=== PATIENT | male | born 1950 | race African-American/Black ===

== ENCOUNTER 2018-02-12 15:46 | Emergency (ER) | payer SELFPAY ==
--- OUTSIDE RECORDS SUMMARY | 2018-02-12 15:56 | XMS REPORT | Continuity of Care Document ---
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 Problem 07/03/2016 [facility] 13 CHEST PAIN, Active [facility] UNSPECIFIED Medications Medication Details Route Status Patient Ordering Order Source Instructions Provider Date lisinopril 2.5 2.5 mg=1 tab, PO, Active mg oral tablet Daily, # 30 tab, 2016 [facility] 0 Refill(s) AMIODarone 200 200 mg=1 tab, PO, Active mg oral tablet BID, please start 2016 [facility] this regimen after 1 week of 400 mg PO BID for 1 week, # 60 tab, 0 Refill(s) Acetaminophen 2 tab, PO, Q6H, Active 300 MG / PRN Pain Score 2016 [facility] Codeine 4-6, X 5 day, # Phosphate 30 MG 40 tab, 0 Oral Tablet Refill(s) [Tylenol with Codeine #3] 200 ACTUAT 2 puff, Active Albuterol 0.09 INHALATION, QID, 2016 [facility] MG/ACTUAT PRN for wheezing, Metered Dose # 25 gm, 0 Inhaler Refill(s) [Proventil] Advair Diskus 1 puff, Active 250 mcg-50 mcg INHALATION, BID, 2016 [facility] inhalation # 60 puff, 0 powder Refill(s) torsemide 10 mg 10 mg=1 tab, PO, Active oral tablet Daily, # 30 tab, 2016 [facility] 0 Refill(s) metoprolol 25 25 mg=1 tab, PO, Active mg oral tablet, Daily, # 30 tab, 2016 [facility] extended 0 Refill(s) release clopidogrel 75 75 mg=1 tab, PO, Active mg oral tablet Daily, # 30 tab, 2016 [facility] 0 Refill(s) atorvastatin 40 40 mg=1 tab, PO, Active mg oral tablet Bedtime, # 30 2016 [facility] tab, 0 Refill(s) aspirin 81 mg 81 mg=1 tab, PO, Active tablet, enteric Daily, # 100 tab, 2016 [facility] coated 0 Refill(s) 12 HR 600 mg=1 tab, PO, Active Guaifenesin 600 Q12H, PRN 2017 [facility] Extended Congestion, X 7 Release Tablet day, # 14 tab, 0 [Mucinex] Refill(s) Amiodarone 400 mg, 2 tab, Inactive Route: PO, Drug 2016 [facility] form: TAB, BID, Dosing Weight 111.384, kg, Priority: NOW, Start date: 06/30/16 7:15:00 CDT, Stop date: 07/14/16 17:00:00 CDTNotes: (Same as: Cordarone) torsemide 10 mg, 1 tab, No Longer Route: PO, Drug Active 2016 [facility] form: TAB, Daily, Dosing Weight 111.384, kg, Start date: 06/29/16 9:00:00 CDT, Duration: 30 day, Stop date: 07/28/16 9:00:00 CDTNotes: (Same As: Demadex) Amiodarone 200 mg, 1 tab, No Longer Route: PO, Drug Active 2016 [facility] form: TAB, TID, Dosing Weight 110.469, kg, Priority: NOW, Start date: 06/28/16 9:06:00 CDT, Duration: 30 day, Stop date: 07/28/16 9:00:00 CDTNotes: (Same as: Cordarone) metoprolol 25 mg, 1 tab, No Longer extended Route: PO, Drug Active 2016 [facility] release form: ERTAB, Daily, Start date: 06/28/16 9:00:00 CDT, Duration: 30 day, Stop date: 07/27/16 9:00:00 CDTNotes: (Same as: Toprol XL) Do Not Crush atorvastatin 40 mg, 1 tab, No Longer Route: PO, Drug Active 2016 [facility] form: TAB, Bedtime, Dosing Weight 103.653, kg, Start date: 06/27/16 21:00:00 CDT, Duration: 30 day, Stop date: 07/26/16 21:00:00 CDTNotes: (Same as: Lipitor) chlorhexidine 1 pkt, Route: No Longer gluconate 40 BATHE, Q-M-W-F, Active 2016 [facility] MG/ML Medicated Drug form: SOLN, Liquid Soap Start date: 06/27/16 9:00:00 CDT, Duration: 30 day, Stop date: 07/25/16 9:00:00 CDTNotes: (Same As: Danieliclewesley) Glucagon 1 mg, Route: IM, No Longer Drug form: Active 2016 [facility] PDR/INJ, PRN, Dosing Weight 103.653, kg, PRN Blood Glucose Results, Start date: 06/26/16 10:21:00 CDT, Duration: 30 day, Stop date: 07/26/16 10:20:00 CDT Dextrose 50% 25 gm, 50 mL, No Longer Syringe Route: IVP, Drug Active 2016 [facility] Form: INJ, Dosing Weight 103.653, kg, PRN, PRN Blood Glucose Results, Start date: 06/26/16 10:21:00 CDT, Duration: 30 day, Stop date: 07/26/16 10:20:00 CDT Insulin, 8 unit, 0.08 mL, No Longer Aspart, Human Route: SUB-Q, Active 2016 [facility] Drug form: SOLN, TID-Before Meals, Dosing Weight 103.653, kg, PRN Blood Glucose Results, Start date: 06/26/16 10:21:00 CDT, Duration: 30 day, Stop date: 07/26/16 10:20:00 CDTNotes: Roll in palms of hands gently; Do not shake vigorously. (Same as: NovoLOG) "single patient use only" WASTE: F/P - Black; E - Municipal Trash Bin Stable for 28 days at room temperature. Expires in days from Dat e Lasix 20 mg, 2 mL, Inactive Route: IVP, Drug 2016 [facility] form: INJ, ONCE, Dosing Weight 103.653, kg, Priority: NOW, Start date: 06/26/16 7:30:00 CDT, Stop date: 06/26/16 7:30:00 CDTNotes: (Same as: Lasix) albumin human 12.5 gm, 250 mL, Inactive 5% intravenous 250 ml/hr, Route: 2016 [facility] solution IV, Drug Form: INJ, Dosing Weight 103.653, kg, ONCE, Start date: 06/26/16 7:30:00 CDT, Stop date: 06/26/16 7:30:00 CDTNotes: LOT#: Mfg: ___ WASTE: F/P - Red; E -Red (Same as: Albuminar) "blood product derivative" glucagon 1 mg, Route: INJ, No Longer Drug form: Active 2016 [facility] PDR/INJ, PRN, PRN Blood Glucose Results, Start date: 06/25/16 22:17:00 CDT, Duration: 30 day, Stop date: 07/25/16 22:16:00 CDT Dextrose 50% in 50 mL, Route: No Longer Water IV IVP, Start date: Active 2016 [facility] 06/25/16 22:17:00 CDT, Duration: 30 day, Stop date: 07/25/16 22:16:00 CDT, PRN Blood Glucose Results insulin aspart 10 unit, 0.1 mL, No Longer Route: SUB-Q, Active 2016 [facility] Drug form: SOLN, Sliding Scale, PRN Blood Glucose Results, Start date: 06/25/16 22:17:00 CDT, Duration: 30 day, Stop date: 07/25/16 22:16:00 CDTNotes: Roll in palms of hands gently; Do not shake vigorously. (Same as: NovoLOG) "single patient use only" WASTE: F/P - Black; E - Municipal Trash Bin Stable for 28 days at room temperature. Expires in days from Dat e atorvastatin 20 mg, 1 tab, No Longer Route: PO, Drug Active 2016 [facility] form: TAB, Bedtime, Dosing Weight 103.653, kg, Start date: 06/25/16 21:00:00 CDT, Duration: 30 day, Stop date: 07/24/16 21:00:00 CDTNotes: (Same As: Lipitor) Lovenox 40 mg, 0.4 mL, No Longer Route: SUB-Q, Active 2016 [facility] Drug form: INJ, [id number], Dosing Weight 103.653, kg, Start date: 06/25/16 20:00:00 CDT, Duration: 30 day, Stop date: 07/24/16 20:00:00 CDTNotes: (Same as: Lovenox) Dilaudid 0.5 mg, 0.5 mL, Inactive Route: IVP, Drug 2016 [facility] form: INJ, ONCE, Dosing Weight 103.653, kg, Priority: STAT, Start date: 06/25/16 18:54:00 CDT, Stop date: 06/25/16 18:54:00 CDT pantoprazole 40 mg, 1 tab, Inactive Route: PO, Drug 2016 [facility] form: ECTAB, Daily, Dosing Weight 103.653, kg, Start date: 06/25/16 9:00:00 CDT, Duration: 30 day, Stop date: 07/24/16 9:00:00 CDTNotes: Tablet should not be chewed or crushed. (Same as: Protonix) Mupirocin 0.02 1 appl, Route: No Longer MG/MG Topical NASAL, BID, Drug Active 2016 [facility] Ointment form: OINT, Start date: 06/25/16 9:00:00 CDT, Duration: 5 day, Stop date: 06/29/16 17:00:00 CDT clopidogrel 75 mg, 1 tab, No Longer Route: PO, Drug Active 2016 [facility] form: TAB, Daily, Dosing Weight 102.926, kg, Start date: 06/25/16 9:00:00 CDT, Duration: 30 day, Stop date: 07/24/16 9:00:00 CDTNotes: (Same As: Plavix) Aspirin 325 MG 325 mg, Route: No Longer Enteric Coated PO, Drug form: Active 2016 [facility] Tablet ECTAB, Daily, Dosing Weight 102.926, kg, Start date: 06/25/16 9:00:00 CDT, Duration: 30 day, Stop date: 07/24/16 9:00:00 CDT heparin 5,000 unit, 1 mL, Inactive Route: SUB-Q, 2016 [facility] Drug form: INJ, Q8H, Dosing Weight 103.653, kg, Start date: 06/25/16 8:00:00 CDT, Duration: 30 day, Stop date: 07/25/16 0:00:00 CDTNotes: porcine heparin vancomycin 1.5 gm, 250 mL, Inactive Route: IVPB, Drug 2016 [facility] form: INJ, [id number], Start date: 06/25/16 1:30:00 CDT, Duration: 2 doses or times, Stop date: 06/25/16 13:30:00 CDTNotes: TIME CRITICAL MEDICATION Same as: Vancocin-NS (premixed) Infusion rate 2001 mg: infuse over 2.5 hours cefuroxime + 1.5 gm, Route: Inactive sodium chloride IVPB, ABXQ8H, 2016 [facility] 0.9% INJ 100 mL Dosing Weight 103.653, kg, Start date: 06/25/16 1:00:00 CDT, Duration: 3 doses or times, Stop date: 06/25/16 17:00:00 CDTNotes: (Same As: Kefurox, Zinacef) MEDICATION WASTE Product Size: 1500 mg Product Wasted: ___ mg Vancomycin 1,554.795 mg, Inactive Route: IVPB, Drug 2016 [facility] form: INJ, Q12H, Dosing Weight 103.653, kg, Time Critical Medication, Start date: 06/24/16 21:00:00 CDT, Duration: 2 doses or times, Stop date: 06/25/16 9:00:00 CDT chlorhexidine 15 ml, Route: No Longer gluconate 1.2 S&SPIT, Q12H, Active 2016 [facility] MG/ML Mouthwash Drug form: LIQ, Start date: 06/24/16 21:00:00 CDT, Duration: 2 week, Stop date: 07/08/16 9:00:00 CDTNotes: (Same As: Peridex) Aspirin 325 MG 325 mg, 1 tab, No Longer Oral Tablet Route: NG, Drug Active 2016 [facility] form: TAB, Daily, Dosing Weight 102.926, kg, Start date: 06/24/16 21:00:00 CDT, Duration: 30 day, Stop date: 07/24/16 9:00:00 CDTNotes: Take with food. EPINEPHrine 4 246 mL, Rate: No Longer mg + sodium Titrate, Route: Active 2016 [facility] chloride 0.9% IV, Dosing Weight INJ 246 mL 103.653 kg, Total Volume: 250, Start date: 06/24/16 18:38:00 CDT, Duration: 30 day, Stop date: 07/24/16 18:37:00 CDTNotes: (Same as: Adrenalin) Suremed - Injectable drug used as inhalation treatment. MEDICATION WASTE Product Size: 1 mg Product Wasted: ___ mg insulin aspart 14 unit, 0.14 mL, No Longer Route: SUB-Q, Active 2016 [facility] Drug form: SOLN, Sliding Scale, PRN Abnormal Lab Result, Start date: 06/24/16 18:37:00 CDT, Duration: 24 hr, Stop date: 06/25/16 18:36:00 CDTNotes: Roll in palms of hands gently; Do not shake vigorously. (Same as: NovoLOG) "single patient use only" WASTE: F/P - Black; E - Municipal Trash Bin Stable for 28 days at room temperature. Expires in days from Dat e insulin aspart 6 unit, 0.06 mL, No Longer Route: SUB-Q, Active 2016 [facility] Drug form: SOLN, Sliding Scale, PRN Abnormal Lab Result, Start date: 06/24/16 18:36:00 CDT, Duration: 24 hr, Stop date: 06/25/16 18:35:00 CDTNotes: Roll in palms of hands gently; Do not shake vigorously. (Same as: NovoLOG) "single patient use only" WASTE: F/P - Black; E - Municipal Trash Bin Stable for 28 days at room temperature. Expires in days from Dat e insulin reg 100 100 unit, 100 mL, No Longer unit-NS 100mL Rate: Titrate, Active 2016 [facility] 100 unit Dosing Weight 103.653, kg, Route: IV, Total Volume: 100, Start Date: 06/24/16 18:35:00 CDT, Duration: 30 day, Stop date: 07/24/16 18:34:00 CDT, Replace Every: 24 hrNotes: Final Concentration 1unit/1ml WASTE: F/P - Black; E - Municipal Trash Bin insulin reg 100 100 unit, 100 mL, Inactive unit-NS 100mL Rate: Titrate, 2016 [facility] 100 unit Dosing Weight 103.653, kg, Route: IV, Total Volume: 100, Start Date: 06/24/16 18:34:00 CDT, Duration: 30 day, Stop date: 07/24/16 18:33:00 CDT, Replace Every: 24 hrNotes: Final Concentration 1unit/1ml WASTE: F/P - Black; E - Municipal Trash Bin albuterol 2.49 mg, 3 mL, No Longer Route: NEB, Drug Active 2016 [facility] form: SOLN, PRN, PRN Respiratory Protocol, Start date: 06/24/16 18:16:00 CDT, Stop date: 07/24/16 18:15:00 CDTNotes: SEE RT DOCUMENTATION (Same as: Proventil) Fentanyl 600 microgram, 30 No Longer mL, Route: IV, Active 2016 [facility] BASIC ACOUSTIC ANALYST Dose: 10 mcg, BASIC ACOUSTIC ANALYST Lockout: 10 minutes, Continuous Basal Rate: 0 mg, 4 Hour Limit (In MCG): 240, Drug Form: INJ, Continuous, Start date: 06/24/16 18:00:00 CDT, Duration: 30 day, Stop date: 07/24/16 17:59:00 CDTNotes: Concentration is 20 micrograms/ml metoprolol 12.5 mg, 0.5 tab, No Longer tartrate Route: PO, Drug Active 2016 [facility] form: TAB, Q6H, Dosing Weight 102.926, kg, Start date: 06/24/16 18:00:00 CDT, Duration: 30 day, Stop date: 07/24/16 12:00:00 CDTNotes: (Same as: Lopressor) Cefuroxime 1.5 gm, Route: Inactive IVPB, ABXQ8H, 2016 [facility] Dosing Weight 103.653, kg, Start date: 06/24/16 18:00:00 CDT, Duration: 3 doses or times, Stop date: 06/25/16 10:00:00 CDTNotes: (Same As: Kefurox, Zinacef) MEDICATION WASTE Product Size: 1500 mg Product Wasted: ___ mg PHOS-NaK 2 pkt, Route: PO, No Longer Drug Form: Active 2016 [facility] PDR/REC, Dosing Weight 103.653, kg, PRN, PRN Abnormal Lab Result, FOR ICU USE ONLY, Start date: 06/24/16 17:44:00 CDT, Duration: 30 day, Stop date: 07/24/16 17:43:00 CDTNotes: (Same as: Phos-NaK) Each 1.5 gm pkt has 250mg phosphorous. Mix w/2.5oz water and stir. potassium 45 mmol, 15 mL, No Longer phosphate + Route: IVPB, PRN, Active 2016 [facility] sodium chloride Dosing Weight 0.9% INJ 250 mL 103.653, kg, PRN Abnormal Lab Result, Start date: 06/24/16 17:44:00 CDT, Duration: 30 day, Stop date: 07/24/16 17:43:00 CDT, FOR ICU USE ONLYNotes: (Same as: K Phosphate.) 1 mMol phoshate has 1.47 mEq potassium Infuse over 4 hours Calcium 1 gm, 50 mL, No Longer Gluconate Route: IVPB, Drug Active 2016 [facility] form: INJ, PRN, Dosing Weight 103.653, kg, PRN Abnormal Lab Result, Start date: 06/24/16 17:44:00 CDT, Duration: 30 day, Stop date: 07/24/16 17:43:00 CDT, FOR ICU USE ONLYNotes: WASTE: F/P - Sink; E - Municipal Trash Bin Magnesium Oxide 800 mg, 2 tab, No Longer Route: PO, Drug Active 2016 [facility] form: TAB, PRN, Dosing Weight 103.653, kg, PRN Abnormal Lab Result, FOR ICU USE ONLY, Start date: 06/24/16 17:44:00 CDT, Duration: 30 day, Stop date: 07/24/16 17:43:00 CDTNotes: (Same as: Mag-Ox 400) Magnesium oxide [id number] elemental magnesium Dose=____mg magnesium oxide (___mg elemental magnesium) Magnesium 2 gm, 50 mL, No Longer Sulfate Route: IVPB, Drug Active 2016 [facility] form: INJ, PRN, Dosing Weight 103.653, kg, PRN Abnormal Lab Result, Start date: 06/24/16 17:44:00 CDT, Duration: 30 day, Stop date: 07/24/16 17:43:00 CDT, FOR ICU USE ONLYNotes: WASTE: F/P - Sink; E - Municipal Trash Bin potassium 20 mEq, 15 mL, No Longer chloride Route: NJ, Drug Active 2016 [facility] form: LIQ, PRN, Dosing Weight 103.653, kg, PRN Abnormal Lab Result, Start date: 06/24/16 17:44:00 CDT, Duration: 30 day, Stop date: 07/24/16 17:43:00 CDT, FOR ICU USE ONLYNotes: (Same as: Potassium Chloride) Calcium 1,000 mg, 2 tab, No Longer Carbonate 500 Route: CHEW, Drug Active 2016 [facility] Chewable form: CHEWTAB, Tablet PRN, Dosing Weight 103.653, kg, PRN Abnormal Lab Result, FOR ICU USE ONLY, Start date: 06/24/16 17:44:00 CDT, Duration: 30 day, Stop date: 07/24/16 17:43:00 CDTNotes: (Same As: Tums) Calcium Carbonate 500 ev=993 mg elemental calcium Dose= mg calcium carbonate ( mg elemental calcium) Insulin, 3 unit, 0.03 mL, Inactive Aspart, Human Route: SUB-Q, 2016 [facility] Drug form: SOLN, TID-Before Meals, Dosing Weight 103.653, kg, PRN Blood Glucose Results, Start date: 06/24/16 17:44:00 CDT, Duration: 30 day, Stop date: 07/24/16 17:43:00 CDTNotes: Roll in palms of hands gently; Do not shake vigorously. (Same as: NovoLOG) "single patient use only" WASTE: F/P - Black; E - Municipal Trash Bin Stable for 28 days at room temperature. Expires in days from Dat e sodium 45 mmol, 15 mL, No Longer phosphate + Route: IVPB, PRN, Active 2016 [facility] sodium chloride Dosing Weight 0.9% INJ 250 mL 103.653, kg, PRN Abnormal Lab Result, Start date: 06/24/16 17:44:00 CDT, Duration: 30 day, Stop date: 07/24/16 17:43:00 CDT, FOR ICU USE ONLY potassium 15 mmol, 250 mL, No Longer phosphate Route: IVPB, Drug Active 2016 [facility] form: INJ, PRN, Dosing Weight 103.653, kg, PRN Abnormal Lab Result, Start date: 06/24/16 17:44:00 CDT, Duration: 30 day, Stop date: 07/24/16 17:43:00 CDT, FOR ICU USE ONLYNotes: (Same as: K Phosphate) sodium 15 mmol, 250 mL, No Longer phosphate Route: IVPB, Drug Active 2016 [facility] form: INJ, PRN, Dosing Weight 103.653, kg, PRN Abnormal Lab Result, Start date: 06/24/16 17:44:00 CDT, Duration: 30 day, Stop date: 07/24/16 17:43:00 CDT, FOR ICU USE ONLY Naloxone 0.04 mg, 0.1 mL, No Longer Route: IVP, Drug Active 2016 [facility] form: INJ, Q2MIN, Dosing Weight 103.653, kg, PRN Narcotic Reversal, Start date: 06/24/16 17:44:00 CDT, Duration: 30 day, Stop date: 07/24/16 17:43:00 CDTNotes: Same as Narcan Saline Flush 10 ml, Route: No Longer 0.9% IVP, Drug Form: Active 2016 [facility] INJ, Dosing Weight 103.653, kg, PRN, PRN Line Flush, Start date: 06/24/16 17:44:00 CDT, Duration: 30 day, Stop date: 07/24/16 17:43:00 CDTNotes: (Same as: BD Posiflush) Dulcolax 10 mg, 1 supp, No Longer Laxative Route: PA, Drug Active 2016 [facility] form: SUPP, Daily, Dosing Weight 102.926, kg, PRN Constipation, Start date: 06/24/16 17:44:00 CDT, Duration: 30 day, Stop date: 07/24/16 17:43:00 CDTNotes: (Same As: Dulcolax, Bisco-Lax) Lactulose 667 20 gm, 30 mL, No Longer MG/ML Oral Route: PO, Drug Active 2016 [facility] Solution form: SYRP, Daily, Dosing Weight 102.926, kg, PRN as needed for constipation, Start date: 06/24/16 17:44:00 CDT, Duration: 30 day, Stop date: 07/24/16 17:43:00 CDTNotes: (Same as:Chronulac) albumin human 12.5 gm, 250 mL, No Longer 5% intravenous 500 ml/hr, Route: Active 2016 [facility] solution IVPB, Drug Form: INJ, Dosing Weight 102.926, kg, ONCE, PRN Hypotension, Start date: 06/24/16 17:44:00 CDTNotes: LOT#: Mfg: ___ WASTE: F/P - Red; E -Red (Same as: Albuminar) "blood product derivative" Acetaminophen 1 tab, Route: PO, No Longer 300 MG / Drug Form: TAB, Active 2016 [facility] Codeine Dosing Weight Phosphate 30 MG 102.926, kg, Q6H, Oral Tablet PRN Pain Score [Tylenol with 1-3, Start date: Codeine #3] 06/24/16 17:44:00 CDT, Duration: 30 day, Stop date: 07/24/16 17:43:00 CDTNotes: Do not exceed 4gm/day of acetaminophen. (Same as: Tylenol with Codeine # 3) Zofran 4 mg, 2 mL, No Longer Route: IVP, Drug Active 2016 [facility] form: INJ, Q8H, Dosing Weight 102.926, kg, PRN Nausea, Start date: 06/24/16 17:44:00 CDT, Duration: 30 day, Stop date: 07/24/16 17:43:00 CDTNotes: (Same as: Zofran) MEDICATION WASTE Product Size: 4 mg Product Wasted: ___ mg Xopenex 1.25 mg, Route: Inactive NEB, PRN, Dosing 2016 [facility] Weight 102.926, kg, PRN Respiratory Protocol, Start date: 06/24/16 17:44:00 CDT, Duration: 30 day, Stop date: 07/24/16 17:43:00 CDT Morphine 8 mg, 2 mL, No Longer Route: IM, Drug Active 2016 [facility] form: INJ, Q3H, Dosing Weight 102.926, kg, PRN Pain Score 7-10, Start date: 06/24/16 17:44:00 CDT, Duration: 30 day, Stop date: 07/24/16 17:43:00 CDTNotes: (Same as:MORPhine Sulfate) Albuterol 0.833 3 ml, Route: NEB, No Longer MG/ML / Drug Form: SOLN, Active 2016 [facility] Ipratropium Dosing Weight [place] 0.167 103.653, kg, PRN, MG/ML Inhalant PRN Respiratory Solution Protocol, Start date: 06/24/16 17:44:00 CDT, Duration: 30 day, Stop date: 07/24/16 17:43:00 CDTNotes: (Same as: Duoneb) Glucagon 1 mg, Route: IM, No Longer Drug form: Active 2016 [facility] PDR/INJ, PRN, Dosing Weight 103.653, kg, PRN Blood Glucose Results, Start date: 06/24/16 17:44:00 CDT, Duration: 30 day, Stop date: 07/24/16 17:43:00 CDT Nitroglycerin 0.4 mg, 1 tab, No Longer Route: SL, Drug Active 2016 [facility] form: TAB, Q5Min, Dosing Weight 103.653, kg, PRN Chest Pain, Start date: 06/24/16 17:44:00 CDT, Duration: 3 doses or times, Stop date: Limited # of timesNotes: (Same as:Nitroquick, Nitrostat) "Do Not Crush" Sublingual tablet Docusate 100 mg, 1 cap, No Longer Route: PO, Drug Active 2016 [facility] form: CAP, BID, Dosing Weight 103.653, kg, PRN Constipation, Start date: 06/24/16 17:44:00 CDT, Duration: 30 day, Stop date: 07/24/16 17:43:00 CDTNotes: (Same as: Colace) (Do Not Crush) Ondansetron 4 mg, 2 mL, Inactive Route: IVP, Drug 2016 [facility] form: INJ, Q8H, Dosing Weight 103.653, kg, PRN Nausea & Vomiting, Start date: 06/24/16 17:44:00 CDT, Duration: 30 day, Stop date: 07/24/16 17:43:00 CDTNotes: (Same as: Zofran) MEDICATION WASTE Product Size: 4 mg Product Wasted: ___ mg Dextrose 50% 25 gm, 50 mL, No Longer Syringe Route: IVP, Drug Active 2016 [facility] Form: INJ, Dosing Weight 103.653, kg, PRN, PRN Blood Glucose Results, Start date: 06/24/16 17:44:00 CDT, Duration: 30 day, Stop date: 07/24/16 17:43:00 CDT Acetaminophen 650 mg, 2 tab, No Longer Route: PO, Drug Active 2016 [facility] form: TAB, Q4H, Dosing Weight 103.653, kg, PRN Pain 1-3/Temp > 100.4 F, Start date: 06/24/16 17:44:00 CDT, Duration: 30 day, Stop date: 07/24/16 17:43:00 CDTNotes: Do not exceed 4 gm/day. (Same as: Tylenol) vasopressin Route: IV, Drug Inactive 06/24/ MH (ANES) form: INJ, ONCE, 2016 [facility] Stop date: 06/24/16 17:40:00 CDT ondansetron Route: IV, Drug Inactive 06/24/ MH (ANES) form: INJ, ONCE, 2016 Stop date: 06/24/16 17:23:00 CDT protamine Route: IV, Drug Inactive 06/24/ MH (ANES) form: INJ, ONCE, 2016 [facility] Stop date: 06/24/16 17:03:00 CDT calcium Route: IV, Drug Inactive MH chloride (ANES) form: INJ, ONCE, 2016 [facility] Stop date: 06/24/16 16:48:00 CDT nitroglycerin Route: IV, Drug Inactive MH (ANES) form: INJ, ONCE, 2016 Stop date: 06/24/16 15:17:00 CDT heparin (ANES) Route: IV, Drug Inactive form: INJ, ONCE, 2016 [facility] Stop date: 06/24/16 15:07:00 CDT fentaNYL (ANES) Route: IV, Drug Inactive MH form: INJ, ONCE, 2016 [facility] Stop date: 06/24/16 14:31:00 CDT ePHEDrine Route: IV, Drug Inactive MH (ANES) form: INJ, ONCE, 2016 Stop date: 06/24/16 14:11:00 CDT cefuroxime Route: IV, Drug Inactive 06/24/ MH (ANES) form: INJ, ONCE, 2016 Stop date: 06/24/16 14:11:00 CDT rocuronium Route: IV, Drug Inactive 06/24/ MH (ANES) form: INJ, ONCE, 2016 Stop date: 06/24/16 14:06:00 CDT propofol (ANES) Route: IV, Drug Inactive 06/24/ MH form: INJ, ONCE, 2016 [facility] Stop date: 06/24/16 14:06:00 CDT Amicar (ANES) Route: IV, Drug Inactive MH (ANES) + form: INJ, Dosing 2016 [facility] Weight 103.7, kg, Start date: 06/24/16 13:35:00 CDT, Stop date: 06/24/16 14:35:00 CDT vancomycin Route: IV, Drug Inactive 06/24/ MH (ANES) (ANES) form: INJ, Start 2016 [facility] date: 06/24/16 13:29:00 CDT, Stop date: 06/24/16 14:29:00 CDT midazolam Route: IV, Drug Inactive MH (ANES) form: SOLN, ONCE, 2016 [facility] Stop date: 06/24/16 13:11:00 CDT morphine Route: IV, Drug Inactive MH Sulfate (ANES) form: INJ, ONCE, 2016 [facility] Stop date: 06/24/16 13:11:00 CDT Isolyte S (PH Route: IV, Total Inactive MH 7.4) 1000 mL Volume: 1,000, 2016 [facility] (ANES) Start date: 06/24/16 12:39:00 CDT, Stop date: 06/24/16 13:39:00 CDT sodium chloride 1,000 mL, Rate: No Longer MH 0.9% 1000 ml 125 ml/hr, Infuse Active 2016 [facility] INJ 1,000 mL over: 8 hr, Route: IV, Dosing Weight 99.563 kg, Total Volume: 1,000, Start date: 06/22/16 7:35:00 CDT, Duration: 30 day, Stop date: 07/22/16 7:34:00 CDT Sodium Chloride 250 mL, 250 Inactive MH 0.154 MEQ/ML ml/hr, Infuse 2017 [facility] Injectable Over: 1 hr, Solution Route: IV, 250, Drug form: INJ, ONCE, Priority: STAT, Dosing Weight 99.563 kg, Start date: 06/22/16 7:34:00 CDT, Duration: 1 doses or times, Stop date: 06/22/16 7:34:00 CDT sodium chloride 1,000 mL, Rate: Inactive 06/22/ MH 0.9% 1000 ml 125 ml/hr, Infuse 2017 [facility] INJ 1,000 mL over: 8 hr, Route: IV, Dosing Weight 99.563 kg, Total Volume: 1,000, Start date: 06/22/16 7:19:00 CDT, Duration: 30 day, Stop date: 07/22/16 7:18:00 CDT Lopressor 50 mg, 1 tab, No Longer Route: PO, Drug Active 2016 [facility] form: TAB, BID, Dosing Weight 102.926, kg, Start date: 06/19/16 18:00:00 CDT, Duration: 30 day, Stop date: 07/19/16 17:00:00 CDTNotes: (Same as: Lopressor) Lopressor 50 mg, 1 tab, Inactive Route: PO, Drug 2016 [facility] form: TAB, Q8Hnow, Dosing Weight 102.926, kg, Start date: 06/19/16 17:00:00 CDT, Duration: 30 day, Stop date: 07/19/16 9:00:00 CDTNotes: (Same as: Lopressor) Levemir 10 unit, 0.1 mL, No Longer Route: SUB-Q, Active 2016 [facility] Drug form: INJ, Bedtime, Dosing Weight 102.926, kg, Start date: 06/17/16 21:00:00 CDT, Duration: 30 day, Stop date: 07/16/16 21:00:00 CDTNotes: Same as Levemir Do not hold insulin without contacting prescriber WASTE: F/P - Black; E - Municipal Trash Bin "single patient use only" Saline Flush 10 ml, Route: No Longer 0.9% IVP, Drug Form: Active 2016 [facility] INJ, Dosing Weight 102.926, kg, Q12H, Start date: 06/17/16 21:00:00 CDT, Duration: 30 day, Stop date: 07/17/16 9:00:00 CDTNotes: (Same as: BD Posiflush) chlorhexidine 15 ml, Route: No Longer gluconate 1.2 S&SPIT, BID, Drug Active 2016 [facility] MG/ML Mouthwash form: LIQ, Start date: 06/17/16 20:00:00 CDT, Duration: 30 day, Stop date: 07/17/16 17:00:00 CDTNotes: (Same As: Peridex) Cefazolin 2 gm, 100 mL, No Longer Route: IVPB, Drug Active 2016 [facility] form: INJ, ONCALL, Dosing Weight 102.926, kg, Start date: 06/17/16 19:00:00 CDT, Duration: 30 day, Stop date: 07/17/16 18:59:00 CDTNotes: Same as: Ancef Mupirocin 0.02 1 appl, Route: No Longer MG/MG Topical NASAL, ONCALL, Active 2016 [facility] Ointment Drug form: OINT, Start date: 06/17/16 19:00:00 CDT, Duration: 30 day, Stop date: 07/17/16 18:59:00 CDT sodium chloride 250 mL, Rate: On No Longer 0.9% INJ 250 mL call for use with Active 2016 [facility] blood product administration, Dosing Weight 102.926, kg, Route: IV, Total Volume: 250, Start Date: 06/17/16 18:54:00 CDT, Duration: 30 day, Stop date: 07/17/16 18:53:00 CDT, Replace Every: 24 hr Saline Flush 10 ml, Route: No Longer 0.9% IVP, Drug Form: Active 2016 [facility] INJ, Dosing Weight 102.926, kg, PRN, PRN Line Flush, Start date: 06/17/16 18:54:00 CDT, Duration: 30 day, Stop date: 07/17/16 18:53:00 CDTNotes: (Same as: BD Posiflush) metoprolol 12.5 mg, Route: Inactive tartrate PO, Drug form: 2016 [facility] TAB, Q12H, Dosing Weight 102.926, kg, Priority: NOW, Start date: 06/17/16 18:54:00 CDT, Duration: 30 day, Stop date: 07/17/16 9:00:00 CDT Nitroglycerin 1 inch, Route: No Longer 0.02 MG/MG TOP, Drug Form: Active 2016 [facility] Topical OINT, Dosing Ointment Weight 102.926, kg, Q6H, Start date: 06/17/16 12:00:00 CDT, Duration: 30 day, Stop date: 07/17/16 6:00:00 CDTNotes: 1 gram is approximately 1 inch of nitroglycerin ointment (20 mg NTG per gram) (Same as:Nitro-Bid) Enoxaparin 100 mg, 1 mL, No Longer Route: SUB-Q, Active 2016 [facility] Drug form: INJ, [id number], Dosing Weight 102.926, kg, Start date: 06/17/16 9:00:00 CDT, Duration: 30 day, Stop date: 07/16/16 21:00:00 CDTNotes: Nurse to ensure documentation of patient education per anticoagulation policy. (Same as: Lovenox) Albuterol 0.833 3 mL, Route: NEB, No Longer MG/ML / Drug Form: SOLN, Active 2016 [facility] Ipratropium Dosing Weight [place] 0.167 102.926, kg, MG/ML Inhalant RQ6H, Start date: Solution 06/16/16 20:00:00 [DuoNeb] CDT, Duration: 30 day, Stop date: 07/16/16 14:00:00 CDTNotes: (Same as: Duoneb) Budesonide 0.25 0.5 mg, 2 mL, No Longer MG/ML Inhalant Route: NEB, Drug Active 2016 [facility] Solution form: SUSP, [Pulmicort] RQ12H, Dosing Weight 102.926, kg, Start date: 06/16/16 18:32:00 CDT, Duration: 30 day, Stop date: 07/16/16 16:00:00 CDTNotes: (Same As: Pulmicort) Solu-Medrol 80 mg, 1.28 mL, Inactive Route: IVP, Drug 2016 [facility] form: INJ, ONCE, Dosing Weight 102.926, kg, Start date: 06/16/16 18:12:00 CDT, Stop date: 06/16/16 18:12:00 CDTNotes: (Same as:Solu-MEDROL, A-Methapred) Lovenox 100 mg, 1 mL, Inactive Route: SUB-Q, 2016 [facility] Drug form: INJ, ONCE, Dosing Weight 102.926, kg, Start date: 06/16/16 18:00:00 CDT, Stop date: 06/16/16 18:00:00 CDTNotes: Nurse to ensure documentation of patient education per anticoagulation policy. (Same as: Lovenox) Sodium Chloride 250 mL, 250 No Longer 0.154 MEQ/ML ml/hr, Infuse Active 2016 [facility] Injectable Over: 1 hr, Solution Route: IV, 250, Drug form: INJ, ONCALL, Priority: Routine, Dosing Weight 102.926 kg, Start date: 06/16/16 17:00:00 CDT, Duration: 1 doses or times Sodium Chloride 750 mL, Rate: 75 Inactive 0.154 MEQ/ML ml/hr, Infuse 2016 [facility] Injectable over: 10 hr, Solution Route: IV, Dosing Weight 102.926 kg, Total Volume: 750, Start date: 06/16/16 16:15:00 CDT, Stop date: 06/17/16 16:14:00 CDT acetaminophen-c 1 tab, Route: PO, No Longer odeine #3 Drug Form: TAB, Active 2016 [facility] Dosing Weight 102.926, kg, Q4H, PRN Pain Score 4-6, Start date: 06/16/16 16:11:00 CDT, Duration: 30 day, Stop date: 07/16/16 16:10:00 CDTNotes: Do not exceed 4gm/day of acetaminophen. (Same as: Tylenol with Codeine # 3) Acetaminophen 650 mg, 2 tab, No Longer Route: PO, Drug Active 2016 [facility] form: TAB, Q4H, Dosing Weight 102.926, kg, PRN Pain Score 7-10, Start date: 06/16/16 16:11:00 CDT, Duration: 30 day, Stop date: 07/16/16 16:10:00 CDTNotes: Do not exceed 4 gm/day. (Same as: Tylenol) Sodium Chloride 500 mL, Rate: 150 Inactive 0.154 MEQ/ML ml/hr, Infuse 2017 [facility] Injectable over: 3.3 hr, Solution Route: IV, Dosing Weight 102.926 kg, Total Volume: 500, Start date: 06/16/16 16:11:00 CDT, Stop date: 06/16/16 20:10:00 CDT Sodium Chloride 250 mL, Route: No Longer 0.9% IV IVPB, Start date: Active 2016 [facility] 06/16/16 15:49:00 CDT, Duration: 30 day, Stop date: 07/16/16 15:48:00 CDT, PRN Line Flush Dextrose 50% 25 gm, 50 mL, No Longer Syringe Route: IVP, Drug Active 2016 [facility] Form: INJ, Dosing Weight 102.926, kg, PRN, PRN Blood Glucose Results, Start date: 06/16/16 15:45:00 CDT, Duration: 30 day, Stop date: 07/16/16 15:44:00 CDT Insulin, 5 unit, 0.05 mL, No Longer Aspart, Human Route: SUB-Q, Active 2016 [facility] Drug form: SOLN, TID-Before Meals, Dosing Weight 102.926, kg, PRN Blood Glucose Results, Start date: 06/16/16 15:45:00 CDT, Duration: 30 day, Stop date: 07/16/16 15:44:00 CDTNotes: Roll in palms of hands gently; Do not shake vigorously. (Same as: NovoLOG) "single patient use only" WASTE: F/P - Black; E - Municipal Trash Bin Stable for 28 days at room temperature. Expires in days from Dat e Glucagon 1 mg, Route: IM, No Longer Drug form: Active 2016 [facility] PDR/INJ, PRN, Dosing Weight 102.926, kg, PRN Blood Glucose Results, Start date: 06/16/16 15:45:00 CDT, Duration: 30 day, Stop date: 07/16/16 15:44:00 CDT Sodium Chloride 1,000 mL, Rate: Inactive 0.154 MEQ/ML 100 ml/hr, Infuse 2016 [facility] Injectable over: 10 hr, Solution Route: IV, Dosing Weight 102.926 kg, Total Volume: 1,000, Start date: 06/16/16 9:19:00 CDT, Duration: 30 day, Stop date: 07/16/16 9:18:00 CDT aspirin 81 mg 81 mg, 1 tab, No Longer tablet, enteric Route: PO, Drug Active 2016 [facility] coated form: ECTAB, Daily, Dosing Weight 102.926, kg, Start date: 06/16/16 9:00:00 CDT, Duration: 30 day, Stop date: 07/15/16 9:00:00 CDTNotes: Do not crush or chew. (Same As: Ecotrin) Nitroglycerin 0.5 inch, Route: Inactive 0.02 MG/MG TOP, Drug Form: 2016 [facility] Topical OINT, Dosing Ointment Weight 102.926, kg, TID, Start date: 06/16/16 6:00:00 CDT, Duration: 30 day, Stop date: 07/15/16 18:00:00 CDTNotes: 1 gram is approximately 1 inch of nitroglycerin ointment (20 mg NTG per gram) (Same as:Nitro-Bid) metoprolol 50 mg, 1 tab, No Longer tartrate Route: PO, Drug Active 2016 [facility] form: TAB, Q8H, Dosing Weight 102.926, kg, Start date: 06/16/16 0:00:00 CDT, Duration: 30 day, Stop date: 07/15/16 16:00:00 CDTNotes: (Same as: Lopressor) Sodium Chloride 250 mL, 250 Inactive 0.154 MEQ/ML ml/hr, Infuse 2016 [facility] Injectable Over: 1 hr, Solution Route: IV, 250, Drug form: INJ, ONCALL, Priority: Routine, Dosing Weight 102.926 kg, Start date: 06/15/16 22:00:00 CDT, Duration: 1 doses or times Sodium Chloride 750 mL, Rate: 75 No Longer 0.154 MEQ/ML ml/hr, Infuse Active 2016 [facility] Injectable over: 10 hr, Solution Route: IV, Dosing Weight 102.926 kg, Total Volume: 750, Start date: 06/15/16 21:02:00 CDT, Duration: 24 hr, Stop date: 06/16/16 21:01:00 CDT Saline Flush 10 ml, Route: No Longer 0.9% IVP, Drug Form: Active 2016 [facility] INJ, Dosing Weight 102.926, kg, Q12H, Start date: 06/15/16 21:00:00 CDT, Duration: 30 day, Stop date: 07/15/16 9:00:00 CDTNotes: (Same as: BD Posiflush) atorvastatin 40 mg, 1 tab, No Longer Route: PO, Drug Active 2016 [facility] form: TAB, Bedtime, Dosing Weight 102.926, kg, Start date: 06/15/16 21:00:00 CDT, Duration: 30 day, Stop date: 07/14/16 21:00:00 CDTNotes: (Same as: Lipitor) metoprolol 25 mg, Route: PO, Inactive tartrate Drug form: TAB, 2016 [facility] Q12H, Dosing Weight 102.926, kg, Start date: 06/15/16 21:00:00 CDT, Duration: 30 day, Stop date: 07/15/16 9:00:00 CDT Enoxaparin 100 mg, 1 mL, No Longer Route: SUB-Q, Active 2016 [facility] Drug form: INJ, [id number], Dosing Weight 102.926, kg, Start date: 06/15/16 19:00:00 CDT, Duration: 30 day, Stop date: 07/15/16 7:00:00 CDTNotes: Nurse to ensure documentation of patient education per anticoagulation policy. (Same as: Lovenox) Albuterol 0.833 3 ml, Route: NEB, No Longer MG/ML / Drug Form: SOLN, Active 2016 [facility] Ipratropium Dosing Weight [place] 0.167 102.926, kg, PRN, MG/ML Inhalant PRN Respiratory Solution Protocol, Start [DuoNeb] date: 06/15/16 13:56:00 CDT, Duration: 30 day, Stop date: 07/15/16 13:55:00 CDTNotes: (Same as: Duoneb) Saline Flush 10 ml, Route: No Longer 0.9% IVP, Drug Form: Active 2016 [facility] INJ, Dosing Weight 102.926, kg, PRN, PRN Line Flush, Start date: 06/15/16 13:52:00 CDT, Duration: 30 day, Stop date: 07/15/16 13:51:00 CDTNotes: (Same as: BD Posiflush) Labetalol 20 mg, 4 mL, No Longer Route: IVP, Drug Active 2016 [facility] form: INJ, Q4H, Dosing Weight 102.926, kg, PRN Hypertension, Start date: 06/15/16 13:52:00 CDT, Duration: 30 day, Stop date: 07/15/16 13:51:00 CDT, for SBP>180 or DBP>110, hold if HRNotes: (Same as: Normodyne, Trandate) Push over 2 minutes Give bolus over 2-3 minutes. Trazodone 50 mg, 1 tab, No Longer Hydrochloride Route: PO, Drug Active 2016 [facility] 50 MG Oral form: TAB, Tablet Bedtime, Dosing Weight 102.926, kg, PRN Insomnia, Start date: 06/15/16 13:52:00 CDT, Duration: 30 day, Stop date: 07/15/16 13:51:00 CDTNotes: (Same As: Desyrel) Miralax 17 gm, 1 pkt, No Longer Route: PO, Drug Active 2016 [facility] form: PWDR, Daily, Dosing Weight 102.926, kg, PRN Constipation, Start date: 06/15/16 13:52:00 CDT, Duration: 30 day, Stop date: 07/15/16 13:51:00 CDTNotes: Dissolve in 8 oz of water or juice. (Same as: Miralax) Nitroglycerin 0.4 mg, 1 tab, No Longer Route: SL, Drug Active 2016 [facility] form: TAB, Q5Min, Dosing Weight 102.926, kg, PRN Chest Pain, Start date: 06/15/16 13:52:00 CDT, Duration: 3 doses or times, Stop date: Limited # of timesNotes: (Same as:Nitroquick, Nitrostat) "Do Not Crush" Sublingual tablet Morphine 1 mg, 0.5 mL, No Longer Route: IVP, Drug Active 2016 [facility] form: INJ, Q2H, Dosing Weight 102.926, kg, PRN Chest Pain, Start date: 06/15/16 13:52:00 CDT, Duration: 2 doses or times, Stop date: Limited # of timesNotes: (Same as:MORPhine Sulfate) Ondansetron 4 mg, 1 tab, No Longer Route: PO, Drug Active 2016 [facility] form: TAB, Q8H, Dosing Weight 102.926, kg, PRN Nausea & Vomiting, Start date: 06/15/16 13:52:00 CDT, Duration: 30 day, Stop date: 07/15/16 13:51:00 CDTNotes: (Same as: Zofran) Allergies, Adverse Reactions, Alerts Substance Category Reaction Severity Reaction Status Date Comments Source type Reported Betadine Assertion Drug Active allergy [facility] Immunizations Immunization Date Site Status Last Updated Comments Source Given pneumococcal Right completed [facility] 13-valent 7 deltoid vaccine Results Order Name Results Value Reference Date Interpretation Comments Source Range CHEM PANEL eGFR 69 06/30 Result Comment: The eGFR is calculated using the CKD-EPI formula. In most young, healthy individuals the eGFR will be >90 mL/ min/1.73m2. The eGFR declines with age. An eGFR of 60-89 may be normal in mL/min/1.7 some populations, particularly the elderly, for whom the CKD-EPI formula has not been extensively validated. Use of the eGFR is not recommended in the following populations: [facility] 3m2 Individuals with unstable creatinine concentrations, including patients and those with serious co-morbid conditions. Patients with extremes in muscle mass or diet. The data above are obtained from the National Kidney Disease Education Program (NKDEP) which additionally recommends that when the eGFR is used in patients with extremes of body mass index for purposes of drug dosing, the eGFR should be multiplied by the estimated BMI. CHEM PANEL Glucose Lvl 104 mg/dL 70 - 99 06/30 [facility] CHEM PANEL Potassium 4.0 meq/L 3.5 - 5.1 06/30 Lvl [facility] CHEM PANEL Sodium Lvl 140 meq/L 135 - 145 06/30 [facility] CHEM PANEL Creatinine 1.10 mg/dL 0.50 - 06/30 Lvl 1.40 [facility] CHEM PANEL BUN 21 mg/dL 7 - 22 06/30 [facility] CHEM PANEL AGAP 13.0 meq/L 10.0 - 04/ MH 20.0 [facility] CHEM PANEL CO2 27 meq/L 24 - 32 06/30 [facility] CHEM PANEL Calcium Lvl 8.2 mg/dL 8.5 - 10.5 06/30 [facility] CHEM PANEL Chloride Lvl 104 meq/L 95 - 109 06/30 [facility] Chest Chest 1view Clinical Indication:65 years Male with Tube placement/ removal/reposition 06/30 - 1view DX DX /2016 - [facility] Comparison: Chest x-ray of 06/27/2016 Read by: Beck Aggarwal MD Dictated Date/time: 06/30/16 07:28 FINDINGS: Electronically Signed by: Beck Aggarwal MD 06/30/16 07:30 FINAL REPORT Lines: Right IJ central venous catheter is unchanged. Left chest tube and mediastinal drain have been removed. The single frontal chest radiograph shows normal lung volumes. Linear bibasilar and perihilar opacities Probable small left pleural effusion. No pneumothorax. Cardiac silhouette is stable. Surgical changes of the mediastinum. Calcified hilar/mediastinal lymph nodes.. Pulmonary vasculature is normal. The trachea is midline. There are no acute osseous abnormalities noted. IMPRESSION: No new acute abnormalities. Bibasilar/perihilar atelectasis and likely small left pleural effusion. CHEM PANEL Magnesium 2.6 mg/dL 1.8 - 2.4 06/29 Lvl /2016 [facility] ELECTROLYT AGAP 15.4 meq/L 10.0 - 06/29 ES 20.0 [facility] ELECTROLYT eGFR 69 06/29 Result Comment: The eGFR is calculated using the CKD-EPI formula. In most young, healthy individuals the eGFR will be >90 mL/ min/1.73m2. The eGFR declines with age. An eGFR of 60-89 may be normal in ES mL/min/1.7 /2016 some populations, particularly the elderly, for whom the CKD-EPI formula has not been extensively validated. Use of the eGFR is not recommended in the following populations: [facility] 3m2 Individuals with unstable creatinine concentrations, including patients and those with serious co-morbid conditions. Patients with extremes in muscle mass or diet. The data above are obtained from the National Kidney Disease Education Program (NKDEP) which additionally recommends that when the eGFR is used in patients with extremes of body mass index for purposes of drug dosing, the eGFR should be multiplied by the estimated BMI. ELECTROLYT Glucose Lvl 110 mg/dL 70 - 99 06/29 [facility] ELECTROLYT BUN 26 mg/dL 7 - 22 06/29 [facility] ELECTROLYT Chloride Lvl 105 meq/L 95 - 109 06/29 [facility] ELECTROLYT Creatinine 1.10 mg/dL 0.50 - 04 [facility] Lvl 1.40 /2016 [facility] ELECTROLYT Sodium Lvl 137 meq/L 135 - 145 06/29 [facility] ELECTROLYT Potassium 4.4 meq/L 3.5 - 5.1 06/29 [facility] ELECTROLYT CO2 21 meq/L 24 - 32 06/29 [facility] ELECTROLYT Calcium Lvl 8.1 mg/dL 8.5 - 10.5 06/29 [facility] HEMATOLOGY Basophils 0.3 % 0.0 - 1.0 06/29 [facility] HEMATOLOGY Segs-Bands # 9.5 K/CMM 1.5 - 8.1 06/29 [facility] HEMATOLOGY Lymphocytes 1.2 K/CMM 1.0 - 5.5 06/29 [facility] HEMATOLOGY Monocytes # 1.4 K/CMM 0.0 - 0.8 06/29 [facility] HEMATOLOGY Basophils # 0.0 K/CMM 0.0 - 0.2 06/29 [facility] HEMATOLOGY Eosinophils 0.2 K/CMM 0.0 - 0.5 06/29 [facility] HEMATOLOGY Polychrom Moderate None Seen 06/29 [facility] *ABN* (06/29/16 5:06 AM) HEMATOLOGY Plt Morph Normal 06/29 [facility] (06/29/16 5:06 AM) HEMATOLOGY Lymphocytes 9.7 % 20.0 - 06/29 40.0 [facility] HEMATOLOGY Segs 77.0 % 45.0 - 06/29 75.0 [facility] HEMATOLOGY Eosinophils 1.6 % 0.0 - 4.0 06/29 [facility] HEMATOLOGY Monocytes 11.4 % 2.0 - 12.0 06/29 [facility] HEMATOLOGY MCH 28.6 pg 27.0 - 06/29 MH 31.0 [facility] Platelet 163 K/CMM 133 - 450 04 [facility] HEMATOLOGY RDW 14.2 % 11.5 - 06/29 MH 14.5 [facility] HEMATOLOGY MCHC 33.9 g/dL 32.0 - 06/29 MH 36.0 /2016 [facility] MPV 8.3 fL 7.4 - 10.4 06/29 [facility] HEMATOLOGY RBC 3.11 M/CMM 4.70 - 06/29 6.10 [facility] HEMATOLOGY WBC 12.3 K/CMM 3.7 - 10.4 06/29 [facility] HEMATOLOGY MCV 84.3 fL 80.0 - 06/29 MH 94.0 /2016 [facility] HEMATOLOGY Hct 26.2 % 42.0 - 06/29 54.0 [facility] Hgb 8.9 g/dL 14.0 - 06/29 18.0 [facility] CHEM PANEL eGFR 56 06/28 Result Comment: The eGFR is calculated using the CKD-EPI formula. In most young, healthy individuals the eGFR will be >90 mL/ min/1.73m2. The eGFR declines with age. An eGFR of 60-89 may be normal in mL/min/1. some populations, particularly the elderly, for whom the CKD-EPI formula has not been extensively validated. Use of the eGFR is not recommended in the following populations: [facility] 3m2 Individuals with unstable creatinine concentrations, including patients and those with serious co-morbid conditions. Patients with extremes in muscle mass or diet. The data above are obtained from the National Kidney Disease Education Program (NKDEP) which additionally recommends that when the eGFR is used in patients with extremes of body mass index for purposes of drug dosing, the eGFR should be multiplied by the estimated BMI. CHEM PANEL Calcium Lvl 8.3 mg/dL 8.5 - 10.5 06/28 [facility] CHEM PANEL Potassium 4.5 meq/L 3.5 - 5.1 06/28 Lvl [facility] CHEM PANEL CO2 24 meq/L 24 - 32 06/28 [facility] CHEM PANEL Chloride Lvl 107 meq/L 95 - 109 06/28 [facility] CHEM PANEL Glucose Lvl 118 mg/dL 70 - 99 06/28 [facility] CHEM PANEL BUN 29 mg/dL 7 - 22 06/28 [facility] CHEM PANEL Sodium Lvl 139 meq/L 135 - 145 04/ /2016 [facility] CHEM PANEL Creatinine 1.30 mg/dL 0.50 - 06/28 MH Lvl 1.40 /2016 [facility] CHEM PANEL AGAP 12.5 meq/L 10.0 - 06/28 MH 20.0 [facility] CHEM PANEL Magnesium 2.7 mg/dL 1.8 - 2.4 06/28 MH Lvl /2016 [facility] HEMATOLOGY Hgb 9.0 g/dL 14.0 - 06/28 MH 18.0 /2016 [facility] HEMATOLOGY Hct 27.7 % 42.0 - 06/28 MH 54.0 /2016 [facility] HEMATOLOGY MCV 87.2 fL 80.0 - 06/28 MH 94.0 [facility] HEMATOLOGY MCH 28.5 pg 27.0 - 06/28 31.0 [facility] MCHC 32.6 g/dL 32.0 - 06/28 36.0 [facility] HEMATOLOGY WBC 11.9 K/CMM 3.7 - 10.4 06/28 [facility] HEMATOLOGY RBC 3.17 M/CMM 4.70 - 06/28 MH 6.10 [facility] HEMATOLOGY RDW 14.6 % 11.5 - 06/28 MH 14.5 [facility] HEMATOLOGY Platelet 136 K/CMM 133 - 450 06/28 [facility] HEMATOLOGY MPV 8.6 fL 7.4 - 10.4 06/28 [facility] HEMATOLOGY Lymphocytes 1.5 K/CMM 1.0 - 5.5 06/28 MH # /2016 [facility] HEMATOLOGY Monocytes # 1.4 K/CMM 0.0 - 0.8 06/28 [facility] HEMATOLOGY Eosinophils 0.1 K/CMM 0.0 - 0.5 06/28 # /2016 [facility] HEMATOLOGY Lymphocytes 12.3 % 20.0 - 06/28 MH 40.0 [facility] HEMATOLOGY Monocytes 11.6 % 2.0 - 12.0 06/28 [facility] HEMATOLOGY Eosinophils 1.1 % 0.0 - 4.0 06/28 [facility] HEMATOLOGY Basophils 0.3 % 0.0 - 1.0 06/28 [facility] HEMATOLOGY Segs-Bands # 8.9 K/CMM 1.5 - 8.1 06/28 [facility] HEMATOLOGY Segs 74.7 % 45.0 - 06/28 75.0 /2016 [facility] CHEM PANEL Magnesium 2.4 mg/dL 1.8 - 2.4 / Lvl /2016 [facility] HEMATOLOGY WBC 18.6 K/CMM 3.7 - 10.4 06/27 /2016 [facility] HEMATOLOGY RDW 14.7 % 11.5 - 06/27 14.5 /2016 [facility] HEMATOLOGY MCHC 33.1 g/dL 32.0 - 06/27 36.0 /2016 [facility] HEMATOLOGY Hct 29.5 % 42.0 - 06/27 54.0 /2016 [facility] HEMATOLOGY MCH 28.1 pg 27.0 - 06/27 31.0 /2016 [facility] HEMATOLOGY MCV 84.7 fL 80.0 - 06/27 94.0 /2016 [facility] HEMATOLOGY MPV 9.7 fL 7.4 - 10.4 06/27 [facility] HEMATOLOGY Platelet 118 K/CMM 133 - 450 06/27 [facility] Hgb 9.8 g/dL 14.0 - 06/27 18.0 /2016 [facility] HEMATOLOGY RBC 3.48 M/CMM 4.70 - 06/27 6.10 /2016 [facility] HEMATOLOGY Lymphocytes 2.0 K/CMM 1.0 - 5.5 / MH # /2016 [facility] HEMATOLOGY Segs 76.1 % 45.0 - 06/27 75.0 [facility] HEMATOLOGY Eosinophils 0.1 % 0.0 - 4.0 06/27 [facility] HEMATOLOGY Monocytes 12.7 % 2.0 - 12.0 06/27 [facility] HEMATOLOGY Segs-Bands # 14.2 K/CMM 1.5 - 8.1 06/27 [facility] HEMATOLOGY Basophils 0.5 % 0.0 - 1.0 06/27 [facility] HEMATOLOGY Lymphocytes 10.6 % 20.0 - 06/27 40.0 /2016 [facility] HEMATOLOGY Basophils # 0.1 K/CMM 0.0 - 0.2 06/27 [facility] HEMATOLOGY Monocytes # 2.4 K/CMM 0.0 - 0.8 06/27 [facility] Chest Chest 1view Study: Chest 1view DX 06/27 - 1view DX DX - [facility] Clinical Indication: Tube placement/removal/reposition Read by: Kaleb Melissa MD Dictated Date/time: 06/27/16 08:13 Electronically Signed by: Kaleb Melissa MD 06/27/16 08:15 FINAL REPORT Comparison: Chest x-ray from 06/26/2016 FINDINGS: 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 Right internal jugular central line is stable. Dorena-Cristian cath eter has been removed. Cardiac silhouette is normal in size. Calcified AP window lymph node is noted. Lung volumes are diminished and bibasilar atelectasis is seen. No pleural effusion or pneumothorax is seen. The osseous structures are unremarkable. IMPRESSION: Interval removal of Dorena-Cristian catheter SL: [id number] CHEM PANEL Phosphorus 2.0 mg/dL 2.5 - 4.5 06/26 /2016 [facility] HEMATOLOGY Eosinophils 0.0 K/CMM 0.0 - 0.5 06/26 # /2016 [facility] HEMATOLOGY Basophils # 0.0 K/CMM 0.0 - 0.2 06/26 [facility] PARATHYROI Ca Ion WB 1.11 . - 06/26 D PROFILE mMol/L . [facility] PARATHYROI Ca Norm WB 1.11 1.05 - 06/26 D PROFILE mMol/L . [facility] SPECIAL Hgb A1C 6.4 % <=5.6 % 06/26 CHEMISTRY /2016 [facility] Chest Chest 1view Clinical Indication:65 years Male with Tube placement/ removal/reposition 06/26 - 1view DX - [facility] Comparison: Chest x-ray 06/25/2016 Read by: Beck Aggarwal MD Dictated Date/time: 06/26/16 08:45 FINDINGS: Electronically Signed by: Beck Aggarwal MD 06/26/16 08:46 FINAL REPORT Lines: Unchanged positions of right IJ central venous catheter, right IJ pulmonary arterial catheter, left chest tube, mediastinal drain The single frontal chest radiograph shows low lung volumes. Airspace opacities in the lower lobes unchanged No pleural effusion. No pneumothorax. Cardiac silhouette is stable, partially obscured. Pulmonary vasculature is normal. The trachea is midline. There are no acute osseous abnormalities noted. IMPRESSION: No significant change since prior chest x-ray. Opacities in the lung bases and perihilar regions are likely atelectasis. Low lung volumes. CHEM PANEL Phosphorus 1.6 mg/dL 2.5 - 4.5 06/25 [facility] HEMATOLOGY RBC Morph Normal 06/25 [facility] (06/25/16 2:28 AM) HEMATOLOGY Plt Morph Normal 06/25 [facility] (06/25/16 2:28 AM) PARATHYROI Ca Norm WB 1.06 1.05 - 06/25 D PROFILE mMol/L 04.20 [facility] PARATHYROI Ca Ion WB 1.09 1.05 - 06/25 D PROFILE mMol/L 04.20 [facility] Chest Chest 1view Chest 1view DX 06/25 - 1view DX DX /2016 - [facility] CLINICAL HISTORY:Tube placement/removal/reposition Read by: Brett Lombardo MD Dictated Date/time: 06/25/16 09:57 Electronically Signed by: Brett Lombardo MD 06/25/16 09:58 FINAL REPORT COMPARISON: 06/24/2016 FINDINGS/IMPRESSION: Limited AP portable study. Support Lines/Devices: Interval removal of ET tube. Various other support lines and tubes are stable in position. Lungs: Persistent bibasilar atelectasis. No large effusion is present on either side. Cardiomediastinum: Stable enlargement of cardiac silhouette. Poststernotomy changes. Bone and Soft Tissues: No significant abnormality is evident. Multiple EKG leads and other wires project over the patient's chest. SL: [id number] HEMATOLOGY POC 34.0 % 42.0 - 06/24 Hematocrit 54.0 [facility] HEMATOLOGY POC 11.6 g/dL 14.0 - 06/24 Hemoglobin 18.0 [facility] HEMATOLOGY POC Ion Ca 1.09 1.05 - 06/24 MH mMol/L . [facility] HEMATOLOGY POC 4.4 meq/L 3.5 - 5.1 06/24 Potassium /2016 [facility] HEMATOLOGY POC Sodium 143 meq/L 135 - 145 06/24 [facility] CHEM PANEL A/G Ratio 1.4 0.7 - 1.6 06/24 [facility] CHEM PANEL Globulin 2.1 g/dL 2.7 - 4.2 06/24 [facility] CHEM PANEL Bili 0.4 mg/dL 0.0 - 1.0 06/24 [facility] CHEM PANEL Bili Direct 0.2 mg/dL 0.0 - 0.3 06/24 [facility] CHEM PANEL Bili Total 0.6 mg/dL 0.2 - 1.3 06/24 [facility] CHEM PANEL Alk Phos 38 unit/L 39 - 136 06/24 [facility] CHEM PANEL AST 42 unit/L 0 - 37 06/24 [facility] CHEM PANEL ALT 51 unit/L 0 - 65 06/24 [facility] CHEM PANEL Albumin Lvl 2.9 g/dL 3.5 - 5.0 06/24 [facility] CHEM PANEL Total 5.0 g/dL 6.4 - 8.4 06/24 [facility] CHEM PANEL Phosphorus 2.3 mg/dL 2.5 - 4.5 06/24 [facility] HEMATOLOGY FSP <5 ug/ml <5 ug/ml 06/24 [facility] HEMATOLOGY Fibrinogen 206 mg/dL 230 - 510 06/24 Lvl [facility] HEMATOLOGY PTT 34.9 s 22.9 - 06/24 MH 35.8 [facility] HEMATOLOGY INR 1.27 0.85 - 06/24 1. [facility] HEMATOLOGY PT 16.2 s 12.0 - 06/24 14. [facility] PARATHYROI Ca Norm WB 1.09 1.05 - 06/24 D PROFILE mMol/L 1. [facility] PARATHYROI Ca Ion WB 1.10 1.05 - 06/24 D PROFILE mMol/L . [facility] HEMATOLOGY Fibrinogen 196 mg/dL 230 - 510 06/24 Lvl [facility] HEMATOLOGY PTT 32.8 s 22.9 - 06/24 35.8 [facility] HEMATOLOGY PT 16.6 s 12.0 - 06/24 14. [facility] HEMATOLOGY INR 1.32 0.85 - 06/24 1. [facility] Chest Chest 1view Patient Name: CHYNA RYAN 06/24 - 1view DX DX /2016 - [facility] : 1950; Age: 65 years y/o Male MR: [id number] Read by: Ted Hernandez MD Dictated Date/time: 06/24/16 18:17 Electronically Signed by: Ted Hernandez MD 06/24/16 18:19 FINAL REPORT * CHEST, portable, 1 view HISTORY: Status post median sternotomy, intubated. COMPARISON: 06/18/2016. This is the initial postoperative study. TECHNIQUE: A portable frontal radiograph of the chest was obtained. IMPRESSION: 1. The endotracheal tube is in good position with its tip 3.5 cm above the marcus. 2. New poststernotomy changes. There is a left chest tube and mediastinal drain. There is no pneumothorax. 3. Mild cardiomegaly. There is no overt failure. 4. Shallow degree of inspiration with moderate areas of atelectasis in the perihilar regions and left base. 5. There is a right IJ Dorena-Cristian catheter. The catheter tip is in the expected location of the pulmonary valve. The Dorena-Cristian catheter does not extend into either main pulmonary artery. 6. The tip of the right IJ central venous catheter is in the lower superior vena cava. 7. There are mild scattered degenerative changes involving the thoracic spine. The regional skeleton is otherwise unremarkable. SL: [facility] BLOOD BANK Antibody Negative 06/24 RESULTS Scrn [facility] (06/24/16 4:15 AM) BLOOD BANK ABO/Rh A POS 06/24 RESULTS /2016 [facility] BLOOD BANK Platelet Product available 06/24 RESULTS product /2016 [facility] (06/24/16 4:00 AM) BLOOD BANK FFP product Product available 06/24 RESULTS /2016 [facility] (06/24/16 4:00 AM) BLOOD BANK Cryo product Product available 06/24 RESULTS /2016 [facility] (06/24/16 4:00 AM) BLOOD BANK RBC product Product available 06/24 RESULTS /2016 [facility] (06/24/16 4:00 AM) HEMATOLOGY INR 1.05 0.85 - 06/22 MH 1. /2016 [facility] HEMATOLOGY PTT 37.0 s 22.9 - 06/22 35.8 /2016 [facility] HEMATOLOGY PT 13.9 s 12.0 - 06/22 14.7 /2016 [facility] BLOOD BANK ABO/Rh A POS 06/20 RESULTS /2016 [facility] BLOOD BANK Antibody Negative 06/20 RESULTS Scrn [facility] (06/20/16 5:18 AM) HEMATOLOGY Plt Morph Normal 06/20 /2016 [facility] (06/20/16 5:18 AM) HEMATOLOGY RBC Morph Normal 06/20 /2016 [facility] (06/20/16 5:18 AM) MOLECULAR HCV RNA 6.9 06/20 DIAGNOSTIC Log10 [iU]/mL /2016 [facility] MOLECULAR HCV RNA [id number] 06/20 DIAGNOSTIC VirLoad [iU]/mL /2016 [facility] BLOOD BANK FFP product Product available 06/20 RESULTS /2016 [facility] (06/20/16 5:00 AM) BLOOD BANK Cryo product Product available 06/20 RESULTS /2016 [facility] (06/20/16 5:00 AM) BLOOD BANK RBC product Product available 06/20 RESULTS /2016 [facility] (06/20/16 5:00 AM) BLOOD BANK Platelet Product available 06/20 RESULTS product /2016 [facility] (06/20/16 5:00 AM) BACTERIAL MRSA by PCR Negative 06/18 - SEROLOGY /2016 [facility] (06/18/16 5:33 AM) CHEM PANEL B/C Ratio 18 6 - 25 06/18 [facility] CHEM PANEL Globulin 3.9 g/dL 2.7 - 4.2 06/18 [facility] CHEM PANEL A/G Ratio 0.8 0.7 - 1.6 06/18 [facility] CHEM PANEL ALT 67 unit/L 0 - 65 06/18 [facility] CHEM PANEL AST 74 unit/L 0 - 37 06/18 [facility] CHEM PANEL Total 7.1 g/dL 6.4 - 8.4 06/18 Protein [facility] CHEM PANEL Albumin Lvl 3.2 g/dL 3.5 - 5.0 06/18 [facility] CHEM PANEL Alk Phos 58 unit/L 39 - 136 06/18 [facility] CHEM PANEL Bili Total 0.4 mg/dL 0.2 - 1.3 06/18 [facility] LIPIDS CHD Risk 4.04 4.00 - 06/18 7.30 [facility] LIPIDS VLDL 16 06/18 [facility] LIPIDS LDL 121 mg/dL <=99 mg/dL 06/18 (Calculated) [facility] LIPIDS HDL 45 mg/dL >=61 mg/dL 06/18 [facility] LIPIDS Trig 82 mg/dL <=149 06/18 mg/dL [facility] LIPIDS Chol 182 mg/dL <=199 06/18 mg/dL [facility] SPECIAL Hgb A1C 6.4 % <=5.6 % 06/18 CHEMISTRY [facility] URINE AND UA null 0.1 - 1.0 06/18 STOOL Urobilinogen [facility] URINE AND UA Sq Epi None Seen 06/18 [facility] URINE AND UA RBC null 0 - 2 06/18 [facility] URINE AND UA Bili Negative Negative 06/18 [facility] *NA* (06/18/16 5:33 AM) URINE AND UA Ketones Negative Negative 06/18 STOOL mg/dL mg/dL [facility] URINE AND UA Glucose Negative Negative 06/18 STOOL mg/dL mg/dL [facility] URINE AND UA WBC null 0 - 5 06/18 [facility] URINE AND UA Leuk Est Negative Negative 06/18 [facility] (06/18/16 5:33 AM) URINE AND UA Nitrite Negative Negative 06/18 [facility] (06/18/16 5:33 AM) URINE AND UA Blood Negative Negative 06/18 [facility] (06/18/16 5:33 AM) URINE AND UA Protein Negative Negative 06/18 [facility] mg/dL mg/dL [facility] URINE AND UA Color Light Yellow Yellow 06/18 [facility] *NA* (06/18/16 5:33 AM) URINE AND UA Turbidity Clear Clear 06/18 [facility] (06/18/16 5:33 AM) URINE AND UA pH 5.0 5.0 - 8.0 06/18 [facility] URINE AND UA Spec Grav 1.008 <=1.030 06/18 [facility] Chest 2 Chest 2 CHEST, 2 VIEWS 06/18 - views DX views - [facility] HISTORY: ; Respiratory distress; Read by: Vikash Joseph MD Dictated Date/time: 06/18/16 09:54 Electronically Signed by: Vikash Joseph MD 06/18/16 09:55 FINAL REPORT COMPARISON: June 15, 2016 FINDINGS: Lungs are underinflated with mild bilateral basal atelectasis/infiltrate, left greater than right. No pleural effusion or pneumothorax. Stable mediastinum. No acute osseous abnormality. SL: [id number] URINE AND UA Turbidity Clear Clear 06/18 [facility] (06/17/16 11:28 PM) URINE AND UA pH 6.0 5.0 - 8.0 06/18 [facility] URINE AND UA Color Light Yellow Yellow 06/18 [facility] *NA* (06/17/16 11:28 PM) URINE AND UA Spec Grav 1.010 <=1.030 06/18 STOOL [facility] URINE AND UA WBC 1 /HPF 0 - 5 06/18 STOOL [facility] URINE AND UA Bacteria Occasional None Seen 06/18 STOOL /HPF /HPF [facility] URINE AND UA Glucose Negative Negative 06/18 STOOL mg/dL mg/dL [facility] URINE AND UA Protein Negative Negative 06/18 STOOL mg/dL mg/dL [facility] URINE AND UA null 0.1 - 1.0 06/18 STOOL Urobilinogen /2016 [facility] URINE AND UA Sq Epi None Seen 06/18 STOOL [facility] URINE AND UA Leuk Est Negative Negative 06/18 STOOL [facility] (06/17/16 11:28 PM) URINE AND UA Nitrite Negative Negative 06/18 STOOL [facility] (06/17/16 11:28 PM) URINE AND UA Blood Negative Negative 06/18 STOOL [facility] (06/17/16 11:28 PM) URINE AND UA Bili Negative Negative 06/18 [facility] *NA* (06/17/16 11:28 PM) URINE AND UA Ketones Negative Negative 06/18 STOOL mg/dL mg/dL [facility] Abdomen Abdomen RUQ ULTRASOUND ABDOMEN RIGHT UPPER QUADRANT 06/17 RUQ US - [facility] HISTORY: Abnormal Lab tests- LFT; Read by: Vikash Joseph MD Dictated Date/time: 06/18/16 09:28 Electronically Signed by: Vikash Joseph MD 06/18/16 09:33 FINAL REPORT COMPARISON: None available. TECHNIQUE: Grayscale and limited color sonographic evaluation of the right upper quadrant was performed with standard technique. FINDINGS: LIVER: The visualized liver shows normal contour, size, and morphology without focal lesions. BILE DUCTS: The intrahepatic and extrahepatic bile ducts are not dilated with the common bile duct measuring 4 mm. GALLBLADDER: There are no gallstones, gallbladder sludge, pericholecystic fluid or wall thickening. PANCREAS: The pancreas body is normal, the head and tail are obscured by bowel gas. KIDNEY: The right kidney measures 9.4 x 4.7 x 5.5 cm. There is normal renal contour and morphology, with normal parenchymal echotexture. There is no hydronephrosis. INFERIOR VENA CAVA: Visualized portions appear normal. ASCITES: There is no right abdominal ascites. IMPRESSION: Normal study. SL: [id number] LIPIDS CHD Risk 4.26 4.00 - 06/16 MH 7.30 [facility] LIPIDS VLDL 22 06/16 [facility] LIPIDS LDL 118 mg/dL <=99 mg/dL 06/16 (Calculated) /2016 [facility] LIPIDS HDL 43 mg/dL >=61 mg/dL 06/16 [facility] LIPIDS Chol 183 mg/dL <=199 06/16 mg/dL /2016 [facility] LIPIDS Trig 112 mg/dL <=149 06/16 mg/dL /2017 [facility] CARDIAC Total CK 384 unit/L 12 - 191 06/16 ENZYMES /2017 [facility] CARDIAC Troponin-I 7.44 ng/mL 0.00 - 06/16 Result ENZYMES 0.40 /2017 Comment: [facility] Critical Result(s) called to Missael Alvarenga at 06/15/2016 20:33 by TW. Read back OK. CARDIAC CK MB Index 4.4 0.0 - 2.5 06/16 ENZYMES /2016 [facility] CARDIAC CK MB 17.0 ng/mL 0.5 - 3.6 06/16 ENZYMES /2017 [facility] CARDIAC CK MB Index 4.8 0.0 - 2.5 06/15 ENZYMES /2017 [facility] CARDIAC Total CK 412 unit/L 12 - 06/15 ENZYMES /2017 [facility] CARDIAC CK MB 19.8 ng/mL 0.5 - 3.6 06/15 ENZYMES /2017 [facility] CARDIAC Troponin-I 6.52 ng/mL 0.00 - 06/15 Result ENZYMES 0.40 /2017 Comment: [facility] Critical Result(s) called to Robert long at 06/15/2016 16:44 by TW. Read back OK. CHEM PANEL Globulin 3.7 g/dL 2.7 - 4.2 06/15 /2016 [facility] CHEM PANEL A/G Ratio 0.9 0.7 - 1.6 06/15 /2016 [facility] CHEM PANEL B/C Ratio 19 6 - 25 06/15 [facility] CHEM PANEL Bili Total 0.5 mg/dL 0.2 - 1.3 06/15 [facility] CHEM PANEL Albumin Lvl 3.3 g/dL 3.5 - 5.0 06/15 [facility] CHEM PANEL Total 7.0 g/dL 6.4 - 8.4 06/15 [facility] CHEM PANEL Alk Phos 68 unit/L 39 - 136 06/15 [facility] CHEM PANEL AST 51 unit/L 0 - 37 06/15 [facility] CHEM PANEL ALT 44 unit/L 0 - 65 06/15 [facility] DRUG U Cannab Scr Negative Negative 06/15 SCREEN /2016 [facility] *NA* (06/15/16 2:56 PM) DRUG U Phencyc Negative Negative 06/15 SCREEN Scr /2016 [facility] *NA* (06/15/16 2:56 PM) DRUG U Opiate Scr Negative Negative 06/15 SCREEN [facility] *NA* (06/15/16 2:56 PM) DRUG U Cocaine Negative Negative 06/15 SCREEN Scr [facility] *NA* (06/15/16 2:56 PM) DRUG U Benzodia Negative Negative 06/15 SCREEN Scr [facility] *NA* (06/15/16 2:56 PM) DRUG U Amph Scr Negative Negative 06/15 SCREEN [facility] *NA* (06/15/16 2:56 PM) DRUG U Elsy Scr Negative Negative 06/15 SCREEN [facility] *NA* (06/15/16 2:56 PM) DRUG UDS Note See Note 06/15 SCREEN [facility] (06/15/16 2:56 PM) IMMUNOLOGY Hep Bs Ag Negative Negative 06/15 [facility] *NA* (06/15/16 2:56 PM) IMMUNOLOGY Hep B Core Negative Negative 06/15 IgM /2016 [facility] *NA* (06/15/16 2:56 PM) IMMUNOLOGY Hep C Ab Positive 06/15 [facility] *ABN* (06/15/16 2:56 PM) IMMUNOLOGY Hep A IgM Negative Negative 06/15 [facility] *NA* (06/15/16 2:56 PM) SPECIAL Hgb A1C 6.6 % <=5.6 % 06/15 CHEMISTRY /2016 [facility] URINE AND UA pH 5.5 5.0 - 8.0 06/15 STOOL [facility] URINE AND UA Spec Grav 1.020 <=1.030 06/15 STOOL [facility] URINE AND UA Protein Negative Negative 06/15 STOOL /2016 [facility] (06/15/16 2:56 PM) URINE AND UA Turbidity Clear Clear 06/15 STOOL [facility] (06/15/16 2:56 PM) URINE AND UA Leuk Est Negative Negative 06/15 STOOL [facility] (06/15/16 2:56 PM) URINE AND Micro? Not Indicated 06/15 STOOL [facility] (06/15/16 2:56 PM) URINE AND UA Glucose Negative Negative 06/15 STOOL [facility] (06/15/16 2:56 PM) URINE AND UA Bili Negative Negative 06/15 STOOL [facility] *NA* (06/15/16 2:56 PM) URINE AND UA Ketones Negative Negative 06/15 STOOL [facility] *NA* (06/15/16 2:56 PM) URINE AND UA Blood Negative Negative 06/15 STOOL [facility] (06/15/16 2:56 PM) URINE AND UA Nitrite Negative Negative 06/15 STOOL [facility] (06/15/16 2:56 PM) URINE AND UA 0.2 EU/dL 0.1 - 1.0 06/15 STOOL Urobilinogen [facility] URINE AND UA Color Yellow Yellow 06/15 STOOL [facility] *NA* (06/15/16 2:56 PM) Chest 2 Chest 2 Patient Name: CHYNA RYAN 06/15 - views DX views DX /2016 - [facility] : 1950; Age: 65 years Male MR: [id number] Read by: Azeem Duffy MD Dictated Date/time: 06/16/16 07:17 Study: Chest 2 views DX Order Time: 06/15/2016 1:54 PM CDT Electronically Signed by: Azeem Duffy MD 06/16/16 07 :18 FINAL REPORT CLINICAL INDICATION: Abnormal chest sounds COMPARISON: None FINDINGS: Lines: None. Lungs: Interstitial opacities within the left lower lobe. No effusion or pneumothorax. Mediastinum: The cardiac silhouette is within normal limits of size. Midline trachea. Bones and soft tissues: No acute abnormalities. IMPRESSION: Findings suggest left lower lobe pneumonia. Recommend follow-up chest imaging to document resolution. SL: [id number] Vital Signs Vital Sign Value Date Comments Source Respitory Rate 20 06/30/2016 [facility] Systolic (mm Hg) 114 06/30/2016 [facility] Diastolic (mm Hg) 75 06/30/2016 [facility] Heart Rate 76 06/30/2016 [facility] Respitory Rate 20 06/30/2016 [facility] Systolic (mm Hg) 105 06/30/2016 [facility] Diastolic (mm Hg) 60 06/30/2016 [facility] Heart Rate 77 06/30/2016 [facility] Systolic (mm Hg) 108 06/30/2016 [facility] Diastolic (mm Hg) 68 06/30/2016 [facility] Heart Rate 70 06/30/2016 [facility] Respitory Rate 18 06/30/2016 [facility] Weight 111.384 06/29/2016 [facility] Weight 110.469 06/28/2016 [facility] Height 177.8 cm 06/25/2016 [facility] Height 177.8 cm 06/25/2016 [facility] Height 177.8 cm 06/24/2016 [facility] Temperature Oral (F) 97.6 F 06/24/2016 [facility] Weight 103.653 06/24/2016 [facility] Temperature Oral (F) 97.9 F 06/20/2016 [facility] BMI Calculated 32.56 06/15/2016 [facility] Encounters Location Location Encounter Encounter Reason Attending ADM DC Status Source Details Type Number For Provider Date Date Visit [facility] In[facility] [id number] Eugenia Benedict 06/15 07/01 [facility] Procedures Procedure Code Date Perfomer Comments Source Repair of knee [id number] 03/27/1973 [facility] collateral ligaments
[2018-02-12 17:05] LABS: Absolute Lymphocytes (CBC) 2.1 K/uL (0.7-4.9); Absolute Monocytes 1.1 K/uL (0.1-1.3); Absolute Neutrophil 4.6 K/uL (1.8-8.0); Basophils % 1.1 % (0-1.3); Eosinophils % 2.1 % (0-4.4); Hematocrit 40.7 % (39.6-49.0); Lymphocytes % 25.5 % (15.3-44.8); MCH 29.1 pg (27.0-35.0); MCV 86.5 fL (80-100); Monocytes % 13.5 % (3.3-12.3)
[2018-02-12 17:06] LABS: Protime INR 1.07
[2018-02-12 17:26] LABS: Albumin 3.9 g/dL (3.4-5.0); Bilirubin Direct 0.1 mg/dL (0-0.2); Bilirubin Total 0.3 mg/dL (0.2-1.0); Magnesium 2.1 mg/dL (1.8-2.4); Potassium 3.7 mmol/L (3.5-5.1); Troponin (Emerg Dept Use Only) 0.02 ng/mL (0.0-0.045)
--- NOTE | 2018-02-12 17:42 | RAD REPORT ---
EXAM DESCRIPTION: RAD - Chest Single View - 02/12/2018 5:34 pm CLINICAL HISTORY: DYSPNEA Chest pain. COMPARISON: Chest Pa And Lat (2 Views) dated 10/31/2017; Chest Pa And Lat (2 Views) dated 09/21/2017; C hest Pa And Lat (2 Views) dated 11/29/2016; Chest Single View dated 07/17/2016 FINDINGS: Portable technique limits examination quality. Mild elevation of the left hemidiaphragm is seen with subsegmental atelectasis in left lung base. The lungs are otherwise clear. The heart is normal in size. No displaced fractures.Sternotomy wires note d. IMPRESSION: No acute intrathoracic process suspected.
--- NOTE | 2018-02-12 20:10 | EDPHYS ---
Physician Documentation [facility] Name: Valerio Berg Age: 67 yrs Sex: Male : 1950 Arrival Date: 02/12/2018 Time: 15:48 Bed 23 Private MD: ED Physician Gerardo Do HPI: 02/12 20:05 This 67 yrs old Black Male presents to ER via Wheelchair with complaints of Cough. gs 20:05 Onset: The symptoms/episode began/occurred 1 month(s) ago. Severity of symptoms: At gs their worst the symptoms were moderate, in the emergency department the symptoms are unchanged. Modifying factors: the symptoms are aggravated by. Associated signs and symptoms: Pertinent negatives: chest pain, sore throat, vomiting. The patient has experienced similar episodes in the past, a few times. The patient has been recently seen by a physician: the patient's primary care provider, 1 week(s) ago, with similar presenting complaints, lab tests were done, but the patient's symptoms have persisted. 20:10 came to ed because was visiting someone and they noticed he had a bad cough, no cough gs appreciated at ed. Historical: - Allergies: 15:52 Betadine; sv - PSHx: 15:52 Heart Surgery; sv - Immunization history:: Flu vaccine is up to date. - Social history:: Smoking status: Patient/guardian denies using tobacco. - Ebola Screening: : No symptoms or risks identified at this time. ROS: 20:05 All other systems are negative. gs Exam: 20:05 Head/Face: Normocephalic, atraumatic. Eyes: Pupils equal round and reactive to light, gs extra-ocular motions intact. Lids and lashes normal. Conjunctiva and sclera are non-icteric and not injected. Cornea within normal limits. Periorbital areas with no swelling, redness, or edema. ENT: Nares patent. No nasal discharge, no septal abnormalities noted. Tympanic membranes are normal and external auditory canals are clear. Oropharynx with no redness, swelling, or masses, exudates, or evidence of obstruction, uvula midline. Mucous membranes moist. Neck: Trachea midline, no thyromegaly or masses palpated, and no cervical lymphadenopathy. Supple, full range of motion without nuchal rigidity, or vertebral point tenderness. No Meningismus. Chest/axilla: Normal chest wall appearance and motion. Nontender with no deformity. No lesions are appreciated. Cardiovascular: Regular rate and rhythm with a normal S1 and S2. No gallops, murmurs, or rubs. Normal PMI, no JVD. No pulse deficits. Respiratory: Lungs have equal breath sounds bilaterally, clear to auscultation and percussion. No rales, rhonchi or wheezes noted. No increased work of breathing, no retractions or nasal flaring. Abdomen/GI: Soft, non-tender, with normal bowel sounds. No distension or tympany. No guarding or rebound. No evidence of tenderness throughout. Back: No spinal tenderness. No costovertebral tenderness. Full range of motion. Skin: Warm, dry with normal turgor. Normal color with no rashes, no lesions, and no evidence of cellulitis. MS/ Extremity: Pulses equal, no cyanosis. Neurovascular intact. Full, normal range of motion. Neuro: Awake and alert, GCS 15, oriented to person, place, time, and situation. Cranial nerves II-XII grossly intact. Motor strength 5/5 in all extremities. Sensory grossly intact. Cerebellar exam normal. Normal gait. 20:05 Constitutional: The patient appears alert, awake. 20:05 ECG was reviewed by the Attending Physician. Vital Signs: 15:52 BP 139 / 75; Pulse 64; Resp 22; Temp 97.1; Pulse Ox 98% ; Weight 99.79 kg; Height 5 ft. sv 11 in. (180.34 cm); Pain 0/10; 16:55 BP 125 / 78; Pulse 66; Resp 18; Pulse Ox 97% on R/A; aj1 17:48 BP 129 / 84; Pulse 65; Resp 18; Pulse Ox 97% on R/A; aj1 18:27 BP 121 / 75; Pulse 66; Resp 18; Pulse Ox 99% on R/A; aj1 19:52 BP 156 / 88; Pulse 65; Resp 18; Pulse Ox 97% on R/A; Pain 0/10; mg2 15:52 Body Mass Index 30.68 (99.79 kg, 180.34 cm) sv MDM: 16:37 Patient medically screened. gs 20:05 Differential Diagnosis: Viral Syndrome Pneumonia Other chf. Data reviewed: vital signs, nurses notes. Counseling: I had a detailed discussion with the patient and/or guardian regarding: the historical points, exam findings, and any diagnostic results supporting the discharge/admit diagnosis, lab results, radiology results, the need for outpatient follow up. Response to treatment: the patient's symptoms have markedly improved after treatment, the patient's symptoms have resolved after treatment, and as a result, I will discharge patient. 02/12 16:37 Order name: Basic Metabolic Panel 02/12 16:37 Order name: CBC with Diff 02/12 16:37 Order name: LFT's 02/12 16:37 Order name: Magnesium 02/12 16:37 Order name: NT PRO-BNP 02/12 16:37 Order name: PT-INR 02/12 16:37 Order name: Troponin (emerg Dept Use Only) 02/12 17:07 Order name: CBC with Automated Diff; Complete Time: 19:56 EDMS 02/12 17:08 Order name: Protime (+INR); Complete Time: 19:56 EDMS 02/12 17:27 Order name: Basic Metabolic Panel; Complete Time: 19:56 EDMS 02/12 17:27 Order name: Liver (Hepatic) Function; Complete Time: 19:56 EDMS 02/12 17:27 Order name: Troponin (Emerg Dept Use Only); Complete Time: 19:56 EDMS 02/12 17:27 Order name: NT PRO-BNP; Complete Time: 19:56 EDMS 02/12 17:27 Order name: Magnesium; Complete Time: 19:56 EDMS 02/12 16:37 Order name: XRAY Chest (1 view) 02/12 16:37 Order name: EKG; Complete Time: 16:38 02/12 16:37 Order name: Cardiac monitoring; Complete Time: 16:59 02/12 16:37 Order name: EKG - Nurse/Tech; Complete Time: 16:59 02/12 16:37 Order name: IV Saline Lock; Complete Time: 16:59 02/12 16:37 Order name: Labs collected and sent; Complete Time: 16:59 02/12 16:37 Order name: O2 Per Protocol; Complete Time: 16:59 02/12 16:37 Order name: O2 Sat Monitoring; Complete Time: 16:59 02/12 17:42 Order name: RAD; Complete Time: 19:56 EDMS EC:05 Rate is 71 beats/min. Rhythm is regular. WI interval is normal. QRS interval is gs prolonged. T waves are Flattened. Clinical impression: NSR w/ Non-specific ST/T Changes. Interpreted by me. Administered Medications: No medications were administered Disposition: 02/12/18 20:09 Discharged to Home. Impression: Cough, Heart failure. - Condition is Stable. - Discharge Instructions: Heart Failure, Cough, Adult, [id number]. - Medication Reconciliation Form, Thank You Letter, Antibiotic Education, Prescription Opioid Use form. - Follow up: Private Physician; When: 1 - 2 days; Reason: Re-evaluation by your physician. Signatures: Dispatcher [employer] [facility] Milka Moore RN RN Gerardo Do MD MD David Garcia RN RN mg2 Corrections: (The following items were deleted from the chart) 20:18 20:09 02/12/2018 20:09 Discharged to Home. Impression: Cough; Heart failure. Condition mg2 is Stable. Forms are Medication Reconciliation Form, Thank You Letter, Antibiotic Education, Prescription Opioid Use. Follow up: Private Physician; When: 1 - 2 days; Reason: Re-evaluation by your physician. gs
--- NOTE | 2018-02-12 20:10 | ER ---
Nurse's Notes [facility] Name: Valerio Berg Age: 67 yrs Sex: Male : 1950 Arrival Date: 02/12/2018 Time: 15:48 Bed 23 Private MD: Diagnosis: Cough;Heart failure Presentation: 02/12 15:50 Presenting complaint: Patient states: dyspnea and runny nose for "a long time." Pt sv reports he has been seeing Dr Farr for his respiratory problems. c/o chest pain only when he coughs. Transition of care: patient was not received from another setting of care. Onset of symptoms is unknown. Care prior to arrival: None. 15:50 Method Of Arrival: Wheelchair sv 15:50 Acuity: ADRIÁN 3 sv 20:17 Risk Assessment: Do you want to hurt yourself or someone else? Patient reports no mg2 desire to harm self or others. Initial Sepsis Screen: Does the patient meet any 2 criteria? No. Patient's initial sepsis screen is negative. Does the patient have a suspected source of infection? No. Patient's initial sepsis screen is negative. Triage Assessment: 15:52 General: Appears in no apparent distress. uncomfortable, Behavior is calm, cooperative, sv appropriate for age. Pain: Denies pain. Neuro: Level of Consciousness is awake, alert, obeys commands, Oriented to person, place, time, situation, Moves all extremities. Full function Speech is normal. Respiratory: Reports shortness of breath on exertion pain with cough Airway is patent Respiratory effort is even, unlabored, Respiratory pattern is symmetrical, tachypnea the patient has mild shortness of breath. 20:17 Respiratory: Onset: The symptoms/episode began/occurred suddenly. mg2 Historical: - Allergies: 15:52 Betadine; sv - PSHx: 15:52 Heart Surgery; sv - Immunization history:: Flu vaccine is up to date. - Social history:: Smoking status: Patient/guardian denies using tobacco. - Ebola Screening: : No symptoms or risks identified at this time. Screenin:55 Abuse screen: Denies threats or abuse. Denies injuries from another. Nutritional aj1 screening: No deficits noted. Tuberculosis screening: No symptoms or risk factors identified. 20:17 Fall Risk IV access (20 points). mg2 Assessment: 16:55 General: Appears in no apparent distress. uncomfortable, Behavior is calm, cooperative, aj1 appropriate for age. Pain: Denies pain. Neuro: Level of Consciousness is awake, alert, obeys commands. Cardiovascular: Reports chest pain, when he coughs or deep breathes Heart tones S1 S2 present Patient's skin is warm and dry. Rhythm is sinus rhythm. Respiratory: Reports shortness of breath on exertion cough that is hacking, persistent Airway is patent Breath sounds are clear bilaterally. GI: No signs and/or symptoms were reported involving the gastrointestinal system. : No signs and/or symptoms were reported regarding the genitourinary system. EENT: No signs and/or symptoms were reported regarding the EENT system. Derm: No signs and/or symptoms reported regarding the dermatologic system. Skin is pink, warm \\T\\ dry. normal. Musculoskeletal: No signs and/or symptoms reported regarding the musculoskeletal system. Circulation, motion, and sensation intact. 17:48 Reassessment: Patient appears in no apparent distress at this time. No changes from aj1 previously documented assessment. Patient and/or family updated on plan of care and expected duration. Pain level reassessed. Patient is alert, oriented x 3, equal unlabored respirations, skin warm/dry/pink. Respiratory: Airway is patent Respiratory effort is even, unlabored, Respiratory pattern is regular, symmetrical. 18:27 Reassessment: Patient appears in no apparent distress at this time. No changes from aj1 previously documented assessment. Patient and/or family updated on plan of care and expected duration. Pain level reassessed. Patient is alert, oriented x 3, equal unlabored respirations, skin warm/dry/pink. 19:52 Reassessment: Patient appears in no apparent distress at this time. Patient and/or mg2 family updated on plan of care and expected duration. Pain level reassessed. Patient is alert, oriented x 3, equal unlabored respirations, skin warm/dry/pink. Vital Signs: 15:52 BP 139 / 75; Pulse 64; Resp 22; Temp 97.1; Pulse Ox 98% ; Weight 99.79 kg; Height 5 ft. sv 11 in. (180.34 cm); Pain 0/10; 16:55 BP 125 / 78; Pulse 66; Resp 18; Pulse Ox 97% on R/A; aj1 17:48 BP 129 / 84; Pulse 65; Resp 18; Pulse Ox 97% on R/A; aj1 18:27 BP 121 / 75; Pulse 66; Resp 18; Pulse Ox 99% on R/A; aj1 19:52 BP 156 / 88; Pulse 65; Resp 18; Pulse Ox 97% on R/A; Pain 0/10; mg2 15:52 Body Mass Index 30.68 (99.79 kg, 180.34 cm) ED Course: 15:48 Patient arrived in ED. mr 15:51 Triage completed. sv 15:52 Arm band placed on. 16:08 Gerardo Do MD is Attending Physician. 16:42 Bailey Long, APURVA is Primary Nurse. aj1 16:55 Report received from APURVA Hernandez. aj1 16:55 Patient has correct armband on for positive identification. Bed in low position. Call aj1 light in reach. Side rails up X 1. resident surgeon on. Pulse ox on. NIBP on. 16:55 No provider procedures requiring assistance completed. aj1 16:57 EKG done, by er tech. reviewed by Gerardo Do MD. sm3 20:16 IV discontinued, intact, bleeding controlled, No redness/swelling at site. Pressure mg2 dressing applied. Administered Medications: No medications were administered Outcome: 20:09 Discharge ordered by . 20:16 Discharged to home ambulatory. mg2 20:16 Condition: stable 20:16 Discharge instructions given to patient, Instructed on discharge instructions, follow up and referral plans. Demonstrated understanding of instructions, follow-up care. 20:18 Patient left the ED. mg2 Signatures: Bailey Long RN RN [facility] Milka Moore RN RN ChoudharyDominga Gerardo Do MD MD David Garcia RN RN [facility] Greta Oliver sm3 Corrections: (The following items were deleted from the chart) 15:52 15:50 Presenting complaint: Patient states: dyspnea and runny nose for "a long time." Pt reports he has been seeing Dr Farr for his respiratory problems. sv
--- NOTE | 2018-02-12 22:04 | EKG ---
Test Date: 2018-02-12 Test Time: 16:47:23 Staff Radiologist: JENNIFER MEASUREMENT RESULTS: Intervals: Rate: 71 [place]: 172 QRSD: 152 QT: 426 QTc: 462 [place]: P: 44 [place]: 172 QRS: -51 T: 87 INTERPRETIVE STATEMENTS: Sinus rhythm with premature supraventricular complexes Left axis deviation Right bundle branch block Possible Anterolateral infarct, age undetermined Abnormal ECG Compared to ECG 07/17/2016 20:22:37 Atrial premature complex(es) now present Myocardial infarct finding still present Electronically Signed On 02-12-18 22:03:53 SERVICE STATION HELPER by Darci Hernandez
== END 2018-02-12 20:18 | disposition home or self-care (01) ==
LOC: ER 15:46
DX: I50.9 Heart failure, unspecified (principal); R05 Cough; I45.10 Unspecified right bundle-branch block; I49.3 Ventricular premature depolarization; R94.31 Abnormal electrocardiogram [ECG] [EKG]
CPT/HCPCS: 36415; 71045; 80048; 80076; 83735; 83880; 84484; 85025; 85610; 93005; 99284

== ENCOUNTER 2018-03-26 09:59 | Emergency (ER) | payer OTHER ==
--- OUTSIDE RECORDS SUMMARY | 2018-03-26 10:04 | XMS REPORT | Continuity of Care Document ---
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 Problem 07/03/2016 [facility] 13 CHEST PAIN, Active [facility] UNSPECIFIED Medications Medication Details Route Status Patient Ordering Order Source Instructions Provider Date lisinopril 2.5 2.5 mg=1 tab, PO, Active mg oral tablet Daily, # 30 tab, 2016 [facility] 0 Refill(s) AMIODarone 200 200 mg=1 tab, PO, Active mg oral tablet BID, please start 2016 [facility] this regimen after 1 week of 400 mg PO BID for 1 week, # 60 tab, 0 Refill(s) Acetaminophen 2 tab, PO, Q6H, Active 300 MG / PRN Pain Score 2016 [facility] Codeine 4-6, X 5 day, # Phosphate 30 MG 40 tab, 0 Oral Tablet Refill(s) [Tylenol with Codeine #3] 200 ACTUAT 2 puff, Active Albuterol 0.09 INHALATION, QID, 2016 [facility] MG/ACTUAT PRN for wheezing, Metered Dose # 25 gm, 0 Inhaler Refill(s) [Proventil] Advair Diskus 1 puff, Active 250 mcg-50 mcg INHALATION, BID, 2016 [facility] inhalation # 60 puff, 0 powder Refill(s) torsemide 10 mg 10 mg=1 tab, PO, Active oral tablet Daily, # 30 tab, 2016 [facility] 0 Refill(s) metoprolol 25 25 mg=1 tab, PO, Active mg oral tablet, Daily, # 30 tab, 2016 [facility] extended 0 Refill(s) release clopidogrel 75 75 mg=1 tab, PO, Active mg oral tablet Daily, # 30 tab, 2016 [facility] 0 Refill(s) atorvastatin 40 40 mg=1 tab, PO, Active mg oral tablet Bedtime, # 30 2016 [facility] tab, 0 Refill(s) aspirin 81 mg 81 mg=1 tab, PO, Active tablet, enteric Daily, # 100 tab, 2016 [facility] coated 0 Refill(s) 12 HR 600 mg=1 tab, PO, Active Guaifenesin 600 Q12H, PRN 2017 [facility] Extended Congestion, X 7 Release Tablet day, # 14 tab, 0 [Mucinex] Refill(s) Amiodarone 400 mg, 2 tab, Inactive Route: PO, Drug 2016 [facility] form: TAB, BID, Dosing Weight 111.384, kg, Priority: NOW, Start date: 06/30/16 7:15:00 CDT, Stop date: 07/14/16 17:00:00 CDTNotes: (Same as: Cordarone) torsemide 10 mg, 1 tab, No Longer Route: PO, Drug Active 2016 [facility] form: TAB, Daily, Dosing Weight 111.384, kg, Start date: 06/29/16 9:00:00 CDT, Duration: 30 day, Stop date: 07/28/16 9:00:00 CDTNotes: (Same As: Demadex) Amiodarone 200 mg, 1 tab, No Longer Route: PO, Drug Active 2016 [facility] form: TAB, TID, Dosing Weight 110.469, kg, Priority: NOW, Start date: 06/28/16 9:06:00 CDT, Duration: 30 day, Stop date: 07/28/16 9:00:00 CDTNotes: (Same as: Cordarone) metoprolol 25 mg, 1 tab, No Longer extended Route: PO, Drug Active 2016 [facility] release form: ERTAB, Daily, Start date: 06/28/16 9:00:00 CDT, Duration: 30 day, Stop date: 07/27/16 9:00:00 CDTNotes: (Same as: Toprol XL) Do Not Crush atorvastatin 40 mg, 1 tab, No Longer Route: PO, Drug Active 2016 [facility] form: TAB, Bedtime, Dosing Weight 103.653, kg, Start date: 06/27/16 21:00:00 CDT, Duration: 30 day, Stop date: 07/26/16 21:00:00 CDTNotes: (Same as: Lipitor) chlorhexidine 1 pkt, Route: No Longer gluconate 40 BATHE, Q-M-W-F, Active 2016 [facility] MG/ML Medicated Drug form: SOLN, Liquid Soap Start date: 06/27/16 9:00:00 CDT, Duration: 30 day, Stop date: 07/25/16 9:00:00 CDTNotes: (Same As: Daniel[place]wesley) Glucagon 1 mg, Route: IM, No Longer Drug form: Active 2016 [facility] PDR/INJ, PRN, Dosing Weight 103.653, kg, PRN Blood Glucose Results, Start date: 06/26/16 10:21:00 CDT, Duration: 30 day, Stop date: 07/26/16 10:20:00 CDT Dextrose 50% 25 gm, 50 mL, No Longer Syringe Route: IVP, Drug Active 2016 [facility] Form: INJ, Dosing Weight 103.653, kg, PRN, PRN Blood Glucose Results, Start date: 06/26/16 10:21:00 CDT, Duration: 30 day, Stop date: 07/26/16 10:20:00 CDT Insulin, 8 unit, 0.08 mL, No Longer Aspart, Human Route: SUB-Q, Active 2016 [facility] Drug form: SOLN, TID-Before Meals, Dosing Weight [...] 2 mL, Inactive Route: IVP, Drug 2016 [facility] form: INJ, ONCE, Dosing Weight 103.653, kg, Priority: NOW, Start date: 06/26/16 7:30:00 CDT, Stop date: 06/26/16 7:30:00 CDTNotes: (Same as: Lasix) albumin human 12.5 gm, 250 mL, Inactive 5% intravenous 250 ml/hr, Route: 2016 [facility] solution IV, Drug Form: INJ, Dosing Weight 103.653, kg, ONCE, Start date: 06/26/16 7:30:00 CDT, Stop date: 06/26/16 7:30:00 CDTNotes: LOT#: Mfg: ___ WASTE: F/P - Red; E -Red (Same as: Albuminar) "blood product derivative" glucagon 1 mg, Route: INJ, No Longer Drug form: Active 2016 [facility] PDR/INJ, PRN, PRN Blood Glucose Results, Start date: 06/25/16 22:17:00 CDT, Duration: 30 day, Stop date: 07/25/16 22:16:00 CDT Dextrose 50% in 50 mL, Route: No Longer Water IV IVP, Start date: Active 2016 [facility] 06/25/16 22:17:00 CDT, Duration: 30 day, Stop date: 07/25/16 22:16:00 CDT, PRN Blood Glucose Results insulin aspart 10 unit, 0.1 mL, No Longer Route: SUB-Q, Active 2016 [facility] Drug form: SOLN, Sliding Scale, PRN Blood [...] No Longer Route: PO, Drug Active 2016 [facility] form: TAB, Bedtime, Dosing Weight 103.653, kg, Start date: 06/25/16 21:00:00 CDT, Duration: 30 day, Stop date: 07/24/16 21:00:00 CDTNotes: (Same As: Lipitor) Lovenox 40 mg, 0.4 mL, No Longer Route: SUB-Q, Active 2016 [facility] Drug form: INJ, [id number], Dosing Weight 103.653, kg, Start date: 06/25/16 20:00:00 CDT, Duration: 30 day, Stop date: 07/24/16 20:00:00 CDTNotes: (Same as: Lovenox) Dilaudid 0.5 mg, 0.5 mL, Inactive Route: IVP, Drug 2016 [facility] form: INJ, ONCE, Dosing Weight 103.653, kg, Priority: STAT, Start date: 06/25/16 18:54:00 CDT, Stop date: 06/25/16 18:54:00 CDT pantoprazole 40 mg, 1 tab, Inactive Route: PO, Drug 2016 [facility] form: ECTAB, Daily, Dosing Weight 103.653, kg, Start date: 06/25/16 9:00:00 CDT, Duration: 30 day, Stop date: 07/24/16 9:00:00 CDTNotes: Tablet should not be chewed or crushed. (Same as: Protonix) Mupirocin 0.02 1 appl, Route: No Longer MG/MG Topical NASAL, BID, Drug Active 2016 [facility] Ointment form: OINT, Start date: 06/25/16 9:00:00 CDT, Duration: 5 day, Stop date: 06/29/16 17:00:00 CDT clopidogrel 75 mg, 1 tab, No Longer Route: PO, Drug Active 2016 [facility] form: TAB, Daily, Dosing Weight 102.926, kg, Start date: 06/25/16 9:00:00 CDT, Duration: 30 day, Stop date: 07/24/16 9:00:00 CDTNotes: (Same As: Plavix) Aspirin 325 MG 325 mg, Route: No Longer Enteric Coated PO, Drug form: Active 2016 [facility] Tablet ECTAB, Daily, Dosing Weight 102.926, kg, Start date: 06/25/16 9:00:00 CDT, Duration: 30 day, Stop date: 07/24/16 9:00:00 CDT heparin 5,000 unit, 1 mL, Inactive Route: SUB-Q, 2016 [facility] Drug form: INJ, Q8H, Dosing Weight 103.653, kg, Start date: 06/25/16 8:00:00 CDT, Duration: 30 day, Stop date: 07/25/16 0:00:00 CDTNotes: porcine heparin vancomycin 1.5 gm, 250 mL, Inactive Route: IVPB, Drug 2016 [facility] form: INJ, [id number], Start date: 06/25/16 1:30:00 CDT, Duration: 2 doses or times, Stop date: 06/25/16 13:30:00 CDTNotes: TIME CRITICAL MEDICATION Same as: Vancocin-NS (premixed) Infusion rate 2001 mg: infuse over 2.5 hours cefuroxime + 1.5 gm, Route: Inactive sodium chloride IVPB, ABXQ8H, 2016 [facility] 0.9% INJ 100 mL Dosing Weight 103.653, kg, Start date: 06/25/16 1:00:00 CDT, Duration: 3 doses or times, Stop date: 06/25/16 17:00:00 CDTNotes: (Same As: Kefurox, Zinacef) MEDICATION WASTE Product Size: 1500 mg Product Wasted: ___ mg Vancomycin 1,554.795 mg, Inactive Route: IVPB, Drug 2016 [facility] form: INJ, Q12H, Dosing Weight 103.653, kg, Time Critical Medication, Start date: 06/24/16 21:00:00 CDT, Duration: 2 doses or times, Stop date: 06/25/16 9:00:00 CDT chlorhexidine 15 ml, Route: No Longer gluconate 1.2 S&SPIT, Q12H, Active 2016 [facility] MG/ML Mouthwash Drug form: LIQ, Start date: 06/24/16 21:00:00 CDT, Duration: 2 week, Stop date: 07/08/16 9:00:00 CDTNotes: (Same As: Peridex) Aspirin 325 MG 325 mg, 1 tab, No Longer Oral Tablet Route: NG, Drug Active 2016 [facility] form: TAB, Daily, Dosing Weight 102.926, kg, Start date: 06/24/16 21:00:00 CDT, Duration: 30 day, Stop date: 07/24/16 9:00:00 CDTNotes: Take with food. EPINEPHrine 4 246 mL, Rate: No Longer mg + sodium Titrate, Route: Active 2016 [facility] chloride 0.9% IV, Dosing Weight INJ 246 mL 103.653 kg, Total Volume: 250, Start date: 06/24/16 18:38:00 CDT, Duration: 30 day, Stop date: 07/24/16 18:37:00 CDTNotes: (Same as: Adrenalin) Suremed - Injectable drug used as inhalation treatment. MEDICATION WASTE Product Size: 1 mg Product Wasted: ___ mg insulin aspart 14 unit, 0.14 mL, No Longer Route: SUB-Q, Active 2016 [facility] Drug form: SOLN, Sliding Scale, PRN Abnormal [...] mL, No Longer Route: SUB-Q, Active 2016 [facility] Drug form: SOLN, Sliding Scale, PRN Abnormal [...] Longer unit-NS 100mL Rate: Titrate, Active 2016 [facility] 100 unit Dosing Weight 103.653, kg, Route: IV, Total Volume: 100, Start Date: 06/24/16 18:35:00 CDT, Duration: 30 day, Stop date: 07/24/16 18:34:00 CDT, Replace Every: 24 hrNotes: Final Concentration 1unit/1ml WASTE: F/P - Black; E - Municipal Trash Bin insulin reg 100 100 unit, 100 mL, Inactive unit-NS 100mL Rate: Titrate, 2016 [facility] 100 unit Dosing Weight 103.653, kg, Route: IV, Total Volume: 100, Start Date: 06/24/16 18:34:00 CDT, Duration: 30 day, Stop date: 07/24/16 18:33:00 CDT, Replace Every: 24 hrNotes: Final Concentration 1unit/1ml WASTE: F/P - Black; E - Municipal Trash Bin albuterol 2.49 mg, 3 mL, No Longer Route: NEB, Drug Active 2016 [facility] form: SOLN, PRN, PRN Respiratory Protocol, Start date: 06/24/16 18:16:00 CDT, Stop date: 07/24/16 18:15:00 CDTNotes: SEE RT DOCUMENTATION (Same as: Proventil) Fentanyl 600 microgram, 30 No Longer mL, Route: IV, Active 2016 [facility] MORTAR MIXER Dose: 10 mcg, MORTAR MIXER Lockout: 10 minutes, Continuous Basal Rate: 0 mg, 4 Hour Limit (In MCG): 240, Drug Form: INJ, Continuous, Start date: 06/24/16 18:00:00 CDT, Duration: 30 day, Stop date: 07/24/16 17:59:00 CDTNotes: Concentration is 20 micrograms/ml metoprolol 12.5 mg, 0.5 tab, No Longer tartrate Route: PO, Drug Active 2016 [facility] form: TAB, Q6H, Dosing Weight 102.926, kg, Start date: 06/24/16 18:00:00 CDT, Duration: 30 day, Stop date: 07/24/16 12:00:00 CDTNotes: (Same as: Lopressor) Cefuroxime 1.5 gm, Route: Inactive IVPB, ABXQ8H, 2016 [facility] Dosing Weight 103.653, kg, Start date: 06/24/16 18:00:00 CDT, Duration: 3 doses or times, Stop date: 06/25/16 10:00:00 CDTNotes: (Same As: Kefurox, Zinacef) MEDICATION WASTE Product Size: 1500 mg Product Wasted: ___ mg PHOS-NaK 2 pkt, Route: PO, No Longer Drug Form: Active 2016 [facility] PDR/REC, Dosing Weight 103.653, kg, PRN, PRN Abnormal Lab Result, FOR ICU USE ONLY, Start date: 06/24/16 17:44:00 CDT, Duration: 30 day, Stop date: 07/24/16 17:43:00 CDTNotes: (Same as: Phos-NaK) Each 1.5 gm pkt has 250mg phosphorous. Mix w/2.5oz water and stir. potassium 45 mmol, 15 mL, No Longer phosphate + Route: IVPB, PRN, Active 2016 [facility] sodium chloride Dosing Weight 0.9% INJ 250 mL 103.653, kg, PRN Abnormal Lab Result, Start date: 06/24/16 17:44:00 CDT, Duration: 30 day, Stop date: 07/24/16 17:43:00 CDT, FOR ICU USE ONLYNotes: (Same as: K Phosphate.) 1 mMol phoshate has 1.47 mEq potassium Infuse over 4 hours Calcium 1 gm, 50 mL, No Longer Gluconate Route: IVPB, Drug Active 2016 [facility] form: INJ, PRN, Dosing Weight 103.653, kg, PRN Abnormal Lab Result, Start date: 06/24/16 17:44:00 CDT, Duration: 30 day, Stop date: 07/24/16 17:43:00 CDT, FOR ICU USE ONLYNotes: WASTE: F/P - Sink; E - Municipal Trash Bin Magnesium Oxide 800 mg, 2 tab, No Longer Route: PO, Drug Active 2016 [facility] form: TAB, PRN, Dosing Weight 103.653, kg, PRN Abnormal Lab Result, FOR ICU USE ONLY, Start date: 06/24/16 17:44:00 CDT, Duration: 30 day, Stop date: 07/24/16 17:43:00 CDTNotes: (Same as: Mag-Ox 400) Magnesium oxide 583ye=432ol elemental magnesium Dose=____mg magnesium oxide (___mg elemental magnesium) Magnesium 2 gm, 50 mL, No Longer Sulfate Route: IVPB, Drug Active 2016 [facility] form: INJ, PRN, Dosing Weight 103.653, kg, PRN Abnormal Lab Result, Start date: 06/24/16 17:44:00 CDT, Duration: 30 day, Stop date: 07/24/16 17:43:00 CDT, FOR ICU USE ONLYNotes: WASTE: F/P - Sink; E - Municipal Trash Bin potassium 20 mEq, 15 mL, No Longer chloride Route: NJ, Drug Active 2016 [facility] form: LIQ, PRN, Dosing Weight 103.653, kg, PRN Abnormal Lab Result, Start date: 06/24/16 17:44:00 CDT, Duration: 30 day, Stop date: 07/24/16 17:43:00 CDT, FOR ICU USE ONLYNotes: (Same as: Potassium Chloride) Calcium 1,000 mg, 2 tab, No Longer Carbonate 500 Route: CHEW, Drug Active 2016 [facility] Chewable form: CHEWTAB, Tablet PRN, Dosing Weight 103.653, kg, PRN Abnormal Lab Result, FOR ICU USE ONLY, Start date: 06/24/16 17:44:00 CDT, Duration: 30 day, Stop date: 07/24/16 17:43:00 CDTNotes: (Same As: Tums) Calcium Carbonate 500 wd=628 mg elemental calcium Dose= mg calcium carbonate ( mg elemental calcium) Insulin, 3 unit, 0.03 mL, Inactive Aspart, Human Route: SUB-Q, 2016 [facility] Drug form: SOLN, TID-Before Meals, Dosing Weight [...] phosphate + Route: IVPB, PRN, Active 2016 [facility] sodium chloride Dosing Weight 0.9% INJ 250 mL 103.653, kg, PRN Abnormal Lab Result, Start date: 06/24/16 17:44:00 CDT, Duration: 30 day, Stop date: 07/24/16 17:43:00 CDT, FOR ICU USE ONLY potassium 15 mmol, 250 mL, No Longer phosphate Route: IVPB, Drug Active 2016 [facility] form: INJ, PRN, Dosing Weight 103.653, kg, PRN Abnormal Lab Result, Start date: 06/24/16 17:44:00 CDT, Duration: 30 day, Stop date: 07/24/16 17:43:00 CDT, FOR ICU USE ONLYNotes: (Same as: K Phosphate) sodium 15 mmol, 250 mL, No Longer phosphate Route: IVPB, Drug Active 2016 [facility] form: INJ, PRN, Dosing Weight 103.653, kg, PRN Abnormal Lab Result, Start date: 06/24/16 17:44:00 CDT, Duration: 30 day, Stop date: 07/24/16 17:43:00 CDT, FOR ICU USE ONLY Naloxone 0.04 mg, 0.1 mL, No Longer Route: IVP, Drug Active 2016 [facility] form: INJ, Q2MIN, Dosing Weight 103.653, kg, PRN Narcotic Reversal, Start date: 06/24/16 17:44:00 CDT, Duration: 30 day, Stop date: 07/24/16 17:43:00 CDTNotes: Same as Narcan Saline Flush 10 ml, Route: No Longer 0.9% IVP, Drug Form: Active 2016 [facility] INJ, Dosing Weight 103.653, kg, PRN, PRN Line Flush, Start date: 06/24/16 17:44:00 CDT, Duration: 30 day, Stop date: 07/24/16 17:43:00 CDTNotes: (Same as: BD Posiflush) Dulcolax 10 mg, 1 supp, No Longer Laxative Route: AZ, Drug Active 2016 [facility] form: SUPP, Daily, Dosing Weight 102.926, kg, PRN Constipation, Start date: 06/24/16 17:44:00 CDT, Duration: 30 day, Stop date: 07/24/16 17:43:00 CDTNotes: (Same As: Dulcolax, Bisco-Lax) Lactulose 667 20 gm, 30 mL, No Longer MG/ML Oral Route: PO, Drug Active 2016 [facility] Solution form: SYRP, Daily, Dosing Weight 102.926, kg, PRN as needed for constipation, Start date: 06/24/16 17:44:00 CDT, Duration: 30 day, Stop date: 07/24/16 17:43:00 CDTNotes: (Same as:Chronulac) albumin human 12.5 gm, 250 mL, No Longer 5% intravenous 500 ml/hr, Route: Active 2016 [facility] solution IVPB, Drug Form: INJ, Dosing Weight 102.926, kg, ONCE, PRN Hypotension, Start date: 06/24/16 17:44:00 CDTNotes: LOT#: Mfg: ___ WASTE: F/P - Red; E -Red (Same as: Albuminar) "blood product derivative" Acetaminophen 1 tab, Route: PO, No Longer 300 MG / Drug Form: TAB, Active 2016 [facility] Codeine Dosing Weight Phosphate 30 MG 102.926, kg, Q6H, Oral Tablet PRN Pain Score [Tylenol with 1-3, Start date: Codeine #3] 06/24/16 17:44:00 CDT, Duration: 30 day, Stop date: 07/24/16 17:43:00 CDTNotes: Do not exceed 4gm/day of acetaminophen. (Same as: Tylenol with Codeine # 3) Zofran 4 mg, 2 mL, No Longer Route: IVP, Drug Active 2016 [facility] form: INJ, Q8H, Dosing Weight 102.926, kg, PRN Nausea, Start date: 06/24/16 17:44:00 CDT, Duration: 30 day, Stop date: 07/24/16 17:43:00 CDTNotes: (Same as: Zofran) MEDICATION WASTE Product Size: 4 mg Product Wasted: ___ mg Xopenex 1.25 mg, Route: Inactive NEB, PRN, Dosing 2016 [facility] Weight 102.926, kg, PRN Respiratory Protocol, Start date: 06/24/16 17:44:00 CDT, Duration: 30 day, Stop date: 07/24/16 17:43:00 CDT Morphine 8 mg, 2 mL, No Longer Route: IM, Drug Active 2016 [facility] form: INJ, Q3H, Dosing Weight 102.926, kg, PRN Pain Score 7-10, Start date: 06/24/16 17:44:00 CDT, Duration: 30 day, Stop date: 07/24/16 17:43:00 CDTNotes: (Same as:MORPhine Sulfate) Albuterol 0.833 3 ml, Route: NEB, No Longer MG/ML / Drug Form: SOLN, Active 2016 [facility] Ipratropium Dosing Weight [place] 0.167 103.653, kg, PRN, MG/ML Inhalant PRN Respiratory Solution Protocol, Start date: 06/24/16 17:44:00 CDT, Duration: 30 day, Stop date: 07/24/16 17:43:00 CDTNotes: (Same as: Duoneb) Glucagon 1 mg, Route: IM, No Longer Drug form: Active 2016 [facility] PDR/INJ, PRN, Dosing Weight 103.653, kg, PRN Blood Glucose Results, Start date: 06/24/16 17:44:00 CDT, Duration: 30 day, Stop date: 07/24/16 17:43:00 CDT Nitroglycerin 0.4 mg, 1 tab, No Longer Route: SL, Drug Active 2016 [facility] form: TAB, Q5Min, Dosing Weight 103.653, kg, PRN Chest Pain, Start date: 06/24/16 17:44:00 CDT, Duration: 3 doses or times, Stop date: Limited # of timesNotes: (Same as:Nitroquick, Nitrostat) "Do Not Crush" Sublingual tablet Docusate 100 mg, 1 cap, No Longer Route: PO, Drug Active 2016 [facility] form: CAP, BID, Dosing Weight 103.653, kg, PRN Constipation, Start date: 06/24/16 17:44:00 CDT, Duration: 30 day, Stop date: 07/24/16 17:43:00 CDTNotes: (Same as: Colace) (Do Not Crush) Ondansetron 4 mg, 2 mL, Inactive Route: IVP, Drug 2016 [facility] form: INJ, Q8H, Dosing Weight 103.653, kg, PRN Nausea & Vomiting, Start date: 06/24/16 17:44:00 CDT, Duration: 30 day, Stop date: 07/24/16 17:43:00 CDTNotes: (Same as: Zofran) MEDICATION WASTE Product Size: 4 mg Product Wasted: ___ mg Dextrose 50% 25 gm, 50 mL, No Longer Syringe Route: IVP, Drug Active 2016 [facility] Form: INJ, Dosing Weight 103.653, kg, PRN, PRN Blood Glucose Results, Start date: 06/24/16 17:44:00 CDT, Duration: 30 day, Stop date: 07/24/16 17:43:00 CDT Acetaminophen 650 mg, 2 tab, No Longer Route: PO, Drug Active 2016 [facility] form: TAB, Q4H, Dosing Weight 103.653, kg, PRN Pain 1-3/Temp > 100.4 F, Start date: 06/24/16 17:44:00 CDT, Duration: 30 day, Stop date: 07/24/16 17:43:00 CDTNotes: Do not exceed 4 gm/day. (Same as: Tylenol) vasopressin Route: IV, Drug Inactive 06/24/ MH (ANES) form: INJ, ONCE, 2016 [facility] Stop date: 06/24/16 17:40:00 CDT ondansetron Route: IV, Drug Inactive 06/24/ MH (ANES) form: INJ, ONCE, 2016 Stop date: 06/24/16 17:23:00 CDT protamine Route: IV, Drug Inactive 06/24/ MH (ANES) form: INJ, ONCE, 2016 [facility] Stop date: 06/24/16 17:03:00 CDT calcium Route: IV, Drug Inactive MH chloride (ANES) form: INJ, ONCE, 2016 [facility] Stop date: 06/24/16 16:48:00 CDT nitroglycerin Route: IV, Drug Inactive MH (ANES) form: INJ, ONCE, 2016 Stop date: 06/24/16 15:17:00 CDT heparin (ANES) Route: IV, Drug Inactive form: INJ, ONCE, 2016 [facility] Stop date: 06/24/16 15:07:00 CDT fentaNYL (ANES) Route: IV, Drug Inactive MH form: INJ, ONCE, 2016 [facility] Stop date: 06/24/16 14:31:00 CDT ePHEDrine Route: [...] Inactive 06/24/ MH form: INJ, ONCE, 2016 [facility] Stop date: 06/24/16 14:06:00 CDT Amicar (ANES) Route: IV, Drug Inactive MH (ANES) + form: INJ, Dosing 2016 [facility] Weight 103.7, kg, Start date: 06/24/16 13:35:00 CDT, Stop date: 06/24/16 14:35:00 CDT vancomycin Route: IV, Drug Inactive 06/24/ MH (ANES) (ANES) form: INJ, Start 2016 [facility] date: 06/24/16 13:29:00 CDT, Stop date: 06/24/16 14:29:00 CDT midazolam Route: IV, Drug Inactive MH (ANES) form: SOLN, ONCE, 2016 [facility] Stop date: 06/24/16 13:11:00 CDT morphine Route: IV, Drug Inactive MH Sulfate (ANES) form: INJ, ONCE, 2016 [facility] Stop date: 06/24/16 13:11:00 CDT Isolyte S (PH Route: IV, Total Inactive MH 7.4) 1000 mL Volume: 1,000, 2016 [facility] (ANES) Start date: 06/24/16 12:39:00 CDT, Stop date: 06/24/16 13:39:00 CDT sodium chloride 1,000 mL, Rate: No Longer MH 0.9% 1000 ml 125 ml/hr, Infuse Active 2016 [facility] INJ 1,000 mL over: 8 hr, Route: IV, Dosing Weight 99.563 kg, Total Volume: 1,000, Start date: 06/22/16 7:35:00 CDT, Duration: 30 day, Stop date: 07/22/16 7:34:00 CDT Sodium Chloride 250 mL, 250 Inactive MH 0.154 MEQ/ML ml/hr, Infuse 2017 [facility] Injectable Over: 1 hr, Solution Route: IV, 250, Drug form: INJ, ONCE, Priority: STAT, Dosing Weight 99.563 kg, Start date: 06/22/16 7:34:00 CDT, Duration: 1 doses or times, Stop date: 06/22/16 7:34:00 CDT sodium chloride 1,000 mL, Rate: Inactive 06/22/ MH 0.9% 1000 ml 125 ml/hr, Infuse 2017 [facility] INJ 1,000 mL over: 8 hr, Route: IV, Dosing Weight 99.563 kg, Total Volume: 1,000, Start date: 06/22/16 7:19:00 CDT, Duration: 30 day, Stop date: 07/22/16 7:18:00 CDT Lopressor 50 mg, 1 tab, No Longer Route: PO, Drug Active 2016 [facility] form: TAB, BID, Dosing Weight 102.926, kg, Start date: 06/19/16 18:00:00 CDT, Duration: 30 day, Stop date: 07/19/16 17:00:00 CDTNotes: (Same as: Lopressor) Lopressor 50 mg, 1 tab, Inactive Route: PO, Drug 2016 [facility] form: TAB, Q8Hnow, Dosing Weight 102.926, kg, Start date: 06/19/16 17:00:00 CDT, Duration: 30 day, Stop date: 07/19/16 9:00:00 CDTNotes: (Same as: Lopressor) Levemir 10 unit, 0.1 mL, No Longer Route: SUB-Q, Active 2016 [facility] Drug form: INJ, Bedtime, Dosing Weight 102.926, kg, Start date: 06/17/16 21:00:00 CDT, Duration: 30 day, Stop date: 07/16/16 21:00:00 CDTNotes: Same as Levemir Do not hold insulin without contacting prescriber WASTE: F/P - Black; E - Municipal Trash Bin "single patient use only" Saline Flush 10 ml, Route: No Longer 0.9% IVP, Drug Form: Active 2016 [facility] INJ, Dosing Weight 102.926, kg, Q12H, Start date: 06/17/16 21:00:00 CDT, Duration: 30 day, Stop date: 07/17/16 9:00:00 CDTNotes: (Same as: BD Posiflush) chlorhexidine 15 ml, Route: No Longer gluconate 1.2 S&SPIT, BID, Drug Active 2016 [facility] MG/ML Mouthwash form: LIQ, Start date: 06/17/16 20:00:00 CDT, Duration: 30 day, Stop date: 07/17/16 17:00:00 CDTNotes: (Same As: Peridex) Cefazolin 2 gm, 100 mL, No Longer Route: IVPB, Drug Active 2016 [facility] form: INJ, ONCALL, Dosing Weight 102.926, kg, Start date: 06/17/16 19:00:00 CDT, Duration: 30 day, Stop date: 07/17/16 18:59:00 CDTNotes: Same as: Ancef Mupirocin 0.02 1 appl, Route: No Longer MG/MG Topical NASAL, ONCALL, Active 2016 [facility] Ointment Drug form: OINT, Start date: 06/17/16 19:00:00 CDT, Duration: 30 day, Stop date: 07/17/16 18:59:00 CDT sodium chloride 250 mL, Rate: On No Longer 0.9% INJ 250 mL call for use with Active 2016 [facility] blood product administration, Dosing Weight 102.926, kg, Route: IV, Total Volume: 250, Start Date: 06/17/16 18:54:00 CDT, Duration: 30 day, Stop date: 07/17/16 18:53:00 CDT, Replace Every: 24 hr Saline Flush 10 ml, Route: No Longer 0.9% IVP, Drug Form: Active 2016 [facility] INJ, Dosing Weight 102.926, kg, PRN, PRN Line Flush, Start date: 06/17/16 18:54:00 CDT, Duration: 30 day, Stop date: 07/17/16 18:53:00 CDTNotes: (Same as: BD Posiflush) metoprolol 12.5 mg, Route: Inactive tartrate PO, Drug form: 2016 [facility] TAB, Q12H, Dosing Weight 102.926, kg, Priority: NOW, Start date: 06/17/16 18:54:00 CDT, Duration: 30 day, Stop date: 07/17/16 9:00:00 CDT Nitroglycerin 1 inch, Route: No Longer 0.02 MG/MG TOP, Drug Form: Active 2016 [facility] Topical OINT, Dosing Ointment Weight 102.926, kg, Q6H, Start date: 06/17/16 12:00:00 CDT, Duration: 30 day, Stop date: 07/17/16 6:00:00 CDTNotes: 1 gram is approximately 1 inch of nitroglycerin ointment (20 mg NTG per gram) (Same as:Nitro-Bid) Enoxaparin 100 mg, 1 mL, No Longer Route: SUB-Q, Active 2016 [facility] Drug form: INJ, [id number], Dosing Weight 102.926, kg, Start date: 06/17/16 9:00:00 CDT, Duration: 30 day, Stop date: 07/16/16 21:00:00 CDTNotes: Nurse to ensure documentation of patient education per anticoagulation policy. (Same as: Lovenox) Albuterol 0.833 3 mL, Route: NEB, No Longer MG/ML / Drug Form: SOLN, Active 2016 [facility] Ipratropium Dosing Weight [place] 0.167 102.926, kg, MG/ML Inhalant RQ6H, Start date: Solution 06/16/16 20:00:00 [DuoNeb] CDT, Duration: 30 day, Stop date: 07/16/16 14:00:00 CDTNotes: (Same as: Duoneb) Budesonide 0.25 0.5 mg, 2 mL, No Longer MG/ML Inhalant Route: NEB, Drug Active 2016 [facility] Solution form: SUSP, [Pulmicort] RQ12H, Dosing Weight 102.926, kg, Start date: 06/16/16 18:32:00 CDT, Duration: 30 day, Stop date: 07/16/16 16:00:00 CDTNotes: (Same As: Pulmicort) Solu-Medrol 80 mg, 1.28 mL, Inactive Route: IVP, Drug 2016 [facility] form: INJ, ONCE, Dosing Weight 102.926, kg, Start date: 06/16/16 18:12:00 CDT, Stop date: 06/16/16 18:12:00 CDTNotes: (Same as:Solu-MEDROL, A-Methapred) Lovenox 100 mg, 1 mL, Inactive Route: SUB-Q, 2016 [facility] Drug form: INJ, ONCE, Dosing Weight 102.926, kg, Start date: 06/16/16 18:00:00 CDT, Stop date: 06/16/16 18:00:00 CDTNotes: Nurse to ensure documentation of patient education per anticoagulation policy. (Same as: Lovenox) Sodium Chloride 250 mL, 250 No Longer 0.154 MEQ/ML ml/hr, Infuse Active 2016 [facility] Injectable Over: 1 hr, Solution Route: IV, 250, Drug form: INJ, ONCALL, Priority: Routine, Dosing Weight 102.926 kg, Start date: 06/16/16 17:00:00 CDT, Duration: 1 doses or times Sodium Chloride 750 mL, Rate: 75 Inactive 0.154 MEQ/ML ml/hr, Infuse 2016 [facility] Injectable over: 10 hr, Solution Route: IV, Dosing Weight 102.926 kg, Total Volume: 750, Start date: 06/16/16 16:15:00 CDT, Stop date: 06/17/16 16:14:00 CDT acetaminophen-c 1 tab, Route: PO, No Longer odeine #3 Drug Form: TAB, Active 2016 [facility] Dosing Weight 102.926, kg, Q4H, PRN Pain Score 4-6, Start date: 06/16/16 16:11:00 CDT, Duration: 30 day, Stop date: 07/16/16 16:10:00 CDTNotes: Do not exceed 4gm/day of acetaminophen. (Same as: Tylenol with Codeine # 3) Acetaminophen 650 mg, 2 tab, No Longer Route: PO, Drug Active 2016 [facility] form: TAB, Q4H, Dosing Weight 102.926, kg, [...] 0.9% IV IVPB, Start date: Active 2016 [facility] 06/16/16 15:49:00 CDT, Duration: 30 day, Stop date: 07/16/16 15:48:00 CDT, PRN Line Flush Dextrose 50% 25 gm, 50 mL, No Longer Syringe Route: IVP, Drug Active 2016 [facility] Form: INJ, Dosing Weight 102.926, kg, PRN, PRN Blood Glucose Results, Start date: 06/16/16 15:45:00 CDT, Duration: 30 day, Stop date: 07/16/16 15:44:00 CDT Insulin, 5 unit, 0.05 mL, No Longer Aspart, Human Route: SUB-Q, Active 2016 [facility] Drug form: SOLN, TID-Before Meals, Dosing Weight [...] IM, No Longer Drug form: Active 2016 [facility] PDR/INJ, PRN, Dosing Weight 102.926, kg, PRN Blood Glucose Results, Start date: 06/16/16 15:45:00 CDT, Duration: 30 day, Stop date: 07/16/16 15:44:00 CDT Sodium Chloride 1,000 mL, Rate: Inactive 0.154 MEQ/ML 100 ml/hr, Infuse 2016 [facility] Injectable over: 10 hr, Solution Route: IV, Dosing Weight 102.926 kg, Total Volume: 1,000, Start date: 06/16/16 9:19:00 CDT, Duration: 30 day, Stop date: 07/16/16 9:18:00 CDT aspirin 81 mg 81 mg, 1 tab, No Longer tablet, enteric Route: PO, Drug Active 2016 [facility] coated form: ECTAB, Daily, Dosing Weight 102.926, kg, Start date: 06/16/16 9:00:00 CDT, Duration: 30 day, Stop date: 07/15/16 9:00:00 CDTNotes: Do not crush or chew. (Same As: Ecotrin) Nitroglycerin 0.5 inch, Route: Inactive 0.02 MG/MG TOP, Drug Form: 2016 [facility] Topical OINT, Dosing Ointment Weight 102.926, kg, TID, Start date: 06/16/16 6:00:00 CDT, Duration: 30 day, Stop date: 07/15/16 18:00:00 CDTNotes: 1 gram is approximately 1 inch of nitroglycerin ointment (20 mg NTG per gram) (Same as:Nitro-Bid) metoprolol 50 mg, 1 tab, No Longer tartrate Route: PO, Drug Active 2016 [facility] form: TAB, Q8H, Dosing Weight 102.926, kg, Start date: 06/16/16 0:00:00 CDT, Duration: 30 day, Stop date: 07/15/16 16:00:00 CDTNotes: (Same as: Lopressor) Sodium Chloride 250 mL, 250 Inactive 0.154 MEQ/ML ml/hr, Infuse 2016 [facility] Injectable Over: 1 hr, Solution Route: IV, 250, Drug form: INJ, ONCALL, Priority: Routine, Dosing Weight 102.926 kg, Start date: 06/15/16 22:00:00 CDT, Duration: 1 doses or times Sodium Chloride 750 mL, Rate: 75 No Longer 0.154 MEQ/ML ml/hr, Infuse Active 2016 [facility] Injectable over: 10 hr, Solution Route: IV, Dosing Weight 102.926 kg, Total Volume: 750, Start date: 06/15/16 21:02:00 CDT, Duration: 24 hr, Stop date: 06/16/16 21:01:00 CDT Saline Flush 10 ml, Route: No Longer 0.9% IVP, Drug Form: Active 2016 [facility] INJ, Dosing Weight 102.926, kg, Q12H, Start date: 06/15/16 21:00:00 CDT, Duration: 30 day, Stop date: 07/15/16 9:00:00 CDTNotes: (Same as: BD Posiflush) atorvastatin 40 mg, 1 tab, No Longer Route: PO, Drug Active 2016 [facility] form: TAB, Bedtime, Dosing Weight 102.926, kg, Start date: 06/15/16 21:00:00 CDT, Duration: 30 day, Stop date: 07/14/16 21:00:00 CDTNotes: (Same as: Lipitor) metoprolol 25 mg, Route: PO, Inactive tartrate Drug form: TAB, 2016 [facility] Q12H, Dosing Weight 102.926, kg, Start date: 06/15/16 21:00:00 CDT, Duration: 30 day, Stop date: 07/15/16 9:00:00 CDT Enoxaparin 100 mg, 1 mL, No Longer Route: SUB-Q, Active 2016 [facility] Drug form: INJ, [id number], Dosing Weight 102.926, kg, Start date: 06/15/16 19:00:00 CDT, Duration: 30 day, Stop date: 07/15/16 7:00:00 CDTNotes: Nurse to ensure documentation of patient education per anticoagulation policy. (Same as: Lovenox) Albuterol 0.833 3 ml, Route: NEB, No Longer MG/ML / Drug Form: SOLN, Active 2016 [facility] Ipratropium Dosing Weight [place] 0.167 102.926, kg, PRN, MG/ML Inhalant PRN Respiratory Solution Protocol, Start [DuoNeb] date: 06/15/16 13:56:00 CDT, Duration: 30 day, Stop date: 07/15/16 13:55:00 CDTNotes: (Same as: Duoneb) Saline Flush 10 ml, Route: No Longer 0.9% IVP, Drug Form: Active 2016 [facility] INJ, Dosing Weight 102.926, kg, PRN, PRN Line Flush, Start date: 06/15/16 13:52:00 CDT, Duration: 30 day, Stop date: 07/15/16 13:51:00 CDTNotes: (Same as: BD Posiflush) Labetalol 20 mg, 4 mL, No Longer Route: IVP, Drug Active 2016 [facility] form: INJ, Q4H, Dosing Weight 102.926, kg, PRN Hypertension, Start date: 06/15/16 13:52:00 CDT, Duration: 30 day, Stop date: 07/15/16 13:51:00 CDT, for SBP>180 or DBP>110, hold if HRNotes: (Same as: Normodyne, Trandate) Push over 2 minutes Give bolus over 2-3 minutes. Trazodone 50 mg, 1 tab, No Longer Hydrochloride Route: PO, Drug Active 2016 [facility] 50 MG Oral form: TAB, Tablet Bedtime, Dosing Weight 102.926, kg, PRN Insomnia, Start date: 06/15/16 13:52:00 CDT, Duration: 30 day, Stop date: 07/15/16 13:51:00 CDTNotes: (Same As: Desyrel) Miralax 17 gm, 1 pkt, No Longer Route: PO, Drug Active 2016 [facility] form: PWDR, Daily, Dosing Weight 102.926, kg, PRN Constipation, Start date: 06/15/16 13:52:00 CDT, Duration: 30 day, Stop date: 07/15/16 13:51:00 CDTNotes: Dissolve in 8 oz of water or juice. (Same as: Miralax) Nitroglycerin 0.4 mg, 1 tab, No Longer Route: SL, Drug Active 2016 [facility] form: TAB, Q5Min, Dosing Weight 102.926, kg, PRN Chest Pain, Start date: 06/15/16 13:52:00 CDT, Duration: 3 doses or times, Stop date: Limited # of timesNotes: (Same as:Nitroquick, Nitrostat) "Do Not Crush" Sublingual tablet Morphine 1 mg, 0.5 mL, No Longer Route: IVP, Drug Active 2016 [facility] form: INJ, Q2H, Dosing Weight 102.926, kg, PRN Chest Pain, Start date: 06/15/16 13:52:00 CDT, Duration: 2 doses or times, Stop date: Limited # of timesNotes: (Same as:MORPhine Sulfate) Ondansetron 4 mg, 1 tab, No Longer Route: PO, Drug Active 2016 [facility] form: TAB, Q8H, Dosing Weight 102.926, kg, PRN Nausea & Vomiting, Start date: 06/15/16 13:52:00 CDT, Duration: 30 day, Stop date: 07/15/16 13:51:00 CDTNotes: (Same as: Zofran) Allergies, Adverse Reactions, Alerts Substance Category Reaction Severity Reaction Status Date Comments Source type Reported Betadine Assertion Drug Active allergy [facility] Immunizations Immunization Date Site Status Last Updated Comments Source Given pneumococcal Right completed [facility] 13-valent 7 deltoid vaccine Results Order Name [...] is not recommended in the following populations: [facility] 3m2 Individuals with unstable creatinine concentrations, including [...] Lvl 104 mg/dL 70 - 99 06/30 [facility] CHEM PANEL Potassium 4.0 meq/L 3.5 - 5.1 06/30 Lvl [facility] CHEM PANEL Sodium Lvl 140 meq/L 135 - 145 06/30 [facility] CHEM PANEL Creatinine 1.10 mg/dL 0.50 - 06/30 Lvl 1.40 [facility] CHEM PANEL BUN 21 mg/dL 7 - 22 06/30 [facility] CHEM PANEL AGAP 13.0 meq/L 10.0 - 04/ MH 20.0 [facility] CHEM PANEL CO2 27 meq/L 24 - 32 06/30 [facility] CHEM PANEL Calcium Lvl 8.2 mg/dL 8.5 - 10.5 06/30 [facility] CHEM PANEL Chloride Lvl 104 meq/L 95 - 109 06/30 [facility] Chest Chest 1view Clinical Indication:65 years Male with Tube placement/ removal/reposition 06/30 - 1view DX DX /2016 - [facility] Comparison: Chest x-ray of 06/27/2016 Read by: [...] mg/dL 1.8 - 2.4 06/29 Lvl /2016 [facility] ELECTROLYT AGAP 15.4 meq/L 10.0 - 06/29 ES 20.0 [facility] ELECTROLYT eGFR 69 06/29 Result Comment: The [...] is not recommended in the following populations: [facility] 3m2 Individuals with unstable creatinine concentrations, including [...] Lvl 110 mg/dL 70 - 99 06/29 [facility] ELECTROLYT BUN 26 mg/dL 7 - 22 06/29 [facility] ELECTROLYT Chloride Lvl 105 meq/L 95 - 109 06/29 [facility] ELECTROLYT Creatinine 1.10 mg/dL 0.50 - 04 [facility] Lvl 1.40 /2016 [facility] ELECTROLYT Sodium Lvl 137 meq/L 135 - 145 06/29 [facility] ELECTROLYT Potassium 4.4 meq/L 3.5 - 5.1 06/29 [facility] ELECTROLYT CO2 21 meq/L 24 - 32 06/29 [facility] ELECTROLYT Calcium Lvl 8.1 mg/dL 8.5 - 10.5 06/29 [facility] HEMATOLOGY Basophils 0.3 % 0.0 - 1.0 06/29 [facility] HEMATOLOGY Segs-Bands # 9.5 K/CMM 1.5 - 8.1 06/29 [facility] HEMATOLOGY Lymphocytes 1.2 K/CMM 1.0 - 5.5 06/29 [facility] HEMATOLOGY Monocytes # 1.4 K/CMM 0.0 - 0.8 06/29 [facility] HEMATOLOGY Basophils # 0.0 K/CMM 0.0 - 0.2 06/29 [facility] HEMATOLOGY Eosinophils 0.2 K/CMM 0.0 - 0.5 06/29 [facility] HEMATOLOGY Polychrom Moderate None Seen 06/29 [facility] *ABN* (06/29/16 5:06 AM) HEMATOLOGY Plt Morph Normal 06/29 [facility] (06/29/16 5:06 AM) HEMATOLOGY Lymphocytes 9.7 % 20.0 - 06/29 40.0 [facility] HEMATOLOGY Segs 77.0 % 45.0 - 06/29 75.0 [facility] HEMATOLOGY Eosinophils 1.6 % 0.0 - 4.0 06/29 [facility] HEMATOLOGY Monocytes 11.4 % 2.0 - 12.0 06/29 [facility] HEMATOLOGY MCH 28.6 pg 27.0 - 06/29 MH 31.0 [facility] Platelet 163 K/CMM 133 - 450 04 [facility] HEMATOLOGY RDW 14.2 % 11.5 - 06/29 MH 14.5 [facility] HEMATOLOGY MCHC 33.9 g/dL 32.0 - 06/29 MH 36.0 /2016 [facility] MPV 8.3 fL 7.4 - 10.4 06/29 [facility] HEMATOLOGY RBC 3.11 M/CMM 4.70 - 06/29 6.10 [facility] HEMATOLOGY WBC 12.3 K/CMM 3.7 - 10.4 06/29 [facility] HEMATOLOGY MCV 84.3 fL 80.0 - 06/29 MH 94.0 /2016 [facility] HEMATOLOGY Hct 26.2 % 42.0 - 06/29 54.0 [facility] Hgb 8.9 g/dL 14.0 - 06/29 18.0 [facility] CHEM PANEL eGFR 56 06/28 Result Comment: [...] is not recommended in the following populations: [facility] 3m2 Individuals with unstable creatinine concentrations, including [...] Lvl 8.3 mg/dL 8.5 - 10.5 06/28 [facility] CHEM PANEL Potassium 4.5 meq/L 3.5 - 5.1 06/28 Lvl [facility] CHEM PANEL CO2 24 meq/L 24 - 32 06/28 [facility] CHEM PANEL Chloride Lvl 107 meq/L 95 - 109 06/28 [facility] CHEM PANEL Glucose Lvl 118 mg/dL 70 - 99 06/28 [facility] CHEM PANEL BUN 29 mg/dL 7 - 22 06/28 [facility] CHEM PANEL Sodium Lvl 139 meq/L 135 - 145 04/ /2016 [facility] CHEM PANEL Creatinine 1.30 mg/dL 0.50 - 06/28 MH Lvl 1.40 /2016 [facility] CHEM PANEL AGAP 12.5 meq/L 10.0 - 06/28 MH 20.0 [facility] CHEM PANEL Magnesium 2.7 mg/dL 1.8 - 2.4 06/28 MH Lvl /2016 [facility] HEMATOLOGY Hgb 9.0 g/dL 14.0 - 06/28 MH 18.0 /2016 [facility] HEMATOLOGY Hct 27.7 % 42.0 - 06/28 MH 54.0 /2016 [facility] HEMATOLOGY MCV 87.2 fL 80.0 - 06/28 MH 94.0 [facility] HEMATOLOGY MCH 28.5 pg 27.0 - 06/28 31.0 [facility] MCHC 32.6 g/dL 32.0 - 06/28 36.0 [facility] HEMATOLOGY WBC 11.9 K/CMM 3.7 - 10.4 06/28 [facility] HEMATOLOGY RBC 3.17 M/CMM 4.70 - 06/28 MH 6.10 [facility] HEMATOLOGY RDW 14.6 % 11.5 - 06/28 MH 14.5 [facility] HEMATOLOGY Platelet 136 K/CMM 133 - 450 06/28 [facility] HEMATOLOGY MPV 8.6 fL 7.4 - 10.4 06/28 [facility] HEMATOLOGY Lymphocytes 1.5 K/CMM 1.0 - 5.5 06/28 MH # /2016 [facility] HEMATOLOGY Monocytes # 1.4 K/CMM 0.0 - 0.8 06/28 [facility] HEMATOLOGY Eosinophils 0.1 K/CMM 0.0 - 0.5 06/28 # /2016 [facility] HEMATOLOGY Lymphocytes 12.3 % 20.0 - 06/28 MH 40.0 [facility] HEMATOLOGY Monocytes 11.6 % 2.0 - 12.0 06/28 [facility] HEMATOLOGY Eosinophils 1.1 % 0.0 - 4.0 06/28 [facility] HEMATOLOGY Basophils 0.3 % 0.0 - 1.0 06/28 [facility] HEMATOLOGY Segs-Bands # 8.9 K/CMM 1.5 - 8.1 06/28 [facility] HEMATOLOGY Segs 74.7 % 45.0 - 06/28 75.0 /2016 [facility] CHEM PANEL Magnesium 2.4 mg/dL 1.8 - 2.4 / Lvl /2016 [facility] HEMATOLOGY WBC 18.6 K/CMM 3.7 - 10.4 06/27 /2016 [facility] HEMATOLOGY RDW 14.7 % 11.5 - 06/27 14.5 /2016 [facility] HEMATOLOGY MCHC 33.1 g/dL 32.0 - 06/27 36.0 /2016 [facility] HEMATOLOGY Hct 29.5 % 42.0 - 06/27 54.0 /2016 [facility] HEMATOLOGY MCH 28.1 pg 27.0 - 06/27 31.0 /2016 [facility] HEMATOLOGY MCV 84.7 fL 80.0 - 06/27 94.0 /2016 [facility] HEMATOLOGY MPV 9.7 fL 7.4 - 10.4 06/27 [facility] HEMATOLOGY Platelet 118 K/CMM 133 - 450 06/27 [facility] Hgb 9.8 g/dL 14.0 - 06/27 18.0 /2016 [facility] HEMATOLOGY RBC 3.48 M/CMM 4.70 - 06/27 6.10 /2016 [facility] HEMATOLOGY Lymphocytes 2.0 K/CMM 1.0 - 5.5 / MH # /2016 [facility] HEMATOLOGY Segs 76.1 % 45.0 - 06/27 75.0 [facility] HEMATOLOGY Eosinophils 0.1 % 0.0 - 4.0 06/27 [facility] HEMATOLOGY Monocytes 12.7 % 2.0 - 12.0 06/27 [facility] HEMATOLOGY Segs-Bands # 14.2 K/CMM 1.5 - 8.1 06/27 [facility] HEMATOLOGY Basophils 0.5 % 0.0 - 1.0 06/27 [facility] HEMATOLOGY Lymphocytes 10.6 % 20.0 - 06/27 40.0 /2016 [facility] HEMATOLOGY Basophils # 0.1 K/CMM 0.0 - 0.2 06/27 [facility] HEMATOLOGY Monocytes # 2.4 K/CMM 0.0 - 0.8 06/27 [facility] Chest Chest 1view Study: Chest 1view DX 06/27 - 1view DX DX - [facility] Clinical Indication: Tube placement/removal/reposition Read by: Kaleb Melissa MD Dictated Date/time: 06/27/16 08:13 Electronically Signed by: Kaleb Melissa MD 06/27/16 08:15 FINAL REPORT Comparison: Chest x-ray from 06/26/2016 FINDINGS: 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 Right internal jugular central line is stable. [place]-Cristian cath eter has been removed. Cardiac silhouette is normal in size. Calcified AP window lymph node is noted. Lung volumes are diminished and bibasilar atelectasis is seen. No pleural effusion or pneumothorax is seen. The osseous structures are unremarkable. IMPRESSION: Interval removal of [place]-Cristian catheter SL: [id number] CHEM PANEL Phosphorus 2.0 mg/dL 2.5 - 4.5 06/26 /2016 [facility] HEMATOLOGY Eosinophils 0.0 K/CMM 0.0 - 0.5 06/26 # /2016 [facility] HEMATOLOGY Basophils # 0.0 K/CMM 0.0 - 0.2 06/26 [facility] PARATHYROI Ca Ion WB 1.11 . - 06/26 D PROFILE mMol/L . [facility] PARATHYROI Ca Norm WB 1.11 1.05 - 06/26 D PROFILE mMol/L . [facility] SPECIAL Hgb A1C 6.4 % <=5.6 % 06/26 CHEMISTRY /2016 [facility] Chest Chest 1view Clinical Indication:65 years Male with Tube placement/ removal/reposition 06/26 - 1view DX - [facility] Comparison: Chest x-ray 06/25/2016 Read by: Beck [...] Phosphorus 1.6 mg/dL 2.5 - 4.5 06/25 [facility] HEMATOLOGY RBC Morph Normal 06/25 [facility] (06/25/16 2:28 AM) HEMATOLOGY Plt Morph Normal 06/25 [facility] (06/25/16 2:28 AM) PARATHYROI Ca Norm WB 1.06 1.05 - 06/25 D PROFILE mMol/L 04.20 [facility] PARATHYROI Ca Ion WB 1.09 1.05 - 06/25 D PROFILE mMol/L 04.20 [facility] Chest Chest 1view Chest 1view DX 06/25 - 1view DX DX /2016 - [facility] CLINICAL HISTORY:Tube placement/removal/reposition Read by: Brett Lombardo [...] wires project over the patient's chest. SL: [id number] HEMATOLOGY POC 34.0 % 42.0 - 06/24 Hematocrit 54.0 [facility] HEMATOLOGY POC 11.6 g/dL 14.0 - 06/24 Hemoglobin 18.0 [facility] HEMATOLOGY POC Ion Ca 1.09 1.05 - 06/24 MH mMol/L . [facility] HEMATOLOGY POC 4.4 meq/L 3.5 - 5.1 06/24 Potassium /2016 [facility] HEMATOLOGY POC Sodium 143 meq/L 135 - 145 06/24 [facility] CHEM PANEL A/G Ratio 1.4 0.7 - 1.6 06/24 [facility] CHEM PANEL Globulin 2.1 g/dL 2.7 - 4.2 06/24 [facility] CHEM PANEL Bili 0.4 mg/dL 0.0 - 1.0 06/24 [facility] CHEM PANEL Bili Direct 0.2 mg/dL 0.0 - 0.3 06/24 [facility] CHEM PANEL Bili Total 0.6 mg/dL 0.2 - 1.3 06/24 [facility] CHEM PANEL Alk Phos 38 unit/L 39 - 136 06/24 [facility] CHEM PANEL AST 42 unit/L 0 - 37 06/24 [facility] CHEM PANEL ALT 51 unit/L 0 - 65 06/24 [facility] CHEM PANEL Albumin Lvl 2.9 g/dL 3.5 - 5.0 06/24 [facility] CHEM PANEL Total 5.0 g/dL 6.4 - 8.4 06/24 [facility] CHEM PANEL Phosphorus 2.3 mg/dL 2.5 - 4.5 06/24 [facility] HEMATOLOGY FSP <5 ug/ml <5 ug/ml 06/24 [facility] HEMATOLOGY Fibrinogen 206 mg/dL 230 - 510 06/24 Lvl [facility] HEMATOLOGY PTT 34.9 s 22.9 - 06/24 MH 35.8 [facility] HEMATOLOGY INR 1.27 0.85 - 06/24 1. [facility] HEMATOLOGY PT 16.2 s 12.0 - 06/24 14. [facility] PARATHYROI Ca Norm WB 1.09 1.05 - 06/24 D PROFILE mMol/L 1. [facility] PARATHYROI Ca Ion WB 1.10 1.05 - 06/24 D PROFILE mMol/L . [facility] HEMATOLOGY Fibrinogen 196 mg/dL 230 - 510 06/24 Lvl [facility] HEMATOLOGY PTT 32.8 s 22.9 - 06/24 35.8 [facility] HEMATOLOGY PT 16.6 s 12.0 - 06/24 14. [facility] HEMATOLOGY INR 1.32 0.85 - 06/24 1. [facility] Chest Chest 1view Patient Name: CHYNA RYAN 06/24 - 1view DX DX /2016 - [facility] : 1950; Age: 65 years y/o Male MR: [id number] Read by: Ted Hernandez MD Dictated Date/time: [...] base. 5. There is a right IJ [place]-Cristian catheter. The catheter tip is in the expected location of the pulmonary valve. The [place]-Cristian catheter does not extend into either main pulmonary artery. 6. The tip of the right IJ central venous catheter is in the lower superior vena cava. 7. There are mild scattered degenerative changes involving the thoracic spine. The regional skeleton is otherwise unremarkable. SL: [facility] BLOOD BANK Antibody Negative 06/24 RESULTS Scrn [facility] (06/24/16 4:15 AM) BLOOD BANK ABO/Rh A POS 06/24 RESULTS /2016 [facility] BLOOD BANK Platelet Product available 06/24 RESULTS product /2016 [facility] (06/24/16 4:00 AM) BLOOD BANK FFP product Product available 06/24 RESULTS /2016 [facility] (06/24/16 4:00 AM) BLOOD BANK Cryo product Product available 06/24 RESULTS /2016 [facility] (06/24/16 4:00 AM) BLOOD BANK RBC product Product available 06/24 RESULTS /2016 [facility] (06/24/16 4:00 AM) HEMATOLOGY INR 1.05 0.85 - 06/22 MH 1. /2016 [facility] HEMATOLOGY PTT 37.0 s 22.9 - 06/22 35.8 /2016 [facility] HEMATOLOGY PT 13.9 s 12.0 - 06/22 14.7 /2016 [facility] BLOOD BANK ABO/Rh A POS 06/20 RESULTS /2016 [facility] BLOOD BANK Antibody Negative 06/20 RESULTS Scrn [facility] (06/20/16 5:18 AM) HEMATOLOGY Plt Morph Normal 06/20 /2016 [facility] (06/20/16 5:18 AM) HEMATOLOGY RBC Morph Normal 06/20 /2016 [facility] (06/20/16 5:18 AM) MOLECULAR HCV RNA 6.9 06/20 DIAGNOSTIC Log10 [iU]/mL /2016 [facility] MOLECULAR HCV RNA [id number] 06/20 DIAGNOSTIC VirLoad [iU]/mL /2016 [facility] BLOOD BANK FFP product Product available 06/20 RESULTS /2016 [facility] (06/20/16 5:00 AM) BLOOD BANK Cryo product Product available 06/20 RESULTS /2016 [facility] (06/20/16 5:00 AM) BLOOD BANK RBC product Product available 06/20 RESULTS /2016 [facility] (06/20/16 5:00 AM) BLOOD BANK Platelet Product available 06/20 RESULTS product /2016 [facility] (06/20/16 5:00 AM) BACTERIAL MRSA by PCR Negative 06/18 - SEROLOGY /2016 [facility] (06/18/16 5:33 AM) CHEM PANEL B/C Ratio 18 6 - 25 06/18 [facility] CHEM PANEL Globulin 3.9 g/dL 2.7 - 4.2 06/18 [facility] CHEM PANEL A/G Ratio 0.8 0.7 - 1.6 06/18 [facility] CHEM PANEL ALT 67 unit/L 0 - 65 06/18 [facility] CHEM PANEL AST 74 unit/L 0 - 37 06/18 [facility] CHEM PANEL Total 7.1 g/dL 6.4 - 8.4 06/18 Protein [facility] CHEM PANEL Albumin Lvl 3.2 g/dL 3.5 - 5.0 06/18 [facility] CHEM PANEL Alk Phos 58 unit/L 39 - 136 06/18 [facility] CHEM PANEL Bili Total 0.4 mg/dL 0.2 - 1.3 06/18 [facility] LIPIDS CHD Risk 4.04 4.00 - 06/18 7.30 [facility] LIPIDS VLDL 16 06/18 [facility] LIPIDS LDL 121 mg/dL <=99 mg/dL 06/18 (Calculated) [facility] LIPIDS HDL 45 mg/dL >=61 mg/dL 06/18 [facility] LIPIDS Trig 82 mg/dL <=149 06/18 mg/dL [facility] LIPIDS Chol 182 mg/dL <=199 06/18 mg/dL [facility] SPECIAL Hgb A1C 6.4 % <=5.6 % 06/18 CHEMISTRY [facility] URINE AND UA null 0.1 - 1.0 06/18 STOOL Urobilinogen [facility] URINE AND UA Sq Epi None Seen 06/18 [facility] URINE AND UA RBC null 0 - 2 06/18 [facility] URINE AND UA Bili Negative Negative 06/18 [facility] *NA* (06/18/16 5:33 AM) URINE AND UA Ketones Negative Negative 06/18 [facility] mg/dL mg/dL [facility] URINE AND UA Glucose Negative Negative 06/18 [facility] mg/dL mg/dL [facility] URINE AND UA WBC null 0 - 5 06/18 [facility] URINE AND UA Leuk Est Negative Negative 06/18 [facility] (06/18/16 5:33 AM) URINE AND UA Nitrite Negative Negative 06/18 [facility] (06/18/16 5:33 AM) URINE AND UA Blood Negative Negative 06/18 [facility] (06/18/16 5:33 AM) URINE AND UA Protein Negative Negative 06/18 [facility] mg/dL mg/dL [facility] URINE AND UA Color Light Yellow Yellow 06/18 [facility] [facility] *NA* (06/18/16 5:33 AM) URINE AND UA Turbidity Clear Clear 06/18 [facility] (06/18/16 5:33 AM) URINE AND UA pH 5.0 5.0 - 8.0 06/18 [facility] URINE AND UA Spec Grav 1.008 <=1.030 06/18 [facility] Chest 2 Chest 2 CHEST, 2 VIEWS 06/18 - views DX views - [facility] HISTORY: ; Respiratory distress; Read by: Vikash Joseph MD Dictated Date/time: 06/18/16 09:54 Electronically Signed by: Vikash Joseph MD 06/18/16 09:55 FINAL REPORT COMPARISON: June 15, 2016 FINDINGS: Lungs are underinflated with mild bilateral basal atelectasis/infiltrate, left greater than right. No pleural effusion or pneumothorax. Stable mediastinum. No acute osseous abnormality. SL: [id number] URINE AND UA Turbidity Clear Clear 06/18 [facility] (06/17/16 11:28 PM) URINE AND UA pH 6.0 5.0 - 8.0 06/18 [facility] URINE AND UA Color Light Yellow Yellow 06/18 [facility] *NA* (06/17/16 11:28 PM) URINE AND UA Spec Grav 1.010 <=1.030 06/18 [facility] URINE AND UA WBC 1 /HPF 0 - 5 06/18 [facility] URINE AND UA Bacteria Occasional None Seen 06/18 [facility] /HPF /HPF [facility] URINE AND UA Glucose Negative Negative 06/18 [facility] mg/dL mg/dL [facility] URINE AND UA Protein Negative Negative 06/18 [facility] mg/dL mg/dL [facility] URINE AND UA null 0.1 - 1.0 06/18 [facility] Urobilinogen /2016 [facility] URINE AND UA Sq Epi None Seen 06/18 [facility] URINE AND UA Leuk Est Negative Negative 06/18 [facility] (06/17/16 11:28 PM) URINE AND UA Nitrite Negative Negative 06/18 [facility] (06/17/16 11:28 PM) URINE AND UA Blood Negative Negative 06/18 [facility] (06/17/16 11:28 PM) URINE AND UA Bili Negative Negative 06/18 [facility] *NA* (06/17/16 11:28 PM) URINE AND UA Ketones Negative Negative 06/18 [facility] mg/dL mg/dL [facility] Abdomen Abdomen RUQ ULTRASOUND ABDOMEN RIGHT UPPER QUADRANT 06/17 RUQ US - [facility] HISTORY: Abnormal Lab tests- LFT; Read by: [...] right abdominal ascites. IMPRESSION: Normal study. SL: [id number] LIPIDS CHD Risk 4.26 4.00 - 06/16 MH 7.30 [facility] LIPIDS VLDL 22 06/16 [facility] LIPIDS LDL 118 mg/dL <=99 mg/dL 06/16 (Calculated) /2016 [facility] LIPIDS HDL 43 mg/dL >=61 mg/dL 06/16 [facility] LIPIDS Chol 183 mg/dL <=199 06/16 mg/dL /2016 [facility] LIPIDS Trig 112 mg/dL <=149 06/16 mg/dL /2017 [facility] CARDIAC Total CK 384 unit/L 12 - 191 06/16 ENZYMES /2017 [facility] CARDIAC Troponin-I 7.44 ng/mL 0.00 - 06/16 Result ENZYMES 0.40 /2017 Comment: [facility] Critical Result(s) called to Missael Alvarenga at 06/15/2016 20:33 by TW. Read back OK. CARDIAC CK MB Index 4.4 0.0 - 2.5 06/16 ENZYMES /2016 [facility] CARDIAC CK MB 17.0 ng/mL 0.5 - 3.6 06/16 ENZYMES /2017 [facility] CARDIAC CK MB Index 4.8 0.0 - 2.5 06/15 ENZYMES /2017 [facility] CARDIAC Total CK 412 unit/L 12 - 06/15 ENZYMES /2017 [facility] CARDIAC CK MB 19.8 ng/mL 0.5 - 3.6 06/15 ENZYMES /2017 [facility] CARDIAC Troponin-I 6.52 ng/mL 0.00 - 06/15 Result ENZYMES 0.40 /2017 Comment: [facility] Critical Result(s) called to Robert long at 06/15/2016 16:44 by TW. Read back OK. CHEM PANEL Globulin 3.7 g/dL 2.7 - 4.2 06/15 /2016 [facility] CHEM PANEL A/G Ratio 0.9 0.7 - 1.6 06/15 /2016 [facility] CHEM PANEL B/C Ratio 19 6 - 25 06/15 [facility] CHEM PANEL Bili Total 0.5 mg/dL 0.2 - 1.3 06/15 [facility] CHEM PANEL Albumin Lvl 3.3 g/dL 3.5 - 5.0 06/15 [facility] CHEM PANEL Total 7.0 g/dL 6.4 - 8.4 06/15 [facility] CHEM PANEL Alk Phos 68 unit/L 39 - 136 06/15 [facility] CHEM PANEL AST 51 unit/L 0 - 37 06/15 [facility] CHEM PANEL ALT 44 unit/L 0 - 65 06/15 [facility] DRUG U Cannab Scr Negative Negative 06/15 SCREEN /2016 [facility] *NA* (06/15/16 2:56 PM) DRUG U Phencyc Negative Negative 06/15 SCREEN Scr /2016 [facility] *NA* (06/15/16 2:56 PM) DRUG U Opiate Scr Negative Negative 06/15 SCREEN [facility] *NA* (06/15/16 2:56 PM) DRUG U Cocaine Negative Negative 06/15 SCREEN Scr [facility] *NA* (06/15/16 2:56 PM) DRUG U Benzodia Negative Negative 06/15 SCREEN Scr [facility] *NA* (06/15/16 2:56 PM) DRUG U Amph Scr Negative Negative 06/15 SCREEN [facility] *NA* (06/15/16 2:56 PM) DRUG U Elsy Scr Negative Negative 06/15 SCREEN [facility] *NA* (06/15/16 2:56 PM) DRUG UDS Note See Note 06/15 SCREEN [facility] (06/15/16 2:56 PM) IMMUNOLOGY Hep Bs Ag Negative Negative 06/15 [facility] *NA* (06/15/16 2:56 PM) IMMUNOLOGY Hep B Core Negative Negative 06/15 IgM /2016 [facility] *NA* (06/15/16 2:56 PM) IMMUNOLOGY Hep C Ab Positive 06/15 [facility] *ABN* (06/15/16 2:56 PM) IMMUNOLOGY Hep A IgM Negative Negative 06/15 [facility] *NA* (06/15/16 2:56 PM) SPECIAL Hgb A1C 6.6 % <=5.6 % 06/15 CHEMISTRY /2016 [facility] URINE AND UA pH 5.5 5.0 - 8.0 06/15 [facility] URINE AND UA Spec Grav 1.020 <=1.030 06/15 [facility] URINE AND UA Protein Negative Negative 06/15 [facility] /2016 [facility] (06/15/16 2:56 PM) URINE AND UA Turbidity Clear Clear 06/15 [facility] (06/15/16 2:56 PM) URINE AND UA Leuk Est Negative Negative 06/15 [facility] (06/15/16 2:56 PM) URINE AND Micro? Not Indicated 06/15 [facility] (06/15/16 2:56 PM) URINE AND UA Glucose Negative Negative 06/15 [facility] (06/15/16 2:56 PM) URINE AND UA Bili Negative Negative 06/15 [facility] *NA* (06/15/16 2:56 PM) URINE AND UA Ketones Negative Negative 06/15 [facility] *NA* (06/15/16 2:56 PM) URINE AND UA Blood Negative Negative 06/15 [facility] (06/15/16 2:56 PM) URINE AND UA Nitrite Negative Negative 06/15 [facility] (06/15/16 2:56 PM) URINE AND UA 0.2 EU/dL 0.1 - 1.0 06/15 [facility] Urobilinogen [facility] URINE AND UA Color Yellow Yellow 06/15 [facility] *NA* (06/15/16 2:56 PM) Chest 2 Chest 2 Patient Name: CHYNA RYAN 06/15 - views DX views DX /2016 - [facility] : 1950; Age: 65 years Male MR: [id number] Read by: Azeem Duffy MD Dictated Date/time: [...] follow-up chest imaging to document resolution. SL: [id number] Vital Signs Vital Sign Value Date Comments Source Respitory Rate 20 06/30/2016 [facility] Systolic (mm Hg) 114 06/30/2016 [facility] Diastolic (mm Hg) 75 06/30/2016 [facility] Heart Rate 76 06/30/2016 [facility] Respitory Rate 20 06/30/2016 [facility] Systolic (mm Hg) 105 06/30/2016 [facility] Diastolic (mm Hg) 60 06/30/2016 [facility] Heart Rate 77 06/30/2016 [facility] Systolic (mm Hg) 108 06/30/2016 [facility] Diastolic (mm Hg) 68 06/30/2016 [facility] Heart Rate 70 06/30/2016 [facility] Respitory Rate 18 06/30/2016 [facility] Weight 111.384 06/29/2016 [facility] Weight 110.469 06/28/2016 [facility] Height 177.8 cm 06/25/2016 [facility] Height 177.8 cm 06/25/2016 [facility] Height 177.8 cm 06/24/2016 [facility] Temperature Oral (F) 97.6 F 06/24/2016 [facility] Weight 103.653 06/24/2016 [facility] Temperature Oral (F) 97.9 F 06/20/2016 [facility] BMI Calculated 32.56 06/15/2016 [facility] Encounters Location Location Encounter Encounter Reason Attending ADM DC Status Source Details Type Number For Provider Date Date Visit [facility] Inpatient [id number] Eugenia Benedict 06/15 07/01 [facility] Procedures Procedure Code Date Perfomer Comments Source Repair of knee [id number] 03/27/1973 [facility] collateral ligaments
--- OUTSIDE RECORDS SUMMARY | 2018-03-26 10:06 | XMS REPORT ---
:1950 [facility] Address [address] [place] [address] [address] [place] [address] Care Team Providers Name Role Phone Unavailable Unavailable Unavailable Problems This patient has no known problems. Allergies, Adverse Reactions, Alerts This patient has no known allergies or adverse reactions. Medications This patient has no known medications.
[2018-03-26 10:49] LABS: Absolute Lymphocytes (CBC) 1.9 K/uL (0.7-4.9); Absolute Monocytes 0.9 K/uL (0.1-1.3); Absolute Neutrophil 4.4 K/uL (1.8-8.0); Basophils % 1.1 % (0-1.3); Hematocrit 42.9 % (39.6-49.0); Lymphocytes % 25.8 % (15.3-44.8); MPV 8.3 fL (7.6-11.3); Monocytes % 12.4 % (3.3-12.3); RBC Red Blood Cell Count 4.97 M/uL (4.33-5.43)
[2018-03-26 11:08] LABS: Potassium 3.6 mmol/L (3.5-5.1)
--- NOTE | 2018-03-26 11:14 | RAD REPORT ---
EXAM DESCRIPTION: RAD - Chest Pa And Lat (2 Views) - 03/26/2018 11:06 am CLINICAL HISTORY: DYSPNEA Chest pain. COMPARISON: Chest Single View dated 02/12/2018; Chest Pa And Lat (2 Views) dated 10/31/2017; Chest Pa And Lat (2 Views) dated 09/21/2017; Chest Pa And Lat (2 Views) dated 11/29/2016 FINDINGS: Chronically elevated left hemidiaphragm is present with linear scarring or atelectasis in the left base. The lungs are otherwise clear. The heart is normal in size. No displaced fractures. St ernotomy wires present. IMPRESSION: No acute intrathoracic abnormality seen.
[2018-03-26] MEDS ORDERED: LEVALBUTEROL 1.25 MG/3 ML NEB ONE (11:39)
[2018-03-26] MEDS ORDERED: FUROSEMIDE 40 MG/4 ML VIAL ONE (11:39)
--- NOTE | 2018-03-26 11:39 | EDPHYS ---
Physician Documentation [facility] Name: Valerio Berg Age: 67 yrs Sex: Male : 1950 Arrival Date: 03/26/2018 Time: 10:04 Bed 6 Private MD: ED Physician Asa Cordoba HPI: 03/26 10:23 This 67 yrs old Black Male presents to ER via Ambulatory with complaints of Shortness rn Of Breath. 10:23 The patient has shortness of breath at rest, with light activity. Onset: The rn symptoms/episode began/occurred at an unknown time. Duration: The symptoms are intermittent. The patient's shortness of breath is aggravated by coughing, light activity, talking, walking. Severity of symptoms: At their worst the symptoms were mild in the emergency department the symptoms are unchanged. The patient has experienced similar episodes in the past. The patient has not recently seen a physician. Reports has hx of CHF, feels sob "all the time", wakes up and goes to sleep sob, went to cardiac rehab, they noticed he was breathing heavy and made him come here, patient states he would not have come if they didn't make him. . Historical: - Allergies: 10:10 Betadine; hj - Home Meds: 10:10 aspirin 81 mg Oral TbEC 1 tab once daily [Active]; hj - PMHx: 10:10 COPD; hj - PSHx: 10:10 CABG; Knee surgery; hip; hj - Immunization history:: Adult Immunizations up to date. - Social history:: Smoking status: Patient/guardian denies using tobacco, Patient/guardian denies using alcohol. - Ebola Screening: : Patient negative for fever greater than or equal to 101.5 degrees Fahrenheit, and additional compatible Ebola Virus Disease symptoms Patient denies exposure to infectious person Patient denies travel to an Ebola-affected area in the 21 days before illness onset. - Family history:: not pertinent. - Hospitalizations: : No recent hospitalization is reported. ROS: 10:57 Constitutional: Negative for fever, chills, and weight loss, Eyes: Negative for injury, rn pain, redness, and discharge, Neck: Negative for injury, pain, and swelling, Cardiovascular: Negative for chest pain, palpitations, and edema, Respiratory: + mild sob and cough with white sputum Abdomen/GI: Negative for abdominal pain, nausea, vomiting, diarrhea, and constipation, MS/Extremity: Negative for injury and deformity, Skin: Negative for injury, rash, and discoloration, Neuro: Negative for headache, weakness, numbness, tingling, and seizure. Exam: 10:57 Constitutional: This is a well developed, well nourished patient who is awake, alert, rn and in no acute distress. Head/Face: Normocephalic, atraumatic. Eyes: Pupils equal round and reactive to light, extra-ocular motions intact. Lids and lashes normal. Conjunctiva and sclera are non-icteric and not injected. Cornea within normal limits. Periorbital areas with no swelling, redness, or edema. ENT: MMM Cardiovascular: Regular rate and rhythm, No pulse deficits. Respiratory: Mild tachypnea, no retractions, no respiratory distress Abdomen/GI: soft, non-tender Skin: Warm, dry with normal turgor. Normal color with no rashes, no lesions, and no evidence of cellulitis. MS/ Extremity: Pulses equal, no cyanosis. Neurovascular intact. Full, normal range of motion. Equal circumference. Neuro: Awake and alert, GCS 15, oriented to person, place, time, and situation. Cranial nerves II-XII grossly intact. Motor strength 5/5 in all extremities. Sensory grossly intact. Vital Signs: 10:11 BP 117 / 88; Pulse 67; Resp 20; Temp 97.2(TE); Pulse Ox 100% on R/A; Weight 104.33 kg; hj Height 5 ft. 11 in. (180.34 cm); Pain 0/10; 11:30 BP 126 / 78; Pulse 68; Resp 18; Pulse Ox 99% on 2 lpm NC; Pain 0/10; hb 10:11 Body Mass Index 32.08 (104.33 kg, 180.34 cm) hj MDM: 10:04 Patient medically screened. rn 11:35 Differential diagnosis: CHF exacerbation, Chronic Obstructive Pulmonary Disease rn pneumonia, Pneumothorax pulmonary edema. Data reviewed: vital signs, nurses notes, lab test result(s), EKG, radiologic studies, plain films. Counseling: I had a detailed discussion with the patient and/or guardian regarding: the historical points, exam findings, and any diagnostic results supporting the discharge/admit diagnosis, lab results, radiology results, the need for outpatient follow up, to return to the emergency department if symptoms worsen or persist or if there are any questions or concerns that arise at home. Response to treatment: the patient's symptoms have markedly improved after treatment, and as a result, I will discharge patient. Special discussion: I discussed with the patient/guardian in detail that at this point there is no indication for admission to the hospital. It is understood, however, that if the symptoms persist or worsen the patient needs to return immediately for re-evaluation. Based on the history and exam findings, there is no indication for further emergent testing or inpatient evaluation. I discussed with the patient/guardian the need to see the firestopper technician for further evaluation of the symptoms. I discussed with the patient/guardian the need to see the primary care provider for further evaluation of the symptoms. I discussed with the patient/guardian the need to see the stem crusher for further evaluation of the symptoms. ED course: Patient still feels well, no oxygen requirement, mild pulmonary edema, also with hx of copd without daily meds, reports has trouble with inhalers. Advise to f/u with pcp/pulm/cardiology. . 03/26 10:22 Order name: CBC with Diff; Complete Time: 11:10 rn 03/26 10:22 Order name: Basic Metabolic Panel; Complete Time: 11:10 rn 03/26 10:22 Order name: PROBNP; Complete Time: 11:10 rn 03/26 10:22 Order name: XRAY Chest Pa And Lat (2 Views); Complete Time: 11:15 rn 03/26 10:22 Order name: IV Start; Complete Time: 11:33 rn 03/26 10:22 Order name: EKG - Nurse/Tech; Complete Time: 10:42 rn 03/26 10:22 Order name: EKG; Complete Time: 10:22 rn Administered Medications: 11:34 Drug: Lasix 40 mg Route: IVP; Site: left antecubital; hb 12:00 Follow up: Response: No adverse reaction hb 11:34 Drug: Xopenex 1.25 mg Route: Inhalation; hb 12:00 Follow up: Response: No adverse reaction hb Disposition: 03/26/18 11:38 Discharged to Home. Impression: Chronic pulmonary edema, Chronic obstructive pulmonary disease, unspecified. - Condition is Stable. - Discharge Instructions: Chronic Obstructive Pulmonary Disease, How to Use an Inhaler, Pulmonary Edema. - Prescriptions for Advair Diskus 500- 50 mcg/Dose Inhalation Disk with Device - inhale 1 puff by INHALATION route every 12 hours; 1 packet. - Medication Reconciliation Form, Thank You Letter, Antibiotic Education, Prescription Opioid Use form. - Follow up: Private Physician; When: As needed; Reason: Recheck today's complaints, Re-evaluation by your physician. - Problem is chronic. - Symptoms have improved. Signatures: Dispatcher [employer] EDSanta Chaney RN RN iw Nieto, Roman, MD MD rn Joaquin, Henry, RN RN hj Baxter, Heather, RN RN Corrections: (The following items were deleted from the chart) 12:00 11:38 03/26/2018 11:38 Discharged to Home. Impression: Chronic pulmonary edema; Chronic iw obstructive pulmonary disease, unspecified. Condition is Stable. Forms are Medication Reconciliation Form, Thank You Letter, Antibiotic Education, Prescription Opioid Use. Follow up: Private Physician; When: As needed; Reason: Recheck today's complaints, Re-evaluation by your physician. Problem is chronic. Symptoms have improved. rn
--- NOTE | 2018-03-26 11:39 | ER ---
Nurse's Notes [facility] Name: Valerio Berg Age: 67 yrs Sex: Male : 1950 Arrival Date: 03/26/2018 Time: 10:04 Bed 6 Private MD: Diagnosis: Chronic pulmonary edema;Chronic obstructive pulmonary disease, unspecified Presentation: 03/26 10:06 Presenting complaint: Patient states: they sent me here from [facility] while i was hj doing my exercises for eval of SOB; my SOB has been going on for years, i dont know why they sent me here, denies fever and chills; denies chest pain;. Transition of care: patient was not received from another setting of care. Onset of symptoms was March 26, 2018. Risk Assessment: Do you want to hurt yourself or someone else? Patient reports no desire to harm self or others. Initial Sepsis Screen: Does the patient meet any 2 criteria? No. Patient's initial sepsis screen is negative. Does the patient have a suspected source of infection? No. Patient's initial sepsis screen is negative. Care prior to arrival: None. 10:06 Method Of Arrival: Ambulatory 10:06 Acuity: ADRIÁN 3 hj Triage Assessment: 10:11 General: Appears in no apparent distress. uncomfortable, Behavior is calm, cooperative, hj appropriate for age. Respiratory: Reports shortness of breath Onset: The symptoms/episode began/occurred Historical: - Allergies: 10:10 Betadine; hj - Home Meds: 10:10 aspirin 81 mg Oral TbEC 1 tab once daily [Active]; hj - PMHx: 10:10 COPD; hj - PSHx: 10:10 CABG; Knee surgery; hip; hj - Immunization history:: Adult Immunizations up to date. - Social history:: Smoking status: Patient/guardian denies using tobacco, Patient/guardian denies using alcohol. - Ebola Screening: : Patient negative for fever greater than or equal to 101.5 degrees Fahrenheit, and additional compatible Ebola Virus Disease symptoms Patient denies exposure to infectious person Patient denies travel to an Ebola-affected area in the 21 days before illness onset. - Family history:: not pertinent. - Hospitalizations: : No recent hospitalization is reported. Screenin:10 Abuse screen: Denies threats or abuse. Denies injuries from another. Nutritional hj screening: No deficits noted. Tuberculosis screening: No symptoms or risk factors identified. Fall Risk None identified. Assessment: 10:11 Pain: Denies pain. Cardiovascular: Rhythm is. Respiratory: Airway is patent Respiratory hj effort is even, unlabored, Respiratory pattern is regular, symmetrical, Breath sounds are clear. 10:30 General: Appears in no apparent distress. Behavior is calm, cooperative. Pain: Denies hb pain. Neuro: Level of Consciousness is awake, alert, obeys commands, Oriented to person, place, time, situation. Cardiovascular: Capillary refill < 3 seconds Patient's skin is warm and dry. Respiratory: Airway is patent Trachea midline Respiratory effort is even, mildly labored Respiratory pattern is tachypnea Breath sounds are clear bilaterally. GI: No signs and/or symptoms were reported involving the gastrointestinal system. : No signs and/or symptoms were reported regarding the genitourinary system. EENT: No signs and/or symptoms were reported regarding the EENT system. Derm: Skin is intact, is healthy with good turgor. Musculoskeletal: No signs and/or symptoms reported regarding the musculoskeletal system. 11:30 Reassessment: Patient appears in no apparent distress at this time. No changes from previously documented assessment. Patient and/or family updated on plan of care and expected duration. Pain level reassessed. Vital Signs: 10:11 BP 117 / 88; Pulse 67; Resp 20; Temp 97.2(TE); Pulse Ox 100% on R/A; Weight 104.33 kg; hj Height 5 ft. 11 in. (180.34 cm); Pain 0/10; 11:30 BP 126 / 78; Pulse 68; Resp 18; Pulse Ox 99% on 2 lpm NC; Pain 0/10; hb 10:11 Body Mass Index 32.08 (104.33 kg, 180.34 cm) ED Course: 10:04 Patient arrived in ED. mr 10:04 Asa Cordoba MD is Attending Physician. rn 10:09 Triage completed. hj 10:11 Arm band placed on right wrist. hj 10:11 Patient has correct armband on for positive identification. Placed in gown. Bed in low hj position. Call light in reach. Side rails up X 1. 10:15 Hoa Lugo, APURVA is Primary Nurse. hb 10:32 EKG done, by phlebotomy services technician. reviewed by Asa Cordoba MD. sm3 10:44 Missed attempt(s): 22 gauge in right antecubital area. jb1 10:44 Initial lab(s) drawn, by me, sent to lab. jb1 10:44 Missed attempt(s): 22 gauge in left antecubital area. jb1 11:06 XRAY Chest Pa And Lat (2 Views) In Process Unspecified. EDMS 11:15 Inserted saline lock: 22 gauge in left antecubital area, using aseptic technique. hb 12:01 No provider procedures requiring assistance completed. hb 12:02 IV discontinued, intact, bleeding controlled, No redness/swelling at site. Pressure hb dressing applied. Administered Medications: 11:34 Drug: Lasix 40 mg Route: IVP; Site: left antecubital; hb 12:00 Follow up: Response: No adverse reaction hb 11:34 Drug: Xopenex 1.25 mg Route: Inhalation; hb 12:00 Follow up: Response: No adverse reaction hb Outcome: 11:38 Discharge ordered by . rn 12:00 Patient left the ED. iw 12:02 Discharged to home ambulatory. hb 12:02 Condition: stable 12:02 Discharge instructions given to patient, Instructed on discharge instructions, follow up and referral plans. medication usage, Demonstrated understanding of instructions, follow-up care, medications, Prescriptions given X 1. Signatures: Dispatcher [employer] EDMS RodriguesMaximo hollingsworth [email or web address] Dominga Choudhary [place], RN APURVA Asa Cordoba MD MD rn Joaquin, Henry, RN RN hj Baxter, Heather, RN RN Greta Oliver 3 Corrections: (The following items were deleted from the chart) 10:44 10:44 Missed attempt(s): 22 gauge in right jb1 jb1
--- NOTE | 2018-03-26 11:57 | EKG ---
Test Date: 2018-03-26 Test Time: 10:28:04 Emergency Department Director: JENNIFER MEASUREMENT RESULTS: Intervals: Rate: 68 OR: 168 QRSD: 138 QT: 448 QTc: 476 Kinder: P: 40 OR: 168 QRS: -54 T: 89 INTERPRETIVE STATEMENTS: Normal sinus rhythm Left axis deviation Right bundle branch block Abnormal ECG Compared to ECG 02/12/2018 16:47:23 Atrial premature complex(es) no longer present Myocardial infarct finding no longer present Electronically Signed On 03-26-18 11:57:07 TREATING MACHINE OPERATOR by Darci Hernandez
== END 2018-03-26 12:00 | disposition home or self-care (01) ==
LOC: ER 09:59
DX: J44.9 Chronic obstructive pulmonary disease, unspecified (principal); J81.1 Chronic pulmonary edema; Z79.82 Long term (current) use of aspirin; Z95.1 Presence of aortocoronary bypass graft; Z88.8 Allergy status to other drugs, medicaments and biological substances
CPT/HCPCS: 36415; 71046; 80048; 83880; 85025; 93005; 96374; 99284; J1940

== ENCOUNTER 2018-04-09 06:58 | Day surgery (SDC) | payer OTHER ==
[2018-04-05 16:16] LABS: Protime INR 1.03
[2018-04-05 16:26] LABS: Potassium 3.4 mmol/L (3.5-5.1)
[2018-04-09] MEDS ORDERED: ACETYLCYST 20% 800 MG/4 ML VIAL PO SCH (07:00)
--- OUTSIDE RECORDS SUMMARY | 2018-04-09 07:03 | XMS REPORT | Continuity of Care Document ---
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 Problem 07/03/2016 [facility] 13 CHEST PAIN, Active [facility] UNSPECIFIED Medications Medication Details Route Status Patient Ordering Order Source Instructions Provider Date lisinopril 2.5 2.5 mg=1 tab, PO, Active mg oral tablet Daily, # 30 tab, 2016 [facility] 0 Refill(s) AMIODarone 200 200 mg=1 tab, PO, Active mg oral tablet BID, please start 2016 [facility] this regimen after 1 week of 400 mg PO BID for 1 week, # 60 tab, 0 Refill(s) Acetaminophen 2 tab, PO, Q6H, Active 300 MG / PRN Pain Score 2016 [facility] Codeine 4-6, X 5 day, # Phosphate 30 MG 40 tab, 0 Oral Tablet Refill(s) [Tylenol with Codeine #3] 200 ACTUAT 2 puff, Active Albuterol 0.09 INHALATION, QID, 2016 [facility] MG/ACTUAT PRN for wheezing, Metered Dose # 25 gm, 0 Inhaler Refill(s) [Proventil] Advair Diskus 1 puff, Active 250 mcg-50 mcg INHALATION, BID, 2016 [facility] inhalation # 60 puff, 0 powder Refill(s) torsemide 10 mg 10 mg=1 tab, PO, Active oral tablet Daily, # 30 tab, 2016 [facility] 0 Refill(s) metoprolol 25 25 mg=1 tab, PO, Active mg oral tablet, Daily, # 30 tab, 2016 [facility] extended 0 Refill(s) release clopidogrel 75 75 mg=1 tab, PO, Active mg oral tablet Daily, # 30 tab, 2016 [facility] 0 Refill(s) atorvastatin 40 40 mg=1 tab, PO, Active mg oral tablet Bedtime, # 30 2016 [facility] tab, 0 Refill(s) aspirin 81 mg 81 mg=1 tab, PO, Active tablet, enteric Daily, # 100 tab, 2016 [facility] coated 0 Refill(s) 12 HR 600 mg=1 tab, PO, Active Guaifenesin 600 Q12H, PRN 2017 [facility] Extended Congestion, X 7 Release Tablet day, # 14 tab, 0 [Mucinex] Refill(s) Amiodarone 400 mg, 2 tab, Inactive Route: PO, Drug 2016 [facility] form: TAB, BID, Dosing Weight 111.384, kg, Priority: NOW, Start date: 06/30/16 7:15:00 CDT, Stop date: 07/14/16 17:00:00 CDTNotes: (Same as: Cordarone) torsemide 10 mg, 1 tab, No Longer Route: PO, Drug Active 2016 [facility] form: TAB, Daily, Dosing Weight 111.384, kg, Start date: 06/29/16 9:00:00 CDT, Duration: 30 day, Stop date: 07/28/16 9:00:00 CDTNotes: (Same As: Demadex) Amiodarone 200 mg, 1 tab, No Longer Route: PO, Drug Active 2016 [facility] form: TAB, TID, Dosing Weight 110.469, kg, Priority: NOW, Start date: 06/28/16 9:06:00 CDT, Duration: 30 day, Stop date: 07/28/16 9:00:00 CDTNotes: (Same as: Cordarone) metoprolol 25 mg, 1 tab, No Longer extended Route: PO, Drug Active 2016 [facility] release form: ERTAB, Daily, Start date: 06/28/16 9:00:00 CDT, Duration: 30 day, Stop date: 07/27/16 9:00:00 CDTNotes: (Same as: Toprol XL) Do Not Crush atorvastatin 40 mg, 1 tab, No Longer Route: PO, Drug Active 2016 [facility] form: TAB, Bedtime, Dosing Weight 103.653, kg, Start date: 06/27/16 21:00:00 CDT, Duration: 30 day, Stop date: 07/26/16 21:00:00 CDTNotes: (Same as: Lipitor) chlorhexidine 1 pkt, Route: No Longer gluconate 40 BATHE, Q-M-W-F, Active 2016 [facility] MG/ML Medicated Drug form: SOLN, Liquid Soap Start date: 06/27/16 9:00:00 CDT, Duration: 30 day, Stop date: 07/25/16 9:00:00 CDTNotes: (Same As: Danieliclewesley) Glucagon 1 mg, Route: IM, No Longer Drug form: Active 2016 [facility] PDR/INJ, PRN, Dosing Weight 103.653, kg, PRN Blood Glucose Results, Start date: 06/26/16 10:21:00 CDT, Duration: 30 day, Stop date: 07/26/16 10:20:00 CDT Dextrose 50% 25 gm, 50 mL, No Longer Syringe Route: IVP, Drug Active 2016 [facility] Form: INJ, Dosing Weight 103.653, kg, PRN, PRN Blood Glucose Results, Start date: 06/26/16 10:21:00 CDT, Duration: 30 day, Stop date: 07/26/16 10:20:00 CDT Insulin, 8 unit, 0.08 mL, No Longer Aspart, Human Route: SUB-Q, Active 2016 [facility] Drug form: SOLN, TID-Before Meals, Dosing Weight [...] 2 mL, Inactive Route: IVP, Drug 2016 [facility] form: INJ, ONCE, Dosing Weight 103.653, kg, Priority: NOW, Start date: 06/26/16 7:30:00 CDT, Stop date: 06/26/16 7:30:00 CDTNotes: (Same as: Lasix) albumin human 12.5 gm, 250 mL, Inactive 5% intravenous 250 ml/hr, Route: 2016 [facility] solution IV, Drug Form: INJ, Dosing Weight 103.653, kg, ONCE, Start date: 06/26/16 7:30:00 CDT, Stop date: 06/26/16 7:30:00 CDTNotes: LOT#: Mfg: ___ WASTE: F/P - Red; E -Red (Same as: Albuminar) "blood product derivative" glucagon 1 mg, Route: INJ, No Longer Drug form: Active 2016 [facility] PDR/INJ, PRN, PRN Blood Glucose Results, Start date: 06/25/16 22:17:00 CDT, Duration: 30 day, Stop date: 07/25/16 22:16:00 CDT Dextrose 50% in 50 mL, Route: No Longer Water IV IVP, Start date: Active 2016 [facility] 06/25/16 22:17:00 CDT, Duration: 30 day, Stop date: 07/25/16 22:16:00 CDT, PRN Blood Glucose Results insulin aspart 10 unit, 0.1 mL, No Longer Route: SUB-Q, Active 2016 [facility] Drug form: SOLN, Sliding Scale, PRN Blood [...] No Longer Route: PO, Drug Active 2016 [facility] form: TAB, Bedtime, Dosing Weight 103.653, kg, Start date: 06/25/16 21:00:00 CDT, Duration: 30 day, Stop date: 07/24/16 21:00:00 CDTNotes: (Same As: Lipitor) Lovenox 40 mg, 0.4 mL, No Longer Route: SUB-Q, Active 2016 [facility] Drug form: INJ, [id number], Dosing Weight 103.653, kg, Start date: 06/25/16 20:00:00 CDT, Duration: 30 day, Stop date: 07/24/16 20:00:00 CDTNotes: (Same as: Lovenox) Dilaudid 0.5 mg, 0.5 mL, Inactive Route: IVP, Drug 2016 [facility] form: INJ, ONCE, Dosing Weight 103.653, kg, Priority: STAT, Start date: 06/25/16 18:54:00 CDT, Stop date: 06/25/16 18:54:00 CDT pantoprazole 40 mg, 1 tab, Inactive Route: PO, Drug 2016 [facility] form: ECTAB, Daily, Dosing Weight 103.653, kg, Start date: 06/25/16 9:00:00 CDT, Duration: 30 day, Stop date: 07/24/16 9:00:00 CDTNotes: Tablet should not be chewed or crushed. (Same as: Protonix) Mupirocin 0.02 1 appl, Route: No Longer MG/MG Topical NASAL, BID, Drug Active 2016 [facility] Ointment form: OINT, Start date: 06/25/16 9:00:00 CDT, Duration: 5 day, Stop date: 06/29/16 17:00:00 CDT clopidogrel 75 mg, 1 tab, No Longer Route: PO, Drug Active 2016 [facility] form: TAB, Daily, Dosing Weight 102.926, kg, Start date: 06/25/16 9:00:00 CDT, Duration: 30 day, Stop date: 07/24/16 9:00:00 CDTNotes: (Same As: Plavix) Aspirin 325 MG 325 mg, Route: No Longer Enteric Coated PO, Drug form: Active 2016 [facility] Tablet ECTAB, Daily, Dosing Weight 102.926, kg, Start date: 06/25/16 9:00:00 CDT, Duration: 30 day, Stop date: 07/24/16 9:00:00 CDT heparin 5,000 unit, 1 mL, Inactive Route: SUB-Q, 2016 [facility] Drug form: INJ, Q8H, Dosing Weight 103.653, kg, Start date: 06/25/16 8:00:00 CDT, Duration: 30 day, Stop date: 07/25/16 0:00:00 CDTNotes: porcine heparin vancomycin 1.5 gm, 250 mL, Inactive Route: IVPB, Drug 2016 [facility] form: INJ, [id number], Start date: 06/25/16 1:30:00 CDT, Duration: 2 doses or times, Stop date: 06/25/16 13:30:00 CDTNotes: TIME CRITICAL MEDICATION Same as: Vancocin-NS (premixed) Infusion rate 2001 mg: infuse over 2.5 hours cefuroxime + 1.5 gm, Route: Inactive sodium chloride IVPB, ABXQ8H, 2016 [facility] 0.9% INJ 100 mL Dosing Weight 103.653, kg, Start date: 06/25/16 1:00:00 CDT, Duration: 3 doses or times, Stop date: 06/25/16 17:00:00 CDTNotes: (Same As: Kefurox, Zinacef) MEDICATION WASTE Product Size: 1500 mg Product Wasted: ___ mg Vancomycin 1,554.795 mg, Inactive Route: IVPB, Drug 2016 [facility] form: INJ, Q12H, Dosing Weight 103.653, kg, Time Critical Medication, Start date: 06/24/16 21:00:00 CDT, Duration: 2 doses or times, Stop date: 06/25/16 9:00:00 CDT chlorhexidine 15 ml, Route: No Longer gluconate 1.2 S&SPIT, Q12H, Active 2016 [facility] MG/ML Mouthwash Drug form: LIQ, Start date: 06/24/16 21:00:00 CDT, Duration: 2 week, Stop date: 07/08/16 9:00:00 CDTNotes: (Same As: Peridex) Aspirin 325 MG 325 mg, 1 tab, No Longer Oral Tablet Route: NG, Drug Active 2016 [facility] form: TAB, Daily, Dosing Weight 102.926, kg, Start date: 06/24/16 21:00:00 CDT, Duration: 30 day, Stop date: 07/24/16 9:00:00 CDTNotes: Take with food. EPINEPHrine 4 246 mL, Rate: No Longer mg + sodium Titrate, Route: Active 2016 [facility] chloride 0.9% IV, Dosing Weight INJ 246 mL 103.653 kg, Total Volume: 250, Start date: 06/24/16 18:38:00 CDT, Duration: 30 day, Stop date: 07/24/16 18:37:00 CDTNotes: (Same as: Adrenalin) Suremed - Injectable drug used as inhalation treatment. MEDICATION WASTE Product Size: 1 mg Product Wasted: ___ mg insulin aspart 14 unit, 0.14 mL, No Longer Route: SUB-Q, Active 2016 [facility] Drug form: SOLN, Sliding Scale, PRN Abnormal [...] mL, No Longer Route: SUB-Q, Active 2016 [facility] Drug form: SOLN, Sliding Scale, PRN Abnormal [...] Longer unit-NS 100mL Rate: Titrate, Active 2016 [facility] 100 unit Dosing Weight 103.653, kg, Route: IV, Total Volume: 100, Start Date: 06/24/16 18:35:00 CDT, Duration: 30 day, Stop date: 07/24/16 18:34:00 CDT, Replace Every: 24 hrNotes: Final Concentration 1unit/1ml WASTE: F/P - Black; E - Municipal Trash Bin insulin reg 100 100 unit, 100 mL, Inactive unit-NS 100mL Rate: Titrate, 2016 [facility] 100 unit Dosing Weight 103.653, kg, Route: IV, Total Volume: 100, Start Date: 06/24/16 18:34:00 CDT, Duration: 30 day, Stop date: 07/24/16 18:33:00 CDT, Replace Every: 24 hrNotes: Final Concentration 1unit/1ml WASTE: F/P - Black; E - Municipal Trash Bin albuterol 2.49 mg, 3 mL, No Longer Route: NEB, Drug Active 2016 [facility] form: SOLN, PRN, PRN Respiratory Protocol, Start date: 06/24/16 18:16:00 CDT, Stop date: 07/24/16 18:15:00 CDTNotes: SEE RT DOCUMENTATION (Same as: Proventil) Fentanyl 600 microgram, 30 No Longer mL, Route: IV, Active 2016 [facility] [employer] SUPERINTENDENT Dose: 10 mcg, [employer] SUPERINTENDENT Lockout: 10 minutes, Continuous Basal Rate: 0 mg, 4 Hour Limit (In MCG): 240, Drug Form: INJ, Continuous, Start date: 06/24/16 18:00:00 CDT, Duration: 30 day, Stop date: 07/24/16 17:59:00 CDTNotes: Concentration is 20 micrograms/ml metoprolol 12.5 mg, 0.5 tab, No Longer tartrate Route: PO, Drug Active 2016 [facility] form: TAB, Q6H, Dosing Weight 102.926, kg, Start date: 06/24/16 18:00:00 CDT, Duration: 30 day, Stop date: 07/24/16 12:00:00 CDTNotes: (Same as: Lopressor) Cefuroxime 1.5 gm, Route: Inactive IVPB, ABXQ8H, 2016 [facility] Dosing Weight 103.653, kg, Start date: 06/24/16 18:00:00 CDT, Duration: 3 doses or times, Stop date: 06/25/16 10:00:00 CDTNotes: (Same As: Kefurox, Zinacef) MEDICATION WASTE Product Size: 1500 mg Product Wasted: ___ mg PHOS-NaK 2 pkt, Route: PO, No Longer Drug Form: Active 2016 [facility] PDR/REC, Dosing Weight 103.653, kg, PRN, PRN Abnormal Lab Result, FOR ICU USE ONLY, Start date: 06/24/16 17:44:00 CDT, Duration: 30 day, Stop date: 07/24/16 17:43:00 CDTNotes: (Same as: Phos-NaK) Each 1.5 gm pkt has 250mg phosphorous. Mix w/2.5oz water and stir. potassium 45 mmol, 15 mL, No Longer phosphate + Route: IVPB, PRN, Active 2016 [facility] sodium chloride Dosing Weight 0.9% INJ 250 mL 103.653, kg, PRN Abnormal Lab Result, Start date: 06/24/16 17:44:00 CDT, Duration: 30 day, Stop date: 07/24/16 17:43:00 CDT, FOR ICU USE ONLYNotes: (Same as: K Phosphate.) 1 mMol phoshate has 1.47 mEq potassium Infuse over 4 hours Calcium 1 gm, 50 mL, No Longer Gluconate Route: IVPB, Drug Active 2016 [facility] form: INJ, PRN, Dosing Weight 103.653, kg, PRN Abnormal Lab Result, Start date: 06/24/16 17:44:00 CDT, Duration: 30 day, Stop date: 07/24/16 17:43:00 CDT, FOR ICU USE ONLYNotes: WASTE: F/P - Sink; E - Municipal Trash Bin Magnesium Oxide 800 mg, 2 tab, No Longer Route: PO, Drug Active 2016 [facility] form: TAB, PRN, Dosing Weight 103.653, kg, PRN Abnormal Lab Result, FOR ICU USE ONLY, Start date: 06/24/16 17:44:00 CDT, Duration: 30 day, Stop date: 07/24/16 17:43:00 CDTNotes: (Same as: Mag-Ox 400) Magnesium oxide [id number] elemental magnesium Dose=____mg magnesium oxide (___mg elemental magnesium) Magnesium 2 gm, 50 mL, No Longer Sulfate Route: IVPB, Drug Active 2016 [facility] form: INJ, PRN, Dosing Weight 103.653, kg, PRN Abnormal Lab Result, Start date: 06/24/16 17:44:00 CDT, Duration: 30 day, Stop date: 07/24/16 17:43:00 CDT, FOR ICU USE ONLYNotes: WASTE: F/P - Sink; E - Municipal Trash Bin potassium 20 mEq, 15 mL, No Longer chloride Route: NJ, Drug Active 2016 [facility] form: LIQ, PRN, Dosing Weight 103.653, kg, PRN Abnormal Lab Result, Start date: 06/24/16 17:44:00 CDT, Duration: 30 day, Stop date: 07/24/16 17:43:00 CDT, FOR ICU USE ONLYNotes: (Same as: Potassium Chloride) Calcium 1,000 mg, 2 tab, No Longer Carbonate 500 Route: CHEW, Drug Active 2016 [facility] Chewable form: CHEWTAB, Tablet PRN, Dosing Weight 103.653, kg, PRN Abnormal Lab Result, FOR ICU USE ONLY, Start date: 06/24/16 17:44:00 CDT, Duration: 30 day, Stop date: 07/24/16 17:43:00 CDTNotes: (Same As: Tums) Calcium Carbonate 500 [id number] mg elemental calcium Dose= mg calcium carbonate ( mg elemental calcium) Insulin, 3 unit, 0.03 mL, Inactive Aspart, Human Route: SUB-Q, 2016 [facility] Drug form: SOLN, TID-Before Meals, Dosing Weight [...] phosphate + Route: IVPB, PRN, Active 2016 [facility] sodium chloride Dosing Weight 0.9% INJ 250 mL 103.653, kg, PRN Abnormal Lab Result, Start date: 06/24/16 17:44:00 CDT, Duration: 30 day, Stop date: 07/24/16 17:43:00 CDT, FOR ICU USE ONLY potassium 15 mmol, 250 mL, No Longer phosphate Route: IVPB, Drug Active 2016 [facility] form: INJ, PRN, Dosing Weight 103.653, kg, PRN Abnormal Lab Result, Start date: 06/24/16 17:44:00 CDT, Duration: 30 day, Stop date: 07/24/16 17:43:00 CDT, FOR ICU USE ONLYNotes: (Same as: K Phosphate) sodium 15 mmol, 250 mL, No Longer phosphate Route: IVPB, Drug Active 2016 [facility] form: INJ, PRN, Dosing Weight 103.653, kg, PRN Abnormal Lab Result, Start date: 06/24/16 17:44:00 CDT, Duration: 30 day, Stop date: 07/24/16 17:43:00 CDT, FOR ICU USE ONLY Naloxone 0.04 mg, 0.1 mL, No Longer Route: IVP, Drug Active 2016 [facility] form: INJ, Q2MIN, Dosing Weight 103.653, kg, PRN Narcotic Reversal, Start date: 06/24/16 17:44:00 CDT, Duration: 30 day, Stop date: 07/24/16 17:43:00 CDTNotes: Same as Narcan Saline Flush 10 ml, Route: No Longer 0.9% IVP, Drug Form: Active 2016 [facility] INJ, Dosing Weight 103.653, kg, PRN, PRN Line Flush, Start date: 06/24/16 17:44:00 CDT, Duration: 30 day, Stop date: 07/24/16 17:43:00 CDTNotes: (Same as: BD Posiflush) Dulcolax 10 mg, 1 supp, No Longer Laxative Route: SD, Drug Active 2016 [facility] form: SUPP, Daily, Dosing Weight 102.926, kg, PRN Constipation, Start date: 06/24/16 17:44:00 CDT, Duration: 30 day, Stop date: 07/24/16 17:43:00 CDTNotes: (Same As: Dulcolax, Bisco-Lax) Lactulose 667 20 gm, 30 mL, No Longer MG/ML Oral Route: PO, Drug Active 2016 [facility] Solution form: SYRP, Daily, Dosing Weight 102.926, kg, PRN as needed for constipation, Start date: 06/24/16 17:44:00 CDT, Duration: 30 day, Stop date: 07/24/16 17:43:00 CDTNotes: (Same as:Chronulac) albumin human 12.5 gm, 250 mL, No Longer 5% intravenous 500 ml/hr, Route: Active 2016 [facility] solution IVPB, Drug Form: INJ, Dosing Weight 102.926, kg, ONCE, PRN Hypotension, Start date: 06/24/16 17:44:00 CDTNotes: LOT#: Mfg: ___ WASTE: F/P - Red; E -Red (Same as: Albuminar) "blood product derivative" Acetaminophen 1 tab, Route: PO, No Longer 300 MG / Drug Form: TAB, Active 2016 [facility] Codeine Dosing Weight Phosphate 30 MG 102.926, kg, Q6H, Oral Tablet PRN Pain Score [Tylenol with 1-3, Start date: Codeine #3] 06/24/16 17:44:00 CDT, Duration: 30 day, Stop date: 07/24/16 17:43:00 CDTNotes: Do not exceed 4gm/day of acetaminophen. (Same as: Tylenol with Codeine # 3) Zofran 4 mg, 2 mL, No Longer Route: IVP, Drug Active 2016 [facility] form: INJ, Q8H, Dosing Weight 102.926, kg, PRN Nausea, Start date: 06/24/16 17:44:00 CDT, Duration: 30 day, Stop date: 07/24/16 17:43:00 CDTNotes: (Same as: Zofran) MEDICATION WASTE Product Size: 4 mg Product Wasted: ___ mg Xopenex 1.25 mg, Route: Inactive NEB, PRN, Dosing 2016 [facility] Weight 102.926, kg, PRN Respiratory Protocol, Start date: 06/24/16 17:44:00 CDT, Duration: 30 day, Stop date: 07/24/16 17:43:00 CDT Morphine 8 mg, 2 mL, No Longer Route: IM, Drug Active 2016 [facility] form: INJ, Q3H, Dosing Weight 102.926, kg, PRN Pain Score 7-10, Start date: 06/24/16 17:44:00 CDT, Duration: 30 day, Stop date: 07/24/16 17:43:00 CDTNotes: (Same as:MORPhine Sulfate) Albuterol 0.833 3 ml, Route: NEB, No Longer MG/ML / Drug Form: SOLN, Active 2016 [facility] Ipratropium Dosing Weight Adams 0.167 103.653, kg, PRN, MG/ML Inhalant PRN Respiratory Solution Protocol, Start date: 06/24/16 17:44:00 CDT, Duration: 30 day, Stop date: 07/24/16 17:43:00 CDTNotes: (Same as: Duoneb) Glucagon 1 mg, Route: IM, No Longer Drug form: Active 2016 [facility] PDR/INJ, PRN, Dosing Weight 103.653, kg, PRN Blood Glucose Results, Start date: 06/24/16 17:44:00 CDT, Duration: 30 day, Stop date: 07/24/16 17:43:00 CDT Nitroglycerin 0.4 mg, 1 tab, No Longer Route: SL, Drug Active 2016 [facility] form: TAB, Q5Min, Dosing Weight 103.653, kg, PRN Chest Pain, Start date: 06/24/16 17:44:00 CDT, Duration: 3 doses or times, Stop date: Limited # of timesNotes: (Same as:Nitroquick, Nitrostat) "Do Not Crush" Sublingual tablet Docusate 100 mg, 1 cap, No Longer Route: PO, Drug Active 2016 [facility] form: CAP, BID, Dosing Weight 103.653, kg, PRN Constipation, Start date: 06/24/16 17:44:00 CDT, Duration: 30 day, Stop date: 07/24/16 17:43:00 CDTNotes: (Same as: Colace) (Do Not Crush) Ondansetron 4 mg, 2 mL, Inactive Route: IVP, Drug 2016 [facility] form: INJ, Q8H, Dosing Weight 103.653, kg, PRN Nausea & Vomiting, Start date: 06/24/16 17:44:00 CDT, Duration: 30 day, Stop date: 07/24/16 17:43:00 CDTNotes: (Same as: Zofran) MEDICATION WASTE Product Size: 4 mg Product Wasted: ___ mg Dextrose 50% 25 gm, 50 mL, No Longer Syringe Route: IVP, Drug Active 2016 [facility] Form: INJ, Dosing Weight 103.653, kg, PRN, PRN Blood Glucose Results, Start date: 06/24/16 17:44:00 CDT, Duration: 30 day, Stop date: 07/24/16 17:43:00 CDT Acetaminophen 650 mg, 2 tab, No Longer Route: PO, Drug Active 2016 [facility] form: TAB, Q4H, Dosing Weight 103.653, kg, PRN Pain 1-3/Temp > 100.4 F, Start date: 06/24/16 17:44:00 CDT, Duration: 30 day, Stop date: 07/24/16 17:43:00 CDTNotes: Do not exceed 4 gm/day. (Same as: Tylenol) vasopressin Route: IV, Drug Inactive 06/24/ MH (ANES) form: INJ, ONCE, 2016 [facility] Stop date: 06/24/16 17:40:00 CDT ondansetron Route: IV, Drug Inactive 06/24/ MH (ANES) form: INJ, ONCE, 2016 Stop date: 06/24/16 17:23:00 CDT protamine Route: IV, Drug Inactive 06/24/ MH (ANES) form: INJ, ONCE, 2016 [facility] Stop date: 06/24/16 17:03:00 CDT calcium Route: IV, Drug Inactive MH chloride (ANES) form: INJ, ONCE, 2016 [facility] Stop date: 06/24/16 16:48:00 CDT nitroglycerin Route: IV, Drug Inactive MH (ANES) form: INJ, ONCE, 2016 Stop date: 06/24/16 15:17:00 CDT heparin (ANES) Route: IV, Drug Inactive form: INJ, ONCE, 2016 [facility] Stop date: 06/24/16 15:07:00 CDT fentaNYL (ANES) Route: IV, Drug Inactive MH form: INJ, ONCE, 2016 [facility] Stop date: 06/24/16 14:31:00 CDT ePHEDrine Route: [...] Inactive 06/24/ MH form: INJ, ONCE, 2016 [facility] Stop date: 06/24/16 14:06:00 CDT Amicar (ANES) Route: IV, Drug Inactive MH (ANES) + form: INJ, Dosing 2016 [facility] Weight 103.7, kg, Start date: 06/24/16 13:35:00 CDT, Stop date: 06/24/16 14:35:00 CDT vancomycin Route: IV, Drug Inactive 06/24/ MH (ANES) (ANES) form: INJ, Start 2016 [facility] date: 06/24/16 13:29:00 CDT, Stop date: 06/24/16 14:29:00 CDT midazolam Route: IV, Drug Inactive MH (ANES) form: SOLN, ONCE, 2016 [facility] Stop date: 06/24/16 13:11:00 CDT morphine Route: IV, Drug Inactive MH Sulfate (ANES) form: INJ, ONCE, 2016 [facility] Stop date: 06/24/16 13:11:00 CDT Isolyte S (PH Route: IV, Total Inactive MH 7.4) 1000 mL Volume: 1,000, 2016 [facility] (ANES) Start date: 06/24/16 12:39:00 CDT, Stop date: 06/24/16 13:39:00 CDT sodium chloride 1,000 mL, Rate: No Longer MH 0.9% 1000 ml 125 ml/hr, Infuse Active 2016 [facility] INJ 1,000 mL over: 8 hr, Route: IV, Dosing Weight 99.563 kg, Total Volume: 1,000, Start date: 06/22/16 7:35:00 CDT, Duration: 30 day, Stop date: 07/22/16 7:34:00 CDT Sodium Chloride 250 mL, 250 Inactive MH 0.154 MEQ/ML ml/hr, Infuse 2017 [facility] Injectable Over: 1 hr, Solution Route: IV, 250, Drug form: INJ, ONCE, Priority: STAT, Dosing Weight 99.563 kg, Start date: 06/22/16 7:34:00 CDT, Duration: 1 doses or times, Stop date: 06/22/16 7:34:00 CDT sodium chloride 1,000 mL, Rate: Inactive 06/22/ MH 0.9% 1000 ml 125 ml/hr, Infuse 2017 [facility] INJ 1,000 mL over: 8 hr, Route: IV, Dosing Weight 99.563 kg, Total Volume: 1,000, Start date: 06/22/16 7:19:00 CDT, Duration: 30 day, Stop date: 07/22/16 7:18:00 CDT Lopressor 50 mg, 1 tab, No Longer Route: PO, Drug Active 2016 [facility] form: TAB, BID, Dosing Weight 102.926, kg, Start date: 06/19/16 18:00:00 CDT, Duration: 30 day, Stop date: 07/19/16 17:00:00 CDTNotes: (Same as: Lopressor) Lopressor 50 mg, 1 tab, Inactive Route: PO, Drug 2016 [facility] form: TAB, Q8Hnow, Dosing Weight 102.926, kg, Start date: 06/19/16 17:00:00 CDT, Duration: 30 day, Stop date: 07/19/16 9:00:00 CDTNotes: (Same as: Lopressor) Levemir 10 unit, 0.1 mL, No Longer Route: SUB-Q, Active 2016 [facility] Drug form: INJ, Bedtime, Dosing Weight 102.926, kg, Start date: 06/17/16 21:00:00 CDT, Duration: 30 day, Stop date: 07/16/16 21:00:00 CDTNotes: Same as Levemir Do not hold insulin without contacting prescriber WASTE: F/P - Black; E - [facility] "single patient use only" Saline Flush 10 ml, Route: No Longer 0.9% IVP, Drug Form: Active 2016 [facility] INJ, Dosing Weight 102.926, kg, Q12H, Start date: 06/17/16 21:00:00 CDT, Duration: 30 day, Stop date: 07/17/16 9:00:00 CDTNotes: (Same as: BD Posiflush) chlorhexidine 15 ml, Route: No Longer gluconate 1.2 S&SPIT, BID, Drug Active 2016 [facility] MG/ML Mouthwash form: LIQ, Start date: 06/17/16 20:00:00 CDT, Duration: 30 day, Stop date: 07/17/16 17:00:00 CDTNotes: (Same As: Peridex) Cefazolin 2 gm, 100 mL, No Longer Route: IVPB, Drug Active 2016 [facility] form: INJ, ONCALL, Dosing Weight 102.926, kg, Start date: 06/17/16 19:00:00 CDT, Duration: 30 day, Stop date: 07/17/16 18:59:00 CDTNotes: Same as: Ancef Mupirocin 0.02 1 appl, Route: No Longer MG/MG Topical NASAL, ONCALL, Active 2016 [facility] Ointment Drug form: OINT, Start date: 06/17/16 19:00:00 CDT, Duration: 30 day, Stop date: 07/17/16 18:59:00 CDT sodium chloride 250 mL, Rate: On No Longer 0.9% INJ 250 mL call for use with Active 2016 [facility] blood product administration, Dosing Weight 102.926, kg, Route: IV, Total Volume: 250, Start Date: 06/17/16 18:54:00 CDT, Duration: 30 day, Stop date: 07/17/16 18:53:00 CDT, Replace Every: 24 hr Saline Flush 10 ml, Route: No Longer 0.9% IVP, Drug Form: Active 2016 [facility] INJ, Dosing Weight 102.926, kg, PRN, PRN Line Flush, Start date: 06/17/16 18:54:00 CDT, Duration: 30 day, Stop date: 07/17/16 18:53:00 CDTNotes: (Same as: BD Posiflush) metoprolol 12.5 mg, Route: Inactive tartrate PO, Drug form: 2016 [facility] TAB, Q12H, Dosing Weight 102.926, kg, Priority: NOW, Start date: 06/17/16 18:54:00 CDT, Duration: 30 day, Stop date: 07/17/16 9:00:00 CDT Nitroglycerin 1 inch, Route: No Longer 0.02 MG/MG TOP, Drug Form: Active 2016 [facility] Topical OINT, Dosing Ointment Weight 102.926, kg, Q6H, Start date: 06/17/16 12:00:00 CDT, Duration: 30 day, Stop date: 07/17/16 6:00:00 CDTNotes: 1 gram is approximately 1 inch of nitroglycerin ointment (20 mg NTG per gram) (Same as:Nitro-Bid) Enoxaparin 100 mg, 1 mL, No Longer Route: SUB-Q, Active 2016 [facility] Drug form: INJ, [id number], Dosing Weight 102.926, kg, Start date: 06/17/16 9:00:00 CDT, Duration: 30 day, Stop date: 07/16/16 21:00:00 CDTNotes: Nurse to ensure documentation of patient education per anticoagulation policy. (Same as: Lovenox) Albuterol 0.833 3 mL, Route: NEB, No Longer MG/ML / Drug Form: SOLN, Active 2016 [facility] Ipratropium Dosing Weight Adams 0.167 102.926, kg, MG/ML Inhalant RQ6H, Start date: Solution 06/16/16 20:00:00 [DuoNeb] CDT, Duration: 30 day, Stop date: 07/16/16 14:00:00 CDTNotes: (Same as: Duoneb) Budesonide 0.25 0.5 mg, 2 mL, No Longer MG/ML Inhalant Route: NEB, Drug Active 2016 [facility] Solution form: SUSP, [Pulmicort] RQ12H, Dosing Weight 102.926, kg, Start date: 06/16/16 18:32:00 CDT, Duration: 30 day, Stop date: 07/16/16 16:00:00 CDTNotes: (Same As: Pulmicort) Solu-Medrol 80 mg, 1.28 mL, Inactive Route: IVP, Drug 2016 [facility] form: INJ, ONCE, Dosing Weight 102.926, kg, Start date: 06/16/16 18:12:00 CDT, Stop date: 06/16/16 18:12:00 CDTNotes: (Same as:Solu-MEDROL, A-Methapred) Lovenox 100 mg, 1 mL, Inactive Route: SUB-Q, 2016 [facility] Drug form: INJ, ONCE, Dosing Weight 102.926, kg, Start date: 06/16/16 18:00:00 CDT, Stop date: 06/16/16 18:00:00 CDTNotes: Nurse to ensure documentation of patient education per anticoagulation policy. (Same as: Lovenox) Sodium Chloride 250 mL, 250 No Longer 0.154 MEQ/ML ml/hr, Infuse Active 2016 [facility] Injectable Over: 1 hr, Solution Route: IV, 250, Drug form: INJ, ONCALL, Priority: Routine, Dosing Weight 102.926 kg, Start date: 06/16/16 17:00:00 CDT, Duration: 1 doses or times Sodium Chloride 750 mL, Rate: 75 Inactive 0.154 MEQ/ML ml/hr, Infuse 2016 [facility] Injectable over: 10 hr, Solution Route: IV, Dosing Weight 102.926 kg, Total Volume: 750, Start date: 06/16/16 16:15:00 CDT, Stop date: 06/17/16 16:14:00 CDT acetaminophen-c 1 tab, Route: PO, No Longer odeine #3 Drug Form: TAB, Active 2016 [facility] Dosing Weight 102.926, kg, Q4H, PRN Pain Score 4-6, Start date: 06/16/16 16:11:00 CDT, Duration: 30 day, Stop date: 07/16/16 16:10:00 CDTNotes: Do not exceed 4gm/day of acetaminophen. (Same as: Tylenol with Codeine # 3) Acetaminophen 650 mg, 2 tab, No Longer Route: PO, Drug Active 2016 [facility] form: TAB, Q4H, Dosing Weight 102.926, kg, [...] 0.9% IV IVPB, Start date: Active 2016 [facility] 06/16/16 15:49:00 CDT, Duration: 30 day, Stop date: 07/16/16 15:48:00 CDT, PRN Line Flush Dextrose 50% 25 gm, 50 mL, No Longer Syringe Route: IVP, Drug Active 2016 [facility] Form: INJ, Dosing Weight 102.926, kg, PRN, PRN Blood Glucose Results, Start date: 06/16/16 15:45:00 CDT, Duration: 30 day, Stop date: 07/16/16 15:44:00 CDT Insulin, 5 unit, 0.05 mL, No Longer Aspart, Human Route: SUB-Q, Active 2016 [facility] Drug form: SOLN, TID-Before Meals, Dosing Weight [...] IM, No Longer Drug form: Active 2016 [facility] PDR/INJ, PRN, Dosing Weight 102.926, kg, PRN Blood Glucose Results, Start date: 06/16/16 15:45:00 CDT, Duration: 30 day, Stop date: 07/16/16 15:44:00 CDT Sodium Chloride 1,000 mL, Rate: Inactive 0.154 MEQ/ML 100 ml/hr, Infuse 2016 [facility] Injectable over: 10 hr, Solution Route: IV, Dosing Weight 102.926 kg, Total Volume: 1,000, Start date: 06/16/16 9:19:00 CDT, Duration: 30 day, Stop date: 07/16/16 9:18:00 CDT aspirin 81 mg 81 mg, 1 tab, No Longer tablet, enteric Route: PO, Drug Active 2016 [facility] coated form: ECTAB, Daily, Dosing Weight 102.926, kg, Start date: 06/16/16 9:00:00 CDT, Duration: 30 day, Stop date: 07/15/16 9:00:00 CDTNotes: Do not crush or chew. (Same As: Ecotrin) Nitroglycerin 0.5 inch, Route: Inactive 0.02 MG/MG TOP, Drug Form: 2016 [facility] Topical OINT, Dosing Ointment Weight 102.926, kg, TID, Start date: 06/16/16 6:00:00 CDT, Duration: 30 day, Stop date: 07/15/16 18:00:00 CDTNotes: 1 gram is approximately 1 inch of nitroglycerin ointment (20 mg NTG per gram) (Same as:Nitro-Bid) metoprolol 50 mg, 1 tab, No Longer tartrate Route: PO, Drug Active 2016 [facility] form: TAB, Q8H, Dosing Weight 102.926, kg, Start date: 06/16/16 0:00:00 CDT, Duration: 30 day, Stop date: 07/15/16 16:00:00 CDTNotes: (Same as: Lopressor) Sodium Chloride 250 mL, 250 Inactive 0.154 MEQ/ML ml/hr, Infuse 2016 [facility] Injectable Over: 1 hr, Solution Route: IV, 250, Drug form: INJ, ONCALL, Priority: Routine, Dosing Weight 102.926 kg, Start date: 06/15/16 22:00:00 CDT, Duration: 1 doses or times Sodium Chloride 750 mL, Rate: 75 No Longer 0.154 MEQ/ML ml/hr, Infuse Active 2016 [facility] Injectable over: 10 hr, Solution Route: IV, Dosing Weight 102.926 kg, Total Volume: 750, Start date: 06/15/16 21:02:00 CDT, Duration: 24 hr, Stop date: 06/16/16 21:01:00 CDT Saline Flush 10 ml, Route: No Longer 0.9% IVP, Drug Form: Active 2016 [facility] INJ, Dosing Weight 102.926, kg, Q12H, Start date: 06/15/16 21:00:00 CDT, Duration: 30 day, Stop date: 07/15/16 9:00:00 CDTNotes: (Same as: BD Posiflush) atorvastatin 40 mg, 1 tab, No Longer Route: PO, Drug Active 2016 [facility] form: TAB, Bedtime, Dosing Weight 102.926, kg, Start date: 06/15/16 21:00:00 CDT, Duration: 30 day, Stop date: 07/14/16 21:00:00 CDTNotes: (Same as: Lipitor) metoprolol 25 mg, Route: PO, Inactive tartrate Drug form: TAB, 2016 [facility] Q12H, Dosing Weight 102.926, kg, Start date: 06/15/16 21:00:00 CDT, Duration: 30 day, Stop date: 07/15/16 9:00:00 CDT Enoxaparin 100 mg, 1 mL, No Longer Route: SUB-Q, Active 2016 [facility] Drug form: INJ, [id number], Dosing Weight 102.926, kg, Start date: 06/15/16 19:00:00 CDT, Duration: 30 day, Stop date: 07/15/16 7:00:00 CDTNotes: Nurse to ensure documentation of patient education per anticoagulation policy. (Same as: Lovenox) Albuterol 0.833 3 ml, Route: NEB, No Longer MG/ML / Drug Form: SOLN, Active 2016 [facility] Ipratropium Dosing Weight Adams 0.167 102.926, kg, PRN, MG/ML Inhalant PRN Respiratory Solution Protocol, Start [DuoNeb] date: 06/15/16 13:56:00 CDT, Duration: 30 day, Stop date: 07/15/16 13:55:00 CDTNotes: (Same as: Duoneb) Saline Flush 10 ml, Route: No Longer 0.9% IVP, Drug Form: Active 2016 [facility] INJ, Dosing Weight 102.926, kg, PRN, PRN Line Flush, Start date: 06/15/16 13:52:00 CDT, Duration: 30 day, Stop date: 07/15/16 13:51:00 CDTNotes: (Same as: BD Posiflush) Labetalol 20 mg, 4 mL, No Longer Route: IVP, Drug Active 2016 [facility] form: INJ, Q4H, Dosing Weight 102.926, kg, PRN Hypertension, Start date: 06/15/16 13:52:00 CDT, Duration: 30 day, Stop date: 07/15/16 13:51:00 CDT, for SBP>180 or DBP>110, hold if HRNotes: (Same as: Normodyne, Trandate) Push over 2 minutes Give bolus over 2-3 minutes. Trazodone 50 mg, 1 tab, No Longer Hydrochloride Route: PO, Drug Active 2016 [facility] 50 MG Oral form: TAB, Tablet Bedtime, Dosing Weight 102.926, kg, PRN Insomnia, Start date: 06/15/16 13:52:00 CDT, Duration: 30 day, Stop date: 07/15/16 13:51:00 CDTNotes: (Same As: Desyrel) Miralax 17 gm, 1 pkt, No Longer Route: PO, Drug Active 2016 [facility] form: PWDR, Daily, Dosing Weight 102.926, kg, PRN Constipation, Start date: 06/15/16 13:52:00 CDT, Duration: 30 day, Stop date: 07/15/16 13:51:00 CDTNotes: Dissolve in 8 oz of water or juice. (Same as: Miralax) Nitroglycerin 0.4 mg, 1 tab, No Longer Route: SL, Drug Active 2016 [facility] form: TAB, Q5Min, Dosing Weight 102.926, kg, PRN Chest Pain, Start date: 06/15/16 13:52:00 CDT, Duration: 3 doses or times, Stop date: Limited # of timesNotes: (Same as:Nitroquick, Nitrostat) "Do Not Crush" Sublingual tablet Morphine 1 mg, 0.5 mL, No Longer Route: IVP, Drug Active 2016 [facility] form: INJ, Q2H, Dosing Weight 102.926, kg, PRN Chest Pain, Start date: 06/15/16 13:52:00 CDT, Duration: 2 doses or times, Stop date: Limited # of timesNotes: (Same as:MORPhine Sulfate) Ondansetron 4 mg, 1 tab, No Longer Route: PO, Drug Active 2016 [facility] form: TAB, Q8H, Dosing Weight 102.926, kg, PRN Nausea & Vomiting, Start date: 06/15/16 13:52:00 CDT, Duration: 30 day, Stop date: 07/15/16 13:51:00 CDTNotes: (Same as: Zofran) Allergies, Adverse Reactions, Alerts Substance Category Reaction Severity Reaction Status Date Comments Source type Reported Betadine Assertion Drug Active allergy [facility] Immunizations Immunization Date Site Status Last Updated Comments Source Given pneumococcal Right completed [facility] 13-valent 7 deltoid vaccine Results Order Name [...] is not recommended in the following populations: [facility] 3m2 Individuals with unstable creatinine concentrations, including [...] Lvl 104 mg/dL 70 - 99 06/30 [facility] CHEM PANEL Potassium 4.0 meq/L 3.5 - 5.1 06/30 Lvl [facility] CHEM PANEL Sodium Lvl 140 meq/L 135 - 145 06/30 [facility] CHEM PANEL Creatinine 1.10 mg/dL 0.50 - 06/30 Lvl 1.40 [facility] CHEM PANEL BUN 21 mg/dL 7 - 22 06/30 [facility] CHEM PANEL AGAP 13.0 meq/L 10.0 - 04/ MH 20.0 [facility] CHEM PANEL CO2 27 meq/L 24 - 32 06/30 [facility] CHEM PANEL Calcium Lvl 8.2 mg/dL 8.5 - 10.5 06/30 [facility] CHEM PANEL Chloride Lvl 104 meq/L 95 - 109 06/30 [facility] Chest Chest 1view Clinical Indication:65 years Male with Tube placement/ removal/reposition 06/30 - 1view DX DX /2016 - [facility] Comparison: Chest x-ray of 06/27/2016 Read by: [...] mg/dL 1.8 - 2.4 06/29 Lvl /2016 [facility] ELECTROLYT AGAP 15.4 meq/L 10.0 - 06/29 ES 20.0 [facility] ELECTROLYT eGFR 69 06/29 Result Comment: The [...] is not recommended in the following populations: [facility] 3m2 Individuals with unstable creatinine concentrations, including [...] Lvl 110 mg/dL 70 - 99 06/29 [facility] ELECTROLYT BUN 26 mg/dL 7 - 22 06/29 [facility] ELECTROLYT Chloride Lvl 105 meq/L 95 - 109 06/29 [facility] ELECTROLYT Creatinine 1.10 mg/dL 0.50 - 04 [facility] Lvl 1.40 /2016 [facility] ELECTROLYT Sodium Lvl 137 meq/L 135 - 145 06/29 [facility] ELECTROLYT Potassium 4.4 meq/L 3.5 - 5.1 06/29 [facility] ELECTROLYT CO2 21 meq/L 24 - 32 06/29 [facility] ELECTROLYT Calcium Lvl 8.1 mg/dL 8.5 - 10.5 06/29 [facility] HEMATOLOGY Basophils 0.3 % 0.0 - 1.0 06/29 [facility] HEMATOLOGY Segs-Bands # 9.5 K/CMM 1.5 - 8.1 06/29 [facility] HEMATOLOGY Lymphocytes 1.2 K/CMM 1.0 - 5.5 06/29 [facility] HEMATOLOGY Monocytes # 1.4 K/CMM 0.0 - 0.8 06/29 [facility] HEMATOLOGY Basophils # 0.0 K/CMM 0.0 - 0.2 06/29 [facility] HEMATOLOGY Eosinophils 0.2 K/CMM 0.0 - 0.5 06/29 [facility] HEMATOLOGY Polychrom Moderate None Seen 06/29 [facility] *ABN* (06/29/16 5:06 AM) HEMATOLOGY Plt Morph Normal 06/29 [facility] (06/29/16 5:06 AM) HEMATOLOGY Lymphocytes 9.7 % 20.0 - 06/29 40.0 [facility] HEMATOLOGY Segs 77.0 % 45.0 - 06/29 75.0 [facility] HEMATOLOGY Eosinophils 1.6 % 0.0 - 4.0 06/29 [facility] HEMATOLOGY Monocytes 11.4 % 2.0 - 12.0 06/29 [facility] HEMATOLOGY MCH 28.6 pg 27.0 - 06/29 MH 31.0 [facility] Platelet 163 K/CMM 133 - 450 04 [facility] HEMATOLOGY RDW 14.2 % 11.5 - 06/29 MH 14.5 [facility] HEMATOLOGY MCHC 33.9 g/dL 32.0 - 06/29 MH 36.0 /2016 [facility] MPV 8.3 fL 7.4 - 10.4 06/29 [facility] HEMATOLOGY RBC 3.11 M/CMM 4.70 - 06/29 6.10 [facility] HEMATOLOGY WBC 12.3 K/CMM 3.7 - 10.4 06/29 [facility] HEMATOLOGY MCV 84.3 fL 80.0 - 06/29 MH 94.0 /2016 [facility] HEMATOLOGY Hct 26.2 % 42.0 - 06/29 54.0 [facility] Hgb 8.9 g/dL 14.0 - 06/29 18.0 [facility] CHEM PANEL eGFR 56 06/28 Result Comment: [...] is not recommended in the following populations: [facility] 3m2 Individuals with unstable creatinine concentrations, including [...] Lvl 8.3 mg/dL 8.5 - 10.5 06/28 [facility] CHEM PANEL Potassium 4.5 meq/L 3.5 - 5.1 06/28 Lvl [facility] CHEM PANEL CO2 24 meq/L 24 - 32 06/28 [facility] CHEM PANEL Chloride Lvl 107 meq/L 95 - 109 06/28 [facility] CHEM PANEL Glucose Lvl 118 mg/dL 70 - 99 06/28 [facility] CHEM PANEL BUN 29 mg/dL 7 - 22 06/28 [facility] CHEM PANEL Sodium Lvl 139 meq/L 135 - 145 04/ /2016 [facility] CHEM PANEL Creatinine 1.30 mg/dL 0.50 - 06/28 MH Lvl 1.40 /2016 [facility] CHEM PANEL AGAP 12.5 meq/L 10.0 - 06/28 MH 20.0 [facility] CHEM PANEL Magnesium 2.7 mg/dL 1.8 - 2.4 06/28 MH Lvl /2016 [facility] HEMATOLOGY Hgb 9.0 g/dL 14.0 - 06/28 MH 18.0 /2016 [facility] HEMATOLOGY Hct 27.7 % 42.0 - 06/28 MH 54.0 /2016 [facility] HEMATOLOGY MCV 87.2 fL 80.0 - 06/28 MH 94.0 [facility] HEMATOLOGY MCH 28.5 pg 27.0 - 06/28 31.0 [facility] MCHC 32.6 g/dL 32.0 - 06/28 36.0 [facility] HEMATOLOGY WBC 11.9 K/CMM 3.7 - 10.4 06/28 [facility] HEMATOLOGY RBC 3.17 M/CMM 4.70 - 06/28 MH 6.10 [facility] HEMATOLOGY RDW 14.6 % 11.5 - 06/28 MH 14.5 [facility] HEMATOLOGY Platelet 136 K/CMM 133 - 450 06/28 [facility] HEMATOLOGY MPV 8.6 fL 7.4 - 10.4 06/28 [facility] HEMATOLOGY Lymphocytes 1.5 K/CMM 1.0 - 5.5 06/28 MH # /2016 [facility] HEMATOLOGY Monocytes # 1.4 K/CMM 0.0 - 0.8 06/28 [facility] HEMATOLOGY Eosinophils 0.1 K/CMM 0.0 - 0.5 06/28 # /2016 [facility] HEMATOLOGY Lymphocytes 12.3 % 20.0 - 06/28 MH 40.0 [facility] HEMATOLOGY Monocytes 11.6 % 2.0 - 12.0 06/28 [facility] HEMATOLOGY Eosinophils 1.1 % 0.0 - 4.0 06/28 [facility] HEMATOLOGY Basophils 0.3 % 0.0 - 1.0 06/28 [facility] HEMATOLOGY Segs-Bands # 8.9 K/CMM 1.5 - 8.1 06/28 [facility] HEMATOLOGY Segs 74.7 % 45.0 - 06/28 75.0 /2016 [facility] CHEM PANEL Magnesium 2.4 mg/dL 1.8 - 2.4 / Lvl /2016 [facility] HEMATOLOGY WBC 18.6 K/CMM 3.7 - 10.4 06/27 /2016 [facility] HEMATOLOGY RDW 14.7 % 11.5 - 06/27 14.5 /2016 [facility] HEMATOLOGY MCHC 33.1 g/dL 32.0 - 06/27 36.0 /2016 [facility] HEMATOLOGY Hct 29.5 % 42.0 - 06/27 54.0 /2016 [facility] HEMATOLOGY MCH 28.1 pg 27.0 - 06/27 31.0 /2016 [facility] HEMATOLOGY MCV 84.7 fL 80.0 - 06/27 94.0 /2016 [facility] HEMATOLOGY MPV 9.7 fL 7.4 - 10.4 06/27 [facility] HEMATOLOGY Platelet 118 K/CMM 133 - 450 06/27 [facility] Hgb 9.8 g/dL 14.0 - 06/27 18.0 /2016 [facility] HEMATOLOGY RBC 3.48 M/CMM 4.70 - 06/27 6.10 /2016 [facility] HEMATOLOGY Lymphocytes 2.0 K/CMM 1.0 - 5.5 / MH # /2016 [facility] HEMATOLOGY Segs 76.1 % 45.0 - 06/27 75.0 [facility] HEMATOLOGY Eosinophils 0.1 % 0.0 - 4.0 06/27 [facility] HEMATOLOGY Monocytes 12.7 % 2.0 - 12.0 06/27 [facility] HEMATOLOGY Segs-Bands # 14.2 K/CMM 1.5 - 8.1 06/27 [facility] HEMATOLOGY Basophils 0.5 % 0.0 - 1.0 06/27 [facility] HEMATOLOGY Lymphocytes 10.6 % 20.0 - 06/27 40.0 /2016 [facility] HEMATOLOGY Basophils # 0.1 K/CMM 0.0 - 0.2 06/27 [facility] HEMATOLOGY Monocytes # 2.4 K/CMM 0.0 - 0.8 06/27 [facility] Chest Chest 1view Study: Chest 1view DX 06/27 - 1view DX DX - [facility] Clinical Indication: Tube placement/removal/reposition Read by: Kaleb Melissa MD Dictated Date/time: 06/27/16 08:13 Electronically Signed by: Kaleb Melissa MD 06/27/16 08:15 FINAL REPORT Comparison: Chest x-ray from 06/26/2016 FINDINGS: 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 Right internal jugular central line is stable. Ellsworth-Cristian cath eter has been removed. Cardiac silhouette is normal in size. Calcified AP window lymph node is noted. Lung volumes are diminished and bibasilar atelectasis is seen. No pleural effusion or pneumothorax is seen. The osseous structures are unremarkable. IMPRESSION: Interval removal of Ellsworth-Cristian catheter SL: [id number] CHEM PANEL Phosphorus 2.0 mg/dL 2.5 - 4.5 06/26 /2016 [facility] HEMATOLOGY Eosinophils 0.0 K/CMM 0.0 - 0.5 06/26 # /2016 [facility] HEMATOLOGY Basophils # 0.0 K/CMM 0.0 - 0.2 06/26 [facility] PARATHYROI Ca Ion WB 1.11 . - 06/26 D PROFILE mMol/L . [facility] PARATHYROI Ca Norm WB 1.11 1.05 - 06/26 D PROFILE mMol/L . [facility] SPECIAL Hgb A1C 6.4 % <=5.6 % 06/26 CHEMISTRY /2016 [facility] Chest Chest 1view Clinical Indication:65 years Male with Tube placement/ removal/reposition 06/26 - 1view DX - [facility] Comparison: Chest x-ray 06/25/2016 Read by: Beck [...] Phosphorus 1.6 mg/dL 2.5 - 4.5 06/25 [facility] HEMATOLOGY RBC Morph Normal 06/25 [facility] (06/25/16 2:28 AM) HEMATOLOGY Plt Morph Normal 06/25 [facility] (06/25/16 2:28 AM) PARATHYROI Ca Norm WB 1.06 1.05 - 06/25 D PROFILE mMol/L 04.20 [facility] PARATHYROI Ca Ion WB 1.09 1.05 - 06/25 D PROFILE mMol/L 04.20 [facility] Chest Chest 1view Chest 1view DX 06/25 - 1view DX DX /2016 - [facility] CLINICAL HISTORY:Tube placement/removal/reposition Read by: Brett Lombardo [...] wires project over the patient's chest. SL: [id number] HEMATOLOGY POC 34.0 % 42.0 - 06/24 Hematocrit 54.0 [facility] HEMATOLOGY POC 11.6 g/dL 14.0 - 06/24 Hemoglobin 18.0 [facility] HEMATOLOGY POC Ion Ca 1.09 1.05 - 06/24 MH mMol/L . [facility] HEMATOLOGY POC 4.4 meq/L 3.5 - 5.1 06/24 Potassium /2016 [facility] HEMATOLOGY POC Sodium 143 meq/L 135 - 145 06/24 [facility] [place]M PANEL A/G Ratio 1.4 0.7 - 1.6 06/24 [facility] CHEM PANEL Globulin 2.1 g/dL 2.7 - 4.2 06/24 [facility] CHEM PANEL Bili 0.4 mg/dL 0.0 - 1.0 06/24 [facility] CHEM PANEL Bili Direct 0.2 mg/dL 0.0 - 0.3 06/24 [facility] CHEM PANEL Bili Total 0.6 mg/dL 0.2 - 1.3 06/24 [facility] CHEM PANEL Alk Phos 38 unit/L 39 - 136 06/24 [facility] CHEM PANEL AST 42 unit/L 0 - 37 06/24 [facility] CHEM PANEL ALT 51 unit/L 0 - 65 06/24 [facility] CHEM PANEL Albumin Lvl 2.9 g/dL 3.5 - 5.0 06/24 [facility] CHEM PANEL Total 5.0 g/dL 6.4 - 8.4 06/24 [facility] CHEM PANEL Phosphorus 2.3 mg/dL 2.5 - 4.5 06/24 [facility] HEMATOLOGY FSP <5 ug/ml <5 ug/ml 06/24 [facility] HEMATOLOGY Fibrinogen 206 mg/dL 230 - 510 06/24 Lvl [facility] HEMATOLOGY PTT 34.9 s 22.9 - 06/24 MH 35.8 [facility] HEMATOLOGY INR 1.27 0.85 - 06/24 1. [facility] HEMATOLOGY PT 16.2 s 12.0 - 06/24 14. [facility] PARATHYROI Ca Norm WB 1.09 1.05 - 06/24 D PROFILE mMol/L 1. [facility] PARATHYROI Ca Ion WB 1.10 1.05 - 06/24 D PROFILE mMol/L . [facility] HEMATOLOGY Fibrinogen 196 mg/dL 230 - 510 06/24 Lvl [facility] HEMATOLOGY PTT 32.8 s 22.9 - 06/24 35.8 [facility] HEMATOLOGY PT 16.6 s 12.0 - 06/24 14. [facility] HEMATOLOGY INR 1.32 0.85 - 06/24 1. [facility] Chest Chest 1view Patient Name: CHYNA RYAN 06/24 - 1view DX DX /2016 - [facility] : 1950; Age: 65 years y/o Male MR: [id number] Read by: Ted Hernandez MD Dictated Date/time: [...] base. 5. There is a right IJ Ellsworth-Cristian catheter. The catheter tip is in the expected location of the pulmonary valve. The Ellsworth-Cristian catheter does not extend into either main pulmonary artery. 6. The tip of the right IJ central venous catheter is in the lower superior vena cava. 7. There are mild scattered degenerative changes involving the thoracic spine. The regional skeleton is otherwise unremarkable. SL: [facility] BLOOD BANK Antibody Negative 06/24 RESULTS Scrn [facility] (06/24/16 4:15 AM) BLOOD BANK ABO/Rh A POS 06/24 RESULTS /2016 [facility] BLOOD BANK Platelet Product available 06/24 RESULTS product /2016 [facility] (06/24/16 4:00 AM) BLOOD BANK FFP product Product available 06/24 RESULTS /2016 [facility] (06/24/16 4:00 AM) BLOOD BANK Cryo product Product available 06/24 RESULTS /2016 [facility] (06/24/16 4:00 AM) BLOOD BANK RBC product Product available 06/24 RESULTS /2016 [facility] (06/24/16 4:00 AM) HEMATOLOGY INR 1.05 0.85 - 06/22 MH 1. /2016 [facility] HEMATOLOGY PTT 37.0 s 22.9 - 06/22 35.8 /2016 [facility] HEMATOLOGY PT 13.9 s 12.0 - 06/22 14.7 /2016 [facility] BLOOD BANK ABO/Rh A POS 06/20 RESULTS /2016 [facility] BLOOD BANK Antibody Negative 06/20 RESULTS Scrn [facility] (06/20/16 5:18 AM) HEMATOLOGY Plt Morph Normal 06/20 /2016 [facility] (06/20/16 5:18 AM) HEMATOLOGY RBC Morph Normal 06/20 /2016 [facility] (06/20/16 5:18 AM) MOLECULAR HCV RNA 6.9 06/20 DIAGNOSTIC Log10 [iU]/mL /2016 [facility] MOLECULAR HCV RNA [id number] 06/20 DIAGNOSTIC VirLoad [iU]/mL /2016 [facility] BLOOD BANK FFP product Product available 06/20 RESULTS /2016 [facility] (06/20/16 5:00 AM) BLOOD BANK Cryo product Product available 06/20 RESULTS /2016 [facility] (06/20/16 5:00 AM) BLOOD BANK RBC product Product available 06/20 RESULTS /2016 [facility] (06/20/16 5:00 AM) BLOOD BANK Platelet Product available 06/20 RESULTS product /2016 [facility] (06/20/16 5:00 AM) BACTERIAL MRSA by PCR Negative 06/18 - SEROLOGY /2016 [facility] (06/18/16 5:33 AM) CHEM PANEL B/C Ratio 18 6 - 25 06/18 [facility] CHEM PANEL Globulin 3.9 g/dL 2.7 - 4.2 06/18 [facility] CHEM PANEL A/G Ratio 0.8 0.7 - 1.6 06/18 [facility] CHEM PANEL ALT 67 unit/L 0 - 65 06/18 [facility] CHEM PANEL AST 74 unit/L 0 - 37 06/18 [facility] CHEM PANEL Total 7.1 g/dL 6.4 - 8.4 06/18 Protein [facility] CHEM PANEL Albumin Lvl 3.2 g/dL 3.5 - 5.0 06/18 [facility] CHEM PANEL Alk Phos 58 unit/L 39 - 136 06/18 [facility] CHEM PANEL Bili Total 0.4 mg/dL 0.2 - 1.3 06/18 [facility] LIPIDS CHD Risk 4.04 4.00 - 06/18 7.30 [facility] LIPIDS VLDL 16 06/18 [facility] LIPIDS LDL 121 mg/dL <=99 mg/dL 06/18 (Calculated) [facility] LIPIDS HDL 45 mg/dL >=61 mg/dL 06/18 [facility] LIPIDS Trig 82 mg/dL <=149 06/18 mg/dL [facility] LIPIDS Chol 182 mg/dL <=199 06/18 mg/dL [facility] SPECIAL Hgb A1C 6.4 % <=5.6 % 06/18 CHEMISTRY [facility] URINE AND UA null 0.1 - 1.0 06/18 [facility]OOL Urobilinogen [facility] URINE AND UA Sq Epi None Seen 06/18 [facility] URINE AND UA RBC null 0 - 2 06/18 [facility] URINE AND UA Bili Negative Negative 06/18 [facility] *NA* (06/18/16 5:33 AM) URINE AND UA Ketones Negative Negative 06/18 [facility] mg/dL mg/dL [facility] URINE AND UA Glucose Negative Negative 06/18 [facility] mg/dL mg/dL [facility] URINE AND UA WBC null 0 - 5 06/18 [facility] URINE AND UA Leuk Est Negative Negative 06/18 [facility] (06/18/16 5:33 AM) URINE AND UA Nitrite Negative Negative 06/18 [facility] (06/18/16 5:33 AM) URINE AND UA Blood Negative Negative 06/18 [facility] (06/18/16 5:33 AM) URINE AND UA Protein Negative Negative 06/18 [facility] mg/dL mg/dL [facility] URINE AND UA Color Light Yellow Yellow 06/18 [facility] *NA* (06/18/16 5:33 AM) URINE AND UA Turbidity Clear Clear 06/18 [facility] (06/18/16 5:33 AM) URINE AND UA pH 5.0 5.0 - 8.0 06/18 [facility] URINE AND UA Spec Grav 1.008 <=1.030 06/18 [facility] Chest 2 Chest 2 CHEST, 2 VIEWS 06/18 - views DX views - [facility] HISTORY: ; Respiratory distress; Read by: Vikash Joseph MD Dictated Date/time: 06/18/16 09:54 Electronically Signed by: Vikash Joseph MD 06/18/16 09:55 FINAL REPORT COMPARISON: June 15, 2016 FINDINGS: Lungs are underinflated with mild bilateral basal atelectasis/infiltrate, left greater than right. No pleural effusion or pneumothorax. Stable mediastinum. No acute osseous abnormality. SL: [id number] URINE AND UA Turbidity Clear Clear 06/18 [facility] (06/17/16 11:28 PM) URINE AND UA pH 6.0 5.0 - 8.0 06/18 [facility] URINE AND UA Color Light Yellow Yellow 06/18 [facility] *NA* (06/17/16 11:28 PM) URINE AND UA Spec Grav 1.010 <=1.030 06/18 STOOL [facility] URINE AND UA WBC 1 /HPF 0 - 5 06/18 STOOL [facility] URINE AND UA Bacteria Occasional None Seen 06/18 [facility] /HPF /HPF [facility] URINE AND UA Glucose Negative Negative 06/18 [facility] mg/dL mg/dL [facility] URINE AND UA Protein Negative Negative 06/18 [facility] mg/dL mg/dL [facility] URINE AND UA null 0.1 - 1.0 06/18 [facility] Urobilinogen /2016 [facility] URINE AND UA Sq Epi None Seen 06/18 STOOL [facility] URINE AND UA Leuk Est Negative Negative 06/18 STOOL [facility] (06/17/16 11:28 PM) URINE AND UA Nitrite Negative Negative 06/18 STOOL [facility] (06/17/16 11:28 PM) URINE AND UA Blood Negative Negative 06/18 STOOL [facility] (06/17/16 11:28 PM) URINE AND UA Bili Negative Negative 06/18 [facility] *NA* (06/17/16 11:28 PM) URINE AND UA Ketones Negative Negative 06/18 [facility] mg/dL mg/dL [facility] Abdomen Abdomen RUQ ULTRASOUND ABDOMEN RIGHT UPPER QUADRANT 06/17 RUQ US - [facility] HISTORY: Abnormal Lab tests- LFT; Read by: [...] right abdominal ascites. IMPRESSION: Normal study. SL: [id number] LIPIDS CHD Risk 4.26 4.00 - 06/16 MH 7.30 [facility] LIPIDS VLDL 22 06/16 [facility] LIPIDS LDL 118 mg/dL <=99 mg/dL 06/16 (Calculated) /2016 [facility] LIPIDS HDL 43 mg/dL >=61 mg/dL 06/16 [facility] LIPIDS Chol 183 mg/dL <=199 06/16 mg/dL /2016 [facility] LIPIDS Trig 112 mg/dL <=149 06/16 mg/dL /2017 [facility] CARDIAC Total CK 384 unit/L 12 - 191 06/16 ENZYMES /2017 [facility] CARDIAC Troponin-I 7.44 ng/mL 0.00 - 06/16 Result ENZYMES 0.40 /2017 Comment: [facility] Critical Result(s) called to Missael Alvarenga at 06/15/2016 20:33 by TW. Read back OK. CARDIAC CK MB Index 4.4 0.0 - 2.5 06/16 ENZYMES /2016 [facility] CARDIAC CK MB 17.0 ng/mL 0.5 - 3.6 06/16 ENZYMES /2017 [facility] CARDIAC CK MB Index 4.8 0.0 - 2.5 06/15 ENZYMES /2017 [facility] CARDIAC Total CK 412 unit/L 12 - 06/15 ENZYMES /2017 [facility] CARDIAC CK MB 19.8 ng/mL 0.5 - 3.6 06/15 ENZYMES /2017 [facility] CARDIAC Troponin-I 6.52 ng/mL 0.00 - 06/15 Result ENZYMES 0.40 /2017 Comment: [facility] Critical Result(s) called to Robert long at 06/15/2016 16:44 by TW. Read back OK. CHEM PANEL Globulin 3.7 g/dL 2.7 - 4.2 06/15 /2016 [facility] CHEM PANEL A/G Ratio 0.9 0.7 - 1.6 06/15 /2016 [facility] CHEM PANEL B/C Ratio 19 6 - 25 06/15 [facility] CHEM PANEL Bili Total 0.5 mg/dL 0.2 - 1.3 06/15 [facility] CHEM PANEL Albumin Lvl 3.3 g/dL 3.5 - 5.0 06/15 [facility] CHEM PANEL Total 7.0 g/dL 6.4 - 8.4 06/15 [facility] CHEM PANEL Alk Phos 68 unit/L 39 - 136 06/15 [facility] CHEM PANEL AST 51 unit/L 0 - 37 06/15 [facility] CHEM PANEL ALT 44 unit/L 0 - 65 06/15 [facility] DRUG U Cannab Scr Negative Negative 06/15 SCREEN /2016 [facility] *NA* (06/15/16 2:56 PM) DRUG U Phencyc Negative Negative 06/15 SCREEN Scr /2016 [facility] *NA* (06/15/16 2:56 PM) DRUG U Opiate Scr Negative Negative 06/15 SCREEN [facility] *NA* (06/15/16 2:56 PM) DRUG U Cocaine Negative Negative 06/15 SCREEN Scr [facility] *NA* (06/15/16 2:56 PM) DRUG U Benzodia Negative Negative 06/15 SCREEN Scr [facility] *NA* (06/15/16 2:56 PM) DRUG U Amph Scr Negative Negative 06/15 SCREEN [facility] *NA* (06/15/16 2:56 PM) DRUG U Elsy Scr Negative Negative 06/15 SCREEN [facility] *NA* (06/15/16 2:56 PM) DRUG UDS Note See Note 06/15 SCREEN [facility] (06/15/16 2:56 PM) IMMUNOLOGY Hep Bs Ag Negative Negative 06/15 [facility] *NA* (06/15/16 2:56 PM) IMMUNOLOGY Hep B Core Negative Negative 06/15 IgM /2016 [facility] *NA* (06/15/16 2:56 PM) IMMUNOLOGY Hep C Ab Positive 06/15 [facility] *ABN* (06/15/16 2:56 PM) IMMUNOLOGY Hep A IgM Negative Negative 06/15 [facility] *NA* (06/15/16 2:56 PM) SPECIAL Hgb A1C 6.6 % <=5.6 % 06/15 CHEMISTRY /2016 [facility] URINE AND UA pH 5.5 5.0 - 8.0 06/15 STOOL [facility] URINE AND UA Spec Grav 1.020 <=1.030 06/15 STOOL [facility] URINE AND UA Protein Negative Negative 06/15 STOOL /2016 [facility] (06/15/16 2:56 PM) URINE AND UA Turbidity Clear Clear 06/15 STOOL [facility] (06/15/16 2:56 PM) URINE AND UA Leuk Est Negative Negative 06/15 STOOL [facility] (06/15/16 2:56 PM) URINE AND Micro? Not Indicated 06/15 STOOL [facility] (06/15/16 2:56 PM) URINE AND UA Glucose Negative Negative 06/15 STOOL [facility] (06/15/16 2:56 PM) URINE AND UA Bili Negative Negative 06/15 STOOL [facility] *NA* (06/15/16 2:56 PM) URINE AND UA Ketones Negative Negative 06/15 STOOL [facility] *NA* (06/15/16 2:56 PM) URINE AND UA Blood Negative Negative 06/15 STOOL [facility] (06/15/16 2:56 PM) URINE AND UA Nitrite Negative Negative 06/15 STOOL [facility] (06/15/16 2:56 PM) URINE AND UA 0.2 EU/dL 0.1 - 1.0 06/15 STOOL Urobilinogen [facility] URINE AND UA Color Yellow Yellow 06/15 STOOL [facility] *NA* (06/15/16 2:56 PM) Chest 2 Chest 2 Patient Name: CHYNA RYAN 06/15 - views DX views DX /2016 - [facility] : 1950; Age: 65 years Male MR: [id number] Read by: Azeem Duffy MD Dictated Date/time: [...] follow-up chest imaging to document resolution. SL: [id number] Vital Signs Vital Sign Value Date Comments Source Respitory Rate 20 06/30/2016 [facility] Systolic (mm Hg) 114 06/30/2016 [facility] Diastolic (mm Hg) 75 06/30/2016 [facility] Heart Rate 76 06/30/2016 [facility] Respitory Rate 20 06/30/2016 [facility] Systolic (mm Hg) 105 06/30/2016 [facility] Diastolic (mm Hg) 60 06/30/2016 [facility] Heart Rate 77 06/30/2016 [facility] Systolic (mm Hg) 108 06/30/2016 [facility] Diastolic (mm Hg) 68 06/30/2016 [facility] Heart Rate 70 06/30/2016 [facility] Respitory Rate 18 06/30/2016 [facility] Weight 111.384 06/29/2016 [facility] Weight 110.469 06/28/2016 [facility] Height 177.8 cm 06/25/2016 [facility] Height 177.8 cm 06/25/2016 [facility] Height 177.8 cm 06/24/2016 [facility] Temperature Oral (F) 97.6 F 06/24/2016 [facility] Weight 103.653 06/24/2016 [facility] Temperature Oral (F) 97.9 F 06/20/2016 [facility] BMI Calculated 32.56 06/15/2016 [facility] Encounters Location Location Encounter Encounter Reason Attending ADM DC Status Source Details Type Number For Provider Date Date Visit [facility] Inpatient [id number] Eugenia Benedict 06/15 07/01 [facility] Procedures Procedure Code Date Perfomer Comments Source Repair of knee [id number] 03/27/1973 [facility] collateral ligaments
--- OUTSIDE RECORDS SUMMARY | 2018-04-09 07:04 | XMS REPORT ---
:1950 [facility] Address [address] [place] [address] [address] [place] [address] Care Team Providers Name Role Phone Unavailable Unavailable Unavailable Problems This patient has no known problems. Allergies, Adverse Reactions, Alerts This patient has no known allergies or adverse reactions. Medications This patient has no known medications.
[2018-04-09] MEDS ORDERED: HEPA 1000U/500MLS 2,000 UNIT/1,000 ML BAG IV ONE (07:10)
[2018-04-09] MEDS ORDERED: LIDOCAINE 1% MPF 5 ML VIAL ONE ×2 (07:10→08:19)
[2018-04-09] MEDS ORDERED: NA CHLORIDE 0.9% 500 ML ONE (07:20)
[2018-04-09] MEDS ORDERED: MIDAZOLAM HCL 2 MG/2 ML INJ ONE ×2 (08:00→08:19)
[2018-04-09] MEDS ORDERED: FENTANYL CITR 100 MCG/2 ML ONE ×2 (08:00→11:16)
--- NOTE | 2018-04-09 21:40 | OP ---
Surgeon: Darci Hernandez MD Primary Care Physicians: Paola Ariza and Dr. Alonso Fregoso. Procedures: Left heart catheterization with coronary angiography, left ventricular angiography, aort ic root angiography and angiography of the left internal mammary artery. Findings: The patient's right coronary artery, left main, circumflex and obtuse marginal branches ar e all within normal limits. Only minor plaquing is seen. The LAD was 100% occluded. A bypass goes to the LAD. It is a left internal mammary bypass that is long, quite tortuous but not stenotic at al l and there is normal blood flow to the LAD through this. Left ventricular ejection fraction was not measured, we wanted to conserve how much dye was used. Left ventricular end-diastolic pressure was normal at 11. Procedure In Detail: The patient had an abnormal Cardiolite stress test showing anterior apical isch emia. He was brought to the cardiac laboratory chief in a fasting state. Informed consent had been given. He was prepared and draped in the usual sterile fashion, sedated with Versed and fentanyl, titrated t o an adequate level of sedation. Right femoral artery was identified through palpation. Local anest hesia was given in the tissues around the artery. The artery was entered using an 18-gauge needle. A short J-wire was used to place a 4-Japanese sheath. The iliac artery proved to be tortuous. We requ ired a Wholey wire to navigate that. After that, we used an exchange wire technique for all catheter exchanges. We angiogramed the left coronary arteries using a JL-4, right coronary artery the ALBERTO a nd all attempts to look at grafts with a JR4. We measured LV pressures using a pigtail. We did an a ortic root angiogram using the pigtail catheter. At the end of the procedure, all catheters and wire s were withdrawn over a wire and an angiogram was done of the sheath. Adequate anatomy was seen and the arteriotomy was closed using an Angio-Seal device. Estimated blood loss, 10 cc. Complicatio ns from the procedure, none. CHERYL/MODL Voice ID: [id number] Report ID: [id number]
== END 2018-04-09 13:08 | disposition home health service (06) ==
LOC: CCL 06:58
PROVIDERS: ATTEND Internal Medicine
DX: I25.10 Atherosclerotic heart disease of native coronary artery without angina pectoris (principal); I25.82 Chronic total occlusion of coronary artery; Z95.1 Presence of aortocoronary bypass graft; I10 Essential (primary) hypertension; I48.91 Unspecified atrial fibrillation; J44.9 Chronic obstructive pulmonary disease, unspecified; E78.5 Hyperlipidemia, unspecified
CPT/HCPCS: 36415; 80048; 85610; 85730; 93459; C1760; C1893; J2250 ×2; J3010 ×2

== ENCOUNTER 2018-06-24 13:17 | Emergency (ER) | payer OTHER ==
--- OUTSIDE RECORDS SUMMARY | 2018-06-24 13:23 | XMS REPORT | Continuity of Care Document ---
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 Problem 07/03/2016 [facility] 13 CHEST PAIN, Active [facility] UNSPECIFIED Medications Medication Details Route Status Patient Ordering Order Source Instructions Provider Date lisinopril 2.5 2.5 mg=1 tab, PO, Active mg oral tablet Daily, # 30 tab, 2016 [facility] 0 Refill(s) AMIODarone 200 200 mg=1 tab, PO, Active mg oral tablet BID, please start 2016 [facility] this regimen after 1 week of 400 mg PO BID for 1 week, # 60 tab, 0 Refill(s) Acetaminophen 2 tab, PO, Q6H, Active 300 MG / PRN Pain Score 2016 [facility] Codeine 4-6, X 5 day, # Phosphate 30 MG 40 tab, 0 Oral Tablet Refill(s) [Tylenol with Codeine #3] 200 ACTUAT 2 puff, Active Albuterol 0.09 INHALATION, QID, 2016 [facility] MG/ACTUAT PRN for wheezing, Metered Dose # 25 gm, 0 Inhaler Refill(s) [Proventil] Advair Diskus 1 puff, Active 250 mcg-50 mcg INHALATION, BID, 2016 [facility] inhalation # 60 puff, 0 powder Refill(s) torsemide 10 mg 10 mg=1 tab, PO, Active oral tablet Daily, # 30 tab, 2016 [facility] 0 Refill(s) metoprolol 25 25 mg=1 tab, PO, Active mg oral tablet, Daily, # 30 tab, 2016 [facility] extended 0 Refill(s) release clopidogrel 75 75 mg=1 tab, PO, Active mg oral tablet Daily, # 30 tab, 2016 [facility] 0 Refill(s) atorvastatin 40 40 mg=1 tab, PO, Active mg oral tablet Bedtime, # 30 2016 [facility] tab, 0 Refill(s) aspirin 81 mg 81 mg=1 tab, PO, Active tablet, enteric Daily, # 100 tab, 2016 [facility] coated 0 Refill(s) 12 HR 600 mg=1 tab, PO, Active Guaifenesin 600 Q12H, PRN 2017 [facility] Extended Congestion, X 7 Release Tablet day, # 14 tab, 0 [Mucinex] Refill(s) Amiodarone 400 mg, 2 tab, Inactive Route: PO, Drug 2016 [facility] form: TAB, BID, Dosing Weight 111.384, kg, Priority: NOW, Start date: 06/30/16 7:15:00 CDT, Stop date: 07/14/16 17:00:00 CDTNotes: (Same as: Cordarone) torsemide 10 mg, 1 tab, No Longer Route: PO, Drug Active 2016 [facility] form: TAB, Daily, Dosing Weight 111.384, kg, Start date: 06/29/16 9:00:00 CDT, Duration: 30 day, Stop date: 07/28/16 9:00:00 CDTNotes: (Same As: Demadex) Amiodarone 200 mg, 1 tab, No Longer Route: PO, Drug Active 2016 [facility] form: TAB, TID, Dosing Weight 110.469, kg, Priority: NOW, Start date: 06/28/16 9:06:00 CDT, Duration: 30 day, Stop date: 07/28/16 9:00:00 CDTNotes: (Same as: Cordarone) metoprolol 25 mg, 1 tab, No Longer extended Route: PO, Drug Active 2016 [facility] release form: ERTAB, Daily, Start date: 06/28/16 9:00:00 CDT, Duration: 30 day, Stop date: 07/27/16 9:00:00 CDTNotes: (Same as: Toprol XL) Do Not Crush atorvastatin 40 mg, 1 tab, No Longer Route: PO, Drug Active 2016 [facility] form: TAB, Bedtime, Dosing Weight 103.653, kg, Start date: 06/27/16 21:00:00 CDT, Duration: 30 day, Stop date: 07/26/16 21:00:00 CDTNotes: (Same as: Lipitor) chlorhexidine 1 pkt, Route: No Longer gluconate 40 BATHE, Q-M-W-F, Active 2016 [facility] MG/ML Medicated Drug form: SOLN, Liquid Soap Start date: 06/27/16 9:00:00 CDT, Duration: 30 day, Stop date: 07/25/16 9:00:00 CDTNotes: (Same As: Danieliclewesley) Glucagon 1 mg, Route: IM, No Longer Drug form: Active 2016 [facility] PDR/INJ, PRN, Dosing Weight 103.653, kg, PRN Blood Glucose Results, Start date: 06/26/16 10:21:00 CDT, Duration: 30 day, Stop date: 07/26/16 10:20:00 CDT Dextrose 50% 25 gm, 50 mL, No Longer Syringe Route: IVP, Drug Active 2016 [facility] Form: INJ, Dosing Weight 103.653, kg, PRN, PRN Blood Glucose Results, Start date: 06/26/16 10:21:00 CDT, Duration: 30 day, Stop date: 07/26/16 10:20:00 CDT Insulin, 8 unit, 0.08 mL, No Longer Aspart, Human Route: SUB-Q, Active 2016 [facility] Drug form: SOLN, TID-Before Meals, Dosing [...] 2 mL, Inactive Route: IVP, Drug 2016 [facility] form: INJ, ONCE, Dosing Weight 103.653, kg, Priority: NOW, Start date: 06/26/16 7:30:00 CDT, Stop date: 06/26/16 7:30:00 CDTNotes: (Same as: Lasix) albumin human 12.5 gm, 250 mL, Inactive 5% intravenous 250 ml/hr, Route: 2016 [facility] solution IV, Drug Form: INJ, Dosing Weight 103.653, kg, ONCE, Start date: 06/26/16 7:30:00 CDT, Stop date: 06/26/16 7:30:00 CDTNotes: LOT#: Mfg: ___ WASTE: F/P - Red; E -Red (Same as: Albuminar) "blood product derivative" glucagon 1 mg, Route: INJ, No Longer Drug form: Active 2016 [facility] PDR/INJ, PRN, PRN Blood Glucose Results, Start date: 06/25/16 22:17:00 CDT, Duration: 30 day, Stop date: 07/25/16 22:16:00 CDT Dextrose 50% in 50 mL, Route: No Longer Water IV IVP, Start date: Active 2016 [facility] 06/25/16 22:17:00 CDT, Duration: 30 day, Stop date: 07/25/16 22:16:00 CDT, PRN Blood Glucose Results insulin aspart 10 unit, 0.1 mL, No Longer Route: SUB-Q, Active 2016 [facility] Drug form: SOLN, Sliding Scale, PRN [...] No Longer Route: PO, Drug Active 2016 [facility] form: TAB, Bedtime, Dosing Weight 103.653, kg, Start date: 06/25/16 21:00:00 CDT, Duration: 30 day, Stop date: 07/24/16 21:00:00 CDTNotes: (Same As: Lipitor) Lovenox 40 mg, 0.4 mL, No Longer Route: SUB-Q, Active 2016 [facility] Drug form: INJ, [id number], Dosing Weight 103.653, kg, Start date: 06/25/16 20:00:00 CDT, Duration: 30 day, Stop date: 07/24/16 20:00:00 CDTNotes: (Same as: Lovenox) Dilaudid 0.5 mg, 0.5 mL, Inactive Route: IVP, Drug 2016 [facility] form: INJ, ONCE, Dosing Weight 103.653, kg, Priority: STAT, Start date: 06/25/16 18:54:00 CDT, Stop date: 06/25/16 18:54:00 CDT pantoprazole 40 mg, 1 tab, Inactive Route: PO, Drug 2016 [facility] form: ECTAB, Daily, Dosing Weight 103.653, kg, Start date: 06/25/16 9:00:00 CDT, Duration: 30 day, Stop date: 07/24/16 9:00:00 CDTNotes: Tablet should not be chewed or crushed. (Same as: Protonix) Mupirocin 0.02 1 appl, Route: No Longer MG/MG Topical NASAL, BID, Drug Active 2016 [facility] Ointment form: OINT, Start date: 06/25/16 9:00:00 CDT, Duration: 5 day, Stop date: 06/29/16 17:00:00 CDT clopidogrel 75 mg, 1 tab, No Longer Route: PO, Drug Active 2016 [facility] form: TAB, Daily, Dosing Weight 102.926, kg, Start date: 06/25/16 9:00:00 CDT, Duration: 30 day, Stop date: 07/24/16 9:00:00 CDTNotes: (Same As: Plavix) Aspirin 325 MG 325 mg, Route: No Longer Enteric Coated PO, Drug form: Active 2016 [facility] Tablet ECTAB, Daily, Dosing Weight 102.926, kg, Start date: 06/25/16 9:00:00 CDT, Duration: 30 day, Stop date: 07/24/16 9:00:00 CDT heparin 5,000 unit, 1 mL, Inactive Route: SUB-Q, 2016 [facility] Drug form: INJ, Q8H, Dosing Weight 103.653, kg, Start date: 06/25/16 8:00:00 CDT, Duration: 30 day, Stop date: 07/25/16 0:00:00 CDTNotes: porcine heparin vancomycin 1.5 gm, 250 mL, Inactive Route: IVPB, Drug 2016 [facility] form: INJ, [id number], Start date: 06/25/16 1:30:00 CDT, Duration: 2 doses or times, Stop date: 06/25/16 13:30:00 CDTNotes: TIME CRITICAL MEDICATION Same as: Vancocin-NS (premixed) Infusion rate 2001 mg: infuse over 2.5 hours cefuroxime + 1.5 gm, Route: Inactive sodium chloride IVPB, [id number], 2016 [facility] 0.9% INJ 100 mL Dosing Weight 103.653, kg, Start date: 06/25/16 1:00:00 CDT, Duration: 3 doses or times, Stop date: 06/25/16 17:00:00 CDTNotes: (Same As: Kefurox, Zinacef) MEDICATION WASTE Product Size: 1500 mg Product Wasted: ___ mg Vancomycin 1,554.795 mg, Inactive Route: IVPB, Drug 2016 [facility] form: INJ, Q12H, Dosing Weight 103.653, kg, Time Critical Medication, Start date: 06/24/16 21:00:00 CDT, Duration: 2 doses or times, Stop date: 06/25/16 9:00:00 CDT chlorhexidine 15 ml, Route: No Longer gluconate 1.2 S&SPIT, Q12H, Active 2016 [facility] MG/ML Mouthwash Drug form: LIQ, Start date: 06/24/16 21:00:00 CDT, Duration: 2 week, Stop date: 07/08/16 9:00:00 CDTNotes: (Same As: Peridex) Aspirin 325 MG 325 mg, 1 tab, No Longer Oral Tablet Route: NG, Drug Active 2016 [facility] form: TAB, Daily, Dosing Weight 102.926, kg, Start date: 06/24/16 21:00:00 CDT, Duration: 30 day, Stop date: 07/24/16 9:00:00 CDTNotes: Take with food. EPINEPHrine 4 246 mL, Rate: No Longer mg + sodium Titrate, Route: Active 2016 [facility] chloride 0.9% IV, Dosing Weight INJ 246 mL 103.653 kg, Total Volume: 250, Start date: 06/24/16 18:38:00 CDT, Duration: 30 day, Stop date: 07/24/16 18:37:00 CDTNotes: (Same as: Adrenalin) Suremed - Injectable drug used as inhalation treatment. MEDICATION WASTE Product Size: 1 mg Product Wasted: ___ mg insulin aspart 14 unit, 0.14 mL, No Longer Route: SUB-Q, Active 2016 [facility] Drug form: SOLN, Sliding Scale, PRN [...] mL, No Longer Route: SUB-Q, Active 2016 [facility] Drug form: SOLN, Sliding Scale, PRN [...] Longer unit-NS 100mL Rate: Titrate, Active 2016 [facility] 100 unit Dosing Weight 103.653, kg, Route: IV, Total Volume: 100, Start Date: 06/24/16 18:35:00 CDT, Duration: 30 day, Stop date: 07/24/16 18:34:00 CDT, Replace Every: 24 hrNotes: Final Concentration 1unit/1ml WASTE: F/P - Black; E - Municipal Trash Bin insulin reg 100 100 unit, 100 mL, Inactive unit-NS 100mL Rate: Titrate, 2016 [facility] 100 unit Dosing Weight 103.653, kg, Route: IV, Total Volume: 100, Start Date: 06/24/16 18:34:00 CDT, Duration: 30 day, Stop date: 07/24/16 18:33:00 CDT, Replace Every: 24 hrNotes: Final Concentration 1unit/1ml WASTE: F/P - Black; E - Municipal Trash Bin albuterol 2.49 mg, 3 mL, No Longer Route: NEB, Drug Active 2016 [facility] form: SOLN, PRN, PRN Respiratory Protocol, Start date: 06/24/16 18:16:00 CDT, Stop date: 07/24/16 18:15:00 CDTNotes: SEE RT DOCUMENTATION (Same as: Proventil) Fentanyl 600 microgram, 30 No Longer mL, Route: IV, Active 2016 [facility] [employer]GER Dose: 10 mcg, [employer]GER Lockout: 10 minutes, Continuous Basal Rate: 0 mg, 4 Hour Limit (In MCG): 240, Drug Form: INJ, Continuous, Start date: 06/24/16 18:00:00 CDT, Duration: 30 day, Stop date: 07/24/16 17:59:00 CDTNotes: Concentration is 20 micrograms/ml metoprolol 12.5 mg, 0.5 tab, No Longer tartrate Route: PO, Drug Active 2016 [facility] form: TAB, Q6H, Dosing Weight 102.926, kg, Start date: 06/24/16 18:00:00 CDT, Duration: 30 day, Stop date: 07/24/16 12:00:00 CDTNotes: (Same as: Lopressor) Cefuroxime 1.5 gm, Route: Inactive IVPB, ABXQ8H, 2016 [facility] Dosing Weight 103.653, kg, Start date: 06/24/16 18:00:00 CDT, Duration: 3 doses or times, Stop date: 06/25/16 10:00:00 CDTNotes: (Same As: Kefurox, Zinacef) MEDICATION WASTE Product Size: 1500 mg Product Wasted: ___ mg PHOS-NaK 2 pkt, Route: PO, No Longer Drug Form: Active 2016 [facility] PDR/REC, Dosing Weight 103.653, kg, PRN, PRN Abnormal Lab Result, FOR ICU USE ONLY, Start date: 06/24/16 17:44:00 CDT, Duration: 30 day, Stop date: 07/24/16 17:43:00 CDTNotes: (Same as: Phos-NaK) Each 1.5 gm pkt has 250mg phosphorous. Mix w/2.5oz water and stir. potassium 45 mmol, 15 mL, No Longer phosphate + Route: IVPB, PRN, Active 2016 [facility] sodium chloride Dosing Weight 0.9% INJ 250 mL 103.653, kg, PRN Abnormal Lab Result, Start date: 06/24/16 17:44:00 CDT, Duration: 30 day, Stop date: 07/24/16 17:43:00 CDT, FOR ICU USE ONLYNotes: (Same as: K Phosphate.) 1 mMol phoshate has 1.47 mEq potassium Infuse over 4 hours Calcium 1 gm, 50 mL, No Longer Gluconate Route: IVPB, Drug Active 2016 [facility] form: INJ, PRN, Dosing Weight 103.653, kg, PRN Abnormal Lab Result, Start date: 06/24/16 17:44:00 CDT, Duration: 30 day, Stop date: 07/24/16 17:43:00 CDT, FOR ICU USE ONLYNotes: WASTE: F/P - Sink; E - Municipal Trash Bin Magnesium Oxide 800 mg, 2 tab, No Longer Route: PO, Drug Active 2016 [facility] form: TAB, PRN, Dosing Weight 103.653, kg, PRN Abnormal Lab Result, FOR ICU USE ONLY, Start date: 06/24/16 17:44:00 CDT, Duration: 30 day, Stop date: 07/24/16 17:43:00 CDTNotes: (Same as: Mag-Ox 400) Magnesium oxide [id number] elemental magnesium Dose=____mg magnesium oxide (___mg elemental magnesium) Magnesium 2 gm, 50 mL, No Longer Sulfate Route: IVPB, Drug Active 2016 [facility] form: INJ, PRN, Dosing Weight 103.653, kg, PRN Abnormal Lab Result, Start date: 06/24/16 17:44:00 CDT, Duration: 30 day, Stop date: 07/24/16 17:43:00 CDT, FOR ICU USE ONLYNotes: WASTE: F/P - Sink; E - Municipal Trash Bin potassium 20 mEq, 15 mL, No Longer chloride Route: NJ, Drug Active 2016 [facility] form: LIQ, PRN, Dosing Weight 103.653, kg, PRN Abnormal Lab Result, Start date: 06/24/16 17:44:00 CDT, Duration: 30 day, Stop date: 07/24/16 17:43:00 CDT, FOR ICU USE ONLYNotes: (Same as: Potassium Chloride) Calcium 1,000 mg, 2 tab, No Longer Carbonate 500 Route: CHEW, Drug Active 2016 [facility] Chewable form: CHEWTAB, Tablet PRN, Dosing Weight 103.653, kg, PRN Abnormal Lab Result, FOR ICU USE ONLY, Start date: 06/24/16 17:44:00 CDT, Duration: 30 day, Stop date: 07/24/16 17:43:00 CDTNotes: (Same As: Tums) Calcium Carbonate 500 xq=933 mg elemental calcium Dose= mg calcium carbonate ( mg elemental calcium) Insulin, 3 unit, 0.03 mL, Inactive Aspart, Human Route: SUB-Q, 2016 [facility] Drug form: SOLN, TID-Before Meals, Dosing [...] phosphate + Route: IVPB, PRN, Active 2016 [facility] sodium chloride Dosing Weight 0.9% INJ 250 mL 103.653, kg, PRN Abnormal Lab Result, Start date: 06/24/16 17:44:00 CDT, Duration: 30 day, Stop date: 07/24/16 17:43:00 CDT, FOR ICU USE ONLY potassium 15 mmol, 250 mL, No Longer phosphate Route: IVPB, Drug Active 2016 [facility] form: INJ, PRN, Dosing Weight 103.653, kg, PRN Abnormal Lab Result, Start date: 06/24/16 17:44:00 CDT, Duration: 30 day, Stop date: 07/24/16 17:43:00 CDT, FOR ICU USE ONLYNotes: (Same as: K Phosphate) sodium 15 mmol, 250 mL, No Longer phosphate Route: IVPB, Drug Active 2016 [facility] form: INJ, PRN, Dosing Weight 103.653, kg, PRN Abnormal Lab Result, Start date: 06/24/16 17:44:00 CDT, Duration: 30 day, Stop date: 07/24/16 17:43:00 CDT, FOR ICU USE ONLY Naloxone 0.04 mg, 0.1 mL, No Longer Route: IVP, Drug Active 2016 [facility] form: INJ, Q2MIN, Dosing Weight 103.653, kg, PRN Narcotic Reversal, Start date: 06/24/16 17:44:00 CDT, Duration: 30 day, Stop date: 07/24/16 17:43:00 CDTNotes: Same as Narcan Saline Flush 10 ml, Route: No Longer 0.9% IVP, Drug Form: Active 2016 [facility] INJ, Dosing Weight 103.653, kg, PRN, PRN Line Flush, Start date: 06/24/16 17:44:00 CDT, Duration: 30 day, Stop date: 07/24/16 17:43:00 CDTNotes: (Same as: BD Posiflush) Dulcolax 10 mg, 1 supp, No Longer Laxative Route: TX, Drug Active 2016 [facility] form: SUPP, Daily, Dosing Weight 102.926, kg, PRN Constipation, Start date: 06/24/16 17:44:00 CDT, Duration: 30 day, Stop date: 07/24/16 17:43:00 CDTNotes: (Same As: Dulcolax, Bisco-Lax) Lactulose 667 20 gm, 30 mL, No Longer MG/ML Oral Route: PO, Drug Active 2016 [facility] Solution form: SYRP, Daily, Dosing Weight 102.926, kg, PRN as needed for constipation, Start date: 06/24/16 17:44:00 CDT, Duration: 30 day, Stop date: 07/24/16 17:43:00 CDTNotes: (Same as:Chronulac) albumin human 12.5 gm, 250 mL, No Longer 5% intravenous 500 ml/hr, Route: Active 2016 [facility] solution IVPB, Drug Form: INJ, Dosing Weight 102.926, kg, ONCE, PRN Hypotension, Start date: 06/24/16 17:44:00 CDTNotes: LOT#: Mfg: ___ WASTE: F/P - Red; E -Red (Same as: Albuminar) "blood product derivative" Acetaminophen 1 tab, Route: PO, No Longer 300 MG / Drug Form: TAB, Active 2016 [facility] Codeine Dosing Weight Phosphate 30 MG 102.926, kg, Q6H, Oral Tablet PRN Pain Score [Tylenol with 1-3, Start date: Codeine #3] 06/24/16 17:44:00 CDT, Duration: 30 day, Stop date: 07/24/16 17:43:00 CDTNotes: Do not exceed 4gm/day of acetaminophen. (Same as: Tylenol with Codeine # 3) Zofran 4 mg, 2 mL, No Longer Route: IVP, Drug Active 2016 [facility] form: INJ, Q8H, Dosing Weight 102.926, kg, PRN Nausea, Start date: 06/24/16 17:44:00 CDT, Duration: 30 day, Stop date: 07/24/16 17:43:00 CDTNotes: (Same as: Zofran) MEDICATION WASTE Product Size: 4 mg Product Wasted: ___ mg Xopenex 1.25 mg, Route: Inactive NEB, PRN, Dosing 2016 [facility] Weight 102.926, kg, PRN Respiratory Protocol, Start date: 06/24/16 17:44:00 CDT, Duration: 30 day, Stop date: 07/24/16 17:43:00 CDT Morphine 8 mg, 2 mL, No Longer Route: IM, Drug Active 2016 [facility] form: INJ, Q3H, Dosing Weight 102.926, kg, PRN Pain Score 7-10, Start date: 06/24/16 17:44:00 CDT, Duration: 30 day, Stop date: 07/24/16 17:43:00 CDTNotes: (Same as:MORPhine Sulfate) Albuterol 0.833 3 ml, Route: NEB, No Longer MG/ML / Drug Form: SOLN, Active 2016 [facility] Ipratropium Dosing Weight [place] 0.167 103.653, kg, PRN, MG/ML Inhalant PRN Respiratory Solution Protocol, Start date: 06/24/16 17:44:00 CDT, Duration: 30 day, Stop date: 07/24/16 17:43:00 CDTNotes: (Same as: Duoneb) Glucagon 1 mg, Route: IM, No Longer Drug form: Active 2016 [facility] PDR/INJ, PRN, Dosing Weight 103.653, kg, PRN Blood Glucose Results, Start date: 06/24/16 17:44:00 CDT, Duration: 30 day, Stop date: 07/24/16 17:43:00 CDT Nitroglycerin 0.4 mg, 1 tab, No Longer Route: SL, Drug Active 2016 [facility] form: TAB, Q5Min, Dosing Weight 103.653, kg, PRN Chest Pain, Start date: 06/24/16 17:44:00 CDT, Duration: 3 doses or times, Stop date: Limited # of timesNotes: (Same as:Nitroquick, Nitrostat) "Do Not Crush" Sublingual tablet Docusate 100 mg, 1 cap, No Longer Route: PO, Drug Active 2016 [facility] form: CAP, BID, Dosing Weight 103.653, kg, PRN Constipation, Start date: 06/24/16 17:44:00 CDT, Duration: 30 day, Stop date: 07/24/16 17:43:00 CDTNotes: (Same as: Colace) (Do Not Crush) Ondansetron 4 mg, 2 mL, Inactive Route: IVP, Drug 2016 [facility] form: INJ, Q8H, Dosing Weight 103.653, kg, PRN Nausea & Vomiting, Start date: 06/24/16 17:44:00 CDT, Duration: 30 day, Stop date: 07/24/16 17:43:00 CDTNotes: (Same as: Zofran) MEDICATION WASTE Product Size: 4 mg Product Wasted: ___ mg Dextrose 50% 25 gm, 50 mL, No Longer Syringe Route: IVP, Drug Active 2016 [facility] Form: INJ, Dosing Weight 103.653, kg, PRN, PRN Blood Glucose Results, Start date: 06/24/16 17:44:00 CDT, Duration: 30 day, Stop date: 07/24/16 17:43:00 CDT Acetaminophen 650 mg, 2 tab, No Longer Route: PO, Drug Active 2016 [facility] form: TAB, Q4H, Dosing Weight 103.653, kg, PRN Pain 1-3/Temp > 100.4 F, Start date: 06/24/16 17:44:00 CDT, Duration: 30 day, Stop date: 07/24/16 17:43:00 CDTNotes: Do not exceed 4 gm/day. (Same as: Tylenol) vasopressin Route: IV, Drug Inactive 06/24/ MH (ANES) form: INJ, ONCE, 2016 [facility] Stop date: 06/24/16 17:40:00 CDT ondansetron Route: IV, Drug Inactive 06/24/ MH (ANES) form: INJ, ONCE, 2016 Stop date: 06/24/16 17:23:00 CDT protamine Route: IV, Drug Inactive 06/24/ MH (ANES) form: INJ, ONCE, 2016 [facility] Stop date: 06/24/16 17:03:00 CDT calcium Route: IV, Drug Inactive MH chloride (ANES) form: INJ, ONCE, 2016 [facility] Stop date: 06/24/16 16:48:00 CDT nitroglycerin Route: IV, Drug Inactive MH (ANES) form: INJ, ONCE, 2016 Stop date: 06/24/16 15:17:00 CDT heparin (ANES) Route: IV, Drug Inactive form: INJ, ONCE, 2016 [facility] Stop date: 06/24/16 15:07:00 CDT fentaNYL (ANES) Route: IV, Drug Inactive MH form: INJ, ONCE, 2016 [facility] Stop date: 06/24/16 14:31:00 CDT ePHEDrine [...] Inactive 06/24/ MH form: INJ, ONCE, 2016 [facility] Stop date: 06/24/16 14:06:00 CDT Amicar (ANES) Route: IV, Drug Inactive MH (ANES) + form: INJ, Dosing 2016 [facility] Weight 103.7, kg, Start date: 06/24/16 13:35:00 CDT, Stop date: 06/24/16 14:35:00 CDT vancomycin Route: IV, Drug Inactive 06/24/ MH (ANES) (ANES) form: INJ, Start 2016 [facility] date: 06/24/16 13:29:00 CDT, Stop date: 06/24/16 14:29:00 CDT midazolam Route: IV, Drug Inactive MH (ANES) form: SOLN, ONCE, 2016 [facility] Stop date: 06/24/16 13:11:00 CDT morphine Route: IV, Drug Inactive MH Sulfate (ANES) form: INJ, ONCE, 2016 [facility] Stop date: 06/24/16 13:11:00 CDT Isolyte S (PH Route: IV, Total Inactive MH 7.4) 1000 mL Volume: 1,000, 2016 [facility] (ANES) Start date: 06/24/16 12:39:00 CDT, Stop date: 06/24/16 13:39:00 CDT sodium chloride 1,000 mL, Rate: No Longer MH 0.9% 1000 ml 125 ml/hr, Infuse Active 2016 [facility] INJ 1,000 mL over: 8 hr, Route: IV, Dosing Weight 99.563 kg, Total Volume: 1,000, Start date: 06/22/16 7:35:00 CDT, Duration: 30 day, Stop date: 07/22/16 7:34:00 CDT Sodium Chloride 250 mL, 250 Inactive MH 0.154 MEQ/ML ml/hr, Infuse 2017 [facility] Injectable Over: 1 hr, Solution Route: IV, 250, Drug form: INJ, ONCE, Priority: STAT, Dosing Weight 99.563 kg, Start date: 06/22/16 7:34:00 CDT, Duration: 1 doses or times, Stop date: 06/22/16 7:34:00 CDT sodium chloride 1,000 mL, Rate: Inactive 06/22/ MH 0.9% 1000 ml 125 ml/hr, Infuse 2017 [facility] INJ 1,000 mL over: 8 hr, Route: IV, Dosing Weight 99.563 kg, Total Volume: 1,000, Start date: 06/22/16 7:19:00 CDT, Duration: 30 day, Stop date: 07/22/16 7:18:00 CDT Lopressor 50 mg, 1 tab, No Longer Route: PO, Drug Active 2016 [facility] form: TAB, BID, Dosing Weight 102.926, kg, Start date: 06/19/16 18:00:00 CDT, Duration: 30 day, Stop date: 07/19/16 17:00:00 CDTNotes: (Same as: Lopressor) Lopressor 50 mg, 1 tab, Inactive Route: PO, Drug 2016 [facility] form: TAB, Q8Hnow, Dosing Weight 102.926, kg, Start date: 06/19/16 17:00:00 CDT, Duration: 30 day, Stop date: 07/19/16 9:00:00 CDTNotes: (Same as: Lopressor) Levemir 10 unit, 0.1 mL, No Longer Route: SUB-Q, Active 2016 [facility] Drug form: INJ, Bedtime, Dosing Weight 102.926, kg, Start date: 06/17/16 21:00:00 CDT, Duration: 30 day, Stop date: 07/16/16 21:00:00 CDTNotes: Same as Levemir Do not hold insulin without contacting prescriber WASTE: F/P - Black; E - Municipal Trash Bin "single patient use only" Saline Flush 10 ml, Route: No Longer 0.9% IVP, Drug Form: Active 2016 [facility] INJ, Dosing Weight 102.926, kg, Q12H, Start date: 06/17/16 21:00:00 CDT, Duration: 30 day, Stop date: 07/17/16 9:00:00 CDTNotes: (Same as: BD Posiflush) chlorhexidine 15 ml, Route: No Longer gluconate 1.2 S&SPIT, BID, Drug Active 2016 [facility] MG/ML Mouthwash form: LIQ, Start date: 06/17/16 20:00:00 CDT, Duration: 30 day, Stop date: 07/17/16 17:00:00 CDTNotes: (Same As: Peridex) Cefazolin 2 gm, 100 mL, No Longer Route: IVPB, Drug Active 2016 [facility] form: INJ, ONCALL, Dosing Weight 102.926, kg, Start date: 06/17/16 19:00:00 CDT, Duration: 30 day, Stop date: 07/17/16 18:59:00 CDTNotes: Same as: Ancef Mupirocin 0.02 1 appl, Route: No Longer MG/MG Topical NASAL, ONCALL, Active 2016 [facility] Ointment Drug form: OINT, Start date: 06/17/16 19:00:00 CDT, Duration: 30 day, Stop date: 07/17/16 18:59:00 CDT sodium chloride 250 mL, Rate: On No Longer 0.9% INJ 250 mL call for use with Active 2016 [facility] blood product administration, Dosing Weight 102.926, kg, Route: IV, Total Volume: 250, Start Date: 06/17/16 18:54:00 CDT, Duration: 30 day, Stop date: 07/17/16 18:53:00 CDT, Replace Every: 24 hr Saline Flush 10 ml, Route: No Longer 0.9% IVP, Drug Form: Active 2016 [facility] INJ, Dosing Weight 102.926, kg, PRN, PRN Line Flush, Start date: 06/17/16 18:54:00 CDT, Duration: 30 day, Stop date: 07/17/16 18:53:00 CDTNotes: (Same as: BD Posiflush) metoprolol 12.5 mg, Route: Inactive tartrate PO, Drug form: 2016 [facility] TAB, Q12H, Dosing Weight 102.926, kg, Priority: NOW, Start date: 06/17/16 18:54:00 CDT, Duration: 30 day, Stop date: 07/17/16 9:00:00 CDT Nitroglycerin 1 inch, Route: No Longer 0.02 MG/MG TOP, Drug Form: Active 2016 [facility] Topical OINT, Dosing Ointment Weight 102.926, kg, Q6H, Start date: 06/17/16 12:00:00 CDT, Duration: 30 day, Stop date: 07/17/16 6:00:00 CDTNotes: 1 gram is approximately 1 inch of nitroglycerin ointment (20 mg NTG per gram) (Same as:Nitro-Bid) Enoxaparin 100 mg, 1 mL, No Longer Route: SUB-Q, Active 2016 [facility] Drug form: INJ, [id number], Dosing Weight 102.926, kg, Start date: 06/17/16 9:00:00 CDT, Duration: 30 day, Stop date: 07/16/16 21:00:00 CDTNotes: Nurse to ensure documentation of patient education per anticoagulation policy. (Same as: Lovenox) Albuterol 0.833 3 mL, Route: NEB, No Longer MG/ML / Drug Form: SOLN, Active 2016 [facility] Ipratropium Dosing Weight [facility] 0.167 102.926, kg, MG/ML Inhalant RQ6H, Start date: Solution 06/16/16 20:00:00 [DuoNeb] CDT, Duration: 30 day, Stop date: 07/16/16 14:00:00 CDTNotes: (Same as: Duoneb) Budesonide 0.25 0.5 mg, 2 mL, No Longer MG/ML Inhalant Route: NEB, Drug Active 2016 [facility] Solution form: SUSP, [Pulmicort] RQ12H, Dosing Weight 102.926, kg, Start date: 06/16/16 18:32:00 CDT, Duration: 30 day, Stop date: 07/16/16 16:00:00 CDTNotes: (Same As: Pulmicort) Solu-Medrol 80 mg, 1.28 mL, Inactive Route: IVP, Drug 2016 [facility] form: INJ, ONCE, Dosing Weight 102.926, kg, Start date: 06/16/16 18:12:00 CDT, Stop date: 06/16/16 18:12:00 CDTNotes: (Same as:Solu-MEDROL, A-Methapred) Lovenox 100 mg, 1 mL, Inactive Route: SUB-Q, 2016 [facility] Drug form: INJ, ONCE, Dosing Weight 102.926, kg, Start date: 06/16/16 18:00:00 CDT, Stop date: 06/16/16 18:00:00 CDTNotes: Nurse to ensure documentation of patient education per anticoagulation policy. (Same as: Lovenox) Sodium Chloride 250 mL, 250 No Longer 0.154 MEQ/ML ml/hr, Infuse Active 2016 [facility] Injectable Over: 1 hr, Solution Route: IV, 250, Drug form: INJ, ONCALL, Priority: Routine, Dosing Weight 102.926 kg, Start date: 06/16/16 17:00:00 CDT, Duration: 1 doses or times Sodium Chloride 750 mL, Rate: 75 Inactive 0.154 MEQ/ML ml/hr, Infuse 2016 [facility] Injectable over: 10 hr, Solution Route: IV, Dosing Weight 102.926 kg, Total Volume: 750, Start date: 06/16/16 16:15:00 CDT, Stop date: 06/17/16 16:14:00 CDT acetaminophen-c 1 tab, Route: PO, No Longer odeine #3 Drug Form: TAB, Active 2016 [facility] Dosing Weight 102.926, kg, Q4H, PRN Pain Score 4-6, Start date: 06/16/16 16:11:00 CDT, Duration: 30 day, Stop date: 07/16/16 16:10:00 CDTNotes: Do not exceed 4gm/day of acetaminophen. (Same as: Tylenol with Codeine # 3) Acetaminophen 650 mg, 2 tab, No Longer Route: PO, Drug Active 2016 [facility] form: TAB, Q4H, Dosing Weight 102.926, [...] 0.9% IV IVPB, Start date: Active 2016 [facility] 06/16/16 15:49:00 CDT, Duration: 30 day, Stop date: 07/16/16 15:48:00 CDT, PRN Line Flush Dextrose 50% 25 gm, 50 mL, No Longer Syringe Route: IVP, Drug Active 2016 [facility] Form: INJ, Dosing Weight 102.926, kg, PRN, PRN Blood Glucose Results, Start date: 06/16/16 15:45:00 CDT, Duration: 30 day, Stop date: 07/16/16 15:44:00 CDT Insulin, 5 unit, 0.05 mL, No Longer Aspart, Human Route: SUB-Q, Active 2016 [facility] Drug form: SOLN, TID-Before Meals, Dosing [...] IM, No Longer Drug form: Active 2016 [facility] PDR/INJ, PRN, Dosing Weight 102.926, kg, PRN Blood Glucose Results, Start date: 06/16/16 15:45:00 CDT, Duration: 30 day, Stop date: 07/16/16 15:44:00 CDT Sodium Chloride 1,000 mL, Rate: Inactive 0.154 MEQ/ML 100 ml/hr, Infuse 2016 [facility] Injectable over: 10 hr, Solution Route: IV, Dosing Weight 102.926 kg, Total Volume: 1,000, Start date: 06/16/16 9:19:00 CDT, Duration: 30 day, Stop date: 07/16/16 9:18:00 CDT aspirin 81 mg 81 mg, 1 tab, No Longer tablet, enteric Route: PO, Drug Active 2016 [facility] coated form: ECTAB, Daily, Dosing Weight 102.926, kg, Start date: 06/16/16 9:00:00 CDT, Duration: 30 day, Stop date: 07/15/16 9:00:00 CDTNotes: Do not crush or chew. (Same As: Ecotrin) Nitroglycerin 0.5 inch, Route: Inactive 0.02 MG/MG TOP, Drug Form: 2016 [facility] Topical OINT, Dosing Ointment Weight 102.926, kg, TID, Start date: 06/16/16 6:00:00 CDT, Duration: 30 day, Stop date: 07/15/16 18:00:00 CDTNotes: 1 gram is approximately 1 inch of nitroglycerin ointment (20 mg NTG per gram) (Same as:Nitro-Bid) metoprolol 50 mg, 1 tab, No Longer tartrate Route: PO, Drug Active 2016 [facility] form: TAB, Q8H, Dosing Weight 102.926, kg, Start date: 06/16/16 0:00:00 CDT, Duration: 30 day, Stop date: 07/15/16 16:00:00 CDTNotes: (Same as: Lopressor) Sodium Chloride 250 mL, 250 Inactive 0.154 MEQ/ML ml/hr, Infuse 2016 [facility] Injectable Over: 1 hr, Solution Route: IV, 250, Drug form: INJ, ONCALL, Priority: Routine, Dosing Weight 102.926 kg, Start date: 06/15/16 22:00:00 CDT, Duration: 1 doses or times Sodium Chloride 750 mL, Rate: 75 No Longer 0.154 MEQ/ML ml/hr, Infuse Active 2016 [facility] Injectable over: 10 hr, Solution Route: IV, Dosing Weight 102.926 kg, Total Volume: 750, Start date: 06/15/16 21:02:00 CDT, Duration: 24 hr, Stop date: 06/16/16 21:01:00 CDT Saline Flush 10 ml, Route: No Longer 0.9% IVP, Drug Form: Active 2016 [facility] INJ, Dosing Weight 102.926, kg, Q12H, Start date: 06/15/16 21:00:00 CDT, Duration: 30 day, Stop date: 07/15/16 9:00:00 CDTNotes: (Same as: BD Posiflush) atorvastatin 40 mg, 1 tab, No Longer Route: PO, Drug Active 2016 [facility] form: TAB, Bedtime, Dosing Weight 102.926, kg, Start date: 06/15/16 21:00:00 CDT, Duration: 30 day, Stop date: 07/14/16 21:00:00 CDTNotes: (Same as: Lipitor) metoprolol 25 mg, Route: PO, Inactive tartrate Drug form: TAB, 2016 [facility] Q12H, Dosing Weight 102.926, kg, Start date: 06/15/16 21:00:00 CDT, Duration: 30 day, Stop date: 07/15/16 9:00:00 CDT Enoxaparin 100 mg, 1 mL, No Longer Route: SUB-Q, Active 2016 [facility] Drug form: INJ, [id number], Dosing Weight 102.926, kg, Start date: 06/15/16 19:00:00 CDT, Duration: 30 day, Stop date: 07/15/16 7:00:00 CDTNotes: Nurse to ensure documentation of patient education per anticoagulation policy. (Same as: Lovenox) Albuterol 0.833 3 ml, Route: NEB, No Longer MG/ML / Drug Form: SOLN, Active 2016 [facility] Ipratropium Dosing Weight [facility] 0.167 102.926, kg, PRN, MG/ML Inhalant PRN Respiratory Solution Protocol, Start [DuoNeb] date: 06/15/16 13:56:00 CDT, Duration: 30 day, Stop date: 07/15/16 13:55:00 CDTNotes: (Same as: Duoneb) Saline Flush 10 ml, Route: No Longer 0.9% IVP, Drug Form: Active 2016 [facility] INJ, Dosing Weight 102.926, kg, PRN, PRN Line Flush, Start date: 06/15/16 13:52:00 CDT, Duration: 30 day, Stop date: 07/15/16 13:51:00 CDTNotes: (Same as: BD Posiflush) Labetalol 20 mg, 4 mL, No Longer Route: IVP, Drug Active 2016 [facility] form: INJ, Q4H, Dosing Weight 102.926, kg, PRN Hypertension, Start date: 06/15/16 13:52:00 CDT, Duration: 30 day, Stop date: 07/15/16 13:51:00 CDT, for SBP>180 or DBP>110, hold if HRNotes: (Same as: Normodyne, Trandate) Push over 2 minutes Give bolus over 2-3 minutes. Trazodone 50 mg, 1 tab, No Longer Hydrochloride Route: PO, Drug Active 2016 [facility] 50 MG Oral form: TAB, Tablet Bedtime, Dosing Weight 102.926, kg, PRN Insomnia, Start date: 06/15/16 13:52:00 CDT, Duration: 30 day, Stop date: 07/15/16 13:51:00 CDTNotes: (Same As: Desyrel) Miralax 17 gm, 1 pkt, No Longer Route: PO, Drug Active 2016 [facility] form: PWDR, Daily, Dosing Weight 102.926, kg, PRN Constipation, Start date: 06/15/16 13:52:00 CDT, Duration: 30 day, Stop date: 07/15/16 13:51:00 CDTNotes: Dissolve in 8 oz of water or juice. (Same as: Miralax) Nitroglycerin 0.4 mg, 1 tab, No Longer Route: SL, Drug Active 2016 [facility] form: TAB, Q5Min, Dosing Weight 102.926, kg, PRN Chest Pain, Start date: 06/15/16 13:52:00 CDT, Duration: 3 doses or times, Stop date: Limited # of timesNotes: (Same as:Nitroquick, Nitrostat) "Do Not Crush" Sublingual tablet Morphine 1 mg, 0.5 mL, No Longer Route: IVP, Drug Active 2016 [facility] form: INJ, Q2H, Dosing Weight 102.926, kg, PRN Chest Pain, Start date: 06/15/16 13:52:00 CDT, Duration: 2 doses or times, Stop date: Limited # of timesNotes: (Same as:MORPhine Sulfate) Ondansetron 4 mg, 1 tab, No Longer Route: PO, Drug Active 2016 [facility] form: TAB, Q8H, Dosing Weight 102.926, kg, PRN Nausea & Vomiting, Start date: 06/15/16 13:52:00 CDT, Duration: 30 day, Stop date: 07/15/16 13:51:00 CDTNotes: (Same as: Zofran) Allergies, Adverse Reactions, Alerts Substance Category Reaction Severity Reaction Status Date Comments Source type Reported Betadine Assertion Drug Active allergy [facility] Immunizations Immunization Date Site Status Last Updated Comments Source Given pneumococcal Right completed [facility] 13-valent 7 deltoid vaccine Results Order Name [...] is not recommended in the following populations: [facility] 3m2 Individuals with unstable creatinine concentrations, [...] Lvl 104 mg/dL 70 - 99 06/30 [facility] CHEM PANEL Potassium 4.0 meq/L 3.5 - 5.1 06/30 Lvl [facility] CHEM PANEL Sodium Lvl 140 meq/L 135 - 145 06/30 [facility] CHEM PANEL Creatinine 1.10 mg/dL 0.50 - 06/30 Lvl 1.40 [facility] CHEM PANEL BUN 21 mg/dL 7 - 22 06/30 [facility] CHEM PANEL AGAP 13.0 meq/L 10.0 - 04/ MH 20.0 [facility] CHEM PANEL CO2 27 meq/L 24 - 32 06/30 [facility] CHEM PANEL Calcium Lvl 8.2 mg/dL 8.5 - 10.5 06/30 [facility] CHEM PANEL Chloride Lvl 104 meq/L 95 - 109 06/30 [facility] Chest Chest 1view Clinical Indication:65 years Male with Tube placement/ removal/reposition 06/30 - 1view DX DX /2016 - [facility] Comparison: Chest x-ray of 06/27/2016 Read [...] mg/dL 1.8 - 2.4 06/29 Lvl /2016 [facility] ELECTROLYT AGAP 15.4 meq/L 10.0 - 06/29 ES 20.0 [facility] ELECTROLYT eGFR 69 06/29 Result Comment: [...] is not recommended in the following populations: [facility] 3m2 Individuals with unstable creatinine concentrations, [...] Lvl 110 mg/dL 70 - 99 06/29 [facility] ELECTROLYT BUN 26 mg/dL 7 - 22 06/29 [facility] ELECTROLYT Chloride Lvl 105 meq/L 95 - 109 06/29 [facility] ELECTROLYT Creatinine 1.10 mg/dL 0.50 - 04 [facility] Lvl 1.40 /2016 [facility] ELECTROLYT Sodium Lvl 137 meq/L 135 - 145 06/29 [facility] ELECTROLYT Potassium 4.4 meq/L 3.5 - 5.1 06/29 [facility] ELECTROLYT CO2 21 meq/L 24 - 32 06/29 [facility] ELECTROLYT Calcium Lvl 8.1 mg/dL 8.5 - 10.5 06/29 [facility] HEMATOLOGY Basophils 0.3 % 0.0 - 1.0 06/29 [facility] HEMATOLOGY Segs-Bands # 9.5 K/CMM 1.5 - 8.1 06/29 [facility] HEMATOLOGY Lymphocytes 1.2 K/CMM 1.0 - 5.5 06/29 [facility] HEMATOLOGY Monocytes # 1.4 K/CMM 0.0 - 0.8 06/29 [facility] HEMATOLOGY Basophils # 0.0 K/CMM 0.0 - 0.2 06/29 [facility] HEMATOLOGY Eosinophils 0.2 K/CMM 0.0 - 0.5 06/29 [facility] HEMATOLOGY Polychrom Moderate None Seen 06/29 [facility] *ABN* (06/29/16 5:06 AM) HEMATOLOGY Plt Morph Normal 06/29 [facility] (06/29/16 5:06 AM) HEMATOLOGY Lymphocytes 9.7 % 20.0 - 06/29 40.0 [facility] HEMATOLOGY Segs 77.0 % 45.0 - 06/29 75.0 [facility] HEMATOLOGY Eosinophils 1.6 % 0.0 - 4.0 06/29 [facility] HEMATOLOGY Monocytes 11.4 % 2.0 - 12.0 06/29 [facility] HEMATOLOGY MCH 28.6 pg 27.0 - 06/29 MH 31.0 [facility] Platelet 163 K/CMM 133 - 450 04 [facility] HEMATOLOGY RDW 14.2 % 11.5 - 06/29 MH 14.5 [facility] HEMATOLOGY MCHC 33.9 g/dL 32.0 - 06/29 MH 36.0 /2016 [facility] MPV 8.3 fL 7.4 - 10.4 06/29 [facility] HEMATOLOGY RBC 3.11 M/CMM 4.70 - 06/29 6.10 [facility] HEMATOLOGY WBC 12.3 K/CMM 3.7 - 10.4 06/29 [facility] HEMATOLOGY MCV 84.3 fL 80.0 - 06/29 MH 94.0 /2016 [facility] HEMATOLOGY Hct 26.2 % 42.0 - 06/29 54.0 [facility] Hgb 8.9 g/dL 14.0 - 06/29 18.0 [facility] CHEM PANEL eGFR 56 06/28 Result [...] is not recommended in the following populations: [facility] 3m2 Individuals with unstable creatinine concentrations, [...] Lvl 8.3 mg/dL 8.5 - 10.5 06/28 [facility] CHEM PANEL Potassium 4.5 meq/L 3.5 - 5.1 06/28 Lvl [facility] CHEM PANEL CO2 24 meq/L 24 - 32 06/28 [facility] CHEM PANEL Chloride Lvl 107 meq/L 95 - 109 06/28 [facility] CHEM PANEL Glucose Lvl 118 mg/dL 70 - 99 06/28 [facility] CHEM PANEL BUN 29 mg/dL 7 - 22 06/28 [facility] CHEM PANEL Sodium Lvl 139 meq/L 135 - 145 04/ /2016 [facility] CHEM PANEL Creatinine 1.30 mg/dL 0.50 - 06/28 MH Lvl 1.40 /2016 [facility] CHEM PANEL AGAP 12.5 meq/L 10.0 - 06/28 MH 20.0 [facility] CHEM PANEL Magnesium 2.7 mg/dL 1.8 - 2.4 06/28 MH Lvl /2016 [facility] HEMATOLOGY Hgb 9.0 g/dL 14.0 - 06/28 MH 18.0 /2016 [facility] HEMATOLOGY Hct 27.7 % 42.0 - 06/28 MH 54.0 /2016 [facility] HEMATOLOGY MCV 87.2 fL 80.0 - 06/28 MH 94.0 [facility] HEMATOLOGY MCH 28.5 pg 27.0 - 06/28 31.0 [facility] MCHC 32.6 g/dL 32.0 - 06/28 36.0 [facility] HEMATOLOGY WBC 11.9 K/CMM 3.7 - 10.4 06/28 [facility] HEMATOLOGY RBC 3.17 M/CMM 4.70 - 06/28 MH 6.10 [facility] HEMATOLOGY RDW 14.6 % 11.5 - 06/28 MH 14.5 [facility] HEMATOLOGY Platelet 136 K/CMM 133 - 450 06/28 [facility] HEMATOLOGY MPV 8.6 fL 7.4 - 10.4 06/28 [facility] HEMATOLOGY Lymphocytes 1.5 K/CMM 1.0 - 5.5 06/28 MH # /2016 [facility] HEMATOLOGY Monocytes # 1.4 K/CMM 0.0 - 0.8 06/28 [facility] HEMATOLOGY Eosinophils 0.1 K/CMM 0.0 - 0.5 06/28 # /2016 [facility] HEMATOLOGY Lymphocytes 12.3 % 20.0 - 06/28 MH 40.0 [facility] HEMATOLOGY Monocytes 11.6 % 2.0 - 12.0 06/28 [facility] HEMATOLOGY Eosinophils 1.1 % 0.0 - 4.0 06/28 [facility] HEMATOLOGY Basophils 0.3 % 0.0 - 1.0 06/28 [facility] HEMATOLOGY Segs-Bands # 8.9 K/CMM 1.5 - 8.1 06/28 [facility] HEMATOLOGY Segs 74.7 % 45.0 - 06/28 75.0 /2016 [facility] CHEM PANEL Magnesium 2.4 mg/dL 1.8 - 2.4 / Lvl /2016 [facility] HEMATOLOGY WBC 18.6 K/CMM 3.7 - 10.4 06/27 /2016 [facility] HEMATOLOGY RDW 14.7 % 11.5 - 06/27 14.5 /2016 [facility] HEMATOLOGY MCHC 33.1 g/dL 32.0 - 06/27 36.0 /2016 [facility] HEMATOLOGY Hct 29.5 % 42.0 - 06/27 54.0 /2016 [facility] HEMATOLOGY MCH 28.1 pg 27.0 - 06/27 31.0 /2016 [facility] HEMATOLOGY MCV 84.7 fL 80.0 - 06/27 94.0 /2016 [facility] HEMATOLOGY MPV 9.7 fL 7.4 - 10.4 06/27 [facility] HEMATOLOGY Platelet 118 K/CMM 133 - 450 06/27 [facility] Hgb 9.8 g/dL 14.0 - 06/27 18.0 /2016 [facility] HEMATOLOGY RBC 3.48 M/CMM 4.70 - 06/27 6.10 /2016 [facility] HEMATOLOGY Lymphocytes 2.0 K/CMM 1.0 - 5.5 / MH # /2016 [facility] HEMATOLOGY Segs 76.1 % 45.0 - 06/27 75.0 [facility] HEMATOLOGY Eosinophils 0.1 % 0.0 - 4.0 06/27 [facility] HEMATOLOGY Monocytes 12.7 % 2.0 - 12.0 06/27 [facility] HEMATOLOGY Segs-Bands # 14.2 K/CMM 1.5 - 8.1 06/27 [facility] HEMATOLOGY Basophils 0.5 % 0.0 - 1.0 06/27 [facility] HEMATOLOGY Lymphocytes 10.6 % 20.0 - 06/27 40.0 /2016 [facility] HEMATOLOGY Basophils # 0.1 K/CMM 0.0 - 0.2 06/27 [facility] HEMATOLOGY Monocytes # 2.4 K/CMM 0.0 - 0.8 06/27 [facility] Chest Chest 1view Study: Chest 1view DX 06/27 - 1view DX DX - [facility] Clinical Indication: Tube placement/removal/reposition Read by: Kaleb Melissa MD Dictated Date/time: 06/27/16 08:13 Electronically Signed by: Kaleb Melissa MD 06/27/16 08:15 FINAL REPORT Comparison: Chest x-ray from 06/26/2016 FINDINGS: 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 Right internal jugular central line is stable. Eureka-Cristian cath eter has been removed. Cardiac silhouette is normal in size. Calcified AP window lymph node is noted. Lung volumes are diminished and bibasilar atelectasis is seen. No pleural effusion or pneumothorax is seen. The osseous structures are unremarkable. IMPRESSION: Interval removal of Eureka-Cristian catheter SL: [id number] CHEM PANEL Phosphorus 2.0 mg/dL 2.5 - 4.5 06/26 /2016 [facility] HEMATOLOGY Eosinophils 0.0 K/CMM 0.0 - 0.5 06/26 # /2016 [facility] HEMATOLOGY Basophils # 0.0 K/CMM 0.0 - 0.2 06/26 [facility] PARATHYROI Ca Ion WB 1.11 . - 06/26 D PROFILE mMol/L . [facility] PARATHYROI Ca Norm WB 1.11 1.05 - 06/26 D PROFILE mMol/L . [facility] SPECIAL Hgb A1C 6.4 % <=5.6 % 06/26 CHEMISTRY /2016 [facility] Chest Chest 1view Clinical Indication:65 years Male with Tube placement/ removal/reposition 06/26 - 1view DX - [facility] Comparison: Chest x-ray 06/25/2016 Read by: [...] Phosphorus 1.6 mg/dL 2.5 - 4.5 06/25 [facility] HEMATOLOGY RBC Morph Normal 06/25 [facility] (06/25/16 2:28 AM) HEMATOLOGY Plt Morph Normal 06/25 [facility] (06/25/16 2:28 AM) PARATHYROI Ca Norm WB 1.06 1.05 - 06/25 D PROFILE mMol/L 04.20 [facility] PARATHYROI Ca Ion WB 1.09 1.05 - 06/25 D PROFILE mMol/L 04.20 [facility] Chest Chest 1view Chest 1view DX 06/25 - 1view DX DX /2016 - [facility] CLINICAL HISTORY:Tube placement/removal/reposition Read by: Brett [...] wires project over the patient's chest. SL: [id number] HEMATOLOGY POC 34.0 % 42.0 - 06/24 Hematocrit 54.0 [facility] HEMATOLOGY POC 11.6 g/dL 14.0 - 06/24 Hemoglobin 18.0 [facility] HEMATOLOGY POC Ion Ca 1.09 1.05 - 06/24 MH mMol/L . [facility] HEMATOLOGY POC 4.4 meq/L 3.5 - 5.1 06/24 Potassium /2016 [facility] HEMATOLOGY POC Sodium 143 meq/L 135 - 145 06/24 [facility] CHEM PANEL A/G Ratio 1.4 0.7 - 1.6 06/24 [facility] CHEM PANEL Globulin 2.1 g/dL 2.7 - 4.2 06/24 [facility] CHEM PANEL Bili 0.4 mg/dL 0.0 - 1.0 06/24 [facility] CHEM PANEL Bili Direct 0.2 mg/dL 0.0 - 0.3 06/24 [facility] CHEM PANEL Bili Total 0.6 mg/dL 0.2 - 1.3 06/24 [facility] CHEM PANEL Alk Phos 38 unit/L 39 - 136 06/24 [facility] CHEM PANEL AST 42 unit/L 0 - 37 06/24 [facility] CHEM PANEL ALT 51 unit/L 0 - 65 06/24 [facility] CHEM PANEL Albumin Lvl 2.9 g/dL 3.5 - 5.0 06/24 [facility] CHEM PANEL Total 5.0 g/dL 6.4 - 8.4 06/24 [facility] CHEM PANEL Phosphorus 2.3 mg/dL 2.5 - 4.5 06/24 [facility] HEMATOLOGY FSP <5 ug/ml <5 ug/ml 06/24 [facility] HEMATOLOGY Fibrinogen 206 mg/dL 230 - 510 06/24 Lvl [facility] HEMATOLOGY PTT 34.9 s 22.9 - 06/24 MH 35.8 [facility] HEMATOLOGY INR 1.27 0.85 - 06/24 1. [facility] HEMATOLOGY PT 16.2 s 12.0 - 06/24 14. [facility] PARATHYROI Ca Norm WB 1.09 1.05 - 06/24 D PROFILE mMol/L 1. [facility] PARATHYROI Ca Ion WB 1.10 1.05 - 06/24 D PROFILE mMol/L . [facility] HEMATOLOGY Fibrinogen 196 mg/dL 230 - 510 06/24 Lvl [facility] HEMATOLOGY PTT 32.8 s 22.9 - 06/24 35.8 [facility] HEMATOLOGY PT 16.6 s 12.0 - 06/24 14. [facility] HEMATOLOGY INR 1.32 0.85 - 06/24 1. [facility] Chest Chest 1view Patient Name: CHYNA RYAN 06/24 - 1view DX DX /2016 - [facility] : 1950; Age: 65 years y/o Male MR: [id number] Read by: Ted Hernandez MD Dictated Date/time: [...] base. 5. There is a right IJ Eureka-Cristian catheter. The catheter tip is in the expected location of the pulmonary valve. The Eureka-Cristian catheter does not extend into either main pulmonary artery. 6. The tip of the right IJ central venous catheter is in the lower superior vena cava. 7. There are mild scattered degenerative changes involving the thoracic spine. The regional skeleton is otherwise unremarkable. SL: [facility] BLOOD BANK Antibody Negative 06/24 RESULTS Scrn [facility] (06/24/16 4:15 AM) BLOOD BANK ABO/Rh A POS 06/24 RESULTS /2016 [facility] BLOOD BANK Platelet Product available 06/24 RESULTS product /2016 [facility] (06/24/16 4:00 AM) BLOOD BANK FFP product Product available 06/24 RESULTS /2016 [facility] (06/24/16 4:00 AM) BLOOD BANK Cryo product Product available 06/24 RESULTS /2016 [facility] (06/24/16 4:00 AM) BLOOD BANK RBC product Product available 06/24 RESULTS /2016 [facility] (06/24/16 4:00 AM) HEMATOLOGY INR 1.05 0.85 - 06/22 MH 1. /2016 [facility] HEMATOLOGY PTT 37.0 s 22.9 - 06/22 35.8 /2016 [facility] HEMATOLOGY PT 13.9 s 12.0 - 06/22 14.7 /2016 [facility] BLOOD BANK ABO/Rh A POS 06/20 RESULTS /2016 [facility] BLOOD BANK Antibody Negative 06/20 RESULTS Scrn [facility] (06/20/16 5:18 AM) HEMATOLOGY Plt Morph Normal 06/20 /2016 [facility] (06/20/16 5:18 AM) HEMATOLOGY RBC Morph Normal 06/20 /2016 [facility] (06/20/16 5:18 AM) MOLECULAR HCV RNA 6.9 06/20 DIAGNOSTIC Log10 [iU]/mL /2016 [facility] MOLECULAR HCV RNA [id number] 06/20 DIAGNOSTIC VirLoad [iU]/mL /2016 [facility] BLOOD BANK FFP product Product available 06/20 RESULTS /2016 [facility] (06/20/16 5:00 AM) BLOOD BANK Cryo product Product available 06/20 RESULTS /2016 [facility] (06/20/16 5:00 AM) BLOOD BANK RBC product Product available 06/20 RESULTS /2016 [facility] (06/20/16 5:00 AM) BLOOD BANK Platelet Product available 06/20 RESULTS product /2016 [facility] (06/20/16 5:00 AM) BACTERIAL MRSA by PCR Negative 06/18 - SEROLOGY /2016 [facility] (06/18/16 5:33 AM) CHEM PANEL B/C Ratio 18 6 - 25 06/18 [facility] CHEM PANEL Globulin 3.9 g/dL 2.7 - 4.2 06/18 [facility] CHEM PANEL A/G Ratio 0.8 0.7 - 1.6 06/18 [facility] CHEM PANEL ALT 67 unit/L 0 - 65 06/18 [facility] CHEM PANEL AST 74 unit/L 0 - 37 06/18 [facility] CHEM PANEL Total 7.1 g/dL 6.4 - 8.4 06/18 Protein [facility] CHEM PANEL Albumin Lvl 3.2 g/dL 3.5 - 5.0 06/18 [facility] CHEM PANEL Alk Phos 58 unit/L 39 - 136 06/18 [facility] CHEM PANEL Bili Total 0.4 mg/dL 0.2 - 1.3 06/18 [facility] LIPIDS CHD Risk 4.04 4.00 - 06/18 7.30 [facility] LIPIDS VLDL 16 06/18 [facility] LIPIDS LDL 121 mg/dL <=99 mg/dL 06/18 (Calculated) [facility] LIPIDS HDL 45 mg/dL >=61 mg/dL 06/18 [facility] LIPIDS Trig 82 mg/dL <=149 06/18 mg/dL [facility] LIPIDS Chol 182 mg/dL <=199 06/18 mg/dL [facility] [facility] SPECIAL Hgb A1C 6.4 % <=5.6 % 06/18 CHEMISTRY [facility] URINE AND UA null 0.1 - 1.0 06/18 STOOL Urobilinogen [facility] URINE AND UA Sq Epi None Seen 06/18 [facility] URINE AND UA RBC null 0 - 2 06/18 [facility] URINE AND UA Bili Negative Negative 06/18 [facility] *NA* (06/18/16 5:33 AM) URINE AND UA Ketones Negative Negative 06/18 STOOL mg/dL mg/dL [facility] URINE AND UA Glucose Negative Negative 06/18 STOOL mg/dL mg/dL [facility] URINE AND UA WBC null 0 - 5 06/18 [facility] URINE AND UA Leuk Est Negative Negative 06/18 [facility] (06/18/16 5:33 AM) URINE AND UA Nitrite Negative Negative 06/18 [facility] (06/18/16 5:33 AM) URINE AND UA Blood Negative Negative 06/18 [facility] (06/18/16 5:33 AM) URINE AND UA Protein Negative Negative 06/18 [facility] mg/dL mg/dL [facility] URINE AND UA Color Light Yellow Yellow 06/18 [facility] *NA* (06/18/16 5:33 AM) URINE AND UA Turbidity Clear Clear 06/18 [facility] (06/18/16 5:33 AM) URINE AND UA pH 5.0 5.0 - 8.0 06/18 [facility] URINE AND UA Spec Grav 1.008 <=1.030 06/18 [facility] Chest 2 Chest 2 CHEST, 2 VIEWS 06/18 - views DX views - [facility] HISTORY: ; Respiratory distress; Read by: Vikash Joseph MD Dictated Date/time: 06/18/16 09:54 Electronically Signed by: Vikash Joseph MD 06/18/16 09:55 FINAL REPORT COMPARISON: June 15, 2016 FINDINGS: Lungs are underinflated with mild bilateral basal atelectasis/infiltrate, left greater than right. No pleural effusion or pneumothorax. Stable mediastinum. No acute osseous abnormality. SL: [id number] URINE AND UA Turbidity Clear Clear 06/18 [facility] (06/17/16 11:28 PM) URINE AND UA pH 6.0 5.0 - 8.0 06/18 [facility] URINE AND UA Color Light Yellow Yellow 06/18 [facility] *NA* (06/17/16 11:28 PM) URINE AND UA Spec Grav 1.010 <=1.030 06/18 STOOL [facility] URINE AND UA WBC 1 /HPF 0 - 5 06/18 STOOL [facility] URINE AND UA Bacteria Occasional None Seen 06/18 STOOL /HPF /HPF [facility] URINE AND UA Glucose Negative Negative 06/18 [facility] mg/dL mg/dL [facility] URINE AND UA Protein Negative Negative 06/18 [facility] mg/dL mg/dL [facility] URINE AND UA null 0.1 - 1.0 06/18 STOOL Urobilinogen /2016 [facility] URINE AND UA Sq Epi None Seen 06/18 STOOL [facility] URINE AND UA Leuk Est Negative Negative 06/18 STOOL [facility] (06/17/16 11:28 PM) URINE AND UA Nitrite Negative Negative 06/18 STOOL [facility] (06/17/16 11:28 PM) URINE AND UA Blood Negative Negative 06/18 STOOL [facility] (06/17/16 11:28 PM) URINE AND UA Bili Negative Negative 06/18 [facility] *NA* (06/17/16 11:28 PM) URINE AND UA Ketones Negative Negative 06/18 [facility]OOL mg/dL mg/dL [facility] Abdomen Abdomen RUQ ULTRASOUND ABDOMEN RIGHT UPPER QUADRANT 06/17 RUQ US - [facility] HISTORY: Abnormal Lab tests- LFT; Read [...] right abdominal ascites. IMPRESSION: Normal study. SL: [id number] LIPIDS CHD Risk 4.26 4.00 - 06/16 MH 7.30 [facility] LIPIDS VLDL 22 06/16 [facility] LIPIDS LDL 118 mg/dL <=99 mg/dL 06/16 (Calculated) /2016 [facility] LIPIDS HDL 43 mg/dL >=61 mg/dL 06/16 [facility] LIPIDS Chol 183 mg/dL <=199 06/16 mg/dL /2016 [facility] LIPIDS Trig 112 mg/dL <=149 06/16 mg/dL /2017 [facility] CARDIAC Total CK 384 unit/L 12 - 191 06/16 ENZYMES /2017 [facility] CARDIAC Troponin-I 7.44 ng/mL 0.00 - 06/16 Result ENZYMES 0.40 /2017 Comment: [facility] Critical Result(s) called to Missael Alvarenga at 06/15/2016 20:33 by TW. Read back OK. CARDIAC CK MB Index 4.4 0.0 - 2.5 06/16 ENZYMES /2016 [facility] CARDIAC CK MB 17.0 ng/mL 0.5 - 3.6 06/16 ENZYMES /2017 [facility] CARDIAC CK MB Index 4.8 0.0 - 2.5 06/15 ENZYMES /2017 [facility] CARDIAC Total CK 412 unit/L 12 - 06/15 ENZYMES /2017 [facility] CARDIAC CK MB 19.8 ng/mL 0.5 - 3.6 06/15 ENZYMES /2017 [facility] CARDIAC Troponin-I 6.52 ng/mL 0.00 - 06/15 Result ENZYMES 0.40 /2017 Comment: [facility] Critical Result(s) called to Robert long at 06/15/2016 16:44 by TW. Read back OK. CHEM PANEL Globulin 3.7 g/dL 2.7 - 4.2 06/15 /2016 [facility] CHEM PANEL A/G Ratio 0.9 0.7 - 1.6 06/15 /2016 [facility] CHEM PANEL B/C Ratio 19 6 - 25 06/15 [facility] CHEM PANEL Bili Total 0.5 mg/dL 0.2 - 1.3 06/15 [facility] CHEM PANEL Albumin Lvl 3.3 g/dL 3.5 - 5.0 06/15 [facility] CHEM PANEL Total 7.0 g/dL 6.4 - 8.4 06/15 [facility] CHEM PANEL Alk Phos 68 unit/L 39 - 136 06/15 [facility] CHEM PANEL AST 51 unit/L 0 - 37 06/15 [facility] CHEM PANEL ALT 44 unit/L 0 - 65 06/15 [facility] DRUG U Cannab Scr Negative Negative 06/15 SCREEN /2016 [facility] *NA* (06/15/16 2:56 PM) DRUG U Phencyc Negative Negative 06/15 SCREEN Scr /2016 [facility] *NA* (06/15/16 2:56 PM) DRUG U Opiate Scr Negative Negative 06/15 SCREEN [facility] *NA* (06/15/16 2:56 PM) DRUG U Cocaine Negative Negative 06/15 SCREEN Scr [facility] *NA* (06/15/16 2:56 PM) DRUG U Benzodia Negative Negative 06/15 SCREEN Scr [facility] *NA* (06/15/16 2:56 PM) DRUG U Amph Scr Negative Negative 06/15 SCREEN [facility] *NA* (06/15/16 2:56 PM) DRUG U Elsy Scr Negative Negative 06/15 SCREEN [facility] *NA* (06/15/16 2:56 PM) DRUG UDS Note See Note 06/15 SCREEN [facility] (06/15/16 2:56 PM) IMMUNOLOGY Hep Bs Ag Negative Negative 06/15 [facility] *NA* (06/15/16 2:56 PM) IMMUNOLOGY Hep B Core Negative Negative 06/15 IgM /2016 [facility] *NA* (06/15/16 2:56 PM) IMMUNOLOGY Hep C Ab Positive 06/15 [facility] *ABN* (06/15/16 2:56 PM) IMMUNOLOGY Hep A IgM Negative Negative 06/15 [facility] *NA* (06/15/16 2:56 PM) SPECIAL Hgb A1C 6.6 % <=5.6 % 06/15 CHEMISTRY /2016 [facility] URINE AND UA pH 5.5 5.0 - 8.0 06/15 STOOL [facility] URINE AND UA Spec Grav 1.020 <=1.030 06/15 STOOL [facility] URINE AND UA Protein Negative Negative 06/15 STOOL /2016 [facility] (06/15/16 2:56 PM) URINE AND UA Turbidity Clear Clear 06/15 STOOL [facility] (06/15/16 2:56 PM) URINE AND UA Leuk Est Negative Negative 06/15 STOOL [facility] (06/15/16 2:56 PM) URINE AND Micro? Not Indicated 06/15 STOOL [facility] (06/15/16 2:56 PM) URINE AND UA Glucose Negative Negative 06/15 STOOL [facility] (06/15/16 2:56 PM) URINE AND UA Bili Negative Negative 06/15 STOOL [facility] *NA* (06/15/16 2:56 PM) URINE AND UA Ketones Negative Negative 06/15 STOOL [facility] *NA* (06/15/16 2:56 PM) URINE AND UA Blood Negative Negative 06/15 STOOL [facility] (06/15/16 2:56 PM) URINE AND UA Nitrite Negative Negative 06/15 STOOL [facility] (06/15/16 2:56 PM) URINE AND UA 0.2 EU/dL 0.1 - 1.0 06/15 STOOL Urobilinogen [facility] URINE AND UA Color Yellow Yellow 06/15 STOOL [facility] *NA* (06/15/16 2:56 PM) Chest 2 Chest 2 Patient Name: CHYNA RYAN 06/15 - views DX views DX /2016 - [facility] : 1950; Age: 65 years Male MR: [id number] Read by: Azeem Duffy MD Dictated Date/time: [...] follow-up chest imaging to document resolution. SL: [id number] Vital Signs Vital Sign Value Date Comments Source Respitory Rate 20 06/30/2016 [facility] Systolic (mm Hg) 114 06/30/2016 [facility] Diastolic (mm Hg) 75 06/30/2016 [facility] Heart Rate 76 06/30/2016 [facility] Respitory Rate 20 06/30/2016 [facility] Systolic (mm Hg) 105 06/30/2016 [facility] Diastolic (mm Hg) 60 06/30/2016 [facility] Heart Rate 77 06/30/2016 [facility] Systolic (mm Hg) 108 06/30/2016 [facility] Diastolic (mm Hg) 68 06/30/2016 [facility] Heart Rate 70 06/30/2016 [facility] Respitory Rate 18 06/30/2016 [facility] Weight 111.384 06/29/2016 [facility] Weight 110.469 06/28/2016 [facility] Height 177.8 cm 06/25/2016 [facility] Height 177.8 cm 06/25/2016 [facility] Height 177.8 cm 06/24/2016 [facility] Temperature Oral (F) 97.6 F 06/24/2016 [facility] Weight 103.653 06/24/2016 [facility] Temperature Oral (F) 97.9 F 06/20/2016 [facility] BMI Calculated 32.56 06/15/2016 [facility] Encounters Location Location Encounter Encounter Reason Attending ADM DC Status Source Details Type Number For Provider Date Date Visit [facility] Inpatient [id number] Eugenia Benedict 06/15 07/01 [facility] Procedures Procedure Code Date Perfomer Comments Source Repair of knee [id number] 03/27/1973 [facility] collateral ligaments
--- OUTSIDE RECORDS SUMMARY | 2018-06-24 13:25 | XMS REPORT ---
:1950 Author Organization [facility] Address [address] [place] [address] Dr. Quintanilla [address] [place] [id number] Care Team Providers Name Role Phone Unavailable Unavailable Unavailable Problems This patient has no known problems. Allergies, Adverse Reactions, Alerts This patient has no known allergies or adverse reactions. Medications This patient has no known medications.
[2018-06-24 14:26] LABS: Absolute Lymphocytes (CBC) 1.5 K/uL (0.7-4.9); Absolute Monocytes 1.1 K/uL (0.1-1.3); Absolute Neutrophil 5.5 K/uL (1.8-8.0); Basophils % 0.6 % (0-1.3); Eosinophils % 1.7 % (0-4.4); Lymphocytes % 18.5 % (15.3-44.8); Monocytes % 13.2 % (3.3-12.3); RBC Red Blood Cell Count 5.07 M/uL (4.33-5.43)
[2018-06-24 14:43] LABS: Albumin 4.1 g/dL (3.4-5.0); Bilirubin Direct 0.1 mg/dL (0-0.2); Bilirubin Total 0.5 mg/dL (0.2-1.0); Magnesium 1.9 mg/dL (1.8-2.4); Potassium 3.9 mmol/L (3.5-5.1); Protein, Total 8.4 g/dL (6.4-8.2); Troponin (Emerg Dept Use Only) 0.02 ng/mL (0.0-0.045)
[2018-06-24 14:53] LABS: Protime INR 1.07
--- NOTE | 2018-06-24 15:38 | RAD REPORT ---
EXAM DESCRIPTION: RAD - Chest Single View - 06/24/2018 3:03 pm CLINICAL HISTORY: Dyspnea COMPARISON: March 2018 TECHNIQUE: AP portable chest image was obtained 1421 hours . FINDINGS: Lung volumes are low. No focal lung parenchymal process seen. Heart and vasculature are no rmal. No measurable pleural effusion and no pneumothorax. No acute bony abnormality seen. No acute ao rtic findings suspected. IMPRESSION: No acute cardiopulmonary process. No significant change from comparison.
[2018-06-24] MEDS ORDERED: IPRATROPIUM BROM 0.5MG/2.5ML ONE (15:59)
[2018-06-24] MEDS ORDERED: METHYLPREDNISOLONE 125 MG INJ ONE (15:59)
[2018-06-24] MEDS ORDERED: ALBUTEROL 2.5 MG/3 ML NEB SOL ONE (15:59)
[2018-06-24] MEDS ORDERED: FUROSEMIDE 40 MG/4 ML VIAL ONE (16:00)
--- NOTE | 2018-06-24 16:20 | ER ---
Nurse's Notes [facility] Name: Valerio Berg Age: 67 yrs Sex: Male : 1950 Arrival Date: 06/24/2018 Time: 13:21 Bed 3 Private MD: Chapo Veliz C Diagnosis: Chronic obstructive pulmonary disease with (acute) exacerbation Presentation: 06/24 13:33 Presenting complaint: Patient states: Progressive SOB and coughing over the course of la1 the last week. Transition of care: patient was not received from another setting of care. Onset of symptoms was June 24, 2018. Risk Assessment: Do you want to hurt yourself or someone else? Patient reports no desire to harm self or others. Initial Sepsis Screen: Does the patient meet any 2 criteria? No. Patient's initial sepsis screen is negative. Does the patient have a suspected source of infection? No. Patient's initial sepsis screen is negative. Care prior to arrival: None. 13:33 Method Of Arrival: Wheelchair la1 13:33 Acuity: ADRIÁN 3 la1 Historical: - Allergies: 13:32 Betadine; la1 - PMHx: 13:32 COPD; la1 - Immunization history:: Adult Immunizations up to date. - Social history:: Smoking status: Patient/guardian denies using tobacco, the patient reports quitting approximately 12 years ago. - Ebola Screening: : No symptoms or risks identified at this time. Screenin:30 Abuse screen: Denies threats or abuse. Nutritional screening: No deficits noted. aa5 Tuberculosis screening: No symptoms or risk factors identified. Fall Risk IV access (20 points). Total Carlos Fall Scale indicates No Risk (0-24 pts). Assessment: 13:37 Pain: Denies pain. Neuro: Level of Consciousness is awake, alert, obeys commands, la1 Oriented to person, place, time, situation. Cardiovascular: Capillary refill < 3 seconds Patient's skin is warm and dry. Respiratory: Airway is patent Trachea midline Respiratory effort is even, unlabored, Respiratory pattern is regular, symmetrical, Breath sounds are diminished bilaterally. 13:50 General: Appears comfortable, Behavior is calm, cooperative. Pain: Denies pain. Neuro: aa5 Level of Consciousness is awake, alert, obeys commands, Oriented to person, place, time, situation. Cardiovascular: Heart tones S1 S2 present Rhythm is regular. Respiratory: Reports shortness of breath cough that is non-productive, Airway is patent Respiratory effort is even, unlabored, Respiratory pattern is regular, symmetrical, Breath sounds are clear in right upper lobe, left upper lobe, right middle lobe, left lower lobe, right lower lobe, left posterior upper lobe and right posterior upper lobe Breath sounds are diminished in left posterior lower lobe, right posterior middle lobe and right posterior lower lobe. GI: Abdomen is round non-distended, Bowel sounds present X 4 quads. Abd is soft and non tender X 4 quads. : No signs and/or symptoms were reported regarding the genitourinary system. EENT: Nares with clear drainage noted . Derm: Skin is dry, Skin is normal, Skin temperature is warm. Musculoskeletal: Range of motion: intact in all extremities. 14:06 Reassessment: EKG being completed at this time by Maximo Rodrigues [facility]. Sinus aa5 tachycardia at 140 bpm noted on monitor for approximately 15 seconds, pt coughed and HR now 88 bpm, sinus rhythm. STRATIGRAPHER notified . 14:50 Reassessment: Pt sitting up in bed, respirations even an unlabored, skin is aa5 normal/warm/dry. Cardiovascular: Rhythm is sinus rhythm. 15:30 Reassessment: Pt sitting up in bed, states no complaints at this time, respirations aa5 even and unlabored, skin is normal/warm/dry. NSR on monitor. . 16:00 Reassessment: Pt reports SOB has improved, respirations even and unlabored, skin is aa5 normal/warm/dry, A\T\O x 4. . Vital Signs: 13:35 Pulse 87; Resp 20; Temp 97.6(O); Pulse Ox 97% on R/A; Weight 102.06 kg; Height 5 ft. 10 la1 in. (177.80 cm); 13:38 BP 99 / 75; la1 14:11 BP 99 / 75; Pulse 87; Resp 22 S; Pulse Ox 98% on R/A; aa5 14:50 BP 121 / 69; Pulse 75; Resp 20 S; Pulse Ox 98% on 2 lpm NC; aa5 15:30 BP 112 / 72; Pulse 83; Resp 18 S; Pulse Ox 100% on Nebulizer Mask; aa5 16:20 BP 117 / 81; Pulse 69; Resp 18 S; Temp 98.0(O); Pulse Ox 100% on R/A; Pain 0/10; aa5 13:35 Body Mass Index 32.28 (102.06 kg, 177.80 cm) la1 ED Course: 13:21 Patient arrived in ED. mr 13:21 Chapo Veliz MD is Private Physician. mr 13:34 Triage completed. la1 13:34 Arm band placed on left wrist. la1 13:37 Patient has correct armband on for positive identification. Placed in gown. Bed in low aa5 position. Call light in reach. Side rails up X2. media monitor on. Pulse ox on. NIBP on. 13:44 Janiya Beltran FNP-C [facility]. kb 13:44 Asa Cordoba MD is Attending Physician. kb 13:51 Enedelia Boyle, APURVA is Primary Nurse. aa5 14:10 Initial lab(s) drawn, by ny, sent to lab. Inserted saline lock: 22 gauge in left aa5 antecubital area, using aseptic technique. Blood collected. 14:12 Flu and/or RSV swab sent to lab. aa5 15:04 XRAY Chest (1 view) In Process Unspecified. EDMS 16:20 No provider procedures requiring assistance completed. aa5 17:00 IV discontinued, intact, bleeding controlled, No redness/swelling at site. Pressure aa5 dressing applied. Administered Medications: 15:29 Drug: Albuterol 2.5 mg Route: Inhalation; hj 15:29 Drug: AtroVENT Aerosol 0.5 mg Route: Inhalation; hj 15:29 Drug: SOLU-Medrol 125 mg Route: IVP; Site: left antecubital; hj 15:40 Follow up: Response: No adverse reaction aa5 15:29 Drug: Lasix 40 mg Route: IVP; Site: left antecubital; hj 15:40 Follow up: Response: No adverse reaction aa5 Outcome: 16:20 Discharge ordered by . kb 17:03 Patient left the ED. iw 17:03 Discharged to home ambulatory. hj 17:03 Condition: stable 17:03 Discharge instructions given to patient, Instructed on discharge instructions, follow up and referral plans. medication usage, Demonstrated understanding of instructions, follow-up care, medications, Prescriptions given X 3. Signatures: Dispatcher [employer] EDMS Janiya Beltran FNP-C TISSUE COORDINATOR-Ckb Dominga Choudhary mr Santa Hung, RN APURVA iw Enedelia Boyle, RN RN aa5 Shin Hodgson RN RN la1 Ariel Rose, APURVA RN hj Corrections: (The following items were deleted from the chart) 14:32 14:06 Reassessment: EKG being completed at this time by Maximo Rodrigues, [facility]. Sinus aa5 tachycardia at 140 bpm noted on monitor for approximately 15 seconds, pt coughed and HR now 88 bpm, sinus rhythm. . aa5 1454 14:37 Patient has correct armband on for positive identification. Placed in gown. Bed aa5 in low position. Call light in reach. Side rails up X2. aa5 1454 14:37 media monitor on. Pulse ox on. NIBP on. aa5 aa5 17:22 15:30 BP 112 / 72; Pulse 83bpm; Resp 18bpm; Spontaneous; Pulse Ox 98% RA; aa aa
--- NOTE | 2018-06-24 16:20 | EDPHYS ---
Physician Documentation [facility] Name: Valerio Berg Age: 67 yrs Sex: Male : 1950 Arrival Date: 06/24/2018 Time: 13:21 Bed 3 Private MD: Chapo Veilz C ED Physician Asa Cordoba HPI: 06/24 14:16 This 67 yrs old Black Male presents to ER via Wheelchair with complaints of Breathing kb Difficulty. 14:16 The patient has shortness of breath and the patient has a history of COPD. Onset: The kb symptoms/episode began/occurred 2 day(s) ago. Duration: The symptoms are continuous. The patient's shortness of breath is aggravated by exertion. Associated signs and symptoms: Pertinent positives: non-productive cough. Severity of symptoms: At their worst the symptoms were moderate in the emergency department the symptoms are unchanged. The patient has not experienced similar symptoms in the past. The patient has not recently seen a physician. Pt reports he always has shortness of breath, but it has been worse for the past 2 days. Reports he has been coughing a lot as well, but can't get anything up. Historical: - Allergies: 13:32 Betadine; la1 - PMHx: 13:32 COPD; la1 - Immunization history:: Adult Immunizations up to date. - Social history:: Smoking status: Patient/guardian denies using tobacco, the patient reports quitting approximately 12 years ago. - Ebola Screening: : No symptoms or risks identified at this time. ROS: 14:13 Constitutional: Negative for fever, chills, and weight loss, Cardiovascular: Negative kb for chest pain, palpitations, and edema, Abdomen/GI: Negative for abdominal pain, nausea, vomiting, diarrhea, and constipation, Back: Negative for injury and pain, : Negative for injury, bleeding, discharge, and swelling, MS/Extremity: Negative for injury and deformity, Skin: Negative for injury, rash, and discoloration, Neuro: Negative for headache, weakness, numbness, tingling, and seizure. 14:13 Respiratory: Positive for cough, shortness of breath. Exam: 14:13 Constitutional: This is a well developed, well nourished patient who is awake, alert, kb and in no acute distress. Head/Face: Normocephalic, atraumatic. ENT: Nares patent. No nasal discharge, no septal abnormalities noted. Tympanic membranes are normal and external auditory canals are clear. Oropharynx with no redness, swelling, or masses, exudates, or evidence of obstruction, uvula midline. Mucous membranes moist. Neck: Trachea midline, no thyromegaly or masses palpated, and no cervical lymphadenopathy. Supple, full range of motion without nuchal rigidity, or vertebral point tenderness. No Meningismus. Chest/axilla: Normal chest wall appearance and motion. Nontender with no deformity. No lesions are appreciated. Cardiovascular: Regular rate and rhythm with a normal S1 and S2. No gallops, murmurs, or rubs. Normal PMI, no JVD. No pulse deficits. Abdomen/GI: Soft, non-tender, with normal bowel sounds. No distension or tympany. No guarding or rebound. No evidence of tenderness throughout. Skin: Warm, dry with normal turgor. Normal color with no rashes, no lesions, and no evidence of cellulitis. MS/ Extremity: Pulses equal, no cyanosis. Neurovascular intact. Full, normal range of motion. Neuro: Awake and alert, GCS 15, oriented to person, place, time, and situation. Cranial nerves II-XII grossly intact. Motor strength 5/5 in all extremities. Sensory grossly intact. Cerebellar exam normal. Normal gait. 14:13 Respiratory: the patient does not display signs of respiratory distress, Respirations: labored breathing, that is mild, Breath sounds: decreased breath sounds, that are mild, are located in both bases. 14:24 ECG was reviewed by the Attending Physician. kb Vital Signs: 13:35 Pulse 87; Resp 20; Temp 97.6(O); Pulse Ox 97% on R/A; Weight 102.06 kg; Height 5 ft. 10 la1 in. (177.80 cm); 13:38 BP 99 / 75; la1 14:11 BP 99 / 75; Pulse 87; Resp 22 S; Pulse Ox 98% on R/A; aa5 14:50 BP 121 / 69; Pulse 75; Resp 20 S; Pulse Ox 98% on 2 lpm NC; aa5 15:30 BP 112 / 72; Pulse 83; Resp 18 S; Pulse Ox 100% on Nebulizer Mask; aa5 16:20 BP 117 / 81; Pulse 69; Resp 18 S; Temp 98.0(O); Pulse Ox 100% on R/A; Pain 0/10; aa5 13:35 Body Mass Index 32.28 (102.06 kg, 177.80 cm) la1 MDM: 13:46 Patient medically screened. kb 14:16 Data reviewed: vital signs, nurses notes. Data interpreted: Pulse oximetry: on room air kb is 97 %. Interpretation: normal. 16:19 Counseling: I had a detailed discussion with the patient and/or guardian regarding: the kb historical points, exam findings, and any diagnostic results supporting the discharge/admit diagnosis, lab results, radiology results, the need for outpatient follow up, a family practitioner, to return to the emergency department if symptoms worsen or persist or if there are any questions or concerns that arise at home. ED course: Pt reports he is feeling better after treatment. Will discharge home. 06/24 13:56 Order name: Basic Metabolic Panel; Complete Time: 14:49 kb 06/24 13:56 Order name: CBC with Diff; Complete Time: 14:42 kb 06/24 13:56 Order name: LFT's; Complete Time: 14:49 kb 06/24 13:56 Order name: Magnesium; Complete Time: 14:49 kb 06/24 13:56 Order name: NT PRO-BNP; Complete Time: 14:49 kb 06/24 13:56 Order name: PT-INR; Complete Time: 14:55 kb 06/24 13:56 Order name: Troponin (emerg Dept Use Only); Complete Time: 14:49 kb 06/24 13:56 Order name: XRAY Chest (1 view); Complete Time: 15:43 kb 06/24 13:56 Order name: EKG; Complete Time: 13:57 kb 06/24 13:57 Order name: Flu; Complete Time: 14:55 kb 06/24 13:56 Order name: Cardiac monitoring; Complete Time: 14:21 kb 06/24 13:56 Order name: EKG - Nurse/Tech; Complete Time: 14:21 kb 06/24 13:56 Order name: IV Saline Lock; Complete Time: 14:21 kb 06/24 13:56 Order name: Labs collected and sent; Complete Time: 14:21 kb 06/24 13:56 Order name: O2 Per Protocol; Complete Time: 14:21 kb 06/24 13:56 Order name: O2 Sat Monitoring; Complete Time: 14:21 kb EC:24 Rate is 85 beats/min. Rhythm is regular. NE interval is normal at 152 msec. QRS kb interval is normal at 140 msec. QT interval is normal at 380 msec. Interpreted by me. Reviewed by me. Administered Medications: 15:29 Drug: Albuterol 2.5 mg Route: Inhalation; hj 15:29 Drug: AtroVENT Aerosol 0.5 mg Route: Inhalation; hj 15:29 Drug: SOLU-Medrol 125 mg Route: IVP; Site: left antecubital; hj 15:40 Follow up: Response: No adverse reaction aa5 15:29 Drug: Lasix 40 mg Route: IVP; Site: left antecubital; hj 15:40 Follow up: Response: No adverse reaction aa5 Disposition: 18:48 Co-signature as Attending Physician, Asa Cordoba MD. rn Disposition: 06/24/18 16:20 Discharged to Home. Impression: Chronic obstructive pulmonary disease with (acute) exacerbation. - Condition is Stable. - Discharge Instructions: Chronic Obstructive Pulmonary Disease Exacerbation. - Prescriptions for Prednisone 20 mg Oral Tablet - take 1 tablet by ORAL route once daily for 5 days; 5 tablet. Albuterol Sulfate 90 mcg/actuation - inhale 1-2 puff by INHALATION route every 4-6 hours; 1 Inhaler. Albuterol Sulfate 2.5 mg /3 mL (0.083 %) Inhalation Solution for Nebulization - inhale 1 unit by NEBULIZATION route every 8 hours As needed; 1 box. - Medication Reconciliation Form, Thank You Letter, Antibiotic Education, Prescription Opioid Use form. - Follow up: Emergency Department; When: As needed; Reason: Worsening of condition. Follow up: Private Physician; When: 2 - 3 days; Reason: Recheck today's complaints, Continuance of care, Re-evaluation by your physician. Signatures: Dispatcher [employer] Janiya Renae, AZEEM RIVERA-Santa Huffman RN RN iw Nieto, Roman, MD MD rn Attema, Lee, RN RN la1 Ariel Rose RN RN hj Calderon, Audri RN aa5 Corrections: (The following items were deleted from the chart) 17:03 16:20 06/24/2018 16:20 Discharged to Home. Impression: Chronic obstructive pulmonary iw disease with (acute) exacerbation. Condition is Stable. Forms are Medication Reconciliation Form, Thank You Letter, Antibiotic Education, Prescription Opioid Use. Follow up: Emergency Department; When: As needed; Reason: Worsening of condition. Follow up: Private Physician; When: 2 - 3 days; Reason: Recheck today's complaints, Continuance of care, Re-evaluation by your physician. kb
== END 2018-06-24 17:03 | disposition home or self-care (01) ==
LOC: ER 13:17
DX: J44.1 Chronic obstructive pulmonary disease with (acute) exacerbation (principal)
CPT/HCPCS: 93005 ×2; 85025; 80048; 36415; 83735; 85610; 80076; 84484; 83880; 87804 ×2; 71045; 96375; 96374; 99285; J1940; J2930

== ENCOUNTER 2018-07-25 15:41 | Emergency (ER) | payer OTHER ==
--- OUTSIDE RECORDS SUMMARY | 2018-07-25 15:47 | XMS REPORT | Continuity of Care Document ---
:1950 Author Organization Interface Problems Problem Status Onset Classification Date Comments Source Date Reported NSTEMI Active 06/16/19 [facility] 17 ACUTE CHEST Active 06/16/19 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 13 CHEST PAIN, Active [facility] UNSPECIFIED Medications Medication Details Route Status Patient Ordering Order Source Instructions Provider Date lisinopril 2.5 2.5 mg=1 tab, PO, Active mg oral tablet Daily, # 30 tab, 2016 [facility] 0 Refill(s) AMIODarone 200 200 mg=1 tab, PO, Active mg oral tablet BID, please start 2016 [facility] this regimen after 1 week of 400 mg PO BID for 1 week, # 60 tab, 0 Refill(s) Acetaminophen 2 tab, PO, Q6H, Active 300 MG / PRN Pain Score 2016 [facility] Codeine 4-6, X 5 day, # Phosphate 30 MG 40 tab, 0 Oral Tablet Refill(s) [Tylenol with Codeine #3] 200 ACTUAT 2 puff, Active Albuterol 0.09 INHALATION, QID, 2016 [facility] MG/ACTUAT PRN for wheezing, Metered Dose # 25 gm, 0 Inhaler Refill(s) [Proventil] Advair Diskus 1 puff, Active 250 mcg-50 mcg INHALATION, BID, 2016 [facility] inhalation # 60 puff, 0 powder Refill(s) torsemide 10 mg 10 mg=1 tab, PO, Active oral tablet Daily, # 30 tab, 2016 [facility] 0 Refill(s) metoprolol 25 25 mg=1 tab, PO, Active mg oral tablet, Daily, # 30 tab, 2016 [facility] extended 0 Refill(s) release clopidogrel 75 75 mg=1 tab, PO, Active mg oral tablet Daily, # 30 tab, 2016 [facility] 0 Refill(s) atorvastatin 40 40 mg=1 tab, PO, Active mg oral tablet Bedtime, # 30 2016 [facility] tab, 0 Refill(s) aspirin 81 mg 81 mg=1 tab, PO, Active tablet, enteric Daily, # 100 tab, 2016 [facility] coated 0 Refill(s) 12 HR 600 mg=1 tab, PO, Active Guaifenesin 600 Q12H, PRN 2017 [facility] Extended Congestion, X 7 Release Tablet day, # 14 tab, 0 [Mucinex] Refill(s) Amiodarone 400 mg, 2 tab, Inactive Route: PO, Drug 2016 [facility] form: TAB, BID, Dosing Weight 111.384, kg, Priority: NOW, Start date: 06/30/16 7:15:00 CDT, Stop date: 07/14/16 17:00:00 CDTNotes: (Same as: Cordarone) torsemide 10 mg, 1 tab, No Longer Route: PO, Drug Active 2016 [facility] form: TAB, Daily, Dosing Weight 111.384, kg, Start date: 06/29/16 9:00:00 CDT, Duration: 30 day, Stop date: 07/28/16 9:00:00 CDTNotes: (Same As: Demadex) Amiodarone 200 mg, 1 tab, No Longer Route: PO, Drug Active 2016 [facility] form: TAB, TID, Dosing Weight 110.469, kg, Priority: NOW, Start date: 06/28/16 9:06:00 CDT, Duration: 30 day, Stop date: 07/28/16 9:00:00 CDTNotes: (Same as: Cordarone) metoprolol 25 mg, 1 tab, No Longer extended Route: PO, Drug Active 2016 [facility] release form: ERTAB, Daily, Start date: 06/28/16 9:00:00 CDT, Duration: 30 day, Stop date: 07/27/16 9:00:00 CDTNotes: (Same as: Toprol XL) Do Not Crush atorvastatin 40 mg, 1 tab, No Longer Route: PO, Drug Active 2016 [facility] form: TAB, Bedtime, Dosing Weight 103.653, kg, Start date: 06/27/16 21:00:00 CDT, Duration: 30 day, Stop date: 07/26/16 21:00:00 CDTNotes: (Same as: Lipitor) chlorhexidine 1 pkt, Route: No Longer gluconate 40 BATHE, Q-M-W-F, Active 2016 [facility] MG/ML Medicated Drug form: SOLN, Liquid Soap Start date: 06/27/16 9:00:00 CDT, Duration: 30 day, Stop date: 07/25/16 9:00:00 CDTNotes: (Same As: Danieliclewesley) Glucagon 1 mg, Route: IM, No Longer Drug form: Active 2016 [facility] PDR/INJ, PRN, Dosing Weight 103.653, kg, PRN Blood Glucose Results, Start date: 06/26/16 10:21:00 CDT, Duration: 30 day, Stop date: 07/26/16 10:20:00 CDT Dextrose 50% 25 gm, 50 mL, No Longer Syringe Route: IVP, Drug Active 2016 [facility] Form: INJ, Dosing Weight 103.653, kg, PRN, PRN Blood Glucose Results, Start date: 06/26/16 10:21:00 CDT, Duration: 30 day, Stop date: 07/26/16 10:20:00 CDT Insulin, 8 unit, 0.08 mL, No Longer Aspart, Human Route: SUB-Q, Active 2016 [facility] Drug form: SOLN, TID-Before Meals, Dosing Weight [...] Route: IVP, Drug 2016 [facility] form: INJ, ONCE, Dosing Weight 103.653, kg, Priority: NOW, Start date: 06/26/16 7:30:00 CDT, Stop date: 06/26/16 7:30:00 CDTNotes: (Same as: Lasix) albumin human 12.5 gm, 250 mL, Inactive 5% intravenous 250 ml/hr, Route: 2016 [facility] solution IV, Drug Form: INJ, Dosing Weight 103.653, kg, ONCE, Start date: 06/26/16 7:30:00 CDT, Stop date: 06/26/16 7:30:00 CDTNotes: LOT#: Mfg: ___ WASTE: F/P - Red; E -Red (Same as: Albuminar) "blood product derivative" glucagon 1 mg, Route: INJ, No Longer Drug form: Active 2016 [facility] PDR/INJ, PRN, PRN Blood Glucose Results, Start date: 06/25/16 22:17:00 CDT, Duration: 30 day, Stop date: 07/25/16 22:16:00 CDT Dextrose 50% in 50 mL, Route: No Longer Water IV IVP, Start date: Active 2016 [facility] 06/25/16 22:17:00 CDT, Duration: 30 day, Stop date: 07/25/16 22:16:00 CDT, PRN Blood Glucose Results insulin aspart 10 unit, 0.1 mL, No Longer Route: SUB-Q, Active 2016 [facility] Drug form: SOLN, Sliding Scale, PRN Blood [...] PO, Drug Active 2016 [facility] form: TAB, Bedtime, Dosing Weight 103.653, kg, Start date: 06/25/16 21:00:00 CDT, Duration: 30 day, Stop date: 07/24/16 21:00:00 CDTNotes: (Same As: Lipitor) Lovenox 40 mg, 0.4 mL, No Longer Route: SUB-Q, Active 2016 [facility] Drug form: INJ, [id number], Dosing Weight 103.653, kg, Start date: 06/25/16 20:00:00 CDT, Duration: 30 day, Stop date: 07/24/16 20:00:00 CDTNotes: (Same as: Lovenox) Dilaudid 0.5 mg, 0.5 mL, Inactive Route: IVP, Drug 2016 [facility] form: INJ, ONCE, Dosing Weight 103.653, kg, Priority: STAT, Start date: 06/25/16 18:54:00 CDT, Stop date: 06/25/16 18:54:00 CDT pantoprazole 40 mg, 1 tab, Inactive Route: PO, Drug 2016 [facility] form: ECTAB, Daily, Dosing Weight 103.653, kg, Start date: 06/25/16 9:00:00 CDT, Duration: 30 day, Stop date: 07/24/16 9:00:00 CDTNotes: Tablet should not be chewed or crushed. (Same as: Protonix) Mupirocin 0.02 1 appl, Route: No Longer MG/MG Topical NASAL, BID, Drug Active 2016 [facility] Ointment form: OINT, Start date: 06/25/16 9:00:00 CDT, Duration: 5 day, Stop date: 06/29/16 17:00:00 CDT clopidogrel 75 mg, 1 tab, No Longer Route: PO, Drug Active 2016 [facility] form: TAB, Daily, Dosing Weight 102.926, kg, Start date: 06/25/16 9:00:00 CDT, Duration: 30 day, Stop date: 07/24/16 9:00:00 CDTNotes: (Same As: Plavix) Aspirin 325 MG 325 mg, Route: No Longer Enteric Coated PO, Drug form: Active 2016 [facility] Tablet ECTAB, Daily, Dosing Weight 102.926, kg, Start date: 06/25/16 9:00:00 CDT, Duration: 30 day, Stop date: 07/24/16 9:00:00 CDT heparin 5,000 unit, 1 mL, Inactive Route: SUB-Q, 2016 [facility] Drug form: INJ, Q8H, Dosing Weight 103.653, kg, Start date: 06/25/16 8:00:00 CDT, Duration: 30 day, Stop date: 07/25/16 0:00:00 CDTNotes: porcine heparin vancomycin 1.5 gm, 250 mL, Inactive Route: IVPB, Drug 2016 [facility] form: INJ, [id number], Start date: 06/25/16 1:30:00 CDT, Duration: 2 doses or times, Stop date: 06/25/16 13:30:00 CDTNotes: TIME CRITICAL MEDICATION Same as: Vancocin-NS (premixed) Infusion rate 2001 mg: infuse over 2.5 hours cefuroxime + 1.5 gm, Route: Inactive sodium chloride IVPB, ABXQ8H, 2016 [facility] 0.9% INJ 100 mL Dosing Weight 103.653, kg, Start date: 06/25/16 1:00:00 CDT, Duration: 3 doses or times, Stop date: 06/25/16 17:00:00 CDTNotes: (Same As: Kefurox, Zinacef) MEDICATION WASTE Product Size: 1500 mg Product Wasted: ___ mg Vancomycin 1,554.795 mg, Inactive Route: IVPB, Drug 2016 [facility] form: INJ, Q12H, Dosing Weight 103.653, kg, Time Critical Medication, Start date: 06/24/16 21:00:00 CDT, Duration: 2 doses or times, Stop date: 06/25/16 9:00:00 CDT chlorhexidine 15 ml, Route: No Longer gluconate 1.2 S&SPIT, Q12H, Active 2016 [facility] MG/ML Mouthwash Drug form: LIQ, Start date: 06/24/16 21:00:00 CDT, Duration: 2 week, Stop date: 07/08/16 9:00:00 CDTNotes: (Same As: Peridex) Aspirin 325 MG 325 mg, 1 tab, No Longer Oral Tablet Route: NG, Drug Active 2016 [facility] form: TAB, Daily, Dosing Weight 102.926, kg, Start date: 06/24/16 21:00:00 CDT, Duration: 30 day, Stop date: 07/24/16 9:00:00 CDTNotes: Take with food. EPINEPHrine 4 246 mL, Rate: No Longer mg + sodium Titrate, Route: Active 2016 [facility] chloride 0.9% IV, Dosing Weight INJ 246 mL 103.653 kg, Total Volume: 250, Start date: 06/24/16 18:38:00 CDT, Duration: 30 day, Stop date: 07/24/16 18:37:00 CDTNotes: (Same as: Adrenalin) Suremed - Injectable drug used as inhalation treatment. MEDICATION WASTE Product Size: 1 mg Product Wasted: ___ mg insulin aspart 14 unit, 0.14 mL, No Longer Route: SUB-Q, Active 2016 [facility] Drug form: SOLN, Sliding Scale, PRN Abnormal [...] Route: SUB-Q, Active 2016 [facility] Drug form: SOLN, Sliding Scale, PRN Abnormal [...] Rate: Titrate, Active 2016 [facility] 100 unit Dosing Weight 103.653, kg, Route: IV, Total Volume: 100, Start Date: 06/24/16 18:35:00 CDT, Duration: 30 day, Stop date: 07/24/16 18:34:00 CDT, Replace Every: 24 hrNotes: Final Concentration 1unit/1ml WASTE: F/P - Black; E - Municipal Trash Bin insulin reg 100 100 unit, 100 mL, Inactive unit-NS 100mL Rate: Titrate, 2016 [facility] 100 unit Dosing Weight 103.653, kg, Route: IV, Total Volume: 100, Start Date: 06/24/16 18:34:00 CDT, Duration: 30 day, Stop date: 07/24/16 18:33:00 CDT, Replace Every: 24 hrNotes: Final Concentration 1unit/1ml WASTE: F/P - Black; E - Municipal Trash Bin albuterol 2.49 mg, 3 mL, No Longer Route: NEB, Drug Active 2016 [facility] form: SOLN, PRN, PRN Respiratory Protocol, Start date: 06/24/16 18:16:00 CDT, Stop date: 07/24/16 18:15:00 CDTNotes: SEE RT DOCUMENTATION (Same as: Proventil) Fentanyl 600 microgram, 30 No Longer mL, Route: IV, Active 2016 [facility] [employer] Dose: 10 mcg, [employer] Lockout: 10 minutes, Continuous Basal Rate: 0 mg, 4 Hour Limit (In MCG): 240, Drug Form: INJ, Continuous, Start date: 06/24/16 18:00:00 CDT, Duration: 30 day, Stop date: 07/24/16 17:59:00 CDTNotes: Concentration is 20 micrograms/ml metoprolol 12.5 mg, 0.5 tab, No Longer tartrate Route: PO, Drug Active 2016 [facility] form: TAB, Q6H, Dosing Weight 102.926, kg, Start date: 06/24/16 18:00:00 CDT, Duration: 30 day, Stop date: 07/24/16 12:00:00 CDTNotes: (Same as: Lopressor) Cefuroxime 1.5 gm, Route: Inactive IVPB, ABXQ8H, 2016 [facility] Dosing Weight 103.653, kg, Start date: 06/24/16 18:00:00 CDT, Duration: 3 doses or times, Stop date: 06/25/16 10:00:00 CDTNotes: (Same As: Kefurox, Zinacef) MEDICATION WASTE Product Size: 1500 mg Product Wasted: ___ mg PHOS-NaK 2 pkt, Route: PO, No Longer Drug Form: Active 2016 [facility] PDR/REC, Dosing Weight 103.653, kg, PRN, PRN Abnormal Lab Result, FOR ICU USE ONLY, Start date: 06/24/16 17:44:00 CDT, Duration: 30 day, Stop date: 07/24/16 17:43:00 CDTNotes: (Same as: Phos-NaK) Each 1.5 gm pkt has 250mg phosphorous. Mix w/2.5oz water and stir. potassium 45 mmol, 15 mL, No Longer phosphate + Route: IVPB, PRN, Active 2016 [facility] sodium chloride Dosing Weight 0.9% INJ 250 mL 103.653, kg, PRN Abnormal Lab Result, Start date: 06/24/16 17:44:00 CDT, Duration: 30 day, Stop date: 07/24/16 17:43:00 CDT, FOR ICU USE ONLYNotes: (Same as: K Phosphate.) 1 mMol phoshate has 1.47 mEq potassium Infuse over 4 hours Calcium 1 gm, 50 mL, No Longer Gluconate Route: IVPB, Drug Active 2016 [facility] form: INJ, PRN, Dosing Weight 103.653, kg, PRN Abnormal Lab Result, Start date: 06/24/16 17:44:00 CDT, Duration: 30 day, Stop date: 07/24/16 17:43:00 CDT, FOR ICU USE ONLYNotes: WASTE: F/P - Sink; E - Municipal Trash Bin Magnesium Oxide 800 mg, 2 tab, No Longer Route: PO, Drug Active 2016 [facility] form: TAB, PRN, Dosing Weight 103.653, kg, PRN Abnormal Lab Result, FOR ICU USE ONLY, Start date: 06/24/16 17:44:00 CDT, Duration: 30 day, Stop date: 07/24/16 17:43:00 CDTNotes: (Same as: Mag-Ox 400) Magnesium oxide [id number] elemental magnesium Dose=____mg magnesium oxide (___mg elemental magnesium) Magnesium 2 gm, 50 mL, No Longer Sulfate Route: IVPB, Drug Active 2016 [facility] form: INJ, PRN, Dosing Weight 103.653, kg, PRN Abnormal Lab Result, Start date: 06/24/16 17:44:00 CDT, Duration: 30 day, Stop date: 07/24/16 17:43:00 CDT, FOR ICU USE ONLYNotes: WASTE: F/P - Sink; E - Municipal Trash Bin potassium 20 mEq, 15 mL, No Longer chloride Route: NJ, Drug Active 2016 [facility] form: LIQ, PRN, Dosing Weight 103.653, kg, PRN Abnormal Lab Result, Start date: 06/24/16 17:44:00 CDT, Duration: 30 day, Stop date: 07/24/16 17:43:00 CDT, FOR ICU USE ONLYNotes: (Same as: Potassium Chloride) Calcium 1,000 mg, 2 tab, No Longer Carbonate 500 Route: CHEW, Drug Active 2016 [facility] Chewable form: CHEWTAB, Tablet PRN, Dosing Weight 103.653, kg, PRN Abnormal Lab Result, FOR ICU USE ONLY, Start date: 06/24/16 17:44:00 CDT, Duration: 30 day, Stop date: 07/24/16 17:43:00 CDTNotes: (Same As: Tums) Calcium Carbonate 500 ld=655 mg elemental calcium Dose= mg calcium carbonate ( mg elemental calcium) Insulin, 3 unit, 0.03 mL, Inactive Aspart, Human Route: SUB-Q, 2016 [facility] Drug form: SOLN, TID-Before Meals, Dosing Weight [...] IVPB, PRN, Active 2016 [facility] sodium chloride Dosing Weight 0.9% INJ 250 mL 103.653, kg, PRN Abnormal Lab Result, Start date: 06/24/16 17:44:00 CDT, Duration: 30 day, Stop date: 07/24/16 17:43:00 CDT, FOR ICU USE ONLY potassium 15 mmol, 250 mL, No Longer phosphate Route: IVPB, Drug Active 2016 [facility] form: INJ, PRN, Dosing Weight 103.653, kg, PRN Abnormal Lab Result, Start date: 06/24/16 17:44:00 CDT, Duration: 30 day, Stop date: 07/24/16 17:43:00 CDT, FOR ICU USE ONLYNotes: (Same as: K Phosphate) sodium 15 mmol, 250 mL, No Longer phosphate Route: IVPB, Drug Active 2016 [facility] form: INJ, PRN, Dosing Weight 103.653, kg, PRN Abnormal Lab Result, Start date: 06/24/16 17:44:00 CDT, Duration: 30 day, Stop date: 07/24/16 17:43:00 CDT, FOR ICU USE ONLY Naloxone 0.04 mg, 0.1 mL, No Longer Route: IVP, Drug Active 2016 [facility] form: INJ, Q2MIN, Dosing Weight 103.653, kg, PRN Narcotic Reversal, Start date: 06/24/16 17:44:00 CDT, Duration: 30 day, Stop date: 07/24/16 17:43:00 CDTNotes: Same as Narcan Saline Flush 10 ml, Route: No Longer 0.9% IVP, Drug Form: Active 2016 [facility] INJ, Dosing Weight 103.653, kg, PRN, PRN Line Flush, Start date: 06/24/16 17:44:00 CDT, Duration: 30 day, Stop date: 07/24/16 17:43:00 CDTNotes: (Same as: BD Posiflush) Dulcolax 10 mg, 1 supp, No Longer Laxative Route: RI, Drug Active 2016 [facility] form: SUPP, Daily, Dosing Weight 102.926, kg, PRN Constipation, Start date: 06/24/16 17:44:00 CDT, Duration: 30 day, Stop date: 07/24/16 17:43:00 CDTNotes: (Same As: Dulcolax, Bisco-Lax) Lactulose 667 20 gm, 30 mL, No Longer MG/ML Oral Route: PO, Drug Active 2016 [facility] Solution form: SYRP, Daily, Dosing Weight 102.926, kg, PRN as needed for constipation, Start date: 06/24/16 17:44:00 CDT, Duration: 30 day, Stop date: 07/24/16 17:43:00 CDTNotes: (Same as:Chronulac) albumin human 12.5 gm, 250 mL, No Longer 5% intravenous 500 ml/hr, Route: Active 2016 [facility] solution IVPB, Drug Form: INJ, Dosing Weight 102.926, kg, ONCE, PRN Hypotension, Start date: 06/24/16 17:44:00 CDTNotes: LOT#: Mfg: ___ WASTE: F/P - Red; E -Red (Same as: Albuminar) "blood product derivative" Acetaminophen 1 tab, Route: PO, No Longer 300 MG / Drug Form: TAB, Active 2016 [facility] Codeine Dosing Weight Phosphate 30 MG 102.926, kg, Q6H, Oral Tablet PRN Pain Score [Tylenol with 1-3, Start date: Codeine #3] 06/24/16 17:44:00 CDT, Duration: 30 day, Stop date: 07/24/16 17:43:00 CDTNotes: Do not exceed 4gm/day of acetaminophen. (Same as: Tylenol with Codeine # 3) Zofran 4 mg, 2 mL, No Longer Route: IVP, Drug Active 2016 [facility] form: INJ, Q8H, Dosing Weight 102.926, kg, PRN Nausea, Start date: 06/24/16 17:44:00 CDT, Duration: 30 day, Stop date: 07/24/16 17:43:00 CDTNotes: (Same as: Zofran) MEDICATION WASTE Product Size: 4 mg Product Wasted: ___ mg Xopenex 1.25 mg, Route: Inactive NEB, PRN, Dosing 2016 [facility] Weight 102.926, kg, PRN Respiratory Protocol, Start date: 06/24/16 17:44:00 CDT, Duration: 30 day, Stop date: 07/24/16 17:43:00 CDT Morphine 8 mg, 2 mL, No Longer Route: IM, Drug Active 2016 [facility] form: INJ, Q3H, Dosing Weight 102.926, kg, PRN Pain Score 7-10, Start date: 06/24/16 17:44:00 CDT, Duration: 30 day, Stop date: 07/24/16 17:43:00 CDTNotes: (Same as:MORPhine Sulfate) Albuterol 0.833 3 ml, Route: NEB, No Longer MG/ML / Drug Form: SOLN, Active 2016 [facility] Ipratropium Dosing Weight [place] 0.167 103.653, kg, PRN, MG/ML Inhalant PRN Respiratory Solution Protocol, Start date: 06/24/16 17:44:00 CDT, Duration: 30 day, Stop date: 07/24/16 17:43:00 CDTNotes: (Same as: Duoneb) Glucagon 1 mg, Route: IM, No Longer Drug form: Active 2016 [facility] PDR/INJ, PRN, Dosing Weight 103.653, kg, PRN Blood Glucose Results, Start date: 06/24/16 17:44:00 CDT, Duration: 30 day, Stop date: 07/24/16 17:43:00 CDT Nitroglycerin 0.4 mg, 1 tab, No Longer Route: SL, Drug Active 2016 [facility] form: TAB, Q5Min, Dosing Weight 103.653, kg, PRN Chest Pain, Start date: 06/24/16 17:44:00 CDT, Duration: 3 doses or times, Stop date: Limited # of timesNotes: (Same as:Nitroquick, Nitrostat) "Do Not Crush" Sublingual tablet Docusate 100 mg, 1 cap, No Longer Route: PO, Drug Active 2016 [facility] form: CAP, BID, Dosing Weight 103.653, kg, PRN Constipation, Start date: 06/24/16 17:44:00 CDT, Duration: 30 day, Stop date: 07/24/16 17:43:00 CDTNotes: (Same as: Colace) (Do Not Crush) Ondansetron 4 mg, 2 mL, Inactive Route: IVP, Drug 2016 [facility] form: INJ, Q8H, Dosing Weight 103.653, kg, PRN Nausea & Vomiting, Start date: 06/24/16 17:44:00 CDT, Duration: 30 day, Stop date: 07/24/16 17:43:00 CDTNotes: (Same as: Zofran) MEDICATION WASTE Product Size: 4 mg Product Wasted: ___ mg Dextrose 50% 25 gm, 50 mL, No Longer Syringe Route: IVP, Drug Active 2016 [facility] Form: INJ, Dosing Weight 103.653, kg, PRN, PRN Blood Glucose Results, Start date: 06/24/16 17:44:00 CDT, Duration: 30 day, Stop date: 07/24/16 17:43:00 CDT Acetaminophen 650 mg, 2 tab, No Longer Route: PO, Drug Active 2016 [facility] form: TAB, Q4H, Dosing Weight 103.653, kg, PRN Pain 1-3/Temp > 100.4 F, Start date: 06/24/16 17:44:00 CDT, Duration: 30 day, Stop date: 07/24/16 17:43:00 CDTNotes: Do not exceed 4 gm/day. (Same as: Tylenol) vasopressin Route: IV, Drug Inactive 06/24/ MH (ANES) form: INJ, ONCE, 2016 [facility] Stop date: 06/24/16 17:40:00 CDT ondansetron Route: IV, Drug Inactive 06/24/ MH (ANES) form: INJ, ONCE, 2016 Stop date: 06/24/16 17:23:00 CDT protamine Route: IV, Drug Inactive 06/24/ MH (ANES) form: INJ, ONCE, 2016 [facility] Stop date: 06/24/16 17:03:00 CDT calcium Route: IV, Drug Inactive MH chloride (ANES) form: INJ, ONCE, 2016 [facility] Stop date: 06/24/16 16:48:00 CDT nitroglycerin Route: IV, Drug Inactive MH (ANES) form: INJ, ONCE, 2016 Stop date: 06/24/16 15:17:00 CDT heparin (ANES) Route: IV, Drug Inactive form: INJ, ONCE, 2016 [facility] Stop date: 06/24/16 15:07:00 CDT fentaNYL (ANES) Route: IV, Drug Inactive MH form: INJ, ONCE, 2016 [facility] Stop date: 06/24/16 14:31:00 CDT ePHEDrine Route: [...] form: INJ, ONCE, 2016 [facility] Stop date: 06/24/16 14:06:00 CDT Amicar (ANES) Route: IV, Drug Inactive MH (ANES) + form: INJ, Dosing 2016 [facility] Weight 103.7, kg, Start date: 06/24/16 13:35:00 CDT, Stop date: 06/24/16 14:35:00 CDT vancomycin Route: IV, Drug Inactive 06/24/ MH (ANES) (ANES) form: INJ, Start 2016 [facility] date: 06/24/16 13:29:00 CDT, Stop date: 06/24/16 14:29:00 CDT midazolam Route: IV, Drug Inactive MH (ANES) form: SOLN, ONCE, 2016 [facility] Stop date: 06/24/16 13:11:00 CDT morphine Route: IV, Drug Inactive MH Sulfate (ANES) form: INJ, ONCE, 2016 [facility] Stop date: 06/24/16 13:11:00 CDT Isolyte S (PH Route: IV, Total Inactive MH 7.4) 1000 mL Volume: 1,000, 2016 [facility] (ANES) Start date: 06/24/16 12:39:00 CDT, Stop date: 06/24/16 13:39:00 CDT sodium chloride 1,000 mL, Rate: No Longer MH 0.9% 1000 ml 125 ml/hr, Infuse Active 2016 [facility] INJ 1,000 mL over: 8 hr, Route: IV, Dosing Weight 99.563 kg, Total Volume: 1,000, Start date: 06/22/16 7:35:00 CDT, Duration: 30 day, Stop date: 07/22/16 7:34:00 CDT Sodium Chloride 250 mL, 250 Inactive MH 0.154 MEQ/ML ml/hr, Infuse 2017 [facility] Injectable Over: 1 hr, Solution Route: IV, 250, Drug form: INJ, ONCE, Priority: STAT, Dosing Weight 99.563 kg, Start date: 06/22/16 7:34:00 CDT, Duration: 1 doses or times, Stop date: 06/22/16 7:34:00 CDT sodium chloride 1,000 mL, Rate: Inactive 06/22/ MH 0.9% 1000 ml 125 ml/hr, Infuse 2017 [facility] INJ 1,000 mL over: 8 hr, Route: IV, Dosing Weight 99.563 kg, Total Volume: 1,000, Start date: 06/22/16 7:19:00 CDT, Duration: 30 day, Stop date: 07/22/16 7:18:00 CDT Lopressor 50 mg, 1 tab, No Longer Route: PO, Drug Active 2016 [facility] form: TAB, BID, Dosing Weight 102.926, kg, Start date: 06/19/16 18:00:00 CDT, Duration: 30 day, Stop date: 07/19/16 17:00:00 CDTNotes: (Same as: Lopressor) Lopressor 50 mg, 1 tab, Inactive Route: PO, Drug 2016 [facility] form: TAB, Q8Hnow, Dosing Weight 102.926, kg, Start date: 06/19/16 17:00:00 CDT, Duration: 30 day, Stop date: 07/19/16 9:00:00 CDTNotes: (Same as: Lopressor) Levemir 10 unit, 0.1 mL, No Longer Route: SUB-Q, Active 2016 [facility] Drug form: INJ, Bedtime, Dosing Weight 102.926, kg, Start date: 06/17/16 21:00:00 CDT, Duration: 30 day, Stop date: 07/16/16 21:00:00 CDTNotes: Same as Levemir Do not hold insulin without contacting prescriber WASTE: F/P - Black; E - Municipal Trash Bin "single patient use only" Saline Flush 10 ml, Route: No Longer 0.9% IVP, Drug Form: Active 2016 [facility] INJ, Dosing Weight 102.926, kg, Q12H, Start date: 06/17/16 21:00:00 CDT, Duration: 30 day, Stop date: 07/17/16 9:00:00 CDTNotes: (Same as: BD Posiflush) chlorhexidine 15 ml, Route: No Longer gluconate 1.2 S&SPIT, BID, Drug Active 2016 [facility] MG/ML Mouthwash form: LIQ, Start date: 06/17/16 20:00:00 CDT, Duration: 30 day, Stop date: 07/17/16 17:00:00 CDTNotes: (Same As: Peridex) Cefazolin 2 gm, 100 mL, No Longer Route: IVPB, Drug Active 2016 [facility] form: INJ, ONCALL, Dosing Weight 102.926, kg, Start date: 06/17/16 19:00:00 CDT, Duration: 30 day, Stop date: 07/17/16 18:59:00 CDTNotes: Same as: Ancef Mupirocin 0.02 1 appl, Route: No Longer MG/MG Topical NASAL, ONCALL, Active 2016 [facility] Ointment Drug form: OINT, Start date: 06/17/16 19:00:00 CDT, Duration: 30 day, Stop date: 07/17/16 18:59:00 CDT sodium chloride 250 mL, Rate: On No Longer 0.9% INJ 250 mL call for use with Active 2016 [facility] blood product administration, Dosing Weight 102.926, kg, Route: IV, Total Volume: 250, Start Date: 06/17/16 18:54:00 CDT, Duration: 30 day, Stop date: 07/17/16 18:53:00 CDT, Replace Every: 24 hr Saline Flush 10 ml, Route: No Longer 0.9% IVP, Drug Form: Active 2016 [facility] INJ, Dosing Weight 102.926, kg, PRN, PRN Line Flush, Start date: 06/17/16 18:54:00 CDT, Duration: 30 day, Stop date: 07/17/16 18:53:00 CDTNotes: (Same as: BD Posiflush) metoprolol 12.5 mg, Route: Inactive tartrate PO, Drug form: 2016 [facility] TAB, Q12H, Dosing Weight 102.926, kg, Priority: NOW, Start date: 06/17/16 18:54:00 CDT, Duration: 30 day, Stop date: 07/17/16 9:00:00 CDT Nitroglycerin 1 inch, Route: No Longer 0.02 MG/MG TOP, Drug Form: Active 2016 [facility] Topical OINT, Dosing Ointment Weight 102.926, kg, Q6H, Start date: 06/17/16 12:00:00 CDT, Duration: 30 day, Stop date: 07/17/16 6:00:00 CDTNotes: 1 gram is approximately 1 inch of nitroglycerin ointment (20 mg NTG per gram) (Same as:Nitro-Bid) Enoxaparin 100 mg, 1 mL, No Longer Route: SUB-Q, Active 2016 [facility] Drug form: INJ, [id number], Dosing Weight 102.926, kg, Start date: 06/17/16 9:00:00 CDT, Duration: 30 day, Stop date: 07/16/16 21:00:00 CDTNotes: Nurse to ensure documentation of patient education per anticoagulation policy. (Same as: Lovenox) Albuterol 0.833 3 mL, Route: NEB, No Longer MG/ML / Drug Form: SOLN, Active 2016 [facility] Ipratropium Dosing Weight [place] 0.167 102.926, kg, MG/ML Inhalant RQ6H, Start date: Solution 06/16/16 20:00:00 [DuoNeb] CDT, Duration: 30 day, Stop date: 07/16/16 14:00:00 CDTNotes: (Same as: Duoneb) Budesonide 0.25 0.5 mg, 2 mL, No Longer MG/ML Inhalant Route: NEB, Drug Active 2016 [facility] Solution form: SUSP, [Pulmicort] RQ12H, Dosing Weight 102.926, kg, Start date: 06/16/16 18:32:00 CDT, Duration: 30 day, Stop date: 07/16/16 16:00:00 CDTNotes: (Same As: Pulmicort) Solu-Medrol 80 mg, 1.28 mL, Inactive Route: IVP, Drug 2016 [facility] form: INJ, ONCE, Dosing Weight 102.926, kg, Start date: 06/16/16 18:12:00 CDT, Stop date: 06/16/16 18:12:00 CDTNotes: (Same as:Solu-MEDROL, A-Methapred) Lovenox 100 mg, 1 mL, Inactive Route: SUB-Q, 2016 [facility] Drug form: INJ, ONCE, Dosing Weight 102.926, kg, Start date: 06/16/16 18:00:00 CDT, Stop date: 06/16/16 18:00:00 CDTNotes: Nurse to ensure documentation of patient education per anticoagulation policy. (Same as: Lovenox) Sodium Chloride 250 mL, 250 No Longer 0.154 MEQ/ML ml/hr, Infuse Active 2016 [facility] Injectable Over: 1 hr, Solution Route: IV, 250, Drug form: INJ, ONCALL, Priority: Routine, Dosing Weight 102.926 kg, Start date: 06/16/16 17:00:00 CDT, Duration: 1 doses or times Sodium Chloride 750 mL, Rate: 75 Inactive 0.154 MEQ/ML ml/hr, Infuse 2016 [facility] Injectable over: 10 hr, Solution Route: IV, Dosing Weight 102.926 kg, Total Volume: 750, Start date: 06/16/16 16:15:00 CDT, Stop date: 06/17/16 16:14:00 CDT acetaminophen-c 1 tab, Route: PO, No Longer odeine #3 Drug Form: TAB, Active 2016 [facility] Dosing Weight 102.926, kg, Q4H, PRN Pain Score 4-6, Start date: 06/16/16 16:11:00 CDT, Duration: 30 day, Stop date: 07/16/16 16:10:00 CDTNotes: Do not exceed 4gm/day of acetaminophen. (Same as: Tylenol with Codeine # 3) Acetaminophen 650 mg, 2 tab, No Longer Route: PO, Drug Active 2016 [facility] form: TAB, Q4H, Dosing Weight 102.926, kg, [...] Start date: Active 2016 [facility] 06/16/16 15:49:00 CDT, Duration: 30 day, Stop date: 07/16/16 15:48:00 CDT, PRN Line Flush Dextrose 50% 25 gm, 50 mL, No Longer Syringe Route: IVP, Drug Active 2016 [facility] Form: INJ, Dosing Weight 102.926, kg, PRN, PRN Blood Glucose Results, Start date: 06/16/16 15:45:00 CDT, Duration: 30 day, Stop date: 07/16/16 15:44:00 CDT Insulin, 5 unit, 0.05 mL, No Longer Aspart, Human Route: SUB-Q, Active 2016 [facility] Drug form: SOLN, TID-Before Meals, Dosing Weight [...] Drug form: Active 2016 [facility] PDR/INJ, PRN, Dosing Weight 102.926, kg, PRN Blood Glucose Results, Start date: 06/16/16 15:45:00 CDT, Duration: 30 day, Stop date: 07/16/16 15:44:00 CDT Sodium Chloride 1,000 mL, Rate: Inactive 0.154 MEQ/ML 100 ml/hr, Infuse 2016 [facility] Injectable over: 10 hr, Solution Route: IV, Dosing Weight 102.926 kg, Total Volume: 1,000, Start date: 06/16/16 9:19:00 CDT, Duration: 30 day, Stop date: 07/16/16 9:18:00 CDT aspirin 81 mg 81 mg, 1 tab, No Longer tablet, enteric Route: PO, Drug Active 2016 [facility] coated form: ECTAB, Daily, Dosing Weight 102.926, kg, Start date: 06/16/16 9:00:00 CDT, Duration: 30 day, Stop date: 07/15/16 9:00:00 CDTNotes: Do not crush or chew. (Same As: Ecotrin) Nitroglycerin 0.5 inch, Route: Inactive 0.02 MG/MG TOP, Drug Form: 2016 [facility] Topical OINT, Dosing Ointment Weight 102.926, kg, TID, Start date: 06/16/16 6:00:00 CDT, Duration: 30 day, Stop date: 07/15/16 18:00:00 CDTNotes: 1 gram is approximately 1 inch of nitroglycerin ointment (20 mg NTG per gram) (Same as:Nitro-Bid) metoprolol 50 mg, 1 tab, No Longer tartrate Route: PO, Drug Active 2016 [facility] form: TAB, Q8H, Dosing Weight 102.926, kg, Start date: 06/16/16 0:00:00 CDT, Duration: 30 day, Stop date: 07/15/16 16:00:00 CDTNotes: (Same as: Lopressor) Sodium Chloride 250 mL, 250 Inactive 0.154 MEQ/ML ml/hr, Infuse 2016 [facility] Injectable Over: 1 hr, Solution Route: IV, 250, Drug form: INJ, ONCALL, Priority: Routine, Dosing Weight 102.926 kg, Start date: 06/15/16 22:00:00 CDT, Duration: 1 doses or times Sodium Chloride 750 mL, Rate: 75 No Longer 0.154 MEQ/ML ml/hr, Infuse Active 2016 [facility] Injectable over: 10 hr, Solution Route: IV, Dosing Weight 102.926 kg, Total Volume: 750, Start date: 06/15/16 21:02:00 CDT, Duration: 24 hr, Stop date: 06/16/16 21:01:00 CDT Saline Flush 10 ml, Route: No Longer 0.9% IVP, Drug Form: Active 2016 [facility] INJ, Dosing Weight 102.926, kg, Q12H, Start date: 06/15/16 21:00:00 CDT, Duration: 30 day, Stop date: 07/15/16 9:00:00 CDTNotes: (Same as: BD Posiflush) atorvastatin 40 mg, 1 tab, No Longer Route: PO, Drug Active 2016 [facility] form: TAB, Bedtime, Dosing Weight 102.926, kg, Start date: 06/15/16 21:00:00 CDT, Duration: 30 day, Stop date: 07/14/16 21:00:00 CDTNotes: (Same as: Lipitor) metoprolol 25 mg, Route: PO, Inactive tartrate Drug form: TAB, 2016 [facility] Q12H, Dosing Weight 102.926, kg, Start date: 06/15/16 21:00:00 CDT, Duration: 30 day, Stop date: 07/15/16 9:00:00 CDT Enoxaparin 100 mg, 1 mL, No Longer Route: SUB-Q, Active 2016 [facility] Drug form: INJ, [id number], Dosing Weight 102.926, kg, Start date: 06/15/16 19:00:00 CDT, Duration: 30 day, Stop date: 07/15/16 7:00:00 CDTNotes: Nurse to ensure documentation of patient education per anticoagulation policy. (Same as: Lovenox) Albuterol 0.833 3 ml, Route: NEB, No Longer MG/ML / Drug Form: SOLN, Active 2016 [facility] Ipratropium Dosing Weight [place] 0.167 102.926, kg, PRN, MG/ML Inhalant PRN Respiratory Solution Protocol, Start [DuoNeb] date: 06/15/16 13:56:00 CDT, Duration: 30 day, Stop date: 07/15/16 13:55:00 CDTNotes: (Same as: Duoneb) Saline Flush 10 ml, Route: No Longer 0.9% IVP, Drug Form: Active 2016 [facility] INJ, Dosing Weight 102.926, kg, PRN, PRN Line Flush, Start date: 06/15/16 13:52:00 CDT, Duration: 30 day, Stop date: 07/15/16 13:51:00 CDTNotes: (Same as: BD Posiflush) Labetalol 20 mg, 4 mL, No Longer Route: IVP, Drug Active 2016 [facility] form: INJ, Q4H, Dosing Weight 102.926, kg, PRN Hypertension, Start date: 06/15/16 13:52:00 CDT, Duration: 30 day, Stop date: 07/15/16 13:51:00 CDT, for SBP>180 or DBP>110, hold if HRNotes: (Same as: Normodyne, Trandate) Push over 2 minutes Give bolus over 2-3 minutes. Trazodone 50 mg, 1 tab, No Longer Hydrochloride Route: PO, Drug Active 2016 [facility] 50 MG Oral form: TAB, Tablet Bedtime, Dosing Weight 102.926, kg, PRN Insomnia, Start date: 06/15/16 13:52:00 CDT, Duration: 30 day, Stop date: 07/15/16 13:51:00 CDTNotes: (Same As: Desyrel) Miralax 17 gm, 1 pkt, No Longer Route: PO, Drug Active 2016 [facility] form: PWDR, Daily, Dosing Weight 102.926, kg, PRN Constipation, Start date: 06/15/16 13:52:00 CDT, Duration: 30 day, Stop date: 07/15/16 13:51:00 CDTNotes: Dissolve in 8 oz of water or juice. (Same as: Miralax) Nitroglycerin 0.4 mg, 1 tab, No Longer Route: SL, Drug Active 2016 [facility] form: TAB, Q5Min, Dosing Weight 102.926, kg, PRN Chest Pain, Start date: 06/15/16 13:52:00 CDT, Duration: 3 doses or times, Stop date: Limited # of timesNotes: (Same as:Nitroquick, Nitrostat) "Do Not Crush" Sublingual tablet Morphine 1 mg, 0.5 mL, No Longer Route: IVP, Drug Active 2016 [facility] form: INJ, Q2H, Dosing Weight 102.926, kg, PRN Chest Pain, Start date: 06/15/16 13:52:00 CDT, Duration: 2 doses or times, Stop date: Limited # of timesNotes: (Same as:MORPhine Sulfate) Ondansetron 4 mg, 1 tab, No Longer Route: PO, Drug Active 2016 [facility] form: TAB, Q8H, Dosing Weight 102.926, kg, PRN Nausea & Vomiting, Start date: 06/15/16 13:52:00 CDT, Duration: 30 day, Stop date: 07/15/16 13:51:00 CDTNotes: (Same as: Zofran) Allergies, Adverse Reactions, Alerts Substance Category Reaction Severity Reaction Status Date Comments Source type Reported Betadine Assertion Drug Active allergy [facility] Immunizations Immunization Date Site Status Last Updated Comments Source Given pneumococcal Right completed [facility] 13-valent 7 deltoid vaccine Results Order [...] in the following populations: [facility] 3m2 Individuals with unstable creatinine concentrations, including [...] 70 - 99 06/30 [facility] CHEM PANEL Potassium 4.0 meq/L 3.5 - 5.1 06/30 Lvl [facility] CHEM PANEL Sodium Lvl 140 meq/L 135 - 145 06/30 [facility] CHEM PANEL Creatinine 1.10 mg/dL 0.50 - 06/30 Lvl 1.40 [facility] CHEM PANEL BUN 21 mg/dL 7 - 22 06/30 [facility] CHEM PANEL AGAP 13.0 meq/L 10.0 - 04/ MH 20.0 [facility] CHEM PANEL CO2 27 meq/L 24 - 32 06/30 [facility] CHEM PANEL Calcium Lvl 8.2 mg/dL 8.5 - 10.5 06/30 [facility] CHEM PANEL Chloride Lvl 104 meq/L 95 - 109 06/30 [facility] Chest Chest 1view Clinical Indication:65 years Male with Tube placement/ removal/reposition 06/30 - 1view DX DX /2016 - [facility] Comparison: Chest x-ray of 06/27/2016 Read by: [...] 2.4 06/29 Lvl /2016 [facility] ELECTROLYT AGAP 15.4 meq/L 10.0 - 06/29 ES 20.0 [facility] ELECTROLYT eGFR 69 06/29 Result Comment: The [...] in the following populations: [facility] 3m2 Individuals with unstable creatinine concentrations, including [...] 70 - 99 06/29 [facility] ELECTROLYT BUN 26 mg/dL 7 - 22 06/29 [facility] ELECTROLYT Chloride Lvl 105 meq/L 95 - 109 06/29 [facility] ELECTROLYT Creatinine 1.10 mg/dL 0.50 - 04 [facility] Lvl 1.40 /2016 [facility] ELECTROLYT Sodium Lvl 137 meq/L 135 - 145 06/29 [facility] ELECTROLYT Potassium 4.4 meq/L 3.5 - 5.1 06/29 [facility] ELECTROLYT CO2 21 meq/L 24 - 32 06/29 [facility] ELECTROLYT Calcium Lvl 8.1 mg/dL 8.5 - 10.5 06/29 [facility] HEMATOLOGY Basophils 0.3 % 0.0 - 1.0 06/29 [facility] HEMATOLOGY Segs-Bands # 9.5 K/CMM 1.5 - 8.1 06/29 [facility] HEMATOLOGY Lymphocytes 1.2 K/CMM 1.0 - 5.5 06/29 [facility] HEMATOLOGY Monocytes # 1.4 K/CMM 0.0 - 0.8 06/29 [facility] HEMATOLOGY Basophils # 0.0 K/CMM 0.0 - 0.2 06/29 [facility] HEMATOLOGY Eosinophils 0.2 K/CMM 0.0 - 0.5 06/29 [facility] HEMATOLOGY Polychrom Moderate None Seen 06/29 [facility] *ABN* (06/29/16 5:06 AM) HEMATOLOGY Plt Morph Normal 06/29 [facility] (06/29/16 5:06 AM) HEMATOLOGY Lymphocytes 9.7 % 20.0 - 06/29 40.0 [facility] HEMATOLOGY Segs 77.0 % 45.0 - 06/29 75.0 [facility] HEMATOLOGY Eosinophils 1.6 % 0.0 - 4.0 06/29 [facility] HEMATOLOGY Monocytes 11.4 % 2.0 - 12.0 06/29 [facility] HEMATOLOGY MCH 28.6 pg 27.0 - 06/29 MH 31.0 [facility] Platelet 163 K/CMM 133 - 450 04 [facility] HEMATOLOGY RDW 14.2 % 11.5 - 06/29 MH 14.5 [facility] HEMATOLOGY MCHC 33.9 g/dL 32.0 - 06/29 MH 36.0 /2016 [facility] [place] MPV 8.3 fL 7.4 - 10.4 06/29 [facility] HEMATOLOGY RBC 3.11 M/CMM 4.70 - 06/29 6.10 [facility] HEMATOLOGY WBC 12.3 K/CMM 3.7 - 10.4 06/29 [facility] HEMATOLOGY MCV 84.3 fL 80.0 - 06/29 MH 94.0 /2016 [facility] HEMATOLOGY Hct 26.2 % 42.0 - 06/29 54.0 [facility] [place] Hgb 8.9 g/dL 14.0 - 06/29 18.0 [facility] CHEM PANEL eGFR 56 06/28 Result Comment: [...] in the following populations: [facility] 3m2 Individuals with unstable creatinine concentrations, including [...] 8.5 - 10.5 06/28 [facility] CHEM PANEL Potassium 4.5 meq/L 3.5 - 5.1 06/28 Lvl [facility] CHEM PANEL CO2 24 meq/L 24 - 32 06/28 [facility] CHEM PANEL Chloride Lvl 107 meq/L 95 - 109 06/28 [facility] CHEM PANEL Glucose Lvl 118 mg/dL 70 - 99 06/28 [facility] CHEM PANEL BUN 29 mg/dL 7 - 22 06/28 [facility] CHEM PANEL Sodium Lvl 139 meq/L 135 - 145 04/ /2016 [facility] CHEM PANEL Creatinine 1.30 mg/dL 0.50 - 06/28 MH Lvl 1.40 /2016 [facility] CHEM PANEL AGAP 12.5 meq/L 10.0 - 06/28 MH 20.0 [facility] CHEM PANEL Magnesium 2.7 mg/dL 1.8 - 2.4 06/28 MH Lvl /2016 [facility] HEMATOLOGY Hgb 9.0 g/dL 14.0 - 06/28 MH 18.0 /2016 [facility] HEMATOLOGY Hct 27.7 % 42.0 - 06/28 MH 54.0 /2016 [facility] HEMATOLOGY MCV 87.2 fL 80.0 - 06/28 MH 94.0 [facility] HEMATOLOGY MCH 28.5 pg 27.0 - 06/28 31.0 [facility] [place] MCHC 32.6 g/dL 32.0 - 06/28 36.0 [facility] HEMATOLOGY WBC 11.9 K/CMM 3.7 - 10.4 06/28 [facility] HEMATOLOGY RBC 3.17 M/CMM 4.70 - 06/28 MH 6.10 [facility] HEMATOLOGY RDW 14.6 % 11.5 - 06/28 MH 14.5 [facility] HEMATOLOGY Platelet 136 K/CMM 133 - 450 06/28 [facility] HEMATOLOGY MPV 8.6 fL 7.4 - 10.4 06/28 [facility] HEMATOLOGY Lymphocytes 1.5 K/CMM 1.0 - 5.5 06/28 MH # /2016 [facility] HEMATOLOGY Monocytes # 1.4 K/CMM 0.0 - 0.8 06/28 [facility] HEMATOLOGY Eosinophils 0.1 K/CMM 0.0 - 0.5 06/28 # /2016 [facility] HEMATOLOGY Lymphocytes 12.3 % 20.0 - 06/28 MH 40.0 [facility] HEMATOLOGY Monocytes 11.6 % 2.0 - 12.0 06/28 [facility] HEMATOLOGY Eosinophils 1.1 % 0.0 - 4.0 06/28 [facility] HEMATOLOGY Basophils 0.3 % 0.0 - 1.0 06/28 [facility] HEMATOLOGY Segs-Bands # 8.9 K/CMM 1.5 - 8.1 06/28 [facility] HEMATOLOGY Segs 74.7 % 45.0 - 06/28 75.0 /2016 [facility] CHEM PANEL Magnesium 2.4 mg/dL 1.8 - 2.4 / Lvl /2016 [facility] HEMATOLOGY WBC 18.6 K/CMM 3.7 - 10.4 06/27 /2016 [facility] HEMATOLOGY RDW 14.7 % 11.5 - 06/27 14.5 /2016 [facility] HEMATOLOGY MCHC 33.1 g/dL 32.0 - 06/27 36.0 /2016 [facility] HEMATOLOGY Hct 29.5 % 42.0 - 06/27 54.0 /2016 [facility] HEMATOLOGY MCH 28.1 pg 27.0 - 06/27 31.0 /2016 [facility] HEMATOLOGY MCV 84.7 fL 80.0 - 06/27 94.0 /2016 [facility] HEMATOLOGY MPV 9.7 fL 7.4 - 10.4 06/27 [facility] HEMATOLOGY Platelet 118 K/CMM 133 - 450 06/27 [facility] [place] Hgb 9.8 g/dL 14.0 - 06/27 18.0 /2016 [facility] HEMATOLOGY RBC 3.48 M/CMM 4.70 - 06/27 6.10 /2016 [facility] HEMATOLOGY Lymphocytes 2.0 K/CMM 1.0 - 5.5 / MH # /2016 [facility] HEMATOLOGY Segs 76.1 % 45.0 - 06/27 75.0 [facility] HEMATOLOGY Eosinophils 0.1 % 0.0 - 4.0 06/27 [facility] HEMATOLOGY Monocytes 12.7 % 2.0 - 12.0 06/27 [facility] HEMATOLOGY Segs-Bands # 14.2 K/CMM 1.5 - 8.1 06/27 [facility] HEMATOLOGY Basophils 0.5 % 0.0 - 1.0 06/27 [facility] HEMATOLOGY Lymphocytes 10.6 % 20.0 - 06/27 40.0 /2016 [facility] HEMATOLOGY Basophils # 0.1 K/CMM 0.0 - 0.2 06/27 [facility] HEMATOLOGY Monocytes # 2.4 K/CMM 0.0 - 0.8 06/27 [facility] Chest Chest 1view Study: Chest 1view DX 06/27 - 1view DX DX - [facility] Clinical Indication: Tube placement/removal/reposition Read by: Kaleb Melissa MD Dictated Date/time: 06/27/16 08:13 Electronically Signed by: Kaleb Melissa MD 06/27/16 08:15 FINAL REPORT Comparison: Chest x-ray from 06/26/2016 FINDINGS: 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 Right internal jugular central line is stable. [place] cath eter has been removed. Cardiac silhouette is normal in size. Calcified AP window lymph node is noted. Lung volumes are diminished and bibasilar atelectasis is seen. No pleural effusion or pneumothorax is seen. The osseous structures are unremarkable. IMPRESSION: Interval removal of [place] catheter SL: [id number] CHEM PANEL Phosphorus 2.0 mg/dL 2.5 - 4.5 06/26 /2016 [facility] HEMATOLOGY Eosinophils 0.0 K/CMM 0.0 - 0.5 06/26 # /2016 [facility] HEMATOLOGY Basophils # 0.0 K/CMM 0.0 - 0.2 06/26 [facility] PARATHYROI Ca Ion WB 1.11 . - 06/26 D PROFILE mMol/L . [facility] PARATHYROI Ca Norm WB 1.11 1.05 - 06/26 D PROFILE mMol/L . [facility] SPECIAL Hgb A1C 6.4 % <=5.6 % 06/26 CHEMISTRY /2016 [facility] Chest Chest 1view Clinical Indication:65 years Male with Tube placement/ removal/reposition 06/26 - 1view DX - [facility] Comparison: Chest x-ray 06/25/2016 Read by: Beck [...] 2.5 - 4.5 06/25 [facility] HEMATOLOGY RBC Morph Normal 06/25 [facility] (06/25/16 2:28 AM) HEMATOLOGY Plt Morph Normal 06/25 [facility] (06/25/16 2:28 AM) PARATHYROI Ca Norm WB 1.06 1.05 - 06/25 D PROFILE mMol/L 04.20 [facility] PARATHYROI Ca Ion WB 1.09 1.05 - 06/25 D PROFILE mMol/L 04.20 [facility] Chest Chest 1view Chest 1view DX 06/25 - 1view DX DX /2016 - [facility] CLINICAL HISTORY:Tube placement/removal/reposition Read by: Brett Lombardo [...] wires project over the patient's chest. SL: [id number] HEMATOLOGY POC 34.0 % 42.0 - 06/24 Hematocrit 54.0 [facility] HEMATOLOGY POC 11.6 g/dL 14.0 - 06/24 Hemoglobin 18.0 [facility] HEMATOLOGY POC Ion Ca 1.09 1.05 - 06/24 MH mMol/L . [facility] HEMATOLOGY POC 4.4 meq/L 3.5 - 5.1 06/24 Potassium /2016 [facility] HEMATOLOGY POC Sodium 143 meq/L 135 - 145 06/24 [facility] CHEM PANEL A/G Ratio 1.4 0.7 - 1.6 06/24 [facility] CHEM PANEL Globulin 2.1 g/dL 2.7 - 4.2 06/24 [facility] CHEM PANEL Bili 0.4 mg/dL 0.0 - 1.0 06/24 [facility] CHEM PANEL Bili Direct 0.2 mg/dL 0.0 - 0.3 06/24 [facility] CHEM PANEL Bili Total 0.6 mg/dL 0.2 - 1.3 06/24 [facility] CHEM PANEL Alk Phos 38 unit/L 39 - 136 06/24 [facility] CHEM PANEL AST 42 unit/L 0 - 37 06/24 [facility] CHEM PANEL ALT 51 unit/L 0 - 65 06/24 [facility] CHEM PANEL Albumin Lvl 2.9 g/dL 3.5 - 5.0 06/24 [facility] CHEM PANEL Total 5.0 g/dL 6.4 - 8.4 06/24 [facility] CHEM PANEL Phosphorus 2.3 mg/dL 2.5 - 4.5 06/24 [facility] HEMATOLOGY FSP <5 ug/ml <5 ug/ml 06/24 [facility] HEMATOLOGY Fibrinogen 206 mg/dL 230 - 510 06/24 Lvl [facility] HEMATOLOGY PTT 34.9 s 22.9 - 06/24 MH 35.8 [facility] HEMATOLOGY INR 1.27 0.85 - 06/24 1. [facility] HEMATOLOGY PT 16.2 s 12.0 - 06/24 14. [facility] PARATHYROI Ca Norm WB 1.09 1.05 - 06/24 D PROFILE mMol/L 1. [facility] PARATHYROI Ca Ion WB 1.10 1.05 - 06/24 D PROFILE mMol/L . [facility] HEMATOLOGY Fibrinogen 196 mg/dL 230 - 510 06/24 Lvl [facility] HEMATOLOGY PTT 32.8 s 22.9 - 06/24 35.8 [facility] HEMATOLOGY PT 16.6 s 12.0 - 06/24 14. [facility] HEMATOLOGY INR 1.32 0.85 - 06/24 1. [facility] Chest Chest 1view Patient Name: CHYNA RYAN 06/24 - 1view DX DX /2016 - [facility] : 1950; Age: 65 years y/o Male MR: [id number] Read by: Ted Hernandez MD Dictated Date/time: [...] base. 5. There is a right IJ [place] catheter. The catheter tip is in the expected location of the pulmonary valve. The [place] catheter does not extend into either main pulmonary artery. 6. The tip of the right IJ central venous catheter is in the lower superior vena cava. 7. There are mild scattered degenerative changes involving the thoracic spine. The regional skeleton is otherwise unremarkable. SL: [facility] BLOOD BANK Antibody Negative 06/24 RESULTS Scrn [facility] (06/24/16 4:15 AM) BLOOD BANK ABO/Rh A POS 06/24 RESULTS /2016 [facility] BLOOD BANK Platelet Product available 06/24 RESULTS product /2016 [facility] (06/24/16 4:00 AM) BLOOD BANK FFP product Product available 06/24 RESULTS /2016 [facility] (06/24/16 4:00 AM) BLOOD BANK Cryo product Product available 06/24 RESULTS /2016 [facility] (06/24/16 4:00 AM) BLOOD BANK RBC product Product available 06/24 RESULTS /2016 [facility] [place] (06/24/16 4:00 AM) HEMATOLOGY INR 1.05 0.85 - 06/22 MH 1. /2016 [facility] HEMATOLOGY PTT 37.0 s 22.9 - 06/22 35.8 /2016 [facility] [place] HEMATOLOGY PT 13.9 s 12.0 - 06/22 14.7 /2016 [facility] [place] BLOOD BANK ABO/Rh A POS 06/20 RESULTS /2016 [facility] [place] BLOOD BANK Antibody Negative 06/20 RESULTS Scrn [facility] [place] (06/20/16 5:18 AM) HEMATOLOGY Plt Morph Normal 06/20 /2016 [facility] [place] (06/20/16 5:18 AM) HEMATOLOGY RBC Morph Normal 06/20 /2016 [facility] [place] (06/20/16 5:18 AM) MOLECULAR HCV RNA 6.9 06/20 DIAGNOSTIC Log10 [iU]/mL /2016 [facility] [place] MOLECULAR HCV RNA [id number] 06/20 DIAGNOSTIC VirLoad [iU]/mL /2016 [facility] [place] BLOOD BANK FFP product Product available 06/20 RESULTS /2016 [facility] [place] (06/20/16 5:00 AM) BLOOD BANK Cryo product Product available 06/20 RESULTS /2016 [facility] [place] (06/20/16 5:00 AM) BLOOD BANK RBC product Product available 06/20 RESULTS /2016 [facility] [place] (06/20/16 5:00 AM) BLOOD BANK Platelet Product available 06/20 RESULTS product /2016 [facility] [place] (06/20/16 5:00 AM) BACTERIAL MRSA by PCR Negative 06/18 - SEROLOGY /2016 [facility] [place] (06/18/16 5:33 AM) CHEM PANEL B/C Ratio 18 6 - 25 06/18 [facility] [place] CHEM PANEL Globulin 3.9 g/dL 2.7 - 4.2 06/18 [facility] [place] CHEM PANEL A/G Ratio 0.8 0.7 - 1.6 06/18 [facility] [place] CHEM PANEL ALT 67 unit/L 0 - 65 06/18 [facility] [place] CHEM PANEL AST 74 unit/L 0 - 37 06/18 [facility] [place] CHEM PANEL Total 7.1 g/dL 6.4 - 8.4 06/18 Protein [facility] [place] CHEM PANEL Albumin Lvl 3.2 g/dL 3.5 - 5.0 06/18 [facility] [place] CHEM PANEL Alk Phos 58 unit/L 39 - 136 06/18 [facility] [place] CHEM PANEL Bili Total 0.4 mg/dL 0.2 - 1.3 06/18 [facility] [place] LIPIDS CHD Risk 4.04 4.00 - 06/18 7.30 [facility] [place] LIPIDS VLDL 16 06/18 [facility] [place] LIPIDS LDL 121 mg/dL <=99 mg/dL 06/18 (Calculated) [facility] [place] LIPIDS HDL 45 mg/dL >=61 mg/dL 06/18 [facility] [place] LIPIDS Trig 82 mg/dL <=149 06/18 mg/dL [facility] [place] LIPIDS Chol 182 mg/dL <=199 06/18 mg/dL [facility] [place] SPECIAL Hgb A1C 6.4 % <=5.6 % 06/18 CHEMISTRY [facility] [place] URINE AND UA null 0.1 - 1.0 06/18 STOOL Urobilinogen [facility] [place] URINE AND UA Sq Epi None Seen 06/18 [facility] [place] URINE AND UA RBC null 0 - 2 06/18 [facility] [place] URINE AND UA Bili Negative Negative 06/18 [facility] [place] *NA* (06/18/16 5:33 AM) URINE AND UA Ketones Negative Negative 06/18 [facility] mg/dL mg/dL [facility] [place] URINE AND UA Glucose Negative Negative 06/18 [facility] mg/dL mg/dL [facility] [place] URINE AND UA WBC null 0 - 5 06/18 [facility] [place] URINE AND UA Leuk Est Negative Negative 06/18 [facility] [place] (06/18/16 5:33 AM) URINE AND UA Nitrite Negative Negative 06/18 [facility] [place] (06/18/16 5:33 AM) URINE AND UA Blood Negative Negative 06/18 [facility] [place] (06/18/16 5:33 AM) URINE AND UA Protein Negative Negative 06/18 [facility] mg/dL mg/dL [facility] [place] URINE AND UA Color Light Yellow Yellow 06/18 [facility] [place] *NA* (06/18/16 5:33 AM) URINE AND UA Turbidity Clear Clear 06/18 [facility] [place] (06/18/16 5:33 AM) URINE AND UA pH 5.0 5.0 - 8.0 06/18 [facility] [place] URINE AND UA Spec Grav 1.008 <=1.030 06/18 [facility] [place] Chest 2 Chest 2 CHEST, 2 VIEWS 06/18 - views DX views - [facility] [place] HISTORY: ; Respiratory distress; Read by: Vikash Joseph MD Dictated Date/time: 06/18/16 09:54 Electronically Signed by: Vikash Joseph MD 06/18/16 09:55 FINAL REPORT COMPARISON: June 15, 2016 FINDINGS: Lungs are underinflated with mild bilateral basal atelectasis/infiltrate, left greater than right. No pleural effusion or pneumothorax. Stable mediastinum. No acute osseous abnormality. SL: [id number] URINE AND UA Turbidity Clear Clear 06/18 [facility] [place] [facility] (06/17/16 11:28 PM) URINE AND UA pH 6.0 5.0 - 8.0 06/18 [facility] [place] URINE AND UA Color Light Yellow Yellow 06/18 [facility] [place] *NA* (06/17/16 11:28 PM) URINE AND UA Spec Grav 1.010 <=1.030 06/18 STOOL [facility] [place] URINE AND UA WBC 1 /HPF 0 - 5 06/18 STOOL [facility] [place] URINE AND UA Bacteria Occasional None Seen 06/18 [facility] /HPF /HPF [facility] [place] URINE AND UA Glucose Negative Negative 06/18 [facility] mg/dL mg/dL [facility] [place] URINE AND UA Protein Negative Negative 06/18 [facility] mg/dL mg/dL [facility] [place] URINE AND UA null 0.1 - 1.0 06/18 STOOL Urobilinogen /2016 [facility] [place] URINE AND UA Sq Epi None Seen 06/18 STOOL [facility] [place] URINE AND UA Leuk Est Negative Negative 06/18 STOOL [facility] [place] (06/17/16 11:28 PM) URINE AND UA Nitrite Negative Negative 06/18 STOOL [facility] [place] (06/17/16 11:28 PM) URINE AND UA Blood Negative Negative 06/18 STOOL [facility] [place] (06/17/16 11:28 PM) URINE AND UA Bili Negative Negative 06/18 [facility] [place] *NA* (06/17/16 11:28 PM) URINE AND UA Ketones Negative Negative 06/18 [facility] mg/dL mg/dL [facility] [place] Abdomen Abdomen RUQ ULTRASOUND ABDOMEN RIGHT UPPER QUADRANT 06/17 RUQ US - [facility] [place] HISTORY: Abnormal Lab tests- LFT; Read by: [...] right abdominal ascites. IMPRESSION: Normal study. SL: [id number] LIPIDS CHD Risk 4.26 4.00 - 06/16 MH 7.30 [facility] [place] LIPIDS VLDL 22 06/16 [facility] [place] LIPIDS LDL 118 mg/dL <=99 mg/dL 06/16 (Calculated) /2016 [facility] [place] LIPIDS HDL 43 mg/dL >=61 mg/dL 06/16 [facility] [place] LIPIDS Chol 183 mg/dL <=199 06/16 mg/dL /2016 [facility] [place] LIPIDS Trig 112 mg/dL <=149 06/16 mg/dL /2017 [facility] [place] CARDIAC Total CK 384 unit/L 12 - 191 06/16 ENZYMES /2017 [facility] [place] CARDIAC Troponin-I 7.44 ng/mL 0.00 - 06/16 Result ENZYMES 0.40 /2017 Comment: [facility] [place] [facility] Critical Result(s) called to Missael Alvarenga at 06/15/2016 20:33 by TW. Read back OK. CARDIAC CK MB Index 4.4 0.0 - 2.5 06/16 ENZYMES /2016 [facility] [place] CARDIAC CK MB 17.0 ng/mL 0.5 - 3.6 06/16 ENZYMES /2017 [facility] [place] CARDIAC CK MB Index 4.8 0.0 - 2.5 06/15 ENZYMES /2017 [facility] [place] CARDIAC Total CK 412 unit/L 12 - 06/15 ENZYMES /2017 [facility] [place] CARDIAC CK MB 19.8 ng/mL 0.5 - 3.6 06/15 ENZYMES /2017 [facility] [place] CARDIAC Troponin-I 6.52 ng/mL 0.00 - 06/15 Result ENZYMES 0.40 /2017 Comment: [facility] [place] [facility] Critical Result(s) called to Robert long at 06/15/2016 16:44 by TW. Read back OK. CHEM PANEL Globulin 3.7 g/dL 2.7 - 4.2 06/15 /2016 [facility] [place] CHEM PANEL A/G Ratio 0.9 0.7 - 1.6 06/15 /2016 [facility] [place] CHEM PANEL B/C Ratio 19 6 - 25 06/15 [facility] [place] CHEM PANEL Bili Total 0.5 mg/dL 0.2 - 1.3 06/15 [facility] [place] CHEM PANEL Albumin Lvl 3.3 g/dL 3.5 - 5.0 06/15 [facility] [place] CHEM PANEL Total 7.0 g/dL 6.4 - 8.4 06/15 [facility] [place] CHEM PANEL Alk Phos 68 unit/L 39 - 136 06/15 [facility] [place] CHEM PANEL AST 51 unit/L 0 - 37 06/15 [facility] [place] CHEM PANEL ALT 44 unit/L 0 - 65 06/15 [facility] [place] [facility] DRUG U Cannab Scr Negative Negative 06/15 SCREEN /2016 [facility] [place] *NA* (06/15/16 2:56 PM) DRUG U Phencyc Negative Negative 06/15 SCREEN Scr /2016 [facility] [place] *NA* (06/15/16 2:56 PM) DRUG U Opiate Scr Negative Negative 06/15 SCREEN [facility] [place] *NA* (06/15/16 2:56 PM) DRUG U Cocaine Negative Negative 06/15 SCREEN Scr [facility] [place] *NA* (06/15/16 2:56 PM) DRUG U Benzodia Negative Negative 06/15 SCREEN Scr [facility] [place] *NA* (06/15/16 2:56 PM) DRUG U Amph Scr Negative Negative 06/15 SCREEN [facility] [place] *NA* (06/15/16 2:56 PM) DRUG U Elsy Scr Negative Negative 06/15 SCREEN [facility] [place] *NA* (06/15/16 2:56 PM) DRUG UDS Note See Note 06/15 SCREEN [facility] [place] (06/15/16 2:56 PM) IMMUNOLOGY Hep Bs Ag Negative Negative 06/15 [facility] [place] *NA* (06/15/16 2:56 PM) IMMUNOLOGY Hep B Core Negative Negative 06/15 IgM /2016 [facility] [place] *NA* (06/15/16 2:56 PM) IMMUNOLOGY Hep C Ab Positive 06/15 [facility] [place] *ABN* (06/15/16 2:56 PM) IMMUNOLOGY Hep A IgM Negative Negative 06/15 [facility] [place] *NA* (06/15/16 2:56 PM) SPECIAL Hgb A1C 6.6 % <=5.6 % 06/15 CHEMISTRY /2016 [facility] [place] URINE AND UA pH 5.5 5.0 - 8.0 06/15 STOOL [facility] [place] URINE AND UA Spec Grav 1.020 <=1.030 06/15 STOOL [facility] [place] URINE AND UA Protein Negative Negative 06/15 STOOL /2016 [facility] [place] (06/15/16 2:56 PM) URINE AND UA Turbidity Clear Clear 06/15 STOOL [facility] [place] (06/15/16 2:56 PM) URINE AND UA Leuk Est Negative Negative 06/15 STOOL [facility] [place] (06/15/16 2:56 PM) URINE AND Micro? Not Indicated 06/15 STOOL [facility] [place] (06/15/16 2:56 PM) URINE AND UA Glucose Negative Negative 06/15 STOOL [facility] [place] (06/15/16 2:56 PM) URINE AND UA Bili Negative Negative 06/15 STOOL [facility] [place] *NA* (06/15/16 2:56 PM) URINE AND UA Ketones Negative Negative 06/15 STOOL [facility] [place] *NA* (06/15/16 2:56 PM) URINE AND UA Blood Negative Negative 06/15 STOOL [facility] [place] (06/15/16 2:56 PM) URINE AND UA Nitrite Negative Negative 06/15 STOOL [facility] [place] (06/15/16 2:56 PM) URINE AND UA 0.2 EU/dL 0.1 - 1.0 06/15 STOOL Urobilinogen [facility] [place] URINE AND UA Color Yellow Yellow 06/15 STOOL [facility] [place] *NA* (06/15/16 2:56 PM) Chest 2 Chest 2 Patient Name: CHYNA RYAN 06/15 - views DX views DX /2016 - [facility] : 1950; Age: 65 years Male MR: [id number] Read by: Azeem Duffy MD Dictated Date/time: [...] follow-up chest imaging to document resolution. SL: [id number] Vital Signs Vital Sign Value Date Comments Source Respitory Rate 20 06/30/2016 [facility] Systolic (mm Hg) 114 06/30/2016 [facility] Diastolic (mm Hg) 75 06/30/2016 [facility] Heart Rate 76 06/30/2016 [facility] Respitory Rate 20 06/30/2016 [facility] Systolic (mm Hg) 105 06/30/2016 [facility] Diastolic (mm Hg) 60 06/30/2016 [facility] Heart Rate 77 06/30/2016 [facility] Systolic (mm Hg) 108 06/30/2016 [facility] Diastolic (mm Hg) 68 06/30/2016 [facility] Heart Rate 70 06/30/2016 [facility] Respitory Rate 18 06/30/2016 [facility] Weight 111.384 06/29/2016 [facility] Weight 110.469 06/28/2016 [facility] Height 177.8 cm 06/25/2016 [facility] Height 177.8 cm 06/25/2016 [facility] Height 177.8 cm 06/24/2016 [facility] Temperature Oral (F) 97.6 F 06/24/2016 [facility] Weight 103.653 06/24/2016 [facility] Temperature Oral (F) 97.9 F 06/20/2016 [facility] BMI Calculated 32.56 06/15/2016 [facility] Encounters Location Location Encounter Encounter Reason Attending ADM DC Status Source Details Type Number For Provider Date Date Visit [facility] Inpatient [id number] Eugenia Benedict 06/15 07/01 [facility] Procedures Procedure Code Date Perfomer Comments Source Repair of knee [id number] 03/27/1973 [facility] collateral ligaments
--- OUTSIDE RECORDS SUMMARY | 2018-07-25 15:49 | XMS REPORT ---
:1950 [facility] [address] [place] [address] [address] [place] [address] Care Team Providers Name Role Phone Unavailable Unavailable Unavailable Problems This patient has no known problems. Allergies, Adverse Reactions, Alerts This patient has no known allergies or adverse reactions. Medications This patient has no known medications.
[2018-07-25] MEDS ORDERED: PROMETHAZINE 25 MG/ML VIAL ONE (16:42)
[2018-07-25] MEDS ORDERED: NA CHLORIDE 0.9% 500 ML ONE (16:42)
[2018-07-25] MEDS ORDERED: MAGNESIUM CITRATE 300 ML BOT ONE (16:43)
[2018-07-25 17:06] LABS: Absolute Lymphocytes (CBC) 0.4 K/uL (0.7-4.9); Absolute Monocytes 0.4 K/uL (0.1-1.3); Absolute Neutrophil 6.9 K/uL (1.8-8.0); Basophils % 0.4 % (0-1.3); Eosinophils % 0.1 % (0-4.4); Hematocrit 42.8 % (39.6-49.0); Lymphocytes % 5.3 % (15.3-44.8); MPV 7.9 fL (7.6-11.3); Monocytes % 5.1 % (3.3-12.3); RBC Red Blood Cell Count 5.07 M/uL (4.33-5.43)
[2018-07-25 17:19] LABS: Potassium 4.2 mmol/L (3.5-5.1)
--- NOTE | 2018-07-25 17:55 | EDPHYS ---
Physician Documentation [facility] Name: Valerio Berg Age: 67 yrs Sex: Male : 1950 Arrival Date: 07/25/2018 Time: 15:[address] Private MD: Chapo Veliz C ED Physician Madeline Darby HPI: 07/25 16:23 This 67 yrs old Black Male presents to ER via Wheelchair with complaints of Breathing snw Difficulty, Constipation. 16:23 The patient has shortness of breath with light activity. Onset: The symptoms/episode snw began/occurred gradually, last night. Duration: The symptoms are chronic, and have existed for years, are continuous. The patient's shortness of breath has no apparent modifying factors. Associated signs and symptoms: Pertinent positives: nausea and vomiting since this am. Ate bar-b-que last night. Pt c/o constipation, felt more nauseated post drinking Miralax. Severity of symptoms: At their worst the symptoms were moderate. The patient has experienced similar episodes in the past. It is unknown whether or not the patient has recently seen a physician. Historical: - Allergies: 15:51 Betadine; aa5 18:11 Povidone-Iodine; tw2 - Home Meds: 18:11 aspirin 81 mg Oral TbEC 1 tab once daily [Active]; tw2 - PMHx: 15:51 COPD; aa5 15:52 Myocardial infarction; Borderline Diabetes; aa5 - PSHx: 15:52 CABG; Knee surgery; hip sx; aa5 - Immunization history:: Adult Immunizations unknown. - Social history:: Smoking status: Patient/guardian denies using tobacco. - Ebola Screening: : No symptoms or risks identified at this time. ROS: 16:20 Constitutional: Negative for fever, chills, and weight loss, Eyes: Negative for injury, snw pain, redness, and discharge, ENT: Negative for injury, pain, and discharge, Neck: Negative for injury, pain, and swelling, Cardiovascular: Negative for chest pain, palpitations, and edema. 16:20 Back: Negative for injury and pain, : Negative for injury, bleeding, discharge, and swelling, MS/Extremity: Negative for injury and deformity, Skin: Negative for injury, rash, and discoloration, Neuro: Negative for headache, weakness, numbness, tingling, and seizure. 16:20 Respiratory: Positive for shortness of breath. 16:20 Abdomen/GI: Positive for nausea, vomiting, constipation. Exam: 16:22 Constitutional: This is a well developed, well nourished patient who is awake, alert, snw and in no acute distress. Head/Face: Normocephalic, atraumatic. Eyes: Pupils equal round and reactive to light, extra-ocular motions intact. Lids and lashes normal. Conjunctiva and sclera are non-icteric and not injected. Cornea within normal limits. Periorbital areas with no swelling, redness, or edema. ENT: Nares patent. No nasal discharge, no septal abnormalities noted. Tympanic membranes are normal and external auditory canals are clear. Oropharynx with no redness, swelling, or masses, exudates, or evidence of obstruction, uvula midline. Mucous membranes moist. Neck: Trachea midline, no thyromegaly or masses palpated, and no cervical lymphadenopathy. Supple, full range of motion without nuchal rigidity, or vertebral point tenderness. No Meningismus. Chest/axilla: Normal chest wall appearance and motion. Nontender with no deformity. No lesions are appreciated. 16:22 Cardiovascular: Regular rate and rhythm with a normal S1 and S2. No gallops, murmurs, or rubs. Normal PMI, no JVD. No pulse deficits. Respiratory: Lungs have equal breath sounds bilaterally, clear to auscultation and percussion. No rales, rhonchi or wheezes noted. No increased work of breathing, no retractions or nasal flaring. 16:22 Back: No spinal tenderness. No costovertebral tenderness. Full range of motion. Skin: Warm, dry with normal turgor. Normal color with no rashes, no lesions, and no evidence of cellulitis. MS/ Extremity: Pulses equal, no cyanosis. Neurovascular intact. Full, normal range of motion. Neuro: Awake and alert, GCS 15, oriented to person, place, time, and situation. Cranial nerves II-XII grossly intact. Motor strength 5/5 in all extremities. Sensory grossly intact. Cerebellar exam normal. Normal gait. Psych: Awake, alert, with orientation to person, place and time. Behavior, mood, and affect are within normal limits. 16:22 Abdomen/GI: Inspection: obese Bowel sounds: normal, Palpation: nontender, in all quadrants. Vital Signs: 15:52 BP 119 / 52; Pulse 90; Resp 18 S; Temp 99.1(O); Pulse Ox 97% on R/A; Weight 102.06 kg aa5 (R); Height 5 ft. 10 in. (177.80 cm) (R); Pain 0/10; 17:07 BP 94 / 73; Pulse 89; Resp 18; Pulse Ox 99% on R/A; tw2 18:46 BP 116 / 75; Pulse 81; Resp 17; Pulse Ox 100% on R/A; tw2 20:00 BP 103 / 61; Pulse 80; Resp 18; Pulse Ox 100% on R/A; tl2 20:25 BP 103 / 61; Pulse 70; Resp 20; Temp 98.3(O); Pulse Ox 99% on R/A; tl2 15:52 Body Mass Index 32.28 (102.06 kg, 177.80 cm) aa5 17:07 pt requested o2 at 2L at this time. tw2 MDM: 16:11 Patient medically screened. snw 17:54 Data reviewed: vital signs, nurses notes. Data interpreted: Pulse oximetry: on room air snw is 99 %. Interpretation: normal. Counseling: I had a detailed discussion with the patient and/or guardian regarding: the historical points, exam findings, and any diagnostic results supporting the discharge/admit diagnosis, lab results, radiology results, the need for outpatient follow up. Response to treatment: the patient's symptoms have markedly improved after treatment, + bm in ED, pt states he feels better. Special discussion: Based on the history and exam findings, there is no indication for further emergent testing or inpatient evaluation. I discussed with the patient/guardian the need to see the primary care provider for further evaluation of the symptoms. 07/25 16:20 Order name: CBC with Diff; Complete Time: 19:02 snw 07/25 16:20 Order name: Chem 7; Complete Time: 17:21 snw 07/25 16:19 Order name: XRAY Abdomen Acute Series; Complete Time: 19:02 snw 07/25 18:17 Order name: Manual Differential; Complete Time: 19:02 EDMS 07/25 18:20 Order name: Urine Dipstick--Ancillary (enter results); Complete Time: 19:02 bd 07/25 16:19 Order name: Urine Dipstick-Ancillary (obtain specimen); Complete Time: 18:08 snw 07/25 17:23 Order name: Misc. Order: Bolus 500ml of IVF infusing now please; Complete Time: 18:06 snw Administered Medications: 16:33 Drug: Phenergan 12.5 mg Route: IM; Site: right deltoid; tw2 16:54 Follow up: Response: No adverse reaction; Nausea is decreased tw2 16:53 Drug: NS 0.9% 1000 ml Route: IV; Rate: 75 ml/hr; Site: left antecubital; tw2 18:05 Follow up: Rate change bolus tw2 18:47 Follow up: Response: No adverse reaction; IV Status: Completed infusion; IV Intake: tw2 500ml 16:54 Drug: Magnesium Citrate Liquid 300 ml Route: PO; tw2 17:58 Follow up: Response: No adverse reaction; pt had large bm at this time. tw2 18:05 Drug: Simethicone 120 mg Route: PO; tw2 18:47 Follow up: Response: No adverse reaction tw2 Disposition: 07/25/18 17:54 Discharged to Home. Impression: Chronic obstructive pulmonary disease, unspecified, Generalized abdominal pain, Abnormal results of kidney function studies - chronic. - Condition is Stable. - Discharge Instructions: Abdominal Pain, Adult, Chronic Obstructive Pulmonary Disease, Constipation, Adult, Nausea, Adult, Chronic Kidney Disease, Adult, Rehydration, Elderly. - Medication Reconciliation Form, Thank You Letter, Antibiotic Education, Prescription Opioid Use form. - Follow up: A [facility]; When: 1 - 2 days; Reason: Recheck today's complaints, Continuance of care, Re-evaluation by your physician. Follow up: Emergency Department; When: As needed; Reason: Worsening of condition. Signatures: Dispatcher [employer] EDMS Vikki [place], DUMB WAITER OPERATOR-C DUMB WAITER OPERATOR-Csnw Enedelia Boyle RN RN aa5 Debbie Arora RN RN tw2 Josette Osman RN RN tl2 Madeline Darby MD MD ma2 Corrections: (The following items were deleted from the chart) 21:06 17:54 07/25/2018 17:54 Discharged to Home. Impression: Chronic obstructive pulmonary tl2 disease, unspecified; Generalized abdominal pain; Abnormal results of kidney function studies - chronic. Condition is Stable. Discharge Instructions: Abdominal Pain, Adult, Chronic Obstructive Pulmonary Disease, Nausea, Adult, Chronic Kidney Disease, Adult, Rehydration, Elderly. Forms are Medication Reconciliation Form, Thank You Letter, Antibiotic Education, Prescription Opioid Use. Follow up: [facility]; When: 1 - 2 days; Reason: Recheck today's complaints, Continuance of care, Re-evaluation by your physician. Follow up: Emergency Department; When: As needed; Reason: Worsening of condition. snw
--- NOTE | 2018-07-25 17:55 | ER ---
Nurse's Notes [facility] Name: Valerio Berg Age: 67 yrs Sex: Male : 1950 Arrival Date: 07/25/2018 Time: 15:[address] Private MD: Chapo Veliz C Diagnosis: Chronic obstructive pulmonary disease, unspecified;Generalized abdominal pain;Abnormal results of kidney function studies-chronic Presentation: 07/25 15:48 Presenting complaint: Patient states: chronic SOB that has gotten worse since aa5 yesterday. Pt states "my stomach is upset and I am having trouble having bowel movement but I do take laxatives". 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 Pt states "I had a bowel movement 2 hours ago but it was hard and I had to force it out". Transition of care: patient was not received from another setting of care. Onset of symptoms was June 2018. Risk Assessment: Do you want to hurt yourself or someone else? Patient reports no desire to harm self or others. Initial Sepsis Screen: Does the patient meet any 2 criteria? No. Patient's initial sepsis screen is negative. Does the patient have a suspected source of infection? No. Patient's initial sepsis screen is negative. Care prior to arrival: None. 15:48 Method Of Arrival: Wheelchair aa5 15:48 Acuity: ADRIÁN 3 aa5 Triage Assessment: 18:10 General: Appears in no apparent distress. Respiratory: Onset: The symptoms/episode tw2 began/occurred yesterday, the patient has mild shortness of breath. Historical: - Allergies: 15:51 Betadine; aa5 18:11 Povidone-Iodine; tw2 - Home Meds: 18:11 aspirin 81 mg Oral TbEC 1 tab once daily [Active]; tw2 - PMHx: 15:51 COPD; aa5 15:52 Myocardial infarction; Borderline Diabetes; aa5 - PSHx: 15:52 CABG; Knee surgery; hip sx; aa5 - Immunization history:: Adult Immunizations unknown. - Social history:: Smoking status: Patient/guardian denies using tobacco. - Ebola Screening: : No symptoms or risks identified at this time. Screenin:05 Abuse screen: Denies threats or abuse. Nutritional screening: No deficits noted. tw2 Tuberculosis screening: No symptoms or risk factors identified. Fall Risk Secondary diagnosis (15 points) impaired mobility, Ambulatory Aid- Crutches/Cane/Walker (15 pts). Assessment: 16:05 General: Appears in no apparent distress. Behavior is calm, cooperative, appropriate tw2 for age. Pain: Complains of pain in abdomen. Neuro: Level of Consciousness is awake, alert, obeys commands, Oriented to person, place, time, situation. Cardiovascular: Heart tones S1 S2 Patient's skin is warm and dry. Rhythm is regular. Respiratory: Airway is patent Respiratory effort is even, unlabored, Respiratory pattern is regular, symmetrical, Breath sounds are clear bilaterally. GI: Abdomen is round non-distended, Bowel sounds present X 4 quads. Reports constipation. : No signs and/or symptoms were reported regarding the genitourinary system. EENT: No signs and/or symptoms were reported regarding the EENT system. Derm: No signs and/or symptoms reported regarding the dermatologic system. Musculoskeletal: Range of motion: intact in all extremities. 17:06 Reassessment: Patient appears in no apparent distress at this time. No changes from tw2 previously documented assessment. Patient and/or family updated on plan of care and expected duration. Pain level reassessed. 18:09 Reassessment: Patient and/or family updated on plan of care and expected duration. Pain tw2 level reassessed. pt appears to be drowsy at this time, pending completion of IV fluids PRIOR to discharge and pt to become more alert as pt drove to ER. 18:49 Reassessment: pt still drowsy at this time, will continue to monitor, pt able to answer tw2 questions when name is called, states he has no one to call that he is driving. 18:52 Reassessment: pt states "just let me take a quick nap then i can drive home". tw2 19:24 Reassessment: Patient appears in no apparent distress at this time. pt appears to be tl2 sleeping, pt states he does not have a ride home and he drove himself here. Charge nurse notified. Will discharge when patient is awake and alert enough to drive home. 20:25 Reassessment: pt was able to have another large BM. Called home health provider and she tl2 agreed to pick patient up. She will arrive in approx 30 minutes. 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 Pt AOx4. Discharged out of ER via tl2 wheelchair with family. Family and pt verbalized understanding of discharge instructions. Vital Signs: 15:52 BP 119 / 52; Pulse 90; Resp 18 S; Temp 99.1(O); Pulse Ox 97% on R/A; Weight 102.06 kg aa5 (R); Height 5 ft. 10 in. (177.80 cm) (R); Pain 0/10; 17:07 BP 94 / 73; Pulse 89; Resp 18; Pulse Ox 99% on R/A; tw2 18:46 BP 116 / 75; Pulse 81; Resp 17; Pulse Ox 100% on R/A; tw2 20:00 BP 103 / 61; Pulse 80; Resp 18; Pulse Ox 100% on R/A; tl2 20:25 BP 103 / 61; Pulse 70; Resp 20; Temp 98.3(O); Pulse Ox 99% on R/A; tl2 15:52 Body Mass Index 32.28 (102.06 kg, 177.80 cm) aa5 17:07 pt requested o2 at 2L at this time. tw2 ED Course: 15:43 Patient arrived in ED. mr 15:44 Chapo Veliz MD is Private Physician. mr 15:48 Arm band placed on. aa5 15:50 Triage completed. aa5 16:04 Debbie Arora RN is Primary Nurse. tw2 16:05 Bed in low position. front desk monitor on. Pulse ox on. NIBP on. tw2 16:11 Vikki Longoria FNP-C is PSYCHIATRICP. snw 16:11 Madeline Darby MD is Attending Physician. snw 16:42 Radiology exam delayed due to IV insertion attempt and/or patient not having ml appropriate IV at this time. patient is not appropriately dressed for the exam at this time. 16:50 Inserted saline lock: 22 gauge in left antecubital area, using aseptic technique. tw2 ,using aseptic technique. per APURVA Gramajo Blood collected. 16:59 Patient has correct armband on for positive identification. Placed in gown. Call light mh5 in reach. Side rails up X 1. Warm blanket given. Pulse ox on. NIBP on. 16:59 Missed attempt(s): 22 gauge in left in right antecubital area. mh5 17:01 Chem 7 Sent. mh5 17:01 CBC with Diff Sent. mh5 17:47 XRAY Abdomen Acute Series In Process Unspecified. EDMS 17:54 Chapo Veliz MD is Referral Physician. snw 18:00 HAD LARGE BOWEL MOVEMENT IN BEDSIDE COMMODE. mh5 18:06 completion of IV fluids PRIOR to discharge at this time. tw2 19:09 Report given to APURVA Finch. tw2 21:05 No provider procedures requiring assistance completed. IV discontinued, intact, tl2 bleeding controlled, No redness/swelling at site. Pressure dressing applied. Administered Medications: 16:33 Drug: Phenergan 12.5 mg Route: IM; Site: right deltoid; tw2 16:54 Follow up: Response: No adverse reaction; Nausea is decreased tw2 16:53 Drug: NS 0.9% 1000 ml Route: IV; Rate: 75 ml/hr; Site: left antecubital; tw2 18:05 Follow up: Rate change bolus tw2 18:47 Follow up: Response: No adverse reaction; IV Status: Completed infusion; IV Intake: tw2 500ml 16:54 Drug: Magnesium Citrate Liquid 300 ml Route: PO; tw2 17:58 Follow up: Response: No adverse reaction; pt had large bm at this time. tw2 18:05 Drug: Simethicone 120 mg Route: PO; tw2 18:47 Follow up: Response: No adverse reaction tw2 Intake: 18:47 IV: 500ml; Total: 500ml. tw2 Outcome: 17:54 Discharge ordered by . snw 21:05 Discharged to home via wheelchair, with family. tl2 21:05 Condition: stable 21:05 Discharge instructions given to patient, family, Instructed on discharge instructions, follow up and referral plans. 21:06 Patient left the ED. tl2 Signatures: Dispatcher [employer] EDUT Vikki Longoria, AZEEM B[employer]LE PACKING MACHINE CLEANER-Sheng Dominga Choudhary Melissa Enedelia Aviles RN RN aa5 Debbie Arora RN RN tw2 Josette Osman RN RN tl2 Michelle Hamilton [facility] Corrections: (The following items were deleted from the chart) 15:52 15:52 BP 119 / 52; Pulse 90bpm; Resp 18bpm; Spontaneous; Pulse Ox 97% RA; Temp 99.1F aa5 Oral; 102.06 kg Reported; Height 5 ft. 10 in. Reported; BMI: 32.2; aa5
--- NOTE | 2018-07-25 18:12 | RAD REPORT ---
EXAM DESCRIPTION: RAD - Abdomen Acute Series - 07/25/2018 5:47 pm CLINICAL HISTORY: Abdominal pain FINDINGS: The left base is hazy which may be secondary to overlying soft tissue or mild infiltrate/a telectasis Free air is not seen beneath the diaphragm Air is present within nondilated small and large bowel in a nonspecific fashion. Left hip arthroplasties been performed
[2018-07-25] MEDS ORDERED: SIMETHICONE 80 MG TAB ONE (18:13)
[2018-07-25 18:17] LABS: Blood Morphology Comment NOT SEEN (NOT SEEN); Platelet Estimate ADEQ
[2018-07-25 18:45] LABS: Urine Blood NEGATIVE (NEG); Urine Glucose NEGATIVE (NEG); Urine Protein NEGATIVE (NEG); Urine Specific Gravity 1.015 (1.005-1.030)
== END 2018-07-25 21:06 | disposition home or self-care (01) ==
LOC: ER 15:41
DX: J44.9 Chronic obstructive pulmonary disease, unspecified (principal); R94.4 Abnormal results of kidney function studies; R10.84 Generalized abdominal pain; I25.2 Old myocardial infarction; Z79.82 Long term (current) use of aspirin; Z88.8 Allergy status to other drugs, medicaments and biological substances; Z95.1 Presence of aortocoronary bypass graft
CPT/HCPCS: 85025; 80048; 36415; 81003; 74022; J2550

== ENCOUNTER 2018-08-11 12:03 | Observation (INO) | payer OTHER ==
--- OUTSIDE RECORDS SUMMARY | 2018-08-11 12:10 | XMS REPORT | Continuity of Care Document ---
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 Problem 08/06/2018 13 [facility] CHEST PAIN, Active [facility] UNSPECIFIED Medications Medication Details Route Status Patient Ordering Order Source Instructions Provider Date lisinopril 2.5 2.5 mg=1 tab, PO, Active mg oral tablet Daily, # 30 tab, 2016 [facility] 0 Refill(s) AMIODarone 200 200 mg=1 tab, PO, Active mg oral tablet BID, please start 2016 [facility] this regimen after 1 week of 400 mg PO BID for 1 week, # 60 tab, 0 Refill(s) Acetaminophen 2 tab, PO, Q6H, Active 300 MG / PRN Pain Score 2016 [facility] Codeine 4-6, X 5 day, # Phosphate 30 MG 40 tab, 0 Oral Tablet Refill(s) [Tylenol with Codeine #3] 200 ACTUAT 2 puff, Active Albuterol 0.09 INHALATION, QID, 2016 [facility] MG/ACTUAT PRN for wheezing, Metered Dose # 25 gm, 0 Inhaler Refill(s) [Proventil] Advair Diskus 1 puff, Active 250 mcg-50 mcg INHALATION, BID, 2016 [facility] inhalation # 60 puff, 0 powder Refill(s) torsemide 10 mg 10 mg=1 tab, PO, Active oral tablet Daily, # 30 tab, 2016 [facility] 0 Refill(s) metoprolol 25 25 mg=1 tab, PO, Active mg oral tablet, Daily, # 30 tab, 2016 [facility] extended 0 Refill(s) release clopidogrel 75 75 mg=1 tab, PO, Active mg oral tablet Daily, # 30 tab, 2016 [facility] 0 Refill(s) atorvastatin 40 40 mg=1 tab, PO, Active mg oral tablet Bedtime, # 30 2016 [facility] tab, 0 Refill(s) aspirin 81 mg 81 mg=1 tab, PO, Active tablet, enteric Daily, # 100 tab, 2017 [facility] 0 Refill(s) 12 HR 600 mg=1 tab, PO, Active Guaifenesin 600 Q12H, PRN 2017 [facility] Extended Congestion, X 7 Release Tablet day, # 14 tab, 0 [Mucinex] Refill(s) Amiodarone 400 mg, 2 tab, Inactive Route: PO, Drug 2016 [facility] form: TAB, BID, Dosing Weight 111.384, kg, Priority: NOW, Start date: 06/30/16 7:15:00 CDT, Stop date: 07/14/16 17:00:00 CDTNotes: (Same as: Cordarone) torsemide 10 mg, 1 tab, No Longer Route: PO, Drug Active 2016 [facility] form: TAB, Daily, Dosing Weight 111.384, kg, Start date: 06/29/16 9:00:00 CDT, Duration: 30 day, Stop date: 07/28/16 9:00:00 CDTNotes: (Same As: Demadex) Amiodarone 200 mg, 1 tab, No Longer Route: PO, Drug Active 2016 [facility] form: TAB, TID, Dosing Weight 110.469, kg, Priority: NOW, Start date: 06/28/16 9:06:00 CDT, Duration: 30 day, Stop date: 07/28/16 9:00:00 CDTNotes: (Same as: Cordarone) metoprolol 25 mg, 1 tab, No Longer extended Route: PO, Drug Active 2016 [facility] release form: ERTAB, Daily, Start date: 06/28/16 9:00:00 CDT, Duration: 30 day, Stop date: 07/27/16 9:00:00 CDTNotes: (Same as: Toprol XL) Do Not Crush atorvastatin 40 mg, 1 tab, No Longer Route: PO, Drug Active 2016 [facility] form: TAB, Bedtime, Dosing Weight 103.653, kg, Start date: 06/27/16 21:00:00 CDT, Duration: 30 day, Stop date: 07/26/16 21:00:00 CDTNotes: (Same as: Lipitor) chlorhexidine 1 pkt, Route: No Longer gluconate 40 BATHE, Q-M-W-F, Active 2016 [facility] MG/ML Medicated Drug form: SOLN, Liquid Soap Start date: 06/27/16 9:00:00 CDT, Duration: 30 day, Stop date: 07/25/16 9:00:00 CDTNotes: (Same As: Michael) Glucagon 1 mg, Route: IM, No Longer Drug form: Active 2016 [facility] PDR/INJ, PRN, Dosing Weight 103.653, kg, PRN Blood Glucose Results, Start date: 06/26/16 10:21:00 CDT, Duration: 30 day, Stop date: 07/26/16 10:20:00 CDT Dextrose 50% 25 gm, 50 mL, No Longer Syringe Route: IVP, Drug Active 2016 [facility] Form: INJ, Dosing Weight 103.653, kg, PRN, PRN Blood Glucose Results, Start date: 06/26/16 10:21:00 CDT, Duration: 30 day, Stop date: 07/26/16 10:20:00 CDT Insulin, 8 unit, 0.08 mL, No Longer Aspart, Human Route: SUB-Q, Active 2016 [facility] Drug form: SOLN, TID-Before Meals, Dosing [...] 2 mL, Inactive Route: IVP, Drug 2016 [facility] form: INJ, ONCE, Dosing Weight 103.653, kg, Priority: NOW, Start date: 06/26/16 7:30:00 CDT, Stop date: 06/26/16 7:30:00 CDTNotes: (Same as: Lasix) albumin human 12.5 gm, 250 mL, Inactive 5% intravenous 250 ml/hr, Route: 2016 [facility] solution IV, Drug Form: INJ, Dosing Weight 103.653, kg, ONCE, Start date: 06/26/16 7:30:00 CDT, Stop date: 06/26/16 7:30:00 CDTNotes: LOT#: Mfg: ___ WASTE: F/P - Red; E -Red (Same as: Albuminar) "blood product derivative" glucagon 1 mg, Route: INJ, No Longer Drug form: Active 2016 [facility] PDR/INJ, PRN, PRN Blood Glucose Results, Start date: 06/25/16 22:17:00 CDT, Duration: 30 day, Stop date: 07/25/16 22:16:00 CDT Dextrose 50% in 50 mL, Route: No Longer Water IV IVP, Start date: Active 2016 [facility] 06/25/16 22:17:00 CDT, Duration: 30 day, Stop date: 07/25/16 22:16:00 CDT, PRN Blood Glucose Results insulin aspart 10 unit, 0.1 mL, No Longer Route: SUB-Q, Active 2016 [facility] Drug form: SOLN, Sliding Scale, PRN [...] No Longer Route: PO, Drug Active 2016 [facility] form: TAB, Bedtime, Dosing Weight 103.653, kg, Start date: 06/25/16 21:00:00 CDT, Duration: 30 day, Stop date: 07/24/16 21:00:00 CDTNotes: (Same As: Lipitor) Lovenox 40 mg, 0.4 mL, No Longer Route: SUB-Q, Active 2016 [facility] Drug form: INJ, [id number], Dosing Weight 103.653, kg, Start date: 06/25/16 20:00:00 CDT, Duration: 30 day, Stop date: 07/24/16 20:00:00 CDTNotes: (Same as: Lovenox) Dilaudid 0.5 mg, 0.5 mL, Inactive Route: IVP, Drug 2016 [facility] form: INJ, ONCE, Dosing Weight 103.653, kg, Priority: STAT, Start date: 06/25/16 18:54:00 CDT, Stop date: 06/25/16 18:54:00 CDT pantoprazole 40 mg, 1 tab, Inactive Route: PO, Drug 2016 [facility] form: ECTAB, Daily, Dosing Weight 103.653, kg, Start date: 06/25/16 9:00:00 CDT, Duration: 30 day, Stop date: 07/24/16 9:00:00 CDTNotes: Tablet should not be chewed or crushed. (Same as: Protonix) Mupirocin 0.02 1 appl, Route: No Longer MG/MG Topical NASAL, BID, Drug Active 2016 [facility] Ointment form: OINT, Start date: 06/25/16 9:00:00 CDT, Duration: 5 day, Stop date: 06/29/16 17:00:00 CDT clopidogrel 75 mg, 1 tab, No Longer Route: PO, Drug Active 2016 [facility] form: TAB, Daily, Dosing Weight 102.926, kg, Start date: 06/25/16 9:00:00 CDT, Duration: 30 day, Stop date: 07/24/16 9:00:00 CDTNotes: (Same As: Plavix) Aspirin 325 MG 325 mg, Route: No Longer Enteric Coated PO, Drug form: Active 2016 [facility] Tablet ECTAB, Daily, Dosing Weight 102.926, kg, Start date: 06/25/16 9:00:00 CDT, Duration: 30 day, Stop date: 07/24/16 9:00:00 CDT heparin 5,000 unit, 1 mL, Inactive Route: SUB-Q, 2016 [facility] Drug form: INJ, Q8H, Dosing Weight 103.653, kg, Start date: 06/25/16 8:00:00 CDT, Duration: 30 day, Stop date: 07/25/16 0:00:00 CDTNotes: porcine heparin vancomycin 1.5 gm, 250 mL, Inactive Route: IVPB, Drug 2016 [facility] form: INJ, [id number], Start date: 06/25/16 1:30:00 CDT, Duration: 2 doses or times, Stop date: 06/25/16 13:30:00 CDTNotes: TIME CRITICAL MEDICATION Same as: Vancocin-NS (premixed) Infusion rate 2001 mg: infuse over 2.5 hours cefuroxime + 1.5 gm, Route: Inactive sodium chloride IVPB, [id number], 2016 [facility] 0.9% INJ 100 mL Dosing Weight 103.653, kg, Start date: 06/25/16 1:00:00 CDT, Duration: 3 doses or times, Stop date: 06/25/16 17:00:00 CDTNotes: (Same As: Kefurox, Zinacef) MEDICATION WASTE Product Size: 1500 mg Product Wasted: ___ mg Vancomycin 1,554.795 mg, Inactive Route: IVPB, Drug 2016 [facility] form: INJ, Q12H, Dosing Weight 103.653, kg, Time Critical Medication, Start date: 06/24/16 21:00:00 CDT, Duration: 2 doses or times, Stop date: 06/25/16 9:00:00 CDT chlorhexidine 15 ml, Route: No Longer gluconate 1.2 S&SPIT, Q12H, Active 2016 [facility] MG/ML Mouthwash Drug form: LIQ, Start date: 06/24/16 21:00:00 CDT, Duration: 2 week, Stop date: 07/08/16 9:00:00 CDTNotes: (Same As: Peridex) Aspirin 325 MG 325 mg, 1 tab, No Longer Oral Tablet Route: NG, Drug Active 2016 [facility] form: TAB, Daily, Dosing Weight 102.926, kg, Start date: 06/24/16 21:00:00 CDT, Duration: 30 day, Stop date: 07/24/16 9:00:00 CDTNotes: Take with food. EPINEPHrine 4 246 mL, Rate: No Longer mg + sodium Titrate, Route: Active 2016 [facility] chloride 0.9% IV, Dosing Weight INJ 246 mL 103.653 kg, Total Volume: 250, Start date: 06/24/16 18:38:00 CDT, Duration: 30 day, Stop date: 07/24/16 18:37:00 CDTNotes: (Same as: Adrenalin) Suremed - Injectable drug used as inhalation treatment. MEDICATION WASTE Product Size: 1 mg Product Wasted: ___ mg insulin aspart 14 unit, 0.14 mL, No Longer Route: SUB-Q, Active 2016 [facility] Drug form: SOLN, Sliding Scale, PRN [...] mL, No Longer Route: SUB-Q, Active 2016 [facility] Drug form: SOLN, Sliding Scale, PRN [...] Longer unit-NS 100mL Rate: Titrate, Active 2016 [facility] 100 unit Dosing Weight 103.653, kg, Route: IV, Total Volume: 100, Start Date: 06/24/16 18:35:00 CDT, Duration: 30 day, Stop date: 07/24/16 18:34:00 CDT, Replace Every: 24 hrNotes: Final Concentration 1unit/1ml WASTE: F/P - Black; E - Municipal Trash Bin insulin reg 100 100 unit, 100 mL, Inactive unit-NS 100mL Rate: Titrate, 2016 [facility] 100 unit Dosing Weight 103.653, kg, Route: IV, Total Volume: 100, Start Date: 06/24/16 18:34:00 CDT, Duration: 30 day, Stop date: 07/24/16 18:33:00 CDT, Replace Every: 24 hrNotes: Final Concentration 1unit/1ml WASTE: F/P - Black; E - Municipal Trash Bin albuterol 2.49 mg, 3 mL, No Longer Route: NEB, Drug Active 2016 [facility] form: SOLN, PRN, PRN Respiratory Protocol, Start date: 06/24/16 18:16:00 CDT, Stop date: 07/24/16 18:15:00 CDTNotes: SEE RT DOCUMENTATION (Same as: Proventil) Fentanyl 600 microgram, 30 No Longer mL, Route: IV, Active 2016 [facility] PIER WORKER Dose: 10 mcg, PIER WORKER Lockout: 10 minutes, Continuous Basal Rate: 0 mg, 4 Hour Limit (In MCG): 240, Drug Form: INJ, Continuous, Start date: 06/24/16 18:00:00 CDT, Duration: 30 day, Stop date: 07/24/16 17:59:00 CDTNotes: Concentration is 20 micrograms/ml metoprolol 12.5 mg, 0.5 tab, No Longer tartrate Route: PO, Drug Active 2016 [facility] form: TAB, Q6H, Dosing Weight 102.926, kg, Start date: 06/24/16 18:00:00 CDT, Duration: 30 day, Stop date: 07/24/16 12:00:00 CDTNotes: (Same as: Lopressor) Cefuroxime 1.5 gm, Route: Inactive IVPB, ABXQ8H, 2016 [facility] Dosing Weight 103.653, kg, Start date: 06/24/16 18:00:00 CDT, Duration: 3 doses or times, Stop date: 06/25/16 10:00:00 CDTNotes: (Same As: Kefurox, Zinacef) MEDICATION WASTE Product Size: 1500 mg Product Wasted: ___ mg PHOS-NaK 2 pkt, Route: PO, No Longer Drug Form: Active 2016 [facility] PDR/REC, Dosing Weight 103.653, kg, PRN, PRN Abnormal Lab Result, FOR ICU USE ONLY, Start date: 06/24/16 17:44:00 CDT, Duration: 30 day, Stop date: 07/24/16 17:43:00 CDTNotes: (Same as: Phos-NaK) Each 1.5 gm pkt has 250mg phosphorous. Mix w/2.5oz water and stir. potassium 45 mmol, 15 mL, No Longer phosphate + Route: IVPB, PRN, Active 2016 [facility] sodium chloride Dosing Weight 0.9% INJ 250 mL 103.653, kg, PRN Abnormal Lab Result, Start date: 06/24/16 17:44:00 CDT, Duration: 30 day, Stop date: 07/24/16 17:43:00 CDT, FOR ICU USE ONLYNotes: (Same as: K Phosphate.) 1 mMol phoshate has 1.47 mEq potassium Infuse over 4 hours Calcium 1 gm, 50 mL, No Longer Gluconate Route: IVPB, Drug Active 2016 [facility] form: INJ, PRN, Dosing Weight 103.653, kg, PRN Abnormal Lab Result, Start date: 06/24/16 17:44:00 CDT, Duration: 30 day, Stop date: 07/24/16 17:43:00 CDT, FOR ICU USE ONLYNotes: WASTE: F/P - Sink; E - Municipal Trash Bin Magnesium Oxide 800 mg, 2 tab, No Longer Route: PO, Drug Active 2016 [facility] form: TAB, PRN, Dosing Weight 103.653, kg, PRN Abnormal Lab Result, FOR ICU USE ONLY, Start date: 06/24/16 17:44:00 CDT, Duration: 30 day, Stop date: 07/24/16 17:43:00 CDTNotes: (Same as: Mag-Ox 400) Magnesium oxide 125qc=245ap elemental magnesium Dose=____mg magnesium oxide (___mg elemental magnesium) Magnesium 2 gm, 50 mL, No Longer Sulfate Route: IVPB, Drug Active 2016 [facility] form: INJ, PRN, Dosing Weight 103.653, kg, PRN Abnormal Lab Result, Start date: 06/24/16 17:44:00 CDT, Duration: 30 day, Stop date: 07/24/16 17:43:00 CDT, FOR ICU USE ONLYNotes: WASTE: F/P - Sink; E - Municipal Trash Bin potassium 20 mEq, 15 mL, No Longer chloride Route: NJ, Drug Active 2016 [facility] form: LIQ, PRN, Dosing Weight 103.653, kg, PRN Abnormal Lab Result, Start date: 06/24/16 17:44:00 CDT, Duration: 30 day, Stop date: 07/24/16 17:43:00 CDT, FOR ICU USE ONLYNotes: (Same as: Potassium Chloride) Calcium 1,000 mg, 2 tab, No Longer Carbonate 500 Route: CHEW, Drug Active 2016 [facility] Chewable form: CHEWTAB, Tablet PRN, Dosing Weight 103.653, kg, PRN Abnormal Lab Result, FOR ICU USE ONLY, Start date: 06/24/16 17:44:00 CDT, Duration: 30 day, Stop date: 07/24/16 17:43:00 CDTNotes: (Same As: Tums) Calcium Carbonate 500 iz=756 mg elemental calcium Dose= mg calcium carbonate ( mg elemental calcium) Insulin, 3 unit, 0.03 mL, Inactive Aspart, Human Route: SUB-Q, 2016 [facility] Drug form: SOLN, TID-Before Meals, Dosing [...] phosphate + Route: IVPB, PRN, Active 2016 [facility] sodium chloride Dosing Weight 0.9% INJ 250 mL 103.653, kg, PRN Abnormal Lab Result, Start date: 06/24/16 17:44:00 CDT, Duration: 30 day, Stop date: 07/24/16 17:43:00 CDT, FOR ICU USE ONLY potassium 15 mmol, 250 mL, No Longer phosphate Route: IVPB, Drug Active 2016 [facility] form: INJ, PRN, Dosing Weight 103.653, kg, PRN Abnormal Lab Result, Start date: 06/24/16 17:44:00 CDT, Duration: 30 day, Stop date: 07/24/16 17:43:00 CDT, FOR ICU USE ONLYNotes: (Same as: K Phosphate) sodium 15 mmol, 250 mL, No Longer phosphate Route: IVPB, Drug Active 2016 [facility] form: INJ, PRN, Dosing Weight 103.653, kg, PRN Abnormal Lab Result, Start date: 06/24/16 17:44:00 CDT, Duration: 30 day, Stop date: 07/24/16 17:43:00 CDT, FOR ICU USE ONLY Naloxone 0.04 mg, 0.1 mL, No Longer Route: IVP, Drug Active 2016 [facility] form: INJ, Q2MIN, Dosing Weight 103.653, kg, PRN Narcotic Reversal, Start date: 06/24/16 17:44:00 CDT, Duration: 30 day, Stop date: 07/24/16 17:43:00 CDTNotes: Same as Narcan Saline Flush 10 ml, Route: No Longer 0.9% IVP, Drug Form: Active 2016 [facility] INJ, Dosing Weight 103.653, kg, PRN, PRN Line Flush, Start date: 06/24/16 17:44:00 CDT, Duration: 30 day, Stop date: 07/24/16 17:43:00 CDTNotes: (Same as: BD Posiflush) Dulcolax 10 mg, 1 supp, No Longer Laxative Route: ID, Drug Active 2016 [facility] form: SUPP, Daily, Dosing Weight 102.926, kg, PRN Constipation, Start date: 06/24/16 17:44:00 CDT, Duration: 30 day, Stop date: 07/24/16 17:43:00 CDTNotes: (Same As: Dulcolax, Bisco-Lax) Lactulose 667 20 gm, 30 mL, No Longer MG/ML Oral Route: PO, Drug Active 2016 [facility] Solution form: SYRP, Daily, Dosing Weight 102.926, kg, PRN as needed for constipation, Start date: 06/24/16 17:44:00 CDT, Duration: 30 day, Stop date: 07/24/16 17:43:00 CDTNotes: (Same as:Chronulac) albumin human 12.5 gm, 250 mL, No Longer 5% intravenous 500 ml/hr, Route: Active 2016 [facility] solution IVPB, Drug Form: INJ, Dosing Weight 102.926, kg, ONCE, PRN Hypotension, Start date: 06/24/16 17:44:00 CDTNotes: LOT#: Mfg: ___ WASTE: F/P - Red; E -Red (Same as: Albuminar) "blood product derivative" Acetaminophen 1 tab, Route: PO, No Longer 300 MG / Drug Form: TAB, Active 2016 [facility] Codeine Dosing Weight Phosphate 30 MG 102.926, kg, Q6H, Oral Tablet PRN Pain Score [Tylenol with 1-3, Start date: Codeine #3] 06/24/16 17:44:00 CDT, Duration: 30 day, Stop date: 07/24/16 17:43:00 CDTNotes: Do not exceed 4gm/day of acetaminophen. (Same as: Tylenol with Codeine # 3) Zofran 4 mg, 2 mL, No Longer Route: IVP, Drug Active 2016 [facility] form: INJ, Q8H, Dosing Weight 102.926, kg, PRN Nausea, Start date: 06/24/16 17:44:00 CDT, Duration: 30 day, Stop date: 07/24/16 17:43:00 CDTNotes: (Same as: Zofran) MEDICATION WASTE Product Size: 4 mg Product Wasted: ___ mg Xopenex 1.25 mg, Route: Inactive NEB, PRN, Dosing 2016 [facility] Weight 102.926, kg, PRN Respiratory Protocol, Start date: 06/24/16 17:44:00 CDT, Duration: 30 day, Stop date: 07/24/16 17:43:00 CDT Morphine 8 mg, 2 mL, No Longer Route: IM, Drug Active 2016 [facility] form: INJ, Q3H, Dosing Weight 102.926, kg, PRN Pain Score 7-10, Start date: 06/24/16 17:44:00 CDT, Duration: 30 day, Stop date: 07/24/16 17:43:00 CDTNotes: (Same as:MORPhine Sulfate) Albuterol 0.833 3 ml, Route: NEB, No Longer MG/ML / Drug Form: SOLN, Active 2016 [facility] Ipratropium Dosing Weight [place] 0.167 103.653, kg, PRN, MG/ML Inhalant PRN Respiratory Solution Protocol, Start date: 06/24/16 17:44:00 CDT, Duration: 30 day, Stop date: 07/24/16 17:43:00 CDTNotes: (Same as: Duoneb) Glucagon 1 mg, Route: IM, No Longer Drug form: Active 2016 [facility] PDR/INJ, PRN, Dosing Weight 103.653, kg, PRN Blood Glucose Results, Start date: 06/24/16 17:44:00 CDT, Duration: 30 day, Stop date: 07/24/16 17:43:00 CDT Nitroglycerin 0.4 mg, 1 tab, No Longer Route: SL, Drug Active 2016 [facility] form: TAB, Q5Min, Dosing Weight 103.653, kg, PRN Chest Pain, Start date: 06/24/16 17:44:00 CDT, Duration: 3 doses or times, Stop date: Limited # of timesNotes: (Same as:Nitroquick, Nitrostat) "Do Not Crush" Sublingual tablet Docusate 100 mg, 1 cap, No Longer Route: PO, Drug Active 2016 [facility] form: CAP, BID, Dosing Weight 103.653, kg, PRN Constipation, Start date: 06/24/16 17:44:00 CDT, Duration: 30 day, Stop date: 07/24/16 17:43:00 CDTNotes: (Same as: Colace) (Do Not Crush) Ondansetron 4 mg, 2 mL, Inactive Route: IVP, Drug 2016 [facility] form: INJ, Q8H, Dosing Weight 103.653, kg, PRN Nausea & Vomiting, Start date: 06/24/16 17:44:00 CDT, Duration: 30 day, Stop date: 07/24/16 17:43:00 CDTNotes: (Same as: Jessica) MEDICATION WASTE Product Size: 4 mg Product Wasted: ___ mg Dextrose 50% 25 gm, 50 mL, No Longer Syringe Route: IVP, Drug Active 2016 [facility] Form: INJ, Dosing Weight 103.653, kg, PRN, PRN Blood Glucose Results, Start date: 06/24/16 17:44:00 CDT, Duration: 30 day, Stop date: 07/24/16 17:43:00 CDT Acetaminophen 650 mg, 2 tab, No Longer Route: PO, Drug Active 2016 [facility] form: TAB, Q4H, Dosing Weight 103.653, kg, PRN Pain 1-3/Temp > 100.4 F, Start date: 06/24/16 17:44:00 CDT, Duration: 30 day, Stop date: 07/24/16 17:43:00 CDTNotes: Do not exceed 4 gm/day. (Same as: Tylenol) vasopressin Route: IV, Drug Inactive 06/24/ MH (ANES) form: INJ, ONCE, 2016 [facility] Stop date: 06/24/16 17:40:00 CDT ondansetron Route: IV, Drug Inactive 06/24/ MH (ANES) form: INJ, ONCE, 2016 Stop date: 06/24/16 17:23:00 CDT protamine Route: IV, Drug Inactive 06/24/ MH (ANES) form: INJ, ONCE, 2016 [facility] Stop date: 06/24/16 17:03:00 CDT calcium Route: IV, Drug Inactive MH chloride (ANES) form: INJ, ONCE, 2016 [facility] Stop date: 06/24/16 16:48:00 CDT nitroglycerin Route: IV, Drug Inactive 06/24/ MH (ANES) form: INJ, ONCE, 2016 Stop date: 06/24/16 15:17:00 CDT heparin (ANES) Route: IV, Drug Inactive 06/24/ MH form: INJ, ONCE, 2016 [facility] Stop date: 06/24/16 15:07:00 CDT fentaNYL (ANES) Route: IV, Drug Inactive 06/24/ MH form: INJ, ONCE, 2016 [facility] Stop date: 06/24/16 14:31:00 CDT ePHEDrine Route: IV, Drug Inactive 06/24/ MH (ANES) form: INJ, ONCE, 2016 Stop date: 06/24/16 14:11:00 CDT cefuroxime Route: IV, Drug Inactive 06/24/ MH (ANES) form: INJ, ONCE, 2016 Stop date: 06/24/16 14:11:00 CDT rocuronium Route: IV, Drug Inactive 06/24/ MH (ANES) form: INJ, ONCE, 2016 Stop date: 06/24/16 14:06:00 CDT propofol (ANES) Route: IV, Drug Inactive 06/24/ MH form: INJ, ONCE, 2016 Stop date: 06/24/16 14:06:00 CDT Amicar (ANES) Route: IV, Drug Inactive MH (ANES) + form: INJ, Dosing 2016 [facility] Weight 103.7, kg, Start date: 06/24/16 13:35:00 CDT, Stop date: 06/24/16 14:35:00 CDT vancomycin Route: IV, Drug Inactive MH (ANES) (ANES) form: INJ, Start 2016 [facility] date: 06/24/16 13:29:00 CDT, Stop date: 06/24/16 14:29:00 CDT midazolam Route: IV, Drug Inactive (ANES) form: SOLN, ONCE, 2016 [facility] Stop date: 06/24/16 13:11:00 CDT morphine Route: IV, Drug Inactive Sulfate (ANES) form: INJ, ONCE, 2016 [facility] Stop date: 06/24/16 13:11:00 CDT Isolyte S (PH Route: IV, Total Inactive 7.4) 1000 mL Volume: 1,000, 2016 [facility] (ANES) Start date: 06/24/16 12:39:00 CDT, Stop date: 06/24/16 13:39:00 CDT sodium chloride 1,000 mL, Rate: No Longer MH 0.9% 1000 ml 125 ml/hr, Infuse Active 2016 [facility] INJ 1,000 mL over: 8 hr, Route: IV, Dosing Weight 99.563 kg, Total Volume: 1,000, Start date: 06/22/16 7:35:00 CDT, Duration: 30 day, Stop date: 07/22/16 7:34:00 CDT Sodium Chloride 250 mL, 250 Inactive MH 0.154 MEQ/ML ml/hr, Infuse 2017 [facility] Injectable Over: 1 hr, Solution Route: IV, 250, Drug form: INJ, ONCE, Priority: STAT, Dosing Weight 99.563 kg, Start date: 06/22/16 7:34:00 CDT, Duration: 1 doses or times, Stop date: 06/22/16 7:34:00 CDT sodium chloride 1,000 mL, Rate: Inactive MH 0.9% 1000 ml 125 ml/hr, Infuse 2017 [facility] INJ 1,000 mL over: 8 hr, Route: IV, Dosing Weight 99.563 kg, Total Volume: 1,000, Start date: 06/22/16 7:19:00 CDT, Duration: 30 day, Stop date: 07/22/16 7:18:00 CDT Lopressor 50 mg, 1 tab, No Longer Route: PO, Drug Active 2016 [facility] form: TAB, BID, Dosing Weight 102.926, kg, Start date: 06/19/16 18:00:00 CDT, Duration: 30 day, Stop date: 07/19/16 17:00:00 CDTNotes: (Same as: Lopressor) Lopressor 50 mg, 1 tab, Inactive Route: PO, Drug 2016 [facility] form: TAB, Q8Hnow, Dosing Weight 102.926, kg, Start date: 06/19/16 17:00:00 CDT, Duration: 30 day, Stop date: 07/19/16 9:00:00 CDTNotes: (Same as: Lopressor) Levemir 10 unit, 0.1 mL, No Longer Route: SUB-Q, Active 2016 [facility] Drug form: INJ, Bedtime, Dosing Weight 102.926, kg, Start date: 06/17/16 21:00:00 CDT, Duration: 30 day, Stop date: 07/16/16 21:00:00 CDTNotes: Same as Levemir Do not hold insulin without contacting prescriber WASTE: F/P - Black; E - Municipal Trash Bin "single patient use only" Saline Flush 10 ml, Route: No Longer 0.9% IVP, Drug Form: Active 2016 [facility] INJ, Dosing Weight 102.926, kg, Q12H, Start date: 06/17/16 21:00:00 CDT, Duration: 30 day, Stop date: 07/17/16 9:00:00 CDTNotes: (Same as: BD Posiflush) chlorhexidine 15 ml, Route: No Longer gluconate 1.2 S&SPIT, BID, Drug Active 2016 [facility] MG/ML Mouthwash form: LIQ, Start date: 06/17/16 20:00:00 CDT, Duration: 30 day, Stop date: 07/17/16 17:00:00 CDTNotes: (Same As: Peridex) Cefazolin 2 gm, 100 mL, No Longer Route: IVPB, Drug Active 2016 [facility] form: INJ, ONCALL, Dosing Weight 102.926, kg, Start date: 06/17/16 19:00:00 CDT, Duration: 30 day, Stop date: 07/17/16 18:59:00 CDTNotes: Same as: Ancef Mupirocin 0.02 1 appl, Route: No Longer MG/MG Topical NASAL, ONCALL, Active 2016 [facility] Ointment Drug form: OINT, Start date: 06/17/16 19:00:00 CDT, Duration: 30 day, Stop date: 07/17/16 18:59:00 CDT sodium chloride 250 mL, Rate: On No Longer 0.9% INJ 250 mL call for use with Active 2016 [facility] blood product administration, Dosing Weight 102.926, kg, Route: IV, Total Volume: 250, Start Date: 06/17/16 18:54:00 CDT, Duration: 30 day, Stop date: 07/17/16 18:53:00 CDT, Replace Every: 24 hr Saline Flush 10 ml, Route: No Longer 0.9% IVP, Drug Form: Active 2016 [facility] INJ, Dosing Weight 102.926, kg, PRN, PRN Line Flush, Start date: 06/17/16 18:54:00 CDT, Duration: 30 day, Stop date: 07/17/16 18:53:00 CDTNotes: (Same as: BD Posiflush) metoprolol 12.5 mg, Route: Inactive tartrate PO, Drug form: 2016 [facility] TAB, Q12H, Dosing Weight 102.926, kg, Priority: NOW, Start date: 06/17/16 18:54:00 CDT, Duration: 30 day, Stop date: 07/17/16 9:00:00 CDT Nitroglycerin 1 inch, Route: No Longer 0.02 MG/MG TOP, Drug Form: Active 2016 [facility] Topical OINT, Dosing Ointment Weight 102.926, kg, Q6H, Start date: 06/17/16 12:00:00 CDT, Duration: 30 day, Stop date: 07/17/16 6:00:00 CDTNotes: 1 gram is approximately 1 inch of nitroglycerin ointment (20 mg NTG per gram) (Same as:Nitro-Bid) Enoxaparin 100 mg, 1 mL, No Longer Route: SUB-Q, Active 2016 [facility] Drug form: INJ, [id number], Dosing Weight 102.926, kg, Start date: 06/17/16 9:00:00 CDT, Duration: 30 day, Stop date: 07/16/16 21:00:00 CDTNotes: Nurse to ensure documentation of patient education per anticoagulation policy. (Same as: Lovenox) Albuterol 0.833 3 mL, Route: NEB, No Longer MG/ML / Drug Form: SOLN, Active 2016 [facility] Ipratropium Dosing Weight [place] 0.167 102.926, kg, MG/ML Inhalant RQ6H, Start date: Solution 06/16/16 20:00:00 [DuoNeb] CDT, Duration: 30 day, Stop date: 07/16/16 14:00:00 CDTNotes: (Same as: Duoneb) Budesonide 0.25 0.5 mg, 2 mL, No Longer MG/ML Inhalant Route: NEB, Drug Active 2016 [facility] Solution form: SUSP, [Pulmicort] RQ12H, Dosing Weight 102.926, kg, Start date: 06/16/16 18:32:00 CDT, Duration: 30 day, Stop date: 07/16/16 16:00:00 CDTNotes: (Same As: Pulmicort) Solu-Medrol 80 mg, 1.28 mL, Inactive Route: IVP, Drug 2016 [facility] form: INJ, ONCE, Dosing Weight 102.926, kg, Start date: 06/16/16 18:12:00 CDT, Stop date: 06/16/16 18:12:00 CDTNotes: (Same as:Solu-MEDROL, A-Methapred) Lovenox 100 mg, 1 mL, Inactive Route: SUB-Q, 2016 [facility] Drug form: INJ, ONCE, Dosing Weight 102.926, kg, Start date: 06/16/16 18:00:00 CDT, Stop date: 06/16/16 18:00:00 CDTNotes: Nurse to ensure documentation of patient education per anticoagulation policy. (Same as: Lovenox) Sodium Chloride 250 mL, 250 No Longer 0.154 MEQ/ML ml/hr, Infuse Active 2016 [facility] Injectable Over: 1 hr, Solution Route: IV, 250, Drug form: INJ, ONCALL, Priority: Routine, Dosing Weight 102.926 kg, Start date: 06/16/16 17:00:00 CDT, Duration: 1 doses or times Sodium Chloride 750 mL, Rate: 75 Inactive 0.154 MEQ/ML ml/hr, Infuse 2016 [facility] Injectable over: 10 hr, Solution Route: IV, Dosing Weight 102.926 kg, Total Volume: 750, Start date: 06/16/16 16:15:00 CDT, Stop date: 06/17/16 16:14:00 CDT acetaminophen-c 1 tab, Route: PO, No Longer odeine #3 Drug Form: TAB, Active 2016 [facility] Dosing Weight 102.926, kg, Q4H, PRN Pain Score 4-6, Start date: 06/16/16 16:11:00 CDT, Duration: 30 day, Stop date: 07/16/16 16:10:00 CDTNotes: Do not exceed 4gm/day of acetaminophen. (Same as: Tylenol with Codeine # 3) Acetaminophen 650 mg, 2 tab, No Longer Route: PO, Drug Active 2016 [facility] form: TAB, Q4H, Dosing Weight 102.926, kg, PRN Pain Score 7-10, Start date: 06/16/16 16:11:00 CDT, Duration: 30 day, Stop date: 07/16/16 16:10:00 CDTNotes: Do not exceed 4 gm/day. (Same as: Tylenol) Sodium Chloride 500 mL, Rate: 150 Inactive 0.154 MEQ/ML ml/hr, Infuse 2016 [facility] Injectable over: 3.3 hr, Solution Route: IV, Dosing Weight 102.926 kg, Total Volume: 500, Start date: 06/16/16 16:11:00 CDT, Stop date: 06/16/16 20:10:00 CDT Sodium Chloride 250 mL, Route: No Longer 0.9% IV IVPB, Start date: Active 2016 [facility] 06/16/16 15:49:00 CDT, Duration: 30 day, Stop date: 07/16/16 15:48:00 CDT, PRN Line Flush Dextrose 50% 25 gm, 50 mL, No Longer Syringe Route: IVP, Drug Active 2016 [facility] Form: INJ, Dosing Weight 102.926, kg, PRN, PRN Blood Glucose Results, Start date: 06/16/16 15:45:00 CDT, Duration: 30 day, Stop date: 07/16/16 15:44:00 CDT Insulin, 5 unit, 0.05 mL, No Longer Aspart, Human Route: SUB-Q, Active 2016 [facility] Drug form: SOLN, TID-Before Meals, Dosing [...] IM, No Longer Drug form: Active 2016 [facility] PDR/INJ, PRN, Dosing Weight 102.926, kg, PRN Blood Glucose Results, Start date: 06/16/16 15:45:00 CDT, Duration: 30 day, Stop date: 07/16/16 15:44:00 CDT Sodium Chloride 1,000 mL, Rate: Inactive 0.154 MEQ/ML 100 ml/hr, Infuse 2016 [facility] Injectable over: 10 hr, Solution Route: IV, Dosing Weight 102.926 kg, Total Volume: 1,000, Start date: 06/16/16 9:19:00 CDT, Duration: 30 day, Stop date: 07/16/16 9:18:00 CDT aspirin 81 mg 81 mg, 1 tab, No Longer tablet, enteric Route: PO, Drug Active 2016 [facility] coated form: ECTAB, Daily, Dosing Weight 102.926, kg, Start date: 06/16/16 9:00:00 CDT, Duration: 30 day, Stop date: 07/15/16 9:00:00 CDTNotes: Do not crush or chew. (Same As: Ecotrin) Nitroglycerin 0.5 inch, Route: Inactive 0.02 MG/MG TOP, Drug Form: 2016 [facility] Topical OINT, Dosing Ointment Weight 102.926, kg, TID, Start date: 06/16/16 6:00:00 CDT, Duration: 30 day, Stop date: 07/15/16 18:00:00 CDTNotes: 1 gram is approximately 1 inch of nitroglycerin ointment (20 mg NTG per gram) (Same as:Nitro-Bid) metoprolol 50 mg, 1 tab, No Longer tartrate Route: PO, Drug Active 2016 [facility] form: TAB, Q8H, Dosing Weight 102.926, kg, Start date: 06/16/16 0:00:00 CDT, Duration: 30 day, Stop date: 07/15/16 16:00:00 CDTNotes: (Same as: Lopressor) Sodium Chloride 250 mL, 250 Inactive 0.154 MEQ/ML ml/hr, Infuse 2016 [facility] Injectable Over: 1 hr, Solution Route: IV, 250, Drug form: INJ, ONCALL, Priority: Routine, Dosing Weight 102.926 kg, Start date: 06/15/16 22:00:00 CDT, Duration: 1 doses or times Sodium Chloride 750 mL, Rate: 75 No Longer 0.154 MEQ/ML ml/hr, Infuse Active 2016 [facility] Injectable over: 10 hr, Solution Route: IV, Dosing Weight 102.926 kg, Total Volume: 750, Start date: 06/15/16 21:02:00 CDT, Duration: 24 hr, Stop date: 06/16/16 21:01:00 CDT Saline Flush 10 ml, Route: No Longer 0.9% IVP, Drug Form: Active 2016 [facility] INJ, Dosing Weight 102.926, kg, Q12H, Start date: 06/15/16 21:00:00 CDT, Duration: 30 day, Stop date: 07/15/16 9:00:00 CDTNotes: (Same as: BD Posiflush) atorvastatin 40 mg, 1 tab, No Longer Route: PO, Drug Active 2016 [facility] form: TAB, Bedtime, Dosing Weight 102.926, kg, Start date: 06/15/16 21:00:00 CDT, Duration: 30 day, Stop date: 07/14/16 21:00:00 CDTNotes: (Same as: Lipitor) metoprolol 25 mg, Route: PO, Inactive tartrate Drug form: TAB, 2016 [facility] Q12H, Dosing Weight 102.926, kg, Start date: 06/15/16 21:00:00 CDT, Duration: 30 day, Stop date: 07/15/16 9:00:00 CDT Enoxaparin 100 mg, 1 mL, No Longer Route: SUB-Q, Active 2016 [facility] Drug form: INJ, [id number], Dosing Weight 102.926, kg, Start date: 06/15/16 19:00:00 CDT, Duration: 30 day, Stop date: 07/15/16 7:00:00 CDTNotes: Nurse to ensure documentation of patient education per anticoagulation policy. (Same as: Lovenox) Albuterol 0.833 3 ml, Route: NEB, No Longer MG/ML / Drug Form: SOLN, Active 2016 [facility] Ipratropium Dosing Weight [place] 0.167 102.926, kg, PRN, MG/ML Inhalant PRN Respiratory Solution Protocol, Start [DuoNeb] date: 06/15/16 13:56:00 CDT, Duration: 30 day, Stop date: 07/15/16 13:55:00 CDTNotes: (Same as: Duoneb) Saline Flush 10 ml, Route: No Longer 0.9% IVP, Drug Form: Active 2016 [facility] INJ, Dosing Weight 102.926, kg, PRN, PRN Line Flush, Start date: 06/15/16 13:52:00 CDT, Duration: 30 day, Stop date: 07/15/16 13:51:00 CDTNotes: (Same as: BD Posiflush) Labetalol 20 mg, 4 mL, No Longer Route: IVP, Drug Active 2016 [facility] form: INJ, Q4H, Dosing Weight 102.926, kg, PRN Hypertension, Start date: 06/15/16 13:52:00 CDT, Duration: 30 day, Stop date: 07/15/16 13:51:00 CDT, for SBP>180 or DBP>110, hold if HRNotes: (Same as: Normodyne, Trandate) Push over 2 minutes Give bolus over 2-3 minutes. Trazodone 50 mg, 1 tab, No Longer Hydrochloride Route: PO, Drug Active 2016 [facility] 50 MG Oral form: TAB, Tablet Bedtime, Dosing Weight 102.926, kg, PRN Insomnia, Start date: 06/15/16 13:52:00 CDT, Duration: 30 day, Stop date: 07/15/16 13:51:00 CDTNotes: (Same As: Desyrel) Miralax 17 gm, 1 pkt, No Longer Route: PO, Drug Active 2016 [facility] form: PWDR, Daily, Dosing Weight 102.926, kg, PRN Constipation, Start date: 06/15/16 13:52:00 CDT, Duration: 30 day, Stop date: 07/15/16 13:51:00 CDTNotes: Dissolve in 8 oz of water or juice. (Same as: Miralax) Nitroglycerin 0.4 mg, 1 tab, No Longer Route: SL, Drug Active 2016 [facility] form: TAB, Q5Min, Dosing Weight 102.926, kg, PRN Chest Pain, Start date: 06/15/16 13:52:00 CDT, Duration: 3 doses or times, Stop date: Limited # of timesNotes: (Same as:Nitroquick, Nitrostat) "Do Not Crush" Sublingual tablet Morphine 1 mg, 0.5 mL, No Longer Route: IVP, Drug Active 2016 [facility] form: INJ, Q2H, Dosing Weight 102.926, kg, PRN Chest Pain, Start date: 06/15/16 13:52:00 CDT, Duration: 2 doses or times, Stop date: Limited # of timesNotes: (Same as:MORPhine Sulfate) Ondansetron 4 mg, 1 tab, No Longer Route: PO, Drug Active 2016 [facility] form: TAB, Q8H, Dosing Weight 102.926, kg, PRN Nausea & Vomiting, Start date: 06/15/16 13:52:00 CDT, Duration: 30 day, Stop date: 07/15/16 13:51:00 CDTNotes: (Same as: Zofran) Allergies, Adverse Reactions, Alerts Substance Category Reaction Severity Reaction Status Date Comments Source type Reported Betadine Assertion Drug Active allergy Medical Group Immunizations Immunization Date Site Status Last Updated Comments Source Given pneumococcal Right completed Ashvin 13-valent vaccine 7 deltoid [facility] Results Order Name Results Value Reference Date [...] is not recommended in the following populations: [facility] 3m2 Individuals with unstable creatinine concentrations, [...] Lvl 104 mg/dL 70 - 99 06/30 [facility] CHEM PANEL Potassium 4.0 meq/L 3.5 - 5.1 06/30 Lvl [facility] CHEM PANEL Sodium Lvl 140 meq/L 135 - 145 06/30 [facility] CHEM PANEL Creatinine 1.10 mg/dL 0.50 - 06/30 Lvl 1.40 /2016 [facility] CHEM PANEL BUN 21 mg/dL 7 - 22 06/30 [facility] CHEM PANEL AGAP 13.0 meq/L 10.0 - 04/ MH 20.0 /2016 [facility] CHEM PANEL CO2 27 meq/L 24 - 32 06/30 [facility] CHEM PANEL Calcium Lvl 8.2 mg/dL 8.5 - 10.5 06/30 [facility] CHEM PANEL Chloride Lvl 104 meq/L 95 - 109 06/30 [facility] Chest Chest 1view Clinical Indication:65 years Male with Tube placement/ removal/reposition 06/30 - 1view DX DX /2016 - [facility] Comparison: Chest x-ray of 06/27/2016 Read [...] mg/dL 1.8 - 2.4 06/29 Lvl /2016 [facility] ELECTROLYT AGAP 15.4 meq/L 10.0 - 06/29 ES 20.0 [facility] ELECTROLYT eGFR 69 06/29 Result Comment: [...] is not recommended in the following populations: [address] Individuals with unstable creatinine concentrations, including patients [...] Lvl 110 mg/dL 70 - 99 06/29 [facility] ELECTROLYT BUN 26 mg/dL 7 - 22 06/29 [facility] ELECTROLYT Chloride Lvl 105 meq/L 95 - 109 06/29 [facility] ELECTROLYT Creatinine 1.10 mg/dL 0.50 - 06/29 [facility] Lvl 1.40 /2016 [facility] ELECTROLYT Sodium Lvl 137 meq/L 135 - 145 06/29 [facility] ELECTROLYT Potassium 4.4 meq/L 3.5 - 5.1 06/29 [facility] ELECTROLYT CO2 21 meq/L 24 - 32 06/29 [facility] ELECTROLYT Calcium Lvl 8.1 mg/dL 8.5 - 10.5 06/29 [facility] HEMATOLOGY Basophils 0.3 % 0.0 - 1.0 06/29 [facility] HEMATOLOGY Segs-Bands # 9.5 K/CMM 1.5 - 8.1 06/29 [facility] HEMATOLOGY Lymphocytes 1.2 K/CMM 1.0 - 5.5 06/29 [facility] HEMATOLOGY Monocytes # 1.4 K/CMM 0.0 - 0.8 06/29 [facility] HEMATOLOGY Basophils # 0.0 K/CMM 0.0 - 0.2 06/29 [facility] HEMATOLOGY Eosinophils 0.2 K/CMM 0.0 - 0.5 06/29 [facility] HEMATOLOGY Polychrom Moderate None Seen 06/29 [facility] *ABN* (06/29/16 5:06 AM) HEMATOLOGY Plt Morph Normal 06/29 [facility] (06/29/16 5:06 AM) HEMATOLOGY Lymphocytes 9.7 % 20.0 - 06/29 40.0 [facility] HEMATOLOGY Segs 77.0 % 45.0 - 06/29 75.0 [facility] HEMATOLOGY Eosinophils 1.6 % 0.0 - 4.0 06/29 [facility] HEMATOLOGY Monocytes 11.4 % 2.0 - 12.0 06/29 [facility] HEMATOLOGY MCH 28.6 pg 27.0 - 06/29 MH 31.0 /2016 [facility] Platelet 163 K/CMM 133 - 450 06/29 [facility] HEMATOLOGY RDW 14.2 % 11.5 - 06/29 MH 14. [facility] HEMATOLOGY MCHC 33.9 g/dL 32.0 - 06/29 MH 36.0 /2016 [facility] MPV 8.3 fL 7.4 - 10.4 06/29 [facility] HEMATOLOGY RBC 3.11 M/CMM 4.70 - 06/29 MH 6.10 [facility] HEMATOLOGY WBC 12.3 K/CMM 3.7 - 10.4 06/29 [facility] HEMATOLOGY MCV 84.3 fL 80.0 - 06/29 MH 94.0 [facility] HEMATOLOGY Hct 26.2 % 42.0 - 06/29 MH 54.0 [facility] Hgb 8.9 g/dL 14.0 - 06/29 18.0 [facility] CHEM PANEL eGFR 56 06/28 Result [...] is not recommended in the following populations: [address] Individuals with unstable creatinine concentrations, including patients [...] Lvl 8.3 mg/dL 8.5 - 10.5 06/28 [facility] CHEM PANEL Potassium 4.5 meq/L 3.5 - 5.1 06/28 Lv [facility] CHEM PANEL CO2 24 meq/L 24 - 32 06/28 [facility] CHEM PANEL Chloride Lvl 107 meq/L 95 - 109 06/28 [facility] CHEM PANEL Glucose Lvl 118 mg/dL 70 - 99 06/28 [facility] CHEM PANEL BUN 29 mg/dL 7 - 22 06/28 [facility] CHEM PANEL Sodium Lvl 139 meq/L 135 - 145 04 [facility] CHEM PANEL Creatinine 1.30 mg/dL 0.50 - 06/28 Lvl 1.40 [facility] CHEM PANEL AGAP 12.5 meq/L 10.0 - 06/28 20.0 [facility] CHEM PANEL Magnesium 2.7 mg/dL 1.8 - 2.4 06/28 Lvl /2016 [facility] HEMATOLOGY Hgb 9.0 g/dL 14.0 - 06/28 MH 18.0 [facility] HEMATOLOGY Hct 27.7 % 42.0 - 06/28 MH 54.0 /2016 [facility] HEMATOLOGY MCV 87.2 fL 80.0 - 06/28 94.0 [facility] HEMATOLOGY MCH 28.5 pg 27.0 - 06/28 31.0 [facility] MCHC 32.6 g/dL 32.0 - 06/28 36.0 [facility] WBC 11.9 K/CMM 3.7 - 10.4 06/28 [facility] HEMATOLOGY RBC 3.17 M/CMM 4.70 - 06/28 6.10 [facility] HEMATOLOGY RDW 14.6 % 11.5 - 06/28 14.5 [facility] HEMATOLOGY Platelet 136 K/CMM 133 - 450 06/28 [facility] HEMATOLOGY MPV 8.6 fL 7.4 - 10.4 06/28 [facility] Lymphocytes 1.5 K/CMM 1.0 - 5.5 06/28 MH # /2016 [facility] HEMATOLOGY Monocytes # 1.4 K/CMM 0.0 - 0.8 06/28 [facility] HEMATOLOGY Eosinophils 0.1 K/CMM 0.0 - 0.5 06/28 /2016 [facility] HEMATOLOGY Lymphocytes 12.3 % 20.0 - 06/28 40.0 [facility] HEMATOLOGY Monocytes 11.6 % 2.0 - 12.0 06/28 [facility] HEMATOLOGY Eosinophils 1.1 % 0.0 - 4.0 06/28 [facility] HEMATOLOGY Basophils 0.3 % 0.0 - 1.0 06/28 [facility] HEMATOLOGY Segs-Bands # 8.9 K/CMM 1.5 - 8.1 06/28 [facility] HEMATOLOGY Segs 74.7 % 45.0 - 04 75.0 /2016 [facility] CHEM PANEL Magnesium 2.4 mg/dL 1.8 - 2.4 / Lvl /2016 [facility] HEMATOLOGY WBC 18.6 K/CMM 3.7 - 10.4 04 /2016 [facility] HEMATOLOGY RDW 14.7 % 11.5 - 06/27 14.5 /2016 [facility] HEMATOLOGY MCHC 33.1 g/dL 32.0 - 06/27 36.0 /2016 [facility] HEMATOLOGY Hct 29.5 % 42.0 - 06/27 54.0 /2016 [facility] HEMATOLOGY MCH 28.1 pg 27.0 - 06/27 31.0 /2016 [facility] HEMATOLOGY MCV 84.7 fL 80.0 - 06/27 94.0 [facility] HEMATOLOGY MPV 9.7 fL 7.4 - 10.4 06/27 [facility] Platelet 118 K/CMM 133 - 450 06/27 [facility] Hgb 9.8 g/dL 14.0 - 06/27 18.0 [facility] HEMATOLOGY RBC 3.48 M/CMM 4.70 - 06/27 6.10 [facility] HEMATOLOGY Lymphocytes 2.0 K/CMM 1.0 - 5.5 / /2016 [facility] HEMATOLOGY Segs 76.1 % 45.0 - 06/27 75.0 [facility] HEMATOLOGY Eosinophils 0.1 % 0.0 - 4.0 06/27 [facility] Monocytes 12.7 % 2.0 - 12.0 06/27 [facility] HEMATOLOGY Segs-Bands # 14.2 K/CMM 1.5 - 8.1 06/27 [facility] HEMATOLOGY Basophils 0.5 % 0.0 - 1.0 06/27 [facility] Lymphocytes 10.6 % 20.0 - 06/27 40.0 /2016 [facility] Basophils # 0.1 K/CMM 0.0 - 0.2 06/27 [facility] HEMATOLOGY Monocytes # 2.4 K/CMM 0.0 - 0.8 06/27 [facility] Chest Chest 1view Study: Chest 1view DX 06/27 - 1view DX - [facility] Clinical Indication: Tube placement/removal/reposition Read by: Kaleb Melissa MD Dictated Date/time: 06/27/16 08:13 Electronically Signed by: Kaleb Melissa MD 06/27/16 08:15 FINAL REPORT Comparison: Chest x-ray from 06/26/2016 FINDINGS: 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 Right internal jugular central line is stable. [place] cath eter has been removed. Cardiac silhouette is normal in size. Calcified AP window lymph node is noted. Lung volumes are diminished and bibasilar atelectasis is seen. No pleural effusion or pneumothorax is seen. The osseous structures are unremarkable. IMPRESSION: Interval removal of [place]ristian catheter SL: [id number] CHEM PANEL Phosphorus 2.0 mg/dL 2.5 - 4.5 06/26 /2016 [facility] HEMATOLOGY Eosinophils 0.0 K/CMM 0.0 - 0.5 06/26 # /2016 [facility] HEMATOLOGY Basophils # 0.0 K/CMM 0.0 - 0.2 06/26 [facility] PARATHYROI Ca Ion WB 1.11 1.05 - 06/26 D PROFILE mMol/L . [facility] PARATHYROI Ca Norm WB 1.11 1.05 - 06/26 D PROFILE mMol/L . [facility] SPECIAL Hgb A1C 6.4 % <=5.6 % 06/26 CHEMISTRY /2016 [facility] Chest Chest 1view Clinical Indication:65 years Male with Tube placement/ removal/reposition 06/26 - 1view DX /2016 - [facility] Comparison: Chest x-ray 06/25/2016 Read by: [...] Phosphorus 1.6 mg/dL 2.5 - 4.5 06/25 [facility] HEMATOLOGY RBC Morph Normal 06/25 [facility] (06/25/16 2:28 AM) HEMATOLOGY Plt Morph Normal 06/25 [facility] (06/25/16 2:28 AM) PARATHYROI Ca Norm WB 1.06 1.05 - 06/25 D PROFILE mMol/L 04.20 [facility] PARATHYROI Ca Ion WB 1.09 1.05 - 06/25 D PROFILE mMol/L 04.20 [facility] Chest Chest 1view Chest 1view DX 06/25 - 1view DX - [facility] CLINICAL HISTORY:Tube placement/removal/reposition Read by: Brett [...] wires project over the patient's chest. SL: [id number] HEMATOLOGY POC 34.0 % 42.0 - 06/24 Hematocrit 54.0 [facility] HEMATOLOGY POC 11.6 g/dL 14.0 - 06/24 Hemoglobin 18.0 [facility] HEMATOLOGY POC Ion Ca 1.09 1.05 - 06/24 mMol/L . [facility] HEMATOLOGY POC 4.4 meq/L 3.5 - 5.1 06/24 Potassium /2016 [facility] HEMATOLOGY POC Sodium 143 meq/L 135 - 145 06/24 [facility] CHEM PANEL A/G Ratio 1.4 0.7 - 1.6 06/24 [facility] CHEM PANEL Globulin 2.1 g/dL 2.7 - 4.2 06/24 [facility] CHEM PANEL Bili 0.4 mg/dL 0.0 - 1.0 06/24 [facility] CHEM PANEL Bili Direct 0.2 mg/dL 0.0 - 0.3 06/24 [facility] CHEM PANEL Bili Total 0.6 mg/dL 0.2 - 1.3 06/24 [facility] CHEM PANEL Alk Phos 38 unit/L 39 - 136 06/24 [facility] CHEM PANEL AST 42 unit/L 0 - 37 06/24 [facility] CHEM PANEL ALT 51 unit/L 0 - 65 06/24 [facility] CHEM PANEL Albumin Lvl 2.9 g/dL 3.5 - 5.0 06/24 [facility] CHEM PANEL Total 5.0 g/dL 6.4 - 8.4 06/24 [facility] CHEM PANEL Phosphorus 2.3 mg/dL 2.5 - 4.5 06/24 [facility] HEMATOLOGY FSP <5 ug/ml <5 ug/ml 06/24 [facility] HEMATOLOGY Fibrinogen 206 mg/dL 230 - 510 06/24 Lvl [facility] HEMATOLOGY PTT 34.9 s 22.9 - 06/24 MH 35.8 [facility] HEMATOLOGY INR 1.27 0.85 - 06/24 1. [facility] HEMATOLOGY PT 16.2 s 12.0 - 06/24 MH 14. [facility] PARATHYROI Ca Norm WB 1.09 1.05 - 06/24 D PROFILE mMol/L 1. [facility] PARATHYROI Ca Ion WB 1.10 1.05 - 06/24 D PROFILE mMol/L 1. [facility] HEMATOLOGY Fibrinogen 196 mg/dL 230 - 510 06/24 Lvl [facility] HEMATOLOGY PTT 32.8 s 22.9 - 06/24 MH 35.8 [facility] HEMATOLOGY PT 16.6 s 12.0 - 06/24 MH 14. [facility] HEMATOLOGY INR 1.32 0.85 - 06/24 1. [facility] Chest Chest 1view Patient Name: CHYNA RYAN 06/24 - 1view DX DX /2016 - [facility] : 1950; Age: 65 years y/o Male MR: [id number] Read by: Ted Hernandez MD Dictated Date/time: [...] base. 5. There is a right IJ [place]ristian catheter. The catheter tip is in the expected location of the pulmonary valve. The [place]ristian catheter does not extend into either main pulmonary artery. 6. The tip of the right IJ central venous catheter is in the lower superior vena cava. 7. There are mild scattered degenerative changes involving the thoracic spine. The regional skeleton is otherwise unremarkable. SL: [facility] BLOOD BANK Antibody Negative 06/24 RESULTS Scrn [facility] (06/24/16 4:15 AM) BLOOD BANK ABO/Rh A POS 06/24 RESULTS [facility] BLOOD BANK Platelet Product available 06/24 RESULTS product /2016 [facility] (06/24/16 4:00 AM) BLOOD BANK FFP product Product available 06/24 RESULTS /2016 [facility] (06/24/16 4:00 AM) BLOOD BANK Cryo product Product available 06/24 RESULTS /2016 [facility] (06/24/16 4:00 AM) BLOOD BANK RBC product Product available 06/24 RESULTS /2016 [facility] (06/24/16 4:00 AM) HEMATOLOGY INR 1.05 0.85 - 06/22 1. [facility] HEMATOLOGY PTT 37.0 s 22.9 - 06/22 35.8 /2016 [facility] HEMATOLOGY PT 13.9 s 12.0 - 06/22 14.7 /2016 [facility] BLOOD BANK ABO/Rh A POS 06/20 RESULTS /2016 [facility] BLOOD BANK Antibody Negative 06/20 RESULTS Scrn [facility] (06/20/16 5:18 AM) HEMATOLOGY Plt Morph Normal 06/20 /2016 [facility] (06/20/16 5:18 AM) HEMATOLOGY RBC Morph Normal 06/20 /2016 [facility] (06/20/16 5:18 AM) MOLECULAR HCV RNA 6.9 06/20 DIAGNOSTIC Log10 [iU]/mL /2016 [facility] MOLECULAR HCV RNA [id number] 06/20 DIAGNOSTIC VirLoad [iU]/mL /2016 [facility] [facility] BANK FFP product Product available 06/20 RESULTS /2016 [facility] (06/20/16 5:00 AM) BLOOD BANK Cryo product Product available 06/20 RESULTS /2016 [facility] (06/20/16 5:00 AM) BLOOD BANK RBC product Product available 06/20 RESULTS /2016 [facility] (06/20/16 5:00 AM) BLOOD BANK Platelet Product available 06/20 RESULTS product /2016 [facility] (06/20/16 5:00 AM) BACTERIAL MRSA by PCR Negative 06/18 - SEROLOGY [facility] (06/18/16 5:33 AM) CHEM PANEL B/C Ratio 18 - 06/18 [facility] CHEM PANEL Globulin 3.9 g/dL 2.7 - 4.2 06/18 [facility] CHEM PANEL A/G Ratio 0.8 0.7 - 1.6 06/18 [facility] CHEM PANEL ALT 67 unit/L 0 - 65 06/18 [facility] CHEM PANEL AST 74 unit/L 0 - 37 06/18 [facility] CHEM PANEL Total 7.1 g/dL 6.4 - 8.4 06/18 Protein [facility] CHEM PANEL Albumin Lvl 3.2 g/dL 3.5 - 5.0 06/18 [facility] CHEM PANEL Alk Phos 58 unit/L 39 - 136 06/18 [facility] CHEM PANEL Bili Total 0.4 mg/dL 0.2 - 1.3 06/18 [facility] LIPIDS CHD Risk 4.04 4.00 - 06/18 7.30 [facility] LIPIDS VLDL 16 06/18 [facility] LIPIDS LDL 121 mg/dL <=99 mg/dL 06/18 (Calculated) [facility] LIPIDS HDL 45 mg/dL >=61 mg/dL 06/18 [facility] LIPIDS Trig 82 mg/dL <=149 06/18 mg/dL [facility] LIPIDS Chol 182 mg/dL <=199 06/18 mg/dL [facility] SPECIAL Hgb A1C 6.4 % <=5.6 % 06/18 CHEMISTRY /2016 [facility] URINE AND UA null 0.1 - 1.0 06/18 STOOL Urobilinogen /2016 [facility] URINE AND UA Sq Epi None Seen 06/18 [facility] URINE AND UA RBC null 0 - 2 06/18 [facility] URINE AND UA Bili Negative Negative 06/18 [facility] *NA* (06/18/16 5:33 AM) URINE AND UA Ketones Negative Negative 06/18 STOOL mg/dL mg/dL [facility] URINE AND UA Glucose Negative Negative 06/18 STOOL mg/dL mg/dL [facility] URINE AND UA WBC null 0 - 5 06/18 [facility] URINE AND UA Leuk Est Negative Negative 06/18 [facility] (06/18/16 5:33 AM) URINE AND UA Nitrite Negative Negative 06/18 [facility] (06/18/16 5:33 AM) URINE AND UA Blood Negative Negative 06/18 [facility] (06/18/16 5:33 AM) URINE AND UA Protein Negative Negative 06/18 STOOL mg/dL mg/dL [facility] URINE AND UA Color Light Yellow Yellow 06/18 [facility] *NA* (06/18/16 5:33 AM) URINE AND UA Turbidity Clear Clear 06/18 [facility] (06/18/16 5:33 AM) URINE AND UA pH 5.0 5.0 - 8.0 06/18 [facility] URINE AND UA Spec Grav 1.008 <=1.030 06/18 [facility] Chest 2 Chest 2 CHEST, 2 VIEWS 06/18 - views DX views - [facility] HISTORY: ; Respiratory distress; Read by: Vikash Joseph MD Dictated Date/time: 06/18/16 09:54 Electronically Signed by: Vikash Joseph MD 06/18/16 09:55 FINAL REPORT COMPARISON: June 15, 2016 FINDINGS: Lungs are underinflated with mild bilateral basal atelectasis/infiltrate, left greater than right. No pleural effusion or pneumothorax. Stable mediastinum. No acute osseous abnormality. SL: [id number] URINE AND UA Turbidity Clear Clear 06/18 [facility] (06/17/16 11:28 PM) URINE AND UA pH 6.0 5.0 - 8.0 06/18 [facility] URINE AND UA Color Light Yellow Yellow 06/18 [facility] *NA* (06/17/16 11:28 PM) URINE AND UA Spec Grav 1.010 <=1.030 06/18 STOOL [facility] URINE AND UA WBC 1 /HPF 0 - 5 06/18 STOOL [facility] URINE AND UA Bacteria Occasional None Seen 06/18 STOOL /HPF /HPF [facility] URINE AND UA Glucose Negative Negative 06/18 STOOL mg/dL mg/dL [facility] URINE AND UA Protein Negative Negative 06/18 STOOL mg/dL mg/dL [facility] URINE AND UA null 0.1 - 1.0 06/18 STOOL Urobilinogen [facility] URINE AND UA Sq Epi None Seen 06/18 STOOL [facility] URINE AND UA Leuk Est Negative Negative 06/18 STOOL [facility] (06/17/16 11:28 PM) URINE AND UA Nitrite Negative Negative 06/18 STOOL [facility] (06/17/16 11:28 PM) URINE AND UA Blood Negative Negative 06/18 STOOL [facility] (06/17/16 11:28 PM) URINE AND UA Bili Negative Negative 06/18 [facility] *NA* (06/17/16 11:28 PM) URINE AND UA Ketones Negative Negative 06/18 STOOL mg/dL mg/dL [facility] Abdomen Abdomen RUQ ULTRASOUND ABDOMEN RIGHT UPPER QUADRANT 06/17 RUQ US - [facility] HISTORY: Abnormal Lab tests- LFT; Read [...] right abdominal ascites. IMPRESSION: Normal study. SL: [id number] LIPIDS CHD Risk 4.26 4.00 - 06/16 MH 7.30 [facility] LIPIDS VLDL 22 06/16 /2016 [facility] LIPIDS LDL 118 mg/dL <=99 mg/dL 06/16 (Calculated) /2016 [facility] LIPIDS HDL 43 mg/dL >=61 mg/dL 06/16 [facility] LIPIDS Chol 183 mg/dL <=199 06/16 mg/dL /2016 [facility] LIPIDS Trig 112 mg/dL <=149 06/16 mg/dL /2017 [facility] CARDIAC Total CK 384 unit/L 12 - 06/16 ENZYMES /2016 [facility] CARDIAC Troponin-I 7.44 ng/mL 0.00 - 06/16 Result ENZYMES 0.40 Comment: [facility] Critical Result(s) called to Missael Alvarenga at 06/15/2016 20:33 by TW. Read back OK. CARDIAC CK MB Index 4.4 0.0 - 2.5 06/16 ENZYMES /2017 [facility] CARDIAC CK MB 17.0 ng/mL 0.5 - 3.6 06/16 ENZYMES /2017 [facility] CARDIAC CK MB Index 4.8 0.0 - 2.5 06/15 ENZYMES /2017 [facility] CARDIAC Total CK 412 unit/L - 06/15 ENZYMES /2017 [facility] CARDIAC CK MB 19.8 ng/mL 0.5 - 3.6 06/15 ENZYMES /2017 [facility] CARDIAC Troponin-I 6.52 ng/mL 0.00 - 06/15 Result ENZYMES 0.40 2017 Comment: [facility] Critical Result(s) called to Robert long at 06/15/2016 16:44 by TW. Read back OK. CHEM PANEL Globulin 3.7 g/dL 2.7 - 4.2 06/15 /2016 [facility] CHEM PANEL A/G Ratio 0.9 0.7 - 1.6 06/15 [facility] CHEM PANEL B/C Ratio 19 6 - 25 06/15 [facility] CHEM PANEL Bili Total 0.5 mg/dL 0.2 - 1.3 06/15 [facility] CHEM PANEL Albumin Lvl 3.3 g/dL 3.5 - 5.0 06/15 [facility] CHEM PANEL Total 7.0 g/dL 6.4 - 8.4 06/15 Protein [facility] CHEM PANEL Alk Phos 68 unit/L 39 - 136 06/15 [facility] CHEM PANEL AST 51 unit/L 0 - 37 06/15 [facility] CHEM PANEL ALT 44 unit/L 0 - 65 06/15 [facility] DRUG U Cannab Scr Negative Negative 06/15 SCREEN [facility] *NA* (06/15/16 2:56 PM) DRUG U Phencyc Negative Negative 06/15 SCREEN Scr [facility] *NA* (06/15/16 2:56 PM) DRUG U Opiate Scr Negative Negative 06/15 SCREEN [facility] *NA* (06/15/16 2:56 PM) DRUG U Cocaine Negative Negative 06/15 SCREEN Scr [facility] *NA* (06/15/16 2:56 PM) DRUG U Benzodia Negative Negative 06/15 SCREEN Scr [facility] *NA* (06/15/16 2:56 PM) DRUG U Amph Scr Negative Negative 06/15 SCREEN [facility] *NA* (06/15/16 2:56 PM) DRUG U Elsy Scr Negative Negative 06/15 SCREEN [facility] *NA* (06/15/16 2:56 PM) DRUG UDS Note See Note 06/15 [facility] (06/15/16 2:56 PM) IMMUNOLOGY Hep Bs Ag Negative Negative 06/15 [facility] *NA* (06/15/16 2:56 PM) IMMUNOLOGY Hep B Core Negative Negative 06/15 IgM /2016 [facility] *NA* (06/15/16 2:56 PM) IMMUNOLOGY Hep C Ab Positive 06/15 [facility] *ABN* (06/15/16 2:56 PM) IMMUNOLOGY Hep A IgM Negative Negative 06/15 [facility] *NA* (06/15/16 2:56 PM) SPECIAL Hgb A1C 6.6 % <=5.6 % 06/15 CHEMISTRY /2016 [facility] URINE AND UA pH 5.5 5.0 - 8.0 06/15 STOOL [facility] URINE AND UA Spec Grav 1.020 <=1.030 06/15 STOOL [facility] URINE AND UA Protein Negative Negative 06/15 STOOL [facility] (06/15/16 2:56 PM) URINE AND UA Turbidity Clear Clear 06/15 STOOL [facility] (06/15/16 2:56 PM) URINE AND UA Leuk Est Negative Negative 06/15 STOOL [facility] (06/15/16 2:56 PM) URINE AND Micro? Not Indicated 06/15 STOOL [facility] (06/15/16 2:56 PM) URINE AND UA Glucose Negative Negative 06/15 STOOL [facility] (06/15/16 2:56 PM) URINE AND UA Bili Negative Negative 06/15 STOOL [facility] *NA* (06/15/16 2:56 PM) URINE AND UA Ketones Negative Negative 06/15 STOOL [facility] *NA* (06/15/16 2:56 PM) URINE AND UA Blood Negative Negative 06/15 STOOL [facility] (06/15/16 2:56 PM) URINE AND UA Nitrite Negative Negative 06/15 STOOL [facility] (06/15/16 2:56 PM) URINE AND UA 0.2 EU/dL 0.1 - 1.0 06/15 [facility] Urobilinogen [facility] URINE AND UA Color Yellow Yellow 06/15 STOOL [facility] *NA* (06/15/16 2:56 PM) Chest 2 Chest 2 Patient Name: CHYNA RYAN 06/15 - views DX views DX - [facility] : 1950; Age: 65 years Male MR: [id number] Read by: Azeem Duffy MD Dictated Date/time: [...] follow-up chest imaging to document resolution. SL: [id number] Vital Signs Vital Sign Value Date Comments Source Respitory Rate 20 06/30/2016 [facility] Systolic (mm Hg) 114 06/30/2016 [facility] Diastolic (mm Hg) 75 06/30/2016 [facility] Heart Rate 76 06/30/2016 [facility] Respitory Rate 20 06/30/2016 [facility] Systolic (mm Hg) 105 06/30/2016 [facility] Diastolic (mm Hg) 60 06/30/2016 [facility] Heart Rate 77 06/30/2016 [facility] Systolic (mm Hg) 108 06/30/2016 [facility] Diastolic (mm Hg) 68 06/30/2016 [facility] Heart Rate 70 06/30/2016 [facility] Respitory Rate 18 06/30/2016 [facility] Weight 111.384 06/29/2016 [facility] Weight 110.469 06/28/2016 [facility] Height 177.8 cm 06/25/2016 [facility] Height 177.8 cm 06/25/2016 [facility] Height 177.8 cm 06/24/2016 [facility] Temperature Oral (F) 97.6 F 06/24/2016 [facility] Weight 103.653 06/24/2016 [facility] Temperature Oral (F) 97.9 F 06/20/2016 [facility] BMI Calculated 32.56 06/15/2016 [facility] Encounters Location Location Encounter Encounter Reason Attending ADM DC Status Source Details Type Number For Provider Date Date Visit [facility] [id number] [facility] [id number] 01/16 01/18 [facility] /2017 [facility] Records Group Procedures Procedure Code Date Perfomer Comments Source Repair of knee [id number] 03/27/1973 [facility] collateral ligaments Repair of knee [id number] 03/27/1973 Medical collateral Group ligaments
--- OUTSIDE RECORDS SUMMARY | 2018-08-11 12:11 | XMS REPORT | Summary of Care ---
:1950 Author Organization [facility] Cardiology [facility] Address [address] [place] [address], [address] [place] [address]- Encounter [facility] Encntr_alislim(FIN) [id number] Date(s): 01/16/18 - 01/17/[address] [place], [place] [id number]- [phone] Vital Signs No data available for this section Problem List Condition Effective Dates Status Health Status Informant COPD, mild(Confirmed) 2012 Resolved Allergies, Adverse Reactions, Alerts Substance Reaction Severity Status Betadine Active Medications No data available for this section Results No data available for this section Immunizations Given and Recorded Vaccine Date Status Refusal Reason pneumococcal 13-valent vaccine 06/30/16 Given Procedures Procedure Date Related Diagnosis Body Site Status Repair of knee collateral ligaments 1973 Completed Social History Social History Type Response Smoking Status Former smoker; Type: Cigarettes; Ready to change: Yes; Concerns about tobacco use in household: No; Exposure to Tobacco Smoke None; Cigarette Smoking Last 365 Days No; Reg Smoking Cessation Counseling No; Started [age] age: 13.0; Stopped at age: 55; entered on: 06/15/16 Assessment and Plan No data available for this section
--- OUTSIDE RECORDS SUMMARY | 2018-08-11 12:12 | XMS REPORT ---
:1950 Author Organization [facility] Address [address] [place] [address] [address] [place] [address] Care Team Providers Name Role Phone Unavailable Unavailable Unavailable Problems This patient has no known problems. Allergies, Adverse Reactions, Alerts This patient has no known allergies or adverse reactions. Medications This patient has no known medications.
[2018-08-11 13:18] LABS: Absolute Lymphocytes (CBC) 1.7 K/uL (0.7-4.9); Absolute Monocytes 1.4 K/uL (0.1-1.3); Absolute Neutrophil 5.2 K/uL (1.8-8.0); Basophils % 1.2 % (0-1.3); Eosinophils % 0.7 % (0-4.4); Hematocrit 38.2 % (39.6-49.0); Lymphocytes % 19.8 % (15.3-44.8); MPV 7.9 fL (7.6-11.3); Monocytes % 16.7 % (3.3-12.3); RBC Red Blood Cell Count 4.57 M/uL (4.33-5.43)
[2018-08-11 13:21] LABS: Protime INR 1.06
[2018-08-11] MEDS ORDERED: LEVALBUTEROL 1.25 MG/3 ML NEB ONE (13:32)
[2018-08-11] MEDS ORDERED: FUROSEMIDE 20 MG/ 2ML VIAL ONE (13:32)
[2018-08-11 13:37] LABS: Albumin 3.8 g/dL (3.4-5.0); Bilirubin Direct 0.1 mg/dL (0-0.2); Bilirubin Total 0.5 mg/dL (0.2-1.0); Magnesium 2.4 mg/dL (1.8-2.4); Potassium 3.9 mmol/L (3.5-5.1); Protein, Total 7.9 g/dL (6.4-8.2); Troponin (Emerg Dept Use Only) 0.04 ng/mL (0.0-0.045)
--- NOTE | 2018-08-11 13:39 | RAD REPORT ---
EXAM DESCRIPTION: CT - Stone Protocol - 08/11/2018 1:19 pm CLINICAL HISTORY: Abdominal pain. COMPARISON: None. TECHNIQUE: Computed axial tomography of the abdomen pelvis was obtained without oral or IV contrast. Lack of IV and oral contrast limits evaluation of solid organs, bowel, and vessels. Coronal reformat jigar images were obtained and reviewed. All CT scans are performed using dose optimization technique as appropriate and may include automated exposure control or mA/KV adjustment according to patient size. FINDINGS: Examination is limited secondary to patient motion artifact A renal calculus is not seen. An ureteral calculus is not noted. A bladder calculus is not present. The liver, spleen, pancreas and adrenals appear grossly normal There is no evidence of diverticulitis. Moderate amount of stool in the colon Small umbilical hernia contains fat Spondylosis involves the lumbar spine resulting in spinal stenosis IMPRESSION: A genitourinary calculus is not visualized Moderate amount stool within the colon
--- NOTE | 2018-08-11 13:55 | RAD REPORT ---
EXAM DESCRIPTION: No Single View08/11/2018 1:05 pm CLINICAL HISTORY: sob COMPARISON: July 25, 2018 FINDINGS: The lungs appear clear of acute infiltrate. The heart is mildly enlarged. Postsurgical changes involve the chest. IMPRESSION: No acute abnormalities displayed
--- NOTE | 2018-08-11 15:56 | EDPHYS ---
Physician Documentation [facility] Name: Valerio Berg Age: 67 yrs Sex: Male : 1950 Arrival Date: 08/11/2018 Time: 12:07 Bed 5 Private MD: ED Physician Gerardo Do HPI: 08/11 12:28 This 67 yrs old Black Male presents to ER via Ambulatory with complaints of Cough, jmm Shortness Of Breath, Constipation. 12:28 The patient or guardian reports cough. Onset: The symptoms/episode began/occurred jmm gradually, 1 week(s) ago. Modifying factors: The symptoms are alleviated by nothing, the symptoms are aggravated by nothing. This is s 67 year old male with a history of COPD that presents to the ED with complaints of constipation since last week as well as ongoing cough and shortness of breath. . Historical: - Allergies: 12:11 Betadine; sg 12:11 Povidone-Iodine; sg - PMHx: 12:11 Borderline Diabetes; COPD; Myocardial infarction; sg - PSHx: 12:11 CABG; Knee surgery; hip sx; sg - Immunization history:: Adult Immunizations up to date. - Social history:: Smoking status: Patient/guardian denies using tobacco. - Ebola Screening: : Patient negative for fever greater than or equal to 101.5 degrees Fahrenheit, and additional compatible Ebola Virus Disease symptoms Patient denies exposure to infectious person Patient denies travel to an Ebola-affected area in the 21 days before illness onset No symptoms or risks identified at this time. ROS: 12:28 Constitutional: Negative for fever, chills, and weight loss. jmm 12:28 Respiratory: Positive for cough, shortness of breath. 12:28 Abdomen/GI: Positive for constipation, abdominal distension. 12:28 All other systems are negative. Exam: 12:28 Constitutional: This is a well developed, well nourished patient who is awake, alert, jmm and in no acute distress. Head/Face: atraumatic. Eyes: EOMI, no conjunctival erythema appreciated ENT: Moist Mucus Membranes Neck: Trachea midline, Supple Chest/axilla: Normal chest wall appearance and motion. Cardiovascular: Regular rate and rhythm. No edema appreciated Respiratory: Normal respirations, no respiratory distress appreciated 12:28 Abdomen/GI: Inspection: distension, that is mild, Bowel sounds: normal, Palpation: abdomen is soft and non-tender, in all quadrants. 12:28 Back: ROM is normal. 12:28 Musculoskeletal/extremity: ROM: intact in all extremities. 12:28 Skin: Appearance: Color: normal in color. 12:28 Neuro: Orientation: is normal, Mentation: is normal, Memory: is normal. 12:28 Psych: Behavior/mood is pleasant, cooperative. 13:04 ECG was reviewed by the Attending Physician. [facility] Vital Signs: 12:10 BP 137 / 76; Pulse 80; Resp 17; Temp 97.2; Pulse Ox 97% on R/A; Weight 109.77 kg; sg Height 5 ft. 9 in. (175.26 cm); Pain 0/10; 13:30 BP 131 / 81; Pulse 64; Resp 22; Pulse Ox 100% on Nebulizer Mask; ph 14:05 BP 122 / 63; Pulse 78; Resp 18; Pulse Ox 99% ; sv 15:12 BP 115 / 69; Pulse 65; Resp 24; Pulse Ox 100% ; sv 16:34 BP 119 / 76; Pulse 64; Resp 18; Temp 97.4; Pulse Ox 98% on R/A; ph 12:10 Body Mass Index 35.74 (109.77 kg, 175.26 cm) sg MDM: 12:28 Patient medically screened. [facility] 14:40 Data reviewed: vital signs, nurses notes. Counseling: I had a detailed discussion with octavia the patient and/or guardian regarding: the historical points, exam findings, and any diagnostic results supporting the discharge/admit diagnosis, lab results, radiology results, the need for further work-up and treatment in the hospital. ED course: Patient developed chest pain in the ED which he described as sharp. Patient states he most recent stress test was over 6 month ago. Will admit for obs/rule out. . 14:57 ED course: Left voicemail with Dr. Bhatt for admission. [facility] 15:42 ED course: I discussed the patient with Dr. Bhatt whom advised to have Dr. Do [facility] evaluate the patient to confirm need for admission. I then discussed the patient with Dr. Do and stratified risk using HEART score. Patient's HEART score is 5. I attempted to contact Dr. Bhatt. Voicemail is full. 16:52 ED course: I discussed the patient with Dr. Bhatt whom accepted admission. Will admit priscilla to Dr. Veliz's service. 08/11 12:29 Order name: Basic Metabolic Panel; Complete Time: 13:57 [facility] 08/11 12:29 Order name: CBC with Diff; Complete Time: 13:22 [facility] 08/11 12:29 Order name: LFT's; Complete Time: 13:57 [facility] 08/11 12:29 Order name: Magnesium; Complete Time: 13:57 [facility] 08/11 12:29 Order name: NT PRO-BNP; Complete Time: 13:57 [facility] 08/11 12:29 Order name: PT-INR; Complete Time: 13:23 [facility] 08/11 12:29 Order name: Troponin (emerg Dept Use Only); Complete Time: 13:57 [facility] 08/11 12:29 Order name: XRAY Chest (1 view); Complete Time: 13:57 [facility] 08/11 12:29 Order name: EKG; Complete Time: 12:30 [facility] 08/11 12:29 Order name: Cardiac monitoring; Complete Time: 13:07 [facility] 08/11 12:29 Order name: EKG - Nurse/Tech; Complete Time: 13:07 [facility] 08/11 12:29 Order name: CT Stone Protocol; Complete Time: 13:57 [facility] 08/11 12:29 Order name: IV Saline Lock; Complete Time: 13:07 [facility] 08/11 12:29 Order name: Labs collected and sent; Complete Time: 13:07 [facility] 08/11 12:29 Order name: O2 Per Protocol; Complete Time: 13:08 [facility] 08/11 12:29 Order name: O2 Sat Monitoring; Complete Time: 13: [facility] 08/11 14:16 Order name: EKG - Nurse/Tech; Complete Time: 14:39 jmm EC:04 Rate is 71 beats/min. Rhythm is regular. Left axis deviation noted. DC interval is jmm normal. QRS interval is normal. QT interval is normal. T waves are Flattened in leads III, aVL, aVF. No ST changes noted. Administered Medications: 13:32 Drug: Lasix 20 mg Route: IVP; Site: right antecubital; ph 16:39 Follow up: Urine output 550 ml; Response: No adverse reaction ph 13:32 Drug: Xopenex (3) 1.25 mg Route: Inhalation; ph 13:52 Follow up: Response: No adverse reaction ph Disposition: 08/11/18 15:56 Hospitalization ordered by Chapo Veliz for Observation. Preliminary diagnosis are Chest pain, unspecified, Chronic obstructive pulmonary disease with (acute) exacerbation. - Bed requested for Telemetry/MedSurg (observation). - Status is Observation. ph - Condition is Stable. - Problem is an acute exacerbation. - Symptoms have worsened. UTI on Admission? No Addendum: 08/16/2018 23:03 Co-signature as Attending Physician, Gerardo Do MD. g s Signatures: Dispatcher [employer] EDMS Catrachito Farfan RN RN Christiano Haines PA PA jmm Solis, Maria ms Hall, Patricia, RN RN ph Starr, MD KATE Carrillo Corrections: (The following items were deleted from the chart) 08/11 16:32 15:56 Hospitalization Ordered by A Keren LOVE for Observation. Preliminary diagnosis is ms Chest pain, unspecified; Chronic obstructive pulmonary disease with (acute) exacerbation. Bed requested for Telemetry/MedSurg (observation). Status is Observation. Condition is Stable. Problem is an acute exacerbation. Symptoms have worsened. UTI on Admission? No. octavia 17:28 16:32 08/11/2018 15:56 Hospitalization Ordered by A Keren LOVE for Observation. ph Preliminary diagnosis is Chest pain, unspecified; Chronic obstructive pulmonary disease with (acute) exacerbation. Bed requested for Telemetry/MedSurg (observation). Status is Observation. Condition is Stable. Problem is an acute exacerbation. Symptoms have worsened. UTI on Admission? No. ms
--- NOTE | 2018-08-11 15:56 | ER ---
Nurse's Notes [facility] Name: Valerio Berg Age: 67 yrs Sex: Male : 1950 Arrival Date: 08/11/2018 Time: 12:07 Bed 5 Private MD: Diagnosis: Chest pain, unspecified;Chronic obstructive pulmonary disease with (acute) exacerbation Presentation: 08/11 12:09 Presenting complaint: Patient states: Cough, Shortness of breath with difficulty sg breathing while walking, pt reports taking a laxative last week but has not had a really good BM per the pt, reports having swelling in his abdomen and also becoming incontinent of urine. Transition of care: patient was not received from another setting of care. Onset of symptoms was August 11, 2018. Risk Assessment: Do you want to hurt yourself or someone else? Patient reports no desire to harm self or others. Initial Sepsis Screen: Does the patient meet any 2 criteria? No. Patient's initial sepsis screen is negative. Does the patient have a suspected source of infection? Yes: Acute abdominal pain. Care prior to arrival: None. 12:09 Method Of Arrival: Ambulatory sg 12:09 Acuity: ADRIÁN 3 sg Historical: - Allergies: 12:11 Betadine; sg 12:11 Povidone-Iodine; sg - PMHx: 12:11 Borderline Diabetes; COPD; Myocardial infarction; sg - PSHx: 12:11 CABG; Knee surgery; hip sx; sg - Immunization history:: Adult Immunizations up to date. - Social history:: Smoking status: Patient/guardian denies using tobacco. - Ebola Screening: : Patient negative for fever greater than or equal to 101.5 degrees Fahrenheit, and additional compatible Ebola Virus Disease symptoms Patient denies exposure to infectious person Patient denies travel to an Ebola-affected area in the 21 days before illness onset No symptoms or risks identified at this time. Screenin:39 Abuse screen: Denies threats or abuse. Denies injuries from another. Nutritional ph screening: No deficits noted. Tuberculosis screening: No symptoms or risk factors identified. Fall Risk None identified. Assessment: 12:45 General: Appears in no apparent distress. uncomfortable, Behavior is calm, cooperative, ph appropriate for age, Denies fever, feeling ill. Pain: Denies pain. Neuro: Level of Consciousness is awake, alert, obeys commands, Oriented to person, place, time, situation. Cardiovascular: Reports fatigue, shortness of breath, Denies chest pain, nausea, palpitations, vomiting, Capillary refill < 3 seconds in bilateral fingers Patient's skin is warm and dry. Respiratory: Reports shortness of breath on exertion cough that is persistent Airway is patent Respiratory effort is even, Respiratory pattern is regular, Breath sounds are coarse bilaterally. GI: Abdomen is round Bowel sounds present X 4 quads. Reports bloating, constipation, Patient currently denies abdominal pain, nausea, vomiting. : Reports incontinence, Denies burning with urination. Derm: Skin is healthy with good turgor, Skin is pink, warm \T\ dry. Musculoskeletal: Circulation, motion, and sensation intact. 14:05 Reassessment: Patient and/or family updated on plan of care and expected duration. Pain sv level reassessed. Patient is alert, oriented x 3, equal unlabored respirations, skin warm/dry/pink. Pt c/o left sided sharp chest pain with the intensity increasing and decreasing. Pt stated he just finished urinating. Informed Christiano JIMENEZ. 15:35 Reassessment: Patient appears in no apparent distress at this time. Patient and/or ph family updated on plan of care and expected duration. Pain level reassessed. Patient is alert, oriented x 3, equal unlabored respirations, skin warm/dry/pink. Pt resting quietly, denies pain at this time, awaiting room assignment. 16:43 Reassessment: Patient appears in no apparent distress at this time. Patient and/or ph family updated on plan of care and expected duration. Pain level reassessed. Pt asleep w/ equal, unlabored respirations, attempted to call report to 4th floor, placed on hold > 5 min, will attempt again. 17:15 Reassessment: Patient appears in no apparent distress at this time. Report called to 4th floor, pt taken to [facility] via [facility]. Vital Signs: 12:10 BP 137 / 76; Pulse 80; Resp 17; Temp 97.2; Pulse Ox 97% on R/A; Weight 109.77 kg; sg Height 5 ft. 9 in. (175.26 cm); Pain 0/10; 13:30 BP 131 / 81; Pulse 64; Resp 22; Pulse Ox 100% on Nebulizer Mask; ph 14:05 BP 122 / 63; Pulse 78; Resp 18; Pulse Ox 99% ; sv 15:12 BP 115 / 69; Pulse 65; Resp 24; Pulse Ox 100% ; sv 16:34 BP 119 / 76; Pulse 64; Resp 18; Temp 97.4; Pulse Ox 98% on R/A; ph 12:10 Body Mass Index 35.74 (109.77 kg, 175.26 cm) Vitals: 13:30 Cardiac Rhythm Assessment Sinus rhythm. ph ED Course: 12:07 Patient arrived in ED. hb 12:09 Arm band placed on. sg 12:10 Triage completed. sg 12:22 Christiano Leyva PA is PHCP. [facility] 12:22 Gerardo Do MD is Attending Physician. [facility] 12:22 Mariam Zarco, APURVA is Primary Nurse. ph 12:45 Missed attempt(s): 20 gauge in left antecubital area. Bleeding controlled, band aid dh3 applied, catheter tip intact. 12:50 Missed attempt(s): 20 gauge in left antecubital area. Bleeding controlled, band aid dh3 applied, catheter tip intact. 12:55 Initial lab(s) drawn, by dc, sent to lab. Inserted saline lock: 20 gauge in right dh3 antecubital area, using aseptic technique. Blood collected. 13:04 EKG done, by ED staff, reviewed by Christiano JIMENEZ. 3 13:06 XRAY Chest (1 view) In Process Unspecified. EDMS 13:[address] mw3 13:18 CT completed. Patient tolerated procedure well. Patient moved back from CT. mw3 13:19 CT Stone Protocol In Process Unspecified. EDMS 13:40 Patient has correct armband on for positive identification. Placed in gown. Bed in low ph position. Call light in reach. Side rails up X 1. quality assurance monitor on. Pulse ox on. NIBP on. Warm blanket given. 15:37 No provider procedures requiring assistance completed. Patient admitted, IV remains in ph place. 15:55 Chapo Veliz MD is Hospitalizing Provider. [facility] Administered Medications: 13:32 Drug: Lasix 20 mg Route: IVP; Site: right antecubital; ph 16:39 Follow up: Urine output 550 ml; Response: No adverse reaction ph 13:32 Drug: Xopenex (3) 1.25 mg Route: Inhalation; ph 13:52 Follow up: Response: No adverse reaction ph Output: 16:39 Urine: 550ml; Total: 550ml. ph Outcome: 15:56 Decision to Hospitalize by Provider. [facility] 17:28 Patient left the ED. ph 17:28 Admitted to Tele accompanied by tech, via wheelchair, with chart. ph 17:28 Condition: stable 17:28 Instructed on the need for admit. Signatures: Dispatcher [employer] Milka Qureshi, RN Catrachito Isaacs RN RN Christiano Haines PA PA jmm Hall, Patricia, RN RN Hoa Lugo RN RN Juanita Knight [facility] Bernice Vivar 3 Corrections: (The following items were deleted from the chart) 13:14 12:05 Inserted saline lock: 20 gauge in right antecubital area, using aseptic 3 technique. Blood collected. [facility] 13:14 12:05 Initial lab(s) drawn, by dc, sent to lab. [place] [id number] 18:43 16:34 BP 119 / 76; Pulse 64bpm; Resp 18bpm; Pulse Ox 98% RA; ph ph
[2018-08-11] MEDS ORDERED: ONDANSETRON 4 MG/2 ML VIAL IV PRN (15:59)
[2018-08-11] MEDS ORDERED: IPRATROPIUM BROM 0.5MG/2.5ML NEB PRN (15:59)
[2018-08-11] MEDS ORDERED: ACETAMINOPHEN 500 MG TAB PO PRN (15:59)
[2018-08-11] MEDS ORDERED: ALBUTEROL 2.5 MG/3 ML NEB SOL NEB PRN (15:59)
[2018-08-11] MEDS: METHYLPREDNISOLONE 40 MG INJ IV SCH (18:13)
[2018-08-11 20:54] LABS: Urine Appearance CLEAR; Urine Bilirubin NEGATIVE (NEG); Urine Blood NEGATIVE (NEG); Urine Color YELLOW; Urine Glucose NEGATIVE (NEG); Urine Protein NEGATIVE (NEG); Urine Urobilinogen 0.2 mg/dL (0.2-1.0)
[2018-08-11 21:00] LABS: Urine Microscopic Reflex NO UMIC
[2018-08-11] MEDS: GABAPENTIN 300 MG CAP PO SCH (23:32)
[2018-08-12] MEDS: METHYLPREDNISOLONE 40 MG INJ IV SCH ×3 (01:14→16:35)
[2018-08-12 05:55] LABS: Absolute Lymphocytes (CBC) 0.6 K/uL (0.7-4.9); Absolute Monocytes 0.2 K/uL (0.1-1.3); Absolute Neutrophil 3.7 K/uL (1.8-8.0); Basophils % 0.3 % (0-1.3); Lymphocytes % 12.6 % (15.3-44.8); Monocytes % 3.7 % (3.3-12.3); RBC Red Blood Cell Count 4.33 M/uL (4.33-5.43)
[2018-08-12 06:04] LABS: Potassium 4.2 mmol/L (3.5-5.1)
--- NOTE | 2018-08-12 06:20 | EKG ---
Test Date: 2018-08-11 Test Time: 13:04:57 Entertainment Usher: VI MEASUREMENT RESULTS: Intervals: Rate: 71 MI: 178 QRSD: 152 QT: 428 QTc: 465 [place]: P: 15 MI: 178 QRS: -62 T: 14 INTERPRETIVE STATEMENTS: Normal sinus rhythm with sinus arrhythmia Left axis deviation Right bundle branch block Possible Lateral infarct, age undetermined Abnormal ECG Compared to ECG 06/24/2018 14:09:24 Atrial premature complex(es) no longer present Myocardial infarct finding still present Electronically Signed On 08-12-18 06:20:03 CDT by Darci Hernandez
[2018-08-12] MEDS: GABAPENTIN 300 MG CAP PO SCH ×3 (08:35→19:55)
[2018-08-12] MEDS: ASPIRIN EC 81 MG TAB PO SCH (08:35)
[2018-08-12] MEDS: ENOXAPARIN 40 MG/0.4 ML SQ SCH (08:35)
--- NOTE | 2018-08-12 15:59 | CON ---
History Of Present Illness: Mr. Berg came to the hospital and it is actually difficult to tell lamar chaudhry the actual chief complaint is, but he told the emergency room people when he got there yesterday ab out 5:30 in the evening that he had cough and shortness of breath on walking. Few days before that h e had been watching TV, using a CPAP machine, took off the CPAP machine, stood up and had a syncopal episode. He reports constipation, swelling in the abdomen, and urinary incontinence. The patient walsh s had a very difficult problem with cough. He has been to see a pulmonary doctor, me and other docto rs, we have not been able to figure it out. A cardiac cath was done in March just to make sure it was not an unusual manifestation of CAD. He has a previous bypass surgery. He had a 1 vessel left i nternal mammary artery bypass to the LAD many years ago and that was widely patent, no problems with that. His left main circumflex and right coronary arteries were normal. LAD was totally occluded an d supplied by bypass graft, in other words his coronary circulation was excellent, and he had a left ventricular end-diastolic pressure of 11 within normal limits. Since he has been here in the [facility], troponins have been done, they are normal, N-terminal proBNP was 991 and 849. He has renal insuff iciency. His chest x-ray does not show infarction or pneumonia or congestive heart failure; it shows postsurgical changes; no other findings. Medications: The patient's outpatient medications have been torsemide, metoprolol, linagliptin, ator vastatin, potassium chloride, Plavix, albuterol, tramadol, gabapentin, levothyroxine, and montelukast . His cough tends to occur when he is talking to doctors, less so other times. It certainly bothers hi m when he is not around doctors as well, but as soon as I walk in, he started coughing and he said he had been coughing for several hours before, the cough does not produce any phlegm, it is not exactly dry either, and he has little bit of rattling with a deep cough. Physical Examination: Lungs: Clear. Heart: Within normal limits. Extremities: Trace edema. Distal pulses normal. Impression: He uses no tobacco now. I think the patient's situation could probably get better if he went to cardiac rehab. As an outpatient, he did some exercise, lost some weight and he may be hypot ensive when he is at home. I think we should do orthostatic vital signs while he is here, see what w larissa learn. He does not need another stress test or cardiac cath and echocardiogram might reveal someth ing interesting so we can do that tomorrow. CHERYL/ARMANDO Voice ID: [id number] Report ID: [id number]
--- NOTE | 2018-08-12 21:42 | HP ---
Date of Admission: 08/12/2018 Chief Complaint: Constipation. History Of Present Illness: This is a 67-year-old male patient with coronary artery disease, COPD, hypertension, diabetes, came into emergency room with constipation problem. After he was evaluated in the emergency room, he was admitted to the hospital with this constipation problem as well as chest pain. I saw him this morning and upon further questioning, he reports that he has used MiraLAX from time to time but not on a regular basis for constipation problem. Denies any abdominal pain, nausea, vomiting. He has chronic cough, which is mostly dry. Occasionally he coughs up some mucus. He has seen Dr. Farr and he reports that Dr. Farr was not able to help with his chronic cough, so he started to see another telephone cleaner, Dr. Aguilera in [facility] and he has seen him a couple of times and I have encouraged him to continue to follow up with him with his ongoing cough problem. When I asked him if he reported any chest pain when he came into emergency room, he says no, he did not have any chest pain, but somehow admission record states chest pain as one of the admitting diagnosis, but the patient denies it. He denied any other complaints. But after I saw him, salvager Dr. Hernandez evaluated him and he did not complain of anything specific, but after Dr. Hernandez left, he reported to the nursing staff that he actually had episode of passing out. He does not know for how long, but this happened a day or 2 days before he came into hospital. He got up and fainted on the floor and woke up after a while, but he does not know how long he had passed out so with that information, Dr. Hernandez has recommended for the patient to stay in hospital overnight and to get echocardiogram done tomorrow. Allergies: POVIDONE-IODINE. Medications: List reviewed. Review of Systems: Cardiovascular: As mentioned above. Respiratory: As mentioned above. GI: As mentioned above. All other systems reviewed and negative. Past Surgical History: Coronary artery bypass surgery and teeth extraction. Past Medical History: Hypertension, chronic kidney disease stage 3 to stage 4, type 2 diabetes mellitus, hyperlipidemia, coronary artery disease, hypothyroidism, COPD. Family History: Not pertinent. Social History: Negative for smoking, alcohol use. Physical Examination: Vital Signs: Height 5 feet 9 inches, weight 215 pounds, temperature 97.2, pulse 80, respiratory rate 17, blood pressure 137/76. General: Awake, alert, oriented, not in distress. HEENT: Head atraumatic, normocephalic. Conjunctivae nonerythematous. Sclerae white. Mouth, no thrush or edema noted. Ears/Nose, no mass, lesion, discharge noted. Neck: Supple. No JVD, lymph nodes, bruit, thyromegaly noted. Lungs: Bilateral good equal air entry. Clear to auscultation. No rhonchi. No rales. Heart: Normal heart sounds, no murmur or gallop. Abdomen: Soft, bowel sounds normal. No guarding, rigidity, tenderness, mass, hepatosplenomegaly, distention, or bruit noted. Extremities: No leg edema. No calf tenderness. Skin: No rash, ulcer, cellulitis. Lymphatics: No lymph node enlargement in neck, supraclavicular, infraclavicular region. Neuro: No focal neurological deficit. Chest: Unremarkable. External Genitalia: Deferred. Rectal: Deferred. Laboratory Data: Yesterday, sodium 137, potassium 3.9, chloride 103, bicarb 27 , BUN 47, creatinine 1.81, glucose 120. Liver function tests unremarkable. First troponin 0.04, second and third troponin 0.03. ProBNP 991. This morning , BUN 44, creatinine 1.51, glucose 194, sodium 136, potassium 4.2, chloride 103 , bicarb 26. ProBNP 849 this morning. Yesterday, white count 8.5, hemoglobin 12.6, platelets 265. This morning white count 4.4, hemoglobin 12.3, platelets 247. Urinalysis negative. Electrocardiogram; normal sinus rhythm, right bundle branch block. Chest x-ray, no acute cardiopulmonary changes. CAT scan of the abdomen, evidence of constipation. No other acute intraabdominal finding. No evidence of kidney stone. Impression: 1. Syncope. 2. Chest pain. 3. Constipation. 4. Coronary artery disease. 5. Hypertension. 6. Type 2 diabetes mellitus. 7. Hyperlipidemia. 8. Hypothyroidism. 9. Chronic kidney disease stage 3 to stage 4. 10. Chronic obstructive pulmonary disease. Plan: Admit the patient to hospital for further evaluation and management of this problem. The patient is appropriate for observation. We will go ahead and continue to follow with salvager. Home medications will be continued per order. I will see him tomorrow for followup. The patient will have an echocardiogram tomorrow and then we will plan further management including possibility of discharge depending on the results and patient's condition. We will get orthostatic vital signs today. ANNA/ARMANDO Voice ID: [id number] MTDD
[2018-08-13] MEDS: METHYLPREDNISOLONE 40 MG INJ IV SCH ×2 (00:14→09:09)
--- NOTE | 2018-08-13 06:30 | RAD REPORT ---
EXAM DESCRIPTION: CT - Thorax Wo Con - 08/12/2018 9:36 pm CLINICAL HISTORY: Persistent cough, COPD COMPARISON: Portable chest August 11 TECHNIQUE: Axial 5 mm thick images of the chest were obtained without IV contrast. All CT scans are performed using dose optimization technique as appropriate and may include automated exposure control or mA/KV adjustment according to patient size. FINDINGS: There is significant motion degradation present. Patient was unable to lay supine without coughing. There is no focal mass or consolidation present. Motion exaggerates interstitial markings. A minimal interstitial infiltrate or edema would be possible. Minimal atelectasis at the left base matute spected. No abnormal bronchial wall thickening seen. No endobronchial lesion. No pleural thickening o r pleural effusion. No pneumothorax. No abnormal mediastinal or hilar masses or lymphadenopathy seen. No gross aortic or pulmonary artery finding suspected. Assessment is limited in the absence of IV contrast. No pericardial thickening or effusion. No chest wall mass or abnormal axillary lymphadenopathy. Sternotomy wires are in place. There is no b angie union at the sternum. This may be a recent surgery or fibrous union. Thoracic spine degenerative changes are present. IMPRESSION: Motion degraded study shows no consolidation or mass. Minimal left base atelectasis. Due to the motion, minimal degree of interstitial edema or infiltrate could be masked.
[2018-08-13] MEDS: ASPIRIN EC 81 MG TAB PO SCH (09:06)
[2018-08-13] MEDS: GABAPENTIN 300 MG CAP PO SCH (09:06)
[2018-08-13] MEDS: ENOXAPARIN 40 MG/0.4 ML SQ SCH (09:06)
--- NOTE | 2018-08-13 12:54 | EKG ---
Test Date: 2018-08-12 Test Time: 07:33:11 Tennis Professional: MADALYN MEASUREMENT RESULTS: Intervals: Rate: 73 MD: 156 QRSD: 154 QT: 448 QTc: 493 [place]: P: 59 MD: 156 QRS: -71 T: 45 INTERPRETIVE STATEMENTS: Normal sinus rhythm Left axis deviation Right bundle branch block Abnormal ECG Compared to ECG 08/11/2018 13:04:57 Sinus arrhythmia no longer present Myocardial infarct finding no longer present Electronically Signed On 08-13-18 12:52:34 CDT by Darci Hernandez
--- NOTE | 2018-08-13 13:00 | ECHO ---
HEIGHT: 5 ft 9 in WEIGHT: 215 lb 9.6 oz DATE OF STUDY: 08/13/[address]: Darci Hernandez MD 2-DIMENSIONAL: YES M.MODE: YES DOPPLER: YES COLOR FLOW: YES TDS: YES PORTABLE: NO DEFINITY: NO BUBBLE STUDY: NO DIAGNOSIS: CORONARY ARTERY DISEASE, HISTORY OF CORONARY ARTERY BYPASS CARDIAC HISTORY: CATHERIZATION: YES SURGERY: YES PROSTHETIC VALVE: NO PACEMAKER: NO MEASUREMENTS (cm) DIASTOLIC (NORMALS) SYSTOLIC (NORMALS) IVSd 1.0 (0.6-1.2) LA Diam 4.4 (1.9-4.0) LVEF 60% LVIDd 4.3 (3.5-5.7) LVIDs 3.0 (2.0-3.5) %FS 31% LVPWd 1.0 (0.6-1.2) Ao Diam 3.1 (2.0-3.7) 2 DIMENSIONAL ASSESSMENT: RIGHT ATRIUM: DILATED LEFT ATRIUM: DILATED RIGHT VENTRICLE: NORMAL LEFT VENTRICLE: NORMAL TRICUSPID VALVE: NORMAL MITRAL VALVE: NORMAL PULMONIC VALVE: NORMAL AORTIC VALVE: NORMAL PERICARDIAL EFFUSION: NONE AORTIC ROOT: NORMAL LEFT VENTRICULAR WALL MOTION: NORMAL. DOPPLER/COLOR FLOW: MILD MITRAL REGURGITATION AND TRICUSPID REGURGITATION. MODERATE PULMONARY HYPERTENSION. ESTIMATED RIGHT VENTRICULAR SYSTOLIC PRESSURE 52 MMHG. ESTIMATED RIGHT ATRIAL PRESSURE 15MMHG. COMMENTS: NORMAL LEFT VENTRICULAR EJECTION FRACTION. DILATED RIGHT AND LEFT ATRIUM. MILD MITRAL REGURGITATION AND TRICUSPID REGURGITATION. MODERATE PULMONARY HYPERTENSION. TECHNOLOGIST: TEDDY QUACH RD
--- NOTE | 2018-08-14 04:35 | DS ---
Date of Discharge: 08/13/2018 Disposition: Discharged to go home. Physical Examination: HEENT: Unremarkable. Lungs: Clear to auscultation. Heart: Sounds normal. Abdomen: Soft. Bowel sounds normal. No guarding, rigidity, tenderness, distention. Extremities: No leg edema. Hospital Course: This is a 67-year-old male patient admitted to the hospital after he presented to e mergency room with complaints of constipation. After he was evaluated in the ER, he was admitted to the hospital with diagnosis of chest pain and constipation. When I saw him, he did not report any ch est pain complaints at all. After I saw him, director of materials Dr. Hernandez evaluated him and he did not re port any other complaints but after Dr. Hernandez left, he reported to nurse that he had episode of juan antonio ting. So with that syncopal episode that he reported to nursing staff but did not report it to me or Dr. Hernandez, Dr. Hernandez recommended that the patient should get an echocardiogram done, which was don e today. Result was reviewed and has a normal ejection fraction, moderate pulmonary hypertension. Y esterday, I did obtain CAT scan of the chest without contrast, which was unremarkable for acute rodrigues es. The patient was discharged to go home in stable condition with instruction and medications as be low. Final Diagnoses: 1.Syncope. 2.Chest pain. 3.Constipation. 4.Coronary artery disease. 5.Hypertension. 6.Type 2 diabetes mellitus. 7.Hyperlipidemia. 8.Hypothyroidism. 9.Chronic kidney disease stage 3 to stage 4. 10.Chronic obstructive pulmonary disease. Discharge Advice And Medications: 1.Continue prior home medications. 2.Follow with cardiolodist, Dr. Hernandez/Dr. Moscoso in 1 to 2 weeks. 3.Follow up with your lung specialist Dr. Aguilera in [place] for your ongoing cough problem. 4.Follow up at my office per scheduled appointment. 5.Take bepb-nvd-nrjvula medication Senokot-S 2 tablets by mouth 2 times a day and if the constipatio n problem is not well controlled with Senokot-S then to add MiraLAX 17 g powder mixed with 8 ounce of water and drink it daily. ANNA/MODL Voice ID: [id number] Report ID: [id number]
== END 2018-08-13 16:30 | disposition home or self-care (01) ==
LOC: ER 12:03 → ERHOLD 15:58 → 4TH 17:00
PROVIDERS: ADMIT Internal Medicine; ATTEND Internal Medicine
DX: R07.9 Chest pain, unspecified (principal); R55 Syncope and collapse; I45.10 Unspecified right bundle-branch block; I08.1 Rheumatic disorders of both mitral and tricuspid valves; I27.20 Pulmonary hypertension, unspecified; R94.31 Abnormal electrocardiogram [ECG] [EKG]; K59.00 Constipation, unspecified; M47.816 Spondylosis without myelopathy or radiculopathy, lumbar region; M48.061 Spinal stenosis, lumbar region without neurogenic claudication; E78.5 Hyperlipidemia, unspecified; E03.9 Hypothyroidism, unspecified; E11.22 Type 2 diabetes mellitus with diabetic chronic kidney disease; I12.9 Hypertensive chronic kidney disease with stage 1 through stage 4 chronic kidney disease, or unspecified chronic kidney disease; N18.4 Chronic kidney disease, stage 4 (severe); I25.10 Atherosclerotic heart disease of native coronary artery without angina pectoris; I25.2 Old myocardial infarction; J44.9 Chronic obstructive pulmonary disease, unspecified; Z95.1 Presence of aortocoronary bypass graft
CPT/HCPCS: 93005 ×2; 93306; 85025 ×2; 80048 ×2; 36415; 83735; 85610; 80076; 81003; 84484 ×3; 83880 ×2; 71250; 76377; 74176; 71045; 94760 ×4; 96374; 99285; J1940; J1650; J2920 ×7; G0378 ×2

== ENCOUNTER 2018-09-29 15:19 | Emergency (ER) | payer OTHER ==
--- OUTSIDE RECORDS SUMMARY | 2018-09-29 15:26 | XMS REPORT | Continuity of Care Document ---
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 Problem 08/06/2018 [facility] CHEST PAIN, Active [facility] UNSPECIFIED Medications Medication Details Route Status Patient Ordering Order Source Instructions Provider Date lisinopril 2.5 2.5 mg=1 tab, PO, Active mg oral tablet Daily, # 30 tab, 2016 [facility] 0 Refill(s) AMIODarone 200 200 mg=1 tab, PO, Active mg oral tablet BID, please start 2016 [facility] this regimen after 1 week of 400 mg PO BID for 1 week, # 60 tab, 0 Refill(s) Acetaminophen 2 tab, PO, Q6H, Active 300 MG / PRN Pain Score 2016 [facility] Codeine 4-6, X 5 day, # Phosphate 30 MG 40 tab, 0 Oral Tablet Refill(s) [Tylenol with Codeine #3] 200 ACTUAT 2 puff, Active Albuterol 0.09 INHALATION, QID, 2016 MG/ACTUAT PRN for wheezing, Metered Dose # 25 gm, 0 Inhaler Refill(s) [Proventil] Advair Diskus 1 puff, Active 250 mcg-50 mcg INHALATION, BID, 2016 [facility] inhalation # 60 puff, 0 powder Refill(s) torsemide 10 mg 10 mg=1 tab, PO, Active oral tablet Daily, # 30 tab, 2016 [facility] 0 Refill(s) metoprolol 25 25 mg=1 tab, PO, Active mg oral tablet, Daily, # 30 tab, 2016 [facility] extended 0 Refill(s) release clopidogrel 75 75 mg=1 tab, PO, Active mg oral tablet Daily, # 30 tab, 2016 [facility] 0 Refill(s) atorvastatin 40 40 mg=1 tab, PO, Active mg oral tablet Bedtime, # 30 2016 tab, 0 Refill(s) aspirin 81 mg 81 mg=1 tab, PO, Active tablet, enteric Daily, # 100 tab, 2017 [facility] coated 0 Refill(s) 12 HR 600 mg=1 tab, PO, Active Guaifenesin 600 Q12H, PRN 2016 [facility] MG Extended Congestion, X 7 Release Tablet day, # 14 tab, 0 [Mucinex] Refill(s) Amiodarone 400 mg, 2 tab, Inactive Route: PO, Drug 2016 [facility] form: TAB, BID, Dosing Weight 111.384, kg, Priority: NOW, Start date: 06/30/16 7:15:00 CDT, Stop date: 07/14/16 17:00:00 CDTNotes: (Same as: Cordarone) torsemide 10 mg, 1 tab, No Longer Route: PO, Drug Active 2016 [facility] form: TAB, Daily, Dosing Weight 111.384, kg, Start date: 06/29/16 9:00:00 CDT, Duration: 30 day, Stop date: 07/28/16 9:00:00 CDTNotes: (Same As: Demadex) Amiodarone 200 mg, 1 tab, No Longer Route: PO, Drug Active 2016 [facility] form: TAB, TID, Dosing Weight 110.469, kg, Priority: NOW, Start date: 06/28/16 9:06:00 CDT, Duration: 30 day, Stop date: 07/28/16 9:00:00 CDTNotes: (Same as: Cordarone) metoprolol 25 mg, 1 tab, No Longer extended Route: PO, Drug Active 2016 [facility] release form: ERTAB, Daily, Start date: 06/28/16 9:00:00 CDT, Duration: 30 day, Stop date: 07/27/16 9:00:00 CDTNotes: (Same as: Toprol XL) Do Not Crush atorvastatin 40 mg, 1 tab, No Longer Route: PO, Drug Active 2016 [facility] form: TAB, Bedtime, Dosing Weight 103.653, kg, Start date: 06/27/16 21:00:00 CDT, Duration: 30 day, Stop date: 07/26/16 21:00:00 CDTNotes: (Same as: Lipitor) chlorhexidine 1 pkt, Route: No Longer gluconate 40 BATHE, Q-M-W-F, Active 2016 [facility] MG/ML Medicated Drug form: SOLN, Liquid Soap Start date: 06/27/16 9:00:00 CDT, Duration: 30 day, Stop date: 07/25/16 9:00:00 CDTNotes: (Same As: Hibiclens) Glucagon 1 mg, Route: IM, No Longer Drug form: Active 2016 [facility] PDR/INJ, PRN, Dosing Weight 103.653, kg, PRN Blood Glucose Results, Start date: 06/26/16 10:21:00 CDT, Duration: 30 day, Stop date: 07/26/16 10:20:00 CDT Dextrose 50% 25 gm, 50 mL, No Longer Syringe Route: IVP, Drug Active 2016 [facility] Form: INJ, Dosing Weight 103.653, kg, PRN, PRN Blood Glucose Results, Start date: 06/26/16 10:21:00 CDT, Duration: 30 day, Stop date: 07/26/16 10:20:00 CDT Insulin, 8 unit, 0.08 mL, No Longer Aspart, Human Route: SUB-Q, Active 2016 [facility] Drug form: SOLN, TID-Before Meals, [...] 2 mL, Inactive Route: IVP, Drug 2016 [facility] form: INJ, ONCE, Dosing Weight 103.653, kg, Priority: NOW, Start date: 06/26/16 7:30:00 CDT, Stop date: 06/26/16 7:30:00 CDTNotes: (Same as: Lasix) albumin human 12.5 gm, 250 mL, Inactive 5% intravenous 250 ml/hr, Route: 2016 [facility] solution IV, Drug Form: INJ, Dosing Weight 103.653, kg, ONCE, Start date: 06/26/16 7:30:00 CDT, Stop date: 06/26/16 7:30:00 CDTNotes: LOT#: Mfg: ___ WASTE: F/P - Red; E -Red (Same as: Albuminar) "blood product derivative" glucagon 1 mg, Route: INJ, No Longer Drug form: Active 2016 [facility] PDR/INJ, PRN, PRN Blood Glucose Results, Start date: 06/25/16 22:17:00 CDT, Duration: 30 day, Stop date: 07/25/16 22:16:00 CDT Dextrose 50% in 50 mL, Route: No Longer Water IV IVP, Start date: Active 2016 [facility] 06/25/16 22:17:00 CDT, Duration: 30 day, Stop date: 07/25/16 22:16:00 CDT, PRN Blood Glucose Results insulin aspart 10 unit, 0.1 mL, No Longer Route: SUB-Q, Active 2016 [facility] Drug form: SOLN, Sliding Scale, [...] No Longer Route: PO, Drug Active 2016 [facility] form: TAB, Bedtime, Dosing Weight 103.653, kg, Start date: 06/25/16 21:00:00 CDT, Duration: 30 day, Stop date: 07/24/16 21:00:00 CDTNotes: (Same As: Lipitor) Lovenox 40 mg, 0.4 mL, No Longer Route: SUB-Q, Active 2016 [facility] Drug form: INJ, [id number], Dosing Weight 103.653, kg, Start date: 06/25/16 20:00:00 CDT, Duration: 30 day, Stop date: 07/24/16 20:00:00 CDTNotes: (Same as: Lovenox) Dilaudid 0.5 mg, 0.5 mL, Inactive Route: IVP, Drug 2016 [facility] form: INJ, ONCE, Dosing Weight 103.653, kg, Priority: STAT, Start date: 06/25/16 18:54:00 CDT, Stop date: 06/25/16 18:54:00 CDT pantoprazole 40 mg, 1 tab, Inactive Route: PO, Drug 2016 [facility] form: ECTAB, Daily, Dosing Weight 103.653, kg, Start date: 06/25/16 9:00:00 CDT, Duration: 30 day, Stop date: 07/24/16 9:00:00 CDTNotes: Tablet should not be chewed or crushed. (Same as: Protonix) Mupirocin 0.02 1 appl, Route: No Longer MG/MG Topical NASAL, BID, Drug Active 2016 [facility] Ointment form: OINT, Start date: 06/25/16 9:00:00 CDT, Duration: 5 day, Stop date: 06/29/16 17:00:00 CDT clopidogrel 75 mg, 1 tab, No Longer Route: PO, Drug Active 2016 [facility] form: TAB, Daily, Dosing Weight 102.926, kg, Start date: 06/25/16 9:00:00 CDT, Duration: 30 day, Stop date: 07/24/16 9:00:00 CDTNotes: (Same As: Plavix) Aspirin 325 MG 325 mg, Route: No Longer Enteric Coated PO, Drug form: Active 2016 [facility] Tablet ECTAB, Daily, Dosing Weight 102.926, kg, Start date: 06/25/16 9:00:00 CDT, Duration: 30 day, Stop date: 07/24/16 9:00:00 CDT heparin 5,000 unit, 1 mL, Inactive Route: SUB-Q, 2016 [facility] Drug form: INJ, Q8H, Dosing Weight 103.653, kg, Start date: 06/25/16 8:00:00 CDT, Duration: 30 day, Stop date: 07/25/16 0:00:00 CDTNotes: porcine heparin vancomycin 1.5 gm, 250 mL, Inactive Route: IVPB, Drug 2016 [facility] form: INJ, [id number], Start date: 06/25/16 1:30:00 CDT, Duration: 2 doses or times, Stop date: 06/25/16 13:30:00 CDTNotes: TIME CRITICAL MEDICATION Same as: Vancocin-NS (premixed) Infusion rate 2001 mg: infuse over 2.5 hours cefuroxime + 1.5 gm, Route: Inactive sodium chloride IVPB, [id number], 2016 [facility] 0.9% INJ 100 mL Dosing Weight 103.653, kg, Start date: 06/25/16 1:00:00 CDT, Duration: 3 doses or times, Stop date: 06/25/16 17:00:00 CDTNotes: (Same As: Kefurox, Zinacef) MEDICATION WASTE Product Size: 1500 mg Product Wasted: ___ mg Vancomycin 1,554.795 mg, Inactive Route: IVPB, Drug 2016 [facility] form: INJ, Q12H, Dosing Weight 103.653, kg, Time Critical Medication, Start date: 06/24/16 21:00:00 CDT, Duration: 2 doses or times, Stop date: 06/25/16 9:00:00 CDT chlorhexidine 15 ml, Route: No Longer gluconate 1.2 S&SPIT, Q12H, Active 2016 [facility] MG/ML Mouthwash Drug form: LIQ, Start date: 06/24/16 21:00:00 CDT, Duration: 2 week, Stop date: 07/08/16 9:00:00 CDTNotes: (Same As: Peridex) Aspirin 325 MG 325 mg, 1 tab, No Longer Oral Tablet Route: NG, Drug Active 2016 [facility] form: TAB, Daily, Dosing Weight 102.926, kg, Start date: 06/24/16 21:00:00 CDT, Duration: 30 day, Stop date: 07/24/16 9:00:00 CDTNotes: Take with food. EPINEPHrine 4 246 mL, Rate: No Longer mg + sodium Titrate, Route: Active 2016 [facility] chloride 0.9% IV, Dosing Weight INJ 246 mL 103.653 kg, Total Volume: 250, Start date: 06/24/16 18:38:00 CDT, Duration: 30 day, Stop date: 07/24/16 18:37:00 CDTNotes: (Same as: Adrenalin) Suremed - Injectable drug used as inhalation treatment. MEDICATION WASTE Product Size: 1 mg Product Wasted: ___ mg insulin aspart 14 unit, 0.14 mL, No Longer Route: SUB-Q, Active 2016 [facility] Drug form: SOLN, Sliding Scale, [...] mL, No Longer Route: SUB-Q, Active 2016 [facility] Drug form: SOLN, Sliding Scale, [...] Longer unit-NS 100mL Rate: Titrate, Active 2016 [facility] 100 unit Dosing Weight 103.653, kg, Route: IV, Total Volume: 100, Start Date: 06/24/16 18:35:00 CDT, Duration: 30 day, Stop date: 07/24/16 18:34:00 CDT, Replace Every: 24 hrNotes: Final Concentration 1unit/1ml WASTE: F/P - Black; E - Municipal Trash Bin insulin reg 100 100 unit, 100 mL, Inactive unit-NS 100mL Rate: Titrate, 2016 [facility] 100 unit Dosing Weight 103.653, kg, Route: IV, Total Volume: 100, Start Date: 06/24/16 18:34:00 CDT, Duration: 30 day, Stop date: 07/24/16 18:33:00 CDT, Replace Every: 24 hrNotes: Final Concentration 1unit/1ml WASTE: F/P - Black; E - Municipal Trash Bin albuterol 2.49 mg, 3 mL, No Longer Route: NEB, Drug Active 2016 [facility] form: SOLN, PRN, PRN Respiratory Protocol, Start date: 06/24/16 18:16:00 CDT, Stop date: 07/24/16 18:15:00 CDTNotes: SEE RT DOCUMENTATION (Same as: Proventil) Fentanyl 600 microgram, 30 No Longer mL, Route: IV, Active 2016 [facility] [employer] Dose: 10 mcg, [employer] Lockout: 10 minutes, Continuous Basal Rate: 0 mg, 4 Hour Limit (In MCG): 240, Drug Form: INJ, Continuous, Start date: 06/24/16 18:00:00 CDT, Duration: 30 day, Stop date: 07/24/16 17:59:00 CDTNotes: Concentration is 20 micrograms/ml metoprolol 12.5 mg, 0.5 tab, No Longer tartrate Route: PO, Drug Active 2016 [facility] form: TAB, Q6H, Dosing Weight 102.926, kg, Start date: 06/24/16 18:00:00 CDT, Duration: 30 day, Stop date: 07/24/16 12:00:00 CDTNotes: (Same as: Lopressor) Cefuroxime 1.5 gm, Route: Inactive IVPB, ABXQ8H, 2016 [facility] Dosing Weight 103.653, kg, Start date: 06/24/16 18:00:00 CDT, Duration: 3 doses or times, Stop date: 06/25/16 10:00:00 CDTNotes: (Same As: Kefurox, Zinacef) MEDICATION WASTE Product Size: 1500 mg Product Wasted: ___ mg PHOS-NaK 2 pkt, Route: PO, No Longer Drug Form: Active 2016 [facility] PDR/REC, Dosing Weight 103.653, kg, PRN, PRN Abnormal Lab Result, FOR ICU USE ONLY, Start date: 06/24/16 17:44:00 CDT, Duration: 30 day, Stop date: 07/24/16 17:43:00 CDTNotes: (Same as: Phos-NaK) Each 1.5 gm pkt has 250mg phosphorous. Mix w/2.5oz water and stir. potassium 45 mmol, 15 mL, No Longer phosphate + Route: IVPB, PRN, Active 2016 [facility] sodium chloride Dosing Weight 0.9% INJ 250 mL 103.653, kg, PRN Abnormal Lab Result, Start date: 06/24/16 17:44:00 CDT, Duration: 30 day, Stop date: 07/24/16 17:43:00 CDT, FOR ICU USE ONLYNotes: (Same as: K Phosphate.) 1 mMol phoshate has 1.47 mEq potassium Infuse over 4 hours Calcium 1 gm, 50 mL, No Longer Gluconate Route: IVPB, Drug Active 2016 [facility] form: INJ, PRN, Dosing Weight 103.653, kg, PRN Abnormal Lab Result, Start date: 06/24/16 17:44:00 CDT, Duration: 30 day, Stop date: 07/24/16 17:43:00 CDT, FOR ICU USE ONLYNotes: WASTE: F/P - Sink; E - Municipal Trash Bin Magnesium Oxide 800 mg, 2 tab, No Longer Route: PO, Drug Active 2016 [facility] form: TAB, PRN, Dosing Weight 103.653, kg, PRN Abnormal Lab Result, FOR ICU USE ONLY, Start date: 06/24/16 17:44:00 CDT, Duration: 30 day, Stop date: 07/24/16 17:43:00 CDTNotes: (Same as: Mag-Ox 400) Magnesium oxide [id number] elemental magnesium Dose=____mg magnesium oxide (___mg elemental magnesium) Magnesium 2 gm, 50 mL, No Longer Sulfate Route: IVPB, Drug Active 2016 [facility] form: INJ, PRN, Dosing Weight 103.653, kg, PRN Abnormal Lab Result, Start date: 06/24/16 17:44:00 CDT, Duration: 30 day, Stop date: 07/24/16 17:43:00 CDT, FOR ICU USE ONLYNotes: WASTE: F/P - Sink; E - Municipal Trash Bin potassium 20 mEq, 15 mL, No Longer chloride Route: NJ, Drug Active 2016 [facility] form: LIQ, PRN, Dosing Weight 103.653, kg, PRN Abnormal Lab Result, Start date: 06/24/16 17:44:00 CDT, Duration: 30 day, Stop date: 07/24/16 17:43:00 CDT, FOR ICU USE ONLYNotes: (Same as: Potassium Chloride) Calcium 1,000 mg, 2 tab, No Longer Carbonate 500 Route: CHEW, Drug Active 2016 [facility] Chewable form: CHEWTAB, Tablet PRN, Dosing Weight 103.653, kg, PRN Abnormal Lab Result, FOR ICU USE ONLY, Start date: 06/24/16 17:44:00 CDT, Duration: 30 day, Stop date: 07/24/16 17:43:00 CDTNotes: (Same As: Tums) Calcium Carbonate 500 pb=592 mg elemental calcium Dose= mg calcium carbonate ( mg elemental calcium) Insulin, 3 unit, 0.03 mL, Inactive Aspart, Human Route: SUB-Q, 2016 [facility] Drug form: SOLN, TID-Before Meals, [...] phosphate + Route: IVPB, PRN, Active 2016 [facility] sodium chloride Dosing Weight 0.9% INJ 250 mL 103.653, kg, PRN Abnormal Lab Result, Start date: 06/24/16 17:44:00 CDT, Duration: 30 day, Stop date: 07/24/16 17:43:00 CDT, FOR ICU USE ONLY potassium 15 mmol, 250 mL, No Longer phosphate Route: IVPB, Drug Active 2016 [facility] form: INJ, PRN, Dosing Weight 103.653, kg, PRN Abnormal Lab Result, Start date: 06/24/16 17:44:00 CDT, Duration: 30 day, Stop date: 07/24/16 17:43:00 CDT, FOR ICU USE ONLYNotes: (Same as: K Phosphate) sodium 15 mmol, 250 mL, No Longer phosphate Route: IVPB, Drug Active 2016 [facility] form: INJ, PRN, Dosing Weight 103.653, kg, PRN Abnormal Lab Result, Start date: 06/24/16 17:44:00 CDT, Duration: 30 day, Stop date: 07/24/16 17:43:00 CDT, FOR ICU USE ONLY Naloxone 0.04 mg, 0.1 mL, No Longer Route: IVP, Drug Active 2016 [facility] form: INJ, Q2MIN, Dosing Weight 103.653, kg, PRN Narcotic Reversal, Start date: 06/24/16 17:44:00 CDT, Duration: 30 day, Stop date: 07/24/16 17:43:00 CDTNotes: Same as Narcan Saline Flush 10 ml, Route: No Longer 0.9% IVP, Drug Form: Active 2016 [facility] INJ, Dosing Weight 103.653, kg, PRN, PRN Line Flush, Start date: 06/24/16 17:44:00 CDT, Duration: 30 day, Stop date: 07/24/16 17:43:00 CDTNotes: (Same as: BD Posiflush) Dulcolax 10 mg, 1 supp, No Longer Laxative Route: IA, Drug Active 2016 [facility] form: SUPP, Daily, Dosing Weight 102.926, kg, PRN Constipation, Start date: 06/24/16 17:44:00 CDT, Duration: 30 day, Stop date: 07/24/16 17:43:00 CDTNotes: (Same As: Dulcolax, Bisco-Lax) Lactulose 667 20 gm, 30 mL, No Longer MG/ML Oral Route: PO, Drug Active 2016 [facility] Solution form: SYRP, Daily, Dosing Weight 102.926, kg, PRN as needed for constipation, Start date: 06/24/16 17:44:00 CDT, Duration: 30 day, Stop date: 07/24/16 17:43:00 CDTNotes: (Same as:Chronulac) albumin human 12.5 gm, 250 mL, No Longer 5% intravenous 500 ml/hr, Route: Active 2017 [facility] solution IVPB, Drug Form: INJ, Dosing Weight 102.926, kg, ONCE, PRN Hypotension, Start date: 06/24/16 17:44:00 CDTNotes: LOT#: Mfg: ___ WASTE: F/P - Red; E -Red (Same as: Albuminar) "blood product derivative" Acetaminophen 1 tab, Route: PO, No Longer 300 MG / Drug Form: TAB, Active 2016 [facility] Codeine Dosing Weight Phosphate 30 MG 102.926, kg, Q6H, Oral Tablet PRN Pain Score [Tylenol with 1-3, Start date: Codeine #3] 06/24/16 17:44:00 CDT, Duration: 30 day, Stop date: 07/24/16 17:43:00 CDTNotes: Do not exceed 4gm/day of acetaminophen. (Same as: Tylenol with Codeine # 3) Zofran 4 mg, 2 mL, No Longer Route: IVP, Drug Active 2016 [facility] form: INJ, Q8H, Dosing Weight 102.926, kg, PRN Nausea, Start date: 06/24/16 17:44:00 CDT, Duration: 30 day, Stop date: 07/24/16 17:43:00 CDTNotes: (Same as: Zofran) MEDICATION WASTE Product Size: 4 mg Product Wasted: ___ mg Xopenex 1.25 mg, Route: Inactive NEB, PRN, Dosing 2016 [facility] Weight 102.926, kg, PRN Respiratory Protocol, Start date: 06/24/16 17:44:00 CDT, Duration: 30 day, Stop date: 07/24/16 17:43:00 CDT Morphine 8 mg, 2 mL, No Longer Route: IM, Drug Active 2016 [facility] form: INJ, Q3H, Dosing Weight 102.926, kg, PRN Pain Score 7-10, Start date: 06/24/16 17:44:00 CDT, Duration: 30 day, Stop date: 07/24/16 17:43:00 CDTNotes: (Same as:MORPhine Sulfate) Albuterol 0.833 3 ml, Route: NEB, No Longer MG/ML / Drug Form: SOLN, Active 2016 [facility] Ipratropium Dosing Weight Temperance 0.167 103.653, kg, PRN, MG/ML Inhalant PRN Respiratory Solution Protocol, Start date: 06/24/16 17:44:00 CDT, Duration: 30 day, Stop date: 07/24/16 17:43:00 CDTNotes: (Same as: Duoneb) Glucagon 1 mg, Route: IM, No Longer Drug form: Active 2016 [facility] PDR/INJ, PRN, Dosing Weight 103.653, kg, PRN Blood Glucose Results, Start date: 06/24/16 17:44:00 CDT, Duration: 30 day, Stop date: 07/24/16 17:43:00 CDT Nitroglycerin 0.4 mg, 1 tab, No Longer Route: SL, Drug Active 2016 [facility] form: TAB, Q5Min, Dosing Weight 103.653, kg, PRN Chest Pain, Start date: 06/24/16 17:44:00 CDT, Duration: 3 doses or times, Stop date: Limited # of timesNotes: (Same as:Nitroquick, Nitrostat) "Do Not Crush" Sublingual tablet Docusate 100 mg, 1 cap, No Longer Route: PO, Drug Active 2016 [facility] form: CAP, BID, Dosing Weight 103.653, kg, PRN Constipation, Start date: 06/24/16 17:44:00 CDT, Duration: 30 day, Stop date: 07/24/16 17:43:00 CDTNotes: (Same as: Colace) (Do Not Crush) Ondansetron 4 mg, 2 mL, Inactive Route: IVP, Drug 2016 [facility] form: INJ, Q8H, Dosing Weight 103.653, kg, PRN Nausea & Vomiting, Start date: 06/24/16 17:44:00 CDT, Duration: 30 day, Stop date: 07/24/16 17:43:00 CDTNotes: (Same as: Zomuna) MEDICATION WASTE Product Size: 4 mg Product Wasted: ___ mg Dextrose 50% 25 gm, 50 mL, No Longer Syringe Route: IVP, Drug Active 2016 [facility] Form: INJ, Dosing Weight 103.653, kg, PRN, PRN Blood Glucose Results, Start date: 06/24/16 17:44:00 CDT, Duration: 30 day, Stop date: 07/24/16 17:43:00 CDT Acetaminophen 650 mg, 2 tab, No Longer Route: PO, Drug Active 2016 [facility] form: TAB, Q4H, Dosing Weight 103.653, kg, PRN Pain 1-3/Temp > 100.4 F, Start date: 06/24/16 17:44:00 CDT, Duration: 30 day, Stop date: 07/24/16 17:43:00 CDTNotes: Do not exceed 4 gm/day. (Same as: Tylenol) vasopressin Route: IV, Drug Inactive 06/24/ MH (ANES) form: INJ, ONCE, 2016 [facility] Stop date: 06/24/16 17:40:00 CDT ondansetron Route: IV, Drug Inactive 06/24/ MH (ANES) form: INJ, ONCE, 2016 [facility] Stop date: 06/24/16 17:23:00 CDT protamine Route: IV, Drug Inactive 06/24/ MH (ANES) form: INJ, ONCE, 2016 Stop date: 06/24/16 17:03:00 CDT calcium Route: IV, Drug Inactive MH chloride (ANES) form: INJ, ONCE, 2016 [facility] Stop date: 06/24/16 16:48:00 CDT nitroglycerin Route: IV, Drug Inactive 06/24/ MH (ANES) form: INJ, ONCE, 2016 Stop date: 06/24/16 15:17:00 CDT heparin (ANES) Route: IV, Drug Inactive 06/24/ MH form: INJ, ONCE, 2016 Stop date: 06/24/16 15:07:00 CDT fentaNYL (ANES) Route: IV, Drug Inactive 06/24/ MH form: INJ, ONCE, 2016 [facility] Stop date: 06/24/16 14:31:00 CDT ePHEDrine Route: IV, Drug Inactive 06/24/ MH (ANES) form: INJ, ONCE, 2016 Stop date: 06/24/16 14:11:00 CDT cefuroxime Route: IV, Drug Inactive 06/24/ MH (ANES) form: INJ, ONCE, 2016 [facility] Stop date: 06/24/16 14:11:00 CDT rocuronium Route: IV, Drug Inactive 06/24/ MH (ANES) form: INJ, ONCE, 2016 [facility] Stop date: 06/24/16 14:06:00 CDT propofol (ANES) Route: IV, Drug Inactive 06/24/ MH form: INJ, ONCE, 2016 [facility] Stop date: 06/24/16 14:06:00 CDT Amicar (ANES) Route: IV, Drug Inactive MH (ANES) + form: INJ, Dosing 2016 [facility] Weight 103.7, kg, Start date: 06/24/16 13:35:00 CDT, Stop date: 06/24/16 14:35:00 CDT vancomycin Route: IV, Drug Inactive MH (ANES) (ANES) form: INJ, Start 2016 [facility] date: 06/24/16 13:29:00 CDT, Stop date: 06/24/16 14:29:00 CDT midazolam Route: IV, Drug Inactive MH (ANES) form: SOLN, ONCE, 2016 [facility] Stop date: 06/24/16 13:11:00 CDT morphine Route: IV, Drug Inactive Sulfate (ANES) form: INJ, ONCE, 2016 [facility] Stop date: 06/24/16 13:11:00 CDT Isolyte S (PH Route: IV, Total Inactive MH 7.4) 1000 mL Volume: 1,000, 2016 [facility] (ANES) Start date: 06/24/16 12:39:00 CDT, Stop date: 06/24/16 13:39:00 CDT sodium chloride 1,000 mL, Rate: No Longer MH 0.9% 1000 ml 125 ml/hr, Infuse Active 2016 [facility] INJ 1,000 mL over: 8 hr, Route: IV, Dosing Weight 99.563 kg, Total Volume: 1,000, Start date: 06/22/16 7:35:00 CDT, Duration: 30 day, Stop date: 07/22/16 7:34:00 CDT Sodium Chloride 250 mL, 250 Inactive MH 0.154 MEQ/ML ml/hr, Infuse 2017 [facility] Injectable Over: 1 hr, Solution Route: IV, 250, Drug form: INJ, ONCE, Priority: STAT, Dosing Weight 99.563 kg, Start date: 06/22/16 7:34:00 CDT, Duration: 1 doses or times, Stop date: 06/22/16 7:34:00 CDT sodium chloride 1,000 mL, Rate: Inactive 06/22/ MH 0.9% 1000 ml 125 ml/hr, Infuse 2017 [facility] INJ 1,000 mL over: 8 hr, Route: IV, Dosing Weight 99.563 kg, Total Volume: 1,000, Start date: 06/22/16 7:19:00 CDT, Duration: 30 day, Stop date: 07/22/16 7:18:00 CDT Lopressor 50 mg, 1 tab, No Longer Route: PO, Drug Active 2016 [facility] form: TAB, BID, Dosing Weight 102.926, kg, Start date: 06/19/16 18:00:00 CDT, Duration: 30 day, Stop date: 07/19/16 17:00:00 CDTNotes: (Same as: Lopressor) Lopressor 50 mg, 1 tab, Inactive Route: PO, Drug 2016 [facility] form: TAB, Q8Hnow, Dosing Weight 102.926, kg, Start date: 06/19/16 17:00:00 CDT, Duration: 30 day, Stop date: 07/19/16 9:00:00 CDTNotes: (Same as: Lopressor) Levemir 10 unit, 0.1 mL, No Longer Route: SUB-Q, Active 2016 [facility] Drug form: INJ, Bedtime, Dosing Weight 102.926, kg, Start date: 06/17/16 21:00:00 CDT, Duration: 30 day, Stop date: 07/16/16 21:00:00 CDTNotes: Same as Levemir Do not hold insulin without contacting prescriber WASTE: F/P - Black; E - [employer]ash [employer] "single patient use only" Saline Flush 10 ml, Route: No Longer 0.9% IVP, Drug Form: Active 2016 [facility] INJ, Dosing Weight 102.926, kg, Q12H, Start date: 06/17/16 21:00:00 CDT, Duration: 30 day, Stop date: 07/17/16 9:00:00 CDTNotes: (Same as: BD Posiflush) chlorhexidine 15 ml, Route: No Longer gluconate 1.2 S&SPIT, BID, Drug Active 2016 [facility] MG/ML Mouthwash form: LIQ, Start date: 06/17/16 20:00:00 CDT, Duration: 30 day, Stop date: 07/17/16 17:00:00 CDTNotes: (Same As: Peridex) Cefazolin 2 gm, 100 mL, No Longer Route: IVPB, Drug Active 2016 [facility] form: INJ, ONCALL, Dosing Weight 102.926, kg, Start date: 06/17/16 19:00:00 CDT, Duration: 30 day, Stop date: 07/17/16 18:59:00 CDTNotes: Same as: Ancef Mupirocin 0.02 1 appl, Route: No Longer MG/MG Topical NASAL, ONCALL, Active 2016 [facility] Ointment Drug form: OINT, Start date: 06/17/16 19:00:00 CDT, Duration: 30 day, Stop date: 07/17/16 18:59:00 CDT sodium chloride 250 mL, Rate: On No Longer 0.9% INJ 250 mL call for use with Active 2016 [facility] blood product administration, Dosing Weight 102.926, kg, Route: IV, Total Volume: 250, Start Date: 06/17/16 18:54:00 CDT, Duration: 30 day, Stop date: 07/17/16 18:53:00 CDT, Replace Every: 24 hr Saline Flush 10 ml, Route: No Longer 0.9% IVP, Drug Form: Active 2016 [facility] INJ, Dosing Weight 102.926, kg, PRN, PRN Line Flush, Start date: 06/17/16 18:54:00 CDT, Duration: 30 day, Stop date: 07/17/16 18:53:00 CDTNotes: (Same as: BD Posiflush) metoprolol 12.5 mg, Route: Inactive tartrate PO, Drug form: 2016 [facility] TAB, Q12H, Dosing Weight 102.926, kg, Priority: NOW, Start date: 06/17/16 18:54:00 CDT, Duration: 30 day, Stop date: 07/17/16 9:00:00 CDT Nitroglycerin 1 inch, Route: No Longer 0.02 MG/MG TOP, Drug Form: Active 2016 [facility] Topical OINT, Dosing Ointment Weight 102.926, kg, Q6H, Start date: 06/17/16 12:00:00 CDT, Duration: 30 day, Stop date: 07/17/16 6:00:00 CDTNotes: 1 gram is approximately 1 inch of nitroglycerin ointment (20 mg NTG per gram) (Same as:Nitro-Bid) Enoxaparin 100 mg, 1 mL, No Longer Route: SUB-Q, Active 2016 [facility] Drug form: INJ, [id number], Dosing Weight 102.926, kg, Start date: 06/17/16 9:00:00 CDT, Duration: 30 day, Stop date: 07/16/16 21:00:00 CDTNotes: Nurse to ensure documentation of patient education per anticoagulation policy. (Same as: Lovenox) Albuterol 0.833 3 mL, Route: NEB, No Longer MG/ML / Drug Form: SOLN, Active 2016 [facility] Ipratropium Dosing Weight Temperance 0.167 102.926, kg, MG/ML Inhalant RQ6H, Start date: Solution 06/16/16 20:00:00 [DuoNeb] CDT, Duration: 30 day, Stop date: 07/16/16 14:00:00 CDTNotes: (Same as: Duoneb) Budesonide 0.25 0.5 mg, 2 mL, No Longer MG/ML Inhalant Route: NEB, Drug Active 2016 [facility] Solution form: SUSP, [Pulmicort] RQ12H, Dosing Weight 102.926, kg, Start date: 06/16/16 18:32:00 CDT, Duration: 30 day, Stop date: 07/16/16 16:00:00 CDTNotes: (Same As: Pulmicort) Solu-Medrol 80 mg, 1.28 mL, Inactive Route: IVP, Drug 2016 [facility] form: INJ, ONCE, Dosing Weight 102.926, kg, Start date: 06/16/16 18:12:00 CDT, Stop date: 06/16/16 18:12:00 CDTNotes: (Same as:Solu-MEDROL, A-Methapred) Lovenox 100 mg, 1 mL, Inactive Route: SUB-Q, 2016 [facility] Drug form: INJ, ONCE, Dosing Weight 102.926, kg, Start date: 06/16/16 18:00:00 CDT, Stop date: 06/16/16 18:00:00 CDTNotes: Nurse to ensure documentation of patient education per anticoagulation policy. (Same as: Lovenox) Sodium Chloride 250 mL, 250 No Longer 0.154 MEQ/ML ml/hr, Infuse Active 2016 [facility] Injectable Over: 1 hr, Solution Route: IV, 250, Drug form: INJ, ONCALL, Priority: Routine, Dosing Weight 102.926 kg, Start date: 06/16/16 17:00:00 CDT, Duration: 1 doses or times Sodium Chloride 750 mL, Rate: 75 Inactive 0.154 MEQ/ML ml/hr, Infuse 2016 [facility] Injectable over: 10 hr, Solution Route: IV, Dosing Weight 102.926 kg, Total Volume: 750, Start date: 06/16/16 16:15:00 CDT, Stop date: 06/17/16 16:14:00 CDT acetaminophen-c 1 tab, Route: PO, No Longer odeine #3 Drug Form: TAB, Active 2016 [facility] Dosing Weight 102.926, kg, Q4H, PRN Pain Score 4-6, Start date: 06/16/16 16:11:00 CDT, Duration: 30 day, Stop date: 07/16/16 16:10:00 CDTNotes: Do not exceed 4gm/day of acetaminophen. (Same as: Tylenol with Codeine # 3) Acetaminophen 650 mg, 2 tab, No Longer Route: PO, Drug Active 2016 [facility] form: TAB, Q4H, Dosing Weight 102.926, kg, PRN Pain Score 7-10, Start date: 06/16/16 16:11:00 CDT, Duration: 30 day, Stop date: 07/16/16 16:10:00 CDTNotes: Do not exceed 4 gm/day. (Same as: Tylenol) Sodium Chloride 500 mL, Rate: 150 Inactive 0.154 MEQ/ML ml/hr, Infuse 2016 [facility] Injectable over: 3.3 hr, Solution Route: IV, Dosing Weight 102.926 kg, Total Volume: 500, Start date: 06/16/16 16:11:00 CDT, Stop date: 06/16/16 20:10:00 CDT Sodium Chloride 250 mL, Route: No Longer 0.9% IV IVPB, Start date: Active 2016 [facility] 06/16/16 15:49:00 CDT, Duration: 30 day, Stop date: 07/16/16 15:48:00 CDT, PRN Line Flush Dextrose 50% 25 gm, 50 mL, No Longer Syringe Route: IVP, Drug Active 2016 [facility] Form: INJ, Dosing Weight 102.926, kg, PRN, PRN Blood Glucose Results, Start date: 06/16/16 15:45:00 CDT, Duration: 30 day, Stop date: 07/16/16 15:44:00 CDT Insulin, 5 unit, 0.05 mL, No Longer Aspart, Human Route: SUB-Q, Active 2016 [facility] Drug form: SOLN, TID-Before Meals, [...] IM, No Longer Drug form: Active 2016 [facility] PDR/INJ, PRN, Dosing Weight 102.926, kg, PRN Blood Glucose Results, Start date: 06/16/16 15:45:00 CDT, Duration: 30 day, Stop date: 07/16/16 15:44:00 CDT Sodium Chloride 1,000 mL, Rate: Inactive 0.154 MEQ/ML 100 ml/hr, Infuse 2016 [facility] Injectable over: 10 hr, Solution Route: IV, Dosing Weight 102.926 kg, Total Volume: 1,000, Start date: 06/16/16 9:19:00 CDT, Duration: 30 day, Stop date: 07/16/16 9:18:00 CDT aspirin 81 mg 81 mg, 1 tab, No Longer tablet, enteric Route: PO, Drug Active 2016 [facility] coated form: ECTAB, Daily, Dosing Weight 102.926, kg, Start date: 06/16/16 9:00:00 CDT, Duration: 30 day, Stop date: 07/15/16 9:00:00 CDTNotes: Do not crush or chew. (Same As: Ecotrin) Nitroglycerin 0.5 inch, Route: Inactive 0.02 MG/MG TOP, Drug Form: 2016 [facility] Topical OINT, Dosing Ointment Weight 102.926, kg, TID, Start date: 06/16/16 6:00:00 CDT, Duration: 30 day, Stop date: 07/15/16 18:00:00 CDTNotes: 1 gram is approximately 1 inch of nitroglycerin ointment (20 mg NTG per gram) (Same as:Nitro-Bid) metoprolol 50 mg, 1 tab, No Longer tartrate Route: PO, Drug Active 2016 [facility] form: TAB, Q8H, Dosing Weight 102.926, kg, Start date: 06/16/16 0:00:00 CDT, Duration: 30 day, Stop date: 07/15/16 16:00:00 CDTNotes: (Same as: Lopressor) Sodium Chloride 250 mL, 250 Inactive 0.154 MEQ/ML ml/hr, Infuse 2016 [facility] Injectable Over: 1 hr, Solution Route: IV, 250, Drug form: INJ, ONCALL, Priority: Routine, Dosing Weight 102.926 kg, Start date: 06/15/16 22:00:00 CDT, Duration: 1 doses or times Sodium Chloride 750 mL, Rate: 75 No Longer 0.154 MEQ/ML ml/hr, Infuse Active 2016 [facility] Injectable over: 10 hr, Solution Route: IV, Dosing Weight 102.926 kg, Total Volume: 750, Start date: 06/15/16 21:02:00 CDT, Duration: 24 hr, Stop date: 06/16/16 21:01:00 CDT Saline Flush 10 ml, Route: No Longer 0.9% IVP, Drug Form: Active 2016 [facility] INJ, Dosing Weight 102.926, kg, Q12H, Start date: 06/15/16 21:00:00 CDT, Duration: 30 day, Stop date: 07/15/16 9:00:00 CDTNotes: (Same as: BD Posiflush) atorvastatin 40 mg, 1 tab, No Longer Route: PO, Drug Active 2016 [facility] form: TAB, Bedtime, Dosing Weight 102.926, kg, Start date: 06/15/16 21:00:00 CDT, Duration: 30 day, Stop date: 07/14/16 21:00:00 CDTNotes: (Same as: Lipitor) metoprolol 25 mg, Route: PO, Inactive tartrate Drug form: TAB, 2016 [facility] Q12H, Dosing Weight 102.926, kg, Start date: 06/15/16 21:00:00 CDT, Duration: 30 day, Stop date: 07/15/16 9:00:00 CDT Enoxaparin 100 mg, 1 mL, No Longer Route: SUB-Q, Active 2016 [facility] Drug form: INJ, [id number], Dosing Weight 102.926, kg, Start date: 06/15/16 19:00:00 CDT, Duration: 30 day, Stop date: 07/15/16 7:00:00 CDTNotes: Nurse to ensure documentation of patient education per anticoagulation policy. (Same as: Lovenox) Albuterol 0.833 3 ml, Route: NEB, No Longer MG/ML / Drug Form: SOLN, Active 2016 [facility] Ipratropium Dosing Weight Temperance 0.167 102.926, kg, PRN, MG/ML Inhalant PRN Respiratory Solution Protocol, Start [DuoNeb] date: 06/15/16 13:56:00 CDT, Duration: 30 day, Stop date: 07/15/16 13:55:00 CDTNotes: (Same as: Duoneb) Saline Flush 10 ml, Route: No Longer 0.9% IVP, Drug Form: Active 2016 [facility] INJ, Dosing Weight 102.926, kg, PRN, PRN Line Flush, Start date: 06/15/16 13:52:00 CDT, Duration: 30 day, Stop date: 07/15/16 13:51:00 CDTNotes: (Same as: BD Posiflush) Labetalol 20 mg, 4 mL, No Longer Route: IVP, Drug Active 2016 [facility] form: INJ, Q4H, Dosing Weight 102.926, kg, PRN Hypertension, Start date: 06/15/16 13:52:00 CDT, Duration: 30 day, Stop date: 07/15/16 13:51:00 CDT, for SBP>180 or DBP>110, hold if HRNotes: (Same as: Normodyne, Trandate) Push over 2 minutes Give bolus over 2-3 minutes. Trazodone 50 mg, 1 tab, No Longer Hydrochloride Route: PO, Drug Active 2016 [facility] 50 MG Oral form: TAB, Tablet Bedtime, Dosing Weight 102.926, kg, PRN Insomnia, Start date: 06/15/16 13:52:00 CDT, Duration: 30 day, Stop date: 07/15/16 13:51:00 CDTNotes: (Same As: Desyrel) Miralax 17 gm, 1 pkt, No Longer Route: PO, Drug Active 2016 [facility] form: PWDR, Daily, Dosing Weight 102.926, kg, PRN Constipation, Start date: 06/15/16 13:52:00 CDT, Duration: 30 day, Stop date: 07/15/16 13:51:00 CDTNotes: Dissolve in 8 oz of water or juice. (Same as: Miralax) Nitroglycerin 0.4 mg, 1 tab, No Longer Route: SL, Drug Active 2016 [facility] form: TAB, Q5Min, Dosing Weight 102.926, kg, PRN Chest Pain, Start date: 06/15/16 13:52:00 CDT, Duration: 3 doses or times, Stop date: Limited # of timesNotes: (Same as:Nitroquick, Nitrostat) "Do Not Crush" Sublingual tablet Morphine 1 mg, 0.5 mL, No Longer Route: IVP, Drug Active 2016 [facility] form: INJ, Q2H, Dosing Weight 102.926, kg, PRN Chest Pain, Start date: 06/15/16 13:52:00 CDT, Duration: 2 doses or times, Stop date: Limited # of timesNotes: (Same as:MORPhine Sulfate) Ondansetron 4 mg, 1 tab, No Longer Route: PO, Drug Active 2016 [facility] form: TAB, Q8H, Dosing Weight [...] Comments Source Given pneumococcal Right completed [employer] 13-valent 7 deltoid Group, vaccine [facility] Results Order Name Results Value Reference Date Interpretation Comments Source Range CHEM PANEL eGFR 69 06/30 Result Comment: The [facility] eGFR is calculated using the CKD-EPI formula. In most young, healthy individuals the eGFR will be >90 mL/min/1.73m2 . The eGFR declines with age. An eGFR of 60-89 may be normal in some populations, particularly the elderly, for whom the CKD-EPI formula has not been extensively validated. Use of the eGFR is not recommended in the following populations:< br/>
Lucy viduals with unstable creatinine concentration s, including patients and those with serious co-morbid conditions.<b r/>
Patie nts with extremes in muscle mass or diet.

The data above are obtained from the National Kidney Disease Education Program (NKDEP) which additionally recommends that when the eGFR is used in patients with extremes of body mass index for purposes of drug dosing, the eGFR should be multiplied by the estimated BMI. CHEM PANEL Glucose Lvl 104 70 - 99 06/30 [facility] CHEM PANEL Potassium 4.0 3.5 - 5.1 06/30 [facility] CHEM PANEL Sodium Lvl 140 135 - 145 06/30 [facility] CHEM PANEL Creatinine 1.10 0.50 - 06/30 Lvl 1.40 [facility] CHEM PANEL BUN 21 7 - 22 06/30 [facility] CHEM PANEL AGAP 13.0 10.0 - 06/30 MH 20. [facility] CHEM PANEL CO2 27 24 - 32 06/30 [facility] CHEM PANEL Calcium Lvl 8.2 8.5 - 10.5 06/30 [facility] CHEM PANEL Chloride Lvl 104 95 - 109 06/30 [facility] CHEM PANEL Magnesium 2.6 1.8 - 2.4 06/29 [facility] ELECTROLYT AGAP 15.4 10.0 - 06/29 ES 20. [facility] ELECTROLYT eGFR 69 06/29 Comment: The [facility] eGFR is calculated using the CKD-EPI formula. In most young, healthy individuals the eGFR will be >90 mL/min/1.73m2 . The eGFR declines with age. An eGFR of 60-89 may be normal in some populations, particularly the elderly, for whom the CKD-EPI formula has not been extensively validated. Use of the eGFR is not recommended in the following populations:< br/>
Lucy viduals with unstable creatinine concentration s, including patients and those with serious co-morbid conditions.<b r/>
Patie nts with extremes in muscle mass or diet.

The data above are obtained from the National Kidney Disease Education Program (NKDEP) which additionally recommends that when the eGFR is used in patients with extremes of body mass index for purposes of drug dosing, the eGFR should be multiplied by the estimated BMI. ELECTROLYT Glucose Lvl 110 70 - 99 06/29 [facility] ELECTROLYT BUN 26 7 - 22 06/29 [facility] ELECTROLYT Chloride Lvl 105 95 - 109 06/29 [facility] ELECTROLYT Creatinine 1.10 0.50 - 06/29 ES Lvl 1.40 [facility] ELECTROLYT Sodium Lvl 137 135 - 145 06/29 [facility] ELECTROLYT Potassium 4.4 3.5 - 5.1 06/29 ES [facility] ELECTROLYT CO2 21 24 - 32 06/29 [facility] ELECTROLYT Calcium Lvl 8.1 8.5 - 10.5 04/ MH ES /2016 [facility] HEMATOLOGY Basophils 0.3 0.0 - 1.0 04 /2016 [facility] HEMATOLOGY Segs-Bands # 9.5 1.5 - 8.1 04/ /2016 [facility] HEMATOLOGY Lymphocytes 1.2 1.0 - 5.5 04/05 MH # /2017 [facility] HEMATOLOGY Monocytes # 1.4 0.0 - 0.8 06/29 [facility] HEMATOLOGY Basophils # 0.0 0.0 - 0.2 06/29 [facility] HEMATOLOGY Eosinophils 0.2 0.0 - 0.5 / MH # /2016 [facility] HEMATOLOGY Polychrom Moderate None Seen 06/29 *ABN* /2016 [facility] (06/29/16 5:06 AM) HEMATOLOGY Plt Morph Normal 06/29 (06/29/16 5:06 AM) [facility] HEMATOLOGY Lymphocytes 9.7 20.0 - 06/29 40.0 /2016 [facility] HEMATOLOGY Segs 77.0 45.0 - 06/29 75.0 [facility] HEMATOLOGY Eosinophils 1.6 0.0 - 4.0 04/ [facility] HEMATOLOGY Monocytes 11.4 2.0 - 12.0 06/29 [facility] HEMATOLOGY MCH 28.6 27.0 - 06/29 31.0 [facility] HEMATOLOGY Platelet 163 133 - 450 06/29 [facility] HEMATOLOGY RDW 14.2 11.5 - / 14.5 /2016 [facility] HEMATOLOGY MCHC 33.9 32.0 - 06/29 36.0 [facility] HEMATOLOGY MPV 8.3 7.4 - 10.4 06/29 [facility] HEMATOLOGY RBC 3.11 4.70 - 04 6.10 /2016 [facility] HEMATOLOGY WBC 12.3 3.7 - 10.4 06/29 [facility] HEMATOLOGY MCV 84.3 80.0 - 06/29 94.0 [facility] HEMATOLOGY Hct 26.2 42.0 - 06/29 54.0 [facility] HEMATOLOGY Hgb 8.9 14.0 - 06/29 18.0 [facility] CHEM PANEL eGFR 56 / Result Comment: The [facility] eGFR is calculated using the CKD-EPI formula. In most young, healthy individuals the eGFR will be >90 mL/min/1.73m2 . The eGFR declines with age. An eGFR of 60-89 may be normal in some populations, particularly the elderly, for whom the CKD-EPI formula has not been extensively validated. Use of the eGFR is not recommended in the following populations:< br/>
Lucy viduals with unstable creatinine concentration s, including patients and those with serious co-morbid conditions.<b r/>
Patie nts with extremes in muscle mass or diet.

The data above are obtained from the National Kidney Disease Education Program (NKDEP) which additionally recommends that when the eGFR is used in patients with extremes of body mass index for purposes of drug dosing, the eGFR should be multiplied by the estimated BMI. CHEM PANEL Calcium Lvl 8.3 8.5 - 10.5 06/28 [facility] CHEM PANEL Potassium 4.5 3.5 - 5.1 06/28 MH Lvl [facility] CHEM PANEL CO2 24 24 - 32 06/28 [facility] CHEM PANEL Chloride Lvl 107 95 - 109 06/28 [facility] CHEM PANEL Glucose Lvl 118 70 - 99 06/28 [facility] CHEM PANEL BUN 29 7 - 22 06/28 [facility] CHEM PANEL Sodium Lvl 139 135 - 145 06/28 [facility] CHEM PANEL Creatinine 1.30 0.50 - 06/28 Lvl 1.40 /2016 [facility] CHEM PANEL AGAP 12.5 10.0 - 06/28 20.0 [facility] CHEM PANEL Magnesium 2.7 1.8 - 2.4 06/28 MH Lvl /2016 [facility] HEMATOLOGY Hgb 9.0 14.0 - 06/28 MH 18.0 [facility] HEMATOLOGY Hct 27.7 42.0 - 06/28 MH 54.0 /2016 [facility] HEMATOLOGY MCV 87.2 80.0 - 06/28 MH 94.0 /2016 [facility] HEMATOLOGY MCH 28.5 27.0 - 06/28 MH 31.0 [facility] HEMATOLOGY MCHC 32.6 32.0 - 06/28 36.0 [facility] HEMATOLOGY WBC 11.9 3.7 - 10.4 06/28 [facility] HEMATOLOGY RBC 3.17 4.70 - 06/28 MH 6.10 /2016 [facility] HEMATOLOGY RDW 14.6 11.5 - 06/28 MH 14.5 /2016 [facility] HEMATOLOGY Platelet 136 133 - 450 04/ MH /2016 [facility] HEMATOLOGY MPV 8.6 7.4 - 10.4 04/ MH /2016 [facility] HEMATOLOGY Lymphocytes 1.5 1.0 - 5.5 04/ MH # /2016 [facility] HEMATOLOGY Monocytes # 1.4 0.0 - 0.8 04/ /2016 [facility] HEMATOLOGY Eosinophils 0.1 0.0 - 0.5 04/ MH # /2016 [facility] HEMATOLOGY Lymphocytes 12.3 20.0 - 04/ MH 40.0 /2016 [facility] HEMATOLOGY Monocytes 11.6 2.0 - 12.0 04/ /2016 [facility] HEMATOLOGY Eosinophils 1.1 0.0 - 4.0 04/ /2016 [facility] HEMATOLOGY Basophils 0.3 0.0 - 1.0 04/ /2016 [facility] HEMATOLOGY Segs-Bands # 8.9 1.5 - 8.1 / /2016 [facility] HEMATOLOGY Segs 74.7 45.0 - 04/ 75.0 /2016 [facility] CHEM PANEL Magnesium 2.4 1.8 - 2.4 04/ Lvl /2016 [facility] HEMATOLOGY WBC 18.6 3.7 - 10.4 04/ /2016 [facility] HEMATOLOGY RDW 14.7 11.5 - 04/ MH 14.5 /2016 [facility] HEMATOLOGY MCHC 33.1 32.0 - 04/03 36.0 /2016 [facility] HEMATOLOGY Hct 29.5 42.0 - 04/03 54.0 /2016 [facility] HEMATOLOGY MCH 28.1 27.0 - 04/03 MH 31.0 /2017 [facility] HEMATOLOGY MCV 84.7 80.0 - 04/ 94.0 /2017 [facility] HEMATOLOGY MPV 9.7 7.4 - 10.4 04/ /2016 [facility] HEMATOLOGY Platelet 118 133 - 450 04/ /2016 [facility] HEMATOLOGY Hgb 9.8 14.0 - 04/ MH 18.0 /2016 [facility] HEMATOLOGY RBC 3.48 4.70 - 04/ MH 6.10 /2016 [facility] HEMATOLOGY Lymphocytes 2.0 1.0 - 5.5 04/ MH # /2016 [facility] HEMATOLOGY Segs 76.1 45.0 - 04/ MH 75.0 /2016 [facility] HEMATOLOGY Eosinophils 0.1 0.0 - 4.0 04/ /2016 [facility] HEMATOLOGY Monocytes 12.7 2.0 - 12.0 04/ /2016 [facility] HEMATOLOGY Segs-Bands # 14.2 1.5 - 8.1 04 MH /2016 [facility] HEMATOLOGY Basophils 0.5 0.0 - 1.0 06/27 [facility] HEMATOLOGY Lymphocytes 10.6 20.0 - 06/27 MH 40.0 /2016 [facility] HEMATOLOGY Basophils # 0.1 0.0 - 0.2 06/27 [facility] HEMATOLOGY Monocytes # 2.4 0.0 - 0.8 06/27 [facility] CHEM PANEL Phosphorus 2.0 2.5 - 4.5 06/26 [facility] HEMATOLOGY Eosinophils 0.0 0.0 - 0.5 06/26 MH # /2016 [facility] HEMATOLOGY Basophils # 0.0 0.0 - 0.2 06/26 [facility] PARATHYROI Ca Ion WB 1.11 1.05 - 06/26 MH D PROFILE 04.20 [facility] PARATHYROI Ca Norm WB 1.11 1.05 - 06/26 MH D PROFILE 04.20 [facility] with [facility] Hgb A1C 6.4 <=5.6 % 06/26 [facility] CHEM PANEL Phosphorus 1.6 2.5 - 4.5 06/25 [facility] RBC Morph Normal 06/25 (06/25/16 2:28 AM) [facility] HEMATOLOGY Plt Morph Normal 06/25 (06/25/16 2:28 AM) [facility] PARATHYROI Ca Norm WB 1.06 1.05 - 06/25 D PROFILE 04.20 [facility] PARATHYROI Ca Ion WB 1.09 1.05 - 06/25 D PROFILE 04.20 [facility] HEMATOLOGY POC 34.0 42.0 - 06/24 Hematocrit 54.0 [facility] HEMATOLOGY POC 11.6 14.0 - 06/24 Hemoglobin 18.0 [facility] POC Ion Ca 1.09 1.05 - 06/24 MH 04.20 [facility] HEMATOLOGY POC 4.4 3.5 - 5.1 06/24 Potassium [facility] POC Sodium 143 135 - 145 06/24 [facility] CHEM PANEL A/G Ratio 1.4 0.7 - 1.6 06/24 [facility] CHEM PANEL Globulin 2.1 2.7 - 4.2 06/24 [facility] CHEM PANEL Bili 0.4 0.0 - 1.0 06/24 [facility] CHEM PANEL Bili Direct 0.2 0.0 - 0.3 06/24 [facility] CHEM PANEL Bili Total 0.6 0.2 - 1.3 06/24 [facility] CHEM PANEL Alk Phos 38 39 - 136 06/24 [facility] CHEM PANEL AST 42 0 - 37 06/24 [facility] CHEM PANEL ALT 51 0 - 65 06/24 [facility] CHEM PANEL Albumin Lvl 2.9 3.5 - 5.0 06/24 [facility] CHEM PANEL Total 5.0 6.4 - 8.4 06/24 MH [facility] CHEM PANEL Phosphorus 2.3 2.5 - 4.5 06/24 [facility] HEMATOLOGY FSP <5 ug/ml <5 ug/ml 06/24 [facility] HEMATOLOGY Fibrinogen 206 230 - 510 06/24 Lvl /2016 [facility] HEMATOLOGY PTT 34.9 22.9 - 06/24 MH 35.8 /2016 [facility] HEMATOLOGY INR 1.27 0.85 - 06/24 MH 1. [facility] HEMATOLOGY PT 16.2 12.0 - 06/24 MH 14.7 [facility] PARATHYROI Ca Norm WB 1.09 1.05 - 06/24 D PROFILE 1. [facility] PARATHYROI Ca Ion WB 1.10 1.05 - 06/24 D PROFILE 1. [facility] HEMATOLOGY Fibrinogen 196 230 - 510 06/24 Lvl /2016 [facility] HEMATOLOGY PTT 32.8 22.9 - 06/24 MH 35.8 /2016 [facility] HEMATOLOGY PT 16.6 12.0 - 06/24 MH 14. [facility] HEMATOLOGY INR 1.32 0.85 - 06/24 MH 1. [facility] BLOOD BANK Antibody Negative 06/24 RESULTS Scrn (06/24/16 4:15 AM) /2016 [facility] BLOOD BANK ABO/Rh A POS 06/24 MH RESULTS /2016 [facility] BLOOD BANK Platelet Product available 06/24 RESULTS product (06/24/16 4:00 AM) /2016 [facility] BLOOD BANK FFP product Product available 06/24 RESULTS (06/24/16 4:00 AM) /2016 [facility] BLOOD BANK Cryo product Product available 06/24 RESULTS (06/24/16 4:00 AM) /2016 [facility] BLOOD BANK RBC product Product available 06/24 RESULTS (06/24/16 4:00 AM) /2016 [facility] HEMATOLOGY INR 1.05 0.85 - 06/22 MH 1.17 /2016 [facility] HEMATOLOGY PTT 37.0 22.9 - 06/22 MH 35.8 /2016 [facility] HEMATOLOGY PT 13.9 12.0 - 06/22 MH 14.7 [facility] BLOOD BANK ABO/Rh A POS 06/20 RESULTS /2016 [facility] BLOOD BANK Antibody Negative 06/20 RESULTS Scrn (06/20/16 5:18 AM) /2016 [facility] HEMATOLOGY Plt Morph Normal 06/20 MH (06/20/16 5:18 AM) /2016 [facility] HEMATOLOGY RBC Morph Normal 06/20 MH (06/20/16 5:18 AM) /2016 [facility] MOLECULAR HCV RNA 6.9 06/20 DIAGNOSTIC Log10 /2016 [facility] MOLECULAR HCV RNA [id number] 06/20 DIAGNOSTIC VirLoad /2016 [facility] BLOOD BANK FFP product Product available 06/20 RESULTS (06/20/16 5:00 AM) /2016 [facility] BLOOD BANK Cryo product Product available 06/20 RESULTS (06/20/16 5:00 AM) /2016 [facility] BLOOD BANK RBC product Product available 06/20 RESULTS (06/20/16 5:00 AM) /2016 [facility] BLOOD BANK Platelet Product available 06/20 RESULTS product (06/20/16 5:00 AM) /2016 [facility] BACTERIAL MRSA by PCR Negative 06/18 - SEROLOGY (06/18/16 5:33 AM) [facility] CHEM PANEL B/C Ratio 18 6 - 25 06/18 [facility] CHEM PANEL Globulin 3.9 2.7 - 4.2 06/18 [facility] CHEM PANEL A/G Ratio 0.8 0.7 - 1.6 06/18 [facility] CHEM PANEL ALT 67 0 - 65 06/18 [facility] CHEM PANEL AST 74 0 - 37 06/18 [facility] CHEM PANEL Total 7.1 6.4 - 8.4 06/18 Protein /2016 [facility] CHEM PANEL Albumin Lvl 3.2 3.5 - 5.0 06/18 [facility] CHEM PANEL Alk Phos 58 39 - 136 06/18 [facility] CHEM PANEL Bili Total 0.4 0.2 - 1.3 06/18 [facility] LIPIDS CHD Risk 4.04 4.00 - 06/18 MH 7. [facility] LIPIDS VLDL 16 06/18 [facility] LIPIDS LDL 121 <=99 mg/dL 06/18 (Calculated) [facility] LIPIDS HDL 45 >=61 mg/dL 06/18 [facility] LIPIDS Trig 82 <=149 06/18 mg/dL [facility] LIPIDS Chol 182 <=199 06/18 mg/dL [facility] SPECIAL Hgb A1C 6.4 <=5.6 % 06/18 CHEMISTRY [facility] URINE AND UA <=1.0 0.1 - 1.0 06/18 STOOL Urobilinogen /2016 [facility] URINE AND UA Sq Epi None Seen 06/18 STOOL [facility] URINE AND UA RBC <1 0 - 2 06/18 STOOL [facility] URINE AND UA Bili Negative Negative 06/18 STOOL *NA* /2016 [facility] (06/18/16 5:33 AM) URINE AND UA Ketones Negative Negative 06/18 STOOL mg/dL mg/dL [facility] URINE AND UA Glucose Negative Negative 06/18 STOOL mg/dL mg/dL [facility] URINE AND UA WBC <1 0 - 5 06/18 STOOL [facility] URINE AND UA Leuk Est Negative Negative 06/18 STOOL (06/18/16 5:33 AM) [facility] URINE AND UA Nitrite Negative Negative 06/18 STOOL (06/18/16 5:33 AM) [facility] URINE AND UA Blood Negative Negative 06/18 STOOL (06/18/16 5:33 AM) [facility] URINE AND UA Protein Negative Negative 06/18 STOOL mg/dL mg/dL [facility] URINE AND UA Color Light Yellow Yellow 06/18 STOOL *NA* /2016 [facility] (06/18/16 5:33 AM) URINE AND UA Turbidity Clear Clear 06/18 STOOL (06/18/16 5:33 AM) [facility] URINE AND UA pH 5.0 5.0 - 8.0 06/18 STOOL [facility] URINE AND UA Spec Grav 1.008 <=1.030 06/18 STOOL [facility] URINE AND UA Turbidity Clear Clear 06/18 STOOL (06/17/16 11:28 PM) [facility] URINE AND UA pH 6.0 5.0 - 8.0 06/18 STOOL [facility] URINE AND UA Color Light Yellow Yellow 06/18 STOOL *NA* /2016 [facility] (06/17/16 11:28 PM) URINE AND UA Spec Grav 1.010 <=1.030 06/18 STOOL [facility] URINE AND UA WBC 1 0 - 5 06/18 STOOL [facility] URINE AND UA Bacteria Occasional None Seen 06/18 STOOL /HPF /HPF /2016 [facility] URINE AND UA Glucose Negative Negative 06/18 STOOL mg/dL mg/dL [facility] URINE AND UA Protein Negative Negative 06/18 STOOL mg/dL mg/dL [facility] URINE AND UA <=1.0 0.1 - 1.0 06/18 STOOL Urobilinogen /2016 [facility] URINE AND UA Sq Epi None Seen 06/18 STOOL [facility] URINE AND UA Leuk Est Negative Negative 06/18 STOOL (06/17/16 11:28 PM) [facility] URINE AND UA Nitrite Negative Negative 06/18 STOOL (06/17/16 11:28 PM) [facility] URINE AND UA Blood Negative Negative 06/18 STOOL (06/17/16 11:28 PM) [facility] URINE AND UA Bili Negative Negative 06/18 STOOL *NA* /2016 [facility] (06/17/16 11:28 PM) URINE AND UA Ketones Negative Negative 06/18 STOOL mg/dL mg/dL [facility] LIPIDS CHD Risk 4.26 4.00 - 06/16 7.30 /2016 [facility] LIPIDS VLDL 22 06/16 [facility] LIPIDS LDL 118 <=99 mg/dL 06/16 (Calculated) [facility] LIPIDS HDL 43 >=61 mg/dL 06/16 [facility] LIPIDS Chol 183 <=199 06/16 mg/dL [facility] LIPIDS Trig 112 <=149 06/16 mg/dL /2016 [facility] CARDIAC Total CK 384 12 - 191 06/16 ENZYMES /2016 [facility] CARDIAC Troponin-I 7.44 0.00 - 06/16 Result ENZYMES 0.40 /2017 Comment: [facility] Critical Result(s) called to Missael Alvarenga at 06/15/2016 20:33 by TW. Read back OK. CARDIAC CK MB Index 4.4 0.0 - 2.5 06/16 ENZYMES /2016 [facility] CARDIAC CK MB 17.0 0.5 - 3.6 06/16 ENZYMES /2016 [facility] CARDIAC CK MB Index 4.8 0.0 - 2.5 06/15 ENZYMES /2016 [facility] CARDIAC Total CK 412 12 - 191 06/15 ENZYMES /2016 [facility] CARDIAC CK MB 19.8 0.5 - 3.6 06/15 ENZYMES /2016 [facility] CARDIAC Troponin-I 6.52 0.00 - 06/15 Result MH ENZYMES 0.40 2017 Comment: [facility] Critical Result(s) called to Robert long at 06/15/2016 16:44 by TW. Read back OK. CHEM PANEL Globulin 3.7 2.7 - 4.2 06/15 [facility] CHEM PANEL A/G Ratio 0.9 0.7 - 1.6 06/15 [facility] CHEM PANEL B/C Ratio 19 6 - 25 06/15 [facility] CHEM PANEL Bili Total 0.5 0.2 - 1.3 06/15 [facility] CHEM PANEL Albumin Lvl 3.3 3.5 - 5.0 06/15 [facility] CHEM PANEL Total 7.0 6.4 - 8.4 06/15 Protein [facility] CHEM PANEL Alk Phos 68 39 - 136 06/15 [facility] CHEM PANEL AST 51 0 - 37 06/15 [facility] CHEM PANEL ALT 44 0 - 65 06/15 [facility] DRUG U Cannab Scr Negative Negative 06/15 MH SCREEN *NA* /2016 [facility] (06/15/16 2:56 PM) DRUG U Phencyc Negative Negative 06/15 MH SCREEN Scr *NA* /2016 [facility] (06/15/16 2:56 PM) DRUG U Opiate Scr Negative Negative 06/15 MH SCREEN *NA* [facility] (06/15/16 2:56 PM) DRUG U Cocaine Negative Negative 06/15 MH SCREEN Scr *NA* /2016 [facility] (06/15/16 2:56 PM) DRUG U Benzodia Negative Negative 06/15 MH SCREEN Scr *NA* /2016 [facility] (06/15/16 2:56 PM) DRUG U Amph Scr Negative Negative 06/15 MH SCREEN *NA* /2016 [facility] (06/15/16 2:56 PM) DRUG U Elsy Scr Negative Negative 06/15 MH SCREEN *NA* /2016 [facility] (06/15/16 2:56 PM) DRUG UDS Note See Note 06/15 MH SCREEN (06/15/16 2:56 PM) /2016 [facility] IMMUNOLOGY Hep Bs Ag Negative Negative 06/15 MH *NA* /2016 [facility] (06/15/16 2:56 PM) IMMUNOLOGY Hep B Core Negative Negative 06/15 IgM *NA* [facility] (06/15/16 2:56 PM) IMMUNOLOGY Hep C Ab Positive 06/15 MH *ABN* /2016 [facility] (06/15/16 2:56 PM) IMMUNOLOGY Hep A IgM Negative Negative 06/15 *NA* /2016 [facility] (06/15/16 2:56 PM) SPECIAL Hgb A1C 6.6 <=5.6 % 06/15 CHEMISTRY /2016 [facility] URINE AND UA pH 5.5 5.0 - 8.0 06/15 STOOL /2016 [facility] URINE AND UA Spec Grav 1.020 <=1.030 06/15 STOOL [facility] URINE AND UA Protein Negative Negative 06/15 STOOL (06/15/16 2:56 PM) [facility] URINE AND UA Turbidity Clear Clear 06/15 STOOL (06/15/16 2:56 PM) [facility] URINE AND UA Leuk Est Negative Negative 06/15 STOOL (06/15/16 2:56 PM) [facility] URINE AND Micro? Not Indicated 06/15 STOOL (06/15/16 2:56 PM) /2016 [facility] URINE AND UA Glucose Negative Negative 06/15 STOOL (06/15/16 2:56 PM) [facility] URINE AND UA Bili Negative Negative 06/15 STOOL *NA* /2016 [facility] (06/15/16 2:56 PM) URINE AND UA Ketones Negative Negative 06/15 STOOL *NA* [facility] (06/15/16 2:56 PM) URINE AND UA Blood Negative Negative 06/15 STOOL (06/15/16 2:56 PM) [facility] URINE AND UA Nitrite Negative Negative 06/15 STOOL (06/15/16 2:56 PM) [facility] URINE AND UA 0.2 0.1 - 1.0 06/15 STOOL Urobilinogen /2016 [facility] URINE AND UA Color Yellow Yellow 06/15 STOOL *NA* [facility] (06/15/16 2:56 PM) Pathology Reports No Data Provided for This Section Diagnostic Reports Report Value Date Source Chest 1view DX Clinical Indication:65 years Male with Tube placement/removal/ reposition 06/30/2016 [facility] Comparison: Chest x-ray of 06/27/2016 FINDINGS: Lines: Right IJ central venous catheter is [...] atelectasis and likely small left pleural effusion. Chest 1view DX Study: Chest 1view DX 06/27/2016 [facility] Clinical Indication: Tube placement/removal/reposition Comparison: Chest x-ray from 06/26/2016 FINDINGS: 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 Right internal jugular central line is stable. [place]-Cristian cath eter has been removed. Cardiac silhouette is normal in size. Calcified AP window lymph node is noted. Lung volumes are diminished and bibasilar atelectasis is seen. No pleural effusion or pneumothorax is seen. The osseous structures are unremarkable. IMPRESSION: Interval removal of [place]-Cristian catheter SL: [id number] Chest 1view DX Clinical Indication:65 years Male with Tube placement/removal/ reposition 06/26/2016 [facility] Comparison: Chest x-ray 06/25/2016 FINDINGS: Lines: Unchanged positions of right IJ central [...] regions are likely atelectasis. Low lung volumes. Chest 1view DX Chest 1view DX 06/25/2016 [facility] CLINICAL HISTORY:Tube placement/removal/reposition COMPARISON: 06/24/2016 FINDINGS/IMPRESSION: Limited AP portable study. [...] wires project over the patient's chest. SL: [id number] Chest 1view DX Patient Name: CHYNA RYAN 06/24/2016 [facility] : 1950; Age: 65 years y/o Male MR: [id number] * CHEST, portable, 1 view HISTORY: Status [...] base. 5. There is a right IJ [place]-Cristian catheter. The catheter tip is in the expected location of the pulmonary valve. The [place]-Cristian catheter does not extend into either main pulmonary artery. 6. The tip of the right IJ central venous catheter is in the lower superior vena cava. 7. There are mild scattered degenerative changes involving the thoracic spine. The regional skeleton is otherwise unremarkable. SL: [id number] Chest 2 views DX CHEST, 2 VIEWS 06/18/2016 [facility] HISTORY: ; Respiratory distress; COMPARISON: June 15, 2016 FINDINGS: Lungs are underinflated with mild bilateral basal atelectasis/infiltrate, left greater than right. No pleural effusion or pneumothorax. Stable mediastinum. No acute osseous abnormality. SL: [id number] Abdomen RUQ US ULTRASOUND ABDOMEN RIGHT UPPER QUADRANT 06/17/2016 [facility] HISTORY: Abnormal Lab tests- LFT; COMPARISON: None available. TECHNIQUE: Grayscale and limited [...] right abdominal ascites. IMPRESSION: Normal study. SL: [id number] Chest 2 views DX Patient Name: CHYNA RYAN 06/15/2016 [facility] : 1950; Age: 65 years Male MR: [id number] Study: Chest 2 views DX Order Time: 06/15/2016 1:54 PM CDT CLINICAL INDICATION: Abnormal chest sounds COMPARISON: None FINDINGS: Lines: None. Lungs: Interstitial opacities within the left lower lobe. No effusion or pneumothorax. Mediastinum: The cardiac silhouette is within normal limits of size. Midline trachea. Bones and soft tissues: No acute abnormalities. IMPRESSION: Findings suggest left lower lobe pneumonia. Recommend follow-up chest imaging to document resolution. SL: [id number] Consultation Notes No Data Provided for This Section Discharge Summaries No Data Provided for This Section History and Physicals No Data Provided for This Section Vital Signs Vital Sign Value Date Comments Source Respitory Rate 20 06/30/2016 [facility] Systolic (mm Hg) 114 06/30/2016 [facility] Diastolic (mm Hg) 75 06/30/2016 [facility] Heart Rate 76 06/30/2016 [facility] Respitory Rate 20 06/30/2016 [facility] Systolic (mm Hg) 105 06/30/2016 [facility] Diastolic (mm Hg) 60 06/30/2016 [facility] Heart Rate 77 06/30/2016 [facility] Systolic (mm Hg) 108 06/30/2016 [facility] Diastolic (mm Hg) 68 06/30/2016 [facility] Heart Rate 70 06/30/2016 [facility] Respitory Rate 18 06/30/2016 [facility] Weight 111.384 06/29/2016 [facility] Weight 110.469 06/28/2016 [facility] Height 177.8 cm 06/25/2016 [facility] Height 177.8 cm 06/25/2016 [facility] Height 177.8 cm 06/24/2016 [facility] Temperature Oral (F) 97.6 F 06/24/2016 [facility] Weight 103.653 06/24/2016 [facility] Temperature Oral (F) 97.9 F 06/20/2016 [facility] BMI Calculated 32.56 06/15/2016 [facility] Encounters Location Location Encounter Encounter Reason Attending ADM DC Status Source Details Type Number For Provider Date Date Visit [facility] [id number] Eugenia Benedict 06/15 07/01 [place] /2016 [facility] Outside [id number] 01/16 01/18 Cardiology Medical /2017 [facility] Records Group Procedures Procedure Code Date Perfomer Comments Source Repair of knee [id number] 03/27/1973 [facility] collateral ligaments Repair of knee [id number] 03/27/1973 Medical collateral Group ligaments Assessment and Plan Assessment and Plan Date Source Extracted from:Title: Discharge Summary * 07/01/2016 [facility] Author: Parag Solis MD Date: 06/30/16 Discharge Information Date of Admission: 06/15 Date of Discharge: 06/30 Active Diagnosis During this Hospitalization: CAD/ s/p CABG Paroxysmal A fib bilateral leg edema hep C cirrhosis DM2. Hx of COPD leukocytoiss. Chronic Diagnosis : Please see the Past Medical History Operations and procedures : cardiac Cath and CABG Discharge Condition: Stable Complications: None Discharge Meds: Please see the list of Discharge Medications: Discharge Follow Up: F/U Primary Care Doctor in 1 week. F/U CV surgery and cardiology in 1 week Discharge Instructions: Please take the medications as prescribed and F/U with your doctor as instructed. Please call your doctor or Return to the ER if symptoms worsen or return. Diet : Heart healthy Activity: No restrictions Restrictions: No restrictions. Total Time Spent in discharge: 35 Minutes Discharge Plan Discharge Summary Plan Discharge Status: improved. Discharge instructions given: to patient. Discharge disposition: discharge to home with home health care. Prescriptions: reviewed, written and given to patient. Course Improving. Education and Follow-up Counseled: patient, regarding diagnosis, regarding treatment, regarding medications. Extracted from:Title: Progress Note *AK Author: Parag Solis MD Date: 06/29/16 Impression and Plan CAD/ s/p CABG , CT surgery managing, on asa.plavix. statin, bb Still having Chest tubes cardiology following hep C cirrhosis f/u Out patient DM2. on inusiln SS leukocytoiss. resolved lovenox disposition once ok with CV surgery and chest tube taken out Plan of Care No Data Provided for This Section Social History Social History Date Source Social History TypeResponse 06/15/2016 [facility] Smoking Status Former smoker; Type: Cigarettes; Started at age: 13.0; Stopped at age: 55; Ready to change: Yes; Concerns about tobacco use in household: No; Exposure to Tobacco Smoke None; Cigarette Smoking Last 365 Days No; Reg Smoking Cessation Counseling No Social History TypeResponse 06/15/2016 [facility] Smoking Status Former smoker; Type: Cigarettes; Ready to change: Yes; Concerns about tobacco use in household: No; Exposure to Tobacco Smoke None; Cigarette Smoking Last 365 Days No; Reg Smoking Cessation Counseling No; Started at age: 15.0; Stopped at age: 55; entered on: 06/15/16 Family History No Data Provided for This Section Advance Directives No Data Provided for This Section Functional Status No Data Provided for This Section
--- OUTSIDE RECORDS SUMMARY | 2018-09-29 15:27 | XMS REPORT ---
:1950 Author Organization [facility] Address [address] [place] [address] [address] [place] [address] Care Team Providers Name Role Phone Unavailable Unavailable Unavailable Problems This patient has no known problems. Allergies, Adverse Reactions, Alerts This patient has no known allergies or adverse reactions. Medications This patient has no known medications.
--- NOTE | 2018-09-29 16:23 | RAD REPORT ---
EXAM DESCRIPTION: RAD - Shoulder Left 2 View - 09/29/2018 4:18 pm CLINICAL HISTORY: PAIN COMPARISON: No comparisons FINDINGS: Advanced degenerative changes present involving the AC joint. The glenohumeral joint appea rs intact. Acute fracture not identified.
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
== END 2018-09-29 17:04 | disposition home or self-care (01) ==
LOC: ER 15:19 → SUPCPDRO 15:19 → ER 17:04
DX: M25.512 Pain in left shoulder (principal); R73.03 Prediabetes; J44.9 Chronic obstructive pulmonary disease, unspecified; I25.2 Old myocardial infarction; Z88.8 Allergy status to other drugs, medicaments and biological substances; Z79.82 Long term (current) use of aspirin
CPT/HCPCS: 99283

== ENCOUNTER 2019-06-14 11:46 | Emergency (ER) | payer OTHER ==
--- OUTSIDE RECORDS SUMMARY | 2019-06-14 11:48 | XMS REPORT | Summary of Care ---
:1950 Author Organization [facility] Address [address] [place] [address] Care Team Providers Name Role Phone Shaila Ariza Primary Care Provider Reason for Referral (Routine) Status Reason Specialty Diagnoses / Referred By Referred To Procedures Contact Contact New Request Location Pulmonary Diagnoses Pulmonary emphysema, unspecified emphysema type Wyatt Aguilera Preference Function Procedures CONSULT/REFERRAL PULMONARY REHAB DO Technologist [address] [place] [address] Reason for Visit Reason Comments Letters Encounter Details Date Type Department Care Team Description 08/31/[address] [facility] ADC Pulmonary Wyatt Aguilera DO Letters Clinic [address], [address] [place] [id number] Allergies Active Allergy Reactions Severity Noted Date Comments Povidone-Iodine Hives 07/07/2014 documented as of this encounter (statuses as of 11/22/2018) Medications Medication Sig Dispensed Refills Start Date End Date Status aspirin 81 mg EC tablet TK 1 T PO D 0 12/23/2016 Active atorvastatin 40 mg TK 1 T PO QD 0 11/02/2016 Active tablet clopidogrel 75 mg tablet TK 1 T PO QD 0 01/04/2017 Active levothyroxine 25 mcg TK 1 T PO QD 6 11/01/2016 Active tablet metoprolol succinate XL TK 1 T PO QD 0 11/02/2016 Active 25 mg 24 hr tablet torsemide 10 mg tablet Take 10 mg by 0 11/02/2016 Active mouth daily. traMADOL 50 mg tablet TK 1 T PO TID 0 11/11/2016 Active PRN fluticasone-salmeterol Inhale 1 Puff 60 Each 11 08/16/2018 Active (ADVAIR DISKUS) 250-50 every 12 mcg/dose inhalation (twelve) hours. diskIndications: Pulmonary emphysema, unspecified emphysema type documented as of this encounter (statuses as of 11/22/2018) Active Problems Problem Noted Date Wound cellulitis after surgery 04/19/2017 Coronary artery disease involving [place] coronary artery of [place] heart 03/08 without angina pectoris Dyspnea 03/08/2017 COPD (chronic obstructive pulmonary disease) 03/08/2017 Stage 3 chronic kidney disease 03/08/2017 HTN (hypertension) 03/08/2017 Total knee replacement status 03/06/2017 documented as of this encounter (statuses as of 11/22/2018) Social History Tobacco Use Types Packs/Day Years Used Date Former Smoker Cigarettes 3 4 Quit: 07/07/2006 Smokeless Tobacco: Never Used Alcohol Use Drinks/Week oz/Week Comments No Quit in 2006 Sex Assigned at Date Recorded Not on file Job Start Date Occupation Industry Not on file Not on file Not on file Travel History Travel Start Travel End No recent travel history available. documented as of this encounter Last Filed Vital Signs Not on filedocumented in this encounter Plan of Treatment Date Type Specialty Care Team Description 11/30/2018 Office Visit Pulmonary Disease Wyatt Aguilera DO [address] [place] [address] Health Maintenance Due Date Last Done Comments HEPATITIS C (HCV) SCREEN 1950 DTaP,Tdap,and Td Vaccines (1 - Tdap) 10/10/1967 COLONOSCOPY 10/09/1998 Zoster Recombinant Vaccine (SHINGRIX) (1 of 2) 10/09/1998 Medicare Wellness Visit 10/09/2013 PNEUMOCOCCAL VACCINES 65+ (1 of 2 - PCV13) 10/09/2013 INFLUENZA VACCINE (#1) 2018 LUNG CANCER SCREEN: Recommended for age 55-80 with 30 02/08/2019 02/08/2018 + pack year history documented as of this encounter Implants Implanted Type Area Corporate Wellness Coordinator Device Shelf Model / Identifier Expiration Serial / Lot Date Cement CEMENT Right: Biomet 09/23/2020 [id number] / Implanted: Qty: 2 on 03/06/2017 by Cb Monk MD at [facility] Knee [id number] / [id number] Tibial Bearing KNEE Right: [employer] 01/25/2018 [id number] / Implanted: Qty: 1 on 03/06/2017 by Cb Monk MD at [facility] Knee [id number] / [id number] Open Box Femoral Right KNEE Right: [employer] 10/13/2026 [id number] / Implanted: Qty: 1 on 03/06/2017 by Cb Monk MD at [facility] Knee [id number] / [id number] Standard Patella PATELLA Right: [employer] 10/28/2021 [id number] / Implanted: Qty: 1 on 03/06/2017 by Cb Monk MD at [facility] Knee [id number] / [id number] Cruciate Tibial Plate PLATE Right: [employer]omet 06/10/2026 [id number] / Implanted: Qty: 1 on 03/06/2017 by Cb Monk MD at [facility] Knee [id number] / [id number] Placental Tissue Matirx-06/12/2017 TISSUE Right: [employer] 2021 [id number] / Implanted: Qty: 1 on 06/12/2017 by Catrachito Zhu MD Knee / Placental Tissue Matrix-06/12/2017 TISSUE Right: [employer] 2021 [id number] / Implanted: Qty: 1 on 06/12/2017 by Catrachito Zhu MD Knee HRT [id number] / documented as of this encounter Results Not on filedocumented in this encounter Visit Diagnoses Diagnosis Pulmonary emphysema, unspecified emphysema type - Primary documented in this encounter Insurance Payer Benefit Plan / Subscriber ID Effective Phone Address Type Group Dates [facility] [id number] 2016-Pres Medicare Adv HEALTHCARE - HEALTHCARE ent PPO MANAGED MEDICARE GOLD MEDICARE [facility] PLAN Effective for [place], all dates [place] [facility] T[facility] [id number] 2014-Pr [address] [place] [address] documented as of this encounter
--- OUTSIDE RECORDS SUMMARY | 2019-06-14 11:48 | XMS REPORT | Summary of Care ---
:1950 Author Organization [facility] Address [address] [place] [address] Care Team Providers Name Role Phone Pcp, Patient Does Not Have A Primary Care Provider Reason for Visit Reason Comments Follow-up Shortness of Breath Encounter Details Date Type Department Care Team Description 04/25/[address] [facility] ADC Wyatt Aguilera DO STELLA (obstructive sleep apnea) (Primary Dx); Pulmonary Clinic [address] [facility] Dyspnea on exertion [address] [place] [address] , [address] [address] Allergies Active Allergy Reactions Severity Noted Date Comments Povidone-Iodine Hives 07/07/2014 documented as of this encounter (statuses as of 04/25/2019) Medications Medication Sig Dispensed Refills Start Date [...] as of this encounter (statuses as of 04/25/2019) Active Problems Problem Noted Date Wound cellulitis after surgery 04/19/2017 Coronary artery disease involving [place] coronary artery of [place] heart 03/08 without angina pectoris Dyspnea 03/08/2017 COPD (chronic obstructive pulmonary disease) 03/08/2017 Stage 3 chronic kidney disease 03/08/2017 HTN (hypertension) 03/08/2017 Total knee replacement status 03/06/2017 documented as of this encounter (statuses as of 04/25/2019) Immunizations Name Administration Dates Next Due Influenza High Dose 11/25/2018 documented as of this encounter Social History Tobacco Use Types Packs/Day Years [...] of this encounter Last Filed Vital Signs Vital Sign Reading Time Taken Comments Blood Pressure 106/76 04/25/2019 11:33 AM BUILDING DRAFTER Pulse 77 04/25/2019 11:33 AM BUILDING DRAFTER Temperature - - Respiratory Rate 19 04/25/2019 11:33 AM BUILDING DRAFTER Oxygen Saturation 99% 04/25/2019 11:33 AM BUILDING DRAFTER Inhaled Oxygen Concentration - - Weight 95.7 kg (211 lb) 04/25/2019 11:33 AM BUILDING DRAFTER Height 167.6 cm (5' 6") 04/25/2019 11:33 AM BUILDING DRAFTER Body Mass Index 34.06 04/25/2019 11:33 AM BUILDING DRAFTER documented in this encounter Progress Notes Wyatt Aguilera DO - 04/25/2019 11:00 AM CST [facility] Interventional Pulmonology [facility] Chief Complaint: Follow up for STELLA/dyspea on exertion History of Present Illness: Valerio Berg is a 68 year old male here for follow up of STELLA and dyspneaon exertion 1/ STELLA - reports using the CPAP every night, at least four hours a night. Does note benefit from theCPAP 2/ Dyspnea on exertion - with shortness of breath with exertion including short distance. Improved with rest. Also worse with laying on right side and back. Past Medical History: has a past medical history of A-fib, CAD (coronary artery disease), Dyspnea, Hepatitis C, Hyperlipidemia, Hypertension, and Obesity. Past Surgical History: has a past surgical history that includes total hip arthroplasty (Left); 47444 - LA ANESTH,KNEE AREA SURGERY (Bilateral); upper arm/ elbow surgery unlisted (Right); coronary artery bypass graft; oral surgery procedure; total knee arthroplasty (Right, 03/06/2017); wound debridement (Right , 04/19/2017); wound vac placement (shx) (Right, 04/19/2017); wound vac exchange ( shx) (Right,04/24/2017); wound debridement (Right, 04/21/2017); and wound vac exchange (shx) (Right, 04/21/2017). Family History: family history includes No Significant Medical Problems in his father and mother. Social History: reports that he quit smoking about 12 years ago. His smoking use included cigarettes. He has a 12.00 pack-year smoking history. He has never used smokeless tobacco. He reports that he does not drink alcohol or use drugs. Review of Systems: Review of Systems Constitutional: Negative. HENT: Negative. Eyes: Negative. Respiratory: Positive for shortness of breath. Cardiovascular: Negative. Gastrointestinal: Negative. Genitourinary: Negative. Musculoskeletal: Negative. Skin: Negative. Neurological: Negative. Psychiatric/Behavioral: Negative. Endocrine: Endocrine negative Objective: BP 106/76 (BP Location: Left arm, Patient Position: Sitting, BP CUFF SIZE: Adult Medium) | Pulse 77 | Resp 19 | Ht 5' 6" (1.676 m) | Wt 211 lb (95.7 kg ) | SpO2 99% | BMI 34.06 kg/m Physical Exam Constitutional: He is oriented to person, place, and time. He appears well- developed and well-nourished. HENT: Head: Normocephalic and atraumatic. Eyes: Conjunctivae and EOM are normal. Neck: Normal range of motion. Neck supple. Cardiovascular: Normal rate and regular rhythm. Pulmonary/Chest: Effort normal and breath sounds normal. Abdominal: Soft. Bowel sounds are normal. Musculoskeletal: Normal range of motion. Neurological: He is alert and oriented to person, place, and time. Skin: Skin is warm and dry. Psychiatric: He has a normal mood and affect. His behavior is normal. Judgment and thought content normal. Labs/Studies: AHI [address] thorax - emphysematous changes Pulmonary Function Testing: FEV1 1.92L (62%), FVC 2.56 (65%), Ratio 75% TLC 4.14 (66%) NT pro BNP 939 - 03/09/2017 Assessment: ICD-10-CM ICD-9-CM 1. STELLA (obstructive sleep apnea) G47.33 327.23 2. Dyspnea on exertion R06.09 786.09 Plan: 1. Continue with CPAP 2. Continue with diuretics and albuterol 3. Reconditioning - walking every day this should help 4. Follow up 3 -4 months documented in this encounter Plan of Treatment Health Maintenance Due Date Last Done Comments HEPATITIS C (HCV) SCREEN 1950 DTaP,Tdap,and Td Vaccines (1 - Tdap) 10/10/1959 Zoster Recombinant Vaccine (SHINGRIX) (1 of 2) 10/09/1998 Medicare Wellness Visit 10/09/2013 PNEUMOCOCCAL VACCINES 65+ (1 of 2 - PCV13) 10/09/2013 LUNG CANCER SCREEN: Recommended for age 55-80 with 30 02/08/2019 02/08/2018 + pack year history COLONOSCOPY 03/27/2027 03/27/2017 INFLUENZA VACCINE Completed 11/25/2018 documented as of this encounter Implants Implanted Type Area Spares Scheduler Device Shelf Model / Identifier Expiration Serial / Lot Date Cement CEMENT Right: [employer] 09/23/2020 [id number] / Implanted: Qty: 2 on 03/06/2017 by Cb Monk MD at [facility] Knee [id number] / [id number] Tibial Bearing KNEE Right: [employer] 01/25/2018 [id number] / Implanted: Qty: 1 on 03/06/2017 by Cb Monk MD at [facility] Knee [id number] / [id number] Open Box Femoral Right KNEE Right: [employer] 10/13/2026 [id number] / Implanted: Qty: 1 on 03/06/2017 by Cb Monk MD at [facility] Knee [id number] / [id number] Standard Patella PATELLA Right: [employer] 10/28/2021 [id number] / Implanted: Qty: 1 on 03/06/2017 by Cb Monk MD at [facility] Knee [id number] / [id number] Cruciate Tibial Plate PLATE Right: [employer] 06/10/2026 [id number] / Implanted: Qty: 1 on 03/06/2017 by Cb Monk MD at [facility] Knee [id number] / [id number] Placental Tissue Matirx-06/12/2017 TISSUE Right: [employer] 2021 [id number] / Implanted: Qty: 1 on 06/12/2017 by Catrachito Zhu MD Knee / Placental Tissue Matrix-06/12/2017 TISSUE Right: [employer] 2021 [id number] / Implanted: Qty: 1 on 06/12/2017 by Catrachito Zhu MD Knee HRT [id number] / documented as of this encounter Results Not on filedocumented in this encounter Visit Diagnoses Diagnosis STELLA (obstructive sleep apnea) - Primary Obstructive sleep apnea (adult) (pediatric) Dyspnea on exertion Other dyspnea and respiratory abnormality documented in this encounter Insurance Payer Benefit Plan / Subscriber ID Effective Phone Address Type Group Dates [facility] [id number] 2016-Prese Medicare Adv HEALTHCARE [facility] GOLD MEDICARE (Home) [place], [place] [phone] [id number] (Work) documented as of this encounter
--- OUTSIDE RECORDS SUMMARY | 2019-06-14 11:48 | XMS REPORT | Summary of Care ---
:1950 Author Organization [facility] Address [address] [place] [address] Care Team Providers Name Role Phone Shaila Ariza Primary Care Provider Reason for Referral (Routine) Status Reason Specialty Diagnoses / Referred By Referred To Procedures Contact Contact New Request Location Pulmonary Diagnoses Pulmonary emphysema, unspecified emphysema type Wyatt Aguilera Preference Function Procedures CONSULT/REFERRAL PULMONARY REHAB DO Technologist [address] [place] [address] Reason for Visit Reason Comments Letters Encounter Details Date Type Department Care Team Description 08/31/2018 Telephone [facility] ADC Pulmonary Wyatt Aguilera DO Letters Clinic [address], [address] [place] [address] Allergies Active Allergy Reactions [...] after surgery 04/19/2017 Coronary artery disease involving [place] coronary artery of [place] heart 03/08 without angina pectoris Dyspnea 03/08/2017 [...] Office Visit Pulmonary Disease Wyatt Aguilera DO [address] [place] [address] Health Maintenance Due Date Last [...] of this encounter Implants Implanted Type Area Torpedo Specialist Device Shelf Model / Identifier Expiration Serial / Lot Date Cement CEMENT Right: Biomet 09/23/2020 [id number] / Implanted: Qty: 2 on 03/06/2017 by Cb Monk MD at [facility] Knee [id number] / [id number] Tibial Bearing KNEE Right: Biomet 01/25/2018 [id number] / Implanted: Qty: 1 on 03/06/2017 by Cb Monk MD at [facility] Knee [id number] / [id number] Open Box Femoral Right KNEE Right: Biomet 10/13/2026 [id number] / Implanted: Qty: 1 on 03/06/2017 by Cb Monk MD at [facility] Knee [id number] / [id number] Standard Patella PATELLA Right: Biomet 10/28/2021 [id number] / Implanted: Qty: 1 on 03/06/2017 by Cb Monk MD at [facility] Knee [id number] / [id number] Cruciate Tibial Plate PLATE Right: Biomet 06/10/2026 [id number] / Implanted: Qty: 1 on 03/06/2017 by Cb Monk MD at [facility] Knee [id number] / [id number] Placental Tissue Matirx-06/12/2017 TISSUE Right: [employer] [...] ID Effective Phone Address Type Group Dates [facility] [id number] 2016-Pres Medicare Adv HEALTHCARE - HEALTHCARE ent PPO MANAGED MEDICARE GOLD MEDICARE [facility] Effective for [place], all dates [place] [facility] [id number] 2014-Pr [address] [place] [address] documented as of this encounter
--- OUTSIDE RECORDS SUMMARY | 2019-06-14 11:48 | XMS REPORT ---
:1950 Author Organization [facility] Address [address] [place] [address] Dr. Quintanilla [address] [place] [address] Care Team Providers Name Role Phone Unavailable Unavailable Unavailable Problems This patient has no known problems. Allergies, Adverse Reactions, Alerts This patient has no known allergies or adverse reactions. Medications This patient has no known medications.
--- OUTSIDE RECORDS SUMMARY | 2019-06-14 11:48 | XMS REPORT | Summary of Care ---
:1950 Author Organization [facility] Address [address] [place] [address] Care Team Providers Name Role Phone Shaila Ariza Primary Care Provider Reason for Referral (Routine) Status Reason Specialty Diagnoses / Referred By Referred To Procedures Contact Contact New Request Location Pulmonary Diagnoses Pulmonary emphysema, unspecified emphysema type Wyatt Aguilera Preference Function Procedures CONSULT/REFERRAL PULMONARY REHAB DO Technologist [address] [place] [address] Reason for Visit Reason Comments Letters Encounter Details Date Type Department Care Team Description 08/31/2018 Telephone [facility] ADC Pulmonary Wyatt Aguilera DO Letters Clinic [address], [address] [place] [address] Allergies Active Allergy Reactions Severity Noted Date Comments Povidone-Iodine Hives 07/07/2014 documented as of this encounter (statuses as of 11/23/2018) Medications Medication Sig Dispensed Refills Start Date [...] as of this encounter (statuses as of 11/23/2018) Active Problems Problem Noted Date Wound cellulitis after surgery 04/19/2017 Coronary artery disease involving [place] coronary artery of [place] heart 03/08 without angina pectoris Dyspnea 03/08/2017 COPD (chronic obstructive pulmonary disease) 03/08/2017 Stage 3 chronic kidney disease 03/08/2017 HTN (hypertension) 03/08/2017 Total knee replacement status 03/06/2017 documented as of this encounter (statuses as of 11/23/2018) Social History Tobacco Use Types Packs/Day Years [...] Office Visit Pulmonary Disease Wyatt Aguilera DO [address] [place] [address] Health Maintenance Due Date Last [...] of this encounter Implants Implanted Type Area Landscape Foreman Device Shelf Model / Identifier Expiration Serial / Lot Date Cement CEMENT Right: Biomet 09/23/2020 [id number] / Implanted: Qty: 2 on 03/06/2017 by Cb Monk MD at [facility] Knee [id number] / [id number] Tibial Bearing KNEE Right: [employer] 01/25/2018 [id number] / Implanted: Qty: 1 on 03/06/2017 by Cb Monk MD at [facility] Knee [id number] / [id number] Ps Open Box Femoral Right KNEE Right: Bi[employer] 10/13/2026 [id number] / Implanted: Qty: 1 on 03/06/2017 by Cb Monk MD at [facility] Knee [id number] / [id number] Standard Patella PATELLA Right: [employer]omet 10/28/2021 [id number] / Implanted: Qty: 1 on 03/06/2017 by Cb Monk MD at [facility] Knee [id number] / [id number] Cruciate Tibial Plate PLATE Right: [employer]omet 06/10/2026 [id number] / Implanted: Qty: 1 on 03/06/2017 by Cb Monk MD at [facility] Knee [id number] / [id number] Placental Tissue Matirx-06/12/2017 TISSUE Right: [employer] [...] ID Effective Phone Address Type Group Dates [facility] [id number] 2016-Pres Medicare Adv HEALTHCARE - HEALTHCARE ent PPO MANAGED MEDICARE GOLD MEDICARE [facility] [place] PLAN Effective for [place], all dates [place] [facility] [id number] 2014-Pr [address] [place] [address] documented as of this encounter
--- OUTSIDE RECORDS SUMMARY | 2019-06-14 11:48 | XMS REPORT | Summary of Care ---
:1950 Author Organization [facility] Address [address] [place] [address] Care Team Providers Name Role Phone Pcp, Patient Does Not Have A Primary Care Provider Reason for Visit Reason Comments Follow-up Encounter Details Date Type Department Care Team Description 12/06/2018 Office Visit [facility] ADC Wyatt Aguilera DO Dyspnea on exertion (Primary Dx); Pulmonary Clinic 2660 [facility] Chronic diastolic heart failure; [address] [place] [address] Dr. [facility] Obesity (BMI 35.0-39.9 without comorbidity) [address] [place] [address] Allergies Active Allergy Reactions Severity Noted Date Comments Povidone-Iodine Hives 07/07/2014 documented as of this encounter (statuses as of 12/06/2018) Medications Medication Sig Dispensed Refills Start Date [...] as of this encounter (statuses as of 12/06/2018) Active Problems Problem Noted Date Wound cellulitis after surgery 04/19/2017 Coronary artery disease involving [place] coronary artery of [place] heart 03/08 without angina pectoris Dyspnea 03/08/2017 COPD (chronic obstructive pulmonary disease) 03/08/2017 Stage 3 chronic kidney disease 03/08/2017 HTN (hypertension) 03/08/2017 Total knee replacement status 03/06/2017 documented as of this encounter (statuses as of 12/06/2018) Social History Tobacco Use Types Packs/Day Years [...] Sign Reading Time Taken Comments Blood Pressure 134/74 12/06/2018 9:38 AM CDT Pulse 75 12/06/2018 9:38 AM CDT Temperature - - Respiratory Rate 19 12/06/2018 9:38 AM CDT Oxygen Saturation 97% 12/06/2018 9:38 AM CDT Inhaled Oxygen Concentration - - Weight 105.2 kg (232 lb) 12/06/2018 9:38 AM CDT Height 167.6 cm (5' 6") 12/06/2018 9:38 AM CDT Body Mass Index 37.45 12/06/2018 9:38 AM CDT documented in this encounter Progress Notes Wyatt Aguilera DO - 12/06/2018 10:00 AM CDT [facility] Interventional Pulmonology Clinic Chief Complaint: Dyspnea on exertion History of Present Illness: Valerio Berg is a 67 year old male with past medical hx as below here for follow up for dyspnea on exertion. Has no documented evidence of COPD on spirometry but does have emphysematous changes on CT scan. Also has sleep apnea. With regards to symptoms: has shortness of breath at rest and worse with activity. Improved with rest. Does have some leg swelling. Has been non- compliant with CPAP for last two days as mom has been inhospital with stroke. Also non compliant with diuretics for last couple days for same reason and need to go to [place] to visit mom in hospital. With regards to pulmonary rehab: is participating in this. Other issue is he is requesting letter to get rid of ignition interlock device. States he has shortness of breath and his ecological technical officer asked for a letter. I observed him use the device and despite what appeared to be sub optimal technique he successfully used it twice. Past Medical History: has a past medical history of A-fib, CAD (coronary artery disease), Dyspnea, Hepatitis C, Hyperlipidemia, Hypertension, and Obesity. Past Surgical History: has a past surgical history that includes total hip arthroplasty (Left); [address]85 - [place] ANESTH,KNEE AREA SURGERY (Bilateral); upper arm/ elbow [...] alcohol or use drugs. Review of Systems: General: (-) fever, (-) chills, (-) weight loss, (-) weight gain, (-) fatigue, ( -) malaise Skin: (-) rash, (-) lesion HEENT: (-) headache, (-) change in hearing, (-) change in vision, (-) nasal discharge, (-) sore throat Neck: (-) pain, (-) difficulty swallowing Heme: (-) bleeding disorder Resp: (+) cough, (+) dyspnea on exertion Cardio: (-) chest pain, (-) palpitations, (-) syncope GI: (-) abdominal pain, (-) nausea, (-) vomiting, (-) diarrhea, (-) constipation , (-) melena, (-) hematochezia, (-) hematemesis : (-) dysuria, (-) hematuria Endo: (-) heat intolerance, (-) cold intolerance Neuro: (-) numbness, (-) tingling, (-) weakness Back: (-) pain, (-)spasms VIRGIL: (-) muscle pain, (-) joint pain, (-) claudication Psych: (-) anxiety, (-) depression, (-) psychiatric disorder Objective: BP 134/74 (BP Location: Right arm, Patient Position: Sitting, BP CUFF SIZE: Adult Medium) | Pulse 75 | Resp 19 | Ht 5' 6" (1.676 m) | Wt 232 lb (105.2 kg) | SpO2 97% | BMI 37.45 kg/m General: Alert, in no acute distress Psych: Oriented to person, place, time, and situation Head: Normocephalic, atraumatic Eyes: Conjunctiva clear, extraocular motion intact Mouth: Mucus membranes moist Neck: Supple, trachea midline, no masses Heart: Regular rate and rhythm, no murmurs, rubs, or gallops Lungs: Clear to auscultation bilaterally Abdomen: Soft, non-distended, non-tender to palpation, no masses or organomegaly Ext: 1-2+ pitting lower extremity edema Msk: No clubbing noted Neuro: Normal gait, no focal deficits noted Lymph: No cervical or supraclavicular lymphadenopathy Labs/Studies: AHI [address] thorax - emphysematous changes Pulmonary Function Testing: FEV1 1.92L (62%), FVC 2.56 (65%), Ratio 75% TLC 4.14 (66%) NT pro BNP 939 - 03/09/2017 Assessment: ICD-10-CM ICD-9-CM 1. Dyspnea on exertion R06.09 786.09 2. Chronic diastolic heart failure I50.32 428.32 3. Obesity (BMI 35.0-39.9 without comorbidity) E66.9 278.00 Plan: Emphasized importance of salt restriction C/w diuretics C/w CPAP No indication to prevent need for ignition interlock, can consider decreasing rolling checks C/w auto PAP 5-15 cm H20 documented in this encounter Plan of Treatment [...] of this encounter Implants Implanted Type Area Scoreboard Operator Device Shelf Model / Identifier Expiration Serial / Lot Date Cement CEMENT Right: Biomet 09/23/2020 [id number] / Implanted: Qty: 2 on 03/06/2017 by Cb Monk MD at [facility] Knee [id number] / [id number] Tibial Bearing KNEE Right: [employer] 01/25/2018 [id number] / Implanted: Qty: 1 on 03/06/2017 by Cb Monk MD at [facility] Knee [id number] / [id number] Open Box Femoral Right KNEE Right: [employer] 10/13/2026 [id number] / Implanted: Qty: 1 on 03/06/2017 by Cb Monk MD at [facility] Knee [id number] / [id number] Standard Patella PATELLA Right: [employer] 10/28/2021 [id number] / Implanted: Qty: 1 on 03/06/2017 by Cb oMnk MD at [facility] Knee [id number] / [id number] Cruciate Tibial Plate PLATE Right: [employer] 06/10/2026 [id number] / Implanted: Qty: 1 on 03/06/2017 by Cb Monk MD at [facility] Knee [id number] / [id number] Placental Tissue Matirx-06/12/2017 TISSUE Right: [employer] 2021 [id number] / Implanted: Qty: 1 on 06/12/2017 by Catrachito Zhu MD K[facility] / Placental Tissue Matrix-06/12/2017 TISSUE Right: [employer] 2021 [id number] / Implanted: Qty: 1 on 06/12/2017 by Catrachito Zhu MD Knee HRT [id number] / documented as of this encounter Results Not on filedocumented in this encounter Visit Diagnoses Diagnosis Dyspnea on exertion - Primary Other dyspnea and respiratory abnormality Chronic diastolic heart failure Obesity (BMI 35.0-39.9 without comorbidity) Obesity, unspecified documented in this encounter Insurance Payer Benefit Plan / Subscriber ID Effective Phone Address Type Group Dates [facility] [id number] 2016-Prese Medicare Adv HEALTHCARE - HEALTHCARE nt PPO MANAGED MEDICARE GOLD MEDICARE (Work) [id number] documented as of this encounter
--- OUTSIDE RECORDS SUMMARY | 2019-06-14 11:48 | XMS REPORT | Summary of Care ---
:1950 Author Organization [facility] Address [address] [place] [address] Care Team Providers Name Role Phone Pcp, Patient Does Not Have A Primary Care Provider Reason for Visit Reason Comments Follow-up Encounter Details Date Type Department Care Team Description 12/06/2018 Office Visit [facility] ADC Wyatt Aguilera DO Dyspnea on exertion (Primary Dx); Pulmonary Clinic 2660 [facility] Chronic diastolic heart failure; [address] [place] [address] Dr[facility] Obesity (BMI 35.0-39.9 without comorbidity) [address] [place] [address] Allergies Active Allergy Reactions [...] after surgery 04/19/2017 Coronary artery disease involving [place] coronary artery of [place] heart 03/08 without angina pectoris Dyspnea 03/08/2017 [...] Aguilera DO - 12/06/2018 10:00 AM CDT [facility] Interventional Pulmonology Clinic Chief Complaint: Dyspnea on [...] same reason and need to go to [place] to visit mom in hospital. With regards to pulmonary rehab: is participating in this. Other issue is he is requesting letter to get rid of ignition interlock device. States he has shortness of breath and his [employer] airspace control officer asked for a letter. I observed him use the device and despite what appeared to be sub optimal technique he successfully used it twice. Past Medical History: has a past medical history of A-fib, CAD (coronary artery disease), Dyspnea, Hepatitis C, Hyperlipidemia, Hypertension, and Obesity. Past Surgical History: has a past surgical history that includes total hip arthroplasty (Left); [address] - [place] ANESTH,KNEE AREA SURGERY (Bilateral); upper arm/ elbow [...] of this encounter Implants Implanted Type Area Human Resources Associate Device Shelf Model / Identifier Expiration Serial / Lot Date Cement CEMENT Right: [employer]omet 09/23/2020 [id number] / Implanted: Qty: 2 on 03/06/2017 by Cb Monk MD at [facility] Knee [id number] / [id number] Tibial Bearing KNEE Right: [employer] 01/25/2018 [id number] / Implanted: Qty: 1 on 03/06/2017 by Cb Monk MD at [facility] Knee [id number] / [id number] Open Box Femoral Right KNEE Right: [employer] 10/13/2026 [id number] / Implanted: Qty: 1 on 03/06/2017 by Cb Monk MD at [facility] Knee [id number] / [id number] Standard Patella PATELLA Right: [employer] 10/28/2021 [id number] / Implanted: Qty: 1 on 03/06/2017 by Cb Monk MD at [facility] Knee [id number] / [id number] Cruciate Tibial Plate PLATE Right: [employer] 06/10/2026 [id number] / Implanted: Qty: 1 on 03/06/2017 by Cb Monk MD at [facility] Knee [id number] / [id number] Placental Tissue Matirx-06/12/2017 TISSUE Right: [employer] [...] ID Effective Phone Address Type Group Dates [facility] [id number] 2016-Prese Medicare Adv HEALTHCARE - HEALTHCARE nt PPO MANAGED MEDICARE GOLD MEDICARE (Work) [id number] documented as of this encounter
--- OUTSIDE RECORDS SUMMARY | 2019-06-14 11:49 | XMS REPORT | Summary of Care ---
:1950 Author Organization [facility] Address [address] [place] [address] Care Team Providers Name Role Phone Pcp, Patient Does Not Have A Primary Care Provider Reason for Visit Reason Comments Follow-up Shortness of Breath Encounter Details Date Type Department Care Team Description 04/25/2019 Office Visit [facility] ADC Wyatt Aguilera DO STELLA (obstructive sleep apnea) (Primary Dx); Pulmonary Clinic [address] [facility] Dyspnea on exertion [address] [place] [address] , [address] [address] Allergies Active Allergy Reactions [...] hours. diskIndications: Pulmonary emphysema, unspecified emphysema type pantoprazole (PROTONIX) Take 1 tablet by 30 tablet 11 04/25/2019 Active 40 mg EC mouth daily. tabletIndications: STELLA (obstructive sleep apnea), Dyspnea on exertion documented as of this encounter (statuses as of 04/25/2019) Active Problems Problem Noted Date Wound cellulitis after surgery 04/19/2017 Coronary artery disease involving [place] coronary artery of [place] heart 03/08 without angina pectoris Dyspnea 03/08/2017 [...] Comments Blood Pressure 106/76 04/25/2019 11:33 AM COAL TOWER OPERATOR Pulse 77 04/25/2019 11:33 AM COAL TOWER OPERATOR Temperature - - Respiratory Rate 19 04/25/2019 11:33 AM COAL TOWER OPERATOR Oxygen Saturation 99% 04/25/2019 11:33 AM COAL TOWER OPERATOR Inhaled Oxygen Concentration - - Weight 95.7 kg (211 lb) 04/25/2019 11:33 AM COAL TOWER OPERATOR Height 167.6 cm (5' 6") 04/25/2019 11:33 AM COAL TOWER OPERATOR Body Mass Index 34.06 04/25/2019 11:33 AM COAL TOWER OPERATOR documented in this encounter Progress Notes Wyatt Aguilera DO - 04/25/2019 11:00 AM CST [facility] Interventional Pulmonology Clinic Chief Complaint: Follow [...] history that includes total hip arthroplasty (Left); [address] - [place] ANESTH,KNEE AREA SURGERY (Bilateral); upper [...] help 4. Follow up 3 -4 months Addendum - patient has cough when he lays flat on right or back. May be related to reflux. [facility]. Will trial protonix. documented in this encounter Plan of Treatment Date Type Specialty Care Team Description 08/29/2019 Office Visit Pulmonary Disease Wyatt Aguilera DO [address] [place] [address] Health Maintenance Due Date Last [...] of this encounter Implants Implanted Type Area Solvent Plant Treater Device Shelf Model / Identifier Expiration Serial / Lot Date Cement CEMENT Right: [employer] 09/23/2020 [id number] / Implanted: Qty: 2 on 03/06/2017 by Cb Monk MD at [facility] Knee [id number] / [id number] Tibial Bearing KNEE Right: [employer] 01/25/2018 [id number] / Implanted: Qty: 1 on 03/06/2017 by Cb Monk MD at [facility] K[facility] [id number] / [id number] Open Box Femoral Right KNEE Right: [employer] 10/13/2026 [id number] / Implanted: Qty: 1 on 03/06/2017 by Cb Monk MD at [facility] Knee [id number] / [id number] Standard Patella PATELLA Right: [employer] 10/28/2021 [id number] / Implanted: Qty: 1 on 03/06/2017 by Cb Monk MD at [facility] [id number] / [id number] Cruciate Tibial Plate PLATE Right: [employer] 06/10/2026 [id number] / Implanted: Qty: 1 on 03/06/2017 by Cb Monk MD at [facility] [id number] / [id number] Placental Tissue Matirx-06/12/2017 TISSUE Right: [employer] 2021 [id number] / Implanted: Qty: 1 on 06/12/2017 by Catrachito Zhu MD Knee / Placental Tissue Matrix-06/12/2017 TISSUE Right: [employer] 2021 [id number] / Implanted: Qty: 1 on 06/12/2017 by Catrachito Zhu MD Knee [facility] [id number] / documented as of this encounter Results Not on filedocumented in this encounter Visit Diagnoses Diagnosis STELLA (obstructive sleep apnea) - Primary Obstructive sleep apnea (adult) (pediatric) Dyspnea on exertion Other dyspnea and respiratory abnormality documented in this encounter Insurance Payer Benefit Plan / Subscriber ID Effective Phone Address Type Group Dates [facility] [id number] 2016-Prese Medicare Adv HEALTHCARE - HEALTHCARE nt PPO MANAGED MEDICARE GOLD MEDICARE [phone] [id number] (Work) documented as of this encounter
--- OUTSIDE RECORDS SUMMARY | 2019-06-14 11:49 | XMS REPORT | Summary of Care ---
:1950 Author Organization [facility] Address [address] [place] [address] Care Team Providers Name Role Phone Pcp, Patient Does Not Have A Primary Care Provider Reason for Visit Reason Comments Follow-up Shortness of Breath Encounter Details Date Type Department Care Team Description 04/25/2019 Office Visit [facility] ADC Wyatt Aguilera DO STELLA (obstructive sleep apnea) (Primary Dx); Pulmonary Clinic [address] [facility] Dyspnea on exertion [address] [place] [address] , [address] [phone] Allergies Active Allergy Reactions [...] after surgery 04/19/2017 Coronary artery disease involving assiniboine and gros ventre tribes coronary artery of assiniboine and gros ventre tribes heart 03/08 without angina pectoris Dyspnea 03/08/2017 [...] Comments Blood Pressure 106/76 04/25/2019 11:33 AM FITTING ROOM OPERATOR Pulse 77 04/25/2019 11:33 AM FITTING ROOM OPERATOR Temperature - - Respiratory Rate 19 04/25/2019 11:33 AM FITTING ROOM OPERATOR Oxygen Saturation 99% 04/25/2019 11:33 AM FITTING ROOM OPERATOR Inhaled Oxygen Concentration - - Weight 95.7 kg (211 lb) 04/25/2019 11:33 AM FITTING ROOM OPERATOR Height 167.6 cm (5' 6") 04/25/2019 11:33 AM FITTING ROOM OPERATOR Body Mass Index 34.06 04/25/2019 11:33 AM FITTING ROOM OPERATOR documented in this encounter Progress Notes Wyatt Aguilera DO - 04/25/2019 11:00 AM CST [facility] Interventional Pulmonology Clinic Chief Complaint: Follow [...] history that includes total hip arthroplasty (Left); 65600 - [place] ANESTH,KNEE AREA SURGERY (Bilateral); upper arm/ elbow [...] Office Visit Pulmonary Disease Wyatt Aguilera DO [address] [place] [phone] Health Maintenance Due Date Last Done Comments LUNG CANCER SCREEN: Recommended 02/08/2019 02/08/2018 for age 55-80 with 30 + pack year history HEPATITIS C (HCV) SCREEN 04/26/2019 Postponed from 1950 (Alternative Guidelines) DTaP,Tdap,and Td Vaccines (1 - 04/25/2020 Postponed from 10/10/1959 Tdap) (Alternative Guidelines) Medicare Wellness Visit 04/25/2020 Postponed from 10/09/2013 (Alternative Guidelines) PNEUMOCOCCAL VACCINES 65+ (1 of 2 04/26/2020 Postponed from 10/09/2013 - PCV13) (Alternative Guidelines) Zoster Recombinant Vaccine 04/26/2020 Postponed from 10/09/1998 (SHINGRIX) (1 of 2) (Alternative Guidelines) COLONOSCOPY 03/27/2027 03/27/2017 INFLUENZA VACCINE Completed 11/25/2018 documented as of this encounter Implants Implanted Type Area Inclusion Special Education Teacher Device Shelf Model / Identifier Expiration Serial / Lot Date Cement CEMENT Right: Biomet 09/23/2020 [id number] / Implanted: Qty: 2 on 03/06/2017 by Cb Monk MD at [facility] Knee [id number] / [id number] Tibial Bearing KNEE Right: [employer] 01/25/2018 [id number] / Implanted: Qty: 1 on 03/06/2017 by Cb Monk MD at [facility] Knee [id number] / [id number] Open Box Femoral Right KNEE Right: [employer] 10/13/2026 [id number] / Implanted: Qty: 1 on 03/06/2017 by Cb Monk MD at [facility] Knee [id number] / [id number] Standard Patella PATELLA Right: [employer] 10/28/2021 [id number] / Implanted: Qty: 1 on 03/06/2017 by Cb Monk MD at [facility] Knee [id number] / [id number] Cruciate Tibial Plate PLATE Right: [employer] 06/10/2026 [id number] / Implanted: Qty: 1 on 03/06/2017 by Cb Monk MD at [facility] Knee [id number] / [id number] Placental Tissue Matirx-06/12/2017 TISSUE Right: [employer] 2021 [id number] / Implanted: Qty: 1 on 06/12/2017 by Catrachito Zhu MD Knee / Placental Tissue Matrix-06/12/2017 TISSUE Right: [employer] 2021 [id number] / Implanted: Qty: 1 on 06/12/2017 by Catrachito Zhu MD Knee [facility] [phone] [phone] / documented as of this encounter Results Not on filedocumented in this encounter Visit Diagnoses Diagnosis STELLA (obstructive sleep apnea) - Primary Obstructive sleep apnea (adult) (pediatric) Dyspnea on exertion Other dyspnea and respiratory abnormality documented in this encounter Insurance Payer Benefit Plan / Subscriber ID Effective Phone Address Type Group Dates [facility] [id number] 2016-[facility] Medicare Adv HEALTHCARE - HEALTHCARE nt PPO MANAGED MEDICARE GOLD MEDICARE [phone] [id number] (Work) documented as of this encounter
--- OUTSIDE RECORDS SUMMARY | 2019-06-14 11:49 | XMS REPORT | Summary of Care ---
:1950 Author Organization [facility] Address [address] [place] [address] Care Team Providers Name Role Phone Pcp, Patient Does Not Have A Primary Care Provider Reason for Visit Reason Comments Follow-up Shortness of Breath Encounter Details Date Type Department Care Team Description 04/25/2019 Office Visit [facility] ADC Wyatt Aguilera DO STELLA (obstructive sleep apnea) (Primary Dx); Pulmonary Clinic [address] [facility] Dyspnea on exertion [address] [place] [address] , [address] [phone] Allergies Active Allergy Reactions [...] after surgery 04/19/2017 Coronary artery disease involving kashia coronary artery of kashia heart 03/08 without angina pectoris Dyspnea 03/08/2017 [...] Comments Blood Pressure 106/76 04/25/2019 11:33 AM COMPLIANCE NURSE Pulse 77 04/25/2019 11:33 AM COMPLIANCE NURSE Temperature - - Respiratory Rate 19 04/25/2019 11:33 AM COMPLIANCE NURSE Oxygen Saturation 99% 04/25/2019 11:33 AM COMPLIANCE NURSE Inhaled Oxygen Concentration - - Weight 95.7 kg (211 lb) 04/25/2019 11:33 AM COMPLIANCE NURSE Height 167.6 cm (5' 6") 04/25/2019 11:33 AM COMPLIANCE NURSE Body Mass Index 34.06 04/25/2019 11:33 AM COMPLIANCE NURSE documented in this encounter Progress Notes Wyatt Aguilera DO - 04/25/2019 11:00 AM CST [facility] Interventional Pulmonology Clinic Chief Complaint: Follow [...] history that includes total hip arthroplasty (Left); [address] - [place] ANESTH,KNEE AREA SURGERY (Bilateral); upper arm/ elbow [...] of this encounter Implants Implanted Type Area Youth Minister Device Shelf Model / Identifier Expiration Serial / Lot Date Cement CEMENT Right: [employer] 09/23/2020 [id number] / Implanted: Qty: 2 on 03/06/2017 by Cb Monk MD at [facility] Knee [id number] / [id number] Tibial Bearing KNEE Right: [employer] 01/25/2018 [id number] / Implanted: Qty: 1 on 03/06/2017 by Cb Monk MD at [facility] Knee [id number] / [id number] Open Box Femoral Right KNEE Right: [employer] 10/13/2026 [id number] / Implanted: Qty: 1 on 03/06/2017 by Cb Monk MD at [facility] Knee [id number] / [id number] Standard Patella PATELLA Right: [employer] 10/28/2021 [id number] / Implanted: Qty: 1 on 03/06/2017 by Cb Monk MD at [facility] Knee [id number] / [id number] Cruciate Tibial Plate PLATE Right: [employer] 06/10/2026 [id number] / Implanted: Qty: 1 on 03/06/2017 by Cb Monk MD at [facility] Knee [id number] / [id number] Placental Tissue Matirx-06/12/2017 TISSUE Right: [employer] [...] Effective Phone Address Type Group Dates [facility] [id number] 2016-Prese Medicare Adv HEALTHCARE [facility] MEDICARE GOLD MEDICARE (Home) [place], [place] [phone] (Work) documented as of this encounter
--- OUTSIDE RECORDS SUMMARY | 2019-06-14 11:49 | XMS REPORT | Summary of Care ---
:1950 Author Organization [facility] Address [address] [place] [address] Care Team Providers Name Role Phone Pcp, Patient Does Not Have A Primary Care Provider Reason for Visit Reason Comments Refill Request Encounter Details Date Type Department Care Team Description 04/25/2019 Telephone [facility] ADC Pulmonary Wyatt Aguilera DO Refill Request Clinic [address] , [place] [phone] [place] [address] Allergies Active Allergy Reactions Severity Noted Date Comments Povidone-Iodine Hives 07/07/2014 documented as of this encounter (statuses as of 04/25/2019) Medications Medication Sig Dispensed Refills Start Date End Date Status aspirin 81 mg EC tablet TK 1 T PO D 0 12/23/2016 Active atorvastatin 40 mg TK 1 T PO QD 0 11/02/2016 Active tablet clopidogrel 75 mg TK 1 T PO QD 0 01/04/2017 Active tablet levothyroxine 25 mcg TK 1 T PO QD 6 11/01/2016 Active tablet metoprolol succinate XL TK 1 T PO QD 0 11/02/2016 Active 25 mg 24 hr tablet torsemide 10 mg tablet Take 10 mg by 0 11/02/2016 Active mouth daily. traMADOL 50 mg tablet TK 1 T PO TID PRN 0 11/11/2016 Active fluticasone-salmeterol Inhale 1 Puff 60 Each 11 08/16/2018 Active (ADVAIR DISKUS) 250-50 every 12 (twelve) mcg/dose inhalation hours. diskIndications: Pulmonary emphysema, unspecified emphysema type pantoprazole (PROTONIX) Take 1 tablet by 30 tablet 11 04/25/2019 Active 40 mg EC mouth daily. tabletIndications: STELLA (obstructive sleep apnea), Dyspnea on exertion fluticasone propionate Use 2 Sprays in 16 g 11 04/25/2019 Active 50 mcg/actuation nasal each nostril spray daily. documented as of this encounter (statuses as of 04/25/2019) Active Problems Problem Noted Date Wound cellulitis after surgery 04/19/2017 Coronary artery disease involving quinault coronary artery of quinault heart 03/08 without angina pectoris Dyspnea 03/08/2017 [...] Office Visit Pulmonary Disease Wyatt Aguilera DO [address] [place] [address] Health Maintenance Due Date Last [...] of this encounter Implants Implanted Type Area Proc Tech Device Shelf Model / Identifier Expiration Serial / Lot Date Cement CEMENT Right: [employer]omet 09/23/2020 [id number] / Implanted: Qty: 2 on 03/06/2017 by Cb Monk MD at [facility] Knee [id number] / [id number] Tibial Bearing KNEE Right: [employer] 01/25/2018 [id number] / Implanted: Qty: 1 on 03/06/2017 by Cb Monk MD at [facility] Knee [id number] / [id number] Open Box Femoral Right KNEE Right: [employer] 10/13/2026 [id number] / Implanted: Qty: 1 on 03/06/2017 by Cb Monk MD at [facility] Knee [id number] / [id number] Standard Patella PATELLA Right: [employer] 10/28/2021 [id number] / Implanted: Qty: 1 on 03/06/2017 by Cb Monk MD at [facility] Knee [id number] / [id number] Cruciate Tibial Plate PLATE Right: [employer] 06/10/2026 [id number] / Implanted: Qty: 1 on 03/06/2017 by Cb Monk MD at [facility] Knee [id number] / [id number] Placental Tissue Matirx-06/12/2017 TISSUE Right: [employer] 2021 [id number] / Implanted: Qty: 1 on 06/12/2017 by Catrachito Zhu MD Knee / Placental Tissue Matrix-06/12/2017 TISSUE Right: [employer] 2021 [id number] / Implanted: Qty: 1 on 06/12/2017 by Catrachito Zhu MD Knee [facility] [phone] [phone] / documented as of this encounter Results Not on filedocumented in this encounter Visit Diagnoses Diagnosis Pulmonary emphysema, unspecified emphysema type documented in this encounter Insurance Payer Benefit Plan / Subscriber ID Effective Phone Address Type Group Dates [facility] [id number] 2016-Pres Medicare Adv HEALTHCARE - HEALTHCARE ent PPO MANAGED MEDICARE GOLD MEDICARE [facility] PLAN Effective for [place], all dates [facility] [id number] 2014-Pr [address] [place] [address] documented as of this encounter
[2019-06-14] MEDS ORDERED: FUROSEMIDE 40 MG/4 ML VIAL ONE (12:17)
[2019-06-14 12:38] LABS: Absolute Lymphocytes (CBC) 1.2 K/uL (0.7-4.9); Hematocrit 40.3 % (39.6-49.0); Lymphocytes % 17.5 % (15.3-44.8); MPV 8.1 fL (7.6-11.3); RBC Red Blood Cell Count 4.88 M/uL (4.33-5.43)
[2019-06-14 12:54] LABS: ALT/SGPT 19 U/L (12-78); AST/SGOT 30 U/L (15-37); Albumin 3.6 g/dL (3.4-5.0); Alkaline Phosphatase 101 U/L (45-117); BUN Blood Urea Nitrogen 43 mg/dL (7-18); Bicarbonate 28 mmol/L (21-32); Bilirubin Total 0.4 mg/dL (0.2-1.0); Glucose Level 151 mg/dL (74-106); NT PRO-BNP 1394 pg/mL (<125); Potassium 3.8 mmol/L (3.5-5.1); Protein, Total 7.8 g/dL (6.4-8.2); Sodium Level 140 mmol/L (136-145); Troponin (Emerg Dept Use Only) < 0.02 ng/mL (0.0-0.045)
--- NOTE | 2019-06-14 13:57 | RAD REPORT ---
EXAM DESCRIPTION: RAD - Chest Single View - 06/14/2019 12:58 pm CLINICAL HISTORY: DYSPNEA COMPARISON: Portable July 2018 TECHNIQUE: AP portable chest image was obtained 06/14/2019 12:58 pm . FINDINGS: No focal lung parenchymal process seen. Retrocardiac left base is inherently limited. Hear t and vasculature are normal. No measurable pleural effusion and no pneumothorax. No acute bony abnor mality seen. No acute aortic findings suspected. No worrisome change from comparison. IMPRESSION: No acute cardiopulmonary process.
--- NOTE | 2019-06-14 14:10 | EDPHYS ---
Physician Documentation [facility] Name: Valerio Berg Age: 68 yrs Sex: Male : 1950 Arrival Date: 06/14/2019 Time: 11:48 Bed 14 Private MD: Chapo Veliz C ED Physician Thomas Mckinney HPI: 06/13 12:12 This 68 yrs old Black Male presents to ER via Ambulatory with complaints of Breathing ps1 Difficulty. 12:12 patient has a history of CHF and has had shortness of breath for last week. States he ps1 has orthopnea and dyspnea. Sits upright to breathe. Usually improves with lasix IV. Taking "water pill" regularly. No chest pain. COVID screen negative. . Historical: - Allergies: 12:05 Betadine; ph 12:05 Povidone-Iodine; ph - Home Meds: 14:41 aspirin 81 mg Oral TbEC 1 tab once daily [Active]; bp - PMHx: 12:05 Borderline Diabetes; COPD; Myocardial infarction; ph - PSHx: 12:05 CABG; Knee surgery; hip sx; ph - Immunization history:: Adult Immunizations unknown. - Social history:: Smoking status: Patient denies any tobacco usage or history of. ROS: 12:12 Constitutional: Negative for fever, chills, and weight loss, Eyes: Negative for injury, ps1 pain, redness, and discharge, Cardiovascular: Negative for chest pain, palpitations, and edema, Abdomen/GI: Negative for abdominal pain, nausea, vomiting, diarrhea, and constipation, MS/Extremity: Negative for injury and deformity, Skin: Negative for injury, rash, and discoloration, Neuro: Negative for headache, weakness, numbness, tingling, and seizure. 12:12 Respiratory: Positive for dyspnea on exertion, orthopnea, shortness of breath. Exam: 12:12 Constitutional: This is a well developed, well nourished patient who is awake, alert, ps1 and in no acute distress. Head/Face: Normocephalic, atraumatic. Eyes: Pupils equal round and reactive to light, extra-ocular motions intact. Lids and lashes normal. Conjunctiva and sclera are non-icteric and not injected. Cardiovascular: Regular rate and rhythm. No gallops, murmurs, or rubs. Normal PMI, no JVD. No pulse deficits. Respiratory: Lungs have equal breath sounds bilaterally, clear to auscultation and percussion. No rales, rhonchi or wheezes noted. No increased work of breathing, no retractions or nasal flaring. Skin: Warm, dry with normal turgor. Normal color with no rashes, no lesions, and no evidence of cellulitis. MS/ Extremity: Pulses equal, no cyanosis. Neurovascular intact. Full, normal range of motion. Neuro: Awake and alert, GCS 15, oriented to person, place, time, and situation. Cranial nerves II-XII grossly intact. Sensory grossly intact. Vital Signs: 12:02 BP 128 / 80; Pulse 79; Resp 20; Temp 97.8; Pulse Ox 98% on R/A; Weight 91.17 kg; ph 13:30 BP 119 / 68; Pulse 59; Resp 17; Pulse Ox 97% on R/A; bp 14:37 BP 121 / 75; Pulse 61; Resp 17; Temp 98; Pulse Ox 97% ; bp MDM: 12:15 Patient medically screened. ps1 14:10 Data reviewed: vital signs, nurses notes, lab test result(s), radiologic studies, and ps1 as a result, I will discharge patient. ED course: Labs and imaging cw CHF exacerbation. No respiratory distress. IV lasix in ED. Home with continued diuretics. Follow up with Dr. Veliz / Cardiology for reevaluation. . 06/13 12:12 Order name: CBC with Diff; Complete Time: 13:25 ps1 06/13 12:12 Order name: CMP; Complete Time: 13:25 ps1 06/13 12:12 Order name: BNP; Complete Time: 13:25 ps1 06/13 12:12 Order name: CXR XRAY; Complete Time: 14:08 ps1 06/13 12:12 Order name: Troponin (emerg Dept Use Only); Complete Time: 13:25 ps1 Administered Medications: 12:20 Drug: Lasix 40 mg Route: IVP; Site: right antecubital; bp 14:36 Follow up: Response: No adverse reaction bp Disposition: 06/14/19 14:09 Discharged to Home. Impression: Acute on chronic CHF exacerbation. . - Condition is Stable. - Discharge Instructions: Heart Failure, Sqlp-br-Vofe. - Medication Reconciliation Form, Thank You Letter, Antibiotic Education, Prescription Opioid Use form. - Follow up: Chapo Veliz MD; When: 48 Hours; Reason: Recheck today's complaints, Continuance of care, Re-evaluation by your physician. Follow up: Emergency Department; When: As needed; Reason: Fever > 102 F, Trouble breathing, Worsening of condition. - Problem is an acute exacerbation. - Symptoms have improved. Signatures: Dispatcher [employer] EDTN Mariam Zarco RN RN Avila Mc RN RN bp Thoams Mckinney MD MD ps1 Corrections: (The following items were deleted from the chart) 14:43 14:09 06/14/2019 14:09 Discharged to Home. Impression: Acute on chronic CHF bp exacerbation. . Condition is Stable. Forms are Medication Reconciliation Form, Thank You Letter, Antibiotic Education, Prescription Opioid Use. Follow up: Chapo Veliz; When: 48 Hours; Reason: Recheck today's complaints, Continuance of care, Re-evaluation by your physician. Follow up: Emergency Department; When: As needed; Reason: Fever > 102 F, Trouble breathing, Worsening of condition. Problem is an acute exacerbation. Symptoms have improved. ps1
--- NOTE | 2019-06-14 14:10 | ER ---
Nurse's Notes [facility] Name: Valerio Berg Age: 68 yrs Sex: Male : 1950 Arrival Date: 06/14/2019 Time: 11:48 Bed 14 Private MD: Chapo Veliz C Diagnosis: Acute on chronic CHF exacerbation. Presentation: 06/13 12:02 Chief complaint: Patient states: Non-productive cough and difficulty breathing x 3 ph days, denies fever, states, " Last time I was like this y'all took some fluid off of me and it got better." Reports chest pain w. cough, no distress noted. Coronavirus screen: The patient has NOT traveled to a country currently being monitored by the CDC within the last 14 days. The patient has NOT had contact with any known and/or suspected case of coronavirus. Ebola Screen: No symptoms or risks identified at this time. Initial Sepsis Screen: Does the patient meet any 2 criteria? No. Patient's initial sepsis screen is negative. Does the patient have a suspected source of infection? No. Patient's initial sepsis screen is negative. Risk Assessment: Do you want to hurt yourself or someone else? Patient reports no desire to harm self or others. 12:02 Method Of Arrival: Ambulatory ph 12:02 Acuity: ADRIÁN 3 ph Triage Assessment: 12:05 General: Appears in no apparent distress. comfortable, Behavior is cooperative, bp appropriate for age, anxious. Pain: Denies pain. EENT: No deficits noted. Neuro: No deficits noted. Cardiovascular: Rhythm is sinus rhythm. Respiratory: Reports shortness of breath Onset: The symptoms/episode began/occurred at an unknown time. the patient has mild shortness of breath. GI: No signs and/or symptoms were reported involving the gastrointestinal system. : No signs and/or symptoms were reported regarding the genitourinary system. Derm: No deficits noted. Musculoskeletal: Swelling present in right leg and left leg. Historical: - Allergies: 12:05 Betadine; ph 12:05 Povidone-Iodine; ph - Home Meds: 14:41 aspirin 81 mg Oral TbEC 1 tab once daily [Active]; bp - PMHx: 12:05 Borderline Diabetes; COPD; Myocardial infarction; ph - PSHx: 12:05 CABG; Knee surgery; hip sx; ph - Immunization history:: Adult Immunizations unknown. - Social history:: Smoking status: Patient denies any tobacco usage or history of. Screenin:05 Abuse screen: Denies threats or abuse. Denies injuries from another. Nutritional bp screening: No deficits noted. Tuberculosis screening: No symptoms or risk factors identified. Fall Risk None identified. Assessment: 12:05 General: SEE TRIAGE NOTE. Cardiovascular: Rhythm is sinus rhythm. Respiratory: Airway bp is patent Respiratory effort is even, unlabored, Breath sounds are coarse bilaterally. 13:30 Reassessment: PT [place] ROD MD NOTIFIED. bp 14:38 Reassessment: PT D/C HOME AMBULATORY, DX WITH CHF EXACERBATION. bp Vital Signs: 12:02 BP 128 / 80; Pulse 79; Resp 20; Temp 97.8; Pulse Ox 98% on R/A; Weight 91.17 kg; ph 13:30 BP 119 / 68; Pulse 59; Resp 17; Pulse Ox 97% on R/A; bp 14:37 BP 121 / 75; Pulse 61; Resp 17; Temp 98; Pulse Ox 97% ; bp ED Course: 11:48 Patient arrived in ED. ag5 11:48 Chapo Veliz MD is Private Physician. ag5 11:49 Thomas Mckinney MD is Attending Physician. ps1 11:50 Avila Mc RN is Primary Nurse. bp 12:04 Triage completed. ph 12:05 Arm band placed on Patient placed in an exam room. ph 12:05 Patient has correct armband on for positive identification. Bed in low position. Call bp light in reach. Side rails up X2. 12:20 Inserted saline lock: 20 gauge in right antecubital area, using aseptic technique. bp Blood collected. 13:01 CXR XRAY In Process Unspecified. EDMS 13:30 No provider procedures requiring assistance completed. IV discontinued, intact, bp bleeding controlled, No redness/swelling at site. Pressure dressing applied. 14:08 Chapo Veliz MD is Referral Physician. ps1 Administered Medications: 12:20 Drug: Lasix 40 mg Route: IVP; Site: right antecubital; bp 14:36 Follow up: Response: No adverse reaction bp Outcome: 13:30 Discharged to home ambulatory, with family. bp 13:30 Condition: stable 13:30 Discharge instructions given to patient, Instructed on discharge instructions, follow up and referral plans. Demonstrated understanding of instructions, follow-up care. 14:09 Discharge ordered by . ps1 14:43 Patient left the ED. bp Signatures: Dispatcher [employer] Mariam Holley RN RN ph Peltier, Brian, APURVA RN Thomas Mercedes MD MD ps1 Lori, Yang ag5
[2019-06-14 14:52] VITALS: O2SAT 97
[2019-06-14 14:53] VITALS: BP 121/75; TEMP 98
== END 2019-06-14 14:43 | disposition home or self-care (01) ==
LOC: ER 11:46
DX: I50.23 Acute on chronic systolic (congestive) heart failure (principal); J44.9 Chronic obstructive pulmonary disease, unspecified; E11.9 Type 2 diabetes mellitus without complications; Z79.82 Long term (current) use of aspirin; Z95.1 Presence of aortocoronary bypass graft; Z88.8 Allergy status to other drugs, medicaments and biological substances
CPT/HCPCS: 85025; 36415; 84484; 80053; 83880; 71045; 96374; 99284; J1940

== ENCOUNTER 2019-10-03 21:32 | Emergency (ER) | payer OTHER ==
[2019-10-04 00:50] LABS: Absolute Lymphocytes (CBC) 1.3 K/uL (0.7-4.9); Basophils % 0.9 % (0-1.3); Hematocrit 41.7 % (39.6-49.0); Lymphocytes % 22.7 % (15.3-44.8); MPV 8.6 fL (7.6-11.3); RBC Red Blood Cell Count 5.02 M/uL (4.33-5.43)
[2019-10-04] MEDS ORDERED: ONDANSETRON 4 MG/2 ML VIAL ONE ×2 (01:03→01:38)
[2019-10-04] MEDS ORDERED: MORPHINE 2 MG/ML SYR ONE (01:03)
[2019-10-04] MEDS ORDERED: NA CHLORIDE 0.9% 250 ML ONE (01:03)
[2019-10-04 01:10] LABS: Bilirubin Direct 0.1 mg/dL (0-0.2); Bilirubin Total 0.3 mg/dL (0.2-1.0); Protein, Total 8.5 g/dL (6.4-8.2)
[2019-10-04] MEDS ORDERED: FAMOTIDINE 20 MG/2 ML VIAL IV ONE (01:38)
[2019-10-04] MEDS ORDERED: ROPINIROLE HCL 0.25 MG TAB ONE (03:11)
--- NOTE | 2019-10-04 04:11 | EDPHYS ---
Physician Documentation [facility] Name: Valerio Berg Age: 68 yrs Sex: Male : 1950 Arrival Date: 10/03/2019 Time: 21:34 Bed 13 Private MD: ED Physician Aric Brunner HPI: 10/03 00:40 This 68 yrs old Black Male presents to ER via EMS with complaints of Abdominal Pain. cp 00:40 The patient presents with abdominal pain in the left upper quadrant. cp 00:40 Onset: The symptoms/episode began/occurred today. The symptoms do not radiate. cp Associated signs and symptoms: Pertinent positives: chronic cough, Pertinent negatives: nausea and vomiting, blood in stools, constipation, diarrhea, fever, shortness of breath, testicular pain. Severity of pain: in the emergency department the pain is unchanged despite home interventions. Historical: - Allergies: 10/02 21:38 Betadine; dm5 21:38 Povidone-Iodine; dm5 - PMHx: 21:38 Borderline Diabetes; COPD; Myocardial infarction; dm5 - Immunization history:: Adult Immunizations up to date. - Social history:: Smoking status: Patient/guardian denies using tobacco. ROS: 10/03 00:45 Eyes: Negative for injury, pain, redness, and discharge. cp Constitutional: Negative for body aches, chills, fever, poor PO intake. ENT: Negative for ear pain, sore throat, difficulty swallowing, difficulty handling secretions. Cardiovascular: Positive for chest pain, with cough, Negative for edema, palpitations. Respiratory: Positive for cough, with no reported sputum, Negative for shortness of breath, wheezing. Abdomen/GI: Positive for abdominal pain, Negative for nausea, vomiting, and diarrhea, constipation, black/tarry stool, rectal bleeding. Back: Negative for radiated pain. : Negative for urinary symptoms, testicular pain Neuro: Negative for altered mental status, headache, weakness. All other systems are negative. Exam: 00:45 Constitutional: The patient appears in no acute distress, alert, awake, cp non-diaphoretic, non-toxic, well developed, well nourished. 00:45 Head/Face: Normocephalic, atraumatic. cp 00:45 Eyes: Periorbital structures: appear normal, Conjunctiva: normal, no exudate, no injection, Sclera: no appreciated abnormality, Lids and lashes: appear normal, bilaterally. 00:45 ENT: External ear(s): are unremarkable, Nose: is normal, Mouth: Lips: moist, Oral mucosa: moist, Posterior pharynx: is normal, airway is patent. 00:45 Neck: ROM/movement: is normal, is supple, without pain, no range of motions limitations. 00:45 Chest/axilla: Inspection: normal. 00:45 Cardiovascular: Rate: normal, Rhythm: regular, Edema: is not appreciated, JVD: is not appreciated. 00:45 Respiratory: the patient does not display signs of respiratory distress, Respirations: normal, no use of accessory muscles, no retractions, no splinting, no tachypnea, labored breathing, is not present, Breath sounds: decreased breath sounds, are not appreciated, stridor, is not appreciated, wheezing: is not appreciated. 00:45 Abdomen/GI: Inspection: abdomen appears normal, Bowel sounds: active, all quadrants, Palpation: soft, in all quadrants, moderate abdominal tenderness, in the left upper quadrant, rebound tenderness, is not appreciated, voluntary guarding, is elicited in the left upper quadrant. 00:45 Back: pain, is absent, ROM is normal. 02:50 ECG was reviewed by the Attending Physician. Vital Signs: 10/02 21:34 BP 101 / 70; Pulse 58; Resp 18; Temp 97.7; Pulse Ox 100% on R/A; Pain 0/10; dm5 07 00:25 BP 131 / 86; Pulse 77; Resp 18; Pulse Ox 98% on R/A; Pain 10/10; lp1 01:35 BP 118 / 74; Pulse 65; Resp 18; Pulse Ox 96% on R/A; lp1 04:38 BP 108 / 72; Pulse 82; Resp 18; Pulse Ox 96% on R/A; lp1 MDM: 00:39 Patient medically screened. cp 01:00 Differential diagnosis: appendicitis, bowel obstruction, cholecystitis, Cholelithiasis, cp diverticulitis, non-specific abd pain, pancreatitis, Ureterolithiasis, urinary tract infection, pneumonia. 04:10 Data reviewed: vital signs, nurses notes, lab test result(s), EKG, radiologic studies, cp CT scan, plain films. 04:10 Test interpretation: by ED physician or midlevel provider: ECG, chest xray negative for cp focal pneumonia. Counseling: I had a detailed discussion with the patient and/or guardian regarding: the historical points, exam findings, and any diagnostic results supporting the discharge/admit diagnosis, lab results, radiology results, to return to the emergency department if symptoms worsen or persist or if there are any questions or concerns that arise at home. Response to treatment: the patient's symptoms have markedly improved after treatment, and as a result, I will discharge patient. Special discussion: Based on the patient's Hx, exam, and Dx evaluation, there is no indication for emergent surgery or inpatient Tx. It is understood by the patient/guardian that if the Sx's persist or worsen they need to return immediately for re-evaluation. 10/03 00:34 Order name: Basic Metabolic Panel; Complete Time: : mw2 10/03 01:19 Interpretation: Normal except: NA 135; BUN 48; CRE 2.28; GFR 35. 10/03 00:34 Order name: CBC with Diff; Complete Time: mw2 10/03 00:34 Order name: Hepatic Function; Complete Time: mw2 10/03 00:34 Order name: Lipase; Complete Time: :19 mw2 10/03 01:21 Order name: XRAY Chest (1 view) 10/03 01:21 Order name: CT Abd/Pelvis - Without Contrast cp 10/03 00:34 Order name: IV Saline Lock; Complete Time: 00:36 mw2 10/03 00:34 Order name: Labs collected and sent; Complete Time: 00:36 mw2 10/03 02:17 Order name: EKG; Complete Time: 02:18 cp 10/03 02:17 Order name: EKG - Nurse/Tech; Complete Time: 02:48 cp EC:50 Rate is 70 beats/min. Rhythm is regular. MS interval is normal. QRS interval is cp prolonged at 142 msec. QT interval is normal. T waves are Inverted in leads aVR, V2, V3. Interpreted by me. Reviewed by me. Administered Medications: 01:01 Drug: NS 0.9% 250 ml Route: IV; Rate: bolus; Site: right antecubital; lp1 01:34 Follow up: IV Status: Completed infusion; IV Intake: 250ml lp1 01:02 Drug: Zofran (Ondansetron) 4 mg Route: IVP; Site: right antecubital; lp1 01:34 Follow up: Response: No adverse reaction lp1 01:02 Drug: morphine 2 mg Route: IVP; Site: right antecubital; lp1 01:34 Follow up: Response: Marked relief of symptoms; Pain is decreased lp1 01:34 Drug: Pepcid 20 mg Route: IVP; Site: right antecubital; lp1 02:50 Follow up: Response: No adverse reaction lp1 04:00 Drug: Requip 0.5 mg Route: PO; lp1 04:36 Follow up: Response: No adverse reaction lp1 04:36 Drug: Tussionex Pennkinetic ER 5 ml Route: PO; lp1 04:37 Follow up: Response: Medication administered at discharge. lp1 04:38 Not Given (Other Intervention Used): Zofran (Ondansetron) 4 mg IVP once; over 2 minutes lp1 Disposition: 06:46 Co-signature as Attending Physician, Aric Brunner MD. mh7 Disposition: 10/04/19 04:10 Discharged to Home. Impression: Other abdominal pain, Cough - chronic, Chronic kidney disease, unspecified. - Condition is Stable. - Discharge Instructions: Abdominal Pain, Adult, Cough, Adult, Chronic Kidney Disease, Adult. - Prescriptions for Bentyl 20 mg Oral Tablet - take 1 tablet by ORAL route every 6 hours As needed; 20 tablet. Tessalon Perles 100 mg Oral Capsule - take 2 capsule by ORAL route every 8 hours As needed; 20 capsule. Albuterol Sulfate 90 mcg/actuation - inhale 1-2 puff by INHALATION route every 4-6 hours; 1 Inhaler. - Medication Reconciliation Form, Thank You Letter, Antibiotic Education, Prescription Opioid Use form. - Follow up: Private Physician; When: 1 - 2 days; Reason: Recheck today's complaints. - Problem is new. - Symptoms have improved. Signatures: Dispatcher [employer] July Franklin RN RN dm5 Kylie Ac RN RN lp1 Giancarlo Velarde PA PA cp [place], MyKena 2 Aric Brunner MD MD 7 Corrections: (The following items were deleted from the chart) 02:18 00:48 Abdomen Pelvis W Con+CT.RAD.BRZ ordered. EDMA EDMS 04:12 04:10 10/04/2019 04:10 Discharged to Home. Impression: Other abdominal pain; Cough - cp chronic. Condition is Stable. Forms are Medication Reconciliation Form, Thank You Letter, Antibiotic Education, Prescription Opioid Use. Follow up: Private Physician; When: 1 - 2 days; Reason: Recheck today's complaints. Problem is new. Symptoms have improved. cp 05:09 04:12 10/04/2019 04:10 Discharged to Home. Impression: Other abdominal pain; Cough - lp1 chronic; Chronic kidney disease, unspecified. Condition is Stable. Discharge Instructions: Abdominal Pain, Adult, Cough, Adult. Forms are Medication Reconciliation Form, Thank You Letter, Antibiotic Education, Prescription Opioid Use. Follow up: Private Physician; When: 1 - 2 days; Reason: Recheck today's complaints. Problem is new. Symptoms have improved. cp
--- NOTE | 2019-10-04 04:11 | ER ---
Nurse's Notes [facility] Name: Valerio Berg Age: 68 yrs Sex: Male : 1950 Arrival Date: 10/03/2019 Time: 21:34 Bed 13 Private MD: Diagnosis: Other abdominal pain;Cough-chronic;Chronic kidney disease, unspecified Presentation: 10/02 21:34 Chief complaint: EMS states: lower abdominal pain LUQ, cramping sudden, fall 3 days ago dm5 in the bathtub. Coronavirus screen: Patient denies a cough. Patient reports shortness of breath or difficulty breathing. Patient denies measured and/or subjective temperature greater than 100.4F prior to today's visit. Patient reports travel on a cruise ship or to a country the [facility] currently lists as an affected area. Patient denies contact with known and/or suspected case of COVID-19. Ebola Screen: Patient negative for fever greater than or equal to 101.5 degrees Fahrenheit, and additional compatible Ebola Virus Disease symptoms Patient denies exposure to infectious person. Patient denies travel to an Ebola-affected area in the 21 days before illness onset. No symptoms or risks identified at this time. 21:34 Method Of Arrival: EMS: [facility] dm5 21:34 Acuity: ADRIÁN 3 dm5 10/03 00:06 Initial Sepsis Screen: Does the patient meet any 2 criteria? No. Patient's initial lp1 sepsis screen is negative. Does the patient have a suspected source of infection? No. Patient's initial sepsis screen is negative. Risk Assessment: Do you want to hurt yourself or someone else? Patient reports no desire to harm self or others. Onset of symptoms was October 04, 2019. Historical: - Allergies: 10/02 21:38 Betadine; dm5 21:38 Povidone-Iodine; dm5 - PMHx: 21:38 Borderline Diabetes; COPD; Myocardial infarction; dm5 - Immunization history:: Adult Immunizations up to date. - Social history:: Smoking status: Patient/guardian denies using tobacco. Screenin/10 00:27 Abuse screen: Denies threats or abuse. Denies injuries from another. Nutritional lp1 screening: No deficits noted. Tuberculosis screening: No symptoms or risk factors identified. Fall Risk None identified. Assessment: 00:26 General: Appears in no apparent distress. uncomfortable, Behavior is appropriate for lp1 age. Pain: Complains of pain in abdomen and left arm Pain currently is 10 out of 10 on a pain scale. Aggravated by Patient states abdominal pain with coughing. Neuro: Level of Consciousness is awake, alert, obeys commands, Oriented to person, place, situation. Cardiovascular: Patient's skin is warm and dry. Respiratory: Reports cough that is Respiratory effort is even, unlabored. GI: Abdomen is non-distended, Bowel sounds present X 4 quads. Abd is soft and non tender X 4 quads. Reports pain with coughing. : No signs and/or symptoms were reported regarding the genitourinary system. EENT: No signs and/or symptoms were reported regarding the EENT system. Derm: Skin is intact, Skin is dry, Skin is normal. Musculoskeletal: Reports pain in left arm States pain to left arm ":feels like a cramp"; hx of cramping to L arm. 01:34 Reassessment: Patient appears in no apparent distress at this time. Patient is alert, lp1 oriented x 3, equal unlabored respirations, skin warm/dry/pink. Patient states pain to left arm relieved at this time; States he has had this cough "for years and no one can figure it out" Patient states feeling better. 02:09 Reassessment: Patient to bathroom at this time. lp1 02:48 Reassessment: Patient showing prescription for Ropinirole 0.5mg PO that he takes as lp1 home med for cramping; Verbal order for Ropinirole 0.5mg PO now. 04:37 Reassessment: Patient appears in no apparent distress at this time. Patient is alert, lp1 oriented x 3, equal unlabored respirations, skin warm/dry/pink. Patient states feeling better. Vital Signs: 10/02 21:34 BP 101 / 70; Pulse 58; Resp 18; Temp 97.7; Pulse Ox 100% on R/A; Pain 0/10; dm5 10/03 00:25 BP 131 / 86; Pulse 77; Resp 18; Pulse Ox 98% on R/A; Pain 10/10; lp1 01:35 BP 118 / 74; Pulse 65; Resp 18; Pulse Ox 96% on R/A; lp1 04:38 BP 108 / 72; Pulse 82; Resp 18; Pulse Ox 96% on R/A; lp1 ED Course: 10/02 21:34 Patient arrived in ED. dm5 21:37 Triage completed. dm5 10/03 00:08 Giancarlo Velarde PA is PHCP. cp 00:08 Aric Brunner MD is Attending Physician. cp 00:25 Kylie Ac, APURVA is Primary Nurse. lp1 00:26 Inserted saline lock: 22 gauge in right antecubital area, using aseptic technique. lp1 00:28 Arm band placed on. lp1 00:28 Patient has correct armband on for positive identification. Placed in gown. Call light lp1 in reach. Pulse ox on. NIBP on. 01:35 No provider procedures requiring assistance completed. lp1 01:37 XRAY Chest (1 view) In Process Unspecified. EDMS 03:22 CT Abd/Pelvis - Without Contrast In Process Unspecified. EDMS 04:37 IV discontinued, No redness/swelling at site. Pressure dressing applied. lp1 Administered Medications: 01:01 Drug: NS 0.9% 250 ml Route: IV; Rate: bolus; Site: right antecubital; lp1 01:34 Follow up: IV Status: Completed infusion; IV Intake: 250ml lp1 01:02 Drug: Zofran (Ondansetron) 4 mg Route: IVP; Site: right antecubital; lp1 01:34 Follow up: Response: No adverse reaction lp1 01:02 Drug: morphine 2 mg Route: IVP; Site: right antecubital; lp1 01:34 Follow up: Response: Marked relief of symptoms; Pain is decreased lp1 01:34 Drug: Pepcid 20 mg Route: IVP; Site: right antecubital; lp1 02:50 Follow up: Response: No adverse reaction lp1 04:00 Drug: Requip 0.5 mg Route: PO; lp1 04:36 Follow up: Response: No adverse reaction lp1 04:36 Drug: Tussionex Pennkinetic ER 5 ml Route: PO; lp1 04:37 Follow up: Response: Medication administered at discharge. lp1 04:38 Not Given (Other Intervention Used): Zofran (Ondansetron) 4 mg IVP once; over 2 minutes lp1 Intake: 01:34 IV: 250ml; Total: 250ml. lp1 Outcome: 04:10 Discharge ordered by . cp 04:37 Discharged to home ambulatory. lp1 04:37 Condition: good 04:37 Discharge instructions given to patient, Instructed on discharge instructions, follow up and referral plans. medication usage, Demonstrated understanding of instructions, follow-up care, medications, Prescriptions given X 3. 05:09 Patient left the ED. lp1 Signatures: Dispatcher [employer] July Franklin RN RN dm5 Kylie Ac RN RN lp1 Giancarlo Velarde, PA PA cp
[2019-10-04] MEDS ORDERED: HYDROCODONE/CHLORPHEN 5 ML/OSYR ONE (04:27)
[2019-10-04 06:16] VITALS: TEMP 97.7
[2019-10-04 06:19] VITALS: O2SAT 96
[2019-10-04 06:20] VITALS: BP 108/72
--- NOTE | 2019-10-04 08:43 | RAD REPORT ---
EXAM DESCRIPTION: RAD - Chest Single View - 10/04/2019 1:37 am CLINICAL HISTORY: COUGH Chest pain. COMPARISON: Chest Single View dated 06/14/2019; Chest Single View dated 08/11/2018; Abdomen Acute Seri es dated 07/25/2018; Chest Single View dated 06/24/2018 FINDINGS: Portable technique limits examination quality. The lungs are underinflated with atelectasis in the lung bases. The heart is moderately enlarged in s ize. Sternotomy wires are present. IMPRESSION: Underinflated lungs.
--- NOTE | 2019-10-04 18:40 | RAD REPORT ---
EXAM DESCRIPTION: CT ABDOMEN AND PELVIS WITHOUT CONTRAST CLINICAL HISTORY: ABD PAIN COMPARISON: 08/11/2018 TECHNIQUE: CT of the abdomen and pelvis without IV contrast. Evaluation of the solid organs and vasc ulature is suboptimal due to lack of IV contrast. Motion artifact. FINDINGS: Lung Bases: The visualized lung bases are clear. Prior median sternotomy. Atheroscleroti c vascular calcification. Bones: Degenerative endplate spondylosis, facet arthropathy, and disc height narrowing. Degenerative change of the sacroiliac joints and right hip. Left total hip arthroplasty. Abdomen: Liver: The liver has normal size and density. Gallbladder: No calcified gallstones. Spleen, Pancreas, and Adrenal Glands: The spleen, pancreas, and adrenal glands are unremarkable. Kidneys: The kidneys have normal size without evidence of hydronephrosis. No obstructing ureteral michael culi. Vasculature: Aortoiliac atherosclerosis. IVC is unremarkable. Stomach: The stomach and duodenum have normal course. Other: No free intraperitoneal air. No free fluid or lymphadenopathy. Pelvis: Bladder: Urinary bladder is unremarkable. Bowel: No dilated loops of large or small bowel. Appendix: Normal appendix. Pelvis: Prostate is not enlarged. IMPRESSION: 1. No acute inflammatory or obstructive process identified. This exam was performed according to our departmental dose-optimization program, which includes autom ated exposure control, adjustment of the mA and/or kV according to patient size and/or use of iterati ve reconstruction technique. Electronically signed by: Bud Vega 10/04/2019 3:32 AM CDT Due to temporary technical issues with the PACS/Fluency reporting system, reports are being signed by the in house radiologist without review as a courtesy to ensure prompt reporting. The interpreting r adiologist is fully responsible for the content of the report.
== END 2019-10-04 05:09 | disposition home or self-care (01) ==
LOC: ER 21:32
DX: R10.9 Unspecified abdominal pain (principal); R05 Cough; N18.9 Chronic kidney disease, unspecified
CPT/HCPCS: 96365; 85025; 80048; 36415; 80076; 83690; 74176; 71045; 96375; 99284; J2270; J7050; J2405

== ENCOUNTER 2020-06-29 11:22 | Inpatient (IN) | payer OTHER ==
--- OUTSIDE RECORDS SUMMARY | 2020-06-29 11:28 | XMS REPORT | Continuity of Care Document ---
:1950 Author Organization [facility] t Address [address] [place] [address] Care Team Providers Name Role Phone Only, Test Attending Clinician Unavailable Aguilera Attending Clinician Ana Benedict Attending Clinician Ana Benedict Admitting Clinician Problems Condition Condition Condition Status Onset Resolution Last Treating Co mments Source Name Details Category Date Date Treatment Clinician Date NSTEMI Diagnosis Active 2016-06-15 Mem oria 3- 11:09:00 l NSTEMI 00:00: [place] 00 Active 06/15/2016 [facility] ACUTE Diagnosis Active 2016-07-19 Mem oria CHEST PAIN - 21:59:00 l ACUTE 00:00: Ty CHEST PAIN 00 Active 06/15/2016 [facility] CHEST Diagnosis Active 2016-07-19 Mem oria PAIN, 21:59:00 l UNSPECIFIE CHEST Soumya nn D PAIN, UNSPECIFIE D Active [facility] Mild Problem Resolve 2018-08-06 2018-08-06 Memoria chronic d 1-01 13:34:33 13:34:33 l obstructiv Mild 00:00: Rafat n e chronic 00 pulmonary obstructiv disease e (disorder) pulmonary disease (disorder) Resolved 03/27/2012 Problem 08/06/2018 [facility] Allergies, Adverse Reactions, Alerts Allergy Allergy Status Severity Reaction(s) Onset Inactive Treating Comm ents Source Name Type Date Date Clinician Betadine Betadine Active oM [facility] Social History Smoking Status Start Date Stop Date Source Social History 2016-06-15 16:58:56 2016-06-15 16:58:56 [facility] Medications Ordered Filled Start Stop Current Ordering Indication Dosage Frequency Signature Comments Components Source Medication Medication Date Date Medication? Clinician (SIG) Name Name lisinopril Yes 2.5 mg = 1 M emoria 2.5 mg oral 4-06 tab, PO, l tablet 13:46: Daily, # [place] 00 30 tab, 0 Refill(s) AMIODarone Yes 200 mg = 1 M emoria 200 mg oral 4-06 tab, PO, l tablet 13:46: BID, [place] 00 please start this regimen after 1 week of 400 mg PO BID for 1 week, # 60 tab, 0 Refill(s) Acetaminoph Yes 2 tab, PO, Memoria en 300 MG / 4-06 Q6H, PRN l Codeine 13:46: Pain Score Herm jigna Phosphate 00 4-6, X 5 30 MG Oral day, # 40 Tablet tab, 0 [Tylenol Refill(s) with Codeine #3] 200 ACTUAT Yes 2 puff, Danilo jerry Albuterol 4-06 INHALATION l 0.09 13:46: , QID, PRN Ty MG/ACTUAT 00 for Metered wheezing, Dose # 25 gm, 0 Inhaler Refill(s) [Proventil] Advair Yes 1 puff, Memoria Diskus 250 4-06 INHALATION l mcg-50 mcg 13:46: , BID, # Her cazares inhalation 00 60 puff, 0 powder Refill(s) torsemide Yes 10 mg = 1 Mem oria 10 mg oral 4-06 tab, PO, l tablet 13:46: Daily, # Ty 00 30 tab, 0 Refill(s) metoprolol Yes 25 mg = 1 Me moria 25 mg oral 4-06 tab, PO, l tablet, 13:46: Daily, # Rafat n extended 00 30 tab, 0 release Refill(s) clopidogrel Yes 75 mg = 1 M emoria 75 mg oral 4-06 tab, PO, l tablet 13:46: Daily, # Ty 00 30 tab, 0 Refill(s) atorvastati Yes 40 mg = 1 M emoria n 40 mg 4-06 tab, PO, l oral tablet 13:46: Bedtime, # [place] 00 30 tab, 0 Refill(s) aspirin 81 Yes 81 mg = 1 Me moria mg tablet, 4-06 tab, PO, l enteric 13:46: Daily, # Rafat n coated 00 100 tab, 0 Refill(s) 12 HR Yes 600 mg = 1 Memori a Guaifenesin 4-06 tab, PO, l 600 MG 13:46: Q12H, PRN Rafat n Extended 00 Congestion Release , X 7 day, Tablet # 14 tab, [Mucinex] 0 Refill(s) Amiodarone No Notes: Memor ia -06 (Same as: l 12:15: Cordarone) torsemide No Notes: Memori a -05 (Same As: l 14:00: Demadex) Amiodarone No Notes: Memor ia -04 (Same as: l 14:06: Cordarone) metoprolol No Notes: Memor ia extended - (Same as: l release 14:00: Toprol XL) Herm Do Not Crush atorvastati No Notes: Danilo jerry n 4-04 (Same as: l 02:00: Lipitor) chlorhexidi No Notes: Danilo jerry ne 4-03 (Same As: l gluconate 14:00: Hibiclens) He rmann 40 MG/ML 00 Medicated Liquid Soap Glucagon No 1 mg, Memoria 06-26 Route: IM, l 15:21: Drug form: [place] 00 PDR/INJ, PRN, Dosing Weight 103.653, kg, PRN Blood Glucose Results, Start date: 06/26/16 10:21:00 CDT, Duration: 30 day, Stop date: 07/26/16 10:20:00 CDT Dextrose No 25 gm, 50 Danilo jerry 50% Syringe 06-26 mL, Route: l 15:21: IVP, Drug [place] 00 Form: INJ, Dosing Weight 103.653, kg, PRN, PRN Blood Glucose Results, Start date: 06/26/16 10:21:00 CDT, Duration: 30 day, Stop date: 07/26/16 10:20:00 CDT Insulin, No Notes: Memoria Aspart, 06-26 Roll in l Human 15:21: palms of Ty hands gently; Do not shake vigorously . (Same as: NovoLOG) "single patient use only" WASTE: F/P - Black; E - Municipal Trash Bin Stable for 28 days at room temperatur e. Expires in days from ____Date Lasix No Notes: Memoria 06-26 (Same as: l 12:30: Lasix) [place] 00 albumin No Notes: Memoria human 5% 06-26 LOT#: l intravenous 12:30: Ty solution 00 ___ Mfg: WASTE: F/P - Red; E -Red (Same as: Albuminar) "blood product derivative " glucagon No 1 mg, Memoria 06-26 Route: l 03:17: INJ, Drug Ty 00 form: PDR/INJ, PRN, PRN Blood Glucose Results, Start date: 06/25/16 22:17:00 CDT, Duration: 30 day, Stop date: 07/25/16 22:16:00 CDT Dextrose No 50 mL, Memoria 50% in 06-26 Route: l Water IV 03:17: IVP, Start Her date: 06/25/16 22:17:00 CDT, Duration: 30 day, Stop date: 07/25/16 22:16:00 CDT, PRN Blood Glucose Results insulin No Notes: Memoria aspart 06-26 Roll in l 03:17: palms of [place] 00 hands gently; Do not shake vigorously . (Same as: NovoLOG) "single patient use only" WASTE: F/P - Black; E - Municipal Trash Bin Stable for 28 days at room temperatur e. Expires in days from ____Date atorvastati No Notes: Danilo jerry n 06-26 (Same As: l 02:00: Lipitor) [place] 00 Lovenox No Notes: Memoria 06-26 (Same as: l 01:00: Lovenox) Dilaudid No 0.5 mg, Memori a 06-25 0.5 mL, l 23:54: Route: Ty IVP, Drug form: INJ, ONCE, Dosing Weight 103.653, kg, Priority: STAT, Start date: 06/25/16 18:54:00 CDT, Stop date: 06/25/16 18:54:00 CDT pantoprazol No Notes: Danilo jerry e - Tablet l 14:00: should not be chewed or crushed. (Same as: Protonix) Mupirocin No 1 appl, Memor ia 0.02 MG/MG 06-25 Route: l Topical 14:00: NASAL, [place] Ointment 00 BID, Drug form: OINT, Start date: 06/25/16 9:00:00 CDT, Duration: 5 day, Stop date: 06/29/16 17:00:00 CDT clopidogrel No Notes: Danilo jerry - (Same As: l 14:00: Plavix) Aspirin 325 No 325 mg, Mem oria MG Enteric 06-25 Route: PO, l Coated 14:00: Drug form: Soumya nn Tablet 00 ECTAB, Daily, Dosing Weight 102.926, kg, Start date: 06/25/16 9:00:00 CDT, Duration: 30 day, Stop date: 07/24/16 9:00:00 CDT heparin No Notes: Memoria 06-25 porcine l 13:00: heparin [place] 00 vancomycin No 2001 mg: Me moria 4-01 infuse l 06:30: over 2.5 Ty 00 hours cefuroxime No Notes: Memor ia + sodium 4-01 (Same As: l chloride 06:00: Kefurox, Soumya nn 0.9% INJ 00 Zinacef) 100 mL MEDICATION WASTE Product Size: 1500 mg Product Wasted: ___ mg Vancomycin No 1,554.795 Me moria 4-01 mg, Route: l 02:00: IVPB, Drug form: INJ, Q12H, Dosing Weight 103.653, kg, Time Critical Medication , Start date: 06/24/16 21:00:00 CDT, Duration: 2 doses or times, Stop date: 06/25/16 9:00:00 CDT chlorhexidi No Notes: Danilo jerry ne -01 (Same As: l gluconate 02:00: Peridex) Herm jigna 1.2 MG/ML 00 Mouthwash Aspirin 325 No Notes: Danilo jerry MG Oral 4-01 Take with l Tablet 02:00: food. [place] 00 EPINEPHrine No Notes: Danilo jerry 4 mg + 3-31 (Same as: l sodium 23:38: Adrenalin) Soumya nn chloride 00 Suremed - 0.9% INJ Injectable 246 mL drug used as inhalation treatment. MEDICATION WASTE Product Size: 1 mg Product Wasted: ___ mg insulin No Notes: Memoria aspart 3-31 Roll in l 23:37: palms of [place] 00 hands gently; Do not shake vigorously . (Same as: NovoLOG) "single patient use only" WASTE: F/P - Black; E - Municipal Trash Bin Stable for 28 days at room temperatur e. Expires in days from ____Date insulin No Notes: Memoria aspart 3-31 Roll in l 23:36: palms of [place] 00 hands gently; Do not shake vigorously . (Same as: NovoLOG) "single patient use only" WASTE: F/P - Black; E - Municipal Trash Bin Stable for 28 days at room temperatur e. Expires in days from ____Date insulin reg No Notes: Danilo jerry 100 unit-NS 06-24 Final l 100mL 100 23:35: Concentrat He rmann unit 00 ion 1unit/1ml WASTE: F/P - Black; E - Municipal Trash Bin insulin reg No Notes: Danilo jerry 100 unit-NS 06-24 Final l 100mL 100 23:34: Concentrat He rmann unit 00 ion 1unit/1ml WASTE: F/P - Black; E - Municipal Trash Bin albuterol No Notes: SEE Me moria 06-24 RT l 23:16: DOCUMENTAT Ty ION (Same as: Proventil) Fentanyl No Notes: Memoria 06-24 Concentrat l 23:00: ion is 20 Ty 00 micrograms /ml metoprolol No Notes: Memor ia tartrate 06-24 (Same as: l 23:00: Lopressor) Cefuroxime No Notes: Memor ia 06-24 (Same As: l 23:00: Kefurox, [place] 00 Zinacef) MEDICATION WASTE Product Size: 1500 mg Product Wasted: ___ mg PHOS-NaK No Notes: Memoria 06-24 (Same as: l 22:44: Phos-NaK) Each 1.5 gm pkt has 250mg phosphorou s. Mix w/2.5oz water and stir. potassium No Notes: Memori a phosphate + 06-24 (Same as: l sodium 22:44: K chloride 00 Phosphate. 0.9% INJ ) 1 mMol 250 mL phoshate has 1.47 mEq potassium Infuse over 4 hours Calcium No Notes: Memoria Gluconate 06-24 WASTE: F/P l 22:44: - Sink; E [place] 00 - Municipal Trash Bin Magnesium No Notes: Memori a Oxide 06-24 (Same as: l 22:44: Mag-Ox Ty 00 400) Magnesium oxide 577tc=003y g elemental magnesium Dose=____m g magnesium oxide (___mg elemental magnesium) Magnesium No Notes: Memori a Sulfate 3-31 WASTE: F/P l 22:44: - Sink; E Ty 00 - Municipal Trash Bin potassium No Notes: Memori a chloride 3-31 (Same as: l 22:44: Potassium [place] Chloride) Calcium No Notes: Memoria Carbonate 3-31 (Same As: l 500 MG 22:44: Tums) [place] Chewable 00 Calcium Tablet Carbonate 500 mg = 200 mg elemental calcium Dose = mg calcium carbonate ( mg elemental calcium) Insulin, No Notes: Memoria Aspart, 3-31 Roll in l Human 22:44: palms of Ty hands gently; Do not shake vigorously . (Same as: NovoLOG) "single patient use only" WASTE: F/P - Black; E - Municipal Trash Bin Stable for 28 days at room temperatur e. Expires in days from ____Date sodium No 45 mmol, Memoria phosphate + 3-31 15 mL, l sodium 22:44: Route: Ty chloride 00 IVPB, PRN, 0.9% INJ Dosing 250 mL Weight 103.653, kg, PRN Abnormal Lab Result, Start date: 06/24/16 17:44:00 CDT, Duration: 30 day, Stop date: 07/24/16 17:43:00 CDT, FOR ICU USE ONLY potassium No Notes: Memori a phosphate 3-31 (Same as: l 22:44: K [place] Phosphate) sodium No 15 mmol, Memoria phosphate 3-31 250 mL, l 22:44: Route: Ty 00 IVPB, Drug form: INJ, PRN, Dosing Weight 103.653, kg, PRN Abnormal Lab Result, Start date: 06/24/16 17:44:00 CDT, Duration: 30 day, Stop date: 07/24/16 17:43:00 CDT, FOR ICU USE ONLY Naloxone No Notes: Memoria 3-31 Same as l 22:44: Narcan [place] Saline No Notes: Memoria Flush 0.9% 3-31 (Same as: l 22:44: BD [place] 00 Posiflush) Dulcolax No Notes: Memoria Laxative 06-24 (Same As: l 22:44: Dulcolax, Ty Bisco-Lax) Lactulose No Notes: Memori a 667 MG/ML 06-24 (Same l Oral 22:44: as:Chronul [place] Solution 00 ac) albumin No Notes: Memoria human 5% 06-24 LOT#: l intravenous 22:44: Ty solution 00 ___ Mfg: WASTE: F/P - Red; E -Red (Same as: Albuminar) "blood product derivative " Acetaminoph No Notes: Do M emoria en 300 MG / 06-24 not exceed l Codeine 22:44: 4gm/day of Herm jigna Phosphate acetaminop 30 MG Oral hen. Tablet (Same as: [Tylenol Tylenol with with Codeine #3] Codeine # 3) Zofran No Notes: Memoria 06-24 (Same as: l 22:44: Zofran) Ty MEDICATION WASTE Product Size: 4 mg Product Wasted: ___ mg Xopenex No 1.25 mg, Memori a 06-24 Route: l 22:44: NEB, PRN, Ty 00 Dosing Weight 102.926, kg, PRN Respirator y Protocol, Start date: 06/24/16 17:44:00 CDT, Duration: 30 day, Stop date: 07/24/16 17:43:00 CDT Morphine No Notes: Memoria 06-24 (Same l 22:44: as:MORPhin Ty e Sulfate) Albuterol No Notes: Memori a 0.833 MG/ML 06-24 (Same as: l / 22:44: Duoneb) Ty Ipratropium 00 [place] 0.167 MG/ML Inhalant Solution Glucagon No 1 mg, Memoria 06-24 Route: IM, l 22:44: Drug form: Ty PDR/INJ, PRN, Dosing Weight 103.653, kg, PRN Blood Glucose Results, Start date: 06/24/16 17:44:00 CDT, Duration: 30 day, Stop date: 07/24/16 17:43:00 CDT Nitroglycer No Notes: Danilo jerry in 06-24 (Same l 22:44: as:Nitroqu ick, Nitrostat) "Do Not Crush" Sublingual tablet Docusate No Notes: Memoria 06-24 (Same as: l 22:44: Colace) (Do Not Crush) Ondansetron No Notes: Danilo jerry 06-24 (Same as: l 22:44: Zofran) MEDICATION WASTE Product Size: 4 mg Product Wasted: ___ mg Dextrose No 25 gm, 50 Danilo jerry 50% Syringe 06-24 mL, Route: l 22:44: IVP, Drug Form: INJ, Dosing Weight 103.653, kg, PRN, PRN Blood Glucose Results, Start date: 06/24/16 17:44:00 CDT, Duration: 30 day, Stop date: 07/24/16 17:43:00 CDT Acetaminoph No Notes: Do M emoria en 06-24 not exceed l 22:44: 4 gm/day. [place] 00 (Same as: Tylenol) vasopressin No Route: IV, Memoria (ANES) 06-24 Drug form: l 22:40: INJ, ONCE, Stop date: 06/24/16 17:40:00 CDT ondansetron No Route: IV, Memoria (ANES) 06-24 Drug form: l 22:23: INJ, ONCE, Stop date: 06/24/16 17:23:00 CDT protamine No Route: IV, Me moria (ANES) 06-24 Drug form: l 22:03: INJ, ONCE, Stop date: 06/24/16 17:03:00 CDT calcium No Route: IV, Danilo jerry chloride 06-24 Drug form: l (ANES) 21:48: INJ, ONCE, Stop date: 06/24/16 16:48:00 CDT nitroglycer No Route: IV, Memoria in (ANES) 06-24 Drug form: l 20:17: INJ, ONCE, Stop date: 06/24/16 15:17:00 CDT heparin No Route: IV, Danilo jerry (ANES) 06-24 Drug form: l 20:07: INJ, ONCE, Stop date: 06/24/16 15:07:00 CDT fentaNYL No Route: IV, Mem oria (ANES) 06-24 Drug form: l 19:31: INJ, ONCE, Stop date: 06/24/16 14:31:00 CDT ePHEDrine No Route: IV, Me moria (ANES) 06-24 Drug form: l 19:11: INJ, ONCE, Stop date: 06/24/16 14:11:00 CDT cefuroxime No Route: IV, M emoria (ANES) 06-24 Drug form: l 19:11: INJ, ONCE, Stop date: 06/24/16 14:11:00 CDT rocuronium No Route: IV, M emoria (ANES) 06-24 Drug form: l 19:06: INJ, ONCE, Stop date: 06/24/16 14:06:00 CDT propofol No Route: IV, Mem oria (ANES) 06-24 Drug form: l 19:06: INJ, ONCE, Stop date: 06/24/16 14:06:00 CDT Amicar No Route: IV, Memor ia (ANES) 06-24 Drug form: l (ANES) + 18:35: INJ, Dosing Weight 103.7, kg, Start date: 06/24/16 13:35:00 CDT, Stop date: 06/24/16 14:35:00 CDT vancomycin No Route: IV, M emoria (ANES) 06-24 Drug form: l (ANES) 18:29: INJ, Start Soumya date: 06/24/16 13:29:00 CDT, Stop date: 06/24/16 14:29:00 CDT midazolam No Route: IV, Me moria (ANES) 06-24 Drug form: l 18:11: SOLN, Ty 00 ONCE, Stop date: 06/24/16 13:11:00 CDT morphine No Route: IV, Mem oria Sulfate 06-24 Drug form: l (ANES) 18:11: INJ, ONCE, Soumya nn 00 Stop date: 06/24/16 13:11:00 CDT Isolyte S No Route: IV, Me moria (PH 7.4) 06-24 Total l 1000 mL 17:39: Volume: Ty (ANES) 00 1,000, Start date: 06/24/16 12:39:00 CDT, Stop date: 06/24/16 13:39:00 CDT sodium 2016- No 1,000 mL, Memori a chloride 06-22 Rate: 125 l 0.9% 1000 12:35: ml/hr, Rafat n ml INJ 00 Infuse 1,000 mL over: 8 hr, Route: IV, Dosing Weight 99.563 kg, Total Volume: 1,000, Start date: 06/22/16 7:35:00 CDT, Duration: 30 day, Stop date: 07/22/16 7:34:00 CDT Sodium 2016-0 No 250 mL, Memoria Chloride 3- 250 ml/hr, l 0.154 12:34: Infuse [place] MEQ/ML 00 Over: 1 Injectable hr, Route: Solution IV, 250, Drug form: INJ, ONCE, Priority: STAT, Dosing Weight 99.563 kg, Start date: 06/22/16 7:34:00 CDT, Duration: 1 doses or times, Stop date: 06/22/16 7:34:00 CDT sodium 2016-0 No 1,000 mL, Memori a chloride 06-22 Rate: 125 l 0.9% 1000 12:19: ml/hr, Rafat n ml INJ 00 Infuse 1,000 mL over: 8 hr, Route: IV, Dosing Weight 99.563 kg, Total Volume: 1,000, Start date: 06/22/16 7:19:00 CDT, Duration: 30 day, Stop date: 07/22/16 7:18:00 CDT Lopressor No Notes: Memori a 3-26 (Same as: l 23:00: Lopressor) Ty 00 Lopressor No Notes: Memori a 3-26 (Same as: l 22:00: Lopressor) Ty 00 Levemir No Notes: Memoria 3-25 Same as l 02:00: Levemir Do Ty 00 not hold insulin without contacting prescriber WASTE: F/P - Black; E - Municipal Trash Bin "single patient use only" Saline No Notes: Memoria Flush 0.9% 3-25 (Same as: l 02:00: BD Ty Posiflush) chlorhexidi No Notes: Danilo jerry ne 3-25 (Same As: l gluconate 01:00: Peridex) Herm jigna 1.2 MG/ML 00 Mouthwash Cefazolin No Notes: Memori a 3-25 Same as: l 00:00: Ancef [place] 00 Mupirocin No 1 appl, Memor ia 0.02 MG/MG 06-18 Route: l Topical 00:00: NASAL, [place] Ointment 00 ONCALL, Drug form: OINT, Start date: 06/17/16 19:00:00 CDT, Duration: 30 day, Stop date: 07/17/16 18:59:00 CDT sodium No 250 mL, Memoria chloride -24 Rate: On l 0.9% INJ 23:54: call for Souyma nn 250 mL 00 use with blood product administra tion, Dosing Weight 102.926, kg, Route: IV, Total Volume: 250, Start Date: 06/17/16 18:54:00 CDT, Duration: 30 day, Stop date: 07/17/16 18:53:00 CDT, Replace Every: 24 hr Saline No Notes: Memoria Flush 0.9% 3-24 (Same as: l 23:54: BD Ty Posiflush) metoprolol No 12.5 mg, Mem oria tartrate 3-24 Route: PO, l 23:54: Drug form: Ty 00 TAB, Q12H, Dosing Weight 102.926, kg, Priority: NOW, Start date: 06/17/16 18:54:00 CDT, Duration: 30 day, Stop date: 07/17/16 9:00:00 CDT Nitroglycer No Notes: 1 Me moria in 0.02 3-24 gram is l MG/MG 17:00: approximat Rafat n Topical 00 zara 1 inch Ointment of nitroglyce rin ointment (20 mg NTG per gram) (Same as:Nitro-B id) Enoxaparin No Notes: Memor ia 3-24 Nurse to l 14:00: ensure [place] documentat ion of patient education per [facility] ation policy. (Same as: Lovenox) Albuterol No Notes: Memori a 0.833 MG/ML 06-17 (Same as: l / 01:00: Duoneb) [place] Ipratropium 00 [place] 0.167 MG/ML Inhalant Solution [DuoNeb] Budesonide No Notes: Memor ia 0.25 MG/ML 06-16 (Same As: l Inhalant 23:32: Pulmicort) Her cazares Solution 00 [Pulmicort] Solu-Medrol No Notes: Danilo jerry 06-16 (Same l 23:12: as:Solu-ME [place] 00 DROL, A-Methapre d) Lovenox No Notes: Memoria 3-23 Nurse to l 23:00: ensure Ty 00 documentat ion of patient education per [facility] ation policy. (Same as: Lovenox) Sodium No 250 mL, Memoria Chloride 323 250 ml/hr, l 0.154 22:00: Infuse Ty MEQ/ML 00 Over: 1 Injectable hr, Route: Solution IV, 250, Drug form: INJ, ONCALL, Priority: Routine, Dosing Weight 102.926 kg, Start date: 06/16/16 17:00:00 CDT, Duration: 1 doses or times Sodium No 750 mL, Memoria Chloride 323 Rate: 75 l 0.154 21:15: ml/hr, [place] MEQ/ML 00 Infuse Injectable over: 10 Solution hr, Route: IV, Dosing Weight 102.926 kg, Total Volume: 750, Start date: 06/16/16 16:15:00 CDT, Stop date: 06/17/16 16:14:00 CDT acetaminoph No Notes: Do M emoria en-codeine 3-23 not exceed l #3 21:11: 4gm/day of [place] 00 acetaminop hen. (Same as: Tylenol with Codeine # 3) Acetaminoph No Notes: Do M emoria en 3-23 not exceed l 21:11: 4 gm/day. Ty (Same as: Tylenol) Sodium No 500 mL, Memoria Chloride 3-23 Rate: 150 l 0.154 21:11: ml/hr, Ty MEQ/ML 00 Infuse Injectable over: 3.3 Solution hr, Route: IV, Dosing Weight 102.926 kg, Total Volume: 500, Start date: 06/16/16 16:11:00 CDT, Stop date: 06/16/16 20:10:00 CDT Sodium No 250 mL, Memoria Chloride 3-23 Route: l 0.9% IV 20:49: IVPB, [place] 00 Start date: 06/16/16 15:49:00 CDT, Duration: 30 day, Stop date: 07/16/16 15:48:00 CDT, PRN Line Flush Dextrose No 25 gm, 50 Danilo jerry 50% Syringe 3-23 mL, Route: l 20:45: IVP, Drug Form: INJ, Dosing Weight 102.926, kg, PRN, PRN Blood Glucose Results, Start date: 06/16/16 15:45:00 CDT, Duration: 30 day, Stop date: 07/16/16 15:44:00 CDT Insulin, No Notes: Memoria Aspart, 3-23 Roll in l Human 20:45: palms of hands gently; Do not shake vigorously . (Same as: NovoLOG) "single patient use only" WASTE: F/P - Black; E - Municipal Trash Bin Stable for 28 days at room temperatur e. Expires in days from ____Date Glucagon No 1 mg, Memoria 3-23 Route: IM, l 20:45: Drug form: [place] 00 PDR/INJ, PRN, Dosing Weight 102.926, kg, PRN Blood Glucose Results, Start date: 06/16/16 15:45:00 CDT, Duration: 30 day, Stop date: 07/16/16 15:44:00 CDT Sodium 2016- No 1,000 mL, Memori a Chloride 3-23 Rate: 100 l 0.154 14:19: ml/hr, Ty MEQ/ML 00 Infuse Injectable over: 10 Solution hr, Route: IV, Dosing Weight 102.926 kg, Total Volume: 1,000, Start date: 06/16/16 9:19:00 CDT, Duration: 30 day, Stop date: 07/16/16 9:18:00 CDT aspirin 81 No Notes: Do Me moria mg tablet, 06-16 not crush l enteric 14:00: or chew. Rafat n coated 00 (Same As: Ecotrin) Nitroglycer No Notes: 1 Me moria in 0.02 06-16 gram is l MG/MG 11:00: approximat Rafat n Topical 00 zara 1 inch Ointment of nitroglyce rin ointment (20 mg NTG per gram) (Same as:Nitro-B id) metoprolol No Notes: Memor ia tartrate -23 (Same as: l 05:00: Lopressor) Sodium 2016- No 250 mL, Memoria Chloride 3-23 250 ml/hr, l 0.154 03:00: Infuse [place] MEQ/ML 00 Over: 1 Injectable hr, Route: Solution IV, 250, Drug form: INJ, ONCALL, Priority: Routine, Dosing Weight 102.926 kg, Start date: 06/15/16 22:00:00 CDT, Duration: 1 doses or times Sodium 2016- No 750 mL, Memoria Chloride 3-23 Rate: 75 l 0.154 02:02: ml/hr, [place] MEQ/ML 00 Infuse Injectable over: 10 Solution hr, Route: IV, Dosing Weight 102.926 kg, Total Volume: 750, Start date: 06/15/16 21:02:00 CDT, Duration: 24 hr, Stop date: 06/16/16 21:01:00 CDT Saline No Notes: Memoria Flush 0.9% 3-23 (Same as: l 02:00: BD Posiflush) atorvastati No Notes: Danilo jerry n 06-16 (Same as: l 02:00: Lipitor) [place] 00 metoprolol No 25 mg, Memor ia tartrate 06-16 Route: PO, l 02:00: Drug form: TAB, Q12H, Dosing Weight 102.926, kg, Start date: 06/15/16 21:00:00 CDT, Duration: 30 day, Stop date: 07/15/16 9:00:00 CDT Enoxaparin No Notes: Memor ia 06-16 Nurse to l 00:00: ensure [place] 00 documentat ion of patient education per anticoagul ation policy. (Same as: Lovenox) Albuterol No Notes: Memori a 0.833 MG/ML 06-15 (Same as: l / 18:56: Duoneb) Ipratropium 00 [place] 0.167 MG/ML Inhalant Solution [DuoNeb] Saline No Notes: Memoria Flush 0.9% 06-15 (Same as: l 18:52: BD Posiflush) Labetalol No Notes: Memori a - (Same as: l 18:52: Normodyne, [place] 00 Trandate) Push over 2 minutes Give bolus over 2-3 minutes. Trazodone No Notes: Memori a Hydrochlori 06-15 (Same As: l de 50 MG 18:52: Desyrel) Soumya nn Oral Tablet 00 Miralax No Notes: Memoria - Dissolve l 18:52: in 8 oz of water or juice. (Same as: Miralax) Nitroglycer No Notes: Danilo jerry in 06-15 (Same l 18:52: as:Nitroqu ick, Nitrostat) "Do Not Crush" Sublingual tablet Morphine No Notes: Memoria - (Same l 18:52: as:MORPhin e Sulfate) Ondansetron No Notes: Danilo jerry - (Same as: l 18:52: Zofran) [place] 00 Vital Signs Vital Name Observation Time Observation Value Comments Source Respitory Rate 2016-06-30 20:27:00 Memori al [place] Systolic (mm Hg) 2016-06-30 20:27:00 Danilo rial [place] Diastolic (mm Hg) 2016-06-30 20:27:00 Mem orial Ty Heart Rate 2016-06-30 20:27:00 [facility] [place] Respitory Rate 2016-06-30 17:09:00 [facility] [place] Systolic (mm Hg) 2016-06-30 17:09:00 Danilo rial [place] Diastolic (mm Hg) 2016-06-30 17:09:00 [facility] [place] Heart Rate 2016-06-30 17:09:00 [facility] Systolic (mm Hg) 2016-06-30 13:00:00 Danilo rial [place] Diastolic (mm Hg) 2016-06-30 13:00:00 [facility] [place] Heart Rate 2016-06-30 13:00:00 [facility] Respitory Rate 2016-06-30 13:00:00 [facility] [place] Weight 2016-06-29 10:00:00 [facility] Weight 2016-06-28 10:23:00 [facility] [place] Height 2016-06-25 05:04:00 177.8 cm [facility] Height 2016-06-25 03:47:00 177.8 cm [facility] [place] Height 2016-06-24 22:55:00 177.8 cm [facility] Temperature Oral (F) 2016-06-24 14:55:00 97.6 F [facility] Weight 2016-06-24 10:00:00 [facility] Temperature Oral (F) 2016-06-20 13:00:00 97.9 F [facility] BMI Calculated 2016-06-15 16:47:00 [facility] Procedures Procedure Date / Time Performed Performing Clinician [facility] e Repair of knee collateral 1973-03[birth year]27 00:00:00 Me morial Ty ligaments Encounters Start End Encounter Admission Attending Care Care Encounter Source Date/Time Date/Time Type Type Clinicians Facility Department ID 2020-06-19 2020-06-19 Outpatient [facility] [id number] [facility] 2020-05-082020-05-08 Outpatient [facility] [id number] [facility] 2020-05-01 2020-05-01 Outpatient [facility] [id number] [facility] 2020-04-29 2020-04-29 Outpatient [facility] [id number] [facility] 2020-04-15 2020-04-15 [facility] [id number] [facility] 2020-03-02 2020-03-02 Out[facility] [id number] [facility] 2020-02-13 2020-02-13 [facility] [id number] [facility] 2020-01-29 2020-01-29 Laboratory Only, Adc [facility] [id number] 10:22:41 10:37:41 Only Test [place] [id number] [place] [id number] [place] [id number] 2020-01-21 2020-01-21 Outpatient [facility] [id number] [facility] 2020-01-21 2020-01-21 [facility] [id number] [facility] 2020-01-10 2020-01-10 Telephone Aguilera, [facility] [id number] 00:00:00 00:00:00 Praveenageremias Harris [id number] [place] [id number] [facility] [id number] [address] 2018-01-16 2018-01-17 Outpatient [facility] [id number] 13:43:00 23:59:59 00 2016-06-15 2016-06-30 Outpatient Eugenia Benedict [facility] [id number] 13:52:00 19:05:00 Amberlyfred 81 Results Test Description Test Time Test Comments Results Result Sourc e Comments CHEM PANEL 2016-06-30 69 [facility] 09:31:00 [facility] CHEM PANEL 2016-06-30 104 [facility] 09:31:00 [facility] CHEM PANEL 2016-06-30 4.0 [facility] 09:31:00 [facility] CHEM PANEL 2016-06-30 140 [facility] 09:31:00 [facility] CHEM PANEL 2016-06-30 1.10 [facility] 09:31:00 [place] CHEM PANEL 2016-06-30 21 [facility] 09:31:00 Ty CHEM PANEL 2016-06-30 13.0 [facility] 09:31:00 [place] CHEM PANEL 2016-06-30 27 [facility] 09:31:00 [facility] CHEM PANEL 2016-06-30 8.2 [facility] 09:31:00 [place] CHEM PANEL 2016-06-30 104 [facility] 09:31:00 [place] CHEM PANEL 2016-06-29 2.6 [facility] 10:06:00 [place] ELECTROLYTES 2016-06-29 15.4 [facility] 10:06:00 [place] ELECTROLYTES 2016-06-29 69 [facility] 10:06:00 [place] ELECTROLYTES 2016-06-29 110 [facility] 10:06:00 [place] ELECTROLYTES 2016-06-29 26 [facility] 10:06:00 [place] ELECTROLYTES 2016-06-29 105 [facility] 10:06:00 [place] ELECTROLYTES 2016-06-29 1.10 [facility] 10:06:00 [place] ELECTROLYTES 2016-06-29 137 [facility] 10:06:00 [place] ELECTROLYTES 2016-06-29 4.4 [facility] 10:06:00 [place] ELECTROLYTES 2016-06-29 21 [facility] 10:06:00 [place] ELECTROLYTES 2016-06-29 8.1 [facility] 10:06:00 [place] HEMATOLOGY 2016-06-29 0.3 [facility] 10:06:00 [place] HEMATOLOGY 2016-06-29 9.5 [facility] 10:06:00 [place] HEMATOLOGY 2016-06-29 1.2 [facility] 10:06:00 [place] HEMATOLOGY 2016-06-29 1.4 [facility] 10:06:00 [place] HEMATOLOGY 2016-06-29 0.0 [facility] 10:06:00 [place] HEMATOLOGY 2016-06-29 0.2 [facility] 10:06:00 [place] HEMATOLOGY 2016-06-29 Moderate [facility] 10:06:00 *ABN*(06/29/16 [place] 5:06 AM) HEMATOLOGY 2016-06-29 Normal (06/29/16 [facility] 10:06:00 5:06 AM) [place] HEMATOLOGY 2016-06-29 9.7 [facility] 10:06:00 [place] HEMATOLOGY 2016-06-29 77.0 [facility] 10:06:00 [place] HEMATOLOGY 2016-06-29 1.6 [facility] 10:06:00 [place] HEMATOLOGY 2016-06-29 11.4 [facility] 10:06:00 [place] HEMATOLOGY 2016-06-29 10:06:00 Test Item Value Reference Range Interpretation Comme nts MCH (test code = MCH) 28.6 pg 27.0-31.0 [facility] ZvldinzFBBVKNCSYX9810-29-13 10:06:42623Krgqpkti HermannHEMATOLOGY 2016-06-29 10:06:0014.2[facility] PmddconUAABNKCKWI2788-33-18 10:06:0033.9[facility] YueeuwtTJBQHCKLAB0412-12-84 10:06:008.3[facility] XlnvevuEULUHEJERQ0767-01-86 10:06:003.11[facility] ZannrusRMSEFTLJNH9892-90-44 10:06:0012.3[facility] Ty MXYIOWOEXZ7890-03-14 10:06:0084.3[facility] IgrygcgDXCOMBAOFO8282-75-91 10:06:00 26.2[facility] OlriyvyCLIHEYGVBP5018-69-33 10:06:008.9[facility] HermannCHEM PANEL 2016-06-28 10:42:0056[facility] HermannCHEM YDQFV2812-31-68 10:42:008.3[facility] HermannCHEM SMFGW7658-18-94 10:42:004.5[facility] HermannCHEM UKMRM4868-23-15 10:42:0024[facility] HermannCHEM NCNOI0981-40-95 10:42:89182Xztcvzny HermannCHEM YAXKL5964-48-50 10:42:15412Jyilqzhf HermannCHEM MMWXA3901-00-43 10:42:0029 [facility] HermannCHEM SVIFO6760-09-46 10:42:74573Eddtkujh HermannCHEM PANEL 2016-06-28 10:42:001.30[facility] HermannCHEM MJVFK6698-30-73 10:42:0012.5[facility] HermannCHEM UINFQ8735-84-19 10:42:002.7[facility] PweinhiXYLCPLLLWL9815-64-26 10:42:009.0[facility] PbswzwaFMTEOYZTWJ6743-22-83 10:42:0027.7[facility] Ty KTZKBRUVKQ2022-35-17 10:42:0087.2[facility] UgteolrQTOPJSQYXF3360-79-69 10:42:00 Test Item Value Reference Range Interpretation Comments MCH (test code = MCH) 28.5 pg 27.0-31.0 [facility] OzlnyuxUHEEQTNAVG8748-90-78 10:42:0032.6[facility] HermannHEMATOLOGY 2016-06-28 10:42:0011.9[facility] ZfcmjroKGFNTJTRYZ4879-34-84 10:42:003.17[facility] CauyvgzZLUJNKLDXZ0968-16-82 10:42:0014.6[facility] GpbtiwiGOAPQQVPUH7634-29-00 10:42:03079Wcurrkkw RddyynnJUFAMAPFGX2675-64-50 10:42:008.6[facility] [place] DDMHENFWJX2054-99-08 10:42:001.5[facility] FoihkmbVOQAQXDDJR9257-16-39 10:42:001.4 [facility] LdwyadhAPXPWLTHKS8513-09-72 10:42:000.1[facility] HermannHEMATOLOGY 2016-06-28 10:42:0012.3[facility] WfcrvryIYDGWSIMAL6882-18-51 10:42:0011.6[facility] SkfzoppHTFCIYCZQS9834-35-01 10:42:001.1[facility] KoswgpsIHLFJLFJFM5842-61-21 10:42:000.3[facility] OogrdemFKDGPDOMOX8466-83-61 10:42:008.9[facility] [place] ZJXZQRNRMK5741-21-07 10:42:0074.7[facility] HermannCHEM GUCYS9083-07-02 09:50:00 2.4[facility] EwmjsbwXCFBGFSVXQ1619-60-04 09:50:0018.6[facility] HermannHEMATOLOGY 2016-06-27 09:50:0014.7[facility] YbrxrllSVFHNGVACV8267-05-08 09:50:0033.1[facility] AkbdpagSQHKCXGCYF8470-45-81 09:50:0029.5[facility] FzboyfcNDOGMNIXGO7438-43-89 09:50:00 Test Item Value Reference Range Interpretation Comments MCH (test code = MCH) 28.1 pg 27.0-31.0 [facility] NxwzgrqJSQSBGTXWE1749-57-43 09:50:0084.7[facility] HermannHEMATOLOGY 2016-06-27 09:50:009.7[facility] QzonpdnXTUSRMODJM6743-61-42 09:50:02873Xuvfhkqr MgjdqdzHMEUSTOJLY6190-44-04 09:50:009.8[facility] DhnilnoRXGRJBRLOJ3563-40-34 09:50:003.48[facility] NgkehhnSMDRIXOXVF8101-16-55 09:50:002.0[facility] [place] YIJKGLGJSM5597-59-17 09:50:0076.1[facility] HaoqampCOHOKAQCEX8199-47-30 09:50:00 0.1[facility] MjtoyazSUUFDXHEQZ3300-44-46 09:50:0012.7[facility] HermannHEMATOLOGY 2016-06-27 09:50:0014.2[facility] FmqvgttXBUVTOMXOF2601-70-87 09:50:000.5[facility] TvusgoaZBDBGPVUXZ6089-12-66 09:50:0010.6[facility] ZikvoaxIBXHTAVEWU5556-13-06 09:50:000.1[facility] YshihhqCOVTJBWFJV6842-80-06 09:50:002.4[facility] HermannCHEM RYKJD7070-43-70 08:42:002.0[facility] IncvueeSHNBKEVMGI6838-71-48 08:42:000.0 [facility] VpknghiDKXEWYWUKN7006-44-26 08:42:000.0[facility] HermannPARATHYROID HVWWFUA0076-14-84 08:42:001.11[facility] HermannPARATHYROID ZJCKQWB4504-37-07 08:42:001.11[facility] HermannSPECIAL RZCMUUYAD9419-74-90 08:42:006.4[facility] HermannCHEM SKSPP4433-21-58 07:28:001.6[facility] HiutzhyQTVEEZNUGI6038-06-72 07:28:00Normal (06/25/16 2:28 AM)[facility] HaayubqYAGHBYKICP6247-89-92 07:28:00 Normal (06/25/16 2:28 AM)[facility] HermannPARATHYROID QTJTXDK2618-85-06 07:28:00 1.06[facility] HermannPARATHYROID PSSXZRP5057-42-69 07:28:001.09[facility] Ty MRNQQJIJZE4187-48-43 23:42:0034.0[facility] HkuuimkANUSYTZUEQ1541-99-29 23:42:00 11.6[facility] WetfhsxSDATAWTZWE3408-68-12 23:42:001.09[facility] HermannHEMATOLOGY 2016-06-24 23:42:004.4[facility] ZrutkvpRFMDXNOEDS9824-97-43 23:42:74446Ybirpxhf HermannCHEM MNOBZ3460-25-35 23:11:001.4[facility] HermannCHEM FHYOW8060-07-48 23:11:002.1[facility] HermannCHEM EKBGO2542-76-73 23:11:000.4[facility] HermannCHEM PQCHV7880-11-72 23:11:000.2[facility] HermannCHEM WOLVK4580-19-38 23:11:000.6 [facility] HermannCHEM JITUH0161-77-27 23:11:0038[facility] HermannCHEM PANEL 2016-06-24 23:11:0042[facility] HermannCHEM OFOZF0649-63-79 23:11:0051[facility] HermannCHEM TEVVN4463-15-35 23:11:002.9[facility] HermannCHEM NCGOS6217-77-74 23:11:005.0[facility] HermannCHEM AOWUK5908-45-16 23:11:002.3[facility] [place] LSEHVSPJKP3599-93-31 23:11:18894Wizcnjzy RuvrutxPOZLNQWCAX6460-21-56 23:11:00 Test Item Value Reference Range Interpretation Comments PTT (test code = PTT) 34.9 s 22.9-35.8 [facility]cwwziaRWVOHIBSOW8817-77-17 23:11:001.27[facility] HermannHEMATOLOGY 2016-06-24 23:11:00 Test Item Value Reference Range Interpretation Comments PT (test code = PT) 16.2 s 12.0-14.7 [facility] HermannPARATHYROID VWYQUHH9846-21-20 23:11:001.09[facility] [place] PARATHYROID IKVAXQE0971-00-34 23:11:001.10[facility] HozllunAUHQDXMLQA4463-07-09 22:13:58866Eydculfz BkukowwFBXUVBCYGB8889-64-05 22:13:00 Test Item Value Reference Range Interpretation Comments PTT (test code = PTT) 32.8 s 22.9-35.8 [facility] CenterTzfkjlxNZMTAIZBSE5863-95-82 22:13:00 Test Item Value Reference Range Interpretation Comments PT (test code = PT) 16.6 s 12.0-14.7 [facility] CenterXmjlpfwXGKQKPDEAW5413-22-92 22:13:001.32[facility]BLO[facility] BANK SHLZADO1750-89-75 09:15:00Negative (06/24/16 4:15 AM)[facility] HermannBLOOD BANK PJXZGWJ9497-16-48 09:00:00Product available (06/24/16 4:00 AM)[facility] OGMBSRR4392-60-97 09:00:00Product available (06/24/16 4:00 AM)[facility] HermannBLOOD BANK HJAXOLU5153-58-57 09:00:00Product available (06/24/16 4:00 AM) [facility] HermannBLOOD BANK MQAXVZO7945-45-50 09:00:00Product available (06/24/16 4:00 AM)[facility] CenterYafnqkyGQNSUTVZFE5910-63-81 10:18:001.05[facility] ZEOVHAFYCY5448-95-09 10:18:00 Test Item Value Reference Range Interpretation Comments PTT (test code = PTT) 37.0 s 22.9-35.8 [facility] LgmpmncUQPXUUBUJX4409-83-35 10:18:00 Test Item Value Reference Range Interpretation Comments PT (test code = PT) 13.9 s 12.0-14.7 [facility] HermannBLOOD BANK EUMNMIB2956-29-43 10:18:00Negative (06/20/16 5:18 AM) [facility] JttiylwDEYAJJMLUS2307-01-11 10:18:00Normal (06/20/16 5:18 AM)[facility] LqrrnhmHPQADOZNAP8798-17-67 10:18:00Normal (06/20/16 5:18 AM)[facility] [place] MOLECULAR VQJBMZCZEN8368-98-60 10:18:006.9[facility] HermannMOLECULAR DIAGNOSTIC 2016-06-20 10:18:682382254Zmfczxci HermannBLOOD BANK QOYCYIK8765-23-63 10:00:00 Product available (06/20/16 5:00 AM)[facility] HermannBLOOD BANK HFYCOZJ5008-99-69 10:00:00Product available (06/20/16 5:00 AM)[facility] HermannBLOOD BANK RESULTS 2016-06-20 10:00:00Product available (06/20/16 5:00 AM)[facility] HermannBLOOD BANK CPHOVXH9886-56-48 10:00:00Product available (06/20/16 5:00 AM)[facility] BACTERIAL - SCPTOIML5789-07-36 10:33:00Negative (06/18/16 5:33 AM)[facility] HermannCHEM XQTWZ9178-20-92 10:33:0018[facility] HermannCHEM CLMAB2088-20-32 10:33:003.9[facility] HermannCHEM NLNEF1471-86-94 10:33:000.8[facility] HermannCHEM FPZYY6163-59-06 10:33:0067[facility] HermannCHEM DWONA8161-17-58 10:33:0074 [facility] HermannCHEM SNCWA5624-20-59 10:33:007.1[facility] HermannCHEM PANEL 2016-06-18 10:33:003.2[facility] HermannCHEM EUNTK4445-44-12 10:33:0058[facility] HermannCHEM GVQRJ9261-45-09 10:33:000.4[facility] JfxsluaVSHLXZ2935-32-94 10:33:00 4.04[facility] RetsmheBPYICQ2058-90-96 10:33:0016[facility] FvdsfijBYVEKW7553-13-05 10:33:22101Juzebakx IqoeapiYRRYBV9761-27-84 10:33:0045[facility] HermannLIPIDS 2016-06-18 10:33:0082[facility] QxksditLVZJPL6118-74-42 10:33:01492Xkaeeopb HermannSPECIAL ZSDAPIDVE0278-91-94 10:33:006.4[facility] HermannURINE AND STOOL 2016-06-18 10:33:00<=1.0[facility] HermannURINE AND MXWJC3722-02-23 10:33:00 <1[facility] HermannURINE AND MYRMM8696-08-85 10:33:00Negative *NA*(06/18/16 5:33 AM)[facility] HermannURINE AND MRBBD7404-82-13 10:33:00<1[facility] [place] URINE AND GWAYA9972-99-58 10:33:00Negative (06/18/16 5:33 AM)[facility] [place] URINE AND QWJXL9721-03-50 10:33:00Negative (06/18/16 5:33 AM)[facility] [place] URINE AND FBYXU0864-58-48 10:33:00Negative (06/18/16 5:33 AM)[facility] [place] URINE AND VSNFD0887-87-93 10:33:00Light Yellow *NA*(06/18/16 5:33 AM)[facility] HermannURINE AND PKUBB9117-84-73 10:33:00Clear (06/18/16 5:33 AM)[facility] URINE AND PXUBI5338-91-83 10:33:005.0[facility] HermannURINE AND IXFGQ9695-19-05 10:33:001.008[facility] HermannURINE AND LSDFD8412-02-19 04:28:00Clear (06/17/16 11:28 PM)[facility] HermannURINE AND DDYFS8235-07-98 04:28:006.0[facility] [place] URINE AND RUSZF6779-16-67 04:28:00Light Yellow *NA*(06/17/16 11:28 PM)[facility]annURINE AND YEHRG8371-96-10 04:28:001.010[facility] HermannURINE AND STOOL 2016-06-18 04:28:001[facility]annURINE AND MEPAF9341-83-88 04:28:00<=1.0 [facility]annURINE AND XLGCU3875-57-20 04:28:00Negative (06/17/16 11:28 PM) [facility]annUR[facility] AND PIJIS2107-01-01 04:28:00Negative (06/17/16 11:28 PM) [facility]annURINE AND MCKMH5211-07-52 04:28:00Negative (06/17/16 11:28 PM) [facility]annURINE AND CJWOH5409-10-76 04:28:00Negative *NA*(06/17/16 11:28 PM)[facility] BlzukuqMKFSQS4597-34-19 09:20:004.26[facility] GyqdmyrCWJHXA1986-30-61 09:20:0022[facility] UyipfxxGGLQCN0374-55-45 09:20:76481Msyguzzt HermannLIPIDS 2016-06-16 09:20:0043[facility] GzfxcohSLRBLR3910-68-13 09:20:32536Kytvlwnn CnikwcdBSBWPE1310-07-76 09:20:26837Rusvgqxe HermannCARDIAC BIBBCQP1910-96-44 00:19:84733Rbsxgffj HermannCARDIAC VVHRGYT6362-62-18 00:19:007.44[facility] HermannCARDIAC OGUIZCL2386-99-32 00:19:004.4[facility] HermannCARDIAC ENZYMES 2016-06-16 00:19:0017.0[facility] HermannCARDIAC LVEFLVZ6215-26-43 19:58:004.8 [facility] HermannCARDIAC LCSQQCZ7399-10-44 19:58:55424Dljmbuzw HermannCARDIAC DDTOYBJ7970-95-56 19:58:0019.8[facility] HermannCARDIAC ANPFNSC4605-90-53 19:56:00 6.52[facility] HermannCHEM GVWPY1962-77-06 19:56:003.7[facility] HermannCHEM PANEL 2016-06-15 19:56:000.9[facility] HermannCHEM TOHTT4037-81-62 19:56:0019[facility] HermannCHEM DKOXV4068-88-23 19:56:000.5[facility] HermannCHEM PPNBI9306-98-40 19:56:003.3[facility] HermannCHEM XMDAX4015-27-60 19:56:007.0[facility] HermannCHEM TVECA8715-84-49 19:56:0068[facility] HermannCHEM VLGPS4944-73-75 19:56:0051 [facility] HermannCHEM MKDCY5866-31-95 19:56:0044[facility] HermannDRUG SCREEN 2016-06-15 19:56:00Negative *NA*(06/15/16 2:56 PM)[facility] HermannDRUG SCREEN 2016-06-15 19:56:00Negative *NA*(06/15/16 2:56 PM)[facility] HermannDRUG SCREEN 2016-06-15 19:56:00Negative *NA*(06/15/16 2:56 PM)[facility] HermannDRUG SCREEN 2016-06-15 19:56:00Negative *NA*(06/15/16 2:56 PM)[facility] HermannDRUG SCREEN 2016-06-15 19:56:00Negative *NA*(06/15/16 2:56 PM)[facility] HermannDRUG SCREEN 2016-06-15 19:56:00Negative *NA*(06/15/16 2:56 PM)[facility] HermannDRUG SCREEN 2016-06-15 19:56:00Negative *NA*(06/15/16 2:56 PM)[facility] HermannDRUG SCREEN 2016-06-15 19:56:00See Note (06/15/16 2:56 PM)[facility] HermannIMMUNOLOGY 2016-06-15 19:56:00Negative *NA*(06/15/16 2:56 PM)[facility] HermannIMMUNOLOGY 2016-06-15 19:56:00Negative *NA*(06/15/16 2:56 PM)[facility] HermannIMMUNOLOGY 2016-06-15 19:56:00Positive *ABN*(06/15/16 2:56 PM)[facility] HermannIMMUNOLOGY 2016-06-15 19:56:00Negative *NA*(06/15/16 2:56 PM)[facility] HermannSPECIAL IPQREARCX9036-20-37 19:56:006.6[facility] HermannURINE AND POFVU8601-09-17 19:56:00 Test Item Value Reference Range Interpretation Comments UA pH (test code = UA pH) 5.5 1 5.0-8.0 [facility]annURINE AND YYLFH5219-90-70 19:56:00 Test Item Value Reference Range Interpretation Comments UA Spec Grav (test code = UA Spec 1.020 1 Grav) [facility]annURINE AND QLOPP9574-79-77 19:56:00Negative (06/15/16 2:56 PM) [facility]annURINE AND FZCHO0877-51-86 19:56:00Clear (06/15/16 2:56 PM) [facility]annURINE AND CMQAB0159-63-57 19:56:00Negative (06/15/16 2:56 PM) [facility]annUR[facility] AND KQMDF9138-87-14 19:56:00Not Indicated (06/15/16 2:56 PM)[facility]annURINE AND ISBHK6175-06-83 19:56:00Negative (06/15/16 2:56 PM) [facility]annUR[facility] AND LTYYG4627-42-49 19:56:00Negative *NA*(06/15/16 2:56 PM) [facility]annURINE AND IWMAZ9251-29-37 19:56:00Negative *NA*(06/15/16 2:56 PM) [facility]annURINE AND LJJJD8656-71-10 19:56:00Negative (06/15/16 2:56 PM) [facility]annUR[facility] AND VFRXP9324-82-39 19:56:00Negative (06/15/16 2:56 PM) [facility]annURINE AND XQJQS8623-33-11 19:56:000.2[facility] HermannURINE AND NIPHG2611-50-74 19:56:00Yellow *NA*(06/15/16 2:56 PM)[facility] [place]
[2020-06-29] MEDS ORDERED: METHYLPREDNISOLONE 125 MG INJ ONE (12:40)
[2020-06-29] MEDS ORDERED: LEVALBUTEROL 1.25 MG/3 ML NEB ONE (12:40)
[2020-06-29 13:32] LABS: Albumin 3.7 g/dL (3.4-5.0); Bilirubin Direct 0.1 mg/dL (0-0.2); Bilirubin Total 0.3 mg/dL (0.2-1.0)
[2020-06-29 13:33] LABS: Absolute Lymphocytes (CBC) 1.3 K/uL (0.7-4.9); Basophils % 0.4 % (0-1.3); Hematocrit 38.3 % (39.6-49.0); Lymphocytes % 14.9 % (15.3-44.8); RBC Red Blood Cell Count 4.57 M/uL (4.33-5.43)
[2020-06-29 13:34] LABS: Troponin (Emerg Dept Use Only) 69.5 ng/mL (0.0-0.045)
--- NOTE | 2020-06-29 14:02 | RAD REPORT ---
EXAM DESCRIPTION: RAD - Chest Single View - 06/29/2020 1:49 pm CLINICAL HISTORY: DYSPNEA Chest pain. COMPARISON: Chest Pa And Lat (2 Views) dated 04/14/2020; Chest Pa And Lat (2 Views) dated 11/06/2019; Chest Single View dated 10/04/2019; Chest Single View dated 06/14/2019 FINDINGS: Portable technique limits examination quality. The lungs are grossly clear. The heart is mildly moderately enlarged with changes of a prior CABG not ed. No displaced fractures. IMPRESSION: No acute intrathoracic process suspected.
--- NOTE | 2020-06-29 14:34 | ER ---
Nurse's Notes [facility] Name: Valerio Berg Age: 69 yrs Sex: Male : 1950 Arrival Date: 06/29/2020 Time: 11:25 Bed 16 Private MD: Diagnosis: Acute M. I. Presentation: 06/29 11:43 Chief complaint: Patient states: Cough with CP, SOB off/on for 2-3 months. No fever. ll1 Coronavirus screen: Client denies travel out of the [place] in the last 14 days. congestion, cough unrelated to allergies, difficulty breathing, shortness of breath, Client presents with at least one sign or symptom that may indicate coronavirus-19. Standard/surgical mask placed on the client. Ebola Screen: Patient denies travel to an Ebola-affected area in the 21 days before illness onset. Initial Sepsis Screen: Does the patient meet any 2 criteria? No. Patient's initial sepsis screen is negative. Does the patient have a suspected source of infection? Yes: Productive cough/pneumonia. Risk Assessment: Do you want to hurt yourself or someone else? Patient reports no desire to harm self or others. Onset of symptoms was April 27, 2020. 11:43 Method Of Arrival: Ambulatory ll1 11:43 Acuity: ADRIÁN 3 ll1 Historical: - Allergies: 11:46 Betadine; ll1 11:46 Povidone-Iodine; ll1 - Home Meds: 22:33 aspirin 81 mg Oral TbEC 1 tab twice a day [Active]; Singulair 10 mg Oral tab 1 tab once sf daily [Active]; tramadol 50 mg Oral tab three times a day [Active]; Plavix 75 mg Oral tab 1 tab once daily [Active]; Protonix 40 mg Oral TbEC 1 tab once daily [Active]; levothyroxine 25 mcg tab 1 tab once daily [Active]; ropinirole 1 mg oral tab 1 tab twice a day [Active]; Tradjenta 5 mg oral tab 1 tab once daily [Active]; 22:56 torsemide 20 mg oral tab twice a day [Active]; atorvastatin 40 mg oral tab 1 tab once sf daily [Active]; 06/30 00:01 Senna-S 8.6-50 mg oral tab 2 tabs once daily [Active]; Flomax 0.4 mg Oral cp24 1 cap sf once daily [Active]; potassium chloride 20 mEq Oral TbER 1 tab once daily [Active]; - PMHx: 06/29 11:46 Borderline Diabetes; COPD; Myocardial infarction; ll1 22:33 Hypothyroidism; sf - PSHx: 11:46 CABG; ll1 - Immunization history:: Flu vaccine is up to date. - Social history:: Smoking status: Patient denies any tobacco usage or history of. - Family history:: not pertinent. - Hospitalizations: : No recent hospitalization is reported. Screenin:35 Abuse screen: Denies threats or abuse. Denies injuries from another. Nutritional sv screening: No deficits noted. Tuberculosis screening: No symptoms or risk factors identified. Fall Risk None identified. Assessment: 12:35 General: Appears in no apparent distress. uncomfortable, well developed, Behavior is sv calm, cooperative, appropriate for age. Pain: Complains of pain in chest Pain currently is 5 out of 10 on a pain scale. Quality of pain is described as sharp, Is intermittent, episodic, Aggravated by cough. Neuro: Level of Consciousness is awake, alert, obeys commands, Oriented to person, place, time, situation, Moves all extremities. Full function Gait is steady, with his cane. Speech is normal. Cardiovascular: Patient's skin is warm and dry. Rhythm is atrial fibrillation. Respiratory: Reports shortness of breath on exertion cough that is non-productive, pain with cough Airway is patent Respiratory effort is even, unlabored, Respiratory pattern is regular, symmetrical. Derm: Skin is intact, Skin is pink, warm \\T\\ dry. Musculoskeletal: Range of motion: intact in all extremities. 13:22 Reassessment: Patient appears in no apparent distress at this time. Patient and/or sv family updated on plan of care and expected duration. Pain level reassessed. Patient is alert, oriented x 3, equal unlabored respirations, skin warm/dry/pink. 14:49 Reassessment: Patient appears in no apparent distress at this time. Patient and/or sv family updated on plan of care and expected duration. Pain level reassessed. Patient is alert, oriented x 3, equal unlabored respirations, skin warm/dry/pink. 15:10 Reassessment: Patient appears in no apparent distress at this time. Patient and/or sv family updated on plan of care and expected duration. Pain level reassessed. Patient is alert, oriented x 3, equal unlabored respirations, skin warm/dry/pink. 15:12 Reassessment: Dr Purcell at bedside, stated not to start the Heparin infusion or bolus sv because he will be going to [facility]. 15:36 Reassessment: Miranda MIXON from [facility] here at the bedside. sv 15:59 Reassessment: Patient appears in no apparent distress at this time. No changes from sv previously documented assessment. Patient and/or family updated on plan of care and expected duration. Pain level reassessed. Patient is alert, oriented x 3, equal unlabored respirations, skin warm/dry/pink. 16:30 Reassessment: Patient appears in no apparent distress at this time. Patient and/or sv family updated on plan of care and expected duration. Pain level reassessed. Patient is alert, oriented x 3, equal unlabored respirations, skin warm/dry/pink. 17:15 Reassessment: Patient appears in no apparent distress at this time. No changes from sv previously documented assessment. Patient and/or family updated on plan of care and expected duration. Pain level reassessed. Patient is alert, oriented x 3, equal unlabored respirations, skin warm/dry/pink. 18:33 Reassessment: Patient appears in no apparent distress at this time. Patient and/or sv family updated on plan of care and expected duration. Pain level reassessed. Patient is alert, oriented x 3, equal unlabored respirations, skin warm/dry/pink. 19:15 General: Appears in no apparent distress. comfortable, Behavior is calm, cooperative. sf Pain: Denies pain. Neuro: No deficits noted. Level of Consciousness is awake, alert, Oriented to person, place, time, situation. Cardiovascular: Denies chest pain, Patient's skin is warm and dry. Rhythm is atrial fibrillation. Respiratory: Airway is patent Respiratory effort is even, unlabored, Respiratory pattern is regular, symmetrical. GI: No signs and/or symptoms were reported involving the gastrointestinal system. : No signs and/or symptoms were reported regarding the genitourinary system. Derm: Skin is pink, warm \\T\\ dry. Musculoskeletal: No signs and/or symptoms reported regarding the musculoskeletal system. 20:12 Reassessment: Patient appears in no apparent distress at this time. No changes from sf previously documented assessment. Patient and/or family updated on plan of care and expected duration. Pain level reassessed. Patient is alert, oriented x 3, equal unlabored respirations, skin warm/dry/pink. 21:49 Reassessment: Patient called out to report pain. Noman Long PA-C notified and will sf see patient and order medication. 22:15 Reassessment: Patient appears in no apparent distress at this time. No changes from sf previously documented assessment. Patient and/or family updated on plan of care and expected duration. Pain level reassessed. Patient is alert, oriented x 3, equal unlabored respirations, skin warm/dry/pink. 23:20 Reassessment: Patient appears in no apparent distress at this time. No changes from sf previously documented assessment. Patient and/or family updated on plan of care and expected duration. Pain level reassessed. Patient is alert, oriented x 3, equal unlabored respirations, skin warm/dry/pink. Vital Signs: 11:43 BP 118 / 86; Pulse 82; Resp 20; Temp 98.2; Pulse Ox 97% ; Weight 95.25 kg; Height 5 ft. ll1 9 in. (175.26 cm); Pain 5/10; 13:00 BP 126 / 90; Pulse 83; Resp 20; Pulse Ox 100% ; sv 14:10 BP 122 / 88; Pulse 85; Resp 20; Pulse Ox 100% ; sv 15:00 BP 123 / 88; Pulse 85; Resp 20; Pulse Ox 98% ; sv 15:02 Weight 96.8 kg (M); sv 16:00 Pulse 80; Resp 20; Pulse Ox 99% ; sv 17:48 BP 105 / 74; Pulse 77; Resp 20; Pulse Ox 97% ; sv 18:33 BP 115 / 74; Pulse 73; Resp 16; Pulse Ox 97% ; sv 19:18 BP 116 / 92; Pulse 77; Resp 18; Pulse Ox 97% ; sf 20:12 BP 135 / 92; Pulse 94; Resp 18; Pulse Ox 95% ; sf 22:00 BP 156 / 138; Pulse 89; Resp 18; Pulse Ox 99% ; sf 15:02 Body Mass Index 31.51 (96.80 kg, 175.26 cm) sv ED Course: 11:25 Patient arrived in ED. ds1 11:46 Triage completed. ll1 11:46 Arm band placed on. ll1 12:09 Milka Moore, APURVA is Primary Nurse. sv 12:11 Asa Cordoba MD is Attending Physician. rn 12:35 Patient has correct armband on for positive identification. Bed in low position. Call sv light in reach. Side rails up X 1. mails supervisor on. Pulse ox on. NIBP on. Door closed. Head of bed elevated. 12:35 Inserted saline lock: 20 gauge in right antecubital area, using aseptic technique. sv Blood collected. Flushed right antecubital with 5 ml normal saline. 12:39 EKG done, by ED staff, reviewed by Asa Cordoba MD. sv 12:40 COVID swab sent to lab. Flu and/or RSV swab sent to lab. sv 13:37 X-ray(s) taken. sv 13:49 XRAY Chest (1 view) In Process Unspecified. EDMS 14:32 Chapo Veliz MD is Hospitalizing Provider. rn 14:39 EKG done, by ED staff, reviewed by Asa Cordoba MD. sv 15:15 Missed attempt(s): 20 gauge in left antecubital area. Bleeding controlled, band aid sv applied, catheter tip intact. 15:17 Inserted saline lock: 22 gauge in left antecubital area, using aseptic technique. sv Flushed left antecubital with 5 ml normal saline. 17:09 transfer was initiated by Dr Andrew. was contacted by BALA Leon from [facility], pt will be accepted when a bed is available, will probably be after shift change, per BALA Leon. 19:12 Primary Nurse role handed off by Milka Moore RN sv 19:12 Report given to Catrachito MIXON. sv 19:14 Catrachito Navarro, APURVA is Primary Nurse. sf 19:53 called Alexandra from [facility] to get an update on the bed. She stated "we mw2 are still waiting on it I will call around and get some information.". 20:34 Moriah from [facility] called to inform us that " [facility] has only mw2 Transplant Unit ICU beds and the patient needs to have 2 negative covid swabs within 24 hours.". 21:25 Attending Physician role handed off by Asa Cordoba MD pkl 21:25 Germán Agrawal MD is Attending Physician. pkl 21:33 Ellis Holman is Hospitalizing Provider. pkl 22:17 Chapo Veliz MD is Hospitalizing Provider. pkl 23:56 No provider procedures requiring assistance completed. Patient admitted, IV remains in sf place. 23:58 Attempt to give report to 404 without success, no answer. 06/30 00:09 Talked to Nicole on 4th floor, she states "we aren't putting anyone in 404, there is sf already a patient in there. We aren't going to take that patient right now because we called that nurse in and we are waiting for her to get here, when she is here, he will be going into 409. She will call you for report when she is here.". Administered Medications: 06/29 12:46 Drug: SOLU-Medrol 125 mg Route: IVP; Site: right antecubital; sv 13:32 Follow up: Response: No adverse reaction sv 12:46 Drug: Xopenex (3) 1.25 mg Route: Inhalation; sv 14:49 Drug: Aspirin Chewable Tablet 324 mg Route: PO; sv 15:27 Follow up: Response: No adverse reaction sv 14:50 Drug: Lasix (furosemide) 40 mg Route: IVP; Site: right antecubital; sv 15:27 Follow up: Response: No adverse reaction sv 15:27 Not Given (Dr Tapia stated do not give): Heparin (VT-Bolus No thrombolytic) - HEParin sv 60 units/kg IVP once; Max 5000 units 15:27 Not Given (dr Tapia said do not give): Heparin ([place] Drip) 12 units/kg/[place] - ([place] [address] [place], D5W 500 ml) IV at calculated rate Per protocol; Max initial rate 1000 units/hr 15:55 Drug: Lasix (furosemide) 40 mg Route: IVP; Site: right antecubital; sv 16:30 Follow up: Response: No adverse reaction sv 15:59 Drug: Heparin (VT Drip) 12 units/kg/hr - (HEParin 66606 units, D5W 500 ml) sv {Co-Signature: iw (Santa Hung RN).} Route: IV; Rate: calculated rate; Site: right antecubital; 06/30 00:11 Follow up: IV Status: Infusion continued upon admission 06/29 15:59 Drug: Heparin (VT-Bolus No thrombolytic) - HEParin 60 units/kg {Co-Signature: iw (Santa Hung RN).} Route: IVP; Site: right antecubital; 16:30 Follow up: Response: No adverse reaction sv 22:15 Drug: fentaNYL (PF) 25 mcg Route: IVP; Site: right antecubital; sf 23:46 Follow up: Response: No adverse reaction sf Intake: 20:16 PO: 300ml (Water); Total: 300ml. sf Output: 20:16 Urine: 1200ml (Voided); Total: 1200ml. sf Outcome: 14:33 Decision to Hospitalize by Provider. rn 17:36 ER care complete, transfer ordered by MD. rn 21:35 Decision to Hospitalize by Provider. pkl 22:18 Decision to Hospitalize by Provider. pkl 06/30 00:24 Admitted to Tele accompanied by nurse, via wheelchair, room 204, Report called to miryam Bailey RN Condition: stable Instructed on the need for admit. 00:47 Patient left the ED. mw2 Signatures: Dispatcher [employer] EDMS Rosemary Roth Stephanie RN APURVA Germán Agrawal MD MD pkl Sanford, Demi ds1 Asa Cordoba MD MD rn [place], MyKena mw2 Sin Magallon RN RN 1 Catrachito Navarro RN RN Santa Hung RN iw Corrections: (The following items were deleted from the chart) 06/29 17:53 17:48 Pulse 77bpm; Resp 20bpm; Pulse Ox 97%; sv sv 21:53 21:49 Reassessment: Patient called out to report pain sf sf
--- NOTE | 2020-06-29 14:34 | EDPHYS ---
Physician Documentation [facility] Name: Valerio Berg Age: 69 yrs Sex: Male : 1950 Arrival Date: 06/29/2020 Time: 11:25 Bed 16 Private MD: ED Physician Germán Agrawal HPI: 06/29 14:22 This 69 yrs old Black Male presents to ER via Ambulatory with complaints of Shortness rn Of Breath, Cough. 14:22 The patient has shortness of breath with light activity. Onset: The symptoms/episode rn began/occurred 2 month(s) ago. Duration: The symptoms are intermittent. The patient's shortness of breath is aggravated by supine position, talking, walking. Associated signs and symptoms: Pertinent positives: non-productive cough, Pertinent negatives: fever, hemoptysis, loss of consciousness. Severity of symptoms: At their worst the symptoms were moderate in the emergency department the symptoms are unchanged. The patient has experienced similar episodes in the past. The patient has not recently seen a physician. Reports 2 months of sob, cough, worse over last 2 days, reports chest pain only with cough, compliant with diuretics. + CABG in past. Sent by pcp for evaluation of dyspnea.. Historical: - Allergies: 11:46 Betadine; ll1 11:46 Povidone-Iodine; ll1 - Home Meds: 22:33 aspirin 81 mg Oral TbEC 1 tab twice a day [Active]; Singulair 10 mg Oral tab 1 tab once sf daily [Active]; tramadol 50 mg Oral tab three times a day [Active]; Plavix 75 mg Oral tab 1 tab once daily [Active]; Protonix 40 mg Oral TbEC 1 tab once daily [Active]; levothyroxine 25 mcg tab 1 tab once daily [Active]; ropinirole 1 mg oral tab 1 tab twice a day [Active]; Tradjenta 5 mg oral tab 1 tab once daily [Active]; 22:56 torsemide 20 mg oral tab twice a day [Active]; atorvastatin 40 mg oral tab 1 tab once sf daily [Active]; 06/30 00:01 Senna-S 8.6-50 mg oral tab 2 tabs once daily [Active]; Flomax 0.4 mg Oral cp24 1 cap sf once daily [Active]; potassium chloride 20 mEq Oral TbER 1 tab once daily [Active]; - PMHx: 06/29 11:46 Borderline Diabetes; COPD; Myocardial infarction; ll1 22:33 Hypothyroidism; sf - PSHx: 11:46 CABG; ll1 - Immunization history:: Flu vaccine is up to date. - Social history:: Smoking status: Patient denies any tobacco usage or history of. - Family history:: not pertinent. - Hospitalizations: : No recent hospitalization is reported. ROS: 14:25 Constitutional: Negative for fever, chills, and weight loss, Eyes: Negative for injury, rn pain, redness, and discharge, Neck: Negative for injury, pain, and swelling, Cardiovascular: Negative for palpitations edema, Respiratory: + sob Abdomen/GI: Negative for abdominal pain, nausea, vomiting, diarrhea, and constipation, Back: Negative for injury and pain, MS/Extremity: Negative for injury and deformity, Skin: Negative for injury, rash, and discoloration, Neuro: Negative for headache, numbness, tingling, and seizure. Exam: 14:25 Constitutional: This is a well developed, well nourished patient who is awake, alert, rn mild tachypnea Head/Face: Normocephalic, atraumatic. Eyes: Periorbital areas with no swelling, redness, or edema. Cardiovascular: Irregular rhythm, tachycardic Respiratory: Mild tachypnea, diminished at bases Abdomen/GI: Soft, non-tender Skin: Warm, dry MS/ Extremity: Pulses equal, no cyanosis. Neurovascular intact. Full, normal range of motion. Equal circumference. Neuro: Awake and alert, GCS 15 Vital Signs: 11:43 BP 118 / 86; Pulse 82; Resp 20; Temp 98.2; Pulse Ox 97% ; Weight 95.25 kg; Height 5 ft. ll1 9 in. (175.26 cm); Pain 5/10; 13:00 BP 126 / 90; Pulse 83; Resp 20; Pulse Ox 100% ; sv 14:10 BP 122 / 88; Pulse 85; Resp 20; Pulse Ox 100% ; sv 15:00 BP 123 / 88; Pulse 85; Resp 20; Pulse Ox 98% ; sv 15:02 Weight 96.8 kg (M); sv 16:00 Pulse 80; Resp 20; Pulse Ox 99% ; sv 17:48 BP 105 / 74; Pulse 77; Resp 20; Pulse Ox 97% ; sv 18:33 BP 115 / 74; Pulse 73; Resp 16; Pulse Ox 97% ; sv 19:18 BP 116 / 92; Pulse 77; Resp 18; Pulse Ox 97% ; sf 20:12 BP 135 / 92; Pulse 94; Resp 18; Pulse Ox 95% ; sf 22:00 BP 156 / 138; Pulse 89; Resp 18; Pulse Ox 99% ; sf 15:02 Body Mass Index 31.51 (96.80 kg, 175.26 cm) sv MDM: 12:11 Patient medically screened. rn 14:30 Differential diagnosis: CHF exacerbation, Chronic Obstructive Pulmonary Disease rn Myocardial Infarction pneumonia, Pneumothorax pulmonary edema. Data reviewed: vital signs, nurses notes, lab test result(s), EKG, radiologic studies, and as a result, I will admit patient. 14:31 Counseling: I had a detailed discussion with the patient and/or guardian regarding: the rn historical points, exam findings, and any diagnostic results supporting the discharge/admit diagnosis, lab results, radiology results, the need for further work-up and treatment in the hospital. Admission orders: after a detailed discussion of the patient's condition and case, the admit orders are written by me. 14:31 ED course: Cardiology paged, waiting on callback.. rn 15:00 ED course: Consulted with Dr. Pena, states going to take to cath now. Heparin rn started, last PO intake 0800.. 15:42 ED course: Pt unable to lay flat, Dr. Pena will push back cath until more diuresis. . rn 17:34 ED course: Dr. Pnea spoke with Kaushal Cabrera at [facility], who agrees to take patient as return clerk, have accepted patient, but state after shift change. Doc-to-doc performed by Dr. Pena. . 21:25 ED course: [facility] called, said patient will need 2 pkl Negative Covid 19 tests 24 hours apart before they will accept the transfer. talked to Dr. Moscoso, will consult under Hospitalist service. Talked to Noman JIMENEZ ). For observation ariana Holman service. . 06/29 12:17 Order name: Basic Metabolic Panel; Complete Time: 13:34 rn 06/29 12:17 Order name: CBC with Diff; Complete Time: 14:17 rn 06/29 12:17 Order name: LFT's; Complete Time: 13:34 rn 06/29 12:17 Order name: NT PRO-BNP; Complete Time: 13:34 rn 06/29 12:17 Order name: Troponin (emerg Dept Use Only); Complete Time: 13:34 rn 06/29 12:17 Order name: XRAY Chest (1 view); Complete Time: 14:17 rn 06/29 12:18 Order name: Procalcitonin; Complete Time: 13:34 rn 06/29 14:07 Order name: SARS-COV-2 RT PCR; Complete Time: 14:17 EDMS 06/29 12:17 Order name: EKG; Complete Time: 12:18 rn 06/29 12:17 Order name: Cardiac monitoring; Complete Time: 12:47 rn 06/29 12:17 Order name: EKG - Nurse/Tech; Complete Time: 12:47 rn 06/29 12:17 Order name: IV Saline Lock; Complete Time: 12:47 rn 06/29 12:17 Order name: Labs collected and sent; Complete Time: 12:47 rn 06/29 12:17 Order name: O2 Per Protocol; Complete Time: 12:47 rn 06/29 12:17 Order name: O2 Sat Monitoring; Complete Time: 12:47 rn 06/29 14:49 Order name: EKG; Complete Time: 14:50 sv 06/29 14:49 Order name: EKG - Nurse/Tech; Complete Time: 14:49 sv Administered Medications: 12:46 Drug: SOLU-Medrol 125 mg Route: IVP; Site: right antecubital; sv 13:32 Follow up: Response: No adverse reaction sv 12:46 Drug: Xopenex (3) 1.25 mg Route: Inhalation; sv 14:49 Drug: Aspirin Chewable Tablet 324 mg Route: PO; sv 15:27 Follow up: Response: No adverse reaction sv 14:50 Drug: Lasix (furosemide) 40 mg Route: IVP; Site: right antecubital; sv 15:27 Follow up: Response: No adverse reaction sv 15:27 Not Given (Dr Tapia stated do not give): Heparin (MO-Bolus No thrombolytic) - HEParin sv 60 units/kg IVP once; Max 5000 units 15:27 Not Given (dr Regina said do not give): Heparin (MO Drip) 12 units/kg/[place] - ([place] [address] units, D5W 500 ml) IV at calculated rate Per protocol; Max initial rate 1000 units/hr 15:55 Drug: Lasix (furosemide) 40 mg Route: IVP; Site: right antecubital; sv 16:30 Follow up: Response: No adverse reaction sv 15:59 Drug: Heparin (MO Drip) 12 units/kg/hr - (HEParin 17745 units, D5W 500 ml) sv {Co-Signature: iw (Santa Hung RN).} Route: IV; Rate: calculated rate; Site: right antecubital; 06/30 00:11 Follow up: IV Status: Infusion continued upon admission sf 06/29 15:59 Drug: Heparin (MO-Bolus No thrombolytic) - HEParin 60 units/kg {Co-Signature: iw (Santa Hung RN).} Route: IVP; Site: right antecubital; 16:30 Follow up: Response: No adverse reaction sv 22:15 Drug: fentaNYL (PF) 25 mcg Route: IVP; Site: right antecubital; sf 23:46 Follow up: Response: No adverse reaction sf Disposition: 06/29/20 22:18 Hospitalization ordered by Chapo Veliz for Inpatient Admission. Preliminary diagnosis is Acute M. I.. - Bed requested for Telemetry/MedSurg (Inpatient). - Status is Inpatient Admission. mw2 - Condition is Stable. - Problem is new. - Symptoms are unchanged. Signatures: Dispatcher [employer] EDIA Milka Moore RN RN sv Lam, Pin, MD MD pkl Nieto, Roman, MD MD rn Garcia, Cindy, RN RN cg [place]brook, MyKena mw2 Sin Magallon RN RN ll1 Catrachito Navarro RN RN sf Santa Hung RN iw Corrections: (The following items were deleted from the chart) 13:20 12:18 CORONAVIRUS+MR.LAB.BRZ ordered. [facility] EDIA 17:35 14:33 Hospitalization Ordered by Chapo Veliz MD for Inpatient Admission. Preliminary rn diagnosis is Unspecified combined systolic (congestive) and diastolic (congestive) heart failure; Chronic obstructive pulmonary disease with (acute) exacerbation; Non-ST elevation (NSTEMI) myocardial infarction. Bed requested for Telemetry/MedSurg (Inpatient). Status is Inpatient Admission. Condition is Stable. Problem is an ongoing problem. Symptoms have improved. rn 21:33 17:36 06/29/2020 17:36 Transfer ordered to [facility]. pkl Diagnosis is Dyspnea, unspecified; Unspecified combined systolic (congestive) and diastolic (congestive) heart failure; Chronic obstructive pulmonary disease, unspecified; Non-ST elevation (NSTEMI) myocardial infarction. Reason for transfer: Higher level of care. Accepting physician is Dr. Cabrera. Condition is Stable. Problem is new. Symptoms have improved. rn 22:15 21:35 Hospitalization Ordered by Ellis Holman for Observation. Preliminary diagnosis pkl is Acute M. I.. Bed requested for Telemetry/MedSurg (observation). Status is Observation. Condition is Stable. Problem is new. Symptoms are unchanged. pkl 23:08 22:18 Hospitalization Ordered by A Keren LOVE for Inpatient Admission. Preliminary cg diagnosis is Acute M. I.. Bed requested for Telemetry/MedSurg (Inpatient). Status is Inpatient Admission. Condition is Stable. Problem is new. Symptoms are unchanged. pkl 04 00:14 04/05 23:08 06/29/2020 22:18 Hospitalization Ordered by A Keren LOVE for Inpatient cg Admission. Preliminary diagnosis is Acute M. I.. Bed requested for Telemetry/MedSurg (Inpatient). Status is Inpatient Admission. Condition is Stable. Problem is new. Symptoms are unchanged. cg 06/30 00:47 00:14 06/29/2020 22:18 Hospitalization Ordered by A Keren LOVE for Inpatient Admission. mw2 Preliminary diagnosis is Acute M. I.. Bed requested for Telemetry/MedSurg (Inpatient). Status is Inpatient Admission. Condition is Stable. Problem is new. Symptoms are unchanged. cg
[2020-06-29] MEDS ORDERED: FUROSEMIDE 40 MG/4 ML VIAL ONE ×2 (14:52→16:04)
[2020-06-29] MEDS ORDERED: ASPIRIN 81 MG CHEWABLE TABLET ONE (14:52)
[2020-06-29] MEDS ORDERED: HEPARIN/D5W 25,000 UNIT/500 ML BAG IV ONE (15:22)
[2020-06-29] MEDS ORDERED: HEPARIN 5000 UNIT/ML 1 ML VIAL ONE ×2 (15:22→15:30)
[2020-06-29] MEDS ORDERED: MIDAZOLAM HCL 2 MG/2 ML INJ ONE (15:30)
[2020-06-29] MEDS ORDERED: ATROPINE SULF 1 MG/10 ML SYR IV ONE (15:31)
[2020-06-29] MEDS ORDERED: VERAPAMIL HCL 10 MG/4 ML VIAL IV ONE (15:31)
[2020-06-29] MEDS ORDERED: FENTANYL CITR 100 MCG/2 ML ONE ×2 (15:31→22:24)
[2020-06-29] MEDS ORDERED: NA CHLORIDE 0.9% 500 ML ONE (15:53)
[2020-06-30] MEDS ORDERED: ALBUTEROL 2.5 MG/3 ML NEB SOL NEB PRN (02:41)
[2020-06-30] MEDS ORDERED: GLUCAGON 1 MG/VIAL IM PRN (02:41)
[2020-06-30] MEDS ORDERED: ONDANSETRON 4 MG/2 ML VIAL IV PRN (02:41)
[2020-06-30] MEDS ORDERED: D50W 25 GM/50 ML SYRINGE IV PRN (02:41)
[2020-06-30] MEDS ORDERED: HEPARIN/D5W 25,000 UNIT/500 ML BAG IV SCH (02:41)
[2020-06-30] MEDS: FUROSEMIDE 40 MG/4 ML VIAL IV SCH ×3 (03:25→17:10)
[2020-06-30 03:33] LABS: Potassium 4.7 mmol/L (3.5-5.1)
[2020-06-30 03:48] LABS: Absolute Lymphocytes (CBC) 0.6 K/uL (0.7-4.9); Basophils % 0.3 % (0-1.3); Hematocrit 37.2 % (39.6-49.0); Lymphocytes % 9.5 % (15.3-44.8); MPV 8.5 fL (7.6-11.3); RBC Red Blood Cell Count 4.52 M/uL (4.33-5.43)
[2020-06-30 06:00] VITALS: BMI 31.5
[2020-06-30] MEDS: carvediloL 3.125 MG TAB PO SCH ×2 (06:27→17:12)
[2020-06-30] MEDS: INSULIN -REGULAR HUMAN 50 UNIT/0.5 ML ML SQ SCH ×4 (07:30→20:26)
--- NOTE | 2020-06-30 08:10 | EKG ---
Test Date: 2020-06-29 Test Time: 14:39:29 New Grad Rn: SV MEASUREMENT RESULTS: Intervals: Rate: 91 FL: 174 QRSD: 166 QT: 394 QTc: 484 [place]: P: 56 FL: 174 QRS: -58 T: -70 INTERPRETIVE STATEMENTS: Sinus rhythm with premature atrial complexes with aberrant conduction Left axis deviation Right bundle branch block Inferior infarct, age undetermined Anterolateral infarct, age undetermined Abnormal ECG Compared to ECG 06/29/2020 12:29:35 Atrial premature complex(es) now present Aberrant conduction of supraventricular beat(s) now present Atrial fibrillation no longer present Myocardial infarct finding still present Electronically Signed On 06-30-20 08:08:17 CDT by Janak Moscoso
--- NOTE | 2020-06-30 08:11 | EKG ---
Test Date: 2020-06-29 Test Time: 12:29:35 Early Childhood Associate Teacher: SV MEASUREMENT RESULTS: Intervals: Rate: 103 [place]: QRSD: 160 QT: 390 QTc: 510 [place]: P: WI: QRS: -70 T: -64 INTERPRETIVE STATEMENTS: Atrial fibrillation with rapid ventricular response Left axis deviation Right bundle branch block Inferior infarct, age undetermined Anterolateral infarct, age undetermined Abnormal ECG Compared to ECG 08/12/2018 07:33:11 Myocardial infarct finding now present Sinus rhythm no longer present Electronically Signed On 06-30-20 08:08:20 CDT by Janak Moscoso
[2020-06-30] MEDS: ASPIRIN EC 81 MG TAB PO SCH (08:14)
[2020-06-30] MEDS: lisinopriL 10 MG TAB PO SCH (08:15)
[2020-06-30] MEDS: MORPHINE 4 MG/ML SYR IV PRN (14:24)
--- NOTE | 2020-06-30 16:36 | EKG ---
Test Date: 2020-06-30 Test Time: 09:52:45 School Bus Driver/Mechanic: LARISA MEASUREMENT RESULTS: Intervals: Rate: 70 [place]: 176 QRSD: 170 QT: 434 QTc: 468 [place]: P: GA: 176 QRS: -53 T: -27 INTERPRETIVE STATEMENTS: Sinus rhythm with premature atrial complexes Left axis deviation Right bundle branch block Inferior infarct, age undetermined Anterior infarct, age undetermined Abnormal ECG Compared to ECG 06/29/2020 14:39:29 Aberrant conduction of supraventricular beat(s) no longer present Myocardial infarct finding still present Electronically Signed On 06-30-20 16:35:57 CDT by Janak Moscoso
[2020-06-30] MEDS: predniSONE 20 MG TAB PO SCH (17:11)
[2020-06-30] MEDS: ACETYLCYST 20% 800 MG/4 ML VIAL PO SCH (17:19)
[2020-06-30] MEDS: ROPINIROLE HCL 1 MG TAB PO SCH (22:09)
--- NOTE | 2020-06-30 22:29 | HP ---
Date of Admission: 06/30/2020 Chief Complaint: Chest pain and shortness of breath. History Of Present Illness: This is a 69-year-old pleasant male patient, who contacted me on 06/28/2020, which is past Monday with complaints of chest pain and shortness of breath. After talking to him, he was advised to come to the emergency room. He was reluctant to do so, but I insisted on him coming to the emergency room for further evaluation and management. Unfortunately, the patient did not come to emergency room as advised until yesterday. He decided to come as he was not feeling any better and after he was evaluated, he was admitted to the hospital with non-STEMI and congestive heart failure problem. After he was evaluated in the emergency room, cardiology consultation was requested yesterday and Dr. Pena recommended for the patient to be transferred to [place] and ER physician contacted me that he will not be admitting the patient here as the patient will be going to [place] and late last night another ER physician contacted me to inform that receiving facility insisted that they wanted 2 negative COVID-19 test done 24 hours apart before they could accept the patient, thus the patient was admitted to our hospital last night and I saw him this morning. His initial COVID-19 test was negative done in our emergency room. Overall, he feels better this morning compared to yesterday and day before yesterday. Allergies: POVIDONE-IODINE, THAT IS ACCORDING TO HOSPITAL RECORD. ACCORDING TO OFFICE RECORD, HE IS LISTED NO KNOWN ALLERGIES. Medications: According to office record, he is on atorvastatin 40 mg daily at bedtime, ProAir inhaler as needed, aspirin 81 mg daily, Clopidogrel 75 mg daily, Senokot-S 2 tablets by mouth daily, Trelegy inhaler 1 puff by mouth daily, gabapentin 300 mg by mouth 3 times a day, levocetirizine 5 mg by mouth daily at bedtime, levothyroxine 25 mcg daily, Tradjenta 5 mg daily, montelukast 10 mg p.o. daily, potassium chloride 20 mEq by mouth daily, ropinirole 1 mg p.o. 2 times a day, tamsulosin 0.4 mg p.o. daily, torsemide 20 mg p.o. 2 times a day, and tramadol 50 mg p.o. 3 times a day as needed for arthritis pain. Review of Systems: Cardiovascular: As mentioned above. Respiratory: As mentioned above. All other systems reviewed and negative. Past Medical History: Significant for allergic rhinitis, COPD, hypothyroidism, type 2 diabetes mellitus, hypertension, hyperlipidemia, pulmonary hypertension, coronary artery disease, paroxysmal atrial fibrillation, nonalcoholic fatty liver disease which was treated in the past by Dr. Fregoso, chronic constipation, chronic kidney disease, benign prostatic hypertrophy, osteoarthritis at multiple sites, lumbar spinal stenosis, and hypokalemia. Past Surgical History: Teeth extraction, coronary artery bypass surgery, knee surgery, hip surgery, and fracture of radius and ulna and surgery for that. Family History: Mother with Alzheimer disease, diabetes, and tuberculosis. Social History: Prior history of smoking, not at present time. Use of alcohol, he quit using alcohol in 2006. Physical Examination: VITAL SIGNS: Last vital signs this morning, temperature 97.5, pulse 76, respiratory rate 18, blood pressure 122/67, oxygen saturation 98%. Height 5 feet 9 inches, weight 213 pounds. General: Awake, alert, oriented, not in distress. HEENT: Head atraumatic, normocephalic. Conjunctivae nonerythematous. Sclerae white. Mouth, no thrush or edema noted. Ears/Nose, no mass, lesion, discharge noted. Neck: Supple. No JVD, lymph nodes, bruit, thyromegaly noted. Lungs: Presence of bilateral rales noted in lower lung region. Not in any respiratory distress. Heart: Normal heart sounds. No murmur or gallop. Abdomen: Soft. Bowel sounds normal. No guarding, rigidity, tenderness, mass, hepatosplenomegaly, distention, or bruit noted. Extremities: No leg edema. No calf tenderness. Skin: No rash, ulcer, cellulitis. Lymphatics: No lymph node enlargement in neck, supraclavicular, infraclavicular region. Neuro: No focal neurological deficit. Chest: Unremarkable. External Genitalia: Deferred. Rectal: Deferred. Laboratory Data: EKG initially had shown atrial fibrillation and subsequent EKG had shown sinus rhythm. Initial white count from yesterday 8.7, hemoglobin 12.6, platelets 234. This morning, white count 6.2, hemoglobin 12.6, platelets 190. Yesterday, sodium 137, potassium 4, chloride 103, bicarb 26, BUN 37, creatinine 1.96, glucose 126. Liver function tests unremarkable. Troponin 69.50. This morning, troponin is 56.70. Sodium 137, potassium 4.7, chloride 103, bicarb 25, BUN 44, creatinine 2.14, glucose 148. COVID-19 test negative. Chest x-ray, no acute intrathoracic changes reported. Impression: 1. Non-ST elevation myocardial infarction. 2. Coronary artery disease. 3. Paroxysmal atrial fibrillation. 4. Hypertension. 5. Hyperlipidemia. 6. Type 2 diabetes mellitus. 7. Chronic kidney disease stage 3B. 8. Allergic rhinitis. 9. Chronic obstructive pulmonary disease. 10. Nonalcoholic fatty liver disease. 11. Hypothyroidism. 12. Osteoarthritis, multiple sites. 13. Restless legs syndrome. Plan: Admit the patient to hospital for further evaluation and management of this problem. The patient is appropriate for inpatient and is expected to spend 2 midnights in the hospital. Details were discussed with liquid natural gas plant operator, Dr. Moscoso, this morning and Dr. Moscoso is diuresing him well and yesterday Dr. Pena wanted him to go to [place] because the patient was not able to stay in supine position in order for him to do cardiac cath, but today Dr. Moscoso has informed me that he will try to do cardiac cath tomorrow and meanwhile will continue medical management. He was started on heparin drip per protocol, which we will continue that. Continue home medications per order and I have discussed details with the patient. ANNA/MODL Voice ID: [id number]
[2020-07-01] MEDS: carvediloL 3.125 MG TAB PO SCH (05:19)
[2020-07-01] MEDS: predniSONE 20 MG TAB PO SCH (05:20)
[2020-07-01] MEDS: ACETYLCYST 20% 800 MG/4 ML VIAL PO SCH ×2 (05:20→16:50)
[2020-07-01] MEDS ORDERED: ROPINIROLE HCL 1 MG TAB PO ONE (07:15)
[2020-07-01] MEDS: INSULIN -REGULAR HUMAN 50 UNIT/0.5 ML ML SQ SCH ×4 (07:30→21:00)
[2020-07-01] MEDS: lisinopriL 10 MG TAB PO SCH (07:36)
[2020-07-01] MEDS: ASPIRIN EC 81 MG TAB PO SCH (07:39)
[2020-07-01] MEDS: FUROSEMIDE 40 MG/4 ML VIAL IV SCH ×3 (07:49→21:12)
--- NOTE | 2020-07-01 08:20 | ECHO ---
HEIGHT: 5 ft 9 in WEIGHT: 213 lb 6.4 oz DATE OF STUDY: 06/30/[address]: Ray Veliz MD 2-DIMENSIONAL: YES M.MODE: YES DOPPLER: YES COLOR FLOW: YES TDS: PORTABLE: DEFINITY: BUBBLE STUDY: DIAGNOSIS: CONGESTIVE HEART FAILURE, MYOCARDIAL INFARCTION CARDIAC HISTORY: CATHERIZATION: YES SURGERY: YES PROSTHETIC VALVE: NO PACEMAKER: NO MEASUREMENTS (cm) DIASTOLIC (NORMALS) SYSTOLIC (NORMALS) IVSd 1.0 (0.6-1.2) LA Diam 3.5 (1.9-4.0) LVEF 27% LVIDd 4.2 (3.5-5.7) LVIDs 3.6 (2.0-3.5) %FS 12% LVPWd 1.0 (0.6-1.2) Ao Diam 2.6 (2.0-3.7) 2 DIMENSIONAL ASSESSMENT: RIGHT ATRIUM: NORMAL LEFT ATRIUM: NORMAL RIGHT VENTRICLE: NORMAL LEFT VENTRICLE: NORMAL SIZE TRICUSPID VALVE: NORMAL MITRAL VALVE: NORMAL PULMONIC VALVE: NORMAL AORTIC VALVE: NORMAL PERICARDIAL EFFUSION: NONE AORTIC ROOT: NORMAL LEFT VENTRICULAR WALL MOTION: PARADOXICAL SEPTUM. SEVERE GLOBAL HYPOKINESIS DOPPLER/COLOR FLOW: MILD MITRAL AND TRICUSPID REGURGITATION. COMMENTS: MILD MITRAL AND TRICUSPID REGURGTATION. SEVERE GLOBAL HYPOKINESIS - EJECTION FRACTION 27%. PARADOXICAL SEPTUM. TECHNOLOGIST: JODEE JONES
[2020-07-01] MEDS ORDERED: HEPA 1000U/500MLS 1,000 UNIT/500 ML BAG IV ONE (11:14)
[2020-07-01] MEDS ORDERED: ALBUTEROL 2.5 MG/3 ML NEB SOL ONE (11:22)
[2020-07-01] MEDS ORDERED: propofoL 200 MG/20 ML VIAL IV ONE (11:26)
[2020-07-01] MEDS ORDERED: LIDOCAINE 1% MPF 5 ML VIAL ONE (11:26)
[2020-07-01] MEDS ORDERED: NA CHLORIDE 0.9% 500 ML ONE (11:29)
[2020-07-01] MEDS ORDERED: FUROSEMIDE 20 MG/ 2ML VIAL ONE (12:14)
[2020-07-01] MEDS: MORPHINE 4 MG/ML SYR IV PRN (17:52)
[2020-07-01] MEDS: ROPINIROLE HCL 1 MG TAB PO SCH (21:10)
[2020-07-01] MEDS: carvediloL 6.25 MG TAB PO SCH (21:10)
--- NOTE | 2020-07-01 21:39 | CON ---
Reason For Consultation: Non-ST elevation myocardial infarction and congestive heart failure. History Of Present Illness: Mr. Berg is a 69-year-old black male who has a history of congestive h eart failure. He has a history of asthma. He has a history of coronary artery disease status post C ABG. He had a history of hypothyroidism. He has a history of diabetes, dyslipidemia. He came in wi th shortness of breath with mild activity, PND, orthopnea, pedal edema. No palpitation. No syncope. No chest pain. Symptoms have been going on for 2 months, worse in the last 2 days. The patient is unable to lay down on his back. Past Medical History: As stated above. Allergies: HE IS ALLERGIC TO BETADINE AND IODINE. Review of Systems: Negative. Social History: Negative. Family History: Noncontributory. Medications: At home include aspirin, Singulair, tramadol, Plavix, Protonix, ropinirole, Tradjenta, torsemide 20 mg twice a day, Lipitor 40 mg daily. He also takes Flomax and potassium. Physical Examination: General: The patient was in moderate respiratory distress. Vital Signs: His blood pressure was 115/74, his pulse was 73, in atrial fibrillation, his respirator y rate was 16, temperature was 98.2. HEENT: Exam is negative. Neck: Supple. No bruit, lymphadenopathy, JVD, or thyromegaly. Chest: Reveals rales at both bases. Cardiac: Exam revealed atrial fibrillation. No murmurs, gallops, rubs. Abdomen: Was a bit obese, but benign. Extremities: Revealed 1+ edema. Diagnostic Data: Basically showed EKG showed atrial fibrillation. Chest x-ray showed pulmonary barry a. Creatinine is 1.96. Hemoglobin was 12.6. He was on heparin drip with a PTT of 84. His sugar wa s 126. His troponin level was 69.50 with a BNP of 5119. Impression And Plan: 1.Non-ST elevation myocardial infarction. 2.Acute on chronic systolic congestive heart failure. 3.Chronic renal insufficiency stage IV. 4.Diabetes. 5.Asthma. 6.Hypothyroidism. 7.Gastroesophageal reflux disease. 8.Coronary artery disease status post coronary artery bypass grafting. 9.Dyslipidemia. Plan: The plan is to have him on heparin low-dose CORNELIA inhibitor. Continue heparin. Cont inue aspirin. Continue Plavix. Continue Protonix. Continue his Flomax and his thyroid medicine. W e will retreat him with steroid and Mucomyst before the catheterization. We will plan to do that onc e he is able to lie flat. MATTHEW/ARMANDO Voice ID: [id number] Report ID: [id number]
--- NOTE | 2020-07-01 21:41 | PN ---
Date of Progress Note: 06/30/2020 Mr. Berg was admitted with a non-STEMI, acute on chronic systolic congestive heart failure. Echoca rdiogram that was done showed an ejection fraction of 27% with paradoxical septal wall motion and sev ere global hypokinesis. The patient has a history of CAD, status post CABG. We had plan to do a hea rt catheterization on him but he is still unable to lie flat. We will plan to do a catheterization o n 07/01/2020 under general anesthesia if he can tolerate it. Meanwhile, we will continue carvedilol, Lasix IV 80 mg b.i.d. and lisinopril. Continue watching his creatinine. NB/MODL Voice ID: [id number] Report ID: [id number]
--- NOTE | 2020-07-01 21:47 | PN ---
Date of Progress Note: 07/01/2020 Mr. Berg has been followed for non-STEMI, acute on chronic systolic congestive heart failure with a n ejection fraction of 27%. He is feeling better. His O2 saturations improved, but he is still unab le to lay flat. We had plan to do a catheterization on him today under general anesthesia because of his inability to lie flat. Anesthesia felt uncomfortable with that because he could not lay flat at all. For now, I am going to increase his Lasix to 80 three times a day. I am going to double his c arvedilol. I am going to put him on lisinopril. I am going to continue his lisinopril as is. I am going to start him on Aldactone 25 mg daily and plan a catheterization for 07/02/2020. Depending whcuco t we find on Mr. Berg, he may be a candidate down the road for a defibrillator. MATTHEW/ARMANDO Voice ID: [id number] Report ID: [id number]
--- NOTE | 2020-07-01 23:39 | PN ---
Date of Progress Note: 07/01/2020 Subjective: The patient was seen this morning for followup. Denies any new complaints. Still has s ome cough. No chest pain. No nausea. No vomiting. Objective: Vital Signs: Reviewed. HEENT: Unremarkable. Lungs: Clear to auscultation. No rales. No wheezing. Heart: Sounds normal. Abdomen: Soft. Bowel sounds normal. No guarding, rigidity, tenderness, distention. Extremities: Exam no leg edema. Impression: 1.Ikr-KE-hgjgmdxal myocardial infarction. 2.Coronary artery disease. 3.Hypertension. 4.Chronic kidney disease stage 4. Plan: We will go ahead and continue current medications. Continue diuretic therapy, current antihyp ertensive medication, and the patient is on heparin drip. The patient was going to have cardiac cath today, but Anesthesia canceled that, so Dr. Moscoso is going to try to do that procedure again tomor row. We will repeat blood work tomorrow morning. ANNA/MODL Voice ID: [id number] Report ID: [id number]
[2020-07-02] MEDS: MORPHINE 4 MG/ML SYR IV PRN ×2 (02:13→07:24)
[2020-07-02 04:50] LABS: Absolute Lymphocytes (CBC) 1.1 K/uL (0.7-4.9); Basophils % 0.4 % (0-1.3); Hematocrit 35.8 % (39.6-49.0); Lymphocytes % 16.9 % (15.3-44.8); MPV 7.8 fL (7.6-11.3)
[2020-07-02 05:12] LABS: Magnesium 2.9 mg/dL (1.8-2.4); Potassium 3.7 mmol/L (3.5-5.1)
[2020-07-02] MEDS: ASPIRIN EC 81 MG TAB PO SCH (05:29)
[2020-07-02] MEDS: carvediloL 6.25 MG TAB PO SCH ×2 (05:29→20:45)
[2020-07-02] MEDS: ACETYLCYST 20% 800 MG/4 ML VIAL PO SCH (05:30)
[2020-07-02] MEDS ORDERED: NA CHLORIDE 0.9% 0 ML ONE (07:12)
[2020-07-02] MEDS: INSULIN -REGULAR HUMAN 50 UNIT/0.5 ML ML SQ SCH ×4 (07:30→20:44)
[2020-07-02] MEDS: lisinopriL 10 MG TAB PO SCH (08:27)
[2020-07-02] MEDS: SPIRONOLACTONE 25 MG TABLET PO SCH (08:27)
[2020-07-02] MEDS: FUROSEMIDE 40 MG/4 ML VIAL IV SCH ×3 (08:44→20:45)
[2020-07-02] MEDS ORDERED: HEPA 1000U/500MLS 1,000 UNIT/500 ML BAG IV ONE ×2 (10:43→11:06)
[2020-07-02] MEDS ORDERED: NA CHLORIDE 0.9% 500 ML ONE (11:03)
[2020-07-02] MEDS ORDERED: ATROPINE SULF 1 MG/10 ML SYR IV ONE (11:24)
[2020-07-02] MEDS ORDERED: NA CHLORIDE 0.9% 50 ML ONE (11:24)
[2020-07-02] MEDS ORDERED: METHYLPREDNISOLONE 125 MG INJ ONE (11:26)
[2020-07-02] MEDS ORDERED: NITROGLYCERIN/D5W 25 MG/250 ML BTL IV ONE (11:59)
[2020-07-02] MEDS ORDERED: NITROGLYCERIN 100 MCG/ML SYR (for cath lab use only) IV ONE (11:59)
[2020-07-02] MEDS ORDERED: PRASUGREL (EFFIENT) 10 MG TAB ONE (12:16)
[2020-07-02] MEDS ORDERED: NA CHLORIDE 0.9% 100 ML IV ONE (12:32)
[2020-07-02] MEDS ORDERED: MIDAZOLAM HCL 2 MG/2 ML INJ ONE (12:32)
[2020-07-02] MEDS ORDERED: ETOMIDATE 20 MG/10 ML VIAL IV ONE (12:32)
[2020-07-02] MEDS ORDERED: EPHEDRINE SULF 50 MG/ML VIAL ONE (12:32)
[2020-07-02] MEDS ORDERED: FENTANYL CITR 100 MCG/2 ML ONE (12:32)
[2020-07-02] MEDS ORDERED: Phenylephrine HCl 10 MG/ML 1 ML VIAL ONE (12:32)
[2020-07-02] MEDS ORDERED: NS 0.9% VIAL 10 ML ONE (12:32)
[2020-07-02] MEDS ORDERED: MORPHINE 4 MG/ML SYR ONE (13:32)
[2020-07-02] MEDS: ROPINIROLE HCL 1 MG TAB PO SCH (20:45)
[2020-07-02] MEDS ORDERED: NITROGLYCERIN 0.4 MG/TAB SL PRN (20:52)
[2020-07-02] MEDS ORDERED: MORPHINE 4 MG/ML SYR IV PRN (20:54)
[2020-07-02] MEDS ORDERED: ZOLPIDEM TARTRATE 5 MG TABLET PO PRN (20:59)
[2020-07-02] MEDS ORDERED: ATORVASTATIN 80 MG TAB PO SCH (21:00)
--- NOTE | 2020-07-02 22:22 | OP ---
Date of Procedure: 07/02/2020 Surgeon: Janak Moscoso MD Manager Alliance: Andria Long. Procedure: Left heart catheterization, ALBERTO injection, selective coronary arteriogram, primary stent of the mid RCA. Indication: Non-ST elevation myocardial infarction and congestive heart failure. Procedure In Detail: Mr. Berg is a 69-year-old black male with history of congestive heart failure . He came in with a non-STEMI, was unable to lie flat for a couple of days, partly because of conges tive heart failure. The other part is because of chronic back issue. We had postponed his catheteri zation for 48 hours now and finally he was brought to the research laboratory specialist. With the help of general anesthe scotty, we were able to do a catheterization on him today with the ALBERTO injection, selective coronary ar teriogram and primary stent of the mid RCA. In the research laboratory specialist, he was sedated by Anesthesiology. He w as given Solu-Medrol 125 because of iodine allergy. A 6-Maldivian sheath was introduced in the right co mmon femoral artery. Initially it was a short sheath. Diagnostic catheterization was done with JL4 and JR4. The right coronary artery showed a 95% mid RCA stenosis with ZAINAB 2 flow. There were no gr afts. The circumflex was normal. He was right dominant. LAD was completely occluded. The JR4 was able to cannulate the ALBERTO artery, which showed that it was patent to the LAD. We decided to interve ne with the RCA. A JR4 6-Maldivian guide was used initially, but it was kinked in attempt to cannulate the RCA. This was pulled. We put a 6-Maldivian long sheath into femoral artery instead of the short 6- Maldivian one. Following that, a 3DRC guide was used with side hole 6-Maldivian. We crossed the lesion wi th a 0.014 Dagmar wire successfully. A 3.0 x 16 mm Synergy stent was placed in the lesion at 14 atmo sphere with 0% residual. There was ZAINAB-3 flow afterwards. Total conscious sedation by Anesthesia w as about 60 minutes. There were no complications. Blood loss was 10 cc. Postoperative Diagnosis: Severe coronary artery disease status post primary successful stent of the RCA. He has 100% LAD with a patent ALBERTO to it. Circumflex is normal. He is right dominant. The joni arrington received Angiomax before the stent. He received 60 mg of Effient after the procedure. No aspi rin was given. He had already got that in the morning. He was on heparin, which we will discontinue . When he goes home, we will make sure he is on his home medication for CHF. He should also be on P lavix and high-dose statin. I will discuss his case further with Dr. Veliz. The patient will lay fla t for a couple of hours after this procedure. He will go home hopefully tomorrow, and we will see renee green in the office in the next 2 weeks. If his ejection fraction does not improve in the next 3 to 6 mo nths, we will consider him for a defibrillator pacemaker. MATTHEW/ARMANDO Voice ID: [id number] Report ID: [id number]
[2020-07-03 06:22] LABS: Absolute Lymphocytes (CBC) 0.5 K/uL (0.7-4.9); Basophils % 0.4 % (0-1.3); Hematocrit 34.4 % (39.6-49.0); Lymphocytes % 6.4 % (15.3-44.8); MPV 7.7 fL (7.6-11.3); RBC Red Blood Cell Count 4.16 M/uL (4.33-5.43)
[2020-07-03 06:43] LABS: Magnesium 2.9 mg/dL (1.8-2.4); Potassium 3.7 mmol/L (3.5-5.1); Thyroid Stimulating Hormone 0.627 uIU/mL (0.360-3.740)
[2020-07-03] MEDS: INSULIN -REGULAR HUMAN 50 UNIT/0.5 ML ML SQ SCH (07:30)
[2020-07-03] MEDS ORDERED: CLOPIDOGREL 75 MG TABLET PO SCH (09:00)
[2020-07-03] MEDS: ASPIRIN EC 81 MG TAB PO SCH (09:04)
[2020-07-03] MEDS: carvediloL 6.25 MG TAB PO SCH (09:04)
[2020-07-03] MEDS: lisinopriL 10 MG TAB PO SCH (09:05)
[2020-07-03] MEDS: SPIRONOLACTONE 25 MG TABLET PO SCH (09:05)
[2020-07-03] MEDS: FUROSEMIDE 40 MG/4 ML VIAL IV SCH (09:06)
[2020-07-03 09:07] VITALS: BP 121/70
[2020-07-03 09:38] VITALS: O2SAT 97
[2020-07-03 09:53] VITALS: TEMP 97.2
--- NOTE | 2020-07-03 12:35 | PN ---
Date of Progress Note: 07/02/2020 Subjective: The patient was seen this morning for followup. No new complaints or problems reported by him. Objective: Vital Signs: Reviewed. HEENT: Unremarkable. Lungs: Clear to auscultation. Heart: Sounds normal. Abdomen: Soft. Bowel sounds normal. No guarding, rigidity, tenderness, or distention. Extremities: No leg edema. Laboratory Data: White count 6.4, hemoglobin 11.7, platelets 250. Sodium 139, potassium 3.7, chlori de 103, bicarb 29, BUN 60, creatinine 1.98, glucose 144. ProBNP 5430. Impression: 1.Ure-BI-dzzeysujb myocardial infarction. 2.Congestive heart failure, chronic, systolic, with acute exacerbation. 3.Hypertension. 4.Chronic kidney disease stage 3B. 5.Anemia due to chronic kidney disease. Plan: We will go ahead and do current medical management. Follow up with marketing intelligence manager, Dr. Moscoso. The patient's echocardiogram shows low ejection fraction of 27% and I did explain this to the patie nt today. During the course of day today, the patient had a cardiac cath done by Dr. Moscoso and he detected 95% stenosis of mid RCA and stent was placed in this region. We will continue current medic al management. I will see him tomorrow for followup and possible discharge to go home tomorrow. ANNA/MODL Voice ID: [id number] Report ID: [id number]
--- NOTE | 2020-07-03 12:45 | EKG ---
Test Date: 2020-07-03 Test Time: 09:35:39 Digital Measurement Advisor: LARISA MEASUREMENT RESULTS: Intervals: Rate: 108 [place]: QRSD: 164 QT: 388 QTc: 519 [place]: P: MT: QRS: -79 T: 248 INTERPRETIVE STATEMENTS: Atrial fibrillation with rapid ventricular response Left axis deviation Right bundle branch block Inferior infarct, age undetermined Anterolateral infarct, age undetermined Abnormal ECG Compared to ECG 06/30/2020 09:52:45 Sinus rhythm no longer present Atrial premature complex(es) no longer present Myocardial infarct finding still present Electronically Signed On 07-03-20 12:45:10 CDT by Janak Moscoso
--- NOTE | 2020-07-03 22:11 | PN ---
Date of Progress Note: 07/03/2020 Subjective: Mr. Berg underwent a heart catheterization yesterday for non-STEMI and congestive hear t failure. Ejection fraction was low in the 30s. The heart catheterization revealed the patent ALBERTO to the LAD and normal circumflex. He had a 99% RCA stenosis with ZAINAB 1 flow. Stent was placed the re with excellent results and ZAINAB-3 flow. Overnight, the patient has done well. He has no complain ts. Physical Examination: Vital Signs: Stable. He was afebrile. Chest: Clear. Cardiac: Exam is normal. Abdomen: Benign. Extremities: Revealed no clubbing, cyanosis. He had trace edema. The right groin entry site appear ed to be intact without any hematoma. Impression: 1.Coronary artery disease status post coronary artery bypass grafting, patent ALBERTO, new stent of the RCA, doing well. 2.Acute on chronic systolic congestive heart failure. We will have to follow him along. Hopefully, he will improve after the RCA stent, but if his ejection fraction stays low in the next 90 days, we will consider defibrillator. He is not a candidate for Entresto because of his renal failure, but he should be on a low-dose CORNELIA inhibitor, beta blockers, Lasix and Aldactone. We will follow his blood work. I will follow him in the office in the near future. MATTHEW/ARMANDO Voice ID: [id number] Report ID: [id number]
--- NOTE | 2020-07-03 22:41 | DS ---
Date of Discharge: 07/03/2020 Disposition: Discharged to go home. Physical Examination: HEENT: Unremarkable. Lungs: Clear to auscultation. Heart: Sounds normal. Abdomen: Soft. Bowel sounds normal. No guarding, rigidity, tenderness, distention. Extremities: No leg edema. Right groin examination has small dressing present after cardiac cath ye sterday and he does have small right groin hematoma and Dr. Moscoso has evaluated him for this, and lionel dias has given his okay for discharge. Hospital Course: A 69-year-old male patient admitted to the hospital with complaints of chest pain a nd shortness of breath. Please see dictated H and P for more information. The patient was admitted to the hospital with xne-SE-trctlkdng myocardial infarction. He has a history of underlying coronary artery disease problem. His EKG showed normal sinus rhythm, normal EKG. Initial troponin was 69.50 and repeat troponin came down to 56.70. His COVID-19 test was negative. He was given aggressive IV diuretic therapy for his congestive heart failure problem, and his cough and shortness of breath pro blem improved. Dr. Moscoso was consulted from Cardiology and he did cardiac cath on him yesterday an d noted that the patient has a patent ALBERTO to LAD, but had 95% stenosis of mid RCA, and this was sten jigar successfully yesterday. Postoperatively, the patient has done well, this morning has no complain ts. He has a small right groin hematoma that Dr. Moscoso has evaluated him and suggested no need for any further intervention and from cardiac point of view, he has released the patient to go home. Me dically, the patient is stable for discharge. Discharge Diagnoses: 1.Tfr-UW-lblhbvjse myocardial infarction. 2.Coronary artery disease. 3.Paroxysmal atrial fibrillation. 4.Hypertension. 5.Hyperlipidemia. 6.Type 2 diabetes mellitus. 7.Chronic kidney disease stage 3B. 8.Allergic rhinitis. 9.Chronic obstructive pulmonary disease. 10.Nonalcoholic fatty liver disease. 11.Hypothyroidism. 12.Osteoarthritis, multiple sites. 13.Restless legs syndrome. Labs Done During This Hospitalization: Initial white count 8.7, hemoglobin 12.6, platelets 234. Las t white count today 8.3, hemoglobin 11.6, and a platelet count of 247. Last chemistry today, sodium 139, potassium 3.7, chloride 104, bicarb 28, BUN 62, creatinine 1.83, glucose 140, LDL 81, triglyceri de 94, total cholesterol 145, and HDL 45. TSH today 0.627. His echocardiogram done during this hosp italization shows ejection fraction 27%. Discharge Medications And Instructions: 1.Continue all prior home medication except following changes: a.Stop torsemide and start furosemide 40 mg 1 tablet by mouth 2 times a day. b.Increase atorvastatin 40 mg take 2 tablets by mouth daily. 2.Follow up at my office on 07/09/2020. Call office for appointment. 3.Follow up with Dr. Moscoso week after next. ANNA/MODL Voice ID: [id number] Report ID: [id number]
== END 2020-07-03 09:59 | disposition home or self-care (01) | DRG 246 ==
LOC: ER 11:22 → UNDOADMIN 15:21 → ERHOLD 15:21 → 2ND 06-30 00:47
PROVIDERS: ADMIT Hospitalist; ATTEND Internal Medicine
PROC: 027034Z Dilation of Coronary Artery, One Artery with Drug-eluting Intraluminal Device, Percutaneous Approach (ICD-10-PCS; principal; 2020-07-02)
PROC: 4A023N7 Measurement of Cardiac Sampling and Pressure, Left Heart, Percutaneous Approach (ICD-10-PCS; 2020-07-02)
PROC: B2111ZZ Fluoroscopy of Multiple Coronary Arteries using Low Osmolar Contrast (ICD-10-PCS; 2020-07-02)
DX: I21.4 Non-ST elevation (NSTEMI) myocardial infarction (principal); I50.23 Acute on chronic systolic (congestive) heart failure; I13.0 Hypertensive heart and chronic kidney disease with heart failure and stage 1 through stage 4 chronic kidney disease, or unspecified chronic kidney disease; N18.32 Chronic kidney disease, stage 3b; E11.22 Type 2 diabetes mellitus with diabetic chronic kidney disease; I25.2 Old myocardial infarction; J44.9 Chronic obstructive pulmonary disease, unspecified; Z88.8 Allergy status to other drugs, medicaments and biological substances; Z79.82 Long term (current) use of aspirin; Z87.891 Personal history of nicotine dependence; Z79.02 Long term (current) use of antithrombotics/antiplatelets; Z79.890 Hormone replacement therapy; Z79.84 Long term (current) use of oral hypoglycemic drugs; Z95.1 Presence of aortocoronary bypass graft; Z79.899 Other long term (current) drug therapy; Z20.822 Contact with and (suspected) exposure to COVID-19; E03.9 Hypothyroidism, unspecified; I25.10 Atherosclerotic heart disease of native coronary artery without angina pectoris; E78.5 Hyperlipidemia, unspecified; K21.9 Gastro-esophageal reflux disease without esophagitis; I48.0 Paroxysmal atrial fibrillation; J30.9 Allergic rhinitis, unspecified; K76.0 Fatty (change of) liver, not elsewhere classified; G25.81 Restless legs syndrome; M19.90 Unspecified osteoarthritis, unspecified site; D63.1 Anemia in chronic kidney disease; S30.1XXA Contusion of abdominal wall, initial encounter; I45.10 Unspecified right bundle-branch block
CPT/HCPCS: 36415; 71045; 80048; 80061; 80076; 82947; 83735; 83880; 84145; 84443; 84484; 85025; 85347; 85730; 93005; 93306; 93455; 96365; 96366; 96375; 99285; C1725; C1760; C1893; C9600; J0583; J1644; J1940; J2250; J2370; J2704; J2930; J3010; J7040; J7512; U0003

== ENCOUNTER 2020-08-26 11:44 | Emergency (ER) | payer OTHER ==
--- OUTSIDE RECORDS SUMMARY | 2020-08-26 11:49 | XMS REPORT | Continuity of Care Document ---
:1950 Author Organization [facility] t Address [address] [place] [address] Care Team Providers Name Role Phone Only, Test Attending Clinician Unavailable Aguilera DO Attending Clinician Problems This patient has no known problems. Allergies, Adverse Reactions, Alerts This patient has no known allergies or adverse reactions. Social History Social Habit Start Date Stop Date Quantity Comments Source Sex Assigned At [facility] Medications This patient has no known medications. Procedures This patient has no known procedures. Encounters Start End Encounter Admission Attending Care Care Encounter Source Date/Time Date/Time Type Type Clinicians Facility Department ID 2020-08-18 2020-08-18 Outpatient [facility] [id number] [facility]3] 00:00:00 [facility]00:00 [facility] 2020-08-17 2020-08-17 Outpatient [facility] [id number] [facility] 00:00:00 [facility]00[facility]00 [facility] 2020-08-13 2020-08-13 Outpatient [facility] [id number] [facility] 00[facility]00[facility]00 [facility] 2020-07-13 2020-07-13 [facility] [id number] [facility] 2020-06-19 2020-06-19 Out[facility] [id number] [facility] 2020-05-08 2020-05-08 Out[facility] [id number] [facility] 2020-05-01 2020-05-01 Outpatient [facility] [id number] [facility] 2020-04-29 2020-04-29 Out[facility] [id number] [facility] 2020-04-15 2020-04-15 Out[facility] [id number] [facility] 2020-03-02 2020-03-02 Out[facility] [id number] [facility] 2020-02-13 2020-02-13 Outpatient [facility] [id number] [facility] 2020-01-29 2020-01-29 Laboratory Only, Adc [facility] [id number] 10:22:41 10:37:41 Only Test [place] [id number] [place] [id number] [place] [id number] 2020-01-21 2020-01-21 Outpatient [facility] [id number] [facility] 2020-01-21 2020-01-21 Outpatient [facility] [id number] [facility] 2020-01-10 2020-01-10 Telephone Willy [facility] [id number] 00:00:00 00:00:00 Wyatt Iglesias [id number] [place] [id number] [place] [id number] [facility] Building Results This patient has no known results.
[2020-08-26 14:05] LABS: Absolute Lymphocytes (CBC) 1.6 K/uL (0.7-4.9); Basophils % 1.2 % (0-1.3); Hematocrit 37.3 % (39.6-49.0); Lymphocytes % 24.1 % (15.3-44.8); MPV 7.7 fL (7.6-11.3); RBC Red Blood Cell Count 4.41 M/uL (4.33-5.43)
[2020-08-26 14:16] LABS: Potassium 4.6 mmol/L (3.5-5.1)
[2020-08-26 14:27] LABS: Protime INR 0.99
[2020-08-26] MEDS ORDERED: BENZONATATE 100 MG CAP PO ONE (15:05)
--- NOTE | 2020-08-26 15:15 | RAD REPORT ---
EXAM DESCRIPTION: CT - Soft Tissue Neck W/Contr - 08/26/2020 2:45 pm CLINICAL HISTORY: left side neck swelling COMPARISON: Head C Spine Mpr Wo Con dated 07/17/2016 TECHNIQUE: During dynamic enhancement using 100 milliliters nonionic IV contrast, axial 5 millimeter thick images of the neck were obtained. All CT scans are performed using dose optimization technique as appropriate and may include automated exposure control or mA/KV adjustment according to patient size. FINDINGS: Provided history indicates left-sided neck mass appearing during a blood draw. There is no indication of the blood draw was in proximity to the neck. The patient's IV infiltrated. Exam is evaluated as a noncontrast study. Patient renal function preclu ded administration of additional contrast. In the left-side of the neck there is a 7 cm CC x 6 cm AP x 4 cm TR isodense soft tissue mass. This e xtends from the angle of the mandible inferiorly to near the supraclavicular region. Musculature and vasculature are displaced by the large mass. There are additional small lymph nodes seen in the left- side neck soft tissues. Mass has no associated fat or calcification. No pharyngeal mucosal mass or asymmetry seen. No tonsil, tongue base, epiglottis or laryngeal abnorma lity evident. Prominent cervical spine degenerative change present without acute component. Carotid calcifications are present. Multiple left axillary lymph nodes are present detailed in separate CT chest report. IMPRESSION: Large approximately 7 x 6 x 4 cm mass in the left-side of the neck. A few small adjacent cervical lymph nodes are present. Lymphoma or other malignancy would be the primary consideration. Presence of axillary abnormal lympha denopathy would support malignant etiology as well. Absence of contrast is limiting. This is not believed to be an acute hematoma. There is no indication patient blood draw was in proximity to the neck.
--- NOTE | 2020-08-26 15:18 | RAD REPORT ---
EXAM DESCRIPTION: CT - Thorax W/ Con - 08/26/2020 2:45 pm CLINICAL HISTORY: cough COMPARISON: Thorax Wo Con dated 08/12/2018 TECHNIQUE: Axial 5 mm thick images of the chest were obtained without IV contrast. The patient's IV infiltrated during the injection. Due to patient's renal status additional contrast could not be admi nistered. All CT scans are performed using dose optimization technique as appropriate and may include automated exposure control or mA/KV adjustment according to patient size. FINDINGS: No mass or suspicious finding of the lung parenchyma. No pleural thickening or pleural eff usion. No pneumothorax. No abnormal mediastinal or hilar masses or lymphadenopathy seen. No gross aortic or pulmonary artery finding suspected. Assessment is limited in the absence of IV contrast. No cardiomegaly or pericardi al effusion. Left hemidiaphragm elevation is present. No chest wall mass seen. Patient has multiple left axillary lymph nodes are present up to 3 cm in siz e. Lymph nodes extend deep to the pectoralis musculature on the left. Given the presence of the large left neck mass, malignant lymph nodes are suspected. No abnormal right axillary lymph nodes. IMPRESSION: Abnormal lymph nodes in the left axilla and extending deep to the pectoralis musculature . When viewed in conjunction with a large left neck mass, lymphoma or other malignant etiology would be the primary consideration.
[2020-08-26 15:30] LABS: Blood Morphology Comment NOT SEEN (NOT SEEN); Platelet Estimate ADEQ; White Blood Cell Scan OK (OK)
--- NOTE | 2020-08-26 17:08 | ER ---
Nurse's Notes [facility] Name: Valerio Berg Age: 69 yrs Sex: Male : 1950 Arrival Date: 08/26/2020 Time: 11:47 Bed 25 Private MD: Chapo Veliz C Diagnosis: Localized swelling, mass and lump, neck-left lateral neck Presentation: 08/26 12:40 Chief complaint: Patient states: lump appeared on left side of neck when he went to get ap3 blood drawn. Patient states that the facility which he was getting his blood drawn sent him to the ER to be evaluated. patient denies difficulty swallowing. 12:40 Acuity: ADRIÁN 3 ap3 12:40 Method Of Arrival: Wheelchair ap3 12:40 Coronavirus screen: Client denies travel out of the [place] in the last 14 days. Ebola ap3 Screen: No symptoms or risks identified at this time. Initial Sepsis Screen: Does the patient meet any 2 criteria? No. Patient's initial sepsis screen is negative. Does the patient have a suspected source of infection? No. Patient's initial sepsis screen is negative. Onset of symptoms was August 26, 2020. 12:43 Risk Assessment: Do you want to hurt yourself or someone else? Patient reports no ap3 desire to harm self or others. Historical: - Allergies: 13:25 Betadine; ap3 13:25 Povidone-Iodine; ap3 - Home Meds: 13:25 aspirin 81 mg Oral TbEC 1 tab twice a day [Active]; atorvastatin 40 mg Oral tab 1 tab ap3 once daily [Active]; Flomax 0.4 mg Oral cp24 1 cap once daily [Active]; levothyroxine 25 mcg tab 1 tab once daily [Active]; Plavix 75 mg Oral tab 1 tab once daily [Active]; potassium chloride 20 mEq Oral TbER 1 tab once daily [Active]; Protonix 40 mg Oral TbEC 1 tab once daily [Active]; ropinirole 1 mg Oral tab 1 tab twice a day [Active]; Senna-S 8.6-50 mg Oral tab 2 tabs once daily [Active]; Singulair 10 mg Oral tab 1 tab once daily [Active]; torsemide 20 mg Oral tab twice a day [Active]; Tradjenta 5 mg Oral tab 1 tab once daily [Active]; tramadol 50 mg Oral tab three times a day [Active]; - PMHx: 13:25 Borderline Diabetes; COPD; Hypothyroidism; Myocardial infarction; ap3 - PSHx: 13:25 cardiac stent; ap3 - Immunization history:: Adult Immunizations up to date. - Social history:: Smoking status: Patient denies any tobacco usage or history of. Patient uses alcohol, on a daily basis. vehicle has Breathalyzer . Screenin:26 Abuse screen: Denies threats or abuse. Nutritional screening: No deficits noted. ap3 Tuberculosis screening: No symptoms or risk factors identified. Fall Risk No fall in past 12 months (0 pts). Secondary diagnosis (15 points) impaired mobility, No IV (0 pts). Ambulatory Aid- Crutches/Cane/Walker (15 pts). Gait- Weak (10 pts.). Mental Status- Oriented to own ability (0 pts). Total Carlos Fall Scale indicates Low Risk Score (25-44 pts). Fall prevention measures have been instituted. Placed close to Nursing Station Frequent Obs/Assesments occuring As available Patient and Family Educated on Fall Prevention Program and strategies. Assessment: 12:23 General: Appears in no apparent distress. comfortable, Behavior is calm, cooperative, ap3 appropriate for age. Pain: Denies pain. Neuro: Level of Consciousness is awake, alert, obeys commands, Oriented to person, place, time, situation. Cardiovascular: Denies chest pain, Capillary refill < 3 seconds. Respiratory: Airway is patent Respiratory effort is even, unlabored, Respiratory pattern is regular, symmetrical. GI: No signs and/or symptoms were reported involving the gastrointestinal system. : No signs and/or symptoms were reported regarding the genitourinary system. EENT: Throat ENLARGED AREA ON THE PATIENTS LEFT SIDE OF HIS NECK. PATIENT STATES THAT IT WAS NOT THERE, BUT WHEN HE WENT TO GIVE BLOOD WORK HE FELT A PAIN ON THE LEFT SIDE OF HIS NECK, AND THEN THE LUMP APPEARED. PATIENT STATES THE CENTER WHERE HE WAS GIVING BLOOD SENT HIM TO THE ER FOR FURTHER EVALUATION. . 13:39 Reassessment: Patient and/or family updated on plan of care and expected duration. Pain ap3 level reassessed. Patient is alert, oriented x 3, equal unlabored respirations, skin warm/dry/pink. 16:21 Reassessment: Patient is alert, oriented x 3, equal unlabored respirations, skin ap3 warm/dry/pink. patient on phone with family member. Vital Signs: 13:38 BP 99 / 52; Pulse 68; Resp 21; Pulse Ox 96% on R/A; Pain 0/10; ap3 15:26 BP 124 / 84; Pulse 78; Resp 23; Pulse Ox 97% on R/A; Pain 0/10; ap3 16:40 BP 112 / 61; Pulse 68; Resp 25; Pulse Ox 99% on R/A; Pain 0/10; ap3 ED Course: 11:47 Patient arrived in ED. as 11:47 Chapo Veliz MD is Private Physician. as 12:18 Afshan Corcoran, APURVA is Primary Nurse. ap3 12:27 Patient has correct armband on for positive identification. Call light in reach. Pulse ap3 ox on. NIBP on. Door closed. Noise minimized. 12:41 Mikey Noe MD is Attending Physician. tw4 13:13 Giancarlo Velarde PA is PHCP. cp 13:16 Inserted saline lock: 22 gauge in left antecubital area, using aseptic technique. ap3 13:22 Triage completed. ap3 14:45 CT Soft Tissue Neck W/contr In Process Unspecified. EDMS 14:45 CT Chest W/ Con In Process Unspecified. EDMS 14:[address] via stretcher. ap3 15:27 Nurse Practitioner and/or Physician Aesthetics Instructor to see patient. ap3 15:46 XRAY Chest (1 view) In Process Unspecified. EDMS 17:06 Nurse Practitioner and/or Physician Aesthetics Instructor to see patient. ap3 17:06 Chapo Veliz MD is Referral Physician. cp 17:14 No provider procedures requiring assistance completed. Patient did not have IV access ap3 during this emergency room visit. 17:15 Arm band placed on left wrist. ap3 Administered Medications: 14:58 Drug: Tessalon Perle (benzonatate) 200 mg Route: PO; jl7 17:16 Follow up: Response: No adverse reaction ap3 Outcome: 17:07 Discharge ordered by MD. cp 17:15 Discharged to home ambulatory. ap3 17:15 Condition: good 17:15 Discharge instructions given to patient, Instructed on discharge instructions, follow up and referral plans. Demonstrated understanding of instructions, follow-up care. 17:16 Patient left the ED. ap3 Signatures: Dispatcher [employer] EDMS Mile Hamilton Corey, PA PA cp Leal, Jahala, RN RN jl7 Mikey Noe MD MD tw4 Afshan Corcoran RN RN ap3 Corrections: (The following items were deleted from the chart) 15:19 15:12 BP 116 / 117; Pulse 65bpm; Resp 15bpm; Pulse Ox 97% RA; Pain 0/10; ap3 ap3 15:31 15:31 Reassessment: No changes from previously documented assessment. Patient states ap3 symptoms have improved. ap3
--- NOTE | 2020-08-26 17:08 | EDPHYS ---
Physician Documentation [facility] Name: Valerio Berg Age: 69 yrs Sex: Male : 1950 Arrival Date: 08/26/2020 Time: 11:47 Bed 25 Private MD: Chapo Veliz C ED Physician Mikey Noe HPI: 08/26 13:25 This 69 yrs old Black Male presents to ER via Wheelchair with complaints of Neck cp Problem - lump. 13:25 The patient or guardian complains of swelling, tenderness. The symptoms are located on cp the left lateral neck. Onset: The symptoms/episode began/occurred suddenly, just prior to arrival. Context: The problem was sustained at a while in hospital lab getting blood drawn, The neck injury/problem resulted from from unknown cause. Associated signs and symptoms: Pertinent positives: cough, Pertinent negatives: fever, difficulty swallowing. Historical: - Allergies: 13:25 Betadine; ap3 13:25 Povidone-Iodine; ap3 - Home Meds: 13:25 aspirin 81 mg Oral TbEC 1 tab twice a day [Active]; atorvastatin 40 mg Oral tab 1 tab ap3 once daily [Active]; Flomax 0.4 mg Oral cp24 1 cap once daily [Active]; levothyroxine 25 mcg tab 1 tab once daily [Active]; Plavix 75 mg Oral tab 1 tab once daily [Active]; potassium chloride 20 mEq Oral TbER 1 tab once daily [Active]; Protonix 40 mg Oral TbEC 1 tab once daily [Active]; ropinirole 1 mg Oral tab 1 tab twice a day [Active]; Senna-S 8.6-50 mg Oral tab 2 tabs once daily [Active]; Singulair 10 mg Oral tab 1 tab once daily [Active]; torsemide 20 mg Oral tab twice a day [Active]; Tradjenta 5 mg Oral tab 1 tab once daily [Active]; tramadol 50 mg Oral tab three times a day [Active]; - PMHx: 13:25 Borderline Diabetes; COPD; Hypothyroidism; Myocardial infarction; ap3 - PSHx: 13:25 cardiac stent; ap3 - Immunization history:: Adult Immunizations up to date. - Social history:: Smoking status: Patient denies any tobacco usage or history of. Patient uses alcohol, on a daily basis. vehicle has Breathalyzer . ROS: 13:30 Constitutional: Negative for body aches, chills, fever, poor PO intake. cp 13:30 Eyes: Negative for injury, pain, redness, and discharge. cp 13:30 ENT: Negative for drainage from ear(s), ear pain, sore throat, difficulty swallowing, difficulty handling secretions. 13:30 Neck: Positive for swelling, of the left lateral neck, Negative for injury or acute deformity, bony tenderness. 13:30 Cardiovascular: Negative for chest pain, palpitations. 13:30 Respiratory: Positive for cough, with no reported sputum, Negative for shortness of breath, wheezing. 13:30 Abdomen/GI: Negative for abdominal pain, nausea, vomiting, and diarrhea. 13:30 Skin: Negative for rash. 13:30 Neuro: Negative for altered mental status, headache, syncope, weakness. 13:30 All other systems are negative. Exam: 13:35 Constitutional: The patient appears in no acute distress, alert, awake, cp non-diaphoretic, non-toxic, well developed, well nourished. 13:35 Head/Face: Normocephalic, atraumatic. cp 13:35 Eyes: Periorbital structures: appear normal, Conjunctiva: normal, no exudate, no injection, Sclera: no appreciated abnormality, Lids and lashes: appear normal, bilaterally. 13:35 ENT: External ear(s): are unremarkable, Nose: is normal, Mouth: Lips: moist, Oral mucosa: moist, Posterior pharynx: Airway: no evidence of obstruction, patent, swelling, is not appreciated. 13:35 Neck: External neck: swelling, that is moderate, left lateral neck, tenderness, is not appreciated, ROM/movement: is normal, is supple, without pain, no range of motions limitations. 13:35 Chest/axilla: Inspection: normal, Palpation: is normal, no crepitus, no tenderness. 13:35 Cardiovascular: Rate: normal, Rhythm: regular, JVD: is not appreciated. 13:35 Respiratory: the patient does not display signs of respiratory distress, Respirations: normal, no use of accessory muscles, no retractions, labored breathing, is not present, Breath sounds: bronchial sounds, that are mild, are heard diffusely, stridor, is not appreciated, wheezing: is not appreciated. 13:35 Abdomen/GI: Exam negative for discomfort, distension, guarding, Inspection: abdomen appears normal. 13:35 Skin: abscess, not appreciated, cellulitis, is not appreciated, no rash present. Vital Signs: 13:38 BP 99 / 52; Pulse 68; Resp 21; Pulse Ox 96% on R/A; Pain 0/10; ap3 15:26 BP 124 / 84; Pulse 78; Resp 23; Pulse Ox 97% on R/A; Pain 0/10; ap3 16:40 BP 112 / 61; Pulse 68; Resp 25; Pulse Ox 99% on R/A; Pain 0/10; ap3 MDM: 12:42 Patient medically screened. tw4 13:30 Differential diagnosis: hematoma, aneurysm, malignant mass, enlarged lymph node. cp 15:41 Physician consultation: A Keren LOVE was called at 15:33, was contacted at 15:33, will cp call back to discuss patient. 16:14 Physician consultation: A Keren LOVE was called at 16:14, left message on voicemail. cp 17:06 Physician consultation: A Keren LOVE was contacted at 17:00, regarding patient's cp condition, outpatient follow-up, tomorrow, and will see patient in office, tomorrow. 17:07 Data reviewed: vital signs, nurses notes, lab test result(s), radiologic studies, CT cp scan, and as a result, I will discharge patient. 17:07 Counseling: I had a detailed discussion with the patient and/or guardian regarding: the cp historical points, exam findings, and any diagnostic results supporting the discharge/admit diagnosis, lab results, radiology results, the need for outpatient follow up, an water resources engineer, to return to the emergency department if symptoms worsen or persist or if there are any questions or concerns that arise at home. 08/26 13:21 Order name: Basic Metabolic Panel; Complete Time: 14:18 cp 08/26 14:19 Interpretation: Normal except: CL 109; BUN 42; CRE 1.55; GFR 54. cp 08/26 13:21 Order name: CBC with Diff; Complete Time: 15:32 cp 08/26 14:20 Interpretation: Normal except: HGB 12.0; HCT 37.3; MN% 16.7. cp 08/26 13:21 Order name: PT-INR; Complete Time: 15:20 cp 08/26 13:21 Order name: XRAY Chest (1 view) 08/26 13:21 Order name: CT Soft Tissue Neck W/contr; Complete Time: 15:20 08/26 15:30 Order name: CBC Smear Scan; Complete Time: 15:32 EDGA 08/26 13:21 Order name: Cardiac monitoring; Complete Time: 13:31 08/26 13:21 Order name: IV Saline Lock; Complete Time: 13:31 08/26 13:21 Order name: Labs collected and sent; Complete Time: 14:05 08/26 13:21 Order name: O2 Per Protocol; Complete Time: 13:31 08/26 13:21 Order name: O2 Sat Monitoring; Complete Time: 13:31 08/26 13:46 Order name: CT Chest W/ Con; Complete Time: 15:20 cp Administered Medications: 14:58 Drug: Tessalon Perle (benzonatate) 200 mg Route: PO; jl7 17:16 Follow up: Response: No adverse reaction ap3 Disposition: 18:29 Co-signature as Attending Physician, Mikey Noe MD I agree with the assessment and tw4 plan of care. Disposition: 08/26/20 17:07 Discharged to Home. Impression: Localized swelling, mass and lump, neck - left lateral neck. - Condition is Stable. - Medication Reconciliation Form, Thank You Letter, Antibiotic Education, Prescription Opioid Use form. - Follow up: Chapo Veliz MD; When: Tomorrow; Reason: Recheck today's complaints. - Problem is new. - Symptoms are unchanged. - Notes: Follow-up with DR Veliz tomorrow for reevaluation Signatures: Dispatcher [employer] EDGA Giancarlo Velarde PA PA cp Leal, Jahala, RN RN jl7 Mikey Noe MD MD tw4 Afshan Corcoran RN RN ap3 Corrections: (The following items were deleted from the chart) 17:16 17:07 08/26/2020 17:07 Discharged to Home. Impression: Localized swelling, mass and ap3 lump, neck - left lateral neck. Condition is Stable. Forms are Medication Reconciliation Form, Thank You Letter, Antibiotic Education, Prescription Opioid Use. Follow up: Chapo Veliz; When: Tomorrow; Reason: Recheck today's complaints. Problem is new. Symptoms are unchanged. cp
[2020-08-26 17:28] VITALS: BP 112/61; O2SAT 99
--- NOTE | 2020-08-26 17:29 | RAD REPORT ---
EXAM DESCRIPTION: RAD - Chest Single View - 08/26/2020 3:46 pm CLINICAL HISTORY: COUGH COMPARISON: Portable June 29 TECHNIQUE: AP portable chest image was obtained 08/26/2020 3:46 pm . FINDINGS: Lung volumes are low. No acute lung parenchymal process. Interstitial pattern matches comp arison. Heart size is upper normal. Vasculature within normal limits. Wires are in place. No measurab le pleural effusion and no pneumothorax. No acute bony abnormality seen. No acute aortic finding. Col onic interposition seen between the liver and right hemidiaphragm. IMPRESSION: No acute cardiopulmonary process. No significant change from comparison.
== END 2020-08-26 17:16 | disposition home or self-care (01) ==
LOC: ER 11:44
DX: R22.1 Localized swelling, mass and lump, neck (principal); J44.9 Chronic obstructive pulmonary disease, unspecified; I25.2 Old myocardial infarction; Z95.818 Presence of other cardiac implants and grafts; Z79.01 Long term (current) use of anticoagulants; Z79.82 Long term (current) use of aspirin; Z88.8 Allergy status to other drugs, medicaments and biological substances
CPT/HCPCS: 85025; 80048; 36415; 85610; 71260; 70491; 71045; Q9967; 99284

== ENCOUNTER 2020-09-01 15:59 | Emergency (ER) | payer OTHER ==
--- OUTSIDE RECORDS SUMMARY | 2020-09-01 16:06 | XMS REPORT | Continuity of Care Document ---
:1950 Author Organization [facility] t Address [address] [place] [address] Care Team Providers Name Role Phone Only, Test Attending Clinician Unavailable Aguilera DO Attending Clinician Ana Benedict Attending Clinician Ana Benedict Admitting Clinician Problems Condition Condition Condition Status Onset Resolution Last Treating Co mments Source Name Details Category Date Date Treatment Clinician Date NSTEMI Diagnosis Active 2016-06-15 Mem oria 3- 11:09:00 l NSTEMI 00:00: Ty 00 Active 06/15/2016 [facility] ACUTE Diagnosis Active 2016-07-19 Mem oria CHEST PAIN - 21:59:00 l ACUTE 00:00: Ty CHEST PAIN 00 Active 06/15/2016 [facility] CHEST Diagnosis Active 2016-07-19 Mem oria PAIN, 21:59:00 l UNSPECIFIE CHEST Soumya nn D PAIN, UNSPECIFIE D Active [place] Mild Problem Resolve 2018-08-06 2018-08-06 Memoria chronic d 03-27 13:34:33 13:34:33 l obstructiv Mild 00:00: Rafat dias chronic 00 pulmonary obstructiv disease e (disorder) pulmonary disease (disorder) Resolved 03/27/2012 Problem 08/06/2018 [facility] Allergies, Adverse Reactions, Alerts Allergy Allergy Status Severity Reaction(s) Onset Inactive Treating Comm ents Source Name Type Date Date Clinician Betadine Betadine Active Mo Crawford Social History Social Habit Start Date Stop Date Quantity Comments Source Sex Assigned At [facility] Smoking Status Start Date Stop Date Source Social History 2016-06-15 16:58:56 2016-06-15 16:58:56 [facility] Medications Ordered Filled Start Stop Current Ordering Indication Dosage Frequency Signature Comments Components Source Medication Medication Date Date Medication? Clinician (SIG) Name Name lisinopril Yes 2.5 mg = 1 M emoria 2.5 mg oral 4-06 tab, PO, l tablet 13:46: Daily, # [facility] 00 30 tab, 0 Refill(s) AMIODarone Yes 200 mg = 1 M emoria 200 mg oral 4-06 tab, PO, l tablet 13:46: BID, Ty 00 please start this regimen after 1 [...] INHALATION l 0.09 13:46: , QID, PRN [facility] MG/ACTUAT 00 for Metered wheezing, Dose # 25 gm, 0 Inhaler Refill(s) [Proventil] Advair Yes 1 puff, Memoria Diskus 250 4-06 INHALATION l mcg-50 mcg 13:46: , BID, # Her cazares inhalation 00 60 puff, 0 powder Refill(s) torsemide Yes 10 mg = 1 Mem oria 10 mg oral 4-06 tab, PO, l tablet 13:46: Daily, # [facility] 00 30 tab, 0 Refill(s) metoprolol Yes 25 mg = 1 Me moria 25 mg oral 4-06 tab, PO, l tablet, 13:46: Daily, # Rafat n extended 00 30 tab, 0 release Refill(s) clopidogrel Yes 75 mg = 1 M emoria 75 mg oral 4-06 tab, PO, l tablet 13:46: Daily, # [facility] 00 30 tab, 0 Refill(s) atorvastati Yes 40 mg = 1 M emoria n 40 mg 4-06 tab, PO, l oral tablet 13:46: Bedtime, # [facility] 00 30 tab, 0 Refill(s) aspirin 81 [...] 14:00: Demadex) Amiodarone No Notes: Memor ia 4-04 (Same as: l 14:06: Cordarone) metoprolol No Notes: Memor ia extended - (Same as: l release 14:00: Toprol XL) Do Not Crush atorvastati No Notes: Danilo jerry n 4- (Same as: l 02:00: Lipitor) chlorhexidi No Notes: Danilo jerry ne -03 (Same As: l gluconate 14:00: Hibiclens) He rmann 40 MG/ML 00 Medicated Liquid Soap Glucagon No 1 mg, Memoria 06-26 Route: IM, l 15:21: Drug form: PDR/INJ, PRN, Dosing Weight 103.653, kg, PRN Blood Glucose Results, Start date: 06/26/16 10:21:00 CDT, Duration: 30 day, Stop date: 07/26/16 10:20:00 CDT Dextrose No 25 gm, 50 Danilo jerry 50% Syringe 06-26 mL, Route: l 15:21: IVP, Drug [facility] 00 Form: INJ, Dosing Weight 103.653, kg, PRN, PRN Blood Glucose Results, Start date: 06/26/16 10:21:00 CDT, Duration: 30 day, Stop date: 07/26/16 10:20:00 CDT Insulin, No Notes: Memoria Aspart, 06-26 Roll in l Human 15:21: palms of [facility] hands gently; Do not shake vigorously . (Same as: NovoLOG) "single patient use only" WASTE: F/P - Black; E - Municipal Trash Bin Stable for 28 days at room temperatur e. Expires in days from ____Date Lasix No Notes: Memoria 06-26 (Same as: l 12:30: Lasix) [facility] 00 albumin No Notes: Memoria human 5% 06-26 LOT#: l intravenous 12:30: Ty solution 00 ___ Mfg: WASTE: F/P - Red; E -Red (Same as: Albuminar) "blood product derivative " glucagon No 1 mg, Memoria 06-26 Route: l 03:17: INJ, Drug [facility] 00 form: PDR/INJ, PRN, PRN Blood Glucose [...] 06-26 Roll in l 03:17: palms of Ty 00 hands gently; Do not shake vigorously . (Same as: NovoLOG) "single patient use only" WASTE: F/P - Black; E - Municipal Trash Bin Stable for 28 days at room temperatur e. Expires in days from ____Date atorvastati No Notes: Danilo jerry n 06-26 (Same As: l 02:00: Lipitor) [facility] Lovenox No Notes: Memoria 06-26 (Same as: l 01:00: Lovenox) [facility] 00 Dilaudid No 0.5 mg, Memori a - 0.5 mL, l 23:54: Route: Ty 00 IVP, Drug form: INJ, ONCE, Dosing Weight 103.653, kg, Priority: STAT, Start date: 06/25/16 18:54:00 CDT, Stop date: 06/25/16 18:54:00 CDT pantoprazol No Notes: Danilo jerry e - Tablet l 14:00: should not [facility] 00 be chewed or crushed. (Same as: Protonix) Mupirocin No 1 appl, Memor ia 0.02 MG/MG 06-25 Route: l Topical 14:00: NASAL, Ty Ointment 00 BID, Drug form: OINT, Start date: 06/25/16 9:00:00 CDT, Duration: 5 day, Stop date: 06/29/16 17:00:00 CDT clopidogrel No Notes: Danilo jerry - (Same As: l 14:00: Plavix) Ty Aspirin 325 No 325 mg, Mem oria MG Enteric 06-25 Route: PO, l Coated 14:00: Drug form: Soumya nn Tablet 00 ECTAB, Daily, Dosing Weight 102.926, kg, Start date: 06/25/16 9:00:00 CDT, Duration: 30 day, Stop date: 07/24/16 9:00:00 CDT heparin No Notes: Memoria 4-01 porcine l 13:00: heparin [facility] 00 vancomycin No 2001 mg: Me moria 4-01 infuse l 06:30: over 2.5 hours cefuroxime No Notes: Memor ia + [...] CDT chlorhexidi No Notes: Danilo jerry ne 4-01 (Same As: l gluconate 02:00: Peridex) Herm jigna 1.2 MG/ML 00 Mouthwash Aspirin 325 No Notes: Danilo jerry MG Oral 4-01 Take with l Tablet 02:00: food. EPINEPHrine No Notes: Danilo jerry 4 mg + 3-31 (Same as: l sodium 23:38: Adrenalin) Soumya nn chloride 00 Suremed - 0.9% INJ Injectable 246 mL drug used as inhalation treatment. MEDICATION WASTE Product Size: 1 mg Product Wasted: ___ mg insulin No Notes: Memoria aspart 3-31 Roll in l 23:37: palms of [facility] 00 hands gently; Do not shake vigorously . (Same as: Splice Machine) "single patient use only" WASTE: F/P - Black; E - Municipal Trash Bin Stable for 28 days at room temperatur e. Expires in days from ____Date insulin No Notes: Memoria aspart 3-31 Roll in l 23:36: palms of [facility] 00 hands gently; Do not shake vigorously [...] Me moria 06-24 RT l 23:16: DOCUMENTAT [facility] ION (Same as: Proventil) Fentanyl No Notes: Memoria 06-24 Concentrat l 23:00: ion is 20 [facility] micrograms /ml metoprolol No Notes: Memor ia tartrate 06-24 (Same as: l 23:00: Lopressor) Ty Cefuroxime No Notes: Memor ia 06-24 (Same As: l 23:00: Kefurox, Ty Zinacef) MEDICATION WASTE Product Size: 1500 mg Product Wasted: ___ mg PHOS-NaK No Notes: Memoria 06-24 (Same as: l 22:44: Phos-NaK) Ty 00 Each 1.5 gm pkt has 250mg phosphorou s. Mix w/2.5oz water and stir. potassium No Notes: Memori a phosphate + 06-24 (Same as: l sodium 22:44: K Ty chloride 00 Phosphate. 0.9% INJ ) 1 mMol 250 mL phoshate has 1.47 mEq potassium Infuse over 4 hours Calcium No Notes: Memoria Gluconate 06-24 WASTE: F/P l 22:44: - Sink; E Ty 00 - Municipal Trash Bin Magnesium No Notes: Memori a Oxide 06-24 (Same as: l 22:44: Mag-Ox Ty 00 400) Magnesium oxide [id number] g elemental magnesium Dose=____m g magnesium oxide (___mg elemental magnesium) Magnesium No Notes: Memori a Sulfate 3- WASTE: F/P l 22:44: - Sink; E Ty 00 - Municipal Trash Bin potassium No Notes: Memori a chloride 3-31 (Same as: l 22:44: Potassium [facility] Chloride) Calcium No Notes: Memoria Carbonate 3-31 (Same As: l 500 MG 22:44: Tums) Ty Chewable 00 Calcium Tablet Carbonate 500 mg = 200 mg elemental calcium Dose = mg calcium carbonate ( mg elemental calcium) Insulin, No Notes: Memoria Aspart, - Roll in l Human 22:44: palms of [facility] 00 hands gently; Do not shake vigorously . (Same as: NovoLOG) "single patient use only" WASTE: F/P - Black; E - Municipal Trash Bin Stable for 28 days at room temperatur e. Expires in days from ____Date sodium No 45 mmol, Memoria phosphate + 3-31 15 mL, l sodium 22:44: Route: [facility] chloride 00 IVPB, PRN, 0.9% INJ Dosing 250 mL Weight 103.653, kg, PRN Abnormal Lab Result, Start date: 06/24/16 17:44:00 CDT, Duration: 30 day, Stop date: 07/24/16 17:43:00 CDT, FOR ICU USE ONLY potassium No Notes: Memori a phosphate 3-31 (Same as: l 22:44: K Ty Phosphate) sodium No 15 mmol, Memoria phosphate 3-31 250 mL, l 22:44: Route: [facility] 00 IVPB, Drug form: INJ, PRN, Dosing Weight 103.653, kg, PRN Abnormal Lab Result, Start date: 06/24/16 17:44:00 CDT, Duration: 30 day, Stop date: 07/24/16 17:43:00 CDT, FOR ICU USE ONLY Naloxone No Notes: Memoria 3-31 Same as l 22:44: Narcan Ty 00 Saline No Notes: Memoria Flush 0.9% 3-31 (Same as: l 22:44: BD Ty 00 Posiflush) Dulcolax No Notes: Memoria Laxative 06-24 (Same As: l 22:44: Dulcolax, [facility] 00 Bisco-Lax) Lactulose No Notes: Memori a 667 MG/ML 06-24 (Same l Oral 22:44: as:Chronul [facility] Solution 00 ac) albumin No Notes: Memoria human 5% 06-24 LOT#: l intravenous 22:44: [facility] solution 00 ___ Mfg: WASTE: F/P - [...] Memoria 06-24 (Same as: l 22:44: Zofran) [facility] MEDICATION WASTE Product Size: 4 mg Product Wasted: ___ mg Xopenex No 1.25 mg, Memori a 06-24 Route: l 22:44: NEB, PRN, Ty 00 Dosing Weight 102.926, kg, PRN Respirator y Protocol, Start date: 06/24/16 17:44:00 CDT, Duration: 30 day, Stop date: 07/24/16 17:43:00 CDT Morphine No Notes: Memoria 06-24 (Same l 22:44: as:MORPhin [facility] 00 e Sulfate) Albuterol No Notes: Memori a 0.833 MG/ML 06-24 (Same as: l / 22:44: Duoneb) Ty Ipratropium 00 [place] 0.167 MG/ML Inhalant Solution Glucagon No 1 mg, Memoria 06-24 Route: IM, l 22:44: Drug form: Ty 00 PDR/INJ, PRN, Dosing Weight 103.653, kg, [...] 25 gm, 50 Danilo jerry 50% Syringe 3-31 mL, Route: l 22:44: IVP, Drug Form: INJ, Dosing Weight 103.653, kg, PRN, PRN Blood Glucose Results, Start date: 06/24/16 17:44:00 CDT, Duration: 30 day, Stop date: 07/24/16 17:43:00 CDT Acetaminoph No Notes: Do M emoria en 06-24 not exceed l 22:44: 4 gm/day. [facility] 00 (Same as: Tylenol) vasopressin No Route: IV, Memoria (ANES) 06-24 Drug form: l 22:40: INJ, ONCE, Stop date: 06/24/16 17:40:00 CDT ondansetron No Route: IV, Memoria (ANES) 06-24 Drug form: l 22:23: INJ, ONCE, Stop date: 06/24/16 17:23:00 CDT protamine No Route: IV, Me moria (ANES) 06-24 Drug form: l 22:03: INJ, ONCE, [facility] 00 Stop date: 06/24/16 17:03:00 CDT calcium No Route: IV, Danlio jerry chloride 06-24 Drug form: l (ANES) 21:48: INJ, ONCE, Soumya Stop date: 06/24/16 16:48:00 CDT nitroglycer No [...] CDT, Stop date: 06/24/16 13:39:00 CDT sodium 2016-0 No 1,000 mL, Memori [...] 3- 250 ml/hr, l 0.154 12:34: Infuse [facility] MEQ/ML 00 Over: 1 Injectable hr, Route: [...] a 3-26 (Same as: l 23:00: Lopressor) [facility] 00 Lopressor No Notes: Memori a 3-26 (Same as: l 22:00: Lopressor) [facility] Levemir No Notes: Memoria 3-25 Same as [...] a 3-25 Same as: l 00:00: Ancef Ty Mupirocin No 1 appl, Memor ia 0.02 MG/MG 06-18 Route: l Topical 00:00: NASAL, Ty Ointment 00 ONCALL, Drug form: OINT, Start date: 06/17/16 19:00:00 CDT, Duration: 30 day, Stop date: 07/17/16 18:59:00 CDT sodium No 250 mL, Memoria chloride -24 Rate: On l 0.9% INJ 23:54: call for Soumya nn 250 mL 00 use with blood product administra tion, Dosing Weight 102.926, kg, Route: IV, Total Volume: 250, Start Date: 06/17/16 18:54:00 CDT, Duration: 30 day, Stop date: 07/17/16 18:53:00 CDT, Replace Every: 24 hr Saline No Notes: Memoria Flush 0.9% 3-24 (Same as: l 23:54: BD [facility] Posiflush) metoprolol No 12.5 mg, Mem oria tartrate 3-24 Route: PO, l 23:54: Drug form: Ty 00 TAB, Q12H, Dosing Weight 102.926, kg, Priority: NOW, Start date: 06/17/16 18:54:00 CDT, Duration: 30 day, Stop date: 07/17/16 9:00:00 CDT Nitroglycer No Notes: 1 Me castillo in 0.02 3-24 gram is l MG/MG 17:00: approximat Rafat n Topical 00 zara 1 inch Ointment of nitroglyce rin ointment (20 mg NTG per gram) (Same as:Nitro-B id) Enoxaparin No Notes: Memor ia 3-24 Nurse to l 14:00: ensure Ty 00 documentat ion of patient education per anticoagul ation policy. (Same as: Lovenox) Albuterol No Notes: Memori a 0.833 MG/ML 06-17 (Same as: l / 01:00: Duoneb) Ty Ipratropium 00 [place] 0.167 MG/ML Inhalant Solution [DuoNeb] Budesonide No Notes: Memor ia 0.25 MG/ML 06-16 (Same As: l Inhalant 23:32: Pulmicort) Her cazares Solution 00 [Pulmicort] Solu-Medrol No Notes: Danilo jerry 06-16 (Same l 23:12: as:Solu-ME Ty 00 DROL, A-Methapre d) Lovenox No Notes: Memoria 3-23 Nurse to l 23:00: ensure Ty 00 documentat ion of patient education per anticoagul ation policy. (Same as: Lovenox) Sodium No 250 mL, Memoria Chloride 323 250 ml/hr, l 0.154 22:00: Infuse Ty MEQ/ML 00 Over: 1 Injectable hr, Route: Solution IV, 250, Drug form: INJ, ONCALL, Priority: Routine, Dosing Weight 102.926 kg, Start date: 06/16/16 17:00:00 CDT, Duration: 1 doses or times Sodium No 750 mL, Memoria Chloride 323 Rate: 75 l 0.154 21:15: ml/hr, [facility] MEQ/ML 00 Infuse Injectable over: 10 Solution hr, Route: IV, Dosing Weight 102.926 kg, Total Volume: 750, Start date: 06/16/16 16:15:00 CDT, Stop date: 06/17/16 16:14:00 CDT acetaminoph No Notes: Do M emoria en-codeine 3-23 not exceed l #3 21:11: 4gm/day of acetaminop hen. (Same as: Tylenol with Codeine # 3) Acetaminoph No Notes: Do M emoria en 3-23 not exceed l 21:11: 4 gm/day. Ty 00 (Same as: Tylenol) Sodium 2016- No 500 mL, Memoria Chloride 3-23 Rate: 150 l 0.154 21:11: ml/hr, [facility] MEQ/ML 00 Infuse Injectable over: 3.3 Solution hr, Route: IV, Dosing Weight 102.926 kg, Total Volume: 500, Start date: 06/16/16 16:11:00 CDT, Stop date: 06/16/16 20:10:00 CDT Sodium No 250 mL, Memoria Chloride 3-23 Route: l 0.9% IV 20:49: IVPB, [facility] 00 Start date: 06/16/16 15:49:00 CDT, Duration: [...] 3-23 Route: IM, l 20:45: Drug form: [facility] 00 PDR/INJ, PRN, Dosing Weight 102.926, kg, PRN Blood Glucose Results, Start date: 06/16/16 15:45:00 CDT, Duration: 30 day, Stop date: 07/16/16 15:44:00 CDT Sodium No 1,000 mL, Memori a Chloride 3-23 Rate: 100 l 0.154 14:19: ml/hr, [facility] MEQ/ML 00 Infuse Injectable over: 10 Solution [...] id) metoprolol No Notes: Memor ia tartrate 06-16 (Same as: l 05:00: Lopressor) Ty 00 Sodium No 250 mL, Memoria Chloride 3-23 250 ml/hr, l 0.154 03:00: Infuse Ty MEQ/ML 00 Over: 1 Injectable hr, Route: Solution IV, 250, Drug form: INJ, ONCALL, Priority: Routine, Dosing Weight 102.926 kg, Start date: 06/15/16 22:00:00 CDT, Duration: 1 doses or times Sodium No 750 mL, Memoria Chloride 3-23 Rate: 75 l 0.154 02:02: ml/hr, Ty MEQ/ML 00 Infuse Injectable over: 10 Solution hr, Route: IV, Dosing Weight 102.926 kg, Total Volume: 750, Start date: 06/15/16 21:02:00 CDT, Duration: 24 hr, Stop date: 06/16/16 21:01:00 CDT Saline No Notes: Memoria Flush 0.9% 06-16 (Same as: l 02:00: BD Posiflush) atorvastati No Notes: Danilo jerry n 06-16 (Same as: l 02:00: Lipitor) metoprolol No 25 mg, Memor ia tartrate 06-16 Route: PO, l 02:00: Drug form: TAB, Q12H, Dosing Weight 102.926, kg, Start date: 06/15/16 21:00:00 CDT, Duration: 30 day, Stop date: 07/15/16 9:00:00 CDT Enoxaparin No Notes: Memor ia 06-16 Nurse to l 00:00: ensure documentat ion of patient education per anticoagul ation policy. (Same as: Lovenox) Albuterol No Notes: Memori a 0.833 MG/ML 06-15 (Same as: l / 18:56: Duoneb) Ipratropium 00 [place] 0.167 MG/ML Inhalant Solution [DuoNeb] Saline No Notes: Memoria Flush 0.9% - (Same as: l 18:52: BD Posiflush) Labetalol No Notes: Memori a - (Same as: l 18:52: Normodyne, Trandate) Push over 2 minutes Give bolus over 2-3 minutes. Trazodone No Notes: Memori a Hydrochlori - (Same As: l de 50 MG 18:52: Desyrel) Soumya nn Oral Tablet 00 Miralax No Notes: Memoria 3-22 Dissolve l 18:52: in 8 oz of water or juice. (Same as: Miralax) Nitroglycer No Notes: Danilo jerry in - (Same l 18:52: as:Nitroqu ick, Nitrostat) "Do Not Crush" Sublingual tablet Morphine No Notes: Memoria 3-22 (Same l 18:52: as:MORPhin e Sulfate) Ondansetron No Notes: Danilo jerry 3-22 (Same as: l 18:52: Zofran) Ty 00 Vital Signs Vital Name Observation Time Observation Value Comments Source Respitory Rate 2016-06-30 20:27:00 Memori al Ty Systolic (mm Hg) 2016-06-30 20:27:00 Danilo rial Ty Diastolic (mm Hg) 2016-06-30 20:27:00 Mem orial Ty Heart Rate 2016-06-30 20:27:00 [facility] Ty Respitory Rate 2016-06-30 17:09:00 Memori al [facility] Systolic (mm Hg) 2016-06-30 17:09:00 Danilo rial [facility] Diastolic (mm Hg) 2016-06-30 17:09:00 Mem orial Ty Heart Rate 2016-06-30 17:09:00 [facility] Ty Systolic (mm Hg) 2016-06-30 13:00:00 Danilo rial Ty Diastolic (mm Hg) 2016-06-30 13:00:00 Mem orial Ty Heart Rate 2016-06-30 13:00:00 [facility] Ty Respitory Rate 2016-06-30 13:00:00 Memori al Ty Weight 2016-06-29 10:00:00 [facility] Ty Weight 2016-06-28 10:23:00 [facility] Ty Height 2016-06-25 05:04:00 177.8 cm [facility] Height 2016-06-25 03:47:00 177.8 cm [facility] Height 2016-06-24 22:55:00 177.8 cm [facility] Ty Temperature Oral (F) 2016-06-24 14:55:00 97.6 F [facility] Ty Weight 2016-06-24 10:00:00 [facility] Temperature Oral (F) 2016-06-20 13:00:00 97.9 F [facility] Ty BMI Calculated 2016-06-15 16:47:00 Memori al Ty Procedures Procedure Date / Time Performed Performing Clinician [facility] e Repair of knee collateral 1975-03-27 00:00:00 Me morial [facility] ligaments Encounters Start End Encounter Admission Attending Care Care Encounter Source Date/Time Date/Time Type Type Clinicians Facility Department ID 2020-08-18 2020-08-18 Outpatient [facility] [id number] [facility] 2020-08-17 2020-08-17 [facility] [id number] [facility] 2020-08-13 2020-08-13 [facility] [id number] [facility] 2020-07-13 2020-07-13 [facility] [id number] [facility] 2020-06-19 2020-06-19 [facility] [id number] [facility] 2020-05-08 2020-05-08 [facility] [id number] [facility] 2020-05-01 2020[facility]05-01 [id number] 2020-04-29 2020-04-29 [facility] [id number] [facility] 2020-04-15 2020-04-15 [facility] [id number] [facility] 2020-03-02 2020-03-02 Out[facility] [id number] [facility] 2020-02-13 2020-02-13 Out[facility] [id number] [facility] 2020-01-29 2020-01-29 Laboratory Only, Adc [facility] [id number] 10:22:41 10:37:41 Only Test [place] [id number] [place] [id number] [place] [id number] 2020-01-21 2020-01-21 Outpatient [facility] [id number] [facility] 2020-01-21 2020-01-21 Outpatient [facility] [id number] [facility] 2020-01-10 2020-01-10 Telephone Willy [facility] [id number] 00:00:00 00:00:00 Wyatt Iglesias [id number] [place] [id number] [facility] [id number] [facility] 2018-01-16 2018-01-17 Outpatient [facility] [id number] 13:43:00 23:59:59 00 2016-06-15 2016-06-30 Outpatient Eugenia Benedict [facility] [id number] 13:52:00 19:05:00 Khalid 81 Results Test Description Test Time Test Comments Results Result Sourc e Comments CHEM PANEL 2016-06-30 69 [facility] 09:31:00 [facility] CHEM PANEL 2016-06-30 104 [facility] 09:31:00 Ty CHEM PANEL 2016-06-30 4.0 [facility] 09:31:00 [facility] CHEM PANEL 2016-06-30 140 [facility] 09:31:00 Ty CHEM PANEL 2016-06-30 1.10 [facility] 09:31:00 [facility] CHEM PANEL 2016-06-30 21 [facility] 09:31:00 [facility] CHEM PANEL 2016-06-30 13.0 [facility] 09:31:00 Ty CHEM PANEL 2016-06-30 27 [facility] 09:31:00 Ty CHEM PANEL 2016-06-30 8.2 [facility] 09:31:00 [facility] CHEM PANEL 2016-06-30 104 [facility] 09:31:00 [facility] CHEM PANEL 2016-06-29 2.6 [facility] 10:06:00 Ty ELECTROLYTES 2016-06-29 15.4 [facility] 10:06:00 [facility] ELECTROLYTES 2016-06-29 69 [facility] 10:06:00 Ty ELECTROLYTES 2016-06-29 110 [facility] 10:06:00 Ty ELECTROLYTES 2016-06-29 26 [facility] 10:06:00 Ty ELECTROLYTES 2016-06-29 105 [facility] 10:06:00 [facility] ELECTROLYTES 2016-06-29 1.10 [facility] 10:06:00 Ty ELECTROLYTES 2016-06-29 137 [facility] 10:06:00 Ty ELECTROLYTES 2016-06-29 4.4 [facility] 10:06:00 [facility] ELECTROLYTES 2016-06-29 21 [facility] 10:06:00 [facility] ELECTROLYTES 2016-06-29 8.1 [facility] 10:06:00 Ty HEMATOLOGY 2016-06-29 0.3 [facility] 10:06:00 Ty HEMATOLOGY 2016-06-29 9.5 [facility] 10:06:00 Ty HEMATOLOGY 2016-06-29 1.2 [facility] 10:06:00 Ty HEMATOLOGY 2016-06-29 1.4 [facility] 10:06:00 Ty HEMATOLOGY 2016-06-29 0.0 [facility] 10:06:00 Ty HEMATOLOGY 2016-06-29 0.2 [facility] 10:06:00 [facility] HEMATOLOGY 2016-06-29 Moderate [facility] 10:06:00 *ABN*(06/29/16 Ty 5:06 AM) HEMATOLOGY 2016-06-29 Normal (06/29/16 [facility] 10:06:00 5:06 AM) [facility] HEMATOLOGY 2016-06-29 9.7 [facility] 10:06:00 [facility] HEMATOLOGY 2016-06-29 77.0 [facility] 10:06:00 Ty HEMATOLOGY 2016-06-29 1.6 [facility] 10:06:00 [facility] HEMATOLOGY 2016-06-29 11.4 [facility] 10:06:00 Ty HEMATOLOGY 2016-06-29 10:06:00 Test Item Value Reference Range Interpretation Comme nts MCH (test code = MCH) 28.6 pg 27.0-31.0 [facility] [id number] 10:06:37173Wwwlrmwv HermannHEMATOLOGY 2016-06-29 10:06:0014.2[facility] LltkcyrEYKCERKLHI1244-07-01 10:06:0033.9[facility] OuwzcshXSPHGMMJVT7198-04-63 10:06:008.3[facility] MlsgrceVKZSQHPDDP7994-98-37 10:06:003.11[facility] FrvmidpOPZIMIZINA1760-03-38 10:06:0012.3[facility] [id number] 10:06:0084.3[facility] [id number] 10:06:00 26.2[facility] CwreizmPZMURJIAZA2988-45-96 10:06:008.9[facility] HermannCHEM PANEL 2016-06-28 10:42:0056[facility] HermannCHEM [id number] 10:42:008.3[facility] HermannCHEM [id number] 10:42:004.5[facility] HermannCHEM [id number] 10:42:0024[facility] HermannCHEM [id number] 10:42:93939Aiqpodri HermannCHEM [id number] 10:42:68648Xpwokitn HermannCHEM [id number] 10:42:0029 [facility]annCHE[facility] VVTGU9578-91-19 10:42:05395Cqrfrnnc HermannCHEM PANEL 2016-06-28 10:42:001.30[facility]annCHEM JRLCZ2637-21-70 10:42:0012.5[facility]annCHEM ZDSFA9722-10-39 10:42:002.7[facility] SulfyekMHSLRWNJPU5225-44-06 10:42:009.0[facility] WwnysjnXZXIYCKWFD6601-84-96 10:42:0027.7[facility] Ty WDHPTDGPNT8584-04-42 10:42:0087.2[facility] PusetvfVVKOIVMBNZ1711-02-89 10:42:00 Test Item Value Reference Range Interpretation Comments MCH (test code = MCH) 28.5 pg 27.0-31.0 [facility] YybbwsbTAQQOOPDNA7804-59-45 10:42:0032.6[facility] HermannHEMATOLOGY 2016-06-28 10:42:0011.9[facility] LqbofxjVHWALYGMLO6385-49-43 10:42:003.17[facility] MaaparbNHXWJMQBPS4942-48-25 10:42:0014.6[facility] LolljqlYYFDXNHBLB4505-57-11 10:42:62770Rjrijfal NisarxaVOHVSEZHNC8571-71-03 10:42:008.6[facility] XWKCAJTIEK4908-71-35 10:42:001.5[facility] OyecvchZWJNHPNLRU9851-15-47 10:42:001.4 [facility] PazhehoZTIZUXMNYL6559-46-36 10:42:000.1[facility] HermannHEMATOLOGY 2016-06-28 10:42:0012.3[facility] ZtzbguuESIHUZWRGW9066-47-37 10:42:0011.6[facility] OtzfvskGPHCVLKMRU6300-60-99 10:42:001.1[facility] QpjekfwALQRPPIZUO5111-04-04 10:42:000.3[facility] CggiigqTXGMDMEULG6670-53-34 10:42:008.9[facility] Ty XUPWKFSXDX3448-89-69 10:42:0074.7[facility] HermannCHEM MLHAK4379-25-59 09:50:00 2.4[facility] UlvpjikJKXTYPLBDE8977-41-86 09:50:0018.6[facility]annHEMATOLOGY 2016-06-27 09:50:0014.7[facility] IwjcogfINVIXBBJGD4055-53-14 09:50:0033.1[facility] MskrgdiCPKMVCSGRO2411-29-24 09:50:0029.5[facility] RfvlaisFPJBWDKVKL1187-70-14 09:50:00 Test Item Value Reference Range Interpretation Comments MCH (test code = MCH) 28.1 pg 27.0-31.0 [facility] NikbmqzRZDXKONVQY2762-30-81 09:50:0084.7[facility]annHEMATOLOGY 2016-06-27 09:50:009.7[facility] QosmqisRJGUCKKEJA4400-18-81 09:50:37468Hvcoibua OrjvpwqXGOKTFEJFO4222-49-00 09:50:009.8[facility] BflzceaTQCDAEPDWP5129-09-62 09:50:003.48[facility] XpfwokwPQPAWKXUDH2440-79-51 09:50:002.0[facility] ZIYEKTCSHT5569-68-01 09:50:0076.1[facility] JgpsopkBLKDLQTDWV7295-10-00 09:50:00 0.1[facility] ItkmasjDXRMEEEEHT1719-84-96 09:50:0012.7[facility]annHEMATOLOGY 2016-06-27 09:50:0014.2[facility] OnohdihDSQHRMOUVX9015-55-37 09:50:000.5[facility] HwzvqtuRGCPZRFUCI1448-52-35 09:50:0010.6[facility] FkxgzntEGTTGYTFGR0481-86-08 09:50:000.1[facility] QtxlgoyRJKIFFFPPF2374-33-59 09:50:002.4[facility] HermannCHEM NJEUF9755-81-33 08:42:002.0[facility] XampqzfAIQMBMPAIT2037-88-26 08:42:000.0 [facility] PbaunzuHMRSTDQRDD4288-05-41 08:42:000.0[facility] HermannPARATHYROID KEWSJOA0010-84-55 08:42:001.11[facility] HermannPARATHYROID CNTOKFQ8613-34-86 08:42:001.11[facility] HermannSPECIAL VXQRBNHZX3085-26-70 08:42:006.4[facility] HermannCHEM PEXUO9938-99-88 07:28:001.6[facility] EoytlboYEWTBBAFYN4135-02-62 07:28:00Normal (06/25/16 2:28 AM)[facility] SfltdhyDNGPWTOVUA5191-68-89 07:28:00 Normal (06/25/16 2:28 AM)[facility] HermannPARATHYROID ARFGBHD3283-95-27 07:28:00 1.06[facility] HermannPARATHYROID VWBBPBZ7231-19-98 07:28:001.09[facility] EZGYUHYJYB4761-68-40 23:42:0034.0[facility] OjmztbnXGGVVQFWZP0459-71-59 23:42:00 11.6[facility] TeajdmaIWFXKTHEUT6584-74-69 23:42:001.09[facility]annHEMATOLOGY 2016-06-24 23:42:004.4[facility] YlochvxEZQFIUONIQ3026-90-44 23:42:26304Ozodifkb HermannCHEM ELHTS2101-71-49 23:11:001.4[facility] HermannCHEM QNJKS4807-69-88 23:11:002.1[facility] HermannCHEM QQQAD9917-85-48 23:11:000.4[facility] HermannCHEM PCJQG1184-68-25 23:11:000.2[facility] HermannCHEM DYJOW4525-56-39 23:11:000.6 [facility]annCHEM TFISW0332-66-35 23:11:0038[facility]annCHEM PANEL 2016-06-24 23:11:0042[facility] HermannCHEM ROWKR5457-66-09 23:11:0051[facility] HermannCHEM CYRBO1984-17-56 23:11:002.9[facility] HermannCHEM XDHPM6032-42-61 23:11:005.0[facility] HermannCHEM PVRAS9788-74-88 23:11:002.3[facility] THWQUCHKZR8516-27-03 23:11:25178Qtbvdpcj ZdgepdaAADRGCXYBE0241-86-66 23:11:00 Test Item Value Reference Range Interpretation Comments PTT (test code = PTT) 34.9 s 22.9-35.8 [facility] GxwnrdtKXUCLLIFTZ8312-45-54 23:11:001.27[facility]annHEMATOLOGY 2016-06-24 23:11:00 Test Item Value Reference Range Interpretation Comments PT (test code = PT) 16.2 s 12.0-14.7 [facility] HermannPARATHYROID KEKBYBJ4020-71-98 23:11:001.09[facility] PARATHYROID NPIOQBG1795-53-64 23:11:001.10[facility] NuqlawfZGNSZAXIHG6615-16-63 22:13:62833Vgmekmbw QzpgnioKBCCSOUTNR3809-68-63 22:13:00 Test Item Value Reference Range Interpretation Comments PTT (test code = PTT) 32.8 s 22.9-35.8 [facility] XtbqkzqFVKXSHGTVK2167-79-78 22:13:00 Test Item Value Reference Range Interpretation Comments PT (test code = PT) 16.6 s 12.0-14.7 [facility] TxwhdpvHQMZNAWNHK6611-44-23 22:13:001.32[facility]annBLOOD BANK LUUZYZL1466-05-87 09:15:00Negative (06/24/16 4:15 AM)[facility] HermannBLOOD BANK DPFQJCY2229-32-94 09:00:00Product available (06/24/16 4:00 AM)[facility] WGAITLT3695-75-31 09:00:00Product available (06/24/16 4:00 AM)[facility]BL[facility] SSMTORJ7526-72-52 09:00:00Product available (06/24/16 4:00 AM) [facility] KFNQTBQ3572-79-72 09:00:00Product available (06/24/16 4:00 AM)[facility] VhxksklXWRWBLPEGT4197-17-57 10:18:001.05[facility] Ty OGIQBYVGDU5425-83-77 10:18:00 Test Item Value Reference Range Interpretation Comments PTT (test code = PTT) 37.0 s 22.9-35.8 [facility] UocbtidZIFNQWMKWC6222-45-42 10:18:00 Test Item Value Reference Range Interpretation Comments PT (test code = PT) 13.9 s 12.0-14.7 [facility]BL[facility]OD BANK SGGEOKE1613-06-78 10:18:00Negative (06/20/16 5:18 AM) [facility] PokgscrZLWESTAYAH0994-53-03 10:18:00Normal (06/20/16 5:18 AM)[facility] PpnakxdMDRQQBPZHQ9683-94-12 10:18:00Normal (06/20/16 5:18 AM)[facility] MOLECULAR BJUFFTASFK8127-26-82 10:18:006.9[facility] HermannMOLECULAR DIAGNOSTIC 2016-06-20 10:18:494469192Guhdegff HermannBLOOD BANK LBOWTDW1555-95-87 10:00:00 Product available (06/20/16 5:00 AM)[facility]annBL[facility] B[facility] FLCZAJC6062-46-53 10:00:00Product available (06/20/16 5:00 AM)[facility]BL[facility] B[facility] RESULTS 2016-06-20 10:00:00Product available (06/20/16 5:00 AM)[facility] DLOILVO4443-10-76 10:00:00Product available (06/20/16 5:00 AM)[facility] BACTERIAL - BCFDFHIV7975-32-18 10:33:00Negative (06/18/16 5:33 AM)[facility] HermannCHEM LOSQN7283-38-17 10:33:0018[facility] HermannCHEM XDAOW9252-25-16 10:33:003.9[facility] HermannCHEM TENZO6351-73-98 10:33:000.8[facility] HermannCHEM UOMQK6090-58-55 10:33:0067[facility] HermannCHEM YMNKI0826-51-73 10:33:0074 [facility]annCHEM CCRIV0853-88-33 10:33:007.1[facility] HermannCHEM PANEL 2016-06-18 10:33:003.2[facility] HermannCHEM YVVWE6460-96-89 10:33:0058[facility] HermannCHEM UYYDR2519-87-61 10:33:000.4[facility] UavevllXPPUPH3077-25-19 10:33:00 4.04[facility] VnmcrcuWULCGA5483-15-07 10:33:0016[facility] EqjgckrBELSXS5891-21-66 10:33:90649Kszgutjy VaryvxgPLAFBG7262-57-45 10:33:0045[facility] HermannLIPIDS 2016-06-18 10:33:0082[facility] BitnfruGPQXRV9762-52-67 10:33:75142Pdgkvtml HermannSPECIAL EVZMJSKNV3455-49-79 10:33:006.4[facility] HermannURINE AND STOOL 2016-06-18 10:33:00<=1.0[facility]annURINE AND VJTKE2603-97-64 10:33:00 <1[facility]annURINE AND JKRRR3251-12-15 10:33:00Negative *NA*(06/18/16 5:33 AM)[facility]annUR[facility] AND LQMBN3659-48-48 10:33:00<1[facility] Ty URINE AND TPDNS9251-10-64 10:33:00Negative (06/18/16 5:33 AM)[facility] URINE AND QRDNE1665-52-07 10:33:00Negative (06/18/16 5:33 AM)[facility] URINE AND VHKFG9452-79-59 10:33:00Negative (06/18/16 5:33 AM)[facility] URINE AND JYLOB3602-90-89 10:33:00Light Yellow *NA*(06/18/16 5:33 AM)[facility]annUR[facility] AND UUBRO8894-54-89 10:33:00Clear (06/18/16 5:33 AM)[facility] URINE AND ZKAWB3020-42-91 10:33:005.0[facility]annURINE AND LZBHS6404-60-24 10:33:001.008[facility]annUR[facility] AND ZNPWO8229-40-67 04:28:00Clear (06/17/16 11:28 PM)[facility] AND TGSMZ4134-64-25 04:28:006.0[facility] URINE AND QXFHV3599-58-90 04:28:00Light Yellow *NA*(06/17/16 11:28 PM)[facility]annUR[facility] AND XELHR2356-89-75 04:28:001.010[facility]annURINE AND STOOL 2016-06-18 04:28:001[facility]annUR[facility] AND BIWAY0027-31-04 04:28:00<=1.0 [facility] OEABB2351-06-04 04:28:00Negative (06/17/16 11:28 PM) [facility] UZZIS3399-56-68 04:28:00Negative (06/17/16 11:28 PM) [facility] SBOXK6359-73-63 04:28:00Negative (06/17/16 11:28 PM) [facility] AND YWNRR1856-47-28 04:28:00Negative *NA*(06/17/16 11:28 PM)[facility] MfvjvaaXUUDVF4371-05-93 09:20:004.26[facility] JaetujnIDPCFL6085-52-11 09:20:0022[facility] VxsjgfvMICVYA5460-26-40 09:20:99294Fkrbrvns HermannLIPIDS 2016-06-16 09:20:0043[facility] RljdotkRLGGGZ5148-27-59 09:20:34233Jmgbaqtq PysfhpfKHGZJW4282-20-91 09:20:49679Edhtctiw HermannCARDIAC MRXDWXO0282-03-43 00:19:89048Tunflgjc HermannCARDIAC XKYBSCD4319-95-43 00:19:007.44[facility] HermannCARDIAC AEFRBDF0737-90-11 00:19:004.4[facility] HermannCARDIAC ENZYMES 2016-06-16 00:19:0017.0[facility] HermannCARDIAC UFUSETX6206-08-56 19:58:004.8 [facility] HermannCARDIAC SUUOSAS7010-23-14 19:58:18505Moxdbuce HermannCARDIAC LCCDXPD2822-77-79 19:58:0019.8[facility] HermannCARDIAC PSZXHYI4954-00-74 19:56:00 6.52[facility] HermannCHEM YUYPP7835-46-47 19:56:003.7[facility] HermannCHEM PANEL 2016-06-15 19:56:000.9[facility] HermannCHEM YNKUY4674-54-36 19:56:0019[facility] HermannCHEM BSCMR7660-89-38 19:56:000.5[facility] HermannCHEM MTZAR8565-30-46 19:56:003.3[facility] HermannCHEM TKCRL6040-64-94 19:56:007.0[facility] HermannCHEM LJQRE7715-05-68 19:56:0068[facility] HermannCHEM SIXKN5791-72-44 19:56:0051 [facility] HermannCHEM GZUBQ0514-37-88 19:56:0044[facility] HermannDRUG SCREEN 2016-06-15 19:56:00Negative *NA*(06/15/16 2:56 [...] HermannIMMUNOLOGY 2016-06-15 19:56:00Negative *NA*(06/15/16 2:56 PM)[facility] HermannSPECIAL WHIXLMUZY7824-13-66 19:56:006.6[facility]annURINE AND HPPXH7713-31-65 19:56:00 Test Item Value Reference Range Interpretation Comments UA pH (test code = UA pH) 5.5 1 5.0-8.0 [facility]UR[facility] AND VJSWO4230-15-02 19:56:00 Test Item Value Reference Range Interpretation Comments UA Spec Grav (test code = UA Spec 1.020 1 Grav) [facility]UR[facility] AND UTBIA2387-70-35 19:56:00Negative (06/15/16 2:56 PM) [facility] AND TSUUH4527-75-20 19:56:00Clear (06/15/16 2:56 PM) [facility] AND JMSWV9294-89-55 19:56:00Negative (06/15/16 2:56 PM) [facility] TONID1881-10-18 19:56:00Not Indicated (06/15/16 2:56 PM)[facility] AND TAXNZ3221-31-74 19:56:00Negative (06/15/16 2:56 PM) [facility] AND SQRON8272-02-85 19:56:00Negative *NA*(06/15/16 2:56 PM) [facility] AND AAANF2811-37-16 19:56:00Negative *NA*(06/15/16 2:56 PM) [facility]UR[facility] AND GTDUG8530-53-65 19:56:00Negative (06/15/16 2:56 PM) [facility]UR[facility] AND EMGJV0402-19-63 19:56:00Negative (06/15/16 2:56 PM) [facility]UR[facility] AND XRNIO1159-27-00 19:56:000.2[facility]annURINE AND XLPNC7393-41-64 19:56:00Yellow *NA*(06/15/16 2:56 PM)[facility]
[2020-09-01] MEDS ORDERED: NA CHLORIDE 0.9% 1,000 ML ONE ×2 (17:36→18:40)
[2020-09-01 17:38] LABS: Absolute Lymphocytes (CBC) 1.3 K/uL (0.7-4.9); Basophils % 0.6 % (0-1.3); Hematocrit 35.3 % (39.6-49.0); Lymphocytes % 19.7 % (15.3-44.8); MPV 7.6 fL (7.6-11.3); RBC Red Blood Cell Count 4.13 M/uL (4.33-5.43)
[2020-09-01 17:51] LABS: Potassium 4.3 mmol/L (3.5-5.1)
[2020-09-01] MEDS ORDERED: FENTANYL CITR 100 MCG/2 ML ONE (18:10)
--- NOTE | 2020-09-01 18:32 | ER ---
Nurse's Notes [facility] Name: Valerio Berg Age: 69 yrs Sex: Male : 1950 Arrival Date: 09/01/2020 Time: 16:02 Bed 13 Private MD: Chapo Veliz C Diagnosis: Localized swelling, mass and lump, neck;Dehydration Presentation: 09/01 16:11 Chief complaint: Patient states: Swelling to L side of neck, seen in ED for same ph complaint Monday, reports that swelling has not improved and started having pain today. Pt drowsy in triage, appears to be falling asleep. Coronavirus screen: Client denies travel out of the [place] in the last 14 days. At this time, the client does not indicate any symptoms associated with coronavirus-19. Ebola Screen: No symptoms or risks identified at this time. Initial Sepsis Screen: Does the patient meet any 2 criteria? No. Patient's initial sepsis screen is negative. Does the patient have a suspected source of infection? No. Patient's initial sepsis screen is negative. Risk Assessment: Do you want to hurt yourself or someone else? Patient reports no desire to harm self or others. 16:11 Method Of Arrival: Ambulatory ph 16:11 Acuity: ADRIÁN 3 ph Triage Assessment: 16:15 General: Appears in no apparent distress. uncomfortable, Behavior is calm, cooperative, bp appropriate for age. Pain: Complains of pain in neck. EENT: No deficits noted. Neuro: No deficits noted. Cardiovascular: No deficits noted. Respiratory: No deficits noted. GI: No signs and/or symptoms were reported involving the gastrointestinal system. : No signs and/or symptoms were reported regarding the genitourinary system. Derm: No deficits noted. Musculoskeletal: No deficits noted. Historical: - Allergies: 16:13 Betadine; ph 16:13 Povidone-Iodine; ph - PMHx: 16:13 Borderline Diabetes; COPD; Hypothyroidism; Myocardial infarction; ph - PSHx: 16:13 cardiac stent; ph - Family history:: not pertinent. - Hospitalizations: : No recent hospitalization is reported. Screenin:15 Abuse screen: Denies threats or abuse. Denies injuries from another. Nutritional bp screening: No deficits noted. Tuberculosis screening: No symptoms or risk factors identified. Fall Risk None identified. Assessment: 16:15 General: SEE TRIAGE NOTE. bp 18:00 Reassessment: No changes from previously documented assessment. Patient and/or family bp updated on plan of care and expected duration. Pain level reassessed. Patient is alert, oriented x 3, equal unlabored respirations, skin warm/dry/pink. Neuro: Level of Consciousness is obeys commands, lethargic, Oriented to Appropriate for age. 18:41 Reassessment: D/C ON HOLD FOR IVF COMPLETION. bp Vital Signs: 16:11 BP 88 / 58; Pulse 63; Resp 14; Temp 98.6; Pulse Ox 100% on R/A; Weight 95.25 kg; Height ph 5 ft. 10 in. (177.80 cm); 16:54 BP 103 / 47 LA Sitting; Pulse 58; Resp 16; Pulse Ox 97% on R/A; dh3 18:00 BP 122 / 44; Pulse 63; Resp 17; Pulse Ox 98% ; bp 18:41 BP 107 / 59; Pulse 64; Resp 16; Pulse Ox 100% ; bp 16:11 Body Mass Index 30.13 (95.25 kg, 177.80 cm) ph ED Course: 16:02 Patient arrived in ED. hh 16:02 Chapo Veliz MD is Private Physician. hh 16:13 Triage completed. ph 16:13 Arm band placed on. ph 16:15 Patient has correct armband on for positive identification. Bed in low position. Call bp light in reach. Side rails up X2. 16:18 Avila Mc, APURVA is Primary Nurse. bp 16:42 Asa Cordoba MD is Attending Physician. rn 17:05 Inserted saline lock: 22 gauge in right antecubital area, using aseptic technique. bp Blood collected. 17:08 Basic Metabolic Panel Sent. bp 17:08 CBC with Diff Sent. bp 18:31 Chapo Veliz MD is Referral Physician. rn 19:51 IV discontinued. ak2 Administered Medications: 17:15 Drug: NS 0.9% 1000 ml Route: IV; Rate: 1000 ml; Site: right antecubital; bp 17:45 Drug: fentaNYL (PF) 25 mcg Route: IVP; Site: right antecubital; bp 18:18 Follow up: Response: Pain is decreased bp 18:20 Drug: NS 0.9% 1000 ml Route: IV; Rate: 1000 ml; Site: right antecubital; bp Outcome: 18:31 Discharge ordered by . rn 19:52 Discharged to home ambulatory. ak2 19:52 Condition: good 19:52 Discharge instructions given to patient, family. 20:03 Patient left the ED. Signatures: Asa Cordoba MD MD rn Smirch, Shelby, RN RN Mariam Zarco RN RN Juanita Rondon [facility] Avila Mc RN RN Mich Romero pa2 Melanie Andres Corrections: (The following items were deleted from the chart) 16:14 16:11 Chief complaint: Patient states: Swelling to L side of neck, seen in ED for same ph complaint Monday, reports that swelling has not improved and started having pain today. Pt drowsy in triage ph 16:14 16:11 Pulse 63bpm; Resp 14bpm; Pulse Ox 100% RA; Temp 98.6F; 95.25 kg; Height 5 ft. 10 ph in.; BMI: 30.1; ph 16:14 16:11 Acuity: ADRIÁN 4 ph ph
--- NOTE | 2020-09-01 18:32 | EDPHYS ---
Physician Documentation [facility] Name: Valerio Berg Age: 69 yrs Sex: Male : 1950 Arrival Date: 09/01/2020 Time: 16:02 Bed 13 Private MD: Chapo Veliz C ED Physician Asa Cordoba HPI: 09/01 17:02 This 69 yrs old Black Male presents to ER via Ambulatory with complaints of Neck rn Swelling - pain. 17:02 The patient or guardian complains of pain. The symptoms are located left neck. Onset: rn The symptoms/episode began/occurred at an unknown time. Associated signs and symptoms: Pertinent negatives: fever, bladder incontinence, bowel incontinence, numbness, tingling, vomiting, weakness. The pain does not radiate. Modifying factors: The symptoms are alleviated by the symptoms are aggravated by movement, pressure. Severity of symptoms: At their worst the symptoms were moderate, in the emergency department the symptoms are unchanged. The patient has not experienced similar symptoms in the past. The patient has been recently seen at the [facility] Emergency Department. Reports seen here recently for this problem of neck swelling, CT scans obtained, shows likely malignancy, followed up with Dr. Veliz who is connecting him with MD Barrientos for further evaluation and treatment. No gross changes, states came here because tramadol at home not taking the pain away. No fever, no new symptoms, no vomiting/diarrhea/chest pain/sob. No difficulty swallowing. Pt states here for pain control.. Historical: - Allergies: 16:13 Betadine; ph 16:13 Povidone-Iodine; ph - PMHx: 16:13 Borderline Diabetes; COPD; Hypothyroidism; Myocardial infarction; ph - PSHx: 16:13 cardiac stent; ph - Family history:: not pertinent. - Hospitalizations: : No recent hospitalization is reported. ROS: 17:02 Constitutional: Negative for fever, chills, and weight loss, Eyes: Negative for injury, rn pain, redness, and discharge, Neck: + neck pain and swelling Cardiovascular: Negative for chest pain, palpitations, and edema, Respiratory: Negative for shortness of breath, cough, wheezing, and pleuritic chest pain, Abdomen/GI: Negative for abdominal pain, nausea, vomiting, diarrhea, and constipation, Back: Negative for injury and pain, MS/Extremity: Negative for injury and deformity, Skin: Negative for injury, rash, and discoloration, Neuro: Negative for headache, numbness, tingling, and seizure. Exam: 17:02 Constitutional: This is a well developed, well nourished patient who is awake, alert, rn seems sleepy, but easily arousable, states hasn't slept since yesterday. Head/Face: Normocephalic, atraumatic. Eyes: Periorbital areas with no swelling, redness, or edema. ENT: Dry MM Neck: + left neck swelling and mass, no fluctuance. Cardiovascular: Regular rate and rhythm. No pulse deficits. Respiratory: No increased work of breathing, no retractions or nasal flaring. Abdomen/GI: Soft, non-tender Skin: Warm, dry MS/ Extremity: Pulses equal, no cyanosis. Neuro: Awake, alert, GCS 15, 4/5 strength throughout, sensation grossly intact. Vital Signs: 16:11 BP 88 / 58; Pulse 63; Resp 14; Temp 98.6; Pulse Ox 100% on R/A; Weight 95.25 kg; Height ph 5 ft. 10 in. (177.80 cm); 16:54 BP 103 / 47 LA Sitting; Pulse 58; Resp 16; Pulse Ox 97% on R/A; dh3 18:00 BP 122 / 44; Pulse 63; Resp 17; Pulse Ox 98% ; bp 18:41 BP 107 / 59; Pulse 64; Resp 16; Pulse Ox 100% ; bp 16:11 Body Mass Index 30.13 (95.25 kg, 177.80 cm) ph MDM: 16:42 Patient medically screened. rn 18:28 Differential diagnosis: malignancy, dehydration. Data reviewed: vital signs, nurses rn notes, old medical records, lab test result(s), radiologic studies, CT scan, and as a result, I will discharge patient. Counseling: I had a detailed discussion with the patient and/or guardian regarding: the historical points, exam findings, and any diagnostic results supporting the discharge/admit diagnosis, lab results, radiology results, the need for outpatient follow up, to return to the emergency department if symptoms worsen or persist or if there are any questions or concerns that arise at home. Response to treatment: the patient's symptoms have mildly improved after treatment, and as a result, I will discharge patient. Special discussion: I discussed with the patient/guardian in detail that at this point there is no indication for admission to the hospital. It is understood, however, that if the symptoms persist or worsen the patient needs to return immediately for re-evaluation. 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 . 18:32 ED course: Pt already with prescription for pain medication at home, feels better after rn fentanyl. . 09/01 16:43 Order name: CBC with Diff rn 09/01 16:43 Order name: Basic Metabolic Panel rn 09/01 16:43 Order name: LDH; Complete Time: 18:06 rn 09/01 16:44 Order name: CBC with Automated Diff EDMS 09/01 16:44 Order name: Basic Metabolic Panel; Complete Time: 18:06 EDMS 09/01 18:56 Order name: CBC Smear Scan EDMS Administered Medications: 17:15 Drug: NS 0.9% 1000 ml Route: IV; Rate: 1000 ml; Site: right antecubital; bp 17:45 Drug: fentaNYL (PF) 25 mcg Route: IVP; Site: right antecubital; bp 18:18 Follow up: Response: Pain is decreased bp 18:20 Drug: NS 0.9% 1000 ml Route: IV; Rate: 1000 ml; Site: right antecubital; bp Disposition: 09/01/20 18:31 Discharged to Home. Impression: Localized swelling, mass and lump, neck, Dehydration. - Condition is Stable. - Discharge Instructions: Dehydration, Adult. - Medication Reconciliation Form, Thank You Letter, Antibiotic Education, Prescription Opioid Use form. - Follow up: Chapo Veliz MD; When: As needed; Reason: Recheck today's complaints, Re-evaluation by your physician. - Problem is an ongoing problem. - Symptoms have improved. Signatures: Dispatcher [employer] EDMS Asa Cordoba MD MD rn Smirch, Shelby, RN RN ss Hall, Patricia, RN RN ph Peltier, Brian, RN RN bp Corrections: (The following items were deleted from the chart) 17:06 17:02 Reports seen here recently for this problem of neck swelling, CT scans obtained, rn shows likely malignancy, followed up with Dr. Veliz who is connecting him with MD Barrientos for further evaluation and treatment. No gross changes, states came here because tramadol at home not taking the pain away. No fever, no new symptoms, no vomiting/diarrhea/chest pain/sob. No difficulty swallowing.. rn 20:03 18:31 09/01/2020 18:31 Discharged to Home. Impression: Localized swelling, mass and ss lump, neck; Dehydration. Condition is Stable. Forms are Medication Reconciliation Form, Thank You Letter, Antibiotic Education, Prescription Opioid Use. Follow up: A Veliz; When: As needed; Reason: Recheck today's complaints, Re-evaluation by your physician. Problem is an ongoing problem. Symptoms have improved. rn
[2020-09-01 18:56] LABS: Blood Morphology Comment NOT SEEN (NOT SEEN); Platelet Estimate ADEQ; White Blood Cell Scan OK (OK)
[2020-09-01 20:23] VITALS: TEMP 98.6
[2020-09-01 20:28] VITALS: BP 107/59; O2SAT 100
== END 2020-09-01 20:03 | disposition home or self-care (01) ==
LOC: ER 15:59
DX: E86.0 Dehydration (principal); M54.2 Cervicalgia; Z95.818 Presence of other cardiac implants and grafts; Z88.8 Allergy status to other drugs, medicaments and biological substances
CPT/HCPCS: 85025; 80048; 36415; 83615; J3010; J7030 ×2; 96374; 99284

== ENCOUNTER 2020-09-28 18:01 | Emergency (ER) | payer OTHER ==
--- OUTSIDE RECORDS SUMMARY | 2020-09-28 18:44 | XMS REPORT | Continuity of Care Document ---
:1950 Author Organization [facility] t Address [address] [place] [address] Care Team Providers Name Role Phone [phone] Primary Care Physician Unavailable KEIKO Attending Clinician Unavailable SYSTEM, NOT IN Attending Clinician Unavailable Bryan RN, L Attending Clinician Unavailable Darrell JIMENEZ M Attending Clinician Milton LOVE Attending Clinician HAYDEN Attending Clinician Unavailable Hayden LOVE PhD Attending Clinician Sarah LOVE Attending Clinician CEM Attending Clinician Unavailable Cem BLANKENSHIP Attending Clinician SARAH Attending Clinician Unavailable BETH Attending Clinician Unavailable Tony Angulo Attending Clinician Aimee Alfaro MD Attending Clinician Aimee ALFARO JR Attending Clinician Unavailable TONY MAYS Attending Clinician Unavailable Aparna Moreno Attending Clinician BRIAN ARRIOLA Attending Clinician Unavailable Brian Arriola MD Attending Clinician Jennifer JIMENEZ Attending Clinician Linda Mendez MD Attending Clinician LINDA MENDEZ Attending Clinician Unavailable Margaret LOVE Attending Clinician Viola Ching PT Attending Clinician CARLOTA Attending Clinician Unavailable Carlota MIXON Attending Clinician Unavailable Only, Test Attending Clinician Unavailable Willy BARRIOS Attending Clinician Ana Benedict Attending Clinician PISIMISIS Admitting Clinician Unavailable AHMED Admitting Clinician Unavailable Ana Benedict Admitting Clinician Payers Payer Name Policy Type Policy Effective Date Expiration Date Sour ce Number HUMANA CHOICE [id number] 2020 MEDICARE PPO 00:00:00 HUMANA - MEDICARE [id number] 2020 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 00 Mass of Mass of Disease Active neck neck 09-07 Anderso 00:00: n 00 History of History of Disease Active M D myocardial myocardial 09-07 An derso infarction infarction 00:00: n 00 History of History of Disease Active 2021-0 M D placement placement 09-07 Jay rso of stent of stent 00:00: n for for 00 coronary coronary artery artery disease disease NSTEMI Diagnosis Active 2016-06-15 Mem oria 06-15 11:09:00 l NSTEMI 00:00: Taft 00 Active 06/15/2016 [facility] ACUTE Diagnosis Active 2016-07-19 Mem oria CHEST PAIN 06-15 21:59:00 l ACUTE 00:00: Taft CHEST PAIN 00 Active 06/15/2016 [facility] CHEST Diagnosis Active 2016-07-19 Mem oria PAIN, 21:59:00 l UNSPECIFIE CHEST Soumya nn D PAIN, UNSPECIFIE D Active [facility] Hepatitis Hepatitis Disease Active 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 Jay rso n History of History of Disease Active M Robert hepatitis hepatitis Jay rso C C n Long-term Long-term Disease Active current current Anderso use of use of n rituximab rituximab Patient Patient Disease Active immunocomp immunocomp An derso romised romised n Acute Acute Disease Active injury of injury of Jay rso kidney kidney n Hyperurice Hyperurice Disease Active M D damien damien Anderso n 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 Metastasis Metastasis Disease Resolve 2020-09-16 2020-09-16 to lymph to lymph d 6 00:00:00 21:46:22 An derso node from node from 00:00: n 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 Mild Problem Resolve 2018-08-06 2018-08-06 Memoria chronic d 03-27 13:34:33 13:34:33 l obstructiv Mild 00:00: Rafat n e chronic 00 pulmonary obstructiv disease e (disorder) pulmonary disease (disorder) Resolved 03/27/2012 Problem 08/06/2018 [facility] Allergies, Adverse Reactions, Alerts Allergy Allergy Status Severity Reaction(s) Onset Inactive Treating Comm ents Source Name Type Date Date Clinician Betadine Betadine Active Mo Crawford Social History Social Habit Start Date Stop Date Quantity Comments Source History of tobacco Cigarette Smoker MD Barrientos use Exposure to Not sure MD Barrientos SARS-CoV-2 (event) History SDOH [facility] - Alcohol Std Drinks [facility] History SDOH [facility] - Alcohol Binge Medical Jose ter Cigarettes smoked 2020-09-22 2020-09-22 MD [facility] current (pack per 00:00:00 00:00:00 day) - Reported Cigarette 2020-09-22 2020-09-22 MD Barrientos pack-years 00:00:00 00:00:00 Tobacco use and 2020-09-22 2020-09-22 Never used MD Sutton on exposure 00:00:00 00:00:00 Alcohol intake 2020-09-22 2020-09-22 Ex-drinker MD Camryn archuleta 00:00:00 00:00:00 (finding) Tobacco Comment 2020-09-07 2020-09-07 stopped smoking MD Chapo fine 00:00:00 00:00:00 15 years ago History SDOH 2020-09-07 2020-09-[address] [facility] - Alcohol Frequency 00:00:00 00:00:00 [facility] Sex Assigned At [birth year] MD Sutton on 00:00:00 00:00:00 Smoking Status Start Date Stop Date Source Former smoker 2020-09-22 00:00:00 2020-09-22 00:00:00 MD Harden son Never smoker [facility] Medications Ordered Filled Start Stop Current Ordering Indication Dosage Frequency Signature Comments Components Source Medication Medication Date Date Medication? Clinician (SIG) Name Name brunilda Yes 1{tbl} Take 1 MD ate 09-23 tablet by Camryn (sennosides 22:54: mouth n -docusate 05 twice sodium) 8.6 daily. mg-50 mg Hold for tablet loose stools. predniSONE Diffuse 100mg Take 2 MD (DELTASONE) 09-23 high grade tablets Anderso 50 mg 00:00: 00:00 B-cell (100 mg) n tablet 00 :00 lymphoma by mouth daily for 1 dose. On 09/23 entecavir Yes Hepatitis B .5mg Take 1 MD (BARACLUDE) 09-22 carrier tablet And erso 0.5 mg 00:00: (0.5 mg) n tablet 00 by mouth daily. sacubitriL- Yes History of 1{tbl} Take 1 MD valsartan 6-28 myocardial tablet by Anderso (ENTRESTO) 00:00: infarction mouth n 24 mg-26 mg 00 every 12 tab per (twelve) tablet hours. Hold for systolic blood pressure less than 110mmHg. sodium Yes Diffuse 10mL Swish and MD chloride-so - high grade spit 10 mL Anderso dium 00:00: B-cell every 6 n bicarbonate 00 lymphoma (six) (SALT AND hours. SODA) Use 2 mouthwash teaspoonfu ls and dissolve in 1 quart (960 mL) of warm water. To prevent mouth sores ondansetron Yes Diffuse 8mg Take 1 M D (Zofran) 8 6-28 high grade tablet (8 Anderso mg tablet 00:00: B-cell mg) by n 00 lymphoma mouth every 8 (eight) hours as needed for nausea or vomiting (first choice). prochlorper Yes Diffuse 5mg Take 1 M D azine 6-28 high grade tablet (5 And erso (Compazine) 00:00: B-cell mg) by n 5 mg tablet 00 lymphoma mouth every 6 (six) hours as needed for nausea or vomiting. carvedilol Yes History of 3.125mg Take 1 MD (COREG) 6-28 myocardial tablet Jay rso 3.125 mg 00:00: infarction (3.125 mg) n tablet 00 by mouth twice daily. Hold for systolic blood pressure less than 110 mmHg or heart rate less than 60 bpm furosemide Yes History of 40mg Take 1 MD (LASIX) 40 6-28 myocardial tablet (40 Anderso mg tablet 00:00: infarction mg) by n 00 mouth twice daily. Hold for systolic blood pressure less than 110 mmHg valACYclovi Yes Diffuse 500mg Take 1 MD r (VALTREX) 6-28 high grade tablet Anderso 500 mg 00:00: B-cell (500 mg) n tablet 00 lymphoma by mouth daily. To prevent viral infections . senna-docus 2020-0 202- No Diffuse 1{tbl} Take 1 MD ate 6-28 06-28 high grade tablet by And erso (SENOKOT-S) 00:00: 00:00 B-cell mouth 2 n 8.6 mg-50 00 :00 lymphoma (two) mg tablet times a day as needed for constipati on. Hold for loose stools. predniSONE Yes Lymphoma 50mg Take 1 M D (DELTASONE) 6-23 extent of tablet (50 Anderso 50 mg 00:00: involvement mg) by n tablet 00 not mouth specified today 09/16/20. Starting on the day of chemothera py take 2 tablets (100 mg) every day for 5 days. traMADoL Yes 50mg Take [address] [facility] [address] (ULTRAM) 50 6-14 by mouth Luke s - mg tablet 14:12: every 6 Medic al 04 (six) Center hours as needed for Pain. sacubitriL- Yes 1{tbl} Q.5D Take [address] valsartan 6-14 tablet [facility] - (Entresto) 14:12: mouth 2 Medi michael 24-26 mg 04 (two) Center Tab times daily. traMADol Yes TAKE 1 MD (ULTRAM) 50 6-09 TABLET BY And erso mg tablet 00:00: MOUTH n 00 THREE TIMES DAILY NEEDED FOR PAIN Entresto 2020- No TAKE 1 MD 49-51 mg 6- 06-30 TABLET BY Dereck so tab per 00:00: 00:00 MOUTH n tablet 00 :00 TWICE DAILY amoxicillin 2020- No TAKE 1 MD -clavulanat 6- 06-23 TABLET BY An nahomyso e 00:00: 00:00 MOUTH n (AUGMENTIN) 00 :00 TWICE 500 mg-125 DAILY WITH mg per FOOD tablet furosemide 2020- No TAKE 1 MD (LASIX) 80 -12 09-28 TABLET BY And erso mg tablet 00:00: 00:00 MOUTH n 00 :00 TWICE DAILY carvedilol 2020- No TAKE 1 MD (COREG) 5-12 09-28 TABLET BY Herman o 6.25 mg 00:00: 00:00 MOUTH n tablet 00 :00 TWICE DAILY WITH FOOD montelukast Yes TAKE 1 MD (SINGULAIR) 4-23 TABLET BY And erso 10 mg 00:00: MOUTH n tablet 00 DAILY potassium Yes 10meq Take 10 MD chloride 4-23 mEq by Anderso (MICRO-K) 00:00: mouth n 10 mEq CR 00 daily. capsule Hold for serum potassium greater than 4.5 mEq/L clopidogrel Yes TAKE 1 MD (PLAVIX) 75 4-23 TABLET BY And erso mg tablet 00:00: MOUTH n 00 DAILY tamsulosin 2020- No TAKE 1 MD (FLOMAX) 4-23 06-23 CAPSULE BY Jay rso 0.4 mg 24 00:00: 00:00 MOUTH n hr capsule 00 :00 EVERY DAY atorvastati Yes TAKE 1 MD n (LIPITOR) 4-13 TABLET BY And erso 80 mg 00:00: MOUTH n tablet 00 DAILY AT BEDTIME levothyroxi Yes TAKE 1 MD ne 4-08 TABLET BY Anderso (SYNTHROID, 00:00: MOUTH n LEVOTHROID) 00 DAILY 25 mcg tablet Tradjenta 5 Yes 5mg Take 5 mg M D mg tab 4-08 by mouth Anderso 00:00: daily. n 00 rOPINIRole Yes 1mg Take 1 mg MD (REQUIP) 1 3-24 by mouth 2 And erso mg tablet 00:00: (two) n 00 times a day as needed (restless legs). torsemide 2020- No TAKE 1 MD (DEMADEX) 3-14 -23 TABLET BY Jay rso 20 mg 00:00: 00:00 MOUTH n tablet 00 :00 TWICE DAILY aspirin 81 Yes 81mg Take 81 mg M D mg EC 2-01 by mouth Anderso tablet 00:00: daily. n 00 metoprolol 2020- No TAKE 1 MD succinate 1-30 06-23 TABLET BY Jay rso (TOPROL XL) 00:00: 00:00 MOUTH n 25 mg 24 hr 00 :00 DAILY tablet pantoprazol 2019-03 Yes 40mg Take 40 mg MD e 1-04 by mouth Anderso (PROTONIX) 00:00: daily with n 40 mg EC 00 breakfast. tablet predniSONE 2020- No TK 2 TS PO MD (DELTASONE) 8-12 06-23 QD FOR 3 And erso 10 mg 00:00: 00:00 DAYS THEN n tablet 00 :00 TK 1 T PO D levocetiriz Yes 5mg Take 5 mg M D ine (XYZAL) 7-16 by mouth Jay rso 5 MG tablet 00:00: every n 00 evening. albuterol Yes 1{puff} Inhale 1-2 MD (VENTOLIN 7-11 puffs by Herman o HFA,PROAIR 00:00: mouth n HFA) 90 00 every 6 mcg/puff (six) inhaler hours as needed for wheezing or shortness of breath. dicyclomine 2020- No TAKE 1 T M D (BENTYL) 20 10-04- PO Q 6 H And erso mg tablet 00:00: 00:00 PRN n 00 :00 benzonatate 2020- No TAKE 2 C M D (TESSALON) 10-04 PO Q 8 H Jay rso 100 mg 00:00: 00:00 PRF COUGH n capsule 00 :00 AND CONGESTION lisinopril Yes 2.5 mg = 1 M emoria 2.5 mg oral 4-06 tab, PO, l tablet 13:46: Daily, # Taft 00 30 tab, 0 Refill(s) AMIODarone Yes [...] INHALATION l 0.09 13:46: , QID, PRN Taft MG/ACTUAT 00 for Metered wheezing, Dose # [...] tab, PO, l tablet 13:46: Daily, # Taft 00 30 tab, 0 Refill(s) atorvastati Yes 40 mg = 1 M emoria n 40 mg 4-06 tab, PO, l oral tablet 13:46: Bedtime, # Ty 00 30 tab, 0 Refill(s) aspirin 81 [...] 0 Refill(s) Amiodarone No Notes: Memor ia 4-06 (Same as: l 12:15: Cordarone) torsemide No Notes: Memori a 4-05 (Same As: l 14:00: Demadex) Amiodarone No Notes: Memor ia 4-04 (Same as: l 14:06: Cordarone) metoprolol No Notes: Memor ia extended 4- (Same as: l release 14:00: Toprol XL) Herm Do Not Crush atorvastati No Notes: Danilo jerry n 4- (Same as: l 02:00: Lipitor) chlorhexidi No Notes: Danilo jerry ne 4-03 (Same As: l gluconate 14:00: Hibiclens) He rmann 40 MG/ML 00 Medicated Liquid Soap Glucagon No 1 mg, Memoria 06-26 Route: IM, l 15:21: Drug form: Ty 00 PDR/INJ, PRN, Dosing Weight 103.653, kg, PRN Blood Glucose Results, Start date: 06/26/16 10:21:00 CDT, Duration: 30 day, Stop date: 07/26/16 10:20:00 CDT Dextrose No 25 gm, 50 Danilo jerry 50% Syringe 06-26 mL, Route: l 15:21: IVP, Drug Form: INJ, Dosing Weight 103.653, kg, PRN, PRN Blood Glucose Results, Start date: 06/26/16 10:21:00 CDT, Duration: 30 day, Stop date: 07/26/16 10:20:00 CDT Insulin, No Notes: Memoria Aspart, 06-26 Roll in l Human 15:21: palms of Ty 00 hands gently; Do not shake vigorously . (Same as: NovoLOG) "single patient use only" WASTE: F/P - Black; E - Municipal Trash Bin Stable for 28 days at room temperatur e. Expires in days from ____Date Lasix No Notes: Memoria 06-26 (Same as: l 12:30: Lasix) Taft 00 albumin No Notes: Memoria human 5% 06-26 LOT#: l intravenous 12:30: Ty solution ___ Mfg: WASTE: F/P - Red; E -Red (Same as: Albuminar) "blood product derivative " glucagon No 1 mg, Memoria 06-26 Route: l 03:17: INJ, Drug Taft 00 form: PDR/INJ, PRN, PRN Blood Glucose Results, Start date: 06/25/16 22:17:00 CDT, Duration: 30 day, Stop date: 07/25/16 22:16:00 CDT Dextrose No 50 mL, Memoria 50% in 06-26 Route: l Water IV 03:17: IVP, Start Her cazares 00 date: 06/25/16 22:17:00 CDT, Duration: 30 day, [...] n 06-26 (Same As: l 02:00: Lipitor) Taft Lovenox No Notes: Memoria 06-26 (Same as: l 01:00: Lovenox) Dilaudid No 0.5 mg, Memori a 06-25 0.5 mL, l 23:54: Route: Taft 00 IVP, Drug form: INJ, ONCE, Dosing Weight 103.653, kg, Priority: STAT, Start date: 06/25/16 18:54:00 CDT, Stop date: 06/25/16 18:54:00 CDT pantoprazol No Notes: Danilo jerry e - Tablet l 14:00: should not Taft 00 be chewed or crushed. (Same as: Protonix) Mupirocin No 1 appl, Memor ia 0.02 MG/MG 06-25 Route: l Topical 14:00: NASAL, Ty Ointment 00 BID, Drug form: OINT, Start date: 06/25/16 9:00:00 CDT, Duration: 5 day, Stop date: 06/29/16 17:00:00 CDT clopidogrel No Notes: Danilo jerry 06-25 (Same As: l 14:00: Plavix) Ty Aspirin 325 No 325 mg, Mem oria MG Enteric 06-25 Route: PO, l Coated 14:00: Drug form: Soumya nn Tablet 00 ECTAB, Daily, Dosing Weight 102.926, kg, Start date: 06/25/16 9:00:00 CDT, Duration: 30 day, Stop date: 07/24/16 9:00:00 CDT heparin No Notes: Memoria 4-01 porcine l 13:00: heparin vancomycin No 2001 mg: Me moria 4-01 infuse l 06:30: over 2.5 hours cefuroxime No Notes: Memor ia + sodium 4-01 (Same As: l chloride 06:00: Kefurox, Soumya nn 0.9% INJ Zinacef) 100 mL MEDICATION WASTE Product Size: 1500 mg Product Wasted: ___ mg Vancomycin No 1,554.795 Me moria 4-01 mg, Route: l 02:00: IVPB, Drug form: INJ, Q12H, Dosing Weight 103.653, kg, Time Critical Medication , Start date: 06/24/16 21:00:00 CDT, Duration: 2 doses or times, Stop date: 06/25/16 9:00:00 CDT chlorhexidi No Notes: Danilo jerry ne - (Same As: l gluconate 02:00: Peridex) Herm jigna 1.2 MG/ML Mouthwash Aspirin 325 No Notes: Danilo jerry MG Oral 4-01 Take with l Tablet 02:00: food. EPINEPHrine No Notes: Danilo jerry 4 mg + 3-31 (Same as: l sodium 23:38: Adrenalin) Soumya nn chloride Suremed - 0.9% INJ Injectable 246 mL drug used as inhalation treatment. MEDICATION WASTE Product Size: 1 mg Product Wasted: ___ mg insulin No Notes: Memoria aspart 3-31 Roll in l 23:37: palms of hands gently; Do not shake vigorously . (Same as: NovoLOG) "single patient use only" WASTE: F/P - Black; E - Municipal Trash Bin Stable for 28 days at room temperatur e. Expires in days from ____Date insulin No Notes: Memoria aspart 3-31 Roll in l 23:36: palms of Taft 00 hands gently; Do not shake vigorously [...] 06-24 Concentrat l 23:00: ion is 20 Taft 00 micrograms /ml metoprolol No Notes: Memor ia tartrate 06-24 (Same as: l 23:00: Lopressor) Ty 00 Cefuroxime No Notes: Memor ia 06-24 (Same As: l 23:00: Kefurox, Taft 00 Zinacef) MEDICATION WASTE Product Size: 1500 mg Product Wasted: ___ mg PHOS-NaK No Notes: Memoria 06-24 (Same as: l 22:44: Phos-NaK) Taft 00 Each 1.5 gm pkt has 250mg phosphorou s. Mix w/2.5oz water and stir. potassium No Notes: Memori a phosphate + 06-24 (Same as: l sodium 22:44: K Taft chloride 00 Phosphate. 0.9% INJ ) 1 mMol 250 mL phoshate has 1.47 mEq potassium Infuse over 4 hours Calcium No Notes: Memoria Gluconate 06-24 WASTE: F/P l 22:44: - Sink; E Taft 00 - Municipal Trash Bin Magnesium No Notes: Memori a Oxide 3-31 (Same as: l 22:44: Mag-Ox Taft 00 400) Magnesium oxide 954ml=015v g elemental magnesium Dose=____m g magnesium oxide (___mg elemental magnesium) Magnesium No Notes: Memori a Sulfate 3 WASTE: F/P l 22:44: - Sink; E Ty 00 - Municipal Trash Bin potassium No Notes: Memori a chloride 3-31 (Same as: l 22:44: Potassium Taft 00 Chloride) Calcium No Notes: Memoria Carbonate 3-31 (Same As: l 500 MG 22:44: Tums) Ty Chewable 00 Calcium Tablet Carbonate 500 mg = 200 mg elemental calcium Dose = mg calcium carbonate ( mg elemental calcium) Insulin, No Notes: Memoria Aspart, - Roll in l Human 22:44: palms of Taft 00 hands gently; Do not shake vigorously . (Same as: NovoLOG) "single patient use only" WASTE: F/P - Black; E - Municipal Trash Bin Stable for 28 days at room temperatur e. Expires in days from ____Date sodium No 45 mmol, Memoria phosphate + 3-31 15 mL, l sodium 22:44: Route: chloride 00 IVPB, PRN, 0.9% INJ Dosing 250 mL Weight 103.653, kg, PRN Abnormal Lab Result, Start date: 06/24/16 17:44:00 CDT, Duration: 30 day, Stop date: 07/24/16 17:43:00 CDT, FOR ICU USE ONLY potassium No Notes: Memori a phosphate 3-31 (Same as: l 22:44: K Ty 00 Phosphate) sodium No 15 mmol, Memoria phosphate 3-31 250 mL, l 22:44: Route: Ty 00 IVPB, Drug form: INJ, PRN, Dosing Weight 103.653, kg, PRN Abnormal Lab Result, Start date: 06/24/16 17:44:00 CDT, Duration: 30 day, Stop date: 07/24/16 17:43:00 CDT, FOR ICU USE ONLY Naloxone No Notes: Memoria 3-31 Same as l 22:44: Narcan Ty 00 Saline No Notes: Memoria Flush 0.9% - (Same as: l 22:44: BD Taft Posiflush) Dulcolax No Notes: Memoria Laxative - (Same As: l 22:44: Dulcolax, Ty Bisco-Lax) Lactulose No Notes: Memori a 667 MG/ML 06-24 (Same l Oral 22:44: as:Chronul Taft Solution 00 ac) albumin No Notes: Memoria human 5% - LOT#: l intravenous 22:44: Taft solution 00 ___ Mfg: WASTE: F/P - Red; E -Red (Same as: Albuminar) "blood product derivative " Acetaminoph No Notes: Do M emoria en 300 MG / 06-24 not exceed l Codeine 22:44: 4gm/day of Herm jigna Phosphate acetaminop 30 MG Oral hen. Tablet (Same as: [Tylenol Tylenol with with Codeine #3] Codeine # 3) Zofran No Notes: Memoria 3-31 (Same as: l 22:44: Zofran) Ty 00 MEDICATION WASTE Product Size: 4 mg Product Wasted: ___ mg Xopenex No 1.25 mg, Memori a 06-24 Route: l 22:44: NEB, PRN, Ty 00 Dosing Weight 102.926, kg, PRN Respirator y Protocol, Start date: 06/24/16 17:44:00 CDT, Duration: 30 day, Stop date: 07/24/16 17:43:00 CDT Morphine No Notes: Memoria 3-31 (Same l 22:44: as:MORPhin Taft e Sulfate) Albuterol No Notes: Memori a 0.833 MG/ML - (Same as: l / 22:44: Duoneb) Ty Ipratropium 00 Combs 0.167 MG/ML Inhalant Solution Glucagon No 1 mg, Memoria 06-24 Route: IM, l 22:44: Drug form: Taft 00 PDR/INJ, PRN, Dosing Weight 103.653, kg, [...] 06-24 not exceed l 22:44: 4 gm/day. Ty 00 (Same as: Tylenol) vasopressin No Route: [...] form: l (ANES) 21:48: INJ, ONCE, Soumya nn Stop date: 06/24/16 16:48:00 CDT nitroglycer No [...] form: l (ANES) 18:29: INJ, Start Soumya nn 00 date: 06/24/16 13:29:00 CDT, Stop date: 06/24/16 14:29:00 CDT midazolam No Route: IV, Me moria (ANES) 06-24 Drug form: l 18:11: SOLN, Taft 00 ONCE, Stop date: 06/24/16 13:11:00 CDT morphine No Route: IV, Mem oria Sulfate 06-24 Drug form: l (ANES) 18:11: INJ, ONCE, Soumya nn 00 Stop date: 06/24/16 13:11:00 CDT Isolyte S No Route: IV, Me moria (PH 7.4) 06-24 Total l 1000 mL 17:39: Volume: Taft (ANES) 00 1,000, Start date: 06/24/16 12:39:00 CDT, Stop date: 06/24/16 13:39:00 CDT sodium 2016-0 No 1,000 mL, Memori a chloride - Rate: 125 l 0.9% 1000 12:35: ml/hr, Rafat n ml INJ 00 Infuse 1,000 mL over: 8 hr, Route: IV, Dosing Weight 99.563 kg, Total Volume: 1,000, Start date: 06/22/16 7:35:00 CDT, Duration: 30 day, Stop date: 07/22/16 7:34:00 CDT Sodium 2016-0 No 250 mL, Memoria Chloride 3-29 250 ml/hr, l 0.154 12:34: Infuse Ty MEQ/ML 00 Over: 1 Injectable hr, Route: Solution IV, 250, Drug form: INJ, ONCE, Priority: STAT, Dosing Weight 99.563 kg, Start date: 06/22/16 7:34:00 CDT, Duration: 1 doses or times, Stop date: 06/22/16 7:34:00 CDT sodium 2016-0 No 1,000 mL, Memori a chloride 3-29 Rate: 125 l 0.9% 1000 12:19: ml/hr, [...] 3-25 Same as l 02:00: Levemir Do Taft 00 not hold insulin without contacting prescriber WASTE: F/P - Black; E - Municipal Trash Bin "single patient use only" Saline No Notes: Memoria Flush 0.9% 3-25 (Same as: l 02:00: BD Ty 00 Posiflush) chlorhexidi No Notes: Danilo jerry ne 3-25 (Same As: l gluconate 01:00: Peridex) Herm jigna 1.2 MG/ML 00 Mouthwash Cefazolin No Notes: Memori a 3-25 Same as: l 00:00: Ancef Ty 00 Mupirocin No 1 appl, Memor ia 0.02 MG/MG -25 Route: l Topical 00:00: NASAL, Ty Ointment 00 ONCALL, Drug form: OINT, Start date: 06/17/16 19:00:00 CDT, Duration: 30 day, Stop date: 07/17/16 18:59:00 CDT sodium No 250 mL, Memoria chloride 3-24 Rate: On l 0.9% INJ 23:54: call for Soumya nn 250 mL 00 use with blood product administra tion, Dosing Weight 102.926, kg, Route: IV, Total Volume: 250, Start Date: 06/17/16 18:54:00 CDT, Duration: 30 day, Stop date: 07/17/16 18:53:00 CDT, Replace Every: 24 hr Saline No Notes: Memoria Flush 0.9% 3-24 (Same as: l 23:54: BD Ty 00 Posiflush) metoprolol No 12.5 mg, Mem oria tartrate 24 Route: PO, l 23:54: Drug form: Ty 00 TAB, Q12H, Dosing Weight 102.926, kg, Priority: NOW, Start date: 06/17/16 18:54:00 CDT, Duration: 30 day, Stop date: 07/17/16 9:00:00 CDT Nitroglycer No Notes: 1 Me moria in 0.02 24 gram is l MG/MG 17:00: approximat Rafat n Topical 00 zara 1 inch Ointment of nitroglyce rin ointment (20 mg NTG per gram) (Same as:Nitro-B id) Enoxaparin No Notes: Memor ia 06-17 Nurse to l 14:00: ensure Ty 00 documentat ion of patient education per anticoagul ation policy. (Same as: Lovenox) Albuterol No Notes: Memori a 0.833 MG/ML 06-17 (Same as: l / 01:00: Duoneb) Taft Ipratropium 00 Combs 0.167 MG/ML Inhalant Solution [DuoNeb] Budesonide No Notes: Memor ia 0.25 MG/ML 06-16 (Same As: l Inhalant 23:32: Pulmicort) Her cazares Solution 00 [Pulmicort] Solu-Medrol No Notes: Danilo jerry 06-16 (Same l 23:12: as:Solu-ME Ty 00 DROL, A-Methapre d) Lovenox No Notes: Memoria 3-23 Nurse to l 23:00: ensure Taft 00 documentat ion of patient education per anticoagul ation policy. (Same as: Lovenox) Sodium No 250 mL, Memoria Chloride 3-23 250 ml/hr, l 0.154 22:00: Infuse Taft MEQ/ML 00 Over: 1 Injectable hr, Route: Solution IV, 250, Drug form: INJ, ONCALL, Priority: Routine, Dosing Weight 102.926 kg, Start date: 06/16/16 17:00:00 CDT, Duration: 1 doses or times Sodium No 750 mL, Memoria Chloride 3-23 Rate: 75 l 0.154 21:15: ml/hr, Taft MEQ/ML 00 Infuse Injectable over: 10 Solution [...] 3-23 not exceed l 21:11: 4 gm/day. Taft 00 (Same as: Tylenol) Sodium No 500 mL, Memoria Chloride 3-23 Rate: 150 l 0.154 21:11: ml/hr, Taft MEQ/ML 00 Infuse Injectable over: 3.3 Solution hr, Route: IV, Dosing Weight 102.926 kg, Total Volume: 500, Start date: 06/16/16 16:11:00 CDT, Stop date: 06/16/16 20:10:00 CDT Sodium No 250 mL, Memoria Chloride 3-23 Route: l 0.9% IV 20:49: IVPB, Start date: 06/16/16 15:49:00 CDT, Duration: 30 [...] Roll in l Human 20:45: palms of Ty 00 hands gently; Do not shake vigorously . (Same as: NovoLOG) "single patient use only" WASTE: F/P - Black; E - Municipal Trash Bin Stable for 28 days at room temperatur e. Expires in days from ____Date Glucagon 2016- No 1 mg, Memoria 3- Route: IM, l 20:45: Drug form: Taft 00 PDR/INJ, PRN, Dosing Weight 102.926, kg, PRN Blood Glucose Results, Start date: 06/16/16 15:45:00 CDT, Duration: 30 day, Stop date: 07/16/16 15:44:00 CDT Sodium 2016- No 1,000 mL, Memori a Chloride 06-16 Rate: 100 l 0.154 14:19: ml/hr, Taft MEQ/ML 00 Infuse Injectable over: 10 Solution [...] as: l 05:00: Lopressor) Ty 00 Sodium 2016-0 No 250 mL, Memoria Chloride 3-23 250 ml/hr, l 0.154 03:00: Infuse [place] MEQ/ML 00 Over: 1 Injectable hr, Route: Solution IV, 250, Drug form: INJ, ONCALL, Priority: Routine, Dosing Weight 102.926 kg, Start date: 06/15/16 22:00:00 CDT, Duration: 1 doses or times Sodium 2016-0 No 750 mL, Memoria Chloride 3-23 Rate: 75 l 0.154 02:02: ml/hr, [place] MEQ/ML 00 Infuse Injectable over: 10 Solution [...] ia 06-16 Nurse to l 00:00: ensure [place] 00 documentat ion of patient education per anticoagul ation policy. (Same as: Lovenox) Albuterol No Notes: Memori a 0.833 MG/ML 06-15 (Same as: l / 18:56: Duoneb) Ipratropium 00 Combs 0.167 MG/ML Inhalant Solution [DuoNeb] Saline No Notes: Memoria Flush 0.9% 06-15 (Same as: l 18:52: BD Posiflush) Labetalol No Notes: Memori a 3-22 (Same as: l 18:52: Normodyne, Ty 00 Trandate) Push over 2 minutes Give bolus over 2-3 minutes. Trazodone No Notes: Memori a Hydrochlori -22 (Same As: l de 50 MG 18:52: Desyrel) Soumya nn Oral Tablet 00 Miralax No Notes: Memoria 3-22 Dissolve l 18:52: in 8 oz of water or juice. (Same as: Miralax) Nitroglycer No Notes: Danilo jerry in - (Same l 18:52: as:Nitroqu [place] 00 ick, Nitrostat) "Do Not Crush" Sublingual tablet Morphine No Notes: Memoria - (Same l 18:52: as:MORPhin [place] 00 e Sulfate) Ondansetron No Notes: Danilo jerry 06-15 (Same as: l 18:52: Zofran) [place]aft 00 Vital Signs Vital Name Observation Time Observation Value Comments Source Systolic blood 2020-09-23 19:45:44 137 mm[Hg] pressure Diastolic blood 2020-09-23 19:45:44 86 mm[Hg] MD Yamilet rowan pressure Heart rate 2020-09-23 19:45:44 88 /min MD Harden son Body temperature 2020-09-23 19:45:44 36.78 Arlen MD Chapo kauron Respiratory rate 2020-09-23 19:45:44 18 /min MD Chapo kauron Oxygen saturation in 2020-09-23 19:45:44 98 /min MD Barrientos Arterial blood by Pulse oximetry Body weight 2020-09-23 09:48:45 99.1 kg MD Harden son BMI 2020-09-23 09:48:45 34.29 kg/m2 MD Harden son Body height 2020-09-17 17:31:22 170 cm MD Harden son Systolic blood 2020-09-11 12:55:00 95 mm[Hg] [facility] Diastolic blood 2020-09-11 12:55:00 55 mm[Hg] [facility] Heart rate 2020-09-11 12:55:00 63 /min [facility] Respiratory rate 2020-09-11 12:55:00 20 /min [facility] Oxygen saturation in 2020-09-11 10:46:00 94 /min [facility] - Arterial blood by Medical Ce nter Pulse oximetry Body temperature 2020-09-11 09:44:00 36.39 Arlen [facility] Body height 2020-09-11 09:44:00 177.8 cm [facility] Body weight 2020-09-11 09:44:00 95.255 kg [facility] BMI 2020-09-11 09:44:00 30.13 kg/m2 [facility] Respitory Rate 2016-06-30 20:27:00 Memori al [place] Systolic (mm Hg) 2016-06-30 20:27:00 Danilo rial [place] Diastolic (mm Hg) 2016-06-30 20:27:00 Mem orial Ty Heart Rate 2016-06-30 20:27:00 [facility] Respitory Rate 2016-06-30 17:09:00 Memori al Ty Systolic (mm Hg) 2016-06-30 17:09:00 Danilo rial [place] Diastolic (mm Hg) 2016-06-30 17:09:00 Mem orial Ty Heart Rate 2016-06-30 17:09:00 [facility] Systolic (mm Hg) 2016-06-30 13:00:00 Danilo rial Ty Diastolic (mm Hg) 2016-06-30 13:00:00 Mem orial [place] Heart Rate 2016-06-30 13:00:00 [facility] Respitory Rate 2016-06-30 13:00:00 [facility] al Ty Weight 2016-06-29 10:00:00 [facility] Weight 2016-06-28 10:23:00 [facility] [place] Height 2016-06-25 05:04:00 177.8 cm [facility] Height 2016-06-25 03:47:00 177.8 cm [facility] [place] Height 2016-06-24 22:55:00 177.8 cm [facility] [place] Temperature Oral (F) 2016-06-24 14:55:00 97.6 F [facility] [place] Weight 2016-06-24 10:00:00 [facility] Temperature Oral (F) 2016-06-20 13:00:00 97.9 F [facility] BMI Calculated 2016-06-15 16:47:00 [facility] al [place] Procedures Procedure Date / Time Performing Clinician Source Performed POC GLUCOSE SCREEN 2020-09-23 19:39:00 Kristina Blake MD Herman on POC GLUCOSE SCREEN 2020-09-23 14:58:00 Kristina Blake MD Herman on CALCIUM IONIZED, VENOUS 2020-09-23 10:22:00 Jose Luis Martínez MD Floyd URIC ACID RASBURICASE 2020-09-23 10:22:00 Jose Luis Martínez MD TREATED COMPLETE BLOOD COUNT W/ 2020-09-23 10:22:00 Kimberlee Blackmon MD DIFFERENTIAL SODIUM LEVEL 2020-09-23 10:22:00 Kimberlee Blackmon MD Jay rson POTASSIUM LEVEL 2020-09-23 10:22:00 Kimberlee Blackmon MD Jay rson CHLORIDE LEVEL 2020-09-23 10:22:00 Kimberlee Blackmon MD Jay rson CARBON DIOXIDE LEVEL 2020-09-23 10:22:00 Kimberlee Blackmon MD BLOOD UREA NITROGEN 2020-09-23 10:22:00 Kimberlee Blackmon MD SERUM CREATININE 2020-09-23 10:22:00 Kimberlee Blackmon MD And erson GLUCOSE, RANDOM 2020-09-23 10:22:00 Kimberlee Blackmon MD Jay rson LACTATE DEHYDROGENASE 2020-09-23 10:22:00 Kimberlee Blackmon PHOSPHORUS LEVEL 2020-09-23 10:22:00 Kimberlee Blackmon MD And erson FRACTIONATED BILIRUBIN 2020-09-23 10:22:00 Kimberlee Blackmon MD ALBUMIN LEVEL 2020-09-23 10:22:00 Kimberlee Blackmon MD Jay rson CALCIUM LEVEL TOTAL 2020-09-23 10:22:00 Kimberlee Blackmon MD MAGNESIUM LEVEL 2020-09-23 10:22:00 Kimberlee Blackmon MD Jay rson ALANINE AMINOTRANSFERASE 2020-09-23 10:22:00 Kimberlee Blackmon MD ASPARTATE AMINOTRANSFERASE 2020-09-23 10:22:00 Kimberlee Blackmon MD ALKALINE PHOSPHATASE 2020-09-23 10:22:00 Kimberlee Blackmon MD TYPE AND SCREEN 2020-09-23 10:22:00 Vania Pascual MD Herman on ABORH 2020-09-23 10:22:00 Kristina Blake MD ANTIBODY SCREEN 2020-09-23 10:22:00 Kristina Blake MD Results CBC 2020-09-23 10:22:00 Kimberlee Blackmon MD Jay rson MANUAL DIFFERENTIAL 2020-09-23 10:22:00 Kimberlee Blackmon MD SERUM CREATININE 2020-09-23 10:22:00 Kimberlee Blackmon MD And erson .GLOMERULAR FILTRATION RATE 2020-09-23 10:22:00 Kimberlee Blackmon MD ANION GAP 2020-09-23 10:22:00 Kimberlee Blackmon MD Jay rson CLOT EXPIRATION DATE 2020-09-23 10:22:00 Kristina Blake MD Jay rson TMP INTERPRETATION ANTIBODY 2020-09-23 10:22:00 Kristina Blake MD SCREEN NEGATIVE POC GLUCOSE SCREEN 2020-09-23 03:28:00 Kristina Blake MD on POC GLUCOSE SCREEN 2020-09-22 22:57:00 Kristina Blake MD on POC GLUCOSE SCREEN 2020-09-22 16:38:00 Kristina Blake MD on FL CHEMO INTO BULB TESTER W/SPIN 2020-09-22 14:44:18 Estella Priest MD PUNC CELL COUNT W/ DIFF 2020-09-22 14:24:00 Kristina Blake MD on CEREBROSPINAL FLUID PROTEIN CEREBROSPINAL FLUID 2020-09-22 14:24:00 Kristina Blake MD GLUCOSE CEREBROSPINAL FLUID 2020-09-22 14:24:00 Kristina Blake MD BETA 2 MICROGLOBULIN CSF 2020-09-22 14:24:00 Kristina Blake MD HP FC LYMPHOMA B 2020-09-22 14:24:00 Estella Priest MD COLLECTION, NONBLOOD HP FC FLOW CYTOMETRY BLOOD 2020-09-22 14:24:00 Estella Priest MD COLLECTION HP FC LYMPHOMA B 2020-09-22 14:24:00 Estella Priest MD KAPPA/LAMBDA INTERPRETATION AND REPORT CYTOLOGY NON-SAMPLE WASHER 2020-09-22 14:22:00 Rosario Lund MD on INTERPRETATION COMPLETE BLOOD COUNT W/ 2020-09-22 09:13:00 Kimberlee Blackmon MD DIFFERENTIAL SODIUM LEVEL 2020-09-22 09:13:00 NeymarKimberlee richter MD Jay rson POTASSIUM LEVEL 2020-09-22 09:13:00 Kimberlee Blackmon MD Jay rson CHLORIDE LEVEL 2020-09-22 09:13:00 Kimberlee Blackmon MD Jay rson CARBON DIOXIDE LEVEL 2020-09-22 09:13:00 Kimberlee Blackmon MD BLOOD UREA NITROGEN 2020-09-22 09:13:00 NeymarKimberlee MD SERUM CREATININE 2020-09-22 09:13:00 NeymarKimberlee richter MD And erson GLUCOSE, RANDOM 2020-09-22 09:13:00 NeymarKimberlee richter MD Jay rson LACTATE DEHYDROGENASE 2020-09-22 09:13:00 Kimberlee Blackmon URIC ACID 2020-09-22 09:13:00 NeymarKimberlee richter MD Jay rson PHOSPHORUS LEVEL 2020-09-22 09:13:00 NeymarKimberlee richter MD And erson FRACTIONATED BILIRUBIN 2020-09-22 09:13:00 NeymarKimberlee richter MD ALBUMIN LEVEL 2020-09-22 09:13:00 Kimberlee Blackmon MD Jay rson CALCIUM LEVEL TOTAL 2020-09-22 09:13:00 Kimberlee Blackmon MD MAGNESIUM LEVEL 2020-09-22 09:13:00 Kimberlee Blackmon MD Jay rson ALANINE AMINOTRANSFERASE 2020-09-22 09:13:00 NeymarKimberlee richter MD ASPARTATE AMINOTRANSFERASE 2020-09-22 09:13:00 Kimberlee Blackmon MD ALKALINE PHOSPHATASE 2020-09-22 09:13:00 Kimberlee Blackmon MD HEPATITIS BE ANTIBODY, 2020-09-22 09:13:00 Swapnil Rose MD SERUM HEPATITIS BE ANTIGEN, SERUM 2020-09-22 09:13:00 Swapnil Rose MD HEPATITIS B CORE ANTIBODY 2020-09-22 09:13:00 Swapnil Rose MD HEPATITIS B SURFACE 2020-09-22 09:13:00 Swapnil Rose MD Dereck son ANTIBODY, SERUM Results CBC 2020-09-22 09:13:00 Kimberlee Blackmon MD Jay rson MANUAL DIFFERENTIAL 2020-09-22 09:13:00 Kimberlee Blackmon MD SERUM CREATININE 2020-09-22 09:13:00 Kimberlee Blackmon MD And erson .GLOMERULAR FILTRATION RATE 2020-09-22 09:13:00 Kimberlee Blackmon MD HC REF HEPATITIS BC AB, IGG 2020-09-22 09:13:00 Swapnil Rose MD & IGM ANION GAP 2020-09-22 09:13:00 Kimberlee Blackmon MD Jay rson POC GLUCOSE SCREEN 2020-09-22 02:40:00 Kristina Blake MD on POC GLUCOSE SCREEN 2020-09-21 22:06:00 Kristina Blake MD on T-SPOT TUBERCULOSIS 2020-09-21 21:36:00 Torin Orozco MD Dereck julio SERUM CREATININE 2020-09-21 21:36:00 Jose Luis Martínez MD BLOOD UREA NITROGEN 2020-09-21 21:36:00 Jose Luis Martínez MD MAGNESIUM LEVEL 2020-09-21 21:36:00 Jose Luis Martínez MD PHOSPHORUS LEVEL 2020-09-21 21:36:00 Jose Luis Martínez MD CALCIUM IONIZED, VENOUS 2020-09-21 21:36:00 Jose Luis Martínez MD LACTATE DEHYDROGENASE 2020-09-21 21:36:00 Jose Luis Martínez MD URIC ACID RASBURICASE 2020-09-21 21:36:00 Jose Luis Martínez MD TREATED CARDIAC PANEL 2020-09-21 21:36:00 Peyton Santana MD PROTHROMBIN TIME 2020-09-21 21:36:00 Kristina Blake MD PARTIAL THROMBOPLASTIN TIME 2020-09-21 21:36:00 Kristina Blake MD SERUM CREATININE 2020-09-21 21:36:00 Jose Luis Martínez MD .GLOMERULAR FILTRATION RATE 2020-09-21 21:36:00 Jose Luis Martínez MD PROCEDURE FOR CODING 2020-09-21 20:53:00 Kristina Blake MD Jay rson POC GLUCOSE SCREEN 2020-09-21 15:25:00 Kristina Blake MD on CARDIAC PANEL 2020-09-21 14:54:00 Peyton Santana MD CARDIAC PANEL 2020-09-21 07:25:00 Peyton Santana MD COMPLETE BLOOD COUNT W/ 2020-09-21 06:26:00 Kimberlee Blackmon MD DIFFERENTIAL SODIUM LEVEL 2020-09-21 06:26:00 Kimberlee Blackmon MD Jay rson POTASSIUM LEVEL 2020-09-21 06:26:00 Kimberlee Blackmon MD Jay rson CHLORIDE LEVEL 2020-09-21 06:26:00 Kimberlee Blackmon MD Jay rson CARBON DIOXIDE LEVEL 2020-09-21 06:26:00 Kimberlee Blackmon MD BLOOD UREA NITROGEN 2020-09-21 06:26:00 Kimberlee Blackmon MD SERUM CREATININE 2020-09-21 06:26:00 Kimberlee Blackmon MD And erson GLUCOSE, RANDOM 2020-09-21 06:26:00 Kimberlee Blackmon MD Jay rson LACTATE DEHYDROGENASE 2020-09-21 06:26:00 Kimberlee Blackmon URIC ACID 2020-09-21 06:26:00 Kimberlee Blackmon MD Jay rson PHOSPHORUS LEVEL 2020-09-21 06:26:00 Kimberlee Blackmon MD And erson FRACTIONATED BILIRUBIN 2020-09-21 06:26:00 Kimberlee Blackmon MD ALBUMIN LEVEL 2020-09-21 06:26:00 Kimberlee Blackmon MD Jay rson CALCIUM LEVEL TOTAL 2020-09-21 06:26:00 Kimberlee Blackmon MD MAGNESIUM LEVEL 2020-09-21 06:26:00 Kimberlee Blackmon MD Jay rson ALANINE AMINOTRANSFERASE 2020-09-21 06:26:00 Kimberlee Blackmon MD ASPARTATE AMINOTRANSFERASE 2020-09-21 06:26:00 Kimberlee Blackmon MD ALKALINE PHOSPHATASE 2020-09-21 06:26:00 Kimberlee Blackmon MD PROTHROMBIN TIME 2020-09-21 06:26:00 Peyton Santana MD Herman on PARTIAL THROMBOPLASTIN TIME 2020-09-21 06:26:00 Kalpesh Santana MD Results CBC 2020-09-21 06:26:00 Kimberlee Blackmon MD Jay rsaldo MANUAL DIFFERENTIAL 2020-09-21 06:26:00 Kimberlee Blackmon MD SERUM CREATININE 2020-09-21 06:26:00 Kimberlee Blackmon MD And erson .GLOMERULAR FILTRATION RATE 2020-09-21 06:26:00 Kimberlee Blackmon MD ANION GAP 2020-09-21 06:26:00 Kimberlee Blackmon MD Jay rson POC GLUCOSE SCREEN 2020-09-21 04:50:00 Kristina Blake MD on POC GLUCOSE SCREEN 2020-09-21 02:40:00 Kristina Blake MD on EKG, 12-LEAD (PORTABLE) 2020-09-21 00:00:00 Mary Smith MDrsaldo SERUM CREATININE 2020-09-20 21:41:00 Jose Luis Martínez MD BLOOD UREA NITROGEN 2020-09-20 21:41:00 Jose Luis Martínez MD Jaylarissa duke MAGNESIUM LEVEL 2020-09-20 21:41:00 Jose Luis Martínez MD PHOSPHORUS LEVEL 2020-09-20 21:41:00 Jose Luis Martínez MD CALCIUM IONIZED, VENOUS 2020-09-20 21:41:00 Jose Luis Martínez MD LACTATE DEHYDROGENASE 2020-09-20 21:41:00 Jose Luis Martínez MD URIC ACID RASBURICASE 2020-09-20 21:41:00 Jose Luis Martínez MD TREATED SERUM CREATININE 2020-09-20 21:41:00 Jose Luis Martínez MDGLOMERULAR FILTRATION RATE 2020-09-20 21:41:00 Jose Luis Martínez MD POC GLUCOSE SCREEN 2020-09-20 19:35:00 Kristina Blake MD on POC GLUCOSE SCREEN 2020-09-20 13:11:00 Kristina Blake MD on ALKALINE PHOSPHATASE 2020-09-20 09:53:00 Kimberlee Blackmon MD TYPE AND SCREEN 2020-09-20 09:53:00 Vania Pascual MD on ABORH 2020-09-20 09:53:00 Kristina Blake MD ANTIBODY SCREEN 2020-09-20 09:53:00 Kristina Blake MD Results CBC 2020-09-20 09:53:00 Kimberlee Blackmon MD Jay rson MANUAL DIFFERENTIAL 2020-09-20 09:53:00 Kimberlee Blackmon MD SERUM CREATININE 2020-09-20 09:53:00 Kimberlee Blackmon MD And erson .GLOMERULAR FILTRATION RATE 2020-09-20 09:53:00 Kimberlee Blackmon MD ANION GAP 2020-09-20 09:53:00 Kimberlee Blackmon MD Jay rson TMP INTERPRETATION ANTIBODY 2020-09-20 09:53:00 Kristina Blake MD SCREEN NEGATIVE CLOT EXPIRATION DATE 2020-09-20 09:53:00 Kristina Blake MD Jay rson COMPLETE BLOOD COUNT W/ 2020-09-20 09:53:00 Kimberlee Blackmon MD DIFFERENTIAL SODIUM LEVEL 2020-09-20 09:53:00 Kimberlee Blackmon MD Jay rson POTASSIUM LEVEL 2020-09-20 09:53:00 Kimberlee Blackmon MD Jay rson CHLORIDE LEVEL 2020-09-20 09:53:00 Kimberlee Blackmon MD Jay rson CARBON DIOXIDE LEVEL 2020-09-20 09:53:00 Kimberlee Blackmon MD BLOOD UREA NITROGEN 2020-09-20 09:53:00 NeymarKimberlee richter MD SERUM CREATININE 2020-09-20 09:53:00 NeymarKimberlee richter MD And erson GLUCOSE, RANDOM 2020-09-20 09:53:00 NeymarKimberlee richter MD Jay rson LACTATE DEHYDROGENASE 2020-09-20 09:53:00 NeymarKimberlee richter URIC ACID 2020-09-20 09:53:00 NeymarKimberlee richter MD Jay rson PHOSPHORUS LEVEL 2020-09-20 09:53:00 NeymarKimberlee richter MD And erson FRACTIONATED BILIRUBIN 2020-09-20 09:53:00 NeymarKimberlee richter MD ALBUMIN LEVEL 2020-09-20 09:53:00 NeymarKimberlee richter MD Jay rson CALCIUM LEVEL TOTAL 2020-09-20 09:53:00 NeymarKimberlee richter MD MAGNESIUM LEVEL 2020-09-20 09:53:00 Kimberlee Blackmon MD Jay rson ALANINE AMINOTRANSFERASE 2020-09-20 09:53:00 NeymarKimberlee richter MD ASPARTATE AMINOTRANSFERASE 2020-09-20 09:53:00 Kimberlee Blackmon MD POC GLUCOSE SCREEN 2020-09-20 03:33:00 Kristina Blake MD on POC GLUCOSE SCREEN 2020-09-20 02:23:00 Kristina Blake MD on US RENAL 2020-09-19 21:28:09 Mauri Neal MD SERUM CREATININE 2020-09-19 21:28:00 Jose Luis Martínez MD BLOOD UREA NITROGEN 2020-09-19 21:28:00 Jose Luis Martínez MD Jay rson MAGNESIUM LEVEL 2020-09-19 21:28:00 Jose Luis Martínez MD PHOSPHORUS LEVEL 2020-09-19 21:28:00 Jose Luis Martínez MD CALCIUM IONIZED, VENOUS 2020-09-19 21:28:00 Jose Luis Martínez MD LACTATE DEHYDROGENASE 2020-09-19 21:28:00 Jose Luis Martínez MD URIC ACID RASBURICASE 2020-09-19 21:28:00 Jose Luis Martínez MD TREATED SERUM CREATININE 2020-09-19 21:28:00 Jose Luis Martínez MD .GLOMERULAR FILTRATION RATE 2020-09-19 21:28:00 Jose Luis Martínez MD POC GLUCOSE SCREEN 2020-09-19 20:52:00 Kristina Blake MD on POC GLUCOSE SCREEN 2020-09-19 18:19:00 Kristina Blake MD on URINALYSIS MICROSCOPIC 2020-09-19 17:24:00 Mauri Neal MD URINALYSIS WITH MICROSCOPIC 2020-09-19 17:24:00 Kristina Blake MD IF INDICATED POC GLUCOSE SCREEN 2020-09-19 13:06:00 Kristina Blake MD on COMPLETE BLOOD COUNT W/ 2020-09-19 09:42:00 Kimberlee Blackmon MD DIFFERENTIAL SODIUM LEVEL 2020-09-19 09:42:00 Kimberlee Blackmon MD Jay rson POTASSIUM LEVEL 2020-09-19 09:42:00 Kimberlee Blackmon MD Jay rson CHLORIDE LEVEL 2020-09-19 09:42:00 Kimberlee Blackmon MD Jay rson CARBON DIOXIDE LEVEL 2020-09-19 09:42:00 Kimberlee Blackmon MD BLOOD UREA NITROGEN 2020-09-19 09:42:00 Kimberlee Blackmon MD SERUM CREATININE 2020-09-19 09:42:00 Kimberlee Blackmon MD And erson GLUCOSE, RANDOM 2020-09-19 09:42:00 Kimberlee Blackmon MD Jay rson LACTATE DEHYDROGENASE 2020-09-19 09:42:00 Kimberlee Blackmon URIC ACID 2020-09-19 09:42:00 Kimberlee Blackmon MD Jay rson PHOSPHORUS LEVEL 2020-09-19 09:42:00 Kimberlee Blackmon MD And erson FRACTIONATED BILIRUBIN 2020-09-19 09:42:00 Kimberlee Blackmon MD ALBUMIN LEVEL 2020-09-19 09:42:00 Kimberlee Blackmon MD Jay rson CALCIUM LEVEL TOTAL 2020-09-19 09:42:00 Kimberlee Blackmon MD MAGNESIUM LEVEL 2020-09-19 09:42:00 Kimberlee Blackmon MD Jay rson ALANINE AMINOTRANSFERASE 2020-09-19 09:42:00 Kimberlee Blackmon MD ASPARTATE AMINOTRANSFERASE 2020-09-19 09:42:00 Kimberlee Blackmon MD ALKALINE PHOSPHATASE 2020-09-19 09:42:00 Kimberlee Blackmon MD HC HIV 1/2 AG AND AB 4TH 2020-09-19 09:42:00 Torin Orozco MD GEN HBV DNA QUANT 2020-09-19 09:42:00 Torin Orozco MD Results CBC 2020-09-19 09:42:00 Kimberlee Blackmon MD Jay rsaldo MANUAL DIFFERENTIAL 2020-09-19 09:42:00 Kimberlee Blackmon MD SERUM CREATININE 2020-09-19 09:42:00 Kimberlee Blackmon MD And erson .GLOMERULAR FILTRATION RATE 2020-09-19 09:42:00 Kimberlee Blackmon MD ANION GAP 2020-09-19 09:42:00 Kimberlee Blackmon MD Jay rsaldo TMP HIV 1/2 AG&AB PATH 2020-09-19 09:42:00 Swapnil Rose MD INTERP POC GLUCOSE SCREEN 2020-09-19 04:35:00 Kristina Blake MD on POC GLUCOSE SCREEN 2020-09-19 02:27:00 Kristina Blake MD on CT CHEST PULMONARY EMBOLISM 2020-09-19 02:13:20 Jose Luis Martínez MD W CONTRAST MRI BRAIN W WO CONTRAST 2020-09-19 01:44:00 Kimberlee Blackmon MD INFECTIOUS DISEASE GROUPING 2020-09-18 19:25:00 Jose Luis Martínez MD CMV ANTIBODY IGG AND IGM 2020-09-18 19:25:00 Jose Luis Martínez MD CMV ANTIBODY IGG AND IGM 2020-09-18 19:25:00 Jose Luis Martínez MD PATH REVIEW SERUM CREATININE 2020-09-18 19:25:00 Jose Luis Martínez MD BLOOD UREA NITROGEN 2020-09-18 19:25:00 Jose Luis Martínez MD rson MAGNESIUM LEVEL 2020-09-18 19:25:00 Jose Luis Martínez MD PHOSPHORUS LEVEL 2020-09-18 19:25:00 Jose Luis Martínez MD CALCIUM IONIZED, VENOUS 2020-09-18 19:25:00 Jose Luis Martínez MD LACTATE DEHYDROGENASE 2020-09-18 19:25:00 Jose Luis Martínez MD URIC ACID RASBURICASE 2020-09-18 19:25:00 Jose Luis Martínez MD TREATED PTH INTACT 2020-09-18 19:25:00 Rene Sanchez MD IRON LEVEL 2020-09-18 19:25:00 Rene Sanchez MD FERRITIN LVL 2020-09-18 19:25:00 Rene Sanchez MD TRANSFERRIN 2020-09-18 19:25:00 Rene Sanchez MD SERUM CREATININE 2020-09-18 19:25:00 Jose Luis Martínez MD .GLOMERULAR FILTRATION RATE 2020-09-18 19:25:00 Jose Luis Martínez MD HIV-1 DNA AND RNA QUAL PCR 2020-09-18 19:25:00 Jose Luis Martínez MD HIV-1/2 ANTIGEN AND 2020-09-18 19:25:00 Jose Lusi Martínez MD rson ANTIBODIES, FOURTH GENERATION RAPID PLASMA REAGIN (RPR) 2020-09-18 19:25:00 Jose Luis Martínez TMP HIV 1/2 AG&AB PATH 2020-09-18 19:25:00 Jose Luis Martínez MD nderson INTERP TMP RPR PATH INTERP 2020-09-18 19:25:00 Jose Luis Martínez MD Jay rson HEPATITIS C VIRUS RNA 2020-09-18 19:25:00 Kristina Blake MD And erson DETECT/QUANT, SERUM HTLV I+II AB CONFIRMATION, 2020-09-18 19:25:00 Kristina Blake SERUM POC GLUCOSE SCREEN 2020-09-18 19:24:00 Kristina Blake MD Herman on HEPATITIS B CORE ANTIBODY 2020-09-18 15:37:00 Jose Luis Martínez HEPATITIS B SURFACE 2020-09-18 15:37:00 Kristina Blake MD Dereck son ANTIGEN, SERUM HEPATITIS B CORE TOTAL 2020-09-18 15:37:00 Jose Luis Martínez MD nderson ANTIBODY HEPATITIS B SURFACE AG 2020-09-18 15:37:00 Jose Luis Martínez MD nderson W/CONFIRM HEPATITIS C VIRUS AB SCREEN 2020-09-18 15:37:00 Jose Luis Martínez MD W/REFLEX HCV PCR HTLV I/II AB SCREEN WITH 2020-09-18 15:37:00 Jose Luis Martínez CONFIRM POC GLUCOSE SCREEN 2020-09-18 13:08:00 Kristina Blake MD Herman on COMPLETE BLOOD COUNT W/ 2020-09-18 06:24:00 Kimberlee Blackmon MD DIFFERENTIAL SODIUM LEVEL 2020-09-18 06:24:00 Kimberlee Blackmon MD Jay rson POTASSIUM LEVEL 2020-09-18 06:24:00 Kimberlee Blackmon MD Jay rson CHLORIDE LEVEL 2020-09-18 06:24:00 Kimberlee Blackmon MD Jay rson CARBON DIOXIDE LEVEL 2020-09-18 06:24:00 Kimberlee Blackmon MD BLOOD UREA NITROGEN 2020-09-18 06:24:00 Kimberlee Blackmon MD SERUM CREATININE 2020-09-18 06:24:00 Kimberlee Blackmon MD And erson GLUCOSE, RANDOM 2020-09-18 06:24:00 Kimberlee Blackmon MD Jay rson LACTATE DEHYDROGENASE 2020-09-18 06:24:00 Kimberlee Blackmon URIC ACID 2020-09-18 06:24:00 Kimberlee Blackmon MD Jay rson PHOSPHORUS LEVEL 2020-09-18 06:24:00 NeymarKimberlee richter MD And erson FRACTIONATED BILIRUBIN 2020-09-18 06:24:00 NeymarKimberlee richter MD ALBUMIN LEVEL 2020-09-18 06:24:00 Kimberlee Blackmon MD Jay rson CALCIUM LEVEL TOTAL 2020-09-18 06:24:00 Kimberlee Blackmon MD MAGNESIUM LEVEL 2020-09-18 06:24:00 Kimberlee Blackmon MD Jay rson ALANINE AMINOTRANSFERASE 2020-09-18 06:24:00 Kimberlee Blackmon MD ASPARTATE AMINOTRANSFERASE 2020-09-18 06:24:00 Kimberlee Blackmon MD ALKALINE PHOSPHATASE 2020-09-18 06:24:00 Kimberlee Blackmon MD Results CBC 2020-09-18 06:24:00 Kimberlee Blackmon MD Jay rsaldo MANUAL DIFFERENTIAL 2020-09-18 06:24:00 Kimberlee Blackmon MD SERUM CREATININE 2020-09-18 06:24:00 Kimberlee Blackmon MD And erson .GLOMERULAR FILTRATION RATE 2020-09-18 06:24:00 Kimberlee Blackmon MD ANION GAP 2020-09-18 06:24:00 Kimberlee Blackmon MD Jay rson XR CHEST 1 VW POST IMPLANT 2020-09-18 06:12:15 Kristi Shankar ECHOCARDIOGRAM 2D COMPLETE 2020-09-17 21:14:08 Kimberlee Blackmon MD TYPE AND SCREEN 2020-09-17 19:19:00 Kimberlee Blackmon MD Jay rson ABORH 2020-09-17 19:19:00 Kimberlee Blackmon MD Jaylarissa duke ANTIBODY SCREEN 2020-09-17 19:19:00 Kimberlee Blackmon MD Jay rsaldo COMPLETE BLOOD COUNT W/ 2020-09-17 19:19:00 Kristina Blake MDrson DIFFERENTIAL COMPREHENSIVE METABOLIC 2020-09-17 19:19:00 Kristina Blake MD nderson PANEL MAGNESIUM LEVEL 2020-09-17 19:19:00 Kristina Blake MD PHOSPHORUS LEVEL 2020-09-17 19:19:00 Kristina Blake MD LACTATE DEHYDROGENASE 2020-09-17 19:19:00 Kristina Blake MD And erson Results CBC 2020-09-17 19:19:00 Kristina Blake MD MANUAL DIFFERENTIAL 2020-09-17 19:19:00 Kristina Blake MD Dereckedel kim GLUCOSE LEVEL 2020-09-17 19:19:00 Kristina Blake MD BLOOD UREA NITROGEN 2020-09-17 19:19:00 Kristina Blake MD Dereckedel kim ELECTROLYTE PANEL 2020-09-17 19:19:00 Kristina Blake MD SERUM CREATININE 2020-09-17 19:19:00 Kristina Blake MD .GLOMERULAR FILTRATION RATE 2020-09-17 19:19:00 Kristina Blake MD CALCIUM LEVEL TOTAL 2020-09-17 19:19:00 Kristina Blake MD Dereck son ALBUMIN LEVEL 2020-09-17 19:19:00 Kristina Blake MD ALKALINE PHOSPHATASE 2020-09-17 19:19:00 Kristina lBake MD Jaylarissa duke ALANINE AMINOTRANSFERASE 2020-09-17 19:19:00 Kristina Blake MD ASPARTATE AMINOTRANSFERASE 2020-09-17 19:19:00 Kristina Blake TOTAL PROTEIN 2020-09-17 19:19:00 Kristina Blake MD FRACTIONATED BILIRUBIN 2020-09-17 19:19:00 Kristina Blake MD derson CLOT EXPIRATION DATE 2020-09-17 19:19:00 Kimberlee Blackmon MD TMP INTERPRETATION ANTIBODY 2020-09-17 19:19:00 Kimberlee Blackmon MD SCREEN NEGATIVE CONFIRM ABORH TYPE 2020-09-17 19:16:00 Kristina Blake MD on INFLUENZA A/B + COVID-19 2020-09-17 18:42:00 Nolvia Robison MD ASYMPTOMATIC-L Kelley EKG, 12-LEAD (PORTABLE) 2020-09-17 00:00:00 Kimberlee Blackmon MD PETCT INITIAL TREATMENT 2020-09-16 16:58:09 Jesenia Mays MD STRATEGY Tony POC GLUCOSE SCREEN 2020-09-16 15:12:00 Jesenia Mayse rson [facility] BRAIN WITHOUT IV 2020-09-11 12:15:00 [facility] URINALYSIS W/ MICROSCOPIC 2020-09-11 10:53:00 [facility] BLOOD CULTURE 2020-09-11 10:35:00 [facility] LACTIC ACID, VENOUS 2020-09-11 10:29:00 [facility] POCT-GLUCOSE METER 2020-09-11 10:18:00 [facility] TROPONIN I 2020-09-11 10:12:00 [facility] CREATINE KINASE (CK) 2020-09-11 10:12:00 [facility] CBC W/PLT COUNT & AUTO 2020-09-11 10:12:00 [facility] COMPREHENSIVE METABOLIC 2020-09-11 10:12:00 [facility] PROTHROMBIN TIME/INR 2020-09-11 10:12:00 [facility] APTT 2020-09-11 10:12:00 [facility] XR CHEST 1 VIEW 2020-09-11 10:00:00 Dominga Mendez [facility] - PORTABLE/BEDSIDE [facility] ED ECG INTERPRETATION 2020-09-11 09:54:59 [facility] US HEAD NECK SOFT TISSUE 2020-09-10 19:51:20 Jesenia Mays [place] US FINE NEEDLE ASPIRATION 2020-09-10 19:51:20 Jesenia Mays MD, [place] US GUIDED SOFT TISSUE 2020-09-10 19:51:20 Jesenia Mays MDrson BIOPSY Gary PATHOLOGY BIOPSY 2020-09-10 18:52:00 Jesenia Mays MD Herman on INTERPRETATION Gary CYTOLOGY IMAGE-GUIDED FNA 2020-09-10 17:14:00 Jesenia Mays MD INTERPRETATION Gary HP CYTOGENETICS BLOOD 2020-09-10 16:53:00 Nimo Keita MD And erson COLLECTION HP CG MYC IGH CEP8 FISH 2020-09-10 16:53:00 Nimo Keita MDrsaldo INTERPRETATION AND REPORT HP CYTOGENETICS BLOOD 2020-09-10 12:17:00 Nimo Keita MD And erson COLLECTION HP CG IGH/BCL2 T(14;18) 2020-09-10 12:17:00 Nimo Keita MD nderson TISSUE FISH INTERPRETATION AND REPORT HP CG MYC TISSUE FISH 2020-09-10 12:17:00 Nimo Keita MD And erson INTERPRETATION AND REPORT HEPATITIS C VIRUS ANTIBODY 2020-09-09 16:05:00 Jesenia Mays MD, [place] HEMOGLOBIN A1C 2020-09-09 16:05:00 Jesenia Mays MDo n Tony HEPATITIS C VIRUS AB SCREEN 2020-09-09 16:05:00 Mile Mays MD W/REFLEX HCV PCR Gary HEPATITIS C VIRUS RNA 2020-09-09 16:05:00 Jesenia Mays MDon DETECT/QUANT, SERUM Gary RAPID DRUG SCREEN, URINE 2020-09-07 15:55:00 Afshan Blanco CH I [facility] URINALYSIS W/ MICROSCOPIC 2020-09-07 15:55:00 Afshan Blanco HI [facility] PHOSPHORUS 2020-09-07 14:33:00 Afshan Blanco [facility] TROPONIN I 2020-09-07 14:33:00 Afshan Blanco [facility] ETHANOL 2020-09-07 14:33:00 [facility] CBC W/PLT COUNT & AUTO 2020-09-07 14:33:00 [facility] 2020-09-07 14:33:00 [facility] COMPREHENSIVE METABOLIC 2020-09-07 14:33:00 Afshan Blanco [facility] ED ECG INTERPRETATION 2020-09-07 13:49:38 Blanco Afshan [facility] REPORT OF PROCEDURE - 2020-09-07 00:00:00 Provider, Default [facility] - ENDOSCOPY SCAN Scanning [facility] COVID-19 (SARS-COV-2) 2020-09-05 18:36:00 Sheng Alfaro MD And bijan PCR-ASYMPTOMATIC MC Repair of knee collateral 1973-03-27 00:00:00 Me morial Taft ligaments Plan of Care Planned Activity Planned Date Details Comments Source Future Scheduled Test 2020-11-25 INFLUENZA VACCINE C [facility] (Season Ended) [code Medical Center = INFLUENZA VACCINE (Season Ended)] Future Scheduled Test 2020-06-25 Medicare IPPE [facility] - 00:00:00 (WELCOME TO MEDICARE) Medica l Center [code = Medicare IPPE (WELCOME TO MEDICARE)] Future Scheduled Test 2020-03-27 DEPRESSION SCREENING [facility] - 00:00:00 (12+) [code = Medical Center DEPRESSION SCREENING (12+)] Future Scheduled Test 2013 PNEUMOCOCCAL 65+ YRS [facility] - 00:00:00 (2 of 2 - PPSV23) Medical Ce nter [code = PNEUMOCOCCAL 65+ YRS (2 of 2 - PPSV23)] Future Scheduled Test 1998 SHINGLES VACCINES ([address] [facility] - 00:[facility]:00 of 2) [code = Medical Center SHINGLES VACCINES (1 of 2)] Future Scheduled Test 1967-10-09 DTAP/TDAP/TD VACCINES [facility] - 00:[facility]:00 (1 - Tdap) [code = Medical C enter DTAP/TDAP/TD VACCINES (1 - Tdap)] Future Scheduled Test 1966 HEPATITIS C [facility]CRE[facility]ING [facility] - 00:[facility]00 [code = HEPATITIS C Medical Center SCREENING] Future Scheduled Test 1960 COVID-19 VACCINE (1) [facility] - 00:00:00 [code = COVID-[address] VACCINE (1)] Future Scheduled Test [facility] malignant neoplasm of Medica l Center colon (procedure) [code = 436378754] Future Appointment 2020 Aimee Mcfadden MD 14:00:[address] [place] [address] Future Appointment 2020 Aimee Mcfadden MD 14:00:[address] [place] [address] Encounters Start End Encounter Admission Attending Care Care Encounter Source Date/Time Date/Time Type Type Clinicians Facility Department ID 2020-09-[address] [facility] [id number] 08:45:30 BETH archuleta 2020-09-03 Outpatient SYSTEMJUDITH MDA [id number] 11:18:01 PROVIDER Herman o n 2020-09-17 2020-09-23 Inpatient RACHEL BLAKE MDA Lymphoma/My [id number] 12:22:00 17:54:00 PREETES larissa Dereck so n 2020-09-23 2020-09-23 Inpatient RACHEL BLAKE MDA MDA [id number] 17:09:44 17:43:35 [facility] 2020-09-23 2020-09-23 Inpatient RACHEL BLAKE MDA MDA [id number] 17:24:14 17:24:18 [facility] Dereck so n 2020-09-23 2020-09-23 Inpatient EL CEM, MDA MDA [id number] 14:55:27 15:19:17 ESTELLA archuleta 2020-09-18 2020-09-18 Inpatient EL SARAH, MDA MDA [id number] 20:07:46 20:07:49 ULISSES archuleta 2020-09-17 2020-09-17 Inpatient EL BETH, MDA MDA [id number] 22:31:02 23:36:29 KRISTI archuleta 2020-09-17 2020-09-17 Inpatient EL HAYDEN, MDA MDA [id number] MD 19:51:09 19:51:13 KRISTINA Harden so geremias 2020-09-16 2020-09-16 Outpatient EL SARAH, MDA MDA [id number] 12:54:09 16:41:32 ULISSES archuleta 2020-09-16 2020-09-16 Outpatient RACHEL ALFARO JR, MDA MDA [id number] 10:58:41 10:58:41 SHENG archuleta 2020-09-16 2020-09-16 Outpatient EL ELINOR, MDA MDA [id number] 09:08:16 09:08:16 JESENIA archuleta 2020-09-15 2020-09-15 Outpatient EL ZEINAB, MDA MDA [id number] 18:51:00 23:59:00 TIRSO archuleta 2020-09-15 2020-09-15 Outpatient EL ZEINAB, MDA MDA [id number] 18:38:00 18:50:00 TIRSO acrhuleta 2020-09-07 2020-09-07 Outpatient RACHEL ALFARO JR, MDA MDA [id number] 12:27:14 12:27:14 SHENG archuleta 2020-09-07 2020-09-07 Outpatient EL MDA MDA [id number] 12:21:08 12:21:08 Herman archuleta 2020-09-05 2020-09-05 Outpatient EL JULIANITZA, MDA MDA [id number] 13:30:27 13:43:02 ANGELO archuleta 2020-08-18 2020-08-18 Outpatient [facility] [id number] [facility] 2020-08-17 2020-08-17 Outpatient [facility] [id number] [facility] 2020-08-13 2020-08-13 Outpatient [facility] [id number] [facility] 2020-07-13 2020-07-13 Outpatient [facility] [id number] [facility] 2020-06-19 2020-06-19 Outpatient [facility] [id number] [facility] 2020-05-08 2020-05-08 Outpatient [facility] [id number] [facility] 2020-05-01 2020-05-01 Outpatient [facility] [id number] [facility] 2020-04-29 2020-04-29 Outpatient [facility] [id number] [facility] 2020-04-15 2020-04-15 Outpatient [facility] [id number] [facility] 2020-03-02 2020-03-02 Outpatient [facility] [id number] [facility] 2020-02-13 2020-02-13 Outpatient [facility] [id number] [facility] 2020-01-29 2020-01-29 Laboratory Only, Adc [facility] [id number] 10:22:41 10:37:41 Only Test Harris [id number] [place] [id number] [place] [id number] 2020-01-21 2020-01-21 [facility] [id number] [facility] 2020-01-21 2020-01-21 [facility] [id number] [facility]00 [facility] Out[facility] 2020-01-10 2020-01-10 Telephone Willy OKEVITA [id number] 00:00:00 00:00:00 Wyatt Iglesias [id number] [place] 4.2.7.2.686 [facility] [id number] [address] 2018-01-16 2018-01-17 Outpatient [facility] [id number] 13:43:00 23:59:59 00 2016-06-15 2016-06-30 Outpatient Eugenia Benedict [facility] [id number] 13:52:00 19:05:00 Ana 81 Results Test Description Test Time Test Comments Results Result Comments Source HTLV I/II Ab Confirmation Only 2020-09-25 20:06:14 Test Item Value Reference Range Interpretation Comme nts HTLV I/II Conf-Linn (test Positive Negative A RE PORTABLE DISEASE. Confirmatory code = 5844) test is the def initivetest for HTLV-I/-II infe ction status. HTLV I/II Bnds-Linn (test See Footnote RE SULT: Reactivity at p19-I/II, code = 5843) p24-I/II, gp46- I/II, gp21-I/II HTLV I/II Disc-Linn (test HTLV-II - ADDITIONAL code = 5845) INFORMATION---- This test was hiwot wiggins and its performance characteristics determined by [facility] in a man ner consistent with CLIArequirement s. This test has not been cleared or approved bythe U.S. Food and Drug A dministration. Test Performed by:[facility] Ceiyf5655 [facility], [place], [place] [address]Lab Director: Alonso asher M.D. Ph.D.; CLIA# [id number] Lab Interpretation (test Abnormal code = 22724-5) MD BarrientosT-spot [id number] 19:34:54 Test Item Value Reference Range Interpretation Comments Tspot TB NIL Cont (test TMTC code = 9396) Tspot TB Panel A (test TMTC code = 9397) Tspot TB Panel B (test TMTC code = 9398) Tspot TB Pos Cont (test TMTC NOTE : TMTC INDICATES code = 9399) TOO MANY SPOTS TO COUNT. SAT IND ICATES THE WELL WAS SATURATED. Tspot TB (test code = Invalid Negative A Invali d test - There 7863) were >10 spots in the negative contro l well.Performing Lab:[address] [address] Tspot TB Interp (test See Note Result s code = 9400) Interpretation: Results are Neg ative when (Panel A - NIL) and (Panel B - NIL) ? 4 spots, includ ing values less fabrice n zero.Results ar e Positive when ( Panel A - NIL) and (Jackson el B - NIL) ? 8 spots. Results are Borderline when either (Panel A - NIL) and (Panel B - NIL) = 5, 6, or 7. The test is invalid when either of the followin g conditions is m et:1.) The NIL Control has > 10 spots.2.) Th e Mitogen (Positi ve Control) has <2 0 spots and both (Panel A - NIL) and (Panel B - NIL) ? 4 spots. M. tuberculosis in fection cannot be exclu ded when:1. Any ill ness is consistent with TB disease.2. Like lihood of progression to disease (e.g. D ue to Immunosuppressi on) is increased. Limi tations Diagnosing or excluding Tuber culosis disease, and as sessing the probability of LTBI, requires a combination of Epidemiological , historical, med ical and diagnostic findings that flash miller be taken in to account when interpreti ng T-Spot.TB refer to the most recent CDC guidance(http:/ www.cdc .gov/nchstp/tb) for detailed recommendations about diagnosing TB infections (inc luding disease) and se lecting persons for frida ting. 1.) A false neg ative result can be c aused by incorrect bl ood sample collecti on or improper handli ng of the specimen, affecting lymph ocyte function.2.) Th e performance of T-Spot.TB has n ot been adequately eval uated with specimens from individuals you nger than age 17 yea rs, in women, and in patients with Hemophilia.3.) A false positive result was obtained for T- Spot.TB when tested in subjects with M . xenopi, M. kans asii, and M. gordonae . While ESAT-8 and CFP- 10 antigens are ab sent from BCG strain s of M. bovis and from most environmental Mycobacteria, i t is possible that a positive T-Spot .TB result may be d ue to infection with M. kansasii, M. sz ulgai, M. gordonae, or M. marinum. [place] tests would be required if the se infections are suspected.4.) A negative test r esult does not exclud e the possibility of exposure to, or infection with M. tuberculosis. P atients with recent exp osure to TB infected individuals exh ibiting a negative T-Sp ot.TB result should b e considered for retesting withi n 6 weeks or if oth er relevant clinic al symptoms indica te possible infect ion.5.) A positive test result does not rule i n active TB disea se; other tests cali uld be performed to co nfirm the diagnosis o f active TB disea se such as sputum smear and culture, PCR an d chest radiography.6.) T-Spot.TB test has not been evaluated in subjects who walsh ve received > 1 mo nth Anti-TB therapy .7.) Refrigerated an d frozen samples are not recommended for use with T-Spot.TB test. Lab Interpretation Abnormal (test code = 24768-3) MD BarrientosCytology [employer] [id number] 17:13:05 Test Item Value Reference Range Interpretation Comments Gross Description (test g8xkxECfLZNgdTYJQD code = 9822320206) XqU7ostcQgUMQmwMOv M5DkfqqtVAzbZR1iFH 0vkYtokTOhlKPyVR8U XGRlZmYxXHBhcGVydz EyMjQwXHBhcGVyaDE1 YVRhVW7cnrilIMsqPI bfQCRcfxS0NLPsrACr H5NsRLOnCY0pdhusZZ C8ZDponH3peyXEIfuk Sv3ckHVgzFzyMqDqSq NoYXJzZXQwXGZuaWwg BPWxWLo1vE4SKagqE4 5ab1M7Yhj2HZSaUVAg Q6LkMQ1qNIPbaBLqD4 0PJqcxIGU4PIWLJrmg TLVvVE9Lz8pyUWDhgE MlPOD0SNeohNIoLSIv ZEDzSVz5BQCpFKesuO WgBF1teYewXwjajAcz q6YwrZPyMJjqDCWaZY BcEFpkQZJzHO8HCjEl WGViWZQ4NzMrNSj8VY u6TH6NHqVtDDFhIEm5 BVTmSGGwPZk1RZbuNZ 7IJCf6YzR7TfGbXOB8 NTYwNyBcXHQgMiBcXG YgQXJpYWwgXFxmcyAx MCBcXGZiIFxcZmwgXF juM48nnHzlgE0dIaup rrYfSPM4ZJUoamWKUh xwbGFpblxlcGljTmVz dERvYzEgDQpcbHRycG FyXGxpbjBccmluMCAN ClxsdHJjaFxjZjFcZn MyMCAxIERpZmYgUXVp froqBBTGHECfO9OuaP 3kY5idFNNfHAGnhpTZ EjOzeGrcWCqdao98YZ V1q2wjuUMuGAhwUszu cFIfazD0UYwVKSSPCU tNVaGmQS8xHVvSP6CA OWwBVtabUNV9ONsozX Y1b0bvaXEdb0l5TRmi IEH6dUXqWBIoHEyony 91IMI6COozMisduRI5 MPoqIvmelZ5qhDAXFO LCYiyUBrdrulSdBI3B CEfZWlPJWA77Cy72WZ JcTFEcgTVkHWavO654 F91pv1EtVOVwa5mgiR VsZHtcKlxmbGRpbnN0 IEhZUEVSTElOSyBuYW 0jRToFDGSFStS1Ka67 XGZsZHJzbHQgXCcxQ3 16UEJsXHypQFg6ndUi RHQea4VlP9GrR6TzBZ FfEbRfQMTfxCcrr4ai aWVsZHtcKlxmbGRpbn J3CPcVWTCZNEyIRlRq TV7jUIuBZ9UYCfZ2Ux I3VtA7NJcazMvyMkfu ejFflHRfGyDTfA4onB ttfE7ueGBwW7yvI0Iz TUDxQoSueTEiXO5SLJ Fam9UvB0M2BEVuEQzn a5baIZMkHQaba9ZvOJ qYRYQRNE4LIA4hcIT6 YUfCMKJBU4vHdVN8Ox RapFZ8E939SNUeUHRa hLDwLIdkH211E0ZsW5 wpLB5hF85iZ5PbwQJo bRXtOZN6HDH7dA5mYM 20ejdhbBdeyOscnjG1 EMDpbgvuzTV6LKRlGD raj7odRQPiTJkxf1Mj RNrXFVUZAY5FMX2ctI M4XVtETUQKZOzgVIJ9 VIxnvGX9u1ekaNZdt2 v6UUllCBP4tJngqPIt blxsdHJjaFxjZjFcZn EzOOXMWdk2KLTCJLUL GQmIRQ2XJMVMDHDBNW 1HDFvBRlIqWTY1VVaa DQG5CaNxKxK5WsV0Qg 0fDTGUCVFGKXkFSG7T KVIMKOXHTI0KQdCiH6 lMRENBUkRfTUVUQURB YGDoBjMZET2fZee5G9 7rl1LvJQBvG0gLUVAC UkRfTUVUQURBVEFfRU 7RZVJCGUMSTF8XSWBU L63YXMLSUZQTX3DKX1 pFOPUkq6KvdOooVqQ7 RlTbRmq4EQh4G1j5S0 2cF9VokKXmgJprciF4 YBPtmpbmgUC9PxH3If D1BrUPbDIziA4tlgBn z88eGV96gnG2ICXjRj beR9o0y9BbjqHcaKD8 O3A8pW9jCQKnD1wdmD H7BVO5ZTj6EOSOTLNA YX8NSNFGX48UNDYERJ DAW5HAXQVOZqKGBRQG M29UBZTREXCET5JRR9 xOYVWLUbZVSMYLU83F GBCNJCLCT9DWFJXQIY NDZuOHJrYBNX7LKMMK YNKDNQ4PGRhXGfCvAS MMV4EZNnPFG8zdAMZS QBIMZZCkBF7YNFvodU aldU4qUFVwW66vf3XS x7OaLIWlFFdjj1ebjN tju0YvjQSoUPhgEDYc xHOqKNlofJ8aMsYit9 neqQs9YZqqejS9FVGf qf1LRuxshL1xBuIev7 osyEl7QNLNOhpidqF6 u8juyDvzw7HjePGuUV 0NCn0= Major Classification (test NFMC/benign code = 9839) Diagnosis (test code = 34) i6cctXIbAXZsvSX4LL LvJZQfw7nsh2PdpWGz cGFyXGpleHBhbmRcbm 56iCU0wQ10VQ7uJHMs KqT8JEFokoM9Lgq6TA FzGAXkqIEeU027e4lf x6xezkOqsME5nXszRN TisfdwQpY7HMteBTAl pumrRIu3CIpwKDWjeJ P2RMSlxTTxZ9XxCSCi FO7pfbv6OJO8CYhuPO JxEwD5HKBeyDPkAJBe uUzeAXxts605DLX8En QeNTAmgwKqhPimvG0l YxXxQFSWFuSUV9XoRU m5vFYgqyOmvW5onTYh JWolvICpQSYahgd1VB GgQd4ubXHnjTwtEK81 QRAntDfgMHvoOU32bM CqOFOxLQEaTBXbe25r VL80XLdbXTX6 Comment (test code = 9835) d7jxhCLrQCMxaHL9KC XeHMJfd9dwv1UyuSAx cGFyXGpleHBhbmRcbm 93uBL8eQ32YB4bIQJb QdL0CCZbfpF2Ytz0CC WpZHXkeZQrT418y9xs y9vneuRrdLM0wKhvNN TdrxuaSqN6UNxwLEAz hyuvZUa1CJuxERRhhP B5YSDvbVBhT7RbBHIk LU8bfln1WRQ2KPjiNP YeNzM0RNCuaUHgOMYq qPipHWqrn094XNB1Nb KyCQBndiOecQlbzU6c ZnMyMCBUaGUgZmxvdy JyrLEkhTT5zsqeZB3e bHlzaXMgKEZDLTIxLT QhMmKmZQtgz8rkb9Wy se7kQZCgqcAztuMiSx 1jZWxsIHBvcHVsYXRp p20hLSS1dOOqobCpec eovBsdHYDdy8AfRYNw HCfhm3Qovs4tNGRkfg 0= Retained/Biomarker Testing p8xwyGPfPIRemYN7TE (test code = 9838) QrNOAty1lvv9YgkFVm cGFyXGpleHBhbmRcbm 72pBE9qO15HY5wGKLq KdR4DGNbjxV0Ako9QT UfUZGlfXAaX200m7sd l6ansaEdxFO8qKyyNY EttymjNvJ1CZnmGTIf nrfeIVn9PKlfSAIfaI X1CSWaeZFhJ0HrKKZi MG5mmcy8VAT3YBgsBX QjMkV1CQJzeOBuOIEy fBcqIPasn701CAR8If JtMOFcipFvxXccuS2g ZnMyMCBTUjogMiBTXH Bhcn0= Informational Points (test q7oczLXdEFGwtWUnRn code = 9836) TsJMAdRBZce3clTETj bGFuZzEwMzNcZnRuYm zhmULwQQYvWmWsi2be t221gOXbu4zyFEAtBd V4mXYlOIYbnNMrP687 KEYmNKzgl1row9BgKU JhsERnq0C5KXUFYWca ODMXCIj1q4cgOfEaQa E1yNNcQWzcA4egurVh nIKkIEEyHHn7wB05EF YwjP7lwFXqUZdqdwDa EyG6JVnpELGjUbK7RJ EjwWXwTSAlO5izTNKb XGdyZWVuMFxibHVlMC D6rWiov4Y6cHXucDJf dHtcZjBcZnMyMiBOb3 NwYWz2gOxhY8PeZTUv SbP0qIOsRSEpIFytOJ LyTXLbskM1zV61PNbx dkK7aHRel4Bak15dx4 35sM5twWSwLQB8UGXw XTCgjHBmCJDgHOE6OF GnfLAcJ8hwSXBnHN0q cmdyMTgwMFxtYXJndD D7ABGryPAfB7RzGSQh KPykOOVpuvc9SpIpQw 4aaTLckEwoSXvwq2nc w6mwmFLuSru1ELUoQg LfYwjpFTiyd6Ely2fp KDOuyp3pEWA7jJHxwY cai7O8yJLuZDLffQIk qrZhNLWkGfZ3NMvkEG 1mun41OFEwMPK0oi0u bGNccGdicmRyaGVhZF hzZ9LiQWIsc128FNCu R1IkAWHcj7M2chZnMr ZcWMXpySX1ifK3KPBo SJr7aSWllvH5ibJkeN FfP6nixE6xGZViUA7t fylhu3uaDDzrZDjyGD PhiBQ0edH5FFXlgAJs L6KnhE2rHIMlUTfjNU Emhhq5OhPbMn6caIQh eTcyMFxzYmtwYWdlXH BnbmNvbnRccGduZGVj XHBsYWluXHBsYWluXG YwXGZzMjRccWxccGxh vE4yApAmOiOhIXjzRN 4zLYApQ2jnwTLqCRGf NMIsH5scYgJthG6rwZ heKZluozQ1OWcwF08e PDF9SVI3gyAmIGEsec VpIIIgBOZbGF7wgABz ZCHcTOTfWQ0tAHF7KN xvcGVkIGFuZCBwZXJm y6WnSK5eGJGxgBUiFP K6QVKbw1CkZ3WvWNR7 WWWnkS9qYSWztDDTDC BNRCBBbmRlcnNvbiBQ MBYhf6qbN2ohNF9tDR ddRh9jCRTflvjwNHSm aWNpbmUuIFRoZXNlIH Dsl0UxEAmxkqPgpm07 FRFkOD2wf9UwN1tlvH KtpBm4MCAwRCTtJSLx i2ZtCJJvxd12IHKeEh hsoKhfOTSxPk1sAk3q DWJtirBlRPB5NsCLKO 0dtbkrlWEzbZtpak7o XHBsYWluXGYyXGZzMj JcbGFuZzEwMzNcaGlj aFxmMlxkYmNoXGYyXG gbM4lwUcMvXsPqIfwm YXJ9 [facility] Glucose [id number] 19:49:50 Test Item Value Reference Interpretation Comments Range POC Glucose (test 154 mg/dL 70-99 H Capillary blood code = 42615-3) samples, e.g . obtained by fingerstick, ma y have inaccurate resu lts in patients with decreased perip heral blood flow. Met hod description: Al l results are rea sured using Electrochemistr y test methodology. Th e glucose in the sample mixes with the reagents on the test strip. The reac tion produces an tessie ctric current. The am ount of current prod uced is proportional to the glucose concentration i n the blood. PO Sample Type (test Capillary code = 9554) Performing Lab (test [facility] [address] [place] code = 86718) [facility] Cli nical Lab, [address], [place] [address]; Reserves Clerk: Betsey Johnson MD Lab Interpretation Abnormal (test code = 94704-2) MD Chaney B Surface [id number] 18:30:51 Test Item Value Reference Range Interpretation Comments Hep Bs Ab-Linn Positive Patient is co nsidered to (test code = be immune to in fection 72986-9) with HBV. ----REFEREN CE VALUE -----Unvaccinat ed: NegativeVaccina jigar: Positive Hep Bs Ab Qn-Linn 1000 mIU/mL --------- REFERE (test code = NCE 5193-8) VALUE -----Unvaccinat ed: <5.0Vaccinated: >=12.0 Test Performed by:[facility] [address] [place], [place] [address]Ziq Director: Sukhwinder Neville M.D. Ph. D.; CLIA# [id number] MD Shiv Watson Core Total [id number] 18:30:50 Test Item Value Reference Range Interpretation Comments HBc Total Ab-Linn (test Positive Negative A If c [facility] code = 16653-5) indicated, t esting for Hepatitis B Cor eIgM antibody is nec essary to differentiat e between acutean d past HBV infection. Test Performed by:[facility] [address] , [place], [place] [address]Tsu Dir el: Alonso asher M.D. Ph.D.; CLIA# [id number] Lab Interpretation Abnormal (test code = 26450-2) MD Shiv Upton [id number] 18:30:27 Test Item Value Reference Range Interpretation Comments HBe Ab-Linn (test Negative Negative Test Perf ormed by:Linn code = 08170-9) [facility] [id number] [employer] [place], [place] [address]Xkg Director: Sukhwinder Neville M.D. Ph. D.; CLIA# [id number] [facility] [id number] 18:12:19 Test Item Value Reference Range Interpretation Comments HBe Ag-Linn (test Negative Negative Test Perf ormed by:Linn code = 87168-2) [facility] [id number] [employer] [place], [place] [address]Raq Director: Sukhwinder Neville M.D. Ph. D.; CLIA# [id number] MD BarrientosBeta 2 Microglobulin, [id number] 17:21:30 Test Item Value Reference Range Interpretation Comments Beta 2 Microglobulin 2.02 See_Comment H ------ ADD CSF (test code = ITIONAL 1950-3) INFORMATION---- -------- -------This frida t has been modified f rom the shared services manager'si nstructi ons. Its perfor angeline characteristics weredetermined by [facility] in a man ner consistent with CLIA requirements. T his test has not been cl eared orapproved by isidoro [place].S. Food and Drug Administration. Test Performed by:[facility] [address] , [place], [place] [address]Wkb Direct or: Alonso asher M.D. Ph.D.; CLIA# [id number] [Automated mes eva] The system [employer] generated this result transmitted ref erence range: 0.70 - 1 .80 mcg/mL. The ref erence range was not u sed to interpret this result as normal/abnor mal. Lab Interpretation Abnormal (test code = 19109-6) MD BarrientosTMP Interpretation Antibody Screen [id number] 15:38:22 Test Item Value Reference Range Interpretation Comments TMP Auto Neg At the present ABSC Interp time, patient (test code = plasma shows no JULYGRACE 7535) evidence of RBC BENITO alloantibodies. Prosper SINGH jigar by: LISETTE SINGH,Dictated Date/Time: 09.23.2020 10:3 8 AM CDT Transcrib ed Date/Time: 09.23.2020 10:3 8 AM CDTElectronical ly Signed By: JENNA IN THONG SINGH, on 09.23.2020 10:3 8 AM MD BarrientosAntibody [id number] 14:09:43 Test Item Value Reference Range Interpretation Comments ABSC. (test code = 890-4) Negative ABSC MD BarrientosPpctaabhBQHEi9891-16-73 14:09:42 Test Item Value Reference Range Interpretation Comments ABORh. (test code = 882-1) A POS MD BarrientosClot Expiration [id number] 14:09:41 Test Item Value Reference Range Interpretation Comments T & S Expiration (test code = 09/26/2020 5318) MD BarrientosHebizgzxBmzhhpywruwp8598-37-96 14:06:10 Test Item Value Reference Range Interpretation Comments Total Cells (test code 100 = 46081-5) Neutrophil % (test 86.0 % 42.0-66.0 H The Neutr ophil count code = 6491) includes Bands. Lymphocyte % (test 2.0 % 24.0-44.0 L code = 6194) Monocyte % (test code 4.0 % 2.0-7.0 = 6422) Eosinophil % (test 1.0 % 1.0-4.0 code = 5520) Metamyelocyte % (test 7.0 % See_Comment H The Nc tamyelocyte code = 740-1) count includes Myelocytes. [Automated mess age] The system [employer] generated this result transmitted ref erence range: <=0.0. T he reference range was not used to int erpret this result as normal/abnormal . Neutrophil Abs (test 19.44 K/uL 1.70-7.30 H code = 6492) Lymphocyte Abs (test 0.45 K/uL 1.00-4.80 L code = 6195) Monocyte Abs (test 0.90 K/uL 0.08-0.70 H code = 6423) Eosinophil Abs (test 0.23 K/uL 0.04-0.40 code = 5521) RBC Morph (test code = Present Normal A 6742-1) PLT Morph (test code = Normal Normal 32648-0) Ovalocyte (test code = Present Not Present A 774-0) Lab Interpretation Abnormal (test code = 73794-8) MD Barrientos.OAX1498-07-25 14:06:08 Test Item Value Reference Range Interpretation Comments WBC (test code = 8034) 22.6 K/uL 4.0-11.0 H RBC (test code = 6932) 3.46 See_Comment L [Aut omated message] The system [employer] generated this result transmitted ref erence range: 4.50 - 6 .00 M/uL. The refer ence range was not u sed to interpret this result as normal/abnor mal. Hgb (test code = 5898) 9.9 See_Comment L [Aut omated message] The system [employer] generated this result transmitted ref erence range: 14.0 - 1 8.0 gm/dL. The refe rence range was not u sed to interpret this result as normal/abnor mal. Hct (test code = 5860) 29.7 % 40.0-54.0 L MCV (test code = 6222) 86 fL 82-98 MCH (test code = 6220) 28.6 pg 27.0-31.0 MCHC (test code = 6221) 33.3 See_Comment [Au tomated message] The system [employer] generated this result transmitted ref erence range: 31.0 - 3 6.0 gm/dL. The refe rence range was not u sed to interpret this result as normal/abnor mal. RDW-SD (test code = 45.6 fL 35.1-46.3 6972) RDW-CV (test code = 14.7 % 12.0-15.5 6971) Platelet count (test 149 K/uL 140-440 code = 6832) MPV (test code = 6282) 9.6 fL 4.0-10.4 INRBC (test code = 0.0 % See_Comment The INRBC (instrument 5974) NRBC) value ref lects the enumeration of nucleated red b lood cells contained in a 200uL sampleof whole blood analyzed by the instrument. Thi s value maydiffer from the NRBC value reported in a m anual differential,wh ich is based on a 100 cell differential. [Automated mess age] The system [employer] generated this result transmitted ref erence range: <=0.0. T he reference range was not used to int erpret this result as normal/abnormal . Lab Interpretation Abnormal (test code = 55140-8) MD BarrientosFlow Cytometry Specimen Collection -[id number] 13:48:34 Test Item Value Reference Range Interpretation Comments Flow Cytometry Yes Test performe d by:The (Received) (test code [facility] = 8319) [place] [facility]imoFlow Cyto metry [id number] [place] [address] Beaker Ap Link (test [id number] code = 11194) MD [id number] 11:41:17 Test Item Value Reference Range Interpretation Comments LDH (test code = 6111) 1060 U/L 135-225 H Resul ts greater than 1651 U/L may no t be reliable due to matrix effect w ith extended diluti on as it exceeds the shared services manager s recommended l imit. Caution should be exercised when interpreting matute ch values and done in conjunction wit h clinical contex t. Lab Interpretation (test Abnormal code = 37377-9) MD Isabel [id number] 11:30:49 Test Item Value Reference Range Interpretation Comments Anion Gap (test code 9 See_Comment [Autom ated message] The = 7812) system which ge nerated this result transmit jigar reference range : 4 - 14 mEq/L. The refe rence range was not used to interpret this result as normal/abnormal . MD BarrientosChloride [id number] 11:30:48 Test Item Value Reference Range Interpretation Comments Chloride (test code = 110 See_Comment H [Auto mated message] 5279) The system [employer] generated this result transmitted ref erence range: 98 - 107 mEq/L. The refe rence range was not u sed to interpret this result as normal/abnor mal. Lab Interpretation (test Abnormal code = 74318-0) MD BarrientosFractionated [id number] 11:30:47 Test Item Value Reference Range Interpretation Comments Bili Total (test 0.6 mg/dL See_Comment Indocyanine Green (ICG) code = 5096) may cause false ly elevated biliru bin results. Total and direct bilirubin must not be measured from s amples containing indo cyanine green. False el evation of total bilirubin can be seen in patient s with IgG concentrations above 28 g/L. [Automate d message] The system [employer] generated this result transmitted ref erence range: <=1.2. T he reference range was not used to interpr et this result as normal/abnormal . Bili Direct (test 0.2 mg/dL See_Comment Indocyanin e Green (ICG) code = 5094) may cause false ly elevated biliru bin results. Total and direct bilirubin must not be measured from s amples containing indo cyanine green. [Automat ed message] The sy stem which generated this result transmitted ref erence range: <=0.3. T he reference range was not used to interpr et this result as normal/abnormal . Bili Indirect (test 0.4 mg/dL 0.0-0.9 code = 5095) MD BarrientosGsrgbzirRdotrsxhl6379-05-04 11:30:46 Test Item Value Reference Range Interpretation Comments Potassium Lvl (test 3.7 See_Comment [Automa jigar message] The code = 6854) system which ge nerated this result tra nsmitted reference range : 3.5 - 5.1 mEq/L. The reference range was not u sed to interpret this result as normal/abnormal . MD BarrientosGlomerular Filtration [id number] 11:30:45 Test Item Value Reference Range Interpretation Comments eGFR-AA (test code 80 See_Comment Normal eG FR: >= 60 = 8062) mL/min/1.73 m2N ote: The eGFR is calculated u sing the CKD-EPI equatio n. The eGFR declines with a ge. eGFR <60 mL/min/1.73 m2 is considered as "decreased". This equation should only be used for patients 18 and older. According to th e National Kidney Foundati on's Kidney Disease Outcome Quality Initiative (KDO QI) classification and 2012 Kidney Disease Improving Global Outcomes (KDIGO) Clinical Practi ce Guideline, the stage of CK D should be categorized bas ed on estimated GFR. Stage Description GFR mL/min/1.73 m21 Normal or high GFR >=902 Mildly decrease d GFR 60-893a M ildly to moderately decr eased GFR 45-593b Moderat zara to severely decrea sed GFR 30-444 Severely decreased GFR 15-295 Kid jose failure <15 [Ferfics message] The system [employer] generated this result tra nsmitted reference range : >=60 mL/min/1.73 sq. m. The reference range was not used to interpret th is result as normal/abnormal . eGFR-CHRISS (test code 69 See_Comment Normal e GFR: >= 60 = 8063) mL/min/1.73 m2N ote: The eGFR is calculated u sing the CKD-EPI equatio n. The eGFR declines with a ge. eGFR <60 mL/min/1.73 m2 is considered as "decreased". This equation should only be used for patients 18 and older. According to th e National Kidney Foundati on's Kidney Disease Outcome Quality Initiative (KDO QI) classification and 2012 Kidney Disease Improving Global Outcomes (KDIGO) Clinical Practi ce Guideline, the stage of CK D should be categorized bas ed on estimated GFR. Stage Description GFR mL/min/1.73 m21 Normal or high GFR >=902 Mildly decrease d GFR 60-893a M ildly to moderately decr eased GFR 45-593b Moderat zara to severely decrea sed GFR 30-444 Severely decreased GFR 15-295 Kid jose failure <15 [Automa Miira message] The system [employer] generated this result tra nsmitted reference range : >=60 mL/min/1.73 sq. m. The reference range was not used to interpret th is result as normal/abnormal . MD BarrientosSodium [id number] 11:30:44 Test Item Value Reference Range Interpretation Comments Sodium Lvl (test code 145 See_Comment [Auto mated message] The = 7333) system which ge nerated this result tra nsmitted reference range : 136 - 145 mEq/L. The refe rence range was not used to interpret this result as normal/abnormal . MD BarrientosUric [id number] 11:30:43 Test Item Value Reference Range Interpretation Comments Uric Acid (test code = 7955) 5.4 mg/dL 3.4-7.0 MD BarrientosMagnesium [id number] 11:30:42 Test Item Value Reference Range Interpretation Comments Magnesium (test code = 6359) 2.1 mg/dL 1.6-2.6 MD BarrientosAlkaline [id number] 11:30:41 Test Item Value Reference Range Interpretation Comments Alk Phos (test code = 4768) 64 U/L 40-129 MD BarrientosAlanine [id number] 11:30:40 Test Item Value Reference Range Interpretation Comments ALT (test code = 12 U/L See_Comment [Automated message] The 4707) system which ge nerated this result transmit jigar reference range : <=41. The reference range was not used to interpr et this result as sonido l/abnormal. MD Barrientos.Serum [id number] 11:30:39 Test Item Value Reference Range Interpretation Comments Creatinine (test code = 5399) 1.07 mg/dL 0.67-1.17 MD Ba[id number] 11:30:38 Test Item Value Reference Range Interpretation Comments BUN (test code = 5055) 24 mg/dL 6-23 H Lab Interpretation (test code = Abnormal 86172-4) MD BarrientosGlucose, [id number] 11:30:36 Test Item Value Reference Range Interpretation Comments Glucose Random (test 123 mg/dL 70-199 Effecti ve 10/21/15, the code = 9360) glucose referen ce intervals have been updated based o n [place] [employer] tia delines (Standards of M edical Care in Diabete s 2016. Diabetes Care 2 016; 39: S13-S22).Fastin g blood glucose:Normal: 70 99 mg/dLImpaire d fasting glucose (increa sed risk for diabetes or pre-diabetes): 100 125 mg/dLDiabet es mellitus: >/=1 26 mg/dL Random blood glucose:Normal: 70 199 mg/dLNote: Random glucose >100 mg /dL is associated with increased risk for diabetes MD BarrientosPhosphorus [id number] 11:30:35 Test Item Value Reference Range Interpretation Comments Phosphorus (test code = 6817) 3.2 mg/dL 2.5-4.5 MD BarrientosCalcium [id number] 11:30:34 Test Item Value Reference Range Interpretation Comments Calcium Lvl (test code = 5258) 8.4 mg/dL 8.4-10.2 MD BarrientosAlbumin [id number] 11:30:33 Test Item Value Reference Range Interpretation Comments Albumin Lvl (test code = 3.1 See_Comment L [A utomated message] 9595) The system [employer] generated this result transmitted ref erence range: 3.5 - 5. 2 gm/dL. The refe rence range was not u sed to interpret this result as normal/abnor mal. Lab Interpretation (test Abnormal code = 63512-2) MD BarrientosAspartate [id number] 11:30:32 Test Item Value Reference Range Interpretation Comments AST (test code = 26 U/L See_Comment [Automated message] The 5271) system which ge nerated this result transmit jigar reference range : <=40. The reference range was not used to interpr et this result as sonido l/abnormal. MD BarrientosCarbon Dioxide [id number] 11:30:31 Test Item Value Reference Range Interpretation Comments CO2 (test code = 26 See_Comment [Automated message] The 6676) system which ge nerated this result transmit jigar reference range : 22 - 29 mEq/L. The refe rence range was not used to interpret this result as normal/abnormal . MD BarrientosUric Acid [id number] 10:54:26 Test Item Value Reference Range Interpretation Comments Uric MICHELLE (test code = 7956) 5.4 mg/dL 3.4-7.0 MD BarrientosCalcium Ionized, [id number] 10:37:40 Test Item Value Reference Range Interpretation Comments V Ion Ca (test code = 31454-0) 1.13 mmol/L 1.15-1.29 L Lab Interpretation (test code = Abnormal 32563-1) MD BarrientosHIV-1 DNA and RNA Qual [id number] 01:05:28 Test Item Value Reference Range Interpretation Comments HIV-1 Undetected Undetected Repeat testing in 1 to 2 months DNA/RNA is recommended for those atrisk QualOropeza of HIV-1 infect ion. (test code ----ADDITIONAL = 56643) INFORMATION---- Th is test was per formed using the [employer] RealTime HIV-1Qualitative assay ([employer] [place]) .This test was developed and i ts performance characteristics determined by [facility] in a manner consistent with CLGenesisequirement s. This test has not been cleare d or approved bythe U.S. Food and Drug Administration. Test Performed by:[facility] [address] [place], [place] [address]Nts Direct or: Alonso Neville M.D. Ph. D.; CLIA# [id number] MD BarrientosCell Count w/ Diff [id number] 21:19:32 Test Item Value Reference Range Interpretation Comments Type CSF (test code = Tap When r eviewing the 22656-7) cell count and differential re sults, clinicians celestino whalen consider the le ngth of time between spinal fluid collection and testing and the clinical condit ion of the patient. Appear CSF (test code = CLEAR CLEAR When reviewing the 47225-8) cell count and differential re sults, clinicians caliu marlee consider the le ngth of time between spinal fluid collection and testing and the clinical condit ion of the patient. Color CSF (test code = Colorless Colorless When reviewing the 47577-6) cell count and differential re sults, clinicians caliu marlee consider the le ngth of time between spinal fluid collection and testing and the clinical condit ion of the patient. WBC CSF (test code = 5 See_Comment When re viewing the 806-0) cell count and differential re sults, clinicians caliu marlee consider the le ngth of time between spinal fluid collection and testing and the clinical condit ion of the patient. [Automated mess age] The system [employer] generated this result transmitted ref erence range: 0 - 5 /m cL. The reference r louis was not used to interpret this result as normal/abnor mal. RBC CSF (test code = 13 See_Comment H When re viewing the 792-2) cell count and differential re sults, clinicians shou ld consider the le ngth of time between spinal fluid collection and testing and the clinical condit ion of the patient. [Automated mess age] The system [employer] generated this result transmitted ref erence range: 0 - 0 /m cL. The reference r louis was not used to interpret this result as normal/abnor mal. Tot Cells CSF (test 100 When rev iewing the code = 69632-8) cell count a nd differential re sults, clinicians shou ld consider the le ngth of time between spinal fluid collection and testing and the clinical condit ion of the patient. Neut CSF (test code = 0 % 0-5 When r eviewing the 07257-9) cell count and differential re sults, clinicians shou ld consider the le ngth of time between spinal fluid collection and testing and the clinical condit ion of the patient. Lymph CSF (test code = 82 % 28-96 When reviewing the 16592-2) cell count and differential re sults, clinicians shou ld consider the le ngth of time between spinal fluid collection and testing and the clinical condit ion of the patient. Histiocyte CSF (test 18 % 16-56 When re viewing the code = 99628-4) cell count a nd differential re sults, clinicians shou ld consider the le ngth of time between spinal fluid collection and testing and the clinical condit ion of the patient. Microorganisms CSF None Seen None Seen When revi osuna the (test code = 9393) cell coun t and differential re sults, clinicians shou ld consider the le ngth of time between spinal fluid collection and testing and the clinical condit ion of the patient. Lab Interpretation Abnormal (test code = 89380-1) [facility] B-Cell Lymphoma Panel Collection, [id number] 16:06:33 Test Item Value Reference Range Interpretation Comments Flow Cytometry (Received) (test code = Yes 8382) MD BarrientosGlucose [id number] 15:38:52 Test Item Value Reference Range Interpretation Comments Glucose CSF (test code = 81 mg/dL 40-70 H 5697) Type CSF (test code = Tap When r eviewing the 7672) cell count and differential re sults, clinicians celestino ld consider the le ngth of time between spinal fluid collection and testing and the clinical condit ion of the patient. Lab Interpretation (test Abnormal code = 07795-8) MD BarrientosProtein [id number] 15:38:50 Test Item Value Reference Range Interpretation Comments Protein CSF (test 33 mg/dL 15-45 code = 6894) Type CSF (test code Tap When rev iewing the cell = 7672) count and diffe rential results, clinic ians should consider the length of time between spinal fluid co llection and testing and the clinical condit ion of the patient. MD BarrientosFL Lumbar Puncture with IT [id number] 15:16:31 Technically successful fluoroscopic-guided lumbar puncture for CSF sampling and intrathecal administration of chemotherapy. Interface, Radiology Results In - 09/22/2020 11:01 AM CDT FULL RESULT:Examination: Fluoroscopic guided lumbar puncture for CSF sampling and administration of intrathecal chemotherapy on 09/22/2020 9:44 AMClinical History: Diffuse high grade B-cell lymphoma.Indication: Cerebrospinal fluid sampling with administration ofantineoplastic intrathecal chemotherapy, failed bedside LP on 09/21/20.Comparison: None.Proceduralist: Rosario JIMENEZ-CAssistant: Elisa Shankar HN-KAhq-Xgwgghyvd:Consent obtained: The risks and benefits of fluoroscopic-guided lumbar puncture were discussed with the patient and informed consent wasreviewed.[place] protocol (time out) performed: Yes Sedation/Anesthesia:Local anesthesia: 10 mL lidocaine 1%.Technique: The patient was placed prone on the radiographic table and prepped and draped in the usual aseptic manner. Lidocaine 1% was used as the local anesthetic. Fluoroscopically guided lumbar puncture was performed at the L3-L4 level, using a 20-gauge 5 inch Quincke spinal needle. Efflux of clear CSF was identified. CSF samples were collected and sent to the laboratory as per clinical service. The prescribed chemotherapy methotrexate 12 mg in 5 mL of preservative free normal saline, was administered intrathecally without incident. The spinal needle was then removed and local hemostasis was achieved by direct pressure. A Bandage was applied at the site of the puncture.Findings: Approximately 6 mL of clear CSF was collected in 3 tubes as per the clinical service's request (3 mL, 2 mL, and 1 mL) and transferred to the laboratory for analysis.Estimated blood loss: None.Immediate Complications: None.Disposition: The patient tolerated the procedure well and was observed in the [DI holding area as per protocol, transferred to the recovery area].IMPRESSION:Technically successful fluoroscopic-guided lumbar puncture for CSF sampling and intrathecal administration of chemotherapy.MD Taylorpatinathaniel B Total Ig Core Ab (SCREENING) (anti-HBc total Ig; HBcAb total Ig)2020-09-22 12:29:53 Test Item Value Reference Range Interpretation Comments HBcAb Received (test See Note HBcAb w as sent to a code = 42088) reference lab for testing. Expec t results on Hepa titis B Core Total Ab w ithin 96 hours. MD BarrientosHTLV I/II Ab Screen with [id number] 03:31:41 Test Item Value Reference Range Interpretation Comments HTLV I/II Ab Reactive Negative A Confirmatory te st is [facility] (test code order ed. Confirmatory = 90723-9) test is thedefi nitive test for HTLV-I /-II infection statu s. Test Performed by:[facility] [address], [place], [place] [address]Teo Dir el: Alonso asher M.D. Ph.D.; CLIA# [id number] Lab Interpretation Abnormal (test code = 96119-7) MD BarrientosHBV DNA [id number] 22:52:51 Test Item Value Reference Range Interpretation Comments HBV DNA [facility] Undetected Undetected IU/mL Result in log IU/mL is (test code = Undetected. 02082-9) ----ADDITIO NAL INFORMATION---- ----The quantif ication range of this a ssay is 10 to1,000,000,000 IU/mL (1.00 log to 9. 00 log IU/mL). Testing was performed using the melissa HBV test ([employer] with the melissa 6800 System. Test Pe rformed by:[place] [id number] Director: Sukhwinder Neville M.D. Ph. D.; CLIA# [id number] MD BarrientosPartial Thromboplastin [id number] 22:31:18 Test Item Value Reference Range Interpretation Comments PTT (test code = 29.9 See_Comment [Automated message] The 6773) system which ge nerated this result transmit jigar reference range : 24.7 - 36.8 second(s). The reference range was not used to interpr et this result as sonido l/abnormal. MD BarrientosProthrombin [id number] 22:31:17 Test Item Value Reference Range Interpretation Comments PT (test code = 6746) 14.1 See_Comment H [Auto mated message] The system [employer] generated this result transmitted ref erence range: 11.5 - 1 3.9 second(s). The reference range was not used to int erpret this result as normal/abnormal . INR (test code = 5973) 1.16 0.90-1.10 H Lab Interpretation (test Abnormal code = 67677-8) MD BarrientosCardiac [id number] 22:28:41 Test Item Value Reference Range Interpretation Comments CK (test code = 5206) 69 U/L 39-308 CK MB (test code = 3.2 ng/mL See_Comment [Automat ed message] 5919) The system [employer] generated this result transmitted ref erence range: <=10.4. The reference range was not used to int erpret this result as normal/abnormal . Troponin T (test code = 28 ng/L See_Comment H < 19 ng/L 9384) S uggest retest at 3 to 6 hours later to rule out myocardial infarction >= 1 9 to <=52 ng/L Possible myocar dial injury. Sugges t retest at 3 jessi rs. - a change of < 20 ng/L, retest at 6 hours - a gasper nge of >= 20 ng/L, suggestive of myocardial infarction > 52 ng/L Sugges tive of myocardial infarction Crit ical value will be reported when c Grace is > 52 ng/L and o nly reported for th e first in a seri es. Hemolyzed speci mens with Hemolysis Index >100 (100 mg/dl or moderate hemoly sis) may cause interferences a nd falsely low res ults. [Automated mess age] The system [employer] generated this result transmitted ref erence range: <=18. Th e reference range was not used to int erpret this result as normal/abnormal . Lab Interpretation Abnormal (test code = 19391-3) MD BarrientosCMV Ab IgG+IgM Path [id number] 21:16:58CMV Panel PRPositive IgG with low IgM suggests previous infection. IVIG can give false positivity.High titers of IgG can give false negative IgM. Therefore, active disease ispossible but less likely with this pattern.Reviewed and Electronically signed by Pathologist:BRIAN MCCALL MD #[id number] Comment: Test performed by an immunoassay intended for the qualitative detection of IgG and IgM antibodies to Cytomegalovirus (CMV) in human serum. When equivocal results are obtained, another specimen should be usrzdlabp14-12 days later. BRIAN MCCALL MD - [id number] by: MD Matthew LUCERO [id number] Date/Time: 09.21.2020 16:16 PM CDT Transcribed Date/Time: 09.21.2020 16:16 PM CDTElectronically Signed By: BRIAN MCCALL MD - [id number] on09.21.2020 16:16 PM [facility] GLENDALEMD AndersonLumbar puncture with chemo [id number] 20:53:00 Estella Priest NP 09/21/2020 4:07 PM Lumbar puncture with chemo injection Date/Time: 13:53 PM Provider Information:Authorized by: Kristina Blake MD PhD Performed by: Estella Priest NP Pre-Procedure Note:Consent obtained: yesUniversal protocol (time-out) performed: yes Patient Diagnosis:Pre-procedure diagnosis: Diffuse Large B-cell LymphomaPost-procedure diagnosis: unchanged Indications:Indication: prophylaxis Anesthesia:Anesthesia: local infiltrationLocal anesthetic: lidocaine 1% without epinephrineAnesthetic total (ml): 5 Pre-medications:Pre-medications used?: no IV Fluids:IV fluids administered: no Sedation:Patient sedated?: no Procedure Details:Preparation: patient was prepped and draped in usual sterile fashionLumbar space: L4-L5 interspacePatient's position: sittingNeedle gauge: 22Needle type: Quincke needleNeedle length (in): 3.5Number of attempts: 3 or moreEstimated bloodloss: minimalPost-procedure: site cleaned and adhesive bandage appliedComplications: yesComplications noted: Patient experienced right leg nerve pain "shooting pain"Patient instructed to lie flat for (hours): 2 hours Patient Disposition:Disposition: remain in inpatient bed Comments:Failed procedure: at tempted 2x in first spot and 1x above that with patient reporting leg nerve pain both spots. Arranged in fluoroscopy.MD BarrientosCMV Ab IgG+[id number] 20:19:53 Test Item Value Reference Range Interpretation Comments CMV IgM Int (test code = 5219) Negative Negative CMV IgG Int (test code = 5217) Positive Negative A Lab Interpretation (test code = Abnormal 43473-5) MD BarrientosCytogenetics Specimen Collection -[id number] 17:21:02 Test Item Value Reference Range Interpretation Comments [place] Link (test [id number] Collect ion date/time code = 32288) has been modif ied to: 11:53:00. Prev ious collection date/time: 11:53:00.Shamarc ijgar from [id number] [NA] on 09/21/20 12: 21:01 CDT by Beba Mckeon. Cytogenetics (Received) Yes Kyra ection date/time (test code = 8304) has been modified to: 11:53:00. Prev ious collection date/time: 11:53:00.Shamarc jigar from Yes [NA] o n 09/21/20 12:21: 01 CDT by Beba Mckeon. MD BarrientosTMP HIV 1/2 Ag&Ab Path [id number] 17:39:04 Test Item Value Reference Range Interpretation Comments HIV 1/2 Ag&Ab Negative for Interp (test HIV-1 antigen and code = 9394) HIV-1/HIV-2 ____KIMBERLY antibodies. No MARLEN,Dictate d by: laboratory JUAN J GEE, Violet evidence of HIV Date/Time: 0 09.20.2020 infection. If 12:39 PM CDT acute HIV Transcribed Marck e/Time: infection is 09.20.2020 12:3 9 PM suspected, CDTElectronical ly Signed consider testing By: JERICHO GEE, on for HIV-1 RNA. 09.20.2020 12 :39 PM MD BarrientosHepatitis C Virus RNA Detect/[id number] 03:20:30 Test Item Value Reference Range Interpretation Comments HepC RNA PCR Undetected Undetected IU/mL Result in l og IU/mL is [facility] (test Undetected. code = 5881) ----ADDITIO NAL INFORMATION---- ----The quantif ication range of this a ssay is 15 to 100,000,000I U/mL (1.18 log to 8.00 log IU/mL). Testing was per formedusing the melissa HCV t est ([employer]with the c jabier 6800 System. Test Pe rformed by:[place] [id number] Director: Sukhwinder Neville M.D. Ph. D.; CLIA# [id number] MD BarrientosHIV-1/2 Antigen and Antibodies, Fourth Wvwrxjiymr3336-24-03 23:43:58 Test Item Value Reference Range Interpretation Comments HIV 1/2 Ag & Ab, Non Reactive Non Reactive Performed a t: 4th Gen (test code [facility] = [id number] MD BarrientosUS [id number] 22:00:47 No hydronephrosis. I personally reviewed these image(s) along with the resident's/fellow's interpretations, certify that if a procedure was performed I was physically present, and agree with the final report.Interface, Radiology Results In - 09/19/2020 5:02 PM CDT FULL RESULT:Examination: US RENAL, 09/19/2020 4:28 PMClinical History: Diffuse high grade B-cell lymphomaIndication: Increased Creatinine LevelComparison: None available.Technique: Grayscale and color Doppler ultrasound of the kidneys and urinary bladder.Findings:Left kidney: 8.8 cm in length. No masses, stones, or hydronephrosis.Right kidney: 8.7 cm in length. No masses, stones, or hydronephrosis.Urinary bladder: Unremarkable IMPRESSION:No hydronephrosis.I personally reviewed these image(s) along with the resident's/fellow's interpretations, certify that if a procedure was performed I was physically present, and agree with the final report.MD BarrientosTMP RPR Path Interpretation 2020-09-19 21:45:35 Test Item Value Reference Interpretation Comments Range TMP RPR Path The Rapid Interpretation Plasma Reagin (test code = (RPR) assay is TONA RLY 396488) negative. If a Nivia GEE ed by: syphilis JUAN J infection is Violet GEE suspected, Date/Time: 08.26 please perform 16:45 PM CDT a Treponemal Transcribed Marck e/Time: specific 09.19.2020 16:4 5 PM screening CDTElectronical ly assay. Signed By: MARGARITA GEE on 08.26 16:45 PM MD BarrientosUrinalysis with [id number] 19:41:44 Test Item Value Reference Range Interpretation Comments UA WBC (test <1 See_Comment [Automated code = 7904) message] The system which generated this result transmitted reference range : 0 - 2 /HPF. The reference range was not used to interpret this result as normal/abnormal . UA RBC (test 1 See_Comment [Automated code = 7891) message] The system which generated this result transmitted reference range : 0 - 2 /HPF. The reference range was not used to interpret this result as normal/abnormal . UA Mucous (test NOT SEEN Not Seen-Trace code = 7887) /HPF UA Bacteria NOT SEEN NOT SEEN /HPF (test code = 7870) UA Squam Epi NOT SEEN None-Occasional (test code = /HPF 7896) DARCI (test code Some reporting = DARCI) parameters within the Urinalysis test have changed due to the implementation of new instrumentation in the [facility], allowing greater sensitivity of measurement. Urinalysis results reported by the [facility] using existing instrumentation, as well as Urinalysis testing performed manually or by backup methodology at the [facility] will remain relatively unchanged. New reporting parameters and units will now be reported for all campuses. MD BarrientosUrinalysis w/Microscopic if [id number] 19:38:42 Test Item Value Reference Range Interpretation Comments UA Color (test code = 7877) Yellow Straw-Yellow UA Appear (test code = 7868) Clear Clear UA Glucose (test code = 7881) 50 mg/dL NEG A UA Bili (test code = 7871) NEG NEG UA Ketones (test code = 7884) NEG NEG mg/dL UA Spec Grav (test code = 7894) 1.015 1.003-1.035 UA Blood (test code = 7872) NEG NEG UA pH (test code = 7909) 6.0 5.0-9.0 UA Protein (test code = 7890) NEG NEG mg/dL UA Urobilinogen (test code = 7903) NEG NEG UA Nitrite (test code = 7888) NEG NEG UA Leuk Est (test code = 7886) NEG NEG Lab Interpretation (test code = Abnormal 53243-6) MD Barrientos Hepatitis C Virus Ab Screen, Reflex HCV [id number] 17:27:33 Test Item Value Reference Range Interpretation Comments HCV Ab Screen-[place]inn (test Reactive Negative A Sup plemental testing code = 67593-8) for HCV RNA is ordered to rule outactive HCV infection.Signa l-to-c utoff ratio is >=8.00. Test Performed by:Loree arguello [facility] [place] [address], [place], [place] [address]Thl Dir el: Alonso asher M.D. Ph.D.; CLI A# [id number] Lab Interpretation (test Abnormal code = 10352-7) MD Taylorpatitis B Surface Ag w/[id number] 17:07:31 Test Item Value Reference Range Interpretation Comments Hep Bs Ag-[place]inn Negative Negative Test Perform ed by:[place] (test code = [facility] - 5196-1) [place] [address] , [place], [place] [address]Tau Director: Sukhwinder Neville M.D. Ph. D.; CLIA# [id number] MD Johnston Plasma Reagin (RPR) [Syphilis SCREENING]2020-09-19 08:01:35 Test Item Value Reference Range Interpretation Comments RPR Screening (test code = Non Reactive Non Reactive 323153) MD BarrientosCT Chest Pulmonary Embolism with [id number] 02:27:31No CT evidence of pulmonary embolism. Enlarged lymph nodes in the lower left neck and left axilla. Interface, Radiology Results In - 09/18/2020 9:30 PM CDT FULL RESULT:Examination: CT CHEST PULMONARY EMBOLISM W CONTRAST, 09/18/2020 9:13 PMClinical History: Diffuse high grade B-cell lymphomaIndication: Chest painComparison: Radiographs dated and PET/CT dated 09/16/2020Technique: Spiral CT of the chest is performed using intravenous contrast.Findings: Pulmonary arteries: There is no CT evidence of pulmonary embolism.Tubes and Lines:Right PICC line is present with tip terminating in the superior vena cava.Heart and Mediastinum: Theheart is stable in size. There is no pericardial effusion. Atherosclerotic calcifications are present in the thoracic aorta and [place] coronary arteries. Postsurgical changes related to coronary arterygrafting are again present.Pleura: There is no pneumothorax or pleural effusion.Lungs and Airways: The central airways are patent. Emphysema is present.Bones and Soft Tissues: Enlarged lymph nodes are present in the lower left neck and left axilla. The visualized osseous structures are unchanged.UpperAbdomen: Evaluation of the upper abdomen is limited by technique. The visualized upper abdomen is unc hanged.IMPRESSION:No CT evidence of pulmonary embolism.Enlarged lymph nodes in the lower left neck and left axilla.MD Gil Brain with and without Ckcaqmxm7884-64-91 01:56:59 No evidence of acute intracranial finding including evidence of mass, hemorrhage, or recent infarction. Age-indeterminate but likely chronic area of encephalomalacia and hemosiderin staining involvingthe LEFT frontal lobe which could be due to prior infarction.Interface, Radiology Results In - 09/18/2020 8:59 PM CDT FULL RESULT:Examination: MRI BRAIN W WO CONTRAST on 09/18/2020 8:44 PMClinical History: Diffuse high grade B-cell lymphomaIndication: Not for stroke, trauma, headache, sinusitis, or syncope, Initial stagingComparison: PET/CT September 16, 2020.Technique: MRI of the brain with and without contrast.Findings:The study is degraded bymotion artifact. There is a focal region of hemosiderin staining and encephalomalacia involving the LEFT superior frontal lobe is identified.There is no evidence of mass, recent hemorrhage or recent infarction. There are scattered T2 white matter hyperintensities which are nonspecific and may represent microvascular ischemic changes.The brain parenchyma is otherwise unremarkable.The ventricles, sulciand cisterns are within normal limits and stable.The major flow voids of the skull base are intact.The extracranial structures are unremarkable. IMPRESSION:No evidence of acute intracranial finding including evidence of mass, hemorrhage, or recent infarction.Age-indeterminate but likely chronic area of encephalomalacia and hemosiderin staining involving the LEFT frontal lobe which could be due to prior infarction.MD BarrientosFerritin [id number] 20:23:18 Test Item Value Reference Range Interpretation Comments Ferritin Lvl (test code = 5608) 315 ng/mL 30-400 MD BarrientosTransferrin with [id number] 20:17:24 Test Item Value Reference Range Interpretation Comments Transferrin (test code = 197 mg/dL 200-360 L 7653) TIBC (test code = 7532) 276 See_Comment [Au tomated message] The system [employer] generated this result transmit jigar reference range : 250 - 450 mcg/dL. T he reference range was not used to interpret this result as normal/abnormal . Lab Interpretation (test Abnormal code = 35906-4) MD BarrientosIron [id number] 20:17:23 Test Item Value Reference Range Interpretation Comments Iron (test code = 59 See_Comment [Automate d message] The 6085) system which ge nerated this result transmit jigar reference range : 59 - 158 mcg/dL. The ref erence range was not used to interpret this result as normal/abnormal . MD BarrientosPTH [id number] 20:12:22 Test Item Value Reference Range Interpretation Comments PTH Intact (test code = 6769) 157.2 pg/mL 15.0-65.0 H Lab Interpretation (test code = Abnormal 87034-9) MD BarrientosPeripheral Smear for Bone [id number] 19:36:57 Test Item Value Reference Range Interpretation Comments Peripheral Smear (test code = 4273) PSMEAR MD BarrientosHepatitis B Surface [id number] 16:31:07 Test Item Value Reference Range Interpretation Comments HBsAg Received (test See Note HBsAg w as sent to a code = 18190) reference lab for testing. Expec t results on Hepa titis B Surface Antigen w/ Confirm within 96 hours. MD BarrientosXR Chest 1 View Post [id number] 13:02:26Right upper extremity PICC tip overlies the caudal superior vena cava below the level of the marcus.I personally reviewed these image(s) along with the resident's/fellow's interpretations, certify that if a procedure was performed I was physically present, and agree with the final report.Interface, Radiology Results In - 09/18/2020 8:04 AM CDTFormatting of this note might be different from the origi nal.FULL RESULT:Examination: XR CHEST 1 VW POST IMPLANT, 09/18/2020 1:12 AMClinical History: Diffuse high grade B-cell lymphomaIndication: Confirm PICC placementComparison: Whole body PET/CTTechnique: Single portable anteroposterior radiograph of the chest.Findings:Right upper extremity PICC tip overlies the caudal superior vena cava below the level of the marcus. Median sternotomy wires noted.The lungs are normal. There is no pleural effusion or pneumothorax. There is no mediastinal or hilar adenopathy. Cardiac silhouette is normal. The apparent air under the right hemidiaphragm is due to the colonwhich is better seen on body PET/CT from 09/16/2020IMPRESSION:Right upper extremity PICC tip overliesthe caudal superior vena cava below the level of the marcus.I personally reviewed these image(s) along with the resident's/fellow's interpretations, certify that if a procedure was performed I was physically present, and agree with the final report.MD BarrientosConfirm [id number] 22:43:56 Test Item Value Reference Range Interpretation Comments ABORh Confirm. (test code = 882-1) A POS MD BarrientosEchocardiogram 2D [id number] 22:36:42 Test Item Value Reference Range Interpretation Comments EF (test code = 60 [id number]) PXN (test code Interface, Radiology Results = PXN) In - 09/17/2020 5:37 PM CDT Echocardiographic ReportInterpretation SummaryA complete two-dimensional transthoracic echocardiogram was performed (2D, M-mode, Spectral and color Doppler). There is no comparison study available.Normal left ventricular size and systolic function.LV ejection fraction calculated using the bi-plane method of disks is 60 %.The RV is dilated.There is severe tricuspid regurgitation.There is no pericardial effusion.Left Ventricle:Normal left ventricular size and systolic function. LV ejection fraction calculated using the bi-plane method of disks is 60 %. Flattened septum is consistent with RV pressure/volume overload.I WMSI = 1.00 % Normal = 100 Segments SizeX - Cannot 2 - 1-2 smallInterpret 1 - Normal Hypokinetic 3 - Akinetic 4 - Dyskinetic3-5 moderate5 - Aneurysmal 6-14 large 15-16 sewckpw9L imaginD volumes were not performed in this study.Cardiac Mechanics/Speckle Tracking Imaging:Speckle tracking imaging was not performed in this study. (Just Eat Study).Diastology:Impaired LV relaxation pattern of diastolic dysfunction, Doppler suggests normal LA pressures.Right Ventricle:The RV is dilated. Normal RV systolic function using TAPSE criteria. The right ventricular systolic function is normal. RVFAC=44%.Atria:The left atrial size is normal. Right Atrium is dilated. There is a catheter in the superior vena cava that is seen protruding into the right atrium.Mitral Valve:The mitral valve is grossly normal.Tricuspid Valve:The tricuspid valve is not well visualized, but is grossly normal. Severity of tricuspid insufficiency precludes reliable non-invasive measurement of RVSP. There is severe tricuspid regurgitation.Aortic Valve:The aortic valve is trileaflet. The aortic valve opens well.Pulmonic Valve:The pulmonic valve is not well seen, but is grossly normal.Great Vessels:The aortic root is normal size. The inferior vena cava demonstrates normal size and decreased respiratory variation.Pericardium/Pleural: There is no pericardial effusion.Preliminary ReviewerPreliminary Interpretation: Sole Pineda MD.MMode/2D Measurements IVSd: 1.2 cm LVIDd: 4.8 cm LVIDs: 3.1 cm LVPWd: 1.2 cmFS: 34.6 % LA dimension: 5.0 cmLVOT diam: 2.3 cm EDV(MOD-A4C): 107.9 mlLVOT area: 4.0 cm2 ESV(MOD-A4C): 40.5 ml EF(MOD-A4C): 62.4 %EDV(MOD-A2C): 77.9 mlESV(MOD-A2C): 32.7 ml EDV(MOD-bp): 92.9 mlEF(MOD-A2C): 58.0 % ESV(MOD-bp): 37.1 ml EF(MOD-bp): 60.1 %LAV(MOD-A2C): 87.4 mlLAV(MOD-A4C): 22.4 ml RV EDA_phl: 42.7 cm2LAV(MOD-bp): 52.3 ml RV ESA_phl: 24.0 cm2 RV FAC_phl: 43.9 %LAV(MOD-bp) Indexed: 25.4 ml/m2EDV (MOD-bp) Index: 45.1 ml/m2 ESV (MOD-bp) Index: 18.0 ml/i6TGGZJ (>1.6): 2.4 cmDoppler Measurements MV E max rodriguez: 60.7 cm/sec MV V2 max: 116.3 cm/secMV A max rodriguez: 70.8 cm/sec MV max P.4 mmHgMV E/A: 0.86 MV V2 mean: 59.1 cm/sec MV mean P.7 mmHg MV V2 VTI: 36.4 cm MVA(VTI): 2.8 cm2MV dec time: 0.26 sec Ao V2 max: 124.6 cm/sec Ao max P.2 mmHg Ao V2 mean: 88.8 cm/sec Ao mean P.4 mmHg Ao V2 VTI: 26.7 cm BINU(I,D): 3.8 cm2 BINU(V,D): 3.3 cm2LV V1 max P.3 mmHg SV(LVOT): 102.7 mlLV V1 mean P.3 mmHgLV V1 max: 103.5 cm/secLV V1 mean: 71.3 cm/secLV V1 VTI: 25.8 cmPA V2 max: 112.6 cm/sec TR max rodriguez: 267.9 cm/secPA max P.1 mmHg TR max P.7 mmHgPA V2 mean: 68.6 cm/sec RVSP(TR): 36.7 mmHgPA mean P.2 mmHgPA V2 VTI: 17.2 cmRAP systole: 8.0 mmHg BINU Index (I,D): 1.9AVA Index (V,D): 1.6 Dimensionless Index: 0.83E/e' (avg): 7.6 E/e' (lat): 5.2E/e' (sept): 14.5 MD BarrientosTotal [id number] 20:25:33 Test Item Value Reference Range Interpretation Comments Total Protein (test code = 7649) 7.2 g/dL 6.4-8.3 MD BarrientosElectrolyte [id number] 20:25:23 Test Item Value Reference Range Interpretation Comments Sodium Lvl (test code = 136 See_Comment [Au tomated message] The 5164) system which ge nerated this result tra nsmitted reference range : 136 - 145 mEq/L. The reference range was not u sed to interpret this result as normal/abnormal . Potassium Lvl (test 4.4 See_Comment [Automa jigar message] The code = 6854) system which ge nerated this result tra nsmitted reference range : 3.5 - 5.1 mEq/L. The reference range was not u sed to interpret this result as normal/abnormal . Chloride (test code = 101 See_Comment [Auto mated message] The 2244) system which ge nerated this result tra nsmitted reference range : 98 - 107 mEq/L. The refe rence range was not u sed to interpret this result as normal/abnormal . CO2 (test code = 5227) 22 See_Comment [Aut omated message] The system which ge nerated this result tra nsmitted reference range : 22 - 29 mEq/L. The refe rence range was not u sed to interpret this result as normal/abnormal . Anion Gap (test code = 13 See_Comment [Aut omated message] The 9384) system which ge nerated this result tra nsmitted reference range : 4 - 14 mEq/L. The refe rence range was not u sed to interpret this result as normal/abnormal . MD BarrientosGlucose [id number] 20:25:21 Test Item Value Reference Range Interpretation Comments Glucose Level (test code 137 mg/dL 70-99 H Eff ective 10/21/15, = 5699) the glucose reference inter vals have been updat ed based on [place] an Diabetes Associ ation guidelines (Standards of Medical Care in Diabetes 2016. Diabetes Care 2 016; 39: S13-S22).Fa sting blood glucose:Normal: 70 99 mg/dLImpaire d fasting glucose (increased risk for diabetes or pre-diabetes): 100 125 mg/dLDiabet es mellitus: >/=1 26 mg/dL Random bl ood glucose:Normal: 70 199 mg/dLNote: Random glucose >100 mg/dL is associ ated with increased risk for diabetes Lab Interpretation (test Abnormal code = 21504-1) MD BarrientosInfluenza A/B + COVID-19 Asymptomatic- [id number] 19:32:50 Test Item Value Reference Range Interpretation Comments COVID19 Not Detected Not Detected (SARS-CoV-2) (test code = 98305-7) Influenza A (test Not Detected Not Detected code = 63096-5) Influenza B (test Not Detected Not Detected code = 53392-8) COVID19 SARS Inpatient Indication (test Admission code = 11421) Inf AB+Cov19 See Note The melissa SARS- CoV-2 Comment (test & Influenza A/ B code = 18526) nucleic acid t est for use on the loli s [employer] System is a [employer] real-time RT-PC R assay intended for the simultaneou s, qualitative det ection and differentia l of SARS-CoV-2 (COVID-19), inf luenza A, and influenz a B viral RNA in nasopharyngeal swabs in transport me raudel from patients suspected of walsh ving a respiratory inf ection with one of the se viruses or poss ibly exposure to COV ID-19 by a healthcare provider. Resul ts must be interpr eted within the cont ext of all relevant cl inical and laboratory findings and sh ould not form the so le basis for a raudel gnosis or treatment decision. A fac t sheet for patie nts provided by the shared services manager (Planitax, Nanoflex) can be rev iewed at: https://www.[employer] .gov/m edia/329494/tequila nloadA fact sheet for Health Care providers is provided by the shared services manager (Planitax, Nanoflex) and can be reviewed at: https://www.fda .gov/m edia/421921/tequila nload Influenza A and Influenza B neg ative results should be considered presumptive in samples that walsh ve a positive SARS-C oV-2 result. If co-infection wi th influenza A or influenza B vir us is suspected in sa mples with a positive SARS-CoV-2 resu lts, the sample shou ld be re-tested with another approve d influenza test. This assay has been authorized by t [facility] for use only un nahomy Emergency Use Authorization ( EUA) in laboratories that have been CLIA-certified to perform moderate-comple xity and high-comple xity tests. The Microbiology Laboratory at [facility] [place], CLIA Accreditation #[id number] and CAP Accreditation #[id number], verif ied the performance characteristics of this assay. Int ernal controls are us ed to monitor all sta ges of the test brian [facility]TR[facility] Initial Treatment [id number] 20:18:55Addendum by Juan Garza MD on 09/16/2020 3:32 PMImpression should indicate: FDG avid adenopathy on both sides of the diaphragm associated with soft tissue muscle involvement in the left proximal upper arm medially, left sternocleidomastoid muscle as described above in keeping with the diagnosis of diffuse large B-cell lymphoma.FDG avid adenopathy on both sides of the diaphragm associated withsoft tissue muscle involvement in the left proximal upper arm medially as described above in keepingwith the diagnosis of Hodgkin's lymphoma. Interface, Radiology Results In - 09/16/2020 3:21 PM CDT FULL RESULT:Examination: FDG PET/CT, 09/16/2020 11:58 AMClinical History: 69-year-old male patient with left neck mass, biopsy demonstrating diffuse large B cell lymphoma.Indication: Initial treatment strategy.Comparison: Ultrasound of the head and neck 09/10/2020Technique: F-18 fluorodeoxyglucose (FDG) 10.8 mCi was administered intravenouslyvia left antecubital vein. To allow for distribution and uptake of radiotracer, the patient was asked to rest quietly for approximately 60-90 minutes. PET/CT imaging was performed from the vertex to pelvis. Serum blood glucose at the time of the injection was 105 mg/dL. CT scanning was done for attenuation correction, image registration, and diagnosis with scan parameters optimized to minimize radiation exposure to the patient. SUV measurements are reported as maximum SUV based on body weight unless otherwise specified.Findings: Head and Neck: Multi confluent adenopathy is seen predominating the left neck with the largest confluence seen on image 110 measuring 7.5 x 5.3 cm maximum SUV of 27.9. The adenopathy extends to the left posterior cervical triangle and sternocleidomastoid muscle, left supraclavicular tammy region. The left supraclavicular adenopathy on image 146 measures 3.7 x 2.6 cm maximum SUV of 28.8. FDG avid adenopathy is seen also in the right neck level 2 and level 3, associatedwith increased activity in both tonsils.No hypermetabolic lesion seen in the brain. Sinuses are well-aerated.Chest: FDG avid adenopathy seen in the left subpectoral and left axillary tammy regions. Thelargest confluence of left subpectoral adenopathy is seen on image #163 measuring 5.6 x 3.5 cm with a maximum SUV of 25.9. Discrete left axillary nodes are seen on image 164 maximum SUV of 21.2. No FDGavid nodes are seen in the right axilla or mediastinal tammy regions. The most distal left axillary node is seen on image 185 with a maximum SUV of 16.5.No suspicious FDG avid pulmonary nodules seen. No pleural or pericardial effusion identified. 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 Mild tracer excretion is seen in the kidneys.Enlarged FDG avid nodes are seen in the left inguinal tammy region best seen on image #400 measuring 2.3 x 1.9 cm with a maximum SUV of 22.3. FDG avid left obturator node seen on image 274 has a maximum SUV of 12.6.No FDG avid nodes are seen in the abdominal tammy regions.Musculoskeletal: No FDG avid lytic or blastic lesion identified within the scanned skeletal structures.FDG avid adenopathy is seen in the soft tissues around the left medial upper arm best seen on image #223 this nodule measures 2.5 cm maximum SUV of 11.2 and just superior to this the muscles in the deltoid region have soft tissue involvement on image 195 which shows a maximum SUV of 23.1.IMPRESSION:FDG avid adenopathy on both sides of the diaphragm associated with soft tissue muscle involvement in the left proximal upper arm medially as described above in keeping with the diagnosis of Hodgkin's lymphoma.MD BarrientosBlood Culture # 13:00:00 Test Item Value Reference Range Interpretation Comments Result (test code = No growth in 5 days 6463-4) [facility] [id number] 13:00:00 Test Item Value Reference Range Interpretation Comments CULTURE (BEAKER) (test No growth in 5 days code = 1095) BLOOD [id number] 13:00:00 Test Item Value Reference Range Interpretation Comments CULTURE (BEAKER) (test No growth in 5 days code = 1095) Pathology Biopsy [id number] 22:57:15 Test Item Value Reference Range Interpretation Comments Submitted Clinical History b2utzKQyHQEal5xdYLY (test code = 92351) mbGFuZzEwMzNcZnRuYm pcdWMxIHtccnRmMVxzc 0NyT7GoGfUsCBtjkyNi XGRlZmxhbmcxMDMzXGZ 0bmJqXHVjMVxkZWZmMH mxVv9dlOBrgLapXdZwA BYdz2eznoGJkeadwDc3 t0jqHKAnByQ4pKVoWUc xF7qpceBptQMlNSDuBO j1bZ44TZWieH7ydACdR UhkujNkWpU3BScqOLVa EzN5ACWnfHZdWJDyE9o yZWQwXGdyZWVuMFxibH CyTZG0gLmzm8J7hCEyc GVldHtcZjBcZnMyMiBO s6UeCJz5aMcrD5UyXMG aLpE8rKIvARHpUImmRC XeCFBdppU9zM71RWucb aI2oZDdz0Dih24ts880 jR4iyABqFSX5DXNdDCU ulROaZUVmJJK8WZMzyO MwF6zhIBSbQZ8qaywvB PutWRigCOXlzNS4BSGv vOHeB4ZrBRHpMJiyBZV ytor1MwHnJb4njPFjzT dkMMyje3chi2xthKYvU qj1DNIuFnFlGplhAPpy p7Umj3isSPYgsx2iBSA 5lZItuDwsl4F3xBRfJZ RydILsmkAeKMMnIrC1V IjiWW3wyn06CDLnJVM2 vg7puJXuyLyhysEqyQQ eJDvdU0XfZOLni070OV YsT9LnIAIvn3I2tgHgJ bEiGJXjbRD6neI4JUGs LOi2nYWxigW0zlTriTY zT8wahI3gQANlRP3rmu vhw8tmXTiqXDqoGBOty LZ4ciB2KGFkpLMrT5Gn uZ1zYUWyMUooQQHwdmi 6YkGuNa2msYFhmAdlYE xzYmtwYWdlXHBnbmNvb nRccGduZGVjXHBsYWlu XHBsYWluXGYwXGZzMjR jlJyggFmdmJ2eGwRbZo LxBIwkTS2xDYCkT9nja ZAlBTYaWLGlI3npLxPo yG2ljYzcZVyalqMrVK9 jr2Owf0MzhwOwwaZnWz IyLjFdXHBsYWluXGYxX GZzMjJcbGFuZzEwMzNc aGljaFxmMVxkYmNoXGY wOLyfY7gsXvBzGhDkQw yuPDM4aW== Diagnosis (test code = 34) i6prqJAkQGZnuJL1UOF cXVAbb8ncz2QmuSOdhZ LeOGvngSJsvrCmkm34w IP2eA19QT8rFWIqTcV0 VWBapzJ3Zkc7ZKHsNYY vcECsU806j8ifr0gzme SzfYF3NWSiKSGlV1KwA W9sKFUwhUYvI65bhDEr XSD8BKVgUMMolUXpGXX mIOA6FOCluCTpJ8qpRV WsAU6rdeamQMfyVTttI KGnrBA1JEItoXOjL5Cn WRZuGVkaHKXwtbq6ZjB pHm8shNHirIqcSRhqNF JkXHBsYWluXGZzMjJcY 1GcQQ4mM7rppNQcjnlr gPEmcPzmU23eHPUlfR5 pg1zwfghouKDfFLNbhl n2DHNjJXvUZgZBJFQMG VJHRSBCLUNFTEwgTFlN EJmNWKZeJX1TOi2KXCM SUU1NVFXDMX1GRLCaRi 9JTUeLMHNHRL8QDCgCN Lskd4BbPVBmdJ6kyfMx oWDhXMMbjhk0ZCYkFTe YWWXyPFRAE2fxVhAllY VtUFArbB6iHMzzCK30w XBsFVRyAvxtxG6xwJ6o pRdmbR5dvGJqiGF3gqm qTPP2cDLwkfScrktcEQ Tno0YmcFGvIErtmgZqy 23rJPBtJQ0gmFaeRUdy YXJ9 Comment (test code = 9835) c7cddXXgQWLkqXQ1CJK yILGpf5lej2NglDKbfG QtGJzorEPuyjDkks95n OW4nF35IF0bMGCfNuG5 UPBdcbT3Nwf2EZGeDSJ hpNOoW005r9lgv6fdpi NwyBV6XOAlNQQfO4SwO S9uQELenWPaT51kqOOe MEG0FMExUZDniCNwMIY eQVO7JONqeLKaL8emLC AdFD8vxerbJAguCVboU DShsJJ0KLWltBHbT9Ps TJUrLDqsCOVuqci5JeH bXk2pxKBvkOmvBYpfPM JkXHBsYWluXGZzMjBcY 6IgHRArGZPjhVP6p0uh A4hsSFNzB6Gne75qDVO io9roGdGpZ83cbyIgMA 7pPETzTjYfmBdgf8BnQ OVeHaB9a9OebAQmpaSc UMc1QM5jyLMdjJxtiY5 2b2g6DRZqDaowxCrqoX hvbWEuICBUaGUgbHltc XienWPjnOXfM90ceIUz q4FbTR3qYSTqGNA3nxA vObCeOYLsSCYpqL5sxD 9oRHTfOIcgxnU7nMGzJ DUkQM7nz4EajEzbMN78 S9bsaFzraKRnDRx8kRV mTB36X8zxMEBeF79wvY 91cnMsIGZpbmVseSBka UCuKMMeZSRgl3TnsfNy sAS6nYBlXKYuog2gSCN pbiwgZnJlcXVlbnQgc2 toG9jvWNNmWWQcfr1ew A2bvoTvGH7buN4zhDsy zPsdDU89Y2wqw8uuQZC jJSSduQWyTHWucQ94qd OhCL8pYURkwBNiI9b7q 2UxAIZxZxCkEIw9h7Zy ZsUkmIo0dqCeSCBcVIV lYXNpbHkgaWRlbnRpZm cpGxxiNGFsGTGvoF9wz U18zQLeNw6zsAEiTCQo LRHbqC5yls23iw4kCKC vBNKpAYmpHK0cecoeNY BjcnVzaCBhcnRpZmFjd CGjlwOom2YwlAVbbcQn lcOwpJ9zTkI0vISyLHH 3zQVbj7j1LQYirJDnx0 WdzuDmhoE7rRFiVaAkq 6swb2IyHM5jsPNnQTGc dwNMpO17bz4phZT1k9V pVK2fX3DwTVH6SEotsK 2nXXHwq7dbBJFmILCce YrqOM7xs3FoJZI0kJPt O9WudTUyHKQzZHKml7u 0aXZlIGZvciBDRDIwLC BDRDIxICgzMCUsIHdlY NzjXTO4BmNuqWmsDITI FYJaIHSRBWTyKD1BRVX uYL45YFNzMYVWZLHxSI K6rd6aJscagssgXPphT S7bVDGVMZIySYBmJGEj KLehaWe4QGAsh5RdK9N 1LCBDRDEwLCBDRDMwLC KCP9e8RSb+MjAlLCBiZ JwdvnN2vGWrT8N3g4Cf OBzbE0qbiLikOJFzEMW rZXJhdGluIGFuZCBwYW 6kJBnfyu7mROZjWODgN 3a7XAirZoHeDBfkLOXP SkVnmuCqY4A1QKI7POa ucyBoaWdobGlnaHQgc2 UqnDGifuAkKNCjgDf2H YBbDHYvgW7weV0pcTLc og3sTOFmIFDSEOMsITY 1FVrzXFbeHY6vq5NagG WikzEpDNZhiyXcSz1nK ZVtnNrmR0RrGVGcTRGz ZHJpdGljIGNlbGwgbWV zaHdvcmtzLiAgVGhlIG 8gu4DkJIE5nDVaG9Yai LEwrMT4PACyUHWzt1at CpCwQNUff42yyB3pGWo op3RiRHHaaf09uT3kgU KevRY1RRRzQttfR0prZ mqif8PanP6hyyifSBXR QkVSIGluIHNpdHUgaHl icmlkaXphdGlvbiBpcy GyLJjgyHc7VY6rLCuaV JLoxRCcENTvrsI3zBEr H7sotqgaLHlglq76PWR fOJX9uFyxFGzfBLQyXk EjyYEsbu2znBTrgLRxF IJeUJOklvCclcrwr6o8 vXBqDHOwIrDbE92rdNP cbOToKMDlXH4dl9CcFM IzCWOmstRvcQ5afIxkB QqhDsXbz1Dsgb0yQ5if cOKduCEaxK7vCQKyzZP koPVoCZIxN8o4HP1nYE SmfwSic4JzBMJlv8Gkd mVjayBlbmxhcmdlZCBu f1TjagS4eHKiYOhdgFL qIBFpC2jytUVfaYWiMW WmoqX3FyhyE42oDNVhA APcLlRrQ95kZH1yMLBi ZWQgbGVmdCBzdXBlcml hxaEwVHWwKW7xYDTzVY XNWCEeQVKutl8zfVZsp 9CyKNrxB29ue4syKQ0x CSo4kYXli23rUkitZWV tnGKjDO07HBRirUmxVF JxUOYzh7CuqT0xx1ylI uKwzjChlL7guK9dbVdz ur94zFHqXkAdoM6ubG7 qgpOwxPFon7A4IJCmEw S4l1CzrQYyX3UnAg0hR FnbSYu8vKOsl05oYl6h H6KrADImQYShzC39gy9 alCFbu9E4wXamSALvrg YxsvsvEWT0fFZsmtUuB GlmZnVzZSBsYXJnZSBC LWNlbGwgbHltcGhvbWE ze5Fuer5pMLwpfy6ryq FsIGNlbnRlciBsaWtlI SCiJZ5qeRspJNzkALWw g5KooO7gLZJgFNTcAOJ xQJZzp2Hou8FxMFQgrf UllOUnbN7oLUYvx54kJ kKkMPK2WQmxzeI9YQHs JSGhByL1OF99AohxZsR nLdp1w8Ilg7XudgNyOC luIHNpdHUgaHlicmlka FagqFhekwFtx8GmusCf cnJhbmdlbWVudHMgaW5 5s1s2pZ0dXV6QFkcmEi NMMiBhbmQgQkNMNiBhc dSwaS4tNFD9FGo0KUFu GTBtZGE4kBScEWmmaMe bQyJhfqSdh4J8FMGke5 VwYXJhdGVseSBhbmQgd RwuHYVvGAhze7GhgaJl LMPml7EmBJfaPP9wBDS fNL8rkTTumB== Gross Description (test c2eslXUkDVFxrLDBETW code = [id number]) nR8yzvqRgFYJnrRPzV5 LsnalqVWtePY0zTW2cb KdkwXKrlVBgRZ6IRNFt ZmYxXHBhcGVydzEyMjQ bQHSmsQXgfSD8ENZlVY 1hcmdsMTgwMFxtYXJnc yK1OOXxlYBpE2MjDLAd WZ6cbuwhZJX2SGryqD0 jmvGLVxhsZk9kbKDusW tcZjFcZmNoYXJzZXQwX IBinPtqKMCbRBj1cZ0E YvyuR48mq6K4Uep8XCF aPRHiN4TmIU2mLZWquR BcA15YJzkxDBZ3RYYYP fuqPONsAO9Sn7amRXDg fFViQJC9XWtusGQvIDC fCJKoCSc8MQPaCSvhdJ BtXT7nnYktHqeqiSlsb 2VjdCBcXGlkIDUxMDAy MElgIXXzGK5RBjPjMIP sKxz9VJZsCHd0NEa7QZ 3FNsXcZASoUQx6VJVyU LPqHBn2FIbhLN5ZGSt4 MMW8EeZ9TSB2NVXrHVN cXHQgMiBcXGYgQXJpYW wgXFxmcyAxMCBcXGZiI OvtQaupNLsrY04vsMke kZ2zGjtpbdUuSHT3FYE hciANClxwbGFpblxlcG ljTmVzdERvYzEgDQpcb HRycGFyXGxpbjBccmlu MCANClxsdHJjaFxiXGN oXHagozHbMN5uG3glFU xlZnQsIGxlZnQgbmVja yBtYXNzIGFwcHJveCA9 YXHfCzSidEC8RrWwP57 2LUEeOGXjNQArPYJmw8 KexsHvXeWkeI1hRZBsB sAdgBucj0JeSGIdUCZe YWdncmVnYXRlIHRvIDE fNqL5SQYhYhS3URTdJH GiiLefAO67wUNdpBvcy 7WisAd8wGYoGFezKJCg ImLiUABgo3XlN5V3IPZ cLPbml1cwKVRjDLuhc2 McJWiPKCQAJF8IRV8lt CV6GDgEQ1HNK2bNhYMc UXP4eXN8KBYGTjenpVR 9bDY1eI57MOVoVERprJ XfCNpuH146Z1J3FVTbW Hfht3jdBFVeLHfyq5We KFnGYAEQSH3NBC4bbJU 6LOvQI4ZYPDzrCMOgMt grfQNRYIZ5QWtyeLrai Df2p9egzCHik0t5BCny XFY4tWyqeAFuinmcsMF lrDciwzCcON9TWHQmQP qaFDUgeZAQLJK6BK2uH LixxJBjxgxsCTXxV5Fw L2MomhRbyMPaJDDuodW vi1ipAFD5SUWlmVHztF HxUnBuLmxaCFQ8DFlao 8hpGFK6MZNsoSOchJOw JGwaHeGlShzuXGVdW3Q fX1KgkqM4KTh5 Disclaimer (test code = n8qovPOsSZJozLTzPbO 9844) oZYUzTBSll9vyVVBslZ FuZzEwMzNcZnRuYmpcd VUmUUSdPdSkc8mry186 hVWyw5qaDCIuMzA3cHW pVQOaeJOxX228FIHjKL qnj8jof2FrIKEhwOHux 1F7QYLGonelnYm7hVeb C74cv4U9UgybU4ikXBI bSQFlV4GdOI0hPUPnPg n6TFJ1OBJ8FAPyNUXoN 2MvPL7gYDNidJSuJAt6 c3sxcAheQERnJHT8k2l hFMwijkXuKF2obw4ehD q7k5fekbFoFUDfSNKqw NNQYKBgL9ZfsXshJy2j mOj5nGrqZotkLQQ0Jop 7PJ8nvm25upu4wTdvAA NvwejwSnX7DOciRZNpy sdwGIi4ENxuHFSbqLY5 DFOzsHWgZ6OwBGTeFY1 lgxu7KJL6JWocVPEqSs X1LMZosACdOKBjpPezV Iqyc163OTU5YaZyII1a A1Llt7Y6fS7thARxAZG skFDnItUtSQRjfh7tvF DhPFqrs6OkSMX1wvL7s VUbwIIdSFBuJD01Jpwy n5ThQxvjCHC3MWUbomV os2Wor5nqRaJaddHbU4 ksD3AdRXVxFRWaSPYjG gSqqmGch8Gkv2QjqNOp xZn2o0krXFChZWXmbQb nk1plZFP2GYUxM8E4pQ Jsr4apQTcaGUHrgTL8b rA2YYRgnJSaA4JpuQ0y BJJcPL9ceyc6f4myAWN 6HAyqRGMzBzJ5xgK8AY BcaGVhZGVyeTcyMFxmb 340LRP7YrJyUWBjr5Og J5GlaQrgS95ahCtaT60 jTAJtyYprrJ6mkZtegV 5cZjBcZnMyNFxxbFxwb KNzgikmKZpedrW9VPhd ucrsIRUdRNnoT0faJeT bDJGvsRizMAjex4XtOI CaABPuRcghqfE2DDPUf 62iTHZny4IaJQSikG1w wOCtWObbvhEyaOJ8VMm hdmUgYmVlbiBkZXZlbG 7zABQgYF0fTRLkziJhi v5kyxVhOTCqLPNkD7Mw cmlzdGljcyBkZXRlcm1 boxAaNXD2GQWMIN6EJS DmLDOac83dILLzuSpkz E8nsZPoqmPuBZZrg8Bf iC7mpQAFKFPgI9soUR3 tAEujm2NztMXwnPNnfC Z7TTEwg5AxExQmkyYhk SRatJLsO5ShzDnfV1da UVCqMHEwozIcvCAct0G zZITfeEE0aLXdZO0NNy SEh49yZGFyALWMgiDlD LZsjXzuhGP0vaL7sP8c LiBJZiBhcHBsaWNhYmx rLMEje718re6uruM7AN HuBUAwkrmha4CoYSRtT ZFbkG91CSQqHAValm9p rcrqiZTdhqLuS4Noilx 2lW9nXWYmUVbfWFXbYK ZzMjJcbGFuZzEwMzNca GljaFxmMVxkYmNoXGYx BJetW4tqSeBwTlFmRmq wYXJ9 MD Mattson, BRAIN, WITHOUT [id number] 12:22:00Unlisted Reason for Exam - Click Yes and Enter Reason Below->No [facility] CENTERName: CHYNA RYAN : 1950 Sex: MFINAL REPORT CT Head without contrast CLINICAL HISTORY: Dizziness,non- specific TECHNIQUE: Contiguous axial CT images through the head without contrast. This exam was performed according to the departmental dose optimization program which includes automated exposure control, adjustment of the mA and/or kV according to the patient size, and/or use of an iterative recon struction technique. COMPARISON: None FINDINGS: There is no CT evidence of acute infarct or intracranial hemorrhage. 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 There is mild periventricularand subcortical white matter hypodensity which is nonspecific but compatible with chronic microvascular ischemic change. There is atherosclerotic calcification of the intracranial circulation. There isgeneralized parenchymal volume loss without hydrocephalus, midline shift, or apparent mass effect. There are no extra-axial fluid collections. The skull is intact. The visualized paranasal sinuses are well- aerated. IMPRESSION: No CT evidence of acute infarct, hemorrhage, or hydrocephalus. Chronic left superior frontal lobe infarct. Signed: Adam Khan MDReport Verified Date/Time: 09/11/2020 12:22:16 Reading Location: [address] Neuro Reading Room CT brain without IV [id number] 12:22:00Interface, External Ris In - 09/11/2020 12:[address] Head without contrast CLINICAL HISTORY: Dizziness, non-specific TECHNIQUE: Contiguous axial CT images through the head without contrast. This exam was performed according to the departmental dose optimization program which includes automated exposure control, adjustment of the mA and/or kV according to the patient size, and/or use of an iterative reconstruction technique. COMPARISON: None FINDINGS: There is noCT evidence of acute infarct or intracranial hemorrhage. 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 There is mild periventricular and subcortical white matter hypodensity which is nonspecific but compatible with chronic microvascular ischemic change. There is atherosclerotic calcification of the intracranial circulation. There is generalized parenchymal volume loss without hydrocephalus, midline shift, or apparent mass effect. There are no extra-axial fluid collections. The skull is intact. The visualized paranasal sinuses are well-aerated. IMPRESSION: No CT evidence of acute infarct, hemorrhage, or hydrocephalus. Chronic left superior frontal lobe infarct. Signed: Adam Khan MDReport Verified Date/Time: 09/11/2020 12:22:16 Reading Location: [address] Neuro Reading Room El ectronically signed by: ADAM KHAN M.D. on 09/11/2020 12:22 [facility][id number] 11:21:00 Test Item Value Reference Range Interpretation Comments Color, UA (test code = Yellow 5778-6) Clarity, UA (test code Clear = 5767-9) Specific [place], UA 1.020 1.001-1.035 (test code = 5811-5) pH, UA (test code = 5.5 5.0-8.0 5803-2) Protein, UA (test code Negative Negative = 61206-9) Glucose, UA (test code Negative Negative = 365) Ketones, UA (test code Negative Negative = 2514-8) Bilirubin, UA (test Negative Negative code = 63579-2) Blood, UA (test code = Negative Negative 57942-0) Nitrite, UA (test code Negative Negative = 5802-4) Leukocytes, UA (test Negative Negative code = 5799-2) Urobilinogen, UA (test 0.2 mg/dL 0.2-1 code = 35581-7) Bacteria, UA (test None Seen code = 70134-3) RBC, UA (test code = None Seen See_Comment [Autom ated message] 799-7) The system whic h generated this result transmitted ref erence range: /HPF. Th e reference range was not used to int erpret this result as normal/abnormal . WBC, UA (test code = <5 See_Comment [Autom ated message] 50348-4) The system [employer] generated this result transmitted ref erence range: /HPF. Th e reference range was not used to int erpret this result as normal/abnormal . SQUAMOUS EPITHELIAL <5 See_Comment [Automa jigar message] (test code = 53559-6) The sy stem which generated this result transmitted ref erence range: /HPF. Th e reference range was not used to int erpret this result as normal/abnormal . Specimen Source (test code = 2795) [facility] [id number] 11:21:00 Test Item Value Reference Range Interpretation Comments COLOR (BEAKER) (test code = Yellow 470) CLARITY (BEAKER) (test code = Clear 469) SPECIFIC GRAVITY UA (BEAKER) 1.020 1.001-1.035 (test code = 468) PH UA (BEAKER) (test code = 5.5 5.0-8.0 467) PROTEIN UA (BEAKER) (test code Negative Negative = 464) GLUCOSE UA (BEAKER) (test code Negative Negative = 365) KETONES UA (BEAKER) (test code Negative Negative = 371) BILIRUBIN UA (BEAKER) (test Negative Negative code = 462) BLOOD UA (BEAKER) (test code = Negative Negative 461) NITRITE UA (BEAKER) (test code Negative Negative = 465) LEUKOCYTE ESTERASE UA (BEAKER) Negative Negative (test code = 466) UROBILINOGEN UA (BEAKER) (test 0.2 mg/dL 0.2-1.0 code = 463) BACTERIA (BEAKER) (test code = None Seen 517) RBC UA-MANUAL (BEAKER) (test None Seen /HPF code = 1659) WBC UA-MANUAL (BEAKER) (test <5 /HPF code = 1661) SQUAMOUS EPITHELIAL MANUAL <5 /HPF (BEAKER) (test code = 1663) SOURCE(BEAKER) (test code = 2795) Troponin I (not available at [facility] [place])2020-09-11 11:12:00 Test Item Value Reference Range Interpretation Comments Troponin I (test code = <0.03 0-0.15 33832-5) DARCI (test code = DARCI) Troponin I (TnI) levels must be interpreted in the context of the presenting symptoms and the clinical findings. Elevated TnI levels indicate myocardial damage, but are not specific for ischemic heart disease. Elevated TnI levels are seen in patients with other cardiac conditions (including myocarditis and congestive heart failure), and slight TnI elevations occur in patients with other conditions, including sepsis, renal failure, acidosis, acute neurological disease, and persistent tachyarrhythmia.Opera tor ID - [id number] Lab Interpretation (test Normal code = 72541-6) [facility] [id number] 11:12:00 Test Item Value Reference Range Interpretation Comments TROPONIN I (BEAKER) (test code = 397) < ng/mL 0.00-0.15 Troponin I (TnI) levels must be interpreted in the context of the presenting symptoms and the clinical findings. Elevated TnI levels indicate myocardial damage, but are not specific for ischemic heart disease. Elevated TnI levels are seen in patients with other cardiac conditions (including myocarditis and congestive heart failure), and slight TnI elevations occur in patients with other conditions, including sepsis, renal failure, acidosis, acute neurological disease, and persistent tachyarrhythmia.Mask Layout Designer ID - [id number] acid, venous [id number] 10:57:00 Test Item Value Reference Range Interpretation Comments Lactate, Venous (test code 1.55 mmol/L 0.5-2 = 2872) DARCI (test code = DARCI) Mask Layout Designer ID - [id number] ID - [id number] ID - [id number] ID - [id number] Lab Interpretation (test Normal code = 90733-3) [facility], [id number] 10:57:00 Test Item Value Reference Range Interpretation Comments LACTATE BLOOD 1.55 mmol/L See_Comment [Automated me ssage] VENOUS (2) (BEAKER) The syst em which (test code = 2872) generated this result transmitted ref erence range: 0.50-<2. 00. The reference range was not used to interpr et this result as normal/abnormal . Mask Layout Designer ID - [id number] ID - [id number] ID - [id number] ID - [id number] Comprehensive metabolic [id number] 10:43:00 Test Item Value Reference Range Interpretation Comments Protein, Total (test 7.0 See_Comment [Autom ated code = 2885-2) message] The system which generated this result transmit jigar reference range : 6.0 - 8.5 gm/dL . The reference range was not u sed to interpret th is result as normal/abnormal . Albumin (test code = 3.6 g/dL 3.5-5 78760-0) Alkaline Phosphatase 72 U/L 30-115 (test code = 6768-6) Total Bilirubin (test 0.9 mg/dL 0.1-1.2 code = 1974-2) Sodium (test code = 138 meq/L 256-432 3050-2) Potassium (test code 4.6 meq/L 3.6-5.5 = 2823-3) Chloride (test code = 103 meq/L 98-106 2075-0) CO2 (test code = 23 meq/L 20-29 2028-9) BUN (test code = 42 mg/dL 10-26 H 3094-0) Creatinine (test code 2.08 mg/dL 0.5-1.2 H = 2160-0) Glucose (test code = 107 mg/dL 70-110 2345-7) Calcium (test code = 9.2 mg/dL 8.5-10.5 05902-0) AST (test code = 26 U/L 5-40 1920-8) ALT (test code = 11 U/L 5-50 1742-6) EGFR (test code = 38 mL/min/1.[place] [address]-7) NOT ACCURATE CREATININE CLEARANCE IN PREDICTING GLOMERULAR FILTRATION RATE . ESTIMATED GFR I S NOT APPLICABLE FOR DIALYSIS PATIEN TS. DARCI (test code = DARCI) Mask Layout Designer ID - [id number] ID - [id number] ID - yhlu43Gadhheut ID - [id number] ID - lcrz33Hdargwpf ID - [id number] ID - [id number] ID - piil25Jstsmlnc ID - ligl23Aefvtdcu ID - [id number] ID - [id number] ID - [id number] ID - ildc74Thvbdovl ID - wcam75Hhuizpfy ID - [id number] ID - [id number] ID - wnyu60Bdtoctxm ID - [id number] ID - [id number] Lab Interpretation Abnormal (test code = 47791-2) [facility] count + automated [id number] 10:43:00 Test Item Value Reference Range Interpretation Comments WBC (test code = 6690-2) 6.8 See_Comment [A utomated message] The system [employer] generated this result transmitted ref erence range: 4.0 - 10 .0 K/L. The refe rence range was not u sed to interpret this result as normal/abnor mal. RBC (test code = 789-8) 3.71 See_Comment L [Au tomated message] The system [employer] generated this result transmitted ref erence range: 4.20 - 5 .80 M/L. The refe rence range was not u sed to interpret this result as normal/abnor mal. MCHC (test code = 786-4) 32.6 See_Comment L [A utomated message] The system [employer] generated this result transmitted ref erence range: 32.0 - 3 6.0 GM/DL. The refe rence range was not u sed to interpret this result as normal/abnor mal. Hematocrit (test code = 31.6 % 36-50 L 4544-3) MCV (test code = 787-2) 85.2 fL 82-99 MCH (test code = 785-6) 27.8 pg 27-33 RDW (test code = 788-0) 14.5 % 12-15 Platelets (test code = 204 See_Comment [Aut omated message] 777-3) The system [employer] generated this result transmitted ref erence range: 150 - 43 0 K/CU MM. The referen ce range was not u sed to interpret this result as normal/abnor mal. MPV (test code = 9.5 fL 6-11.5 27938-9) nRBC (test code = 413) 0 See_Comment [Aut omated message] The system [employer] generated this result transmitted ref erence range: 0 - 0 /1 00 WBC. The refere nce range was not u sed to interpret this result as normal/abnor mal. % Neutros (test code = 56 % 429) % Lymphs (test code = 21 % 430) % Monos (test code = 18 % 431) % Eos (test code = 432) 4 % % Baso (test code = 437) 0 % # Neutros (test code = 3.80 See_Comment [Aut omated message] 670) The system [employer] generated this result transmitted ref erence range: 1.80 - 8 .00 K/L. The refe rence range was not u sed to interpret this result as normal/abnor mal. # Lymphs (test code = 1.44 See_Comment L [Auto mated message] 414) The system [employer] generated this result transmitted ref erence range: 1.48 - 4 .50 K/L. The refe rence range was not u sed to interpret this result as normal/abnor mal. # Monos (test code = 1.20 See_Comment [Autom ated message] 415) The system [employer] generated this result transmitted ref erence range: 0.00 - 1 .30 K/L. The refe rence range was not u sed to interpret this result as normal/abnor mal. # Eos (test code = 416) 0.28 See_Comment [Au tomated message] The system [employer] generated this result transmitted ref erence range: 0.00 - 0 .50 K/L. The refe rence range was not u sed to interpret this result as normal/abnor mal. # Baso (test code = 417) 0.03 See_Comment [A utomated message] The system [employer] generated this result transmitted ref erence range: 0.00 - 0 .20 K/L. The refe rence range was not u sed to interpret this result as normal/abnor mal. Immature 1 % 0-0 H Granulocytes-Relative (test code = 2801) Lab Interpretation (test Abnormal code = 57527-0) [facility] W/PLT COUNT & AUTO [id number] 10:43:00 Test Item Value Reference Range Interpretation Comments WHITE BLOOD CELL COUNT (BEAKER) 6.8 K/ L 4.0-10.0 (test code = 775) RED BLOOD CELL COUNT (BEAKER) 3.71 M/ L 4.20-5.80 L (test code = 761) HEMOGLOBIN (BEAKER) (test code = 10.3 GM/DL 13.0-16.8 L 410) HEMATOCRIT (BEAKER) (test code = 31.6 % 36.0-50.0 L 411) MEAN CORPUSCULAR VOLUME (BEAKER) 85.2 fL 82.0-99.0 (test code = 753) MEAN CORPUSCULAR HEMOGLOBIN 27.8 pg 27.0-33.0 (BEAKER) (test code = 751) MEAN CORPUSCULAR HEMOGLOBIN CONC 32.6 GM/DL 32.0-36.0 (BEAKER) (test code = 752) RED CELL DISTRIBUTION WIDTH 14.5 % 12.0-15.0 (BEAKER) (test code = 412) PLATELET COUNT (BEAKER) (test 204 K/CU MM 150-430 code = 756) MEAN PLATELET VOLUME (BEAKER) 9.5 fL 6.0-11.5 (test code = 754) NUCLEATED RED BLOOD CELLS 0 /100 WBC 0-0 (BEAKER) (test code = 413) NEUTROPHILS RELATIVE PERCENT 56 % (BEAKER) (test code = 429) LYMPHOCYTES RELATIVE PERCENT 21 % (BEAKER) (test code = 430) MONOCYTES RELATIVE PERCENT 18 % (BEAKER) (test code = 431) EOSINOPHILS RELATIVE PERCENT 4 % (BEAKER) (test code = 432) BASOPHILS RELATIVE PERCENT 0 % (BEAKER) (test code = 437) NEUTROPHILS ABSOLUTE COUNT 3.80 K/ L 1.80-8.00 (BEAKER) (test code = 670) LYMPHOCYTES ABSOLUTE COUNT 1.44 K/ L 1.48-4.50 L (BEAKER) (test code = 414) MONOCYTES ABSOLUTE COUNT (BEAKER) 1.20 K/ L 0.00-1.30 (test code = 415) EOSINOPHILS ABSOLUTE COUNT 0.28 K/ L 0.00-0.50 (BEAKER) (test code = 416) BASOPHILS ABSOLUTE COUNT (BEAKER) 0.03 K/ L 0.00-0.20 (test code = 417) IMMATURE GRANULOCYTES-RELATIVE 1 % 0-0 H PERCENT (BEAKER) (test code = 2801) COMPREHENSIVE METABOLIC [id number] 10:43:00 Test Item Value Reference Range Interpretation Comments TOTAL PROTEIN 7.0 gm/dL 6.0-8.5 (BEAKER) (test code = 770) ALBUMIN (BEAKER) 3.6 g/dL 3.5-5.0 (test code = 1145) ALKALINE PHOSPHATASE 72 U/L 30-115 (BEAKER) (test code = 346) BILIRUBIN TOTAL 0.9 mg/dL 0.1-1.2 (BEAKER) (test code = 377) SODIUM (BEAKER) (test 138 meq/L 135-148 code = 381) POTASSIUM (BEAKER) 4.6 meq/L 3.6-5.5 (test code = 379) CHLORIDE (BEAKER) 103 meq/L 98-106 (test code = 382) CO2 (BEAKER) (test 23 meq/L 20-29 code = 355) BLOOD UREA NITROGEN 42 mg/dL 10-26 H (BEAKER) (test code = 354) CREATININE (BEAKER) 2.08 mg/dL 0.50-1.20 H (test code = 358) GLUCOSE RANDOM 107 mg/dL 70-110 (BEAKER) (test code = 652) CALCIUM (BEAKER) 9.2 mg/dL 8.5-10.5 (test code = 697) AST (SGOT) (BEAKER) 26 U/L 5-40 (test code = 353) ALT (SGPT) (BEAKER) 11 U/L 5-50 (test code = 347) EGFR (BEAKER) (test 38 mL/min/1.73 ESTIMA JIGAR GFR IS code = 1092) sq m NOT ACCURATE CREATININE CLEARANCE IN PREDICTING GLOMERULAR FILTRATION RATE . ESTIMATED GFR I S NOT APPLICABLE FOR DIALYSIS PATIEN TS. Mask Layout Designer ID - [id number] ID - [id number] ID - [id number] ID - [id number] ID - [id number] ID - [id number] ID - [id number] ID - [id number] ID - [id number] ID - [id number] ID - [id number] ID - [id number] ID - [id number] ID - [id number] ID - [id number] ID - [id number] ID - [id number] ID - [id number] ID - [id number] Kinase (CK)2020-09-11 10:38:00 Test Item Value Reference Range Interpretation Comments Total CK (test code = 266 U/L 40-250 H 2157-6) DARCI (test code = DARCI) Mask Layout Designer ID - [id number] Lab Interpretation (test Abnormal code = 55193-1) [facility] 10:[facility]00 Test Item Value Reference Range Interpretation Comments CREATINE KINASE TOTAL (BEAKER) (test 266 U/L 40-250 H code = 380) Mask Layout Designer ID - [id number] time/[id number] 10:34:00 Test Item Value Reference Interpretation Comments Range Protime (test code = 10.9 See_Comment Final 5902-2) Information (Auto Output) [Automated message] The system which generated this result transmitted reference range : 9.3 - 12.0 seconds. The reference range was not used to interpret this result as normal/abnormal . INR (test code = 0.98 See_Comment Final 6301-6) Information (Auto Output) [Automated message] The system which generated this result transmitted reference range : <=5.90. The reference range was not used to interpret this result as normal/abnormal . DARCI (test code = RECOMMENDED DARCI) COUMADIN/WARFARIN INR THERAPY RANGESSTANDARD DOSE: 2.0 - 3.0 Includes: PROPHYLAXIS for venous thrombosis, systemic embolization; TREATMENT for venous thrombosis and/or pulmonary embolus.HIGH RISK: Target INR is 2.5-3.5 for patients with mechanical heart valves. Lab Interpretation Normal (test code = 60522-1) [facility] Test Item Value Reference Range Interpretation Comments PTT (test code = 22.8 See_Comment L Final Infor mation 10277-8) (Auto Output) [Automated mess age] The system ic h generated this result transmitted ref erence range: 23.0 - 3 5.0 seconds. The reference range was not used to int erpret this result as normal/abnormal . Lab Interpretation (test Abnormal code = 75184-2) [facility]/[id number] 10:34:00 Test Item Value Reference Range Interpretation Comments PROTIME (BEAKER) 10.9 seconds 9.3-12.0 Final Infor mation (test code = 759) (Auto Outp ut) INR (BEAKER) (test 0.98 See_Comment Final Inf ormation code = 370) (Auto Output) [Automated mess age] The system [employer] generated this result transmitted ref erence range: <=5.90. The reference range was not used to int erpret this result as normal/abnormal . RECOMMENDED COUMADIN/WARFARIN INR THERAPY RANGESSTANDARD DOSE: 2.0 - 3.0 Includes: PROPHYLAXIS forvenous thrombosis, systemic embolization; TREATMENT for venous thrombosis and/or pulmonary embolus.HIGH RISK: Target INR is 2.5-3.5 for patients with mechanical heart valves.[id number] 10:34:00 Test Item Value Reference Range Interpretation Comments PARTIAL THROMBOPLASTIN 22.8 seconds 23.0-35.0 L Final Information TIME (BEAKER) (test (Auto Ou tput) code = 760) POC-Glucose [id number] 10:29:00 Test Item Value Reference Range Interpretation Comments POC-Glucose Meter (test 106 mg/dL 70-110 : TE STED AT [facility] code = 1538) [address] [facility], [facility] [address]: Mask Layout Designer/Techni mae ID = [id number] for Steven Dorman Lab Interpretation (test Normal code = 59555-4) [facility] [id number] 10:29:00 Test Item Value Reference Range Interpretation Comments POC-GLUCOSE METER 106 mg/dL 70-110 : [facility] (BEAKER) (test code [facility], = 1538) [facility] [address]: Mask Layout Designer/Techni mae ID = [id number] for Irene Dorman RAD, CHEST, 1 VIEW, NON [id number] 10:16:00Reason for exam:- >HYPOTENSIONReason for exam:->coughShould this be performed at the bedside?->YesKA[facility]: [facility] R[facility]AN : 1950 Sex: MFINAL REPORT INDICATION: HYPOTENSIONcough COMPARISON: None TECHNIQUE: Single frontal view of the chest. FINDINGS: Lungs and pleura: Mild bibasilar atelectasis No effusion.Heart and mediastinum: Normal heart size. Unremarkable mediastinal contours.Osseous structures: No acute abnormality.Other: None. IMPRESSION: No acute intrathoracic abnormality. Signed: Jayne Maloney Verified Date/Time: 09/11/2020 10:16:33 Reading Location: [facility] Radiology Reading Room XR chest 1 view portable / [id number] 10:16:00 Interface, External Ris In - 09/11/2020 10:18 AM CDTFINAL REPORT INDICATION: HYPOTENSIONcough COMPARISON: None TECHNIQUE: Single frontal view of the chest. FINDINGS: Lungs and pleura: Mild bibasilar atelectasis No effusion.Heart and mediastinum: Normal heart size. Unremarkable mediastinal contours.Osseous structures: No acute abnormality.Other: None. IMPRESSION: No acute intrathoracic abnormality. Signed: Jayne Maloney Verified Date/Time: 09/11/2020 10:16:33 Reading Location: [facility] Radiology Reading [facility] [id number] 09:54:59StoneDominga MD 09/11/2020 6:18 PMECG/EKG Interpretation Date/Time: 09/11/2020 10:53 AMPerformed by: Dominga Mendez MDAuthorized by: Dominga Mendez MD The ECG was interpreted by ED physician. This ECG was not compared with previous ECG(s).The ECG is interpreted as sinus rhythm. Rate is normal rate. Heart rate is 67 BPM.Abnormal conduction noted: right bundle branch block.[place] is left.[facility] Soft Tissue Core Needle [id number] 21:28:201. Right mid and superior neck enlarged nodes with hilar architecture measuring up to 4.8 cm. 1.5 cm enlarged left superior neck node.2. 11.5 cm left neck mass adherent to the left sternocleidomastoid muscle. Fine-needle aspiration showed crushed cells so core biopsy was performed.Interface, Radiology Results In - 09/10/2020 4:30 PM CDT FULL RESULT:Examination: US HEAD NECK SOFT TISSUE, US SOFT TISSUE CORE NEEDLE BIOPSY, US FINE NEEDLE ASPIRATION on 09/10/2020 2:51 PMClinical History: Mass of neckIndication: BiopsyComparison: None.Technique: Real-time ultrasound examination of the neck soft tissues was performed.FINDINGS:Right Lateral Neck: There are multiple enlarged nodes with hilar architecture. A right superior neck node measures 4.8 x 2.4 x 1.3 cm for example.Left Lateral Neck: The large left neck mass extends from superior to inferior and also extends posteriorly in the neck. It measures at least 11.5 x 9 x 4.8 cm. It demonstrates very heterogeneous echotexture. Mildly increased flow is present within it. It appears to be infil trating the left sternocleidomastoid muscle. The more superior enlarged node with hilar architecturemeasures 1.5 x 1.3 x 1.1 cm.Midline neck: An enlarged hypoechoic presumed lymph node node measures 1.7 x 1.5 x 1.0 cm.Consent: Informed consent was obtained from the patient for ultrasound-guided fine-needle aspiration and core needle biopsy of the 11.5 cm left neck mass.Procedure: The left neck was prepped. Under ultrasound guidance, lidocaine 1 percent was administered. A 20-gauge needle was used to make one pass which was nondiagnostic. 2 more passes using 20-gauge needles were made into an adjacent area of the mass. Crushed cells were noted. A 17-gauge sheath with 18-gauge by 2 cm throw coaxialTemno core biopsy system was used to make 4 passes. The patient tolerated the procedure well with noimmediate complications.IMPRESSION:1. Right mid and superior neck enlarged nodes with hilar architecture measuring up to 4.8 cm. 1.5 cm enlarged left superior neck node.2. 11.5 cm left neck mass adherent to the left sternocleidomastoid muscle. Fine-needle aspiration showed crushed cells so core biopsy was performed.MD Chahal HEAD NECK SOFT [id number] 21:28:201. Right mid and superior neck enlarged nodes with hilar architecture measuring up to 4.8 cm. 1.5 cm enlarged left superior neck node.2. 11.5 cm left neck mass adherent to the left sternocleidomastoid muscle. Fine-needle aspiration showed crushed cells so core biopsy was performed.Interface, Radiolog y Results In - 09/10/2020 4:30 PM CDT FULL RESULT:Examination: US HEAD NECK SOFT TISSUE, US SOFT TISSUE CORE NEEDLE BIOPSY, US FINE NEEDLE ASPIRATION on 09/10/2020 2:51 PMClinical History: Mass of neckIndication: BiopsyComparison: None.Technique: Real-time ultrasound examination of the neck soft tissues was performed.FINDINGS:Right Lateral Neck: There are multiple enlarged nodes with hilar architecture. A right superior neck node measures 4.8 x 2.4 x 1.3 cm for example.Left Lateral Neck: The large left neck mass extends from superior to inf erior and also extends posteriorly in the neck. It measures at least 11.5 x 9 x 4.8 cm. It demonstrates very heterogeneous echotexture. Mildly increased flow is present within it. It appears to be infiltrating the left sternocleidomastoid muscle. The more superior enlarged node with hilar architecturemeasures 1.5 x 1.3 x 1.1 cm.Midline neck: An enlarged hypoechoic presumed lymph node node measures 1.7 x 1.5 x 1.0 cm.Consent: Informed consent was obtained from the patient for ultrasound-guided fine-needle aspiration and core needle biopsy of the 11.5 cm left neck mass.Procedure: The left neck was prepped. Under ultrasound guidance, lidocaine 1 percent was administered. A 20-gauge needle was used to make one pass which was nondiagnostic. 2 more passes using 20-gauge needles were made into an adjacent area of the mass. Crushed cells were noted. A 17-gauge sheath with 18-gauge by 2 cm throw coaxialTemno core biopsy system was used to make 4 passes. The patient tolerated the procedure well with noimmediate complications.IMPRESSION:1. Right mid and superior neck enlarged nodes with hilar architecture measuring up to 4.8 cm. 1.5 cm enlarged left superior neck node.2. 11.5 cm left neck mass adherent to the left sternocleidomastoid muscle. Fine-needle aspiration showed crushed cells so core biopsy was performed.MD Chahal Fine Needle [id number] 21:28:201. Right mid and superior neck enlarged nodes with hilar architecture measuring up to 4.8 cm. 1.5 cm enlarged left superior neck node.2. 11.5 cm left neck mass adherent to the left sternocleidomastoid muscle. Fine-needle aspiration showed crushed cells so core biopsy was performed.Interface, Radiology Results In - 09/10/2020 4:30 PM CDT FULL RESULT:Examination: US HEAD NECK SOFT TISSUE, US SOFT TISSUE CORE NEEDLE BIOPSY, US FINE NEEDLE ASPIRATION on 09/10/2020 2:51 PMClinical History: Mass of neckIndication: BiopsyComparison: None.Technique: Real-time ultrasound examination of the neck soft tissues was performed.FINDINGS:Right Lateral Neck: There are multiple enlarged nodes with hilar architecture. A right superior neck node measures 4.8 x 2.4 x 1.3 cm for example.Left Lateral Neck: The large left neck mass extends from superior to inferior and also extends posteriorly in the neck. It measures at least 11.5 x 9 x 4.8 cm. It demonstrates very heterogeneous echotexture. Mildly increased flow is present within it. It appears to be infil trating the left sternocleidomastoid muscle. The more superior enlarged node with hilar architecturemeasures 1.5 x 1.3 x 1.1 cm.Midline neck: An enlarged hypoechoic presumed lymph node node measures 1.7 x 1.5 x 1.0 cm.Consent: Informed consent was obtained from the patient for ultrasound-guided fine-needle aspiration and core needle biopsy of the 11.5 cm left neck mass.Procedure: The left neck was prepped. Under ultrasound guidance, lidocaine 1 percent was administered. A 20-gauge needle was used to make one pass which was nondiagnostic. 2 more passes using 20-gauge needles were made into an adjacent area of the mass. Crushed cells were noted. A 17-gauge sheath with 18-gauge by 2 cm throw coaxialTeR&Vo core biopsy system was used to make 4 passes. The patient tolerated the procedure well with noimmediate complications.IMPRESSION:1. Right mid and superior neck enlarged nodes with hilar architecture measuring up to 4.8 cm. 1.5 cm enlarged left superior neck node.2. 11.5 cm left neck mass adherent to the left sternocleidomastoid muscle. Fine-needle aspiration showed crushed cells so core biopsy was performed.MD BarrientosCytology Image-Guided FNA [id number] 21:22:39 Test Item Value Reference Range Interpretation Comments Gross Description (test k7borYVrSNUhyQL7YFMhZD code = [id number]) Oke4ucb2JblORfuHAtNQqq lVVoxoVict96iVI7lB70VC 1fIMWhGaF8IXRmynY4Qmd1 ELGjIHRmmIAlU645q0wtm0 remsGeyGN9ZYCyGEYdX8Ch IS0bLIVywSVhE19zaUFcYJ N7CRUiXVQruROiQVYgNSG5 CKQxsSWpZ3caGUYaVB7mlr veIJjgEXhuDAIieUY3YYXf vXYoT7NcRMIvXEuaAOXylw l9XuSmZz9rkXVdvRqkQVoj LSEfl5bxAUZdrFEyRCZ9TB wznSFqDHFiFKAuVVl4XIMs MXrcfVIdUR6quFdeNygokH two5SzaIFfOZtxYSEgCBIt SLmmTBNtM0RLDVWhSmE2IE t7EaErNSc6POrqG5TDHICb JFE3UZJyVRc3TxV1ATv9IC PEUr4gQgI8TbP1NsJ3HSE2 GtD9ZUahqKYfTJzxMzsnKB xmIEFyaWFsIFxcZnMgMTAg IMfuNjArAR3srUquzCRmbg xiXGZzMjAgQTpccGFyXGIw EBYaXVLHzLUioA6uwtCkfI MxZ9ReTUY9MOFkxcVrPNVg ZmYgUXVpazsgOCBQYXAgU3 GpjE5lC1prEMTxRCFnhwHf ESMezVmbZGRjs4NnC4W2IP OcBNhdm7psLCNyCGgxs8Uj LIePBSMADW2YCY4rnUF8JN xVCANAN6iDnCS8RkDrlRE7 UF23RQXeOZJytLXcCDspB4 06H6ssNPQmACKnm9HkJ3Wr d9onuSNsZDfwIbgnoUUmth F7WDhWFJQBTAxPZmIqVW7b PVdJTERCRUdJTnwyfXtcZm yjviZunYBiSbKmsG6nzY3t v5mwoZEiMCokVwpjhWWyrj V9OCcTIXBQPIxUMkUrAE5e WDpJIKPWPyE0Xk65YWInPL RemFQiAIimL948DBIiHHne ZVPaf7LhK7KeHdGuNJfqVi KmVFPeeZvnm6yxbATjNUcb HliuhKLzcvA3IHwSGOZFEO eDVbYoEY1cLNqNB4IRJlN5 VaS7WtH0FCeheRgsTjmjcq DmvEZyDqIbtY6xmApugU5c ZnMyMFxjZjEgIGluIFJQTU yaoAGfQGUuW4r7f6ZweM2r cGFyXHBhciBTaXplOiAxMS 08SZnoCLIlhCecPAQiKD9n AQCnQKSeEPTto3Vka40xfd OrYm2yFZEdGMDvvVXwRYMj EQO0STK9MCfwsfGjQRHyQD aqco07MJA9j2qhfMErWCvc MbwzmRAvpcH0ZCrGLDVQTB dYSfCaEQ8dZQoCH7YYCTcT YgmwPPa7EDbjrRE0s8hlaO Wga7k8FOgzFIO9oZxmj0rp mWCwMUuqAtwwiRShgmR9SM hIFKSZIIzWDhSgNG2aXAkS D9UZUmW0FlX2AxF3F3rklC drQbirmhErbBPcOzOthC6z gVpjuX7qTbAgQQsnQoUeNM X6DGYjTgKUzO5umS32UUMu bSQkEJQ1QR3ssYxdWJFxW2 ZwZ7HcqwL9WNCnpre8MHQY MCBMNTfNOC9IXYQHDHAZHL 9VJXsKLkUkDSP6BVgfQSN2 IpSfLnV1OmL6Hy2fKIGEVZ ZSCNaRZQ3ZBKDAJVZMSZ8I UsBxO5fPODCZXqGzJYQAAJ GVIVDoNxDIFP6bIai3aXnd q4cACWUHKPWVB31VKDAGXF DZZ5DOTWACJWYOIVdXVARC Yf2JIOZWFNYRCU7QJIdTNw OlEReeeMHwTVnrTMN6FEj3 AaNbfSQhh6hbXG8nFYieIk H3BqY4PahquKHcQuAfxDEB OTUEKSaDVKBAAu8FOTWJKO NDLY8FCxAiZ2ANXW5MLk7U UMBIXJXKXI8ERFuAImKoO6 WPJU1COa7HEUOQUSAYUU4X HfUqQKJKS6JWKmGHI7diIA DKJRZWECPeCqHOFV3fYMKS DW6PZPGURMMSG85AXMTYJD XTQ9MPBE0= Immediate Assessment Borderline (test code = 9837) cellularity, further review needed, additional tissue recommended Major Classification Indeterminate A (test code = 9839) Diagnosis (test code = i5obpGCyWAOsvQO6AFBoKP 34) Lyn5vzc5ArxDVryUKuKUjx wLHrwwAgun81cPC7rI30RO 2tDLAyQyR5JNTrblZ8Mdf9 DEOfAIIpyYNbV159z6zzz5 qevnSneYO1XGBkSOWlX2Qu FS2oOLNgqQJkQ09bfMOhED V1XZMzGIWpfNPgYEMmHUC4 GCHkgAZaF4iaQUArVD4ldh xeUKbnXYjpHIKvcMO9YOOk qYJpE6GdSZLpCTmvUAYhmg a5FbWwDd9ohIOweDtyIBur YXJkXHBsYWluXGZzMjBcY2 AlMQXwGWJrNbFdgScgt4Ko DVXwUBL1GJ7cN8bgPGJedh UgbmVlZGxlIGFzcGlyYXRp y317CEQxctr7AWZjdNUmOW xpNzIwXGxpbjcyMFxjZjAg UmFyZSBhdHlwaWNhbCBkZW dlbmVyYXRlZCBjZWxscyBp llYkFALtE8mfen97tdFmx1 ZoupMgyt5jwVGaCT6mGVPp dXNoZWQgbHltcGhvaWQgdG ezd7VhZAeqNTSoN52awBZq dClccGFyfQ== Comment (test code = w0dowJUhPCCjxVI6XKHfJJ 9835) Shy5tod8TdpXZsxEJySOyd fRSiphWohm36gRZ4bG30GX 3nQMHeGmK5XOOhthY8Ckx1 IIVvGOYbaEAjI113w8zmr3 pxjjFokCA8wZknNJIechym BgK9ZLxvAGNnoaprZBw4GY qbAYCobDG3IRQngECsY4Rn ARNjQL3wdmx4SUS5JSxiEE EhHdB9LEWgeLMqOVOllHbt XWovz927KSZ5EqEjTXWqji KieWkbtL6sJtBaFLHHyTZu tZZ2B1r9tVReYbD1cKMfoP RodEpoq7LsVWCfGGCke97j CBZuzEdfdUPlg2PlvpS1fD 8jRGLuUFVtxYExSQZrtC1i CTYxRMZbrta4dWYbJMUpCA hjd1Xxkl7lDHknQSAdBUFs KYP1dBpbQEIcrBlttbWqqe Xex71opYDdAI50rFoqTILv bEpeGWFmS85dGZUuZVFyhW CsVgeenJC9VStJUcXnYgN1 JdFlAWFfciVhiBN8iGBsKM O4CHd6ORZhd49aVVVrio4= Retained/Biomarker j8gkpFHmSULxyUE3BWJjXS Testing (test code = Rec6ltb6VzjBWvcFAoHNos 9829) oTXatuVylx95vJK0uE08KB 1wQVHfFmV0DYEcgkH6Ctv6 UCUbKVApnEWpT879d9xtv8 pdtyIrpWZ2wBkvXVWxyukv KvM0DXytRGHjytuyCMg7NA dxXIZwhGL7TUVkjROkR5Je BXTcZQ8efyg2HLC2KFsuBS XoIxR8PKHkiPRrCCRazOol QXrzz252RTS3FzUqZUZcwp GitLggdO2rMlPtLCNZJmea EHXnI2ggTYX4 Informational Points i2cheQFvBFEjmIBxKpLhDF (test code = 9836) WxXFViq4xyFALntNZdWoTs MzNcZnRuYmpcdWMxXGRlZm Jjg8hff084eFTvq2dvKCSn HsG2wNOjIRIicHXqZ038SE XjONjvk1iml9RxIPRqtCDl a6D6HMLACWxdQVRZBMr1p9 yiUkEeApS7kGXbMBisW5uf ztPipWUnKWTzFKz8zK21LI SaxM0xuZAgHPhlliKdIeM6 FCnmLQTlDmC9CEKgtJWzWB CfO5xzAGOsDNuxDPXwQPdt xBItGES9sWnxv3T6lDLxiI HluBykDlArLcHdQfGEm4Hv YFj6lZxfB1AaGSTyZiZ3fI QgUGFyYWdyYXBoIEZvbnQ7 pH26KNecovL6iURvu7Pyj7 7hu659oE3llMVqVZX5VUJv VJCoqUCbYSFdWOW3VHCyeF FqS9frQYDwIF9mkeovWMmf PTbfZSZdjUD6DQEsaRCrM5 EeUTKaKHpxODFqisf8TlUt Me4noKHptUkhFPggz7zek5 mitNXvHfw6EJQnFsPkIycy YXeuo1Luo8vyYISyuv3dCT I9gJOoaEdhd6Z6rVItQXYm gPNbzaZiBJJlJgH1ESudJN 6kek75HECpYBQ2wg8usAPi yXbbbuTwcJNzKLzuT6JiLT Gvs500EWFrX3QmLDDlt9U8 egIdCnQjYKFffSX7efS9MY NkGXb9aMDmtrC8zlRmfEZt Y5fdzQ6eBJVwFU1gnlmid8 unAAnqEYenSASxdFY9ftM0 NXFbrWKpW3FbeG7zGMFfUJ ruJODwiss8JfToIc8llQGp eTcyMFxzYmtwYWdlXHBnbm NvbnRccGduZGVjXHBsYWlu XHBsYWluXGYwXGZzMjRccW qesZedwK2vNeEzXsSmINmy UU5wXKViH8hcvPFvUGGuDV ZvE6apFhXahY0hfZfwVSsa cyV7BKviO79gILB9GBI8vm XbRYYqnoRlYOCqGVWxCB3q hJBaBQMnNUSwSV6dJTI3PJ neeKXuCOIqWNZhQBQly3Vv LO5hVKLwqILnRND2NXPwx0 KpE0MqWVS5TZNzaU5rSRIj eSBVVCBNRCBBbmRlcnNvbi LUDHBxk3ykL3tsSQ9bKJbw Bn3nTIZabxdtHLYxgGFewg LkKEPgJJDuHJQxi1WiUCmn vcFcph39HRJxEM4lm3LaN2 gykNGvmFp5HGHqAHBsAUYh n9OwTKWjgb35CALbRcnoqH eiNNSdSo4qRd1hRNYkceYy TVP0QyDDCR3fibkezLWhrO dztu2sNIVtKIiyNAXwIYPa MjJcbGFuZzEwMzNcaGljaF kfJubqWnFuZBSiEUbtL4jc ZjJcZnMyMlxwYXJ9 Lab Interpretation Abnormal (test code = 39960-9) MD Johnston drug screen, [id number] 19:07:00 Test Item Value Reference Range Interpretation Comments Barbiturate Screen Negative Negative (test code = 32562-3) Benzodiazepine Screen Negative Negative (test code = 19079-7) Cocaine (Metab.) Negative Negative Screen (test code = 3397-7) Methadone Screen (test Negative Negative code = 50414-4) Opiate Screen (test Negative Negative code = 00436-7) Cannabinoid Screen Negative Negative (test code = 06435-3) Amph/Methamph Screen Negative Negative (test code = 59107-4) Phencyclidine Screen Negative Negative (test code = 06974-0) pH, UA (test code = 5.5 5.0-8.0 5803-2) DARCI (test code = DARCI) DRUG CUTOFF CONC.Cocaine 300 ng/mL Cannabinoid 50 ng/mLBenzodiazepine 200 ng/mLBarbiturate 200 ng/mLPhencyclidine 25 ng/mLOpiate 300 ng/mLMethadone 300 ng/mLAmphetamine/ 1000 ng/mL Methamphetamine This assay provides an unconfirmed qualitative test result for the clinical management of patients in emergency situations. Chain of custody not maintained. Some vujq-bge-bfitcwh medications, as well as adulterants, may cause inaccurate results. Clinical correlation should be applied. A more comprehensive drug screen or confirmation of a detected drug may be performed upon request.Mask Layout Designer ID - [id number] ID - [id number] ID - [id number] ID - [id number] ID - [id number] ID - [id number] ID - [id number] ID - [id number] Lab Interpretation Normal (test code = 06165-3) [facility] [id number] 19:07:00 Test Item Value Reference Range Interpretation Comments BARBITURATE URINE (BEAKER) (test Negative Negative code = 725) BENZODIAZEPINE SCREEN URINE (BEAKER) Negative Negative (test code = 726) COCAINE (METAB.) SCREEN (BEAKER) Negative Negative (test code = 1164) METHADONE SCREEN (BEAKER) (test code Negative Negative = 1436) OPIATE SCREEN URINE (BEAKER) (test Negative Negative code = 734) CANNABINOID SCREEN URINE (BEAKER) Negative Negative (test code = 727) AMPH/METHAMPH SCREEN (BEAKER) (test Negative Negative code = 1438) PHENCYCLIDINE SCREEN URINE (BEAKER) Negative Negative (test code = 608) PH UA (BEAKER) (test code = 467) 5.5 5.0-8.0 DRUG CUTOFF CONC.Cocaine 300 ng/mL Cannabinoid 50 ng/mLBenzodiazepine 200 ng/mLBarbiturate 200 ng/mLPhencyclidine 25 ng/mLOpiate 300 ng/mLMethadone 300 ng/mLAmphetamine/ 1000 ng/mL MethamphetamineThis assay provides an unconfirmed qualitative test result for the clinical management of patients in emergency situations. Chain of custody not maintained. Some wlhb-her-cmrdvgz medications, as well as adulterants, may cause inaccurate results. Clinical correlation should be applied. A more comprehensivedrug screen or confirmation of a detected drug may be performed upon request.Mask Layout Designer ID - [id number] ID - [id number] ID - [id number] ID - [id number] ID - [id number] ID - [id number] ID - [id number] ID - [id number] URINALYSIS W/ [id number] 16:12:00 Test Item Value Reference Range Interpretation Comments COLOR (BEAKER) (test code = Yellow 470) CLARITY (BEAKER) (test code = Clear 469) SPECIFIC GRAVITY UA (BEAKER) 1.020 1.001-1.035 (test code = 468) PH UA (BEAKER) (test code = 5.5 5.0-8.0 467) PROTEIN UA (BEAKER) (test code Negative Negative = 464) GLUCOSE UA (BEAKER) (test code Negative Negative = 365) KETONES UA (BEAKER) (test code Negative Negative = 371) BILIRUBIN UA (BEAKER) (test Negative Negative code = 462) BLOOD UA (BEAKER) (test code = Negative Negative 461) NITRITE UA (BEAKER) (test code Negative Negative = 465) LEUKOCYTE ESTERASE UA (BEAKER) Negative Negative (test code = 466) UROBILINOGEN UA (BEAKER) (test 0.2 mg/dL 0.2-1.0 code = 463) BACTERIA (BEAKER) (test code = None Seen 517) RBC UA-MANUAL (BEAKER) (test None Seen /HPF code = 1659) WBC UA-MANUAL (BEAKER) (test None Seen /HPF code = 1661) SQUAMOUS EPITHELIAL MANUAL None Seen /HPF (BEAKER) (test code = 1663) SOURCE(BEAKER) (test code = 2795) TROPONIN [id number] 15:12:00 Test Item Value Reference Range Interpretation Comments TROPONIN I (BEAKER) (test code = 397) < ng/mL 0.00-0.15 Troponin I (TnI) levels must be interpreted in the context of the presenting symptoms and the clinical findings. Elevated TnI levels indicate myocardial damage, but are not specific for ischemic heart disease. Elevated TnI levels are seen in patients with other cardiac conditions (including myocarditis and congestive heart failure), and slight TnI elevations occur in patients with other conditions, including sepsis, renal failure, acidosis, acute neurological disease, and persistent tachyarrhythmia.Mask Layout Designer ID - [id number] level 2020-09-07 15:10:00 Test Item Value Reference Range Interpretation Comments Salicylate Lvl (test code 0.9 mg/dL 20-30 L = 4024-6) DARCI (test code = DARCI) Mask Layout Designer ID - [id number] Lab Interpretation (test Abnormal code = 06466-5) [facility]etaminophen [id number] 15:10:00 Test Item Value Reference Range Interpretation Comments Acetaminophen Level (test <6.0 10-30 L code = 3298-7) DARCI (test code = ADRCI) Mask Layout Designer ID - [id number] ID - [id number] ID - [id number] ID - [id number] Lab Interpretation (test Abnormal code = 02822-0) [facility]ACETAMINOPHEN [id number] 15:10:00 Test Item Value Reference Range Interpretation Comments ACETAMINOPHEN LEVEL (BEAKER) (test < ug/mL 10.0-30.0 L code = 344) Mask Layout Designer ID - [id number] ID - [id number] ID - [id number] ID - [id number] 15:10:00 Test Item Value Reference Range Interpretation Comments SALICYLATE LEVEL (BEAKER) (test 0.9 mg/dL 20.0-30.0 L code = 764) Mask Layout Designer ID - [id number] 15:06:00 Test Item Value Reference Range Interpretation Comments Ethanol Lvl (test <10 See_Comment [Automate d code = 5643-2) message] The system which generated this result transmit jigar reference range : <=10 mg/dL. The reference range was not used to interpret this result as normal/abnormal . DARCI (test code = DARCI) Mask Layout Designer ID - [id number] Lab Interpretation Normal (test code = 44530-6) [facility] Test Item Value Reference Range Interpretation Comments ETHANOL (BEAKER) < mg/dL See_Comment [Automated message] The (test code = 400) system whi generated this result tra nsmitted reference range : <=10. The reference r [place] was not used to int erpret this result as normal/abnormal . Mask Layout Designer ID - [id number] 15:05:00 Test Item Value Reference Range Interpretation Comments Magnesium (test code = 2.3 mg/dL 1.5-3 24260-3) DARCI (test code = DARCI) Mask Layout Designer ID - [id number] ID - [id number] ID - [id number] ID - [id number] Lab Interpretation (test Normal code = 85350-8) [facility]:00 Test Item Value Reference Range Interpretation Comments MAGNESIUM (BEAKER) (test code = 2.3 mg/dL 1.5-3.0 627) Mask Layout Designer ID - [id number] ID - [id number] ID - [id number] ID - [id number] METABOLIC [id number] 15:05:00 Test Item Value Reference Range Interpretation Comments TOTAL PROTEIN 7.6 gm/dL 6.0-8.5 (BEAKER) (test code = 770) ALBUMIN (BEAKER) 4.0 g/dL 3.5-5.0 (test code = 1145) ALKALINE PHOSPHATASE 90 U/L 30-115 (BEAKER) (test code = 346) BILIRUBIN TOTAL 0.8 mg/dL 0.1-1.2 (BEAKER) (test code = 377) SODIUM (BEAKER) (test 136 meq/L 135-148 code = 381) POTASSIUM (BEAKER) 4.5 meq/L 3.6-5.5 (test code = 379) CHLORIDE (BEAKER) 98 meq/L 98-106 (test code = 382) CO2 (BEAKER) (test 24 meq/L 20-29 code = 355) BLOOD UREA NITROGEN 34 mg/dL 10-26 H (BEAKER) (test code = 354) CREATININE (BEAKER) 2.24 mg/dL 0.50-1.20 H (test code = 358) GLUCOSE RANDOM 103 mg/dL 70-110 (BEAKER) (test code = 652) CALCIUM (BEAKER) 9.8 mg/dL 8.5-10.5 (test code = 697) AST (SGOT) (BEAKER) 25 U/L 5-40 (test code = 353) ALT (SGPT) (BEAKER) 14 U/L 5-50 (test code = 347) EGFR (BEAKER) (test 35 mL/min/1.73 ESTIMA JIGAR GFR IS code = 1092) sq m NOT ACCURATE CREATININE CLEARANCE IN PREDICTING GLOMERULAR FILTRATION RATE . ESTIMATED GFR I S NOT APPLICABLE FOR DIALYSIS PATIEN TS. Mask Layout Designer ID - [id number] ID - [id number] ID - [id number] ID - [id number] ID - [id number] ID - [id number] ID - [id number] ID - [id number] ID - [id number] ID - [id number] ID - [id number] ID - [id number] ID - [id number] ID - [id number] ID - [id number] ID - [id number] 15:02:00 Test Item Value Reference Range Interpretation Comments Phosphorus (test code = 4.0 mg/dL 2.5-4.5 2777-1) DARCI (test code = DARCI) Mask Layout Designer ID - [id number] Lab Interpretation (test Normal code = 10016-5) [facility]00 Test Item Value Reference Range Interpretation Comments PHOSPHORUS (BEAKER) (test code = 4.0 mg/dL 2.5-4.5 604) Mask Layout Designer ID - [id number] W/PLT COUNT & AUTO KKGWZIWXTPUM4834-86-55 14:46:00 Test Item Value Reference Range Interpretation Comments WHITE BLOOD CELL COUNT (BEAKER) 7.7 K/ L 4.0-10.0 (test code = 775) RED BLOOD CELL COUNT (BEAKER) 4.42 M/ L 4.20-5.80 (test code = 761) HEMOGLOBIN (BEAKER) (test code = 12.3 GM/DL 13.0-16.8 L 410) HEMATOCRIT (BEAKER) (test code = 37.9 % 36.0-50.0 411) MEAN CORPUSCULAR VOLUME (BEAKER) 85.7 fL 82.0-99.0 (test code = 753) MEAN CORPUSCULAR HEMOGLOBIN 27.8 pg 27.0-33.0 (BEAKER) (test code = 751) MEAN CORPUSCULAR HEMOGLOBIN CONC 32.5 GM/DL 32.0-36.0 (BEAKER) (test code = 752) RED CELL DISTRIBUTION WIDTH 14.1 % 12.0-15.0 (BEAKER) (test code = 412) PLATELET COUNT (BEAKER) (test 207 K/CU MM 150-430 code = 756) MEAN PLATELET VOLUME (BEAKER) 9.5 fL 6.0-11.5 (test code = 754) NUCLEATED RED BLOOD CELLS 0 /100 WBC 0-0 (BEAKER) (test code = 413) NEUTROPHILS RELATIVE PERCENT 68 % (BEAKER) (test code = 429) LYMPHOCYTES RELATIVE PERCENT 15 % (BEAKER) (test code = 430) MONOCYTES RELATIVE PERCENT 13 % (BEAKER) (test code = 431) EOSINOPHILS RELATIVE PERCENT 2 % (BEAKER) (test code = 432) BASOPHILS RELATIVE PERCENT 1 % (BEAKER) (test code = 437) NEUTROPHILS ABSOLUTE COUNT 5.26 K/ L 1.80-8.00 (BEAKER) (test code = 670) LYMPHOCYTES ABSOLUTE COUNT 1.17 K/ L 1.48-4.50 L (BEAKER) (test code = 414) MONOCYTES ABSOLUTE COUNT (BEAKER) 0.98 K/ L 0.00-1.30 (test code = 415) EOSINOPHILS ABSOLUTE COUNT 0.16 K/ L 0.00-0.50 (BEAKER) (test code = 416) BASOPHILS ABSOLUTE COUNT (BEAKER) 0.04 K/ L 0.00-0.20 (test code = 417) IMMATURE GRANULOCYTES-RELATIVE 1 % 0-0 H PERCENT (BEAKER) (test code = 2801) QZW-HHGYUNT8394-60-14 00:00:00Ordered by an unspecified provider.[facility] (SARS-CoV-2) PCR-Asymptomatic [id number] 03:40:32 Test Item Value Reference Range Interpretation Comments COVID19 (SARS Not Detected Not Detected This test is a CoV-2) Result qualitative (test code = reverse-transcr iptase 76738-8) polymerase kerry n reaction (RT-PC R) developed for t [email or web address] MELISSA Dada 0 system and inte nded for the detecti on of SARS CoV-2 RNA in human nasophary ngeal specimens from patients who me et COVID-19 clinic al and/or epidemiological criteria. This assay has been approv ed by the FDA for use only under Emergency Use Authorization ( EUA) in laboratories that have been CLIA-certified to perform moderate-comple xity and high-comple xity tests. The performance characteristics of this assay were verified by the Microbiology Laboratory at [facility], CLIA Accreditation # : [id number] and CAP Accreditation # : [id number]. Result s must be interpreted within the context of all relevant clinic al and laboratory find ings and should not form the sole basis for a diagnosis or treatment decis ion. "Presumptive Positive" resul ts are due to partial amplification o f SARS-CoV-2 targ ets and indicates l ow amounts of viru s present in the specimen at or near the limit of detection. Regardless, individuals wit h "Presumptive Positive" resul ts should be manag ed per institutional guidelines as individuals pos itive for SARS-CoV-2 virus, including use o f appropriate inf ection control protoco ls. Internal contro ls are included to ass ess for possible amplification inhibitors. If inhibition is detected, testi ng is repeated and if inhibition is confirmed the specimen is res ulted as "Invalid". W hen an "Invalid" resul t occur, it is recommended to wait 3 days before submitting a ne w specimen for te sting if clinically indicated. COVID19 SARS CORE SHAPER TOP Swab Source (test code = 24956) COVID19 SARS Pre-Out of OR Indication (test Procedure code = 07142) MD BarrientosCHEM WMWOX2981-65-63 09:31:0069[facility]annCHEM DSZUH6527-90-53 09:31:20967Nxqmstve HermannCHEM DYQBX9381-18-69 09:31:004.0[facility] HermannCHEM KKNIY0009-28-47 09:31:59720Sidlofrv HermannCHEM XNXII6421-92-80 09:31:001.10 [facility] HermannCHEM BZAXN0596-80-65 09:31:0021[facility] HermannCHEM PANEL 2016-06-30 09:31:0013.0[facility] HermannCHEM XYFOQ7413-88-36 09:31:0027[facility] HermannCHEM KUYAH9340-48-88 09:31:008.2[facility] HermannCHEM VNKXB4454-01-36 09:31:49136Gaelasxu HermannCHEM ZTNXP8827-06-15 10:06:002.6[facility] NFFEZIUCHBJL9520-03-77 10:06:0015.4[facility] JfqnhesEVPQIICHTDOK3237-21-44 10:06:0069[facility] VroppdwWBRYSBAKUNTU0567-57-14 10:06:09878Dhgbmhzh Ty FUJLJOYXTBWB3615-14-74 10:06:0026[facility] QvgmqckXPHIWUDLULHS1416-62-19 10:06:00 105[facility] MivihibAGNMYCERZGIY2362-55-21 10:06:001.10[facility] ESPOXEZKRFUD5856-99-00 10:06:45957Bgxwbohg IabdkbcARGTFJGSBUUB6326-56-99 10:06:004.4[facility] ZfeuyaoLHCJAYOXRPWK3703-92-10 10:06:0021[facility] MYLVMUHPEOUE5910-50-16 10:06:008.1[facility] UmekfjpWNHXKJGOFC5858-52-05 10:06:00 0.3[facility] BywaskmTGGIFQXPPB0182-84-72 10:06:009.5[facility] HermannHEMATOLOGY 2016-06-29 10:06:001.2[facility] EddfnveLONBPNPCFM9226-22-28 10:06:001.4[facility] UdsxmtvHQSQCHRLEG0595-39-96 10:06:000.0[facility] VlkohmdSEWKXCJFOY0572-86-01 10:06:000.2[facility] ZmxkabqUNPHPGSNBF3605-55-73 10:06:00Moderate *ABN*(06/29/16 5:06 AM)[facility] SkmglclTUYBCIKXON1993-63-56 10:06:00Normal (06/29/16 5:06 AM) [facility] QrefxkhGGWKWJATJK1906-68-85 10:06:009.7[facility] HermannHEMATOLOGY 2016-06-29 10:06:0077.0[facility] NcbisvjDECVAFPQHS7642-72-95 10:06:001.6[facility] PnewkdzFINCSZQOSV6938-11-26 10:06:0011.4[facility] LpefrusQPSWBZUGAG7897-34-34 10:06:00 Test Item Value Reference Range Interpretation Comments MCH (test code = MCH) 28.6 pg 27.0-31.0 [facility] PdfzahwMVXJEUWKYJ5485-54-07 10:06:91064Esofuyvh HermannHEMATOLOGY 2016-06-29 10:06:0014.2[facility] OsselhuKAEMTPNOCG4581-69-16 10:06:0033.9[facility] WgdrjhbHEDQSKUHDU7218-20-68 10:06:008.3[facility] HlnzxttHXLGRMJNDW8222-62-57 10:06:003.11[facility] SremvxgMFGXTRGIOD5391-63-97 10:06:0012.3[facility] SHUEOSJXIK6563-15-72 10:06:0084.3[facility] EutssadSVUNVANCGW8694-15-40 10:06:00 26.2[facility] TxhnhcbESLBOUHAIS7449-74-94 10:06:008.9[facility] HermannCHEM PANEL 2016-06-28 10:42:0056[facility] HermannCHEM TEERW4159-77-52 10:42:008.3[facility] HermannCHEM JQTCP0010-59-15 10:42:004.5[facility] HermannCHEM EMISL2471-84-94 10:42:0024[facility] HermannCHEM UBNKM6787-12-24 10:42:29445Roqsvmwd HermannCHEM IQGIU2166-90-97 10:42:10256Lkzlfsrr HermannCHEM HUFRI6249-54-71 10:42:0029 [facility]annCHEM EFGKC2100-28-69 10:42:63560Frqxfbro HermannCHEM PANEL 2016-06-28 10:42:001.30[facility] HermannCHEM STUQX1045-83-22 10:42:0012.5[facility] HermannCHEM QVMTW9161-25-19 10:42:002.7[facility] UoiyvjpXQGGAKRJZE3782-26-74 10:42:009.0[facility] NdjphbiSIZJPLMEII0827-46-86 10:42:0027.7[facility] CHLYXXFUOW4941-94-07 10:42:0087.2[facility] WbspasxRLATBQFBDP4599-61-61 10:42:00 Test Item Value Reference Range Interpretation Comments MCH (test code = MCH) 28.5 pg 27.0-31.0 [facility] QmyxedmHUKFOZXYDY5877-91-90 10:42:0032.6[facility] HermannHEMATOLOGY 2016-06-28 10:42:0011.9[facility] SrigawuCLLVIDDOZS1856-62-78 10:42:003.17[facility] XohempeRSOXXAVYVJ7311-03-82 10:42:0014.6[facility] WdcfgizPAPAIRNPWO4752-30-87 10:42:05211Emrwctuz JqezagfNIVVOILYEH0138-50-94 10:42:008.6[facility] FOCNHDKPPJ7237-27-16 10:42:001.5[facility] KvktiapWIANTJXRWH4955-02-32 10:42:001.4 [facility] ZfjecerEPZNJTFCFB8800-34-08 10:42:000.1[facility] HermannHEMATOLOGY 2016-06-28 10:42:0012.3[facility] DjvrusfDPRFNKUKWJ4866-73-95 10:42:0011.6[facility] CopxpjxYGSGPTLMEL2759-48-97 10:42:001.1[facility] PxzhwdqZEDZXXJHKI5116-63-55 10:42:000.3[facility] NivwtauOVANJNTGFO4254-94-49 10:42:008.9[facility] Ty LSSXGZYPFE1234-19-09 10:42:0074.7[facility] HermannCHEM GZWPG9932-68-60 09:50:00 2.4[facility] GlsquhpJIFPWYTZQP0158-12-01 09:50:0018.6[facility] HermannHEMATOLOGY 2016-06-27 09:50:0014.7[facility] GbelpxaYNXCPHKMXD3960-23-55 09:50:0033.1[facility] TnloszjSOAGXENDFR6026-66-33 09:50:0029.5[facility] AtjsnknVQKWYWGEJE0373-31-35 09:50:00 Test Item Value Reference Range Interpretation Comments MCH (test code = MCH) 28.1 pg 27.0-31.0 [facility] AmciffiQNPMGKORBR8278-45-79 09:50:0084.7[facility] HermannHEMATOLOGY 2016-06-27 09:50:009.7[facility] ZorwnmwHSAKVINDPZ6398-01-59 09:50:09369Hnbkitcl NbbcycpOECWYACNVQ5883-77-99 09:50:009.8[facility] IahjgyfWYJLRCOZAY3817-74-28 09:50:003.48[facility] DircbnkHXRSUEAXKD7508-49-13 09:50:002.0[facility] INRVZSRVAJ8599-33-20 09:50:0076.1[facility] HjabinwZRIYDUPKDW4327-63-85 09:50:00 0.1[facility] JvrvmdoKKWWLTXBJZ9558-52-36 09:50:0012.7[facility] HermannHEMATOLOGY 2016-06-27 09:50:0014.2[facility] TlxftgrXICWIOPTJK5569-94-30 09:50:000.5[facility] VomvcbnFFMENDRORF0294-60-46 09:50:0010.6[facility] ZsknuxuAAIUUPAZAT3287-07-09 09:50:000.1[facility] TzejdjxXFNOEPTBWQ6769-36-35 09:50:002.4[facility] HermannCHEM QPEWW7730-12-28 08:42:002.0[facility] WiakypnFOPPZHWOAJ4798-16-95 08:42:000.0 [facility] CzdwevaNODFVDPLCY0679-21-15 08:42:000.0[facility] HermannPARATHYROID VTKPZLB1223-00-70 08:42:001.11[facility] HermannPARATHYROID QTKZRCU5433-41-50 08:42:001.11[facility] HermannSPECIAL PVYVUWAQC0543-82-43 08:42:006.4[facility] HermannCHEM RGNDG3242-54-78 07:28:001.6[facility] MqbuyfiASXSOOHNCW0580-86-17 07:28:00Normal (06/25/16 2:28 AM)[facility] YxhaakxSDUUZUHREZ2913-43-04 07:28:00 Normal (06/25/16 2:28 AM)[facility] HermannPARATHYROID DPTCSAE9207-61-85 07:28:00 1.06[facility] HermannPARATHYROID WIHZBCG8689-64-56 07:28:001.09[facility] WGMEMCBAMO4399-73-35 23:42:0034.0[facility] ZymjsnlIZPEEOCCDA6078-69-36 23:42:00 11.6[facility] YxgecsuIXCBETDMPZ7300-37-81 23:42:001.09[facility] HermannHEMATOLOGY 2016-06-24 23:42:004.4[facility] RqtnffrXYQQNORPPD5461-48-72 23:42:37945Bqjbeafm HermannCHEM SWILJ4644-13-53 23:11:001.4[facility] HermannCHEM QUCRT3853-86-03 23:11:002.1[facility] HermannCHEM WBYYQ7371-41-45 23:11:000.4[facility] HermannCHEM BKRGR6977-62-96 23:11:000.2[facility] HermannCHEM BTPEW3000-31-55 23:11:000.6 [facility] HermannCHEM IIRKY6997-77-77 23:11:0038[facility] HermannCHEM PANEL 2016-06-24 23:11:0042[facility] HermannCHEM SRLBO5153-49-29 23:11:0051[facility] HermannCHEM MOXIF1969-26-36 23:11:002.9[facility] HermannCHEM XMAUD5302-34-68 23:11:005.0[facility] HermannCHEM IRIYJ9631-50-74 23:11:002.3[facility] Ty SZSSJNRHZK2824-32-35 23:11:36084Vwbgntaq MbpolioJIJQNVVYIX4414-34-35 23:11:00 Test Item Value Reference Range Interpretation Comments PTT (test code = PTT) 34.9 s 22.9-35.8 [facility] BtonbuiPRNYBQLREX4016-56-16 23:11:001.27[facility] HermannHEMATOLOGY 2016-06-24 23:11:00 Test Item Value Reference Range Interpretation Comments PT (test code = PT) 16.2 s 12.0-14.7 [facility] HermannPARATHYROID RVPWEMA1335-87-83 23:11:001.09[facility] PARATHYROID CCQXEEK7664-05-39 23:11:001.10[facility] OiuiwznPBTEBZFEZA1950-15-51 22:13:67986Lwarmtch XqdbhmwOJCZTRIPCS5591-30-76 22:13:00 Test Item Value Reference Range Interpretation Comments PTT (test code = PTT) 32.8 s 22.9-35.8 [facility] CenterMwakrhkADGFOREZOG4510-53-12 22:13:00 Test Item Value Reference Range Interpretation Comments PT (test code = PT) 16.6 s 12.0-14.7 [facility] CenterPdkzixbCXDMKMVMCX0452-87-77 22:13:001.32[facility]BL[facility] B[facility] FOJQTVY5335-28-52 09:15:00Negative (06/24/16 4:15 AM)[facility] CenterannBL[facility] TNJAWEM2552-88-23 09:00:00Product available (06/24/16 4:00 AM)[facility] BLOOD BANK SYGAKFZ2481-35-03 09:00:00Product available (06/24/16 4:00 AM)[facility] CenterannBL[facility] DJHLOUM4509-35-22 09:00:00Product available (06/24/16 4:00 AM) [facility] HermannBLOOD BANK AOLGMPA2656-89-18 09:00:00Product available (06/24/16 4:00 AM)[facility] CenterChkzoprLBRRRDCHWL3356-06-96 10:18:001.05[facility] NVQRIFQMJA0961-12-03 10:18:00 Test Item Value Reference Range Interpretation Comments PTT (test code = PTT) 37.0 s 22.9-35.8 [facility] CenterToarbmkLVDLGJPQUA0609-07-14 10:18:00 Test Item Value Reference Range Interpretation Comments PT (test code = PT) 13.9 s 12.0-14.7 [facility] HermannBLOOD BANK YAQPKXK1069-65-80 10:18:00Negative (06/20/16 5:18 AM) [facility] SjtgzgkYXYJOPXOXC5070-64-19 10:18:00Normal (06/20/16 5:18 AM)[facility] OzpjqafRXAJDQOOSL9123-93-78 10:18:00Normal (06/20/16 5:18 AM)[facility] MOLECULAR WPXXEWZMVK2799-72-05 10:18:006.9[facility] HermannMOLECULAR DIAGNOSTIC 2016-06-20 10:18:457186384Tzyaoyzp HermannBLOOD BANK MKYWMKW8975-21-88 10:00:00 Product available (06/20/16 5:00 AM)[facility]annBLOOD BANK DGZTVTJ1725-70-24 10:00:00Product available (06/20/16 5:00 AM)[facility]annBLOOD BANK RESULTS 2016-06-20 10:00:00Product available (06/20/16 5:00 AM)[facility]annBLOOD BANK BGBUDSE6155-11-62 10:00:00Product available (06/20/16 5:00 AM)[facility] BACTERIAL - QEUFIHGT7156-97-26 10:33:00Negative (06/18/16 5:33 AM)[facility] HermannCHEM BBKET0471-51-34 10:33:0018[facility] HermannCHEM HNQTV9336-37-01 10:33:003.9[facility] HermannCHEM ZTULQ2835-49-67 10:33:000.8[facility] HermannCHEM BUBWD6128-57-86 10:33:0067[facility] HermannCHEM CXVNG6292-37-98 10:33:0074 [facility]annCHEM KXGAH3212-46-95 10:33:007.1[facility] HermannCHEM PANEL 2016-06-18 10:33:003.2[facility] HermannCHEM WXXYA3759-21-56 10:33:0058[facility] HermannCHEM XDZAV9685-92-73 10:33:000.4[facility] ExxugxqMUZOCZ4009-76-72 10:33:00 4.04[facility] ExcldqiPMPAUH4934-68-85 10:33:0016[facility] EwvwdocPRVOEE7696-42-46 10:33:63572Wfjheeey KleszseBYSNEP0927-22-89 10:33:0045[facility] HermannLIPIDS 2016-06-18 10:33:0082[facility] HhkqehtKPQMGL2073-14-70 10:33:80849Hdycywoh HermannSPECIAL AZFNIZYIJ8435-45-71 10:33:006.4[facility] HermannURINE AND STOOL 2016-06-18 10:33:00<=1.0[facility] HermannURINE AND FIPON3867-29-53 10:33:00 <1[facility]annURINE AND SJZJN1064-01-46 10:33:00Negative *NA*(06/18/16 5:33 AM)[facility]annURINE AND NLPSD2005-21-16 10:33:00<1[facility]INE AND QSRTI7245-34-15 10:33:00Negative (06/18/16 5:33 AM)[facility] URINE AND LRIKZ6791-86-96 10:33:00Negative (06/18/16 5:33 AM)[facility] URINE AND NIXRY2193-89-39 10:33:00Negative (06/18/16 5:33 AM)[facility] URINE AND YQNPZ6329-86-59 10:33:00Light Yellow *NA*(06/18/16 5:33 AM)[facility]annURINE AND TKGCY3546-65-42 10:33:00Clear (06/18/16 5:33 AM)[facility] URINE AND DCKZA7851-25-89 10:33:005.0[facility]annURINE AND SSCPM0380-48-13 10:33:001.008[facility]annURINE AND RTZDH4686-70-63 04:28:00Clear (06/17/16 11:28 PM)[facility]annURINE AND BYSVW3014-21-41 04:28:006.0[facility] URINE AND CLRJT8201-47-24 04:28:00Light Yellow *NA*(06/17/16 11:28 PM)[facility]annURINE AND HAWTK7556-40-17 04:28:001.010[facility]annURINE AND STOOL 2016-06-18 04:28:001[facility]annURINE AND WZZTU0323-38-77 04:28:00<=1.0 [facility]annUR[facility] AND DCDFI6035-43-27 04:28:00Negative (06/17/16 11:28 PM) [facility] AND CWFSL0965-74-58 04:28:00Negative (06/17/16 11:28 PM) [facility]annUR[facility] AND DKPKT9185-20-56 04:28:00Negative (06/17/16 11:28 PM) [facility]UR[facility] AND FIBVC5046-45-54 04:28:00Negative *NA*(06/17/16 11:28 PM)[facility] BdhhbjrQCFRFD7885-74-25 09:20:004.26[facility] KbgufpzXJMYML5269-81-28 09:20:0022[facility] AetxfcoNQTMGV3522-89-90 09:20:48359Ojcnotft HermannLIPIDS 2016-06-16 09:20:0043[facility] UceqlkhCWWCUN0168-37-28 09:20:85869Kcxtvulq PxlhgllDKWZTI0122-13-18 09:20:20305Qhecxnjh HermannCARDIAC QVWKVSN9820-09-11 00:19:42026Nobyrkws HermannCARDIAC KOOFLEU2730-26-56 00:19:007.44[facility] HermannCARDIAC WMXJEAW1873-39-32 00:19:004.4[facility] HermannCARDIAC ENZYMES 2016-06-16 00:19:0017.0[facility] HermannCARDIAC GXCCUEK7138-37-91 19:58:004.8 [facility] HermannCARDIAC ZDNZDVP5265-30-76 19:58:93930Bigjbrwz HermannCARDIAC FCFLBDW9093-82-54 19:58:0019.8[facility] HermannCARDIAC MNTXVOR0335-70-09 19:56:00 6.52[facility] HermannCHEM IEJKX3268-78-87 19:56:003.7[facility] HermannCHEM PANEL 2016-06-15 19:56:000.9[facility] HermannCHEM FAKQN6054-35-97 19:56:0019[facility] HermannCHEM APXDA7110-69-40 19:56:000.5[facility] HermannCHEM QFEIX5732-06-92 19:56:003.3[facility] HermannCHEM JKKIX4070-89-85 19:56:007.0[facility] HermannCHEM RWLJB3082-85-38 19:56:0068[facility] HermannCHEM HWFVZ1291-12-42 19:56:0051 [facility] HermannCHEM AZMRR7197-31-88 19:56:0044[facility] HermannDRUG SCREEN 2016-06-15 19:56:00Negative *NA*(06/15/16 2:56 [...] HermannIMMUNOLOGY 2016-06-15 19:56:00Negative *NA*(06/15/16 2:56 PM)[facility] HermannSPECIAL MJVYXGDWL2933-19-68 19:56:006.6[facility]annURINE AND SVGVF9351-53-08 19:56:00 Test Item Value Reference Range Interpretation Comments UA pH (test code = UA pH) 5.5 1 5.0-8.0 [facility]UR[facility] AND KAOTS0384-24-63 19:56:00 Test Item Value Reference Range Interpretation Comments UA Spec Grav (test code = UA Spec 1.020 1 Grav) [facility]UR[facility] AND PWLIL4690-46-42 19:56:00Negative (06/15/16 2:56 PM) [facility] AND IRQQX7026-62-35 19:56:00Clear (06/15/16 2:56 PM) [facility] TLODJ5140-75-14 19:56:00Negative (06/15/16 2:56 PM) [facility] JSIME2754-70-85 19:56:00Not Indicated (06/15/16 2:56 PM)[facility]UR[facility] AND RCYGG5923-80-85 19:56:00Negative (06/15/16 2:56 PM) [facility] DGEEQ7156-10-85 19:56:00Negative *NA*(06/15/16 2:56 PM) [facility]UR[facility] AND ROGKX8584-57-68 19:56:00Negative *NA*(06/15/16 2:56 PM) [facility]UR[facility] AND DGQQZ3474-81-06 19:56:00Negative (06/15/16 2:56 PM) [facility] AND UMQZB3440-04-30 19:56:00Negative (06/15/16 2:56 PM) [facility]UR[facility] AND OFCUO7357-72-92 19:56:000.2[facility]annURINE AND QBVGB8618-88-18 19:56:00Yellow *NA*(06/15/16 2:56 PM)[facility]
[2020-09-28 20:01] LABS: Hematocrit 31.8 % (39.6-49.0); MPV 8.9 fL (7.6-11.3); RBC Red Blood Cell Count 3.82 M/uL (4.33-5.43)
[2020-09-28] MEDS ORDERED: ACETAMINOPHEN 500 MG TAB ONE (20:03)
[2020-09-28] MEDS ORDERED: NA CHLORIDE 0.9% 2,000 ML ONE (20:03)
[2020-09-28 20:14] LABS: Protime INR 1.26
[2020-09-28] MEDS ORDERED: METHYLPREDNISOLONE 125 MG INJ ONE (20:16)
[2020-09-28] MEDS ORDERED: LEVALBUTEROL 1.25 MG/3 ML NEB ONE (20:17)
[2020-09-28] MEDS ORDERED: NA CHLORIDE 0.9% 250 ML ONE ×2 (20:25→20:48)
[2020-09-28] MEDS ORDERED: AZITHROMYCIN 500 MG INJ IVPB ONE (20:25)
[2020-09-28] MEDS ORDERED: CEFTRIAXONE/SWI 1gm 1 GM/10 ML SYR ONE (20:26)
[2020-09-28] MEDS ORDERED: VANCOMYCIN 1 GM/VIAL ONE (20:48)
[2020-09-28 20:53] LABS: Albumin 3.3 g/dL (3.4-5.0); Bilirubin Direct 0.2 mg/dL (0-0.2); Bilirubin Total 0.5 mg/dL (0.2-1.0); C-Reactive Protein 40.7 mg/L (<3.00); Potassium 3.7 mmol/L (3.5-5.1); Protein, Total 6.7 g/dL (6.4-8.2); Troponin (Emerg Dept Use Only) 0.02 ng/mL (0.0-0.045)
--- NOTE | 2020-09-28 21:24 | RAD REPORT ---
EXAM DESCRIPTION: RAD - Chest Single View - 09/28/2020 8:30 pm CLINICAL HISTORY: FEVER Chest pain. COMPARISON: Chest Single View dated 08/26/2020; Chest Single View dated 06/29/2020; Chest Pa And Lat (2 Views) dated 04/14/2020; Chest Pa And Lat (2 Views) dated 11/06/2019 FINDINGS: Portable technique limits examination quality. Small opacity in the right upper lobe may be a developing pneumonia. The heart is mildly prominent in size with changes of a prior CABG. No displaced fractures. IMPRESSION: Small right upper lobe infiltrate/developing pneumonia suspected.
[2020-09-28] MEDS ORDERED: NA CHLORIDE 0.9% 1,000 ML ONE (21:48)
--- NOTE | 2020-09-28 22:20 | ER ---
Nurse's Notes [facility] Name: Valerio Berg Age: 69 yrs Sex: Male : 1950 Arrival Date: 09/28/2020 Time: 18:04 Bed 5 Private MD: Diagnosis: Pneumonia, unspecified organism;Neutropenic fever;Sepsis, unspecified organism Presentation: 09/28 19:22 Chief complaint: Patient states: fever, diff breathing started today, + dry cough, iw denies n/v/d, has a hard time urinating. Coronavirus screen: Client presents with at least one sign or symptom that may indicate coronavirus-19. Ebola Screen: Patient negative for fever greater than or equal to 101.5 degrees Fahrenheit, and additional compatible Ebola Virus Disease symptoms Patient denies exposure to infectious person. Patient denies travel to an Ebola-affected area in the 21 days before illness onset. No symptoms or risks identified at this time. Initial Sepsis Screen: Does the patient meet any 2 criteria? Temp <36.0*C (96.8*F)) or > 38.3*C (100.9*F). HR > 90 bpm. Does the patient have a suspected source of infection? Yes:. Risk Assessment: Do you want to hurt yourself or someone else? Patient reports no desire to harm self or others. Onset of symptoms was September 28, 2020. 19:22 Method Of Arrival: Wheelchair iw 19:22 Acuity: ADRIÁN 2 iw Historical: - Allergies: 19:24 Betadine; iw 19:24 Povidone-Iodine; iw - PMHx: 19:24 Borderline Diabetes; COPD; Hypothyroidism; Myocardial infarction; iw - Immunization history:: Client reports receiving the 1st dose of the Covid vaccine, J\\T\\J. - Social history:: Smoking status: Patient denies any tobacco usage or history of. Screenin:00 Abuse screen: Denies threats or abuse. Nutritional screening: No deficits noted. ea Tuberculosis screening: No symptoms or risk factors identified. 20:00 Fall Risk None identified. ea Assessment: 20:00 General: Appears uncomfortable, Behavior is cooperative, quiet. Pain: Denies pain. ea Neuro: Level of Consciousness is obeys commands, lethargic, Oriented to person, place, time. Cardiovascular: Patient's skin is warm and dry. Respiratory: Airway is patent Respiratory effort is even, unlabored, Respiratory pattern is regular. Derm: Skin is dry, Skin temperature is warm. 21:30 Reassessment: Pt noted with labored breathing, sats 87% on 3L per nasal cannula, pt ea reports he is having a hard time breathing. Respiratory at bedside pt placed on BiPAP. 09/29 00:00 Reassessment: Patient and/or family updated on plan of care and expected duration. Pain ea level reassessed. Pt remains on BiPAP. Resting with eyes closed, respirations even and unlabored. Chest expansions france and symmetrical. 02:33 Reassessment: Patient and/or family updated on plan of care and expected duration. Pain ea level reassessed. Pt remains on BiPAP. Resting with eyes closed, respirations even and unlabored. Chest expansions france and symmetrical. 03:43 Reassessment: [facility] ambulance at [facility] for transfer pt to [facility]. Pt left ED via ea stretcher per EMS. Pt tolerating well. Vital Signs: 09/28 19:22 BP 93 / 53; Pulse 109; Resp 20 S; Temp 102.2; Pulse Ox 95% on R/A; Weight 95.25 kg; iw Height 5 ft. 10 in. (177.80 cm); 21:00 BP 71 / 40; Pulse 69; Resp 20; Pulse Ox 98% ; ea 21:20 BP 81 / 48; Pulse 125; Resp 28; Pulse Ox 96% on 4 lpm NC; ea 22:00 BP 84 / 53; Pulse 123; Resp 20; Pulse Ox 100% on BiPAP; ea 22:10 BP 86 / 57; Pulse 116; Resp 21; Pulse Ox 97% on BiPAP; ea 22:15 BP 77 / 56; Pulse 117; Resp 22; Pulse Ox 97% on 100% BiPAP; ea 22:20 BP 84 / 58; Pulse 117; Resp 20; Pulse Ox 97% on 30% BiPAP; ea 22:25 BP 74 / 60; Pulse 116; Resp 20; Pulse Ox 97% on 30% BiPAP; ea 23:18 Temp 98.4; dh4 23:28 BP 95 / 72; Pulse 100; Resp 20; Pulse Ox 98% on R/A; ea 09/29 00:00 BP 77 / 49; Pulse 80; Resp 19; Pulse Ox 98% on 30% BiPAP; ea 00:30 BP 69 / 41; Pulse 64; Resp 15; Pulse Ox 98% on 30% BiPAP; ea 01:00 BP 100 / 61; Pulse 93; Resp 14; Pulse Ox 96% on BiPAP; ea 01:30 BP 91 / 56; Pulse 83; Resp 16; Pulse Ox 97% on 30% BiPAP; ea 02:00 BP 84 / 57; Pulse 90; Resp 15; Pulse Ox 98% on 30% BiPAP; ea 02:30 BP 109 / 68; Pulse 87; Resp 20; Pulse Ox 98% on 30% BiPAP; ea 03:00 BP 106 / 74; Pulse 96; Resp 15; Pulse Ox 98% on 30% BiPAP; ea 03:23 Temp 97.8; ea 09/28 19:22 Body Mass Index 30.13 (95.25 kg, 177.80 cm) iw 09/28 22:00 Pt currently on BiPAP ea ED Course: 18:04 Patient arrived in ED. rg4 19:24 Triage completed. iw 19:25 Arm band placed on. iw 19:28 Tyler Danielle NP is PHCP. pm1 19:28 Madeline Darby MD is Attending Physician. pm1 19:51 Skylar Sigala RN is Primary Nurse. ea 20:00 Patient has correct armband on for positive identification. Bed in low position. Call ea light in reach. Side rails up X2. threat monitoring analyst on. Pulse ox on. NIBP on. 20:31 Chest Single View XRAY In Process Unspecified. EDMS 22:09 Assisted provider with central line placement. Set up central line tray. Triple lumen ea line placed in right femoral. Line placed by Cl JIMENEZ Placement verified by blood return, Patient tolerated well. 22:09 BIPAP Sent. bs2 22:29 Amylase, Serum Sent. bs2 22:29 Basic Metabolic Panel Sent. bs2 22:29 Blood Culture Adult (2) Sent. bs2 22:29 C-Reactive Protein Sent. bs2 22:29 CBC with Diff Sent. bs2 22:30 CPK Sent. bs2 22:30 Ckmb Sent. bs2 22:30 LFT's Sent. bs2 22:30 Lactate Sent. bs2 22:30 Lipase Sent. bs2 22:30 Procalcitonin Sent. bs2 22:30 Protime (+inr) Sent. bs2 22:30 Ptt, Activated Sent. bs2 22:30 Troponin (emerg Dept Use Only) Sent. bs2 23:12 initiated a transfer with Mayda from [facility]. mw2 23:28 Patient transferred, IV remains in place. ea 23:37 Page cath inserted, using sterile technique, 18 Fr., by me, balloon inflated, to ea gravity drainage. 23:50 connected Tyler Danielle NP with from [facility]. mw2 09/29 01:16 called Mayda from [facility] to get a update on the transfer for the patient. She mw2 stated "we got acceptance from the [facility] side, we are just waiting for a bed and I will call you back.". 01:25 administrative approval given by Sudheer Wilson/ patient has been accepted to [facility] bed G701/ Dr. Jarrett accepted the patient in transfer/ report to be called to [phone]. 02:34 Jonna Delfino called back from [facility] called to inform us that [facility] denied due to no beds. [facility] denied due to no beds. She will check with [facility] and [facility] to see if they have beds. 02:50 Jonna Saleh from [facility] called back to inform us that [address] has ICU beds, so she will call us back. Administered Medications: 09/28 19:45 Drug: Acetaminophen 1000 mg Route: PO; ea 20:00 Follow up: Response: No adverse reaction ea 19:45 Drug: NS 0.9% (30 ml/kg) 30 ml/kg Route: IV; Rate: bolus; Site: left antecubital; ea 22:29 Follow up: IV Status: Completed infusion bs2 20:01 Drug: SOLU-Medrol (methylPrednisoLONE) 125 mg Route: IVP; Site: left antecubital; ea 21:00 Follow up: Response: No adverse reaction ea 20:01 Drug: Xopenex (levalbuterol) (3) 1.25 mg Route: Inhalation; ea 20:03 Drug: Rocephin (cefTRIAXone) 1 grams Route: IV; Rate: calculated rate; Site: left ea antecubital; 21:00 Follow up: Response: No adverse reaction; IV Status: Completed infusion; IV Intake: 10mlea 20:21 Not Given (Physician Discretion): AZITHromycin 500 mg IVPB once over 1 hrs; (mix in 250 pm1 mL NS) 20:32 Drug: vancoMYCIN 1 grams Route: IVPB; Infused Over: 2 hrs; Site: left antecubital; ea 22:28 Follow up: IV Status: Completed infusion bs2 22:12 Drug: Jhon-Synephrine (phenylephrine) 50 mcg/min Route: IV; Rate: calculated rate; Site: ea right femoral; 09/29 03:46 Follow up: Response: No adverse reaction; IV Status: Infusion continued upon transfer ea 09/28 22:45 Drug: Levophed (norepinephrine) (4 mg/250 mL D5W 4 mcg/min Route: IV; Rate: calculated bs2 rate; Site: Other; 09/29 03:46 Follow up: Response: No adverse reaction; IV Status: Infusion continued upon transfer ea Intake: 09/28 21:00 IV: 10ml; Total: 10ml. ea Outcome: 22:12 Instructed on the need for transfer, Demonstrated understanding of instructions. ea 22:20 ER care complete, transfer ordered by MD. pm1 09/29 03:37 Condition: stable bs2 03:40 Transferred by ground EMS Transfer form completed. ea 03:46 Patient left the ED. ea Addendum: 10/04/2020 12:12 Addendum: Culture Results: Positive blood culture. Pt was transferred to [facility] and results faxed to David (ICU charge nurse). Signatures: Dispatcher [employer] Santa Stearns RN RN iw Calderon, Audri RN RN aa5 Tyler Danielle NP DRUM SPRAYER pm1 Chantale Callaway rg4 Skylar Sigala RN RN ea [place], MyKena 2 Avila Yu 4 Celia Ceja RN RN bs2 Corrections: (The following items were deleted from the chart) 09/28 19:24 19:22 Pulse 109bpm; Resp 20bpm; Spontaneous; Pulse Ox 95% RA; Temp 102.2F; 95.25 kg; iw Height 5 ft. 10 in.; BMI: 30.1; iw
[2020-09-28] MEDS ORDERED: Phenylephrine HCl 10 MG/ML 1 ML VIAL ONE (22:21)
[2020-09-28] MEDS ORDERED: NA CHLORIDE 0.9% 500 ML ONE (22:21)
--- NOTE | 2020-09-28 22:21 | EDPHYS ---
Physician Documentation [facility] Name: Valerio Berg Age: 69 yrs Sex: Male : 1950 Arrival Date: 09/28/2020 Time: 18:04 Bed 5 Private MD: ED Physician Madeline Darby HPI: 09/28 19:46 This 69 yrs old Black Male presents to ER via Wheelchair with complaints of Fever. pm1 19:46 The patient or guardian reports cough, with no sputum, difficulty breathing. Onset: The pm1 symptoms/episode began/occurred today. Severity of symptoms: in the emergency department the symptoms are actually worse. Modifying factors: The symptoms are alleviated by nothing, the symptoms are aggravated by nothing. Associated signs and symptoms: Pertinent positives: fever, increased urination, Pertinent negatives: chest pain, diarrhea, nausea, vomiting. Recently started chemotherapy at [facility] a few weeks ago for lymphoma. Historical: - Allergies: 19:24 Betadine; iw 19:24 Povidone-Iodine; iw - PMHx: 19:24 Borderline Diabetes; COPD; Hypothyroidism; Myocardial infarction; iw - Immunization history:: Client reports receiving the 1st dose of the Covid vaccine, J\T\J. - Social history:: Smoking status: Patient denies any tobacco usage or history of. ROS: 19:46 Eyes: Negative for injury, pain, redness, and discharge, ENT: Negative for injury, pm1 pain, and discharge, Neck: Negative for injury, pain, and swelling. 19:46 Cardiovascular: Negative for chest pain, palpitations, and edema. 19:46 Abdomen/GI: Negative for abdominal pain, nausea, vomiting, diarrhea, and constipation, Back: Negative for injury and pain. 19:46 MS/Extremity: Negative for injury and deformity, Skin: Negative for injury, rash, and discoloration. 19:46 Neuro: Negative for headache, weakness, numbness, tingling, and seizure. 19:46 Constitutional: Positive for chills, fever. 19:46 Respiratory: Positive for cough, with no reported sputum, shortness of breath. 19:46 : Positive for urinary frequency, Negative for burning with urination, difficulty urinating. Exam: 19:46 Head/Face: Normocephalic, atraumatic. pm1 19:46 Back: No spinal tenderness. No costovertebral tenderness. Full range of motion. Skin: Warm, dry with normal turgor. Normal color with no rashes, no lesions, and no evidence of cellulitis. MS/ Extremity: Pulses equal, no cyanosis. Neurovascular intact. Full, normal range of motion. 19:46 Constitutional: The patient appears alert, awake, well developed, well hydrated, well groomed, well nourished, febrile, obviously ill. 19:46 Eyes: Exam is negative for acute changes, Extraocular movements: no acute changes, Conjunctiva: no acute changes, no injection, Sclera: no acute changes, icterus, is not appreciated. 19:46 ENT: Exam is negative for acute changes, Mouth: Lips: normal, Oral mucosa: normal, pink and intact, moist, Posterior pharynx: no acute changes, Tonsils: no enlargement, no erythema, no exudate. 19:46 Cardiovascular: Rate: tachycardic, Rhythm: regular, Pulses: no pulse deficits are appreciated, Heart sounds: normal, normal S1and S2, Edema: is not appreciated. 19:46 Respiratory: the patient does not display signs of respiratory distress, Respirations: no acute changes, Breath sounds: wheezin:46 Abdomen/GI: Inspection: abdomen appears normal, Palpation: abdomen is soft and non-tender. 19:46 Neuro: Exam negative for acute changes, Orientation: is normal, Mentation: is normal, Motor: is normal, moves all fours. Vital Signs: 19:22 BP 93 / 53; Pulse 109; Resp 20 S; Temp 102.2; Pulse Ox 95% on R/A; Weight 95.25 kg; iw Height 5 ft. 10 in. (177.80 cm); 21:00 BP 71 / 40; Pulse 69; Resp 20; Pulse Ox 98% ; ea 21:20 BP 81 / 48; Pulse 125; Resp 28; Pulse Ox 96% on 4 lpm NC; ea 22:00 BP 84 / 53; Pulse 123; Resp 20; Pulse Ox 100% on BiPAP; ea 22:10 BP 86 / 57; Pulse 116; Resp 21; Pulse Ox 97% on BiPAP; ea 22:15 BP 77 / 56; Pulse 117; Resp 22; Pulse Ox 97% on 100% BiPAP; ea 22:20 BP 84 / 58; Pulse 117; Resp 20; Pulse Ox 97% on 30% BiPAP; ea 22:25 BP 74 / 60; Pulse 116; Resp 20; Pulse Ox 97% on 30% BiPAP; ea 23:18 Temp 98.4; dh4 23:28 BP 95 / 72; Pulse 100; Resp 20; Pulse Ox 98% on R/A; ea 09/29 00:00 BP 77 / 49; Pulse 80; Resp 19; Pulse Ox 98% on 30% BiPAP; ea 00:30 BP 69 / 41; Pulse 64; Resp 15; Pulse Ox 98% on 30% BiPAP; ea 01:00 BP 100 / 61; Pulse 93; Resp 14; Pulse Ox 96% on BiPAP; ea 01:30 BP 91 / 56; Pulse 83; Resp 16; Pulse Ox 97% on 30% BiPAP; ea 02:00 BP 84 / 57; Pulse 90; Resp 15; Pulse Ox 98% on 30% BiPAP; ea 02:30 BP 109 / 68; Pulse 87; Resp 20; Pulse Ox 98% on 30% BiPAP; ea 03:00 BP 106 / 74; Pulse 96; Resp 15; Pulse Ox 98% on 30% BiPAP; ea 03:23 Temp 97.8; ea 09/28 19:22 Body Mass Index 30.13 (95.25 kg, 177.80 cm) iw 09/28 22:00 Pt currently on BiPAP ea Procedures: 22:12 Central Line: the site was prepped with Betadine, in sterile fashion, a triple lumen jr8 catheter was inserted, in the right femoral vein, in 1 attempts. placement was verified, by blood return, the site was dressed with 4X4s, Tegaderm, foam tape, using sterile technique, the patient tolerated the procedure, well. MDM: 19:28 Patient medically screened. pm1 22:18 Data reviewed: vital signs. pm1 22:18 Counseling: I had a detailed discussion with the patient and/or guardian regarding: the pm1 historical points, exam findings, and any diagnostic results supporting the discharge/admit diagnosis, lab results, radiology results, the need to transfer to another facility, No ICU bed capacity. 09/29 01:31 ED course: Acceptance by Bud Jarrett MD without report. pm1 09/28 19:30 Order name: Amylase, Serum pm1 09/28 19:30 Order name: Basic Metabolic Panel pm1 09/28 19:30 Order name: Blood Culture Adult (2) pm09/28 19:30 Order name: C-Reactive Protein pm09/28 19:30 Order name: CBC with Diff pm09/28 19:30 Order name: CPK pm09/28 19:30 Order name: Ckmb pm09/28 19:30 Order name: LFT's pm09/28 19:31 Order name: Lactate pm09/28 19:31 Order name: Lipase pm09/28 19:31 Order name: Procalcitonin pm09/28 19:31 Order name: Protime (+inr) pm09/28 19:31 Order name: Ptt, Activated pm09/28 19:31 Order name: Troponin (emerg Dept Use Only) pm09/28 19:31 Order name: Flu; Complete Time: 20:44 pm09/28 19:31 Order name: Strep pm09/28 19:31 Order name: Amylase; Complete Time: 21:06 EDMS 09/28 19:31 Order name: Basic Metabolic Panel; Complete Time: 21:06 EDMS 09/28 19:31 Order name: Blood Culture ED09/28 19:31 Order name: C-Reactive Protein; Complete Time: 21:06 EDMS 09/28 19:31 Order name: CBC with Automated Diff; Complete Time: 22:32 EDMS 09/28 19:31 Order name: Creatine Phosphokinase; Complete Time: 21:06 EDMS 09/28 19:31 Order name: CKMB Creatine Kinase MB; Complete Time: 21:06 EDMS 09/28 19:31 Order name: Liver (Hepatic) Function; Complete Time: 21:06 EDMS 09/28 19:31 Order name: Lactate; Complete Time: 21:06 EDMS 09/28 19:31 Order name: Lipase; Complete Time: 21:06 EDMS 09/28 19:31 Order name: Procalcitonin; Complete Time: 21:06 EDMS 09/28 19:31 Order name: Protime (+INR); Complete Time: 20:22 EDMS 09/28 19:31 Order name: Chest Single View XRAY; Complete Time: 21:30 pm09/28 19:31 Order name: Cardiac monitoring; Complete Time: 20:22 pm09/28 19:31 Order name: EKG - Nurse/Tech; Complete Time: 20:22 pm1 09/28 19:31 Order name: IV Saline Lock - Large Bore; Complete Time: 20:22 pm1 09/28 19:31 Order name: Labs collected and sent; Complete Time: 20:22 pm1 09/28 19:31 Order name: O2 Per Protocol; Complete Time: 20:22 pm1 09/28 19:31 Order name: O2 Sat Monitoring; Complete Time: 20:22 pm1 09/28 19:31 Order name: PTT, Activated Partial Thromb; Complete Time: 20:22 EDMS 09/28 19:31 Order name: Troponin (Emerg Dept Use Only); Complete Time: 21:06 EDMS 09/28 20:20 Order name: Manual Differential; Complete Time: 22:32 EDMS 09/28 20:43 Order name: Throat Culture EDMS 09/28 21:20 Order name: SARS-COV-2 RT PCR; Complete Time: 21:24 EDMS 09/28 21:31 Order name: BIPAP pm1 09/28 23:37 Order name: Page; Complete Time: 23:37 ea 09/29 00:15 Order name: Lactate Sepsis 2 HR Follow-up EDMS 09/29 03:35 Order name: Glucose, Ancillary Testing EDMS Administered Medications: 09/28 19:45 Drug: Acetaminophen 1000 mg Route: PO; ea 20:00 Follow up: Response: No adverse reaction ea 19:45 Drug: NS 0.9% (30 ml/kg) 30 ml/kg Route: IV; Rate: bolus; Site: left antecubital; ea 22:29 Follow up: IV Status: Completed infusion bs2 20:01 Drug: SOLU-Medrol (methylPrednisoLONE) 125 mg Route: IVP; Site: left antecubital; ea 21:00 Follow up: Response: No adverse reaction ea 20:01 Drug: Xopenex (levalbuterol) (3) 1.25 mg Route: Inhalation; ea 20:03 Drug: Rocephin (cefTRIAXone) 1 grams Route: IV; Rate: calculated rate; Site: left ea antecubital; 21:00 Follow up: Response: No adverse reaction; IV Status: Completed infusion; IV Intake: 10mlea 20:21 Not Given (Physician Discretion): AZITHromycin 500 mg IVPB once over 1 hrs; (mix in 250 pm1 mL NS) 20:32 Drug: vancoMYCIN 1 grams Route: IVPB; Infused Over: 2 hrs; Site: left antecubital; 22:28 Follow up: IV Status: Completed infusion bs2 22:12 Drug: Jhon-Synephrine (phenylephrine) 50 mcg/min Route: IV; Rate: calculated rate; Site: ea right femoral; 09/29 03:46 Follow up: Response: No adverse reaction; IV Status: Infusion continued upon transfer ea 09/28 22:45 Drug: Levophed (norepinephrine) (4 mg/250 mL D5W 4 mcg/min Route: IV; Rate: calculated bs2 rate; Site: Other; 09/29 03:46 Follow up: Response: No adverse reaction; IV Status: Infusion continued upon transfer ea Disposition: 04:14 Co-signature as Attending Physician, Madeline Darby MD. ma2 Disposition Summary: 09/28/20 22:20 Transfer Ordered Transfer Location: Other Acute Care Facility pm1 Reason: Higher level of care pm1 Condition: Stable pm1 Problem: new pm1 Symptoms: have improved pm1 Accepting Physician: Bud Jarrett(09/29/20 03:46) fady Diagnosis - Pneumonia, unspecified organism pm1 - Neutropenic fever pm1 - Sepsis, unspecified organism pm1 Forms: - Medication Reconciliation Form pm1 - SBAR form pm1 Signatures: Dispatcher [employer] Santa Stearns RN RN iw Roszak, Josh, PA PA jr8 Tyler Danielle, FASHION STYLING INTERN FASHION STYLING INTERN pm1 Skylar Sigala RN RN ea Alzahri, Mohammad, MD MD ma2 Celia Ceja RN RN bs2 Corrections: (The following items were deleted from the chart) 09/28 20:12 19:32 CORONAVIRUS+MR.LAB.BRZ ordered. ANKIT PHAM 09/29 01:32 0705 22:20 [facility] pm1 pm1 09/29 03:46 01:32 Bud Jarrett 1 ea
[2020-09-28 22:27] LABS: Blood Morphology Comment NOT SEEN (NOT SEEN); Platelet Estimate DECR
[2020-09-28] MEDS ORDERED: NOREPINEPHRINE 4mg/D5W 250mL 4 MG/250 ML BAG IV ONE (23:07)
[2020-09-29] MEDS ORDERED: NA CHLORIDE 0.9% 500 ML ONE ×3 (00:02→03:50)
[2020-09-29] MEDS ORDERED: Phenylephrine HCl 10 MG/ML 1 ML VIAL ONE ×3 (00:02→03:50)
[2020-09-29 04:18] VITALS: O2SAT 98
[2020-09-29 04:22] VITALS: BP 106/74
[2020-09-29 04:23] VITALS: TEMP 97.8
--- NOTE | 2020-09-29 16:11 | EKG ---
Test Date: 2020-09-28 Test Time: 19:38:32 Leacher: JUAN A MEASUREMENT RESULTS: Intervals: Rate: 157 DE: 80 QRSD: 148 QT: 340 QTc: 549 Morrison: P: DE: 80 QRS: -73 T: 241 INTERPRETIVE STATEMENTS: Sinus tachycardia with short DE with frequent premature ventricular complexes Left axis deviation Right bundle branch block Inferior infarct, age undetermined Anterolateral infarct, age undetermined Abnormal ECG Compared to ECG 07/03/2020 09:35:39 Ventricular premature complex(es) now present Short DE interval now present Atrial fibrillation no longer present Myocardial infarct finding still present Electronically Signed On 09-29-20 16:08:34 CDT by Janak Moscoso
== END 2020-09-29 03:46 ==
LOC: ER 18:01
PROC: 06HM33Z Insertion of Infusion Device into Right Femoral Vein, Percutaneous Approach (ICD-10-PCS; principal; 2020-09-29)
DX: A41.9 Sepsis, unspecified organism (principal); J18.9 Pneumonia, unspecified organism; C85.90 Non-Hodgkin lymphoma, unspecified, unspecified site; Z20.822 Contact with and (suspected) exposure to COVID-19
CPT/HCPCS: 96365; 96367; 93005; 87040 ×2; 87070; 85025; 80048; 36415; 82150; 82550; 87205 ×2; 85610; 82947; 80076; 87081; 83605 ×2; 85730; 87077 ×2; 87186 ×2; 84484; 82553; 83690; 84145; 86140; 87804 ×2; 71045; 94660; 51702; 96375; 99285; 96366; 36556; U0003; J2370 ×3; J0456; J3370; J0696; J7050 ×2; J7040 ×3; J7030 ×2; J2930

== ENCOUNTER 2021-04-21 01:48 | Inpatient (IN) | payer OTHER ==
--- OUTSIDE RECORDS SUMMARY | 2021-04-21 02:01 | XMS REPORT | Clinical Summary ---
:1950 Author Organization [facility] Address [address] [place] [address] Care Team Providers Name Role Phone Angelika Veliz MD Unavailable Praveen Cervantes MD, M Primary Care Provider MD Sarah Primary Care Provider Allergies Active Allergy Reactions Severity Noted Date Comments Povidone-Iodine Rash Low 09/16/2020 Medications Medication Sig Dispensed Refills Start End Status Date Date albuterol (VENTOLIN Inhale 1-2 puffs 0 Active HFA,PROAIR HFA) 90 by mouth every 6 0 mcg/puff inhaler (six) hours as needed for wheezing or shortness of breath. atorvastatin TAKE 1 TABLET BY 0 Active (LIPITOR) 80 mg MOUTH DAILY AT 1 tablet BEDTIME clopidogrel (PLAVIX) TAKE 1 TABLET BY 0 Active 75 mg tablet MOUTH DAILY 1 levocetirizine Take 5 mg by 0 Ac tive (XYZAL) 5 MG tablet mouth every 0 evening. levothyroxine TAKE 1 TABLET BY 0 Active (SYNTHROID, MOUTH DAILY 1 LEVOTHROID) 25 mcg tablet Tradjenta 5 mg tab Take 5 mg by 0 Active mouth daily. 1 montelukast TAKE 1 TABLET BY 0 A ctive (SINGULAIR) 10 mg MOUTH DAILY 1 tablet pantoprazole Take 40 mg by 0 Act rere (PROTONIX) 40 mg EC mouth daily with 0 tablet breakfast. potassium chloride Take 10 mEq by 0 Active (MICRO-K) 10 mEq CR mouth daily. 1 capsule Hold for serum potassium greater than 4.5 mEq/L rOPINIRole (REQUIP) Take 1 mg by 0 Active 1 mg tablet mouth 2 (two) 1 times a day as needed (restless legs). traMADol (ULTRAM) 50 TAKE 1 TABLET BY 0 Active mg tablet MOUTH THREE 1 TIMES DAILY NEEDED FOR PAIN senna-docusate Take 1 tablet by 0 Active (sennosides-docusate mouth twice sodium) 8.6 mg-50 mg daily. Hold for tablet loose stools. sodium Swish and spit 0 Activ e chloride-sodium 10 mL every 6 1 bicarbonate (SALT (six) hours. AND SODA) Use 2 mouthwashIndications teaspoonfuls and : Diffuse high grade dissolve in 1 B-cell lymphoma quart (960 mL) of warm water. To prevent mouth sores ondansetron (Zofran) Take 1 tablet (8 30 tablet 2 Active 8 mg mg) by mouth 1 tabletIndications: every 8 (eight) Diffuse high grade hours as needed B-cell lymphoma for nausea or vomiting (first choice). prochlorperazine Take 1 tablet (5 60 tablet 2 Active (Compazine) 5 mg mg) by mouth 1 tabletIndications: every 6 (six) Diffuse high grade hours as needed B-cell lymphoma for nausea or vomiting. valACYclovir Take 1 tablet 30 tablet 5 Act rere (VALTREX) 500 mg (500 mg) by 1 tabletIndications: mouth daily. To Diffuse high grade prevent viral B-cell lymphoma infections. apixaban (ELIQUIS) 5 Take 1 tablet (5 0 Active mg mg) by mouth 1 tabletIndications: every 12 Diffuse high grade (twelve) hours. B-cell lymphoma ipratropium-albutero Inhale 1 vial (3 0 Active l (DUO-NEB) 0.5 mL) by 1 mg-2.5 mg/3 mL nebulization nebulizer every 6 (six) solutionIndications: hours. Acute respiratory failure with hypoxia metoprolol tartrate Take 1 tablet 0 Active (LOPRESSOR) 25 mg (25 mg) by mouth 1 tabletIndications: every 12 Diffuse high grade (twelve) hours. B-cell lymphoma Hold for systolic blood pressure less than 110 mmHg or heart rate less than 60 beats per minute. torsemide (DEMADEX) Take 1 tablet 0 Active 20 mg (20 mg) by mouth 1 tabletIndications: daily. Hold for Diffuse high grade systolic blood B-cell lymphoma pressure less than 110 mmHg. entecavir Take 1 tablet 10 tablet 2 Active (BARACLUDE) 0.5 mg (0.5 mg) by 1 tabletIndications: mouth every 72 Hepatitis B carrier hours. To prevent viral infection amoxicillin-clavulan TAKE 1 TABLET BY 0 Discontinued ate (AUGMENTIN) 500 MOUTH TWICE 1 021 (Not mg-125 mg per tablet DAILY WITH FOOD Applicable) aspirin 81 mg EC Take 81 mg by 0 Discontinued tablet mouth daily. 1 021 (Stop T aking at Discharge) carvedilol (COREG) TAKE 1 TABLET BY 0 08/26 Discontinued 6.25 mg tablet MOUTH TWICE 1 021 (Re order) DAILY WITH FOOD benzonatate TAKE 2 C PO Q 8 0 Di scontinued (TESSALON) 100 mg H PRF COUGH AND 0 021 (Not capsule CONGESTION Applicabl e) dicyclomine (BENTYL) TAKE 1 T PO Q 6 0 19/05 Discontinued 20 mg tablet H PRN 0 021 (Not Applicable ) furosemide (LASIX) TAKE 1 TABLET BY 0 08/26 8/2 Discontinued 80 mg tablet MOUTH TWICE 1 021 (Reor nahomy) DAILY metoprolol succinate TAKE 1 TABLET BY 0 Discontinued (TOPROL XL) 25 mg 24 MOUTH DAILY 1 021 (Not hr tablet Applicable ) predniSONE TK 2 TS PO QD 0 Disco ntinued (DELTASONE) 10 mg FOR 3 DAYS THEN 0 021 tablet TK 1 T PO D Entresto 49-51 mg TAKE 1 TABLET BY 0 08/28/09/23 Discontinued tab per tablet MOUTH TWICE 021 (St op Taking at DAILY Discharge) tamsulosin (FLOMAX) TAKE 1 CAPSULE 0 09/16 Discontinued 0.4 mg 24 hr capsule BY MOUTH EVERY 1 021 (Not DAY Applicable ) torsemide (DEMADEX) TAKE 1 TABLET BY 0 19/05 Discontinued 20 mg tablet MOUTH TWICE 1 021 (Not DAILY Applicable ) predniSONE Take 1 tablet 30 tablet 2 Disco ntinued (DELTASONE) 50 mg (50 mg) by mouth 1 021 (Stop Taking at tabletIndications: today 09/16/20. Discharge) Lymphoma extent of Starting on the involvement not day of specified chemotherapy take 2 tablets (100 mg) every day for 5 days. sacubitriL-valsartan Take 1 tablet by 60 tablet 0 Discontinued (ENTRESTO) 24 mg-26 mouth every 12 1 021 (Stop Taking at mg tab per (twelve) hours. Dis charge) tabletIndications: Hold for History of systolic blood myocardial pressure less infarction than 110mmHg. predniSONE Take 2 tablets 2 tablet 0 Disc ontinued (DELTASONE) 50 mg (100 mg) by 1 021 (Stop Taking at tabletIndications: mouth daily for Discharge) Diffuse high grade 1 dose. On 09/23 B-cell lymphoma senna-docusate Take 1 tablet by 30 tablet 2 Discontinued (SENOKOT-S) 8.6 mouth 2 (two) 1 021 (Stop Taking at mg-50 mg times a day as Disch arge) tabletIndications: needed for Diffuse high grade constipation. B-cell lymphoma Hold for loose stools. entecavir Take 1 tablet 30 tablet 5 Discon tinued (BARACLUDE) 0.5 mg (0.5 mg) by 1 021 (Reorder) tabletIndications: mouth daily. Hepatitis B carrier carvedilol (COREG) Take 1 tablet 60 tablet 1 Discontinued 3.125 mg (3.125 mg) by 1 021 (Stop Taking at tabletIndications: mouth twice Discharge) History of daily. Hold for myocardial systolic blood infarction pressure less than 110 mmHg or heart rate less than 60 bpm furosemide (LASIX) Take 1 tablet 30 tablet 0 Discontinued 40 mg (40 mg) by mouth 1 021 (St op Taking at tabletIndications: twice daily. Discharge) History of Hold for myocardial systolic blood infarction pressure less than 110 mmHg entecavir Take 1 tablet 0 Discon tinued (BARACLUDE) 0.5 mg (0.5 mg) by 1 021 (Reorder) tabletIndications: mouth every 72 Hepatitis B carrier hours. Active Problems Problem Noted Date Paroxysmal atrial fibrillation 03/16/2021 Last Assessment & Plan: Patient was seen by inpatient cardiologi in September 2020 for atrial fibrillation with last EKG done October 28, 2020 showing return to sinus rhythm. Patient is asymptomatic for palpitations or irregular h eartbeats. He is currently on carvedilo l 6.25 mg p.o. twice daily in addition to Eliquis 5 mg p.o. twice daily with no bleeding problems. Unfortunately [place] therefor e we do not have any updated labs nor EK G since his visit in October. 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 Clostridioides difficile infection 11/02/2020 Acute respiratory failure with hypoxia 09/29/2020 Pneumonia due to other specified bacteria 09/29/2020 Severe sepsis with septic shock 09/29/2020 Bilateral pneumonia 09/29/2020 Anemia in malignant neoplastic disease 09/29/2020 Chronic obstructive pulmonary disease 09/16/2020 Diffuse high grade B-cell lymphoma 09/16/2020 Cancer Staging: Clinical: Stage III (IPI : Score 3) - Unsigned Mass of neck 09/07/2020 History of myocardial infarction 09/07/2020 History of placement of stent for coronary artery dise ase 09/07/2020 Hepatitis B carrier History of hepatitis C Long-term current use of rituximab Patient immunocompromised Acute injury of kidney Hyperuricemia Chronic right-sided heart failure Last Assessment & Plan: Echocardiogram done November 06, 2020 show s patient has preserved ejection fraction of 50% but evidence of right ventricular systolic function being reduced with elevated RVSP. Right heart catheterizati on done 11/02/2020 showed evidence of mi ld pulmonary hypertension with a pulmonary capillary wedge pressure of 11 mmHg. Patient continues to have problems with productive cough, chronic shortness of br eath and orthopnea for which he is on fu rosemide 80 mg p.o. twice daily. I explained to patient that based off of his heart catheterization a lot of his symptoms may be secondary to his emphysema as de scribed by the pulmonary team or primary lung disease for which he needs to follow-up with his private pulmonary physician. Unfortunately since patient does not have any updated labs over the last 4 mo nths and is not complaining of any worse lidia of his edema or shortness of breath I have asked for him to continue taking his current regimen of furosemide 80 mg p.o. twice daily. 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 Cancer Staging: Clinical stage from 09/07: Stage IVB (cT0, cN3, cM0) - Unsigned Pathologic: Signed by TONY Quinones on 09/15/2020 Encounters Date Type Specialty Care Team Description 04/16/2021 Orders Only Lymphoma and Kimberlee Blackmon Diffuse high grade B-cell lymphoma (Primary Dx); Myeloma TONY Rogers 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 03/16/2021 Telemedicine Cardiology Vesta Knight, Chronic rig ht-sided heart failure (Primary Dx); TONY Paroxysmal atrial fibrillation Katelin Ceja PA 12/25/2020 Orders Only Lymphoma and Kimberlee Blackmon Diffuse high grade B-cell lymphoma (Primary Dx); Myeloma TONY Rogers Infection due t o Mycobacterium avium 12/23/2020 Telemedicine Lymphoma and Dru Smith Diffuse high grade Myeloma B-cell lymphoma 12/22/2020 Telephone Lymphoma and Mulugeta Myeloma Bailey Zapata RN 12/16/2020 Telemedicine Lymphoma and Dru Smith Diffuse high grade Myeloma B-cell lymphoma 12/15/2020 Telephone Lymphoma and Lynne Dalal RN 12/14/2020 Documentation Radiation Oncology Princess Pringle PA 12/09/2020 Telephone Radiation Oncology Antonette Corona Appoint ment (Left Angelika, RN Message - Mr. Apolonia tavares provided this n rikki and number and gave permission for me to call this perso n stating "she is my ride and will b ring me for my appointm ents." Left VM re: upc oming appts on 12/11. Also left RO Heme cl inic # & asked for ret urn call for schedu simon.) 12/07/2020 Hospital Encounter Radiation Oncology Len, No Show MD Jesika Azar Penny, MD 12/07/2020 Telemedicine Infectious Dru Smith, Hepatitis B a ntibody Diseases Swapnil Moran MD 12/07/2020 Orders Only Cardiology Vesta Knight, Paroxysmal atrial PA fibrillation (P rimary Dx) 12/07/2020 Telephone Radiation Oncology Antonette Corona Appoint ment (Patient a C, RN no show for appointment. He states he did not come for his appointment today d/t weather. In quired about reliable rides for visits; willian fraga provided a numb er and name (Scott [phone]) a nd says she can be cont acted about ride stat us. He was reminded of his upcoming appoin tments on Monday for X RAYs and Ortho follo w up. ) 12/07/2020 Telephone Radiation Oncology Antonette Corona RN 12/07/2020 Telephone Infectious Fartun Murrieta Appointment Diseases APURVA Jones 12/03/2020 Hospital Encounter Yomaira Johnson MD 12/02/2020 Telemedicine Lymphoma and Dru Smith Diffuse high grade Myeloma B-cell lymphoma 12/01/2020 Telephone Lymphoma and Lynne Dalal RN 12/01/2020 Case Management Alyssa Darling RN 11/25/2020 Telemedicine Lymphoma and Ahmed, Sairah, Diffuse high grade Myeloma B-cell lymphoma 11/24/2020 Telephone Lymphoma and [place] Myeloma Bailey Zapata RN 11/16/2020 Telemedicine Lymphoma and Kimberlee Blackmon Diffuse high grade Myeloma TONY Rogers B-cell lymphoma 11/16/2020 Documentation Radiation Oncology Armando Craven MD PhD 11/14/2020 Orders Only Lymphoma and Elizabeth Wolf Myeloma FITTING ROOM ASSOCIATE 11/13/2020 Orders Only Orthopaedics [place], Unspecified fra cture Charito J, PA of left toe(s) , initial encount er for closed fracture (Primary Dx) 11/13/2020 Orders Only Orthopaedics Denny Morrison Unspecified fracture S, PA of left toe(s), initial encount er for closed fracture (Primary Dx) 11/13/2020 Orders Only Cardiology Vesta Knight, Perla rig ht heart PA failure (Primar y Dx) 11/13/2020 Orders Only Lymphoma Yanet Gurrola Diffuse high grade R, PAPER PRODUCTS INSPECTOR B-cell lymphoma (Primary Dx) 11/12/2020 Orders Only Radiology Beck Martines, RT 11/09/2020 Orders Only Cardiology Mishel Tijerina MD 11/05/2020 Telephone Cardiology Evi Turner APN 11/03/2020 Orders Only Lymphoma and Kristina Blake Myeloma MD PhD 10/30/2020 Orders Only Physical Therapy Geena Espinosa, PT 10/29/2020 Orders Only Denny Nayak, Proteinuria o f undiagnosed cau se (Primary Dx) 10/27/2020 Ancillary Procedure Radiology Kristina Blake MD PhD 10/26/2020 Orders Only Lymphoma and Mari Lovell Diffuse high grade B-cell lymphoma (Primary Dx); Myeloma E, PAPER PRODUCTS INSPECTOR Other specified types of non-Hodgkin lymphoma, extranodal and solid organ sites 10/23/2020 Orders Only Cardiology Cj Hinds NP 10/02/2020 Orders Only Vascular Access Darrell, and Procedures TONY Lara 09/29/2020 Hospital Encounter Lymphoma Jarrett, Chronic o bstructive pulmonary disease, not otherwise specified (Primary Dx); - Bud Acute respirato ry failure with hypoxia; 11/14/2020 MD Junior Acute injury of kidney; Randolph Villareal, Severe sepsis with septic shock; Diffuse high grade B-cell lymphoma; Vivien, Cancer; Alba Trimble, Clostridioide s difficile infection; Hepatitis B carrier; Darryl Banerjee MD Ischemic cardiomyopathy Kristina Blake MD PhD Randolph Dunn MD 09/29/2020 Travel 09/25/2020 Telephone Vascular Access Porter Adamsley L, port plac ement and tuber helper scheduled 09/25/2020 Prep for Surgery Vascular Access Darrell, Diffuse high grade B- cell lymphoma (Primary Dx); and Procedures TONY Lara Chronic obstr uctive pulmonary disease, not otherwise specified; Chronic right-s ided heart failure; Mass of neck; History of myoc ardial infarction; History of plac ement of stent for coronary artery disease; Patient immunoc ompromised 09/25/2020 Orders Only Vascular Access Darrell, Diffuse high grade and Procedures TONY Lara B-cell lympho ma (Primary Dx) 09/24/2020 Telephone Vascular Access WoodPorterJacquie L, port plac ement and tuber helper scheduled 09/24/2020 Orders Only Infectious Swapnil Rose, Long-term c urrent use Diseases of rituximab (P rimary Dx) 09/23/2020 Orders Only Lymphoma and Dru Smith, Diffuse high grade Myeloma B-cell lymphoma (Primary Dx) 09/23/2020 Orders Only Lymphoma and Priest, Diffuse high gr josephine Myeloma Anna, P[employer]ODU[employer] INSPECTOR B-cell lymphoma (Primary Dx) 09/18/2020 Orders Only Infectious Swapnil Rose, Hepatitis B antibody Diseases MD present (Primar y Dx) 09/17/2020 Hospital Encounter Lymphoma Kristina Blake Diffus e high grade B-cell lymphoma (Primary Dx); - PhD Hepatitis B carrier; 09/23/2020 Dru Smith, History of my ocardial infarction 09/17/2020 Travel 09/16/2020 Consult Lymphoma and Dru Smith Diffuse high grade B-cell lymphoma (Primary Dx); Myeloma Lymphoma extent of involvement not specified 09/16/2020 Telemedicine Head and Neck Sheng Morton Mass of nec k Surgery Jr., 09/16/2020 Ancillary Procedure Radiology Davon, TONY Recio 09/16/2020 Orders Only Lymphoma and Aparna, Avila, Myeloma PharmD 09/16/2020 Travel 09/15/2020 Hospital Encounter Nas Saenz MD 09/15/2020 Hospital Encounter Nas Saenz MD 09/15/2020 Orders Only Head and Neck Jayne Rodriguez PA Lymphoma e xtent of Surgery involvement not specified (Prim kelly Dx) 09/14/2020 Orders Only Head and Neck Jayne Rodriguez PA Surgery 09/14/2020 Orders Only Head and Neck Sheng Morton Lymphoma ex tent of Surgery MD [place] involvement not specified (Prim kelly Dx) 09/11/2020 Orders Only Surgical Oncology Davon, Hepatitis C antibody Anabelle test positive ( Primary TONY Grewal Dx) 09/10/2020 Ancillary Procedure Radiology Davon, Mass of neck; Anabelle Abnormal findin gs on diagnostic imaging of skull and head, not elsewhere classified ; TONY Grewal Abnormal findin gs on diagnostic imaging of skull and head, not elsewhere classified 09/10/2020 Ancillary Procedure Radiology Davon, Mass of neck TONY Recio 09/10/2020 Orders Only Surgical Oncology Davon, Mass of ne ck (Primary Anabelle Dx) TONY Grewal 09/10/2020 Travel 09/09/2020 Travel 09/08/2020 Orders Only Infectious [place], SARS-CoV-2 vaccination Diseases 09/08/2020 Documentation Physical Therapy EvansNupur Calix, PT 09/07/2020 Office Visit Head and Neck Sheng Morton Mass of nec k (Primary Dx); Surgery MD [place] Abnormal findin gs on diagnostic imaging of skull and head, not elsewhere classified 09/07/2020 NPR Patient Access Services 09/07/2020 Travel 09/05/2020 Clinical Support Infectious Nuzhat Van, Suspect ed COVID-19 Diseases RN (Primary Dx) 09/05/2020 Travel 09/04/2020 Orders Only Surgical Oncology Davon, Mass of ne ck (Primary Anabelle Dx) TONY Grewal after 04/21/2020 Surgical History Surgery Date Site/Laterality Comments KNEE SURGERY left knee ANKLE SURGERY left ankle PARTIAL HIP ARTHROPLASTY left hi p CORONARY ARTERY BYPASS GRAFT Medical History Medical History Date Comments Myocardial infarction Prediabetes Hypertension Hyperlipidemia Foot-drop left foot drop, sinc e Bacteremia 09/29/2020 pseudomonas Social History Tobacco Use Types Packs/Day Years Used Date Former Smoker Cigarettes 3 50 Smokeless Tobacco: Never Used Tobacco Cessation: Counseling Given: Yes Comments: stopped smoking 15 years ago Alcohol Use Standard Drinks/Week Comments Not Currently 0 (1 standard drink = 0.6 oz pure alcoho l) Sex Assigned at Date Recorded Not on file Job Start Date Occupation Industry Not on file Not on file Not on file Obstetrics History Last Filed Vital Signs Vital Sign Reading Time Taken Comments Blood Pressure 118/76 11/14/2020 12:17 PM CDT Pulse 65 11/14/2020 1:27 PM CDT Temperature 36.6 C (97.9 F) 11/14/2020 12:17 PM CDT Respiratory Rate 18 11/14/2020 1:27 PM CDT Oxygen Saturation 96% 11/14/2020 12:17 PM CDT Inhaled Oxygen Concentration - - Weight 95.8 kg (211 lb 3.2 oz) 11/13/2020 4:45 AM CDT Height 170 cm (5' 6.93") 10/29/2020 11:22 AM CDT Body Mass Index 33.15 10/29/2020 11:22 AM CDT Plan of Treatment Date Type Specialty Care Team Description 04/23/2021 Appointment Lab Kimberlee Blackmon PA [address] [place], [place] [address] (Wo rk) 04/23/2021 Ancillary Procedure Radiology Kimberlee Blackmon PA [address] [place], [place] [address] (Wo rk) 04/23/2021 Office Visit Lymphoma and Myeloma Carmela Smith MD [address] [place], [place] [address] (Wo rk) Health Maintenance Due Date Last Done Comments COVID-19 Vaccination (1) 1962 Implants Implanted Type Area Product Planner Device Shelf Model / Identifier Expiration Date Ser ial / Lot Metalware Metalware Right: Arm Description: pt sts he has a metal ryan i n r arm Stent Stent Heart Procedures Procedure Name Priority Date/Time Associated Comments Diagnosis MANUAL DIFFERENTIAL AM 11/14/2020 2:17 Resu lts for this AM CDT procedure are i n the results section. Results CBC AM 11/14/2020 2:17 Results for this AM CDT procedure are i n the results section. CALCIUM LEVEL TOTAL AM 11/14/2020 2:17 Resu lts for this AM CDT procedure are i n the results section. .GLOMERULAR FILTRATION AM 11/14/2020 2:17 R esults for this RATE AM CDT procedure are i n the results section. SERUM CREATININE AM 11/14/2020 2:17 Results for this AM CDT procedure are i n the results section. ELECTROLYTE PANEL AM 11/14/2020 2:17 Result s for this AM CDT procedure are i n the results section. BLOOD UREA NITROGEN AM 11/14/2020 2:17 Resu lts for this AM CDT procedure are i n the results section. GLUCOSE LEVEL AM 11/14/2020 2:17 Results fo r this AM CDT procedure are i n the results section. FRACTIONATED BILIRUBIN AM 11/14/2020 2:17 R esults for this AM CDT procedure are i n the results section. TOTAL PROTEIN AM 11/14/2020 2:17 Results fo r this AM CDT procedure are i n the results section. ASPARTATE AM 11/14/2020 2:17 Results for this AMINOTRANSFERASE AM CDT procedure a re in the results section. ALANINE AM 11/14/2020 2:17 Results for this AMINOTRANSFERASE AM CDT procedure a re in the results section. ALKALINE PHOSPHATASE AM 11/14/2020 2:17 Res ults for this AM CDT procedure are i n the results section. ALBUMIN LEVEL AM 11/14/2020 2:17 Results fo r this AM CDT procedure are i n the results section. URIC ACID AM 11/14/2020 2:17 Results for this AM CDT procedure are i n the results section. COMPLETE BLOOD COUNT W/ AM 11/14/2020 2:17 DIFFERENTIAL AM CDT LACTATE DEHYDROGENASE AM 11/14/2020 2:17 Re sults for this AM CDT procedure are i n the results section. PHOSPHORUS LEVEL AM 11/14/2020 2:17 Results for this AM CDT procedure are i n the results section. MAGNESIUM LEVEL AM 11/14/2020 2:17 Results for this AM CDT procedure are i n the results section. COMPREHENSIVE METABOLIC AM 11/14/2020 2:17 PANEL AM CDT HEPATIC FUNCTION PANEL AM 11/14/2020 2:17 AM CDT OSCILLATORY PEP Routine 11/13/2020 2:00 PM CDT OSCILLATORY PEP Routine 11/13/2020 8:00 AM CDT TMP INTERPRETATION Routine 11/13/2020 3:47 Resul ts for this ANTIBODY SCREEN AM CDT procedure ar e in NEGATIVE the results section. CLOT EXPIRATION DATE Routine 11/13/2020 3:47 Res ults for this AM CDT procedure are i n the results section. MANUAL DIFFERENTIAL AM 11/13/2020 3:47 Resu lts for this AM CDT procedure are i n the results section. Results CBC AM 11/13/2020 3:47 Results for this AM CDT procedure are i n the results section. CALCIUM LEVEL TOTAL AM 11/13/2020 3:47 Resu lts for this AM CDT procedure are i n the results section. .GLOMERULAR FILTRATION AM 11/13/2020 3:47 R esults for this RATE AM CDT procedure are i n the results section. SERUM CREATININE AM 11/13/2020 3:47 Results for this AM CDT procedure are i n the results section. ELECTROLYTE PANEL AM 11/13/2020 3:47 Result s for this AM CDT procedure are i n the results section. BLOOD UREA NITROGEN AM 11/13/2020 3:47 Resu lts for this AM CDT procedure are i n the results section. GLUCOSE LEVEL AM 11/13/2020 3:47 Results fo r this AM CDT procedure are i n the results section. FRACTIONATED BILIRUBIN AM 11/13/2020 3:47 R esults for this AM CDT procedure are i n the results section. TOTAL PROTEIN AM 11/13/2020 3:47 Results fo r this AM CDT procedure are i n the results section. ASPARTATE AM 11/13/2020 3:47 Results for this AMINOTRANSFERASE AM CDT procedure a re in the results section. ALANINE AM 11/13/2020 3:47 Results for this AMINOTRANSFERASE AM CDT procedure a re in the results section. ALKALINE PHOSPHATASE AM 11/13/2020 3:47 Res ults for this AM CDT procedure are i n the results section. ALBUMIN LEVEL AM 11/13/2020 3:47 Results fo r this AM CDT procedure are i n the results section. ANTIBODY SCREEN Routine 11/13/2020 3:47 Results for this AM CDT procedure are i n the results section. ABORH Routine 11/13/2020 3:47 Results for this AM CDT procedure are i n the results section. PROTHROMBIN TIME AM 11/13/2020 3:47 Results for this AM CDT procedure are i n the results section. URIC ACID AM 11/13/2020 3:47 Results for this AM CDT procedure are i n the results section. APTT AM 11/13/2020 3:47 Results for this AM CDT procedure are i n the results section. TYPE AND SCREEN Routine 11/13/2020 3:47 AM CDT COMPLETE BLOOD COUNT W/ AM 11/13/2020 3:47 DIFFERENTIAL AM CDT LACTATE DEHYDROGENASE AM 11/13/2020 3:47 Re sults for this AM CDT procedure are i n the results section. PHOSPHORUS LEVEL AM 11/13/2020 3:47 Results for this AM CDT procedure are i n the results section. MAGNESIUM LEVEL AM 11/13/2020 3:47 Results for this AM CDT procedure are i n the results section. COMPREHENSIVE METABOLIC AM 11/13/2020 3:47 PANEL AM CDT HEPATIC FUNCTION PANEL AM 11/13/2020 3:47 AM CDT OSCILLATORY PEP Routine 11/13/2020 2:00 AM CDT OSCILLATORY PEP Routine 11/12/2020 8:00 PM CDT OSCILLATORY PEP Routine 11/12/2020 2:00 PM CDT OSCILLATORY PEP Routine 11/12/2020 8:00 AM CDT US RENAL Routine 11/12/2020 7:36 Results for this AM CDT procedure are i n the results section. MANUAL DIFFERENTIAL AM 11/12/2020 4:08 Resu lts for this AM CDT procedure are i n the results section. Results CBC AM 11/12/2020 4:08 Results for this AM CDT procedure are i n the results section. CALCIUM LEVEL TOTAL AM 11/12/2020 4:08 Resu lts for this AM CDT procedure are i n the results section. .GLOMERULAR FILTRATION AM 11/12/2020 4:08 R esults for this RATE AM CDT procedure are i n the results section. SERUM CREATININE AM 11/12/2020 4:08 Results for this AM CDT procedure are i n the results section. ELECTROLYTE PANEL AM 11/12/2020 4:08 Result s for this AM CDT procedure are i n the results section. BLOOD UREA NITROGEN AM 11/12/2020 4:08 Resu lts for this AM CDT procedure are i n the results section. GLUCOSE LEVEL AM 11/12/2020 4:08 Results fo r this AM CDT procedure are i n the results section. FRACTIONATED BILIRUBIN AM 11/12/2020 4:08 R esults for this AM CDT procedure are i n the results section. TOTAL PROTEIN AM 11/12/2020 4:08 Results fo r this AM CDT procedure are i n the results section. ASPARTATE AM 11/12/2020 4:08 Results for this AMINOTRANSFERASE AM CDT procedure a re in the results section. ALANINE AM 11/12/2020 4:08 Results for this AMINOTRANSFERASE AM CDT procedure a re in the results section. ALKALINE PHOSPHATASE AM 11/12/2020 4:08 Res ults for this AM CDT procedure are i n the results section. ALBUMIN LEVEL AM 11/12/2020 4:08 Results fo r this AM CDT procedure are i n the results section. URIC ACID AM 11/12/2020 4:08 Results for this AM CDT procedure are i n the results section. COMPLETE BLOOD COUNT W/ AM 11/12/2020 4:08 DIFFERENTIAL AM CDT LACTATE DEHYDROGENASE AM 11/12/2020 4:08 Re sults for this AM CDT procedure are i n the results section. PHOSPHORUS LEVEL AM 11/12/2020 4:08 Results for this AM CDT procedure are i n the results section. MAGNESIUM LEVEL AM 11/12/2020 4:08 Results for this AM CDT procedure are i n the results section. COMPREHENSIVE METABOLIC AM 11/12/2020 4:08 PANEL AM CDT HEPATIC FUNCTION PANEL AM 11/12/2020 4:08 AM CDT OSCILLATORY PEP Routine 11/12/2020 2:00 AM CDT OSCILLATORY PEP Routine 11/11/2020 8:00 PM CDT URINALYSIS WITH Routine 11/11/2020 5:06 Results for this MICROSCOPIC IF PM CDT procedure are in INDICATED the results section. PROTEIN / CREATININE Now 11/11/2020 5:06 Res ults for this RATIO URINE PM CDT procedure are i n the results section. ALBUMIN LEVEL URINE Now 11/11/2020 5:06 Resu lts for this PM CDT procedure are i n the results section. UREA NITROGEN URINE Now 11/11/2020 5:06 Resu lts for this PM CDT procedure are i n the results section. CREATININE URINE, Now 11/11/2020 5:06 Result s for this RANDOM PM CDT procedure are i n the results section. SODIUM URINE Now 11/11/2020 5:06 Results for this PM CDT procedure are i n the results section. URINALYSIS MICROSCOPIC Now 11/11/2020 5:06 R esults for this PM CDT procedure are i n the results section. TRANSFUSE RED BLOOD Routine 11/11/2020 2:21 CELLS PM CDT OSCILLATORY PEP Routine 11/11/2020 2:00 PM CDT OSCILLATORY PEP Routine 11/11/2020 8:00 AM CDT PRBC PRODUCT READY FOR Routine 11/11/2020 7:00 R esults for this ACCESS CONSULTANT AM CDT procedure are i n the results section. PREPARE RBC Routine 11/11/2020 7:00 Results for this AM CDT procedure are i n the results section. MANUAL DIFFERENTIAL AM 11/11/2020 4:16 Resu lts for this AM CDT procedure are i n the results section. Results CBC AM 11/11/2020 4:16 Results for this AM CDT procedure are i n the results section. CALCIUM LEVEL TOTAL AM 11/11/2020 4:16 Resu lts for this AM CDT procedure are i n the results section. .GLOMERULAR FILTRATION AM 11/11/2020 4:16 R esults for this RATE AM CDT procedure are i n the results section. SERUM CREATININE AM 11/11/2020 4:16 Results for this AM CDT procedure are i n the results section. ELECTROLYTE PANEL AM 11/11/2020 4:16 Result s for this AM CDT procedure are i n the results section. BLOOD UREA NITROGEN AM 11/11/2020 4:16 Resu lts for this AM CDT procedure are i n the results section. GLUCOSE LEVEL AM 11/11/2020 4:16 Results fo r this AM CDT procedure are i n the results section. FRACTIONATED BILIRUBIN AM 11/11/2020 4:16 R esults for this AM CDT procedure are i n the results section. TOTAL PROTEIN AM 11/11/2020 4:16 Results fo r this AM CDT procedure are i n the results section. ASPARTATE AM 11/11/2020 4:16 Results for this AMINOTRANSFERASE AM CDT procedure a re in the results section. ALANINE AM 11/11/2020 4:16 Results for this AMINOTRANSFERASE AM CDT procedure a re in the results section. ALKALINE PHOSPHATASE AM 11/11/2020 4:16 Res ults for this AM CDT procedure are i n the results section. ALBUMIN LEVEL AM 11/11/2020 4:16 Results fo r this AM CDT procedure are i n the results section. URIC ACID AM 11/11/2020 4:16 Results for this AM CDT procedure are i n the results section. COMPLETE BLOOD COUNT W/ AM 11/11/2020 4:16 DIFFERENTIAL AM CDT LACTATE DEHYDROGENASE AM 11/11/2020 4:16 Re sults for this AM CDT procedure are i n the results section. PHOSPHORUS LEVEL AM 11/11/2020 4:16 Results for this AM CDT procedure are i n the results section. MAGNESIUM LEVEL AM 11/11/2020 4:16 Results for this AM CDT procedure are i n the results section. COMPREHENSIVE METABOLIC AM 11/11/2020 4:16 PANEL AM CDT HEPATIC FUNCTION PANEL AM 11/11/2020 4:16 AM CDT OSCILLATORY PEP Routine 11/11/2020 2:00 AM CDT OSCILLATORY PEP Routine 11/10/2020 8:00 PM CDT XR FOOT 3+ VW LEFT Routine 11/10/2020 4:20 Resul ts for this PM CDT procedure are i n the results section. OSCILLATORY PEP Routine 11/10/2020 2:00 PM CDT COVID-19 (SARS-COV-2) Now 11/10/2020 1:41 Re sults for this PCR-ASYMPTOMATIC MC PM CDT procedur e are in the results section. OSCILLATORY PEP Routine 11/10/2020 8:00 AM CDT TMP CROSSMATCH Routine 11/10/2020 7:55 Results f or this INTERPRETATION AM CDT procedure are in the results section. CLOT EXPIRATION DATE Routine 11/10/2020 7:55 Res ults for this AM CDT procedure are i n the results section. TMP INTERPRETATION Routine 11/10/2020 7:55 Resul ts for this ANTIBODY SCREEN AM CDT procedure ar e in NEGATIVE the results section. MANUAL DIFFERENTIAL AM 11/10/2020 7:55 Resu lts for this AM CDT procedure are i n the results section. Results CBC AM 11/10/2020 7:55 Results for this AM CDT procedure are i n the results section. CALCIUM LEVEL TOTAL AM 11/10/2020 7:55 Resu lts for this AM CDT procedure are i n the results section. .GLOMERULAR FILTRATION AM 11/10/2020 7:55 R esults for this RATE AM CDT procedure are i n the results section. SERUM CREATININE AM 11/10/2020 7:55 Results for this AM CDT procedure are i n the results section. ELECTROLYTE PANEL AM 11/10/2020 7:55 Result s for this AM CDT procedure are i n the results section. BLOOD UREA NITROGEN AM 11/10/2020 7:55 Resu lts for this AM CDT procedure are i n the results section. GLUCOSE LEVEL AM 11/10/2020 7:55 Results fo r this AM CDT procedure are i n the results section. FRACTIONATED BILIRUBIN AM 11/10/2020 7:55 R esults for this AM CDT procedure are i n the results section. TOTAL PROTEIN AM 11/10/2020 7:55 Results fo r this AM CDT procedure are i n the results section. ASPARTATE AM 11/10/2020 7:55 Results for this AMINOTRANSFERASE AM CDT procedure a re in the results section. ALANINE AM 11/10/2020 7:55 Results for this AMINOTRANSFERASE AM CDT procedure a re in the results section. ALKALINE PHOSPHATASE AM 11/10/2020 7:55 Res ults for this AM CDT procedure are i n the results section. ALBUMIN LEVEL AM 11/10/2020 7:55 Results fo r this AM CDT procedure are i n the results section. ANTIBODY SCREEN Routine 11/10/2020 7:55 Results for this AM CDT procedure are i n the results section. ABORH Routine 11/10/2020 7:55 Results for this AM CDT procedure are i n the results section. PROTHROMBIN TIME AM 11/10/2020 7:55 Results for this AM CDT procedure are i n the results section. URIC ACID AM 11/10/2020 7:55 Results for this AM CDT procedure are i n the results section. APTT AM 11/10/2020 7:55 Results for this AM CDT procedure are i n the results section. TYPE AND SCREEN Routine 11/10/2020 7:55 AM CDT COMPLETE BLOOD COUNT W/ AM 11/10/2020 7:55 DIFFERENTIAL AM CDT LACTATE DEHYDROGENASE AM 11/10/2020 7:55 Re sults for this AM CDT procedure are i n the results section. PHOSPHORUS LEVEL AM 11/10/2020 7:55 Results for this AM CDT procedure are i n the results section. MAGNESIUM LEVEL AM 11/10/2020 7:55 Results for this AM CDT procedure are i n the results section. COMPREHENSIVE METABOLIC AM 11/10/2020 7:55 PANEL AM CDT HEPATIC FUNCTION PANEL AM 11/10/2020 7:55 AM CDT OSCILLATORY PEP Routine 11/10/2020 2:00 AM CDT OSCILLATORY PEP Routine 11/09/2020 8:00 PM CDT OSCILLATORY PEP Routine 11/09/2020 2:00 PM CDT PERIPHERAL SMR FOR DOC Routine 11/09/2020 11:10 R esults for this REVIEW AM CDT procedure are i n the results section. BLOODCULTURE Now 11/09/2020 11:02 Results for this AM CDT procedure are i n the results section. OSCILLATORY PEP Routine 11/09/2020 8:00 AM CDT MANUAL DIFFERENTIAL AM 11/09/2020 2:45 Resu lts for this AM CDT procedure are i n the results section. Results CBC AM 11/09/2020 2:45 Results for this AM CDT procedure are i n the results section. CALCIUM LEVEL TOTAL AM 11/09/2020 2:45 Resu lts for this AM CDT procedure are i n the results section. .GLOMERULAR FILTRATION AM 11/09/2020 2:45 R esults for this RATE AM CDT procedure are i n the results section. SERUM CREATININE AM 11/09/2020 2:45 Results for this AM CDT procedure are i n the results section. ELECTROLYTE PANEL AM 11/09/2020 2:45 Result s for this AM CDT procedure are i n the results section. BLOOD UREA NITROGEN AM 11/09/2020 2:45 Resu lts for this AM CDT procedure are i n the results section. GLUCOSE LEVEL AM 11/09/2020 2:45 Results fo r this AM CDT procedure are i n the results section. FRACTIONATED BILIRUBIN AM 11/09/2020 2:45 R esults for this AM CDT procedure are i n the results section. TOTAL PROTEIN AM 11/09/2020 2:45 Results fo r this AM CDT procedure are i n the results section. ASPARTATE AM 11/09/2020 2:45 Results for this AMINOTRANSFERASE AM CDT procedure a re in the results section. ALANINE AM 11/09/2020 2:45 Results for this AMINOTRANSFERASE AM CDT procedure a re in the results section. ALKALINE PHOSPHATASE AM 11/09/2020 2:45 Res ults for this AM CDT procedure are i n the results section. ALBUMIN LEVEL AM 11/09/2020 2:45 Results fo r this AM CDT procedure are i n the results section. URIC ACID AM 11/09/2020 2:45 Results for this AM CDT procedure are i n the results section. COMPLETE BLOOD COUNT W/ AM 11/09/2020 2:45 DIFFERENTIAL AM CDT LACTATE DEHYDROGENASE AM 11/09/2020 2:45 Re sults for this AM CDT procedure are i n the results section. PHOSPHORUS LEVEL AM 11/09/2020 2:45 Results for this AM CDT procedure are i n the results section. MAGNESIUM LEVEL AM 11/09/2020 2:45 Results for this AM CDT procedure are i n the results section. COMPREHENSIVE METABOLIC AM 11/09/2020 2:45 PANEL AM CDT HEPATIC FUNCTION PANEL AM 11/09/2020 2:45 AM CDT OSCILLATORY PEP Routine 11/09/2020 2:00 AM CDT OSCILLATORY PEP Routine 11/08/2020 8:00 PM CDT OSCILLATORY PEP Routine 11/08/2020 2:00 PM CDT OSCILLATORY PEP Routine 11/08/2020 8:00 AM CDT XR CHEST 2 VW Routine 11/08/2020 7:42 Results fo r this AM CDT procedure are i n the results section. VRE CULTURE Routine 11/08/2020 5:56 Results for this AM CDT procedure are i n the results section. MANUAL DIFFERENTIAL AM 11/08/2020 3:58 Resu lts for this AM CDT procedure are i n the results section. Results CBC AM 11/08/2020 3:58 Results for this AM CDT procedure are i n the results section. CALCIUM LEVEL TOTAL AM 11/08/2020 3:58 Resu lts for this AM CDT procedure are i n the results section. .GLOMERULAR FILTRATION AM 11/08/2020 3:58 R esults for this RATE AM CDT procedure are i n the results section. SERUM CREATININE AM 11/08/2020 3:58 Results for this AM CDT procedure are i n the results section. ELECTROLYTE PANEL AM 11/08/2020 3:58 Result s for this AM CDT procedure are i n the results section. BLOOD UREA NITROGEN AM 11/08/2020 3:58 Resu lts for this AM CDT procedure are i n the results section. GLUCOSE LEVEL AM 11/08/2020 3:58 Results fo r this AM CDT procedure are i n the results section. FRACTIONATED BILIRUBIN AM 11/08/2020 3:58 R esults for this AM CDT procedure are i n the results section. TOTAL PROTEIN AM 11/08/2020 3:58 Results fo r this AM CDT procedure are i n the results section. ASPARTATE AM 11/08/2020 3:58 Results for this AMINOTRANSFERASE AM CDT procedure a re in the results section. ALANINE AM 11/08/2020 3:58 Results for this AMINOTRANSFERASE AM CDT procedure a re in the results section. ALKALINE PHOSPHATASE AM 11/08/2020 3:58 Res ults for this AM CDT procedure are i n the results section. ALBUMIN LEVEL AM 11/08/2020 3:58 Results fo r this AM CDT procedure are i n the results section. URIC ACID AM 11/08/2020 3:58 Results for this AM CDT procedure are i n the results section. COMPLETE BLOOD COUNT W/ AM 11/08/2020 3:58 DIFFERENTIAL AM CDT LACTATE DEHYDROGENASE AM 11/08/2020 3:58 Re sults for this AM CDT procedure are i n the results section. PHOSPHORUS LEVEL AM 11/08/2020 3:58 Results for this AM CDT procedure are i n the results section. MAGNESIUM LEVEL AM 11/08/2020 3:58 Results for this AM CDT procedure are i n the results section. COMPREHENSIVE METABOLIC AM 11/08/2020 3:58 PANEL AM CDT HEPATIC FUNCTION PANEL AM 11/08/2020 3:58 AM CDT OSCILLATORY PEP Routine 11/08/2020 2:00 AM CDT OSCILLATORY PEP Routine 11/07/2020 8:00 PM CDT LOWER RESPIRATORY Now 11/07/2020 7:20 Result s for this CULTURE W/ GRAM STAIN PM CDT proced ure are in the results section. OSCILLATORY PEP Routine 11/07/2020 2:00 PM CDT OSCILLATORY PEP Routine 11/07/2020 8:00 AM CDT TMP INTERPRETATION Routine 11/07/2020 3:41 Resul ts for this ANTIBODY SCREEN AM CDT procedure ar e in NEGATIVE the results section. CLOT EXPIRATION DATE Routine 11/07/2020 3:41 Res ults for this AM CDT procedure are i n the results section. MANUAL DIFFERENTIAL AM 11/07/2020 3:41 Resu lts for this AM CDT procedure are i n the results section. Results CBC AM 11/07/2020 3:41 Results for this AM CDT procedure are i n the results section. CALCIUM LEVEL TOTAL AM 11/07/2020 3:41 Resu lts for this AM CDT procedure are i n the results section. .GLOMERULAR FILTRATION AM 11/07/2020 3:41 R esults for this RATE AM CDT procedure are i n the results section. SERUM CREATININE AM 11/07/2020 3:41 Results for this AM CDT procedure are i n the results section. ELECTROLYTE PANEL AM 11/07/2020 3:41 Result s for this AM CDT procedure are i n the results section. BLOOD UREA NITROGEN AM 11/07/2020 3:41 Resu lts for this AM CDT procedure are i n the results section. GLUCOSE LEVEL AM 11/07/2020 3:41 Results fo r this AM CDT procedure are i n the results section. FRACTIONATED BILIRUBIN AM 11/07/2020 3:41 R esults for this AM CDT procedure are i n the results section. TOTAL PROTEIN AM 11/07/2020 3:41 Results fo r this AM CDT procedure are i n the results section. ASPARTATE AM 11/07/2020 3:41 Results for this AMINOTRANSFERASE AM CDT procedure a re in the results section. ALANINE AM 11/07/2020 3:41 Results for this AMINOTRANSFERASE AM CDT procedure a re in the results section. ALKALINE PHOSPHATASE AM 11/07/2020 3:41 Res ults for this AM CDT procedure are i n the results section. ALBUMIN LEVEL AM 11/07/2020 3:41 Results fo r this AM CDT procedure are i n the results section. ANTIBODY SCREEN Routine 11/07/2020 3:41 Results for this AM CDT procedure are i n the results section. ABORH Routine 11/07/2020 3:41 Results for this AM CDT procedure are i n the results section. URIC ACID AM 11/07/2020 3:41 Results for this AM CDT procedure are i n the results section. TYPE AND SCREEN Routine 11/07/2020 3:41 AM CDT COMPLETE BLOOD COUNT W/ AM 11/07/2020 3:41 DIFFERENTIAL AM CDT LACTATE DEHYDROGENASE AM 11/07/2020 3:41 Re sults for this AM CDT procedure are i n the results section. PHOSPHORUS LEVEL AM 11/07/2020 3:41 Results for this AM CDT procedure are i n the results section. MAGNESIUM LEVEL AM 11/07/2020 3:41 Results for this AM CDT procedure are i n the results section. COMPREHENSIVE METABOLIC AM 11/07/2020 3:41 PANEL AM CDT HEPATIC FUNCTION PANEL AM 11/07/2020 3:41 AM CDT OSCILLATORY PEP Routine 11/07/2020 2:00 AM CDT OSCILLATORY PEP Routine 11/06/2020 8:00 PM CDT ECHOCARDIOGRAM 2D Routine 11/06/2020 2:42 Result s for this LIMITED - FOLLOW UP PM CDT procedur e are in the results section. OSCILLATORY PEP Routine 11/06/2020 2:00 PM CDT OSCILLATORY PEP Routine 11/06/2020 8:00 AM CDT MANUAL DIFFERENTIAL AM 11/06/2020 3:26 Resu lts for this AM CDT procedure are i n the results section. Results CBC AM 11/06/2020 3:26 Results for this AM CDT procedure are i n the results section. CALCIUM LEVEL TOTAL AM 11/06/2020 3:26 Resu lts for this AM CDT procedure are i n the results section. .GLOMERULAR FILTRATION AM 11/06/2020 3:26 R esults for this RATE AM CDT procedure are i n the results section. SERUM CREATININE AM 11/06/2020 3:26 Results for this AM CDT procedure are i n the results section. ELECTROLYTE PANEL AM 11/06/2020 3:26 Result s for this AM CDT procedure are i n the results section. BLOOD UREA NITROGEN AM 11/06/2020 3:26 Resu lts for this AM CDT procedure are i n the results section. GLUCOSE LEVEL AM 11/06/2020 3:26 Results fo r this AM CDT procedure are i n the results section. FRACTIONATED BILIRUBIN AM 11/06/2020 3:26 R esults for this AM CDT procedure are i n the results section. TOTAL PROTEIN AM 11/06/2020 3:26 Results fo r this AM CDT procedure are i n the results section. ASPARTATE AM 11/06/2020 3:26 Results for this AMINOTRANSFERASE AM CDT procedure a re in the results section. ALANINE AM 11/06/2020 3:26 Results for this AMINOTRANSFERASE AM CDT procedure a re in the results section. ALKALINE PHOSPHATASE AM 11/06/2020 3:26 Res ults for this AM CDT procedure are i n the results section. ALBUMIN LEVEL AM 11/06/2020 3:26 Results fo r this AM CDT procedure are i n the results section. PROTHROMBIN TIME AM 11/06/2020 3:26 Results for this AM CDT procedure are i n the results section. URIC ACID AM 11/06/2020 3:26 Results for this AM CDT procedure are i n the results section. APTT AM 11/06/2020 3:26 Results for this AM CDT procedure are i n the results section. COMPLETE BLOOD COUNT W/ AM 11/06/2020 3:26 DIFFERENTIAL AM CDT LACTATE DEHYDROGENASE AM 11/06/2020 3:26 Re sults for this AM CDT procedure are i n the results section. PHOSPHORUS LEVEL AM 11/06/2020 3:26 Results for this AM CDT procedure are i n the results section. MAGNESIUM LEVEL AM 11/06/2020 3:26 Results for this AM CDT procedure are i n the results section. COMPREHENSIVE METABOLIC AM 11/06/2020 3:26 PANEL AM CDT HEPATIC FUNCTION PANEL AM 11/06/2020 3:26 AM CDT OSCILLATORY PEP Routine 11/05/2020 8:00 PM CDT XR CHEST 1 VW Routine 11/05/2020 3:44 Results fo r this PM CDT procedure are i n the results section. OSCILLATORY PEP Routine 11/05/2020 2:00 PM CDT OSCILLATORY PEP Routine 11/05/2020 8:00 AM CDT MANUAL DIFFERENTIAL AM 11/05/2020 2:14 Resu lts for this AM CDT procedure are i n the results section. Results CBC AM 11/05/2020 2:14 Results for this AM CDT procedure are i n the results section. CALCIUM LEVEL TOTAL AM 11/05/2020 2:14 Resu lts for this AM CDT procedure are i n the results section. .GLOMERULAR FILTRATION AM 11/05/2020 2:14 R esults for this RATE AM CDT procedure are i n the results section. SERUM CREATININE AM 11/05/2020 2:14 Results for this AM CDT procedure are i n the results section. ELECTROLYTE PANEL AM 11/05/2020 2:14 Result s for this AM CDT procedure are i n the results section. BLOOD UREA NITROGEN AM 11/05/2020 2:14 Resu lts for this AM CDT procedure are i n the results section. GLUCOSE LEVEL AM 11/05/2020 2:14 Results fo r this AM CDT procedure are i n the results section. FRACTIONATED BILIRUBIN AM 11/05/2020 2:14 R esults for this AM CDT procedure are i n the results section. TOTAL PROTEIN AM 11/05/2020 2:14 Results fo r this AM CDT procedure are i n the results section. ASPARTATE AM 11/05/2020 2:14 Results for this AMINOTRANSFERASE AM CDT procedure a re in the results section. ALANINE AM 11/05/2020 2:14 Results for this AMINOTRANSFERASE AM CDT procedure a re in the results section. ALKALINE PHOSPHATASE AM 11/05/2020 2:14 Res ults for this AM CDT procedure are i n the results section. ALBUMIN LEVEL AM 11/05/2020 2:14 Results fo r this AM CDT procedure are i n the results section. URIC ACID AM 11/05/2020 2:14 Results for this AM CDT procedure are i n the results section. COMPLETE BLOOD COUNT W/ AM 11/05/2020 2:14 DIFFERENTIAL AM CDT LACTATE DEHYDROGENASE AM 11/05/2020 2:14 Re sults for this AM CDT procedure are i n the results section. PHOSPHORUS LEVEL AM 11/05/2020 2:14 Results for this AM CDT procedure are i n the results section. MAGNESIUM LEVEL AM 11/05/2020 2:14 Results for this AM CDT procedure are i n the results section. COMPREHENSIVE METABOLIC AM 11/05/2020 2:14 PANEL AM CDT HEPATIC FUNCTION PANEL AM 11/05/2020 2:14 AM CDT OSCILLATORY PEP Routine 11/04/2020 9:07 PM CDT OSCILLATORY PEP Routine 11/04/2020 9:07 PM CDT OSCILLATORY PEP Routine 11/04/2020 9:07 PM CDT TMP INTERPRETATION Routine 11/04/2020 3:46 Resul ts for this ANTIBODY SCREEN AM CDT procedure ar e in NEGATIVE the results section. CLOT EXPIRATION DATE Routine 11/04/2020 3:46 Res ults for this AM CDT procedure are i n the results section. MANUAL DIFFERENTIAL AM 11/04/2020 3:46 Resu lts for this AM CDT procedure are i n the results section. Results CBC AM 11/04/2020 3:46 Results for this AM CDT procedure are i n the results section. CALCIUM LEVEL TOTAL AM 11/04/2020 3:46 Resu lts for this AM CDT procedure are i n the results section. .GLOMERULAR FILTRATION AM 11/04/2020 3:46 R esults for this RATE AM CDT procedure are i n the results section. SERUM CREATININE AM 11/04/2020 3:46 Results for this AM CDT procedure are i n the results section. ELECTROLYTE PANEL AM 11/04/2020 3:46 Result s for this AM CDT procedure are i n the results section. BLOOD UREA NITROGEN AM 11/04/2020 3:46 Resu lts for this AM CDT procedure are i n the results section. GLUCOSE LEVEL AM 11/04/2020 3:46 Results fo r this AM CDT procedure are i n the results section. FRACTIONATED BILIRUBIN AM 11/04/2020 3:46 R esults for this AM CDT procedure are i n the results section. TOTAL PROTEIN AM 11/04/2020 3:46 Results fo r this AM CDT procedure are i n the results section. ASPARTATE AM 11/04/2020 3:46 Results for this AMINOTRANSFERASE AM CDT procedure a re in the results section. ALANINE AM 11/04/2020 3:46 Results for this AMINOTRANSFERASE AM CDT procedure a re in the results section. ALKALINE PHOSPHATASE AM 11/04/2020 3:46 Res ults for this AM CDT procedure are i n the results section. ALBUMIN LEVEL AM 11/04/2020 3:46 Results fo r this AM CDT procedure are i n the results section. ANTIBODY SCREEN Routine 11/04/2020 3:46 Results for this AM CDT procedure are i n the results section. ABORH Routine 11/04/2020 3:46 Results for this AM CDT procedure are i n the results section. URIC ACID AM 11/04/2020 3:46 Results for this AM CDT procedure are i n the results section. TYPE AND SCREEN Routine 11/04/2020 3:46 AM CDT COMPLETE BLOOD COUNT W/ AM 11/04/2020 3:46 DIFFERENTIAL AM CDT LACTATE DEHYDROGENASE AM 11/04/2020 3:46 Re sults for this AM CDT procedure are i n the results section. PHOSPHORUS LEVEL AM 11/04/2020 3:46 Results for this AM CDT procedure are i n the results section. MAGNESIUM LEVEL AM 11/04/2020 3:46 Results for this AM CDT procedure are i n the results section. COMPREHENSIVE METABOLIC AM 11/04/2020 3:46 PANEL AM CDT HEPATIC FUNCTION PANEL AM 11/04/2020 3:46 AM CDT POC GLUCOSE SCREEN Routine 11/03/2020 11:28 Resul ts for this PM CDT procedure are i n the results section. COVID-19 (SARS-COV-2) Now 11/03/2020 6:37 Re sults for this PCR-ASYMPTOMATIC MC AM CDT procedur e are in the results section. MANUAL DIFFERENTIAL AM 11/03/2020 3:10 Resu lts for this AM CDT procedure are i n the results section. Results CBC AM 11/03/2020 3:10 Results for this AM CDT procedure are i n the results section. CALCIUM LEVEL TOTAL AM 11/03/2020 3:10 Resu lts for this AM CDT procedure are i n the results section. .GLOMERULAR FILTRATION AM 11/03/2020 3:10 R esults for this RATE AM CDT procedure are i n the results section. SERUM CREATININE AM 11/03/2020 3:10 Results for this AM CDT procedure are i n the results section. ELECTROLYTE PANEL AM 11/03/2020 3:10 Result s for this AM CDT procedure are i n the results section. BLOOD UREA NITROGEN AM 11/03/2020 3:10 Resu lts for this AM CDT procedure are i n the results section. GLUCOSE LEVEL AM 11/03/2020 3:10 Results fo r this AM CDT procedure are i n the results section. FRACTIONATED BILIRUBIN AM 11/03/2020 3:10 R esults for this AM CDT procedure are i n the results section. TOTAL PROTEIN AM 11/03/2020 3:10 Results fo r this AM CDT procedure are i n the results section. ASPARTATE AM 11/03/2020 3:10 Results for this AMINOTRANSFERASE AM CDT procedure a re in the results section. ALANINE AM 11/03/2020 3:10 Results for this AMINOTRANSFERASE AM CDT procedure a re in the results section. ALKALINE PHOSPHATASE AM 11/03/2020 3:10 Res ults for this AM CDT procedure are i n the results section. ALBUMIN LEVEL AM 11/03/2020 3:10 Results fo r this AM CDT procedure are i n the results section. PROTHROMBIN TIME AM 11/03/2020 3:10 Results for this AM CDT procedure are i n the results section. URIC ACID AM 11/03/2020 3:10 Results for this AM CDT procedure are i n the results section. APTT AM 11/03/2020 3:10 Results for this AM CDT procedure are i n the results section. COMPLETE BLOOD COUNT W/ AM 11/03/2020 3:10 DIFFERENTIAL AM CDT LACTATE DEHYDROGENASE AM 11/03/2020 3:10 Re sults for this AM CDT procedure are i n the results section. PHOSPHORUS LEVEL AM 11/03/2020 3:10 Results for this AM CDT procedure are i n the results section. MAGNESIUM LEVEL AM 11/03/2020 3:10 Results for this AM CDT procedure are i n the results section. COMPREHENSIVE METABOLIC AM 11/03/2020 3:10 PANEL AM CDT HEPATIC FUNCTION PANEL AM 11/03/2020 3:10 AM CDT RIGHT HEART CATH Routine 11/02/2020 10:17 AM CDT POC OXIMETRY VENOUS Routine 11/02/2020 10:00 Resu lts for this AM CDT procedure are i n the results section. POC OXIMETRY VENOUS Routine 11/02/2020 9:57 Resu lts for this AM CDT procedure are i n the results section. MANUAL DIFFERENTIAL AM 11/02/2020 4:41 Resu lts for this AM CDT procedure are i n the results section. Results CBC AM 11/02/2020 4:41 Results for this AM CDT procedure are i n the results section. CALCIUM LEVEL TOTAL AM 11/02/2020 4:41 Resu lts for this AM CDT procedure are i n the results section. .GLOMERULAR FILTRATION AM 11/02/2020 4:41 R esults for this RATE AM CDT procedure are i n the results section. SERUM CREATININE AM 11/02/2020 4:41 Results for this AM CDT procedure are i n the results section. ELECTROLYTE PANEL AM 11/02/2020 4:41 Result s for this AM CDT procedure are i n the results section. BLOOD UREA NITROGEN AM 11/02/2020 4:41 Resu lts for this AM CDT procedure are i n the results section. GLUCOSE LEVEL AM 11/02/2020 4:41 Results fo r this AM CDT procedure are i n the results section. FRACTIONATED BILIRUBIN AM 11/02/2020 4:41 R esults for this AM CDT procedure are i n the results section. TOTAL PROTEIN AM 11/02/2020 4:41 Results fo r this AM CDT procedure are i n the results section. ASPARTATE AM 11/02/2020 4:41 Results for this AMINOTRANSFERASE AM CDT procedure a re in the results section. ALANINE AM 11/02/2020 4:41 Results for this AMINOTRANSFERASE AM CDT procedure a re in the results section. ALKALINE PHOSPHATASE AM 11/02/2020 4:41 Res ults for this AM CDT procedure are i n the results section. ALBUMIN LEVEL AM 11/02/2020 4:41 Results fo r this AM CDT procedure are i n the results section. URIC ACID AM 11/02/2020 4:41 Results for this AM CDT procedure are i n the results section. COMPLETE BLOOD COUNT W/ AM 11/02/2020 4:41 DIFFERENTIAL AM CDT LACTATE DEHYDROGENASE AM 11/02/2020 4:41 Re sults for this AM CDT procedure are i n the results section. PHOSPHORUS LEVEL AM 11/02/2020 4:41 Results for this AM CDT procedure are i n the results section. MAGNESIUM LEVEL AM 11/02/2020 4:41 Results for this AM CDT procedure are i n the results section. COMPREHENSIVE METABOLIC AM 11/02/2020 4:41 PANEL AM CDT HEPATIC FUNCTION PANEL AM 11/02/2020 4:41 AM CDT RETICULOCYTE COUNT Now 11/02/2020 4:41 Resul ts for this AUTOMATED AM CDT procedure are i n the results section. IMMATURE PLATELET Now 11/02/2020 4:41 Result s for this FRACTION AM CDT procedure are i n the results section. PROTHROMBIN TIME Now 11/02/2020 4:41 Results for this AM CDT procedure are i n the results section. APTT Now 11/02/2020 4:41 Results for this AM CDT procedure are i n the results section. TRANSFUSE RED BLOOD Routine 11/01/2020 11:00 CELLS AM CDT PRBC PRODUCT READY FOR Routine 11/01/2020 6:07 R esults for this ACCESS CONSULTANT AM CDT procedure are i n the results section. PREPARE RBC Routine 11/01/2020 6:07 Results for this AM CDT procedure are i n the results section. VRE CULTURE Routine 11/01/2020 5:36 Results for this AM CDT procedure are i n the results section. TMP INTERPRETATION Routine 11/01/2020 4:56 Resul ts for this ANTIBODY SCREEN AM CDT procedure ar e in NEGATIVE the results section. CLOT EXPIRATION DATE Routine 11/01/2020 4:56 Res ults for this AM CDT procedure are i n the results section. MANUAL DIFFERENTIAL AM 11/01/2020 4:56 Resu lts for this AM CDT procedure are i n the results section. Results CBC AM 11/01/2020 4:56 Results for this AM CDT procedure are i n the results section. CALCIUM LEVEL TOTAL AM 11/01/2020 4:56 Resu lts for this AM CDT procedure are i n the results section. .GLOMERULAR FILTRATION AM 11/01/2020 4:56 R esults for this RATE AM CDT procedure are i n the results section. SERUM CREATININE AM 11/01/2020 4:56 Results for this AM CDT procedure are i n the results section. ELECTROLYTE PANEL AM 11/01/2020 4:56 Result s for this AM CDT procedure are i n the results section. BLOOD UREA NITROGEN AM 11/01/2020 4:56 Resu lts for this AM CDT procedure are i n the results section. GLUCOSE LEVEL AM 11/01/2020 4:56 Results fo r this AM CDT procedure are i n the results section. FRACTIONATED BILIRUBIN AM 11/01/2020 4:56 R esults for this AM CDT procedure are i n the results section. TOTAL PROTEIN AM 11/01/2020 4:56 Results fo r this AM CDT procedure are i n the results section. ASPARTATE AM 11/01/2020 4:56 Results for this AMINOTRANSFERASE AM CDT procedure a re in the results section. ALANINE AM 11/01/2020 4:56 Results for this AMINOTRANSFERASE AM CDT procedure a re in the results section. ALKALINE PHOSPHATASE AM 11/01/2020 4:56 Res ults for this AM CDT procedure are i n the results section. ALBUMIN LEVEL AM 11/01/2020 4:56 Results fo r this AM CDT procedure are i n the results section. ANTIBODY SCREEN Routine 11/01/2020 4:56 Results for this AM CDT procedure are i n the results section. ABORH Routine 11/01/2020 4:56 Results for this AM CDT procedure are i n the results section. URIC ACID AM 11/01/2020 4:56 Results for this AM CDT procedure are i n the results section. TYPE AND SCREEN Routine 11/01/2020 4:56 AM CDT COMPLETE BLOOD COUNT W/ AM 11/01/2020 4:56 DIFFERENTIAL AM CDT LACTATE DEHYDROGENASE AM 11/01/2020 4:56 Re sults for this AM CDT procedure are i n the results section. PHOSPHORUS LEVEL AM 11/01/2020 4:56 Results for this AM CDT procedure are i n the results section. MAGNESIUM LEVEL AM 11/01/2020 4:56 Results for this AM CDT procedure are i n the results section. COMPREHENSIVE METABOLIC AM 11/01/2020 4:56 PANEL AM CDT HEPATIC FUNCTION PANEL AM 11/01/2020 4:56 AM CDT MANUAL DIFFERENTIAL AM 10/31/2020 4:13 Resu lts for this AM CDT procedure are i n the results section. Results CBC AM 10/31/2020 4:13 Results for this AM CDT procedure are i n the results section. CALCIUM LEVEL TOTAL AM 10/31/2020 4:13 Resu lts for this AM CDT procedure are i n the results section. .GLOMERULAR FILTRATION AM 10/31/2020 4:13 R esults for this RATE AM CDT procedure are i n the results section. SERUM CREATININE AM 10/31/2020 4:13 Results for this AM CDT procedure are i n the results section. ELECTROLYTE PANEL AM 10/31/2020 4:13 Result s for this AM CDT procedure are i n the results section. BLOOD UREA NITROGEN AM 10/31/2020 4:13 Resu lts for this AM CDT procedure are i n the results section. GLUCOSE LEVEL AM 10/31/2020 4:13 Results fo r this AM CDT procedure are i n the results section. FRACTIONATED BILIRUBIN AM 10/31/2020 4:13 R esults for this AM CDT procedure are i n the results section. TOTAL PROTEIN AM 10/31/2020 4:13 Results fo r this AM CDT procedure are i n the results section. ASPARTATE AM 10/31/2020 4:13 Results for this AMINOTRANSFERASE AM CDT procedure a re in the results section. ALANINE AM 10/31/2020 4:13 Results for this AMINOTRANSFERASE AM CDT procedure a re in the results section. ALKALINE PHOSPHATASE AM 10/31/2020 4:13 Res ults for this AM CDT procedure are i n the results section. ALBUMIN LEVEL AM 10/31/2020 4:13 Results fo r this AM CDT procedure are i n the results section. URIC ACID AM 10/31/2020 4:13 Results for this AM CDT procedure are i n the results section. COMPLETE BLOOD COUNT W/ AM 10/31/2020 4:13 DIFFERENTIAL AM CDT LACTATE DEHYDROGENASE AM 10/31/2020 4:13 Re sults for this AM CDT procedure are i n the results section. PHOSPHORUS LEVEL AM 10/31/2020 4:13 Results for this AM CDT procedure are i n the results section. MAGNESIUM LEVEL AM 10/31/2020 4:13 Results for this AM CDT procedure are i n the results section. COMPREHENSIVE METABOLIC AM 10/31/2020 4:13 PANEL AM CDT HEPATIC FUNCTION PANEL AM 10/31/2020 4:13 AM CDT NT PRO BNP Routine 10/31/2020 4:13 Results for this AM CDT procedure are i n the results section. TRANSFUSE RED BLOOD Routine 10/30/2020 3:20 CELLS PM CDT URINALYSIS WITH Routine 10/30/2020 1:46 Results for this MICROSCOPIC IF PM CDT procedure are in INDICATED the results section. ALBUMIN LEVEL URINE Routine 10/30/2020 1:46 Resu lts for this PM CDT procedure are i n the results section. PROTEIN / CREATININE Now 10/30/2020 1:46 Res ults for this RATIO URINE PM CDT procedure are i n the results section. MICROALBUMIN/CREATININE Routine 10/30/2020 1:46 RATIO, URINE PM CDT URINALYSIS MICROSCOPIC Now 10/30/2020 1:46 R esults for this PM CDT procedure are i n the results section. LOWER RESPIRATORY Now 10/30/2020 1:46 Result s for this CULTURE W/ GRAM STAIN PM CDT proced ure are in the results section. POC GLUCOSE SCREEN Routine 10/30/2020 9:02 Resul ts for this AM CDT procedure are i n the results section. PRBC PRODUCT READY FOR Routine 10/30/2020 4:21 R esults for this ACCESS CONSULTANT AM CDT procedure are i n the results section. PREPARE RBC Routine 10/30/2020 4:21 Results for this AM CDT procedure are i n the results section. MANUAL DIFFERENTIAL AM 10/30/2020 3:45 Resu lts for this AM CDT procedure are i n the results section. Results CBC AM 10/30/2020 3:45 Results for this AM CDT procedure are i n the results section. CALCIUM LEVEL TOTAL AM 10/30/2020 3:45 Resu lts for this AM CDT procedure are i n the results section. .GLOMERULAR FILTRATION AM 10/30/2020 3:45 R esults for this RATE AM CDT procedure are i n the results section. SERUM CREATININE AM 10/30/2020 3:45 Results for this AM CDT procedure are i n the results section. ELECTROLYTE PANEL AM 10/30/2020 3:45 Result s for this AM CDT procedure are i n the results section. BLOOD UREA NITROGEN AM 10/30/2020 3:45 Resu lts for this AM CDT procedure are i n the results section. GLUCOSE LEVEL AM 10/30/2020 3:45 Results fo r this AM CDT procedure are i n the results section. FRACTIONATED BILIRUBIN AM 10/30/2020 3:45 R esults for this AM CDT procedure are i n the results section. TOTAL PROTEIN AM 10/30/2020 3:45 Results fo r this AM CDT procedure are i n the results section. ASPARTATE AM 10/30/2020 3:45 Results for this AMINOTRANSFERASE AM CDT procedure a re in the results section. ALANINE AM 10/30/2020 3:45 Results for this AMINOTRANSFERASE AM CDT procedure a re in the results section. ALKALINE PHOSPHATASE AM 10/30/2020 3:45 Res ults for this AM CDT procedure are i n the results section. ALBUMIN LEVEL AM 10/30/2020 3:45 Results fo r this AM CDT procedure are i n the results section. PROTHROMBIN TIME AM 10/30/2020 3:45 Results for this AM CDT procedure are i n the results section. URIC ACID AM 10/30/2020 3:45 Results for this AM CDT procedure are i n the results section. APTT AM 10/30/2020 3:45 Results for this AM CDT procedure are i n the results section. COMPLETE BLOOD COUNT W/ AM 10/30/2020 3:45 DIFFERENTIAL AM CDT LACTATE DEHYDROGENASE AM 10/30/2020 3:45 Re sults for this AM CDT procedure are i n the results section. PHOSPHORUS LEVEL AM 10/30/2020 3:45 Results for this AM CDT procedure are i n the results section. MAGNESIUM LEVEL AM 10/30/2020 3:45 Results for this AM CDT procedure are i n the results section. COMPREHENSIVE METABOLIC AM 10/30/2020 3:45 PANEL AM CDT HEPATIC FUNCTION PANEL AM 10/30/2020 3:45 AM CDT POC GLUCOSE SCREEN Routine 10/30/2020 12:05 Resul ts for this AM CDT procedure are i n the results section. POC GLUCOSE SCREEN Routine 10/29/2020 5:56 Resul ts for this PM CDT procedure are i n the results section. ECHOCARDIOGRAM 2D Routine 10/29/2020 11:59 Result s for this COMPLETE AM CDT procedure are i n the results section. POC GLUCOSE SCREEN Routine 10/29/2020 11:54 Resul ts for this AM CDT procedure are i n the results section. POC GLUCOSE SCREEN Routine 10/29/2020 8:00 Resul ts for this AM CDT procedure are i n the results section. TMP CROSSMATCH Routine 10/29/2020 4:26 Results f or this INTERPRETATION AM CDT procedure are in the results section. TMP INTERPRETATION Routine 10/29/2020 4:26 Resul ts for this ANTIBODY SCREEN AM CDT procedure ar e in NEGATIVE the results section. CLOT EXPIRATION DATE Routine 10/29/2020 4:26 Res ults for this AM CDT procedure are i n the results section. MANUAL DIFFERENTIAL AM 10/29/2020 4:26 Resu lts for this AM CDT procedure are i n the results section. Results CBC AM 10/29/2020 4:26 Results for this AM CDT procedure are i n the results section. CALCIUM LEVEL TOTAL AM 10/29/2020 4:26 Resu lts for this AM CDT procedure are i n the results section. .GLOMERULAR FILTRATION AM 10/29/2020 4:26 R esults for this RATE AM CDT procedure are i n the results section. SERUM CREATININE AM 10/29/2020 4:26 Results for this AM CDT procedure are i n the results section. ELECTROLYTE PANEL AM 10/29/2020 4:26 Result s for this AM CDT procedure are i n the results section. BLOOD UREA NITROGEN AM 10/29/2020 4:26 Resu lts for this AM CDT procedure are i n the results section. GLUCOSE LEVEL AM 10/29/2020 4:26 Results fo r this AM CDT procedure are i n the results section. FRACTIONATED BILIRUBIN AM 10/29/2020 4:26 R esults for this AM CDT procedure are i n the results section. TOTAL PROTEIN AM 10/29/2020 4:26 Results fo r this AM CDT procedure are i n the results section. ASPARTATE AM 10/29/2020 4:26 Results for this AMINOTRANSFERASE AM CDT procedure a re in the results section. ALANINE AM 10/29/2020 4:26 Results for this AMINOTRANSFERASE AM CDT procedure a re in the results section. ALKALINE PHOSPHATASE AM 10/29/2020 4:26 Res ults for this AM CDT procedure are i n the results section. ALBUMIN LEVEL AM 10/29/2020 4:26 Results fo r this AM CDT procedure are i n the results section. ANTIBODY SCREEN Routine 10/29/2020 4:26 Results for this AM CDT procedure are i n the results section. ABORH Routine 10/29/2020 4:26 Results for this AM CDT procedure are i n the results section. URIC ACID AM 10/29/2020 4:26 Results for this AM CDT procedure are i n the results section. TYPE AND SCREEN Routine 10/29/2020 4:26 AM CDT COMPLETE BLOOD COUNT W/ AM 10/29/2020 4:26 DIFFERENTIAL AM CDT LACTATE DEHYDROGENASE AM 10/29/2020 4:26 Re sults for this AM CDT procedure are i n the results section. PHOSPHORUS LEVEL AM 10/29/2020 4:26 Results for this AM CDT procedure are i n the results section. MAGNESIUM LEVEL AM 10/29/2020 4:26 Results for this AM CDT procedure are i n the results section. COMPREHENSIVE METABOLIC AM 10/29/2020 4:26 PANEL AM CDT HEPATIC FUNCTION PANEL AM 10/29/2020 4:26 AM CDT OSCILLATORY PEP Routine 10/29/2020 2:00 AM CDT OSCILLATORY PEP Routine 10/28/2020 8:00 PM CDT POC GLUCOSE SCREEN Routine 10/28/2020 5:29 Resul ts for this PM CDT procedure are i n the results section. OSCILLATORY PEP Routine 10/28/2020 2:00 PM CDT POC GLUCOSE SCREEN Routine 10/28/2020 12:17 Resul ts for this PM CDT procedure are i n the results section. ALBUMIN LEVEL URINE Routine 10/28/2020 12:14 Resu lts for this PM CDT procedure are i n the results section. MICROALBUMIN/CREATININE Routine 10/28/2020 12:14 RATIO, URINE PM CDT PROTEIN / CREATININE Now 10/28/2020 12:14 Res ults for this RATIO URINE PM CDT procedure are i n the results section. NT PRO BNP STAT 10/28/2020 10:56 Results for this AM CDT procedure are i n the results section. XR CHEST 1 VW PORTABLE Routine 10/28/2020 10:46 R esults for this AM CDT procedure are i n the results section. POC GLUCOSE SCREEN Routine 10/28/2020 9:25 Resul ts for this AM CDT procedure are i n the results section. POC GLUCOSE SCREEN Routine 10/28/2020 8:58 Resul ts for this AM CDT procedure are i n the results section. MANUAL DIFFERENTIAL AM 10/28/2020 4:39 Resu lts for this AM CDT procedure are i n the results section. Results CBC AM 10/28/2020 4:39 Results for this AM CDT procedure are i n the results section. CALCIUM LEVEL TOTAL AM 10/28/2020 4:39 Resu lts for this AM CDT procedure are i n the results section. .GLOMERULAR FILTRATION AM 10/28/2020 4:39 R esults for this RATE AM CDT procedure are i n the results section. SERUM CREATININE AM 10/28/2020 4:39 Results for this AM CDT procedure are i n the results section. ELECTROLYTE PANEL AM 10/28/2020 4:39 Result s for this AM CDT procedure are i n the results section. BLOOD UREA NITROGEN AM 10/28/2020 4:39 Resu lts for this AM CDT procedure are i n the results section. GLUCOSE LEVEL AM 10/28/2020 4:39 Results fo r this AM CDT procedure are i n the results section. FRACTIONATED BILIRUBIN AM 10/28/2020 4:39 R esults for this AM CDT procedure are i n the results section. TOTAL PROTEIN AM 10/28/2020 4:39 Results fo r this AM CDT procedure are i n the results section. ASPARTATE AM 10/28/2020 4:39 Results for this AMINOTRANSFERASE AM CDT procedure a re in the results section. ALANINE AM 10/28/2020 4:39 Results for this AMINOTRANSFERASE AM CDT procedure a re in the results section. ALKALINE PHOSPHATASE AM 10/28/2020 4:39 Res ults for this AM CDT procedure are i n the results section. ALBUMIN LEVEL AM 10/28/2020 4:39 Results fo r this AM CDT procedure are i n the results section. URIC ACID AM 10/28/2020 4:39 Results for this AM CDT procedure are i n the results section. COMPLETE BLOOD COUNT W/ AM 10/28/2020 4:39 DIFFERENTIAL AM CDT LACTATE DEHYDROGENASE AM 10/28/2020 4:39 Re sults for this AM CDT procedure are i n the results section. PHOSPHORUS LEVEL AM 10/28/2020 4:39 Results for this AM CDT procedure are i n the results section. MAGNESIUM LEVEL AM 10/28/2020 4:39 Results for this AM CDT procedure are i n the results section. COMPREHENSIVE METABOLIC AM 10/28/2020 4:39 PANEL AM CDT HEPATIC FUNCTION PANEL AM 10/28/2020 4:39 AM CDT OSCILLATORY PEP Routine 10/28/2020 2:00 AM CDT POC GLUCOSE SCREEN Routine 10/28/2020 12:15 Resul ts for this AM CDT procedure are i n the results section. EKG, 12-LEAD (PORTABLE) STAT 10/28/2020 OSCILLATORY PEP Routine 10/27/2020 8:00 PM CDT POC GLUCOSE SCREEN Routine 10/27/2020 6:00 Resul ts for this PM CDT procedure are i n the results section. OSCILLATORY PEP Routine 10/27/2020 2:00 PM CDT COVID-19 (SARS-COV-2) Now 10/27/2020 12:51 Re sults for this PCR-ASYMPTOMATIC MC PM CDT procedur e are in the results section. URINE CULTURE Now 10/27/2020 12:22 Results fo r this PM CDT procedure are i n the results section. POC GLUCOSE SCREEN Routine 10/27/2020 11:36 Resul ts for this AM CDT procedure are i n the results section. TOBRAMYCIN LEVEL RANDOM Timed Study 10/27/2020 9:55 Results for this AM CDT procedure are i n the results section. POC GLUCOSE SCREEN Routine 10/27/2020 5:18 Resul ts for this AM CDT procedure are i n the results section. MANUAL DIFFERENTIAL AM 10/27/2020 3:32 Resu lts for this AM CDT procedure are i n the results section. Results CBC AM 10/27/2020 3:32 Results for this AM CDT procedure are i n the results section. CALCIUM LEVEL TOTAL AM 10/27/2020 3:32 Resu lts for this AM CDT procedure are i n the results section. .GLOMERULAR FILTRATION AM 10/27/2020 3:32 R esults for this RATE AM CDT procedure are i n the results section. SERUM CREATININE AM 10/27/2020 3:32 Results for this AM CDT procedure are i n the results section. ELECTROLYTE PANEL AM 10/27/2020 3:32 Result s for this AM CDT procedure are i n the results section. BLOOD UREA NITROGEN AM 10/27/2020 3:32 Resu lts for this AM CDT procedure are i n the results section. GLUCOSE LEVEL AM 10/27/2020 3:32 Results fo r this AM CDT procedure are i n the results section. FRACTIONATED BILIRUBIN AM 10/27/2020 3:32 R esults for this AM CDT procedure are i n the results section. TOTAL PROTEIN AM 10/27/2020 3:32 Results fo r this AM CDT procedure are i n the results section. ASPARTATE AM 10/27/2020 3:32 Results for this AMINOTRANSFERASE AM CDT procedure a re in the results section. ALANINE AM 10/27/2020 3:32 Results for this AMINOTRANSFERASE AM CDT procedure a re in the results section. ALKALINE PHOSPHATASE AM 10/27/2020 3:32 Res ults for this AM CDT procedure are i n the results section. ALBUMIN LEVEL AM 10/27/2020 3:32 Results fo r this AM CDT procedure are i n the results section. COMPLETE BLOOD COUNT W/ AM 10/27/2020 3:32 DIFFERENTIAL AM CDT FERRITIN LVL AM 10/27/2020 3:32 Results for this AM CDT procedure are i n the results section. LACTATE DEHYDROGENASE AM 10/27/2020 3:32 Re sults for this AM CDT procedure are i n the results section. PHOSPHORUS LEVEL AM 10/27/2020 3:32 Results for this AM CDT procedure are i n the results section. MAGNESIUM LEVEL AM 10/27/2020 3:32 Results for this AM CDT procedure are i n the results section. COMPREHENSIVE METABOLIC AM 10/27/2020 3:32 PANEL AM CDT HEPATIC FUNCTION PANEL AM 10/27/2020 3:32 AM CDT APTT AM 10/27/2020 3:32 Results for this AM CDT procedure are i n the results section. PROTHROMBIN TIME AM 10/27/2020 3:32 Results for this AM CDT procedure are i n the results section. HBV DNA QUANT Routine 10/27/2020 3:32 Results fo r this AM CDT procedure are i n the results section. POC GLUCOSE SCREEN Routine 10/26/2020 11:53 Resul ts for this PM CDT procedure are i n the results section. OSCILLATORY PEP Routine 10/26/2020 8:00 PM CDT URINALYSIS WITH Routine 10/26/2020 5:41 Results for this MICROSCOPIC IF PM CDT procedure are in INDICATED the results section. URINALYSIS MICROSCOPIC Now 10/26/2020 5:41 R esults for this PM CDT procedure are i n the results section. POC GLUCOSE SCREEN Routine 10/26/2020 5:23 Resul ts for this PM CDT procedure are i n the results section. OSCILLATORY PEP Routine 10/26/2020 2:00 PM CDT POC GLUCOSE SCREEN Routine 10/26/2020 11:14 Resul ts for this AM CDT procedure are i n the results section. OSCILLATORY PEP Routine 10/26/2020 8:00 AM CDT POC GLUCOSE SCREEN Routine 10/26/2020 6:02 Resul ts for this AM CDT procedure are i n the results section. CLOT EXPIRATION DATE Routine 10/26/2020 4:43 Res ults for this AM CDT procedure are i n the results section. TMP INTERPRETATION Routine 10/26/2020 4:43 Resul ts for this ANTIBODY SCREEN AM CDT procedure ar e in NEGATIVE the results section. MANUAL DIFFERENTIAL AM 10/26/2020 4:43 Resu lts for this AM CDT procedure are i n the results section. Results CBC AM 10/26/2020 4:43 Results for this AM CDT procedure are i n the results section. CALCIUM LEVEL TOTAL AM 10/26/2020 4:43 Resu lts for this AM CDT procedure are i n the results section. .GLOMERULAR FILTRATION AM 10/26/2020 4:43 R esults for this RATE AM CDT procedure are i n the results section. SERUM CREATININE AM 10/26/2020 4:43 Results for this AM CDT procedure are i n the results section. ELECTROLYTE PANEL AM 10/26/2020 4:43 Result s for this AM CDT procedure are i n the results section. BLOOD UREA NITROGEN AM 10/26/2020 4:43 Resu lts for this AM CDT procedure are i n the results section. GLUCOSE LEVEL AM 10/26/2020 4:43 Results fo r this AM CDT procedure are i n the results section. FRACTIONATED BILIRUBIN AM 10/26/2020 4:43 R esults for this AM CDT procedure are i n the results section. TOTAL PROTEIN AM 10/26/2020 4:43 Results fo r this AM CDT procedure are i n the results section. ASPARTATE AM 10/26/2020 4:43 Results for this AMINOTRANSFERASE AM CDT procedure a re in the results section. ALANINE AM 10/26/2020 4:43 Results for this AMINOTRANSFERASE AM CDT procedure a re in the results section. ALKALINE PHOSPHATASE AM 10/26/2020 4:43 Res ults for this AM CDT procedure are i n the results section. ALBUMIN LEVEL AM 10/26/2020 4:43 Results fo r this AM CDT procedure are i n the results section. ANTIBODY SCREEN Routine 10/26/2020 4:43 Results for this AM CDT procedure are i n the results section. ABORH Routine 10/26/2020 4:43 Results for this AM CDT procedure are i n the results section. TYPE AND SCREEN Routine 10/26/2020 4:43 AM CDT COMPLETE BLOOD COUNT W/ AM 10/26/2020 4:43 DIFFERENTIAL AM CDT FERRITIN LVL AM 10/26/2020 4:43 Results for this AM CDT procedure are i n the results section. LACTATE DEHYDROGENASE AM 10/26/2020 4:43 Re sults for this AM CDT procedure are i n the results section. PHOSPHORUS LEVEL AM 10/26/2020 4:43 Results for this AM CDT procedure are i n the results section. MAGNESIUM LEVEL AM 10/26/2020 4:43 Results for this AM CDT procedure are i n the results section. COMPREHENSIVE METABOLIC AM 10/26/2020 4:43 PANEL AM CDT HEPATIC FUNCTION PANEL AM 10/26/2020 4:43 AM CDT APTT AM 10/26/2020 4:43 Results for this AM CDT procedure are i n the results section. PROTHROMBIN TIME AM 10/26/2020 4:43 Results for this AM CDT procedure are i n the results section. OSCILLATORY PEP Routine 10/26/2020 2:00 AM CDT POC GLUCOSE SCREEN Routine 10/26/2020 1:29 Resul ts for this AM CDT procedure are i n the results section. OSCILLATORY PEP Routine 10/25/2020 8:00 PM CDT POC GLUCOSE SCREEN Routine 10/25/2020 6:13 Resul ts for this PM CDT procedure are i n the results section. VRE CULTURE Routine 10/25/2020 4:51 Results for this PM CDT procedure are i n the results section. POC GLUCOSE SCREEN Routine 10/25/2020 12:26 Resul ts for this PM CDT procedure are i n the results section. TRANSFUSE RED BLOOD Routine 10/25/2020 12:05 CELLS PM CDT OSCILLATORY PEP Routine 10/25/2020 8:00 AM CDT PRBC PRODUCT READY FOR Routine 10/25/2020 7:49 R esults for this ACCESS CONSULTANT AM CDT procedure are i n the results section. PREPARE RBC Routine 10/25/2020 7:49 Results for this AM CDT procedure are i n the results section. POC GLUCOSE SCREEN Routine 10/25/2020 6:03 Resul ts for this AM CDT procedure are i n the results section. MANUAL DIFFERENTIAL AM 10/25/2020 5:07 Resu lts for this AM CDT procedure are i n the results section. Results CBC AM 10/25/2020 5:07 Results for this AM CDT procedure are i n the results section. CALCIUM LEVEL TOTAL AM 10/25/2020 5:07 Resu lts for this AM CDT procedure are i n the results section. .GLOMERULAR FILTRATION AM 10/25/2020 5:07 R esults for this RATE AM CDT procedure are i n the results section. SERUM CREATININE AM 10/25/2020 5:07 Results for this AM CDT procedure are i n the results section. ELECTROLYTE PANEL AM 10/25/2020 5:07 Result s for this AM CDT procedure are i n the results section. BLOOD UREA NITROGEN AM 10/25/2020 5:07 Resu lts for this AM CDT procedure are i n the results section. GLUCOSE LEVEL AM 10/25/2020 5:07 Results fo r this AM CDT procedure are i n the results section. FRACTIONATED BILIRUBIN AM 10/25/2020 5:07 R esults for this AM CDT procedure are i n the results section. TOTAL PROTEIN AM 10/25/2020 5:07 Results fo r this AM CDT procedure are i n the results section. ASPARTATE AM 10/25/2020 5:07 Results for this AMINOTRANSFERASE AM CDT procedure a re in the results section. ALANINE AM 10/25/2020 5:07 Results for this AMINOTRANSFERASE AM CDT procedure a re in the results section. ALKALINE PHOSPHATASE AM 10/25/2020 5:07 Res ults for this AM CDT procedure are i n the results section. ALBUMIN LEVEL AM 10/25/2020 5:07 Results fo r this AM CDT procedure are i n the results section. COMPLETE BLOOD COUNT W/ AM 10/25/2020 5:07 DIFFERENTIAL AM CDT FERRITIN LVL AM 10/25/2020 5:07 Results for this AM CDT procedure are i n the results section. LACTATE DEHYDROGENASE AM 10/25/2020 5:07 Re sults for this AM CDT procedure are i n the results section. PHOSPHORUS LEVEL AM 10/25/2020 5:07 Results for this AM CDT procedure are i n the results section. MAGNESIUM LEVEL AM 10/25/2020 5:07 Results for this AM CDT procedure are i n the results section. COMPREHENSIVE METABOLIC AM 10/25/2020 5:07 PANEL AM CDT HEPATIC FUNCTION PANEL AM 10/25/2020 5:07 AM CDT APTT AM 10/25/2020 5:07 Results for this AM CDT procedure are i n the results section. PROTHROMBIN TIME AM 10/25/2020 5:07 Results for this AM CDT procedure are i n the results section. POC GLUCOSE SCREEN Routine 10/25/2020 12:20 Resul ts for this AM CDT procedure are i n the results section. EKG, 12-LEAD (PORTABLE) STAT 10/25/2020 EKG, 12-LEAD (PORTABLE) STAT 10/25/2020 EKG, 12-LEAD (PORTABLE) Routine 10/25/2020 OSCILLATORY PEP Routine 10/24/2020 8:00 PM CDT POC GLUCOSE SCREEN Routine 10/24/2020 5:56 Resul ts for this PM CDT procedure are i n the results section. POC GLUCOSE SCREEN Routine 10/24/2020 12:13 Resul ts for this PM CDT procedure are i n the results section. OSCILLATORY PEP Routine 10/24/2020 8:00 AM CDT POC GLUCOSE SCREEN Routine 10/24/2020 5:35 Resul ts for this AM CDT procedure are i n the results section. MANUAL DIFFERENTIAL AM 10/24/2020 4:49 Resu lts for this AM CDT procedure are i n the results section. Results CBC AM 10/24/2020 4:49 Results for this AM CDT procedure are i n the results section. CALCIUM LEVEL TOTAL AM 10/24/2020 4:49 Resu lts for this AM CDT procedure are i n the results section. .GLOMERULAR FILTRATION AM 10/24/2020 4:49 R esults for this RATE AM CDT procedure are i n the results section. SERUM CREATININE AM 10/24/2020 4:49 Results for this AM CDT procedure are i n the results section. ELECTROLYTE PANEL AM 10/24/2020 4:49 Result s for this AM CDT procedure are i n the results section. BLOOD UREA NITROGEN AM 10/24/2020 4:49 Resu lts for this AM CDT procedure are i n the results section. GLUCOSE LEVEL AM 10/24/2020 4:49 Results fo r this AM CDT procedure are i n the results section. FRACTIONATED BILIRUBIN AM 10/24/2020 4:49 R esults for this AM CDT procedure are i n the results section. TOTAL PROTEIN AM 10/24/2020 4:49 Results fo r this AM CDT procedure are i n the results section. ASPARTATE AM 10/24/2020 4:49 Results for this AMINOTRANSFERASE AM CDT procedure a re in the results section. ALANINE AM 10/24/2020 4:49 Results for this AMINOTRANSFERASE AM CDT procedure a re in the results section. ALKALINE PHOSPHATASE AM 10/24/2020 4:49 Res ults for this AM CDT procedure are i n the results section. ALBUMIN LEVEL AM 10/24/2020 4:49 Results fo r this AM CDT procedure are i n the results section. COMPLETE BLOOD COUNT W/ AM 10/24/2020 4:49 DIFFERENTIAL AM CDT FERRITIN LVL AM 10/24/2020 4:49 Results for this AM CDT procedure are i n the results section. LACTATE DEHYDROGENASE AM 10/24/2020 4:49 Re sults for this AM CDT procedure are i n the results section. PHOSPHORUS LEVEL AM 10/24/2020 4:49 Results for this AM CDT procedure are i n the results section. MAGNESIUM LEVEL AM 10/24/2020 4:49 Results for this AM CDT procedure are i n the results section. COMPREHENSIVE METABOLIC AM 10/24/2020 4:49 PANEL AM CDT HEPATIC FUNCTION PANEL AM 10/24/2020 4:49 AM CDT APTT AM 10/24/2020 4:49 Results for this AM CDT procedure are i n the results section. PROTHROMBIN TIME AM 10/24/2020 4:49 Results for this AM CDT procedure are i n the results section. POC GLUCOSE SCREEN Routine 10/24/2020 12:35 Resul ts for this AM CDT procedure are i n the results section. OSCILLATORY PEP Routine 10/23/2020 8:00 PM CDT POC GLUCOSE SCREEN Routine 10/23/2020 6:05 Resul ts for this PM CDT procedure are i n the results section. OSCILLATORY PEP Routine 10/23/2020 2:00 PM CDT US LEG VENOUS DOPPLER STAT 10/23/2020 1:44 Re sults for this BILATERAL PM CDT procedure are i n the results section. XR ABDOMEN 1 VW STAT 10/23/2020 12:11 Results for this PORTABLE PM CDT procedure are i n the results section. POC GLUCOSE SCREEN Routine 10/23/2020 12:03 Resul ts for this PM CDT procedure are i n the results section. OSCILLATORY PEP Routine 10/23/2020 8:00 AM CDT POC GLUCOSE SCREEN Routine 10/23/2020 6:37 Resul ts for this AM CDT procedure are i n the results section. TMP CROSSMATCH Routine 10/23/2020 3:59 Results f or this INTERPRETATION AM CDT procedure are in the results section. TMP INTERPRETATION Routine 10/23/2020 3:59 Resul ts for this ANTIBODY SCREEN AM CDT procedure ar e in NEGATIVE the results section. CLOT EXPIRATION DATE Routine 10/23/2020 3:59 Res ults for this AM CDT procedure are i n the results section. MANUAL DIFFERENTIAL AM 10/23/2020 3:59 Resu lts for this AM CDT procedure are i n the results section. Results CBC AM 10/23/2020 3:59 Results for this AM CDT procedure are i n the results section. CALCIUM LEVEL TOTAL AM 10/23/2020 3:59 Resu lts for this AM CDT procedure are i n the results section. .GLOMERULAR FILTRATION AM 10/23/2020 3:59 R esults for this RATE AM CDT procedure are i n the results section. SERUM CREATININE AM 10/23/2020 3:59 Results for this AM CDT procedure are i n the results section. ELECTROLYTE PANEL AM 10/23/2020 3:59 Result s for this AM CDT procedure are i n the results section. BLOOD UREA NITROGEN AM 10/23/2020 3:59 Resu lts for this AM CDT procedure are i n the results section. GLUCOSE LEVEL AM 10/23/2020 3:59 Results fo r this AM CDT procedure are i n the results section. FRACTIONATED BILIRUBIN AM 10/23/2020 3:59 R esults for this AM CDT procedure are i n the results section. TOTAL PROTEIN AM 10/23/2020 3:59 Results fo r this AM CDT procedure are i n the results section. ASPARTATE AM 10/23/2020 3:59 Results for this AMINOTRANSFERASE AM CDT procedure a re in the results section. ALANINE AM 10/23/2020 3:59 Results for this AMINOTRANSFERASE AM CDT procedure a re in the results section. ALKALINE PHOSPHATASE AM 10/23/2020 3:59 Res ults for this AM CDT procedure are i n the results section. ALBUMIN LEVEL AM 10/23/2020 3:59 Results fo r this AM CDT procedure are i n the results section. ANTIBODY SCREEN Routine 10/23/2020 3:59 Results for this AM CDT procedure are i n the results section. ABORH Routine 10/23/2020 3:59 Results for this AM CDT procedure are i n the results section. TYPE AND SCREEN Routine 10/23/2020 3:59 AM CDT COMPLETE BLOOD COUNT W/ AM 10/23/2020 3:59 DIFFERENTIAL AM CDT FERRITIN LVL AM 10/23/2020 3:59 Results for this AM CDT procedure are i n the results section. LACTATE DEHYDROGENASE AM 10/23/2020 3:59 Re sults for this AM CDT procedure are i n the results section. PHOSPHORUS LEVEL AM 10/23/2020 3:59 Results for this AM CDT procedure are i n the results section. MAGNESIUM LEVEL AM 10/23/2020 3:59 Results for this AM CDT procedure are i n the results section. COMPREHENSIVE METABOLIC AM 10/23/2020 3:59 PANEL AM CDT HEPATIC FUNCTION PANEL AM 10/23/2020 3:59 AM CDT APTT AM 10/23/2020 3:59 Results for this AM CDT procedure are i n the results section. PROTHROMBIN TIME AM 10/23/2020 3:59 Results for this AM CDT procedure are i n the results section. OSCILLATORY PEP Routine 10/23/2020 2:00 AM CDT POC GLUCOSE SCREEN Routine 10/23/2020 12:11 Resul ts for this AM CDT procedure are i n the results section. URINALYSIS MICROSCOPIC Routine 10/22/2020 11:37 R esults for this PM CDT procedure are i n the results section. URINALYSIS WITH Now 10/22/2020 11:37 Results for this MICROSCOPIC IF PM CDT procedure are in INDICATED the results section. OSCILLATORY PEP Routine 10/22/2020 8:00 PM CDT POC GLUCOSE SCREEN Routine 10/22/2020 7:03 Resul ts for this PM CDT procedure are i n the results section. XR ABDOMEN 1 VW STAT 10/22/2020 4:53 Results for this PORTABLE PM CDT procedure are i n the results section. OSCILLATORY PEP Routine 10/22/2020 2:00 PM CDT POC GLUCOSE SCREEN Routine 10/22/2020 12:08 Resul ts for this PM CDT procedure are i n the results section. XR CHEST 1 VW PORTABLE STAT 10/22/2020 9:41 R esults for this AM CDT procedure are i n the results section. CT CHEST WO CONTRAST Routine 10/22/2020 8:09 Res ults for this AM CDT procedure are i n the results section. OSCILLATORY PEP Routine 10/22/2020 8:00 AM CDT POC GLUCOSE SCREEN Routine 10/22/2020 6:24 Resul ts for this AM CDT procedure are i n the results section. MANUAL DIFFERENTIAL STAT 10/22/2020 3:28 Resu lts for this AM CDT procedure are i n the results section. HC CENT/MARKOS CATH STAT 10/22/2020 3:28 Result s for this VENOUS COL AM CDT procedure are i n the results section. CALCIUM LEVEL TOTAL AM 10/22/2020 2:01 Resu lts for this AM CDT procedure are i n the results section. .GLOMERULAR FILTRATION AM 10/22/2020 2:01 R esults for this RATE AM CDT procedure are i n the results section. SERUM CREATININE AM 10/22/2020 2:01 Results for this AM CDT procedure are i n the results section. ELECTROLYTE PANEL AM 10/22/2020 2:01 Result s for this AM CDT procedure are i n the results section. BLOOD UREA NITROGEN AM 10/22/2020 2:01 Resu lts for this AM CDT procedure are i n the results section. GLUCOSE LEVEL AM 10/22/2020 2:01 Results fo r this AM CDT procedure are i n the results section. FRACTIONATED BILIRUBIN AM 10/22/2020 2:01 R esults for this AM CDT procedure are i n the results section. TOTAL PROTEIN AM 10/22/2020 2:01 Results fo r this AM CDT procedure are i n the results section. ASPARTATE AM 10/22/2020 2:01 Results for this AMINOTRANSFERASE AM CDT procedure a re in the results section. ALANINE AM 10/22/2020 2:01 Results for this AMINOTRANSFERASE AM CDT procedure a re in the results section. ALKALINE PHOSPHATASE AM 10/22/2020 2:01 Res ults for this AM CDT procedure are i n the results section. ALBUMIN LEVEL AM 10/22/2020 2:01 Results fo r this AM CDT procedure are i n the results section. FERRITIN LVL AM 10/22/2020 2:01 Results for this AM CDT procedure are i n the results section. LACTATE DEHYDROGENASE AM 10/22/2020 2:01 Re sults for this AM CDT procedure are i n the results section. PHOSPHORUS LEVEL AM 10/22/2020 2:01 Results for this AM CDT procedure are i n the results section. MAGNESIUM LEVEL AM 10/22/2020 2:01 Results for this AM CDT procedure are i n the results section. COMPREHENSIVE METABOLIC AM 10/22/2020 2:01 PANEL AM CDT HEPATIC FUNCTION PANEL AM 10/22/2020 2:01 AM CDT APTT AM 10/22/2020 2:01 Results for this AM CDT procedure are i n the results section. PROTHROMBIN TIME AM 10/22/2020 2:01 Results for this AM CDT procedure are i n the results section. OSCILLATORY PEP Routine 10/22/2020 2:00 AM CDT OSCILLATORY PEP Routine 10/21/2020 8:00 PM CDT POC GLUCOSE SCREEN Routine 10/21/2020 6:10 Resul ts for this PM CDT procedure are i n the results section. OSCILLATORY PEP Routine 10/21/2020 2:00 PM CDT GASTROINTESTINAL Routine 10/21/2020 1:49 Results for this MULTIPLEX PANEL PATH PM CDT procedu re are in REVIEW the results section. C DIFFICILE DNA ASSAY Routine 10/21/2020 1:49 Re sults for this PATH REVIEW PM CDT procedure are i n the results section. GASTROINTESTINAL Now 10/21/2020 1:49 Results for this MULTIPLEX PANEL PM CDT procedure ar e in the results section. C DIFFICILE DNA ASSAY Now 10/21/2020 1:49 Re sults for this PM CDT procedure are i n the results section. POC GLUCOSE SCREEN Routine 10/21/2020 12:13 Resul ts for this PM CDT procedure are i n the results section. POC GLUCOSE SCREEN Routine 10/21/2020 6:15 Resul ts for this AM CDT procedure are i n the results section. MANUAL DIFFERENTIAL AM 10/21/2020 4:51 Resu lts for this AM CDT procedure are i n the results section. Results CBC AM 10/21/2020 4:51 Results for this AM CDT procedure are i n the results section. CALCIUM LEVEL TOTAL AM 10/21/2020 4:51 Resu lts for this AM CDT procedure are i n the results section. .GLOMERULAR FILTRATION AM 10/21/2020 4:51 R esults for this RATE AM CDT procedure are i n the results section. SERUM CREATININE AM 10/21/2020 4:51 Results for this AM CDT procedure are i n the results section. ELECTROLYTE PANEL AM 10/21/2020 4:51 Result s for this AM CDT procedure are i n the results section. BLOOD UREA NITROGEN AM 10/21/2020 4:51 Resu lts for this AM CDT procedure are i n the results section. GLUCOSE LEVEL AM 10/21/2020 4:51 Results fo r this AM CDT procedure are i n the results section. FRACTIONATED BILIRUBIN AM 10/21/2020 4:51 R esults for this AM CDT procedure are i n the results section. TOTAL PROTEIN AM 10/21/2020 4:51 Results fo r this AM CDT procedure are i n the results section. ASPARTATE AM 10/21/2020 4:51 Results for this AMINOTRANSFERASE AM CDT procedure a re in the results section. ALANINE AM 10/21/2020 4:51 Results for this AMINOTRANSFERASE AM CDT procedure a re in the results section. ALKALINE PHOSPHATASE AM 10/21/2020 4:51 Res ults for this AM CDT procedure are i n the results section. ALBUMIN LEVEL AM 10/21/2020 4:51 Results fo r this AM CDT procedure are i n the results section. COMPLETE BLOOD COUNT W/ AM 10/21/2020 4:51 DIFFERENTIAL AM CDT FERRITIN LVL AM 10/21/2020 4:51 Results for this AM CDT procedure are i n the results section. LACTATE DEHYDROGENASE AM 10/21/2020 4:51 Re sults for this AM CDT procedure are i n the results section. PHOSPHORUS LEVEL AM 10/21/2020 4:51 Results for this AM CDT procedure are i n the results section. MAGNESIUM LEVEL AM 10/21/2020 4:51 Results for this AM CDT procedure are i n the results section. COMPREHENSIVE METABOLIC AM 10/21/2020 4:51 PANEL AM CDT HEPATIC FUNCTION PANEL AM 10/21/2020 4:51 AM CDT APTT AM 10/21/2020 4:51 Results for this AM CDT procedure are i n the results section. PROTHROMBIN TIME AM 10/21/2020 4:51 Results for this AM CDT procedure are i n the results section. CT ABDOMEN PELVIS WO Routine 10/21/2020 12:16 Res ults for this CONTRAST AM CDT procedure are i n the results section. POC GLUCOSE SCREEN Routine 10/20/2020 10:33 Resul ts for this PM CDT procedure are i n the results section. OSCILLATORY PEP Routine 10/20/2020 8:00 PM CDT LOWER RESPIRATORY Now 10/20/2020 7:26 Result s for this CULTURE W/ GRAM STAIN PM CDT proced ure are in the results section. POC GLUCOSE SCREEN Routine 10/20/2020 5:16 Resul ts for this PM CDT procedure are i n the results section. OSCILLATORY PEP Routine 10/20/2020 2:00 PM CDT COVID-19 (SARS-COV-2) Now 10/20/2020 12:18 Re sults for this PCR-ASYMPTOMATIC MC PM CDT procedur e are in the results section. URINE CULTURE Now 10/20/2020 12:05 Results fo r this PM CDT procedure are i n the results section. XR ABDOMEN 1 VW Routine 10/20/2020 10:36 Results for this PORTABLE AM CDT procedure are i n the results section. POC GLUCOSE SCREEN Routine 10/20/2020 9:39 Resul ts for this AM CDT procedure are i n the results section. OSCILLATORY PEP Routine 10/20/2020 8:00 AM CDT TMP INTERPRETATION Routine 10/20/2020 4:17 Resul ts for this ANTIBODY SCREEN AM CDT procedure ar e in NEGATIVE the results section. CLOT EXPIRATION DATE Routine 10/20/2020 4:17 Res ults for this AM CDT procedure are i n the results section. ANTIBODY SCREEN Routine 10/20/2020 4:17 Results for this AM CDT procedure are i n the results section. ABORH Routine 10/20/2020 4:17 Results for this AM CDT procedure are i n the results section. MANUAL DIFFERENTIAL AM 10/20/2020 4:17 Resu lts for this AM CDT procedure are i n the results section. Results CBC AM 10/20/2020 4:17 Results for this AM CDT procedure are i n the results section. CALCIUM LEVEL TOTAL AM 10/20/2020 4:17 Resu lts for this AM CDT procedure are i n the results section. .GLOMERULAR FILTRATION AM 10/20/2020 4:17 R esults for this RATE AM CDT procedure are i n the results section. SERUM CREATININE AM 10/20/2020 4:17 Results for this AM CDT procedure are i n the results section. ELECTROLYTE PANEL AM 10/20/2020 4:17 Result s for this AM CDT procedure are i n the results section. BLOOD UREA NITROGEN AM 10/20/2020 4:17 Resu lts for this AM CDT procedure are i n the results section. GLUCOSE LEVEL AM 10/20/2020 4:17 Results fo r this AM CDT procedure are i n the results section. FRACTIONATED BILIRUBIN AM 10/20/2020 4:17 R esults for this AM CDT procedure are i n the results section. TOTAL PROTEIN AM 10/20/2020 4:17 Results fo r this AM CDT procedure are i n the results section. ASPARTATE AM 10/20/2020 4:17 Results for this AMINOTRANSFERASE AM CDT procedure a re in the results section. ALANINE AM 10/20/2020 4:17 Results for this AMINOTRANSFERASE AM CDT procedure a re in the results section. ALKALINE PHOSPHATASE AM 10/20/2020 4:17 Res ults for this AM CDT procedure are i n the results section. ALBUMIN LEVEL AM 10/20/2020 4:17 Results fo r this AM CDT procedure are i n the results section. TYPE AND SCREEN Routine 10/20/2020 4:17 AM CDT COMPLETE BLOOD COUNT W/ AM 10/20/2020 4:17 DIFFERENTIAL AM CDT FERRITIN LVL AM 10/20/2020 4:17 Results for this AM CDT procedure are i n the results section. LACTATE DEHYDROGENASE AM 10/20/2020 4:17 Re sults for this AM CDT procedure are i n the results section. PHOSPHORUS LEVEL AM 10/20/2020 4:17 Results for this AM CDT procedure are i n the results section. MAGNESIUM LEVEL AM 10/20/2020 4:17 Results for this AM CDT procedure are i n the results section. COMPREHENSIVE METABOLIC AM 10/20/2020 4:17 PANEL AM CDT HEPATIC FUNCTION PANEL AM 10/20/2020 4:17 AM CDT APTT AM 10/20/2020 4:17 Results for this AM CDT procedure are i n the results section. PROTHROMBIN TIME AM 10/20/2020 4:17 Results for this AM CDT procedure are i n the results section. POC GLUCOSE SCREEN Routine 10/20/2020 4:10 Resul ts for this AM CDT procedure are i n the results section. OSCILLATORY PEP Routine 10/20/2020 2:00 AM CDT POC GLUCOSE SCREEN Routine 10/19/2020 8:35 Resul ts for this PM CDT procedure are i n the results section. OSCILLATORY PEP Routine 10/19/2020 8:00 PM CDT XR ABDOMEN 1 VW Routine 10/19/2020 5:38 Results for this PORTABLE PM CDT procedure are i n the results section. XR CHEST 1 VW Routine 10/19/2020 5:37 Results fo r this PM CDT procedure are i n the results section. URINALYSIS WITH Routine 10/19/2020 2:34 Results for this MICROSCOPIC IF PM CDT procedure are in INDICATED the results section. URINALYSIS MICROSCOPIC Now 10/19/2020 2:34 R esults for this PM CDT procedure are i n the results section. POC GLUCOSE SCREEN Routine 10/19/2020 2:16 Resul ts for this PM CDT procedure are i n the results section. OSCILLATORY PEP Routine 10/19/2020 2:00 PM CDT TRANSFUSE RED BLOOD Routine 10/19/2020 1:35 CELLS PM CDT LACTATE DEHYDROGENASE Now 10/19/2020 11:25 Re sults for this AM CDT procedure are i n the results section. FERRITIN LVL Now 10/19/2020 11:25 Results for this AM CDT procedure are i n the results section. OSCILLATORY PEP Routine 10/19/2020 8:00 AM CDT POC GLUCOSE SCREEN Routine 10/19/2020 7:23 Resul ts for this AM CDT procedure are i n the results section. PRBC PRODUCT READY FOR Routine 10/19/2020 5:10 R esults for this ACCESS CONSULTANT AM CDT procedure are i n the results section. PREPARE RBC Routine 10/19/2020 5:10 Results for this AM CDT procedure are i n the results section. CALCIUM LEVEL TOTAL AM 10/19/2020 4:25 Resu lts for this AM CDT procedure are i n the results section. .GLOMERULAR FILTRATION AM 10/19/2020 4:25 R esults for this RATE AM CDT procedure are i n the results section. SERUM CREATININE AM 10/19/2020 4:25 Results for this AM CDT procedure are i n the results section. ELECTROLYTE PANEL AM 10/19/2020 4:25 Result s for this AM CDT procedure are i n the results section. BLOOD UREA NITROGEN AM 10/19/2020 4:25 Resu lts for this AM CDT procedure are i n the results section. GLUCOSE LEVEL AM 10/19/2020 4:25 Results fo r this AM CDT procedure are i n the results section. FRACTIONATED BILIRUBIN AM 10/19/2020 4:25 R esults for this AM CDT procedure are i n the results section. TOTAL PROTEIN AM 10/19/2020 4:25 Results fo r this AM CDT procedure are i n the results section. ASPARTATE AM 10/19/2020 4:25 Results for this AMINOTRANSFERASE AM CDT procedure a re in the results section. ALANINE AM 10/19/2020 4:25 Results for this AMINOTRANSFERASE AM CDT procedure a re in the results section. ALKALINE PHOSPHATASE AM 10/19/2020 4:25 Res ults for this AM CDT procedure are i n the results section. ALBUMIN LEVEL AM 10/19/2020 4:25 Results fo r this AM CDT procedure are i n the results section. LACTIC ACID, VENOUS AM 10/19/2020 4:25 Resu lts for this AM CDT procedure are i n the results section. PHOSPHORUS LEVEL AM 10/19/2020 4:25 Results for this AM CDT procedure are i n the results section. MAGNESIUM LEVEL AM 10/19/2020 4:25 Results for this AM CDT procedure are i n the results section. COMPREHENSIVE METABOLIC AM 10/19/2020 4:25 PANEL AM CDT COMPLETE BLOOD COUNT W/ AM 10/19/2020 4:25 Results for this INDICES AM CDT procedure are i n the results section. HEPATIC FUNCTION PANEL AM 10/19/2020 4:25 AM CDT APTT AM 10/19/2020 4:25 Results for this AM CDT procedure are i n the results section. PROTHROMBIN TIME AM 10/19/2020 4:25 Results for this AM CDT procedure are i n the results section. POC GLUCOSE SCREEN Routine 10/19/2020 1:20 Resul ts for this AM CDT procedure are i n the results section. OSCILLATORY PEP Routine 10/18/2020 8:00 PM CDT POC GLUCOSE SCREEN Routine 10/18/2020 7:48 Resul ts for this PM CDT procedure are i n the results section. VRE CULTURE Routine 10/18/2020 4:11 Results for this PM CDT procedure are i n the results section. POC GLUCOSE SCREEN Routine 10/18/2020 12:19 Resul ts for this PM CDT procedure are i n the results section. OSCILLATORY PEP Routine 10/18/2020 8:00 AM CDT POC GLUCOSE SCREEN Routine 10/18/2020 4:55 Resul ts for this AM CDT procedure are i n the results section. CALCIUM LEVEL TOTAL AM 10/18/2020 4:09 Resu lts for this AM CDT procedure are i n the results section. .GLOMERULAR FILTRATION AM 10/18/2020 4:09 R esults for this RATE AM CDT procedure are i n the results section. SERUM CREATININE AM 10/18/2020 4:09 Results for this AM CDT procedure are i n the results section. ELECTROLYTE PANEL AM 10/18/2020 4:09 Result s for this AM CDT procedure are i n the results section. BLOOD UREA NITROGEN AM 10/18/2020 4:09 Resu lts for this AM CDT procedure are i n the results section. GLUCOSE LEVEL AM 10/18/2020 4:09 Results fo r this AM CDT procedure are i n the results section. FRACTIONATED BILIRUBIN AM 10/18/2020 4:09 R esults for this AM CDT procedure are i n the results section. TOTAL PROTEIN AM 10/18/2020 4:09 Results fo r this AM CDT procedure are i n the results section. ASPARTATE AM 10/18/2020 4:09 Results for this AMINOTRANSFERASE AM CDT procedure a re in the results section. ALANINE AM 10/18/2020 4:09 Results for this AMINOTRANSFERASE AM CDT procedure a re in the results section. ALKALINE PHOSPHATASE AM 10/18/2020 4:09 Res ults for this AM CDT procedure are i n the results section. ALBUMIN LEVEL AM 10/18/2020 4:09 Results fo r this AM CDT procedure are i n the results section. LACTIC ACID, VENOUS AM 10/18/2020 4:09 Resu lts for this AM CDT procedure are i n the results section. PHOSPHORUS LEVEL AM 10/18/2020 4:09 Results for this AM CDT procedure are i n the results section. MAGNESIUM LEVEL AM 10/18/2020 4:09 Results for this AM CDT procedure are i n the results section. COMPREHENSIVE METABOLIC AM 10/18/2020 4:09 PANEL AM CDT COMPLETE BLOOD COUNT W/ AM 10/18/2020 4:09 Results for this INDICES AM CDT procedure are i n the results section. HEPATIC FUNCTION PANEL AM 10/18/2020 4:09 AM CDT APTT AM 10/18/2020 4:09 Results for this AM CDT procedure are i n the results section. PROTHROMBIN TIME AM 10/18/2020 4:09 Results for this AM CDT procedure are i n the results section. OSCILLATORY PEP Routine 10/18/2020 2:00 AM CDT POC GLUCOSE SCREEN Routine 10/17/2020 8:41 Resul ts for this PM CDT procedure are i n the results section. OSCILLATORY PEP Routine 10/17/2020 8:00 PM CDT TRANSFUSE RED BLOOD Routine 10/17/2020 4:05 CELLS PM CDT POC GLUCOSE SCREEN Routine 10/17/2020 2:47 Resul ts for this PM CDT procedure are i n the results section. OSCILLATORY PEP Routine 10/17/2020 2:00 PM CDT HEMODIALYSIS Routine 10/17/2020 12:39 Results for this PM CDT procedure are i n the results section. OSCILLATORY PEP Routine 10/17/2020 11:31 AM CDT OSCILLATORY PEP Routine 10/17/2020 11:31 AM CDT OSCILLATORY PEP Routine 10/17/2020 11:31 AM CDT OSCILLATORY PEP Routine 10/17/2020 11:31 AM CDT PRBC PRODUCT READY FOR Routine 10/17/2020 8:21 R esults for this ACCESS CONSULTANT AM CDT procedure are i n the results section. PREPARE RBC Routine 10/17/2020 8:21 Results for this AM CDT procedure are i n the results section. POC GLUCOSE SCREEN Routine 10/17/2020 7:14 Resul ts for this AM CDT procedure are i n the results section. TMP CROSSMATCH Routine 10/17/2020 4:16 Results f or this INTERPRETATION AM CDT procedure are in the results section. CLOT EXPIRATION DATE Routine 10/17/2020 4:16 Res ults for this AM CDT procedure are i n the results section. TMP INTERPRETATION Routine 10/17/2020 4:16 Resul ts for this ANTIBODY SCREEN AM CDT procedure ar e in NEGATIVE the results section. HEPATITIS B SURFACE AG Routine 10/17/2020 4:16 R esults for this W/CONFIRM AM CDT procedure are i n the results section. ANTIBODY SCREEN Routine 10/17/2020 4:16 Results for this AM CDT procedure are i n the results section. ABORH Routine 10/17/2020 4:16 Results for this AM CDT procedure are i n the results section. CALCIUM LEVEL TOTAL AM 10/17/2020 4:16 Resu lts for this AM CDT procedure are i n the results section. .GLOMERULAR FILTRATION AM 10/17/2020 4:16 R esults for this RATE AM CDT procedure are i n the results section. SERUM CREATININE AM 10/17/2020 4:16 Results for this AM CDT procedure are i n the results section. ELECTROLYTE PANEL AM 10/17/2020 4:16 Result s for this AM CDT procedure are i n the results section. BLOOD UREA NITROGEN AM 10/17/2020 4:16 Resu lts for this AM CDT procedure are i n the results section. GLUCOSE LEVEL AM 10/17/2020 4:16 Results fo r this AM CDT procedure are i n the results section. FRACTIONATED BILIRUBIN AM 10/17/2020 4:16 R esults for this AM CDT procedure are i n the results section. TOTAL PROTEIN AM 10/17/2020 4:16 Results fo r this AM CDT procedure are i n the results section. ASPARTATE AM 10/17/2020 4:16 Results for this AMINOTRANSFERASE AM CDT procedure a re in the results section. ALANINE AM 10/17/2020 4:16 Results for this AMINOTRANSFERASE AM CDT procedure a re in the results section. ALKALINE PHOSPHATASE AM 10/17/2020 4:16 Res ults for this AM CDT procedure are i n the results section. ALBUMIN LEVEL AM 10/17/2020 4:16 Results fo r this AM CDT procedure are i n the results section. TYPE AND SCREEN Routine 10/17/2020 4:16 AM CDT LACTIC ACID, VENOUS AM 10/17/2020 4:16 Resu lts for this AM CDT procedure are i n the results section. PHOSPHORUS LEVEL AM 10/17/2020 4:16 Results for this AM CDT procedure are i n the results section. MAGNESIUM LEVEL AM 10/17/2020 4:16 Results for this AM CDT procedure are i n the results section. COMPREHENSIVE METABOLIC AM 10/17/2020 4:16 PANEL AM CDT COMPLETE BLOOD COUNT W/ AM 10/17/2020 4:16 Results for this INDICES AM CDT procedure are i n the results section. HEPATIC FUNCTION PANEL AM 10/17/2020 4:16 AM CDT APTT AM 10/17/2020 4:16 Results for this AM CDT procedure are i n the results section. PROTHROMBIN TIME AM 10/17/2020 4:16 Results for this AM CDT procedure are i n the results section. HEPATITIS B SURFACE Routine 10/17/2020 4:16 Resu lts for this ANTIGEN, SERUM AM CDT procedure are in the results section. POC GLUCOSE SCREEN Routine 10/17/2020 12:59 Resul ts for this AM CDT procedure are i n the results section. POC GLUCOSE SCREEN Routine 10/16/2020 6:06 Resul ts for this PM CDT procedure are i n the results section. POC GLUCOSE SCREEN Routine 10/16/2020 1:39 Resul ts for this PM CDT procedure are i n the results section. POC GLUCOSE SCREEN Routine 10/16/2020 6:19 Resul ts for this AM CDT procedure are i n the results section. CALCIUM LEVEL TOTAL AM 10/16/2020 4:10 Resu lts for this AM CDT procedure are i n the results section. .GLOMERULAR FILTRATION AM 10/16/2020 4:10 R esults for this RATE AM CDT procedure are i n the results section. SERUM CREATININE AM 10/16/2020 4:10 Results for this AM CDT procedure are i n the results section. ELECTROLYTE PANEL AM 10/16/2020 4:10 Result s for this AM CDT procedure are i n the results section. BLOOD UREA NITROGEN AM 10/16/2020 4:10 Resu lts for this AM CDT procedure are i n the results section. GLUCOSE LEVEL AM 10/16/2020 4:10 Results fo r this AM CDT procedure are i n the results section. FRACTIONATED BILIRUBIN AM 10/16/2020 4:10 R esults for this AM CDT procedure are i n the results section. TOTAL PROTEIN AM 10/16/2020 4:10 Results fo r this AM CDT procedure are i n the results section. ASPARTATE AM 10/16/2020 4:10 Results for this AMINOTRANSFERASE AM CDT procedure a re in the results section. ALANINE AM 10/16/2020 4:10 Results for this AMINOTRANSFERASE AM CDT procedure a re in the results section. ALKALINE PHOSPHATASE AM 10/16/2020 4:10 Res ults for this AM CDT procedure are i n the results section. ALBUMIN LEVEL AM 10/16/2020 4:10 Results fo r this AM CDT procedure are i n the results section. LACTIC ACID, VENOUS AM 10/16/2020 4:10 Resu lts for this AM CDT procedure are i n the results section. PHOSPHORUS LEVEL AM 10/16/2020 4:10 Results for this AM CDT procedure are i n the results section. MAGNESIUM LEVEL AM 10/16/2020 4:10 Results for this AM CDT procedure are i n the results section. COMPREHENSIVE METABOLIC AM 10/16/2020 4:10 PANEL AM CDT COMPLETE BLOOD COUNT W/ AM 10/16/2020 4:10 Results for this INDICES AM CDT procedure are i n the results section. HEPATIC FUNCTION PANEL AM 10/16/2020 4:10 AM CDT APTT AM 10/16/2020 4:10 Results for this AM CDT procedure are i n the results section. PROTHROMBIN TIME AM 10/16/2020 4:10 Results for this AM CDT procedure are i n the results section. POC GLUCOSE SCREEN Routine 10/16/2020 12:12 Resul ts for this AM CDT procedure are i n the results section. POC GLUCOSE SCREEN Routine 10/15/2020 6:20 Resul ts for this PM CDT procedure are i n the results section. POC GLUCOSE SCREEN Routine 10/15/2020 12:52 Resul ts for this PM CDT procedure are i n the results section. URINALYSIS WITH Routine 10/15/2020 11:58 Results for this MICROSCOPIC IF AM CDT procedure are in INDICATED the results section. URINALYSIS MICROSCOPIC Now 10/15/2020 11:58 R esults for this AM CDT procedure are i n the results section. XR CHEST 1 VW PORTABLE Routine 10/15/2020 10:49 R esults for this AM CDT procedure are i n the results section. POC GLUCOSE SCREEN Routine 10/15/2020 6:26 Resul ts for this AM CDT procedure are i n the results section. HEPATITIS B SURFACE AG Routine 10/15/2020 4:44 R esults for this W/CONFIRM AM CDT procedure are i n the results section. CALCIUM LEVEL TOTAL AM 10/15/2020 4:44 Resu lts for this AM CDT procedure are i n the results section. .GLOMERULAR FILTRATION AM 10/15/2020 4:44 R esults for this RATE AM CDT procedure are i n the results section. SERUM CREATININE AM 10/15/2020 4:44 Results for this AM CDT procedure are i n the results section. ELECTROLYTE PANEL AM 10/15/2020 4:44 Result s for this AM CDT procedure are i n the results section. BLOOD UREA NITROGEN AM 10/15/2020 4:44 Resu lts for this AM CDT procedure are i n the results section. GLUCOSE LEVEL AM 10/15/2020 4:44 Results fo r this AM CDT procedure are i n the results section. FRACTIONATED BILIRUBIN AM 10/15/2020 4:44 R esults for this AM CDT procedure are i n the results section. TOTAL PROTEIN AM 10/15/2020 4:44 Results fo r this AM CDT procedure are i n the results section. ASPARTATE AM 10/15/2020 4:44 Results for this AMINOTRANSFERASE AM CDT procedure a re in the results section. ALANINE AM 10/15/2020 4:44 Results for this AMINOTRANSFERASE AM CDT procedure a re in the results section. ALKALINE PHOSPHATASE AM 10/15/2020 4:44 Res ults for this AM CDT procedure are i n the results section. ALBUMIN LEVEL AM 10/15/2020 4:44 Results fo r this AM CDT procedure are i n the results section. LACTIC ACID, VENOUS AM 10/15/2020 4:44 Resu lts for this AM CDT procedure are i n the results section. PHOSPHORUS LEVEL AM 10/15/2020 4:44 Results for this AM CDT procedure are i n the results section. MAGNESIUM LEVEL AM 10/15/2020 4:44 Results for this AM CDT procedure are i n the results section. COMPREHENSIVE METABOLIC AM 10/15/2020 4:44 PANEL AM CDT COMPLETE BLOOD COUNT W/ AM 10/15/2020 4:44 Results for this INDICES AM CDT procedure are i n the results section. HEPATIC FUNCTION PANEL AM 10/15/2020 4:44 AM CDT APTT AM 10/15/2020 4:44 Results for this AM CDT procedure are i n the results section. PROTHROMBIN TIME AM 10/15/2020 4:44 Results for this AM CDT procedure are i n the results section. HEPATITIS B SURFACE Routine 10/15/2020 4:44 Resu lts for this ANTIGEN, SERUM AM CDT procedure are in the results section. EKG, 12-LEAD (PORTABLE) Routine 10/15/2020 POC GLUCOSE SCREEN Routine 10/14/2020 11:42 Resul ts for this PM CDT procedure are i n the results section. POC GLUCOSE SCREEN Routine 10/14/2020 6:03 Resul ts for this PM CDT procedure are i n the results section. TRANSFUSE RED BLOOD Routine 10/14/2020 3:15 CELLS PM CDT POC GLUCOSE SCREEN Routine 10/14/2020 6:48 Resul ts for this AM CDT procedure are i n the results section. POC GLUCOSE SCREEN Routine 10/14/2020 6:28 Resul ts for this AM CDT procedure are i n the results section. PRBC PRODUCT READY FOR Routine 10/14/2020 5:07 R esults for this ACCESS CONSULTANT AM CDT procedure are i n the results section. PREPARE RBC Routine 10/14/2020 5:07 Results for this AM CDT procedure are i n the results section. CLOT EXPIRATION DATE Routine 10/14/2020 4:11 Res ults for this AM CDT procedure are i n the results section. TMP INTERPRETATION Routine 10/14/2020 4:11 Resul ts for this ANTIBODY SCREEN AM CDT procedure ar e in NEGATIVE the results section. ANTIBODY SCREEN Routine 10/14/2020 4:11 Results for this AM CDT procedure are i n the results section. ABORH Routine 10/14/2020 4:11 Results for this AM CDT procedure are i n the results section. CALCIUM LEVEL TOTAL AM 10/14/2020 4:11 Resu lts for this AM CDT procedure are i n the results section. .GLOMERULAR FILTRATION AM 10/14/2020 4:11 R esults for this RATE AM CDT procedure are i n the results section. SERUM CREATININE AM 10/14/2020 4:11 Results for this AM CDT procedure are i n the results section. ELECTROLYTE PANEL AM 10/14/2020 4:11 Result s for this AM CDT procedure are i n the results section. BLOOD UREA NITROGEN AM 10/14/2020 4:11 Resu lts for this AM CDT procedure are i n the results section. GLUCOSE LEVEL AM 10/14/2020 4:11 Results fo r this AM CDT procedure are i n the results section. FRACTIONATED BILIRUBIN AM 10/14/2020 4:11 R esults for this AM CDT procedure are i n the results section. TOTAL PROTEIN AM 10/14/2020 4:11 Results fo r this AM CDT procedure are i n the results section. ASPARTATE AM 10/14/2020 4:11 Results for this AMINOTRANSFERASE AM CDT procedure a re in the results section. ALANINE AM 10/14/2020 4:11 Results for this AMINOTRANSFERASE AM CDT procedure a re in the results section. ALKALINE PHOSPHATASE AM 10/14/2020 4:11 Res ults for this AM CDT procedure are i n the results section. ALBUMIN LEVEL AM 10/14/2020 4:11 Results fo r this AM CDT procedure are i n the results section. TYPE AND SCREEN Routine 10/14/2020 4:11 AM CDT LACTIC ACID, VENOUS AM 10/14/2020 4:11 Resu lts for this AM CDT procedure are i n the results section. PHOSPHORUS LEVEL AM 10/14/2020 4:11 Results for this AM CDT procedure are i n the results section. MAGNESIUM LEVEL AM 10/14/2020 4:11 Results for this AM CDT procedure are i n the results section. COMPREHENSIVE METABOLIC AM 10/14/2020 4:11 PANEL AM CDT COMPLETE BLOOD COUNT W/ AM 10/14/2020 4:11 Results for this INDICES AM CDT procedure are i n the results section. HEPATIC FUNCTION PANEL AM 10/14/2020 4:11 AM CDT APTT AM 10/14/2020 4:11 Results for this AM CDT procedure are i n the results section. PROTHROMBIN TIME AM 10/14/2020 4:11 Results for this AM CDT procedure are i n the results section. POC GLUCOSE SCREEN Routine 10/14/2020 12:30 Resul ts for this AM CDT procedure are i n the results section. POC GLUCOSE SCREEN Routine 10/13/2020 5:56 Resul ts for this PM CDT procedure are i n the results section. POC GLUCOSE SCREEN Routine 10/13/2020 12:18 Resul ts for this PM CDT procedure are i n the results section. COVID-19 (SARS-COV-2) Now 10/13/2020 11:11 Re sults for this PCR-ASYMPTOMATIC MC AM CDT procedur e are in the results section. URINE CULTURE Now 10/13/2020 8:54 Results fo r this AM CDT procedure are i n the results section. POC GLUCOSE SCREEN Routine 10/13/2020 6:13 Resul ts for this AM CDT procedure are i n the results section. CALCIUM LEVEL TOTAL AM 10/13/2020 2:21 Resu lts for this AM CDT procedure are i n the results section. .GLOMERULAR FILTRATION AM 10/13/2020 2:21 R esults for this RATE AM CDT procedure are i n the results section. SERUM CREATININE AM 10/13/2020 2:21 Results for this AM CDT procedure are i n the results section. ELECTROLYTE PANEL AM 10/13/2020 2:21 Result s for this AM CDT procedure are i n the results section. BLOOD UREA NITROGEN AM 10/13/2020 2:21 Resu lts for this AM CDT procedure are i n the results section. GLUCOSE LEVEL AM 10/13/2020 2:21 Results fo r this AM CDT procedure are i n the results section. FRACTIONATED BILIRUBIN AM 10/13/2020 2:21 R esults for this AM CDT procedure are i n the results section. TOTAL PROTEIN AM 10/13/2020 2:21 Results fo r this AM CDT procedure are i n the results section. ASPARTATE AM 10/13/2020 2:21 Results for this AMINOTRANSFERASE AM CDT procedure a re in the results section. ALANINE AM 10/13/2020 2:21 Results for this AMINOTRANSFERASE AM CDT procedure a re in the results section. ALKALINE PHOSPHATASE AM 10/13/2020 2:21 Res ults for this AM CDT procedure are i n the results section. ALBUMIN LEVEL AM 10/13/2020 2:21 Results fo r this AM CDT procedure are i n the results section. LACTIC ACID, VENOUS AM 10/13/2020 2:21 Resu lts for this AM CDT procedure are i n the results section. PHOSPHORUS LEVEL AM 10/13/2020 2:21 Results for this AM CDT procedure are i n the results section. MAGNESIUM LEVEL AM 10/13/2020 2:21 Results for this AM CDT procedure are i n the results section. COMPREHENSIVE METABOLIC AM 10/13/2020 2:21 PANEL AM CDT COMPLETE BLOOD COUNT W/ AM 10/13/2020 2:21 Results for this INDICES AM CDT procedure are i n the results section. HEPATIC FUNCTION PANEL AM 10/13/2020 2:21 AM CDT APTT AM 10/13/2020 2:21 Results for this AM CDT procedure are i n the results section. PROTHROMBIN TIME AM 10/13/2020 2:21 Results for this AM CDT procedure are i n the results section. XR CHEST 1 VW PORTABLE Routine 10/13/2020 2:17 R esults for this AM CDT procedure are i n the results section. POC GLUCOSE SCREEN Routine 10/12/2020 11:57 Resul ts for this PM CDT procedure are i n the results section. XR ABDOMEN 1 VW Routine 10/12/2020 10:29 Results for this PORTABLE PM CDT procedure are i n the results section. POC GLUCOSE SCREEN Routine 10/12/2020 5:53 Resul ts for this PM CDT procedure are i n the results section. POC GLUCOSE SCREEN Routine 10/12/2020 11:45 Resul ts for this AM CDT procedure are i n the results section. LACTIC ACID, VENOUS Routine 10/12/2020 8:24 Resu lts for this AM CDT procedure are i n the results section. POC GLUCOSE SCREEN Routine 10/12/2020 5:59 Resul ts for this AM CDT procedure are i n the results section. ARTERIAL BLOOD GAS Timed Study 10/12/2020 4:48 Resul ts for this AM CDT procedure are i n the results section. XR CHEST 1 VW PORTABLE Routine 10/12/2020 1:38 R esults for this AM CDT procedure are i n the results section. CALCIUM LEVEL TOTAL AM 10/12/2020 1:28 Resu lts for this AM CDT procedure are i n the results section. .GLOMERULAR FILTRATION AM 10/12/2020 1:28 R esults for this RATE AM CDT procedure are i n the results section. SERUM CREATININE AM 10/12/2020 1:28 Results for this AM CDT procedure are i n the results section. ELECTROLYTE PANEL AM 10/12/2020 1:28 Result s for this AM CDT procedure are i n the results section. BLOOD UREA NITROGEN AM 10/12/2020 1:28 Resu lts for this AM CDT procedure are i n the results section. GLUCOSE LEVEL AM 10/12/2020 1:28 Results fo r this AM CDT procedure are i n the results section. FRACTIONATED BILIRUBIN AM 10/12/2020 1:28 R esults for this AM CDT procedure are i n the results section. TOTAL PROTEIN AM 10/12/2020 1:28 Results fo r this AM CDT procedure are i n the results section. ASPARTATE AM 10/12/2020 1:28 Results for this AMINOTRANSFERASE AM CDT procedure a re in the results section. ALANINE AM 10/12/2020 1:28 Results for this AMINOTRANSFERASE AM CDT procedure a re in the results section. ALKALINE PHOSPHATASE AM 10/12/2020 1:28 Res ults for this AM CDT procedure are i n the results section. ALBUMIN LEVEL AM 10/12/2020 1:28 Results fo r this AM CDT procedure are i n the results section. PHOSPHORUS LEVEL AM 10/12/2020 1:28 Results for this AM CDT procedure are i n the results section. MAGNESIUM LEVEL AM 10/12/2020 1:28 Results for this AM CDT procedure are i n the results section. COMPREHENSIVE METABOLIC AM 10/12/2020 1:28 PANEL AM CDT VANCOMYCIN LEVEL RANDOM AM 10/12/2020 1:28 Results for this AM CDT procedure are i n the results section. COMPLETE BLOOD COUNT W/ AM 10/12/2020 1:28 Results for this INDICES AM CDT procedure are i n the results section. HEPATIC FUNCTION PANEL AM 10/12/2020 1:28 AM CDT APTT AM 10/12/2020 1:28 Results for this AM CDT procedure are i n the results section. PROTHROMBIN TIME AM 10/12/2020 1:28 Results for this AM CDT procedure are i n the results section. LACTIC ACID, VENOUS Routine 10/12/2020 1:28 Resu lts for this AM CDT procedure are i n the results section. POC GLUCOSE SCREEN Routine 10/12/2020 12:23 Resul ts for this AM CDT procedure are i n the results section. TRANSFUSE RED BLOOD Routine 10/11/2020 8:40 CELLS PM CDT LACTIC ACID, VENOUS Routine 10/11/2020 6:06 Resu lts for this PM CDT procedure are i n the results section. POC GLUCOSE SCREEN Routine 10/11/2020 5:21 Resul ts for this PM CDT procedure are i n the results section. PRBC PRODUCT READY FOR Routine 10/11/2020 3:51 R esults for this ACCESS CONSULTANT PM CDT procedure are i n the results section. PREPARE RBC Routine 10/11/2020 3:51 Results for this PM CDT procedure are i n the results section. URINALYSIS MICROSCOPIC Routine 10/11/2020 3:28 R esults for this PM CDT procedure are i n the results section. MANUAL DIFFERENTIAL Timed Study 10/11/2020 3:28 Resu lts for this PM CDT procedure are i n the results section. Results CBC Timed Study 10/11/2020 3:28 Results for this PM CDT procedure are i n the results section. NT PRO BNP Routine 10/11/2020 3:28 Results for this PM CDT procedure are i n the results section. URINALYSIS WITH Now 10/11/2020 3:28 Results for this MICROSCOPIC IF PM CDT procedure are in INDICATED the results section. COMPLETE BLOOD COUNT W/ Timed Study 10/11/2020 3:28 DIFFERENTIAL PM CDT POC GLUCOSE SCREEN Routine 10/11/2020 11:45 Resul ts for this AM CDT procedure are i n the results section. LACTIC ACID, VENOUS Routine 10/11/2020 9:11 Resu lts for this AM CDT procedure are i n the results section. TMP CROSSMATCH Routine 10/11/2020 6:31 Results f or this INTERPRETATION AM CDT procedure are in the results section. TMP INTERPRETATION Routine 10/11/2020 6:31 Resul ts for this ANTIBODY SCREEN AM CDT procedure ar e in NEGATIVE the results section. CLOT EXPIRATION DATE Routine 10/11/2020 6:31 Res ults for this AM CDT procedure are i n the results section. ANTIBODY SCREEN Routine 10/11/2020 6:31 Results for this AM CDT procedure are i n the results section. ABORH Routine 10/11/2020 6:31 Results for this AM CDT procedure are i n the results section. TYPE AND SCREEN Routine 10/11/2020 6:31 AM CDT POC GLUCOSE SCREEN Routine 10/11/2020 5:30 Resul ts for this AM CDT procedure are i n the results section. XR CHEST 1 VW PORTABLE Routine 10/11/2020 1:30 R esults for this AM CDT procedure are i n the results section. ARTERIAL BLOOD GAS Now 10/11/2020 1:29 Resul ts for this AM CDT procedure are i n the results section. CALCIUM LEVEL TOTAL AM 10/11/2020 1:29 Resu lts for this AM CDT procedure are i n the results section. .GLOMERULAR FILTRATION AM 10/11/2020 1:29 R esults for this RATE AM CDT procedure are i n the results section. SERUM CREATININE AM 10/11/2020 1:29 Results for this AM CDT procedure are i n the results section. ELECTROLYTE PANEL AM 10/11/2020 1:29 Result s for this AM CDT procedure are i n the results section. BLOOD UREA NITROGEN AM 10/11/2020 1:29 Resu lts for this AM CDT procedure are i n the results section. GLUCOSE LEVEL AM 10/11/2020 1:29 Results fo r this AM CDT procedure are i n the results section. FRACTIONATED BILIRUBIN AM 10/11/2020 1:29 R esults for this AM CDT procedure are i n the results section. TOTAL PROTEIN AM 10/11/2020 1:29 Results fo r this AM CDT procedure are i n the results section. ASPARTATE AM 10/11/2020 1:29 Results for this AMINOTRANSFERASE AM CDT procedure a re in the results section. ALANINE AM 10/11/2020 1:29 Results for this AMINOTRANSFERASE AM CDT procedure a re in the results section. ALKALINE PHOSPHATASE AM 10/11/2020 1:29 Res ults for this AM CDT procedure are i n the results section. ALBUMIN LEVEL AM 10/11/2020 1:29 Results fo r this AM CDT procedure are i n the results section. PHOSPHORUS LEVEL AM 10/11/2020 1:29 Results for this AM CDT procedure are i n the results section. MAGNESIUM LEVEL AM 10/11/2020 1:29 Results for this AM CDT procedure are i n the results section. COMPREHENSIVE METABOLIC AM 10/11/2020 1:29 PANEL AM CDT COMPLETE BLOOD COUNT W/ AM 10/11/2020 1:29 Results for this INDICES AM CDT procedure are i n the results section. HEPATIC FUNCTION PANEL AM 10/11/2020 1:29 AM CDT APTT AM 10/11/2020 1:29 Results for this AM CDT procedure are i n the results section. PROTHROMBIN TIME AM 10/11/2020 1:29 Results for this AM CDT procedure are i n the results section. LACTIC ACID, VENOUS Routine 10/11/2020 1:29 Resu lts for this AM CDT procedure are i n the results section. POC GLUCOSE SCREEN Routine 10/10/2020 11:48 Resul ts for this PM CDT procedure are i n the results section. POC GLUCOSE SCREEN Routine 10/10/2020 6:30 Resul ts for this PM CDT procedure are i n the results section. XR CHEST 1 VW POST Routine 10/10/2020 3:06 Resul ts for this IMPLANT PM CDT procedure are i n the results section. POC GLUCOSE SCREEN Routine 10/10/2020 11:51 Resul ts for this AM CDT procedure are i n the results section. LACTIC ACID, VENOUS Routine 10/10/2020 10:01 Resu lts for this AM CDT procedure are i n the results section. POC GLUCOSE SCREEN Routine 10/10/2020 5:59 Resul ts for this AM CDT procedure are i n the results section. XR CHEST 1 VW PORTABLE Routine 10/10/2020 1:41 R esults for this AM CDT procedure are i n the results section. GENERAL LABORATORY ADD STAT 10/10/2020 1:37 R esults for this ON TEST AM CDT procedure are i n the results section. CALCIUM LEVEL TOTAL AM 10/10/2020 1:31 Resu lts for this AM CDT procedure are i n the results section. .GLOMERULAR FILTRATION AM 10/10/2020 1:31 R esults for this RATE AM CDT procedure are i n the results section. SERUM CREATININE AM 10/10/2020 1:31 Results for this AM CDT procedure are i n the results section. ELECTROLYTE PANEL AM 10/10/2020 1:31 Result s for this AM CDT procedure are i n the results section. BLOOD UREA NITROGEN AM 10/10/2020 1:31 Resu lts for this AM CDT procedure are i n the results section. GLUCOSE LEVEL AM 10/10/2020 1:31 Results fo r this AM CDT procedure are i n the results section. MAGNESIUM LEVEL AM 10/10/2020 1:31 Results for this AM CDT procedure are i n the results section. PHOSPHORUS LEVEL AM 10/10/2020 1:31 Results for this AM CDT procedure are i n the results section. FRACTIONATED BILIRUBIN AM 10/10/2020 1:31 R esults for this AM CDT procedure are i n the results section. TOTAL PROTEIN AM 10/10/2020 1:31 Results fo r this AM CDT procedure are i n the results section. ASPARTATE AM 10/10/2020 1:31 Results for this AMINOTRANSFERASE AM CDT procedure a re in the results section. ALANINE AM 10/10/2020 1:31 Results for this AMINOTRANSFERASE AM CDT procedure a re in the results section. ALKALINE PHOSPHATASE AM 10/10/2020 1:31 Res ults for this AM CDT procedure are i n the results section. ALBUMIN LEVEL AM 10/10/2020 1:31 Results fo r this AM CDT procedure are i n the results section. COMPLETE BLOOD COUNT W/ AM 10/10/2020 1:31 Results for this INDICES AM CDT procedure are i n the results section. HEPATIC FUNCTION PANEL AM 10/10/2020 1:31 AM CDT APTT AM 10/10/2020 1:31 Results for this AM CDT procedure are i n the results section. PROTHROMBIN TIME AM 10/10/2020 1:31 Results for this AM CDT procedure are i n the results section. LACTIC ACID, VENOUS Routine 10/10/2020 1:29 Resu lts for this AM CDT procedure are i n the results section. POC GLUCOSE SCREEN Routine 10/09/2020 11:47 Resul ts for this PM CDT procedure are i n the results section. POC GLUCOSE SCREEN Routine 10/09/2020 5:49 Resul ts for this PM CDT procedure are i n the results section. POC GLUCOSE SCREEN Routine 10/09/2020 11:12 Resul ts for this AM CDT procedure are i n the results section. XR ABDOMEN 1 VW Routine 10/09/2020 9:33 Results for this PORTABLE AM CDT procedure are i n the results section. CALCIUM IONIZED, VENOUS Now 10/09/2020 8:38 Results for this AM CDT procedure are i n the results section. .GLOMERULAR FILTRATION Now 10/09/2020 8:38 R esults for this RATE AM CDT procedure are i n the results section. SERUM CREATININE Now 10/09/2020 8:38 Results for this AM CDT procedure are i n the results section. ELECTROLYTE PANEL Now 10/09/2020 8:38 Result s for this AM CDT procedure are i n the results section. BLOOD UREA NITROGEN Now 10/09/2020 8:38 Resu lts for this AM CDT procedure are i n the results section. GLUCOSE LEVEL Now 10/09/2020 8:38 Results fo r this AM CDT procedure are i n the results section. PHOSPHORUS LEVEL Now 10/09/2020 8:38 Results for this AM CDT procedure are i n the results section. MAGNESIUM LEVEL Now 10/09/2020 8:38 Results for this AM CDT procedure are i n the results section. PROTHROMBIN TIME Now 10/09/2020 8:38 Results for this AM CDT procedure are i n the results section. APTT Now 10/09/2020 8:38 Results for this AM CDT procedure are i n the results section. BASIC METABOLIC PANEL, Now 10/09/2020 8:38 CALCIUM IONIZED AM CDT LACTIC ACID, VENOUS Routine 10/09/2020 8:38 Resu lts for this AM CDT procedure are i n the results section. POC GLUCOSE SCREEN Routine 10/09/2020 5:28 Resul ts for this AM CDT procedure are i n the results section. TRANSFUSE RED BLOOD Routine 10/09/2020 5:15 CELLS AM CDT PRBC PRODUCT READY FOR Routine 10/09/2020 3:56 R esults for this ACCESS CONSULTANT AM CDT procedure are i n the results section. PREPARE RBC Routine 10/09/2020 3:56 Results for this AM CDT procedure are i n the results section. XR CHEST 1 VW PORTABLE Routine 10/09/2020 3:24 R esults for this AM CDT procedure are i n the results section. HEPATITIS B SURFACE AG Routine 10/09/2020 2:36 R esults for this W/CONFIRM AM CDT procedure are i n the results section. FRACTIONATED BILIRUBIN AM 10/09/2020 2:36 R esults for this AM CDT procedure are i n the results section. TOTAL PROTEIN AM 10/09/2020 2:36 Results fo r this AM CDT procedure are i n the results section. ASPARTATE AM 10/09/2020 2:36 Results for this AMINOTRANSFERASE AM CDT procedure a re in the results section. ALANINE AM 10/09/2020 2:36 Results for this AMINOTRANSFERASE AM CDT procedure a re in the results section. ALKALINE PHOSPHATASE AM 10/09/2020 2:36 Res ults for this AM CDT procedure are i n the results section. ALBUMIN LEVEL AM 10/09/2020 2:36 Results fo r this AM CDT procedure are i n the results section. VANCOMYCIN LEVEL RANDOM AM 10/09/2020 2:36 Results for this AM CDT procedure are i n the results section. COMPLETE BLOOD COUNT W/ AM 10/09/2020 2:36 Results for this INDICES AM CDT procedure are i n the results section. HEPATIC FUNCTION PANEL AM 10/09/2020 2:36 AM CDT APTT AM 10/09/2020 2:36 Results for this AM CDT procedure are i n the results section. PROTHROMBIN TIME AM 10/09/2020 2:36 Results for this AM CDT procedure are i n the results section. HEPATITIS B SURFACE Routine 10/09/2020 2:36 Resu lts for this ANTIGEN, SERUM AM CDT procedure are in the results section. LACTIC ACID, VENOUS Routine 10/09/2020 2:36 Resu lts for this AM CDT procedure are i n the results section. POC GLUCOSE SCREEN Routine 2020 11:28 Resul ts for this PM CDT procedure are i n the results section. POC GLUCOSE SCREEN Routine 2020 5:30 Resul ts for this PM CDT procedure are i n the results section. LACTIC ACID, VENOUS Routine 2020 3:18 Resu lts for this PM CDT procedure are i n the results section. MRSA SCREENING CULTURE Now 2020 12:27 R esults for this PM CDT procedure are i n the results section. POC GLUCOSE SCREEN Routine 2020 11:26 Resul ts for this AM CDT procedure are i n the results section. BLOODCULTURE Now 2020 10:21 Results for this AM CDT procedure are i n the results section. URINE CULTURE Now 2020 10:21 Results fo r this AM CDT procedure are i n the results section. BLOODCULTURE Now 2020 10:21 Results for this AM CDT procedure are i n the results section. TMP CROSSMATCH Routine 2020 8:19 Results f or this INTERPRETATION AM CDT procedure are in the results section. CLOT EXPIRATION DATE Routine 2020 8:19 Res ults for this AM CDT procedure are i n the results section. TMP INTERPRETATION Routine 2020 8:19 Resul ts for this ANTIBODY SCREEN AM CDT procedure ar e in NEGATIVE the results section. MANUAL DIFFERENTIAL Routine 2020 8:19 Resu lts for this AM CDT procedure are i n the results section. Results CBC Routine 2020 8:19 Results for this AM CDT procedure are i n the results section. COMPLETE BLOOD COUNT W/ Routine 2020 8:19 DIFFERENTIAL AM CDT .GLOMERULAR FILTRATION Routine 2020 8:19 R esults for this RATE AM CDT procedure are i n the results section. SERUM CREATININE Routine 2020 8:19 Results for this AM CDT procedure are i n the results section. ELECTROLYTE PANEL Routine 2020 8:19 Result s for this AM CDT procedure are i n the results section. BLOOD UREA NITROGEN Routine 2020 8:19 Resu lts for this AM CDT procedure are i n the results section. GLUCOSE LEVEL Routine 2020 8:19 Results fo r this AM CDT procedure are i n the results section. CALCIUM IONIZED, VENOUS Routine 2020 8:19 Results for this AM CDT procedure are i n the results section. ANTIBODY SCREEN Routine 2020 8:19 Results for this AM CDT procedure are i n the results section. ABORH Routine 2020 8:19 Results for this AM CDT procedure are i n the results section. ARTERIAL BLOOD GAS Routine 2020 8:19 Resul ts for this AM CDT procedure are i n the results section. MAGNESIUM LEVEL Routine 2020 8:19 Results for this AM CDT procedure are i n the results section. PHOSPHORUS LEVEL Routine 2020 8:19 Results for this AM CDT procedure are i n the results section. CALCIUM LEVEL TOTAL Routine 2020 8:19 Resu lts for this AM CDT procedure are i n the results section. BASIC METABOLIC PANEL, Routine 2020 8:19 CALCIUM IONIZED AM CDT LACTIC ACID, VENOUS Routine 2020 8:19 Resu lts for this AM CDT procedure are i n the results section. TYPE AND SCREEN Routine 2020 8:19 AM CDT POC GLUCOSE SCREEN Routine 2020 6:00 Resul ts for this AM CDT procedure are i n the results section. XR CHEST 1 VW PORTABLE Routine 2020 4:07 R esults for this AM CDT procedure are i n the results section. POC GLUCOSE SCREEN Routine 2020 2:33 Resul ts for this AM CDT procedure are i n the results section. FRACTIONATED BILIRUBIN AM 2020 12:52 R esults for this AM CDT procedure are i n the results section. TOTAL PROTEIN AM 2020 12:52 Results fo r this AM CDT procedure are i n the results section. ASPARTATE AM 2020 12:52 Results for this AMINOTRANSFERASE AM CDT procedure a re in the results section. ALANINE AM 2020 12:52 Results for this AMINOTRANSFERASE AM CDT procedure a re in the results section. ALKALINE PHOSPHATASE AM 2020 12:52 Res ults for this AM CDT procedure are i n the results section. ALBUMIN LEVEL AM 2020 12:52 Results fo r this AM CDT procedure are i n the results section. .GLOMERULAR FILTRATION Routine 2020 12:52 R esults for this RATE AM CDT procedure are i n the results section. SERUM CREATININE Routine 2020 12:52 Results for this AM CDT procedure are i n the results section. ELECTROLYTE PANEL Routine 2020 12:52 Result s for this AM CDT procedure are i n the results section. BLOOD UREA NITROGEN Routine 2020 12:52 Resu lts for this AM CDT procedure are i n the results section. GLUCOSE LEVEL Routine 2020 12:52 Results fo r this AM CDT procedure are i n the results section. CALCIUM IONIZED, VENOUS Routine 2020 12:52 Results for this AM CDT procedure are i n the results section. COMPLETE BLOOD COUNT W/ AM 2020 12:52 Results for this INDICES AM CDT procedure are i n the results section. HEPATIC FUNCTION PANEL AM 2020 12:52 AM CDT APTT AM 2020 12:52 Results for this AM CDT procedure are i n the results section. PROTHROMBIN TIME AM 2020 12:52 Results for this AM CDT procedure are i n the results section. ARTERIAL BLOOD GAS Routine 2020 12:52 Resul ts for this AM CDT procedure are i n the results section. MAGNESIUM LEVEL Routine 2020 12:52 Results for this AM CDT procedure are i n the results section. PHOSPHORUS LEVEL Routine 2020 12:52 Results for this AM CDT procedure are i n the results section. CALCIUM LEVEL TOTAL Routine 2020 12:52 Resu lts for this AM CDT procedure are i n the results section. BASIC METABOLIC PANEL, Routine 2020 12:52 CALCIUM IONIZED AM CDT LACTIC ACID, VENOUS Routine 2020 12:52 Resu lts for this AM CDT procedure are i n the results section. POC GLUCOSE SCREEN Routine 10/07/2020 11:57 Resul ts for this PM CDT procedure are i n the results section. POC GLUCOSE SCREEN Routine 10/07/2020 10:20 Resul ts for this PM CDT procedure are i n the results section. POC GLUCOSE SCREEN Routine 10/07/2020 9:13 Resul ts for this PM CDT procedure are i n the results section. POC GLUCOSE SCREEN Routine 10/07/2020 8:05 Resul ts for this PM CDT procedure are i n the results section. POC GLUCOSE SCREEN Routine 10/07/2020 6:26 Resul ts for this PM CDT procedure are i n the results section. POC GLUCOSE SCREEN Routine 10/07/2020 5:20 Resul ts for this PM CDT procedure are i n the results section. .GLOMERULAR FILTRATION Routine 10/07/2020 3:37 R esults for this RATE PM CDT procedure are i n the results section. SERUM CREATININE Routine 10/07/2020 3:37 Results for this PM CDT procedure are i n the results section. ELECTROLYTE PANEL Routine 10/07/2020 3:37 Result s for this PM CDT procedure are i n the results section. BLOOD UREA NITROGEN Routine 10/07/2020 3:37 Resu lts for this PM CDT procedure are i n the results section. GLUCOSE LEVEL Routine 10/07/2020 3:37 Results fo r this PM CDT procedure are i n the results section. CALCIUM IONIZED, VENOUS Routine 10/07/2020 3:37 Results for this PM CDT procedure are i n the results section. ARTERIAL BLOOD GAS Routine 10/07/2020 3:37 Resul ts for this PM CDT procedure are i n the results section. MAGNESIUM LEVEL Routine 10/07/2020 3:37 Results for this PM CDT procedure are i n the results section. PHOSPHORUS LEVEL Routine 10/07/2020 3:37 Results for this PM CDT procedure are i n the results section. CALCIUM LEVEL TOTAL Routine 10/07/2020 3:37 Resu lts for this PM CDT procedure are i n the results section. BASIC METABOLIC PANEL, Routine 10/07/2020 3:37 CALCIUM IONIZED PM CDT LACTIC ACID, VENOUS Routine 10/07/2020 3:37 Resu lts for this PM CDT procedure are i n the results section. POC GLUCOSE SCREEN Routine 10/07/2020 3:24 Resul ts for this PM CDT procedure are i n the results section. POC GLUCOSE SCREEN Routine 10/07/2020 2:40 Resul ts for this PM CDT procedure are i n the results section. POC GLUCOSE SCREEN Routine 10/07/2020 1:34 Resul ts for this PM CDT procedure are i n the results section. POC GLUCOSE SCREEN Routine 10/07/2020 11:24 Resul ts for this AM CDT procedure are i n the results section. OSCILLATORY PEP Routine 10/07/2020 10:47 AM CDT OSCILLATORY PEP Routine 10/07/2020 10:47 AM CDT POC GLUCOSE SCREEN Routine 10/07/2020 9:23 Resul ts for this AM CDT procedure are i n the results section. .GLOMERULAR FILTRATION Routine 10/07/2020 8:35 R esults for this RATE AM CDT procedure are i n the results section. SERUM CREATININE Routine 10/07/2020 8:35 Results for this AM CDT procedure are i n the results section. ELECTROLYTE PANEL Routine 10/07/2020 8:35 Result s for this AM CDT procedure are i n the results section. BLOOD UREA NITROGEN Routine 10/07/2020 8:35 Resu lts for this AM CDT procedure are i n the results section. GLUCOSE LEVEL Routine 10/07/2020 8:35 Results fo r this AM CDT procedure are i n the results section. CALCIUM IONIZED, VENOUS Routine 10/07/2020 8:35 Results for this AM CDT procedure are i n the results section. ARTERIAL BLOOD GAS Routine 10/07/2020 8:35 Resul ts for this AM CDT procedure are i n the results section. MAGNESIUM LEVEL Routine 10/07/2020 8:35 Results for this AM CDT procedure are i n the results section. PHOSPHORUS LEVEL Routine 10/07/2020 8:35 Results for this AM CDT procedure are i n the results section. CALCIUM LEVEL TOTAL Routine 10/07/2020 8:35 Resu lts for this AM CDT procedure are i n the results section. BASIC METABOLIC PANEL, Routine 10/07/2020 8:35 CALCIUM IONIZED AM CDT LACTIC ACID, VENOUS Routine 10/07/2020 8:35 Resu lts for this AM CDT procedure are i n the results section. POC GLUCOSE SCREEN Routine 10/07/2020 7:18 Resul ts for this AM CDT procedure are i n the results section. XR CHEST 1 VW PORTABLE Routine 10/07/2020 5:53 R esults for this AM CDT procedure are i n the results section. POC GLUCOSE SCREEN Routine 10/07/2020 5:41 Resul ts for this AM CDT procedure are i n the results section. POC GLUCOSE SCREEN Routine 10/07/2020 4:23 Resul ts for this AM CDT procedure are i n the results section. POC GLUCOSE SCREEN Routine 10/07/2020 3:41 Resul ts for this AM CDT procedure are i n the results section. POC GLUCOSE SCREEN Routine 10/07/2020 2:21 Resul ts for this AM CDT procedure are i n the results section. FRACTIONATED BILIRUBIN AM 10/07/2020 12:53 R esults for this AM CDT procedure are i n the results section. TOTAL PROTEIN AM 10/07/2020 12:53 Results fo r this AM CDT procedure are i n the results section. ASPARTATE AM 10/07/2020 12:53 Results for this AMINOTRANSFERASE AM CDT procedure a re in the results section. ALANINE AM 10/07/2020 12:53 Results for this AMINOTRANSFERASE AM CDT procedure a re in the results section. ALKALINE PHOSPHATASE AM 10/07/2020 12:53 Res ults for this AM CDT procedure are i n the results section. ALBUMIN LEVEL AM 10/07/2020 12:53 Results fo r this AM CDT procedure are i n the results section. .GLOMERULAR FILTRATION Routine 10/07/2020 12:53 R esults for this RATE AM CDT procedure are i n the results section. SERUM CREATININE Routine 10/07/2020 12:53 Results for this AM CDT procedure are i n the results section. ELECTROLYTE PANEL Routine 10/07/2020 12:53 Result s for this AM CDT procedure are i n the results section. BLOOD UREA NITROGEN Routine 10/07/2020 12:53 Resu lts for this AM CDT procedure are i n the results section. GLUCOSE LEVEL Routine 10/07/2020 12:53 Results fo r this AM CDT procedure are i n the results section. CALCIUM IONIZED, VENOUS Routine 10/07/2020 12:53 Results for this AM CDT procedure are i n the results section. COMPLETE BLOOD COUNT W/ AM 10/07/2020 12:53 Results for this INDICES AM CDT procedure are i n the results section. HEPATIC FUNCTION PANEL AM 10/07/2020 12:53 AM CDT APTT AM 10/07/2020 12:53 Results for this AM CDT procedure are i n the results section. PROTHROMBIN TIME AM 10/07/2020 12:53 Results for this AM CDT procedure are i n the results section. ARTERIAL BLOOD GAS Routine 10/07/2020 12:53 Resul ts for this AM CDT procedure are i n the results section. MAGNESIUM LEVEL Routine 10/07/2020 12:53 Results for this AM CDT procedure are i n the results section. PHOSPHORUS LEVEL Routine 10/07/2020 12:53 Results for this AM CDT procedure are i n the results section. CALCIUM LEVEL TOTAL Routine 10/07/2020 12:53 Resu lts for this AM CDT procedure are i n the results section. BASIC METABOLIC PANEL, Routine 10/07/2020 12:53 CALCIUM IONIZED AM CDT LACTIC ACID, VENOUS Routine 10/07/2020 12:53 Resu lts for this AM CDT procedure are i n the results section. POC GLUCOSE SCREEN Routine 10/06/2020 11:56 Resul ts for this PM CDT procedure are i n the results section. POC GLUCOSE SCREEN Routine 10/06/2020 10:04 Resul ts for this PM CDT procedure are i n the results section. POC GLUCOSE SCREEN Routine 10/06/2020 9:05 Resul ts for this PM CDT procedure are i n the results section. POC GLUCOSE SCREEN Routine 10/06/2020 7:58 Resul ts for this PM CDT procedure are i n the results section. POC GLUCOSE SCREEN Routine 10/06/2020 5:56 Resul ts for this PM CDT procedure are i n the results section. .GLOMERULAR FILTRATION Routine 10/06/2020 4:52 R esults for this RATE PM CDT procedure are i n the results section. SERUM CREATININE Routine 10/06/2020 4:52 Results for this PM CDT procedure are i n the results section. ELECTROLYTE PANEL Routine 10/06/2020 4:52 Result s for this PM CDT procedure are i n the results section. BLOOD UREA NITROGEN Routine 10/06/2020 4:52 Resu lts for this PM CDT procedure are i n the results section. GLUCOSE LEVEL Routine 10/06/2020 4:52 Results fo r this PM CDT procedure are i n the results section. CALCIUM IONIZED, VENOUS Routine 10/06/2020 4:52 Results for this PM CDT procedure are i n the results section. ARTERIAL BLOOD GAS Routine 10/06/2020 4:52 Resul ts for this PM CDT procedure are i n the results section. MAGNESIUM LEVEL Routine 10/06/2020 4:52 Results for this PM CDT procedure are i n the results section. PHOSPHORUS LEVEL Routine 10/06/2020 4:52 Results for this PM CDT procedure are i n the results section. CALCIUM LEVEL TOTAL Routine 10/06/2020 4:52 Resu lts for this PM CDT procedure are i n the results section. BASIC METABOLIC PANEL, Routine 10/06/2020 4:52 CALCIUM IONIZED PM CDT LACTIC ACID, VENOUS Routine 10/06/2020 4:52 Resu lts for this PM CDT procedure are i n the results section. POC GLUCOSE SCREEN Routine 10/06/2020 4:00 Resul ts for this PM CDT procedure are i n the results section. POC GLUCOSE SCREEN Routine 10/06/2020 2:58 Resul ts for this PM CDT procedure are i n the results section. POC GLUCOSE SCREEN Routine 10/06/2020 2:21 Resul ts for this PM CDT procedure are i n the results section. POC GLUCOSE SCREEN Routine 10/06/2020 12:40 Resul ts for this PM CDT procedure are i n the results section. POC GLUCOSE SCREEN Routine 10/06/2020 11:14 Resul ts for this AM CDT procedure are i n the results section. COVID-19 (SARS-COV-2) Now 10/06/2020 10:33 Re sults for this PCR-ASYMPTOMATIC MC AM CDT procedur e are in the results section. POC GLUCOSE SCREEN Routine 10/06/2020 9:33 Resul ts for this AM CDT procedure are i n the results section. .GLOMERULAR FILTRATION Routine 10/06/2020 8:46 R esults for this RATE AM CDT procedure are i n the results section. SERUM CREATININE Routine 10/06/2020 8:46 Results for this AM CDT procedure are i n the results section. ELECTROLYTE PANEL Routine 10/06/2020 8:46 Result s for this AM CDT procedure are i n the results section. BLOOD UREA NITROGEN Routine 10/06/2020 8:46 Resu lts for this AM CDT procedure are i n the results section. GLUCOSE LEVEL Routine 10/06/2020 8:46 Results fo r this AM CDT procedure are i n the results section. CALCIUM IONIZED, VENOUS Routine 10/06/2020 8:46 Results for this AM CDT procedure are i n the results section. ARTERIAL BLOOD GAS Routine 10/06/2020 8:46 Resul ts for this AM CDT procedure are i n the results section. MAGNESIUM LEVEL Routine 10/06/2020 8:46 Results for this AM CDT procedure are i n the results section. PHOSPHORUS LEVEL Routine 10/06/2020 8:46 Results for this AM CDT procedure are i n the results section. CALCIUM LEVEL TOTAL Routine 10/06/2020 8:46 Resu lts for this AM CDT procedure are i n the results section. BASIC METABOLIC PANEL, Routine 10/06/2020 8:46 CALCIUM IONIZED AM CDT LACTIC ACID, VENOUS Routine 10/06/2020 8:46 Resu lts for this AM CDT procedure are i n the results section. TRANSFUSE RED BLOOD Routine 10/06/2020 7:40 CELLS AM CDT POC GLUCOSE SCREEN Routine 10/06/2020 7:31 Resul ts for this AM CDT procedure are i n the results section. POC GLUCOSE SCREEN Routine 10/06/2020 5:28 Resul ts for this AM CDT procedure are i n the results section. POC GLUCOSE SCREEN Routine 10/06/2020 3:35 Resul ts for this AM CDT procedure are i n the results section. XR CHEST 1 VW PORTABLE Routine 10/06/2020 3:17 R esults for this AM CDT procedure are i n the results section. PRBC PRODUCT READY FOR Routine 10/06/2020 3:12 R esults for this ACCESS CONSULTANT AM CDT procedure are i n the results section. PREPARE RBC Routine 10/06/2020 3:12 Results for this AM CDT procedure are i n the results section. POC GLUCOSE SCREEN Routine 10/06/2020 1:34 Resul ts for this AM CDT procedure are i n the results section. FRACTIONATED BILIRUBIN AM 10/06/2020 1:05 R esults for this AM CDT procedure are i n the results section. TOTAL PROTEIN AM 10/06/2020 1:05 Results fo r this AM CDT procedure are i n the results section. ASPARTATE AM 10/06/2020 1:05 Results for this AMINOTRANSFERASE AM CDT procedure a re in the results section. ALANINE AM 10/06/2020 1:05 Results for this AMINOTRANSFERASE AM CDT procedure a re in the results section. ALKALINE PHOSPHATASE AM 10/06/2020 1:05 Res ults for this AM CDT procedure are i n the results section. ALBUMIN LEVEL AM 10/06/2020 1:05 Results fo r this AM CDT procedure are i n the results section. .GLOMERULAR FILTRATION Routine 10/06/2020 1:05 R esults for this RATE AM CDT procedure are i n the results section. SERUM CREATININE Routine 10/06/2020 1:05 Results for this AM CDT procedure are i n the results section. ELECTROLYTE PANEL Routine 10/06/2020 1:05 Result s for this AM CDT procedure are i n the results section. BLOOD UREA NITROGEN Routine 10/06/2020 1:05 Resu lts for this AM CDT procedure are i n the results section. GLUCOSE LEVEL Routine 10/06/2020 1:05 Results fo r this AM CDT procedure are i n the results section. CALCIUM IONIZED, VENOUS Routine 10/06/2020 1:05 Results for this AM CDT procedure are i n the results section. COMPLETE BLOOD COUNT W/ AM 10/06/2020 1:05 Results for this INDICES AM CDT procedure are i n the results section. HEPATIC FUNCTION PANEL AM 10/06/2020 1:05 AM CDT APTT AM 10/06/2020 1:05 Results for this AM CDT procedure are i n the results section. PROTHROMBIN TIME AM 10/06/2020 1:05 Results for this AM CDT procedure are i n the results section. ARTERIAL BLOOD GAS Routine 10/06/2020 1:05 Resul ts for this AM CDT procedure are i n the results section. MAGNESIUM LEVEL Routine 10/06/2020 1:05 Results for this AM CDT procedure are i n the results section. PHOSPHORUS LEVEL Routine 10/06/2020 1:05 Results for this AM CDT procedure are i n the results section. CALCIUM LEVEL TOTAL Routine 10/06/2020 1:05 Resu lts for this AM CDT procedure are i n the results section. BASIC METABOLIC PANEL, Routine 10/06/2020 1:05 CALCIUM IONIZED AM CDT LACTIC ACID, VENOUS Routine 10/06/2020 1:05 Resu lts for this AM CDT procedure are i n the results section. POC GLUCOSE SCREEN Routine 10/05/2020 11:40 Resul ts for this PM CDT procedure are i n the results section. POC GLUCOSE SCREEN Routine 10/05/2020 10:36 Resul ts for this PM CDT procedure are i n the results section. POC GLUCOSE SCREEN Routine 10/05/2020 9:23 Resul ts for this PM CDT procedure are i n the results section. POC GLUCOSE SCREEN Routine 10/05/2020 8:31 Resul ts for this PM CDT procedure are i n the results section. POC GLUCOSE SCREEN Routine 10/05/2020 7:09 Resul ts for this PM CDT procedure are i n the results section. POC GLUCOSE SCREEN Routine 10/05/2020 6:21 Resul ts for this PM CDT procedure are i n the results section. POC GLUCOSE SCREEN Routine 10/05/2020 5:15 Resul ts for this PM CDT procedure are i n the results section. .GLOMERULAR FILTRATION Routine 10/05/2020 4:09 R esults for this RATE PM CDT procedure are i n the results section. SERUM CREATININE Routine 10/05/2020 4:09 Results for this PM CDT procedure are i n the results section. ELECTROLYTE PANEL Routine 10/05/2020 4:09 Result s for this PM CDT procedure are i n the results section. BLOOD UREA NITROGEN Routine 10/05/2020 4:09 Resu lts for this PM CDT procedure are i n the results section. GLUCOSE LEVEL Routine 10/05/2020 4:09 Results fo r this PM CDT procedure are i n the results section. CALCIUM IONIZED, VENOUS Routine 10/05/2020 4:09 Results for this PM CDT procedure are i n the results section. ARTERIAL BLOOD GAS Routine 10/05/2020 4:09 Resul ts for this PM CDT procedure are i n the results section. MAGNESIUM LEVEL Routine 10/05/2020 4:09 Results for this PM CDT procedure are i n the results section. PHOSPHORUS LEVEL Routine 10/05/2020 4:09 Results for this PM CDT procedure are i n the results section. CALCIUM LEVEL TOTAL Routine 10/05/2020 4:09 Resu lts for this PM CDT procedure are i n the results section. BASIC METABOLIC PANEL, Routine 10/05/2020 4:09 CALCIUM IONIZED PM CDT LACTIC ACID, VENOUS Routine 10/05/2020 4:09 Resu lts for this PM CDT procedure are i n the results section. POC GLUCOSE SCREEN Routine 10/05/2020 3:28 Resul ts for this PM CDT procedure are i n the results section. POC GLUCOSE SCREEN Routine 10/05/2020 2:20 Resul ts for this PM CDT procedure are i n the results section. POC GLUCOSE SCREEN Routine 10/05/2020 1:05 Resul ts for this PM CDT procedure are i n the results section. POC GLUCOSE SCREEN Routine 10/05/2020 11:37 Resul ts for this AM CDT procedure are i n the results section. .GLOMERULAR FILTRATION Routine 10/05/2020 8:48 R esults for this RATE AM CDT procedure are i n the results section. SERUM CREATININE Routine 10/05/2020 8:48 Results for this AM CDT procedure are i n the results section. ELECTROLYTE PANEL Routine 10/05/2020 8:48 Result s for this AM CDT procedure are i n the results section. BLOOD UREA NITROGEN Routine 10/05/2020 8:48 Resu lts for this AM CDT procedure are i n the results section. GLUCOSE LEVEL Routine 10/05/2020 8:48 Results fo r this AM CDT procedure are i n the results section. CALCIUM IONIZED, VENOUS Routine 10/05/2020 8:48 Results for this AM CDT procedure are i n the results section. ARTERIAL BLOOD GAS Routine 10/05/2020 8:48 Resul ts for this AM CDT procedure are i n the results section. MAGNESIUM LEVEL Routine 10/05/2020 8:48 Results for this AM CDT procedure are i n the results section. PHOSPHORUS LEVEL Routine 10/05/2020 8:48 Results for this AM CDT procedure are i n the results section. CALCIUM LEVEL TOTAL Routine 10/05/2020 8:48 Resu lts for this AM CDT procedure are i n the results section. BASIC METABOLIC PANEL, Routine 10/05/2020 8:48 CALCIUM IONIZED AM CDT LACTIC ACID, VENOUS Routine 10/05/2020 8:48 Resu lts for this AM CDT procedure are i n the results section. POC GLUCOSE SCREEN Routine 10/05/2020 5:58 Resul ts for this AM CDT procedure are i n the results section. CALCIUM IONIZED, VENOUS STAT 10/05/2020 4:55 Results for this AM CDT procedure are i n the results section. .GLOMERULAR FILTRATION STAT 10/05/2020 4:55 R esults for this RATE AM CDT procedure are i n the results section. SERUM CREATININE STAT 10/05/2020 4:55 Results for this AM CDT procedure are i n the results section. ELECTROLYTE PANEL STAT 10/05/2020 4:55 Result s for this AM CDT procedure are i n the results section. BLOOD UREA NITROGEN STAT 10/05/2020 4:55 Resu lts for this AM CDT procedure are i n the results section. GLUCOSE LEVEL STAT 10/05/2020 4:55 Results fo r this AM CDT procedure are i n the results section. PHOSPHORUS LEVEL STAT 10/05/2020 4:55 Results for this AM CDT procedure are i n the results section. MAGNESIUM LEVEL STAT 10/05/2020 4:55 Results for this AM CDT procedure are i n the results section. BASIC METABOLIC PANEL, STAT 10/05/2020 4:55 CALCIUM IONIZED AM CDT XR CHEST 1 VW PORTABLE Routine 10/05/2020 3:47 R esults for this AM CDT procedure are i n the results section. TMP CROSSMATCH Routine 10/05/2020 3:40 Results f or this INTERPRETATION AM CDT procedure are in the results section. TMP INTERPRETATION Routine 10/05/2020 3:40 Resul ts for this ANTIBODY SCREEN AM CDT procedure ar e in NEGATIVE the results section. CLOT EXPIRATION DATE Routine 10/05/2020 3:40 Res ults for this AM CDT procedure are i n the results section. ANTIBODY SCREEN Routine 10/05/2020 3:40 Results for this AM CDT procedure are i n the results section. ABORH Routine 10/05/2020 3:40 Results for this AM CDT procedure are i n the results section. TYPE AND SCREEN Routine 10/05/2020 3:40 AM CDT FRACTIONATED BILIRUBIN AM 10/05/2020 1:43 R esults for this AM CDT procedure are i n the results section. TOTAL PROTEIN AM 10/05/2020 1:43 Results fo r this AM CDT procedure are i n the results section. ASPARTATE AM 10/05/2020 1:43 Results for this AMINOTRANSFERASE AM CDT procedure a re in the results section. ALANINE AM 10/05/2020 1:43 Results for this AMINOTRANSFERASE AM CDT procedure a re in the results section. ALKALINE PHOSPHATASE AM 10/05/2020 1:43 Res ults for this AM CDT procedure are i n the results section. ALBUMIN LEVEL AM 10/05/2020 1:43 Results fo r this AM CDT procedure are i n the results section. COMPLETE BLOOD COUNT W/ AM 10/05/2020 1:43 Results for this INDICES AM CDT procedure are i n the results section. HEPATIC FUNCTION PANEL AM 10/05/2020 1:43 AM CDT APTT AM 10/05/2020 1:43 Results for this AM CDT procedure are i n the results section. PROTHROMBIN TIME AM 10/05/2020 1:43 Results for this AM CDT procedure are i n the results section. ARTERIAL BLOOD GAS Routine 10/05/2020 1:43 Resul ts for this AM CDT procedure are i n the results section. MAGNESIUM LEVEL Routine 10/05/2020 1:43 Results for this AM CDT procedure are i n the results section. LACTIC ACID, VENOUS Routine 10/05/2020 1:43 Resu lts for this AM CDT procedure are i n the results section. POC GLUCOSE SCREEN Routine 10/04/2020 11:22 Resul ts for this PM CDT procedure are i n the results section. POC GLUCOSE SCREEN Routine 10/04/2020 5:35 Resul ts for this PM CDT procedure are i n the results section. TRANSFUSE PLATELETS Routine 10/04/2020 5:15 PM CDT TMP EXCEPTION Routine 10/04/2020 4:45 Results fo r this PM CDT procedure are i n the results section. MAGNESIUM LEVEL STAT 10/04/2020 4:24 Results for this PM CDT procedure are i n the results section. CALCIUM IONIZED, VENOUS STAT 10/04/2020 4:24 Results for this PM CDT procedure are i n the results section. .GLOMERULAR FILTRATION STAT 10/04/2020 4:24 R esults for this RATE PM CDT procedure are i n the results section. SERUM CREATININE STAT 10/04/2020 4:24 Results for this PM CDT procedure are i n the results section. ELECTROLYTE PANEL STAT 10/04/2020 4:24 Result s for this PM CDT procedure are i n the results section. BLOOD UREA NITROGEN STAT 10/04/2020 4:24 Resu lts for this PM CDT procedure are i n the results section. GLUCOSE LEVEL STAT 10/04/2020 4:24 Results fo r this PM CDT procedure are i n the results section. PHOSPHORUS LEVEL STAT 10/04/2020 4:24 Results for this PM CDT procedure are i n the results section. BASIC METABOLIC PANEL, STAT 10/04/2020 4:24 CALCIUM IONIZED PM CDT ARTERIAL BLOOD GAS Routine 10/04/2020 4:24 Resul ts for this PM CDT procedure are i n the results section. LACTIC ACID, VENOUS Routine 10/04/2020 4:24 Resu lts for this PM CDT procedure are i n the results section. PLT PRODUCT READY FOR Routine 10/04/2020 2:15 Re sults for this ACCESS CONSULTANT PM CDT procedure are i n the results section. PREPARE PLATELETS Routine 10/04/2020 2:15 Result s for this PM CDT procedure are i n the results section. MANUAL DIFFERENTIAL STAT 10/04/2020 12:40 Resu lts for this PM CDT procedure are i n the results section. Results CBC STAT 10/04/2020 12:40 Results for this PM CDT procedure are i n the results section. FIBRINOGEN ACTIVITY STAT 10/04/2020 12:40 Resu lts for this PM CDT procedure are i n the results section. COMPLETE BLOOD COUNT W/ STAT 10/04/2020 12:40 DIFFERENTIAL PM CDT BLOODCULTURE Now 10/04/2020 12:06 Results for this PM CDT procedure are i n the results section. BLOODCULTURE Now 10/04/2020 12:06 Results for this PM CDT procedure are i n the results section. POC GLUCOSE SCREEN Routine 10/04/2020 11:36 Resul ts for this AM CDT procedure are i n the results section. .GLOMERULAR FILTRATION Routine 10/04/2020 8:38 R esults for this RATE AM CDT procedure are i n the results section. SERUM CREATININE Routine 10/04/2020 8:38 Results for this AM CDT procedure are i n the results section. ELECTROLYTE PANEL Routine 10/04/2020 8:38 Result s for this AM CDT procedure are i n the results section. BLOOD UREA NITROGEN Routine 10/04/2020 8:38 Resu lts for this AM CDT procedure are i n the results section. GLUCOSE LEVEL Routine 10/04/2020 8:38 Results fo r this AM CDT procedure are i n the results section. CALCIUM IONIZED, VENOUS Routine 10/04/2020 8:38 Results for this AM CDT procedure are i n the results section. ARTERIAL BLOOD GAS Routine 10/04/2020 8:38 Resul ts for this AM CDT procedure are i n the results section. MAGNESIUM LEVEL Routine 10/04/2020 8:38 Results for this AM CDT procedure are i n the results section. PHOSPHORUS LEVEL Routine 10/04/2020 8:38 Results for this AM CDT procedure are i n the results section. CALCIUM LEVEL TOTAL Routine 10/04/2020 8:38 Resu lts for this AM CDT procedure are i n the results section. BASIC METABOLIC PANEL, Routine 10/04/2020 8:38 CALCIUM IONIZED AM CDT LACTIC ACID, VENOUS Routine 10/04/2020 8:38 Resu lts for this AM CDT procedure are i n the results section. POC GLUCOSE SCREEN Routine 10/04/2020 5:57 Resul ts for this AM CDT procedure are i n the results section. VRE CULTURE Routine 10/04/2020 3:33 Results for this AM CDT procedure are i n the results section. XR CHEST 1 VW PORTABLE Routine 10/04/2020 1:27 R esults for this AM CDT procedure are i n the results section. FRACTIONATED BILIRUBIN AM 10/04/2020 1:05 R esults for this AM CDT procedure are i n the results section. TOTAL PROTEIN AM 10/04/2020 1:05 Results fo r this AM CDT procedure are i n the results section. ASPARTATE AM 10/04/2020 1:05 Results for this AMINOTRANSFERASE AM CDT procedure a re in the results section. ALANINE AM 10/04/2020 1:05 Results for this AMINOTRANSFERASE AM CDT procedure a re in the results section. ALKALINE PHOSPHATASE AM 10/04/2020 1:05 Res ults for this AM CDT procedure are i n the results section. ALBUMIN LEVEL AM 10/04/2020 1:05 Results fo r this AM CDT procedure are i n the results section. .GLOMERULAR FILTRATION Routine 10/04/2020 1:05 R esults for this RATE AM CDT procedure are i n the results section. SERUM CREATININE Routine 10/04/2020 1:05 Results for this AM CDT procedure are i n the results section. ELECTROLYTE PANEL Routine 10/04/2020 1:05 Result s for this AM CDT procedure are i n the results section. BLOOD UREA NITROGEN Routine 10/04/2020 1:05 Resu lts for this AM CDT procedure are i n the results section. GLUCOSE LEVEL Routine 10/04/2020 1:05 Results fo r this AM CDT procedure are i n the results section. CALCIUM IONIZED, VENOUS Routine 10/04/2020 1:05 Results for this AM CDT procedure are i n the results section. COMPLETE BLOOD COUNT W/ AM 10/04/2020 1:05 Results for this INDICES AM CDT procedure are i n the results section. HEPATIC FUNCTION PANEL AM 10/04/2020 1:05 AM CDT APTT AM 10/04/2020 1:05 Results for this AM CDT procedure are i n the results section. PROTHROMBIN TIME AM 10/04/2020 1:05 Results for this AM CDT procedure are i n the results section. ARTERIAL BLOOD GAS Routine 10/04/2020 1:05 Resul ts for this AM CDT procedure are i n the results section. MAGNESIUM LEVEL Routine 10/04/2020 1:05 Results for this AM CDT procedure are i n the results section. PHOSPHORUS LEVEL Routine 10/04/2020 1:05 Results for this AM CDT procedure are i n the results section. CALCIUM LEVEL TOTAL Routine 10/04/2020 1:05 Resu lts for this AM CDT procedure are i n the results section. BASIC METABOLIC PANEL, Routine 10/04/2020 1:05 CALCIUM IONIZED AM CDT LACTIC ACID, VENOUS Routine 10/04/2020 1:05 Resu lts for this AM CDT procedure are i n the results section. MAGNESIUM LEVEL Routine 10/04/2020 1:05 Results for this AM CDT procedure are i n the results section. ARTERIAL BLOOD GAS Routine 10/04/2020 1:05 Resul ts for this AM CDT procedure are i n the results section. MAGNESIUM LEVEL Routine 10/04/2020 12:58 Results for this AM CDT procedure are i n the results section. POC GLUCOSE SCREEN Routine 10/03/2020 11:24 Resul ts for this PM CDT procedure are i n the results section. POC GLUCOSE SCREEN Routine 10/03/2020 5:23 Resul ts for this PM CDT procedure are i n the results section. HEPATITIS B SURFACE AG Routine 10/03/2020 4:07 R esults for this W/CONFIRM PM CDT procedure are i n the results section. .GLOMERULAR FILTRATION Routine 10/03/2020 4:07 R esults for this RATE PM CDT procedure are i n the results section. SERUM CREATININE Routine 10/03/2020 4:07 Results for this PM CDT procedure are i n the results section. ELECTROLYTE PANEL Routine 10/03/2020 4:07 Result s for this PM CDT procedure are i n the results section. BLOOD UREA NITROGEN Routine 10/03/2020 4:07 Resu lts for this PM CDT procedure are i n the results section. GLUCOSE LEVEL Routine 10/03/2020 4:07 Results fo r this PM CDT procedure are i n the results section. CALCIUM IONIZED, VENOUS Routine 10/03/2020 4:07 Results for this PM CDT procedure are i n the results section. HEPATITIS B SURFACE Routine 10/03/2020 4:07 Resu lts for this ANTIGEN, SERUM PM CDT procedure are in the results section. ARTERIAL BLOOD GAS Routine 10/03/2020 4:07 Resul ts for this PM CDT procedure are i n the results section. MAGNESIUM LEVEL Routine 10/03/2020 4:07 Results for this PM CDT procedure are i n the results section. PHOSPHORUS LEVEL Routine 10/03/2020 4:07 Results for this PM CDT procedure are i n the results section. CALCIUM LEVEL TOTAL Routine 10/03/2020 4:07 Resu lts for this PM CDT procedure are i n the results section. BASIC METABOLIC PANEL, Routine 10/03/2020 4:07 CALCIUM IONIZED PM CDT LACTIC ACID, VENOUS Routine 10/03/2020 4:07 Resu lts for this PM CDT procedure are i n the results section. POC GLUCOSE SCREEN Routine 10/03/2020 12:17 Resul ts for this PM CDT procedure are i n the results section. MAGNESIUM LEVEL Routine 10/03/2020 8:51 Results for this AM CDT procedure are i n the results section. .GLOMERULAR FILTRATION Routine 10/03/2020 8:51 R esults for this RATE AM CDT procedure are i n the results section. SERUM CREATININE Routine 10/03/2020 8:51 Results for this AM CDT procedure are i n the results section. ELECTROLYTE PANEL Routine 10/03/2020 8:51 Result s for this AM CDT procedure are i n the results section. BLOOD UREA NITROGEN Routine 10/03/2020 8:51 Resu lts for this AM CDT procedure are i n the results section. GLUCOSE LEVEL Routine 10/03/2020 8:51 Results fo r this AM CDT procedure are i n the results section. CALCIUM IONIZED, VENOUS Routine 10/03/2020 8:51 Results for this AM CDT procedure are i n the results section. ARTERIAL BLOOD GAS Routine 10/03/2020 8:51 Resul ts for this AM CDT procedure are i n the results section. PHOSPHORUS LEVEL Routine 10/03/2020 8:51 Results for this AM CDT procedure are i n the results section. CALCIUM LEVEL TOTAL Routine 10/03/2020 8:51 Resu lts for this AM CDT procedure are i n the results section. BASIC METABOLIC PANEL, Routine 10/03/2020 8:51 CALCIUM IONIZED AM CDT LACTIC ACID, VENOUS Routine 10/03/2020 8:51 Resu lts for this AM CDT procedure are i n the results section. POC GLUCOSE SCREEN Routine 10/03/2020 5:47 Resul ts for this AM CDT procedure are i n the results section. XR CHEST 1 VW PORTABLE Routine 10/03/2020 1:41 R esults for this AM CDT procedure are i n the results section. FRACTIONATED BILIRUBIN AM 10/03/2020 12:42 R esults for this AM CDT procedure are i n the results section. TOTAL PROTEIN AM 10/03/2020 12:42 Results fo r this AM CDT procedure are i n the results section. ASPARTATE AM 10/03/2020 12:42 Results for this AMINOTRANSFERASE AM CDT procedure a re in the results section. ALANINE AM 10/03/2020 12:42 Results for this AMINOTRANSFERASE AM CDT procedure a re in the results section. ALKALINE PHOSPHATASE AM 10/03/2020 12:42 Res ults for this AM CDT procedure are i n the results section. ALBUMIN LEVEL AM 10/03/2020 12:42 Results fo r this AM CDT procedure are i n the results section. .GLOMERULAR FILTRATION Routine 10/03/2020 12:42 R esults for this RATE AM CDT procedure are i n the results section. SERUM CREATININE Routine 10/03/2020 12:42 Results for this AM CDT procedure are i n the results section. ELECTROLYTE PANEL Routine 10/03/2020 12:42 Result s for this AM CDT procedure are i n the results section. BLOOD UREA NITROGEN Routine 10/03/2020 12:42 Resu lts for this AM CDT procedure are i n the results section. GLUCOSE LEVEL Routine 10/03/2020 12:42 Results fo r this AM CDT procedure are i n the results section. CALCIUM IONIZED, VENOUS Routine 10/03/2020 12:42 Results for this AM CDT procedure are i n the results section. COMPLETE BLOOD COUNT W/ AM 10/03/2020 12:42 Results for this INDICES AM CDT procedure are i n the results section. HEPATIC FUNCTION PANEL AM 10/03/2020 12:42 AM CDT MAGNESIUM LEVEL Routine 10/03/2020 12:42 Results for this AM CDT procedure are i n the results section. ARTERIAL BLOOD GAS Routine 10/03/2020 12:42 Resul ts for this AM CDT procedure are i n the results section. APTT AM 10/03/2020 12:42 Results for this AM CDT procedure are i n the results section. PROTHROMBIN TIME AM 10/03/2020 12:42 Results for this AM CDT procedure are i n the results section. PHOSPHORUS LEVEL Routine 10/03/2020 12:42 Results for this AM CDT procedure are i n the results section. CALCIUM LEVEL TOTAL Routine 10/03/2020 12:42 Resu lts for this AM CDT procedure are i n the results section. BASIC METABOLIC PANEL, Routine 10/03/2020 12:42 CALCIUM IONIZED AM CDT LACTIC ACID, VENOUS Routine 10/03/2020 12:42 Resu lts for this AM CDT procedure are i n the results section. POC GLUCOSE SCREEN Routine 10/02/2020 11:49 Resul ts for this PM CDT procedure are i n the results section. POC GLUCOSE SCREEN Routine 10/02/2020 5:26 Resul ts for this PM CDT procedure are i n the results section. .GLOMERULAR FILTRATION Routine 10/02/2020 4:29 R esults for this RATE PM CDT procedure are i n the results section. SERUM CREATININE Routine 10/02/2020 4:29 Results for this PM CDT procedure are i n the results section. ELECTROLYTE PANEL Routine 10/02/2020 4:29 Result s for this PM CDT procedure are i n the results section. BLOOD UREA NITROGEN Routine 10/02/2020 4:29 Resu lts for this PM CDT procedure are i n the results section. GLUCOSE LEVEL Routine 10/02/2020 4:29 Results fo r this PM CDT procedure are i n the results section. CALCIUM IONIZED, VENOUS Routine 10/02/2020 4:29 Results for this PM CDT procedure are i n the results section. MAGNESIUM LEVEL Routine 10/02/2020 4:29 Results for this PM CDT procedure are i n the results section. ARTERIAL BLOOD GAS Routine 10/02/2020 4:29 Resul ts for this PM CDT procedure are i n the results section. PHOSPHORUS LEVEL Routine 10/02/2020 4:29 Results for this PM CDT procedure are i n the results section. CALCIUM LEVEL TOTAL Routine 10/02/2020 4:29 Resu lts for this PM CDT procedure are i n the results section. BASIC METABOLIC PANEL, Routine 10/02/2020 4:29 CALCIUM IONIZED PM CDT LACTIC ACID, VENOUS Routine 10/02/2020 4:29 Resu lts for this PM CDT procedure are i n the results section. POC GLUCOSE SCREEN Routine 10/02/2020 11:42 Resul ts for this AM CDT procedure are i n the results section. MAGNESIUM LEVEL Routine 10/02/2020 10:36 Results for this AM CDT procedure are i n the results section. ARTERIAL BLOOD GAS Routine 10/02/2020 10:36 Resul ts for this AM CDT procedure are i n the results section. TMP INTERPRETATION Routine 10/02/2020 7:59 Resul ts for this ANTIBODY SCREEN AM CDT procedure ar e in NEGATIVE the results section. CLOT EXPIRATION DATE Routine 10/02/2020 7:59 Res ults for this AM CDT procedure are i n the results section. .GLOMERULAR FILTRATION Routine 10/02/2020 7:59 R esults for this RATE AM CDT procedure are i n the results section. SERUM CREATININE Routine 10/02/2020 7:59 Results for this AM CDT procedure are i n the results section. ELECTROLYTE PANEL Routine 10/02/2020 7:59 Result s for this AM CDT procedure are i n the results section. BLOOD UREA NITROGEN Routine 10/02/2020 7:59 Resu lts for this AM CDT procedure are i n the results section. GLUCOSE LEVEL Routine 10/02/2020 7:59 Results fo r this AM CDT procedure are i n the results section. CALCIUM IONIZED, VENOUS Routine 10/02/2020 7:59 Results for this AM CDT procedure are i n the results section. ANTIBODY SCREEN Routine 10/02/2020 7:59 Results for this AM CDT procedure are i n the results section. ABORH Routine 10/02/2020 7:59 Results for this AM CDT procedure are i n the results section. PHOSPHORUS LEVEL Routine 10/02/2020 7:59 Results for this AM CDT procedure are i n the results section. CALCIUM LEVEL TOTAL Routine 10/02/2020 7:59 Resu lts for this AM CDT procedure are i n the results section. BASIC METABOLIC PANEL, Routine 10/02/2020 7:59 CALCIUM IONIZED AM CDT LACTIC ACID, VENOUS Routine 10/02/2020 7:59 Resu lts for this AM CDT procedure are i n the results section. TYPE AND SCREEN Routine 10/02/2020 7:59 AM CDT POC GLUCOSE SCREEN Routine 10/02/2020 5:41 Resul ts for this AM CDT procedure are i n the results section. XR CHEST 1 VW PORTABLE Routine 10/02/2020 2:42 R esults for this AM CDT procedure are i n the results section. GENERAL LABORATORY ADD STAT 10/02/2020 2:35 R esults for this ON TEST AM CDT procedure are i n the results section. GENERAL LABORATORY ADD STAT 10/02/2020 2:32 R esults for this ON TEST AM CDT procedure are i n the results section. FRACTIONATED BILIRUBIN AM 10/02/2020 12:56 R esults for this AM CDT procedure are i n the results section. TOTAL PROTEIN AM 10/02/2020 12:56 Results fo r this AM CDT procedure are i n the results section. ASPARTATE AM 10/02/2020 12:56 Results for this AMINOTRANSFERASE AM CDT procedure a re in the results section. ALANINE AM 10/02/2020 12:56 Results for this AMINOTRANSFERASE AM CDT procedure a re in the results section. ALKALINE PHOSPHATASE AM 10/02/2020 12:56 Res ults for this AM CDT procedure are i n the results section. ALBUMIN LEVEL AM 10/02/2020 12:56 Results fo r this AM CDT procedure are i n the results section. .GLOMERULAR FILTRATION Routine 10/02/2020 12:56 R esults for this RATE AM CDT procedure are i n the results section. SERUM CREATININE Routine 10/02/2020 12:56 Results for this AM CDT procedure are i n the results section. ELECTROLYTE PANEL Routine 10/02/2020 12:56 Result s for this AM CDT procedure are i n the results section. BLOOD UREA NITROGEN Routine 10/02/2020 12:56 Resu lts for this AM CDT procedure are i n the results section. GLUCOSE LEVEL Routine 10/02/2020 12:56 Results fo r this AM CDT procedure are i n the results section. CALCIUM IONIZED, VENOUS Routine 10/02/2020 12:56 Results for this AM CDT procedure are i n the results section. COMPLETE BLOOD COUNT W/ AM 10/02/2020 12:56 Results for this INDICES AM CDT procedure are i n the results section. HEPATIC FUNCTION PANEL AM 10/02/2020 12:56 AM CDT MAGNESIUM LEVEL Routine 10/02/2020 12:56 Results for this AM CDT procedure are i n the results section. ARTERIAL BLOOD GAS Routine 10/02/2020 12:56 Resul ts for this AM CDT procedure are i n the results section. APTT AM 10/02/2020 12:56 Results for this AM CDT procedure are i n the results section. PROTHROMBIN TIME AM 10/02/2020 12:56 Results for this AM CDT procedure are i n the results section. PHOSPHORUS LEVEL Routine 10/02/2020 12:56 Results for this AM CDT procedure are i n the results section. CALCIUM LEVEL TOTAL Routine 10/02/2020 12:56 Resu lts for this AM CDT procedure are i n the results section. BASIC METABOLIC PANEL, Routine 10/02/2020 12:56 CALCIUM IONIZED AM CDT LACTIC ACID, VENOUS Routine 10/02/2020 12:56 Resu lts for this AM CDT procedure are i n the results section. POC GLUCOSE SCREEN Routine 10/01/2020 11:42 Resul ts for this PM CDT procedure are i n the results section. POC GLUCOSE SCREEN Routine 10/01/2020 5:24 Resul ts for this PM CDT procedure are i n the results section. .GLOMERULAR FILTRATION Routine 10/01/2020 4:48 R esults for this RATE PM CDT procedure are i n the results section. SERUM CREATININE Routine 10/01/2020 4:48 Results for this PM CDT procedure are i n the results section. ELECTROLYTE PANEL Routine 10/01/2020 4:48 Result s for this PM CDT procedure are i n the results section. BLOOD UREA NITROGEN Routine 10/01/2020 4:48 Resu lts for this PM CDT procedure are i n the results section. GLUCOSE LEVEL Routine 10/01/2020 4:48 Results fo r this PM CDT procedure are i n the results section. CALCIUM IONIZED, VENOUS Routine 10/01/2020 4:48 Results for this PM CDT procedure are i n the results section. FREE THYROXINE Routine 10/01/2020 4:48 Results f or this PM CDT procedure are i n the results section. THYROID STIMULATING Routine 10/01/2020 4:48 Resu lts for this HORMONE PM CDT procedure are i n the results section. MAGNESIUM LEVEL Routine 10/01/2020 4:48 Results for this PM CDT procedure are i n the results section. ARTERIAL BLOOD GAS Routine 10/01/2020 4:48 Resul ts for this PM CDT procedure are i n the results section. PHOSPHORUS LEVEL Routine 10/01/2020 4:48 Results for this PM CDT procedure are i n the results section. CALCIUM LEVEL TOTAL Routine 10/01/2020 4:48 Resu lts for this PM CDT procedure are i n the results section. BASIC METABOLIC PANEL, Routine 10/01/2020 4:48 CALCIUM IONIZED PM CDT LACTIC ACID, VENOUS Routine 10/01/2020 4:48 Resu lts for this PM CDT procedure are i n the results section. XR ABDOMEN 1 VW STAT 10/01/2020 1:55 Results for this PORTABLE PM CDT procedure are i n the results section. POC GLUCOSE SCREEN Routine 10/01/2020 11:30 Resul ts for this AM CDT procedure are i n the results section. .GLOMERULAR FILTRATION Routine 10/01/2020 8:38 R esults for this RATE AM CDT procedure are i n the results section. SERUM CREATININE Routine 10/01/2020 8:38 Results for this AM CDT procedure are i n the results section. ELECTROLYTE PANEL Routine 10/01/2020 8:38 Result s for this AM CDT procedure are i n the results section. BLOOD UREA NITROGEN Routine 10/01/2020 8:38 Resu lts for this AM CDT procedure are i n the results section. GLUCOSE LEVEL Routine 10/01/2020 8:38 Results fo r this AM CDT procedure are i n the results section. CALCIUM IONIZED, VENOUS Routine 10/01/2020 8:38 Results for this AM CDT procedure are i n the results section. MAGNESIUM LEVEL Routine 10/01/2020 8:38 Results for this AM CDT procedure are i n the results section. ARTERIAL BLOOD GAS Routine 10/01/2020 8:38 Resul ts for this AM CDT procedure are i n the results section. PHOSPHORUS LEVEL Routine 10/01/2020 8:38 Results for this AM CDT procedure are i n the results section. CALCIUM LEVEL TOTAL Routine 10/01/2020 8:38 Resu lts for this AM CDT procedure are i n the results section. BASIC METABOLIC PANEL, Routine 10/01/2020 8:38 CALCIUM IONIZED AM CDT LACTIC ACID, VENOUS Routine 10/01/2020 8:38 Resu lts for this AM CDT procedure are i n the results section. POC GLUCOSE SCREEN Routine 10/01/2020 5:26 Resul ts for this AM CDT procedure are i n the results section. ARTERIAL BLOOD GAS Routine 10/01/2020 1:43 Resul ts for this AM CDT procedure are i n the results section. XR CHEST 1 VW PORTABLE Routine 10/01/2020 12:54 R esults for this AM CDT procedure are i n the results section. FRACTIONATED BILIRUBIN AM 10/01/2020 12:47 R esults for this AM CDT procedure are i n the results section. TOTAL PROTEIN AM 10/01/2020 12:47 Results fo r this AM CDT procedure are i n the results section. ASPARTATE AM 10/01/2020 12:47 Results for this AMINOTRANSFERASE AM CDT procedure a re in the results section. ALANINE AM 10/01/2020 12:47 Results for this AMINOTRANSFERASE AM CDT procedure a re in the results section. ALKALINE PHOSPHATASE AM 10/01/2020 12:47 Res ults for this AM CDT procedure are i n the results section. ALBUMIN LEVEL AM 10/01/2020 12:47 Results fo r this AM CDT procedure are i n the results section. .GLOMERULAR FILTRATION Routine 10/01/2020 12:47 R esults for this RATE AM CDT procedure are i n the results section. SERUM CREATININE Routine 10/01/2020 12:47 Results for this AM CDT procedure are i n the results section. ELECTROLYTE PANEL Routine 10/01/2020 12:47 Result s for this AM CDT procedure are i n the results section. BLOOD UREA NITROGEN Routine 10/01/2020 12:47 Resu lts for this AM CDT procedure are i n the results section. GLUCOSE LEVEL Routine 10/01/2020 12:47 Results fo r this AM CDT procedure are i n the results section. CALCIUM IONIZED, VENOUS Routine 10/01/2020 12:47 Results for this AM CDT procedure are i n the results section. HEPATIC FUNCTION PANEL AM 10/01/2020 12:47 AM CDT COMPLETE BLOOD COUNT W/ Routine 10/01/2020 12:47 Results for this INDICES AM CDT procedure are i n the results section. PHOSPHORUS LEVEL Routine 10/01/2020 12:47 Results for this AM CDT procedure are i n the results section. MAGNESIUM LEVEL Routine 10/01/2020 12:47 Results for this AM CDT procedure are i n the results section. BASIC METABOLIC PANEL, Routine 10/01/2020 12:47 CALCIUM IONIZED AM CDT APTT AM 10/01/2020 12:47 Results for this AM CDT procedure are i n the results section. PROTHROMBIN TIME AM 10/01/2020 12:47 Results for this AM CDT procedure are i n the results section. VENOUS BLOOD GAS Routine 10/01/2020 12:47 Results for this AM CDT procedure are i n the results section. ARTERIAL BLOOD GAS Routine 10/01/2020 12:47 Resul ts for this AM CDT procedure are i n the results section. MAGNESIUM LEVEL Routine 10/01/2020 12:47 Results for this AM CDT procedure are i n the results section. PHOSPHORUS LEVEL Routine 10/01/2020 12:47 Results for this AM CDT procedure are i n the results section. CALCIUM LEVEL TOTAL Routine 10/01/2020 12:47 Resu lts for this AM CDT procedure are i n the results section. LACTIC ACID, VENOUS Routine 10/01/2020 12:47 Resu lts for this AM CDT procedure are i n the results section. EKG, 12-LEAD (PORTABLE) STAT 10/01/2020 POC GLUCOSE SCREEN Routine 09/30/2020 11:13 Resul ts for this PM CDT procedure are i n the results section. POC GLUCOSE SCREEN Routine 09/30/2020 5:29 Resul ts for this PM CDT procedure are i n the results section. .GLOMERULAR FILTRATION Routine 09/30/2020 4:54 R esults for this RATE PM CDT procedure are i n the results section. SERUM CREATININE Routine 09/30/2020 4:54 Results for this PM CDT procedure are i n the results section. ELECTROLYTE PANEL Routine 09/30/2020 4:54 Result s for this PM CDT procedure are i n the results section. BLOOD UREA NITROGEN Routine 09/30/2020 4:54 Resu lts for this PM CDT procedure are i n the results section. GLUCOSE LEVEL Routine 09/30/2020 4:54 Results fo r this PM CDT procedure are i n the results section. CALCIUM IONIZED, VENOUS Routine 09/30/2020 4:54 Results for this PM CDT procedure are i n the results section. MAGNESIUM LEVEL Routine 09/30/2020 4:54 Results for this PM CDT procedure are i n the results section. PHOSPHORUS LEVEL Routine 09/30/2020 4:54 Results for this PM CDT procedure are i n the results section. CALCIUM LEVEL TOTAL Routine 09/30/2020 4:54 Resu lts for this PM CDT procedure are i n the results section. BASIC METABOLIC PANEL, Routine 09/30/2020 4:54 CALCIUM IONIZED PM CDT COMPLETE BLOOD COUNT W/ Routine 09/30/2020 4:54 Results for this INDICES PM CDT procedure are i n the results section. LACTIC ACID, VENOUS Routine 09/30/2020 4:54 Resu lts for this PM CDT procedure are i n the results section. ARTERIAL BLOOD GAS Routine 09/30/2020 4:54 Resul ts for this PM CDT procedure are i n the results section. TRANSFUSE FRESH FROZEN Routine 09/30/2020 4:30 PLASMA PM CDT PNEUMOCYSTIS JIROVECI Now 09/30/2020 4:25 Re sults for this QUANT, BAL PM CDT procedure are i n the results section. LOWER RESPIRATORY Now 09/30/2020 4:25 Result s for this CULTURE W/ GRAM STAIN PM CDT proced ure are in the results section. FUNGUS CULTURE Now 09/30/2020 4:25 Results f or this PM CDT procedure are i n the results section. AFB CULTURE W/ SMEAR Now 09/30/2020 4:25 Res ults for this PM CDT procedure are i n the results section. LEGIONELLA CULTURE Now 09/30/2020 4:25 Resul ts for this PM CDT procedure are i n the results section. CYTOLOGY NON-FINISH OFF OPERATOR Routine 09/30/2020 4:17 Acute respiratory Re sults for this INTERPRETATION PM CDT failure with procedure are in hypoxia the results section. XR CHEST 1 VW PORTABLE STAT 09/30/2020 3:30 R esults for this PM CDT procedure are i n the results section. HEPATITIS B SURFACE AG Routine 09/30/2020 1:36 R esults for this W/CONFIRM PM CDT procedure are i n the results section. LACTIC ACID, VENOUS STAT 09/30/2020 1:36 Resu lts for this PM CDT procedure are i n the results section. HEPATITIS B SURFACE Routine 09/30/2020 1:36 Resu lts for this ANTIGEN, SERUM PM CDT procedure are in the results section. NC CHG US GUIDE, Routine 09/30/2020 12:15 Acute injury of Resu lts for this VASCULAR ACCESS PM CDT kidney procedure ar e in the results section. NC INSERT NON-TUNNEL CV Routine 09/30/2020 12:15 Acute injury of Results for this CATH PM CDT kidney procedure are i n the results section. HC U/S GUID FOR VASC Routine 09/30/2020 12:15 Acute respirator y Results for this ACCESS PM CDT failure with procedure are i n hypoxia the results Severe sepsis with section. septic shock NC INSERT Routine 09/30/2020 12:15 Acute respiratory Result s for this CATH,ART,CUTDOWN,HARRY PM CDT failure with proc edure are in ERM hypoxia the results Severe sepsis with section. septic shock ARTERIAL BLOOD GAS Routine 09/30/2020 12:12 Resul ts for this PM CDT procedure are i n the results section. POC GLUCOSE SCREEN Routine 09/30/2020 11:50 Resul ts for this AM CDT procedure are i n the results section. TRANSFUSE FRESH FROZEN Routine 09/30/2020 11:42 PLASMA AM CDT CALCIUM IONIZED, VENOUS Now 09/30/2020 10:48 Results for this AM CDT procedure are i n the results section. .GLOMERULAR FILTRATION Now 09/30/2020 10:48 R esults for this RATE AM CDT procedure are i n the results section. SERUM CREATININE Now 09/30/2020 10:48 Results for this AM CDT procedure are i n the results section. ELECTROLYTE PANEL Now 09/30/2020 10:48 Result s for this AM CDT procedure are i n the results section. BLOOD UREA NITROGEN Now 09/30/2020 10:48 Resu lts for this AM CDT procedure are i n the results section. GLUCOSE LEVEL Now 09/30/2020 10:48 Results fo r this AM CDT procedure are i n the results section. COMPLETE BLOOD COUNT W/ Routine 09/30/2020 10:48 Results for this INDICES AM CDT procedure are i n the results section. PHOSPHORUS LEVEL Routine 09/30/2020 10:48 Results for this AM CDT procedure are i n the results section. MAGNESIUM LEVEL Routine 09/30/2020 10:48 Results for this AM CDT procedure are i n the results section. BASIC METABOLIC PANEL, Now 09/30/2020 10:48 CALCIUM IONIZED AM CDT XR CHEST 1 VW STAT 09/30/2020 9:42 Results fo r this AM CDT procedure are i n the results section. FFP PRODUCT READY FOR Routine 09/30/2020 6:20 Re sults for this ACCESS CONSULTANT AM CDT procedure are i n the results section. PREPARE FRESH FROZEN Routine 09/30/2020 6:20 Res ults for this PLASMA AM CDT procedure are i n the results section. POC GLUCOSE SCREEN Routine 09/30/2020 6:18 Resul ts for this AM CDT procedure are i n the results section. GENERAL LABORATORY ADD Now 09/30/2020 6:11 R esults for this ON TEST AM CDT procedure are i n the results section. FRACTIONATED BILIRUBIN Routine 09/30/2020 2:54 R esults for this AM CDT procedure are i n the results section. TOTAL PROTEIN Routine 09/30/2020 2:54 Results fo r this AM CDT procedure are i n the results section. ASPARTATE Routine 09/30/2020 2:54 Results for this AMINOTRANSFERASE AM CDT procedure a re in the results section. ALANINE Routine 09/30/2020 2:54 Results for this AMINOTRANSFERASE AM CDT procedure a re in the results section. ALKALINE PHOSPHATASE Routine 09/30/2020 2:54 Res ults for this AM CDT procedure are i n the results section. ALBUMIN LEVEL Routine 09/30/2020 2:54 Results fo r this AM CDT procedure are i n the results section. CALCIUM IONIZED, VENOUS Routine 09/30/2020 2:54 Results for this AM CDT procedure are i n the results section. .GLOMERULAR FILTRATION Routine 09/30/2020 2:54 R esults for this RATE AM CDT procedure are i n the results section. SERUM CREATININE Routine 09/30/2020 2:54 Results for this AM CDT procedure are i n the results section. ELECTROLYTE PANEL Routine 09/30/2020 2:54 Result s for this AM CDT procedure are i n the results section. BLOOD UREA NITROGEN Routine 09/30/2020 2:54 Resu lts for this AM CDT procedure are i n the results section. GLUCOSE LEVEL Routine 09/30/2020 2:54 Results fo r this AM CDT procedure are i n the results section. MANUAL DIFFERENTIAL Routine 09/30/2020 2:54 Resu lts for this AM CDT procedure are i n the results section. Results CBC Routine 09/30/2020 2:54 Results for this AM CDT procedure are i n the results section. APTT AM 09/30/2020 2:54 Results for this AM CDT procedure are i n the results section. PROTHROMBIN TIME AM 09/30/2020 2:54 Results for this AM CDT procedure are i n the results section. VENOUS BLOOD GAS Routine 09/30/2020 2:54 Results for this AM CDT procedure are i n the results section. CARDIAC PANEL Timed Study 09/30/2020 2:54 Results fo r this AM CDT procedure are i n the results section. PHOSPHORUS LEVEL Routine 09/30/2020 2:54 Results for this AM CDT procedure are i n the results section. MAGNESIUM LEVEL Routine 09/30/2020 2:54 Results for this AM CDT procedure are i n the results section. BASIC METABOLIC PANEL, Routine 09/30/2020 2:54 CALCIUM IONIZED AM CDT COMPLETE BLOOD COUNT W/ Routine 09/30/2020 2:54 DIFFERENTIAL AM CDT XR CHEST 1 VW PORTABLE Routine 09/30/2020 1:08 R esults for this AM CDT procedure are i n the results section. POC GLUCOSE SCREEN Routine 09/29/2020 11:38 Resul ts for this PM CDT procedure are i n the results section. POC GLUCOSE SCREEN Routine 09/29/2020 5:06 Resul ts for this PM CDT procedure are i n the results section. CALCIUM IONIZED, VENOUS STAT 09/29/2020 3:28 Results for this PM CDT procedure are i n the results section. .GLOMERULAR FILTRATION STAT 09/29/2020 3:28 R esults for this RATE PM CDT procedure are i n the results section. SERUM CREATININE STAT 09/29/2020 3:28 Results for this PM CDT procedure are i n the results section. ELECTROLYTE PANEL STAT 09/29/2020 3:28 Result s for this PM CDT procedure are i n the results section. BLOOD UREA NITROGEN STAT 09/29/2020 3:28 Resu lts for this PM CDT procedure are i n the results section. GLUCOSE LEVEL STAT 09/29/2020 3:28 Results fo r this PM CDT procedure are i n the results section. PHOSPHORUS LEVEL STAT 09/29/2020 3:28 Results for this PM CDT procedure are i n the results section. MAGNESIUM LEVEL STAT 09/29/2020 3:28 Results for this PM CDT procedure are i n the results section. BASIC METABOLIC PANEL, STAT 09/29/2020 3:28 CALCIUM IONIZED PM CDT CARDIAC PANEL Timed Study 09/29/2020 3:28 Results fo r this PM CDT procedure are i n the results section. DIFFERENTIAL CANCEL STAT 09/29/2020 2:30 Resu lts for this PM CDT procedure are i n the results section. Results CBC STAT 09/29/2020 2:30 Results for this PM CDT procedure are i n the results section. CALCIUM IONIZED, VENOUS STAT 09/29/2020 2:30 Results for this PM CDT procedure are i n the results section. COMPLETE BLOOD COUNT W/ STAT 09/29/2020 2:30 DIFFERENTIAL PM CDT FIBRINOGEN ACTIVITY STAT 09/29/2020 2:30 Resu lts for this PM CDT procedure are i n the results section. DIFFERENTIAL CANCEL Routine 09/29/2020 12:13 Resu lts for this PM CDT procedure are i n the results section. .GLOMERULAR FILTRATION Routine 09/29/2020 12:13 R esults for this RATE PM CDT procedure are i n the results section. SERUM CREATININE Routine 09/29/2020 12:13 Results for this PM CDT procedure are i n the results section. ELECTROLYTE PANEL Routine 09/29/2020 12:13 Result s for this PM CDT procedure are i n the results section. BLOOD UREA NITROGEN Routine 09/29/2020 12:13 Resu lts for this PM CDT procedure are i n the results section. GLUCOSE LEVEL Routine 09/29/2020 12:13 Results fo r this PM CDT procedure are i n the results section. Results CBC Routine 09/29/2020 12:13 Results for this PM CDT procedure are i n the results section. CALCIUM IONIZED, VENOUS Routine 09/29/2020 12:13 Results for this PM CDT procedure are i n the results section. PHOSPHORUS LEVEL Routine 09/29/2020 12:13 Results for this PM CDT procedure are i n the results section. MAGNESIUM LEVEL Routine 09/29/2020 12:13 Results for this PM CDT procedure are i n the results section. BASIC METABOLIC PANEL, Routine 09/29/2020 12:13 CALCIUM IONIZED PM CDT COMPLETE BLOOD COUNT W/ Routine 09/29/2020 12:13 DIFFERENTIAL PM CDT VENOUS BLOOD GAS Routine 09/29/2020 12:13 Results for this PM CDT procedure are i n the results section. URINALYSIS MICROSCOPIC Routine 09/29/2020 11:51 R esults for this AM CDT procedure are i n the results section. URINALYSIS WITH STAT 09/29/2020 11:51 Results for this MICROSCOPIC IF AM CDT procedure are in INDICATED the results section. ECHOCARDIOGRAM 2D STAT 09/29/2020 11:24 Result s for this LIMITED - FOLLOW UP AM CDT procedur e are in the results section. POC GLUCOSE SCREEN Routine 09/29/2020 11:08 Resul ts for this AM CDT procedure are i n the results section. FRACTIONATED BILIRUBIN STAT 09/29/2020 8:18 R esults for this AM CDT procedure are i n the results section. TOTAL PROTEIN STAT 09/29/2020 8:18 Results fo r this AM CDT procedure are i n the results section. ASPARTATE STAT 09/29/2020 8:18 Results for this AMINOTRANSFERASE AM CDT procedure a re in the results section. ALANINE STAT 09/29/2020 8:18 Results for this AMINOTRANSFERASE AM CDT procedure a re in the results section. ALKALINE PHOSPHATASE STAT 09/29/2020 8:18 Res ults for this AM CDT procedure are i n the results section. ALBUMIN LEVEL STAT 09/29/2020 8:18 Results fo r this AM CDT procedure are i n the results section. .GLOMERULAR FILTRATION STAT 09/29/2020 8:18 R esults for this RATE AM CDT procedure are i n the results section. SERUM CREATININE STAT 09/29/2020 8:18 Results for this AM CDT procedure are i n the results section. ELECTROLYTE PANEL STAT 09/29/2020 8:18 Result s for this AM CDT procedure are i n the results section. BLOOD UREA NITROGEN STAT 09/29/2020 8:18 Resu lts for this AM CDT procedure are i n the results section. GLUCOSE LEVEL STAT 09/29/2020 8:18 Results fo r this AM CDT procedure are i n the results section. HEPATIC FUNCTION PANEL STAT 09/29/2020 8:18 AM CDT PHOSPHORUS LEVEL STAT 09/29/2020 8:18 Results for this AM CDT procedure are i n the results section. MAGNESIUM LEVEL STAT 09/29/2020 8:18 Results for this AM CDT procedure are i n the results section. CARDIAC PANEL Timed Study 09/29/2020 8:18 Results fo r this AM CDT procedure are i n the results section. BASIC METABOLIC PANEL, STAT 09/29/2020 8:18 CALCIUM IONIZED AM CDT TMP INTERPRETATION Routine 09/29/2020 8:10 Resul ts for this ANTIBODY SCREEN AM CDT procedure ar e in NEGATIVE the results section. CLOT EXPIRATION DATE Routine 09/29/2020 8:10 Res ults for this AM CDT procedure are i n the results section. ANTIBODY SCREEN Now 09/29/2020 8:10 Results for this AM CDT procedure are i n the results section. ABORH Now 09/29/2020 8:10 Results for this AM CDT procedure are i n the results section. TYPE AND SCREEN Now 09/29/2020 8:10 AM CDT BLOODCULTURE Now 09/29/2020 8:10 Results for this AM CDT procedure are i n the results section. RESPIRATORY VIRAL PANEL Now 09/29/2020 7:21 Results for this + COVID-19, AM CDT procedure are i n NASOPHARYNGEAL SWAB the resu lts section. BLOODCULTURE Now 09/29/2020 6:30 Results for this AM CDT procedure are i n the results section. ARTERIAL BLOOD GAS STAT 09/29/2020 6:26 Resul ts for this AM CDT procedure are i n the results section. XR CHEST 1 VW STAT 09/29/2020 6:21 Results fo r this AM CDT procedure are i n the results section. POC GLUCOSE SCREEN Routine 09/29/2020 6:15 Resul ts for this AM CDT procedure are i n the results section. VRE CULTURE Now 09/29/2020 6:07 Results for this AM CDT procedure are i n the results section. EKG, 12-LEAD (PORTABLE) STAT 09/29/2020 OSI CHEST Routine 09/28/2020 11:51 Cancer Results for this AM CDT procedure are i n the results section. POC GLUCOSE SCREEN Routine 09/23/2020 2:39 Resul ts for this PM CDT procedure are i n the results section. POC GLUCOSE SCREEN Routine 09/23/2020 9:58 Resul ts for this AM CDT procedure are i n the results section. TMP INTERPRETATION Routine 09/23/2020 5:22 Resul ts for this ANTIBODY SCREEN AM CDT procedure ar e in NEGATIVE the results section. CLOT EXPIRATION DATE Routine 09/23/2020 5:22 Res ults for this AM CDT procedure are i n the results section. ANION GAP AM 09/23/2020 5:22 Results for this AM CDT procedure are i n the results section. .GLOMERULAR FILTRATION AM 09/23/2020 5:22 R esults for this RATE AM CDT procedure are i n the results section. SERUM CREATININE AM 09/23/2020 5:22 Results for this AM CDT procedure are i n the results section. MANUAL DIFFERENTIAL AM 09/23/2020 5:22 Resu lts for this AM CDT procedure are i n the results section. Results CBC AM 09/23/2020 5:22 Results for this AM CDT procedure are i n the results section. ANTIBODY SCREEN Routine 09/23/2020 5:22 Results for this AM CDT procedure are i n the results section. ABORH Routine 09/23/2020 5:22 Results for this AM CDT procedure are i n the results section. TYPE AND SCREEN Routine 09/23/2020 5:22 AM CDT ALKALINE PHOSPHATASE AM 09/23/2020 5:22 Res ults for this AM CDT procedure are i n the results section. ASPARTATE AM 09/23/2020 5:22 Results for this AMINOTRANSFERASE AM CDT procedure a re in the results section. ALANINE AM 09/23/2020 5:22 Results for this AMINOTRANSFERASE AM CDT procedure a re in the results section. MAGNESIUM LEVEL AM 09/23/2020 5:22 Results for this AM CDT procedure are i n the results section. CALCIUM LEVEL TOTAL AM 09/23/2020 5:22 Resu lts for this AM CDT procedure are i n the results section. ALBUMIN LEVEL AM 09/23/2020 5:22 Results fo r this AM CDT procedure are i n the results section. FRACTIONATED BILIRUBIN AM 09/23/2020 5:22 R esults for this AM CDT procedure are i n the results section. PHOSPHORUS LEVEL AM 09/23/2020 5:22 Results for this AM CDT procedure are i n the results section. URIC ACID AM 09/23/2020 5:22 Results for this AM CDT procedure are i n the results section. LACTATE DEHYDROGENASE AM 09/23/2020 5:22 Re sults for this AM CDT procedure are i n the results section. GLUCOSE, RANDOM AM 09/23/2020 5:22 Results for this AM CDT procedure are i n the results section. SERUM CREATININE AM 09/23/2020 5:22 AM CDT BLOOD UREA NITROGEN AM 09/23/2020 5:22 Resu lts for this AM CDT procedure are i n the results section. CARBON DIOXIDE LEVEL AM 09/23/2020 5:22 Res ults for this AM CDT procedure are i n the results section. CHLORIDE LEVEL AM 09/23/2020 5:22 Results f or this AM CDT procedure are i n the results section. POTASSIUM LEVEL AM 09/23/2020 5:22 Results for this AM CDT procedure are i n the results section. SODIUM LEVEL AM 09/23/2020 5:22 Results for this AM CDT procedure are i n the results section. COMPLETE BLOOD COUNT W/ AM 09/23/2020 5:22 DIFFERENTIAL AM CDT URIC ACID RASBURICASE Routine 09/23/2020 5:22 Re sults for this TREATED AM CDT procedure are i n the results section. CALCIUM IONIZED, VENOUS Routine 09/23/2020 5:22 Results for this AM CDT procedure are i n the results section. POC GLUCOSE SCREEN Routine 09/22/2020 10:28 Resul ts for this PM CDT procedure are i n the results section. POC GLUCOSE SCREEN Routine 09/22/2020 5:57 Resul ts for this PM CDT procedure are i n the results section. POC GLUCOSE SCREEN Routine 09/22/2020 11:38 Resul ts for this AM CDT procedure are i n the results section. FL CHEMO INTO CORROSION CONTROL ENGINEER Routine 09/22/2020 9:44 Result s for this W/SPIN PUNC AM CDT procedure are i n the results section. HP FC LYMPHOMA B Now 09/22/2020 9:24 KAPPA/LAMBDA AM CDT INTERPRETATION AND REPORT HP FC FLOW CYTOMETRY Now 09/22/2020 9:24 Res ults for this BLOOD COLLECTION AM CDT procedure a re in the results section. HP FC LYMPHOMA B Now 09/22/2020 9:24 Results for this COLLECTION, NONBLOOD AM CDT procedu re are in the results section. 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 GLUCOSE CEREBROSPINAL Now 09/22/2020 9:24 Diffuse high gr josephine Results for this FLUID AM CDT B-cell lymphoma procedure ar e in the results section. PROTEIN CEREBROSPINAL Now 09/22/2020 9:24 Diffuse high gr josephine Results for this FLUID AM CDT B-cell lymphoma procedure ar e in the results section. CELL COUNT W/ DIFF Now 09/22/2020 9:24 Diffuse high grade Results for this CEREBROSPINAL FLUID AM CDT B-cell lymphoma proce dure are in the results section. CYTOLOGY NON-FINISH OFF OPERATOR Routine 09/22/2020 9:22 Diffuse high grade R esults for this INTERPRETATION AM CDT B-cell lymphoma procedure are in the results section. ANION GAP AM 09/22/2020 4:13 Results for this AM CDT procedure are i n the results section. HC REF HEPATITIS BC AB, AM 09/22/2020 4:13 Results for this IGG & IGM AM CDT procedure are i n the results section. .GLOMERULAR FILTRATION AM 09/22/2020 4:13 R esults for this RATE AM CDT procedure are i n the results section. SERUM CREATININE AM 09/22/2020 4:13 Results for this AM CDT procedure are i n the results section. MANUAL DIFFERENTIAL AM 09/22/2020 4:13 Resu lts for this AM CDT procedure are i n the results section. Results CBC AM 09/22/2020 4:13 Results for this AM CDT procedure are i n the results section. HEPATITIS B SURFACE AM 09/22/2020 4:13 Resu lts for this ANTIBODY, SERUM AM CDT procedure ar e in the results section. HEPATITIS B CORE AM 09/22/2020 4:13 Results for this ANTIBODY AM CDT procedure are i n the results section. HEPATITIS BE ANTIGEN, AM 09/22/2020 4:13 Re sults for this SERUM AM CDT procedure are i n the results section. HEPATITIS BE ANTIBODY, AM 09/22/2020 4:13 R esults for this SERUM AM CDT procedure are i n the results section. ALKALINE PHOSPHATASE AM 09/22/2020 4:13 Res ults for this AM CDT procedure are i n the results section. ASPARTATE AM 09/22/2020 4:13 Results for this AMINOTRANSFERASE AM CDT procedure a re in the results section. ALANINE AM 09/22/2020 4:13 Results for this AMINOTRANSFERASE AM CDT procedure a re in the results section. MAGNESIUM LEVEL AM 09/22/2020 4:13 Results for this AM CDT procedure are i n the results section. CALCIUM LEVEL TOTAL AM 09/22/2020 4:13 Resu lts for this AM CDT procedure are i n the results section. ALBUMIN LEVEL AM 09/22/2020 4:13 Results fo r this AM CDT procedure are i n the results section. FRACTIONATED BILIRUBIN AM 09/22/2020 4:13 R esults for this AM CDT procedure are i n the results section. PHOSPHORUS LEVEL AM 09/22/2020 4:13 Results for this AM CDT procedure are i n the results section. URIC ACID AM 09/22/2020 4:13 Results for this AM CDT procedure are i n the results section. LACTATE DEHYDROGENASE AM 09/22/2020 4:13 Re sults for this AM CDT procedure are i n the results section. GLUCOSE, RANDOM AM 09/22/2020 4:13 Results for this AM CDT procedure are i n the results section. SERUM CREATININE AM 09/22/2020 4:13 AM CDT BLOOD UREA NITROGEN AM 09/22/2020 4:13 Resu lts for this AM CDT procedure are i n the results section. CARBON DIOXIDE LEVEL AM 09/22/2020 4:13 Res ults for this AM CDT procedure are i n the results section. CHLORIDE LEVEL AM 09/22/2020 4:13 Results f or this AM CDT procedure are i n the results section. POTASSIUM LEVEL AM 09/22/2020 4:13 Results for this AM CDT procedure are i n the results section. SODIUM LEVEL AM 09/22/2020 4:13 Results for this AM CDT procedure are i n the results section. COMPLETE BLOOD COUNT W/ AM 09/22/2020 4:13 DIFFERENTIAL AM CDT POC GLUCOSE SCREEN Routine 09/21/2020 9:40 Resul ts for this PM CDT procedure are i n the results section. POC GLUCOSE SCREEN Routine 09/21/2020 5:06 Resul ts for this PM CDT procedure are i n the results section. .GLOMERULAR FILTRATION Routine 09/21/2020 4:36 R esults for this RATE PM CDT procedure are i n the results section. SERUM CREATININE Routine 09/21/2020 4:36 Results for this PM CDT procedure are i n the results section. APTT Now 09/21/2020 4:36 Diffuse high grade Resul ts for this PM CDT B-cell lymphoma procedure ar e in the results section. PROTHROMBIN TIME Now 09/21/2020 4:36 Diffuse high grade R esults for this PM CDT B-cell lymphoma procedure ar e in the results section. CARDIAC PANEL Timed Study 09/21/2020 4:36 Results fo r this PM CDT procedure are i n the results section. URIC ACID RASBURICASE Routine 09/21/2020 4:36 Re sults for this TREATED PM CDT procedure are i n the results section. LACTATE DEHYDROGENASE Routine 09/21/2020 4:36 Re sults for this PM CDT procedure are i n the results section. CALCIUM IONIZED, VENOUS Routine 09/21/2020 4:36 Results for this PM CDT procedure are i n the results section. PHOSPHORUS LEVEL Routine 09/21/2020 4:36 Results for this PM CDT procedure are i n the results section. MAGNESIUM LEVEL Routine 09/21/2020 4:36 Results for this PM CDT procedure are i n the results section. BLOOD UREA NITROGEN Routine 09/21/2020 4:36 Resu lts for this PM CDT procedure are i n the results section. SERUM CREATININE Routine 09/21/2020 4:36 PM CDT T-SPOT TUBERCULOSIS Routine 09/21/2020 4:36 Resu lts for this PM CDT procedure are i n the results section. PROCEDURE FOR CODING Routine 09/21/2020 3:53 Diffuse high gra de Results for this PM CDT B-cell lymphoma procedure ar e in the results section. POC GLUCOSE SCREEN Routine 09/21/2020 10:25 Resul ts for this AM CDT procedure are i n the results section. CARDIAC PANEL Timed Study 09/21/2020 9:54 Results fo r this AM CDT procedure are i n the results section. CARDIAC PANEL Timed Study 09/21/2020 2:25 Results fo r this AM CDT procedure are i n the results section. ANION GAP AM 09/21/2020 1:26 Results for this AM CDT procedure are i n the results section. .GLOMERULAR FILTRATION AM 09/21/2020 1:26 R esults for this RATE AM CDT procedure are i n the results section. SERUM CREATININE AM 09/21/2020 1:26 Results for this AM CDT procedure are i n the results section. MANUAL DIFFERENTIAL AM 09/21/2020 1:26 Resu lts for this AM CDT procedure are i n the results section. Results CBC AM 09/21/2020 1:26 Results for this AM CDT procedure are i n the results section. APTT Routine 09/21/2020 1:26 Results for this AM CDT procedure are i n the results section. PROTHROMBIN TIME Routine 09/21/2020 1:26 Results for this AM CDT procedure are i n the results section. ALKALINE PHOSPHATASE AM 09/21/2020 1:26 Res ults for this AM CDT procedure are i n the results section. ASPARTATE AM 09/21/2020 1:26 Results for this AMINOTRANSFERASE AM CDT procedure a re in the results section. ALANINE AM 09/21/2020 1:26 Results for this AMINOTRANSFERASE AM CDT procedure a re in the results section. MAGNESIUM LEVEL AM 09/21/2020 1:26 Results for this AM CDT procedure are i n the results section. CALCIUM LEVEL TOTAL AM 09/21/2020 1:26 Resu lts for this AM CDT procedure are i n the results section. ALBUMIN LEVEL AM 09/21/2020 1:26 Results fo r this AM CDT procedure are i n the results section. FRACTIONATED BILIRUBIN AM 09/21/2020 1:26 R esults for this AM CDT procedure are i n the results section. PHOSPHORUS LEVEL AM 09/21/2020 1:26 Results for this AM CDT procedure are i n the results section. URIC ACID AM 09/21/2020 1:26 Results for this AM CDT procedure are i n the results section. LACTATE DEHYDROGENASE AM 09/21/2020 1:26 Re sults for this AM CDT procedure are i n the results section. GLUCOSE, RANDOM AM 09/21/2020 1:26 Results for this AM CDT procedure are i n the results section. SERUM CREATININE AM 09/21/2020 1:26 AM CDT BLOOD UREA NITROGEN AM 09/21/2020 1:26 Resu lts for this AM CDT procedure are i n the results section. CARBON DIOXIDE LEVEL AM 09/21/2020 1:26 Res ults for this AM CDT procedure are i n the results section. CHLORIDE LEVEL AM 09/21/2020 1:26 Results f or this AM CDT procedure are i n the results section. POTASSIUM LEVEL AM 09/21/2020 1:26 Results for this AM CDT procedure are i n the results section. SODIUM LEVEL AM 09/21/2020 1:26 Results for this AM CDT procedure are i n the results section. COMPLETE BLOOD COUNT W/ AM 09/21/2020 1:26 DIFFERENTIAL AM CDT EKG, 12-LEAD (PORTABLE) STAT 09/21/2020 POC GLUCOSE SCREEN Routine 09/20/2020 11:50 Resul ts for this PM CDT procedure are i n the results section. POC GLUCOSE SCREEN Routine 09/20/2020 9:40 Resul ts for this PM CDT procedure are i n the results section. .GLOMERULAR FILTRATION Routine 09/20/2020 4:41 R esults for this RATE PM CDT procedure are i n the results section. SERUM CREATININE Routine 09/20/2020 4:41 Results for this PM CDT procedure are i n the results section. URIC ACID RASBURICASE Routine 09/20/2020 4:41 Re sults for this TREATED PM CDT procedure are i n the results section. LACTATE DEHYDROGENASE Routine 09/20/2020 4:41 Re sults for this PM CDT procedure are i n the results section. CALCIUM IONIZED, VENOUS Routine 09/20/2020 4:41 Results for this PM CDT procedure are i n the results section. PHOSPHORUS LEVEL Routine 09/20/2020 4:41 Results for this PM CDT procedure are i n the results section. MAGNESIUM LEVEL Routine 09/20/2020 4:41 Results for this PM CDT procedure are i n the results section. BLOOD UREA NITROGEN Routine 09/20/2020 4:41 Resu lts for this PM CDT procedure are i n the results section. SERUM CREATININE Routine 09/20/2020 4:41 PM CDT POC GLUCOSE SCREEN Routine 09/20/2020 2:35 Resul ts for this PM CDT procedure are i n the results section. POC GLUCOSE SCREEN Routine 09/20/2020 8:11 Resul ts for this AM CDT procedure are i n the results section. CLOT EXPIRATION DATE Routine 09/20/2020 4:53 Res ults for this AM CDT procedure are i n the results section. TMP INTERPRETATION Routine 09/20/2020 4:53 Resul ts for this ANTIBODY SCREEN AM CDT procedure ar e in NEGATIVE the results section. ANION GAP AM 09/20/2020 4:53 Results for this AM CDT procedure are i n the results section. .GLOMERULAR FILTRATION AM 09/20/2020 4:53 R esults for this RATE AM CDT procedure are i n the results section. SERUM CREATININE AM 09/20/2020 4:53 Results for this AM CDT procedure are i n the results section. MANUAL DIFFERENTIAL AM 09/20/2020 4:53 Resu lts for this AM CDT procedure are i n the results section. Results CBC AM 09/20/2020 4:53 Results for this AM CDT procedure are i n the results section. ANTIBODY SCREEN Routine 09/20/2020 4:53 Results for this AM CDT procedure are i n the results section. ABORH Routine 09/20/2020 4:53 Results for this AM CDT procedure are i n the results section. TYPE AND SCREEN Routine 09/20/2020 4:53 AM CDT ALKALINE PHOSPHATASE AM 09/20/2020 4:53 Res ults for this AM CDT procedure are i n the results section. ASPARTATE AM 09/20/2020 4:53 Results for this AMINOTRANSFERASE AM CDT procedure a re in the results section. ALANINE AM 09/20/2020 4:53 Results for this AMINOTRANSFERASE AM CDT procedure a re in the results section. MAGNESIUM LEVEL AM 09/20/2020 4:53 Results for this AM CDT procedure are i n the results section. CALCIUM LEVEL TOTAL AM 09/20/2020 4:53 Resu lts for this AM CDT procedure are i n the results section. ALBUMIN LEVEL AM 09/20/2020 4:53 Results fo r this AM CDT procedure are i n the results section. FRACTIONATED BILIRUBIN AM 09/20/2020 4:53 R esults for this AM CDT procedure are i n the results section. PHOSPHORUS LEVEL AM 09/20/2020 4:53 Results for this AM CDT procedure are i n the results section. URIC ACID AM 09/20/2020 4:53 Results for this AM CDT procedure are i n the results section. LACTATE DEHYDROGENASE AM 09/20/2020 4:53 Re sults for this AM CDT procedure are i n the results section. GLUCOSE, RANDOM AM 09/20/2020 4:53 Results for this AM CDT procedure are i n the results section. SERUM CREATININE AM 09/20/2020 4:53 AM CDT BLOOD UREA NITROGEN AM 09/20/2020 4:53 Resu lts for this AM CDT procedure are i n the results section. CARBON DIOXIDE LEVEL AM 09/20/2020 4:53 Res ults for this AM CDT procedure are i n the results section. CHLORIDE LEVEL AM 09/20/2020 4:53 Results f or this AM CDT procedure are i n the results section. POTASSIUM LEVEL AM 09/20/2020 4:53 Results for this AM CDT procedure are i n the results section. SODIUM LEVEL AM 09/20/2020 4:53 Results for this AM CDT procedure are i n the results section. COMPLETE BLOOD COUNT W/ AM 09/20/2020 4:53 DIFFERENTIAL AM CDT POC GLUCOSE SCREEN Routine 09/19/2020 10:33 Resul ts for this PM CDT procedure are i n the results section. POC GLUCOSE SCREEN Routine 09/19/2020 9:23 Resul ts for this PM CDT procedure are i n the results section. US RENAL Routine 09/19/2020 4:28 Results for this PM CDT procedure are i n the results section. .GLOMERULAR FILTRATION Routine 09/19/2020 4:28 R esults for this RATE PM CDT procedure are i n the results section. SERUM CREATININE Routine 09/19/2020 4:28 Results for this PM CDT procedure are i n the results section. URIC ACID RASBURICASE Routine 09/19/2020 4:28 Re sults for this TREATED PM CDT procedure are i n the results section. LACTATE DEHYDROGENASE Routine 09/19/2020 4:28 Re sults for this PM CDT procedure are i n the results section. CALCIUM IONIZED, VENOUS Routine 09/19/2020 4:28 Results for this PM CDT procedure are i n the results section. PHOSPHORUS LEVEL Routine 09/19/2020 4:28 Results for this PM CDT procedure are i n the results section. MAGNESIUM LEVEL Routine 09/19/2020 4:28 Results for this PM CDT procedure are i n the results section. BLOOD UREA NITROGEN Routine 09/19/2020 4:28 Resu lts for this PM CDT procedure are i n the results section. SERUM CREATININE Routine 09/19/2020 4:28 PM CDT POC GLUCOSE SCREEN Routine 09/19/2020 3:52 Resul ts for this PM CDT procedure are i n the results section. POC GLUCOSE SCREEN Routine 09/19/2020 1:19 Resul ts for this PM CDT procedure are i n the results section. URINALYSIS WITH Routine 09/19/2020 12:24 Results for this MICROSCOPIC IF PM CDT procedure are in INDICATED the results section. URINALYSIS MICROSCOPIC Now 09/19/2020 12:24 R esults for this PM CDT procedure are i n the results section. POC GLUCOSE SCREEN Routine 09/19/2020 8:06 Resul ts for this AM CDT procedure are i n the results section. TMP HIV 1/2 AG&AB PATH Routine 09/19/2020 4:42 R esults for this INTERP AM CDT procedure are i n the results section. ANION GAP AM 09/19/2020 4:42 Results for this AM CDT procedure are i n the results section. .GLOMERULAR FILTRATION AM 09/19/2020 4:42 R esults for this RATE AM CDT procedure are i n the results section. SERUM CREATININE AM 09/19/2020 4:42 Results for this AM CDT procedure are i n the results section. MANUAL DIFFERENTIAL AM 09/19/2020 4:42 Resu lts for this AM CDT procedure are i n the results section. Results CBC AM 09/19/2020 4:42 Results for this AM CDT procedure are i n the results section. HBV DNA QUANT Routine 09/19/2020 4:42 Results fo r this AM CDT procedure are i n the results section. HC HIV 1/2 AG AND AB Routine 09/19/2020 4:42 Res ults for this 4TH GEN AM CDT procedure are i n the results section. ALKALINE PHOSPHATASE AM 09/19/2020 4:42 Res ults for this AM CDT procedure are i n the results section. ASPARTATE AM 09/19/2020 4:42 Results for this AMINOTRANSFERASE AM CDT procedure a re in the results section. ALANINE AM 09/19/2020 4:42 Results for this AMINOTRANSFERASE AM CDT procedure a re in the results section. MAGNESIUM LEVEL AM 09/19/2020 4:42 Results for this AM CDT procedure are i n the results section. CALCIUM LEVEL TOTAL AM 09/19/2020 4:42 Resu lts for this AM CDT procedure are i n the results section. ALBUMIN LEVEL AM 09/19/2020 4:42 Results fo r this AM CDT procedure are i n the results section. FRACTIONATED BILIRUBIN AM 09/19/2020 4:42 R esults for this AM CDT procedure are i n the results section. PHOSPHORUS LEVEL AM 09/19/2020 4:42 Results for this AM CDT procedure are i n the results section. URIC ACID AM 09/19/2020 4:42 Results for this AM CDT procedure are i n the results section. LACTATE DEHYDROGENASE AM 09/19/2020 4:42 Re sults for this AM CDT procedure are i n the results section. GLUCOSE, RANDOM AM 09/19/2020 4:42 Results for this AM CDT procedure are i n the results section. SERUM CREATININE AM 09/19/2020 4:42 AM CDT BLOOD UREA NITROGEN AM 09/19/2020 4:42 Resu lts for this AM CDT procedure are i n the results section. CARBON DIOXIDE LEVEL AM 09/19/2020 4:42 Res ults for this AM CDT procedure are i n the results section. CHLORIDE LEVEL AM 09/19/2020 4:42 Results f or this AM CDT procedure are i n the results section. POTASSIUM LEVEL AM 09/19/2020 4:42 Results for this AM CDT procedure are i n the results section. SODIUM LEVEL AM 09/19/2020 4:42 Results for this AM CDT procedure are i n the results section. COMPLETE BLOOD COUNT W/ AM 09/19/2020 4:42 DIFFERENTIAL AM CDT POC GLUCOSE SCREEN Routine 09/18/2020 11:35 Resul ts for this PM CDT procedure are i n the results section. POC GLUCOSE SCREEN Routine 09/18/2020 9:27 Resul ts for this PM CDT procedure are i n the results section. CT CHEST PULMONARY Routine 09/18/2020 9:13 Resul ts for this EMBOLISM W CONTRAST PM CDT procedur e are in the results section. MRI BRAIN W WO CONTRAST Routine 09/18/2020 8:44 Results for this PM CDT procedure are i n the results section. HTLV I+II AB STAT 09/18/2020 2:25 Results for this CONFIRMATION, SERUM PM CDT procedur e are in the results section. HEPATITIS C VIRUS RNA STAT 09/18/2020 2:25 Re sults for this DETECT/QUANT, SERUM PM CDT procedur e are in the results section. TMP RPR PATH INTERP Routine 09/18/2020 2:25 Resu lts for this PM CDT procedure are i n the results section. TMP HIV 1/2 AG&AB PATH Routine 09/18/2020 2:25 R esults for this INTERP PM CDT procedure are i n the results section. RAPID PLASMA REAGIN Now 09/18/2020 2:25 Resu lts for this (RPR) PM CDT procedure are i n the results section. HIV-1/2 ANTIGEN AND Now 09/18/2020 2:25 Resu lts for this ANTIBODIES, FOURTH PM CDT procedure are in GENERATION the results section. HIV-1 DNA AND RNA QUAL Now 09/18/2020 2:25 R esults for this PCR PM CDT procedure are i n the results section. .GLOMERULAR FILTRATION Routine 09/18/2020 2:25 R esults for this RATE PM CDT procedure are i n the results section. SERUM CREATININE Routine 09/18/2020 2:25 Results for this PM CDT procedure are i n the results section. TRANSFERRIN Routine 09/18/2020 2:25 Results for this PM CDT procedure are i n the results section. FERRITIN LVL Routine 09/18/2020 2:25 Results for this PM CDT procedure are i n the results section. IRON LEVEL Routine 09/18/2020 2:25 Results for this PM CDT procedure are i n the results section. PTH INTACT Routine 09/18/2020 2:25 Results for this PM CDT procedure are i n the results section. URIC ACID RASBURICASE Routine 09/18/2020 2:25 Re sults for this TREATED PM CDT procedure are i n the results section. LACTATE DEHYDROGENASE Routine 09/18/2020 2:25 Re sults for this PM CDT procedure are i n the results section. CALCIUM IONIZED, VENOUS Routine 09/18/2020 2:25 Results for this PM CDT procedure are i n the results section. PHOSPHORUS LEVEL Routine 09/18/2020 2:25 Results for this PM CDT procedure are i n the results section. MAGNESIUM LEVEL Routine 09/18/2020 2:25 Results for this PM CDT procedure are i n the results section. BLOOD UREA NITROGEN Routine 09/18/2020 2:25 Resu lts for this PM CDT procedure are i n the results section. SERUM CREATININE Routine 09/18/2020 2:25 PM CDT PERIPHERAL SMEAR FOR Routine 09/18/2020 2:25 Res ults for this BONE MARROW PM CDT procedure are i n the results section. CMV ANTIBODY IGG AND Routine 09/18/2020 2:25 Res ults for this IGM PATH REVIEW PM CDT procedure ar e in the results section. CMV ANTIBODY IGG AND Now 09/18/2020 2:25 Res ults for this IGM PM CDT procedure are i n the results section. INFECTIOUS DISEASE Now 09/18/2020 2:25 GROUPING PM CDT POC GLUCOSE SCREEN Routine 09/18/2020 2:24 Resul ts for this PM CDT procedure are i n the results section. HTLV I/II AB SCREEN Now 09/18/2020 10:37 Res ults for this WITH CONFIRM AM CDT procedure are i n the results section. HEPATITIS C VIRUS AB Now 09/18/2020 10:37 Res ults for this SCREEN W/REFLEX HCV PCR AM CDT proc edure are in the results section. HEPATITIS B SURFACE AG Now 09/18/2020 10:37 R esults for this W/CONFIRM AM CDT procedure are i n the results section. HEPATITIS B CORE TOTAL Now 09/18/2020 10:37 R esults for this ANTIBODY AM CDT procedure are i n the results section. HEPATITIS B SURFACE STAT 09/18/2020 10:37 Resu lts for this ANTIGEN, SERUM AM CDT procedure are in the results section. HEPATITIS B CORE Routine 09/18/2020 10:37 Results for this ANTIBODY AM CDT procedure are i n the results section. POC GLUCOSE SCREEN Routine 09/18/2020 8:08 Resul ts for this AM CDT procedure are i n the results section. ANION GAP AM 09/18/2020 1:24 Results for this AM CDT procedure are i n the results section. .GLOMERULAR FILTRATION AM 09/18/2020 1:24 R esults for this RATE AM CDT procedure are i n the results section. SERUM CREATININE AM 09/18/2020 1:24 Results for this AM CDT procedure are i n the results section. MANUAL DIFFERENTIAL AM 09/18/2020 1:24 Resu lts for this AM CDT procedure are i n the results section. Results CBC AM 09/18/2020 1:24 Results for this AM CDT procedure are i n the results section. ALKALINE PHOSPHATASE AM 09/18/2020 1:24 Res ults for this AM CDT procedure are i n the results section. ASPARTATE AM 09/18/2020 1:24 Results for this AMINOTRANSFERASE AM CDT procedure a re in the results section. ALANINE AM 09/18/2020 1:24 Results for this AMINOTRANSFERASE AM CDT procedure a re in the results section. MAGNESIUM LEVEL AM 09/18/2020 1:24 Results for this AM CDT procedure are i n the results section. CALCIUM LEVEL TOTAL AM 09/18/2020 1:24 Resu lts for this AM CDT procedure are i n the results section. ALBUMIN LEVEL AM 09/18/2020 1:24 Results fo r this AM CDT procedure are i n the results section. FRACTIONATED BILIRUBIN AM 09/18/2020 1:24 R esults for this AM CDT procedure are i n the results section. PHOSPHORUS LEVEL AM 09/18/2020 1:24 Results for this AM CDT procedure are i n the results section. URIC ACID AM 09/18/2020 1:24 Results for this AM CDT procedure are i n the results section. LACTATE DEHYDROGENASE AM 09/18/2020 1:24 Re sults for this AM CDT procedure are i n the results section. GLUCOSE, RANDOM AM 09/18/2020 1:24 Results for this AM CDT procedure are i n the results section. SERUM CREATININE AM 09/18/2020 1:24 AM CDT BLOOD UREA NITROGEN AM 09/18/2020 1:24 Resu lts for this AM CDT procedure are i n the results section. CARBON DIOXIDE LEVEL AM 09/18/2020 1:24 Res ults for this AM CDT procedure are i n the results section. CHLORIDE LEVEL AM 09/18/2020 1:24 Results f or this AM CDT procedure are i n the results section. POTASSIUM LEVEL AM 09/18/2020 1:24 Results for this AM CDT procedure are i n the results section. SODIUM LEVEL AM 09/18/2020 1:24 Results for this AM CDT procedure are i n the results section. COMPLETE BLOOD COUNT W/ AM 09/18/2020 1:24 DIFFERENTIAL AM CDT XR CHEST 1 VW POST Routine 09/18/2020 1:12 Resul ts for this IMPLANT AM CDT procedure are i n the results section. ECHOCARDIOGRAM 2D Routine 09/17/2020 4:14 Result s for this COMPLETE PM CDT procedure are i n the results section. TMP INTERPRETATION Routine 09/17/2020 2:19 Resul ts for this ANTIBODY SCREEN PM CDT procedure ar e in NEGATIVE the results section. CLOT EXPIRATION DATE Routine 09/17/2020 2:19 Res ults for this PM CDT procedure are i n the results section. FRACTIONATED BILIRUBIN Now 09/17/2020 2:19 R esults for this PM CDT procedure are i n the results section. TOTAL PROTEIN Now 09/17/2020 2:19 Results fo r this PM CDT procedure are i n the results section. ASPARTATE Now 09/17/2020 2:19 Results for this AMINOTRANSFERASE PM CDT procedure a re in the results section. ALANINE Now 09/17/2020 2:19 Results for this AMINOTRANSFERASE PM CDT procedure a re in the results section. ALKALINE PHOSPHATASE Now 09/17/2020 2:19 Res ults for this PM CDT procedure are i n the results section. ALBUMIN LEVEL Now 09/17/2020 2:19 Results fo r this PM CDT procedure are i n the results section. CALCIUM LEVEL TOTAL Now 09/17/2020 2:19 Resu lts for this PM CDT procedure are i n the results section. .GLOMERULAR FILTRATION Now 09/17/2020 2:19 R esults for this RATE PM CDT procedure are i n the results section. SERUM CREATININE Now 09/17/2020 2:19 Results for this PM CDT procedure are i n the results section. ELECTROLYTE PANEL Now 09/17/2020 2:19 Result s for this PM CDT procedure are i n the results section. BLOOD UREA NITROGEN Now 09/17/2020 2:19 Resu lts for this PM CDT procedure are i n the results section. GLUCOSE LEVEL Now 09/17/2020 2:19 Results fo r this PM CDT procedure are i n the results section. MANUAL DIFFERENTIAL Now 09/17/2020 2:19 Resu lts for this PM CDT procedure are i n the results section. Results CBC Now 09/17/2020 2:19 Results for this PM CDT procedure are i n the results section. LACTATE DEHYDROGENASE Now 09/17/2020 2:19 Re sults for this PM CDT procedure are i n the results section. PHOSPHORUS LEVEL Now 09/17/2020 2:19 Results for this PM CDT procedure are i n the results section. MAGNESIUM LEVEL Now 09/17/2020 2:19 Results for this PM CDT procedure are i n the results section. COMPREHENSIVE METABOLIC Now 09/17/2020 2:19 PANEL PM CDT COMPLETE BLOOD COUNT W/ Now 09/17/2020 2:19 DIFFERENTIAL PM CDT ANTIBODY SCREEN Routine 09/17/2020 2:19 Results for this PM CDT procedure are i n the results section. ABORH Routine 09/17/2020 2:19 Results for this PM CDT procedure are i n the results section. TYPE AND SCREEN Routine 09/17/2020 2:19 PM CDT CONFIRM ABORH TYPE Routine 09/17/2020 2:16 Resul ts for this PM CDT procedure are i n the results section. INFLUENZA A/B + Now 09/17/2020 1:42 Results for this COVID-19 ASYMPTOMATIC-L PM CDT proc edure are in the results section. EKG, 12-LEAD (PORTABLE) Routine 09/17/2020 PETCT INITIAL TREATMENT Routine 09/16/2020 11:58 Mass of neck Results for this STRATEGY AM CDT Abnormal findings procedure are in on diagnostic the results imaging of skull section. and head, not elsewhere classified POC GLUCOSE SCREEN Routine 09/16/2020 10:12 Resul ts for this AM CDT procedure are i n the results section. US GUIDED SOFT TISSUE Routine 09/10/2020 2:51 Mass of neck Re sults for this BIOPSY PM CDT procedure are i n the results section. US FINE NEEDLE Routine 09/10/2020 2:51 Mass of neck Results f or this ASPIRATION PM CDT procedure are i n the results section. US HEAD NECK SOFT Routine 09/10/2020 2:51 Mass of neck Result s for this TISSUE PM CDT procedure are i n the results section. PATHOLOGY BIOPSY Routine 09/10/2020 1:52 Mass of neck Results for this INTERPRETATION PM CDT procedure are in the results section. CYTOLOGY IMAGE-GUIDED Routine 09/10/2020 12:14 Mass of neck Re sults for this FNA INTERPRETATION PM CDT procedure are in the results section. HP CG MYC IGH CEP8 FISH Routine 09/10/2020 11:53 INTERPRETATION AND AM CDT REPORT HP CYTOGENETICS BLOOD Routine 09/10/2020 11:53 Re sults for this COLLECTION AM CDT procedure are i n the results section. HP CG MYC TISSUE FISH Routine 09/10/2020 7:17 INTERPRETATION AND AM CDT REPORT HP CG BCL6 TISSUE FISH Routine 09/10/2020 7:17 INTERPRETATION AND AM CDT REPORT HP CG IGH/BCL2 T(14;18) Routine 09/10/2020 7:17 TISSUE FISH AM CDT INTERPRETATION AND REPORT HP CYTOGENETICS BLOOD Routine 09/10/2020 7:17 Re sults for this COLLECTION AM CDT procedure are i n the results section. HEPATITIS C VIRUS RNA Routine 09/09/2020 11:05 Re sults for this DETECT/QUANT, SERUM AM CDT procedur e are in the results section. HEPATITIS C VIRUS AB Routine 09/09/2020 11:05 Res ults for this SCREEN W/REFLEX HCV PCR AM CDT proc edure are in the results section. HEMOGLOBIN A1C Routine 09/09/2020 11:05 Mass of neck Results f or this AM CDT procedure are i n the results section. HEPATITIS C VIRUS Routine 09/09/2020 11:05 Mass of neck Result s for this ANTIBODY AM CDT procedure are i n the results section. COVID-19 (SARS-COV-2) Routine 09/05/2020 1:36 Suspected COVID -19 Results for this PCR-ASYMPTOMATIC MC PM CDT procedur e are in the results section. after 04/21/2020 Results (ABNORMAL) .Serum Creatinine (11/14/2020 2:17 AM CDT)Only the most recent of77 resultswithin the time period is included. Pathologist Sig nature Creatinine 2.53 (H) 0.67 - 1.17 mg/dL [facility] Specimen Blood Performing Organization Address City/State/ZIP Code Phon e Number [facility] CANCER Unless otherwise noted, [place] [address] [place] all lab tests performed by: Division of Pathology and Laboratory Medicine [address] [place] (ABNORMAL) .CBC (11/14/2020 2:17 AM CDT)Only the most recent of39 resultswithin the time period is included. WBC 22.7 (H) 4.0 - 11.0 [facility] K/[facility] RBC 2.92 (L) 4.50 - 6.00 [facility] M/[facility] Hgb 8.7 (L) 14.0 - 18.0 [facility] gm/dL [facility] Hct 26.6 (L) 40.0 - 54.0 % [facility] MCV 91 82 - 98 fL [facility] MCH 29.8 27.0 - 31.0 pg [facility] MCHC 32.7 31.0 - 36.0 [facility] gm/dL [facility] RDW-SD 55.0 (H) 35.1 - 46.3 fL [facility] RDW-CV 16.5 (H) 12.0 - 15.5 % [facility] Platelet count 136 (L) 140 - 440 K/uL [facility] MPV 10.6 (H) 4.0 - 10.4 fL [facility] INRBC 0.0 <=0.0 % [facility] Comment: [facility] The INRBC (instrument NRBC) value reflects the enumera tion of nucleated red blood cells contained in a 200uL samp le of whole blood analyzed by the instrument. This value may differ from the NRBC value reported in a manual differ ential, which is based on a 100 cell differential. Specimen Blood Performing Organization Address City/State/ZIP Code Phon e Number [facility] CANCER Unless otherwise noted, [place] [address] [place] all lab tests performed by: Division of Pathology and Laboratory Medicine [address] (ABNORMAL) Glomerular Filtration Rate (11/14/2020 2:17 AM CDT)Only the most recent of77 resultswithin the time period is included. eGFR-AA 28 (L) >=60 [facility] Comment: mL/min/1.73 [facility] Normal eGFR: >= 60 mL/min/1.73 m2 sq. m Note: The eGFR is calculated using the CKD-EPI equation. The eGFR declines with age. eGFR <60 mL/min/1.73 m2 is considered as "decreased". This equation should only be used for patients 18 and older. According to the [facility]'s Kidney Disease Outcome Quality Initiative (KDOQI) classification and 2012 Kidney Disease Improving Global Outcomes (KDIGO) Clinical Practice Guideline, the stage of CKD should be categorized based on estimated GFR. Stage Description GFR mL/min/1.73 m2 1 Normal or high GFR >=90 2 Mildly decreased GFR 60-89 3a Mildly to moderately decreased GFR 45-59 3b Moderately to severely decreased GFR 30-44 4 Severely decreased GFR 15-29 5 Kidney failure <15 eGFR-CHRISS 24 (L) >=60 [facility] Comment: mL/min/1.73 [facility] Normal eGFR: >= 60 mL/min/1.73 m2 sq. m Note: The eGFR is calculated using the CKD-EPI equation. The eGFR declines with age. eGFR <60 mL/min/1.73 m2 is considered as "decreased". This equation should only be used for patients 18 and older. According to the [facility]'s Kidney Disease Outcome Quality Initiative (KDOQI) classification and 2012 Kidney Disease Improving Global Outcomes (KDIGO) Clinical Practice Guideline, the stage of CKD should be categorized based on estimated GFR. Stage Description GFR mL/min/1.73 m2 1 Normal or high GFR >=90 2 Mildly decreased GFR 60-89 3a Mildly to moderately decreased GFR 45-59 3b Moderately to severely decreased GFR 30-44 4 Severely decreased GFR 15-29 5 Kidney failure <15 Specimen Blood Performing Organization Address City/[facility] Phon e Number [facility] CANCER Unless otherwise noted, [address] all lab tests performed by: Division of Pathology and Laboratory Medicine [address] [place] Fractionated Bilirubin (11/14/2020 2:17 AM CDT)Only the most recent of54 resultswithin the time period is included. Bili Total 0.4 <=1.2 mg/dL [facility] Comment: [facility] Indocyanine Green (ICG) may cause falsely elevated bilirubin results. Total and direct bilirubin must not be measured from samples containing indocyanine green. False elevation of total daniel irubin can be seen in patients with IgG concentrations above 28 g/L. Bili Direct 0.2Comment: <=0.3 mg/dL [facility] Indocyanine Green [facility] (ICG) may cause falsely elevated bilirubin results. Total and direct bilirubin must not be measured from samples containing indocyanine green. Bili Indirect 0.2 0.0 - 0.9 [facility] mg/dL [facility] Specimen Blood Performing Organization Address [facility] Phon e Number [facility] CANCER Unless otherwise noted, [address] all lab tests performed by: Division of Pathology and Laboratory Medicine [facility]5 Screend (ABNORMAL) Differential (11/14/2020 2:17 AM CDT)Only the most recent of37 resultswithin the time period is included. Total Cells 115 [facility] Neutrophil % 82.0 (H)Comment: The 42.0 - 66.0 % [facility] Neutrophil count [facility] includes Bands. Lymphocyte % 2.0 (L) 24.0 - 44.0 % [facility] Monocyte % 11.0 (H) 2.0 - 7.0 % [facility] Metamyelocyte % 5.0 (H)Comment: The <=0.0 % [facility] Metamyelocyte count [facility] includes Myelocytes. NRBC 1.0 (H) <=0.0 [facility] Neutrophil Abs 18.61 (H) 1.70 - 7.30 [facility] Lymphocyte Abs 0.45 (L) 1.00 - 4.80 [facility] Monocyte Abs 2.50 (H) 0.08 - 0.70 [facility] RBC Morph Present (A) Normal [facility] Spherocyte Few (A) Not Seen [facility] Anisocytosis Present (A) Not Present [facility] Ovalocyte Present (A) Not Present [facility] Tear Drop Present (A) Not Present [facility] Slide Comments See Note (A)Comment: [facility] Platelet morphology [facility] normal. Specimen Blood Performing Organization Address [facility] Phon e Number [facility] Unless otherwise noted, [address] all lab tests performed by: Division of Pathology and Laboratory Medicine [address] [place] [address] [place] (ABNORMAL) Uric Acid (11/14/2020 2:17 AM CDT)Only the most recent of24 results within the time period is included. Pathologist Sig nature Uric Acid 8.5 (H) 3.4 - 7.0 mg/dL [facility] TER Specimen Blood Performing Organization Address [facility] Phon e Number [facility] Unless otherwise noted, [address] all lab tests performed by: Division of Pathology and Laboratory Medicine [address] [place] [address] [place] (ABNORMAL) BUN (11/14/2020 2:17 AM CDT)Only the most recent of77 resultswithin the time period is included. Pathologist Sig nature BUN 29 (H) 6 - 23 mg/dL [facility] Specimen Blood Performing Organization Address City/[facility] Phon e Number [facility] CAN[facility]ER Unless otherwise noted, [address] all lab tests performed by: Division of Pathology and Laboratory Medicine [address] [place] [address] [place] ALT (11/14/2020 2:17 AM CDT)Only the most recent of54 resultswithin the time period is included. Pathologist Sig nature ALT 16 <=41 U/L [facility] Specimen Blood Performing Organization Address City/[facility] Phon e Number [facility] Unless otherwise noted, [address] all lab tests performed by: Division of Pathology and Laboratory Medicine [address] [place] Aspartate Aminotransferase (11/14/2020 2:17 AM CDT)Only the most recent of54 resultswithin the time period is included. Pathologist Sig nature AST 19 <=40 U/L [facility] Specimen Blood Performing Organization Address [facility] Phon e Number [facility] Unless otherwise noted, [address] all lab tests performed by: Division of Pathology and Laboratory Medicine [facility] [address] [place] (ABNORMAL) Total Protein (11/14/2020 2:17 AM CDT)Only the most recent of48 resultswithin the time period is included. Pathologist Sig nature Total Protein 6.2 (L) 6.4 - 8.3 g/dL [facility] Specimen Blood Performing Organization Address [facility] Phon e Number [facility] Unless otherwise noted, [address] all lab tests performed by: Division of Pathology and Laboratory Medicine [address] [place] [address] [place] Phosphorus Level (11/14/2020 2:17 AM CDT)Only the most recent of78 results within the time period is included. Pathologist Sig nature Phosphorus 3.5 2.5 - 4.5 mg/dL [facility] Specimen Blood Performing Organization Address [facility] Phon e Number [facility] Unless otherwise noted, [address] all lab tests performed by: Division of Pathology and Laboratory Medicine [address] [place] (ABNORMAL) Alkaline Phosphatase (11/14/2020 2:17 AM CDT)Only the most recent of 54 resultswithin the time period is included. Pathologist Sig nature Alk Phos 249 (H) 40 - 129 U/L [facility] Specimen Blood Performing Organization Address City/[facility] Phon e Number [facility] Unless otherwise noted, [address] all lab tests performed by: Division of Pathology and Laboratory Medicine [address] [place] Magnesium Level (11/14/2020 2:17 AM CDT)Only the most recent of81 resultswithin the time period is included. Pathologist Sig nature Magnesium 1.8 1.6 - 2.6 mg/dL [facility] CANCER [address] Specimen Blood Performing Organization Address [facility] Phon e Number [facility] CANCER Unless otherwise noted, [address] all lab tests performed by: Division of Pathology and Laboratory Medicine [address] [place] (ABNORMAL) LDH (11/14/2020 2:17 AM CDT)Only the most recent of38 resultswithin the time period is included. LDH 336 (H)Comment: 135 - 225 U/L [facility] Results greater than [facility] 1651 U/L may not be reliable due to matrix effect with extended dilution as it exceeds the calenderer s recommended limit. Caution should be exercised when interpreting such values and done in conjunction with clinical context. Specimen Blood Performing Organization Address [facility] Phon e Number [facility] Unless otherwise noted, [address] all lab tests performed by: Division of Pathology and Laboratory Medicine [address] [place] Glucose Level (11/14/2020 2:17 AM CDT)Only the most recent of67 resultswithin the time period is included. Glucose Level 93 70 - 99 mg/dL [facility] Comment: [facility] Effective 10/21/15, the gluco se reference intervals have been updated based on [place] [employer] guidelines (Standards of Medical Care in Diabetes 2016. Diabetes Care 2016; 39: S13-S22). Fasting blood glucose: Normal: 70-99 mg/dL Impaired fasting glucose (in creased risk for diabetes or pre-diabetes): 100- 125 mg/dL Diabetes mellitus: >/=126 mg/dL Random blood glucose: Normal: 70-199 mg/dL Note: Random glucose >100 mg/dL is assoc iated with increased risk for diabetes Specimen Blood Performing Organization Address [facility] Phon e Number [facility] CANCER Unless otherwise noted, [address] all lab tests performed by: Division of Pathology and Laboratory Medicine [address] [place] (ABNORMAL) Calcium Level (11/14/2020 2:17 AM CDT)Only the most recent of65 resultswithin the time period is included. Pathologist Sig nature Calcium Lvl 8.3 (L) 8.4 - 10.2 mg/dL [facility] Specimen Blood Performing Organization Address City/[facility] Phon e Number [facility] CANCER Unless otherwise noted, [address] all lab tests performed by: Division of Pathology and Laboratory Medicine [address] (ABNORMAL) Albumin Level (11/14/2020 2:17 AM CDT)Only the most recent of54 resultswithin the time period is included. Pathologist Sig nature Albumin Lvl 3.1 (L) 3.5 - 5.2 gm/dL [facility] Specimen Blood Performing Organization Address City/[facility] e Number [facility] Unless otherwise noted, [address] all lab tests performed by: Division of Pathology and Laboratory Medicine [id number] (ABNORMAL) Electrolyte Panel (11/14/2020 2:17 AM CDT)Only the most recent of67 resultswithin the time period is included. Pathologist Sig nature Sodium Lvl 140 136 - 145 mEq/L [facility] Potassium Lvl 4.2 3.5 - 5.1 mEq/L [facility] Chloride 100 98 - 107 mEq/L [facility] CO2 30 (H) 22 - 29 mEq/L [facility] Anion Gap 10 4 - 14 mEq/L [facility] Specimen Blood Performing Organization Address City/[facility] Phon e Number [facility] CANCER Unless otherwise noted, [address] all lab tests performed by: Division of Pathology and Laboratory [facility] Clot Expiration Date (11/13/2020 3:47 AM CDT)Only the most recent of19 results within the time period is included. Pathologist Sig nature T & S Expiration 11/16/2020 [facility] Specimen Blood Performing Organization Address City/[facility] e Number [facility] CANCER Unless otherwise noted, [address] all lab tests performed by: Division of Pathology and Laboratory Medicine [facility] Screend TMP Interpretation Antibody Screen Negative (11/13/2020 3:47 AM CDT)Only the most recent of19 resultswithin the time period is included. TMP Auto Neg ABSC At the present time, patien t plasma shows no evidence of RBC alloantibodies. [facility] Interp Comment: [facility] MANUELA ASHLEY, Dictated by: MANUELA ASHLEY, Dictated Date/Time: 11.14.19 7:43 AM CDT Transcribed Date/Time: 11.13.2020 7:43 AM CDT Electronically Signed By: MANUELA ASHLEY, on 10.26 7:43 AM C Specimen Blood Performing Organization Address City/[facility]/ZIP Code Phon e Number [facility] Unless otherwise noted, [address] all lab tests performed by: Division of Pathology and Laboratory Medicine [address] [place] [address] [place] (ABNORMAL) Partial Thromboplastin Time (11/13/2020 3:47 AM CDT)Only the most recent of37 resultswithin the time period is included. Pathologist Phuc cali aPTT 43.1 (H) 24.7 - 36.8 [facility](s) CENTER Specimen Blood Performing Organization Address City/[facility] Phon e Number [facility] CANCER Unless otherwise noted, [address] all lab tests performed by: Division of Pathology and Laboratory Medicine [address] [place] [address] Pierre ABORh (11/13/2020 3:47 AM CDT)Only the most recent of19 resultswithin the time period is included. Pathologist Sig karely ABORh. A POS [facility] Specimen Blood Performing Organization Address City/[facility] Phon e Number [facility] CANCER Unless otherwise noted, [address] all lab tests performed by: Division of Pathology and Laboratory Medicine [address] [place] [address] [place] (ABNORMAL) Prothrombin Time with INR (11/13/2020 3:47 AM CDT)Only the most recent of37 resultswithin the time period is included. Pathologist Sig nature PT 16.1 (H) 11.5 - 13.9 [facility] second(s) CENTER INR 1.40 (H) 0.90 - 1.10 [facility] Specimen Blood Performing Organization Address City/State/ZIP Code Phon e Number [facility] Unless otherwise noted, [address] all lab tests performed by: Division of Pathology and Laboratory Medicine [facility]5 [facility] Antibody Screen (11/13/2020 3:47 AM CDT)Only the most recent of19 resultswithin the time period is included. Pathologist Sig nature ABSC. Negative ABSC [facility] Specimen Blood Performing Organization Address City/[facility]/ZIP Code Phon e Number [facility] Unless otherwise noted, [address] all lab tests performed by: Division of Pathology and Laboratory Medicine [facility] US Renal (11/12/2020 7:36 AM CDT)Only the most recent of2 resultswithin the time period is included. Specimen Impressions [id number] - 11/12/2020 7:44 AM CDT No hydronephrosis. 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 Findings: The kidneys are difficult to image by ul trasound secondary to patient body habitus and limited motion. Allowing for this, the 10 cm long kidney s have normal echogenicity without measurable mass or hydronephrosis. No filling defects are seen in the urina ry bladder. 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 Findings: The kidneys are difficult to image by ul trasound secondary to patient body habitus and limited motion. Allowing for this, the 10 cm long kidney s have normal echogenicity without measurable mass or hydronephrosis. No filling defects are seen in the urina ry bladder. IMPRESSION: No hydronephrosis. Performing Organization Address [facility] Phon e Number [id number] Transfuse RBC:Transfusion Date: 11/11/2020 (11/11/2020 5:15 PM CDT)Only the most recent of10 resultswithin the time period is included.(ABNORMAL) Urinalysis with Microscopic (11/11/2020 5:06 PM CDT)Only the most recent of9 resultswithin the time period is included. Pathologist Sig karely UA WBC 5 (H) 0 - 2 /HPF [facility] UA RBC 1 0 - 2 /HPF [facility] UA Mucous NOT SEEN Not Seen-Trace /HPF [facility] UA Bacteria OCC NOT SEEN /HPF [facility] UA Squam Epi OCC None-Occasional [facility] UA Yeast 1+ (A) NOT SEEN /HPF [facility] Specimen Urine Narrative [facility] - 5:56 PM CDT Some reporting parameters within the Urinalysis test have changed due to the implementation of new in strumentation in the Main [place], allowi ng greater sensitivity of measurement. Urinalysis results reported by the [facility] using existing instrumentation, as well as Urinalysis t esting performed manually or by backup methodology at the [facility] will remain relatively unchanged. New reporting parameters and units will now be reported for all campuses. Performing Organization Address City/[facility] Phon e Number [facility] CANCER Unless otherwise noted, [address] all lab tests performed by: Division of Pathology and Laboratory Medicine [address] Sodium Urine (11/11/2020 5:06 PM CDT) Pathologist [facility] karely U Sodium 28Comment: Normal range mEq/L [facility] not available for [facility]ENTER collections less than 24 hours in duration. Specimen Urine Performing Organization Address City/[facility] Phon e Number [facility] CANCER Unless otherwise noted, [address] all lab tests performed by: Division of Pathology and Laboratory Medicine [address] [place] (ABNORMAL) Albumin Level Urine (11/11/2020 5:06 PM CDT)Only the most recent of3 resultswithin the time period is included. Pathologist [facility] Urine Albumin 3.20Comment: Normal mg/dL [facility] range note available [facility] for collections less than 24 hours in duration. U Creatinine 99.7Comment: The 40.0 - 278.0 [facility] reference range mg/dL [facility] listed is for first morning urine collection. Albumin/Creatinine 32 (H) <=29 mg/g [facility] Ratio (ACR) Comment: [facility]ENTER Reference interval: <30 mg/g Interpretive comment: The presence of increased ur inary albumin excretion (albuminuria) is a clinically sensitive and predictive indicator of chronic kidney disease. Albuminuria is determined by urinary albumin to creatinine ratio (UACR) in a random spot urine or a 24-hour collection. Normal: <30 mg/g Moderately increased: 30-300 mg/g Severely increased: >300 mg/g Specimen Urine Performing Organization Address City/[facility] Phon e Number [facility] CANCER Unless otherwise noted, [address] all lab tests performed by: Division of Pathology and Laboratory Medicine [address] [place] Urea Nitrogen Urine (11/11/2020 5:06 PM CDT) Pathologist Phuc cali U Urea 436Comment: Normal mg/dL [facility] range not available for [facility] collections less than 24 hours in duration. Specimen Urine Performing Organization Address City/[facility] Phon e Number [facility] CANCER Unless otherwise noted, [address] all lab tests performed by: Division of Pathology and Laboratory Medicine [address] [place] (ABNORMAL) Protein/Creatinine Ratio Urine (11/11/2020 5:06 PM CDT)Only the most recent of3 resultswithin the time period is included. Pathologist Marcie UTP Ran 23Comment: Normal mg/dL [facility] range not available [facility] [place] for collections less than 24 hours in duration. U Creatinine 99.7Comment: The 40.0 - 278.0 [facility] reference range mg/dL [facility] [place] listed is for first morning urine collection. U Prot/Creat 0.23 (H) <=0.14 g/g [facility] Specimen Urine Performing Organization Address City/[facility] Phon e Number [facility] CANCER Unless otherwise noted, [address] all lab tests performed by: Division of Pathology and Laboratory Medicine [address] [place] [address] [place] Creatinine Urine (11/11/2020 5:06 PM CDT) Pathologist Marcie U Creatinine 101.0Comment: The 40.0 - 278.0 [facility] reference range mg/dL [facility] listed is for first morning urine collection. Specimen Urine Performing Organization Address City/[facility] Phon e Number [facility] CANCER Unless otherwise noted, [address] all lab tests performed by: Division of Pathology and Laboratory Medicine [address] [place] [address] (ABNORMAL) Urinalysis w/Microscopic if Indicated (11/11/2020 5:06 PM CDT)Only the most recent of9 resultswithin the time period is included. Pathologist Phuc nature UA Color Yellow Straw-Yellow [facility] UA Appear Clear Clear [facility] UA Glucose NEG NEG mg/dL [facility] UA Bili NEG NEG [facility] UA Ketones NEG NEG mg/dL [facility] UA Spec Grav 1.011 1.003 - 1.035 [facility] UA Blood NEG NEG [facility] UA pH 6.0 5.0 - 9.0 [facility] UA Protein NEG NEG mg/dL [facility] UA Urobilinogen NEG NEG [facility] UA Nitrite NEG NEG [facility] UA Leuk Est Small (A) NEG [facility] Specimen Urine Performing Organization Address City/[facility] Phon e Number [facility] CANCER Unless otherwise noted, [address] all lab tests performed by: Division of Pathology and Laboratory Medicine [address] [place] [address] [place] RBC Product Ready for Mobile Disc Jockey (11/11/2020 7:00 AM CDT)Only the most recent of10 resultswithin the time period is included. Pathologist Marcie PRBC Product Ready B2 Blood [facility] for Mobile Disc Jockey BankComment: [facility] Product is ready for fiber picker on November 11, 2020 08:44:54 CDT. Specimen Blood Performing Organization Address City/[facility] Phon e Number [facility] CANCER Unless otherwise noted, [address] all lab tests performed by: Division of Pathology and Laboratory Medicine [address] [place] [address] Prepare RBC:G15 NE, 1 Units (11/11/2020 7:00 AM CDT)Only the most recent of10 resultswithin the time period is included. PRBC Product Ready 1Comment: Red Blood [facility] Cells Available - [facility]ER CENTER Order Form 03 when ready for product issue. Unit Number [id number] [facility] Product Code [id number] [facility] Unit Expiration [id number] [facility] Unit Blood Type 6200 [facility] Product Code Text RBCIRLR CPD AS1 [facility] 500mL [facility] Crossmatch [id number] [facility] Expiration Date [facility] Unit Irradiated IRRADIATED [facility] Dispense Status ISSUED [facility] Unit Blood Type A Positive [facility] Product Mobile Disc Jockey .BPAMComment: [facility] Location [facility] Specimen Blood Performing Organization Address City/[facility] Phon e Number [facility] Unless otherwise noted, [address] all lab tests performed by: Division of Pathology and Laboratory Medicine [address] [place] [address] XR Foot 3+ Views Left (11/10/2020 4:20 PM CDT) Specimen Impressions [id number] - 11/10/2020 4:48 PM CDT 1. Nonspecific soft tissue swelling. 2. Consider a small enchondroma in the d istal aspect of the proximal phalanx of the third toe with an associated partial fracture. Clinical correlation for tenderness in this region may be helpful. 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 There is a minimal step-off of the cortical surface of the medial edge of this bone at the level of this lucenc y. This finding suggests a nondisplaced, partial fracture associated with the lucent area. This would be an unusual manifestation of lymphoma, although possible. Other possibilities would include a smal l enchondroma with associated fracture a geode could be considered, but it is slightly farther from the articular surface than would be typical for a geode, and the adjacent joint actually appears sonido l. Note that the fracture is not entirel y convincing as this finding is quite subtle and visible on only one view. The soft tissues of the dorsum of the fo ot appear thickened. This can be seen with any cause of edema. There is some spurring at the joints of the midfoot dorsally. There is also spurring at the tibiota lar joint. A small posterior calcaneal s pur is noted. 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 There is a minimal step-off of the cortical surface of the medial edge of this bone at the level of this lucency. This finding suggests a nondisplaced, partial fractur e associated with the lucent area. This would be an unusual manifestation of lymphoma, although possible. Other possibilities would include a small enchondroma with associated fracture a geode could be considered, bu t it is slightly farther from the articular surface than would be typical for a geode, and the adjacent joint actually appears normal. Note that the fracture is not entirely convincing as this finding is quite subt le and visible on only one view. The soft tissues of the dorsum of the fo ot appear thickened. This can be seen with any cause of edema. There is some spurring at the joints of the midfoot dorsally. There is also spurring at the tibiotalar joint. A small posterior calcaneal spur is noted. IMPRESSION: 1. Nonspecific soft tissue swelling. 2. Consider a small enchondroma in the d istal aspect of the proximal phalanx of the third toe with an associated partial fracture. Clinical correlation for tenderness in this region may be helpful. Performing Organization Address City/State/ZIP Code Phon e Number [id number] COVID-19 (SARS-CoV-2) PCR-Asymptomatic (11/10/2020 1:41 PM CDT)Only the most recent of7 resultswithin the time period is included. COVID19 (SARS Not Detected Not Detected [facility] CoV-2) Result Comment: [facility] This test is a qualitative r everse-transcriptase polymerase chain reaction (RT- PCR) developed for the Tania MELISSA [employer] system and intended for the detection of SARS CoV-2 RNA in human nasopharyngeal specimens from patients who meet COVID-19 clinical and/or epidemiological crite jerry. This assay has been approved by the FDA for use only under Emergency Use Authorization (EUA) in laboratories that have been CLIA-certified to perform moderate-complexity and high-complexity tests. The performance characteristics of this assa y were verified by the Microbiology Laboratory at [facility], CLIA Accreditation #: [id number] and CAP Accreditation #: [id number]. Results must be interpreted within the context of all relevant clinical and laboratory findings and shou ld not form the sole basis for a diagnosis or treatment decision. "Presumptive Positive" resul ts are due to partial amplification of SARS-CoV-2 targets and indicates low amounts of virus present in the specimen at or near the limit of detection. Regardless, individuals with "Presumptive Positive" results should be managed per institutional gu idelines as individuals positive for SARS-CoV-2 virus, including use of appropriate infection control protocols. Internal controls are includ ed to assess for possible amplification inhibitors. If inhibition is detected, testing is repeated and if inhibition is confirmed the specimen is resulted as "Invalid". When an "Invalid" result occur, it is recommended to wait 3 days before submitting a new specimen for frida ting if clinically indicated. COVID19 SARS PAPER PRODUCTS INSPECTOR Swab [facility] COVID19 SARS Inpatient Admission [facility] Indication [facility] Specimen Nasopharyngeal Swab Narrative [facility] - 1 2:02 AM CDT "Hematology 7 day interval retest per In fectious Disease recommendations". Performing Organization Address City/[facility]/ZIP Code Phon e Number [facility] CANCER Unless otherwise noted, [address] all lab tests performed by: Division of Pathology and Laboratory Medicine [facility] [address] [place] TMP Interpretation Crossmatch (11/10/2020 7:55 AM CDT)Only the most recent of7 resultswithin the time period is included. Pathologist Marcie TMP XM Interp RBC units crossmatched for transfusion appear ac ceptable. [facility] Comment: [facility] MANUELA ASHLEY, Dictated by: MANUELA ASHLEY, Dictated Date/Time: 11.12.19 17:06 PM CDT Transcribed Date/Time: 11.11.2020 17:06 PM CDT Electronically Signed By: MANUELA ASHLEY, on 10.25 17:06 PM Specimen Blood Performing Organization Address City/[facility]/ZIP Code Phon e Number [facility] CANCER Unless otherwise noted, [address] all lab tests performed by: Division of Pathology and Laboratory Medicine [address] [place], [place] [address]je[place]-pierre [place] Peripheral Smr For Doc Review (11/09/2020 11:10 AM CDT) Pathologist Sig nature Peripheral Smear LILLI [facility] CANCER CE NTER Specimen Blood Performing Organization Address City/[facility]/ZIP [facility] Phon e Number [facility] CANCER Unless otherwise noted, [address] all lab tests performed by: Division of Pathology and Laboratory Medicine [address] [place] [address] [place] Blood Culture (11/09/2020 11:02 AM CDT)Only the most recent of7 resultswithin the time period is included. Pathologist Marcie Final Report No growth [facility] Path Review - Immunity and antibiotic use may render culture negative. Ongoing infection requires repeat culture. The results have been reviewed and electronically signed by Pathologist: [facility] Bottle/Isolator Mary Last MD, PhD #[id number] CANCER C ENTER Specimen Blood - PICC-Purple Lumen Narrative [facility] - 2:30 PM CDT From PICC line please Performing Organization Address City/State/ZIP Code Phon e Number [facility] CANCER Unless otherwise noted, [place] [address] CENTER all lab tests performed by: Division of Pathology and Laboratory Medicine [facility] X-ray Chest 2 Views (11/08/2020 7:42 AM CDT) Specimen Impressions [id number] - 11/08/2020 8:35 AM CDT No significant change of bilateral lung opacities that may represent pneumonia. 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 Findings: Left PICC line with its distal tip over the atriocaval junction. No significant change of lung opacities in the right upper lobe and bilateral lower lungs. No evident pneumothorax. Coronary artery bypass graft changes. Prominent cardiomediastinal silhouette i s stable. 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 Findings: Left PICC line with its distal tip over the atriocaval junction. No significant change of lung opacities in the right upper lobe and bilateral lower lungs. No evident pneumothorax. Coronary artery bypass graft changes. Prominent cardiomediastinal silhouette i s stable. IMPRESSION: No significant change of bilateral lung opacities that may represent pneumonia. Performing Organization Address City/State/[facility] Code Phon e Number [id number] VRE Culture (11/08/2020 5:56 AM CDT)Only the most recent of6 resultswithin the time period is included. Final Report No Vancomycin [facility] resistant Enterococci [facility] CENTER isolated Path Review - VRE VRE absent or below limits of detection. [facility] ... [facility]ENTER The results have been reviewed and electronically sign ed by Pathologist: Jonathon Bethea MD, PhD #[id number] Specimen Rectal Swab Performing Organization Address City/[facility]/ZIP Code Phon e Number [facility] CANCER Unless otherwise noted, [address] all lab tests performed by: Division of Pathology and Laboratory Medicine [facility] [facility] ([facility] Lower Respiratory Culture w/Gram Stain (11/07/2020 7:20 PM CDT)Only the most recent of4 resultswithin the time period is included. Final Report Moderate Yeast [facility] isolated (A) [facility] Path Review Yeast is a component of uppe r respiratory/oral jesse and may NOT be clinically significant. Recommend clinical correlation BEFORE requesting additional workup. [facility] ... [facility] [place] The results have been reviewed and electronically sign ed by Pathologist: Jonathon Bethea MD, PhD #[id number] (A) Gram Stain Report Few WBC's seen [facility] No organisms seen. [facility] (A) Specimen BAL Performing Organization Address [facility] Phon e Number [facility] Unless otherwise noted, [address] all lab tests performed by: Division of Pathology and Laboratory Medicine [address] [place] Echocardiogram 2D Limited - Follow Up (11/06/2020 2:42 PM CDT) Specimen Narrative ISCV - 11/06/2020 3:49 PM CDT Echocardiographic Report Interpretation Summary A complete two-dimensional transthoracic echocardiogram was performed (2D, M- mode, Spectral and color Doppler). Compared to prior study, there is no significant change. Normal left ventricular size and systoli c function. LV ejection fraction calculated using th e bi-plane method of disks is 58 %. The RV is dilated. The right ventricular systolic function and contractility is reduced. Injection of agitated saline documented with no evidence of an interatrial shunt. There is moderate to severe tricuspid re gurgitation. Estimated RVSP is ~40mmHg. There is no pericardial effusion. Left Ventricle: Normal left ventricular size and systoli c function. LV ejection fraction calculated using the bi-plane method of disks is 58 %. Septal motion suggests right ventricular volume overload. LAX SAX 4C 2C I WMSI = 1.00 % Normal = 1 00 Segments Size X - Cannot 2 - 1-2 small Interpret 1 - Normal Hypokine tic 3 - Akinetic 4 - Dyskinetic3- 5 moderate 5 - Aneurysmal 6-14 large 15-16 diffuse Diastology: Tissue Doppler was not obtained. Right Ventricle: The RV is dilated. The right ventricular systolic function and contractility is reduced. Atria: The left atrium is mildly dilated. Right Atrium is dilated. The intra-atrial septum motion is consistent with elevated right atrial pressure. Injection of agitated saline documented with no evidence of an interatrial shunt. Mitral Valve: The mitral valve is normal. There is mil d mitral regurgitation. Tricuspid Valve: The tricuspid valve is not well visualiz ed, but is grossly normal. There is moderate to severe tricuspid regurgitation. Estimated RVSP is ~40mmHg. Aortic Valve: The aortic valve opens well. The aortic valve is trileaflet. Pulmonic Valve: The pulmonic valve is not well visualize d. Great Vessels: The aortic root is normal size. The infe rior vena cava is dilated with decreased respiratory variation. Pericardium/Pleural: There is no pericardial effusion. Preliminary Reviewer Smitha Reece MD. MMode/2D Measurements IVSd: 0.87 cm LVIDd: 5.1 cm LVIDs: 4.2 cm LVPWd: 1.0 cm FS: 18.0 % Ao root diam: 3.7 cm Ao root area: 10.7 cm2 LA dimension: 5.2 cm LVOT diam: 2.2 cm EDV(MOD-A4C): 115.6 ml ESV(MOD-A4C): 48.7 ml LVOT area: 3.8 cm2 EF(MOD-A4C): 57.8 % EDV(MOD-A2C): 171.3 ml ESV(MOD-A2C): 78.8 ml EDV(MOD-bp): 147.8 ml EF(MOD-A2C): 54.0 % ESV(MOD-bp): 61.5 ml EF(MOD-bp): 58.4 % LAV(MOD-A2C): 70.8 ml LAV(MOD-A4C): 62.3 ml EDV (MOD-bp) Index: 73.1 ml/m2 LAV(MOD-bp): 69.7 ml LAV(MOD-bp) Indexed: 34.5 ml/m2 ESV (MOD-bp) Index: 30.4 ml/m2 RWT: 0.40 cm TAPSE (>1.6): 1.4 cm Doppler Measurements TR max rodriguez: 253.4 cm/sec RAP systole: 15.0 mmHg TR max P.7 mmHg RVSP(TR): 40.7 mmHg 58 Procedure Note Mishel Tijerina MD - 11/06/2020 Echocardiographic Report Interpretation Summary A complete two-dimensional transthoracic echocardiogram was performed (2D, M- mode, Spectral and color Doppler). Compared to prior study, there is no significant change. Normal left ventricular size and systoli c function. LV ejection fraction calculated using th e bi-plane method of disks is 58 %. The RV is dilated. The right ventricular systolic function and contractility is reduced. Injection of agitated saline documented with no evidence of an interatrial shunt. There is moderate to severe tricuspid re gurgitation. Estimated RVSP is ~40mmHg. There is no pericardial effusion. Left Ventricle: Normal left ventricular size and systoli c function. LV ejection fraction calculated using the bi-plane method of disks is 58 %. Septal motion suggests right ventricular volume overload. LAX SAX 4C 2C I WMSI = 1.00 % Normal = 100 Segments Size X - Cannot 2 - 1-2 small Interpret 1 - Normal Hypokinetic 3 - Akinetic 4 - Dyskinetic3-5 moderate 5 - Aneurysmal 6-14 large 15-16 diffuse Diastology: Tissue Doppler was not obtained. Right Ventricle: The RV is dilated. The right ventricular systolic function and contractility is reduced. Atria: The left atrium is mildly dilated. Right Atrium is dilated. The intra-atrial septum motion is consistent with elevated right atrial pressure. Injection of agitated saline documented with no evidence of an interatrial shunt. Mitral Valve: The mitral valve is normal. There is mil d mitral regurgitation. Tricuspid Valve: The tricuspid valve is not well visualiz ed, but is grossly normal. There is moderate to severe tricuspid regurgitation. Estimated RVSP is ~40mmHg. Aortic Valve: The aortic valve opens well. The aortic valve is trileaflet. Pulmonic Valve: The pulmonic valve is not well visualize d. Great Vessels: The aortic root is normal size. The infe rior vena cava is dilated with decreased respiratory variation. Pericardium/Pleural: There is no pericardial effusion. Preliminary Reviewer Smitha Reece MD. MMode/2D Measurements IVSd: 0.87 cm LVIDd: 5.1 cm LVIDs: 4.2 cm LVPWd: 1.0 cm FS: 18.0 % Ao root raudel m: 3.7 cm Ao root are a: 10.7 cm2 LA dimensio n: 5.2 cm LVOT diam: 2.2 cm EDV(MOD-A4C ): 115.6 ml ESV(MOD-A4C ): 48.7 ml LVOT area: 3.8 cm2 EF(MOD-A4C) : 57.8 % EDV(MOD-A2C): 171.3 ml ESV(MOD-A2C): 78.8 ml EDV(MOD-bp) : 147.8 ml EF(MOD-A2C): 54.0 % ESV(MOD-bp) : 61.5 ml EF(MOD-bp): 58.4 % LAV(MOD-A2C): 70.8 ml LAV(MOD-A4C): 62.3 ml EDV (MOD-bp ) Index: 73.1 ml/m2 LAV(MOD-bp): 69.7 ml LAV(MOD-bp) Indexed: 34.5 ml/m2 ESV (MOD-bp) Index: 30.4 ml/m2 RWT: 0.40 c m TAPSE (>1.6): 1.4 cm Doppler Measurements TR max rodriguez: 253.4 cm/sec RAP systole: 15.0 mmHg TR max P.7 mmHg RVSP(TR): 40.[address] [facility] Organization Address City/State/ZIP Code Phon e Number ISCV X-ray Chest 1 View (11/05/2020 3:44 PM CDT)Only the most recent of4 results within the time period is included. Specimen Impressions [id number] - 11/05/2020 4:06 PM CDT Persistent right upper lobe pneumonia. 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 Findings: Left PICC terminates in SVC. No pleural abnormalities. Low lung volumes with persistent pneumonia in the right upper lobe and atelectasis versus pneumonia in the left lower lobe. 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 Findings: Left PICC terminates in SVC. No pleural abnormalities. Low lung volumes with persistent pneumonia in the right upper lobe and atelectasis versus pneumonia in the left lower lobe. IMPRESSION: Persistent right upper lobe pneumonia. Performing Organization Address City/[facility] Code Phon e Number [id number] (ABNORMAL) POC Glucose Screen (11/03/2020 11:28 PM CDT)Only the most recent of 177 resultswithin the time period is included. POC Glucose 144 (H) 70 - 99 mg/dL POC [facility] Comment: RN Notified Capillary blood samples, e.g . obtained by fingerstick, may have inaccurate results in patients with decreased peripheral blood flow. Method description: All resu lts are measured using Electrochemistry test methodology. The glucose in the sample mixes with the reagents on the test strip. The reaction produces an electric current. The amount of current produced is proportional to the glucose concentration in the blood. PO Sample Type Capillary POC [facility] Performing Lab [facility] HospitalComment: POC T[facility], [address] [place] [address], [place] [address]; Assembly [employer] Robot Operator: Yomaira Johnson MD Specimen Blood Performing Organization Address City/State/ZIP Code Phon e Number POC T[facility] Right Heart Cath (11/02/2020 10:17 AM CDT) Specimen Narrative This result has an attachment that is no t available. (ABNORMAL) POC Oximetry Venous (11/02/2020 10:00 AM CDT)Only the most recent of2 resultswithin the time period is included. POC O2 75.8 % POC [facility] Saturation,Venous POC Oxyhemoglobin, 73.7 % POC [facility] Venous POC Hemoglobin, total 8.8 (L) 13.5 - POC [facility] 17.5 g/dL POC Carboxyhemoglobin 0.7 0.0 - 1.9 POC [facility] % POC Methemoglobin 2.0 (H) 0.0 - 1.5 POC [facility] Comment: % Method description: The ABL8 0 FLEX CO-OX OSM analyzer is a portable, automated analyzer that measures oxygen saturation (sO2), concentration of total hemoglobin (ctHb), fraction of oxygenated hemoglobin in total hemoglobin (FO2Hb), fraction of methemoglobin in total hemog lobin (FMetHb), and fraction of carboxyhemoglobin in total hemoglobin (FCOHb) co-oximetry parameters in whole blood. The analyzer uses spectrophotometry to perform quantitati ve measurement of the parameters listed from a 65l sample. POC OX Draw Site Main pulm art POC [facility] Performing Lab [facility] HospitalComment: POC TEL[facility], [address] [place] [address]; Assembly Line Robot Operator: Yomaira Johnson MD Specimen Blood Performing Organization Address City/[facility] Code Phon e Number POC TELCOR Immature Platelet Fraction (11/02/2020 4:41 AM CDT) Pathologist Sig nature IPF 5.9 0.8 - 6.2 % [facility] Specimen Blood Narrative [facility] - 5:14 AM CDT For patients with Platelets lower than 1 00 k/mm3 Performing Organization Address City/[facility]/ZIP Code Phon e Number [facility] CANCER Unless otherwise noted, [address] all lab tests performed by: Division of Pathology and Laboratory Medicine [address] [place] [address] Retic Auto (11/02/2020 4:41 AM CDT) Pathologist Sig nature Retic Cnt Auto 0.6 0.5 - 1.5 % [facility] RETHE 37.5 23.2 - 37.5 pg [facility] IRF 16.3 2.3 - 18.0 % [facility] Specimen Blood Narrative [facility] - 5:14 AM CDT For patients with Platelets lower than 1 00 k/mm3 Performing Organization Address City/State/ZIP Code Phon e Number [facility] CANCER Unless otherwise noted, [address] all lab tests performed by: Division of Pathology and Laboratory Medicine [address] [place] (ABNORMAL) NT-Pro BNP (In-House) (10/31/2020 4:13 AM CDT)Only the most recent of3 resultswithin the time period is included. Pathologist Sig nature NT ProBNP 3,919 (H) <=125 pg/mL [facility] Specimen Blood Performing Organization Address City/State/ZIP Code Phon e Number [facility] CANCER Unless otherwise noted, [address] all lab tests performed by: Division of Pathology and Laboratory Medicine [address] [place] Echocardiogram 2D Complete (10/29/2020 11:59 AM CDT) [facility]imen [facility]ative [facility] 10/29/2020 2:13 PM CDT Echocardiographic Report Interpretation Summary A complete two-dimensional transthoracic echocardiogram was performed (2D, M- mode, Spectral and color Doppler). Compared to prior study, there is no significant change. Normal left ventricular size and systoli c function. LV ejection fraction (LVEF) is in the ra nge of 55% (calculated by method of discs). The right ventricle ( RV ) is dilated. T he right ventricular systolic function and contractility is reduced. Septal motion suggests right ventricular volume overload. Right Atrium is dilated. There is severe tricuspid regurgitation. Severity of tricuspid insufficiency prec ludes reliable non-invasive measurement of RVSP. There is no pericardial effusion. Left Ventricle: Normal left ventricular size and systoli c function. There is no thrombus. There is normal left ventricular wall thickness. LV ejection fraction (LVEF) is in the range of 55% (calculated by method of dis cs). Septal motion suggests right ventri cular volume overload. I WMSI = 1.00 % Normal = 1 00 Segments Size X - Cannot 2 - 1-2 small Interpret 1 - Normal Hypokine tic 3 - Akinetic 4 - Dyskinetic3- 5 moderate 5 - Aneurysmal 6-14 large 15-16 diffuse Diastology: Indeterminate. Right Ventricle: The RV is dilated. The right ventricular systolic function and contractility is reduced. Atria: The left atrial size is normal. Right At rium is dilated. Mitral Valve: The mitral valve is grossly normal. Ther e is trace mitral regurgitation. Tricuspid Valve: The tricuspid valve is not well visualiz ed, but is grossly normal. There is severe tricuspid regurgitation. Severity of tricuspid insufficiency precludes reliable non-invasive measurement of RVSP. Aortic Valve: The aortic valve is trileaflet. The aort ic valve opens well. Mild thickening changes are noted. Pulmonic Valve: The pulmonic valve is not well visualize d. Trace pulmonic valvular regurgitation. Great Vessels: The aortic root is normal size. The infe rior vena cava is dilated with decreased respiratory variation. Pericardium/Pleural: There is no pericardial effusion. Preliminary Reviewer Smitha Reece MD. MMode/2D Measurements IVSd: 0.94 cm LVIDd: 5.3 cm LVIDs: 3.7 cm LVPWd: 0.89 cm FS: 30.8 % Ao root diam: 3.4 cm Ao root area: 9.2 cm2 LA dimension: 4.7 cm LVOT diam: 2.3 cm EDV(MOD-A4C): 115.8 ml ESV(MOD-A4C): 50.4 ml LVOT area: 4.3 cm2 EF(MOD-A4C): 56.5 % EDV(MOD-A2C): 111.2 ml ESV(MOD-A2C): 49.3 ml EDV(MOD-bp): 113.6 ml EF(MOD-A2C): 55.7 % ESV(MOD-bp): 50.6 ml EF(MOD-bp): 55.4 % LAV(MOD-A2C): 61.7 ml LAV(MOD-A4C): 52.4 ml EDV (MOD-bp) Index: 53.2 ml/m2 LAV(MOD-bp): 59.5 ml LAV(MOD-bp) Indexed: 27.9 ml/m2 ESV (MOD-bp) Index: 23.7 ml/m2 RWT: 0.34 cm TAPSE (>1.6): 2.3 cm Doppler Measurements MV E max ordriguez: 106.1 cm/sec MV V2 max: 111.5 cm/sec MV A max rodriguez: 73.3 cm/sec MV max P.0 mmHg MV E/A: 1.4 MV V2 mean: 53.8 cm/sec MV mean P.4 mmHg MV V2 VTI: 26.3 cm MVA(VTI): 3.1 cm2 MV P1/2t max rodriguez: 106.6 cm/sec Ao V2 max: 127.7 cm/sec MV P1/2t: 50.5 msec Ao max P.5 mmHg MVA(P1/2t): 4.4 cm2 Ao V2 mean: 77.6 cm/sec Ao mean P.8 mmHg MV dec slope: 617.8 cm/sec2 Ao V2 VTI: 22.4 cm IBNU(I,D): 3.6 cm2 BINU(V,D): 3.7 cm2 LV V1 max P.7 mmHg SV(LVOT): 80.3 ml LV V1 mean P.1 mmHg LV V1 max: 108.7 cm/sec LV V1 mean: 66.7 cm/sec LV V1 VTI: 18.5 cm TR max rodriguez: 273.7 cm/sec RAP systole: 15.0 mmHg TR max P.0 mmHg RVSP(TR): 45.0 mmHg BINU Index (I,D): 1.7 BINU Index (V,D): 1.7 Dimensionless Index: 0.85 E/e' (avg): 10.6 E/e' (lat): 7.9 E/e' (sept): 15.9 Procedure Note George Felder MD - 10/29/2020 Echocardiographic Report Interpretation Summary A complete two-dimensional transthoracic echocardiogram was performed (2D, M- mode, Spectral and color Doppler). Compared to prior study, there is no significant change. Normal left ventricular size and systoli c function. LV ejection fraction (LVEF) is in the ra nge of 55% (calculated by method of discs). The right ventricle ( RV ) is dilated. T he right ventricular systolic function and contractility is reduced. Septal motion suggests right ventricular volume overload. Right Atrium is dilated. There is severe tricuspid regurgitation. Severity of tricuspid insufficiency prec ludes reliable non-invasive measurement of RVSP. There is no pericardial effusion. Left Ventricle: Normal left ventricular size and systoli c function. There is no thrombus. There is normal left ventricular wall thickness. LV ejection fraction (LVEF) is in the range of 55% (calculated by method of discs). Septal motion suggests right ventricular volume overload. I WMSI = 1.00 % Normal = 100 Segments Size X - Cannot 2 - 1-2 small Interpret 1 - Normal Hypokinetic 3 - Akinetic 4 - Dyskinetic3-5 moderate 5 - Aneurysmal 6-14 large 15-16 diffuse Diastology: Indeterminate. Right Ventricle: The RV is dilated. The right ventricular systolic function and contractility is reduced. Atria: The left atrial size is normal. Right At rium is dilated. Mitral Valve: The mitral valve is grossly normal. Ther e is trace mitral regurgitation. Tricuspid Valve: The tricuspid valve is not well visualiz ed, but is grossly normal. There is severe tricuspid regurgitation. Severity of tricuspid insufficiency precludes reliable non-invasive measurement of RVSP. Aortic Valve: The aortic valve is trileaflet. The aort ic valve opens well. Mild thickening changes are noted. Pulmonic Valve: The pulmonic valve is not well visualize d. Trace pulmonic valvular regurgitation. Great Vessels: The aortic root is normal size. The infe rior vena cava is dilated with decreased respiratory variation. Pericardium/Pleural: There is no pericardial effusion. Preliminary Reviewer Smitha Reece MD. MMode/2D Measurements IVSd: 0.94 cm LVIDd: 5.3 cm LVIDs: 3.7 cm LVPWd: 0.89 cm FS: 30.8 % Ao root raudel m: 3.4 cm Ao root are a: 9.2 cm2 LA dimensio n: 4.7 cm LVOT diam: 2.3 cm EDV(MOD-A4C ): 115.8 ml ESV(MOD-A4C ): 50.4 ml LVOT area: 4.3 cm2 EF(MOD-A4C) : 56.5 % EDV(MOD-A2C): 111.2 ml ESV(MOD-A2C): 49.3 ml EDV(MOD-bp) : 113.6 ml EF(MOD-A2C): 55.7 % ESV(MOD-bp) : 50.6 ml EF(MOD-bp): 55.4 % LAV(MOD-A2C): 61.7 ml LAV(MOD-A4C): 52.4 ml EDV (MOD-bp ) Index: 53.2 ml/m2 LAV(MOD-bp): 59.5 ml LAV(MOD-bp) Indexed: 27.9 ml/m2 ESV (MOD-bp) Index: 23.7 ml/m2 RWT: 0.34 c m TAPSE (>1.6): 2.3 cm Doppler Measurements MV E max rodriguez: 106.1 cm/sec MV V2 max: 111.5 cm/sec MV A max rodriguez: 73.3 cm/sec MV max P.0 mmHg MV E/A: 1.4 MV V2 mean: 53.8 cm/sec MV mean P.4 mmHg MV V2 VTI: 26.3 cm MVA(VTI): 3.1 cm2 MV P1/2t max rodriguez: 106.6 cm/sec Ao V2 max: 127.7 cm/sec MV P1/2t: 50.5 msec Ao max P.5 mmHg MVA(P1/2t): 4.4 cm2 Ao V2 mean: 77.6 cm/sec Ao mean P.8 mmHg MV dec slope: 617.8 cm/sec2 Ao V2 VTI: 22.4 cm BINU(I,D): 3.6 cm2 BINU(V,D): 3.7 cm2 LV V1 max P.7 mmHg SV(LVOT): 80.3 ml LV V1 mean P.1 mmHg LV V1 max: 108.7 cm/sec LV V1 mean: 66.7 cm/sec LV V1 VTI: 18.5 cm TR max rodriguez: 273.7 cm/sec RAP systole: 15.0 mmHg TR max P.0 mmHg RVSP(TR): 45.0 mmHg BINU Index (I,D): 1.7 BINU Index (V,D): 1.7 Dimensionless Index: 0.85 E/e' (avg): 10.6 E/e' (lat): 7.9 E/e' (sept): 15.9 Performing Organization Address City/State/ZIP Code Phon e Number ISCV XR Chest 1 View Portable (10/28/2020 10:46 AM CDT)Only the most recent of18 resultswithin the time period is included. Specimen Impressions [id number] - 10/28/2020 11:41 AM CDT Stable masslike opacity in the right upper lobe. Bibasilar opacities may represent atelectasis, pneumonia and/or aspiration. 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 Findings: Median sternotomy wires. Unchanged support apparatus. Stable cardiomediastinal silhouette. Persistent masslike consolidation in the right upper lobe. Low lung volumes with bibasilar opacities that may represent atelectasis, pneumonia and/or aspiration. No evidence of pneumothorax. 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 Findings: Median sternotomy wires. Unchanged support apparatus. Stable cardiomediastinal silhouette. Persistent masslike consolidation in the right upper lobe. Low lung volumes with bibasilar opacities that may represent atelectasis, pneumonia and/or aspiration. No evidence of pneumothorax. IMPRESSION: Stable masslike opacity in the right upp er lobe. Bibasilar opacities may represent atelectasis, pneumonia and/or aspiration. Performing Organization Address City/State/ZIP Code Phon e Number [id number] EKG, 12-Lead (Portable) (10/28/2020)Only the most recent of9 resultswithin the time period is included. Specimen Narrative This result has an attachment that is no t available. Performing Organization Address City/State/ZIP Code Phon e Number [id number] IECG Urine Culture (10/27/2020 12:22 PM CDT)Only the most recent of4 resultswithin the time period is included. Final Report No growth [facility] [place] Path Review - The results have been review ed and electronically signed by Pathologist: [facility] Urine Mary Last MD, PhD #[id number] [facility] ER Specimen Urine, Catherized Page Performing Organization Address City/[facility]/ZIP [facility] Phon e Number [facility] CANCER Unless otherwise noted, [address] all lab tests performed by: Division of Pathology and Laboratory Medicine [address] [place] [address] Tobramycin Random (10/27/2020 9:55 AM CDT) Pathologist Sig nature Tobra Lvl <0.43 mcg/mL [facility] Comment: [facility] No reference ranges establis hed for random levels, please refer to trough and/or peak levels provided: Toxic random level: >10 mcg/mL Therapeutic Trough Level: <=2 mcg/mL Toxic Trough Level: >2 mcg/mL Therapeutic Peak Level: 5-10 mcg/mL Toxic Peak Level: >10 mcg/mL Tobra Ds Dt 10/27/2020 [facility] Comment: [facility] Level, date, and time of previous dose is not availabl e for this sample. The date reported is the sample collection date. Tobra Ds Tm see note [facility] Comment: [facility] Level, date, and time of previous dose is not availabl e for this sample. The date reported is the sample collection date. Specimen Blood Narrative [facility] - 11:34 AM CDT Please draw 30 minutes before dose is du e on 10/27 at 11am Performing Organization Address City/[facility] Phon e Number [facility] CANCER Unless otherwise noted, [address] all lab tests performed by: Division of Pathology and Laboratory Medicine [address] [place] [address] HBV DNA Quant (10/27/2020 3:32 AM CDT)Only the most recent of2 resultswithin the time period is included. HBV DNA [facility] Undetected Undetected IU/mL [facility] Comment: [facility] Result in log IU/mL is Undetected. ADDITIONAL INFORMATION ------ The quantification range of this assay is 10 to 1,000,000,000 IU/mL (1.00 log to 9.00 log IU/mL). Test ing was performed using the melissa HBV test ([employer] with the melissa [id number] System. Test Performed by: [facility] [address] [place] [address] Assembly Line Robot Operator: Alonso Neville M.D. Ph.D.; CLIA# [id number] Specimen Blood Performing Organization Address City/[facility] Hospital/ZIP Code Phon e Number [facility] Unless otherwise noted, [address] all lab tests performed by: Division of Pathology and Laboratory Medicine [address] [place] [address] (ABNORMAL) Ferritin Level (10/27/2020 3:32 AM CDT)Only the most recent of10 resultswithin the time period is included. Pathologist Sig nature Ferritin Lvl 899 (H) 30 - 400 ng/mL [facility] Specimen Blood Performing Organization Address City/[facility] Phon e Number [facility] Unless otherwise noted, [address] all lab tests performed by: Division of Pathology and Laboratory Medicine [address] [place] [address] US Leg Venous Doppler Bilateral (10/23/2020 1:44 PM CDT) Specimen Impressions [id number] - 10/23/2020 2:49 PM CDT Negative for deep venous thrombosis in t he bilateral lower extremities. 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 Comparison: CT 10/21/2020 is available fo r correlation Technique: Grayscale and color/spectral Doppler ultrasound of the bilateral lower extremity veins was performed. Exam limitations: Bandage for left femor al catheter obscures visualization of the left common femoral, greater saphenous vein junction and proximal femoral vein, precluding their evaluation. Findings: Left: The left common femoral, greater s aphenous vein junction, and proximal segment of the left femoral vein were not visualized, as they were covered by overlying bandage. The mid and distal segments of the femoral vein and popliteal veins demonstrate color flow, compressibility, and response to augmentation. The visualized posterior tibial, peroneal and anterior tibial veins are patent and compressible. Right: The right common femoral, proxima l greater saphenous vein junction, femoral, and popliteal veins demonstrate color flow, compressibility, and response to augmentation. The visualized posterior ti bial, peroneal and anterior tibial veins are patent and compressible. 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 Comparison: CT 10/21/2020 is available fo r correlation Technique: Grayscale and color/spectral Doppler ultrasound of the bilateral lower extremity veins was performed. Exam limitations: Bandage for left femor al catheter obscures visualization of the left common femoral, greater saphenous vein junction and proximal femoral vein, precluding their evaluation. Findings: Left: The left common femoral, greater s aphenous vein junction, and proximal segment of the left femoral vein were not visualized, as they were covered by overlying bandage. The mid and distal segments of the femoral vein and popliteal veins demonst rate color flow, compressibility, and response to augmentation. The visualized posterior tibial, peroneal and anterior tibial veins are patent and compressible. Right: The right common femoral, proxima l greater saphenous vein junction, femoral, and popliteal veins demonstrate color flow, compressibility, and response to augmentation. The visualized posterior tibial, peroneal and anterior tibial veins are patent and com pressible. IMPRESSION: Negative for deep venous thrombosis in t he bilateral lower extremities. Performing Organization Address City/State/ZIP Code Phon e Number [id number] XR Abdomen 1 View Portable (10/23/2020 12:11 PM CDT)Only the most recent of7 resultswithin the time period is included. Specimen Impressions [id number] - 10/23/2020 12:52 PM CDT NG tube side-port overlying the gastric fundus and is appropriately positioned. 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 IMPRESSION: NG tube side-port overlying the gastric fundus and is appropriately positioned. Performing Organization Address City/State/ZIP Code Phon e Number [id number] CT Chest without Contrast (10/22/2020 8:09 AM CDT) Specimen Impressions [id number] - 10/22/2020 8:28 AM CDT Right upper lobe masslike opacity and bilateral patchy groundglass lung opacities, likely infectious/inflammatory. Small bilateral pleural effusions, right greater than the left. Interval decrease of left axillary adeno evelyne. 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 Findings: Right upper lobe masslike opacity with c entral low-attenuation. Bilateral patchy groundglass lung opacities. Bilateral emphysematous lung changes. New small bilateral pleural effusions, r ight greater than the left. Subcentimeter mediastinal nodes, likely reactive. Markedly interval decrease of left axillary adenopathy measuring up to 0.8 cm compared to 3.3 cm. Thoracic aorta and pulmonary artery with normal caliber. Coronary artery bypass graft changes. Atherosclerosis of the aorta and [place] coronary arteries. Left PICC line with its distal tip in the right atrium. Cardiomegaly. No evidence of pericardial effusion. The adrenal glands are incompletely imag ed. Small ascites. Splenic calcified granulomas. Nasogastric tube with its distal tip in the stomach. Degenerative change of the thoracic spin e. 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 Findings: Right upper lobe masslike opacity with c entral low-attenuation. Bilateral patchy groundglass lung opacities. Bilateral emphysematous lung changes. New small bilateral pleural effusions, r ight greater than the left. Subcentimeter mediastinal nodes, likely reactive. Markedly interval decrease of left axillary adenopathy measuring up to 0.8 cm compared to 3.3 cm. Thoracic aorta and pulmonary artery with normal caliber. Coronary artery bypass graft changes. Atherosclerosis of the aorta and [place] coronary arteries. Left PICC line with its distal tip in the right atrium. Cardiomegaly. No evidence of pericardial effusion. The adrenal glands are incompletely imag ed. Small ascites. Splenic calcified granulomas. Nasogastric tube with its distal tip in the stomach. Degenerative change of the thoracic spin e. IMPRESSION: Right upper lobe masslike opacity and bi lateral patchy groundglass lung opacities, likely infectious/inflammatory. Small bilateral pleural effusions, right greater than the left. Interval decrease of left axillary adeno evelyne. Performing Organization Address City/State/ZIP Code Phon e Number [id number] Gastrointestinal Multiplex Panel (10/21/2020 1:49 PM CDT) Campylobacter Not Detected Not Detected [facility] C difficile DNA (GI Refer to [facility] Multi Panel) separate [facility] difficile DNA Assay for results Plesiomonas shigelloides Not Detected Not Detected [facility] Salmonella Not Detected Not Detected [facility] Vibrio Not Detected Not Detected [facility] Vibrio cholerae Not Detected Not Detected [facility] Yersinia enterocolitica Not Detected Not Detected [facility] Enteroaggregative E. Not Detected Not Detected [facility] coli (EAEC) [facility] Enteropathogenic E. coli Not Detected Not Detected [facility] (EPEC) [facility] Enterotoxigenic E. coli Not Detected Not Detected [facility] (ETEC) [facility] Shiga-like Not Detected Not Detected [facility] toxin-producing E. col [facility] (STEC) E. coli O157 Not Applicable Not Detected [facility] Shigella/Enteroinvasive Not Detected Not Detected [facility] E. coli (EIEC) [facility] Cryptosporidium Not Detected Not Detected [facility] Cyclospora cayetanensis Not Detected Not Detected [facility] Entamoeba histolytica Not Detected Not Detected [facility] Giardia lamblia Not Detected Not Detected [facility] Adenovirus F 40/41 Not Detected Not Detected [facility] Astrovirus Not Detected Not Detected [facility] Norovirus GI/GII Not Detected Not Detected [facility] Rotavirus A Not Detected Not Detected [facility] Sapovirus (I, II, IV and Not Detected Not Detected [facility] V) [facility] Specimen Stool Performing Organization Address City/State/ZIP Code Phon e Number [facility] Unless otherwise noted, [place], [place] [id number] [place] [address] all lab tests performed by: Division of Pathology and Laboratory Medicine [address] [place] [address] Gastrointestinal Multiplex Panel Path Review (10/21/2020 1:49 PM CDT) Pathologist Sig nature GIMP NC No diarrheal pathogens detec jigar by multiplex nucleic acid detection. A negative result does not rule-out the possibility of a diarrheal pathogen not are detected by this panel. Non-infectious causes of diarrhea should also be considered. [facility] ..[facility] Reviewed and Electronically signed by Pathologist: Jonathon Bethea MD, PhD #[id number] Comment: Performed by real-time PCR m ethodology. This assay detects the presence of nucleic acid (DNA or RNA) for the pathogens reported. A result of "Not Detected" does not exclude the possibility of the presen ce of one or more of the pathogens at less than the detection limits of this assay. The results of the GI Panel should be considered presumptive. Clinical correlation is recommended. JONATHON BETHEA MD, PhD - [id number] Dictated by: JONATHON BETHEA MD, PhD - [id number] Dictated Date/Time: 10.24.19 15:12 PM CDT Transcribed Date/Time: 10.23.2020 15:12 PM CDT Electronically Signed By: DANNY BETHEA MD, PhD - [id number] on 10.23.2020 15:12 PM Specimen Stool Performing Organization Address City/State/ZIP Code Phon e Number [facility] CANCER Unless otherwise noted, [address] all lab tests performed by: Division of Pathology and Laboratory Medicine [place] Clostridium Difficile DNA Path Review (10/21/2020 1:49 PM CDT) C diff DNA NC C. difficile EIA is performe d only on stools positive for C. difficile DNA and detects the presence of C. difficile toxin proteins via a rapid immunoassay. Patients positive for BOTH C. difficile DNA and EIA are more likely to have a C. difficile [facility] infection. [facility]ER CENTER ... Reviewed and Electronically signed by Pathologist: Jonathon Bethea MD, PhD #[id number] Comment: C. difficile Toxin DNA (Prim kelly Method) is a nucleic acid amplification test (NAAT) intended for the qualitative detection of bacterial DNA from toxigenic strains of Clostridium difficile. Reference Range: DNA Negative Rapid immunoassay method is performed on positive PCR samples. Clostridium Difficile Toxin Assay (Reflex Method) performed by rapid immunoassay for the detection of Clostridium difficile toxins A and B in stool specimens. Reference Range: Negative When invalid results are obt ained by either the primary or reflex method, a new specimen should be collected for repeat testing. JONATHON BETHEA MD, PhD - [id number] Dictated by: JONATHON BETHEA MD, PhD - [id number] Dictated Date/Time: 10.24.19 14:51 PM CDT Transcribed Date/Time: 10.23.2020 14:51 PM CDT Electronically Signed By: DANNY BETHEA MD, PhD - [id number] on 10.23.2020 14:51 PM Specimen Stool Performing Organization Address City/State/ZIP [facility] Phon e Number [facility] Unless otherwise noted, [address] all lab tests performed by: Division of Pathology and Laboratory Medicine [facility] [place] (ABNORMAL) Clostridium Difficile DNA Assay (10/21/2020 1:49 PM CDT) C difficile DNA Positive (A) Negative [facility] C difficle Toxin EIA Positive (A) Negative [facility] C difficile C. difficile EIA is performe d only on stools positive for C. difficile DNA and detects the presence of C. difficile toxin proteins via a rapid immunoassay. Patients positive for BOTH C. difficile DNA and EIA are more likely to have a C. difficile [facility] Interpretation infection. [facility] CENTER Specimen Stool Performing Organization Address City/State/ZIP Code Phon e Number [facility] CANCER Unless otherwise noted, [place] [address] [place] all lab tests performed by: Division of Pathology and Laboratory Medicine [address] Abdomen Pelvis without Contrast (10/21/2020 12:16 AM CDT) Specimen Impressions [id number] - 10/21/2020 10:11 AM CDT Very limited examination due to lack of intravenous and oral contrast and presence of motion artifacts and artifacts from the position of the arms of the patient along the body. With that in consideration: 1. Small right pleural effusion. 2. Ascites. 3. Anasarca. 4. Cardiomegaly. 5. An elongated segment of bowel that ap pears to be the appendix in the right lower quadrant ostomy is slightly prominent and this is a nonspecific finding. Please correlate clinically to exclude the possibility of an early mild acute appendicitis. 6. Findings discussed with the ISAI Gurrola by Dr. Cheney I personally reviewed these image(s) shala ng with the resident's/fellow's interpretations, certify that if a procedure was performed I was physically present, and agree with the final report. 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 Findings: Very limited examination due to lack of intravenous and oral contrast and presence of motion artifacts and artifacts from the position of the arms of the patient along the body. Limited images of the lung bases show ne w small right pleural effusion. Cardiomegaly. Relative hypodensity of intracardiac blo od pool suggestive of anemia. Liver: Mild perihepatic ascites. Limited evaluation of the hepatic parenchyma. Gallbladder: Sludge. Limited evaluation of the gallbladder. Spleen: Splenic granulomata. Limited evaluation of the pancreas. Some thickening of the adrenal glands. Limited evaluation of the kidneys. No hydronephrosis. Atherosclerotic calcifications of the ab dominal aorta and its branches. Page catheter within the bladder Bowel: Enteric tube terminates in the ga stric fundus. Elongated segment of bowel in the right upper quadrant that appears to represent the appendix is minimally prominent measuring 9 mm in diameter and this is a nonspecific finding. Please correlate clinic ally to exclude the possibility of an ea rly mild acute appendicitis. Vessels: Left femoral central venous cat heter tip terminating in the common iliac vein. Small volume of pelvic free fluid Diffuse edema of the subcutaneous tissue representing anasarca. .Extensive degenerative changes of the t horacic and lumbar spine. 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 Findings: Very limited examination due to lack of intravenous and oral contrast and presence of motion artifacts and artifacts from the position of the arms of the patient along the body. Limited images of the lung bases show ne w small right pleural effusion. Cardiomegaly. Relative hypodensity of intracardiac blo od pool suggestive of anemia. Liver: Mild perihepatic ascites. Limited evaluation of the hepatic parenchyma. Gallbladder: Sludge. Limited evaluation of the gallbladder. Spleen: Splenic granulomata. Limited evaluation of the pancreas. Some thickening of the adrenal glands. Limited evaluation of the kidneys. No hydronephrosis. Atherosclerotic calcifications of the ab dominal aorta and its branches. Page catheter within the bladder Bowel: Enteric tube terminates in the ga stric fundus. Elongated segment of bowel in the right upper quadrant that appears to represent the appendix is minimally prominent measuring 9 mm in diameter and this is a nonspecific finding. Please correlate clinically to exclude the possibility of an early mild acute a ppendicitis. Vessels: Left femoral central venous cat heter tip terminating in the common iliac vein. Small volume of pelvic free fluid Diffuse edema of the subcutaneous tissue representing anasarca. .Extensive degenerative changes of the t horacic and lumbar spine. Left total hip arthroplasty IMPRESSION: Very limited examination due to lack of intravenous and oral contrast and presence of motion artifacts and artifacts from the position of the arms of the patient along the body. With that in consideration: 1. Small right pleural effusion. 2. Ascites. 3. Anasarca. 4. Cardiomegaly. 5. An elongated segment of bowel that ap pears to be the appendix in the right lower quadrant ostomy is slightly prominent and this is a nonspecific finding. Please correlate clinically to exclude the possibility of an early mild acute appendicitis. 6. Findings discussed with the MARINE MAMMAL TRAINERNuris Gurrola by Dr. Cheney I personally reviewed these image(s) shala ng with the resident's/fellow's interpretations, certify that if a procedure was performed I was physically present, and agree with the final report. Performing Organization Address City/State/ZIP Code Phon e Number [id number] Lactic Acid, Venous (10/19/2020 4:25 AM CDT)Only the most recent of42 results within the time period is included. Pathologist Sig nature V Lactate 0.8 0.5 - 1.6 mmol/L [facility] CANCER CE NTER Specimen Blood Performing Organization Address City/State/ZIP Code Phon e Number [facility] CANCER Unless otherwise noted, [place] [address] [place] all lab tests performed by: Division of Pathology and Laboratory Medicine [facility]5 Hemphilljean-pierre Jay (ABNORMAL) Complete Blood Count w/o Differential (10/19/2020 4:25 AM CDT)Only the most recent of21 resultswithin the time period is included. WBC 7.1 4.0 - 11.0 [facility] RBC 2.73 (L) 4.50 - 6.00 [facility] Hgb 7.9 (L) 14.0 - 18.0 [facility] gm/dL [facility] Hct 24.5 (L) 40.0 - 54.0 % [facility] MCV 90 82 - 98 fL [facility] MCH 28.9 27.0 - 31.0 pg [facility] MCHC 32.2 31.0 - 36.0 [facility] gm/dL [facility] [place] RDW-SD 54.5 (H) 35.1 - 46.3 fL [facility] RDW-CV 16.9 (H) 12.0 - 15.5 % [facility] Platelet count 81 (L) 140 - 440 K/uL [facility] MPV 10.3 4.0 - 10.4 fL [facility] INRBC 0.0 <=0.0 % [facility] Comment: [facility] The INRBC (instrument NRBC) value reflects the enumera tion of nucleated red blood cells contained in a 200uL samp le of whole blood analyzed by the instrument. This value may differ from the NRBC value reported in a manual differ ential, which is based on a 100 cell differential. Specimen Blood Performing Organization Address City/State/ZIP Code Phon e Number [facility] CANCER Unless otherwise noted, [place], [place] [id number] [place] [address] all lab tests performed by: Division of Pathology and Laboratory Medicine [address] [place] [address] Hemodialysis-IHD (10/17/2020 12:39 PM CDT) Kerline Perea RN - 10/17/2020 12:3 9 PM CDT Kerline Aggarwal RN 10/17/2020 12:40 PM Post-treatment dialysis note -HD 4 hrs - 2 L total UF - tolerated tx well - access visible and secure at all times during tx. - report given to primary RN. The following Physicians orders were rev iewed: Orders Is there an order? Y/N/ NA Hand off received Y/N/NA Hand off given Y/N/NA Comments Pulmonary Function Test (PFT) n y VRE culture n y Enteral Feeding (EF) y y Daily weights y y Isolation status n y *Y=Yes N=No NA=Not Applicable Is there Midodrine Order? Y/N Midodrine Given within 60 min pre HD Y/N/NA Midodrine given by associate merchandise planner Y/N/NA Midodrine Route of Admin Hand off received Y/N/NA Hand off given Y/N/NA PO Y/N/NA EF Y/N/NA N na na na na na Y *Y= Yes N=No NA=Not Applicable Hepatitis B Surface Ag w/Confirm (10/17/2020 4:16 AM CDT)Only the most recent of6 resultswithin the time period is included. Hep Bs Ag-Oropeza Negative Negative [facility] Comment: [facility] Test Performed by: [facility] [address], [place] [address] [employer] Robot Operator: Alonso Neville M.D. Ph.D.; CLIA# [id number] Specimen Blood Performing Organization Address City/[facility] Phon e Number [facility] CANCER Unless otherwise noted, [address] all lab tests performed by: Division of Pathology and Laboratory Medicine [facility] [employer] Hepatitis B Surface Ag (10/17/2020 4:16 AM CDT)Only the most recent of6 results within the time period is included. Pathologist Sig nature HBsAg Received See NoteComment: [facility] HBsAg was sent to a [facility]ER CENTER reference lab for testing. Expect results on Hepatitis B Surface Antigen w/ Confirm within 96 hours. Specimen Blood Performing Organization Address [facility] Phon e Number [facility] CANCER Unless otherwise noted, [address] all lab tests performed by: Division of Pathology and Laboratory Medicine [facility] LearnUp Pierre (ABNORMAL) ABG (10/12/2020 4:48 AM CDT)Only the most recent of30 resultswithin the time period is included. pH Art 7.51 (H)Comment: 7.35 - 7.45 [facility] Results are [facility]ER CENTER corrected for a body temp of 37C. pCO2 Art 33.9 (L) 35.0 - 48.0 [facility] mmHg [facility] pO2 Art 104 83 - 108 mmHg [facility] HCO3 Art 27 21 - 28 mmol/L [facility] Base Excess Art 4 (H) -2 - 3 mmol/L [facility] O2 Sat Art 99 95 - 99 % [facility] Specimen Blood Performing Organization Address [facility] Phon e Number [facility] CANCER Unless otherwise noted, [address] all lab tests performed by: Division of Pathology and Laboratory Medicine [facility] Nenoasha Jay Vancomycin Level Random (10/12/2020 1:28 AM CDT)Only the most recent of2 resultswithin the time period is included. Vanco Lvl 9.9 mcg/mL [place] KARY Comment: [facility] CENTER Therapeutic Random Level: 5-40 mcg/mL Toxic random level: >40 mcg/mL Therapeutic Trough Level: 5-20 mcg/mL Toxic Trough Level: >20 mcg/mL Therapeutic Peak Level: 25-40 mcg/mL Toxic Peak Level: >40 mcg/mL Vanco Dose Time See note [facility] Comment: [facility] CENTER Level, date, and time of previous dose is not availabl e for this sample. The date reported is the sample collection date. Vanco Dose Date 10/12/2020 [place] KARY Comment: [facility]ENTER Level, date, and time of previous dose is not availabl e for this sample. The date reported is the sample collection date. Specimen Blood Performing Organization Address City/State/ZIP Code Phon e Number [facility] CANCER Unless otherwise noted, [address] all lab tests performed by: Division of Pathology and Laboratory Medicine [address] XR Chest 1 View Post Implant (10/10/2020 3:06 PM CDT)Only the most recent of2 resultswithin the time period is included. Specimen Impressions [id number] - 10/10/2020 3:58 PM CDT Adjustment of left PICC which now terminates in the upper right atrium. 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 Findings: NG tube extends into the stomach. A left PICC has been adjusted and now terminates likely in the upper right atrium. Multiple extraneous wires overlie the thorax. Persistent bilateral opacities consistent with pneumonia. 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 Findings: NG tube extends into the stomach. A left PICC has been adjusted and now terminates likely in the upper right atrium. Multiple extraneous wires overlie the thorax. Persistent bilateral opacities consistent with pneumonia. IMPRESSION: Adjustment of left PICC which now termin ates in the upper right atrium. Performing Organization Address [facility] Phon e Number [id number] General Laboratory Add-On Test (10/10/2020 1:37 AM CDT)Only the most recent of4 resultswithin the time period is included. Pathologist Sig nature Ordered Test Added [facility] Test Needed CMP, mag, phos [facility] Specimen Existing Performing Organization Address [facility] Phon e Number [facility] Unless otherwise noted, [address] all lab tests performed by: Division of Pathology and Laboratory Medicine [address] [place] (ABNORMAL) Calcium Ionized, Venous (10/09/2020 8:38 AM CDT)Only the most recent of35 resultswithin the time period is included. Pathologist Sig nature V Ion Ca 1.14 (L) 1.15 - 1.29 mmol/L [facility] Specimen Blood Performing Organization Address [facility] Phon e Number [facility] CANCER Unless otherwise noted, [address] all lab tests performed by: Division of Pathology and Laboratory Medicine [facility] [place] MRSA Screening Culture (2020 12:27 PM CDT) Final Report No Methicillin resistant [facility] Staphylococcus aureus [facility] isolated. Path Review The results have been review ed and electronically signed by Pathologist: [facility] Mary Last MD, PhD #[id number] [facility] ER Specimen Nasal Performing Organization Address [facility] Phon e Number [facility] CANCER Unless otherwise noted, [address] all lab tests performed by: Division of Pathology and Laboratory Medicine [address] Transfuse platelets:Transfusion Date: 10/04/2020 (10/04/2020 5:50 PM CDT)TMP Exception (10/04/2020 4:45 PM CDT) TMP Exception Patient A Pos transfused wit h O Pos platelets. This is due to temporary unavailability of ABO compatible platelets [place] MD Chapo QUINONEZ Interricardo Comment: [facility] LISETTE SINGH, Dictated by: LISETTE SINGH, Dictated Date/Time: 10.06.19 10:15 AM CDT Transcribed Date/Time: 10.05.2020 10:15 AM CDT Electronically Signed By: LISETTE SINGH, on 0 10.05.2020 10:15 AM Specimen Blood Performing Organization Address City/[facility] Phon e Number [facility] CANCER Unless otherwise noted, [address] all lab tests performed by: Division of Pathology and Laboratory Medicine [address] [place] [address] [place] PLT Product Ready for Mobile Disc Jockey (10/04/2020 2:15 PM CDT) [facility] PLT Product Ready B2 Blood [facility] for Mobile Disc Jockey BankComment: [facility] Product is ready for fiber picker on October 04, 2020 16:05:02 CDT. Specimen Blood Performing Organization Address City/[facility] Phon e Number [facility] CANCER Unless otherwise noted, [address] all lab tests performed by: Division of Pathology and Laboratory Medicine [address] [place] [address] Pierre Prepare platelets:Transfusion Date: 10/04/2020; Transfusion Indications: Actively Bleeding; G707, 1 Units (10/04/2020 2:15 PM CDT) [facility] PLT Product Ready ApprovedComment: [facility] Platelet order has [facility] been approved. Order Form 3 when ready for product issue. Expect 2 hours for platelet concentration. Unit Number [id number] [facility] Product Code [id number] [facility] Unit Expiration [id number] [facility] Unit Blood Type 5100 [facility] Product Code Text PLATELETS Pooled IR [facility] LR NC [facility]ER CENTER Number of Units in 4 [facility] Pool [facility] Unit Irradiated IRRADIATED [facility] Unit Leukoreduced LEUKOREDUCED [facility] Dispense Status ISSUED [facility] Unit Blood Type O Positive [facility] Product Mobile Disc Jockey .BPAMComment: [facility] Location [facility] Specimen Blood Performing Organization Address City/[facility] Phon e Number [facility] Unless otherwise noted, [address] all lab tests performed by: Division of Pathology and Laboratory Medicine [address] [place] (ABNORMAL) Fibrinogen (10/04/2020 12:40 PM CDT)Only the most recent of2 results within the time period is included. Pathologist Sig nature Fibrinogen 193 (L) 214 - 503 mg/dL [facility] [address] Specimen Blood Performing Organization Address [facility] Phon e Number [facility] Unless otherwise noted, [address] all lab tests performed by: Division of Pathology and Laboratory Medicine [address] [place] TSH (10/01/2020 4:48 PM CDT) Pathologist Sig nature TSH 1.11 0.27 - 4.20 mcunit/mL [facility] Specimen Blood Performing Organization Address [facility] Phon e Number [facility] Unless otherwise noted, [address] all lab tests performed by: Division of Pathology and Laboratory Medicine [address] [place] Free T4 (10/01/2020 4:48 PM CDT) Pathologist Sig nature T4 Free 1.11 0.93 - 1.70 ng/dL [facility] C ENTER Specimen Blood Performing Organization Address [facility] Phon e Number [facility] Unless otherwise noted, [address] all lab tests performed by: Division of Pathology and Laboratory Medicine [address] [place] (ABNORMAL) VBG (10/01/2020 12:47 AM CDT)Only the most recent of3 resultswithin the time period is included. pH Dom 7.27 (L)Comment: 7.32 - 7.43 [facility] Results are [facility]ER CENTER corrected for a body temp of 37C pCO2 Dom 43.9 41.0 - 51.0 [facility] mmHg [facility] pO2 Dom 44 mmHg [facility] HCO3 Dom 20 (L) 21 - 28 mmol/L [facility] Base Excess Dom -6 (L) -2 - 3 mmol/L [facility] O2 Sat Dom 67 % [facility] Specimen Blood Performing Organization Address City/State/ZIP Code Phon e Number [facility] CANCER Unless otherwise noted, [place] [address] [place] all lab tests performed by: Division of Pathology and Laboratory Medicine [facility] Transfuse fresh frozen plasma:Transfusion Date: 09/30/2020 (09/30/2020 6:27 PM CDT)Only the most recent of2 resultswithin the time period is included. Pneumocystis jiroveci Quant, BAL (09/30/2020 4:25 PM CDT) P. jiroveci Not Detected Not Detected [facility] BAL-[employer] Comment: copies/mL [facility] Assay Range: 84 copies/mL to 1.00E+08 copies/mL The limit of quantitation (LOQ) is 84 copies/mL. Pneum ocystis jiroveci DNA detected below the LOQ will be reported a s Detected:<84 copies/mL. This test was developed and its performance characteri stics determined by [employer]. It has not been cleare d or approved by the U.S. Food and Drug Administration. Results shou ld be used in conjunction with clinical findings, and should not for m the sole basis for a diagnosis or treatment decision. Performed At: [facility] [address] [place] [address] Rotary Engine Assembler: Carroll Bill Ph.D., CHARLA (ABB) CLIA#: [id number] Phone: Specimen BAL Narrative [facility] - 07/09/202 1 9:08 AM CDT From RUL and RML Performing Organization Address City/[facility]/ZIP Code Phon e Number [facility] CANCER Unless otherwise noted, [address] all lab tests performed by: Division of Pathology and Laboratory Medicine [place] (ABNORMAL) AFB Culture w/Smear (09/30/2020 4:25 PM CDT) Final Report Acid fast bacilli isolated [facility] Identification confirmed as: Mycobacterium avium [facility] Identified by 16S ribosomal DNA sequencing. The sequencing procedure was developed and its performance characteristics determined by [facility] microbiology laboratory. It has not been cleared or approved by the U.S. Food and Drug Administration (A) Path Review - AFB The results have been review ed and electronically signed by Pathologist: [facility] KARY MCCALL MD #[id number] [facility] (A) Acid Fast Stain No Acid Fast Bacilli [facility] Truant seen in direct smear [facility] (A) Specimen BAL - Lung, Right Middle Lobe Narrative [facility] - 1 8:41 PM CDT And RUL Performing Organization Address [facility] Code Phon e Number [facility] CANCER Unless otherwise noted, [address] all lab tests performed by: Division of Pathology and Laboratory Medicine [address] Legionella Culture (09/30/2020 4:25 PM CDT) Final Report No Legionella species [facility] Path Review - The results have been review ed and electronically signed by Pathologist: [facility] Legionella Mary Last MD, PhD #[id number] [facility] Specimen BAL - Lung, Right Middle Lobe Narrative [facility] - 1 4:36 PM CDT Label says RML & RUL Performing Organization Address City/[facility]/ZIP Code Phon e Number [facility] Unless otherwise noted, [address] all lab tests performed by: Division of Pathology and Laboratory Medicine [address] (ABNORMAL) Fungus Culture (09/30/2020 4:25 PM CDT) Final Report Few Yeast isolated [facility] Probable oral jesse [facility] (A) Path Review - The results have been review ed and electronically signed by Pathologist: [facility] Fungus Mary Last MD, PhD #[id number] [facility] ER (A) Specimen BAL - Lung, Right Middle Lobe Narrative [facility] - 4:36 PM CDT And RUL Cultures are held for 4 weeks before fin alization. Performing Organization Address City/[facility]/ZIP Code Phon e Number [facility] CANCER Unless otherwise noted, [place] [address] CENTER all lab tests performed by: Division of Pathology and Laboratory Medicine [address] [place] [address] Cytology Non-Head Bander And Liner Operator Interpretation (09/30/2020 4:17 PM CDT)Only the most recent of 2 resultswithin the time period is included. Gross Description A: [facility] 1 Diff Quik; 1 Pap Stain Slides 15 ml. slightly cloudy pink fluid Specimen concentrated by cytocentrifugation technique Cytolyt Major Classification [facility]/benign [facility] Electro nically signed by Yang Garcia MD on 021 at 6:36 PM Diagnosis A. Lung, right upper lobe, bronchoalveolar lavage: [facility] No viral changes at 6:36 PM GMS stain, negative for fungal forms GMS stain, negative for Pneumocystis Iron stain, essentially negative Comment Controls are [facility] appropriate. Retained/Biomarker SR: 2 S, 2 SP [facility] Testing Informational Points Some tests reported [facility] here may have been developed and performance characteristics determined by [facility] Pathology and Laboratory Medicine. These tests have not been specifically cleared or approved by the U.S. Food and Drug Administration. Specimen Fluid - Bronchus, Right Upper Lobe Performing Organization Address City/State/ZIP Code Phon e Number [facility] [place] [address] [address] [place] INSERT CATH,ART,CUTDOWN,SHORTTERM, HC U/S GUID FOR VASC ACCESS (09/30/2020 12:15 PM CDT) Narrative Chano Willams NP - 09/30/2020 12:15 PM CDT Chano Willams NP 10/02/2020 6:00 AM Arterial line insertion Date/Time: 09/30/2020 12:15 PM Consent Obtained: emergent situation Consent given by: patient (I spoke with the patient's son) Risk discussed: bleeding, infection and pain Wing Protocol completed: yes Provider Information: Performed by: Chano Willams NP Authorized by: Chano Willams NP Indication(s) for Procedure: Need for frequent arterial blood gas babita pling, respiratory failure, need for invasive hemodynamic monitoring and septic shock Allergies: -- Betadine (Povidone-Iodine) -- Rash Pre-Procedure: Patient Condition: patient is sedated (n o sedated for procedure). Is the patient on full dose anticoagulat ion: no. Anesthesia: Anesthesia: local infiltration Local Anesthetic: lidocaine 2% without e pinephrine Anesthetic total: 3 mL Sedation: Patient sedated: no (not for procedure) Procedure Description: Equipment: Arrow Kit [id number] Needle gauge: 20 Procedure Details: Equipment and pressure transducer prepar ed and ready Patient positioned appropriately for pro cedure Maximal barriers applied (hat, mask, ramakrishna rile gown, sterile gloves, sterile drape. Hand hygiene performed by all persons pe rforming/assisting with insertion. Location: left femoral Preparation: Patient was prepped and devin ped in the usual sterile fashion. The area was prepped with chlorhexidine. Ultrasound guidance: yes Sterile ultrasound techniques: sterile g el and sterile probe covers were used The artery was accessed on attempt numbe r 1 with return of red pulsatile blood. Seldinger technique used?: yes Cutdown required?: yes Transducer: waveform confirmed Guide wire removed?: yes Additional Information: Ultrasound used for placement. Post-Procedure: Post Procedure: biopatch applied, line s utured, secured with tape and sterile dressing applied Neurovascular exam: unchanged Patient tolerance: patient tolerated the procedure well Specimen(s) removed: no specimen collect ed Estimated Blood Loss: minimal Complications: no immediate complication s Assessment/Plan: continue invasive blood pressure monitoring and blood gas monitoring as needed Disposition: remain in inpatient bed Debrief performed?: yes Comments: No issues with placement. Dr. Queen aware of successful placement. NC INSERT NON-TUNNEL CV CATH, NC CHG US GUIDE, VASCULAR ACCESS (09/30/2020 12:15 PM CDT) Narrative Chano Willams NP - 09/30/2020 12:15 PM CDT Chano Willams NP 10/02/2020 6:00 AM Date/Time: 09/30/2020 12:15 PM Provider Information: Performed by: Chano Willams NP Authorized by: Chano Willams NP Case Briefer present: no Patient Diagnosis: Pre-operative diagnosis: Acute Renal gen lure Respiratory failure Septic shock Post-operative diagnosis: unchanged Indications: Indications: vascular access (dialysis) Pre-Procedure Note: Patient examined pre-procedure: yes Chart reviewed pre-procedure, including labs, images, history and physical exam: yes 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 noni davila ded Pre-procedure patient condition: sedated (from recent intubation) Anesthesia: Anesthesia: local infiltration Local anesthetic: lidocaine 2% without e pinephrine Anesthetic total (ml): 3 Sedation: Patient sedated?: no (not for procedure) Central Venous Catheter Placement: Preparation: equipment and IV tubing pre pared, patient ready for procedure, insertion site prepped and cl eaned with aseptic technique and insertion site area shaved Skin prep agent dried: skin prep agent c ompletely dried prior to procedure Sterile barriers: maximum sterile tee rs were used: cap, mask, sterile gown, sterile gloves, and large sterile sheet Hand hygiene: hand hygiene performed yair or to central venous catheter insertion O2 used for procedure (L): 1 O2 Saturation (%): 95 Location: left femoral Patient position: reverse Trendelenburg Catheter type: triple lumen (dialysis ca theter) Instruments used: central venous cathete r tray Pre-procedure: landmarks identified Ultrasound guidance: yes Sterile ultrasound techniques: sterile g el and probe cover used in ultrasound-guided central venous cathete r insertion Needle introduced into anesthetized area : yes Sterile Seldinger technique used: Seldin nasim technique used MicroIntroducer with sheath inserted: tran vidales Drip test performed: yes Dilator inserted gently over guidewire: yes Dilator with peel away sheath inserted: yes Catheter inserted: yes IV tubing attached to catheter: yes Reverse Trendelenburg position discontin ued: yes Each lumen evacuated of air and flushed with sterile saline: yes Catheter size: 12 Fr Number of attempts: 1 Successful placement: yes Estimated blood loss: minimal Post-procedure: Post-procedure: line sutured and dressin g applied Assessment: blood return through all por ts and free fluid flow Patient condition: patient tolerated the procedure well with no immediate complications, patient does not report a dverse symptoms, patient remained hemodynamically stable throughout the pr ocedure and patient is warm and well perfused Responsiveness: lethargic Patient disposition: remain in inpatient bed Comments: No issues with line placement. Dr. Queen aware of successful placement. FFP Product Ready for Mobile Disc Jockey (09/30/2020 6:20 AM CDT) FFP Product Ready B2 Blood [facility] for Mobile Disc Jockey BankComment: [facility] Product is ready for fiber picker on September 30, 2020 11:12:03 CDT. Specimen Blood Performing Organization Address City/State/ZIP Code Phon e Number [facility] CANCER Unless otherwise noted, [place] [address] [place] all lab tests performed by: Division of Pathology and Laboratory Medicine [facility] Prepare fresh frozen plasma:Transfusion Date: 09/30/2020; Transfusion Indications: Prothrombin time greater than 18 seconds; G701, 2 Units (09/30/2020 6:20 AM CDT) FFP Product Ready 2Comment: Fresh [facility] Frozen Plasma [facility] Available - Order Form 03 when ready for product issue. Unit Number [id number] [facility] Product Code [id number] [facility]ENTER Unit Expiration [id number] [facility] Unit Blood Type 6200 [facility] Product Code Text PLASMA IR CPD [facility] Unit Irradiated IRRADIATED [facility] Dispense Status ISSUED [facility] Unit Blood Type A Positive [facility] Product Mobile Disc Jockey .BPAMComment: [facility] Location [facility] Unit Number [id number] [facility] Product Code [id number] [facility] CAN[facility]ER CENTER Unit Expiration [id number] [facility] Unit Blood Type 6200 [facility] Product Code Text PLASMA IR CPD [facility] [facility] Unit Irradiated IRRADIATED [facility] Dispense Status ISSUED [facility] Unit Blood Type A Positive [facility] Product Mobile Disc Jockey .BPAMComment: [facility] Location CANCER CENTER Specimen Blood Performing Organization Address City/[facility]/ZIP Code Phon e Number [facility] CANCER Unless otherwise noted, [address] all lab tests performed by: Division of Pathology and Laboratory Medicine [address] [place] (ABNORMAL) Cardiac Panel (09/30/2020 2:54 AM CDT)Only the most recent of6 resultswithin the time period is included. CK 138 39 - 308 U/L [facility] CK MB <2.0 <=10.4 ng/mL [facility] Troponin T 123 (C) <=18 ng/L [facility] Comment: [facility] < 19 ng/L Suggest retest at 3 to 6 hours later to rule out myocardial infarction >= 19 to <=52 ng/L Possible myocardial injury. Suggest retest at 3 hours. - a change of < 20 ng/L, retest at 6 hours - a change of >= 20 ng/L, suggestive of myocardial infarction > 52 ng/L Suggestive of myocardial infarction Critical value will be repor jigar when cTnT is > 52 ng/L and only reported for the first in a series. Hemolyzed specimens with Hem olysis Index >100 (100 mg/dl or moderate hemolysis) may cause interferences and falsely low results. Specimen Blood Performing Organization Address [facility] Phon e Number [facility] CANCER Unless otherwise noted, [address] all lab tests performed by: Division of Pathology and Laboratory Medicine [address] [place] Differential Cancel (09/29/2020 2:30 PM CDT)Only the most recent of2 results within the time period is included. Diff Cancelled See NoteComment: Due [facility] to low WBC, the [facility] differential will not be performed and it is not possible to calculate ANC. Specimen Blood Performing Organization Address City/[facility] Phon e Number [facility] CANCER Unless otherwise noted, [address] all lab tests performed by: Division of Pathology and Laboratory Medicine [address] [place] Echocardiogram 2D Limited - Follow Up (09/29/2020 11:24 AM CDT) Specimen Narrative ISCV - 09/29/2020 4:13 PM CDT Echocardiographic Report Interpretation Summary A two-dimensional transthoracic echocard iogram with M-mode and Doppler was performed. The study was technically limited. Limited views were obtained. Compared to prior study, there is no significant change. Normal left ventricular size and systoli c function. Using an ultrasound enhancing agent and the Biplane Method of Disks, the LVEF measures 57% Right ventricle is dilated and right dom tricular systolic function and contractility is reduced. Septal motion suggests right ventricular volume overload. Injection of agitated saline documented with no evidence of an interatrial shunt. Severity of tricuspid insufficiency prec ludes reliable non-invasive measurement of RVSP. There is severe tricuspid regurgitation. There is no pericardial effusion. Left Ventricle: Normal left ventricular size and systoli c function. Using an ultrasound enhancing agent and the Biplane Method of Disks, the LVEF measures 57%. Septal motion suggests right ventricular volume overload. 3D imaginD volumes were not performed in this [facility]. Cardiac Mechanics/Speckle Tracking Imagi ng: Speckle tracking imaging was not perform ed in this study. (Mister Bell Study). Diastology: Tissue Doppler was not obtained. Right Ventricle: The RV is dilated. The right ventricular systolic function and contractility is reduced. Atria: The left atrium is mildly dilated. Right Atrium is dilated. There is no Doppler evidence for an atrial septal defect. Injection of agitated saline documented with no evidence of an interatrial shunt. Th e intra-atrial septum motion is consiste nt with elevated right atrial pressure. Mitral Valve: The mitral valve is grossly normal. Tricuspid Valve: The tricuspid valve is not well visualiz ed, but is grossly normal. There is severe tricuspid regurgitation. Severity of tricuspid insufficiency precludes reliable non-invasive measurement of RVSP. Aortic Valve: The aortic valve is trileaflet. The aort ic valve opens well. Pulmonic Valve: The pulmonic valve is not well visualize d. Great Vessels: The inferior vena cava is dilated with d ecreased respiratory variation. Pericardium/Pleural: There is no pericardial effusion. Preliminary Reviewer Preliminary Interpretation: Beba Aparicio MD. MMode/2D Measurements RVDd: 5.0 cm LVIDd: 4.5 cm IVSd: 0.93 cm LVPWd: 0.94 cm EDV(MOD-A4C): 113.8 ml EDV(MOD-A2C): 116.8 ml ESV(MOD-A4C): 49.5 ml ESV(MOD-A2C): 50.2 ml EF(MOD-A4C): 56.5 % EF(MOD-A2C): 57.0 % LAV(MOD-A2C): 67.8 ml EDV(MOD-bp): 118.1 ml LAV(MOD-A4C): 83.2 ml ESV(MOD-bp): 50.6 ml LAV(MOD-bp): 82.8 ml EF(MOD-bp): 57.1 % LAV(MOD-bp) Indexed: 39.0 ml/m2 EDV (MOD-bp) Index: 55.6 ml/m2 ESV (MOD- bp) Index: 23.8 ml/m2 Doppler Measurements TR max rodriguez: 201.9 cm/sec RAP systole: 20.0 mmHg TR max P.3 mmHg RVSP(TR): 36.3 mmHg Procedure Note Adrian Green MD - 09/29/2020 Echocardiographic Report Interpretation Summary A two-dimensional transthoracic echocard iogram with M-mode and Doppler was performed. The study was technically limited. Limited views were obtained. Compared to prior study, there is no significant change. Normal left ventricular size and systoli c function. Using an ultrasound enhancing agent and the Biplane Method of Disks, the LVEF measures 57% Right ventricle is dilated and right dom tricular systolic function and contractility is reduced. Septal motion suggests right ventricular volume overload. Injection of agitated saline documented with no evidence of an interatrial shunt. Severity of tricuspid insufficiency prec ludes reliable non-invasive measurement of RVSP. There is severe tricuspid regurgitation. There is no pericardial effusion. Left Ventricle: Normal left ventricular size and systoli c function. Using an ultrasound enhancing agent and the Biplane Method of Disks, the LVEF measures 57%. Septal motion suggests right ventricular volume overload. 3D imaginD volumes were not performed in this st [facility]. Cardiac Mechanics/Speckle Tracking Imagi ng: Speckle tracking imaging was not perform ed in this study. (GE Study). Diastology: Tissue Doppler was not obtained. Right Ventricle: The RV is dilated. The right ventricular systolic function and contractility is reduced. Atria: The left atrium is mildly dilated. Right Atrium is dilated. There is no Doppler evidence for an atrial septal defect. Injection of agitated saline documented with no evidence of an interatrial shunt. The intra-atrial septum motion is consistent with elevate d right atrial pressure. Mitral Valve: The mitral valve is grossly normal. Tricuspid Valve: The tricuspid valve is not well visualiz ed, but is grossly normal. There is severe tricuspid regurgitation. Severity of tricuspid insufficiency precludes reliable non-invasive measurement of RVSP. Aortic Valve: The aortic valve is trileaflet. The aort ic valve opens well. Pulmonic Valve: The pulmonic valve is not well visualize d. Great Vessels: The inferior vena cava is dilated with d ecreased respiratory variation. Pericardium/Pleural: There is no pericardial effusion. Preliminary Reviewer Preliminary Interpretation: Beba Aparicio MD. MMode/2D Measurements RVDd: 5.0 cm LVIDd: 4.5 cm IVSd: 0.93 cm LVPWd: 0.94 cm EDV(MOD-A4C): 113.8 ml EDV(MOD-A2C): 116.8 ml ESV(MOD-A4C): 49.5 ml ESV(MOD-A2C): 50.2 ml EF(MOD-A4C): 56.5 % EF(MOD-A2C): 57.0 % LAV(MOD-A2C): 67.8 ml EDV(MOD-bp): 118.1 ml LAV(MOD-A4C): 83.2 ml ESV(MOD-bp): 50.6 ml LAV(MOD-bp): 82.8 m l EF(MOD-bp): 57.1 % LAV(MOD-bp) Indexed : 39.0 ml/m2 EDV (MOD-bp) Index: 55.6 ml/m2 ESV (MOD-bp) Index: 23.8 ml/m2 Doppler Measurements TR max rodriguez: 201.9 cm/sec RAP systole: 20.0 mmHg TR max P.3 mmHg RVSP(TR): 36.3 mmHg Performing Organization Address City/State/ZIP Code Phon e Number ISCV Respiratory Viral Panel + COVID-19, Nasopharyngeal Swab (09/29/2020 7:21 AM CDT) Adenovirus Not Detected Not Detected [facility] Coronavirus 229E Not Detected Not Detected [facility] Coronavirus HKU1 Not Detected Not Detected [facility] Coronavirus NL63 Not Detected Not Detected [facility] Coronavirus OC43 Not Detected Not Detected [facility] COVID19 (SARS-CoV-2) Not Detected Not Detected [facility] Human Metapneumovirus Not Detected Not Detected [facility] Human Not Detected Not Detected [facility] Rhinovirus/Enterovirus [facility] Influenza A Not Detected Not Detected [facility] Influenza A H1 Not Detected Not Detected [facility] Influenza A H1 2009 Not Detected Not Detected [facility] Influenza A H3 Not Detected Not Detected [facility] Influenza B Not Detected Not Detected [facility] Parainfluenza 1 Not Detected Not Detected [facility] Parainfluenza 2 Not Detected Not Detected [facility] Parainfluenza 3 Not Detected Not Detected [facility] Parainfluenza 4 Not Detected Not Detected [facility] Respiratory Syncytial Not Detected Not Detected [facility] Virus [facility] Bordetella Not Detected Not Detected [facility] Parapertussis [facility] Bordetella pertussis Not Detected Not Detected [facility] Chlamydiophila Not Detected Not Detected [facility] pneumoniae [facility] Mycoplasma pneumoniae Not Detected Not Detected [facility] Specimen Nasopharyngeal Swab Narrative [facility] - 1 9:00 AM CDT The BioFire RP2.1 is a real-time, nested multiplexed polymerase chain reaction test designed to simul taneously identify nucleic acids from 22 different viruses and bacteria associated with respiratory tract infection, including SARS-CoV-2, from a single nasopharyngeal swab (SUPERVISOR DRAWING) specimen. Spec ifically, the SARS-CoV-2 primers contained in the BioFire RP2.1 are designed to detect RNA from the SARS-CoV-2 in nasopharyngeal swabs in transport media from patients who are suspected of COVID-19 by their healthcare provider. Results must be int erpreted within the context of all relevant clinical and laboratory findings and should not form the sole basis for a diagnosis or treatment decision. This assay has been approved by the FDA for use only under Emergency Use Authorization (EUA) in laboratories that have been CLIA-certified to perform moderate-complexity and high-complexity tests. The icrobiology Laboratory at [facility], CLIA Accreditation #[id number] and CAP Accreditation #[id number], verified the performance characteristics of this assay. Microbiology Laboratory at [facility] performs the assay using the Wimdu System. Internal control s are used to monitor all stages of the test proces s. Performing Organization Address City/[facility] Code Phon e Number [facility] CANCER Unless otherwise noted, [address] all lab tests performed by: Division of Pathology and Laboratory Medicine [address] OSI Chest (09/28/2020 11:51 AM CDT) Specimen Narrative Systemgenerated, Documentation - 021 11:51 AM CDT Study acquired at another institution. For comparison only. No [facility] originated interpretation requested or a vailable. Glucose, Random (09/23/2020 5:22 AM CDT)Only the most recent of6 resultswithin the time period is included. Glucose Random 123 70 - 199 mg/dL [facility] Comment: CANCER CENTER Effective 10/21/15, the gluco se reference intervals have been updated based on [place] [employer] guidelines (Standards of Medical Care in Diabetes 2016. Diabetes Care 2016; 39: S13-S22). Fasting blood glucose: Normal: 70 99 mg/dL Impaired fasting glucose (in creased risk for diabetes or pre-diabetes): 100 125 mg/dL Diabetes mellitus: >/=126 mg/dL Random blood glucose: Normal: 70 199 mg/dL Note: Random glucose >100 mg/dL is assoc iated with increased risk for diabetes Specimen Blood Performing Organization Address [facility] Phon e Number [facility] CANCER Unless otherwise noted, [address] all lab tests performed by: Division of Pathology and Laboratory Medicine [address] [place] Anion Gap (09/23/2020 5:22 AM CDT)Only the most recent of6 resultswithin the time period is included. Pathologist Sig nature Anion Gap 9 4 - 14 mEq/L [facility] Specimen Blood Performing Organization Address City/[facility]/ZIP Code Phon e Number [facility] CANCER Unless otherwise noted, [address] all lab tests performed by: Division of Pathology and Laboratory Medicine [address] [place] Uric Acid Rasburicase (09/23/2020 5:22 AM CDT)Only the most recent of5 results within the time period is included. Pathologist Sig nature Uric MICHELLE 5.4 3.4 - 7.0 mg/dL [facility] TER Specimen Blood Performing Organization Address [facility] Phon e Number [facility] Unless otherwise noted, [address] all lab tests performed by: Division of Pathology and Laboratory Medicine [address] [place] Sodium Level (09/23/2020 5:22 AM CDT)Only the most recent of6 resultswithin the time period is included. Pathologist Sig nature Sodium Lvl 145 136 - 145 mEq/L [facility] TER Specimen Blood Performing Organization Address [facility] Phon e Number [facility] Unless otherwise noted, [address] all lab tests performed by: Division of Pathology and Laboratory Medicine [address] [place] Potassium (09/23/2020 5:22 AM CDT)Only the most recent of6 resultswithin the time period is included. Pathologist Sig nature Potassium Lvl 3.7 3.5 - 5.1 mEq/L [facility] Specimen Blood Performing Organization Address [facility] Phon e Number [facility] Unless otherwise noted, [address] all lab tests performed by: Division of Pathology and Laboratory Medicine [address] [place] (ABNORMAL) Chloride Level (09/23/2020 5:22 AM CDT)Only the most recent of6 resultswithin the time period is included. Pathologist Sig nature Chloride 110 (H) 98 - 107 mEq/L [facility] ER Specimen Blood Performing Organization Address [facility] Phon e Number [facility] Unless otherwise noted, [address] all lab tests performed by: Division of Pathology and Laboratory Medicine [address] [place] Carbon Dioxide Level (09/23/2020 5:22 AM CDT)Only the most recent of6 results within the time period is included. Pathologist Sig nature CO2 26 22 - 29 mEq/L [facility] Specimen Blood Performing Organization Address [facility]/State/ZIP Code Phon e Number [facility] CANCER Unless otherwise noted, [place] [address] CENTER all lab tests performed by: Division of Pathology and Laboratory Medicine [facility]5 [facility] Lumbar Puncture with IT Chemo (09/22/2020 9:44 AM CDT) Specimen Impressions [id number] - 09/22/2020 10:16 AM CDT Technically successful fluoroscopic-guid ed lumbar puncture for CSF sampling and intrathecal administration of chemotherapy. 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 Indication: Cerebrospinal fluid sampling with administration of antineoplastic intrathecal chemotherapy, failed bedside LP on 09/21/20. Comparison: None. Proceduralist: Rosario Lund PA-C Case Briefer: Elisa SHELLEY Pre-Procedure: Consent obtained: The risks and benefits of fluoroscopic-guided lumbar puncture were discussed with the patient and informed consent was reviewed. Wing protocol (time out) performed: Yes Sedation/Anesthesia:Local anesthesia: 10 mL lidocaine 1%. Technique: The patient was placed prone on the radiographic table and prepped and draped in the usual aseptic manner. Lidocaine 1% was used as the local anesthetic. Fluoroscopically guided lumbar punctu re was performed at the L3-L4 level, usi ng a 20-gauge 5 inch Quincke spinal needle. Efflux of clear CSF was identified. CSF samples were collected and sent to the laboratory as per clinical service. The prescribed chemotherapy methotrexate 12 mg in 5 mL of preservative free normal saline, was administered intrathecally without incident. The spinal needle was then removed and local hemostasis was achie gavin by direct pressure. A Bandage was ap plied at the site of the puncture. Findings: Approximately 6 mL of clear CS F was collected in 3 tubes as per the clinical service's request (3 mL, 2 mL, and 1 mL) and transferred to the laboratory for analysis. Estimated blood loss: None. Immediate Complications: None. Disposition: The patient tolerated the p rocedure well and was observed in the [DI holding area as per protocol, transferred to the recovery area]. 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 Indication: Cerebrospinal fluid sampling with administration of antineoplastic intrathecal chemotherapy, failed bedside LP on 09/21/20. Comparison: None. Proceduralist: Rosario Lund PA-C Case Briefer: Elisa SHELLEY Pre-Procedure: Consent obtained: The risks and benefits of fluoroscopic-guided lumbar puncture were discussed with the patient and informed consent was reviewed. Wing protocol (time out) performed: Yes Sedation/Anesthesia:Local anesthesia: 10 mL lidocaine 1%. Technique: The patient was placed prone on the radiographic table and prepped and draped in the usual aseptic manner. Lidocaine 1% was used as the local anesthetic. Fluoroscopically guided lumbar puncture was performed at the L3-L4 level, using a 20 -gauge 5 inch Quincke spinal needle. Efflux of [...] was applied at the site of the p uncture. Findings: Approximately 6 mL of clear CS F was collected in 3 tubes as per the clinical service's request (3 mL, 2 mL, and 1 mL) and transferred to the laboratory for analysis. Estimated blood loss: None. Immediate Complications: None. Disposition: The patient tolerated the p rocedure well and was observed in the [DI holding area as per protocol, transferred to the recovery area]. IMPRESSION: Technically successful fluoroscopic-guid ed lumbar puncture for CSF sampling and intrathecal administration of chemotherapy. Performing Organization Address City/State/ZIP Code Phon e Number [id number] FC B-Cell Lymphoma Panel Collection, Nonblood (09/22/2020 9:24 AM CDT) Pathologist Sig nature Flow Cytometry Yes [facility] CANCER (Received) CENTER Specimen CSF Performing Organization Address City/State/ZIP Code Phon e Number [facility] CANCER Unless otherwise noted, [place] [address] CENTER all lab tests performed by: Division of Pathology and Laboratory Medicine [address] [place] [address] [place] FC Lymphoma B K/L Interpretation and Report (09/22/2020 9:24 AM CDT) Specimen Narrative This result has an attachment that is no t available. (ABNORMAL) Beta 2 Microglobulin, CSF (09/22/2020 9:24 AM CDT) Pathologist [facility] Beta 2 Microglobulin 2.02 (H) 0.70 - 1.80 [facility] CSF Comment: mcg/mL [facility] ADDITIONAL INFORMATION ------ This test has been modified from the calenderer's instructions. Its performance characteristics were determined by [facility] in a manner consistent with CLIA requirements. This test has not been cleared or approved by the U.S. Food and Drug Administration. Test Performed by: [facility] [place] [address] Assembly Line Robot Operator: Alonso Neville M.D. Ph.D.; CLIA# [id number] Specimen CSF - CSF, Lumbar Puncture Performing Organization Address [facility] Phon e Number [facility] CANCER Unless otherwise noted, [address] all lab tests performed by: Division of Pathology and Laboratory Medicine [facility] [place] Flow Cytometry Specimen Collection -CSF (09/22/2020 9:24 AM CDT) [facility] Flow Cytometry Yes [facility] (Received) Comment: CANCER CENTER Test performed by: [facility] Flow Cytometry Laboratory [address] [place] [address] [place] Ap Link [id number] [facility] Specimen CSF Performing Organization Address [facility] Phon e Number [facility] CANCER Unless otherwise noted, [address] all lab tests performed by: Division of Pathology and Laboratory Medicine [facility] [place] (ABNORMAL) Cell Count w/ Diff CSF (09/22/2020 9:24 AM CDT) Pathologist [facility] Type CSF TapComment: When [facility] reviewing the [facility] count and differential results, clinicians should consider the length of time between spinal fluid collection and testing and the clinical condition of the patient. Appear CSF CLEARComment: When CLEAR [facility] reviewing the cell CANCER CENTER count and differential results, clinicians should consider the length of time between spinal fluid collection and testing and the clinical condition of the patient. Color CSF ColorlessComment: Colorless [facility] When reviewing the CANCER CENTER cell count and differential results, clinicians should consider the length of time between spinal fluid collection and testing and the clinical condition of the patient. WBC CSF 5Comment: When 0 - 5 /mcL [facility] reviewing the cell CANCER CENTER count and differential results, clinicians should consider the length of time between spinal fluid collection and testing and the clinical condition of the patient. RBC CSF 13 (H)Comment: When 0 - 0 /mcL [facility] reviewing the cell [facility] count and differential results, clinicians should consider the length of time between spinal fluid collection and testing and the clinical condition of the patient. Tot Cells CSF 100Comment: When [facility] reviewing the cell [facility] count and differential results, clinicians should consider the length of time between spinal fluid collection and testing and the clinical condition of the patient. Neut CSF 0Comment: When 0 - 5 % [facility] reviewing the cell [facility] count and differential results, clinicians should consider the length of time between spinal fluid collection and testing and the clinical condition of the patient. Lymph CSF 82Comment: When 28 - 96 % [facility] reviewing the cell [facility] count and differential results, clinicians should consider the length of time between spinal fluid collection and testing and the clinical condition of the patient. Histiocyte CSF 18Comment: When 16 - 56 % [facility] reviewing the cell [facility] count and differential results, clinicians should consider the length of time between spinal fluid collection and testing and the clinical condition of the patient. Microorganisms CSF None SeenComment: None Seen [facility] When reviewing the [facility] cell count and differential results, clinicians should consider the length of time between spinal fluid collection and testing and the clinical condition of the patient. Specimen CSF Performing Organization Address City/State/ZIP Code Phon e Number [facility] CANCER Unless otherwise noted, [place] [address] [place] all lab tests performed by: Division of Pathology and Laboratory Medicine [facility] [place] Protein CSF (09/22/2020 9:24 AM CDT) Protein CSF 33 15 - 45 mg/dL [facility] Type CSF TapComment: When [facility] reviewing the cell [facility] count and differential results, clinicians should consider the length of time between spinal fluid collection and testing and the clinical condition of the patient. Specimen CSF Performing Organization Address City/[facility] Phon e Number [facility] CANCER Unless otherwise noted, [address] all lab tests performed by: Division of Pathology and Laboratory Medicine [address] [place] [address] (ABNORMAL) Glucose CSF (09/22/2020 9:24 AM CDT) Pathologist [facility] Glucose CSF 81 (H) 40 - 70 mg/dL [facility] Type CSF TapComment: When [facility] reviewing the [facility] count and differential results, clinicians should consider the length of time between spinal fluid collection and testing and the clinical condition of the patient. Specimen CSF Performing Organization Address [facility] Phon e Number [facility] Unless otherwise noted, [address] all lab tests performed by: Division of Pathology and Laboratory Medicine [address] [place] [address] (ABNORMAL) Hepatitis B Core Total Antibody (09/22/2020 4:13 AM CDT)Only the most recent of2 resultswithin the time period is included. Pathologist [facility] HBc Total Ab-[place] Positive (A) Negative [facility] Comment: [facility] If clinically indicated, testing for Hepatitis B Core IgM antibody is necessary to differentiate between acu te and past HBV infection. Test Performed by: [place] [address] [employer] Operator: Alonso Neville M.D. Ph.D.; CLIA# [id number] Specimen Blood Performing Organization Address [facility] Phon e Number [facility] Unless otherwise noted, [address] all lab tests performed by: Division of Pathology and Laboratory Medicine [address] [place] [address] Hepatitis B Total Ig Core Ab (SCREENING) (anti-HBc total Ig; HBcAb total Ig) (09/22/2020 4:13 AM CDT)Only the most recent of2 resultswithin the time period is included. Pathologist [facility] nature HBcAb Received See NoteComment: [facility] HBcAb was sent to a [facility]ENTER reference lab for testing. Expect results on Hepatitis B Core Total Ab within 96 hours. Specimen Blood Performing Organization Address City/[facility] Phon e Number [facility] Unless otherwise noted, [address] all lab tests performed by: Division of Pathology and Laboratory Medicine [facility] [place] Hepatitis Be Ab (09/22/2020 4:13 AM CDT) Pathologist Sig nature HBe Ab-[place] Negative Negative [facility] Comment: [facility] Test Performed by: [place] [address] [employer] Operator: Alonso Neville M.D. Ph.D.; CLIA# [id number] Specimen Blood Performing Organization Address [facility] Phon e Number [facility] CANCER Unless otherwise noted, [address] all lab tests performed by: Division of Pathology and Laboratory Medicine [facility] [place] Hepatitis Be Ag (09/22/2020 4:13 AM CDT) Pathologist Sig nature HBe Ag-[place] Negative Negative [facility] Comment: [facility] Test Performed by: [place] [address] [employer] Operator: Alonso Neville M.D. Ph.D.; CLIA# [id number] Specimen Blood Performing Organization Address [facility] Phon e Number [facility] CANCER Unless otherwise noted, [address] all lab tests performed by: Division of Pathology and Laboratory Medicine [address] [place] [address] [place] Hepatitis B Surface Antibody (09/22/2020 4:13 AM CDT) Hep Bs Ab-[place] Positive [facility] Comment: [facility] Patient is considered to be immune to infection with H BV. REFERENCE VALUE ------ Unvaccinated: Negative Vaccinated: Positive Hep Bs Ab Qn-[place] 1000 mIU/mL [facility] Comment: [facility] REFERENCE VALUE ------ Unvaccinated: <5.0 Vaccinated: >=12.0 Test Performed by: [place] [address] [employer] Operator: Alonso Neville M.D. Ph.D.; CLIA# [id number] Specimen Blood Performing Organization Address City/State/ZIP Code Phon e Number [facility] CANCER Unless otherwise noted, [place] [address] CENTER all lab tests performed by: Division of Pathology and Laboratory Medicine [address] [place] (ABNORMAL) T-spot Tuberculosis (09/21/2020 4:36 PM CDT) Tspot TB NIL Cont TMTC [facility] Tspot TB Panel A TMTC [facility] Tspot TB Panel B [facility] Tspot TB Pos Cont TMTCComment: NOTE: [facility] INDICATES TOO MANY [facility] C[facility] SPOTS TO COUNT. SAT INDICATES THE WELL WAS SATURATED. Tspot TB Invalid (A) Negative [facility] Comment: [facility] Invalid test - There were >10 spots in the negative co ntrol well. Performing Lab: [facility] [address] [place] [id number] Tspot TB Interp See Note [facility] Comment: [facility] Results Interpretation: Results are Negative when (P lizzie A - NIL) and (Panel B - NIL) ? 4 spots, including values less than zero. Results are Positive when (Panel A - NIL) and (Panel B - NIL) ? 8 spots. Results are Borderline when either (Panel A - NIL) and (Panel B - NIL) = 5, 6, or 7. The test is invalid when either of the following condi tions is met: 1.) The NIL Control has > 10 spots. 2.) The Mitogen (Positive Co ntrol) has <20 spots and both (Panel A - NIL) and (Panel B - NIL) ? 4 spots. M. tuberculosis infection cannot be excluded when: 1. Any illness is consistent with TB disease. 2. Likelihood of progression to disease (e.g. Due to Immunosuppression) is increased. Limitations Diagnosing or excluding Tube rculosis disease, and assessing the probability of LTBI, requires a combination of Epidemiological, historical, medical and diagnostic findings that should be taken in to acc ount when interpreting T-Spot.TB refer to the most recent CDC guidance(http:/ww w.cdc.gov/nchstp/tb) for detailed recommendations about diagnosing TB infections (including disease) and selecting persons for testing. 1.) A false negative result can be caused by incorrect blood sample collection or improper handling of the specimen, affecting lymphocyte function. 2.) The performance of T-Spo t.TB has not been adequately evaluated with specimens from individuals younger than age 17 years, in women, and in patients with Hemophilia. 3.) A false positive result was obtained for T-Spot.TB when tested in subjects with M. xenopi, M. kansasii, and M. gordonae. While ESAT-8 and CFP-10 antigens are absent from BCG strains of M. bovis and from most environmental Mycobacteria, it is possible that a positive T-Spot.TB r esult may be due to infection with M. kansasii, M. szulgai, M. gordonae, or M. marinum. Alternative tests would be required if these infections are suspected. 4.) A negative test result d oes not exclude the possibility of exposure to, or infection with M. tuberculosis. Patients with recent exposure to TB infected individuals exhibiting a negative T-Spot.TB re sult should be considered for retesting within 6 weeks or if other relevant clinical symptoms indicate possible infection. 5.) A positive test result d oes not rule in active TB disease; other tests should be performed to confirm the diagnosis of active TB disease such as sputum smear and culture, PCR and chest radiography. 6.) T-Spot.TB test has not b een evaluated in subjects who have received > 1 month Anti-TB therapy. 7.) Refrigerated and frozen samples are not recommended for use with T-Spot.TB test. Specimen Blood Performing Organization Address City/State/ZIP Code Phon e Number 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 Post-procedure diagnosis: unchanged Indications: Indication: prophylaxis Anesthesia: Anesthesia: local infiltration Local anesthetic: lidocaine 1% without e pinephrine Anesthetic total (ml): 5 Pre-medications: Pre-medications used?: no IV Fluids: IV fluids administered: no Sedation: Patient sedated?: no Procedure Details: Preparation: patient was prepped and devin ped in usual sterile fashion Lumbar space: L4-L5 interspace Patient's position: sitting Needle gauge: 22 Needle type: Quincke needle Needle length (in): 3.5 Number of attempts: 3 or more Estimated blood loss: minimal Post-procedure: site cleaned and adhesiv e bandage applied Complications: yes Complications noted: Patient experienced right leg nerve pain "shooting pain" Patient instructed to lie flat for (hour s): 2 hours Patient Disposition: Disposition: remain in inpatient bed Comments: Failed procedure: attempted 2x in first spot and 1x above that with patient reporting leg nerve pain both sp ots. Arranged in fluoroscopy. TMP HIV 1/2 Ag&Ab Path Interp (09/19/2020 4:42 AM CDT)Only the most recent of2 resultswithin the time period is included. HIV 1/2 Ag&Ab Negative for HIV-1 antigen a nd HIV-1/HIV-2 antibodies. No laboratory evidence of HIV infection. If acute HIV infection is suspected, consider testing for HIV-1 RNA. [facility] Interp Comment: CENTER JUAN J GEE, Dictated by: JUAN J GEE, Dictated Date/Time: 09.21.19 12:39 PM CDT Transcribed Date/Time: 09.20.2020 12:39 PM CDT Electronically Signed By: JUAN J GEE on 12:39 PM Specimen Blood Performing Organization Address City/State/ZIP Code Phon e Number [facility] [place] [address] [place] [address] HIV-1/2 Antigen and Antibodies, Fourth Generation (09/19/2020 4:42 AM CDT)Only the most recent of2 resultswithin the time period is included. HIV 1/2 Ag & Ab, Non Reactive Non Reactive [facility] 4th Gen Comment: CENTER Performed at: [facility] [address] [place] [address] Specimen Blood Performing Organization Address City/State/ZIP Code Phon e Number [facility] [place] [address] [place] [address] CT Chest Pulmonary Embolism with Contrast (09/18/2020 9:13 PM CDT) Specimen Impressions [id number] - 09/18/2020 9:[address] evidence of pulmonary embolism. Enlarged lymph nodes in the lower left n paula and left axilla. 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 Findings: Pulmonary arteries: There is no CT evide nce of pulmonary embolism. Tubes and Lines: Right PICC line is pres ent with tip terminating in the superior vena cava. Heart and Mediastinum: The heart is stab le in size. There is no pericardial effusion. Atherosclerotic calcifications are present in the thoracic aorta and [place] coronary arteries. 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 Pleura: There is no pneumothorax or pleu ral effusion. Lungs and Airways: The central airways a re patent. Emphysema is present. Bones and Soft Tissues: Enlarged lymph n odes are present in the lower left neck and left axilla. The visualized osseous structures are unchanged. Upper Abdomen: Evaluation of the upper a bdomen is limited by technique. The visualized upper abdomen is unchanged. 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 Findings: Pulmonary arteries: There is no CT evide nce of pulmonary embolism. Tubes and Lines: Right PICC line is pres ent with tip terminating in the superior vena cava. Heart and Mediastinum: The heart is stab le in size. There is no pericardial effusion. Atherosclerotic calcifications are present in the thoracic aorta and [place] coronary arteries. Postsurgical changes related to coronary artery grafting are again pr esent. Pleura: There is no pneumothorax or pleu ral effusion. Lungs and Airways: The central airways a re patent. Emphysema is present. Bones and Soft Tissues: Enlarged lymph n odes are present in the lower left neck and left axilla. The visualized osseous structures are unchanged. Upper Abdomen: Evaluation of the upper a bdomen is limited by technique. The visualized upper abdomen is unchanged. IMPRESSION: No CT evidence of pulmonary embolism. Enlarged lymph nodes in the lower left n paula and left axilla. Performing Organization Address City/State/ZIP Code Phon e Number [id number] MRI Brain with and without Contrast (09/18/2020 8:44 PM CDT) Specimen Impressions [id number] - 09/18/2020 8:56 PM CDT No evidence of acute intracranial findin g including evidence of mass, hemorrhage, or recent infarction. Age-indeterminate but likely chronic are a of encephalomalacia and hemosiderin staining involving the LEFT frontal lobe which could be due to prior infarction. 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 Technique: MRI of the brain with and wit hout contrast. Findings: The study is degraded by motion artifact . There is a focal region of hemosiderin s taining and encephalomalacia involving the LEFT superior frontal lobe is identified. There is no evidence of mass, recent hem orrhage or recent infarction. There are scattered T2 white matter hype rintensities which are nonspecific and may represent microvascular ischemic changes. The brain parenchyma is otherwise unrema rkable. The ventricles, sulci and cisterns are w ithin normal limits and stable. The major flow voids of the skull base a re intact. The extracranial structures are unremark able. 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 Technique: MRI of the brain with and wit hout contrast. Findings: The study is degraded by motion artifact . There is a focal region of hemosiderin s taining and encephalomalacia involving the LEFT superior frontal lobe is identified. There is no evidence of mass, recent hem orrhage or recent infarction. There are scattered T2 white matter hype rintensities which are nonspecific and may represent microvascular ischemic changes. The brain parenchyma is otherwise unrema rkable. The ventricles, sulci and cisterns are w ithin normal limits and stable. The major flow voids of the skull base a re intact. The extracranial structures are unremark able. IMPRESSION: No evidence of acute intracranial findin g including evidence of mass, hemorrhage, or recent infarction. Age-indeterminate but likely chronic are a of encephalomalacia and hemosiderin staining involving the LEFT frontal lobe which could be due to prior infarction. Performing Organization Address City/State/ZIP Code Phon e Number [id number] HIV-1 DNA and RNA Qual PCR (09/18/2020 2:25 PM CDT) HIV-1 DNA/RNA Undetected Undetected [place] [facility] Qual-[place] Comment: [facility] Repeat testing in 1 to 2 months is recommended for tho se at risk of HIV-1 infection. ADDITIONAL INFORMATION ------ This test was performed using the Chung RealTime HIV- 1 Qualitative assay ([facility] [place] , [place]). This test was developed and its performance characteri stics determined by [facility] in a manner consistent with CLIA requirements. This test has not been cleared or approv ed by the U.S. Food and Drug Administration. Test Performed by: [facility] [address] [facility], [place] [address] [employer] Robot Operator: Alonso Neville M.D. Ph.D.; CLIA# [id number] Specimen Blood Performing Organization Address City/[facility]/ZIP Code Phon e Number [facility] CANCER Unless otherwise noted, [address] all lab tests performed by: Division of Pathology and Laboratory Medicine [facility] [place] Rapid Plasma Reagin (RPR) [Syphilis SCREENING] (09/18/2020 2:25 PM CDT) Pathologist Sig nature RPR Screening Non Reactive Non Reactive [facility] Specimen Blood Performing Organization Address [facility] Phon e Number [facility] [address] [address] TMP RPR Path Interpretation (09/18/2020 2:25 PM CDT) TMP RPR Path The Rapid Plasma Reagin (RPR ) assay is negative. If a syphilis infection is suspected, please perform a Treponemal specific screening assay. [facility] Interpretation Comment: CENTER JUAN J GEE, Dictated by: JUAN J GEE, Dictated Date/Time: 09.20.19 16:45 PM CDT Transcribed Date/Time: 09.19.2020 16:45 PM CDT Electronically Signed By: JUAN J GEE on 021 16:45 PM Specimen Blood Performing Organization Address City/[facility] Phon e Number [facility] [place] [id number] [place] [address] (ABNORMAL) PTH Intact (09/18/2020 2:25 PM CDT) Pathologist Sig nature PTH Intact 157.2 (H) 15.0 - 65.0 pg/mL [facility] Specimen Blood Performing Organization Address City/[facility] Phon e Number [facility] CANCER Unless otherwise noted, [place] [address] [place] all lab tests performed by: Division of Pathology and Laboratory Medicine [facility] [place] Hepatitis C Virus RNA Detect/Quant (09/18/2020 2:25 PM CDT)Only the most recent of2 resultswithin the time period is included. [facility] HepC RNA PCR Undetected Undetected IU/mL [facility] Comment: [facility] CENTER Result in log IU/mL is Undetected. ADDITIONAL INFORMATION ------ The quantification range of this assay is 15 to 100,00 0,000 IU/mL (1.18 log to 8.00 log IU/mL). Testing was perfor med using the melissa HCV test ([employer]) with the melissa [employer] System. Test Performed by: [facility] [address] [place] [id number] [employer] Robot Operator: Alonso Neville M.D. Ph.D.; CLIA# [id number] Specimen Blood Performing Organization Address City/State/ZIP Code Phon e Number [facility] CANCER Unless otherwise noted, [place] [address] [place] all lab tests performed by: Division of Pathology and Laboratory Medicine [facility] CMV Ab IgG+IgM Path Review (09/18/2020 2:25 PM CDT) [facility] CMV Panel [place] Positive IgG with low IgM matute ggests previous infection. IVIG can give false positivity. [facility] High titers of IgG can give false negative IgM. Therefore, active disease is [facility]ENTER possible but less likely with this pattern. Reviewed and Electronically signed by Pathologist: JYOTI MCCALL MD #[id number] Comment: Test performed by an immunoa ssay intended for the qualitative detection of IgG and IgM antibodies to Cytomegalovirus (CMV) in human serum. When equivocal results are obtained, another specimen should be collected 10-14 days later. JYOTI MCCALL MD - [id number] Dictated by: MD Matthew LUCERO [id number] Dictated Date/Time: 09.22.19 16:16 PM CDT Transcribed Date/Time: 09.21.2020 16:16 PM CDT Electronically Signed By: ESTRELLITA MCCALL MD - [id number] on 09.21.2020 16:16 PM Specimen Blood Performing Organization Address City/[facility]/ZIP Code Phon e Number [facility] CANCER Unless otherwise noted, [address] all lab tests performed by: Division of Pathology and Laboratory Medicine [address] [place] (ABNORMAL) CMV Ab IgG+IgM (09/18/2020 2:25 PM CDT) Pathologist Sig nature CMV IgM Int Negative Negative [facility] CMV IgG Int Positive (A) Negative [facility] Specimen Blood Performing Organization Address [facility] Phon e Number [facility] CANCER Unless otherwise noted, [address] all lab tests performed by: Division of Pathology and Laboratory Medicine [facility] Peripheral Smear for Bone Marrow (09/18/2020 2:25 PM CDT) Pathologist Sig nature Peripheral Smear PS[facility] Specimen Blood Performing Organization Address [facility] Phon e Number [facility] CANCER Unless otherwise noted, [address] all lab tests performed by: Division of Pathology and Laboratory Medicine [address] [facility] (ABNORMAL) HTLV I/II Ab Confirmation Only (09/18/2020 2:25 PM CDT) HTLV I/II Positive (A) Negative [facility] Comment: [facility] REPORTABLE DISEASE. Confirmatory test is the definit rere test for HTLV-I/-II infection status. HTLV I/II See FootnoteComment: [facility] RESULT: Reactivity at [facility] p19-I/II, p24-I/II, gp46-I/II, gp21-I/II HTLV I/II HTLV-II [facility] Comment: [facility] ADDITIONAL INFORMATION ------ This test was developed and its performance characteri stics determined by [facility] in a manner consistent with CLIA requirements. This test has not been cleared or approv ed by the U.S. Food and Drug Administration. Test Performed by: [facility] [place] [address] Assembly Line Robot Operator: Alonso Neville M.D. Ph.D.; CLIA# [id number] Specimen Blood Performing Organization Address [facility] Phon e Number [facility] CANCER Unless otherwise noted, [address] all lab tests performed by: Division of Pathology and Laboratory Medicine [address] [place] (ABNORMAL) Transferrin with TIBC (09/18/2020 2:25 PM CDT) Pathologist Sig nature Transferrin 197 (L) 200 - 360 mg/dL [facility] TIBC 276 250 - 450 mcg/dL [facility] Specimen Blood Performing Organization Address [facility] Phon e Number [facility] CANCER Unless otherwise noted, [address] all lab tests performed by: Division of Pathology and Laboratory Medicine [address] [place] Iron Level (09/18/2020 2:25 PM CDT) Pathologist Sig nature Iron 59 59 - 158 mcg/dL [facility] TER Specimen Blood Performing Organization Address [facility] Phon e Number [facility] CANCER Unless otherwise noted, [address] all lab tests performed by: Division of Pathology and Laboratory Medicine [facility] [place] (ABNORMAL) HTLV I/II Ab Screen with Confirm (09/18/2020 10:37 AM CDT) HTLV I/II Ab Reactive (A) Negative [facility] Comment: CANCER CENTER Confirmatory test is ordered. Confirmatory test is t he definitive test for HTLV-I/-II infection status. Test Performed by: [facility] [place] [address] Assembly Line Robot Operator: Alonso Neville M.D. Ph.D.; CLIA# [id number] Specimen Blood Performing Organization Address [facility] Phon e Number [facility] CANCER Unless otherwise noted, [address] all lab tests performed by: Division of Pathology and Laboratory Medicine [facility] [place] (ABNORMAL) Hepatitis C Virus Ab Screen, Reflex HCV PCR (09/18/2020 10:37 AM CDT)Only the most recent of2 resultswithin the time period is included. HCV Ab Screen-[place] Reactive (A) Negative [facility] Comment: CANCER CENTER Supplemental testing for HCV RNA is ordered to rule ou t active HCV infection. Uqhbeo-[id number] ratio is >=8.00. Test Performed by: [facility] [address] [facility], [place] [address] Assembly Line Robot Operator: Alonso Neville M.D. Ph.D.; CLIA# [id number] Specimen Blood Performing Organization Address City/State/ZIP Code Phon e Number [facility] CANCER Unless otherwise noted, [place] [address] CENTER all lab tests performed by: Division of Pathology and Laboratory Medicine [address] [facility] Echocardiogram 2D Complete (09/17/2020 4:14 PM CDT) Pathologist Sig nature EF 60 ISCV Specimen Narrative ISCV - 09/17/2020 5:36 PM CDT Echocardiographic Report Interpretation Summary A complete two-dimensional transthoracic echocardiogram was performed (2D, M- mode, Spectral and color Doppler). There is no comparison study available. Normal left ventricular size and systoli c function. LV ejection fraction calculated using th e bi-plane method of disks is 60 %. The RV is dilated. There is severe tricuspid regurgitation. There is no pericardial effusion. Left Ventricle: Normal left ventricular size and systoli c function. LV ejection fraction calculated using the bi-plane method of disks is 60 %. Flattened septum is consistent with RV pressure/volume overload. I WMSI = 1.00 % Normal = 1 00 Segments Size X - Cannot 2 - 1-2 small Interpret 1 - Normal Hypokine tic 3 - Akinetic 4 - Dyskinetic3- 5 moderate 5 - Aneurysmal 6-14 large 15-16 diffuse 3D imaginD volumes were not performed in this st udy. Cardiac Mechanics/Speckle Tracking Imagi ng: Speckle tracking imaging was not perform ed in this study. (Mister Bell Study). Diastology: Impaired LV relaxation pattern of diasto lic dysfunction, Doppler suggests normal LA pressures. Right Ventricle: The RV is dilated. Normal RV systolic fu nction using TAPSE criteria. The right ventricular systolic function is normal. RVFAC=44%. Atria: The left atrial size is normal. Right At rium is dilated. There is a catheter in the superior vena cava that is seen protruding into the right atrium. Mitral Valve: The mitral valve is grossly normal. Tricuspid Valve: The tricuspid valve is not well visualiz ed, but is grossly normal. Severity of tricuspid insufficiency precludes reliable non-invasive measurement of RVSP. There is severe tricuspid regurgitation. Aortic Valve: The aortic valve is trileaflet. The aort ic valve opens well. Pulmonic Valve: The pulmonic valve is not well seen, but is grossly normal. Great Vessels: The aortic root is normal size. The infe rior vena cava demonstrates normal size and decreased respiratory variation. Pericardium/Pleural: There is no pericardial effusion. Preliminary Reviewer Preliminary Interpretation: Sole rosario MD. MMode/2D Measurements IVSd: 1.2 cm LVIDd: 4.8 cm LVIDs: 3.1 cm LVPWd: 1.2 cm FS: 34.6 % LA dimension: 5.0 cm LVOT diam: 2.3 cm EDV(MOD-A4C): 107.9 ml LVOT area: 4.0 cm2 ESV(MOD-A4C): 40.5 ml EF(MOD-A4C): 62.4 % EDV(MOD-A2C): 77.9 ml ESV(MOD-A2C): 32.7 ml EDV(MOD-bp): 92.9 ml EF(MOD-A2C): 58.0 % ESV(MOD-bp): 37.1 ml EF(MOD-bp): 60.1 % LAV(MOD-A2C): 87.4 ml LAV(MOD-A4C): 22.4 ml RV EDA_phl: 42.7 cm2 LAV(MOD-bp): 52.3 ml RV ESA_phl: 24.0 cm2 RV FAC_phl: 43.9 % LAV(MOD-bp) Indexed: 25.4 ml/m2 EDV (MOD-bp) Index: 45.1 ml/m2 ESV (MOD-bp) Index: 18.0 ml/m2 TAPSE (>1.6): 2.4 cm Doppler Measurements MV E max rodriguez: 60.7 cm/sec MV V2 max: 116.3 cm/sec MV A max rodriguez: 70.8 cm/sec MV max P.4 mmHg MV E/A: 0.86 MV V2 mean: 59.1 cm/sec MV mean P.7 mmHg MV V2 VTI: 36.4 cm MVA(VTI): 2.8 cm2 MV dec time: 0.26 sec Ao V2 max: 124.6 cm/sec Ao max P.2 mmHg Ao V2 mean: 88.8 cm/sec Ao mean P.4 mmHg Ao V2 VTI: 26.7 cm BINU(I,D): 3.8 cm2 BINU(V,D): 3.3 cm2 LV V1 max P.3 mmHg SV(LVOT): 102.7 ml LV V1 mean P.3 mmHg LV V1 max: 103.5 cm/sec LV V1 mean: 71.3 cm/sec LV V1 VTI: 25.8 cm PA V2 max: 112.6 cm/sec TR max rodriguez: 267.9 cm/sec PA max P.1 mmHg TR max P.7 mmHg PA V2 mean: 68.6 cm/sec RVSP(TR): 36.7 mmHg PA mean P.2 mmHg PA V2 VTI: 17.2 cm RAP systole: 8.0 mmHg BINU Index (I,D): 1.9 BINU Index (V,D): 1.6 Dimensionless Index: 0.83 E/e' (avg): 7.6 E/e' (lat): 5.2 E/e' (sept): 14.5 Procedure Note Adrian Green MD - 09/17/2020 Echocardiographic Report Interpretation Summary A complete two-dimensional transthoracic echocardiogram was performed (2D, M- mode, Spectral and color Doppler). There is no comparison study available. Normal left ventricular size and systoli c function. LV ejection fraction calculated using th e bi-plane method of disks is 60 %. The RV is dilated. There is severe tricuspid regurgitation. There is no pericardial effusion. Left Ventricle: Normal left ventricular size and systoli c function. LV ejection fraction calculated using the bi-plane method of disks is 60 %. Flattened septum is consistent with RV pressure/volume overload. I WMSI = 1.00 % Normal = 100 Segments Size X - Cannot 2 - 1-2 small Interpret 1 - Normal Hypokinetic 3 - Akinetic 4 - Dyskinetic3-5 moderate 5 - Aneurysmal 6-14 large 15-16 diffuse 3D imaginD volumes were not performed in this st udy. Cardiac Mechanics/Speckle Tracking Imagi ng: Speckle tracking imaging was not perform ed in this study. (GE Study). Diastology: Impaired LV relaxation pattern of diasto lic dysfunction, Doppler suggests normal LA pressures. Right Ventricle: The RV is dilated. Normal RV systolic fu nction using TAPSE criteria. The right ventricular systolic function is normal. RVFAC=44%. Atria: The left atrial size is normal. Right At rium is dilated. There is a catheter in the superior vena cava that is seen protruding into the right atrium. Mitral Valve: The mitral valve is grossly normal. Tricuspid Valve: The tricuspid valve is not well visualiz ed, but is grossly normal. Severity of tricuspid insufficiency precludes reliable non-invasive measurement of RVSP. There is severe tricuspid regurgitation. Aortic Valve: The aortic valve is trileaflet. The aort ic valve opens well. Pulmonic Valve: The pulmonic valve is not well seen, but is grossly normal. Great Vessels: The aortic root is normal size. The infe rior vena cava demonstrates normal size and decreased respiratory variation. Pericardium/Pleural: There is no pericardial effusion. Preliminary Reviewer Preliminary Interpretation: Sole rosario MD. MMode/2D Measurements IVSd: 1.2 cm LVIDd: 4.8 cm LVIDs: 3.1 cm LVPWd: 1.2 cm FS: 34.6 % LA dimensio n: 5.0 cm LVOT diam: 2.3 cm EDV(MOD-A4C ): 107.9 ml LVOT area: 4.0 cm2 ESV(MOD-A4C ): 40.5 ml EF(MOD-A4C) : 62.4 % EDV(MOD-A2C): 77.9 ml ESV(MOD-A2C): 32.7 ml EDV(MOD-bp) : 92.9 ml EF(MOD-A2C): 58.0 % ESV(MOD-bp) : 37.1 ml EF(MOD-bp): 60.1 % LAV(MOD-A2C): 87.4 ml LAV(MOD-A4C): 22.4 ml RV EDA_phl: 42.7 cm2 LAV(MOD-bp): 52.3 ml RV ESA_phl: 24.0 cm2 RV FAC_phl: 43.9 % LAV(MOD-bp) Indexed: 25.4 ml/m2 EDV (MOD-bp) Index: 45.1 ml/m2 ESV (MOD-bp ) Index: 18.0 ml/m2 TAPSE (>1.6): 2.4 cm Doppler Measurements MV E max rodriguez: 60.7 cm/sec MV V2 max: 116.3 cm/ sec MV A max rodriguez: 70.8 cm/sec MV max P.4 mmHg MV E/A: 0.86 MV V2 mean: 59.1 cm/ sec MV mean P.7 mmHg MV V2 VTI: 36.4 cm MVA(VTI): 2.8 cm2 MV dec time: 0.26 sec Ao V2 max: 124.6 cm/ sec Ao max P.2 mmHg Ao V2 mean: 88.8 cm/ sec Ao mean P.4 mmHg Ao V2 VTI: 26.7 cm BINU(I,D): 3.8 cm2 BINU(V,D): 3.3 cm2 LV V1 max P.3 mmHg SV(LVOT): 102.7 ml LV V1 mean P.3 mmHg LV V1 max: 103.5 cm/sec LV V1 mean: 71.3 cm/sec LV V1 VTI: 25.8 cm PA V2 max: 112.6 cm/sec TR max rodriguez: 267.9 cm /sec PA max P.1 mmHg TR max P.7 mmHg PA V2 mean: 68.6 cm/sec RVSP(TR): 36.7 mmHg PA mean P.2 mmHg PA V2 VTI: 17.2 cm RAP systole: 8.0 mmHg BINU Index (I,D): 1.9 BINU Index (V,D): 1.6 Dimensionless Index: 0.83 E/e' (avg): 7.6 E/e' (lat): 5.2 E/e' (sept): 14.5 Performing Organization Address City/State/ZIP Code Phon e Number ISCV Confirm ABORh (09/17/2020 2:16 PM CDT) Pathologist [facility] ABORh Confirm. A POS [facility] ER Specimen Blood Performing Organization Address City/State/ZIP Code Phon e Number [facility] CANCER Unless otherwise noted, [place] [address] CENTER all lab tests performed by: Division of Pathology and Laboratory Medicine [address] [place] Influenza A/B + COVID-19 Asymptomatic- L (09/17/2020 1:42 PM CDT) COVID19 Not Detected Not Detected [facility] (SARS-CoV-2) [facility] Influenza A Not Detected Not Detected [facility] Influenza B Not Detected Not Detected [facility] COVID19 SARS Inpatient Admission [facility] Indication [facility] Inf AB+Cov19 See Note [facility] Comment Comment: [facility] The melissa SARS-CoV-2 & Influ kaleb A/B nucleic acid test for use on the melissa Flaquita System is a multiplex real-time RT-PCR assay intended for the simultaneous, qualitative detection and differential of SARS-CoV-2 (COVID-19), influenza A, and influenza B viral RNA in nasopharyngeal swabs in transport media from patients suspected of having a respiratory infection with one of these viruses or possibly exposure to COVID-19 by a healthcare provider. Results must be interpreted within the context of all relevant clinical and labora tory findings and should not form the sole basis for a diagnosis or treatment decision. A fact sheet for patients provided by the calenderer ([employer]) can be reviewed at: https://www.fda.gov/media/308788/download A fact sheet for Health Care providers is provided by the calenderer ([employer]) and can be reviewed at: https://www.fda.gov/media/794527/download Influenza A and Influenza B negative results should be considered presumptive in samples that have a positive SARS-CoV-2 result. If co-infection with influenza A or influenza B virus is suspected in babita ples with a positive SARS-CoV-2 results, the sample should be re-tested with another approved influenza te st. This assay has been authoriz ed by the FDA for use only under Emergency Use Authorization (EUA) in laboratories that have been CLIA-certified to perform moderate-complexity and high-complexity tests. The Micro[facility] at [facility], CLIA Accreditation # [id number] and CAP Accreditation #[id number], verified the performance characteristics of this assay. Internal controls are used to monitor all stages of the test process. Specimen Nasopharyngeal Swab Performing Organization Address City/State/ZIP Code Phon e Number [facility] CANCER Unless otherwise noted, [place], [place] [id number] [place] [address] all lab tests performed by: Division of Pathology and Laboratory Medicine [address] [facility] PETCT Initial Treatment Strategy (09/16/2020 11:58 AM CDT) Specimen Addenda Addendum by Juan Garza MD on 3:32 PM CDT Impression should indicate: FDG avid josephine nopathy on both sides of the diaphragm associated with soft tissue mu scle involvement in the left proximal upper arm medially, left sterno cleidomastoid muscle as described above in keeping with the diagnosis of d iffuse large B-cell lymphoma. Impressions [id number] - 09/16/2020 3:18 PM CDT FDG avid adenopathy on both sides of the diaphragm associated with soft tissue muscle involvement in the left proximal upper arm medially as described above in keeping with the diagnosis of Hodgkin's ly mphoma. Narrative [id number] - 09/16/2020 3:18 PM CDT FULL RESULT: Examination: FDG PET/CT, 09/16/2020 11:58 AM Clinical History: 69-year-old male patie nt with left neck mass, biopsy demonstrating diffuse large B cell lymphoma. Indication: Initial treatment strategy. Comparison: Ultrasound of the head and n paula 09/10/2020 Technique: F-18 fluorodeoxyglucose (FDG) 10.8 mCi was administered intravenously via left antecubital vein. To allow for distribution and uptake of radiotracer, the patient was asked to rest quietly f or approximately 60-90 minutes. PET/CT imaging was performed from the vertex to pelvis. Serum blood glucose at the time of the injection was 105 mg/dL. CT scanning was done for attenuation correction, image registration, and diagnosis with scan parameters optimized to minimize radiation exposure to the patient. SUV measurements are reported as maximum SUV based on body weight unless otherwise specified. Findings: Head and Neck: Multi confluent adenopath y is seen predominating the left neck with the largest confluence seen on image 110 measuring 7.5 x 5.3 cm maximum SUV of 27.9. The adenopathy extends to the left posterior cervical triangle and sternoc leidomastoid muscle, left supraclavicular tammy region. The left supraclavicular adenopathy on image 146 measures 3.7 x 2.6 cm maximum SUV of 28.8. FDG avid adeno evelyne is seen also in the right neck lev el 2 and level 3, associated with increased activity in both tonsils. No hypermetabolic lesion seen in the bra in. Sinuses are well-aerated. Chest: FDG avid adenopathy seen in the l eft subpectoral and left axillary tammy regions. The largest confluence of left subpectoral adenopathy is seen on image #163 measuring 5.6 x 3.5 cm with a maximum SUV of 25.9. Discrete left axillary nod es are seen on image 164 maximum SUV of 21.2. No FDG avid nodes are seen in the right axilla or mediastinal tammy regions. The most distal left axillary node is seen on image 185 with a maximum SUV of 16.5. No suspicious FDG avid pulmonary nodules seen. No pleural or pericardial effusion identified. 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 Abdomen and Pelvis: Normal FDG activity is seen in the liver, spleen, adrenals, and pancreas. Mild tracer excretion is seen in the kidneys. Enlarged FDG avid nodes are seen in the left inguinal tammy region best seen on image #400 measuring 2.3 x 1.9 cm with a maximum SUV of 22.3. FDG avid left obturator node seen on image 274 has a maximum SUV of 12.6. No FDG avid nodes are seen in the abdomi nal tammy regions. Musculoskeletal: No FDG avid lytic or bl astic lesion identified within the scanned skeletal structures. FDG avid adenopathy is seen in the soft tissues around the left medial upper arm best seen on imag e #223 this nodule measures 2.5 cm maxim um SUV of 11.2 and just superior to this the muscles in the deltoid region have soft tissue involvement on image 195 which shows a maximum SUV of 23.1. Procedure Note Juan Garza MD - 09/16/2020 FULL RESULT: Examination: FDG PET/CT, 09/16/2020 11:58 AM Clinical History: 69-year-old male patie nt with left neck mass, biopsy demonstrating diffuse large B cell lymphoma. Indication: Initial treatment strategy. Comparison: Ultrasound of the head and n paula 09/10/2020 Technique: F-18 fluorodeoxyglucose (FDG) 10.8 mCi was administered intravenously via left antecubital vein. To allow for distribution and uptake of radiotracer, the patient was asked to rest quietly for approximately 60-90 minutes. PET/CT gauri ging was performed from the vertex to pelvis. Serum blood glucose at the time of the injection was 105 mg/dL. CT scanning was done for attenuation correction, image registration, and diagnosis with scan parameters optimized to minimize radiation exposure to the patient. SUV measurements are reported as maximum SUV based on body weight unless otherwise specified. Findings: Head and Neck: Multi confluent adenopath y is seen predominating the left neck with [...] right neck level 2 and level 3, associated wit h increased activity in both tonsils. No hypermetabolic lesion seen in the bra in. Sinuses are well-aerated. Chest: FDG avid adenopathy seen in the l eft subpectoral and left axillary tammy regions. The largest confluence of left subpectoral adenopathy is seen on image #163 measuring 5.6 x 3.5 cm with a maximum SUV of 25.9. Discrete left axillary nodes are seen on image 164 maximum SUV of 21.2. No FDG avid nodes are seen in the right axilla or mediastinal tammy regions. The most distal left axillary node is seen on image 185 with a maximum SUV of 16.5. No suspicious FDG avid pulmonary nodules seen. No pleural or pericardial effusion identified. 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 Abdomen and Pelvis: Normal FDG activity is seen in the liver, spleen, adrenals, and pancreas. Mild tracer excretion is seen in the kidneys. Enlarged FDG avid nodes are seen in the left inguinal tammy region best seen on image #400 measuring 2.3 x 1.9 cm with a maximum SUV of 22.3. FDG avid left obturator node seen on image 274 has a maximum SUV of 12.6. No FDG avid nodes are seen in the abdomi nal tammy regions. Musculoskeletal: No FDG avid lytic or bl astic lesion identified within the scanned skeletal structures. FDG avid adenopathy is seen in the soft tissues around the left medial upper arm best seen on image #223 this nodule measures 2.5 cm maximum SUV of 11 .2 and just superior to this the muscles in the deltoid region have soft tissue involvement on image 195 which shows a maximum SUV of 23.1. IMPRESSION: FDG avid adenopathy on both sides of the diaphragm associated with soft tissue muscle involvement in the left proximal upper arm medially as described above in keeping with the diagnosis of Hodgkin's lymphoma. Performing Organization Address City/State/ZIP Code Phon e Number [id number] US Fine Needle Aspiration (09/10/2020 2:51 PM CDT) Specimen Impressions [id number] - 09/10/2020 4:28 PM CDT 1. Right mid and superior neck enlarged nodes with hilar architecture measuring up to 4.8 cm. 1.5 cm enlarged left superior neck node. 2. 11.5 cm left neck mass adherent to the left sternocleidomastoid muscle. Fine-needle aspiration showed crushed cells so core biopsy was performed. Narrative [id number] - 09/10/2020 4:28 PM CDT FULL RESULT: Examination: US HEAD NECK SOFT TISSUE, U S SOFT TISSUE CORE NEEDLE BIOPSY, US FINE NEEDLE ASPIRATION on 09/10/2020 2:51 PM Clinical History: Mass of neck Indication: Biopsy Comparison: None. Technique: Real-time ultrasound examinat ion of the neck soft tissues was performed. FINDINGS: Right Lateral Neck: There are multiple e nlarged nodes with hilar architecture. A right superior neck node measures 4.8 x 2.4 x 1.3 cm for example. Left Lateral Neck: The large left neck m ass extends from superior to inferior and also extends posteriorly in the neck. It measures at least 11.5 x 9 x 4.8 cm. It demonstrates very heterogeneous echotex ture. Mildly increased flow is present w ithin it. It appears to be infiltrating the left sternocleidomastoid muscle. The more superior enlarged node with hilar architecture measures 1.5 x 1.3 x 1.1 cm. Midline neck: An enlarged hypoechoic pre sumed lymph node node measures 1.7 x 1.5 x 1.0 cm. Consent: Informed consent was obtained f rom the patient for ultrasound-guided fine-needle aspiration and core needle biopsy of the 11.5 cm left neck mass. Procedure: The left neck was prepped. Un nahomy ultrasound guidance, lidocaine 1 percent was administered. A 20-gauge needle was used to make one pass which was nondiagnostic. 2 more passes using 20-gauge n eedles were made into an adjacent area o f the mass. Crushed cells were noted. A 17-gauge sheath with 18-gauge by 2 cm throw coaxial Temno core biopsy system was used to make 4 passes. The patient tolera jigar the procedure well with no immediate complications. Procedure Note Yaneth Aguilera MD - 09/10/2020 FULL RESULT: Examination: US HEAD NECK SOFT TISSUE, U S SOFT TISSUE CORE NEEDLE BIOPSY, US FINE NEEDLE ASPIRATION on 09/10/2020 2:51 PM Clinical History: Mass of neck Indication: Biopsy Comparison: None. Technique: Real-time ultrasound examinat ion of the neck soft tissues was performed. FINDINGS: Right Lateral Neck: There are multiple e nlarged nodes with hilar architecture. A right superior neck node measures 4.8 x 2.4 x 1.3 cm for example. Left Lateral Neck: The large left neck m ass extends from superior to inferior and also extends posteriorly in the neck. It measures at least 11.5 x 9 x 4.8 cm. It demonstrates very heterogeneous echotexture. Mildly increased flow is present within it. It appears to be infiltrating the left sternocleidomastoid muscle. The more superior enlarged node with hilar architecture measures 1.5 x 1.3 x 1.1 cm. Midline neck: An enlarged hypoechoic pre sumed lymph node node measures 1.7 x 1.5 x 1.0 cm. Consent: Informed consent was obtained f rom the patient for ultrasound-guided fine-needle aspiration and core needle biopsy of the 11.5 cm left neck mass. Procedure: The left neck was prepped. Un nahomy ultrasound guidance, lidocaine 1 percent was administered. A 20-gauge needle was used to make one pass which was nondiagnostic. 2 more passes using 20-gauge needles were made into an adjacent area of the mass. Crush ed cells were noted. A 17-gauge sheath with 18-gauge by 2 cm throw coaxial Temno core biopsy system was used to make 4 passes. The patient tolerated the procedure well with no immediate complications. IMPRESSION: 1. Right mid and superior neck enlarged nodes with hilar architecture measuring up to 4.8 cm. 1.5 cm enlarged left superior neck node. 2. 11.5 cm left neck mass adherent to t he left sternocleidomastoid muscle. Fine-needle aspiration showed crushed cells so core biopsy was performed. Performing Organization Address City/State/ZIP Code Phon e Number [id number] US HEAD NECK SOFT TISSUE (09/10/2020 2:51 PM CDT) Specimen Impressions [id number] - 09/10/2020 4:28 PM CDT 1. Right mid and superior neck enlarged nodes with hilar architecture measuring up to 4.8 cm. 1.5 cm enlarged left superior neck node. 2. 11.5 cm left neck mass adherent to the left sternocleidomastoid muscle. Fine-needle aspiration showed crushed cells so core biopsy was performed. Narrative [id number] - 09/10/2020 4:28 PM CDT FULL RESULT: Examination: US HEAD NECK SOFT TISSUE, U S SOFT TISSUE CORE NEEDLE BIOPSY, US FINE NEEDLE ASPIRATION on 09/10/2020 2:51 PM Clinical History: Mass of neck Indication: Biopsy Comparison: None. Technique: Real-time ultrasound examinat ion of the neck soft tissues was performed. FINDINGS: Right Lateral Neck: There are multiple e nlarged nodes with hilar architecture. A right superior neck node measures 4.8 x 2.4 x 1.3 cm for example. Left Lateral Neck: The large left neck m ass extends from superior to inferior and also extends posteriorly in the neck. It measures at least 11.5 x 9 x 4.8 cm. It demonstrates very heterogeneous echotex ture. Mildly increased flow is present w ithin it. It appears to be infiltrating the left sternocleidomastoid muscle. The more superior enlarged node with hilar architecture measures 1.5 x 1.3 x 1.1 cm. Midline neck: An enlarged hypoechoic pre sumed lymph node node measures 1.7 x 1.5 x 1.0 cm. Consent: Informed consent was obtained f rom the patient for ultrasound-guided fine-needle aspiration and core needle biopsy of the 11.5 cm left neck mass. Procedure: The left neck was prepped. Un nahomy ultrasound guidance, lidocaine 1 percent was administered. A 20-gauge needle was used to make one pass which was nondiagnostic. 2 more passes using 20-gauge n eedles were made into an adjacent area o f the mass. Crushed cells were noted. A 17-gauge sheath with 18-gauge by 2 cm throw coaxial Temno core biopsy system was used to make 4 passes. The patient tolera jigar the procedure well with no immediate complications. Procedure Note Yaneth Aguilera MD - 09/10/2020 FULL RESULT: Examination: US HEAD NECK SOFT TISSUE, U S SOFT TISSUE CORE NEEDLE BIOPSY, US FINE NEEDLE ASPIRATION on 09/10/2020 2:51 PM Clinical History: Mass of neck Indication: Biopsy Comparison: None. Technique: Real-time ultrasound examinat ion of the neck soft tissues was performed. FINDINGS: Right Lateral Neck: There are multiple e nlarged nodes with hilar architecture. A right superior neck node measures 4.8 x 2.4 x 1.3 cm for example. Left Lateral Neck: The large left neck m ass extends from superior to inferior and also extends posteriorly in the neck. It measures at least 11.5 x 9 x 4.8 cm. It demonstrates very heterogeneous echotexture. Mildly increased flow is present within it. It appears to be infiltrating the left sternocleidomastoid muscle. The more superior enlarged node with hilar architecture measures 1.5 x 1.3 x 1.1 cm. Midline neck: An enlarged hypoechoic pre sumed lymph node node measures 1.7 x 1.5 x 1.0 cm. Consent: Informed consent was obtained f rom the patient for ultrasound-guided fine-needle aspiration and core needle biopsy of the 11.5 cm left neck mass. Procedure: The left neck was prepped. Un nahomy ultrasound guidance, lidocaine 1 percent was administered. A 20-gauge needle was used to make one pass which was nondiagnostic. 2 more passes using 20-gauge needles were made into an adjacent area of the mass. Crush ed cells were noted. A 17-gauge sheath with 18-gauge by 2 cm throw coaxial Temno core biopsy system was used to make 4 passes. The patient tolerated the procedure well with no immediate complications. IMPRESSION: 1. Right mid and superior neck enlarged nodes with hilar architecture measuring up to 4.8 cm. 1.5 cm enlarged left superior neck node. 2. 11.5 cm left neck mass adherent to t he left sternocleidomastoid muscle. Fine-needle aspiration showed crushed cells so core biopsy was performed. Performing Organization Address City/State/ZIP Code Phon e Number [id number] US Soft Tissue Core Needle Biopsy (09/10/2020 2:51 PM CDT) Specimen Impressions [id number] - 09/10/2020 4:28 PM CDT 1. Right mid and superior neck enlarged nodes with hilar architecture measuring up to 4.8 cm. 1.5 cm enlarged left superior neck node. 2. 11.5 cm left neck mass adherent to the left sternocleidomastoid muscle. Fine-needle aspiration showed crushed cells so core biopsy was performed. Narrative [id number] - 09/10/2020 4:28 PM CDT FULL RESULT: Examination: US HEAD NECK SOFT TISSUE, U S SOFT TISSUE CORE NEEDLE BIOPSY, US FINE NEEDLE ASPIRATION on 09/10/2020 2:51 PM Clinical History: Mass of neck Indication: Biopsy Comparison: None. Technique: Real-time ultrasound examinat ion of the neck soft tissues was performed. FINDINGS: Right Lateral Neck: There are multiple e nlarged nodes with hilar architecture. A right superior neck node measures 4.8 x 2.4 x 1.3 cm for example. Left Lateral Neck: The large left neck m ass extends from superior to inferior and also extends posteriorly in the neck. It measures at least 11.5 x 9 x 4.8 cm. It demonstrates very heterogeneous echotex ture. Mildly increased flow is present w ithin it. It appears to be infiltrating the left sternocleidomastoid muscle. The more superior enlarged node with hilar architecture measures 1.5 x 1.3 x 1.1 cm. Midline neck: An enlarged hypoechoic pre sumed lymph node node measures 1.7 x 1.5 x 1.0 cm. Consent: Informed consent was obtained f rom the patient for ultrasound-guided fine-needle aspiration and core needle biopsy of the 11.5 cm left neck mass. Procedure: The left neck was prepped. Un nahomy ultrasound guidance, lidocaine 1 percent was administered. A 20-gauge needle was used to make one pass which was nondiagnostic. 2 more passes using 20-gauge n eedles were made into an adjacent area o f the mass. Crushed cells were noted. A 17-gauge sheath with 18-gauge by 2 cm throw coaxial Temno core biopsy system was used to make 4 passes. The patient tolera jigar the procedure well with no immediate complications. Procedure Note Yaneth Aguilera MD - 09/10/2020 FULL RESULT: Examination: US HEAD NECK SOFT TISSUE, U S SOFT TISSUE CORE NEEDLE BIOPSY, US FINE NEEDLE ASPIRATION on 09/10/2020 2:51 PM Clinical History: Mass of neck Indication: Biopsy Comparison: None. Technique: Real-time ultrasound examinat ion of the neck soft tissues was performed. FINDINGS: Right Lateral Neck: There are multiple e nlarged nodes with hilar architecture. A right superior neck node measures 4.8 x 2.4 x 1.3 cm for example. Left Lateral Neck: The large left neck m ass extends from superior to inferior and also extends posteriorly in the neck. It measures at least 11.5 x 9 x 4.8 cm. It demonstrates very heterogeneous echotexture. Mildly increased flow is present within it. It appears to be infiltrating the left sternocleidomastoid muscle. The more superior enlarged node with hilar architecture measures 1.5 x 1.3 x 1.1 cm. Midline neck: An enlarged hypoechoic pre sumed lymph node node measures 1.7 x 1.5 x 1.0 cm. Consent: Informed consent was obtained f rom the patient for ultrasound-guided fine-needle aspiration and core needle biopsy of the 11.5 cm left neck mass. Procedure: The left neck was prepped. Un nahomy ultrasound guidance, lidocaine 1 percent was administered. A 20-gauge needle was used to make one pass which was nondiagnostic. 2 more passes using 20-gauge needles were made into an adjacent area of the mass. Crush ed cells were noted. A 17-gauge sheath with 18-gauge by 2 cm throw coaxial Temno core biopsy system was used to make 4 passes. The patient tolerated the procedure well with no immediate complications. IMPRESSION: 1. Right mid and superior neck enlarged nodes with hilar architecture measuring up to 4.8 cm. 1.5 cm enlarged left superior neck node. 2. 11.5 cm left neck mass adherent to t he left sternocleidomastoid muscle. Fine-needle aspiration showed crushed cells so core biopsy was performed. Performing Organization Address City/State/ZIP Code Phon e Number [id number] Pathology Biopsy Interpretation (09/10/2020 1:52 PM CDT) Submitted Mass of neck [R22.1] [facility] Clinical History Diagnosis Neck mass, left, core biopsies: [facility] Electronically signed by Nimo DIFFUSE LARGE B-CELL LYMPHO CHENG, NON-GERMINAL CENTER B-CELL PHENOTYPE, see comment MD Neela on 09/15/2020 at 5 :57 MYC and BCL-2 expression id entified by immunohistochemistry, supporting a double expressor phenotype PM Comment The histologic sections show fragments of soft tissue diffusely and extensively involved by lymphoma. The lymphoma is comprised of sheets of large lymphoid cells with pleomorphic nuclei, irregular nucl [facility] ear contours, finely dispers ed or vesicular chromatin, frequent single and prominent eosinophilic nucleoli and ample amounts of pale cytoplasm. Mitotic figures are easily identifiable and apoptotic bod ies are numerous. There is marked crush artifact in focal areas along with extensive fibrosis in the background. Immunohistochemical staining shows that the neoplastic cells are positive for CD20, CD21 (30%, weak, subset), CD45, BCL2, MUM1 (~80%), MYC (strong, ~80%) and BCL2, and negative for CD5, CD10, CD30, BCL6 (~20%, below the cutoff), c yclin D1, keratin and panmelanoma 1 cocktail. The CD3 and CD5 stains highlight scattered admixed T lymphocytes. The CD21 stain is mostly negative for follicular dendritic cell meshworks. The neoplas tic cells have a proliferation index of approximately 80% by Ki-67 staining. MARCOS in situ hybridization is negative. Per the clinical notes,, kady vidales is a 69-year-old man presenting with a 11.5 cm left neck mass adherent to the left sternocleidomastoid muscle, right mid and superior neck enlarged nodes with hilar archite cture (~ 4.8 cm) and 1.5 cm enlarged left superior neck node. He has no prior diagnosis of lymphoma. Overall, the morphologic and immunophenotypic findings support diffuse large B- cell lymphoma..The immunophenotypic findings support diffuse large B-cell lymphoma of non germinal center like phenotype, a ccording to the method of Erich olson et al. (Blood. 2003;103(1);275-82) . Fluorescence in situ hybridization for rearrangements involving MYC, BCL2 and BCL6 are underway; the results will be reported separately and the diagnosis revised if needed. Gross Description A: [facility] Neck, left, left neck mass a pprox = 11.5 x 9.0 cm: 4 cores of pink soft tissue that aggregate to 1.7 x 0.6 x 0.1 cm, entirely submitted in A1. KR Disclaimer "Some tests reported here [facility] may have been developed and performance characteristics determined by [facility] Pathology and Laboratory Medicine. These tests have not been specifically cleared or approved by the U.S. Food and Drug Administration. If applicable, controls were reviewed and showed appropriate reactivity." Specimen Tissue - Neck, Left Performing Organization Address City/State/ZIP Code Phon e Number [facility] [place] [address] [address] (ABNORMAL) Cytology Image-Guided FNA Interpretation (09/10/2020 12:14 PM CDT) Gross Description A: [facility] Specimens procured: 2 Diff Quik; 8 Pap Stain Slides 10 ml, clear pink fluid in RPMI 1 Cytospin Size: 11.5 x 9 cm Immediate assessment for specimen adequacy was made x1 by Dr. Carpenter. Immediate Assessment Borderline [facility] cellularity, further review needed, additional tissue recommended Major Classification Indeterminate (A) [facility] El ectronically signed by Sugey Carpenter MD on 09/10/2020 at 4 :22 PM Diagnosis A. Soft tissue, left neck, fine needle aspiration: [facility] Electronically signed by Sugey Correa Rare atypical degenerated ce lls in a background of necrosis and crushed lymphoid tissue (see comment) MD Jayden on 09/10/2020 at 4 :22 PM Comment The paucity of viable [facility] tissue and poor cell preservation preclude a more definitive diagnosis. Please see this patient's concurrently acquired core needle biopsy ([id number]) for further evaluation. Retained/Biomarker SR: 11 S [facility] Testing Informational Points Some tests reported [facility] here may have been developed and performance characteristics determined by [facility] Pathology and Laboratory Medicine. These tests have not been specifically cleared or approved by the U.S. Food and Drug Administration. Specimen Fine Needle Asp - Neck, Left Performing Organization Address City/State/ZIP Code Ph[place] [address] [address] CG MYC IGH CEP8 FISH Interpretation and Report (09/10/2020 11:53 AM CDT) Specimen Narrative This result has an attachment that is no t available. Cytogenetics Specimen Collection -FFPE (09/10/2020 11:53 AM CDT)Only the most recent of2 resultswithin the time period is included. Pathologist Marcie Blanchard Ap Link [id number] [facility] Comment: CANCER CENTER Collection date/time has bee n modified to: 11:53:00. Previous collection date/time: 11:53:00. Corrected from [id number] [NA] on 09/21/20 12:21:01 CD T by Loly Mckeon. Cytogenetics Yes [facility] (Received) Comment: CANCER CENTER Collection date/time has bee n modified to: 11:53:00. Previous collection date/time: 11:53:00. Corrected from Yes [NA] on 09/21/20 12:21:01 CDT by Loly Benson. Specimen FFPE Performing Organization Address City/[facility] Phon e Number [facility] CANCER Unless otherwise noted, [place] [address] CENTER all lab tests performed by: Division of Pathology and Laboratory Medicine [address] [place] CG IGH/BCL2 T(14;18) TISSUE FISH INTERPRETATION AND REPORT (09/10/2020 7:17 AM CDT) Specimen Narrative This result has an attachment that is no t available. CG MYC Tissue FISH Interpretation and Report (09/10/2020 7:17 AM CDT) Specimen Narrative This result has an attachment that is no t available. CG BCL6 Tissue FISH Interpretation and Report (09/10/2020 7:17 AM CDT) Specimen Narrative This result has an attachment that is no t available. Hepatitis C Virus Ab (09/09/2020 11:05 AM CDT) Pathologist Sig nature HCVAb Received See NoteComment: [facility] HCVAb was sent to a CANCER CENTER reference lab for testing. Expect results on Hepatitis C Virus Ab Screen w/Reflex HCV PCR within 96 hours. Specimen Blood Performing Organization Address City/State/ZIP Code Phon e Number [facility] CANCER Unless otherwise noted, [place] [address] CENTER all lab tests performed by: Division of Pathology and Laboratory Medicine [address] (ABNORMAL) Hemoglobin A1c (09/09/2020 11:05 AM CDT) Pathologist Sig nature A1C 6.3 (H) 4.3 - 5.6 % [place] Comment: HbA1c values >=6.5% are diagnostic of diabetes mellitu s. Diagnosis should be confirmed by repeat testing. 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 Advance Directives: 11/02/2020 12:00 AM Medical Po wer of Medical Power of Belt Brander Belt Brander Code Status Date Activated Date Inactivated Comments Full Code 10/07/2020 12:02 PM 11/14/2020 4:41 PM Full Code 09/17/2020 12:45 PM 09/23/2020 7:59 PM Care 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
--- OUTSIDE RECORDS SUMMARY | 2021-04-21 02:17 | XMS REPORT | Continuity of Care Document ---
:1950 Author Organization [facility] t Address [address] [place] [address] Care Team Providers Name Role Phone [phone] Primary Care Physician Unavailable ANGELES Attending Clinician Unavailable Missael TORIBIO Attending Clinician Unavailable HAYDEN Attending Clinician Unavailable SYSTEM, NOT IN Attending Clinician Unavailable KEIKO Attending Clinician Unavailable Spencer Rai Attending Clinician MEGHAN Attending Clinician Unavailable Meghan JIMENEZ Attending Clinician Marcial JIMENEZ Attending Clinician Sarah LOVE Attending Clinician SARAH Attending Clinician Unavailable Mulugeta MIXON G Attending Clinician Unavailable Angelic aMrquez Attending Clinician Cj MIXON C Attending Clinician Unavailable FATMATA Attending Clinician Unavailable Fatmata LOVE Attending Clinician Jesika LOVE Attending Clinician Milton LOVE Attending Clinician Lit MIXON, Robert Attending Clinician Unavailable ALEX, Juan Attending Clinician Unavailable Alex LOVE, Juan Attending Clinician Phong MIXON, Y Attending Clinician Unavailable SPENCER BLACKMON Attending Clinician Unavailable Herber LOVE PhD, Frank Attending Clinician Elliott DUNN Attending Clinician Unavailable Junior Jarrett MD Attending Clinician Dionna LOVE, Elliott Attending Clinician Vivien LOVE, Atilio Attending Clinician Lavonne LOVE Attending Clinician Hayden LOVE PhD Attending Clinician Estefania Borjas MD, Elliott Attending Clinician Luciano RIVERA Attending Clinician Stefanie Spain Attending Clinician Flash Shah Attending Clinician Galileo MARKETING COMMUNICATIONS MANAGER, R Attending Clinician Conrad RT, L Attending Clinician Unavailable Breezy LOVE Attending Clinician Yue ALEX Attending Clinician STANFORD Attending Clinician Unavailable Francisca HERNANDEZ Attending Clinician Malini LOVE Attending Clinician Unavailable Nas BLANKENSHIP, E Attending Clinician Stanford BLANKENSHIP Attending Clinician Elliott PAYNE Attending Clinician Unavailable AMANDA Attending Clinician Unavailable FANG Attending Clinician Unavailable Aimee Mensah Attending Clinician FIDENCIO Attending Clinician Unavailable CARLOS Attending Clinician Unavailable Bryan RN, L Attending Clinician Unavailable CEM Attending Clinician Unavailable Cem BLANKENSHIP Attending Clinician BETH Attending Clinician Unavailable Aimee Alfaro MD Attending Clinician Tony Angulo Attending Clinician Aimee ALFARO JR Attending Clinician Unavailable TONY MAYS Attending Clinician Unavailable Aparna Moreno Attending Clinician BRIAN ARRIOLA Attending Clinician Unavailable Brian Arriola MD Attending Clinician Jennifer JIMENEZ Attending Clinician FELIX ARIAS Attending Clinician Unavailable Margaret LOVE Attending Clinician Viola Ching PT Attending Clinician Carlota MIXON Attending Clinician Unavailable CARLOTA Attending Clinician Unavailable Jodi CASTAÑEDA Attending Clinician Unavailable ADIA Attending Clinician Unavailable ADIA Attending Clinician Unavailable Only, Test Attending Clinician Unavailable Adia BARRIOS Attending Clinician Doctor Unassigned, Name Attending Clinician Unavailable ANGELES Admitting Clinician Unavailable Missael TORIBIO Admitting Clinician Unavailable KEIKO Admitting Clinician Unavailable Elliott PAYNE Admitting Clinician Unavailable SARAH Admitting Clinician Unavailable Payers Payer Name Policy Type Policy Number Effective Date Expiration Date S ource [employer] CHOICE [id number] 2020 MEDICARE PPO 00:00:00 [employer] MEDICARE ADV [id number] 2020 00:00:00 [facility] [id number] 2016 MEDICARE GOLD 00:00:00 Problems Condition Condition Condition Status Onset Resolution Last Treating Co mments Source Name Details Category Date Date Treatment Clinician Date Paroxysmal Paroxysmal Disease Active 2020-03 Last M D atrial atrial 2-21 Assessmen Anderso fibrillati fibrillati 00:00: t & Plan: n on on Formattin g of this note might be different from the original. Patient was seen by inpatient cardiolog ist in September 2020 for atrial fibrillat ion with last EKG done October 28, 2020 showing return to sinus rhythm. Patient is asymptoma tic for palpitati ons or irregular heartbeat s. He is currently on carvedilo l 6.25 mg p.o. twice daily in addition to Eliquis 5 mg p.o. twice daily with no bleeding problems. Unfortun ately [place] therefore we do not have any updated labs nor EKG since his visit in October. Patient will continue his current regimen and I have confirmed that he has establish ed a follow-up with his local cardiolog ist in March for further managemen t. 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 09-29 Jay rso neoplastic neoplastic 00:00: n disease disease 00 Acute Acute Disease Active respirator respirator 09-29 An derso y failure y failure 00:00: n with with 00 hypoxia hypoxia Chronic Chronic Disease Active MD obstructiv obstructiv 6-23 An derso e e 00:00: n pulmonary pulmonary 00 disease disease 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:00: n lymphoma lymphoma 00 Mass of Mass of Disease Active neck neck 6-14 Anderso 00:00: n 00 History of History of Disease Active M D myocardial myocardial 6-14 An derso infarction infarction 00:00: n 00 History of History of Disease Active M D placement placement 6-14 Jay rso of stent of stent 00:00: n for for 00 coronary coronary artery artery disease disease Wound Wound Disease Active Univers cellulitis cellulitis 1-24 it y of after after 00:00: [place] surgery surgery 00 Medical Branch Wound Wound Disease Active Univers cellulitis cellulitis 1-24 it y of after after 00:00: [place] surgery surgery 00 Medical Branch Coronary Coronary Disease Active 2016-03 Unive rs artery artery 2-13 ity of disease disease 00:00: [place] involving involving 00 Medi [place] coronary coronary artery of artery of [place] heart heart without without angina angina pectoris pectoris Dyspnea Dyspnea Disease Active 2016-03 Univers 2-13 ity of 00:00: [place] 00 Medical Branch COPD COPD Disease Active 2016-03 Univers (chronic (chronic 2-13 ity of obstructiv obstructiv [place] Medical pulmonary pulmonary Bran ch disease) disease) 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 chronic 2-13 ity of kidney kidney 00:00: [place] disease disease 00 Medical Branch HTN HTN Disease Active 2016-03 Univers (hypertens (hypertens 2-13 it y of ion) ion) 00:00: [place] 00 Medical Branch Coronary Coronary Disease Active 2016-03 Unive rs artery artery 2-13 ity of disease disease 00:00: [place] involving involving 00 Medi [place] coronary coronary artery of artery of [place] heart heart without without angina angina pectoris pectoris 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 2-11 it y of t status t status 00:00: [place] 00 Medical Branch ACUTE Diagnosis Active 2016-07-19 Mem oria CHEST PAIN 3-22 21:59:00 l ACUTE 00:00: [place] CHEST PAIN 00 Active 06/15/2016 [facility] NSTEMI Diagnosis Active 2016-06-15 Mem oria 3-22 11:09:00 l NSTEMI 00:00: [place] 00 Active 06/15/2016 [facility] Bloodstrea Bloodstrea Disease Active M D m m Anderso infection infection n due to due to central central venous venous catheter catheter Pneumonia Pneumonia Disease Active MD due to due to Anderso Pseudomona Pseudomona n s s Sepsis Sepsis Disease Active MD caused by caused by Jay rso Pseudomona Pseudomona n s s aeruginosa aeruginosa Acute Acute Disease Active kidney kidney Anderso failure failure n with with lesion of lesion of tubular tubular necrosis necrosis Persistent Persistent Disease Active M D atrial atrial Anderso fibrillati fibrillati n on on Toxic Toxic Disease Active metabolic metabolic Jay rso encephalop encephalop n athy athy Ischemic Ischemic Disease Active cardiomyop cardiomyop An derso athy athy n Chronic Chronic Disease Active systolic systolic Herman o congestive congestive n heart heart failure failure Other Other Disease Active 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 Other Other Disease Active MD elevated elevated Herman o white white n blood cell blood cell count count Electrolyt Electrolyt Disease Active M D e and e and Anderso fluid fluid n disorders disorders not not elsewhere elsewhere classified classified Hepatitis Hepatitis Disease Active B carrier B carrier Jay rso n History of History of Disease Active M D hepatitis hepatitis Jay rso C C n Long-term Long-term Disease Active MD current current Anderso use of use of n rituximab rituximab Patient Patient Disease Active MD immunocomp immunocomp An derso romised romised n Acute Acute Disease Active injury of injury of Jay rso kidney kidney n Hyperurice Hyperurice Disease Active M D damien damien Anderso n Chronic Chronic Disease Active Last MD right-side right-side Assessmen Andcharles forbes heart d heart t & Plan: n failure failure Formattin g of this note might be different from the original. Echocardi ogram done November 06, 2020 shows patient has preserved ejection fraction of 50% but evidence of right ventricul ar systolic function being reduced with elevated RVSP. Right heart catheteri zation done showed evidence of mild pulmonary hypertens ion with a pulmonary capillary wedge pressure of 11 mmHg. Patient continues to have problems with productiv e cough, chronic shortness of breath and orthopnea for which he is on furosemid e 80 mg p.o. twice daily. I explained to patient that based off of his heart catheteri zation a lot of his symptoms may be secondary to his emphysema as described by the pulmonary team or primary lung disease for which he needs to follow-up with his private pulmonary physician . Unfortuna tely since patient does not have any updated labs over the last 4 months and is not complaini ng of any worsening of his edema or shortness of breath I have asked for him to continue taking his current regimen of furosemid e 80 mg p.o. twice daily. 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 Mild Problem Resolve 2018-08-06 2018-08-06 Memoria chronic d 03-27 13:34:33 13:34:33 l obstructiv Mild 00:00: Rafat n e chronic 00 pulmonary obstructiv disease e (disorder) pulmonary disease (disorder) Resolved 03/27/2012 Problem 08/06/2018 [facility] Allergies, Adverse Reactions, Alerts Allergy Allergy Status Severity Reaction(s) Onset Inactive Treating Comm ents Source Name Type Date Date Clinician Povidone Propensi Active Hives Univer s -Iodine ty to 4-13 ity of adverse 00:00: [place] reaction 00 Medical s Branch POVIDONE DRUG Active Hives Univers -IODINE INGREDI 4-13 ity of 00:00: [place] 00 [facility] Branch Betadine Betadine Active Mo Crawford NO KNOWN Allergy Active [facility] Social History Social Habit Start Date Stop Date Quantity Comments Source History of tobacco Cigarette Smoker MD Barrientos use Alcohol intake 2021-03-16 2021-03-16 Ex-drinker MD Camryn archuleta 00:00:00 00:00:00 (finding) Cigarettes smoked 2020-09-07 2020-09-07 MD Jay duke current (pack per 00:00:00 00:00:00 day) - Reported Cigarette 2020-09-07 2020-09-07 MD Barrientos pack-years 00:00:00 00:00:00 Tobacco use and 2020-09-07 2020-09-07 Smokeless MD Sutton on exposure 00:00:00 00:00:00 tobacco non-user Tobacco Comment 2020-09-07 2020-09-07 stopped smoking MD Chapo fine 00:00:00 00:00:00 15 years ago Alcohol Comment 2017-03-02 2017-03-02 Quit in 2007 Univers ity of 00:00:00 00:00:00 [facility] [facility] Sex Assigned At [birth year] MD [place] on 00:00:00 00:00:00 Smoking Status Start Date Stop Date Source Ex-smoker 2020-09-07 00:00:00 2020-09-07 00:00:00 MD Dereck kim Medications Ordered Filled Start Stop Current Ordering Indication Dosage Frequency Signature Comments Components Source Medication Medication Date Date Medication? Clinician (SIG) Name Name senna-docus Yes 1{tbl} Take 1 ate 8-21 tablet by Camryn (sennosides 14:36: mouth n -docusate 14 twice sodium) 8.6 daily. mg-50 mg Hold for tablet loose stools. entecavir Yes Hepatitis B .5mg Take 1 MD (BARACLUDE) 8-20 carrier tablet And erso 0.5 mg 00:00: (0.5 mg) n tablet 00 by mouth every 72 hours. To prevent viral infection entecavir 2020- No Hepatitis B .5mg Take 1 MD (BARACLUDE) 8- 08-20 carrier tablet An derso 0.5 mg 00:00: 00:00 (0.5 mg) n tablet 00 :00 by mouth every 72 hours. torsemide Yes Diffuse 20mg Take 1 MD (DEMADEX) 8-12 high grade tablet (20 Anderso 20 mg 00:00: B-cell mg) by n tablet 00 lymphoma mouth daily. Hold for systolic blood pressure less than 110 mmHg. apixaban Yes Diffuse 5mg Take 1 MD (ELIQUIS) 5 8-11 high grade tablet (5 Anderso mg tablet 00:00: B-cell mg) by n 00 lymphoma mouth every 12 (twelve) hours. ipratropium Yes Acute 3mL Inhale 1 M D -albuterol 11-04 respiratory vial (3 Anderso (DUO-NEB) 00:00: failure mL) by n 0.5 mg-2.5 00 with nebulizati mg/3 mL hypoxia on every 6 nebulizer (six) solution hours. metoprolol Yes Diffuse 25mg Take 1 MD tartrate 11-04 high grade tablet (25 Anderso (LOPRESSOR) 00:00: B-cell mg) by n 25 mg 00 lymphoma mouth tablet every 12 (twelve) hours. Hold for systolic blood pressure less than 110 mmHg or heart rate less than 60 beats per minute. predniSONE 2020- No Diffuse 100mg Take 2 MD (DELTASONE) 09-23 high grade tablets Anderso 50 mg 00:00: 00:00 B-cell (100 mg) n tablet 00 :00 lymphoma by mouth daily for 1 dose. On 09/23 entecavir 2020- No Hepatitis B .5mg Take 1 MD (BARACLUDE) 6 08-20 carrier tablet An derso 0.5 mg 00:00: 00:00 (0.5 mg) n tablet 00 :00 by mouth daily. sodium Yes Diffuse 10mL Swish and MD chloride-so 09-21 high grade spit 10 mL Anderso dium 00:00: B-cell every 6 n bicarbonate 00 lymphoma (six) (SALT AND hours. SODA) Use 2 mouthwash teaspoonfu ls and dissolve in 1 quart (960 mL) of warm water. To prevent mouth sores ondansetron Yes Diffuse 8mg Take 1 M D (Zofran) 8 09-21 high grade tablet (8 Anderso mg tablet 00:00: B-cell mg) by n 00 lymphoma mouth every 8 (eight) hours as needed for nausea or vomiting (first choice). prochlorper Yes Diffuse 5mg Take 1 M D azine - high grade tablet (5 And erso (Compazine) 00:00: B-cell mg) by n 5 mg tablet 00 lymphoma mouth every 6 (six) hours as needed for nausea or vomiting. valACYclovi Yes Diffuse 500mg Take 1 MD r (VALTREX) 09-21 high grade tablet Anderso 500 mg 00:00: B-cell (500 mg) n tablet 00 lymphoma by mouth daily. To prevent viral infections . sacubitriL- 2020- No History of 1{tbl} Take 1 MD valsartan 09-21 myocardial tablet by Anderso (ENTRESTO) 00:00: 00:00 infarction mouth n 24 mg-26 mg 00 :00 every 12 tab per (twelve) tablet hours. Hold for systolic blood pressure less than 110mmHg. carvedilol 2020- No History of 3.125mg Take 1 MD (COREG) 09-21 myocardial tablet And erso 3.125 mg 00:00: 00:00 infarction (3.125 mg) n tablet 00 :00 by mouth twice daily. Hold for systolic blood pressure less than 110 mmHg or heart rate less than 60 bpm furosemide 2020- No History of 40mg Take 1 MD (LASIX) 40 09-21 myocardial tablet (40 Anderso mg tablet 00:00: 00:00 infarction mg) by n 00 :00 mouth twice daily. Hold for systolic blood pressure less than 110 mmHg senna-docus 2020- No Diffuse 1{tbl} Take 1 MD ate 09-21 high grade tablet by And erso (SENOKOT-S) 00:00: 00:00 B-cell mouth 2 n 8.6 mg-50 00 :00 lymphoma (two) mg tablet times a day as needed for constipati on. Hold for loose stools. predniSONE 2020- No Lymphoma 50mg Take 1 MD (DELTASONE) 09-16 extent of tablet (50 Anderso 50 mg 00:00: 00:00 involvement mg) by n tablet 00 :00 not mouth specified today 09/16/20. Starting on the day of chemothera py take 2 tablets (100 mg) every day for 5 days. traMADol Yes TAKE 1 MD (ULTRAM) 50 - TABLET BY And erso mg tablet 00:00: MOUTH n 00 THREE TIMES DAILY NEEDED FOR PAIN Entresto 2020- No TAKE 1 MD 49-51 mg 08-28 TABLET BY Dereck sherman tab per 00:00: 00:00 MOUTH n tablet 00 :00 TWICE DAILY amoxicillin 2020- No TAKE 1 MD -clavulanat 08-27 TABLET BY Yamilet dias 00:00: 00:00 MOUTH n (AUGMENTIN) 00 :00 TWICE 500 mg-125 DAILY WITH mg per FOOD tablet carvedilol 2020- No TAKE 1 MD (COREG) 08-12 TABLET BY Herman pemberton 6.25 mg 00:00: 00:00 MOUTH n tablet 00 :00 TWICE DAILY WITH FOOD furosemide 2020- No TAKE 1 MD (LASIX) 80 -12 09- TABLET BY And erso mg tablet 00:00: 00:00 MOUTH n 00 :00 TWICE DAILY clopidogrel Yes TAKE 1 MD (PLAVIX) 75 4-23 TABLET BY And erso mg tablet 00:00: MOUTH n 00 DAILY montelukast Yes TAKE 1 MD (SINGULAIR) 4-23 TABLET BY And erso 10 mg 00:00: MOUTH n tablet 00 DAILY potassium Yes 10meq Take 10 MD chloride 4-23 mEq by Anderso (MICRO-K) 00:00: mouth n 10 mEq CR 00 daily. capsule Hold for serum potassium greater than 4.5 mEq/L tamsulosin 2020- No TAKE 1 MD (FLOMAX) 4-23 - CAPSULE BY Jay rso 0.4 mg 24 [...] 2020- No TAKE 1 MD (DEMADEX) 3-14 09-16 TABLET BY Jay rso 20 mg 00:00: 00:00 MOUTH n tablet 00 :00 TWICE DAILY aspirin 81 2020- No 81mg Take 81 mg MD mg EC 2- 08-21 by mouth Anderso tablet 00:00: 00:00 daily. n 00 :00 metoprolol 2020- No TAKE 1 MD succinate 1-30 - TABLET BY Jay rso (TOPROL XL) 00:00: [...] tablet 00:00: every n 00 evening. albuterol 2020-0 Yes 1{puff} Inhale 1-2 MD (VENTOLIN 7-11 puffs by Herman o HFA,PROAIR 00:00: mouth n HFA) 90 00 every 6 mcg/puff (six) inhaler hours as needed for wheezing or shortness of breath. benzonatate 2020- No TAKE 2 C M D (TESSALON) 10-04- PO Q 8 H Jay rso 100 mg 00:00: 00:00 PRF COUGH n capsule 00 :00 AND CONGESTION dicyclomine 2019-2020- No TAKE 1 T M D (BENTYL) 20 10-04 PO Q 6 H And erso mg tablet 00:00: 00:00 PRN n 00 :00 tiotropium 2020-0 Yes [id number] 18ug Inhale 1 Univers (SPIRIVA 4-16 capsule ity of WITH 00:00: daily. [place] HANDIHALER) 00 Medical 18 mcg Branch inhalation tiotropium 2020-0 Yes [id number] 18ug Inhale 1 Univers (SPIRIVA 4-16 capsule ity of WITH 00:00: daily. [employer] HANDIHALER) 00 Medical 18 mcg Branch inhalation tiotropium 2020-0 Yes [id number] 18ug Inhale 1 Univers (SPIRIVA 4-16 capsule ity of WITH 00:00: daily. [place] HANDIHALER) 00 Medical 18 mcg Branch inhalation tiotropium 2020-0 Yes [id number] 18ug Inhale 1 Univers (SPIRIVA 4-16 capsule ity of WITH 00:00: daily. [place] HANDIHALER) 00 Medical 18 mcg Branch inhalation tiotropium 2020-0 Yes [id number] 18ug Inhale 1 Univers (SPIRIVA 4-16 capsule ity of WITH 00:00: daily. [employer] HANDIHALER) 00 Medical 18 mcg Branch inhalation tiotropium 2020-0 Yes [id number] 18ug Inhale 1 Univers (SPIRIVA 4-16 capsule ity of WITH 00:00: daily. [employer] HANDIHALER) 00 Medical 18 mcg Branch inhalation pantoprazol 2020-0 Yes [id number] 40mg Take 1 Univers e 1-30 tablet by ity of (PROTONIX) 00:00: mouth [place] 40 mg EC 00 daily. Medical tablet Branch pantoprazol 2020-0 Yes [id number] 40mg Take 1 Univers e 1-30 tablet by ity of (PROTONIX) 00:00: mouth [place] 40 mg EC 00 daily. Medical tablet Branch pantoprazol 2020-0 Yes [id number] 40mg Take 1 Univers e 1-30 tablet by ity of (PROTONIX) 00:00: mouth [place] 40 mg EC 00 daily. Medical tablet Branch fluticasone 2020-0 Yes 2{spray Use 2 Un osvaldo propionate 1-30 } Sprays in ity of 50 00:00: each [place] mcg/actuati 00 nostril Medic al on nasal daily. Branch spray pantoprazol 2020-0 Yes [id number] 40mg Take 1 Univers e 1-30 tablet by ity of (PROTONIX) 00:00: mouth [place] 40 mg EC 00 daily. Medical tablet Branch fluticasone 2020-0 Yes 2{spray Use 2 Un osvaldo propionate 1-30 } Sprays in ity of 50 00:00: each [place] mcg/actuati 00 nostril Medic al on nasal daily. Branch spray pantoprazol 2020-0 Yes [id number] 40mg Take 1 Univers e 1-30 tablet by ity of (PROTONIX) 00:00: mouth [place] 40 mg EC 00 daily. Medical tablet Branch fluticasone 2020-0 Yes 2{spray Use 2 Un osvaldo propionate 1-30 } Sprays in ity of 50 00:00: each [place] mcg/actuati 00 nostril Medic al on nasal daily. Branch spray pantoprazol 2020-0 Yes [id number] 40mg Take 1 Univers e 1-30 tablet by ity of (PROTONIX) 00:00: mouth [place] 40 mg EC 00 daily. Medical tablet Branch fluticasone 2020-0 Yes 2{spray Use 2 Un osvaldo propionate 1-30 } Sprays in ity of 50 00:00: each [place] mcg/actuati 00 nostril Medic al on nasal daily. Branch spray pantoprazol 2020-0 Yes [id number] 40mg Take 1 Univers e 1-30 tablet by ity of (PROTONIX) 00:00: mouth [place] 40 mg EC 00 daily. Medical tablet Branch fluticasone 2020-0 Yes 2{spray Use 2 Un osvaldo propionate 1-30 } Sprays in ity of 50 00:00: each [place] mcg/actuati 00 nostril Medic al on nasal daily. Branch spray pantoprazol 2020-0 Yes [id number] 40mg Take 1 Univers e 1-30 tablet by ity of (PROTONIX) 00:00: mouth [place] 40 mg EC 00 daily. Medical tablet Branch fluticasone 2020-0 Yes 2{spray Use 2 Un osvaldo propionate 1-30 } Sprays in ity of 50 00:00: each [place] mcg/actuati 00 nostril Medic al on nasal daily. Branch spray pantoprazol 2020-0 Yes [id number] 40mg Take 1 Univers e 1-30 tablet by ity of (PROTONIX) 00:00: mouth [place] 40 mg EC 00 daily. Medical tablet Branch fluticasone 2020-0 Yes 2{spray Use 2 Un osvaldo propionate 1-30 } Sprays in ity of 50 00:00: each [place] mcg/actuati 00 nostril Medic al on nasal daily. Branch spray fluticasone 2018-0 Yes [id number] 1{puff} Inhale 1 Univers -salmeterol 5-23 Puff every it y of (ADVAIR 00:00: 12 [place] DISKUS) 00 (twelve) Medical 250-50 hours. Branch mcg/dose inhalation disk fluticasone 2019-0 Yes [id number] 1{puff} Inhale 1 Univers -salmeterol 5-23 Puff every it y of (ADVAIR 00:00: 12 [place] DISKUS) 00 (twelve) Medical 250-50 hours. Branch mcg/dose inhalation disk fluticasone 2019-0 Yes [id number] 1{puff} Inhale 1 Univers -salmeterol 5-23 Puff every it y of (ADVAIR 00:00: 12 [place] DISKUS) 00 (twelve) Medical 250-50 hours. Branch mcg/dose inhalation disk fluticasone 2019-0 Yes [id number] 1{puff} Inhale 1 Univers -salmeterol 5-23 Puff every it y of (ADVAIR 00:00: 12 [place] DISKUS) 00 (twelve) Medical 250-50 hours. Branch mcg/dose inhalation disk fluticasone 2019-0 Yes [id number] 1{puff} Inhale 1 Univers -salmeterol 5-23 Puff every it y of (ADVAIR 00:00: 12 [place] DISKUS) 00 (twelve) Medical 250-50 hours. Branch mcg/dose inhalation disk fluticasone 2019-0 Yes [id number] 1{puff} Inhale 1 Univers -salmeterol 5-23 Puff every it y of (ADVAIR 00:00: 12 [place] DISKUS) 00 (twelve) Medical 250-50 hours. Branch mcg/dose inhalation disk fluticasone 2019-0 Yes [id number] 1{puff} Inhale 1 Univers -salmeterol 5-23 Puff every it y of (ADVAIR 00:00: 12 [place] DISKUS) 00 (twelve) Medical 250-50 hours. Branch mcg/dose inhalation disk fluticasone 2019-0 Yes [id number] 1{puff} Inhale 1 Univers -salmeterol 5-23 Puff every it y of (ADVAIR 00:00: 12 [place] DISKUS) 00 (twelve) Medical 250-50 hours. Branch mcg/dose inhalation disk fluticasone 2019-0 Yes [id number] 1{puff} Inhale 1 Univers -salmeterol 5-23 Puff every it y of (ADVAIR 00:00: 12 [place] DISKUS) 00 (twelve) Medical 250-50 hours. Branch mcg/dose inhalation disk fluticasone 2019-0 Yes [id number] 1{puff} Inhale 1 Univers -salmeterol 5-23 Puff every it y of (ADVAIR 00:00: 12 [place] DISKUS) 00 (twelve) Medical 250-50 hours. Branch mcg/dose inhalation disk fluticasone 2019-0 Yes [id number] 1{puff} Inhale 1 Univers -salmeterol 5-23 Puff every it y of (ADVAIR 00:00: 12 [place] DISKUS) 00 (twelve) Medical 250-50 hours. Branch mcg/dose inhalation disk fluticasone 2019-0 Yes [id number] 1{puff} Inhale 1 Univers -salmeterol 5-23 Puff every it y of (ADVAIR 00:00: 12 [place] DISKUS) 00 (twelve) Medical 250-50 hours. Branch mcg/dose inhalation disk fluticasone 2019-0 Yes [id number] 1{puff} Inhale 1 [facility] -salmeterol 5-23 Puff every it y of (ADVAIR 00:00: 12 [place] DISKUS) 00 (twelve) Medical 250-50 hours. Branch mcg/dose inhalation disk fluticasone 2019-0 Yes [id number] 1{puff} Inhale 1 [facility] -salmeterol 5-23 Puff every it y of (ADVAIR 00:00: 12 [place] DISKUS) 00 (twelve) Medical 250-50 hours. Branch mcg/dose inhalation disk fluticasone 2019-0 Yes [id number] 1{puff} Inhale 1 [facility] -salmeterol 5-23 Puff every it y of (ADVAIR 00:00: 12 [place] DISKUS) 00 (twelve) Medical 250-50 hours. Branch mcg/dose inhalation disk fluticasone 2019-0 Yes [id number] 1{puff} Inhale 1 [facility] -salmeterol 5-23 Puff every it y of (ADVAIR 00:00: 12 [place] DISKUS) 00 (twelve) Medical 250-50 hours. Branch mcg/dose inhalation disk clopidogrel 2017 Yes TK 1 T PO U nivers 75 mg 0-11 QD ity of tablet 00:00: [place] 00 [facility] clopidogrel 2017 Yes TK 1 T PO U nivers 75 mg 0-11 QD ity of tablet 00:00: [place] [facility] clopidogrel 2017 Yes TK 1 T PO U nivers 75 mg 0-11 QD ity of tablet 00:00: [place] [facility] clopidogrel 2017 Yes TK 1 T PO U nivers 75 mg 0-11 QD ity of tablet 00:00: [place] [facility] clopidogrel 2017- Yes TK 1 T PO U nivers 75 mg 0-11 QD ity of tablet 00:00: [place] [facility] clopidogrel 2017 Yes TK 1 T PO U nivers 75 mg 0-11 QD ity of tablet 00:00: [place] [facility] clopidogrel 2017- Yes TK 1 T PO U nivers 75 mg 0-11 QD ity of tablet 00:00: [place] [facility] clopidogrel 2017 Yes TK 1 T PO U nivers 75 mg 0-11 QD ity of tablet 00:00: [place] 00 [facility] clopidogrel 2017- Yes TK 1 T PO U nivers 75 mg 0-11 QD ity of tablet 00:00: [place] 00 [facility] clopidogrel 2017 Yes TK 1 T PO U nivers 75 mg 0-11 QD ity of tablet 00:00: [place] [facility] clopidogrel 2017 Yes TK 1 T PO U nivers 75 mg 0-11 QD ity of tablet 00:00: [place] [facility] clopidogrel 2016-03 Yes TK 1 T PO U nivers 75 mg 0-11 QD ity of tablet 00:00: [place] [facility] clopidogrel 2016-03 Yes TK 1 T PO U nivers 75 mg 0-11 QD ity of tablet 00:00: [place] [facility] clopidogrel 2016-03 Yes TK 1 T PO U nivers 75 mg 0-11 QD ity of tablet 00:00: [place] [facility] clopidogrel 2017 Yes TK 1 T PO U nivers 75 mg 0-11 QD ity of tablet 00:00: [place] [facility] clopidogrel 2016-03 Yes TK 1 T PO U nivers 75 mg 0-11 QD ity of tablet 00:00: [place] [facility] Branch aspirin 81 2017- Yes TK 1 T PO Un osvaldo mg EC 9-29 D ity of tablet 00:00: [place] [facility] aspirin 81 2017- Yes TK 1 T PO Un osvaldo mg EC 9-29 D ity of tablet 00:00: [place] [facility] Branch aspirin 81 2017-0 Yes TK 1 T PO Un osvaldo mg EC 9-29 D ity of tablet 00:00: [place] [facility] aspirin 81 2017-0 Yes TK 1 T PO Un osvaldo mg EC 9-29 D ity of tablet 00:00: [place] [facility] aspirin 81 2017-0 Yes TK 1 T PO Un osvaldo mg EC 9-29 D ity of tablet 00:00: [place] [facility] aspirin 81 2017-0 Yes TK 1 T PO Un osvaldo mg EC 9-29 D ity of tablet 00:00: [place] [facility] aspirin 81 2017-0 Yes TK 1 T PO Un osvaldo mg EC 9-29 D ity of tablet 00:00: [place] [facility] aspirin 81 2017-0 Yes TK 1 T PO Un osvaldo mg EC 9-29 D ity of tablet 00:00: [place] [facility] aspirin 81 2017-0 Yes TK 1 T PO Un osvaldo mg EC 9-29 D ity of tablet 00:00: [place] [facility] aspirin 81 2017-0 Yes TK 1 T PO Un osvaldo mg EC 9-29 D ity of tablet 00:00: [place] [facility] aspirin 81 Yes TK 1 T PO Un osvaldo mg EC 9- D ity of tablet 00:00: [place] [facility] aspirin 81 2017 Yes TK 1 T PO Un osvaldo mg EC 9-29 D ity of tablet 00:00: [place] [facility] aspirin 81 2017 Yes TK 1 T PO Un osvaldo mg EC 9 D ity of tablet 00:00: [place] [facility] aspirin 81 2017 Yes TK 1 T PO Un osvaldo mg EC 12-23 D ity of tablet 00:00: [place] [facility] aspirin 81 2017 Yes TK 1 T PO Un osvaldo mg EC 12-23 D ity of tablet 00:00: [place] [facility] aspirin 81 2017 Yes TK 1 T PO Un osvaldo mg EC 12-23 D ity of tablet 00:00: [place] [facility] traMADOL 50 Yes TK 1 T PO U nivers mg tablet 8-18 TID PRN ity of 00:00: [place] [facility] traMADOL 50 Yes TK 1 T PO U nivers mg tablet 8-18 TID PRN ity of 00:00: [place] [facility] traMADOL 50 Yes TK 1 T PO U nivers mg tablet 8-18 TID PRN ity of 00:00: [place] [facility] traMADOL 50 Yes TK 1 T PO U nivers mg tablet 8-18 TID PRN ity of 00:00: [place] [facility] traMADOL 50 Yes TK 1 T PO U nivers mg tablet 8-18 TID PRN ity of 00:00: [place] [facility] traMADOL 50 Yes TK 1 T PO U nivers mg tablet 8-18 TID PRN ity of 00:00: [place] [facility] traMADOL 50 Yes TK 1 T PO U nivers mg tablet 8-18 TID PRN ity of 00:00: [place] [facility] traMADOL 50 Yes TK 1 T PO U nivers mg tablet 8-18 TID PRN ity of 00:00: [place] [facility] traMADOL 50 Yes TK 1 T PO U nivers mg tablet 8-18 TID PRN ity of 00:00: [place] [facility] traMADOL 50 Yes TK 1 T PO U nivers mg tablet 8-18 TID PRN ity of 00:00: [place] [facility] traMADOL 50 Yes TK 1 T PO U nivers mg tablet 8-18 TID PRN ity of 00:00: [place] [facility] traMADOL 50 Yes TK 1 T PO U nivers mg tablet 8-18 TID PRN ity of 00:00: [place] [facility] traMADOL 50 Yes TK 1 T PO U nivers mg tablet 8-18 TID PRN ity of 00:00: [place] [facility] traMADOL 50 Yes TK 1 T PO U nivers mg tablet 8-18 TID PRN ity of 00:00: [place] [facility] traMADOL 50 Yes TK 1 T PO U nivers mg tablet 8-18 TID PRN ity of 00:00: [place] [facility] traMADOL 50 Yes TK 1 T PO U nivers mg tablet 8-18 TID PRN ity of 00:00: [place] [facility] metoprolol Yes TK 1 T PO Un osvaldo succinate 8-09 QD ity of XL 25 mg 24 00:00: [place] hr tablet [facility] torsemide Yes 10mg Take 10 mg Un osvaldo 10 mg 8-09 by mouth ity of tablet 00:00: daily. [place] [facility] atorvastati Yes TK 1 T PO U nivers n 40 mg 8-09 QD ity of tablet 00:00: [place] [facility] metoprolol Yes TK 1 T PO Un osvaldo succinate 8-09 QD ity of XL 25 mg 24 00:00: [place] hr tablet [facility] torsemide Yes 10mg Take 10 mg Un osvaldo 10 mg 8-09 by mouth ity of tablet 00:00: daily. [place] [facility] atorvastati Yes TK 1 T PO U nivers n 40 mg 8-09 QD ity of tablet 00:00: [place] [facility] metoprolol Yes TK 1 T PO Un osvaldo succinate 8-09 QD ity of XL 25 mg 24 00:00: [place] hr tablet [facility] torsemide Yes 10mg Take 10 mg Un osvaldo 10 mg 8-09 by mouth ity of tablet 00:00: daily. [facility] atorvastati Yes TK 1 T PO U nivers n 40 mg 8-09 QD ity of tablet 00:00: [facility] metoprolol 2017 Yes TK 1 T PO Un osvaldo succinate 8-09 QD ity of XL 25 mg 24 00:00: [place] hr tablet [facility] torsemide Yes 10mg Take 10 mg Un osvaldo 10 mg 8-09 by mouth ity of tablet 00:00: daily. [facility] atorvastati Yes TK 1 T PO U nivers n 40 mg 8-09 QD ity of tablet 00:00: [facility] metoprolol Yes TK 1 T PO Un osvaldo succinate 8-09 QD ity of XL 25 mg 24 00:00: [place] hr tablet [facility] torsemide Yes 10mg Take 10 mg Un osvaldo 10 mg 8-09 by mouth ity of tablet 00:00: daily. [facility] atorvastati Yes TK 1 T PO U nivers n 40 mg 8-09 QD ity of tablet 00:00: [facility] metoprolol Yes TK 1 T PO Un osvaldo succinate 8-09 QD ity of XL 25 mg 24 00:00: [place] hr tablet [facility] torsemide Yes 10mg Take 10 mg Un osvaldo 10 mg 8-09 by mouth ity of tablet 00:00: daily. [facility] atorvastati Yes TK 1 T PO U nivers n 40 mg 8-09 QD ity of tablet 00:00: [facility] metoprolol Yes TK 1 T PO Un osvaldo succinate 8-09 QD ity of XL 25 mg 24 00:00: [place] hr tablet [facility] torsemide Yes 10mg Take 10 mg Un osvaldo 10 mg 8-09 by mouth ity of tablet 00:00: daily. [facility] atorvastati Yes TK 1 T PO U nivers n 40 mg 8-09 QD ity of tablet 00:00: [facility] atorvastati Yes TK 1 T PO U nivers n 40 mg 8-09 QD ity of tablet 00:00: [place] [facility] metoprolol 2017 Yes TK 1 T PO Un osvaldo succinate 8-09 QD ity of XL 25 mg 24 00:00: [place] hr tablet [facility] torsemide Yes 10mg Take 10 mg Un osvaldo 10 mg 8-09 by mouth ity of tablet 00:00: daily. [facility] atorvastati Yes TK 1 T PO U nivers n 40 mg 8-09 QD ity of tablet 00:00: [place] [facility] metoprolol Yes TK 1 T PO Un osvaldo succinate 8-09 QD ity of XL 25 mg 24 00:00: [place] hr tablet [facility] torsemide Yes 10mg Take 10 mg Un osvaldo 10 mg 8-09 by mouth ity of tablet 00:00: daily. [facility] metoprolol Yes TK 1 T PO Un osvaldo succinate 8-09 QD ity of XL 25 mg 24 00:00: [place] hr tablet [facility] atorvastati Yes TK 1 T PO U nivers n 40 mg 8-09 QD ity of tablet 00:00: [place] [facility] metoprolol Yes TK 1 T PO Un osvaldo succinate 8-09 QD ity of XL 25 mg 24 00:00: [place] hr tablet [facility] torsemide Yes 10mg Take 10 mg Un osvaldo 10 mg 8-09 by mouth ity of tablet 00:00: daily. [facility] torsemide Yes 10mg Take 10 mg Un osvaldo 10 mg 8-09 by mouth ity of tablet 00:00: daily. [facility] atorvastati Yes TK 1 T PO U nivers n 40 mg 8-09 QD ity of tablet 00:00: [place] [facility] metoprolol Yes TK 1 T PO Un osvaldo succinate 8-09 QD ity of XL 25 mg 24 00:00: [place] hr tablet [facility] torsemide Yes 10mg Take 10 mg Un osvaldo 10 mg 8-09 by mouth ity of tablet 00:00: daily. [facility] atorvastati Yes TK 1 T PO U nivers n 40 mg 8-09 QD ity of tablet 00:00: [place] [id number] [facility] metoprolol 2017 Yes TK 1 T PO Un osvaldo succinate 8-09 QD ity of XL 25 mg 24 00:00: [place] hr tablet [facility] torsemide [id number] Yes 10mg Take 10 mg Un osvaldo 10 mg 8-09 by mouth ity of tablet 00:00: daily. [facility] atorvastati Yes TK 1 T PO U nivers n 40 mg 8-09 QD ity of tablet 00:00: [place] [facility] metoprolol 2017 Yes TK 1 T PO Un osvaldo succinate 8-09 QD ity of XL 25 mg 24 00:00: [place] hr tablet [facility] torsemide 2017 Yes 10mg Take 10 mg Un osvaldo 10 mg 8-09 by mouth ity of tablet 00:00: daily. [facility] atorvastati Yes TK 1 T PO U nivers n 40 mg 8-09 QD ity of tablet 00:00: [place] [facility] metoprolol 2017 Yes TK 1 T PO Un osvaldo succinate 8-09 QD ity of XL 25 mg 24 00:00: [place] hr tablet [facility] torsemide Yes 10mg Take 10 mg Un osvaldo 10 mg 8-09 by mouth ity of tablet 00:00: daily. [facility] atorvastati Yes TK 1 T PO U nivers n 40 mg 8-09 QD ity of tablet 00:00: [place] [facility] metoprolol Yes TK 1 T PO Un osvaldo succinate 8-09 QD ity of XL 25 mg 24 00:00: [place] hr tablet [facility] torsemide 0 Yes 10mg Take 10 mg Un osvaldo 10 mg 8-09 by mouth ity of tablet 00:00: daily. [place] [facility] atorvastati Yes TK 1 T PO U nivers n 40 mg 8-09 QD ity of tablet 00:00: [place] [facility] levothyroxi Yes TK 1 T PO U nivers ne 25 mcg 8-08 QD ity of tablet 00:00: [place] [facility] levothyroxi Yes TK 1 T PO U nivers ne 25 mcg 8-08 QD ity of tablet 00:00: [place] [facility] levothyroxi 2017 Yes TK 1 T PO U nivers ne 25 mcg 8-08 QD ity of tablet 00:00: [place] [facility] levothyroxi 2017 Yes TK 1 T PO U nivers ne 25 mcg 8-08 QD ity of tablet 00:00: [place] [facility] levothyroxi Yes TK 1 T PO U nivers ne 25 mcg 8-08 QD ity of tablet 00:00: [place] [facility] levothyroxi Yes TK 1 T PO U nivers ne 25 mcg 8-08 QD ity of tablet 00:00: [place] [facility] levothyroxi Yes TK 1 T PO U nivers ne 25 mcg 8-08 QD ity of tablet 00:00: [place] [facility] levothyroxi Yes TK 1 T PO U nivers ne 25 mcg 8-08 QD ity of tablet 00:00: [place] [facility] levothyroxi Yes TK 1 T PO U nivers ne 25 mcg 8-08 QD ity of tablet 00:00: [place] [facility] levothyroxi Yes TK 1 T PO U nivers ne 25 mcg 8-08 QD ity of tablet 00:00: [place] [facility] levothyroxi Yes TK 1 T PO U nivers ne 25 mcg 8-08 QD ity of tablet 00:00: [place] [facility] levothyroxi Yes TK 1 T PO U nivers ne 25 mcg 8-08 QD ity of tablet 00:00: [place] [facility] levothyroxi Yes TK 1 T PO U nivers ne 25 mcg 8-08 QD ity of tablet 00:00: [place] [facility] levothyroxi Yes TK 1 T PO U nivers ne 25 mcg 8-08 QD ity of tablet 00:00: [place] [facility] levothyroxi Yes TK 1 T PO U nivers ne 25 mcg 8-08 QD ity of tablet 00:00: [place] [facility] levothyroxi Yes TK 1 T PO U nivers ne 25 mcg 8-08 QD ity of tablet 00:00: [place] [facility] lisinopril Yes 2.5 mg = 1 M emoria 2.5 mg oral 4-06 tab, PO, l tablet 13:46: Daily, # [place] 00 30 tab, 0 Refill(s) AMIODarone Yes [...] [Tylenol Refill(s) with Codeine #3] 200 ACTUAT 2017 Yes 2 puff, Danilo jerry Albuterol 4-06 INHALATION l 0.09 13:46: , QID, PRN [place] MG/ACTUAT 00 for Metered wheezing, Dose # 25 gm, 0 Inhaler Refill(s) [Proventil] Advair Yes 1 puff, [facility] Diskus 250 4-06 INHALATION l mcg-50 mcg 13:46: , BID, # Her cazares inhalation 00 60 puff, 0 powder Refill(s) torsemide Yes 10 mg = 1 Mem oria 10 mg oral 4-06 tab, PO, l tablet 13:46: Daily, # [place] 00 30 tab, 0 Refill(s) metoprolol Yes 25 mg = 1 Me moria 25 mg oral 4-06 tab, PO, l tablet, 13:46: Daily, # Rafat n extended 00 30 tab, 0 release Refill(s) clopidogrel 2017 Yes 75 mg = 1 M emoria 75 mg oral 4-06 tab, PO, l tablet 13:46: Daily, # [place] 00 30 tab, 0 Refill(s) atorvastati Yes 40 mg = 1 M emoria n 40 mg 4-06 tab, PO, l oral tablet 13:46: Bedtime, # [place] 00 30 tab, 0 Refill(s) aspirin 81 2017 Yes 81 mg = 1 Me moria mg tablet, 4-06 tab, PO, l enteric 13:46: Daily, # Rafat n coated 00 100 tab, 0 Refill(s) 12 HR 2017 Yes 600 mg = 1 Memori a Guaifenesin -06 tab, PO, l 600 MG 13:46: Q12H, PRN Rafat n Extended 00 Congestion Release , X 7 day, Tablet # 14 tab, [Mucinex] 0 Refill(s) Amiodarone No Notes: Memor ia 06 (Same as: l 12:15: Cordarone) torsemide No Notes: Memori a 06-29 (Same As: l 14:00: Demadex) Amiodarone No Notes: Memor ia 06-28 (Same as: l 14:06: Cordarone) metoprolol No Notes: Memor ia extended 06-28 (Same as: l release 14:00: Toprol XL) Do Not Crush atorvastati No Notes: Dan[place] jerry n 06-28 (Same as: l 02:00: Lipitor) chlorhexidi No Notes: Danilo jerry ne 03 (Same As: l gluconate 14:00: Hibiclens) He [...] Memoria 06-26 (Same as: l 12:30: Lasix) albumin No Notes: Memoria human 5% 06-26 LOT#: l intravenous 12:30: [place] solution 00 ___ Mfg: WASTE: F/P - Red; E -Red (Same as: Albuminar) "blood product derivative " glucagon No 1 mg, Memoria 06-26 Route: l 03:17: INJ, Drug [place] 00 form: PDR/INJ, PRN, PRN Blood Glucose [...] 06-26 Roll in l 03:17: palms of [place] 00 hands gently; Do not shake vigorously . (Same as: NovoLOG) "single patient use only" WASTE: F/P - Black; E - Municipal Trash Bin Stable for 28 days at room temperatur e. Expires in days from ____Date atorvastati No Notes: [place] jerry n 06-26 (Same As: l 02:00: Lipitor) Lovenox No Notes: Memoria 06-26 (Same as: l 01:00: Lovenox) Dilaudid No 0.5 mg, Memori a 06-25 0.5 mL, l 23:54: Route: [place] 00 IVP, Drug form: INJ, ONCE, Dosing Weight 103.653, kg, Priority: STAT, Start date: 06/25/16 18:54:00 CDT, Stop date: 06/25/16 18:54:00 CDT pantoprazol No Notes: [place] jerry e 4-01 Tablet l 14:00: should not [place] 00 be chewed or crushed. (Same as: Protonix) Mupirocin 2017 No 1 appl, Memor ia 0.02 MG/MG [...] 07/24/16 9:00:00 CDT heparin No Notes: Memoria -01 porcine l 13:00: heparin [place] 00 vancomycin No 2000 mg: Me moria 4-01 infuse l 06:30: over 2.5 [place] 00 hours cefuroxime No Notes: Memor ia + sodium 06-25 (Same As: l chloride 06:00: Kefurox, Soumya nn 0.9% INJ 00 Zinacef) 100 mL MEDICATION WASTE Product Size: 1500 mg Product Wasted: ___ mg Vancomycin 2017- No 1,554.795 Me moria 4-01 mg, Route: l 02:00: IVPB, Drug [place] 00 form: INJ, Q12H, Dosing Weight 103.653, kg, Time Critical Medication , Start date: 06/24/16 21:00:00 CDT, Duration: 2 doses or times, Stop date: 06/25/16 9:00:00 CDT chlorhexidi No Notes: Danilo jerry ne - (Same As: l gluconate 02:00: Peridex) Herm jigna 1.2 MG/ML 00 Mouthwash Aspirin 325 No Notes: Danilo jerry MG Oral 06-25 Take with l Tablet 02:00: food. Ty 00 EPINEPHrine No Notes: Danilo jerry 4 mg + 06-24 (Same as: l sodium 23:38: Adrenalin) Soumya nn chloride 00 Suremed - 0.9% INJ Injectable 246 mL drug used as inhalation treatment. MEDICATION WASTE Product Size: 1 mg Product Wasted: ___ mg insulin No Notes: [facility]oria aspart 3- Roll in l 23:37: palms of [place] 00 hands gently; Do not shake vigorously . (Same as: NovoLOG) "single patient use only" WASTE: F/P - Black; E - Municipal Trash Bin Stable for 28 days at room temperatur e. Expires in days from ____Date insulin No Notes: [facility] aspart - Roll in l 23:36: palms of [place] 00 hands gently; Do not shake vigorously [...] Me moria 06-24 RT l 23:16: DOCUMENTAT [place] 00 ION (Same as: Proventil) Fentanyl No Notes: Memoria 3-31 Concentrat l 23:00: ion is 20 [place] 00 micrograms /ml metoprolol No Notes: Memor ia tartrate - (Same as: l 23:00: Lopressor) [place] 00 Cefuroxime No Notes: Memor ia 3-31 (Same As: l 23:00: Kefurox, Ty Zinacef) MEDICATION WASTE Product Size: 1500 mg Product Wasted: ___ mg PHOS-NaK No Notes: Memoria 3-31 (Same as: l 22:44: Phos-NaK) Ty 00 [...] WASTE: F/P l 22:44: - Sink; E [place] - Municipal Trash Bin Magnesium No Notes: Memori a Oxide 06-24 (Same as: l 22:44: Mag-Ox [place] 400) Magnesium oxide [id number] g elemental magnesium Dose=____m g magnesium oxide (___mg elemental magnesium) Magnesium No Notes: Memori a Sulfate 06-24 WASTE: F/P l 22:44: - Sink; E [place] - Municipal Trash Bin potassium No Notes: Memori a chloride - (Same as: l 22:44: Potassium Ty Chloride) Calcium No Notes: [facility] Carbonate - (Same As: l 500 MG 22:44: Tums) Ty Chewable 00 Calcium Tablet Carbonate 500 mg = 200 mg elemental calcium Dose = mg calcium carbonate ( mg elemental calcium) Insulin, No Notes: [facility] Aspart, 3- Roll in l Human 22:44: palms of [place] hands gently; Do not shake vigorously . (Same as: NovoLOG) "single patient use only" WASTE: F/P - Black; E - Municipal Trash Bin Stable for 28 days at room temperatur e. Expires in days from ____Date sodium No 45 mmol, Memoria phosphate + 3-31 15 mL, l sodium 22:44: Route: [place] chloride 00 IVPB, PRN, 0.9% INJ Dosing 250 mL Weight 103.653, kg, PRN Abnormal Lab Result, Start date: 06/24/16 17:44:00 CDT, Duration: 30 day, Stop date: 07/24/16 17:43:00 CDT, FOR ICU USE ONLY potassium No Notes: Memori a phosphate 3-31 (Same as: l 22:44: K [place] Phosphate) sodium No 15 mmol, Memoria phosphate 3-31 250 mL, l 22:44: Route: [place] 00 IVPB, Drug form: INJ, PRN, Dosing Weight 103.653, kg, PRN Abnormal Lab Result, Start date: 06/24/16 17:44:00 CDT, Duration: 30 day, Stop date: 07/24/16 17:43:00 CDT, FOR ICU USE ONLY Naloxone No Notes: [facility] 3-31 Same as l 22:44: Narcan [place] Saline No Notes: [facility] Flush 0.9% 3-31 (Same as: l 22:44: BD [place] Posiflush) Dulcolax No Notes: [facility]oria Laxative 3-31 (Same As: l 22:44: Dulcolax, Ty Bisco-Lax) Lactulose No Notes: Memori a 667 MG/ML 3-31 (Same l Oral 22:44: as:Chronul [place] Solution 00 ac) albumin No Notes: Mem[facility] human 5% 3-31 LOT#: l intravenous 22:44: [place] solution 00 ___ Mfg: WASTE: F/P - Red; E -Red (Same as: Albuminar) "blood product derivative " Acetaminoph No Notes: Do M emoria en 300 MG / 3-31 not exceed l Codeine 22:44: 4gm/day of Herm jigna Phosphate acetaminop 30 MG Oral hen. Tablet (Same as: [Tylenol Tylenol with with Codeine #3] Codeine # 3) Zofran No Notes: Memoria 06-24 (Same as: l 22:44: Zofran) Ty MEDICATION WASTE Product Size: 4 mg Product Wasted: ___ mg Xopenex No 1.25 mg, Memori a 06-24 Route: l 22:44: NEB, PRN, [place] Dosing Weight 102.926, kg, PRN Respirator y Protocol, Start date: 06/24/16 17:44:00 CDT, Duration: 30 day, Stop date: 07/24/16 17:43:00 CDT Morphine No Notes: Mem[facility] 06-24 (Same l 22:44: as:MORPhin e Sulfate) Albuterol No Notes: Memori a 0.833 MG/ML 06-24 (Same as: l / 22:44: Duoneb) Ipratropium 00 [place] 0.167 MG/ML Inhalant Solution Glucagon No 1 mg, Memoria 06-24 Route: IM, l 22:44: Drug form: Ty PDR/INJ, PRN, Dosing Weight 103.653, kg, PRN Blood Glucose Results, Start date: 06/24/16 17:44:00 CDT, Duration: 30 day, Stop date: 07/24/16 17:43:00 CDT Nitroglycer No Notes: Danilo jerry in 06-24 (Same l 22:44: as:Nitroqu [place] 00 ick, Nitrostat) "Do Not Crush" Sublingual tablet Docusate No Notes: Memoria 06-24 (Same as: l 22:44: Colace) Ty (Do Not Crush) Ondansetron No Notes: Danilo jerry 06-24 (Same as: l 22:44: Zofran) [place] MEDICATION WASTE Product Size: 4 mg Product [...] 06-24 not exceed l 22:44: 4 gm/day. [place] (Same as: Tylenol) vasopressin No Route: IV, [...] 06-24 Drug form: l 20:07: INJ, ONCE, [place] 00 Stop date: 06/24/16 15:07:00 CDT fentaNYL No Route: IV, Mem oria (ANES) 06-24 Drug form: l 19:31: INJ, ONCE, Stop date: 06/24/16 14:31:00 CDT ePHEDrine No Route: IV, Me moria (ANES) 06-24 Drug form: l 19:11: INJ, ONCE, Ty 00 Stop date: 06/24/16 14:11:00 CDT cefuroxime No Route: IV, M emoria (ANES) 06-24 Drug form: l 19:11: INJ, ONCE, Ty 00 Stop date: 06/24/16 14:11:00 CDT rocuronium No Route: IV, M emoria (ANES) 06-24 Drug form: l 19:06: INJ, ONCE, Ty 00 Stop date: 06/24/16 14:06:00 CDT propofol No Route: IV, Mem oria (ANES) 06-24 Drug form: l 19:06: INJ, ONCE, Ty 00 Stop date: 06/24/16 14:06:00 CDT Amicar No [...] (ANES) 06-24 Drug form: l 18:11: SOLN, ONCE, Stop date: 06/24/16 13:11:00 CDT morphine No Route: IV, Mem oria Sulfate 06-24 Drug form: l (ANES) 18:11: INJ, ONCE, Soumya nn Stop date: 06/24/16 13:11:00 CDT Isolyte S No Route: IV, Me moria (PH 7.4) 06-24 Total l 1000 mL 17:39: Volume: Ty (ANES) 00 1,000, Start date: 06/24/16 12:39:00 CDT, Stop date: 06/24/16 13:39:00 CDT sodium No 1,000 mL, Memori a chloride 3-29 Rate: 125 l 0.9% 1000 12:35: ml/hr, Rafat n ml INJ 00 Infuse 1,000 mL over: 8 hr, Route: IV, Dosing Weight 99.563 kg, Total Volume: 1,000, Start date: 06/22/16 7:35:00 CDT, Duration: 30 day, Stop date: 07/22/16 7:34:00 CDT Sodium No 250 mL, Memoria Chloride 3-29 250 ml/hr, l 0.154 12:34: Infuse [place] MEQ/ML 00 Over: 1 Injectable hr, Route: Solution IV, 250, Drug form: INJ, ONCE, Priority: STAT, Dosing Weight 99.563 kg, Start date: 06/22/16 7:34:00 CDT, Duration: 1 doses or times, Stop date: 06/22/16 7:34:00 CDT sodium No 1,000 mL, Memori a chloride - Rate: 125 l 0.9% 1000 12:19: ml/hr, Rafat n ml INJ 00 Infuse 1,000 mL over: 8 hr, Route: IV, Dosing Weight 99.563 kg, Total Volume: 1,000, Start date: 06/22/16 7:19:00 CDT, Duration: 30 day, Stop date: 07/22/16 7:18:00 CDT Lopressor No Notes: Memori a 3-26 (Same as: l 23:00: Lopressor) [place] 00 Lopressor No Notes: Memori a 3-26 (Same as: l 22:00: Lopressor) Ty Levemir No Notes: Memoria 3-25 Same as l 02:00: Le[place]mir Do not hold insulin without contacting prescriber WASTE: F/P - Black; E - Municipal Trash Bin "single patient use only" Saline No Notes: [facility] Flush 0.9% 3-25 (Same as: l 02:00: BD [place] 00 Posiflush) chlorhexidi No Notes: Danilo jerry ne 3-25 (Same As: l gluconate 01:00: Peridex) Herm jigna 1.2 MG/ML 00 Mouthwash Cefazolin No Notes: Memori a 3-25 Same as: l 00:00: Ancef Mupirocin No 1 appl, Memor ia 0.02 MG/MG 06-18 Route: l Topical 00:00: NASAL, [place] Ointment 00 ONCALL, Drug form: OINT, Start date: 06/17/16 19:00:00 CDT, Duration: 30 day, Stop date: 07/17/16 18:59:00 CDT sodium No 250 mL, Memoria chloride 24 Rate: On l 0.9% INJ 23:54: call for Soumya nn 250 mL 00 use with blood product administra tion, Dosing Weight 102.926, kg, Route: IV, Total Volume: 250, Start Date: 06/17/16 18:54:00 CDT, Duration: 30 day, Stop date: 07/17/16 18:53:00 CDT, Replace Every: 24 hr Saline No Notes: [facility]oria Flush 0.9% -24 (Same as: l 23:54: BD Posiflush) metoprolol No 12.5 mg, Mem oria tartrate 24 Route: PO, l 23:54: Drug form: [place] 00 TAB, Q12H, Dosing Weight 102.926, kg, [...] ia 3-24 Nurse to l 14:00: ensure documentat ion of patient education per anticoagul ation policy. (Same as: Lovenox) Albuterol No Notes: Memori a 0.833 MG/ML -24 (Same as: l / 01:00: Duoneb) Ipratropium 00 Piffard 0.167 MG/ML Inhalant Solution [DuoNeb] Budesonide No Notes: Memor ia 0.25 MG/ML 06-16 (Same As: l Inhalant 23:32: Pulmicort) Her cazares Solution 00 [Pulmicort] Solu-Medrol No Notes: Danilo jerry 06-16 (Same l 23:12: as:Solu-ME [place] 00 DROL, A-Methapre d) Lovenox No Notes: Memoria 06-16 Nurse to l 23:00: ensure [place] documentat ion of patient education per [facility] ation policy. (Same as: Lovenox) Sodium No 250 mL, Memoria Chloride 323 250 ml/hr, l 0.154 22:00: Infuse [place] MEQ/ML 00 Over: 1 Injectable hr, Route: Solution IV, 250, Drug form: INJ, ONCALL, Priority: Routine, Dosing Weight 102.926 kg, Start date: 06/16/16 17:00:00 CDT, Duration: 1 doses or times Sodium No 750 mL, Memoria Chloride 06-16 Rate: 75 l 0.154 21:15: ml/hr, [place] MEQ/ML 00 Infuse Injectable over: 10 Solution hr, Route: IV, Dosing Weight 102.926 kg, Total Volume: 750, Start date: 06/16/16 16:15:00 CDT, Stop date: 06/17/16 16:14:00 CDT acetaminoph No Notes: Do M emoria en-codeine -23 not exceed l #3 21:11: 4gm/day of acetaminop hen. (Same as: Tylenol with Codeine # 3) Acetaminoph No Notes: Do M emoria en 3-23 not exceed l 21:11: 4 gm/day. [place] 00 (Same as: Tylenol) Sodium No 500 mL, Memoria Chloride 3-23 Rate: 150 l 0.154 21:11: ml/hr, [place] MEQ/ML 00 Infuse Injectable over: 3.3 Solution hr, Route: IV, Dosing Weight 102.926 kg, Total Volume: 500, Start date: 06/16/16 16:11:00 CDT, Stop date: 06/16/16 20:10:00 CDT Sodium 2016- No 250 mL, Memoria Chloride 06-16 Route: l 0.9% IV 20:49: IVPB, Ty 00 Start date: 06/16/16 15:49:00 CDT, Duration: 30 day, Stop date: 07/16/16 15:48:00 CDT, PRN Line Flush Dextrose No 25 gm, 50 Danilo jerry 50% Syringe 3-23 mL, Route: l 20:45: IVP, Drug Ty 00 Form: INJ, Dosing Weight 102.926, kg, PRN, PRN Blood Glucose Results, Start date: 06/16/16 15:45:00 CDT, Duration: 30 day, Stop date: 07/16/16 15:44:00 CDT Insulin, No Notes: Memoria Aspart, - Roll in l Human 20:45: palms of Ty 00 hands gently; Do not shake vigorously . (Same as: NovoLOG) "single patient use only" WASTE: F/P - Black; E - sharing.it Trash Bin Stable for 28 days at room temperatur e. Expires in days from ____Date Glucagon No 1 mg, Memoria - Route: IM, l 20:45: Drug form: Ty 00 PDR/INJ, PRN, Dosing Weight 102.926, kg, PRN Blood Glucose Results, Start date: 06/16/16 15:45:00 CDT, Duration: 30 day, Stop date: 07/16/16 15:44:00 CDT Sodium 2016- No 1,000 mL, Memori a Chloride 06-16 Rate: 100 l 0.154 14:19: ml/hr, [place] MEQ/ML 00 Infuse Injectable over: 10 Solution hr, Route: IV, Dosing Weight 102.926 kg, Total Volume: 1,000, Start date: 06/16/16 9:19:00 CDT, Duration: 30 day, Stop date: 07/16/16 9:18:00 CDT aspirin 81 No Notes: Do Me moria mg tablet, 06-16 not crush l enteric 14:00: or chew. Rafat n coated 00 (Same As: Ecotrin) Nitroglycer No Notes: 1 Me moria in 0.02 3-23 gram is l MG/MG 11:00: approximat Rafat n Topical 00 zara 1 inch Ointment of nitroglyce rin ointment (20 mg NTG per gram) (Same as:Nitro-B id) metoprolol No Notes: Memor ia tartrate 3-23 (Same as: l 05:00: Lopressor) Sodium No 250 mL, Memoria Chloride 3-23 [...] Posiflush) atorvastati No Notes: Danilo jerry n 3-23 (Same as: l 02:00: Lipitor) metoprolol No 25 mg, Memor ia tartrate 3-23 Route: PO, l 02:00: Drug form: TAB, Q12H, Dosing Weight 102.926, kg, Start date: 06/15/16 21:00:00 CDT, Duration: 30 day, Stop date: 07/15/16 9:00:00 CDT Enoxaparin No Notes: Memor ia 3-23 Nurse to l 00:00: ensure documentat ion of patient education per anticoagul ation policy. (Same as: Lovenox) Albuterol No Notes: Memori a 0.833 MG/ML - (Same as: l / 18:56: Duoneb) Ty Ipratropium 00 Piffard 0.167 MG/ML Inhalant Solution [DuoNeb] Saline No Notes: Memoria Flush 0.9% 06-15 (Same as: l 18:52: BD [place] 00 Posiflush) Labetalol No Notes: Memori a - (Same as: l 18:52: Normodyne, Ty Trandate) Push over 2 minutes Give bolus over 2-3 minutes. Trazodone No Notes: Memori a Hydrochlori - (Same As: l de 50 MG 18:52: Desyrel) Soumya nn Oral Tablet 00 Miralax No Notes: Memoria -22 Dissolve l 18:52: in 8 oz of Ty 00 water or juice. (Same as: Miralax) Nitroglycer No Notes: Danilo jerry in 06-15 (Same l 18:52: as:Nitroqu ick, Nitrostat) "Do Not Crush" Sublingual tablet Morphine No Notes: Memoria - (Same l 18:52: as:MORPhin Ty 00 e Sulfate) Ondansetron No Notes: Danilo jerry - (Same as: l 18:52: Zofran) Immunizations Ordered Filled Immunization Date Status Comments Sour e Immunization Name Name Influenza High Dose 2018-11-25 Completed Unive rsity of 00:00:00 [facility] Influenza High Dose 2018-11-25 Completed Unive rsity of 00:00:00 [facility] Influenza High Dose 2018-11-25 Completed Unive rsity of 00:00:00 [facility] Influenza High Dose 2018-11-25 Completed Unive rsity of 00:00:00 [facility] Influenza High Dose 2018-11-25 Completed Unive rsity of 00:00:00 [facility] Influenza High Dose 2018-11-25 Completed Unive rsity of 00:00:00 [facility] Influenza High Dose 2018-11-25 Completed Unive rsity of 00:00:00 [facility] Influenza High Dose 2018-11-25 Completed Unive rsity of 00:00:00 [facility] Influenza High Dose 2018-11-25 Completed Unive rsity of 00:00:00 [facility] Influenza High Dose 2018-11-25 Completed Unive rsity of 00:00:00 [facility] Influenza High Dose 2018-11-25 Completed Unive rsity of 00:00:00 [facility] pneumococcal 2016-06-30 Completed [facility] 13-valent vaccine 17:42:00 Vital Signs Vital Name Observation Time Observation Value Comments Source HEIGHT 2020-09-11 09:44:00 177.8 cm WEIGHT 2020-09-11 09:44:00 95.255 kg HEIGHT 2020-09-11 09:44:00 177.8 cm WEIGHT 2020-09-11 09:44:00 95.255 kg HEIGHT 2020-09-07 14:08:00 177.8 cm WEIGHT 2020-09-07 14:08:00 80.74 kg HEIGHT 2020-09-07 14:08:00 177.8 cm WEIGHT 2020-09-07 14:08:00 80.74 kg Systolic blood 2019-04-25 17:33:00 106 mm[Hg] Univer sity of pressure [facility] Diastolic blood 2019-04-25 17:33:00 76 mm[Hg] Unive rsity of [facility] Heart rate 2019-04-25 17:33:00 77 /min [facility]i ty [facility] Respiratory rate 2019-04-25 17:33:00 19 /min [facility] height 2019-04-25 17:33:00 167.6 cm Universi ty [facility] Body weight 2019-04-25 17:33:00 95.709 kg Universi ty [facility] BMI 2019-04-25 17:33:00 [facility] Oxygen saturation in 2019-04-25 17:33:00 99 /min [facility] Arterial blood by [facility] Pulse oximetry Branch Systolic blood 2018-12-06 14:38:00 134 mm[Hg] Univer sity of pressure [facility] Diastolic blood 2018-12-06 14:38:00 74 mm[Hg] Unive rsity of pressure [facility] Heart rate 2018-12-06 14:38:00 75 /min [facility] acute hospital Respiratory rate 2018-12-06 14:38:00 19 /min [facility] height 2018-12-06 14:38:00 167.6 cm [facility] Body weight 2018-12-06 14:38:00 105.235 kg [facility] BMI 2018-12-06 14:38:00 37.45 kg/m2 [facility] hospital Oxygen saturation in 2018-12-06 14:38:00 97 /min [facility] of Arterial blood by [facility] Pulse oximetry Branch Heart rate 2020-11-14 18:27:00 65 /min MD Harden son Respiratory rate 2020-11-14 18:27:00 18 /min MD Chapo kauron Systolic blood 2020-11-14 17:17:17 118 mm[Hg] pressure Diastolic blood 2020-11-14 17:17:17 76 mm[Hg] MD Woodard derson pressure Body temperature 2020-11-14 17:17:17 36.61 Arlen MD Chapo fine Oxygen saturation in 2020-11-14 17:17:17 96 /min MD Barrientos Arterial blood by Pulse oximetry Body weight 2020-11-13 09:45:00 95.8 kg MD Harden son BMI 2020-11-13 09:45:00 33.15 kg/m2 MD Harden son Body height 2020-10-29 16:22:00 170 cm MD Harden son Respitory Rate 2016-06-30 20:27:00 Memori al Ty Systolic (mm Hg) 2016-06-30 20:27:00 Danilo rial Ty Diastolic (mm Hg) 2016-06-30 20:27:00 Mem orial Ty Heart Rate 2016-06-30 20:27:00 [facility] [place] Respitory Rate 2016-06-30 17:09:00 Memori al Ty Systolic (mm Hg) 2016-06-30 17:09:00 Danilo rial [place] Diastolic (mm Hg) 2016-06-30 17:09:00 Mem orial Ty Heart Rate 2016-06-30 17:09:00 [facility] [place] Systolic (mm Hg) 2016-06-30 13:00:00 Danilo rial [place] Diastolic (mm Hg) 2016-06-30 13:00:00 Mem orial Ty Heart Rate 2016-06-30 13:00:00 [facility] Ty Respitory Rate 2016-06-30 13:00:00 Memori al [place] Weight 2016-06-29 10:00:00 [facility] Ty Weight 2016-06-28 10:23:00 [facility] Ty Height 2016-06-25 05:04:00 177.8 cm [facility] Ty Height 2016-06-25 03:47:00 177.8 cm [facility] [place] Height 2016-06-24 22:55:00 177.8 cm [facility] [place] Temperature Oral (F) 2016-06-24 14:55:00 97.6 F [facility] Weight 2016-06-24 10:00:00 [facility] [place] Temperature Oral (F) 2016-06-20 13:00:00 97.9 F [facility] Ty BMI Calculated 2016-06-15 16:47:00 Memori al [place] Procedures Procedure Date / Time Performing Clinician Source Performed HEPATIC FUNCTION PANEL 2020-11-14 07:17:00 Yuriy Parker MD COMPREHENSIVE METABOLIC 2020-11-14 07:17:00 Yuriy Parker MD PANEL MAGNESIUM LEVEL 2020-11-14 07:17:00 Yuriy Parker MD Jay rson PHOSPHORUS LEVEL 2020-11-14 07:17:00 Yuriy Parker MD And erson LACTATE DEHYDROGENASE 2020-11-14 07:17:00 Yanet Gurrola MD COMPLETE BLOOD COUNT W/ 2020-11-14 07:17:00 Yanet Gurrola MD DIFFERENTIAL URIC ACID 2020-11-14 07:17:00 Mari Lovell MD n ALBUMIN LEVEL 2020-11-14 07:17:00 Yuriy Parker MD Jay rson ALKALINE PHOSPHATASE 2020-11-14 07:17:00 Yuriy Parker MD ALANINE AMINOTRANSFERASE 2020-11-14 07:17:00 Yuriy Parker MD ASPARTATE AMINOTRANSFERASE 2020-11-14 07:17:00 Carmencita Parker MD TOTAL PROTEIN 2020-11-14 07:17:00 Yuriy Parker MD Jay rson FRACTIONATED BILIRUBIN 2020-11-14 07:17:00 Yuriy Parker MD GLUCOSE LEVEL 2020-11-14 07:17:00 Yuriy Parker MD Jay rson BLOOD UREA NITROGEN 2020-11-14 07:17:00 Yuriy Parker MD ELECTROLYTE PANEL 2020-11-14 07:17:00 Yuriy Parker MD SERUM CREATININE 2020-11-14 07:17:00 Yuriy Parker MD And erson .GLOMERULAR FILTRATION 2020-11-14 07:17:00 Yuriy Parker MD RATE CALCIUM LEVEL TOTAL 2020-11-14 07:17:00 Yuriy Parker MD Results CBC 2020-11-14 07:17:00 Yanet Gurrola MD MANUAL DIFFERENTIAL 2020-11-14 07:17:00 Yanet Grurola MD Jay rson OSCILLATORY PEP 2020-11-13 19:00:28 Kristina Blake MD OSCILLATORY PEP 2020-11-13 13:00:08 Kristina Blake MD HEPATIC FUNCTION PANEL 2020-11-13 08:47:00 Yuriy Parker MD COMPREHENSIVE METABOLIC 2020-11-13 08:47:00 Yuriy Parker MD PANEL MAGNESIUM LEVEL 2020-11-13 08:47:00 Yuriy Parker MD Jay rson PHOSPHORUS LEVEL 2020-11-13 08:47:00 Yuriy Parker MD And erson LACTATE DEHYDROGENASE 2020-11-13 08:47:00 Yanet Gurrola MD COMPLETE BLOOD COUNT W/ 2020-11-13 08:47:00 Yanet Gurrola MD DIFFERENTIAL TYPE AND SCREEN 2020-11-13 08:47:00 Vania Pascual MD on APTT 2020-11-13 08:47:00 Mari Lovell MD URIC ACID 2020-11-13 08:47:00 Mari Lovell MD PROTHROMBIN TIME 2020-11-13 08:47:00 Mari Lovell MD on ABORH 2020-11-13 08:47:00 Randolph Payne MD ANTIBODY SCREEN 2020-11-13 08:47:00 Randolph Payne MD ALBUMIN LEVEL 2020-11-13 08:47:00 Yuriy Parker MD Jay rson ALKALINE PHOSPHATASE 2020-11-13 08:47:00 Yuriy Parker MD ALANINE AMINOTRANSFERASE 2020-11-13 08:47:00 Yuriy Parker MD ASPARTATE AMINOTRANSFERASE 2020-11-13 08:47:00 Carmencita Parker MD TOTAL PROTEIN 2020-11-13 08:47:00 Yuriy Parker MD Jay rson FRACTIONATED BILIRUBIN 2020-11-13 08:47:00 Yuriy Parker MD GLUCOSE LEVEL 2020-11-13 08:47:00 Yuriy Parker MD Jay rson BLOOD UREA NITROGEN 2020-11-13 08:47:00 Yuriy Parker MD ELECTROLYTE PANEL 2020-11-13 08:47:00 Yuriy Parker MD SERUM CREATININE 2020-11-13 08:47:00 Yuriy Parker MD And erson .GLOMERULAR FILTRATION 2020-11-13 08:47:00 Yuriy Parker MD RATE CALCIUM LEVEL TOTAL 2020-11-13 08:47:00 Yuriy Parker MD Results CBC 2020-11-13 08:47:00 Yanet Gurrola MD MANUAL DIFFERENTIAL 2020-11-13 08:47:00 Yanet Gurrola MD Jay rsaldo CLOT EXPIRATION DATE 2020-11-13 08:47:00 Randolph Payne MD rsaldo TMP INTERPRETATION 2020-11-13 08:47:00 Randolph Payne MD on ANTIBODY SCREEN NEGATIVE OSCILLATORY PEP 2020-11-13 07:00:14 Kristina Blake MD OSCILLATORY PEP 2020-11-13 01:00:09 Kristina Blake MD OSCILLATORY PEP 2020-11-12 19:00:07 Kristina Blake MD OSCILLATORY PEP 2020-11-12 13:00:08 Kristina Blake MD US RENAL 2020-11-12 12:36:12 MD Floyd Middleton Segun HEPATIC FUNCTION PANEL 2020-11-12 09:08:00 Yuriy Parker MD COMPREHENSIVE METABOLIC 2020-11-12 09:08:00 Yuriy Parker MD PANEL MAGNESIUM LEVEL 2020-11-12 09:08:00 Yuriy Parker MD Jay rson PHOSPHORUS LEVEL 2020-11-12 09:08:00 Yuriy Parker MD And erson LACTATE DEHYDROGENASE 2020-11-12 09:08:00 Yanet Gurrola MD COMPLETE BLOOD COUNT W/ 2020-11-12 09:08:00 Yanet Gurrola MD DIFFERENTIAL URIC ACID 2020-11-12 09:08:00 Mari Lovell MD n ALBUMIN LEVEL 2020-11-12 09:08:00 Yuriy Parker MD Jay rson ALKALINE PHOSPHATASE 2020-11-12 09:08:00 Yuriy Parker MD ALANINE AMINOTRANSFERASE 2020-11-12 09:08:00 Yuriy Parker MD ASPARTATE AMINOTRANSFERASE 2020-11-12 09:08:00 Carmencita Parker MD TOTAL PROTEIN 2020-11-12 09:08:00 Yuriy Parker MD Jay rson FRACTIONATED BILIRUBIN 2020-11-12 09:08:00 Yuriy Parker MD GLUCOSE LEVEL 2020-11-12 09:08:00 Yuriy Parker MD Jay rson BLOOD UREA NITROGEN 2020-11-12 09:08:00 Yuriy Parker MD ELECTROLYTE PANEL 2020-11-12 09:08:00 Yuriy Parker MD SERUM CREATININE 2020-11-12 09:08:00 Yuriy Parker MD And erson .GLOMERULAR FILTRATION 2020-11-12 09:08:00 Yuriy Parker MD RATE CALCIUM LEVEL TOTAL 2020-11-12 09:08:00 Yuriy Parker MD Results CBC 2020-11-12 09:08:00 Yanet Gurrola MD MANUAL DIFFERENTIAL 2020-11-12 09:08:00 Yanet Gurrola MD Jay rson OSCILLATORY PEP 2020-11-12 07:00:16 Kristina Blake MD OSCILLATORY PEP 2020-11-12 01:00:11 Kristina Blake MD URINALYSIS MICROSCOPIC 2020-11-11 22:06:00 MD Yamilet Middleton Segun SODIUM URINE 2020-11-11 22:06:00 MD Floyd Middleton Segun CREATININE URINE, RANDOM 2020-11-11 22:06:00 MD Floyd Middleton Segun UREA NITROGEN URINE 2020-11-11 22:06:00 MD Dereck Middleton Segun ALBUMIN LEVEL URINE 2020-11-11 22:06:00 MD Dereck Middleton Segun PROTEIN / CREATININE RATIO 2020-11-11 22:06:00 Aimee Middleton URINE Segun URINALYSIS WITH 2020-11-11 22:06:00 MD Camryn Dunn MICROSCOPIC IF INDICATED Anastacio TRANSFUSE RED BLOOD CELLS 2020-11-11 19:21:00 MD Floyd Dunn Anastacio OSCILLATORY PEP 2020-11-11 19:00:42 Kristina Blake MD OSCILLATORY PEP 2020-11-11 13:00:09 Kristina Blake MD PREPARE RBC 2020-11-11 12:00:00 MD Camryn Dunn Anastacio PRBC PRODUCT READY FOR 2020-11-11 12:00:00 MD Floyd Dunn MANAGER CORPORATE Anastacio HEPATIC FUNCTION PANEL 2020-11-11 09:16:00 Yuriy Parker MD COMPREHENSIVE METABOLIC 2020-11-11 09:16:00 Yuriy Parker MD PANEL MAGNESIUM LEVEL 2020-11-11 09:16:00 Yuriy Parker MD Jay rson PHOSPHORUS LEVEL 2020-11-11 09:16:00 Yuriy Parker MD And erson LACTATE DEHYDROGENASE 2020-11-11 09:16:00 Yanet Gurrola MD COMPLETE BLOOD COUNT W/ 2020-11-11 09:16:00 Yanet Gurrola MD DIFFERENTIAL URIC ACID 2020-11-11 09:16:00 Mari Lovell MD n ALBUMIN LEVEL 2020-11-11 09:16:00 Yuriy Parker MD Jay rson ALKALINE PHOSPHATASE 2020-11-11 09:16:00 Yuriy Parker MD ALANINE AMINOTRANSFERASE 2020-11-11 09:16:00 Yuriy Parker MD ASPARTATE AMINOTRANSFERASE 2020-11-11 09:16:00 Carmencita Parker MD TOTAL PROTEIN 2020-11-11 09:16:00 Yuriy Parker MD Jay rson FRACTIONATED BILIRUBIN 2020-11-11 09:16:00 Yuriy Parker MD GLUCOSE LEVEL 2020-11-11 09:16:00 Yuriy Parker MD Jay rson BLOOD UREA NITROGEN 2020-11-11 09:16:00 Yuriy Parker MD ELECTROLYTE PANEL 2020-11-11 09:16:00 Yuriy Parker MD SERUM CREATININE 2020-11-11 09:16:00 Yuriy Parker MD And erson .GLOMERULAR FILTRATION 2020-11-11 09:16:00 Yuriy Parker MD RATE CALCIUM LEVEL TOTAL 2020-11-11 09:16:00 Yuriy Parker MD Results CBC 2020-11-11 09:16:00 Yanet Gurrola MD MANUAL DIFFERENTIAL 2020-11-11 09:16:00 Yanet Gurrola MD Jay rson OSCILLATORY PEP 2020-11-11 07:00:18 Kristina Blake MD OSCILLATORY PEP 2020-11-11 01:00:08 Kristina Blake MD XR FOOT 3+ VW LEFT 2020-11-10 21:20:23 Yanet Gurrola MD Dereck son OSCILLATORY PEP 2020-11-10 19:00:41 Kristina Blake MD COVID-19 (SARS-COV-2) 2020-11-10 18:41:00 Kristina Blake MD And erson PCR-ASYMPTOMATIC MC OSCILLATORY PEP 2020-11-10 13:00:11 Kristina Blake MD HEPATIC FUNCTION PANEL 2020-11-10 12:55:00 Yuriy Parker MD COMPREHENSIVE METABOLIC 2020-11-10 12:55:00 Yuriy Parker MD PANEL MAGNESIUM LEVEL 2020-11-10 12:55:00 Yuriy Parker MD Jay rson PHOSPHORUS LEVEL 2020-11-10 12:55:00 Yuriy Parker MD And erson LACTATE DEHYDROGENASE 2020-11-10 12:55:00 Yanet Gurrola MD COMPLETE BLOOD COUNT W/ 2020-11-10 12:55:00 Yanet Gurrola MD DIFFERENTIAL TYPE AND SCREEN 2020-11-10 12:55:00 Vania Pascual MD on APTT 2020-11-10 12:55:00 Mari Lovell MD n URIC ACID 2020-11-10 12:55:00 Mari Lovell MD PROTHROMBIN TIME 2020-11-10 12:55:00 Mari Lovell MD on ABORH 2020-11-10 12:55:00 Randolph Payne MD ANTIBODY SCREEN 2020-11-10 12:55:00 Randolph Payne MD ALBUMIN LEVEL 2020-11-10 12:55:00 Yuriy Parker MD Jay rson ALKALINE PHOSPHATASE 2020-11-10 12:55:00 Yuriy Parker MD ALANINE AMINOTRANSFERASE 2020-11-10 12:55:00 Yuriy Parker MD ASPARTATE AMINOTRANSFERASE 2020-11-10 12:55:00 Carmencita Parker MD TOTAL PROTEIN 2020-11-10 12:55:00 Yuriy Parker MD Jay rson FRACTIONATED BILIRUBIN 2020-11-10 12:55:00 Yuriy Parker MD GLUCOSE LEVEL 2020-11-10 12:55:00 Yuriy Parker MD Jay rson BLOOD UREA NITROGEN 2020-11-10 12:55:00 Yuriy Parker MD ELECTROLYTE PANEL 2020-11-10 12:55:00 Yuriy Parker MD SERUM CREATININE 2020-11-10 12:55:00 Yuriy Parker MD And erson .GLOMERULAR FILTRATION 2020-11-10 12:55:00 Yuriy Parker MD RATE CALCIUM LEVEL TOTAL 2020-11-10 12:55:00 Yuriy Parker MD Results CBC 2020-11-10 12:55:00 Yanet Gurrola MD MANUAL DIFFERENTIAL 2020-11-10 12:55:00 Yanet Gurrola MD Jay rson TMP INTERPRETATION 2020-11-10 12:55:00 Randolph Payne MD on ANTIBODY SCREEN NEGATIVE CLOT EXPIRATION DATE 2020-11-10 12:55:00 Randolph Payne MD Jay rsaldo TMP CROSSMATCH 2020-11-10 12:55:00 Randolph Payne MD INTERPRETATION OSCILLATORY PEP 2020-11-10 07:00:06 Kristina Blake MD OSCILLATORY PEP 2020-11-10 01:00:11 Kristina Blake MD OSCILLATORY PEP 2020-11-09 19:00:05 Kristina Blake MD PERIPHERAL SMR FOR DOC 2020-11-09 16:10:00 Kristina Blake MD REVIEW BLOODCULTURE 2020-11-09 16:02:00 Kristina Blake MD OSCILLATORY PEP 2020-11-09 13:00:08 Kristina Blake MD HEPATIC FUNCTION PANEL 2020-11-09 07:45:00 Yuriy Parker MD COMPREHENSIVE METABOLIC 2020-11-09 07:45:00 Yuriy Parker MD PANEL MAGNESIUM LEVEL 2020-11-09 07:45:00 Yuriy Parker MD Jay rson PHOSPHORUS LEVEL 2020-11-09 07:45:00 Yuriy Parker MD And erson LACTATE DEHYDROGENASE 2020-11-09 07:45:00 Yanet Gurrola MD COMPLETE BLOOD COUNT W/ 2020-11-09 07:45:00 Yanet Gurrola MD DIFFERENTIAL URIC ACID 2020-11-09 07:45:00 Mari Lovell MD n ALBUMIN LEVEL 2020-11-09 07:45:00 Yuriy Parker MD Jay rson ALKALINE PHOSPHATASE 2020-11-09 07:45:00 Yuriy Parker MD ALANINE AMINOTRANSFERASE 2020-11-09 07:45:00 Yuriy Parker MD ASPARTATE AMINOTRANSFERASE 2020-11-09 07:45:00 Carmencita Parker MD TOTAL PROTEIN 2020-11-09 07:45:00 Yuriy Parker MD Jay rson FRACTIONATED BILIRUBIN 2020-11-09 07:45:00 Yuriy Parker MD GLUCOSE LEVEL 2020-11-09 07:45:00 Yuriy Parker MD Jay rson BLOOD UREA NITROGEN 2020-11-09 07:45:00 Yuriy Parker MD ELECTROLYTE PANEL 2020-11-09 07:45:00 Yuriy Parker MD SERUM CREATININE 2020-11-09 07:45:00 Yuriy Parker MD And erson .GLOMERULAR FILTRATION 2020-11-09 07:45:00 Yuriy Parker MD RATE CALCIUM LEVEL TOTAL 2020-11-09 07:45:00 Yuriy Parker MD Results CBC 2020-11-09 07:45:00 Yanet Gurrola MD MANUAL DIFFERENTIAL 2020-11-09 07:45:00 Yanet Gurrola MD Jay rson OSCILLATORY PEP 2020-11-09 07:00:10 Kristina Blake MD OSCILLATORY PEP 2020-11-09 01:00:10 Kristina Blake MD OSCILLATORY PEP 2020-11-08 19:00:45 Kristina Blake MD OSCILLATORY PEP 2020-11-08 13:00:07 Kristina Blake MD XR CHEST 2 VW 2020-11-08 12:42:57 Kristina Blake MD VRE CULTURE 2020-11-08 10:56:00 Yuriy Parker MD Jay rson HEPATIC FUNCTION PANEL 2020-11-08 08:58:00 Yuriy Parker MD COMPREHENSIVE METABOLIC 2020-11-08 08:58:00 Yuriy Parker MD PANEL MAGNESIUM LEVEL 2020-11-08 08:58:00 Yuriy Parker MD Jay rson PHOSPHORUS LEVEL 2020-11-08 08:58:00 Yuriy Parker MD And erson LACTATE DEHYDROGENASE 2020-11-08 08:58:00 Yanet Gurrola MD COMPLETE BLOOD COUNT W/ 2020-11-08 08:58:00 Yanet Gurrola MD DIFFERENTIAL URIC ACID 2020-11-08 08:58:00 Mari Lovell MD Andcharles n ALBUMIN LEVEL 2020-11-08 08:58:00 Yuriy Parker MD Jay rson ALKALINE PHOSPHATASE 2020-11-08 08:58:00 Yuriy Parker MD ALANINE AMINOTRANSFERASE 2020-11-08 08:58:00 Yuriy Parker MD ASPARTATE AMINOTRANSFERASE 2020-11-08 08:58:00 Carmencita Parker MD TOTAL PROTEIN 2020-11-08 08:58:00 Yuriy Parker MD Jay rson FRACTIONATED BILIRUBIN 2020-11-08 08:58:00 Yuriy Parker MD GLUCOSE LEVEL 2020-11-08 08:58:00 Yuriy Parker MD rson BLOOD UREA NITROGEN 2020-11-08 08:58:00 Yuriy Parker MD ELECTROLYTE PANEL 2020-11-08 08:58:00 Yuriy Parker MD SERUM CREATININE 2020-11-08 08:58:00 Yuriy Parker MD And erson .GLOMERULAR FILTRATION 2020-11-08 08:58:00 Yuriy Parker MD RATE CALCIUM LEVEL TOTAL 2020-11-08 08:58:00 Yuriy Parker MD Results CBC 2020-11-08 08:58:00 Yanet Gurrola MD MANUAL DIFFERENTIAL 2020-11-08 08:58:00 Yanet Gurrola MD Jay rson OSCILLATORY PEP 2020-11-08 07:00:15 Kristina Blake MD OSCILLATORY PEP 2020-11-08 01:00:07 Kristina Blake MD LOWER RESPIRATORY CULTURE 2020-11-08 00:20:00 Kristina Blake MD W/ GRAM STAIN OSCILLATORY PEP 2020-11-07 19:00:27 Bebe Blake MD Barrientos OSCILLATORY PEP 2020-11-07 13:00:08 Kristina Blake MD HEPATIC FUNCTION PANEL 2020-11-07 08:41:00 Yuriy Parker MD COMPREHENSIVE METABOLIC 2020-11-07 08:41:00 Yuriy Parker MD PANEL MAGNESIUM LEVEL 2020-11-07 08:41:00 Yuriy Parker MD Jay rson PHOSPHORUS LEVEL 2020-11-07 08:41:00 Yuriy Parker MD And erson LACTATE DEHYDROGENASE 2020-11-07 08:41:00 Yanet Gurrola MD COMPLETE BLOOD COUNT W/ 2020-11-07 08:41:00 Yanet Gurrola MD DIFFERENTIAL TYPE AND SCREEN 2020-11-07 08:41:00 Vania Pascual MD Hermna on URIC ACID 2020-11-07 08:41:00 Mari Lovell MD Anderso n [facility] 2020-11-07 08:41:00 Randolph Payne MD ANTIBODY SCREEN 2020-11-07 08:41:00 Randolph Payne MD ALBUMIN LEVEL 2020-11-07 08:41:00 Yuriy Parker MD Jay rson ALKALINE PHOSPHATASE 2020-11-07 08:41:00 Yuriy Parker MD ALANINE AMINOTRANSFERASE 2020-11-07 08:41:00 Yuriy Parker MD ASPARTATE AMINOTRANSFERASE 2020-11-07 08:41:00 Carmencita Parker MD TOTAL PROTEIN 2020-11-07 08:41:00 Yuriy Parker MD Jay rson FRACTIONATED BILIRUBIN 2020-11-07 08:41:00 Yuriy Parker MD GLUCOSE LEVEL 2020-11-07 08:41:00 Yuriy Parker MD Jay rson BLOOD UREA NITROGEN 2020-11-07 08:41:00 Yuriy Parker MD ELECTROLYTE PANEL 2020-11-07 08:41:00 Yuriy Parker MD SERUM CREATININE 2020-11-07 08:41:00 Yuriy Parker MD And erson .GLOMERULAR FILTRATION 2020-11-07 08:41:00 Yuriy Parker MD RATE CALCIUM LEVEL TOTAL 2020-11-07 08:41:00 Yuriy Parker MD Results CBC 2020-11-07 08:41:00 Yanet Gurrola MD MANUAL DIFFERENTIAL 2020-11-07 08:41:00 Yanet Gurrola MD Jay rson CLOT EXPIRATION DATE 2020-11-07 08:41:00 Randolph Payne MD Jay rson TMP INTERPRETATION 2020-11-07 08:41:00 Randolph Payne MD Herman on ANTIBODY SCREEN NEGATIVE OSCILLATORY PEP 2020-11-07 07:00:14 Kristina Blake MD OSCILLATORY PEP 2020-11-07 01:00:10 Kristina Blake MD ECHOCARDIOGRAM 2D LIMITED 2020-11-06 19:42:45 Evi Turner MD - FOLLOW UP OSCILLATORY PEP 2020-11-06 19:00:13 Kristina Blake MD OSCILLATORY PEP 2020-11-06 13:00:14 Kristina Blake MD HEPATIC FUNCTION PANEL 2020-11-06 08:26:00 Yuriy Parker MD COMPREHENSIVE METABOLIC 2020-11-06 08:26:00 Yuriy Parker MD PANEL MAGNESIUM LEVEL 2020-11-06 08:26:00 Yuriy Parker MD Jay rson PHOSPHORUS LEVEL 2020-11-06 08:26:00 Yuriy Parker MD And erson LACTATE DEHYDROGENASE 2020-11-06 08:26:00 Yanet Gurrola MD COMPLETE BLOOD COUNT W/ 2020-11-06 08:26:00 Yanet Gurrola MD DIFFERENTIAL APTT 2020-11-06 08:26:00 Mari Lovell MD URIC ACID 2020-11-06 08:26:00 Mari Lovell MD PROTHROMBIN TIME 2020-11-06 08:26:00 Mari Lovell MD on ALBUMIN LEVEL 2020-11-06 08:26:00 Yuriy Parker MD Jay rson ALKALINE PHOSPHATASE 2020-11-06 08:26:00 Yuriy Parker MD ALANINE AMINOTRANSFERASE 2020-11-06 08:26:00 Yuriy Parker MD ASPARTATE AMINOTRANSFERASE 2020-11-06 08:26:00 Carmencita Parker MD TOTAL PROTEIN 2020-11-06 08:26:00 Yuriy Parker MD Jay rson FRACTIONATED BILIRUBIN 2020-11-06 08:26:00 Yuriy Parker MD GLUCOSE LEVEL 2020-11-06 08:26:00 Yuriy Parker MD Jay rson BLOOD UREA NITROGEN 2020-11-06 08:26:00 Yuriy Parker MD ELECTROLYTE PANEL 2020-11-06 08:26:00 Yuriy Parker MD SERUM CREATININE 2020-11-06 08:26:00 Yuriy Parker MD And erson .GLOMERULAR FILTRATION 2020-11-06 08:26:00 Yuriy Parker MD RATE CALCIUM LEVEL TOTAL 2020-11-06 08:26:00 Yuriy Parker MD Results CBC 2020-11-06 08:26:00 Yanet Gurrola MD MANUAL DIFFERENTIAL 2020-11-06 08:26:00 Yanet Gurrola MD Jya rson OSCILLATORY PEP 2020-11-06 01:00:09 Kristina Blake MD XR CHEST 1 VW 2020-11-05 20:44:40 Evi Turner MD OSCILLATORY PEP 2020-11-05 19:00:05 Kristina Blake MD OSCILLATORY PEP 2020-11-05 13:00:07 Kristina Blake MD HEPATIC FUNCTION PANEL 2020-11-05 07:14:00 Yuriy Parker MD COMPREHENSIVE METABOLIC 2020-11-05 07:14:00 Yuriy Parker MD PANEL MAGNESIUM LEVEL 2020-11-05 07:14:00 Yuriy Parker MD Jay rson PHOSPHORUS LEVEL 2020-11-05 07:14:00 Yuriy Parker MD And erson LACTATE DEHYDROGENASE 2020-11-05 07:14:00 Yanet Gurrola MD COMPLETE BLOOD COUNT W/ 2020-11-05 07:14:00 Yanet Gurrola MD DIFFERENTIAL URIC ACID 2020-11-05 07:14:00 Mari Lovell MD ALBUMIN LEVEL 2020-11-05 07:14:00 Yuriy Parker MD Jay rson ALKALINE PHOSPHATASE 2020-11-05 07:14:00 Yuriy Parker MD ALANINE AMINOTRANSFERASE 2020-11-05 07:14:00 Yuriy Parker MD ASPARTATE AMINOTRANSFERASE 2020-11-05 07:14:00 Carmencita Parker MD TOTAL PROTEIN 2020-11-05 07:14:00 Yuriy Parker MD Jay rson FRACTIONATED BILIRUBIN 2020-11-05 07:14:00 Yuriy Parker MD GLUCOSE LEVEL 2020-11-05 07:14:00 Yuriy Parker MD Jay rson BLOOD UREA NITROGEN 2020-11-05 07:14:00 Yuriy Parker MD ELECTROLYTE PANEL 2020-11-05 07:14:00 Yuriy Parker MD SERUM CREATININE 2020-11-05 07:14:00 Yuriy Parker MD And erson .GLOMERULAR FILTRATION 2020-11-05 07:14:00 Yuriy Parker MD RATE CALCIUM LEVEL TOTAL 2020-11-05 07:14:00 Yuriy Parker MD Results CBC 2020-11-05 07:14:00 Yanet Gurrola MD MANUAL DIFFERENTIAL 2020-11-05 07:14:00 Yanet Gurrola MD Jay rsaldo OSCILLATORY PEP 2020-11-05 02:07:06 Kristina Blake MD HEPATIC FUNCTION PANEL 2020-11-04 08:46:00 Yuriy Parker MD COMPREHENSIVE METABOLIC 2020-11-04 08:46:00 Yuriy Parker MD PANEL MAGNESIUM LEVEL 2020-11-04 08:46:00 Yuriy Parker MD Jay rson PHOSPHORUS LEVEL 2020-11-04 08:46:00 Yuriy Parker MD And erson LACTATE DEHYDROGENASE 2020-11-04 08:46:00 Yanet Gurrola MD COMPLETE BLOOD COUNT W/ 2020-11-04 08:46:00 Yanet Gurrola MD DIFFERENTIAL TYPE AND SCREEN 2020-11-04 08:46:00 Vanai Pascual MD Herman on URIC ACID 2020-11-04 08:46:00 Mari Lovell MD [facility] 2020-11-04 08:46:00 Randolph Payne MD ANTIBODY SCREEN 2020-11-04 08:46:00 Randolph Payne MD ALBUMIN LEVEL 2020-11-04 08:46:00 Yuriy Parker MD Jay rsaldo ALKALINE PHOSPHATASE 2020-11-04 08:46:00 Yuriy Parker MD ALANINE AMINOTRANSFERASE 2020-11-04 08:46:00 Yuriy Parker MD ASPARTATE AMINOTRANSFERASE 2020-11-04 08:46:00 Carmencita Parker MD TOTAL PROTEIN 2020-11-04 08:46:00 Yuriy Parker MD Jay rson FRACTIONATED BILIRUBIN 2020-11-04 08:46:00 Yuriy Parker MD GLUCOSE LEVEL 2020-11-04 08:46:00 Yuriy Parker MD Jay rson BLOOD UREA NITROGEN 2020-11-04 08:46:00 Yuriy Parker MD ELECTROLYTE PANEL 2020-11-04 08:46:00 Yuriy Parker MD SERUM CREATININE 2020-11-04 08:46:00 Yuriy Parker MD And erson .GLOMERULAR FILTRATION 2020-11-04 08:46:00 Yuriy Parker MD RATE CALCIUM LEVEL TOTAL 2020-11-04 08:46:00 Yuriy Parker MD Results CBC 2020-11-04 08:46:00 Yanet Gurrola MD MANUAL DIFFERENTIAL 2020-11-04 08:46:00 Yanet Gurrola MD Jay rson CLOT EXPIRATION DATE 2020-11-04 08:46:00 Randolph Payne MD Jay rson TMP INTERPRETATION 2020-11-04 08:46:00 Randolph Payne MD Herman on ANTIBODY SCREEN NEGATIVE POC GLUCOSE SCREEN 2020-11-04 04:28:00 Kristina Blake MD Herman on COVID-19 (SARS-COV-2) 2020-11-03 11:37:00 Kristina Blake MD And erson PCR-ASYMPTOMATIC HEPATIC FUNCTION PANEL 2020-11-03 08:10:00 Yuriy Parker MD COMPREHENSIVE METABOLIC 2020-11-03 08:10:00 Yuriy Parker MD PANEL MAGNESIUM LEVEL 2020-11-03 08:10:00 Yuriy Parker MD Jay rson PHOSPHORUS LEVEL 2020-11-03 08:10:00 Yuriy Parker MD And erson LACTATE DEHYDROGENASE 2020-11-03 08:10:00 Yanet Gurrola MD COMPLETE BLOOD COUNT W/ 2020-11-03 08:10:00 Yanet Gurrola MD DIFFERENTIAL APTT 2020-11-03 08:10:00 Mari Lovell MD URIC ACID 2020-11-03 08:10:00 Mari Lovell MD PROTHROMBIN TIME 2020-11-03 08:10:00 Mari Lovell MD on ALBUMIN LEVEL 2020-11-03 08:10:00 Yuriy Parker MD Jay rson ALKALINE PHOSPHATASE 2020-11-03 08:10:00 Yuriy Parker MD ALANINE AMINOTRANSFERASE 2020-11-03 08:10:00 Yuriy Parker MD ASPARTATE AMINOTRANSFERASE 2020-11-03 08:10:00 Carmencita Parker MD TOTAL PROTEIN 2020-11-03 08:10:00 Yuriy Parker MD Jay rson FRACTIONATED BILIRUBIN 2020-11-03 08:10:00 Yuriy Parker MD GLUCOSE LEVEL 2020-11-03 08:10:00 Yuriy Parker MD Jay rson BLOOD UREA NITROGEN 2020-11-03 08:10:00 Yuriy Parker MD ELECTROLYTE PANEL 2020-11-03 08:10:00 Yuriy Parker MD SERUM CREATININE 2020-11-03 08:10:00 Yuriy Parker MD And erson .GLOMERULAR FILTRATION 2020-11-03 08:10:00 Yuriy Parker MD RATE CALCIUM LEVEL TOTAL 2020-11-03 08:10:00 Yuriy Parker MD Results CBC 2020-11-03 08:10:00 Yanet Gurrola MD MANUAL DIFFERENTIAL 2020-11-03 08:10:00 Yanet Gurrola MD Jay rson RIGHT HEART CATH 2020-11-02 15:17:00 Cj Coyne MD POC OXIMETRY VENOUS 2020-11-02 15:00:00 Kristina Blake MD son POC OXIMETRY VENOUS 2020-11-02 14:57:00 Kristina Blake MD son APTT 2020-11-02 09:41:00 Cj Coyne MD PROTHROMBIN TIME 2020-11-02 09:41:00 Cj Coyne MD IMMATURE PLATELET FRACTION 2020-11-02 09:41:00 Cj Coyne RETICULOCYTE COUNT 2020-11-02 09:41:00 Cj Coyne MD Herman on AUTOMATED HEPATIC FUNCTION PANEL 2020-11-02 09:41:00 Yuriy Parker MD COMPREHENSIVE METABOLIC 2020-11-02 09:41:00 Yuriy Parker MD PANEL MAGNESIUM LEVEL 2020-11-02 09:41:00 Yuriy Parker MD Jay rson PHOSPHORUS LEVEL 2020-11-02 09:41:00 Yuriy Parker MD And erson LACTATE DEHYDROGENASE 2020-11-02 09:41:00 Yanet Gurrola MD COMPLETE BLOOD COUNT W/ 2020-11-02 09:41:00 Yanet Gurrola MD DIFFERENTIAL URIC ACID 2020-11-02 09:41:00 Mari Lovell MD ALBUMIN LEVEL 2020-11-02 09:41:00 Yuriy Parker MD Jay rson ALKALINE PHOSPHATASE 2020-11-02 09:41:00 Yuriy Parker MD ALANINE AMINOTRANSFERASE 2020-11-02 09:41:00 Yuriy Parker MD ASPARTATE AMINOTRANSFERASE 2020-11-02 09:41:00 Carmencita Parker MD TOTAL PROTEIN 2020-11-02 09:41:00 Yuriy Parker MD Jay rson FRACTIONATED BILIRUBIN 2020-11-02 09:41:00 Yuriy Parker MD GLUCOSE LEVEL 2020-11-02 09:41:00 Yuriy Parker MD Jay rson BLOOD UREA NITROGEN 2020-11-02 09:41:00 Yuriy Parker MD ELECTROLYTE PANEL 2020-11-02 09:41:00 Yuriy Parker MD SERUM CREATININE 2020-11-02 09:41:00 Yuriy Parker MD And erson .GLOMERULAR FILTRATION 2020-11-02 09:41:00 Yuriy Parker MD RATE CALCIUM LEVEL TOTAL 2020-11-02 09:41:00 Yuriy Parker MD Results CBC 2020-11-02 09:41:00 Yanet Gurrola MD MANUAL DIFFERENTIAL 2020-11-02 09:41:00 Yanet Gurrola MD Jay rsaldo TRANSFUSE RED BLOOD CELLS 2020-11-01 16:00:00 Kristina Blake MD PREPARE RBC 2020-11-01 11:07:00 Kristina Blake MD PRBC PRODUCT READY FOR 2020-11-01 11:07:00 Kristina Blake MD MANAGER CORPORATE VRE CULTURE 2020-11-01 10:36:00 Yuriy Parker MD Jay rslado HEPATIC FUNCTION PANEL 2020-11-01 09:56:00 Yuriy Parker MD COMPREHENSIVE METABOLIC 2020-11-01 09:56:00 Yuriy Parker MD PANEL MAGNESIUM LEVEL 2020-11-01 09:56:00 Yuriy Parker MD Jay rson PHOSPHORUS LEVEL 2020-11-01 09:56:00 Yuriy Parker MD And erson LACTATE DEHYDROGENASE 2020-11-01 09:56:00 Yanet Gurrola MD COMPLETE BLOOD COUNT W/ 2020-11-01 09:56:00 Yanet Gurrola MD DIFFERENTIAL TYPE AND SCREEN 2020-11-01 09:56:00 Vania Pascual MD on URIC ACID 2020-11-01 09:56:00 Mari Lovell MD Andprabhjoto n ABORH 2020-11-01 09:56:00 Randolph Payne MD ANTIBODY SCREEN 2020-11-01 09:56:00 Randolph Payne MD ALBUMIN LEVEL 2020-11-01 09:56:00 Yuriy Parker MD Jay rson ALKALINE PHOSPHATASE 2020-11-01 09:56:00 Yuriy Parker MD ALANINE AMINOTRANSFERASE 2020-11-01 09:56:00 Yuriy Parker MD ASPARTATE AMINOTRANSFERASE 2020-11-01 09:56:00 Carmencita Parker MD TOTAL PROTEIN 2020-11-01 09:56:00 Yuriy Parker MD Jay rson FRACTIONATED BILIRUBIN 2020-11-01 09:56:00 Yuriy Parker MD GLUCOSE LEVEL 2020-11-01 09:56:00 Yuriy Parker MD Jay rson BLOOD UREA NITROGEN 2020-11-01 09:56:00 Yuriy Parker MD ELECTROLYTE PANEL 2020-11-01 09:56:00 Yuriy Parker MD SERUM CREATININE 2020-11-01 09:56:00 Yuriy Parker MD And erson .GLOMERULAR FILTRATION 2020-11-01 09:56:00 Yuriy Parker MD RATE CALCIUM LEVEL TOTAL 2020-11-01 09:56:00 Yuriy Parker MD Results CBC 2020-11-01 09:56:00 Yanet Gurrola MD MANUAL DIFFERENTIAL 2020-11-01 09:56:00 Yanet Gurrola MD Jay rsaldo CLOT EXPIRATION DATE 2020-11-01 09:56:00 Randolph Payne MD Jay rsaldo TMP INTERPRETATION 2020-11-01 09:56:00 Randolph aPyne MD on ANTIBODY SCREEN NEGATIVE NT PRO BNP 2020-10-31 09:13:00 Mari Lovell MD HEPATIC FUNCTION PANEL 2020-10-31 09:13:00 Yuriy Parker MD COMPREHENSIVE METABOLIC 2020-10-31 09:13:00 Yuriy Parker MD PANEL MAGNESIUM LEVEL 2020-10-31 09:13:00 Yuriy Parker MD Jay rson PHOSPHORUS LEVEL 2020-10-31 09:13:00 Yuriy Parker MD And erson LACTATE DEHYDROGENASE 2020-10-31 09:13:00 Yanet Gurrola MD COMPLETE BLOOD COUNT W/ 2020-10-31 09:13:00 Yanet Gurrola MD DIFFERENTIAL URIC ACID 2020-10-31 09:13:00 Mari Lovell MD ALBUMIN LEVEL 2020-10-31 09:13:00 Yuriy Parker MD Jay rsaldo ALKALINE PHOSPHATASE 2020-10-31 09:13:00 Yuriy Parker MD ALANINE AMINOTRANSFERASE 2020-10-31 09:13:00 Yuriy Parker MD ASPARTATE AMINOTRANSFERASE 2020-10-31 09:13:00 Carmencita Parker MD TOTAL PROTEIN 2020-10-31 09:13:00 Yuriy Parker MD Jay rsaldo FRACTIONATED BILIRUBIN 2020-10-31 09:13:00 Yuriy Parker MD GLUCOSE LEVEL 2020-10-31 09:13:00 Yuriy Parker MD Jay rsaldo BLOOD UREA NITROGEN 2020-10-31 09:13:00 Yuriy Parker MD ELECTROLYTE PANEL 2020-10-31 09:13:00 Yuriy Parker MD SERUM CREATININE 2020-10-31 09:13:00 Yuriy Parker MD And erson .GLOMERULAR FILTRATION 2020-10-31 09:13:00 Yuriy Parker MD RATE CALCIUM LEVEL TOTAL 2020-10-31 09:13:00 Yuriy Parker MD Results CBC 2020-10-31 09:13:00 Yanet Gurrola MD MANUAL DIFFERENTIAL 2020-10-31 09:13:00 Yanet Gurrola MD rsaldo TRANSFUSE RED BLOOD CELLS 2020-10-30 20:20:00 Kristina Blake MD URINALYSIS MICROSCOPIC 2020-10-30 18:46:00 Kristina Blake MD MICROALBUMIN/CREATININE 2020-10-30 18:46:00 Denny Nayak MD nderson RATIO, URINE PROTEIN / CREATININE RATIO 2020-10-30 18:46:00 Denny Nayak URINE ALBUMIN LEVEL URINE 2020-10-30 18:46:00 Cory Hickman MD son URINALYSIS WITH 2020-10-30 18:46:00 Kristina Blake MD MICROSCOPIC IF INDICATED LOWER RESPIRATORY CULTURE 2020-10-30 18:46:00 Kristina Blake MD W/ GRAM STAIN POC GLUCOSE SCREEN 2020-10-30 14:02:00 Kristina Blake MD on PREPARE RBC 2020-10-30 09:21:00 Kristina Blake MD PRBC PRODUCT READY FOR 2020-10-30 09:21:00 Kristina lBake MD MANAGER CORPORATE HEPATIC FUNCTION PANEL 2020-10-30 08:45:00 Yuriy Parker MD COMPREHENSIVE METABOLIC 2020-10-30 08:45:00 Yuriy Parker MD PANEL MAGNESIUM LEVEL 2020-10-30 08:45:00 Yuriy Parker MD Jay rson PHOSPHORUS LEVEL 2020-10-30 08:45:00 Yuriy Parker MD And erson LACTATE DEHYDROGENASE 2020-10-30 08:45:00 Yanet Gurrola MD COMPLETE BLOOD COUNT W/ 2020-10-30 08:45:00 Yanet Gurrola MD DIFFERENTIAL APTT 2020-10-30 08:45:00 Mari Lovell MD URIC ACID 2020-10-30 08:45:00 Mari Lovell MD PROTHROMBIN TIME 2020-10-30 08:45:00 Mari Lovell MD on ALBUMIN LEVEL 2020-10-30 08:45:00 Yuriy Parker MD Jay rson ALKALINE PHOSPHATASE 2020-10-30 08:45:00 Yuriy Parker MD ALANINE AMINOTRANSFERASE 2020-10-30 08:45:00 Yuriy Parker MD ASPARTATE AMINOTRANSFERASE 2020-10-30 08:45:00 Carmencita Parker MD TOTAL PROTEIN 2020-10-30 08:45:00 Yuriy Parker MD Jay rson FRACTIONATED BILIRUBIN 2020-10-30 08:45:00 Yuriy Parker MD GLUCOSE LEVEL 2020-10-30 08:45:00 Yuriy Parker MD Jay rson BLOOD UREA NITROGEN 2020-10-30 08:45:00 Yuriy Parker MD ELECTROLYTE PANEL 2020-10-30 08:45:00 Yuriy Parker MD SERUM CREATININE 2020-10-30 08:45:00 Yuriy Parker MD And erson .GLOMERULAR FILTRATION 2020-10-30 08:45:00 Yuriy Parker MD RATE CALCIUM LEVEL TOTAL 2020-10-30 08:45:00 Yuriy Parker MD Results CBC 2020-10-30 08:45:00 Yanet Gurrola MD MANUAL DIFFERENTIAL 2020-10-30 08:45:00 Yanet Gurrola MD Jay rson POC GLUCOSE SCREEN 2020-10-30 05:05:00 Kristina Blake MD Herman on POC GLUCOSE SCREEN 2020-10-29 22:56:00 Kristina Blake MD Herman on ECHOCARDIOGRAM 2D COMPLETE 2020-10-29 16:59:06 Tre Banerjee POC GLUCOSE SCREEN 2020-10-29 16:54:00 Kristina Blakeers on POC GLUCOSE SCREEN 2020-10-29 13:00:00 Kristina Blake MD Herman on HEPATIC FUNCTION PANEL 2020-10-29 09:26:00 Yuriy Parker MD COMPREHENSIVE METABOLIC 2020-10-29 09:26:00 Yuriy Parker MD PANEL MAGNESIUM LEVEL 2020-10-29 09:26:00 Yuriy Parker MD Jay rson PHOSPHORUS LEVEL 2020-10-29 09:26:00 Yuriy Parker MD And erson LACTATE DEHYDROGENASE 2020-10-29 09:26:00 Yanet Gurrola MD COMPLETE BLOOD COUNT W/ 2020-10-29 09:26:00 Yanet Gurrola MD DIFFERENTIAL TYPE AND SCREEN 2020-10-29 09:26:00 Vania Pascual MD Herman on URIC ACID 2020-10-29 09:26:00 Mari Lovell MD [facility] 2020-10-29 09:26:00 Randolph Payne MD ANTIBODY SCREEN 2020-10-29 09:26:00 Randolph Payne MD ALBUMIN LEVEL 2020-10-29 09:26:00 Yuriy Parker MD Jay rson ALKALINE PHOSPHATASE 2020-10-29 09:26:00 Yuriy Parker MD ALANINE AMINOTRANSFERASE 2020-10-29 09:26:00 Yuriy Parker MD ASPARTATE AMINOTRANSFERASE 2020-10-29 09:26:00 Carmencita Parker MD TOTAL PROTEIN 2020-10-29 09:26:00 Yuriy Parker MD Jay rson FRACTIONATED BILIRUBIN 2020-10-29 09:26:00 Yuriy Parker MD GLUCOSE LEVEL 2020-10-29 09:26:00 Yuriy Parker MD Jay rson BLOOD UREA NITROGEN 2020-10-29 09:26:00 Yuriy Parker MD ELECTROLYTE PANEL 2020-10-29 09:26:00 Yuriy Parker MD SERUM CREATININE 2020-10-29 09:26:00 Yuriy Parker MD And erson .GLOMERULAR FILTRATION 2020-10-29 09:26:00 Yuriy Parker MD RATE CALCIUM LEVEL TOTAL 2020-10-29 09:26:00 Yuriy Parker MD Results CBC 2020-10-29 09:26:00 Yanet Gurrola MD MANUAL DIFFERENTIAL 2020-10-29 09:26:00 Yanet Gurrola MD Jay rson CLOT EXPIRATION DATE 2020-10-29 09:26:00 Randolph Payne MD Jay rsaldo TMP INTERPRETATION 2020-10-29 09:26:00 Randolph Payne MD on ANTIBODY SCREEN NEGATIVE TMP CROSSMATCH 2020-10-29 09:26:00 Randolph Payne MD INTERPRETATION OSCILLATORY PEP 2020-10-29 07:00:13 Darryl Banerjee MD OSCILLATORY PEP 2020-10-29 01:00:08 Darryl Banerjee MD POC GLUCOSE SCREEN 2020-10-28 22:29:00 Kristina Blake MD on OSCILLATORY PEP 2020-10-28 19:00:21 Darryl Banerjee MD POC GLUCOSE SCREEN 2020-10-28 17:17:00 Kristina Blake MD on PROTEIN / CREATININE RATIO 2020-10-28 17:14:00 Denny Nayak URINE MICROALBUMIN/CREATININE 2020-10-28 17:14:00 Denny Nayak MD nderson RATIO, URINE ALBUMIN LEVEL URINE 2020-10-28 17:14:00 Cory Hickman MD Dereck son NT PRO BNP 2020-10-28 15:56:00 Tre Banerjee MD XR CHEST 1 VW PORTABLE 2020-10-28 15:46:00 Tre Banerjee MDson POC GLUCOSE SCREEN 2020-10-28 14:25:00 Kristina Blake MD on POC GLUCOSE SCREEN 2020-10-28 13:58:00 Kristina Blake MD on HEPATIC FUNCTION PANEL 2020-10-28 09:39:00 Yuriy Parker MD COMPREHENSIVE METABOLIC 2020-10-28 09:39:00 Yuriy Parker MD PANEL MAGNESIUM LEVEL 2020-10-28 09:39:00 Yuriy Parker MD Jay rson PHOSPHORUS LEVEL 2020-10-28 09:39:00 Yuriy Parker MD And erson LACTATE DEHYDROGENASE 2020-10-28 09:39:00 Yanet Gurrola MD COMPLETE BLOOD COUNT W/ 2020-10-28 09:39:00 Yanet Gurrola MD DIFFERENTIAL URIC ACID 2020-10-28 09:39:00 Mari Lovell MD n ALBUMIN LEVEL 2020-10-28 09:39:00 Yuriy Parker MD Jay rson ALKALINE PHOSPHATASE 2020-10-28 09:39:00 Yuriy Parker MD ALANINE AMINOTRANSFERASE 2020-10-28 09:39:00 Yuriy Parker MD ASPARTATE AMINOTRANSFERASE 2020-10-28 09:39:00 Carmencita Parker MD TOTAL PROTEIN 2020-10-28 09:39:00 Yuriy Parker MD Jay rson FRACTIONATED BILIRUBIN 2020-10-28 09:39:00 Yuriy Parker MD GLUCOSE LEVEL 2020-10-28 09:39:00 Yuriy Parker MD Jay rson BLOOD UREA NITROGEN 2020-10-28 09:39:00 Yuriy Parker MD ELECTROLYTE PANEL 2020-10-28 09:39:00 Yuriy Parker MDson SERUM CREATININE 2020-10-28 09:39:00 Yuriy Parker MD And erson .GLOMERULAR FILTRATION 2020-10-28 09:39:00 Yuriy Parker MD RATE CALCIUM LEVEL TOTAL 2020-10-28 09:39:00 Yuriy Parker MD Results CBC 2020-10-28 09:39:00 Yanet Gurrola MD MANUAL DIFFERENTIAL 2020-10-28 09:39:00 Yanet Gurroal MD Jay rson OSCILLATORY PEP 2020-10-28 07:00:14 Darryl Banerjee MD POC GLUCOSE SCREEN 2020-10-28 05:15:00 Kristina Blake MD on OSCILLATORY PEP 2020-10-28 01:00:07 Darryl Banerjee MD EKG, 12-LEAD (PORTABLE) 2020-10-28 00:00:00 Tre Banerjee MD nderson POC GLUCOSE SCREEN 2020-10-27 23:00:00 Kristina Blake MD on OSCILLATORY PEP 2020-10-27 19:00:51 Darryl Banerjee MD COVID-19 (SARS-COV-2) 2020-10-27 17:51:00 Randolph Payne MD And prabhjoton PCR-ASYMPTOMATIC MC URINE CULTURE 2020-10-27 17:22:00 Mari Lovell MD POC GLUCOSE SCREEN 2020-10-27 16:36:00 Kristina Blake MD on TOBRAMYCIN LEVEL RANDOM 2020-10-27 14:55:00 Kaykay Dodd MD POC GLUCOSE SCREEN 2020-10-27 10:18:00 Randolph Payne MD Herman on HBV DNA QUANT 2020-10-27 08:32:00 Mari Lovell MD PROTHROMBIN TIME 2020-10-27 08:32:00 Yuriy Parker MD And erson APTT 2020-10-27 08:32:00 Yuriy Parker MD Jay rson HEPATIC FUNCTION PANEL 2020-10-27 08:32:00 Yuriy Parker MD COMPREHENSIVE METABOLIC 2020-10-27 08:32:00 Yuriy Parker MD PANEL MAGNESIUM LEVEL 2020-10-27 08:32:00 Yuriy Parker MD Jay rson PHOSPHORUS LEVEL 2020-10-27 08:32:00 Yuriy Parker MD And erson LACTATE DEHYDROGENASE 2020-10-27 08:32:00 Yanet Gurrola MD FERRITIN LVL 2020-10-27 08:32:00 Yanet Gurrola MD COMPLETE BLOOD COUNT W/ 2020-10-27 08:32:00 Yanet Gurrola MD DIFFERENTIAL ALBUMIN LEVEL 2020-10-27 08:32:00 Yuriy Parker MD Jay rson ALKALINE PHOSPHATASE 2020-10-27 08:32:00 Yuriy Parker MD ALANINE AMINOTRANSFERASE 2020-10-27 08:32:00 Yuriy Parker MD ASPARTATE AMINOTRANSFERASE 2020-10-27 08:32:00 Carmencita Parker MD TOTAL PROTEIN 2020-10-27 08:32:00 Yuriy Parker MD Jay rson FRACTIONATED BILIRUBIN 2020-10-27 08:32:00 Yuriy Parker MD GLUCOSE LEVEL 2020-10-27 08:32:00 Yuriy Parker MD Jay rson BLOOD UREA NITROGEN 2020-10-27 08:32:00 Yuriy Parker MD ELECTROLYTE PANEL 2020-10-27 08:32:00 Yuriy Parker MD SERUM CREATININE 2020-10-27 08:32:00 Yuriy Parker MD And erson .GLOMERULAR FILTRATION 2020-10-27 08:32:00 Yuriy Parker MD RATE CALCIUM LEVEL TOTAL 2020-10-27 08:32:00 Yuriy Parker MD Results CBC 2020-10-27 08:32:00 Yanet Gurrola MD MANUAL DIFFERENTIAL 2020-10-27 08:32:00 Yanet Gurrola MD Jay rson POC GLUCOSE SCREEN 2020-10-27 04:53:00 Randolph Payne MD on OSCILLATORY PEP 2020-10-27 01:00:08 Darryl Banerjee MD URINALYSIS MICROSCOPIC 2020-10-26 22:41:00 Mari Lovell MD URINALYSIS WITH 2020-10-26 22:41:00 Randolph Payne MD MICROSCOPIC IF INDICATED POC GLUCOSE SCREEN 2020-10-26 22:23:00 Randolph Payne MD on OSCILLATORY PEP 2020-10-26 19:00:45 Darryl Banerjee MD POC GLUCOSE SCREEN 2020-10-26 16:14:00 Randolph Payne MD on OSCILLATORY PEP 2020-10-26 13:00:16 Darryl Banerjee MD POC GLUCOSE SCREEN 2020-10-26 11:02:00 Randolph Payne MD on PROTHROMBIN TIME 2020-10-26 09:43:00 Yuriy Parker MD And erson APTT 2020-10-26 09:43:00 Yuriy Parker MD Jay rson HEPATIC FUNCTION PANEL 2020-10-26 09:43:00 Yuriy Parker MD COMPREHENSIVE METABOLIC 2020-10-26 09:43:00 Yuriy Parker MD PANEL MAGNESIUM LEVEL 2020-10-26 09:43:00 Yuriy Parker MD Jay rson PHOSPHORUS LEVEL 2020-10-26 09:43:00 Yuriy Parker MD And erson LACTATE DEHYDROGENASE 2020-10-26 09:43:00 Yanet Gurrola MD FERRITIN LVL 2020-10-26 09:43:00 Yanet Gurrola MD COMPLETE BLOOD COUNT W/ 2020-10-26 09:43:00 Yanet Gurrola MD DIFFERENTIAL TYPE AND SCREEN 2020-10-26 09:43:00 Vania Pascual MD on ABORH 2020-10-26 09:43:00 Randolph Payne MD ANTIBODY SCREEN 2020-10-26 09:43:00 Randolph Payne MD ALBUMIN LEVEL 2020-10-26 09:43:00 Yuriy Parker MD Jay rson ALKALINE PHOSPHATASE 2020-10-26 09:43:00 Yuriy Parker MD ALANINE AMINOTRANSFERASE 2020-10-26 09:43:00 Yuriy Parker MD ASPARTATE AMINOTRANSFERASE 2020-10-26 09:43:00 Carmencita Parker MD TOTAL PROTEIN 2020-10-26 09:43:00 Yuriy Parker MD Jay rson FRACTIONATED BILIRUBIN 2020-10-26 09:43:00 Yuriy Parker MD GLUCOSE LEVEL 2020-10-26 09:43:00 Yuriy Parker MD Jay rson BLOOD UREA NITROGEN 2020-10-26 09:43:00 Yuriy Parker MD ELECTROLYTE PANEL 2020-10-26 09:43:00 Yuriy Parker MD SERUM CREATININE 2020-10-26 09:43:00 Yuriy Parker MD And erson .GLOMERULAR FILTRATION 2020-10-26 09:43:00 Yuriy Parker MD RATE CALCIUM LEVEL TOTAL 2020-10-26 09:43:00 Yuriy Parker MD Results CBC 2020-10-26 09:43:00 Yanet Gurrola MD MANUAL DIFFERENTIAL 2020-10-26 09:43:00 Yanet Gurrola MD Jay rsaldo TMP INTERPRETATION 2020-10-26 09:43:00 Randolph Payne MD on ANTIBODY SCREEN NEGATIVE CLOT EXPIRATION DATE 2020-10-26 09:43:00 Randolph Payne MD Jay rson OSCILLATORY PEP 2020-10-26 07:00:22 Darryl Banerjee MD POC GLUCOSE SCREEN 2020-10-26 06:29:00 Randolph Payne MD on OSCILLATORY PEP 2020-10-26 01:00:19 Darryl Banerjee MD POC GLUCOSE SCREEN 2020-10-25 23:13:00 Randolph Payne MD on VRE CULTURE 2020-10-25 21:51:00 Yuriy Parker MD Jay rson POC GLUCOSE SCREEN 2020-10-25 17:26:00 Randolph Payne MD on TRANSFUSE RED BLOOD CELLS 2020-10-25 17:05:00 Randolph Payne MD OSCILLATORY PEP 2020-10-25 13:00:10 Darryl Banerjee MD PREPARE RBC 2020-10-25 12:49:00 Randolph Payne MD PRBC PRODUCT READY FOR 2020-10-25 12:49:00 Randolph Payne MD MANAGER CORPORATE POC GLUCOSE SCREEN 2020-10-25 11:03:00 Randolph Payne MD on PROTHROMBIN TIME 2020-10-25 10:07:00 Yuriy Parker MD And erson APTT 2020-10-25 10:07:00 Yuriy Parker MD Jay rson HEPATIC FUNCTION PANEL 2020-10-25 10:07:00 Yuriy Parker MD COMPREHENSIVE METABOLIC 2020-10-25 10:07:00 Yuriy Parker MD PANEL MAGNESIUM LEVEL 2020-10-25 10:07:00 Yuriy Parker MD Jay rson PHOSPHORUS LEVEL 2020-10-25 10:07:00 Yuriy Parker MD And erson LACTATE DEHYDROGENASE 2020-10-25 10:07:00 Yanet Gurrola MD derson FERRITIN LVL 2020-10-25 10:07:00 Yanet Gurrola MD COMPLETE BLOOD COUNT W/ 2020-10-25 10:07:00 Yanet Gurrola MD DIFFERENTIAL ALBUMIN LEVEL 2020-10-25 10:07:00 Yuriy Parker MD Jay rson ALKALINE PHOSPHATASE 2020-10-25 10:07:00 Yuriy Parker MD ALANINE AMINOTRANSFERASE 2020-10-25 10:07:00 Yuriy Parker MD ASPARTATE AMINOTRANSFERASE 2020-10-25 10:07:00 Carmencita Parker MD TOTAL PROTEIN 2020-10-25 10:07:00 Yuriy Parker MD Jay rson FRACTIONATED BILIRUBIN 2020-10-25 10:07:00 Yuriy Parker MD GLUCOSE LEVEL 2020-10-25 10:07:00 Yuriy Parker MD Jay rson BLOOD UREA NITROGEN 2020-10-25 10:07:00 Yuriy Parker MD ELECTROLYTE PANEL 2020-10-25 10:07:00 Yuriy Parker MD derson SERUM CREATININE 2020-10-25 10:07:00 Yuriy Parker MD And erson .GLOMERULAR FILTRATION 2020-10-25 10:07:00 Yuriy Parker MD RATE CALCIUM LEVEL TOTAL 2020-10-25 10:07:00 Yuriy Parker MD Results CBC 2020-10-25 10:07:00 Yanet Gurrola MD MANUAL DIFFERENTIAL 2020-10-25 10:07:00 Yanet Gurrola MD Jay rson POC GLUCOSE SCREEN 2020-10-25 05:20:00 Randolph Payne MD on OSCILLATORY PEP 2020-10-25 01:00:12 Darryl Banerjee MD EKG, 12-LEAD (PORTABLE) 2020-10-25 00:00:00 Avila Head MD nderson POC GLUCOSE SCREEN 2020-10-24 22:56:00 Randolph Payne MD on POC GLUCOSE SCREEN 2020-10-24 17:13:00 Randolph Payne MD on OSCILLATORY PEP 2020-10-24 13:00:10 Darryl Banerjee MD POC GLUCOSE SCREEN 2020-10-24 10:35:00 Randolph Payne MD Herman on PROTHROMBIN TIME 2020-10-24 09:49:00 Yuriy Parker MD And erson APTT 2020-10-24 09:49:00 Yuriy Parker MD Jay rson HEPATIC FUNCTION PANEL 2020-10-24 09:49:00 Yuriy Parker MD COMPREHENSIVE METABOLIC 2020-10-24 09:49:00 Yuriy Parker MD PANEL MAGNESIUM LEVEL 2020-10-24 09:49:00 Yuriy Parker MD Jay rson PHOSPHORUS LEVEL 2020-10-24 09:49:00 Yuriy Parker MD And erson LACTATE DEHYDROGENASE 2020-10-24 09:49:00 Yanet Gurrola MD derson FERRITIN LVL 2020-10-24 09:49:00 Yanet Gurrola MD COMPLETE BLOOD COUNT W/ 2020-10-24 09:49:00 Yanet Gurrola MD DIFFERENTIAL ALBUMIN LEVEL 2020-10-24 09:49:00 Yuriy Parker MD Jay rson ALKALINE PHOSPHATASE 2020-10-24 09:49:00 Yuriy Parker MD ALANINE AMINOTRANSFERASE 2020-10-24 09:49:00 Yuriy Parker MD ASPARTATE AMINOTRANSFERASE 2020-10-24 09:49:00 Carmencita Parker MD TOTAL PROTEIN 2020-10-24 09:49:00 uYriy Parker MD Jay rson FRACTIONATED BILIRUBIN 2020-10-24 09:49:00 Yuriy Parker MD GLUCOSE LEVEL 2020-10-24 09:49:00 Yuriy Parker MD Jay rson BLOOD UREA NITROGEN 2020-10-24 09:49:00 Yuriy Parker MD ELECTROLYTE PANEL 2020-10-24 09:49:00 Yuriy Parker MDson SERUM CREATININE 2020-10-24 09:49:00 Yuriy Parker MD And erson .GLOMERULAR FILTRATION 2020-10-24 09:49:00 Yuriy Parker MD RATE CALCIUM LEVEL TOTAL 2020-10-24 09:49:00 Yuriy Parker MD Results CBC 2020-10-24 09:49:00 Yanet Gurrola MD MANUAL DIFFERENTIAL 2020-10-24 09:49:00 Yanet Gurrola MD Jay rson POC GLUCOSE SCREEN 2020-10-24 05:35:00 Randolph Payne MD on OSCILLATORY PEP 2020-10-24 01:00:14 Darryl Banerjee MD POC GLUCOSE SCREEN 2020-10-23 23:05:00 Randolph Payne MD on OSCILLATORY PEP 2020-10-23 19:00:51 Darryl Banerjee MD US LEG VENOUS DOPPLER 2020-10-23 18:44:00 Yuriy Parker BILATERAL XR ABDOMEN 1 VW PORTABLE 2020-10-23 17:11:33 Yuriy Parker MD POC GLUCOSE SCREEN 2020-10-23 17:03:00 Randolph Payne MD on OSCILLATORY PEP 2020-10-23 13:00:16 Darryl Banerjee MD POC GLUCOSE SCREEN 2020-10-23 11:37:00 Randolph Payne MD on PROTHROMBIN TIME 2020-10-23 08:59:00 Yuriy Parker MD And erson APTT 2020-10-23 08:59:00 Yuriy Parker MD Jay rson HEPATIC FUNCTION PANEL 2020-10-23 08:59:00 Yuriy Parker MD COMPREHENSIVE METABOLIC 2020-10-23 08:59:00 Yuriy Parker MD PANEL MAGNESIUM LEVEL 2020-10-23 08:59:00 Yuriy Parker MD Jay rson PHOSPHORUS LEVEL 2020-10-23 08:59:00 Yuriy Parker MD And erson LACTATE DEHYDROGENASE 2020-10-23 08:59:00 Yanet Gurrola MD derson FERRITIN LVL 2020-10-23 08:59:00 Yanet Gurrola MD COMPLETE BLOOD COUNT W/ 2020-10-23 08:59:00 Yanet Gurrola MD DIFFERENTIAL TYPE AND SCREEN 2020-10-23 08:59:00 Vania Pascual MD on ABORH 2020-10-23 08:59:00 Randolph Payne MD ANTIBODY SCREEN 2020-10-23 08:59:00 Randolph Payne MD ALBUMIN LEVEL 2020-10-23 08:59:00 Yuriy Parker MD Jay rson ALKALINE PHOSPHATASE 2020-10-23 08:59:00 Yuriy Parker MD ALANINE AMINOTRANSFERASE 2020-10-23 08:59:00 Yuriy Parker MD ASPARTATE AMINOTRANSFERASE 2020-10-23 08:59:00 Carmencita Parker MD TOTAL PROTEIN 2020-10-23 08:59:00 Yuriy Parker MD Jay rson FRACTIONATED BILIRUBIN 2020-10-23 08:59:00 Yuriy Parker MD GLUCOSE LEVEL 2020-10-23 08:59:00 Yuriy Parker MD Jay rson BLOOD UREA NITROGEN 2020-10-23 08:59:00 Yuriy Parker MD ELECTROLYTE PANEL 2020-10-23 08:59:00 Yuriy Parker MD SERUM CREATININE 2020-10-23 08:59:00 Yuriy Parker MD And erson .GLOMERULAR FILTRATION 2020-10-23 08:59:00 Yuriy Parker MD RATE CALCIUM LEVEL TOTAL 2020-10-23 08:59:00 Yuriy Parker MD Results CBC 2020-10-23 08:59:00 Yanet Gurrola MD MANUAL DIFFERENTIAL 2020-10-23 08:59:00 Yanet Gurrola MD Jay rson CLOT EXPIRATION DATE 2020-10-23 08:59:00 Randolph Payne MD Jay rson TMP INTERPRETATION 2020-10-23 08:59:00 Randolph Payne MD on ANTIBODY SCREEN NEGATIVE TMP CROSSMATCH 2020-10-23 08:59:00 Randolph Payne MD INTERPRETATION OSCILLATORY PEP 2020-10-23 07:00:20 Darryl Banerjee MD POC GLUCOSE SCREEN 2020-10-23 05:11:00 Randolph Payne MD on URINALYSIS WITH 2020-10-23 04:37:00 Yuriy Parker MD Jay rson MICROSCOPIC IF INDICATED URINALYSIS MICROSCOPIC 2020-10-23 04:37:00 Yuriy Parker MD OSCILLATORY PEP 2020-10-23 01:00:13 Darryl Banerjee MD POC GLUCOSE SCREEN 2020-10-23 00:03:00 Randolph Payne MD on XR ABDOMEN 1 VW PORTABLE 2020-10-22 21:53:42 Yuriy Parker MD OSCILLATORY PEP 2020-10-22 19:00:54 Darryl Banerjee MD POC GLUCOSE SCREEN 2020-10-22 17:08:00 Randolph Payne MD on XR CHEST 1 VW PORTABLE 2020-10-22 14:41:[address] CHEST WO CONTRAST 2020-10-22 13:09:11 Yanet Gurrola MD And erson OSCILLATORY PEP 2020-10-22 13:00:17 Darryl Banerjee MD POC GLUCOSE SCREEN 2020-10-22 11:24:00 Randolph Payne MD on HC CENT/MARKOS CATH VENOUS 2020-10-22 08:28:00 Randolph Payne MD COL MANUAL DIFFERENTIAL 2020-10-22 08:28:00 Randolph Payne MD Dereck son PROTHROMBIN TIME 2020-10-22 07:01:00 Yuriy Parekr MD And erson APTT 2020-10-22 07:01:00 Yuriy Parker MD Jay rson HEPATIC FUNCTION PANEL 2020-10-22 07:01:00 Yuriy Parker MD COMPREHENSIVE METABOLIC 2020-10-22 07:01:00 Yuriy Parker MD PANEL MAGNESIUM LEVEL 2020-10-22 07:01:00 Yuriy Parker MD Jay rson PHOSPHORUS LEVEL 2020-10-22 07:01:00 Yuriy Parker MD And erson LACTATE DEHYDROGENASE 2020-10-22 07:01:00 Yanet Gurrola MD derjulio FERRITIN LVL 2020-10-22 07:01:00 Yanet Gurrola MD ALBUMIN LEVEL 2020-10-22 07:01:00 Yuriy Parker MD Jay rson ALKALINE PHOSPHATASE 2020-10-22 07:01:00 Yuriy Parker MD ALANINE AMINOTRANSFERASE 2020-10-22 07:01:00 Yuriy Parker MD ASPARTATE AMINOTRANSFERASE 2020-10-22 07:01:00 Carmencita Parker MD TOTAL PROTEIN 2020-10-22 07:01:00 Yuriy Parker MD Jay rson FRACTIONATED BILIRUBIN 2020-10-22 07:01:00 Yuriy Parker MD GLUCOSE LEVEL 2020-10-22 07:01:00 Yuriy Parker MD Jay rson BLOOD UREA NITROGEN 2020-10-22 07:01:00 Yuriy Parker MD ELECTROLYTE PANEL 2020-10-22 07:01:00 Yuriy Parker MD SERUM CREATININE 2020-10-22 07:01:00 Yuriy Parker MD And erson .GLOMERULAR FILTRATION 2020-10-22 07:01:00 Yuriy Parker MD RATE CALCIUM LEVEL TOTAL 2020-10-22 07:01:00 Yuriy Parker MD OSCILLATORY PEP 2020-10-22 07:00:20 Darryl Banerjee MD OSCILLATORY PEP 2020-10-22 01:00:12 Darryl Banerjee MD POC GLUCOSE SCREEN 2020-10-21 23:10:00 Randolph Payne MD Herman on OSCILLATORY PEP 2020-10-21 19:00:52 Darryl Banerjee MD GASTROINTESTINAL MULTIPLEX 2020-10-21 18:49:00 Yanet Gurrola MD PANEL PATH REVIEW C DIFFICILE DNA ASSAY 2020-10-21 18:49:00 Yanet Gurrola MDson GASTROINTESTINAL MULTIPLEX 2020-10-21 18:49:00 Yaent Gurrola MD PANEL C DIFFICILE DNA ASSAY PATH 2020-10-21 18:49:00 Yanet Gurrola MD REVIEW POC GLUCOSE SCREEN 2020-10-21 17:13:00 Randolph Payne MD on POC GLUCOSE SCREEN 2020-10-21 11:15:00 Randolph Payne MD on PROTHROMBIN TIME 2020-10-21 09:51:00 Yuriy Parker MD And erson APTT 2020-10-21 09:51:00 Yuriy Parker MD Jay rson HEPATIC FUNCTION PANEL 2020-10-21 09:51:00 Yuriy Parker MD COMPREHENSIVE METABOLIC 2020-10-21 09:51:00 Yuriy Parker MD PANEL MAGNESIUM LEVEL 2020-10-21 09:51:00 Yuriy Parker MD Jay rson PHOSPHORUS LEVEL 2020-10-21 09:51:00 Yuriy Parker MD And erson LACTATE DEHYDROGENASE 2020-10-21 09:51:00 Yanet Gurrola MD FERRITIN LVL 2020-10-21 09:51:00 Yanet Gurrola MD COMPLETE BLOOD COUNT W/ 2020-10-21 09:51:00 Yanet Gurrola MD DIFFERENTIAL ALBUMIN LEVEL 2020-10-21 09:51:00 Yuriy Parker MD Jay rson ALKALINE PHOSPHATASE 2020-10-21 09:51:00 Yuriy Parker MD ALANINE AMINOTRANSFERASE 2020-10-21 09:51:00 Yuriy Parker MD ASPARTATE AMINOTRANSFERASE 2020-10-21 09:51:00 Carmencita Parker MD TOTAL PROTEIN 2020-10-21 09:51:00 Yuriy Parker MD Jay rson FRACTIONATED BILIRUBIN 2020-10-21 09:51:00 Yuriy Parker MD GLUCOSE LEVEL 2020-10-21 09:51:00 Yuriy Parker MD Jay rson BLOOD UREA NITROGEN 2020-10-21 09:51:00 Yuriy Parker MD ELECTROLYTE PANEL 2020-10-21 09:51:00 Yuriy Parker MD SERUM CREATININE 2020-10-21 09:51:00 Yuriy Parker MD And erson .GLOMERULAR FILTRATION 2020-10-21 09:51:00 Yuriy Parker MD RATE CALCIUM LEVEL TOTAL 2020-10-21 09:51:00 Yuriy Parker MD Results CBC 2020-10-21 09:51:00 Yanet Gurrola MD MANUAL DIFFERENTIAL 2020-10-21 09:51:00 Yanet Gurrola MD Jay rson CT ABDOMEN PELVIS WO 2020-10-21 05:16:13 Yanet Gurrola MD And erson CONTRAST POC GLUCOSE SCREEN 2020-10-21 03:33:00 Randolph Payne MD on OSCILLATORY PEP 2020-10-21 01:00:15 Darryl Banerjee MD LOWER RESPIRATORY CULTURE 2020-10-21 00:26:00 Parisa Andrews MD W/ GRAM STAIN POC GLUCOSE SCREEN 2020-10-20 22:16:00 Randolph Payne MD on OSCILLATORY PEP 2020-10-20 19:00:59 Darryl Banerjee MD COVID-19 (SARS-COV-2) 2020-10-20 17:18:00 Darryl Banerjee MD And erson PCR-ASYMPTOMATIC MC URINE CULTURE 2020-10-20 17:05:00 Yanet Gurrola MD XR ABDOMEN 1 VW PORTABLE 2020-10-20 15:36:17 Kevin Hernandez MD POC GLUCOSE SCREEN 2020-10-20 14:39:00 Randolph Payne MD on OSCILLATORY PEP 2020-10-20 13:00:15 Darryl Banerjee MD PROTHROMBIN TIME 2020-10-20 09:17:00 Yuriy Parker MD And erson APTT 2020-10-20 09:17:00 Yuriy Parker MD Jay rson HEPATIC FUNCTION PANEL 2020-10-20 09:17:00 Yuriy Parker MD COMPREHENSIVE METABOLIC 2020-10-20 09:17:00 Yuriy Parker MD PANEL MAGNESIUM LEVEL 2020-10-20 09:17:00 Yuriy Parker MD Jay rson PHOSPHORUS LEVEL 2020-10-20 09:17:00 Yuriy Parker MD And erson LACTATE DEHYDROGENASE 2020-10-20 09:17:00 Yanet Gurrola MD FERRITIN LVL 2020-10-20 09:17:00 Yanet Gurrola MD COMPLETE BLOOD COUNT W/ 2020-10-20 09:17:00 Yanet Gurrola MD DIFFERENTIAL TYPE AND SCREEN 2020-10-20 09:17:00 Yuriy Parker MD Jay rson ALBUMIN LEVEL 2020-10-20 09:17:00 Yuriy Parker MD Jay rson ALKALINE PHOSPHATASE 2020-10-20 09:17:00 Yuriy Parker MD ALANINE AMINOTRANSFERASE 2020-10-20 09:17:00 Yuriy Parker MD ASPARTATE AMINOTRANSFERASE 2020-10-20 09:17:00 Carmencita Parker MD TOTAL PROTEIN 2020-10-20 09:17:00 Yuriy Parker MD Jay rson FRACTIONATED BILIRUBIN 2020-10-20 09:17:00 Yuriy Parker MD GLUCOSE LEVEL 2020-10-20 09:17:00 Yuriy Parker MD Jay rson BLOOD UREA NITROGEN 2020-10-20 09:17:00 Yuriy Parker MD ELECTROLYTE PANEL 2020-10-20 09:17:00 Yuriy Parker MD SERUM CREATININE 2020-10-20 09:17:00 Yuriy Parker MD And erson .GLOMERULAR FILTRATION 2020-10-20 09:17:00 Yuriy Parker MD RATE CALCIUM LEVEL TOTAL 2020-10-20 09:17:00 Yuriy Parker MD Results CBC 2020-10-20 09:17:00 Yanet Gurrola MD MANUAL DIFFERENTIAL 2020-10-20 09:17:00 Yanet Gurrola MD rson ABORH 2020-10-20 09:17:00 Yuriy Parker MD Jay rson ANTIBODY SCREEN 2020-10-20 09:17:00 Yuriy Parker MD rsaldo CLOT EXPIRATION DATE 2020-10-20 09:17:00 Yuriy Parker MD TMP INTERPRETATION 2020-10-20 09:17:00 Yuriy Parker MD nderson ANTIBODY SCREEN NEGATIVE POC GLUCOSE SCREEN 2020-10-20 09:10:00 Darryl Banerjee MD on OSCILLATORY PEP 2020-10-20 07:00:20 Darryl Banerjee MD POC GLUCOSE SCREEN 2020-10-20 01:35:00 Darryl Banerjee MD on OSCILLATORY PEP 2020-10-20 01:00:14 Darryl Banerjee MD XR ABDOMEN 1 VW PORTABLE 2020-10-19 22:38:50 Yanet Gurrola MD XR CHEST 1 VW 2020-10-19 22:37:03 Yanet Gurrola MD URINALYSIS MICROSCOPIC 2020-10-19 19:34:00 Yanet Gurrola MD nderson URINALYSIS WITH 2020-10-19 19:34:00 Darryl Banerjee MD MICROSCOPIC IF INDICATED POC GLUCOSE SCREEN 2020-10-19 19:16:00 Darryl Banerjee MD on OSCILLATORY PEP 2020-10-19 19:00:55 Darryl Banerjee MD TRANSFUSE RED BLOOD CELLS 2020-10-19 18:35:00 Darryl Banerjee MD FERRITIN LVL 2020-10-19 16:25:00 Yanet Gurrola MD LACTATE DEHYDROGENASE 2020-10-19 16:25:00 Yanet Gurrola MD derson OSCILLATORY PEP 2020-10-19 13:00:17 Darryl Banerjee MD POC GLUCOSE SCREEN 2020-10-19 12:23:00 Darryl Banerjeeers on PREPARE RBC 2020-10-19 10:10:00 Darryl Banerjee MD PRBC PRODUCT READY FOR 2020-10-19 10:10:00 Darryl Banerjee MD MANAGER CORPORATE PROTHROMBIN TIME 2020-10-19 09:25:00 Yuriy Parker MD And erson APTT 2020-10-19 09:25:00 Yuriy Parker MD Jay rson HEPATIC FUNCTION PANEL 2020-10-19 09:25:00 Yuriy Parker MD COMPLETE BLOOD COUNT W/ 2020-10-19 09:25:00 Yuriy Parker MD INDICES COMPREHENSIVE METABOLIC 2020-10-19 09:25:00 Yuriy Parker MD PANEL MAGNESIUM LEVEL 2020-10-19 09:25:00 Yuriy Parker MD Jay rson PHOSPHORUS LEVEL 2020-10-19 09:25:00 Yuriy Parker MD And erson LACTIC ACID, VENOUS 2020-10-19 09:25:00 Yuriy Parker MD ALBUMIN LEVEL 2020-10-19 09:25:00 Yuriy Parker MD Jay rson ALKALINE PHOSPHATASE 2020-10-19 09:25:00 Yuriy Parker MD ALANINE AMINOTRANSFERASE 2020-10-19 09:25:00 Yuriy Parker MD ASPARTATE AMINOTRANSFERASE 2020-10-19 09:25:00 Carmencita Parker MD TOTAL PROTEIN 2020-10-19 09:25:00 Yuriy Parker MD Jay rson FRACTIONATED BILIRUBIN 2020-10-19 09:25:00 Yuriy Parker MD GLUCOSE LEVEL 2020-10-19 09:25:00 Yuriy Parker MD Jay rson BLOOD UREA NITROGEN 2020-10-19 09:25:00 Yuriy Parker MD ELECTROLYTE PANEL 2020-10-19 09:25:00 Yuriy Parker MD SERUM CREATININE 2020-10-19 09:25:00 Yuriy Parker MD And erson .GLOMERULAR FILTRATION 2020-10-19 09:25:00 Yuriy Parker MD RATE CALCIUM LEVEL TOTAL 2020-10-19 09:25:00 Yuriy Parker MD POC GLUCOSE SCREEN 2020-10-19 06:20:00 Darryl Banerjee MD on OSCILLATORY PEP 2020-10-19 01:00:15 Darryl Banerjee MD POC GLUCOSE SCREEN 2020-10-19 00:48:00 Darryl Banerjee MD on VRE CULTURE 2020-10-18 21:11:00 Yuriy Parker MD Jay rson POC GLUCOSE SCREEN 2020-10-18 17:19:00 Darryl Banerjee MD on OSCILLATORY PEP 2020-10-18 13:00:10 Darryl Banerjee MD POC GLUCOSE SCREEN 2020-10-18 09:55:00 Darryl Banerjee MD on PROTHROMBIN TIME 2020-10-18 09:09:00 Yuriy Parker MD And erson APTT 2020-10-18 09:09:00 Yuriy Parker MD Jay rson HEPATIC FUNCTION PANEL 2020-10-18 09:09:00 Yuriy Parker MD COMPLETE BLOOD COUNT W/ 2020-10-18 09:09:00 Yuriy Parker MD INDICES COMPREHENSIVE METABOLIC 2020-10-18 09:09:00 Yuriy Parker MD PANEL MAGNESIUM LEVEL 2020-10-18 09:09:00 Yuriy Parker MD Jay rson PHOSPHORUS LEVEL 2020-10-18 09:09:00 Yuriy Parker MD And erson LACTIC ACID, VENOUS 2020-10-18 09:09:00 Yuriy Parker MD ALBUMIN LEVEL 2020-10-18 09:09:00 Yuriy Parker MD Jay rson ALKALINE PHOSPHATASE 2020-10-18 09:09:00 Yuriy Parker MD ALANINE AMINOTRANSFERASE 2020-10-18 09:09:00 Yuriy Parker MD ASPARTATE AMINOTRANSFERASE 2020-10-18 09:09:00 Carmencita Parker MD TOTAL PROTEIN 2020-10-18 09:09:00 Yuriy Parker MD rson FRACTIONATED BILIRUBIN 2020-10-18 09:09:00 Yuriy Parker MD GLUCOSE LEVEL 2020-10-18 09:09:00 Yuriy Parker MD Jay rson BLOOD UREA NITROGEN 2020-10-18 09:09:00 Yuriy Parker MD ELECTROLYTE PANEL 2020-10-18 09:09:00 Yuriy Parker MD SERUM CREATININE 2020-10-18 09:09:00 Yuriy Parker MD And erson .GLOMERULAR FILTRATION 2020-10-18 09:09:00 Yuriy Parker MD RATE CALCIUM LEVEL TOTAL 2020-10-18 09:09:00 Yuriy Parker MD OSCILLATORY PEP 2020-10-18 07:00:21 Darryl Banerjee MD POC GLUCOSE SCREEN 2020-10-18 01:41:00 Darryl Banerjee MD on OSCILLATORY PEP 2020-10-18 01:00:16 Darryl Banerjee MD TRANSFUSE RED BLOOD CELLS 2020-10-17 21:05:00 Darryl Banerjee MD POC GLUCOSE SCREEN 2020-10-17 19:47:00 Darryl Banerjee MD on OSCILLATORY PEP 2020-10-17 19:00:47 Darryl Banerjee MD HEMODIALYSIS 2020-10-17 17:39:22 Shraddha Nunn MD OSCILLATORY PEP 2020-10-17 16:31:51 Darryl Banerjee MD PREPARE RBC 2020-10-17 13:21:00 Darryl Banerjee MD PRBC PRODUCT READY FOR 2020-10-17 13:21:00 Darryl Banerjee MD MANAGER CORPORATE POC GLUCOSE SCREEN 2020-10-17 12:14:00 Darryl Banerjee MD on HEPATITIS B SURFACE 2020-10-17 09:16:00 Shraddha Nunn MD son ANTIGEN, SERUM PROTHROMBIN TIME 2020-10-17 09:16:00 Yuriy Parker MD And erson APTT 2020-10-17 09:16:00 Yuriy Parker MD Jay rson HEPATIC FUNCTION PANEL 2020-10-17 09:16:00 Yuriy Parker MD COMPLETE BLOOD COUNT W/ 2020-10-17 09:16:00 Yuriy Parker MD INDICES COMPREHENSIVE METABOLIC 2020-10-17 09:16:00 Yuriy Parker MD PANEL MAGNESIUM LEVEL 2020-10-17 09:16:00 Yuriy Parker MD Jay rson PHOSPHORUS LEVEL 2020-10-17 09:16:00 Yuriy Parker MD And erson LACTIC ACID, VENOUS 2020-10-17 09:16:00 Yuriy Parker MD TYPE AND SCREEN 2020-10-17 09:16:00 Yuriy Parker MD Jay rson ALBUMIN LEVEL 2020-10-17 09:16:00 Yuriy Parker MD Jay rson ALKALINE PHOSPHATASE 2020-10-17 09:16:00 Yuriy Parker MD ALANINE AMINOTRANSFERASE 2020-10-17 09:16:00 Yuriy Parker MD ASPARTATE AMINOTRANSFERASE 2020-10-17 09:16:00 Carmencita Parker MD TOTAL PROTEIN 2020-10-17 09:16:00 Yuriy Parker MD Jay rson FRACTIONATED BILIRUBIN 2020-10-17 09:16:00 Yuriy Parker MD GLUCOSE LEVEL 2020-10-17 09:16:00 Yuriy Parker MD Jay rson BLOOD UREA NITROGEN 2020-10-17 09:16:00 Yuriy Parker MD ELECTROLYTE PANEL 2020-10-17 09:16:00 Yuriy Parker MD SERUM CREATININE 2020-10-17 09:16:00 Yuriy Parker MD And erson .GLOMERULAR FILTRATION 2020-10-17 09:16:00 Yuriy Parker MD RATE CALCIUM LEVEL TOTAL 2020-10-17 09:16:00 Yuriy Parker MD ABORH 2020-10-17 09:16:00 Yuriy Parker MD Jay rson ANTIBODY SCREEN 2020-10-17 09:16:00 Yuriy Parker MD Jay rson HEPATITIS B SURFACE AG 2020-10-17 09:16:00 Jose Carlos Burch MDson W/CONFIRM TMP INTERPRETATION 2020-10-17 09:16:00 Yuriy Parker MD nderson ANTIBODY SCREEN NEGATIVE CLOT EXPIRATION DATE 2020-10-17 09:16:00 Yuriy Parker MD TMP CROSSMATCH 2020-10-17 09:16:00 Yuriy Parker MD Jay rson INTERPRETATION POC GLUCOSE SCREEN 2020-10-17 05:59:00 BanerjeeDarryl betancourt MD Herman on POC GLUCOSE SCREEN 2020-10-16 23:06:00 Darryl Banerjee MD Herman on POC GLUCOSE SCREEN 2020-10-16 18:39:00 BanerjeeDarryl betancourt MD Herman on POC GLUCOSE SCREEN 2020-10-16 11:19:00 Darryl Banerjee MD Herman on PROTHROMBIN TIME 2020-10-16 09:10:00 Yuriy Parker MD And erson APTT 2020-10-16 09:10:00 Yuriy Parker MD Jay rson HEPATIC FUNCTION PANEL 2020-10-16 09:10:00 Yuriy Parker MD COMPLETE BLOOD COUNT W/ 2020-10-16 09:10:00 Yuriy Parker MD INDICES COMPREHENSIVE METABOLIC 2020-10-16 09:10:00 Yuriy Parker MD PANEL MAGNESIUM LEVEL 2020-10-16 09:10:00 Yuriy Parker MD Jay rson PHOSPHORUS LEVEL 2020-10-16 09:10:00 Yuriy Parker MD And erson LACTIC ACID, VENOUS 2020-10-16 09:10:00 Yuriy Parker MD ALBUMIN LEVEL 2020-10-16 09:10:00 Yuriy Parker MD Jay rson ALKALINE PHOSPHATASE 2020-10-16 09:10:00 Yuriy Parker MD ALANINE AMINOTRANSFERASE 2020-10-16 09:10:00 Yuriy Parker MD ASPARTATE AMINOTRANSFERASE 2020-10-16 09:10:00 Carmencita Parker MD TOTAL PROTEIN 2020-10-16 09:10:00 Yuriy Parker MD Jay rson FRACTIONATED BILIRUBIN 2020-10-16 09:10:00 Yuriy Parker MD GLUCOSE LEVEL 2020-10-16 09:10:00 Yuriy Parker MD Jay rson BLOOD UREA NITROGEN 2020-10-16 09:10:00 Yuriy aPrker MD ELECTROLYTE PANEL 2020-10-16 09:10:00 Yuriy Parker MDson SERUM CREATININE 2020-10-16 09:10:00 Yuriy Parker MD And erson .GLOMERULAR FILTRATION 2020-10-16 09:10:00 Yuriy Parker MD RATE CALCIUM LEVEL TOTAL 2020-10-16 09:10:00 Yuriy Parker MD POC GLUCOSE SCREEN 2020-10-16 05:12:00 Darryl Banerjee MD on POC GLUCOSE SCREEN 2020-10-15 23:20:00 Darryl Banerjee MD on POC GLUCOSE SCREEN 2020-10-15 17:52:00 Darryl Banerjee MD on URINALYSIS MICROSCOPIC 2020-10-15 16:58:00 Shraddha Nunn MD URINALYSIS WITH 2020-10-15 16:58:00 Darryl Banerjee MD MICROSCOPIC IF INDICATED XR CHEST 1 VW PORTABLE 2020-10-15 15:49:03 Mari Lovell MD POC GLUCOSE SCREEN 2020-10-15 11:26:00 Darryl Banerjee MD on HEPATITIS B SURFACE 2020-10-15 09:44:00 Shraddha Nunn MD Dereck son ANTIGEN, SERUM PROTHROMBIN TIME 2020-10-15 09:44:00 Yuriy Parker MD And erson APTT 2020-10-15 09:44:00 Yuriy Parker MD Jay rson HEPATIC FUNCTION PANEL 2020-10-15 09:44:00 Yuriy Parker MD COMPLETE BLOOD COUNT W/ 2020-10-15 09:44:00 Yuriy Parker MD INDICES COMPREHENSIVE METABOLIC 2020-10-15 09:44:00 Yuriy Parker MD PANEL MAGNESIUM LEVEL 2020-10-15 09:44:00 Yuriy Parker MD Jay rson PHOSPHORUS LEVEL 2020-10-15 09:44:00 Yuriy Parker MD And erson LACTIC ACID, VENOUS 2020-10-15 09:44:00 Yuriy Parker MD ALBUMIN LEVEL 2020-10-15 09:44:00 Yuriy Parker MD Jay rson ALKALINE PHOSPHATASE 2020-10-15 09:44:00 Yuriy Parker MD ALANINE AMINOTRANSFERASE 2020-10-15 09:44:00 Yuriy Parker MD ASPARTATE AMINOTRANSFERASE 2020-10-15 09:44:00 Carmencita Parker MD TOTAL PROTEIN 2020-10-15 09:44:00 Yuriy Parker MD Jay rson FRACTIONATED BILIRUBIN 2020-10-15 09:44:00 Yuriy Parker MD GLUCOSE LEVEL 2020-10-15 09:44:00 Yuriy Parker MD Jay rson BLOOD UREA NITROGEN 2020-10-15 09:44:00 Yuriy Parker MD ELECTROLYTE PANEL 2020-10-15 09:44:00 Yuriy Parker MD SERUM CREATININE 2020-10-15 09:44:00 Yuriy Parker MD And erson .GLOMERULAR FILTRATION 2020-10-15 09:44:00 Yuriy Parker MD RATE CALCIUM LEVEL TOTAL 2020-10-15 09:44:00 Yuriy Parker MD HEPATITIS B SURFACE AG 2020-10-15 09:44:00 Jose Carlos Burch MD W/CONFIRM POC GLUCOSE SCREEN 2020-10-15 04:42:00 Darryl Banerjee MD on EKG, 12-LEAD (PORTABLE) 2020-10-15 00:00:00 Mari Lovell MD POC GLUCOSE SCREEN 2020-10-14 23:03:00 Darryl Banerjee MD on TRANSFUSE RED BLOOD CELLS 2020-10-14 20:15:00 Adolfo Portillo MD POC GLUCOSE SCREEN 2020-10-14 11:48:00 Darryl Banerjee MD on POC GLUCOSE SCREEN 2020-10-14 11:28:00 Darryl Banerjee MD on PREPARE RBC 2020-10-14 10:07:00 Adolfo Portillo MD on PRBC PRODUCT READY FOR 2020-10-14 10:07:00 Darryl Banejree MD MANAGER CORPORATE PROTHROMBIN TIME 2020-10-14 09:11:00 Yuriy Parker MD And erson APTT 2020-10-14 09:11:00 Yuriy Parker MD Jay rson HEPATIC FUNCTION PANEL 2020-10-14 09:11:00 Yuriy Parker MD COMPLETE BLOOD COUNT W/ 2020-10-14 09:11:00 Yuriy Parker MD INDICES COMPREHENSIVE METABOLIC 2020-10-14 09:11:00 Yuriy Parker MD PANEL MAGNESIUM LEVEL 2020-10-14 09:11:00 Yuriy Parker MD Jay rson PHOSPHORUS LEVEL 2020-10-14 09:11:00 Yuriy Parker MD And erson LACTIC ACID, VENOUS 2020-10-14 09:11:00 Yuriy Parker MD ALBUMIN LEVEL 2020-10-14 09:11:00 Yuriy Parker MD Jay rson ALKALINE PHOSPHATASE 2020-10-14 09:11:00 Yuriy Parker MD ALANINE AMINOTRANSFERASE 2020-10-14 09:11:00 Yuriy Parker MD ASPARTATE AMINOTRANSFERASE 2020-10-14 09:11:00 Carmencita Parker MD TOTAL PROTEIN 2020-10-14 09:11:00 Yuriy Parker MD Jay rson FRACTIONATED BILIRUBIN 2020-10-14 09:11:00 Yuriy Parker MD GLUCOSE LEVEL 2020-10-14 09:11:00 Yuriy Parker MD Jay rson BLOOD UREA NITROGEN 2020-10-14 09:11:00 Yuriy Parker MD ELECTROLYTE PANEL 2020-10-14 09:11:00 Yuriy Parker MD derson SERUM CREATININE 2020-10-14 09:11:00 Yuriy Parker MD And erson .GLOMERULAR FILTRATION 2020-10-14 09:11:00 Yuriy Parker MD RATE CALCIUM LEVEL TOTAL 2020-10-14 09:11:00 Yuriy Parker MD ABORH 2020-10-14 09:11:00 Yuriy Parker MD Jay rson ANTIBODY SCREEN 2020-10-14 09:11:00 Yuriy Parker MD Jay rson TMP INTERPRETATION 2020-10-14 09:11:00 Yuriy Parker MD nderson ANTIBODY SCREEN NEGATIVE CLOT EXPIRATION DATE 2020-10-14 09:11:00 Yuriy Parker MD POC GLUCOSE SCREEN 2020-10-14 05:30:00 Darryl Banerjee MD on POC GLUCOSE SCREEN 2020-10-13 22:56:00 Darryl Banerjee MD Herman on POC GLUCOSE SCREEN 2020-10-13 17:18:00 Darryl Banerjee MD Herman on COVID-19 (SARS-COV-2) 2020-10-13 16:11:00 Darryl Banerjee MD And erson PCR-ASYMPTOMATIC MC URINE CULTURE 2020-10-13 13:54:00 Shraddha Nunn MD POC GLUCOSE SCREEN 2020-10-13 11:13:00 Darryl Banerjee MD on PROTHROMBIN TIME 2020-10-13 07:21:00 Yuriy Parker MD And erson APTT 2020-10-13 07:21:00 Yuriy Parker MD Jay rson HEPATIC FUNCTION PANEL 2020-10-13 07:21:00 Yuriy Parker MD COMPLETE BLOOD COUNT W/ 2020-10-13 07:21:00 Yuriy Parker MD INDICES COMPREHENSIVE METABOLIC 2020-10-13 07:21:00 Yuriy Parker MD PANEL MAGNESIUM LEVEL 2020-10-13 07:21:00 Yuriy Parker MD Jay rson PHOSPHORUS LEVEL 2020-10-13 07:21:00 Yuriy Parker MD And erson LACTIC ACID, VENOUS 2020-10-13 07:21:00 Yuriy Parker MD ALBUMIN LEVEL 2020-10-13 07:21:00 Chano Willams MD ALKALINE PHOSPHATASE 2020-10-13 07:21:00 Chano Willams MD Jayelliott duke ALANINE AMINOTRANSFERASE 2020-10-13 07:21:00 Chano Willams MD ASPARTATE AMINOTRANSFERASE 2020-10-13 07:21:00 Chano Willams TOTAL PROTEIN 2020-10-13 07:21:00 Chano Willams MD FRACTIONATED BILIRUBIN 2020-10-13 07:21:00 Chano Willams MD derson GLUCOSE LEVEL 2020-10-13 07:21:00 Robyn Priest MD BLOOD UREA NITROGEN 2020-10-13 07:21:00 Robyn Priest MD Jayelliott duke ELECTROLYTE PANEL 2020-10-13 07:21:00 Robyn Priest MD on SERUM CREATININE 2020-10-13 07:21:00 Robyn Priest MDo n .GLOMERULAR FILTRATION 2020-10-13 07:21:00 Robyn Priest MD ndersaldo RATE CALCIUM LEVEL TOTAL 2020-10-13 07:21:00 Robyn Priest MD Jay rsaldo XR CHEST 1 VW PORTABLE 2020-10-13 07:17:52 Yuriy Parker MD POC GLUCOSE SCREEN 2020-10-13 04:57:00 Darryl Banerjee MD on XR ABDOMEN 1 VW PORTABLE 2020-10-13 03:29:00 Kevin Hernandez MD POC GLUCOSE SCREEN 2020-10-12 22:53:00 Alba Puga MD POC GLUCOSE SCREEN 2020-10-12 16:45:00 Alba Puga MD LACTIC ACID, VENOUS 2020-10-12 13:24:00 Chano Willams MD Dereck son POC GLUCOSE SCREEN 2020-10-12 10:59:00 Alba Puga MD ARTERIAL BLOOD GAS 2020-10-12 09:48:00 Kevin Hernandez MD on XR CHEST 1 VW PORTABLE 2020-10-12 06:38:14 Yuriy Parker MD LACTIC ACID, VENOUS 2020-10-12 06:28:00 Chano Willams MD Dereck julio PROTHROMBIN TIME 2020-10-12 06:28:00 Yuriy Parker MD And erson APTT 2020-10-12 06:28:00 Yuriy Parker MD Jay rson HEPATIC FUNCTION PANEL 2020-10-12 06:28:00 Yuriy Parker MD COMPLETE BLOOD COUNT W/ 2020-10-12 06:28:00 Yuriy Parker MD INDICES VANCOMYCIN LEVEL RANDOM 2020-10-12 06:28:00 Gerardo Krishnan MD A nderson COMPREHENSIVE METABOLIC 2020-10-12 06:28:00 Yuriy Parker MD PANEL MAGNESIUM LEVEL 2020-10-12 06:28:00 Yuriy Parker MD Jay rson PHOSPHORUS LEVEL 2020-10-12 06:28:00 Yuriy Parker MD And erson ALBUMIN LEVEL 2020-10-12 06:28:00 Chano Willams MD ALKALINE PHOSPHATASE 2020-10-12 06:28:00 Chano Willams MD Jay rsaldo ALANINE AMINOTRANSFERASE 2020-10-12 06:28:00 Chano Willams MD ASPARTATE AMINOTRANSFERASE 2020-10-12 06:28:00 Chano Willams TOTAL PROTEIN 2020-10-12 06:28:00 Chano Willams MD FRACTIONATED BILIRUBIN 2020-10-12 06:28:00 Chano Willams MD GLUCOSE LEVEL 2020-10-12 06:28:00 Robyn Priest MD BLOOD UREA NITROGEN 2020-10-12 06:28:00 Robyn Priest MD Jay rson ELECTROLYTE PANEL 2020-10-12 06:28:00 Robyn Priest MD on SERUM CREATININE 2020-10-12 06:28:00 Robyn Priest MD Anderso n .GLOMERULAR FILTRATION 2020-10-12 06:28:00 Robyn Priest MD nderson RATE CALCIUM LEVEL TOTAL 2020-10-12 06:28:00 Robyn Priest MD Jay rson POC GLUCOSE SCREEN 2020-10-12 05:23:00 Alba Puga MD TRANSFUSE RED BLOOD CELLS 2020-10-12 01:40:00 Kiara Tijerina MD LACTIC ACID, VENOUS 2020-10-11 23:06:00 Chano Willams MD Dereck son POC GLUCOSE SCREEN 2020-10-11 22:21:00 Alba Puga MD PREPARE RBC 2020-10-11 20:51:00 Kiara Tijerina MD on PRBC PRODUCT READY FOR 2020-10-11 20:51:00 Alba Puga MANAGER CORPORATE COMPLETE BLOOD COUNT W/ 2020-10-11 20:28:00 Kiara Tijerina DIFFERENTIAL URINALYSIS WITH 2020-10-11 20:28:00 Shraddha Nunn MD MICROSCOPIC IF INDICATED NT PRO BNP 2020-10-11 20:28:00 Alba Puga MD Dereck son Results CBC 2020-10-11 20:28:00 Kiara Tijerina MD on MANUAL DIFFERENTIAL 2020-10-11 20:28:00 Kiara Tijerina MD URINALYSIS MICROSCOPIC 2020-10-11 20:28:00 Timothy Torres MD POC GLUCOSE SCREEN 2020-10-11 16:45:00 Alba Puga MD LACTIC ACID, VENOUS 2020-10-11 14:11:00 Chano Willams MD Dereck son TYPE AND SCREEN 2020-10-11 11:31:00 Yuriy Parker MD Jay rson ABORH 2020-10-11 11:31:00 Karyn Andre MD Dereck son ANTIBODY SCREEN 2020-10-11 11:31:00 Karyn Andre MD Dereck son CLOT EXPIRATION DATE 2020-10-11 11:31:00 Karyn Andre MD TMP INTERPRETATION 2020-10-11 11:31:00 Karyn Andre MD ANTIBODY SCREEN NEGATIVE TMP CROSSMATCH 2020-10-11 11:31:00 Karyn Andre MD Dereck son INTERPRETATION POC GLUCOSE SCREEN 2020-10-11 10:30:00 Alba Puga MD XR CHEST 1 VW PORTABLE 2020-10-11 06:30:57 Yuriy Parker MD LACTIC ACID, VENOUS 2020-10-11 06:29:00 Chano Willams MD Dereck son PROTHROMBIN TIME 2020-10-11 06:29:00 Yuriy Parker MD And erson APTT 2020-10-11 06:29:00 Yuriy Parker MD Jay rson HEPATIC FUNCTION PANEL 2020-10-11 06:29:00 Yuriy Parker MD COMPLETE BLOOD COUNT W/ 2020-10-11 06:29:00 Yuriy Parker MD INDICES COMPREHENSIVE METABOLIC 2020-10-11 06:29:00 Yuriy Parker MD PANEL MAGNESIUM LEVEL 2020-10-11 06:29:00 Yuriy Parker MD Jay rson PHOSPHORUS LEVEL 2020-10-11 06:29:00 Yuriy Parker MD And erson ALBUMIN LEVEL 2020-10-11 06:29:00 Chano Willams MD ALKALINE PHOSPHATASE 2020-10-11 06:29:00 Chano Willams MD Jay rson ALANINE AMINOTRANSFERASE 2020-10-11 06:29:00 Chano Willams MD ASPARTATE AMINOTRANSFERASE 2020-10-11 06:29:00 Chano Willams TOTAL PROTEIN 2020-10-11 06:29:00 Chano Willams MD FRACTIONATED BILIRUBIN 2020-10-11 06:29:00 Chano Willams MD An derson GLUCOSE LEVEL 2020-10-11 06:29:00 Robyn Priest MD BLOOD UREA NITROGEN 2020-10-11 06:29:00 Robyn Priest MD Jay rson ELECTROLYTE PANEL 2020-10-11 06:29:00 Robyn Priest MD Herman on SERUM CREATININE 2020-10-11 06:29:00 Robyn Priest MD Anderso n .GLOMERULAR FILTRATION 2020-10-11 06:29:00 Robyn Priest MD nderson RATE CALCIUM LEVEL TOTAL 2020-10-11 06:29:00 Robyn Priest MD Jay rson ARTERIAL BLOOD GAS 2020-10-11 06:29:00 Bailey Marshall MD Jay rson POC GLUCOSE SCREEN 2020-10-11 04:48:00 Alba Puga MD POC GLUCOSE SCREEN 2020-10-10 23:30:00 Alba Puga MD An harpal XR CHEST 1 VW POST IMPLANT 2020-10-10 20:06:00 Alba Puga MD POC GLUCOSE SCREEN 2020-10-10 16:51:00 Alba Puga MD An harpal LACTIC ACID, VENOUS 2020-10-10 15:01:00 Chano Willams MD Dereck son POC GLUCOSE SCREEN 2020-10-10 10:59:00 Alba Puga MD An harpal XR CHEST 1 VW PORTABLE 2020-10-10 06:41:13 Yuriy Parker MD GENERAL LABORATORY ADD ON 2020-10-10 06:37:00 Robyn Priest TEST PROTHROMBIN TIME 2020-10-10 06:31:00 Yuriy Parker MD And erson APTT 2020-10-10 06:31:00 Yuriy Parker MD Jay rsaldo HEPATIC FUNCTION PANEL 2020-10-10 06:31:00 Yuriy Parker MD COMPLETE BLOOD COUNT W/ 2020-10-10 06:31:00 Yuriy Parker MD INDICES ALBUMIN LEVEL 2020-10-10 06:31:00 Chano Willams MD ALKALINE PHOSPHATASE 2020-10-10 06:31:00 Chano Willams MD ALANINE AMINOTRANSFERASE 2020-10-10 06:31:00 Chano Willams MD ASPARTATE AMINOTRANSFERASE 2020-10-10 06:31:00 Chano Willams TOTAL PROTEIN 2020-10-10 06:31:00 Chano Willams MD FRACTIONATED BILIRUBIN 2020-10-10 06:31:00 Chano Willams MD PHOSPHORUS LEVEL 2020-10-10 06:31:00 Chano Willams MD MAGNESIUM LEVEL 2020-10-10 06:31:00 Chano Willams MD GLUCOSE LEVEL 2020-10-10 06:31:00 Chano Willams MD BLOOD UREA NITROGEN 2020-10-10 06:31:00 Chano Willams MD ELECTROLYTE PANEL 2020-10-10 06:31:00 Chano Willams MD geremias SERUM CREATININE 2020-10-10 06:31:00 Chano Willams MD .GLOMERULAR FILTRATION 2020-10-10 06:31:00 Chano Willams MD RATE CALCIUM LEVEL TOTAL 2020-10-10 06:31:00 Chano Willams MD LACTIC ACID, VENOUS 2020-10-10 06:29:00 Chano Willams MD POC GLUCOSE SCREEN 2020-10-10 04:47:00 Alba Puga MD POC GLUCOSE SCREEN 2020-10-09 22:49:00 Alba Puga MD POC GLUCOSE SCREEN 2020-10-09 16:12:00 Alba Puga MD XR ABDOMEN 1 VW PORTABLE 2020-10-09 14:33:45 Kiara Tijerina MD LACTIC ACID, VENOUS 2020-10-09 13:38:00 Chano Willams MD BASIC METABOLIC PANEL, 2020-10-09 13:38:00 Beau Reina MD CALCIUM IONIZED APTT 2020-10-09 13:38:00 Beau Reina MD PROTHROMBIN TIME 2020-10-09 13:38:00 Beau Reina MD MAGNESIUM LEVEL 2020-10-09 13:38:00 Beau Reina MD PHOSPHORUS LEVEL 2020-10-09 13:38:00 Beau Reina MD GLUCOSE LEVEL 2020-10-09 13:38:00 Beau Reina MD BLOOD UREA NITROGEN 2020-10-09 13:38:00 Beau Reina MD Dereck kim ELECTROLYTE PANEL 2020-10-09 13:38:00 Beau Reina MD geremias SERUM CREATININE 2020-10-09 13:38:00 Beau Reina MD .GLOMERULAR FILTRATION 2020-10-09 13:38:00 Beau Reina MD RATE CALCIUM IONIZED, VENOUS 2020-10-09 13:38:00 Beau Reina MD nderson POC GLUCOSE SCREEN 2020-10-09 10:28:00 Alba Puga MD TRANSFUSE RED BLOOD CELLS 2020-10-09 10:15:00 Robyn Priest PREPARE RBC 2020-10-09 08:56:00 Robyn Priest MD PRBC PRODUCT READY FOR 2020-10-09 08:56:00 Alba Puga MANAGER CORPORATE XR CHEST 1 VW PORTABLE 2020-10-09 08:24:00 Yuriy Parker MD LACTIC ACID, VENOUS 2020-10-09 07:36:00 Chano Willams MD HEPATITIS B SURFACE 2020-10-09 07:36:00 Shraddha Nunn MD Dereckedel kim ANTIGEN, SERUM PROTHROMBIN TIME 2020-10-09 07:36:00 Yuriy aPrker MD And erson APTT 2020-10-09 07:36:00 Yuriy Parker MD Jay rson HEPATIC FUNCTION PANEL 2020-10-09 07:36:00 Yuriy Parker MD COMPLETE BLOOD COUNT W/ 2020-10-09 07:36:00 Yuriy Parker MD INDICES VANCOMYCIN LEVEL RANDOM 2020-10-09 07:36:00 Sudheer Wilson MD ALBUMIN LEVEL 2020-10-09 07:36:00 Chano Willams MD ALKALINE PHOSPHATASE 2020-10-09 07:36:00 Chano Willams MD ALANINE AMINOTRANSFERASE 2020-10-09 07:36:00 Chano Willams MD ASPARTATE AMINOTRANSFERASE 2020-10-09 07:36:00 Chano Willams TOTAL PROTEIN 2020-10-09 07:36:00 Chano Willams MD FRACTIONATED BILIRUBIN 2020-10-09 07:36:00 Chano Willams MD HEPATITIS B SURFACE AG 2020-10-09 07:36:00 Cory Hickman MD W/CONFIRM POC GLUCOSE SCREEN 2020-10-09 04:28:00 Alba Puga MD POC GLUCOSE SCREEN 2020 22:30:00 Alba Puga MD LACTIC ACID, VENOUS 2020 20:18:00 Chano Willams MD MRSA SCREENING CULTURE 2020 17:27:00 Ellis Cooper MD POC GLUCOSE SCREEN 2020 16:26:00 Alba Puga MD BLOODCULTURE 2020 15:21:00 Beau Reina MD URINE CULTURE 2020 15:21:00 Beau Reina MD BLOODCULTURE 2020 15:21:00 Beau Reina MD TYPE AND SCREEN 2020 13:19:00 Yuriy Parker MD LACTIC ACID, VENOUS 2020 13:19:00 Chano Willams MD son BASIC METABOLIC PANEL, 2020 13:19:00 Shraddha Nunn MD CALCIUM IONIZED CALCIUM LEVEL TOTAL 2020 13:19:00 Shraddha Nunn MD PHOSPHORUS LEVEL 2020 13:19:00 Shraddha Nunn MD MAGNESIUM LEVEL 2020 13:19:00 Shraddha Nunn MD ARTERIAL BLOOD GAS 2020 13:19:00 Shraddha Nunn MD on ABORH 2020 13:19:00 Karyn Andre MD ANTIBODY SCREEN 2020 13:19:00 Karyn Andreer julio CALCIUM IONIZED, VENOUS 2020 13:19:00 Rigo Orantes MD GLUCOSE LEVEL 2020 13:19:00 Rigo Orantes MD Jay rson BLOOD UREA NITROGEN 2020 13:19:00 Rigo Orantes MD ELECTROLYTE PANEL 2020 13:19:00 Rigo Orantes MD SERUM CREATININE 2020 13:19:00 Rigo Orantes MD And erson .GLOMERULAR FILTRATION 2020 13:19:00 Rigo Orantes MD RATE COMPLETE BLOOD COUNT W/ 2020 13:19:00 Beau Reina MD nderson DIFFERENTIAL Results CBC 2020 13:19:00 Beau Reina MD MANUAL DIFFERENTIAL 2020 13:19:00 Beau Reina MD [facility] TMP INTERPRETATION 2020 13:19:00 Karyn Andre MD ANTIBODY SCREEN NEGATIVE CLOT EXPIRATION DATE 2020 13:19:00 Karyn Andre MD TMP CROSSMATCH 2020 13:19:00 Karyn Andre MD [facility] INTERPRETATION POC GLUCOSE SCREEN 2020 11:00:00 Alba Puga MD XR CHEST 1 VW PORTABLE 2020 09:07:05 Yuriy Parker MD POC GLUCOSE SCREEN 2020 07:33:00 Alba Puga MD LACTIC ACID, VENOUS 2020 05:52:00 Chano Willams MD BASIC METABOLIC PANEL, 2020 05:52:00 Shraddha Nunn MD CALCIUM IONIZED CALCIUM LEVEL TOTAL 2020 05:52:00 Shraddha Nunn MD PHOSPHORUS LEVEL 2020 05:52:00 Shraddha Nunn MD MAGNESIUM LEVEL 2020 05:52:00 Shraddha Nunn MD ARTERIAL BLOOD GAS 2020 05:52:00 Shraddha Nunn MD Herman on PROTHROMBIN TIME 2020 05:52:00 Yuriy Parker MD And erson APTT 2020 05:52:00 Yuriy Parker MD Jay rson HEPATIC FUNCTION PANEL 2020 05:52:00 Yuriy Parker MD COMPLETE BLOOD COUNT W/ 2020 05:52:00 Yuriy Parker MD INDICES CALCIUM IONIZED, VENOUS 2020 05:52:00 Rigo Orantes MD GLUCOSE LEVEL 2020 05:52:00 Rigo Orantes MD Jay rson BLOOD UREA NITROGEN 2020 05:52:00 Rigo Orantes MD ELECTROLYTE PANEL 2020 05:52:00 Rigo Orantes MD SERUM CREATININE 2020 05:52:00 Rigo Orantes MD And erson .GLOMERULAR FILTRATION 2020 05:52:00 Rigo Orantes MD RATE ALBUMIN LEVEL 2020 05:52:00 Chano Willams MD ALKALINE PHOSPHATASE 2020 05:52:00 Chano Willams MD Jay rsaldo ALANINE AMINOTRANSFERASE 2020 05:52:00 Chano Willams MD ASPARTATE AMINOTRANSFERASE 2020 05:52:00 Chano Willams TOTAL PROTEIN 2020 05:52:00 Chano Willams MD FRACTIONATED BILIRUBIN 2020 05:52:00 Chano Willams MD POC GLUCOSE SCREEN 2020 04:57:00 Alba Puga MD POC GLUCOSE SCREEN 2020 03:20:00 Alba Puga MD POC GLUCOSE SCREEN 2020 02:13:00 Alba Puga MDson POC GLUCOSE SCREEN 2020 01:05:00 Alba Puga MD derson POC GLUCOSE SCREEN 2020-10-07 23:26:00 Alba Puga MD POC GLUCOSE SCREEN 2020-10-07 22:20:00 Alba Puga MD LACTIC ACID, VENOUS 2020-10-07 20:37:00 Chano Willams MD BASIC METABOLIC PANEL, 2020-10-07 20:37:00 Shraddha Nunn MD CALCIUM IONIZED CALCIUM LEVEL TOTAL 2020-10-07 20:37:00 Shraddha Nunn MD [facility] PHOSPHORUS LEVEL 2020-10-07 20:37:00 Shraddha Nunn MD MAGNESIUM LEVEL 2020-10-07 20:37:00 Shraddha Nunn MD ARTERIAL BLOOD GAS 2020-10-07 20:37:00 Shraddha Nunn MD on CALCIUM IONIZED, VENOUS 2020-10-07 20:37:00 Rigo Orantes MD GLUCOSE LEVEL 2020-10-07 20:37:00 Rigo Orantes MD Jay rson BLOOD UREA NITROGEN 2020-10-07 20:37:00 Rigo Orantes MD ELECTROLYTE PANEL 2020-10-07 20:37:00 Rigo Orantes MD SERUM CREATININE 2020-10-07 20:37:00 Rigo Orantes MD And erson .GLOMERULAR FILTRATION 2020-10-07 20:37:00 Rigo Orantes MD RATE POC GLUCOSE SCREEN 2020-10-07 20:24:00 Alba Puga MD POC GLUCOSE SCREEN 2020-10-07 19:40:00 Alba Puga MD POC GLUCOSE SCREEN 2020-10-07 18:34:00 Alba Puga MD POC GLUCOSE SCREEN 2020-10-07 16:24:00 Alba Puga MD OSCILLATORY PEP 2020-10-07 15:47:02 Alba Puga MD POC GLUCOSE SCREEN 2020-10-07 14:23:00 Alba Puga MD LACTIC ACID, VENOUS 2020-10-07 13:35:00 Chano Willamser julio BASIC METABOLIC PANEL, 2020-10-07 13:35:00 Shraddha Nunn MD CALCIUM IONIZED CALCIUM LEVEL TOTAL 2020-10-07 13:35:00 Shraddha Nunn MD PHOSPHORUS LEVEL 2020-10-07 13:35:00 Shraddha Nunn MD MAGNESIUM LEVEL 2020-10-07 13:35:00 Shraddha Nunn MD ARTERIAL BLOOD GAS 2020-10-07 13:35:00 Shraddha Nunn MD on CALCIUM IONIZED, VENOUS 2020-10-07 13:35:00 Rigo Orantes MD GLUCOSE LEVEL 2020-10-07 13:35:00 Rigo Orantes MD Jay rson BLOOD UREA NITROGEN 2020-10-07 13:35:00 Rigo Orantes MD ELECTROLYTE PANEL 2020-10-07 13:35:00 Rigo Orantes MD SERUM CREATININE 2020-10-07 13:35:00 Rigo Orantes MD And erson .GLOMERULAR FILTRATION 2020-10-07 13:35:00 Rigo Orantes MD RATE POC GLUCOSE SCREEN 2020-10-07 12:18:00 Alba Puga MD XR CHEST 1 VW PORTABLE 2020-10-07 10:53:00 Yuriy Parker MD POC GLUCOSE SCREEN 2020-10-07 10:41:00 Alba Puga MD POC GLUCOSE SCREEN 2020-10-07 09:23:00 Alba Puga MD POC GLUCOSE SCREEN 2020-10-07 08:41:00 Alba Puga MD POC GLUCOSE SCREEN 2020-10-07 07:21:00 Alba Puga MD LACTIC ACID, VENOUS 2020-10-07 05:53:00 Chano Willams MD BASIC METABOLIC PANEL, 2020-10-07 05:53:00 Shraddha Nunn MD CALCIUM IONIZED CALCIUM LEVEL TOTAL 2020-10-07 05:53:00 Shraddha Nunn MD PHOSPHORUS LEVEL 2020-10-07 05:53:00 Shraddha Nunn MD MAGNESIUM LEVEL 2020-10-07 05:53:00 Shraddha Nunn MD ARTERIAL BLOOD GAS 2020-10-07 05:53:00 Shraddha Nunn MD Herman on PROTHROMBIN TIME 2020-10-07 05:53:00 Yuriy Parker MD And erson APTT 2020-10-07 05:53:00 Yuriy Parker MD Jay rson HEPATIC FUNCTION PANEL 2020-10-07 05:53:00 Yuriy Parker MD COMPLETE BLOOD COUNT W/ 2020-10-07 05:53:00 Yuriy Parker MD INDICES CALCIUM IONIZED, VENOUS 2020-10-07 05:53:00 Rigo Orantes MD GLUCOSE LEVEL 2020-10-07 05:53:00 Rigo Orantes MD Jay rson BLOOD UREA NITROGEN 2020-10-07 05:53:00 Rigo Orantes MD ELECTROLYTE PANEL 2020-10-07 05:53:00 Rigo Orantes MD SERUM CREATININE 2020-10-07 05:53:00 Rigo Orantes MD And erson .GLOMERULAR FILTRATION 2020-10-07 05:53:00 Rigo Orantes MD RATE ALBUMIN LEVEL 2020-10-07 05:53:00 Chano Willams MD ALKALINE PHOSPHATASE 2020-10-07 05:53:00 Chano Willams MD Jay rsaldo ALANINE AMINOTRANSFERASE 2020-10-07 05:53:00 Chano Willams MD ASPARTATE AMINOTRANSFERASE 2020-10-07 05:53:00 Chano Willams TOTAL PROTEIN 2020-10-07 05:53:00 Chano Willams MD FRACTIONATED BILIRUBIN 2020-10-07 05:53:00 Chano Willams MD POC GLUCOSE SCREEN 2020-10-07 04:56:00 Alba Puga MD POC GLUCOSE SCREEN 2020-10-07 03:04:00 Alba Puga MD POC GLUCOSE SCREEN 2020-10-07 02:05:00 Alba Puga MD POC GLUCOSE SCREEN 2020-10-07 00:58:00 Alba Puga MD POC GLUCOSE SCREEN 2020-10-06 22:56:00 Alba Puga MD LACTIC ACID, VENOUS 2020-10-06 21:52:00 Chano Willams MD BASIC METABOLIC PANEL, 2020-10-06 21:52:00 Shraddha Nunn MD CALCIUM IONIZED CALCIUM LEVEL TOTAL 2020-10-06 21:52:00 Shraddha Nunn MD PHOSPHORUS LEVEL 2020-10-06 21:52:00 Shraddha Nunn MD MAGNESIUM LEVEL 2020-10-06 21:52:00 Shraddha Nunn MD ARTERIAL BLOOD GAS 2020-10-06 21:52:00 Shraddha Nunn MD on CALCIUM IONIZED, VENOUS 2020-10-06 21:52:00 Rigo Orantes MD GLUCOSE LEVEL 2020-10-06 21:52:00 Rigo Orantes MD Jay rson BLOOD UREA NITROGEN 2020-10-06 21:52:00 Rigo Orantes MD ELECTROLYTE PANEL 2020-10-06 21:52:00 Rigo Orantes MD SERUM CREATININE 2020-10-06 21:52:00 Rigo Orantes MD And erson .GLOMERULAR FILTRATION 2020-10-06 21:52:00 Rigo Orantes MD RATE POC GLUCOSE SCREEN 2020-10-06 21:00:00 Alba Puga MD POC GLUCOSE SCREEN 2020-10-06 19:58:00 Alba Puga MD POC GLUCOSE SCREEN 2020-10-06 19:21:00 Alba Puga MD POC GLUCOSE SCREEN 2020-10-06 17:40:00 Alba Puga MD POC GLUCOSE SCREEN 2020-10-06 16:14:00 Alba Puga MDson COVID-19 (SARS-COV-2) 2020-10-06 15:33:00 Randolph Payne MD And erson PCR-ASYMPTOMATIC MC POC GLUCOSE SCREEN 2020-10-06 14:33:00 Alba Puga MD LACTIC ACID, VENOUS 2020-10-06 13:46:00 Chano Willams MD Dereck julio BASIC METABOLIC PANEL, 2020-10-06 13:46:00 Shraddha Nunn MD CALCIUM IONIZED CALCIUM LEVEL TOTAL 2020-10-06 13:46:00 Shraddha Nunn MD Dereck son PHOSPHORUS LEVEL 2020-10-06 13:46:00 Shraddha Nunn MD MAGNESIUM LEVEL 2020-10-06 13:46:00 Shraddha Nunn MD ARTERIAL BLOOD GAS 2020-10-06 13:46:00 Shraddha Nunn MD on CALCIUM IONIZED, VENOUS 2020-10-06 13:46:00 Rigo Orantes MD GLUCOSE LEVEL 2020-10-06 13:46:00 Rigo Orantes MD Jay rson BLOOD UREA NITROGEN 2020-10-06 13:46:00 Rigo Orantes MD ELECTROLYTE PANEL 2020-10-06 13:46:00 Rigo Orantes MD SERUM CREATININE 2020-10-06 13:46:00 Rigo Orantes MD And erson .GLOMERULAR FILTRATION 2020-10-06 13:46:00 Rigo Orantes MD RATE TRANSFUSE RED BLOOD CELLS 2020-10-06 12:40:00 Migdalia Kruger POC GLUCOSE SCREEN 2020-10-06 12:31:00 Alba Puga MD POC GLUCOSE SCREEN 2020-10-06 10:28:00 Randolph Payne MD on POC GLUCOSE SCREEN 2020-10-06 08:35:00 Randolph Payne MD on XR CHEST 1 VW PORTABLE 2020-10-06 08:17:51 Yuriy Parker MD PREPARE RBC 2020-10-06 08:12:00 Migdalia Kruger MD PRBC PRODUCT READY FOR 2020-10-06 08:12:00 Randolph Payne MD MANAGER CORPORATE POC GLUCOSE SCREEN 2020-10-06 06:34:00 Randolph Payne MD on LACTIC ACID, VENOUS 2020-10-06 06:05:00 Chano Willams MD Dereck son BASIC METABOLIC PANEL, 2020-10-06 06:05:00 Shraddha Nunn MD CALCIUM IONIZED CALCIUM LEVEL TOTAL 2020-10-06 06:05:00 Shraddha Nunn MD PHOSPHORUS LEVEL 2020-10-06 06:05:00 Shraddha Nunn MD MAGNESIUM LEVEL 2020-10-06 06:05:00 Shraddha Nunn MD ARTERIAL BLOOD GAS 2020-10-06 06:05:00 Shraddha Nunn MD on PROTHROMBIN TIME 2020-10-06 06:05:00 Yuriy Parker MD And erson APTT 2020-10-06 06:05:00 Yuriy Parker MD Jay rson HEPATIC FUNCTION PANEL 2020-10-06 06:05:00 Yuriy Parker MD COMPLETE BLOOD COUNT W/ 2020-10-06 06:05:00 Yuriy Parker MD INDICES CALCIUM IONIZED, VENOUS 2020-10-06 06:05:00 Rigo Orantes MD GLUCOSE LEVEL 2020-10-06 06:05:00 Rigo Orantes MD Jay rson BLOOD UREA NITROGEN 2020-10-06 06:05:00 Rigo Orantes MD ELECTROLYTE PANEL 2020-10-06 06:05:00 Rigo Orantes MD SERUM CREATININE 2020-10-06 06:05:00 Rigo Orantes MD And erson .GLOMERULAR FILTRATION 2020-10-06 06:05:00 Rigo Orantes MD RATE ALBUMIN LEVEL 2020-10-06 06:05:00 Chano Willams MD ALKALINE PHOSPHATASE 2020-10-06 06:05:00 Chano Willams MD ALANINE AMINOTRANSFERASE 2020-10-06 06:05:00 Chano Willams MD ASPARTATE AMINOTRANSFERASE 2020-10-06 06:05:00 Chano Willams TOTAL PROTEIN 2020-10-06 06:05:00 Chano Willams MD FRACTIONATED BILIRUBIN 2020-10-06 06:05:00 Chano Willams MD POC GLUCOSE SCREEN 2020-10-06 04:40:00 Randolph Payne MD Herman on POC GLUCOSE SCREEN 2020-10-06 03:36:00 Randolph Payne MD Herman on POC GLUCOSE SCREEN 2020-10-06 02:23:00 Randolph Payne MD Herman on POC GLUCOSE SCREEN 2020-10-06 01:31:00 Randolph Payne MD Herman on POC GLUCOSE SCREEN 2020-10-06 00:09:00 Randolph Payne MD on POC GLUCOSE SCREEN 2020-10-05 23:21:00 Randolph Payne MD Herman on POC GLUCOSE SCREEN 2020-10-05 22:15:00 Randolph Payne MD Herman on LACTIC ACID, VENOUS 2020-10-05 21:09:00 Chano Willams MD Dereck son BASIC METABOLIC PANEL, 2020-10-05 21:09:00 Shraddha Nunn MD CALCIUM IONIZED CALCIUM LEVEL TOTAL 2020-10-05 21:09:00 Shraddha Nunn MD [facility] PHOSPHORUS LEVEL 2020-10-05 21:09:00 Shraddha Nunn MD MAGNESIUM LEVEL 2020-10-05 21:09:00 Shraddha Nunn MD ARTERIAL BLOOD GAS 2020-10-05 21:09:00 Shraddha Nunn MD on CALCIUM IONIZED, VENOUS 2020-10-05 21:09:00 Rigo Orantes MD GLUCOSE LEVEL 2020-10-05 21:09:00 Rigo Orantes MD Jay rson BLOOD UREA NITROGEN 2020-10-05 21:09:00 Rigo Orantes MD ELECTROLYTE PANEL 2020-10-05 21:09:00 Rigo Orantes MD SERUM CREATININE 2020-10-05 21:09:00 Rigo Orantes MD And erson .GLOMERULAR FILTRATION 2020-10-05 21:09:00 Rigo Orantes MD RATE POC GLUCOSE SCREEN 2020-10-05 20:28:00 Randolph Payne MD on POC GLUCOSE SCREEN 2020-10-05 19:20:00 Randolph Payne MD on POC GLUCOSE SCREEN 2020-10-05 18:05:00 Randolph Payne MD on POC GLUCOSE SCREEN 2020-10-05 16:37:00 Randolph Payne MD on LACTIC ACID, VENOUS 2020-10-05 13:48:00 Chano Willams MD Dereck son BASIC METABOLIC PANEL, 2020-10-05 13:48:00 Shraddha Nunn MD CALCIUM IONIZED CALCIUM LEVEL TOTAL 2020-10-05 13:48:00 Shraddha Nunn MD Dereck son PHOSPHORUS LEVEL 2020-10-05 13:48:00 Shraddha Nunn MD Floyd MAGNESIUM LEVEL 2020-10-05 13:48:00 Shraddha Nunn MD ARTERIAL BLOOD GAS 2020-10-05 13:48:00 Shraddha Nunn MD on CALCIUM IONIZED, VENOUS 2020-10-05 13:48:00 Rigo Orantes MD GLUCOSE LEVEL 2020-10-05 13:48:00 Rigo Orantes MD Jay rson BLOOD UREA NITROGEN 2020-10-05 13:48:00 Rigo Orantes MD ELECTROLYTE PANEL 2020-10-05 13:48:00 Rigo Orantes MDson SERUM CREATININE 2020-10-05 13:48:00 Rigo Orantes MD And erson .GLOMERULAR FILTRATION 2020-10-05 13:48:00 Rigo Orantes MD RATE POC GLUCOSE SCREEN 2020-10-05 10:58:00 Randolph Payne MD on BASIC METABOLIC PANEL, 2020-10-05 09:55:00 Bailey Marshall MD CALCIUM IONIZED MAGNESIUM LEVEL 2020-10-05 09:55:00 Bailey Marshall MD Andprabhjoto n PHOSPHORUS LEVEL 2020-10-05 09:55:00 Bailey Marshall MD Herman on GLUCOSE LEVEL 2020-10-05 09:55:00 Bailey Marshall MD Anderso n BLOOD UREA NITROGEN 2020-10-05 09:55:00 Bailey Marshall MD And erson ELECTROLYTE PANEL 2020-10-05 09:55:00 Bailey Marshall MD Dereck son SERUM CREATININE 2020-10-05 09:55:00 Bailey Marshall MD on .GLOMERULAR FILTRATION 2020-10-05 09:55:00 Bailey Marshall MD RATE CALCIUM IONIZED, VENOUS 2020-10-05 09:55:00 Bailey Marshall MD XR CHEST 1 VW PORTABLE 2020-10-05 08:47:48 Yuriy Parker MD TYPE AND SCREEN 2020-10-05 08:40:00 Yuriy Parker MD rson ABORH 2020-10-05 08:40:00 Karyn Andre MD Dereck son ANTIBODY SCREEN 2020-10-05 08:40:00 Karyn Andre MD Dereck son CLOT EXPIRATION DATE 2020-10-05 08:40:00 Karyn Andre MD TMP INTERPRETATION 2020-10-05 08:40:00 Karyn Andre MD derson ANTIBODY SCREEN NEGATIVE TMP CROSSMATCH 2020-10-05 08:40:00 Karyn Andre MD Dereck son INTERPRETATION LACTIC ACID, VENOUS 2020-10-05 06:43:00 Chano Willams MD Dereck son MAGNESIUM LEVEL 2020-10-05 06:43:00 Shraddha Nunn MD ARTERIAL BLOOD GAS 2020-10-05 06:43:00 Shraddha Nunn MD on PROTHROMBIN TIME 2020-10-05 06:43:00 Yuriy Parker MD And erson APTT 2020-10-05 06:43:00 Yuriy Parker MD Jay rson HEPATIC FUNCTION PANEL 2020-10-05 06:43:00 Yuriy Parker MD COMPLETE BLOOD COUNT W/ 2020-10-05 06:43:00 Yuriy Parker MD INDICES ALBUMIN LEVEL 2020-10-05 06:43:00 Chano Willams MD ALKALINE PHOSPHATASE 2020-10-05 06:43:00 Chano Willams MD ALANINE AMINOTRANSFERASE 2020-10-05 06:43:00 Chano Willams MD ASPARTATE AMINOTRANSFERASE 2020-10-05 06:43:00 Chano Willams TOTAL PROTEIN 2020-10-05 06:43:00 Chano Willams MD FRACTIONATED BILIRUBIN 2020-10-05 06:43:00 Chano Willams MD POC GLUCOSE SCREEN 2020-10-05 04:22:00 Randolph Payne MD on POC GLUCOSE SCREEN 2020-10-04 22:35:00 Randolph Payne MD on TRANSFUSE PLATELETS 2020-10-04 22:15:00 Cecelia Ley MDrson TMP EXCEPTION 2020-10-04 21:45:00 Randolph Payne MD LACTIC ACID, VENOUS 2020-10-04 21:24:00 Chano Willams MD Dereck son ARTERIAL BLOOD GAS 2020-10-04 21:24:00 Shraddha Nunn MD on BASIC METABOLIC PANEL, 2020-10-04 21:24:00 Cecelia Ley CALCIUM IONIZED PHOSPHORUS LEVEL 2020-10-04 21:24:00 Cecelia Ley MD Jay rson GLUCOSE LEVEL 2020-10-04 21:24:00 Cecelia Ley MD Dereckbanner BLOOD UREA NITROGEN 2020-10-04 21:24:00 Cecelia Ley MD ELECTROLYTE PANEL 2020-10-04 21:24:00 Cecelia Ley MD And erson SERUM CREATININE 2020-10-04 21:24:00 Cecelia Ley MD Jay rson .GLOMERULAR FILTRATION 2020-10-04 21:24:00 Cecelia Ley RATE CALCIUM IONIZED, VENOUS 2020-10-04 21:24:00 Cecelia Ley MD MAGNESIUM LEVEL 2020-10-04 21:24:00 Cecelia Ley MD Dereck son PREPARE PLATELETS 2020-10-04 19:15:00 Cecelia Ley MD And erson PLT PRODUCT READY FOR PICK 2020-10-04 19:15:00 Randolph Payne UP COMPLETE BLOOD COUNT W/ 2020-10-04 17:40:00 Cecelia Ley MD DIFFERENTIAL FIBRINOGEN ACTIVITY 2020-10-04 17:40:00 Cecelia Ley MD Results CBC 2020-10-04 17:40:00 Cecelia Ley MD Dereck son MANUAL DIFFERENTIAL 2020-10-04 17:40:00 Cecelia Ley MD BLOODCULTURE 2020-10-04 17:06:00 Ran Priest MD Dereckedel kim POC GLUCOSE SCREEN 2020-10-04 16:36:00 Randolph Payne MD on LACTIC ACID, VENOUS 2020-10-04 13:38:00 Chano Willams MD BASIC METABOLIC PANEL, 2020-10-04 13:38:00 Shraddha Nunn MD CALCIUM IONIZED CALCIUM LEVEL TOTAL 2020-10-04 13:38:00 Shraddha Nunn MD PHOSPHORUS LEVEL 2020-10-04 13:38:00 Shraddha Nunn MD MAGNESIUM LEVEL 2020-10-04 13:38:00 Shraddha Nunn MD ARTERIAL BLOOD GAS 2020-10-04 13:38:00 Shraddha Nunn MD on CALCIUM IONIZED, VENOUS 2020-10-04 13:38:00 Cory Hickman MD GLUCOSE LEVEL 2020-10-04 13:38:00 Cory Hickman MD BLOOD UREA NITROGEN 2020-10-04 13:38:00 Cory Hickman MD [facility] ELECTROLYTE PANEL 2020-10-04 13:38:00 Cory Hickman MD n SERUM CREATININE 2020-10-04 13:38:00 Cory Hickman MD .GLOMERULAR FILTRATION 2020-10-04 13:38:00 Cory Hickman MD RATE POC GLUCOSE SCREEN 2020-10-04 10:57:00 Randolph Payne MD on VRE CULTURE 2020-10-04 08:33:00 Yuriy Parker MD rson XR CHEST 1 VW PORTABLE 2020-10-04 06:27:00 Yuriy Parker MD LACTIC ACID, VENOUS 2020-10-04 06:05:00 Chano Willams MD BASIC METABOLIC PANEL, 2020-10-04 06:05:00 Shraddha Nunn MD CALCIUM IONIZED CALCIUM LEVEL TOTAL 2020-10-04 06:05:00 Shraddha Nunn MD Dereck son PHOSPHORUS LEVEL 2020-10-04 06:05:00 Shraddha Nunn MD MAGNESIUM LEVEL 2020-10-04 06:05:00 Shraddha Nunn MD ARTERIAL BLOOD GAS 2020-10-04 06:05:00 Shraddha Nunn MD on PROTHROMBIN TIME 2020-10-04 06:05:00 Yuriy Parker MD And erson APTT 2020-10-04 06:05:00 Yuriy Parker MD Jay rson HEPATIC FUNCTION PANEL 2020-10-04 06:05:00 Yuriy Parker MD COMPLETE BLOOD COUNT W/ 2020-10-04 06:05:00 Yuriy Parker MD INDICES CALCIUM IONIZED, VENOUS 2020-10-04 06:05:00 Cory Hickman MD nderson GLUCOSE LEVEL 2020-10-04 06:05:00 Cory Hickman MD BLOOD UREA NITROGEN 2020-10-04 06:05:00 Cory Hickman MD Dereckedel kim ELECTROLYTE PANEL 2020-10-04 06:05:00 Cory Hickman MDo n SERUM CREATININE 2020-10-04 06:05:00 Cory Hickman MD .GLOMERULAR FILTRATION 2020-10-04 06:05:00 Cory Hickman MD RATE ALBUMIN LEVEL 2020-10-04 06:05:00 Chano Willams MD ALKALINE PHOSPHATASE 2020-10-04 06:05:00 Chano Willams MD ALANINE AMINOTRANSFERASE 2020-10-04 06:05:00 Chano Willams MD ASPARTATE AMINOTRANSFERASE 2020-10-04 06:05:00 Chano Willams TOTAL PROTEIN 2020-10-04 06:05:00 Chano Willams MD FRACTIONATED BILIRUBIN 2020-10-04 06:05:00 Chano Willams MD MAGNESIUM LEVEL 2020-10-04 05:58:00 Chano Willams MD POC GLUCOSE SCREEN 2020-10-04 04:24:00 Randolph Payne MD on POC GLUCOSE SCREEN 2020-10-03 22:23:00 Randolph Payne MD on CALCIUM IONIZED, VENOUS 2020-10-03 21:07:00 Cory Hickman MD nderson GLUCOSE LEVEL 2020-10-03 21:07:00 Cory Hickman MD BLOOD UREA NITROGEN 2020-10-03 21:07:00 Cory Hickman MD ELECTROLYTE PANEL 2020-10-03 21:07:00 Cory Hickman MD SERUM CREATININE 2020-10-03 21:07:00 Cory Hickman MD .GLOMERULAR FILTRATION 2020-10-03 21:07:00 Cory Hickman MDson RATE HEPATITIS B SURFACE AG 2020-10-03 21:07:00 Rigo Orantes MD W/CONFIRM LACTIC ACID, VENOUS 2020-10-03 21:07:00 Chano Willams MD BASIC METABOLIC PANEL, 2020-10-03 21:07:00 Shraddha Nunn MD CALCIUM IONIZED CALCIUM LEVEL TOTAL 2020-10-03 21:07:00 Shraddha Nunn MD PHOSPHORUS LEVEL 2020-10-03 21:07:00 Shraddha Nunn MD MAGNESIUM LEVEL 2020-10-03 21:07:00 Shraddha Nunn MD ARTERIAL BLOOD GAS 2020-10-03 21:07:00 Shraddha Nunn MD on HEPATITIS B SURFACE 2020-10-03 21:07:00 Shraddha Nunn MD ANTIGEN, SERUM POC GLUCOSE SCREEN 2020-10-03 17:17:00 Randolph Payne MD on LACTIC ACID, VENOUS 2020-10-03 13:51:00 Chano Willams MD BASIC METABOLIC PANEL, 2020-10-03 13:51:00 Shraddha Nunn MD CALCIUM IONIZED CALCIUM LEVEL TOTAL 2020-10-03 13:51:00 Shraddha Nunn MD PHOSPHORUS LEVEL 2020-10-03 13:51:00 Shraddha Nunn MD ARTERIAL BLOOD GAS 2020-10-03 13:51:00 Chano Willams MD on CALCIUM IONIZED, VENOUS 2020-10-03 13:51:00 Cory Hickman MDrson GLUCOSE LEVEL 2020-10-03 13:51:00 Cory Hickman MD BLOOD UREA NITROGEN 2020-10-03 13:51:00 Cory Hickman MD Dereck son ELECTROLYTE PANEL 2020-10-03 13:51:00 Cory Hickman MD n SERUM CREATININE 2020-10-03 13:51:00 Cory Hickman MD .GLOMERULAR FILTRATION 2020-10-03 13:51:00 Cory Hickman MD RATE MAGNESIUM LEVEL 2020-10-03 13:51:00 Cory Hickman MD POC GLUCOSE SCREEN 2020-10-03 10:47:00 Randolph Payne MD on XR CHEST 1 VW PORTABLE 2020-10-03 06:41:19 Yuriy Parker MD LACTIC ACID, VENOUS 2020-10-03 05:42:00 Chano Willams MD BASIC METABOLIC PANEL, 2020-10-03 05:42:00 Shraddha Nunn MD CALCIUM IONIZED CALCIUM LEVEL TOTAL 2020-10-03 05:42:00 Shraddha Nunn MD PHOSPHORUS LEVEL 2020-10-03 05:42:00 Shraddha Nunn MD PROTHROMBIN TIME 2020-10-03 05:42:00 Yuriy Parker MD And erson APTT 2020-10-03 05:42:00 Yuriy Parker MD Jay rson ARTERIAL BLOOD GAS 2020-10-03 05:42:00 Chano Willams MD on MAGNESIUM LEVEL 2020-10-03 05:42:00 Chano Willams MD HEPATIC FUNCTION PANEL 2020-10-03 05:42:00 Yuriy Parker MD COMPLETE BLOOD COUNT W/ 2020-10-03 05:42:00 Yuriy Parker MD INDICES CALCIUM IONIZED, VENOUS 2020-10-03 05:42:00 Cory Hickman MDon GLUCOSE LEVEL 2020-10-03 05:42:00 Cory Hickman MD BLOOD UREA NITROGEN 2020-10-03 05:42:00 Cory Hickman MD De[facility] ELECTROLYTE PANEL 2020-10-03 05:42:00 Cory Hickman MD SERUM CREATININE 2020-10-03 05:42:00 Cory Hickman MD .GLOMERULAR FILTRATION 2020-10-03 05:42:00 Cory Hickman MD RATE ALBUMIN LEVEL 2020-10-03 05:42:00 Chano Willams MD ALKALINE PHOSPHATASE 2020-10-03 05:42:00 Chano Willams MD Jay rson ALANINE AMINOTRANSFERASE 2020-10-03 05:42:00 Chano Willams MD ASPARTATE AMINOTRANSFERASE 2020-10-03 05:42:00 Chano Willams TOTAL PROTEIN 2020-10-03 05:42:00 Chano Willams MD FRACTIONATED BILIRUBIN 2020-10-03 05:42:00 Chano Willams MD POC GLUCOSE SCREEN 2020-10-03 04:49:00 Randolph Payneers on POC GLUCOSE SCREEN 2020-10-02 22:26:00 Randolph Payne MD Herman on LACTIC ACID, VENOUS 2020-10-02 21:29:00 Chano Willams MD [facility] BASIC METABOLIC PANEL, 2020-10-02 21:29:00 Shraddha Nunn MD CALCIUM IONIZED CALCIUM LEVEL TOTAL 2020-10-02 21:29:00 Shraddha Nunn MD [facility] PHOSPHORUS LEVEL 2020-10-02 21:29:00 Shraddha Nunn MD ARTERIAL BLOOD GAS 2020-10-02 21:29:00 Chano Willams MD Herman on MAGNESIUM LEVEL 2020-10-02 21:29:00 Chano Willams MD CALCIUM IONIZED, VENOUS 2020-10-02 21:29:00 Cory Hickman MD nderson GLUCOSE LEVEL 2020-10-02 21:29:00 Cory Hickman MD BLOOD UREA NITROGEN 2020-10-02 21:29:00 Cory Hickman MD [facility] ELECTROLYTE PANEL 2020-10-02 21:29:00 Cory Hickman MD SERUM CREATININE 2020-10-02 21:29:00 Cory Hickman MD .GLOMERULAR FILTRATION 2020-10-02 21:29:00 Cory Hickman MD derson RATE POC GLUCOSE SCREEN 2020-10-02 16:42:00 Randolph Payne MD on ARTERIAL BLOOD GAS 2020-10-02 15:36:00 Chano Willams MD on MAGNESIUM LEVEL 2020-10-02 15:36:00 Chano Willams MD TYPE AND SCREEN 2020-10-02 12:59:00 Yuriy Parker MD Jay rson LACTIC ACID, VENOUS 2020-10-02 12:59:00 Chano Willams MD Dereck son BASIC METABOLIC PANEL, 2020-10-02 12:59:00 Shraddha Nunn MD CALCIUM IONIZED CALCIUM LEVEL TOTAL 2020-10-02 12:59:00 Shraddha Nunn MD Dereck son PHOSPHORUS LEVEL 2020-10-02 12:59:00 Shraddha Nunn MD ABORH 2020-10-02 12:59:00 Karyn Andre MD son ANTIBODY SCREEN 2020-10-02 12:59:00 Karyn Andre MD Dereck son CALCIUM IONIZED, VENOUS 2020-10-02 12:59:00 Cory Hickman MD nderson GLUCOSE LEVEL 2020-10-02 12:59:00 Cory Hickman MD BLOOD UREA NITROGEN 2020-10-02 12:59:00 Cory Hickman MD son ELECTROLYTE PANEL 2020-10-02 12:59:00 Cory Hickman MD SERUM CREATININE 2020-10-02 12:59:00 Cory Hickman MD .GLOMERULAR FILTRATION 2020-10-02 12:59:00 Cory Hickman MD derson RATE CLOT EXPIRATION DATE 2020-10-02 12:59:00 Karyn Andre MD TMP INTERPRETATION 2020-10-02 12:59:00 Karyn Andre MD derson ANTIBODY SCREEN NEGATIVE POC GLUCOSE SCREEN 2020-10-02 10:41:00 Randolph Payne MD on XR CHEST 1 VW PORTABLE 2020-10-02 07:42:56 Yuriy Parker MD GENERAL LABORATORY ADD ON 2020-10-02 07:35:00 Lela Corral MD TEST GENERAL LABORATORY ADD ON 2020-10-02 07:32:00 Lela Corral MD TEST LACTIC ACID, VENOUS 2020-10-02 05:56:00 Chano Willams MD BASIC METABOLIC PANEL, 2020-10-02 05:56:00 Shraddha Nunn MD CALCIUM IONIZED CALCIUM LEVEL TOTAL 2020-10-02 05:56:00 Shraddha Nunn MD PHOSPHORUS LEVEL 2020-10-02 05:56:00 Shraddha Nunn MD PROTHROMBIN TIME 2020-10-02 05:56:00 Yuriy Parker MD And erson APTT 2020-10-02 05:56:00 Yuriy Parker MD Jay rson ARTERIAL BLOOD GAS 2020-10-02 05:56:00 Chano Willams MD on MAGNESIUM LEVEL 2020-10-02 05:56:00 Chano Willams MD HEPATIC FUNCTION PANEL 2020-10-02 05:56:00 Yuriy Parker MD COMPLETE BLOOD COUNT W/ 2020-10-02 05:56:00 Yuriy Parker MD INDICES CALCIUM IONIZED, VENOUS 2020-10-02 05:56:00 Cory Hickman MD nderson GLUCOSE LEVEL 2020-10-02 05:56:00 Cory Hickman MD BLOOD UREA NITROGEN 2020-10-02 05:56:00 Cory Hickman MD ELECTROLYTE PANEL 2020-10-02 05:56:00 Cory Hickman MDo n SERUM CREATININE 2020-10-02 05:56:00 Cory Hickman MD .GLOMERULAR FILTRATION 2020-10-02 05:56:00 Cory Hickman MDson RATE ALBUMIN LEVEL 2020-10-02 05:56:00 Chano Willams MD ALKALINE PHOSPHATASE 2020-10-02 05:56:00 Chano Willams MD ALANINE AMINOTRANSFERASE 2020-10-02 05:56:00 Chano Willams MD ASPARTATE AMINOTRANSFERASE 2020-10-02 05:56:00 Chano Willams TOTAL PROTEIN 2020-10-02 05:56:00 Chano Willams MD FRACTIONATED BILIRUBIN 2020-10-02 05:56:00 Chano Willams MD POC GLUCOSE SCREEN 2020-10-02 04:42:00 Randolph Payne MD on POC GLUCOSE SCREEN 2020-10-01 22:24:00 Randolph aPyne MD Herman on LACTIC ACID, VENOUS 2020-10-01 21:48:00 Chano Willams MD [facility] BASIC METABOLIC PANEL, 2020-10-01 21:48:00 Shraddha Nunn MD CALCIUM IONIZED CALCIUM LEVEL TOTAL 2020-10-01 21:48:00 Shraddha Nunn MD [facility] PHOSPHORUS LEVEL 2020-10-01 21:48:00 Shraddha Nunn MD ARTERIAL BLOOD GAS 2020-10-01 21:48:00 Chano Willams MD on MAGNESIUM LEVEL 2020-10-01 21:48:00 Chano Willams MD THYROID STIMULATING 2020-10-01 21:48:00 Jurgen Queen MD [facility] HORMONE FREE THYROXINE 2020-10-01 21:48:00 Jurgen Queen MD CALCIUM IONIZED, VENOUS 2020-10-01 21:48:00 Cory Hickman MD nderson GLUCOSE LEVEL 2020-10-01 21:48:00 Cory Hickman MD BLOOD UREA NITROGEN 2020-10-01 21:48:00 Cory Hickman MD [facility] ELECTROLYTE PANEL 2020-10-01 21:48:00 Cory Hickman MD SERUM CREATININE 2020-10-01 21:48:00 Cory Hickman MD .GLOMERULAR FILTRATION 2020-10-01 21:48:00 Cory Hickman MD RATE XR ABDOMEN 1 VW PORTABLE 2020-10-01 18:55:51 Kiara Tijerina MD POC GLUCOSE SCREEN 2020-10-01 16:30:00 Randolph Payne MD on LACTIC ACID, VENOUS 2020-10-01 13:38:00 Chano Willams MD BASIC METABOLIC PANEL, 2020-10-01 13:38:00 Shraddha Nunn MD CALCIUM IONIZED CALCIUM LEVEL TOTAL 2020-10-01 13:38:00 Shraddha Nunn MD Dereck son PHOSPHORUS LEVEL 2020-10-01 13:38:00 Shraddha Nunn MD ARTERIAL BLOOD GAS 2020-10-01 13:38:00 Chano Willams MD on MAGNESIUM LEVEL 2020-10-01 13:38:00 Chano Willams MD CALCIUM IONIZED, VENOUS 2020-10-01 13:38:00 Cory Hickman MDrson GLUCOSE LEVEL 2020-10-01 13:38:00 Cory Hickman MD BLOOD UREA NITROGEN 2020-10-01 13:38:00 Cory Hickman MD [facility] ELECTROLYTE PANEL 2020-10-01 13:38:00 Cory Hickman MD SERUM CREATININE 2020-10-01 13:38:00 Cory Hickman MD .GLOMERULAR FILTRATION 2020-10-01 13:38:00 Cory Hickman MD RATE POC GLUCOSE SCREEN 2020-10-01 10:26:00 Randolph Payne MD on ARTERIAL BLOOD GAS 2020-10-01 06:43:00 Chano Willams MD on XR CHEST 1 VW PORTABLE 2020-10-01 05:54:00 Yuriy Parker MD LACTIC ACID, VENOUS 2020-10-01 05:47:00 Chano Willams MD Dereckedel kim CALCIUM LEVEL TOTAL 2020-10-01 05:47:00 Shraddha Nunn MD VENOUS BLOOD GAS 2020-10-01 05:47:00 Karyn Andre MD Jay rson PROTHROMBIN TIME 2020-10-01 05:47:00 Yuriy Parker MD And erson APTT 2020-10-01 05:47:00 Yuriy Parker MD Jay rson BASIC METABOLIC PANEL, 2020-10-01 05:47:00 Chano Willams MD CALCIUM IONIZED MAGNESIUM LEVEL 2020-10-01 05:47:00 Chano Willams MD PHOSPHORUS LEVEL 2020-10-01 05:47:00 Chano Willams MD COMPLETE BLOOD COUNT W/ 2020-10-01 05:47:00 Chano Willams MDrson INDICES HEPATIC FUNCTION PANEL 2020-10-01 05:47:00 Yuriy Parker MD CALCIUM IONIZED, VENOUS 2020-10-01 05:47:00 Chano Willams MDon GLUCOSE LEVEL 2020-10-01 05:47:00 Chano Willams MD BLOOD UREA NITROGEN 2020-10-01 05:47:00 Chano Willams MD ELECTROLYTE PANEL 2020-10-01 05:47:00 Chano Willams MD SERUM CREATININE 2020-10-01 05:47:00 Chano Willams MD .GLOMERULAR FILTRATION 2020-10-01 05:47:00 Chano Willams MD RATE ALBUMIN LEVEL 2020-10-01 05:47:00 Chano Willams MD ALKALINE PHOSPHATASE 2020-10-01 05:47:00 Chano Willams MD ALANINE AMINOTRANSFERASE 2020-10-01 05:47:00 Chano Willams MD ASPARTATE AMINOTRANSFERASE 2020-10-01 05:47:00 Chano Willams TOTAL PROTEIN 2020-10-01 05:47:00 Chano Willams MD FRACTIONATED BILIRUBIN 2020-10-01 05:47:00 Chano Willams MD POC GLUCOSE SCREEN 2020-10-01 04:13:00 Randolph Payne MD on EKG, 12-LEAD (PORTABLE) 2020-10-01 00:00:00 Yuriy Pakrer MD POC GLUCOSE SCREEN 2020-09-30 22:29:00 Randolph aPyne MD on ARTERIAL BLOOD GAS 2020-09-30 21:54:00 Chano Willams MD on LACTIC ACID, VENOUS 2020-09-30 21:54:00 Chano Willams MD COMPLETE BLOOD COUNT W/ 2020-09-30 21:54:00 Chano Willams MDrson INDICES BASIC METABOLIC PANEL, 2020-09-30 21:54:00 Shraddha Nunn MD CALCIUM IONIZED CALCIUM LEVEL TOTAL 2020-09-30 21:54:00 Shraddha Nunn MD PHOSPHORUS LEVEL 2020-09-30 21:54:00 Shraddha Nunn MD MAGNESIUM LEVEL 2020-09-30 21:54:00 Shraddha Nunn MD CALCIUM IONIZED, VENOUS 2020-09-30 21:54:00 Cory Hickman MD GLUCOSE LEVEL 2020-09-30 21:54:00 Cory Hickman MD BLOOD UREA NITROGEN 2020-09-30 21:54:00 Cory Hickman MD ELECTROLYTE PANEL 2020-09-30 21:54:00 Cory Hickman MDo n SERUM CREATININE 2020-09-30 21:54:00 Cory Hickman MD .GLOMERULAR FILTRATION 2020-09-30 21:54:00 Cory Hickman MD RATE TRANSFUSE FRESH FROZEN 2020-09-30 21:30:00 Chano Willams MD PLASMA LEGIONELLA CULTURE 2020-09-30 21:25:00 Chano Willamsers on AFB CULTURE W/ SMEAR 2020-09-30 21:25:00 Chano Willams MD Jay rson FUNGUS CULTURE 2020-09-30 21:25:00 Chano Willams MD LOWER RESPIRATORY CULTURE 2020-09-30 21:25:00 Chano Willams MD W/ GRAM STAIN PNEUMOCYSTIS JIROVECI 2020-09-30 21:25:00 Chano Willams MD And erson QUANT, BAL CYTOLOGY NON-FLYING I INSTRUCTOR 2020-09-30 21:17:00 Chano Willams MD INTERPRETATION XR CHEST 1 VW PORTABLE 2020-09-30 20:30:10 Chano Willams MD HEPATITIS B SURFACE 2020-09-30 18:36:00 Shraddha Nunn MD ANTIGEN, SERUM LACTIC ACID, VENOUS 2020-09-30 18:36:00 Chano Willams MD Dereck son HEPATITIS B SURFACE AG 2020-09-30 18:36:00 Cory Hickman MD W/CONFIRM CT INSERT NON-TUNNEL CV 2020-09-30 17:15:00 Chano Willams MD CATH CT CHG US GUIDE, VASCULAR 2020-09-30 17:15:00 Chano Willams MD ACCESS CT INSERT 2020-09-30 17:15:00 Chano Willams MD CATH,ART,CUTDOWN,SHORTTERM ARTERIAL BLOOD GAS 2020-09-30 17:12:00 Chano Willams MD on POC GLUCOSE SCREEN 2020-09-30 16:50:00 Randolph Payne MD on TRANSFUSE FRESH FROZEN 2020-09-30 16:42:00 Chano Willams MD PLASMA BASIC METABOLIC PANEL, 2020-09-30 15:48:00 Chano Willams MD CALCIUM IONIZED MAGNESIUM LEVEL 2020-09-30 15:48:00 Chano Willams MD PHOSPHORUS LEVEL 2020-09-30 15:48:00 Chano Willams MD COMPLETE BLOOD COUNT W/ 2020-09-30 15:48:00 Chano Willams MD INDICES GLUCOSE LEVEL 2020-09-30 15:48:00 Chano Willams MD BLOOD UREA NITROGEN 2020-09-30 15:48:00 Chano Willams MD Dereck son ELECTROLYTE PANEL 2020-09-30 15:48:00 Chano Willams MDo n SERUM CREATININE 2020-09-30 15:48:00 Chano Willams MD .GLOMERULAR FILTRATION 2020-09-30 15:48:00 hCano Willams MD RATE CALCIUM IONIZED, VENOUS 2020-09-30 15:48:00 Chano Willams MD XR CHEST 1 VW 2020-09-30 14:42:55 Chano Willams MD PREPARE FRESH FROZEN 2020-09-30 11:20:00 Chano Willams MD rson PLASMA FFP PRODUCT READY FOR PICK 2020-09-30 11:20:00 Randolph Payne UP POC GLUCOSE SCREEN 2020-09-30 11:18:00 Randolph Payne MD on GENERAL LABORATORY ADD ON 2020-09-30 11:11:00 Chano Willams MD TEST COMPLETE BLOOD COUNT W/ 2020-09-30 07:54:00 Chano Willams MD nderson DIFFERENTIAL BASIC METABOLIC PANEL, 2020-09-30 07:54:00 Chano Willams MD CALCIUM IONIZED MAGNESIUM LEVEL 2020-09-30 07:54:00 Chano Willams MD PHOSPHORUS LEVEL 2020-09-30 07:54:00 Chano Willams MD CARDIAC PANEL 2020-09-30 07:54:00 Karyn Andre MD [facility] VENOUS BLOOD GAS 2020-09-30 07:54:00 Karyn Andre MD Jay rson PROTHROMBIN TIME 2020-09-30 07:54:00 Yuriy Parker MD And erson APTT 2020-09-30 07:54:00 Yuriy Parker MD Jay rson Results CBC 2020-09-30 07:54:00 Chano Willams MD MANUAL DIFFERENTIAL 2020-09-30 07:54:00 Chano Willams MD Dereck son GLUCOSE LEVEL 2020-09-30 07:54:00 Chano Willams MD BLOOD UREA NITROGEN 2020-09-30 07:54:00 Chano Willams MD Dereck son ELECTROLYTE PANEL 2020-09-30 07:54:00 Chano Willams MDo n SERUM CREATININE 2020-09-30 07:54:00 Chano Willams MD .GLOMERULAR FILTRATION 2020-09-30 07:54:00 Chano Willams MD RATE CALCIUM IONIZED, VENOUS 2020-09-30 07:54:00 Chano Willams MD ALBUMIN LEVEL 2020-09-30 07:54:00 Randolph Payne MD ALKALINE PHOSPHATASE 2020-09-30 07:54:00 Randolph Payne MD Jay rsaldo ALANINE AMINOTRANSFERASE 2020-09-30 07:54:00 Randolph Payne MD ASPARTATE AMINOTRANSFERASE 2020-09-30 07:54:00 Randolph Payne TOTAL PROTEIN 2020-09-30 07:54:00 Randolph Payne MD FRACTIONATED BILIRUBIN 2020-09-30 07:54:00 Randolph Payne MD XR CHEST 1 VW PORTABLE 2020-09-30 06:08:59 Yuriy Parker MD POC GLUCOSE SCREEN 2020-09-30 04:38:00 Randolph Payne MD on POC GLUCOSE SCREEN 2020-09-29 22:06:00 Randolph Payne MD on CARDIAC PANEL 2020-09-29 20:28:00 Karyn Andre MD [facility] BASIC METABOLIC PANEL, 2020-09-29 20:28:00 Chano Willams MD CALCIUM IONIZED MAGNESIUM LEVEL 2020-09-29 20:28:00 Chano Willams MD PHOSPHORUS LEVEL 2020-09-29 20:28:00 Chano Willams MD GLUCOSE LEVEL 2020-09-29 20:28:00 Chano Willams MD BLOOD UREA NITROGEN 2020-09-29 20:28:00 Chano Willams MD [facility] ELECTROLYTE PANEL 2020-09-29 20:28:00 Chano Willams MD n SERUM CREATININE 2020-09-29 20:28:00 Chano Willams MD .GLOMERULAR FILTRATION 2020-09-29 20:28:00 Chano Willams MD RATE CALCIUM IONIZED, VENOUS 2020-09-29 20:28:00 Chano Willams MD FIBRINOGEN ACTIVITY 2020-09-29 19:30:00 Chano Willams MD [facility] COMPLETE BLOOD COUNT W/ 2020-09-29 19:30:00 Chano Willams MD DIFFERENTIAL CALCIUM IONIZED, VENOUS 2020-09-29 19:30:00 Chano Willams MD Results CBC 2020-09-29 19:30:00 Chano Willams MD DIFFERENTIAL CANCEL 2020-09-29 19:30:00 Chano Willams MD [facility] VENOUS BLOOD GAS 2020-09-29 17:13:00 Karyn Andre MD Jay rson COMPLETE BLOOD COUNT W/ 2020-09-29 17:13:00 Chano Willams MDrson DIFFERENTIAL BASIC METABOLIC PANEL, 2020-09-29 17:13:00 Chano Willams MDson CALCIUM IONIZED MAGNESIUM LEVEL 2020-09-29 17:13:00 Chano Willams MD PHOSPHORUS LEVEL 2020-09-29 17:13:00 Chnao Willams MD CALCIUM IONIZED, VENOUS 2020-09-29 17:13:00 Chano Willams MDrson Results CBC 2020-09-29 17:13:00 Chano Willams MD GLUCOSE LEVEL 2020-09-29 17:13:00 Chano Willams MD BLOOD UREA NITROGEN 2020-09-29 17:13:00 Chano Willams MD [facility] ELECTROLYTE PANEL 2020-09-29 17:13:00 Chano Willams MD SERUM CREATININE 2020-09-29 17:13:00 Chano Willams MD .GLOMERULAR FILTRATION 2020-09-29 17:13:00 Chano Willams MD RATE DIFFERENTIAL CANCEL 2020-09-29 17:13:00 Chano Willams MD [facility] URINALYSIS WITH 2020-09-29 16:51:00 Bud Jarrett MD rsaldo MICROSCOPIC IF INDICATED Junior URINALYSIS MICROSCOPIC 2020-09-29 16:51:00 Bud Jarrett MD Junior ECHOCARDIOGRAM 2D LIMITED 2020-09-29 16:24:44 Karyn Andre MD - FOLLOW UP POC GLUCOSE SCREEN 2020-09-29 16:08:00 Randolph Payne MD on BASIC METABOLIC PANEL, 2020-09-29 13:18:00 Karyn Andre CALCIUM IONIZED CARDIAC PANEL 2020-09-29 13:18:00 Karyn Andre MD Dereck son MAGNESIUM LEVEL 2020-09-29 13:18:00 Karyn Andre MD [facility] PHOSPHORUS LEVEL 2020-09-29 13:18:00 Karyn Andre MD Jay rson HEPATIC FUNCTION PANEL 2020-09-29 13:18:00 Karyn Andre GLUCOSE LEVEL 2020-09-29 13:18:00 Karyn Andre MD [facility] BLOOD UREA NITROGEN 2020-09-29 13:18:00 Karyn Andre MD ELECTROLYTE PANEL 2020-09-29 13:18:00 Karyn Andre MD And bijan SERUM CREATININE 2020-09-29 13:18:00 Karyn Andree rson .GLOMERULAR FILTRATION 2020-09-29 13:18:00 Karyn Andre RATE ALBUMIN LEVEL 2020-09-29 13:18:00 Karyn Andre MD [facility] ALKALINE PHOSPHATASE 2020-09-29 13:18:00 Karyn Andre MD ALANINE AMINOTRANSFERASE 2020-09-29 13:18:00 Karyn Andre MD ASPARTATE AMINOTRANSFERASE 2020-09-29 13:18:00 Karyn Andre MD TOTAL PROTEIN 2020-09-29 13:18:00 Karyn Andre MD [facility] FRACTIONATED BILIRUBIN 2020-09-29 13:18:00 Karyn Andre BLOODCULTURE 2020-09-29 13:10:00 Karyn Andre MD [facility] TYPE AND SCREEN 2020-09-29 13:10:00 Karyn Andre MD [facility] ABORH 2020-09-29 13:10:00 Karyn Andre MD [facility] ANTIBODY SCREEN 2020-09-29 13:10:00 Karyn Andre MD Dereck son CLOT EXPIRATION DATE 2020-09-29 13:10:00 Karyn Andre MD TMP INTERPRETATION 2020-09-29 13:10:00 Karyn Andre MDson ANTIBODY SCREEN NEGATIVE RESPIRATORY VIRAL PANEL + 2020-09-29 12:21:00 Marty Jarrett MD COVID-19, NASOPHARYNGEAL Junior SWAB BLOODCULTURE 2020-09-29 11:30:00 Karyn Andre MD [facility] ARTERIAL BLOOD GAS 2020-09-29 11:26:00 Karyn Andre MD XR CHEST 1 VW 2020-09-29 11:21:00 Karyn Andre MD [facility] POC GLUCOSE SCREEN 2020-09-29 11:15:00 Bud Jarrett MDE CULTURE 2020-09-29 11:07:00 Karyn Andre MD Dereck son EKG, 12-LEAD (PORTABLE) 2020-09-29 00:00:00 Karyn Andre MD OSI CHEST 2020-09-28 16:51:00 Kristina Blake MD POC GLUCOSE SCREEN 2020-09-23 19:39:00 Kristina Blake MD on POC GLUCOSE SCREEN 2020-09-23 14:58:00 Kristina Blake MD on CALCIUM IONIZED, VENOUS 2020-09-23 10:22:00 Jose Luis Martínez MD COMPLETE BLOOD COUNT W/ 2020-09-23 10:22:00 Kimberlee [...] rson LACTATE DEHYDROGENASE 2020-09-23 10:22:00 Kimberlee Blackmon URIC ACID 2020-09-23 10:22:00 Kimberlee Blackmon MD Jay rson PHOSPHORUS LEVEL 2020-09-23 10:22:00 Kimberlee Blackmon MD [...] Kimberlee Blackmon MD And erson .GLOMERULAR FILTRATION 2020-09-23 10:22:00 Kimberlee Blackmon MD RATE ANION GAP 2020-09-23 10:22:00 Kimberlee Blackmon MD Jay rson CLOT EXPIRATION DATE 2020-09-23 10:22:00 Kristina Blake MD Jay rson TMP INTERPRETATION 2020-09-23 10:22:00 Kristina Blake MD Herman on ANTIBODY SCREEN NEGATIVE POC GLUCOSE SCREEN 2020-09-23 03:28:00 Kristina Blake MD Herman on POC GLUCOSE SCREEN 2020-09-22 22:57:00 Kristina Blake MD Herman on POC GLUCOSE SCREEN 2020-09-22 16:38:00 Kristina Blake MD Herman on FL CHEMO INTO MUFFLE WORKER W/SPIN 2020-09-22 14:44:18 Estella Priest MD [facility] CELL COUNT W/ DIFF 2020-09-22 14:24:00 Kristina Blake MD Herman on CEREBROSPINAL FLUID PROTEIN CEREBROSPINAL 2020-09-22 14:24:00 Kristina Blake MD And erson FLUID GLUCOSE CEREBROSPINAL 2020-09-22 14:24:00 Kristina Blake MD And erson FLUID BETA 2 MICROGLOBULIN CSF 2020-09-22 14:24:00 Kristina Blake MD HP FC LYMPHOMA B 2020-09-22 14:24:00 Estella Priest MD COLLECTION, NONBLOOD HP FC FLOW CYTOMETRY BLOOD 2020-09-22 14:24:00 Estella Priest MD COLLECTION HP FC LYMPHOMA B 2020-09-22 14:24:00 Estella Priest MD KAPPA/LAMBDA INTERPRETATION AND REPORT CYTOLOGY NON-FLYING I INSTRUCTOR 2020-09-22 14:22:00 Rosario Lund MD Herman on INTERPRETATION COMPLETE BLOOD COUNT W/ 2020-09-22 09:13:00 Kimberlee Blackmon MD DIFFERENTIAL SODIUM LEVEL 2020-09-22 09:13:00 Kimberlee Blackmon MD Jay rson POTASSIUM LEVEL 2020-09-22 09:13:00 Kimberlee Blackmon MD Jay rson CHLORIDE LEVEL 2020-09-22 09:13:00 Kimberlee Blackmon MD Jay rson CARBON DIOXIDE LEVEL 2020-09-22 09:13:00 Kimberlee Blackmon MD BLOOD UREA NITROGEN 2020-09-22 09:13:00 Kimberlee Blackmon MD SERUM CREATININE 2020-09-22 09:13:00 Kimberlee Blackmon MD And erson GLUCOSE, RANDOM 2020-09-22 09:13:00 Kimberlee Blackmon MD Jay rson LACTATE DEHYDROGENASE 2020-09-22 09:13:00 Kimberlee Blackmon URIC ACID 2020-09-22 09:13:00 Kimberlee Blackmon MD Jay rson PHOSPHORUS LEVEL 2020-09-22 09:13:00 Kimberlee Blackmon MD And erson FRACTIONATED BILIRUBIN 2020-09-22 09:13:00 Kimberlee Blackmon MD ALBUMIN LEVEL 2020-09-22 09:13:00 Kimberlee Blackmon MD Jay rson CALCIUM LEVEL TOTAL 2020-09-22 09:13:00 Kimberlee Blackmon MD MAGNESIUM LEVEL 2020-09-22 09:13:00 Kimberlee Blackmon MD Jay rson ALANINE AMINOTRANSFERASE 2020-09-22 09:13:00 Kimberlee Blackmon MD ASPARTATE AMINOTRANSFERASE 2020-09-22 09:13:00 Kimberlee Blackmon MD ALKALINE PHOSPHATASE 2020-09-22 09:13:00 Kimberlee Blackmon MD HEPATITIS BE ANTIBODY, 2020-09-22 09:13:00 Swapnil Rose MD An derson SERUM HEPATITIS BE ANTIGEN, 2020-09-22 09:13:00 Swapnil Rose MD And biajn SERUM HEPATITIS B CORE ANTIBODY 2020-09-22 09:13:00 Swapnil Rose MD HEPATITIS B SURFACE 2020-09-22 09:13:00 Swapnil Rose MD Dereck son ANTIBODY, SERUM Results CBC 2020-09-22 09:13:00 Kimberlee Blackmon MD Jay rson MANUAL DIFFERENTIAL 2020-09-22 09:13:00 Kimberlee Blackmon MD SERUM CREATININE 2020-09-22 09:13:00 Kimberlee Blackmon MD And prabhjoton .GLOMERULAR FILTRATION 2020-09-22 09:13:00 Kimberlee Blackmon MD RATE HC REF HEPATITIS BC AB, 2020-09-22 09:13:00 Swapnil Rose MD nderson IGG & IGM ANION GAP 2020-09-22 09:13:00 Kimberlee Blackmon MD Jay rson POC GLUCOSE SCREEN 2020-09-22 02:40:00 Kristina Blake MD on POC GLUCOSE SCREEN 2020-09-21 22:06:00 Kristina Blake MD Herman on T-SPOT TUBERCULOSIS 2020-09-21 21:36:00 Torin Orozco MD Dereckedel kim SERUM CREATININE 2020-09-21 21:36:00 Jose Luis Martínez MD BLOOD UREA NITROGEN 2020-09-21 21:36:00 Jose Luis Martínez MD Jay rson MAGNESIUM LEVEL 2020-09-21 21:36:00 Jose Luis Martínez MD PHOSPHORUS LEVEL 2020-09-21 21:36:00 Jose Luis Martínez MD CALCIUM IONIZED, VENOUS 2020-09-21 21:36:00 Jose Luis Martínez MD LACTATE DEHYDROGENASE 2020-09-21 21:36:00 Jose Luis Martínez MD URIC ACID RASBURICASE 2020-09-21 21:36:00 Jose Luis Martínez MD TREATED CARDIAC PANEL 2020-09-21 21:36:00 Peyton Santana MD PROTHROMBIN TIME 2020-09-21 21:36:00 Kristina Blake MD APTT 2020-09-21 21:36:00 Kristina Blake MD SERUM CREATININE 2020-09-21 21:36:00 Jose Luis Martínez MD .GLOMERULAR FILTRATION 2020-09-21 21:36:00 Jose Luis Martínez MD nderson RATE PROCEDURE FOR CODING 2020-09-21 20:53:00 Kristina Blake MD POC GLUCOSE SCREEN 2020-09-21 15:25:00 Kristina Blake [...] MD And erson FRACTIONATED BILIRUBIN 2020-09-21 06:26:00 NeymarKimberlee richter MD ALBUMIN LEVEL 2020-09-21 06:26:00 Kimberlee Blackmon MD Jay rson CALCIUM LEVEL TOTAL 2020-09-21 06:26:00 Kimberlee Blackmon MD MAGNESIUM LEVEL 2020-09-21 06:26:00 Kimberlee Blackmon MD Jay rson ALANINE AMINOTRANSFERASE 2020-09-21 06:26:00 Kimberlee Blackmon MD ASPARTATE AMINOTRANSFERASE 2020-09-21 06:26:00 Kimberlee Blackmon MD ALKALINE PHOSPHATASE 2020-09-21 06:26:00 Kimberlee Blackmon MD PROTHROMBIN TIME 2020-09-21 06:26:00 Peyton Santana MD on APTT 2020-09-21 06:26:00 Peyton Santana MD n Results CBC 2020-09-21 06:26:00 Kimberlee Blackmon MD Jay rson MANUAL DIFFERENTIAL 2020-09-21 06:26:00 Kimberlee Blackmon MD SERUM CREATININE 2020-09-21 06:26:00 Kimberlee Blackmon MD And erson .GLOMERULAR FILTRATION 2020-09-21 06:26:00 Kimberlee Blackmon MD RATE ANION GAP 2020-09-21 06:26:00 Kimberlee Blackmon MD Jay rson POC GLUCOSE SCREEN 2020-09-21 04:50:00 Kristina Blake MD on POC GLUCOSE SCREEN 2020-09-21 02:40:00 Kristina Blake MD on EKG, 12-LEAD (PORTABLE) 2020-09-21 00:00:00 Mary Smith MD nderson SERUM CREATININE 2020-09-20 21:41:00 Jose Luis Martínez MD BLOOD UREA NITROGEN 2020-09-20 21:41:00 Jose Luis Martínez MD Jay rson MAGNESIUM LEVEL 2020-09-20 21:41:00 Jose Luis Martínez MD PHOSPHORUS LEVEL 2020-09-20 21:41:00 Jose Luis Martínez MD CALCIUM IONIZED, VENOUS 2020-09-20 21:41:00 Jose Luis Martínez MD LACTATE DEHYDROGENASE 2020-09-20 21:41:00 Jose Luis Martínez MD URIC ACID RASBURICASE 2020-09-20 21:41:00 Jose Luis Martínez MD TREATED SERUM CREATININE 2020-09-20 21:41:00 Jose Luis Martínez MD .GLOMERULAR FILTRATION 2020-09-20 21:41:00 Jose Luis Martínez MD nderson RATE POC GLUCOSE SCREEN 2020-09-20 19:35:00 Kristina Blake MD on POC GLUCOSE SCREEN 2020-09-20 13:11:00 Kristina Blake MD Herman on COMPLETE BLOOD COUNT W/ 2020-09-20 09:53:00 Kimberlee Blackmon MD DIFFERENTIAL SODIUM LEVEL 2020-09-20 09:53:00 Kimberlee Blackmon MD Jay rson POTASSIUM LEVEL 2020-09-20 09:53:00 Kimberlee Blackmon MD Jay rson CHLORIDE LEVEL 2020-09-20 09:53:00 Kimberlee Blackmon MD Jay rson CARBON DIOXIDE LEVEL 2020-09-20 09:53:00 Kimberlee Blackmon MD BLOOD UREA NITROGEN 2020-09-20 09:53:00 Kimberlee Blackmon MD SERUM CREATININE 2020-09-20 09:53:00 Kimberlee Blackmon MD And erson GLUCOSE, RANDOM 2020-09-20 09:53:00 Kimberlee Blackmon MD Jay rson LACTATE DEHYDROGENASE 2020-09-20 09:53:00 Kimberlee Blackmon URIC ACID 2020-09-20 09:53:00 Kimberlee Blackmon MD Jay rson PHOSPHORUS LEVEL 2020-09-20 09:53:00 Kimberlee Blackmon MD And erson FRACTIONATED BILIRUBIN 2020-09-20 09:53:00 NeymarKimberlee richter MD ALBUMIN LEVEL 2020-09-20 09:53:00 Kimberlee Blackmon MD Jay rson CALCIUM LEVEL TOTAL 2020-09-20 09:53:00 Kimberlee Blackmon MD MAGNESIUM LEVEL 2020-09-20 09:53:00 NeymarKimberlee richter MD Jay rson ALANINE AMINOTRANSFERASE 2020-09-20 09:53:00 Kimberlee Blackmon MD ASPARTATE AMINOTRANSFERASE 2020-09-20 09:53:00 Kimberlee Blackmon MD ALKALINE PHOSPHATASE 2020-09-20 09:53:00 Kimberlee Blackmon MD TYPE AND SCREEN 2020-09-20 09:53:00 Vania Pascual MD on ABORH 2020-09-20 09:53:00 Kristina Blake MD ANTIBODY SCREEN 2020-09-20 09:53:00 Kristina Blake MD Results CBC 2020-09-20 09:53:00 Kimberlee Blackmon MD Jay rson MANUAL DIFFERENTIAL 2020-09-20 09:53:00 Kimberlee Blackmon MD SERUM CREATININE 2020-09-20 09:53:00 Kimberlee Blackmon MD And erson .GLOMERULAR FILTRATION 2020-09-20 09:53:00 Kimberlee Blackmon MD RATE ANION GAP 2020-09-20 09:53:00 Kimberlee Blackmon MD Jay rson TMP INTERPRETATION 2020-09-20 09:53:00 Kristina Blake MD on ANTIBODY SCREEN NEGATIVE CLOT EXPIRATION DATE 2020-09-20 09:53:00 Kristina Blake MD Jay rson POC GLUCOSE SCREEN 2020-09-20 03:33:00 Kristina Blake [...] 21:28:00 Jose Luis Martínez MD .GLOMERULAR FILTRATION 2020-09-19 21:28:00 Jose Luis Martínez MD nderson RATE POC GLUCOSE SCREEN 2020-09-19 20:52:00 Kristina Blake MD on POC GLUCOSE SCREEN 2020-09-19 18:19:00 Kristina Blake MD on URINALYSIS MICROSCOPIC 2020-09-19 17:24:00 Mauri Neal MD URINALYSIS WITH 2020-09-19 17:24:00 Kristina Blake MD MICROSCOPIC IF INDICATED POC GLUCOSE SCREEN 2020-09-19 13:06:00 [...] 09:42:00 Kimberlee Blackmon URIC ACID 2020-09-19 09:42:00 NeyamrKimberlee richter MD Jay rson PHOSPHORUS LEVEL 2020-09-19 09:42:00 [...] Results CBC 2020-09-19 09:42:00 Kimberlee Blackmon MD [facility]elliott [facility] MANUAL DIFFERENTIAL 2020-09-19 09:42:00 Kimberlee Blackmon MD SERUM CREATININE 2020-09-19 09:42:00 Kimberlee Blackmon MD And bijan .GLOMERULAR FILTRATION 2020-09-19 09:42:00 Kimberlee Blackmon MD RATE ANION GAP 2020-09-19 09:42:00 Kimberlee Blackmon MD rson TMP HIV 1/2 AG&AB PATH 2020-09-19 09:42:00 Swapnil Rose MD INTERP POC GLUCOSE SCREEN 2020-09-19 04:35:00 Kristina Blake MD on POC GLUCOSE SCREEN 2020-09-19 02:27:00 Kristina Blake MD on CT CHEST PULMONARY 2020-09-19 02:13:20 Jose Luis Martínez MD Dereck son EMBOLISM W CONTRAST MRI BRAIN W WO CONTRAST 2020-09-19 01:44:00 Kimberlee Blackmon MD INFECTIOUS DISEASE 2020-09-18 19:25:00 Jose Luis Martínez MD Dereck son GROUPING CMV ANTIBODY IGG AND IGM 2020-09-18 19:25:00 Jose Luis Martínez MD CMV ANTIBODY IGG AND IGM 2020-09-18 19:25:00 Jose Luis Martínez MD PATH REVIEW SERUM CREATININE 2020-09-18 19:25:00 Jose Luis Martínez MD BLOOD UREA NITROGEN 2020-09-18 19:25:00 Jose Luis Martínez MD rsaldo MAGNESIUM LEVEL 2020-09-18 19:25:00 Jose Luis Martínez [...] CREATININE 2020-09-18 19:25:00 Jose Luis Martínez MD Andprabhjoto n .GLOMERULAR FILTRATION 2020-09-18 19:25:00 Jose Luis Martínez MD nderson RATE HIV-1 DNA AND RNA QUAL PCR 2020-09-18 19:25:00 Jose Luis Martínez MD HIV-1/2 ANTIGEN AND 2020-09-18 19:25:00 Jose Luis Martínez MD Jay rson ANTIBODIES, FOURTH GENERATION RAPID PLASMA REAGIN [...] MD nderson W/CONFIRM HEPATITIS C VIRUS AB 2020-09-18 15:37:00 Jose Luis Martínez MD And erson SCREEN W/REFLEX HCV PCR HTLV I/II AB SCREEN WITH 2020-09-18 15:37:00 Jose Luis Martínez CONFIRM POC GLUCOSE SCREEN 2020-09-18 13:08:00 Kristina Blake MD on COMPLETE BLOOD COUNT W/ 2020-09-18 06:24:00 [...] MD Jay rson PHOSPHORUS LEVEL 2020-09-18 06:24:00 Kimberlee Blackmon MD And erson FRACTIONATED BILIRUBIN 2020-09-18 06:24:00 Kimberlee Blackmon MD ALBUMIN LEVEL 2020-09-18 06:24:00 Kimberlee Blackmon MD Jay rson CALCIUM LEVEL TOTAL 2020-09-18 06:24:00 Kimberlee Blackmon MD MAGNESIUM LEVEL 2020-09-18 06:24:00 Kimberlee Blackmon MD Jay rson ALANINE AMINOTRANSFERASE 2020-09-18 06:24:00 Kimberlee Blackmon MD ASPARTATE AMINOTRANSFERASE 2020-09-18 06:24:00 Kimberlee Blackmon MD ALKALINE PHOSPHATASE 2020-09-18 06:24:00 Kimberlee Blackmon MD Results CBC 2020-09-18 06:24:00 Kimberlee Blackmon MD Jay rson MANUAL DIFFERENTIAL 2020-09-18 06:24:00 Kimberlee Blackmon MD SERUM CREATININE 2020-09-18 06:24:00 Kimberlee Blackmon MD And erson .GLOMERULAR FILTRATION 2020-09-18 06:24:00 Kimberlee Blackmon MD RATE ANION GAP 2020-09-18 06:24:00 Kimberlee Blackmon MD Jay rson XR CHEST 1 VW POST IMPLANT 2020-09-18 06:12:15 Kristi Campos ECHOCARDIOGRAM 2D COMPLETE 2020-09-17 21:14:08 Kimberlee Blackmon MD TYPE AND SCREEN 2020-09-17 19:19:00 Kimberlee Blackmon MD Jay rson ABORH 2020-09-17 19:19:00 Kimberlee Blackmon MD Jay rson ANTIBODY SCREEN 2020-09-17 19:19:00 Kimberlee Blackmon MD Jay rson COMPLETE BLOOD COUNT W/ 2020-09-17 19:19:00 Kristina Blake MD DIFFERENTIAL COMPREHENSIVE METABOLIC 2020-09-17 19:19:00 Kristina Blake MDon PANEL MAGNESIUM LEVEL 2020-09-17 19:19:00 Kristina Blake MD PHOSPHORUS LEVEL 2020-09-17 19:19:00 Kristina Blake MD LACTATE DEHYDROGENASE 2020-09-17 19:19:00 Kristina Blake MD And erson Results CBC 2020-09-17 19:19:00 Kristina Blake MD MANUAL DIFFERENTIAL 2020-09-17 19:19:00 Kristina Blake MD GLUCOSE LEVEL 2020-09-17 19:19:00 Kristina Blake MD BLOOD UREA NITROGEN 2020-09-17 19:19:00 Kristina Blake MD ELECTROLYTE PANEL 2020-09-17 19:19:00 Kristina Blake MD SERUM CREATININE 2020-09-17 19:19:00 Kristina Blake MD .GLOMERULAR FILTRATION 2020-09-17 19:19:00 Kristina Blake MDson RATE CALCIUM LEVEL TOTAL 2020-09-17 19:19:00 Kristian Blake MD Dereck son ALBUMIN LEVEL 2020-09-17 19:19:00 Kristina Blake MD ALKALINE PHOSPHATASE 2020-09-17 19:19:00 Kristina Blake MD Jay rson ALANINE AMINOTRANSFERASE 2020-09-17 19:19:00 Kristina Blake MD ASPARTATE AMINOTRANSFERASE 2020-09-17 19:19:00 Kristina Blake TOTAL PROTEIN 2020-09-17 19:19:00 Kristina Blake MD FRACTIONATED BILIRUBIN 2020-09-17 19:19:00 Kristina Blake MD derson CLOT EXPIRATION DATE 2020-09-17 19:19:00 Kimberlee Blackmon MD TMP INTERPRETATION 2020-09-17 19:19:00 Kimberlee Blackmon MD nderson ANTIBODY SCREEN NEGATIVE CONFIRM ABORH TYPE 2020-09-17 19:16:00 Kristina Blake MD on INFLUENZA A/B + COVID-19 2020-09-17 18:42:00 Nolvia Robison MD ASYMPTOMATIC-L EKG, 12-LEAD (PORTABLE) 2020-09-17 00:00:00 Kimberlee Blackmon MD PETCT INITIAL TREATMENT 2020-09-16 16:58:09 Jesenia Mays MD STRATEGY Tony POC GLUCOSE SCREEN 2020-09-16 15:12:00 Jesenia Mays MD Jay rson Tony US HEAD NECK SOFT TISSUE 2020-09-10 19:51:20 Jesenia Mays US FINE NEEDLE ASPIRATION 2020-09-10 19:51:20 Jesenia Mays MD US GUIDED SOFT TISSUE 2020-09-10 19:51:20 Jesenia Mays MD nderson BIOPSY [place] PATHOLOGY BIOPSY 2020-09-10 18:52:00 Jesenia Mays MD on INTERPRETATION [place] CYTOLOGY IMAGE-GUIDED FNA 2020-09-10 17:14:00 Jesenia Mays MD INTERPRETATION [place] HP CYTOGENETICS BLOOD 2020-09-10 16:53:00 Nimo Keita MD And erson COLLECTION HP CG MYC IGH CEP8 FISH 2020-09-10 16:53:00 Nimo Keita MDrson INTERPRETATION AND REPORT HP CYTOGENETICS BLOOD 2020-09-10 12:17:00 Nimo Keita MD And erson COLLECTION HP CG IGH/BCL2 T(14;18) 2020-09-10 12:17:00 Nimo Keita MDrson TISSUE FISH INTERPRETATION AND REPORT HP CG MYC TISSUE FISH 2020-09-10 12:17:00 Nimo Keita MD And erson INTERPRETATION AND REPORT HEPATITIS C VIRUS ANTIBODY 2020-09-09 16:05:00 Jesenia Mays MD HEMOGLOBIN A1C 2020-09-09 16:05:00 Jesenia Mays MD HEPATITIS C VIRUS AB 2020-09-09 16:05:00 Jesenia Mays MD derson SCREEN W/REFLEX HCV PCR [place] HEPATITIS C VIRUS RNA 2020-09-09 16:05:00 Jesenia Mays MD DETECT/QUANT, SERUM Tony COVID-19 (SARS-COV-2) 2020-09-05 18:36:00 Sheng Alfaro MD And bijan PCR-ASYMPTOMATIC MC COVID-19 (ID NOW RAPID 2020-01-29 16:36:00 Nicole Cheek [facility] 2019-09-19 05:01:00 Doctor Unassigned, No [facility] Name [facility] DME/SUPPLY JUSTIFICATION 2019-07-17 05:01:00 Doctor Unassigned, No [facility] Repair of knee collateral 1973-03-27 00:00:00 Me morial Ty ligaments Plan of Care Planned Activity Planned Date Details Comments Source Future Scheduled Test 1960 00:00:00 COVID-19 Vaccination MD Barrientos (1) [code = COVID-19 Vaccination (1)] Encounters Start End Encounter Admission Attending Care Care Encounter Source Date/Time Date/Time Type Type Clinicians Facility Department ID 2021-01-02 Inpatient ANGELES, [facility] Surgery [id number] [facility] 11:38:46 NINA 2021-01-02 Inpatient ER CATARINO, [facility] Cardiac ICU [id number] 11:38:15 [facility] 2020-10-27 Inpatient EL HAYDEN, MDA MDA [id number] 11:50:29 [facility] 2020-10-19 Outpatient SYSTEM, MDA MDA [id number] 07:44:13 PROVIDER Herman o geremias 2020-09-25 Outpatient PISIMISIS, MDA Thoracic [id number] 08:45:30 BETH archuleta 2020-09-03 Outpatient SYSTEM, MDA MDA [id number] 11:18:01 PROVIDER Herman archuleta 2021-03-16 2021-03-16 Outpatient RACHEL CHRISTIANSON, MDA MDA [id number] 12:38:06 12:38:06 INDER sherman n 2020-12-23 2020-12-23 Outpatient EL LÓPEZMED, MDA MDA [id number] 06:42:40 09:45:47 ULISSES Warders o geremias 2020-12-16 2020-12-16 Outpatient EL LÓPEZMED, MDA MDA [id number] 07:00:55 07:00:55 ULISSES Warders o geremias 2020-12-07 2020-12-07 Outpatient EL FATMATA, MDA MDA [id number] 23:59:00 23:59:00 JACOB ariaso n 2020-12-07 2020-12-07 Outpatient EL LÓPEZMED, MDA MDA [id number] 09:46:41 09:46:41 ULISSES Warders o geremias 2020-12-03 2020-12-03 Outpatient EL ELISA-[facility] MDA MDA [id number] 10:20:00 23:59:00 Herman DOE 2020-12-02 2020-12-02 Outpatient EL LÓPEZMED, MDA MDA [id number] 06:34:53 10:36:59 ULISSES archuleta 2020-11-25 2020-11-25 Outpatient EL LÓPEZMED, MDA MDA [id number] MD 06:42:26 09:44:59 [facility] Herman o n 2020-11-16 2020-11-16 Outpatient EL NEYMAR, MDA MDA [id number] MD 07:57:28 12:22:47 KIMBERLEEDINORA Warders o n 2020-09-29 2020-11-14 Inpatient ER ESTEFANIA MDA Lymphoma/My [id number] MD 05:35:00 14:35:00 Miguel BORJASo RANDOLPH n 2020-11-10 2020-11-10 Inpatient EL BLAKE, MDA MDA [id number] MD 07:27:45 07:36:25 [facility] Dereck so n 2020-11-10 2020-11-10 Inpatient EL BLAKE, MDA MDA [id number] MD 05:05:38 05:30:57 [facility] Dereck so n 2020-11-03 2020-11-03 Inpatient SARAH, MDA MDA [id number] MD 17:09:05 17:11:49 [facility] Herman o n 2020-11-02 2020-11-02 Inpatient RACHEL COYNE, MDA MDA [id number] MD 09:12:55 11:22:21 CJ Warders o n 2020-10-29 2020-10-29 Inpatient EL HAYDEN, MDA MDA [id number] MD 19:40:38 20:05:18 [facility] Dereck so n 2020-10-29 2020-10-29 Inpatient RACHEL MEJIA, MDA MDA [id number] MD 01:03:56 01:04:07 SUSAN Herman o n 2020-10-27 2020-10-27 Inpatient EL LÓPEZMED, MDA MDA [id number] MD 13:50:26 13:50:31 [facility] Herman o n 2020-10-26 2020-10-26 Inpatient EL LÓPEZMED, MDA MDA [id number] MD 14:48:05 14:48:09 [facility] Herman o n 2020-10-22 2020-10-22 Inpatient RANDOLPH BEAULIEU MDA MDA [id number] MD 20:34:15 21:15:34 Herman o n 2020-10-15 2020-10-15 Inpatient EL AHMED, MDA MDA [id number] 14:20:34 14:20:37 ULISSES Warders o n 2020-10-13 2020-10-13 Inpatient EL LÓPEZMED, MDA MDA [id number] 13:41:07 13:41:09 ULISSES Herman o n 2020-10-10 2020-10-10 Inpatient EL AMANDA, MDA MDA [id number] 14:30:49 14:34:36 KIARA Harden so n 2020-10-05 2020-10-05 Inpatient EL FANG, MDA MDA [id number] 21:05:33 21:30:04 MIGDALIA Dereck so n 2020-09-30 2020-09-30 Inpatient EL FIDENCIO, MDA MDA [id number] 20:34:19 21:12:40 JURGEN Warders o n 2020-09-30 2020-09-30 Inpatient EL CARLOS, MDA MDA [id number] 16:35:16 16:35:21 CHANO Warders o n 2020-09-30 2020-09-30 Inpatient EL RANDOLPH PAYNE MDA MDA [id number] 14:38:47 15:31:40 Herman o n 2020-09-30 2020-09-30 Inpatient EL CARLOS, MDA MDA [id number] 14:21:19 15:31:37 CHANO Warders o n 2020-09-17 2020-09-23 Inpatient EL HAYDEN, MDA Lymphoma/My [id number] 12:22:00 17:54:00 Viniciuser so n 2020-09-23 2020-09-23 Inpatient EL BLAKE, MDA MDA [id number] 17:09:44 17:43:35 PREMINESH Dereck so n 2020-09-23 2020-09-23 Inpatient EL BLAKE, MDA MDA [id number] 17:24:14 17:24:18 PREMINESH Dereck so n 2020-09-23 2020-09-23 Inpatient EL CEM, MDA MDA [id number] 14:55:27 15:19:17 ESTELLA Warders o n 2020-09-18 2020-09-18 Inpatient EL LÓPEZMED, MDA MDA [id number] 20:07:46 20:07:49 ULISSES Sutton o geremias 2020-09-17 2020-09-17 Inpatient RACHEL CAMPOS, MDA MDA [id number] 22:31:02 23:36:29 KRISTI archuleta 2020-09-17 2020-09-17 Inpatient RACHEL BLAKE, MDA MDA [id number] MD 19:51:09 19:51:13 KRISTINA Harden so n 2020-09-16 2020-09-16 Outpatient EL SARAH, MDA MDA [id number] 12:54:09 16:41:32 ULISSES Sutton o geremias 2020-09-16 2020-09-16 Outpatient EL DOMINIC SON, MDA MDA [id number] 10:58:41 10:58:41 SHENG archuleta 2020-09-16 2020-09-16 Outpatient RACHEL MAYS, MDA MDA [id number] 09:08:16 09:08:16 JESENIA archuleta 2020-09-15 2020-09-15 Outpatient EL ZEINAB, MDA MDA [id number] 18:51:00 23:59:00 NAS archuleta 2020-09-15 2020-09-15 Outpatient EL ZEINAB, MDA MDA [id number] 18:38:00 18:50:00 NAS archuleta 2020-09-11 2020-09-11 Emergency ER [facility] Emergency [id number] [facility] 09:39:00 09:39:00 2020-09-07 2020-09-07 Emergency ER [facility] Emergency [id number] [facility] 13:22:00 13:22:00 2020-09-07 2020-09-07 Outpatient RACHEL ALFARO JR, MDA MDA [id number] 12:27:14 12:27:14 SHENG archuleta 2020-09-07 2020-09-07 Outpatient EL MDA MDA [id number] 12:21:08 12:21:08 Herman archuleta 2020-09-05 2020-09-05 Outpatient RACHEL JULIANITZA, MDA MDA [id number] 13:30:27 13:43:02 ANGELO archuleta 2020-08-18 2020-08-18 Outpatient [facility] [id number] 2020-08-17 2020-08-17 Outpatient [facility] [id number] [facility] 2020-08-13 2020-08-13 Outpatient [facility] [id number] [facility] 2020-07-13 2020-07-13 Outpatient [facility] [id number] [facility] 2020-06-19 2020-06-19 Outpatient [facility] [id number] [facility] 2020-05-08 2020-05-08 Outpatient [facility] [id number] [facility] 2020-05-01 2020-05-01 Outpatient [facility] [id number] [facility] 2020-04-29 2020-04-29 Outpatient [facility] [id number] [facility] 2020-04-15 2020-04-15 Outpatient [facility] [id number] [facility] 2020-03-02 2020-03-02 Outpatient [facility] [id number] [facility] 2020-02-13 2020-02-13 Outpatient [facility] [id number] [facility] 2020-01-30 2020-01-30 Outpatient R [facility] [id number] Univers 14:00:00 14:00:00 ity [facility] 2020-01-30 2020-01-30 Outpatient R GARRY [facility] [id number] Univers 14:00:00 14:00:00 AFIA ity [facility] 2020-01-29 2020-01-29 Outpatient R [facility] [id number] Univers 12:15:00 12:15:00 ity of [facility] 2020-01-29 2020-01-29 Outpatient R NICOLE CHEEK [facility] 10 [id number] Univers 12:15:00 12:15:00 NICOLE CHEEK i ty of [facility] 2020-01-29 2020-01-29 Laboratory Only, [facility] Test [facility] [id number]. [id number] Univers 10:22:41 10:37:41 Only Nicole Cheek Lando [id number] ity [facility] [id number] [facility] [phone] [address] 2020-01-29 2020-01-29 Laboratory Only, [facility] [id number] 10:22:41 10:37:41 Only Test Lando [id number] [place] [id number] [place] [phone] [facility] 2020-01-28 2020-01-28 Outpatient [facility] [id number] Univers 14:30:00 14:30:00 ity [facility] 2020-01-27 2020-01-27 Outpatient R [facility] [id number] Univers 09:45:00 09:45:00 ity [facility] 2020-01-27 2020-01-27 Outpatient R NICOLE CHEEK [facility] 10 [id number] Univers 09:45:00 09:45:00 NICOLE CHEEK i ty of [facility] 2020-01-21 2020-01-21 Outpatient [facility] [id number] [facility]00 Kristine Epps ent Clinics 2020-01-21 2020-01-21 Outpatient [facility] [id number] [facility] 00[facility]00 Kristine Castro [facility] 2020-01-10 2020-01-10 [facility] [id number] Univers 00:00:00 00:00:00 Nicole Iglesias [id number] [id number] [phone] [place] [address] 2020-01-10 2020-01-10 [facility] [id number] 00:00:00 00:00:00 Nicole Iglesias [id number] [place] [id number] Professio [phone] [address] 2019-10-11 2019-10-11 Outpatient R NICOLE CHEEK [facility] [id number] Univers 10:40:00 10:40:00 NICOLE CHEEK [id number] i ty of [facility] 2019-10-11 2019-10-11 Outpatient R NICOLE CHEEK [facility] 10 [id number] Univers 10:40:00 10:40:00 NICOLE CHEEK i ty of [facility] 2019-09-19 2019-09-19 Orders Doctor ZAVALA [id number] Univers 00:00:00 00:00:00 Only Unassigned, SAMANTHA [id number] ity of [place] [facility] [id number] [place] [phone] [address] 2019-08-29 2019-08-29 Outpatient R NICOLE CHEEK [facility] [id number] Univers 11:40:00 11:40:00 NICOLE CHEEK [id number] i ty of [facility] 2019-07-17 2019-07-17 Orders Doctor ZAVALA [id number] Univers 00:00:00 00:00:00 Only Unassigned, SAMANTHA [id number] ity of [place] [facility] [id number] [place] [phone] [address] 2019-07-11 2019-07-11 Outpatient R ELAINA CHEEKMNGeremias [facility] [id number] Univers 10:40:00 10:40:00 NICOLE CHEEK [id number] i ty of [facility] 2019-07-11 2019-07-11 Outpatient R NICOLE CHEEK [facility] [id number] Univers 10:40:00 10:40:00 NICOLE CHEEK i ty of [facility] 2019-07-11 2019-07-11 [facility]ici [facility] [id number] Univers 08:05:50 08:25:50 ne Visit Nicole Iglesias [id number] [id number] [phone] [address] 2019-04-25 2019-04-25 Office [facility] [id number] [place] [address] 11:25:55 14:54:38 Visit Nicole Iglesias [id number] [id number] [phone] [address] 2019-04-25 2019-04-25 Telephone [facility] [id number] Univers 00:00:00 00:00:00 Nicole Iglesias [id number] [id number] [phone] [address] 2018-12-06 2018-12-06 Office [facility] [id number] [facility] 09:26:39 10:12:15 Visit Nicole Iglesias [id number] [id number] [phone] [address] 2018-08-31 2018-08-31 Telephone [facility] [id number] [facility] 00:00:00 00:00:00 Nicole Sw[place] [id number] [id number] [phone] [address] 2018-01-16 2018-01-18 Outside null[facility]avo [facility] [id number] 18:43:00 04:59:59 Medical r Cardiology 00 l Records [facility] Rafat 2016-06-15 2016-07-01 Inpatient [facility] [id number] [place] 18:52:00 00:05:00 r Ty 81 l [facility] Results Test Description Test Time Test Comments Results Result Comments Source AFB Culture w/Smear 2020-12-11 01:41:50 Test Item Value Reference Range Interpretation Comme nts Final Report (test code = 8488) Acid fast bacilli isolatedIdentific ation 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 The sequencing procedure was developed and itsperformance characteristics determined by [facility] microbiology laboratory. It has not been cleared orapproved by the [place]. Food and Drug Administration Path Review - AFB (test code = 8477) The results have been reviewed and A electronically signed by Pathologist:BRIAN MCCALL MD #[id number] Acid Fast Stain Truant (test code = No Acid Fast Bacilli [place] smear A 11101-6) DARCI (test code = DARCI) And RUL Lab Interpretation (test code = Abnormal 21769-5) MD Francisco [id number] 19:30:21 Test Item Value Reference Range Interpretation Comments Final Report (test No growth code = 8488) Path Review - Immunity and antibiotic Bottle/Isolator use may render culture (test code = 8499) negative. Ongoing infection requires repeat culture. The results have been reviewed and electronically signed by Pathologist:Mary Last MD, PhD #[id number] DARCI (test code = From PICC line please DARCI) MD Barrie[id number] 14:25:51 Test Item Value Reference Range Interpretation Comments Total Cells (test code 115 = 7642) Neutrophil % (test 82.0 % 42.0-66.0 H The Neutr ophil count code = 6491) includes Bands. Lymphocyte % (test 2.0 % 24.0-44.0 L code = 6194) Monocyte % (test code 11.0 % 2.0-7.0 H = 6422) Metamyelocyte % (test 5.0 % See_Comment H The Ks tamyelocyte code = 6399) count includes Myelocytes. [Automated mess age] The system [employer] generated this result transmitted ref erence range: <=0.0. T he reference range was not used to int erpret this result as normal/abnormal . NRBC (test code = 1.0 See_Comment H [Automate d message] 6472) The system SureFire generated this result transmitted ref erence range: <=0.0. T he reference range was not used to int erpret this result as normal/abnormal . Neutrophil Abs (test 18.61 K/uL 1.70-7.30 H code = 6492) Lymphocyte Abs (test 0.45 K/uL 1.00-4.80 L code = 6195) Monocyte Abs (test 2.50 K/uL 0.08-0.70 H code = 6423) RBC Morph (test code = Present Normal A 6942) Spherocyte (test code Few Not Seen A = 7375) Anisocytosis (test Present Not Present A code = 4811) Ovalocyte (test code = Present Not Present A 4984) Tear Drop (test code = Present Not Present A 8602) Slide Comments (test See Note A Platele t morphology code = 5447) normal. Lab Interpretation Abnormal (test code = 58328-4) MD Barrientos.[id number] 14:25:49 Test Item Value Reference Range Interpretation Comments WBC (test code = 22.7 K/uL 4.0-11.0 H 6690-2) RBC (test code = 789-8) 2.92 See_Comment L [Au tomated message] The system SureFire generated this result transmitted ref erence range: 4.50 - 6 .00 M/uL. The refer ence range was not u sed to interpret this result as normal/abnor mal. Hgb (test code = 718-7) 8.7 See_Comment L [Au tomated message] The system SureFire generated this result transmitted ref erence range: 14.0 - 1 8.0 gm/dL. The refe rence range was not u sed to interpret this result as normal/abnor mal. Hct (test code = 26.6 % 40.0-54.0 L 4544-3) MPV (test code = 787-2) 10.6 fL 4.0-10.4 H MCH (test code = 785-6) 29.8 pg 27.0-31.0 MCHC (test code = 32.7 See_Comment [Automate d message] 786-4) The system SureFire generated this result transmitted ref erence range: 31.0 - 3 6.0 gm/dL. The refe rence range was not u sed to interpret this result as normal/abnor mal. RDW-SD (test code = 55.0 fL 35.1-46.3 H 35910-2) RDW-CV (test code = 16.5 % 12.0-15.5 H 788-0) Platelet count (test 136 K/uL 140-440 L code = 777-3) INRBC (test code = 0.0 % See_Comment The INRBC (instrument 5974) NRBC) value ref lects the enumeration of nucleated red b lood cells contained in a 200uL sampleof whole blood analyzed by the instrument. Thi s value maydiffer from the NRBC value reported in a m anual differential,wh ich is based on a 100 cell differential. [Automated mess age] The system SureFire generated this result transmitted ref erence range: <=0.0. T he reference range was not used to int erpret this result as normal/abnormal . Lab Interpretation Abnormal (test code = 03342-9) MD BarrientosElectrolyte [id number] 09:16:35 Test Item Value Reference Range Interpretation Comments Sodium Lvl (test code = 140 See_Comment [Au tomated message] 1038) The system SureFire generated this result transmitted ref erence range: 136 - 14 5 mEq/L. The refe rence range was not u sed to interpret this result as normal/abnor mal. Potassium Lvl (test code 4.2 See_Comment [A utomated message] = 1478) The system SureFire generated this result transmitted ref erence range: 3.5 - 5. 1 mEq/L. The refe rence range was not u sed to interpret this result as normal/abnor mal. Chloride (test code = 100 See_Comment [Auto mated message] 5058) The system SureFire generated this result transmitted ref erence range: 98 - 107 mEq/L. The refe rence range was not u sed to interpret this result as normal/abnor mal. CO2 (test code = 5227) 30 See_Comment H [Aut omated message] The system SureFire generated this result transmitted ref erence range: 22 - 29 mEq/L. The reference r louis was not used to interpret this result as normal/abnor mal. Anion Gap (test code = 10 See_Comment [Aut omated message] 2588) The system SureFire generated this result transmitted ref erence range: 4 - 14 m Eq/L. The reference r louis was not used to interpret this result as normal/abnor mal. Lab Interpretation (test Abnormal code = 94639-1) MD BarrientosFractionated Udkhqueoc7893-42-55 09:16:34 Test Item Value Reference Range Interpretation Comments Bili Total (test 0.4 mg/dL See_Comment Indocyanine Green (ICG) code = 5096) may cause false ly elevated biliru bin results. Total and direct bilirubin must not be measured from s amples containing indo cyanine green. False el evation of total bilirubin can be seen in patient s with IgG concentrations above 28 g/L. [Automate d message] The system SureFire generated this result transmitted ref erence range: [...] result as normal/abnormal . 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 Caution should be exercised when interpreting bentley ch values and done in conjunction wit h clinical contex t. Lab Interpretation (test Abnormal code = 69304-6) MD BarrientosGlomerular Filtration [id number] 09:16:30 Test Item Value Reference Range Interpretation Comments eGFR-AA (test code = 28 See_Comment L Normal eGFR: >= 60 8062) mL/min/1.73 m2N ote: The eGFR is michael culated using the CKD-E PI equation. The e GFR declines with a ge. eGFR <60 mL/min /1.73 m2 is considere d as "decreased". Th is equation should only be used for pat ients 18 and older. According to th e [employer] Kidney [employer]'s dney Disease Outcome Quality Initiat rere (KDOQI) classif ication and 2012 Kidney Disease Improvi ng Global Outcomes (KDIGO) Clinica l Practice Guidel ine, the stage of CK D should be categ orized based on estima jigar GFR. Stage Desc ription GFR mL/mi n/1.73 m21 Normal or h igh GFR >=902 Mildly decreased GFR 60-893a M ildly to moderately decreased GFR 45-593b Moderat zara to severely decrea sed GFR 30-444 Nora rely decreased GFR 15-295 Kidney f ailure <15 [Auto mated message] The sy stem which generated this result transmit jigar reference range : >=60 mL/min/1.73 sq. m. The reference range was not used to int erpret this result as normal/abnormal . eGFR-CHRISS (test code = 24 See_Comment L Normal eGFR: >= 60 8063) mL/min/1.73 m2N ote: The eGFR is michael culated using the CKD-E PI equation. The e GFR declines with a ge. eGFR <60 mL/min /1.73 m2 is considere d as "decreased". Th is equation should only be used for pat ients 18 and older. According to th e National Kid[employer]'s dney Disease Outcome Quality Initiat rere (KDOQI) classif ication and 2011 Kidney Disease Improvi ng Global Outcomes (KDIGO) Clinica l Practice Guidel ine, the stage of CK D should be categ orized based on estima jigar GFR. Stage Desc ription GFR mL/mi n/1.73 m21 Normal or h igh GFR >=902 Mildly decreased GFR 60-893a M ildly to moderately decreased GFR 45-593b Moderat zara to severely decrea sed GFR 30-444 Nora rely decreased GFR 15-295 Kidney f ailure <15 [Auto mated message] The sy stem which generated this result transmit jigar reference range : >=60 mL/min/1.73 sq. m. The reference range was not used to int erpret this result as normal/abnormal . Lab Interpretation Abnormal (test code = 00672-8) MD BarrientosCalcium [id number] 09:16:29 Test Item Value Reference Range Interpretation Comments Calcium Lvl (test code = 5258) 8.3 mg/dL 8.4-10.2 L Lab Interpretation (test code = Abnormal 04027-2) MD BarrientosUric Ljpy4628-03-15 09:16:28 Test Item Value Reference Range Interpretation Comments Uric Acid (test code = 7955) 8.5 mg/dL 3.4-7.0 H Lab Interpretation (test code = Abnormal 16706-9) MD BarrientosAlbumin [id number] 09:16:27 Test Item Value Reference Range Interpretation Comments Albumin Lvl (test code = 3.1 See_Comment L [A utomated message] 6430) The system [employer] h generated this result transmitted ref erence range: 3.5 - 5. 2 gm/dL. The refe rence range was not u sed to interpret this result as normal/abnor mal. Lab Interpretation (test Abnormal code = 35237-4) MD BarrientosTotal Kogyckj4326-00-06 09:16:26 Test Item Value Reference Range Interpretation Comments Total Protein (test code = 7649) 6.2 g/dL 6.4-8.3 L Lab Interpretation (test code = Abnormal 10061-5) MD BarrientosAspartate Bpelibipunviffgr5095-52-42 09:16:25 Test Item Value Reference Range Interpretation Comments AST (test code = 19 U/L See_Comment [Automated message] The 8024) system which ge nerated this result transmit jigar reference range : <=40. The reference range was not used to interpr et this result as sonido l/abnormal. MD BarrientosMagnesium Quyvf9040-05-72 09:16:24 Test Item Value Reference Range Interpretation Comments Magnesium (test code = 6359) 1.8 mg/dL 1.6-2.6 MD BarrientosAlkaline [id number] 09:16:22 Test Item Value Reference Range Interpretation Comments Alk Phos (test code = 4768) 249 U/L 40-129 H Lab Interpretation (test code = Abnormal 04616-7) MD BarrientosGlucose [id number] 09:16:21 Test Item Value Reference Range Interpretation Comments Glucose Level (test 93 mg/dL 70-99 Effectiv e 10/21/15, the code = 5699) glucose referen ce intervals have been updated based o n [place] [employer] tia delines (Standards of M edical Care in Diabete s 2016. Diabetes Care 2 016; 39: S13-S22).Fastin g blood glucose:Normal: 70-99 mg/dLImpaired f asting glucose (increa sed risk for diabetes or pre-diabetes): 100-125 mg/dLDiabetes m ellitus: >/=126 mg/dL Ra ndom blood glucose:N ormal: 70-199 mg/dLNot e: Random glucose >100 mg /dL is associated with increased risk for diabetes MD BarrientosOxrzkifcILB6769-66-54 09:16:20 Test Item Value Reference Range Interpretation Comments ALT (test code = 16 U/L See_Comment [Automated message] The 8776) system which ge nerated this result transmit jigar reference range : <=41. The reference range was not used to interpr et this result as sonido l/abnormal. MD Barrientos.Serum Vuhumvdpvz3974-32-56 09:16:19 Test Item Value Reference Range Interpretation Comments Creatinine (test code = 5399) 2.53 mg/dL 0.67-1.17 H Lab Interpretation (test code = Abnormal 27600-9) MD Ba[id number] 09:16:18 Test Item Value Reference Range Interpretation Comments BUN (test code = 5055) 29 mg/dL 6-23 H Lab Interpretation (test code = Abnormal 32756-8) MD BarrientosVRE [id number] 14:30:01 Test Item Value Reference Range Interpretation Comments Final Report (test No Vancomycin resistant code = 8488) Enterococci isolated Path Review - VRE VRE absent or below limits (test code = 8485) of detection....The results have been reviewed and electronically signed by Pathologist:Jonathon Bethea MD, PhD #[id number] MD Cohen Respiratory Culture w/Gram [id number] 14:14:20 Test Item Value Reference Range Interpretation Comments Final Report (test code Moderate Yeast A = 8488) isolated Path Review (test code = Yeast is a component A 8492) of upper respiratory/oral jesse and may NOT be clinically significant. Recommend clinical correlation BEFORE requesting additional workup....The results have been reviewed and electronically signed by Pathologist:Jonathon Bethea MD, PhD #[id number] Gram Stain Report (test Few WBC's seenNo A code = 54266-9) organisms seen. Lab Interpretation (test Abnormal code = 97193-6) MD BarrientosTMP Interpretation Antibody Screen [id number] 12:43:39 Test Item Value Reference Range Interpretation Comments TMP Auto Neg At the present ABSC Interp time, patient (test code = plasma shows no YAS ROMERO 7535) evidence of RBC DION,Dic tated by: alloantibodies. MANUELA ASHLEY,Nivia ed Date/Time: 10.26 7:43 AM CDT Transcribed Marck e/Time: 11.13.2020 7:43 AM CDTElectronical ly Signed By: YAS ASHLEY, on 11.13.2020 7:43 AM C MD BarrientosAntibody [id number] 12:34:14 Test Item Value Reference Range Interpretation Comments ABSC. (test code = 890-4) Negative ABSC MD BarrientosZzpnvzfkIGUGt3567-71-34 12:34:13 Test Item Value Reference Range Interpretation Comments ABORh. (test code = 882-1) A POS MD BarrientosClot Expiration [id number] 12:34:08 Test Item Value Reference Range Interpretation Comments T & S Expiration (test code = 11/16/2020 5318) MD BarrientosPartial Thromboplastin [id number] 09:28:40 Test Item Value Reference Range Interpretation Comments aPTT (test code = 6773) 43.1 See_Comment H [Au tomated message] The system SureFire generated this result transmitted ref erence range: 24.7 - 3 6.8 second(s). The reference range was not used to int erpret this result as normal/abnormal . Lab Interpretation (test Abnormal code = 91784-4) MD BarrientosProthrombin Time with [id number] 09:28:39 Test Item Value Reference Range Interpretation Comments PT (test code = 6746) 16.1 See_Comment H [Auto mated message] The system SureFire generated this result transmitted ref erence range: 11.5 - 1 3.9 second(s). The reference range was not used to int erpret this result as normal/abnormal . INR (test code = 5973) 1.40 0.90-1.10 H Lab Interpretation (test Abnormal code = 23672-6) MD BarrientosUrea Nitrogen [id number] 23:22:37 Test Item Value Reference Range Interpretation Comments U Urea (test code = 436 mg/dL Normal r louis not 7820) available for c ollections less than 24 ho urs in duration. MD BarrientosCreatinine [id number] 23:22:36 Test Item Value Reference Range Interpretation Comments U Creatinine (test 101.0 mg/dL 40.0-278.0 The refer ence range code = 7725) listed is for f irst morning urine collection. MD BarrientosSodium [id number] 23:22:35 Test Item Value Reference Range Interpretation Comments U Sodium (test code = 28 mEq/L Normal range not available 7809) for collections less than 24 hours in [facility] emergency department. MD BarrientosAlbumin Level [id number] 23:19:07 Test Item Value Reference Range Interpretation Comments Urine Albumin (test 3.20 mg/dL Normal r louis note code = 9375) available for collections les s than 24 hours i n duration. U Creatinine (test code 99.7 mg/dL 40.0-278.0 The reference range = 7725) listed is for f irst morning urine collection. Albumin/Creatinine 32 mg/g See_Comment H Reference interval: Ratio (ACR) (test code <30 m g/g = 9377) Interpretive comment: The presence of increased urina ry albumin excreti on (albuminuria) i s a clinically sens itive and predictive indicator of [facility] kidney disease. Albuminuria is determined by urinary albumin to creatinine rati o (UACR) in a ran dom spot urine or a 24-hour collect ion. Normal: <30 mg/gModerately increased: 30-3 00 mg/gSeverely increased: >300 mg/g [Automated mes eva] The system SureFire generated this result transmit jigar reference range : <=29. The refer ence range was not u sed to interpret th is result as normal/abnormal . Lab Interpretation Abnormal (test code = 11822-4) MD BarrientosProtein/Creatinine Ratio [id number] 23:19:06 Test Item Value Reference Range Interpretation Comments UTP Ran (test code = 23 mg/dL Normal range not 7922) available for collections les s than 24 hours i n duration. U Creatinine (test code 99.7 mg/dL 40.0-278.0 The reference range = 7725) listed is for f irst morning urine collection. U Prot/Creat (test code 0.23 g/g See_Comment H [Au tomated message] = 8855) The system SureFire generated this result transmit jigar reference range : <=0.14. The reference range was not used to interpret this result as normal/abnormal . Lab Interpretation Abnormal (test code = 33232-3) MD BarrientosUrinalysis with [id number] 22:56:40 Test Item Value Reference Interpretation Comments Range UA WBC (test code = 5 See_Comment H [Automa jigar 7904) message] The system which generated this result transmitted reference range : 0 - 2 /HPF. The reference range was not used to interpret this result as normal/abnormal . UA RBC (test code = 1 See_Comment [Automa jigar 7891) message] The system which generated this result transmitted reference range : 0 - 2 /HPF. The reference range was not used to interpret this result as normal/abnormal . UA Mucous (test code NOT SEEN Not Seen-Trace = 7887) /HPF UA Bacteria (test OCC NOT SEEN /HPF code = 7870) UA Squam Epi (test OCC None-Occasiona code = 7896) l /HPF UA Yeast (test code 1+ NOT SEEN /HPF A = 7908) DARCI (test code = Some reporting DARCI) parameters within the Urinalysis test have changed due to the implementation of new instrumentation in the [facility], allowing greater sensitivity of measurement. Urinalysis results reported by the [facility] using existing instrumentation, as well as Urinalysis testing performed manually or by backup methodology at the [facility] will remain relatively unchanged. New reporting parameters and units will now be reported for all campuses. Lab Interpretation Abnormal (test code = 46200-3) MD BarrientosUrinalysis w/Microscopic if [id number] 22:48:43 Test Item Value Reference Range Interpretation Comments UA Color (test code = 7877) Yellow Straw-Yellow UA Appear (test code = 7868) Clear Clear UA Glucose (test code = 7881) NEG NEG mg/dL UA Bili (test code = 7871) NEG NEG UA Ketones (test code = 7884) NEG NEG mg/dL UA Spec Grav (test code = 7894) 1.011 1.003-1.035 UA Blood (test code = 7872) NEG NEG UA pH (test code = 7909) 6.0 5.0-9.0 UA Protein (test code = 7890) NEG NEG mg/dL UA Urobilinogen (test code = 7903) NEG NEG UA Nitrite (test code = 7888) NEG NEG UA Leuk Est (test code = 7886) Small NEG A Lab Interpretation (test code = Abnormal 20848-4) MD BarrientosTMP Interpretation [id number] 22:06:30 Test Item Value Reference Range Interpretation Comments TMP XM Interp RBC units (test code = crossmatched for 7566) transfusion appear ___MANUELA rhodes. Nivia ASHLEY ed by: Nivia NEAL ed Date/Time: 11.11.2020 17:0 6 PM CDT Transcrib ed Date/Time: 11.11.2020 17:0 6 PM CDTElectronical ly Signed By: YAS ASHLEY, on 11.11.2020 17:0 6 PM MD AndersonPrepare RBC:G15 NE, 1 [id number] 19:07:08 Test Item Value Reference Range Interpretation Comments PRBC Product Ready 1 Red Blood Cells (test code = Available - 51494-6) Order Form 03 when ready for product issue. Unit Number (test [id number] code = 7002) Product Code (test [id number] code = 7003) Unit Expiration [id number] (test code = 556407) Unit Blood Type 6200 (test code = 7004) Product Code Text RBCIRLR CPD AS1 (test code = 500mL ) Crossmatch [id number] Expiration Date (test code = 377041) Unit Irradiated IRRADIATED (test code = 735889) Dispense Status ISSUED (test code = 7001) Unit Blood Type A Positive (test code = 7005) Product Client Leader .BPAM ____ Location (test ___ code = 767717) ___ ____ MD BarrientosRBC Product Ready for Pick [id number] 13:49:44 Test Item Value Reference Range Interpretation Comments PRBC Product Ready B2 Blood Bank Product is ready for for Client Leader (test turkey picker on October code = 191092) 2020 08:4 4:54 CDT. MD BarrientosCOVID-19 (SARS-CoV-2) PCR-Asymptomatic [id number] 07:02:50 Test Item Value Reference Range Interpretation Comments COVID19 (SARS Not Detected Not Detected This test is a CoV-2) Result qualitative (test code = reverse-transcr iptase 75055-8) polymerase kerry n reaction (RT-PC R) developed for t he Tania MELISSA 680 0 system and inte nded for the [...] were verified by the Microbiology Laboratory at [facility] [place], CLIA Accreditation # : [id number] and CAP Accreditation # : [id number]. Result s must be interpreted within the [...] te sting if clinically indicated. 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 [facility] Ovcnpj0089-80-06 16:17:06 Test Item Value Reference Range Interpretation Comments Peripheral Smear (test code = 4273) DRSHUNG LOVE [facility] Glucose [id number] 04:39:40 Test Item Value Reference Interpretation Comments Range POC Glucose (test 144 mg/dL 70-99 H RN Notifie dCapillary code = 50896-0) blood sample s, e.g. obtained by fingerstick, ma y have inaccurate resu lts in patients with decreased perip heral blood flow. Met hod description: Al l results are rea sured using Electroch emistry test methodolog y. The glucose in the sample mixes with the reagents on the test strip. The reac tion produces an tessie ctric current. The am ount of current produce d is proportional to the glucose concent ration in the blood. PO Sample Type (test Capillary code = 9554) Performing Lab (test [facility] code = 41127) [facility] MD Yamilet rowan Clinical Lab, [address] [place] [address], [place], [place] [address]; Team Member: Betsey Johnson MD Lab Interpretation Abnormal (test code = 56895-6) MD BarrientosAngelika Oximetry [id number] 15:03:09 Test Item Value Reference Interpretation Comments Range POC O2 75.8 % Saturation,Venous (test code = 70091) POC Oxyhemoglobin, 73.7 % Venous (test code = 16221) POC Hemoglobin, total 8.8 g/dL 13.5-17.5 L (test code = 60559) POC Carboxyhemoglobin 0.7 % 0.0-1.9 (test code = 64783) POC Methemoglobin 2.0 % 0.0-1.5 H Method sam cription: (test code = 29424) The ABL8 0 FLEX CO-OX OSM analyzer is a portable, autom ated analyzer that measures oxygen saturation (sO2 ), concentration o f total hemoglobi n (ctHb), fractio n of oxygenated hemo globin in total hemogl obin (FO2Hb), fracti on of methemoglobin i n total hemoglobi n (FMetHb), and fraction of carboxyhemoglob in in total hemoglobi n (FCOHb) co-oxim etry parameters in w hole blood. The anal yzer uses spectrophotomet ry to perform quantit ative measurement of the parameters list ed from a 65l sa mple. POC OX Draw Site (test Main pulm art code = 20883) Performing Lab (test MDA Main Main Ca mpus code = 50991) [facility] MD Barrientos Cli nical Lab, [address] [place] [address]; Team Member: Betsey Johnson MD Lab Interpretation Abnormal (test code = 68247-6) MD BarrientosImmature Platelet [id number] 10:14:02 Test Item Value Reference Range Interpretation Comments IPF (test code = 5.9 % 0.8-6.2 5988) DARCI (test code = For patients with DARCI) Platelets lower than 100 k/mm3 MD BarrientosRetic [id number] 10:14:01 Test Item Value Reference Range Interpretation Comments Retic Cnt Auto (test 0.6 % 0.5-1.5 code = 19034-5) RETHE (test code = 37.5 pg 23.2-37.5 6973) IRF (test code = 16.3 % 2.3-18.0 43441-0) DARCI (test code = DARCI) For patients with Platelets lower than 100 k/mm3 MD BarrientosNT-Pro BNP (In-House)2020-10-31 11:01:08 Test Item Value Reference Range Interpretation Comments NT ProBNP (test code = 3919 pg/mL See_Comment H [Aut omated message] 6752) The system SureFire generated this result transmit jigar reference range : <=125. The refe rence range was not u sed to interpret th is result as normal/abnormal . Lab Interpretation Abnormal (test code = 63672-8) MD BarrientosUrine [id number] 21:14:59 Test Item Value Reference Range Interpretation Comments Final Report (test No growth code = 8488) Path Review - Urine The results have been (test code = 8483) reviewed and electronically signed by Pathologist:Mary Last MD, PhD #[id number] MD BarrientosHBV DNA [id number] 00:21:11 Test Item Value Reference Range Interpretation Comments HBV DNA [facility] Undetected Undetected IU/mL Result in log IU/mL is (test code = Undetected. 69581-8) ----ADDITIO NAL INFORMATION---- ----The quantif ication range of this a ssay is 10 to1,000,000,000 IU/mL (1.00 log to 9. 00 log IU/mL). Testing was performed using the melissa HBV test ([employer] with the melissa 6800 System. Test Pe rformed by:[place] [id number] Director: Sukhwinder Neville M.D. Ph. D.; CLIA# [id number] MD Lopezus [id number] 21:36:34 Test Item Value Reference Range Interpretation Comments Final Report (test Few Yeast A code = 8488) isolatedProbable oral jesse Path Review - Fungus The results have been A (test code = 8479) reviewed and electronically signed by Pathologist:Mary Last MD, PhD #[id number] DARCI (test code = DARCI) And RULCultures are held for 4 weeks before finalization. Lab Interpretation Abnormal (test code = 90552-4) MD BarrientosTobramycin Norava1117-41-62 16:34:36 Test Item Value Reference Range Interpretation Comments Tobra Lvl <0.43 mcg/mL No reference ra nges (test code = established for random 7625) levels, please refer to trough and/or p eak levels provided : Toxic random level: > 10 mcg/mL Therapeutic Tro ugh Level: <=2 mcg/ mLToxic Trough Level: > 2 mcg/mL Therapeutic Pea k Level: 5-10 mcg/mLToxi c Peak Level: >10 mcg/ mL Tobra Ds Dt 10/27/2020 Level, date, an d time of (test code = previous dose i s not 7623) availablefor th is sample. The marck e reported is the samplecollectio n date. Tobra Ds Tm see note Level, date, an d time of (test code = previous dose i s not 7624) availablefor th is sample. The marck e reported is the samplecollectio n date. DARCI (test code Please draw 30 = DARCI) minutes before dose is due on 10/27 at 11am MD BarrientosFerritin Jhvyf3242-66-42 09:30:46 Test Item Value Reference Range Interpretation Comments Ferritin Lvl (test code = 5608) 899 ng/mL 30-400 H Lab Interpretation (test code = Abnormal 19224-6) MD BarrientosGastrointestinal Multiplex Panel Path Yrwxiy9287-64-68 20:12:16GIMP PRNo diarrheal pathogens detected by multiplex nucleic acid detection. A negative result does not rule-out the possibility of a diarrheal pathogen not are detected by this panel. Non-infectious causes of diarrhea should also be considered....Reviewed and Electronically signed by Pathologist:Jonathon Bethea MD, PhD #[id number] Comment: Performed by real-time PCR methodology. This assay detects the presence of nucleic acid (DNA or RNA) for the pathogens reported. A result of "Not Detected" does not exclude the possibility of the presence of one or more of the pathogens at less than the detection limitsof this assay. The results of the GI Panel should be considered presumptive. Clinical correlation isrecommended. JONATHON BETHEA MD, PhD - [id number] by: JONATHON BETHEA MD, PhD - [id number] Date/Time: 10.23.2020 15:12 PM CDT Transcribed Date/Time: 10.23.2020 15:12 PM CDTElectronically Signed By: JONATHON BETHEA MD, PhD - [id number] on 10.23.2020 15:12 PM [facility]MD AndersonClostridium Difficile DNA Path Review 2020-10-23 19:51:50C diff DNA PRC. difficile EIA is performed only on stools positive for C. difficile DNA and detects the presence of C. difficile toxin proteins via a rapid immunoassay. Patients positive for BOTH C. difficile DNA and EIA are more likely to have a C. difficile infection....Reviewed and Electronically signed by Pathologist:Jonathon Bethea MD, PhD #[id number] Comment: C. difficile Toxin DNA (Primary Method) is a nucleic acid amplification test (NAAT) intended for the qualitative detection of bacterial DNA fromtoxigenic strains of Clostridium difficile.Reference Range: DNA NegativeRapid immunoassay method is performed on positive PCR samples.Clostridium Difficile Toxin Assay (Reflex Method) performed byrapid immunoassay for the detection of Clostridium difficile toxins A and B in stool specimens.Reference Range: NegativeWhen invalid results are obtained by either the primary or reflex method, a new specimen should be collected for repeat testing. JONATHON BETHEA MD, PhD - [id number] by: JONATHON BETHEA MD, PhD - [id number] Date/Time: 2020 14:51 PM CDT Transcribed Date/Time: 10.23.2020 14:51 PM CDTElectronically Signed By: JONATHON BETHEA MD, PhD - [id number] on 10.23.2020 14:51 PM [facility] BarrientosClostridium Difficile DNA [id number] 15:56:03 Test Item Value Reference Range Interpretation Comments C difficile DNA (test Positive Negative A code = 5134) C difficle Toxin EIA Positive Negative A (test code = 8961) C difficile C. difficile EIA is Interpretation (test code performed only on = 8573030) stools positive for C. difficile DNA and detects the presence of C. difficile toxin proteins via a rapid immunoassay. Patients positive for BOTH C. difficile DNA and EIA are more likely to have a C. difficile infection. Lab Interpretation (test Abnormal code = 20264-1) MD BarrientosGastrointestinal Multiplex [id number] 22:23:03 Test Item Value Reference Range Interpretation Comments Campylobacter (test code = Not Detected Not Detected 5262) C difficile DNA (GI Multi Refer to separate Panel) (test code = 9112) C. difficile DNA Assay for results Plesiomonas shigelloides Not Detected Not Detected (test code = 6836) Salmonella (test code = Not Detected Not Detected 7315) Vibrio (test code = 8012) Not Detected Not Detected Vibrio cholerae (test code Not Detected Not Detected = 8013) Yersinia enterocolitica Not Detected Not Detected (test code = 8049) Enteroaggregative E. coli Not Detected Not Detected (EAEC) (test code = 5478) Enteropathogenic E. coli Not Detected Not Detected (EPEC) (test code = 5488) Enterotoxigenic E. coli Not Detected Not Detected (ETEC) (test code = 5489) Shiga-like toxin-producing Not Detected Not Detected E. col (STEC) (test code = 7295) E. coli O157 (test code = Not Applicable Not Detected 5477) Shigella/Enteroinvasive E. Not Detected Not Detected coli (EIEC) (test code = 5484) Cryptosporidium (test code Not Detected Not Detected = 5410) Cyclospora cayetanensis Not Detected Not Detected (test code = 5416) Entamoeba histolytica Not Detected Not Detected (test code = 5512) Giardia lamblia (test code Not Detected Not Detected = 5681) Adenovirus F 40/41 (test Not Detected Not Detected code = 4747) Astrovirus (test code = Not Detected Not Detected 4828) Norovirus GI/GII (test Not Detected Not Detected code = 6511) Rotavirus A (test code = Not Detected Not Detected 7219) Sapovirus (I, II, IV and Not Detected Not Detected V) (test code = 7321) MD BarrientosHepatitis B Surface Ag w/Bseosgr5121-77-64 16:28:28 Test Item Value Reference Range Interpretation Comments Hep Bs Ag-[place] Negative Negative Test Perform ed by:[place] (test code = [facility]196-1[facility] [place] [employer] [address] [employer] [facility] [place], [place] [address]Xcp Director: Sukhwinder Neville M.D. Ph. D.; CLIA# [id number] MD BarrientosComplete Blood Count w/o Qertytuigvmg7891-40-23 09:59:09 Test Item Value Reference Range Interpretation Comments WBC (test code = 7.1 K/uL 4.0-11.0 6690-2) RBC (test code = 789-8) 2.73 See_Comment L [Au tomated message] The system SureFire generated this result transmitted ref erence range: 4.50 - 6 .00 M/uL. The refer ence range was not u sed to interpret this result as normal/abnor mal. Hgb (test code = 718-7) 7.9 See_Comment L [Au tomated message] The system SureFire generated this result transmitted ref erence range: 14.0 - 1 8.0 gm/dL. The refe rence range was not u sed to interpret this result as normal/abnor mal. Hct (test code = 24.5 % 40.0-54.0 L 4544-3) MPV (test code = 787-2) 10.3 fL 4.0-10.4 MCH (test code = 785-6) 28.9 pg 27.0-31.0 MCHC (test code = 32.2 See_Comment [Automate d message] 786-4) The system SureFire generated this result transmitted ref erence range: 31.0 - 3 6.0 gm/dL. The refe rence range was not u sed to interpret this result as normal/abnor mal. RDW-SD (test code = 54.5 fL 35.1-46.3 H 23749-2) RDW-CV (test code = 16.9 % 12.0-15.5 H 788-0) Platelet count (test 81 K/uL 140-440 L code = 777-3) INRBC (test code = 0.0 % See_Comment The INRBC (instrument 5974) NRBC) value ref lects the enumeration of nucleated red b lood cells contained in a 200uL sampleof whole blood analyzed by the instrument. Thi s value maydiffer from the NRBC value repo rted in a manual differential,wh ich is based on a 100 cell differential. [Automated mess age] The system SureFire generated this result transmitted ref erence range: <=0.0. T he reference range was not used to int erpret this result as normal/abnormal . Lab Interpretation Abnormal (test code = 54685-8) MD BarrientosLactic Acid, Jxjlpi8246-23-78 09:42:03 Test Item Value Reference Range Interpretation Comments V Lactate (test code = 2519-7) 0.8 mmol/L 0.5-1.6 MD Taylorpatitis B Surface [id number] 10:42:36 Test Item Value Reference Range Interpretation Comments HBsAg Received (test See Note HBsAg w as sent to a code = 55473) reference lab for testing. Expec t results on Hepa titis B Surface Antigen w/ Confirm within 96 hours. MD BarrientosEdyymfyhXQX8196-48-46 09:56:39 Test Item Value Reference Range Interpretation Comments pH Art (test code = 7.51 7.35-7.45 H Results are 2744-1) corrected for a body temp of 37C. pCO2 Art (test code = 33.9 See_Comment L [Auto mated message] 2018-10) The system SureFire generated this result transmit jigar reference range : 35.0 - 48.0 mmH g. The reference r [place] was not used to interpret this result as normal/abnormal . pO2 Art (test code = 104 See_Comment [Autom ated message] 6) The system SureFire generated this result transmit jigar reference range : 83 - 108 mmHg. The reference range was not used to interpret this result as normal/abnormal . HCO3 Art (test code = 27 mmol/L 21-28 1960-4) Base Excess Art (test 4 mmol/L -2-3 H code = 1925-7) O2 Sat Art (test code = 99 % 95-99 6512) Lab Interpretation (test Abnormal code = 72389-6) MD BarrientosVancomycin Level Atgdwe2398-77-30 06:58:59 Test Item Value Reference Range Interpretation Comments Vanco Lvl (test 9.9 mcg/mL Therapeutic Random Level: code = 8002) 5-40 mcg/mLToxi c random level: >40 mcg/ mL Therapeutic Tro ugh Level: 5-20 mcg/mLToxi c Trough Level: >20 mcg/ mL Therapeutic Pea k Level: 25-40 mcg/mLTox ic Peak Level: >40 mcg/ mL Vanco Dose Time See note Level, date, and time of (test code = previous dose i s not 8001) availablefor is sample. The date report ed is the samplecollectio n date. Vanco Dose Date 10/12/2020 Level, date, and time of (test code = previous dose i s not 8000) availablefor is sample. The date report ed is the samplecollectio n date. MD BarrientosMRSA Screening Ssplmgv5821-96-30 21:32:10 Test Item Value Reference Range Interpretation Comments Final Report (test No Methicillin resistant code = 8488) Staphylococcus aureus isolated. Path Review (test The results have been code = 8492) reviewed and electronically signed by Pathologist:Mary Last MD, PhD #[id number] MD BarrientosGeneral Laboratory Add-On [id number] 07:25:00 Test Item Value Reference Range Interpretation Comments Ordered (test code = 6568) Test Added Test Needed (test code = 7604) CMP, mag, phos MD BarrientosCalcium Ionized, Dblzwd4310-50-25 13:46:31 Test Item Value Reference Range Interpretation Comments V Ion Ca (test code = 78376-9) 1.14 mmol/L 1.15-1.29 L Lab Interpretation (test code = Abnormal 45479-4) MD Aguirre Juimmjp3010-99-01 21:36:07 Test Item Value Reference Range Interpretation Comments Final Report (test No Legionella species code = 8488) isolated Path Review - The results have been Legionella (test code reviewed and = 8480) electronically signed by Pathologist:Mary Last MD, PhD #[id number] DARCI (test code = DARCI) Label says RML & RUL MD Feliz Astgfdysg4643-35-07 15:15:29 Test Item Value Reference Range Interpretation Comments TMP Exception Patient A Pos ____ Interp (test transfused with O Pos code = 7544) platelets. This is due to temporary _JULYRIN COR DYLAN unavailability of ABO SINGH ,Dictated compatible platelets by: CHICA SINGH,Dictated Date/Time: 10.05.2020 10:1 5 AM CDT Transcribed Date/Time: 10.05.2020 10:1 5 AM CDTElectronical ly Signed By: JENNA IN THONG SINGH, on 10.05.2020 10:15 AM MD Dougherty platelets:Transfusion Date: 10/04/2020; Transfusion Indications: Actively Bleeding; G707, 1 Zxuor9306-83-38 21:47:10 Test Item Value Reference Range Interpretation Comments PLT Product Ready Approved Platelet o rder (test code = [place] been 69431-0) approved. Order Form 3 when ready for product issue. Expect 2 hours for platelet concentration. Unit Number (test [id number] code = 7002) Product Code (test [id number] code = 7003) Unit Expiration [id number] (test code = 311640) Unit Blood Type 5100 (test code = 7004) Product Code Text PLATELETS Pooled IR (test code = 807987) LR CT Number of Units in 4 Pool (test code = 780235) Unit Irradiated IRRADIATED (test code = 416234) Unit Leukoreduced LEUKOREDUCED (test code = 079796) Dispense Status ISSUED (test code = 7001) Unit Blood Type O Positive (test code = 7005) Product Client Leader .BPAM ___ Location (test code = 582052) MD BarrientosPLT Product Ready for Pick [id number] 21:05:07 Test Item Value Reference Range Interpretation Comments PLT Product Ready B2 Blood Bank Product i s ready for for Client Leader (test turkey picker on October 04, code = 005729) 2020 16:05:02 CDT. MD BarrientosFecjnspbFhdvxprnns7042-43-37 18:27:11 Test Item Value Reference Range Interpretation Comments Fibrinogen (test code = 5610) 193 mg/dL 214-503 L Lab Interpretation (test code = Abnormal 95567-2) MD BarrientosCytology Non-Correspondence Clerk Waicqshkcukuvd0005-43-51 23:36:05 Test Item Value Reference Range Interpretation Comments Gross Description (test a7feqMYwRKOtmDIJIJ code = 3053865897) YfM7pvkvIsRSUufLIu J7SiylvoNIavXG5dYA 2voUnlkQPwdDNhZS8E XGRlZmYxXHBhcGVydz EyMjQwXHBhcGVyaDE1 TSEaDY6rwypdUMeeED zwVQIetyV1MAVgdDYb Y0RzJCMdYN2qhgbqET Z9ZJlknF0nncHJDlpp Th8ctAPzmPxgNjCaZz NoYXJzZXQwXGZuaWwg MJOuPNj8dP1WQjpjZ4 3bo4D6Gck2PQBeRJFi J6TgJH9wNTEciBMuH0 2OAsucMIQ3MYBBYcgv DIRhMJ4Gv6cdBSEyaR JlHGL8YFrqcERvVPVp UTDrDRh7PATjGAkauH AsEA0igUfvQbievZdj q8XaySIoHXirJYAzOL HkJJykDDPiEV7GWeTs SVBlPRA6GHviITe1HU n6YK4PJoOvEUTsJRi7 RPwtJnFbHSj9XYplHA 3FZXv0Pou6MiA0SHH2 WJE7ZQUuFBHxGtDhQS YgQXJpYWwgXFxmcyAx MCBcXGZiIFxcZmwgXF dcS14azWafrH1aOgcu deLfXVU2EIKyupFKEq xwbGFpblxlcGljTmVz dERvYzEgDQpcbHRycG FyXGxpbjBccmluMCAN ClxsdHJjaFxjZjFcZn MyMCAxIERpZmYgUXVp xtiqIFBHILYzO7LofG 8jS1ccCNKqCJMawyCL IuH7JE1uXuWctAYeaH AnlAfiQwmzqFG4FGav AxksnQ6nbOGONDKPZh fBRuidrcOhPU4MVAPN RmOLNV97HpO7DxY4BY wxfXtcZmxkcnNsdCBc VdUOyN9ivJpziZXngB FmaS31AXtpXVQfx9St C4Czo8jfrZQeVVzbLg lhzJMhpbP1KVhRWFZE YAdLVcLiUT1qCWvDMI RCRUdJTnwyfXtcZmxk ghHmpXJaJdRRdH9oyG 8tp7lxvJKtOUzwKnnz cXNpasD4MOhOXSLXSG uSHeGaFW4ySMsUIZMZ MjB3Ev85NTCjMOGxjM MwCLdwC020SYYlWFiw MTg8pyBrHYAlx0DhD6 ZiJ8HuAVRgDrVnUHEp iQmwu6pfkSLdVPinKm jwxNBymrZ6WWuAAFTP DClSFcWwPY8nKHgPJ3 AHOfF4BjF0LpJ7ZLws fXtcZmxkcnNsdCBcJz OXnB1spTcwkJ6pzLAm S3svK9MeYDSyAtBhdE AuRE4DTYTzb0YuU8W9 VZTdGJlbw6dxYBOeGM iwn7EjAWzXQVIKKW5X DX5qqGM7RSsCRXJZL9 dBtGH8ClIkfMU5G621 XGZsZHJzbHQgXCcxQ3 15H7HqE8lhPN2rR40t D0IwxLHfyDVeMKK7ZD L2iQ3uSH07kpkhwHyj pBlgejC7ACEqybccyM U6ZDRpGDoui7enWTUa PCqfj7IfOIxPRSSHYW 8QWX8moLV9HGhIQVNB XCllNNU0SPzlrUI6w9 vurEFnx2x0DFfuLNK1 fVxwbGFpblxsdHJjaF xjZjFcZnMyMFxwYXIg WEdJkYBjgZr5UPntns MHMQWVYJtHJ4WbZADC MUBLWBDlZoIUIM9wGo P3JqK5MV91YgdcHeL5 SdRdeGD4JVFHMGZRKZ oZU6DoFKAWSURLOTLb YI6LVFeOBGLMNIRGE2 2CJWOFBGVKN5ZIP2rA YPGlj1FgktlTUQiFY0 JBXK9YVRLMCLECJC1R RwUjECcMJ1DBI4gJFM JfTUVUQURBVEFfQkVH CL4mRRs4Shd1kRY6Zz R4ZyG7XswsQA4wBJxW f09vNV02ttY5xA1mFJ LmB5dvpDG6COmiLXP7 CQm2IiPfPTWpsLDxBH NvbmNlbnRyYXRlZCBi aBRgyHHeQ8YlxEMaSs OlHOFhh62swMUcoK2f kNNnPtamLV4cLQrDZ3 JZK6iTPLKcWEVMZUQY LVByXL9XVHbTQB2QJO JfTUVUQURBVEFfQkVH OB4vUGhXAX2HYGBtRN LEWUTBDXJyAW2LROXH KL6RIUXZFLEJT43USI YAQXKJF6BIL2rGSKFB VRTBMiWRVjEIQU9ZBB RQIXEYBL2RFjBVKzuy bGFpblxlcGljTmVzdE ApOsMejSsdxF55LTUi uRSzBER2MS6pNEKfqy ihQDOhZHGiUES9CTgq fM64gVBxLGZtFGXsgI KavC7UIHUaDOU8SGtx jP59lKBvPY3CBBRuGV W9RBPhjBYrCPA8HW5w fQ0KfQ== Major Classification (test NFMC/benign code = 9839) Diagnosis (test code = 34) c1rwcRQzHFVpdVQ0EM ApLRXxf4lzw8RdzBHf cGFyXGpleHBhbmRcbm 70vXN2qG30RS4kASIg JrJ2CFFhlyV8Emv4JW WtTUWdhMZmR562z5dr b6ezywAqkBF0ZCUfMN RoA6GcNQ0gWSArkQXl Z74nlWOnMYX7NNXtNX WltATcGBIvIMK0UMNg yPPaW7qaMRPvGX4wny dyMTgwMFxtYXJndDE0 TZByeQYnU5YiKVIdJS shMBAvasa9ByVzFd8y dGVyeTcyMFxwYXJkXH ImMQgiLIFaZySnN0Pc MHOnKSa8mwlfCYSzF2 w8VFHpiNWvAFtyQqKg ESRtg47tdZ4axVFsk5 arsfDeQLUdY4P8CWMr zrx2YIGowYXqNLguSf IwXGxpbjcyMFxjZjAg At0qhCSraUaqGK52IH EqbHxgFLzqHH73kTHo XHTslIRtEB0oUNVtvp CbYOLtPV6xWSOmzXTt IEdNUyBzdGFpbiwgbm BeEBFkemKtEn8mNFH4 rptqrLAex0UmgfLqbD FyIEdNUyBzdGFpbiwg bkSrDNXgbbWrEa5kNL OpKHBes7E8f0Zpu5ma YXIgSXJvbiBzdGFpbi wkHEJmRS86sYOuzIlc bmVnYXRpdmVccGFyfQ == Comment (test code = 9835) p9kedSGwPKEsjOD0CH RlKSIhh0rxp8LanZSu cGFyXGpleHBhbmRcbm 22pZT4jD56WR1xRVVg WjJ8KGXibcR1Uhf9LD GtMJXnbFCoR870s2on e5ojlkYmbCJ6pOhwTV SaskybItP0IDrxXPDs kkkdBFf3HJjvOJWvyL U3HUKjcYBlL2YhEWHm BS2qkdw1SBE8SCmiVL BiBmR7HQPfbNUuVXDb mLduGOwun204QPY2Im XdEVXqvuVipNttmT9i ZtYrKKTOb503xt3ovl VkpuViBEXopt4vhwot dGUuIFxwYXJ9 Retained/Biomarker Testing p4ikeHGzQJXglFS6UI (test code = 9838) SuQSIrs8wvv9LiuAVg cGFyXGpleHBhbmRcbm 52lAD9mA70FD8fIHEp KxR5GUBwjcN3Mxb0MZ BaHOKyjJJmZ802y8xp q3xnlgAhwFW3qUglFY KalslnAgR8RHpgWRKh acrdTDy8ZRyoGIEjoD U1AWRnxDRtE5FjUKUj HG9xuly0NAX3OKtdEV QmBxP0YRSbuUVuZZQr gPcjLBebj258REW6Wh CdCZQirwQxjSphgE1b ZnMyMCBTUjogMiBTLC AyIFNQIFxwYXJ9 Informational Points (test y0pucHArNVPrmARoIj code = 9836) AgZZMjYPDis2ffFGJs bGFuZzEwMzNcZnRuYm nloJSiVIRlIgUvh1mg s024gGLgd5mbVNEyMx X6dVJsWNRidXAfT632 WNNmTToaz6wzv9UcOS CfcNYvg4C2ZICGGUxp WBALUEi8f2eiXaDrHz Q2bFFgTQnoZ9mfcsBb gPIvYJJdLPm2zX26NX OraI1ofYOkKVjgtiMo LqF6GZqsNEPxEgU6OE NdnYKqYZRpX0sgIOVy XGdyZWVuMFxibHVlMC I7uIrzz6P5kBPcsOPg dHtcZjBcZnMyMiBOb3 ArXEp4zShtZ6DtTJQi XgH0gPKnNUUpNDrpGS TkCUDhzrT5kS12IFrq xaN1iCGjr3Egs36ft5 66hL4uiSYfWRZ0OEQo NAWkmUYtZINyEDB4OG EbyCRhO6ahXLXpDF9d cmdyMTgwMFxtYXJndD V0CBKwqPVcM4VtIPYg JYfwPQYklzx1CsApCv 5ooLQpkHjhYArjp2ht a9ovpUFeXqd0RIImWf MfRwddGPxgy5Iss9wp SVKgot2vXTB2yWKjjS dii4K8uVRnNZGqpCXz bbEsIAFiUoO4RIjwVY 4xok26VBGzANR5we4q bGNccGdicmRyaGVhZF wuN0NePCWpw774MDJz Q3IxFIMkd0Y7ldAgYp RhGZNxiAR5eyG0ZCGq EJv4dEYtxvW9jsShqN EzP7ktpX1bAAYbXQ3p jzxjs3eoUFxrSYgjVS HgeEZ1sqN5MPIfaNQg X8MokI4aWEPuQIszXD Cefcy5BsSeDm7niBWe eTcyMFxzYmtwYWdlXH BnbmNvbnRccGduZGVj XHBsYWluXHBsYWluXG YwXGZzMjRccWxccGxh rO3hMwXyXiCkTKzoPX 2ySPKwA0flaIQdCDLl SVGtY0yrQjMfeZ8vpS haYCmuceZ2JQgmQ11f TYN9DRM8gjWbBEKfpp KjPKVxCPFjJK0gfHDd FXYrGFXcPO9dIJU7ZD xvcGVkIGFuZCBwZXJm o7JyCN4cGSXpuUYnCF U8BAMpc3SbT7XjDGB5 TDSopD3dMMIgaRWAZD BNRCBBbmRlcnNvbiBQ RGJbe9msF7ydLM7zIY xkYc0gXKEopizuKRSq aWNpbmUuIFRoZXNlIH Uta5HyFEyuubVeba66 BWJoYJ5ck4MxE8fuqU EgiMg9LRKyAIZpQQRu o1DvYEDuqu36FQStJi xjqFaaNNSqKh9bAk3x AMEgkrCjFWX3EvNOHY 3klsntnASmkRxeop6h XHBsYWluXGYyXGZzMj JcbGFuZzEwMzNcaGlj aFxmMlxkYmNoXGYyXG bvO8bpHxUzQpRjBzzy YXJ9 MD BarrientosPneumocystis jiroveci Quant, [id number] 14:08:45 Test Item Value Reference Interpretation Comments Range P. jiroveci Not Detected Not Detected Assay Range: 8 4 copies/mL to BAL-[facility]ac[employer] copies/mL 1.00E+08 copies /mLThe limit of (test code = quantitation (L OQ) is 84 6592) copies/mL. Pneumocystisjir oveci DNA detected below the LOQ will be reported as Detected:<84cop ies/mL.This test was hiwot wiggins and its performance characteristics determined by [employer]. It has not been cleared or approvedby the U.S. Food and D rug Administration. Results should be used inconju nction with clinical findin gs, and should not form the so lebasis for a diagnosis or tr eatment decision. Perfor med At:[employer] [address]Dfqjwolzqp Director: Carroll Bill Ph.D ., BCLD (ABB)CLIA#: [id number]: DARCI (test From RUL and code = DARCI) RML MD Lemus [id number] 22:30:33 Test Item Value Reference Range Interpretation Comments T4 Free (test code = 7502) 1.11 ng/dL 0.93-1.70 MD BarrientosCvuvpmmqIIB9015-07-63 22:30:26 Test Item Value Reference Range Interpretation Comments TSH (test code = 1.11 See_Comment [Automated message] The 2777) system which ge nerated this result transmit jigar reference range : 0.27 - 4.20 mcunit/mL. The reference range was not used to interpr et this result as sonido l/abnormal. MD BarrientosZzirqfkpRPR6781-25-92 05:53:04 Test Item Value Reference Range Interpretation Comments pH Dom (test code = 7.27 7.32-7.43 L Results are 2746-6) corrected for a body temp of 37C pCO2 Dom (test code = 43.9 See_Comment [Auto mated message] 2020-06) The system whic h generated this result transmit jigar reference range : 41.0 - 51.0 mmH g. The reference r [place] was not used to interpret this result as normal/abnormal . pO2 Dom (test code = 44 mmHg 2705-2) HCO3 Dom (test code = 20 mmol/L 21-28 L 59024-9) Base Excess Dom (test -6 mmol/L -2-3 L code = 1927-3) O2 Sat Dom (test code = 67 % 6513) Lab Interpretation (test Abnormal code = 94498-8) MD BarrientosPreparelliott fresh frozen plasma:Transfusion Date: 09/30/2020; Transfusion Indications: Prothrombin time greater than 18 seconds; G701, 2 Ggckr8289-66-78 21:03:55 Test Item Value Reference Range Interpretation Comments FFP Product Ready 2 Fresh Froz en Plasma (test code = 42612-4) Availa ble - Order Form 03 when re will for product iss ue. Unit Number (test [id number] code = 7002) Product Code (test [id number] code = 7003) Unit Expiration (test [id number] code = 679247) Unit Blood Type (test 6200 code = 7004) Product Code Text PLASMA IR CPD (test code = 438054) Unit Irradiated (test IRRADIATED code = 275417) Dispense Status (test ISSUED code = 7001) Unit Blood Type (test A Positive code = 7005) Product Client Leader .BPAM Location (test code = 748160) MD Quinones Product Ready for Pick [id number] 16:12:10 Test Item Value Reference Range Interpretation Comments [facility]FP Product Ready B2 Blood Bank Product i s ready for for Client Leader (test turkey picker on September 30, code = 370586) 2020 11:12:03 CDT. MD BarrientosCardiac [id number] 09:19:04 Test Item Value Reference Range Interpretation Comments CK (test code = 5206) 138 U/L 39-308 CK MB (test code = <2.0 See_Comment [Automat ed message] 1127) The system [employer] generated this result transmitted ref erence range: <=10.4 n g/mL. The reference r louis was not used to interpret this result as normal/abnor mal. Troponin T (test code = 123 ng/L See_Comment A < 19 ng/L 4487) Bentley ggest retest at 3 to 6 hours later to rule o ut myocardial infarction >= 1 9 to <=52 ng/L Possible myocar dial injury. Sugges t retest at 3 jessi rs. - a change of < 20 ng/L, retest at 6 jessi rs - a change of >= 20 ng/L, suggestive of myocardial infarction > 52 ng/L Suggest rere of myocardial infa rction Critical value will be reported when c Grace is > 52 ng/L and o nly reported for th e first in a series. He molyzed specimens with Hemolysis Index >100 (100 mg/dl or m oderate hemolysis) may cause interferences a nd falsely low res ults. [Automated mess age] The system [employer] generated this result transmitted ref erence range: <=18. Th e reference range was not used to int erpret this result as normal/abnormal . Lab Interpretation Abnormal (test code = 77440-2) MD BarrientosDifferential [id number] 20:04:48 Test Item Value Reference Range Interpretation Comments Diff Cancelled (test See Note Due to low WBC, the code = 8954) differential wi ll not be performed and i t is not possible to michael culate ANC. MD BarrientosRespiratory Viral Panel + COVID-19, Nasopharyngeal [id number] 14:00:06 Test Item Value Reference Range Interpretation Comments Adenovirus (test code = Not Detected Not Detected 4748) Coronavirus 229E (test Not Detected Not Detected code = 5349) Coronavirus HKU1 (test Not Detected Not Detected code = 5350) Coronavirus NL63 (test Not Detected Not Detected code = 5351) Coronavirus OC43 (test Not Detected Not Detected code = 5352) COVID19 (SARS-CoV-2) Not Detected Not Detected (test code = 98286-5) Human Metapneumovirus Not Detected Not Detected (test code = 6401) Human Not Detected Not Detected Rhinovirus/Enterovirus (test code = 7212) Influenza A (test code Not Detected Not Detected = 5618) Influenza A H1 (test Not Detected Not Detected code = 5619) Influenza A H1 2009 Not Detected Not Detected (test code = 5620) Influenza A H3 (test Not Detected Not Detected code = 5621) Influenza B (test code Not Detected Not Detected = 5622) Parainfluenza 1 (test Not Detected Not Detected code = 6779) Parainfluenza 2 (test Not Detected Not Detected code = 6780) Parainfluenza 3 (test Not Detected Not Detected code = 6781) Parainfluenza 4 (test Not Detected Not Detected code = 6782) Respiratory Syncytial Not Detected Not Detected Virus (test code = 7157) Bordetella Not Detected Not Detected Parapertussis (test code = 03177) Bordetella pertussis Not Detected Not Detected (test code = 4854) Chlamydiophila Not Detected Not Detected pneumoniae (test code = 5139) Mycoplasma pneumoniae Not Detected Not Detected (test code = 6203) DARCI (test code = DARCI) The BioFire RP2.1 is a real-time, nested multiplexed polymerase chain reaction test designed to simultaneously identify nucleic acids from 22 different viruses and bacteria associated with respiratory tract infection, including SARS-CoV-2, from a single nasopharyngeal swab (COMPUTER SCIENCES PROFESSOR) specimen. Specifically, the SARS-CoV-2 primers contained in the BioFire RP2.1 are designed to detect RNA from the SARS-CoV-2 in nasopharyngeal swabs in transport media from patients who are suspected of COVID-19 by their healthcare provider. Results must be interpreted within the context of all relevant clinical and laboratory findings and should not form the sole basis for a diagnosis or treatment decision. This assay has been approved by the FDA for use only under Emergency Use Authorization (EUA) in laboratories that have been CLIA-certified to perform moderate-complexity and high-complexity tests. The Microbiology Laboratory at [facility], CLIA Accreditation #[id number] and CAP Accreditation #[id number], verified the performance characteristics of this assay. Microbiology Laboratory at [facility] performs the assay using the Wenwo System. Internal controls are used to monitor all stages of the test process. [facility] Confirmation [id number] 20:06:14 Test Item Value Reference Interpretation Comments Range HTLV I/II Positive Negative A REPORTABLE DISE ASE. [facility] (test Confirmatory test is the code = 5844) definitivetest for HTLV-I/-II infe ction status. HTLV I/II See Footnote RESULT: Reactiv ity at [facility] (test p19-I/II, p2 4-I/II, code = 5843) gp46-I/II, gp21 -I/II HTLV I/II HTLV-II -----ADDITION [facility] (test AL code = 5845) INFORMATION---- --This test was developed and its perform ance characteristics determined by [facility] in a manner consistent with CLIArequirement s. This test has not been cl eared or approved bythe U.S. Food and Drug Administra tion. Test Performed by:[facility] [address] [facility], [place], [place] [address]Rvx Direct or: Alonso Neville M.D. Ph.D.; CLIA# [id number] Lab Interpretation Abnormal (test code = 88756-2) MD BarrientosT-spot [id number] 19:34:54 Test Item Value Reference Range Interpretation [...] Negative A Invali d test - There 7663) were >10 spots in the negative contro l well.Performing Lab:[address] [address] Tspot TB Interp (test See Note Result [...] ulgai, M. gordonae, or M. marinum. [place] tests would be required if the se [...] test. Lab Interpretation Abnormal (test code = 65922-4) MD Chaney B Surface Qeeixjaz4407-17-17 18:30:51 Test Item Value Reference Range Interpretation Comments Hep Bs Ab-Oropeza Positive Patient is co nsidered to (test code = be immune to in fection 74363-2) with HBV. ----REFEREN CE VALUE -----Unvaccinat ed: NegativeVaccina jigar: Positive Hep Bs Ab Qn-[place] 1000 mIU/mL --------- REFERE (test code = NCE 5193-8) VALUE -----Unvaccinat ed: <5.0Vaccinated: >=12.0 Test Performed by:[facility] [employer] [address] [place], [place] [address]Xov Director: Sukhwinder Neville M.D. Ph. D.; CLIA# [id number] MD Chaney B Core Total [id number] 18:30:50 Test Item Value Reference Range Interpretation Comments HBc Total Ab-[place] (test Positive Negative A If c [facility] code = 15219-7) indicated, t esting for Hepatitis B Cor eIgM antibody is nec essary to differentiat e between acutean d past HBV infection. Test Performed by:[facility] ior [address] [place], [place] [address]Wok Dir el: Alonso asher M.D. Ph.D.; CLIA# [id number] Lab Interpretation Abnormal (test code = 15957-4) MD Shiv Upton [id number] 18:30:27 Test Item Value Reference Range Interpretation Comments HBe Ab-[place] (test Negative Negative Test Perf ormed by:[place] code = 52002-1) [facility] [employer] [address] [place], [place] [address]Amq Director: Sukhwinder Neville M.D. Ph. D.; CLIA# [id number] MD Shiv Upton [id number] 18:12:19 Test Item Value Reference Range Interpretation Comments HBe Ag-[place] (test Negative Negative Test Perf ormed by:[place] code = 91610-4) [facility] [address] [place], [place] [address]Rui Director: Sukhwinder Neville M.D. Ph. 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 Its perfor angeline characteristics weredetermined by [facility] in a man ner consistent with CLIA requirements. T his test has not been cl eared orapproved by isidoro U.S. Food and Drug Administration. Test Performed by:[facility] i[address] [place], [place] [address]Jra Direct or: Alonso asher M.D. Ph.D.; CLIA# [id number] [Automated mes eva] The system whic h generated this result transmitted ref erence range: 0.70 - 1 .80 mcg/mL. The ref erence range was not u sed to interpret this result as normal/abnor mal. Lab Interpretation Abnormal (test code = 13401-8) MD BarrientosFlow Cytometry Specimen Collection -[id number] 13:48:34 Test Item Value Reference Range Interpretation Comments Flow Cytometry Yes Test performe d by:The (Received) (test code [facility] = 8319) [facility] Cyto metry [address] [place] [address] Wonaker Ap Link (test [id number] code = 03948) MD Isabel [id number] 11:30:49 Test Item Value Reference Range Interpretation Comments Anion Gap (test code 9 See_Comment [Autom ated message] The = 0702) system which ge nerated this result transmit jigar reference range : 4 - 14 mEq/L. The refe rence range was not used to interpret this result as normal/abnormal . MD BarrientosChloride [id number] 11:30:48 Test Item Value Reference Range Interpretation Comments Chloride (test code = 110 See_Comment H [Auto mated message] 8337) The system Rocket[employer]olt h generated this result transmitted ref erence range: 98 - 107 mEq/L. The refe rence range was not u sed to interpret this result as normal/abnor mal. Lab Interpretation (test Abnormal code = 59610-9) MD BarrientosMssfrtjwFdrrizpth6424-15-02 11:30:46 Test Item Value Reference Range Interpretation Comments Potassium Lvl (test 3.7 See_Comment [Automa jigar message] The code = 6854) system which ge nerated this result tra nsmitted reference range : 3.5 - 5.1 mEq/L. The reference range was not u sed to interpret this result as normal/abnormal . MD BarrientosSodium [id number] 11:30:44 Test Item Value Reference Range Interpretation Comments Sodium Lvl (test code 145 See_Comment [Auto mated message] The = 7355) system which ge nerated this result tra nsmitted reference range : 136 - 145 mEq/L. The refe rence range was not used to interpret this result as normal/abnormal . MD BarrientosGlucose, [id number] 11:30:36 Test Item Value Reference Range Interpretation Comments Glucose Random (test 123 mg/dL 70-199 Effecti ve 10/21/15, the code = 9360) glucose referen ce intervals have been updated based o n [place] [employer] Association tia delines (Standards of M edical Care in Diabete s 2016. Diabetes Care 2 016; 39: S13-S22).Fastin g blood glucose:Normal: 70 99 mg/dLImpaire d fasting glucose (increa sed risk for diabetes or pre-diabetes): 100 125 mg/dLDiabet es mellitus: >/=1 26 mg/dL Random blood glucose:Normal: 70 199 mg/dLNote: Random glucose >100 mg /dL is associated with increased risk for diabetes MD BarrientosCarbon Dioxide [id number] 11:30:31 Test Item Value Reference Range Interpretation Comments CO2 (test code = 26 See_Comment [Automated message] The 5391) system which ge nerated this result transmit jigar reference range : 22 - 29 mEq/L. The refe rence range was not used to interpret this result as normal/abnormal . MD BarrientosUric Acid Hrneduksslt8246-33-29 10:54:26 Test Item Value Reference Range Interpretation Comments Uric MICHELLE (test code = 7956) 5.4 mg/dL 3.4-7.0 MD BarrientosHIV-1 DNA and RNA Qual [id number] 01:05:28 Test Item Value Reference Range Interpretation Comments HIV-1 Undetected Undetected Repeat testing in 1 to 2 months DNA/RNA is recommended for those atrisk [facility] of HIV-1 infect ion. (test code ----ADDITIONAL = 22785) INFORMATION---- Th is test was per formed using the [employer] RealTime HIV-1Qualitative assay ([employer] [place]) .This test was developed and i ts performance characteristics determined by [facility] in a manner consistent with CLIArequirement s. This test has not been cleare d or approved bythe U.S. Food and Drug Administration. Test [facility] [address] [place], [place] [address]Zbe Direct or: Alonso Neville M.D. Ph. D.; CLIA# [id number] MD BarrientosCell Count w/ Diff [id number] 21:19:32 Test Item Value Reference Range Interpretation Comments Type CSF (test code = Tap When r eviewing the 21246-4) cell count and differential re sults, clinicians celestino whalen consider the le ngth of time between spinal fluid collection and testing and the clinical condit ion of the patient. Appear CSF (test code = CLEAR CLEAR When reviewing the 69453-8) cell count and differential re sults, clinicians celestino whalen consider the le ngth of time between spinal fluid collection and testing and the clinical condit ion of the patient. Color CSF (test code = Colorless Colorless When reviewing the 33255-1) cell count and differential re sults, clinicians [...] the patient. [Automated mess age] The system SureFire generated this result transmitted ref erence range: [...] the patient. [Automated mess age] The system SureFire generated this result transmitted ref erence range: 0 - 0 /m cL. The reference r louis was not used to interpret this result as normal/abnor mal. Tot Cells CSF (test 100 When rev iewing the code = 21571-9) cell count a nd differential re sults, clinicians shou ld consider the le ngth of time between spinal fluid collection and testing and the clinical condit ion of the patient. Neut CSF (test code = 0 % 0-5 When r eviewing the 58518-9) cell count and differential re sults, clinicians shou ld consider the le ngth of time between spinal fluid collection and testing and the clinical condit ion of the patient. Lymph CSF (test code = 82 % 28-96 When reviewing the 37084-8) cell count and differential re sults, clinicians shou ld consider the le ngth of time between spinal fluid collection and testing and the clinical condit ion of the patient. Histiocyte CSF (test 18 % 16-56 When re viewing the code = 53275-5) cell count a nd differential re sults, [...] patient. Lab Interpretation Abnormal (test code = 74398-5) [facility] B-Cell Lymphoma Panel Collection, [id number] 16:06:33 Test Item Value Reference Range Interpretation Comments Flow Cytometry (Received) (test code = Yes 8319) MD BarrientosGlucose [id number] 15:38:52 Test Item Value Reference Range Interpretation Comments Glucose CSF (test code = 81 mg/dL 40-70 H 5697) Type CSF (test code = Tap When r eviewing the 7672) cell count and differential re sults, clinicians caliu ld consider the le ngth of time between spinal fluid collection and testing and the clinical condit ion of the patient. Lab Interpretation (test Abnormal code = 11401-7) MD BarrientosProtein [id number] 15:38:50 Test Item Value Reference Range Interpretation Comments Protein CSF (test 33 mg/dL 15-45 code = 6894) Type CSF (test code Tap When rev iewing the cell = 7672) count and diffe rential results, clinic ians should consider the length of time between spinal fluid co llection and testing and the clinical condit ion of the patient. MD BarrientosHepatitis B Total Ig Core Ab (SCREENING) (anti-HBc total Ig; HBcAb total Ig)2020-09-22 12:29:53 Test Item Value Reference Range Interpretation Comments HBcAb Received (test See Note HBcAb w as sent to a code = 75829) reference lab for testing. Expec t results on Hepa titis B Core Total Ab w ithin 96 hours. MD BarrientosHTLV I/II Ab Screen with [id number] 03:31:41 Test Item Value Reference Range Interpretation Comments HTLV I/II Ab Reactive Negative A Confirmatory te st is [facility] (test code order ed. Confirmatory = 68750-8) test is thedefi nitive test for HTLV-I /-II infection statu s. Test Performed by:[facility] [employer] i[address], [place], [place] [address]Eom Dir el: Alonso asher M.D. Ph.D.; CLIA# [id number] Lab Interpretation Abnormal (test code = 96932-3) MD BarrientosCMV Ab IgG+IgM Path [id number] 21:16:58CMV Panel PRPositive IgG with low IgM [...] results are obtained, another specimen should be mctddyver52-98 days later. BRIAN MCCALL MD - [id number] by: MD Matthew LUCERO [id number] Date/Time: 09.21.2020 16:16 PM CDT Transcribed Date/Time: 09.21.2020 16:16 PM CDTElectronically Signed By: BRIAN MCCALL MD - 15323 on09.21.2020 16:16 PM [facility]+[id number] 20:19:53 Test Item Value Reference Range Interpretation Comments CMV IgM Int (test code = 5219) Negative Negative CMV IgG Int (test code = 5217) Positive Negative A Lab Interpretation (test code = Abnormal 71807-6) MD BarrientosCytogenetics Specimen Collection -[id number] 17:21:02 Test Item Value Reference Range Interpretation Comments S[place] Tubbs (test [id number] Collect ion date/time code = 36342) has been modif ied to: 11:53:00. Prev ious collection date/time: 11:53:00.Correc jigar from [id number] [NA] on 09/21/20 12: 21:01 CDT by Beba Mckeon. Cytogenetics (Received) Yes Kyra ection date/time (test code = 8304) has been modified to: 11:53:00. Prev ious collection date/time: 11:53:00.Shamarc jigar from Yes [NA] o n 09/21/20 12:21: 01 CDT by Beba Mckeon. MD BarrientosTM HIV 1/2 Ag&Ab Path [id number] 17:39:04 Test Item Value Reference Range Interpretation Comments HIV 1/2 Ag&Ab Negative for Interp (test HIV-1 antigen and code = 9394) HIV-1/HIV-2 ____OSMANIBERLY antibodies. No MARLEN,Dictate d by: laboratory CECELIA GEE, Violet evidence of HIV Date/Time: 0 09.20.2020 infection. If 12:39 PM CDT acute HIV Transcribed Marck e/Time: infection is 09.20.2020 12:3 9 PM suspected, CDTElectronical ly Signed consider testing By: JERICHO GEE, on for HIV-1 RNA. 09.20.2020 12 :39 PM MD Chaney C Virus RNA Detect/[id number] 03:20:30 Test Item Value Reference Range Interpretation Comments HepC RNA PCR Undetected Undetected IU/mL Result in l og IU/mL is [facility] (test Undetected. code = 5881) ----ADDITIO NAL INFORMATION---- ----The quantif ication range of this a ssay is 15 to 100,000,000I U/mL (1.18 log to 8.00 log IU/mL). Testing was per formedusing the melissa HCV t est ([employer]with the c jabier 6800 System. Test Pe rformed by:[place] [address]Lab Director: Sukhwinder Neville M.D. Ph. D.; CLIA# [id number] MD BarrientosHIV-1/2 Antigen and Antibodies, Fourth [id number] 23:43:58 Test Item Value Reference Range Interpretation Comments HIV 1/2 Ag & Ab, Non Reactive Non Reactive Performed a t: 4th Gen (test code [facility] = 9280) [address] [place], [place] [address] MD BarrientosTMP RPR Path [id number] 21:45:35 Test Item Value Reference Interpretation Comments Range TMP RPR Path The Rapid Interpretation Plasma Reagin (test code = (RPR) assay is KIMBE RLY 961999) negative. If a Lois GEEat ed by: syphilis CECELIA infection is Violet GEE suspected, Date/Time: 08.26 please perform 16:45 PM CDT a Treponemal Transcribed Marck e/Time: specific 09.19.2020 16:4 5 PM screening CDTElectronical ly assay. Signed By: MARGARITA GEE, on 08.26 16:45 PM MD Barrientos Hepatitis C Virus Ab Screen, Reflex HCV [id number] 17:27:33 Test Item Value Reference Range Interpretation Comments HCV Ab Screen-[place] (test Reactive Negative A [facility] plemental testing code = 22582-4) for HCV RNA is ordered to rule outactive HCV infection.Signa l-to-c utoff ratio is >=8.00. Test Performed by:[facility] Super [address], [place], [place] [address]Ocq Dir el: Alonso asher M.D. Ph.D.; CLI A# [id number] Lab Interpretation (test Abnormal code = 13443-8) MD Mora Plasma Reagin (RPR) [Syphilis SCREENING]2020-09-19 08:01:35 Test Item Value Reference Range Interpretation Comments RPR Screening (test code = Non Reactive Non Reactive 560691) MD BarrientosTransferrin with [id number] 20:17:24 Test Item Value Reference Range Interpretation Comments Transferrin (test code = 197 mg/dL 200-360 L 7653) TIBC (test code = 7532) 276 See_Comment [Au tomated message] The system SureFire generated this result transmit jigar reference range : 250 - 450 mcg/dL. T he reference range was not used to interpret this result as normal/abnormal . Lab Interpretation (test Abnormal code = 45164-0) MD Dominique [id number] 20:17:23 Test Item Value Reference Range Interpretation Comments Iron (test code = 59 See_Comment [Automate d message] The 6066) system which ge nerated this result transmit jigar reference range : 59 - 158 mcg/dL. The ref erence range was not used to interpret this result as normal/abnormal . MD BarrientosPTH [id number] 20:12:22 Test Item Value Reference Range Interpretation Comments PTH Intact (test code = 6769) 157.2 pg/mL 15.0-65.0 H Lab Interpretation (test code = Abnormal 68627-3) MD BarrientosPeripheral Smear for Bone [id number] 19:36:57 Test Item Value Reference Range Interpretation Comments Peripheral Smear (test code = 4273) PSMEAR MD BarrientosConfirm [id number] 22:43:56 Test Item Value Reference Range Interpretation Comments ABORh Confirm. (test code = 882-1) A POS MD BarrientosEchocardiogram 2D [id number] 22:36:42 Test Item Value Reference Range Interpretation Comments EF (test code = 60 [id number]) PXN (test code Adrian Green MD - = PXN) 09/17/2020 Echocardiographic ReportInterpretation SummaryA complete two-dimensional transthoracic echocardiogram [...] Dyskinetic3-5 moderate5 - Aneurysmal 6-14 large 15-16 wasjxby1O imaginD volumes were not performed in this study.Cardiac Mechanics/Speckle Tracking Imaging:Speckle tracking imaging was not performed in this study. (GE Study).Diastology:Impaired LV relaxation pattern of diastolic dysfunction, [...] Index: 45.1 ml/m2 ESV (MOD-bp) Index: 18.0 ml/i7GQKGS (>1.6): 2.4 cmDoppler Measurements MV E max [...] 7.6 E/e' (lat): 5.2E/e' (sept): 14.5 MD BarrientosInfluenza A/B + COVID-19 Asymptomatic- [id number] 19:32:50 Test Item Value Reference Range Interpretation Comments COVID19 Not Detected Not Detected (SARS-CoV-2) (test code = 92882-9) Influenza A (test Not Detected Not Detected code = 09776-5) Influenza B (test Not Detected Not Detected code = 00971-9) COVID19 SARS Inpatient Indication (test Admission code = 64105) Inf AB+Cov19 See Note The melissa SARS- CoV-2 Comment (test & Influenza A/ B code = 11816) nucleic acid t est for use on the loli s Flaquita System is a mul tiplex real-time RT-PC R assay intended for the [...] sheet for patie nts provided by the sheet metal apprentice ([employer]) can be rev iewed at: https://www.fda .gov/m edia/236119/tequila nloadA fact sheet for Health Care providers is provided by the sheet metal apprentice ([employer]) and can be reviewed at: https://www.fda .gov/m edia/895356/tequila nload Influenza A and Influenza B neg [...] This assay has been authorized by t [facility] for use only un nahomy Emergency Use Authorization ( EUA) in laboratories that have been CLIA-certified to perform moderate-comple xity and high-comple xity tests. The Microbiology [facility] at [facility], CLIA Accreditation #[id number] and CAP Accreditation #[id number], verif ied the performance characteristics of this assay. Int ernal controls are us ed to monitor all sta ges of the test proceflash BarrientosBLOOD [id number] 13:00:00 Test Item Value Reference Range Interpretation Comments CULTURE (BEAKER) (test No growth in 5 days code = 1095) BLOOD [id number] 13:00:00 Test Item Value Reference Range Interpretation Comments CULTURE (BEAKER) (test No growth in 5 days code = 1095) Pathology Biopsy [id number] 22:57:15 Test Item Value Reference Range Interpretation Comments Submitted Clinical History i4drfGDwRTMba3xcGBB (test code = 52975) mbGFuZzEwMzNcZnRuYm pcdWMxIHtccnRmMVxzc 8UnD2PmKtKeBXjsynBh XGRlZmxhbmcxMDMzXGZ 0bmJqXHVjMVxkZWZmMH txXu1bcJFcyJkrSpVdM VYpw8aqxtFJtmvtuQz9 o4vqFPUwPhC0zOUqJWm nW4kixqWilLZkNPVxZL j3pH78QMGfqP3kiSZyM AydvbEyJsK6BImbOMKk PzN1CVYuhSErSHXqP0i yZWQwXGdyZWVuMFxibH XmHKG1tMipd7Q3qZJuw GVldHtcZjBcZnMyMiBO a4ZtDKm6bGkdR2UcKHL qRjN2jHJsRJGcGHwwZX IxAOUzbqH2wA19UTxip xN5wBOes5Svi37dv192 dU3oaSMeKBB4MSDtXUM gpXDaTOEvIYU5TODnqM GxS7giIVApWM7oupxrQ PnqKQpwQPEfjJA4MVZs jHTaG5IvWTDdGLuiXGS fmyq1OfGdHt3daMUjdO esWMxsl7tbl2srbIXdF ia3RSZqFsXzJdwjSPdk u9Wuq2ihZULyyr4lVXZ 0cJMcoLyck0D4aVIrRK YihMTbtlTlRJEgIwT0L FidMQ6ybp11SAYxTPW6 lu7chDHloJnronRvuZU cKGeeQ1HtBUArg485JL HpP4UhOZXkn9F6ziRmM sPsBXRgsSA5mhM6MPYs JMf7qSBrglO9yiAqwSX aB9recK8qBDYjWH2awe szc9hdALbhRFcmSEBbl EP0smS3FUPedLEjV0Js xL2bBBGvBYtlGLPokcl 5MpNdGa3icQZiwTqdKB xzYmtwYWdlXHBnbmNvb nRccGduZGVjXHBsYWlu XHBsYWluXGYwXGZzMjR mtFdczLonkK3qVrFwEt NrAVfuLK6wUDObG7itt FVjXENpUPRoY5vwXlQz jZ6cuZftFYhtifYtXX1 lc9Ypw1EyxhCyzbGsIy IyLjFdXHBsYWluXGYxX GZzMjJcbGFuZzEwMzNc aGljaFxmMVxkYmNoXGY eHIvyL9oiYyTkNsOfHe azQVL6nT== Diagnosis (test code = 34) w5kwyIHyPVMytSN5IOL zHZBmx3vxm7XccNVyxK MlBMukdLDaqgOweq22l KU9pS93VA7oSJMdVrK8 FPMeouL5Axt4MQYpBZU owJIxL151p7lfc4atsr GpaLK2JLHgMSJeV7WtK R3zXHRyaGHcG04hgROt VYE8LLNkXXOatMHeGOZ jKDW9UZWezNMqE8ipSU WpNO6pxsvjJHvlLAysD VHgmPI1IGAuuFDtT1Tb PWWwDKjjGILcotj5YrI rFx4ilHBwpUavRVhmHK JkXHBsYWluXGZzMjJcY 1OzTG6sQ3dpkZIkntqi pQJtfAhtO66uRSTubC9 dz7cncmcfuSSwPTEblr j6IFLoLNbUPhAXCDZBE VJHRSBCLUNFTEwgTFlN ATlAMQHjVD6VCt8ZSEL GKZ5SRNDUQT3ZOZWlZu 7LKNdIMXSRWC3KWSeAD Uinx3RfPSDpzH7wfvCi nXEyGAEmgxw4YNLhAFq DATFlUYESS5tkRkHudY KmZNEtyC9pWErdZB42b BJmXAEsPmnwxF9gjN8k rKisjI6woTFzmPS2iha wKWH6wQMxpzJuqlezZA Bio5UslMXhMVxqosArs 11cHUAlND8zoFugJJxv YXJ9 Comment (test code = 9835) k7bxuYNjHRTpkRU8THO eKJNih4ufp2WvdWHlsX XzKHpdvMWhmwNqoz69o YL3vP86VT0lVXRzRvE5 VFZwhbL1Kzr0EHBxAMX xjRJgI159g8ymh4elin RdzYK3WUVoQASbM5CvM A0gFZYnwTSjX88ypRCm ISJ1FIZzOTQdxDClKHI cFIP8WNDfdHFlQ7nmKV IpQP2rriboRUebOKslJ XSvhYY6VDUniPZpR4Jn FTZbRIuoIVUzuon4UsE sSl0tiMTglAogLYahPS JkXHBsYWluXGZzMjBcY 2NtLAKvFHXdoMP5z1wz I5pmDSKdI3Yxb46sRXN ii1ctKvKmY85jgoOeBT 9cZYKjZpTdvHpmj5YsA BXlBmS9o7RcmZVdkwPh OAg4JU4kyVCbfHckcM1 4x1n1HGBiCiezmHekdS hvbWEuICBUaGUgbHltc OzlbUGrqMUxU83bcFPs a9ZpEM1tQSUtLKS0woO dGdHxEYWiBDUmkD8vjK 6tUAVdIGkmqgZ5gNNpM LAxTK4mt5UbpNtjXE22 X4tbgDcxxROmDTe4qJX tHZ82M9haWBKrU74yxN 91cnMsIGZpbmVseSBka GShZBQbUMXzg8BhxqGk eVH0mFXzRRPoqi4bQRP pbiwgZnJlcXVlbnQgc2 ctE4gcCLYoYYUotx5qf X0jugKcWU0dsB4hpJcl dFtdVU38F3sxb0ukFRI mKEKcqXLkGEWmfO42li SfAG8lOAUfbDHxN2u3x 6EoBRPkMuDhPAu1w6Yd VrAoeSw8cwWcJKKaPTH lYXNpbHkgaWRlbnRpZm cqUpizBNOeYPAgrX0mu X96rMPvWl6paYGaGYDu EQKgnB3oha05mm2eFSE iNTXtJWnbNQ4ttjizHJ BjcnVzaCBhcnRpZmFjd QGdhiJao4OprFPumnWa fiNskB9eChC4wEJfCWG 9yAHlx6v5AOLolMNgf6 IpohMhwhK9wGRrKnSyv 8pci5NaCI4hlHUqNTPa brHKmJ42br4uxJK4f9X yIH1vQ9JnFIR9TSggcM 9mZGJlf0ncUSHrSWMkj YbsJS5zc5IaDKC8xGCf H6KicJKbULWzLWXek9n 0aXZlIGZvciBDRDIwLC BDRDIxICgzMCUsIHdlY LfsYCI9LwQqeTdcVBLT FIBxKKGXKBUxRT7ZBSY gFB08MZCcXEHZWIAxGI D6js4qRrezimagIFmqO M3eBDPAOTOhLYLzQYOi DVczwOh0IOTxd2KsP6N 1LCBDRDEwLCBDRDMwLC KEL3i5SDu+MjAlLCBiZ McabzJ6cKHcT0U0b9Jh SLfuK7yefKcoBIMmNHU rZXJhdGluIGFuZCBwYW 5wPCekht3eTRWnKQEkX 4h5EPleKlOxSSrxCHHS TkAuxcIyL2X5NSU4CJr ucyBoaWdobGlnaHQgc2 ZlgMVxmyBsTBZpwGh6Y WNqWOTtkH1nuR4gyHPs sy1vKTBfNUEMXPRqSXJ 8FFwzVXgiWX3jb3NdtT ZjecRsRUNvjhExJh8eZ ZWnlCraG8SkMSRtJOWe ZHJpdGljIGNlbGwgbWV zaHdvcmtzLiAgVGhlIG 5uq9MmTDO5jBWwE1Edp KOqpFF2FEAoZVDpx9ac UqGwDRGfi93rvX7mYLn md6EhQYAggs61yR8ywV IllCW6XEOcHxrpR1cxN vrlm8SzuJ0dcuqaERXH QkVSIGluIHNpdHUgaHl icmlkaXphdGlvbiBpcy ScVFcrqAd6BX1iHUgvQ OUbcRObZMCqtyS2fULe K9zcogpvUFqwfv68IHY cTWA0wFkvMHtiZCJdJw JqoOYdca7qkHYyhJMyJ ZCmVQSedlMzrrens0d6 eQAuHBLmQaAxM29mxGM cyAThPKOfXD6ro6LtUF WkBOLenaSatZ9zuUupW MzqGpIqp7Mlzy1fS1wh oFSbtTIrtZ7rAIWzvVV hrHLnGREtU2m6RV4kFN AhzlUec9HnFGCre3Epj mVjayBlbmxhcmdlZCBu h5MvyqJ8eZExSJfnvYE zIBMeC6sfwQUggMByXN OwokC7TuziQ02cDRQeA ISbNjRuB78vTW2iZIAj ZWQgbGVmdCBzdXBlcml scfKkDOAdIN4oMJTgZK YJDZKhILTyxd2pjPQxz 9WyDIjqT15ta8lcUT1p NRh1iPOrk03yRraxRGX bdCRhXC51HLRwsFddMU RhXRVjp1FncM6ox6znS wGcjhYorX8xuW3ucVvf rj15zJCpSsIesJ5qfV7 zvvAvvGWxz9X0DVJhHs G0c7FkfPGhE0AdAp9kP DugTCd5iVQtc02vZs2b R7XtJZUhGVXuxF78ld3 lxDUsj8K9fOdlEVQisv ScisjmJGY3kCCenaIdO GlmZnVzZSBsYXJnZSBC LWNlbGwgbHltcGhvbWE xd3Agji8xZOopnh9aey FsIGNlbnRlciBsaWtlI SKmCN9gjQyaNJxhMJRn j2GfkQ2eUIHyRPKsETX sAWJzg8Yux9KnVFBbhp RvbZBkeE1eLVAqc70eP tLaFJJ3FAlrsrI4QERf QODlJlY5LB70QookMkK tGag5i3Hde8LvjaHrTL luIHNpdHUgaHlicmlka ZrcqUxhtaAxw7WvfuVz cnJhbmdlbWVudHMgaW5 4b7w8bI5mRR1NEgawXc NMMiBhbmQgQkNMNiBhc aNtxP4vXOF5NNx9DJNc OWHnNEX7hXHcXSjjtPf nQwCjnpGxo0L9HYSrq6 VwYXJhdGVseSBhbmQgd KgyDVSdJNiwd9NbqaNo GBSfu9FmSOnhPW0fGTR kUI7ljMYidZ== Gross Description (test x9ndyYMkFZMuwMQUSPZ code = 5186261962) fO8bvtyGoJZUwxHGgE1 ZkgmxkJWrsBJ4rSW0mf IvilETlhCLdUL3GJHHs ZmYxXHBhcGVydzEyMjQ tJTVwxQBpaOG6DLVwKP 1hcmdsMTgwMFxtYXJnc gU9OQQhqYIlF1YeIHZh KG9lrxhqOAU0JPbngN9 jggPUCszlJs3drUKoyA tcZjFcZmNoYXJzZXQwX CCnwWiePJPiGQj4xL0F RrjiR90nq4R1Plt1KQK kPTWtU7QkJY5iNEAkeQ LkB68UBshhUEW2GENVA bboCHCyOO2Hz1ggKYUk zWBnOWD3YDszxELvIUZ qUOYpEWf8WTTmSYijzG JuGU7izXdcQpchmZruo 2VjdCBcXGlkIDUxMDAy UDllAJGjDK7ZZoAxYQJ mHmj7CJJmBIr6KEp9MZ 2VTwGiLZBpXIa7VAIqM DClFDt5UZxtCY6IPUq8 GWE3QsH1RNK1ZDRsMNX cXHQgMiBcXGYgQXJpYW wgXFxmcyAxMCBcXGZiI OgrRberDBhiJ70sqDur eM6nXmdfjiHgLKS3JMM hciANClxwbGFpblxlcG ljTmVzdERvYzEgDQpcb HRycGFyXGxpbjBccmlu MCANClxsdHJjaFxiXGN wDKfyhaSdDE0gO4liFY xlZnQsIGxlZnQgbmVja yBtYXNzIGFwcHJveCA9 HYLgIsKakNF9BbHdK58 2QWNgBWMsCWOdQAEwy1 NxwwIuQeItlW3sMWVpR hZzhBtvs0AvIENcWDMj YWdncmVnYXRlIHRvIDE pIbX6ZELdWmM4HKDvMO QqvMkkZQ98sJYnmRtqu 9ZsqVb4kJRgLUjxQJPr QrFqKHXzf1TgD3D8THK qFVbka0ylNTDbGOgmz1 EaSJcBJQIZFQ7GOM3of EH9MDsNH5XMD1qQuKDs ORM3oOH1BXUXOgwtwKM 5kXO3nI29ZRCjTVPaiE GaUZrxO333Q7W0YMAiO Pxrh6twRNJnTVedc9Rb OKzUVKDXGD1LIU3kqSK 7KIzPP9NUTHilCTTwYs eidOTVJAZ3SIpuaHexj Si0d9ueiNXqj9q6AZty IHR0yQukzNGbhrbhfWR yoBuqztYfQP3EZBKqNY icTGKraYZJCVG4HE5jX LkuuMWfvnvkVZZeN0Vw P5XrfbBhyWHfRTBdbuO wi8htOZW4QHRzbPJueA XrFoBxTjhdRNC9BXjen 3sfUCE4AOGauDBbqOWc YGmsVmEbPutmZFFgA9W kX3JwwsC5IIj0 Disclaimer (test code = i2bmkNJqBUFqwWPfTvO 9844) wHKLfQBOwc9kcKJHvrH FuZzEwMzNcZnRuYmpcd DAiPZEvUfNcg2fch662 oQTvh9mhMBBeZcL4fZP cOKUnvUFmY718VFHiXB zcp6jsk8MxWKBusYWop 1L1IKQSidqqpDb1aZuj V27qu3X2XcxtE1wqSVN lNFWbG7DdCU9yKWEiDi p2HWJ2WKE2XLBsNOZgN 6MdAD7xKOJhkRBhWKm6 v7vpiSczIWXqFHF1i1s oIQylvhZgZL6pit5adG m0a0fikbMvZQFmWSLir GOGCDMtI1TzhIzsGo4l pZo1pHhjFadcIGE1Ivs 3JQ9aju79dzf2cUccCJ GtehbnXyW0XNdlMKRun ojmNUt6KXifDZPcoEX5 XMBchQIrY6QlWRIvPJ8 ufib2HZH2WDnfWXMjRk S7GPSwiVHfDVIasEevY Unhc253LXN9TiUwFZ2l G2Etw0R9mM4lxKTuTTB tvAKiUpCnVCGlgn2saJ ZjQDhrl4HrQAD0npY6m QAhoTYvTUSqRS97Iczo z8VlYhvwKAJ9RGPfgkX ki0Lxn1xkKbKiynLlX2 kfH6NiCJTdXMNrDIMcO wYcenUfn9Sad4XjmSNv oHk8t8waSECvLAOmrBc ir0cgFXE8FCWdG4K3zU Zzh5tdPFsxPQWtpXF2j hU8JRRxkYGzM6GznF1p MIHjKA3zjxe6s2vmXYI 3MQknMDMxNeL4vyC1EA BcaGVhZGVyeTcyMFxmb 317PEA9AlQbMCIfz1As W6PtqKsrV38wrDhrA72 jBORnkQzmdR3grMyhiA 5cZjBcZnMyNFxxbFxwb ZPrttlcUFxiepB7HThz vrnlDEKlWYmeY0xmEdY lFTIeuEyeMBija0TsXW CbFFYkAkvxrnB5ILLXw 04wFCPuk7QdMRHyeN8d tLLxDBaufsOwdVX0DTu hdmUgYmVlbiBkZXZlbG 3xTXQrIC0tJQKsjmSyo z7plsZzYSJdIWTtM5Ek cmlzdGljcyBkZXRlcm1 erdKhMXQ9FSJAPR0OPM JjFNOta90zDICqwDiwy E7yhBQvubZsHDEjr8Oo cB5krBBGWSFdQ7uzBV1 cCGdnm2GrhCBemCQgrB I4BLEyl4AzViVemgXyl GAgcQQpG8QxfNypU5ff ISBoZMIoewXrqKAqp2F jBHEimEK8kIOnQP9APb HUy80dJEIoPBYRjzNlG VUbiWvfpKQ8phY1eH4f LiBJZiBhcHBsaWNhYmx lLSJil956wf2dauQ0JU ZlUHUyxlias9MpGJWjJ FAeaI97EXUjPCRinq3a uzinyLCmmsCpN0Nrsjb 3yI9oYYMnFHnuXWUmQC ZzMjJcbGFuZzEwMzNca GljaFxmMVxkYmNoXGYx WCokK8kjZcXyHcJbCuq wYXJ9 MD BarrientosCT, BRAIN, WITHOUT [id number] 12:22:00Unlisted Reason for Exam - Click Yes and Enter Reason Below->No [facility] 1950 Sex: MFINAL [...] MDReport Verified Date/Time: 09/11/2020 12:22:16 Reading Location: [facility] B1 C013V Neuro Reading Room URINALYSIS W/ [id number] 11:21:00 Test Item Value Reference Range Interpretation [...] 1663) SOURCE(BEAKER) (test code = 2795) TROPONIN [id number] 11:12:00 Test Item Value Reference Range Interpretation [...] failure, acidosis, acute neurological disease, and persistent tachyarrhythmia.Wastewater Project Engineer ID - [id number] ACID, VENOUS 2020-09-11 10:57:00 Test Item Value Reference Range Interpretation Comments LACTATE BLOOD 1.55 mmol/L See_Comment [Automated me ssage] VENOUS (2) (BEAKER) The syst em which (test code = 2872) generated this result transmitted ref erence range: 0.50-<2. 00. The reference range was not used to interpr et this result as normal/abnormal . Wastewater Project Engineer ID - [id number] ID - [id number] ID - [id number] ID - [id number] CBC W/PLT COUNT & AUTO [id number] 10:43:00 Test Item Value Reference Range Interpretation [...] (BEAKER) (test code = 2801) COMPREHENSIVE METABOLIC [id number] 10:43:00 Test Item Value Reference Range Interpretation [...] S NOT APPLICABLE FOR DIALYSIS PATIEN TS. Wastewater Project Engineer ID - [id number] ID - [id number] ID - [id number] ID - [id number] ID - [id number] ID - [id number] ID - [id number] ID - [id number] ID - [id number] ID - [id number] ID - [id number] ID - [id number] ID - [id number] ID - [id number] ID - [id number] ID - [id number] ID - [id number] ID - [id number] ID - [id number] KINASE (CK)2020-09-11 10:38:00 Test Item Value Reference Range Interpretation Comments CREATINE KINASE TOTAL (BEAKER) (test 266 U/L 40-250 H code = 380) Wastewater Project Engineer ID - [id number] TIME/[id number] 10:34:00 Test Item Value Reference Range Interpretation Comments PROTIME (BEAKER) 10.9 seconds 9.3-12.0 Final Infor mation (test code = 759) (Auto Outp ut) INR (BEAKER) (test 0.98 See_Comment Final Inf ormation code = 370) (Auto Output) [Automated mess age] The system SureFire generated this result transmitted ref erence range: <=5.90. The reference range was not used to int erpret this result as normal/abnormal . RECOMMENDED COUMADIN/WARFARIN INR THERAPY RANGESSTANDARD DOSE: 2.0 - 3.0 Includes: PROPHYLAXIS forvenous thrombosis, systemic embolization; TREATMENT for venous thrombosis and/or pulmonary embolus.HIGH RISK: Target INR is 2.5-3.5 for patients with mechanical heart valves.[id number] 10:34:00 Test Item Value Reference Range Interpretation Comments PARTIAL THROMBOPLASTIN 22.8 seconds 23.0-35.0 L Final Information TIME (BEAKER) (test (Auto Ou tput) code = 760) POCT-GLUCOSE [id number] 10:29:00 Test Item Value Reference Range Interpretation Comments POC-GLUCOSE METER 106 mg/dL 70-110 : [facility] (BEALBERTO) (test code [address], = 1538) [facility] 77 478: Wastewater Project Engineer/Techni mae ID = [id number] for Irene Dorman, CHEST, 1 VIEW, NON [id number] 10:16:00Reason for exam:- >HYPOTENSIONReason for exam:->coughShould this be performed at the bedside?->Yes[facility] : 1950 Sex: MFINAL REPORT INDICATION: HYPOTENSIONcough COMPARISON: None TECHNIQUE: Single frontal view of the chest. FINDINGS: Lungs and pleura: Mild bibasilar atelectasis No effusion.Heart and mediastinum: Normal heart size. Unremarkable mediastinal contours.Osseous structures: No acute abnormality.Other: None. IMPRESSION: No acute intrathoracic abnormality. Signed: Jayne Maloney Verified Date/Time: 09/11/2020 10:16:33 Reading Location: [facility] Radiology Reading Room Cytology Image-Guided FNA Ccapyldkwqxiyg3043-11-09 21:22:39 Test Item Value Reference Range Interpretation Comments Gross Description (test h7ggzLDvCPVrzEC3EUPkPM code = [id number]) Gge3fqp2DyiJLbdLXaUAan aEItmpSmdt18kEG5vH32VI 4vBAByVcC4JDCyuxH3Fqz1 CGDnMWTzbOPmF643y3yea9 dpueJryJC3QAXfZZPsD0Eh FG3xMLZvvOPkF81trFPpAN O2DYFiDCGxgOYtFDRvIBY5 NEKvtRPtH7eoVBMaME9nus laYUzbDTuoAGRnkAV8NAFm lMOuV7WvFZCyXLggOMAjrc v6VkSvJq3qpWQdpDioRCgp AMPur2jfARUusCRmBHT0XJ vxfLQuLJGgVGOwBUh3EOEt ZFzvwSEqAB1lcOusVrwdvF tlf8AuaMQpYBlxKZPkZFUh JZgaRNXpP1CQCKAqIlW8XI z8OmHzZKf4AQknD4HFVLBb SKV4WGJvBYk5CgN0YHi1GK VHOi7bIlR9NaL5OnA2EKW4 DtW7QBlcmXAfXVmaNxcrUR xmIEFyaWFsIFxcZnMgMTAg OMksPkGhVF5yrAeoxTIxcq xiXGZzMjAgQTpccGFyXGIw NBTiVKANrNDdsG5vgtXzmX InS9MsBBG2VBCpcsGsBFTk ZmYgUXVpazsgOCBQYXAgU3 NntL9wU3wiDCShWDGrhhSc HMMnxMndVRSjw4IbQ4M3RE ImTFpwf6pqOAKgPRdof3Xg AOmNHQTJCZ1XOA4kjPB5HG tAKLFYS8hZwYD2DoGfaQH0 KZ71LXIwEMOaqAWjRAslM7 52R8atLKCwFRZzw2QsQ6Np d7gdrPAuVFfrRwlvySVfuv X1EAjQOXZQUBfQKvYnBE9e PVdJTERCRUdJTnwyfXtcZm fjnwLsySUtWdBlqK8vdU9w m7ychMSwMEruDnwspVPxym Z6ILlGOEYXGSrQMhSfKU7f VPtSAMOQXuC5Wp28ITApTX EivZJnICbhS139LVEgOUim JOUsq4FmT6JbRuZtRJgpSa NnGLZupAkrb9rliUGlEBsz AwnihSKxtoD9JKkRFNCPMT mPKpIpTZ0oMYlLW6RPXnU8 XeP7KkB4NPmmuYivDeohiq ExxJLdLrArdH9jlRpnoA6g ZnMyMFxjZjEgIGluIFJQTU fluNIvGMJwA9j0g3DvkQ2p cGFyXHBhciBTaXplOiAxMS 02JWmuSJAqvWulHUInSP1u AXIyPYLoUVBur2Mlx11dvk NuLn0mFBQlMKGyoRTtCDNs ABR6PKN2LQqwxkHwGIInND xdvv30EQM3f8tvjJWvZKzx KpmtiJEzpvB6SBsAQWEOMC tMJcEtSF1mNNkYH3VWPImO ChcqYWb7SBvawGW7p5djlJ Yei3j6VWfzADZ7tIkip2tj gLLpQQzlTfvluDAaenV4RU sCLEEWKCsXGhIdHA5zQWuW M6XAXtG8VoX3UkX1J3zwaU bnVmpberUgkKKcUpQduD3g zCollP9eKlQdHAugYxGiCK M5KHHjNnJCoC6oaL10EXXb sSSlZHR8TS1fzUsdGQMgH5 QiY4OjpzK0SNNnexz1RMVP LMWFFCoEEO6FSDBYZEDZQR 7JUAtMCfBnFVZ4QFfnVKY0 DbXfXmN3AvR1Gf8sGXZQXM SCLDfTGU4MPUDCKRRIYC8S XiIyB9zXTJFDKrKcBPVAJM BDBYBfDyUTCT6jMqa6cJai n7lKQQMOFEMVZ58LOUMIWS HOZ7KDREAINOEFVMmPRCVD Th9XPRIMSNEGAE5GXIjZLr FsUMaygOAeGPkiZGQ3SHk3 QhLwuCJfi5fcJI7pQVeaHb A4TtW8XzdrwUAaDmWsiFAO HXWWHWsQLDTMHa5KKNOEFL USND0XEwShP5KINR2NBo4N UTRJONNZLJ1YSLjKCqQkE1 LFLT0EGm3KFCMQSMNSXE6Z IsAxENUBT1VBAmOYX2lwEA RLMQNUNJJsPlQLHA8rTIKF HT9CZLJCBHCMJ51HRKPOVR IXZ9ZJTJ1= Immediate Assessment Borderline (test code = 9837) cellularity, further review needed, additional tissue recommended Major Classification Indeterminate A (test code = 9839) Diagnosis (test code = e6ywgNIkRMOvyFY7XAPbOM 34) Oeq5ctb0YbtOKjhQNqIJfw cHRnimHlns51qIW4eB68CA 2bWLOgQgH8LZLaxaS7Aoy9 DFSoIFQdhXTdU995p5wzl2 cuxgUnnMM7WNOeBRHrG8Ml VX2lIENujKMiD42usZBeQO S2WOGnCHSywXCuAOYtNMY9 JYKzcBMxA7qnWWGeHY5hhj ckZOmbDIulRZJoiYB9UHOg gAVwT5GnZGBaZNzjHCKrxe c6XaHeNs0qjYGyuAmdVCvo YXJkXHBsYWluXGZzMjBcY2 BcQZPgANWxVtQyfRijv0Zz BLPpVTZ0MP0vG1lbHGHwnr UgbmVlZGxlIGFzcGlyYXRp o217IPLlquy2CLOyzQFpIZ xpNzIwXGxpbjcyMFxjZjAg UmFyZSBhdHlwaWNhbCBkZW dlbmVyYXRlZCBjZWxscyBp huVySGLaG5ozqa59drFyx5 VocnErsq8xvGJpUG5gCFCy dXNoZWQgbHltcGhvaWQgdG dip2ViHOimUHSbL03slHVk dClccGFyfQ== Comment (test code = s4lphPAdFFEdwEG4GAUcJS 9835) Xys6dgk5JeqUQwtIMaLGwf iNVjqfHdpk81kUY3pK22DA 3rUWRdToA6OSEjwnP5Xip5 CMHiCSVozIHsN814m9ujh0 crirRaaMK4eLsnMWQhwdfd XsF2VJalNBDsguqnOKm9CL pzAWQcuOU0EKYuvKBqX3Vn GSHeAU0mojq6AMG6CSekDW PlYwE1HJJutKAzRZRhqIyd PIifa552YUW1LkFyQQSjrq LpyDgaeX5kIfAsEFXGsWEy cXI8L3p3qCIqSmF4nLMkeG LdhZers9ZtSGVsTTZzm50r ANXlwMvbrVJpo1NzbrG8qK 9pJRPtCFXzsTPgUYOsgX1k AAJpAHBysdr4yRSdBGQaFR pjk0Tivu6cCRcnPYKlQSTt LAK0zQgeFQHmuArihuXwrr Qni37vbNVjFP97kEqtQNVe xEkzWHRyO04cZXNxXRLdtF XoLpgnvBQ5URwPOeEcQrP9 DlXvTJRekfOodSY9yCLhNZ X2BEo7IPEuz60iIIBmwx5= Retained/Biomarker a6yrvVZfWZRmgZF9GDFyEI Testing (test code = Mkx6zzu2SouHByoXSyYUgv 9838) rLClbpZfbt56wNL1eJ86PR 0wNULzRfR5XUAcecJ9Mpw6 GHJiDHAseHIeP570k1mkx7 zvpiOthER0aFcoNOSeekip ByR2QUmlWEYrejddJKd9MT dfYNGfsYL0MCJjbJOvL2St PGRtZH3ojsy3SLB0UIsiDD RhHbZ9YBTfnMYsIGUadFil SMsui564FOS8DsCnEFQcci BugLdhnH1nLmXzNVOEQbtd LECiU3ebIIX8 Informational Points k1lpyJQuXGOmuVKmLmAoUS (test code = 9836) ZcFLFom7wqGPEfbVUmPsPi MzNcZnRuYmpcdWMxXGRlZm Cqt9hzu583yBTyp8ffKELy BiY0lQHtUUZpyULgH027CA UmWGwgk8wlb2HnGXEawCPu o8N7HFYUSUerFORIZWm2r5 bmDxMuGuM1qSCnFAgsH1cy wzIloJFyVXAeRPx7qJ62YT XpfF0nmKTiBNkeueFhMrZ2 FUfyLSAgAoQ9OLLloBOeOE YjB1scTYHfDXrzVRNxUKsv xLXpUXX1fDsmm0M6bKRuvV JmeGguXhJgGzOcLcTCi5Zk GFs0rBcoJ0IhHAPhGlA3pT QgUGFyYWdyYXBoIEZvbnQ7 yT94BZizosS0aLJzg5Yqa7 5cc716tA1zsUWaBBY8PREb YFFswLVnBXTiPOW9HQTgqM ZoR5psJDXaWK2ycsavLUje QOpaQMDmzBZ3ONGytCSfW7 VhLFVtKQcrSCJgcww1FwVl Gm6gfVZusXuvXVszt5jsq6 rawYTeLck5SRSwDaNdMpah USchm2Ueu2xoJWPzhd4jIZ T0vGWkgBsrd6X6pYRsPQGz dULsseOrVVWoQxW2BAjiCY 2xhe64OXRqCFU0hc3zmQBt zRsbnpAqtNKcBGxrP4JkYN Bgl312GPXvP0WkWTMyf5J7 apXaKfTbXOKikZZ1cjH7DX OqSCu5eJDyhzP3rtXihRAm Q3yebA1sGNPtVY2bnglly1 clYUviZFxyMHPhzYB2raB0 USQahXJdP6YjzG7cTHKnGF lqFUHhdjh7YpRxWk1qlFKu eTcyMFxzYmtwYWdlXHBnbm NvbnRccGduZGVjXHBsYWlu XHBsYWluXGYwXGZzMjRccW ekaHcvkJ6iCrAqZxRaBRlu PL3tUBGxX6pusJKiWMQdXF ZhV5xbVoSclX4tvUocTInj scU7UUyaN18mZNN4GYX3zv XbGBYnwaBgQZTfSNJfWE8y yPXqSYGuZFZoUH2mKBJ2LY tikFXzHFIeZLDiIPCsr3Wi ET7vWMVsaHCzYTU4MUEja9 BvR6EvVKI1QJFajS8lHAVr eSBVVCBNRCBBbmRlcnNvbi PKKTIfu8heC9nyHN1gJLqy Fb0hDYRaaotyYNXirRGivp SxTYJlOTAfKMQtz6XhCJuh zaEorz00MUTqZE5yl6SyE8 gswNMntBn6VCFmFUJsXGLy a0ZjOFRmgk36SHKkHuifvC ufRSMdDo0hXn2lVHDtnvHf IAR7TmKULR5bqhdiuENbnK qpuu8lETHxRIewGHLxJRNq MjJcbGFuZzEwMzNcaGljaF saSruyGhPaFCVfVQciJ4vc ZjJcZnMyMlxwYXJ9 Lab Interpretation Abnormal (test code = 15857-0) MD Mora DRUG SCREEN, [id number] 19:07:00 Test Item Value Reference Range Interpretation [...] situations. Chain of custody not maintained. Some nnqt-lei-slwnucu medications, as well as adulterants, may cause inaccurate results. Clinical correlation should be applied. A more comprehensivedrug screen or confirmation of a detected drug may be performed upon request.Wastewater Project Engineer ID - [id number] ID - [id number] ID - [id number] ID - [id number] ID - [id number] ID - [id number] ID - [id number] ID - [id number] URINALYSIS W/ [id number] 16:12:00 Test Item Value Reference Range Interpretation [...] 1663) SOURCE(BEAKER) (test code = 2795) TROPONIN [id number] 15:12:00 Test Item Value Reference Range Interpretation [...] failure, acidosis, acute neurological disease, and persistent tachyarrhythmia.Wastewater Project Engineer ID - [id number] 15:10:00 Test Item Value Reference Range Interpretation Comments ACETAMINOPHEN LEVEL (BEAKER) (test < ug/mL 10.0-30.0 L code = 344) Wastewater Project Engineer ID - [id number] ID - [id number] ID - [id number] ID - [id number] 15:10:00 Test Item Value Reference Range Interpretation Comments SALICYLATE LEVEL (BEAKER) (test 0.9 mg/dL 20.0-30.0 L code = 764) Wastewater Project Engineer ID - [id number] 15:06:00 Test Item Value Reference Range Interpretation Comments ETHANOL (BEAKER) < mg/dL See_Comment [Automated message] The (test code = 400) system [employer] generated this result tra nsmitted reference range : <=10. The reference r [place] was not used to int erpret this result as normal/abnormal . Wastewater Project Engineer ID - [id number] 15:05:00 Test Item Value Reference Range Interpretation Comments MAGNESIUM (BEAKER) (test code = 2.3 mg/dL 1.5-3.0 627) Wastewater Project Engineer ID - [id number] ID - [id number] ID - [id number] ID - [id number] METABOLIC [id number] 15:05:00 Test Item Value Reference Range Interpretation [...] S NOT APPLICABLE FOR DIALYSIS PATIEN TS. Wastewater Project Engineer ID - [id number] ID - [id number] ID - [id number] ID - [id number] ID - [id number] ID - [id number] ID - [id number] ID - [id number] ID - [id number] ID - [id number] ID - [id number] ID - [id number] ID - [id number] ID - [id number] ID - [id number] ID - [id number] 15:02:00 Test Item Value Reference Range Interpretation Comments PHOSPHORUS (BEAKER) (test code = 4.0 mg/dL 2.5-4.5 604) Wastewater Project Engineer ID - [id number] W/PLT COUNT & AUTO [id number] 14:46:00 Test Item Value Reference Range Interpretation [...] H PERCENT (BEAKER) (test code = 2801) COVID-19 (ID NOW RAPID TESTING)2020-01-29 18:21:00 Test Item Value Reference Range Interpretation Comments SARS-CoV-2 Rapid ID NOW Not Detected Not Detected (test code = 52073-1) DARCI (test code = DARCI) ID NOW COVID-19 Assay is an isothermal nucleic acid amplification test intended for the qualitative detection of nucleic acid from SARS-CoV-2 viral RNA in nasopharyngeal (MARKETING COMMUNICATIONS MANAGER) specimens. It is used under Emergency Use Authorization (EUA) by FDA. The limit of detection (LOD) of the assay is 125 Genome Equivalents/mL. A positive result is indicative of the presence of SARS-CoV-2 RNA. ?Clinical correlation with patient history and other diagnostic information is necessary to determine patient infection status. A negative (Not Detected) result does not preclude SARS-CoV-2 infection. In patients with clinical symptoms and other tests that are consistent with SARS-CoV-2 infection, negative results should be treated as presumptive negative and a new specimen should be tested with alternative PCR molecular test. Invalid: Please collect a new specimen for repeat patient testing if clinically indicated. Lab Interpretation Normal (test code = 48938-7) [id number] 09:31:00 Test Item Value Reference Range Interpretation Comments eGFR (test code = eGFR) 69 [facility]2017-04-06 09:31:00 Test Item Value Reference Range Interpretation Comments Glucose Lvl (test code = Glucose Lvl) 104 70-99 [facility]2017-04-06 09:31:00 Test Item Value Reference Range Interpretation Comments Potassium Lvl (test code = Potassium 4.0 3.5-5.1 Lvl) [facility]2017-04-06 09:31:00 Test Item Value Reference Range Interpretation Comments Sodium Lvl (test code = Sodium Lvl) 140 135-145 [facility]2017-04-06 09:31:00 Test Item Value Reference Range Interpretation Comments Creatinine Lvl (test code = Creatinine 1.10 0.50-1.40 Lvl) [facility]2017-04-06 09:31:00 Test Item Value Reference Range Interpretation Comments BUN (test code = BUN) 21 7-22 [facility]2017-04-06 09:31:00 Test Item Value Reference Range Interpretation Comments AGAP (test code = AGAP) 13.0 10.0-20.0 [facility]2017-04-06 09:31:00 Test Item Value Reference Range Interpretation Comments CO2 (test code = CO2) 27 24-32 [facility]2017-04-06 09:31:00 Test Item Value Reference Range Interpretation Comments Calcium Lvl (test code = Calcium Lvl) 8.2 8.5-10.5 [facility]2017-04-06 09:31:00 Test Item Value Reference Range Interpretation Comments Chloride Lvl (test code = Chloride Lvl) 104 95-109 [facility]2017-04-05 10:06:00 Test Item Value Reference Range Interpretation Comments Magnesium Lvl (test code = Magnesium 2.6 1.8-2.4 Lvl) [id number] 10:06:00 Test Item Value Reference Range Interpretation Comments AGAP (test code = AGAP) 15.4 10.0-20.0 [id number] 10:06:00 Test Item Value Reference Range Interpretation Comments eGFR (test code = eGFR) 69 [facility][id number] 10:06:00 Test Item Value Reference Range Interpretation Comments Glucose Lvl (test code = Glucose Lvl) 110 70-99 [facility]NkyjliaHEVDBZXNDBQO6292-01-02 10:06:00 Test Item Value Reference Range Interpretation Comments BUN (test code = BUN) 26 7-22 [facility]RdfuqtgXTCZNVDQIFGB7571-52-17 10:06:00 Test Item Value Reference Range Interpretation Comments Chloride Lvl (test code = Chloride Lvl) 105 95-109 [facility] HospitalQltkxnoCACCMDIAWYKU5751-53-65 10:06:00 Test Item Value Reference Range Interpretation Comments Creatinine Lvl (test code = Creatinine 1.10 0.50-1.40 Lvl) [facility] HospitalHhnixkbLAZVFUDKIKFM5704-06-26 10:06:00 Test Item Value Reference Range Interpretation Comments Sodium Lvl (test code = Sodium Lvl) 137 135-145 [facility] HospitalWtwluulSHJXUNOPBPMQ6156-69-61 10:06:00 Test Item Value Reference Range Interpretation Comments Potassium Lvl (test code = Potassium 4.4 3.5-5.1 Lvl) [facility] HospitalFdwwnjsHBLRTYBUPJSJ8048-31-03 10:06:00 Test Item Value Reference Range Interpretation Comments CO2 (test code = CO2) 21 24-32 [facility] HospitalGatjmavYRHLCJJUDXKW8606-27-47 10:06:00 Test Item Value Reference Range Interpretation Comments Calcium Lvl (test code = Calcium Lvl) 8.1 8.5-10.5 [facility]LbhrntvYHTNRTUXJY2641-76-33 10:06:00 Test Item Value Reference Range Interpretation Comments Basophils (test code = 0.3 See_Comment [Aut omated message] The Basophils) system which ge nerated this result tra nsmitted reference range : <=1.0. The reference r [place] was not used to int erpret this result as normal/abnormal . [facility] HospitalOcruaviVCJJYTYEJG9236-32-74 10:06:00 Test Item Value Reference Range Interpretation Comments Segs-Bands # (test code = Segs-Bands #) 9.5 1.5-8.1 [facility] HospitalDmxyulmAQOZPKKGVW9199-02-95 10:06:00 Test Item Value Reference Range Interpretation Comments Lymphocytes # (test code = Lymphocytes 1.2 1.0-5.5 #) [facility] HospitalHhwaagzFHICYIIJZF6971-46-57 10:06:00 Test Item Value Reference Range Interpretation Comments Monocytes # (test code 1.4 See_Comment [Aut omated message] The = Monocytes #) system which generated this result tra nsmitted reference range : <=0.8. The reference r [place] was not used to int erpret this result as normal/abnormal . [facility] HospitalZbqlhxcBRGKTFXNGZ4902-61-81 10:06:00 Test Item Value Reference Range Interpretation Comments Basophils # (test code 0.0 See_Comment [Aut omated message] The = Basophils #) system which generated this result tra nsmitted reference range : <=0.2. The reference r [place] was not used to int erpret this result as normal/abnormal . [facility] HospitalCwsquvhRFUVGWTALT2240-33-76 10:06:00 Test Item Value Reference Range Interpretation Comments Eosinophils # (test code 0.2 See_Comment [A utomated message] The = Eosinophils #) system whic h generated this result tra nsmitted reference range : <=0.5. The reference r [place] was not used to int erpret this result as normal/abnormal . [facility] HospitalHsjdyinVJKBWWTVGZ8272-52-55 10:06:00 Test Item Value Reference Range Interpretation Comments Polychrom (test code = Moderate *ABN*(06/29/16 Polychrom) 5:06 AM) [facility] HospitalZtjctokMFDJIRCYSD0882-15-00 10:06:00 Test Item Value Reference Range Interpretation Comments Plt Morph (test code = Normal (06/29/16 5:06 AM) Plt Morph) [facility] HospitalBunzyibYICRIBXPJY4861-85-73 10:06:00 Test Item Value Reference Range Interpretation Comments Lymphocytes (test code = Lymphocytes) 9.7 20.0-40.0 [facility] HospitalSpwrksgRQMRKBZCXF9034-65-47 10:06:00 Test Item Value Reference Range Interpretation Comments Segs (test code = Segs) 77.0 45.0-75.0 [facility] HospitalNtpfoysLIIDYXXUAY9336-36-17 10:06:00 Test Item Value Reference Range Interpretation Comments Eosinophils (test code = 1.6 See_Comment [A utomated message] The Eosinophils) system which ge nerated this result tra nsmitted reference range : <=4.0. The reference r [place] was not used to int erpret this result as normal/abnormal . [facility] HospitalGzvviwwZAUAHCWQNA7644-92-93 10:06:00 Test Item Value Reference Range Interpretation Comments Monocytes (test code = Monocytes) 11.4 2.0-12.0 [facility]QietwcySGLEDKFBJT5679-02-44 10:06:00 Test Item Value Reference Range Interpretation Comments MCH (test code = MCH) 28.6 pg 27.0-31.0 [facility] HospitalAnayavlDDJRBGVPKO7057-99-19 10:06:00 Test Item Value Reference Range Interpretation Comments Platelet (test code = Platelet) 163 133-450 [facility] HospitalHuuqpjkJJIFOPMHED9136-90-62 10:06:00 Test Item Value Reference Range Interpretation Comments RDW (test code = RDW) 14.2 11.5-14.5 [facility] HospitalIugjdwcCHGWAQLZQM9231-17-38 10:06:00 Test Item Value Reference Range Interpretation Comments MCHC (test code = MCHC) 33.9 32.0-36.0 [facility] HospitalKoiyklrKGAHUVWBAW3532-94-54 10:06:00 Test Item Value Reference Range Interpretation Comments MPV (test code = MPV) 8.3 7.4-10.4 [facility] HospitalWxclsboAWRECNFPBI4217-56-34 10:06:00 Test Item Value Reference Range Interpretation Comments RBC (test code = RBC) 3.11 4.70-6.10 [facility] HospitalYsmmymzMVNHVHSXKG5810-85-94 10:06:00 Test Item Value Reference Range Interpretation Comments WBC (test code = WBC) 12.3 3.7-10.4 [facility] HospitalMpvriqoTFJVWMCOIC9456-05-57 10:06:00 Test Item Value Reference Range Interpretation Comments MCV (test code = MCV) 84.3 80.0-94.0 [facility] HospitalIstqrsfSSWMSDMWZF8909-89-27 10:06:00 Test Item Value Reference Range Interpretation Comments Hct (test code = Hct) 26.2 42.0-54.0 [facility] HospitalIhndoraBOIUTKZTZG9008-82-31 10:06:00 Test Item Value Reference Range Interpretation Comments Hgb (test code = Hgb) 8.9 14.0-18.0 [facility]2017-04-04 10:42:00 Test Item Value Reference Range Interpretation Comments eGFR (test code = eGFR) 56 [facility]2017-04-04 10:42:00 Test Item Value Reference Range Interpretation Comments Calcium Lvl (test code = Calcium Lvl) 8.3 8.5-10.5 [facility]2017-04-04 10:42:00 Test Item Value Reference Range Interpretation Comments Potassium Lvl (test code = Potassium 4.5 3.5-5.1 Lvl) [facility]2017-04-04 10:42:00 Test Item Value Reference Range Interpretation Comments CO2 (test code = CO2) 24 24-32 [facility]2017-04-04 10:42:00 Test Item Value Reference Range Interpretation Comments Chloride Lvl (test code = Chloride Lvl) 107 95-109 [facility]2017-04-04 10:42:00 Test Item Value Reference Range Interpretation Comments Glucose Lvl (test code = Glucose Lvl) 118 70-99 [facility]2017-04-04 10:42:00 Test Item Value Reference Range Interpretation Comments BUN (test code = BUN) 29 7-22 [facility]2017-04-04 10:42:00 Test Item Value Reference Range Interpretation Comments Sodium Lvl (test code = Sodium Lvl) 139 135-145 [facility]2017-04-04 10:42:00 Test Item Value Reference Range Interpretation Comments Creatinine Lvl (test code = Creatinine 1.30 0.50-1.40 Lvl) [facility]2017-04-04 10:42:00 Test Item Value Reference Range Interpretation Comments AGAP (test code = AGAP) 12.5 10.0-20.0 [facility]2017-04-04 10:42:00 Test Item Value Reference Range Interpretation Comments Magnesium Lvl (test code = Magnesium 2.7 1.8-2.4 Lvl) [facility] HospitalZyuolxkYUFRNWRSFW0528-52-25 10:42:00 Test Item Value Reference Range Interpretation Comments Hgb (test code = Hgb) 9.0 14.0-18.0 [facility] HospitalGjqlonqENGUXVJKOW3263-33-20 10:42:00 Test Item Value Reference Range Interpretation Comments Hct (test code = Hct) 27.7 42.0-54.0 [facility] HospitalBmlnoatGOGRZJBLFC1887-20-37 10:42:00 Test Item Value Reference Range Interpretation Comments MCV (test code = MCV) 87.2 80.0-94.0 [facility] HospitalAtcvutkSJUEUFWWSU3707-29-84 10:42:00 Test Item Value Reference Range Interpretation Comments MCH (test code = MCH) 28.5 pg 27.0-31.0 [facility] HospitalOiwmixyGUZFUSVJLU5932-87-58 10:42:00 Test Item Value Reference Range Interpretation Comments MCHC (test code = MCHC) 32.6 32.0-36.0 [facility] HospitalZsqdxdjQYPKFWINPS7776-13-75 10:42:00 Test Item Value Reference Range Interpretation Comments WBC (test code = WBC) 11.9 3.7-10.4 [facility] HospitalSwfspgiYRVKKVKWDK8423-14-53 10:42:00 Test Item Value Reference Range Interpretation Comments RBC (test code = RBC) 3.17 4.70-6.10 [facility] HospitalRdmzwhaWHZDUFLMVT0930-02-80 10:42:00 Test Item Value Reference Range Interpretation Comments RDW (test code = RDW) 14.6 11.5-14.5 [facility] HospitalNjhppbrEQBSSLXGNA5018-52-46 10:42:00 Test Item Value Reference Range Interpretation Comments Platelet (test code = Platelet) 136 133-450 [facility] HospitalAlwyhoiKERBAAOTOL5517-42-26 10:42:00 Test Item Value Reference Range Interpretation Comments MPV (test code = MPV) 8.6 7.4-10.4 [facility] HospitalAwhwzubOWTRHSGJQE9482-61-67 10:42:00 Test Item Value Reference Range Interpretation Comments Lymphocytes # (test code = Lymphocytes 1.5 1.0-5.5 #) [facility] HospitalEhsznxxQRLVQJEFKB6706-20-17 10:42:00 Test Item Value Reference Range Interpretation Comments Monocytes # (test code 1.4 See_Comment [Aut omated message] The = Monocytes #) system which generated this result tra nsmitted reference range : <=0.8. The reference r [place] was not used to int erpret this result as normal/abnormal . [facility] HospitalWldvjgtOWNLJVWSDU9864-40-14 10:42:00 Test Item Value Reference Range Interpretation Comments Eosinophils # (test code 0.1 See_Comment [A utomated message] The = Eosinophils #) system whic h generated this result tra nsmitted reference range : <=0.5. The reference r [place] was not used to int erpret this result as normal/abnormal . [facility] HospitalBmwvbdpSVALLQUQEP6509-95-65 10:42:00 Test Item Value Reference Range Interpretation Comments Lymphocytes (test code = Lymphocytes) 12.3 20.0-40.0 [facility] HospitalQrraglfFTASAQMGVB0732-83-53 10:42:00 Test Item Value Reference Range Interpretation Comments Monocytes (test code = Monocytes) 11.6 2.0-12.0 [facility] HospitalCxzyruoLHSXFQEXMF5180-57-95 10:42:00 Test Item Value Reference Range Interpretation Comments Eosinophils (test code = 1.1 See_Comment [A utomated message] The Eosinophils) system which ge nerated this result tra nsmitted reference range : <=4.0. The reference r [place] was not used to int erpret this result as normal/abnormal . [facility] HospitalBckxjavLCFJMPQHEY0325-81-89 10:42:00 Test Item Value Reference Range Interpretation Comments Basophils (test code = 0.3 See_Comment [Aut omated message] The Basophils) system which ge nerated this result tra nsmitted reference range : <=1.0. The reference r [place] was not used to int erpret this result as normal/abnormal . [facility] HospitalOgtylkiQSVJWLXZVX6949-26-47 10:42:00 Test Item Value Reference Range Interpretation Comments Segs-Bands # (test code = Segs-Bands #) 8.9 1.5-8.1 [facility] HospitalQdqwihoAYQROVVQRD9555-47-03 10:42:00 Test Item Value Reference Range Interpretation Comments Segs (test code = Segs) 74.7 45.0-75.0 [facility]2017-04-03 09:50:00 Test Item Value Reference Range Interpretation Comments Magnesium Lvl (test code = Magnesium 2.4 1.8-2.4 Lvl) [facility] HospitalQvluotpKPZVQSUXJE3531-91-41 09:50:00 Test Item Value Reference Range Interpretation Comments WBC (test code = WBC) 18.6 3.7-10.4 [facility] HospitalJpewgxmQOTNNDIAIK1287-33-63 09:50:00 Test Item Value Reference Range Interpretation Comments RDW (test code = RDW) 14.7 11.5-14.5 [facility] HospitalXdlukffBPKUMFHTTA7741-38-49 09:50:00 Test Item Value Reference Range Interpretation Comments MCHC (test code = MCHC) 33.1 32.0-36.0 [facility] HospitalFhgqnceTZTWFVXVQN9351-71-08 09:50:00 Test Item Value Reference Range Interpretation Comments Hct (test code = Hct) 29.5 42.0-54.0 [facility] HospitalCirazdyTIDQRTPCYR0731-29-66 09:50:00 Test Item Value Reference Range Interpretation Comments MCH (test code = MCH) 28.1 pg 27.0-31.0 [facility] HospitalWsmrxreLCPRRBFEZR1057-28-02 09:50:00 Test Item Value Reference Range Interpretation Comments MCV (test code = MCV) 84.7 80.0-94.0 [facility] HospitalAkmnslfFKIJAZBPMW1395-75-38 09:50:00 Test Item Value Reference Range Interpretation Comments MPV (test code = MPV) 9.7 7.4-10.4 [facility] HospitalVibnvdaXZURHEZRPZ6741-29-17 09:50:00 Test Item Value Reference Range Interpretation Comments Platelet (test code = Platelet) 118 133-450 [facility] HospitalMjkputoIDRLZOLZPZ1139-83-76 09:50:00 Test Item Value Reference Range Interpretation Comments Hgb (test code = Hgb) 9.8 14.0-18.0 [facility] HospitalZoztyliDTFCNTSIJO6520-58-17 09:50:00 Test Item Value Reference Range Interpretation Comments RBC (test code = RBC) 3.48 4.70-6.10 [facility] HospitalIjtmhrdCYNQVDDPAL3484-23-01 09:50:00 Test Item Value Reference Range Interpretation Comments Lymphocytes # (test code = Lymphocytes 2.0 1.0-5.5 #) [facility] HospitalValontwKKSSEOEOXS0574-60-36 09:50:00 Test Item Value Reference Range Interpretation Comments Segs (test code = Segs) 76.1 45.0-75.0 [facility] HospitalMbonwhdBLJEWATIXD3571-77-47 09:50:00 Test Item Value Reference Range Interpretation Comments Eosinophils (test code = 0.1 See_Comment [A utomated message] The Eosinophils) system which ge nerated this result tra nsmitted reference range : <=4.0. The reference r [place] was not used to int erpret this result as normal/abnormal . [facility] HospitalBqeeggbZXCPFSDPDO6256-85-81 09:50:00 Test Item Value Reference Range Interpretation Comments Monocytes (test code = Monocytes) 12.7 2.0-12.0 [facility] HospitalDittwurDTEBZKXNSI1257-64-28 09:50:00 Test Item Value Reference Range Interpretation Comments Segs-Bands # (test code = Segs-Bands #) 14.2 1.5-8.1 [facility] HospitalEwyrlniOMSXJTCEYN3102-99-43 09:50:00 Test Item Value Reference Range Interpretation Comments Basophils (test code = 0.5 See_Comment [Aut omated message] The Basophils) system which ge nerated this result tra nsmitted reference range : <=1.0. The reference r [place] was not used to int erpret this result as normal/abnormal . [facility] HospitalStmhigaXDKUUZSQLM2038-61-77 09:50:00 Test Item Value Reference Range Interpretation Comments Lymphocytes (test code = Lymphocytes) 10.6 20.0-40.0 [facility] HospitalLafspwnOQIYGEQMDY7825-56-60 09:50:00 Test Item Value Reference Range Interpretation Comments Basophils # (test code 0.1 See_Comment [Aut omated message] The = Basophils #) system which generated this result tra nsmitted reference range : <=0.2. The reference r [place] was not used to int erpret this result as normal/abnormal . [facility] HospitalKeisfodMGJAIIJVVK7277-56-47 09:50:00 Test Item Value Reference Range Interpretation Comments Monocytes # (test code 2.4 See_Comment [Aut omated message] The = Monocytes #) system which generated this result tra nsmitted reference range : <=0.8. The reference r [place] was not used to int erpret this result as normal/abnormal . [facility] WIEXT2522-34-72 08:42:00 Test Item Value Reference Range Interpretation Comments Phosphorus (test code = Phosphorus) 2.0 2.5-4.5 [facility] HospitalSzlhqdwCGKIZWTLZC7144-82-97 08:42:00 Test Item Value Reference Range Interpretation Comments Eosinophils # (test code 0.0 See_Comment [A utomated message] The = Eosinophils #) system whic h generated this result tra nsmitted reference range : <=0.5. The reference r [place] was not used to int erpret this result as normal/abnormal . [facility] HospitalTlfktyhANADEJXFJT8111-85-02 08:42:00 Test Item Value Reference Range Interpretation Comments Basophils # (test code 0.0 See_Comment [Aut omated message] The = Basophils #) system which generated this result tra nsmitted reference range : <=0.2. The reference r [place] was not used to int erpret this result as normal/abnormal . [facility] DWMONOK0728-71-20 08:42:00 Test Item Value Reference Range Interpretation Comments Ca Ion WB (test code = Ca Ion WB) 1.11 1.05-1.25 [facility] NWERENL4800-21-91 08:42:00 Test Item Value Reference Range Interpretation Comments Ca Norm WB (test code = Ca Norm WB) 1.11 1.05-1.25 [facility] DGULMAECQ8043-73-10 08:42:00 Test Item Value Reference Range Interpretation Comments Hgb A1C (test code = Hgb A1C) 6.4 [facility] BFDWC8305-84-30 07:28:00 Test Item Value Reference Range Interpretation Comments Phosphorus (test code = Phosphorus) 1.6 2.5-4.5 [facility]lakePluifnoRWJBKKCPJV5144-15-94 07:28:00 Test Item Value Reference Range Interpretation Comments RBC Morph (test code = Normal (06/25/16 2:28 AM) RBC Morph) [facility]CCC[facility]OYU9910[facility]22 07:28:00 Test Item Value Reference Range Interpretation Comments Plt Morph (test code = Normal (06/25/16 2:28 AM) Plt Morph) [facility] OYVSYGN4689-70-30 07:28:00 Test Item Value Reference Range Interpretation Comments Ca Norm WB (test code = Ca Norm WB) 1.06 1.05-1.[address] [facility]RO[facility] LPYKRHK6079-78-28 07:28:00 Test Item Value Reference Range Interpretation Comments Ca Ion WB (test code = Ca Ion WB) 1.09 1.05-1.25 [facility]ZrwsuxvPAEPMZDHQA5021-00-28 23:42:00 Test Item Value Reference Range Interpretation Comments POC Hematocrit (test code = POC 34.0 42.0-54.0 Hematocrit) [facility]LxbglyyGTXBTKLBMI4434-52-85 23:42:00 Test Item Value Reference Range Interpretation Comments POC Hemoglobin (test code = POC 11.6 14.0-18.0 Hemoglobin) [facility]lakeTpwsqqnTSGPHKFONR0443-01-04 23:42:00 Test Item Value Reference Range Interpretation Comments POC Ion Ca (test code = POC Ion Ca) 1.09 1.05-1.25 [facility]GwtpypiOOKEAXAJMU3913-48-62 23:42:00 Test Item Value Reference Range Interpretation Comments POC Potassium (test code = POC 4.4 3.5-5.1 Potassium) [facility] HospitalHdgfajnUBSRXTTWAD1617-28-34 23:42:00 Test Item Value Reference Range Interpretation Comments POC Sodium (test code = POC Sodium) 143 135-145 [facility]2017-03-31 23:11:00 Test Item Value Reference Range Interpretation Comments A/G Ratio (test code = A/G Ratio) 1.4 0.7-1.6 [facility]2017-03-31 23:11:00 Test Item Value Reference Range Interpretation Comments Globulin (test code = Globulin) 2.1 2.7-4.2 [place] [address]-03-31 23:11:00 Test Item Value Reference Range Interpretation Comments Bili Indirect (test 0.4 See_Comment [Automa jigar message] The code = Bili Indirect) system which generated this result tra nsmitted reference range : <=1.0. The reference r [place] was not used to int erpret this result as normal/abnormal . [facility]2017-03-31 23:11:00 Test Item Value Reference Range Interpretation Comments Bili Direct (test code 0.2 See_Comment [Aut omated message] The = Bili Direct) system which generated this result tra nsmitted reference range : <=0.3. The reference r [place] was not used to int erpret this result as sonido l/abnormal. [facility]2017-03-31 23:11:00 Test Item Value Reference Range Interpretation Comments Bili Total (test code = Bili Total) 0.6 0.2-1.3 [facility]2017-03-31 23:11:00 Test Item Value Reference Range Interpretation Comments Alk Phos (test code = Alk Phos) 38 39-136 [place] [address]-03-31 23:11:00 Test Item Value Reference Range Interpretation Comments AST (test code = AST) 42 See_Comment [Auto mated message] The system which ge nerated this result transmit jigar reference range : <=37. The reference range was not used to interpr et this result as sonido l/abnormal. [place] 132217-03-31 23:11:00 Test Item Value Reference Range Interpretation Comments ALT (test code = ALT) 51 See_Comment [Auto mated message] The system which ge nerated this result transmit jigar reference range : <=65. The reference range was not used to interpr et this result as sonido l/abnormal. [facility]2017-03-31 23:11:00 Test Item Value Reference Range Interpretation Comments Albumin Lvl (test code = Albumin Lvl) 2.9 3.5-5.0 [facility]2017-03-31 23:11:00 Test Item Value Reference Range Interpretation Comments Total Protein (test code = Total 5.0 6.4-8.4 Protein) [facility]2017-03-31 23:11:00 Test Item Value Reference Range Interpretation Comments Phosphorus (test code = Phosphorus) 2.3 2.5-4.5 [facility] HospitalKscpjllFLXRMQVRQS1919-48-15 23:11:00 Test Item Value Reference Range Interpretation Comments FSP (test code = FSP) <5 ug/ml [facility] HospitalCwwnnnbRKUIVWUMWX4064-61-99 23:11:00 Test Item Value Reference Range Interpretation Comments Fibrinogen Lvl (test code = Fibrinogen 206 230-510 Lvl) [facility] HospitalPcmyiraFNDBWIPDOZ9242-06-41 23:11:00 Test Item Value Reference Range Interpretation Comments PTT (test code = PTT) 34.9 s 22.9-35.8 [facility] HospitalDbzepejBDYFMAOVUI8934-96-31 23:11:00 Test Item Value Reference Range Interpretation Comments INR (test code = INR) 1.27 0.85-1.17 [facility] HospitalTfocysfMNKGICVVCT5795-25-35 23:11:00 Test Item Value Reference Range Interpretation Comments PT (test code = PT) 16.2 s 12.0-14.7 [facility]PARATHYROID OHKMPIA8284-07-85 23:11:00 Test Item Value Reference Range Interpretation Comments Ca Norm WB (test code = Ca Norm WB) 1.09 1.05-1.[address] [facility]RO[facility] DXZEOLN3802-17-27 23:11:00 Test Item Value Reference Range Interpretation Comments Ca Ion WB (test code = Ca Ion WB) 1.10 1.05-1.25 [facility] HospitalBgwhtbpIFDIQXDRJA4013-32-91 22:13:00 Test Item Value Reference Range Interpretation Comments Fibrinogen Lvl (test code = Fibrinogen 196 230-510 Lvl) [facility] HospitalPcvxldyYDAKPOCRDM3371-30-39 22:13:00 Test Item Value Reference Range Interpretation Comments PTT (test code = PTT) 32.8 s 22.9-35.8 [facility] HospitalWfllbbnSRGFDTOFEE5680-06-84 22:13:00 Test Item Value Reference Range Interpretation Comments PT (test code = PT) 16.6 s 12.0-14.7 [facility] HospitalTciimqiGSSPRRUDNX8596-31-89 22:13:00 Test Item Value Reference Range Interpretation Comments INR (test code = INR) 1.32 0.85-1.17 [facility] [id number] 09:15:00 Test Item Value Reference Range Interpretation Comments Antibody Scrn (test Negative (06/24/16 4:15 code = Antibody Scrn) AM) [facility] EPRCDQL5472-19-67 09:15:00 Test Item Value Reference Range Interpretation Comments ABO/Rh (test code = ABO/Rh) A POS [facility] [id number] 09:00:00 Test Item Value Reference Range Interpretation Comments Platelet product (test Product available code = Platelet (06/24/16 4:00 AM) product) [facility] [id number] 09:00:00 Test Item Value Reference Range Interpretation Comments FFP product (test code Product available = FFP product) (06/24/16 4:00 AM) [facility] [id number] 09:00:00 Test Item Value Reference Range Interpretation Comments Cryo product (test Product available code = Cryo product) (06/24/16 4:00 AM) [facility] [id number] 09:00:00 Test Item Value Reference Range Interpretation Comments RBC product (test code Product available = RBC product) (06/24/16 4:00 AM) [facility] HospitalVssuvkxVKNJSXMOIQ8467-72-53 10:18:00 Test Item Value Reference Range Interpretation Comments INR (test code = INR) 1.05 0.85-1.17 [facility] HospitalFlgzdgaZVWEYMPNXN9897-44-91 10:18:00 Test Item Value Reference Range Interpretation Comments PTT (test code = PTT) 37.0 s 22.9-35.8 [facility] HospitalLzdfvtlVKGVZXYVIT4174-24-48 10:18:00 Test Item Value Reference Range Interpretation Comments PT (test code = PT) 13.9 s 12.0-14.7 [facility] [id number] 10:18:00 Test Item Value Reference Range Interpretation Comments ABO/Rh (test code = ABO/Rh) A POS [facility] BANK MIHGBFO5822-04-02 10:18:00 Test Item Value Reference Range Interpretation Comments Antibody Scrn (test Negative (06/20/16 5:18 code = Antibody Scrn) AM) [facility]qmwkwxJDZJNNIXWG1733-41-21 10:18:00 Test Item Value Reference Range Interpretation Comments Plt Morph (test code = Normal (06/20/16 5:18 Plt Morph) AM) [facility]HleowcbMJCXRKBEQW0354-87-02 10:18:00 Test Item Value Reference Range Interpretation Comments RBC Morph (test code = Normal (06/20/16 5:18 RBC Morph) AM) [facility] LQEUORXZVB7438-13-93 10:18:00 Test Item Value Reference Range Interpretation Comments HCV RNA Log10 (test code = HCV RNA 6.9 Log10) [facility] [id number] 10:18:00 Test Item Value Reference Range Interpretation Comments HCV RNA VirLoad (test code = HCV RNA 3377606 VirLoad) [facility] [id number] 10:00:00 Test Item Value Reference Range Interpretation Comments FFP product (test code Product available = FFP product) (06/20/16 5:00 AM) [facility] [id number] 10:00:00 Test Item Value Reference Range Interpretation Comments Cryo product (test Product available code = Cryo product) (06/20/16 5:00 AM) [facility] [id number] 10:00:00 Test Item Value Reference Range Interpretation Comments RBC product (test code Product available = RBC product) (06/20/16 5:00 AM) [facility] BANK [id number] 10:00:00 Test Item Value Reference Range Interpretation Comments Platelet product (test Product available code = Platelet (06/20/16 5:00 AM) product) [facility] - [id number] 10:33:00 Test Item Value Reference Range Interpretation Comments MRSA by PCR (test Negative (06/18/16 5:33 code = MRSA by PCR) AM) [facility] [id number] 10:33:00 Test Item Value Reference Range Interpretation Comments B/C Ratio (test code = B/C Ratio) 18 6-25 [facility]2017-03-25 10:33:00 Test Item Value Reference Range Interpretation Comments Globulin (test code = Globulin) 3.9 2.7-4.2 [facility]2017-03-25 10:33:00 Test Item Value Reference Range Interpretation Comments A/G Ratio (test code = A/G Ratio) 0.8 0.7-1.6 [facility]2017-03-25 10:33:00 Test Item Value Reference Range Interpretation Comments ALT (test code = ALT) 67 See_Comment [Auto mated message] The system which ge nerated this result transmit jigar reference range : <=65. The reference range was not used to interpr et this result as sonido l/abnormal. [facility]2017-03-25 10:33:00 Test Item Value Reference Range Interpretation Comments AST (test code = AST) 74 See_Comment [Auto mated message] The system which ge nerated this result transmit jigar reference range : <=37. The reference range was not used to interpr et this result as sonido l/abnormal. [facility]2017-03-25 10:33:00 Test Item Value Reference Range Interpretation Comments Total Protein (test code = Total 7.1 6.4-8.4 Protein) [facility]2017-03-25 10:33:00 Test Item Value Reference Range Interpretation Comments Albumin Lvl (test code = Albumin Lvl) 3.2 3.5-5.0 [facility]2017-03-25 10:33:00 Test Item Value Reference Range Interpretation Comments Alk Phos (test code = Alk Phos) 58 39-136 [facility]2017-03-25 10:33:00 Test Item Value Reference Range Interpretation Comments Bili Total (test code = Bili Total) 0.4 0.2-1.3 [facility] [id number] 10:33:00 Test Item Value Reference Range Interpretation Comments CHD Risk (test code = CHD Risk) 4.04 4.00-7.30 [id number] 10:33:00 Test Item Value Reference Range Interpretation Comments VLDL (test code = VLDL) 16 [facility] [id number] 10:33:00 Test Item Value Reference Range Interpretation Comments LDL (Calculated) (test code = LDL 121 (Calculated)) [id number] 10:33:00 Test Item Value Reference Range Interpretation Comments HDL (test code = HDL) 45 [id number] 10:33:00 Test Item Value Reference Range Interpretation Comments Trig (test code = Trig) 82 [id number] 10:33:00 Test Item Value Reference Range Interpretation Comments Chol (test code = Chol) 182 [facility] [id number] 10:33:00 Test Item Value Reference Range Interpretation Comments Hgb A1C (test code = Hgb A1C) 6.4 [facility] AND [id number] 10:33:00 Test Item Value Reference Range Interpretation Comments UA Urobilinogen (test code = UA no gt 0.1-1.0 Urobilinogen) [facility] AND [id number] 10:33:00 Test Item Value Reference Range Interpretation Comments UA Sq Epi (test code = UA Sq Epi) None Seen [facility] AND [id number] 10:33:00 Test Item Value Reference Range Interpretation Comments UA RBC (test code = no gt See_Comment [Automa jigar message] The UA RBC) system which ge nerated this result transmit jigar reference range : <=2. The reference range was not used to interpr et this result as sonido l/abnormal. [facility] AND [id number] 10:33:00 Test Item Value Reference Range Interpretation Comments UA Bili (test code = Negative *NA*(06/18/16 UA Bili) 5:33 AM) [facility] AND [id number] 10:33:00 Test Item Value Reference Range Interpretation Comments UA Ketones (test code = UA Negative mg/dL Ketones) [facility] AND [id number] 10:33:00 Test Item Value Reference Range Interpretation Comments UA Glucose (test code = UA Negative mg/dL Glucose) [facility] AND [id number] 10:33:00 Test Item Value Reference Range Interpretation Comments UA WBC (test code = no gt See_Comment [Automa jigar message] The UA WBC) system which ge nerated this result transmit jigar reference range : <=5. The reference range was not used to interpr et this result as sonido l/abnormal. [facility] AND [id number] 10:33:00 Test Item Value Reference Range Interpretation Comments UA Leuk Est (test Negative (06/18/16 5:33 code = UA Leuk Est) AM) [facility] AND [id number] 10:33:00 Test Item Value Reference Range Interpretation Comments UA Nitrite (test code Negative (06/18/16 5:33 = UA Nitrite) AM) [facility] AND [id number] 10:33:00 Test Item Value Reference Range Interpretation Comments UA Blood (test code = Negative (06/18/16 5:33 UA Blood) AM) [facility] AND [id number] 10:33:00 Test Item Value Reference Range Interpretation Comments UA Protein (test code = UA Negative mg/dL Protein) [facility] AND [id number] 10:33:00 Test Item Value Reference Range Interpretation Comments UA Color (test code = Light Yellow UA Color) *NA*(06/18/16 5:33 AM) [facility] AND [id number] 10:33:00 Test Item Value Reference Range Interpretation Comments UA Turbidity (test code = Clear (06/18/16 5:33 UA Turbidity) AM) [facility] AND [id number] 10:33:00 Test Item Value Reference Range Interpretation Comments UA pH (test code = UA pH) 5.0 5.0-8.0 [facility] AND [id number] 10:33:00 Test Item Value Reference Range Interpretation Comments UA Spec Grav (test code = UA Spec Grav) 1.008 [facility] AND [id number] 04:28:00 Test Item Value Reference Range Interpretation Comments UA Turbidity (test code = Clear (06/17/16 11:28 UA Turbidity) PM) [facility] AND [id number] 04:28:00 Test Item Value Reference Range Interpretation Comments UA pH (test code = UA pH) 6.0 5.0-8.0 [facility] AND [id number] 04:28:00 Test Item Value Reference Range Interpretation Comments UA Color (test code = Light Yellow UA Color) *NA*(06/17/16 11:28 PM) [facility] AND [id number] 04:28:00 Test Item Value Reference Range Interpretation Comments UA Spec Grav (test code = UA Spec Grav) 1.010 [facility] AND [id number] 04:28:00 Test Item Value Reference Range Interpretation Comments UA WBC (test code = 1 See_Comment [Automa jigar message] The UA WBC) system which ge nerated this result transmit jigar reference range : <=5. The reference range was not used to interpr et this result as sonido l/abnormal. [facility] AND [id number] 04:28:00 Test Item Value Reference Range Interpretation Comments UA Bacteria (test code = UA Occasional /HPF Bacteria) [facility] AND [id number] 04:28:00 Test Item Value Reference Range Interpretation Comments UA Glucose (test code = UA Negative mg/dL Glucose) [facility] AND [id number] 04:28:00 Test Item Value Reference Range Interpretation Comments UA Protein (test code = UA Negative mg/dL Protein) [facility] AND [id number] 04:28:00 Test Item Value Reference Range Interpretation Comments UA Urobilinogen (test code = UA no gt 0.1-1.0 Urobilinogen) [facility] AND [id number] 04:28:00 Test Item Value Reference Range Interpretation Comments UA Sq Epi (test code = UA Sq Epi) None Seen [facility] AND [id number] 04:28:00 Test Item Value Reference Range Interpretation Comments UA Leuk Est (test Negative (06/17/16 11:28 code = UA Leuk Est) PM) [facility] AND [id number] 04:28:00 Test Item Value Reference Range Interpretation Comments UA Nitrite (test code Negative (06/17/16 11:28 = UA Nitrite) PM) [facility] AND [id number] 04:28:00 Test Item Value Reference Range Interpretation Comments UA Blood (test code = Negative (06/17/16 11:28 UA Blood) PM) [facility] AND [id number] 04:28:00 Test Item Value Reference Range Interpretation Comments UA Bili (test code = Negative *NA*(06/17/16 UA Bili) 11:28 PM) [facility] AND [id number] 04:28:00 Test Item Value Reference Range Interpretation Comments UA Ketones (test code = UA Negative mg/dL Ketones) [facility] [id number] 09:20:00 Test Item Value Reference Range Interpretation Comments CHD Risk (test code = CHD Risk) 4.26 4.00-7.30 [facility] [id number] 09:20:00 Test Item Value Reference Range Interpretation Comments VLDL (test code = VLDL) 22 [facility] [id number] 09:20:00 Test Item Value Reference Range Interpretation Comments LDL (Calculated) (test code = LDL 118 (Calculated)) [facility] [id number] 09:20:00 Test Item Value Reference Range Interpretation Comments HDL (test code = HDL) 43 [facility] [id number] 09:20:00 Test Item Value Reference Range Interpretation Comments Chol (test code = Chol) 183 [facility] [id number] 09:20:00 Test Item Value Reference Range Interpretation Comments Trig (test code = Trig) 112 [facility] HospitalannCARDIAC [id number] 00:19:00 Test Item Value Reference Range Interpretation Comments Total CK (test code = Total CK) 384 12-191 [facility]annCARD[facility]AC [id number] 00:19:00 Test Item Value Reference Range Interpretation Comments Troponin-I (test code 7.44 See_Comment [Auto mated message] The = Troponin-I) system which g enerated this result transmit ijgar reference range : <=0.40. The reference r [place] was not used to interpr et this result as sonido l/abnormal. [facility]ann[facility]AC [id number] 00:19:00 Test Item Value Reference Range Interpretation Comments CK MB Index (test 4.4 See_Comment [Automate d message] The code = CK MB Index) system w [facility] generated this result transmit jigar reference range : <=2.5. The reference range was not used to interpr et this result as sonido l/abnormal. [facility] [id number] 00:19:00 Test Item Value Reference Range Interpretation Comments CK MB (test code = CK MB) 17.0 0.5-3.6 [facility] [id number] 19:58:00 Test Item Value Reference Range Interpretation Comments CK MB Index (test 4.8 See_Comment [Automate d message] The code = CK MB Index) system w [facility] generated this result transmit jigar reference range : <=2.5. The reference range was not used to interpr et this result as sonido l/abnormal. [facility] [id number] 19:58:00 Test Item Value Reference Range Interpretation Comments Total CK (test code = Total CK) 412 12-191 [facility] [id number] 19:58:00 Test Item Value Reference Range Interpretation Comments CK MB (test code = CK MB) 19.8 0.5-3.6 [facility]annCARHitFox GroupAC [id number] 19:56:00 Test Item Value Reference Range Interpretation Comments Troponin-I (test code 6.52 See_Comment [Auto mated message] The = Troponin-I) system which g enerated this result transmit jigar reference range : <=0.40. The reference r [place] was not used to interpr et this result as sonido l/abnormal. [employer] [id number] 19:56:00 Test Item Value Reference Range Interpretation Comments Globulin (test code = Globulin) 3.7 2.7-4.2 [facility] [employer] [id number] 19:56:00 Test Item Value Reference Range Interpretation Comments A/G Ratio (test code = A/G Ratio) 0.9 0.7-1.6 [employer] [id number] 19:56:00 Test Item Value Reference Range Interpretation Comments B/C Ratio (test code = B/C Ratio) 19 6-25 [facility] [employer] [id number] 19:56:00 Test Item Value Reference Range Interpretation Comments Bili Total (test code = Bili Total) 0.5 0.2-1.3 [employer] [id number] 19:56:00 Test Item Value Reference Range Interpretation Comments Albumin Lvl (test code = Albumin Lvl) 3.3 3.5-5.0 [employer] [id number] 19:56:00 Test Item Value Reference Range Interpretation Comments Total Protein (test code = Total 7.0 6.4-8.4 Protein) [facility] [employer] [id number] 19:56:00 Test Item Value Reference Range Interpretation Comments Alk Phos (test code = Alk Phos) 68 39-136 [facility] [employer] [id number] 19:56:00 Test Item Value Reference Range Interpretation Comments AST (test code = AST) 51 See_Comment [Auto mated message] The system which ge nerated this result transmit jigar reference range : <=37. The reference range was not used to interpr et this result as sonido l/abnormal. [facility] [employer] [id number] 19:56:00 Test Item Value Reference Range Interpretation Comments ALT (test code = ALT) 44 See_Comment [Auto mated message] The system which ge nerated this result transmit jigar reference range : <=65. The reference range was not used to interpr et this result as sonido l/abnormal. [facility] [id number] 19:56:00 Test Item Value Reference Range Interpretation Comments U Cannab Scr (test Negative *NA*(06/15/16 code = U Cannab Scr) 2:56 PM) [facility] [id number] 19:56:00 Test Item Value Reference Range Interpretation Comments U Phencyc Scr (test Negative *NA*(06/15/16 code = U Phencyc Scr) 2:56 PM) [facility] [id number] 19:56:00 Test Item Value Reference Range Interpretation Comments U Opiate Scr (test Negative *NA*(06/15/16 code = U Opiate Scr) 2:56 PM) [facility] [id number] 19:56:00 Test Item Value Reference Range Interpretation Comments U Cocaine Scr (test Negative *NA*(06/15/16 code = U Cocaine Scr) 2:56 PM) [facility] [id number] 19:56:00 Test Item Value Reference Range Interpretation Comments U Benzodia Scr (test Negative *NA*(06/15/16 code = U Benzodia Scr) 2:56 PM) [facility] [id number] 19:56:00 Test Item Value Reference Range Interpretation Comments U Amph Scr (test code Negative *NA*(06/15/16 = U Amph Scr) 2:56 PM) [facility] [id number] 19:56:00 Test Item Value Reference Range Interpretation Comments U Elsy Scr (test code Negative *NA*(06/15/16 = U Elsy Scr) 2:56 PM) [facility] [id number] 19:56:00 Test Item Value Reference Range Interpretation Comments UDS Note (test code = See Note (06/15/16 2:56 UDS Note) PM) [facility] [id number] 19:56:00 Test Item Value Reference Range Interpretation Comments Hep Bs Ag (test code Negative *NA*(06/15/16 = Hep Bs Ag) 2:56 PM) [facility] [id number] 19:56:00 Test Item Value Reference Range Interpretation Comments Hep B Core IgM (test Negative *NA*(06/15/16 code = Hep B Core 2:56 PM) IgM) [facility] [id number] 19:56:00 Test Item Value Reference Range Interpretation Comments Hep C Ab (test code = Positive *ABN*(06/15/16 Hep C Ab) 2:56 PM) [facility] [id number] 19:56:00 Test Item Value Reference Range Interpretation Comments Hep A IgM (test code Negative *NA*(06/15/16 = Hep A IgM) 2:56 PM) [facility] [id number] 19:56:00 Test Item Value Reference Range Interpretation Comments Hgb A1C (test code = Hgb A1C) 6.6 [facility] [id number] 19:56:00 Test Item Value Reference Range Interpretation Comments UA pH (test code = UA pH) 5.5 1 5.0-8.0 [facility] [id number] 19:56:00 Test Item Value Reference Range Interpretation Comments UA Spec Grav (test code = UA Spec 1.020 1 Grav) [facility] [id number] 19:56:00 Test Item Value Reference Range Interpretation Comments UA Protein (test code Negative (06/15/16 2:56 = UA Protein) PM) [facility] [id number] 19:56:00 Test Item Value Reference Range Interpretation Comments UA Turbidity (test code = Clear (06/15/16 2:56 UA Turbidity) PM) [facility] AND [id number] 19:56:00 Test Item Value Reference Range Interpretation Comments UA Leuk Est (test Negative (06/15/16 2:56 code = UA Leuk Est) PM) [facility] AND [id number] 19:56:00 Test Item Value Reference Range Interpretation Comments Micro? (test code = Not Indicated (06/15/16 Micro?) 2:56 PM) [facility] AND [id number] 19:56:00 Test Item Value Reference Range Interpretation Comments UA Glucose (test code Negative (06/15/16 2:56 = UA Glucose) PM) [facility] AND [id number] 19:56:00 Test Item Value Reference Range Interpretation Comments UA Bili (test code = Negative *NA*(06/15/16 UA Bili) 2:56 PM) [facility] AND [id number] 19:56:00 Test Item Value Reference Range Interpretation Comments UA Ketones (test code Negative *NA*(06/15/16 = UA Ketones) 2:56 PM) [facility] AND [id number] 19:56:00 Test Item Value Reference Range Interpretation Comments UA Blood (test code = Negative (06/15/16 2:56 UA Blood) PM) [facility] AND [id number] 19:56:00 Test Item Value Reference Range Interpretation Comments UA Nitrite (test code Negative (06/15/16 2:56 = UA Nitrite) PM) [facility] AND [id number] 19:56:00 Test Item Value Reference Range Interpretation Comments UA Urobilinogen (test code = UA 0.2 0.1-1.0 Urobilinogen) [facility] AND [id number] 19:56:00 Test Item Value Reference Range Interpretation Comments UA Color (test code = Yellow *NA*(06/15/16 UA Color) 2:56 PM) [facility]
[2021-04-21 02:34] LABS: Absolute Lymphocytes (CBC) 1.4 K/uL (0.7-4.9); Hematocrit 36.5 % (39.6-49.0); Lymphocytes % 26.8 % (15.3-44.8); MPV 7.5 fL (7.6-11.3); Protime INR 1.13; RBC Red Blood Cell Count 4.18 M/uL (4.33-5.43)
[2021-04-21] MEDS ORDERED: NA CHLORIDE 0.9% 1,000 ML ONE (02:36)
[2021-04-21 02:38] LABS: Potassium 4.2 mmol/L (3.5-5.1)
[2021-04-21] MEDS ORDERED: FOLIC ACID 5 MG/ML VIAL ONE (02:39)
--- NOTE | 2021-04-21 02:45 | RAD REPORT ---
EXAM DESCRIPTION: CT - Ct Stroke Brain Wo Cont - 04/21/2021 2:20 am CLINICAL HISTORY: WEAKNESS Headache, drowsiness, CVA symptomology COMPARISON: No comparisons TECHNIQUE: All CT scans are performed using dose optimization technique as appropriate and may inclu de automated exposure control or mA/KV adjustment according to patient size. FINDINGS: No intracranial hemorrhage, hydrocephalus or extra-axial fluid collection.Mild brain atrop hy.No areas of brain edema or evidence of midline shift. The paranasal sinuses and mastoids are clear. The calvarium is intact. IMPRESSION: No acute intracranial abnormality.
[2021-04-21 03:15] LABS: Blood Morphology Comment NOT SEEN (NOT SEEN); Platelet Estimate ADEQ
[2021-04-21] MEDS ORDERED: ASPIRIN EC 81 MG TAB PO ONE (03:43)
--- NOTE | 2021-04-21 04:18 | EDPHYS ---
Physician Documentation [facility] Name: Valerio Berg Age: 70 yrs Sex: Male : 1950 Arrival Date: 04/21/2021 Time: 01:58 Bed 14 Private MD: ED Physician Asa Cordoba HPI: 04/21 02:04 This 70 yrs old Black Male presents to ER via Unassigned with complaints of left arm rn weakness. 02:04 The patient presents to the emergency department with weakness of the left upper rn extremity. Onset: The symptoms/episode began/occurred 1 hour(s) ago. Context: occurred at home, occurred while the patient was at rest. Associated signs and symptoms: Pertinent positives: This patient does not have any pertinent positives. Pertinent negatives: altered mental status, chills, fever, headache, paresthesias, seizure, syncope, double vision, visual field changes, loss of vision. Severity of symptoms: At their worst the symptoms were moderate in the emergency department the symptoms are unchanged. Current symptoms: paralysis or paresis, of the left arm, that is moderate. The patient has not experienced similar symptoms in the past. The patient has not recently seen a physician. Patient reports was watching TV and approximately 50 minutes prior to arrival tried to lift left arm and could not. Denies any other focal neurological deficits. Denies neck injury or head injury. Takes Plavix and Eliquis. Has had a previous CVA. Denies chest pain or shortness of breath. Has not felt ill. Denies any new medication. Denies numbness or tingling. Historical: - Allergies: 02:31 Betadine; tk1 02:31 Povidone-Iodine; tk1 - Home Meds: 02:31 atorvastatin 40 mg Oral tab 1 tab once daily [Active]; Tradjenta 5 mg Oral tab 1 tab tk1 once daily [Active]; potassium chloride 20 mEq Oral TbER .5 tab once daily [Active]; levothyroxine 25 mcg tab 1 tab once daily [Active]; ropinirole 1 mg Oral tab 1 tab twice a day [Active]; Plavix 75 mg Oral tab 1 tab once daily [Active]; Singulair 10 mg Oral tab 1 tab once daily [Active]; Eliquis 2.5 mg oral tab 2 tabs 2 times per day [Active]; Entresto 24-26 mg oral tab 1 tab 2 times per day [Active]; carvedilol 6.25 mg oral tab 1 tab 2 times per day [Active]; Lasix 80 mg Oral tab 1 tab 2 times per day [Active]; valacyclovir 500 mg Oral tab 1 tab once daily [Active]; - PMHx: 02:31 Borderline Diabetes; COPD; Hypothyroidism; Myocardial infarction; tk1 - Immunization history:: Adult Immunizations up to date. - Social history:: Smoking status: Patient/guardian denies using tobacco, the patient reports quitting approximately 16 years ago, retired. - Family history:: not pertinent. - Hospitalizations: : No recent hospitalization is reported. ROS: 02:04 Constitutional: Negative for fever, chills, and weight loss, Eyes: Negative for injury, rn pain, redness, and discharge, Neck: Negative for injury, pain, and swelling, Cardiovascular: Negative for chest pain, palpitations, and edema, Respiratory: Negative for shortness of breath, cough, wheezing, and pleuritic chest pain, Abdomen/GI: Negative for abdominal pain, nausea, vomiting, diarrhea, and constipation, Back: Negative for injury and pain, MS/Extremity: Negative for injury and deformity, Skin: Negative for injury, rash, and discoloration, Neuro: Negative for headache, numbness, tingling, and seizure. 02:04 All other systems are negative. Exam: 02:04 Constitutional: This is a well developed, well nourished patient who is awake, alert, rn and in no acute distress. Head/Face: Normocephalic, atraumatic. Eyes: Periorbital areas with no swelling, redness, or edema. Cardiovascular: Regular rate and rhythm. No pulse deficits. Respiratory: No increased work of breathing, no retractions or nasal flaring. Abdomen/GI: Soft, non-tender Skin: Warm, dry MS/ Extremity: Pulses equal, no cyanosis. Neuro: Awake and alert, GCS 15, oriented to person, place, time, and situation. Cranial nerves II-XII grossly intact. Motor strength 5/5 RUE/RLE/LLE. LUE with drift and able to lift hand off of bed but not elbow. Weak left hand clerk of superior court strength compared to right. Sensory grossly intact. Vital Signs: 01:49 BP 89 / 59 RA Supine (auto/reg); Pulse 77 MON; Resp 26 S; Temp 98.3(O); Pulse Ox 98% on tk1 R/A; Pain 0/10; 01:50 BP 89 / 55 RA Sitting (auto/reg); Pulse 77 MON; Resp 26; Temp 98.3; Pulse Ox 98% on tk1 R/A; Weight 91.17 kg; Height 5 ft. 10 in. (177.80 cm); Pain 0/10; 02:30 BP 102 / 58 RA Sitting (auto/reg); Pulse 79 MON; Resp 25 S; Pulse Ox 98% on R/A; tk1 03:00 BP 99 / 65 RA Sitting (auto/reg); Pulse 75 MON; Resp 23 S; Pulse Ox 95% on R/A; Pain tk1 0/10; 04:30 BP 122 / 88 RA Supine (auto/reg); Pulse 83 MON; Resp 24 S; Pulse Ox 97% ; Pain 0/10; tk1 05:00 BP 111 / 68 RA Sitting (auto/reg); Pulse 80 MON; Resp 26 S; Pulse Ox 97% on R/A; Pain tk1 0/10; 01:50 Body Mass Index 28.84 (91.17 kg, 177.80 cm) tk1 NIH Stroke Scale Scores: 01:59 NIHSS Score: 2 rn 03:14 NIHSS Score: 2 tk1 03:14 NIHSS Score: 0 tk1 MDM: 01:59 Patient medically screened. rn 01:59 ED course: Patient states approximately 50 minutes ago was wide-awake and watching TV rn when attempting to lift left arm and could not lift the arm. Patient has a history of CVA. Patient presents within the TPA window but also takes Plavix and Eliquis for anticoagulation and states last Eliquis dose was last night as he takes it twice a day. NIH stroke scale of 2 with left upper extremity weakness that is more proximal than distal, but not TPA candidate via IV given taking Eliquis. Explained this to patient.. 02:26 ED course: Waiting on CT head from radiology. UNable to perform CTA due to creatinine rn 2. . 02:43 ED course: Still no radiology read of ct head on this stroke protocol. No obvious rn bleeding noted, not IV tpa candidate due to eliquis, initiating transfer to [facility] for possible intervention/catheter TPA as we do not have ability to do it here. . 02:47 ED course: Pt with hx of lymphoma and large left neck mass, last time evaluated for rn this, there was no cervical spinal involvement. Pt also states that tonight's weakness was acute, no progressively worsening weakness. . 02:53 ED course: Consulted with neurolgoy, Dr. Jacinto, at [facility], who states would not rn perform thrombectomy due to low NIH score of 2, recommends admission here at this hospital and MRI/MRA in morning. Also spoke with him regarding elevated creatinine and not getting CTA because of this, states ok since not going to intervene anyway, can wait for studies in AM. Canceled transfer and will admit here. . 03:12 ED course: Pt improving, has increased ROM and strength of LUE. Can now lift arm/hand rn off of bed, still has mild drift. Son here, confirms that speech is at baseline, and that strength is improving. Explained to patient and son that we tried to transfer for possible intervention but were told did not meet criteria and recommendation by Dr. Jacinto was to admit here with neurology consult and MRI in AM. . 04:16 Data reviewed: vital signs, nurses notes, lab test result(s), EKG, radiologic studies, rn CT scan, and as a result, I will admit patient. Counseling: I had a detailed discussion with the patient and/or guardian regarding: the historical points, exam findings, and any diagnostic results supporting the discharge/admit diagnosis, lab results, radiology results, the need for further work-up and treatment in the hospital. Response to treatment: the patient's symptoms have mildly improved after treatment, and as a result, I will admit patient. Admission orders: after a detailed discussion of the patient's condition and case, the admit orders are written by me. 04/21 01:59 Order name: Basic Metabolic Panel; Complete Time: 02:39 rn 04/21 01:59 Order name: CBC with Diff; Complete Time: 03:23 rn 04/21 01:59 Order name: Protime (+inr); Complete Time: 02:34 rn 04/21 01:59 Order name: Ptt, Activated; Complete Time: 02:34 rn 04/21 02:08 Order name: COVID-19 SARS RT PCR (Document "Date of Onset" if Symptomatic) bb 04/21 02:08 Order name: SARS-COV-2 RT PCR; Complete Time: 03:48 EDMS 04/21 01:59 Order name: CT Stroke Brain w/o Contrast; Complete Time: 03:14 rn 04/21 01:59 Order name: Stroke CXR 1 View; Complete Time: 19:16 rn 04/21 02:10 Order name: Glucose, Ancillary Testing; Complete Time: 02:23 EDMS 04/21 02:36 Order name: Manual Differential; Complete Time: 03:23 EDMS 04/21 03:01 Order name: CREATININE WHOLE BLOOD; Complete Time: 03:14 EDMS 04/21 05:26 Order name: Glucose, Ancillary Testing; Complete Time: 19:16 EDNV 04/21 08:16 Order name: Liver (Hepatic) Function; Complete Time: 19:16 EDMS 04/21 08:16 Order name: Lipid Profile; Complete Time: 19:16 EDMS 04/21 01:59 Order name: EKG; Complete Time: 02:00 rn 04/21 01:59 Order name: Accucheck; Complete Time: 02:34 rn 04/21 01:59 Order name: Cardiac monitoring; Complete Time: 02:34 rn 04/21 01:59 Order name: EKG - Nurse/Tech; Complete Time: 02:33 rn 04/21 01:59 Order name: IV Saline Lock; Complete Time: 02:34 rn 04/21 01:59 Order name: Labs collected and sent; Complete Time: 02:34 rn 04/21 01:59 Order name: NPO; Complete Time: 02:34 rn 04/21 01:59 Order name: O2 Per Protocol; Complete Time: 02:35 rn 04/21 08:16 Order name: US; Complete Time: 19:16 EDNV 04/21 21:07 Order name: MRI EDNV 04/21 01:59 Order name: O2 Sat Monitoring; Complete Time: 02:34 rn 04/21 01:59 Order name: Stroke Swallow Screen; Complete Time: 03:40 rn Administered Medications: 02:35 CANCELLED (Duplicate Order): NS 0.9% 1000 ml IV at 1000 ml once rn 02:40 Drug: foLIC Acid 1 mg Route: IVPB; Site: left antecubital; ll3 05:30 Follow up: IV Intake: 50ml tk1 02:40 Drug: NS 0.9% 500 ml Route: IV; Rate: bolus; Site: left antecubital; ll3 05:30 Follow up: IV Intake: 500ml tk1 03:40 Drug: Aspirin Chewable Tablet 324 mg Route: PO; tk1 Disposition Summary: 04/21/21 04:17 Hospitalization Ordered Hospitalization Status: Inpatient Admission rn Provider: Chapo Veliz rn Condition: Stable rn Problem: new rn Symptoms: have improved rn Bed/Room Type: Standard rn Location: Telemetry/MedSurg (Inpatient)(04/21/21 19:41) eb1 Room Assignment: 207(04/21/21 19:41) eb1 Diagnosis - Cerebral infarction, unspecified rn - Weakness rn Forms: - Medication Reconciliation Form rn - SBAR form rn NIH Stroke Scale - NIH Stroke Score Date: 04/21/2021 Time: 01:59 Total Score = 2 1a. Level of Consciousness (LOC) - 0(Alert) 1b. Level of Consciousness (LOC) (Month \\T\\ Age) - 0(Both) 1c. LOC Commands (Open \\T\\ Closes Eyes/Avionics System Engineer) - 0(Both) 2. Best Gaze (Lateral Gaze Paresis) - 0(Normal) 3. Visual Field Loss - 0(No visual loss) 4. Facial Palsy - 0(Normal) 5a. Left Arm: Motor (10-second hold) - 2(Drift, some effort against gravity) 5b. Right Arm: Motor (10-second hold) - 0(No drift) 6a. Left Leg: Motor (5-second hold - always test supine) - 0(No drift) 6b. Right Leg: Motor (5-second hold - always test supine) - 0(No drift) 7. Limb Ataxia (finger/nose \\T\\ heel/chacon - test with eyes open) - 0(Absent) 8. Sensory Loss (pinprick arms/legs/face) - 0(Normal) 9. Best Language: Aphasia (description/naming/reading) - 0(No aphasia) 10. Dysarthria (speech clarity - read or repeat words) - 0(Normal) 11. Extinction and Inattention (visual/tactile/auditory/spatial/personal) - 0(No abnormality) Initials: angelita NIH Stroke Scale - NIH Stroke Score Date: 04/21/2021 Time: 03:14 Total Score = 2 1a. Level of Consciousness (LOC) - 0(Alert) 1b. Level of Consciousness (LOC) (Month \\T\\ Age) - 0(Both) 1c. LOC Commands (Open \\T\\ Closes Eyes/Avionics System Engineer) - 0(Both) 2. Best Gaze (Lateral Gaze Paresis) - 0(Normal) 3. Visual Field Loss - 0(No visual loss) 4. Facial Palsy - 0(Normal) 5a. Left Arm: Motor (10-second hold) - 2(Drift, some effort against gravity) 5b. Right Arm: Motor (10-second hold) - 0(No drift) 6a. Left Leg: Motor (5-second hold - always test supine) - 0(No drift) 6b. Right Leg: Motor (5-second hold - always test supine) - 0(No drift) 7. Limb Ataxia (finger/nose \\T\\ heel/chacon - test with eyes open) - 0(Absent) 8. Sensory Loss (pinprick arms/legs/face) - 0(Normal) 9. Best Language: Aphasia (description/naming/reading) - 0(No aphasia) 10. Dysarthria (speech clarity - read or repeat words) - 0(Normal) 11. Extinction and Inattention (visual/tactile/auditory/spatial/personal) - 0(No abnormality) Initials: tk1 NIH Stroke Scale - NIH Stroke Score Date: 04/21/2021 Time: 03:14 Total Score = 0 1a. Level of Consciousness (LOC) - 0(Alert) 1b. Level of Consciousness (LOC) (Month \\T\\ Age) - 0(Both) 1c. LOC Commands (Open \\T\\ Closes Eyes/Avionics System Engineer) - 0(Both) 2. Best Gaze (Lateral Gaze Paresis) - 0(Normal) 3. Visual Field Loss - 0(No visual loss) 4. Facial Palsy - 0(Normal) 5a. Left Arm: Motor (10-second hold) - 0(No drift) 5b. Right Arm: Motor (10-second hold) - 0(No drift) 6a. Left Leg: Motor (5-second hold - always test supine) - 0(No drift) 6b. Right Leg: Motor (5-second hold - always test supine) - 0(No drift) 7. Limb Ataxia (finger/nose \\T\\ heel/chacon - test with eyes open) - 0(Absent) 8. Sensory Loss (pinprick arms/legs/face) - 0(Normal) 9. Best Language: Aphasia (description/naming/reading) - 0(No aphasia) 10. Dysarthria (speech clarity - read or repeat words) - 0(Normal) 11. Extinction and Inattention (visual/tactile/auditory/spatial/personal) - 0(No abnormality) Initials: tk1 Signatures: Dispatcher [employer] EDMS Asa Cordoba MD MD rn Garcia, Cindy RN RN Piedad Sun RN RN eb1 German Cabrera RN RN ll3 Airam Kelley tk1 Corrections: (The following items were deleted from the chart) 02:21 02:00 Head Angio+CT.RAD.BRZ ordered. EDMS EDMS 02:35 02:34 NS 0.9% 1000 ml IV at 1000 ml once ordered. rn rn 02:43 02:35 Shoulder Left 2 View+RAD.RAD.BRZ ordered. EDMS EDMS 04:29 04:17 Telemetry/MedSurg (Inpatient) angelita cg 04:29 04:17 rn cg 19:41 04:29 [facility] ER HOLD cg eb1 19:41 04:29 ERHOLD- cg eb1
--- NOTE | 2021-04-21 04:18 | ER ---
Nurse's Notes [facility] Name: Valerio Berg Age: 70 yrs Sex: Male : 1950 Arrival Date: 04/21/2021 Time: 01:58 Bed 14 Private MD: Diagnosis: Cerebral infarction, unspecified;Weakness Presentation: 04/21 01:49 Chief complaint: Patient states: Patient states, I can't move my left arm. EMS states: tk1 EMS states, patient's son called EMS stating he thinks his father is having a stroke. Son also stated to EMS, patient has history of stroke, but patient denies. 01:50 Initial Sepsis Screen: Does the patient meet any 2 criteria? RR > 20 per min. Systolic tk1 BP < 90 mmHg. Yes Does the patient have a suspected source of infection? No. Patient's initial sepsis screen is negative. If YES to both, name of provider notified: Asa Cordoba MD. Risk Assessment: Do you want to hurt yourself or someone else? Patient reports no desire to harm self or others. Onset of symptoms was April 21, 2021 at 01:00. 01:50 Acuity: ADRIÁN 2 tk1 02:24 Coronavirus screen: Vaccine status: Patient reports receiving the 2nd dose of the covid tk1 vaccine. Client denies travel out of the [place] in the last 14 days. At this time, the client does not indicate any symptoms associated with coronavirus-19. The client reports previous COVID testing was negative. Coronavirus screen: Vaccine status: Patient reports receiving the 2nd dose of the covid vaccine. Date January 28, 2022 Patient reports receiving the 1st dose of the Covid vaccine. Date June 04, 2021 Client indicates they have traveled out of the [place] in the last 14 days. Ebola Screen: Patient negative for fever greater than or equal to 101.5 degrees Fahrenheit, and additional compatible Ebola Virus Disease symptoms Patient denies exposure to infectious person. Patient denies travel to an Ebola-affected area in the 21 days before illness onset. No symptoms or risks identified at this time. 02:24 Method Of Arrival: EMS: [facility] tk1 Triage Assessment: 02:31 General: Appears comfortable, well groomed, well developed, well nourished, Behavior is tk1 calm, cooperative. Pain: Denies pain. Historical: - Allergies: 02:31 Betadine; tk1 02:31 Povidone-Iodine; tk1 - Home Meds: 02:31 atorvastatin 40 mg Oral tab 1 tab once daily [Active]; Tradjenta 5 mg Oral tab 1 tab tk1 once daily [Active]; potassium chloride 20 mEq Oral TbER .5 tab once daily [Active]; levothyroxine 25 mcg tab 1 tab once daily [Active]; ropinirole 1 mg Oral tab 1 tab twice a day [Active]; Plavix 75 mg Oral tab 1 tab once daily [Active]; Singulair 10 mg Oral tab 1 tab once daily [Active]; Eliquis 2.5 mg oral tab 2 tabs 2 times per day [Active]; Entresto 24-26 mg oral tab 1 tab 2 times per day [Active]; carvedilol 6.25 mg oral tab 1 tab 2 times per day [Active]; Lasix 80 mg Oral tab 1 tab 2 times per day [Active]; valacyclovir 500 mg Oral tab 1 tab once daily [Active]; - PMHx: 02:31 Borderline Diabetes; COPD; Hypothyroidism; Myocardial infarction; tk1 - Immunization history:: Adult Immunizations up to date. - Social history:: Smoking status: Patient/guardian denies using tobacco, the patient reports quitting approximately 16 years ago, retired. - Family history:: not pertinent. - Hospitalizations: : No recent hospitalization is reported. Screenin:49 Abuse screen: Denies threats or abuse. Denies injuries from another. Nutritional tk1 screening: No deficits noted. Tuberculosis screening: No symptoms or risk factors identified. Fall Risk No fall in past 12 months (0 pts). Secondary diagnosis (15 points) IV access (20 points). Ambulatory Aid- None/Bed Rest/Nurse Assist (0 pts). Gait- Impaired (20 pts.). Mental Status- Oriented to own ability (0 pts). Total Carlos Fall Scale indicates High Risk Score (45 or more points). Fall prevention measures have been instituted. Side Rails Up X 2 Placed Close to Nursing Station Frequent Obs/Assessments Occuring Family Present and informed to notify staff if the need to leave the bedside As available patient and family educated on Fall Prevention Program and Strategies. Assessment: 01:54 Reassessment: Labs drawn and sent. tk1 01:59 Reassessment: Accucheck - 91. tk1 02:04 Reassessment: pt to CT via stretcher accompanied by RN. bb 02:47 Reassessment: See triage assessment. tk1 03:12 Reassessment: Patient stood at side of bed to void. tk1 05:15 Reassessment: No changes from previously documented assessment. tk1 Vital Signs: 01:49 BP 89 / 59 RA Supine (auto/reg); Pulse 77 MON; Resp 26 S; Temp 98.3(O); Pulse Ox 98% on tk1 R/A; Pain 0/10; 01:50 BP 89 / 55 RA Sitting (auto/reg); Pulse 77 MON; Resp 26; Temp 98.3; Pulse Ox 98% on tk1 R/A; Weight 91.17 kg; Height 5 ft. 10 in. (177.80 cm); Pain 0/10; 02:30 BP 102 / 58 RA Sitting (auto/reg); Pulse 79 MON; Resp 25 S; Pulse Ox 98% on R/A; tk1 03:00 BP 99 / 65 RA Sitting (auto/reg); Pulse 75 MON; Resp 23 S; Pulse Ox 95% on R/A; Pain tk1 0/10; 04:30 BP 122 / 88 RA Supine (auto/reg); Pulse 83 MON; Resp 24 S; Pulse Ox 97% ; Pain 0/10; tk1 05:00 BP 111 / 68 RA Sitting (auto/reg); Pulse 80 MON; Resp 26 S; Pulse Ox 97% on R/A; Pain tk1 0/10; 01:50 Body Mass Index 28.84 (91.17 kg, 177.80 cm) tk1 Vitals: 05:15 Cardiac Rhythm Assessment Regular Sinus rhythm W/unifocal PVC's. tk1 NIH Stroke Scale Scores: 01:59 NIHSS Score: 2 rn 03:14 NIHSS Score: 2 tk1 03:14 NIHSS Score: 0 tk1 ED Course: 01:49 Arm band placed on right wrist. 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 01:49 Bed in low position. Call light in reach. Side rails up X2. Adult w/ patient. tk1 01:49 No provider procedures requiring assistance completed. Maintain EMS IV. Dressing tk1 intact. Good blood return noted. Site clean \\T\\ dry. Gauge \\T\\ site: 20g to left AC. IV is patent, is intact, with fluids not infusing freely, without good blood return, Flushed left antecubital. 01:58 Patient arrived in ED. rn 01:59 Asa Cordoba MD is Attending Physician. rn 02:20 CT Stroke Brain w/o Contrast In Process Unspecified. EDMS 02:24 Airam Kelley is Primary Nurse. tk1 02:26 Stroke CXR 1 View In Process Unspecified. EDMS 02:31 Triage completed. tk1 02:40 EKG completed in triage. Results shown to MD. tk1 02:44 initiated a transfer with [facility] [place]. mw2 02:[address] Cordoba with Dr. Jacinto from [facility]. mw2 02:[address] Cordoba. mw2 03:40 COVID-19 SARS RT PCR (Document "Date of Onset" if Symptomatic) Sent. tk1 04:16 Chapo Veliz MD is Hospitalizing Provider. rn 19:05 Report given to Nehemiah Ott Administered Medications: 02:35 CANCELLED (Duplicate Order): NS 0.9% 1000 ml IV at 1000 ml once rn 02:40 Drug: foLIC Acid 1 mg Route: IVPB; Site: left antecubital; ll3 05:30 Follow up: IV Intake: 50ml tk1 02:40 Drug: NS 0.9% 500 ml Route: IV; Rate: bolus; Site: left antecubital; ll3 05:30 Follow up: IV Intake: 500ml tk1 03:40 Drug: Aspirin Chewable Tablet 324 mg Route: PO; tk1 Intake: 05:30 IV: 500ml; Total: 500ml. tk1 05:30 IV: 50ml; Total: 550ml. tk1 Outcome: 04:17 Decision to Hospitalize by Provider. rn 21:48 Patient left the ED. ll3 NIH Stroke Scale - NIH Stroke Score Date: 04/21/2021 Time: 01:59 Total Score = 2 1a. Level of Consciousness (LOC) - 0(Alert) 1b. Level of Consciousness (LOC) (Month \\T\\ Age) - 0(Both) 1c. LOC Commands (Open \\T\\ Closes Eyes/Yardmaster) - 0(Both) 2. Best Gaze (Lateral Gaze Paresis) - 0(Normal) 3. Visual Field Loss - 0(No visual loss) 4. Facial Palsy - 0(Normal) 5a. Left Arm: Motor (10-second hold) - 2(Drift, some effort against gravity) 5b. Right Arm: Motor (10-second hold) - 0(No drift) 6a. Left Leg: Motor (5-second hold - always test supine) - 0(No drift) 6b. Right Leg: Motor (5-second hold - always test supine) - 0(No drift) 7. Limb Ataxia (finger/nose \\T\\ heel/chacon - test with eyes open) - 0(Absent) 8. Sensory Loss (pinprick arms/legs/face) - 0(Normal) 9. Best Language: Aphasia (description/naming/reading) - 0(No aphasia) 10. Dysarthria (speech clarity - read or repeat words) - 0(Normal) 11. Extinction and Inattention (visual/tactile/auditory/spatial/personal) - 0(No abnormality) Initials: angelita NIH Stroke Scale - NIH Stroke Score Date: 04/21/2021 Time: 03:14 Total Score = 2 1a. Level of Consciousness (LOC) - 0(Alert) 1b. Level of Consciousness (LOC) (Month \\T\\ Age) - 0(Both) 1c. LOC Commands (Open \\T\\ Closes Eyes/Yardmaster) - 0(Both) 2. Best Gaze (Lateral Gaze Paresis) - 0(Normal) 3. Visual Field Loss - 0(No visual loss) 4. Facial Palsy - 0(Normal) 5a. Left Arm: Motor (10-second hold) - 2(Drift, some effort against gravity) 5b. Right Arm: Motor (10-second hold) - 0(No drift) 6a. Left Leg: Motor (5-second hold - always test supine) - 0(No drift) 6b. Right Leg: Motor (5-second hold - always test supine) - 0(No drift) 7. Limb Ataxia (finger/nose \\T\\ heel/chacon - test with eyes open) - 0(Absent) 8. Sensory Loss (pinprick arms/legs/face) - 0(Normal) 9. Best Language: Aphasia (description/naming/reading) - 0(No aphasia) 10. Dysarthria (speech clarity - read or repeat words) - 0(Normal) 11. Extinction and Inattention (visual/tactile/auditory/spatial/personal) - 0(No abnormality) Initials: tk1 NIH Stroke Scale - NIH Stroke Score Date: 04/21/2021 Time: 03:14 Total Score = 0 1a. Level of Consciousness (LOC) - 0(Alert) 1b. Level of Consciousness (LOC) (Month \\T\\ Age) - 0(Both) 1c. LOC Commands (Open \\T\\ Closes Eyes/Yardmaster) - 0(Both) 2. Best Gaze (Lateral Gaze Paresis) - 0(Normal) 3. Visual Field Loss - 0(No visual loss) 4. Facial Palsy - 0(Normal) 5a. Left Arm: Motor (10-second hold) - 0(No drift) 5b. Right Arm: Motor (10-second hold) - 0(No drift) 6a. Left Leg: Motor (5-second hold - always test supine) - 0(No drift) 6b. Right Leg: Motor (5-second hold - always test supine) - 0(No drift) 7. Limb Ataxia (finger/nose \\T\\ heel/chacon - test with eyes open) - 0(Absent) 8. Sensory Loss (pinprick arms/legs/face) - 0(Normal) 9. Best Language: Aphasia (description/naming/reading) - 0(No aphasia) 10. Dysarthria (speech clarity - read or repeat words) - 0(Normal) 11. Extinction and Inattention (visual/tactile/auditory/spatial/personal) - 0(No abnormality) Initials: tk1 Signatures: Dispatcher [employer] EDZuleima Roy RN RN Asa Rice MD MD rn [place], MyKena mw2 German Cabrera RN RN ll3 Airam Kelley tk1 Diane Galarza, RN RN cb5 Corrections: (The following items were deleted from the chart) 02:48 02:24 Chief complaint: Patient states: Patient states, I can't move my left tk1 arm. EMS states: EMS states, patient's son called EMS stating he thinks his father is having a stroke. Son also stated to EMS, patient has history of stroke, but patient denies. tk1 02:51 02:31 BP 89 / 59 Supine Auto R Arm Regular; Pulse 77bpm; MonitorResp 26bpm; tk1 Spontaneous; Pulse Ox 98% RA; Temp 98.3F Oral; Pain 0/10; tk1 03:15 01:49 NIHSS Score: 3 tk1 tk1 03:15 03:12 NIHSS Score: 2 tk1 tk1
[2021-04-21] MEDS ORDERED: D5 0.9 NS 1,000 ML IV ONE (07:25)
[2021-04-21 08:15] LABS: Albumin 3.5 g/dL (3.4-5.0); Bilirubin Direct 0.2 mg/dL (0-0.2); Bilirubin Total 0.4 mg/dL (0.2-1.0); Protein, Total 7.6 g/dL (6.4-8.2)
--- NOTE | 2021-04-21 08:15 | RAD REPORT ---
EXAM DESCRIPTION: US - CP - 04/21/2021 7:11 am CLINICAL HISTORY: Left arm weakness, CVA COMPARISON: Soft Tissue Neck W/Contr dated 08/26/2020 TECHNIQUE: Real-time sonographic evaluation of bilateral carotid and vertebral systems was performed . Schneider scale and Doppler interrogation were performed with waveform tracing bilaterally. FINDINGS: Normal high resistance waveforms are noted in both external carotid arteries. The common c arotid arteries and internal carotid arteries show normal low resistance waveforms. Exam is technically limited. Patient had limited ability to cooperate with the examination. The nonca lcified plaquing changes are present in the mid to distal right common carotid artery, bulb and into the right external carotid artery. Soft plaquing changes were present in the left distal common carot id artery and left bulb. No dissection is identified. Visually no significant degree of stenosis is i dentifiable. The peak velocity values and ICA/ CCA ratios do not indicate a significant degree of ramakrishna nosis. Vertebral artery assessment was very limited. Vessels were difficult to visualize due to patient miko on and limited cooperation. Velocity values and ratios were recorded and are retained in the patient's imaging records. IMPRESSION: Bilateral soft, noncalcified plaquing changes in the bilateral carotid vasculature. No hemodynamically significant stenoses are identifiable. Poor visualization of the vertebrals.
--- NOTE | 2021-04-21 08:28 | RAD REPORT ---
EXAM DESCRIPTION: RAD - Chest Single View - 04/21/2021 2:27 am CLINICAL HISTORY: weakness, shortness of breath COMPARISON: Portable chest 09/28/2020 TECHNIQUE: AP portable chest image was obtained 04/21/2021 2:27 am . FINDINGS: Film technique and body habitus limit the evaluation. No peripheral mass or consolidation is identifiable. Cardiomegaly is present, mild in degree and accentuated due to the shallow inspirati on and portable technique. CABG surgical changes are noted. Upper lobe vasculature within normal limi ts. No significant failure or volume overload identifiable. No measurable pleural effusion and no pne umothorax. No acute bony abnormality seen. No acute aortic findings suspected. IMPRESSION: No failure or volume overload identified. Cardiomegaly is present without additional fin dings for failure. No peripheral mass or consolidation.
[2021-04-21] MEDS: CLOPIDOGREL 75 MG TABLET PO SCH (09:00)
--- NOTE | 2021-04-21 13:03 | EKG ---
Test Date: 2021-04-21 Test Time: 02:28:22 Special Delivery Clerk: DEREK MEASUREMENT RESULTS: Intervals: Rate: 79 NC: 200 QRSD: 152 QT: 410 QTc: 470 [place]bury: P: 105 NC: 200 QRS: -32 T: -18 INTERPRETIVE STATEMENTS: Normal sinus rhythm Left axis deviation Right bundle branch block Inferior infarct, age undetermined Anterolateral infarct, age undetermined Abnormal ECG Compared to ECG 09/28/2020 19:38:32 Sinus tachycardia no longer present Ventricular premature complex(es) no longer present Short NC interval no longer present Myocardial infarct finding still present Electronically Signed On 04-21-21 13:02:44 CONTINUOUS TOWEL ROLLER by Janak Moscoso
--- NOTE | 2021-04-21 14:24 | ECHO ---
HEIGHT: 5 ft 10 in WEIGHT: 200 lb 0 oz DATE OF STUDY: 04/21/[address]: Asa Cordoba JR, MD 2-DIMENSIONAL: YES M.MODE: YES DOPPLER: YES COLOR FLOW: YES TDS: PORTABLE: DEFINITY: BUBBLE STUDY: DIAGNOSIS: CEREBRAL VASCULAR ACCIDENT CARDIAC HISTORY: CATHERIZATION: YES SURGERY: NO PROSTHETIC VALVE: NO PACEMAKER: NO MEASUREMENTS (cm) DIASTOLIC (NORMALS) SYSTOLIC (NORMALS) IVSd 1.0 (0.6-1.2) LA Diam 4.0 (1.9-4.0) LVEF 55% LVIDd 4.2 (3.5-5.7) LVIDs 3.0 (2.0-3.5) %FS 28% LVPWd 1.1 (0.6-1.2) Ao Diam 3.4 (2.0-3.7) 2 DIMENSIONAL ASSESSMENT: RIGHT ATRIUM: NORMAL LEFT ATRIUM: NORMAL RIGHT VENTRICLE: NORMAL LEFT VENTRICLE: NORMAL TRICUSPID VALVE: NORMAL MITRAL VALVE: NORMAL PULMONIC VALVE: NORMAL AORTIC VALVE: NORMAL PERICARDIAL EFFUSION: NONE AORTIC ROOT: NORMAL LEFT VENTRICULAR WALL MOTION: NORMAL DOPPLER/COLOR FLOW: MILD TRICUSPID REGURGITATION. COMMENTS: MILD TRICUSPID REGURGITATION. NORMAL LEFT VENTRICULAR SIZE AND FUNCTION. NO WALL MOTION ABNORMALITY. NO THROMUS. TECHNOLOGIST: JODEE JONES
[2021-04-21] MEDS: D5 0.9 NS 1,000 ML IV SCH ×2 (18:23→23:37)
--- NOTE | 2021-04-21 21:06 | RAD REPORT ---
EXAM DESCRIPTION: MRI - Brain Wo Cont - 04/21/2021 8:32 pm CLINICAL HISTORY: left arm weakness, CVA Headache, drowsiness, CVA symptomology COMPARISON: Ct Stroke Brain Wo Cont dated 04/21/2021 TECHNIQUE: Multi-sequence, multiplanar MR imaging of the brain was performed without contrast. FINDINGS: No intracranial hemorrhage, hydrocephalus or extra-axial fluid collections. No edema or sh ift of midline structures. 12 x 6 mm small heterogenous lesion is seen posterior left frontal lobe wh ich may represent a small cavernoma. Two small foci diffusion restriction seen in the posterior right frontal lobe region measuring 4-5 mm each, suspicious for microinfarcts. Midline structures are normally formed. Mastoid air cells and paranasal sinuses are clear. IMPRESSION: There are two small foci of acute microinfarcts suspected right posterior frontal lobe. 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
[2021-04-21 21:57] VITALS: BMI 29.2
[2021-04-21] MEDS: ALBUTEROL 2.5 MG/3 ML NEB SOL NEB SCH (23:30)
[2021-04-21] MEDS: APIXABAN 2.5 MG TABLET PO SCH (23:38)
[2021-04-21] MEDS: ATORVASTATIN 40 MG TAB PO SCH (23:38)
--- NOTE | 2021-04-22 01:24 | CON ---
Reason For Consultation: Consultation called because of possible stroke. History Of Present Illness: Mr. Berg is a 70-year-old, right-handed patient with history of dyslip idemia, hypertension, diabetes mellitus, myocardial infarction, reported stroke. The patient was at home eating sometime in the morning that is today on the 26 when he developed sudden onset left arm w eakness. Apparently, could not lift his arm. The patient's son also noticed difficulty, the patient himself. There is also some difficulty in expressing himself and had slurred speech. He came to [facility]. Arrived around 50 minutes after onset of symptoms. Symptom time was 1:58 in the morning. He arrived at [facility] at 1:58 and symptom onset was about 50 minutes prior to arrival. His NIH Stroke Scale was read as 2. He has been on Eliquis along with Plavix and is the refore not a candidate for tPA given that. His head CT scan showed no acute ischemic or hemorrhagic change. The patient was admitted for stroke workup. He denies any lower extremity symptoms in the l eg and it is on the left or on the right side. Past Medical History: As indicated. Allergies: BETADINE, IODINE. Medications: At home, atorvastatin 40 mg daily, Tradjenta 5 mg daily, potassium 10 mEq daily, levoth yroxine 25 mcg daily, ropinirole 1 mg daily, Plavix 75 mg daily, Singulair 10 mg daily, tw ice daily, Entresto / twice daily, carvedilol 6.25 mg daily, Lasix 80 mg twice daily, and valacyc lovir 500 mg daily. Family History: Noncontributory. Social History: The patient smoked but quit 16 years ago. No alcohol or IV drug use. Review of Systems: He denies any recent fevers, chills, nausea, vomiting, myalgias, arthralgias, headache, weight change . No psychiatric complaints. No gastrointestinal or genitourinary complaints. Physical Examination: Vital Signs: Blood pressure 118/88, pulse 76 up to 101, temperature 98.6, respiratory rate 16 to 18, oxygen saturation 98% on 2 L nasal cannula. Weight 200 pounds. Height 5 feet 10 inches. General: Mr. Berg is resting in the emergency room, eating lunch. He has been in no significant d istress. HEENT: Appears normocephalic, atraumatic. Sclerae anicteric. Oropharynx is pink and moist. Neck: Supple. Chest: Clear. Heart: Regular. Extremities: Show no edema or cyanosis. Neurological: He has slightly slurred speech and difficulty with labial, lingual and guttural sounds . Face appears symmetric. Otherwise, intact cranial nerves. Motor, he has 4/5 distally and proxima lly in the left upper extremity and the left lower extremity appears 5/5. Right upper and lower extr emity 5/5. Sensory exam, slight decrease to touch in the left upper compared to the right upper extr emity. Coordination intact in upper and lower extremities. Reflexes symmetric. Regarding gait, he will be ambulated with physical therapy, which was actually done. He did require minimum assistance to ambulate. He did have a chronic left footdrop and left upper extremity weakness. Please note on his strength exam distally, he has 4/5 in the left foot dorsiflexion. Laboratory Studies: His white blood cell count 5.2, hemoglobin 11.8, hematocrit 36.5, INR 1.13. Priscilla mistries essentially unremarkable except his creatinine elevated to 2.02. Liver function studies are normal. LDL cholesterol 51, HDL cholesterol 55, total cholesterol 117. COVID-19 test is negative. His head CT scan shows no acute ischemic or hemorrhagic change. Brain MRI is pending. Carotid autumn ry ultrasound shows no hemodynamically significant stenosis. Echocardiogram showed ejection fraction of 55%. Essentially unremarkable study. Assessment: Mr. Berg is a 70-year-old patient with likely a right hemispheric stroke producing lef t upper more than lower extremity weakness and some facial involvement with dysarthria, has chronic _ footdrop, left-sided weakness. Plan: 1.He will likely benefit from aggressive physical, occupational, and speech therapy. 2.Continue Eliquis and aspirin combination. He was not a candidate for tPA. 3.The patient requires continued aggressive management of his other risk factors, hypertension, diab etes. He has risk factors for stroke. 4.If the patient is a candidate, he may be admitted to the inpatient rehabilitation unit for aggress rere physical, occupational, and speech therapy. CIARA/ARMANDO Voice ID: [id number] Report ID: [id number]
[2021-04-22] MEDS: ALBUTEROL 2.5 MG/3 ML NEB SOL NEB SCH ×4 (02:00→20:20)
--- NOTE | 2021-04-22 04:06 | HP ---
Date of Admission: 04/21/2021 Chief Complaint: Slurred speech and weakness of left arm. History Of Present Illness: This is a 70-year-old very pleasant male patient who came into the emerg ency room with complaints of slurred speech and weakness of left upper extremity that started yesterd ay. The patient denies any headache. No fall. No injury. No tingling, numbness. Denies any weakn ess of lower extremities. He came into the emergency room, after he was evaluated he was admitted to the hospital. ER physician did try to transfer him to another hospital and he contacted [facility] neurologist and because the patient is on Eliquis, he was not a candidate for tPA and tra nsfer was declined and the patient was admitted to the hospital under my service. When I saw him thi s morning, his neurological symptoms were already improving as reported by ER physician. After he ca me into ER, his slurred speech improved, his weakness of left upper extremity improved, still slightl y weaker than normal, but overall better than before. Allergies: NO KNOWN ALLERGIES. Medications: Albuterol inhaler 2 puffs 4 times a day as needed for shortness of breath, Combivent in haler 2 puffs 4 times a day as needed, Eliquis 2.5 mg 2 times a day, atorvastatin 40 mg at bedtime, c arvedilol 6.25 mg 2 times a day, Plavix 75 mg daily, Lasix which is furosemide 80 mg 2 times a day, l evothyroxine 25 mcg daily, Tradjenta 5 mg daily in morning with breakfast, montelukast 10 mg daily, p otassium chloride 20 mEq takes half a tablet daily, Ropinirole 1 mg 2 times a day, Entresto 24/26 mg 2 times a day, valacyclovir 500 mg daily. 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 Respiratory: Chronic cough. All other systems reviewed and negative. 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 Hypothyroidism, type 2 diabetes mellitus, COPD, pulmonary hypertension, hyperlipidemia, coronary artery disease, hypertension, non-STEMI on 06/30/2020, paroxysmal atrial fibrillation, nonal coholic fatty liver disease, prior history of hepatitis C, treated by Dr. Fregoso in the past, chronic constipation, benign prostatic hypertrophy, osteoarthritis at multiple sites, lumbar spinal stenosis , hypokalemia, and chronic kidney disease stage IIIB. Past Surgical History: Teeth extraction, coronary artery bypass surgery, fracture of right radius ul na and surgery for that, hip surgery, knee surgery. Family History: Mother had Alzheimer disease, diabetes, tuberculosis. Brother had stroke. Social History: Prior history of smoking, not at present time. Use of alcohol, negative. He quit u sing alcohol in 2006. Physical Examination: Vital Signs: Last temperature before I saw him this morning 98, pulse 76, respiratory rate 26, blood pressure 105/55, oxygen saturation 97%, height 5 feet 10 inches, weight 200 pounds. General: Awake, alert, oriented, not in distress. HEENT: Head atraumatic, normocephalic. Conjunctivae nonerythematous. Sclerae white. Mouth, no thr ush or edema noted. Ears/Nose, no mass, lesion, discharge noted. Neck: Supple. No JVD, lymph nodes, bruit, thyromegaly noted. Lungs: Bilateral good equal air entry. Clear to auscultation. No rhonchi. No rales. Heart: Normal heart sounds, no murmur or gallop. Abdomen: Soft, bowel sounds normal. No guarding, rigidity, tenderness, mass, hepatosplenomegaly, dis tention, or bruit noted. Extremities: No leg edema. No calf tenderness. Skin: No rash, ulcer, cellulitis. Lymphatics: No lymph node enlargement in neck, supraclavicular, infraclavicular region. Neuro: Unremarkable. Chest: Unremarkable. External Genitalia: Deferred. Rectal: Deferred. 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 Laboratory Data: White count 5.2, hemoglobin 11.8, platelets 167. Sodium 143, potassium 4.2, chlori de 106, bicarb 29, BUN 35, creatinine 2.07. Glucose 105. Liver function tests unremarkable. LDL 51 , triglyceride 53, total cholesterol 117, HDL 55. COVID-19 test negative. The patient had CT scan o f the brain done today in the ER, which was negative for any acute intracranial changes. Chest x-ray , no acute cardiopulmonary changes. Presence of cardiomegaly noted. Impression: 1.Stroke. 2.Chronic systolic congestive heart failure. 3.Chronic kidney disease, stage IIIB. 4.Chronic obstructive pulmonary disease. 5.Type 2 diabetes mellitus. 6.Hypertension. 7.Hyperlipidemia. 8.Coronary artery disease. 9.Paroxysmal atrial fibrillation. 10.Chronic anticoagulation therapy. 11.Benign prostatic hypertrophy. 12.Osteoarthritis. 13.Known alcoholic fatty liver disease. 14.Squamous cell carcinoma, metastatic to neck, unknown primary. Plan: Admit patient to hospital for further evaluation and management of this problem. The patient is appropriate for inpatient and is expected to spend 2 midnights in hospital. We will go ahead and consult neurologist. We will get echocardiogram with Doppler, carotid Doppler, MRI of brain without contrast. The patient will receive high-dose statin therapy, which is atorvastatin 40 mg daily at [facility] the way he takes normally at home. We will continue his anticoagulation and anti-platelet ther apy. Home medications will be continued per order and I will see him tomorrow for followup. Details and plan of treatment discussed with the patient. ANNA/ARMANDO Voice ID: [id number]
[2021-04-22] MEDS: D5 0.9 NS 1,000 ML IV SCH (07:43)
[2021-04-22] MEDS ORDERED: HOME MED 1 EA UNK (Linagliptin [Tradjenta] 5 MG Tablet) PO SCH (09:00)
[2021-04-22] MEDS: SACUBITRIL/VALSARTAN 24/26 MG TAB PO SCH ×2 (10:12→22:31)
[2021-04-22] MEDS: VALACYCLOVIR 500 MG TAB PO SCH (10:12)
[2021-04-22] MEDS: FUROSEMIDE 40 MG TABLET PO SCH ×2 (10:12→16:51)
[2021-04-22] MEDS: carvediloL 6.25 MG TAB PO SCH ×2 (10:13→22:31)
[2021-04-22] MEDS: POTASSIUM CL SA 10 MEQ TAB PO SCH (10:13)
[2021-04-22] MEDS: CLOPIDOGREL 75 MG TABLET PO SCH (10:13)
[2021-04-22] MEDS: APIXABAN 2.5 MG TABLET PO SCH ×2 (10:13→22:31)
[2021-04-22] MEDS: ROPINIROLE HCL 1 MG TAB PO SCH ×2 (10:13→22:31)
[2021-04-22] MEDS: MONTELUKAST 10 MG TAB PO SCH (10:14)
--- NOTE | 2021-04-22 11:45 | RAD REPORT ---
EXAM DESCRIPTION: RAD - Barium Swallow Modified - 04/22/2021 11:38 am CLINICAL HISTORY: further evaluation of oral liquid intake COMPARISON: None. TECHNIQUE: The patient was given liquid, semi-solid and solid forms of barium. Lateral view fluorosc opic imaging was performed in conjunction with speech pathology service. FINDINGS: Cineloop acquisitions: 20 Fluoro time: 2:58 Laryngeal penetration cleared with thin. Pharyngeal residue vallecular trace to mild with thin;pyrifo rm trace to mild with thin and nectar. Minimal epiglottic deflection,wide esophageal sphincter openin g and osteophytes between c3-c4 and c4-c5. IMPRESSION: Modified barium swallow as summarized above and fully detailed on speech pathology repor t.
--- NOTE | 2021-04-22 21:14 | PN ---
Date of Progress Note: 04/22/2021 Subjective: The patient was seen this morning for followup, lying in bed not in distress. No new co mplaints or problems reported. Objective: Vital Signs: Reviewed. HEENT: Unremarkable. Lungs: Clear to auscultation. Heart: Sounds normal. Abdomen: Soft. Bowel sounds normal. No guarding, rigidity, tenderness, or distention. Extremities: Trace leg edema. Neuro exam: Left upper extremity weakness unchanged from yesterday. Impression: 1.Stroke. 2.Chronic systolic heart failure. 3.Chronic kidney disease. 4.Hypertension. 5.Hyperlipidemia. Plan: We will go ahead and continue current medication. Continue Eliquis, Plavix. Continue high-do se statin therapy. Physical therapy, occupational therapy to work with the patient and Neurology con sultation is appreciated and I have requested rehab consultation for the patient. Details of plan of treatment discussed with the patient. I have also discussed details with the hospitalist, Dr. Benedict, who will be providing coverage in my absence. MRI, carotid Doppler and echocardiogram results revie wed. ANNA/MODL Voice ID: [id number] Report ID: [id number]
[2021-04-22] MEDS: ATORVASTATIN 40 MG TAB PO SCH (22:31)
[2021-04-22] MEDS ORDERED: ALBUTEROL 2.5 MG/3 ML NEB SOL NEB SCH (22:45)
[2021-04-23] MEDS: MELATONIN 5 MG TABLET PO PRN (02:29)
[2021-04-23] MEDS: ALBUTEROL 2.5 MG/3 ML NEB SOL NEB SCH ×4 (02:40→19:50)
[2021-04-23] MEDS: carvediloL 6.25 MG TAB PO SCH ×2 (05:01→21:00)
[2021-04-23] MEDS: LEVOTHYROXINE SOD 0.025 MG TAB PO SCH (06:35)
[2021-04-23] MEDS: CLOPIDOGREL 75 MG TABLET PO SCH (08:49)
[2021-04-23] MEDS: POTASSIUM CL SA 10 MEQ TAB PO SCH (08:49)
[2021-04-23] MEDS: MONTELUKAST 10 MG TAB PO SCH (08:49)
[2021-04-23] MEDS: SACUBITRIL/VALSARTAN 24/26 MG TAB PO SCH (08:50)
[2021-04-23] MEDS: VALACYCLOVIR 500 MG TAB PO SCH (08:50)
[2021-04-23] MEDS: HOME MED 1 EA UNK (Linagliptin [Tradjenta] 5 MG Tablet) PO SCH (08:50)
[2021-04-23] MEDS: FUROSEMIDE 40 MG TABLET PO SCH (08:50)
[2021-04-23] MEDS: ROPINIROLE HCL 1 MG TAB PO SCH ×2 (08:50→21:49)
[2021-04-23] MEDS: APIXABAN 2.5 MG TABLET PO SCH ×2 (08:50→21:49)
[2021-04-23 11:18] LABS: Absolute Lymphocytes (CBC) 1.2 K/uL (0.7-4.9); Hematocrit 35.6 % (39.6-49.0); Lymphocytes % 23.8 % (15.3-44.8); MPV 7.1 fL (7.6-11.3); RBC Red Blood Cell Count 4.05 M/uL (4.33-5.43)
[2021-04-23] MEDS ORDERED: VANCOMYCIN 1 GM in NA CHLORIDE 0.9% 250 ML IVPB SCH (11:32)
[2021-04-23 11:53] LABS: Folic Acid, (Folate) 11.7 ng/mL (3.1-17.5); Magnesium 2.6 mg/dL (1.8-2.4); Potassium 4.3 mmol/L (3.5-5.1)
[2021-04-23] MEDS ORDERED: VANCOMYCIN 2 GM in NA CHLORIDE 0.9% 500 ML IV SCH (12:00)
[2021-04-23 12:13] LABS: Blood Morphology Comment NOT SEEN (NOT SEEN); Platelet Estimate ADEQ
[2021-04-23] MEDS: MUPIROCIN 2% OINT 22GM TUBE TOP SCH ×2 (12:41→21:51)
[2021-04-23] MEDS: VANCOMYCIN 1.75 GM in NA CHLORIDE 0.9% 500 ML IVPB SCH (12:42)
[2021-04-23] MEDS: ACETAMINOPHEN 325 MG TABLET PO PRN (17:14)
[2021-04-23] MEDS: CLINDAMYCIN INJ 600 MG in NA CHLORIDE 0.9% 50 ML IV SCH (17:14)
[2021-04-23] MEDS: ATORVASTATIN 40 MG TAB PO SCH (21:49)
[2021-04-24] MEDS: CLINDAMYCIN INJ 600 MG in NA CHLORIDE 0.9% 50 ML IV SCH ×3 (00:37→18:42)
[2021-04-24] MEDS: MELATONIN 5 MG TABLET PO PRN (00:37)
[2021-04-24] MEDS: ALBUTEROL 2.5 MG/3 ML NEB SOL NEB SCH ×4 (02:49→19:40)
[2021-04-24] MEDS ORDERED: NA CHLORIDE 0.9% 50 ML ONE (08:02)
[2021-04-24] MEDS ORDERED: CLINDAMYCIN IV 150 MG/ML (6 mL) VIAL ONE (08:26)
[2021-04-24] MEDS: CLOPIDOGREL 75 MG TABLET PO SCH (09:02)
[2021-04-24] MEDS: POTASSIUM CL SA 10 MEQ TAB PO SCH (09:02)
[2021-04-24] MEDS: MONTELUKAST 10 MG TAB PO SCH (09:03)
[2021-04-24] MEDS: ROPINIROLE HCL 1 MG TAB PO SCH ×2 (09:03→20:53)
[2021-04-24] MEDS: carvediloL 6.25 MG TAB PO SCH ×2 (09:03→20:53)
[2021-04-24] MEDS: APIXABAN 2.5 MG TABLET PO SCH ×2 (09:04→20:53)
[2021-04-24] MEDS: MUPIROCIN 2% OINT 22GM TUBE TOP SCH ×2 (09:05→20:54)
[2021-04-24] MEDS: LEVOTHYROXINE SOD 0.025 MG TAB PO SCH (09:05)
[2021-04-24] MEDS: VALACYCLOVIR 500 MG TAB PO SCH (09:10)
[2021-04-24] MEDS: HOME MED 1 EA UNK (Linagliptin [Tradjenta] 5 MG Tablet) PO SCH (09:11)
[2021-04-24] MEDS: ATORVASTATIN 40 MG TAB PO SCH (20:53)
--- NOTE | 2021-04-24 21:18 | CON ---
Date of Consultation: 04/23/2021 Reason For Consultation: Evaluation of heart failure medications and systolic heart failure. History Of Present Illness: This is a 70-year-old male who was admitted to the hospital with acute s troke and has been evaluated by Neurology. However, his blood pressure has been running on the low s niru, patient does not have any symptoms of dizziness or syncope. He had nonischemic systolic dysfunc tion that responded very well to Entresto and beta-bart and I was asked to evaluate the heart fail ure medications due to borderline low blood pressure. Past Medical History: Significant for systolic congestive heart failure, hypothyroidism, diabetes, s quamous cell carcinoma of unknown origin, status post chemotherapy, hypertension, hyperlipidemia, cor onary artery disease, paroxysmal atrial fibrillation. Medications: Refer reconciliation sheet for detailed list. Allergies: IODINE. Family History: No mature coronary artery disease or cancer. Social History: He does not smoke or drink. Does not use any drugs. Review of Systems: All systems reviewed and they were negative except for mentioned in the HPI. Physical Examination: Vital Signs: Temperature was 97.8, breathing at 73, blood pressure is 101/49, saturating 97% on room air. General: Pleasant, middle-aged male, in no apparent distress. Head and Neck: Pupils are equal, reactive to light. Intact eye movements. No JVD. No cervical lym phadenopathy. Neck: Supple. Thyroid is not enlarged. Lungs: Clear to auscultation bilaterally. No rhonchi, rales or crackles. No accessory muscle use. Heart: Regular rate and rhythm. No extra sounds. Abdomen: Soft, nontender. Bowel sounds positive. No organomegaly. No masses or hernia. No rigidi ty or rebound. Extremities: There is no clubbing or cyanosis. Intact pulses. Skin: No rash. Neurologic: Alert, awake, oriented x3, with focal deficits due to the acute stroke. Lymph Nodes: No cervical lymphadenopathy. Investigations: Hemoglobin is 11.3, creatinine is 1.77. Assessment And Recommendations: Systolic congestive heart failure. He is known to have a low ejecti on fraction. Repeat echo now showed a normalization of his heart function. I definitely recommend t o continue the guidelines directed medical therapy for heart failure that he was on and definitely we can cut back on the Lasix from 80 mg twice a day to 40 mg twice a day and gradually taper it off if possible, but I will continue the beta bart and Entresto at the home dose if blood pressure allows . SR/MODL Voice ID: [id number] Report ID: [id number]
[2021-04-24] MEDS: ACETAMINOPHEN 325 MG TABLET PO PRN (21:23)
[2021-04-25] MEDS: CLINDAMYCIN INJ 600 MG in NA CHLORIDE 0.9% 50 ML IV SCH ×2 (00:30→10:28)
[2021-04-25] MEDS ORDERED: TRAMADOL HCL 50 MG TAB PO ONE (00:30)
[2021-04-25] MEDS: VANCOMYCIN 1.75 GM in NA CHLORIDE 0.9% 500 ML IVPB SCH (00:31)
--- NOTE | 2021-04-25 01:07 | P.PN ---
Subjective Date of Service: 04/23/21 Chart reviewed; Awaiting placement; boil underneath right breast s/p CVA; contnue with current treatment Review of Systems 10-point ROS is otherwise unremarkable Physical Examination - Vital Signs Temperature: 97.8 F Blood Pressure: 133/72 Pulse: 76 Respirations: 16 Pulse Ox (%): 99 - Physical Exam General: Alert, In no apparent distress, Oriented x3 HEENT: Atraumatic, PERRLA, EOMI Neck: Supple, JVD not distended Respiratory: Clear to auscultation bilaterally, Normal air movement Cardiovascular: Regular rate/rhythm, Normal S1 S2 Gastrointestinal: Normal bowel sounds, Soft and benign, Non-distended, No tenderness Musculoskeletal: No tenderness Integumentary: Skin lesion, Tenderness/swelling, Erythema, Other (skin underneath right breast) Neurological: Sensation intact, Cranial nerves 3-12 intact, Abnormal speech, Abnormal strength - Studies Medications List Reviewed: Yes Assessment & Plan - Problems (Diagnosis) (1) Acute CVA (cerebrovascular accident) Current Visit: Yes Status: Acute (2) CKD (chronic kidney disease) Current Visit: No Status: Acute (3) COPD (chronic obstructive pulmonary disease) Current Visit: No Status: Acute (4) Constipation, chronic Current Visit: No Status: Acute (5) Diabetes Current Visit: No Status: Acute (6) HTN (hypertension) Current Visit: No Status: Acute (7) Hyperlipidemia Current Visit: No Status: Acute (8) Hypothyroidism Current Visit: No Status: Acute (9) Osteoarthritis Current Visit: No Status: Acute - Plan 1. MRI of the brain w/ acute CVA; 2. Echocardiogram and carotid Doppler reviewed; EF WNL; continue with cardiac meds 3. Anti-platelet therapy and statin therapy 4. Neurology consultation appreciated 5. Physical therapy/occupational therapy/speech therapy evaluation 6. Modified barium swallow study 7. abx for boil underneath right breast 8. DVT prophylaxis Discharge Plan: Other Plan to discharge in: Greater than 2 days - Advance Directives Does patient have a Living Will: Yes Does patient have a Durable POA for Healthcare: Yes - Code Status/Comfort Care Code Status Assessed: Yes Code Status: Full Code Critical Care: No Time Spent Managing PTS Care (In Minutes): 35
--- NOTE | 2021-04-25 01:08 | P.PN ---
Date of Service: 04/24/21 Subjective Doing better; boil decreased; strength improved Awaiting placement; s/p CVA; contnue with current treatment Review of Systems 10-point ROS is otherwise unremarkable Physical Examination - Vital Signs reviewed - Physical Exam General: Alert, In no apparent distress, Oriented x3 Respiratory: Clear to auscultation bilaterally, Normal air movement Cardiovascular: Regular rate/rhythm, Normal S1 S2 Gastrointestinal: Normal bowel sounds, Soft and benign, Non-distended, No tenderness Musculoskeletal: No tenderness Integumentary: Skin lesion, Tenderness/swelling, Erythema, Other (skin underneath right breast) Neurological: Sensation intact, Cranial nerves 3-12 intact, Abnormal speech, Abnormal strength Assessment & Plan - Problems (Diagnosis) (1) Acute CVA (cerebrovascular accident) Current Visit: Yes Status: Acute (2) CKD (chronic kidney disease) Current Visit: No Status: Acute (3) COPD (chronic obstructive pulmonary disease) Current Visit: No Status: Acute (4) Constipation, chronic Current Visit: No Status: Acute (5) Diabetes Current Visit: No Status: Acute (6) HTN (hypertension) Current Visit: No Status: Acute (7) Hyperlipidemia Current Visit: No Status: Acute (8) Hypothyroidism Current Visit: No Status: Acute (9) Osteoarthritis Current Visit: No Status: Acute - Plan Continue with POC as mentioned below: 1. MRI of the brain w/ acute CVA; 2. Echocardiogram and carotid Doppler reviewed; EF WNL; continue with cardiac meds 3. Anti-platelet therapy and statin therapy 4. Neurology consultation appreciated 5. Physical therapy/occupational therapy/speech therapy evaluation 6. Modified barium swallow study 7. abx for boil underneath right breast 8. DVT prophylaxis
[2021-04-25] MEDS: ALBUTEROL 2.5 MG/3 ML NEB SOL NEB SCH ×4 (02:42→19:33)
[2021-04-25] MEDS: LEVOTHYROXINE SOD 0.025 MG TAB PO SCH (05:34)
[2021-04-25 06:45] LABS: Absolute Lymphocytes (CBC) 0.9 K/uL (0.7-4.9); Hematocrit 33.3 % (39.6-49.0); Lymphocytes % 24.3 % (15.3-44.8); MPV 7.7 fL (7.6-11.3); RBC Red Blood Cell Count 3.82 M/uL (4.33-5.43)
[2021-04-25] MEDS: ACETAMINOPHEN 325 MG TABLET PO PRN ×2 (06:47→21:08)
[2021-04-25 06:56] LABS: Magnesium 2.6 mg/dL (1.8-2.4); Potassium 4.2 mmol/L (3.5-5.1)
[2021-04-25] MEDS: carvediloL 6.25 MG TAB PO SCH ×2 (09:00→21:08)
[2021-04-25] MEDS: ROPINIROLE HCL 1 MG TAB PO SCH ×2 (10:29→21:08)
[2021-04-25] MEDS: CLOPIDOGREL 75 MG TABLET PO SCH (10:30)
[2021-04-25] MEDS: MONTELUKAST 10 MG TAB PO SCH (10:30)
[2021-04-25] MEDS: VALACYCLOVIR 500 MG TAB PO SCH (10:30)
[2021-04-25] MEDS: POTASSIUM CL SA 10 MEQ TAB PO SCH (10:30)
[2021-04-25] MEDS: APIXABAN 2.5 MG TABLET PO SCH ×2 (10:30→21:08)
[2021-04-25] MEDS: HOME MED 1 EA UNK (Linagliptin [Tradjenta] 5 MG Tablet) PO SCH (10:31)
[2021-04-25] MEDS: MUPIROCIN 2% OINT 22GM TUBE TOP SCH ×2 (10:32→21:09)
[2021-04-25] MEDS ORDERED: FUROSEMIDE 40 MG TABLET PO SCH (17:00)
[2021-04-25] MEDS: SMZ./TMP. 800/160 MG TABLET PO SCH (21:07)
[2021-04-25] MEDS: ATORVASTATIN 40 MG TAB PO SCH (21:08)
[2021-04-25] MEDS: MINOCYCLINE HCL 50 MG CAP PO SCH (21:08)
[2021-04-25] MEDS: MELATONIN 5 MG TABLET PO PRN (21:09)
[2021-04-26] MEDS: ACETAMINOPHEN 325 MG TABLET PO PRN ×2 (00:38→05:45)
[2021-04-26] MEDS ORDERED: MORPHINE 2 MG/ML SYR IV ONE (01:20)
[2021-04-26] MEDS: ALBUTEROL 2.5 MG/3 ML NEB SOL NEB SCH ×3 (02:00→13:35)
--- NOTE | 2021-04-26 02:03 | P.PN ---
Date of Service: 04/25/21 Subjective Doing better; boil that is underneath the right breast has decreased; strength improved Awaiting placement; s/p CVA; contnue with current treatment Review of Systems 10-point ROS is otherwise unremarkable Physical Examination - Vital Signs reviewed - Physical Exam General: Alert, In no apparent distress, Oriented x3 Respiratory: Clear to auscultation bilaterally, Normal air movement Cardiovascular: Regular rate/rhythm, Normal S1 S2 Gastrointestinal: Normal bowel sounds, Soft and benign, Non-distended, No tenderness Musculoskeletal: No tenderness Integumentary: Skin lesion, Tenderness/swelling, Erythema, Other (skin underneath right breast) Neurological: Sensation intact, Cranial nerves 3-12 intact, Abnormal speech, Abnormal strength; strength in the left arm is diminished Assessment & Plan - Problems (Diagnosis) (1) Acute CVA (cerebrovascular accident) Current Visit: Yes Status: Acute (2) CKD (chronic kidney disease) Current Visit: No Status: Acute (3) COPD (chronic obstructive pulmonary disease) Current Visit: No Status: Acute (4) Constipation, chronic Current Visit: No Status: Acute (5) Diabetes Current Visit: No Status: Acute (6) HTN (hypertension) Current Visit: No Status: Acute (7) Hyperlipidemia Current Visit: No Status: Acute (8) Hypothyroidism Current Visit: No Status: Acute (9) Osteoarthritis Current Visit: No Status: Acute - Plan Continue with POC as mentioned below: 1. MRI of the brain w/ acute CVA; 2. Echocardiogram and carotid Doppler reviewed; EF WNL; continue with cardiac meds 3. Anti-platelet therapy and statin therapy 4. Neurology consultation appreciated 5. Physical therapy/occupational therapy/speech therapy evaluation 6. Modified barium swallow study 7. Continue Bactroban as well as oral abx for boil underneath right breast; switched over from IV antibiotics 8. DVT prophylaxis
[2021-04-26] MEDS: LEVOTHYROXINE SOD 0.025 MG TAB PO SCH (05:41)
[2021-04-26] MEDS: HOME MED 1 EA UNK (Linagliptin [Tradjenta] 5 MG Tablet) PO SCH (09:42)
[2021-04-26] MEDS: ROPINIROLE HCL 1 MG TAB PO SCH (09:43)
[2021-04-26] MEDS: APIXABAN 2.5 MG TABLET PO SCH (09:43)
[2021-04-26] MEDS: MONTELUKAST 10 MG TAB PO SCH (09:43)
[2021-04-26] MEDS: CLOPIDOGREL 75 MG TABLET PO SCH (09:43)
[2021-04-26] MEDS: POTASSIUM CL SA 10 MEQ TAB PO SCH (09:43)
[2021-04-26] MEDS: VALACYCLOVIR 500 MG TAB PO SCH (09:43)
[2021-04-26] MEDS: MINOCYCLINE HCL 50 MG CAP PO SCH (09:43)
[2021-04-26] MEDS: carvediloL 6.25 MG TAB PO SCH (09:43)
[2021-04-26] MEDS: SACUBITRIL/VALSARTAN 24/26 MG TAB PO SCH (09:43)
[2021-04-26] MEDS: MUPIROCIN 2% OINT 22GM TUBE TOP SCH (09:44)
[2021-04-26] MEDS: SMZ./TMP. 800/160 MG TABLET PO SCH (09:44)
[2021-04-26 10:47] VITALS: TEMP 97
[2021-04-26 13:01] VITALS: BP 105/58
[2021-04-26 14:15] VITALS: O2SAT 98
--- NOTE | 2021-04-27 05:57 | DS ---
Date of Discharge: 04/26/2021 Physical Examination: HEENT: Unremarkable. Lungs: Clear to auscultation. Heart: Sounds normal. Abdomen: Soft. Bowel sounds normal. No guarding, rigidity, tenderness, or distention. Extremities: Trace leg edema. Neurological: Left upper extremity power is 4/5. Otherwise, rest of the neurological exam was unrem arkable. Laboratory Data: On 04/21/2021, white count 5.2, hemoglobin 11.8, platelets 167. Yesterday, white c ount 3.9, hemoglobin 10.7, and a platelet count of 140. Last chemistry from yesterday, sodium 141, p otassium 4.2, chloride 111, bicarb 27, BUN 39, creatinine 1.73, and glucose 93. Upon admission, BUN 35, creatinine 2.07. Discharge Medications And Instructions: Continue all current medications. Disposition: The patient was transferred to inpatient rehab. Hospital Course: This is a 70-year-old very pleasant male patient, came into emergency room with com plaints of slurred speech and weakness of left arm. Please see dictated H and P for more information . After patient was evaluated in the emergency room, he was admitted to the hospital. The patient w as admitted to the hospital with stroke. He was seen in consultation by neurologist Dr. Hand. H is CAT scan of the head, which was done in emergency room, was negative for any acute intracranial ch anges, but MRI of the brain did show evidence of stroke. There was no hemorrhage. The patient was n ot a candidate for tPA as he is on Eliquis and Plavix. His anticoagulant and anti-platelet therapy w ere continued. He is already on high-dose statin therapy which was continued as well. Photographer'S Assistant apy, Occupational Therapy, Speech Therapy were consulted. The patient participated well with this [facility] and inpatient rehab was consulted, and today, once we got approval from insurance company, mian lopez was made to transfer him to inpatient rehab in stable condition where I will continue to follow up with him. His other multiple chronic medical problems remained stable. Final Diagnoses: 1.Stroke. 2.Chronic systolic heart failure. 3.Chronic kidney disease, stage IIIB. 4.Chronic obstructive pulmonary disease. 5.Type 2 diabetes mellitus. 6.Hypertension. 7.Hyperlipidemia. 8.Coronary artery disease. 9.Paroxysmal atrial fibrillation. 10.Chronic anticoagulation therapy. 11.Benign prostatic hypertrophy. 12.Osteoarthritis, multiple sites. 13.Non-alcoholic fatty liver disease. 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 ANNA/MODL Voice ID: [id number] Report ID: [id number]
== END 2021-04-26 14:12 | DRG 65 ==
LOC: ER 01:48 → ERHOLD 04:18 → 2ND 19:53
PROVIDERS: ADMIT Internal Medicine; ATTEND Internal Medicine
DX: I63.9 Cerebral infarction, unspecified (principal); I13.0 Hypertensive heart and chronic kidney disease with heart failure and stage 1 through stage 4 chronic kidney disease, or unspecified chronic kidney disease; I50.22 Chronic systolic (congestive) heart failure; C79.2 Secondary malignant neoplasm of skin; R47.81 Slurred speech; G83.24 Monoplegia of upper limb affecting left nondominant side; R29.702 NIHSS score 2; E11.22 Type 2 diabetes mellitus with diabetic chronic kidney disease; N18.32 Chronic kidney disease, stage 3b; J44.9 Chronic obstructive pulmonary disease, unspecified; E78.5 Hyperlipidemia, unspecified; I25.10 Atherosclerotic heart disease of native coronary artery without angina pectoris; I48.0 Paroxysmal atrial fibrillation; N40.0 Benign prostatic hyperplasia without lower urinary tract symptoms; M19.90 Unspecified osteoarthritis, unspecified site; K76.0 Fatty (change of) liver, not elsewhere classified; K59.09 Other constipation; L02.223 Furuncle of chest wall; Z79.01 Long term (current) use of anticoagulants; Z20.822 Contact with and (suspected) exposure to COVID-19
CPT/HCPCS: 36415; 70450; 70551; 71045; 74230; 80048; 80061; 80076; 80202; 82565; 82607; 82746; 82947; 83540; 83735; 83880; 85025; 85610; 85730; 92610; 92611; 93005; 93306; 93880; 94640; 96374; 97112; 97116; 97161; 97530; 99284; J2270; J3370; J7030; J7040; J7042; U0003

== ENCOUNTER 2021-04-23 14:31 | Inpatient (IN) | payer OTHER ==
--- NOTE | 2021-04-26 13:17 | R.PREADM ---
PRE-ADMISSION SCREENING FORM SCREENING DATE AND TIME 04/22/2021 14:45 (DECAL CUTTER) ANTICIPATED REHAB ADMISSION DATE 04/24/2021 REFERRING FACILITY [facility] REFERRAL DATE AND TIME 04/22/2021 08:45 (DECAL CUTTER) REFERRAL ROOM# 207 ACUTE ADMIT DATE 04/21/2021 Previous Rehabilitation(s): No. 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 Eddie Hand M.D. MR# [id number] NAME CHYNA RYAN ADDRESS [address] [facility] [address] [facility] [id number] DATE OF 1950 AGE 70 SSN# [id number] GENDER male MARITAL STATUS ADMIT FROM 02 - [facility] PRE-HOSPITAL LIVING SETTING 01 - Home (private home/apt. board/care, assisted living, residential, transitional living) HOME TYPE AND DETAILS Type of home: apartment # of levels in the residence: 1 # of steps within the residence: 0 # of steps to enter the residence: 0 PRE-HOSPITAL LIVING WITH Alone FAMILY SUPPORT No PRIMARY FAMILY CONTACT NAME SARAH WEBER PRIMARY FAMILY CONTACT PHONE PRIMARY FAMILY CONTACT RELATIONSHIP Son PHONE PRIMARY FAMILY CONTACT ON ADM.? no IS PRIMARY FAMILY CONTACT AUTH. REP.? no 1ST EMERGENCY CONTACT SARAH WEBER 1ST CONTACT PHONE 1ST CONTACT RELATIONSHIP Son PHONE 1ST CONTACT ON ADM. no IS 1ST CONTACT AUTH. REP.? no PHONE 2ND CONTACT ON ADM.? no PATIENT EMPLOYMENT STATUS Retired (for age) PATIENT EMPLOYER No Employer PAYOR INFORMATION: 1ST PAYOR NAME [employer] 1ST PAYOR PHONE [phone] 1ST PAYOR INJURY/ILLNESS DUE TO ACCIDENT? No ANOTHER LIBERTARIAN RESPONSIBLE? No PRIMARY REHAB/ACUTE DIAGNOSIS: STROKE ONSET DATE 04/21/2021 REHAB IMPAIRMENT CATEGORY ([place]): 01 Stroke (STR) MEETS 60% rule AFFECTED EXTREMITIES: LLE, and LUE PRIMARY DIAGNOSIS-RELATED SURGERIES: N/A INTERVENTIONS: - Diabetes Monitor blood glucose levels and administer medication as indicated by Physician Diet will be customized to manage diabetic needs. - HTN Blood pressure will be regularly assessed and medications administered as per physician liam olson. - Hypothyroid Administer Meds as per MD - Hyperlipidemia Administer medications as per MD - CAD Vitals will be regularly monitored and symptoms managed. Administer Medication as indicated by physician. - Atrial Fibrillation Administer medications as directed by physician - CVA/TIA Monitor progressions - L UE paraesthesias Education and monitoring of limb awareness and safety to prevent injury RISK FOR COMPLICATIONS: - Pneumonia pt will be instructed on importance of deep breathing regular OOB activity and exercise to reduce risk - DVT Medications will be administered as per MD PTT and INR will be monitored to effectively mitigate risk for development of DVT or PE while here. - CVA pt has A-Fib and requires medical monitoring and medication management to reduce risk for CVA pt's blood pressures have been inconsistent and require monitoring and medication management as inidi cated by physician. - Falls Educated pt on fall prevention strategies to reduce/eliminate fall risk Patient will be evaluated for Fall Precautions and will be placed on Fall Precautions as indicated pe r protocol. - Skin Breakdown Nursing will assess skin daily using assessment tool and will place on Skin Breakdown Precautions as Indicated per protocol - Diabetic Complications Regular monitoring and management of blood glucose levels. pt will receive a specialized diet to help manage blood glucose levels - UTI Monitor for frequency, burning, discomfort, or incontinence Physician medical management as warranted - L UE Injury Education and monitoring of limb awareness and safety to prevent injury SUMMARY OF ACUTE HOSPITALIZATION: Pt. is a 70 yo Right-handed male. On 04/21/2021 Pt. presented to [facility] with sudden onset of left-side weakness. On 04/21/2021 he was admitted to [facility] with diagnosis STROKE. His impairment category is Stroke 01 - Left Body (Right Brain) (01.1). Pre-morbidly, Pt. was independent/mod-I in Locomotion, Safety Awareness, Social Cognition, and Balanc e; and he had good Transfers Control, Self-Care, Sphincter Control, Communication, and Endurance. Currently, he has deficits of Locomotion, Social Cognition, Safety Awareness, Balance, Sphincter Cont rol, Communication, Transfers Control, Self-Care, and Endurance. Pt. is now referred to [facility] for acute in-patient rehabilitation in order to maximize patient's functional independence in activities of daily living, strength, ROM, and mobi lity. Patient has realistic goal of being discharged at assistance level 7-Ind to reside at Home with Pt s elf. PAST MEDICAL HISTORY COPD DM HYPOTHYROIDISM FORMER SMOKER HYPERTENSION HYPERLIPIDEMIA CORONARY ARTERY DISEASE AFIB FATTY LIVER DISEASE PRIOR HISTORY OF HEP C CHRONIC CONSTIPATION PROSTATIC HYPERTROPHY OSTEOPOROSIS LUMBAR SPINAL STENOSIS HYPOKALEMIA PAST SURGICAL HISTORY: TEETH EXTRACTION CORONARY ARTERY BYPASS SURGERY FRACTURE OF RIGHT RADIUS ULNA HIP SURGERY KNEE SURGERY MEDICATION ALLERGIES: Iodine Povidone ENVIRONMENTAL ALLERGIES: None Known - Substance Allergies None Known - Other Allergies None Known CODE STATUS: Full code WEIGHT/HEIGHT/BMI: WEIGHT 204 lbs HEIGHT 5' 10" BMI 29.3 DIET: - Diet Type Regular - Diet - Solid Texture Mechanical Soft Bite Sized-6 (Chopped) - Diet - Liquid Texture Regular - Tube Feed N/A pt c/o Numbess in the L UE REVIEW OF SYSTEMS: - Gen Alert and awake Lying in bed No apparent distress Oriented to: person, time, and place - Vital Signs Temperature: 98.3 F SBP/DBP: 122/88 Pulse: 83 Resp: 24 Vital signs stable, afebrile - CVS RRR VITAL SIGNS Temperature: 98.3 F SBP/DBP: 122/88 Pulse: 83 Resp: 24 Vital signs stable, afebrile MEDICATIONS/TREATMENT: Other- See attached MAR (Medication Administration Record). CURRENT SPHINCTER CONTROL: Pre-hospital bladder status: unspecified # of bladder accidents in the last 7 days prior to screenin Pre-hospital bowel status: unspecified # of bowel accidents in the last 7 days prior to screenin Last Bowel Movement Date: 04/26/2021 CURRENT LOCOMOTION STATUS: distance walked 200 feet PUSHING ROLLING WALKER DETAILED CURRENT FUNCTIONAL STATUS: - Bladder accident frequency: 7-Ind - No accidents in the past 7 days - Bowel accident frequency: 7-Ind - No accidents in the past 7 days - Walking score based on distance walked: 0(N/A) score based on distance walked: 3(>=150ft) - Wheelchair score based on distance traveled: 0(N/A) QI SCORES: - Self-Care A. Eating 03-Partial/moderate assistance B. Oral hygiene 03-Partial/moderate assistance C. Toileting hygiene 03-Partial/moderate assistance E. Shower/bathe self 88-Not attempted due to medical condition or safety concerns F. Upper body dressing 03-Partial/moderate assistance G. Lower body dressing 03-Partial/moderate assistance H. Putting on/taking off footwear 88-Not attempted due to medical condition or safety concerns - Mobility A. Roll left and right 04-Supervision or touching assistance B. Sit to lying 04-Supervision or touching assistance C. Lying to sitting on side of bed 04-Supervision or touching assistance D. Sit to stand 04-Supervision or touching assistance E. Chair/[id number] transfer 04-Supervision or touching assistance F. Toilet transfer 03-Partial/moderate assistance G. Car transfer 88-Not attempted due to medical condition or safety concerns I. Walk 10 feet 04-Supervision or touching assistance J. Walk 50 feet with two turns 04-Supervision or touching assistance K. Walk 150 feet 04-Supervision or touching assistance L. Walking 10 feet on uneven surfaces 88-Not attempted due to medical condition or safety concerns M. 1 step (curb) 88-Not attempted due to medical condition or safety concerns N. 4 steps 88-Not attempted due to medical condition or safety concerns O. 12 steps 88-Not attempted due to medical condition or safety concerns P. Picking up object 88-Not attempted due to medical condition or safety concerns R. Wheel 50 feet with two turns 88-Not attempted due to medical condition or safety concerns S. Wheel 150 feet 88-Not attempted due to medical condition or safety concerns - Bladder and Bowel Bladder continence Bowel continence - Endurance Fair - Balance Fair - Safety Awareness Fair CURRENT FUNC. DEFICITS: Self-Care, Mobility, Endurance, Balance, and Safety Awareness CURRENT / PREVIOUS ASSISTIVE DEVICES: Rolling Walker HISTORY OF FALLS. HAS THE PATIENT HAD TWO OR MORE FALLS IN THE PAST YEAR OR ANY FALL WITH INJURY IN T HE PAST YEAR?: No PRIOR SURGERY. DID THE PATIENT HAVE MAJOR SURGERY DURING THE 100 DAYS PRIOR TO ADMISSION?: No THERAPY NOTES FROM ACUTE CARE: Attached. SPECIAL NEEDS: - Safety Concerns Skin breakdown precautions needed due to skin breakdown risk PRECAUTIONS: - Weight Bearing Precaution WBAT left LE PATIENT NEEDS ACTIVE AND ONGOING THERAPEUTIC INTERVENTION OF MULTIPLE THERAPY DISCIPLINES, INCLUDING: - Dietary and Nutrition Adequate Nutrition. Nutritional Education. Nutritional Supplements. - Occupational Therapy Cognitive Retraining. Evaluate and Treat. Transfer Training. ADL Training. Adaptive Equipment. UE Str engthening. Household Tasks. Patient/Family Education. Safety Awareness. Visual Perceptual Training. - Speech Therapy Cognitive Training. Expressive Language Skills. Memory Strategies. Receptive Language Skills. Speech Intelligibility Training. - Physical Therapy Gait Training. Evaluate and Treat. Balance Training. LE Strengthening. Transfer Training. Mobility Tr aining. Safety Awareness. Patient/Family Education. PATIENT NEEDS CLOSE MEDICAL SUPERVISION BY A REHABILITATION PHYSICIAN FOR: Coordination of Treatment Team Medical and Co-Morbidity Management Pain Management DVT Management Diabetes Management PATIENT REQUIRES 24X7 REHAB NURSING FOR MEDICAL AND FUNCTIONAL MGT. OF THE FOLLOWING DEFICITS: Disease Management Medication Management Patient/Family Education Providing Safe Environment Skin Integrity Bowel and Bladder Management PATIENT REQUIRES INTENSIVE, COORDINATED INTERDISCIPLINARY APPROACH TO REHAB: Arranging Home Equipment/Services Discharge Planning Family Intervention/Training Floater Operator/Case Management PATIENT REHAB POTENTIAL: Osvaldo RYAN is able and expected to receive 3 hours of individualized therapy daily on at least 5 of ev stella 7 days Osvaldo CARPENTERs prognosis for significant practical improvement within a reasonable period of time appear s Good Expected level of measurable improvement will be of a practical value to Osvaldo RYAN's functional capac ity or adaptations to impairments Has a viable Discharge Plan Medically appropriate; condition is sufficiently stable to participate in intensive rehab program DISCHARGE PLAN: - Estimated Length of Stay (days) 14. - Consensus on plan Discharge plan has been discussed with primary caregiver. Patient/Family is in agreement with the jese n. Primary caregiver is in agreement with the plan. - Patient/Family Goals Return home independently. - Planned Living Setting Upon Discharge Home, to live alone. Transitional Living. Primary caregiver: Pt self. RECOMMENDED CARE LEVEL: IRF RECOMMENDATION DETAILS: Recommended Admission to Comprehensive Rehabilitation Program to Increase Functional [place] SCREENER'S COMPLETENESS CONFIRMATION: - Screening Confirmation The patient data collection on this preadmission screening form is finished PHYSICIANS REVIEW AND ADMISSION DETERMINATION Admit - Based on my review of the Pre-Admission Screening results, in my medical judgment and experie nce, I concur with the findings and recommend admission to [facility], as this patient requires an IRF level of care. SIGNATURE PANEL: Assembly Hand - [electronically] signed by Bo Arce PT on 04/26/2021 at 12:38 (DECAL CUTTER) Physician Reviewer - [electronically] signed by Dr. Eddie Hand M.D. on 04/26/2021 at 13:17 (DECAL CUTTER )
--- OUTSIDE RECORDS SUMMARY | 2021-04-26 14:26 | XMS REPORT | Clinical Summary ---
:1950 Author Organization [facility] Address [address] [place] [address] Care Team Providers Name Role Phone Angelika [...] has established a follow-up with his local orthopedic tech in March for further management. Clostridioides difficile [...] lymphoma 12/22/2020 Telephone Lymphoma and Mulugeta Myeloma Bailye Zapata RN 12/16/2020 Telemedicine Lymphoma and Dru [...] provided a numb er and name (Scott [phone]) a nd says she can be cont [...] Rogers B-cell lymphoma 11/16/2020 Documentation Radiation Oncology rAmando Craven MD PhD 11/14/2020 Orders Only Lymphoma and Elizabeth Wolf Myeloma HIGH REACH OPERATOR 11/13/2020 Orders Only Orthopaedics Kimiagaree, Unspecified fra [...] Lymphoma Yanet Gurrola Diffuse high grade R, CUFF SETTER B-cell lymphoma (Primary Dx) 11/12/2020 Orders Only [...] grade B-cell lymphoma (Primary Dx); Myeloma E, CUFF SETTER Other specified types of non-Hodgkin lymphoma, extranodal [...] Porter Adamsley L, port plac ement and fisher net scheduled 09/25/2020 Prep for Surgery Vascular Access [...] Access WoodPorterJacquie L, port plac ement and fisher net scheduled 09/24/2020 Orders Only Infectious Swapnil Rose, Long-term c urrent use Diseases of rituximab (P rimary Dx) 09/23/2020 Orders Only Lymphoma and Dru Smith, Diffuse high grade Myeloma B-cell lymphoma (Primary Dx) 09/23/2020 Orders Only Lymphoma and Priest, Diffuse high gr josephine Myeloma Anna, CUFF SETTER B-cell lymphoma (Primary Dx) 09/18/2020 Orders Only [...] Travel 09/09/2020 Travel 09/08/2020 Orders Only Infectious Nwe Robles, SARS-CoV-2 vaccination Diseases 09/08/2020 Documentation Physical Therapy MazeppaNupur Calix, PT 09/07/2020 Office Visit Head and [...] ck (Primary Anabelle Dx) TONY Grewal after 04/26/2020 Surgical History Surgery Date Site/Laterality Comments KNEE [...] 10/29/2020 11:22 AM CDT Plan of Treatment Health Maintenance Due Date Last Done Comments COVID-19 Vaccination (1) 1962 Implants Implanted Type Area Drawing Frame Tender Device Shelf Model / Identifier Expiration Date [...] Routine 11/11/2020 7:00 R esults for this EXECUTIVE VICE PRESIDENT AND CHIEF OPERATING OFFICER AM CDT procedure are i n the [...] Routine 11/01/2020 6:07 R esults for this EXECUTIVE VICE PRESIDENT AND CHIEF OPERATING OFFICER AM CDT procedure are i n the [...] Routine 10/30/2020 4:21 R esults for this EXECUTIVE VICE PRESIDENT AND CHIEF OPERATING OFFICER AM CDT procedure are i n the [...] Routine 10/25/2020 7:49 R esults for this EXECUTIVE VICE PRESIDENT AND CHIEF OPERATING OFFICER AM CDT procedure are i n the [...] Routine 10/19/2020 5:10 R esults for this EXECUTIVE VICE PRESIDENT AND CHIEF OPERATING OFFICER AM CDT procedure are i n the [...] Routine 10/17/2020 8:21 R esults for this EXECUTIVE VICE PRESIDENT AND CHIEF OPERATING OFFICER AM CDT procedure are i n the [...] Routine 10/14/2020 5:07 R esults for this EXECUTIVE VICE PRESIDENT AND CHIEF OPERATING OFFICER AM CDT procedure are i n the [...] Routine 10/11/2020 3:51 R esults for this EXECUTIVE VICE PRESIDENT AND CHIEF OPERATING OFFICER PM CDT procedure are i n the [...] Routine 10/09/2020 3:56 R esults for this EXECUTIVE VICE PRESIDENT AND CHIEF OPERATING OFFICER AM CDT procedure are i n the [...] Routine 10/06/2020 3:12 R esults for this EXECUTIVE VICE PRESIDENT AND CHIEF OPERATING OFFICER AM CDT procedure are i n the [...] Routine 10/04/2020 2:15 Re sults for this EXECUTIVE VICE PRESIDENT AND CHIEF OPERATING OFFICER PM CDT procedure are i n the [...] are i n the results section. CYTOLOGY NON-COSTUMED CHARACTER ENTERTAINER Routine 09/30/2020 4:17 Acute respiratory Re sults [...] CDT procedure are in the results section. ID CHG US GUIDE, Routine 09/30/2020 12:15 Acute injury of Resu lts for this VASCULAR ACCESS PM CDT kidney procedure ar e in the results section. ID INSERT NON-TUNNEL CV Routine 09/30/2020 12:15 Acute injury of Results for this CATH PM CDT kidney procedure are i n the results section. HC U/S GUID FOR VASC Routine 09/30/2020 12:15 Acute respirator y Results for this ACCESS PM CDT failure with procedure are i n hypoxia the results Severe sepsis with section. septic shock ID INSERT Routine 09/30/2020 12:15 Acute respiratory Result [...] Routine 09/30/2020 6:20 Re sults for this EXECUTIVE VICE PRESIDENT AND CHIEF OPERATING OFFICER AM CDT procedure are i n the [...] n the results section. 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 CYTOLOGY NON-COSTUMED CHARACTER ENTERTAINER Routine 09/22/2020 9:22 Diffuse high grade R [...] e are in the results section. after 04/26/2020 Results (ABNORMAL) .Serum Creatinine (11/14/2020 2:17 AM CDT)Only the most recent of77 resultswithin the time period is included. Pathologist Sig nature Creatinine 2.53 (H) 0.67 - 1.17 mg/dL [facility] Specimen Blood Performing Organization Address City/[facility] Phon e Number [facility] CANCER Unless otherwise noted, [address] all lab tests performed by: Division of Pathology and Laboratory Medicine [place] (ABNORMAL) .CBC (11/14/2020 2:17 AM CDT)Only the most recent of39 resultswithin the time period is included. WBC 22.7 (H) 4.0 - 11.0 [facility] K/uL [facility] RBC 2.92 (L) 4.50 - 6.00 [facility] M/uL [facility] Hgb 8.7 (L) 14.0 - 18.0 [facility] gm/dL [facility] Hct 26.6 (L) 40.0 - 54.0 % [facility] MCV 91 82 - 98 fL [facility] MCH 29.8 27.0 - 31.0 pg [facility] MCHC 32.7 31.0 - 36.0 [facility] gm/dL [facility] RDW-SD 55.0 (H) 35.1 - 46.3 fL [facility] RDW-CV 16.5 (H) 12.0 - 15.5 % [facility] Platelet count 136 (L) 140 - 440 K/uL [facility] MPV 10.6 (H) 4.0 - 10.4 fL [facility] INRBC 0.0 <=0.0 % [facility] Comment: CANCER CENTER The INRBC (instrument NRBC) value reflects the enumera tion of nucleated red blood cells contained in a 200uL samp le of whole blood analyzed by the instrument. This value may differ from the NRBC value reported in a manual differ ential, which is based on a 100 cell differential. Specimen Blood Performing Organization Address City/[facility] Phon e Number [facility] CANCER Unless otherwise noted, [address] all lab tests performed by: Division of Pathology and Laboratory [facility] Banks[facility]rummondwon [place] (ABNORMAL) Glomerular Filtration Rate (11/14/2020 2:17 AM CDT)Only the most recent of77 resultswithin the time period is included. eGFR-AA 28 (L) >=60 [facility] Comment: mL/min/1.73 [facility] CENTER Normal eGFR: >= 60 mL/min/1.73 m2 sq. m Note: The eGFR is calculated using the CKD-EPI equation. The eGFR declines with age. eGFR <60 mL/min/1.73 m2 is considered as "decreased". This equation should only be used for patients 18 and older. According to the [facility]'s Kidney Disease Outcome Quality Initiative (KDOQI) classification [...] Kidney failure <15 eGFR-CHRISS 24 (L) >=60 [facility] Comment: mL/min/1.73 [facility] Normal eGFR: >= 60 mL/min/1.73 m2 sq. m Note: The eGFR is calculated using the CKD-EPI equation. The eGFR declines with age. eGFR <60 mL/min/1.73 m2 is considered as "decreased". This equation should only be used for patients 18 and older. According to the [facility]'s Kidney Disease Outcome Quality Initiative (KDOQI) classification [...] failure <15 Specimen Blood Performing Organization Address City/State/ZIP Code Phon e Number [facility] CANCER Unless otherwise noted, [place] [address] CENTER all lab tests performed by: Division of Pathology and Laboratory Medicine [address] Fractionated Bilirubin (11/14/2020 2:17 AM CDT)Only the most recent of54 resultswithin the time period is included. Bili Total 0.4 <=1.2 mg/dL [facility] Comment: CANCER CENTER Indocyanine Green (ICG) may cause falsely elevated bilirubin results. Total and direct bilirubin must not be measured from samples containing indocyanine green. False elevation of total daniel irubin can be seen in patients with IgG concentrations above 28 g/L. Bili Direct 0.2Comment: <=0.3 mg/dL [facility] Indocyanine Green [facility] (ICG) may cause falsely elevated bilirubin results. Total and direct bilirubin must not be measured from samples containing indocyanine green. Bili Indirect 0.2 0.0 - 0.9 [facility] mg/dL [facility] Specimen Blood Performing Organization Address City/State/ZIP Code Phon e Number [facility] [place] Unless otherwise noted, [place] [address] [place] all lab tests performed by: Division of Pathology and Laboratory Medicine [address] (ABNORMAL) Differential (11/14/2020 2:17 AM CDT)Only the most recent of37 resultswithin the time period is included. Pathologist [facility] Total Cells 115 [facility] Neutrophil % 82.0 (H)Comment: The 42.0 - 66.0 % [facility] Neutrophil count [facility] includes Bands. Lymphocyte % 2.0 (L) 24.0 - 44.0 % [facility] Monocyte % 11.0 (H) 2.0 - 7.0 % [facility] Metamyelocyte % 5.0 (H)Comment: The <=0.0 % [facility] Metamyelocyte count [facility] includes Myelocytes. NRBC 1.0 (H) <=0.0 [facility] Neutrophil Abs 18.61 (H) 1.70 - 7.30 [facility] Lymphocyte Abs 0.45 (L) 1.00 - 4.80 [facility] Monocyte Abs 2.50 (H) 0.08 - 0.70 [facility] RBC Morph Present (A) Normal [facility] Spherocyte Few (A) Not Seen [facility] Anisocytosis Present (A) Not Present [facility] Ovalocyte Present (A) Not Present [facility] Tear Drop Present (A) Not Present [facility] Slide Comments See Note (A)Comment: [facility] Platelet morphology [facility] CENTER normal. Specimen Blood Performing Organization Address [facility] Phon e Number [facility] [place] Unless otherwise noted, [address] all lab tests performed by: Division of Pathology and Laboratory Medicine [address] [place] (ABNORMAL) Uric Acid (11/14/2020 2:17 AM CDT)Only the most recent of24 results within the time period is included. Pathologist Sig nature Uric Acid 8.5 (H) 3.4 - 7.0 mg/dL [facility] TER Specimen Blood Performing Organization Address [facility] Phon e Number [facility] [place] Unless otherwise noted, [address] all lab tests performed by: Division of Pathology and Laboratory Medicine [address] [place] (ABNORMAL) BUN (11/14/2020 2:17 AM CDT)Only the most recent of77 resultswithin the time period is included. Pathologist Sig nature BUN 29 (H) 6 - 23 mg/dL [facility] Specimen Blood Performing Organization Address [facility] Phon e Number [facility] CANCER Unless otherwise noted, [address] all lab tests performed by: Division of Pathology and Laboratory Medicine [address] [place] ALT (11/14/2020 2:17 AM CDT)Only the most recent of54 resultswithin the time period is included. Pathologist Sig nature ALT 16 <=41 U/L [facility] Specimen Blood Performing Organization Address City/[facility] Phon e Number [facility] CANCER Unless otherwise noted, [address] all lab tests performed by: Division of Pathology and Laboratory Medicine [address] [place] Aspartate Aminotransferase (11/14/2020 2:17 AM CDT)Only the most recent of54 resultswithin the time period is included. Pathologist Sig nature AST 19 <=40 U/L [facility] Specimen Blood Performing Organization Address City/[facility] Phon e Number [facility] CANCER Unless otherwise noted, [address] all lab tests performed by: Division of Pathology and Laboratory Medicine [facility] [place] (ABNORMAL) Total Protein (11/14/2020 2:17 AM CDT)Only the most recent of48 resultswithin the time period is included. Pathologist Sig nature Total Protein 6.2 (L) 6.4 - 8.3 g/dL [facility] Specimen Blood Performing Organization Address [facility] Phon e Number [facility] Unless otherwise noted, [address] all lab tests performed by: Division of Pathology and Laboratory Medicine [facility] [place] Phosphorus Level (11/14/2020 2:17 AM CDT)Only the most recent of78 results within the time period is included. Pathologist Sig nature Phosphorus 3.5 2.5 - 4.5 mg/dL [facility] TER Specimen Blood Performing Organization Address [facility] Phon e [facility] Unless otherwise noted, [address] all lab tests performed by: Division of Pathology and Laboratory Medicine [facility] [place] (ABNORMAL) Alkaline Phosphatase (11/14/2020 2:17 AM CDT)Only the most recent of 54 resultswithin the time period is included. Pathologist Sig nature Alk Phos 249 (H) 40 - 129 U/L [facility] Specimen Blood Performing Organization Address [facility] Phon [facility] Unless otherwise noted, [address] all lab tests performed by: Division of Pathology and Laboratory Medicine [address] [place] [address] [place] Magnesium Level (11/14/2020 2:17 AM CDT)Only the most recent of81 resultswithin the time period is included. Pathologist Sig nature Magnesium 1.8 1.6 - 2.6 mg/dL [facility] TER Specimen Blood Performing Organization Address [facility] Phon e [facility] Unless otherwise noted, [address] all lab tests performed by: Division of Pathology and Laboratory Medicine [address] [place] [address] [place] (ABNORMAL) LDH (11/14/2020 2:17 AM CDT)Only the most recent of38 resultswithin the time period is included. LDH 336 (H)Comment: 135 - 225 U/L [facility] Results greater than [facility] 1651 U/L may not be reliable due to matrix effect with extended dilution as it exceeds the named account executive s recommended limit. Caution should be exercised when interpreting such values and done in conjunction with clinical context. Specimen Blood Performing Organization Address City/[facility] Phon e Number [facility] CANCER Unless otherwise noted, [address] all lab tests performed by: Division of Pathology and Laboratory Medicine [address] [place] Glucose Level (11/14/2020 2:17 AM CDT)Only the most recent of67 resultswithin the time period is included. Glucose Level 93 70 - 99 mg/dL [facility] Comment: CANCER CENTER Effective 10/21/15, the gluco se reference intervals have been updated based on [place] Diabetes [employer] guidelines (Standards of Medical Care in Diabetes 2016. Diabetes Care 2016; 39: S13-S22). Fasting blood glucose: Normal: 70-99 mg/dL Impaired fasting glucose (in creased risk for diabetes or pre-diabetes): 100- 125 mg/dL Diabetes mellitus: >/=126 mg/dL Random blood glucose: Normal: 70-199 mg/dL Note: Random glucose >100 mg/dL is assoc iated with increased risk for diabetes Specimen Blood Performing Organization Address [facility] Phon e Number [facility] CANCER Unless otherwise noted, [address] all lab tests performed by: Division of Pathology and Laboratory Medicine [address] [place] (ABNORMAL) Calcium Level (11/14/2020 2:17 AM CDT)Only the most recent of65 resultswithin the time period is included. Pathologist Sig nature Calcium Lvl 8.3 (L) 8.4 - 10.2 mg/dL [facility] Specimen Blood Performing Organization Address City/[facility] Phon e Number [facility] CANCER Unless otherwise noted, [address] all lab tests performed by: Division of Pathology and Laboratory Medicine [address] [place] (ABNORMAL) Albumin Level (11/14/2020 2:17 AM CDT)Only the most recent of54 resultswithin the time period is included. Pathologist Sig nature Albumin Lvl 3.1 (L) 3.5 - 5.2 gm/dL [facility] Specimen Blood Performing Organization Address City/[facility]/ZIP Code Phon e Number [facility] CANCER Unless otherwise noted, [address] all lab tests performed by: Division of Pathology and Laboratory Medicine [facility] [place] (ABNORMAL) Electrolyte Panel (11/14/2020 2:17 AM CDT)Only the most recent of67 resultswithin the time period is included. Pathologist Sig nature Sodium Lvl 140 136 - 145 mEq/L [facility] Potassium Lvl 4.2 3.5 - 5.1 mEq/L [facility] Chloride 100 98 - 107 mEq/L [facility] CO2 30 (H) 22 - 29 mEq/L [facility] Anion Gap 10 4 - 14 mEq/L [facility] Specimen Blood Performing Organization Address City/[facility] Phon e Number [facility] CANCER Unless otherwise noted, [address] all lab tests performed by: Division of Pathology and Laboratory Medicine [address] [place] [address] [place] Clot Expiration Date (11/13/2020 3:47 AM CDT)Only the most recent of19 results within the time period is included. Pathologist Sig nature T & S Expiration 11/16/2020 [facility] Specimen Blood Performing Organization Address City/[facility] Phon e Number [facility] [place] Unless otherwise noted, [address] all lab tests performed by: Division of Pathology and Laboratory Medicine [facility] [address] [place] TMP Interpretation Antibody Screen Negative (11/13/2020 3:47 AM CDT)Only the most recent of19 resultswithin the time period is included. TMP Auto Neg ABSC At the present time, patien t plasma shows no evidence of RBC alloantibodies. [facility] Interp Comment: [facility] [place] MANUELA ASHLEY, Dictated by: MANUELA ASHLEY, Dictated Date/Time: 11.14.19 7:43 AM CDT Transcribed Date/Time: 11.13.2020 7:43 AM CDT Electronically Signed By: MANUELA ASHLEY on 10.26 7:43 AM C Specimen Blood Performing Organization Address [facility] Phon e Number [facility] [place] Unless otherwise noted, [address] all lab tests performed by: Division of Pathology and Laboratory Medicine [address] [place] [address] [place] (ABNORMAL) Partial Thromboplastin Time (11/13/2020 3:47 AM CDT)Only the most recent of37 resultswithin the time period is included. Pathologist Sig nature aPTT 43.1 (H) 24.7 - 36.8 [facility]() [place] Specimen Blood Performing Organization Address [facility] Phon e Number [facility] Unless otherwise noted, [address] all lab tests performed by: Division of Pathology and Laboratory Medicine [address] [place] [address] [place] ABORh (11/13/2020 3:47 AM CDT)Only the most recent of19 resultswithin the time period is included. Pathologist Sig nature ABORh. A POS [facility] Specimen Blood Performing Organization Address [facility] Phon e Number [facility] Unless otherwise noted, [address] all lab tests performed by: Division of Pathology and Laboratory Medicine [address] [place] [address] [place] (ABNORMAL) Prothrombin Time with INR (11/13/2020 3:47 AM CDT)Only the most recent of37 resultswithin the time period is included. Pathologist Sig nature PT 16.1 (H) 11.5 - 13.9 [facility]() [place] INR 1.40 (H) 0.90 - 1.10 [facility] Specimen Blood Performing Organization Address [facility] Phon e Number [facility] [place] Unless otherwise noted, [address] all lab tests performed by: Division of Pathology and Laboratory Medicine [address] [place], [place] [address]d Antibody Screen (11/13/2020 3:47 AM CDT)Only the most recent of19 resultswithin the time period is included. Pathologist Sig nature ABSC. Negative ABSC [facility] Specimen Blood Performing Organization Address [facility] Phon e Number [facility] Unless otherwise noted, [place] [address] CENTER all lab tests performed by: Division of Pathology and Laboratory Medicine [facility]5 [facility] US Renal (11/12/2020 7:36 AM CDT)Only the most recent of2 resultswithin the time period is included. Specimen Impressions [id number] - 11/12/2020 7:44 AM CDT No hydronephrosis. Narrative [id number] - 11/12/2020 7:44 AM CDT FULL RESULT: [...] bladder. IMPRESSION: No hydronephrosis. Performing Organization Address City/State/ZIP Code Phon e Number [id number] [employer] RBC:Transfusion Date: 11/11/2020 (11/11/2020 5:15 PM CDT)Only the most recent of10 resultswithin the time period is included.(ABNORMAL) Urinalysis with Microscopic (11/11/2020 5:06 PM CDT)Only the most recent of9 resultswithin the time period is included. Pathologist [facility] WBC 5 (H) 0 - 2 /HPF [facility] UA RBC 1 0 - 2 /HPF [facility] UA Mucous NOT SEEN Not Seen-Trace /HPF [facility] UA Bacteria OCC NOT SEEN /HPF [facility] UA Squam Epi OCC None-Occasional [facility] CANCER /[facility] UA Yeast 1+ (A) NOT SEEN /HPF [facility] Specimen Urine Narrative [facility] - 1 5:56 PM CDT Some reporting parameters within the Urinalysis test have changed due to the implementation of new in strumentation in the [facility], allowi ng greater sensitivity of measurement. Urinalysis results reported by the [facility] using existing instrumentation, as well as Urinalysis t esting performed manually or by backup methodology at the [facility] will remain relatively unchanged. New reporting parameters and units will now be reported for all campuses. Performing Organization Address City/State/ZIP Code Phon e Number [facility] CANCER Unless otherwise noted, [address] all lab tests performed by: Division of Pathology and Laboratory Medicine [address] [place] Sodium Urine (11/11/2020 5:06 PM CDT) Pathologist Sig nature U Sodium 28Comment: Normal range mEq/L [facility] not available for [facility] CENTER collections less than 24 hours in duration. Specimen Urine Performing Organization Address City/[facility] Phon e Number [facility] CANCER Unless otherwise noted, [address] all lab tests performed by: Division of Pathology and Laboratory Medicine [address] (ABNORMAL) Albumin Level Urine (11/11/2020 5:06 PM CDT)Only the most recent of3 resultswithin the time period is included. Urine Albumin 3.20Comment: Normal mg/dL [facility] range note available [facility] CENTER for collections less than 24 hours in duration. U Creatinine 99.7Comment: The 40.0 - 278.0 [facility] reference range mg/dL CANCER CENTER listed is for first morning urine collection. Albumin/Creatinine 32 (H) <=29 mg/g [facility] Ratio (ACR) Comment: CANCER CENTER Reference interval: [...] >300 mg/g Specimen Urine Performing Organization Address City/[facility]/ZIP [facility] Phon e Number [facility] CANCER Unless otherwise noted, [address] all lab tests performed by: Division of Pathology and Laboratory Medicine [address] [place] Urea Nitrogen Urine (11/11/2020 5:06 PM CDT) Pathologist [facility] U Urea 436Comment: Normal mg/dL [facility] range not available for [facility] CENTER collections less than 24 hours in duration. Specimen Urine Performing Organization Address [facility] Phon e Number [facility] [place] Unless otherwise noted, [address] all lab tests performed by: Division of Pathology and Laboratory Medicine [address] [place] (ABNORMAL) Protein/Creatinine Ratio Urine (11/11/2020 5:06 PM CDT)Only the most recent of3 resultswithin the time period is included. Pathologist [facility] UTP Ran 23Comment: Normal mg/dL [facility] range not available [facility] CENTER for collections less than 24 hours in duration. U Creatinine 99.7Comment: The 40.0 - 278.0 [facility] reference range mg/dL [facility] listed is for first morning urine collection. U Prot/Creat 0.23 (H) <=0.14 g/g [facility] Specimen Urine Performing Organization Address City/[facility]/ZIP [facility] Phon e Number [facility] CANCER Unless otherwise noted, [address] all lab tests performed by: Division of Pathology and Laboratory Medicine [address] [place] Creatinine Urine (11/11/2020 5:06 PM CDT) Pathologist [facility] U Creatinine 101.0Comment: The 40.0 - 278.0 [facility] reference range mg/dL [facility] [place] listed is for first morning urine collection. Specimen Urine Performing Organization Address City/[facility]/ZIP [facility] Phon e Number [facility] CANCER Unless otherwise noted, [address] all lab tests performed by: Division of Pathology and Laboratory Medicine [address] [place] (ABNORMAL) Urinalysis w/Microscopic if Indicated (11/11/2020 5:06 PM CDT)Only the most recent of9 resultswithin the time period is included. Pathologist [place] nature UA Color Yellow Straw-Yellow [facility] UA Appear Clear Clear [facility] UA Glucose NEG NEG mg/dL [facility] UA Bili NEG NEG [facility] UA Ketones NEG NEG mg/dL [facility] UA Spec Grav 1.011 1.003 - 1.035 [facility] UA Blood NEG NEG [facility] UA pH 6.0 5.0 - 9.0 [facility] UA Protein NEG NEG mg/dL [facility] UA Urobilinogen NEG NEG [facility] UA Nitrite NEG NEG [facility] UA Leuk Est Small (A) NEG [facility] Specimen Urine Performing Organization Address City/[facility] Phon e Number [facility] CANCER Unless otherwise noted, [address] all lab tests performed by: Division of Pathology and Laboratory Medicine [address] [place] [address] [place] RBC Product Ready for Repair Department Supervisor (11/11/2020 7:00 AM CDT)Only the most recent of10 resultswithin the time period is included. Juma Jack PRBC Product Ready B2 Blood [facility] for Repair Department Supervisor BankComment: [facility] Product is ready for fruit picker machine operator on November 11, 2020 08:44:54 CDT. Specimen Blood Performing Organization Address City/[facility] Phon e Number [facility] [place] Unless otherwise noted, [address] all lab tests performed by: Division of Pathology and Laboratory Medicine [address] [place] [address] [place] Prepare RBC:G15 NE, 1 Units (11/11/2020 7:00 AM CDT)Only the most recent of10 resultswithin the time period is included. Juma Jack PRBC Product Ready 1Comment: Red Blood [facility] Cells Available - [facility] Order Form 03 when ready for product issue. Unit Number [id number] [facility] Product Code [id number] [facility] Unit Expiration [id number] [facility] Unit Blood Type 6200 [facility] Product Code Text RBCIRLR CPD AS1 [facility] 500mL CANCER CENTER Crossmatch [id number] [facility] Expiration Date [facility]ER CENTER Unit Irradiated IRRADIATED [facility] Dispense Status ISSUED [facility] Unit Blood Type A Positive [facility] Product Repair Department Supervisor .BPAMComment: [facility] Location CANCER CENTER Specimen Blood Performing Organization Address City/State/ZIP Code Phon e Number [facility] CANCER Unless otherwise noted, [place] [address] CENTER all lab tests performed by: Division of Pathology and Laboratory Medicine [address] XR Foot 3+ Views Left (11/10/2020 4:20 PM CDT) Specimen Impressions [id number] - 11/10/2020 4:48 PM CDT 1. Nonspecific soft tissue swelling. 2. Consider a small enchondroma in the d istal aspect of the proximal phalanx of the third toe with an associated partial fracture. Clinical correlation for tenderness in this region may be helpful. Narrative [id number] - 11/10/2020 4:48 PM CDT FULL RESULT: [...] Organization Address City/State/ZIP Code Phon e Number [id number] COVID-19 (SARS-CoV-2) PCR-Asymptomatic (11/10/2020 1:41 PM CDT)Only the most recent of7 resultswithin the time period is included. COVID19 (SARS Not Detected Not Detected [facility] CoV-2) Result Comment: CANCER CENTER This test is a qualitative r everse-transcriptase polymerase chain reaction (RT- PCR) developed for the Tania MELISSA 6800 system and intended for the detection of [...] were verified by the Microbiology Laboratory at [facility], CLIA Accreditation #: [id number] and CAP Accreditation #: [id number]. Results must be interpreted within the context [...] frida ting if clinically indicated. COVID19 SARS CUFF SETTER Swab [facility] Source CANCER CENTER COVID19 SARS Inpatient Admission [facility] Indication CANCER CENTER Specimen Nasopharyngeal Swab Narrative [facility] - 1 2:02 AM CDT "Hematology 7 day interval retest per In fectious Disease recommendations". Performing Organization Address City/State/ZIP Code Phon e Number [facility] CANCER Unless otherwise noted, [place] [address] CENTER all lab tests performed by: Division of Pathology and Laboratory Medicine [facility] TMP Interpretation Crossmatch (11/10/2020 7:55 AM CDT)Only the most recent of7 resultswithin the time period is included. TMP XM Interp RBC units crossmatched for transfusion appear ac ceptable. [facility] Comment: CANCER CENTER MANUELA ASHLEY, Dictated by: MANUELA ASHLEY, Dictated Date/Time: 11.12.19 17:06 PM CDT Transcribed Date/Time: 11.11.2020 17:06 PM CDT Electronically Signed By: MANUELA ASHLEY, on 10.25 17:06 PM Specimen Blood Performing Organization Address City/[facility]/ZIP [facility] Phon e Number [facility] [place] Unless otherwise noted, [address] all lab tests performed by: Division of Pathology and Laboratory Medicine [address] [place] [address] [place] Peripheral Smr For Doc Review (11/09/2020 11:10 AM CDT) Pathologist Sig nature Peripheral Smear DRSHUNG [facility] CANCER CE NTER Specimen Blood Performing Organization Address [facility] Phon e Number [facility] CANCER Unless otherwise noted, [address] all lab tests performed by: Division of Pathology and Laboratory Medicine [address] [place] [address] Blood Culture (11/09/2020 11:02 AM CDT)Only the most recent of7 resultswithin the time period is included. Final Report No growth [facility] Path Review - Immunity and antibiotic use may render culture negative. Ongoing infection requires repeat culture. The results have been reviewed and electronically signed by Pathologist: [facility] Bottle/Isolator Mary Last MD, PhD #[id number] CANCER C ENTER Specimen Blood - PICC-Purple Lumen Narrative [facility] - 2:30 PM CDT From PICC line please Performing Organization Address City/[facility] Code Phon e Number [facility] [place] Unless otherwise noted, [address] all lab tests performed by: Division of Pathology and Laboratory Medicine [facility] [address] [place] X-ray Chest 2 Views (11/08/2020 7:42 AM CDT) Specimen Impressions [id number] - 11/08/2020 8:35 AM CDT No significant change of bilateral lung opacities that may represent pneumonia. Narrative [id number] - 11/08/2020 8:35 AM CDT FULL RESULT: [...] that may represent pneumonia. Performing Organization Address City/[facility] Phon e Number [id number] VRE Culture (11/08/2020 5:56 AM CDT)Only the most recent of6 resultswithin the time period is included. Final Report No Vancomycin [facility] resistant Enterococci [facility] [place] isolated Path Review - VRE VRE absent or below limits of detection. [facility] ... [facility]ER CENTER The results have been reviewed and electronically sign ed by Pathologist: Jonathon Bethea MD, PhD #[id number] Specimen Rectal Swab Performing Organization Address City/[facility] Phon e Number [facility] Unless otherwise noted, [place] [address] CENTER all lab tests performed by: Division of Pathology and Laboratory Medicine [facility] (ABNORMAL) Lower Respiratory Culture w/Gram Stain (11/07/2020 7:20 PM CDT)Only the most recent of4 resultswithin the time period is included. Final Report Moderate Yeast [facility] isolated (A) [facility] CENTER Path Review Yeast is a component of uppe r respiratory/oral jesse and may NOT be clinically significant. Recommend clinical correlation BEFORE requesting additional workup. [facility] ... CANCER CENTER The results have been reviewed and electronically sign ed by Pathologist: Jonathon Bethea MD, PhD #[id number] (A) Gram Stain Report Few WBC's seen [facility] No organisms seen. CANCER CENTER (A) Specimen BAL Performing Organization Address City/State/ZIP Code Phon e Number [facility] CANCER Unless otherwise noted, [place] [address] CENTER all lab tests performed by: Division of Pathology and Laboratory Medicine [address] [facility] Echocardiogram 2D Limited - Follow Up (11/06/2020 [...] max P.7 mmHg RVSP(TR): 40.7 mmHg 58 Performing Organization Address City/State/ZIP Code Phon e Number ISCV X-ray Chest 1 View (11/05/2020 3:44 PM CDT)Only the most recent of4 results within the time period is included. Specimen Impressions [id number] - 11/05/2020 4:06 PM CDT Persistent right upper lobe pneumonia. Narrative [id number] - 11/05/2020 4:06 PM CDT FULL RESULT: [...] right upper lobe pneumonia. Performing Organization Address City/State/ZIP Code Phon e Number [id number] (ABNORMAL) POC Glucose Screen (11/03/2020 11:28 PM [...] Sample Type Capillary POC TELCOR [facility]: [facility] Clinical Lab, [address] [place] [id number]; Automatic Pad Making Machine Operator: Yomaira Johnson MD Specimen Blood Performing [...] Main pulm art POC TELCOR Performing Lab [facility]: P[facility] Clinical Lab, [address] [place] [address], [place] [address]; Automatic Pad Making Machine Operator: Yomaira Johnson MD Specimen Blood Performing Organization Address City/[facility] Phon e Number POC TELCOR Immature Platelet Fraction (11/02/2020 4:41 AM CDT) Pathologist Sig nature IPF 5.9 0.8 - 6.2 % [facility] Specimen Blood Narrative [facility] - 1 5:14 AM CDT For patients with Platelets lower than 1 00 k/mm3 Performing Organization Address [facility] Phon e Number [facility] Unless otherwise noted, [address] all lab tests performed by: Division of Pathology and Laboratory Medicine [address] [place] [address] Retic Auto (11/02/2020 4:41 AM CDT) Pathologist Sig nature Retic Cnt Auto 0.6 0.5 - 1.5 % [facility] RETHE 37.5 23.2 - 37.5 pg [facility] IRF 16.3 2.3 - 18.0 % [facility] Specimen Blood Narrative [facility] - 1 5:14 AM CDT For patients with Platelets lower than 1 00 k/mm3 Performing Organization Address [facility] Phon e Number [facility] CANCER Unless otherwise noted, [address] all lab tests performed by: Division of Pathology and Laboratory Medicine [address] [place] [address] (ABNORMAL) NT-Pro BNP (In-House) (10/31/2020 4:13 AM CDT)Only the most recent of3 resultswithin the time period is included. Pathologist Sig nature NT ProBNP 3,919 (H) <=125 pg/mL [facility] Specimen Blood Performing Organization Address [facility] Phon e Number [facility] CANCER Unless otherwise noted, [place] [address] CENTER all lab tests performed by: Division of Pathology and Laboratory Medicine [address] [facility] Echocardiogram 2D Complete (10/29/2020 11:59 AM CDT) Specimen Narrative ISCV - 10/29/2020 2:13 PM CDT Echocardiographic Report [...] the time period is included. Specimen Impressions [id number] - 10/28/2020 11:41 AM CDT Stable masslike opacity in the right upper lobe. Bibasilar opacities may represent atelectasis, pneumonia and/or aspiration. Narrative [id number] - 10/28/2020 11:41 AM CDT FULL RESULT: [...] atelectasis, pneumonia and/or aspiration. Performing Organization Address City/[facility] Phon e Number [id number] EKG, 12-Lead (Portable) (10/28/2020)Only the most recent of9 resultswithin the time period is included. Specimen Narrative This result has an attachment that is no t available. Performing Organization Address City/[facility]/ZIP [facility] Phon e Number [id number] IECG Urine Culture (10/27/2020 12:22 PM CDT)Only the most recent of4 resultswithin the time period is included. Final Report No growth [facility] Path Review - The results have been review ed and electronically signed by Pathologist: [facility] Urine Mary Last MD, PhD #[id number] CANCER [facility] Specimen Urine, Catherized Page Performing Organization Address [facility] Phon e Number [facility] CANCER Unless otherwise noted, [place] [address] CENTER all lab tests performed by: Division of Pathology and Laboratory Medicine [address] [place] Tobramycin Random (10/27/2020 9:55 AM CDT) Pathologist Sig nature Tobra Lvl <0.43 mcg/mL [facility] Comment: CANCER CENTER No reference ranges establis hed for random levels, please refer to trough and/or peak levels provided: Toxic random level: >10 mcg/mL Therapeutic Trough Level: <=2 mcg/mL Toxic Trough Level: >2 mcg/mL Therapeutic Peak Level: 5-10 mcg/mL Toxic Peak Level: >10 mcg/mL Tobra Ds Dt 10/27/2020 [facility] Comment: CANCER CENTER Level, date, and time of previous dose is not availabl e for this sample. The date reported is the sample collection date. Tobra Ds Tm see note [facility] Comment: CANCER CENTER Level, date, and time of previous dose is not availabl e for this sample. The date reported is the sample collection date. Specimen Blood Narrative [facility] - 11:34 AM CDT Please draw 30 minutes before dose is du e on 10/27 at 11am Performing Organization Address City/[facility] Phon e Number [facility] [place] Unless otherwise noted, [address] all lab tests performed by: Division of Pathology and Laboratory Medicine [address] [place] [address] [place] HBV DNA Quant (10/27/2020 3:32 AM CDT)Only the most recent of2 resultswithin the time period is included. Pathologist [facility] HBV DNA [facility] Undetected Undetected IU/mL [facility] Comment: [facility] Result in log IU/mL is Undetected. ADDITIONAL INFORMATION ------ The quantification range of this assay is 10 to 1,000,000,000 IU/mL (1.00 log to 9.00 log IU/mL). Test ing was performed using the melissa HBV test ([employer] with the melissa 6800 System. Test Performed by: [address] [address] Automatic Pad Making Machine Operator: Alonso Neville M.D. Ph.D.; CLIA# [id number] Specimen Blood Performing Organization Address City/[facility] Phon e Number [facility] Unless otherwise noted, [address] all lab tests performed by: Division of Pathology and Laboratory Medicine [address] [place] [address] [place] (ABNORMAL) Ferritin Level (10/27/2020 3:32 AM CDT)Only the most recent of10 resultswithin the time period is included. Pathologist [facility] nature Ferritin Lvl 899 (H) 30 - 400 ng/mL [facility]ER CENTER Specimen Blood Performing Organization Address City/State/ZIP Code Phon e Number [facility] CANCER Unless otherwise noted, [place] [address] CENTER all lab tests performed by: Division of Pathology and Laboratory Medicine [address] [place] US Leg Venous Doppler Bilateral (10/23/2020 1:44 PM CDT) Specimen Impressions [id number] - 10/23/2020 2:49 PM CDT Negative for deep venous thrombosis in t he bilateral lower extremities. Narrative [id number] - 10/23/2020 2:49 PM CDT FULL RESULT: [...] he bilateral lower extremities. Performing Organization Address City/[facility] Phon e Number [id number] XR Abdomen 1 View Portable (10/23/2020 12:11 PM CDT)Only the most recent of7 resultswithin the time period is included. Specimen Impressions [id number] - 10/23/2020 12:52 PM CDT NG tube side-port overlying the gastric fundus and is appropriately positioned. Narrative [id number] - 10/23/2020 12:52 PM CDT FULL RESULT: [...] Organization Address City/State/ZIP Code Phon e Number [id number] CT Chest without Contrast (10/22/2020 8:09 AM CDT) Specimen Impressions [id number] - 10/22/2020 8:28 AM CDT Right upper lobe masslike opacity and bilateral patchy groundglass lung opacities, likely infectious/inflammatory. Small bilateral pleural effusions, right greater than the left. Interval decrease of left axillary adeno evelyne. Narrative [id number] - 10/22/2020 8:28 AM CDT FULL RESULT: [...] graft changes. Atherosclerosis of the aorta and chemehuevi coronary arteries. Left PICC line with its [...] graft changes. Atherosclerosis of the aorta and chemehuevi coronary arteries. Left PICC line with its [...] left axillary adeno evelyne. Performing Organization Address City/[facility] Phon e Number [id number] Gastrointestinal Multiplex Panel (10/21/2020 1:49 PM CDT) Campylobacter Not Detected Not Detected [facility] C difficile DNA (GI Refer to [facility] Multi Panel) separate [facility] difficile DNA Assay for results Plesiomonas shigelloides Not Detected Not Detected [facility] Salmonella Not Detected Not Detected [facility] Vibrio Not Detected Not Detected [facility] Vibrio cholerae Not Detected Not Detected [facility] Yersinia enterocolitica Not Detected Not Detected [facility] Enteroaggregative E. Not Detected Not Detected [facility] coli (EAEC) [facility] Enteropathogenic E. coli Not Detected Not Detected [facility] (EPEC) [facility] Enterotoxigenic E. coli Not Detected Not Detected [facility] (ETEC) [facility] Shiga-like Not Detected Not Detected [facility] toxin-producing E. col [facility] (STEC) E. coli O157 Not Applicable Not Detected [facility] Shigella/Enteroinvasive Not Detected Not Detected [facility] E. coli (EIEC) [facility] Cryptosporidium Not Detected Not Detected [facility] Cyclospora cayetanensis Not Detected Not Detected [facility] Entamoeba histolytica Not Detected Not Detected [facility] Giardia lamblia Not Detected Not Detected [facility] Adenovirus F 40/41 Not Detected Not Detected [facility] Astrovirus Not Detected Not Detected [facility] Norovirus GI/GII Not Detected Not Detected [facility] Rotavirus A Not Detected Not Detected [facility] Sapovirus (I, II, IV and Not Detected Not Detected [facility] V) CANCER CENTER Specimen Stool Performing Organization Address City/[facility]/ZIP Code Phon e Number [facility] CANCER Unless otherwise noted, [place] [address] [place] all lab tests performed by: Division of Pathology and Laboratory Medicine Jerzy [address] [place] Gastrointestinal Multiplex Panel Path Review (10/21/2020 1:49 PM CDT) Pathologist Sig nature GIMP ID No diarrheal pathogens detec jigar by multiplex nucleic acid detection. A negative result does not rule-out the possibility of a diarrheal pathogen not are detected by this panel. Non-infectious causes of diarrhea should also be considered. [facility] ... CANCER CENTER Reviewed and Electronically signed by Pathologist: Jonathon Bethea MD, PhD #[id number] Comment: Performed by real-time PCR m ethodology. [...] is recommended. JONATHON BETHEA MD, PhD - [id number] Dictated by: JONATHON BETHEA MD, PhD - [id number] Dictated Date/Time: 10.24.19 15:12 PM CDT Transcribed Date/Time: 10.23.2020 15:12 PM CDT Electronically Signed By: DANNY BETHEA MD, PhD - [id number] on 10.23.2020 15:12 PM Specimen Stool Performing Organization Address City/State/ZIP Code Phon e Number [facility] CANCER Unless otherwise noted, [place] [address] [place] all lab tests performed by: Division of Pathology and Laboratory Medicine [address] Clostridium Difficile DNA Path Review (10/21/2020 1:49 PM CDT) C diff DNA ID C. difficile EIA is performe d only on stools positive for C. difficile DNA and detects the presence of C. difficile toxin proteins via a rapid immunoassay. Patients positive for BOTH C. difficile DNA and EIA are more likely to have a C. difficile [facility] infection. CANCER CENTER ... Reviewed and Electronically signed by Pathologist: Jonathon Bethea MD, PhD #[id number] Comment: C. difficile Toxin DNA (Prim kelly [...] repeat testing. JONATHON BETHEA MD, PhD - [id number] Dictated by: JONATHON BETHEA MD, PhD - [id number] Dictated Date/Time: 10.24.19 14:51 PM CDT Transcribed Date/Time: 10.23.2020 14:51 PM CDT Electronically Signed By: DANNY BETHEA MD, PhD - [id number] on 10.23.2020 14:51 PM Specimen Stool Performing Organization Address City/State/ZIP Code Phon e Number [facility] CANCER Unless otherwise noted, [address] all lab tests performed by: Division of Pathology and Laboratory Medicine [address] [place] [address] (ABNORMAL) Clostridium Difficile DNA Assay (10/21/2020 1:49 PM CDT) C difficile DNA Positive (A) Negative [facility] C difficle Toxin EIA Positive (A) Negative [facility] C difficile C. difficile EIA is performe d only on stools positive for C. difficile DNA and detects the presence of C. difficile toxin proteins via a rapid immunoassay. Patients positive for BOTH C. difficile DNA and EIA are more likely to have a C. difficile [facility] Interpretation infection. CANCER CENTER Specimen Stool Performing Organization Address City/[facility] Phon e Number [facility] CANCER Unless otherwise noted, [address] all lab tests performed by: Division of Pathology and Laboratory Medicine [address] [place] [address] CT Abdomen Pelvis without Contrast (10/21/2020 12:16 AM CDT) Specimen Impressions [id number] - 10/21/2020 10:11 AM CDT Very limited [...] Dr. Cheney I personally reviewed these image(s) shalaniecy reaves with the resident's/fellow's interpretations, certify that if a procedure was performed I was physically present, and agree with the final report. Narrative [id number] - 10/21/2020 10:11 AM CDT FULL RESULT: [...] 10/21/2020 FULL RESULT: Examination: CT ABDOMEN PELVIS WO JAMEY MANCUSO, 10/21/2020 12:16 AM Clinical History: Diffuse high [...] Cheney I personally reviewed these image(s) shala reaves with the resident's/fellow's interpretations, certify that if a procedure was performed I was physically present, and agree with the final report. Performing Organization Address City/State/ZIP Code Phon e Number [id number] Lactic Acid, Venous (10/19/2020 4:25 AM CDT)Only the most recent of42 results within the time period is included. Pathologist Sig nature V Lactate 0.8 0.5 - 1.6 mmol/L [facility] CANCER CE NTER Specimen Blood Performing Organization Address City/[facility] Code Phon e Number [facility] [place] Unless otherwise noted, [address] all lab tests performed by: Division of Pathology and Laboratory Medicine [facility] (ABNORMAL) Complete Blood Count w/o Differential (10/19/2020 4:25 AM CDT)Only the most recent of21 resultswithin the time period is included. WBC 7.1 4.0 - 11.0 [facility] K/uL [facility] RBC 2.73 (L) 4.50 - 6.00 [facility] M/uL [facility] Hgb 7.9 (L) 14.0 - 18.0 [facility] gm/dL [facility] Hct 24.5 (L) 40.0 - 54.0 % [facility] MCV 90 82 - 98 fL [facility] MCH 28.9 27.0 - 31.0 pg [facility] MCHC 32.2 31.0 - 36.0 [facility] gm/dL [facility] RDW-SD 54.5 (H) 35.1 - 46.3 fL [facility] RDW-CV 16.9 (H) 12.0 - 15.5 % [facility] Platelet count 81 (L) 140 - 440 K/uL [facility] MPV 10.3 4.0 - 10.4 fL [facility] INRBC 0.0 <=0.0 % [facility] Comment: CANCER CENTER The INRBC (instrument NRBC) value reflects the enumera tion of nucleated red blood cells contained in a 200uL samp le of whole blood analyzed by the instrument. This value may differ from the NRBC value reported in a manual differ ential, which is based on a 100 cell differential. Specimen Blood Performing Organization Address [facility] Phon e Number [facility] CANCER Unless otherwise noted, [address] all lab tests performed by: Division of Pathology and Laboratory Medicine [address] [place] [address] Hemodialysis-IHD (10/17/2020 12:39 PM CDT) Kerline Perea [...] min pre HD Y/N/NA Midodrine given by medicare sales representative Y/N/NA Midodrine Route of Admin Hand off received Y/N/NA Hand off given Y/N/NA PO Y/N/NA EF Y/N/NA N na na na na na Y *Y= Yes N=No NA=Not Applicable Hepatitis B Surface Ag w/Confirm (10/17/2020 4:16 AM CDT)Only the most recent of6 resultswithin the time period is included. Hep Bs Ag-[place] Negative Negative [facility] Comment: CANCER CENTER Test Performed by: [facility] Er - [facility] [address], [place] [address] Automatic Pad Making Machine Operator: Alonso Neville M.D. Ph.D.; CLIA# [id number] Specimen Blood Performing Organization Address [facility] Phon e Number [facility] CANCER Unless otherwise noted, [address] all lab tests performed by: Division of Pathology and Laboratory Medicine [address] [place] [address] Hepatitis B Surface Ag (10/17/2020 4:16 AM CDT)Only the most recent of6 results within the time period is included. Pathologist Sig nature HBsAg Received See NoteComment: [facility] HBsAg was sent to a [facility] reference lab for testing. Expect results on Hepatitis B Surface Antigen w/ Confirm within 96 hours. Specimen Blood Performing Organization Address City/[facility]/ZIP Code Phon e Number [facility] CANCER Unless otherwise noted, [address] all lab tests performed by: Division of Pathology and Laboratory Medicine [address] [place] [address] (ABNORMAL) ABG (10/12/2020 4:48 AM CDT)Only the most recent of30 resultswithin the time period is included. pH Art 7.51 (H)Comment: 7.35 - 7.45 [facility] Results are [facility] corrected for a body temp of 37C. pCO2 Art 33.9 (L) 35.0 - 48.0 [facility] mmHg [facility] pO2 Art 104 83 - 108 mmHg [facility] HCO3 Art 27 21 - 28 mmol/L [facility] Base Excess Art 4 (H) -2 - 3 mmol/L [facility] O2 Sat Art 99 95 - 99 % [facility] Specimen Blood Performing Organization Address City/[facility] Phon e Number [facility] CANCER Unless otherwise noted, [address] all lab tests performed by: Division of Pathology and Laboratory Medicine [address] [place] [address] Vancomycin Level Random (10/12/2020 1:28 AM CDT)Only the most recent of2 resultswithin the time period is included. Vanco Lvl 9.9 mcg/mL [facility] Comment: CANCER CENTER Therapeutic Random Level: 5-40 mcg/mL Toxic random level: >40 mcg/mL Therapeutic Trough Level: 5-20 mcg/mL Toxic Trough Level: >20 mcg/mL Therapeutic Peak Level: 25-40 mcg/mL Toxic Peak Level: >40 mcg/mL Vanco Dose Time See note [facility] Comment: CANCER CENTER Level, date, and time of previous dose is not availabl e for this sample. The date reported is the sample collection date. Vanco Dose Date 10/12/2020 [facility] Comment: CANCER CENTER Level, date, and time of previous dose is not availabl e for this sample. The date reported is the sample collection date. Specimen Blood Performing Organization Address City/State/ZIP Code Phon e Number [facility] CANCER Unless otherwise noted, [place] [address] [place] all lab tests performed by: Division of Pathology and Laboratory Medicine [facility] XR Chest 1 View Post Implant (10/10/2020 3:06 PM CDT)Only the most recent of2 resultswithin the time period is included. Specimen Impressions [id number] - 10/10/2020 3:58 PM CDT Adjustment of left PICC which now terminates in the upper right atrium. Narrative [id number] - 10/10/2020 3:58 PM CDT FULL RESULT: [...] the upper right atrium. Performing Organization Address City/[facility] Code Phon e Number [id number] General Laboratory Add-On Test (10/10/2020 1:37 AM CDT)Only the most recent of4 resultswithin the time period is included. Pathologist Sig nature Ordered Test Added [facility] Test Needed CMP, mag, phos [facility] Specimen Existing Performing Organization Address City/[facility] Phon e Number [facility] CANCER Unless otherwise noted, [address] all lab tests performed by: Division of Pathology and Laboratory Medicine [facility] [address] (ABNORMAL) Calcium Ionized, Venous (10/09/2020 8:38 AM CDT)Only the most recent of35 resultswithin the time period is included. Pathologist Sig nature V Ion Ca 1.14 (L) 1.15 - 1.29 mmol/L [facility] Specimen Blood Performing Organization Address City/[facility] Phon e Number [facility] CANCER Unless otherwise noted, [address] all lab tests performed by: Division of Pathology and Laboratory Medicine [facility] [address] [place] MRSA Screening Culture (2020 12:27 PM CDT) Final Report No Methicillin resistant [facility] Staphylococcus aureus [facility] isolated. Path Review The results have been review ed and electronically signed by Pathologist: [facility] [place] KARY Last MD, PhD #[id number] CANCER CENT ER Specimen Nasal Performing Organization Address City/[facility] Phon e Number [facility] CANCER Unless otherwise noted, [address] all lab tests performed by: Division of Pathology and Laboratory Medicine [facility] [place] Transfuse platelets:Transfusion Date: 10/04/2020 (10/04/2020 5:50 PM CDT)TMP Exception (10/04/2020 4:45 PM CDT) TMP Exception Patient A Pos transfused wit h O Pos platelets. This is due to temporary unavailability of ABO compatible platelets TAVON QUINONEZ Interp Comment: CANCER CENTER LISETTE SINGH, Dictated by: LISETTE SINGH, Dictated Date/Time: 10.06.19 10:15 AM CDT Transcribed Date/Time: 10.05.2020 10:15 AM CDT Electronically Signed By: LISETTE SINGH, on 0 10.05.2020 10:15 AM Specimen Blood Performing Organization Address City/State/ZIP Code Phon e Number [facility] CANCER Unless otherwise noted, [address] all lab tests performed by: Division of Pathology and Laboratory Medicine Jerzy [address] PLT Product Ready for Repair Department Supervisor (10/04/2020 2:15 PM CDT) PLT Product Ready B2 Blood [facility] for Repair Department Supervisor BankComment: [facility] Product is ready for fruit picker machine operator on October 04, 2020 16:05:02 CDT. Specimen Blood Performing Organization Address City/[facility] Phon e Number [facility] CANCER Unless otherwise noted, [address] all lab tests performed by: Division of Pathology and Laboratory Medicine [facility] [place] Prepare platelets:Transfusion Date: 10/04/2020; Transfusion Indications: Actively Bleeding; G707, 1 Units (10/04/2020 2:15 PM CDT) PLT Product Ready ApprovedComment: [facility] Platelet order has [facility] been approved. Order Form 3 when ready for product issue. Expect 2 hours for platelet concentration. Unit Number [id number] [facility] Product Code [id number] [facility] Unit Expiration [id number] [facility] Unit Blood Type 5100 [facility] Product Code Text PLATELETS Pooled IR [facility] LR ID CANCER CENTER Number of Units in 4 [facility] Unit Irradiated IRRADIATED [facility] Unit Leukoreduced LEUKOREDUCED [facility] Dispense Status ISSUED [facility] Unit Blood Type O Positive [facility] Product Repair Department Supervisor .BPAMComment: [facility] Location CANCER CENTER Specimen Blood Performing Organization Address City/State/[facility] Code Phon e Number [facility] CANCER Unless otherwise noted, [address] all lab tests performed by: Division of Pathology and Laboratory Medicine [facility] [place] (ABNORMAL) Fibrinogen (10/04/2020 12:40 PM CDT)Only the most recent of2 results within the time period is included. Pathologist Sig nature Fibrinogen 193 (L) 214 - 503 mg/dL [facility] [address] Specimen Blood Performing Organization Address [facility]/ZIP Code Phon e Number [facility] CANCER Unless otherwise noted, [address] all lab tests performed by: Division of Pathology and Laboratory Medicine [facility] [place] Castellanod TSH (10/01/2020 4:48 PM CDT) Pathologist Sig nature TSH 1.11 0.27 - 4.20 mcunit/mL [facility] CAN ER CENTER Specimen Blood Performing Organization Address City/[facility] Phon e Number [facility] CANCER Unless otherwise noted, [address] all lab tests performed by: Division of Pathology and Laboratory Medicine [address] [place] [address] [place] Free T4 (10/01/2020 4:48 PM CDT) Pathologist Sig nature T4 Free 1.11 0.93 - 1.70 ng/dL [facility] C ENTER Specimen Blood Performing Organization Address [facility] Phon e Number [facility] CANCER Unless otherwise noted, [address] all lab tests performed by: Division of Pathology and Laboratory Medicine [address] [place] [address] [place] (ABNORMAL) VBG (10/01/2020 12:47 AM CDT)Only the most recent of3 resultswithin the time period is included. pH Dom 7.27 (L)Comment: 7.32 - 7.43 [facility] Results are CANCER CENTER corrected for a body temp of 37C pCO2 Dom 43.9 41.0 - 51.0 [facility] mmHg [facility] CENTER pO2 Dom 44 mmHg [facility] HCO3 Dom 20 (L) 21 - 28 mmol/L [facility] Base Excess Dom -6 (L) -2 - 3 mmol/L [facility] O2 Sat Dom 67 % [facility] Specimen Blood Performing Organization Address [facility] Phon e Number [facility] CANCER Unless otherwise noted, [address] all lab tests performed by: Division of Pathology and Laboratory Medicine [address] [place] [address] [place] Transfuse fresh frozen plasma:Transfusion Date: 09/30/2020 (09/30/2020 6:27 PM CDT)Only the most recent of2 resultswithin the time period is included. Pneumocystis jiroveci Quant, BAL (09/30/2020 4:25 PM CDT) P. jiroveci Not Detected Not Detected [facility] Comment: copies/mL [facility] Assay Range: 84 copies/mL to 1.00E+08 copies/mL The limit of quantitation (LOQ) is 84 copies/mL. Pneum ocystis jiroveci DNA detected below the LOQ will be reported a s Detected:<84 copies/mL. This test was developed and its performance characteri stics determined by [employer]. It has not been cleare d or approved by the U.S. Food and Drug Administration. Results shou ld be used in conjunction with clinical findings, and should not for m the sole basis for a diagnosis or treatment decision. Performed At: [facility] [address] [place] [address] Paranormal Investigator: Carroll Bill Ph.D., BCLD (ABB) CLIA#: [id number] Phone: Specimen BAL Narrative [facility] - 1 9:08 AM CDT From RUL and L Performing Organization Address City/State/ZIP Code Phon e Number [facility] CANCER Unless otherwise noted, [place] [address] [place] all lab tests performed by: Division of Pathology and Laboratory Medicine [facility] [place] (ABNORMAL) [employer] Culture w/Smear (09/30/2020 4:25 PM CDT) Final Report Acid fast bacilli isolated [facility] Identification confirmed as: Mycobacterium avium [facility] Identified by 16S ribosomal DNA sequencing. The sequencing procedure was developed and its performance characteristics determined by [facility] microbiology laboratory. It has not been cleared or approved by the U.S. Food and Drug Administration (A) Path Review - AFB The results have been review ed and electronically signed by Pathologist: [facility] JYOTI MCCALL MD #[id number] [facility] (A) Acid Fast Stain No Acid Fast Bacilli [facility] Truant seen in direct smear CANCER CENTER (A) Specimen BAL - Lung, Right Middle Lobe Narrative [facility] - 1 8:41 PM CDT And RUL Performing Organization Address City/[facility]/ZIP Code Phon e Number [facility] CANCER Unless otherwise noted, [address] all lab tests performed by: Division of Pathology and Laboratory Medicine [address] Legionella Culture (09/30/2020 4:25 PM CDT) Final Report No Legionella species [facility] Path Review - The results have been review ed and electronically signed by Pathologist: [facility] Legionella Mary Last MD, PhD #[id number] CAN[facility]ER [facility] ER Specimen BAL - Lung, Right Middle Lobe Narrative [facility] - 1 4:36 PM CDT Label says RML & RUL Performing Organization Address [facility] Code Phon e Number [facility] [place] Unless otherwise noted, [address] all lab tests performed by: Division of Pathology and Laboratory Medicine [address] (ABNORMAL) Fungus Culture (09/30/2020 4:25 PM CDT) Final Report Few Yeast isolated [facility] Probable oral jesse [facility] (A) Path Review - The results have been review ed and electronically signed by Pathologist: [facility] Fungus Mary Last MD, PhD #[id number] CAN[facility]ER [facility] ER (A) Specimen BAL - Lung, Right Middle Lobe Narrative [facility] - 1 4:36 PM CDT And RUL Cultures are held for 4 weeks before fin alization. Performing Organization Address City/[facility]/ZIP Code Phon e Number [facility] [place] Unless otherwise noted, [address] all lab tests performed by: Division of Pathology and Laboratory Medicine [facility] Cytology Non-Telephone Sex Worker Interpretation (09/30/2020 4:17 PM CDT)Only the most recent of 2 resultswithin the time period is included. Gross Description A: [facility] 1 Diff Quik; 1 Pap Stain Slides 15 ml. slightly cloudy pink fluid Specimen concentrated by cytocentrifugation technique Cytolyt Major Classification [facility]/benign [facility] Electro nically signed by Yang Garcia MD on 021 at 6:36 PM Diagnosis A. Lung, right upper lobe, bronchoalveolar lavage: [facility] No viral changes at 6:36 PM GMS stain, negative for fungal forms GMS stain, negative for Pneumocystis Iron stain, essentially negative Comment Controls are [facility] appropriate. Retained/Biomarker SR: 2 S, 2 SP [facility] Testing Informational Points Some tests reported [facility] here may have been developed and performance characteristics determined by [facility] Pathology and Laboratory Medicine. These tests have not been specifically cleared or approved by the U.S. Food and Drug Administration. Specimen Fluid - Bronchus, Right Upper Lobe Performing Organization Address City/State/ZIP Code Phon e Number [facility] [place] [address] [address] ID INSERT CATH,ART,CUTDOWN,SHORTTERM, HC U/S GUID FOR VASC ACCESS (09/30/2020 12:15 PM CDT) Narrative Chano Willams NP - 09/30/2020 12:15 PM CDT Chano Willams NP 10/02/2020 6:00 AM Arterial line insertion Date/Time: 09/30/2020 12:15 PM Consent Obtained: emergent situation Consent given by: patient (I spoke with the patient's son) Risk discussed: bleeding, infection and pain [place] Protocol completed: yes Provider Information: Performed by: [...] for procedure) Procedure Description: Equipment: Arrow Kit [id number] Needle gauge: 20 Procedure Details: Equipment and [...] placement. Dr. Queen aware of successful placement. ID INSERT NON-TUNNEL CV CATH, ID CHG US GUIDE, VASCULAR ACCESS (09/30/2020 12:15 PM CDT) Narrative Chano Willams NP - 09/30/2020 12:15 PM CDT Chano Willams NP 10/02/2020 6:00 AM Date/Time: 09/30/2020 12:15 PM Provider Information: Performed by: Chano Willams NP Authorized by: Chano Willams NP [employer] Worker present: no Patient Diagnosis: Pre-operative diagnosis: Acute Renal gen lure Respiratory failure Septic shock Post-operative diagnosis: unchanged Indications: Indications: vascular access (dialysis) Pre-Procedure Note: Patient examined pre-procedure: yes Chart reviewed pre-procedure, including labs, images, history and physical exam: yes software solutions architect: recruitment advertising manager not lola irvin Pre-procedure patient condition: sedated (from recent intubation) [...] of successful placement. FFP Product Ready for Repair Department Supervisor (09/30/2020 6:20 AM CDT) FFP Product Ready B2 Blood [facility] for Repair Department Supervisor BankComment: CANCER CENTER Product is ready for fruit picker machine operator on September 30, 2020 11:12:03 CDT. Specimen Blood Performing Organization Address City/State/ZIP Code Phon e Number [facility] CANCER Unless otherwise noted, [place] [address] CENTER all lab tests performed by: Division of Pathology and Laboratory Medicine [address] [place] [address] [place] Prepare fresh frozen plasma:Transfusion Date: 09/30/2020; Transfusion Indications: Prothrombin time greater than 18 seconds; G701, 2 Units (09/30/2020 6:20 AM CDT) FFP Product Ready 2Comment: Fresh [facility] Frozen Plasma [facility] CENTER Available - Order Form 03 when ready for product issue. Unit Number [id number] [facility] Product Code [id number] [facility] CANCER CENTER Unit Expiration [id number] [facility] Unit Blood Type 6200 [facility] Product Code Text PLASMA IR CPD [facility] Unit Irradiated IRRADIATED [facility] Dispense Status ISSUED [facility] Unit Blood Type A Positive [facility] Product Repair Department Supervisor .BPAMComment: [facility] Location CANCER CENTER Unit Number [id number] [facility] Product [facility] [id number] [facility] Unit Expiration [id number] [facility] Unit Blood Type 6200 [facility] Product [facility] PLASMA IR CPD [facility] Unit Irradiated IRRADIATED [facility] Dispense Status ISSUED [facility] Unit Blood Type A Positive [facility] Product Repair Department Supervisor .BPAMComment: [facility] Location CANCER CENTER Specimen Blood Performing Organization Address City/State/ZIP Code Phon e Number [facility] [place] Unless otherwise noted, [place], [place] [id number] [place] [address] all lab tests performed by: Division of Pathology and Laboratory Medicine [address] (ABNORMAL) Cardiac Panel (09/30/2020 2:54 AM CDT)Only the most recent of6 resultswithin the time period is included. CK 138 39 - 308 U/L [facility] CK MB <2.0 <=10.4 ng/mL [facility] Troponin T 123 (C) <=18 ng/L [facility] Comment: CANCER CENTER < 19 ng/L Suggest retest at [...] low results. Specimen Blood Performing Organization Address City/[facility] Phon e Number [facility] CANCER Unless otherwise noted, [address] all lab tests performed by: Division of Pathology and Laboratory Medicine [address] Differential Cancel (09/29/2020 2:30 PM CDT)Only the most recent of2 results within the time period is included. Diff Cancelled See NoteComment: Due [facility] to low WBC, the [facility] CENTER differential will not be performed and it is not possible to calculate ANC. Specimen Blood Performing Organization Address [facility] Phon e Number [facility] CANCER Unless otherwise noted, [address] all lab tests performed by: Division of Pathology and Laboratory Medicine [address] Echocardiogram 2D Limited - Follow Up (09/29/2020 [...] was not perform ed in this study. (ChirpVision Study). Diastology: Tissue Doppler was not obtained. [...] AM CDT) Adenovirus Not Detected Not Detected [facility] Coronavirus 229E Not Detected Not Detected [facility] Coronavirus HKU1 Not Detected Not Detected [facility] Coronavirus NL63 Not Detected Not Detected [facility] Coronavirus OC43 Not Detected Not Detected [facility] COVID19 (SARS-CoV-2) Not Detected Not Detected [facility] Human Metapneumovirus Not Detected Not Detected [facility] Human Not Detected Not Detected [facility] Rhinovirus/Enterovirus [facility] Influenza A Not Detected Not Detected [facility] Influenza A H1 Not Detected Not Detected [facility] Influenza A H1 2009 Not Detected Not Detected [facility] Influenza A H3 Not Detected Not Detected [facility] Influenza B Not Detected Not Detected [facility] Parainfluenza 1 Not Detected Not Detected [facility] Parainfluenza 2 Not Detected Not Detected [facility] Parainfluenza 3 Not Detected Not Detected [facility] Parainfluenza 4 Not Detected Not Detected [facility] Respiratory Syncytial Not Detected Not Detected [facility] Virus [facility] Bordetella Not Detected Not Detected [facility] Parapertussis [facility] Bordetella pertussis Not Detected Not Detected [facility] Chlamydiophila Not Detected Not Detected [facility] pneumoniae [facility] Mycoplasma pneumoniae Not Detected Not Detected [facility] Specimen Nasopharyngeal Swab Narrative [facility] - 9:00 AM CDT The BioFire RP2.1 is a real-time, nested multiplexed polymerase chain reaction test designed to simul taneously identify nucleic acids from 22 different viruses and bacteria associated with respiratory tract infection, including SARS-CoV-2, from a single nasopharyngeal swab (SETTLEMENT WORKER) specimen. Spec ifically, the SARS-CoV-2 primers contained [...] to perform moderate-complexity and high-complexity tests. The M icrobiology Laboratory at [facility], CLIA Accreditation #[id number] and CAP Accreditation #[id number], verified the performance characteristics of this assay. Microbiology Laboratory at [facility] performs the assay using the StudyEgg System. Internal control s are used to monitor all stages of the test proces s. Performing Organization Address City/State/ZIP Code Phon e Number [facility] [place] Unless otherwise noted, [place] [address] [place] all lab tests performed by: Division of Pathology and Laboratory Medicine [place] OSElise Chest (09/28/2020 11:51 AM CDT) Specimen Narrative Systemgenerated, Documentation - 021 11:51 AM CDT Study acquired at another institution. For comparison only. No [facility] originated interpretation requested or a vailable. Glucose, Random (09/23/2020 5:22 AM CDT)Only the most recent of6 resultswithin the time period is included. Glucose Random 123 70 - 199 mg/dL [facility] Comment: CANCER CENTER Effective 10/21/15, the gluco se reference intervals have been updated based on [place] Diabetes Association guidelines (Standards of Medical Care [...] for diabetes Specimen Blood Performing Organization Address [facility] Phon e Number [facility] [place] Unless otherwise noted, [address] all lab tests performed by: Division of Pathology and Laboratory Medicine [address] [place] Anion Gap (09/23/2020 5:22 AM CDT)Only the most recent of6 resultswithin the time period is included. Pathologist Sig nature Anion Gap 9 4 - 14 mEq/L [facility] Specimen Blood Performing Organization Address [facility] Phon e Number [facility] CANCER Unless otherwise noted, [address] all lab tests performed by: Division of Pathology and Laboratory Medicine [address] [place] Uric Acid Rasburicase (09/23/2020 5:22 AM CDT)Only the most recent of5 results within the time period is included. Pathologist Sig nature Uric MICHELLE 5.4 3.4 - 7.0 mg/dL [facility] TER Specimen Blood Performing Organization Address [facility] Phon e Number [facility] CANCER Unless otherwise noted, [address] all lab tests performed by: Division of Pathology and Laboratory Medicine [address] [place] Sodium Level (09/23/2020 5:22 AM CDT)Only the most recent of6 resultswithin the time period is included. Pathologist Sig nature Sodium Lvl 145 136 - 145 mEq/L [facility] TER Specimen Blood Performing Organization Address [facility] Phon e Number [facility] CANCER Unless otherwise noted, [address] all lab tests performed by: Division of Pathology and Laboratory Medicine [address] [place] Potassium (09/23/2020 5:22 AM CDT)Only the most recent of6 resultswithin the time period is included. Pathologist Sig nature Potassium Lvl 3.7 3.5 - 5.1 mEq/L [facility] Specimen Blood Performing Organization Address [facility] Phon e Number [facility] [place] Unless otherwise noted, [address] all lab tests performed by: Division of Pathology and Laboratory Medicine [address] [place] (ABNORMAL) Chloride Level (09/23/2020 5:22 AM CDT)Only the most recent of6 resultswithin the time period is included. Pathologist Sig nature Chloride 110 (H) 98 - 107 mEq/L [facility] ER Specimen Blood Performing Organization Address [facility] Phon e Number [facility] CANCER Unless otherwise noted, [address] all lab tests performed by: Division of Pathology and Laboratory Medicine [address] [place] Carbon Dioxide Level (09/23/2020 5:22 AM CDT)Only the most recent of6 results within the time period is included. Pathologist Sig nature CO2 26 22 - 29 mEq/L [facility] Specimen Blood Performing Organization Address [facility] Phon e Number [facility] [place] Unless otherwise noted, [address] all lab tests performed by: Division of Pathology and Laboratory Medicine [address] [place] Lumbar Puncture with IT Chemo (09/22/2020 9:44 AM CDT) Specimen Impressions [id number] - 09/22/2020 10:16 AM CDT Technically successful fluoroscopic-guid ed lumbar puncture for CSF sampling and intrathecal administration of chemotherapy. 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 Indication: Cerebrospinal fluid sampling with administration of antineoplastic intrathecal chemotherapy, failed bedside LP on 09/21/20. Comparison: None. Proceduralist: Rosario Lund PA-C [employer] Worker: Elisa SHELLEY Pre-Procedure: Consent obtained: The risks and benefits of fluoroscopic-guided lumbar puncture were discussed with the patient and informed consent was reviewed. [place] protocol (time out) performed: Yes Sedation/Anesthesia:Local anesthesia: [...] 09/21/20. Comparison: None. Proceduralist: Rosario Lund PA-C [employer] Worker: Elisa SHELLEY Pre-Procedure: Consent obtained: The risks and benefits of fluoroscopic-guided lumbar puncture were discussed with the patient and informed consent was reviewed. [place] protocol (time out) performed: Yes Sedation/Anesthesia:Local anesthesia: [...] Organization Address City/State/ZIP Code Phon e Number [id number] B-Cell Lymphoma Panel Collection, Nonblood (09/22/2020 9:24 AM CDT) Pathologist Sig nature Flow Cytometry Yes [facility] CANCER (Received) CENTER Specimen CSF Performing Organization Address City/State/[facility] Code Phon e Number [facility] CANCER Unless otherwise noted, [place] [address] [place] all lab tests performed by: Division of Pathology and Laboratory Medicine [facility] [facility] B K/L Interpretation and Report (09/22/2020 9:24 AM CDT) Specimen Narrative This result has an attachment that is no t available. (ABNORMAL) Beta 2 Microglobulin, CSF (09/22/2020 9:24 AM CDT) Beta 2 Microglobulin 2.02 (H) 0.70 - 1.80 [facility] CSF Comment: mcg/mL CANCER CENTER ADDITIONAL INFORMATION ------ This test has been modified from the named account executive's instructions. Its performance characteristics were determined by [facility] in a manner consistent with CLIA requirements. This test has not been cleared or approved by the U.S. Food and Drug Administration. Test Performed by: [facility] [address], [place] [address] Automatic Pad Making Machine Operator: Alonso Neville M.D. Ph.D.; CLIA# [id number] Specimen CSF - CSF, Lumbar Puncture Performing Organization Address City/State/ZIP Code Phon e Number [facility] CANCER Unless otherwise noted, [address] all lab tests performed by: Division of Pathology and Laboratory Medicine [facility] [place] Flow Cytometry Specimen Collection -CSF (09/22/2020 9:24 AM CDT) Flow Cytometry Yes [facility] (Received) Comment: CANCER CENTER Test performed by: [facility] Flow Cytometry Laboratory [address] [place] [address] [place] Ap Link [id number] [facility] CENTER Specimen CSF Performing Organization Address City/[facility] Code Phon e Number [facility] CANCER Unless otherwise noted, [address] all lab tests performed by: Division of Pathology and Laboratory Medicine [address] [place] (ABNORMAL) Cell Count w/ Diff CSF (09/22/2020 9:24 AM CDT) Type CSF TapComment: When MI KARY reviewing the cell CANCER CENTER count and differential results, clinicians should consider the length of time between spinal fluid collection and testing and the clinical condition of the patient. Appear CSF CLEARComment: When CLEAR MI KARY reviewing the cell CANCER CENTER count and differential results, clinicians should consider the length of time between spinal fluid collection and testing and the clinical condition of the patient. Color CSF ColorlessComment: Colorless MI KARY When reviewing the CANCER CENTER cell count and differential results, clinicians should consider the length of time between spinal fluid collection and testing and the clinical condition of the patient. WBC CSF 5Comment: When 0 - 5 /mcL MI KARY reviewing the cell CANCER CENTER count and differential results, clinicians should consider the length of time between spinal fluid collection and testing and the clinical condition of the patient. RBC CSF 13 (H)Comment: When 0 - 0 /mcL MI KARY reviewing the cell CANCER CENTER count and differential results, clinicians should consider the length of time between spinal fluid collection and testing and the clinical condition of the patient. Tot Cells CSF 100Comment: When [facility] reviewing the cell CANCER CENTER count and differential results, clinicians should consider the length of time between spinal fluid collection and testing and the clinical condition of the patient. Neut CSF 0Comment: When 0 - 5 % [facility] reviewing the cell CANCER CENTER count and differential results, clinicians should consider the length of time between spinal fluid collection and testing and the clinical condition of the patient. Lymph CSF 82Comment: When 28 - 96 % [facility] reviewing the cell CANCER CENTER count and differential results, clinicians should consider the length of time between spinal fluid collection and testing and the clinical condition of the patient. Histiocyte CSF 18Comment: When 16 - 56 % [facility] reviewing the cell CANCER CENTER count and differential results, clinicians should consider the length of time between spinal fluid collection and testing and the clinical condition of the patient. Microorganisms CSF None SeenComment: None Seen [facility] When reviewing the CANCER CENTER cell count and differential results, clinicians should consider the length of time between spinal fluid collection and testing and the clinical condition of the patient. Specimen CSF Performing Organization Address [facility] Phon e Number [facility] CANCER Unless otherwise noted, [address] all lab tests performed by: Division of Pathology and Laboratory Medicine [address] [place] Protein CSF (09/22/2020 9:24 AM CDT) Protein CSF 33 15 - 45 mg/dL [facility] Type CSF TapComment: When [facility] reviewing the cell CANCER CENTER count and differential results, clinicians should consider the length of time between spinal fluid collection and testing and the clinical condition of the patient. Specimen CSF Performing Organization Address City/[facility] Phon e Number [facility] CANCER Unless otherwise noted, [address] all lab tests performed by: Division of Pathology and Laboratory Medicine [address] [place] (ABNORMAL) Glucose CSF (09/22/2020 9:24 AM CDT) Glucose CSF 81 (H) 40 - 70 mg/dL [facility] Type CSF TapComment: When [facility] reviewing the cell CANCER CENTER count and differential results, clinicians should consider the length of time between spinal fluid collection and testing and the clinical condition of the patient. Specimen CSF Performing Organization Address City/[facility] Phon e Number [facility] CANCER Unless otherwise noted, [address] all lab tests performed by: Division of Pathology and Laboratory Medicine [address] [place] [address] [place] (ABNORMAL) Hepatitis B Core Total Antibody (09/22/2020 4:13 AM CDT)Only the most recent of2 resultswithin the time period is included. HBc Total Ab-[place] Positive (A) Negative [facility] Comment: CANCER CENTER If clinically indicated, testing for Hepatitis B Core IgM antibody is necessary to differentiate between acu te and past HBV infection. Test Performed by: [facility] [place] [address] Automatic Pad Making Machine Operator: Alonso Neville M.D. Ph.D.; CLIA# [id number] Specimen Blood Performing Organization Address City/[facility] Phon e Number [facility] CANCER Unless otherwise noted, [address] all lab tests performed by: Division of Pathology and Laboratory Medicine [address] [place] [address] Hepatitis B Total Ig Core Ab (SCREENING) (anti-HBc total Ig; HBcAb total Ig) (09/22/2020 4:13 AM CDT)Only the most recent of2 resultswithin the time period is included. Pathologist Sig nature HBcAb Received See NoteComment: [facility] HBcAb was sent to a CANCER CENTER reference lab for testing. Expect results on Hepatitis B Core Total Ab within 96 hours. Specimen Blood Performing Organization Address City/[facility] Phon e Number [facility] CANCER Unless otherwise noted, [address] all lab tests performed by: Division of Pathology and Laboratory Medicine [address] [place], [place] [address]d Hepatitis Be Ab (09/22/2020 4:13 AM CDT) Pathologist Sig nature HBe Ab-[place] Negative Negative [facility] Comment: CANCER CENTER Test Performed by: [facility] [place] [address] Automatic Pad Making Machine Operator: Alonso Neville M.D. Ph.D.; CLIA# [id number] Specimen Blood Performing Organization Address City/[facility] Phon e Number [facility] CANCER Unless otherwise noted, [address] all lab tests performed by: Division of Pathology and Laboratory Medicine [address] [place] [address] Hepatitis Be Ag (09/22/2020 4:13 AM CDT) Pathologist Sig nature HBe Ag-Oropeza Negative Negative [facility] Comment: CANCER CENTER Test Performed by: [facility] [place] [address] Automatic Pad Making Machine Operator: Alonso Neville M.D. Ph.D.; CLIA# [id number] Specimen Blood Performing Organization Address [facility] Phon e Number [facility] CANCER Unless otherwise noted, [address] all lab tests performed by: Division of Pathology and Laboratory Medicine [address] [place] [address] [place] Hepatitis B Surface Antibody (09/22/2020 4:13 AM CDT) Hep Bs Ab-Oropeza Positive [facility] Comment: [facility] Patient is considered to be immune to infection with H BV. REFERENCE VALUE ------ Unvaccinated: Negative Vaccinated: Positive Hep Bs Ab Qn-Oropeza 1000 mIU/mL [facility] Comment: CANCER CENTER REFERENCE VALUE ------ Unvaccinated: <5.0 Vaccinated: >=12.0 Test Performed by: [facility] [place] [address] Automatic Pad Making Machine Operator: Alonso Neville M.D. Ph.D.; CLIA# [id number] Specimen Blood Performing Organization Address [facility] Phon e Number [facility] CANCER Unless otherwise noted, [address] all lab tests performed by: Division of Pathology and Laboratory Medicine [address] [place] [address] [place] (ABNORMAL) T-spot Tuberculosis (09/21/2020 4:36 PM CDT) Tspot TB NIL Cont [facility] Tspot TB Panel A [facility] Tspot TB Panel B [facility] Tspot TB Pos Cont TMTCComment: NOTE: [facility] SPOTS TO COUNT. SAT INDICATES THE WELL WAS SATURATED. Tspot TB Invalid (A) Negative [facility] MD PRE[facility] Comment: [facility] CENTER Invalid test - There were >10 spots in the negative co ntrol well. Performing Lab: [facility] [address] [place] [address] Tspot TB Interp See Note [facility] Comment: [facility] CENTER Results Interpretation: Results are Negative when [...] Organization Address City/State/ZIP Code Phon e Number [facility] [place] Unless otherwise noted, [address] all lab tests performed by: Division of Pathology and Laboratory Medicine [address] [place] [address] PROCEDURE FOR CODING (09/21/2020 3:53 PM CDT) Anna Saba NP - 09/21/2020 3:53 PM CDT Anna Priest NP 09/21/2020 4:07 PM Lumbar puncture with chemo injection Date/Time: 09/21/2020 3:53 PM Provider Information: Authorized by: Kristina Blake MD PhD Performed by: Anna Priest NP Pre-Procedure Note: Consent obtained: yes [place] protocol (time-out) performed: yes Patient Diagnosis: Pre-procedure [...] is suspected, consider testing for HIV-1 RNA. [facility] Interp Comment: CENTER JUAN J GEE, Dictated by: JUAN J GEE, Dictated Date/Time: 09.21.19 12:39 PM CDT Transcribed Date/Time: 09.20.2020 12:39 PM CDT Electronically Signed By: JUAN J GEE on 12:39 PM Specimen Blood Performing Organization Address City/State/ZIP Code Phon e Number [facility] [address] [place] [address] HIV-1/2 Antigen and Antibodies, Fourth Generation (09/19/2020 4:42 AM CDT)Only the most recent of2 resultswithin the time period is included. HIV 1/2 Ag & Ab, Non Reactive Non Reactive [facility] 4th Gen Comment: CENTER Performed at: [facility] [address] [place] [address] Specimen Blood Performing Organization Address City/State/ZIP Code Phon e Number [facility] [address] [place] [address] Chest Pulmonary Embolism with Contrast (09/18/2020 9:13 PM CDT) Specimen Impressions [id number] - 09/18/2020 9:[address] evidence of pulmonary embolism. Enlarged lymph nodes in the lower left n paula and left axilla. Narrative [id number] - 09/18/2020 9:27 PM CDT FULL RESULT: [...] are present in the thoracic aorta and chemehuevi coronary arteries. Postsurgical changes related to coronary [...] are present in the thoracic aorta and chemehuevi coronary arteries. Postsurgical changes related to coronary [...] Organization Address City/State/ZIP Code Phon e Number [id number] MRI Brain with and without Contrast (09/18/2020 8:44 PM CDT) Specimen Impressions [id number] - 09/18/2020 8:56 PM CDT No evidence of acute intracranial findin g including evidence of mass, hemorrhage, or recent infarction. Age-indeterminate but likely chronic are a of encephalomalacia and hemosiderin staining involving the LEFT frontal lobe which could be due to prior infarction. Narrative [id number] - 09/18/2020 8:56 PM CDT FULL RESULT: [...] structures are unremark able. Procedure Note Beau oLng MD - 09/18/2020 FULL RESULT: Examination: MRI [...] Organization Address City/State/ZIP Code Phon e Number [id number] HIV-1 DNA and RNA Qual PCR (09/18/2020 2:25 PM CDT) HIV-1 DNA/RNA Undetected Undetected [facility] Qual-[place] Comment: CANCER CENTER Repeat testing in 1 to 2 months is recommended for tho se at risk of HIV-1 infection. ADDITIONAL INFORMATION ------ This test was performed using the [employer] RealTime HIV- 1 Qualitative assay ([employer] [place] , [place]). This test was developed and its performance characteri stics determined by [facility] in a manner consistent with CLIA requirements. This test has not been cleared or approv ed by the U.S. Food and Drug Administration. Test Performed by: [facility] [address] [place] [address] Automatic Pad Making Machine Operator: Alonso Neville M.D. Ph.D.; CLIA# [id number] Specimen Blood Performing Organization Address City/State/ZIP Code Phon e Number [facility] CANCER Unless otherwise noted, [place] [address] CENTER all lab tests performed by: Division of Pathology and Laboratory Medicine [address] Rapid Plasma Reagin (RPR) [Syphilis SCREENING] (09/18/2020 2:25 PM CDT) Pathologist Sig nature RPR Screening Non Reactive Non Reactive [facility] Specimen Blood Performing Organization Address City/State/ZIP Code Phon e Number [facility] [address] [facility] [place] [address] TMP RPR Path Interpretation (09/18/2020 2:25 PM CDT) [facility] TMP RPR Path The Rapid Plasma Reagin (RPR ) assay is negative. If a syphilis infection is suspected, please perform a Treponemal specific screening assay. [facility] Interpretation Comment: CENTER JUAN J GEE, Dictated by: JUAN J GEE, Dictated Date/Time: 09.20.19 16:45 PM CDT Transcribed Date/Time: 09.19.2020 16:45 PM CDT Electronically Signed By: JUAN J GEE, on 021 16:45 PM Specimen Blood Performing Organization Address City/State/ZIP Code Phon e Number [facility] [address] [place] [address] (ABNORMAL) PTH Intact (09/18/2020 2:25 PM CDT) [facility] PTH Intact 157.2 (H) 15.0 - 65.0 pg/mL [facility] CANCER CENTER Specimen Blood Performing Organization Address City/State/ZIP Code Phon e Number [facility] CANCER Unless otherwise noted, [place] [address] CENTER all lab tests performed by: Division of Pathology and Laboratory Medicine [facility] Hepatitis C Virus RNA Detect/Quant (09/18/2020 2:25 PM CDT)Only the most recent of2 resultswithin the time period is included. [facility] HepC RNA PCR Undetected Undetected IU/mL [facility] Comment: CANCER CENTER Result in log IU/mL is Undetected. ADDITIONAL INFORMATION ------ The quantification range of this assay is 15 to 100,00 0,000 IU/mL (1.18 log to 8.00 log IU/mL). Testing was perfor med using the melissa HCV test ([employer]) with the melissa Cortexa0 System. Test Performed by: [facility] [address] [place] [address] Automatic Pad Making Machine Operator: Alonso Neville M.D. Ph.D.; CLIA# [id number] Specimen Blood Performing Organization Address [facility] Phon e Number [facility] CANCER Unless otherwise noted, [address] all lab tests performed by: Division of Pathology and Laboratory Medicine [address] [place], [place] [address] CMV Ab IgG+IgM Path Review (09/18/2020 2:25 PM CDT) CMV Panel ID Positive IgG with low IgM matute ggests previous infection. IVIG can give false positivity. [facility] High titers of IgG can give false negative IgM. Therefore, active disease is CANCER CENTER possible but less likely with this pattern. Reviewed and Electronically signed by Pathologist: JYOTI MCCALL MD #[id number] Comment: Test performed by an immunoa ssay intended for the qualitative detection of IgG and IgM antibodies to Cytomegalovirus (CMV) in human serum. When equivocal results are obtained, another specimen should be collected 10-14 days later. JYOTI MCCALL MD - [id number] Dictated by: JYOTI MCCALL MD - [id number] Dictated Date/Time: 09.22.19 16:16 PM CDT Transcribed Date/Time: 09.21.2020 16:16 PM CDT Electronically Signed By: ESTRELLITA MCCALL MD - [id number] on 09.21.2020 16:16 PM Specimen Blood Performing Organization Address [facility] Code Phon e Number [facility] CANCER Unless otherwise noted, [address] all lab tests performed by: Division of Pathology and Laboratory Medicine [address] [place], [place] [address]won [place] (ABNORMAL) CMV Ab IgG+IgM (09/18/2020 2:25 PM CDT) Pathologist Sig nature CMV IgM Int Negative Negative [facility] CMV IgG Int Positive (A) Negative [facility] Specimen Blood Performing Organization Address City/[facility] Phon e Number [facility] CANCER Unless otherwise noted, [address] all lab tests performed by: Division of Pathology and Laboratory Medicine [facility] Drummondwon Castellanod Peripheral Smear for Bone Marrow (09/18/2020 2:25 PM CDT) Pathologist Sig nature Peripheral Smear PSMEAR [facility] CANCER CE NTER Specimen Blood Performing Organization Address [facility] Phon e Number [facility] CANCER Unless otherwise noted, [address] all lab tests performed by: Division of Pathology and Laboratory Medicine [address] [place] [address] [place] (ABNORMAL) HTLV I/II Ab Confirmation Only (09/18/2020 2:25 PM CDT) HTLV I/II Positive (A) Negative [facility] Comment: [facility] REPORTABLE DISEASE. Confirmatory test is the definit rere test for HTLV-I/-II infection status. HTLV I/II See FootnoteComment: [facility] RESULT: Reactivity at [facility] p19-I/II, p24-I/II, gp46-I/II, gp21-I/II HTLV I/II HTLV-II [facility] Comment: [facility] ADDITIONAL INFORMATION ------ This test was developed and its performance characteri stics determined by [facility] in a manner consistent with CLIA requirements. This test has not been cleared or approv ed by the U.S. Food and Drug Administration. Test Performed by: [facility] [address] [place] [address] Automatic Pad Making Machine Operator: Alonso Neville M.D. Ph.D.; CLIA# [id number] Specimen Blood Performing Organization Address [facility] Phon e Number [facility] CANCER Unless otherwise noted, [address] all lab tests performed by: Division of Pathology and Laboratory Medicine [facility] [address] [place] (ABNORMAL) Transferrin with TIBC (09/18/2020 2:25 PM CDT) Pathologist Sig nature Transferrin 197 (L) 200 - 360 mg/dL [facility] TIBC 276 250 - 450 mcg/dL [facility] Specimen Blood Performing Organization Address City/State/ZIP Code Phon e Number [facility] CANCER Unless otherwise noted, [address] all lab tests performed by: Division of Pathology and Laboratory Medicine [facility] [place] Iron Level (09/18/2020 2:25 PM CDT) Pathologist [facility] nature Iron 59 59 - 158 mcg/dL [facility] CANCER [address] Specimen Blood Performing Organization Address City/[facility]/ZIP Code Phon e Number [facility] CANCER Unless otherwise noted, [address] all lab tests performed by: Division of Pathology and Laboratory Medicine [address] [place] [address] [place] (ABNORMAL) HTLV I/II Ab Screen with Confirm (09/18/2020 10:37 AM CDT) Pathologist [facility] HTLV I/II Ab Reactive (A) Negative [facility] Comment: CANCER CENTER Confirmatory test is ordered. Confirmatory test is t he definitive test for HTLV-I/-II infection status. Test Performed by: [facility] [place] [address] Automatic Pad Making Machine Operator: Alonso Neville M.D. Ph.D.; CLIA# [id number] Specimen Blood Performing Organization Address [facility] Phon e Number [facility] CANCER Unless otherwise noted, [address] all lab tests performed by: Division of Pathology and Laboratory Medicine [facility] [place] (ABNORMAL) Hepatitis C Virus Ab Screen, Reflex HCV PCR (09/18/2020 10:37 AM CDT)Only the most recent of2 resultswithin the time period is included. [facility] Reactive (A) Negative [facility] Comment: CANCER CENTER Supplemental testing for HCV RNA is ordered to rule ou t active HCV infection. Fryynz-gd-nwpnlb ratio is >=8.00. Test Performed by: [facility] [place] [address] Automatic Pad Making Machine Operator: Alonso Neville M.D. Ph.D.; CLIA# [id number] Specimen Blood Performing Organization Address City/[facility]/ZIP [facility] Phon e Number [facility] CANCER Unless otherwise noted, [address] all lab tests performed by: Division of Pathology and Laboratory Medicine [facility] [place] Echocardiogram 2D Complete (09/17/2020 4:14 PM CDT) [...] imaginD volumes were not performed in this [facility]. Cardiac Mechanics/Speckle Tracking Imagi ng: Speckle tracking [...] volumes were not performed in this [facility]. Cardiac Mechanics/Speckle Tracking Imagi ng: Speckle tracking [...] Confirm ABORh (09/17/2020 2:16 PM CDT) Pathologist Sig nature ABORh Confirm. A POS [facility] CANCER [facility] ER Specimen Blood Performing Organization Address City/State/ZIP Code Phon e Number [facility] Unless otherwise noted, [place], [place] [id number] [place] [address] all lab tests performed by: Division of Pathology and Laboratory Medicine [address] [place] [address] Influenza A/B + COVID-19 Asymptomatic- L (09/17/2020 1:42 PM CDT) COVID19 Not Detected Not Detected [facility] (SARS-CoV-2) [facility] Influenza A Not Detected Not Detected [facility] Influenza B Not Detected Not Detected [facility] COVID19 SARS Inpatient Admission [facility] Indication [facility] Inf AB+Cov19 See Note [facility] Comment Comment: [facility] The melissa SARS-CoV-2 & Influ [...] fact sheet for patients provided by the named account executive ([employer]) can be reviewed at: https://www.[employer]T [employer]gov/media/811421/download A fact sheet for Health Care providers is provided by the named account executive ([employer]) and can be reviewed at: https://www.IMT ([employer]gov/media/224621/download Influenza A and Influenza B negative results [...] and high-complexity tests. The Microbiology Laboratory at [facility] [place], CLIA Accreditation # [id number] and CAP Accreditation #[id number], verified the performance characteristics of this assay. Internal controls are used to monitor all stages of the test process. Specimen Nasopharyngeal Swab Performing Organization Address City/State/ZIP Code Phon e Number [facility] CANCER Unless otherwise noted, [place], [place] [id number] [place] [address] all lab tests performed by: Division of Pathology and Laboratory Medicine [facility] [address] PETCT Initial Treatment Strategy (09/16/2020 11:58 AM [...] of d iffuse large B-cell lymphoma. 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 Narrative [id number] - 09/16/2020 3:18 PM CDT FULL RESULT: [...] Organization Address City/State/ZIP Code Phon e Number [id number] US Fine Needle Aspiration (09/10/2020 2:51 PM CDT) Specimen Impressions [id number] - 09/10/2020 4:28 PM CDT 1. Right mid and superior neck enlarged nodes with hilar architecture measuring up to 4.8 cm. 1.5 cm enlarged left superior neck node. 2. 11.5 cm left neck mass adherent to the left sternocleidomastoid muscle. Fine-needle aspiration showed crushed cells so core biopsy was performed. Narrative [id number] - 09/10/2020 4:28 PM CDT FULL RESULT: [...] with 18-gauge by 2 cm throw coaxial [employer] core biopsy system was used to make [...] Organization Address City/State/ZIP Code Phon e Number [id number] US HEAD NECK SOFT TISSUE (09/10/2020 2:51 PM CDT) Specimen Impressions [id number] - 09/10/2020 4:28 PM CDT 1. Right mid and superior neck enlarged nodes with hilar architecture measuring up to 4.8 cm. 1.5 cm enlarged left superior neck node. 2. 11.5 cm left neck mass adherent to the left sternocleidomastoid muscle. Fine-needle aspiration showed crushed cells so core biopsy was performed. Narrative [id number] - 09/10/2020 4:28 PM CDT FULL RESULT: [...] with 18-gauge by 2 cm throw coaxial Fotechno core biopsy system was used to make [...] with 18-gauge by 2 cm throw coaxial Fotechno core biopsy system was used to make [...] Organization Address City/State/ZIP Code Phon e Number [id number] Soft Tissue Core Needle Biopsy (09/10/2020 2:51 PM CDT) Specimen Impressions [id number] - 09/10/2020 4:28 PM CDT 1. Right mid and superior neck enlarged nodes with hilar architecture measuring up to 4.8 cm. 1.5 cm enlarged left superior neck node. 2. 11.5 cm left neck mass adherent to the left sternocleidomastoid muscle. Fine-needle aspiration showed crushed cells so core biopsy was performed. Narrative [id number] - 09/10/2020 4:28 PM CDT FULL RESULT: [...] with 18-gauge by 2 cm throw coaxial Fotechno core biopsy system was used to make [...] with 18-gauge by 2 cm throw coaxial Fotechno core biopsy system was used to make [...] Organization Address City/State/ZIP Code Phon e Number [id number] Pathology Biopsy Interpretation (09/10/2020 1:52 PM CDT) Submitted Mass of neck [R22.1] [facility] Clinical History Diagnosis Neck mass, left, core biopsies: [facility] GERONIMO BS Electronically signed by Nimo DIFFUSE LARGE [...] phenotype, a ccording to the method of Jung ns et al. (Blood. 2003;103(1);275-82) . Fluorescence in situ hybridization for rearrangements involving MYC, BCL2 and BCL6 are underway; the results will be reported separately and the diagnosis revised if needed. Gross Description A: [facility] Neck, left, left neck mass a pprox = 11.5 x 9.0 cm: 4 cores of pink soft tissue that aggregate to 1.7 x 0.6 x 0.1 cm, entirely submitted in A1. KR Disclaimer "Some tests reported here [facility] may have been developed and performance characteristics determined by [facility]. These tests have not been specifically cleared or approved by the U.S. Food and Drug Administration. If applicable, controls were reviewed and showed appropriate reactivity." Specimen Tissue - Neck, Left Performing Organization Address City/[facility]/ZIP Code Phon e Number [facility] [place] [address] [address] (ABNORMAL) Cytology Image-Guided FNA Interpretation (09/10/2020 12:14 PM CDT) Gross Description A: [facility] Specimens procured: 2 Diff Quik; 8 Pap Stain Slides 10 ml, clear pink fluid in RPMI 1 Cytospin Size: 11.5 x 9 cm Immediate assessment for specimen adequacy was made x1 by Dr. Carpenter. Immediate Assessment Borderline [facility] cellularity, further review needed, additional tissue recommended Major Classification Indeterminate (A) [facility] El ectronically signed by Sugey Carpenter MD on 09/10/2020 at 4 :22 PM Diagnosis A. Soft tissue, left neck, fine needle aspiration: [facility] Electronically signed by Sugey Correa Rare atypical degenerated ce lls in a background of necrosis and crushed lymphoid tissue (see comment) MD Jayden on 09/10/2020 at 4 :22 PM Comment The paucity of viable [facility] tissue and poor cell preservation preclude a more definitive diagnosis. Please see this patient's concurrently acquired core needle biopsy ([id number]) for further evaluation. Retained/Biomarker SR: 11 S [facility] Testing Informational Points Some tests reported [facility] here may have been developed and performance characteristics determined by [facility]. These tests have not been specifically cleared or approved by the U.S. Food and Drug Administration. Specimen Fine Needle Asp - Neck, Left Performing Organization Address City/[facility]/ZIP Code Phon e Number [facility] [place] [address] [address] MYC IGH CEP8 FISH Interpretation and Report (09/10/2020 11:53 AM CDT) Specimen Narrative This result has an attachment that is no t available. Cytogenetics Specimen Collection -FFPE (09/10/2020 11:53 AM CDT)Only the most recent of2 resultswithin the time period is included. [place] Ap Link [id number] [facility] Comment: [facility] Collection date/time has bee n modified to: 11:53:00. Previous collection date/time: 11:53:00. Corrected from [id number] [NA] on 09/21/20 12:21:01 CD T by Loly Mckeon. Cytogenetics Yes [facility] (Received) Comment: CANCER CENTER Collection date/time has bee n modified to: 11:53:00. Previous collection date/time: 11:53:00. Corrected from Yes [NA] on 09/21/20 12:21:01 CDT by Loly Benson. Specimen FFPE Performing Organization Address City/[facility] Phon e Number [facility] CANCER Unless otherwise noted, [address] all lab tests performed by: Division of Pathology and Laboratory Medicine [address] IGH/BCL2 T(14;18) TISSUE FISH INTERPRETATION AND [...] Virus Ab (09/09/2020 11:05 AM CDT) Pathologist [place] HCVAb Received See NoteComment: [facility] HCVAb was sent to a CANCER CENTER reference lab for testing. Expect results on Hepatitis C Virus Ab Screen w/Reflex HCV PCR within 96 hours. Specimen Blood Performing Organization Address [facility] Phon e Number [facility] CANCER Unless otherwise noted, [address] all lab tests performed by: Division of Pathology and Laboratory Medicine [address] (ABNORMAL) Hemoglobin A1c (09/09/2020 11:05 AM CDT) Pathologist [place] A1C 6.3 (H) 4.3 - 5.6 % [facility] Comment: HbA1c values >=6.5% are diagnostic of diabetes mellitu s. Diagnosis should be confirmed by repeat testing. Therapeutic Action suggested: >8.0% HbA1c; Goal of therapy: <7.0% HbA1c Testing performed at [facility], [address] [place] [address], [place] [address] Specimen Blood Performing Organization Address City/State/ZIP Code Phon e Number KAIBETO MD [facility] [place] [address] [address] [facility] after 04/26/2020 Insurance Payer Benefit Plan / Subscriber ID Effective Dates Phone Addre ss Type Group HUMANA HUMANA CHOICE [id number] 2020-Presen [address] [address] Medicare [place] [address] Advance Directives Type Date Recorded 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 on Advance Directives: 11/02/2020 12:00 AM Medical Po wer of Medical Power of Dredge 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
[2021-04-26 14:37] VITALS: BMI 30.1
--- OUTSIDE RECORDS SUMMARY | 2021-04-26 14:41 | XMS REPORT | Continuity of Care Document ---
:1950 Author Organization [facility] t Address [address] [place] [address] Care Team Providers Name Role Phone [phone] Primary Care Physician Unavailable [id number] Attending Clinician Unavailable Angelika Veliz Attending Clinician Unavailable ANGELES Attending Clinician Unavailable Missael TORIBIO Attending Clinician Unavailable HAYDEN Attending Clinician Unavailable SYSTEM, NOT IN Attending Clinician Unavailable KEIKO Attending Clinician Unavailable Spencer Rai Attending Clinician MEGHAN Attending Clinician Unavailable Meghan JIMENEZ Attending Clinician Marcial JIMENEZ Attending Clinician Sarah LOVE Attending Clinician SARAH Attending Clinician Unavailable Mulugeta MIXON G Attending Clinician Unavailable Angelic Marquez Attending Clinician Cj MIXON C Attending Clinician Unavailable FATMATA Attending Clinician Unavailable Fatmata LOVE Attending Clinician Jesika LOVE Attending Clinician Milton LOVE Attending Clinician Lit MIXON, Robert Attending Clinician Unavailable ALEX, Juan Attending Clinician Unavailable Alex LOVE, Juan Attending Clinician Phong MIXON, Y Attending Clinician Unavailable SPENCER BLACKMON Attending Clinician Unavailable Herber LOVE PhD, [facility] Attending Clinician Elliott DUNN Attending Clinician Unavailable Junior Jarrett MD Attending Clinician Dionna LOVE, Elliott Attending Clinician Vivien LOVE, Atilio Attending Clinician Lavonne LOVE Attending Clinician Hayden LOVE PhD Attending Clinician Estefania Borjas MD, Elliott Attending Clinician Luciano RIVERA Attending Clinician Stefanie Spain Attending Clinician Flash Shah Attending Clinician Galileo MACHINERY CLEANER, R Attending Clinician Conrad RT, L Attending Clinician Unavailable Breezy LOVE Attending Clinician Yue ALEX Attending Clinician STANFORD Attending Clinician Unavailable Francisca HERNANDEZ Attending Clinician Malini LOVE Attending Clinician Unavailable Nas BLANKENSHIP, E Attending Clinician Stanford BLANKENSHIP Attending Clinician Elliott PAYNE Attending Clinician Unavailable AMANDA Attending Clinician Unavailable FANG Attending Clinician Unavailable Peter Mensah Attending Clinician FIDENCIO Attending Clinician Unavailable ACRLOS Attending Clinician Unavailable Bryan RN, L Attending Clinician Unavailable CEM Attending Clinician Unavailable Cem BLANKENSHIP Attending Clinician BETH Attending Clinician Unavailable Peter Alfaro MD Attending Clinician Tony Angulo Attending Clinician Peter ALFARO JR Attending Clinician Unavailable TONY MAYS [...] Clinician Doctor Unassigned, Name Attending Clinician Unavailable [id number] Admitting Clinician Unavailable ANGELES Admitting Clinician Unavailable Missael TORIBIO Admitting Clinician Unavailable KEIKO Admitting Clinician Unavailable Elliott PAYNE Admitting Clinician Unavailable SARAH Admitting Clinician Unavailable Payers Payer Name Policy Type Policy Number Effective Date Expiration Date S ource [employer] CHOICE [id number] 2020 MEDICARE PPO 00:00:00 [employer] MEDICARE ADV [id number] 2020 00:00:00 [facility] [id number] 2016 MEDICARE GOLD 00:00:00 Problems Condition Condition Condition Status Onset Resolution Last Treating Co mments Source Name Details Category Date Date Treatment Clinician Date Paroxysmal Paroxysmal Disease Active 2020-03 Last M D atrial atrial 2-21 Assessmen Anderso fibrillati fibrillati 00:00: t & Plan: n on on 00 Formattin g of this note might be [...] 00 shock shock Bilateral Bilateral Disease Active MD pneumonia pneumonia 09-29 Jay rso 00:00: n 00 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 09-29 Jay r[place] neoplastic neoplastic 00:00: n disease disease 00 Acute Acute Disease Active respirator respirator 09-29 An derso y failure y failure 00:00: n with with 00 hypoxia hypoxia Chronic Chronic Disease Active obstructiv obstructiv 6-23 An derso e e 00:00: n pulmonary pulmonary 00 disease disease 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 6-23 An derso [...] 1-24 it y of after after 00:00: [place] surgery surgery 00 Medical Branch Wound Wound Disease Active Univers cellulitis cellulitis 1-24 it y of after after 00:00: [place] surgery surgery 00 Medical Branch Coronary Coronary Disease Active 2016-03 Unive rs artery artery 2-13 ity of disease disease 00:00: [place] involving involving 00 Medi [facility] [place] Branch coronary coronary artery of artery of [place] heart heart without without angina angina pectoris [...] 00:00: [place] involving involving 00 Medi [facility] [place] Branch coronary coronary artery of artery of [place] heart heart without without angina angina pectoris pectoris 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 2-11 it y of t status t status 00:00: [place] 00 Medical Branch ACUTE Diagnosis Active 2016-07-19 Mem [facility]ria CHEST PAIN 3-22 21:59:00 l ACUTE 00:00: [place] CHEST PAIN 00 Active 06/15/2016 [facility] NSTEMI Diagnosis Active 2016-06-15 Mem oria 3-22 11:09:00 l NSTEMI 00:00: [place] 00 Active 06/15/2016 [facility] Bloodstrea Bloodstrea Disease Active M D [...] elsewhere classified classified Hepatitis Hepatitis Disease Active 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 Jay rso n History of History of Disease Active M D hepatitis hepatitis Jay rso C C n Long-term Long-term Disease Active MD current current Anderso use of use of n rituximab rituximab Patient Patient Disease Active MD immunocomp immunocomp An derso romised romised n Acute Acute Disease Active MD injury of injury of Jay rso kidney kidney n Hyperurice Hyperurice Disease Active M D damien damien Anderso n 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 Assessmen Andcharles forbes heart d [...] Soumya nn D PAIN, UNSPECIFIE D Active [facility] Metastasis Metastasis Disease Resolve 2020-09-16 2020-09-16 to lymph to lymph d 09-07 00:00:00 16:46:22 An derso node from node from 00:00: n 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 Mild Problem Resolve 2018-08-06 2018-08-06 Memoria chronic d 03-27 13:34:33 13:34:33 l obstructiv Mild 00:00: Rafat n e chronic 00 pulmonary obstructiv disease e (disorder) pulmonary disease (disorder) Resolved 03/27/2012 Problem 08/06/2018 [facility] Allergies, Adverse Reactions, Alerts Allergy Allergy Status Severity Reaction(s) Onset Inactive Treating Comm ents Source Name Type Date Date Clinician Povidone Propensi Active Hives Univer s -Iodine ty to 4-13 ity of adverse 00:00: [place] reaction 00 Medical s Branch POVIDONE DRUG Active Hives Univers -IODINE INGREDI 4-13 ity of 00:00: [place] 00 Medical Branch Betadine Betadine Active Mo [place] NO KNOWN Allergy Active [facility] Social History Social Habit Start Date [...] in 2007 Univers ity of 00:00:00 00:00:00 [facility] Sex Assigned At [birth year] [...] Hepatitis B .5mg Take 1 MD (BARACLUDE) 6-29 08-20 carrier tablet An derso 0.5 mg [...] Diffuse 5mg Take 1 M D azine 09-21 high grade tablet (5 And erso (Compazine) [...] traMADol Yes TAKE 1 MD (ULTRAM) 50 6- TABLET BY And erso mg tablet 00:00: [...] carvedilol 2020- No TAKE 1 MD (COREG) 08-12- TABLET BY Herman niecy 6.25 mg 00:00: 00:00 MOUTH n tablet [...] :00 TK 1 T PO D levocetiriz 2020-0 Yes 5mg Take 5 mg M D [...] n capsule 00 :00 AND CONGESTION dicyclomine 2020- No TAKE 1 T M D (BENTYL) 20 10-04- PO Q 6 H And erso mg tablet 00:00: 00:00 PRN n 00 :00 tiotropium 2020-0 Yes [id number] 18ug Inhale 1 Univers (SPIRIVA 4-16 capsule ity of WITH 00:00: daily. [place] HANDIHALER) 00 Medical 18 mcg Branch inhalation tiotropium 2020-0 Yes [id number] 18ug Inhale 1 Univers (SPIRIVA 4-16 capsule ity of WITH 00:00: daily. [place] HAND[place] 00 Medical 18 mcg Branch inhalation tiotropium 2020-0 Yes [id number] 18ug Inhale 1 Univers (SPIRIVA 4-16 capsule ity of WITH 00:00: daily. [place] HAND[place]) 00 Medical 18 mcg Branch inhalation tiotropium 2020-0 Yes [id number] 18ug Inhale 1 Univers (SPIRIVA 4-16 capsule ity of WITH 00:00: daily. [place] HAND[place]) 00 Medical 18 mcg Branch inhalation tiotropium 2020-0 Yes [id number] 18ug Inhale 1 Univers (SPIRIVA 4-16 capsule ity of WITH 00:00: daily. [place] HAND[place]) 00 Medical 18 mcg Branch inhalation tiotropium 2020-0 Yes [id number] 18ug Inhale 1 Univers (SPIRIVA 4-16 capsule ity of WITH 00:00: daily. [place] HAND[place]) 00 Medical 18 mcg Branch inhalation pantoprazol 2020-0 Yes [id number] 40mg Take 1 Univers e 1-30 tablet by ity of (PROTONIX) 00:00: mouth [place] 40 mg EC 00 daily. Medical tablet Branch pantoprazol 2020-0 Yes [id number] 40mg Take 1 Univers e 1-30 tablet by ity of (PROTONIX) 00:00: mouth [place] 40 mg EC 00 daily. Medical tablet Branch pantoprazol 2020-0 Yes [id number] 40mg Take 1 Univers e 1-30 tablet by ity of (PROTONIX) 00:00: mouth [place] 40 mg EC 00 daily. Medical tablet Branch fluticasone 2020-0 Yes 2{spray Use 2 Un osvaldo propionate 1-30 } Sprays in ity of 50 00:00: each [place] mcg/actuati 00 nostril Medic al on nasal daily. Branch spray pantoprazol 2020-0 Yes [id number] 40mg Take 1 Univers e 1-30 tablet by ity of (PROTONIX) 00:00: mouth [place] 40 mg EC 00 daily. Medical tablet Branch fluticasone 2020-0 Yes 2{spray Use 2 Un osvaldo propionate 1-30 } Sprays in ity of 50 00:00: each [place] mcg/actuati 00 nostril Medic al on nasal daily. Branch spray pantoprazol 2020-0 Yes [id number] 40mg Take 1 Univers e 1-30 tablet by ity of (PROTONIX) 00:00: mouth [place] 40 mg EC 00 daily. Medical tablet Branch fluticasone 2020-0 Yes 2{spray Use 2 Un osvaldo propionate 1-30 } Sprays in ity of 50 00:00: each [place] mcg/actuati 00 nostril Medic al on nasal daily. Branch spray pantoprazol 2020-0 Yes [id number] 40mg Take 1 Univers e 1-30 tablet by ity of (PROTONIX) 00:00: mouth [place] 40 mg EC 00 daily. Medical tablet Branch fluticasone 2020-0 Yes 2{spray Use 2 Un osvaldo propionate 1-30 } Sprays in ity of 50 00:00: each [place] mcg/actuati 00 nostril Medic al on nasal daily. Branch spray pantoprazol 2020-0 Yes [id number] 40mg Take 1 Univers e 1-30 tablet by ity of (PROTONIX) 00:00: mouth [place] 40 mg EC 00 daily. Medical tablet Branch fluticasone 2020-0 Yes 2{spray Use 2 Un osvaldo propionate 1-30 } Sprays in ity of 50 00:00: each [place] mcg/actuati 00 nostril Medic al on nasal daily. Branch spray pantoprazol 2020-0 Yes [id number] 40mg Take 1 Univers e 1-30 tablet by ity of (PROTONIX) 00:00: mouth [place] 40 mg EC 00 daily. Medical tablet Branch fluticasone 2020-0 Yes 2{spray Use 2 Un osvaldo propionate 1-30 } Sprays in ity of 50 00:00: each [place] mcg/actuati 00 nostril Medic al on nasal daily. Branch spray pantoprazol 2020-0 Yes [id number] 40mg Take 1 Univers e 1-30 tablet by ity of (PROTONIX) 00:00: mouth [place] 40 mg EC 00 daily. Medical tablet Branch fluticasone 2020-0 Yes 2{spray Use 2 Un osvaldo propionate 1-30 } Sprays in ity of 50 00:00: each [place] mcg/actuati 00 nostril Medic al on nasal daily. Branch spray fluticasone 2019-0 Yes [id number] 1{puff} Inhale 1 Univers -salmeterol 5-23 Puff every it y of (ADVAIR 00:00: 12 [place] DISKUS) 00 (twelve) Medical 250-50 hours. Branch mcg/dose inhalation disk fluticasone 2019-0 Yes [id number] 1{puff} Inhale 1 Univers -salmeterol 5-23 Puff every it y of (ADVAIR 00:00: 12 [place] DISKUS) 00 (twelve) Medical 250-50 hours. Branch mcg/dose inhalation disk fluticasone 2019-0 Yes [id number] 1{puff} Inhale 1 Univers -salmeterol 5-23 Puff every it y of (ADVAIR 00:00: 12 [place] DISKUS) 00 (twelve) Medical 250-50 hours. Branch mcg/dose inhalation disk fluticasone 2019-0 Yes [id number] 1{puff} Inhale 1 Univers -salmeterol 5-23 Puff every it y of (ADVAIR 00:00: 12 [place] DISKUS) 00 (twelve) Medical 250-50 hours. Branch mcg/dose inhalation disk fluticasone 2019-0 Yes [id number] 1{puff} Inhale 1 Univers -salmeterol 5-23 Puff every it y of (ADVAIR 00:00: 12 [place] DISKUS) 00 (twelve) Medical 250-50 hours. Branch mcg/dose inhalation disk fluticasone 2019-0 Yes [id number] 1{puff} Inhale 1 Univers -salmeterol 5-23 Puff every it y of (ADVAIR 00:00: 12 [place] DISKUS) 00 (twelve) Medical 250-50 hours. Branch mcg/dose inhalation disk fluticasone 2019-0 Yes [id number] 1{puff} Inhale 1 Univers -salmeterol 5-23 Puff every it y of (ADVAIR 00:00: 12 [place] DISKUS) 00 (twelve) Medical 250-50 hours. Branch mcg/dose inhalation disk fluticasone 2019-0 Yes [id number] 1{puff} Inhale 1 Univers -salmeterol 5-23 Puff every it y of (ADVAIR 00:00: 12 [place] DISKUS) 00 (twelve) Medical 250-50 hours. Branch mcg/dose inhalation disk fluticasone 2019-0 Yes [id number] 1{puff} Inhale 1 Univers -salmeterol 5-23 Puff every it y of (ADVAIR 00:00: 12 [place] DISKUS) 00 (twelve) Medical 250-50 hours. Branch mcg/dose inhalation disk fluticasone 2019-0 Yes [id number] 1{puff} Inhale 1 Univers -salmeterol 5-23 Puff every it y of (ADVAIR 00:00: 12 [place] DISKUS) 00 (twelve) Medical 250-50 hours. Branch mcg/dose inhalation disk fluticasone 2019-0 Yes [id number] 1{puff} Inhale 1 Univers -salmeterol 5-23 Puff every it y of (ADVAIR 00:00: 12 [place] DISKUS) 00 (twelve) Medical 250-50 hours. Branch mcg/dose inhalation disk fluticasone 2019-0 Yes [id number] 1{puff} Inhale 1 Univers -salmeterol 5-23 Puff every it y of (ADVAIR 00:00: 12 [place] DISKUS) 00 (twelve) Medical 250-50 hours. Branch mcg/dose inhalation disk fluticasone 2019-0 Yes [id number] 1{puff} Inhale 1 Univers -salmeterol 5-23 Puff every it y of (ADVAIR 00:00: 12 [place] DISKUS) 00 (twelve) Medical 250-50 hours. Branch mcg/dose inhalation disk fluticasone 2019-0 Yes [id number] 1{puff} Inhale 1 Univers -salmeterol 5-23 Puff every it y of (ADVAIR 00:00: 12 [place] DISKUS) 00 (twelve) Medical 250-50 hours. Branch mcg/dose inhalation disk fluticasone 2019-0 Yes [id number] 1{puff} Inhale 1 Univers -salmeterol 5-23 Puff every it y of (ADVAIR 00:00: 12 [place] DISKUS) 00 (twelve) Medical 250-50 hours. Branch mcg/dose inhalation disk fluticasone 2019- Yes [id number] 1{puff} Inhale 1 Univers -salmeterol 5-23 Puff every it y of (ADVAIR 00:00: 12 [place] DISKUS) 00 (twelve) Medical 250-50 hours. Branch mcg/dose inhalation disk clopidogrel 2017 Yes TK 1 T PO U nivers 75 mg 0-11 QD ity of tablet 00:00: [place] 00 [facility] clopidogrel 2017- Yes TK 1 T PO U nivers 75 mg 0-11 QD ity of tablet 00:00: [place] 00 [facility] clopidogrel 2017- Yes TK 1 T PO U nivers 75 mg 0-11 QD ity of tablet 00:00: [place] 00 [facility] clopidogrel 2017- Yes TK 1 T PO U nivers 75 mg 0-11 QD ity of tablet 00:00: [place] [facility] clopidogrel 2017- Yes TK 1 T PO U nivers 75 mg 0-11 QD ity of tablet 00:00: [place] 00 [facility] clopidogrel 2017- Yes TK 1 T PO U nivers 75 mg 0-11 QD ity of tablet 00:00: [place] 00 [facility] clopidogrel 2017- Yes TK 1 T PO U nivers 75 mg 0-11 QD ity of tablet 00:00: [place] [facility] clopidogrel 2017- Yes TK 1 T PO U nivers 75 mg 0-11 QD ity of tablet 00:00: [place] 00 [facility] clopidogrel 2017- Yes TK 1 T PO U nivers 75 mg 0-11 QD ity of tablet 00:00: [place] [facility] clopidogrel 2017 Yes TK 1 T PO U nivers 75 mg 0-11 QD ity of tablet 00:00: [place] [facility] clopidogrel 2017- Yes TK 1 T PO U nivers 75 mg 0-11 QD ity of tablet 00:00: [place] [facility] clopidogrel 2016-03 Yes TK 1 T PO U nivers 75 mg 0-11 QD ity of tablet 00:00: [place] [facility] clopidogrel 2017 Yes TK 1 T PO U nivers 75 mg 0-11 QD ity of tablet 00:00: [place] [facility] clopidogrel 2016-03 Yes TK 1 T PO U nivers 75 mg 0-11 QD ity of tablet 00:00: [place] [facility] clopidogrel 2017 Yes TK 1 T PO U nivers 75 mg 0-11 QD ity of tablet 00:00: [place] [facility] clopidogrel 2017 Yes TK 1 T PO U nivers 75 mg 0-11 QD ity of tablet 00:00: [place] [facility] aspirin 81 2017 Yes TK 1 T PO Un osvaldo mg EC 9-29 D ity of tablet 00:00: [place] [facility] aspirin 81 2017- Yes TK 1 T PO Un osvaldo mg EC 9-29 D ity of tablet 00:00: [place] [facility] aspirin 81 2017- Yes TK 1 T PO Un osvaldo mg EC 9-29 D ity of tablet 00:00: [place] [facility] Branch aspirin 81 2017-0 Yes TK 1 T PO Un osvaldo mg EC 9-29 D ity of tablet 00:00: [place] [facility] aspirin 81 2017-0 Yes TK 1 T PO Un osvaldo mg EC 9-29 D ity of tablet 00:00: [place] [facility] Branch aspirin 81 2017-0 Yes TK 1 T PO Un osvaldo mg EC 9-29 D ity of tablet 00:00: [place] [facility] Branch aspirin 81 2017-0 Yes TK 1 T PO Un osvaldo mg EC 9-29 D ity of tablet 00:00: [place] [facility] Branch aspirin 81 2017-0 Yes TK 1 T PO Un osvaldo mg EC 9-29 D ity of tablet 00:00: [place] [facility] Branch aspirin 81 2017-0 Yes TK 1 T PO Un osvaldo mg EC 9-29 D ity of tablet 00:00: [place] [facility] Branch aspirin 81 2017-0 Yes TK 1 T PO Un osvaldo mg EC 12-23 D ity of tablet 00:00: [place] [facility] aspirin 81 2017 Yes TK 1 T PO Un osvaldo mg EC 12-23 D ity of tablet 00:00: [place] [facility] aspirin 81 2017 Yes TK 1 T PO Un osvaldo mg EC 12-23 D ity of tablet 00:00: [place] [facility] aspirin 81 2017 Yes TK 1 T PO Un osvaldo mg EC 12-23 D ity of tablet 00:00: [place] [facility] aspirin 81 2017 Yes TK 1 T PO Un osvaldo mg EC 12-23 D ity of tablet 00:00: [place] [facility] aspirin 81 2017 Yes TK 1 T PO Un osvaldo mg EC 12-23 D ity of tablet 00:00: [place] [facility] aspirin 81 2017 Yes TK 1 T PO Un osvaldo mg EC 12-23 D ity of tablet 00:00: [place] [facility] traMADOL 50 Yes TK 1 T PO U nivers mg tablet 8-18 TID PRN ity of 00:00: [place] [facility] traMADOL 50 Yes TK 1 T PO U nivers mg tablet 8-18 TID PRN ity of 00:00: [place] [facility] traMADOL 50 Yes TK 1 T PO U nivers mg tablet 8-18 TID PRN ity of 00:00: [place] [facility] traMADOL 50 Yes TK 1 T PO U nivers mg tablet 8-18 TID PRN ity of 00:00: [place] [facility] traMADOL 50 Yes TK 1 T PO U nivers mg tablet 8-18 TID PRN ity of 00:00: [place] [facility] traMADOL 50 Yes TK 1 T PO U nivers mg tablet 8-18 TID PRN ity of 00:00: [place] [facility] traMADOL 50 Yes TK 1 T PO U nivers mg tablet 8-18 TID PRN ity of 00:00: [place] [facility] traMADOL 50 Yes TK 1 T PO U nivers mg tablet 8-18 TID PRN ity of 00:00: [place] [facility] traMADOL 50 Yes TK 1 T PO U nivers mg tablet 8-18 TID PRN ity of 00:00: [place] [facility] traMADOL 50 Yes TK 1 T PO U nivers mg tablet 8-18 TID PRN ity of 00:00: [place] [facility] traMADOL 50 Yes TK 1 T PO U nivers mg tablet 8-18 TID PRN ity of 00:00: [place] [facility] traMADOL 50 Yes TK 1 T PO U nivers mg tablet 8-18 TID PRN ity of 00:00: [place] [facility] traMADOL 50 Yes TK 1 T PO U nivers mg tablet 8-18 TID PRN ity of 00:00: [place] [facility] traMADOL 50 Yes TK 1 T PO U nivers mg tablet 8-18 TID PRN ity of 00:00: [place] [facility] traMADOL 50 Yes TK 1 T PO U nivers mg tablet 8-18 TID PRN ity of 00:00: [place] [facility] traMADOL 50 Yes TK 1 T PO U nivers mg tablet 8-18 TID PRN ity of 00:00: [place] [facility] metoprolol Yes TK 1 T PO Un osvaldo succinate 8-09 QD ity of XL 25 mg 24 00:00: [place] hr tablet Medical [place] torsemide Yes 10mg Take 10 mg Un osvaldo 10 mg 8-09 by mouth ity of tablet 00:00: daily. [place] [facility] atorvastati Yes TK 1 T PO U nivers n 40 mg 8-09 QD ity of tablet 00:00: [place] [facility] metoprolol Yes TK 1 T PO Un osvaldo succinate 8-09 QD ity of XL 25 mg 24 00:00: [place] hr tablet Medical Branch torsemide Yes 10mg Take 10 mg Un osvaldo 10 mg 8-09 by mouth ity of tablet 00:00: daily. [place] [facility] atorvastati Yes TK 1 T PO U nivers n 40 mg 8-09 QD ity of tablet 00:00: [place] [facility] metoprolol Yes TK 1 T PO Un osvaldo succinate 8-09 QD ity of XL 25 mg 24 00:00: [place] hr tablet Medical Branch torsemide 2017 Yes 10mg Take 10 mg Un osvaldo 10 mg 8-09 by mouth ity of tablet 00:00: daily. [facility] atorvastati 2017 Yes TK 1 T PO U nivers n 40 mg 8-09 QD ity of tablet 00:00: [facility] metoprolol 2017 Yes TK 1 T PO Un osvaldo succinate 8-09 QD ity of XL 25 mg 24 00:00: [place] hr tablet [facility] torsemide [id number] Yes 10mg Take 10 mg Un osvaldo 10 mg 8-09 by mouth ity of tablet 00:00: daily. [facility] atorvastati 2017 Yes TK 1 T PO U nivers n 40 mg 8-09 QD ity of tablet 00:00: [facility] metoprolol 2017 Yes TK 1 T PO Un osvaldo succinate 8-09 QD ity of XL 25 mg 24 00:00: [place] hr tablet [facility] torsemide 2017 Yes 10mg Take 10 mg Un osvaldo 10 mg 8-09 by mouth ity of tablet 00:00: daily. [facility] atorvastati Yes TK 1 T PO U nivers n 40 mg 8-09 QD ity of tablet 00:00: [facility] metoprolol 2017 Yes TK 1 T PO Un osvaldo succinate 8-09 QD ity of XL 25 mg 24 00:00: [place] tablet [facility] torsemide Yes 10mg Take 10 mg Un osvaldo 10 mg 8-09 by mouth ity of tablet 00:00: daily. [facility] atorvastati [id number] Yes TK 1 T PO U nivers n 40 mg 8-09 QD ity of tablet 00:00: [facility] metoprolol 2017 Yes TK 1 T PO Un osvaldo succinate 8-09 QD ity of XL 25 mg 24 00:00: [place] hr tablet [facility] torsemide [id number] Yes 10mg Take 10 mg Un osvaldo 10 mg 8-09 by mouth ity of tablet 00:00: daily. [facility] atorvastati Yes TK 1 T PO U nivers n 40 mg 8-09 QD ity of tablet 00:00: [facility] atorvastati 2017-0 Yes TK 1 T PO U nivers n 40 mg 8-09 QD ity of tablet 00:00: [place] [facility] metoprolol 2017 Yes TK 1 T PO Un osvaldo succinate 8-09 QD ity of XL 25 mg 24 00:00: [place] hr tablet [facility] torsemide Yes 10mg Take 10 mg Un osvaldo 10 mg 8-09 by mouth ity of tablet 00:00: daily. [facility] atorvastati Yes TK 1 T PO U nivers n 40 mg 8-09 QD ity of tablet 00:00: [facility] metoprolol Yes TK 1 T PO Un osvaldo succinate 8-09 QD ity of XL 25 mg 24 00:00: [place] hr tablet [facility] torsemide Yes 10mg Take 10 mg Un osvaldo 10 mg 8-09 by mouth ity of tablet 00:00: daily. [facility] metoprolol Yes TK 1 T PO Un osvaldo succinate 8-09 QD ity of XL 25 mg 24 00:00: [place] hr tablet [facility] atorvastati Yes TK 1 T PO U nivers n 40 mg 8-09 QD ity of tablet 00:00: [facility] metoprolol Yes TK 1 T PO Un osvaldo succinate 8-09 QD ity of XL 25 mg 24 00:00: [place] hr tablet [facility] torsemide Yes 10mg Take 10 mg Un osvaldo 10 mg 8-09 by mouth ity of tablet 00:00: daily. [facility] torsemide Yes 10mg Take 10 mg Un osvaldo 10 mg 8-09 by mouth ity of tablet 00:00: daily. [facility] atorvastati Yes TK 1 T PO U nivers n 40 mg 8-09 QD ity of tablet 00:00: [facility] metoprolol Yes TK 1 T PO Un osvaldo succinate 8-09 QD ity of XL 25 mg 24 00:00: [place] hr tablet [facility] torsemide Yes 10mg Take 10 mg Un osvaldo 10 mg 8-09 by mouth ity of tablet 00:00: daily. [facility] atorvastati Yes TK 1 T PO U nivers n 40 mg 8-09 QD ity of tablet 00:00: [facility] metoprolol 2017 Yes TK 1 T PO Un osvaldo succinate 8-09 QD ity of XL 25 mg 24 00:00: [place] hr tablet [facility] torsemide 2017 Yes 10mg Take 10 mg Un osvaldo 10 mg 8-09 by mouth ity of tablet 00:00: daily. [facility] atorvastati Yes TK 1 T PO U nivers n 40 mg 8-09 QD ity of tablet 00:00: [place] [facility] metoprolol Yes TK 1 T PO Un osvaldo succinate 8-09 QD ity of XL 25 mg 24 00:00: [place] hr tablet [facility] torsemide Yes 10mg Take 10 mg Un osvaldo 10 mg 8-09 by mouth ity of tablet 00:00: daily. [facility] atorvastati Yes TK 1 T PO U nivers n 40 mg 8-09 QD ity of tablet 00:00: [place] [facility] [facility] Yes TK 1 T PO Un osvaldo succinate 8-09 QD ity of XL 25 mg 24 00:00: [place] tablet [facility] torsemide Yes 10mg Take 10 mg Un osvaldo 10 mg 8-09 by mouth ity of tablet 00:00: daily. [facility] atorvastati Yes TK 1 T PO U nivers n 40 mg 8-09 QD ity of tablet 00:00: [place] [facility] metoprolol 2017 Yes TK 1 T PO Un osvaldo succinate 8-09 QD ity of XL 25 mg 24 00:00: [place] hr tablet [facility] torsemide Yes 10mg Take 10 mg Un osvaldo 10 mg 8-09 by mouth ity of tablet 00:00: daily. [facility] atorvastati Yes TK 1 T PO U nivers n 40 mg 8-09 QD ity of tablet 00:00: [place] [facility] levothyroxi Yes TK 1 T PO U nivers ne 25 mcg 8-08 QD ity of tablet 00:00: [place] [facility] levothyroxi Yes TK 1 T PO U nivers ne 25 mcg 8-08 QD ity of tablet 00:00: [place] [facility] levothyroxi 2017 Yes TK 1 T PO U nivers ne 25 mcg 8-08 QD ity of tablet 00:00: [place] [facility] levothyroxi 2017 Yes TK 1 T PO U nivers ne 25 mcg 8-08 QD ity of tablet 00:00: [place] [facility] levothyroxi 2017 Yes TK 1 T PO U nivers ne 25 mcg 8-08 QD ity of tablet 00:00: [place] [facility] levothyroxi 2017 Yes TK 1 T PO U nivers ne 25 mcg 8-08 QD ity of tablet 00:00: [place] [facility] levothyroxi Yes TK 1 T PO U nivers ne 25 mcg 8-08 QD ity of tablet 00:00: [place] [facility] levothyroxi Yes TK 1 T PO U nivers ne 25 mcg 8-08 QD ity of tablet 00:00: [place] [facility] levothyroxi 2017 Yes TK 1 T PO U nivers ne 25 mcg 8-08 QD ity of tablet 00:00: [place] [facility] levothyroxi Yes TK 1 T PO U nivers ne 25 mcg 8-08 QD ity of tablet 00:00: [place] [facility] levothyroxi Yes TK 1 T PO U nivers ne 25 mcg 8-08 QD ity of tablet 00:00: [place] [facility] levothyroxi Yes TK 1 T PO U nivers ne 25 mcg 8-08 QD ity of tablet 00:00: [place] [facility] levothyroxi 2017 Yes TK 1 T PO U nivers ne 25 mcg 8-08 QD ity of tablet 00:00: [place] [facility] levothyroxi 2017 Yes TK 1 T PO U nivers ne 25 mcg 8-08 QD ity of tablet 00:00: [place] [facility] levothyroxi Yes TK 1 T PO U nivers ne 25 mcg 8-08 QD ity of tablet 00:00: [place] [facility] levothyroxi Yes TK 1 T PO U nivers ne 25 mcg 8-08 QD ity of tablet 00:00: [place] [facility] lisinopril Yes 2.5 mg = 1 M emoria 2.5 mg oral 4-06 tab, PO, l tablet 13:46: Daily, # Garnett 00 30 tab, 0 Refill(s) AMIODarone Yes 200 mg = 1 M emoria 200 mg oral 4-06 tab, PO, l tablet 13:46: BID, Garnett 00 please start this regimen after 1 week of 400 mg PO BID for 1 week, # 60 tab, 0 Refill(s) Acetaminoph 2017 Yes 2 tab, PO, Memoria en 300 [...] Ty 00 30 tab, 0 Refill(s) metoprolol 2017 Yes 25 mg = 1 Me moria 25 mg oral 4-06 tab, PO, l tablet, 13:46: Daily, # Rafat n extended 00 30 tab, 0 release Refill(s) clopidogrel 2017 Yes 75 mg = 1 M emoria 75 mg oral 4-06 tab, PO, l tablet 13:46: Daily, # Ty 00 30 tab, 0 Refill(s) atorvastati 2017 Yes 40 mg = 1 M emoria [...] 14:00: Demadex) Amiodarone No Notes: Memor ia - (Same as: l 14:06: Cordarone) metoprolol No [...] 25 gm, 50 Danilo jerry 50% Syringe 4-02 mL, Route: l 15:21: IVP, Drug Form: INJ, Dosing Weight 103.653, kg, PRN, PRN Blood Glucose Results, Start date: 06/26/16 10:21:00 CDT, Duration: 30 day, Stop date: 07/26/16 10:20:00 CDT Insulin, No Notes: Memoria Aspart, 06-26 Roll in l Human 15:21: palms of Garnett 00 hands gently; Do not shake vigorously [...] 06-26 Roll in l 03:17: palms of [place] 00 hands gently; Do not shake vigorously [...] 06-25 0.5 mL, l 23:54: Route: Ty 00 IVP, Drug form: INJ, ONCE, Dosing Weight 103.653, kg, Priority: STAT, Start date: 06/25/16 18:54:00 CDT, Stop date: 06/25/16 18:54:00 CDT pantoprazol 2016- No Notes: Danilo jerry e - Tablet l 14:00: should not Garnett 00 be chewed or crushed. (Same as: Protonix) Mupirocin 2017- No 1 appl, Memor ia 0.02 MG/MG 06-25 Route: l Topical 14:00: NASAL, Garnett Ointment 00 BID, Drug form: OINT, Start date: 06/25/16 9:00:00 CDT, Duration: 5 day, Stop date: 06/29/16 17:00:00 CDT clopidogrel 2016- No Notes: Danilo jerry - (Same As: l 14:00: Plavix) Ty Aspirin 325 2016- No 325 mg, Mem oria MG Enteric 06-25 Route: PO, l Coated 14:00: Drug form: Soumya nn Tablet 00 ECTAB, Daily, Dosing Weight 102.926, kg, Start date: 06/25/16 9:00:00 CDT, Duration: 30 day, Stop date: 07/24/16 9:00:00 CDT heparin 2016- No Notes: Memoria - porcine l 13:00: heparin Ty 00 vancomycin 2016- No 2000 mg: Me moria 4-01 infuse l 06:30: over 2.5 Ty 00 hours cefuroxime No Notes: Memor ia + sodium - (Same As: l chloride 06:00: Kefurox, Soumya nn 0.9% INJ 00 Zinacef) 100 mL MEDICATION WASTE Product Size: 1500 mg Product Wasted: ___ mg Vancomycin 2017- No 1,554.795 Me moria 4-01 mg, Route: l 02:00: IVPB, Drug Garnett 00 form: INJ, Q12H, Dosing Weight 103.653, kg, Time Critical Medication , Start date: 06/24/16 21:00:00 CDT, Duration: 2 doses or times, Stop date: 06/25/16 9:00:00 CDT chlorhexidi No Notes: Danilo jerry ne 4- (Same As: l gluconate 02:00: Peridex) Herm jigna 1.2 MG/ML 00 Mouthwash Aspirin 325 No Notes: Danilo jerry MG Oral 4- Take with l Tablet 02:00: food. Ty 00 EPINEPHrine No Notes: Danilo jerry 4 mg + 3 (Same as: l sodium 23:38: Adrenalin) Soumya nn chloride 00 Suremed - 0.9% INJ Injectable 246 mL drug used as inhalation treatment. MEDICATION WASTE Product Size: 1 mg Product Wasted: ___ mg insulin No Notes: Memoria aspart 3- Roll in l 23:37: palms of Ty 00 hands gently; Do not shake vigorously . (Same as: NovoLOG) "single patient use only" WASTE: F/P - Black; E - Municipal Trash Bin Stable for 28 days at room temperatur e. Expires in days from ____Date insulin No Notes: Memoria aspart - Roll in l 23:36: palms of [place]ett 00 hands gently; Do not shake vigorously [...] Bin albuterol No Notes: SEE Me moria 3- RT l 23:16: DOCUMENTAT Garnett 00 ION (Same as: Proventil) Fentanyl No Notes: Memoria 3- Concentrat l 23:00: ion is 20 Garnett 00 micrograms /ml metoprolol No Notes: Memor ia tartrate 06-24 (Same as: l 23:00: Lopressor) Garnett Cefuroxime No Notes: Memor ia 06-24 (Same As: l 23:00: Kefurox, Garnett Zinacef) MEDICATION WASTE Product Size: 1500 mg [...] WASTE: F/P l 22:44: - Sink; E Garn[place] - Municipal Trash Bin Magnesium No Notes: Memori a Oxide 06-24 (Same as: l 22:44: Mag-Ox Ty 400) Magnesium oxide [id number] g elemental magnesium Dose=____m g magnesium oxide (___mg elemental magnesium) Magnesium No Notes: Memori a Sulfate 06-24 WASTE: F/P l 22:44: - Sink; E [place] - Municipal Trash Bin potassium No Notes: Memori a chloride 06-24 (Same as: l 22:44: Potassium Ty 00 Chloride) Calcium No Notes: Memoria Carbonate 06-24 (Same As: l 500 MG 22:44: Tums) Ty Chewable 00 Calcium Tablet Carbonate 500 mg = 200 mg elemental calcium Dose = mg calcium carbonate ( mg elemental calcium) Insulin, No Notes: Memoria Aspart, 3- Roll in l Human 22:44: palms of Garnett hands gently; Do not shake vigorously . [...] phosphate 3-31 (Same as: l 22:44: K [place] Phosphate) sodium No 15 mmol, Memoria phosphate 3-31 250 mL, l 22:44: Route: Garnett 00 IVPB, Drug form: INJ, PRN, Dosing Weight 103.653, kg, PRN Abnormal Lab Result, Start date: 06/24/16 17:44:00 CDT, Duration: 30 day, Stop date: 07/24/16 17:43:00 CDT, FOR ICU USE ONLY Naloxone No Notes: Memoria 3-31 Same as l 22:44: Narcan Ty 00 Saline No Notes: Memoria Flush 0.9% 3-31 (Same as: l 22:44: BD Ty Posiflush) Dulcolax No Notes: Memoria Laxative 3-31 (Same As: l 22:44: Dulcolax, Garnett Bisco-Lax) Lactulose No Notes: Memori a 667 MG/ML 3-31 (Same l Oral 22:44: as:Chronul Ty Solution 00 ac) albumin No Notes: Memoria human 5% 3-31 LOT#: l intravenous 22:44: Ty solution 00 ___ Mfg: WASTE: F/P - Red; E -Red (Same as: Albuminar) "blood product derivative " Acetaminoph No Notes: Do M emoria en 300 MG / 06-24 not exceed l Codeine 22:44: 4gm/day of Herm jigna Phosphate 00 acetaminop 30 MG Oral hen. Tablet (Same as: [Tylenol Tylenol with with Codeine #3] Codeine # 3) Zofran No Notes: Memoria 06-24 (Same as: l 22:44: Zofran) Garnett 00 MEDICATION WASTE Product Size: 4 mg Product Wasted: ___ mg Xopenex No 1.25 mg, Memori a 06-24 Route: l 22:44: NEB, PRN, Garnett Dosing Weight 102.926, kg, PRN Respirator y Protocol, Start date: 06/24/16 17:44:00 CDT, Duration: 30 day, Stop date: 07/24/16 17:43:00 CDT Morphine No Notes: Memoria 06-24 (Same l 22:44: as:MORPhin [place] e Sulfate) Albuterol No Notes: Memori a 0.833 MG/ML 06-24 (Same as: l / 22:44: Duoneb) Ty Ipratropium 00 Peshastin 0.167 MG/ML Inhalant Solution Glucagon No 1 mg, Memoria 06-24 Route: IM, l 22:44: Drug form: Garnett PDR/INJ, PRN, Dosing Weight 103.653, kg, PRN Blood Glucose Results, Start date: 06/24/16 17:44:00 CDT, Duration: 30 day, Stop date: 07/24/16 17:43:00 CDT Nitroglycer No Notes: Danilo jerry in 06-24 (Same l 22:44: as:Nitroqu Ty ick, Nitrostat) "Do Not Crush" Sublingual tablet Docusate No Notes: Memoria 06-24 (Same as: l 22:44: Colace) Garnett (Do Not Crush) Ondansetron No Notes: Danilo jerry 06-24 (Same as: l 22:44: Zofran) Ty 00 [...] 06-24 not exceed l 22:44: 4 gm/day. Garnett (Same as: Tylenol) vasopressin No Route: IV, [...] Drug form: l 19:11: INJ, ONCE, Ty Stop date: 06/24/16 14:11:00 CDT rocuronium No Route: IV, M emoria (ANES) 06-24 Drug form: l 19:06: INJ, ONCE, Garnett 00 Stop date: 06/24/16 14:06:00 CDT propofol No Route: IV, Mem oria (ANES) 06-24 Drug form: l 19:06: INJ, ONCE, Garnett 00 Stop date: 06/24/16 14:06:00 CDT Amicar [...] (ANES) 06-24 Drug form: l 18:11: SOLN, Garnett 00 ONCE, Stop date: 06/24/16 13:11:00 CDT morphine No Route: IV, Mem oria Sulfate 06-24 Drug form: l (ANES) 18:11: INJ, ONCE, Soumya nn Stop date: 06/24/16 13:11:00 CDT Isolyte S No Route: IV, Me moria (PH 7.4) 06-24 Total l 1000 mL 17:39: Volume: Ty (ANES) 00 1,000, Start date: 06/24/16 12:39:00 CDT, Stop date: 06/24/16 13:39:00 CDT sodium 2017-0 No 1,000 mL, Memori a chloride 3-29 Rate: 125 l 0.9% 1000 12:35: ml/hr, Rafat n ml INJ 00 Infuse 1,000 mL over: 8 hr, Route: IV, Dosing Weight 99.563 kg, Total Volume: 1,000, Start date: 06/22/16 7:35:00 CDT, Duration: 30 day, Stop date: 07/22/16 7:34:00 CDT Sodium 2016- No 250 mL, Memoria Chloride 3-29 250 ml/hr, l 0.154 12:34: Infuse Garnett MEQ/ML 00 Over: 1 Injectable hr, Route: [...] a 3-26 (Same as: l 22:00: Lopressor) Garnett Levemir No Notes: Memoria 3-25 Same as l 02:00: Levemir Do 00 not hold insulin without contacting prescriber [...] hr Saline No Notes: Memoria Flush 0.9% 24 (Same as: l 23:54: BD Posiflush) metoprolol [...] ia 3-24 Nurse to l 14:00: ensure Garnett 00 documentat ion of patient education per anticoagul ation policy. (Same as: Lovenox) Albuterol No Notes: Memori a 0.833 MG/ML 24 (Same as: l / 01:00: Duoneb) Ty Ipratropium 00 Peshastin 0.167 MG/ML Inhalant Solution [DuoNeb] Budesonide No Notes: Memor ia 0.25 MG/ML 06-16 (Same As: l Inhalant 23:32: Pulmicort) Her cazares Solution 00 [Pulmicort] Solu-Medrol No Notes: Danilo jerry 06-16 (Same l 23:12: as:Solu-ME Ty 00 DROL, A-Methapre d) Lovenox No Notes: Memoria 06-16 Nurse to l 23:00: ensure Garnett documentat ion of patient education per [facility] ation policy. (Same as: Lovenox) Sodium No 250 mL, Memoria Chloride 06-16 250 ml/hr, l 0.154 22:00: Infuse Garnett MEQ/ML 00 Over: 1 Injectable hr, Route: Solution IV, 250, Drug form: INJ, ONCALL, Priority: Routine, Dosing Weight 102.926 kg, Start date: 06/16/16 17:00:00 CDT, Duration: 1 doses or times Sodium No 750 mL, Memoria Chloride 23 Rate: 75 l 0.154 21:15: ml/hr, Garnett MEQ/ML 00 Infuse Injectable over: 10 Solution [...] 3-23 not exceed l 21:11: 4 gm/day. Garnett 00 (Same as: Tylenol) Sodium No 500 [...] 15:44:00 CDT Insulin, No Notes: Memoria Aspart, 06-16 Roll in l Human 20:45: palms of Garnett 00 hands gently; Do not shake vigorously . (Same as: NovoLOG) "single patient use only" WASTE: F/P - Black; E - Solx Trash Bin Stable for 28 days at room temperatur e. Expires in days from ____Date Glucagon No 1 mg, Memoria 06-16 Route: IM, l 20:45: Drug form: Ty 00 PDR/INJ, PRN, Dosing Weight 102.926, kg, PRN Blood Glucose Results, Start date: 06/16/16 15:45:00 CDT, Duration: 30 day, Stop date: 07/16/16 15:44:00 CDT Sodium 2016- No 1,000 mL, Memori a Chloride 06-16 Rate: 100 l 0.154 14:19: ml/hr, Ty MEQ/ML 00 Infuse Injectable over: 10 Solution hr, Route: IV, Dosing Weight 102.926 kg, Total Volume: 1,000, Start date: 06/16/16 9:19:00 CDT, Duration: 30 day, Stop date: 07/16/16 9:18:00 CDT aspirin 81 No Notes: Do Me moria mg tablet, 3-23 not crush l enteric 14:00: or chew. Rafat n coated 00 (Same As: Ecotrin) Nitroglycer No Notes: 1 Me moria in 0.02 3-23 gram is l MG/MG 11:00: approximat Rafat n Topical 00 zara 1 inch Ointment of nitroglyce rin ointment (20 mg NTG per gram) (Same as:Nitro-B id) metoprolol No Notes: Memor ia tartrate -23 (Same as: l 05:00: Lopressor) Sodium No 250 mL, Memoria Chloride 3-23 250 ml/hr, l 0.154 03:00: Infuse Ty MEQ/ML 00 Over: 1 Injectable hr, Route: Solution IV, 250, Drug form: INJ, ONCALL, Priority: Routine, Dosing Weight 102.926 kg, Start date: 06/15/16 22:00:00 CDT, Duration: 1 doses or times Sodium No 750 mL, Memoria Chloride 06-16 Rate: 75 l 0.154 02:02: ml/hr, Garnett MEQ/ML 00 Infuse Injectable over: 10 Solution hr, Route: IV, Dosing Weight 102.926 kg, Total Volume: 750, Start date: 06/15/16 21:02:00 CDT, Duration: 24 hr, Stop date: 06/16/16 21:01:00 CDT Saline No Notes: Memoria Flush 0.9% - (Same as: l 02:00: BD Posiflush) atorvastati No Notes: Danilo jerry n -23 (Same as: l 02:00: Lipitor) metoprolol No 25 mg, Memor ia tartrate -23 Route: PO, l 02:00: Drug form: TAB, [...] l / 18:56: Duoneb) Ty Ipratropium 00 Peshastin 0.167 MG/ML Inhalant Solution [DuoNeb] Saline No Notes: Memoria Flush 0.9% - (Same as: l 18:52: BD Garnett 00 Posiflush) Labetalol No Notes: Memori a -22 (Same as: l 18:52: Normodyne, Garnett Trandate) Push over 2 minutes Give bolus over 2-3 minutes. Trazodone No Notes: Memori a Hydrochlori - (Same As: l de 50 MG 18:52: Desyrel) Soumya nn Oral Tablet 00 Miralax No Notes: Memoria 3-22 Dissolve l 18:52: in 8 oz of Garnett 00 water or juice. (Same as: Miralax) Nitroglycer No Notes: Danilo jerry in 06-15 (Same l 18:52: as:Nitroqu ick, Nitrostat) "Do Not Crush" Sublingual tablet Morphine No Notes: Memoria -22 (Same l 18:52: as:MORPhin [place] 00 e Sulfate) Ondansetron No Notes: Danilo jerry - (Same as: l 18:52: Zofran) Immunizations Ordered Filled Immunization Date Status Comments Sour e Immunization Name Name Influenza High Dose 2018-11-25 Completed [facility] of 00:00:00 [facility] Influenza High Dose 2018-11-25 Completed [facility]ive rsity of 00:00:00 [facility] Influenza High Dose 2018-11-25 Completed Unive rsity of 00:00:00 [facility] Influenza High Dose 2018-11-25 Completed Unive rsity of 00:00:00 [facility] Influenza High Dose 2018-11-25 Completed Unive rsity of 00:00:00 [facility] Influenza High Dose 2018-11-25 Completed Unive rsity of 00:00:00 [facility] Influenza High Dose 2018-11-25 Completed Unive rsity of 00:00:00 [facility] Influenza High Dose 2018-11-25 Completed Unive rsity of 00:00:00 [facility] Influenza High Dose 2018-11-25 Completed Unive rsity of 00:00:00 [facility] Influenza High Dose 2018-11-25 Completed Unive rsity of 00:00:00 [facility] Influenza High Dose 2018-11-25 Completed Unive rsity of 00:00:00 [facility] pneumococcal 2016-06-30 Completed [facility] 13-valent vaccine 17:42:00 Vital Signs Vital Name Observation Time Observation Value Comments Source HEIGHT 2020-09-11 09:44:00 177.8 cm WEIGHT 2020-09-11 09:44:00 95.255 kg HEIGHT 2020-09-11 09:44:00 177.8 cm WEIGHT 2020-09-11 09:44:00 95.255 kg HEIGHT 2020-09-07 14:08:00 177.8 cm WEIGHT 2020-09-07 14:08:00 80.74 kg HEIGHT 2020-09-07 14:08:00 177.8 cm WEIGHT 2020-09-07 14:08:00 80.74 kg Systolic blood 2019-04-25 17:33:00 106 mm[Hg] Univer sity of pressure [facility] Diastolic blood 2019-04-25 17:33:00 76 mm[Hg] Unive rsity of pressure [facility] Heart rate 2019-04-25 17:33:00 77 /min [facility] Respiratory rate 2019-04-25 17:33:00 19 /min Univ ersity of [facility] Body height 2019-04-25 17:33:00 167.6 cm [facility] Body weight 2019-04-25 17:33:00 95.709 kg [facility] BMI 2019-04-25 17:33:00 34.06 kg/m2 [facility] Oxygen saturation in 2019-04-25 17:33:00 99 /min [facility] Arterial blood by [facility] Pulse oximetry Branch Systolic blood 2018-12-06 14:38:00 134 mm[Hg] Univer sity of pressure [facility] Diastolic blood 2018-12-06 14:38:00 74 mm[Hg] Unive rsity of [facility] Heart rate 2018-12-06 14:38:00 75 /min [facility] Respiratory rate 2018-12-06 14:38:00 19 /min [facility] height 2018-12-06 14:38:00 167.6 cm [facility] Body weight 2018-12-06 14:38:00 105.235 kg [facility] [place] BMI 2018-12-06 14:38:00 37.45 kg/m2 [facility] Oxygen saturation in 2018-12-06 14:38:00 97 /min [facility] Arterial blood by [facility] Pulse oximetry Branch Heart rate 2020-11-14 18:27:00 65 /min MD Harden son Respiratory rate 2020-11-14 18:27:00 18 /min MD Chapo kauron Systolic blood 2020-11-14 17:17:17 118 mm[Hg] pressure Diastolic blood 2020-11-14 17:17:17 76 mm[Hg] MD Yamilet coreason pressure Body temperature 2020-11-14 17:17:17 36.61 Arlen MD Chapo fine Oxygen saturation in 2020-11-14 17:17:17 96 /min MD Barrientos Arterial blood by Pulse oximetry Body weight 2020-11-13 09:45:00 95.8 kg MD Harden son BMI 2020-11-13 09:45:00 33.15 kg/m2 MD Harden son Body height 2020-10-29 16:22:00 170 cm MD Dereck kim Respitory Rate 2016-06-30 20:27:00 Memori al [place] Systolic (mm Hg) 2016-06-30 20:27:00 Danilo rial [place] Diastolic (mm Hg) 2016-06-30 20:27:00 Mem orial Ty Heart Rate 2016-06-30 20:27:00 [facility] [place] Respitory Rate 2016-06-30 17:09:00 Memori al Ty Systolic (mm Hg) 2016-06-30 17:09:00 Danilo rial [place] Diastolic (mm Hg) 2016-06-30 17:09:00 Mem orial [place] Heart Rate 2016-06-30 17:09:00 [facility] [place] Systolic (mm Hg) 2016-06-30 13:00:00 Danilo rial Ty Diastolic (mm Hg) 2016-06-30 13:00:00 Mem orial Ty Heart Rate 2016-06-30 13:00:00 [facility] [place] Respitory Rate 2016-06-30 13:00:00 Blancaori al [place] Weight 2016-06-29 10:00:00 Memorial Ty Weight 2016-06-28 10:23:00 [facility] [place] Height 2016-06-25 05:04:00 177.8 cm [facility] [place] Height 2016-06-25 03:47:00 177.8 cm Memorial Ty Height 2016-06-24 22:55:00 177.8 cm Memorial Ty Temperature Oral (F) 2016-06-24 14:55:00 97.6 F Memorial Ty Weight 2016-06-24 10:00:00 [facility] [place] Temperature Oral (F) 2016-06-20 13:00:00 97.9 F Memorial Ty BMI Calculated 2016-06-15 16:47:00 Memori al [place] Procedures Procedure Date / Time Performing Clinician [...] URIC ACID 2020-11-14 07:17:00 Mari Lovell MD Andprabhjoto n ALBUMIN LEVEL 2020-11-14 07:17:00 Yuriy Parker [...] Gurrola MD MANUAL DIFFERENTIAL 2020-11-14 07:17:00 Yanet Gurrola MD Jay rson OSCILLATORY PEP 2020-11-13 19:00:28 [...] DIFFERENTIAL TYPE AND SCREEN 2020-11-13 08:47:00 Vania Pascualers on APTT 2020-11-13 08:47:00 Mari Lovell MD [...] MD ELECTROLYTE PANEL 2020-11-13 08:47:00 [facility] SERUM CREATININE 2020-11-13 08:47:00 Yuriy Parker MD [...] Segun PROTEIN / CREATININE RATIO 2020-11-11 22:06:00 Peter Middleton URINE Segun URINALYSIS WITH 2020-11-11 22:06:00 MD Camryn Dunn MICROSCOPIC IF INDICATED Anastacio TRANSFUSE RED BLOOD CELLS 2020-11-11 19:21:00 MD Floyd Dunn Anastacio OSCILLATORY PEP 2020-11-11 19:00:42 Kristina Blake MD OSCILLATORY PEP 2020-11-11 13:00:09 Kristina Blake MD PREPARE RBC 2020-11-11 12:00:00 MD Camryn Dunn Anastacio PRBC PRODUCT READY FOR 2020-11-11 12:00:00 MD Floyd Dunn ENGINEERING TECHNOLOGIST Anastacio HEPATIC FUNCTION PANEL 2020-11-11 09:16:00 Yuriy [...] on APTT 2020-11-10 12:55:00 Mari Lovell MD URIC ACID 2020-11-10 12:55:00 Mari Lovell MD [...] DATE 2020-11-10 12:55:00 Randolph Payne MD Jay rson TMP CROSSMATCH 2020-11-10 12:55:00 Randolph Payne MD [...] Blake MD OSCILLATORY PEP 2020-11-08 01:00:07 Kristina Blaek MD LOWER RESPIRATORY CULTURE 2020-11-08 00:20:00 Hayden Preceleste MD Barrientos W/ GRAM STAIN OSCILLATORY PEP 2020-11-07 19:00:27 Kristina Blake MD OSCILLATORY PEP 2020-11-07 13:00:08 Kristina Blake MD [...] AND SCREEN 2020-11-07 08:41:00 Vania Pascual MD on URIC ACID 2020-11-07 08:41:00 Mari Lovell MD [facility] 2020-11-07 08:41:00 Randolph Payne MD ANTIBODY SCREEN [...] MD ELECTROLYTE PANEL 2020-11-07 08:41:00 Yuriy Parker MDson SERUM CREATININE 2020-11-07 08:41:00 Yuriy Parker MD And erson .GLOMERULAR FILTRATION 2020-11-07 08:41:00 Yuriy Parker MD RATE CALCIUM LEVEL TOTAL 2020-11-07 08:41:00 Yuriy Parker MD Results CBC 2020-11-07 08:41:00 Yanet Gurrola MD MANUAL DIFFERENTIAL 2020-11-07 08:41:00 Yanet Gurrola MD Jay rson CLOT EXPIRATION DATE 2020-11-07 08:41:00 Randolph Payne MD Jay rson TMP INTERPRETATION 2020-11-07 08:41:00 Randolph Payne MD on ANTIBODY SCREEN NEGATIVE OSCILLATORY PEP 2020-11-07 [...] MANUAL DIFFERENTIAL 2020-11-06 08:26:00 Yanet Gurrola MD Jay rson OSCILLATORY PEP 2020-11-06 01:00:09 Kristina Blake [...] DIFFERENTIAL 2020-11-05 07:14:00 Yanet Gurrola MD Jay rson OSCILLATORY PEP 2020-11-05 02:07:06 Kristina Blake MD HEPATIC FUNCTION PANEL 2020-11-04 08:46:00 Yuriy Parker MD COMPREHENSIVE METABOLIC 2020-11-04 08:46:00 Yuriy Parker MD PANEL MAGNESIUM LEVEL 2020-11-04 08:46:00 Yuriy Parker MD Jay rson PHOSPHORUS LEVEL 2020-11-04 08:46:00 Yuriy Parker MD And erson LACTATE DEHYDROGENASE 2020-11-04 08:46:00 Yanet Gurrola MD COMPLETE BLOOD COUNT W/ 2020-11-04 08:46:00 Yanet Gurrola MD DIFFERENTIAL TYPE AND SCREEN 2020-11-04 08:46:00 Vania Pascual MD Herman on URIC ACID 2020-11-04 08:46:00 Mari Lovell [facility] 2020-11-04 08:46:00 Randolph Payne MD ANTIBODY SCREEN 2020-11-04 08:46:00 Randolph Payne MD ALBUMIN LEVEL 2020-11-04 08:46:00 Yuriy Parker MD Jay rson ALKALINE PHOSPHATASE 2020-11-04 08:46:00 Yuriy Parker MD [...] Parker MD ASPARTATE AMINOTRANSFERASE 2020-11-03 08:10:00 Carmencita aPrker MD TOTAL PROTEIN 2020-11-03 08:10:00 Yuriy Parker [...] MANUAL DIFFERENTIAL 2020-11-03 08:10:00 Yanet Gurrola MD rsaldo RIGHT HEART CATH 2020-11-02 15:17:00 Cj Hinds MD POC OXIMETRY VENOUS 2020-11-02 15:00:00 Kristina Blake MD son POC OXIMETRY VENOUS 2020-11-02 14:57:00 Kristina Blake MD son APTT 2020-11-02 09:41:00 Cj Hinds MD PROTHROMBIN TIME 2020-11-02 09:41:00 Cj Hinds MD IMMATURE PLATELET FRACTION 2020-11-02 09:41:00 Cj Hinds RETICULOCYTE COUNT 2020-11-02 09:41:00 Cj Hinds MD Herman on AUTOMATED HEPATIC FUNCTION PANEL [...] READY FOR 2020-11-01 11:07:00 Kristina Blake MD ENGINEERING TECHNOLOGIST VRE CULTURE 2020-11-01 10:36:00 Yuriy Parker MD Ajy rsaldo HEPATIC FUNCTION PANEL 2020-11-01 09:56:00 Yuriy Parker MD COMPREHENSIVE METABOLIC 2020-11-01 09:56:00 Yuriy Parker MD PANEL MAGNESIUM LEVEL 2020-11-01 09:56:00 Yuryi Parker MD Jay rson PHOSPHORUS LEVEL 2020-11-01 09:56:00 Yuriy Parker MD And erson LACTATE DEHYDROGENASE 2020-11-01 09:56:00 Yanet Gurrola MD COMPLETE BLOOD COUNT W/ 2020-11-01 09:56:00 Yanet Gurrola MD DIFFERENTIAL TYPE AND SCREEN 2020-11-01 09:56:00 Vania Pascual MD Herman on URIC ACID 2020-11-01 09:56:00 Mari Lovell MD Anderso n ABORH 2020-11-01 09:56:00 [place] Payne MD [...] DATE 2020-11-01 09:56:00 Randolph Payne MD Jay rson TMP INTERPRETATION 2020-11-01 09:56:00 Randolph Payne MD on ANTIBODY SCREEN NEGATIVE NT PRO [...] MANUAL DIFFERENTIAL 2020-10-31 09:13:00 Yanet Gurrola MD Jay rsaldo TRANSFUSE RED BLOOD CELLS 2020-10-30 20:20:00 [...] PRBC PRODUCT READY FOR 2020-10-30 09:21:00 Kristina Blake MD ENGINEERING TECHNOLOGIST HEPATIC FUNCTION PANEL 2020-10-30 08:45:00 Yuriy Parker [...] Mari Lovell MD PROTHROMBIN TIME 2020-10-30 08:45:00 Mrai Lovell MD on ALBUMIN LEVEL 2020-10-30 08:45:00 Yuriy Parker MD Jay rson ALKALINE PHOSPHATASE 2020-10-30 08:45:00 Yuriy Parker MD ALANINE AMINOTRANSFERASE 2020-10-30 08:45:00 Yuriy Parker MD ASPARTATE AMINOTRANSFERASE 2020-10-30 08:45:00 Carmencita Parker MD TOTAL PROTEIN 2020-10-30 08:45:00 Yuryi Parker MD Jay rson FRACTIONATED BILIRUBIN 2020-10-30 [...] on URIC ACID 2020-10-29 09:26:00 Mari Lovell MDo n ABORH 2020-10-29 09:26:00 Randolph Payne MD ANTIBODY SCREEN [...] MD ELECTROLYTE PANEL 2020-10-29 09:26:00 Yuriy Parker MDson SERUM CREATININE 2020-10-29 09:26:00 Yuriy Parker MD And erson .GLOMERULAR FILTRATION 2020-10-29 09:26:00 Yuriy Parker MD RATE CALCIUM LEVEL TOTAL 2020-10-29 09:26:00 Yuriy Parker MD Results CBC 2020-10-29 09:26:00 Yanet Gurrola MD MANUAL DIFFERENTIAL 2020-10-29 09:26:00 Yanet Gurrola MD Jay rsaldo CLOT EXPIRATION DATE 2020-10-29 09:26:00 Randolph Payne [...] URIC ACID 2020-10-28 09:39:00 Mari Lovell MD ALBUMIN LEVEL 2020-10-28 09:39:00 Yuriy Parker MD [...] MD ELECTROLYTE PANEL 2020-10-28 09:39:00 Yuriy Parker MD derson SERUM CREATININE 2020-10-28 09:39:00 Yuriy Parker MD And erson .GLOMERULAR FILTRATION 2020-10-28 09:39:00 Yuriy Parker MD RATE CALCIUM LEVEL TOTAL 2020-10-28 09:39:00 Yuriy Parker MD Results CBC 2020-10-28 09:39:00 Yanet Gurrola MD MANUAL DIFFERENTIAL 2020-10-28 09:39:00 Yanet Gurrola MD Jay rson OSCILLATORY PEP 2020-10-28 07:00:14 [...] LEVEL RANDOM 2020-10-27 14:55:00 Kaykay Dodd MD ndersaldo POC GLUCOSE SCREEN 2020-10-27 10:18:00 Randolph Payne [...] LACTATE DEHYDROGENASE 2020-10-27 08:32:00 Yanet Gurrola MD An derson FERRITIN LVL 2020-10-27 08:32:00 Yanet Gurrola MD [...] MD POC GLUCOSE SCREEN 2020-10-26 16:14:00 Randolph aPyne MD on OSCILLATORY PEP 2020-10-26 13:00:16 Darryl [...] erson LACTATE DEHYDROGENASE 2020-10-26 09:43:00 Yanet Gurrola MDson FERRITIN LVL 2020-10-26 09:43:00 Yanet Gurrola MD COMPLETE BLOOD COUNT W/ 2020-10-26 09:43:00 Yanet Gurrola MD DIFFERENTIAL TYPE AND SCREEN 2020-10-26 09:43:00 Vania Pascual MD on ABORH 2020-10-26 09:43:00 Randolph Payne MD ANTIBODY SCREEN 2020-10-26 09:43:00 Randolph Payen MD ALBUMIN LEVEL 2020-10-26 09:43:00 Yuriy Parker MD Jay rsaldo ALKALINE PHOSPHATASE 2020-10-26 09:43:00 Yuriy Parker MD ALANINE AMINOTRANSFERASE 2020-10-26 09:43:00 Yuriy Parker MD ASPARTATE AMINOTRANSFERASE 2020-10-26 09:43:00 Carmencita Parker MD TOTAL PROTEIN 2020-10-26 09:43:00 Yuriy Parker MD Jay rson FRACTIONATED BILIRUBIN 2020-10-26 09:43:00 Yuriy Parker MD GLUCOSE LEVEL 2020-10-26 09:43:00 Yuriy Parker MD Jay rsaldo BLOOD UREA NITROGEN 2020-10-26 09:43:00 Yuriy Parker [...] READY FOR 2020-10-25 12:49:00 Randolph Payne MD ENGINEERING TECHNOLOGIST POC GLUCOSE SCREEN 2020-10-25 11:03:00 Randolph Payne MD on PROTHROMBIN TIME 2020-10-25 10:07:00 Yuriy Parker MD And erson APTT 2020-10-25 10:07:00 Yuriy Parker MD Jay rson HEPATIC FUNCTION PANEL 2020-10-25 10:07:00 Yuriy Parker MD COMPREHENSIVE METABOLIC 2020-10-25 10:07:00 Yuriy Parker MD PANEL MAGNESIUM LEVEL 2020-10-25 10:07:00 Yuriy Parker MD Ajy rson PHOSPHORUS LEVEL 2020-10-25 10:07:00 Yuriy Parker [...] DIFFERENTIAL 2020-10-25 10:07:00 Yanet Gurrola MD Jay rsaldo POC GLUCOSE SCREEN 2020-10-25 05:20:00 Randolph Payne [...] Carmencita Parker MD TOTAL PROTEIN 2020-10-24 09:49:00 Yuriy Parker MD Jay rson FRACTIONATED BILIRUBIN 2020-10-24 [...] LEVEL 2020-10-23 08:59:00 Yuriy Parker MD Jay rsaldo BLOOD UREA NITROGEN 2020-10-23 08:59:00 Yuriy Parker MD ELECTROLYTE PANEL 2020-10-23 08:59:00 Yuriy Parker MD SERUM CREATININE 2020-10-23 08:59:00 Yuriy Parker MD And erson .GLOMERULAR FILTRATION 2020-10-23 08:59:00 Yuriy Parker MD RATE CALCIUM LEVEL TOTAL 2020-10-23 08:59:00 Yuriy Parker MD Results CBC 2020-10-23 08:59:00 Yanet Gurrola MD MANUAL DIFFERENTIAL 2020-10-23 08:59:00 Yanet Gurrola MD Jay rsaldo CLOT EXPIRATION DATE 2020-10-23 08:59:00 Randolph Payne MD Jay rsaldo TMP INTERPRETATION 2020-10-23 08:59:00 Randolph Payne MD [...] Dereck son PROTHROMBIN TIME 2020-10-22 07:01:00 Yuriy Parker MD And erson APTT 2020-10-22 07:01:00 Yuriy Parker MD rson HEPATIC FUNCTION PANEL 2020-10-22 07:01:00 Yuriy Parker MD COMPREHENSIVE METABOLIC 2020-10-22 07:01:00 Yuriy Parker MD PANEL MAGNESIUM LEVEL 2020-10-22 07:01:00 Yuriy Parker MD Jay rson PHOSPHORUS LEVEL 2020-10-22 07:01:00 Yuriy Parker MD And erson LACTATE DEHYDROGENASE 2020-10-22 07:01:00 Yanet Gurrola MD derson FERRITIN LVL 2020-10-22 07:01:00 Yanet Gurrola MD [...] GLUCOSE SCREEN 2020-10-21 23:10:00 Randolph Payne MD on OSCILLATORY PEP 2020-10-21 19:00:52 Darryl Banerjee MD GASTROINTESTINAL MULTIPLEX 2020-10-21 18:49:00 Yanet Gurrola MD PANEL PATH REVIEW C DIFFICILE DNA ASSAY 2020-10-21 18:49:00 Yanet Gurrola MDson GASTROINTESTINAL MULTIPLEX 2020-10-21 18:49:00 Yanet Gurrola MD PANEL C DIFFICILE DNA ASSAY [...] Gurrola MD DIFFERENTIAL ALBUMIN LEVEL 2020-10-21 09:51:00 Yruiy Parker MD Jay rson ALKALINE PHOSPHATASE 2020-10-21 [...] ELECTROLYTE PANEL 2020-10-21 09:51:00 Yuriy Parker MD nahomyson SERUM CREATININE 2020-10-21 09:51:00 Yuriy Parker MD [...] ANTIBODY SCREEN 2020-10-20 09:17:00 Yuriy Parker MD Jay rsaldo CLOT EXPIRATION DATE 2020-10-20 09:17:00 Yuriy [...] INDICATED POC GLUCOSE SCREEN 2020-10-19 19:16:00 Darryl Baenrjee MD on OSCILLATORY PEP 2020-10-19 19:00:55 Darryl Banerjee MD TRANSFUSE RED BLOOD CELLS 2020-10-19 18:35:00 Darryl Banerjee MD FERRITIN LVL 2020-10-19 16:25:00 Yanet Gurrola MD LACTATE DEHYDROGENASE 2020-10-19 16:25:00 Yanet Gurrola MD derson OSCILLATORY PEP 2020-10-19 13:00:17 Darryl Banerjee MD POC GLUCOSE SCREEN 2020-10-19 12:23:00 Darryl Banerjee MD Herman on PREPARE RBC 2020-10-19 10:10:00 Darryl Banerjee MD PRBC PRODUCT READY FOR 2020-10-19 10:10:00 Darryl Banerjee MD ENGINEERING TECHNOLOGIST PROTHROMBIN TIME 2020-10-19 09:25:00 Yuriy Parker MD [...] Parker MD POC GLUCOSE SCREEN 2020-10-19 06:20:00 BanerjeeDarryl betancourt MD on OSCILLATORY PEP 2020-10-19 01:00:15 Darryl Banerjee MD POC GLUCOSE SCREEN 2020-10-19 00:48:00 Darryl Banerjee MD on VRE CULTURE 2020-10-18 21:11:00 Yuriy Parker MD Jay rson POC GLUCOSE SCREEN 2020-10-18 17:19:00 BanerjeeDarryl betancourt MD on OSCILLATORY PEP 2020-10-18 13:00:10 BanerjeeDarryl betancourt MD POC GLUCOSE SCREEN 2020-10-18 09:55:00 BanerjeeDarryl betancourt MD on PROTHROMBIN TIME 2020-10-18 09:09:00 Yuriy [...] CREATININE 2020-10-18 09:09:00 Yuriy Parker MD And ersalod .GLOMERULAR FILTRATION 2020-10-18 09:09:00 Yuriy Parekr MD RATE CALCIUM LEVEL TOTAL 2020-10-18 09:09:00 [...] READY FOR 2020-10-17 13:21:00 Darryl Banerjee MD ENGINEERING TECHNOLOGIST POC GLUCOSE SCREEN 2020-10-17 12:14:00 Darryl Banerjee MD on HEPATITIS B SURFACE 2020-10-17 09:16:00 Shraddha Nunn MD Dereck son ANTIGEN, SERUM PROTHROMBIN TIME 2020-10-17 09:16:00 Yuryi Parker MD And erson APTT 2020-10-17 09:16:00 [...] AND SCREEN 2020-10-17 09:16:00 Yuriy Parker MD Ajy rson ALBUMIN LEVEL 2020-10-17 09:16:00 Yuriy Parker [...] GLUCOSE SCREEN 2020-10-16 18:39:00 BanerjeeDarryl betancourt MD on POC GLUCOSE SCREEN 2020-10-16 11:19:00 Darryl Banerjee MD on PROTHROMBIN TIME 2020-10-16 09:10:00 Yuriy Parker [...] rson BLOOD UREA NITROGEN 2020-10-16 09:10:00 Yuriy Parker MD ELECTROLYTE PANEL 2020-10-16 09:10:00 Yuriy Parker [...] MD RATE CALCIUM LEVEL TOTAL 2020-10-15 09:44:00 uYriy Parker MD HEPATITIS B SURFACE AG 2020-10-15 [...] PRBC PRODUCT READY FOR 2020-10-14 10:07:00 Darryl Banerjee MD ENGINEERING TECHNOLOGIST PROTHROMBIN TIME 2020-10-14 09:11:00 Yuriy Parker MD [...] GLUCOSE SCREEN 2020-10-13 11:13:00 Darryl Banerjee MD Herman on PROTHROMBIN TIME 2020-10-13 07:21:00 Yuriy Parker [...] UREA NITROGEN 2020-10-13 07:21:00 Robyn Priest MD rsaldo ELECTROLYTE PANEL 2020-10-13 07:21:00 Robyn Priest MD on SERUM CREATININE 2020-10-13 07:21:00 Robyn Priest MDo n .GLOMERULAR FILTRATION 2020-10-13 07:21:00 Robyn Priest MD nderson RATE CALCIUM LEVEL TOTAL 2020-10-13 07:21:00 Robyn Priest MD Jay rson XR CHEST 1 VW PORTABLE 2020-10-13 07:17:52 Yuriy Parker MD POC GLUCOSE SCREEN 2020-10-13 04:57:00 Darryl Banerjee MD on XR ABDOMEN 1 VW PORTABLE 2020-10-13 03:29:00 Kevin Hernandez MD POC GLUCOSE SCREEN 2020-10-12 22:53:00 Alba Puga MDson POC GLUCOSE SCREEN 2020-10-12 16:45:00 Alba Puga MD LACTIC ACID, VENOUS 2020-10-12 13:24:00 Chano Willams MD Dereck son POC GLUCOSE SCREEN 2020-10-12 10:59:00 Alba Puga MD ARTERIAL BLOOD GAS 2020-10-12 09:48:00 Kevin Hernandez MD on XR CHEST 1 VW PORTABLE 2020-10-12 06:38:14 Yuriy Parker MD LACTIC ACID, VENOUS 2020-10-12 06:28:00 Chano Willams MD Dereck [facility] PROTHROMBIN TIME 2020-10-12 06:28:00 Yuriy Parker MD And erson APTT 2020-10-12 06:28:00 Yuriy Parker MD Jay rson HEPATIC FUNCTION PANEL 2020-10-12 06:28:00 Yuriy Parker MD COMPLETE BLOOD COUNT W/ 2020-10-12 06:28:00 Yuriy Parker MD INDICES VANCOMYCIN LEVEL RANDOM 2020-10-12 06:28:00 Gerarod Krishnan MD A nderson COMPREHENSIVE METABOLIC 2020-10-12 [...] SERUM CREATININE 2020-10-12 06:28:00 Robyn Priest MD Andprabhjoto n .GLOMERULAR FILTRATION 2020-10-12 06:28:00 Robyn Priest MDrson RATE CALCIUM LEVEL TOTAL 2020-10-12 06:28:00 Robyn Priest MD Jay rson POC GLUCOSE SCREEN 2020-10-12 05:23:00 Alba Puga MD TRANSFUSE RED BLOOD CELLS 2020-10-12 01:40:00 Kiara Tijerina MD LACTIC ACID, VENOUS 2020-10-11 23:06:00 Chano Willams MD Dereck son POC GLUCOSE SCREEN 2020-10-11 22:21:00 Alba Puga MD PREPARE RBC 2020-10-11 20:51:00 Kiara Tijerina MD on PRBC PRODUCT READY FOR 2020-10-11 20:51:00 Alba Puga ENGINEERING TECHNOLOGIST COMPLETE BLOOD COUNT W/ 2020-10-11 20:28:00 Kiara Tijerina DIFFERENTIAL URINALYSIS WITH 2020-10-11 20:28:00 Shraddha Nunn MD MICROSCOPIC IF INDICATED NT PRO BNP 2020-10-11 20:28:00 Alba Puga MD Dereck son Results CBC 2020-10-11 20:28:00 Kiara Tijerina MD on MANUAL DIFFERENTIAL 2020-10-11 20:28:00 Kiara Tijerina MD URINALYSIS MICROSCOPIC 2020-10-11 20:28:00 Timothy oTrres MD POC GLUCOSE SCREEN 2020-10-11 16:45:00 Alba Puga MD LACTIC ACID, VENOUS 2020-10-11 14:11:00 Chano Willams MD Dereck son TYPE AND SCREEN 2020-10-11 11:31:00 Yuriy Parker MD Jay rson ABORH 2020-10-11 11:31:00 Karyn Andre MD Dereck son ANTIBODY SCREEN 2020-10-11 11:31:00 Karyn Andre MD Dereck son CLOT EXPIRATION DATE 2020-10-11 11:31:00 Karyn Andre MD TMP INTERPRETATION 2020-10-11 11:31:00 Karyn Andre MDson ANTIBODY SCREEN NEGATIVE TMP CROSSMATCH 2020-10-11 11:31:00 [...] SERUM CREATININE 2020-10-11 06:29:00 Robyn Priest MD Andprabhjoto n .GLOMERULAR FILTRATION 2020-10-11 06:29:00 Robyn Priest MD nderson RATE CALCIUM LEVEL TOTAL 2020-10-11 06:29:00 Robyn Priest MD Jay rson ARTERIAL BLOOD GAS 2020-10-11 06:29:00 Bailey Marshall MD Jay rson POC GLUCOSE SCREEN 2020-10-11 04:48:00 Alba Puga MD POC GLUCOSE SCREEN 2020-10-10 23:30:00 Alba Puga MD XR CHEST 1 VW POST IMPLANT 2020-10-10 20:06:00 Alba Puga MD POC GLUCOSE SCREEN 2020-10-10 16:51:00 Alba Puga MD LACTIC ACID, VENOUS 2020-10-10 15:01:00 Chano Willams MD Dereck son POC GLUCOSE SCREEN 2020-10-10 10:59:00 Alba Puga MD XR CHEST 1 VW PORTABLE 2020-10-10 06:41:13 [...] MD ELECTROLYTE PANEL 2020-10-10 06:31:00 Chano Willams MDo n SERUM CREATININE 2020-10-10 06:31:00 Chano Willams MD [...] ELECTROLYTE PANEL 2020-10-09 13:38:00 Beau Reina MD SERUM CREATININE 2020-10-09 13:38:00 Beau Reina MD .GLOMERULAR FILTRATION 2020-10-09 13:38:00 Beua Reina MD RATE CALCIUM IONIZED, VENOUS 2020-10-09 13:38:00 Beau Reina MD nderson POC GLUCOSE SCREEN 2020-10-09 10:28:00 Alba Puga MD TRANSFUSE RED BLOOD CELLS 2020-10-09 10:15:00 Robyn Priest PREPARE RBC 2020-10-09 08:56:00 Robyn Priest MD PRBC PRODUCT READY FOR 2020-10-09 08:56:00 Alba Puga ENGINEERING TECHNOLOGIST XR CHEST 1 VW PORTABLE 2020-10-09 08:24:00 Yuriy Parker MD LACTIC ACID, VENOUS 2020-10-09 07:36:00 Chano Willams MD HEPATITIS B SURFACE 2020-10-09 07:36:00 Shraddha Nunn MD Dereckedel kim ANTIGEN, SERUM PROTHROMBIN TIME 2020-10-09 07:36:00 Yuriy Parker MD And erson APTT 2020-10-09 07:36:00 Yuriy [...] ACID, VENOUS 2020 13:19:00 Chano Willams MD BASIC METABOLIC PANEL, 2020 13:19:00 Shraddha Nunn MD CALCIUM IONIZED CALCIUM LEVEL TOTAL 2020 13:19:00 Shraddha Nunn MD PHOSPHORUS LEVEL 2020 13:19:00 Shraddha Nunn MD MAGNESIUM LEVEL 2020 13:19:00 Shraddha Nunn MD ARTERIAL BLOOD GAS 2020 13:19:00 Shraddha Nunn MD on ABORH 2020 13:19:00 Karyn Andre MD ANTIBODY SCREEN 2020 13:19:00 Karyn Andre MD Dereck julio CALCIUM IONIZED, VENOUS 2020 13:19:00 Rigo [...] MANUAL DIFFERENTIAL 2020 13:19:00 Beau Reina MD [facility] TMP INTERPRETATION 2020 13:19:00 Karyn Andre MD ANTIBODY SCREEN NEGATIVE CLOT EXPIRATION DATE 2020 13:19:00 Karyn Andre MD TMP CROSSMATCH 2020 13:19:00 Karyn Andre MD [facility] INTERPRETATION POC GLUCOSE SCREEN 2020 11:00:00 Alba [...] Rigo Orantes MD GLUCOSE LEVEL 2020 05:52:00 Riog Orantes MD Jay rson BLOOD UREA NITROGEN [...] POC GLUCOSE SCREEN 2020 04:57:00 Alba Puga MDson POC GLUCOSE SCREEN 2020 03:20:00 Alba Puga MDson POC GLUCOSE SCREEN 2020 02:13:00 Alba Puga MDson POC GLUCOSE SCREEN 2020 01:05:00 Alba Puga MD An harpal POC GLUCOSE SCREEN 2020-10-07 23:26:00 Alba Puga MD POC GLUCOSE SCREEN 2020-10-07 22:20:00 Alba Puga MD LACTIC ACID, VENOUS 2020-10-07 20:37:00 Chano Willams MD BASIC METABOLIC PANEL, 2020-10-07 20:37:00 Shraddha Nunn MD CALCIUM IONIZED CALCIUM LEVEL TOTAL 2020-10-07 20:37:00 [facility] PHOSPHORUS LEVEL 2020-10-07 20:37:00 Shraddha Nunn MD [...] MD LACTIC ACID, VENOUS 2020-10-07 13:35:00 Chano Willams MD BASIC METABOLIC PANEL, 2020-10-07 13:35:00 Shraddha Nunn [...] MD ARTERIAL BLOOD GAS 2020-10-07 05:53:00 Shraddha Nunners on PROTHROMBIN TIME 2020-10-07 05:53:00 Yuriy Parker [...] ACID, VENOUS 2020-10-06 21:52:00 Chano Willams MD Dereck julio BASIC METABOLIC PANEL, 2020-10-06 21:52:00 Shraddha Nunn [...] POC GLUCOSE SCREEN 2020-10-06 17:40:00 Alba Puga MDson POC GLUCOSE SCREEN 2020-10-06 16:14:00 Alba Puga MD derson COVID-19 (SARS-COV-2) 2020-10-06 15:33:00 Randolph Payne MD And erson PCR-ASYMPTOMATIC MC POC GLUCOSE SCREEN 2020-10-06 14:33:00 Alba Puga MD LACTIC ACID, VENOUS 2020-10-06 13:46:00 Chano Willams MD Dereck son BASIC METABOLIC PANEL, 2020-10-06 13:46:00 Shraddha Nunn [...] READY FOR 2020-10-06 08:12:00 Randolph Payne MD ENGINEERING TECHNOLOGIST POC GLUCOSE SCREEN 2020-10-06 06:34:00 Randolph Payne MD on LACTIC ACID, VENOUS 2020-10-06 06:05:00 Chano Willams MD Dereck son BASIC METABOLIC PANEL, 2020-10-06 06:05:00 Shraddha Nunn MD CALCIUM IONIZED CALCIUM LEVEL TOTAL 2020-10-06 06:05:00 Shraddha Nunn MD son PHOSPHORUS LEVEL 2020-10-06 06:05:00 Shraddha Nunn MD [...] LEVEL 2020-10-06 06:05:00 Rigo Orantes MD Jay rsaldo BLOOD UREA NITROGEN 2020-10-06 06:05:00 Rigo Orantes MD ELECTROLYTE PANEL 2020-10-06 06:05:00 Rigo Orantes MD SERUM CREATININE 2020-10-06 06:05:00 Rigo Orantes MD And erson .GLOMERULAR FILTRATION 2020-10-06 06:05:00 Rigo Orantes MD RATE ALBUMIN LEVEL 2020-10-06 06:05:00 Chano Willams MD ALKALINE PHOSPHATASE 2020-10-06 06:05:00 Chano Willams MD Jayelliott [facility] ALANINE AMINOTRANSFERASE 2020-10-06 06:05:00 Chano Willams MD ASPARTATE AMINOTRANSFERASE 2020-10-06 06:05:00 Chano Willams TOTAL PROTEIN 2020-10-06 06:05:00 Chano Willams MD FRACTIONATED BILIRUBIN 2020-10-06 06:05:00 Chano Willams MD POC GLUCOSE SCREEN 2020-10-06 04:40:00 Randolph Payne MD on POC GLUCOSE SCREEN 2020-10-06 03:36:00 Randolph Payne MD on POC GLUCOSE SCREEN 2020-10-06 02:23:00 Randolph Payne MD Herman on POC GLUCOSE SCREEN 2020-10-06 01:31:00 Randolph Payne MD Herman on POC GLUCOSE SCREEN 2020-10-06 00:09:00 Randolph Payne MD on POC GLUCOSE SCREEN 2020-10-05 23:21:00 Randolph Payne MD Herman on POC GLUCOSE SCREEN 2020-10-05 22:15:00 Randolph Payne MD on LACTIC ACID, VENOUS 2020-10-05 21:09:00 Chano Willams MD Dereck son BASIC METABOLIC PANEL, 2020-10-05 21:09:00 Shraddha Nunn MD CALCIUM IONIZED CALCIUM LEVEL TOTAL 2020-10-05 21:09:00 Shraddha Nunn MD Dereck [facility] PHOSPHORUS LEVEL 2020-10-05 21:09:00 Shraddha Nunn MD [...] ACID, VENOUS 2020-10-05 13:48:00 Chano Willams MD Dereckedel kim BASIC METABOLIC PANEL, 2020-10-05 13:48:00 Shraddha Nunn MD CALCIUM IONIZED CALCIUM LEVEL TOTAL 2020-10-05 13:48:00 Shraddha Nunn MD Dereckedel kim PHOSPHORUS LEVEL 2020-10-05 13:48:00 Shraddha Nunn MD MAGNESIUM LEVEL 2020-10-05 13:48:00 Shraddha Nunn MD ARTERIAL BLOOD GAS 2020-10-05 13:48:00 Shraddha Nunn MD on CALCIUM IONIZED, VENOUS 2020-10-05 13:48:00 Rigo Orantes MD GLUCOSE LEVEL 2020-10-05 13:48:00 Rigo Orantes MD Jay rson BLOOD UREA NITROGEN 2020-10-05 13:48:00 Rigo Orantes MD ELECTROLYTE PANEL 2020-10-05 13:48:00 Rigo Orantes MD SERUM CREATININE 2020-10-05 13:48:00 Rigo Orantes MD And erson .GLOMERULAR FILTRATION 2020-10-05 13:48:00 Rigo Orantes MD RATE POC GLUCOSE SCREEN 2020-10-05 10:58:00 Randolph Payne MD on BASIC METABOLIC PANEL, 2020-10-05 09:55:00 Bailey Marshall MD CALCIUM IONIZED MAGNESIUM LEVEL 2020-10-05 09:55:00 Bailey Marshall MD Andprabhjoto n PHOSPHORUS LEVEL 2020-10-05 09:55:00 Bailey Marshall MD Herman on GLUCOSE LEVEL 2020-10-05 09:55:00 Bailey Marshall MD Andprabhjoto n BLOOD UREA NITROGEN 2020-10-05 09:55:00 Bailey Marshall MD And erson ELECTROLYTE PANEL 2020-10-05 09:55:00 Bailey Mrashall MD Dereck son SERUM CREATININE 2020-10-05 09:55:00 Bailey Marshallers on .GLOMERULAR FILTRATION 2020-10-05 09:55:00 Bailey Marshall MD RATE CALCIUM IONIZED, VENOUS 2020-10-05 09:55:00 Bailey Marshall MD XR CHEST 1 VW PORTABLE 2020-10-05 08:47:48 Yuriy Parker MD TYPE AND SCREEN 2020-10-05 08:40:00 Yuriy Parker MD Jay rson ABORH 2020-10-05 08:40:00 Karyn Andre MD [...] ALKALINE PHOSPHATASE 2020-10-05 06:43:00 Chano Willams MD rsaldo ALANINE AMINOTRANSFERASE 2020-10-05 06:43:00 Chano Willams MD ASPARTATE AMINOTRANSFERASE 2020-10-05 06:43:00 Chano Willams TOTAL PROTEIN 2020-10-05 06:43:00 Chano Willams MD FRACTIONATED BILIRUBIN 2020-10-05 06:43:00 Chano Willams MDson POC GLUCOSE SCREEN 2020-10-05 04:22:00 Randolph Payne MD on POC GLUCOSE SCREEN 2020-10-04 22:35:00 Randolph Payne MD Herman on TRANSFUSE PLATELETS 2020-10-04 22:15:00 Cecelia Ley MDrson TMP EXCEPTION 2020-10-04 21:45:00 Randolph Payne MD LACTIC ACID, VENOUS 2020-10-04 21:24:00 Chano Willams MD Dereck son ARTERIAL BLOOD GAS 2020-10-04 21:24:00 Shraddha Nunners on BASIC METABOLIC PANEL, 2020-10-04 21:24:00 Cecelia Ley CALCIUM IONIZED PHOSPHORUS LEVEL 2020-10-04 21:24:00 Cecelia Ley MD Jay rson GLUCOSE LEVEL 2020-10-04 21:24:00 Cec[facility] BLOOD UREA NITROGEN 2020-10-04 21:24:00 Cecelia Ley [...] MD BLOODCULTURE 2020-10-04 17:06:00 Ran Priest MD Dereck julio POC GLUCOSE SCREEN 2020-10-04 16:36:00 Randolph Payne [...] CALCIUM IONIZED, VENOUS 2020-10-04 13:38:00 Cory Hickman MDon GLUCOSE LEVEL 2020-10-04 13:38:00 Cory Hickman MD BLOOD UREA NITROGEN 2020-10-04 13:38:00 Cory Hickman MD [facility] ELECTROLYTE PANEL 2020-10-04 13:38:00 Cory Hickman MD SERUM CREATININE 2020-10-04 13:38:00 Cory Hickman MD .GLOMERULAR FILTRATION 2020-10-04 13:38:00 Cory Hickman MD RATE POC GLUCOSE SCREEN 2020-10-04 10:57:00 Randolph Payne MD on VRE CULTURE 2020-10-04 08:33:00 Yuriy Parker MD rson XR CHEST 1 VW PORTABLE 2020-10-04 06:27:00 Yuriy Parker MD LACTIC ACID, VENOUS 2020-10-04 06:05:00 Chano Willams MD Dereckedel kim BASIC METABOLIC PANEL, 2020-10-04 06:05:00 Shraddha Nunn [...] UREA NITROGEN 2020-10-04 06:05:00 Cory Hickman MD ELECTROLYTE PANEL 2020-10-04 06:05:00 Cory Hickman MD n SERUM CREATININE 2020-10-04 06:05:00 Cory Hickman [...] ELECTROLYTE PANEL 2020-10-03 21:07:00 Cory Hickman MD n SERUM CREATININE 2020-10-03 21:07:00 Cory Hickman MD .GLOMERULAR FILTRATION 2020-10-03 21:07:00 Cory Hickman MDson RATE HEPATITIS B SURFACE AG 2020-10-03 21:07:00 Rigo Orantes MD W/CONFIRM LACTIC ACID, VENOUS 2020-10-03 21:07:00 Chano Willamser julio BASIC METABOLIC PANEL, 2020-10-03 21:07:00 Shraddha Nunn [...] ACID, VENOUS 2020-10-03 13:51:00 Chano Willams MD [facility] BASIC METABOLIC PANEL, 2020-10-03 13:51:00 Shraddha Nunn MD CALCIUM IONIZED CALCIUM LEVEL TOTAL 2020-10-03 13:51:00 Shraddha Nunn MD Dereckedel kim PHOSPHORUS LEVEL 2020-10-03 13:51:00 Shraddha Nunn MD ARTERIAL BLOOD GAS 2020-10-03 13:51:00 Chano Willams MD on CALCIUM IONIZED, VENOUS 2020-10-03 13:51:00 Cory Hickman MDrson GLUCOSE LEVEL 2020-10-03 13:51:00 Cory Hickman MD BLOOD UREA NITROGEN 2020-10-03 13:51:00 Cory Hickman MD Dereck son ELECTROLYTE PANEL 2020-10-03 13:51:00 Cory Hickman MDo n SERUM CREATININE 2020-10-03 13:51:00 Cory Hickman MD .GLOMERULAR FILTRATION 2020-10-03 13:51:00 Cory Hickman MD RATE MAGNESIUM LEVEL 2020-10-03 13:51:00 Cory Hickman MD POC GLUCOSE SCREEN 2020-10-03 10:47:00 Randolph Payne MD on XR CHEST 1 VW PORTABLE 2020-10-03 06:41:19 Yuriy Parker MD LACTIC ACID, VENOUS 2020-10-03 05:42:00 Chano Willams MD Dereck julio BASIC METABOLIC PANEL, 2020-10-03 05:42:00 Shraddha Nunn MD CALCIUM IONIZED CALCIUM LEVEL TOTAL 2020-10-03 05:42:00 Shraddha Nunn MD son PHOSPHORUS LEVEL 2020-10-03 05:42:00 Shraddha Nunn MD [...] UREA NITROGEN 2020-10-03 05:42:00 Cory Hickman MD [facility] ELECTROLYTE PANEL 2020-10-03 05:42:00 Cory Hickman MD SERUM CREATININE 2020-10-03 05:42:00 Cory Hickman MD .GLOMERULAR FILTRATION 2020-10-03 05:42:00 Cory Hickman MD RATE ALBUMIN LEVEL 2020-10-03 05:42:00 Chano Willams MD ALKALINE PHOSPHATASE 2020-10-03 05:42:00 Chano Willams MD ALANINE AMINOTRANSFERASE 2020-10-03 05:42:00 Chano Willams MD ASPARTATE AMINOTRANSFERASE 2020-10-03 05:42:00 Chano Willams TOTAL PROTEIN 2020-10-03 05:42:00 Chano Willams MD FRACTIONATED BILIRUBIN 2020-10-03 05:42:00 Chano Willams MD POC GLUCOSE SCREEN 2020-10-03 04:49:00 Randolph Payneers on POC GLUCOSE SCREEN 2020-10-02 22:26:00 Randolph Payne MD Herman on LACTIC ACID, VENOUS 2020-10-02 21:29:00 Chano Willams MD BASIC METABOLIC PANEL, 2020-10-02 21:29:00 Shraddha Nunn MD CALCIUM IONIZED CALCIUM LEVEL TOTAL 2020-10-02 21:29:00 Shraddha Nunn MD PHOSPHORUS LEVEL 2020-10-02 21:29:00 Shraddha Nunn MD ARTERIAL BLOOD GAS 2020-10-02 21:29:00 Chano Willams MD on MAGNESIUM LEVEL 2020-10-02 21:29:00 Chano Willams MD CALCIUM IONIZED, VENOUS 2020-10-02 21:29:00 Cory Hickman MD nderson GLUCOSE LEVEL 2020-10-02 21:29:00 Cory Hickman MD BLOOD UREA NITROGEN 2020-10-02 21:29:00 Cory Hickman MD Dereck son ELECTROLYTE PANEL 2020-10-02 21:29:00 Cory Hickman MD [...] LEVEL TOTAL 2020-10-02 12:59:00 Shraddha Nunn MD son PHOSPHORUS LEVEL 2020-10-02 12:59:00 Shraddha Nunn MD ABORH 2020-10-02 12:59:00 Karyn Andre MD Dereck son ANTIBODY SCREEN 2020-10-02 12:59:00 Karyn Andre MD Dereck son CALCIUM IONIZED, VENOUS 2020-10-02 12:59:00 Cory Hickman MD nderson GLUCOSE LEVEL 2020-10-02 12:59:00 Cory Hickman MD BLOOD UREA NITROGEN 2020-10-02 12:59:00 Cory Hickman MD Dereck son ELECTROLYTE PANEL 2020-10-02 12:59:00 Cory Hickman MD SERUM CREATININE 2020-10-02 12:59:00 Cory Hickman MD .GLOMERULAR FILTRATION 2020-10-02 12:59:00 Cory Hickman MD derson RATE CLOT EXPIRATION DATE 2020-10-02 12:59:00 Karyn Andre MD TMP INTERPRETATION 2020-10-02 12:59:00 Karyn Adnre MD derson ANTIBODY SCREEN NEGATIVE POC GLUCOSE SCREEN 2020-10-02 10:41:00 Randolph Payne MD on XR CHEST 1 VW PORTABLE 2020-10-02 07:42:56 Yuriy Parker MD GENERAL LABORATORY ADD ON 2020-10-02 07:35:00 Lela oCrral MD TEST GENERAL LABORATORY ADD ON 2020-10-02 [...] UREA NITROGEN 2020-10-02 05:56:00 Cory Hickman MD [facility] ELECTROLYTE PANEL 2020-10-02 05:56:00 Cory Hickman MD SERUM CREATININE 2020-10-02 05:56:00 Cory Hickman MD .GLOMERULAR FILTRATION 2020-10-02 05:56:00 Cory Hickman MD RATE ALBUMIN LEVEL 2020-10-02 05:56:00 Chano Willams MD ALKALINE PHOSPHATASE 2020-10-02 05:56:00 Chano Willams MD ALANINE AMINOTRANSFERASE 2020-10-02 05:56:00 Chano Willams MD ASPARTATE AMINOTRANSFERASE 2020-10-02 05:56:00 Chano Willams TOTAL PROTEIN 2020-10-02 05:56:00 Chano Willams MD FRACTIONATED BILIRUBIN 2020-10-02 05:56:00 Chano Willams MD POC GLUCOSE SCREEN 2020-10-02 04:42:00 Randolph Payne MD on POC GLUCOSE SCREEN 2020-10-01 22:24:00 Randolph Payne MD Herman on LACTIC ACID, VENOUS 2020-10-01 21:48:00 Chano Willams MD [facility] BASIC METABOLIC PANEL, 2020-10-01 21:48:00 Shraddha Nunn MD CALCIUM IONIZED CALCIUM LEVEL TOTAL 2020-10-01 21:48:00 Shrdadha Nnun MD [facility] PHOSPHORUS LEVEL 2020-10-01 21:48:00 Shraddha Nunn MD ARTERIAL BLOOD GAS 2020-10-01 21:48:00 Chano Willams MD on MAGNESIUM LEVEL 2020-10-01 21:48:00 Chano Willams MD THYROID STIMULATING 2020-10-01 21:48:00 Jurgen Queen MD [facility] HORMONE FREE THYROXINE 2020-10-01 21:48:00 Jurgen Queen MD CALCIUM IONIZED, VENOUS 2020-10-01 21:48:00 Cory Hickman MD nderson GLUCOSE LEVEL 2020-10-01 21:48:00 Cory Hickman MD BLOOD UREA NITROGEN 2020-10-01 21:48:00 Cory Hickman MD Dereck [facility] ELECTROLYTE PANEL 2020-10-01 21:48:00 Cory Hickman MD [...] LEVEL TOTAL 2020-10-01 13:38:00 Shraddha Nunn MD PHOSPHORUS LEVEL 2020-10-01 13:38:00 Shraddha Nunn MD ARTERIAL BLOOD GAS 2020-10-01 13:38:00 Chano Willams MD on MAGNESIUM LEVEL 2020-10-01 13:38:00 Chano Willams MD CALCIUM IONIZED, VENOUS 2020-10-01 13:38:00 Cory Hickman MD nderson GLUCOSE LEVEL 2020-10-01 13:38:00 Cory Hickman MD BLOOD UREA NITROGEN 2020-10-01 13:38:00 Cory Hickman MD ELECTROLYTE PANEL 2020-10-01 13:38:00 Cory Hickman MD SERUM CREATININE 2020-10-01 13:38:00 Cory Hickman MD .GLOMERULAR FILTRATION 2020-10-01 13:38:00 Cory Hickman MDson RATE POC GLUCOSE SCREEN 2020-10-01 10:26:00 Randolph Payne MD on ARTERIAL BLOOD GAS 2020-10-01 06:43:00 Chano Willams MD on XR CHEST 1 VW PORTABLE 2020-10-01 05:54:00 Yuriy Parker MD LACTIC ACID, VENOUS 2020-10-01 05:47:00 Chano Willams MD CALCIUM LEVEL TOTAL 2020-10-01 05:47:00 Shraddha Nunn [...] BLOOD COUNT W/ 2020-10-01 05:47:00 Chano Willams MDrsaldo INDICES HEPATIC FUNCTION PANEL 2020-10-01 05:47:00 Yuriy Parker MD CALCIUM IONIZED, VENOUS 2020-10-01 05:47:00 Chano Willams MDrson GLUCOSE LEVEL 2020-10-01 05:47:00 Chano Willams MD BLOOD UREA NITROGEN 2020-10-01 05:47:00 Chano Willams MD son ELECTROLYTE PANEL 2020-10-01 05:47:00 Chano Willams MD Andprabhjoto n SERUM CREATININE 2020-10-01 05:47:00 Chano Willams MD [...] on EKG, 12-LEAD (PORTABLE) 2020-10-01 00:00:00 Yuriy Parker MD POC GLUCOSE SCREEN 2020-09-30 22:29:00 Randolph Payne MD on ARTERIAL BLOOD GAS 2020-09-30 21:54:00 Chano Willams MD on LACTIC ACID, VENOUS 2020-09-30 21:54:00 Chano Willamsedel kim COMPLETE BLOOD COUNT W/ 2020-09-30 21:54:00 Chano Willams MDon INDICES BASIC METABOLIC PANEL, 2020-09-30 21:54:00 Shraddha Nunn MD CALCIUM IONIZED CALCIUM LEVEL TOTAL 2020-09-30 21:54:00 Shraddha Nunn MD Dereck son PHOSPHORUS LEVEL 2020-09-30 21:54:00 Shraddha Nunn MD [...] AFB CULTURE W/ SMEAR 2020-09-30 21:25:00 Chano Willamse rson FUNGUS CULTURE 2020-09-30 21:25:00 Chano Willams MD LOWER RESPIRATORY CULTURE 2020-09-30 21:25:00 Chano Willams MD W/ GRAM STAIN PNEUMOCYSTIS JIROVECI 2020-09-30 21:25:00 Chano Willams MD And erson QUANT, BAL CYTOLOGY NON-[facility] CENTER ADMINISTRATOR 2020-09-30 21:17:00 Chano Willams MD INTERPRETATION XR CHEST 1 VW PORTABLE 2020-09-30 20:30:10 Chano Willams MD HEPATITIS B SURFACE 2020-09-30 18:36:00 Shraddha Nunn MD Dereckedel kim ANTIGEN, SERUM LACTIC ACID, VENOUS 2020-09-30 18:36:00 Chano Willams MD Dereck son HEPATITIS B SURFACE AG 2020-09-30 18:36:00 Cory Hickman MD W/CONFIRM WY INSERT NON-TUNNEL CV 2020-09-30 17:15:00 Chano Willams MD CATH WY CHG US GUIDE, VASCULAR 2020-09-30 17:15:00 Chano Willams MD ACCESS WY INSERT 2020-09-30 17:15:00 Chano Willams MD CATH,ART,CUTDOWN,SHORTTERM [...] Chano Willams MD .GLOMERULAR FILTRATION 2020-09-30 15:48:00 Chano Willams MD RATE CALCIUM IONIZED, VENOUS [...] CARDIAC PANEL 2020-09-30 07:54:00 Karyn Andre MD Dereck son VENOUS BLOOD GAS 2020-09-30 07:54:00 Karyn Andre [...] son ELECTROLYTE PANEL 2020-09-30 07:54:00 Chano Willams MD n SERUM CREATININE 2020-09-30 07:54:00 Chano Willams MD .GLOMERULAR FILTRATION 2020-09-30 07:54:00 Chano Willams MD RATE CALCIUM IONIZED, VENOUS 2020-09-30 07:54:00 Chano Willams MDrson ALBUMIN LEVEL 2020-09-30 07:54:00 Randolph Payne MD ALKALINE PHOSPHATASE 2020-09-30 07:54:00 Randolph Payne MD Jay rson ALANINE AMINOTRANSFERASE 2020-09-30 07:54:00 Randolph Payne MD ASPARTATE AMINOTRANSFERASE 2020-09-30 07:54:00 Randolph Payne TOTAL PROTEIN 2020-09-30 07:54:00 Randolph Payne MD FRACTIONATED BILIRUBIN 2020-09-30 07:54:00 Randolph Payne MD XR CHEST 1 VW PORTABLE 2020-09-30 06:08:59 Yuriy Parker MD POC GLUCOSE SCREEN 2020-09-30 04:38:00 Randolph Payne MD on POC GLUCOSE SCREEN 2020-09-29 22:06:00 Randolph Payne MD on CARDIAC PANEL 2020-09-29 20:28:00 Karyn Andre MD Dereck son BASIC METABOLIC PANEL, 2020-09-29 20:28:00 Chano Willams MD CALCIUM IONIZED MAGNESIUM LEVEL 2020-09-29 20:28:00 Chano Willams MD PHOSPHORUS LEVEL 2020-09-29 20:28:00 Chano Willams MD GLUCOSE LEVEL 2020-09-29 20:28:00 Chano Willams MD BLOOD UREA NITROGEN 2020-09-29 20:28:00 Chano Willams MD Dereck son ELECTROLYTE PANEL 2020-09-29 20:28:00 Chano Willams MD n SERUM CREATININE 2020-09-29 20:28:00 Chano Willams MD .GLOMERULAR FILTRATION 2020-09-29 20:28:00 Chano Willams MD RATE CALCIUM IONIZED, VENOUS 2020-09-29 20:28:00 Chano Willams MD FIBRINOGEN ACTIVITY 2020-09-29 19:30:00 Chano Willams MD Dereck son COMPLETE BLOOD COUNT W/ 2020-09-29 19:30:00 Chano Willams MD DIFFERENTIAL CALCIUM IONIZED, VENOUS 2020-09-29 19:30:00 Chano Willams MD Results CBC 2020-09-29 19:30:00 Chano Willams MD DIFFERENTIAL CANCEL 2020-09-29 19:30:00 Chano Willams MD Dereck son VENOUS BLOOD GAS 2020-09-29 17:13:00 Kayrn Andre MD Jay rson COMPLETE BLOOD COUNT W/ 2020-09-29 17:13:00 Chano Willams MDrson DIFFERENTIAL BASIC METABOLIC PANEL, 2020-09-29 17:13:00 Chano Willams MD CALCIUM IONIZED MAGNESIUM LEVEL 2020-09-29 17:13:00 Chano Willams MD PHOSPHORUS LEVEL 2020-09-29 17:13:00 Chano Willams MD CALCIUM IONIZED, VENOUS 2020-09-29 17:13:00 Chano Willams MDrson Results CBC 2020-09-29 17:13:00 Chano Willams MD GLUCOSE LEVEL 2020-09-29 17:13:00 Chano Willams MD BLOOD UREA NITROGEN 2020-09-29 17:13:00 Chano Willams MD Dereck son ELECTROLYTE PANEL 2020-09-29 17:13:00 Chano Willams MD n SERUM CREATININE 2020-09-29 17:13:00 Chano Willams MD .GLOMERULAR FILTRATION 2020-09-29 17:13:00 Chano Willams MD RATE DIFFERENTIAL CANCEL 2020-09-29 17:13:00 Chano Willams MD Dereck [facility] URINALYSIS WITH 2020-09-29 16:51:00 Bud Jarrett MD rsaldo MICROSCOPIC IF INDICATED Junior URINALYSIS MICROSCOPIC 2020-09-29 16:51:00 Bud Jarrett MD Junior ECHOCARDIOGRAM 2D LIMITED 2020-09-29 16:24:44 Karyn Andre MD - FOLLOW UP POC GLUCOSE SCREEN 2020-09-29 16:08:00 Randolph Payne MD on BASIC METABOLIC PANEL, 2020-09-29 13:18:00 Karyn Andre CALCIUM IONIZED CARDIAC PANEL 2020-09-29 13:18:00 Karyn Andre MD Dereck [facility] MAGNESIUM LEVEL 2020-09-29 13:18:00 Karyn Andre MD Dereck [facility] PHOSPHORUS LEVEL 2020-09-29 13:18:00 Karyn Andre MD rson HEPATIC FUNCTION PANEL 2020-09-29 13:18:00 Karyn Andre GLUCOSE LEVEL 2020-09-29 13:18:00 Karyn Andre MD Dereck julio BLOOD UREA NITROGEN 2020-09-29 13:18:00 Karyn Andre MD nderson ELECTROLYTE PANEL 2020-09-29 13:18:00 Karyn Andre MD And erson SERUM CREATININE 2020-09-29 13:18:00 Karyn Andre MD Jay rson .GLOMERULAR FILTRATION 2020-09-29 13:18:00 Karyn Andre RATE ALBUMIN LEVEL 2020-09-29 13:18:00 Karyn Andre MD Dereck julio ALKALINE PHOSPHATASE 2020-09-29 13:18:00 Karyn Andre MD ALANINE AMINOTRANSFERASE 2020-09-29 13:18:00 Karyn Andre MD ASPARTATE AMINOTRANSFERASE 2020-09-29 13:18:00 Karyn Andre MD TOTAL PROTEIN 2020-09-29 13:18:00 Karyn Andre MD Dereck julio FRACTIONATED BILIRUBIN 2020-09-29 13:18:00 Karyn Andre BLOODCULTURE 2020-09-29 13:10:00 Karyn Andre MD Dereck julio TYPE AND SCREEN 2020-09-29 13:10:00 Karyn Andre MD Dereckedel kim ABORH 2020-09-29 13:10:00 Karyn Andre MD Dereck julio ANTIBODY SCREEN 2020-09-29 13:10:00 Karyn Andre MD Dereckedel kim CLOT EXPIRATION DATE 2020-09-29 13:10:00 Karyn Andre MD TMP INTERPRETATION 2020-09-29 13:10:00 Karyn Andre MD ANTIBODY SCREEN NEGATIVE RESPIRATORY VIRAL PANEL + 2020-09-29 12:21:00 Marty Jarrett MD COVID-19, NASOPHARYNGEAL Junior SWAB BLOODCULTURE 2020-09-29 11:30:00 Karyn Andre MD Dereck julio ARTERIAL BLOOD GAS 2020-09-29 11:26:00 Karyn Andre MD XR CHEST 1 VW 2020-09-29 11:21:00 [facility] POC GLUCOSE SCREEN 2020-09-29 11:15:00 Bud Jarrett MD Junior ZHOU CULTURE 2020-09-29 11:07:00 Karyn Andre MD Dereck [...] Blake MD Herman on FL CHEMO INTO DATA ARCHITECT MANAGER W/SPIN 2020-09-22 14:44:18 Estella Priest MD [facility] CELL COUNT W/ DIFF 2020-09-22 14:24:00 Kristina Blake MD Herman on CEREBROSPINAL FLUID PROTEIN CEREBROSPINAL 2020-09-22 14:24:00 Kristina Blake MD And erson FLUID GLUCOSE CEREBROSPINAL 2020-09-22 14:24:00 Kristina Blake MD And erson FLUID BETA 2 MICROGLOBULIN CSF 2020-09-22 14:24:00 Kristina Blake MD HP FC LYMPHOMA B 2020-09-22 14:24:00 Estella Priest MD Andcharles archuleta COLLECTION, NONBLOOD HP FC FLOW CYTOMETRY BLOOD 2020-09-22 14:24:00 Estella Priest MD COLLECTION HP FC LYMPHOMA B 2020-09-22 14:24:00 Estella Priest MD Andcharles archuleta KAPPA/LAMBDA INTERPRETATION AND REPORT CYTOLOGY NON-[facility] CENTER ADMINISTRATOR 2020-09-22 14:22:00 Rosario Lund MD Herman on [...] ALBUMIN LEVEL 2020-09-22 09:13:00 Kimberlee Blackmon MD Ajy rson CALCIUM LEVEL TOTAL 2020-09-22 09:13:00 Kimberlee Blackmon MD MAGNESIUM LEVEL 2020-09-22 09:13:00 Kimberlee Blackmon MD Jay rsaldo ALANINE AMINOTRANSFERASE 2020-09-22 09:13:00 Kimberlee Blackmon MD ASPARTATE AMINOTRANSFERASE 2020-09-22 09:13:00 Kimberlee Blackmon MD ALKALINE PHOSPHATASE 2020-09-22 09:13:00 Kimberlee Blackmon MD HEPATITIS BE ANTIBODY, 2020-09-22 09:13:00 Swapnil Rose MD An derson SERUM HEPATITIS BE ANTIGEN, 2020-09-22 09:13:00 Swapnil Rose MD And bijan SERUM HEPATITIS B CORE ANTIBODY 2020-09-22 09:13:00 Swapnil Rose MD HEPATITIS B SURFACE 2020-09-22 09:13:00 Swapnil Rose MD Dereck son ANTIBODY, SERUM Results CBC 2020-09-22 09:13:00 Kimberlee Blackmon MD Jay rsaldo MANUAL DIFFERENTIAL 2020-09-22 09:13:00 Kimberlee Blackmon MD SERUM CREATININE 2020-09-22 09:13:00 Kimberlee Blackmon MD And bijan .GLOMERULAR FILTRATION 2020-09-22 09:13:00 Kimberlee Blackmon MD [...] Peyton Santana MD on APTT 2020-09-21 06:26:00 Peytno Santana MD n Results CBC 2020-09-21 06:26:00 Kimberlee Blackmon MD Jay rson MANUAL DIFFERENTIAL 2020-09-21 06:26:00 Kimberlee Blackmon MD SERUM CREATININE 2020-09-21 06:26:00 Kimberlee Blackmon MD And erson .GLOMERULAR FILTRATION 2020-09-21 06:26:00 Kimberlee Blackmon MD RATE ANION GAP 2020-09-21 06:26:00 Kimberlee Blackmon MD Jay rson POC GLUCOSE SCREEN 2020-09-21 04:50:00 Kristina Blake MD on POC GLUCOSE SCREEN 2020-09-21 02:40:00 Kristina Blake MD Herman on EKG, 12-LEAD (PORTABLE) 2020-09-21 00:00:00 Mary [...] CREATININE 2020-09-20 21:41:00 Jose Luis Martínez MD Anderso n .GLOMERULAR FILTRATION 2020-09-20 21:41:00 Jose Luis Martínez MD nderson RATE POC GLUCOSE SCREEN 2020-09-20 19:35:00 Kristina Blake MD Herman on POC GLUCOSE SCREEN 2020-09-20 13:11:00 Kristina [...] NeymarKimberlee richter MD MAGNESIUM LEVEL 2020-09-20 09:53:00 NeymarKimberlee richter MD Jay rson ALANINE AMINOTRANSFERASE 2020-09-20 09:53:00 NeymarKimberlee richter MD ASPARTATE AMINOTRANSFERASE 2020-09-20 09:53:00 Kimberlee Blackmon MD ALKALINE PHOSPHATASE 2020-09-20 09:53:00 Kimberlee Blackmon MD TYPE AND SCREEN 2020-09-20 09:53:00 Vania Pascual MD Herman on ABORH 2020-09-20 09:53:00 Kristina Blake MD [...] MD Jay rson CHLORIDE LEVEL 2020-09-19 09:42:00 NeymarKimberlee richter MD Jay rson CARBON DIOXIDE LEVEL 2020-09-19 09:42:00 Kimberlee Blackmon MD BLOOD UREA NITROGEN 2020-09-19 09:42:00 NeymarKimberlee richter MD SERUM CREATININE 2020-09-19 09:42:00 NeymarKimberlee richter MD And erson GLUCOSE, RANDOM 2020-09-19 09:42:00 Kimberlee Blackmon MD Jay rson LACTATE DEHYDROGENASE 2020-09-19 09:42:00 NeymarKimberlee richter URIC ACID 2020-09-19 09:42:00 NeymarKimberlee richter MD Jay rson PHOSPHORUS LEVEL 2020-09-19 09:42:00 NeymarKimberlee richter MD And erson FRACTIONATED BILIRUBIN 2020-09-19 09:42:00 NeymarKimberlee richter MD ALBUMIN LEVEL 2020-09-19 09:42:00 NeymarKimberlee richter MD Jay rson CALCIUM LEVEL TOTAL 2020-09-19 [...] CBC 2020-09-19 09:42:00 Kimberlee Blackmon MD Jay rson MANUAL DIFFERENTIAL 2020-09-19 09:42:00 Kimberlee Blackmon MD SERUM CREATININE 2020-09-19 09:42:00 Kimberlee Blakcmon MD And erson .GLOMERULAR FILTRATION 2020-09-19 09:42:00 Kimberlee Blackmon MD RATE ANION GAP 2020-09-19 09:42:00 Kimberlee Blackmon MD Jay rson TMP HIV 1/2 AG&AB PATH 2020-09-19 [...] NITROGEN 2020-09-18 19:25:00 Jose Luis Martínez MD Jay rson MAGNESIUM LEVEL 2020-09-18 19:25:00 Jose Luis [...] SERUM POC GLUCOSE SCREEN 2020-09-18 19:24:00 Kristina Blakeers on HEPATITIS B CORE ANTIBODY 2020-09-18 15:37:00 [...] Blackmon MD DIFFERENTIAL SODIUM LEVEL 2020-09-18 06:24:00 NeymarKimberlee richter MD Jay rson POTASSIUM LEVEL 2020-09-18 06:24:00 NeymarKimberlee richter MD Jay rson CHLORIDE LEVEL 2020-09-18 06:24:00 Kimberlee Blackmon MD Jay rson CARBON DIOXIDE LEVEL 2020-09-18 06:24:00 Kimberlee Blackmon MD BLOOD UREA NITROGEN 2020-09-18 06:24:00 Kimberlee Blackmon MD SERUM CREATININE 2020-09-18 06:24:00 Kimberlee Blackmon MD And erson GLUCOSE, RANDOM 2020-09-18 06:24:00 NeymarKimberlee richter MD Jay rson LACTATE DEHYDROGENASE 2020-09-18 06:24:00 Kimberlee Blackmon URIC ACID 2020-09-18 06:24:00 NeymarKimberlee richter MD Jay rson PHOSPHORUS LEVEL 2020-09-18 06:24:00 [...] BLOOD COUNT W/ 2020-09-17 19:19:00 Kristina Blake MDon DIFFERENTIAL COMPREHENSIVE METABOLIC 2020-09-17 19:19:00 Kristina Blake [...] Kristina Blake MD SERUM CREATININE 2020-09-17 19:19:00 Kirstina Blake MD .GLOMERULAR FILTRATION 2020-09-17 19:19:00 Kristina Blake MD RATE CALCIUM LEVEL TOTAL 2020-09-17 19:19:00 Kristina Blake [...] ABORH TYPE 2020-09-17 19:16:00 Kristina Blake MD Herman on INFLUENZA A/B + COVID-19 2020-09-17 18:42:00 Nolvia Robison MD ASYMPTOMATIC-L EKG, 12-LEAD (PORTABLE) 2020-09-17 00:00:00 Kimberlee Blackmon MD PETCT INITIAL TREATMENT 2020-09-16 16:58:09 Jesenia Mays MD STRATEGY [place] POC GLUCOSE SCREEN 2020-09-16 15:12:00 Jesenia Mays MD Jay rson Tony US HEAD NECK SOFT TISSUE 2020-09-10 19:51:20 Jesenia Mays US FINE NEEDLE ASPIRATION 2020-09-10 19:51:20 Jesenia Mays MD US GUIDED SOFT TISSUE 2020-09-10 19:51:20 Jesenia Mays MD nderson BIOPSY [place] PATHOLOGY BIOPSY 2020-09-10 18:52:00 Jesenia Maysers on INTERPRETATION Tony CYTOLOGY IMAGE-GUIDED FNA 2020-09-10 17:14:00 Jesenia Mays MD INTERPRETATION Tony HP CYTOGENETICS BLOOD 2020-09-10 16:53:00 Nimo Keita [...] HEMOGLOBIN A1C 2020-09-09 16:05:00 Jesenia Mays MD n Tony HEPATITIS C VIRUS AB 2020-09-09 16:05:00 Jesenia Mays MD derson SCREEN W/REFLEX HCV PCR [place] HEPATITIS C VIRUS RNA 2020-09-09 16:05:00 Jesenia Mays MD DETECT/QUANT, SERUM [place] COVID-19 (SARS-COV-2) 2020-09-05 18:36:00 Sheng Alfaro MD And bijan PCR-ASYMPTOMATIC COVID-19 (ID NOW RAPID 2020-01-29 16:36:00 Nicole Cheek [facility] TESTING) Medical Branch DME/SUPPLY JUSTIFICATION 2019-09-19 05:01:00 Doctor Unassigned, No [facility] DME/SUPPLY JUSTIFICATION 2019-07-17 05:01:00 Doctor Unassigned, No [facility] Repair of knee collateral 1973-03-27 00:00:00 Me morial Garnett ligaments Plan of Care Planned Activity Planned Date Details Comments Source Future Scheduled Test 1960 00:00:00 COVID-19 Vaccination MD Barrientos (1) [code = COVID-19 Vaccination (1)] Encounters Start End Encounter Admission Attending Care Care Encounter Source Date/Time Date/Time Type Type Clinicians Facility Department ID 2021-04-22 Outpatient [id number] ENC[facility] JAZMÍN ENCPL 12:42:06 0813 2021-04-22 Outpatient 3 [id number] ENCPL REF ENCPL 12:40:14 0809 2021-04-22 Outpatient 3 [id number] ENCPL PUL ENCPL 12:39:34 0807 2021-04-22 Outpatient [id number] ENC[facility] REF ENCPL 12:38:17 0804 2021-04-22 Outpatient 3 [id number] ENC[facility] REF ENCPL 12:38:06 0803 2021-04-21 [facility] 13:20:[facility] Ray [id number] 2021-04-21 Out[facility] Veliz, [facility] 13:18:24 Ray [id number] [facility] 2021-04-21 Outpatient Veliz, [facility] 12:28:07 Ray [id number] [facility] 2021-04-21 Outpatient [facility] 11[facility]59:29 [id number] [facility] 2021-01-02 Inpatient RASLAN, [facility] Surgery [id number] [facility] 11:38:46 NINA 2021-01-02 Inpatient ER NASSER, [facility] Cardiac ICU [id number] 11:38:15 [facility] 2020-10-27 Inpatient EL BLAKE, JUDITH WONG [id number] 11:50:29 [facility] Herman archuleta 2020-10-19 Outpatient SYSTEM, JUDITH WONG [id number] 07:44:13 PROVIDER Herman o geremias 2020-09-25 Outpatient JUDITH ADEN Thoracic [id number] 08:45:30 BETH archuleta 2020-09-03 Outpatient SYSTEM, JUDITH WONG [id number] 11:18:01 PROVIDER Herman o n 2021-03-16 2021-03-16 Outpatient CHRISTIANSON, MDA MDA [id number] MD 12:38:06 12:38:06 INDER Harden so n 2020-12-23 2020-12-23 Outpatient SARAH, MDA MDA [id number] MD 06:42:40 09:45:47 ULISSES pemberton n 2020-12-16 2020-12-16 [facility] [id number] MD 07:00:55 07:00:55 ULISSES Sutton o n 2020-12-07 2020-12-07 Outpatient FATMATA, MDA MDA [id number] MD 23:59:00 23:59:00 JACOB bishop n 2020-12-07 2020-12-07 [facility] MDA [id number] MD 09:46:41 09:46:41 ULISSES pemberton n 2020-12-03 2020-12-03 Outpatient [facility] MDA MDA [id number] MD 10:20:00 23:59:00 Herman ODE n 2020-12-02 2020-12-02 Outpatient [facility], MDA MDA [id number] MD 06:34:53 10:36:59 ULISSES archuleta 2020-11-25 2020-11-25 [facility] [id number] MD 06:42:26 09:44:59 ULISSES pemberton n 2020-11-16 2020-11-16 Outpatient NEYMAR, MDA MDA [id number] MD 07:57:28 12:22:47 KIMBERLEE archuleta 2020-09-29 2020-11-14 Inpatient ER ESTEFANIA MDA Lymphoma/My [id number] MD 05:35:00 14:35:00 Miguel BORJAS 2020-11-10 2020-11-10 Inpatient EL BLAKE, MDA MDA [id number] MD 07:27:45 07:36:25 KRISTINA Harden so n 2020-11-10 2020-11-10 Inpatient EL BLAKE, MDA MDA [id number] MD 05:05:38 05:30:57 KRISTINA Harden so n 2020-11-03 2020-11-03 Inpatient EL SARAH, MDA MDA [id number] MD 17:09:05 17:11:49 ULISSES Sutton o n 2020-11-02 2020-11-02 Inpatient EL STANFORD, MDA MDA [id number] MD 09:12:55 11:22:21 CJ Warders o n 2020-10-29 2020-10-29 Inpatient EL HAYDEN, MDA MDA [id number] MD 19:40:38 20:05:18 YOLY Dereck so n 2020-10-29 2020-10-29 Inpatient EL SARAH, MDA MDA [id number] MD 01:03:56 01:04:07 TRI Herman o n 2020-10-27 2020-10-27 Inpatient EL SARAH, MDA MDA [id number] MD 13:50:26 13:50:31 [facility] Herman o n 2020-10-26 2020-10-26 Inpatient EL SARAH, MDA MDA [id number] MD 14:48:05 14:48:09 [facility] Herman o n 2020-10-22 2020-10-22 Inpatient EL RANDOLPH PAYNE MDA MDA [id number] MD 20:34:15 21:15:34 Herman o n 2020-10-15 2020-10-15 Inpatient EL SARAH, MDA MDA [id number] MD 14:20:34 14:20:37 TRI Herman o n 2020-10-13 2020-10-13 Inpatient EL SARAH, MDA MDA [id number] MD 13:41:07 13:41:09 [facility] Herman o n 2020-10-10 2020-10-10 Inpatient EL AMANDA, MDA MDA [id number] MD 14:30:49 14:34:36 KIARA Warder so n 2020-10-05 2020-10-05 Inpatient EL FANG, MDA MDA [id number] MD 21:05:33 21:30:04 MIGDALIA Dereck so n 2020-09-30 2020-09-30 Inpatient EL FIDENCIO, MDA MDA [id number] MD 20:34:19 21:12:40 JURGEN Warders o n 2020-09-30 2020-09-30 Inpatient EL CARLOS, MDA MDA [id number] 16:35:16 16:35:21 CHANO archuleta 2020-09-30 2020-09-30 Inpatient EL RANDOLPH PAYNE MDA MDA [id number] 14:38:47 15:31:40 Herman archuleta 2020-09-30 2020-09-30 Inpatient EL CARLOS, MDA MDA [id number] 14:21:19 15:31:37 CHANO archuleta 2020-09-17 2020-09-23 Inpatient EL HAYDEN, MDA Lymphoma/My [id number] 12:22:00 17:54:00 [facility] elliott Harden so n 2020-09-23 2020-09-23 Inpatient EL BLAKE, MDA MDA [id number] 17:09:44 17:43:35 [facility] Dereck so n 2020-09-23 2020-09-23 Inpatient EL BLAKE, MDA MDA [id number] 17:24:14 17:24:18 [facility] Harden so n 2020-09-23 2020-09-23 Inpatient EL CEM, MDA MDA [id number] 14:55:27 15:19:17 ESTELLA archuleta 2020-09-18 2020-09-18 Inpatient EL SARAH, MDA MDA [id number] 20:07:46 20:07:49 ULISSES archuleta 2020-09-17 2020-09-17 Inpatient EL BETH, MDA MDA [id number] 22:31:02 23:36:29 KRISTI archuleta 2020-09-17 2020-09-17 Inpatient EL HAYDEN, MDA MDA [id number] 19:51:09 19:51:13 KRISTINA Harden so geremias 2020-09-16 2020-09-16 Outpatient EL SARAH, MDA MDA [id number] 12:54:09 16:41:32 ULISSES archuleta 2020-09-16 2020-09-16 Outpatient EL ALFARO , MDA MDA [id number] 10:58:41 10:58:41 SHENG archuleta 2020-09-16 2020-09-16 Outpatient EL ELINOR, MDA MDA [id number] 09:08:16 09:08:16 JESENIA archuleta 2020-09-15 2020-09-15 Outpatient RACHEL ARRIOLA, MDA MDA [id number] 18:51:00 23:59:00 NAS archuleta 2020-09-15 2020-09-15 Outpatient RACHEL ARRIOLA, MDA MDA [id number] 18:38:00 18:50:00 NAS archuleta 2020-09-11 2020-09-11 Emergency ER [facility] Emergency [id number] [facility] 09:39:00 09:39:00 2020-09-07 2020-09-07 Emergency ER [facility] Emergency [id number] [facility] 13:22:00 13:22:00 2020-09-07 2020-09-07 Outpatient RACHEL ALFARO JR, MDA MDA [id number] 12:27:14 12:27:14 SHENG archuleta 2020-09-07 2020-09-07 Outpatient EL MDA MDA [id number] 12:21:08 12:21:08 Herman archuleta 2020-09-05 2020-09-05 Outpatient RACHEL WRAY, MDA MDA [id number] 13:30:27 13:43:02 ANGELO archuleta 2020-08-18 2020-08-18 Outpatient [facility] [id number] 2020-08-17 2020-08-17 Outpatient [facility] [id number] [facility] 2020-08-13 2020-08-13 Outpatient [facility] [id number] [facility] 2020-07-13 2020-07-13 Outpatient [facility] [id number] [facility] 2020-06-19 2020-06-19 Outpatient [facility] [id number] [facility] 2020-05-08 2020-05-08 Outpatient [facility] [id number] [facility] 2020-05-01 2020[facility]05-01 Outpatient [facility] [id number] [facility] 2020-04-29 2020-04-29 Outpatient [facility] [id number] 2020-04-15 2020-04-15 Outpatient [facility] [id number] [facility] 2020-03-02 2020-03-02 Outpatient [facility] [id number] [facility] 2020-02-13 2020-02-13 Outpatient [facility] [id number] [facility] 2020-01-30 2020-01-30 Outpatient R [facility] [id number] [facility] 14:00:00 14:00:00 [facility] 2020-01-30 2020-01-30 Outpatient R GARRY [facility] [id number] [facility] 14:00:00 14:00:00 AFIA [facility] 2020-01-29 2020-01-29 Outpatient R [facility] [id number] [facility] 12:15:00 12:15:00 [facility] 2020-01-29 2020-01-29 Outpatient R NICOLE CHEEK [facility] 10 [id number] Univers 12:15:00 12:15:00 NICOLE CHEEK i [facility] 2020-01-29 2020-01-29 Laboratory Only, Adc Test [facility] 1.2.840. [id number] Univers 10:22:41 10:37:41 Only Nicole [place] 350.1.13.10 ity of [place] [phone] [address] 2020-01-29 2020-01-29 Laboratory Only, [facility] [id number] 10:22:41 10:37:41 Only Test [place] 350.1.13.10 [place] 4.2.7.2.686 [place] [phone] [facility] 2020-01-28 2020-01-28 Outpatient [facility] [id number] Univers 14:30:00 14:30:00 ity [facility] 2020-01-27 2020-01-27 Outpatient R [facility] [id number] Univers 09:45:00 09:45:00 ity [facility] 2020-01-27 2020-01-27 Outpatient R NICOLE CHEEK [facility] 10 [id number] Univers 09:45:00 09:45:00 NICOLE CHEEK i ty of [facility] 2020-01-21 2020-01-21 Outpatient [facility] [id number] [facility] 2020-01-21 2020-01-21 Outpatient [facility]LMLC [facility] [id number] [facility] 2020-01-10 2020-01-10 Telephone Adia [facility] [id number] Univers 00:00:00 00:00:00 Nicole [place] 350.1.13.10 i [place] [phone] Mt dical nal [address] [place] [address] 2020-01-10 2020-01-10 Telephone Adia [facility] [id number] 00:00:00 00:00:00 Nicole [place] 350.1.13.10 [place] 4.2.7.2.686 Professio [phone] nal [address] [place] [address] 2019-10-11 2019-10-11 Outpatient R NICOLE CHEEK [facility] 13 [id number] Univers 10:40:00 10:40:00 NICOLE CHEEK [id number] i ty of [facility] 2019-10-11 2019-10-11 Outpatient R NICOLE CHEEK [facility] 10 [id number] Univers 10:40:00 10:40:00 NICOLE CHEEK i ty of [facility] 2019-09-19 2019-09-19 Orders Doctor SALLY 1.2.840.114 [id number] Univers 00:00:00 00:00:00 Only Unassigned, SAMANTHA 350.1.13.10 [facility] 4.2.7.2.686 [place] [phone] [address] 2019-08-29 2019-08-29 Outpatient R NICOLE CHEEK [facility] 13 [id number] Univers 11:40:00 11:40:00 NICOLE CHEEK [id number] i ty of [facility] 2019-07-17 2019-07-17 Orders Doctor ZAVALA 1.2.840.114 [id number] Univers 00:00:00 00:00:00 Only Unassigned, SAMANTHA 350.1.13.10 ity of [facility] 4.2.7.2.686 [place] [phone] [address] 2019-07-11 2019-07-11 Outpatient R NICOLE CHEEK [facility] 13 [id number] Univers 10:40:00 10:40:00 NICOLE CHEEK [id number] i ty of [facility] 2019-07-11 2019-07-11 Outpatient R NICOLE CHEEK [facility] 10 [id number] Univers 10:40:00 10:40:00 NICOLE CHEEK i ty of [facility] 2019-07-11 2019-07-11 Telemedici Adia [facility] 1.2.840.114 [id number] Univers 08:05:50 08:25:50 ne Visit Nicole Iglesias 350.1.13.10 it[place] of [place] [phone] Mt dic[address] 2019-04-25 2019-04-25 Office Adia [facility] 1.2.840.114 [id number] Univers 11:25:55 14:54:38 Visit [place] 350.1.13.10 [place] [phone] Mt dicasael nal 5 [facility] 2019-04-25 2019-04-25 [facility] [id number] Univers 00:00:00 00:00:00 Nicole Iglesias 350.1.13.10 i [place] [phone] Mt rolan lindsey 5 [facility] 2018-12-06 2018-12-06 Office [facility] 1.2.840.114 [id number] [facility] 09:26:39 10:12:15 Visit Nicole Iglesias 350.1.13.10 i [place] of [place] [phone] Mt rolan lindsey 5 [facility] 2018-08-31 2018-08-31 [facility]phone [facility] [id number] Univers 00:00:00 00:00:00 Nicole Iglesias 350.1.13.10 i [place] [phone] Mt rolan nal 5 [facility] 2018-01-16 2018-01-18 [facility] [id number] Memoria 18:43:00 04:59:59 Medical r Cardiology 00 l Records [facility] 2016-06-15 2016-07-01 Inpatient [facility] [id number] Memoria 18:52:00 00:05:00 r Ty 81 l [facility] Results Test Description Test Time Test Comments Results Result Comments Source AFB Culture w/Smear 2020-12-11 01:41:50 Test Item Value Reference Range Interpretation Comme nts Final Report (test code = 8488) Acid fast bacilli isolatedIdentific ation 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 The sequencing procedure was developed and itsperformance characteristics determined by [facility] laboratory. It has not been cleared orapproved by the U.S. Food and Drug Administration Path Review - AFB (test code = 8477) The results have been reviewed and A electronically signed by Pathologist:BRIAN MCCALL MD #[id number] Acid Fast Stain Truant (test code = No Acid Fast Bacilli seen in direct smear A 08525-7) DARCI (test code = DARCI) And RUL Lab Interpretation (test code = Abnormal 67619-5) MD Francisco Aebzzww2698-05-42 19:30:21 Test Item Value Reference Range Interpretation Comments Final Report (test No growth code = 8488) Path Review - Immunity and antibiotic Bottle/Isolator use may render culture (test code = 8499) negative. Ongoing infection requires repeat culture. The results have been reviewed and electronically signed by Pathologist:Mary Last MD, PhD #[id number] DARCI (test code = From PICC line please DARCI) MD BarrientosUmjdrnhpEyxmlpxhipuk8146-79-55 14:25:51 Test Item Value Reference Range Interpretation Comments Total Cells (test code 115 = 7642) Neutrophil % (test 82.0 % 42.0-66.0 H The Neutr ophil count code = 6491) includes Bands. Lymphocyte % (test 2.0 % 24.0-44.0 L code = 6194) Monocyte % (test code 11.0 % 2.0-7.0 H = 6422) Metamyelocyte % (test 5.0 % See_Comment H The Mt tamyelocyte code = 6399) count includes Myelocytes. [Automated mess age] The system [employer] generated this result transmitted ref erence range: <=0.0. T he reference range was not used to int erpret this result as normal/abnormal . NRBC (test code = 1.0 See_Comment H [Automate d message] 5612) The system [employer] generated this result transmitted ref erence range: [...] (test code = Present Not Present A 1784) Tear Drop (test code = Present Not Present A 4872) Slide Comments (test See Note A Platele t morphology code = 5447) normal. Lab Interpretation Abnormal (test code = 03751-0) MD Barrientos.AMM2334-48-94 14:25:49 Test Item Value Reference Range Interpretation Comments WBC (test code = 22.7 K/uL 4.0-11.0 H 6690-2) RBC (test code = 789-8) 2.92 See_Comment L [Au tomated message] The system [employer] generated this result transmitted ref erence range: 4.50 - 6 .00 M/uL. The refer ence range was not u sed to interpret this result as normal/abnor mal. Hgb (test code = 718-7) 8.7 See_Comment L [Au tomated message] The system [employer] generated this result transmitted ref erence range: [...] See_Comment [Automate d message] 786-4) The system [employer] generated this result transmitted ref erence range: 31.0 - 3 6.0 gm/dL. The refe rence range was not u sed to interpret this result as normal/abnor mal. RDW-SD (test code = 55.0 fL 35.1-46.3 H 32581-8) RDW-CV (test code = 16.5 % 12.0-15.5 [...] cell differential. [Automated mess age] The system [employer] generated this result transmitted ref erence range: <=0.0. T he reference range was not used to int erpret this result as normal/abnormal . Lab Interpretation Abnormal (test code = 67244-8) MD BarrientosElectrolyte Wutaz0394-39-62 09:16:35 Test Item Value Reference Range Interpretation Comments Sodium Lvl (test code = 140 See_Comment [Au tomated message] 4385) The system [employer] generated this result transmitted ref erence range: 136 - 14 5 mEq/L. The refe rence range was not u sed to interpret this result as normal/abnor mal. Potassium Lvl (test code 4.2 See_Comment [A utomated message] = 9129) The system [employer] generated this result transmitted ref erence range: 3.5 - 5. 1 mEq/L. The refe rence range was not u sed to interpret this result as normal/abnor mal. Chloride (test code = 100 See_Comment [Auto mated message] 1829) The system [employer] generated this result transmitted ref erence range: 98 - 107 mEq/L. The refe rence range was not u sed to interpret this result as normal/abnor mal. CO2 (test code = 5227) 30 See_Comment H [Aut omated message] The system [employer] generated this result transmitted ref erence range: 22 - 29 mEq/L. The reference r [place] was not used to interpret this result as normal/abnor mal. Anion Gap (test code = 10 See_Comment [Aut omated message] 9801) The system [employer] generated this result transmitted ref erence range: 4 - 14 m Eq/L. The reference r lou[place] was not used to interpret this result as normal/abnor mal. Lab Interpretation (test Abnormal code = 81382-6) MD BarrientosFractionated Csafobvwf0528-43-22 09:16:34 Test Item Value Reference Range Interpretation [...] 28 g/L. [Automate d message] The system [employer] generated this result transmitted ref erence range: [...] mg/dL 0.0-0.9 code = 5095) MD BarrientosPhosphorus Vsjkf0893-70-27 09:16:33 Test Item Value Reference Range Interpretation Comments Phosphorus (test code = 6817) 3.5 mg/dL 2.5-4.5 MD BarrientosLjayrhvgEMM9667-10-19 09:16:31 Test Item Value Reference Range Interpretation Comments LDH (test code = 6111) 336 U/L 135-225 H Resul ts greater than 1651 U/L may no t be reliable due to matrix effect w ith extended diluti on as it exceeds the piece dyer s recommended l imit. Caution should be exercised when interpreting bentley ch values and done in conjunction wit h clinical contex t. Lab Interpretation (test Abnormal code = 03078-8) MD BarrientosGlomerular Filtration Yloe9517-31-43 09:16:30 Test Item Value Reference Range Interpretation [...] pat ients 18 and older. According to e National Kidney Foundation's Ki dney Disease Outcome Quality Initiat rere (KDOQI) [...] . Lab Interpretation Abnormal (test code = 03365-1) MD BarrientosCalcium Ivjlf0241-57-85 09:16:29 Test Item Value Reference Range Interpretation Comments Calcium Lvl (test code = 5258) 8.3 mg/dL 8.4-10.2 L Lab Interpretation (test code = Abnormal 72082-9) FloydUric Cmcu2572-70-20 09:16:28 Test Item Value Reference Range Interpretation Comments Uric Acid (test code = 7955) 8.5 mg/dL 3.4-7.0 H Lab Interpretation (test code = Abnormal 34047-4) MD BarrientosAlbumin Wobxh8754-86-59 09:16:27 Test Item Value Reference Range Interpretation Comments Albumin Lvl (test code = 3.1 See_Comment L [A utomated message] 7001) The system [employer] generated this result transmitted ref erence range: 3.5 - 5. 2 gm/dL. The refe rence range was not u sed to interpret this result as normal/abnor mal. Lab Interpretation (test Abnormal code = 16681-8) FloydTotal Vhdetdp2277-79-25 09:16:26 Test Item Value Reference Range Interpretation Comments Total Protein (test code = 7649) 6.2 g/dL 6.4-8.3 L Lab Interpretation (test code = Abnormal 22089-1) MD BarrientosAspartate Rfjcypjlowomkbxq3912-64-52 09:16:25 Test Item Value Reference Range Interpretation Comments AST (test code = 19 U/L See_Comment [Automated message] The 4459) system which ge nerated this result transmit jigar reference range : <=40. The reference range was not used to interpr et this result as sonido l/abnormal. MD BarrientosMagnesium Hxgsx5350-72-30 09:16:24 Test Item Value Reference Range Interpretation Comments Magnesium (test code = 6359) 1.8 mg/dL 1.6-2.6 MD BarrientosAlkaline Wlnobvkztbj3750-91-36 09:16:22 Test Item Value Reference Range Interpretation Comments Alk Phos (test code = 4768) 249 U/L 40-129 H Lab Interpretation (test code = Abnormal 04010-2) MD BarrientosGlucose Intgg3799-07-00 09:16:21 Test Item Value Reference Range Interpretation Comments Glucose Level (test 93 mg/dL 70-99 Effectiv e 10/21/15, the code = 5699) glucose referen ce intervals have been updated based o n [place] [employer] tia delines (Standards of M edical Care in Diabete s 2016. Diabetes Care 2 016; 39: S13-S22).Fastin g blood glucose:Normal: 70-99 mg/dLImpaired f asting glucose (increa sed risk for diabetes or pre-diabetes): 100-125 mg/dLDiabetes m ellitus: >/=126 mg/dL Ra ndom blood glucose:N ormal: 70-199 mg/dLNot e: Random glucose >100 mg /dL is associated with increased risk for diabetes MD BarrientosSmoaobvkCSZ2245-12-19 09:16:20 Test Item Value Reference Range Interpretation Comments ALT (test code = 16 U/L See_Comment [Automated message] The 3119[employer] system which ge nerated this result transmit jigar reference range : <=41. The reference range was not used to interpr et this result as sonido l/abnormal. MD Barrientos.Serum Gutrmahlhu5925-33-52 09:16:19 Test Item Value Reference Range Interpretation Comments Creatinine (test code = 5399) 2.53 mg/dL 0.67-1.17 H Lab Interpretation (test code = Abnormal 12854-9) MD BarrientosVfjlqjfpAOQ7126-85-47 09:16:18 Test Item Value Reference Range Interpretation Comments BUN (test code = 5055) 29 mg/dL 6-23 H Lab Interpretation (test code = Abnormal 50022-6) MD BarrientosVRElliott Iqdpsny3471-75-15 14:30:01 Test Item Value Reference Range Interpretation Comments Final Report (test No Vancomycin resistant code = 8488) Enterococci isolated Path Review - VRE VRE absent or below limits (test code = 8485) of detection....The results have been reviewed and electronically signed by Pathologist:Jonathon Bethea MD, PhD #[id number] MD Cohen Respiratory Culture w/Gram Ahpoz1773-37-39 14:14:20 Test Item Value Reference Range Interpretation Comments Final Report (test code Moderate Yeast A = 8488) isolated Path Review (test code = Yeast is a component A 8492) of upper respiratory/oral jesse and may NOT be clinically significant. Recommend clinical correlation BEFORE requesting additional workup....The results have been reviewed and electronically signed by Pathologist:Jonathon Bethea MD, PhD #[id number] Gram Stain Report (test Few WBC's seenNo A code = 29249-5) organisms seen. Lab Interpretation (test Abnormal code = 58101-8) MD BarrientosTMP Interpretation Antibody Screen Owriysmq9705-89-40 12:43:39 Test Item Value Reference Range Interpretation Comments TMP Auto Neg At the present ABSC Interp time, patient (test code = plasma shows no YAS ROMERO 7535) evidence of RBC DION,Dic tated by: alloantibodies. MANUELA ASHLEY,Dictat ed Date/Time: 10.26 7:43 AM CDT Transcribed Marck e/Time: 11.13.2020 7:43 AM CDTElectronical ly Signed By: YAS ASHLEY, on 11.13.2020 7:43 AM C MD BarrientosAntibody Unljlz5900-79-61 12:34:14 Test Item Value Reference Range Interpretation Comments ABSC. (test code = 890-4) Negative ABSC MD BarrientosWgtsprjdGPNXh1394-15-25 12:34:13 Test Item Value Reference Range Interpretation Comments ABORh. (test code = 882-1) A POS MD BarrientosClot Expiration Sllu2632-47-22 12:34:08 Test Item Value Reference Range Interpretation Comments T & S Expiration (test code = 11/16/2020 5318) MD BarrientosPartial Thromboplastin Qkcp8082-02-14 09:28:40 Test Item Value Reference Range Interpretation Comments aPTT (test code = 6773) 43.1 See_Comment H [Au tomated message] The system [employer] generated this result transmitted ref erence range: 24.7 - 3 6.8 second(s). The reference range was not used to int erpret this result as normal/abnormal . Lab Interpretation (test Abnormal code = 38727-3) MD BarrientosProthrombin Time with [id number] 09:28:39 Test Item Value Reference Range Interpretation Comments PT (test code = 6746) 16.1 See_Comment H [Auto mated message] The system [employer] generated this result transmitted ref erence range: 11.5 - 1 3.9 second(s). The reference range was not used to int erpret this result as normal/abnormal . INR (test code = 5973) 1.40 0.90-1.10 H Lab Interpretation (test Abnormal code = 91397-7) MD BarrientosUrea Nitrogen Ldudw6875-95-62 23:22:37 Test Item Value Reference Range Interpretation Comments U Urea (test code = 436 mg/dL Normal r louis not 7820) available for c ollections less than 24 ho urs in duration. MD BarrientosCreatinine Opoov6732-35-38 23:22:36 Test Item Value Reference Range Interpretation Comments U Creatinine (test 101.0 mg/dL 40.0-278.0 The refer ence range code = 7725) listed is for f irst morning urine collection. MD BarrientosSodium Eguer4300-16-44 23:22:35 Test Item Value Reference Range Interpretation Comments U Sodium (test code = 28 mEq/L Normal range not available 7809) for collections less than 24 hours in dur ation. MD BarrientosAlbumin Level Rmfsn6551-51-81 23:19:07 Test Item Value Reference Range Interpretation [...] clinically sens itive and predictive indicator of ronic kidney disease. Albuminuria is determined by urinary albumin to creatinine rati o (UACR) in a ran dom spot urine or a 24-hour collect ion. Normal: <30 mg/gModerately increased: 30-3 00 mg/gSeverely increased: >300 mg/g [Automated mes eva] The system [employer] generated this result transmit jigar reference range : <=29. The refer ence range was not u sed to interpret th is result as normal/abnormal . Lab Interpretation Abnormal (test code = 43348-7) MD BarrientosProtein/Creatinine Ratio Ashjn1672-89-04 23:19:06 Test Item Value Reference Range Interpretation Comments UTP Ran (test code = 23 mg/dL Normal range not 7922) available for collections les s than 24 hours i n duration. U Creatinine (test code 99.7 mg/dL 40.0-278.0 The reference range = 7725) listed is for f irst morning urine collection. U Prot/Creat (test code 0.23 g/g See_Comment H [Au tomated message] = 7805) The system [employer] generated this result transmit jigar reference range : <=0.14. The reference range was not used to interpret this result as normal/abnormal . Lab Interpretation Abnormal (test code = 49088-9) MD BarrientosUrinalysis with Aozsjbfkbmm1227-68-43 22:56:40 Test Item Value Reference Interpretation Comments [...] the implementation of new instrumentation in the [facility], allowing greater sensitivity of measurement. Urinalysis results reported by the [facility] using existing instrumentation, as well as Urinalysis testing performed manually or by backup methodology at the [facility] will remain relatively unchanged. New reporting parameters and units will now be reported for all campuses. Lab Interpretation Abnormal (test code = 98768-7) MD BarrientosUrinalysis w/Microscopic if Zllgclgok6792-41-32 22:48:43 Test Item Value Reference Range Interpretation [...] A Lab Interpretation (test code = Abnormal 36593-8) MD BarrientosTMP Interpretation Xjracrgalf6363-01-09 22:06:30 Test Item Value Reference Range Interpretation Comments TMP XM Interp RBC units (test code = crossmatched for 7566) transfusion appear ___MANUELA acceptable. Nivia ASHLEY ed by: Nivia NEAL ed Date/Time: 11.11.2020 17:0 6 PM CDT Transcrib ed Date/Time: 11.11.2020 17:0 6 PM CDTElectronical ly Signed By: YAS ASHLEY, on 11.11.2020 17:0 6 PM MD BarrientosPredian RBC:G15 NE, 1 Idquc6059-28-72 19:07:08 Test Item Value Reference Range Interpretation Comments PRBC Product Ready 1 Red Blood Cells (test code = Available - 28890-0) Order Form 03 when ready for product issue. Unit Number (test [id number] code = 7002) Product Code (test [id number] code = 7003) Unit Expiration [id number] (test code = ) Unit Blood Type 6200 (test code = 7004) Product Code Text RBCIRLR CPD AS1 (test code = 500mL ) Crossmatch [id number] Expiration Date (test code = ) Unit Irradiated IRRADIATED (test code = 730724) Dispense Status ISSUED (test code = 700) Unit Blood Type A Positive (test code = 7005) Product Fixture Builder .BPAM ____ Location (test ___ code = 378986) ___ ____ MD BarrientosRBC Product Ready for Pick My5281-02-75 13:49:44 Test Item Value Reference Range Interpretation Comments PRBC Product Ready B2 Blood Bank 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 FloydCOVID-19 (SARS-CoV-2) PCR-Asymptomatic [id number] 07:02:50 Test Item Value Reference Range Interpretation Comments COVID19 (SARS Not Detected Not Detected This test is a CoV-2) Result qualitative (test code = reverse-transcr iptase 72369-5) polymerase kerry n reaction (RT-PC R) developed for t Wepa MELISSA 680 0 system and inte nded [...] were verified by the Microbiology Laboratory at [facility] [place], CLIA Accreditation # : [id number] and CAP Accreditation # : [id number]. Result s must be interpreted within the [...] te sting if clinically indicated. 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 MD BarrientosBanner Del E Webb Medical Centeripheral Smr For Doc [id number] 16:17:06 Test Item Value Reference Range Interpretation Comments Peripheral Smear (test code = 4273) LILLI LOVE [facility] Glucose Thujte4635-65-29 04:39:40 Test Item Value Reference Interpretation Comments Range POC Glucose (test 144 mg/dL 70-99 H RN Notifie dCapillary code = 18123-3) blood sample s, e.g. obtained by fingerstick, [...] Capillary code = 9554) Performing Lab (test [facility] code = 09974) [facility] MD Yamilet rowan Clinical Lab, [address] [place] [address] 770 30; Faculty Research Physician: Betsey Johnson MD Lab Interpretation Abnormal (test code = 89427-3) [facility] Oximetry Murglv0405-37-17 15:03:09 Test Item Value Reference Interpretation Comments Range POC O2 75.8 % Saturation,Venous (test code = 72907) POC Oxyhemoglobin, 73.7 % Venous (test code = 67440) POC Hemoglobin, total 8.8 g/dL 13.5-17.5 L (test code = 60498) POC Carboxyhemoglobin 0.7 % 0.0-1.9 (test code = 24688) POC Methemoglobin 2.0 % 0.0-1.5 H Method sam cription: (test code = 94144) The ABL8 0 FLEX CO-OX OSM analyzer is a portable, autom ated analyzer that measures oxygen saturation (sO2 ), concentration o f total hemoglobi n (ctHb), fractio n of oxygenated hemo globin in total hemogl obin (FO2Hb), fracti on of methemoglobin i n total hemoglobi n (FMetHb), and fraction of carboxyhemoglob in in total hemoglobi n (FCOHb) co-oxim etry parameters in w [facility] blood. The anal yzer uses spectrophotomet ry to perform quantit ative measurement of the parameters list ed from a 65l sa mple. POC OX Draw Site (test Main pulm art code = 94909) Performing Lab (test MDA Main Main Ca mpus code = 90461) [facility] Pillar Cli nical Lab, [address] [facility] [address], [facility], [place] [address]; Faculty Research Physician: Betsey Johnson MD Lab Interpretation Abnormal (test code = 28231-1) MD BarrientosImmature Platelet Pmiqcdrh3662-11-81 10:14:02 Test Item Value Reference Range Interpretation Comments IPF (test code = 5.9 % 0.8-6.2 5988) DARCI (test code = For patients with DARCI) Platelets lower than 100 k/mm3 MD BarrientosRetic [id number] 10:14:01 Test Item Value Reference Range Interpretation Comments Retic Cnt Auto (test 0.6 % 0.5-1.5 code = 74995-4) RETHE (test code = 37.5 pg 23.2-37.5 6973) IRF (test code = 16.3 % 2.3-18.0 44626-1) DARCI (test code = DARCI) For patients with Platelets lower than 100 k/mm3 MD BarrientosNT-Pro BNP (In-House)2020-10-31 11:01:08 Test Item Value Reference Range Interpretation Comments NT ProBNP (test code = 3919 pg/mL See_Comment H [Aut omated message] 1257) The system [employer] generated this result transmit jigar reference range : <=125. The refe rence range was not u sed to interpret th is result as normal/abnormal . Lab Interpretation Abnormal (test code = 76270-0) MD BarrientosUrine Uzhjopb8575-51-43 21:14:59 Test Item Value Reference Range Interpretation Comments Final Report (test No growth code = 8488) Path Review - Urine The results have been (test code = 8483) reviewed and electronically signed by Pathologist:Mary Last MD, PhD #[id number] MD BarrientosHBV DNA Umfrb6006-73-75 00:21:11 Test Item Value Reference Range Interpretation Comments HBV DNA [facility] Undetected Undetected IU/mL Result in log IU/mL is (test code = Undetected. 14203-1) ----ADDITIO NAL INFORMATION---- ----The quantif ication range of this a ssay is 10 to1,000,000,000 IU/mL (1.00 log to 9. 00 log IU/mL). Testing was performed using the melissa HBV test ([employer] with the melissa 6800 System. Test Pe rformed by:[place] [id number]Lab Director: Sukhwinder Neville M.D. Ph. D.; CLIA# [id number] MD BarrientosFungus Tctsvpe5315-07-52 21:36:34 Test Item Value Reference Range Interpretation Comments Final Report (test Few Yeast A code = 8488) isolatedProbable oral jesse Path Review - Fungus The results have been A (test code = 8479) reviewed and electronically signed by Pathologist:Mary Last MD, PhD #[id number] DARCI (test code = DARCI) And RULCultures are held for 4 weeks before finalization. Lab Interpretation Abnormal (test code = 28593-5) MD BarrientosTobramycin Ckxnfx3494-38-23 16:34:36 Test Item Value Reference Range Interpretation Comments Tobra Lvl <0.43 mcg/mL No reference ra nges (test code = established for random 76) levels, please refer to trough and/or p [...] due on 10/27 at 11am MD BarrientosFerritin Sgviv8992-17-56 09:30:46 Test Item Value Reference Range Interpretation Comments Ferritin Lvl (test code = 5608) 899 ng/mL 30-400 H Lab Interpretation (test code = Abnormal 08786-3) MD BarrientosGastrointestinal Multiplex Panel Path Evfvvt2022-44-59 20:12:16GIMP PRNo diarrheal pathogens detected by multiplex nucleic acid detection. A negative result does not rule-out the possibility of a diarrheal pathogen not are detected by this panel. Non-infectious causes of diarrhea should also be considered....Reviewed and Electronically signed by Pathologist:Jonathon Bethea MD, PhD #[id number] Comment: Performed by real-time PCR methodology. This [...] correlation isrecommended. JONATHON BETHEA MD, PhD - [id number] by: JONATHON BETHEA MD, PhD - [id number] Date/Time: 10.23.2020 15:12 PM CDT Transcribed Date/Time: 10.23.2020 15:12 PM CDTElectronically Signed By: JONATHON BETHEA MD, PhD - [id number] on 10.23.2020 15:12 PM [facility] AndersonClostridium Difficile DNA Path Review 2020-10-23 19:51:50C diff DNA PRC. difficile EIA is performed only on stools positive for C. difficile DNA and detects the presence of C. difficile toxin proteins via a rapid immunoassay. Patients positive for BOTH C. difficile DNA and EIA are more likely to have a C. difficile infection....Reviewed and Electronically signed by Pathologist:Jonathon Bethea MD, PhD #[id number] Comment: C. difficile Toxin DNA (Primary Method) [...] repeat testing. JONATHON BETHEA MD, PhD - [id number] by: JONATHON BETHEA MD, PhD - [id number] Date/Time: 2020 14:51 PM CDT Transcribed Date/Time: 10.23.2020 14:51 PM CDTElectronically Signed By: JONATHON BETHEA MD, PhD - [id number] on 10.23.2020 14:51 PM [facility] AndersonClostridium Difficile DNA Ifxbf2688-51-91 15:56:03 Test Item Value Reference Range Interpretation Comments C difficile DNA (test Positive Negative A code = 5134) C difficle Toxin EIA Positive Negative A (test code = 8961) C difficile C. difficile EIA is Interpretation (test code performed only on = 4389407) stools positive for C. difficile DNA and detects the presence of C. difficile toxin proteins via a rapid immunoassay. Patients positive for BOTH C. difficile DNA and EIA are more likely to have a C. difficile infection. Lab Interpretation (test Abnormal code = 64762-2) MD BarrientosGastrointestinal Multiplex Vtfbu4110-03-90 22:23:03 Test Item Value Reference Range Interpretation [...] = 7321) MD BarrientosHepatitis B Surface Ag w/Ijamary5100-71-17 16:28:28 Test Item Value Reference Range Interpretation Comments Hep Bs Ag-Houck Negative Negative Test Perform ed by:[place] (test code = [facility] - 5196-1) [place] [address] [place], [place] [address]Djr Director: Sukhwinder Neville M.D. Ph. D.; CLIA# [id number] MD BarrientosComplete Blood Count w/o Awhqylwwbuim9201-51-33 09:59:09 Test Item Value Reference Range Interpretation Comments WBC (test code = 7.1 K/uL 4.0-11.0 6690-2) RBC (test code = 789-8) 2.73 See_Comment L [Au tomated message] The system [employer] generated this result transmitted ref erence range: 4.50 - 6 .00 M/uL. The refer ence range was not u sed to interpret this result as normal/abnor mal. Hgb (test code = 718-7) 7.9 See_Comment L [Au tomated message] The system [employer] generated this result transmitted ref erence range: [...] See_Comment [Automate d message] 786-4) The system [employer] generated this result transmitted ref erence range: 31.0 - 3 6.0 gm/dL. The refe rence range was not u sed to interpret this result as normal/abnor mal. RDW-SD (test code = 54.5 fL 35.1-46.3 H 12782-6) RDW-CV (test code = 16.9 % 12.0-15.5 [...] cell differential. [Automated mess age] The system [employer] generated this result transmitted ref erence range: <=0.0. T he reference range was not used to int erpret this result as normal/abnormal . Lab Interpretation Abnormal (test code = 80108-3) MD BarrientosLactic Acid, Qaleqc6337-48-88 09:42:03 Test Item Value Reference Range Interpretation Comments V Lactate (test code = 2519-7) 0.8 mmol/L 0.5-1.6 MD Taylorpatitis B Surface My0232-27-42 10:42:36 Test Item Value Reference Range Interpretation Comments HBsAg Received (test See Note HBsAg w as sent to a code = 40735) reference lab for testing. Expec t results on Hepa titis B Surface Antigen w/ Confirm within 96 hours. MD BarrientosWjjuxvnsPBZ5273-56-41 09:56:39 Test Item Value Reference Range Interpretation Comments pH Art (test code = 7.51 7.35-7.45 H Results are 2744-1) corrected for a body temp of 37C. pCO2 Art (test code = 33.9 See_Comment L [Auto mated message] 2018-10) The system [employer] generated this result transmit jigar reference range : 35.0 - 48.0 mmH g. The reference r lou[place] was not used to interpret this result as normal/abnormal . pO2 Art (test code = 104 See_Comment [Autom ated message] 6606) The system [employer] generated this result transmit jigar reference range : 83 - 108 mmHg. The reference range was not used to interpret this result as normal/abnormal . HCO3 Art (test code = 27 mmol/L 1959-06) Base Excess Art (test 4 mmol/L -2-3 H code = 1925-7) O2 Sat Art (test code = 99 % 95-99 6512) Lab Interpretation (test Abnormal code = 22146-8) MD BarrientosVancomycin Level Crywmj3912-63-39 06:58:59 Test Item Value Reference Range Interpretation [...] previous dose i s not 8001) availablefor th is sample. The date report ed is the samplecollectio n date. Vanco Dose Date 10/12/2020 Level, date, and time of (test code = previous dose i s not 8000) availablefor th is sample. The date report ed is the samplecollectio n date. MD BarrientosMRSA Screening Eqbppip7354-97-94 21:32:10 Test Item Value Reference Range Interpretation Comments Final Report (test No Methicillin resistant code = 8488) Staphylococcus aureus isolated. Path Review (test The results have been code = 8492) reviewed and electronically signed by Pathologist:Mary Last MD, PhD #[id number] [facility] Add-On Reqg0023-39-67 07:25:00 Test Item Value Reference Range Interpretation Comments Ordered (test code = 6568) Test Added Test Needed (test code = 7604) CMP, mag, phos MD BarrientosCalcium Ionized, Yhnjzw0631-27-28 13:46:31 Test Item Value Reference Range Interpretation Comments V Ion Ca (test code = 66304-7) 1.14 mmol/L 1.15-1.29 L Lab Interpretation (test code = Abnormal 00456-5) MD Silvermanonellchapo Lodxlxx0839-04-79 21:36:07 Test Item Value Reference Range Interpretation Comments Final Report (test No Legionella species code = 8488) isolated Path Review - The results have been Legionella (test code reviewed and = 8480) electronically signed by Pathologist:Mary Last MD, PhD #[id number] DARCI (test code = DARCI) Label says RML & RUL MD BarrientosP Tvfsnmvjs7393-26-79 15:15:29 Test Item Value Reference Range Interpretation Comments TMP Exception Patient A Pos ____ Interp (test transfused with O Pos code = 7544) platelets. This is due to temporary _LISETTE RICHARDSON unavailability of ABO SINGH ,Dictated compatible platelets by: CHICA SINGH,Dictated Date/Time: 10.05.2020 10:1 5 AM CDT Transcribed Date/Time: 10.05.2020 10:1 5 AM CDTElectronical ly Signed By: JENNA TORRES [facility] on 10.05.2020 10:15 AM MD Dougherty platelets:Transfusion Date: 10/04/2020; Transfusion Indications: Actively Bleeding; G707, 1 Cbxqe0982-21-00 21:47:10 Test Item Value Reference Range Interpretation Comments PLT Product Ready Approved Platelet o rder (test code = has been 32671-3) approved. Order Form 3 when ready for product issue. Expect 2 hours for platelet concentration. Unit Number (test [id number] code = 7002) Product Code (test [id number] code = 7003) Unit Expiration [id number] (test code = 841999) Unit Blood Type 5100 (test code = 7004) Product Code Text PLATELETS Pooled IR (test code = 526759) LR [place] Number of Units in 4 Pool (test code = 999380) Unit Irradiated IRRADIATED (test code = 212626) Unit Leukoreduced LEUKOREDUCED (test code = 208284) Dispense Status ISSUED (test code = 7001) Unit Blood Type O Positive (test code = 7005) Product Fixture Builder .BPAM ___ Location (test code = 833619) MD BarrientosPLT Product Ready for Pick Di5451-97-11 21:05:07 Test Item Value Reference Range Interpretation Comments PLT Product Ready B2 Blood Bank Product i s ready for for Fixture Builder (test picker machine operator on October 04, code = 709619) 2020 16:05:02 CDT. MD BarrientosHbrbgjywKtzfctphfi1392-72-56 18:27:11 Test Item Value Reference Range Interpretation Comments Fibrinogen (test code = 5610) 193 mg/dL 214-503 L Lab Interpretation (test code = Abnormal 08634-4) MD BarrientosCytology Non-Professor Of Biological Sciences Ypcgwdpyeourps7086-85-17 23:36:05 Test Item Value Reference Range Interpretation Comments Gross Description (test e4ogkFRvOEYooWTXQL code = 3668383633) YrZ1qywhCmFDWqhMYh Y4YcnvksUQioWU6iEU 5cyMrsyGMauNUtST5Q XGRlZmYxXHBhcGVydz EyMjQwXHBhcGVyaDE1 FYLuEA0qvxjkCSoeDK tdFPDvxiQ3VRZfrNHo K3KfMQHmIU0oogsoIC M6ZPiffC9lluQQElnf Xe2cxTOxePxwFkDuRj NoYXJzZXQwXGZuaWwg DQVyMWx6pZ6ZTqdkU8 4ef6Z0Kjk5FIHqGDNc M9ByYR6zWMJecDAuX9 6DTaaiVZR5SDQLPtgz CYQaPT5Ez3ebSLXlhH JvGOL9PWbpxHMrABUl GVLtNSk5NXIoNKiwhQ TaVJ4abAyrNogceVan k4CrfHNdYOejNNReFH BbFNicPOToSQ4MRsQr XSXyAGK0EBhfEDg4CI f3LA1VAcUiCAFtEFu7 PNshTdNyJFh4IQntHB 2WLZy4Roh9CbG2VGX7 CWU6IIKdMMUvKuAuIT YgQXJpYWwgXFxmcyAx MCBcXGZiIFxcZmwgXF vcY80jlHwkkD1cFhtb swAtBIS6UTRkakAAWy xwbGFpblxlcGljTmVz dERvYzEgDQpcbHRycG FyXGxpbjBccmluMCAN ClxsdHJjaFxjZjFcZn MyMCAxIERpZmYgUXVp wxosXZWRAONtX1DqmT 2cL1oqYXDvBXRulpQN GjT7QN2jBtUviJUltC IlvPdgHpxaiAH9YUsq VhklbG0xaFGLMJXUMh lUWklyocKjBF0LPWHI BlDHQB72DpI7FaF0SO wxfXtcZmxkcnNsdCBc ByGLbM1ciEkzdQUacE EplA40YIzuINFqb7Mv F4Gtn1wzvSUrNDtyVi scrKAjzoO2ZCmPJGJV GSmJIxGxCV3iETqZDU RCRUdJTnwyfXtcZmxk drWpcUMqKrPNgG5tdH 6go6etgYQoEBevRecn yLMjhyK5AJhPPWBJVE gPGzYdYC9kASjFNAHA DeJ1Fr67ODWgFNXffG KrSHyiD732ISKkFAjv GTa1rkOpTFXlq5OfD3 UbQ1UcDQCyBtBxHDTr gJznv4uwlFLfSPaaDo wimYZfgzR3LHnGLNNW TVkYVtWlPY1kLKmKU9 FCVnZ8BhK8MjD8BYag fXtcZmxkcnNsdCBcJz EJgT8clMfauA6ocZFm D6yrE8MrYSSkMhJhjT LvSN1LSAJce4NcL6N3 NDFjEXhrw9jnEBYyAB gdj7TtZGzFCYUCLI3K ZV4ufWX1XZhSGKASP2 gYtKR4MhRvbXH6Q681 XGZsZHJzbHQgXCcxQ3 23X6EpH3djSY2cU20k J3XqsBCohROkRTZ0JR M2oQ4gNA06xnwxkPuh nNzwspE4GYDtrykocW E8VXJaPBwrv7ydEBEo EFwep1HrXDvTZYRHCS 6VGN7ibTD9PXiGPRJR TZbfMHL5MSkngRI9h8 hyzFCan3t2YPdwKTK0 fVxwbGFpblxsdHJjaF xjZjFcZnMyMFxwYXIg CIdLqLBpiBk7DTkqkb NFJYYGFTfMG5GxTWJJ LBQPRDAoTmIIYC6cZb F3XgI0PA07UtvsFkI8 HcWfwME9WQEXTUWEOW bDN3OsGKFMOPUBVFLc EV7ZKFfQUIEBAQANK6 8VTTKYVQVSB9PCH2yT UHXdu1PaezsJSZtAB7 NCAE9PHVOPRGTNME6S IjHgKZsUG9RGD7eQJT JfTUVUQURBVEFfQkVH FS8yNNr4Zfz9iYW4Hx N8JsC2OemeKP0rNMqE x05aMM23hbQ2mF2iUO CwT5htiLQ6SYkrZWU0 PTr1CxSaDIVovKLdDM NvbmNlbnRyYXRlZCBi rPFtsAFiE9AlvULdGm ScFVRyi90rbBUglG0c hKVmDupoYT7wRByFY1 AZC5oXNNQrXSUAMUFV NZIbXU8EULzLFI9HTU JfTUVUQURBVEFfQkVH IX7gMTvXIO0RQLOrFO WSOADVAECpHO5FTMHX HC6QAGXHGPUCO10FMN CGIUPQF7IUZ9yFQWQO KUIPIuIEEeHYTI5PCG DTTRVOCP4AArZWHowh bGFpblxlcGljTmVzdE FkKdCyoIaxkE67ZAEc pNEiGBF8VR9gLUNlhl dqXVTxUGTwOKH5NMix yK89zVBuWTLnJRAoqY XdkO3LYIBpZDE3FBux nU08uTRhHB3JNBDaWR B1NJKlaPDaTOP2AD7z fQ0KfQ== Major Classification (test NFMC/benign code = 9839) Diagnosis (test code = 34) m6vwaDEtDDHqoMJ7NQ RwMGQeg6seh7RkvXSz cGFyXGpleHBhbmRcbm 06zKU7dM39MS8uMLJk IcW7PZXzwdL0Psd6XC BhFPSejFVxA899p4xy x7mvyoPicCH4KJNvXI BsI4WuFO9nANAjrRWx U95leKXbZIT3LLCfOB JqhBWmFXElUZK0JFGh qTTyW0tjBCPrOF1tml dyMTgwMFxtYXJndDE0 PVRutXGbC2ItMWTpZW auZDDdrzm4UnUcTv4z dGVyeTcyMFxwYXJkXH JiUGptRYTcChZcR8Fe MCKvYHj0lojrXYYzN5 p0AJPadFMcRGfqNbDd LQLxe32ljZ6okSOua9 rbyaNkMKYkR9W6ZVEn cdy4GCAzxDTxSIrzGi IwXGxpbjcyMFxjZjAg Wb8mgVUwvLjdGD63VX XunEjlZEopYF94sGVu DSDjlAShPH3sPPSxnd HgLEEvUO4aUMVxvXRw IEdNUyBzdGFpbiwgbm GfEXMaymEtVd5iGBW0 qfpmjPHws1XrwxFboB FyIEdNUyBzdGFpbiwg rtCsFRSqqyIbQn1pAI KaETBqt4T1x6Jpf4oa YXIgSXJvbiBzdGFpbi yvADXzXG34xPRjtGmy bmVnYXRpdmVccGFyfQ == Comment (test code = 9835) h3cohTGvDDDwwUA8UJ PaNEWgl8knp6ItoADt cGFyXGpleHBhbmRcbm 27cTV5yH26CA1bIHBm NeG0WPIdczC0Zlm7JR JmSFKnfMMhQ175g8np m3uwmfJbyEB4gZnrIN CrsfftObC7TUaiCZKq tyyfDVi7ZHtnUKAuoO M5YUVwhSRtA3MeLCTt GG3cgck5LYS7BCdwWW QnKxP7OWHrvIWbEZCy kBhzHMmph523VRO8Nj DeSSCigxUhdVclyQ2d CjBhEZMBi159at9bne MhhaDoYJIiap4rujbx dGUuIFxwYXJ9 Retained/Biomarker Testing k8nhtXQvKDFddMJ8UO (test code = 9838) IiNQGpp2dxw3EtaWIm cGFyXGpleHBhbmRcbm 90hET9oX84AV8hOTDr RfN1BPSdzvK8Lxa8PS EpIPQjrVNxK834e7oz y9vpbzVgaEO5mZeaDI TgaowfVcW5PVocRYTp kxfpDUk4KHfpHLHtyX N6ORKyxNFnU2NtMKFr NA2jsmx0KJD7BPwoIC FeNwD6ARPefHBdNEDw vHmpYUekp325NOY9Rs QvRLLkmiImpWhexD5j ZnMyMCBTUjogMiBTLC AyIFNQIFxwYXJ9 Informational Points (test g9hrzJFkBTKjoYBzLr code = 9836) RiXDXnHDKbs5gcQOEe bGFuZzEwMzNcZnRuYm uobNQcHIXqLcVkr7jm z371pPJfk7viLTZgZy Z8wVVvAGFjqKAtG703 DHIcSSpnc4mek7EvUI SqnOUmp2W2WJZMPAnw BHRTDRp0k1ugOpMmEr F4xHAfWHufW2tqhtHj fJWhYIJhNJk1kJ57CM AcgZ3lsMPlXVlaluHa EtV0JHsrAVOkJkL0FK NscDHfWRWbP4xmISIz XGdyZWVuMFxibHVlMC C0nUiks7D1cSXmtJXl dHtcZjBcZnMyMiBOb3 HgFZl4hGqlC8OjLPDc PlI3gELqMSVmRDnqYV HjRIOcjeQ2eC62DKik dyJ2dFRtr1Law49cd8 51bV9mbXInCYL2OSHm IXPkoEJbBIOtJXZ6SS InpHTdX1efSCUvYY4f cmdyMTgwMFxtYXJndD M8OQVkzEGcU8LuXWSi BTomQZWsccx1YsMhXy 6ijNDjzPcvZVukd0ny g0wiuHRrVkm4WPIfFs VxHczeENizr5Nkq7zn KWTxtz3dKVS0hCZmaA csp0P2iYVfUZXepQEw avHqTZAaClL7JByuSO 4xtc01PIIbTKW8ac4u bGNccGdicmRyaGVhZF vhL3BqRCRud972CRCc M4XfJUCmt5T2gxKaQn OtSABalEW5uiI2MRKv TXg7oQYqbfN1isPhuL YbB2vnbL4qKURpWV5e dggrq4xnMOrmEOdrFO DhoLZ5ppB8LBKicCEh Q1OiuW3qVLZlEXjvNB Rppxw4EwRtZq9rfKTl eTcyMFxzYmtwYWdlXH BnbmNvbnRccGduZGVj XHBsYWluXHBsYWluXG YwXGZzMjRccWxccGxh yZ4uOvSgMoDhIQbyNR 1eOEIxJ4wkcXXdJENw MJWqG7pnHwSdaC1ztO zhZRgnkbE1DCmuU12n MBR0IUR1gnNpPADczw KsYXLhYUNfWC9klRVh AQAbHMHgAY3pZCU9MG xvcGVkIGFuZCBwZXJm d0MkXE7tYCYdfFQvIO F9CCLzx0DiV2UgQRJ7 HDXkvH5vPNGuuACIYL BNRCBBbmRlcnNvbiBQ ZPFuk1bqF4bjXL7iJW kqEx2tSYGsixkgLRQq aWNpbmUuIFRoZXNlIH Bxa4CjMEwdfdDexf14 OVMlJV0ea8RzF4pzeD DkrOy7OYPtVMSlRPPj s5FeBHNkqm51QWGwAp nobCqhPYAuTa4vAt4c NBFgsiLrTZT0OqPZBA 9oebohsEAohKepfx1y XHBsYWluXGYyXGZzMj JcbGFuZzEwMzNcaGlj aFxmMlxkYmNoXGYyXG krH2vsRgDfRqXiWcma YXJ9 MD BarrientosPneumocystis jiroveci Quant, [id number] 14:08:45 Test Item Value Reference Interpretation Comments Range P. jiroveci Not Detected Not Detected Assay Range: 8 4 copies/mL to BAL-Viracor copies/mL 1.00E+08 copies /mLThe limit of (test code = quantitation (L OQ) is 84 6592) copies/mL. Pneumocystisjir oveci DNA detected below the LOQ will be reported as Detected:<84cop ies/mL.This test was develo ped and its performance characteristics determined by [employer]. It has not been cleared or approvedby the U.S. Food and D rug Administration. Results should be used inconju nction with clinical findin gs, and should not form the so lebasis for a diagnosis or tr eatment decision. Perfor med At:[employer] [address] [employer] [address] [address]Ieysglxmsn Director: Carroll Bill Ph.D ., BCLRobert (ABB)CLIA#: [id number]: DARCI (test From [facility] and code = DARCI) RML MD Lemus [id number] 22:30:33 Test Item Value Reference Range Interpretation Comments T4 Free (test code = 7502) 1.11 ng/dL 0.93-1.70 MD BarrientosHqzvxfqyUUK2692-52-62 22:30:26 Test Item Value Reference Range Interpretation Comments TSH (test code = 1.11 See_Comment [Automated message] The 2599) system which ge nerated this result transmit jigar reference range : 0.27 - 4.20 mcunit/mL. The reference range was not used to interpr et this result as sonido l/abnormal. MD BarrientosIzepyzlmEPR8750-06-37 05:53:04 Test Item Value Reference Range Interpretation [...] (test code = 20 mmol/L 21-28 L 45147-4) Base Excess Dom (test -6 mmol/L -2-3 L code = 1927-3) O2 Sat Dom (test code = 67 % 6513) Lab Interpretation (test Abnormal code = 53002-2) MD BarrientosPreparelliott fresh frozen plasma:Transfusion Date: 09/30/2020; Transfusion Indications: Prothrombin time greater than 18 seconds; G701, 2 [id number] 21:03:55 Test Item Value Reference Range Interpretation Comments FFP Product Ready 2 Fresh Froz en Plasma (test code = 76976-7) Availa ble - Order Form 03 when re will for product iss ue. Unit Number (test [id number] code = 7002) Product Code (test [id number] code = 7003) Unit Expiration (test [id number] code = 363731) Unit Blood Type (test 6200 code = 7004) Product Code Text PLASMA IR CPD (test code = 412561) Unit Irradiated (test IRRADIATED code = 181243) Dispense Status (test ISSUED code = 700) Unit Blood Type (test A Positive code = 7005) Product Fixture Builder .BPAM Location (test code = 531291) MD BarrientosFFP Product Ready for Pick [id number] 16:12:10 Test Item Value Reference Range Interpretation Comments FFP Product Ready B2 Blood Bank Product i s ready for for Fixture Builder (test picker machine operator on September 30, code = 207573) 2020 11:12:03 CDT. MD BarrientosCardiac [id number] 09:19:04 Test Item Value Reference Range Interpretation Comments CK (test code = 5206) 138 U/L 39-308 CK MB (test code = <2.0 See_Comment [Automat ed message] 5209) The system [employer] generated this result transmitted ref erence range: <=10.4 n g/mL. The reference r louis was not used to interpret this result as normal/abnor mal. Troponin T (test code = 123 ng/L See_Comment A < 19 ng/L 9384) Bentley ggest retest at 3 to 6 [...] res ults. [Automated mess age] The system [employer] generated this result transmitted ref erence range: <=18. Th e reference range was not used to int erpret this result as normal/abnormal . Lab Interpretation Abnormal (test code = 57101-3) MD BarrientosDifferential Nbbhru1154-01-12 20:04:48 Test Item Value Reference Range Interpretation Comments Diff Cancelled (test See Note Due to low WBC, the code = 8954) differential wi ll not be performed and i t is not possible to michael culate ANC. MD BarrientosRespiratory Viral Panel + COVID-19, Nasopharyngeal Nqhd1328-38-14 14:00:06 Test Item Value Reference Range Interpretation Comments Adenovirus (test code = Not Detected Not Detected 5481) Coronavirus 229E (test Not Detected Not Detected code = 5349) Coronavirus HKU1 (test Not Detected Not Detected code = 5350) Coronavirus NL63 (test Not Detected Not Detected code = 5351) Coronavirus OC43 (test Not Detected Not Detected code = 5352) COVID19 (SARS-CoV-2) Not Detected Not Detected (test code = 72254-7) Human Metapneumovirus Not Detected Not Detected (test [...] Detected Not Detected Parapertussis (test code = 67335) Bordetella pertussis Not Detected Not Detected (test [...] including SARS-CoV-2, from a single nasopharyngeal swab (JOINERY MACHINIST) specimen. Specifically, the SARS-CoV-2 primers contained in [...] and high-complexity tests. The Microbiology [facility] at [facility], CLIA Accreditation #[id number] and CAP Accreditation #[id number], verified the performance characteristics of this assay. [facility] performs the assay using the [employer] System. Internal controls are used to monitor all stages of the test process. MD BarrientosHTLV I/II Ab Confirmation Cbjt4924-23-20 20:06:14 Test Item Value Reference Interpretation Comments Range HTLV I/II Positive Negative A REPORTABLE DISE ASE. [facility] (test Confirmatory test is the code = 5844) definitivetest for HTLV-I/-II infe ction status. HTLV I/II See Footnote RESULT: Reactiv ity at [facility] (test p19-I/II, p2 4-I/II, code = 5843) gp46-I/II, gp21 -I/II HTLV I/II HTLV-II -----ADDITION [facility] (test AL code = 5845) INFORMATION---- --This test was developed and its perform ance characteristics determined by [facility] in a manner consistent with CLIArequirement s. This test has not been cl eared or approved bythe U.S. Food and Drug Administra tion. Test Performed by:[facility] - [address], [place], [place] [address]Gmr Direct or: Alonso Neville M.D. Ph.D.; CLIA# [id number] Lab Interpretation Abnormal (test code = 46213-0) MD BarrientosT-spot [id number] 19:34:54 Test Item Value Reference Range Interpretation [...] Negative A Invali d test - There 9362) were >10 spots in the negative contro l well.Performing Lab:[address] [address] [facility] (test See Note Result [...] ulgai, M. gordonae, or M. marinum. Alter moapa tests would be required if the se [...] test. Lab Interpretation Abnormal (test code = 33729-3) MD Chaney B Surface [id number] 18:30:51 Test Item Value Reference Range Interpretation Comments Hep Bs Ab-Houck Positive Patient is co nsidered to (test code = be immune to in fection 83474-5) with HBV. ----REFEREN CE VALUE -----Unvaccinat ed: NegativeVaccina jigar: Positive Hep Bs Ab [facility] 1000 mIU/mL --------- REFERE (test code = NCE 5193-8) VALUE -----Unvaccinat ed: <5.0Vaccinated: >=12.0 Test Performed by:[facility] [employer] [id number] [place], [place] [address]Wqi Director: Skuhwinder Neville M.D. Ph. D.; CLIA# [id number] MD Chaney B Core Total [id number] 18:30:50 Test Item Value Reference Range Interpretation Comments HBc Total Ab-Houck (test Positive Negative A If c [facility] code = 48174-0) indicated, t esting for Hepatitis B Cor eIgM antibody is nec essary to differentiat e between acutean d past HBV infection. Test Performed by:Tn jos [facility] [employer] [id number] Dir el: Alonso asher M.D. Ph.D.; CLIA# [id number] Lab Interpretation Abnormal (test code = 04164-1) MD Shiv Upton [id number] 18:30:27 Test Item Value Reference Range Interpretation Comments HBe Ab-Houck (test Negative Negative Test Perf ormed by:Houck code = 42995-9) [facility] i[facility] [id number] [place], [place] [address]Lab Director: Sukhwinder Neville M.D. Ph. D.; CLIA# [id number] MD Chaney [id number] 18:12:19 Test Item Value Reference Range Interpretation Comments HBe Ag-Houck (test Negative Negative Test Perf ormed by:Houck code = 34949-6) [facility] ior [id number] [place], [place] [address]Xfr Director: Sukhwinder Neville M.D. Ph. D.; CLIA# [id number] MD BarrientosBeta 2 Microglobulin, [id number] 17:21:30 Test Item Value Reference Range Interpretation Comments Beta 2 Microglobulin 2.02 See_Comment H ------ ADD CSF (test code = ITIONAL 1950-) INFORMATION---- -------- -------This frida t has been modified f rom the piece dyer'si nstructi ons. Its perfor angeline characteristics weredetermined by [facility] in a man ner consistent with CLIA requirements. T his test has not been cl eared orapproved by t U.S. Food and Drug Administration. Test Performed by:[facility] [address], [place], [place] [address]Gpa Direct or: Alonso asher M.D. Ph.D.; CLIA# [id number] [Automated mes eva] The system [employer] generated this result transmitted ref erence range: 0.70 - 1 .80 mcg/mL. The ref erence range was not u sed to interpret this result as normal/abnor mal. Lab Interpretation Abnormal (test code = 10013-9) MD BarrientosFlow Cytometry Specimen Collection -[id number] 13:48:34 Test Item Value Reference Range Interpretation Comments Flow Cytometry Yes Test performe d by:The (Received) (test code Reinaldo ribeiro [facility] = 8319) [facility] Cyto metry [address] [place] [address] Wonaker Ap Link (test [id number] code = 02360) MD BarrientosAnion [id number] 11:30:49 Test Item Value Reference Range Interpretation Comments Anion Gap (test code 9 See_Comment [Autom ated message] The = 1981) system which ge nerated this result transmit jigar reference range : 4 - 14 mEq/L. The refe rence range was not used to interpret this result as normal/abnormal . MD BarrientosChloride [id number] 11:30:48 Test Item Value Reference Range Interpretation Comments Chloride (test code = 110 See_Comment H [Auto mated message] 9552) The system [employer] generated this result transmitted ref erence range: 98 - 107 mEq/L. The refe rence range was not u sed to interpret this result as normal/abnor mal. Lab Interpretation (test Abnormal code = 99499-8) MD BarrientosRnfaahvlHkakbmywr8282-58-04 11:30:46 Test Item Value Reference Range Interpretation Comments Potassium Lvl (test 3.7 See_Comment [Automa jigar message] The code = 6854) system which ge nerated this result tra nsmitted reference range : 3.5 - 5.1 mEq/L. The reference range was not u sed to interpret this result as normal/abnormal . MD BarrientosSodium [id number] 11:30:44 Test Item Value Reference Range Interpretation Comments Sodium Lvl (test code 145 See_Comment [Auto mated message] The = 8311) system which ge nerated this result tra nsmitted reference range : 136 - 145 mEq/L. The refe rence range was not used to interpret this result as normal/abnormal . MD BarrientosGlucose, [id number] 11:30:36 Test Item Value Reference Range Interpretation Comments Glucose Random (test 123 mg/dL 70-199 Effecti ve 10/21/15, the code = 9360) glucose referen ce intervals have been updated based o n [employer] tia delines (Standards of [...] increased risk for diabetes MD BarrientosCarbon Dioxide [id number] 11:30:31 Test Item Value Reference Range Interpretation Comments CO2 (test code = 26 See_Comment [Automated message] The 5296) system which ge nerated this result transmit jigar reference range : 22 - 29 mEq/L. The refe rence range was not used to interpret this result as normal/abnormal . MD BarrientosUric Acid Nmrkfmlphnb9373-16-62 10:54:26 Test Item Value Reference Range Interpretation Comments Uric MICHELLE (test code = 7956) 5.4 mg/dL 3.4-7.0 MD BarrientosHIV-1 DNA and RNA Qual [id number] 01:05:28 Test Item Value Reference Range Interpretation Comments HIV-1 Undetected Undetected Repeat testing in 1 to 2 months DNA/RNA is recommended for those atrisk [facility] of HIV-1 infect ion. (test code ----ADDITIONAL = 18535) INFORMATION---- Th is test was per formed using the [employer] RealTime HIV-1Qualitative assay ([employer] [place]) .This test was developed and i ts performance characteristics determined by [facility] in a manner consistent with CLGenesisequirement s. This test has not been cleare d or approved bythe U.S. Food and Drug Administration. Test Performed by:[facility] [address] [place], [place] [address]Qnw Direct or: Alonso Neville M.D. Ph. D.; CLIA# [id number] MD BarrientosCell Count w/ Diff [id number] 21:19:32 Test Item Value Reference Range Interpretation Comments Type CSF (test code = Tap When r eviewing the 78735-3) cell count and differential re sults, clinicians caliu marlee consider the le ngth of time between spinal fluid collection and testing and the clinical condit ion of the patient. Appear CSF (test code = CLEAR CLEAR When reviewing the 52980-1) cell count and differential re sults, clinicians caliu marlee consider the le ngth of time between spinal fluid collection and testing and the clinical condit ion of the patient. Color CSF (test code = Colorless Colorless When reviewing the 31686-9) cell count and differential re sults, clinicians [...] the patient. [Automated mess age] The system [employer] generated this result transmitted ref erence range: 0 - 5 /m cL. The reference r louis was not used to interpret this result as normal/abnor mal. RBC CSF (test code = 13 See_Comment H When re viewing the 792-2) cell count and differential re sults, clinicians shou marlee consider the le ngth of time between spinal fluid collection and testing and the clinical condit ion of the patient. [Automated mess age] The system [employer] generated this result transmitted ref erence range: 0 - 0 /m cL. The reference r louis was not used to interpret this result as normal/abnor mal. Tot Cells CSF (test 100 When rev iewing the code = 74628-6) cell count a nd differential re sults, clinicians shou ld consider the le ngth of time between spinal fluid collection and testing and the clinical condit ion of the patient. Neut CSF (test code = 0 % 0-5 When r eviewing the 28472-3) cell count and differential re sults, clinicians shou ld consider the le ngth of time between spinal fluid collection and testing and the clinical condit ion of the patient. Lymph CSF (test code = 82 % 28-96 When reviewing the 51267-2) cell count and differential re sults, clinicians shou ld consider the le ngth of time between spinal fluid collection and testing and the clinical condit ion of the patient. Histiocyte CSF (test 18 % 16-56 When re viewing the code = 19404-4) cell count a nd differential re sults, [...] patient. Lab Interpretation Abnormal (test code = 25848-8) MD BarrientosFC B-Cell Lymphoma Panel Collection, [id number] 16:06:33 Test Item Value Reference Range Interpretation Comments Flow Cytometry (Received) (test code = Yes 8319) MD BarrientosGlucose [id number] 15:38:52 Test Item Value Reference Range Interpretation [...] patient. Lab Interpretation (test Abnormal code = 49736-4) MD BarrientosProtein [id number] 15:38:50 Test Item Value Reference Range Interpretation [...] w as sent to a code = 84592) reference lab for testing. Expec t results on Hepa titis B Core Total Ab w ithin 96 hours. MD BarrientosHTLV I/II Ab Screen with [id number] 03:31:41 Test Item Value Reference Range Interpretation Comments HTLV I/II Ab Reactive Negative A Confirmatory te st is Screen-Houck (test code order ed. Confirmatory = 51300-8) test is thedefi nitive test for HTLV-I /-II infection statu s. Test Performed by:[facility] [employer] [address], [place], [place] [address]Qha Dir el: Alonso asher M.D. Ph.D.; CLIA# [id number] Lab Interpretation Abnormal (test code = 33805-4) MD BarrientosCMV Ab IgG+IgM Path [id number] 21:16:58CMV Panel PRPositive IgG with low IgM suggests previous infection. IVIG can give false positivity.High titers of IgG can give false negative IgM. Therefore, active disease ispossible but less likely with this pattern.Reviewed and Electronically signed by Pathologist:BRIAN MCCALL MD #[id number] Comment: Test performed by an immunoassay intended for the qualitative detection of IgG and IgM antibodies to Cytomegalovirus (CMV) in human serum. When equivocal results are obtained, another specimen should be dapmbytoj16-74 days later. MD Matthew LUCERO [id number] by: MD Matthew LUCERO [id number] Date/Time: 09.21.2020 16:16 PM CDT Transcribed Date/Time: 09.21.2020 16:16 PM CDTElectronically Signed By: MD Matthew LUCERO [id number] 09.21.2020 16:16 PM [facility]MD AndersonCMV Ab IgG+[id number] 20:19:53 Test Item Value Reference Range Interpretation Comments CMV IgM Int (test code = 5219) Negative Negative CMV IgG Int (test code = 5217) Positive Negative A Lab Interpretation (test code = Abnormal 45967-4) MD BarrientosCytogenetics Specimen Collection -[id number] 17:21:02 Test Item Value Reference Range Interpretation Comments Santo Brennan Link (test Collect ion date/time code = 73199) has been modif ied to: 11:53:00. Prev ious collection date/time: 11:53:00.Shamarc jigar from [id number] [NA] on 09/21/20 12: 21:01 CDT by Beba Mckeon. Cytogenetics (Received) Yes Kyra ection date/time (test code = 8304) has been modified to: 11:53:00. Prev ious collection date/time: 11:53:00.Shamarc jigar from Yes [NA] o n 09/21/20 12:21: 01 CDT by Beba Mckeon. MD BarrientosTMAtilio HIV 1/2 Ag&Ab Path [id number] 17:39:04 Test Item Value Reference Range Interpretation Comments HIV 1/2 Ag&Ab Negative for Interp (test HIV-1 antigen and code = 9394) HIV-1/HIV-2 ____DNEISALY antibodies. No Tri GEE d by: laboratory Violet IBARRA evidence of HIV Date/Time: 0 09.20.2020 infection. If 12:39 PM CDT acute HIV Transcribed Marck e/Time: infection is 09.20.2020 12:3 9 PM suspected, CDTElectronical ly Signed consider testing By: aldo WILSON for HIV-1 RNA. 09.20.2020 12 :39 PM MD AndersonHepatitis C Virus RNA Detect/[id number] 03:20:30 Test Item Value Reference Range Interpretation Comments HepC RNA PCR Undetected Undetected IU/mL Result in l og IU/mL is FlorindaOropeza (test Undetected. code = 5881) ----ADDITIO NAL INFORMATION---- ----The quantif ication range of this a ssay is 15 to 100,000,000I U/mL (1.18 log to 8.00 log IU/mL). Testing was per formedusing the melissa HCV t est ([employer]with the c jabier Spot formerly [employer] System. Test Pe rformed by:[place] [id number] Director: Sukhwinder Neville M.D. Ph. D.; CLIA# [id number] MD BarrientosHIV-1/2 Antigen and Antibodies, Fourth [id number] 23:43:58 Test Item Value Reference Range Interpretation Comments HIV 1/2 Ag & Ab, Non Reactive Non Reactive Performed a t: 4th Gen (test code [facility] = 9280) [address] [address] MD BarrientosTMP RPR Path Rdlddiljuzugvq5791-07-07 21:45:35 Test Item Value Reference Interpretation Comments Range TMP RPR Path The Rapid Interpretation Plasma Reagin (test code = (RPR) assay is TONA RLY 817834) negative. If a Lois GEEat ed by: syphilis CECELIA infection is Violet GEE suspected, Date/Time: 08.26 please perform 16:45 PM CDT a Treponemal Transcribed Marck e/Time: specific 09.19.2020 16:4 5 PM screening CDTElectronical ly assay. Signed By: MARGARITA GEE, on 08.26 16:45 PM MD Barrientos Hepatitis C Virus Ab Screen, Reflex HCV [id number] 17:27:33 Test Item Value Reference Range Interpretation Comments HCV Ab Screen-Houck (test Reactive Negative A Sup plemental testing code = 89381-0) for HCV RNA is ordered to rule outactive HCV infection.Signa l-to-c utoff ratio is >=8.00. Test Performed by:[facility] [address], [place], [place] [address]Lqm Dir el: Alonso asher MJorge Luis. Ph.D.; CLI A# [id number] Lab Interpretation (test Abnormal code = 54382-5) MD BarrientosRapirobert Plasma Reagin (RPR) [Syphilis SCREENING]2020-09-19 08:01:35 Test Item Value Reference Range Interpretation Comments RPR Screening (test code = Non Reactive Non Reactive ) MD BarrientosTransferrin with [id number] 20:17:24 Test Item Value Reference Range Interpretation Comments Transferrin (test code = 197 mg/dL 200-360 L 7653) TIBC (test code = 7532) 276 See_Comment [Au tomated message] The system whic h generated this result transmit jigar reference range : 250 - 450 mcg/dL. T he reference range was not used to interpret this result as normal/abnormal . Lab Interpretation (test Abnormal code = 69548-5) MD BarrientosIron [id number] 20:17:23 Test Item Value Reference Range Interpretation Comments Iron (test code = 59 See_Comment [Automate d message] The 6066) system which ge nerated this result transmit jigar reference range : 59 - 158 mcg/dL. The ref erence range was not used to interpret this result as normal/abnormal . MD BarrientosPTH [id number] 20:12:22 Test Item Value Reference Range Interpretation Comments PTH Intact (test code = 6769) 157.2 pg/mL 15.0-65.0 H Lab Interpretation (test code = Abnormal 60945-2) MD BarrientosPeripheral Smear for Bone [id number] 19:36:57 Test Item Value Reference Range Interpretation Comments Peripheral Smear (test code = 4273) PSMEAR MD BarrientosConfirm [id number] 22:43:56 Test Item Value Reference Range Interpretation Comments ABORh Confirm. (test code = 882-1) A POS MD BarrientosEchocardiogram 2D [id number] 22:36:42 Test Item Value Reference Range Interpretation Comments EF (test code = 60 [id number]) PXN (test code Adrian Green MD - [...] Dyskinetic3-5 moderate5 - Aneurysmal 6-14 large 15-16 hvutrbg2Z imaginD volumes were not performed in this study.Cardiac Mechanics/Speckle Tracking Imaging:Speckle tracking imaging was not performed in this study. ([facility]).Diastology:Impaired LV relaxation pattern of diastolic dysfunction, [...] Index: 45.1 ml/m2 ESV (MOD-bp) Index: 18.0 ml/p7NRLHI (>1.6): 2.4 cmDoppler Measurements MV E max [...] 14.5 MD BarrientosInfluenza A/B + COVID-19 Asymptomatic- [id number] 19:32:50 Test Item Value Reference Range Interpretation Comments COVID19 Not Detected Not Detected (SARS-CoV-2) (test code = 92370-4) Influenza A (test Not Detected Not Detected code = 05185-4) Influenza B (test Not Detected Not Detected code = 70665-1) COVID19 SARS Inpatient Indication (test Admission code = 61022) Inf AB+Cov19 See Note The melissa SARS- CoV-2 Comment (test & Influenza A/ B code = 40756) nucleic acid t est for use on [...] sheet for patie nts provided by the piece dyer ([employer]) can be rev iewed at: https://www.fda .gov/m edia/210774/tequila nloadA fact sheet for Health Care providers is provided by the piece dyer ([employer]) and can be reviewed at: https://www.fda .gov/peter abelia/276471/tequila nload Influenza A and Influenza B neg ative results should be considered presumptive in samples that walsh ve a positive SARS-C oV-2 result. If co-infection wi th influenza A or influenza B vir us is suspected in sa mples with a positive SARS-CoV-2 resu lts, the sample shou ld be re-tested with another approve d influenza test. This assay has been authorized by isidoro chavira [facility] for use only un nahomy Emergency Use Authorization ( EUA) in laboratories that have been CLIA-certified to perform moderate-comple xity and high-comple xity tests. The Microbiology Laboratory at [facility], CLIA Accreditation #[id number] and CAP Accreditation #[id number], verif ied the performance characteristics of this assay. Int ernal controls are us ed to monitor all sta ges of the test proces s. MD BarrientosBLOOD [id number] 13:00:00 Test Item Value Reference Range Interpretation Comments CULTURE (BEAKER) (test No growth in 5 days code = 1095) BLOOD [id number] 13:00:00 Test Item Value Reference Range Interpretation Comments CULTURE (BEAKER) (test No growth in 5 days code = 1095) Pathology Biopsy [id number] 22:57:15 Test Item Value Reference Range Interpretation Comments Submitted Clinical History u5dynUQpFRHby7xzCGY (test code = 18537) mbGFuZzEwMzNcZnRuYm pcdWMxIHtccnRmMVxzc 8YgP4BsDpKbZEjkouRq XGRlZmxhbmcxMDMzXGZ 0bmJqXHVjMVxkZWZmMH jnGo2cvLOskWauPbUeK OGlp7bvdnRIqcgsnId3 g6jtHKZmBpE4pUJiTTx uA2gjksPylUQuEEUuQB k4aG76RYInpY3nyIMrG YhthtOhEvZ3EDsqHETy NuX7ZETibIPtVJWiW9l yZWQwXGdyZWVuMFxibH BwFDT3tMhgt1C1cYNie GVldHtcZjBcZnMyMiBO y5DwAJv9iInaT0GcZAH wStJ5lFXtMMZiRMamOU JlLLWrbrP3eU55HDzlb bI8jYQoq4Voz24ns670 kQ8dvSItWCC5QFIpODD tcBOnHISuPRQ5QOEctV FiZ8wvWBIcSZ8hfxtjH SdpHDhgKASrnGB2XUIk eFVvB5WoVNZfYQouFFS vjev3EtSfOe4wgQPvhA xfBCvhp0htt0phlQCbQ ej0FZBuDeLpKvnlTUaf c3Nnn1elHORlmd9sTSS 5eUCixBxyl7G4zGNbEI VuzUFrccIhPCWxKcZ8Q UcpGW3tuk67EJBkBYB6 nv7lhMGlpJyzmtSwqKM dJFcwQ1PlRHTqb907CT WjD8JnAPPsw0D6zwRxI uNdQIFcvZE7onQ1EFXb QYx4aPEoloO8xvIrhCX vG4hemG2fPQXkGN8sfe lfo5jgJSpqNSkzHPYrj AK9enH8QZKomRRcR2Qw wR6vXHQgITppKQBrdmj 2PkNwOe5nnNEujLheUR xzYmtwYWdlXHBnbmNvb nRccGduZGVjXHBsYWlu XHBsYWluXGYwXGZzMjR atLiosIpnmZ0uUtHaIs YfSHwrSJ1kDQByE8heh RFzRXBjKFDrV7xgNrFf gB5itTepWBhkflBwCY0 av1Hsc3XurfBkdjNgAd IyLjFdXHBsYWluXGYxX GZzMjJcbGFuZzEwMzNc aGljaFxmMVxkYmNoXGY hVHlvK5ljHtXbMyQoPq tyMAQ7jY== Diagnosis (test code = 34) y5nmbIGhLLFwdIE3VPN tYNZmy0qxh2IzjIBgxO IdEIibqNUvctMsgn60o RK7kR23OJ4sJBIvHqN3 PYYijiK5Wsf2PCHbZGR xlBPuV503l2uno3vvik WmqMN7DWOsZEDxR7OsE E4xYSPpqJElI15ixZKd RHI3BKUpHWEvfTFdOJE xIZX9UOUnsUSxW0tuES AoHA3tdvdzNCjxJZoyO JVuhXH1LEXzyFBwM8Hd OGDnSYrcJQTlcwb6RoT vNq5axSJwrFowQRxyHM JkXHBsYWluXGZzMjJcY 3TnAN8yE9xwmBYofyhc kSPxcWnvC33jRINevS5 hn3lirpgmcVLpGCSlhu m9ZTZlBXnAStQCDBJEZ VJHRSBCLUNFTEwgTFlN QJzUNKPvED7CBg9DQMI IDW9TEVVVMT0WUZYkAj 8EITlOQDRYOD9VJZbTR Cllm4PfXVKncG3spiGf uFNsTHRqstd6TNTxYIe WAGXxSDNSS0poKoBwrK DfOTZztO5eKIeoSY06l PNqCVBsCqkqhZ6ytJ3i uEfeyN4nbRQusVG7vtg hBII1mHStlyIsdzuzRJ Hhz8RheFKkTNjdsbBib 58dIDBiJY6rpUdkRPrf YXJ9 Comment (test code = 9835) b5osbOIcQVElmAP2QVU aBGKkp6frk9FszOLtqD ZvDHhsuKMtqdTxri53i OE8fM04SV3pIGCmKcW9 XMCkmtY0Ide6PEDlUGB tjOVkN706r0pmk5evgd AvzBC5RUJaAWIkE7ExY B9wQNXanJFrO77mhPYq SRJ8XDTtLZGtiHPkEPC kFUF0ZVTxtLInE7bhOO QdTM9iqrylNDksANnrJ HJskGU0SUSiiGBgJ1Aa GLTiTRhgLXUnqzx5PlU aBh8siQXaoYzzONljDY JkXHBsYWluXGZzMjBcY 8AcUMPcEUDprNC5w4xz X6lrRWBlB0Zge94kISQ hi8rmPqMfJ34gwrRmQW 9tXXLsAjIrcQqzt6DoE LJjLpE5c3DncOPekfQi YYj7RQ5hdTByrZfetC4 6r5p8TFQrXvjznKzcaR hvbWEuICBUaGUgbHltc MonhHAwbEYjG68uyPVy p9QrSA1oIDJsIEQ1yrT hTzDmRVEvLSQexH8mhM 5iLRAyKSvtlhJ1qWMvQ AKmZN6hn5YiwHbmBQ17 J8uwrJphwLKcKMg4wJO qBH55G4ufTXDeI91gqS 91cnMsIGZpbmVseSBka FXqGJVpUBGuq6EolgCw sQJ3kTTlQPGcne0vHLU pbiwgZnJlcXVlbnQgc2 mxO9mkLNBtPDRleo9zm Z5junPdNA4tkD4fnRdt aRzyDW29J5kxo9gwGJB nJPJnfVViLPYzjD23qt TdTP2uDRYddJNnZ6d5z 6MrAZXcKtRhQOh7h5Ab HwLfrZv8zaZlELUmULT lYXNpbHkgaWRlbnRpZm poPcvvDUCvZBXhyS9xq L28qMZjMo0cpZFpCOUb ECExfV4yow89ty3cIYJ mZHZtWKhzWI0uuzvoSA BjcnVzaCBhcnRpZmFjd BGttlRnh4DrrLFqaiJl qzKfxI8xVuV9dPKmCSK 7bCSfd2a2CLHlmFHtp9 AbkbPlioH3cYVpMuFht 0fmg2ObYM1cvJXpZYQf wsVDhU43fl3opMW3u1F gRN9bX9SmLAN9HOsbxU 9wOQRiv6fgXGFkJAVwq ObdZJ1mk7UiUWQ7zJJv H7YcbYSuPHPnLXOgm5f 0aXZlIGZvciBDRDIwLC BDRDIxICgzMCUsIHdlY NflNQM2YvRvrAhfVGLC NFVzDQKUZRUzGN8VHPW nWI65CILtIHBIIXEjKB C1pu6bMvzjxnbqYGcuS K6wDQVHHVArUUJkUUZd GFsszQr1YEMpo5JhC9S 1LCBDRDEwLCBDRDMwLC RIX1a7YTs+MjAlLCBiZ UygpdY1wCWcK3L4q1Rc OBdfS1htgWhwQZKnWSM rZXJhdGluIGFuZCBwYW 6wQGileg0mVLIbJIKjO 5y7OIgcQbPwARecFJKA PaSxhaGiW6D5GVK5DBr ucyBoaWdobGlnaHQgc2 LhjLJtzlAeHFQvbAp9Q JVwKWCipK2fnC6shWOn ks4eBDRmJCLTRFWnZSZ 6RKawAElpFC0bp5UifT EsliTdAECdoiVwZg4sQ BAiyPolE3LdCZQtXLHk ZHJpdGljIGNlbGwgbWV zaHdvcmtzLiAgVGhlIG 8zk6ZvEKK2jRTnH0Hsa HRfiBM4EHUmMTQza2ku IeAoLWEyv65ejI7nQQe mw3YwQZKelg72dI5wnM FbsAI4KWDiOnibW6dgH uazh6EayJ2tybjuRXJC QkVSIGluIHNpdHUgaHl icmlkaXphdGlvbiBpcy IcKYrbwMf4MS9jKNrtD NPmjFDgTBTdlqM8yFUs O5hhprntMBaurk65PLZ gLCC9mUfoUNjeITKzGr JypHTahr4bpEKomNWyQ BIcBQMxjpXlgzdkj4j6 dACiYWTfWlZlN25tdCD qdYLnQYIuOL6te2CiGY IsDPGmgzMirD8rpUaaH CtvVsVxu8Eydx4hZ1br gMIbqXJmeG0mVZBemDP nmUWqPYQuG0s1SA9rBM KalaTxa8KmVXOjy0Xie mVjayBlbmxhcmdlZCBu z4YatjF7rOApCTylfXC aENDsH7aqlQSerOQuQM LfenX5GjzoF40tXFDcW KSyNuCvK51zNL1mOKJm ZWQgbGVmdCBzdXBlcml oifFfTAUfIX4pJUDbXG WEWNIdKUIlcr1ifZTdq 2OcIMgeQ61sr6etMW6n POx6kSEra52nHrpmSVX zeDNvQU08EUHrbRjhEV SzVZPnf9YcjO5xl3kaB kZrmlBtfJ8jsP4zqVqs vr03nQPiMlCfiT5znP9 tdvShpYOnd7Q5TFAkVv S8f5LpnHFbR2NjNi6cE JjiYWs5yYGnt18nXf4n E8LwJBApETSlgP96lx1 erODuv0I8hArzFYDnnr GucfbsOHQ9nOLsmmPiM GlmZnVzZSBsYXJnZSBC LWNlbGwgbHltcGhvbWE qc0Smil9aTDlcjf9jsm FsIGNlbnRlciBsaWtlI FTmFX1twFclKOfeGVMq g1TztV1tZRMqZLEgMTZ wJQPdz5Nsy0RfOJHerx IjcXXuwP8kQVVqt54tX oQcAVI8VDinkiU9GKXb YXVdIvX7BX47UiqcGwK zDty8i3Qvv6TgdxOaPS luIHNpdHUgaHlicmlka FqfhUcqhhOux1AeyqFp cnJhbmdlbWVudHMgaW5 8j9b5nF1nTA5IOracGh NMMiBhbmQgQkNMNiBhc vAwmR8rVPD2XWt0YMRk AETcYHM1gYCaMApidIv cGkUalsVig7X3NCYcv7 VwYXJhdGVseSBhbmQgd AnxUTPbBYqxi6KjiaCf ZTJge9IlHOcuLT5bZCY mMG2tnEBtiN== Gross Description (test l3zykSMiYBVvqBCGBYJ code = [id number]) lV4ezlyZeTJAyvYLvA5 WijhdoJYeqGQ6qXL0cp RlklCYtxHUlXD4SNBIt ZmYxXHBhcGVydzEyMjQ lEYPzyDBruCR0TICaVF 1hcmdsMTgwMFxtYXJnc fP8KUHltZHhR8GwCKLa HN5zqidzXFK9SEnkgZ9 eaeOUOyvhMz4bqHYrtZ tcZjFcZmNoYXJzZXQwX YCazZnlQPArUZh0tI1R YpnyR64sm8R3Wqa1BTW uKVCvV3HxTP8uNYPvbQ NpQ83QQenrWXF2GUKFV nibZUTcCS3Pj9hwHQDc tIPoEGT1ZYejlVDrLKK wPIStAMv9SQJiRPhtkJ RqGK6vhYkaAkbesBeue 2VjdCBcXGlkIDUxMDAy KWbwTBKgRF3HDlYgREL wIod2FPTeIQc9QFr9BT 4FPiYvYJWxXQz3CRQlH MDfIRn4RZnmIA3UHTv6 YID6EdA5FXM7VSLmTMT cXHQgMiBcXGYgQXJpYW wgXFxmcyAxMCBcXGZiI MinOvlhFXbqW51qdUrc cY8zTaxdftDmMGA2GJK hciANClxwbGFpblxlcG ljTmVzdERvYzEgDQpcb HRycGFyXGxpbjBccmlu MCANClxsdHJjaFxiXGN hTAiamlZrVS9yG8mjHQ xlZnQsIGxlZnQgbmVja yBtYXNzIGFwcHJveCA9 MHXpUfEmaNR9DdYhC86 8IIPgDMAlOQXmEDUne7 RkhpOyFyDwcR6kXKCiS dKjnOhfv6SiJACxRYYi YWdncmVnYXRlIHRvIDE vJtX9KOHeSsQ5DBDyDM VwgKfxOQ15hXMfqMgum 6FkpQe5nXCkKSbpZSTs TgDtMJDmh8UnK6H3AVT sZVmvn4ywDZIoRKfue8 FuDKsVRCLEFC8KWY1kp ML6HNuXN4ZLA4qBkEOe YWZ6qMR3LMGUKnptoQP 5gQQ5yL22FMQrMSIouN ZbMGunJ404L5H7FCIsR Ybkc9gjGIQeNFvqk3Ur DSdSWBPRMH6ZNS2gvUK 5GOlQF6IWNQquVWFvJr acwYFLZRC3TYrifWovf Is2w0ofoLIrf4b2MHom YLZ5vQfjjJRmsgjoyER kiMribcWiDX8ZNCPmIA hzGTBnuBWIZGK5TA0lP PwzzZPggzjcCBWfM8Jo Y3MksqTkuPWxMXPulfJ di5esXWB4NVLuaNEmyF EeZmGaSyagBLM6GXacu 0klWUR0GTLocMUcgSTr FRcxYcHlKdjwUVYpI2W bI8IkfeX7DWc7 Disclaimer (test code = u8pmpXEbLEKmgWGhDjV [id number]) cXCBfLZAvx3ybLQNtkP FuZzEwMzNcZnRuYmpcd MRvFUTsRuSra2nqf938 fPKhk7bkOFOxXxU4fLV lJQGqnWSkY748ICRxUH tkb2fjt4FmBWDydDPfn 4U9PWHLfdsleYh0gYqi S28qq9T3CsjcI7ybKFD vAYXaQ9AwGF3kIRVuYi w8JKF0NXV2FAIiOUFpX 6EnYA9sOEYxeENlAUi0 f4rzyDtbZIHfMFN4v1s uASikxcSvDN9ege4hvS m0i2huyoTnKHKzZNAte JJBIAUfQ4FqyOhsLs5a hWs8lGfaSjxtSVJ8Mrt 8SJ9udk82ngw2kHksUD InfnllRbH1RMuwTZQkz rfuKKt5IKhnSPIpuKO7 GAHudJMmC7DmLIUwZS0 rbez9KBN8GBjtAEZfZj H0DKZebGTwHFUccSgmW Lztd632GPZ8KsFdJA1q E1Eag2H7xO5dwOHrRPT aiYKzZkVrALWwkj1gvN PeAHbdq7LhNZH7qnD4l TQdpRNrNXAtOM43Jeqr y7PlUpcuCMR2OEQhagD lf6Nvk9fmBoElvkAbL3 faJ1SoEHInHNThXWHqN pXgawMem8Yyp3AlaHKd zLz9y7rgPOOjIIXpqJn fp9bpBZI8FQDwH6G1gJ Kzd9hqPJzuKIVkkVX9t hD9AMCdbHYkB2TtsG8v GTUgFM6keqw3d3jxRVI 8IYrqDRDfGyX6uyA2RN BcaGVhZGVyeTcyMFxmb 925EHR8HpOnFJXkd0Pe A4SroRleL84toNkmQ50 pAJMatAvqxT6bhFelgH 5cZjBcZnMyNFxxbFxwb TGiucoqMFrlyhX5QKhp ptgxBRUkRTifB2viUmC jLXGfcLfiBKjbj7ByVY OfQFCdAfdnfhT6EQOVv 44qPRUpo0WkCIDyfV7i qCFiXXjarqVmgYE3WVn hdmUgYmVlbiBkZXZlbG 1kZNDyWG3uRAJbkhNdb z0gguRfXMHmTKIoS2Zo cmlzdGljcyBkZXRlcm1 jgxZzGTG8HCXMWH8EWK UzRVUko78dHPUeqWpim E5ibUBhszJhVXJfu4Ku bS0lrEYOJLXyM2mmYQ1 jMQnkx4XpnHUzjJQkqL X4XYArr8JoHeRiqtWvo MWzfNSpT7ZamXjvT0jh SNDvUTAhzdMwkJJgf5E tYOCynYP4gNYjKD9IUw MOm32sHZPgFFHHhjLwG RYqtFumsUH6vnS6bI6q LiBJZiBhcHBsaWNhYmx kNPPln128hk7suzW5HS BiVXSouusaf8RcARAhJ ZMeyD80SAApCHZrrd7w hydbaLFvkoUhQ3Rtrom 9qX1pSGPgFMczVXUwCR ZzMjJcbGFuZzEwMzNca GljaFxmMVxkYmNoXGYx TYwyY2iiZdNaAkZzMxs wYXJ9 AndersonCT, BRAIN, WITHOUT [id number] 12:22:00Unlisted Reason for Exam - Click Yes and Enter Reason Below->No [facility] 1950 Sex: MFINAL [...] MDReport Verified Date/Time: 09/11/2020 12:22:16 Reading Location: [address] Neuro Reading Room URINALYSIS W/ [id number] 11:21:00 Test Item Value Reference Range Interpretation [...] 1663) SOURCE(BEAKER) (test code = 2795) TROPONIN [id number] 11:12:00 Test Item Value Reference Range Interpretation [...] failure, acidosis, acute neurological disease, and persistent tachyarrhythmia.Hotbed Lever Operator ID - [id number] ACID, VENOUS 2020-09-11 10:57:00 Test Item Value Reference Range Interpretation Comments LACTATE BLOOD 1.55 mmol/L See_Comment [Automated me ssage] VENOUS (2) (BEAKER) The [facility] em which (test code = 2872) generated this result transmitted ref erence range: 0.50-<2. 00. The reference range was not used to interpr et this result as normal/abnormal . Hotbed Lever Operator ID - [id number] ID - [id number] ID - sofj15Awoiwrzj ID - [id number] CBC W/PLT COUNT & AUTO [id number] 10:43:00 Test Item Value Reference Range Interpretation [...] (BEAKER) (test code = 2801) COMPREHENSIVE METABOLIC [id number] 10:43:00 Test Item Value Reference Range Interpretation [...] S NOT APPLICABLE FOR DIALYSIS PATIEN TS. Hotbed Lever Operator ID - [id number] ID - [id number] ID - ohrg74Yrcrybsb ID - [id number] ID - dhlu73Keyluvwz ID - urto59Afyrajsx ID - hspo17Amfcelsu ID - qmos82Yxmfvovc ID - tkkj96Akwvwdjp ID - bgzu59Soidldtz ID - ynau93Yjtczsgl ID - jkil84Dbeqsuwo ID - zmuk25Wrvlfffw ID - wneh71Xpukbkro ID - hkuq43Wxltgpdn ID - ooxy81Ysnysvcl ID - gizc82Lpjhpiyc ID - umcy87Lamjcivl ID - [id number] KINASE (CK)2020-09-11 10:38:00 Test Item Value Reference Range Interpretation Comments CREATINE KINASE TOTAL (BEAKER) (test 266 U/L 40-250 H code = 380) Hotbed Lever Operator ID - [id number] TIME/[id number] 10:34:00 Test Item Value Reference Range Interpretation Comments PROTIME (BEAKER) 10.9 seconds 9.3-12.0 Final Infor mation (test code = 759) (Auto Outp ut) INR (BEAKER) (test 0.98 See_Comment Final Inf ormation code = 370) (Auto Output) [Automated mess age] The system [employer] generated this result transmitted ref erence range: <=5.90. The reference range was not used to int erpret this result as normal/abnormal . RECOMMENDED COUMADIN/WARFARIN INR THERAPY RANGESSTANDARD DOSE: 2.0 - 3.0 Includes: PROPHYLAXIS forvenous thrombosis, systemic embolization; TREATMENT for venous thrombosis and/or pulmonary embolus.HIGH RISK: Target INR is 2.5-3.5 for patients with mechanical heart valves.[id number] 10:34:00 Test Item Value Reference Range Interpretation Comments PARTIAL THROMBOPLASTIN 22.8 seconds 23.0-35.0 L Final Information TIME (BEAKER) (test (Auto Ou tput) code = 760) POCT-GLUCOSE [id number] 10:29:00 Test Item Value Reference Range Interpretation Comments POC-GLUCOSE METER 106 mg/dL 70-110 : TESTED A T SLSL 1317 (BEAKER) (test code [address], = 1538) [facility] 77 478: Hotbed Lever Operator/Techni mae ID = [id number] for Irene Dorman RAD, CHEST, 1 VIEW, NON [id number] 10:16:00Reason for exam:- >HYPOTENSIONReason for exam:->coughShould this be performed at the bedside?->YesH[facility]INGTON [facility] : 1950 Sex: MFINAL REPORT INDICATION: HYPOTENSIONcough COMPARISON: None TECHNIQUE: Single frontal view of the chest. FINDINGS: Lungs and pleura: Mild bibasilar atelectasis No effusion.Heart and mediastinum: Normal heart size. Unremarkable mediastinal contours.Osseous structures: No acute abnormality.Other: None. IMPRESSION: No acute intrathoracic abnormality. Signed: Jayne Maloney Verified Date/Time: 09/11/2020 10:16:33 Reading Location: [facility] Radiology Reading Room Cytology Image-Guided FNA [id number] 21:22:39 Test Item Value Reference Range Interpretation Comments Gross Description (test z8erbQXtOJKweKI9CDSsHO code = 5534006369) Cqs7bro0UegXHqhXYkOCkm dWEcbtJydn11sFB4aH07YS 3cURAxRuC2RSPrdtX9Lzx1 SCGjTCOyxSVzD550q0bbq0 nhqfNelUA4GMZeWLKfN9Gj GB9kBEWxjXDfN05joFNsZC E9SAUzBMYrcLSqJMKvOPL8 AOJdgTWuW3vnQBVeFT6hrx qiOQslCQzeCLSsvFM2JHUb qTVhW6HrPGHaXUmdDGMuxp a7ChVuRa8rvXEgbEdhTPtc COJfr9fvYSHgbCTyTGY5PJ jbzGUeZFPxJFXvPBm3RIPp WMlpjOBbPJ2wuYwnUzfdnH crn0ThqUBzNPqsLUHoAXAc DJfzSAElN5JBHXJiIgU5KV c3XgGxBCk0KCqfS5ACKQMm ANK0ATBkAYd4DdP2PPx6LM GWVb0mRbL0VzI3VsQ4MFI6 PhW7EUmhvPYaHCutPsqtAT xmIEFyaWFsIFxcZnMgMTAg QOozBfIeLE4waUuptXXxrr xiXGZzMjAgQTpccGFyXGIw XCYcBGGLtWUqwW9wyoKesS VoD8CwDAN9DEIekySlEGLc ZmYgUXVpazsgOCBQYXAgU3 CryR5bI4ysRTDdWSIxrcLv YZBqhQqdEVAyz2YnT2I4GV CkCVgyd2qsELLzYDuqf7Up OFhVMAMMOR4JKX3inVM9XV uVKZNMQ9cVuMJ8ArAjpQD0 IY63FQPkULTiuSUcWGkyN0 37F2mxGBAtFUUof1SuA4Sn o2gzfWMcAEruNtpwhWWsru C9VUgZLCMJXFsXPaMbFB2n PVdJTERCRUdJTnwyfXtcZm qjsnDwaQUvFmFzyJ2zdQ9u w0zaeDBoIMkfKorddGStxy Z4DYiCUUPJGBiXRtDqWV5i MMhOQALQXkD9Oo66SINlSN CzrMBdYLgqX651KMLbVVij EKFev6PrT6FsMnIzDJpzQv JrIMJimLatz3zfwCZdOBlr FrjmqJYkcnW8ZDmUESWROE oCXiGqPL1qPYcNY9LRIdI6 SkU6KyF1OBpkpGjzIqocla PvfOEoKrCnkY5cwEysyX9a ZnMyMFxjZjEgIGluIFJQTU pyqQUnPEVnE0a0y5AblR0a cGFyXHBhciBTaXplOiAxMS 36WHntHPFkwXosJWWuWL2r OGDuFUVfPXKhr7Tvj56wna SnVg7pSCSmYLCvfQJjXZUf XDP7MMS3IEbkkjCcKQPzKM hrtr22DOP1l4fujBTaVAes CxbomBUhliC9BNpFUDSYSL tSVbOoVO0bIVsMK4DFHDuI FnidEGv4IOtzoJU1g3wrbS Phq0f2MDucONO5bRrbf6ng xHZrGUdxEmvjyDKscyE1AZ cKWRLTJRfPQzHkXD4kSCuQ E7MZArP8WtX7HhZ1K2nddX bwQmjbxfVutWHjQjBlmO8l oQmztA8aVvZxVDkwLzYhQP Z6WCIiDfNDfL2qxT77XOUr nCCjJQQ0VH7paAetZXSpE1 AqO9YymbI7WCGebgo1QNLQ CMKXIFpCJW7QGHNJZENAEA 5KFBuVRbSmMZZ4XAixDYJ3 DfZtVeU8YjC1Lv3eSXXTNC SWLIpDUW1MSOYTAFHSMZ2Y VrJfU2nVOTDRUwXnVZBWBB XTJNNpGiRXIC9bVvv0rKpu r4nGNMBQAKNMB94LANDRWT ZTR8UTCVXMNNPXROcUHESI Th6DZALVTKAAUC3KKVmOHz XiBPhdsGMlGFuzKQF9QIq6 WoQpoGAsj8urGO6bMLenCb F6KeV9HiaksOFmAyJalRIH MNBRFNqWUPALFw8CSOUTTG RBIW5VKyZlP7QPBN0GXs0Z HSTTAHRPAK2AJMoQBaAuF7 IFXI4JZe0ARKVMCMTBWB5N JhMmZCDOT7OVVxYVR9etMX HSUUGFKPLhTtEESQ0zZCQS RW6LYMAHOAGPV11UJQFBXW LBG7WJKK9= Immediate Assessment Borderline (test code = 9837) cellularity, further review needed, additional tissue recommended Major Classification Indeterminate A (test code = 9839) Diagnosis (test code = v9ltvLXcAOAsbNJ0ETZbFP 34) Jkn3znb6FrdMNrzIBaLFjs xQCrxdWjet30cFS0yT00YM 0fDCIzNeC6VWTofbQ3Wwh9 MVGnWXDelETxH296n0zyw2 ujgoVzmRK6SZXtWSSeR4Wq PO9mMBRwzUWeS25qcSBnSW A9HNYkIRWxlJJpUCMlVFB3 YCRobASzY6snLJYoUZ4zuq nwAMfzGCqkJROtpNA0ROOl mMCtM4LvSXWtFVkoTZNefj y8LwNfOs2qyKZskVjtOMzg YXJkXHBsYWluXGZzMjBcY2 FjPNZsDSYhDwWdhKboi0Fq CTWpSBS8NV6xA4qqMUKwgi UgbmVlZGxlIGFzcGlyYXRp z025MEWqkrb5QTZadOAaLA xpNzIwXGxpbjcyMFxjZjAg UmFyZSBhdHlwaWNhbCBkZW dlbmVyYXRlZCBjZWxscyBp jsAgLAHyC5ajxt23pmWgi4 MuflGfkx9ihSXpMB4yZRGe dXNoZWQgbHltcGhvaWQgdG mry6JuHElaBBMtZ09zpBJp dClccGFyfQ== Comment (test code = s6kclUGsBSJhdPI4ZCPgRI 9835) Dgj1upw6BeoVPzyVKeMHuu xLXoucNiqi24pVY1vQ15TR 5xGEUpJdV9RCYouvC2Ztc7 QVOcQQXttTYnX634f5zod8 vlxyMprVI2aCoyARJyhqzc CuH6DJzoKVEigwiyXGx3QS gcZDIemUQ9ECUkoYAnW5Ep JCEoZM8qlid6PBY5HYexVZ QbPcO6IVSeoWGjOLUyfIci SDnwe121UTS0XoDaSQOodr RzwNhwsQ7sGbBmCDTXaDNx gVN3A7p3mXDzKkD5zZFpzB GgyDdrn5GlYVHwOOKjy02i QRKedHfwkMPjp5LjbcB7bX 5cESCwYMQhbTLqYWBrhL1p BTDfOGUasvo6ePTtDMBhCA cbc4Tqbh2yUUwyTQFrSONs BIM1kMgtYNXqcYqaahZyef Ncd10ibWPeLM75mBhoZYLr yJgpFEZiS23vMHRyPBPxaN AnMuefeBT2QZrSWuVvTdP5 BoDlSZQleiTpjRC7oGBcVJ G4VFa4QDDvm97jSHFybu4= Retained/Biomarker m9ralXSxPDQkmFS9MONzJI Testing (test code = Wne4ugb5LrnMMgtWIqFSjc 9887) pBTkdnEmvw19sGR7kC10ZI 6iWOZoGiA3RHRyxcT5Nyj2 DYOyAKIptNVsM182m5ptx2 jsteObyJF3vZxwLOZfjibk WmE1KAboHQDdhjhhAIv2YB atSFQwpRA8LCLvkROlU4Eq NJDqPR3rfcm8ILM3YAdxKN FaCqX6SYLupRGxHUHefMjj NMyki481KWP5FoOqJZDzzq WhiNyxkG9qXfMyWEROMhlq KLDqN2bfVIK3 Informational Points s3acbXLxIDKvkSYkXhEgCW (test code = 9836) VySGQsg1ptFKHfsDNxTmYr MzNcZnRuYmpcdWMxXGRlZm Pmh8hep747sNQdf4wpAUQc CxR7uZZfGRPzhTXgD907NR QcSDjjh9xgf8DuGNOsrJMv k6E0TMDPEUrrGQHSILu7e2 jfEkGzVgR1mOAbOWspE4nz obXbtMBwKPUfFBc9fK51BV NkvM2avFVxLFfrzbEkAtP1 NQhzQYTgUlH8NYOawVKoNK ZlU1cwEZXyNSddGELmQLfh oIJvQSF4eOgrk0J0sGNsdF TheTkpEgEjFhYzInJBy0Tn MCh4bVkuC3AfGZKrFbK4cZ QgUGFyYWdyYXBoIEZvbnQ7 sV65SCafmaC2yLUgj2Bow4 2al415bJ3fhVVjKZD0DNQr HIXwyTKiHTVyJNT4QQTkdI BxP0gxIFIgYL2zzzrnMZjh HUbuBRWzoNE4XILayOAwU1 ByKUNoMKowBMOqxxa8QyIe Uq7lfYPhbUrjFSmww6nkx6 rqqEYnRii1SMKoEnJyOevs FDvwh4Shr3ohZJLxsb0vIO O4lCHbaPkyh9H9pUFgWHVm sHCkojAwNQGeWjB0HSveTF 9xhr61BKXoOTE4ts4nmNUk tZmzqcGbuGUtENrrN3TpQG Leb718VMIqN0HcJZKnv9D3 pqArZtXhTPJbdIS5gxG9JQ RbNJn0sGLpkeW1noVhfUUe Z2ltwQ0dCMYzMA2sruabs0 fgJVmoTAkpMYTthAH2fsQ8 PHNiiOJnR7KgyS6hQPGjNJ rsQVMjcgd2ReUePv4mqQOa eTcyMFxzYmtwYWdlXHBnbm NvbnRccGduZGVjXHBsYWlu XHBsYWluXGYwXGZzMjRccW cvrHlboZ4sOmRfVnWcZBcm PH7mBIKkR5rpzMDrYJDtIX SkP7deOvDrrK1cmDwoARym dmA9ONbvU54xBTZ0VQM2rj DiWZJdwrDwHQMaWRVsPY8g cUTnZXXbLQLhXD4eZCX2HJ hhuJWbLHMvSOCqXGLqv2Iz HY2yEDGsjHNmXKB3ZUHzr0 DpZ3DmSQI9QWKliQ9iBUYn eSBVVCBNRCBBbmRlcnNvbi BAORZir8hxC5yzAI8sZFei If4bBCTzehxnLSSpvICkxr KhCHIvGWDzVZFpx8DeNHnq ewSold50OJIoYX8cd4QaK9 fvhQXzsTf6NZCwCOViIVOg i1JuYZPjzk85ALCxFbgbcV lpSORyKl6aVw4qYEAdsnCt XHF4HnJECF7ntudbtITemW obsd1wQZXsDLilPZAfJKWv MjJcbGFuZzEwMzNcaGljaF vsJfutKkXdXDIrFOruK7xb ZjJcZnMyMlxwYXJ9 Lab Interpretation Abnormal (test code = 54962-1) MD Mora DRUG SCREEN, [id number] 19:07:00 Test Item Value Reference Range Interpretation [...] situations. Chain of custody not maintained. Some evig-sha-fwbwajb medications, as well as adulterants, may cause inaccurate results. Clinical correlation should be applied. A more comprehensivedrug screen or confirmation of a detected drug may be performed upon request.Hotbed Lever Operator ID - [id number] ID - [id number] ID - [id number] ID - [id number] ID - [id number] ID - [id number] ID - [id number] ID - [id number] URINALYSIS W/ [id number] 16:12:00 Test Item Value Reference Range Interpretation [...] code = 1663) SOURCE(BEAKER) (test code = 0990) TROPONIN [id number] 15:12:00 Test Item Value Reference Range Interpretation [...] failure, acidosis, acute neurological disease, and persistent tachyarrhythmia.Hotbed Lever Operator ID - [id number] [id number] 15:10:00 Test Item Value Reference Range Interpretation Comments ACETAMINOPHEN LEVEL (BEAKER) (test < ug/mL 10.0-30.0 L code = 344) Hotbed Lever Operator ID - [id number] ID - [id number] ID - [id number] ID - [id number] YVZIF0399-40-80 15:10:00 Test Item Value Reference Range Interpretation Comments SALICYLATE LEVEL (BEAKER) (test 0.9 mg/dL 20.0-30.0 L code = 764) Hotbed Lever Operator ID - [id number] 15:06:00 Test Item Value Reference Range Interpretation Comments ETHANOL (BEAKER) < mg/dL See_Comment [Automated message] The (test code = 400) system [employer] generated this result tra nsmitted reference range : <=10. The reference r louis was not used to int erpret this result as normal/abnormal . Hotbed Lever Operator ID - [id number] 15:05:00 Test Item Value Reference Range Interpretation Comments MAGNESIUM (BEAKER) (test code = 2.3 mg/dL 1.5-3.0 627) Hotbed Lever Operator ID - [id number] ID - [id number] ID - [id number] ID - [id number] METABOLIC [id number] 15:05:00 Test Item Value Reference Range Interpretation [...] S NOT APPLICABLE FOR DIALYSIS PATIEN TS. Hotbed Lever Operator ID - [id number] ID - [id number] ID - [id number] ID - [id number] ID - [id number] ID - [id number] ID - [id number] ID - [id number] ID - [id number] ID - [id number] ID - [id number] ID - [id number] ID - [id number] ID - [id number] ID - [id number] ID - [id number] YCJXREKEZO1665-50-43 15:02:00 Test Item Value Reference Range Interpretation Comments PHOSPHORUS (BEAKER) (test code = 4.0 mg/dL 2.5-4.5 604) Hotbed Lever Operator ID - [id number] W/PLT COUNT & AUTO [id number] 14:46:00 Test Item Value Reference Range Interpretation [...] Not Detected Not Detected (test code = 90660-8) DARCI (test code = DARCI) ID NOW COVID-19 Assay is an isothermal nucleic acid amplification test intended for the qualitative detection of nucleic acid from SARS-CoV-2 viral RNA in nasopharyngeal (MACHINERY CLEANER) specimens. It is used under Emergency Use [...] indicated. Lab Interpretation Normal (test code = 45968-6) [facility]2017-04-06 09:31:00 Test Item Value Reference Range Interpretation Comments eGFR (test code = eGFR) 69 [facility]2017-04-06 09:31:00 Test Item Value Reference Range Interpretation Comments Glucose Lvl (test code = Glucose Lvl) 104 70-99 [facility]2017-04-06 09:31:00 Test Item Value Reference Range Interpretation Comments Potassium Lvl (test code = Potassium 4.0 3.5-5.1 Lvl) [facility]2017-04-06 09:31:00 Test Item Value Reference Range Interpretation Comments Sodium Lvl (test code = Sodium Lvl) 140 135-145 [facility]2017-04-06 09:31:00 Test Item Value Reference Range Interpretation Comments Creatinine Lvl (test code = Creatinine 1.10 0.50-1.40 Lvl) [facility]2017-04-06 09:31:00 Test Item Value Reference Range Interpretation Comments BUN (test code = BUN) 21 7-22 [facility]2017-04-06 09:31:00 Test Item Value Reference Range Interpretation Comments AGAP (test code = AGAP) 13.0 10.0-20.0 [facility]2017-04-06 09:31:00 Test Item Value Reference Range Interpretation Comments CO2 (test code = CO2) 27 24-32 [facility]2017-04-06 09:31:00 Test Item Value Reference Range Interpretation Comments Calcium Lvl (test code = Calcium Lvl) 8.2 8.5-10.5 [facility]2017-04-06 09:31:00 Test Item Value Reference Range Interpretation Comments Chloride Lvl (test code = Chloride Lvl) 104 95-109 [facility]2017-04-05 10:06:00 Test Item Value Reference Range Interpretation Comments Magnesium Lvl (test code = Magnesium 2.6 1.8-2.4 Lvl) [facility]hofXGFSDOQPDJDN5730[facility]-40 10:06:00 Test Item Value Reference Range Interpretation Comments AGAP (test code = AGAP) 15.4 10.0-20.0 [facility]UyapgrhSROWBVJYDFDM1924-11-26 10:06:00 Test Item Value Reference Range Interpretation Comments eGFR (test code = eGFR) 69 [facility] HospitalKfgaxteUREUOWXVVBMP3564-71-57 10:06:00 Test Item Value Reference Range Interpretation Comments Glucose Lvl (test code = Glucose Lvl) 110 70-99 [facility] HospitalNnywzinUAFYGMZAKUQG1276-44-03 10:06:00 Test Item Value Reference Range Interpretation Comments BUN (test code = BUN) 26 7-22 [facility] HospitalIsnzfndKPWTRRFLLAVF2681-60-59 10:06:00 Test Item Value Reference Range Interpretation Comments Chloride Lvl (test code = Chloride Lvl) 105 95-109 [facility] HospitalAehhqcvWKEDLOWNDYUT3919-33-23 10:06:00 Test Item Value Reference Range Interpretation Comments Creatinine Lvl (test code = Creatinine 1.10 0.50-1.40 Lvl) [facility] HospitalDngraocOUVMEUGHWHLX9835-16-64 10:06:00 Test Item Value Reference Range Interpretation Comments Sodium Lvl (test code = Sodium Lvl) 137 135-145 [facility] HospitalOivpwtvBVYNMCNKGUGM1829-02-16 10:06:00 Test Item Value Reference Range Interpretation Comments Potassium Lvl (test code = Potassium 4.4 3.5-5.1 Lvl) [facility] HospitalCbahntzEPOKBZWIHEAH9494-94-74 10:06:00 Test Item Value Reference Range Interpretation Comments CO2 (test code = CO2) 21 24-32 [facility] HospitalQuyskgvJYZFYGHKUHWJ6994-85-89 10:06:00 Test Item Value Reference Range Interpretation Comments Calcium Lvl (test code = Calcium Lvl) 8.1 8.5-10.[address] [facility] HospitalCiurmrcOIJRWRFRVO9629-00-54 10:06:00 Test Item Value Reference Range Interpretation Comments Basophils (test code = 0.3 See_Comment [Aut omated message] The Basophils) system which ge nerated this result tra nsmitted reference range : <=1.0. The reference r louis was not used to int erpret this result as normal/abnormal . [facility] HospitalPhroskuDRRSZRABQX4272-19-00 10:06:00 Test Item Value Reference Range Interpretation Comments Segs-Bands # (test code = Segs-Bands #) 9.5 1.5-8.[address] [facility] HospitalPriasvaNCVJESGGHR1185-81-58 10:06:00 Test Item Value Reference Range Interpretation Comments Lymphocytes # (test code = Lymphocytes 1.2 1.0-5.5 #) [facility] HospitalUhboabzYIKKFOCHZX9236-73-12 10:06:00 Test Item Value Reference Range Interpretation Comments Monocytes # (test code 1.4 See_Comment [Aut omated message] The = Monocytes #) system which generated this result tra nsmitted reference range : <=0.8. The reference r louis was not used to int erpret this result as normal/abnormal . [facility] HospitalDvosmbdUYCKFFQHCW6853-83-84 10:06:00 Test Item Value Reference Range Interpretation Comments Basophils # (test code 0.0 See_Comment [Aut omated message] The = Basophils #) system which generated this result tra nsmitted reference range : <=0.2. The reference r louis was not used to int erpret this result as normal/abnormal . [facility] HospitalGgvwlfsQRPKFFVRND2766-17-99 10:06:00 Test Item Value Reference Range Interpretation Comments Eosinophils # (test code 0.2 See_Comment [A utomated message] The = Eosinophils #) system whic h generated this result tra nsmitted reference range : <=0.5. The reference r louis was not used to int erpret this result as normal/abnormal . [facility] HospitalZonedqkPLCYVRIIYF0660-47-55 10:06:00 Test Item Value Reference Range Interpretation Comments Polychrom (test code = Moderate *ABN*(06/29/16 Polychrom) 5:06 AM) [facility] HospitalFiblcxkIQKLRZNZCB0865-17-56 10:06:00 Test Item Value Reference Range Interpretation Comments Plt Morph (test code = Normal (06/29/16 5:06 AM) Plt Morph) [facility] HospitalDpgptkeUJMELVLQEX2484-03-86 10:06:00 Test Item Value Reference Range Interpretation Comments Lymphocytes (test code = Lymphocytes) 9.7 20.0-40.[address] [facility] HospitalNijndvdSETXTCINDG8426-49-47 10:06:00 Test Item Value Reference Range Interpretation Comments Segs (test code = Segs) 77.0 45.0-75.[address] [facility] HospitalTeskauqYFHTTSOOVN7600-84-81 10:06:00 Test Item Value Reference Range Interpretation Comments Eosinophils (test code = 1.6 See_Comment [A utomated message] The Eosinophils) system which ge nerated this result tra nsmitted reference range : <=4.0. The reference r louis was not used to int erpret this result as normal/abnormal . [facility] HospitalQpihdbqSITUOYABIY3300-28-58 10:06:00 Test Item Value Reference Range Interpretation Comments Monocytes (test code = Monocytes) 11.4 2.0-12.[address] [facility] HospitalOnjhcwrEDXUHOBCWA1914-50-40 10:06:00 Test Item Value Reference Range Interpretation Comments MCH (test code = MCH) 28.6 pg 27.0-31.[address] [facility] [facility] HospitalYyfvyllGKMUXSWJBE1543-18-25 10:06:00 Test Item Value Reference Range Interpretation Comments Platelet (test code = Platelet) 163 133-[address] [facility] HospitalUdxqimoNEHZIERMKR8403-13-74 10:06:00 Test Item Value Reference Range Interpretation Comments RDW (test code = RDW) 14.2 11.5-14.[address] [facility] HospitalOyxdbrhKBWKGQIVBZ9409-57-17 10:06:00 Test Item Value Reference Range Interpretation Comments MCHC (test code = MCHC) 33.9 32.0-36.[address] [facility] HospitalFottiidXIFFBPBXOR4923-64-89 10:06:00 Test Item Value Reference Range Interpretation Comments MPV (test code = MPV) 8.3 7.4-10.[address] [facility] HospitalLnqhccfHUJUUXMFYL1826-37-87 10:06:00 Test Item Value Reference Range Interpretation Comments RBC (test code = RBC) 3.11 4.70-6.[address] [facility] HospitalKebohkeLTXGQNHZSA6245-32-49 10:06:00 Test Item Value Reference Range Interpretation Comments WBC (test code = WBC) 12.3 3.7-10.[address] [facility] HospitalTmunhfwYSWGJQOBQQ4894-36-65 10:06:00 Test Item Value Reference Range Interpretation Comments MCV (test code = MCV) 84.3 80.0-94.[address] [facility] HospitalOuhhgdqKNXERFCAPQ2137-95-00 10:06:00 Test Item Value Reference Range Interpretation Comments Hct (test code = Hct) 26.2 42.0-54.[address] [facility] H[id number] 10:06:00 Test Item Value Reference Range Interpretation Comments Hgb (test code = Hgb) 8.9 14.0-18.0 [facility]2017-04-04 10:42:00 Test Item Value Reference Range Interpretation Comments eGFR (test code = eGFR) 56 [facility]2017-04-04 10:42:00 Test Item Value Reference Range Interpretation Comments Calcium Lvl (test code = Calcium Lvl) 8.3 8.5-10.5 [facility]2017-04-04 10:42:00 Test Item Value Reference Range Interpretation Comments Potassium Lvl (test code = Potassium 4.5 3.5-5.1 Lvl) [facility]2017-04-04 10:42:00 Test Item Value Reference Range Interpretation Comments CO2 (test code = CO2) 24 24-32 [facility]2017-04-04 10:42:00 Test Item Value Reference Range Interpretation Comments Chloride Lvl (test code = Chloride Lvl) 107 95-109 [facility]2017-04-04 10:42:00 Test Item Value Reference Range Interpretation Comments Glucose Lvl (test code = Glucose Lvl) 118 70-99 [facility]2017-04-04 10:42:00 Test Item Value Reference Range Interpretation Comments BUN (test code = BUN) 29 7-22 [facility]2017-04-04 10:42:00 Test Item Value Reference Range Interpretation Comments Sodium Lvl (test code = Sodium Lvl) 139 135-145 [facility]2017-04-04 10:42:00 Test Item Value Reference Range Interpretation Comments Creatinine Lvl (test code = Creatinine 1.30 0.50-1.40 Lvl) [facility]2017-04-04 10:42:00 Test Item Value Reference Range Interpretation Comments AGAP (test code = AGAP) 12.5 10.0-20.0 [facility]2017-04-04 10:42:00 Test Item Value Reference Range Interpretation Comments Magnesium Lvl (test code = Magnesium 2.7 1.8-2.4 Lvl) [facility] H[id number] 10:42:00 Test Item Value Reference Range Interpretation Comments Hgb (test code = Hgb) 9.0 14.0-18.[address] [facility] HospitalDaqxknwRPIGOIBXQI7931-71-99 10:42:00 Test Item Value Reference Range Interpretation Comments Hct (test code = Hct) 27.7 42.0-54.[address] [facility] HospitalBhyonhtHFDQFQSKYN2198-05-57 10:42:00 Test Item Value Reference Range Interpretation Comments MCV (test code = MCV) 87.2 80.0-94.[address] [facility] HospitalWgjhlvpQEGQCYFHIL9637-46-52 10:42:00 Test Item Value Reference Range Interpretation Comments MCH (test code = MCH) 28.5 pg 27.0-31.[address] [facility] HospitalYmuccbhRSHARWTOKT4385-23-91 10:42:00 Test Item Value Reference Range Interpretation Comments MCHC (test code = MCHC) 32.6 32.0-36.[address] [facility] HospitalNdiqeybHLNWMEXHMD5180-09-75 10:42:00 Test Item Value Reference Range Interpretation Comments WBC (test code = WBC) 11.9 3.7-10.[address] [facility] HospitalRmfqkcnZXGECNSBXT1329-68-72 10:42:00 Test Item Value Reference Range Interpretation Comments RBC (test code = RBC) 3.17 4.70-6.[address] [facility] HospitalBtyebkqVNCPJYVWGZ8875-51-93 10:42:00 Test Item Value Reference Range Interpretation Comments RDW (test code = RDW) 14.6 11.5-14.[address] [facility] HospitalXwuloaeIMDEVSQUWN1412-95-12 10:42:00 Test Item Value Reference Range Interpretation Comments Platelet (test code = Platelet) 136 133-[address] [facility] HospitalRwqqwktRBMZUCISXO0738-03-65 10:42:00 Test Item Value Reference Range Interpretation Comments MPV (test code = MPV) 8.6 7.4-10.[address] [facility] HospitalNevzrhvRXFDKJEGOH9218-99-67 10:42:00 Test Item Value Reference Range Interpretation Comments Lymphocytes # (test code = Lymphocytes 1.5 1.0-5.5 #) [facility] HospitalBufsuaiJGIBQHNOLT9767-04-30 10:42:00 Test Item Value Reference Range Interpretation Comments Monocytes # (test code 1.4 See_Comment [Aut omated message] The = Monocytes #) system which generated this result tra nsmitted reference range : <=0.8. The reference r lou[place] was not used to int erpret this result as normal/abnormal . [facility] HospitalXoipmfdXUQVKBSRJF6355-12-73 10:42:00 Test Item Value Reference Range Interpretation Comments Eosinophils # (test code 0.1 See_Comment [A utomated message] The = Eosinophils #) system wh h generated this result tra nsmitted reference range : <=0.5. The reference r louis was not used to int erpret this result as normal/abnormal . [facility] HospitalVpgvngzTWSLSZYPAW4204-91-51 10:42:00 Test Item Value Reference Range Interpretation Comments Lymphocytes (test code = Lymphocytes) 12.3 20.0-40.[address] [facility] HospitalFsxlstgTVUMNALKHV0015-34-09 10:42:00 Test Item Value Reference Range Interpretation Comments Monocytes (test code = Monocytes) 11.6 2.0-12.[address] [facility] HospitalDzrmmthYEYHBMQYFR7502-82-98 10:42:00 Test Item Value Reference Range Interpretation Comments Eosinophils (test code = 1.1 See_Comment [A utomated message] The Eosinophils) system which ge nerated this result tra nsmitted reference range : <=4.0. The reference r louis was not used to int erpret this result as normal/abnormal . [facility] HospitalNnwqcyyCIITULUGVJ2519-18-66 10:42:00 Test Item Value Reference Range Interpretation Comments Basophils (test code = 0.3 See_Comment [Aut omated message] The Basophils) system which ge nerated this result tra nsmitted reference range : <=1.0. The reference r louis was not used to int erpret this result as normal/abnormal . [facility] HospitalAixcuwbDSTOOVOUDL0357-46-34 10:42:00 Test Item Value Reference Range Interpretation Comments Segs-Bands # (test code = Segs-Bands #) 8.9 1.5-8.[address] [facility] HospitalMpcvhkdJFBQZMLMPB0780-50-26 10:42:00 Test Item Value Reference Range Interpretation Comments Segs (test code = Segs) 74.7 45.0-75.0 [facility]2017-04-03 09:50:00 Test Item Value Reference Range Interpretation Comments Magnesium Lvl (test code = Magnesium 2.4 1.8-2.4 Lvl) [facility] HospitalLswqwijVQFIYGSUWI6565-89-77 09:50:00 Test Item Value Reference Range Interpretation Comments WBC (test code = WBC) 18.6 3.7-10.[address] [facility] HospitalNkspklhRLIOALYBAE2611-40-61 09:50:00 Test Item Value Reference Range Interpretation Comments RDW (test code = RDW) 14.7 11.5-14.[address] [facility] HospitalGwiktwuKNTPCMBJHK3630-98-59 09:50:00 Test Item Value Reference Range Interpretation Comments MCHC (test code = MCHC) 33.1 32.0-36.[address] [facility] HospitalExnrupcORWNGUVUFR4101-45-92 09:50:00 Test Item Value Reference Range Interpretation Comments Hct (test code = Hct) 29.5 42.0-54.[address] [facility] HospitalInnoipgUBTILPQIMC6007-81-96 09:50:00 Test Item Value Reference Range Interpretation Comments MCH (test code = MCH) 28.1 pg 27.0-31.[address] [facility] HospitalGunbomqIDPCSMUGYA0281-73-95 09:50:00 Test Item Value Reference Range Interpretation Comments MCV (test code = MCV) 84.7 80.0-94.[address] [facility] HospitalNmlrnbbLZNFEQCNQN8364-43-03 09:50:00 Test Item Value Reference Range Interpretation Comments MPV (test code = MPV) 9.7 7.4-10.[address] [facility] HospitalOlwjzqoCJZLHQDVSI5585-95-46 09:50:00 Test Item Value Reference Range Interpretation Comments Platelet (test code = Platelet) 118 133-[address] [facility] HospitalXjhajobQVYFEZQEQH8211-18-80 09:50:00 Test Item Value Reference Range Interpretation Comments Hgb (test code = Hgb) 9.8 14.0-18.[address] [facility] HospitalGykmnqyXTREITDSEH9423-70-75 09:50:00 Test Item Value Reference Range Interpretation Comments RBC (test code = RBC) 3.48 4.70-6.[address] [facility] HospitalXclkodbPARKCHGQHL4874-45-55 09:50:00 Test Item Value Reference Range Interpretation Comments Lymphocytes # (test code = Lymphocytes 2.0 1.0-5.5 #) [facility] HospitalKtmigdiXYVVAHCYMF0883-88-20 09:50:00 Test Item Value Reference Range Interpretation Comments Segs (test code = Segs) 76.1 45.0-75.[address] [facility] HospitalYamggmgPXLDWFTAHB7396-11-13 09:50:00 Test Item Value Reference Range Interpretation Comments Eosinophils (test code = 0.1 See_Comment [A utomated message] The Eosinophils) system which ge nerated this result tra nsmitted reference range : <=4.0. The reference r louis was not used to int erpret this result as normal/abnormal . [facility] HospitalAevlfniJOJHEMPXCA5356-81-10 09:50:00 Test Item Value Reference Range Interpretation Comments Monocytes (test code = Monocytes) 12.7 2.0-12.[address] [facility] HospitalMopynebAUEKDVXKAV1415-23-01 09:50:00 Test Item Value Reference Range Interpretation Comments Segs-Bands # (test code = Segs-Bands #) 14.2 1.5-8.[address] [facility] HospitalJblkttkGTXTXNIAWR8337-55-97 09:50:00 Test Item Value Reference Range Interpretation Comments Basophils (test code = 0.5 See_Comment [Aut omated message] The Basophils) system which ge nerated this result tra nsmitted reference range : <=1.0. The reference r louis was not used to int erpret this result as normal/abnormal . [facility] HospitalRormkzeBRTSUGLBMJ1662-01-58 09:50:00 Test Item Value Reference Range Interpretation Comments Lymphocytes (test code = Lymphocytes) 10.6 20.0-40.[address] [facility] HospitalTrcvpclTFVZQPOKNK6737-24-64 09:50:00 Test Item Value Reference Range Interpretation Comments Basophils # (test code 0.1 See_Comment [Aut omated message] The = Basophils #) system which generated this result tra nsmitted reference range : <=0.2. The reference r louis was not used to int erpret this result as normal/abnormal . [facility] HospitalBnyyevmERLQBBYWAB7712-06-01 09:50:00 Test Item Value Reference Range Interpretation Comments Monocytes # (test code 2.4 See_Comment [Aut omated message] The = Monocytes #) system which generated this result tra nsmitted reference range : <=0.8. The reference r louis was not used to int erpret this result as normal/abnormal . [facility] [id number] 08:42:00 Test Item Value Reference Range Interpretation Comments Phosphorus (test code = Phosphorus) 2.0 2.5-4.5 [facility] CenterAspbomgBVPRCWKIMX9829-84-78 08:42:00 Test Item Value Reference Range Interpretation Comments Eosinophils # (test code 0.0 See_Comment [A utomated message] The = Eosinophils #) system whic h generated this result tra nsmitted reference range : <=0.5. The reference r louis was not used to int erpret this result as normal/abnormal . [facility] CenterCbcnccqKBNYRIRSEI8429-76-95 08:42:00 Test Item Value Reference Range Interpretation Comments Basophils # (test code 0.0 See_Comment [Aut omated message] The = Basophils #) system which generated this result tra nsmitted reference range : <=0.2. The reference r louis was not used to int erpret this result as normal/abnormal . [facility] CenterPARATHYROID [id number] 08:42:00 Test Item Value Reference Range Interpretation Comments Ca Ion WB (test code = Ca Ion WB) 1.11 1.05-1.25 [facility] CenterPARATHYROID [id number] 08:42:00 Test Item Value Reference Range Interpretation Comments Ca Norm WB (test code = Ca Norm WB) 1.11 1.05-1.25 [facility] [id number] 08:42:00 Test Item Value Reference Range Interpretation Comments Hgb A1C (test code = Hgb A1C) 6.4 [facility] [id number] 07:28:00 Test Item Value Reference Range Interpretation Comments Phosphorus (test code = Phosphorus) 1.6 2.5-4.5 [facility] CenterZitvbraIPUQSIZGWS5455-91-54 07:28:00 Test Item Value Reference Range Interpretation Comments RBC Morph (test code = Normal (06/25/16 2:28 AM) RBC Morph) [facility] HospitalVffghknNNJXJDXJGK3429-09-53 07:28:00 Test Item Value Reference Range Interpretation Comments Plt Morph (test code = Normal (06/25/16 2:28 AM) Plt Morph) [facility] [id number] 07:28:00 Test Item Value Reference Range Interpretation Comments Ca Norm WB (test code = Ca Norm WB) 1.06 1.05-1.25 [facility]ATHYROID [id number] 07:28:00 Test Item Value Reference Range Interpretation Comments Ca Ion WB (test code = Ca Ion WB) 1.09 1.05-1.[address] [facility] HospitalScbnivjVBTYKYDUDV8746-48-57 23:42:00 Test Item Value Reference Range Interpretation Comments POC Hematocrit (test code = POC 34.0 42.0-54.0 Hematocrit) [facility] HospitalHaxqwvxRVJJMVGWEU8453-64-86 23:42:00 Test Item Value Reference Range Interpretation Comments POC Hemoglobin (test code = POC 11.6 14.0-18.0 Hemoglobin) [facility] HospitalFqbxyfuDUJZGFRTSW1613-41-89 23:42:00 Test Item Value Reference Range Interpretation Comments POC Ion Ca (test code = POC Ion Ca) 1.09 1.05-1.[address] [facility] HospitalMndpaqeHQNYMNTEVW3523-23-54 23:42:00 Test Item Value Reference Range Interpretation Comments POC Potassium (test code = POC 4.4 3.5-5.1 Potassium) [facility] HospitalKwmwzlgTJBYHZVPUA7449-86-19 23:42:00 Test Item Value Reference Range Interpretation Comments POC Sodium (test code = POC Sodium) 143 135-145 [facility]2017-03-31 23:11:00 Test Item Value Reference Range Interpretation Comments A/G Ratio (test code = A/G Ratio) 1.4 0.7-1.6 [facility] CenterCHEM [id number] 23:11:00 Test Item Value Reference Range Interpretation Comments Globulin (test code = Globulin) 2.1 2.7-4.2 [facility]2017-03-31 23:11:00 Test Item Value Reference Range Interpretation Comments Bili Indirect (test 0.4 See_Comment [Automa jigar message] The code = Bili Indirect) system which generated this result tra nsmitted reference range : <=1.0. The reference r louis was not used to int erpret this result as normal/abnormal . [facility]2017-03-31 23:11:00 Test Item Value Reference Range Interpretation Comments Bili Direct (test code 0.2 See_Comment [Aut omated message] The = Bili Direct) system which generated this result tra nsmitted reference range : <=0.3. The reference r louis was not used to int erpret this result as sonido l/abnormal. [facility]2017-03-31 23:11:00 Test Item Value Reference Range Interpretation Comments Bili Total (test code = Bili Total) 0.6 0.2-1.3 [facility]2017-03-31 23:11:00 Test Item Value Reference Range Interpretation Comments Alk Phos (test code = Alk Phos) 38 39-136 [facility]2017-03-31 23:11:00 Test Item Value Reference Range Interpretation Comments AST (test code = AST) 42 See_Comment [Auto mated message] The system which ge nerated this result transmit jigar reference range : <=37. The reference range was not used to interpr et this result as sonido l/abnormal. [facility]2017-03-31 23:11:00 Test Item Value Reference Range Interpretation Comments ALT (test code = ALT) 51 See_Comment [Auto mated message] The system which ge nerated this result transmit jigar reference range : <=65. The reference range was not used to interpr et this result as sonido l/abnormal. [facility]2017-03-31 23:11:00 Test Item Value Reference Range Interpretation Comments Albumin Lvl (test code = Albumin Lvl) 2.9 3.5-5.0 [facility]2017-03-31 23:11:00 Test Item Value Reference Range Interpretation Comments Total Protein (test code = Total 5.0 6.4-8.4 Protein) [facility]2017-03-31 23:11:00 Test Item Value Reference Range Interpretation Comments Phosphorus (test code = Phosphorus) 2.3 2.5-4.[address] [facility] HospitalSwsxxkkIVDOKESVBA5638-81-23 23:11:00 Test Item Value Reference Range Interpretation Comments FSP (test code = FSP) <5 ug/ml [facility] HospitalZnxmdojWWKLJSXQFG5173-01-88 23:11:00 Test Item Value Reference Range Interpretation Comments Fibrinogen Lvl (test code = Fibrinogen 206 230-510 Lvl) [facility] HospitalXayhjdqNRGOZLJLEU5941-26-59 23:11:00 Test Item Value Reference Range Interpretation Comments PTT (test code = PTT) 34.9 s 22.9-35.[address] [facility] HospitalVaamgtkWWJGZGZOYW5039-29-19 23:11:00 Test Item Value Reference Range Interpretation Comments INR (test code = INR) 1.27 0.85-1.[address] [facility] HospitalPaejsrnEPQDXCHNGA7200-74-09 23:11:00 Test Item Value Reference Range Interpretation Comments PT (test code = PT) 16.2 s 12.0-14.7 [facility] [id number] 23:11:00 Test Item Value Reference Range Interpretation Comments Ca Norm WB (test code = Ca Norm WB) 1.09 1.05-1.25 [facility]2017-03-31 23:11:00 Test Item Value Reference Range Interpretation Comments Ca Ion WB (test code = Ca Ion WB) 1.10 1.05-1.[address] [facility] HospitalTakdfpuFWGRZYZLAR6468-77-84 22:13:00 Test Item Value Reference Range Interpretation Comments Fibrinogen Lvl (test code = Fibrinogen 196 230-510 Lvl) [facility] HospitalNkfzdveWWXKPQLYXL0754-20-22 22:13:00 Test Item Value Reference Range Interpretation Comments PTT (test code = PTT) 32.8 s 22.9-35.[address] [facility] HospitalWtjesmvPBIGNISTSY6224-50-61 22:13:00 Test Item Value Reference Range Interpretation Comments PT (test code = PT) 16.6 s 12.0-14.[address] [facility] HospitalHnblefgOPGKGFZNWO9664-07-03 22:13:00 Test Item Value Reference Range Interpretation Comments INR (test code = INR) 1.32 0.85-1.17 [facility] [employer] [id number] 09:15:00 Test Item Value Reference Range Interpretation Comments Antibody Scrn (test Negative (06/24/16 4:15 code = Antibody Scrn) AM) [facility] [employer] [id number] 09:15:00 Test Item Value Reference Range Interpretation Comments ABO/Rh (test code = ABO/Rh) A POS [facility] [employer] [id number] 09:00:00 Test Item Value Reference Range Interpretation Comments Platelet product (test Product available code = Platelet (06/24/16 4:00 AM) product) [facility] [id number] 09:00:00 Test Item Value Reference Range Interpretation Comments FFP product (test code Product available = FFP product) (06/24/16 4:00 AM) [facility] [id number] 09:00:00 Test Item Value Reference Range Interpretation Comments Cryo product (test Product available code = Cryo product) (06/24/16 4:00 AM) [facility] [id number] 09:00:00 Test Item Value Reference Range Interpretation Comments RBC product (test code Product available = RBC product) (06/24/16 4:00 AM) [facility] HospitalKfjubzeXCDNQPHKKL5910-24-78 10:18:00 Test Item Value Reference Range Interpretation Comments INR (test code = INR) 1.05 0.85-1.[address] [facility] HospitalTckvpgrQAYESHTAXC7987-65-07 10:18:00 Test Item Value Reference Range Interpretation Comments PTT (test code = PTT) 37.0 s 22.9-35.[address] HospitalYrpegeqAOLESYSCQC3659-65-49 10:18:00 Test Item Value Reference Range Interpretation Comments PT (test code = PT) 13.9 s 12.0-14.7 [facility] [id number] 10:18:00 Test Item Value Reference Range Interpretation Comments ABO/Rh (test code = ABO/Rh) A POS [facility] [id number] 10:18:00 Test Item Value Reference Range Interpretation Comments Antibody Scrn (test Negative (06/20/16 5:18 code = Antibody Scrn) AM) [facility] HospitalIzmfwurTRYBCDJRNO2530-80-41 10:18:00 Test Item Value Reference Range Interpretation Comments Plt Morph (test code = Normal (06/20/16 5:18 Plt Morph) AM) [facility] HospitalPxfprxbSPRLYSIJIV5408-81-51 10:18:00 Test Item Value Reference Range Interpretation Comments RBC Morph (test code = Normal (06/20/16 5:18 RBC Morph) AM) [facility]MOLE[facility] [id number] 10:18:00 Test Item Value Reference Range Interpretation Comments HCV RNA Log10 (test code = HCV RNA 6.9 Log10) [facility] CenterMOLE[facility] [id number] 10:18:00 Test Item Value Reference Range Interpretation Comments HCV RNA VirLoad (test code = HCV RNA 4444369 VirLoad) [facility] [id number] 10:00:00 Test Item Value Reference Range Interpretation Comments FFP product (test code Product available = FFP product) (06/20/16 5:00 AM) [facility] [id number] 10:00:00 Test Item Value Reference Range Interpretation Comments Cryo product (test Product available code = Cryo product) (06/20/16 5:00 AM) [facility] [employer] BANK [id number] 10:00:00 Test Item Value Reference Range Interpretation Comments RBC product (test code Product available = RBC product) (06/20/16 5:00 AM) [facility] [id number] 10:00:00 Test Item Value Reference Range Interpretation Comments Platelet product (test Product available code = Platelet (06/20/16 5:00 AM) product) [facility] CenterBACT[facility] - [id number] 10:33:00 Test Item Value Reference Range Interpretation Comments MRSA by PCR (test Negative (06/18/16 5:33 code = MRSA by PCR) AM) [facility] [employer] [id number] 10:33:00 Test Item Value Reference Range Interpretation Comments B/C Ratio (test code = B/C Ratio) 18 09-18 [facility] [employer] [id number] 10:33:00 Test Item Value Reference Range Interpretation Comments Globulin (test code = Globulin) 3.9 2.7-4.2 [facility] [employer] [id number] 10:33:00 Test Item Value Reference Range Interpretation Comments A/G Ratio (test code = A/G Ratio) 0.8 0.7-1.6 [facility] [employer] [id number] 10:33:00 Test Item Value Reference Range Interpretation Comments ALT (test code = ALT) 67 See_Comment [Auto mated message] The system which ge nerated this result transmit jigar reference range : <=65. The reference range was not used to interpr et this result as sonido l/abnormal. [facility] [employer] [id number] 10:33:00 Test Item Value Reference Range Interpretation Comments AST (test code = AST) 74 See_Comment [Auto mated message] The system which ge nerated this result transmit jigar reference range : <=37. The reference range was not used to interpr et this result as sonido l/abnormal. [facility] [employer] [id number] 10:33:00 Test Item Value Reference Range Interpretation Comments Total Protein (test code = Total 7.1 6.4-8.4 Protein) [facility] [employer] [id number] 10:33:00 Test Item Value Reference Range Interpretation Comments Albumin Lvl (test code = Albumin Lvl) 3.2 3.5-5.0 [facility] [employer] [id number] 10:33:00 Test Item Value Reference Range Interpretation Comments Alk Phos (test code = Alk Phos) 58 39-136 [facility] [id number] 10:33:00 Test Item Value Reference Range Interpretation Comments Bili Total (test code = Bili Total) 0.4 0.2-1.3 [facility] CenterAzdehckUQEGRY1751-77-54 10:33:00 Test Item Value Reference Range Interpretation Comments CHD Risk (test code = CHD Risk) 4.04 4.00-7.30 [facility] CenterFxewzdaEYHAKA7541-12-79 10:33:00 Test Item Value Reference Range Interpretation Comments VLDL (test code = VLDL) 16 [facility] CenterFnrqkojUOBIMK8006-89-48 10:33:00 Test Item Value Reference Range Interpretation Comments LDL (Calculated) (test code = LDL 121 (Calculated)) [facility] CenterZxigkliLKKSAG3682-84-52 10:33:00 Test Item Value Reference Range Interpretation Comments HDL (test code = HDL) 45 [facility] CenterUdtbrnwTTNNBW4826-43-25 10:33:00 Test Item Value Reference Range Interpretation Comments Trig (test code = Trig) 82 [facility] CenterMrmdhhsWKKZNV1292-62-56 10:33:00 Test Item Value Reference Range Interpretation Comments Chol (test code = Chol) 182 [facility] [id number] 10:33:00 Test Item Value Reference Range Interpretation Comments Hgb A1C (test code = Hgb A1C) 6.4 [facility] CenterURINE AND [id number] 10:33:00 Test Item Value Reference Range Interpretation Comments UA Urobilinogen (test code = UA no gt 0.1-1.0 Urobilinogen) [facility] AND [id number] 10:33:00 Test Item Value Reference Range Interpretation Comments UA Sq Epi (test code = UA Sq Epi) None Seen [facility] AND [id number] 10:33:00 Test Item Value Reference Range Interpretation Comments UA RBC (test code = no gt See_Comment [Automa jigar message] The UA RBC) system which ge nerated this result transmit jigar reference range : <=2. The reference range was not used to interpr et this result as sonido l/abnormal. [facility] AND [id number] 10:33:00 Test Item Value Reference Range Interpretation Comments UA Bili (test code = Negative *NA*(06/18/16 UA Bili) 5:33 AM) [facility] AND [id number] 10:33:00 Test Item Value Reference Range Interpretation Comments UA Ketones (test code = UA Negative mg/dL Ketones) [facility] AND [id number] 10:33:00 Test Item Value Reference Range Interpretation Comments UA Glucose (test code = UA Negative mg/dL Glucose) [facility] AND [id number] 10:33:00 Test Item Value Reference Range Interpretation Comments UA WBC (test code = no gt See_Comment [Automa jigar message] The UA WBC) system which ge nerated this result transmit jigar reference range : <=5. The reference range was not used to interpr et this result as sonido l/abnormal. [facility] AND [id number] 10:33:00 Test Item Value Reference Range Interpretation Comments UA Leuk Est (test Negative (06/18/16 5:33 code = UA Leuk Est) AM) [facility] AND [id number] 10:33:00 Test Item Value Reference Range Interpretation Comments UA Nitrite (test code Negative (06/18/16 5:33 = UA Nitrite) AM) [facility] AND [id number] 10:33:00 Test Item Value Reference Range Interpretation Comments UA Blood (test code = Negative (06/18/16 5:33 UA Blood) AM) [facility] AND [id number] 10:33:00 Test Item Value Reference Range Interpretation Comments UA Protein (test code = UA Negative mg/dL Protein) [facility] AND [id number] 10:33:00 Test Item Value Reference Range Interpretation Comments UA Color (test code = Light Yellow UA Color) *NA*(06/18/16 5:33 AM) [facility] [id number] 10:33:00 Test Item Value Reference Range Interpretation Comments UA Turbidity (test code = Clear (06/18/16 5:33 UA Turbidity) AM) [facility] AND [id number] 10:33:00 Test Item Value Reference Range Interpretation Comments UA pH (test code = UA pH) 5.0 5.0-8.0 [facility] AND [id number] 10:33:00 Test Item Value Reference Range Interpretation Comments UA Spec Grav (test code = UA Spec Grav) 1.008 [facility] [id number] 04:28:00 Test Item Value Reference Range Interpretation Comments UA Turbidity (test code = Clear (06/17/16 11:28 UA Turbidity) PM) [facility] AND [id number] 04:28:00 Test Item Value Reference Range Interpretation Comments UA pH (test code = UA pH) 6.0 5.0-8.0 [facility] AND [id number] 04:28:00 Test Item Value Reference Range Interpretation Comments UA Color (test code = Light Yellow UA Color) *NA*(06/17/16 11:28 PM) [facility] AND [id number] 04:28:00 Test Item Value Reference Range Interpretation Comments UA Spec Grav (test code = UA Spec Grav) 1.010 [facility] AND [id number] 04:28:00 Test Item Value Reference Range Interpretation Comments UA WBC (test code = 1 See_Comment [Automa jigar message] The UA WBC) system which ge nerated this result transmit jgiar reference range : <=5. The reference range was not used to interpr et this result as sonido l/abnormal. [facility] AND [id number] 04:28:00 Test Item Value Reference Range Interpretation Comments UA Bacteria (test code = UA Occasional /HPF Bacteria) [facility] AND [id number] 04:28:00 Test Item Value Reference Range Interpretation Comments UA Glucose (test code = UA Negative mg/dL Glucose) [facility] AND [id number] 04:28:00 Test Item Value Reference Range Interpretation Comments UA Protein (test code = UA Negative mg/dL Protein) [facility] AND [id number] 04:28:00 Test Item Value Reference Range Interpretation Comments UA Urobilinogen (test code = UA no gt 0.1-1.0 Urobilinogen) [facility] AND [id number] 04:28:00 Test Item Value Reference Range Interpretation Comments UA Sq Epi (test code = UA Sq Epi) None Seen [facility] AND [id number] 04:28:00 Test Item Value Reference Range Interpretation Comments UA Leuk Est (test Negative (06/17/16 11:28 code = UA Leuk Est) PM) [facility] AND [id number] 04:28:00 Test Item Value Reference Range Interpretation Comments UA Nitrite (test code Negative (06/17/16 11:28 = UA Nitrite) PM) [facility] AND [id number] 04:28:00 Test Item Value Reference Range Interpretation Comments UA Blood (test code = Negative (06/17/16 11:28 UA Blood) PM) [facility] AND [id number] 04:28:00 Test Item Value Reference Range Interpretation Comments UA Bili (test code = Negative *NA*(06/17/16 UA Bili) 11:28 PM) [facility] AND [id number] 04:28:00 Test Item Value Reference Range Interpretation Comments UA Ketones (test code = UA Negative mg/dL Ketones) [id number] 09:20:00 Test Item Value Reference Range Interpretation Comments CHD Risk (test code = CHD Risk) 4.26 4.00-7.30 [facility] [id number] 09:20:00 Test Item Value Reference Range Interpretation Comments VLDL (test code = VLDL) 22 [facility] [id number] 09:20:00 Test Item Value Reference Range Interpretation Comments LDL (Calculated) (test code = LDL 118 (Calculated)) [facility] [id number] 09:20:00 Test Item Value Reference Range Interpretation Comments HDL (test code = HDL) 43 [id number] 09:20:00 Test Item Value Reference Range Interpretation Comments Chol (test code = Chol) 183 [facility] CenterLfvalblPQJPBX0998-84-02 09:20:00 Test Item Value Reference Range Interpretation Comments Trig (test code = Trig) 112 [facility]annCARDIAC [id number] 00:19:00 Test Item Value Reference Range Interpretation Comments Total CK (test code = Total CK) 384 [facility] MetaboliannCARDIAC [id number] 00:19:00 Test Item Value Reference Range Interpretation Comments Troponin-I (test code 7.44 See_Comment [Auto mated message] The = Troponin-I) system which g enerated this result transmit jigar reference range : <=0.40. The reference r [place] was not used to interpr et this result as sonido l/abnormal. [facility] [employer] LimitedCARNoviAC [id number] 00:19:00 Test Item Value Reference Range Interpretation Comments CK MB Index (test 4.4 See_Comment [Automate d message] The code = CK MB Index) system w [employer] generated this result transmit jigar reference range : <=2.5. The reference range was not used to interpr et this result as sonido l/abnormal. [facility] [employer]AC [id number] 00:19:00 Test Item Value Reference Range Interpretation Comments CK MB (test code = CK MB) 17.0 0.5-3.6 [facility] MetaboliannCARDIAC [id number] 19:58:00 Test Item Value Reference Range Interpretation Comments CK MB Index (test 4.8 See_Comment [Automate d message] The code = CK MB Index) system w [employer] generated this result transmit jigar reference range : <=2.5. The reference range was not used to interpr et this result as sonido l/abnormal. [facility] MetaboliannCARDIAC [id number] 19:58:00 Test Item Value Reference Range Interpretation Comments Total CK (test code = Total CK) 412 191 [facility] [employer] LimitedCARNoviAC [id number] 19:58:00 Test Item Value Reference Range Interpretation Comments CK MB (test code = CK MB) 19.8 0.5-3.6 [facility]CARDI[facility] [id number] 19:56:00 Test Item Value Reference Range Interpretation Comments Troponin-I (test code 6.52 See_Comment [Auto mated message] The = Troponin-I) system which g enerated this result transmit jigar reference range : <=0.40. The reference r [place] was not used to interpr et this result as sonido l/abnormal. [facility] [id number] 19:56:00 Test Item Value Reference Range Interpretation Comments Globulin (test code = Globulin) 3.7 2.7-4.2 [facility] [id number] 19:56:00 Test Item Value Reference Range Interpretation Comments A/G Ratio (test code = A/G Ratio) 0.9 0.7-1.6 [facility]2017-03-22 19:56:00 Test Item Value Reference Range Interpretation Comments B/C Ratio (test code = B/C Ratio) 19 6-25 [facility] [id number] 19:56:00 Test Item Value Reference Range Interpretation Comments Bili Total (test code = Bili Total) 0.5 0.2-1.3 [facility] [id number] 19:56:00 Test Item Value Reference Range Interpretation Comments Albumin Lvl (test code = Albumin Lvl) 3.3 3.5-5.0 [facility] [id number] 19:56:00 Test Item Value Reference Range Interpretation Comments Total Protein (test code = Total 7.0 6.4-8.4 Protein) [facility]2017-03-22 19:56:00 Test Item Value Reference Range Interpretation Comments Alk Phos (test code = Alk Phos) 68 39-136 [facility] CenterInternet [facility] internation [employer]. [id number] 19:56:00 Test Item Value Reference Range Interpretation Comments AST (test code = AST) 51 See_Comment [Auto mated message] The system which ge nerated this result transmit ijgar reference range : <=37. The reference range was not used to interpr et this result as sonido l/abnormal. [facility] [id number] 19:56:00 Test Item Value Reference Range Interpretation Comments ALT (test code = ALT) 44 See_Comment [Auto mated message] The system which ge nerated this result transmit jigar reference range : <=65. The reference range was not used to interpr et this result as sonido l/abnormal. [facility] [id number] 19:56:00 Test Item Value Reference Range Interpretation Comments U Cannab Scr (test Negative *NA*(06/15/16 code = U Cannab Scr) 2:56 PM) [facility] [id number] 19:56:00 Test Item Value Reference Range Interpretation Comments U Phencyc Scr (test Negative *NA*(06/15/16 code = U Phencyc Scr) 2:56 PM) [facility] [id number] 19:56:00 Test Item Value Reference Range Interpretation Comments U Opiate Scr (test Negative *NA*(06/15/16 code = U Opiate Scr) 2:56 PM) [facility] [id number] 19:56:00 Test Item Value Reference Range Interpretation Comments U Cocaine Scr (test Negative *NA*(06/15/16 code = U Cocaine Scr) 2:56 PM) [facility] [id number] 19:56:00 Test Item Value Reference Range Interpretation Comments U Benzodia Scr (test Negative *NA*(06/15/16 code = U Benzodia Scr) 2:56 PM) [facility] [id number] 19:56:00 Test Item Value Reference Range Interpretation Comments U Amph Scr (test code Negative *NA*(06/15/16 = U Amph Scr) 2:56 PM) [facility] [id number] 19:56:00 Test Item Value Reference Range Interpretation Comments U Elsy Scr (test code Negative *NA*(06/15/16 = U Elsy Scr) 2:56 PM) [facility] [id number] 19:56:00 Test Item Value Reference Range Interpretation Comments UDS Note (test code = See Note (06/15/16 2:56 UDS Note) PM) [facility] [id number] 19:56:00 Test Item Value Reference Range Interpretation Comments Hep Bs Ag (test code Negative *NA*(06/15/16 = Hep Bs Ag) 2:56 PM) [facility] [id number] 19:56:00 Test Item Value Reference Range Interpretation Comments Hep B Core IgM (test Negative *NA*(06/15/16 code = Hep B Core 2:56 PM) IgM) [facility] [id number] 19:56:00 Test Item Value Reference Range Interpretation Comments Hep C Ab (test code = Positive *ABN*(06/15/16 Hep C Ab) 2:56 PM) [facility] [id number] 19:56:00 Test Item Value Reference Range Interpretation Comments Hep A IgM (test code Negative *NA*(06/15/16 = Hep A IgM) 2:56 PM) [facility] CenterSPE[facility] [id number] 19:56:00 Test Item Value Reference Range Interpretation Comments Hgb A1C (test code = Hgb A1C) 6.6 [facility] AND [id number] 19:56:00 Test Item Value Reference Range Interpretation Comments UA pH (test code = UA pH) 5.5 1 5.0-8.0 [facility] AND [id number] 19:56:00 Test Item Value Reference Range Interpretation Comments UA Spec Grav (test code = UA Spec 1.020 1 Grav) [facility] AND [id number] 19:56:00 Test Item Value Reference Range Interpretation Comments UA Protein (test code Negative (06/15/16 2:56 = UA Protein) PM) [facility] AND [id number] 19:56:00 Test Item Value Reference Range Interpretation Comments UA Turbidity (test code = Clear (06/15/16 2:56 UA Turbidity) PM) [facility] AND [id number] 19:56:00 Test Item Value Reference Range Interpretation Comments UA Leuk Est (test Negative (06/15/16 2:56 code = UA Leuk Est) PM) [facility] AND [id number] 19:56:00 Test Item Value Reference Range Interpretation Comments Micro? (test code = Not Indicated (06/15/16 Micro?) 2:56 PM) [facility] AND [id number] 19:56:00 Test Item Value Reference Range Interpretation Comments UA Glucose (test code Negative (06/15/16 2:56 = UA Glucose) PM) [facility] AND [id number] 19:56:00 Test Item Value Reference Range Interpretation Comments UA Bili (test code = Negative *NA*(06/15/16 UA Bili) 2:56 PM) [facility] [id number] 19:56:00 Test Item Value Reference Range Interpretation Comments UA Ketones (test code Negative *NA*(06/15/16 = UA Ketones) 2:56 PM) [facility] AND [id number] 19:56:00 Test Item Value Reference Range Interpretation Comments UA Blood (test code = Negative (06/15/16 2:56 UA Blood) PM) [facility] AND [id number] 19:56:00 Test Item Value Reference Range Interpretation Comments UA Nitrite (test code Negative (06/15/16 2:56 = UA Nitrite) PM) [facility] AND [id number] 19:56:00 Test Item Value Reference Range Interpretation Comments UA Urobilinogen (test code = UA 0.2 0.1-1.0 Urobilinogen) [facility] AND [id number] 19:56:00 Test Item Value Reference Range Interpretation Comments UA Color (test code = Yellow *NA*(06/15/16 UA Color) 2:56 PM) [facility]
[2021-04-26] MEDS ORDERED: D50W 25 GM/50 ML SYRINGE IV PRN (16:38)
[2021-04-26] MEDS ORDERED: GLUCAGON 1 MG/VIAL IM PRN (16:38)
[2021-04-26] MEDS: FUROSEMIDE 40 MG TABLET PO SCH (16:39)
[2021-04-26] MEDS: SACUBITRIL/VALSARTAN 24/26 MG TAB PO SCH (19:40)
[2021-04-26] MEDS: MINOCYCLINE HCL 50 MG CAP PO SCH (19:41)
[2021-04-26] MEDS: carvediloL 6.25 MG TAB PO SCH (19:43)
[2021-04-26] MEDS: SMZ./TMP. 800/160 MG TABLET PO SCH (19:43)
[2021-04-26] MEDS: ROPINIROLE HCL 1 MG TAB PO SCH (19:43)
[2021-04-26] MEDS: APIXABAN 2.5 MG TABLET PO SCH (19:43)
[2021-04-26] MEDS: INSULIN -REGULAR HUMAN 50 UNIT/0.5 ML ML SQ SCH (19:44)
[2021-04-26] MEDS: MUPIROCIN 2% OINT 22GM TUBE TOP SCH (19:44)
[2021-04-26] MEDS: MELATONIN 5 MG TABLET PO PRN (19:48)
[2021-04-26] MEDS: ACETAMINOPHEN 325 MG TABLET PO PRN (19:48)
[2021-04-26] MEDS: ALBUTEROL 2.5 MG/3 ML NEB SOL NEB SCH (20:00)
[2021-04-26 20:14] LABS: Urine Appearance CLEAR (Clear); Urine Bilirubin NEGATIVE (Negative); Urine Blood NEGATIVE (Negative); Urine Color YELLOW (Yellow); Urine Glucose NEGATIVE (Negative); Urine Protein NEGATIVE (Negative); Urine Urobilinogen 0.2 mg/dL (0.2-1.0); Urine pH 5.5 (5.0-7.0)
[2021-04-26] MEDS ORDERED: ATORVASTATIN 40 MG TAB PO SCH (21:00)
[2021-04-26 22:09] LABS: Urine Bacteria <20 /HPF (NONE SEEN); Urine RBC NONE SEEN /HPF (NONE SEEN)
[2021-04-27] MEDS: ALBUTEROL 2.5 MG/3 ML NEB SOL NEB SCH ×4 (02:17→20:05)
[2021-04-27] MEDS: ACETAMINOPHEN 325 MG TABLET PO PRN ×3 (02:45→20:17)
[2021-04-27 04:27] LABS: Absolute Lymphocytes (CBC) 1.2 K/uL (0.7-4.9); Hematocrit 32.6 % (39.6-49.0); Lymphocytes % 23.9 % (15.3-44.8); MPV 7.6 fL (7.6-11.3); RBC Red Blood Cell Count 3.75 M/uL (4.33-5.43)
[2021-04-27 05:03] LABS: Albumin 3.2 g/dL (3.4-5.0); Potassium 4.8 mmol/L (3.5-5.1); Prealbumin 27.2 mg/dL (20-40)
[2021-04-27] MEDS ORDERED: LEVOTHYROXINE SOD 0.025 MG TAB PO SCH (06:00)
[2021-04-27 06:27] LABS: Platelet Estimate DECR
[2021-04-27 06:28] LABS: Blood Morphology Comment NOT SEEN (NOT SEEN)
[2021-04-27] MEDS: INSULIN -REGULAR HUMAN 50 UNIT/0.5 ML ML SQ SCH ×4 (07:30→20:19)
[2021-04-27] MEDS ORDERED: VALACYCLOVIR 500 MG TAB PO SCH (08:00)
[2021-04-27] MEDS ORDERED: POTASSIUM CL SA 10 MEQ TAB PO SCH (08:00)
[2021-04-27] MEDS ORDERED: MONTELUKAST 10 MG TAB PO SCH (08:00)
[2021-04-27] MEDS: carvediloL 6.25 MG TAB PO SCH (08:00)
[2021-04-27] MEDS ORDERED: CLOPIDOGREL 75 MG TABLET PO SCH (08:00)
[2021-04-27] MEDS: MUPIROCIN 2% OINT 22GM TUBE TOP SCH ×2 (08:00→20:17)
[2021-04-27] MEDS ORDERED: HOME MED 1 EA UNK (Linagliptin [Tradjenta] 5 MG) PO SCH (08:00)
[2021-04-27] MEDS: HOME MED 1 EA UNK (Linagliptin [Tradjenta] 5 MG) PO SCH (08:05)
[2021-04-27] MEDS: FUROSEMIDE 40 MG TABLET PO SCH (08:06)
[2021-04-27] MEDS: SMZ./TMP. 800/160 MG TABLET PO SCH ×2 (08:06→20:17)
[2021-04-27] MEDS: ROPINIROLE HCL 1 MG TAB PO SCH ×2 (08:06→20:18)
[2021-04-27] MEDS: APIXABAN 2.5 MG TABLET PO SCH (08:09)
[2021-04-27] MEDS: SACUBITRIL/VALSARTAN 24/26 MG TAB PO SCH (08:09)
[2021-04-27] MEDS: MINOCYCLINE HCL 50 MG CAP PO SCH ×2 (08:10→20:17)
[2021-04-27 13:11] LABS: Magnesium 2.4
[2021-04-27] MEDS: FUROSEMIDE 80 MG PO SCH (17:18)
--- NOTE | 2021-04-27 17:33 | R.HP ---
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 board/care, assisted living, fpc, transitional living) PRE-HOSPITAL LIVING WITH Alone ENCOUNTER PHYSICIAN: Dr. Eddie Hand M.D. REFERRING DOCTOR: DATE OF ADMISSION: 04/26/2021 14:12 (FISH CULTURIST) REFERRING FACILITY [facility] PRIMARY CARE PHYSICIAN EDWARD HOME TYPE AND DETAILS: Type of home: apartment # of levels in the residence: 1 # of steps within the residence: 0 # of steps to enter the residence: 0 ONSET DATE: 04/21/2021 PRIMARY DIAGNOSIS-RELATED SURGERIES: N/A HISTORY OF PRESENT ILLNESS (HPI): Pt. is a 70 yo Right-handed male. On 04/21/2021 Pt. presented to [facility] with sudden onset of left-side weakness. On 04/21/2021 he was admitted to [facility] with diagnosis STROKE. His impairment category is Stroke 01 - Left Body (Right Brain) (01.1). Pre-morbidly, Pt. was independent/mod-I in Locomotion, Safety Awareness, Social Cognition, and Balanc e; and he had good Transfers Control, Self-Care, Sphincter Control, Communication, and Endurance. Currently, he has deficits of Locomotion, Social Cognition, Safety Awareness, Balance, Sphincter Cont rol, Communication, Transfers Control, Self-Care, and Endurance. Pt. is now referred to [facility] for acute in-patient rehabilitation in order to maximize patient's functional independence in activities of daily living, strength, ROM, and mobi lity. Patient has realistic goal of being discharged at assistance level 7-Ind to reside at Home with Pt s elf. MEDICATION ALLERGIES: Iodine Povidone ENVIRONMENTAL ALLERGIES: None Known - Substance Allergies None Known - Other Allergies None Known PAST MEDICAL HISTORY: COPD DM HYPOTHYROIDISM FORMER SMOKER HYPERTENSION HYPERLIPIDEMIA CORONARY ARTERY DISEASE AFIB FATTY LIVER DISEASE PRIOR HISTORY OF HEP C CHRONIC CONSTIPATION PROSTATIC HYPERTROPHY OSTEOPOROSIS LUMBAR SPINAL STENOSIS HYPOKALEMIA PAST SURGICAL HISTORY: TEETH EXTRACTION CORONARY ARTERY BYPASS SURGERY FRACTURE OF RIGHT RADIUS ULNA HIP SURGERY KNEE SURGERY SOCIAL HISTORY: - Home Living Alone REVIEW OF SYSTEMS: - Gen No Chills Fatigue No Fever - Eyes No Double Vision No itchiness - ENMT No Difficulty Swallowing - CVS No Chest Discomfort No Chest Pain Fatigue No Weight Gain - Resp No Cough No Shortness of Breath - GI Continent No Abdominal Pain No Constipation No Diarrhea - Continent No Kidney Pain No Painful Urination No Urinary Urgency - MSK No Joint Pain Muscle Cramps Stiffness - Skin No Itching No Rash No Suspicious Lesions - Neuro Coordination Difficulty Difficulty with Concentration Memory Loss No Seizures Weakness - Psych No Anxiety No Depression No HIV Exposure No Persistent Infections No Seasonal Allergies - Endo No Cold/Heat Intolerance No Excessive Hunger No Excessive Thirst No Excessive Urination PHYSICAL EXAM - Gen Alert and awake Lying in bed No apparent distress Oriented to: person, time, and place - Skin No breakdowns No abnormalities - Eyes No abnormalities - ENMT No abnormalities - Neck No abnormalities - CVS RRR - Chest No abnormalities - Abd Obese, soft, nontender - GI nondistended Deferred - No abnormalities - Ext Moderate edema in both lower extremities. - MSK 4+/5 weakness in left upper and lower extremity - Neuro 4/5 strength left upper and lower extremities. - Psych No abnormalities VITAL SIGNS Temperature: 97.5 F SBP/DBP: 90/48 Pulse: 62 Resp: 18 NURSING: - Shower allowing shower - Bladder care per protocol - Skin care per protocol PRECAUTIONS: - Weight Bearing Precaution WBAT left LE ACTIVITIES OOB only with supervision QI SCORES: - Self-Care A. Eating 03-Partial/moderate assistance B. Oral hygiene 03-Partial/moderate assistance C. Toileting hygiene 03-Partial/moderate assistance E. Shower/bathe self 88-Not attempted due to medical condition or safety concerns F. Upper body dressing 03-Partial/moderate assistance G. Lower body dressing 03-Partial/moderate assistance H. Putting on/taking off footwear 88-Not attempted due to medical condition or safety concerns - Mobility A. Roll left and right 04-Supervision or touching assistance B. Sit to lying 04-Supervision or touching assistance C. Lying to sitting on side of bed 04-Supervision or touching assistance D. Sit to stand 04-Supervision or touching assistance E. Chair/rsv-iq-horoz transfer 04-Supervision or touching assistance F. Toilet transfer 03-Partial/moderate assistance G. Car transfer 88-Not attempted due to medical condition or safety concerns I. Walk 10 feet 04-Supervision or touching assistance J. Walk 50 feet with two turns 04-Supervision or touching assistance K. Walk 150 feet 04-Supervision or touching assistance L. Walking 10 feet on uneven surfaces 88-Not attempted due to medical condition or safety concerns M. 1 step (curb) 88-Not attempted due to medical condition or safety concerns N. 4 steps 88-Not attempted due to medical condition or safety concerns O. 12 steps 88-Not attempted due to medical condition or safety concerns P. Picking up object 88-Not attempted due to medical condition or safety concerns R. Wheel 50 feet with two turns 88-Not attempted due to medical condition or safety concerns S. Wheel 150 feet 88-Not attempted due to medical condition or safety concerns - Bladder and Bowel Bladder continence Bowel continence - Endurance Fair - Balance Fair - Safety Awareness Fair CURRENT FUNC. DEFICITS: Self-Care, Mobility, Endurance, Balance, and Safety Awareness MEDICATIONS: - Other See attached MAR (Medication Administration Record) ASSESSMENT: Pt. is a 70 yo Right-handed male.On 04/21/2021 Pt. presented to [facility] with sudden o nset of left-side weakness.On 04/21/2021 he was admitted to [facility] with diagnosis [facility] ROKE.His impairment category is Stroke 01 - Left Body (Right Brain) (01.1).Pre-morbidly, Pt. was ind ependent/mod-I in Locomotion, Safety Awareness, Social Cognition, and Balance; and he had good Transf ers Control, Self-Care, Sphincter Control, Communication, and Endurance.Currently, he has deficits of Locomotion, Social Cognition, Safety Awareness, Balance, Sphincter Control, Communication, Transfers Control, Self-Care, and Endurance.Pt. is now referred to [facility] for acute in-patient rehabilitation in order to maximize patient's functional independence in activities of da zulma living, strength, ROM, and mobility.- Rehab Goal Patient has realistic goal of being discharged at assistance level 7-Ind to reside at Home with Pt s elf. for Dementia, TBI, Stroke, or others - Physical Therapy Gait dysfunction - to improve, our physical therapists will perform initial evaluation of pt's status upon admission and devise an individualized program for Gait Training, and Wheel Chair mobility Inability to transfer - to improve, our physical therapists will perform initial evaluation of pt's s tatus upon admission and devise an individualized program for Bed mobility Need for home safety evaluation - to improve, our physical therapists will perform initial evaluation of pt's status upon admission and devise an individualized program for Home Evaluation Need in caregiver upon discharge - to improve, our physical therapists will perform initial evaluatio n of pt's status upon admission and devise an individualized program for Caregiver Training New precaution - to improve, our physical therapists will perform initial evaluation of pt's status u yayo admission and devise an individualized program for Patient precaution education Edema - to improve, our physical therapists will perform initial evaluation of pt's status upon admi ssion and devise an individualized program for Elevation Training, and Lymphedema Therapy Poor balance - to improve, our physical therapists will perform initial evaluation of pt's status upo n admission and devise an individualized program for Balance Training Poor endurance - to improve, our physical therapists will perform initial evaluation of pt's status u yayo admission and devise an individualized program for Endurance Training Weakness - to improve, our physical therapists will perform initial evaluation of pt's status upon ad mission and devise an individualized program for Aquatic Therapy, Neuromuscular Reeducation, and Stre ngthening Achieving independence - to improve, our physical therapists will perform initial evaluation of pt's status upon admission and devise an individualized program for Community Reintegration Activities - Occupational Therapy ADL deficits - to improve, our occupation therapists will perform initial evaluation of pt's status u yayo admission and devise an individualized program for Bathing, Bed mobility, Community Reintegration , Cooking, Dressing, Eating, Fine Motor Skills, Grooming, Homemaking, Kitchen Mobility, Laundry, Carline ent Education, Safety Awareness, Splinting - Positioning, Transfers(Toilet, Tub, Shower), and Wheel C hair Management Cognitive deficits - to improve, our occupation therapists will perform initial evaluation of pt's st atus upon admission and devise an individualized program for Cognition - orientation Need for nursing care partner - to improve, our occupation therapists will perform initial evaluation of pt's s tatus upon admission and devise an individualized program for Caregiver Training Weakness - to improve, our occupation therapists will perform initial evaluation of pt's status upon admission and devise an individualized program for Aquatic Therapy, Balance, Endurance, UE ROM, and U E strengthening MEDICAL PLAN: - Diet Type Start Regular - Diet - Liquid Texture Start Regular - Tube Feed Start N/A - Bladder care per protocol - Weight Bearing Precaution WBAT left LE - Skin care per protocol - Other See attached MAR (Medication Administration Record) - Diet - Solid Texture Start Regular Start Mechanical Soft Bite Sized-6 (Chopped) - Shower shower DISCHARGE PLAN: - Estimated Length of Stay (days) 14. - Consensus on plan Discharge plan has been discussed with primary caregiver. Patient/Family is in agreement with the jese n. Primary caregiver is in agreement with the plan. - Patient/Family Goals Return home independently. - Planned Living Setting Upon Discharge Home, to live alone. Transitional Living. Primary caregiver: Pt self. 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
--- NOTE | 2021-04-27 17:35 | PAPE ---
POST ADMISSION PHYSICIAN EVALUATION PATIENT: [facility] MR# [id number] REFERRING DOCTOR PRIMARY CARE PHYSICIAN EDWARD EVALUATION DATE AND TIME 04/27/2021 17:24 (ENTRY LEVEL) NAME CHYNA RYAN DATE OF 1950 AGE 70 PHONE SSN# [id number] GENDER male EVALUATING PHYSICIAN Dr. Eddie Hand M.D. ADMISSION DIAGNOSIS: STROKE ONSET DATE 04/21/2021 POST-ADMISSION FUNCTIONAL/MEDICAL STATUS: - Bladder Same accident frequency: 7-Ind - No accidents in the past 7 days - Bowel Same accident frequency: 7-Ind - No accidents in the past 7 days - Walking Same score based on distance walked: 0(N/A) Same score based on distance walked: 3(>=150ft) - Wheelchair Same score based on distance traveled: 0(N/A) STATUS CHANGE EVALUATION: No change in Functional or Medical Status is identified compared with Pre-Admission screening. PATIENT NEEDS CLOSE MEDICAL SUPERVISION BY A REHABILITATION PHYSICIAN FOR: Coordination of Treatment Team Medical and Co-Morbidity Management Pain Management DVT Management Diabetes Management PATIENT REQUIRES 24X7 REHAB NURSING FOR MEDICAL AND FUNCTIONAL MGT. OF THE FOLLOWING DEFICITS: Disease Management Medication Management Patient/Family Education Providing Safe Environment Skin Integrity Bowel and Bladder Management PATIENT REQUIRES INTENSIVE, COORDINATED INTERDISCIPLINARY APPROACH TO REHAB: Arranging Home Equipment/Services Discharge Planning Family Intervention/Training Density Control Puncher/Case Management LIST OF IDENTIFIED AND POTENTIAL PROBLEMS: Alteration in leisure activities Bladder, Incontinence Bowel, Incontinence Infection, Actual or Potential Mobility Impaired Pain, Alteration in Comfort Self Care Deficit Skin Integrity, Actual or Potential Urinary Tract Infection (UTI), Actual or Potential RISK FOR COMPLICATIONS - Pneumonia pt will be instructed on importance of deep breathing. regular OOB activity and exercise to reduce ri sk. - DVT Medications will be administered as per MD. PTT and INR will be monitored to effectively mitigate ris k for development of DVT or PE while here. - CVA pt has A-Fib and requires medical monitoring and medication management to reduce risk for CVA. pt's b lood pressures have been inconsistent and require monitoring and medication management as inidicated by physician. - Falls Educated pt on fall prevention strategies to reduce/eliminate fall risk. Patient will be evaluated fo r Fall Precautions and will be placed on Fall Precautions as indicated per protocol. - Skin Breakdown Nursing will assess skin daily using assessment tool and will place on Skin Breakdown Precautions as Indicated per protocol. - Diabetic Complications Regular monitoring and management of blood glucose levels. pt will receive a specialized diet to help manage blood glucose levels. - UTI Monitor for frequency, burning, discomfort, or incontinence. Physician medical management as warrante d. - L UE Injury Education and monitoring of limb awareness and safety to prevent injury. INTERVENTIONS - Diabetes Monitor blood glucose levels and administer medication as indicated by Physician. Diet will be custom ized to manage diabetic needs. - HTN Blood pressure will be regularly assessed and medications administered as per physician recommendatio ns. - Hypothyroid Administer Meds as per MD. - Hyperlipidemia Administer medications as per MD. - CAD Vitals will be regularly monitored and symptoms managed. Administer Medication as indicated by physic mariya. - Atrial Fibrillation Administer medications as directed by physician. - CVA/TIA Monitor progressions. - L UE paraesthesias Education and monitoring of limb awareness and safety to prevent injury. PATIENT COULD BE AT RISK FOR COMPLICATIONS FROM ADVERSE MEDICAL CONDITIONS DUE TO HIS/HER COMORBIDITI ES AND THE RIGORS OF THE INTENSIVE REHABILLITATION PROGRAM. METHODS OR INTERVENTIONS TO AVOID COMPLIC ATIONS INCLUDE: - Deep Vein Thrombosis (DVT) Prophylaxis therapy for prevention . Sequential Compression Device (SCD). TE D Hose. - Bleeding Stroke patients assessed for lethargy or change in status. - Infection Clinical staff to assess and manage the signs and symptoms of infection including fever, redness, war mth, etc. - Urinary Tract Infection - Aspiration Clinical staff will assess and manage coughing, drooling, congestion. - Falls Patient will be evaluated for Fall Precautions and will be placed on Fall Precautions as indicated pe r protocol. - Skin Breakdown Nursing will assess skin daily using assessment tool and will place on Skin Breakdown Precautions as indicated per protocol. - Pain Clinical staff may employ non-medication methods such as massage, distraction, decrease stimulus, etc . as needed. Clinical staff will assess patient's pain level every shift per protocol to assess and e nsure pain management effectiveness. Medications will be given and the pain level re-assessed. PRELIMINARY PLAN OF CARE: - Physical Therapy Patient needs Physical Therapy for a daily minimum of 1.5 hours at least 5 out of 7 days, to improve: Mobility, Strengthening, Transfers, Stretching, ROM, Endurance, Ability to manage stairs, Gait, and Balance. - Speech Therapy Patient needs Speech Therapy for a daily minimum of 0.5 hours at least 5 out of 7 days, to improve: S wallowing, Cognition, Language Skills, and Compensatory Strategies. - Rehabilitation Nursing Patient requires 24x7 Rehabilitation Nursing for: Pain Issues, Identifying and preventing risk factor s, Monitoring and reporting current medical conditions, Assisting with ambulation and transfer, Nany ting with all ADL-s, Teaching patients about disease process and medications, Family teaching, Provid ing safe environment, Bowel and Bladder Issues, Skin Integrity, and Medication Management. Patient needs Density Control Puncher and/or Case Management for: Discharge Planning, Arranging Home Equipmen t or Services, and Family Interventions. - Dietary and Nutrition Services Patient needs Dietary and Nutrition Services for: Adequate Nutrition, Nutritional Supplements, and Nu tritional Education. - Occupational Therapy Patient needs Occupational Therapy for a daily minimum of 1.5 hours at least 5 out of 7 days, to impr ove Activities of Daily Living, including: Eating, Grooming, Bathing, Dressing, Toileting, Toilet Tra nsfers, Community Reintegration, Higher functional activities, Adaptive Equipment, Splinting, Househo ld Tasks, and Other activities as determined. QI SCORES: - Self-Care A. Eating 03-Partial/moderate assistance B. Oral hygiene 03-Partial/moderate assistance C. Toileting hygiene 03-Partial/moderate assistance E. Shower/bathe self 88-Not attempted due to medical condition or safety concerns F. Upper body dressing 03-Partial/moderate assistance G. Lower body dressing 03-Partial/moderate assistance H. Putting on/taking off footwear 88-Not attempted due to medical condition or safety concerns - Mobility A. Roll left and right 04-Supervision or touching assistance B. Sit to lying 04-Supervision or touching assistance C. Lying to sitting on side of bed 04-Supervision or touching assistance D. Sit to stand 04-Supervision or touching assistance E. Chair/phq-if-eatwc transfer 04-Supervision or touching assistance F. Toilet transfer 03-Partial/moderate assistance G. Car transfer 88-Not attempted due to medical condition or safety concerns I. Walk 10 feet 04-Supervision or touching assistance J. Walk 50 feet with two turns 04-Supervision or touching assistance K. Walk 150 feet 04-Supervision or touching assistance L. Walking 10 feet on uneven surfaces 88-Not attempted due to medical condition or safety concerns M. 1 step (curb) 88-Not attempted due to medical condition or safety concerns N. 4 steps 88-Not attempted due to medical condition or safety concerns O. 12 steps 88-Not attempted due to medical condition or safety concerns P. Picking up object 88-Not attempted due to medical condition or safety concerns R. Wheel 50 feet with two turns 88-Not attempted due to medical condition or safety concerns S. Wheel 150 feet 88-Not attempted due to medical condition or safety concerns - Bladder and Bowel Bladder continence Bowel continence - Endurance Fair - Balance Fair - Safety Awareness Fair POTENTIAL FUNCTIONAL GOALS FOR PATIENT TO ACHIEVE BY DISCHARGE: - Safety Precaution Patient will remain free from falls or injury at time of discharge. - Bed Mobility Patient will perform bed mobility at 4-Michael level of assistance. - Transfers Patient will complete transfers from bed to chair at 4-Michael level of assistance. - Mobility Patient will ambulate 150 ft with 4-Michael level of assistance with RW. PATIENT REHAB POTENTIAL Osvaldo RYAN is able and expected to receive 3 hours of individualized therapy daily on at least 5 of ev stella 7 days Osvaldo RYAN's prognosis for significant practical improvement within a reasonable period of time appear s Good Expected level of measurable improvement will be of a practical value to Osvaldo RYAN's functional capac ity or adaptations to impairments Has a viable Discharge Plan Medically appropriate; condition is sufficiently stable to participate in intensive rehab program DISCHARGE PLAN: - Estimated Length of Stay (days) 14. - Consensus on plan Discharge plan has been discussed with primary caregiver. Patient/Family is in agreement with the jese n. Primary caregiver is in agreement with the plan. - Patient/Family Goals Return home independently. - Planned Living Setting Upon Discharge Home, to live alone. Transitional Living. Primary caregiver: Pt self. CONCLUSION ON REHABILITATION NECESSITY: I have evaluated patient's pre-admission functional status and, comparing it to the patient's post-ad mission functional status now, I conclude that the pre-admission assessment was accurate. Patient's c ondition on admission supports the medical necessity of admission to IRF. It is safe to proceed with patient's therapy program. SIGNATURE PANEL: (ENTRY LEVEL)
--- NOTE | 2021-04-27 18:43 | PN ---
Date of Progress Note: 04/27/2021 Subjective: The patient was seen this morning for followup. No new complaints or problems reported by him this morning when I saw him on the rehab floor, except he was having his cough, which is his c hronic ongoing complaints for many years. Objective: Vital Signs: Reviewed. HEENT: Unremarkable. Lungs: Bilateral good equal air entry. No rales. No wheezing. Heart: Sounds normal. Abdomen: Soft. Bowel sounds normal. No guarding, rigidity, tenderness, distention. Extremities: Bilateral grade 1 pedal edema. Laboratory Data: Labs done today. White count 5, hemoglobin 10.7, platelets 135. Sodium 141, potas sium 4.8, chloride 112, bicarb 24, BUN 36, creatinine 1.88, glucose 92. Impression: 1.Stroke. 2.Hypertension. 3.Hyperlipidemia. 4.Chronic systolic congestive heart failure. 5.Chronic kidney disease. Plan: We will go ahead and continue current medications. We will continue to provide physical thera py under guidance of Dr. Hand. Continue current medical management and I will see him tomorrow f or followup. Details and plan of treatment discussed with him today. ANNA/MODL Voice ID: [id number] Report ID: [id number]
[2021-04-27] MEDS ORDERED: COREG 6.25 MG PO SCH (20:00)
[2021-04-27] MEDS: MELATONIN 5 MG TABLET PO PRN (20:17)
[2021-04-27] MEDS: SACUBITRIL PO SCH (20:18)
[2021-04-27] MEDS: APIXABAN 2.5 MG PO SCH (20:18)
[2021-04-27] MEDS: VALSARTAN PO SCH (20:18)
[2021-04-27] MEDS: CARVEDILOL 6.25 MG PO SCH (20:18)
[2021-04-27] MEDS ORDERED: ATORVASTATIN 80 MG PO SCH (21:00)
[2021-04-28] MEDS: ACETAMINOPHEN 325 MG TABLET PO PRN ×3 (00:18→23:09)
[2021-04-28] MEDS: ALBUTEROL 2.5 MG/3 ML NEB SOL NEB SCH ×4 (01:00→20:00)
[2021-04-28] MEDS ORDERED: LEVOTHYROXINE PO SCH (06:00)
[2021-04-28] MEDS: INSULIN -REGULAR HUMAN 50 UNIT/0.5 ML ML SQ SCH ×4 (07:30→21:00)
[2021-04-28] MEDS: VALSARTAN PO SCH (08:00)
[2021-04-28] MEDS: SACUBITRIL PO SCH (08:00)
[2021-04-28] MEDS ORDERED: VALACYCLOVIR 500 MG TAB FT SCH (08:00)
[2021-04-28] MEDS ORDERED: CLOPIDOGREL 75 MG PO SCH (08:00)
[2021-04-28] MEDS ORDERED: MONTELUKAST 10 MG PO SCH (08:00)
[2021-04-28] MEDS ORDERED: POTASSIUM CHLORIDE 20 MEQ PO SCH (08:00)
[2021-04-28] MEDS: SMZ./TMP. 800/160 MG TABLET PO SCH ×2 (09:02→21:03)
[2021-04-28] MEDS: MINOCYCLINE HCL 50 MG CAP PO SCH ×2 (09:02→21:00)
[2021-04-28] MEDS: APIXABAN 2.5 MG PO SCH (09:08)
[2021-04-28] MEDS: FUROSEMIDE 80 MG PO SCH (09:11)
[2021-04-28] MEDS: HOME MED 1 EA UNK (Linagliptin [Tradjenta] 5 MG) PO SCH (09:11)
[2021-04-28] MEDS: ROPINIROLE HCL 1 MG TAB PO SCH (09:13)
[2021-04-28] MEDS: CARVEDILOL 6.25 MG PO SCH (09:14)
[2021-04-28] MEDS: MUPIROCIN 2% OINT 22GM TUBE TOP SCH ×2 (09:15→21:00)
[2021-04-28] MEDS: LASIX 80 MG PO SCH (17:00)
--- NOTE | 2021-04-28 17:01 | P.PN ---
Mr. Berg has tested positive for covid-019. For infection control purposes, he will be moved to an acute covid-19 unit to continue his intensive inpatient rehabilitation program in accordance with the covid-19 Emergency Declaration [facility] as updated February 22, 2021.
--- NOTE | 2021-04-28 18:02 | R.PN ---
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 SUBJECTIVE: Pt denied any depression. Pt denied any Shortness of Breath. He tested positive for covid-19 today and will be transferred to the covid-19 unit on the 4th floor t o continue aggressive rehabilitation. WBC 5.0, Hgb 10.7, glucose 78 to 121, Toe Lining Closer 1.88, prealbumin 27.2. He ambulated 380' with contact guard assistance using a rolling walker. Up and down 5 steps with mini mum assistance using bilateral handrails. VITAL SIGNS Temperature: 97.0 F SBP/DBP: 112/61 Pulse: 67 Resp: 16 O2 Sat: 98 % on room air. MEDICATION ALLERGIES: Iodine Povidone ENVIRONMENTAL ALLERGIES: None Known - Substance Allergies None Known - Other Allergies None Known NURSING: - Shower allowing shower - Bladder care per protocol - Skin care per protocol PRECAUTIONS: - Weight Bearing Precaution WBAT left LE ACTIVITIES OOB only with supervision THERAPIES: - Dietary and Nutrition Adequate Nutrition. Nutritional Education. Nutritional Supplements. - Occupational Therapy Cognitive Retraining. Evaluate and Treat. Transfer Training. ADL Training. Adaptive Equipment. UE Str engthening. Household Tasks. Patient/Family Education. Safety Awareness. Visual Perceptual Training. - Speech Therapy Cognitive Training. Expressive Language Skills. Memory Strategies. Receptive Language Skills. Speech Intelligibility Training. - Physical Therapy Gait Training. Evaluate and Treat. Balance Training. LE Strengthening. Transfer Training. Mobility Tr aining. Safety Awareness. Patient/Family Education. PHYSICAL EXAM - Gen Alert and awake Lying in bed No apparent distress Oriented to: person, time, and place - Skin No breakdowns No abnormalities - Eyes No abnormalities - ENMT No abnormalities - Neck No abnormalities - CVS RRR - Chest No abnormalities - Abd Obese, soft, nontender - GI nondistended Deferred - No abnormalities - Ext Moderate edema in both lower extremities. - MSK 4+/5 weakness in left upper and lower extremity - Neuro 4/5 strength left upper and lower extremities. - Psych No abnormalities ASSESSMENT: Pt. is a 70 yo Right-handed male.On 04/21/2021 Pt. presented to [facility] with sudden o nset of left-side weakness.On 04/21/2021 he was admitted to [facility] with diagnosis [facility].His impairment category is Stroke 01 - Left Body (Right Brain) (01.1).Pre-morbidly, Pt. was ind ependent/mod-I in Locomotion, Safety Awareness, Social Cognition, and Balance; and he had good Transf ers Control, Self-Care, Sphincter Control, Communication, and Endurance.Currently, he has deficits of Locomotion, Social Cognition, Safety Awareness, Balance, Sphincter Control, Communication, Transfers Control, Self-Care, and Endurance.Pt. is now referred to [facility] for acute in-patient rehabilitation in order to maximize patient's functional independence in activities of da zulma living, strength, ROM, and mobility.- Rehab Goal Patient has realistic goal of being discharged at assistance level 7-Ind to reside at Home with Pt s elf. MDM/PLAN: - Physical Therapy Gait dysfunction - to improve, our physical therapists will perform initial evaluation of pt's statu s upon admission and devise an individualized program for Gait Training, and Wheel Chair mobility Inability to transfer - to improve, our physical therapists will perform initial evaluation of pt's status upon admission and devise an individualized program for Bed mobility Need for home safety evaluation - to improve, our physical therapists will perform initial evaluatio n of pt's status upon admission and devise an individualized program for Home Evaluation Need in caregiver upon discharge - to improve, our physical therapists will perform initial evaluati on of pt's status upon admission and devise an individualized program for Caregiver Training New precaution - to improve, our physical therapists will perform initial evaluation of pt's status upon admission and devise an individualized program for Patient precaution education Edema - to improve, our physical therapists will perform initial evaluation of pt's status upon admis jessica and devise an individualized program for Elevation Training, and Lymphedema Therapy Poor balance - to improve, our physical therapists will perform initial evaluation of pt's status up on admission and devise an individualized program for Balance Training Poor endurance - to improve, our physical therapists will perform initial evaluation of pt's status upon admission and devise an individualized program for Endurance Training Weakness - to improve, our physical therapists will perform initial evaluation of pt's status upon a dmission and devise an individualized program for Aquatic Therapy, Neuromuscular Reeducation, and Str engthening Achieving independence - to improve, our physical therapists will perform initial evaluation of pt's status upon admission and devise an individualized program for Community Reintegration Activities - Occupational Therapy ADL deficits - to improve, our occupation therapists will perform initial evaluation of pt's status upon admission and devise an individualized program for Bathing, Bed mobility, Community Reintegratio n, Cooking, Dressing, Eating, Fine Motor Skills, Grooming, Homemaking, Kitchen Mobility, Laundry, Pat ient Education, Safety Awareness, Splinting - Positioning, Transfers(Toilet, Tub, Shower), and Wheel Chair Management Cognitive deficits - to improve, our occupation therapists will perform initial evaluation of pt's s tatus upon admission and devise an individualized program for Cognition - orientation Need for health care coach - to improve, our occupation therapists will perform initial evaluation of pt's status upon admission and devise an individualized program for Caregiver Training Weakness - to improve, our occupation therapists will perform initial evaluation of pt's status upon admission and devise an individualized program for Aquatic Therapy, Balance, Endurance, UE ROM, and UE strengthening - Other See attached MAR (Medication Administration Record) - Diet Type Continue Regular - Diet - Liquid Texture Continue Regular - Tube Feed Continue N/A - Bladder care per protocol - Weight Bearing Precaution WBAT left LE - Skin care per protocol - Diet - Solid Texture Continue Regular Continue Mechanical Soft Bite Sized-6 (Chopped) - Shower allowing shower for Dementia, TBI, Stroke, or others FUNCTIONAL STATUS: UPDATED AT WEEKLY TEAM CONFERENCE - Bladder Same accident frequency: 7-Ind - No accidents in the past 7 days - Bowel Same accident frequency: 7-Ind - No accidents in the past 7 days - Walking Same score based on distance walked: 0(N/A) Same score based on distance walked: 3(>=150ft) - Wheelchair Same score based on distance traveled: 0(N/A) FUNCTIONAL STATUS: - Self-Care A. Eating Ind B. Grooming Peter C. Bathing sup D. Dressing - Upper sup E. Dressing - Lower Michael F. Toileting Michael - Sphincter Control G. Bladder control Peter H. Bowel control Peter - Transfers Control I. Bed/Chair/Wheelchair sup J. Toilet sup K. Tub/Shower Michael - Locomotion L. Walk/Wheelchair (B) Michael M. Stairs modA - Communication N. Comprehension (B) sup O. Expression (B) sup - Social Cognition P. Social Interaction Peter Q. Problem Solving sup R. Memory sup - Endurance Fair - Balance Fair - Safety Awareness Fair QI SCORES: - Self-Care A. Eating 03-Partial/moderate assistance B. Oral hygiene 03-Partial/moderate assistance C. Toileting hygiene 03-Partial/moderate assistance E. Shower/bathe self 88-Not attempted due to medical condition or safety concerns F. Upper body dressing 03-Partial/moderate assistance G. Lower body dressing 03-Partial/moderate assistance H. Putting on/taking off footwear 88-Not attempted due to medical condition or safety concerns - Mobility A. Roll left and right 04-Supervision or touching assistance B. Sit to lying 04-Supervision or touching assistance C. Lying to sitting on side of bed 04-Supervision or touching assistance D. Sit to stand 04-Supervision or touching assistance E. Chair/[id number] transfer 04-Supervision or touching assistance F. Toilet transfer 03-Partial/moderate assistance G. Car transfer 88-Not attempted due to medical condition or safety concerns I. Walk 10 feet 04-Supervision or touching assistance J. Walk 50 feet with two turns 04-Supervision or touching assistance K. Walk 150 feet 04-Supervision or touching assistance L. Walking 10 feet on uneven surfaces 88-Not attempted due to medical condition or safety concerns M. 1 step (curb) 88-Not attempted due to medical condition or safety concerns N. 4 steps 88-Not attempted due to medical condition or safety concerns O. 12 steps 88-Not attempted due to medical condition or safety concerns P. Picking up object 88-Not attempted due to medical condition or safety concerns R. Wheel 50 feet with two turns 88-Not attempted due to medical condition or safety concerns S. Wheel 150 feet 88-Not attempted due to medical condition or safety concerns - Bladder and Bowel Bladder continence Bowel continence - Endurance Fair - Balance Fair - Safety Awareness Fair CURRENT FUNC. DEFICITS: Self-Care, Mobility, Endurance, Balance, and Safety Awareness SIGNATURE PANEL: ([facility])
[2021-04-28] MEDS: ELIQUIS 2.5 MG PO SCH (21:00)
[2021-04-28] MEDS: ATORVASTATIN 80 MG PO SCH (21:00)
[2021-04-28] MEDS: ROPINIROLE 1 MG PO SCH (21:00)
[2021-04-28] MEDS: ENTRESTO PO SCH (21:00)
[2021-04-28] MEDS: COREG 6.25 MG PO SCH (21:00)
[2021-04-29] MEDS: ALBUTEROL 2.5 MG/3 ML NEB SOL NEB SCH ×4 (02:35→20:45)
[2021-04-29] MEDS: ACETAMINOPHEN 325 MG TABLET PO PRN ×2 (02:50→20:39)
--- NOTE | 2021-04-29 04:24 | DS ---
ANNA/ARMANDO Voice ID: [id number] Report ID: [id number]
[2021-04-29] MEDS: INSULIN -REGULAR HUMAN 50 UNIT/0.5 ML ML SQ SCH ×4 (07:30→21:00)
[2021-04-29] MEDS: HOME MED 1 EA UNK (Linagliptin [Tradjenta] 5 MG) PO SCH (08:13)
[2021-04-29] MEDS: MUPIROCIN 2% OINT 22GM TUBE TOP SCH ×2 (09:00→20:45)
[2021-04-29] MEDS: ELIQUIS 2.5 MG PO SCH ×2 (10:32→20:42)
[2021-04-29] MEDS: ENTRESTO PO SCH ×2 (10:34→20:44)
[2021-04-29] MEDS: LASIX 80 MG PO SCH ×2 (10:35→17:14)
[2021-04-29] MEDS: ROPINIROLE 1 MG PO SCH ×2 (10:36→20:42)
[2021-04-29] MEDS: COREG 6.25 MG PO SCH ×2 (10:37→20:45)
[2021-04-29] MEDS: POTASSIUM CHLORIDE 20 MEQ PO SCH (10:37)
[2021-04-29] MEDS: PLAVIX 75 MG PO SCH (10:39)
[2021-04-29] MEDS: VALACYCLOVIR 500 MG PO SCH (10:40)
[2021-04-29] MEDS: MONTELUKAST 10 MG PO SCH (10:41)
[2021-04-29] MEDS: SMZ./TMP. 800/160 MG TABLET PO SCH ×2 (10:51→20:38)
[2021-04-29] MEDS: MINOCYCLINE HCL 50 MG CAP PO SCH ×2 (11:41→20:39)
--- NOTE | 2021-04-29 15:12 | RAD REPORT ---
EXAM DESCRIPTION: RAD - Chest Single View - 04/29/2021 2:56 pm CLINICAL HISTORY: COVID Chest pain. COMPARISON: Chest Single View dated 04/21/2021; Chest Single View dated 09/28/2020; Chest Single View d ated 08/26/2020; Chest Single View dated 06/29/2020 FINDINGS: Portable technique limits examination quality. Mild bilateral pulmonary opacities are present likely representing a viral infection. The heart is mo derately enlarged. Sternotomy wires present.
--- NOTE | 2021-04-29 17:28 | R.PN ---
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 SUBJECTIVE: Pt denied any depression. Pt denied any Shortness of Breath. He tested positive for covid-19 today and will be transferred to the covid-19 unit on the 4th floor t o continue aggressive rehabilitation. WBC 5.0, Hgb 10.7, glucose 81 to 88, Globe Tester 1.88, prealbumin 27.2. He ambulated 270' with minimum assistance using a rolling walker. COVID-19 was positive on 04/28/21. Chest X-ray: bilateral pulmonary opacities likely secondary to viral infection. VITAL SIGNS Temperature: 97.6 F SBP/DBP: 104/64 Pulse: 62 Resp: 16 O2 Sat: 98 % on 2L NC. MEDICATION ALLERGIES: Iodine Povidone ENVIRONMENTAL ALLERGIES: None Known - Substance Allergies None Known - Other Allergies None Known NURSING: - Shower allowing shower - Bladder care per protocol - Skin care per protocol PRECAUTIONS: - Weight Bearing Precaution WBAT left LE ACTIVITIES OOB only with supervision THERAPIES: - Dietary and Nutrition Adequate Nutrition. Nutritional Education. Nutritional Supplements. - Occupational Therapy Cognitive Retraining. Evaluate and Treat. Transfer Training. ADL Training. Adaptive Equipment. UE Str engthening. Household Tasks. Patient/Family Education. Safety Awareness. Visual Perceptual Training. - Speech Therapy Cognitive Training. Expressive Language Skills. Memory Strategies. Receptive Language Skills. Speech Intelligibility Training. - Physical Therapy Gait Training. Evaluate and Treat. Balance Training. LE Strengthening. Transfer Training. Mobility Tr aining. Safety Awareness. Patient/Family Education. PHYSICAL EXAM - Gen Alert and awake Lying in bed No apparent distress Oriented to: person, time, and place - Skin No breakdowns No abnormalities - Eyes No abnormalities - ENMT No abnormalities - Neck No abnormalities - CVS RRR - Chest No abnormalities - Abd Obese, soft, nontender - GI nondistended Deferred - No abnormalities - Ext Moderate edema in both lower extremities. - MSK 4+/5 weakness in left upper and lower extremity - Neuro 4/5 strength left upper and lower extremities. - Psych No abnormalities ASSESSMENT: Pt. is a 70 yo Right-handed male.On 04/21/2021 Pt. presented to [facility] with sudden o nset of left-side weakness.On 04/21/2021 he was admitted to [facility] with diagnosis [facility].His impairment category is Stroke 01 - Left Body (Right Brain) (01.1).Pre-morbidly, Pt. was ind ependent/mod-I in Locomotion, Safety Awareness, Social Cognition, and Balance; and he had good Transf ers Control, Self-Care, Sphincter Control, Communication, and Endurance.Currently, he has deficits of Locomotion, Social Cognition, Safety Awareness, Balance, Sphincter Control, Communication, Transfers Control, Self-Care, and Endurance.Pt. is now referred to [facility] for acute in-patient rehabilitation in order to maximize patient's functional independence in activities of da zulma living, strength, ROM, and mobility.- Rehab Goal Patient has realistic goal of being discharged at assistance level 7-Ind to reside at Home with Pt s elf. MDM/PLAN: - Physical Therapy Gait dysfunction - to improve, our physical therapists will perform initial evaluation of pt's statu s upon admission and devise an individualized program for Gait Training, and Wheel Chair mobility Inability to transfer - to improve, our physical therapists will perform initial evaluation of pt's status upon admission and devise an individualized program for Bed mobility Need for home safety evaluation - to improve, our physical therapists will perform initial evaluatio n of pt's status upon admission and devise an individualized program for Home Evaluation Need in caregiver upon discharge - to improve, our physical therapists will perform initial evaluati on of pt's status upon admission and devise an individualized program for Caregiver Training New precaution - to improve, our physical therapists will perform initial evaluation of pt's status upon admission and devise an individualized program for Patient precaution education Edema - to improve, our physical therapists will perform initial evaluation of pt's status upon admi ssion and devise an individualized program for Elevation Training, and Lymphedema Therapy Poor balance - to improve, our physical therapists will perform initial evaluation of pt's status up on admission and devise an individualized program for Balance Training Poor endurance - to improve, our physical therapists will perform initial evaluation of pt's status upon admission and devise an individualized program for Endurance Training Weakness - to improve, our physical therapists will perform initial evaluation of pt's status upon a dmission and devise an individualized program for Aquatic Therapy, Neuromuscular Reeducation, and Str engthening Achieving independence - to improve, our physical therapists will perform initial evaluation of pt's status upon admission and devise an individualized program for Community Reintegration Activities - Occupational Therapy ADL deficits - to improve, our occupation therapists will perform initial evaluation of pt's status upon admission and devise an individualized program for Bathing, Bed mobility, Community Reintegratio n, Cooking, Dressing, Eating, Fine Motor Skills, Grooming, Homemaking, Kitchen Mobility, Laundry, Pat ient Education, Safety Awareness, Splinting - Positioning, Transfers(Toilet, Tub, Shower), and Wheel Chair Management Cognitive deficits - to improve, our occupation therapists will perform initial evaluation of pt's s tatus upon admission and devise an individualized program for Cognition - orientation Need for childcare aide - to improve, our occupation therapists will perform initial evaluation of pt's status upon admission and devise an individualized program for Caregiver Training Weakness - to improve, our occupation therapists will perform initial evaluation of pt's status upon admission and devise an individualized program for Aquatic Therapy, Balance, Endurance, UE ROM, and UE strengthening - Other See attached MAR (Medication Administration Record) - Diet Type Continue Regular - Diet - Liquid Texture Continue Regular - Tube Feed Continue N/A - Bladder care per protocol - Weight Bearing Precaution WBAT left LE - Skin care per protocol - Diet - Solid Texture Continue Regular Continue Mechanical Soft Bite Sized-6 (Chopped) - Shower allowing shower for Dementia, TBI, Stroke, or others FUNCTIONAL STATUS: UPDATED AT WEEKLY TEAM CONFERENCE - Bladder Same accident frequency: 7-Ind - No accidents in the past 7 days - Bowel Same accident frequency: 7-Ind - No accidents in the past 7 days - Walking Same score based on distance walked: 0(N/A) Same score based on distance walked: 3(>=150ft) - Wheelchair Same score based on distance traveled: 0(N/A) FUNCTIONAL STATUS: - Self-Care A. Eating Ind B. Grooming Peter C. Bathing sup D. Dressing - Upper sup E. Dressing - Lower Michael F. Toileting Michael - Sphincter Control G. Bladder control Peter H. Bowel control Peter - Transfers Control I. Bed/Chair/Wheelchair sup J. Toilet sup K. Tub/Shower Michael - Locomotion L. Walk/Wheelchair (B) Michael M. Stairs modA - Communication N. Comprehension (B) sup O. Expression (B) sup - Social Cognition P. Social Interaction Peter Q. Problem Solving sup R. Memory sup - Endurance Fair - Balance Fair - Safety Awareness Fair QI SCORES: - Self-Care A. Eating 03-Partial/moderate assistance B. Oral hygiene 03-Partial/moderate assistance C. Toileting hygiene 03-Partial/moderate assistance E. Shower/bathe self 88-Not attempted due to medical condition or safety concerns F. Upper body dressing 03-Partial/moderate assistance G. Lower body dressing 03-Partial/moderate assistance H. Putting on/taking off footwear 88-Not attempted due to medical condition or safety concerns - Mobility A. Roll left and right 04-Supervision or touching assistance B. Sit to lying 04-Supervision or touching assistance C. Lying to sitting on side of bed 04-Supervision or touching assistance D. Sit to stand 04-Supervision or touching assistance E. Chair/juh-mg-saust transfer 04-Supervision or touching assistance F. Toilet transfer 03-Partial/moderate assistance G. Car transfer 88-Not attempted due to medical condition or safety concerns I. Walk 10 feet 04-Supervision or touching assistance J. Walk 50 feet with two turns 04-Supervision or touching assistance K. Walk 150 feet 04-Supervision or touching assistance L. Walking 10 feet on uneven surfaces 88-Not attempted due to medical condition or safety concerns M. 1 step (curb) 88-Not attempted due to medical condition or safety concerns N. 4 steps 88-Not attempted due to medical condition or safety concerns O. 12 steps 88-Not attempted due to medical condition or safety concerns P. Picking up object 88-Not attempted due to medical condition or safety concerns R. Wheel 50 feet with two turns 88-Not attempted due to medical condition or safety concerns S. Wheel 150 feet 88-Not attempted due to medical condition or safety concerns - Bladder and Bowel Bladder continence Bowel continence - Endurance Fair - Balance Fair - Safety Awareness Fair CURRENT FUNC. DEFICITS: Self-Care, Mobility, Endurance, Balance, and Safety Awareness SIGNATURE PANEL: ([employer]INTEND[employer])
[2021-04-29] MEDS: MELATONIN 5 MG TABLET PO PRN (20:39)
[2021-04-29] MEDS: ATORVASTATIN 80 MG PO SCH (20:44)
[2021-04-30] MEDS: ALBUTEROL 2.5 MG/3 ML NEB SOL NEB SCH ×4 (02:00→19:28)
[2021-04-30] MEDS: ACETAMINOPHEN 325 MG TABLET PO PRN ×4 (03:10→22:12)
[2021-04-30 04:17] LABS: Hematocrit 34.3 % (39.6-49.0); Lymphocytes % 26.4 % (15.3-44.8); MPV 8.7 fL (7.6-11.3); RBC Red Blood Cell Count 3.94 M/uL (4.33-5.43)
[2021-04-30 04:20] LABS: BUN Blood Urea Nitrogen 48 mg/dL (7-18); Bicarbonate 24 mmol/L (21-32); Glucose Level 85 mg/dL (74-106); Sodium Level 138 mmol/L (136-145)
[2021-04-30 04:25] LABS: C-Reactive Protein < 2.90 mg/L (<3.00)
[2021-04-30 04:26] LABS: Potassium 5.8 mmol/L (3.5-5.1)
[2021-04-30 06:13] LABS: Potassium 5.6 mmol/L (3.5-5.1)
[2021-04-30] MEDS ORDERED: SOD POLYSTYREN SUL 15 GM/60 ML UCUP PO ONE ×2 (06:18→14:21)
[2021-04-30] MEDS: INSULIN -REGULAR HUMAN 50 UNIT/0.5 ML ML SQ SCH ×4 (07:30→21:00)
--- NOTE | 2021-04-30 08:16 | PN ---
Date of Progress Note: 04/29/2021 Subjective: The patient was seen for followup. He was on the COVID unit, sleeping in the recliner, easily arousable, not in any distress. Denies any complaints overnight. Objective: Vital Signs: Reviewed. HEENT: Unremarkable. Lungs: Clear to auscultation. Heart: Sounds normal. Abdomen: Soft. Bowel sounds normal. No guarding, rigidity, tenderness, or distention. Extremities: Bilateral grade 1 to grade 2 pedal edema. Laboratory Data: Chest x-ray today shows mild bilateral pulmonary opacities. Impression: 1.COVID-19 infection. 2.Stroke. 3.Hypertension. 4.Chronic kidney disease, stage 3B. 5.Hyperlipidemia. Plan: We will continue current anticoagulation therapy, which is Eliquis that he is on. Continue cu rrent antihypertensive medications, statin therapy. Physical Therapy to continue to work with the joni arrington for his stroke, and I have requested consultation from Dr. Farr from Pulmonary Service for this COVID-19 infection. We will repeat blood work tomorrow. I will see him tomorrow morning for stanley cardenas. ANNA/MODL Voice ID: [id number] Report ID: [id number]
--- NOTE | 2021-04-30 08:22 | PN ---
Date of Progress Note: 04/28/2021 Disposition: The patient was transferred to medical floor to COVID unit. Interval History: A 70-year-old male patient who was admitted to the hospital last week with stroke causing left upper extremity weakness and some slurred speech. Please see dictated H and P from medical floor for more details and information. The patient's CAT scan was negative for any acute changes, but MRI of the brain picked up the stroke that was suspected clinically. The patient's initial COVID test was negative and he was admitted to medical floor this week on Monday for inpatient rehab therapy. The patient's hospital course on rehab remained unremarkable. He has chronic cough for many many years, which has remained unchanged and also has lot of problem with restless legs syndrome, so at home instead of sleeping in bed he mostly sleeps in a recliner. No other new complaints or problems reported on the rehab floor, but today repeat COVID test was done on rehab floor as a part of routine test protocol and that test came back positive. So he was contacted and decision was made to transfer him to COVID Unit on the 4th floor. Physical Examination: HEENT: Unremarkable. Lungs: Clear to auscultation. Heart: Heart sounds normal. Abdomen: Soft, bowel sounds normal. No guarding, rigidity, tenderness, or distention. Extremities: Bilateral grade 1 pedal edema. Impression: 1. Stroke. 2. Hypertension. 3. Chronic systolic heart failure. 4. Hyperlipidemia. 5. Chronic kidney disease. 6. COVID-19 infection. ANNA/MODL Voice ID: [id number] Report ID: [id number] [facility]ITALRobert
[2021-04-30] MEDS: MINOCYCLINE HCL 50 MG CAP PO SCH (08:29)
[2021-04-30] MEDS: ENTRESTO PO SCH ×2 (08:30→21:00)
[2021-04-30] MEDS: HOME MED 1 EA UNK (Linagliptin [Tradjenta] 5 MG) PO SCH (08:30)
[2021-04-30] MEDS: POTASSIUM CHLORIDE 20 MEQ PO SCH (08:31)
[2021-04-30] MEDS: COREG 6.25 MG PO SCH ×2 (08:31→21:00)
[2021-04-30] MEDS: MONTELUKAST 10 MG PO SCH (08:32)
[2021-04-30] MEDS: LASIX 80 MG PO SCH ×2 (08:33→16:54)
[2021-04-30] MEDS: ROPINIROLE 1 MG PO SCH ×2 (08:33→21:00)
[2021-04-30] MEDS: PLAVIX 75 MG PO SCH (08:34)
[2021-04-30] MEDS: ELIQUIS 2.5 MG PO SCH ×2 (08:35→21:00)
[2021-04-30] MEDS: VALACYCLOVIR 500 MG PO SCH (08:36)
[2021-04-30] MEDS: MUPIROCIN 2% OINT 22GM TUBE TOP SCH ×2 (08:40→21:00)
--- NOTE | 2021-04-30 10:27 | P.RH.PN ---
Estimated Length of Stay: 11 Expected Discharge Date: 05/07/21 Discharge Disposition Plan: Home Family Support: Yes Skilled Nursing Goal: Mobility, Transfers, Self Care Vital Signs: Last Vital Signs Temp 97.8 F 04/29/21 20:00 Pulse 67 04/29/21 20:00 Resp 17 04/29/21 20:00 BP 110/54 L 04/29/21 20:00 Pulse Ox 97 04/29/21 20:00 Laboratory: Laboratory Last Values WBC 4.00 K/uL (4.3-10.9) L D 04/30/21 03:07 RBC 3.94 M/uL (4.33-5.43) L 04/30/21 03:07 Hgb 10.9 g/dL (13.6-17.9) L 04/30/21 03:07 Hct 34.3 % (39.6-49.0) L 04/30/21 03:07 MCV 87.2 fL (80-100) 04/30/21 03:07 MCH 27.8 pg (27.0-35.0) 04/30/21 03:07 MCHC 31.9 g/dL (32.0-36.0) L 04/30/21 03:07 RDW 16.3 % (12.1-15.2) H 04/30/21 03:07 Plt Count 126 K/uL (152-406) L 04/30/21 03:07 MPV 8.7 fL (7.6-11.3) D 04/30/21 03:07 Neutrophils % 32.7 % (41.7-73.7) L 04/30/21 03:07 Lymphocytes % 26.4 % (15.3-44.8) 04/30/21 03:07 Monocytes % 35.5 % (3.3-12.3) H 04/30/21 03:07 Eosinophils % 4.9 % (0-4.4) H 04/30/21 03:07 Basophils % 0.5 % (0-1.3) 04/30/21 03:07 Absolute Neutrophils 1.3 K/uL (1.8-8.0) L 04/30/21 03:07 Segmented Neutrophils 49 % (40-80) 04/27/21 04:13 Band Neutrophils 2 % (0-1) H 04/27/21 04:13 Absolute Lymphocytes 1.0 K/uL (0.7-4.9) 04/30/21 03:07 Lymphocytes 19 % (15-42) 04/27/21 04:13 Monocytes 25 % (0-10) H 04/27/21 04:13 Absolute Monocytes 1.4 K/uL (0.1-1.3) H 04/30/21 03:07 Eosinophils 5 % (0-3) H 04/27/21 04:13 Absolute Eosinophils 0.2 K/uL (0-0.5) 04/30/21 03:07 Absolute Basophils 0.0 K/uL (0-0.5) 04/30/21 03:07 Platelet Estimate Decr 04/27/21 04:13 Morphology Comment Not seen (NOT SEEN) 04/27/21 04:13 Sodium 137 mmol/L (136-145) 04/30/21 05:43 Potassium 5.6 mmol/L (3.5-5.1) H* 04/30/21 05:43 Chloride 108 mmol/L (98-107) H 04/30/21 05:43 Carbon Dioxide 24 mmol/L (21-32) 04/30/21 05:43 BUN 49 mg/dL (7-18) H 04/30/21 05:43 Creatinine 2.54 mg/dL (0.55-1.3) H 04/30/21 05:43 Estimated GFR 30 mL/min (=/>90) L 04/30/21 05:43 Glucose 85 mg/dL (74-106) 04/30/21 05:43 POC Glucose 76 mg/dL (65-120) 04/30/21 08:36 Calcium 9.2 mg/dL (8.5-10.1) 04/30/21 05:43 Magnesium 2.4 04/27/21 04:13 C-Reactive Protein < 2.90 mg/L (<3.00) 04/30/21 03:07 Albumin 3.2 g/dL (3.4-5.0) L 04/27/21 04:13 Prealbumin 27.2 mg/dL (20-40) 04/27/21 04:13 Urine Color Yellow (Yellow) 04/26/21 20:00 Urine Appearance Clear (Clear) 04/26/21 20:00 Urine pH 5.5 (5.0-7.0) 04/26/21 20:00 Ur Specific [place] 1.010 (1.005-1.030) 04/26/21 20:00 Glucose (UA)(Auto) Negative (Negative) 04/26/21 20:00 Urine Ketones Negative (Negative) 04/26/21 20:00 Urine Blood Negative (Negative) 04/26/21 20:00 Urine Nitrite Negative (Negative) 04/26/21 20:00 Urine Bilirubin Negative (Negative) 04/26/21 20:00 Urine Urobilinogen 0.2 mg/dL (0.2-1.0) 04/26/21 20:00 Ur Leukocyte Esterase Negative (Negative) 04/26/21 20:00 Urine RBC None seen /HPF (NONE SEEN) 04/26/21 20:00 Urine WBC None seen /HPF (<5) 04/26/21 20:00 Ur Squamous Epith Cells <5 /HPF (NONE SEEN) 04/26/21 20:00 Urine Bacteria <20 /HPF (NONE SEEN) 04/26/21 20:00 Urine Culture Reflexed Not needed 04/26/21 20:00 Urine Total Protein Negative (Negative) 04/26/21 20:00 SARS-CoV-2 Rap RNA(RT-PCR) Positive (NEGATIVE) A 04/28/21 05:25 Weight: 210 lb Wound Present: Yes Closed Surgical Incision Present: No Negative Pressure Wound Therapy Present: No Physician Update: Chest x- ray shows viral infection. Min assistance with transfers. Walking 270' with minimum assistance. Standby with grooming and upper body dressing. Contact guard for transfers. Max assistance for foot wear. He tested positive for covid-19 on 04-28-21. Functional Improvement: Patient participates well w/ therapy, and currently is Min A w/ transfers and gait tx. w/ RW. Patient presents w/ good attitude toward therapy. Summary: Patient's care plan and nursing home goals have been reviewed and revised as necessary. Please see the Rehabilitation Signature page for all necessary signatures.
[2021-04-30] MEDS: BUDESONIDE 0.5 MG/2 ML NEB NEB SCH ×2 (11:57→19:28)
--- NOTE | 2021-04-30 12:02 | P.CNS ---
Date of Consult: 04/30/21 Reason for Consult: Chronic cough Chief Complaint: Cough positive for coronavirus History of Present Illness: Patient is 70 years of age was transferred from the rehab unit he was admitted with a left-sided stroke some expressive dysphagia tested positive for Covid he has had a severe persistent cough for 3 years denies any fever and chills he quit smoking a long time ago Allergies povidone-iodine [From Betadine] Allergy (Mild, Verified 04/26/21 15:22) Rash Home Medications: Apixaban [Eliquis *] 2.5 mg PO BID 04/26/21 Atorvastatin Calcium [Lipitor] 40 mg PO BEDTIME 04/26/21 Clopidogrel Bisulfate [Plavix*] 75 mg PO DAILY 04/26/21 Furosemide [Lasix] 40 mg PO BID 04/26/21 Levothyroxine [Synthroid*] 0.025 mg PO 0630 04/26/21 Linagliptin [Tradjenta] 5 mg PO BREAKFAST 04/26/21 Minocycline HCl 100 mg PO BID 04/26/21 Montelukast [Singulair*] 10 mg PO DAILY 04/26/21 Mupirocin Oint [Bactroban 2% Ointment*] 1 appl TOP BID 04/26/21 Potassium Oral Tab [Klor-Con 10 mEq Tab*] 10 meq PO DAILY 04/26/21 Ropinirole HCl [Requip*] 1 mg PO BID 04/26/21 Sacubitril/Valsartan [Entresto 24 mg-26 mg Tablet] 1 tab PO BID 04/26/21 Smz./Tmp. [Bactrim Ds 800 MG/160 MG*] 1 tab PO BID 04/26/21 Valacyclovir [Valtrex*] 500 mg PO DAILY 04/26/21 carvediloL [Coreg*] 6.25 mg PO BID 04/26/21 - Past Medical/Surgical History Diabetic: No -: DM -: COPD -: Hx [place] -: Hx Diffuse Large B Cell Lymphoma (DLBCL) -: Hyperlipidemia -: HTN -: Hypothyroidism -: Osteoarthritis -: drop left ankle -: knee replacement Left -: open heart surgery -: left hip repLACEMENT -: METAL PLATED IN RIGHT ARM - Social History Alcohol use: No CD- Drugs: No Caffeine use: Yes Place of Residence: Home Review of Systems 10-point ROS is otherwise unremarkable General: Weakness Respiratory: Cough Cardiovascular: Edema (Lower extremity edema) Physical Examination Temp Pulse Resp BP Pulse Ox 97.2 F 61 14 120/69 95 04/30/21 08:00 04/30/21 08:00 04/30/21 08:00 04/30/21 08:00 04/30/21 08:00 General: Alert, In no apparent distress, Oriented x3 Neck: Supple Respiratory: Clear to auscultation bilaterally Cardiovascular: No edema, Regular rate/rhythm Gastrointestinal: Normal bowel sounds, Soft and benign Laboratory Data (last 24 hrs) 04/30/21 05:43: Sodium 137, Potassium 5.6 H*, BUN 49 H, Creatinine 2.54 H, Glucose 85 04/30/21 03:07: Sodium 138, Potassium 5.8 H*, BUN 48 H, Creatinine 2.56 H, Glucose 85 04/30/21 03:07: WBC 4.00 L D, Hgb 10.9 L, Hct 34.3 L, Plt Count 126 L - Problems (1) Chronic cough Current Visit: Yes Status: Acute Plan: Patient is 70 years of age metabolic syndrome recently diagnosed with coronavirus infection has a chronic cough was transferred from the rehab floor he has some lower extremity edema which is chronic I suspect he has congestive heart failure most likely diastolic dysfunction chest x-ray is clear Boyd's and nebulized Pulmicort ipratropium and acid reflux therapy patient has chronic renal failure is little hyperkalemic
[2021-04-30] MEDS: IPRATROPIUM BROM 0.5MG/2.5ML NEB SCH ×2 (13:55→19:28)
[2021-04-30 14:17] LABS: Potassium 5.2 mmol/L (3.5-5.1)
[2021-04-30] MEDS: PANTOPRAZOLE 40MG TABLET PO SCH (16:50)
--- NOTE | 2021-04-30 20:52 | PN ---
Date of Progress Note: 04/30/2021 Subjective: Patient was seen this morning for followup. No new complaints or problems reported by t he patient except his restless leg problem and leg cramps related to that. Objective: Vital Signs: Reviewed. HEENT: Examination unremarkable. Lungs: Clear to auscultation. Heart: Sounds normal. Abdomen: Soft. Bowel sounds normal. No guarding, rigidity, tenderness, or distention. Extremities: Bilateral grade 1 pedal edema. Laboratory Data: White count 4, hemoglobin 10.9, platelets 126. This morning; sodium 138, potassium 5.8, chloride 109, bicarb 24, BUN 48, creatinine 2.56. Repeat potassium was 5.6, so patient was giv en Kayexalate 30 g p.o. x1 dose. This afternoon; repeat sodium 136, potassium 5.2, chloride 106, bic arb 23, BUN 46, creatinine 2.48, glucose 118. Impression: 1.COVID-19 infection. 2.COVID-19 pneumonia. 3.Acute respiratory failure with hypoxia. 4.Hyperkalemia. 5.Acute kidney injury. Plan: We will go ahead and discontinue Bactrim that the patient was taking as that could definitely contribute to worsening of the renal function associated with hyperkalemia that we are saying. Patie nt received second dose of Kayexalate, this afternoon, and since his potassium is high, we will disco ntinue his potassium replacement therapy. He is on ropinirole 1 mg 2 times a day, and I will change that to 3 times a day. Details were discussed with Dr. Farr from Pulmonary, who was consulted fo r COVID infection. ANNA/MODL Voice ID: [id number] Report ID: [id number]
[2021-04-30] MEDS: ATORVASTATIN 80 MG PO SCH (21:00)
[2021-04-30] MEDS: MELATONIN 5 MG TABLET PO PRN (22:12)
[2021-05-01] MEDS: IPRATROPIUM BROM 0.5MG/2.5ML NEB SCH ×4 (01:55→19:22)
[2021-05-01] MEDS: ALBUTEROL 2.5 MG/3 ML NEB SOL NEB SCH ×4 (01:55→19:22)
[2021-05-01] MEDS: INSULIN -REGULAR HUMAN 50 UNIT/0.5 ML ML SQ SCH ×4 (07:30→21:00)
[2021-05-01] MEDS: BUDESONIDE 0.5 MG/2 ML NEB NEB SCH ×2 (07:56→19:22)
[2021-05-01] MEDS: PANTOPRAZOLE 40MG TABLET PO SCH ×2 (08:33→16:21)
[2021-05-01] MEDS: LASIX 80 MG PO SCH ×2 (08:34→16:27)
[2021-05-01] MEDS: PLAVIX 75 MG PO SCH (08:35)
[2021-05-01] MEDS: ELIQUIS 2.5 MG PO SCH ×2 (08:35→21:39)
[2021-05-01] MEDS: VALACYCLOVIR 500 MG PO SCH (08:36)
[2021-05-01] MEDS: MUPIROCIN 2% OINT 22GM TUBE TOP SCH ×2 (08:37→21:00)
[2021-05-01] MEDS: ENTRESTO PO SCH ×3 (08:37→21:38)
[2021-05-01] MEDS: HOME MED 1 EA UNK (Linagliptin [Tradjenta] 5 MG) PO SCH (08:37)
[2021-05-01] MEDS: MONTELUKAST 10 MG PO SCH (08:38)
[2021-05-01] MEDS: ROPINIROLE 1 MG PO SCH ×3 (08:41→21:39)
[2021-05-01] MEDS: COREG 6.25 MG PO SCH ×2 (09:00→21:00)
[2021-05-01] MEDS ORDERED: MONTELUKAST 10 MG TAB PO SCH (09:00)
[2021-05-01] MEDS ORDERED: HOME MED 1 EA UNK PO SCH (09:00)
--- NOTE | 2021-05-01 09:16 | RAD REPORT ---
EXAM DESCRIPTION: No Single View05/01/2021 7:12 am CLINICAL HISTORY: Chest pain COMPARISON: April 29, 2021 FINDINGS: The lungs appear clear of acute infiltrate. The heart is remains enlarged. Postsurgical changes involve the chest IMPRESSION: No acute abnormalities displayed
--- NOTE | 2021-05-01 11:12 | P.PN ---
Subjective Date of Service: 05/01/21 Chief Complaint: Cough positive for coronavirus Subjective: Improving (Patient is improving his cough is better) Review of Systems General: Weakness Respiratory: Cough, Shortness of Breath Physical Examination - Vital Signs Temperature: 98.5 F Blood Pressure: 106/63 Pulse: 72 Respirations: 14 Pulse Ox (%): 98 - Physical Exam General: Alert, In no apparent distress, Oriented x3 Respiratory: Clear to auscultation bilaterally, Normal air movement Cardiovascular: Edema - Studies Laboratory Data (last 24 hrs) 04/30/21 13:39: Sodium 136, Potassium 5.2 H, BUN 46 H, Creatinine 2.48 H, Glucose 118 H Assessment And Plan - Current Problems (Diagnosis) (1) Chronic cough Current Visit: Yes Status: Acute Plan: Patient status his cough is improved oxygenation satisfactory patient does have lower extremity edema continue with nebulized genocide ipratropium and acid reflux therapy for at least 2 to 3 months can be switched over to a triple inhaler or Advair with Spiriva oxygenation is normal at room air continue with triple inhalers and PPI for at least 2 to 3 months
[2021-05-01] MEDS ORDERED: FUROSEMIDE 40 MG/4 ML VIAL IV ONE (13:00)
[2021-05-01 14:55] LABS: Potassium 4.7 mmol/L (3.5-5.1)
[2021-05-01] MEDS: ACETAMINOPHEN 325 MG TABLET PO PRN ×2 (16:26→21:41)
--- NOTE | 2021-05-01 19:36 | R.PN ---
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 SUBJECTIVE: Pt denied any depression. Pt denied any Shortness of Breath. He tested positive for covid-19 and is on the 4th floor to continue aggressive rehabilitation. WBC 5.0, Hgb 10.7, glucose 81 to 95, [employer] Development Specialist Manager 2.48, prealbumin 27.2. He ambulated 1200' with contact guard assistance using a rolling walker. COVID-19 was positive on 04/28/21. Chest X-ray: bilateral pulmonary opacities likely secondary to viral infection. VITAL SIGNS Temperature: 97.2 F SBP/DBP: 119/63 Pulse: 71 Resp: 16 MEDICATION ALLERGIES: Iodine Povidone ENVIRONMENTAL ALLERGIES: None Known - Substance Allergies None Known - Other Allergies None Known NURSING: - Shower allowing shower - Bladder care per protocol - Skin care per protocol PRECAUTIONS: - Weight Bearing Precaution WBAT left LE ACTIVITIES OOB only with supervision THERAPIES: - Dietary and Nutrition Adequate Nutrition. Nutritional Education. Nutritional Supplements. - Occupational Therapy Cognitive Retraining. Evaluate and Treat. Transfer Training. ADL Training. Adaptive Equipment. UE Str engthening. Household Tasks. Patient/Family Education. Safety Awareness. Visual Perceptual Training. - Speech Therapy Cognitive Training. Expressive Language Skills. Memory Strategies. Receptive Language Skills. Speech Intelligibility Training. - Physical Therapy Gait Training. Evaluate and Treat. Balance Training. LE Strengthening. Transfer Training. Mobility Tr aining. Safety Awareness. Patient/Family Education. PHYSICAL EXAM - Gen Alert and awake Lying in bed No apparent distress Oriented to: person, time, and place - Skin No breakdowns No abnormalities - Eyes No abnormalities - ENMT No abnormalities - Neck No abnormalities - CVS RRR - Chest No abnormalities - Abd Obese, soft, nontender - GI nondistended Deferred - No abnormalities - Ext Moderate edema in both lower extremities. - MSK 4+/5 weakness in left upper and lower extremity - Neuro 4/5 strength left upper and lower extremities. - Psych No abnormalities ASSESSMENT: Pt. is a 70 yo Right-handed male.On 04/21/2021 Pt. presented to [facility] with sudden o nset of left-side weakness.On 04/21/2021 he was admitted to [facility] with diagnosis [facility].His impairment category is Stroke 01 - Left Body (Right Brain) (01.1).Pre-morbidly, Pt. was ind ependent/mod-I in Locomotion, Safety Awareness, Social Cognition, and Balance; and he had good Transf ers Control, Self-Care, Sphincter Control, Communication, and Endurance.Currently, he has deficits of Locomotion, Social Cognition, Safety Awareness, Balance, Sphincter Control, Communication, Transfers Control, Self-Care, and Endurance.Pt. is now referred to [facility] for acute in-patient rehabilitation in order to maximize patient's functional independence in activities of da zulma living, strength, ROM, and mobility.- Rehab Goal Patient has realistic goal of being discharged at assistance level 7-Ind to reside at Home with Pt s elf. MDM/PLAN: - Physical Therapy Gait dysfunction - to improve, our physical therapists will perform initial evaluation of pt's statu s upon admission and devise an individualized program for Gait Training, and Wheel Chair mobility Inability to transfer - to improve, our physical therapists will perform initial evaluation of pt's status upon admission and devise an individualized program for Bed mobility Need for home safety evaluation - to improve, our physical therapists will perform initial evaluatio n of pt's status upon admission and devise an individualized program for Home Evaluation Need in caregiver upon discharge - to improve, our physical therapists will perform initial evaluati on of pt's status upon admission and devise an individualized program for Caregiver Training New precaution - to improve, our physical therapists will perform initial evaluation of pt's status upon admission and devise an individualized program for Patient precaution education Edema - to improve, our physical therapists will perform initial evaluation of pt's status upon admi ssion and devise an individualized program for Elevation Training, and Lymphedema Therapy Poor balance - to improve, our physical therapists will perform initial evaluation of pt's status up on admission and devise an individualized program for Balance Training Poor endurance - to improve, our physical therapists will perform initial evaluation of pt's status upon admission and devise an individualized program for Endurance Training Weakness - to improve, our physical therapists will perform initial evaluation of pt's status upon a dmission and devise an individualized program for Aquatic Therapy, Neuromuscular Reeducation, and Str engthening Achieving independence - to improve, our physical therapists will perform initial evaluation of pt's status upon admission and devise an individualized program for Community Reintegration Activities - Occupational Therapy ADL deficits - to improve, our occupation therapists will perform initial evaluation of pt's status upon admission and devise an individualized program for Bathing, Bed mobility, Community Reintegratio n, Cooking, Dressing, Eating, Fine Motor Skills, Grooming, Homemaking, Kitchen Mobility, Laundry, Pat ient Education, Safety Awareness, Splinting - Positioning, Transfers(Toilet, Tub, Shower), and Wheel Chair Management Cognitive deficits - to improve, our occupation therapists will perform initial evaluation of pt's s tatus upon admission and devise an individualized program for Cognition - orientation Need for care asst - to improve, our occupation therapists will perform initial evaluation of pt's status upon admission and devise an individualized program for Caregiver Training Weakness - to improve, our occupation therapists will perform initial evaluation of pt's status upon admission and devise an individualized program for Aquatic Therapy, Balance, Endurance, UE ROM, and UE strengthening - Other See attached MAR (Medication Administration Record) - Diet Type Continue Regular - Diet - Liquid Texture Continue Regular - Tube Feed Continue N/A - Bladder care per protocol - Weight Bearing Precaution WBAT left LE - Skin care per protocol - Diet - Solid Texture Continue Regular Continue Mechanical Soft Bite Sized-6 (Chopped) - Shower allowing shower for Dementia, TBI, Stroke, or others FUNCTIONAL STATUS: UPDATED AT WEEKLY TEAM CONFERENCE - Bladder Same accident frequency: 7-Ind - No accidents in the past 7 days - Bowel Same accident frequency: 7-Ind - No accidents in the past 7 days - Walking Same score based on distance walked: 0(N/A) Same score based on distance walked: 3(>=150ft) - Wheelchair Same score based on distance traveled: 0(N/A) FUNCTIONAL STATUS: - Self-Care A. Eating Ind B. Grooming Peter C. Bathing sup D. Dressing - Upper sup E. Dressing - Lower Michael F. Toileting Michael - Sphincter Control G. Bladder control Peter H. Bowel control Peter - Transfers Control I. Bed/Chair/Wheelchair sup J. Toilet sup K. Tub/Shower Michael - Locomotion L. Walk/Wheelchair (B) Michael M. Stairs modA - Communication N. Comprehension (B) sup O. Expression (B) sup - Social Cognition P. Social Interaction Peter Q. Problem Solving sup R. Memory sup - Endurance Fair - Balance Fair - Safety Awareness Fair QI SCORES: - Self-Care A. Eating 03-Partial/moderate assistance B. Oral hygiene 03-Partial/moderate assistance C. Toileting hygiene 03-Partial/moderate assistance E. Shower/bathe self 88-Not attempted due to medical condition or safety concerns F. Upper body dressing 03-Partial/moderate assistance G. Lower body dressing 03-Partial/moderate assistance H. Putting on/taking off footwear 88-Not attempted due to medical condition or safety concerns - Mobility A. Roll left and right 04-Supervision or touching assistance B. Sit to lying 04-Supervision or touching assistance C. Lying to sitting on side of bed 04-Supervision or touching assistance D. Sit to stand 04-Supervision or touching assistance E. Chair/[id number] transfer 04-Supervision or touching assistance F. Toilet transfer 03-Partial/moderate assistance G. Car transfer 88-Not attempted due to medical condition or safety concerns I. Walk 10 feet 04-Supervision or touching assistance J. Walk 50 feet with two turns 04-Supervision or touching assistance K. Walk 150 feet 04-Supervision or touching assistance L. Walking 10 feet on uneven surfaces 88-Not attempted due to medical condition or safety concerns M. 1 step (curb) 88-Not attempted due to medical condition or safety concerns N. 4 steps 88-Not attempted due to medical condition or safety concerns O. 12 steps 88-Not attempted due to medical condition or safety concerns P. Picking up object 88-Not attempted due to medical condition or safety concerns R. Wheel 50 feet with two turns 88-Not attempted due to medical condition or safety concerns S. Wheel 150 feet 88-Not attempted due to medical condition or safety concerns - Bladder and Bowel Bladder continence Bowel continence - Endurance Fair - Balance Fair - Safety Awareness Fair CURRENT [facility]. 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
[2021-05-01] MEDS: ATORVASTATIN 80 MG PO SCH (21:38)
[2021-05-01] MEDS: MELATONIN 5 MG TABLET PO PRN (21:41)
--- NOTE | 2021-05-01 23:40 | PN ---
Date of Progress Note: 05/01/2021 Subjective: The patient was seen this morning for followup. He was sitting in the chair, feeling be tter today compared to yesterday. Not using oxygen anymore and maintaining adequate oxygenation on r oom air. Objective: Vital Signs: Reviewed. HEENT: Examination unremarkable. Lungs: Clear to auscultation. Heart: Heart sounds normal. Abdomen: Soft. Bowel sounds normal. No guarding, rigidity, tenderness, or distention. Extremities: Bilateral leg edema present. Laboratory Data: Chem-7, results reviewed. Chest x-ray shows no acute changes. Impression: 1.COVID-19 infection. 2.COVID-19 pneumonia, resolved. 3.Acute respiratory failure with hypoxia, resolved. 4.Chronic systolic heart failure. 5.Hypertension. 6.Hyperlipidemia. 7.Chronic kidney disease. Plan: We will go ahead and continue current medications and continue current anticoagulant therapy. We will continue to follow up with Dr. Farr, and I will see him tomorrow for followup. Continue physical therapy under guidance of Dr. Hand. ANNA/MODL Voice ID: [id number] Report ID: [id number]
[2021-05-02] MEDS: ALBUTEROL 2.5 MG/3 ML NEB SOL NEB SCH ×4 (03:18→20:12)
[2021-05-02] MEDS: IPRATROPIUM BROM 0.5MG/2.5ML NEB SCH ×4 (03:18→20:12)
[2021-05-02] MEDS: INSULIN -REGULAR HUMAN 50 UNIT/0.5 ML ML SQ SCH ×4 (07:30→21:00)
[2021-05-02] MEDS: BUDESONIDE 0.5 MG/2 ML NEB NEB SCH ×2 (07:40→20:25)
[2021-05-02] MEDS: ACETAMINOPHEN 325 MG TABLET PO PRN ×2 (08:19→22:09)
[2021-05-02] MEDS: PLAVIX 75 MG PO SCH (08:20)
[2021-05-02] MEDS: ELIQUIS 2.5 MG PO SCH ×2 (08:21→22:13)
[2021-05-02] MEDS: COREG 6.25 MG PO SCH ×2 (08:21→22:14)
[2021-05-02] MEDS: VALACYCLOVIR 500 MG PO SCH (08:21)
[2021-05-02] MEDS: MONTELUKAST 10 MG PO SCH (08:21)
[2021-05-02] MEDS: ENTRESTO PO SCH ×2 (08:22→22:11)
[2021-05-02] MEDS: ROPINIROLE 1 MG PO SCH ×3 (08:22→22:13)
[2021-05-02] MEDS: HOME MED 1 EA UNK (Linagliptin [Tradjenta] 5 MG) PO SCH (08:23)
[2021-05-02] MEDS: LASIX 80 MG PO SCH ×3 (08:23→22:12)
[2021-05-02] MEDS: PANTOPRAZOLE 40MG TABLET PO SCH ×2 (08:24→16:34)
[2021-05-02] MEDS: MUPIROCIN 2% OINT 22GM TUBE TOP SCH ×2 (08:25→22:17)
--- NOTE | 2021-05-02 12:07 | PN ---
Date of Progress Note: 05/02/2021 Subjective: The patient was seen this morning for followup. He was sitting in chair, feeling better . Cough is better. Denies any shortness of breath. Objective: Vital Signs: Reviewed. HEENT: Unremarkable. Lungs: Clear to auscultation. Heart: Sounds normal. Abdomen: Soft. Bowel sounds normal. No guarding, rigidity, tenderness, or distention. Extremities: Bilateral leg edema present, slightly better today than yesterday. Impression: 1.Chronic systolic congestive heart failure. 2.COVID-19 infection. 3.Stroke. 4.Hypertension. Plan: We will go ahead and continue current management. The patient is maintaining adequate oxygena tion on room air, does not require any supplemental oxygen. We will continue his current medications , Physical Therapy to continue to work with the patient and we will give additional dose of Lasix 40 mg IV today. He did diurese well yesterday after IV Lasix dose. We will continue his oral diuretic therapy. I will see him tomorrow for followup. ANNA/MODL Voice ID: [id number] Report ID: [id number]
[2021-05-02] MEDS ORDERED: FUROSEMIDE 40 MG/4 ML VIAL IV ONE (15:30)
[2021-05-02] MEDS: MELATONIN 5 MG TABLET PO PRN (22:09)
[2021-05-02] MEDS: ATORVASTATIN 80 MG PO SCH (22:11)
[2021-05-03] MEDS: ALBUTEROL 2.5 MG/3 ML NEB SOL NEB SCH ×4 (02:06→20:30)
[2021-05-03] MEDS: IPRATROPIUM BROM 0.5MG/2.5ML NEB SCH ×4 (02:06→20:30)
[2021-05-03 03:53] LABS: Absolute Lymphocytes (CBC) 1.2 K/uL (0.7-4.9); Hematocrit 31.9 % (39.6-49.0); MPV 7.9 fL (7.6-11.3); RBC Red Blood Cell Count 3.67 M/uL (4.33-5.43)
[2021-05-03 04:21] LABS: Potassium 4.2 mmol/L (3.5-5.1)
[2021-05-03 04:52] LABS: Blood Morphology Comment NOT SEEN (NOT SEEN); Platelet Estimate ADEQ
[2021-05-03] MEDS: INSULIN -REGULAR HUMAN 50 UNIT/0.5 ML ML SQ SCH ×4 (07:30→20:49)
[2021-05-03] MEDS: HOME MED 1 EA UNK (Linagliptin [Tradjenta] 5 MG) PO SCH (08:01)
[2021-05-03] MEDS: ELIQUIS 2.5 MG PO SCH ×2 (08:02→20:48)
[2021-05-03] MEDS: ENTRESTO PO SCH ×2 (08:03→20:49)
[2021-05-03] MEDS: ROPINIROLE 1 MG PO SCH ×3 (08:05→20:46)
[2021-05-03] MEDS: VALACYCLOVIR 500 MG PO SCH (08:05)
[2021-05-03] MEDS: MONTELUKAST 10 MG PO SCH (08:06)
[2021-05-03] MEDS: COREG 6.25 MG PO SCH ×2 (08:07→20:48)
[2021-05-03] MEDS: PLAVIX 75 MG PO SCH (08:08)
[2021-05-03] MEDS: PANTOPRAZOLE 40MG TABLET PO SCH ×2 (08:17→17:18)
[2021-05-03] MEDS: BUDESONIDE 0.5 MG/2 ML NEB NEB SCH ×2 (08:30→20:40)
[2021-05-03] MEDS: MUPIROCIN 2% OINT 22GM TUBE TOP SCH ×2 (08:54→21:00)
[2021-05-03] MEDS: LASIX 80 MG PO SCH (17:18)
--- NOTE | 2021-05-03 17:26 | R.PN ---
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 SUBJECTIVE: Pt denied any depression. Pt denied any Shortness of Breath. He tested positive for covid-19 and is on the 4th floor to continue aggressive rehabilitation. WBC 4.4, Hgb 10.4, glucose 86 to 99, Shorts Sifter 2.31, prealbumin 27.2. He ambulated 1250' with contact guard assistance using a rolling walker. COVID-19 was positive on 04/28/21. Chest X-ray: bilateral pulmonary opacities likely secondary to viral infection. VITAL SIGNS Temperature: 97.2 F SBP/DBP: 119/63 Pulse: 71 Resp: 16 MEDICATION ALLERGIES: Iodine Povidone ENVIRONMENTAL ALLERGIES: None Known - Substance Allergies None Known - Other Allergies None Known NURSING: - Shower allowing shower - Bladder care per protocol - Skin care per protocol PRECAUTIONS: - Weight Bearing Precaution WBAT left LE ACTIVITIES OOB only with supervision THERAPIES: - Dietary and Nutrition Adequate Nutrition. Nutritional Education. Nutritional Supplements. - Occupational Therapy Cognitive Retraining. Evaluate and Treat. Transfer Training. ADL Training. Adaptive Equipment. UE Str engthening. Household Tasks. Patient/Family Education. Safety Awareness. Visual Perceptual Training. - Speech Therapy Cognitive Training. Expressive Language Skills. Memory Strategies. Receptive Language Skills. Speech Intelligibility Training. - Physical Therapy Gait Training. Evaluate and Treat. Balance Training. LE Strengthening. Transfer Training. Mobility Tr aining. Safety Awareness. Patient/Family Education. PHYSICAL EXAM - Gen Alert and awake Lying in bed No apparent distress Oriented to: person, time, and place - Skin No breakdowns No abnormalities - Eyes No abnormalities - ENMT No abnormalities - Neck No abnormalities - CVS RRR - Chest No abnormalities - Abd Obese, soft, nontender - GI nondistended Deferred - No abnormalities - Ext Moderate edema in both lower extremities. - MSK 4+/5 weakness in left upper and lower extremity - Neuro 4/5 strength left upper and lower extremities. - Psych No abnormalities ASSESSMENT: Pt. is a 70 yo Right-handed male.On 04/21/2021 Pt. presented to [facility] with sudden o nset of left-side weakness.On 04/21/2021 he was admitted to [facility] with diagnosis [facility].His impairment category is Stroke 01 - Left Body (Right Brain) (01.1).Pre-morbidly, Pt. was ind ependent/mod-I in Locomotion, Safety Awareness, Social Cognition, and Balance; and he had good Transf ers Control, Self-Care, Sphincter Control, Communication, and Endurance.Currently, he has deficits of Locomotion, Social Cognition, Safety Awareness, Balance, Sphincter Control, Communication, Transfers Control, Self-Care, and Endurance.Pt. is now referred to [facility] for acute in-patient rehabilitation in order to maximize patient's functional independence in activities of da zulma living, strength, ROM, and mobility.- Rehab Goal Patient has realistic goal of being discharged at assistance level 7-Ind to reside at Home with Pt s elf. MDM/PLAN: - Physical Therapy Gait dysfunction - to improve, our physical therapists will perform initial evaluation of pt's statu s upon admission and devise an individualized program for Gait Training, and Wheel Chair mobility Inability to transfer - to improve, our physical therapists will perform initial evaluation of pt's status upon admission and devise an individualized program for Bed mobility Need for home safety evaluation - to improve, our physical therapists will perform initial evaluatio n of pt's status upon admission and devise an individualized program for Home Evaluation Need in caregiver upon discharge - to improve, our physical therapists will perform initial evaluati on of pt's status upon admission and devise an individualized program for Caregiver Training New precaution - to improve, our physical therapists will perform initial evaluation of pt's status upon admission and devise an individualized program for Patient precaution education Edema - to improve, our physical therapists will perform initial evaluation of pt's status upon admi ssion and devise an individualized program for Elevation Training, and Lymphedema Therapy Poor balance - to improve, our physical therapists will perform initial evaluation of pt's status up on admission and devise an individualized program for Balance Training Poor endurance - to improve, our physical therapists will perform initial evaluation of pt's status upon admission and devise an individualized program for Endurance Training Weakness - to improve, our physical therapists will perform initial evaluation of pt's status upon a dmission and devise an individualized program for Aquatic Therapy, Neuromuscular Reeducation, and Str engthening Achieving independence - to improve, our physical therapists will perform initial evaluation of pt's status upon admission and devise an individualized program for Community Reintegration Activities - Occupational Therapy ADL deficits - to improve, our occupation therapists will perform initial evaluation of pt's status upon admission and devise an individualized program for Bathing, Bed mobility, Community Reintegratio n, Cooking, Dressing, Eating, Fine Motor Skills, Grooming, Homemaking, Kitchen Mobility, Laundry, Pat ient Education, Safety Awareness, Splinting - Positioning, Transfers(Toilet, Tub, Shower), and Wheel Chair Management Cognitive deficits - to improve, our occupation therapists will perform initial evaluation of pt's s tatus upon admission and devise an individualized program for Cognition - orientation Need for home health care provider - to improve, our occupation therapists will perform initial evaluation of pt's status upon admission and devise an individualized program for Caregiver Training Weakness - to improve, our occupation therapists will perform initial evaluation of pt's status upon admission and devise an individualized program for Aquatic Therapy, Balance, Endurance, UE ROM, and UE strengthening - Other See attached MAR (Medication Administration Record) - Diet Type Continue Regular - Diet - Liquid Texture Continue Regular - Tube Feed Continue N/A - Bladder care per protocol - Weight Bearing Precaution WBAT left LE - Skin care per protocol - Diet - Solid Texture Continue Regular Continue Mechanical Soft Bite Sized-6 (Chopped) - Shower allowing shower for Dementia, TBI, Stroke, or others FUNCTIONAL STATUS: UPDATED AT WEEKLY TEAM CONFERENCE - Bladder Same accident frequency: 7-Ind - No accidents in the past 7 days - Bowel Same accident frequency: 7-Ind - No accidents in the past 7 days - Walking Same score based on distance walked: 0(N/A) Same score based on distance walked: 3(>=150ft) - Wheelchair Same score based on distance traveled: 0(N/A) FUNCTIONAL STATUS: - Self-Care A. Eating Ind B. Grooming Peter C. Bathing sup D. Dressing - Upper sup E. Dressing - Lower Michael F. Toileting Michael - Sphincter Control G. Bladder control Peter H. Bowel control Peter - Transfers Control I. Bed/Chair/Wheelchair sup J. Toilet sup K. Tub/Shower Michael - Locomotion L. Walk/Wheelchair (B) Michael M. Stairs modA - Communication N. Comprehension (B) sup O. Expression (B) sup - Social Cognition P. Social Interaction Peter Q. Problem Solving sup R. Memory sup - Endurance Fair - Balance Fair - Safety Awareness Fair QI SCORES: - Self-Care A. Eating 03-Partial/moderate assistance B. Oral hygiene 03-Partial/moderate assistance C. Toileting hygiene 03-Partial/moderate assistance E. Shower/bathe self 88-Not attempted due to medical condition or safety concerns F. Upper body dressing 03-Partial/moderate assistance G. Lower body dressing 03-Partial/moderate assistance H. Putting on/taking off footwear 88-Not attempted due to medical condition or safety concerns - Mobility A. Roll left and right 04-Supervision or touching assistance B. Sit to lying 04-Supervision or touching assistance C. Lying to sitting on side of bed 04-Supervision or touching assistance D. Sit to stand 04-Supervision or touching assistance E. Chair/nwy-rr-[id number] transfer 04-Supervision or touching assistance F. Toilet transfer 03-Partial/moderate assistance G. Car transfer 88-Not attempted due to medical condition or safety concerns I. Walk 10 feet 04-Supervision or touching assistance J. Walk 50 feet with two turns 04-Supervision or touching assistance K. Walk 150 feet 04-Supervision or touching assistance L. Walking 10 feet on uneven surfaces 88-Not attempted due to medical condition or safety concerns M. 1 step (curb) 88-Not attempted due to medical condition or safety concerns N. 4 steps 88-Not attempted due to medical condition or safety concerns O. 12 steps 88-Not attempted due to medical condition or safety concerns P. Picking up object 88-Not attempted due to medical condition or safety concerns R. Wheel 50 feet with two turns 88-Not attempted due to medical condition or safety concerns S. Wheel 150 feet 88-Not attempted due to medical condition or safety concerns - Bladder and Bowel Bladder continence Bowel continence - Endurance Fair - Balance Fair - Safety Awareness Fair [facility] DEFICITS: Self-Care, Mobility, Endurance, Balance, and Safety Awareness SIGNATURE PANEL: (HEAD OF MEASUREMENT & INSIGHTS)
[2021-05-03] MEDS: ACETAMINOPHEN 325 MG TABLET PO PRN (19:28)
[2021-05-03] MEDS: ATORVASTATIN 80 MG PO SCH (20:45)
[2021-05-04] MEDS: ACETAMINOPHEN 325 MG TABLET PO PRN ×2 (00:10→21:54)
[2021-05-04] MEDS: MELATONIN 5 MG TABLET PO PRN ×2 (00:10→21:54)
[2021-05-04] MEDS: IPRATROPIUM BROM 0.5MG/2.5ML NEB SCH ×4 (00:59→19:59)
[2021-05-04] MEDS: ALBUTEROL 2.5 MG/3 ML NEB SOL NEB SCH ×4 (00:59→19:59)
--- NOTE | 2021-05-04 06:22 | PN ---
Date of Progress Note: 05/03/2021 Subjective: Patient was seen for followup. No new complaints or problems reported by the patient. Sitting in chair, not in distress, sleeping, easily arousable. Denies any complaints. He reports that his leg cramping is much better with adjustment of Requip dose from 2 times a day to 3 times a day. Denies any shortness of breath. Still has cough, but somewhat better compared to before. Objective: Vital Signs: Reviewed. HEENT: Unremarkable. Lungs: Clear to auscultation. Heart: Sounds normal. Abdomen: Soft. Bowel sounds normal. No guarding, rigidity, tenderness, or distention. Extremities: Leg edema unchanged from yesterday. Impression: 1. COVID-19 infection. 2. COVID-19 pneumonia. 3. Acute respiratory failure with hypoxia, resolved. 4. Hypertension. 5. Chronic systolic heart failure. 6. Chronic kidney disease. 7. Anemia due to chronic kidney disease. Laboratory Data: Today; white count 4.4, hemoglobin 10.4, platelets 115. Sodium 137, potassium 4.2, chloride 105, bicarb 26, BUN 45, creatinine 2.31, glucose 90. Plan: We will go ahead and continue current medications. Continue diuretic therapy per order and the patient does not have any problem pertaining to COVID- 19 infection at this point and we are hoping that very soon we might be able to get him back up to rehab floor if he is accepted for ongoing physical therapy for his stroke. ANNA/MODL Voice ID: [id number] Report ID: [id number] CAMACHO
[2021-05-04] MEDS: INSULIN -REGULAR HUMAN 50 UNIT/0.5 ML ML SQ SCH ×4 (07:30→20:44)
[2021-05-04] MEDS: PANTOPRAZOLE 40MG TABLET PO SCH ×2 (07:30→17:11)
[2021-05-04] MEDS: BUDESONIDE 0.5 MG/2 ML NEB NEB SCH ×2 (07:55→20:12)
[2021-05-04] MEDS: VALACYCLOVIR 500 MG PO SCH (08:13)
[2021-05-04] MEDS: MONTELUKAST 10 MG PO SCH (08:14)
[2021-05-04] MEDS: HOME MED 1 EA UNK (Linagliptin [Tradjenta] 5 MG) PO SCH (08:14)
[2021-05-04] MEDS: ELIQUIS 2.5 MG PO SCH ×2 (08:14→20:42)
[2021-05-04] MEDS: ENTRESTO PO SCH ×2 (08:15→20:44)
[2021-05-04] MEDS: PLAVIX 75 MG PO SCH (08:15)
[2021-05-04] MEDS: ROPINIROLE 1 MG PO SCH ×3 (08:16→20:43)
[2021-05-04] MEDS: LASIX 80 MG PO SCH ×2 (08:17→17:13)
[2021-05-04] MEDS: COREG 6.25 MG PO SCH ×2 (08:18→20:43)
[2021-05-04] MEDS: MUPIROCIN 2% OINT 22GM TUBE TOP SCH ×2 (08:19→20:44)
[2021-05-04] MEDS: ATORVASTATIN 80 MG PO SCH (20:41)
[2021-05-05] MEDS: IPRATROPIUM BROM 0.5MG/2.5ML NEB SCH ×4 (02:15→20:03)
[2021-05-05] MEDS: ALBUTEROL 2.5 MG/3 ML NEB SOL NEB SCH ×4 (02:15→20:03)
[2021-05-05 05:53] LABS: Potassium 4.3 mmol/L (3.5-5.1)
[2021-05-05 05:54] LABS: Absolute Lymphocytes (CBC) 1.2 K/uL (0.7-4.9); Hematocrit 32.1 % (39.6-49.0); Lymphocytes % 25.9 % (15.3-44.8); MPV 8.3 fL (7.6-11.3); RBC Red Blood Cell Count 3.69 M/uL (4.33-5.43)
[2021-05-05 06:14] LABS: Blood Morphology Comment NOT SEEN (NOT SEEN); Platelet Estimate ADEQ
--- NOTE | 2021-05-05 06:25 | PN ---
Date of Progress Note: 05/04/2021 Subjective: The patient was seen this morning for followup. No new complaints or problems reported by the patient. Sleeping in chair. Denies any new complaints. Vital signs reviewed. His cough is overall better. He says when he sleeps in the bed, he has more cough, but when he sleeps in a reclin er, his cough is better. This is his ongoing complaints. Objective: Vital Signs: Reviewed. HEENT: Unremarkable. Lungs: Clear to auscultation. Heart: Sounds normal. Abdomen: Soft. Bowel sounds normal. No guarding, rigidity, tenderness, distention. Extremities: Leg edema unchanged. Impression: 1.Stroke. 2.COVID-19 infection. 3.Hypertension. 4.Chronic systolic heart failure. Plan: We will continue current medication. Continue current diuretic therapy. The patient's oxygen saturation is normal, on his room air oxygen and Physical Therapy to continue to work with the patie nt. I will see him tomorrow for followup. ANNA/MODL Voice ID: [id number] Report ID: [id number]
[2021-05-05] MEDS: INSULIN -REGULAR HUMAN 50 UNIT/0.5 ML ML SQ SCH ×4 (07:30→20:40)
[2021-05-05] MEDS: PANTOPRAZOLE 40MG TABLET PO SCH ×2 (07:54→15:34)
[2021-05-05] MEDS: VALACYCLOVIR 500 MG PO SCH (07:55)
[2021-05-05] MEDS: ROPINIROLE 1 MG PO SCH ×3 (07:56→20:39)
[2021-05-05] MEDS: COREG 6.25 MG PO SCH ×2 (07:56→20:38)
[2021-05-05] MEDS: HOME MED 1 EA UNK (Linagliptin [Tradjenta] 5 MG) PO SCH (07:57)
[2021-05-05] MEDS: MONTELUKAST 10 MG PO SCH (07:57)
[2021-05-05] MEDS: LASIX 80 MG PO SCH ×2 (07:58→16:12)
[2021-05-05] MEDS: PLAVIX 75 MG PO SCH (07:58)
[2021-05-05] MEDS: ELIQUIS 2.5 MG PO SCH ×2 (07:59→20:39)
[2021-05-05] MEDS: ENTRESTO PO SCH ×2 (07:59→20:39)
[2021-05-05] MEDS: MUPIROCIN 2% OINT 22GM TUBE TOP SCH ×2 (08:00→20:37)
[2021-05-05] MEDS: ACETAMINOPHEN 325 MG TABLET PO PRN ×2 (08:00→15:33)
[2021-05-05] MEDS: BUDESONIDE 0.5 MG/2 ML NEB NEB SCH ×2 (09:30→20:20)
[2021-05-05] MEDS: HYDROCODONE/CHLORPHEN 5 ML/OSYR PO PRN (11:29)
--- NOTE | 2021-05-05 17:15 | R.PN ---
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 SUBJECTIVE: Pt denied any depression. Pt denied any Shortness of Breath. He tested positive for covid-19 and is on the 4th floor to continue aggressive rehabilitation. WBC 4.5, Hgb 10.3, glucose 86 to 162, Assistance Representative 2.25, prealbumin 27.2. He ambulated 1250' with contact guard assistance using a rolling walker. COVID-19 was positive on 04/28/21. Chest X-ray: bilateral pulmonary opacities likely secondary to viral infection. VITAL SIGNS Temperature: 97.8 F SBP/DBP: 100/64 Pulse: 66 Resp: 16 MEDICATION ALLERGIES: Iodine Povidone ENVIRONMENTAL ALLERGIES: None Known - Substance Allergies None Known - Other Allergies None Known NURSING: - Shower allowing shower - Bladder care per protocol - Skin care per protocol PRECAUTIONS: - Weight Bearing Precaution WBAT left LE ACTIVITIES OOB only with supervision THERAPIES: - Dietary and Nutrition Adequate Nutrition. Nutritional Education. Nutritional Supplements. - Occupational Therapy Cognitive Retraining. Evaluate and Treat. Transfer Training. ADL Training. Adaptive Equipment. UE Str engthening. Household Tasks. Patient/Family Education. Safety Awareness. Visual Perceptual Training. - Speech Therapy Cognitive Training. Expressive Language Skills. Memory Strategies. Receptive Language Skills. Speech Intelligibility Training. - Physical Therapy Gait Training. Evaluate and Treat. Balance Training. LE Strengthening. Transfer Training. Mobility Tr aining. Safety Awareness. Patient/Family Education. PHYSICAL EXAM - Gen Alert and awake Lying in bed No apparent distress Oriented to: person, time, and place - Skin No breakdowns No abnormalities - Eyes No abnormalities - ENMT No abnormalities - Neck No abnormalities - CVS RRR - Chest No abnormalities - Abd Obese, soft, nontender - GI nondistended Deferred - No abnormalities - Ext Moderate edema in both lower extremities. - MSK 4+/5 weakness in left upper and lower extremity - Neuro 4/5 strength left upper and lower extremities. - Psych No abnormalities ASSESSMENT: Pt. is a 70 yo Right-handed male.On 04/21/2021 Pt. presented to [facility] with sudden o nset of left-side weakness.On 04/21/2021 he was admitted to [facility] with diagnosis [facility].His impairment category is Stroke 01 - Left Body (Right Brain) (01.1).Pre-morbidly, Pt. was ind ependent/mod-I in Locomotion, Safety Awareness, Social Cognition, and Balance; and he had good Transf ers Control, Self-Care, Sphincter Control, Communication, and Endurance.Currently, he has deficits of Locomotion, Social Cognition, Safety Awareness, Balance, Sphincter Control, Communication, Transfers Control, Self-Care, and Endurance.Pt. is now referred to [facility] for acute in-patient rehabilitation in order to maximize patient's functional independence in activities of da zulma living, strength, ROM, and mobility.- Rehab Goal Patient has realistic goal of being discharged at assistance level 7-Ind to reside at Home with Pt s elf. MDM/PLAN: - Physical Therapy Gait dysfunction - to improve, our physical therapists will perform initial evaluation of pt's statu s upon admission and devise an individualized program for Gait Training, and Wheel Chair mobility Inability to transfer - to improve, our physical therapists will perform initial evaluation of pt's status upon admission and devise an individualized program for Bed mobility Need for home safety evaluation - to improve, our physical therapists will perform initial evaluatio n of pt's status upon admission and devise an individualized program for Home Evaluation Need in caregiver upon discharge - to improve, our physical therapists will perform initial evaluati on of pt's status upon admission and devise an individualized program for Caregiver Training New precaution - to improve, our physical therapists will perform initial evaluation of pt's status upon admission and devise an individualized program for Patient precaution education Edema - to improve, our physical therapists will perform initial evaluation of pt's status upon admi ssion and devise an individualized program for Elevation Training, and Lymphedema Therapy Poor balance - to improve, our physical therapists will perform initial evaluation of pt's status up on admission and devise an individualized program for Balance Training Poor endurance - to improve, our physical therapists will perform initial evaluation of pt's status upon admission and devise an individualized program for Endurance Training Weakness - to improve, our physical therapists will perform initial evaluation of pt's status upon a dmission and devise an individualized program for Aquatic Therapy, Neuromuscular Reeducation, and Str engthening Achieving independence - to improve, our physical therapists will perform initial evaluation of pt's status upon admission and devise an individualized program for Community Reintegration Activities - Occupational Therapy ADL deficits - to improve, our occupation therapists will perform initial evaluation of pt's status upon admission and devise an individualized program for Bathing, Bed mobility, Community Reintegratio n, Cooking, Dressing, Eating, Fine Motor Skills, Grooming, Homemaking, Kitchen Mobility, Laundry, Pat ient Education, Safety Awareness, Splinting - Positioning, Transfers(Toilet, Tub, Shower), and Wheel Chair Management Cognitive deficits - to improve, our occupation therapists will perform initial evaluation of pt's s tatus upon admission and devise an individualized program for Cognition - orientation Need for children's zoo caretaker - to improve, our occupation therapists will perform initial evaluation of pt's status upon admission and devise an individualized program for Caregiver Training Weakness - to improve, our occupation therapists will perform initial evaluation of pt's status upon admission and devise an individualized program for Aquatic Therapy, Balance, Endurance, UE ROM, and UE strengthening - Other See attached MAR (Medication Administration Record) - Diet Type Continue Regular - Diet - Liquid Texture Continue Regular - Tube Feed Continue N/A - Bladder care per protocol - Weight Bearing Precaution WBAT left LE - Skin care per protocol - Diet - Solid Texture Continue Regular Continue Mechanical Soft Bite Sized-6 (Chopped) - Shower allowing shower for Dementia, TBI, Stroke, or others FUNCTIONAL STATUS: UPDATED AT WEEKLY TEAM CONFERENCE - Bladder Same accident frequency: 7-Ind - No accidents in the past 7 days - Bowel Same accident frequency: 7-Ind - No accidents in the past 7 days - Walking Same score based on distance walked: 0(N/A) Same score based on distance walked: 3(>=150ft) - Wheelchair Same score based on distance traveled: 0(N/A) FUNCTIONAL STATUS: - Self-Care A. Eating Ind B. Grooming Peter C. Bathing sup D. Dressing - Upper sup E. Dressing - Lower Michael F. Toileting Michael - Sphincter Control G. Bladder control Peter H. Bowel control Peter - Transfers Control I. Bed/Chair/Wheelchair sup J. Toilet sup K. Tub/Shower Michael - Locomotion L. Walk/Wheelchair (B) Michael M. Stairs modA - Communication N. Comprehension (B) sup O. Expression (B) sup - Social Cognition P. Social Interaction Peter Q. Problem Solving sup R. Memory sup - Endurance Fair - Balance Fair - Safety Awareness Fair QI SCORES: - Self-Care A. Eating 03-Partial/moderate assistance B. Oral hygiene 03-Partial/moderate assistance C. Toileting hygiene 03-Partial/moderate assistance E. Shower/bathe self 88-Not attempted due to medical condition or safety concerns F. Upper body dressing 03-Partial/moderate assistance G. Lower body dressing 03-Partial/moderate assistance H. Putting on/taking off footwear 88-Not attempted due to medical condition or safety concerns - Mobility A. Roll left and right 04-Supervision or touching assistance B. Sit to lying 04-Supervision or touching assistance C. Lying to sitting on side of bed 04-Supervision or touching assistance D. Sit to stand 04-Supervision or touching assistance E. Chair/jho-xn-acftx transfer 04-Supervision or touching assistance F. Toilet transfer 03-Partial/moderate assistance G. Car transfer 88-Not attempted due to medical condition or safety concerns I. Walk 10 feet 04-Supervision or touching assistance J. Walk 50 feet with two turns 04-Supervision or touching assistance K. Walk 150 feet 04-Supervision or touching assistance L. Walking 10 feet on uneven surfaces 88-Not attempted due to medical condition or safety concerns M. 1 step (curb) 88-Not attempted due to medical condition or safety concerns N. 4 steps 88-Not attempted due to medical condition or safety concerns O. 12 steps 88-Not attempted due to medical condition or safety concerns P. Picking up object 88-Not attempted due to medical condition or safety concerns R. Wheel 50 feet with two turns 88-Not attempted due to medical condition or safety concerns S. Wheel 150 feet 88-Not attempted due to medical condition or safety concerns - Bladder and Bowel Bladder continence Bowel continence - Endurance Fair - Balance Fair - Safety Awareness Fair [facility] 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
[2021-05-05] MEDS: ATORVASTATIN 80 MG PO SCH (20:37)
[2021-05-06] MEDS: ALBUTEROL 2.5 MG/3 ML NEB SOL NEB SCH (01:27)
[2021-05-06] MEDS: IPRATROPIUM BROM 0.5MG/2.5ML NEB SCH (01:27)
[2021-05-06] MEDS: MELATONIN 5 MG TABLET PO PRN ×2 (02:04→21:57)
[2021-05-06] MEDS: ACETAMINOPHEN 325 MG TABLET PO PRN ×3 (02:05→21:56)
[2021-05-06] MEDS: HYDROCODONE/CHLORPHEN 5 ML/OSYR PO PRN ×3 (02:13→22:08)
--- NOTE | 2021-05-06 06:01 | PN ---
Date of Progress Note: 05/05/2021 Subjective: The patient was seen this morning for followup. He was lying in bed, not in distress. Objective: Vital Signs: Reviewed. HEENT: Unremarkable. Lungs: Clear to auscultation. Heart: Sounds normal. Abdomen: Soft. Bowel sounds normal. No guarding, rigidity, tenderness, or distention. Extremities: Trace leg edema. Laboratory Data: White count 4.5, hemoglobin 10.3, platelets 120. Sodium 139, potassium 4.3, chloride 108, bicarb 26, BUN 50, creatinine 2.25, glucose 106. Impression: 1. Stroke. 2. Hypertension. 3. Chronic systolic heart failure. 4. Chronic kidney disease, stage 3B. 5. Anemia due to chronic kidney disease. Plan: We will go ahead and continue to follow with Dr. Hand from rehab for physical therapy. Continue current medical management. The patient is medically stable. He is also doing very well from COVID and has not shown any signs of pulmonary complications. ANNA/MODL Voice ID: [id number] Report ID: [id number] CAMACHO
[2021-05-06] MEDS: PANTOPRAZOLE 40MG TABLET PO SCH ×2 (07:30→10:08)
[2021-05-06] MEDS: INSULIN -REGULAR HUMAN 50 UNIT/0.5 ML ML SQ SCH ×4 (07:30→21:00)
[2021-05-06] MEDS: DULERA 200/5 (MOMETASONE/FORMOTEROL) INHALER IH SCH ×2 (09:00→21:00)
[2021-05-06] MEDS: COREG 6.25 MG PO SCH ×2 (09:55→21:58)
[2021-05-06] MEDS: ROPINIROLE 1 MG PO SCH ×3 (09:55→21:57)
[2021-05-06] MEDS: ELIQUIS 2.5 MG PO SCH ×2 (09:55→21:55)
[2021-05-06] MEDS: PLAVIX 75 MG PO SCH (09:55)
[2021-05-06] MEDS: VALACYCLOVIR 500 MG PO SCH (09:55)
[2021-05-06] MEDS: HOME MED 1 EA UNK (Linagliptin [Tradjenta] 5 MG) PO SCH (09:55)
[2021-05-06] MEDS: MONTELUKAST 10 MG PO SCH (09:55)
[2021-05-06] MEDS: LASIX 80 MG PO SCH ×2 (09:59→17:30)
[2021-05-06] MEDS: ENTRESTO PO SCH ×2 (10:00→21:58)
[2021-05-06] MEDS: MUPIROCIN 2% OINT 22GM TUBE TOP SCH ×2 (10:17→21:00)
--- NOTE | 2021-05-06 12:21 | P.PN ---
Subjective Date of Service: 05/06/21 Chief Complaint: Cough positive for coronavirus Subjective: Improving (Patient's cough is improved significantly) Review of Systems General: Weakness Respiratory: Cough Physical Examination - Vital Signs Temperature: 98.0 F Blood Pressure: 107/61 Pulse: 71 Respirations: 18 Pulse Ox (%): 97 - Physical Exam General: Alert, In no apparent distress, Oriented x3 Assessment And Plan - Current Problems (Diagnosis) (1) Chronic cough Current Visit: Yes Status: Acute Plan: Patient has chronic cough changed to Dulera inhale 2 puffs twice a day reduce pantoprazole to 40 mg once a day continue continue with pantoprazole and Dulera for at least 2 to 3-month oxygenation satisfactory stable to be transferred to a rehab unit
--- NOTE | 2021-05-06 17:42 | R.PN ---
PROGRESS NOTES ENCOUNTER DATE AND TIME: 05/06/2021 17:36 ([employer]EWARD/[employer]) NAME CHYNA RYAN DATE OF : 1950 DATE OF ADMISSION: 04/26/2021 14:12 (STEWARD/[employer]ARD[employer] CLASS) STROKECHIEF COMPLAINT: Stroke with residual left sided weakness and numbness. SUBJECTIVE: Pt denied any depression. Pt denied any Shortness of Breath. He tested positive for covid-19 and is on the 4th floor to continue aggressive rehabilitation. WBC 4.5, Hgb 10.3, glucose 74 to 108, Professor Of Rhetoric 2.25, prealbumin 27.2. He ambulated 1250' with contact guard assistance using a rolling walker. He required verbal ques. He had mild SOB and coughing with ambulation. COVID-19 was positive on 04/28/21. Chest X-ray: bilateral pulmonary opacities likely secondary to viral infection. He is followed by the pulmonary service for chronic cough. VITAL SIGNS Temperature: 98.0 F SBP/DBP: 107/61 Pulse: 71 Resp: 16 MEDICATION ALLERGIES: Iodine Povidone ENVIRONMENTAL ALLERGIES: None Known - Substance Allergies None Known - Other Allergies None Known NURSING: - Shower allowing shower - Bladder care per protocol - Skin care per protocol PRECAUTIONS: - Weight Bearing Precaution WBAT left LE ACTIVITIES OOB only with supervision THERAPIES: - Dietary and Nutrition Adequate Nutrition. Nutritional Education. Nutritional Supplements. - Occupational Therapy Cognitive Retraining. Evaluate and Treat. Transfer Training. ADL Training. Adaptive Equipment. UE Str engthening. Household Tasks. Patient/Family Education. Safety Awareness. Visual Perceptual Training. - Speech Therapy Cognitive Training. Expressive Language Skills. Memory Strategies. Receptive Language Skills. Speech Intelligibility Training. - Physical Therapy Gait Training. Evaluate and Treat. Balance Training. LE Strengthening. Transfer Training. Mobility Tr aining. Safety Awareness. Patient/Family Education. PHYSICAL EXAM - Gen Alert and awake Lying in bed No apparent distress Oriented to: person, time, and place - Skin No breakdowns No abnormalities - Eyes No abnormalities - ENMT No abnormalities - Neck No abnormalities - CVS RRR - Chest No abnormalities - Abd Obese, soft, nontender - GI nondistended Deferred - No abnormalities - Ext Moderate edema in both lower extremities. - MSK 4+/5 weakness in left upper and lower extremity - Neuro 4/5 strength left upper and lower extremities. - Psych No abnormalities ASSESSMENT: Pt. is a 70 yo Right-handed male.On 04/21/2021 Pt. presented to [facility] with sudden o nset of left-side weakness.On 04/21/2021 he was admitted to [facility] with diagnosis [facility].His impairment category is Stroke 01 - Left Body (Right Brain) (01.1).Pre-morbidly, Pt. was ind ependent/mod-I in Locomotion, Safety Awareness, Social Cognition, and Balance; and he had good Transf ers Control, Self-Care, Sphincter Control, Communication, and Endurance.Currently, he has deficits of Locomotion, Social Cognition, Safety Awareness, Balance, Sphincter Control, Communication, Transfers Control, Self-Care, and Endurance.Pt. is now referred to [facility] for acute in-patient rehabilitation in order to maximize patient's functional independence in activities of da zulma living, strength, ROM, and mobility.- Rehab Goal Patient has realistic goal of being discharged at assistance level 7-Ind to reside at Home with Pt s elf. MDM/PLAN: - Physical Therapy Gait dysfunction - to improve, our physical therapists will perform initial evaluation of pt's statu s upon admission and devise an individualized program for Gait Training, and Wheel Chair mobility Inability to transfer - to improve, our physical therapists will perform initial evaluation of pt's status upon admission and devise an individualized program for Bed mobility Need for home safety evaluation - to improve, our physical therapists will perform initial evaluatio n of pt's status upon admission and devise an individualized program for Home Evaluation Need in caregiver upon discharge - to improve, our physical therapists will perform initial evaluati on of pt's status upon admission and devise an individualized program for Caregiver Training New precaution - to improve, our physical therapists will perform initial evaluation of pt's status upon admission and devise an individualized program for Patient precaution education Edema - to improve, our physical therapists will perform initial evaluation of pt's status upon admi ssion and devise an individualized program for Elevation Training, and Lymphedema Therapy Poor balance - to improve, our physical therapists will perform initial evaluation of pt's status up on admission and devise an individualized program for Balance Training Poor endurance - to improve, our physical therapists will perform initial evaluation of pt's status upon admission and devise an individualized program for Endurance Training Weakness - to improve, our physical therapists will perform initial evaluation of pt's status upon a dmission and devise an individualized program for Aquatic Therapy, Neuromuscular Reeducation, and Str engthening Achieving independence - to improve, our physical therapists will perform initial evaluation of pt's status upon admission and devise an individualized program for Community Reintegration Activities - Occupational Therapy ADL deficits - to improve, our occupation therapists will perform initial evaluation of pt's status upon admission and devise an individualized program for Bathing, Bed mobility, Community Reintegratio n, Cooking, Dressing, Eating, Fine Motor Skills, Grooming, Homemaking, Kitchen Mobility, Laundry, Pat ient Education, Safety Awareness, Splinting - Positioning, Transfers(Toilet, Tub, Shower), and Wheel Chair Management Cognitive deficits - to improve, our occupation therapists will perform initial evaluation of pt's s tatus upon admission and devise an individualized program for Cognition - orientation Need for career based intervention coordinator - to improve, our occupation therapists will perform initial evaluation of pt's status upon admission and devise an individualized program for Caregiver Training Weakness - to improve, our occupation therapists will perform initial evaluation of pt's status upon admission and devise an individualized program for Aquatic Therapy, Balance, Endurance, UE ROM, and UE strengthening - Other See attached MAR (Medication Administration Record) - Diet Type Continue Regular - Diet - Liquid Texture Continue Regular - Tube Feed Continue N/A - Bladder care per protocol - Weight Bearing Precaution WBAT left LE - Skin care per protocol - Diet - Solid Texture Continue Regular Continue Mechanical Soft Bite Sized-6 (Chopped) - Shower allowing shower for Dementia, TBI, Stroke, or others FUNCTIONAL STATUS: UPDATED AT WEEKLY TEAM CONFERENCE - Bladder Same accident frequency: 7-Ind - No accidents in the past 7 days - Bowel Same accident frequency: 7-Ind - No accidents in the past 7 days - Walking Same score based on distance walked: 0(N/A) Same score based on distance walked: 3(>=150ft) - Wheelchair Same score based on distance traveled: 0(N/A) FUNCTIONAL STATUS: - Self-Care A. Eating Ind B. Grooming Peter C. Bathing sup D. Dressing - Upper sup E. Dressing - Lower Michael F. Toileting Michael - Sphincter Control G. Bladder control Peter H. Bowel control Peter - Transfers Control I. Bed/Chair/Wheelchair sup J. Toilet sup K. Tub/Shower Michael - Locomotion L. Walk/Wheelchair (B) Michael M. Stairs modA - Communication N. Comprehension (B) sup O. Expression (B) sup - Social Cognition P. Social Interaction Peter Q. Problem Solving sup R. Memory sup - Endurance Fair - Balance Fair - Safety Awareness Fair QI SCORES: - Self-Care A. Eating 03-Partial/moderate assistance B. Oral hygiene 03-Partial/moderate assistance C. Toileting hygiene 03-Partial/moderate assistance E. Shower/bathe self 88-Not attempted due to medical condition or safety concerns F. Upper body dressing 03-Partial/moderate assistance G. Lower body dressing 03-Partial/moderate assistance H. Putting on/taking off footwear 88-Not attempted due to medical condition or safety concerns - Mobility A. Roll left and right 04-Supervision or touching assistance B. Sit to lying 04-Supervision or touching assistance C. Lying to sitting on side of bed 04-Supervision or touching assistance D. Sit to stand 04-Supervision or touching assistance E. Chair/[id number] transfer 04-Supervision or touching assistance F. Toilet transfer 03-Partial/moderate assistance G. Car transfer 88-Not attempted due to medical condition or safety concerns I. Walk 10 feet 04-Supervision or touching assistance J. Walk 50 feet with two turns 04-Supervision or touching assistance K. Walk 150 feet 04-Supervision or touching assistance L. Walking 10 feet on uneven surfaces 88-Not attempted due to medical condition or safety concerns M. 1 step (curb) 88-Not attempted due to medical condition or safety concerns N. 4 steps 88-Not attempted due to medical condition or safety concerns O. 12 steps 88-Not attempted due to medical condition or safety concerns P. Picking up object 88-Not attempted due to medical condition or safety concerns R. Wheel 50 feet with two turns 88-Not attempted due to medical condition or safety concerns S. Wheel 150 feet 88-Not attempted due to medical condition or safety concerns - Bladder and Bowel Bladder continence Bowel continence - Endurance Fair - Balance Fair - Safety Awareness Fair CURRENT FUNC. 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
[2021-05-06] MEDS: ATORVASTATIN 80 MG PO SCH (21:55)
[2021-05-07] MEDS: ACETAMINOPHEN 325 MG TABLET PO PRN ×2 (01:04→12:58)
[2021-05-07] MEDS: INSULIN -REGULAR HUMAN 50 UNIT/0.5 ML ML SQ SCH ×4 (07:30→21:00)
[2021-05-07] MEDS: PLAVIX 75 MG PO SCH (08:08)
[2021-05-07] MEDS: MONTELUKAST 10 MG PO SCH (08:10)
[2021-05-07] MEDS: HOME MED 1 EA UNK (Linagliptin [Tradjenta] 5 MG) PO SCH (08:10)
[2021-05-07] MEDS: LASIX 80 MG PO SCH ×2 (08:11→17:52)
[2021-05-07] MEDS: ELIQUIS 2.5 MG PO SCH ×2 (08:11→21:00)
[2021-05-07] MEDS: ENTRESTO PO SCH ×2 (08:11→21:00)
[2021-05-07] MEDS: VALACYCLOVIR 500 MG PO SCH (08:12)
[2021-05-07] MEDS: COREG 6.25 MG PO SCH ×2 (08:13→21:00)
[2021-05-07] MEDS: ROPINIROLE 1 MG PO SCH ×3 (08:13→21:00)
[2021-05-07] MEDS: PANTOPRAZOLE 40MG TABLET PO SCH (08:14)
[2021-05-07] MEDS: MUPIROCIN 2% OINT 22GM TUBE TOP SCH ×2 (08:19→21:00)
[2021-05-07] MEDS: DULERA 200/5 (MOMETASONE/FORMOTEROL) INHALER IH SCH ×2 (09:00→21:00)
--- NOTE | 2021-05-07 09:52 | P.RH.PN ---
Estimated Length of Stay: 14 Expected Discharge Date: 05/03/21 Discharge Disposition Plan: Home Family Support: Yes Usp Goal: Mobility, Transfers, Self Care Vital Signs: Last Vital Signs Temp 97.7 F 05/07/21 08:00 Pulse 65 05/07/21 08:00 Resp 18 05/07/21 08:00 BP 118/58 L 05/07/21 08:00 Pulse Ox 94 05/07/21 08:00 Laboratory: Laboratory Last Values WBC 4.50 K/uL (4.3-10.9) 05/05/21 03:07 RBC 3.69 M/uL (4.33-5.43) L 05/05/21 03:07 Hgb 10.3 g/dL (13.6-17.9) L 05/05/21 03:07 Hct 32.1 % (39.6-49.0) L 05/05/21 03:07 MCV 87.0 fL (80-100) 05/05/21 03:07 MCH 27.8 pg (27.0-35.0) 05/05/21 03:07 MCHC 32.0 g/dL (32.0-36.0) 05/05/21 03:07 RDW 16.1 % (12.1-15.2) H 05/05/21 03:07 Plt Count 123 K/uL (152-406) L 05/05/21 03:07 MPV 8.3 fL (7.6-11.3) 05/05/21 03:07 Neutrophils % 41.6 % (41.7-73.7) L 05/05/21 03:07 Lymphocytes % 25.9 % (15.3-44.8) 05/05/21 03:07 Monocytes % 27.2 % (3.3-12.3) H 05/05/21 03:07 Eosinophils % 3.9 % (0-4.4) 05/05/21 03:07 Basophils % 1.4 % (0-1.3) H 05/05/21 03:07 Absolute Neutrophils 1.9 K/uL (1.8-8.0) 05/05/21 03:07 Segmented Neutrophils 48 % (40-80) 05/05/21 03:07 Band Neutrophils 1 % (0-1) 05/05/21 03:07 Absolute Lymphocytes 1.2 K/uL (0.7-4.9) 05/05/21 03:07 Lymphocytes 26 % (15-42) 05/05/21 03:07 Monocytes 11 % (0-10) H 05/05/21 03:07 Absolute Monocytes 1.2 K/uL (0.1-1.3) 05/05/21 03:07 Eosinophils 2 % (0-3) 05/05/21 03:07 Absolute Eosinophils 0.2 K/uL (0-0.5) 05/05/21 03:07 Absolute Basophils 0.1 K/uL (0-0.5) 05/05/21 03:07 Reactive Lymphocytes 12 % 05/05/21 03:07 Platelet Estimate Adeq 05/05/21 03:07 Morphology Comment Not seen (NOT SEEN) 05/05/21 03:07 Sodium 139 mmol/L (136-145) 05/05/21 03:07 Potassium 4.3 mmol/L (3.5-5.1) 05/05/21 03:07 Chloride 108 mmol/L (98-107) H 05/05/21 03:07 Carbon Dioxide 26 mmol/L (21-32) 05/05/21 03:07 BUN 50 mg/dL (7-18) H 05/05/21 03:07 Creatinine 2.25 mg/dL (0.55-1.3) H 05/05/21 03:07 Estimated GFR 35 mL/min (=/>90) L 05/05/21 03:07 Glucose 106 mg/dL (74-106) 05/05/21 03:07 POC Glucose 89 mg/dL (65-120) 05/07/21 07:35 Calcium 8.9 mg/dL (8.5-10.1) 05/05/21 03:07 Magnesium 2.4 04/27/21 04:13 C-Reactive Protein < 2.90 mg/L (<3.00) 04/30/21 03:07 Albumin 3.2 g/dL (3.4-5.0) L 04/27/21 04:13 Prealbumin 27.2 mg/dL (20-40) 04/27/21 04:13 Urine Color Yellow (Yellow) 04/26/21 20:00 Urine Appearance Clear (Clear) 04/26/21 20:00 Urine pH 5.5 (5.0-7.0) 04/26/21 20:00 Ur Specific [place] 1.010 (1.005-1.030) 04/26/21 20:00 Glucose (UA)(Auto) Negative (Negative) 04/26/21 20:00 Urine Ketones Negative (Negative) 04/26/21 20:00 Urine Blood Negative (Negative) 04/26/21 20:00 Urine Nitrite Negative (Negative) 04/26/21 20:00 Urine Bilirubin Negative (Negative) 04/26/21 20:00 Urine Urobilinogen 0.2 mg/dL (0.2-1.0) 04/26/21 20:00 Ur Leukocyte Esterase Negative (Negative) 04/26/21 20:00 Urine RBC None seen /HPF (NONE SEEN) 04/26/21 20:00 Urine WBC None seen /HPF (<5) 04/26/21 20:00 Ur Squamous Epith Cells <5 /HPF (NONE SEEN) 04/26/21 20:00 Urine Bacteria <20 /HPF (NONE SEEN) 04/26/21 20:00 Urine Culture Reflexed Not needed 04/26/21 20:00 Urine Total Protein Negative (Negative) 04/26/21 20:00 SARS-CoV-2 Rap RNA(RT-PCR) Positive (NEGATIVE) A 04/28/21 05:25 Weight: 210 lb Within Defined Parameters: No Wound Present: Yes Closed Surgical Incision Present: No Negative Pressure Wound Therapy Present: No Physician Update: Ambulating 750' with contact guard assistance. He labs were reviewed and are stable. Functional Improvement: Patient participates well w/ therapy, and currently is Min A w/ transfers and gait tx. w/ RW. Patient presents w/ good attitude toward therapy. Summary: Patient's care plan and chcf goals have been reviewed and revised as necessary. Please see the Rehabilitation Signature page for all necessary signatures.
[2021-05-07] MEDS ORDERED: FUROSEMIDE 40 MG/4 ML VIAL IV ONE (10:24)
--- NOTE | 2021-05-07 12:13 | PN ---
Date of Progress Note: 05/06/2021 Subjective: The patient was seen this morning for followup. No new complaints or problems reported by the patient. Sitting in chair. Denies any complaints. Reported that he did sleep in his bed las t night and cough is overall improving as he reports. Objective: Vital Signs: Reviewed. HEENT: Unremarkable. Lungs: Clear to auscultation. Heart: Sounds normal. Abdomen: Soft. Bowel sounds normal. No guarding, rigidity, tenderness, or distention. Extremity: Trace leg edema. Impression: 1.COVID-19 infection. 2.Chronic systolic heart failure. 3.Hypertension. 4.Chronic kidney disease. 5.Coronary artery disease. Plan: We will continue current medication, continue current diuretic therapy. The patient does not require any supplemental oxygen. We will continue physical therapy under the guidance of Dr. Mame oconnor. I will see him tomorrow for followup. His restless leg problem is better with increasing dose of ropinirole, which is 1 mg 3 times a day and we will continue that. ANNA/MODL Voice ID: [id number] Report ID: [id number]
[2021-05-07] MEDS: HYDROCODONE/CHLORPHEN 5 ML/OSYR PO PRN (12:58)
[2021-05-07] MEDS: ATORVASTATIN 80 MG PO SCH (21:00)
[2021-05-07] MEDS: MELATONIN 5 MG TABLET PO PRN (21:54)
[2021-05-08] MEDS: ACETAMINOPHEN 325 MG TABLET PO PRN ×3 (01:03→22:58)
[2021-05-08] MEDS: INSULIN -REGULAR HUMAN 50 UNIT/0.5 ML ML SQ SCH ×4 (07:30→19:37)
[2021-05-08] MEDS: ELIQUIS 2.5 MG PO SCH ×2 (08:18→19:41)
[2021-05-08] MEDS: LASIX 80 MG PO SCH ×2 (08:19→17:00)
[2021-05-08] MEDS: PLAVIX 75 MG PO SCH (08:19)
[2021-05-08] MEDS: ROPINIROLE 1 MG PO SCH ×3 (08:19→19:42)
[2021-05-08] MEDS: VALACYCLOVIR 500 MG PO SCH (08:20)
[2021-05-08] MEDS: ENTRESTO PO SCH ×2 (08:20→19:41)
[2021-05-08] MEDS: COREG 6.25 MG PO SCH ×2 (08:20→19:40)
[2021-05-08] MEDS: MONTELUKAST 10 MG PO SCH (08:21)
[2021-05-08] MEDS: HOME MED 1 EA UNK (Linagliptin [Tradjenta] 5 MG) PO SCH (08:21)
[2021-05-08] MEDS: PANTOPRAZOLE 40MG TABLET PO SCH (08:22)
[2021-05-08] MEDS: DULERA 200/5 (MOMETASONE/FORMOTEROL) INHALER IH SCH ×2 (09:00→19:40)
[2021-05-08] MEDS: MUPIROCIN 2% OINT 22GM TUBE TOP SCH ×2 (09:38→19:39)
[2021-05-08] MEDS: HYDROCODONE/CHLORPHEN 5 ML/OSYR PO PRN ×2 (09:42→19:39)
--- NOTE | 2021-05-08 16:04 | PN ---
Date of Progress Note: 05/08/2021 Subjective: Patient was seen this morning for followup. He was sitting in the chair. Denied any co mplaints. Says that last night he did sleep in the bed and did not have much coughing. Objective: Vital Signs: Reviewed. HEENT: Unremarkable. Lungs: Clear to auscultation. Heart: Sounds normal. Abdomen: Soft. Bowel sounds normal. No guarding, rigidity, tenderness, or distention. Extremity: Trace leg edema. Impression: 1.COVID-19 infection. 2.Congestive heart failure, chronic, systolic. 3.Hypertension. 4.Chronic kidney disease. 5.Hyperlipidemia. 6.Coronary artery disease. Plan: We will go ahead and continue current medications. Continue physical therapy under guidance o nettie Hand, and I have asked nursing staff to contact Dr. Hand to see if the patient can be t ransferred from fourth floor to fifth floor today or not. I will see him tomorrow for followup. Keeley fraga reported that his oxygen saturation at nighttime drops 91% to 92%, and he understands and realiz es that he does not qualify for home oxygen unless it is less than 88%. ANNA/MODL Voice ID: [id number] Report ID: [id number]
--- NOTE | 2021-05-08 16:10 | PN ---
Date of Progress Note: 05/07/2021 Subjective: The patient was seen for followup this morning. Lying in bed. Not in any distress. No new complaints or problems reported by the patient. Objective: Vital Signs: Reviewed. HEENT: Unremarkable. Lungs: Clear to auscultation. Heart: Sounds normal. Abdomen: Soft. Bowel sounds normal. No guarding, rigidity, tenderness, or distention. Extremities: Bilateral grade 1 edema. Impression: 1.COVID-19 infection. 2.Chronic systolic heart failure. 3.Coronary artery disease. 4.Hypertension. 5.Chronic kidney disease. Plan: We will go ahead and continue current medications. We will give 1 dose of Lasix 40 mg IV toda y. Physical Therapy to continue to work with the patient under guidance of Dr. Hand. I will see him tomorrow for followup. ANNA/MODL Voice ID: [id number] Report ID: [id number]
[2021-05-08] MEDS: MELATONIN 5 MG TABLET PO PRN (19:38)
[2021-05-08] MEDS: ATORVASTATIN 80 MG PO SCH (19:41)
[2021-05-09] MEDS: ACETAMINOPHEN 325 MG TABLET PO PRN ×3 (04:44→22:55)
[2021-05-09] MEDS: INSULIN -REGULAR HUMAN 50 UNIT/0.5 ML ML SQ SCH ×4 (07:30→19:27)
[2021-05-09] MEDS: DULERA 200/5 (MOMETASONE/FORMOTEROL) INHALER IH SCH ×2 (08:00→19:28)
[2021-05-09] MEDS: PANTOPRAZOLE 40MG TABLET PO SCH (08:00)
[2021-05-09] MEDS: MUPIROCIN 2% OINT 22GM TUBE TOP SCH ×2 (09:03→19:25)
[2021-05-09] MEDS: ROPINIROLE 1 MG PO SCH ×3 (09:04→19:25)
[2021-05-09] MEDS: ELIQUIS 2.5 MG PO SCH ×2 (09:04→19:26)
[2021-05-09] MEDS: HOME MED 1 EA UNK (Linagliptin [Tradjenta] 5 MG) PO SCH (09:04)
[2021-05-09] MEDS: LASIX 80 MG PO SCH ×2 (09:05→16:14)
[2021-05-09] MEDS: COREG 6.25 MG PO SCH ×2 (09:05→19:26)
[2021-05-09] MEDS: MONTELUKAST 10 MG PO SCH (09:05)
[2021-05-09] MEDS: PLAVIX 75 MG PO SCH (09:06)
[2021-05-09] MEDS: VALACYCLOVIR 500 MG PO SCH (09:06)
[2021-05-09 09:40] LABS: Absolute Lymphocytes (CBC) 0.9 K/uL (0.7-4.9); Hematocrit 32.4 % (39.6-49.0); Lymphocytes % 23.8 % (15.3-44.8); MPV 7.7 fL (7.6-11.3); RBC Red Blood Cell Count 3.67 M/uL (4.33-5.43)
[2021-05-09 09:56] LABS: Potassium 4.2 mmol/L (3.5-5.1)
[2021-05-09] MEDS: HYDROCODONE/CHLORPHEN 5 ML/OSYR PO PRN ×2 (10:52→21:04)
[2021-05-09] MEDS: ENTRESTO PO SCH ×2 (11:30→19:25)
[2021-05-09] MEDS: ATORVASTATIN 80 MG PO SCH (19:26)
[2021-05-09] MEDS: MELATONIN 5 MG TABLET PO PRN (19:28)
[2021-05-10] MEDS: PANTOPRAZOLE 40MG TABLET PO SCH (06:37)
[2021-05-10] MEDS: COREG 6.25 MG PO SCH ×2 (06:37→20:37)
[2021-05-10] MEDS: INSULIN -REGULAR HUMAN 50 UNIT/0.5 ML ML SQ SCH ×4 (06:46→20:01)
[2021-05-10] MEDS: LASIX 80 MG PO SCH ×2 (08:23→16:29)
[2021-05-10] MEDS: ELIQUIS 2.5 MG PO SCH ×2 (08:24→20:37)
[2021-05-10] MEDS: MONTELUKAST 10 MG PO SCH (08:25)
[2021-05-10] MEDS: VALACYCLOVIR 500 MG PO SCH (08:25)
[2021-05-10] MEDS: ROPINIROLE 1 MG PO SCH ×3 (08:26→20:37)
[2021-05-10] MEDS: PLAVIX 75 MG PO SCH (08:27)
[2021-05-10] MEDS: HOME MED 1 EA UNK (Linagliptin [Tradjenta] 5 MG) PO SCH (08:27)
[2021-05-10] MEDS: DULERA 200/5 (MOMETASONE/FORMOTEROL) INHALER IH SCH ×2 (10:00→20:37)
[2021-05-10] MEDS: MUPIROCIN 2% OINT 22GM TUBE TOP SCH ×2 (10:12→20:38)
[2021-05-10] MEDS: HYDROCODONE/CHLORPHEN 5 ML/OSYR PO PRN ×2 (10:23→22:36)
[2021-05-10] MEDS: ENTRESTO PO SCH ×2 (11:13→20:37)
[2021-05-10] MEDS ORDERED: guaiFENesin 100 MG/5 ML UCUP PO PRN (14:20)
--- NOTE | 2021-05-10 18:16 | R.PN ---
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 SUBJECTIVE: Pt denied any depression. Pt denied any Shortness of Breath. He tested positive for covid-19 and is on the 4th floor to continue aggressive rehabilitation. WBC 3.9, Hgb 10.3, glucose 79 to 151, Rn Internship 2.21, prealbumin 27.2. He ambulated 1250' with contact guard assistance using a rolling walker. He required verbal ques. He had mild SOB and coughing with ambulation. COVID-19 was positive on 04/28/21. Chest X-ray: bilateral pulmonary opacities likely secondary to viral infection. He is followed by the pulmonary service for chronic cough. VITAL SIGNS Temperature: 97.2 F SBP/DBP: 120/68 Pulse: 70 Resp: 16 MEDICATION ALLERGIES: Iodine Povidone ENVIRONMENTAL ALLERGIES: None Known - Substance Allergies None Known - Other Allergies None Known NURSING: - Shower allowing shower - Bladder care per protocol - Skin care per protocol PRECAUTIONS: - Weight Bearing Precaution WBAT left LE ACTIVITIES OOB only with supervision THERAPIES: - Dietary and Nutrition Adequate Nutrition. Nutritional Education. Nutritional Supplements. - Occupational Therapy Cognitive Retraining. Evaluate and Treat. Transfer Training. ADL Training. Adaptive Equipment. UE Str engthening. Household Tasks. Patient/Family Education. Safety Awareness. Visual Perceptual Training. - Speech Therapy Cognitive Training. Expressive Language Skills. Memory Strategies. Receptive Language Skills. Speech Intelligibility Training. - Physical Therapy Gait Training. Evaluate and Treat. Balance Training. LE Strengthening. Transfer Training. Mobility Tr aining. Safety Awareness. Patient/Family Education. PHYSICAL EXAM - Gen Alert and awake Lying in bed No apparent distress Oriented to: person, time, and place - Skin No breakdowns No abnormalities - Eyes No abnormalities - ENMT No abnormalities - Neck No abnormalities - CVS RRR - Chest No abnormalities - Abd Obese, soft, nontender - GI nondistended Deferred - No abnormalities - Ext Moderate edema in both lower extremities. - MSK 4+/5 weakness in left upper and lower extremity - Neuro 4/5 strength left upper and lower extremities. - Psych No abnormalities ASSESSMENT: Pt. is a 70 yo Right-handed male.On 04/21/2021 Pt. presented to [facility] with sudden o nset of left-side weakness.On 04/21/2021 he was admitted to [facility] with diagnosis [facility].His impairment category is Stroke 01 - Left Body (Right Brain) (01.1).Pre-morbidly, Pt. was ind ependent/mod-I in Locomotion, Safety Awareness, Social Cognition, and Balance; and he had good Transf ers Control, Self-Care, Sphincter Control, Communication, and Endurance.Currently, he has deficits of Locomotion, Social Cognition, Safety Awareness, Balance, Sphincter Control, Communication, Transfers Control, Self-Care, and Endurance.Pt. is now referred to [facility] for acute in-patient rehabilitation in order to maximize patient's functional independence in activities of da zulma living, strength, ROM, and mobility.- Rehab Goal Patient has realistic goal of being discharged at assistance level 7-Ind to reside at Home with Pt s elf. MDM/PLAN: - Physical Therapy Gait dysfunction - to improve, our physical therapists will perform initial evaluation of pt's statu s upon admission and devise an individualized program for Gait Training, and Wheel Chair mobility Inability to transfer - to improve, our physical therapists will perform initial evaluation of pt's status upon admission and devise an individualized program for Bed mobility Need for home safety evaluation - to improve, our physical therapists will perform initial evaluatio n of pt's status upon admission and devise an individualized program for Home Evaluation Need in caregiver upon discharge - to improve, our physical therapists will perform initial evaluati on of pt's status upon admission and devise an individualized program for Caregiver Training New precaution - to improve, our physical therapists will perform initial evaluation of pt's status upon admission and devise an individualized program for Patient precaution education Edema - to improve, our physical therapists will perform initial evaluation of pt's status upon admi ssion and devise an individualized program for Elevation Training, and Lymphedema Therapy Poor balance - to improve, our physical therapists will perform initial evaluation of pt's status up on admission and devise an individualized program for Balance Training Poor endurance - to improve, our physical therapists will perform initial evaluation of pt's status upon admission and devise an individualized program for Endurance Training Weakness - to improve, our physical therapists will perform initial evaluation of pt's status upon a dmission and devise an individualized program for Aquatic Therapy, Neuromuscular Reeducation, and Str engthening Achieving independence - to improve, our physical therapists will perform initial evaluation of pt's status upon admission and devise an individualized program for Community Reintegration Activities - Occupational Therapy ADL deficits - to improve, our occupation therapists will perform initial evaluation of pt's status upon admission and devise an individualized program for Bathing, Bed mobility, Community Reintegratio n, Cooking, Dressing, Eating, Fine Motor Skills, Grooming, Homemaking, Kitchen Mobility, Laundry, Pat ient Education, Safety Awareness, Splinting - Positioning, Transfers(Toilet, Tub, Shower), and Wheel Chair Management Cognitive deficits - to improve, our occupation therapists will perform initial evaluation of pt's s tatus upon admission and devise an individualized program for Cognition - orientation Need for summer child caregiver - to improve, our occupation therapists will perform initial evaluation of pt's status upon admission and devise an individualized program for Caregiver Training Weakness - to improve, our occupation therapists will perform initial evaluation of pt's status upon admission and devise an individualized program for Aquatic Therapy, Balance, Endurance, UE ROM, and UE strengthening - Other See attached MAR (Medication Administration Record) - Diet Type Continue Regular - Diet - Liquid Texture Continue Regular - Tube Feed Continue N/A - Bladder care per protocol - Weight Bearing Precaution WBAT left LE - Skin care per protocol - Diet - Solid Texture Continue Regular Continue Mechanical Soft Bite Sized-6 (Chopped) - Shower allowing shower for Dementia, TBI, Stroke, or others FUNCTIONAL STATUS: UPDATED AT WEEKLY TEAM CONFERENCE - Bladder Same accident frequency: 7-Ind - No accidents in the past 7 days - Bowel Same accident frequency: 7-Ind - No accidents in the past 7 days - Walking Same score based on distance walked: 0(N/A) Same score based on distance walked: 3(>=150ft) - Wheelchair Same score based on distance traveled: 0(N/A) FUNCTIONAL STATUS: - Self-Care A. Eating Ind B. Grooming Peter C. Bathing sup D. Dressing - Upper sup E. Dressing - Lower Michael F. Toileting Michael - Sphincter Control G. Bladder control Peter H. Bowel control Peter - Transfers Control I. Bed/Chair/Wheelchair sup J. Toilet sup K. Tub/Shower Michael - Locomotion L. Walk/Wheelchair (B) Michael M. Stairs modA - Communication N. Comprehension (B) sup O. Expression (B) sup - Social Cognition P. Social Interaction Peter Q. Problem Solving sup R. Memory sup - Endurance Fair - Balance Fair - Safety Awareness Fair QI SCORES: - Self-Care A. Eating 03-Partial/moderate assistance B. Oral hygiene 03-Partial/moderate assistance C. Toileting hygiene 03-Partial/moderate assistance E. Shower/bathe self 88-Not attempted due to medical condition or safety concerns F. Upper body dressing 03-Partial/moderate assistance G. Lower body dressing 03-Partial/moderate assistance H. Putting on/taking off footwear 88-Not attempted due to medical condition or safety concerns - Mobility A. Roll left and right 04-Supervision or touching assistance B. Sit to lying 04-Supervision or touching assistance C. Lying to sitting on side of bed 04-Supervision or touching assistance D. Sit to stand 04-Supervision or touching assistance E. Chair/ull-jo-qzmze transfer 04-Supervision or touching assistance F. Toilet transfer 03-Partial/moderate assistance G. Car transfer 88-Not attempted due to medical condition or safety concerns I. Walk 10 feet 04-Supervision or touching assistance J. Walk 50 feet with two turns 04-Supervision or touching assistance K. Walk 150 feet 04-Supervision or touching assistance L. Walking 10 feet on uneven surfaces 88-Not attempted due to medical condition or safety concerns M. 1 step (curb) 88-Not attempted due to medical condition or safety concerns N. 4 steps 88-Not attempted due to medical condition or safety concerns O. 12 steps 88-Not attempted due to medical condition or safety concerns P. Picking up object 88-Not attempted due to medical condition or safety concerns R. Wheel 50 feet with two turns 88-Not attempted due to medical condition or safety concerns S. Wheel 150 feet 88-Not attempted due to medical condition or safety concerns - Bladder and Bowel Bladder continence Bowel continence - Endurance Fair - Balance Fair - Safety Awareness Fair CURRENT FUNC. 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
[2021-05-10] MEDS: ATORVASTATIN 80 MG PO SCH (20:38)
[2021-05-10] MEDS: MELATONIN 5 MG TABLET PO PRN (22:04)
--- NOTE | 2021-05-11 00:27 | PN ---
Date of Progress Note: 05/10/2021 Subjective: The patient was seen this morning for followup. No new complaints, problems reported by the patient. Overall, his cough is better. He was able to sleep in bed at nighttime as he reports. Objective: Vital Signs: Reviewed. HEENT: Unremarkable. Lungs: Clear to auscultation. Heart: Sounds normal. Abdomen: Soft. Bowel sounds normal. No guarding, rigidity, tenderness, or distention. Extremities: Very trace leg edema. Overall much better than before. Impression: 1. Chronic systolic heart failure. 2. Stroke. 3. Chronic kidney disease. 4. Hypertension. 5. Coronary artery disease. Plan: We will continue current medication. Continue physical therapy under guidance of Dr. Hand. We will continue current antihypertensive medication treatment for congestive heart failure per order and I will see him tomorrow for followup. ANNA/ARMANDO Voice ID: [id number] Report ID: [id number] MTDD
[2021-05-11] MEDS ORDERED: ACETAMINOPHEN 325 MG TABLET ONE (01:55)
[2021-05-11] MEDS: ACETAMINOPHEN 325 MG TABLET PO PRN (01:59)
[2021-05-11] MEDS: MUPIROCIN 2% OINT 22GM TUBE TOP SCH ×2 (07:23→19:18)
[2021-05-11] MEDS: DULERA 200/5 (MOMETASONE/FORMOTEROL) INHALER IH SCH ×2 (07:23→19:19)
[2021-05-11] MEDS: INSULIN -REGULAR HUMAN 50 UNIT/0.5 ML ML SQ SCH ×4 (07:30→19:21)
[2021-05-11] MEDS: COREG 6.25 MG PO SCH ×2 (07:55→19:18)
[2021-05-11] MEDS: ELIQUIS 2.5 MG PO SCH ×2 (07:56→19:19)
[2021-05-11] MEDS: ROPINIROLE 1 MG PO SCH ×3 (07:56→19:22)
[2021-05-11] MEDS: MONTELUKAST 10 MG PO SCH (07:57)
[2021-05-11] MEDS: PLAVIX 75 MG PO SCH (07:57)
[2021-05-11] MEDS: LASIX 80 MG PO SCH ×2 (07:57→17:05)
[2021-05-11] MEDS: HOME MED 1 EA UNK (Linagliptin [Tradjenta] 5 MG) PO SCH (07:58)
[2021-05-11] MEDS: VALACYCLOVIR 500 MG PO SCH (07:58)
[2021-05-11] MEDS: ENTRESTO PO SCH ×2 (07:58→19:19)
[2021-05-11] MEDS: PANTOPRAZOLE 40MG TABLET PO SCH (08:01)
[2021-05-11] MEDS: HYDROCODONE/CHLORPHEN 5 ML/OSYR PO PRN ×2 (10:04→19:39)
--- NOTE | 2021-05-11 18:02 | R.PN ---
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 SUBJECTIVE: Pt denied any depression. Pt denied any Shortness of Breath. He tested positive for covid-19 and is on the 4th floor to continue aggressive rehabilitation. WBC 3.9, Hgb 10.3, glucose 107 to 146, Clearance Diver 2.21, prealbumin 27.2. COVID-19 was positive on 04/28/21. Chest X-ray: bilateral pulmonary opacities likely secondary to viral infection. He is followed by the pulmonary service for chronic cough. Therapeutic exercises done with supervision. VITAL SIGNS Temperature: 97.7 F SBP/DBP: 102/49 Pulse: 68 Resp: 16 MEDICATION ALLERGIES: Iodine Povidone ENVIRONMENTAL ALLERGIES: None Known - Substance Allergies None Known - Other Allergies None Known NURSING: - Shower allowing shower - Bladder care per protocol - Skin care per protocol PRECAUTIONS: - Weight Bearing Precaution WBAT left LE ACTIVITIES OOB only with supervision THERAPIES: - Dietary and Nutrition Adequate Nutrition. Nutritional Education. Nutritional Supplements. - Occupational Therapy Cognitive Retraining. Evaluate and Treat. Transfer Training. ADL Training. Adaptive Equipment. UE Str engthening. Household Tasks. Patient/Family Education. Safety Awareness. Visual Perceptual Training. - Speech Therapy Cognitive Training. Expressive Language Skills. Memory Strategies. Receptive Language Skills. Speech Intelligibility Training. - Physical Therapy Gait Training. Evaluate and Treat. Balance Training. LE Strengthening. Transfer Training. Mobility Tr aining. Safety Awareness. Patient/Family Education. PHYSICAL EXAM - Gen Alert and awake Lying in bed No apparent distress Oriented to: person, time, and place - Skin No breakdowns No abnormalities - Eyes No abnormalities - ENMT No abnormalities - Neck No abnormalities - CVS RRR - Chest No abnormalities - Abd Obese, soft, nontender - GI nondistended Deferred - No abnormalities - Ext Moderate edema in both lower extremities. - MSK 4+/5 weakness in left upper and lower extremity - Neuro 4/5 strength left upper and lower extremities. - Psych No abnormalities ASSESSMENT: Pt. is a 70 yo Right-handed male.On 04/21/2021 Pt. presented to [facility] with sudden o nset of left-side weakness.On 04/21/2021 he was admitted to [facility] with diagnosis [facility].His impairment category is Stroke 01 - Left Body (Right Brain) (01.1).Pre-morbidly, Pt. was ind ependent/mod-I in Locomotion, Safety Awareness, Social Cognition, and Balance; and he had good Transf ers Control, Self-Care, Sphincter Control, Communication, and Endurance.Currently, he has deficits of Locomotion, Social Cognition, Safety Awareness, Balance, Sphincter Control, Communication, Transfers Control, Self-Care, and Endurance.Pt. is now referred to [facility] for acute in-patient rehabilitation in order to maximize patient's functional independence in activities of da zulma living, strength, ROM, and mobility.- Rehab Goal Patient has realistic goal of being discharged at assistance level 7-Ind to reside at Home with Pt s elf. MDM/PLAN: - Physical Therapy Gait dysfunction - to improve, our physical therapists will perform initial evaluation of pt's statu s upon admission and devise an individualized program for Gait Training, and Wheel Chair mobility Inability to transfer - to improve, our physical therapists will perform initial evaluation of pt's status upon admission and devise an individualized program for Bed mobility Need for home safety evaluation - to improve, our physical therapists will perform initial evaluatio n of pt's status upon admission and devise an individualized program for Home Evaluation Need in caregiver upon discharge - to improve, our physical therapists will perform initial evaluati on of pt's status upon admission and devise an individualized program for Caregiver Training New precaution - to improve, our physical therapists will perform initial evaluation of pt's status upon admission and devise an individualized program for Patient precaution education Edema - to improve, our physical therapists will perform initial evaluation of pt's status upon admi ssion and devise an individualized program for Elevation Training, and Lymphedema Therapy Poor balance - to improve, our physical therapists will perform initial evaluation of pt's status up on admission and devise an individualized program for Balance Training Poor endurance - to improve, our physical therapists will perform initial evaluation of pt's status upon admission and devise an individualized program for Endurance Training Weakness - to improve, our physical therapists will perform initial evaluation of pt's status upon a dmission and devise an individualized program for Aquatic Therapy, Neuromuscular Reeducation, and Str engthening Achieving independence - to improve, our physical therapists will perform initial evaluation of pt's status upon admission and devise an individualized program for Community Reintegration Activities - Occupational Therapy ADL deficits - to improve, our occupation therapists will perform initial evaluation of pt's status upon admission and devise an individualized program for Bathing, Bed mobility, Community Reintegratio n, Cooking, Dressing, Eating, Fine Motor Skills, Grooming, Homemaking, Kitchen Mobility, Laundry, Pat ient Education, Safety Awareness, Splinting - Positioning, Transfers(Toilet, Tub, Shower), and Wheel Chair Management Cognitive deficits - to improve, our occupation therapists will perform initial evaluation of pt's s tatus upon admission and devise an individualized program for Cognition - orientation Need for healthcare customer service - to improve, our occupation therapists will perform initial evaluation of pt's status upon admission and devise an individualized program for Caregiver Training Weakness - to improve, our occupation therapists will perform initial evaluation of pt's status upon admission and devise an individualized program for Aquatic Therapy, Balance, Endurance, UE ROM, and UE strengthening - Other See attached MAR (Medication Administration Record) - Diet Type Continue Regular - Diet - Liquid Texture Continue Regular - Tube Feed Continue N/A - Bladder care per protocol - Weight Bearing Precaution WBAT left LE - Skin care per protocol - Diet - Solid Texture Continue Regular Continue Mechanical Soft Bite Sized-6 (Chopped) - Shower allowing shower for Dementia, TBI, Stroke, or others FUNCTIONAL STATUS: UPDATED AT WEEKLY TEAM CONFERENCE - Bladder Same accident frequency: 7-Ind - No accidents in the past 7 days - Bowel Same accident frequency: 7-Ind - No accidents in the past 7 days - Walking Same score based on distance walked: 0(N/A) Same score based on distance walked: 3(>=150ft) - Wheelchair Same score based on distance traveled: 0(N/A) FUNCTIONAL STATUS: - Self-Care A. Eating Ind B. Grooming Peter C. Bathing sup D. Dressing - Upper sup E. Dressing - Lower Michael F. Toileting Michael - Sphincter Control G. Bladder control Peter H. Bowel control Peter - Transfers Control I. Bed/Chair/Wheelchair sup J. Toilet sup K. Tub/Shower Michael - Locomotion L. Walk/Wheelchair (B) Michael M. Stairs modA - Communication N. Comprehension (B) sup O. Expression (B) sup - Social Cognition P. Social Interaction Peter Q. Problem Solving sup R. Memory sup - Endurance Fair - Balance Fair - Safety Awareness Fair QI SCORES: - Self-Care A. Eating 03-Partial/moderate assistance B. Oral hygiene 03-Partial/moderate assistance C. Toileting hygiene 03-Partial/moderate assistance E. Shower/bathe self 88-Not attempted due to medical condition or safety concerns F. Upper body dressing 03-Partial/moderate assistance G. Lower body dressing 03-Partial/moderate assistance H. Putting on/taking off footwear 88-Not attempted due to medical condition or safety concerns - Mobility A. Roll left and right 04-Supervision or touching assistance B. Sit to lying 04-Supervision or touching assistance C. Lying to sitting on side of bed 04-Supervision or touching assistance D. Sit to stand 04-Supervision or touching assistance E. Chair/iet-bz-tpiag transfer 04-Supervision or touching assistance F. Toilet transfer 03-Partial/moderate assistance G. Car transfer 88-Not attempted due to medical condition or safety concerns I. Walk 10 feet 04-Supervision or touching assistance J. Walk 50 feet with two turns 04-Supervision or touching assistance K. Walk 150 feet 04-Supervision or touching assistance L. Walking 10 feet on uneven surfaces 88-Not attempted due to medical condition or safety concerns M. 1 step (curb) 88-Not attempted due to medical condition or safety concerns N. 4 steps 88-Not attempted due to medical condition or safety concerns O. 12 steps 88-Not attempted due to medical condition or safety concerns P. Picking up object 88-Not attempted due to medical condition or safety concerns R. Wheel 50 feet with two turns 88-Not attempted due to medical condition or safety concerns S. Wheel 150 feet 88-Not attempted due to medical condition or safety concerns - Bladder and Bowel Bladder continence Bowel continence - Endurance Fair - Balance Fair - Safety Awareness Fair CURRENT FUNC. 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
[2021-05-11] MEDS: ATORVASTATIN 80 MG PO SCH (19:21)
[2021-05-12] MEDS: MELATONIN 5 MG TABLET PO PRN (00:10)
[2021-05-12] MEDS: ACETAMINOPHEN 325 MG TABLET PO PRN (00:11)
--- NOTE | 2021-05-12 00:49 | PN ---
Date of Progress Note: 05/11/2021 Subjective: The patient was seen this morning for followup. No new complaints or problems reported by him. Lying in bed, not in distress. Objective: Vital Signs: Reviewed. HEENT: Unremarkable. Lungs: Clear to auscultation. Heart: Sounds normal. Abdomen: Soft. Bowel sounds normal. No guarding, rigidity, tenderness, or distention. Extremities: Very trace edema of foot otherwise no leg edema. Impression: 1.Stroke. 2.Hypertension. 3.Chronic kidney disease. 4.Hyperlipidemia. 5.Coronary artery disease. 6.Chronic systolic heart failure. Plan: We will go ahead and continue current medication. Continue physical therapy under guidance of Dr. Hand and continue current medical management. I will see him tomorrow for followup. The joni arrington is scheduled to go home tomorrow. ANNA/MODL Voice ID: [id number] Report ID: [id number]
[2021-05-12] MEDS: DULERA 200/5 (MOMETASONE/FORMOTEROL) INHALER IH SCH (06:44)
[2021-05-12] MEDS: MUPIROCIN 2% OINT 22GM TUBE TOP SCH (06:45)
[2021-05-12 07:13] VITALS: BP 115/72; TEMP 97.8
[2021-05-12] MEDS: INSULIN -REGULAR HUMAN 50 UNIT/0.5 ML ML SQ SCH ×2 (07:30→11:30)
[2021-05-12] MEDS: PANTOPRAZOLE 40MG TABLET PO SCH (08:15)
[2021-05-12] MEDS: COREG 6.25 MG PO SCH (08:15)
[2021-05-12 08:16] VITALS: O2SAT 96
[2021-05-12] MEDS: VALACYCLOVIR 500 MG PO SCH (08:16)
[2021-05-12] MEDS: MONTELUKAST 10 MG PO SCH (08:16)
[2021-05-12] MEDS: ROPINIROLE 1 MG PO SCH ×2 (08:16→13:06)
[2021-05-12] MEDS: ENTRESTO PO SCH (08:17)
[2021-05-12] MEDS: PLAVIX 75 MG PO SCH (08:17)
[2021-05-12] MEDS: ELIQUIS 2.5 MG PO SCH (08:17)
[2021-05-12] MEDS: HOME MED 1 EA UNK (Linagliptin [Tradjenta] 5 MG) PO SCH (08:17)
[2021-05-12] MEDS: LASIX 80 MG PO SCH (08:18)
--- NOTE | 2021-05-12 17:12 | R.PN ---
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 SUBJECTIVE: Pt denied any depression. Pt denied any Shortness of Breath. He tested positive for covid-19 and is on the 4th floor to continue aggressive rehabilitation. WBC 3.9, Hgb 10.3, glucose 83 to 91, [place] 2.21, prealbumin 27.2. COVID-19 was positive on 04/28/21. He has done well with all therapy and is ready for discharge to continue physical therapy via home he alth. Ambulated 250' with contact guard assistance using a rolling walker. VITAL SIGNS Temperature: 97.8 F SBP/DBP: 115/72 Pulse: 60 Resp: 16 MEDICATION ALLERGIES: Iodine Povidone ENVIRONMENTAL ALLERGIES: None Known - Substance Allergies None Known - Other Allergies None Known NURSING: - Shower allowing shower - Bladder care per protocol - Skin care per protocol PRECAUTIONS: - Weight Bearing Precaution WBAT left LE ACTIVITIES OOB only with supervision THERAPIES: - Dietary and Nutrition Adequate Nutrition. Nutritional Education. Nutritional Supplements. - Occupational Therapy Cognitive Retraining. Evaluate and Treat. Transfer Training. ADL Training. Adaptive Equipment. UE Str engthening. Household Tasks. Patient/Family Education. Safety Awareness. Visual Perceptual Training. - Speech Therapy Cognitive Training. Expressive Language Skills. Memory Strategies. Receptive Language Skills. Speech Intelligibility Training. - Physical Therapy Gait Training. Evaluate and Treat. Balance Training. LE Strengthening. Transfer Training. Mobility Tr aining. Safety Awareness. Patient/Family Education. PHYSICAL EXAM - Gen Alert and awake Lying in bed No apparent distress Oriented to: person, time, and place - Skin No breakdowns No abnormalities - Eyes No abnormalities - ENMT No abnormalities - Neck No abnormalities - CVS RRR - Chest No abnormalities - Abd Obese, soft, nontender - GI nondistended Deferred - No abnormalities - Ext Moderate edema in both lower extremities. - MSK 4+/5 weakness in left upper and lower extremity - Neuro 4/5 strength left upper and lower extremities. - Psych No abnormalities ASSESSMENT: Pt. is a 70 yo Right-handed male.On 04/21/2021 Pt. presented to [facility] with sudden o nset of left-side weakness.On 04/21/2021 he was admitted to [facility] with diagnosis [facility].His impairment category is Stroke 01 - Left Body (Right Brain) (01.1).Pre-morbidly, Pt. was ind ependent/mod-I in Locomotion, Safety Awareness, Social Cognition, and Balance; and he had good Transf ers Control, Self-Care, Sphincter Control, Communication, and Endurance.Currently, he has deficits of Locomotion, Social Cognition, Safety Awareness, Balance, Sphincter Control, Communication, Transfers Control, Self-Care, and Endurance.Pt. is now referred to [facility] for acute in-patient rehabilitation in order to maximize patient's functional independence in activities of da zulma living, strength, ROM, and mobility.- Rehab Goal Patient has realistic goal of being discharged at assistance level 7-Ind to reside at Home with Pt s elf. MDM/PLAN: - Physical Therapy Gait dysfunction - to improve, our physical therapists will perform initial evaluation of pt's statu s upon admission and devise an individualized program for Gait Training, and Wheel Chair mobility Inability to transfer - to improve, our physical therapists will perform initial evaluation of pt's status upon admission and devise an individualized program for Bed mobility Need for home safety evaluation - to improve, our physical therapists will perform initial evaluatio n of pt's status upon admission and devise an individualized program for Home Evaluation Need in caregiver upon discharge - to improve, our physical therapists will perform initial evaluati on of pt's status upon admission and devise an individualized program for Caregiver Training New precaution - to improve, our physical therapists will perform initial evaluation of pt's status upon admission and devise an individualized program for Patient precaution education Edema - to improve, our physical therapists will perform initial evaluation of pt's status upon admi ssion and devise an individualized program for Elevation Training, and Lymphedema Therapy Poor balance - to improve, our physical therapists will perform initial evaluation of pt's status up on admission and devise an individualized program for Balance Training Poor endurance - to improve, our physical therapists will perform initial evaluation of pt's status upon admission and devise an individualized program for Endurance Training Weakness - to improve, our physical therapists will perform initial evaluation of pt's status upon a dmission and devise an individualized program for Aquatic Therapy, Neuromuscular Reeducation, and Str engthening Achieving independence - to improve, our physical therapists will perform initial evaluation of pt's status upon admission and devise an individualized program for Community Reintegration Activities - Occupational Therapy ADL deficits - to improve, our occupation therapists will perform initial evaluation of pt's status upon admission and devise an individualized program for Bathing, Bed mobility, Community Reintegratio n, Cooking, Dressing, Eating, Fine Motor Skills, Grooming, Homemaking, Kitchen Mobility, Laundry, Pat ient Education, Safety Awareness, Splinting - Positioning, Transfers(Toilet, Tub, Shower), and Wheel Chair Management Cognitive deficits - to improve, our occupation therapists will perform initial evaluation of pt's s tatus upon admission and devise an individualized program for Cognition - orientation Need for child care assistant - to improve, our occupation therapists will perform initial evaluation of pt's status upon admission and devise an individualized program for Caregiver Training Weakness - to improve, our occupation therapists will perform initial evaluation of pt's status upon admission and devise an individualized program for Aquatic Therapy, Balance, Endurance, UE ROM, and UE strengthening - Other See attached MAR (Medication Administration Record) - Diet Type Continue Regular - Diet - Liquid Texture Continue Regular - Tube Feed Continue N/A - Bladder care per protocol - Weight Bearing Precaution WBAT left LE - Skin care per protocol - Diet - Solid Texture Continue Regular Continue Mechanical Soft Bite Sized-6 (Chopped) - Shower allowing shower for Dementia, TBI, Stroke, or others FUNCTIONAL STATUS: UPDATED AT WEEKLY TEAM CONFERENCE - Bladder Same accident frequency: 7-Ind - No accidents in the past 7 days - Bowel Same accident frequency: 7-Ind - No accidents in the past 7 days - Walking Same score based on distance walked: 0(N/A) Same score based on distance walked: 3(>=150ft) - Wheelchair Same score based on distance traveled: 0(N/A) FUNCTIONAL STATUS: - Self-Care A. Eating Ind B. Grooming Peter C. Bathing sup D. Dressing - Upper sup E. Dressing - Lower sup F. Toileting Peter - Sphincter Control G. Bladder control Peter H. Bowel control Peter - Transfers Control I. Bed/Chair/Wheelchair sup J. Toilet sup K. Tub/Shower Michael - Locomotion L. Walk/Wheelchair (B) Michael M. Stairs modA - Communication N. Comprehension (B) sup O. Expression (B) sup - Social Cognition P. Social Interaction Peter Q. Problem Solving sup R. Memory sup - Endurance Fair - Balance Fair - Safety Awareness Fair QI SCORES: - Self-Care A. Eating 03-Partial/moderate assistance B. Oral hygiene 03-Partial/moderate assistance C. Toileting hygiene 03-Partial/moderate assistance E. Shower/bathe self 88-Not attempted due to medical condition or safety concerns F. Upper body dressing 03-Partial/moderate assistance G. Lower body dressing 03-Partial/moderate assistance H. Putting on/taking off footwear 88-Not attempted due to medical condition or safety concerns - Mobility A. Roll left and right 04-Supervision or touching assistance B. Sit to lying 04-Supervision or touching assistance C. Lying to sitting on side of bed 04-Supervision or touching assistance D. Sit to stand 04-Supervision or touching assistance E. Chair/[id number] transfer 04-Supervision or touching assistance F. Toilet transfer 03-Partial/moderate assistance G. Car transfer 88-Not attempted due to medical condition or safety concerns I. Walk 10 feet 04-Supervision or touching assistance J. Walk 50 feet with two turns 04-Supervision or touching assistance K. Walk 150 feet 04-Supervision or touching assistance L. Walking 10 feet on uneven surfaces 88-Not attempted due to medical condition or safety concerns M. 1 step (curb) 88-Not attempted due to medical condition or safety concerns N. 4 steps 88-Not attempted due to medical condition or safety concerns O. 12 steps 88-Not attempted due to medical condition or safety concerns P. Picking up object 88-Not attempted due to medical condition or safety concerns R. Wheel 50 feet with two turns 88-Not attempted due to medical condition or safety concerns S. Wheel 150 feet 88-Not attempted due to medical condition or safety concerns - Bladder and Bowel Bladder continence Bowel continence - Endurance Fair - Balance Fair - Safety Awareness Fair [facility] 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
--- NOTE | 2021-05-13 08:40 | DS ---
Date of Discharge: 05/12/2021 Disposition: Discharged to go home. Physical Examination: HEENT: Unremarkable. Lungs: Clear to auscultation. Heart: Sounds normal. Abdomen: Soft. Bowel sounds normal. No guarding, rigidity, tenderness, distention. Extremities: Very trace edema of bilateral feet. Laboratory Data: Upon admission; white count 5, hemoglobin 10.7, platelets 135. Last CBC on 05/09/2021; white count 3.9, hemoglobin 10.3, platelets 142. Last chemistry on 05/09; sodium 137, potassium 4.2, chloride 102, creatinine 2.21, glucose 165. Discharge Diagnoses: 1. Stroke with left-sided hemiparesis. 2. Chronic systolic heart failure. 3. Chronic kidney disease, stage 3B. 4. Anemia due to chronic kidney disease. 5. Thrombocytopenia. 6. Chronic obstructive pulmonary disease. 7. Type 2 diabetes mellitus. 8. Hypertension. 9. Hyperlipidemia. 10. Coronary artery disease. 11. Paroxysmal atrial fibrillation. 12. Chronic anticoagulation therapy. 13. Benign prostatic hypertrophy. 14. Osteoarthritis, multiple sites. 15. Nonalcoholic fatty liver disease. 16. 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 Discharge Medications And Instructions: 1. Continue all prior home medications. 2. Follow up at my office next week on Monday which is May 18, 2021 at 10 a.m. and the patient was advised to bring all his home medication bottles with him to the office at time of followup visit. Hospital Course: This is a 70-year-old pleasant male patient, admitted to the hospital with weakness of the left arm. Please see dictated H and P for more information. Initially, he was admitted to medical floor and subsequently he was transferred to rehab floor. The patient had a stroke that caused weakness of the left upper extremity and Dr. Hand from Neurology was consulted and once his condition was stable, he was brought to rehab floor. About 2-3 days after he was admitted to rehab floor, his repeat COVID test was done and this was a routine test because he was in the hospital for over a week and this repeat COVID test came back positive. The patient did not have any signs, symptoms of COVID. Because of his positive COVID test, the patient was transferred to fourth floor which is a COVID floor and was kept in isolation room. Physical Therapy continued to provide therapy on the fourth floor and once his COVID isolation time ended, he was brought back to fifth floor. The patient participated well with the Physical Therapy. He has some weakness of left upper extremity, but overall it has improved. His other medical problems remained stable. Today, he was discharged to go home in stable condition with above-mentioned medications and instructions. ANNA/MODL Voice ID: [id number] Report ID: [id number] CAMACHO
== END 2021-05-12 15:20 | disposition home health service (06) | DRG 56 ==
LOC: 5TH 04-26 14:12 → 4TH 04-28 16:11 → 5TH 05-08 13:18
PROVIDERS: ADMIT Internal Medicine; ATTEND Internal Medicine
DX: I69.354 Hemiplegia and hemiparesis following cerebral infarction affecting left non-dominant side (principal); U07.1 COVID-19; J96.01 Acute respiratory failure with hypoxia; J12.82 Pneumonia due to coronavirus disease 2019; I50.22 Chronic systolic (congestive) heart failure; I13.0 Hypertensive heart and chronic kidney disease with heart failure and stage 1 through stage 4 chronic kidney disease, or unspecified chronic kidney disease; C79.89 Secondary malignant neoplasm of other specified sites; J44.0 Chronic obstructive pulmonary disease with (acute) lower respiratory infection; N18.32 Chronic kidney disease, stage 3b; E11.22 Type 2 diabetes mellitus with diabetic chronic kidney disease; D63.1 Anemia in chronic kidney disease; D69.6 Thrombocytopenia, unspecified; E78.5 Hyperlipidemia, unspecified; I25.10 Atherosclerotic heart disease of native coronary artery without angina pectoris; I48.0 Paroxysmal atrial fibrillation; N40.0 Benign prostatic hyperplasia without lower urinary tract symptoms; E87.5 Hyperkalemia; M19.90 Unspecified osteoarthritis, unspecified site; E03.9 Hypothyroidism, unspecified; K76.0 Fatty (change of) liver, not elsewhere classified; C80.1 Malignant (primary) neoplasm, unspecified; I25.2 Old myocardial infarction; Z95.5 Presence of coronary angioplasty implant and graft; Z60.2 Problems related to living alone; Z87.891 Personal history of nicotine dependence; Z96.652 Presence of left artificial knee joint; Z96.642 Presence of left artificial hip joint; Z95.1 Presence of aortocoronary bypass graft; Z79.01 Long term (current) use of anticoagulants; Z88.8 Allergy status to other drugs, medicaments and biological substances; Z79.890 Hormone replacement therapy; Z79.02 Long term (current) use of antithrombotics/antiplatelets; Z79.899 Other long term (current) drug therapy
CPT/HCPCS: 36415; 71045; 80048; 81001; 82040; 82947; 83735; 84134; 85025; 86140; 87086; 87088; 92523; 92526; 94760; 97110; 97112; 97116; 97127; 97129; 97161; 97530; 97542; J1940; J7606; U0003

== ENCOUNTER 2021-09-28 21:55 | Emergency (ER) | payer OTHER ==
[2021-09-28] MEDS ORDERED: ACETAMINOPHEN 500 MG TAB ONE (23:00)
[2021-09-28 23:08] LABS: Urine Blood Negative (Negative); Urine Glucose Negative (Negative); Urine Protein Negative (Negative); Urine Specific Gravity 1.015 (1.005-1.030); Urine pH 5.5 (5.0-7.0)
--- NOTE | 2021-09-29 01:06 | ER ---
Nurse's Notes [facility] Name: Valerio Berg Age: 70 yrs Sex: Male : 1950 Arrival Date: 09/28/2021 Time: 21:58 Bed 3 Private MD: Diagnosis: Fall on same level, unspecified;Chest pain, unspecified-right lateral from fall Presentation: 09/28 22:36 Chief complaint: Patient states: "I fell on my butt and my back and now my right side vc1 hurts." Patient's son or daughter states: " He was getting out of the car and he ended up falling, he didn't hit his head or lose consciousness.". Coronavirus screen: Vaccine status: Patient reports receiving the 1st dose of the Covid vaccine. At this time, the client does not indicate any symptoms associated with coronavirus-19. Ebola Screen: No symptoms or risks identified at this time. Initial Sepsis Screen: Does the patient meet any 2 criteria? No. Patient's initial sepsis screen is negative. Does the patient have a suspected source of infection? No. Patient's initial sepsis screen is negative. Risk Assessment: Do you want to hurt yourself or someone else? Patient reports no desire to harm self or others. Onset of symptoms was September 28, 2021. 22:36 Method Of Arrival: Wheelchair vc1 22:36 Acuity: ADRIÁN 4 vc1 22:37 Chief complaint:. kl 22:37 Chief complaint: Patient states: lost his balance this am and fell . reports pain to right flank area. Care prior to arrival: None. Mechanism of Injury: Fall same level fall. Trauma event details: Injury occurred in the [facility], Injury occurred: at home. Injury occurred: September 28, 2021 Injury occurred at: 08:00. Activity prior to arrival: None. 22:37 Acuity: ADRIÁN 3 kl 22:37 Method Of Arrival: Wheelchair Historical: - Allergies: 22:38 Betadine; vc1 22:38 Povidone-Iodine; vc1 - PMHx: 22:38 Borderline Diabetes; COPD; Myocardial infarction; Hypothyroidism; "Stroke"; vc1 - PSHx: 22:38 None; vc1 - Immunization history:: Adult Immunizations up to date, Client reports receiving the Ethan \\T\\ Ethan single-dose vaccine. - Social history:: Smoking status: Patient denies any tobacco usage or history of. - Immunization history: Last tetanus immunization: - up to date. Screenin:43 Abuse screen: Denies threats or abuse. Tuberculosis screening: No symptoms or risk kl factors identified. 09/29 01:29 Fall Risk Fall in past 12 months (25 points). Secondary diagnosis (15 points) CVA. kl 01:29 Nutritional screening: No deficits noted. kl Primary Survey: 09/28 22:42 NO uncontrolled hemorrhage observed. Breathing/Chest: Spontaneous respiratory effort, kl equal unlabored respirations, breath sounds clear bilaterally, regular pattern, symmetrical chest rise and fall. Circulation: No external hemorrhage present. Regular and strong central pulse, skin warm/dry/normal color. Disability Pupils are equal, round, reactive to light and accommodation. Client is alert. Exposure/Environment: A warming method has been applied: A warm blanket has been provided to the patient. 09/29 01:29 Reassessment Breathing: Spontaneous respiratory effort, equal unlabored respirations, kl breath sounds clear bilaterally, regular pattern with symmetrical chest rise and fall. Secondary Survey: 09/28 22:43 HEENT: No deficits noted. Gastrointestinal: No deficits noted. : No deficits noted. kl Musculoskeletal: No deficits noted. Assessment: 22:39 General: Appears uncomfortable, well developed, well nourished, Behavior is calm, kl cooperative, appropriate for age. Pain: Complains of pain in right flank pain. Neuro: Level of Consciousness is awake, alert, Oriented to person, place, time, situation, previous stroke . EENT: No deficits noted. No signs and/or symptoms were reported regarding the EENT system. Cardiovascular: No deficits noted. Reports. Respiratory: No deficits noted. Airway is patent Trachea deviated to right Respiratory effort is even, unlabored, Respiratory pattern is regular, symmetrical. GI: No deficits noted. No signs and/or symptoms were reported involving the gastrointestinal system. : No deficits noted. No signs and/or symptoms were reported regarding the genitourinary system. Derm: No deficits noted. No signs and/or symptoms reported regarding the dermatologic system. Musculoskeletal: Tenderness present in right flank. Vital Signs: 22:36 BP 118 / 64; Pulse 79; Resp 17; Temp 98.0(O); Pulse Ox 100% ; Weight 91.17 kg; Height 5 vc1 ft. 10 in. (177.80 cm); Pain 6/10; 22:45 BP 106 / 69; Pulse 69; Pulse Ox 97% on R/A; aa9 22:36 Body Mass Index 28.84 (91.17 kg, 177.80 cm) vc1 Rubens Coma Score: 09/29 01:28 Eye Response: spontaneous(4). Verbal Response: oriented(5). Motor Response: obeys kl commands(6). Total: 15. Trauma Score (Adult): 01:28 Eye Response: spontaneous(1); Verbal Response: oriented(1); Motor Response: obeys kl commands(2); Systolic BP: > 89 mm Hg(4); Respiratory Rate: 10 to 29 per min(4); [place] Score: 15; Trauma Score: 12 ED Course: 09/28 21:58 Patient arrived in ED. bp1 22:24 Giancarlo Velarde PA is PHCP. cp 22:24 Asa Cordoba MD is Attending Physician. cp 22:38 Triage completed. vc1 22:38 Arm band placed on right wrist. vc1 22:52 Laura Joiner, RN is Primary Nurse. aa9 23:28 CT Traumagram (Head C Spine CAP wo con) In Process Unspecified. EDMS 07 01:29 No provider procedures requiring assistance completed. Patient did not have IV access kl during this emergency room visit. 01:30 Patient has correct armband on for positive identification. kl 01:30 Patient maintains SpO2 saturation greater than 95% on room air. kl 01:30 Thermoregulation: warm blanket given to patient. kl Administered Medications: 09/28 23:05 Drug: Tylenol 1000 mg Route: PO; as6 23:48 Follow up: Response: No adverse reaction as6 Medication: 09/29 01:30 VIS not applicable for this client. kl Intake: 01:28 PO: 400ml (Water); Total: 400ml. kl Output: :28 Urine: 600ml (Voided); Total: 600ml. kl Outcome: 01:05 Discharge ordered by . cp 01:28 Discharged to home via wheelchair. kl 01:28 Condition: stable 01:28 Discharge instructions given to patient, Instructed on discharge instructions, follow up and referral plans. medication usage, Demonstrated understanding of instructions, follow-up care, medications, Prescriptions given X 1. 01:29 Patient's length of stay in the Emergency Department was greater than 2 hours. kl 01:31 Patient left the ED. kl Signatures: Dispatcher [employer] EDMS Cecelia Magallon RN RN Giancarlo Calvin PA PA cp Pania[place], Brittany bp1 Slawson, Ashby, RN RN as6 Brandy Swartz RN RN vc1 Laura Joiner RN RN aa9
--- NOTE | 2021-09-29 01:06 | EDPHYS ---
Physician Documentation [facility] Name: Valerio Berg Age: 70 yrs Sex: Male : 1950 Arrival Date: 09/28/2021 Time: 21:58 Bed 3 Private MD: ED Physician Asa Cordoba HPI: 09/28 22:43 This 70 yrs old Black Male presents to ER via Wheelchair with complaints of Fall Injury.cp Historical: - Allergies: 22:38 Betadine; vc1 22:38 Povidone-Iodine; vc1 - PMHx: 22:38 Borderline Diabetes; COPD; Myocardial infarction; Hypothyroidism; "Stroke"; vc1 - PSHx: 22:38 None; vc1 - Immunization history:: Adult Immunizations up to date, Client reports receiving the Ethan \\T\\ Ethan single-dose vaccine. - Social history:: Smoking status: Patient denies any tobacco usage or history of. - Immunization history: Last tetanus immunization: - up to date. Vital Signs: 22:36 BP 118 / 64; Pulse 79; Resp 17; Temp 98.0(O); Pulse Ox 100% ; Weight 91.17 kg; Height 5 vc1 ft. 10 in. (177.80 cm); Pain 6/10; 22:45 BP 106 / 69; Pulse 69; Pulse Ox 97% on R/A; aa9 22:36 Body Mass Index 28.84 (91.17 kg, 177.80 cm) vc1 Rubens Coma Score: 09/29 01:28 Eye Response: spontaneous(4). Verbal Response: oriented(5). Motor Response: obeys kl commands(6). Total: 15. Trauma Score (Adult): 01:28 Eye Response: spontaneous(1); Verbal Response: oriented(1); Motor Response: obeys kl commands(2); Systolic BP: > 89 mm Hg(4); Respiratory Rate: 10 to 29 per min(4); [place] Score: 15; Trauma Score: 12 MDM: 09/28 22:26 Patient medically screened. 09/28 23:09 Order name: Urine Dipstick-Ancillary; Complete Time: 23:21 EDMS 09/28 22:45 Order name: CT Traumagram (Head C Spine CAP wo con) cp 09/28 22:45 Order name: Oxygen: supplemental for CT; Complete Time: 23:12 cp 09/28 22:54 Order name: Urine Dipstick-Ancillary (obtain specimen); Complete Time: 23:12 cp Administered Medications: 23:05 Drug: Tylenol 1000 mg Route: PO; as6 23:48 Follow up: Response: No adverse reaction as6 Disposition Summary: 09/29/21 01:05 Discharge Ordered Location: Home cp Problem: new cp Symptoms: have improved cp Condition: Stable cp Diagnosis - Fall on same level, unspecified cp - Chest pain, unspecified - right lateral from fall cp Followup: cp - With: Private Physician - When: 2 - 3 days - Reason: Worsening of condition Discharge Instructions: - Discharge Summary Sheet cp - Fall Prevention in the Home, Adult cp - Musculoskeletal Pain cp Forms: - Medication Reconciliation Form cp - Thank You Letter cp - Antibiotic Education cp - Prescription Opioid Use cp Prescriptions: - Mobic 7.5 mg Oral Tablet - take 1 tablet by ORAL route once daily take with food; 20 tablet; Refills: 0, cp Product Selection Permitted Signatures: Dispatcher [employer] EDCecelia Alejandre, RN RN Giancarlo Calvin, TONY PA cp Pawan Estevez RN RN as6 Brandy Swartz RN RN vc1
[2021-09-29 01:40] VITALS: TEMP 98
[2021-09-29 01:41] VITALS: BP 106/69; O2SAT 97
--- NOTE | 2021-09-29 11:07 | RAD REPORT ---
EXAM DESCRIPTION: CT - Head C Spine Cap Wo Greg - 09/29/2021 6:32 am CLINICAL HISTORY: Fall, right side chest pain COMPARISON: None. TECHNIQUE: CT HEAD CERVICAL SPINE CHEST ABDOMEN PELVIS WITHOUT IV CONTRAST on 09/28/2021 10:45 PM CDT This exam was performed according to our departmental dose-optimization program, which includes autom ated exposure control, adjustment of the mA and/or kV according to patient size and/or use of iterati ve reconstruction technique. FINDINGS: Brain: There is no acute hemorrhage, mass effect or midline shift. Schneider-white differentiat ion is preserved. There is no hydrocephalus. There is no significant volume loss for age. The calvarium is intact. Orbits and globes are unremarkable. The paranasal sinuses are clear. Mastoid air cells are clear. Cervical Spine: There is no acute fracture. Alignment is anatomic. There is moderate diffuse facet ar thritis, slightly worse on the right. There is moderate narrowing of the C2-3 and C3-4 disks as well as C6-7. Vertebral body heights are pr eserved. Soft tissues are unremarkable. Chest: The heart is moderately enlarged following sternotomy. There is no pericardial effusion. There are calcified left hilar and mediastinal lymph nodes. There is no pleural effusion, pleural thickening or pneumothorax. Central airways are patent. There i s mild scarring in the posterior right upper lobe. There is minimal bibasilar atelectasis. Abdomen: The liver is normal in appearance. There is no biliary dilatation. Gallbladder is normally d istended. The pancreas and spleen are normal in appearance. Adrenal glands are normal. Kidneys are mi ldly atrophic without hydronephrosis. Abdominal aorta is mildly calcified without aneurysm. There is no free air. There is no retroperitoneal adenopathy. Pelvis: There is no bowel obstruction. Urinary bladder is unremarkable. There is no free fluid. Hank endix is not clearly seen. Skeleton: There are no acute osseous findings. No suspicious bony lesions. There are postoperative ch anges of left hip arthroplasty. IMPRESSION: No definite acute posttraumatic findings. Electronically signed by: Heriberto Muse MD 09/29/2021 12:54 AM CDT Due to temporary technical issues with the PACS/Fluency reporting system, reports are being signed by the in house radiologists without review as a courtesy to insure prompt reporting. The interpreting radiologist is fully responsible for the content of the report.
== END 2021-09-29 01:31 | disposition home or self-care (01) ==
LOC: ER 21:55
DX: R07.89 Other chest pain (principal); W18.30XA Fall on same level, unspecified, initial encounter; I25.2 Old myocardial infarction; Z88.3 Allergy status to other anti-infective agents; Z91.048 Other nonmedicinal substance allergy status
CPT/HCPCS: 70450; 71250; 72125; 81003

== ENCOUNTER 2021-12-05 | Observation (INO) | payer OTHER ==
--- OUTSIDE RECORDS SUMMARY | 2021-12-05 00:05 | XMS REPORT | Clinical Summary ---
:1950 Author Organization [facility] Address [address] [place] [address] Care Team Providers Name Role Phone Ray Veliz MD Unavailable Dru Smith MD Primary Care Provider Allergies Active Allergy Reactions Severity Noted Date Comments Povidone-Iodine Rash Low 09/16/2020 Medications Medication Sig Dispensed Refills Start Date End Date Status albuterol (VENTOLIN Inhale 1-2 puffs 0 10/05/2019 Active HFA,PROAIR HFA) 90 by mouth every 6 mcg/puff inhaler (six) hours as needed for wheezing or shortness of breath. atorvastatin (LIPITOR) TAKE 1 TABLET BY 0 07/07/2020 Active 80 mg tablet MOUTH DAILY AT BEDTIME clopidogrel (PLAVIX) TAKE 1 TABLET BY 0 07/17/2020 Active 75 mg tablet MOUTH DAILY levocetirizine (XYZAL) Take 5 mg by mouth 0 10/10/19 20 Active 5 MG tablet every evening. levothyroxine TAKE 1 TABLET BY 0 07/02/2020 Active (SYNTHROID, MOUTH DAILY LEVOTHROID) 25 mcg tablet Tradjenta 5 mg tab Take 5 mg by mouth 0 07/02/2020 Active daily. montelukast TAKE 1 TABLET BY 0 07/17/2020 Active (SINGULAIR) 10 mg MOUTH DAILY tablet pantoprazole Take 40 mg by 0 01/29/2020 Ac tive (PROTONIX) 40 mg EC mouth daily with tablet breakfast. potassium chloride Take 10 mEq by 0 07/17/2020 Active (MICRO-K) 10 mEq CR mouth daily. Hold capsule for serum potassium greater than 4.5 mEq/L rOPINIRole (REQUIP) 1 Take 1 mg by mouth 0 1 Active mg tablet 2 (two) times a day as needed (restless legs). traMADol (ULTRAM) 50 TAKE 1 TABLET BY 0 09/02/2020 Active mg tablet MOUTH THREE TIMES DAILY NEEDED FOR PAIN senna-docusate Take 1 tablet by 0 Active (sennosides-docusate mouth twice daily. sodium) 8.6 mg-50 mg Hold for loose tablet stools. sodium chloride-sodium Swish and spit 10 0 1 Active bicarbonate (SALT AND mL every 6 (six) SODA) hours. Use 2 mouthwashIndications: teaspoonfuls and Diffuse high grade dissolve in 1 B-cell lymphoma quart (960 mL) of warm water. To prevent mouth sores ondansetron (Zofran) 8 Take 1 tablet (8 30 tablet 2 09/21/2020 Active mg tabletIndications: mg) by mouth every Diffuse high grade 8 (eight) hours as B-cell lymphoma needed for nausea or vomiting (first choice). prochlorperazine Take 1 tablet (5 60 tablet 2 09/21/2020 Active (Compazine) 5 mg mg) by mouth every tabletIndications: 6 (six) hours as Diffuse high grade needed for nausea B-cell lymphoma or vomiting. valACYclovir (VALTREX) Take 1 tablet (500 30 tablet 5 09/22/19 21 Active 500 mg mg) by mouth tabletIndications: daily. To prevent Diffuse high grade viral infections. B-cell lymphoma apixaban (ELIQUIS) 5 Take 1 tablet (5 0 11/04/2020 Active mg tabletIndications: mg) by mouth every Diffuse high grade 12 (twelve) hours. B-cell lymphoma ipratropium-albuterol Inhale 1 vial (3 0 11/04/2020 Active (DUO-NEB) 0.5 mg-2.5 mL) by mg/3 mL nebulizer nebulization every solutionIndications: 6 (six) hours. Acute respiratory failure with hypoxia metoprolol tartrate Take 1 tablet (25 0 11/04/2020 Active (LOPRESSOR) 25 mg mg) by mouth every tabletIndications: 12 (twelve) hours. Diffuse high grade Hold for systolic B-cell lymphoma blood pressure less than 110 mmHg or heart rate less than 60 beats per minute. torsemide (DEMADEX) 20 Take 1 tablet (20 0 1 Active mg tabletIndications: mg) by mouth Diffuse high grade daily. Hold for B-cell lymphoma systolic blood pressure less than 110 mmHg. entecavir (BARACLUDE) Take 1 tablet (0.5 10 tablet 2 1 Active 0.5 mg mg) by mouth every tabletIndications: 72 hours. To Hepatitis B carrier prevent viral infection Active Problems Problem Noted Date Paroxysmal atrial fibrillation 03/16/2021 Last Assessment & Plan: Formatting of th is note might be different from the original. Patient was seen by inpatient cardiologi in September 2020 for atrial fibrillation with last EKG done October 28, 2020 showing return to sinus rhythm. Patient is asymptomatic for palpitations or irregular he artbeats. He is currently on carvedilol 6.25 mg p.o. twice daily in addition to Eliquis 5 mg p.o. twice daily with no bleeding problems. Unfortunately patient [place] therefore w e do not have any updated labs nor EKG s arnav his visit in October. Patient will continue his current regimen and I have confirmed that he has established a follow-up with his local master yacht in March for further management. Clostridioides difficile [...] right-sided heart failure Last Assessment & Plan: Formatting of th is note might be different from the original. Echocardiogram done November 06, 2020 show s patient has preserved ejection fraction of 50% but evidence of right ventricular systolic function being reduced with elevated RVSP. Right heart catheterization done 11/02/2020 showed evidence of mild pulmonary hypertension with a pulmonary capillary wedge pressure of 11 mmHg. Patient continues to have problems with productive cough, chronic shortness of breat h and orthopnea for which he is on furos emide 80 mg p.o. twice daily. I explained to patient that based off of his heart catheterization a lot of his symptoms may be secondary to his emphysema as descri bed by the pulmonary team or primary huong g disease for which he needs to follow- up with his private pulmonary physician. 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 03/16/2021 Telemedicine Cardiology Knight, Chronic right-s ided heart failure (Primary Dx); TONY Lemons Paroxysmal atrial fibrillation Katelin Ceja PA 12/25/2020 Orders Only Lymphoma and Kimberlee Blackmon Diffuse high grade B-cell lymphoma (Primary Dx); Myeloma Sue PA Infection due t o Mycobacterium avium 12/23/2020 Telemedicine Lymphoma and Dru Smith Diffuse high grade Myeloma B-cell lymphoma 12/22/2020 Telephone Lymphoma and Lynne Dalal RN 12/16/2020 Telemedicine Lymphoma and Dru Smith Diffuse high grade Myeloma B-cell lymphoma 12/15/2020 Telephone Lymphoma and Lynne Dalal RN 12/14/2020 Documentation Radiation Oncology Princess Pringle PA 12/09/2020 Telephone Radiation Oncology Antonette Corona Appoint ment (Left C, RN Message - Mr. Apolonia tavares provided this n rikki and number and gave permission for me to call this perso n stating "she is my ride and will b ring me for my appointments." Left VM re: upcoming appts on 12/11. Also l eft RO Heme clinic # & asked for return call for scheduling.) 12/07/2020 Hospital Encounter Radiation Oncology Len, No Show MD Jesika Azar Penny, MD 12/07/2020 Telemedicine Infectious Diseases Dru Smith, Hepati tis B antibody Swapnil Moran MD 12/07/2020 Orders Only Cardiology Knight, Paroxysmal atri TONY [place] fibrillation (P rimary Dx) 12/07/2020 Telephone Radiation Oncology Antonette Corona Appoint ment (Patient C, RN a no show for appointment. He states he did n ot come for his appointment toleidy hernandez d/t weather. Inquir ed about reliable rides for visits; willian fraga provided a numb er and name (Scott [phone]) a nd says she can be contacted about ride status. He was reminded of his upcoming appoin tments on Monday for X RAYs and Ortho follo w up. ) 12/07/2020 Telephone Radiation Oncology Antonette Corona RN 12/07/2020 Telephone Infectious Diseases Fartun Murrieta RN after 12/05/2020 Surgical History Surgery Date Site/Laterality Comments KNEE [...] file Obstetrics History Last Filed Vital Signs Not on file Plan of Treatment Health Maintenance Due Date Last Done Comments COVID-19 Vaccination (#1) 04/10/1951 Medical Devices Implanted Type Area Remelt Furnace Expediter Device Shelf Model / Identifier Expiration Date Ser ial / Lot Metalware Metalware Right: Arm Description: pt sts he has a metal ryan i n r arm Stent Stent Heart Results Not on fileafter 12/05/2020 Insurance Payer Benefit Plan / Subscriber ID Effective Dates Phone Addre ss Type Group HUMANA HUMANA CHOICE [id number] 2020-Presen [address] [address] Medicare MEDIC[place] [address] Advance Directives Type Date Recorded 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
[2021-12-05] MEDS ORDERED: LEVALBUTEROL 1.25 MG/3 ML NEB ONE (00:22)
[2021-12-05] MEDS ORDERED: METHYLPREDNISOLONE 125 MG INJ ONE (00:22)
[2021-12-05] MEDS ORDERED: MAGNESIUM SULFATE 1 gm IVPB 1 GM/100 ML BAG IV ONE (00:22)
[2021-12-05 00:31] LABS: Blood Gas Oxyhemoglobin 96.9 % (94-97); Blood O2 Saturation 99.3 % (92-98.5)
--- OUTSIDE RECORDS SUMMARY | 2021-12-05 00:38 | XMS REPORT | Continuity of Care Document ---
:1950 Author Organization [facility] t Address [address] [place] [address] Care Team Providers Name Role Phone Dru Smith MD Primary Care Physician Ray Veliz Attending Clinician Unavailable [id number] Attending Clinician Unavailable NINA REYNOSO Attending Clinician Unavailable MOSES TORIBIO Attending Clinician Unavailable SYSTEM, PROVIDER NOT IN Attending Clinician Unavailable BETH ADEN Attending Clinician Unavailable Kimberlee Rai Attending Clinician Vesta Kessler Attending Clinician Katelin Gaona Attending Clinician Dru Smith MD Attending Clinician Mulugeta MIXON, Bailey Villagomez Attending Clinician Unavailable Princess Marquez Attending Clinician Cj MIXON, Antonette Carney Attending Clinician Unavailable Len LOVE, Nissa Attending Clinician Jesika LOVE, Latisha Attending Clinician Milton LOVE, Swanpil Attending Clinician Lit MIXON, Fartun Jones Attending Clinician Unavailable Alex LOVE, Yomaira Martinez Attending Clinician [phone] Phong RN, Alyssa Glover Attending Clinician Unavailable Herber LOVE PhD, Armando Marie Attending Clinician [phone] Luiza LOVE, Bud Pacheco Attending Clinician [phone] Dionna LOVE, Randolph Gallagher Attending Clinician Vivien LOVE, Alba Trimble Attending Clinician Lavonne LOVE, Darryl Attending Clinician Hayden LOVE PhD, [facility] Attending Clinician Abiodun Borjas MD, Randolph Gallagher Attending Clinician [phone] Elizabeth Zavala Attending Clinician Charito Spain Attending Clinician Denny Shah Attending Clinician Yanet Gurrola NP Attending Clinician Conrad RTBeck L Attending Clinician Unavailable KRISTINA BLAKE Attending Clinician Unavailable Breezy LOVE, Mishel Attending Clinician Evi Turner APN Attending Clinician DRU SMITH Attending Clinician Unavailable CJ COYNE Attending Clinician Unavailable Geena Espinosa PT Attending Clinician Denny Nayak MD Attending Clinician Unavailable Mari Lovell NP Attending Clinician Guzman BLANKENSHIP, Cj Attending Clinician RANDOLPH PAYNE Attending Clinician Unavailable KIARA PATEL Attending Clinician Unavailable MIGDALIA KRUGER Attending Clinician Unavailable Kylie Mensah Attending Clinician JURGEN QUEEN Attending Clinician Unavailable CHANO WILLAMS Attending Clinician Unavailable ESTELLA PRIEST Attending Clinician Unavailable ELISA CAMPSO Attending Clinician Unavailable MILAGRO ALFARO JR Attending Clinician Unavailable JESENIA ALDRICH Attending Clinician Unavailable TIRSO ARRIOLA Attending Clinician Unavailable ERNESTINA ARIAS Attending Clinician Unavailable ANGELO WRAY Attending Clinician Unavailable AFIA CASTAÑEDA Attending Clinician Unavailable NICOLE CHEEK Attending Clinician Unavailable NICOLE CHEEK Attending Clinician Unavailable Only, Adc Test Attending Clinician Unavailable Nicole Cheek DO Attending Clinician Doctor Unassigned, Sister [place] Attending Clinician Unavailable Eugenia Benedict Attending Clinician [id number] Admitting Clinician Unavailable NINA REYNOSO Admitting Clinician Unavailable MOSES TORIBIO Admitting Clinician Unavailable BETH ADEN Admitting Clinician Unavailable RANDOLPH PAYNE Admitting Clinician Unavailable DRU SMITH Admitting Clinician Unavailable Eugenia Benedict Admitting Clinician Payers Payer Name Policy Type Policy Number Effective Date Expiration Date S ource [employer] CHOICE [id number] 2020 MEDICARE PPO 00:00:00 [employer] MEDICARE ADV [id number] 2020 00:00:00 [facility] [id number] 2016 MEDICARE GOLD 00:00:00 Problems Condition Condition Condition Status Onset Resolution Last Treating Co mments Source Name Details Category Date Date Treatment Clinician Date Paroxysmal Paroxysmal Disease Active 2020-03 Last U nivers atrial atrial 2-21 Assessmen ity of fibrillati fibrillati 00:00: t & Plan: [place] on on Brigitte villagomez of this [place] note n might be Cancer different Center from the original. Patient was seen by [...] p.o. twice daily with no bleeding problems. Raquel corona patient [place] therefore we do not have any updated labs nor EKG since his visit in October. Patient will continue his current regimen and I have confirmed that he has establish ed a follow-up with his local cardiolog ist in March for further managemen t. Clostridio Clostridio Disease Active U nivers ides ides 8 ity of difficile difficile 00:00: [place] infection [facility] Acute Acute Disease Active Univers respirator respirator 09-29 it y of y failure y failure 00:00: [place] with with 00 hypoxia hypoxia [facility] Pneumonia Pneumonia Disease Active Uni vers due to due to 09-29 ity of other other 00:00: [place] specified specified 00 bacteria bacteria [facility] Severe Severe Disease Active Univers sepsis sepsis 09-29 ity of with with 00:00: [place] septic septic 00 shock shock [facility] Bilateral Bilateral Disease Active Uni vers pneumonia pneumonia 09-29 ity of 00:00: [place] 00 [facility] 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 09-29 ity of neoplastic neoplastic [place] disease disease 00 [facility] Chronic Chronic Disease Active Univers obstructiv obstructiv - it y of e e 00:00: [place] pulmonary pulmonary 00 disease disease [facility] 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 00 [facility] Mass of Mass of Disease Active Univers neck neck 6- ity of 00:00: [place] 00 [facility] History of History of Disease Active U nivers myocardial myocardial 6-14 it [place] of infarction [place] [facility] History of History of Disease Active U nivers placement placement 6-14 ity of of stent of stent 00:00: [place] for for 00 coronary coronary Herman o artery artery n disease disease Cancer Center Wound Wound Disease Active Univers cellulitis cellulitis 1-24 it y of after after 00:00: [place] surgery surgery 00 [facility] Branch Wound Wound Disease Active Univers cellulitis cellulitis 1-24 it y of after after 00:00: [place] surgery surgery 00 [facility] Coronary Coronary Disease Active 2016-03 Unive rs artery artery 2-13 ity of disease disease 00:00: [place] involving involving 00 Medi michael mechoopda mecho[facility] Branch coronary coronary artery of artery of mechoopda mechoopda heart heart without without angina angina pectoris [...] 00:00: [place] involving involving 00 Medi michael mechoopda mechoopda Branch coronary coronary artery of artery of mechoopda mechoopda heart heart without without angina angina pectoris pectoris 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 2-11 it y of t status t status 00:00: [place] 00 [facility] ACUTE ACUTE Diagnosis Active 2016-07-19 Mem oria CHEST PAIN CHEST PAIN 06-15 21:59:00 l Active 00:00: Ty 06/15/[address] [place] [address] NSTEMI NSTEMI Diagnosis Active 2016-06-15 Me moria Active 06-15 11:09:00 l 06/15/2016 00:00: Rafat CHANDRA [address] [place] [address] Hepatitis Hepatitis Disease Active Uni vers B carrier B carrier ity of [place] MD [facility] History of History of Disease Active U nivers hepatitis hepatitis ity of C C [place] MD Cowan n [facility] Long-term Long-term Disease Active Uni vers current current ity of use of use of Yaima rituximab rituximab MD Camryn archuleta [facility] Patient Patient Disease Active Univers immunocomp immunocomp it y of romised romised Yaima archuleta [facility] Acute Acute Disease Active Univers injury of injury of ity of kidney kidney Yaima archuleta [facility] Hyperurice Hyperurice Disease Active U nivers damien damien ity of Yaima archuleta [facility] Chronic Chronic Disease Active Last Univers right-side right-side Assessmen ity of d heart d heart t & Plan: [place] failure failure Formattin g of this [place] note n might be Cancer different Center from the original. Echocardi ogram done November 06, 2020 shows patient has preserved ejection fraction of 50% but evidence of right ventricul ar systolic function being reduced with elevated RVSP. Right heart catheteri zation done 1 showed evidence of mild pulmonary hypertens ion [...] furosemid e 80 mg p.o. twice daily. Bloodstrea Bloodstrea Disease Active U nivprabhjot m m ity of infection [place] due to due to central central Camryn venous venous n catheter catheter [facility] Pneumonia Pneumonia Disease Active Uni vers due to due to ity of Pseudomona Pseudomona Orlando archuleta [facility] Sepsis Sepsis Disease Active Univers caused by caused by ity of Pseudomona Pseudomona [place] vidales MD aeruginosa aeruginosa An derso n [facility] Acute Acute Disease Active Univers kidney kidney ity of failure failure [place] with with lesion of lesion of Jay rso tubular tubular n necrosis necrosis Cancer Center Persistent Persistent Disease Active U nivprabhjot atrial atrial ity of fibrillati fibrillati [place] [facility] Toxic Toxic Disease Active Univers metabolic metabolic ity of encephalop encephalop Te xaflash athshayne freire MD [facility] 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 mouna [facility] Chronic Chronic Disease Active Univers systolic systolic ity of congestive congestive Te krishna heart heart failure failure [facility] 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 [place] carley howe MD [facility] Other Other Disease Active Univers elevated elevated ity of white white [place] blood cell blood cell count count [facility] Electrolyt Electrolyt Disease Active U nivers e and e and ity of fluid fluid [place] disorders disorders not not [facility] elsewhere elsewhere n classified classified [facility] CHEST CHEST Diagnosis Active 2016-07-19 Mem oria PAIN, PAIN, 21:59:00 l UNSPECIFIE UNSPECIFIE He rmann D D Active [facility] Mild Mild Problem Resolve 2018-08-06 2018-08-06 Memoria chronic chronic d 03-27 13:34:33 13:34:33 l obstructiv obstructiv 00:00: He rmjigna e e 00 pulmonary pulmonary disease disease (disorder) (disorder) Resolved 03/27/2012 Problem 08/06/2018 [facility] Allergies, Adverse Reactions, Alerts Allergy Allergy Status Severity Reaction(s) Onset Inactive Treating Comm ents Source Name Type Date Date Clinician Povidone Propensi Active Rash Univer s -Iodine ty to 09-16 ity of adverse 00:00: [place] reaction 00 MD vidales [facility] Povidone Propensi Active Hives Univer s -Iodine ty to 07-07 ity of adverse 00:00: [place] reaction 00 Medical s Branch POVIDONE DRUG Active Hives Univers -IODINE INGREDI 07-07 ity of 00:00: [place] 00 Medical Branch Betadine Betadine Active Mo Crawford NO KNOWN Allergy Active [facility] Social History Social Habit Start Date Stop Date Quantity Comments Source History SDOH [facility] Alcohol Std Drinks [facility] History SDOH [facility] Alcohol Binge Medical Jose ter History SDOH [facility] Alcohol Comment Medical C enter History of tobacco Cigarette Smoker University of use [place] MD Dereck kim [facility] Alcohol intake 2021-03-16 2021-03-16 Ex-drinker University 00:00:00 00:00:00 (finding) Yaima kim [facility] History SDOH 2020-09-07 2020-09-[address] [facility] Alcohol Frequency 00:00:00 00:00:00 [facility] Cigarettes smoked 2020-09-07 2020-09-07 Univers ity of current (pack per 00:00:00 00:00:00 [place] Aimee Jones ) - Reported Cancer Ce nter Cigarette 2020-09-07 2020-09-07 University of pack-years 00:00:00 00:00:00 [place] MD Dereck kim [facility] Tobacco use and 2020-09-07 2020-09-07 Smokeless Universit y of exposure 00:00:00 00:00:00 tobacco non-user [place] [facility] Tobacco Comment 2020-09-07 2020-09-07 stopped smoking Univ ersity of 00:00:00 00:00:00 15 years ago [place] [facility] Sex [birth year] At [birth year] Universit y of 00:00:00 00:00:00 [place] MD Harden [facility] Smoking Status Start Date Stop Date Source Never smoker [facility] Social History 2016-06-15 16:58:56 2016-06-15 16:58:56 [facility] Medications Ordered Filled Start Stop Current Ordering Indication Dosage Frequency Signature Comments Components Source Medication Medication Date Date Medication? Clinician (SIG) Name Name Nor1 Yes 1{tbl} Take 1 Un osvaldo ate 8-21 tablet by ity of (sennosides 14:36: mouth [place] -docusate 14 twice MD sodium) 8.6 daily. Herman o mg-50 mg Hold for n tablet loose [facility] st[facility] Yes 1{tbl} Take 1 Un osvaldo ate 8-21 tablet by ity of (sennosides 14:36: mouth [place] -docusate 14 twice MD sodium) 8.6 daily. Herman o mg-50 mg Hold for n tablet loose Cancer stools. [place] [facility] Yes 1{tbl} Take 1 Un osvaldo ate 8-21 tablet by ity of (sennosides 14:36: mouth [place] -docusate 14 twice MD sodium) 8.6 daily. Herman o mg-50 mg Hold for n tablet loose Cancer stools. [place] [facility] Yes 1{tbl} Take 1 Un osvaldo ate 8-21 tablet by ity of (sennosides 14:36: mouth [place] -docusate 14 twice MD sodium) 8.6 daily. Herman o mg-50 mg Hold for n tablet loose Cancer stools. [place] entecavir Yes Hepatitis B .5mg Take 1 Univers (BARACLUDE) 8-20 carrier tablet ity of 0.5 mg 00:00: (0.5 mg) [place] tablet 00 by mouth MD every 72 Anders[place] hours. To n prevent Cancer viral Center infection entecavir Yes Hepatitis B .5mg Take 1 Univers (BARACLUDE) 8-20 carrier tablet ity of 0.5 mg 00:00: (0.5 mg) [place] tablet 00 by mouth MD every 72 [place] hours. To n prevent Cancer viral Center infection entecavir Yes Hepatitis B .5mg Take 1 Univers (BARACLUDE) 8-20 carrier tablet ity of 0.5 mg 00:00: (0.5 mg) [place] tablet 00 by mouth MD every 72 [place] hours. To n prevent Cancer viral Center infection entecavir Yes Hepatitis B .5mg Take 1 Univers (BARACLUDE) 8-20 carrier tablet ity of 0.5 mg 00:00: (0.5 mg) [place] tablet 00 by mouth MD every 72 [place] hours. To n prevent Cancer viral Center infection entecavir 2020- No Hepatitis B .5mg Take 1 Univers (BARACLUDE) 8-20 08-20 carrier tablet it y of 0.5 mg 00:00: 00:00 (0.5 mg) [place] tablet 00 :00 by mouth MD every 72 [place] hours. Cancer Center entecavir 2020- No Hepatitis B .5mg Take 1 Univers (BARACLUDE) 8-20 08-20 carrier tablet it y of 0.5 mg 00:00: 00:00 (0.5 mg) [place] tablet 00 :00 by mouth MD every 72 [place] hours. n Cancer Center entecavir 2020- No Hepatitis B .5mg Take 1 Univers (BARACLUDE) 8-20 08-20 carrier tablet it y of 0.5 mg 00:00: 00:00 (0.5 mg) [place] tablet 00 :00 by mouth MD every 72 [place] hours. n Cancer Center torsemide Yes Diffuse 20mg Take 1 Uni vers (DEMADEX) 8-12 high grade tablet (20 ity of 20 mg 00:00: B-cell mg) by [place] tablet 00 lymphoma mouth daily. [place] Hold for n systolic Cancer blood Center pressure less than 110 mmHg. torsemide Yes Diffuse 20mg Take 1 Uni vers (DEMADEX) 8-12 high grade tablet (20 ity of 20 mg 00:00: B-cell mg) by [place] tablet 00 lymphoma mouth daily. [place] Hold for n systolic Cancer blood Center pressure less than 110 mmHg. torsemide Yes Diffuse 20mg Take 1 Uni vers (DEMADEX) 8-12 high grade tablet (20 ity of 20 mg 00:00: B-cell mg) by [place] tablet 00 lymphoma mouth daily. [place] Hold for n systolic Cancer blood Center pressure less than 110 mmHg. torsemide Yes Diffuse 20mg Take 1 Uni vers (DEMADEX) 8-12 high grade tablet (20 ity of 20 mg 00:00: B-cell mg) by [place] tablet 00 lymphoma mouth daily. [place] Hold for n systolic Cancer blood Center pressure less than 110 mmHg. apixaban Yes Diffuse 5mg Take 1 Univ ers (ELIQUIS) 5 8-11 high grade tablet (5 ity of mg tablet 00:00: B-cell mg) by [place] vidales 00 lymphoma mouth every 12 [place] (twelve) n hours. Cancer Center ipratropium Yes Acute 3mL Inhale 1 U nivers -albuterol 8-11 respiratory vial (3 ity of (DUO-NEB) 00:00: failure mL) by [place] smalls 0.5 mg-2.5 00 with nebulizati MD mg/3 mL hypoxia on every 6 And erso nebulizer (six) n solution hours. Cancer Center metoprolol Yes Diffuse 25mg Take 1 Un osvaldo tartrate 8-11 high grade tablet (25 ity of (LOPRESSOR) 00:00: [place]cell mg[place] 25 mg 00 lymphoma mouth MD tablet every 12 [place] (twelve) n hours. Cancer Hold for Center systolic blood pressure less than 110 mmHg or heart rate less than 60 beats per minute. apixaban Yes Diffuse 5mg Take 1 Univ ers (ELIQUIS) 5 8-11 high grade tablet (5 ity of mg tablet 00:00: B-cell mg[place] 00 lymphoma mouth [place] every 12 [place] (twelve) n hours. Cancer Center ipratropium Yes Acute 3mL Inhale 1 U nivers -albuterol 8-11 respiratory vial (3 ity of (DUO-NEB) 00:00: failure mL) by [place] as 0.5 mg-2.5 00 with nebulizati MD mg/3 mL hypoxia on every 6 And erso nebulizer (six) n solution hours. Cancer Center metoprolol Yes Diffuse 25mg Take 1 Un osvaldo tartrate 8-11 high grade tablet (25 ity of (LOPRESSOR) 00:00: [place]cell mg[place] 25 mg 00 lymphoma mouth MD tablet every 12 [place] (twelve) n hours. Cancer Hold for Center systolic blood pressure less than 110 mmHg or heart rate less than 60 beats per minute. apixaban Yes Diffuse 5mg Take 1 Univ ers (ELIQUIS) 5 8-11 high grade tablet (5 ity of mg tablet 00:00: B-cell mg[place] 00 lymphoma mouth [place] every 12 [place] (twelve) n hours. Cancer Center ipratropium Yes Acute 3mL Inhale 1 U nivers -albuterol 8-11 respiratory vial (3 ity of (DUO-NEB) 00:00: failure mL) by [place] as 0.5 mg-2.5 00 with nebulizati MD mg/3 mL hypoxia on every 6 And erso nebulizer (six) n solution hours. Cancer Center metoprolol Yes Diffuse 25mg Take 1 Un osvaldo tartrate 8-11 high grade tablet (25 ity of (LOPRESSOR) 00:00: B-cell mg[place] 25 mg 00 lymphoma mouth MD tablet every 12 [place] (twelve) n hours. Cancer Hold for Center systolic blood pressure less than 110 mmHg or heart rate less than 60 beats per minute. apixaban Yes Diffuse 5mg Take 1 Univ ers (ELIQUIS) 5 8-11 high grade tablet (5 ity of mg tablet 00:00: B-cell mg) by [place] s 00 lymphoma mouth MD every 12 [place] (twelve) n hours. Cancer Center ipratropium Yes Acute 3mL Inhale 1 U nivers -albuterol 8-11 respiratory vial (3 ity of (DUO-NEB) 00:00: failure mL) by [place] as 0.5 mg-2.5 00 with nebulizati MD mg/3 mL hypoxia on every 6 And erso nebulizer (six) n solution hours. Cancer Center metoprolol Yes Diffuse 25mg Take 1 Un osvaldo tartrate 8-11 high grade tablet (25 ity of (LOPRESSOR) 00:00: B-cell mg[place] 25 mg 00 lymphoma mouth MD tablet every 12 [place] (twelve) n hours. Cancer Hold for Center systolic blood pressure less than 110 mmHg or heart rate less than 60 beats per minute. entecavir 2020- No Hepatitis B .5mg Take 1 Univers (BARACLUDE) 09-22-20 carrier tablet it y of 0.5 mg 00:00: 00:00 (0.5 mg) [place] tablet 00 :00 by mouth daily. [facility] entecavir 2020- No Hepatitis B .5mg Take 1 Univers (BARACLUDE) 09-22 08-20 carrier tablet it y of 0.5 mg 00:00: 00:00 (0.5 mg) [place] tablet 00 :00 by mouth daily. [facility] entecavir 2020- No Hepatitis B .5mg Take 1 Univers (BARACLUDE) 09-22-20 carrier tablet it y of 0.5 mg 00:00: 00:00 (0.5 mg) [place] tablet 00 :00 by mouth MD daily. [place] n Cancer Center sodium 2020-0 Yes Diffuse 10mL Swish and Uni vers chloride-so 6-28 high grade spit 10 mL ity of dium 00:00: B-cell every 6 [place] bicarbonate 00 lymphoma (six) MD (SALT AND hours. Use Jay rso SODA) 2 n mouthwash teaspoonfu Canc er ls and Center dissolve in 1 quart (960 mL) of warm water. To prevent mouth sores ondansetron Yes Diffuse 8mg Take 1 U nivers (Zofran) 8 6-28 high grade tablet (8 ity of mg tablet 00:00: B-cell mg) [place] 00 lymphoma mouth MD every 8 [place] (eight) n hours as Cancer needed for Center nausea or vomiting (first choice). prochlorper Yes Diffuse 5mg Take 1 U nivers azine 6-28 high grade tablet (5 ity of (Compazine) 00:00: B-cell mg) [place] 5 mg tablet 00 lymphoma mouth MD every 6 [place] (six) n hours as Cancer needed for Center nausea or vomiting. valACYclovi Yes Diffuse 500mg Take 1 Univers r (VALTREX) 6-28 high grade tablet ity of 500 mg 00:00: B-cell (500 mg) [place] tablet 00 lymphoma by mouth MD daily. To Anders prevent n viral Cancer infections Center . sodium Yes Diffuse 10mL Swish and Uni vers chloride-so 6-28 high grade spit 10 mL ity of dium 00:00: B-cell every 6 [place] bicarbonate 00 lymphoma (six) MD (SALT AND hours. Use Jay rso SODA) 2 n mouthwash teaspoonfu Canc er ls and Center dissolve in 1 quart (960 mL) of warm water. To prevent mouth sores ondansetron Yes Diffuse 8mg Take 1 U nivers (Zofran) 8 6-28 high grade tablet (8 ity of mg tablet 00:00: B-cell mg) [place] 00 lymphoma mouth MD every 8 [place] (eight) n hours as Cancer needed for Center nausea or vomiting (first choice). prochlorper 2021-0 Yes Diffuse 5mg Take 1 U nivers azine 6-28 high grade tablet (5 ity of (Compazine) 00:00: B-cell mg) by [place] 5 mg tablet 00 lymphoma mouth MD every 6 [place] (six) n hours as Cancer needed for Center nausea or vomiting. valACYclovi Yes Diffuse 500mg Take 1 Univers r (VALTREX) 6-28 high grade tablet ity of 500 mg 00:00: B-cell (500 mg) [place] tablet 00 lymphoma by mouth MD daily. To [place] prevent n viral Cancer infections Center . sodium Yes Diffuse 10mL Swish and Uni vers chloride-so 6-28 high grade spit 10 mL ity of dium 00:00: B-cell every 6 [place] bicarbonate 00 lymphoma (six) MD (SALT AND hours. Use Jay rso SODA) 2 n mouthwash teaspoonfu Canc er ls and Center dissolve in 1 quart (960 mL) of warm water. To prevent mouth sores ondansetron Yes Diffuse 8mg Take 1 U nivers (Zofran) 8 6-28 high grade tablet (8 ity of mg tablet 00:00: B-cell mg) [place] 00 lymphoma mouth MD every 8 [place] (eight) n hours as Cancer needed for Center nausea or vomiting (first choice). prochlorper Yes Diffuse 5mg Take 1 U nivers azine 6-28 high grade tablet (5 ity of (Compazine) 00:00: B-cell mg[place] by [place] 5 mg tablet 00 lymphoma mouth MD every 6 [place] (six) n hours as Cancer needed for Center nausea or vomiting. valACYclovi Yes Diffuse 500mg Take 1 Univers r (VALTREX) 6-28 high grade tablet ity of 500 mg 00:00: B-cell (500 mg) [place] tablet 00 lymphoma by mouth MD daily. To [place] prevent n viral Cancer infections Center . sodium Yes Diffuse 10mL Swish and Uni vers chloride-so 6-28 high grade spit 10 mL ity of dium 00:00: B-cell every 6 [place] bicarbonate 00 lymphoma (six) (SALT AND hours. Use Jay rso SODA) 2 n mouthwash teaspoonfu Canc er ls and Center dissolve in 1 quart (960 mL) of warm water. To prevent mouth sores ondansetron Yes Diffuse 8mg Take 1 U nivers (Zofran) 8 09-21 high grade tablet (8 ity of mg tablet 00:00: B-cell mg) by [place] 00 lymphoma mouth MD every 8 [place] (eight) n hours as Cancer needed for Center nausea or vomiting (first choice). prochlorper Yes Diffuse 5mg Take 1 U nivers azine -28 high grade tablet (5 ity of (Compazine) 00:00: B-cell mg) by [place] 5 mg tablet 00 lymphoma mouth MD every 6 [place] (six) n hours as Cancer needed for Center nausea or vomiting. valACYclovi Yes Diffuse 500mg Take 1 Univers r (VALTREX) 09-21 high grade tablet ity of 500 mg 00:00: B-cell (500 mg) [place] tablet 00 lymphoma by mouth MD daily. To [place] prevent n viral Cancer infections Center . sacubitriL- 2020- No History of 1{tbl} Take 1 Univers valsartan 09-21 myocardial tablet by ity of (ENTRESTO) 00:00: 00:00 infarction mouth [place] 24 mg-26 mg 00 :00 every 12 MD tab per (twelve) Anderso tablet hours. n Hold for Cancer systolic Center blood pressure less than 110mmHg. carvedilol 2020- No History of 3.125mg Take 1 Univers (COREG) 09-21 myocardial tablet ity of 3.125 mg 00:00: 00:00 infarction (3.125 mg) [place] tablet 00 :00 by mouth MD twice Anderso daily. n Hold for Cancer systolic Center blood pressure less than 110 mmHg or heart rate less than 60 bpm furosemide 2020- No History of 40mg Take 1 [facility] (LASIX) 40 09-21 myocardial tablet (40 ity of mg tablet 00:00: 00:00 infarction mg) by [place] 00 :00 mouth MD twice Anderso daily. n Hold for Cancer systolic Center blood pressure less than 110 mmHg sacubitriL- 2020- No History of 1{tbl} Take 1 [facility] valsartan 09-21 myocardial tablet by ity of (ENTRESTO) 00:00: 00:00 infarction mouth [place] 24 mg-26 mg 00 :00 every 12 MD tab per (twelve) Anderso tablet hours. n Hold for Cancer systolic Center blood pressure less than 110mmHg. carvedilol 2020- No History of 3.125mg Take 1 [facility] (COREG) 09-21 myocardial tablet ity of 3.125 mg 00:00: 00:00 infarction (3.125 mg) [place] tablet 00 :00 by mouth MD twice Anderso daily. n Hold for Cancer systolic Center blood pressure less than 110 mmHg or heart rate less than 60 bpm furosemide 2020- No History of 40mg Take 1 [facility] (LASIX) 40 09-21 myocardial tablet (40 ity of mg tablet 00:00: 00:00 infarction mg) by [place] 00 :00 mouth MD twice Anderso daily. n Hold for Cancer systolic Center blood pressure less than 110 mmHg sacubitriL- 2020- No History of 1{tbl} Take 1 [facility] valsartan 09-21 myocardial tablet by ity of (ENTRESTO) 00:00: 00:00 infarction mouth [place] 24 mg-26 mg 00 :00 every 12 MD tab per (twelve) Anderso tablet hours. n Hold for Cancer systolic Center blood pressure less than 110mmHg. carvedilol 2020- No History of 3.125mg Take 1 [facility] (COREG) 09-21 myocardial tablet ity of 3.125 mg 00:00: 00:00 infarction (3.125 mg) [place] tablet 00 :00 by mouth MD twice Anderso daily. n Hold for Cancer systolic Center blood pressure less than 110 mmHg or heart rate less than 60 bpm furosemide 2020- No History of 40mg Take 1 [facility] (LASIX) 40 09-21 myocardial tablet (40 ity of mg tablet 00:00: 00:00 infarction mg) by [place] 00 :00 mouth MD twice Anderso daily. n Hold for Cancer systolic Center blood pressure less than 110 mmHg predniSONE 2020- No Lymphoma 50mg Take 1 [facility] (DELTASONE) 09-16 extent of tablet (50 ity of 50 mg 00:00: 00:00 involvement mg) by [place] tablet 00 :00 not mouth MD specified today Anderso 09/16/20. n Starting Cancer on the day Center of chemothera py take 2 tablets (100 mg) every day for 5 days. predniSONE 0 2020- No Lymphoma 50mg Take 1 [facility] (DELTASONE) 09-16 extent of tablet (50 ity of 50 mg 00:00: 00:00 involvement mg) [place] tablet 00 :00 not mouth MD specified today Anderso 09/16/20. n Starting Cancer on the day Center of chemothera py take 2 tablets (100 mg) every day for 5 days. predniSONE 2020- No Lymphoma 50mg Take 1 [facility] (DELTASONE) 09-16 extent of tablet (50 ity of 50 mg 00:00: 00:00 involvement mg) by [place] tablet 00 :00 not mouth MD specified today Anderso 09/16/20. n Starting Cancer on the day Center of chemothera py take 2 tablets (100 mg) every day for 5 days. traMADoL Yes 50mg Take [address] [facility] (ULTRAM) 50 6-14 by mouth [facility] mg tablet 14:12: every 6 Medic al 04 (six) Center hours as needed for Pain. sacubitriL- Yes 1{tbl} Q.5D Take [address] [facility] [address] valsartan 6-14 tablet by [facility] (Entresto) 14:12: mouth 2 Medi michael 24-26 mg 04 (two) Center Tab times daily. traMADol Yes TAKE 1 [facility] (ULTRAM) 50 6-09 TABLET BY ity of mg tablet 00:00: MOUTH [place] 00 THREE MD TIMES Anderso DAILY n NEEDED FOR Cancer PAIN Center traMADol Yes TAKE 1 [facility] (ULTRAM) 50 6-09 TABLET BY ity of mg tablet 00:00: MOUTH [place] 00 THREE MD TIMES Anderso DAILY n NEEDED FOR Cancer PAIN Center traMADol Yes TAKE 1 [facility] (ULTRAM) 50 6-09 TABLET BY ity of mg tablet 00:00: MOUTH [place] 00 THREE MD TIMES Anderso DAILY n NEEDED FOR Cancer PAIN Center traMADol Yes TAKE 1 [facility] (ULTRAM) 50 6-09 TABLET BY ity of mg tablet 00:00: MOUTH [place] 00 THREE MD TIMES Anderso DAILY n NEEDED FOR Cancer PAIN Center clopidogrel Yes TAKE 1 Univ ers (PLAVIX) 75 4-23 TABLET BY ity of mg tablet 00:00: MOUTH [place] 00 DAILY MD Camryn archuleta [facility] [place] montelukast Yes TAKE 1 Univ ers (SINGULAIR) 4-23 TABLET BY ity of 10 mg 00:00: MOUTH [place] tablet 00 DAILY MD Camryn archuleta [facility] potassium Yes 10meq Take 10 Univ ers chloride 4-23 mEq by ity of (MICRO-K) 00:00: mouth [place] 10 mEq CR 00 daily. MD capsule Hold [facility] serum n potassium Cancer greater Center than 4.5 mEq/L clopidogrel Yes TAKE 1 Univ ers (PLAVIX) 75 4-23 TABLET BY ity of mg tablet 00:00: MOUTH [place] 00 DAILY MD Camryn archuleta [facility] montelukast Yes TAKE 1 Univ ers (SINGULAIR) 4-23 TABLET BY ity of 10 mg 00:00: MOUTH [place] tablet 00 DAILY MD Camryn archuleta [facility] potassium Yes 10meq Take 10 Univ ers chloride 4-23 mEq by ity of (MICRO-K) 00:00: mouth [place] 10 mEq CR 00 daily. MD capsule Hold for [facility] serum n potassium Cancer greater Center than 4.5 mEq/L clopidogrel Yes TAKE 1 Univ ers (PLAVIX) 75 4-23 TABLET BY ity of mg tablet 00:00: MOUTH [place] 00 DAILY MD Camryn archuleta [facility] montelukast Yes TAKE 1 Univ ers (SINGULAIR) 4-23 TABLET BY ity of 10 mg 00:00: MOUTH [place] tablet 00 DAILY MD Camryn archuleta [facility] potassium Yes 10meq Take 10 Univ ers chloride 4-23 mEq by ity of (MICRO-K) 00:00: mouth [place] 10 mEq CR 00 daily. MD capsule Hold for [facility] serum n potassium Cancer greater Center than 4.5 mEq/L clopidogrel Yes TAKE 1 Univ ers (PLAVIX) 75 4-23 TABLET BY ity of mg tablet 00:00: MOUTH [place] 00 DAILY [facility] montelukast Yes TAKE 1 Univ ers (SINGULAIR) 4-23 TABLET BY ity of 10 mg 00:00: MOUTH [place] tablet 00 DAILY [facility] potassium Yes 10meq Take 10 Univ ers chloride 4-23 mEq by ity of (MICRO-K) 00:00: mouth [place] 10 mEq CR 00 daily. capsule Hold for [facility] potassium [facility] than 4.5 mEq/L atorvastati Yes TAKE 1 Univ ers n (LIPITOR) 4-13 TABLET BY ity of 80 mg 00:00: MOUTH [place] tablet 00 DAILY AT [facility] atorvastati Yes TAKE 1 Univ ers n (LIPITOR) 4-13 TABLET BY ity of 80 mg 00:00: MOUTH [place] tablet 00 DAILY AT [facility] atorvastati Yes TAKE 1 Univ ers n (LIPITOR) 4-13 TABLET BY ity of 80 mg 00:00: MOUTH [place] tablet 00 DAILY AT [facility] atorvastati Yes TAKE 1 Univ ers n (LIPITOR) 4-13 TABLET BY ity of 80 mg 00:00: MOUTH [place] tablet 00 DAILY AT [facility] levothyroxi Yes TAKE 1 Univ ers ne 4-08 TABLET BY ity of (SYNTHROID, 00:00: MOUTH [place] LEVOTHROID) 00 DAILY 25 mcg Anderso tablet [place] [address] Yes 5mg Take 5 mg U nivers mg tab 4-08 by mouth ity of 00:00: daily. [place] 00 [facility] levothyroxi Yes TAKE 1 Univ ers ne 4-08 TABLET BY ity of (SYNTHROID, 00:00: MOUTH [place] LEVOTHROID) 00 DAILY 25 mcg Anderso tablet [place] [address] Yes 5mg Take 5 mg U nivers mg tab 4-08 by mouth ity of 00:00: daily. 00 [facility] levothyroxi 2021-0 Yes TAKE 1 Univ ers ne 4-08 TABLET BY ity of (SYNTHROID, 00:00: MOUTH [place] LEVOTHROID) 00 DAILY 25 mcg Anderso tablet n [facility] 5 Yes 5mg Take 5 mg U nivers mg tab 4-08 by mouth ity of 00:00: daily. MD Camryn archule[facility] [place] levothyroxi Yes TAKE 1 Univ ers ne 4-08 TABLET BY ity of (SYNTHROID, 00:00: MOUTH [place] LEVOTHROID) 00 DAILY 25 mcg Anderso tablet n Cancer [facility] 5 Yes 5mg Take 5 mg U nivers mg tab 4-08 by mouth ity of 00:00: daily. MD Camryn archuleta [facility] [place] rOPINIRole Yes 1mg Take 1 mg [facility] (REQUIP) 1 3-24 by mouth 2 ity of mg tablet 00:00: (two) [place] 00 times a MD day as Anderso needed n (restless Cancer legs). [place] rOPINIRole Yes 1mg Take 1 mg [facility] (REQUIP) 1 3-24 by mouth 2 ity of mg tablet 00:00: (two) [place] 00 times a MD day as Anderso needed n (restless Cancer legs). [place] rOPINIRole Yes 1mg Take 1 mg [facility] (REQUIP) 1 3-24 by mouth 2 ity of mg tablet 00:00: (two) [place] 00 times a MD day as Anderso needed n (restless Cancer legs). [place] rOPINIRole Yes 1mg Take 1 mg [facility] (REQUIP) 1 3-24 by mouth 2 ity of mg tablet 00:00: (two) [place] 00 times a MD day as Anderso needed n (restless Cancer legs). [place] aspirin 81 2020-0 2020- No 81mg Take 81 mg [facility] mg EC 04-27 by mouth ity of tablet 00:00: 00:00 daily. [place] 00 :00 MD Camryn archuleta [facility] [place] aspirin 81 2020-0 2020- No 81mg Take 81 mg [facility] mg EC 04-27 by mouth ity of tablet 00:00: 00:00 daily. [place] 00 :00 MD Camryn archuleta [facility] aspirin 81 2020-0 2021- No 81mg Take 81 mg Univers mg EC 04-27 by mouth ity of tablet 00:00: 00:00 daily. [place] 00 :00 MD Camryn archuleta [facility] pantoprazol 2019- Yes 40mg Take 40 mg Univers e 1-04 by mouth ity of (PROTONIX) 00:00: daily with [place] 40 mg EC 00 [facility] Yes 40mg Take 40 mg [facility] e 1-04 by mouth ity of (PROTONIX) 00:00: daily with [place] 40 mg EC 00 breakfast. [facility] Yes 40mg Take 40 mg [facility] e -04 by mouth ity of (PROTONIX) 00:00: daily with [place] 40 mg EC 00 breakfast. [facility]03 Yes 40mg Take 40 mg [facility] e -04 by mouth ity of (PROTONIX) 00:00: daily with [place] 40 mg EC 00 breakfast. [facility]0 Yes 5mg Take 5 mg U nivers ine (XYZAL) 7-16 by mouth ity of 5 MG tablet 00:00: every [place] 00 evening. MD Camryn archuleta [facility] levocetiriz 2020-0 Yes 5mg Take 5 mg U nivers ine (XYZAL) 7-16 by mouth ity of 5 MG tablet 00:00: every [place] 00 evening. MD Camryn archuleta [facility] levocetiriz 2020-0 Yes 5mg Take 5 mg U nivers ine (XYZAL) 7-16 by mouth ity of 5 MG tablet 00:00: every [place] 00 evening. MD Camryn archuleta [facility] levocetiriz 2020-0 Yes 5mg Take 5 mg U nivers ine (XYZAL) 7-16 by mouth ity of 5 MG tablet 00:00: every [place] 00 evening. MD Camryn archuleta [facility] albuterol 2019-0 Yes 1{puff} Inhale 1-2 Univers (VENTOLIN 7-11 puffs by ity of HFA,PROAIR 00:00: mouth [place] HFA) 90 00 every 6 MD mcg/puff (six) Anderso inhaler hours as n needed for Cancer wheezing Center or shortness of breath. albuterol 2020-0 Yes 1{puff} Inhale 1-2 [facility] (VENTOLIN 7-11 puffs by ity of HFA,PROAIR 00:00: mouth [place] HFA) 90 00 every 6 MD mcg/puff (six) Anderso inhaler hours as n needed for Cancer wheezing Center or shortness of breath. albuterol 2020-0 Yes 1{puff} Inhale 1-2 [facility] (VENTOLIN 7-11 puffs by ity of HFA,PROAIR 00:00: mouth [place] HFA) 90 00 every 6 MD mcg/puff (six) Anderso inhaler hours as n needed for Cancer wheezing Center or shortness of breath. albuterol 2020-0 Yes 1{puff} Inhale 1-2 [facility] (VENTOLIN 7-11 puffs by ity of HFA,PROAIR 00:00: mouth [place] HFA) 90 00 every 6 MD mcg/puff (six) Anderso inhaler hours as n needed for Cancer wheezing Center or shortness of breath. tiotropium 2020-0 Yes [id number] 18ug Inhale 1 [facility] (SPIRIVA 4-16 capsule ity of WITH 00:00: daily. [place] HANDIHALER) 00 Medical 18 mcg Branch inhalation tiotropium 2020-0 Yes [id number] 18ug Inhale 1 [facility] (SPIRIVA 4-16 capsule ity of WITH 00:00: daily. [place] HANDIHALER) 00 Medical 18 mcg Branch inhalation tiotropium 2020-0 Yes [id number] 18ug Inhale 1 [facility] (SPIRIVA 4-16 capsule ity of WITH 00:00: daily. [place] HANDIHALER) 00 Medical 18 mcg Branch inhalation tiotropium 2020-0 Yes [id number] 18ug Inhale 1 [facility] (SPIRIVA 4-16 capsule ity of WITH 00:00: daily. [place] HANDIHALER) 00 Medical 18 mcg Branch inhalation tiotropium 2020-0 Yes [id number] 18ug Inhale 1 [facility] (SPIRIVA 4-16 capsule ity of WITH 00:00: daily. [place] HANDIHALER) 00 Medical 18 mcg Branch inhalation tiotropium 2020-0 Yes [id number] 18ug Inhale 1 [facility] (SPIRIVA 4-16 capsule ity of WITH 00:00: daily. [place] HANDIHALER) 00 Medical 18 mcg Branch inhalation pantoprazol 2020-0 Yes [id number] 40mg Take 1 Univers e 1-30 tablet by ity of (PROTONIX) 00:00: mouth [place] 40 mg EC 00 daily. Medical tablet Branch pantoprazol 2020-0 Yes [id number] 40mg Take 1 Univers e 1-30 tablet by ity of (PROTONIX) 00:00: mouth [place] 40 mg EC 00 daily. Medical tablet Branch pantoprazol 2020-0 Yes [id number] 40mg Take 1 Univers e 1-30 tablet by ity of (PROTONIX) 00:00: mouth [place] 40 mg EC 00 daily. Medical tablet Branch fluticasone 2020-0 Yes 2{spray Use 2 [facility] [place] propionate 1-30 } Sprays in ity of 50 00:00: each [place] mcg/actuati 00 nostril Medic al on nasal daily. Branch spray pantoprazol 2020-0 Yes [id number] 40mg Take 1 [facility] e 1-30 tablet by ity of (PROTONIX) 00:00: mouth [place] 40 mg EC 00 daily. Medical tablet Branch fluticasone 2020-0 Yes 2{spray Use 2 [facility] [place] propionate 1-30 } Sprays in ity of 50 00:00: each [place] mcg/actuati 00 nostril Medic al on nasal daily. Branch spray pantoprazol 2020-0 Yes [id number] 40mg Take 1 Univers e 1-30 tablet by ity of (PROTONIX) 00:00: mouth [place] 40 mg EC 00 daily. Medical tablet Branch fluticasone 2020-0 Yes 2{spray Use 2 [facility] [place] propionate 1-30 } Sprays in ity of 50 00:00: each [place] mcg/actuati 00 nostril Medic al on nasal daily. Branch spray pantoprazol 2020-0 Yes [id number] 40mg Take 1 Univers e 1-30 tablet by ity of (PROTONIX) 00:00: mouth [place] 40 mg EC 00 daily. Medical tablet Branch fluticasone 2020-0 Yes 2{spray Use 2 [facility] [place] propionate 1-30 } Sprays in ity of 50 00:00: each [place] mcg/actuati 00 nostril Medic al on nasal daily. Branch spray pantoprazol 2020-0 Yes [id number] 40mg Take 1 Univers e 1-30 tablet by ity of (PROTONIX) 00:00: mouth [place] 40 mg EC 00 daily. Medical tablet Branch fluticasone 2020-0 Yes 2{spray Use 2 [facility] [place] propionate 1-30 } Sprays in ity of 50 00:00: each [place] mcg/actuati 00 nostril Medic al on nasal daily. Branch spray pantoprazol 2020-0 Yes [id number] 40mg Take 1 Univers e 1-30 tablet by ity of (PROTONIX) 00:00: mouth [place] 40 mg EC 00 daily. Medical tablet Branch fluticasone 2020-0 Yes 2{spray Use 2 [facility] [place] propionate 1-30 } Sprays in ity of 50 00:00: each [place] mcg/actuati 00 nostril Medic al on nasal daily. Branch spray pantoprazol 2020-0 Yes [id number] 40mg Take 1 Univers e 1-30 tablet by ity of (PROTONIX) 00:00: mouth [place] 40 mg EC 00 daily. Medical tablet Branch fluticasone 2020-0 Yes 2{spray Use 2 [facility] [place] propionate 1-30 } Sprays in ity of 50 00:00: each [place] mcg/actuati 00 nostril Medic al on nasal daily. Branch spray fluticasone 2019-0 Yes [id number] 1{puff} Inhale 1 Univers -salmeterol 5-23 Puff every it y of (ADVAIR 00:00: 12 [place] DISKUS) 00 (twelve) Medical 250-50 hours. Branch mcg/dose inhalation disk fluticasone 2019-0 Yes [id number] 1{puff} Inhale 1 Univers -salmeterol 5-23 Puff every it y of (ADVAIR 00:00: 12 [place] DISKUS) 00 (twelve) Medical 250-50 hours. Branch mcg/dose inhalation disk fluticasone 2019-0 Yes [id number] 1{puff} Inhale 1 Univers -salmeterol 5-23 Puff every it y of (ADVAIR 00:00: 12 [place] DISKUS) 00 (twelve) Medical 250-50 hours. Branch mcg/dose inhalation disk fluticasone 2019-0 Yes [id number] 1{puff} Inhale 1 [facility] -salmeterol 5-23 Puff every it y of (ADVAIR 00:00: 12 [place] DISKUS) 00 (twelve) Medical 250-50 hours. Branch mcg/dose inhalation disk fluticasone 2019-0 Yes [id number] 1{puff} Inhale 1 [facility] -salmeterol 5-23 Puff every it y of (ADVAIR 00:00: 12 [place] DISKUS) 00 (twelve) Medical 250-50 hours. Branch mcg/dose inhalation disk fluticasone 2019-0 Yes [id number] 1{puff} Inhale 1 Univers -salmeterol 5-23 Puff every it y of (ADVAIR 00:00: 12 [place] DISKUS) 00 (twelve) Medical 250-50 hours. Branch mcg/dose inhalation disk fluticasone 2019-0 Yes [id number] 1{puff} Inhale 1 Univers -salmeterol 5-23 Puff every it y of (ADVAIR 00:00: 12 [place] DISKUS) 00 (twelve) Medical 250-50 hours. Branch mcg/dose inhalation disk fluticasone 2019-0 Yes [id number] 1{puff} Inhale 1 [facility] -salmeterol 5-23 Puff every it y of (ADVAIR 00:00: 12 [place] DISKUS) 00 (twelve) Medical 250-50 hours. Branch mcg/dose inhalation disk fluticasone 2019-0 Yes [id number] 1{puff} Inhale 1 [facility] -salmeterol 5-23 Puff every it y of (ADVAIR 00:00: 12 [place] DISKUS) 00 (twelve) Medical 250-50 hours. Branch mcg/dose inhalation disk fluticasone 2019-0 Yes [id number] 1{puff} Inhale 1 [facility] -salmeterol 5-23 Puff every it y of (ADVAIR 00:00: 12 [place] DISKUS) 00 (twelve) Medical 250-50 hours. Branch mcg/dose inhalation disk fluticasone 2019-0 Yes [id number] 1{puff} Inhale 1 [facility] -salmeterol 5-23 Puff every it y of (ADVAIR 00:00: 12 [place] DISKUS) 00 (twelve) Medical 250-50 hours. Branch mcg/dose inhalation disk fluticasone 2019-0 Yes [id number] 1{puff} Inhale 1 [facility] -salmeterol 5-23 Puff every it y of (ADVAIR 00:00: 12 [place] DISKUS) 00 (twelve) Medical 250-50 hours. Branch mcg/dose inhalation disk fluticasone 2019-0 Yes [id number] 1{puff} Inhale 1 [facility] -salmeterol 5-23 Puff every it y of (ADVAIR 00:00: 12 [place] DISKUS) 00 (twelve) Medical 250-50 hours. Branch mcg/dose inhalation disk fluticasone 2019-0 Yes [id number] 1{puff} Inhale 1 [facility] -salmeterol 5-23 Puff every it y of (ADVAIR 00:00: 12 [place] DISKUS) 00 (twelve) Medical 250-50 hours. Branch mcg/dose inhalation disk fluticasone 2019-0 Yes [id number] 1{puff} Inhale 1 [facility] -salmeterol 5-23 Puff every it y of (ADVAIR 00:00: 12 [place] DISKUS) 00 (twelve) Medical 250-50 hours. Branch mcg/dose inhalation disk fluticasone 2019-0 Yes [id number] 1{puff} Inhale 1 Univers -salmeterol 5-23 Puff every it y of (ADVAIR 00:00: 12 [place] DISKUS) 00 (twelve) Medical 250-50 hours. Branch mcg/dose inhalation disk clopidogrel 2017- Yes TK 1 T PO U nivers 75 mg 0-11 QD ity of tablet 00:00: [place] 00 [facility] clopidogrel 2017- Yes TK 1 T PO U nivers 75 mg 0-11 QD ity of tablet 00:00: [place] 00 [facility] clopidogrel 2017- Yes TK 1 T PO U nivers 75 mg 0-11 QD ity of tablet 00:00: [place] 00 [facility] clopidogrel 2017- Yes TK 1 T PO U nivers 75 mg 0-11 QD ity of tablet 00:00: [place] 00 [facility] clopidogrel 2017- Yes TK 1 T PO U nivers 75 mg 0-11 QD ity of tablet 00:00: [place] 00 [facility] clopidogrel 2017- Yes TK 1 T PO U nivers 75 mg 0-11 QD ity of tablet 00:00: [place] 00 [facility] clopidogrel 2017- Yes TK 1 T PO U nivers 75 mg 0-11 QD ity of tablet 00:00: [place] 00 [facility] clopidogrel 2017- Yes TK 1 T PO U nivers 75 mg 0-11 QD ity of tablet 00:00: [place] [facility] clopidogrel 2017- Yes TK 1 T PO U nivers 75 mg 0-11 QD ity of tablet 00:00: [place] [facility] clopidogrel 2017- Yes TK 1 T PO U nivers 75 mg 0-11 QD ity of tablet 00:00: [place] [facility] clopidogrel 2017 Yes TK 1 T PO U nivers 75 mg 0-11 QD ity of tablet 00:00: [place] [facility] clopidogrel 2017 Yes TK 1 T PO U nivers 75 mg 0-11 QD ity of tablet 00:00: [place] [facility] clopidogrel 2017 Yes TK 1 T PO U nivers 75 mg 0-11 QD ity of tablet 00:00: [place] [facility] clopidogrel 2017 Yes TK 1 T PO U nivers 75 mg 0-11 QD ity of tablet 00:00: [place] [facility] clopidogrel 2017 Yes TK 1 T PO U nivers 75 mg 0-11 QD ity of tablet 00:00: [place] [facility] clopidogrel 2017- Yes TK 1 T PO U nivers 75 mg 0-11 QD ity of tablet 00:00: [place] [facility] aspirin 81 2017-0 Yes TK 1 T PO Un [place] mg EC 9-29 D ity of tablet 00:00: [place] [facility] aspirin 81 2017-0 Yes TK 1 T PO Un [place] mg EC 9-29 D ity of tablet 00:00: [place] [facility] aspirin 81 2017-0 Yes TK 1 T PO Un [place] mg EC 9-29 D ity of tablet 00:00: [place] [facility] aspirin 81 2017-0 Yes TK 1 T PO Un [place] mg EC 9-29 D ity of tablet 00:00: [place] [facility] aspirin 81 2017-0 Yes TK 1 T PO Un [place] mg EC 9-29 D ity of tablet 00:00: [place] [facility] aspirin 81 2017-0 Yes TK 1 T PO Un [place] mg EC 9-29 D ity of tablet 00:00: [place] [facility] Branch aspirin 81 2017-0 Yes TK 1 T PO Un [place] mg EC 9-29 D ity of tablet 00:00: [place] [facility] aspirin 81 2017-0 Yes TK 1 T PO Un [place] mg EC 9-29 D ity of tablet 00:00: [place] [address] Medical Branch aspirin 81 2017- Yes TK 1 T PO Un [facility] mg EC 9 D ity of tablet 00:00: [place] [facility] aspirin 81 2017- Yes TK 1 T PO Un [place] mg EC 12-23 D ity of tablet 00:00: [place] [facility] aspirin 81 2017- Yes TK 1 T PO Un [place] mg EC 12-23 D ity of tablet 00:00: [place] [facility] aspirin 81 2017- Yes TK 1 T PO Un [place] mg EC 12-23 D ity of tablet 00:00: [place] [facility] aspirin 81 2017- Yes TK 1 T PO Un [place] mg EC 12-23 D ity of tablet 00:00: [place] [facility] aspirin 81 2017- Yes TK 1 T PO Un [place] mg EC 12-23 D ity of tablet 00:00: [place] [facility] aspirin 81 2017 Yes TK 1 T PO Un [place] mg EC 12-23 D ity of tablet 00:00: [place] [facility] aspirin 81 2017 Yes TK 1 T PO Un [place] mg EC 12-23 D ity of tablet 00:00: [place] [facility] traMADOL 50 2017 Yes TK 1 T PO U nivers mg tablet 8-18 TID PRN ity of 00:00: [place] [facility] traMADOL 50 Yes TK 1 T PO U nivers mg tablet 8-18 TID PRN ity of 00:00: [place] [facility] traMADOL 50 Yes TK 1 T PO U nivers mg tablet 8-18 TID PRN ity of 00:00: [place] [facility] traMADOL 50 Yes TK 1 T PO U nivers mg tablet 8-18 TID PRN ity of 00:00: [place] [facility] traMADOL 50 Yes TK 1 T PO U nivers mg tablet 8-18 TID PRN ity of 00:00: [place] [facility] traMADOL 50 Yes TK 1 T PO U nivers mg tablet 8-18 TID PRN ity of 00:00: [place] [facility] traMADOL 50 Yes TK 1 T PO U nivers mg tablet 8-18 TID PRN ity of 00:00: [place] [facility] traMADOL 50 Yes TK 1 T PO U nivers mg tablet 8-18 TID PRN ity of 00:00: [place] [facility] traMADOL 50 Yes TK 1 T PO U nivers mg tablet 8-18 TID PRN ity of 00:00: [place] [facility] traMADOL 50 Yes TK 1 T PO U nivers mg tablet 8-18 TID PRN ity of 00:00: [place] [facility] traMADOL 50 Yes TK 1 T PO U nivers mg tablet 8-18 TID PRN ity of 00:00: [place] [facility] traMADOL 50 Yes TK 1 T PO U nivers mg tablet 8-18 TID PRN ity of 00:00: [place] [facility] traMADOL 50 Yes TK 1 T PO U nivers mg tablet 8-18 TID PRN ity of 00:00: [place] [facility] traMADOL 50 Yes TK 1 T PO U nivers mg tablet 8-18 TID PRN ity of 00:00: [place] [facility] traMADOL 50 Yes TK 1 T PO U nivers mg tablet 8-18 TID PRN ity of 00:00: [place] [facility] traMADOL 50 Yes TK 1 T PO U nivers mg tablet 8-18 TID PRN ity of 00:00: [place] [facility] metoprolol Yes TK 1 T PO Un [facility] succinate 8-09 QD ity of XL 25 mg 24 00:00: [facility] tablet Medical [place] torsemide Yes 10mg Take 10 mg Un [place] 10 mg 8-09 by mouth ity of tablet 00:00: daily. [place] [facility] atorvastati Yes TK 1 T PO U nivers n 40 mg 8-09 QD ity of tablet 00:00: [place] [facility] metoprolol Yes TK 1 T PO Un [place] succinate 8-09 QD ity of XL 25 mg 24 00:00: [place] hr tablet [facility] torsemide Yes 10mg Take 10 mg Un [place] 10 mg 8-09 by mouth ity of tablet 00:00: daily. [place] [facility] atorvastati Yes TK 1 T PO U nivers n 40 mg 8-09 QD ity of tablet 00:00: [facility] metoprolol [id number] Yes TK 1 T PO Un [place] succinate 8-09 QD ity of XL 25 mg 24 00:00: [place] hr tablet [facility] torsemide [id number] Yes 10mg Take 10 mg Un [facility] 10 mg 8-09 by mouth ity of tablet 00:00: daily. [facility] atorvastati 2017 Yes TK 1 T PO U nivers n 40 mg 8-09 QD ity of tablet 00:00: [facility] metoprolol 2017 Yes TK 1 T PO Un [place] succinate 8-09 QD ity of XL 25 mg 24 00:00: [place] hr tablet [facility] torsemide [id number] Yes 10mg Take 10 mg Un [place] 10 mg 8-09 by mouth ity of tablet 00:00: daily. [facility] atorvastati Yes TK 1 T PO U nivers n 40 mg 8-09 QD ity of tablet 00:00: [place] [facility] metoprolol 2017 Yes TK 1 T PO Un osvaldo succinate 8-09 QD ity of XL 25 mg 24 00:00: [place] hr tablet [facility] torsemide [address] Yes 10mg Take 10 mg Un osvaldo 10 mg 8-09 by mouth ity of tablet 00:00: daily. [facility] atorvastati Yes TK 1 T PO U nivers n 40 mg 8-09 QD ity of tablet 00:00: [place] [facility] metoprolol 2017 Yes TK 1 T PO Un osvaldo succinate 8-09 QD ity of XL 25 mg 24 00:00: [place] hr tablet [facility] torsemide 2017-0 Yes 10mg Take 10 mg Un osvaldo 10 mg 8-09 by mouth ity of tablet 00:00: daily. [facility] atorvastati Yes TK 1 T PO U nivers n 40 mg 8-09 QD ity of tablet 00:00: [place] [facility] metoprolol 2017 Yes TK 1 T PO Un osvaldo succinate 8-09 QD ity of XL 25 mg 24 00:00: [place] hr tablet [facility] torsemide [address] Yes 10mg Take 10 mg Un osvaldo 10 mg 8-09 by mouth ity of tablet 00:00: daily. [facility] atorvastati 2017 Yes TK 1 T PO U nivers n 40 mg 8-09 QD ity of tablet 00:00: [facility] atorvastati Yes TK 1 T PO U nivers n 40 mg 8-09 QD ity of tablet 00:00: [facility] metoprolol 2017 Yes TK 1 T PO Un osvaldo succinate 8-09 QD ity of XL 25 mg 24 00:00: [place] hr tablet [facility] torsemide 2017 Yes 10mg Take 10 mg Un osvaldo 10 mg 8-09 by mouth ity of tablet 00:00: daily. [facility] atorvastati Yes TK 1 T PO U nivers n 40 mg 8-09 QD ity of tablet 00:00: [facility] metoprolol Yes TK 1 T PO Un osvaldo succinate 8-09 QD ity of XL 25 mg 24 00:00: [place] hr tablet [facility] torsemide Yes 10mg Take 10 mg Un osvaldo 10 mg 8-09 by mouth ity of tablet 00:00: daily. [facility] metoprolol Yes TK 1 T PO Un osvaldo succinate 8-09 QD ity of XL 25 mg 24 00:00: [place] hr tablet [facility] atorvastati Yes TK 1 T PO U nivers n 40 mg 8-09 QD ity of tablet 00:00: [facility] metoprolol Yes TK 1 T PO Un osvaldo succinate 8-09 QD ity of XL 25 mg 24 00:00: [place] hr tablet [facility] torsemide Yes 10mg Take 10 mg Un osvaldo 10 mg 8-09 by mouth ity of tablet 00:00: daily. [facility] torsemide Yes 10mg Take 10 mg Un osvaldo 10 mg 8-09 by mouth ity of tablet 00:00: daily. [facility] atorvastati Yes TK 1 T PO U nivers n 40 mg 8-09 QD ity of tablet 00:00: [facility] metoprolol Yes TK 1 T PO Un osvaldo succinate 8-09 QD ity of XL 25 mg 24 00:00: [place] hr tablet [facility] torsemide Yes 10mg Take 10 mg Un osvaldo 10 mg 8-09 by mouth ity of tablet 00:00: daily. [facility] atorvastati Yes TK 1 T PO U nivers n 40 mg 8-09 QD ity of tablet 00:00: [facility] metoprolol 2017 Yes TK 1 T PO Un osvaldo succinate 8-09 QD ity of XL 25 mg 24 00:00: [place] hr tablet [facility] torsemide Yes 10mg Take 10 mg Un osvaldo 10 mg 8-09 by mouth ity of tablet 00:00: daily. [facility] atorvastati Yes TK 1 T PO U nivers n 40 mg 8-09 QD ity of tablet 00:00: [facility] metoprolol Yes TK 1 T PO Un osvaldo succinate 8-09 QD ity of XL 25 mg 24 00:00: [place] hr tablet [facility] torsemide Yes 10mg Take 10 mg Un osvaldo 10 mg 8-09 by mouth ity of tablet 00:00: daily. [facility] atorvastati Yes TK 1 T PO U nivers n 40 mg 8-09 QD ity of tablet 00:00: [facility] metoprolol Yes TK 1 T PO Un osvaldo succinate 8-09 QD ity of XL 25 mg 24 00:00: [place] hr tablet [facility] torsemide Yes 10mg Take 10 mg Un osvaldo 10 mg 8-09 by mouth ity of tablet 00:00: daily. [facility] atorvastati Yes TK 1 T PO U nivers n 40 mg 8-09 QD ity of tablet 00:00: [facility] metoprolol Yes TK 1 T PO Un osvaldo succinate 8-09 QD ity of XL 25 mg 24 00:00: [place] hr tablet [facility] torsemide Yes 10mg Take 10 mg Un osvaldo 10 mg 8-09 by mouth ity of tablet 00:00: daily. [facility] atorvastati Yes TK 1 T PO U nivers n 40 mg 8-09 QD ity of tablet 00:00: [facility] levothyroxi Yes TK 1 T PO U nivers ne 25 mcg 8-08 QD ity of tablet 00:00: [place] [facility] levothyroxi 2017-0 Yes TK 1 T PO U nivers ne 25 mcg 8-08 QD ity of tablet 00:00: [place] [facility] levothyroxi 2017-0 Yes TK 1 T PO U nivers ne 25 mcg 8-08 QD ity of tablet 00:00: [place] [facility] levothyroxi [address]70 Yes TK 1 T PO U nivers ne 25 mcg 8-08 QD ity of tablet 00:00: [place] [facility] levothyroxi 2017-0 Yes TK 1 T PO U nivers ne 25 mcg 8-08 QD ity of tablet 00:00: [place] [facility] levothyroxi 20170 Yes TK 1 T PO U nivers ne 25 mcg 8-08 QD ity of tablet 00:00: [place] [facility] levothyroxi 2017 Yes TK 1 T PO U nivers ne 25 mcg 8-08 QD ity of tablet 00:00: [place] [facility] levothyroxi 2017-0 Yes TK 1 T PO U nivers ne 25 mcg 8-08 QD ity of tablet 00:00: [place] [facility] levothyroxi 20170 Yes TK 1 T PO U nivers ne 25 mcg 8-08 QD ity of tablet 00:00: [place] [facility] levothyroxi 2017-0 Yes TK 1 T PO U nivers ne 25 mcg 8-08 QD ity of tablet 00:00: [place] [facility] levothyroxi 20170 Yes TK 1 T PO U nivers ne 25 mcg 8-08 QD ity of tablet 00:00: [place] [facility] levothyroxi 2017-0 Yes TK 1 T PO U nivers ne 25 mcg 8-08 QD ity of tablet 00:00: [place] [facility] levothyroxi 2017-0 Yes TK 1 T PO U nivers ne 25 mcg 8-08 QD ity of tablet 00:00: [place] [facility] levothyroxi 2017-0 Yes TK 1 T PO U nivers ne 25 mcg 8-08 QD ity of tablet 00:00: [place] [facility] levothyroxi 20170 Yes TK 1 T PO U nivers ne 25 mcg 8-08 QD ity of tablet 00:00: [place] [facility] levothyroxi 2017-0 Yes TK 1 T PO U nivers ne 25 mcg 8-08 QD ity of tablet 00:00: [address] lisinopril Yes 2.5 mg = 1 M emoria 2.5 mg oral 4-06 tab, PO, l tablet 13:46: Daily, # [place] 00 30 tab, 0 Refill(s) AMIODarone Yes [...] tab, PO, l tablet 13:46: Daily, # [place] 00 30 tab, 0 Refill(s) lisinopril 2017 Yes 2.5 mg = 1 M emoria 2.5 mg oral 4-06 tab, PO, l tablet 13:46: Daily, # [place] 00 30 tab, 0 Refill(s) AMIODarone Yes [...] l mcg-50 mcg 13:46: , BID, # cazares inhalation 00 60 puff, 0 powder [...] extended 00 30 tab, 0 release Refill(s) aspirin 81 2017 Yes 81 mg [...] Tablet # 14 tab, [Mucinex] 0 Refill(s) clopidogrel Yes 75 mg = 1 M emoria 75 mg oral 4-06 tab, PO, l tablet 13:46: Daily, # [place] 00 30 tab, 0 Refill(s) atorvastati Yes 40 mg = 1 M emoria n 40 mg 4-06 tab, PO, l oral tablet 13:46: Bedtime, # [place] 00 30 tab, 0 Refill(s) aspirin 81 [...] ia 4-06 (Same as: l 12:15: Cordarone) Amiodarone No Notes: Memor ia 4-06 (Same as: l 12:15: Cordarone) torsemide No Notes: Memori a 4-05 (Same As: l 14:00: Demadex) torsemide No Notes: Memori a 4-05 (Same As: l 14:00: Demadex) Amiodarone No Notes: Memor ia 4-04 (Same as: l 14:06: Cordarone) Amiodarone No Notes: Memor ia 4-04 (Same as: l 14:06: Cordarone) metoprolol No Notes: Memor ia extended 4-04 (Same as: l release 14:00: Toprol XL) Herm jigna Do Not Crush metoprolol No Notes: Memor ia extended 4-04 (Same as: l release 14:00: Toprol XL) Herm jigna Do Not Crush atorvastati No Notes: Danilo jerry n 4-04 (Same as: l 02:00: Lipitor) atorvastati No Notes: Danilo jerry n 4-04 (Same as: l 02:00: Lipitor) [place] 00 chlorhexidi No Notes: Danilo jerry ne 4-03 (Same As: l gluconate 14:00: Hibiclens) He rmann 40 MG/ML 00 Medicated Liquid Soap chlorhexidi No Notes: Danilo jerry ne 4-03 (Same As: l gluconate 14:00: Hibiclens) He rmann 40 MG/ML 00 Medicated Liquid Soap Glucagon No 1 mg, Memoria 06-26 Route: IM, l 15:21: Drug form: Ty PDR/INJ, PRN, Dosing Weight [...] from ____Date Glucagon No 1 mg, Memoria 06-26 Route: IM, l 15:21: Drug form: [place] 00 PDR/INJ, PRN, Dosing Weight 103.653, kg, PRN Blood Glucose Results, Start date: 06/26/16 10:21:00 CDT, Duration: 30 day, Stop date: 07/26/16 10:20:00 CDT Dextrose 2016-0 No 25 gm, 50 Danilo jerry 50% Syringe 4-02 mL, Route: l 15:21: IVP, Drug Form: INJ, Dosing Weight 103.653, kg, PRN, PRN Blood Glucose Results, Start date: 06/26/16 10:21:00 CDT, Duration: 30 day, Stop date: 07/26/16 10:20:00 CDT Insulin, No Notes: Memoria Aspart, 06-26 Roll in l Human 15:21: palms of [place] 00 hands gently; Do not shake vigorously [...] (Same as: Albuminar) "blood product derivative " Lasix No Notes: Memoria 06-26 (Same as: l 12:30: Lasix) Ty 00 albumin No Notes: Memoria human 5% 06-26 LOT#: l intravenous 12:30: Ty solution 00 ___ Mfg: WASTE: F/P - Red; E -Red (Same as: Albuminar) "blood product derivative " glucagon No 1 mg, Memoria 06-26 Route: l 03:17: INJ, Drug form: PDR/INJ, PRN, PRN Blood Glucose Results, [...] temperatur e. Expires in days from ____Date glucagon No 1 mg, Memoria 06-26 Route: l 03:17: INJ, Drug Ty form: PDR/INJ, PRN, PRN Blood Glucose Results, [...] n 06-26 (Same As: l 02:00: Lipitor) atorvastati No Notes: Danilo jerry n 06-26 (Same As: l 02:00: Lipitor) Ty 00 Lovenox No Notes: Memoria 06-26 (Same as: l 01:00: Lovenox) [place] Lovenox No Notes: Memoria 4-02 (Same as: l 01:00: Lovenox) [place] 00 Dilaudid 2017- No 0.5 mg, Memori a 4-01 0.5 mL, l 23:54: Route: Ty 00 IVP, Drug form: INJ, ONCE, Dosing Weight 103.653, kg, Priority: STAT, Start date: 06/25/16 18:54:00 CDT, Stop date: 06/25/16 18:54:00 CDT Dilaudid 2017- No 0.5 mg, Memori a 4-01 0.5 mL, l 23:54: Route: [place] 00 IVP, Drug form: INJ, ONCE, Dosing Weight 103.653, kg, Priority: STAT, Start date: 06/25/16 18:54:00 CDT, Stop date: 06/25/16 18:54:00 CDT pantoprazol No Notes: Danilo jerry e 4-01 Tablet l 14:00: should not Ty 00 be chewed or crushed. (Same as: Protonix) Mupirocin No 1 appl, Memor ia 0.02 MG/MG 06-25 Route: l Topical 14:00: NASAL, [place] Ointment 00 BID, Drug form: OINT, Start date: 06/25/16 9:00:00 CDT, Duration: 5 day, Stop date: 06/29/16 17:00:00 CDT clopidogrel No Notes: Danilo jerry 4- (Same As: l 14:00: Plavix) Ty Aspirin 325 No 325 mg, Mem oria MG Enteric 06-25 Route: PO, l Coated 14:00: Drug form: Soumya nn Tablet 00 ECTAB, Daily, Dosing Weight 102.926, kg, Start date: 06/25/16 9:00:00 CDT, Duration: 30 day, Stop date: 07/24/16 9:00:00 CDT pantoprazol 0 No Notes: Danilo jerry e 4-01 Tablet l 14:00: should not [place] 00 be chewed or crushed. (Same as: Protonix) Mupirocin No 1 appl, Memor ia 0.02 MG/MG 06-25 Route: l Topical 14:00: NASAL, Ty Ointment 00 BID, Drug form: OINT, Start date: 06/25/16 9:00:00 CDT, Duration: 5 day, Stop date: 06/29/16 17:00:00 CDT clopidogrel No Notes: Danilo jerry 4- (Same As: l 14:00: Plavix) Ty Aspirin 325 2016- No 325 mg, Mem oria MG Enteric 06-25 Route: PO, l Coated 14:00: Drug form: Soumya nn Tablet 00 ECTAB, Daily, Dosing Weight 102.926, kg, Start date: 06/25/16 9:00:00 CDT, Duration: 30 day, Stop date: 07/24/16 9:00:00 CDT heparin No Notes: Memoria 4-01 porcine l 13:00: heparin [place] 00 heparin No Notes: Memoria 4-01 porcine l 13:00: heparin Yt 00 vancomycin No 2001 mg: Me moria 4-01 infuse l 06:30: over 2.5 [place] 00 hours vancomycin No 2001 mg: Me moria 4-01 infuse l 06:30: over 2.5 [place] 00 hours cefuroxime No Notes: Memor ia + sodium 4-01 (Same As: l chloride 06:00: Kefurox, [place]mya nn 0.9% INJ Zinacef) 100 mL MEDICATION WASTE Product Size: 1500 mg Product Wasted: ___ mg cefuroxime No Notes: Memor ia + sodium 4-01 (Same As: l chloride 06:00: Kefurox, Soumy[place] nn 0.9% INJ Zinacef) 100 mL MEDICATION WASTE Product Size: 1500 mg Product Wasted: ___ mg Vancomycin No 1,554.795 Me moria 4-01 mg, Route: l 02:00: IVPB, Drug [place] form: INJ, Q12H, Dosing Weight 103.653, kg, Time Critical Medication , Start date: 06/24/16 21:00:00 CDT, Duration: 2 doses or times, Stop date: 06/25/16 9:00:00 CDT chlorhexidi 2017-0 No Notes: Danilo jerry ne 4-01 (Same As: l gluconate 02:00: Peridex) Herm jigna 1.2 MG/ML Mouthwash Aspirin 325 No Notes: Danilo jerry MG Oral 4-01 Take with l Tablet 02:00: food. Vancomycin No 1,554.795 Me moria 4-01 mg, [...] Size: 1 mg Product Wasted: ___ mg EPINEPHrine No Notes: Danilo jerry 4 mg + 3-31 (Same as: l sodium 23:38: Adrenalin) Soumya nn chloride 00 Suremed - 0.9% INJ Injectable 246 mL drug used as inhalation treatment. MEDICATION WASTE Product Size: 1 mg Product Wasted: ___ mg insulin No Notes: Memoria aspart 3-31 Roll in l 23:37: palms of [place] 00 hands gently; Do not shake vigorously . (Same as: NovoLOG) "single patient use only" WASTE: F/P - Black; E - Municipal Trash Bin Stable for 28 days at room temperatur e. Expires in days from ____Date insulin No Notes: Memoria aspart 3-31 Roll in l 23:37: palms of [place] 00 hands gently; Do not shake vigorously . (Same as: NovoLOG) "single patient use only" WASTE: F/P - Black; E - Municipal Trash Bin Stable for 28 days at room temperatur e. Expires in days from ____Date insulin 2016- No Notes: Memoria aspart 3-31 Roll in l 23:36: palms of [place] 00 hands gently; Do not shake vigorously . (Same as: NovoLOG) "single patient use only" WASTE: F/P - Black; E - Municipal Trash Bin Stable for 28 days at room temperatur e. Expires in days from ____Date insulin 2016- No Notes: Memoria aspart 3- Roll in l 23:36: palms of Ty 00 hands gently; Do not shake vigorously . (Same as: NovoLOG) "single patient use only" WASTE: F/P - Black; E - Municipal Trash Bin Stable for 28 days at room temperatur e. Expires in days from ____Date insulin reg 2016- No Notes: Danilo jerry 100 unit-NS 06-24 [...] Bin albuterol No Notes: SEE Me moria 3-31 RT l 23:16: DOCUMENTAT [place] 00 ION (Same as: Proventil) albuterol No Notes: SEE Me moria 3-31 RT l 23:16: DOCUMENTAT [place] 00 ION (Same as: Proventil) Fentanyl No Notes: Memoria 06-24 Concentrat l 23:00: ion is 20 Ty micrograms /ml metoprolol No Notes: Memor ia tartrate - (Same as: l 23:00: Lopressor) Ty Cefuroxime No Notes: Memor ia 3 (Same As: l 23:00: Kefurox, Ty Zinacef) MEDICATION WASTE Product Size: 1500 mg Product Wasted: ___ mg Fentanyl No Notes: Memoria 3 Concentrat l 23:00: ion is 20 [place] micrograms /ml metoprolol No Notes: Memor ia tartrate 06-24 (Same as: l 23:00: Lopressor) Ty Cefuroxime No Notes: Memor ia 06-24 (Same As: l 23:00: Kefurox, [place] 00 Zinacef) MEDICATION WASTE Product Size: 1500 mg Product Wasted: ___ mg PHOS-NaK No Notes: Memoria 06-24 (Same as: l 22:44: Phos-NaK) 00 Each 1.5 gm pkt has 250mg phosphorou s. Mix w/2.5oz water and stir. potassium No Notes: Memori a phosphate + 06-24 (Same as: l sodium 22:44: K chloride 00 Phosphate. 0.9% INJ ) 1 mMol 250 mL phoshate has 1.47 mEq potassium Infuse over 4 hours Calcium No Notes: Memoria Gluconate 06-24 WASTE: F/P l 22:44: - Sink; E - Municipal Trash Bin Magnesium No Notes: Memori a Oxide 06-24 (Same as: l 22:44: Mag-Ox Ty 00 400) Magnesium oxide 705sh=754s g elemental magnesium Dose=____m g magnesium oxide (___mg elemental magnesium) Magnesium No Notes: Memori a Sulfate - WASTE: F/P l 22:44: - Sink; E [place] 00 - Municipal Trash Bin potassium No Notes: Memori a chloride 3-31 (Same as: l 22:44: Potassium [place] Chloride) Calcium No Notes: Memoria Carbonate 3-31 [...] 3-31 15 mL, l sodium 22:44: Route: [place] chloride 00 IVPB, PRN, 0.9% INJ Dosing 250 mL Weight 103.653, kg, PRN Abnormal Lab Result, Start date: 06/24/16 17:44:00 CDT, Duration: 30 day, Stop date: 07/24/16 17:43:00 CDT, FOR ICU USE ONLY potassium No Notes: Memori a phosphate 3-31 (Same as: l 22:44: K Ty 00 Phosphate) sodium No 15 mmol, Memoria phosphate 3-31 250 mL, l 22:44: Route: [place] 00 IVPB, Drug form: INJ, PRN, Dosing Weight 103.653, kg, PRN Abnormal Lab Result, Start date: 06/24/16 17:44:00 CDT, Duration: 30 day, Stop date: 07/24/16 17:43:00 CDT, FOR ICU USE ONLY Naloxone No Notes: Memoria 3-31 Same as l 22:44: Narcan [place] 00 Saline No Notes: Memoria Flush 0.9% 3-31 (Same as: l 22:44: BD [place] 00 Posiflush) Dulcolax No Notes: Memoria Laxative 06-24 (Same As: l 22:44: Dulcolax, Ty 00 Bisco-Lax) Lactulose No Notes: Memori a 667 MG/ML 06-24 (Same l Oral 22:44: as:Chronul [place] Solution 00 ac) albumin No Notes: Memoria human 5% 06-24 LOT#: l intravenous 22:44: [place] solution 00 ___ Mfg: WASTE: F/P - Red; E -Red (Same as: Albuminar) "blood product derivative " Acetaminoph No Notes: Do M emoria en 300 MG / 06-24 not exceed l Codeine 22:44: 4gm/day of Herm jigna Phosphate 00 acetaminop 30 MG Oral hen. (Same Tablet as: [Tylenol Tylenol with with Codeine #3] Codeine # 3) Zofran No Notes: Memoria 06-24 (Same as: l 22:44: Zofran) [place] MEDICATION WASTE Product Size: 4 mg Product Wasted: ___ mg Xopenex No 1.25 mg, Memori a 06-24 Route: l 22:44: NEB, PRN, Ty 00 Dosing Weight 102.926, kg, PRN Respirator y Protocol, Start date: 06/24/16 17:44:00 CDT, Duration: 30 day, Stop date: 07/24/16 17:43:00 CDT Morphine No Notes: Memoria 06-24 (Same l 22:44: as:MORPhin Ty 00 e Sulfate) Albuterol No Notes: Memori a 0.833 MG/ML 06-24 (Same as: l / 22:44: Duoneb) [place] Ipratropium 00 [place] 0.167 MG/ML Inhalant Solution Glucagon No 1 [...] not exceed l 22:44: 4 gm/day. Ty (Same as: Tylenol) PHOS-NaK No Notes: Memoria 06-24 (Same as: [...] WASTE: F/P l 22:44: - Sink; E - Municipal Trash Bin Magnesium No Notes: Memori a Oxide 06-24 (Same as: l 22:44: Mag-Ox [place] 00 400) Magnesium oxide 450zt=218u g elemental magnesium Dose=____m g magnesium oxide (___mg elemental magnesium) Magnesium No Notes: Memori a Sulfate 06-24 WASTE: F/P l 22:44: - Sink; E Ty 00 - Municipal Trash Bin potassium No Notes: Memori a chloride 3-31 (Same as: l 22:44: Potassium Ty Chloride) Calcium No Notes: Memoria Carbonate 06-24 (Same As: l 500 MG 22:44: Tums) [place] Chewable 00 Calcium Tablet Carbonate 500 mg = 200 mg elemental calcium Dose = mg calcium carbonate ( mg elemental calcium) Insulin, No Notes: Memoria Aspart, 06-24 Roll in l Human 22:44: palms of [place] 00 hands gently; Do not shake vigorously [...] phosphate 3-31 250 mL, l 22:44: Route: [place] 00 IVPB, Drug form: INJ, PRN, Dosing Weight 103.653, kg, PRN Abnormal Lab Result, Start date: 06/24/16 17:44:00 CDT, Duration: 30 day, Stop date: 07/24/16 17:43:00 CDT, FOR ICU USE ONLY Naloxone No Notes: Memoria 3-31 Same as l 22:44: Narcan [place] 00 Saline No Notes: Memoria Flush 0.9% -31 (Same as: l 22:44: BD [place] Posiflush) Dulcolax No Notes: Memoria Laxative 3-31 (Same As: l 22:44: Dulcolax, Ty Bisco-Lax) Lactulose No Notes: Memori a 667 MG/ML - (Same l Oral 22:44: as:Chronul [place] Solution 00 ac) albumin No Notes: Memoria human 5% 3-31 LOT#: l intravenous 22:44: [place] solution 00 ___ Mfg: WASTE: F/P - Red; E -Red (Same as: Albuminar) "blood product derivative " Acetaminoph No Notes: Do M emoria en 300 MG / - not exceed l Codeine 22:44: 4gm/day of Herm jigna Phosphate acetaminop 30 MG Oral hen. (Same Tablet as: [Tylenol Tylenol with with Codeine #3] Codeine # 3) Zofran No Notes: Memoria 06-24 (Same as: l 22:44: Zofran) [place] 00 MEDICATION WASTE Product Size: 4 mg Product Wasted: ___ mg Xopenex No 1.25 mg, Memori a 31 Route: l 22:44: NEB, PRN, Ty Dosing Weight 102.926, kg, PRN Respirator y Protocol, Start date: 06/24/16 17:44:00 CDT, Duration: 30 day, Stop date: 07/24/16 17:43:00 CDT Morphine No Notes: Memoria 3-31 (Same l 22:44: as:MORPhin Ty e Sulfate) Albuterol No Notes: Memori a 0.833 MG/ML - (Same as: l / 22:44: Duoneb) [place] Ipratropium 00 [place] 0.167 MG/ML Inhalant Solution Glucagon No 1 mg, Memoria 331 Route: IM, l 22:44: Drug form: [place] PDR/INJ, PRN, Dosing Weight 103.653, kg, PRN [...] 06-24 not exceed l 22:44: 4 gm/day. (Same as: Tylenol) vasopressin No Route: IV, Memoria (ANES) 06-24 Drug form: l 22:40: INJ, ONCE, Stop date: 06/24/16 17:40:00 CDT vasopressin No Route: IV, Memoria (ANES) 06-24 Drug form: l 22:40: INJ, ONCE, Stop date: 06/24/16 17:40:00 CDT ondansetron No Route: IV, Memoria (ANES) 06-24 Drug form: l 22:23: INJ, ONCE, Stop date: 06/24/16 17:23:00 CDT ondansetron No Route: IV, Memoria (ANES) 06-24 Drug form: l 22:23: INJ, ONCE, Ty 00 Stop date: 06/24/16 17:23:00 CDT protamine 0 No Route: IV, Me moria (ANES) 06-24 Drug form: l 22:03: INJ, ONCE, Ty 00 Stop date: 06/24/16 17:03:00 CDT protamine 0 No Route: IV, Me moria (ANES) 06-24 Drug form: l 22:03: INJ, ONCE, Ty 00 Stop date: 06/24/16 17:03:00 CDT calcium 2016-0 No Route: IV, Danilo jerry chloride 06-24 Drug form: l (ANES) 21:48: INJ, ONCE, Soumya Stop date: 06/24/16 16:48:00 CDT calcium 2016-0 No Route: IV, Danilo jerry chloride 06-24 Drug form: l (ANES) 21:48: INJ, ONCE, Soumya Stop date: 06/24/16 16:48:00 CDT nitroglycer No Route: IV, Memoria in (ANES) 06-24 Drug form: l 20:17: INJ, ONCE, Ty 00 Stop date: 06/24/16 15:17:00 CDT nitroglycer 0 No Route: IV, Memoria in (ANES) 06-24 Drug form: l 20:17: INJ, ONCE, [place] 00 Stop date: 06/24/16 15:17:00 CDT heparin 2017-0 No Route: IV, Danilo jerry (ANES) 06-24 Drug form: l 20:07: INJ, ONCE, Ty 00 Stop date: 06/24/16 15:07:00 CDT heparin 2017-0 No Route: IV, Danilo jerry (ANES) 06-24 Drug form: l 20:07: INJ, ONCE, [place] Stop date: 06/24/16 15:07:00 CDT fentaNYL 2017-0 No Route: IV, Mem oria (ANES) 06-24 Drug form: l 19:31: INJ, ONCE, [place] 00 Stop date: 06/24/16 14:31:00 CDT fentaNYL 2017-0 No Route: IV, Mem oria (ANES) 06-24 Drug form: l 19:31: INJ, ONCE, Stop date: 06/24/16 14:31:00 CDT ePHEDrine 2016-0 No Route: IV, Me moria (ANES) 06-24 Drug form: l 19:11: INJ, ONCE, Stop date: 06/24/16 14:11:00 CDT cefuroxime [id number] No Route: IV, M emoria (ANES) 06-24 Drug form: l 19:11: INJ, ONCE, Stop date: 06/24/16 14:11:00 CDT ePHEDrine 2017-0 No Route: IV, Me moria (ANES) 06-24 Drug form: l 19:11: INJ, ONCE, Stop date: 06/24/16 14:11:00 CDT cefuroxime 2017-0 No Route: IV, M emoria (ANES) 06-24 Drug form: l 19:11: INJ, ONCE, Stop date: 06/24/16 14:11:00 CDT rocuronium 0 No Route: IV, M emoria (ANES) 06-24 Drug form: l 19:06: INJ, ONCE, Stop date: 06/24/16 14:06:00 CDT propofol 2017-0 No Route: IV, Mem oria (ANES) 06-24 Drug form: l 19:06: INJ, ONCE, Stop date: 06/24/16 14:06:00 CDT rocuronium 2017-0 No Route: IV, M emoria (ANES) 06-24 Drug form: l 19:06: INJ, ONCE, Stop date: 06/24/16 14:06:00 CDT propofol 2017-0 No Route: IV, Mem oria (ANES) 06-24 Drug form: l 19:06: INJ, ONCE, Stop date: 06/24/16 14:06:00 CDT Amicar 2016-0 No Route: IV, Memor ia (ANES) 06-24 Drug form: l (ANES) + 18:35: INJ, Dosing Weight 103.7, kg, Start date: 06/24/16 13:35:00 CDT, Stop date: 06/24/16 14:35:00 CDT Amicar No Route: IV, Memor ia (ANES) 3-31 Drug form: l (ANES) + 18:35: INJ, [place] 00 Dosing Weight 103.7, kg, Start date: 06/24/16 13:35:00 CDT, Stop date: 06/24/16 14:35:00 CDT vancomycin No Route: IV, M emoria (ANES) 3-31 Drug form: l (ANES) 18:29: INJ, Start Soumya nn date: 06/24/16 13:29:00 CDT, Stop date: 06/24/16 14:29:00 CDT vancomycin No Route: IV, M emoria (ANES) 3-31 Drug form: l (ANES) 18:29: INJ, Start Soumya nn date: 06/24/16 13:29:00 CDT, Stop date: 06/24/16 14:29:00 CDT midazolam No Route: IV, Me moria (ANES) 3-31 Drug form: l 18:11: SOLN, [place] 00 ONCE, Stop date: 06/24/16 13:11:00 CDT morphine No Route: IV, Mem oria Sulfate 3-31 Drug form: l (ANES) 18:11: INJ, ONCE, Soumya nn Stop date: 06/24/16 13:11:00 CDT midazolam No Route: IV, Me moria (ANES) 3-31 Drug form: l 18:11: SOLN, [place] 00 ONCE, Stop date: 06/24/16 13:11:00 CDT morphine No Route: IV, Mem oria Sulfate 3-31 Drug form: l (ANES) 18:11: INJ, ONCE, Soumya nn 00 Stop date: 06/24/16 13:11:00 CDT Isolyte S No Route: IV, Me moria (PH 7.4) 3-31 Total l 1000 mL 17:39: Volume: [place] (ANES) 00 1,000, Start date: 06/24/16 12:39:00 CDT, Stop date: 06/24/16 13:39:00 CDT Isolyte S 2017-0 No Route: IV, Me moria (PH 7.4) 3-31 Total l 1000 mL 17:39: Volume: Ty [...] 30 day, Stop date: 07/22/16 7:34:00 CDT sodium 2017-0 No 1,000 mL, Memori a chloride 3-29 Rate: 125 l 0.9% 1000 12:35: ml/hr, Rafat n ml INJ 00 Infuse 1,000 mL over: 8 hr, Route: IV, Dosing Weight 99.563 kg, Total Volume: 1,000, Start date: 06/22/16 7:35:00 CDT, Duration: 30 day, Stop date: 07/22/16 7:34:00 CDT Sodium 2017-0 No 250 mL, Memoria Chloride 3-29 250 ml/hr, l 0.154 12:34: Infuse [place]ml[place] MEQ/ML 00 Over: 1 Injectable hr, Route: Solution IV, 250, Drug form: INJ, ONCE, Priority: STAT, Dosing Weight 99.563 kg, Start date: 06/22/16 7:34:00 CDT, Duration: 1 doses or times, Stop date: 06/22/16 7:34:00 CDT Sodium 2017-0 No 250 mL, Memoria Chloride 3-29 250 ml/hr, l 0.154 12:34: Infuse Ty MEQ/ML 00 Over: 1 Injectable hr, Route: Solution IV, 250, Drug form: INJ, ONCE, Priority: STAT, Dosing Weight 99.563 kg, Start date: 06/22/16 7:34:00 CDT, Duration: 1 doses or times, Stop date: 06/22/16 7:34:00 CDT sodium 2017-0 No 1,000 mL, Memori a chloride 3-29 Rate: 125 l 0.9% 1000 12:19: ml/hr, Rafat n ml INJ 00 Infuse 1,000 mL over: 8 hr, Route: IV, Dosing Weight 99.563 kg, Total Volume: 1,000, Start date: 06/22/16 7:19:00 CDT, Duration: 30 day, Stop date: 07/22/16 7:18:00 CDT sodium No 1,000 mL, Memori a chloride 3-29 Rate: 125 l 0.9% 1000 12:19: ml/hr, Rafat n ml INJ 00 Infuse 1,000 mL over: 8 hr, Route: IV, Dosing Weight 99.563 kg, Total Volume: 1,000, Start date: 06/22/16 7:19:00 CDT, Duration: 30 day, Stop date: 07/22/16 7:18:00 CDT Lopressor No Notes: Memori a 3-26 (Same as: l 23:00: Lopressor) [place] 00 Lopressor No Notes: Memori a 3-26 (Same as: l 23:00: Lopressor) Ty 00 Lopressor No Notes: Memori a 3-26 (Same as: l 22:00: Lopressor) Ty 00 Lopressor No Notes: Memori a 3-26 (Same as: l 22:00: Lopressor) Ty 00 Levemir No Notes: Memoria 3-25 Same as l 02:00: Levemir Do [place] not hold insulin without contacting prescriber WASTE: F/P - Black; E - Municipal Trash Bin "single patient use only" Saline No Notes: Memoria Flush 0.9% 3-25 (Same as: l 02:00: BD [place] 00 Posiflush) Levemir No Notes: Memoria 3-25 Same as l 02:00: Levemir Do Ty 00 not hold insulin without contacting prescriber WASTE: F/P - Black; E - Municipal Trash Bin "single patient use only" Saline No Notes: Memoria Flush 0.9% 3-25 (Same as: l 02:00: BD [place] Posiflush) chlorhexidi No Notes: Danilo jerry ne 3-25 (Same As: l gluconate 01:00: Peridex) Herm jigna 1.2 MG/ML 00 Mouthwash chlorhexidi No Notes: Danilo jerry ne 3-25 (Same As: l gluconate 01:00: Peridex) Herm jigna 1.2 MG/ML 00 Mouthwash Cefazolin No Notes: Memori a 3-25 Same as: l 00:00: Ancef Ty Mupirocin No 1 appl, Memor ia 0.02 MG/MG 3-25 Route: l Topical 00:00: NASAL, [place] Ointment 00 ONCALL, Drug form: OINT, Start date: 06/17/16 19:00:00 CDT, Duration: 30 day, Stop date: 07/17/16 18:59:00 CDT Cefazolin No Notes: Memori a 3-25 Same as: l 00:00: Ancef [place] Mupirocin No 1 appl, Memor ia 0.02 MG/MG 3-25 Route: l Topical 00:00: NASAL, [place] Ointment 00 ONCALL, Drug form: OINT, Start [...] 30 day, Stop date: 07/17/16 9:00:00 CDT sodium 2016- No 250 mL, Memoria chloride -24 Rate: On l 0.9% INJ 23:54: call for Soumya nn 250 mL 00 use with blood product administra tion, Dosing Weight 102.926, kg, Route: IV, Total Volume: 250, Start Date: 06/17/16 18:54:00 CDT, Duration: 30 day, Stop date: 07/17/16 18:53:00 CDT, Replace Every: 24 hr Saline No Notes: Memoria Flush 0.9% 3-24 (Same as: l 23:54: BD [place] 00 Posiflush) metoprolol No 12.5 mg, Mem oria tartrate -24 Route: PO, l 23:54: Drug form: TAB, Q12H, Dosing Weight 102.926, kg, Priority: NOW, Start date: 06/17/16 18:54:00 CDT, Duration: 30 day, Stop date: 07/17/16 9:00:00 CDT Nitroglycer No Notes: 1 Me moria in 0.02 3-24 gram is l MG/MG 17:00: approximat Rafat n Topical 00 zara 1 inch Ointment of nitroglyce rin ointment (20 mg NTG per gram) (Same as:Nitro-B id) Nitroglycer No Notes: 1 Me moria in 0.02 3-24 gram is l MG/MG 17:00: approximat Rafta n Topical 00 zara 1 inch Ointment of nitroglyce rin ointment (20 mg NTG per gram) (Same as:Nitro-B id) Enoxaparin No Notes: Memor ia 3-24 Nurse to l 14:00: ensure [place] 00 documentat ion of patient education per anticoagul ation policy. (Same as: Lovenox) Enoxaparin No Notes: Memor ia 3-24 Nurse to l 14:00: ensure Ty 00 documentat ion of patient education per anticoagul ation policy. (Same as: Lovenox) Albuterol No Notes: Memori a 0.833 MG/ML 3-24 (Same as: l / :00: Duoneb) Ty Ipratropium 00 [place] 0.167 MG/ML Inhalant Solution [DuoNeb] Albuterol No Notes: Memori a 0.833 MG/ML 3-24 (Same as: l / 01:00: Duoneb) [place] Ipratropium 00 [place] 0.167 MG/ML Inhalant Solution [DuoNeb] Budesonide No Notes: Memor ia 0.25 MG/ML 3-23 (Same As: l Inhalant 23:32: Pulmicort) Her cazares Solution 00 [Pulmicort] Budesonide No Notes: Memor ia 0.25 MG/ML 3-23 (Same As: l Inhalant 23:32: Pulmicort) Her cazares Solution 00 [Pulmicort] Solu-Medrol No Notes: Danilo jerry 3-23 (Same l 23:12: as:Solu-ME [place] 00 DROL, A-Methapre d) Solu-Medrol No Notes: Danilo jerry 3-23 (Same l 23:12: as:Solu-ME [place] 00 DROL, A-Methapre d) Lovenox No Notes: Memoria 3-23 Nurse to l 23:00: ensure Ty 00 documentat ion of patient education per anticoagul ation policy. (Same as: Lovenox) Lovenox No Notes: Memoria 3-23 Nurse to l 23:00: ensure [place] 00 documentat ion of patient education per anticoagul ation policy. (Same as: Lovenox) Sodium No 250 mL, Memoria Chloride 3-23 250 ml/hr, l 0.154 22:00: Infuse [place] MEQ/ML 00 Over: 1 Injectable hr, Route: Solution IV, 250, Drug form: INJ, ONCALL, Priority: Routine, Dosing Weight 102.926 kg, Start date: 06/16/16 17:00:00 CDT, Duration: 1 doses or times Sodium No 250 mL, Memoria Chloride 3-23 250 ml/hr, l 0.154 22:00: Infuse Ty MEQ/ML 00 Over: 1 Injectable hr, Route: Solution IV, 250, Drug form: INJ, ONCALL, Priority: Routine, Dosing Weight 102.926 kg, Start date: 06/16/16 17:00:00 CDT, Duration: 1 doses or times Sodium No 750 mL, Memoria Chloride 3-23 Rate: 75 l 0.154 21:15: ml/hr, Ty MEQ/ML 00 Infuse Injectable over: 10 Solution hr, Route: IV, Dosing Weight 102.926 kg, Total Volume: 750, Start date: 06/16/16 16:15:00 CDT, Stop date: 06/17/16 16:14:00 CDT Sodium 2016- No 750 mL, Memoria Chloride 3-23 Rate: 75 l 0.154 21:15: ml/hr, [place] MEQ/ML 00 Infuse Injectable over: 10 Solution hr, Route: IV, Dosing Weight 102.926 kg, Total Volume: 750, Start date: 06/16/16 16:15:00 CDT, Stop date: 06/17/16 16:14:00 CDT acetaminoph No Notes: Do M emoria en-codeine 3-23 not exceed l #3 21:11: 4gm/day of [place] 00 acetaminop hen. (Same as: Tylenol with Codeine # 3) Acetaminoph No Notes: Do M emoria en 3-23 not exceed l 21:11: 4 gm/day. [place] (Same as: Tylenol) Sodium No 500 mL, Memoria Chloride 3-23 Rate: 150 l 0.154 21:11: ml/hr, [place] MEQ/ML 00 Infuse Injectable over: 3.3 Solution hr, Route: IV, Dosing Weight 102.926 kg, Total Volume: 500, Start date: 06/16/16 16:11:00 CDT, Stop date: 06/16/16 20:10:00 CDT acetaminoph No Notes: Do M emoria en-codeine 3-23 not exceed l #3 21:11: 4gm/day of [place] 00 acetaminop hen. (Same as: Tylenol with Codeine # 3) Acetaminoph No Notes: Do M emoria en 3-23 not exceed l 21:11: 4 gm/day. Ty 00 (Same as: Tylenol) Sodium 2016-0 No 500 mL, Memoria Chloride - Rate: 150 l 0.154 21:11: ml/hr, Ty MEQ/ML 00 Infuse Injectable over: 3.3 Solution hr, Route: IV, Dosing Weight 102.926 kg, Total Volume: 500, Start date: 06/16/16 16:11:00 CDT, Stop date: 06/16/16 20:10:00 CDT Sodium 2016-0 No 250 mL, Memoria Chloride 06-16 Route: l 0.9% IV 20:49: IVPB, [place] 00 Start date: 06/16/16 15:49:00 CDT, Duration: 30 day, Stop date: 07/16/16 15:48:00 CDT, PRN Line Flush Sodium 2016-0 No 250 mL, Memoria Chloride 06-16 Route: l 0.9% IV 20:49: IVPB, Start date: 06/16/16 15:49:00 CDT, Duration: 30 day, Stop date: 07/16/16 15:48:00 CDT, PRN Line Flush Dextrose 2016- No 25 gm, 50 Danilo jerry 50% Syringe - mL, Route: l 20:45: IVP, Drug Form: INJ, Dosing Weight 102.926, kg, PRN, PRN Blood Glucose Results, Start date: 06/16/16 15:45:00 CDT, Duration: 30 day, Stop date: 07/16/16 15:44:00 CDT Insulin, 2016- No Notes: Memoria Aspart, - Roll in l Human 20:45: palms of hands gently; Do not shake vigorously . (Same as: NovoLOG) "single patient use only" WASTE: F/P - Black; E - Municipal Trash Bin Stable for 28 days at room temperatur e. Expires in days from ____Date Glucagon 2016- No 1 mg, Memoria 3-23 Route: IM, l 20:45: Drug form: PDR/INJ, PRN, Dosing Weight 102.926, kg, PRN Blood Glucose Results, Start date: 06/16/16 15:45:00 CDT, Duration: 30 day, Stop date: 07/16/16 15:44:00 CDT Dextrose 2017-0 No 25 gm, 50 Danilo jerry 50% Syringe 3-23 mL, Route: l 20:45: IVP, Drug Ty 00 Form: INJ, Dosing Weight 102.926, kg, PRN, PRN Blood Glucose Results, Start date: 06/16/16 15:45:00 CDT, Duration: 30 day, Stop date: 07/16/16 15:44:00 CDT Insulin, 2017-0 No Notes: Memoria Aspart, 3-23 Roll in l Human 20:45: palms of [place] 00 hands gently; Do not shake vigorously . (Same as: NovoLOG) "single patient use only" WASTE: F/P - Black; E - Municipal Trash Bin Stable for 28 days at room temperatur e. Expires in days from ____Date Glucagon 2017-0 No 1 mg, Memoria 3-23 Route: IM, l 20:45: Drug form: Ty 00 PDR/INJ, PRN, Dosing Weight 102.926, kg, PRN Blood Glucose Results, Start date: 06/16/16 15:45:00 CDT, Duration: 30 day, Stop date: 07/16/16 15:44:00 CDT Sodium 2017-0 No 1,000 mL, Memori a Chloride 3-23 Rate: 100 l 0.154 14:19: ml/hr, Ty MEQ/ML 00 Infuse Injectable over: 10 Solution hr, Route: IV, Dosing Weight 102.926 kg, Total Volume: 1,000, Start date: 06/16/16 9:19:00 CDT, Duration: 30 day, Stop date: 07/16/16 9:18:00 CDT Sodium 2017-0 No 1,000 mL, Memori a Chloride 3-23 Rate: 100 l 0.154 14:19: ml/hr, [place] MEQ/ML 00 Infuse Injectable over: 10 Solution hr, Route: IV, Dosing Weight 102.926 kg, Total Volume: 1,000, Start date: 06/16/16 9:19:00 CDT, Duration: 30 day, Stop date: 07/16/16 9:18:00 CDT aspirin 81 No Notes: Do Me moria mg tablet, 3-23 not crush l enteric 14:00: or chew. Rafat n coated 00 (Same As: Ecotrin) aspirin 81 No Notes: Do Me moria mg tablet, 3-23 not crush l enteric 14:00: or chew. Rafat n coated 00 (Same As: Ecotrin) Nitroglycer No Notes: 1 Me moria in 0.02 3-23 gram is l MG/MG 11:00: approximat Rafat n Topical 00 zara 1 inch Ointment of nitroglyce rin ointment (20 mg NTG per gram) (Same as:Nitro-B id) Nitroglycer No Notes: 1 Me moria in 0.02 3-23 gram is l MG/MG 11:00: approximat Rafat n Topical 00 zara 1 inch Ointment of nitroglyce rin ointment (20 mg NTG per gram) (Same as:Nitro-B id) metoprolol No Notes: Memor ia tartrate 3-23 (Same as: l 05:00: Lopressor) metoprolol No Notes: Memor ia tartrate 3-23 (Same as: l 05:00: Lopressor) Sodium 2016-0 No 250 mL, Memoria Chloride 3-23 250 ml/hr, l 0.154 03:00: Infuse [place] MEQ/ML 00 Over: 1 Injectable hr, Route: Solution IV, 250, Drug form: INJ, ONCALL, Priority: Routine, Dosing Weight 102.926 kg, Start date: 06/15/16 22:00:00 CDT, Duration: 1 doses or times Sodium 2016-0 No 250 mL, Memoria Chloride 3-23 250 ml/hr, l 0.154 03:00: Infuse [place] MEQ/ML 00 Over: 1 Injectable hr, Route: Solution IV, 250, Drug form: INJ, ONCALL, Priority: Routine, Dosing Weight 102.926 kg, Start date: 06/15/16 22:00:00 CDT, Duration: 1 doses or times Sodium 2017-0 No 750 mL, Memoria Chloride 3-23 Rate: 75 l 0.154 02:02: ml/hr, [place] MEQ/ML 00 Infuse Injectable over: 10 Solution hr, Route: IV, Dosing Weight 102.926 kg, Total Volume: 750, Start date: 06/15/16 21:02:00 CDT, Duration: 24 hr, Stop date: 06/16/16 21:01:00 CDT Sodium 2017-0 No 750 mL, Memoria Chloride 3-23 Rate: 75 l 0.154 02:02: ml/hr, [place] MEQ/ML 00 Infuse Injectable over: 10 Solution hr, Route: IV, Dosing Weight 102.926 kg, Total Volume: 750, Start date: 06/15/16 21:02:00 CDT, Duration: 24 hr, Stop date: 06/16/16 21:01:00 CDT Saline No Notes: Memoria Flush 0.9% 3-23 (Same as: l 02:00: BD Ty 00 Posiflush) atorvastati No Notes: Danilo jerry n 3-23 (Same as: l 02:00: Lipitor) metoprolol No 25 mg, Memor ia tartrate 3-23 Route: PO, l 02:00: Drug form: [place] 00 TAB, Q12H, Dosing Weight 102.926, kg, Start date: 06/15/16 21:00:00 CDT, Duration: 30 day, Stop date: 07/15/16 9:00:00 CDT Saline No Notes: Memoria Flush 0.9% 3-23 (Same as: l 02:00: BD [place] 00 Posiflush) atorvastati No Notes: Danilo jerry n 3-23 (Same as: l 02:00: Lipitor) metoprolol 0 No 25 mg, Memor ia tartrate 3-23 Route: PO, l 02:00: Drug form: Ty 00 TAB, Q12H, Dosing Weight 102.926, kg, Start date: 06/15/16 21:00:00 CDT, Duration: 30 day, Stop date: 07/15/16 9:00:00 CDT Enoxaparin 2017-0 No Notes: Memor ia 3- Nurse to l 00:00: ensure Ty 00 documentat ion of patient education per anticoagul ation policy. (Same as: Lovenox) Enoxaparin No Notes: Memor ia 3-23 Nurse to l 00:00: ensure [place] 00 documentat ion of patient education per anticoagul ation policy. (Same as: Lovenox) Albuterol No Notes: Memori a 0.833 MG/ML 3-22 (Same as: l / 18:56: Duoneb) Ty Ipratropium 00 [place] 0.167 MG/ML Inhalant Solution [DuoNeb] Albuterol No Notes: Memori a 0.833 MG/ML 3-22 (Same as: l / 18:56: Duoneb) Ty Ipratropium 00 [place] 0.167 MG/ML Inhalant Solution [DuoNeb] Saline No Notes: Memoria Flush 0.9% 3-22 (Same as: l 18:52: BD [place] Posiflush) Labetalol No Notes: Memori a 3-22 (Same as: l 18:52: Normodyne, Ty 00 Trandate) Push over 2 minutes Give bolus over 2-3 minutes. Trazodone No Notes: Memori a Hydrochlori -22 (Same As: l de 50 MG 18:52: Desyrel) Soumya nn Oral Tablet 00 Miralax No Notes: Memoria 3-22 Dissolve l 18:52: in 8 oz of [place] 00 water or juice. (Same as: Miralax) Nitroglycer No Notes: Dainlo jerry in 3-22 (Same l 18:52: as:Nitroqu [place] 00 ick, Nitrostat) "Do Not Crush" Sublingual tablet Morphine No Notes: Memoria 3-22 (Same l 18:52: as:MORPhin [place] 00 e Sulfate) Ondansetron No Notes: Danilo jerry 3-22 (Same as: l 18:52: Zofran) [place] 00 Saline No Notes: Memoria Flush 0.9% 3-22 (Same as: l 18:52: BD Ty 00 Posiflush) Labetalol No Notes: Memori a - (Same as: l 18:52: Normodyne, [place] Trandate) Push over 2 minutes Give bolus [...] jerry 06-15 (Same as: l 18:52: Zofran) [place] 00 Immunizations Ordered Filled Immunization Date Status Comments [facility] e Immunization Name Name Influenza High Dose 2018-11-25 Completed [facility] 00:00:00 [facility] Influenza High Dose 2018-11-25 Completed [facility] of 00:00:00 [facility] Influenza High Dose 2018-11-25 Completed [facility]ive rs[facility] of 00:00:00 [facility] Influenza High Dose 2018-11-25 Completed [facility]ive rs[facility] of 00:00:00 [facility] Influenza High Dose 2018-11-25 Completed [facility]ive rs[facility] of 00:00:00 [facility] Influenza High Dose 2018-11-25 Completed [facility]ive rs[facility] of 00:00:00 [facility] Influenza High Dose 2018-11-25 Completed [facility] rs[facility] of 00:00:00 [facility] Influenza High Dose 2018-11-25 Completed [facility] rs[facility] of 00:00:00 [facility] Influenza High Dose 2018-11-25 Completed [facility] rs[facility] of 00:00:00 [facility] Influenza High Dose 2018-11-25 Completed [facility] of 00:00:00 [facility] Influenza High Dose 2018-11-25 Completed [facility] rs[facility] of 00:00:00 [facility] pneumococcal 2016-06-30 Completed [facility] cazares 13-valent vaccine 17:42:00 pneumococcal 2016-06-30 Completed [facility] cazares 13-valent vaccine 17:42:00 Vital Signs Vital Name Observation Time Observation Value Comments Source HEIGHT 2020-09-11 09:44:00 177.8 cm WEIGHT 2020-09-11 09:44:00 95.255 kg HEIGHT 2020-09-11 09:44:00 177.8 cm WEIGHT 2020-09-11 09:44:00 95.255 kg HEIGHT 2020-09-07 14:08:00 177.8 cm WEIGHT 2020-09-07 14:08:00 80.74 kg HEIGHT 2020-09-07 14:08:00 177.8 cm WEIGHT 2020-09-07 14:08:00 80.74 kg Systolic blood 2019-04-25 17:33:00 106 mm[Hg] [facility] Diastolic blood 2019-04-25 17:33:00 76 mm[Hg] [facility] Heart rate 2019-04-25 17:33:00 77 /min [facility] Respiratory rate 2019-04-25 17:33:00 19 /[facility] height 2019-04-25 17:33:00 167.6 cm [facility] Body weight 2019-04-25 17:33:00 95.709 kg [facility] BMI 2019-04-25 17:33:00 34.06 kg/m2 [facility] Oxygen saturation in 2019-04-25 17:33:00 99 /min [facility] Arterial blood by [facility] Pulse oximetry Branch Systolic blood 2018-12-06 14:38:00 134 mm[Hg] [facility] Diastolic blood 2018-12-06 14:38:00 74 mm[Hg] [facility] Heart rate 2018-12-06 14:38:00 75 /min [facility] Respiratory rate 2018-12-06 14:38:00 19 /min [facility] Body height 2018-12-06 14:38:00 167.6 cm [facility] Body weight 2018-12-06 14:38:00 105.235 kg [facility] BMI 2018-12-06 14:38:00 37.45 kg/m2 [facility] Oxygen saturation in 2018-12-06 14:38:00 97 /min [facility] of Arterial blood by Yaima rodriguez Pulse oximetry Branch Heart rate 2020-11-14 18:27:00 65 /min [facility] ty [facility] Respiratory rate 2020-11-14 18:27:00 18 /min Univ ersjax of Yaima [facility] Systolic blood 2020-11-14 17:17:17 118 mm[Hg] [facility] [place] [facility] Diastolic blood 2020-11-14 17:17:17 76 mm[Hg] Unive rsity of pressure Yaima [facility] Body temperature 2020-11-14 17:17:17 36.61 Arlen Univ ersjax Yaima [facility] Oxygen saturation in 2020-11-14 17:17:17 96 /min [facility] Arterial blood by Yaima fine Pulse oximetry [facility] Body weight 2020-11-13 09:45:00 95.8 kg [facility] BMI 2020-11-13 09:45:00 33.15 kg/m2 [facility] [place] [facility] Body height 2020-10-29 16:22:00 170 cm Universi ty [facility] Respitory Rate 2016-06-30 20:27:00 Memori al Ty Systolic (mm Hg) 2016-06-30 20:27:00 Danilo rial Ty Diastolic (mm Hg) 2016-06-30 20:27:00 Mem orial [place] Heart Rate 2016-06-30 20:27:00 [facility] [place] Respitory Rate 2016-06-30 17:09:00 Memori al [place] Systolic (mm Hg) 2016-06-30 17:09:00 Danilo rial Ty Diastolic (mm Hg) 2016-06-30 17:09:00 Mem orial Ty Heart Rate 2016-06-30 17:09:00 Memorial Ty Systolic (mm Hg) 2016-06-30 13:00:00 Danilo rial Ty Diastolic (mm Hg) 2016-06-30 13:00:00 Mem satishal [place] Heart Rate 2016-06-30 13:00:00 [facility] [place] Respitory Rate 2016-06-30 13:00:00 Mo vyas Ty Weight 2016-06-29 10:00:00 [facility] [place] Weight 2016-06-28 10:23:00 Memorial Ty Height 2016-06-25 05:04:00 177.8 cm Memorial [place] Height 2016-06-25 03:47:00 177.8 cm Memorial [place] Height 2016-06-24 22:55:00 177.8 cm Memorial Ty Temperature Oral (F) 2016-06-24 14:55:00 97.6 F [facility] [place] Weight 2016-06-24 10:00:00 [facility] [place] Temperature Oral (F) 2016-06-20 13:00:00 97.9 F [facility] [place] BMI Calculated 2016-06-15 16:47:00 Mo vyas Ty Procedures Procedure Date / Time Performing Clinician Source Performed HEPATIC FUNCTION PANEL 2020-11-14 07:17:00 Yuriy Parker [facility] COMPREHENSIVE METABOLIC 2020-11-14 07:17:00 Yuriy Parker [facility] PANEL [facility] MAGNESIUM LEVEL 2020-11-14 07:17:00 Yuriy Parker [facility] PHOSPHORUS LEVEL 2020-11-14 07:17:00 Yuriy Parker [facility] LACTATE DEHYDROGENASE 2020-11-14 07:17:00 [facility] COMPLETE BLOOD COUNT W/ 2020-11-14 07:17:00 [facility] URIC ACID 2020-11-14 07:17:00 Mari Lovell [facility] ALBUMIN LEVEL 2020-11-14 07:17:00 Yuriy Parker [facility] ALKALINE PHOSPHATASE 2020-11-14 07:17:00 [facility] ALANINE AMINOTRANSFERASE 2020-11-14 07:17:00 Yuriy Parker [facility] ASPARTATE AMINOTRANSFERASE 2020-11-14 07:17:00 Juan Parker [facility] TOTAL PROTEIN 2020-11-14 07:17:00 Yuriy Parker [facility] FRACTIONATED BILIRUBIN 2020-11-14 07:17:00 Yuriy Parker [facility] GLUCOSE LEVEL 2020-11-14 07:17:00 Yuriy Parker [facility] BLOOD UREA NITROGEN 2020-11-14 07:17:00 Yuriy Parker [facility] ELECTROLYTE PANEL 2020-11-14 07:17:00 Yuriy Parker [facility] SERUM CREATININE 2020-11-14 07:17:00 Yuriy Parker [facility] .GLOMERULAR FILTRATION 2020-11-14 07:17:00 Yuriy Parker [facility] RATE [facility] CALCIUM LEVEL TOTAL 2020-11-14 07:17:00 Yuriy Parker [facility] Results CBC 2020-11-14 07:17:00 Yanet Gurrola [facility] MANUAL DIFFERENTIAL 2020-11-14 07:17:00 Yanet Gurrola [facility] OSCILLATORY PEP 2020-11-13 19:00:28 Hayden [facility] o [facility] OSCILLATORY PEP 2020-11-13 13:00:08 Hayden [facility] o [facility] HEPATIC FUNCTION PANEL 2020-11-13 08:47:00 Yuriy Parker [facility] COMPREHENSIVE METABOLIC 2020-11-13 08:47:00 Yuriy Parker [facility] MAGNESIUM LEVEL 2020-11-13 08:47:00 Yuriy Parker [facility] PHOSPHORUS LEVEL 2020-11-13 08:47:00 [facility] LACT[facility] DEHYDROGENASE 2020-11-13 08:47:00 Yanet Gurrola [facility] COMPLETE BLOOD COUNT W/ 2020-11-13 08:47:00 Yanet Gurrola [facility] DIFFERENTIAL [facility] TYPE AND SCREEN 2020-11-13 08:47:00 SamaraVania donahue [facility] APTT 2020-11-13 08:47:00 Mari Lovell [facility] URIC ACID 2020-11-13 08:47:00 Mari Lovell [facility] PROTHROMBIN TIME 2020-11-13 08:47:00 Mari Lovell [facility] ABORH 2020-11-13 08:47:00 Randolph Payne [facility] ANTIBODY SCREEN 2020-11-13 08:47:00 Dionna[facility] ALBUMIN LEVEL 2020-11-13 08:47:00 Yuriy Parker [facility] ALKALINE PHOSPHATASE 2020-11-13 08:47:00 [facility] ALANINE AMINOTRANSFERASE 2020-11-13 08:47:00 Yuriy Parker [facility] ASPARTATE AMINOTRANSFERASE 2020-11-13 08:47:00 Juan Parker [facility] TOTAL PROTEIN 2020-11-13 08:47:00 Yuriy Parker [facility] FRACTIONATED BILIRUBIN 2020-11-13 08:47:00 Yuriy Parker [facility] GLUCOSE LEVEL 2020-11-13 08:47:00 Yuriy Parker [facility] BLOOD UREA NITROGEN 2020-11-13 08:47:00 Yuriy Parker [facility] ELECTROLYTE PANEL 2020-11-13 08:47:00 Yuriy Parker [facility] SERUM CREATININE 2020-11-13 08:47:00 Yuriy Parker [facility] .GLOMERULAR FILTRATION 2020-11-13 08:47:00 Yuriy Parker [facility] RATE [facility] CALCIUM LEVEL TOTAL 2020-11-13 08:47:00 Yuriy Parker [facility] Results CBC 2020-11-13 08:47:00 Yanet Gurrola [facility] MANUAL DIFFERENTIAL 2020-11-13 08:47:00 Yanet Gurrola [facility] CLOT EXPIRATION DATE 2020-11-13 08:47:00 Randolph Payne [facility] TMP INTERPRETATION 2020-11-13 08:47:00 Randolph Payne [facility] ANTIBODY SCREEN NEGATIVE MD [facility] OSCILLATORY PEP 2020-11-13 07:00:14 Hayden [facility] OSCILLATORY PEP 2020-11-13 01:00:09 Hayden [facility] OSCILLATORY PEP 2020-11-12 19:00:07 Hayden [facility] OSCILLATORY PEP 2020-11-12 13:00:08 Hyaden [facility] US RENAL 2020-11-12 12:36:12 [facility] FUN[facility] PANEL 2020-11-12 09:08:00 Yuriy Parker [facility] COMPREHENSIVE METABOLIC 2020-11-12 09:08:00 Yuriy Parker [facility] PANEL [facility] MAGNESIUM LEVEL 2020-11-12 09:08:00 Yuriy Parker [facility] PHOSPHORUS LEVEL 2020-11-12 09:08:00 Yuriy Parker [facility] LACTATE DEHYDROGENASE 2020-11-12 09:08:00 Yanet Gurrola [facility] COMPLETE BLOOD COUNT W/ 2020-11-12 09:08:00 Yanet Gurrola [facility] DIFFERENTIAL [facility] URIC ACID 2020-11-12 09:08:00 Mari Lovell [facility] ALBUMIN LEVEL 2020-11-12 09:08:00 Yuriy Parker [facility] ALKALINE PHOSPHATASE 2020-11-12 09:08:00 [facility] ALANINE AMINOTRANSFERASE 2020-11-12 09:08:00 Yuriy Parker [facility] ASPARTATE AMINOTRANSFERASE 2020-11-12 09:08:00 Juan Parker E [facility] TOTAL PROTEIN 2020-11-12 09:08:00 Yuriy Parker [facility] FRACTIONATED BILIRUBIN 2020-11-12 09:08:00 Yuriy Parker [facility] GLUCOSE LEVEL 2020-11-12 09:08:00 Yuriy Parker [facility] BLOOD UREA NITROGEN 2020-11-12 09:08:00 Yuriy Parker [facility] ELECTROLYTE PANEL 2020-11-12 09:08:00 [facility] SERUM CREATININE 2020-11-12 09:08:00 Yuriy Parker [facility] .GLOMERULAR FILTRATION 2020-11-12 09:08:00 Yuriy Parker [facility] CALCIUM LEVEL TOTAL 2020-11-12 09:08:00 Yuriy Parker [facility] Results CBC 2020-11-12 09:08:00 Yanet Gurrola [facility] MANUAL DIFFERENTIAL 2020-11-12 09:08:00 Yanet Gurrola [facility] OSCILLATORY PEP 2020-11-12 07:00[facility] 2020-11-12 01:00[facility]11 [facility] URINALYSIS MICROSCOPIC 2020-11-11 22:06:00 Adry Middleton [facility] SODIUM URINE 2020-11-11 [facility] 2020-11-11 22:06:00 Emi [facility] UREA NITROGEN URINE 2020-11-11 22:06:00 Emi [facility] ALBUMIN LEVEL URINE 2020-11-11 22:06:00 Emi [facility] PROTEIN / CREATININE RATIO 2020-11-11 22:06:00 [facility] URINALYSIS WITH 2020-11-11 22:06:00 Abiodun Borjsa [facility] MICROSCOPIC IF INDICATED Randolph Gallagher MD [facility] TRANSFUSE RED BLOOD CELLS 2020-11-11 19:21:00 Abiodun Borjas [facility] Randolph Gallagher MD [facility] OSCILLATORY PEP 2020-11-11 19:00:42 Hayden [facility] OSCILLATORY PEP 2020-11-11 13:00:09 [facility] PREPARE RBC 2020-11-11 12:00:00 Abiodun Borjas [facility] PRBC PRODUCT READY FOR 2020-11-11 12:00:00 Abiodun Borjas [facility] AMMONIA DISTILLER [facility] HEPATIC FUNCTION PANEL 2020-11-11 09:16:00 Yuriy Parker [facility] COMPREHENSIVE METABOLIC 2020-11-11 09:16:00 Yuriy Parker [facility] PANEL [facility] MAGNESIUM LEVEL 2020-11-11 09:16:00 Yuriy Parker [facility] PHOSPHORUS LEVEL 2020-11-11 09:16:00 Yuriy Parker [facility] LACTATE DEHYDROGENASE 2020-11-11 09:16:00 Yanet Gurrola [facility] COMPLETE BLOOD COUNT W/ 2020-11-11 09:16:00 Yanet Gurrola [facility] DIFFERENTIAL [facility] URIC ACID 2020-11-11 09:16:00 Mair Lovell [facility] ALBUMIN LEVEL 2020-11-11 09:16:00 Yuriy Parker [facility] ALKALINE PHOSPHATASE 2020-11-11 09:16:00 Yuriy [facility] ALANINE AMINOTRANSFERASE 2020-11-11 09:16:00 Yuriy Parker [facility] ASPARTATE AMINOTRANSFERASE 2020-11-11 09:16:00 Juan Parker [facility] TOTAL PROTEIN 2020-11-11 09:16:00 Yuriy Parker [facility] FRACTIONATED BILIRUBIN 2020-11-11 09:16:00 Yuriy Parker [facility] GLUCOSE LEVEL 2020-11-11 09:16:00 Yuriy Parker [facility] BLOOD UREA NITROGEN 2020-11-11 09:16:00 Yuriy Parker [facility] ELECTROLYTE PANEL 2020-11-11 09:16:00 Yuriy Parker [facility] SERUM CREATININE 2020-11-11 09:16:00 Yuriy Parker [facility] .GLOMERULAR FILTRATION 2020-11-11 09:16:00 Yuriy Parker [facility] CALCIUM LEVEL TOTAL 2020-11-11 09:16:00 Yuriy Parker [facility] Results CBC 2020-11-11 09:16:00 Yanet Gurrola [facility] MANUAL DIFFERENTIAL 2020-11-11 09:16:00 Yanet Gurrola [facility] OSCILLATORY PEP 2020-11-11 07:00:18 Hayden [facility] OSCILLATORY PEP 2020-11-11 01:00:[facility]+ VW LEFT 2020-11-10 21:20:23 Yanet Gurrola [facility] OSCILLATORY PEP 2020-11-10 19:00:41 [facility] COVID-19 (SARS-COV-2) 2020-11-10 18:41:00 Hayden [facility] PCR-ASYMPTOMATIC [facility] OSCILLATORY PEP 2020-11-10 13:00:11 [facility] FUNCTION PANEL 2020-11-10 12:55:00 Yuriy Parker [facility] COMPREHENSIVE METABOLIC 2020-11-10 12:55:00 Yuriy Parker [facility] MAGNESIUM LEVEL 2020-11-10 12:55:00 Yuriy Parker [facility] PHOSPHORUS LEVEL 2020-11-10 12:55:00 Yuriy Parker [facility] LACTATE DEHYDROGENASE 2020-11-10 12:55:00 Yanet [facility]rola [facility] COMPLETE BLOOD COUNT W/ 2020-11-10 12:55:00 Yanet Gurrola [facility] DIFFERENTIAL [facility] TYPE AND SCREEN 2020-11-10 12:55:00 Vania Pascual [facility] APTT 2020-11-10 12:55:00 Mari Lovell [facility] URIC ACID 2020-11-10 12:55:00 Mari Lovell [facility] PROTHROMBIN TIME 2020-11-10 12:55:00 Mari Lovell [facility] ABORH 2020-11-10 12:55:00 Dion[facility] ANTIBODY S[facility]EN 2020-11-10 12:55:00 Dionna[facility] ALBUMIN LEVEL 2020-11-10 12:55:00 Yuriy Parker [facility] ALKALINE PHOSPHATASE 2020-11-10 12:55:00 Yuriy Parker [facility] ALANINE AMINOTRANSFERASE 2020-11-10 12:55:00 Yuriy aPrker [facility] ASPARTATE AMINOTRANSFERASE 2020-11-10 12:55:00 Juan Parker [facility] TOTAL PROTEIN 2020-11-10 12:55:00 Yuriy Parker [facility] FRACTIONATED BILIRUBIN 2020-11-10 12:55:00 Yuriy Parker [facility] GLUCOSE LEVEL 2020-11-10 12:55:00 Yuriy Parker [facility] BLOOD UREA NITROGEN 2020-11-10 12:55:00 Yuriy Parker [facility] ELECTROLYTE PANEL 2020-11-10 12:55:00 Yuriy Parker [facility] SERUM CREATININE 2020-11-10 12:55:00 Yuriy Parker [facility] .GLOMERULAR FILTRATION 2020-11-10 12:55:00 Yuriy Parker [facility] RATE [facility] CALCIUM LEVEL TOTAL 2020-11-10 12:55:00 Yuriy Parker [facility] Results CBC 2020-11-10 12:55:00 Yanet Gurrola [facility] MANUAL DIFFERENTIAL 2020-11-10 12:55:00 Yanet Gurrola [facility] TMP INTERPRETATION 2020-11-10 12:55:00 Randolph Payne [facility] ANTIBODY SCREEN NEGATIVE [facility] CLOT EXPIRATION DATE 2020-11-10 12:55:00 Randolph Payne [facility] TMP CROSSMATCH 2020-11-10 12:55:00 Randolph Payne [facility] INTERPRETATION [facility] OSCILLATORY PEP 2020-11-10 07:00:06 Hayden [facility] OSCILLATORY PEP 2020-11-10 01:00:11 Hayden [facility] OSCILLATORY PEP 2020-11-09 19:00:05 Hayden [facility] PERIPHERAL SMR FOR DOC 2020-11-09 16:10:00 Kristina Blake [facility] REVIEW [facility] BLOODCULTURE 2020-11-09 16:02:[facility] O[facility] PEP 2020-11-09 13:00:08 [facility] HEPATIC FUNCTION PANEL 2020-11-09 07:45:00 Yuriy Parker [facility] COMPREHENSIVE METABOLIC 2020-11-09 07:45:00 Yuriy Parker [facility] PANEL [facility] MAGNESIUM LEVEL 2020-11-09 07:45:00 Yuriy Parker [facility] PHOSPHORUS LEVEL 2020-11-09 07:45:00 Yuriy Parker [facility] LACTATE DEHYDROGENASE 2020-11-09 07:45:00 Yanet Gurrola [facility] COMPLETE BLOOD COUNT W/ 2020-11-09 07:45:00 Yanet Gurrola [facility] DIFFERENTIAL [facility] URIC ACID 2020-11-09 07:45:00 Mari Lovell [facility] ALBUMIN LEVEL 2020-11-09 07:45:00 Yuriy Parker [facility] ALKALINE PHOSPHATASE 2020-11-09 07:45:00 Yuriy Parker [facility] ALANINE AMINOTRANSFERASE 2020-11-09 07:45:00 Yuriy Parker [facility] ASPARTATE AMINOTRANSFERASE 2020-11-09 07:45:00 Juan Parker [facility] TOTAL PROTEIN 2020-11-09 07:45:00 Yuriy Parker [facility] FRACTIONATED BILIRUBIN 2020-11-09 07:45:00 Yuriy Parker [facility] GLUCOSE LEVEL 2020-11-09 07:45:00 Yuriy Parker [facility] BLOOD UREA NITROGEN 2020-11-09 07:45:00 Yuriy Parker [facility] ELECTROLYTE PANEL 2020-11-09 07:45:00 Yuriy Parker [facility] SERUM CREATININE 2020-11-09 07:45:00 Yuriy Parker [facility] .GLOMERULAR FILTRATION 2020-11-09 07:45:00 Yuriy Parker [facility] RATE [facility] CALCIUM LEVEL TOTAL 2020-11-09 07:45:00 Yuriy Parker [facility] Results CBC 2020-11-09 07:45:00 Yanet Gurrola [facility] MANUAL DIFFERENTIAL 2020-11-09 07:45:00 Yanet Gurrola [facility] OSCILLATORY PEP 2020-11-09 07:00:10 Hayden [facility] OSCILLATORY PEP 2020-11-09 01:00:10 Hayden [facility] OSCILLATORY PEP 2020-11-08 [facility]:00:45 [facility] 2020-11-08 13:00:07 Hayden [facility] XR CHEST 2 VW 2020-11-08 12:42:57 [facility] VRE CULTURE 2020-11-08 10:56:00 Yuriy Parker [facility] HEPATIC FUNCTION PANEL 2020-11-08 08:58:00 Yuriy Parker [facility] COMPREHENSIVE METABOLIC 2020-11-08 08:58:00 Yuriy Parker [facility] MAGNESIUM LEVEL 2020-11-08 08:58:00 Yuriy Parker [facility] PHOSPHORUS LEVEL 2020-11-08 08:58:00 Yuriy Parker [facility] LACTATE DEHYDROGENASE 2020-11-08 08:58:00 Yanet Gurrola [facility] COMPLETE BLOOD COUNT W/ 2020-11-08 08:58:00 Yanet Gurrola [facility] DIFFERENTIAL [facility] URIC ACID 2020-11-08 08:58:00 Mari Lovell [facility] ALBUMIN LEVEL 2020-11-08 08:58:00 Yuriy Parker [facility] ALKALINE PHOSPHATASE 2020-11-08 08:58:00 Yuriy Parker [facility] ALANINE AMINOTRANSFERASE 2020-11-08 08:58:00 Yuriy Parker [facility] ASPARTATE AMINOTRANSFERASE 2020-11-08 08:58:00 Juan Parker [facility] TOTAL PROTEIN 2020-11-08 08:58:00 Yuriy Parker [facility] FRACTIONATED BILIRUBIN 2020-11-08 08:58:00 Yuriy Parker [facility] GLUCOSE LEVEL 2020-11-08 08:58:00 Yuriy Parker [facility] BLOOD UREA NITROGEN 2020-11-08 08:58:00 Yuriy Parker [facility] ELECTROLYTE PANEL 2020-11-08 08:58:00 Yuriy Parker [facility] SERUM CREATININE 2020-11-08 08:58:00 Yuriy Parker [facility] .GLOMERULAR FILTRATION 2020-11-08 08:58:00 Yuriy Parker [facility] CALCIUM LEVEL TOTAL 2020-11-08 08:58:00 Yuriy Parker [facility] Results CBC 2020-11-08 08:58:00 Yanet Gurrola [facility] MANUAL DIFFERENTIAL 2020-11-08 08:58:00 Yanet Gurrola [facility] 2020-11-08 07:00:15 Hayden [facility] o [facility] OSCILLATORY PEP 2020-11-08 01:00:07 Hayden [facility] o [facility] LOWER RESPIRATORY CULTURE 2020-11-08 00:20:00 [facility] W/ GRAM STAIN [facility] OSCILLATORY PEP 2020-11-07 19:00:27 Hayden [facility] OSCILLATORY PEP 2020-11-07 13:00:08 Hayden [facility] HEPATIC FUNCTION PANEL 2020-11-07 08:41:00 Yuriy Parker [facility] COMPREHENSIVE METABOLIC 2020-11-07 08:41:00 Yuriy Parker [facility] MAGNESIUM LEVEL 2020-11-07 08:41:00 Yuriy Parker [facility] PHOSPHORUS LEVEL 2020-11-07 08:41:00 Yuriy Parker [facility] LACTATE DEHYDROGENASE 2020-11-07 08:41:00 Yanet Gurrola [facility] COMPLETE BLOOD COUNT W/ 2020-11-07 08:41:00 Yanet Gurrola [facility] DIFFERENTIAL [facility] TYPE AND SCREEN 2020-11-07 08:41:00 Vania Pascual [facility] URIC ACID 2020-11-07 08:41:00 Mari Lovell [facility] ABORH 2020-11-07 08:41:00 [facility] ANTIBODY SCREEN 2020-11-07 08:41:00 Randolph Payne [facility] ALBUMIN LEVEL 2020-11-07 08:41:00 Yuriy Parker [facility] ALKALINE PHOSPHATASE 2020-11-07 08:41:00 Yuriy Parker [facility] ALANINE AMINOTRANSFERASE 2020-11-07 08:41:00 Yuriy Parker [facility] ASPARTATE AMINOTRANSFERASE 2020-11-07 08:41:00 Juan Parker [facility] TOTAL PROTEIN 2020-11-07 08:41:00 Yuriy Parker [facility] FRACTIONATED BILIRUBIN 2020-11-07 08:41:00 Yuriy Parker [facility] GLUCOSE LEVEL 2020-11-07 08:41:00 Yuriy Parker [facility] BLOOD UREA NITROGEN 2020-11-07 08:41:00 Yuriy Parker [facility] ELECTROLYTE PANEL 2020-11-07 08:41:00 Yuriy Parker [facility] SERUM CREATININE 2020-11-07 08:41:00 Yuriy Parker [facility] .GLOMERULAR FILTRATION 2020-11-07 08:41:00 Yuriy Parker [facility] CALCIUM LEVEL TOTAL 2020-11-07 08:41:00 Yuriy Parker [facility] Results CBC 2020-11-07 08:41:00 Yanet Gurrola [facility] MANUAL DIFFERENTIAL 2020-11-07 08:41:00 Yanet Gurrola [facility] CLOT EXPIRATION DATE 2020-11-07 08:41:00 Randolph Payne [facility] TMP INTERPRETATION 2020-11-07 08:41:00 Randolph Payne [facility] ANTIBODY SCREEN NEGATIVE MD [facility] OSCILLATORY PEP 2020-11-07 07:00:14 [facility] 2020-11-07 01:00:10 [facility] ECHOCARDIOGRAM 2D LIMITED 2020-11-06 19:42:45 [facility] OSCILLATORY PEP 2020-11-06 19:00:13 [facility] 2020-11-06 13:00:14 [facility] HE[facility] PANEL 2020-11-06 08:26:00 Yuriy Parker [facility] COMPREHENSIVE METABOLIC 2020-11-06 08:26:00 Yuriy Parker [facility] PANEL [facility] MAGNESIUM LEVEL 2020-11-06 08:26:00 Yuriy Parker [facility] PHOSPHORUS LEVEL 2020-11-06 08:26:00 Yuriy Parker [facility] LACTATE DEHYDROGENASE 2020-11-06 08:26:00 Yanet Gurrola [facility] COMPLETE BLOOD COUNT W/ 2020-11-06 08:26:00 Yanet Gurrola [facility] DIFFERENTIAL [facility] APTT 2020-11-06 08:26:00 Mari Lovell [facility] URIC ACID 2020-11-06 08:26:00 Mari Lovell [facility] PROTHROMBIN TIME 2020-11-06 08:26:00 Mari Lovell [facility] ALBUMIN LEVEL 2020-11-06 08:26:00 Yuriy Parker [facility] ALKALINE PHOSPHATASE 2020-11-06 08:26:00 Yuriy Parker [facility] ALANINE AMINOTRANSFERASE 2020-11-06 08:26:00 Yuriy Parker [facility] ASPARTATE AMINOTRANSFERASE 2020-11-06 08:26:00 Juan Parker [facility] TOTAL PROTEIN 2020-11-06 08:26:00 Yuriy Parker [facility] FRACTIONATED BILIRUBIN 2020-11-06 08:26:00 Yuriy Parker [facility] GLUCOSE LEVEL 2020-11-06 08:26:00 Yuriy Parker [facility] BLOOD UREA NITROGEN 2020-11-06 08:26:00 Yuriy Parker [facility] ELECTROLYTE PANEL 2020-11-06 08:26:00 Yuriy Parker [facility] SERUM CREATININE 2020-11-06 08:26:00 Yuriy Parker [facility] .GLOMERULAR FILTRATION 2020-11-06 08:26:00 Yuriy Parker [facility] CALCIUM LEVEL TOTAL 2020-11-06 08:26:00 Yuriy Parker [facility] Results CBC 2020-11-06 08:26:00 Yanet Gurrola [facility] MANUAL DIFFERENTIAL 2020-11-06 08:26:00 Yanet Gurrola [facility] OSCILLATORY PEP 2020-11-06 01:00:09 [facility] XR CHEST 1 VW 2020-11-05 20:44:40 Evi Turner [facility] OSCILLATORY PEP 2020-11-05 19:00:05 Blake, [facility] o [facility] OSCILLATORY PEP 2020-11-05 13:00:07 [facility]EL 2020-11-05 07:14:00 Yuriy Parker [facility] COMPREHENSIVE METABOLIC 2020-11-05 07:14:00 Yuriy Parker [facility] PANEL [facility] MAGNESIUM LEVEL 2020-11-05 07:14:00 Yuriy Parker [facility] PHOSPHORUS LEVEL 2020-11-05 07:14:00 Yuriy Parker [facility] LACTATE DEHYDROGENASE 2020-11-05 07:14:00 Yanet Gurrola [facility] COMPLETE BLOOD COUNT W/ 2020-11-05 07:14:00 Yanet Gurrola [facility] DIFFERENTIAL [facility] URIC ACID 2020-11-05 07:14:00 Mari Lovell [facility] ALBUMIN LEVEL 2020-11-05 07:14:00 Yuriy Parker [facility] ALKALINE PHOSPHATASE 2020-11-05 07:14:00 Yuriy Parker [facility] ALANINE AMINOTRANSFERASE 2020-11-05 07:14:00 Yuryi Parker [facility] ASPARTATE AMINOTRANSFERASE 2020-11-05 07:14:00 Juan Parker [facility] TOTAL PROTEIN 2020-11-05 07:14:00 Yuriy Parker [facility] FRACTIONATED BILIRUBIN 2020-11-05 07:14:00 Yuriy Parker [facility] GLUCOSE LEVEL 2020-11-05 07:14:00 Yuriy Parker [facility] BLOOD UREA NITROGEN 2020-11-05 07:14:00 Yruiy Parker [facility] ELECTROLYTE PANEL 2020-11-05 07:14:00 Yuriy Parker [facility] SERUM CREATININE 2020-11-05 07:14:00 Yuriy Parker [facility] .GLOMERULAR FILTRATION 2020-11-05 07:14:00 Yuriy Parker [facility] RATE [facility] CALCIUM LEVEL TOTAL 2020-11-05 07:14:00 Yuriy Parker [facility] Results CBC 2020-11-05 07:14:00 Yanet Gurrola [facility] MANUAL DIFFERENTIAL 2020-11-05 07:14:00 Yanet Gurrola [facility] OSCILLATORY PEP 2020-11-05 02:07:06 Hayden [facility] HEPATIC FUNCTION PANEL 2020-11-04 08:46:00 Yuriy Parker [facility] COMPREHENSIVE METABOLIC 2020-11-04 08:46:00 Yuriy Parker [facility] MAGNESIUM LEVEL 2020-11-04 08:46:00 Yuriy Parker [facility] PHOSPHORUS LEVEL 2020-11-04 08:46:00 Yuriy Parker [facility] LACTATE DEHYDROGENASE 2020-11-04 08:46:00 Yanet Gurrola [facility] COMPLETE BLOOD COUNT W/ 2020-11-04 08:46:00 Yanet Gurrola [facility] TYPE AND SCREEN 2020-11-04 08:46:00 Vania Pascual [facility] URIC ACID 2020-11-04 08:46:00 Mari Lovell [facility] ABORH 2020-11-04 08:46:00 Randolph Payne [facility] ANTIBODY SCREEN 2020-11-04 08:46:00 Dion[facility] ALBUMIN LEVEL 2020-11-04 08:46:00 Yuriy Parker [facility] ALKALINE PHOSPHATASE 2020-11-04 08:46:00 [facility] ALANINE AMINOTRANSFERASE 2020-11-04 08:46:00 Yuriy Parker [facility] ASPARTATE AMINOTRANSFERASE 2020-11-04 08:46:00 Juan Parker [facility] TOTAL PROTEIN 2020-11-04 08:46:00 Yuriy Parker [facility] FRACTIONATED BILIRUBIN 2020-11-04 08:46:00 Yuriy Parker [facility] GLUCOSE LEVEL 2020-11-04 08:46:00 Yuriy Parker [facility] BLOOD UREA NITROGEN 2020-11-04 08:46:00 Yuriy Parker [facility] ELECTROLYTE PANEL 2020-11-04 08:46:00 Yuriy Parker [facility] SERUM CREATININE 2020-11-04 08:46:00 Yuriy Parker [facility] .GLOMERULAR FILTRATION 2020-11-04 08:46:00 Yuriy Parker [facility] RATE [facility] CALCIUM LEVEL TOTAL 2020-11-04 08:46:00 Yuriy Parker [facility] Results CBC 2020-11-04 08:46:00 Yanet Gurrola [facility] MANUAL DIFFERENTIAL 2020-11-04 08:46:00 Yanet Gurrola [facility] CLOT EXPIRATION DATE 2020-11-04 08:46:00 Randolph Payne [facility] TMP INTERPRETATION 2020-11-04 08:46:00 Randolph Payne [facility] ANTIBODY SCREEN NEGATIVE MD [facility] POC GLUCOSE SCREEN 2020-11-04 04:28:00 [facility] (SARS-COV-2) 2020-11-03 11:37:00 [facility] PCR-ASYMPTOMATIC [facility] HEPATIC FUNCTION PANEL 2020-11-03 08:10:00 Yuriy Parker [facility] COMPREHENSIVE METABOLIC 2020-11-03 08:10:00 Yuriy Parker [facility] MAGNESIUM LEVEL 2020-11-03 08:10:00 Yuriy Parker [facility] PHOSPHORUS LEVEL 2020-11-03 08:10:00 Yuriy Parker [facility] LACTATE DEHYDROGENASE 2020-11-03 08:10:00 Yanet Gurrola [facility] COMPLETE BLOOD COUNT W/ 2020-11-03 08:10:00 Yanet [facility]rola [facility] DI[facility]ENTIAL [facility] APTT 2020-11-03 08:10:00 Mari Lovell [facility] URIC ACID 2020-11-03 08:10:00 Mari Lovell [facility] PROTHROMBIN TIME 2020-11-03 08:10:00 Mari Lovell [facility] ALBUMIN LEVEL 2020-11-03 08:10:00 Yuriy Parker [facility] ALKALINE PHOSPHATASE 2020-11-03 08:10:00 [facility]uri[facility] ALANINE AMINOTRANSFERASE 2020-11-03 08:10:00 Yuriy Parker [facility] ASPARTATE AMINOTRANSFERASE 2020-11-03 08:10:00 Juan Parker [facility] TOTAL PROTEIN 2020-11-03 08:10:00 Yuriy Parker [facility] FRACTIONATED BILIRUBIN 2020-11-03 08:10:00 Yuriy Parker [facility] GLUCOSE LEVEL 2020-11-03 08:10:00 Yuriy Parker [facility] BLOOD UREA NITROGEN 2020-11-03 08:10:00 Yuriy Parker [facility] ELECTROLYTE PANEL 2020-11-03 08:10:00 Yuriy Parker [facility] SERUM CREATININE 2020-11-03 08:10:00 Yuriy Parker [facility] .GLOMERULAR FILTRATION 2020-11-03 08:10:00 Yuriy Parker [facility] CALCIUM LEVEL TOTAL 2020-11-03 08:10:00 Yuriy Parker [facility] Results CBC 2020-11-03 08:10:00 Yanet Gurrola [facility] MANUAL DIFFERENTIAL 2020-11-03 08:10:00 Yanet Gurrola [facility] RIGHT HEART CATH 2020-11-02 15:17:00 Cj Coyne [facility] POC OXIMETRY VENOUS 2020-11-02 15:00:00 [facility] OXIMETRY VENOUS 2020-11-02 14:57:00 [facility] APTT 2020-11-02 09:41:00 Cj Coyne [facility] PROTHROMBIN TIME 2020-11-02 09:41:00 Cj Coyne [facility] IMMATURE PLATELET FRACTION 2020-11-02 09:41:00 Cj Coyne [facility] RETICULOCYTE COUNT 2020-11-02 09:41:00 Cj Coyne [facility] AUTOMATED [facility] HEPATIC FUNCTION PANEL 2020-11-02 09:41:00 Yuriy Parker [facility] COMPREHENSIVE METABOLIC 2020-11-02 09:41:00 Yuriy Parker [facility] MAGNESIUM LEVEL 2020-11-02 09:41:00 Yuriy Parker [facility] PHOSPHORUS LEVEL 2020-11-02 09:41:00 Yuriy Parker [facility] LACTATE DEHYDROGENASE 2020-11-02 09:41:00 [facility] COMPLETE BLOOD COUNT W/ 2020-11-02 09:41:00 Yanet Gurrola [facility] DIFFERENTIAL [facility] URIC ACID 2020-11-02 09:41:00 Mari Lovell [facility] ALBUMIN LEVEL 2020-11-02 09:41:00 Yuriy Parker [facility] ALKALINE PHOSPHATASE 2020-11-02 09:41:00 Yuriy [facility] ALANINE AMINOTRANSFERASE 2020-11-02 09:41:00 Yuriy Parker [facility] ASPARTATE AMINOTRANSFERASE 2020-11-02 09:41:00 Juan Parker [facility] TOTAL PROTEIN 2020-11-02 09:41:00 Yuriy Parker [facility] FRACTIONATED BILIRUBIN 2020-11-02 09:41:00 Yuriy Parker [facility] GLUCOSE LEVEL 2020-11-02 09:41:00 Yuriy Parker [facility] BLOOD UREA NITROGEN 2020-11-02 09:41:00 Yuriy Parker [facility] ELECTROLYTE PANEL 2020-11-02 09:41:00 Yuriy Parker [facility] SERUM CREATININE 2020-11-02 09:41:00 Yuriy Parker [facility] .GLOMERULAR FILTRATION 2020-11-02 09:41:00 Yuriy Parker [facility] RATE [facility] CALCIUM LEVEL TOTAL 2020-11-02 09:41:00 Yuriy Parker [facility] Results CBC 2020-11-02 09:41:00 Yanet Gurrola [facility] MANUAL DIFFERENTIAL 2020-11-02 09:41:00 Yanet Gurrola [facility] TRANSFUSE RED BLOOD CELLS 2020-11-01 16:00:00 Kristina Blake [facility] PREPARE RBC 2020-11-01 11:07:00 Kristina Blake Tate o [facility] PRBC PRODUCT READY FOR 2020-11-01 11:07:00 Kristina Blake [facility] AMMONIA DISTILLER [facility] VRE CULTURE 2020-11-01 10:36:00 Yuriy Parker [facility] HEPATIC FUNCTION PANEL 2020-11-01 09:56:00 Yuriy Parker [facility] COMPREHENSIVE METABOLIC 2020-11-01 09:56:00 Yuriy Parker [facility] MAGNESIUM LEVEL 2020-11-01 09:56:00 Yuriy Parker [facility] PHOSPHORUS LEVEL 2020-11-01 09:56:00 Yuriy Parker [facility] LACTATE DEHYDROGENASE 2020-11-01 09:56:00 Yanet Gurrola [facility] COMPLETE BLOOD COUNT W/ 2020-11-01 09:56:00 Yanet Gurrola Uni [facility] TYPE AND SCREEN 2020-11-01 09:56:00 Vania Pascual [facility] URIC ACID 2020-11-01 09:56:00 Mari Lovell [facility] ABORH 2020-11-01 09:56:00 [facility] ANTIBODY SCREEN 2020-11-01 09:56:[facility] 2020-11-01 09:56:00 Yuriy Parker [facility] ALKALINE PHOSPHATASE 2020-11-01 09:56:00 Yuriy Parker [facility] ALANINE AMINOTRANSFERASE 2020-11-01 09:56:00 Yuriy Parker [facility] ASPARTATE AMINOTRANSFERASE 2020-11-01 09:56:00 Juan Parker [facility] TOTAL PROTEIN 2020-11-01 09:56:00 Yuriy Parker [facility] FRACTIONATED BILIRUBIN 2020-11-01 09:56:00 Yuriy Parker [facility] GLUCOSE LEVEL 2020-11-01 09:56:00 Yuriy Parker [facility] BLOOD UREA NITROGEN 2020-11-01 09:56:00 Yuri[facility] ELECTROLYTE PANEL 2020-11-01 09:56:00 [facility] Parker [facility] SERUM CREATININE 2020-11-01 09:56:00 Yuriy Parker [facility] .GLOMERULAR FILTRATION 2020-11-01 09:56:00 Yuriy Parker [facility] RATE [facility] CALCIUM LEVEL TOTAL 2020-11-01 09:56:00 Yuriy Parker [facility] Results CBC 2020-11-01 09:56:00 Yanet Gurrola [facility] MANUAL DIFFERENTIAL 2020-11-01 09:56:00 Yanet Gurrola [facility] CLOT EXPIRATION DATE 2020-11-01 09:56:00 Randolph Payne [facility] TMP INTERPRETATION 2020-11-01 09:56:00 Randolph Payne [facility] ANTIBODY SCREEN NEGATIVE MD [facility] NT PRO BNP 2020-10-31 09:13:00 Mari Lovell [facility] HEPATIC FUNCTION PANEL 2020-10-31 09:13:00 Yuriy Parker [facility] COMPREHENSIVE METABOLIC 2020-10-31 09:13:00 Yuriy Parker [facility] PANEL [facility] MAGNESIUM LEVEL 2020-10-31 09:13:00 Yuriy Parker [facility] PHOSPHORUS LEVEL 2020-10-31 09:13:00 Yuriy Parker [facility] LACTATE DEHYDROGENASE 2020-10-31 09:13:00 Yanet Gurrola [facility] COMPLETE BLOOD COUNT W/ 2020-10-31 09:13:00 Yanet Gurrola [facility] DIFFERENTIAL [facility] URIC ACID 2020-10-31 09:13:00 Mari Lovell [facility] ALBUMIN LEVEL 2020-10-31 09:13:00 Yuriy Parker [facility] ALKALINE PHOSPHATASE 2020-10-31 09:13:00 [facility] ALANINE AMINOTRANSFERASE 2020-10-31 09:13:00 Yuriy Parker [facility] ASPARTATE AMINOTRANSFERASE 2020-10-31 09:13:00 Juan Parker [facility] TOTAL PROTEIN 2020-10-31 09:13:00 Yuriy Parekr [facility] FRACTIONATED BILIRUBIN 2020-10-31 09:13:00 Yuriy Parker [facility] GLUCOSE LEVEL 2020-10-31 09:13:00 Yuriy Parker [facility] BLOOD UREA NITROGEN 2020-10-31 09:13:00 Yuriy Parker [facility] ELECTROLYTE PANEL 2020-10-31 09:13:00 Yuriy Parker [facility] SERUM CREATININE 2020-10-31 09:13:00 Yuriy Parker [facility] .GLOMERULAR FILTRATION 2020-10-31 09:13:00 Yuriy Parker [facility] CALCIUM LEVEL TOTAL 2020-10-31 09:13:00 Yuriy Parker [facility] Results CBC 2020-10-31 09:13:00 Yanet Gurrola [facility] MANUAL DIFFERENTIAL 2020-10-31 09:13:00 Yanet Gurrola [facility] TRANSFUSE RED BLOOD CELLS 2020-10-30 20:20:00 Kristina [facility] URINALYSIS MICROSCOPIC 2020-10-30 18:46:00 Kristina Blake [facility] MICROALBUMIN/CREATININE 2020-10-30 18:46:00 Denny Nayak [facility] RATIO, URINE [facility] PROTEIN / CREATININE RATIO 2020-10-30 18:46:00 [facility] ALBUMIN LEVEL URINE 2020-10-30 18:46:00 Cory Hickman [facility] URINALYSIS WITH 2020-10-30 18:46:00 Kristina Blake [facility] [place] MICROSCOPIC IF INDICATED MD Thompson aldo [facility] LOWER RESPIRATORY CULTURE 2020-10-30 18:46:00 [facility] W/ GRAM STAIN [facility] POC GLUCOSE SCREEN 2020-10-30 14:02:00 [facility] 2020-10-30 09:21:00 [facility] PRBC PRODUCT READY FOR 2020-10-30 09:21:00 Kristina [facility] AMMONIA DISTILLER [facility] HEPATIC FUNCTION PANEL 2020-10-30 08:45:00 Yuriy Parker [facility] COMPREHENSIVE METABOLIC 2020-10-30 08:45:00 Yuriy Parker [facility] PANEL [facility] MAGNESIUM LEVEL 2020-10-30 08:45:00 Yuriy Parker [facility] PHOSPHORUS LEVEL 2020-10-30 08:45:00 Yuriy Parker [facility] LACTATE DEHYDROGENASE 2020-10-30 08:45:00 Yanet Gurrola [facility] COMPLETE BLOOD COUNT W/ 2020-10-30 08:45:00 Yanet Gurrola [facility] DIFFERENTIAL [facility] APTT 2020-10-30 08:45:00 Mari Lovell [facility] URIC ACID 2020-10-30 08:45:00 Mari Lovell [facility] PROTHROMBIN TIME 2020-10-30 08:45:00 Mari Lovell [facility] ALBUMIN LEVEL 2020-10-30 08:45:00 Yuriy Parker [facility] ALKALINE PHOSPHATASE 2020-10-30 08:45:00 [facility]uri[facility] ALANINE AMINOTRANSFERASE 2020-10-30 08:45:00 Yuriy Parker [facility] ASPARTATE AMINOTRANSFERASE 2020-10-30 08:45:00 Juan Parker [facility] TOTAL PROTEIN 2020-10-30 08:45:00 Yuriy Parker [facility] FRACTIONATED BILIRUBIN 2020-10-30 08:45:00 Yuriy Parker [facility] GLUCOSE LEVEL 2020-10-30 08:45:00 Yuriy Parker [facility] BLOOD UREA NITROGEN 2020-10-30 08:45:00 Yuriy Parker [facility] ELECTROLYTE PANEL 2020-10-30 08:45:00 Yuriy Parker [facility] SERUM CREATININE 2020-10-30 08:45:00 Yuriy Parker [facility] .GLOMERULAR FILTRATION 2020-10-30 08:45:00 Yuriy Parker [facility] CALCIUM LEVEL TOTAL 2020-10-30 08:45:00 Yuriy Parker [facility] Results CBC 2020-10-30 08:45:00 Yanet Gurrola [facility] MANUAL DIFFERENTIAL 2020-10-30 08:45:00 Yanet Gurrola [facility] POC GLUCOSE SCREEN 2020-10-30 05:05:00 [facility]SE SCREEN 2020-10-29 22:56:00 [facility] ECHOCARDIOGRAM 2D COMPLETE 2020-10-29 16:59:06 Tre Banerjee [facility] POC GLUCOSE SCREEN 2020-10-29 16:54:00 [facility]den [facility] POC GLUCOSE SCREEN 2020-10-29 13:00:00 [facility] HEPATIC FUNCTION PANEL 2020-10-29 09:26:00 Yuriy Parker [facility] COMPREHENSIVE METABOLIC 2020-10-29 09:26:00 Yuriy Parker [facility] PANEL [facility] MAGNESIUM LEVEL 2020-10-29 09:26:00 Yuriy Parker [facility] PHOSPHORUS LEVEL 2020-10-29 09:26:00 Yuriy Parker [facility] LACTATE DEHYDROGENASE 2020-10-29 09:26:00 Yanet [facility]rola [facility] COMPLETE BLOOD COUNT W/ 2020-10-29 09:26:00 [facility] TYPE AND SCREEN 2020-10-29 09:26:00 Vania Pascual [facility] URIC ACID 2020-10-29 09:26:00 Mari Lovell [facility] ABORH 2020-10-29 09:26:00 Randolph Payne E Tate o [facility] ANTIBODY SCREEN 2020-10-29 09:26:00 Randolph Payne E Tate o [facility] ALBUMIN LEVEL 2020-10-29 09:26:00 Yuriy Parker [facility] ALKALINE PHOSPHATASE 2020-10-29 09:26:00 Yuriy Parker [facility] ALANINE AMINOTRANSFERASE 2020-10-29 09:26:00 Yuriy Parker [facility] ASPARTATE AMINOTRANSFERASE 2020-10-29 09:26:00 Juan Parker [facility] TOTAL PROTEIN 2020-10-29 09:26:00 Yuriy Parker [facility] FRACTIONATED BILIRUBIN 2020-10-29 09:26:00 Yuriy Parker [facility] GLUCOSE LEVEL 2020-10-29 09:26:00 Yuriy Parker [facility] BLOOD UREA NITROGEN 2020-10-29 09:26:00 Yuriy Parker [facility] ELECTROLYTE PANEL 2020-10-29 09:26:00 Yuriy Parker [facility] SERUM CREATININE 2020-10-29 09:26:00 Yuriy Parker [facility] .GLOMERULAR FILTRATION 2020-10-29 09:26:00 Yuriy Parker [facility] RATE [facility] CALCIUM LEVEL TOTAL 2020-10-29 09:26:00 Yuriy Parker [facility] Results CBC 2020-10-29 09:26:00 Yanet Gurrola [facility] MANUAL DIFFERENTIAL 2020-10-29 09:26:00 Yanet Gurrola [facility] CLOT EXPIRATION DATE 2020-10-29 09:26:00 Randolph Payne [facility] TMP INTERPRETATION 2020-10-29 09:26:00 [facility] NEGATIVE MD [facility] TMP CROSSMATCH 2020-10-29 09:26:00 Randolph Payne Tate o [facility] INTERPRETATION [facility] OSCILLATORY PEP 2020-10-29 07:00:13 Darryl Banerjee Tate o [facility] OSCILLATORY PEP 2020-10-29 01:00:[address] [facility] POC GLUCOSE SCREEN 2020-10-28 22:29:00 [facility] OSCILLATORY PEP 2020-10-28 19:00:21 Lavonne [facility] POC GLUCOSE SCREEN 2020-10-28 17:17:00 [facility] PROTEIN / CREATININE RATIO 2020-10-28 17:14:00 Denny Nayak [facility] URINE [facility] MICROALBUMIN/CREATININE 2020-10-28 17:14:00 Denny Nayak [facility] RATIO, URINE [facility] ALBUMIN LEVEL URINE 2020-10-28 17:14:00 [facility] 2020-10-28 15:56:00 Lavonne [facility] XR CHEST 1 VW PORTABLE 2020-10-28 15:46:00 [facility] POC GLUCOSE SCREEN 2020-10-28 14:25:00 [facility]den [facility] POC GLUCOSE SCREEN 2020-10-28 13:58:00 [facility] HEPATIC FUNCTION PANEL 2020-10-28 09:39:00 Yuriy Parker [facility] COMPREHENSIVE METABOLIC 2020-10-28 09:39:00 Yuriy Parker [facility] PANEL [facility] MAGNESIUM LEVEL 2020-10-28 09:39:00 Yuriy Parker [facility] PHOSPHORUS LEVEL 2020-10-28 09:39:00 Yuriy Parker [facility] LACTATE DEHYDROGENASE 2020-10-28 09:39:00 Yanet Gurrola [facility] COMPLETE BLOOD COUNT W/ 2020-10-28 09:39:00 Yanet Gurrola [facility] [place] DIFFERENTIAL [facility] URIC ACID 2020-10-28 09:39:00 Mari Lovell [facility] ALBUMIN LEVEL 2020-10-28 09:39:00 Yuriy Parker [facility] ALKALINE PHOSPHATASE 2020-10-28 09:39:00 Yuriy Parker [facility] ALANINE AMINOTRANSFERASE 2020-10-28 09:39:00 uYriy Parker [facility] ASPARTATE AMINOTRANSFERASE 2020-10-28 09:39:00 Juan Parker [facility] TOTAL PROTEIN 2020-10-28 09:39:00 Yuriy Parker [facility] FRACTIONATED BILIRUBIN 2020-10-28 09:39:00 Yuriy Parker [facility] GLUCOSE LEVEL 2020-10-28 09:39:00 Yuriy Parker [facility] BLOOD UREA NITROGEN 2020-10-28 09:39:00 Y[facility] ELECTROLYTE PANEL 2020-10-28 09:39:00 Y[facility]y Parker [facility] SERUM CREATININE 2020-10-28 09:39:00 Yuriy Parker [facility] .GLOMERULAR FILTRATION 2020-10-28 09:39:00 Yuriy Parker [facility] CALCIUM LEVEL TOTAL 2020-10-28 09:39:00 Yuriy Parker [facility] Results CBC 2020-10-28 09:39:00 Yanet Gurrola [facility] MANUAL DIFFERENTIAL 2020-10-28 09:39:00 Yanet Gurrola [facility] OSCILLATORY PEP 2020-10-28 07:00:14 [facility] GLUCOSE SCREEN 2020-10-28 05:15:00 [facility] OSCILLATORY PEP 2020-10-28 01:00:07 [facility], 12-LEAD (PORTABLE) 2020-10-28 00:00:00 Tre Banerjee [facility] POC GLUCOSE SCREEN 2020-10-27 23:00:00 [facility] OSCILLATORY PEP 2020-10-27 19:00:51 [facility] COVID-19 (SARS-COV-2) 2020-10-27 17:51:00 Randolph Payne [facility] PCR-ASYMPTOMATIC [facility] URINE CULTURE 2020-10-27 17:22:00 Mari Lovell [facility] POC GLUCOSE SCREEN 2020-10-27 16:36:00 [facility] TOBRAMYCIN LEVEL RANDOM 2020-10-27 14:55:00 Kaykay Dodd [facility] POC GLUCOSE SCREEN 2020-10-27 10:18:00 Randolph Payne [facility] HBV DNA QUANT 2020-10-27 08:32:00 Mari Lovell [facility] PROTHROMBIN TIME 2020-10-27 08:32:00 Yuriy Parker [facility] APTT 2020-10-27 08:32:00 Yuriy Parker [facility] HEPATIC FUNCTION PANEL 2020-10-27 08:32:00 Yuriy Parker [facility] COMPREHENSIVE METABOLIC 2020-10-27 08:32:00 Yuriy Parker [facility] PANEL [facility] MAGNESIUM LEVEL 2020-10-27 08:32:00 Yuriy Parker [facility] PHOSPHORUS LEVEL 2020-10-27 08:32:00 Yuriy Parker [facility] LACTATE DEHYDROGENASE 2020-10-27 08:32:00 Yanet Gurrola [facility] FERRITIN LVL 2020-10-27 08:32:00 Yanet Gurrola [facility] COMPLETE BLOOD COUNT W/ 2020-10-27 08:32:00 Yanet Gurrola [facility] DIFFERENTIAL [facility] ALBUMIN LEVEL 2020-10-27 08:32:00 Yuriy Parker [facility] ALKALINE PHOSPHATASE 2020-10-27 08:32:00 [facility] ALANINE AMINOTRANSFERASE 2020-10-27 08:32:00 Yuriy Parker [facility] ASPARTATE AMINOTRANSFERASE 2020-10-27 08:32:00 Juan Parker [facility] TOTAL PROTEIN 2020-10-27 08:32:00 Yuriy Parker [facility] FRACTIONATED BILIRUBIN 2020-10-27 08:32:00 Yuriy Parker [facility] GLUCOSE LEVEL 2020-10-27 08:32:00 Yuriy Parker [facility] BLOOD UREA NITROGEN 2020-10-27 08:32:00 Yuriy [facility] ELECTROLYTE PANEL 2020-10-27 08:32:00 Yuriy Parker [facility] SERUM CREATININE 2020-10-27 08:32:00 Yuriy Parker [facility] .GLOMERULAR FILTRATION 2020-10-27 08:32:00 Yuriy Parker [facility] RATE [facility] CALCIUM LEVEL TOTAL 2020-10-27 08:32:00 Yuriy Parker [facility] Results CBC 2020-10-27 08:32:00 Yanet Gurrola [facility] MANUAL DIFFERENTIAL 2020-10-27 08:32:00 Yanet Gurrola [facility] POC GLUCOSE SCREEN 2020-10-27 04:53:00 Randolph Payne [facility] OSCILLATORY PEP 2020-10-27 01:00:08 [facility] URINALYSIS MICROSCOPIC 2020-10-26 22:41:00 Mari Loevll [facility] URINALYSIS WITH 2020-10-26 22:41:00 Randolph Payne [facility] MICROSCOPIC IF INDICATED MD [facility] POC GLUCOSE SCREEN 2020-10-26 22:23:00 Randolph Payne [facility] OSCILLATORY PEP 2020-10-26 19:00:45 [facility] POC GLUCOSE SCREEN 2020-10-26 16:14:00 Randolph Payne [facility] OSCILLATORY PEP 2020-10-26 13:00:[address] [facility] POC GLUCOSE SCREEN 2020-10-26 11:02:00 Randolph Payne [facility] [place] PROTHROMBIN TIME 2020-10-26 09:43:00 Yuriy Parker [facility] APTT 2020-10-26 09:43:00 Yuriy Parker [facility] HEPATIC FUNCTION PANEL 2020-10-26 09:43:00 Yuriy Parker [facility] COMPREHENSIVE METABOLIC 2020-10-26 09:43:00 Yuriy Parker [facility] PANEL [facility] MAGNESIUM LEVEL 2020-10-26 09:43:00 Yuriy Parker [facility] PHOSPHORUS LEVEL 2020-10-26 09:43:00 [facility] LACTATE DEHYDROGENASE 2020-10-26 09:43:00 [facility] FERRITIN LVL 2020-10-26 09:43:00 Yanet Gurorla [facility] COMPLETE BLOOD COUNT W/ 2020-10-26 09:43:00 Yanet [facility]rol[facility] DIFFERENTIAL [facility] TYPE AND SCREEN 2020-10-26 09:43:00 Vania Pascual [facility] ABORH 2020-10-26 09:43:00 [facility] ANTIBODY SCREEN 2020-10-26 09:43:00 [facility] ALBUMIN LEVEL 2020-10-26 09:43:00 Yuriy Parker [facility] ALKALINE PHOSPHATASE 2020-10-26 09:43:00 [facility]uri[facility] ALANINE AMINOTRANSFERASE 2020-10-26 09:43:00 Yuriy Parker [facility] ASPARTATE AMINOTRANSFERASE 2020-10-26 09:43:00 Juan Parker [facility] TOTAL PROTEIN 2020-10-26 09:43:00 Yuriy Parker [facility] FRACTIONATED BILIRUBIN 2020-10-26 09:43:00 Yuriy Parker [facility] GLUCOSE LEVEL 2020-10-26 09:43:00 Yuriy Parker [facility] BLOOD UREA NITROGEN 2020-10-26 09:43:00 Yuriy Parker [facility] ELECTROLYTE PANEL 2020-10-26 09:43:00 Yuriy Parker [facility] SERUM CREATININE 2020-10-26 09:43:00 [facility] .GLOMERULAR FILTRATION 2020-10-26 09:43:00 Yuriy Parker [facility] RATE [facility] CALCIUM LEVEL TOTAL 2020-10-26 09:43:00 Yuriy Parker [facility] Results CBC 2020-10-26 09:43:00 Yanet Gurrola [facility] MANUAL DIFFERENTIAL 2020-10-26 09:43:00 Yanet Gurrola [facility] TMP INTERPRETATION 2020-10-26 09:43:00 Randolph Payne [facility] ANTIBODY SCREEN NEGATIVE MD [facility] CLOT EXPIRATION DATE 2020-10-26 09:43:00 Randolph Payne [facility] OSCILLATORY PEP 2020-10-26 07:00:22 [facility] POC GLUCOSE SCREEN 2020-10-26 06:29:00 Randolph [facility] OSCILLATORY PEP 2020-10-26 01:00:19 [facility] POC GLUCOSE SCREEN 2020-10-25 23:13:00 Randolph [facility] VRE CULTURE 2020-10-25 21:51:00 Yuriy Parker [facility] POC GLUCOSE SCREEN 2020-10-25 17:26:00 Randolph Payne [facility] TRANSFUSE RED BLOOD CELLS 2020-10-25 17:05:00 Randolph [facility] OSCILLATORY PEP 2020-10-25 13:00:10 Darryl Banerjee [facility] PREPARE RBC 2020-10-25 12:49:00 Randolph Payne [facility] PRBC PRODUCT READY FOR 2020-10-25 12:49:00 Randolph Payne [facility] AMMONIA DISTILLER [facility] POC GLUCOSE SCREEN 2020-10-25 11:03:00 aRndolph Payne [facility] PROTHROMBIN TIME 2020-10-25 10:07:00 Yuriy Parker [facility] APTT 2020-10-25 10:07:00 Yuriy Parker [facility] HEPATIC FUNCTION PANEL 2020-10-25 10:07:00 Yuriy Parker [facility] COMPREHENSIVE METABOLIC 2020-10-25 10:07:00 Yuriy Parker [facility] PANEL [facility] MAGNESIUM LEVEL 2020-10-25 10:07:00 Yuriy Parker [facility] PHOSPHORUS LEVEL 2020-10-25 10:07:00 Yuriy Parker [facility] LACTATE DEHYDROGENASE 2020-10-25 10:07:00 [facility] FERRITIN LVL 2020-10-25 10:07:00 Yanet Gurrola [facility] COMPLETE BLOOD COUNT W/ 2020-10-25 10:07:00 [facility]rol[facility] DIFFERENTIAL [facility] ALBUMIN LEVEL 2020-10-25 10:07:00 Yuriy Parker [facility] ALKALINE PHOSPHATASE 2020-10-25 10:07:00 [facility]uriy Parker [facility] ALANINE AMINOTRANSFERASE 2020-10-25 10:07:00 Yuriy Parker [facility] ASPARTATE AMINOTRANSFERASE 2020-10-25 10:07:00 Juan Parker [facility] TOTAL PROTEIN 2020-10-25 10:07:00 Yuriy Parker [facility] FRACTIONATED BILIRUBIN 2020-10-25 10:07:00 Yuriy Parker [facility] GLUCOSE LEVEL 2020-10-25 10:07:00 Yuriy Parker [facility] BLOOD UREA NITROGEN 2020-10-25 10:07:00 Yuriy Parker [facility] ELECTROLYTE PANEL 2020-10-25 10:07:00 Yuriy Parker [facility] SERUM CREATININE 2020-10-25 10:07:00 Yuriy Parker [facility] .GLOMERULAR FILTRATION 2020-10-25 10:07:00 Yuriy Parker [facility] CALCIUM LEVEL TOTAL 2020-10-25 10:07:00 Yuriy Parker [facility] Results CBC 2020-10-25 10:07:00 Yanet Gurrola [facility] MANUAL DIFFERENTIAL 2020-10-25 10:07:00 Yanet Gurrola [facility] POC GLUCOSE SCREEN 2020-10-25 05:20:00 Randolph Payne [facility] OSCILLATORY PEP 2020-10-25 01:00:12 BanerjeeBruno betancourtFormerly [facility] o f [facility] EKG, 12-LEAD (PORTABLE) 2020-10-25 00:00:00 Avila Head [facility] POC GLUCOSE SCREEN 2020-10-24 22:56:00 Randolph Payne [facility] POC GLUCOSE SCREEN 2020-10-24 17:13:00 Randolph Payne [facility] OSCILLATORY PEP 2020-10-24 13:00:10 Darryl Banerjee [facility] o f [facility] POC GLUCOSE SCREEN 2020-10-24 10:35:00 Randolph Payne [facility] PROTHROMBIN TIME 2020-10-24 09:49:00 Yuriy Parker [facility] APTT 2020-10-24 09:49:00 Yuriy Parker [facility] HEPATIC FUNCTION PANEL 2020-10-24 09:49:00 Yuriy Parker [facility] COMPREHENSIVE METABOLIC 2020-10-24 09:49:00 Yuriy Parker [facility] PANEL [facility] MAGNESIUM LEVEL 2020-10-24 09:49:00 Yuriy Parker [facility] PHOSPHORUS LEVEL 2020-10-24 09:49:00 Yuriy Parker [facility] LACTATE DEHYDROGENASE 2020-10-24 09:49:00 Yanet Gurrola [facility] FERRITIN LVL 2020-10-24 09:49:00 Yanet Gurrola [facility] COMPLETE BLOOD COUNT W/ 2020-10-24 09:49:00 [facility]rol[facility] DIFFERENTIAL [facility] ALBUMIN LEVEL 2020-10-24 09:49:00 Yuriy Parker [facility] ALKALINE PHOSPHATASE 2020-10-24 09:49:00 [facility]uri[facility] Parker [facility] ALANINE AMINOTRANSFERASE 2020-10-24 09:49:00 Yuriy Parker [facility] ASPARTATE AMINOTRANSFERASE 2020-10-24 09:49:00 Juan Parker [facility] TOTAL PROTEIN 2020-10-24 09:49:00 Yuriy Parker [facility] FRACTIONATED BILIRUBIN 2020-10-24 09:49:00 Yuriy Parker [facility] GLUCOSE LEVEL 2020-10-24 09:49:00 Yuriy Parker [facility] BLOOD UREA NITROGEN 2020-10-24 09:49:00 Yuriy Parker [facility] ELECTROLYTE PANEL 2020-10-24 09:49:00 Yuriy Parker [facility] SERUM CREATININE 2020-10-24 09:49:00 Yuriy Parker [facility] .GLOMERULAR FILTRATION 2020-10-24 09:49:00 Yuriy Parker [facility] RATE [facility] CALCIUM LEVEL TOTAL 2020-10-24 09:49:00 Yuriy Parker [facility] Results CBC 2020-10-24 09:49:00 Yanet Gurrola [facility] MANUAL DIFFERENTIAL 2020-10-24 09:49:00 Yanet Gurrola [facility] POC GLUCOSE SCREEN 2020-10-24 05:35:00 Randolph Payne [facility] OSCILLATORY PEP 2020-10-24 01:00:14 [facility] POC GLUCOSE SCREEN 2020-10-23 23:05:00 Randolph Payne [facility] OSCILLATORY PEP 2020-10-23 19:00:51 Banerjee, [facility] US LEG VENOUS DOPPLER 2020-10-23 18:44:00 Yuriy Parker [facility] BILATERAL [facility] XR ABDOMEN 1 VW PORTABLE 2020-10-23 17:11:33 Yuriy Parker [facility] POC GLUCOSE SCREEN 2020-10-23 17:03:00 Randolph Payne [facility] OSCILLATORY PEP 2020-10-23 13:00:16 Darryl Banerjee [facility] POC GLUCOSE SCREEN 2020-10-23 11:37:00 Randolph Payne [facility] PROTHROMBIN TIME 2020-10-23 08:59:00 Yuriy Parker [facility] APTT 2020-10-23 08:59:00 Yuriy Parker [facility] HEPATIC FUNCTION PANEL 2020-10-23 08:59:00 Yuriy Parker [facility] COMPREHENSIVE METABOLIC 2020-10-23 08:59:00 Yuriy Parker [facility] PANEL [facility] MAGNESIUM LEVEL 2020-10-23 08:59:00 Yuriy Parker [facility] PHOSPHORUS LEVEL 2020-10-23 08:59:00 Yuriy Parker [facility] LACTATE DEHYDROGENASE 2020-10-23 08:59:00 Yanet Gurrola [facility] FERRITIN LVL 2020-10-23 08:59:00 Yanet Gurrola [facility] COMPLETE BLOOD COUNT W/ 2020-10-23 08:59:00 Yanet Gurrola [facility] DIFFERENTIAL [facility] TYPE AND SCREEN 2020-10-23 08:59:00 Vania Pascual [facility] ABORH 2020-10-23 08:59:00 Randolph Payne [facility] ANTIBODY SCREEN 2020-10-23 08:59:00 Randolph Payne [facility] ALBUMIN LEVEL 2020-10-23 08:59:00 Yuriy Parker [facility] ALKALINE PHOSPHATASE 2020-10-23 08:59:00 [facility] ALANINE AMINOTRANSFERASE 2020-10-23 08:59:00 Yuriy Parker [facility] ASPARTATE AMINOTRANSFERASE 2020-10-23 08:59:00 Juan Parker [facility] TOTAL PROTEIN 2020-10-23 08:59:00 Yuriy Parker [facility] FRACTIONATED BILIRUBIN 2020-10-23 08:59:00 Yuriy Parker [facility] GLUCOSE LEVEL 2020-10-23 08:59:00 Yuriy Parker [facility] BLOOD UREA NITROGEN 2020-10-23 08:59:00 Yuriy Parker [facility] ELECTROLYTE PANEL 2020-10-23 08:59:00 [facility]uri[facility] Parker [facility] SERUM CREATININE 2020-10-23 08:59:00 Yuriy Parker [facility] .GLOMERULAR FILTRATION 2020-10-23 08:59:00 Yuriy Parker [facility] CALCIUM LEVEL TOTAL 2020-10-23 08:59:00 Yuriy Parker [facility] Results CBC 2020-10-23 08:59:00 Yanet Gurrola [facility] MANUAL DIFFERENTIAL 2020-10-23 08:59:00 Yanet Gurrola [facility] CLOT EXPIRATION DATE 2020-10-23 08:59:00 [facility] TMP INTERPRETATION 2020-10-23 08:59:00 [facility] [place] ANTIBODY SCREEN NEGATIVE MD [facility] TMP CROSSMATCH 2020-10-23 08:59:00 Randolph Payne [facility] INTERPRETATION [facility] [place] OSCILLATORY PEP 2020-10-23 07:00:20 Lavonne [facility] POC GLUCOSE SCREEN 2020-10-23 05:11:00 Randolph Payne [facility] URINALYSIS WITH 2020-10-23 04:37:00 Yuriy Parker [facility] MICROSCOPIC IF INDICATED MD [facility] URINALYSIS MICROSCOPIC 2020-10-23 04:37:00 Yuriy Parker [facility] [place] OSCILLATORY PEP 2020-10-23 01:00:13 Lavonne [facility] POC GLUCOSE SCREEN 2020-10-23 00:03:00 Randolph Payne [facility] XR ABDOMEN 1 VW PORTABLE 2020-10-22 21:53:42 Yuriy Parker [facility] er Center OSCILLATORY PEP 2020-10-22 19:00:[address] [facility] POC GLUCOSE SCREEN 2020-10-22 17:08:00 Randolph Payne [facility] XR CHEST 1 VW PORTABLE 2020-10-22 14:41:55 Yuriy Parker [facility] er Center CT CHEST WO CONTRAST 2020-10-22 13:09:11 Yanet Gurrola [facility] OSC[facility] PEP 2020-10-22 13:00:17 Lavonne [facility] POC GLUCOSE SCREEN 2020-10-22 11:24:00 Randolph Payne [facility] [place] HC CENT/MARKOS CATH VENOUS 2020-10-22 08:28:00 Randolph Payne Uni [facility] Center MANUAL DIFFERENTIAL 2020-10-22 08:28:00 Randolph Payne [facility] PROTHROMBIN TIME 2020-10-22 07:01:00 Yuriy Parker [facility] APTT 2020-10-22 07:01:00 Yuriy Parker [facility] HEPATIC FUNCTION PANEL 2020-10-22 07:01:00 Yuriy Parker [facility] COMPREHENSIVE METABOLIC 2020-10-22 07:01:00 Yuriy Parker [facility] PANEL [facility] MAGNESIUM LEVEL 2020-10-22 07:01:00 Yuriy Parker [facility] PHOSPHORUS LEVEL 2020-10-22 07:01:00 Yuriy Parker [facility] LACTATE DEHYDROGENASE 2020-10-22 07:01:00 Yanet Gurrola [facility] FERRITIN LVL 2020-10-22 07:01:00 Yanet Gurrola [facility] ALBUMIN LEVEL 2020-10-22 07:01:00 Yuriy Parker [facility] ALKALINE PHOSPHATASE 2020-10-22 07:01:00 [facility] ALANINE AMINOTRANSFERASE 2020-10-22 07:01:00 Yuriy Parker [facility] ASPARTATE AMINOTRANSFERASE 2020-10-22 07:01:00 Juan Parker [facility] TOTAL PROTEIN 2020-10-22 07:01:00 Yuriy Parker [facility] FRACTIONATED BILIRUBIN 2020-10-22 07:01:00 Yuriy Parker [facility] GLUCOSE LEVEL 2020-10-22 07:01:00 Yuriy Parker [facility] BLOOD UREA NITROGEN 2020-10-22 07:01:00 Yuriy [facility] ELECTROLYTE PANEL 2020-10-22 07:01:00 Yuriy Parker [facility] SERUM CREATININE 2020-10-22 07:01:00 Yuriy Parker [facility] .GLOMERULAR FILTRATION 2020-10-22 07:01:00 Yuriy Parker [facility] RATE [facility] CALCIUM LEVEL TOTAL 2020-10-22 07:01:00 Yuriy Parker [facility] OSCILLATORY PEP 2020-10-22 07:00:20 [facility] OSCILLATORY PEP 2020-10-22 01:00:12 [facility] POC GLUCOSE SCREEN 2020-10-21 23:10:00 Randolph Payne [facility] OSCILLATORY PEP 2020-10-21 19:00:52 [facility] GASTROINTESTINAL MULTIPLEX 2020-10-21 18:49:00 Yanet Gurrola [facility] PANEL PATH REVIEW [facility] C DIFFICILE DNA ASSAY 2020-10-21 18:49:00 Yanet Gurrola [facility] GASTROINTESTINAL MULTIPLEX 2020-10-21 18:49:00 Yanet Gurrola [facility] PANEL [facility] C DIFFICILE DNA ASSAY PATH 2020-10-21 18:49:00 Yanet Gurrola [facility] REVIEW [facility] POC GLUCOSE SCREEN 2020-10-21 17:13:00 [facility] POC GLUCOSE SCREEN 2020-10-21 11:15:00 Randolph Payne [facility] PROTHROMBIN TIME 2020-10-21 09:51:00 Parker, Lavinne E [facility] APTT 2020-10-21 09:51:00 Yuriy Parker [facility] HEPATIC FUNCTION PANEL 2020-10-21 09:51:00 Yuriy Parker [facility] COMPREHENSIVE METABOLIC 2020-10-21 09:51:00 Yuriy Parker [facility] PANEL [facility] MAGNESIUM LEVEL 2020-10-21 09:51:00 Yuriy Parker [facility] PHOSPHORUS LEVEL 2020-10-21 09:51:00 Yuriy Parker [facility] LACTATE DEHYDROGENASE 2020-10-21 09:51:00 Yanet Gurrola [facility] FERRITIN LVL 2020-10-21 09:51:00 Yanet Gurrola [facility] COMPLETE BLOOD COUNT W/ 2020-10-21 09:51:00 Yanet Gurrola [facility] DIFFERENTIAL [facility] ALBUMIN LEVEL 2020-10-21 09:51:00 Yuriy Parker [facility] ALKALINE PHOSPHATASE 2020-10-21 09:51:00 [facility]uriy Parker [facility] ALANINE AMINOTRANSFERASE 2020-10-21 09:51:00 Yuriy Parker [facility] ASPARTATE AMINOTRANSFERASE 2020-10-21 09:51:00 Juan Parker [facility] TOTAL PROTEIN 2020-10-21 09:51:00 Yuriy Parker [facility] FRACTIONATED BILIRUBIN 2020-10-21 09:51:00 Yuriy Parker [facility] GLUCOSE LEVEL 2020-10-21 09:51:00 Yuriy Parker [facility] BLOOD UREA NITROGEN 2020-10-21 09:51:00 Yuriy Parker [facility] ELECTROLYTE PANEL 2020-10-21 09:51:00 Yuriy Parker [facility] SERUM CREATININE 2020-10-21 09:51:00 Yuriy Parker [facility] .GLOMERULAR FILTRATION 2020-10-21 09:51:00 Yuriy Parker [facility] RATE [facility] CALCIUM LEVEL TOTAL 2020-10-21 09:51:00 Yuriy Parker [facility] Results CBC 2020-10-21 09:51:00 Yanet Gurrola [facility] MANUAL DIFFERENTIAL 2020-10-21 09:51:00 Yanet Gurrola [facility] CT ABDOMEN PELVIS WO 2020-10-21 05:16:13 Yanet Gurrola [facility] CONTRAST [facility] POC GLUCOSE SCREEN 2020-10-21 03:33:00 Randolph Payne [facility] OSCILLATORY PEP 2020-10-21 01:00:15 Lavonne [facility] LOWER RESPIRATORY CULTURE 2020-10-21 00:26:00 Parisa Andrews [facility] W/ GRAM STAIN [facility] POC GLUCOSE SCREEN 2020-10-20 22:16:00 Randolph Payne [facility] OSCILLATORY PEP 2020-10-20 19:00:59 [facility] COVID-19 (SARS-COV-2) 2020-10-20 17:18:00 Banerjee, [facility] PCR-ASYMPTOMATIC [facility] URINE CULTURE 2020-10-20 17:05:00 Yanet Gurrola [facility] XR ABDOMEN 1 VW PORTABLE 2020-10-20 15:36:17 [facility] POC GLUCOSE SCREEN 2020-10-20 14:39:00 Randolph Payne [facility] OSCILLATORY PEP 2020-10-20 13:00:15 [facility] PROTHROMBIN TIME 2020-10-20 09:17:00 Yuriy Parker [facility] APTT 2020-10-20 09:17:00 Yuriy Parker [facility] HEPATIC FUNCTION PANEL 2020-10-20 09:17:00 Yuriy Parker [facility] COMPREHENSIVE METABOLIC 2020-10-20 09:17:00 Yuriy Parker [facility] PANEL [facility] MAGNESIUM LEVEL 2020-10-20 09:17:00 Yuriy Parker [facility] PHOSPHORUS LEVEL 2020-10-20 09:17:00 Yuriy Pakrer [facility] LACTATE DEHYDROGENASE 2020-10-20 09:17:00 Yanet Gurrola [facility] FERRITIN LVL 2020-10-20 09:17:00 Yanet Gurrola [facility] COMPLETE BLOOD COUNT W/ 2020-10-20 09:17:00 Yanet Gurrola [facility] DIFFERENTIAL [facility] TYPE AND SCREEN 2020-10-20 09:17:00 Yuriy Parker [facility] ALBUMIN LEVEL 2020-10-20 09:17:00 Yuriy Parker [facility] ALKALINE PHOSPHATASE 2020-10-20 09:17:00 [facility] ALANINE AMINOTRANSFERASE 2020-10-20 09:17:00 Yuriy Parker [facility] ASPARTATE AMINOTRANSFERASE 2020-10-20 09:17:00 Juan Parker [facility] TOTAL PROTEIN 2020-10-20 09:17:00 Yuriy Parker [facility] FRACTIONATED BILIRUBIN 2020-10-20 09:17:00 Yuriy Parker [facility] GLUCOSE LEVEL 2020-10-20 09:17:00 Yuriy Parker [facility] BLOOD UREA NITROGEN 2020-10-20 09:17:00 Yuriy Parker [facility] ELECTROLYTE PANEL 2020-10-20 09:17:00 Yuriy Parker [facility] SERUM CREATININE 2020-10-20 09:17:00 Yuriy Parker [facility] .GLOMERULAR FILTRATION 2020-10-20 09:17:00 Yuriy Parker [facility] CALCIUM LEVEL TOTAL 2020-10-20 09:17:00 Yuriy Parker [facility] Results CBC 2020-10-20 09:17:00 Yanet Gurrola [facility] MANUAL DIFFERENTIAL 2020-10-20 09:17:00 Yanet Gurrola [facility] ABORH 2020-10-20 09:17:00 Yuriy Parker [facility] ANTIBODY SCREEN 2020-10-20 09:17:00 Yuriy Parker [facility] CLOT EXPIRATION DATE 2020-10-20 09:17:00 [facility] TMP INTERPRETATION 2020-10-20 09:17:00 Yuriy Parker [facility] ANTIBODY SCREEN NEGATIVE MD [facility] POC GLUCOSE SCREEN 2020-10-20 09:10:00 [facility]P 2020-10-20 07:00:20 [facility] POC GLUCOSE SCREEN 2020-10-20 01:35:00 Darryl Banerjee [facility] [place] OSCILLATORY PEP 2020-10-20 01:00:14 Darryl Banerjee [facility] [place] XR ABDOMEN 1 VW PORTABLE 2020-10-19 22:38:50 [facility] [place] XR CHEST 1 VW 2020-10-19 22:37:03 Yanet Gurrola [facility] URINALYSIS MICROSCOPIC 2020-10-19 19:34:00 Yanet Gurrola [facility] URINALYSIS WITH 2020-10-19 19:34:00 [facility] IF INDICATED MD [facility] POC GLUCOSE SCREEN 2020-10-19 19:16:00 Darryl Banerjee [facility] [place] OSCILLATORY PEP 2020-10-19 19:00:55 [facility] RED BLOOD CELLS 2020-10-19 18:35:00 Darryl [facility] FERRITIN LVL 2020-10-19 16:25:00 Yanet Gurrola [facility] LACTATE DEHYDROGENASE 2020-10-19 16:25:00 [facility] OSCILLATORY PEP 2020-10-19 13:00:17 [facility] POC GLUCOSE SCREEN 2020-10-19 12:23:00 Darryl Banerjee [facility] [place] PREPARE RBC 2020-10-19 10:10:00 [facility] PRBC PRODUCT READY FOR 2020-10-19 10:10:00 Darryl [facility]jee [facility] AMMONIA DISTILLER [facility] BLOOD UREA NITROGEN 2020-10-19 09:25:00 Yuriy Parker [facility] ELECTROLYTE PANEL 2020-10-19 09:25:00 Yuriy Parker [facility] SERUM CREATININE 2020-10-19 09:25:00 Yuriy Parker [facility] .GLOMERULAR FILTRATION 2020-10-19 09:25:00 Yuriy Parker [facility] CALCIUM LEVEL TOTAL 2020-10-19 09:25:00 Y[facility] PROTHROMBIN TIME 2020-10-19 09:25:00 Yuriy Parker [facility] APTT 2020-10-19 09:25:00 Yuriy Parker [facility] HEPATIC FUNCTION PANEL 2020-10-19 09:25:00 Yuriy Parker [facility] COMPLETE BLOOD COUNT W/ 2020-10-19 09:25:00 Yuriy Parker [facility] COMPREHENSIVE METABOLIC 2020-10-19 09:25:00 Yuriy Parker [facility] MAGNESIUM LEVEL 2020-10-19 09:25:00 Yuriy Parker [facility] PHOSPHORUS LEVEL 2020-10-19 09:25:00 Yuriy Parker [facility] LACTIC ACID, VENOUS 2020-10-19 09:25:00 Y[facility]y [facility] ALBUMIN LEVEL 2020-10-19 09:25:00 Yuriy Parker [facility] ALKALINE PHOSPHATASE 2020-10-19 09:25:00 Yuriy Parker [facility] ALANINE AMINOTRANSFERASE 2020-10-19 09:25:00 Yuriy Parker [facility] ASPARTATE AMINOTRANSFERASE 2020-10-19 09:25:00 Juan Parker [facility] TOTAL PROTEIN 2020-10-19 09:25:00 Yuriy Parker [facility] FRACTIONATED BILIRUBIN 2020-10-19 09:25:00 Yuriy Parker [facility] GLUCOSE LEVEL 2020-10-19 09:25:00 Yuriy Parker [facility] POC GLUCOSE SCREEN 2020-10-19 06:20:00 Lavonne [facility] OSCILLATORY PEP 2020-10-19 01:00:15 Lavonne [facility] POC GLUCOSE SCREEN 2020-10-19 00:48:00 [facility] V[facility] 2020-10-18 21:11:00 Yuriy Parker [facility] POC GLUCOSE SCREEN 2020-10-18 17:19:00 Lavonne [facility] OSCILLATORY PEP 2020-10-18 13:00:10 Lavonne [facility] POC GLUCOSE SCREEN 2020-10-18 09:55:00 [facility] PROTHROMBIN TIME 2020-10-18 09:09:00 Yuriy Parker [facility] [place] APTT 2020-10-18 09:09:00 Yuriy Parker [facility] HEPATIC FUNCTION PANEL 2020-10-18 09:09:00 Yuriy Parker [facility] COMPLETE BLOOD COUNT W/ 2020-10-18 09:09:00 Yuriy Parker [facility] COMPREHENSIVE METABOLIC 2020-10-18 09:09:00 Yuriy Parker [facility] MAGNESIUM LEVEL 2020-10-18 09:09:00 Yuriy Parker [facility] PHOSPHORUS LEVEL 2020-10-18 09:09:00 Yuriy Parker [facility] LACTIC ACID, VENOUS 2020-10-18 09:09:00 Yuriy Parker [facility] ALBUMIN LEVEL 2020-10-18 09:09:00 Yuriy Parker [facility] ALKALINE PHOSPHATASE 2020-10-18 09:09:00 Yuriy Parker [facility] ALANINE AMINOTRANSFERASE 2020-10-18 09:09:00 Yuriy Parker [facility] ASPARTATE AMINOTRANSFERASE 2020-10-18 09:09:00 Juan Parker E [facility] TOTAL PROTEIN 2020-10-18 09:09:00 Yuriy Parker [facility] FRACTIONATED BILIRUBIN 2020-10-18 09:09:00 Yuriy Parker [facility] GLUCOSE LEVEL 2020-10-18 09:09:00 Yuriy Parker [facility] BLOOD UREA NITROGEN 2020-10-18 09:09:00 Yuriy Parker [facility] ELECTROLYTE PANEL 2020-10-18 09:09:00 Yuriy Parker [facility] SERUM CREATININE 2020-10-18 09:09:00 Yuriy Parker [facility] .GLOMERULAR FILTRATION 2020-10-18 09:09:00 Yuriy Parker [facility] RATE [facility] CALCIUM LEVEL TOTAL 2020-10-18 09:09:00 Yuriy Parker [facility] OSCILLATORY PEP 2020-10-18 07:00:21 [facility] POC GLUCOSE SCREEN 2020-10-18 01:41:00 Darryl Banerjee [facility] OSCILLATORY PEP 2020-10-18 01:00:16 [facility] TRANSFUSE RED BLOOD CELLS 2020-10-17 21:05:00 Darryl [facility] POC GLUCOSE SCREEN 2020-10-17 19:47:00 Lavonne [facility] OSCILLATORY PEP 2020-10-17 19:00:47 Lavonne [facility] HEMODIALYSIS 2020-10-17 17:39:22 Edouard [facility] OSCILLATORY PEP 2020-10-17 16:31:51 Lavonne [facility] PREPARE RBC 2020-10-17 13:21:00 Lavonne [facility] PRBC PRODUCT READY FOR 2020-10-17 13:21:00 Darryl Banerjee [facility] AMMONIA DISTILLER [facility] POC GLUCOSE SCREEN 2020-10-17 12:14:00 Darryl Banerjee [facility] HEPATITIS B SURFACE 2020-10-17 09:16:00 Shraddha Nunn [facility] ANTIGEN, SERUM [facility] PROTHROMBIN TIME 2020-10-17 09:16:00 Yuriy Parker [facility] APTT 2020-10-17 09:16:00 Yuriy Parker [facility] HEPATIC FUNCTION PANEL 2020-10-17 09:16:00 Yuriy Parker [facility] COMPLETE BLOOD COUNT W/ 2020-10-17 09:16:00 Yuriy Parker [facility] COMPREHENSIVE METABOLIC 2020-10-17 09:16:00 Yuriy Parker [facility] MAGNESIUM LEVEL 2020-10-17 09:16:00 Yuriy Parker [facility] PHOSPHORUS LEVEL 2020-10-17 09:16:00 Yuriy Parker [facility] LACTIC ACID, VENOUS 2020-10-17 09:16:00 Yuriy Parker [facility] TYPE AND SCREEN 2020-10-17 09:16:00 Yuriy Parker [facility] ALBUMIN LEVEL 2020-10-17 09:16:00 Yuriy Parker [facility] ALKALINE PHOSPHATASE 2020-10-17 09:16:00 Yuriy [facility] ALANINE AMINOTRANSFERASE 2020-10-17 09:16:00 Yuriy Parker [facility] ASPARTATE AMINOTRANSFERASE 2020-10-17 09:16:00 Juan Parker [facility] TOTAL PROTEIN 2020-10-17 09:16:00 Yuriy Parker [facility] FRACTIONATED BILIRUBIN 2020-10-17 09:16:00 Yuriy Parker [facility] GLUCOSE LEVEL 2020-10-17 09:16:00 Yuriy Parker [facility] BLOOD UREA NITROGEN 2020-10-17 09:16:00 Yuriy Parker [facility] ELECTROLYTE PANEL 2020-10-17 09:16:00 Yuriy Parker [facility] SERUM CREATININE 2020-10-17 09:16:00 Yuriy Parker [facility] .GLOMERULAR FILTRATION 2020-10-17 09:16:00 Yuriy Parker [facility] RATE [facility] CALCIUM LEVEL TOTAL 2020-10-17 09:16:00 Yuriy Parker [facility] ABORH 2020-10-17 09:16:00 Yuriy Parker [facility] ANTIBODY SCREEN 2020-10-17 09:16:00 Yuriy Parker [facility] HEPATITIS B SURFACE AG 2020-10-17 09:16:00 Jose Carlos Burch [facility] W/CONFIRM [facility] TMP INTERPRETATION 2020-10-17 09:16:00 Yuriy Parker [facility] ANTIBODY SCREEN NEGATIVE MD Thompson [facility] CLOT EXPIRATION DATE 2020-10-17 09:16:00 Yuriy [facility] TMP CROSSMATCH 2020-10-17 09:16:00 Yuriy Parker [facility] INTERPRETATION [facility] POC GLUCOSE SCREEN 2020-10-17 05:59:00 Lavonne [facility] POC GLUCOSE SCREEN 2020-10-16 23:06:00 [facility] POC GLUCOSE SCREEN 2020-10-16 18:39:00 Lavonne [facility] POC GLUCOSE SCREEN 2020-10-16 11:19:00 [facility] PROTHROMBIN TIME 2020-10-16 09:10:00 [facility] 2020-10-16 09:10:00 Yuriy Parker [facility] HEPATIC FUNCTION PANEL 2020-10-16 09:10:00 Yuriy Parker [facility] COMPLETE BLOOD COUNT W/ 2020-10-16 09:10:00 Yuriy Parker [facility] INDICES [facility] COMPREHENSIVE METABOLIC 2020-10-16 09:10:00 Yuriy Parker [facility] MAGNESIUM LEVEL 2020-10-16 09:10:00 Yuriy Parker [facility] PHOSPHORUS LEVEL 2020-10-16 09:10:00 Yuriy Parker [facility] LACTIC ACID, VENOUS 2020-10-16 09:10:00 Yuriy Parker [facility] ALBUMIN LEVEL 2020-10-16 09:10:00 Yuriy Parker [facility] ALKALINE PHOSPHATASE 2020-10-16 09:10:00 Yuriy [facility] ALANINE AMINOTRANSFERASE 2020-10-16 09:10:00 Yuriy Parker [facility] ASPARTATE AMINOTRANSFERASE 2020-10-16 09:10:00 Juan Parker E [facility] TOTAL PROTEIN 2020-10-16 09:10:00 Yuriy Parker [facility] FRACTIONATED BILIRUBIN 2020-10-16 09:10:00 Yuriy Parker [facility] GLUCOSE LEVEL 2020-10-16 09:10:00 Yuriy Parker [facility] BLOOD UREA NITROGEN 2020-10-16 09:10:00 Yuriy Parker [facility] ELECTROLYTE PANEL 2020-10-16 09:10:00 Yuriy Parker [facility] SERUM CREATININE 2020-10-16 09:10:00 Yuriy Parker [facility] .GLOMERULAR FILTRATION 2020-10-16 09:10:00 Yuriy Parker [facility] RATE [facility] CALCIUM LEVEL TOTAL 2020-10-16 09:10:00 Yuriy Parker [facility] POC GLUCOSE SCREEN 2020-10-16 05:12:00 [facility]SE [facility]CREEN 2020-10-15 23:20:00 [facility] GLUCOSE SCREEN 2020-10-15 17:52:00 [facility] URINALYSIS MICROSCOPIC 2020-10-15 16:58:00 Shraddha Nunn [facility] URINALYSIS WITH 2020-10-15 16:58:00 Lavonne [facility] MICROSCOPIC IF INDICATED MD [facility] XR CHEST 1 VW PORTABLE 2020-10-15 15:49:03 Mari Lovell [facility] POC GLUCOSE SCREEN 2020-10-15 11:26:00 Darryl Banerjee [facility] HEPATITIS B SURFACE 2020-10-15 09:44:00 Shraddha Nunn [facility] ANTIGEN, SERUM [facility] PROTHROMBIN TIME 2020-10-15 09:44:00 Yuriy Parker [facility] APTT 2020-10-15 09:44:00 Yuriy Parker [facility] HEPATIC FUNCTION PANEL 2020-10-15 09:44:00 Yuriy Parker [facility] COMPLETE BLOOD COUNT W/ 2020-10-15 09:44:00 Yuriy Parker [facility] INDICES [facility] COMPREHENSIVE METABOLIC 2020-10-15 09:44:00 Yuriy Parker [facility] PANEL [facility] MAGNESIUM LEVEL 2020-10-15 09:44:00 Yuriy Parker [facility] PHOSPHORUS LEVEL 2020-10-15 09:44:00 Yuriy Parker [facility] LACTIC ACID, VENOUS 2020-10-15 09:44:00 Yuriy Parker [facility] ALBUMIN LEVEL 2020-10-15 09:44:00 Yuriy Parker [facility] ALKALINE PHOSPHATASE 2020-10-15 09:44:00 Yuriy [facility] ALANINE AMINOTRANSFERASE 2020-10-15 09:44:00 Yuriy Parker [facility] ASPARTATE AMINOTRANSFERASE 2020-10-15 09:44:00 Juan Parker [facility] TOTAL PROTEIN 2020-10-15 09:44:00 Yuriy Parker [facility] FRACTIONATED BILIRUBIN 2020-10-15 09:44:00 Yuriy Parker [facility] GLUCOSE LEVEL 2020-10-15 09:44:00 Yuriy Parker [facility] BLOOD UREA NITROGEN 2020-10-15 09:44:00 Yuriy Parker [facility] ELECTROLYTE PANEL 2020-10-15 09:44:00 Yuriy Parker [facility] SERUM CREATININE 2020-10-15 09:44:00 Yuriy Parker [facility] .GLOMERULAR FILTRATION 2020-10-15 09:44:00 Yuriy Parker [facility] CALCIUM LEVEL TOTAL 2020-10-15 09:44:00 Yuriy Parker [facility] HEPATITIS B SURFACE AG 2020-10-15 09:44:00 Jose Carlos Burch [facility] POC GLUCOSE SCREEN 2020-10-15 04:42:00 [facility] 12-LEAD (PORTABLE) 2020-10-15 00:00:00 Mari [facility] POC GLUCOSE SCREEN 2020-10-14 23:03:00 Darryl Banerjee [facility] TRANSFUSE RED BLOOD CELLS 2020-10-14 20:15:00 Adolfo Portillo [facility] POC GLUCOSE SCREEN 2020-10-14 11:48:00 Darryl Banerjee [facility] POC GLUCOSE SCREEN 2020-10-14 11:28:00 Darryl Banerjee [facility] PREPARE RBC 2020-10-14 10:07:00 Adolfo Portillo [facility] PRBC PRODUCT READY FOR 2020-10-14 10:07:00 Daryrl Banerjee [facility] AMMONIA DISTILLER [facility] PROTHROMBIN TIME 2020-10-14 09:11:00 Yuriy Parker [facility] APTT 2020-10-14 09:11:00 Yuriy Parker [facility] HEPATIC FUNCTION PANEL 2020-10-14 09:11:00 Yuriy Parker [facility] COMPLETE BLOOD COUNT W/ 2020-10-14 09:11:00 Yuriy Parker [facility] INDICES [facility] COMPREHENSIVE METABOLIC 2020-10-14 09:11:00 Yuriy Parker [facility] MAGNESIUM LEVEL 2020-10-14 09:11:00 Yuriy Parker [facility] PHOSPHORUS LEVEL 2020-10-14 09:11:00 Yuriy Parker [facility] LACTIC ACID, VENOUS 2020-10-14 09:11:00 Yuriy Parker [facility] TMP INTERPRETATION 2020-10-14 09:11:00 Yuriy Parker [facility] ANTIBODY SCREEN NEGATIVE MD Thompson [facility] ALBUMIN LEVEL 2020-10-14 09:11:00 Yuriy Parker [facility] ALKALINE PHOSPHATASE 2020-10-14 09:11:00 Yuriy Parker [facility] ALANINE AMINOTRANSFERASE 2020-10-14 09:11:00 Yuriy Parker [facility] ASPARTATE AMINOTRANSFERASE 2020-10-14 09:11:00 Juan Parker [facility] TOTAL PROTEIN 2020-10-14 09:11:00 Yuriy Parker [facility] FRACTIONATED BILIRUBIN 2020-10-14 09:11:00 Yuriy Parker [facility] GLUCOSE LEVEL 2020-10-14 09:11:00 Yuriy Parker [facility] BLOOD UREA NITROGEN 2020-10-14 09:11:00 Yuriy Parker [facility] ELECTROLYTE PANEL 2020-10-14 09:11:00 Yuriy Parker [facility] SERUM CREATININE 2020-10-14 09:11:00 Y[facility] .GLOMERULAR FILTRATION 2020-10-14 09:11:00 Yuriy Parker [facility] CALCIUM LEVEL TOTAL 2020-10-14 09:11:00 Yuriy Parker [facility] ABORH 2020-10-14 09:11:00 Yuriy Parker [facility] ANTIBODY SCREEN 2020-10-14 09:11:00 Yuriy Parker [facility] CLOT EXPIRATION DATE 2020-10-14 09:11:00 Yuriy Parker [facility] POC GLUCOSE SCREEN 2020-10-14 05:30:00 Darryl Banerjee [facility] POC GLUCOSE SCREEN 2020-10-13 22:56:00 [facility] POC GLUCOSE SCREEN 2020-10-13 17:18:00 Darryl Banerjee [facility] COVID-19 (SARS-COV-2) 2020-10-13 16:11:00 Darryl Banerjee [facility] PCR-ASYMPTOMATIC [facility] URINE CULTURE 2020-10-13 13:54:00 Shraddha Nunn [facility] POC GLUCOSE SCREEN 2020-10-13 11:13:00 Darryl Banerjee [facility] PROTHROMBIN TIME 2020-10-13 07:21:00 Yuriy Parker [facility] APTT 2020-10-13 07:21:00 Yuriy Parker [facility] HEPATIC FUNCTION PANEL 2020-10-13 07:21:00 Yuriy Parker [facility] COMPLETE BLOOD COUNT W/ 2020-10-13 07:21:00 Yuriy Parker [facility] COMPREHENSIVE METABOLIC 2020-10-13 07:21:00 Yuriy Parker [facility] MAGNESIUM LEVEL 2020-10-13 07:21:00 Yuriy Parker [facility] PHOSPHORUS LEVEL 2020-10-13 07:21:00 Yuriy Parker [facility] LACTIC ACID, VENOUS 2020-10-13 07:21:00 Yuriy [facility] ALBUMIN LEVEL 2020-10-13 07:21:00 Chano Willams [facility] ALKALINE PHOSPHATASE 2020-10-13 07:21:00 Chano Willams [facility] ALANINE AMINOTRANSFERASE 2020-10-13 07:21:00 Chano [facility] ASPARTATE AMINOTRANSFERASE 2020-10-13 07:21:00 [facility] TOTAL PROTEIN 2020-10-13 07:21:00 Chano Willams o [facility] FRACTIONATED BILIRUBIN 2020-10-13 07:21:00 Chano Willams [facility] GLUCOSE LEVEL 2020-10-13 07:21:00 [facility] BLOOD UREA NITROGEN 2020-10-13 07:21:00 [facility] ELECTROLYTE PANEL 2020-10-13 07:21:00 Cem [facility] SERUM CREATININE 2020-10-13 07:21:00 Cem [facility] .GLOMERULAR FILTRATION 2020-10-13 07:21:00 [facility] CALCIUM LEVEL TOTAL 2020-10-13 07:21:00 [facility] XR CHEST 1 VW PORTABLE 2020-10-13 07:17:52 Yuriy Parker [facility] POC GLUCOSE SCREEN 2020-10-13 04:57:00 Darryl Banerjee [facility] [place] XR ABDOMEN 1 VW PORTABLE 2020-10-13 03:29:00 Kevin [facility] POC GLUCOSE SCREEN 2020-10-12 22:53:00 Alba Puga [facility] POC GLUCOSE SCREEN 2020-10-12 16:45:00 Alba Puga [facility] LACTIC ACID, VENOUS 2020-10-12 13:24:00 Imer, Chano [facility] POC GLUCOSE SCREEN 2020-10-12 10:59:00 Alba Puga [facility] ARTERIAL BLOOD GAS 2020-10-12 09:48:00 Kevin Hernandez [facility] XR CHEST 1 VW PORTABLE 2020-10-12 06:38:14 Yuriy Parker [facility] LACTIC ACID, VENOUS 2020-10-12 06:28:00 Chano Willams [facility] PROTHROMBIN TIME 2020-10-12 06:28:00 Yuriy Parker [facility] APTT 2020-10-12 06:28:00 Yuriy Parker [facility] HEPATIC FUNCTION PANEL 2020-10-12 06:28:00 Yuriy Parker [facility] COMPLETE BLOOD COUNT W/ 2020-10-12 06:28:00 Yuriy Parker [facility] VANCOMYCIN LEVEL RANDOM 2020-10-12 06:28:00 Gerardo Krishnan [facility] COMPREHENSIVE METABOLIC 2020-10-12 06:28:00 Yuriy Parker [facility] MAGNESIUM LEVEL 2020-10-12 06:28:00 Yuriy Parker [facility] PHOSPHORUS LEVEL 2020-10-12 06:28:00 Yuriy Parker [facility] ALBUMIN LEVEL 2020-10-12 06:28:00 Chano Willams [facility] ALKALINE PHOSPHATASE 2020-10-12 06:28:00 Chano Willams [facility] ALANINE AMINOTRANSFERASE 2020-10-12 06:28:00 Chano Willams [facility] ASPARTATE AMINOTRANSFERASE 2020-10-12 06:28:00 [facility] T[facility] PROTEIN 2020-10-12 06:28:00 Chano Willams o [facility] FRACTIONATED BILIRUBIN 2020-10-12 06:28:00 [facility] GLUCOSE LEVEL 2020-10-12 06:28:00 Cme [facility] BLOOD UREA NITROGEN 2020-10-12 06:28:00 [facility] ELECTROLYTE PANEL 2020-10-12 06:28:00 [facility] SERUM CREATININE 2020-10-12 06:28:00 Cem [facility] .GLOMERULAR FILTRATION 2020-10-12 06:28:00 [facility] RATE [facility] CALCIUM LEVEL TOTAL 2020-10-12 06:28:00 [facility] POC GLUCOSE SCREEN 2020-10-12 05:23:00 Alba P[facility] TRANSFUSE RED BLOOD CELLS 2020-10-12 01:40:00 Kiara Patel [facility] LACTIC ACID, VENOUS 2020-10-11 23:06:00 [facility]SE SCREEN 2020-10-11 22:21:00 Alba Puga [facility] PREPARE RBC 2020-10-11 20:51:00 Kiara Patel [facility] PRBC PRODUCT READY FOR 2020-10-11 20:51:00 Alba Puga [facility] AMMONIA DISTILLER [facility] COMPLETE BLOOD COUNT W/ 2020-10-11 20:28:00 Kiara Patel [facility] DIFFERENTIAL [facility] URINALYSIS WITH 2020-10-11 20:28:00 Sen, [facility] [place] MICROSCOPIC IF INDICATED MD [facility] NT PRO BNP 2020-10-11 20:28:00 Alba Puga [facility] Results CBC 2020-10-11 20:28:00 Kiara Patel y [facility] MANUAL DIFFERENTIAL 2020-10-11 20:28:00 Kiara Patel [facility] URINALYSIS MICROSCOPIC 2020-10-11 20:28:00 Timothy Torres [facility] POC GLUCOSE SCREEN 2020-10-11 16:45:00 Alba Puga [facility] LACTIC ACID, VENOUS 2020-10-11 14:11:00 Chano Willams [facility] TYPE AND SCREEN 2020-10-11 11:31:00 Yuriy Parker [facility] ABORH 2020-10-11 11:31:00 Karyn Andre [facility] ANTIBODY SCREEN 2020-10-11 11:31:00 Karyn Andre [facility] CLOT EXPIRATION DATE 2020-10-11 11:31:00 Karyn [facility] INTERPRETATION 2020-10-11 11:31:00 Karyn [facility] ANTIBODY SCREEN NEGATIVE MD [facility] TMP CROSSMATCH 2020-10-11 11:31:00 Karyn Andre [facility] INTERPRETATION [facility] POC GLUCOSE SCREEN 2020-10-11 10:30:00 Alba Puga [facility] XR CHEST 1 VW PORTABLE 2020-10-11 06:30:57 Yuriy Parker [facility] LACTIC ACID, VENOUS 2020-10-11 06:29:00 hCano Willams [facility] PROTHROMBIN TIME 2020-10-11 06:29:00 Yuriy Parker [facility] APTT 2020-10-11 06:29:00 Yuriy Parker [facility] HEPATIC FUNCTION PANEL 2020-10-11 06:29:00 Yuriy Parker [facility] COMPLETE BLOOD COUNT W/ 2020-10-11 06:29:00 Yuriy Parker [facility] INDICES [facility] COMPREHENSIVE METABOLIC 2020-10-11 06:29:00 Yuriy Parker [facility] MAGNESIUM LEVEL 2020-10-11 06:29:00 Yuriy Parker [facility] PHOSPHORUS LEVEL 2020-10-11 06:29:00 Yuriy Parker [facility] ALBUMIN LEVEL 2020-10-11 06:29:00 Chano Willams Tate o [facility] ALKALINE PHOSPHATASE 2020-10-11 06:29:00 Chano Willams [facility] ALANINE AMINOTRANSFERASE 2020-10-11 06:29:00 Chano Willams [facility] ASPARTATE AMINOTRANSFERASE 2020-10-11 06:29:00 Chano Willams [facility] TOTAL PROTEIN 2020-10-11 06:29:00 Chano Willams Tate o [facility] FRACTIONATED BILIRUBIN 2020-10-11 06:29:00 Chano Willams [facility] GLUCOSE LEVEL 2020-10-11 06:29:00 Robyn Priest [facility] BLOOD UREA NITROGEN 2020-10-11 06:29:00 Robyn Priest [facility] ELECTROLYTE PANEL 2020-10-11 06:29:00 Robyn Priest [facility] SERUM CREATININE 2020-10-11 06:29:00 Robyn Priest [facility] .GLOMERULAR FILTRATION 2020-10-11 06:29:00 Robyn Priest [facility] RATE [facility] CALCIUM LEVEL TOTAL 2020-10-11 06:29:00 Robyn Priest [facility] ARTERIAL BLOOD GAS 2020-10-11 06:29:00 Bailey Marshall [facility] POC GLUCOSE SCREEN 2020-10-11 04:48:00 Alba P[facility] POC GLUCOSE SCREEN 2020-10-10 23:30:00 Alba Puga [facility] XR CHEST 1 VW POST IMPLANT 2020-10-10 20:06:00 Alba Puga [facility] POC GLUCOSE SCREEN 2020-10-10 16:51:00 Alba Puga [facility] LACTIC ACID, VENOUS 2020-10-10 15:01:00 [facility]SE SCREEN 2020-10-10 10:59:00 Alba Puga [facility] XR CHEST 1 VW PORTABLE 2020-10-10 06:41:13 Yuriy Parker [facility] GENERAL LABORATORY ADD ON 2020-10-10 06:37:00 Robyn Priest [facility] TEST [facility] PROTHROMBIN TIME 2020-10-10 06:31:00 [facility] APTT 2020-10-10 06:31:00 Yuriy Parker [facility] HEPATIC FUNCTION PANEL 2020-10-10 06:31:00 Yuriy Parker [facility] COMPLETE BLOOD COUNT W/ 2020-10-10 06:31:00 Yuriy Parker [facility] ALBUMIN LEVEL 2020-10-10 06:31:00 Imer Chano Tate o [facility] ALKALINE PHOSPHATASE 2020-10-10 06:31:00 Chano Willams [facility] ALANINE AMINOTRANSFERASE 2020-10-10 06:31:00 [facility] ASPARTATE AMINOTRANSFERASE 2020-10-10 06:31:00 [facility] TOTAL PROTEIN 2020-10-10 06:31:00 Chano Willams Tate o [facility] FRACTIONATED BILIRUBIN 2020-10-10 06:31:00 Cahno Willams [facility] PHOSPHORUS LEVEL 2020-10-10 06:31:00 Chano Willams [facility] MAGNESIUM LEVEL 2020-10-10 06:31:00 Chano Willams [facility] GLUCOSE LEVEL 2020-10-10 06:31:00 Chano Willams [facility] BLOOD UREA NITROGEN 2020-10-10 06:31:00 Chano Willams [facility] ELECTROLYTE PANEL 2020-10-10 06:31:00 Chano Willams [facility] SERUM CREATININE 2020-10-10 06:31:00 Imer Chano [facility] .GLOMERULAR FILTRATION 2020-10-10 06:31:00 Chano Willams [facility] CALCIUM LEVEL TOTAL 2020-10-10 06:31:00 Chano Willams [facility] LACTIC ACID, VENOUS 2020-10-10 06:29:00 Chano Willams [facility] POC GLUCOSE SCREEN 2020-10-10 04:47:00 Alba Puga [facility] POC GLUCOSE SCREEN 2020-10-09 22:49:00 Alba P[facility] POC GLUCOSE SCREEN 2020-10-09 16:12:00 Alba Puga [facility] XR ABDOMEN 1 VW PORTABLE 2020-10-09 14:33:45 Kiara Patel [facility] LACTIC ACID, VENOUS 2020-10-09 13:38:00 Chano Willams [facility] BASIC METABOLIC PANEL, 2020-10-09 13:38:00 Beau Reina [facility] CALCIUM IONIZED [facility] APTT 2020-10-09 13:38:00 Beau Reina [facility] PROTHROMBIN TIME 2020-10-09 13:38:00 Latosha [facility] MAGNESIUM LEVEL 2020-10-09 13:38:00 Latosha Beau [facility] PHOSPHORUS LEVEL 2020-10-09 13:38:00 Latosha [facility] GLUCOSE LEVEL 2020-10-09 13:38:00 Beau Reina [facility] BLOOD UREA NITROGEN 2020-10-09 13:38:00 Beau Reina [facility] ELECTROLYTE PANEL 2020-10-09 13:38:00 Latosha [facility] SERUM CREATININE 2020-10-09 13:38:00 Latosha Beau [facility] .GLOMERULAR FILTRATION 2020-10-09 13:38:00 Beau Reina [facility] RATE [facility] CALCIUM IONIZED, VENOUS 2020-10-09 13:38:00 Beau Reina [facility] POC GLUCOSE SCREEN 2020-10-09 10:28:00 Alba Puga [facility] TRANSFUSE RED BLOOD CELLS 2020-10-09 10:15:00 [facility] RBC 2020-10-09 08:56:00 Robyn Priest [facility] PRBC PRODUCT READY FOR 2020-10-09 08:56:00 Alba Puga [facility] AMMONIA DISTILLER [facility] XR CHEST 1 VW PORTABLE 2020-10-09 08:24:00 Yuriy Parker [facility] LACTIC ACID, VENOUS 2020-10-09 07:36:00 Chano Willams [facility] HEPATITIS B SURFACE 2020-10-09 07:36:00 Shraddha Nunn [facility] ANTIGEN, SERUM [facility] PROTHROMBIN TIME 2020-10-09 07:36:00 Yuriy Parker [facility] APTT 2020-10-09 07:36:00 Yuriy Parker [facility] HEPATIC FUNCTION PANEL 2020-10-09 07:36:00 Yuriy Parker [facility] COMPLETE BLOOD COUNT W/ 2020-10-09 07:36:00 Yuriy Parker [facility] VANCOMYCIN LEVEL RANDOM 2020-10-09 07:36:00 Sudheer Wilson [facility] ALBUMIN LEVEL 2020-10-09 07:36:00 Chano Willams Tate o [facility] ALKALINE PHOSPHATASE 2020-10-09 07:36:00 Chano Willams [facility] ALANINE AMINOTRANSFERASE 2020-10-09 07:36:00 Chano Willams [facility] ASPARTATE AMINOTRANSFERASE 2020-10-09 07:36:00 Chano Willams [facility] TOTAL PROTEIN 2020-10-09 07:36:00 Chano Willams Tate o [facility] FRACTIONATED BILIRUBIN 2020-10-09 07:36:00 Chano Willams [facility] HEPATITIS B SURFACE AG 2020-10-09 07:36:00 Cory Hickman [facility] W/CONFIRM [facility] POC GLUCOSE SCREEN 2020-10-09 04:28:00 Alba P[facility] POC GLUCOSE SCREEN 2020 22:30:00 Alba Puga [facility] LACTIC ACID, VENOUS 2020 20:18:00 Chano Willams [facility] MRSA SCREENING CULTURE 2020 17:27:00 Ellis Cooper [facility] POC GLUCOSE SCREEN 2020 16:26:00 Alba Puga [facility] BLOODCULTURE 2020 15:21:00 Beau Reina [facility] URINE CULTURE 2020 15:21:00 Beau Reina [facility] BLOODCULTURE 2020 15:21:00 Latosha Beau [facility] TYPE AND SCREEN 2020 13:19:00 Yuriy Parker [facility] LACTIC ACID, VENOUS 2020 13:19:00 Chano Willams [facility] BASIC METABOLIC PANEL, 2020 13:19:00 Shraddha Nunn [facility] CALCIUM IONIZED [facility] CALCIUM LEVEL TOTAL 2020 13:19:00 Edouard [facility] PHOSPHORUS LEVEL 2020 13:19:00 Edouard [facility] MAGNESIUM LEVEL 2020 13:19:00 Edouard [facility] ARTERIAL BLOOD GAS 2020 13:19:00 Shraddha Nunn [facility] ABORH 2020 13:19:00 Karyn Andre [facility] ANTIBODY SCREEN 2020 13:19:00 Karyn Andre [facility] CALCIUM IONIZED, VENOUS 2020 13:19:00 Rigo Orantes [facility] GLUCOSE LEVEL 2020 13:19:00 Rigo Orantes [facility] ity [facility] BLOOD UREA NITROGEN 2020 13:19:00 Rigo Orantes [facility] ELECTROLYTE PANEL 2020 13:19:00 Rigo Orantes [facility] SERUM CREATININE 2020 13:19:00 Rigo Orantes [facility] .GLOMERULAR FILTRATION 2020 13:19:00 Rigo Orantes [facility] RATE [facility] COMPLETE BLOOD COUNT W/ 2020 13:19:00 Beau Reina [facility] DIFFERENTIAL [facility] Results CBC 2020 13:19:00 Beau Reina Tate o [facility] MANUAL DIFFERENTIAL 2020 13:19:00 Beau Reina [facility] TMP INTERPRETATION 2020 13:19:00 Karyn Andre [facility] ANTIBODY SCREEN NEGATIVE MD [facility] CLOT EXPIRATION DATE 2020 13:19:00 Karyn Andre [facility] TMP CROSSMATCH 2020 13:19:00 Karyn Andre [facility] INTERPRETATION [facility] POC GLUCOSE SCREEN 2020 11:00:00 Alba Puga [facility] XR CHEST 1 VW PORTABLE 2020 09:07:05 Yuriy Parker [facility] POC GLUCOSE SCREEN 2020 07:33:00 Alba Puga [facility] LACTIC ACID, VENOUS 2020 05:52:00 Chano Willams [facility] BASIC METABOLIC PANEL, 2020 05:52:00 Shraddha Nunn [facility] CALCIUM IONIZED [facility] CALCIUM LEVEL TOTAL 2020 05:52:00 Sen, [facility] PHOSPHORUS LEVEL 2020 05:52:00 Sen, [facility] MAGNESIUM LEVEL 2020 05:52:00 Sen, [facility] o [facility] ARTERIAL BLOOD GAS 2020 05:52:00 Edouard, [facility] PROTHROMBIN TIME 2020 05:52:00 Yuriy Parker [facility] APTT 2020 05:52:00 Yuriy Parker [facility] HEPATIC FUNCTION PANEL 2020 05:52:00 Yuriy Parker [facility] COMPLETE BLOOD COUNT W/ 2020 05:52:00 Yuriy Parker [facility] CALCIUM IONIZED, VENOUS 2020 05:52:00 Rigo Orantes [facility] GLUCOSE LEVEL 2020 05:52:00 Rigo Orantes [facility] BLOOD UREA NITROGEN 2020 05:52:00 Rigo Orantes [facility] ELECTROLYTE PANEL 2020 05:52:00 Rigo Orantes [facility] SERUM CREATININE 2020 05:52:00 Rigo Orantes [facility] .GLOMERULAR FILTRATION 2020 05:52:00 Rigo Orantes [facility] C[facility] ALBUMIN LEVEL 2020 05:52:00 Imer Chano Tate o [facility] ALKALINE PHOSPHATASE 2020 05:52:00 Chano Willams [facility] ALANINE AMINOTRANSFERASE 2020 05:52:00 Chano Willams [facility] ASPARTATE AMINOTRANSFERASE 2020 05:52:00 Chano Willams [facility] TOTAL PROTEIN 2020 05:52:00 Chano Willams Tate o [facility] FRACTIONATED BILIRUBIN 2020 05:52:00 Chano Willams [facility] POC GLUCOSE SCREEN 2020 04:57:00 Alba Puga [facility] POC GLUCOSE SCREEN 2020 03:20:00 Alba Puga [facility] POC GLUCOSE SCREEN 2020 02:13:00 Alba Puga [facility] POC GLUCOSE SCREEN 2020 01:05:00 Alba Puga [facility] POC GLUCOSE SCREEN 2020-10-07 23:26:00 Alba Puga [facility] POC GLUCOSE SCREEN 2020-10-07 22:20:00 Alba Puga [facility] LACTIC ACID, VENOUS 2020-10-07 20:37:00 Chano Willams [facility] BASIC METABOLIC PANEL, 2020-10-07 20:37:00 Shraddha Nunn [facility] CALCIUM IONIZED [facility] CALCIUM LEVEL TOTAL 2020-10-07 20:37:00 Shraddha Nunn [facility] PHOSPHORUS LEVEL 2020-10-07 20:37:00 Shraddha Nunn [facility] MAGNESIUM LEVEL 2020-10-07 20:37:00 Shraddha Nunn o f [facility] ARTERIAL BLOOD GAS 2020-10-07 20:37:00 Shraddha Nunnit y of [facility] CALCIUM IONIZED, VENOUS 2020-10-07 20:37:00 Rigo Orantes [facility] GLUCOSE LEVEL 2020-10-07 20:37:00 R[facility] BLOOD UREA NITROGEN 2020-10-07 20:37:00 Rigo [facility] ELECTROLYTE PANEL 2020-10-07 20:37:00 Rigo Orantes [facility] SERUM CREATININE 2020-10-07 20:37:00 Rigo Orantes [facility] .GLOMERULAR FILTRATION 2020-10-07 20:37:00 Rigo Orantes [facility] POC GLUCOSE SCREEN 2020-10-07 20:24:00 Alba Puga [facility] POC GLUCOSE SCREEN 2020-10-07 19:40:00 Alba Puga [facility] POC GLUCOSE SCREEN 2020-10-07 18:34:00 [facility]ba [facility] POC GLUCOSE SCREEN 2020-10-07 16:24:00 Alba Puga [facility] OSCILLATORY PEP 2020-10-07 15:47:02 Alba Puga [facility] POC GLUCOSE SCREEN 2020-10-07 14:23:00 Alba [facility] LACTIC ACID, VENOUS 2020-10-07 13:35:00 Chano Willams [facility] BASIC METABOLIC PANEL, 2020-10-07 13:35:00 Shraddha Nunn [facility] CALCIUM IONIZED [facility] CALCIUM LEVEL TOTAL 2020-10-07 13:35:00 Edouard, [facility] ty [facility] PHOSPHORUS LEVEL 2020-10-07 13:35:00 Edouard, [facility] MAGNESIUM LEVEL 2020-10-07 13:35:00 Edouard [facility] o [facility] ARTERIAL BLOOD GAS 2020-10-07 13:35:00 Edouard, [facility] CALCIUM IONIZED, VENOUS 2020-10-07 13:35:00 Rigo Orantes [facility] GLUCOSE LEVEL 2020-10-07 13:35:00 Rigo Orantes [facility] BLOOD UREA NITROGEN 2020-10-07 13:35:00 Rigo [facility] ELECTROLYTE PANEL 2020-10-07 13:35:00 Rigo Orantes [facility] SERUM CREATININE 2020-10-07 13:35:00 Rigo Oranteser sity [facility] .GLOMERULAR FILTRATION 2020-10-07 13:35:00 Rigo Orantes [facility] RATE [facility] POC GLUCOSE SCREEN 2020-10-07 12:18:00 Alba Puga [facility] XR CHEST 1 VW PORTABLE 2020-10-07 10:53:00 Yuriy Parker [facility] POC GLUCOSE SCREEN 2020-10-07 10:41:00 Alba Puga [facility] POC GLUCOSE SCREEN 2020-10-07 09:23:00 Alba Puga [facility] POC GLUCOSE SCREEN 2020-10-07 08:41:00 Alba Puga [facility] POC GLUCOSE SCREEN 2020-10-07 07:21:00 Vivien, Alba P [facility] LACTIC ACID, VENOUS 2020-10-07 05:53:00 Chano Willams [facility] BASIC METABOLIC PANEL, 2020-10-07 05:53:00 Shraddha Nunn [facility] CALCIUM IONIZED [facility] CALCIUM LEVEL TOTAL 2020-10-07 05:53:00 Sen, [facility] PHOSPHORUS LEVEL 2020-10-07 05:53:00 Sen, [facility] MAGNESIUM LEVEL 2020-10-07 05:53:00 Sen, [facility] o f [facility] ARTERIAL BLOOD GAS 2020-10-07 05:53:00 Edouard, [facility] PROTHROMBIN TIME 2020-10-07 05:53:00 Yuriy Parker [facility] APTT 2020-10-07 05:53:00 Yuriy Parker [facility] HEPATIC FUNCTION PANEL 2020-10-07 05:53:00 Yuriy Parker [facility] COMPLETE BLOOD COUNT W/ 2020-10-07 05:53:00 Yuriy Parker [facility] CALCIUM IONIZED, VENOUS 2020-10-07 05:53:00 Rigo Orantes [facility] GLUCOSE LEVEL 2020-10-07 05:53:00 Rigo Orantes [facility] BLOOD UREA NITROGEN 2020-10-07 05:53:00 Rigo Orantes [facility] ELECTROLYTE PANEL 2020-10-07 05:53:00 Rigo Orantes [facility] SERUM CREATININE 2020-10-07 05:53:00 Rigo Orantes [facility] .GLOMERULAR FILTRATION 2020-10-07 05:53:00 Rigo Orantes [facility] RATE [facility] ALBUMIN LEVEL 2020-10-07 05:53:00 Chano Willams o [facility] ALKALINE PHOSPHATASE 2020-10-07 05:53:00 [facility] ALANINE AMINOTRANSFERASE 2020-10-07 05:53:00 [facility]ano [facility] ASPARTATE AMINOTRANSFERASE 2020-10-07 05:53:00 Chano Willams [facility] TOTAL PROTEIN 2020-10-07 05:53:00 Chano Willams o [facility] FRACTIONATED BILIRUBIN 2020-10-07 05:53:00 Chano Willams [facility] POC GLUCOSE SCREEN 2020-10-07 04:56:00 Alba P[facility] POC GLUCOSE SCREEN 2020-10-07 03:04:00 Alba Puga [facility] POC GLUCOSE SCREEN 2020-10-07 02:05:00 [facility] [facility] POC GLUCOSE SCREEN 2020-10-07 00:58:00 [facility] POC GLUCOSE SCREEN 2020-10-06 22:56:00 Alba Puga [facility] LACTIC ACID, VENOUS 2020-10-06 21:52:00 Chano Willams [facility] BASIC METABOLIC PANEL, 2020-10-06 21:52:00 Shraddha Nunn [facility] CALCIUM IONIZED [facility] CALCIUM LEVEL TOTAL 2020-10-06 21:52:00 Shraddha Nunn [facility] PHOSPHORUS LEVEL 2020-10-06 21:52:00 Shraddha Nunn [facility] MAGNESIUM LEVEL 2020-10-06 21:52:00 Shraddha Nunn Tate o [facility] ARTERIAL BLOOD GAS 2020-10-06 21:52:00 Shraddha Nunnit y [facility] CALCIUM IONIZED, VENOUS 2020-10-06 21:52:00 Rigo Orantes [facility] GLUCOSE LEVEL 2020-10-06 21:52:00 Rigo Orantes [facility] BLOOD UREA NITROGEN 2020-10-06 21:52:00 [facility] ELECTROLYTE PANEL 2020-10-06 21:52:00 [facility]igo [facility] SERUM CREATININE 2020-10-06 21:52:00 [facility]igo [facility] .GLOMERULAR FILTRATION 2020-10-06 21:52:00 Rigo Orantes [facility] POC GLUCOSE SCREEN 2020-10-06 21:00:00 Alba [facility] POC GLUCOSE SCREEN 2020-10-06 19:58:00 Alba [facility] POC GLUCOSE SCREEN 2020-10-06 19:21:00 Alba [facility] POC GLUCOSE SCREEN 2020-10-06 17:40:00 Alba Puga [facility] POC GLUCOSE SCREEN 2020-10-06 16:14:00 Alba [facility] rsity [facility] COVID-19 (SARS-COV-2) 2020-10-06 15:33:00 Randolph Payne Univedel sity [facility] POC GLUCOSE SCREEN 2020-10-06 14:33:00 Alba [facility] rs[facility] LACTIC ACID, VENOUS 2020-10-06 13:46:00 Chano Willams [facility] BASIC METABOLIC PANEL, 2020-10-06 13:46:00 Shraddha Nunn [facility] CALCIUM IONIZED [facility] CALCIUM LEVEL TOTAL 2020-10-06 13:46:00 Edouard [facility] PHOSPHORUS LEVEL 2020-10-06 13:46:00 Edouard [facility] MAGNESIUM LEVEL 2020-10-06 13:46:00 Edouard [facility] ARTERIAL BLOOD GAS 2020-10-06 13:46:00 Edouard [facility] CALCIUM IONIZED, VENOUS 2020-10-06 13:46:00 Rigo Orantes [facility] GLUCOSE LEVEL 2020-10-06 13:46:00 Rigo Orantes [facility] BLOOD UREA NITROGEN 2020-10-06 13:46:00 Rigo Orantes [facility] ELECTROLYTE PANEL 2020-10-06 13:46:00 Rigo Orantes [facility] SERUM CREATININE 2020-10-06 13:46:00 Rigo Orantes [facility] .GLOMERULAR FILTRATION 2020-10-06 13:46:00 Rigo Orantes [facility] RATE [facility] TRANSFUSE RED BLOOD CELLS 2020-10-06 12:40:00 [facility]UCOSE SCREEN 2020-10-06 12:31:00 Alba Puga [facility] POC GLUCOSE SCREEN 2020-10-06 10:28:00 Randolph Payne [facility] POC GLUCOSE SCREEN 2020-10-06 08:35:00 Randolph Payne [facility] XR CHEST 1 VW PORTABLE 2020-10-06 08:17:51 Yuriy Parker [facility] PREPARE RBC 2020-10-06 08:12:00 Migdalia Kruger [facility] PRBC PRODUCT READY FOR 2020-10-06 08:12:00 Randolph Payne [facility] AMMONIA DISTILLER [facility] POC GLUCOSE SCREEN 2020-10-06 06:34:00 Randolph Payne [facility] LACTIC ACID, VENOUS 2020-10-06 06:05:00 Chano Willams [facility] BASIC METABOLIC PANEL, 2020-10-06 06:05:00 Edouard Shraddha [facility] CALCIUM IONIZED [facility] CALCIUM LEVEL TOTAL 2020-10-06 06:05:00 Edouard [facility] PHOSPHORUS LEVEL 2020-10-06 06:05:00 Edouard [facility] MAGNESIUM LEVEL 2020-10-06 06:05:00 Edouard [facility] ARTERIAL BLOOD GAS 2020-10-06 06:05:00 Edouard [facility] PROTHROMBIN TIME 2020-10-06 06:05:00 Yuriy Parker [facility] APTT 2020-10-06 06:05:00 Yuriy Parker [facility] HEPATIC FUNCTION PANEL 2020-10-06 06:05:00 Yuriy Parker [facility] COMPLETE BLOOD COUNT W/ 2020-10-06 06:05:00 Yuriy Parker [facility] CALCIUM IONIZED, VENOUS 2020-10-06 06:05:00 Rigo Orantes [facility] GLUCOSE LEVEL 2020-10-06 06:05:00 Rigo Orantes [facility] BLOOD UREA NITROGEN 2020-10-06 06:05:00 Rigo Orantes [facility] ELECTROLYTE PANEL 2020-10-06 06:05:00 Rigo Orantes [facility] SERUM CREATININE 2020-10-06 06:05:00 Rigo Orantes [facility] .GLOMERULAR FILTRATION 2020-10-06 06:05:00 Rigo Orantes [facility] RATE [facility] ALBUMIN LEVEL 2020-10-06 06:05:00 Chano Willams Tate o [facility] ALKALINE PHOSPHATASE 2020-10-06 06:05:00 Chano Willams [facility] ALANINE AMINOTRANSFERASE 2020-10-06 06:05:00 Chano Willams [facility] ASPARTATE AMINOTRANSFERASE 2020-10-06 06:05:00 Chano Willams [facility] TOTAL PROTEIN 2020-10-06 06:05:00 Chano Willams Tate o [facility] FRACTIONATED BILIRUBIN 2020-10-06 06:05:00 Chano Willams [facility] POC GLUCOSE SCREEN 2020-10-06 04:40:00 Randolph Payne [facility] POC GLUCOSE SCREEN 2020-10-06 03:36:00 Randolph Payne [facility] POC GLUCOSE SCREEN 2020-10-06 02:23:00 Randolph Payne [facility] POC GLUCOSE SCREEN 2020-10-06 01:31:00 [facility] POC GLUCOSE SCREEN 2020-10-06 00:09:00 Randolph Payne [facility] POC GLUCOSE SCREEN 2020-10-05 23:21:00 Randolph Payne E [facility] POC GLUCOSE SCREEN 2020-10-05 22:15:00 Randolph Payne E [facility] LACTIC ACID, VENOUS 2020-10-05 21:09:00 Chano Willams [facility] BASIC METABOLIC PANEL, 2020-10-05 21:09:00 Edouard Shraddha [facility] CALCIUM IONIZED [facility] CALCIUM LEVEL TOTAL 2020-10-05 21:09:00 Edouard [facility] PHOSPHORUS LEVEL 2020-10-05 21:09:00 Edouard [facility] MAGNESIUM LEVEL 2020-10-05 21:09:00 Edouard [facility] ARTERIAL BLOOD GAS 2020-10-05 21:09:00 [facility]CI[facility] ION[facility]ED, VENOUS 2020-10-05 21:09:00 Rigo Orantes [facility] GLUCOSE LEVEL 2020-10-05 21:09:00 Rigo Orantes [facility] BLOOD UREA NITROGEN 2020-10-05 21:09:00 Rigo Orantes [facility] ELECTROLYTE PANEL 2020-10-05 21:09:00 Rigo Orantes [facility] SERUM CREATININE 2020-10-05 21:09:00 Rigo Orantes [facility] .GLOMERULAR FILTRATION 2020-10-05 21:09:00 Rigo Orantes [facility] POC GLUCOSE SCREEN 2020-10-05 20:28:00 Randolph Payne [facility] POC GLUCOSE SCREEN 2020-10-05 19:20:00 Randolph Payne [facility] POC GLUCOSE SCREEN 2020-10-05 18:05:00 Randolph Payne [facility] POC GLUCOSE SCREEN 2020-10-05 16:37:00 Randolph Payne [facility] LACTIC ACID, VENOUS 2020-10-05 13:48:00 Chano Willams [facility] BASIC METABOLIC PANEL, 2020-10-05 13:48:00 Edouard Shraddha [facility] CALCIUM IONIZED [facility] CALCIUM LEVEL TOTAL 2020-10-05 13:48:00 Edouard [facility] PHOSPHORUS LEVEL 2020-10-05 13:48:00 Edouard, [facility] MAGNESIUM LEVEL 2020-10-05 13:48:00 Edouard [facility] o [facility] ARTERIAL BLOOD GAS 2020-10-05 13:48:00 Edouard [facility] CALCIUM IONIZED, VENOUS 2020-10-05 13:48:00 Rigo Orantes [facility] GLUCOSE LEVEL 2020-10-05 13:48:00 Rigo Orantes [facility] BLOOD UREA NITROGEN 2020-10-05 13:48:00 Rigo Orantes [facility] ELECTROLYTE PANEL 2020-10-05 13:48:00 Rigo Orantes [facility] SERUM CREATININE 2020-10-05 13:48:00 Rigo Orantes [facility] .GLOMERULAR FILTRATION 2020-10-05 13:48:00 Rigo Orantes [facility] RATE [facility] POC GLUCOSE SCREEN 2020-10-05 10:58:00 Randolph Payne [facility] BASIC METABOLIC PANEL, 2020-10-05 09:55:00 Bailey Marshall Uni [facility] CALCIUM IONIZED [facility] MAGNESIUM LEVEL 2020-10-05 09:55:00 Bailey Marshall [facility] PHOSPHORUS LEVEL 2020-10-05 09:55:00 Bailey Marshall [facility] GLUCOSE LEVEL 2020-10-05 09:55:00 Bailey Marshall [facility] BLOOD UREA NITROGEN 2020-10-05 09:55:00 Bailey Marshall Univer sity [facility] ELECTROLYTE PANEL 2020-10-05 09:55:00 Bailey Marshall [facility] SERUM CREATININE 2020-10-05 09:55:00 Bailey Marshall [facility] .GLOMERULAR FILTRATION 2020-10-05 09:55:00 Bailey [facility] CALCIUM IONIZED, VENOUS 2020-10-05 09:55:00 Bailey Marshall [facility] XR CHEST 1 VW PORTABLE 2020-10-05 08:47:48 Yuriy Parker [facility] TYPE AND SCREEN 2020-10-05 08:40:00 Yuriy Parker [facility] ABORH 2020-10-05 08:40:00 Karyn Andre [facility] ANTIBODY SCREEN 2020-10-05 08:40:00 Karyn Andre [facility] CLOT EXPIRATION DATE 2020-10-05 08:40:00 Karyn Andre [facility] TMP INTERPRETATION 2020-10-05 08:40:00 Karyn Andre [facility] ANTIBODY SCREEN NEGATIVE MD [facility] TMP CROSSMATCH 2020-10-05 08:40:00 Karyn Andre [facility] INTERPRETATION [facility] LACTIC ACID, VENOUS 2020-10-05 06:43:00 Chano Willams [facility] MAGNESIUM LEVEL 2020-10-05 06:43:00 Shraddha Nunn o f [facility] ARTERIAL BLOOD GAS 2020-10-05 06:43:00 [facility] PROTHROMBIN TIME 2020-10-05 06:43:00 [facility] APTT 2020-10-05 06:43:00 Yuriy Parker [facility] HEPATIC FUNCTION PANEL 2020-10-05 06:43:00 Yuriy Parker [facility] COMPLETE BLOOD COUNT W/ 2020-10-05 06:43:00 Yuriy Parker [facility] ALBUMIN LEVEL 2020-10-05 06:43:00 Chano Willams Tate o [facility] ALKALINE PHOSPHATASE 2020-10-05 06:43:00 Chano Willams [facility] ALANINE AMINOTRANSFERASE 2020-10-05 06:43:00 Chano Willams [facility] ASPARTATE AMINOTRANSFERASE 2020-10-05 06:43:00 Chano Willams [facility] TOTAL PROTEIN 2020-10-05 06:43:00 Chano Willams Tate o [facility] FRACTIONATED BILIRUBIN 2020-10-05 06:43:00 Chano Willams [facility] POC GLUCOSE SCREEN 2020-10-05 04:22:00 Randolph Payne [facility] POC GLUCOSE SCREEN 2020-10-04 22:35:00 Randolph Payne [facility] TRANSFUSE PLATELETS 2020-10-04 22:15:00 Cecelia Ley [facility] TMP EXCEPTION 2020-10-04 21:45:00 Randolph Payne Tate o [facility] LACTIC ACID, VENOUS 2020-10-04 21:24:00 [facility] 2020-10-04 21:24:00 Shraddha Nunn [facility] BASIC METABOLIC PANEL, 2020-10-04 21:24:00 Cecelia Ley [facility] PHOSPHORUS LEVEL 2020-10-04 21:24:00 Cecelia Ley [facility] GLUCOSE LEVEL 2020-10-04 21:24:00 Cecelia Ley [facility] BLOOD UREA NITROGEN 2020-10-04 21:24:00 Cecelia Ley [facility] ELECTROLYTE PANEL 2020-10-04 21:24:00 Cecelia Ley [facility] SERUM CREATININE 2020-10-04 21:24:00 Cecelia Ley [facility] .GLOMERULAR FILTRATION 2020-10-04 21:24:00 Cecelia Ley [facility] RATE [facility] CALCIUM IONIZED, VENOUS 2020-10-04 21:24:00 Cecelia Ley [facility] MAGNESIUM LEVEL 2020-10-04 21:24:00 Cecelia Ley [facility] PREPARE PLATELETS 2020-10-04 19:15:00 Cecelia Ley [facility] PLT PRODUCT READY FOR PICK 2020-10-04 19:15:00 Randolph Payne [facility] UP [facility] COMPLETE BLOOD COUNT W/ 2020-10-04 17:40:00 Cecelia Ley [facility] DIFFERENTIAL [facility] FIBRINOGEN ACTIVITY 2020-10-04 17:40:00 Cecelia Ley [facility] Results CBC 2020-10-04 17:40:00 Cecelia Ley [facility] MANUAL DIFFERENTIAL 2020-10-04 17:40:00 Cecelia Ley [facility] BLOODCULTURE 2020-10-04 17:06:00 Ran Priest [facility] POC GLUCOSE SCREEN 2020-10-04 16:36:00 Randolph Payne [facility] LACTIC ACID, VENOUS 2020-10-04 13:38:00 Chano Willams [facility] BASIC METABOLIC PANEL, 2020-10-04 13:38:00 Shraddha Nunn [facility] CALCIUM IONIZED [facility] CALCIUM LEVEL TOTAL 2020-10-04 13:38:00 Edouard [facility] PHOSPHORUS LEVEL 2020-10-04 13:38:00 Edouard [facility] MAGNESIUM LEVEL 2020-10-04 13:38:00 Edouard [facility] ARTERIAL BLOOD GAS 2020-10-04 13:38:00 Edouard [facility] CALCIUM IONIZED, VENOUS 2020-10-04 13:38:00 Cory Hickman [facility] GLUCOSE LEVEL 2020-10-04 13:38:00 Cory Hickman [facility] BLOOD UREA NITROGEN 2020-10-04 13:38:00 Cory Hickman [facility] ELECTROLYTE PANEL 2020-10-04 13:38:00 Marylou [facility] SERUM CREATININE 2020-10-04 13:38:00 Marylou [facility] .GLOMERULAR FILTRATION 2020-10-04 13:38:00 Cory Hickman [facility] RATE [facility] POC GLUCOSE SCREEN 2020-10-04 10:57:00 Randolph Payne [facility] VRE CULTURE 2020-10-04 08:33:00 Yuriy Parker [facility] XR CHEST 1 VW PORTABLE 2020-10-04 06:27:00 Yuriy Parker [facility] ARTERIAL BLOOD GAS 2020-10-04 06:05:00 Shraddha Nunn [facility] MAGNESIUM LEVEL 2020-10-04 06:05:00 Edouard [facility] LACTIC ACID, VENOUS 2020-10-04 06:05:00 Chano Willams [facility] BASIC METABOLIC PANEL, 2020-10-04 06:05:00 Ed[facility]ard [facility] CALCIUM IONIZED [facility] CALCIUM LEVEL TOTAL 2020-10-04 06:05:00 Edouard [facility] PHOSPHORUS LEVEL 2020-10-04 06:05:00 Edouard [facility] PROTHROMBIN TIME 2020-10-04 06:05:00 Yuriy Parker [facility] APTT 2020-10-04 06:05:00 Yuriy Parker [facility] HEPATIC FUNCTION PANEL 2020-10-04 06:05:00 Yuriy Parker [facility] COMPLETE BLOOD COUNT W/ 2020-10-04 06:05:00 Yuriy Parker [facility] INDICES [facility] CALCIUM IONIZED, VENOUS 2020-10-04 06:05:00 Cory Hickman [facility] GLUCOSE LEVEL 2020-10-04 06:05:00 Cory Hickman [facility] BLOOD UREA NITROGEN 2020-10-04 06:05:00 Cory Hickman [facility] ELECTROLYTE PANEL 2020-10-04 06:05:00 Marylou [facility] SERUM CREATININE 2020-10-04 06:05:00 Marylou [facility] .GLOMERULAR FILTRATION 2020-10-04 06:05:00 Coyr Hickman [facility] RATE [facility] ALBUMIN LEVEL 2020-10-04 06:05:00 Chano Willams [facility] ALKALINE PHOSPHATASE 2020-10-04 06:05:00 Chano Willams [facility] ALANINE AMINOTRANSFERASE 2020-10-04 06:05:00 Chano Willams [facility] ASPARTATE AMINOTRANSFERASE 2020-10-04 06:05:00 Chano Willams [facility] TOTAL PROTEIN 2020-10-04 06:05:00 Chano Willams [facility] FRACTIONATED BILIRUBIN 2020-10-04 06:05:00 Chano Willams [facility] MAGNESIUM LEVEL 2020-10-04 05:58:00 Chano Willams [facility] POC GLUCOSE SCREEN 2020-10-04 04:24:00 Randolph Payne [facility] POC GLUCOSE SCREEN 2020-10-03 22:23:00 Randolph Payne [facility] LACTIC ACID, VENOUS 2020-10-03 21:07:00 Chano Willams [facility] BASIC METABOLIC PANEL, 2020-10-03 21:07:00 Shraddha Nunn [facility] CALCIUM IONIZED [facility] CALCIUM LEVEL TOTAL 2020-10-03 21:07:00 Edouard [facility] PHOSPHORUS LEVEL 2020-10-03 21:07:00 Edouard [facility] MAGNESIUM LEVEL 2020-10-03 21:07:00 Edouard Shraddha [facility] ARTERIAL BLOOD GAS 2020-10-03 21:07:00 Edouard Shraddha [facility] HEPATITIS B SURFACE 2020-10-03 21:07:00 Edouard [facility] ANTIGEN, SERUM [facility] CALCIUM IONIZED, VENOUS 2020-10-03 21:07:00 Cory Hickman [facility] GLUCOSE LEVEL 2020-10-03 21:07:00 Abudayyeh, [facility] BLOOD UREA NITROGEN 2020-10-03 21:07:00 Cory Hickman [facility] ELECTROLYTE PANEL 2020-10-03 21:07:00 Cory Hickman [facility] SERUM CREATININE 2020-10-03 21:07:00 Marylou [facility] .GLOMERULAR FILTRATION 2020-10-03 21:07:00 Cory Hickman [facility] RATE [facility] HEPATITIS B SURFACE AG 2020-10-03 21:07:00 Rigo Orantes [facility] W/[facility] POC GLUCOSE SCREEN 2020-10-03 17:17:00 Randolph Payne [facility] LACTIC ACID, VENOUS 2020-10-03 13:51:00 Chano Willams [facility] BASIC METABOLIC PANEL, 2020-10-03 13:51:00 Shraddha Nunn [facility] CALCIUM IONIZED [facility] CALCIUM LEVEL TOTAL 2020-10-03 13:51:00 Edouard Shraddha [facility] PHOSPHORUS LEVEL 2020-10-03 13:51:00 Edouard [facility] ARTERIAL BLOOD GAS 2020-10-03 13:51:00 Imer [facility] CALCIUM IONIZED, VENOUS 2020-10-03 13:51:00 Cory Hickman [facility] GLUCOSE LEVEL 2020-10-03 13:51:00 Cory Hickman [facility] BLOOD UREA NITROGEN 2020-10-03 13:51:00 Cory Hickman [facility] ELECTROLYTE PANEL 2020-10-03 13:51:00 Marylou [facility] SERUM CREATININE 2020-10-03 13:51:00 Marylou [facility] .GLOMERULAR FILTRATION 2020-10-03 13:51:00 Cory Hickman [facility] RATE [facility] MAGNESIUM LEVEL 2020-10-03 13:51:00 Cory Hickman o f [facility] POC GLUCOSE SCREEN 2020-10-03 10:47:00 Randolph Payne [facility] XR CHEST 1 VW PORTABLE 2020-10-03 06:41:19 Yuriy Parker [facility] LACTIC ACID, VENOUS 2020-10-03 05:42:00 Chano Willams [facility] BASIC METABOLIC PANEL, 2020-10-03 05:42:00 [facility]addha [facility]unn [facility] CALCIUM IONIZED [facility] CALCIUM LEVEL TOTAL 2020-10-03 05:42:00 Shraddha Nunn [facility] PHOSPHORUS LEVEL 2020-10-03 05:42:00 Edouard [facility] PROTHROMBIN TIME 2020-10-03 05:42:00 Yuriy Parker [facility] APTT 2020-10-03 05:42:00 Yuriy Parker [facility] ARTERIAL BLOOD GAS 2020-10-03 05:42:00 Chano Willams [facility] MAGNESIUM LEVEL 2020-10-03 05:42:00 Chano Willams Tate o [facility] HEPATIC FUNCTION PANEL 2020-10-03 05:42:00 Yuriy Parker [facility] COMPLETE BLOOD COUNT W/ 2020-10-03 05:42:00 Yuriy Parker [facility] INDICES [facility] CALCIUM IONIZED, VENOUS 2020-10-03 05:42:00 Cory Hickman [facility] GLUCOSE LEVEL 2020-10-03 05:42:00 Cory Hickman Tate o f [facility] BLOOD UREA NITROGEN 2020-10-03 05:42:00 Cory Hickman [facility] ELECTROLYTE PANEL 2020-10-03 05:42:00 Marylou [facility] SERUM CREATININE 2020-10-03 05:42:00 Marylou [facility] .GLOMERULAR FILTRATION 2020-10-03 05:42:00 Cory Hickman [facility] RATE [facility] ALBUMIN LEVEL 2020-10-03 05:42:00 Imer Chano Tate o f [facility] ALKALINE PHOSPHATASE 2020-10-03 05:42:00 Chano Willams [facility] ALANINE AMINOTRANSFERASE 2020-10-03 05:42:00 Chano Willams [facility] ASPARTATE AMINOTRANSFERASE 2020-10-03 05:42:00 Chano Willams [facility] TOTAL PROTEIN 2020-10-03 05:42:00 Chano Willams Tate o [facility] FRACTIONATED BILIRUBIN 2020-10-03 05:42:00 Chano Willams [facility] POC GLUCOSE SCREEN 2020-10-03 04:49:00 Randolph Payne [facility] POC GLUCOSE SCREEN 2020-10-02 22:26:00 Randolph Payne [facility] LACTIC ACID, VENOUS 2020-10-02 21:29:00 Chano Willams [facility] BASIC METABOLIC PANEL, 2020-10-02 21:29:00 Shraddha Nunn [facility] CALCIUM IONIZED [facility] CALCIUM LEVEL TOTAL 2020-10-02 21:29:00 Shraddha Nunn [facility] PHOSPHORUS LEVEL 2020-10-02 21:29:00 Edouard [facility] ARTERIAL BLOOD GAS 2020-10-02 21:29:00 Chano Willams [facility] MAGNESIUM LEVEL 2020-10-02 21:29:00 Imer [facility] CALCIUM IONIZED, VENOUS 2020-10-02 21:29:00 Cory Hickman [facility] GLUCOSE LEVEL 2020-10-02 21:29:00 Cory Hickman [facility] BLOOD UREA NITROGEN 2020-10-02 21:29:00 Cory Hickman [facility] ELECTROLYTE PANEL 2020-10-02 21:29:00 Marylou [facility] [facility] SERUM CREATININE 2020-10-02 21:29:00 Marylou [facility] .GLOMERULAR FILTRATION 2020-10-02 21:29:00 Cory Hickman [facility] POC GLUCOSE SCREEN 2020-10-02 16:42:00 Randolph Payne [facility] ARTERIAL BLOOD GAS 2020-10-02 15:36:00 Imer [facility] MAGNESIUM LEVEL 2020-10-02 15:36:00 [facility] TYPE AND SCREEN 2020-10-02 12:59:00 Yuriy Parker [facility] LACTIC ACID, VENOUS 2020-10-02 12:59:00 Chano Willams [facility] BASIC METABOLIC PANEL, 2020-10-02 12:59:00 Edouard Shraddha [facility] CALCIUM IONIZED [facility] CALCIUM LEVEL TOTAL 2020-10-02 12:59:00 Shraddha Nunn [facility] PHOSPHORUS LEVEL 2020-10-02 12:59:00 Edouard [facility] ABORH 2020-10-02 12:59:00 Karyn Andre [facility] ANTIBODY SCREEN 2020-10-02 12:59:00 Karyn Andre [facility] CALCIUM IONIZED, VENOUS 2020-10-02 12:59:00 Cory Hickman [facility] GLUCOSE LEVEL 2020-10-02 12:59:00 Cory Hickman [facility] BLOOD UREA NITROGEN 2020-10-02 12:59:00 Cory Hickman [facility] ELECTROLYTE PANEL 2020-10-02 12:59:00 Cory Hickman [facility] SERUM CREATININE 2020-10-02 12:59:00 Marylou [facility] .GLOMERULAR FILTRATION 2020-10-02 12:59:00 Cory Hickman [facility] RATE [facility] CLOT EXPIRATION DATE 2020-10-02 12:59:00 [facility] T[facility] INTERPRETATION 2020-10-02 12:59:00 Karyn Andre [facility] ANTIBODY SCREEN NEGATIVE MD [facility] POC GLUCOSE SCREEN 2020-10-02 10:41:00 Randolph Payne [facility] XR CHEST 1 VW PORTABLE 2020-10-02 07:42:56 Yuriy Parker [facility] GENERAL LABORATORY ADD ON 2020-10-02 07:35:00 [facility] GENERAL LABORATORY ADD ON 2020-10-02 07:32:00 L[facility] TEST [facility] LACTIC ACID, VENOUS 2020-10-02 05:56:00 Chano Willams [facility] BASIC METABOLIC PANEL, 2020-10-02 05:56:00 Sh[facility]addha Nunn [facility] CALCIUM IONIZED [facility] CALCIUM LEVEL TOTAL 2020-10-02 05:56:00 Sen, [facility] PHOSPHORUS LEVEL 2020-10-02 05:56:00 Edouard [facility] PROTHROMBIN TIME 2020-10-02 05:56:00 Yuriy Parker [facility] APTT 2020-10-02 05:56:00 Yuriy Parker [facility] ARTERIAL BLOOD GAS 2020-10-02 05:56:00 Chano Willams [facility] MAGNESIUM LEVEL 2020-10-02 05:56:00 Imer Chano Tate o [facility] HEPATIC FUNCTION PANEL 2020-10-02 05:56:00 Yuriy Parker [facility] COMPLETE BLOOD COUNT W/ 2020-10-02 05:56:00 Yuriy Parker [facility] CALCIUM IONIZED, VENOUS 2020-10-02 05:56:00 Cory Hickman [facility] GLUCOSE LEVEL 2020-10-02 05:56:00 Cory Hickman [facility] BLOOD UREA NITROGEN 2020-10-02 05:56:00 Cory Hickman [facility] ELECTROLYTE PANEL 2020-10-02 05:56:00 Marylou [facility] SERUM CREATININE 2020-10-02 05:56:00 Marylou [facility] .GLOMERULAR FILTRATION 2020-10-02 05:56:00 Cory Hickman [facility] ALBUMIN LEVEL 2020-10-02 05:56:00 Chano Willams [facility] ALKALINE PHOSPHATASE 2020-10-02 05:56:00 Chano Willams [facility] ALANINE AMINOTRANSFERASE 2020-10-02 05:56:00 Chano Willams [facility] ASPARTATE AMINOTRANSFERASE 2020-10-02 05:56:00 [facility] TOTAL PROTEIN 2020-10-02 05:56:00 Imer Chano [facility] FRACTIONATED BILIRUBIN 2020-10-02 05:56:00 Chano Willams [facility] POC GLUCOSE SCREEN 2020-10-02 04:42:00 Randolph Payne [facility] POC GLUCOSE SCREEN 2020-10-01 22:24:00 Randolph Payne [facility] LACTIC ACID, VENOUS 2020-10-01 21:48:00 Chano Willams [facility] BASIC METABOLIC PANEL, 2020-10-01 21:48:00 Shraddha Nunn [facility] CALCIUM IONIZED [facility] CALCIUM LEVEL TOTAL 2020-10-01 21:48:00 Edouard [facility] PHOSPHORUS LEVEL 2020-10-01 21:48:00 Edouard [facility] ARTERIAL BLOOD GAS 2020-10-01 21:48:00 Chano Willams [facility] MAGNESIUM LEVEL 2020-10-01 21:48:00 Imer Chano [facility] THYROID STIMULATING 2020-10-01 21:48:00 Jurgen Queen [facility] HORMONE [facility] FREE THYROXINE 2020-10-01 21:48:00 Bret, [facility] CALCIUM IONIZED, VENOUS 2020-10-01 21:48:00 Cory Hickman [facility] GLUCOSE LEVEL 2020-10-01 21:48:00 Cory Hickman [facility] BLOOD UREA NITROGEN 2020-10-01 21:48:00 Cory Hickman [facility] ELECTROLYTE PANEL 2020-10-01 21:48:00 Cory Hickman [facility] SERUM CREATININE 2020-10-01 21:48:00 Marylou [facility] .GLOMERULAR FILTRATION 2020-10-01 21:48:00 Cory Hickman [facility] XR ABDOMEN 1 VW PORTABLE 2020-10-01 18:55:51 Kiara Patel [facility] POC GLUCOSE SCREEN 2020-10-01 16:30:00 Randolph Payne [facility] LACTIC ACID, VENOUS 2020-10-01 13:38:00 Chano Willams [facility] BASIC METABOLIC PANEL, 2020-10-01 13:38:00 Shraddha Nunn [facility] CALCIUM IONIZED [facility] CALCIUM LEVEL TOTAL 2020-10-01 13:38:00 Edouard [facility] PHOSPHORUS LEVEL 2020-10-01 13:38:00 Edouard [facility] ARTERIAL BLOOD GAS 2020-10-01 13:38:00 Imer Chano [facility] MAGNESIUM LEVEL 2020-10-01 13:38:00 Imer [facility] CALCIUM IONIZED, VENOUS 2020-10-01 13:38:00 Cory Hickman [facility] GLUCOSE LEVEL 2020-10-01 13:38:00 Cory Hickman [facility] BLOOD UREA NITROGEN 2020-10-01 13:38:00 Cory Hickman [facility] ELECTROLYTE PANEL 2020-10-01 13:38:00 Cory Hickman [facility] SERUM CREATININE 2020-10-01 13:38:00 Marylou [facility] .GLOMERULAR FILTRATION 2020-10-01 13:38:00 Cory [facility]ickman [facility] POC GLUCOSE SCREEN 2020-10-01 10:26:00 Randolph Payne [facility] ARTERIAL BLOOD GAS 2020-10-01 06:43:00 Cahno Willams [facility] XR CHEST 1 VW PORTABLE 2020-10-01 05:54:00 Yuriy Parker [facility] LACTIC ACID, VENOUS 2020-10-01 05:47:00 Chano Willams [facility] CALCIUM LEVEL TOTAL 2020-10-01 05:47:00 Shraddha Nunn [facility] PHOSPHORUS LEVEL 2020-10-01 05:47:00 Imer Chano [facility] MAGNESIUM LEVEL 2020-10-01 05:47:00 Imer Chano Tate o [facility] VENOUS BLOOD GAS 2020-10-01 05:47:00 Karyn Andre [facility] PROTHROMBIN TIME 2020-10-01 05:47:00 Yuriy Parker [facility] APTT 2020-10-01 05:47:00 Yuriy Parker [facility] BASIC METABOLIC PANEL, 2020-10-01 05:47:00 Chano Willams [facility] CALCIUM IONIZED [facility] COMPLETE BLOOD COUNT W/ 2020-10-01 05:47:00 Chano Willams [facility] INDICES [facility] HEPATIC FUNCTION PANEL 2020-10-01 05:47:00 Yuriy Parker [facility] CALCIUM IONIZED, VENOUS 2020-10-01 05:47:00 Chano Willams [facility] GLUCOSE LEVEL 2020-10-01 05:47:00 Imer Chano Tate o [facility] BLOOD UREA NITROGEN 2020-10-01 05:47:00 hCano Willams [facility] ELECTROLYTE PANEL 2020-10-01 05:47:00 Chano Wlilams [facility] SERUM CREATININE 2020-10-01 05:47:00 Chano Willams [facility] .GLOMERULAR FILTRATION 2020-10-01 05:47:00 Chano Willams [facility] ALBUMIN LEVEL 2020-10-01 05:47:00 Chano Willams [facility] ALKALINE PHOSPHATASE 2020-10-01 05:47:00 Chano Willams [facility] ALANINE AMINOTRANSFERASE 2020-10-01 05:47:00 [facility]ano [facility]ams [facility] ASPARTATE AMINOTRANSFERASE 2020-10-01 05:47:00 Chano Willams [facility] TOTAL PROTEIN 2020-10-01 05:47:00 Chano Willmas Tate [facility] FRACTIONATED BILIRUBIN 2020-10-01 05:47:00 Chano Willams [facility] POC GLUCOSE SCREEN 2020-10-01 04:13:00 Randolph Payne [facility] EKG, 12-LEAD (PORTABLE) 2020-10-01 00:00:00 Yuriy Parker [facility] POC GLUCOSE SCREEN 2020-09-30 22:29:00 Randolph Payne [facility] ARTERIAL BLOOD GAS 2020-09-30 21:54:00 Chano Willams [facility] LACTIC ACID, VENOUS 2020-09-30 21:54:00 Chano Willams [facility] COMPLETE BLOOD COUNT W/ 2020-09-30 21:54:00 Chano Willams [facility] INDICES [facility] BASIC METABOLIC PANEL, 2020-09-30 21:54:00 Shraddha Nunn [facility] CALCIUM IONIZED [facility] CALCIUM LEVEL TOTAL 2020-09-30 21:54:00 Sen, [facility] PHOSPHORUS LEVEL 2020-09-30 21:54:00 [facility]EL 2020-09-30 21:54[facility]00 [facility], VENOUS 2020-09-30 21:54:00 Cory Hickman [facility] GLUCOSE LEVEL 2020-09-30 21:54:00 Cory Hickman [facility] BLOOD UREA NITROGEN 2020-09-30 21:54:00 Cory Hickman [facility] ELECTROLYTE PANEL 2020-09-30 21:54:00 Marylou [facility] SERUM CREATININE 2020-09-30 21:54:00 Marylou [facility] .GLOMERULAR FILTRATION 2020-09-30 21:54:00 Cory Hickman [facility] RATE [facility] TRANSFUSE FRESH FROZEN 2020-09-30 21:30:00 Chano Willams [facility] PLASMA [facility] LEGIONELLA CULTURE 2020-09-30 21:25:00 [facility] W/ SMEAR 2020-09-30 21:25:00 Chano Willams [facility] FUNGUS CULTURE 2020-09-30 21:25:00 Chano Willams [facility] LOWER RESPIRATORY CULTURE 2020-09-30 21:25:00 Chano Willams [facility] W/ GRAM STAIN [facility] PNEUMOCYSTIS JIROVECI 2020-09-30 21:25:00 [facility] BAL [facility] CYTOLOGY NON-SUPERVISING ARCHITECT 2020-09-30 21:17:00 Chano Willams [facility] INTERPRETATION [facility] XR CHEST 1 VW PORTABLE 2020-09-30 20:30:10 Chano Willams [facility] HEPATITIS B SURFACE 2020-09-30 18:36:00 Shraddha Nunn [facility] ANTIGEN, SERUM [facility] LACTIC ACID, VENOUS 2020-09-30 18:36:00 Chano Willams [facility] HEPATITIS B SURFACE AG 2020-09-30 18:36:00 [facility]CONFIRM [facility] HI INSERT NON-TUNNEL CV 2020-09-30 17:15:00 Chano Willams [facility] CATH [facility] HI INSERT 2020-09-30 17:15:00 Chano Willams [facility] [place] CATH,ART,CUTDOWN,SHORTTERM MD [facility] HI CHG US GUIDE, VASCULAR 2020-09-30 17:15:00 [facility] ACCESS [facility] ARTERIAL BLOOD GAS 2020-09-30 17:12:00 [facility] POC GLUCOSE SCREEN 2020-09-30 16:50:00 Randolph Payne [facility] TRANSFUSE FRESH FROZEN 2020-09-30 16:42:00 Chano Willams [facility] PLASMA [facility] BASIC METABOLIC PANEL, 2020-09-30 15:48:00 Chano Willams [facility] CALCIUM IONIZED [facility] MAGNESIUM LEVEL 2020-09-30 15:48:00 Chano Willams o [facility] PHOSPHORUS LEVEL 2020-09-30 15:48:00 Chano Willams [facility] COMPLETE BLOOD COUNT W/ 2020-09-30 15:48:00 Chano Willams [facility] INDICES [facility] GLUCOSE LEVEL 2020-09-30 15:48:00 Chano Willams o f [facility] BLOOD UREA NITROGEN 2020-09-30 15:48:00 Chano Willams [facility] ELECTROLYTE PANEL 2020-09-30 15:48:00 Chano Willams [facility] SERUM CREATININE 2020-09-30 15:48:00 Chano Willams [facility] .GLOMERULAR FILTRATION 2020-09-30 15:48:00 Chano Willams [facility] RATE [facility] CALCIUM IONIZED, VENOUS 2020-09-30 15:48:00 Chano Willams [facility] XR CHEST 1 VW 2020-09-30 14:42:55 Chano Willams Tate [facility] PREPARE FRESH FROZEN 2020-09-30 11:20:00 Chano Willams [facility] PLASMA [facility] FFP PRODUCT READY FOR PICK 2020-09-30 11:20:00 [facility] UP [facility] POC GLUCOSE SCREEN 2020-09-30 11:18:00 [facility] GENER[facility]ORY ADD ON 2020-09-30 11:11:00 [facility] TEST [facility] COMPLETE BLOOD COUNT W/ 2020-09-30 07:54:00 Chano Willams [facility] DIFFERENTIAL [facility] BASIC METABOLIC PANEL, 2020-09-30 07:54:00 Chano Willams [facility] CALCIUM IONIZED [facility] MAGNESIUM LEVEL 2020-09-30 07:54:00 Chano Willams o [facility] PHOSPHORUS LEVEL 2020-09-30 07:54:00 Chano Willams [facility] CARDIAC PANEL 2020-09-30 07:54:00 Karyn Andre brinda [facility] VENOUS BLOOD GAS 2020-09-30 07:54:00 Karyn Andre [facility] PROTHROMBIN TIME 2020-09-30 07:54:00 Yuriy Parker [facility] APTT 2020-09-30 07:54:00 Yuriy Parker [facility] Results CBC 2020-09-30 07:54:00 Imer Chano Tate o [facility] MANUAL DIFFERENTIAL 2020-09-30 07:54:00 Chano Willams [facility] GLUCOSE LEVEL 2020-09-30 07:54:00 Imer, Chano [facility] BLOOD UREA NITROGEN 2020-09-30 07:54:00 Chano Willams [facility] ELECTROLYTE PANEL 2020-09-30 07:54:00 Imer, [facility] SERUM CREATININE 2020-09-30 07:54:00 Imer [facility] .GLOMERULAR FILTRATION 2020-09-30 07:54:00 Chano Willams [facility] CALCIUM IONIZED, VENOUS 2020-09-30 07:54:00 Chano Willams [facility] ALBUMIN LEVEL 2020-09-30 07:54:00 Randolph Payne [facility] ALKALINE PHOSPHATASE 2020-09-30 07:54:00 Randolph Payne [facility] ALANINE AMINOTRANSFERASE 2020-09-30 07:54:00 Randolph Payne [facility] ASPARTATE AMINOTRANSFERASE 2020-09-30 07:54:00 Randolph Payne U [facility] TOTAL PROTEIN 2020-09-30 07:54:00 Randolph Payne o [facility] FRACTIONATED BILIRUBIN 2020-09-30 07:54:00 Randolph Payne [facility] XR CHEST 1 VW PORTABLE 2020-09-30 06:08:59 Yuriy Parker [facility] POC GLUCOSE SCREEN 2020-09-30 04:38:00 [facility] GLUCOSE SCREEN 2020-09-29 22:06:00 Randolph Payne [facility] CARDIAC PANEL 2020-09-29 20:28:00 Karyn Andre [facility] BASIC METABOLIC PANEL, 2020-09-29 20:28:00 Chano Willams [facility] CALCIUM IONIZED [facility] MAGNESIUM LEVEL 2020-09-29 20:28:00 Imer [facility] PHOSPHORUS LEVEL 2020-09-29 20:28:00 Imer [facility] GLUCOSE LEVEL 2020-09-29 20:28:00 Imer Chano [facility] BLOOD UREA NITROGEN 2020-09-29 20:28:00 Chano Willams [facility] ELECTROLYTE PANEL 2020-09-29 20:28:00 Imer [facility] SERUM CREATININE 2020-09-29 [facility]:28[facility] 2020-09-29 20:28:00 Chano Willams [facility] RATE [facility] CALCIUM IONIZED, VENOUS 2020-09-29 20:28:00 Chano Willams [facility] FIBRINOGEN ACTIVITY 2020-09-29 19:30:00 Chano Willams [facility] COMPLETE BLOOD COUNT W/ 2020-09-29 19:30:00 Chano Willams [facility] DIFFERENTIAL [facility] CALCIUM IONIZED, VENOUS 2020-09-29 19:30:00 Imer Chano [facility] Results CBC 2020-09-29 19:30:00 Imer [facility] DIFFERENTIAL CANCEL 2020-09-29 19:30:00 Chano Willams [facility] VENOUS BLOOD GAS 2020-09-29 17:13:00 Karyn Andre [facility] COMPLETE BLOOD COUNT W/ 2020-09-29 17:13:00 Chano Willams [facility] DIFFERENTIAL [facility] BASIC METABOLIC PANEL, 2020-09-29 17:13:00 Chano Willams [facility] CALCIUM IONIZED [facility] MAGNESIUM LEVEL 2020-09-29 17:13:00 Imer, [facility] PHOSPHORUS LEVEL 2020-09-29 17:13:00 Imer, [facility] CALCIUM IONIZED, VENOUS 2020-09-29 17:13:00 Chano Willams [facility] Results CBC 2020-09-29 17:13:00 Imer Chano [facility] GLUCOSE LEVEL 2020-09-29 17:13:00 Imer Chano [facility] BLOOD UREA NITROGEN 2020-09-29 17:13:00 Chano Willams [facility] ELECTROLYTE PANEL 2020-09-29 17:13:00 Imer [facility] SERUM CREATININE 2020-09-29 17:13:00 Imer [facility] .GLOMERULAR FILTRATION 2020-09-29 17:13:00 Chano Willams [facility] RATE [facility] DIFFERENTIAL CANCEL 2020-09-29 17:13:00 Chano Willams [facility] URINALYSIS WITH 2020-09-29 16:51:00 Bud Jarrett [facility] MICROSCOPIC IF INDICATED [facility] URINALYSIS MICROSCOPIC 2020-09-29 16:51:00 Bud Jarrett [facility] Junior [facility] ECHOCARDIOGRAM 2D LIMITED 2020-09-29 16:24:44 Karyn Andre [facility] - FOLLOW UP [facility] POC GLUCOSE SCREEN 2020-09-29 16:08:00 Randolph Payne [facility] BASIC METABOLIC PANEL, 2020-09-29 13:18:00 Karyn Andre [facility] [place] CALCIUM IONIZED [facility] CARDIAC PANEL 2020-09-29 13:18:00 Karyn Andre [facility] MAGNESIUM LEVEL 2020-09-29 13:18:00 Karyn Andre [facility] PHOSPHORUS LEVEL 2020-09-29 13:18:00 Karyn Andre [facility] HEPATIC FUNCTION PANEL 2020-09-29 13:18:00 Karyn Andre U [facility] GLUCOSE LEVEL 2020-09-29 13:18:00 Karyn Andre [facility] BLOOD UREA NITROGEN 2020-09-29 13:18:00 Karyn Andre Univ ersity [facility] ELECTROLYTE PANEL 2020-09-29 13:18:00 Karyn Andre [facility] SERUM CREATININE 2020-09-29 13:18:00 Karyn Andre Univers ity [facility] .GLOMERULAR FILTRATION 2020-09-29 13:18:00 Karyn Andre [facility] [place] RATE [facility] ALBUMIN LEVEL 2020-09-29 13:18:00 Karyn Andre [facility] ALKALINE PHOSPHATASE 2020-09-29 13:18:00 K[facility] ALANINE AMINOTRANSFERASE 2020-09-29 13:18:00 Karyn Andre [facility] ASPARTATE AMINOTRANSFERASE 2020-09-29 13:18:00 Karyn Andre [facility] TOTAL PROTEIN 2020-09-29 13:18:00 Karyn Andre [facility] FRACTIONATED BILIRUBIN 2020-09-29 13:18:00 Karyn Andre [facility] BLOODCULTURE 2020-09-29 13:10:00 Karyn Andre [facility] TYPE AND SCREEN 2020-09-29 13:10:00 Karyn Andre [facility] ABORH 2020-09-29 13:10:00 Karyn Andre [facility] ANTIBODY SCREEN 2020-09-29 13:10:00 Karyn Andre [facility] CLOT EXPIRATION DATE 2020-09-29 13:10:00 [facility] TMP INTERPRETATION 2020-09-29 13:10:00 Karyn Andre [facility] ANTIBODY SCREEN NEGATIVE [facility] [place] RESPIRATORY VIRAL PANEL + 2020-09-29 12:21:00 Marty Jarrett [facility] COVID-19, NASOPHARYNGEAL [facility] BLOODCULTURE 2020-09-29 11:30:00 Karyn Andre [facility] ARTERIAL BLOOD GAS 2020-09-29 11:26:00 Karyn Andre [facility] XR CHEST 1 VW 2020-09-29 11:21:00 Karyn Andre [facility] POC GLUCOSE SCREEN 2020-09-29 11:15:00 Bud Jarrett [facility] VRE CULTURE 2020-09-29 11:07:00 Karyn Andre [facility] EKG, 12-LEAD (PORTABLE) 2020-09-29 00:00:00 Karyn Andre [facility] OSI CHEST 2020-09-28 16:51:00 [facility] COVID-19 (ID NOW RAPID 2020-01-29 16:36:00 Nicole Cheek [facility] TESTING) [facility] DME/SUPPLY JUSTIFICATION 2019-09-19 05:01:00 Doctor Unassigned, No [facility] Name Medical Branch DME/SUPPLY JUSTIFICATION 2019-07-17 05:01:00 Doctor Unassigned, No [facility] Name Medical Branch Repair of knee collateral 1973-03-27 00:00:00 Me keven lowery Plan of Care Planned Activity Planned Date Details Comments Source Future Scheduled 2021-11-25 INFLUENZA VACCINE (#1) C [facility] 00:00:00 [code = INFLUENZA Medical Ce nter VACCINE (#1)] Future Scheduled 2021-10-31 COVID-19 Vaccination [facility] [place] [facility] 07:09:26 (#1) [code = COVID-19 [facility] (#1[facility] Center Future Scheduled 2021-09-30 COVID-19 Vaccination [facility] Test 07:30:59 (#1) [code = COVID-19 [facility] (#1)] Center Future Scheduled 2021-09-30 COVID-19 Vaccination [facility] [place] Test 07:30:59 (#1) [code = COVID-19 [facility] (#1)] Center Future Scheduled 2021-09-30 COVID-19 Vaccination [facility] [place] Test 07:30:59 (#1) [code = COVID-19 [facility] (#1)] Center Future Scheduled 2021-06-[address] [facility] 00:00:00 WELLNESS (YEAR 2 or Medical Center FIRST YEAR if no IPPE) [code = MEDICARE ANNUAL WELLNESS (YEAR 2 or FIRST YEAR if no IPPE)] Future Scheduled 2021-03-[address] [facility] Test 00:00:00 (12+) [code = Medical Center DEPRESSION SCREENING (12+)] Future Scheduled 2021-03-27 F[place] RIS[place] SCREENING [facility] 00:00:00 [code = FALLS RISK Medical C enter SCREENING] Future Scheduled 2017-06-30 PNEUMOCOCCAL 65+ YRS [facility] 00:00:00 (2 - PPSV23 or PCV20) Medica l Center [code = PNEUMOCOCCAL 65+ YRS (2 - PPSV23 or PCV20)] Future Scheduled 1998 SHINGLES VACCINES ([address] [facility] 00:00:00 of 2) [code = SHINGLES Medic al Center VACCINES (1 of 2)] Future Scheduled 1967-10-09 DTAP/TDAP/TD VACCINES [facility] 00:00:00 (1 - Tdap) [code = Medical C enter DTAP/TDAP/TD VACCINES (1 - Tdap)] Future Scheduled 1966 HEPATITIS C SCRE[facility]ING [facility] 00:00:00 [code = HEPATITIS C Medical Center SCREENING] Future Scheduled 1949-04-10 COVID-19 VACCINE (#1) [facility] 00:00:00 [code = COVID-[address] VACCINE (#1)] Future Scheduled [address] [facility] 00:00:00 (combo) [code = CT Medical C enter Colonography (combo)] Future Scheduled [address] [facility]:00 malignant neoplasm of Medica l Center colon (procedure) [code = 758600946] Future Scheduled [address] [facility] 00:00:00 malignant neoplasm of Medica l Center colon (procedure) [code = 935879057] Future Scheduled [address] [facility] 00[facility]00:00 malignant neoplasm of Medica l Center colon (procedure) [code = 502138241] Future Scheduled [address] [facility] 00:00:00 malignant neoplasm of Medica l Center colon (procedure) [code = 987271317] Future Scheduled 1948 Sigmoidoscopy [code = [facility] Sigmoidoscopy] Medical Cente r Encounters Start End Encounter Admission Attending Care Care Encounter Source Date/Time Date/Time Type Type Clinicians Facility Department ID 2021-08-10 Outpatient Veliz, STLMLC STLMLC [id number] Common 09:07:23 Ray [facility] 2021-04-22 Outpatient 3 [id number] ENCPL JAZMÍN [id number] ENCPL 12:42:06 0813 2021-04-22 Outpatient 3 [id number] ENCPL REF [id number] ENCPL 12:40:14 0809 2021-04-22 Outpatient 3 [id number] ENCPL PUL [id number] ENCPL 12:39:34 0807 2021-04-22 Outpatient 3 [id number] ENCPL REF [id number] ENCPL 12:38:17 0804 2021-04-22 Outpatient 3 [id number] ENCPL REF [id number] ENCPL 12:38:06 0803 2021-04-21 Outpatient Veliz, STLMLC [facility] [id number] Common 13:20:21 Ray [id number] [facility] 2021-04-21 Outpatient Veliz, STLM [facility] [id number] Common 13:18:24 Ray [id number] [facility] 2021-04-21 Outpatient Veliz, STLMLC [facility] [id number] Common 12:28:07 Ray [id number] [facility] 2021-04-21 Outpatient STLM [facility] [id number] Common 11:59:29 [id number] [facility] 2021-01-02 Inpatient RASLAN, [facility] Surgery [id number] SLE 11:38:46 NINA 2021-01-02 Inpatient ER NASSER, [facility] Cardiac ICU [id number] [facility] [address] 11:38:15 [facility] 2020-10-19 Outpatient SYSTEM, JUDITH WONG [id number] 07:44:13 PROVIDER Herman archuleta 2020-09-25 Outpatient PISIMISIS, JUDITH Thoracic [id number] 08:45:30 BETH archuleta 2020-09-03 Outpatient SYSTEM, JUDITH WONG [id number] 11:18:01 PROVIDER Herman archuleta 2021-04-16 2021-04-16 Orders Neymar, 1.2.840.1 [id number] Univers 00:00:00 00:00:00 Only Kimberlee 64625.1.1 ity of Sue 3.412.2.7 [place] .3.104136 .8 [facility] 2021-04-16 2021-04-16 Orders Neymar, 1.2.840.1 [id number] Univers 00:00:00 00:00:00 Only Kimberlee 90243.1.1 ity of Sue 3.412.2.7 [place] .3.699904 .8 [facility] 2021-03-16 2021-03-16 TelemVesta Mejia 1.2.840.1 [id number] Univers 11:30:00 11:45:00 ne Katelin Ceja 62282.1.1 ity of 3.412.2.7 [place] .3.962215 MD Correa8 [facility] 2021-03-16 2021-03-16 TelemVesta Barcenas 1.2.840.1 [id number] Univers 11:30:00 11:45:00 ne Katelin Ceja 03367.1.1 ity of 3.412.2.7 [place] .3.572840 MD Correa8 [facility] 2020-12-25 2020-12-25 Orders Neymar, 1.2.840.1 [id number] Univers 00:00:00 00:00:00 Only Kimberlee 62976.1.1 ity of Sue 3.412.2.7 [place] .3.987532 MD Correa8 [facility] 2020-12-25 2020-12-25 Orders Neymar, 1.2.840.1 [id number] Univers 00:00:00 00:00:00 Only Kimberlee 40721.1.1 ity of Sue 3.412.2.7 [place] .3.996551 MD Correa8 [facility] 2020-12-23 2020-12-23 Telemattila Smith, 1.2.840.1 [id number] Univers 09:30:00 09:45:47 ne Dru 87008.1.1 ity of 3.412.2.7 [place] .3.759113 MD Correa8 [facility] 2020-12-23 2020-12-23 Telemedicmichoacano Smith, 1.2.840.1 [id number] Univers 09:30:00 09:45:47 ne Dru 43864.1.1 ity of 3.412.2.7 [place] .3.406344 MD Correa8 [facility] 2020-12-22 2020-12-22 Telephone Mulugeta, 1.2.840.1 [id number] 1 [id number] Univers 00:00:00 00:00:00 Bailey G 97411.1.1 ity of 3.412.2.7 [place] .3.397838 MD Correa8 [facility] 2020-12-22 2020-12-22 Telephone Mulugeta, 1.2.840.1 [id number] 1 [id number] Univers 00:00:00 00:00:00 Bailey G 10898.1.1 ity of 3.412.2.7 [place] .3.400555 MD Correa8 [facility] 2020-12-16 2020-12-16 Telemedici Sarah, 1.2.840.1 [id number] Univers 09:15:00 09:30:00 ne iralionel 39093.1.1 ity of 3.412.2.7 [place] .3.501708 MD Correa8 [facility] 2020-12-16 2020-12-16 Telemedici RACHEL Smith, 1.2.840.1 [id number] [id number] Univers 09:15:00 09:30:00 ne Sairalionel 21069.1.1 ity of 3.412.2.7 [place] .3.650536 MD Correa8 [facility] 2020-12-15 2020-12-15 Telephone Mulugeta, 1.2.840.1 [id number] 1 [id number] Univers 00:00:00 00:00:00 Bailey G 06067.1.1 ity of 3.412.2.7 [place] .3.764236 .8 [facility] 2020-12-15 2020-12-15 Telephone Mulugeta, 1.2.840.1 [id number] 1 [id number] Univers 00:00:00 00:00:00 Bailey G 22198.1.1 ity of 3.412.2.7 [place] .3.600284 MD Correa8 [facility] 2020-12-14 2020-12-14 Documentat Shank, 1.2.840.1 [id number] [id number] Univers 00:00:00 00:00:00 ion Princess H 04218.1.1 ity of 3.412.2.7 [place] .3.820676 MD Correa8 [facility] 2020-12-14 2020-12-14 Documentat Shank, 1.2.840.1 [id number] Univers 00:00:00 00:00:00 ion Princess H 73231.1.1 ity of 3.412.2.7 [place] .3.983850 MD Correa8 [facility] 2020-12-09 2020-12-09 Telephone Corona, 1.2.840.1 [id number] 10 [id number] Univers 00:00:00 00:00:00 Antonette C 60016.1.1 ity of 3.412.2.7 [place] .3.991689 MD Correa8 [facility] 2020-12-09 2020-12-09 Telephone Corona, 1.2.840.1 [id number] 10 [id number] Univers 00:00:00 00:00:00 Antonette C 27151.1.1 ity of 3.412.2.7 [place] .3.891704 MD Correa8 [facility] 2020-12-07 2020-12-07 [facility] 1.2.840.1 [id number] Univers 23:59:00 23:59:00 Encounter Latisha Canchola 79048.1.1 ity of 3.412.2.7 [place] .3.593806 MD Correa8 [facility] 2020-12-07 2020-12-07 [facility] 1.2.840.1 [id number] Univers 23:59:00 23:59:00 Encounter Latisha Canchola 53814.1.1 ity of 3.412.2.7 [place] .3.388774 MD Correa8 [facility] 2020-12-07 2020-12-07 TelemedicDru Prince 1.2.840.1 [id number] Univers 10:30:00 11:00:00 ne Swapnil Rose 48913.1.1 ity of 3.412.2.7 [place] .3.285360 MD Correa8 [facility] 2020-12-07 2020-12-07 [facility] Dru Luther 1.2.840.1 [id number] Univers 10:30:00 11:00:00 ne Swapnil Rose 35811.1.1 ity of 3.412.2.7 [place] .3.318948 MD Correa8 [facility] 2020-12-07 2020-12-07 Stephanie Knight, 1.2.840.1 [id number] Univers 00:00:00 00:00:00 Only Vesta 85622.1.1 ity of 3.412.2.7 [place] .3.838403 MD Neves [facility] 2020-12-07 2020-12-07 Telephone Corona, 1.2.840.1 [id number] 10 [id number] Univers 00:00:00 00:00:00 Antonette Carney 04709.1.1 ity of 3.412.2.7 [place] .3.842674 MD Correa8 [facility] 2020-12-07 2020-12-07 Telephone Corona, 1.2.840.1 [id number] 10 [id number] Univers 00:00:00 00:00:00 Antonette Carney 06469.1.1 ity of 3.412.2.7 [place] .3.264565 MD Correa8 [facility] 2020-12-07 2020-12-07 Telephone Lit, 1.2.840.1 [id number] Univers 00:00:00 00:00:00 Fartun Jones 73433.1.1 ity of 3.412.2.7 [place] .3.651192 MD Neves [facility] 2020-12-07 2020-12-07 Orders Eugene, 1.2.840.1 [id number] Univers 00:00:00 00:00:00 Only Vesta 38458.1.1 ity of 3.412.2.7 [place] .3.634072 MD Neves [facility] 2020-12-07 2020-12-07 Telephone Corona, 1.2.840.1 [id number] 10 [id number] Univers 00:00:00 00:00:00 Antonette Carney 84651.1.1 ity of 3.412.2.7 [place] .3.392560 MD Correa8 [facility] 2020-12-07 2020-12-07 Telephone Corona, 1.2.840.1 [id number] 10 [id number] Univers 00:00:00 00:00:00 Antonette Carney 93807.1.1 ity of 3.412.2.7 [place] .3.016601 MD Correa8 [facility] 2020-12-07 2020-12-07 Telephone Lit, 1.2.840.1 [id number] Univers 00:00:00 00:00:00 Fartun Jones 16015.1.1 ity of 3.412.2.7 [place] .3.752889 MD Correa8 [facility] 2020-12-03 2020-12-03 [facility] 1.2.840.1 [id number] 1 [id number] Univers 10:20:00 23:59:00 Mayra vilchis 21096.1.1 it y of Yomaira F 3.412.2.7 [place] .3.261669 MD Correa8 [facility] 2020-12-02 2020-12-02 [facility] RACHEL Smith, 1.2.840.1 [id number] Univers 09:00:00 10:36:59 ifeoma Gonsales 95812.1.1 ity of 3.412.2.7 [place] .3.955462 MD Correa8 [facility] 2020-12-01 2020-12-01 Telephone Mulugeta, 1.2.840.1 [id number] 1 [id number] Univers 00:00:00 00:00:00 Bailey G 99018.1.1 ity of 3.412.2.7 [place] .3.412895 MD Correa8 [facility] 2020-12-01 2020-12-01 Case Phong, 1.2.840.1 [id number] Univers 00:00:00 00:00:00 Management Alyssa Glover 23609.1.1 ity of 3.412.2.7 [place] .3.586818 .8 [facility] 2020-11-25 2020-11-25 Telemedici RACHEL Smith, 1.2.840.1 [id number] Univers 09:15:00 09:44:59 ne Dru 46019.1.1 ity of 3.412.2.7 [place] .3.389929 MD Correa8 [facility] 2020-11-24 2020-11-24 Telephone Mulugeta, 1.2.840.1 [id number] Univers 00:00:00 00:00:00 Bailey Villagomez 20700.1.1 ity of 3.412.2.7 [place] .3.666811 MD Correa8 [facility] 2020-11-16 2020-11-16 Telemedici RACHEL Domínguezry, 1.2.840.1 [id number] [id number] Univers 13:45:00 13:45:00 ne Kimberlee 31360.1.1 ity of Sue 3.412.2.7 [place] .3.640307 .8 [facility] 2020-11-16 2020-11-16 Documentat Herber, 1.2.840.1 [id number] Univers 00:00:00 00:00:00 ion Armando 66382.1.1 ity of Shahwar 3.412.2.7 [place] .3.753816 MD Correa8 [facility] 2020-09-29 2020-11-14 [facility] Bud Mae 1.2.840.1 [id number] Univers 05:35:00 14:35:00 Randolph Ridley 92020.1.1 ity of [place] P 3.412.2.7 [place] Darryl Banerjee .3.249803 Bebe Kim .8 A Randolph Gupta [facility] 2020-11-14 2020-11-14 Orders Wlof, 1.2.840.1 [id number] Univers 00:00:00 00:00:00 Only Elizabeth 78108.1.1 ity of 3.412.2.7 [place] .3.903720 MD Correa8 [facility] 2020-11-13 2020-11-13 Orders Maverick, 1.2.840.1 [id number] 10 [id number] Univers 00:00:00 00:00:00 Only Charito Watts 86744.1.1 it y of 3.412.2.7 [place] .3.071570 MD Correa8 [facility] 2020-11-13 2020-11-13 Orders Prince, 1.2.840.1 [id number] [id number] Univers 00:00:00 00:00:00 Only Denny Vidales 20377.1.1 ity of 3.412.2.7 [place] .3.577265 MD Correa8 [facility] 2020-11-13 2020-11-13 Orders Eugene, 1.2.840.1 [id number] Univers 00:00:00 00:00:00 Only Vesta 75133.1.1 ity of 3.412.2.7 [place] .3.923243 MD Correa8 [facility] 2020-11-13 2020-11-13 Orders Galileo, 1.2.840.1 [id number] Univers 00:00:00 00:00:00 Only Yanet Garcia 27364.1.1 it y of 3.412.2.7 [place] .3.645890 MD Correa8 [facility] 2020-11-12 2020-11-12 Orders Beck Martines 1.2.840.1 [id number] [id number] Univers 00:00:00 00:00:00 Only Apolonia 36283.1.1 ity of 3.412.2.7 [place] .3.352537 .8 [facility] 2020-11-10 2020-11-10 Inpatient RACHEL BLAKE JUDITH MDA [id number] MD 07:27:45 07:36:25 [facility] Dereck so 2020-11-10 2020-11-10 Inpatient RACHEL BLAKE MDA [facility] [id number] 05:05:38 05:30:57 [facility] 2020-11-09 2020-11-09 Orders Tijerina, 1.2.840.1 [id number] Univers 00:00:00 00:00:00 Only Mishel 75697.1.1 ity of 3.412.2.7 [place] .3.750970 MD Correa8 [facility] 2020-11-05 2020-11-05 Telephone Yue, 1.2.840.1 [id number] Univers 00:00:00 00:00:00 Evi 17883.1.1 it y of 3.412.2.7 [place] .3.075159 MD Correa8 [facility] 2020-11-03 2020-11-03 Inpatient RACHEL SMITH JUDITH MDA [id number] 17:09:05 17:11:49 DRU archuleta 2020-11-03 2020-11-03 Orders Hayden, 1.2.840.1 [id number] Univers 00:00:00 00:00:00 Only Kristina 65899.1.1 ity of 3.412.2.7 [place] .3.718993 MD Correa8 [facility] 2020-11-02 2020-11-02 Inpatient RACHEL COYNE JUDITH MDA [id number] 09:12:55 11:22:21 CJ archuleta 2020-10-30 2020-10-30 Orders Francisca, 1.2.840.1 [id number] Univers 00:00:00 00:00:00 Only Geena 52238.1.1 ity of 3.412.2.7 [place] .3.468192 MD Correa8 [facility] 2020-10-29 2020-10-29 Inpatient RACHEL BLAKE JUDITH WONG [id number] 19:40:38 20:05:18 KRISTINA Dereck so geremias 2020-10-29 2020-10-29 Inpatient RACHEL SMITH JUDITH WONG [id number] 01:03:56 01:04:07 SUSAN Herman archuleta 2020-10-29 2020-10-29 Orders Malini, 1.2.840.1 [id number] Univers 00:00:00 00:00:00 Only Denny 34471.1.1 ity of 3.412.2.7 [place] .3.280353 MD Correa8 [facility] 2020-10-27 2020-10-27 Ancillary RACHEL Blake, 1.2.840.1 [id number] Univers 20:00:00 20:05:00 Procedure Kristina 79060.1.1 i ty of 3.412.2.7 [place] .3.218400 MD Neves [facility] 2020-10-27 2020-10-27 Inpatient RACHEL SMITH JUDITH WONG [id number] 13:50:26 13:50:31 DRU archuleta 2020-10-26 2020-10-26 Inpatient RACHEL SMITH JUDITH WONG [id number] MD 14:48:05 14:48:09 DRU archuleta 2020-10-26 2020-10-26 Stephanie Lovell, 1.2.840.1 [id number] Univers 00:00:00 00:00:00 Only Mari Gallagher 32482.1.1 ity of 3.412.2.7 [place] .3.142654 MD Correa8 [facility] 2020-10-23 2020-10-23 Stephanie Coyne 1.2.840.1 [id number] Univers 00:00:00 00:00:00 Only Cj 84379.1.1 ity of 3.412.2.7 [place] .3.577461 MD Neves [facility] 2020-10-22 2020-10-22 Inpatient RANDOLPH BEAULIEU MDA MDA [id number] 20:34:15 21:15:34 Herman o 2020-10-15 2020-10-15 Inpatient RACHEL SMITH, MDA MDA [id number] 14:20:34 14:20:37 [facility] o n 2020-10-13 2020-10-13 Inpatient RACHEL SMITH, MDA MDA [id number] 13:41:07 13:41:09 [facility] o n 2020-10-10 2020-10-10 Inpatient RACHEL PATEL, MDA MDA [id number] 14:30:49 14:34:36 KIARA Dereck so 2020-10-05 2020-10-05 Inpatient RACHEL KRUGER, MDA MDA [id number] 21:05:33 21:30:04 MIGDALIA [facility] so 2020-10-02 2020-10-02 Stephanie Ramírez 1.2.840.1 [id number] [facility] 00:00:00 00:00:00 Only Kylie Yu 33084.1.1 ity of 3.412.2.7 [place] .3.976795 .8 [facility] 2020-09-30 2020-09-30 Inpatient RACHEL QUEEN, MDA MDA [id number] 20:34:19 21:12:40 JURGEN Warders o n 2020-09-30 2020-09-30 Inpatient RACHEL WILLAMS, MDA MDA [id number] 16:35:16 16:35:21 CHANO Herman o n 2020-09-30 2020-09-30 Inpatient RANDOLPH BEAULIEU MDA MDA [id number] 14:38:47 15:31:40 Herman o n 2020-09-30 2020-09-30 Inpatient RACHEL WILLAMS, MDA MDA [id number] 14:21:19 15:31:37 CHANO Herman o n 2020-09-29 2020-09-29 [facility] 1.2.840.1 1.2.330.699 [id number] Univers 00:00:00 00:00:00 49299.1.1 350.1.13.41 ity of 3.412.2.7 [place].698 [place] .[place] 084.8 .8 Camryn archuleta [facility] 2020-09-17 2020-09-23 Inpatient RACHEL BLAKE, MDA Lymphoma/My [id number] 12:22:00 17:54:00 [facility] larissa Warder so n 2020-09-23 2020-09-23 Inpatient RACHEL BLAKE, MDA MDA [id number] 17:09:44 17:43:35 [facility] Dereck so n 2020-09-23 2020-09-23 Inpatient RACHEL BLAKE, MDA MDA [id number] 17:24:14 17:24:18 [facility] Dereck so n 2020-09-23 2020-09-23 Inpatient RACHEL PRIEST, MDA MDA [id number] 14:55:27 15:19:17 ESTELLA archuleta 2020-09-18 2020-09-18 Inpatient RACHEL SMITH, MDA MDA [id number] 20:07:46 20:07:49 DRU Sutton o geremias 2020-09-17 2020-09-17 Inpatient RACHEL CAMPOS, MDA MDA [id number] 22:31:02 23:36:29 ELISA archuleta 2020-09-17 2020-09-17 Inpatient RACHEL BLAKE, MDA MDA [id number] 19:51:09 19:51:13 KRISTINA Warder so geremias 2020-09-16 2020-09-16 Outpatient RACHEL SMITH, MDA MDA [id number] 12:54:09 16:41:32 DRU Sutton o geremias 2020-09-16 2020-09-16 Outpatient EL DOMINIC SON, MDA MDA [id number] 10:58:41 10:58:41 MILAGRO archuleta 2020-09-16 2020-09-16 Outpatient RACHEL ELINOR, MDA MDA [id number] 09:08:16 09:08:16 JESENIA archuleta 2020-09-15 2020-09-15 Outpatient EL ZEINAB, MDA MDA [id number] 18:51:00 23:59:00 TIRSO archuleta 2020-09-15 2020-09-15 Outpatient EL ZEINAB, MDA MDA [id number] 18:38:00 18:50:00 TIRSO archuleta 2020-09-11 2020-09-11 Emergency ER [facility] Emergency [id number] [facility] 09:39:00 09:39:00 2020-09-07 2020-09-07 Emergency ER [facility] Emergency [id number] [facility] 13:22:00 13:22:00 2020-09-07 2020-09-07 Outpatient EL DOMINIC SON, MDA MDA [id number] 12:27:14 12:27:14 MILAGRO archuleta 2020-09-07 2020-09-07 Outpatient EL MDA MDA [id number] 12:21:08 12:21:08 Herman archuleta 2020-09-05 2020-09-05 Outpatient EL KAMALA, MDA MDA [id number] 13:30:27 13:43:02 ANGELO archuleta 2020-08-18 2020-08-18 Outpatient STLMLC STLMLC [id number] Common 00:00:00 00:00:00 [facility] 2020-08-17 2020-08-17 Outpatient STLMLC STLMLC [id number] Common 00:00:00 00:00:00 [facility] 2020-08-13 2020-08-13 Outpatient STLMLC STLMLC [id number] Common 00:00:00 00:00:00 [facility] 2020-07-13 2020-07-13 Outpatient STLMLC STLMLC [id number] Common 00:00:00 00:00:00 [facility] 2020-06-19 2020-06-19 Outpatient STLMLC STLMLC [id number] Common 00:00:00 00:00:00 [facility] 2020-05-08 2020-05-08 Outpatient STLMLC STLMLC [id number] Common 00:00:00 00:00:00 [facility] 2020-05-01 2020-05-01 Outpatient STLMLC STLMLC [id number] Common 00:00:00 00:00:00 [facility] 2020-04-29 2020-04-29 Outpatient STLMLC STLMLC [id number] Common 00:00:00 00:00:00 [facility] 2020-04-15 2020-04-15 Outpatient STLMLC STLMLC [id number] Common 00:00:00 00:00:00 [facility] 2020-03-02 2020-03-02 Outpatient STLMLC STLMLC [id number] Common 00:00:00 00:00:00 [facility] 2020-02-13 2020-02-13 Outpatient STLMLC STLMLC [id number] Common 00:00:00 00:00:00 [facility] 2020-01-30 2020-01-30 Outpatient R [facility] [id number] Univers 14:00:00 14:00:00 [facility] 2020-01-30 2020-01-30 Outpatient R GARRY [facility] [id number] Univers 14:00:00 14:00:00 AFIA [facility] 2020-01-29 2020-01-29 Outpatient R [facility] [id number] Univers 12:15:00 12:15:00 [facility] 2020-01-29 2020-01-29 Outpatient R NICOLE CHEEK [facility] 10 [id number] Univers 12:15:00 12:15:00 NICOLE CHEEK ty [facility] 2020-01-29 2020-01-29 Laboratory Only, Adc Test [facility] 1.2.840. 114 [id number] Univers 10:22:41 10:37:41 Only Nicole Cheek 350.1.13.10 ity [facility] 4.[address] [place] [id number] 2020-01-29 2020-01-29 Laboratory Only, Adc [facility] 1.2.840.114 7 [id number] 10:22:41 10:37:41 Only Test [place] 350.1.13.[address] [place] [address] [place] [address] [id number] [facility] 2020-01-28 2020-01-28 Outpatient [facility] [id number] Univers 14:30:00 14:30:00 ity [facility] 2020-01-27 2020-01-27 Outpatient R [facility] [id number] Univers 09:45:00 09:45:00 ity [facility] 2020-01-27 2020-01-27 Outpatient R NICOLE CHEEK [facility] 10 [id number] Univers 09:45:00 09:45:00 NICOLE CHEEK i ty of [facility] 2020-01-21 2020-01-21 Outpatient STLMLC STLMLC [id number] Common 00:00:00 00:00:00 [facility] 2020-01-21 2020-01-21 Outpatient STLMLC STLMLC [id number] Common 00:00:00 00:00:00 [facility] 2020-01-10 2020-01-10 Telephone [facility] 1.2.350.909 [id number] Univers 00:00:00 00:00:00 Nicole Iglesias 350.1.13.10 i ty of [place] 4.2.7.2.686 Tracie s Professio [phone] Va dical [address] 2020-01-10 2020-01-10 [facility] [id number] 00:00:00 00:00:00 Nicole Iglesias [id number] [place] [id number] Professio [phone] [address] 2019-10-11 2019-10-11 Outpatient R NICOLE CHEEK [facility] 13 [id number] Univers 10:40:00 10:40:00 NICOLE CHEEK [id number] i ty of [facility] 2019-10-11 2019-10-11 Outpatient R NICOLE CHEEK [facility] 10 [id number] Univers 10:40:00 10:40:00 NICOLE CHEEK i ty of [facility] 2019-09-19 2019-09-19 Orders Doctor ZAVALA [id number] Univers 00:00:00 00:00:00 Only Unassigned, SAMANTHA [id number] ity of [place] [facility] [id number] [place] as [phone] [address] 2019-08-29 2019-08-29 Outpatient R ADIA NICOLE [facility] 13 [id number] Univers 11:40:00 11:40:00 NICOLE CHEEK [id number] i ty of [facility] 2019-07-17 2019-07-17 Orders Doctor ZAVALA [id number] Univers 00:00:00 00:00:00 Only Unassigned, SAMANTHA [id number] [place]y [place] [facility] [id number] [place] as [phone] [address] 2019-07-11 2019-07-11 Outpatient R NICOLE CHEEK [facility] 13 [id number] Univers 10:40:00 10:40:00 NICOLE CHEEK [id number] i ty of [facility] 2019-07-11 2019-07-11 Outpatient R NICOLE CHEEK [facility] 10 [id number] Univers 10:40:00 10:40:00 NICOLE CHEEK i ty of [facility] 2019-07-11 2019-07-11 Telemedici [facility] 1.2.840.114 [id number] Univers 08:05:50 08:25:50 ne Visit Nicole Iglesias [id number] it[id number] [phone] [address] 2019-04-25 2019-04-25 Office [facility] 1.2.840.114 [id number] Univers 11:25:55 14:54:38 Visit Nicole Iglesias [id number] i [place] [id number] [phone] [address] 2019-04-25 2019-04-25 Telephone [facility] [id number] Univers 00:00:00 00:00:00 Shiholden [place] [id number] i [place] [id number] [phone] [place] d[place] nal [address] [place] [address] 2018-12-06 2018-12-06 Office [facility] [id number] Univers 09:26:39 10:12:15 Visit Nicole Iglesias [id number] i [place] [id number] [phone] [place] dic[address] 2018-08-31 2018-08-31 [facility]phone [facility] [id number] [facility] 00:00:00 00:00:00 Nicole Iglesias [id number] i [place] [id number] [phone] [address] 2018-01-16 2018-01-18 Outside nullFlavo [facility] [id number] Memoria 18:43:00 04:59:59 Medical r Cardiology 00 l Records [facility] 2018-01-16 2018-01-18 Outside nullFlavo [facility] [id number] Memoria 18:43:00 04:59:59 Medical r Cardiology 00 l Records [facility] 2018-01-16 2018-01-17 Outpatient [facility] [id number] 13:43:00 23:59:59 00 2016-06-15 2016-07-01 Inpatient [facility] [id number] Memoria 18:52:00 00:05:00 r [place] 79 l [place] 2016-06-15 2016-07-01 Inpatient [facility] [id number] Memoria 18:52:00 00:05:00 r Ty 79 l [place] 2016-06-15 2016-06-30 Outpatient Eugenia Benedict [facility] [id number] 13:52:00 19:05:00 Ana Evans Results Test Description Test Time Test Comments Results Result Comments Source AFB Culture w/Smear 2020-12-11 01:41:50 Test Item Value Reference Range Interpretation Comme nts Final Report (test code = 8488) Acid fast bacilli isolatedIdentific ation 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 The sequencing procedure was developed and itsperformance characteristics determined by [facility] microbiology laboratory. It has not been cleared orapproved by the U.S. 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 The sequencing procedure was developed and itsperformance characteristics determined by [facility] microbiology laboratory. It has not been cleared orapproved by the U.S. 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 The sequencing procedure was developed and itsperformance characteristics determined by [facility] microbiology laboratory. It has not been cleared orapproved by the U.S. Food and Drug Administration Path Review - AFB The results have been A (test code = 8477) reviewed and electronically signed by Pathologist:JYOTI MCCALL MD #[id number] Acid Fast Stain No Acid Fast Bacilli seen A Truant (test code = in direct smear 50382-2) DARCI (test code = And RUL DARCI) Lab Interpretation Abnormal (test code = 53019-9) [facility] [id number] 19:30:21 Test Item Value Reference Range Interpretation Comments Final Report (test No growth code = 8488) Path Review - Immunity and antibiotic Bottle/Isolator use may render culture (test code = 8499) negative. Ongoing infection requires repeat culture. The results have been reviewed and electronically signed by Pathologist:Mary Last MD, PhD #[id number] DARCI (test code = From PICC line please DARCI) [facility] [id number] 19:30:21 Test Item Value Reference Range Interpretation Comments Final Report (test No growth code = 8488) Path Review - Immunity and antibiotic Bottle/Isolator use may render culture (test code = 8499) negative. Ongoing infection requires repeat culture. The results have been reviewed and electronically signed by Pathologist:Mary Last MD, PhD #[id number] DARCI (test code = From PICC line please DARCI) [facility] [id number] 19:30:21 Test Item Value Reference Range Interpretation Comments Final Report (test No growth code = 8488) Path Review - Immunity and antibiotic Bottle/Isolator use may render culture (test code = 8499) negative. Ongoing infection requires repeat culture. The results have been reviewed and electronically signed by Pathologist:Mary Last MD, PhD #[id number] DARCI (test code = From PICC line please DARCI) [facility]2021-08-21 14:25:51 Test Item Value Reference Range Interpretation Comments Total Cells (test code 115 = 7642) Neutrophil % (test 82.0 % 42.0-66.0 H The Neutr ophil count code = 6491) includes Bands. Lymphocyte % (test 2.0 % 24.0-44.0 L code = 6194) Monocyte % (test code 11.0 % 2.0-7.0 H = 6422) Metamyelocyte % (test 5.0 % See_Comment H The Va tamyelocyte code = 6399) count includes Myelocytes. [Automated mess age] The system [employer] generated this result transmitted ref erence range: <=0.0. T he reference range was not used to int erpret this result as normal/abnormal . NRBC (test code = 1.0 See_Comment H [Automate d message] 6472) The system [employer] generated this result transmitted ref erence range: [...] (test code = Present Not Present A 2684) Tear Drop (test code = Present Not Present A 9002) Slide Comments (test See Note A Platele t morphology code = 5447) normal. Lab Interpretation Abnormal (test code = 60219-0) [facility]21[facility] 14:25:51 Test Item Value Reference Range Interpretation Comments Total Cells (test code 115 = 7642) Neutrophil % (test 82.0 % 42.0-66.0 H The Neutr ophil count code = 6491) includes Bands. Lymphocyte % (test 2.0 % 24.0-44.0 L code = 6194) Monocyte % (test code 11.0 % 2.0-7.0 H = 6422) Metamyelocyte % (test 5.0 % See_Comment H The Me tamyelocyte code = 6399) count includes Myelocytes. [Automated mess age] The system [employer] generated this result transmitted ref erence range: <=0.0. T he reference range was not used to int erpret this result as normal/abnormal . NRBC (test code = 1.0 See_Comment H [Automate d message] 0782) The system [employer] generated this result transmitted ref erence range: [...] (test code = Present Not Present A 6584) Tear Drop (test code = Present Not Present A 7602) Slide Comments (test See Note A Platele t morphology code = 5447) normal. Lab Interpretation Abnormal (test code = 58848-2) [facility] 14:25:51 Test Item Value Reference Range Interpretation Comments Total Cells (test code 115 = 7642) Neutrophil % (test 82.0 % 42.0-66.0 H The Neutr ophil count code = 6491) includes Bands. Lymphocyte % (test 2.0 % 24.0-44.0 L code = 6194) Monocyte % (test code 11.0 % 2.0-7.0 H = 6422) Metamyelocyte % (test 5.0 % See_Comment H The Va tamyelocyte code = 6399) count includes Myelocytes. [Automated mess age] The system [employer] generated this result transmitted ref erence range: <=0.0. T he reference range was not used to int erpret this result as normal/abnormal . NRBC (test code = 1.0 See_Comment H [Automate d message] 5513) The system [employer] generated this result transmitted ref erence range: [...] (test code = Present Not Present A 6584) Tear Drop (test code = Present Not Present A 7602) Slide Comments (test See Note A Platele t morphology code = 5447) normal. Lab Interpretation Abnormal (test code = 11263-1) [facility] [place].[id number] 14:25:49 Test Item Value Reference Range Interpretation Comments WBC (test code = 22.7 K/uL 4.0-11.0 H 6690-2) RBC (test code = 789-8) 2.92 See_Comment L [Au tomated message] The system [employer] generated this result transmitted ref erence range: 4.50 - 6 .00 M/uL. The refer ence range was not u sed to interpret this result as normal/abnor mal. Hgb (test code = 718-7) 8.7 See_Comment L [Au tomated message] The system [employer] generated this result transmitted ref erence range: [...] See_Comment [Automate d message] 786-4) The system [employer] generated this result transmitted ref erence range: 31.0 - 3 6.0 gm/dL. The refe rence range was not u sed to interpret this result as normal/abnor mal. RDW-SD (test code = 55.0 fL 35.1-46.3 H 52945-3) RDW-CV (test code = 16.5 % 12.0-15.5 [...] cell differential. [Automated mess age] The system [employer] generated this result transmitted ref erence range: <=0.0. T he reference range was not used to int erpret this result as normal/abnormal . Lab Interpretation Abnormal (test code = 67268-4) [facility] [place].[id number] 14:25:49 Test Item Value Reference Range Interpretation Comments WBC (test code = 22.7 K/uL 4.0-11.0 H 6690-2) RBC (test code = 789-8) 2.92 See_Comment L [Au tomated message] The system [employer] generated this result transmitted ref erence range: 4.50 - 6 .00 M/uL. The refer ence range was not u sed to interpret this result as normal/abnor mal. Hgb (test code = 718-7) 8.7 See_Comment L [Au tomated message] The system [employer] generated this result transmitted ref erence range: [...] See_Comment [Automate d message] 786-4) The system [employer] generated this result transmitted ref erence range: 31.0 - 3 6.0 gm/dL. The refe rence range was not u sed to interpret this result as normal/abnor mal. RDW-SD (test code = 55.0 fL 35.1-46.3 H 46959-6) RDW-CV (test code = 16.5 % 12.0-15.5 [...] cell differential. [Automated mess age] The system [employer] generated this result transmitted ref erence range: <=0.0. T he reference range was not used to int erpret this result as normal/abnormal . Lab Interpretation Abnormal (test code = 79895-2) [facility] [place].[id number] 14:25:49 Test Item Value Reference Range Interpretation Comments WBC (test code = 22.7 K/uL 4.0-11.0 H 6690-2) RBC (test code = 789-8) 2.92 See_Comment L [Au tomated message] The system [employer] generated this result transmitted ref erence range: 4.50 - 6 .00 M/uL. The refer ence range was not u sed to interpret this result as normal/abnor mal. Hgb (test code = 718-7) 8.7 See_Comment L [Au tomated message] The system [employer] generated this result transmitted ref erence range: [...] See_Comment [Automate d message] 786-4) The system [employer] generated this result transmitted ref erence range: 31.0 - 3 6.0 gm/dL. The refe rence range was not u sed to interpret this result as normal/abnor mal. RDW-SD (test code = 55.0 fL 35.1-46.3 H 74208-6) RDW-CV (test code = 16.5 % 12.0-15.5 [...] cell differential. [Automated mess age] The system [facility] generated this result transmitted ref erence range: <=0.0. T he reference range was not used to int erpret this result as normal/abnormal . Lab Interpretation Abnormal (test code = 29039-7) [facility] [id number] 09:16:35 Test Item Value Reference Range Interpretation Comments Sodium Lvl (test code = 140 See_Comment [Au tomated message] 8883) The system [facility] [employer] generated this result transmitted ref erence range: 136 - 14 5 mEq/L. The refe rence range was not u sed to interpret this result as normal/abnor mal. Potassium Lvl (test code 4.2 See_Comment [A utomated message] = 0997) The system [facility] [employer] generated this result transmitted ref erence range: 3.5 - 5. 1 mEq/L. The refe rence range was not u sed to interpret this result as normal/abnor mal. Chloride (test code = 100 See_Comment [Auto mated message] 3641) The system [facility] [employer] generated this result transmitted ref erence range: 98 - 107 mEq/L. The refe rence range was not u sed to interpret this result as normal/abnor mal. CO2 (test code = 5227) 30 See_Comment H [Aut omated message] The system [facility] [employer] generated this result transmitted ref erence range: 22 - 29 mEq/L. The reference r lou[place] was not used to interpret this result as normal/abnor mal. Anion Gap (test code = 10 See_Comment [Aut omated message] 4639) The system [facility] [employer] generated this result transmitted ref erence range: 4 - 14 m Eq/L. The reference r lou[place] was not used to interpret this result as normal/abnor mal. Lab Interpretation (test Abnormal code = 05034-5) [facility] [id number] 09:16:35 Test Item Value Reference Range Interpretation Comments Sodium Lvl (test code = 140 See_Comment [Au tomated message] 4855) The system [employer] generated this result transmitted ref erence range: 136 - 14 5 mEq/L. The refe rence range was not u sed to interpret this result as normal/abnor mal. Potassium Lvl (test code 4.2 See_Comment [A utomated message] = 6854) The system [employer] generated this result transmitted ref erence range: 3.5 - 5. 1 mEq/L. The refe rence range was not u sed to interpret this result as normal/abnor mal. Chloride (test code = 100 See_Comment [Auto mated message] 4497) The system [employer] generated this result transmitted ref erence range: 98 - 107 mEq/L. The refe rence range was not u sed to interpret this result as normal/abnor mal. CO2 (test code = 5227) 30 See_Comment H [Aut omated message] The system [employer] generated this result transmitted ref erence range: 22 - 29 mEq/L. The reference r [place] was not used to interpret this result as normal/abnor mal. Anion Gap (test code = 10 See_Comment [Aut omated message] 9325) The system [employer] generated this result transmitted ref erence range: 4 - 14 m Eq/L. The reference r [place] was not used to interpret this result as normal/abnor mal. Lab Interpretation (test Abnormal code = 06156-6) [facility] [id number] 09:16:35 Test Item Value Reference Range Interpretation Comments Sodium Lvl (test code = 140 See_Comment [Au tomated message] 7355) The system [employer] generated this result transmitted ref erence range: 136 - 14 5 mEq/L. The refe rence range was not u sed to interpret this result as normal/abnor mal. Potassium Lvl (test code 4.2 See_Comment [A utomated message] = 6854) The system [employer] generated this result transmitted ref erence range: 3.5 - 5. 1 mEq/L. The refe rence range was not u sed to interpret this result as normal/abnor mal. Chloride (test code = 100 See_Comment [Auto mated message] 4189) The system [employer] generated this result transmitted ref erence range: 98 - 107 mEq/L. The refe rence range was not u sed to interpret this result as normal/abnor mal. CO2 (test code = 5227) 30 See_Comment H [Aut omated message] The system [employer] generated this result transmitted ref erence range: 22 - 29 mEq/L. The reference r [place] was not used to interpret this result as normal/abnor mal. Anion Gap (test code = 10 See_Comment [Aut omated message] 9325) The system [employer] generated this result transmitted ref erence range: 4 - 14 m Eq/L. The reference r [place] was not used to interpret this result as normal/abnor mal. Lab Interpretation (test Abnormal code = 24938-4) [facility] [id number] 09:16:34 Test Item Value Reference Range Interpretation Comments Bili Total (test 0.4 mg/dL See_Comment Indocyanine Green (ICG) code = 5096) may cause false ly elevated biliru bin results. Total and direct bilirubin must not be measured from s amples containing indo cyanine green. False el evation of total bilirubin can be seen in patient s with IgG concentrations above 28 g/L. [Automated message] The system [employer] generated this result transmitted ref erence range: [...] (test 0.2 mg/dL 0.0-0.9 code = 5095) [facility] [id number] 09:16:34 Test Item Value Reference Range Interpretation Comments Bili Total (test 0.4 mg/dL See_Comment Indocyanine Green (ICG) code = 5096) may cause false ly elevated biliru bin results. Total and direct bilirubin must not be measured from s amples containing indo cyanine green. False el evation of total bilirubin can be seen in patient s with IgG concentrations above 28 g/L. [Automated message] The system [employer] generated this result transmitted ref erence range: [...] (test 0.2 mg/dL 0.0-0.9 code = 5095) [facility] [id number] 09:16:34 Test Item Value Reference Range Interpretation Comments Bili Total (test 0.4 mg/dL See_Comment Indocyanine Green (ICG) code = 5096) may cause false ly elevated biliru bin results. Total and direct bilirubin must not be measured from s amples containing indo cyanine green. False el evation of total bilirubin can be seen in patient s with IgG concentrations above 28 g/L. [Automated message] The system [employer] generated this result transmitted ref erence range: [...] (test 0.2 mg/dL 0.0-0.9 code = 5095) [facility] [id number] 09:16:33 Test Item Value Reference Range Interpretation Comments Phosphorus (test code = 6817) 3.5 mg/dL 2.5-4.5 [facility] [id number] 09:16:33 Test Item Value Reference Range Interpretation Comments Phosphorus (test code = 6817) 3.5 mg/dL 2.5-4.5 [facility] [id number] 09:16:33 Test Item Value Reference Range Interpretation Comments Phosphorus (test code = 6817) 3.5 mg/dL 2.5-4.5 [facility]21[facility] 09:16:31 Test Item Value Reference Range Interpretation Comments LDH (test code = 6111) 336 U/L 135-225 H Resul ts greater than 1651 U/L may no t be reliable due to matrix effect w ith extended diluti on as it exceeds the dental surgery doctor s recommended l imit. Caution should be exercised when interpreting matute ch values and done in conjunction wit clinical contex t. Lab Interpretation (test Abnormal code = 96577-4) [facility] 09:16:31 Test Item Value Reference Range Interpretation Comments LDH (test code = 6111) 336 U/L 135-225 H Resul ts greater than 1651 U/L may no t be reliable due to matrix effect w ith extended diluti on as it exceeds the dental surgery doctor s recommended l imit. Caution should be exercised when interpreting matute ch values and done in conjunction wit clinical contex t. Lab Interpretation (test Abnormal code = 08065-5) [facility] 09:16:31 Test Item Value Reference Range Interpretation Comments LDH (test code = 6111) 336 U/L 135-225 H Resul ts greater than 1651 U/L may no t be reliable due to matrix effect w ith extended diluti on as it exceeds the dental surgery doctor s recommended l imit. Caution should be exercised when interpreting matute ch values and done in conjunction wit clinical contex t. Lab Interpretation (test Abnormal code = 81961-4) [facility] Rate 2020-11-14 09:16:30 Test Item Value Reference Range Interpretation [...] estima jigar GFR. Stage Desc ription GFR mL/min/1.73 m21 Normal or high GFR >=902 Mildly de creased GFR 60-893a Mi ldly to moderately decr eased GFR 45-593b Mod erately to severely dec reased GFR 30-444 Nora rely decreased GFR 1 5-295 Kidney failure <15 [Automated mess age] The system [employer] generated this result transmitted ref erence range: >=60 mL/min/1.73 sq. m. The reference range [...] estima jigar GFR. Stage Desc ription GFR mL/min/1.73 m21 Normal or high GFR >=902 Mildly de creased GFR 60-893a Mil dly to moderately decr eased GFR 45-593b Mod erately to severely dec reased GFR 30-444 Nora rely decreased GFR 1 5-295 Kidney failure <15 [Automated mess age] The system [employer] generated this result transmitted ref erence range: >=60 mL/min/1.73 sq. m. The reference range was not used to int erpret this result as normal/abnormal . Lab Interpretation Abnormal (test code = 62916-3) [facility] 2020-11-14 09:16:30 Test Item Value Reference Range Interpretation [...] According to th e National Kid[employer]'s Ki dney Disease Outcome Quality Initiat rere (KDOQI) classif ication and 2011 Kidney Disease Improvi ng Global Outcomes (KDIGO) Clinica l Practice Guidel ine, the stage of CK D should be categ orized based on estima jigar GFR. Stage Desc ription GFR mL/min/1.73 m21 Normal or high GFR >=902 Mildly de creased GFR 60-893a Mil dly to moderately decr eased GFR 45-593b Mod erately to severely dec reased GFR 30-444 Nora rely decreased GFR 1 5-295 Kidney failure <15 [Automated mess age] The system [employer] generated this result transmitted ref erence range: >=60 mL/min/1.73 sq. m. The reference range [...] According to th e National [employer]'s Ki dney Disease Outcome Quality Initiat rere (KDOQI) classif ication and 2011 Kidney Disease Improvi ng Global Outcomes (KDIGO) Clinica l Practice Guidel ine, the stage of CK D should be categ orized based on estima jigar GFR. Stage Desc ription GFR mL/min/1.7 3 m21 Normal or high GFR >=902 Mildly de creased GFR 60-893a Mil dly to moderately decr eased GFR 45-593b Mod erately to severely dec reased GFR 30-444 Nora rely decreased GFR 1 5-295 Kidney failure <15 [Automated mess age] The system [employer] generated this result transmitted ref erence range: >=60 mL/min/1.73 sq. m. The reference range was not used to int erpret this result as normal/abnormal . Lab Interpretation Abnormal (test code = 25824-3) [facility] 2020-11-14 09:16:30 Test Item Value Reference Range Interpretation [...] According to th e National Kid[employer]'s Ki dney Disease Outcome Quality Initiat rere (KDOQI) classif ication and 2012 Kidney Disease Improvi ng Global Outcomes (KDIGO) Clinica l Practice Guidel ine, the stage of CK D should be categ orized based on estima jigar GFR. Stage Desc ription GFR mL/min/1.73 m21 Normal or high GFR >=902 Mildly de creased GFR 60-893a Mil dly to moderately decr eased GFR 45-593b Mod erately to severely dec reased GFR 30-444 Nora rely decreased GFR 1 5-295 Kidney failure <15 [Automated mess age] The system [employer] generated this result transmitted ref erence range: >=60 mL/min/1.73 sq. m. The reference range [...] According to th e National Kidney [employer]'s Ki dney Disease Outcome Quality Initiat rere (KDOQI) classif ication and 2011 Kidney Disease Improvi ng Global Outcomes (KDIGO) Clinica l Practice Guidel ine, the stage of CK D should be categ orized based on estima jigar GFR. Stage Desc ription GFR mL/min/1.73 m21 Normal or high GFR >=902 Mildly de creased GFR 60-893a Mil dly to moderately decr eased GFR 45-593b Mod erately to severely dec reased GFR 30-444 Nora rely decreased GFR 1 5-295 Kidney failure <15 [Automated mess age] The system [employer] generated this result transmitted ref erence range: >=60 mL/min/1.73 sq. m. The reference range was not used to int erpret this result as normal/abnormal . Lab Interpretation Abnormal (test code = 63940-5) [facility] [id number] 09:16:29 Test Item Value Reference Range Interpretation Comments Calcium Lvl (test code = 5258) 8.3 mg/dL 8.4-10.2 L Lab Interpretation (test code = Abnormal 32825-8) [facility] [id number] 09:16:29 Test Item Value Reference Range Interpretation Comments Calcium Lvl (test code = 5258) 8.3 mg/dL 8.4-10.2 L Lab Interpretation (test code = Abnormal 23001-4) [facility] [id number] 09:16:29 Test Item Value Reference Range Interpretation Comments Calcium Lvl (test code = 5258) 8.3 mg/dL 8.4-10.2 L Lab Interpretation (test code = Abnormal 82487-7) [facility] [id number] 09:16:28 Test Item Value Reference Range Interpretation Comments Uric Acid (test code = 7955) 8.5 mg/dL 3.4-7.0 H Lab Interpretation (test code = Abnormal 68695-9) [facility] [id number] 09:16:28 Test Item Value Reference Range Interpretation Comments Uric Acid (test code = 7955) 8.5 mg/dL 3.4-7.0 H Lab Interpretation (test code = Abnormal 96364-1) [facility] [id number] 09:16:28 Test Item Value Reference Range Interpretation Comments Uric Acid (test code = 7955) 8.5 mg/dL 3.4-7.0 H Lab Interpretation (test code = Abnormal 98707-7) [facility] [id number] 09:16:27 Test Item Value Reference Range Interpretation Comments Albumin Lvl (test code = 3.1 See_Comment L [A utomated message] 4763) The system [employer] generated this result transmitted ref erence range: 3.5 - 5. 2 gm/dL. The refe rence range was not u sed to interpret this result as normal/abnor mal. Lab Interpretation (test Abnormal code = 07845-8) [facility] [id number] 09:16:27 Test Item Value Reference Range Interpretation Comments Albumin Lvl (test code = 3.1 See_Comment L [A utomated message] 4763) The system [facility] [facility] generated this result transmitted ref erence range: 3.5 - 5. 2 gm/dL. The refe rence range was not u sed to interpret this result as normal/abnor mal. Lab Interpretation (test Abnormal code = 79287-7) [facility]and[facility] [id number] 09:16:27 Test Item Value Reference Range Interpretation Comments Albumin Lvl (test code = 3.1 See_Comment L [A utomated message] 4763) The system [facility] [facility] generated this result transmitted ref erence range: 3.5 - 5. 2 gm/dL. The refe rence range was not u sed to interpret this result as normal/abnor mal. Lab Interpretation (test Abnormal code = 47194-1) [facility]andTotal [id number] 09:16:26 Test Item Value Reference Range Interpretation Comments Total Protein (test code = 7649) 6.2 g/dL 6.4-8.3 L Lab Interpretation (test code = Abnormal 89013-3) [facility] [id number] 09:16:26 Test Item Value Reference Range Interpretation Comments Total Protein (test code = 7649) 6.2 g/dL 6.4-8.3 L Lab Interpretation (test code = Abnormal 84242-6) [facility] [id number] 09:16:26 Test Item Value Reference Range Interpretation Comments Total Protein (test code = 7649) 6.2 g/dL 6.4-8.3 L Lab Interpretation (test code = Abnormal 31796-6) [facility]andAspartate Aminotransferase 2020-11-14 09:16:25 Test Item Value Reference Range Interpretation Comments AST (test code = 19 U/L See_Comment [Automated message] The 4731) system which ge nerated this result transmit jigar reference range : <=40. The reference range was not used to interpr et this result as sonido l/abnormal. [facility]andAspartate Aminotransferase 2020-11-14 09:16:25 Test Item Value Reference Range Interpretation Comments AST (test code = 19 U/L See_Comment [Automated message] The 4731) system which ge nerated this result transmit jigar reference range : <=40. The reference range was not used to interpr et this result as sonido l/abnormal. [facility]andAspartate Aminotransferase 2020-11-14 09:16:25 Test Item Value Reference Range Interpretation Comments AST (test code = 19 U/L See_Comment [Automated message] The 4731) system which ge nerated this result transmit jigar reference range : <=40. The reference range was not used to interpr et this result as sonido l/abnormal. [facility]and[facility] [id number] 09:16:24 Test Item Value Reference Range Interpretation Comments Magnesium (test code = 6359) 1.8 mg/dL 1.6-2.6 [facility] [id number] 09:16:24 Test Item Value Reference Range Interpretation Comments Magnesium (test code = 6359) 1.8 mg/dL 1.6-2.6 [facility] [id number] 09:16:24 Test Item Value Reference Range Interpretation Comments Magnesium (test code = 6359) 1.8 mg/dL 1.6-2.6 [facility]andAl[facility] Gwqbqazvpkd6289-87-11 09:16:22 Test Item Value Reference Range Interpretation Comments Alk Phos (test code = 4768) 249 U/L 40-129 H Lab Interpretation (test code = Abnormal 19181-4) [facility] Maylptyeklr3213-88-16 09:16:22 Test Item Value Reference Range Interpretation Comments Alk Phos (test code = 4768) 249 U/L 40-129 H Lab Interpretation (test code = Abnormal 17810-7) [facility] Qmwjnlgocoh7289-37-72 09:16:22 Test Item Value Reference Range Interpretation Comments Alk Phos (test code = 4768) 249 U/L 40-129 H Lab Interpretation (test code = Abnormal 93696-7) [facility] [id number] 09:16:21 Test Item Value Reference Range Interpretation Comments Glucose Level (test 93 mg/dL 70-99 Effectiv e 10/21/15, the code = 5699) glucose referen ce intervals have been updated based o n [place] [employer] tia luiss (Standards of M edical Care in Diabete s 2016. Diabetes Care 2 016; 39: S13-S22).Fastin g blood glucose:Normal: 70-99 mg/dLImpaired f asting glucose (increa sed risk for diabetes or pre-diabetes): 100-125 mg/dLDiabetes m ellitus: >/=126 mg/dL Ra ndom blood glucose:N ormal: 70-199 mg/dLNot e: Random glucose >100 mg /dL is associated with increased risk for diabetes [facility]Gl[facility] [id number] 09:16:21 Test Item Value Reference Range Interpretation Comments Glucose Level (test 93 mg/dL 70-99 Effectiv e 10/21/15, the code = 5699) glucose referen ce intervals have been updated based o n [place] [employer] tia delines (Standards of edical Care in Diabete s 2016. Diabetes Care 2 016; 39: S13-S22).Fastin g blood glucose:Normal: 70-99 mg/dLImpaired f asting glucose (increa sed risk for diabetes or pre-diabetes): 100-125 mg/dLDiabetes m ellitus: >/=126 mg/dL Ra ndom blood glucose:N ormal: 70-199 mg/dLNot e: Random glucose >100 mg /dL is associated with increased risk for diabetes [facility]Gl[facility] Vonvr7613-31-37 09:16:21 Test Item Value Reference Range Interpretation Comments Glucose Level (test 93 mg/dL 70-99 Effectiv e 10/21/15, the code = 5699) glucose referen ce intervals have been updated based o n [place] [employer] tia delines (Standards of edical Care in Diabete s 2016. Diabetes Care 2 016; 39: S13-S22).Fastin g blood glucose:Normal: 70-99 mg/dLImpaired f asting glucose (increa sed risk for diabetes or pre-diabetes): 100-125 mg/dLDiabetes m ellitus: >/=126 mg/dL Ra ndom blood glucose:N ormal: 70-199 mg/dLNot e: Random glucose >100 mg /dL is associated with increased risk for diabetes [facility]ALT2021-08-21 09:16:20 Test Item Value Reference Range Interpretation Comments ALT (test code = 16 U/L See_Comment [Automated message] The [employer]) system which ge nerated this result transmit jigar reference range : <=41. The reference range was not used to interpr et this result as sonido l/abnormal. [facility]ALT2021-08-21 09:16:20 Test Item Value Reference Range Interpretation Comments ALT (test code = 16 U/L See_Comment [Automated message] The [employer]) system which ge nerated this result transmit jigar reference range : <=41. The reference range was not used to interpr et this result as sonido l/abnormal. [facility]ALT2021-08-21 09:16:20 Test Item Value Reference Range Interpretation Comments ALT (test code = 16 U/L See_Comment [Automated message] The 4583) system which ge nerated this result transmit jigar reference range : <=41. The reference range was not used to interpr et this result as sonido l/abnormal. [facility].Serum Nxpdscgidh5224-28-75 09:16:19 Test Item Value Reference Range Interpretation Comments Creatinine (test code = 5399) 2.53 mg/dL 0.67-1.17 H Lab Interpretation (test code = Abnormal 10289-3) [facility].Serum Xcynebeydd4761-53-57 09:16:19 Test Item Value Reference Range Interpretation Comments Creatinine (test code = 5399) 2.53 mg/dL 0.67-1.17 H Lab Interpretation (test code = Abnormal 41920-1) [facility].Serum Duecygypjd7824-23-92 09:16:19 Test Item Value Reference Range Interpretation Comments Creatinine (test code = 5399) 2.53 mg/dL 0.67-1.17 H Lab Interpretation (test code = Abnormal 05577-2) [facility]2021-[facility]-21 09:16:18 Test Item Value Reference Range Interpretation Comments BUN (test code = 5055) 29 mg/dL 6-23 H Lab Interpretation (test code = Abnormal 09190-1) [facility]2021-[facility]-21 09:16:18 Test Item Value Reference Range Interpretation Comments BUN (test code = 5055) 29 mg/dL 6-23 H Lab Interpretation (test code = Abnormal 46101-5) [facility]2021-[facility]-21 09:16:18 Test Item Value Reference Range Interpretation Comments BUN (test code = 5055) 29 mg/dL 6-23 H Lab Interpretation (test code = Abnormal 54537-3) [facility]andV[facility] Qmdueem8825-01-29 14:30:01 Test Item Value Reference Range Interpretation Comments Final Report (test No Vancomycin resistant code = 8488) Enterococci isolated Path Review - VRE VRE absent or below limits (test code = 8485) of detection....The results have been reviewed and electronically signed by Pathologist:Jonathon Bethea MD, PhD #[id number] [facility] Tzoczqu5422-33-89 14:30:01 Test Item Value Reference Range Interpretation Comments Final Report (test No Vancomycin resistant code = 8488) Enterococci isolated Path Review - VRE VRE absent or below limits (test code = 8485) of detection....The results have been reviewed and electronically signed by Pathologist:Jonathon Bethea MD, PhD #[id number] [facility] Exqaypj8129-96-16 14:30:01 Test Item Value Reference Range Interpretation Comments Final Report (test No Vancomycin resistant code = 8488) Enterococci isolated Path Review - VRE VRE absent or below limits (test code = 8485) of detection....The results have been reviewed and electronically signed by Pathologist:Jonathon Bethea MD, PhD #[id number] [facility]andLower Respiratory Culture w/Gram Kawwh1482-02-20 14:14:20 Test Item Value Reference Range Interpretation Comments Final Report (test code Moderate Yeast A = 8488) isolated Path Review (test code = Yeast is a component A 8492) of upper respiratory/oral jesse and may NOT be clinically significant. Recommend clinical correlation BEFORE requesting additional workup....The results have been reviewed and electronically signed by Pathologist:Jonathon Bethea MD, PhD #[id number] Gram Stain Report (test Few WBC's seenNo A code = 09575-0) organisms seen. Lab Interpretation (test Abnormal code = 88820-6) [facility] Respiratory Culture w/Gram [id number] 14:14:20 Test Item Value Reference Range Interpretation Comments Final Report (test code Moderate Yeast A = 8488) isolated Path Review (test code = Yeast is a component A 8492) of upper respiratory/oral jesse and may NOT be clinically significant. Recommend clinical correlation BEFORE requesting additional workup....The results have been reviewed and electronically signed by Pathologist:Jonathon Bethea MD, PhD #[id number] Gram Stain Report (test Few WBC's seenNo A code = 36909-7) organisms seen. Lab Interpretation (test Abnormal code = 06132-4) [facility] Respiratory Culture w/Gram [id number] 14:14:20 Test Item Value Reference Range Interpretation Comments Final Report (test code Moderate Yeast A = 8488) isolated Path Review (test code = Yeast is a component A 8492) of upper respiratory/oral jesse and may NOT be clinically significant. Recommend clinical correlation BEFORE requesting additional workup....The results have been reviewed and electronically signed by Pathologist:Jonathon eBthea MD, PhD #[id number] Gram Stain Report (test Few WBC's seenNo A code = 12840-9) organisms seen. Lab Interpretation (test Abnormal code = 15856-4) [facility] Interpretation Antibody Screen [id number] 12:43:39 Test Item Value Reference Range Interpretation Comments TMP Auto Neg At the present ABSC Interp time, patient (test code = plasma shows no ____FERNANDO 7535) evidence of RBC DION,Dic tated by: alloantibodiNivia Bentley ed Date/Time: 10.26 7:43 AM CDT Tra nscribed Date/Time: 10.26 7:43 AM CDTElectronical ly Signed By: MANUELA FARRELL, on 11.13.2020 7 :43 AM C [facility] Interpretation Antibody Screen [id number] 12:43:39 Test Item Value Reference Range Interpretation Comments TMP Auto Neg At the present ABSC Interp time, patient (test code = plasma shows no ____FERNANDO 7535) evidence of RBC DIONDic tated by: alloantibodiNivia Bentley ed Date/Time: 10.26 7:43 AM CDT Tra nscribed Date/Time: 10.26 7:43 AM CDTElectronical ly Signed By: MANUELA FARRELL, on 11.13.2020 7 :43 AM C [facility] Interpretation Antibody Screen [id number] 12:43:39 Test Item Value Reference Range Interpretation Comments TMP Auto Neg At the present ABSC Interp time, patient (test code = plasma shows no ____MANUELA 7535) evidence of RBC DIONDic tated by: alloantibodilong. MANUELA ASHLEY,Dictat ed Date/Time: 10.26 7:43 AM CDT Tra nscribed Date/Time: 10.26 7:43 AM CDTElectronical ly Signed By: MANUELA FARRELL on 11.13.2020 7 :43 AM C [facility]andAntib[facility] [id number] 12:34:14 Test Item Value Reference Range Interpretation Comments ABSC. (test code = 890-4) Negative ABSC [facility]andAntib[facility] [id number] 12:34:14 Test Item Value Reference Range Interpretation Comments ABSC. (test code = 890-4) Negative ABSC [facility]andAntibody Hcarwh5785-35-15 12:34:14 Test Item Value Reference Range Interpretation Comments ABSC. (test code = 890-4) Negative ABSC [facility]ABORh2021-08-20 12:34:13 Test Item Value Reference Range Interpretation Comments ABORh. (test code = 882-1) A POS [facility]ABORh2021-08-20 12:34:13 Test Item Value Reference Range Interpretation Comments ABORh. (test code = 882-1) A POS [facility]ABORh2021-08-20 12:34:13 Test Item Value Reference Range Interpretation Comments ABORh. (test code = 882-1) A POS [facility]andClot Expiration [id number] 12:34:08 Test Item Value Reference Range Interpretation Comments T & S Expiration (test code = 11/16/2020 5318) [facility]andCl[facility] Expiration [id number] 12:34:08 Test Item Value Reference Range Interpretation Comments T & S Expiration (test code = 11/16/2020 5318) [facility]andCl[facility] Expiration [id number] 12:34:08 Test Item Value Reference Range Interpretation Comments T & S Expiration (test code = 11/16/2020 5318) [facility]and[facility] Thromboplastin Time 2020-11-13 09:28:40 Test Item Value Reference Range Interpretation Comments aPTT (test code = 6773) 43.1 See_Comment H [Au tomated message] The system [employer] generated this result transmitted ref erence range: 24.7 - 3 6.8 second(s). The reference range was not used to int erpret this result as normal/abnormal . Lab Interpretation (test Abnormal code = 80621-0) [facility] Thromboplast[facility] Time 2020-11-13 09:28:40 Test Item Value Reference Range Interpretation Comments aPTT (test code = 6773) 43.1 See_Comment H [Au tomated message] The system [facility] [facility] generated this result transmitted ref erence range: 24.7 - 3 6.8 second(s). The reference range was not used to int erpret this result as normal/abnormal . Lab Interpretation (test Abnormal code = 15032-5) [facility] Thromboplast[facility] Time 2020-11-13 09:28:40 Test Item Value Reference Range Interpretation Comments aPTT (test code = 6773) 43.1 See_Comment H [Au tomated message] The system [employer] generated this result transmitted ref erence range: 24.7 - 3 6.8 second(s). The reference range was not used to int erpret this result as normal/abnormal . Lab Interpretation (test Abnormal code = 47079-3) [facility]andProthrombin Time with [id number] 09:28:39 Test Item Value Reference Range Interpretation Comments PT (test code = 6746) 16.1 See_Comment H [Auto mated message] The system [employer] generated this result transmitted ref erence range: 11.5 - 1 3.9 second(s). The reference range was not used to int erpret this result as normal/abnormal . INR (test code = 5973) 1.40 0.90-1.10 H Lab Interpretation (test Abnormal code = 89427-8) [facility]andProthrombin Time with [id number] 09:28:39 Test Item Value Reference Range Interpretation Comments PT (test code = 6746) 16.1 See_Comment H [Auto mated message] The system [employer] generated this result transmitted ref erence range: 11.5 - 1 3.9 second(s). The reference range was not used to int erpret this result as normal/abnormal . INR (test code = 5973) 1.40 0.90-1.10 H Lab Interpretation (test Abnormal code = 20281-1) [facility]andProthrombin Time with [id number] 09:28:39 Test Item Value Reference Range Interpretation Comments PT (test code = 6746) 16.1 See_Comment H [Auto mated message] The system [employer] generated this result transmitted ref erence range: 11.5 - 1 3.9 second(s). The reference range was not used to int erpret this result as normal/abnormal . INR (test code = 5973) 1.40 0.90-1.10 H Lab Interpretation (test Abnormal code = 15003-8) [facility]andU[facility] Nitrogen [id number] 23:22:37 Test Item Value Reference Range Interpretation Comments U Urea (test code = 436 mg/dL Normal r louis not 7820) available for c ollections less than 24 ho urs in duration. [facility]and[facility] Nitrogen [id number] 23:22:37 Test Item Value Reference Range Interpretation Comments U Urea (test code = 436 mg/dL Normal r louis not 7820) available for c ollections less than 24 ho urs in duration. [facility]andU[facility] Nitrogen [id number] 23:22:37 Test Item Value Reference Range Interpretation Comments U Urea (test code = 436 mg/dL Normal r louis not 7820) available for c ollections less than 24 ho urs in duration. [facility]andCreatinine [id number] 23:22:36 Test Item Value Reference Range Interpretation Comments U Creatinine (test 101.0 mg/dL 40.0-278.0 The refer ence range code = 7725) listed is for f irst morning urine collection. [facility]andCreatinine [id number] 23:22:36 Test Item Value Reference Range Interpretation Comments U Creatinine (test 101.0 mg/dL 40.0-278.0 The refer ence range code = 7725) listed is for f irst morning urine collection. [facility]andCreatinine [id number] 23:22:36 Test Item Value Reference Range Interpretation Comments U Creatinine (test 101.0 mg/dL 40.0-278.0 The refer ence range code = 7725) listed is for f irst morning urine collection. [facility] [id number] 23:22:35 Test Item Value Reference Range Interpretation Comments U Sodium (test code = 28 mEq/L Normal range not available 7809) for collections less than 24 hours in dur ation. [facility] [id number] 23:22:35 Test Item Value Reference Range Interpretation Comments U Sodium (test code = 28 mEq/L Normal range not available 7809) for collections less than 24 hours in dur ation. [facility] [id number] 23:22:35 Test Item Value Reference Range Interpretation Comments U Sodium (test code = 28 mEq/L Normal range not available 7809) for collections less than 24 hours in dur ation. [facility]and[facility] Level [id number] 23:19:07 Test Item Value Reference Range Interpretation [...] clinically sens itive and predictive indicator of ch ronic kidney disease. Albuminuria is determined by urinary albumin to creatinine rati o (UACR) in a ran dom spot urine or a 24-hour collect ion. Normal: <30 mg/gModerately increased: 30-3 00 mg/gSeverely increased: >300 mg/g [Automated mess age] The system [employer] generated this result transmit jigar reference range : <=29. The refer ence range was not u sed to interpret th is result as normal/abnormal . Lab Interpretation Abnormal (test code = 95846-4) [facility]and[facility] Level [id number] 23:19:07 Test Item Value Reference Range Interpretation [...] clinically sens itive and predictive indicator of ch ronic kidney disease. Albuminuria is determined by urinary albumin to creatinine rati o (UACR) in a ran dom spot urine or a 24-hour collect ion. Normal: <30 mg/gModerately increased: 30-3 00 mg/gSeverely increased: >300 mg/g [Automated mess age] The system [employer] generated this result transmit jigar reference range : <=29. The refer ence range was not u sed to interpret th is result as normal/abnormal . Lab Interpretation Abnormal (test code = 87637-6) [facility] Level [id number] 23:19:07 Test Item Value Reference Range Interpretation [...] 30-3 00 mg/gSeverely increased: >300 mg/g [Automated mess age] The system [employer] generated this result transmit jigar reference range : <=29. The refer ence range was not u sed to interpret th is result as normal/abnormal . Lab Interpretation Abnormal (test code = 60876-8) [facility]andProtein/Creatinine Ratio Urine 2020-11-11 23:19:06 Test Item Value Reference Range Interpretation [...] [Au tomated message] = 7805) The system [employer] generated this result transmit jigar reference range : <=0.14. The reference range was not used to interpret this result as normal/abnormal . Lab Interpretation Abnormal (test code = 20674-9) [facility]andProtein/Creatinine Ratio Urine 2020-11-11 23:19:06 Test Item Value Reference Range Interpretation [...] [Au tomated message] = 7805) The system [employer] generated this result transmit jigar reference range : <=0.14. The reference range was not used to interpret this result as normal/abnormal . Lab Interpretation Abnormal (test code = 95694-3) [facility]andProtein/Creatinine Ratio Urine 2020-11-11 23:19:06 Test Item Value Reference Range Interpretation Comments UTP Ran (test code = 23 mg/dL Normal range not 7922) available for collections les s than 24 hours i n duration. U Creatinine (test code 99.7 mg/dL 40.0-278.0 The reference range = 7725) listed is for f irst morning urine collection. U Prot/Creat (test code 0.23 g/g See_Comment H [Au tomated message] = 2735) The system [employer] generated this result transmit jigar reference range : <=0.14. The reference range was not used to interpret this result as normal/abnormal . Lab Interpretation Abnormal (test code = 43869-7) [facility]and[facility]inalysis with Microscopic 2020-11-11 22:56:40 Test Item Value Reference Interpretation Comments [...] implementation of new instrumentation in the [facility] [place], allowing greater sensitivity of measurement. Urinalysis results reported by the [facility] using existing instrumentation, as well as Urinalysis testing performed manually or by backup methodology at the [facility] [place] will remain relatively unchanged. New reporting parameters and units will now be reported for all campuses. Lab Interpretation Abnormal (test code = 16348-3) [facility]andUrinalysis with Microscopic 2020-11-11 22:56:40 Test Item Value Reference Interpretation Comments [...] implementation of new instrumentation in the [facility] [place], allowing greater sensitivity of measurement. Urinalysis results reported by the [facility] using existing instrumentation, as well as Urinalysis testing performed manually or by backup methodology at the [facility] will remain relatively unchanged. New reporting parameters and units will now be reported for all campuses. Lab Interpretation Abnormal (test code = 81022-8) [facility] [place]woodUrinalysis with Microscopic 2020-11-11 22:56:40 Test Item Value Reference Interpretation Comments [...] implementation of new instrumentation in the [facility] [place], allowing greater sensitivity of measurement. Urinalysis results reported by the [facility] using existing instrumentation, as well as Urinalysis testing performed manually or by backup methodology at the [facility] [place] will remain relatively unchanged. New reporting parameters and units will now be reported for all campuses. Lab Interpretation Abnormal (test code = 58994-0) [facility]andUrinalysis w/Microscopic if [id number] 22:48:43 Test Item Value Reference Range Interpretation [...] A Lab Interpretation (test code = Abnormal 88732-1) [facility]and[facility]inalysis w/Microscopic if [id number] 22:48:43 Test Item Value Reference Range Interpretation [...] A Lab Interpretation (test code = Abnormal 89084-5) [facility]andUrinalysis w/Microscopic if [id number] 22:48:43 Test Item Value Reference Range Interpretation [...] A Lab Interpretation (test code = Abnormal 12510-0) [facility] Cross[facility] 2020-11-11 22:06:30 Test Item Value Reference Range Interpretation Comments TMP XM Interp RBC units (test code = crossmatched for 7566) transfusion appear ___MANUELA acceptable. Nivia ASHLEY ed by: Nivia NEAL ed Date/Time: 11.11.2020 17:0 6 PM CDT Transcribe d Date/Time: 11.11.2020 17:0 6 PM CDTElectronical ly Signed By: YAS ASHLEY, on 11.11.2020 17:0 6 PM [facility] Interpretation Crossmatch 2020-11-11 22:06:30 Test Item Value Reference Range Interpretation Comments TMP XM Interp RBC units (test code = crossmatched for 7566) transfusion appear _MANUELA acceptable. Nivia ASHLEY ed by: Nivia NEAL ed Date/Time: 10.25 17:06 PM CDT Transcribed Date/Time: 10.25 17:06 PM CDTElectronical ly Signed By: YAS ASHLEY, on 11.11.2020 17:0 6 PM [facility] Interpretation Crossmatch 2020-11-11 22:06:30 Test Item Value Reference Range Interpretation Comments TMP XM Interp RBC units (test code = crossmatched for 7566) transfusion appear _Nivia Ramírez ed by: Nivia NEAL ed Date/Time: 10.25 17:06 PM CDT Transcribed Date/Time: 10.25 17:06 PM CDTElectronical ly Signed By: YAS ASHLEY, on 11.11.2020 17:0 6 PM [facility] RBC:G15 NE, 1 Units 2020-11-11 19:07:08 Test Item Value Reference Range Interpretation Comments PRBC Product Ready 1 Red Blood Cells (test code = Available - 19088-6) Order Form 03 when ready for product issue. Unit Number (test [id number] code = 7002) Product Code (test [id number] code = 7003) Unit Expiration [id number] (test code = 328715) Unit Blood Type 6200 (test code = 7004) Product Code Text RBCIRLR CPD AS1 (test code = 500mL 397642) Crossmatch [id number] Expiration Date (test code = ) Unit Irradiated IRRADIATED (test code = 727250) Dispense Status ISSUED (test code = 7001) Unit Blood Type A Positive (test code = 7005) Product Baler Operator .BPAM ____ Location (test ___ code = 417743) ___ ____ [facility] RBC:G15 NE, 1 Units 2020-11-11 19:07:08 Test Item Value Reference Range Interpretation Comments PRBC Product Ready 1 Red Blood Cells (test code = Available - 08113-9) Order Form 03 when ready for product issue. Unit Number (test [id number] code = 7002) Product Code (test P3266A85 code = 7003) Unit Expiration (test code = 567619) Unit Blood Type 6200 (test code = 7004) Product Code Text RBCIRLR CPD AS1 (test code = 500mL 709160) Crossmatch [id number] Expiration Date (test code = 686018) Unit Irradiated IRRADIATED (test code = 987592) Dispense Status ISSUED (test code = 7001) Unit Blood Type A Positive (test code = 7005) Product Baler Operator .BPAM ____ Location (test ___ code = 333580) ___ ____ [facility] RBC:G15 NE, 1 Units 2020-11-11 19:07:08 Test Item Value Reference Range Interpretation Comments PRBC Product Ready 1 Red Blood Cells (test code = Available - 24312-3) Order Form 03 when ready for product issue. Unit Number (test [id number] code = 7002) Product Code (test C1984D91 code = 7003) Unit Expiration (test code = 313173) Unit Blood Type 6200 (test code = 7004) Product Code Text RBCIRLR CPD AS1 (test code = 500mL 638564) Crossmatch [id number] Expiration Date (test code = 906464) Unit Irradiated IRRADIATED (test code = 055681) Dispense Status ISSUED (test code = 1) Unit Blood Type A Positive (test code = 7005) Product Baler Operator .BPAM ____ Location (test ___ code = 349904) ___ ____ [facility] Product Ready for Baler Operator 2020-11-11 13:49:44 Test Item Value Reference Range Interpretation Comments PRBC Product Ready B2 Blood Bank Product is ready for for Baler Operator (test pick out hand on [place] code = 017751) 2020 08:4 4:54 CDT. [facility] Product Ready for Baler Operator 2020-11-11 13:49:44 Test Item Value Reference Range Interpretation Comments PRBC Product Ready B2 Blood Bank Product is ready for for Baler Operator (test pick out hand on [place] code = 10010427) 2020 08:4 4:54 CDT. [facility] Product Ready for Baler Operator 2020-11-11 13:49:44 Test Item Value Reference Range Interpretation Comments PRBC Product Ready B2 Blood Bank Product is ready for for Baler Operator (test pick out hand on [place] code = 10010427) 2020 08:4 4:54 CDT. [facility]COVID-19 (SARS-CoV-2) PCR- Asymptomatic [id number] 07:02:50 Test Item Value Reference Range Interpretation Comments COVID19 (SARS Not Detected Not Detected This test is a CoV-2) Result qualitative (test code = reverse-transcr iptase 42564-1) polymerase kerry n reaction (RT-PC R) developed for t he Foap AB MELISSA 680 0 system and inte nded [...] were verified by the Microbiology Laboratory at [facility] [place], CLIA Accreditation # : [id number] and CAP Accreditation # : [id number]. Result s must be interpreted within the [...] te sting if clinically indicated. COVID19 SARS MENTAL HEALTH PROGRAM SPECIALIST Swab Source (test code = 51372) COVID19 SARS Inpatient Indication (test Admission code = 18885) DARCI (test code = "Hematology 7 day DARCI) interval retest per Infectious Disease recommendations". [facility] (SARS-CoV-2) PCR- Asymptomatic [id number] 07:02:50 Test Item Value Reference Range Interpretation Comments COVID19 (SARS Not Detected Not Detected This test is a CoV-2) Result qualitative (test code = reverse-transcr iptase 84972-1) polymerase kerry n reaction (RT-PC R) developed [...] were verified by the Microbiology Laboratory at [facility], CLIA Accreditation # : [id number] and CAP Accreditation # : [id number]. Result s must be interpreted within the [...] te sting if clinically indicated. COVID19 SARS MENTAL HEALTH PROGRAM SPECIALIST Swab Source (test code = 33539) COVID19 SARS Inpatient Indication (test Admission code = 20905) DARCI (test code = "Hematology 7 day DARCI) interval retest per Infectious Disease recommendations". [facility] (SARS-CoV-2) PCR- Asymptomatic [id number] 07:02:50 Test Item Value Reference Range Interpretation Comments COVID19 (SARS Not Detected Not Detected This test is a CoV-2) Result qualitative (test code = reverse-transcr iptase 96819-3) polymerase kerry n reaction (RT-PC R) developed for t he Foap AB MELISSA 680 0 system and inte nded [...] were verified by the Microbiology Laboratory at [facility], CLIA Accreditation # : [id number] and CAP Accreditation # : [id number]. Result s must be interpreted within the [...] te sting if clinically indicated. COVID19 SARS MENTAL HEALTH PROGRAM SPECIALIST Swab Source (test code = 17578) COVID19 SARS Inpatient Indication (test Admission code = 58288) DARCI (test code = "Hematology 7 day DARCI) interval retest per Infectious Disease recommendations". [facility]andPeripheral Smr For Doc Review 2020-11-09 16:17:06 Test Item Value Reference Range Interpretation Comments Peripheral Smear (test code = 4273) [facility] 2020-11-09 16:17:06 Test Item Value Reference Range Interpretation Comments Peripheral Smear (test code = 4273) [facility] Review 2020-11-09 16:17:06 Test Item Value Reference Range Interpretation Comments Peripheral Smear (test code = 4273) [facility] Glucose [id number] 04:39:40 Test Item Value Reference Interpretation Comments Range POC Glucose (test 144 mg/dL 70-99 H RN Notifie dCapillary code = 56004-0) blood sample s, e.g. obtained by fingerstick, [...] Capillary code = 9554) Performing Lab (test [facility] Main Main Ca [facility] code = 33452) [facility] MD Yamilet rowan Clinical Lab, [address] [place] [address], [place], [place] [address]; Sheet Manufacturing Supervisor: Betsey Johnson MD Lab Interpretation Abnormal (test code = 72629-5) [facility] Glucose [id number] 04:39:40 Test Item Value Reference Interpretation Comments Range POC Glucose (test 144 mg/dL 70-99 H RN Notifie dCapillary code = 73640-3) blood sample s, e.g. obtained by fingerstick, [...] Capillary code = 9554) Performing Lab (test [facility] code = 07719) [facility], [address] [place] [address]; Sheet Manufacturing Supervisor: Betsey Johnson MD Lab Interpretation Abnormal (test code = 60375-0) [facility] Glucose [id number] 04:39:40 Test Item Value Reference Interpretation Comments Range POC Glucose (test 144 mg/dL 70-99 H RN Notifie dCapillary code = 51142-0) blood sample s, e.g. obtained by fingerstick, [...] Capillary code = 9554) Performing Lab (test [facility] code = 96779) [facility] MD Yamilet rowan Clinical Lab, [address] [place] [address]; Sheet Manufacturing Supervisor: Betsey Johnson MD Lab Interpretation Abnormal (test code = 34560-1) [facility] Oximetry [id number] 15:03:09 Test Item Value Reference Interpretation Comments Range POC O2 75.8 % Saturation,Venous (test code = 91917) POC Oxyhemoglobin, 73.7 % Venous (test code = 26853) POC Hemoglobin, total 8.8 g/dL 13.5-17.5 L (test code = 75084) POC Carboxyhemoglobin 0.7 % 0.0-1.9 (test code = 90116) POC Methemoglobin 2.0 % 0.0-1.5 H Method sam cription: (test code = 78720) The ABL8 0 FLEX CO-OX OSM analyzer [...] Site (test Main pulm art code = 60167) Performing Lab (test [facility] Main Main Ca mpus code = 13936) [facility] Cli nical Lab, [facility] [place] [address]; Sheet Manufacturing Supervisor: Betsey Johnson MD Lab Interpretation Abnormal (test code = 11866-5) [facility] [id number] 15:03:09 Test Item Value Reference Interpretation Comments Range POC O2 75.8 % Saturation,Venous (test code = 99473) POC Oxyhemoglobin, 73.7 % Venous (test code = 53558) POC Hemoglobin, total 8.8 g/dL 13.5-17.5 L (test code = 74542) POC Carboxyhemoglobin 0.7 % 0.0-1.9 (test code = 49786) POC Methemoglobin 2.0 % 0.0-1.5 H Method sam cription: (test code = 02116) The ABL8 0 FLEX CO-OX OSM analyzer is a portable, autom ated analyzer that measures oxygen saturation (sO2 ), concentration o f total hemoglobi n (ctHb), fractio n of oxygenated hemo globin in total hemogl obin (FO2Hb), fracti on of methemoglobin i n total hemoglobi n (FMetHb), and fraction of carboxyhemoglob in in total hemoglobi n (FCOHb) co-oxim etry parameters in central hospital blood. The anal yzer uses spectrophotomet ry to perform quantit ative measurement of the parameters list ed from a 65l sa mple. POC OX Draw Site (test Main pul art code = 54261) Performing Lab (test [facility] Ca mpus code = 49718) [facility] Cli nical Lab, [address] [facility], [place] [address]; Sheet Manufacturing Supervisor: Betsey Johnson MD Lab Interpretation Abnormal (test code = 53659-8) [facility] O[facility]etry [id number] 15:03:09 Test Item Value Reference Interpretation Comments Range POC O2 75.8 % Saturation,Venous (test code = 52002) POC Oxyhemoglobin, 73.7 % Venous (test code = 31877) POC Hemoglobin, total 8.8 g/dL 13.5-17.5 L (test code = 26920) POC Carboxyhemoglobin 0.7 % 0.0-1.9 (test code = 80285) POC Methemoglobin 2.0 % 0.0-1.5 H Method sam cription: (test code = 27739) The ABL8 0 FLEX CO-OX OSM analyzer is a portable, autom ated analyzer that measures oxygen saturation (sO2 ), concentration o f total hemoglobi n (ctHb), fractio n of oxygenated hemo globin in total hemogl obin (FO2Hb), fracti on of methemoglobin i n total hemoglobi n (FMetHb), and fraction of carboxyhemoglob in in total hemoglobi n (FCOHb) co-oxim etry parameters in central hospital blood. The anal yzer uses spectrophotomet ry to perform quantit ative measurement of the parameters list ed from a 65l sa mple. POC OX Draw Site (test Main pul art code = 99979) Performing Lab (test [facility] Ca mpus code = 40165) [facility] Cli nical Lab, [address] [place], [place] [address]; Sheet Manufacturing Supervisor: Betsey Johnson MD Lab Interpretation Abnormal (test code = 31338-1) [facility] Platelet Fraction 2020-11-02 10:14:02 Test Item Value Reference Range Interpretation Comments IPF (test code = 5.9 % 0.8-6.2 5988) DARCI (test code = For patients with DARCI) Platelets lower than 100 k/mm3 [facility] Platelet Fraction 2020-11-02 10:14:02 Test Item Value Reference Range Interpretation Comments IPF (test code = 5.9 % 0.8-6.2 5988) DARCI (test code = For patients with DARCI) Platelets lower than 100 k/mm3 [facility] Platelet Fraction 2020-11-02 10:14:02 Test Item Value Reference Range Interpretation Comments IPF (test code = 5.9 % 0.8-6.2 5988) DARCI (test code = For patients with DARCI) Platelets lower than 100 k/mm3 [facility] [id number] 10:14:01 Test Item Value Reference Range Interpretation Comments Retic Cnt Auto (test 0.6 % 0.5-1.5 code = 29866-3) RETHE (test code = 37.5 pg 23.2-37.5 6973) IRF (test code = 16.3 % 2.3-18.0 47332-8) DARCI (test code = DARCI) For patients with Platelets lower than 100 k/mm3 [facility] [id number] 10:14:01 Test Item Value Reference Range Interpretation Comments Retic Cnt Auto (test 0.6 % 0.5-1.5 code = 11373-1) RETHE (test code = 37.5 pg 23.2-37.5 6973) IRF (test code = 16.3 % 2.3-18.0 12884-5) DARCI (test code = DARCI) For patients with Platelets lower than 100 k/mm3 [facility] [id number] 10:14:01 Test Item Value Reference Range Interpretation Comments Retic Cnt Auto (test 0.6 % 0.5-1.5 code = 53693-0) RETHE (test code = 37.5 pg 23.2-37.5 6973) IRF (test code = 16.3 % 2.3-18.0 47941-2) DARCI (test code = DARCI) For patients with Platelets lower than 100 k/mm3 [facility])2020-10-31 11:01:08 Test Item Value Reference Range Interpretation Comments NT ProBNP (test code = 3919 pg/mL See_Comment H [Aut omated message] 9385) The system [employer] generated this result transmit jigar reference range : <=125. The refe rence range was not u sed to interpret th is result as normal/abnormal . Lab Interpretation Abnormal (test code = 72384-8) [facility])2020-10-31 11:01:08 Test Item Value Reference Range Interpretation Comments NT ProBNP (test code = 3919 pg/mL See_Comment H [Aut omated message] 9385) The system [employer] generated this result transmit jigar reference range : <=125. The refe rence range was not u sed to interpret th is result as normal/abnormal . Lab Interpretation Abnormal (test code = 36636-7) [facility])2020-10-31 11:01:08 Test Item Value Reference Range Interpretation Comments NT ProBNP (test code = 3919 pg/mL See_Comment H [Aut omated message] 9385) The system [employer] generated this result transmit jigar reference range : <=125. The refe rence range was not u sed to interpret th is result as normal/abnormal . Lab Interpretation Abnormal (test code = 52561-3) [facility] [id number] 21:14:59 Test Item Value Reference Range Interpretation Comments Final Report (test No growth code = 8488) Path Review - Urine The results have been (test code = 8483) reviewed and electronically signed by Pathologist:Mary Last MD, PhD #[id number] [facility] [id number] 21:14:59 Test Item Value Reference Range Interpretation Comments Final Report (test No growth code = 8488) Path Review - Urine The results have been (test code = 8483) reviewed and electronically signed by Pathologist:Mary Last MD, PhD #[id number] [facility] [id number] 21:14:59 Test Item Value Reference Range Interpretation Comments Final Report (test No growth code = 8488) Path Review - Urine The results have been (test code = 8483) reviewed and electronically signed by Pathologist:Mary Last MD, PhD #[id number] [facility] DNA [id number] 00:21:11 Test Item Value Reference Range Interpretation Comments HBV DNA [facility] Undetected Undetected IU/mL Result in log IU/mL is (test code = Undetected. 88684-2) ----ADDITIO NAL INFORMATION---- ----The quantif ication range of this a ssay is 10 to1,000,000,000 IU/mL (1.00 log to 9. 00 log IU/mL). Testing was performed using the melissa HBV test ([employer] with the melissa 6800 System. Test Pe rformed by:[place] [id number] Director: Sukhwinder Neville M.D. Ph. D.; CLIA# [id number] [facility] DNA [id number] 00:21:11 Test Item Value Reference Range Interpretation Comments HBV DNA [facility] Undetected Undetected IU/mL Result in log IU/mL is (test code = Undetected. 82411-3) ----ADDITIO NAL INFORMATION---- ----The quantif ication range of this a ssay is 10 to1,000,000,000 IU/mL (1.00 log to 9. 00 log IU/mL). Testing was performed using the melissa HBV test ([employer] with the melissa 6800 System. Test Pe rformed by:[place] [id number] Director: Sukhwinder Neville M.D. Ph. D.; CLIA# [id number] [facility] [id number] 00:21:11 Test Item Value Reference Range Interpretation Comments HBV DNA [facility] Undetected Undetected IU/mL Result in log IU/mL is (test code = Undetected. 47604-0) ----ADDITIO NAL INFORMATION---- ----The quantif ication range of this a ssay is 10 to1,000,000,000 IU/mL (1.00 log to 9. 00 log IU/mL). Testing was performed using the melissa HBV test ([employer] with the melissa 6800 System. Test Pe rformed by:[place] [id number] Director: Sukhwinder Neville M.D. Ph. D.; CLIA# [id number] [facility]andFungus [id number] 21:36:34 Test Item Value Reference Range Interpretation Comments Final Report (test Few Yeast A code = 8488) isolatedProbable oral jesse Path Review - Fungus The results have been A (test code = 8479) reviewed and electronically signed by Pathologist:Mary Last MD, PhD #[id number] DARCI (test code = DARCI) And RULCultures are held for 4 weeks before finalization. Lab Interpretation Abnormal (test code = 72706-3) [facility] [id number] 21:36:34 Test Item Value Reference Range Interpretation Comments Final Report (test Few Yeast A code = 8488) isolatedProbable oral jesse Path Review - Fungus The results have been A (test code = 8479) reviewed and electronically signed by Pathologist:Mary Last MD, PhD #[id number] DARCI (test code = DARCI) And RULCultures are held for 4 weeks before finalization. Lab Interpretation Abnormal (test code = 54345-2) [facility]and[facility] [id number] 21:36:34 Test Item Value Reference Range Interpretation Comments Final Report (test Few Yeast A code = 8488) isolatedProbable oral jesse Path Review - Fungus The results have been A (test code = 8479) reviewed and electronically signed by Pathologist:Mary Last MD, PhD #[id number] DARCI (test code = DARCI) And RULCultures are held for 4 weeks before finalization. Lab Interpretation Abnormal (test code = 92512-1) [facility]andTobramycin [id number] 16:34:36 Test Item Value Reference Range Interpretation Comments Tobra Lvl <0.43 mcg/mL No reference ra nges (test code = established for random 7624) levels, please refer to trough and/or p [...] not 7623) availablefor th is sample. The devorah e reported is the samplecollectio n date. Tobra Ds Tm see note Level, date, an d time of (test code = previous dose i s not 7624) availablefor th is sample. The devorah e reported is the samplecollectio n date. DARCI (test code Please draw 30 = DARCI) minutes before dose is due on 10/27 at 11am [facility]andTobramycin [id number] 16:34:36 Test Item Value Reference Range Interpretation Comments Tobra Lvl <0.43 mcg/mL No reference ra nges (test code = established for random 7624) levels, please refer to trough and/or p [...] not 7623) availablefor th is sample. The devorah e reported is the samplecollectio n date. Tobra Ds Tm see note Level, date, an d time of (test code = previous dose i s not 7624) availablefor th is sample. The devorah e reported is the samplecollectio n date. DARCI (test code Please draw 30 = DARCI) minutes before dose is due on 10/27 at 11am [facility]andTobramycin [id number] 16:34:36 Test Item Value Reference Range Interpretation [...] previous dose i s not 7623) availablefor is sample. The devorah e reported is the samplecollectio n date. Tobra Ds Tm see note Level, date, an d time of (test code = previous dose i s not 7624) availablefor is sample. The devorah e reported is the samplecollectio n date. DARCI (test code Please draw 30 = DARCI) minutes before dose is due on 10/27 at 11am [facility]andFerritin [id number] 09:30:46 Test Item Value Reference Range Interpretation Comments Ferritin Lvl (test code = 5608) 899 ng/mL 30-400 H Lab Interpretation (test code = Abnormal 47872-0) [facility]and[facility] [id number] 09:30:46 Test Item Value Reference Range Interpretation Comments Ferritin Lvl (test code = 5608) 899 ng/mL 30-400 H Lab Interpretation (test code = Abnormal 09019-8) [facility]and[facility] [id number] 09:30:46 Test Item Value Reference Range Interpretation Comments Ferritin Lvl (test code = 5608) 899 ng/mL 30-400 H Lab Interpretation (test code = Abnormal 61841-3) [facility]and[facility]astro[facility] Multiplex Panel Path [id number] 20:12:16GIMP PRNo diarrheal pathogens detected by multiplex nucleic acid detection. A negative result does not rule-out the possibility of a diarrheal pathogen not are detected by this panel. Non- infectious causes of diarrhea should also be considered....Reviewed and Electronically signed by Pathologist:Monserrat LVOE, PhD #[id number] [facility]Un[facility] RenaissanceGastrointestinal Multiplex Panel Path [id number] 20:12:16GIMP PRNo diarrheal pathogens detected by multiplex nucleic acid detection. A negative result does not rule- out the possibility of a diarrheal pathogen not are detected by this panel. Non- infectious causes of diarrhea should also be considered....Reviewed and Electronically signed by Pathologist:Monserrat LOVE, PhD #[id number] [facility]ENTERUnDo[facility] RenaissanceGastrointestinal Multiplex Panel Path [id number] 20:12:16GIMP PRNo diarrheal pathogens detected by multiplex nucleic acid detection. A negative result does not rule- out the possibility of a diarrheal pathogen not are detected by this panel. Non- infectious causes of diarrhea should also be considered....Reviewed and Electronically signed by Pathologist:Monserrat LOVE, PhD #[id number] [facility]ENTERUnDo[facility] at RenaissanceClostridium Difficile DNA Path [id number] 19:51:50C diff DNA PRC. difficile EIA is performed only on stools positive for C. difficile DNA and detects the presence of C. difficile toxin proteins via a rapid immunoassay. Patients positive for BOTH C. difficile DNA and EIA are more likely to have a C. difficile infection....Reviewed and Electronically signed by Pathologist:Jonathon Bethea MD, PhD #[id number] [facility]ENTERUnDo[facility] at RenaissanceClostridium Difficile DNA Path [id number] 19:51:50C diff DNA PRC. difficile EIA is performed only on stools positive for C. difficile DNA and detects the presence of C. difficile toxin proteins via a rapid immunoassay. Patients positive for BOTH C. difficile DNA and EIA are more likely to have a C. difficile infection....Reviewed and Electronically signed by Pathologist:Jonathon Bethea MD, PhD #[id number] [facility] [facility]UnDo[facility] RenaissanceClostridium Difficile DNA Path Lwlxje0847-43-11 19:51:50C diff DNA PRC. difficile EIA is performed only on stools positive for C. difficile DNA and detects the presence of C. difficile toxin proteins via a rapid immunoassay. Patients positive for BOTH C. difficile DNA and EIA are more likely to have a C. difficile infection....Reviewed and Electronically signed by Pathologist:Jonathon Bethea MD, PhD #[id number] [facility] HALMAUnDoctors Hospital at RenaissanceClostridium Difficile DNA Jqqpl2604-08-37 15:56:03 Test Item Value Reference Range Interpretation Comments C difficile DNA (test Positive Negative A code = 5134) C difficle Toxin EIA Positive Negative A (test code = 8961) C difficile C. difficile EIA is Interpretation (test code performed only on = 20990703) stools positive for C. difficile DNA and detects the presence of C. difficile toxin proteins via a rapid immunoassay. Patients positive for BOTH C. difficile DNA and EIA are more likely to have a C. difficile infection. Lab Interpretation (test Abnormal code = 98857-1) [facility]ostrid[facility]icile [facility] 2020-10-22 15:56:03 Test Item Value Reference Range Interpretation Comments C difficile DNA (test Positive Negative A code = 5134) C difficle Toxin EIA Positive Negative A (test code = 8961) C difficile C. difficile EIA is Interpretation (test code performed only on = 20990703) stools positive for C. difficile DNA and detects the presence of C. difficile toxin proteins via a rapid immunoassay. Patients positive for BOTH C. difficile DNA and EIA are more likely to have a C. difficile infection. Lab Interpretation (test Abnormal code = 87679-6) [facility]and[facility]ostrid[facility] Difficile DNA Assay 2020-10-22 15:56:03 Test Item Value Reference Range Interpretation Comments C difficile DNA (test Positive Negative A code = 5134) C difficle Toxin EIA Positive Negative A (test code = 8961) C difficile C. difficile EIA is Interpretation (test code performed only on = 20990703) stools positive for C. difficile DNA and detects the presence of C. difficile toxin proteins via a rapid immunoassay. Patients positive for BOTH C. difficile DNA and EIA are more likely to have a C. difficile infection. Lab Interpretation (test Abnormal code = 36048-4) [facility] 2020-10-21 22:23:03 Test Item Value Reference Range Interpretation [...] Not Detected V) (test code = 7321) [facility] 2020-10-21 22:23:03 Test Item Value Reference Range Interpretation [...] Not Detected V) (test code = 7321) [facility] [place]Gastrointestinal Multiplex [facility] 2020-10-21 22:23:03 Test Item Value Reference Range Interpretation [...] Not Detected V) (test code = 7321) [facility] Surface Ag w/Confirm 2020-10-19 16:28:28 Test Item Value Reference Range Interpretation Comments Hep Bs Ag-[place] Negative Negative Test Perform ed by:[place] (test code = [facility] - 5196-1) [place] g[employer]it ior [id number] gokit ior [employer] [place] [id number] Director: Sukhwinder Neville M.D. Ph. D.; CLIA# [id number] [facility] B Surface Ag w/Confirm 2020-10-19 16:28:28 Test Item Value Reference Range Interpretation Comments Hep Bs Ag-Oropeza Negative Negative Test Perform ed by:[place] (test code = [facility] - 5196-1) [place] [employer] [id number] gokit ior [employer] [place] [id number] Director: Sukhwinder Neville M.D. Ph. D.; CLIA# [id number] [facility] B Surface Ag w/Confirm 2020-10-19 16:28:28 Test Item Value Reference Range Interpretation Comments Hep Bs Ag-Oropeza Negative Negative Test Perform ed by:[place] (test code = [facility] - 5196-1) [place] [employer] [address] [place], [place] [address]Eoe Director: Sukhwinder Neville M.D. Ph. D.; CLIA# [id number] [facility] Count w/o Bwdguucrjhra7701-17-66 09:59:09 Test Item Value Reference Range Interpretation Comments WBC (test code = 7.1 K/uL 4.0-11.0 6690-2) RBC (test code = 789-8) 2.73 See_Comment L [Au tomated message] The system [employer] generated this result transmitted ref erence range: 4.50 - 6 .00 M/uL. The refer ence range was not u sed to interpret this result as normal/abnor mal. Hgb (test code = 718-7) 7.9 See_Comment L [Au tomated message] The system [employer] generated this result transmitted ref erence range: [...] See_Comment [Automate d message] 786-4) The system [employer] generated this result transmitted ref erence range: 31.0 - 3 6.0 gm/dL. The refe rence range was not u sed to interpret this result as normal/abnor mal. RDW-SD (test code = 54.5 fL 35.1-46.3 H 09602-3) RDW-CV (test code = 16.9 % 12.0-15.5 [...] cell differential. [Automated mess age] The system [employer] generated this result transmitted ref erence range: <=0.0. T he reference range was not used to int erpret this result as normal/abnormal . Lab Interpretation Abnormal (test code = 94253-8) [facility] Blood Count w/o Beqqwvzevfum2865-97-74 09:59:09 Test Item Value Reference Range Interpretation Comments WBC (test code = 7.1 K/uL 4.0-11.0 6690-2) RBC (test code = 789-8) 2.73 See_Comment L [Au tomated message] The system [facility] [employer] generated this result transmitted ref erence range: 4.50 - 6 .00 M/uL. The refer ence range was not u sed to interpret this result as normal/abnor mal. Hgb (test code = 718-7) 7.9 See_Comment L [Au tomated message] The system [facility] [employer] generated this result transmitted ref erence range: [...] See_Comment [Automate d message] 786-4) The system [facility] [employer] generated this result transmitted ref erence range: 31.0 - 3 6.0 gm/dL. The refe rence range was not u sed to interpret this result as normal/abnor mal. RDW-SD (test code = 54.5 fL 35.1-46.3 H 99932-6) RDW-CV (test code = 16.9 % 12.0-15.5 [...] cell differential. [Automated mess age] The system [employer] generated this result transmitted ref erence range: <=0.0. T he reference range was not used to int erpret this result as normal/abnormal . Lab Interpretation Abnormal (test code = 30550-0) [facility] Blood Count w/o Dsqajzkpvngl8881-07-27 09:59:09 Test Item Value Reference Range Interpretation Comments WBC (test code = 7.1 K/uL 4.0-11.0 6690-2) RBC (test code = 789-8) 2.73 See_Comment L [Au tomated message] The system [employer] generated this result transmitted ref erence range: 4.50 - 6 .00 M/uL. The refer ence range was not u sed to interpret this result as normal/abnor mal. Hgb (test code = 718-7) 7.9 See_Comment L [Au tomated message] The system [employer] generated this result transmitted ref erence range: [...] See_Comment [Automate d message] 786-4) The system [employer] generated this result transmitted ref erence range: 31.0 - 3 6.0 gm/dL. The refe rence range was not u sed to interpret this result as normal/abnor mal. RDW-SD (test code = 54.5 fL 35.1-46.3 H 86906-7) RDW-CV (test code = 16.9 % 12.0-15.5 [...] cell differential. [Automated mess age] The system [employer] generated this result transmitted ref erence range: <=0.0. T he reference range was not used to int erpret this result as normal/abnormal . Lab Interpretation Abnormal (test code = 13331-2) [facility]andLactic Acid, Sqvodn5066-55-62 09:42:03 Test Item Value Reference Range Interpretation Comments V Lactate (test code = 2519-7) 0.8 mmol/L 0.5-1.6 [facility]andLactic Acid, Tkdtvk5257-66-56 09:42:03 Test Item Value Reference Range Interpretation Comments V Lactate (test code = 2519-7) 0.8 mmol/L 0.5-1.6 [facility]andLactic Acid, Jfvzlh9838-83-36 09:42:03 Test Item Value Reference Range Interpretation Comments V Lactate (test code = 2519-7) 0.8 mmol/L 0.5-1.6 [facility]andHepatitis B Surface Tn3938-17-64 10:42:36 Test Item Value Reference Range Interpretation Comments HBsAg Received (test See Note HBsAg w as sent to a code = 40571) reference lab for testing. Expect results on Hepatitis B Surface Antigen w/ Conf irm within 96 hours . [facility]andHepatitis B Surface [id number] 10:42:36 Test Item Value Reference Range Interpretation Comments HBsAg Received (test See Note HBsAg w as sent to a code = 86034) reference lab for testing. Expect results on Hepatitis B Surface Antigen w/ Conf irm within 96 hours . [facility]andHepatitis B Surface [id number] 10:42:36 Test Item Value Reference Range Interpretation Comments HBsAg Received (test See Note HBsAg w as sent to a code = 71037) reference lab for testing. Expect results on Hepatitis B Surface Antigen w/ Conf irm within 96 hours . [facility]andABG2021-07-19 09:56:39 Test Item Value Reference Range Interpretation Comments pH Art (test code = 7.51 7.35-7.45 H Results are 2744-1) corrected for a body temp of 37C. pCO2 Art (test code = 33.9 See_Comment L [Auto mated message] 2018-10) The system [employer] generated this result transmit jigar reference range : 35.0 - 48.0 mmH g. The reference r louis was not used to interpret this result as normal/abnormal . pO2 Art (test code = 104 See_Comment [Autom ated message] 0738-6) The system [employer] generated this result transmit jigar reference range : 83 - 108 mmHg. The reference range was not used to interpret this result as normal/abnormal . HCO3 Art (test code = 27 mmol/L 1959-06) Base Excess Art (test 4 mmol/L -2-3 H code = 1925-7) O2 Sat Art (test code = 99 % 95-99 6512) Lab Interpretation (test Abnormal code = 49446-3) [facility]andABG2021-07-19 09:56:39 Test Item Value Reference Range Interpretation Comments pH Art (test code = 7.51 7.35-7.45 H Results are 2744-1) corrected for a body temp of 37C. pCO2 Art (test code = 33.9 See_Comment L [Auto mated message] 2018-10) The system [employer] generated this result transmit jigar reference range : 35.0 - 48.0 mmH g. The reference r louis was not used to interpret this result as normal/abnormal . pO2 Art (test code = 104 See_Comment [Autom ated message] 2708-6) The system [employer] generated this result transmit jigar reference range : 83 - 108 mmHg. The reference range was not used to interpret this result as normal/abnormal . HCO3 Art (test code = 27 mmol/L -1959-06) Base Excess Art (test 4 mmol/L -2-3 H code = 1925-7) O2 Sat Art (test code = 99 % 95-99 6512) Lab Interpretation (test Abnormal code = 72608-1) [facility]G2021-07-19 09:56:39 Test Item Value Reference Range Interpretation Comments pH Art (test code = 7.51 7.35-7.45 H Results are 2744-1) corrected for a body temp of 37C. pCO2 Art (test code = 33.9 See_Comment L [Auto mated message] 2018-10) The system [employer] generated this result transmit jigar reference range : 35.0 - 48.0 mmH g. The reference r louis was not used to interpret this result as normal/abnormal . pO2 Art (test code = 104 See_Comment [Autom ated message] 6) The system [employer] generated this result transmit jigar reference range : 83 - 108 mmHg. The reference range was not used to interpret this result as normal/abnormal . HCO3 Art (test code = 27 mmol/L -28 1959-) Base Excess Art (test 4 mmol/L -2-3 H code = 1925-7) O2 Sat Art (test code = 99 % 95-99 6512) Lab Interpretation (test Abnormal code = 15962-4) [facility]and[facility]comycin Level Kdrxfq9943-21-12 06:58:59 Test Item Value Reference Range Interpretation [...] report ed is the samplecollectio n date. [facility]ellandVancomycin Level Msjxmi8831-49-73 06:58:59 Test Item Value Reference Range Interpretation [...] report ed is the samplecollectio n date. [facility]ellandVancomycin Level Ezvuqx9678-09-62 06:58:59 Test Item Value Reference Range Interpretation [...] report ed is the samplecollectio n date. [facility]ellandMRSA Screening Nxvmnta7606-42-55 21:32:10 Test Item Value Reference Range Interpretation Comments Final Report (test No Methicillin resistant code = 8488) Staphylococcus aureus isolated. Path Review (test The results have been code = 8492) reviewed and electronically signed by Pathologist:Mary Last MD, PhD #[id number] [facility]ellandMRSA Screening Uxvqija5696-15-77 21:32:10 Test Item Value Reference Range Interpretation Comments Final Report (test No Methicillin resistant code = 8488) Staphylococcus aureus isolated. Path Review (test The results have been code = 8492) reviewed and electronically signed by Pathologist:Mary Last MD, PhD #[id number] [facility]ellandMRSA Screening Dihruaa7601-21-27 21:32:10 Test Item Value Reference Range Interpretation Comments Final Report (test No Methicillin resistant code = 8488) Staphylococcus aureus isolated. Path Review (test The results have been code = 8492) reviewed and electronically signed by Pathologist:Mary Last MD, PhD #[id number] [facility]and[facility] Add-On Test 2020-10-10 07:25:00 Test Item Value Reference Range Interpretation Comments Ordered (test code = 6568) Test Added Test Needed (test code = 7604) mag [facility]os [facility]-On Test 2020-10-10 07:25:00 Test Item Value Reference Range Interpretation Comments Ordered (test code = 6568) Test Added Test Needed (test code = 7604) mag NASH phos [facility] Laboratory Add-On Test 2020-10-10 07:25:00 Test Item Value Reference Range Interpretation Comments Ordered (test code = 6568) Test Added Test Needed (test code = 7604) mag NASH phos [facility]ellandCalcium Ionized, Yugtsg6212-16-04 13:46:31 Test Item Value Reference Range Interpretation Comments V Ion Ca (test code = 24827-7) 1.14 mmol/L 1.15-1.29 L Lab Interpretation (test code = Abnormal 89199-5) [facility]andCalcium Ionized, Fufnpo7778-95-86 13:46:31 Test Item Value Reference Range Interpretation Comments V Ion Ca (test code = 90944-5) 1.14 mmol/L 1.15-1.29 L Lab Interpretation (test code = Abnormal 30766-7) [facility]andCalcium Ionized, Rgbrnj3425-26-86 13:46:31 Test Item Value Reference Range Interpretation Comments V Ion Ca (test code = 91599-4) 1.14 mmol/L 1.15-1.29 L Lab Interpretation (test code = Abnormal 74969-7) [facility]ellandLegionella Trblcvj1785-52-08 21:36:07 Test Item Value Reference Range Interpretation Comments Final Report (test No Legionella species code = 8488) isolated Path Review - The results have been Legionella (test code reviewed and = 8480) electronically signed by Pathologist:Mary Last MD, PhD #[id number] DARCI (test code = DARCI) Label says L & RUL [facility]andLegisleepy eye [facility] Awpnfvq8920-56-86 21:36:07 Test Item Value Reference Range Interpretation Comments Final Report (test No Legionella species code = 8488) isolated Path Review - The results have been Legionella (test code reviewed and = 8480) electronically signed by Pathologist:Mary Last MD, PhD #[id number] DARCI (test code = DARCI) Label says L & L [facility] Rassaos6829-76-49 21:36:07 Test Item Value Reference Range Interpretation Comments Final Report (test No Legionella species code = 8488) isolated Path Review - The results have been Legionella (test code reviewed and = 8480) electronically signed by Pathologist:Mary Last MD, PhD #[id number] DARCI (test code = DARCI) Label says L & L [facility] Wgxthryxz4984-60-10 15:15:29 Test Item Value Reference Range Interpretation Comments TMP Exception Patient A Pos ____ Interp (test transfused with O Pos code = 7544) platelets. This is due to temporary _LISETTE COR DYLAN unavailability of ABO SINGH ,Dictated compatible platelets by: CHICA SINGH,Dictated Date/Time: 10.05.2020 10:1 5 AM CDT Transcribed Date/Time: 10.05.2020 10:1 5 AM CDTElectronical ly Signed By: JENNA SINGH, on 10.05.2020 10:1 5 AM [facility] Fbpqzvtby9666-45-96 15:15:29 Test Item Value Reference Range Interpretation Comments TMP Exception Patient A Pos ____ Interp (test transfused with O Pos code = 7544) platelets. This is due to temporary _JULYRIN COR DYLAN unavailability of ABO SINGH ,Dictated compatible platelets by: CHICA SINGH,Dictated Date/Time: 10.05.2020 10:1 5 AM CDT Transcribed Date/Time: 10.05.2020 10:1 5 AM CDTElectronical ly Signed By: [facility] on 10.05.2020 10:1 5 AM [facility]ellandTMP Tzvysagbr0589-82-78 15:15:29 Test Item Value Reference Range Interpretation Comments TMP Exception Patient A Pos ____ Interp (test transfused with O Pos code = 7544) platelets. This is due to temporary _ COR DYLAN unavailability of ABO SINGH ,Dictated compatible platelets by: CHICA SINGH,Dictated Date/Time: 10.05.2020 10:1 5 AM CDT Transcribed Date/Time: 10.05.2020 10:1 5 AM CDTElectronical ly Signed By: [facility]NA [facility], on 10.05.2020 10:1 5 AM [facility]ellandPrepare platelets:Transfusion Date: 10/04/2020; Transfusion Indications: Actively Bleeding; G707, 1 Nzkwn0710-32-83 21:47:10 Test Item Value Reference Range Interpretation Comments PLT Product Ready Approved Platelet o rder (test code = [place] 25995-5) approved. Order Form 3 when ready for product issue. Expect 2 hours for platelet concentration. Unit Number (test [id number] code = 7002) Product Code (test V8688B93 code = 7003) Unit Expiration [id number] (test code = 675947) Unit Blood Type 5100 (test code = 7004) Product Code Text PLATELETS Pooled IR (test code = 870920) LR HI Number of Units in 4 Pool (test code = 211924) Unit Irradiated IRRADIATED (test code = 506524) Unit Leukoreduced LEUKOREDUCED (test code = 801410) Dispense Status ISSUED (test code = 7001) Unit Blood Type O Positive (test code = 7005) Product Baler Operator .BPAM ___ Location (test code = 114490) [facility]ellandPrepare platelets:Transfusion Date: 10/04/2020; Transfusion Indications: Actively Bleeding; G707, 1 Rifrd1675-36-27 21:47:10 Test Item Value Reference Range Interpretation Comments PLT Product Ready Approved Platelet o rder (test code = [place] been 89338-7) approved. Order Form 3 when ready for product issue. Expect 2 hours for platelet concentration. Unit Number (test [id number] code = 7002) Product Code (test I7231B77 code = 7003) Unit Expiration [id number] (test code = 360658) Unit Blood Type 5100 (test code = 7004) Product Code Text PLATELETS Pooled IR (test code = 564663) LR HI Number of Units in 4 Pool (test code = 627977) Unit Irradiated IRRADIATED (test code = 287432) Unit Leukoreduced LEUKOREDUCED (test code = 675965) Dispense Status ISSUED (test code = 7001) Unit Blood Type O Positive (test code = 7005) Product Baler Operator .BPAM ___ Location (test code = 427506) [facility]andPrepare platelets:Transfusion Date: 10/04/2020; Transfusion Indications: Actively Bleeding; G707, 1 Fesmf5541-35-13 21:47:10 Test Item Value Reference Range Interpretation Comments PLT Product Ready Approved Platelet o rder (test code = [place] been 81504-0) approved. Order Form 3 when ready for product issue. Expect 2 hours for platelet concentration. Unit Number (test [id number] code = 7002) Product Code (test D8954M63 code = 7003) Unit Expiration [id number] (test code = 272659) Unit Blood Type 5100 (test code = 7004) Product Code Text PLATELETS Pooled IR (test code = 448847) LR HI Number of Units in 4 Pool (test code = 895968) Unit Irradiated IRRADIATED (test code = 208949) Unit Leukoreduced LEUKOREDUCED (test code = 410220) Dispense Status ISSUED (test code = 7001) Unit Blood Type O Positive (test code = 7005) Product Baler Operator .BPAM ___ Location (test code = 681351) [facility]ellandPLT Product Ready for Baler Operator 2020-10-04 21:05:07 Test Item Value Reference Range Interpretation Comments PLT Product Ready B2 Blood Bank Product i s ready for for Baler Operator (test pick out hand on October 04, code = 822332) 2020 16:05:02 CDT. [facility]ellandPLT Product Ready for Baler Operator 2020-10-04 21:05:07 Test Item Value Reference Range Interpretation Comments PLT Product Ready B2 Blood Bank Product i s ready for for Baler Operator (test pick out hand on October 04, code = 723924) 2020 16:05:02 CDT. [facility]ellandPLT Product Ready for Baler Operator 2020-10-04 21:05:07 Test Item Value Reference Range Interpretation Comments PLT Product Ready B2 Blood Bank Product i s ready for for Baler Operator (test pick out hand on October 04, code = 390514) 2020 16:05:02 CDT. [facility]ellandFibrinogen2021-07-11 18:27:11 Test Item Value Reference Range Interpretation Comments Fibrinogen (test code = 5610) 193 mg/dL 214-503 L Lab Interpretation (test code = Abnormal 57930-3) [facility]ellandFibrinogen2021-07-11 18:27:11 Test Item Value Reference Range Interpretation Comments Fibrinogen (test code = 5610) 193 mg/dL 214-503 L Lab Interpretation (test code = Abnormal 74209-7) [facility]ellandFibrinogen2021-07-11 18:27:11 Test Item Value Reference Range Interpretation Comments Fibrinogen (test code = 5610) 193 mg/dL 214-503 L Lab Interpretation (test code = Abnormal 35531-0) [facility]ellandCytology Non-Property Accountant Interpretation 2020-10-02 23:36:05 Test Item Value Reference Range Interpretation Comments Gross Description (test k2imxADhHZQphZPDXH code = 5403340890) ReD3tzysKzEKIriWDu N3PuvozeHLpbNW4uXO 3dnIzgsGZrbNZlZT8J XGRlZmYxXHBhcGVydz EyMjQwXHBhcGVyaDE1 XOFhRQ5ohdypTDskEJ riOBBvnwH1UGYgxPCx R5DhITFnWA3iyhapPE K2KLmspV2insLLNlpo Iw6zkLRmpLqjJhDqXj NoYXJzZXQwXGZuaWwg WHExCXu5lG1RHwsbJ1 7nu9Y8Dlb8APZuELCy R4ZkYB7gUXTsgDBxL0 1ZRnndSHN0NLOLTfxq YPYmQB1Kk1wtUKZheD VqNPK8FVlveTMzDMAr NYKfBZv5ANLwAKiryX CqVS8ayPgyEqfdbNnt q9MelXBvRYilJHVhWP YvEJekUXGxUG7JFiKp KHQzKAJ3PXfmAJq7PP q4KF8CObHmPTBcMWh2 VNtcRtFoELo0CVjvLI 4NTLb3Dbx5JcB7IHP3 MLD1BGVhWANtKrVmPO YgQXJpYWwgXFxmcyAx MCBcXGZiIFxcZmwgXF ueE10shNobcR2oLuse fkUpQZT5KSKfgiFUVz xwbGFpblxlcGljTmVz dERvYzEgDQpcbHRycG FyXGxpbjBccmluMCAN ClxsdHJjaFxjZjFcZn MyMCAxIERpZmYgUXVp uykwTWBFOGNfQ2CshU 1qW8dhCRNeGLNpcxSL WuR1NF1aDzGumPChyW WafBziKyszbYY7LSxv JfomxL2tfIEZXOEBEg vFNanpagYwPS7FXUAN TkJZPT70UtN7OcG3OA wxfXtcZmxkcnNsdCBc ExIKiU5hfMldbQWidT XvcG92DWwzQSWjt0Sf J0Sjq4fsqMSfGEoyGe ndoLEvwuZ6AMnIAVPI VLaNCbKuCI5sVLgLUL RCRUdJTnwyfXtcZmxk iaIziTGbZaCLhD4qyV 0aa6pvfDMbPLwuSqja dEWrotM1GOcQRACLDS qDWkDkCK2gSDwOIGBK SjF0Jv12JHThYUYtaG IzLIzxC226CBVtFObs WYq5qpQwZVGgd2XrZ8 SbU5IoLJOmDkZuQERb nOquy4kmwDDzKYazGo zmrTPxoyM3LGjAVHFR FLlYFsDqIF0eILdBP9 YWHxZ8XuP2IgT3YUec fXtcZmxkcnNsdCBcJz PMxP5plXbhnJ9cfUYo C5ikF6CjHSSvSmEcxL JpBC5BVXUvl0VoI8S4 SFCqLErju5uwDVKjWH ywr8DrWMeZREFRHI6I YX6alJK0IWiSWSSMU6 aKoED9KnBevET7V879 XGZsZHJzbHQgXCcxQ3 45W2UzG6tmRE2yT16n Q4OnjYJyqGYuDYL1JD Q3aX7nSK17qginoTga xOilohE9ZBFlbuunhG O9JAHdGTypb5gtXTUu HIskr7ReKWlXPHVPSJ 2GSB8tzKY2YXuHVNJP YQgiHYJ9RMjzaZU6f5 smyBYqj1w2VVaiGVW0 fVxwbGFpblxsdHJjaF xjZjFcZnMyMFxwYXIg WCwDcVFzcTg3VLcfvi MEEMWFXQlOD5ZxGAHI ZBENIDPoHvYQWY7vQw L2KpB9QR30SlbyHnL8 GsWnjKW0WQDGRQMRGM cXX4ZxBWYCEEKFUVAl ZF4VNIaJYWKWZRRKY3 4VRLXCHUMBS3IBU8cC NXUsy4MfwgqKLRqUE8 MBIG4MVCEJBBNJPO8V BrAoOAgWI8DCK2eXEA JfTUVUQURBVEFfQkVH OW3pILh5Bcm4sOR5He E3ZqV7VllkZS7tBYgQ t89kEB34dmQ3zX1bDP VtA9bqjOF2XZmnBEH6 UAz2HnVbQRNucZUkVQ NvbmNlbnRyYXRlZCBi pRCzqQMtL1AsrATbOk QyWUKph08iySIwkG0f aASoUnomID5kJOuEA5 WOS2cDRUYfLHTOHJWV DMJxLI8UXZlHSV0AIZ JfTUVUQURBVEFfQkVH IU4cQIeGOY7ZPRXpHB NBHORXKAJiFV8GUYOJ ZP7ILLPBTFFDG68ZPP EOEVCGN6BYT5qHMGAE ZIESSaZINtHMVZ2JKZ UIGDNHKN1MVyYVHepi bGFpblxlcGljTmVzdE IbMnMesEiauL37VNDs zWGxFRG5UA3bGGBglt tfYOMnIBAgLBE5KKwa lC72jZWiBOVxIBMvtL LokB8PLWQmVJU2JOuy dI54vMVlXS6NWPKiOL V9RMPlaIDsYPE1JO7t fQ0KfQ== Major Classification (test NFMC/benign code = 9839) Diagnosis (test code = 34) i0ayrPYxSAFboQF9HT HtSHRas1ypq5DfvPGa cGFyXGpleHBhbmRcbm 25oHG6uV80CN9zPJXp ViM8ELNqxiR5Frg2DC AvTTByxJVwR317f2mc p9zchvZgwDP8WDToYP OtQ6UlHX0lUFKukTOq U07vsKRdCRD5ZQNxGX EpcXOiJMXgSBG0VUKi oQKxX3gzIIGrMQ1abo dyMTgwMFxtYXJndDE0 ULVzcAGtQ2OsXUBtQD rqERSftfl8EgBpOl3w dGVyeTcyMFxwYXJkXH KeEJxaWWSmEgMxT8Ez GTUvHOs3oioeBIScA1 r6ZZUgtVKjVAsxBrTt NEMdr96gdQ0eaXDzt7 jhphQpYOFuQ7M7GNJr haj1IIVkhILnRTzvKk IwXGxpbjcyMFxjZjAg Vc8zfWBtrOegIZ91YH XtfEzfSNhhHV61tOWr WUFmpIDxYN9rVTSnic LvFKAjNO4iRYEgfCCq IEdNUyBzdGFpbiwgbm DiCKOupfVwUk5bMON3 bxibcFIbk8PrvsCydX FyIEdNUyBzdGFpbiwg hgIvGCMknlZcLo4bAZ MjOTBbr5O0t1Qhl3lq YXIgSXJvbiBzdGFpbi maKFMsIU92jWQicUjj bmVnYXRpdmVccGFyfQ == Comment (test code = 9835) f4gotHWqVTDfwEY7GG GpJGJaw1wce9RfvDHt cGFyXGpleHBhbmRcbm 88uHW3eU21RP3nJHCl UqD0VBMbwfZ3Izt1HW CzNOYdoSPpI877p5aa a6lmdjIxdPL4aAspSN UxqmssEkQ0ZTexCZQr iqazYZr1VOxbQSKzwB B8LJCehISuY6LpICFu MY1kpgu0BRX4SVjhQG UwWhS2QFDjuBXoYROl zIwsUNeam381XDU2Tf TzJIGizzGnlTlbqG0u RoRhREGUk306lu9wri OjinDgJOHhdt5nexyg dGUuIFxwYXJ9 Retained/Biomarker Testing a8ivrCXmHDAhsKP5VT (test code = 9838) KaHOXys0uwn5QryLPp cGFyXGpleHBhbmRcbm 48iPW8uQ51VM4cEEYr LxD2SRXgpxE0Dvr2VP YsXOVblVFpT006w4xk u2rriiVqvXX9uVbpCJ IdkylrMwK4XYzeGWPt taarYCc6YYdkDBZjrZ I5GNRrbTGlF3CoFUId DX1mvne5SPV8PIdbYG CoTmS7RAMntLPvKSOn zNrtDXhet054REF8Sm MaEUCarpTbeDefqR1b ZnMyMCBTUjogMiBTLC AyIFNQIFxwYXJ9 Informational Points (test v6wlzCPgMMJzdQYmPp code = 9836) TwWMOeVZJsa3ttGSVy bGFuZzEwMzNcZnRuYm hokXGsPBMgIpIjv8gh n395kTUrg9jiQZQbGm T5tEYvMZCzkIGfE094 PTNqALati7szz4NoBO ZvgWBll0I5CHFZXPow AODWXEy2e2ggDhRzJh A5wGIrDIsiL3lwwlBy iXQvZHBsIIi9xZ73UP OjbU1uqJAiMCgjpoXs VdE5DLdwGSReRdC0VN NqiUCnUPZlI2afPGZy XGdyZWVuMFxibHVlMC C6zXxjr3D2iZIrbNUf dHtcZjBcZnMyMiBOb3 IkFGd6eShbR4CgWEPq RfX1fPOwRXRnQMizCD XtXDLtamI9tA27DAnn xeM7oFBnw6Csu57ax8 25rN9erYGjANR1LOXl VAGelSBoVQWdNCF9CZ MqpLFtP0uoTGPcHG2k cmdyMTgwMFxtYXJndD X7XFHtlOOnE7QyKEFd INakDDYdkpp1GmQgGn 6crWGwuDniWKcwl8th l7cruKUqBzs1LNWnKy AbDuyiPZnps3Rob8nh VXNezb8gFQS5gSJniB led1N2zCNsHHBinNBb giWdUCWlOiH3QSycIH 2eyv24PDPlEWC6zb5i bGNccGdicmRyaGVhZF jlY1HcEXCct228XNFy V8DyGUIna2E8tiPpLe NfLYUifTA1tfB6YWQk WXc4zTFidsC4xsWqjX BgS8ntuP4yCGJjDT6q elbsn6ngJTamBWemBI NavTO9ikS5NASgbEKi G5BwiI0lQNFaFScoNE Catle8EuYjYo3drIQx eTcyMFxzYmtwYWdlXH BnbmNvbnRccGduZGVj XHBsYWluXHBsYWluXG YwXGZzMjRccWxccGxh dI8aPdRiCzMnIMagXG 8iVOEhL8zjaWPtNYTn FZNwO4xoIzOuzT6elT pjGFxzxzJ0VRtiV71u ENO0SJU7htCfQCNxed PrLJPkIYLdWG6ghJCk HTJkQOMdGJ4yXMX0SI xvcGVkIGFuZCBwZXJm l7TuHZ3rVHYzxBCnRA F0ZJDlx4EyL0MrRWN8 XGBtuP3cZDKbpWYWFW BNRCBBbmRlcnNvbiBQ ULWfc5apT3qtVN4sCE onIj6wFTBfvbfqSJVo aWNpbmUuIFRoZXNlIH Sky6FmLRmrkbSpou96 GTJnML4kd2MvF5nsoE XtjNi0LRWtSZGjUSNj c7LzAODqrb45ODQqOc fczWevBAPvOr6fVe9n HTAvgbBcLWX8LzYTHD 3bdovzzLNsvQlrjd2j XHBsYWluXGYyXGZzMj JcbGFuZzEwMzNcaGlj aFxmMlxkYmNoXGYyXG cyJ2peNtNrHyPnPido YXJ9 [facility] [employer] Interpretation 2020-10-02 23:36:05 Test Item Value Reference Range Interpretation Comments Gross Description (test x3unuYBbQJTioJYFHB code = [id number]) WlU6unprVlJRBteGAc V8CpgcxaSIhoOM7gRO 9vvBjasPPzsIEaNX7B XGRlZmYxXHBhcGVydz EyMjQwXHBhcGVyaDE1 BBWvTS6nhgkvIYnqWJ diFSUzmcG6WLBcyJPs C5VbAUJtJO1xymmwUE I8IIgvzI2lzvURAlgv Ko7ymKNtnPxgTmBxXl NoYXJzZXQwXGZuaWwg AYMbNUk4iE0RSdsjW8 3bi7N1Rua6OPKbNCCr N4NhHX7cPFKpfTPzN1 6WCzeeIRJ4CSTPYewp LUKkCT1Ox4iqWEGghW RnKQH8JCrzxJGlSWKm KHKyJNc0ALOsRAhbeF AeVY6ndBjeKtntjOdv z7MgoUVzPNboSIBlBR IoCYyfTJOvHM8EYfIl EBHqHZW5DAqpQVl3KJ v4GR3RUwBmUJAsTIa6 YVqkRdFnHTn5RZmcUU 7ZSVg8Mth9TdS3UAS8 CKK8SZLaCEOrJmHyIY YgQXJpYWwgXFxmcyAx MCBcXGZiIFxcZmwgXF wfS47ilDgfqB4yLhuk qgOoDBQ2TDCcerHUWt xwbGFpblxlcGljTmVz dERvYzEgDQpcbHRycG FyXGxpbjBccmluMCAN ClxsdHJjaFxjZjFcZn MyMCAxIERpZmYgUXVp syhrOROMEJJoC9ZbdQ 0tG1iaHJNqPDGsicMF UkY9ZO2iTxRcjUUmkV UffDuvEawncMO9XEja KjewpZ9tjMGYKUSORn sCVdankyHbPJ9UZATA QtTRTI73NfH3AhY6KX wxfXtcZmxkcnNsdCBc UiKWxW2ltMjnyOGmcM UasU60DFqyLOMwe4Mz G8Hnh3fatTFxVRmfIi otdJZjydX1PGqYTOZQ FLmPFyMvKN4qWUgYMN RCRUdJTnwyfXtcZmxk agVonMHeFtRTmF2bvZ 0lz8ffnEArZAhkUguw gVXozmZ3QFbVWXJKWQ hFCyCnSU3eNYuAILQN UnY5Rk10BZAhNIIowJ HeGBcsJ536PDMcWKmb OHc5ybRkJQKqy4WiS7 BbN5AyQQQuEgRpDGXe iLxtz8wjwVKbNXiqUl oweNHuqzN7NUkDUMPK LFrGJwHqVP6nEZhRQ5 DZBaX9LlA4ZcO7ZUkq fXtcZmxkcnNsdCBcJz WSwS7dzRjclY8elENa X2ppA6ScRFSgOwQzwL FrDI0DWOSbq6GhN1N8 HTRuIPuye6cpEDZpDT ogm7VvDCcKMFYWDW8Y BD0bpGI5VZyHTLEWC8 jIjIV3XhBzjPP3A387 XGZsZHJzbHQgXCcxQ3 20Q6WiW3soUB6eP78m E8KogHAkaXCdZRS1QN M3nS1sYG15frjjiIek iAvkvjX7VAUkqefjsB L8DULlNRwzz0ejZHIv RSrny3CxQJwFRVYUHB 0OFO4rsYB8RMjRUMGZ JMnzIRT0BIivkRE9c8 mroUQje4l7YUsoCGZ5 fVxwbGFpblxsdHJjaF xjZjFcZnMyMFxwYXIg XAeNuGHuzNt7LJppfy DKQQHTIBeYZ2DbZGQO AYYLGSBdQyRAVK5mKu N2RvE2WR92SqbaIoM8 ElDzcOF2NSVOYRHRDU lML5PbAJFJJGYJKMSn NB2VXErHBEHQMSNXS5 7TBEIGMABMP8OLE9xE JDDbw8YsbnxWUHoCM3 GNNV4HNNIVQHCCYP6P KaApTUvWK5ZFR6tAZZ JfTUVUQURBVEFfQkVH KD2cLGr7Qxv7rWZ8Pm B1PmR6VxxpKO2uZNtX m99mBX49jdU4jL4kNR SeI1ekzPL9LNtuBOY0 VQf2LwNcQLKarKXhJL NvbmNlbnRyYXRlZCBi sIYbdRMdF9TrgKGhVq MeEBHyq04koOOsrX5h qTAwJbakXJ5gQIyFX1 MFV5wXVTUxVSEFOTNW GSXwIT5JYKzSLI8DSG JfTUVUQURBVEFfQkVH QX9xLBxJBP9MTZNiVA HWRTNOBCXlIJ9NSUAA YM1DYMYZGABVK38EUR DOXFUWQ8HUN4vRBSLM BLVGRuPOWtAXOW5ZWR KBLQBSZD3EZfYXHbkn bGFpblxlcGljTmVzdE FqJeWnvOomiB35LOKv fJDbEPI0NE6kZGFdvk htROJbSNNoNQC4PRik aZ70eNNcCIBzKZVngK RxeT6JSADqRNM5JXun uY82uCItVD5CEFMqDN Z8TPCmuFYbHYN1YE6z fQ0KfQ== Major Classification (test NFMC/benign code = 9839) Diagnosis (test code = 34) b7folPVnPJXtuZN2EH GjKFWgi3tbo1UgbGXj cGFyXGpleHBhbmRcbm 06rWP9xD26VN2pTYXv FcY2ODEwccQ0Bdz1EW KyDUQarLWmU331b6rn j1zpjoWdnBF2ARCpQE VzT6GsZA5dWASubOTz P21feJZgIFQ0TVChKR DbgHQtXIVkOES8SEEh xQZtY1laMWMlTK0cuw dyMTgwMFxtYXJndDE0 ZGGloHTwC3NsVLLsHT ddLJApjgw7FhRdRj6i dGVyeTcyMFxwYXJkXH IzAMgxRTGuQxMpV1Fw VJMsLLy6mgrqDEBrM1 m4TTInmNEeBTbeNtXo DXOcx60phD7ssLIfu4 bnqcIiGZLnA2P3ECTo whh0BDXvqETsHKgzNr IwXGxpbjcyMFxjZjAg Rk6rpANgcFwuMJ97AX FbaFimOZfuFX05gBEz KRTmkLKuZJ9oFYGnsh FpMIQxXU9eAIQlmPYo IEdNUyBzdGFpbiwgbm AeJWVoycAhJp5mSYL0 wvlnyGHzc1QrsjFzzC FyIEdNUyBzdGFpbiwg zhWtHJQqvaAdFg2oZZ TtWPVbg4Z6e0Ggs2vx YXIgSXJvbiBzdGFpbi suIHHyIG73hVZwfHvi bmVnYXRpdmVccGFyfQ == Comment (test code = 9835) j6uvrOWkKXLevCS6ZM BgLYMkf3xpd0XapRIr cGFyXGpleHBhbmRcbm 80aTL2zJ87EM0hELUk ImB7GQGofzL1Rhf0YG QhHKLuxZArO383n2qb r1svllJlqIW5tDaqZS GzorupGnR1HSaxQEVo ytnaCVd7BCwyAKFpwW V7RRFgjJEkW3PrJJNd QF0lmdw7DZD4YRhzST UtZkO3IFFvkBHtQAPc aRsiSNrtg441LDV8Pp ObALSprfNxaNbvnK9y PgRhAEVKs475ut0ufy KzpxKdALTown8uvfox dGUuIFxwYXJ9 Retained/Biomarker Testing t6qorYUaEDCaxQQ6CH (test code = 9838) FjRTMys3nsz9LrbPCj cGFyXGpleHBhbmRcbm 10nDV6hN78ZK4sBFWi ZdK5SWKgzzG5Yhr1CJ MsHUHgtEEaR948y0mz p9ukooXeuHV0gXlrJH TdxlrdPeQ6LQszXJNl vlwdBUd6GJukQDEbgU W1NEOvpWRxD8KyTHHg YT2jfxo5PYH3BKtaSS XdIbY4BNTcjSWoOJNa mNjqSIfrl921HAL7Zm GmCEOhqqMdhFxuoU8j ZnMyMCBTUjogMiBTLC AyIFNQIFxwYXJ9 Informational Points (test b7ubbUGpTZGuzXYjOz code = 9836) FwPKJdUDCwv4ltUDEl bGFuZzEwMzNcZnRuYm ghaWSsNNVaRyEfe1af u552eDWgj7dnWBNyKa R5vUOcOIEubFFgO667 NBLuHGohd2gud2OjGB VktNDwh7I0ULWJDAab IXVXMAy0g1geNjWmHk P8oUIyKEpeB4dlrrNh fLPvSEYoSAm7pQ50FC DruL3ooMOcMDkcewBn IbJ5JJofJSIjKyD8NH WcbQFaQGBtJ1ifWKOi XGdyZWVuMFxibHVlMC A9cQxrn8R7rUTlsSRi dHtcZjBcZnMyMiBOb3 CeLVl7cCqxR5BbARDu XlV3fNQzYRGbCJspKG TkRDDgncR9fA76VZag xzY1sKKas5Ubd11kj7 58uG1qbEBxUBZ0RRPc GVSyhTQcVBLjTOI0DY UzsNFeM0olNAGsYX9x cmdyMTgwMFxtYXJndD G0VZIfqRJgE2FhRQUp ESosKGBvdge4YkAwDd 8npZTjaHzoNJxom7ch m9vwtVUoCoz9RYZwSx QvUfneFGrgy5Ryg2pi WAVchs4lJRU7aVFyvT kat0G5nCIsILFnyPJr epStWMUlNiB7IFdpFQ 6dgz30RISgMJO2mo9v bGNccGdicmRyaGVhZF jsZ4IvDYNfh263QWOm Y9EmEKPho1U0bvAlPs ItWTGxgQT5pkM3GEFq SWg6zLGwqxG1etZfaZ DbY5jduL2wTHOdOG4f klfks0jiOKxhBFjaRX QerNT5hvN9JZHnfQYv F0ZcsJ2mOMMeELxiKR Pdocx0StFrEl7lsMWs eTcyMFxzYmtwYWdlXH BnbmNvbnRccGduZGVj XHBsYWluXHBsYWluXG YwXGZzMjRccWxccGxh bV1mNkUmOrWnRSsuMC 7yDOBlF7vcxXJkUZQo LGBbP0rdRkOaaF8wiH xsCBujpzY9XRfcM82s AJK4XFY8leIyBJGeef DbQVEaXJAfXW3kcDAm ZNZyUNRzYK0kWCB4ZM xvcGVkIGFuZCBwZXJm p6FoCM2eTLVppVHqPP S0OINxc5QrM8XfWYS0 ALKrsI7eIWCaiCOAMK BNRCBBbmRlcnNvbiBQ VMLjm9hfP7piSY1sZB qsXt8mOMQxjisiDBTw aWNpbmUuIFRoZXNlIH Hge1YxGWunnyUjjk00 PQBeIH1qa6OnM3kosE XddUv1QEJfSPGySZGl x1NqXHBght26BDIaCo zuwVviCJUePb9iBg9n ALGbgeGwBUE0EbJWWB 7vvmprtWLwrZpixt3s XHBsYWluXGYyXGZzMj JcbGFuZzEwMzNcaGlj aFxmMlxkYmNoXGYyXG arN3zeXiEtZfQoUbnc YXJ9 [facility] [employer] Non[employer]Property [employer] Interpretation 2020-10-02 23:36:05 Test Item Value Reference Range Interpretation Comments Gross Description (test v2jpqLLqYIGuxITTBF code = [id number]) SxV0ssszXlEFPbcRLp B0GcrywjAKusGI9aPY 4haNkpeCSxyXAsLC2X XGRlZmYxXHBhcGVydz EyMjQwXHBhcGVyaDE1 JXFvHP2puodnIJxiUA yeXIXbxdM6ITIgxANw K9OpQISjLG1mpyzgIZ D7QHmheP5mttAWGfyg Xd3nqPRkdIzoMmCtMj NoYXJzZXQwXGZuaWwg GVFgJPo3qB4CZeosU7 7ss6K4Szq4HTGxDFTm H0UnFW2lJUVceXTlO6 3KJleyWQT9IQGSQagl NINhZJ7Us0fhVJMclZ KaRYM6SUsclBQaQOZq HDAzJLm6XNGyWBsvvG XvPR8smJepQnegqLnp h6PpwBOhBKpfRKRaLB GlQVxrDOOhDO8MWuMm WGJzJKR9VHwoZJx6LN m4BH1EMnJyUCSuQFz2 CIolZfGhOIn9JKhyRL 5JHEs1Lpn6UnP6DNJ3 PFV3CUYlHHChSfKwZZ YgQXJpYWwgXFxmcyAx MCBcXGZiIFxcZmwgXF haX79bdMlhqE3hFqvk imMlWDM5TPErodCDVm xwbGFpblxlcGljTmVz dERvYzEgDQpcbHRycG FyXGxpbjBccmluMCAN ClxsdHJjaFxjZjFcZn MyMCAxIERpZmYgUXVp duytYNADRMAlY2WgnP 9xL0hgOEQzOZKdqsJC DhK4BC3qJtJcmRNmdY MvbNhxYfbssYV8CMmz QxvuwY2xcXCSRUGOIr cPRlpwgmHqCD6IIYAN TmJSPN14HdI6IeE5EB wxfXtcZmxkcnNsdCBc LgGTvF6ueByjdUJxlE KnlZ12CRumAFTie0Fg K5Cbt2cljSGjXXtnWg mgaJWsigZ2TRuELEBJ RTnIUsXgBO6eXZpEQM RCRUdJTnwyfXtcZmxk iyAuuBVeHxEOxQ0qxO 3ya1kbcMHuUUvbLpdm hSOrvqR0BQfRFDRKJN qXEsJgSY1mKEmLIKAY LpR7Xr66JRHjTZAllW RmWNutP054WRHpYTqp SHi8cpJqVCLlv3UyF7 RhB2YhNSEvQgSiJTBt cZlta5tlrVQvZOzhDo pqsMGhapO9XQbLVWOI OYdWGgTcUJ3fAZqUC1 MMOyM8XjO4NaQ1PPsd fXtcZmxkcnNsdCBcJz LOwF0hrNcilQ9odRWu N3uuX9UhJLUdCfZtqW UjQD6HYJStu8YjP3X1 JHDdONycg8nxZRUeWM zxv0RoXCuUSLXVFA3J FE5mlNC2KSfOWQKSG8 zNiOA0ZzAdbMQ4L848 XGZsZHJzbHQgXCcxQ3 84Z2QlK1hnNA6vA74b Z4DczZZhmEEhFVS5OY J3jL9qYM21yioesLej bHmjgbW2ODMoayoyuA H4VSIhFChin6pkEWFm KMvte1TbNZjUFFVIGK 0HZD1zlMO6IGyOIPBJ UTbhBDT7YHqkzPD5c6 ylkJFhg0f1QOdoYRH8 fVxwbGFpblxsdHJjaF xjZjFcZnMyMFxwYXIg KEjAoRCvxAe9RJbccp MYCAYPKNeQO9UzVRNM EYHDNCVtHmICFS6xRf P9GkZ3DA45VuccRcJ5 KnEhgBO0FNYCLOTQDR rSD8OsFLOFDLZQPQRk BV9CDRoWVGOMSFMEI2 1XBGYSWHAHP8KJQ1yW WKXyr1VlzgcITOfKX4 FYII3LSLIYNOAVDY2C DyFcOTyJP4FQT2iWLR JfTUVUQURBVEFfQkVH FW7gDQk1Zqf3tJY1Ot Q3VwS4IvztVU0tRGxF r40lWK54djE3lW7wRT FuF6fzlUW3MPtrGNP9 VHk4YtWbOMBaqBLtRG NvbmNlbnRyYXRlZCBi jONqsGOkQ0DfwSMdBr ExYXUxf20ybRTeoF5m jWJySzkyVG5oQPkEP2 SLX3qRCZVzHFZTPJJQ HLIjAG0HYKuYLU0UVM JfTUVUQURBVEFfQkVH WV2yWBgAGM4SLSOeVT ESARWKITDwOG1VCYSZ RK8LROQULTTQT49SVJ CFABJHB0DYC7lSIDGB WJGMRdGJJkQYUO8OBD CRYEMVEO1BLwLSJvxv bGFpblxlcGljTmVzdE LlZzYboWhimF47RIUc eUQhTNV1NE1fZEItmv qjDTNjFRPoTAI4QZqr lJ46nPUtCPCxMUXzpB PwlY2LDSSdVKM8LNkd nP76fLQiKM9BOSZcHO E7JYHryVNaTWY8OI0a fQ0KfQ== Major Classification (test NFMC/benign code = 9839) Diagnosis (test code = 34) e0sxkWArKEYszJH5CO OnBOTpk3lsh4RvlAFh cGFyXGpleHBhbmRcbm 05aXR5gQ29ZD9vFMBm NaE8XGDeeeY5Itv8HY HtJTQllDOcB045q0fs t8pimbRqcJQ5LZEbTD CcP9FuRU8xVKUzsZIw I40hhPUdKZA5FTLmVX XpmHOnPWIgLZQ3NPCj kXGkP2ugCBRkMU0qzz dyMTgwMFxtYXJndDE0 YMCmuEIoG2QrYFPyIU ewEJMpvvo2YgNpMe0r dGVyeTcyMFxwYXJkXH VdTYpzNDGnLsDaD2Nl GXIvMBu7ofovHIKoL4 b3DJEkkBXjSRqlCaPc IRXjp32dlH6bnISqr5 edywZrTXReB3P3SRZq gps6XYVphIBeNGigTm IwXGxpbjcyMFxjZjAg Kg4nnUCqtLozOR60AL HraMcmAPwxFR29tVJc AFDdwIVyOX7qCCOpgo ZfQOUjWM0sTCOgqEFf IEdNUyBzdGFpbiwgbm MdFPWkmzIbEn2rTDJ8 hcwynIOum3BmidLvpL FyIEdNUyBzdGFpbiwg abZbTMTusiDiFt2aNA RnRDZjo2G9q8Vfb3wk YXIgSXJvbiBzdGFpbi mtOPAoLR64pUDfgEvf bmVnYXRpdmVccGFyfQ == Comment (test code = 9835) v9qkyPWrIFBnjNC1ZN YvIPQfx7zkv1PzuMOz cGFyXGpleHBhbmRcbm 05oGA2lJ25YS0pNAGb YxZ9SIBnplF1Jzv6HH AwZLIumMEaV552p8xp s3ssfmMdjOH8nGdlAL NmdhekLvO6ICikXQGz zosuJMn4MTqmGDHziS T6OYSstPOhP1CqHNXw XH5uihv3VUK4GUxfBL EcDwZ7JRXhvDYsIJHm mPxnUCgcc050UQD4Qp MqEHBgmaVmrLdrqD7q JjWdMEROz785wn5phv ArllJhALXutl3jurkg dGUuIFxwYXJ9 Retained/Biomarker Testing h4xovDLrVGPpuIA9JF (test code = 9838) ClKYGsl8ond3FoeHHw cGFyXGpleHBhbmRcbm 74vNB8jI03OK9yLFVx YeS6IYElgaM8Arh4QH EoNBCxcDVqU681p8lc a8meocZmjNT1cScxEO JelrekBdC2QEjdUKEu yfqzNIk7CWadQBTppJ O1QPMleQDiJ4IwYJRd UE1sjms5HZX0ZDbxDK VtYjN8GHEmhEWsNKSo dWrqXWufx229ROZ4Cj QoVUYhgiGgaEnnlF4h ZnMyMCBTUjogMiBTLC AyIFNQIFxwYXJ9 Informational Points (test q2ceaKUoXUKhfXLwCn code = 9836) IeXFKvGKPqt3xrRZLc bGFuZzEwMzNcZnRuYm lejMYaEFPeZcHde0en m799eOQpb1hoQQImWp N5cBKeTKVdkTRpE673 YSLwPQzur6ucw6KrVO AddZUwq7G3JXISQZgu ADDGKMh2x6ivChTzLh L0gEWbCUdfX6qxqhIu mGYbYLRyDWg1hB76TD JfcK4kmPVsBZbxzpMz XtK3BFskHPNpFfR7CK EhnYWvXBGhM8giNCZy XGdyZWVuMFxibHVlMC L2aOzrh0F9yYAhxLEx dHtcZjBcZnMyMiBOb3 TyLSh3uJrbS6TmNCDa KoO2xORkZTZmZJjjVR BdONSpwoL5kD11XSlu boC9wQQpr1Rwh85ds0 46yS1gjKCuIZA7ZPCg LPVrcWBnOXKySSR1AN MpoKMlQ3gyDHJhZI4a cmdyMTgwMFxtYXJndD V1EBJtrDXmY5ItJRDr ZMhhKQIqixj4JvPuFz 7nuEIiiYlsCItui4qh f0uvyUFdJop5STVlEy KhGmvsQUdnq4Jvs5xj DZUpqu4qEJR5eJFqlU bsh4L8pERaSPNfoTQz urPaRLLxKlY2BBhcVK 1vnd37MVAdBEK0ss3l bGNccGdicmRyaGVhZF ioS6ZyHGWkz040JITc S2ArCIDqq7F8qnWwAn AzKZDskIU2udZ3HZFt MNs7dSIyvgE7sgUonZ CiK6eujL6fNWKnLM1x jbsel7svBCycTCuaXL GitSJ0zsL9BKWalTRg F9PbdY7iFGEtPSzsPA Geefl2TuQpPb0baDYy eTcyMFxzYmtwYWdlXH BnbmNvbnRccGduZGVj XHBsYWluXHBsYWluXG YwXGZzMjRccWxccGxh dJ2uSgXhZcSwUAzgWZ 9tHAPnH7fypZYuEOHr SKXfH8zmKsNgmF2axV yaPLczlbT6EAlpO94r JJE7JYH1qjEvBQBkkh CiCISxJROwVU3ngPEr MNXuLPCoBT8uNLB6HC xvcGVkIGFuZCBwZXJm d3IfCU7bZUOrkKJqFN V3VKKng7EuL9LkNEJ9 YPZsoC6bWFLnzQWTJT BNRCBBbmRlcnNvbiBQ AXRru9jdI9mtVU7mCS eaMh3cKPPyiettFMSf aWNpbmUuIFRoZXNlIH Wdg4OmAOgywaYplw61 RGTsWR1dd8YlE3jgdD AdxWw3ITCaIGJaDVSh s3ImMSWfej63XOErLo rfnKnsOVBjNh2kBp6s YIJuboAkGMQ7PrGTCN 8ymvdyoWYcfMqwyu6h XHBsYWluXGYyXGZzMj JcbGFuZzEwMzNcaGlj aFxmMlxkYmNoXGYyXG ruO6thIbLwFpVpOdjc YXJ9 [facility] FanwoodPneumocystis jiroveci Quant, BAL 2020-10-02 14:08:45 Test Item Value Reference Interpretation Comments Range P. jiroveci Not Detected Not Detected Assay Range: 8 4 copies/mL to BAL-[facility] copies/mL 1.00E+08 copies /mLThe limit of (test code = quantitation (L OQ) is 84 6592) copies/mL. Pneumocystisjir oveci DNA detected below the LOQ will be reported as Detected:<84cop ies/mL.This test was develo ped and its performance characteristics determined by [employer]. It has not been cleared or approvedby the [place] Food and D rug Administration. Results should be used inconju nction with clinical findin gs, and should not form the so lebasis for a diagnosis or tr eatment decision. Perfor med At:[employer] [address] [place] [address]Dvabsoudsz Director: Carroll Bill Ph.D ., BCLRobert (ABB)CLIA#: [id number]: DARCI (test From [facility] and code = DARCI) [facility], BAL 2020-10-02 14:08:45 Test Item Value Reference Interpretation Comments Range P. jiroveci Not Detected Not Detected Assay Range: 8 4 copies/mL to BAL-Virac[facility] copies/mL 1.00E+08 copies /mLThe limit of (test code = quantitation (L OQ) is 84 6592) copies/mL. Pneumocystisjir oveci DNA detected below the LOQ will be reported as Detected:<84cop ies/mL.This test was develo ped and its performance characteristics determined by [employer] [place]. It has not been cleared or approvedby the [place] Food and D rug Administration. Results should be used inconju nction with clinical findin gs, and should not form the so lebasis for a diagnosis or tr eatment decision. Perfor med At:[employer] [place] [address]Wweqlbpspq Director: Carroll Bill Ph.D ., BCLD (ABB)CLIA#: [id number]: DARCI (test From [facility] and code = DARCI) [facility]Pneum[facility] jiroveci Quant, BAL 2020-10-02 14:08:45 Test Item Value Reference Interpretation Comments Range P. jiroveci Not Detected Not Detected Assay Range: 8 4 copies/mL to BAL-Virac[facility] copies/mL 1.00E+08 copies /mLThe limit of (test code = quantitation (L OQ) is 84 6592) copies/mL. Pneumocystisjir oveci DNA detected below the LOQ will be reported as Detected:<84cop ies/mL.This test was develo ped and its performance characteristics determined by [employer] [place]. It has not been cleared or approvedby the U.S. Food and D rug Administration. Results should be used inconju nction with clinical findin gs, and should not form the so lebasis for a diagnosis or tr eatment decision. Perfor med At:[address] [place] [address]Mabvquizzw Director: Carroll Bill Ph.D ., BCLD (ABB)CLIA#: [id number]: DARCI (test From [facility] and code = DARCI) [facility] 22:30:33 Test Item Value Reference Range Interpretation Comments T4 Free (test code = 7502) 1.11 ng/dL 0.93-1.70 [facility] [id number] 22:30:33 Test Item Value Reference Range Interpretation Comments T4 Free (test code = 7502) 1.11 ng/dL 0.93-1.70 [facility] Test Item Value Reference Range Interpretation Comments T4 Free (test code = 7502) 1.11 ng/dL 0.93-1.70 [facility]26 Test Item Value Reference Range Interpretation Comments TSH (test code = 1.11 See_Comment [Automated message] The 7578) system which ge nerated this result transmit jigar reference range : 0.27 - 4.20 mcunit/mL. The reference range was not used to interpr et this result as sonido l/abnormal. [facility] 22:30:26 Test Item Value Reference Range Interpretation Comments TSH (test code = 1.11 See_Comment [Automated message] The 5645) system which ge nerated this result transmit jigar reference range : 0.27 - 4.20 mcunit/mL. The reference range was not used to interpr et this result as sonido l/abnormal. [facility] 22:30:26 Test Item Value Reference Range Interpretation Comments TSH (test code = 1.11 See_Comment [Automated message] The 2023) system which ge nerated this result transmit jigar reference range : 0.27 - 4.20 mcunit/mL. The reference range was not used to interpr et this result as soindo l/abnormal. [facility] 05:53:04 Test Item Value Reference Range Interpretation Comments pH Odm (test code = 7.27 7.32-7.43 L Results are 2746-6) corrected for a body temp of 37C pCO2 Dom (test code = 43.9 See_Comment [Auto mated message] 2020-06) The system [employer] generated this result transmit jigar reference range : 41.0 - 51.0 mmH g. The reference r louis was not used to interpret this result as normal/abnormal . pO2 Dom (test code = 44 mmHg 2705-2) HCO3 Dom (test code = 20 mmol/L 21-28 L 86649-9) Base Excess Dom (test -6 mmol/L -2-3 L code = 1927-3) O2 Sat Dom (test code = 67 % 6513) Lab Interpretation (test Abnormal code = 49391-3) [facility] 05:53:04 Test Item Value Reference Range Interpretation Comments pH Dom (test code = 7.27 7.32-7.43 L Results are 2746-6) corrected for a body temp of 37C pCO2 Dom (test code = 43.9 See_Comment [Auto mated message] 2020-06) The system [employer] generated this result transmit jigar reference range : 41.0 - 51.0 mmH g. The reference r louis was not used to interpret this result as normal/abnormal . pO2 Dom (test code = 44 mmHg 2705-2) HCO3 Dom (test code = 20 mmol/L 21-28 L 87400-6) Base Excess Dom (test -6 mmol/L -2-3 L code = 1927-3) O2 Sat Dom (test code = 67 % 6513) Lab Interpretation (test Abnormal code = 71697-4) [facility] 05:53:04 Test Item Value Reference Range Interpretation Comments pH Dom (test code = 7.27 7.32-7.43 L Results are 2746-6) corrected for a body temp of 37C pCO2 Dom (test code = 43.9 See_Comment [Auto mated message] 2020-06) The system [employer] generated this result transmit jigar reference range : 41.0 - 51.0 mmH g. The reference r louis was not used to interpret this result as normal/abnormal . pO2 Dom (test code = 44 mmHg 2705-2) HCO3 Dom (test code = 20 mmol/L 21-28 L 53100-6) Base Excess Dom (test -6 mmol/L -2-3 L code = 1927-3) O2 Sat Dom (test code = 67 % 6513) Lab Interpretation (test Abnormal code = 20820-6) [facility]:Transfusion Date: 09/30/2020; Transfusion Indications: Prothrombin time gre ater than 18 seconds; G701, 2 [id number] 21:03:55 Test Item Value Reference Range Interpretation Comments FFP Product Ready 2 Fresh Froz en Plasma (test code = 56351-8) Availa ble - Order Form 03 when re will for product iss ue. Unit Number (test [id number] code = 7002) Product Code (test T7079A79 code = 7003) Unit Expiration (test [id number] code = 508841) Unit Blood Type (test 6200 code = 7004) Product Code Text PLASMA IR CPD (test code = 738653) Unit Irradiated (test IRRADIATED code = 596379) Dispense Status (test ISSUED code = 7001) Unit Blood Type (test A Positive code = 7005) Product Baler Operator .BPAM Location (test code = 128535) [facility]:Transfusion Date: 09/30/2020; Transfusion Indications: Prothrombin time gre ater than 18 seconds; G701, 2 [id number] 21:03:55 Test Item Value Reference Range Interpretation Comments FFP Product Ready 2 Fresh Froz en Plasma (test code = 82047-5) Availa ble - Order Form 03 when re will for product iss ue. Unit Number (test [id number] code = 7002) Product Code (test D6928P21 code = 7003) Unit Expiration (test [id number] code = 749535) Unit Blood Type (test 6200 code = 7004) Product Code Text PLASMA IR CPD (test code = 884120) Unit Irradiated (test IRRADIATED code = 861475) Dispense Status (test ISSUED code = 7001) Unit Blood Type (test A Positive code = 7005) Product Baler Operator .BPAM Location (test code = 10010503) [facility]:Transfusion Date: 09/30/2020; Transfusion Indications: Prothrombin time gre ater than 18 seconds; G701, 2 [id number] 21:03:55 Test Item Value Reference Range Interpretation Comments FFP Product Ready 2 Fresh Froz en Plasma (test code = 56997-2) Availa ble - Order Form 03 when re will for product iss ue. Unit Number (test [id number] code = 7002) Product Code (test O0290I89 code = 7003) Unit Expiration (test [id number] code = 930443) Unit Blood Type (test 6200 code = 7004) Product Code Text PLASMA IR CPD (test code = 056327) Unit Irradiated (test IRRADIATED code = 682985) Dispense Status (test ISSUED code = 7001) Unit Blood Type (test A Positive code = 7005) Product Baler Operator .BPAM Location (test code = 10010503) [facility]FF[facility] Product Ready for Baler Operator 2020-09-30 16:12:10 Test Item Value Reference Range Interpretation Comments FFP Product Ready B2 Blood Bank Product i s ready for for Baler Operator (test pick out hand on September 30, code = 185882) 2020 11:12:03 CDT. [facility] Product Ready for Baler Operator 2020-09-30 16:12:10 Test Item Value Reference Range Interpretation Comments FFP Product Ready B2 Blood Bank Product i s ready for for Baler Operator (test pick out hand on September 30, code = 469228) 2020 11:12:03 CDT. [facility] Product Ready for Baler Operator 2020-09-30 16:12:10 Test Item Value Reference Range Interpretation Comments FFP Product Ready B2 Blood Bank Product i s ready for for Baler Operator (test pick out hand on September 30, code = 459882) 2020 11:12:03 CDT. [facility] [id number] 09:19:04 Test Item Value Reference Range Interpretation Comments CK (test code = 5206) 138 U/L 39-308 CK MB (test code = <2.0 See_Comment [Automat ed message] 5209) The system [employer] generated this result transmitted ref erence range: <=10.4 n g/mL. The reference r [place]is was not used to interpret this result as normal/abnor mal. Troponin T (test code = 123 ng/L See_Comment A < 19 ng/L Suggest 9384) retest at 3 to 6 hours later to rule o ut myocardial infa rction >= 19 to <=52 n g/L Possible myocar dial injury. Suggest retest at 3 hours. - a change of < 20 ng/L, retest at 6 jessi rs - a change of >= 20 ng/L, suggestive of myocardial infa rction > 52 ng/L Sugg estive of myocardial infarction Crit ical value will be r eported when cTnT is > 52 ng/L and only report ed for the first in a series. Hemolyzed speci mens with Hemolysis Index >100 (100 mg/dl or moderate hemoly sis) may cause interferences a nd falsely low res ults. [Automated mess age] The system [employer] generated this result transmitted ref erence range: <=18. Th e reference range was not used to int erpret this result as normal/abnormal . Lab Interpretation Abnormal (test code = 30054-9) [facility] [id number] 09:19:04 Test Item Value Reference Range Interpretation Comments CK (test code = 5206) 138 U/L 39-308 CK MB (test code = <2.0 See_Comment [Automat ed message] 5209) The system [employer] generated this result transmitted ref erence range: <=10.4 n g/mL. The reference r louis was not used to interpret this result as normal/abnor mal. Troponin T (test code = 123 ng/L See_Comment A < 19 ng/L Suggest 9384) retest at 3 to 6 hours later to rule o ut myocardial infa rction >= 19 to <=52 n g/L Possible myocar dial injury. Suggest retest at 3 hours. - a change of < 20 ng/L, r etest at 6 hours - a change of >= 20 ng/L, suggestive of myocardial infa rction > 52 ng/L Sugge stive of myocardial infarction Crit ical value will be r eported when cTnT is > 52 ng/L and only report ed for the first in a series. Hemolyzed speci mens with Hemolysis Index >100 (100 mg/dl or moderate hemoly sis) may cause interferences a nd falsely low res ults. [Automated mess age] The system [employer] generated this result transmitted ref erence range: <=18. Th e reference range was not used to int erpret this result as normal/abnormal . Lab Interpretation Abnormal (test code = 31901-3) [facility] [id number] 09:19:04 Test Item Value Reference Range Interpretation Comments CK (test code = 5206) 138 U/L 39-308 CK MB (test code = <2.0 See_Comment [Automat ed message] 5209) The system [employer] generated this result transmitted ref erence range: <=10.4 n g/mL. The reference r louis was not used to interpret this result as normal/abnor mal. Troponin T (test code = 123 ng/L See_Comment A < 19 ng/L Suggest 9384) retest at 3 to 6 hours later to rule o ut myocardial infa rction >= 19 to <=52 n g/L Possible myocar dial injury. Suggest retest at 3 hours. - a change of < 20 ng/L, r etest at 6 hours - a change of >= 20 ng/L, suggestive of myocardial infa rction > 52 ng/L Sugge stive of myocardial infarction Crit ical value will be r eported when cTnT is > 52 ng/L and only report ed for the first in a series. Hemolyzed speci mens with Hemolysis Index >100 (100 mg/dl or moderate hemoly sis) may cause interferences a nd falsely low res ults. [Automated mess age] The system [employer] generated this result transmitted ref erence range: <=18. Th e reference range was not used to int erpret this result as normal/abnormal . Lab Interpretation Abnormal (test code = 00962-0) [facility] [id number] 20:04:48 Test Item Value Reference Range Interpretation Comments Diff Cancelled (test See Note Due to low WBC, the code = 8954) differential wi ll not be performed and i t is not possible to michael culate ANC. [facility] [id number] 20:04:48 Test Item Value Reference Range Interpretation Comments Diff Cancelled (test See Note Due to low WBC, the code = 8954) differential wi ll not be performed and i t is not possible to michael culate ANC. [facility] Gjhvkc7319-27-23 20:04:48 Test Item Value Reference Range Interpretation Comments Diff Cancelled (test See Note Due to low WBC, the code = 8954) differential wi ll not be performed and i t is not possible to michael culate ANC. [facility], Nasopharyngeal [id number] 14:00:06 Test Item Value Reference Range Interpretation Comments Adenovirus (test code = Not Detected Not Detected 8006) Coronavirus 229E (test Not Detected Not Detected code = 5384) Coronavirus HKU1 (test Not Detected Not Detected code = 4590) Coronavirus NL63 (test Not Detected Not Detected code = 5351) Coronavirus OC43 (test Not Detected Not Detected code = 5352) COVID19 (SARS-CoV-2) Not Detected Not Detected (test code = 77206-4) Human Metapneumovirus Not Detected Not Detected (test [...] Detected Not Detected Parapertussis (test code = 44813) Bordetella pertussis Not Detected Not Detected (test [...] including SARS-CoV-2, from a single nasopharyngeal swab (EVENT REPRESENTATIVE) specimen. Specifically, the SARS-CoV-2 primers contained in [...] and high-complexity tests. The Microbiology Laboratory at [facility] [place], CLIA Accreditation #[id number] and CAP Accreditation #[id number], verified the performance characteristics of this assay. Microbiology Laboratory at [facility] performs the assay using the [employer] System. Internal controls are used to monitor all stages of the test process. [facility], Nasopharyngeal [id number] 14:00:06 Test Item Value Reference Range Interpretation [...] Not Detected Not Detected (test code = 43261-3) Human Metapneumovirus Not Detected Not Detected (test [...] Detected Not Detected Parapertussis (test code = 03696) Bordetella pertussis Not Detected Not Detected (test [...] including SARS-CoV-2, from a single nasopharyngeal swab (EVENT REPRESENTATIVE) specimen. Specifically, the SARS-CoV-2 primers contained in [...] and high-complexity tests. The Microbiology Laboratory at [facility], CLIA Accreditation #[id number] and CAP Accreditation #[id number], verified the performance characteristics of this assay. Microbiology Laboratory at [facility] performs the assay using the [employer] System. Internal controls are used to monitor all stages of the test process. [facility], Nasopharyngeal [id number] 14:00:06 Test Item Value Reference Range Interpretation [...] Not Detected Not Detected (test code = 26184-5) Human Metapneumovirus Not Detected Not Detected (test [...] Detected Not Detected Parapertussis (test code = 82434) Bordetella pertussis Not Detected Not Detected (test [...] including SARS-CoV-2, from a single nasopharyngeal swab (EVENT REPRESENTATIVE) specimen. Specifically, the SARS-CoV-2 primers contained in [...] and high-complexity tests. The Microbiology Laboratory at [facility], CLIA Accreditation #[id number] and CAP Accreditation #[id number], verified the performance characteristics of this assay. Microbiology Laboratory at [facility] performs the assay using the [employer] System. Internal controls are used to monitor all stages of the test process. [facility] [id number] 13:00:00 Test Item Value Reference Range Interpretation Comments CULTURE (BEAKER) (test No growth in 5 days code = 1095) BLOOD [id number] 13:00:00 Test Item Value Reference Range Interpretation Comments CULTURE (BEAKER) (test No growth in 5 days code = 1095) CT, BRAIN, WITHOUT [id number] 12:22:00Unlisted Reason for Exam - Click Yes and Enter Reason Below->No [facility] : 1950 Sex: MFINAL REPORT CT Head without contrast CLINICAL HISTORY: Dizziness, non- specific TECHNIQUE: Contiguous axial CT images through the head without contrast. This exam was performed according to the departmental dose optimization program which includes automated exposure control, adjustment of the mA and/or kV according to the patient size, and/or use of an iterative reconstruction technique. 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 There is mild periventricular and subcorticalwhite matter hypodensity which is nonspecific but compatible [...] MDReport Verified Date/Time: 09/11/2020 12:22:16 Reading Location: [facility] Reading Room URINALYSIS W/ [id number] 11:21:00 Test Item Value Reference Range Interpretation [...] 1663) SOURCE(BEAKER) (test code = 2795) TROPONIN [id number] 11:12:00 Test Item Value Reference Range Interpretation [...] failure, acidosis, acute neurological disease, and persistent tachyarrhythmia.[employer] ID - [id number] ACID, VENOUS 2020-09-11 10:57:00 Test Item Value Reference Range Interpretation Comments LACTATE BLOOD 1.55 mmol/L See_Comment [Automated me ssage] VENOUS (2) (BEAKER) The syst em which (test code = 2872) generated this result transmitted ref erence range: 0.50-<2. 00. The reference range was not used to interpr et this result as normal/abnormal . [employer] ID - [id number] ID - [id number] ID - [id number] ID - [id number] CBC W/PLT COUNT & AUTO [id number] 10:43:00 Test Item Value Reference Range Interpretation [...] (BEAKER) (test code = 2801) COMPREHENSIVE METABOLIC [id number] 10:43:00 Test Item Value Reference Range Interpretation [...] S NOT APPLICABLE FOR DIALYSIS PATIEN TS. [employer] ID - [id number] ID - [id number] ID - [id number] ID - wtdn29Zkskxckh ID - romh25Xpgtkrkl ID - bldf13Xqjljlxk ID - zjst74Kmkgexlx ID - ltms10Nuphemlo ID - ituf67Lfbzzbxk ID - jhky29Pjrmspsc ID - hoia45Dwazfggc ID - abij87Cxmigjzt ID - xzzu29Pfevffvx ID - cndn56Mpkssxgq ID - bvdq14Hxpebibn ID - dlcm45Qtpebchq ID - inij50Uybqyear ID - cozi94Tpnuoowb ID - [id number] KINASE (CK)2020-09-11 10:38:00 Test Item Value Reference Range Interpretation Comments CREATINE KINASE TOTAL (BEAKER) (test 266 U/L 40-250 H code = 380) [employer] ID - [id number] TIME/[id number] 10:34:00 Test Item Value Reference Range Interpretation Comments PROTIME (BEAKER) 10.9 seconds 9.3-12.0 Final Infor mation (test code = 759) (Auto Outp ut) INR (BEAKER) (test 0.98 See_Comment Final Inf ormation code = 370) (Auto Output) [Automated mess age] The system [employer] generated this result transmitted ref erence range: <=5.90. The reference range was not used to int erpret this result as normal/abnormal . RECOMMENDED COUMADIN/WARFARIN INR THERAPY RANGESSTANDARD DOSE: 2.0 - 3.0 Includes: PROPHYLAXIS for venous thrombosis, systemic embolization; TREATMENT for venous thrombosis and/or pulmonary embolus.HIGH RISK: Target INR is 2.5-3.5 for patients with mechanical heart valves.[id number] 10:34:00 Test Item Value Reference Range Interpretation Comments PARTIAL THROMBOPLASTIN 22.8 seconds 23.0-35.0 L Final Information TIME (BEAKER) (test (Auto Ou tput) code = 760) POCT-GLUCOSE [id number] 10:29:00 Test Item Value Reference Range Interpretation Comments POC-GLUCOSE METER 106 mg/dL 70-110 : TESTED A T SL[address] 1317 (BEAKER) (test code [address], = 1538) [facility] 77 478: [employer]/Techni mae ID = [id number] for Irene Dorman RAD, CHEST, 1 VIEW, NON [id number] 10:16:00Reason for exam:- >HYPOTENSIONReason for exam:->coughShould this be performed at the bedside?->Yes[facility] : 1950 Sex: MFINAL REPORT INDICATION: HYPOTENSIONcough COMPARISON: None TECHNIQUE: Single frontal view of the chest. FINDINGS: Lungs and pleura: Mild bibasilar atelectasis No effusion.Heart and mediastinum: Normal heart size. Unremarkable mediastinal contours.Osseous structures: No acute abnormality.Other: None. IMPRESSION: No acute intrathoracic abnormality. Signed: Jayne Maloney Verified Date/Time: 09/11/2020 10:16:33 Reading Location: [facility] Radiology Reading Room RAPID DRUG SCREEN, [id number] 19:07:00 Test Item Value Reference Range Interpretation [...] ng/mLOpiate 300 ng/mLMethadone 300 ng/mLAmphetamine/ 1000 ng/mL MethamphetamineThisassay provides an unconfirmed qualitative test result for the clinical management of patients in emergency situations. Chain of custody not maintained. Some cftq-chq-lvxajgo medications, as well as adulterants, may cause inaccurate results. Clinical correlation should be applied. A more comprehensive drug screen or confirmation of a detected drug may be performed upon request.[employer] ID - [id number] ID - [id number] ID - [id number] ID - [id number] ID - [id number] ID - [id number] ID - [id number] ID - [id number] URINALYSIS W/ [id number] 16:12:00 Test Item Value Reference Range Interpretation [...] 1663) SOURCE(BEAKER) (test code = 2795) TROPONIN [id number] 15:12:00 Test Item Value Reference Range Interpretation [...] failure, acidosis, acute neurological disease, and persistent tachyarrhythmia.[employer] ID - [id number] [id number] 15:10:00 Test Item Value Reference Range Interpretation Comments ACETAMINOPHEN LEVEL (BEAKER) (test < ug/mL 10.0-30.0 L code = 344) [employer] ID - [id number] ID - [id number] ID - [id number] ID - [id number] [id number] 15:10:00 Test Item Value Reference Range Interpretation Comments SALICYLATE LEVEL (BEAKER) (test 0.9 mg/dL 20.0-30.0 L code = 764) [employer] ID - [id number] 15:06:00 Test Item Value Reference Range Interpretation Comments ETHANOL (BEAKER) < mg/dL See_Comment [Automated message] The (test code = 400) system [employer] generated this result tra nsmitted reference range : <=10. The reference r louis was not used to int erpret this result as normal/abnormal . [employer] ID - [id number] 15:05:00 Test Item Value Reference Range Interpretation Comments MAGNESIUM (BEAKER) (test code = 2.3 mg/dL 1.5-3.0 627) [employer] ID - [id number] ID - [id number] ID - [id number] ID - [id number] METABOLIC [id number] 15:05:00 Test Item Value Reference Range Interpretation [...] S NOT APPLICABLE FOR DIALYSIS PATIEN TS. [employer] ID - [id number] ID - [id number] ID - [id number] ID - ZOCHN106Rifckqvj ID - NUCDR593Esafwolq ID - YRAQK295Jmljczbn ID - FXGWX364Ccdzjxtx ID - SLLRB369Ajerdbiv ID - XBIOT163Nnqpnazg ID - TQWAE549Qtscpfxj ID - YAVVQ331Hitcqkjr ID - TZLWP477Ioxgnsde ID - ULBOP314Iapbsaba ID - MUCRJ015Viivpvyi ID - JNBFY655Vlwabexn ID - [id number] 15:02:00 Test Item Value Reference Range Interpretation Comments PHOSPHORUS (BEAKER) (test code = 4.0 mg/dL 2.5-4.5 604) [employer] ID - [id number] W/PLT COUNT & AUTO [id number] 14:46:00 Test Item Value Reference Range Interpretation [...] Not Detected Not Detected (test code = 56640-6) DARCI (test code = DARCI) ID NOW COVID-19 Assay is an isothermal nucleic acid amplification test intended for the qualitative detection of nucleic acid from SARS-CoV-2 viral RNA in nasopharyngeal (MENTAL HEALTH PROGRAM SPECIALIST) specimens. It is used under Emergency Use [...] indicated. Lab Interpretation Normal (test code = 71414-7) [facility]2017-04-06 09:31:00 Test Item Value Reference Range Interpretation Comments Potassium Lvl (test code = Potassium 4.0 3.5-5.1 Lvl) [facility]2017-04-06 09:31:00 Test Item Value Reference Range Interpretation Comments Sodium Lvl (test code = Sodium Lvl) 140 135-145 [facility]2017-04-06 09:31:00 Test Item Value Reference Range Interpretation Comments Creatinine Lvl (test code = Creatinine 1.10 0.50-1.40 Lvl) [facility]2017-04-06 09:31:00 Test Item Value Reference Range Interpretation Comments BUN (test code = BUN) 21 7-22 [facility]2017-04-06 09:31:00 Test Item Value Reference Range Interpretation Comments AGAP (test code = AGAP) 13.0 10.0-20.0 [facility]2017-04-06 09:31:00 Test Item Value Reference Range Interpretation Comments CO2 (test code = CO2) 27 24-32 [facility]2017-04-06 09:31:00 Test Item Value Reference Range Interpretation Comments Calcium Lvl (test code = Calcium Lvl) 8.2 8.5-10.5 [facility]2017-04-06 09:31:00 Test Item Value Reference Range Interpretation Comments Chloride Lvl (test code = Chloride Lvl) 104 95-109 [facility]2017-04-06 09:31:00 Test Item Value Reference Range Interpretation Comments eGFR (test code = eGFR) 69 [facility]2017-04-06 09:31:00 Test Item Value Reference Range Interpretation Comments Glucose Lvl (test code = Glucose Lvl) 104 70-99 [facility]2017-04-06 09:31:00 Test Item Value Reference Range Interpretation Comments Potassium Lvl (test code = Potassium 4.0 3.5-5.1 Lvl) [facility]2017-04-06 09:31:00 Test Item Value Reference Range Interpretation Comments Sodium Lvl (test code = Sodium Lvl) 140 135-145 [facility]2017-04-06 09:31:00 Test Item Value Reference Range Interpretation Comments Creatinine Lvl (test code = Creatinine 1.10 0.50-1.40 Lvl) [facility]2017-04-06 09:31:00 Test Item Value Reference Range Interpretation Comments BUN (test code = BUN) 21 7-22 [facility]2017-04-06 09:31:00 Test Item Value Reference Range Interpretation Comments AGAP (test code = AGAP) 13.0 10.0-20.0 [facility]2017-04-06 09:31:00 Test Item Value Reference Range Interpretation Comments CO2 (test code = CO2) 27 24-32 [facility]2017-04-06 09:31:00 Test Item Value Reference Range Interpretation Comments Calcium Lvl (test code = Calcium Lvl) 8.2 8.5-10.5 [facility]2017-04-06 09:31:00 Test Item Value Reference Range Interpretation Comments Chloride Lvl (test code = Chloride Lvl) 104 95-109 [facility]2017-04-06 09:31:00 Test Item Value Reference Range Interpretation Comments eGFR (test code = eGFR) 69 [facility]2017-04-06 09:31:00 Test Item Value Reference Range Interpretation Comments Glucose Lvl (test code = Glucose Lvl) 104 70-99 [facility]2017-04-05 10:06:00 Test Item Value Reference Range Interpretation Comments Magnesium Lvl (test code = Magnesium 2.6 1.8-2.4 Lvl) [facility]KE[facility]38[facility] 10:06:00 Test Item Value Reference Range Interpretation Comments AGAP (test code = AGAP) 15.4 10.0-20.0 [facility]gomwgpKYDFXCYFOPBG4994-30-19 10:06:00 Test Item Value Reference Range Interpretation Comments eGFR (test code = eGFR) 69 [facility]borLabaoxiQWCEJJYAHJLF3968-38-36 10:06:00 Test Item Value Reference Range Interpretation Comments Glucose Lvl (test code = Glucose Lvl) 110 70-99 [facility]borTqwasuzKFCFAOHYYVZS8143-29-64 10:06:00 Test Item Value Reference Range Interpretation Comments BUN (test code = BUN) 26 7-22 [facility]borAzritrrTVXDRJOTIKXJ0022-18-00 10:06:00 Test Item Value Reference Range Interpretation Comments Chloride Lvl (test code = Chloride Lvl) 105 95-109 [facility]borBwnyzssXHUBWFXDGNOJ3224-24-05 10:06:00 Test Item Value Reference Range Interpretation Comments Creatinine Lvl (test code = Creatinine 1.10 0.50-1.40 Lvl) [facility]borQwalmrfPJLKASOFSCXS1090-72-30 10:06:00 Test Item Value Reference Range Interpretation Comments Sodium Lvl (test code = Sodium Lvl) 137 135-145 [facility]borKesthcyMXMDBDXUMGPQ8175-05-61 10:06:00 Test Item Value Reference Range Interpretation Comments Potassium Lvl (test code = Potassium 4.4 3.5-5.1 Lvl) [facility]borOsjewzsPGYGVENAGDEC0627-27-99 10:06:00 Test Item Value Reference Range Interpretation Comments CO2 (test code = CO2) 21 24-32 [facility]borVvtibvzLHTNTEQWBAFP6942-14-97 10:06:00 Test Item Value Reference Range Interpretation Comments Calcium Lvl (test code = Calcium Lvl) 8.1 8.5-10.5 [facility]RgjmqmhNVIFKRBBYB4866-55-05 10:06:00 Test Item Value Reference Range Interpretation Comments Basophils (test code = 0.3 See_Comment [Aut omated message] The Basophils) system which ge nerated this result tra nsmitted reference range : <=1.0. The reference r louis was not used to int erpret this result as normal/abnormal . [facility]cosWwjsrtbRUZGXSCOUD2505-77-70 10:06:00 Test Item Value Reference Range Interpretation Comments Segs-Bands # (test code = Segs-Bands #) 9.5 1.5-8.1 [facility]cosPczjvoxPKJFYXROFX1032-92-72 10:06:00 Test Item Value Reference Range Interpretation Comments Lymphocytes # (test code = Lymphocytes 1.2 1.0-5.5 #) [facility]cosNrnvlbvLLYYJURCQS5644-12-96 10:06:00 Test Item Value Reference Range Interpretation Comments Monocytes # (test code 1.4 See_Comment [Aut omated message] The = Monocytes #) system which generated this result tra nsmitted reference range : <=0.8. The reference r louis was not used to int erpret this result as normal/abnormal . [facility]cosSjhihyxIBQZRRVLOB6843-04-61 10:06:00 Test Item Value Reference Range Interpretation Comments Basophils # (test code 0.0 See_Comment [Aut omated message] The = Basophils #) system which generated this result tra nsmitted reference range : <=0.2. The reference r louis was not used to int erpret this result as normal/abnormal . [facility]cosDhzwsopZNLRLPOLNU6821-90-95 10:06:00 Test Item Value Reference Range Interpretation Comments Eosinophils # (test code 0.2 See_Comment [A utomated message] The = Eosinophils #) system whic h generated this result tra nsmitted reference range : <=0.5. The reference r louis was not used to int erpret this result as normal/abnormal . [facility]cosVxdgqqtJULQGJHPIS1732-90-89 10:06:00 Test Item Value Reference Range Interpretation Comments Polychrom (test code = Moderate *ABN*(06/29/16 Polychrom) 5:06 AM) [facility]cosNjsqwfrTRNIAMGUCL7227-19-94 10:06:00 Test Item Value Reference Range Interpretation Comments Plt Morph (test code = Normal (06/29/16 5:06 AM) Plt Morph) [facility]cosLmclvhqTBISMXUANS7541-55-06 10:06:00 Test Item Value Reference Range Interpretation Comments Lymphocytes (test code = Lymphocytes) 9.7 20.0-40.0 [facility]cosXqkkgjzPVASCGKAKR4925-60-77 10:06:00 Test Item Value Reference Range Interpretation Comments Segs (test code = Segs) 77.0 45.0-75.0 [facility]cosBujoriiYQPXQKRVTJ3175-89-92 10:06:00 Test Item Value Reference Range Interpretation Comments Eosinophils (test code = 1.6 See_Comment [A utomated message] The Eosinophils) system which ge nerated this result tra nsmitted reference range : <=4.0. The reference r louis was not used to int erpret this result as normal/abnormal . [facility]cosLitlhhqKOZOYKLOCM2166-95-61 10:06:00 Test Item Value Reference Range Interpretation Comments Monocytes (test code = Monocytes) 11.4 2.0-12.0 [facility] MarcosUejegpcBFTEKMVQWS9351-89-22 10:06:00 Test Item Value Reference Range Interpretation Comments MCH (test code = MCH) 28.6 pg 27.0-31.0 [facility] MarcosQiwuihaOSPEVQLFRX9351-01-69 10:06:00 Test Item Value Reference Range Interpretation Comments Platelet (test code = Platelet) 163 133-450 [facility] MarcosPdjbtksETAEFIIZKV9749-11-26 10:06:00 Test Item Value Reference Range Interpretation Comments RDW (test code = RDW) 14.2 11.5-14.5 [facility]cosMwqoldoMKOKBVGMKX0416-28-64 10:06:00 Test Item Value Reference Range Interpretation Comments MCHC (test code = MCHC) 33.9 32.0-36.0 [facility]cosZhduhavTTNXQPYJIC9779-77-71 10:06:00 Test Item Value Reference Range Interpretation Comments MPV (test code = MPV) 8.3 7.4-10.4 [facility]cosNsnxhiiBZHPYMCCUQ1793-14-02 10:06:00 Test Item Value Reference Range Interpretation Comments RBC (test code = RBC) 3.11 4.70-6.10 [facility]cosDfrhxrmZGMWKSQYDC4209-37-08 10:06:00 Test Item Value Reference Range Interpretation Comments WBC (test code = WBC) 12.3 3.7-10.4 [facility] MarcosParqchiFSAFKJFDIG0018-75-74 10:06:00 Test Item Value Reference Range Interpretation Comments MCV (test code = MCV) 84.3 80.0-94.0 [facility]cosZnpaqdcURRLQNPVRI9996-06-27 10:06:00 Test Item Value Reference Range Interpretation Comments Hct (test code = Hct) 26.2 42.0-54.0 [facility]cosMwqeazzUBZGXPQKSX1420-42-96 10:06:00 Test Item Value Reference Range Interpretation Comments Hgb (test code = Hgb) 8.9 14.0-18.0 [facility]2017-04-05 10:06:00 Test Item Value Reference Range Interpretation Comments Magnesium Lvl (test code = Magnesium 2.6 1.8-2.4 Lvl) [facility]UiyfttlCVYUGMLRKCXY6022-85-45 10:06:00 Test Item Value Reference Range Interpretation Comments AGAP (test code = AGAP) 15.4 10.0-20.0 [facility]borMuahuqrVFEIVTXJOAAM8760-78-79 10:06:00 Test Item Value Reference Range Interpretation Comments eGFR (test code = eGFR) 69 [facility]borMzfogtkAQTMHLKIFIHY4580-51-05 10:06:00 Test Item Value Reference Range Interpretation Comments Glucose Lvl (test code = Glucose Lvl) 110 70-99 [facility]borAnzxvdhCCJPEQYEORAC7593-85-18 10:06:00 Test Item Value Reference Range Interpretation Comments BUN (test code = BUN) 26 7-22 [facility]borDrrwjrfMHRVCWBHQROR1822-68-62 10:06:00 Test Item Value Reference Range Interpretation Comments Chloride Lvl (test code = Chloride Lvl) 105 95-109 [facility]borVpbkuapJVJKFINSJRWA0301-73-25 10:06:00 Test Item Value Reference Range Interpretation Comments Creatinine Lvl (test code = Creatinine 1.10 0.50-1.40 Lvl) [facility]borKotqgceSDSALZNUFYOI8500-33-19 10:06:00 Test Item Value Reference Range Interpretation Comments Sodium Lvl (test code = Sodium Lvl) 137 135-145 [facility]borVnlpiusWKALPCZDTWDF2401-61-83 10:06:00 Test Item Value Reference Range Interpretation Comments Potassium Lvl (test code = Potassium 4.4 3.5-5.1 Lvl) [facility]borPnpvbdeJUCZQNZBYSUC1388-13-98 10:06:00 Test Item Value Reference Range Interpretation Comments CO2 (test code = CO2) 21 24-32 [facility]borIfitjlcLVKLHPYQLJZJ6281-86-28 10:06:00 Test Item Value Reference Range Interpretation Comments Calcium Lvl (test code = Calcium Lvl) 8.1 8.5-10.5 [facility]MebdmfeHUVHIYPHHR6780-02-24 10:06:00 Test Item Value Reference Range Interpretation Comments Basophils (test code = 0.3 See_Comment [Aut omated message] The Basophils) system which ge nerated this result tra nsmitted reference range : <=1.0. The reference r [place] was not used to int erpret this result as normal/abnormal . [facility]cosJrmqqauZMVBUSVHSY7730-84-00 10:06:00 Test Item Value Reference Range Interpretation Comments Segs-Bands # (test code = Segs-Bands #) 9.5 1.5-8.1 [facility]cosPklnsqgNLNQREGEIM5134-75-96 10:06:00 Test Item Value Reference Range Interpretation Comments Lymphocytes # (test code = Lymphocytes 1.2 1.0-5.5 #) [facility]cosGgvolseWHQSATHQHB7585-86-97 10:06:00 Test Item Value Reference Range Interpretation Comments Monocytes # (test code 1.4 See_Comment [Aut omated message] The = Monocytes #) system which generated this result tra nsmitted reference range : <=0.8. The reference r [place] was not used to int erpret this result as normal/abnormal . [facility]cosAtovqqiXRLWTNMGHI0054-33-04 10:06:00 Test Item Value Reference Range Interpretation Comments Basophils # (test code 0.0 See_Comment [Aut omated message] The = Basophils #) system which generated this result tra nsmitted reference range : <=0.2. The reference r lou[place] was not used to int erpret this result as normal/abnormal . [facility]cosEdmiestJGALAEKTOZ8339-01-52 10:06:00 Test Item Value Reference Range Interpretation Comments Eosinophils # (test code 0.2 See_Comment [A utomated message] The = Eosinophils #) system whic h generated this result tra nsmitted reference range : <=0.5. The reference r lou[place] was not used to int erpret this result as normal/abnormal . [facility]cosAxecxavVRCLBFSUSQ2296-76-62 10:06:00 Test Item Value Reference Range Interpretation Comments Polychrom (test code = Moderate *ABN*(06/29/16 Polychrom) 5:06 AM) [facility]cosTahytzvDOVJTMKJZR6595-82-30 10:06:00 Test Item Value Reference Range Interpretation Comments Plt Morph (test code = Normal (06/29/16 5:06 AM) Plt Morph) [facility]cosJpbmqwpVFHEJNKHVO0688-64-49 10:06:00 Test Item Value Reference Range Interpretation Comments Lymphocytes (test code = Lymphocytes) 9.7 20.0-40.0 [facility]cosJktdkecLGIETMQEYQ7887-22-93 10:06:00 Test Item Value Reference Range Interpretation Comments Segs (test code = Segs) 77.0 45.0-75.0 [facility]cosDrycabbXTBHYMTVCO3487-93-31 10:06:00 Test Item Value Reference Range Interpretation Comments Eosinophils (test code = 1.6 See_Comment [A utomated message] The Eosinophils) system which ge nerated this result tra nsmitted reference range : <=4.0. The reference r lou[place] was not used to int erpret this result as normal/abnormal . [facility]cosSkfyluaHDGDXZZFGD7677-31-04 10:06:00 Test Item Value Reference Range Interpretation Comments Monocytes (test code = Monocytes) 11.4 2.0-12.0 [facility]cosRelcobdGNUQLBZZZL2425-15-06 10:06:00 Test Item Value Reference Range Interpretation Comments MCH (test code = MCH) 28.6 pg 27.0-31.0 [facility]cosYhewulnVCNIRTYVLC7520-33-46 10:06:00 Test Item Value Reference Range Interpretation Comments Platelet (test code = Platelet) 163 133-450 [facility]cosWjuyrsnZYFIBITRTN7769-83-83 10:06:00 Test Item Value Reference Range Interpretation Comments RDW (test code = RDW) 14.2 11.5-14.5 [facility]cosUqioxqmBQVZRBYVNR7203-39-11 10:06:00 Test Item Value Reference Range Interpretation Comments MCHC (test code = MCHC) 33.9 32.0-36.0 [facility]cosMhcpzwvFGUUWVVOLE7955-28-53 10:06:00 Test Item Value Reference Range Interpretation Comments MPV (test code = MPV) 8.3 7.4-10.4 [facility]cosPhuedwvKQBTAJCEKH6739-09-56 10:06:00 Test Item Value Reference Range Interpretation Comments RBC (test code = RBC) 3.11 4.70-6.10 [facility]cosXtbnnzxZMSZEVLDUJ7459-69-45 10:06:00 Test Item Value Reference Range Interpretation Comments WBC (test code = WBC) 12.3 3.7-10.4 [facility]cosGfioqbvEMHSUZGUPC7994-04-67 10:06:00 Test Item Value Reference Range Interpretation Comments MCV (test code = MCV) 84.3 80.0-94.0 [facility]cosZsyhcitBUDLNNGNKQ1800-41-55 10:06:00 Test Item Value Reference Range Interpretation Comments Hct (test code = Hct) 26.2 42.0-54.0 [facility]cosLdoffpyGJJCGTHAZK9298-50-61 10:06:00 Test Item Value Reference Range Interpretation Comments Hgb (test code = Hgb) 8.9 14.0-18.0 [facility]2017-04-04 10:42:00 Test Item Value Reference Range Interpretation Comments eGFR (test code = eGFR) 56 [facility]2017-04-04 10:42:00 Test Item Value Reference Range Interpretation Comments Calcium Lvl (test code = Calcium Lvl) 8.3 8.5-10.5 [facility]2017-04-04 10:42:00 Test Item Value Reference Range Interpretation Comments Potassium Lvl (test code = Potassium 4.5 3.5-5.1 Lvl) [facility]2017-04-04 10:42:00 Test Item Value Reference Range Interpretation Comments CO2 (test code = CO2) 24 24-32 [facility]2017-04-04 10:42:00 Test Item Value Reference Range Interpretation Comments Chloride Lvl (test code = Chloride Lvl) 107 95-109 [facility]2017-04-04 10:42:00 Test Item Value Reference Range Interpretation Comments Glucose Lvl (test code = Glucose Lvl) 118 70-99 [facility]2017-04-04 10:42:00 Test Item Value Reference Range Interpretation Comments BUN (test code = BUN) 29 7-22 [facility]2017-04-04 10:42:00 Test Item Value Reference Range Interpretation Comments Sodium Lvl (test code = Sodium Lvl) 139 135-145 [facility]2017-04-04 10:42:00 Test Item Value Reference Range Interpretation Comments Creatinine Lvl (test code = Creatinine 1.30 0.50-1.40 Lvl) [facility]2017-04-04 10:42:00 Test Item Value Reference Range Interpretation Comments AGAP (test code = AGAP) 12.5 10.0-20.0 [facility]2017-04-04 10:42:00 Test Item Value Reference Range Interpretation Comments Magnesium Lvl (test code = Magnesium 2.7 1.8-2.4 Lvl) [facility]cosBrztosaCSVISIMRFH3029-04-22 10:42:00 Test Item Value Reference Range Interpretation Comments Hgb (test code = Hgb) 9.0 14.0-18.0 [facility]cosJgceckuZGOKQEVNQB9421-08-13 10:42:00 Test Item Value Reference Range Interpretation Comments Hct (test code = Hct) 27.7 42.0-54.0 [facility]cosEwnksctDVJYCREEJT6400-90-02 10:42:00 Test Item Value Reference Range Interpretation Comments MCV (test code = MCV) 87.2 80.0-94.0 [facility]cosTrkcgflUZQRPDVFDW3843-70-19 10:42:00 Test Item Value Reference Range Interpretation Comments MCH (test code = MCH) 28.5 pg 27.0-31.0 [facility]cosArfvhhxKTKVRDWEGN5278-38-83 10:42:00 Test Item Value Reference Range Interpretation Comments MCHC (test code = MCHC) 32.6 32.0-36.0 [facility]cosJzjugnfELXXZEMTBN5923-26-80 10:42:00 Test Item Value Reference Range Interpretation Comments WBC (test code = WBC) 11.9 3.7-10.4 [facility]cosWwevzauMBPRFLUULT5464-05-09 10:42:00 Test Item Value Reference Range Interpretation Comments RBC (test code = RBC) 3.17 4.70-6.10 [facility]cosBbqzvymXVDHPNDYKX3708-13-17 10:42:00 Test Item Value Reference Range Interpretation Comments RDW (test code = RDW) 14.6 11.5-14.5 [facility]cosTwdzygwULDQLIHEOW8650-09-35 10:42:00 Test Item Value Reference Range Interpretation Comments Platelet (test code = Platelet) 136 133-450 [facility]cosAehalvxGQWYVLAPBL5814-02-93 10:42:00 Test Item Value Reference Range Interpretation Comments MPV (test code = MPV) 8.6 7.4-10.4 [facility]cosFznantdLKHPFPJXSO7886-49-77 10:42:00 Test Item Value Reference Range Interpretation Comments Lymphocytes # (test code = Lymphocytes 1.5 1.0-5.5 #) [facility]cosSfnbbwfJQVGWYTTEU5264-22-80 10:42:00 Test Item Value Reference Range Interpretation Comments Monocytes # (test code 1.4 See_Comment [Aut omated message] The = Monocytes #) system which generated this result tra nsmitted reference range : <=0.8. The reference r lou[place] was not used to int erpret this result as normal/abnormal . [facility]cosYsshqiaZLLGTIOPSX6531-75-82 10:42:00 Test Item Value Reference Range Interpretation Comments Eosinophils # (test code 0.1 See_Comment [A utomated message] The = Eosinophils #) system whic h generated this result tra nsmitted reference range : <=0.5. The reference r [place] was not used to int erpret this result as normal/abnormal . [facility]cosYickrmvMLRZYBMRGW9853-33-74 10:42:00 Test Item Value Reference Range Interpretation Comments Lymphocytes (test code = Lymphocytes) 12.3 20.0-40.0 [facility]cosUfskzpkAXLFXLSABE2693-24-01 10:42:00 Test Item Value Reference Range Interpretation Comments Monocytes (test code = Monocytes) 11.6 2.0-12.0 [facility]cosCkfrwnpADIZAZYSCR6031-70-86 10:42:00 Test Item Value Reference Range Interpretation Comments Eosinophils (test code = 1.1 See_Comment [A utomated message] The Eosinophils) system which ge nerated this result tra nsmitted reference range : <=4.0. The reference r [place] was not used to int erpret this result as normal/abnormal . [facility]cosElqzjatCXSDYTWVJY0003-44-05 10:42:00 Test Item Value Reference Range Interpretation Comments Basophils (test code = 0.3 See_Comment [Aut omated message] The Basophils) system which ge nerated this result tra nsmitted reference range : <=1.0. The reference r lou[place] was not used to int erpret this result as normal/abnormal . [facility]cosCtqclmrCDBLBJYZNK5068-61-37 10:42:00 Test Item Value Reference Range Interpretation Comments Segs-Bands # (test code = Segs-Bands #) 8.9 1.5-8.1 [facility]cosFwzhzyxTQFYEXWASR3041-47-81 10:42:00 Test Item Value Reference Range Interpretation Comments Segs (test code = Segs) 74.7 45.0-75.0 [facility]2017-04-04 10:42:00 Test Item Value Reference Range Interpretation Comments eGFR (test code = eGFR) 56 [facility]2017-04-04 10:42:00 Test Item Value Reference Range Interpretation Comments Calcium Lvl (test code = Calcium Lvl) 8.3 8.5-10.5 [facility]2017-04-04 10:42:00 Test Item Value Reference Range Interpretation Comments Potassium Lvl (test code = Potassium 4.5 3.5-5.1 Lvl) [facility]2017-04-04 10:42:00 Test Item Value Reference Range Interpretation Comments CO2 (test code = CO2) 24 24-32 [facility]2017-04-04 10:42:00 Test Item Value Reference Range Interpretation Comments Chloride Lvl (test code = Chloride Lvl) 107 95-109 [facility]2017-04-04 10:42:00 Test Item Value Reference Range Interpretation Comments Glucose Lvl (test code = Glucose Lvl) 118 70-99 [facility]2017-04-04 10:42:00 Test Item Value Reference Range Interpretation Comments BUN (test code = BUN) 29 7-22 [facility]2017-04-04 10:42:00 Test Item Value Reference Range Interpretation Comments Sodium Lvl (test code = Sodium Lvl) 139 135-145 [facility]2017-04-04 10:42:00 Test Item Value Reference Range Interpretation Comments Creatinine Lvl (test code = Creatinine 1.30 0.50-1.40 Lvl) [facility]2017-04-04 10:42:00 Test Item Value Reference Range Interpretation Comments AGAP (test code = AGAP) 12.5 10.0-20.0 [facility]2017-04-04 10:42:00 Test Item Value Reference Range Interpretation Comments Magnesium Lvl (test code = Magnesium 2.7 1.8-2.4 Lvl) [facility]cosNbxjiawSQFXBLWWOV6643-21-94 10:42:00 Test Item Value Reference Range Interpretation Comments Hgb (test code = Hgb) 9.0 14.0-18.0 [facility]cosShnpjjxITIIMDVCWR2174-24-31 10:42:00 Test Item Value Reference Range Interpretation Comments Hct (test code = Hct) 27.7 42.0-54.0 [facility]cosHygembcWTXSGYOQSM0553-72-22 10:42:00 Test Item Value Reference Range Interpretation Comments MCV (test code = MCV) 87.2 80.0-94.0 [facility]cosKgpnosrTBZSIDXAUR5541-84-18 10:42:00 Test Item Value Reference Range Interpretation Comments MCH (test code = MCH) 28.5 pg 27.0-31.0 [facility]cosDxgmnboJVOFZLMZYL6757-83-96 10:42:00 Test Item Value Reference Range Interpretation Comments MCHC (test code = MCHC) 32.6 32.0-36.0 [facility]cosMrtucsdMDFKHJSGVJ7145-63-28 10:42:00 Test Item Value Reference Range Interpretation Comments WBC (test code = WBC) 11.9 3.7-10.4 [facility]cosTzgmqozGVMEPCLDDA9111-25-66 10:42:00 Test Item Value Reference Range Interpretation Comments RBC (test code = RBC) 3.17 4.70-6.10 [facility]cosMefgmjpMIDGLCWEXE1721-76-32 10:42:00 Test Item Value Reference Range Interpretation Comments RDW (test code = RDW) 14.6 11.5-14.5 [facility]cosHxkaeowXGQEEVPSKQ6157-00-70 10:42:00 Test Item Value Reference Range Interpretation Comments Platelet (test code = Platelet) 136 133-450 [facility]cosUgexsgeUCUTTWFQCW4505-76-55 10:42:00 Test Item Value Reference Range Interpretation Comments MPV (test code = MPV) 8.6 7.4-10.4 [facility]cosNgakhthCMJITBWYFA7750-54-29 10:42:00 Test Item Value Reference Range Interpretation Comments Lymphocytes # (test code = Lymphocytes 1.5 1.0-5.5 #) [facility]cosPorpeznVLFTCYYXNQ1192-72-61 10:42:00 Test Item Value Reference Range Interpretation Comments Monocytes # (test code 1.4 See_Comment [Aut omated message] The = Monocytes #) system which generated this result tra nsmitted reference range : <=0.8. The reference r louis was not used to int erpret this result as normal/abnormal . [facility]cosPrfhbraKXKEMZGVTQ5526-36-86 10:42:00 Test Item Value Reference Range Interpretation Comments Eosinophils # (test code 0.1 See_Comment [A utomated message] The = Eosinophils #) system whic h generated this result tra nsmitted reference range : <=0.5. The reference r lou[place] was not used to int erpret this result as normal/abnormal . [facility]cosYiotyjsZDTXNXLXWE9256-23-66 10:42:00 Test Item Value Reference Range Interpretation Comments Lymphocytes (test code = Lymphocytes) 12.3 20.0-40.0 [facility]cosGaemzqsBRKMPRYCNS2007-33-70 10:42:00 Test Item Value Reference Range Interpretation Comments Monocytes (test code = Monocytes) 11.6 2.0-12.0 [facility]cosLmblgjyIXQLFKYVER5737-36-18 10:42:00 Test Item Value Reference Range Interpretation Comments Eosinophils (test code = 1.1 See_Comment [A utomated message] The Eosinophils) system which ge nerated this result tra nsmitted reference range : <=4.0. The reference r [place] was not used to int erpret this result as normal/abnormal . [facility]cosEjaksixTMQIHXUXZM3807-38-07 10:42:00 Test Item Value Reference Range Interpretation Comments Basophils (test code = 0.3 See_Comment [Aut omated message] The Basophils) system which ge nerated this result tra nsmitted reference range : <=1.0. The reference r lou[place] was not used to int erpret this result as normal/abnormal . [facility]cosHklnanbXQCIBXGBYY8688-62-95 10:42:00 Test Item Value Reference Range Interpretation Comments Segs-Bands # (test code = Segs-Bands #) 8.9 1.5-8.1 [facility]cosHbojzetHYGPPGLJNS2980-88-05 10:42:00 Test Item Value Reference Range Interpretation Comments Segs (test code = Segs) 74.7 45.0-75.0 [facility]2017-04-03 09:50:00 Test Item Value Reference Range Interpretation Comments Magnesium Lvl (test code = Magnesium 2.4 1.8-2.4 Lvl) [facility]cosEowxfxqFWEIJSZUTH7444-90-63 09:50:00 Test Item Value Reference Range Interpretation Comments WBC (test code = WBC) 18.6 3.7-10.4 [facility]cosPkomdstIQTJJGMDQU3241-53-60 09:50:00 Test Item Value Reference Range Interpretation Comments RDW (test code = RDW) 14.7 11.5-14.5 [facility]cosDkchdvhQXXBYMLGKF3334-81-26 09:50:00 Test Item Value Reference Range Interpretation Comments MCHC (test code = MCHC) 33.1 32.0-36.0 [facility]cosKtgosnrMTJKOEBYAS4495-02-13 09:50:00 Test Item Value Reference Range Interpretation Comments Hct (test code = Hct) 29.5 42.0-54.0 [facility]cosBtnswjtVTNZTIPWEL2273-34-97 09:50:00 Test Item Value Reference Range Interpretation Comments MCH (test code = MCH) 28.1 pg 27.0-31.0 [facility]cosQxkbatxPBVJGUOFZF9216-11-76 09:50:00 Test Item Value Reference Range Interpretation Comments MCV (test code = MCV) 84.7 80.0-94.0 [facility]cosBosmwlyFGRZXNCNSW2451-44-67 09:50:00 Test Item Value Reference Range Interpretation Comments MPV (test code = MPV) 9.7 7.4-10.4 [facility]cosKcmyjqdZUIQOKLVEN8504-71-65 09:50:00 Test Item Value Reference Range Interpretation Comments Platelet (test code = Platelet) 118 133-450 [facility]cosFipgwftXMMNZGUTZK8070-77-86 09:50:00 Test Item Value Reference Range Interpretation Comments Hgb (test code = Hgb) 9.8 14.0-18.0 [facility]cosSpvrvywGBFCIVZSTR5736-16-30 09:50:00 Test Item Value Reference Range Interpretation Comments RBC (test code = RBC) 3.48 4.70-6.10 [facility]cosVcihrvuPHNCSZFBOK2219-06-93 09:50:00 Test Item Value Reference Range Interpretation Comments Lymphocytes # (test code = Lymphocytes 2.0 1.0-5.5 #) [facility]cosWssxiwbPBHDDZRYXH3386-61-48 09:50:00 Test Item Value Reference Range Interpretation Comments Segs (test code = Segs) 76.1 45.0-75.0 [facility]cosDbbtidmYQAFWMZHXP6238-98-00 09:50:00 Test Item Value Reference Range Interpretation Comments Eosinophils (test code = 0.1 See_Comment [A utomated message] The Eosinophils) system which ge nerated this result tra nsmitted reference range : <=4.0. The reference r lou[place] was not used to int erpret this result as normal/abnormal . [facility]cosOqaadlpNVQPUZYPSN2339-42-45 09:50:00 Test Item Value Reference Range Interpretation Comments Monocytes (test code = Monocytes) 12.7 2.0-12.0 [facility]cosAqgmsqpTRSVARREQV1698-27-90 09:50:00 Test Item Value Reference Range Interpretation Comments Segs-Bands # (test code = Segs-Bands #) 14.2 1.5-8.1 [facility]cosJrdgyfqDBHUWJUYHA9390-86-80 09:50:00 Test Item Value Reference Range Interpretation Comments Basophils (test code = 0.5 See_Comment [Aut omated message] The Basophils) system which ge nerated this result tra nsmitted reference range : <=1.0. The reference r [place] was not used to int erpret this result as normal/abnormal . [facility]cosYngnaqfJJYABACNPC1982-89-51 09:50:00 Test Item Value Reference Range Interpretation Comments Lymphocytes (test code = Lymphocytes) 10.6 20.0-40.0 [facility]cosHifqegwNZEGYDMSGS3978-45-31 09:50:00 Test Item Value Reference Range Interpretation Comments Basophils # (test code 0.1 See_Comment [Aut omated message] The = Basophils #) system which generated this result tra nsmitted reference range : <=0.2. The reference r [place] was not used to int erpret this result as normal/abnormal . [facility]cosXhlbvvqPKCFQKHSQB8037-68-10 09:50:00 Test Item Value Reference Range Interpretation Comments Monocytes # (test code 2.4 See_Comment [Aut omated message] The = Monocytes #) system which generated this result tra nsmitted reference range : <=0.8. The reference r [place] was not used to int erpret this result as normal/abnormal . [facility]2017-04-03 09:50:00 Test Item Value Reference Range Interpretation Comments Magnesium Lvl (test code = Magnesium 2.4 1.8-2.4 Lvl) [facility]cosQgmzcseBXAQLSJJLS1773-11-90 09:50:00 Test Item Value Reference Range Interpretation Comments WBC (test code = WBC) 18.6 3.7-10.4 [facility]cosMlmeqqqEIOOWXYJIH8206-91-29 09:50:00 Test Item Value Reference Range Interpretation Comments RDW (test code = RDW) 14.7 11.5-14.5 [facility]cosIubslyxDKIMRGKRTC5633-26-73 09:50:00 Test Item Value Reference Range Interpretation Comments MCHC (test code = MCHC) 33.1 32.0-36.0 [facility]cosIgsqifsKEHLFZKKDX5167-27-11 09:50:00 Test Item Value Reference Range Interpretation Comments Hct (test code = Hct) 29.5 42.0-54.0 [facility]cosMjavksjBXNJUZGUCV5267-35-31 09:50:00 Test Item Value Reference Range Interpretation Comments MCH (test code = MCH) 28.1 pg 27.0-31.0 [facility]DorxfuzZJLOSHOPLW1717-16-96 09:50:00 Test Item Value Reference Range Interpretation Comments MCV (test code = MCV) 84.7 80.0-94.0 [facility]cosBlvbheoYQHGWOEHVF8769-58-90 09:50:00 Test Item Value Reference Range Interpretation Comments MPV (test code = MPV) 9.7 7.4-10.4 [facility]cosZyryqhpQMIMANGOYJ6522-21-35 09:50:00 Test Item Value Reference Range Interpretation Comments Platelet (test code = Platelet) 118 133-450 [facility]cosKwzpqdfQRWQMYGHSH9373-55-02 09:50:00 Test Item Value Reference Range Interpretation Comments Hgb (test code = Hgb) 9.8 14.0-18.0 [facility]cosJucbhxnJJAIJFWQKC3108-13-15 09:50:00 Test Item Value Reference Range Interpretation Comments RBC (test code = RBC) 3.48 4.70-6.10 [facility]cosMbrdygwLDGNRZLWNU5904-98-45 09:50:00 Test Item Value Reference Range Interpretation Comments Lymphocytes # (test code = Lymphocytes 2.0 1.0-5.5 #) [facility]cosHbbkorqCHCEPLGHAP8517-44-06 09:50:00 Test Item Value Reference Range Interpretation Comments Segs (test code = Segs) 76.1 45.0-75.0 [facility]cosWatkqalGJHDYJIZEB5673-15-35 09:50:00 Test Item Value Reference Range Interpretation Comments Eosinophils (test code = 0.1 See_Comment [A utomated message] The Eosinophils) system which ge nerated this result tra nsmitted reference range : <=4.0. The reference r lou[place] was not used to int erpret this result as normal/abnormal . [facility]cosPncwgbwARDSRKLBUT0569-86-29 09:50:00 Test Item Value Reference Range Interpretation Comments Monocytes (test code = Monocytes) 12.7 2.0-12.0 [facility]cosFdcfyaeHVUTHLSBVF8858-96-41 09:50:00 Test Item Value Reference Range Interpretation Comments Segs-Bands # (test code = Segs-Bands #) 14.2 1.5-8.1 [facility]cosWuizpnmDKMMKZCPAR4744-83-23 09:50:00 Test Item Value Reference Range Interpretation Comments Basophils (test code = 0.5 See_Comment [Aut omated message] The Basophils) system which ge nerated this result tra nsmitted reference range : <=1.0. The reference r louis was not used to int erpret this result as normal/abnormal . [facility]cosRauchrbVZQZBKSMUH4212-35-05 09:50:00 Test Item Value Reference Range Interpretation Comments Lymphocytes (test code = Lymphocytes) 10.6 20.0-40.0 [facility]cosYlaoqrnTMAECAZTOS6441-82-78 09:50:00 Test Item Value Reference Range Interpretation Comments Basophils # (test code 0.1 See_Comment [Aut omated message] The = Basophils #) system which generated this result tra nsmitted reference range : <=0.2. The reference r lou[place] was not used to int erpret this result as normal/abnormal . [facility]cosCkzzjopCCRHVGMENO7963-38-97 09:50:00 Test Item Value Reference Range Interpretation Comments Monocytes # (test code 2.4 See_Comment [Aut omated message] The = Monocytes #) system which generated this result tra nsmitted reference range : <=0.8. The reference r louis was not used to int erpret this result as normal/abnormal . [facility] [id number] 08:42:00 Test Item Value Reference Range Interpretation Comments Phosphorus (test code = Phosphorus) 2.0 2.5-4.5 [facility]cosLogoqxdDZDOGYLSTH3127-25-64 08:42:00 Test Item Value Reference Range Interpretation Comments Eosinophils # (test code 0.0 See_Comment [A utomated message] The = Eosinophils #) system whic h generated this result tra nsmitted reference range : <=0.5. The reference r louis was not used to int erpret this result as normal/abnormal . [facility]cosDqwuywvAESKMLDFML3688-08-72 08:42:00 Test Item Value Reference Range Interpretation Comments Basophils # (test code 0.0 See_Comment [Aut omated message] The = Basophils #) system which generated this result tra nsmitted reference range : <=0.2. The reference r lou[place] was not used to int erpret this result as normal/abnormal . [facility] [id number] 08:42:00 Test Item Value Reference Range Interpretation Comments Ca Ion WB (test code = Ca Ion WB) 1.11 1.05-1.25 [facility]2017-04-02 08:42:00 Test Item Value Reference Range Interpretation Comments Ca Norm WB (test code = Ca Norm WB) 1.11 1.05-1.25 [facility]2017-04-02 08:42:00 Test Item Value Reference Range Interpretation Comments Hgb A1C (test code = Hgb A1C) 6.4 [facility]2017-04-02 08:42:00 Test Item Value Reference Range Interpretation Comments Phosphorus (test code = Phosphorus) 2.0 2.5-4.5 [facility]cosPnxaihdLMKUFUXJHR7447-76-74 08:42:00 Test Item Value Reference Range Interpretation Comments Eosinophils # (test code 0.0 See_Comment [A utomated message] The = Eosinophils #) system whic h generated this result tra nsmitted reference range : <=0.5. The reference r louis was not used to int erpret this result as normal/abnormal . [facility]cosNfkomdyYJFIKHDXRO9953-79-42 08:42:00 Test Item Value Reference Range Interpretation Comments Basophils # (test code 0.0 See_Comment [Aut omated message] The = Basophils #) system which generated this result tra nsmitted reference range : <=0.2. The reference r louis was not used to int erpret this result as normal/abnormal . [facility]2017-04-02 08:42:00 Test Item Value Reference Range Interpretation Comments Ca Ion WB (test code = Ca Ion WB) 1.11 1.05-1.25 [facility]2017-04-02 08:42:00 Test Item Value Reference Range Interpretation Comments Ca Norm WB (test code = Ca Norm WB) 1.11 1.05-1.25 [facility]2017-04-02 08:42:00 Test Item Value Reference Range Interpretation Comments Hgb A1C (test code = Hgb A1C) 6.4 [facility]2017-04-01 07:28:00 Test Item Value Reference Range Interpretation Comments Phosphorus (test code = Phosphorus) 1.6 2.5-4.5 [facility]cosJzahoicVMVQZFUXKB7562-85-36 07:28:00 Test Item Value Reference Range Interpretation Comments RBC Morph (test code = Normal (4/1/17 2:28 AM) RBC Morph) [facility]cosByklepyMYUSMAEJRP4035-63-67 07:28:00 Test Item Value Reference Range Interpretation Comments Plt Morph (test code = Normal (06/25/16 2:28 AM) Plt Morph) [facility]2017-04-01 07:28:00 Test Item Value Reference Range Interpretation Comments Ca Norm WB (test code = Ca Norm WB) 1.06 1.05-1.25 [facility]2017-04-01 07:28:00 Test Item Value Reference Range Interpretation Comments Ca Ion WB (test code = Ca Ion WB) 1.09 1.05-1.25 [facility]2017-04-01 07:28:00 Test Item Value Reference Range Interpretation Comments Phosphorus (test code = Phosphorus) 1.6 2.5-4.5 [facility]cosTtguyeyMGNUOTTFJV6397-41-65 07:28:00 Test Item Value Reference Range Interpretation Comments RBC Morph (test code = Normal (06/25/16 2:28 AM) RBC Morph) [facility]cosDsqbvkoXRQKLJPJWU5523-81-83 07:28:00 Test Item Value Reference Range Interpretation Comments Plt Morph (test code = Normal (06/25/16 2:28 AM) Plt Morph) [facility]2017-04-01 07:28:00 Test Item Value Reference Range Interpretation Comments Ca Norm WB (test code = Ca Norm WB) 1.06 1.05-1.25 [facility]2017-04-01 07:28:00 Test Item Value Reference Range Interpretation Comments Ca Ion WB (test code = Ca Ion WB) 1.09 1.05-1.25 [facility]cosGivbaaeCWLJJISWWJ6279-78-81 23:42:00 Test Item Value Reference Range Interpretation Comments POC Hematocrit (test code = POC 34.0 42.0-54.0 Hematocrit) [facility]cosEetalqvTDDQVCTNUG3520-15-34 23:42:00 Test Item Value Reference Range Interpretation Comments POC Hemoglobin (test code = POC 11.6 14.0-18.0 Hemoglobin) [facility]cosUikhujgRLVPOLUAEM1523-60-75 23:42:00 Test Item Value Reference Range Interpretation Comments POC Ion Ca (test code = POC Ion Ca) 1.09 1.05-1.25 [place] [address]-03-31 23:42:00 Test Item Value Reference Range Interpretation Comments POC Potassium (test code = POC 4.4 3.5-5.1 Potassium) [facility]cosTjcuapsOJSGULJHNK0939-74-04 23:42:00 Test Item Value Reference Range Interpretation Comments POC Sodium (test code = POC Sodium) 143 135-145 [place] [address]-03-31 23:42:00 Test Item Value Reference Range Interpretation Comments POC Hematocrit (test code = POC 34.0 42.0-54.0 Hematocrit) [facility]cosIicquqdWKMORZFEJR4290-28-37 23:42:00 Test Item Value Reference Range Interpretation Comments POC Hemoglobin (test code = POC 11.6 14.0-18.0 Hemoglobin) [facility]cosRdrzdjhAQPFZHYLTK7785-94-43 23:42:00 Test Item Value Reference Range Interpretation Comments POC Ion Ca (test code = POC Ion Ca) 1.09 1.05-1.25 [place] [address]-03-31 23:42:00 Test Item Value Reference Range Interpretation Comments POC Potassium (test code = POC 4.4 3.5-5.1 Potassium) [place] 268807-03-31 23:42:00 Test Item Value Reference Range Interpretation Comments POC Sodium (test code = POC Sodium) 143 135-145 [facility]2017-03-31 23:11:00 Test Item Value Reference Range Interpretation Comments A/G Ratio (test code = A/G Ratio) 1.4 0.7-1.6 [place] 085737-03-31 23:11:00 Test Item Value Reference Range Interpretation Comments Globulin (test code = Globulin) 2.1 2.7-4.2 [place] 085737-03-31 23:11:00 Test Item Value Reference Range Interpretation Comments Bili Indirect (test 0.4 See_Comment [Automa jigar message] The code = Bili Indirect) system which generated this result tra nsmitted reference range : <=1.0. The reference r louis was not used to int erpret this result as normal/abnormal . [facility]2017-03-31 23:11:00 Test Item Value Reference Range Interpretation Comments Bili Direct (test code 0.2 See_Comment [Aut omated message] The = Bili Direct) system which generated this result tra nsmitted reference range : <=0.3. The reference r louis was not used to int erpret this result as sonido l/abnormal. [facility]2017-03-31 23:11:00 Test Item Value Reference Range Interpretation Comments Bili Total (test code = Bili Total) 0.6 0.2-1.3 [place] 085737-03-31 23:11:00 Test Item Value Reference Range Interpretation Comments Alk Phos (test code = Alk Phos) 38 39-136 [place] [address]-03-31 23:11:00 Test Item Value Reference Range Interpretation Comments AST (test code = AST) 42 See_Comment [Auto mated message] The system which ge nerated this result transmit jigar reference range : <=37. The reference range was not used to interpr et this result as sonido l/abnormal. [facility]2017-03-31 23:11:00 Test Item Value Reference Range Interpretation Comments ALT (test code = ALT) 51 See_Comment [Auto mated message] The system which ge nerated this result transmit jigar reference range : <=65. The reference range was not used to interpr et this result as sonido l/abnormal. [facility]2017-03-31 23:11:00 Test Item Value Reference Range Interpretation Comments Albumin Lvl (test code = Albumin Lvl) 2.9 3.5-5.0 [place] 085737-03-31 23:11:00 Test Item Value Reference Range Interpretation Comments Total Protein (test code = Total 5.0 6.4-8.4 Protein) [facility]2017-03-31 23:11:00 Test Item Value Reference Range Interpretation Comments Phosphorus (test code = Phosphorus) 2.3 2.5-4.5 [facility]cosJcwxfgyAHCMPISMNS9418-91-84 23:11:00 Test Item Value Reference Range Interpretation Comments FSP (test code = FSP) <5 ug/ml [facility]cosWfvymsgLPUUBFZADY2948-66-36 23:11:00 Test Item Value Reference Range Interpretation Comments Fibrinogen Lvl (test code = Fibrinogen 206 230-510 Lvl) [facility]cosGimawtyVGDPKHTTVB2253-01-02 23:11:00 Test Item Value Reference Range Interpretation Comments PTT (test code = PTT) 34.9 s 22.9-35.8 [facility]cosReaidccFBHSHUVGXM0696-57-05 23:11:00 Test Item Value Reference Range Interpretation Comments INR (test code = INR) 1.27 0.85-1.17 [facility]cosHzhuuuxARFSBMHWFV3788-47-23 23:11:00 Test Item Value Reference Range Interpretation Comments PT (test code = PT) 16.2 s 12.0-14.7 [facility]2017-03-31 23:11:00 Test Item Value Reference Range Interpretation Comments Ca Norm WB (test code = Ca Norm WB) 1.09 1.05-1.25 [facility]2017-03-31 23:11:00 Test Item Value Reference Range Interpretation Comments Ca Ion WB (test code = Ca Ion WB) 1.10 1.05-1.25 [place] 085737-03-31 23:11:00 Test Item Value Reference Range Interpretation Comments A/G Ratio (test code = A/G Ratio) 1.4 0.7-1.6 [facility]2017-03-31 23:11:00 Test Item Value Reference Range Interpretation Comments Globulin (test code = Globulin) 2.1 2.7-4.2 [facility]2017-03-31 23:11:00 Test Item Value Reference Range Interpretation Comments Bili Indirect (test 0.4 See_Comment [Automa jigar message] The code = Bili Indirect) system which generated this result tra nsmitted reference range : <=1.0. The reference r louis was not used to int erpret this result as normal/abnormal . [facility]2017-03-31 23:11:00 Test Item Value Reference Range Interpretation Comments Bili Direct (test code 0.2 See_Comment [Aut omated message] The = Bili Direct) system which generated this result tra nsmitted reference range : <=0.3. The reference r louis was not used to int erpret this result as sonido l/abnormal. [facility]2017-03-31 23:11:00 Test Item Value Reference Range Interpretation Comments Bili Total (test code = Bili Total) 0.6 0.2-1.3 [facility]2017-03-31 23:11:00 Test Item Value Reference Range Interpretation Comments Alk Phos (test code = Alk Phos) 38 39-136 [facility] [id number] 23:11:00 Test Item Value Reference Range Interpretation Comments AST (test code = AST) 42 See_Comment [Auto mated message] The system which ge nerated this result transmit jigar reference range : <=37. The reference range was not used to interpr et this result as sonido l/abnormal. [facility]2017-03-31 23:11:00 Test Item Value Reference Range Interpretation Comments ALT (test code = ALT) 51 See_Comment [Auto mated message] The system which ge nerated this result transmit jigar reference range : <=65. The reference range was not used to interpr et this result as sonido l/abnormal. [facility]2017-03-31 23:11:00 Test Item Value Reference Range Interpretation Comments Albumin Lvl (test code = Albumin Lvl) 2.9 3.5-5.0 [facility]2017-03-31 23:11:00 Test Item Value Reference Range Interpretation Comments Total Protein (test code = Total 5.0 6.4-8.4 Protein) [facility]2017-03-31 23:11:00 Test Item Value Reference Range Interpretation Comments Phosphorus (test code = Phosphorus) 2.3 2.5-4.5 [facility]cosHynnvelMPNWHUNDEB9590-20-46 23:11:00 Test Item Value Reference Range Interpretation Comments FSP (test code = FSP) <5 ug/ml [facility]cosPqgllmpFKLDWHZORJ9016-09-71 23:11:00 Test Item Value Reference Range Interpretation Comments Fibrinogen Lvl (test code = Fibrinogen 206 230-510 Lvl) [facility]cosNdkxzicCNWZLLVYVI7975-79-32 23:11:00 Test Item Value Reference Range Interpretation Comments PTT (test code = PTT) 34.9 s 22.9-35.8 [facility]cosOaulhaqGFBISLHULF7242-91-31 23:11:00 Test Item Value Reference Range Interpretation Comments INR (test code = INR) 1.27 0.85-1.17 [facility]cosClvxkocUMGTOUEQCD3360-95-17 23:11:00 Test Item Value Reference Range Interpretation Comments PT (test code = PT) 16.2 s 12.0-14.7 [facility] [id number] 23:11:00 Test Item Value Reference Range Interpretation Comments Ca Norm WB (test code = Ca Norm WB) 1.09 1.05-1.25 [facility]2017-03-31 23:11:00 Test Item Value Reference Range Interpretation Comments Ca Ion WB (test code = Ca Ion WB) 1.10 1.05-1.25 [facility]cosEdjzvkfWSFUTFXHMU7506-03-94 22:13:00 Test Item Value Reference Range Interpretation Comments Fibrinogen Lvl (test code = Fibrinogen 196 230-510 Lvl) [facility]cosAdmvfqnQSOQKTVJZQ6109-73-96 22:13:00 Test Item Value Reference Range Interpretation Comments PTT (test code = PTT) 32.8 s 22.9-35.8 [facility]cosAzefboaPXVFNUSAHH6931-77-08 22:13:00 Test Item Value Reference Range Interpretation Comments PT (test code = PT) 16.6 s 12.0-14.7 [facility]cosSkqrngdFIFAAYMCCB2070-32-00 22:13:00 Test Item Value Reference Range Interpretation Comments INR (test code = INR) 1.32 0.85-1.17 [facility]cosIudiuzqSQMFZDDXXR2151-05-93 22:13:00 Test Item Value Reference Range Interpretation Comments Fibrinogen Lvl (test code = Fibrinogen 196 230-510 Lvl) [facility]cosBjtscoqSLWNRMHALA0660-26-40 22:13:00 Test Item Value Reference Range Interpretation Comments PTT (test code = PTT) 32.8 s 22.9-35.8 [facility]cosFlytiiaWTNRBZAIJY6630-84-50 22:13:00 Test Item Value Reference Range Interpretation Comments PT (test code = PT) 16.6 s 12.0-14.7 [facility]cosNlywuwtBQWKUUYZGO8852-42-65 22:13:00 Test Item Value Reference Range Interpretation Comments INR (test code = INR) 1.32 0.85-1.17 [facility] [employer] [id number] 09:15:00 Test Item Value Reference Range Interpretation Comments Antibody Scrn (test Negative (06/24/16 4:15 code = Antibody Scrn) AM) [facility] [employer] [id number] 09:15:00 Test Item Value Reference Range Interpretation Comments ABO/Rh (test code = ABO/Rh) A POS [facility] [employer] [id number] 09:15:00 Test Item Value Reference Range Interpretation Comments Antibody Scrn (test Negative (06/24/16 4:15 code = Antibody Scrn) AM) [facility] [id number] 09:15:00 Test Item Value Reference Range Interpretation Comments ABO/Rh (test code = ABO/Rh) A POS [facility] [id number] 09:00:00 Test Item Value Reference Range Interpretation Comments Platelet product (test Product available code = Platelet (06/24/16 4:00 AM) product) [facility] [id number] 09:00:00 Test Item Value Reference Range Interpretation Comments FFP product (test code Product available = FFP product) (06/24/16 4:00 AM) [facility] [id number] 09:00:00 Test Item Value Reference Range Interpretation Comments Cryo product (test Product available code = Cryo product) (06/24/16 4:00 AM) [facility] [id number] 09:00:00 Test Item Value Reference Range Interpretation Comments RBC product (test code Product available = RBC product) (06/24/16 4:00 AM) [facility] [id number] 09:00:00 Test Item Value Reference Range Interpretation Comments Platelet product (test Product available code = Platelet (06/24/16 4:00 AM) product) [facility] [id number] 09:00:00 Test Item Value Reference Range Interpretation Comments FFP product (test code Product available = FFP product) (06/24/16 4:00 AM) [facility] [id number] 09:00:00 Test Item Value Reference Range Interpretation Comments Cryo product (test Product available code = Cryo product) (06/24/16 4:00 AM) [facility] [id number] 09:00:00 Test Item Value Reference Range Interpretation Comments RBC product (test code Product available = RBC product) (06/24/16 4:00 AM) [facility]kjatTINKHLHTWA3216[facility]35-33 10:18:00 Test Item Value Reference Range Interpretation Comments INR (test code = INR) 1.05 0.85-1.17 [facility]cosZrmwcunMMGSLXXLBR0926-37-91 10:18:00 Test Item Value Reference Range Interpretation Comments PTT (test code = PTT) 37.0 s 22.9-35.8 [facility]cosWwgyleyZHHADQDHFB4448-25-76 10:18:00 Test Item Value Reference Range Interpretation Comments PT (test code = PT) 13.9 s 12.0-14.7 [facility]cosEhkvjgwRYOZHEDDMU2572-91-87 10:18:00 Test Item Value Reference Range Interpretation Comments INR (test code = INR) 1.05 0.85-1.17 [facility]cosAesvtcgISFDNBPCZZ1639-24-35 10:18:00 Test Item Value Reference Range Interpretation Comments PTT (test code = PTT) 37.0 s 22.9-35.8 [facility]cosIkodxgnELIPITQIWP4074-73-08 10:18:00 Test Item Value Reference Range Interpretation Comments PT (test code = PT) 13.9 s 12.0-14.7 [facility] [id number] 10:18:00 Test Item Value Reference Range Interpretation Comments ABO/Rh (test code = ABO/Rh) A POS [facility] [id number] 10:18:00 Test Item Value Reference Range Interpretation Comments Antibody Scrn (test Negative (06/20/16 5:18 code = Antibody Scrn) AM) [facility]cosPqtxvfuHLJBFISVEB7401-36-69 10:18:00 Test Item Value Reference Range Interpretation Comments Plt Morph (test code = Normal (06/20/16 5:18 Plt Morph) AM) [facility]cosAdegheqKPIYMXCBYE2397-05-09 10:18:00 Test Item Value Reference Range Interpretation Comments RBC Morph (test code = Normal (06/20/16 5:18 RBC Morph) AM) [facility] [id number] 10:18:00 Test Item Value Reference Range Interpretation Comments HCV RNA Log10 (test code = HCV RNA 6.9 Log10) [facility]2017-03-27 10:18:00 Test Item Value Reference Range Interpretation Comments HCV RNA VirLoad (test code = HCV RNA [id number] VirLoad) [facility] [id number] 10:18:00 Test Item Value Reference Range Interpretation Comments ABO/Rh (test code = ABO/Rh) A POS [facility] [id number] 10:18:00 Test Item Value Reference Range Interpretation Comments Antibody Scrn (test Negative (06/20/16 5:18 code = Antibody Scrn) AM) [facility] HospitalThgakmqHCHFWLSLEE3986-62-48 10:18:00 Test Item Value Reference Range Interpretation Comments Plt Morph (test code = Normal (06/20/16 5:18 Plt Morph) AM) [facility] HospitalBpmgaddSQGTFPLDXI1105-36-22 10:18:00 Test Item Value Reference Range Interpretation Comments RBC Morph (test code = Normal (06/20/16 5:18 RBC Morph) AM) [facility] [id number] 10:18:00 Test Item Value Reference Range Interpretation Comments HCV RNA Log10 (test code = HCV RNA 6.9 Log10) [facility] [id number] 10:18:00 Test Item Value Reference Range Interpretation Comments HCV RNA VirLoad (test code = HCV RNA [id number] VirLoad) [facility] [id number] 10:00:00 Test Item Value Reference Range Interpretation Comments FFP product (test code Product available = FFP product) (06/20/16 5:00 AM) [facility] [id number] 10:00:00 Test Item Value Reference Range Interpretation Comments Cryo product (test Product available code = Cryo product) (06/20/16 5:00 AM) [facility] [id number] 10:00:00 Test Item Value Reference Range Interpretation Comments RBC product (test code Product available = RBC product) (06/20/16 5:00 AM) [facility] [id number] 10:00:00 Test Item Value Reference Range Interpretation Comments Platelet product (test Product available code = Platelet (06/20/16 5:00 AM) product) [facility] BANK [id number] 10:00:00 Test Item Value Reference Range Interpretation Comments FFP product (test code Product available = FFP product) (06/20/16 5:00 AM) [facility] [id number] 10:00:00 Test Item Value Reference Range Interpretation Comments Cryo product (test Product available code = Cryo product) (06/20/16 5:00 AM) [facility] [id number] 10:00:00 Test Item Value Reference Range Interpretation Comments RBC product (test code Product available = RBC product) (06/20/16 5:00 AM) [facility] [id number] 10:00:00 Test Item Value Reference Range Interpretation Comments Platelet product (test Product available code = Platelet (06/20/16 5:00 AM) product) [facility] [id number] 10:33:00 Test Item Value Reference Range Interpretation Comments MRSA by PCR (test Negative (06/18/16 5:33 code = MRSA by PCR) AM) [facility] [id number] 10:33:00 Test Item Value Reference Range Interpretation Comments B/C Ratio (test code = B/C Ratio) 18 -25 [facility] [id number] 10:33:00 Test Item Value Reference Range Interpretation Comments Globulin (test code = Globulin) 3.9 2.7-4.2 [facility] [id number] 10:33:00 Test Item Value Reference Range Interpretation Comments A/G Ratio (test code = A/G Ratio) 0.8 0.7-1.6 [facility] [id number] 10:33:00 Test Item Value Reference Range Interpretation Comments ALT (test code = ALT) 67 See_Comment [Auto mated message] The system which ge nerated this result transmit jigar reference range : <=65. The reference range was not used to interpr et this result as sonido l/abnormal. [facility] [id number] 10:33:00 Test Item Value Reference Range Interpretation Comments AST (test code = AST) 74 See_Comment [Auto mated message] The system which ge nerated this result transmit jigar reference range : <=37. The reference range was not used to interpr et this result as sonido l/abnormal. [facility] [id number] 10:33:00 Test Item Value Reference Range Interpretation Comments Total Protein (test code = Total 7.1 6.4-8.4 Protein) [facility] [id number] 10:33:00 Test Item Value Reference Range Interpretation Comments Albumin Lvl (test code = Albumin Lvl) 3.2 3.5-5.0 [facility] [id number] 10:33:00 Test Item Value Reference Range Interpretation Comments Alk Phos (test code = Alk Phos) 58 39-136 [facility] [id number] 10:33:00 Test Item Value Reference Range Interpretation Comments Bili Total (test code = Bili Total) 0.4 0.2-1.3 [facility] [id number] 10:33:00 Test Item Value Reference Range Interpretation Comments CHD Risk (test code = CHD Risk) 4.04 4.00-7.30 [facility] [id number] 10:33:00 Test Item Value Reference Range Interpretation Comments VLDL (test code = VLDL) 16 [facility] [id number] 10:33:00 Test Item Value Reference Range Interpretation Comments LDL (Calculated) (test code = LDL 121 (Calculated)) [facility] [id number] 10:33:00 Test Item Value Reference Range Interpretation Comments HDL (test code = HDL) 45 [facility] [id number] 10:33:00 Test Item Value Reference Range Interpretation Comments Trig (test code = Trig) 82 [facility] [id number] 10:33:00 Test Item Value Reference Range Interpretation Comments Chol (test code = Chol) 182 [facility] [id number] 10:33:00 Test Item Value Reference Range Interpretation Comments Hgb A1C (test code = Hgb A1C) 6.4 [facility] AND [id number] 10:33:00 Test Item Value Reference Range Interpretation Comments UA Urobilinogen (test code = UA no gt 0.1-1.0 Urobilinogen) [facility] [id number] 10:33:00 Test Item Value Reference Range Interpretation Comments UA Sq Epi (test code = UA Sq Epi) None Seen [facility] AND [id number] 10:33:00 Test Item Value Reference Range Interpretation Comments UA RBC (test code = no gt See_Comment [Automa jigar message] The UA RBC) system which ge nerated this result transmit jigar reference range : <=2. The reference range was not used to interpr et this result as sonido l/abnormal. [facility] AND [id number] 10:33:00 Test Item Value Reference Range Interpretation Comments UA Bili (test code = Negative *NA*(06/18/16 UA Bili) 5:33 AM) [facility] AND [id number] 10:33:00 Test Item Value Reference Range Interpretation Comments UA Ketones (test code = UA Negative mg/dL Ketones) [facility] AND [id number] 10:33:00 Test Item Value Reference Range Interpretation Comments UA Glucose (test code = UA Negative mg/dL Glucose) [facility] AND [id number] 10:33:00 Test Item Value Reference Range Interpretation Comments UA WBC (test code = no gt See_Comment [Automa jigar message] The UA WBC) system which ge nerated this result transmit jigar reference range : <=5. The reference range was not used to interpr et this result as sonido l/abnormal. [facility] AND [id number] 10:33:00 Test Item Value Reference Range Interpretation Comments UA Leuk Est (test Negative (06/18/16 5:33 code = UA Leuk Est) AM) [facility] AND [id number] 10:33:00 Test Item Value Reference Range Interpretation Comments UA Nitrite (test code Negative (06/18/16 5:33 = UA Nitrite) AM) [facility] AND [id number] 10:33:00 Test Item Value Reference Range Interpretation Comments UA Blood (test code = Negative (06/18/16 5:33 UA Blood) AM) [facility] AND [id number] 10:33:00 Test Item Value Reference Range Interpretation Comments UA Protein (test code = UA Negative mg/dL Protein) [facility] AND [id number] 10:33:00 Test Item Value Reference Range Interpretation Comments UA Color (test code = Light Yellow UA Color) *NA*(06/18/16 5:33 AM) [facility] AND [id number] 10:33:00 Test Item Value Reference Range Interpretation Comments UA Turbidity (test code = Clear (06/18/16 5:33 UA Turbidity) AM) [facility] AND [id number] 10:33:00 Test Item Value Reference Range Interpretation Comments UA pH (test code = UA pH) 5.0 5.0-8.0 [facility] AND [id number] 10:33:00 Test Item Value Reference Range Interpretation Comments UA Spec Grav (test code = UA Spec Grav) 1.008 [facility] - [id number] 10:33:00 Test Item Value Reference Range Interpretation Comments MRSA by PCR (test Negative (06/18/16 5:33 code = MRSA by PCR) AM) [facility] [id number] 10:33:00 Test Item Value Reference Range Interpretation Comments B/C Ratio (test code = B/C Ratio) 18 - [facility] [id number] 10:33:00 Test Item Value Reference Range Interpretation Comments Globulin (test code = Globulin) 3.9 2.7-4.2 [facility]2017-03-25 10:33:00 Test Item Value Reference Range Interpretation Comments A/G Ratio (test code = A/G Ratio) 0.8 0.7-1.6 [facility]2017-03-25 10:33:00 Test Item Value Reference Range Interpretation Comments ALT (test code = ALT) 67 See_Comment [Auto mated message] The system which ge nerated this result transmit jigar reference range : <=65. The reference range was not used to interpr et this result as sonido l/abnormal. [facility]2017-03-25 10:33:00 Test Item Value Reference Range Interpretation Comments AST (test code = AST) 74 See_Comment [Auto mated message] The system which ge nerated this result transmit jigar reference range : <=37. The reference range was not used to interpr et this result as sonido l/abnormal. [facility] [id number] 10:33:00 Test Item Value Reference Range Interpretation Comments Total Protein (test code = Total 7.1 6.4-8.4 Protein) [facility]2017-03-25 10:33:00 Test Item Value Reference Range Interpretation Comments Albumin Lvl (test code = Albumin Lvl) 3.2 3.5-5.0 [facility]2017-03-25 10:33:00 Test Item Value Reference Range Interpretation Comments Alk Phos (test code = Alk Phos) 58 39-136 [facility]2017-03-25 10:33:00 Test Item Value Reference Range Interpretation Comments Bili Total (test code = Bili Total) 0.4 0.2-1.3 [facility] [id number] 10:33:00 Test Item Value Reference Range Interpretation Comments CHD Risk (test code = CHD Risk) 4.04 4.00-7.30 [facility] [id number] 10:33:00 Test Item Value Reference Range Interpretation Comments VLDL (test code = VLDL) 16 [facility] [id number] 10:33:00 Test Item Value Reference Range Interpretation Comments LDL (Calculated) (test code = LDL 121 (Calculated)) [facility] [id number] 10:33:00 Test Item Value Reference Range Interpretation Comments HDL (test code = HDL) 45 [facility] [id number] 10:33:00 Test Item Value Reference Range Interpretation Comments Trig (test code = Trig) 82 [facility] [id number] 10:33:00 Test Item Value Reference Range Interpretation Comments Chol (test code = Chol) 182 [facility] [id number] 10:33:00 Test Item Value Reference Range Interpretation Comments Hgb A1C (test code = Hgb A1C) 6.4 [facility] [id number] 10:33:00 Test Item Value Reference Range Interpretation Comments UA Urobilinogen (test code = UA no gt 0.1-1.0 Urobilinogen) [facility] [id number] 10:33:00 Test Item Value Reference Range Interpretation Comments UA Sq Epi (test code = UA Sq Epi) None [facility]en [facility] [id number] 10:33:00 Test Item Value Reference Range Interpretation Comments UA RBC (test code = no gt See_Comment [Automa jigar message] The UA RBC) system which ge nerated this result transmit jigar reference range : <=2. The reference range was not used to interpr et this result as sonido l/abnormal. [facility] [id number] 10:33:00 Test Item Value Reference Range Interpretation Comments UA Bili (test code = Negative *NA*(06/18/16 UA Bili) 5:33 AM) [facility] [id number] 10:33:00 Test Item Value Reference Range Interpretation Comments UA Ketones (test code = UA Negative mg/dL Ketones) [facility] AND [id number] 10:33:00 Test Item Value Reference Range Interpretation Comments UA Glucose (test code = UA Negative mg/dL Glucose) [facility] AND [id number] 10:33:00 Test Item Value Reference Range Interpretation Comments UA WBC (test code = no gt See_Comment [Automa jigar message] The UA WBC) system which ge nerated this result transmit jigar reference range : <=5. The reference range was not used to interpr et this result as sonido l/abnormal. [facility] AND [id number] 10:33:00 Test Item Value Reference Range Interpretation Comments UA Leuk Est (test Negative (06/18/16 5:33 code = UA Leuk Est) AM) [facility] AND [id number] 10:33:00 Test Item Value Reference Range Interpretation Comments UA Nitrite (test code Negative (06/18/16 5:33 = UA Nitrite) AM) [facility] AND [id number] 10:33:00 Test Item Value Reference Range Interpretation Comments UA Blood (test code = Negative (06/18/16 5:33 UA Blood) AM) [facility] AND [id number] 10:33:00 Test Item Value Reference Range Interpretation Comments UA Protein (test code = UA Negative mg/dL Protein) [facility] AND [id number] 10:33:00 Test Item Value Reference Range Interpretation Comments UA Color (test code = Light Yellow UA Color) *NA*(06/18/16 5:33 AM) [facility] AND [id number] 10:33:00 Test Item Value Reference Range Interpretation Comments UA Turbidity (test code = Clear (06/18/16 5:33 UA Turbidity) AM) [facility] AND [id number] 10:33:00 Test Item Value Reference Range Interpretation Comments UA pH (test code = UA pH) 5.0 5.0-8.0 [facility] AND [id number] 10:33:00 Test Item Value Reference Range Interpretation Comments UA Spec Grav (test code = UA Spec Grav) 1.008 [facility] AND [id number] 04:28:00 Test Item Value Reference Range Interpretation Comments UA Turbidity (test code = Clear (06/17/16 11:28 UA Turbidity) PM) [facility] AND [id number] 04:28:00 Test Item Value Reference Range Interpretation Comments UA pH (test code = UA pH) 6.0 5.0-8.0 [facility] AND [id number] 04:28:00 Test Item Value Reference Range Interpretation Comments UA Color (test code = Light Yellow UA Color) *NA*(06/17/16 11:28 PM) [facility] [id number] 04:28:00 Test Item Value Reference Range Interpretation Comments UA Spec Grav (test code = UA Spec Grav) 1.010 [facility] [id number] 04:28:00 Test Item Value Reference Range Interpretation Comments UA WBC (test code = 1 See_Comment [Automa jigar message] The UA WBC) system which ge nerated this result transmit jigar reference range : <=5. The reference range was not used to interpr et this result as sonido l/abnormal. [facility] AND [id number] 04:28:00 Test Item Value Reference Range Interpretation Comments UA Bacteria (test code = UA Occasional /HPF Bacteria) [facility] [id number] 04:28:00 Test Item Value Reference Range Interpretation Comments UA Glucose (test code = UA Negative mg/dL Glucose) [facility] [id number] 04:28:00 Test Item Value Reference Range Interpretation Comments UA Protein (test code = UA Negative mg/dL Protein) [facility] AND [id number] 04:28:00 Test Item Value Reference Range Interpretation Comments UA Urobilinogen (test code = UA no gt 0.1-1.0 Urobilinogen) [facility] [id number] 04:28:00 Test Item Value Reference Range Interpretation Comments UA Sq Epi (test code = UA Sq Epi) None Seen [facility] AND [id number] 04:28:00 Test Item Value Reference Range Interpretation Comments UA Leuk Est (test Negative (06/17/16 11:28 code = UA Leuk Est) PM) [facility] AND [id number] 04:28:00 Test Item Value Reference Range Interpretation Comments UA Nitrite (test code Negative (06/17/16 11:28 = UA Nitrite) PM) [facility] [id number] 04:28:00 Test Item Value Reference Range Interpretation Comments UA Blood (test code = Negative (06/17/16 11:28 UA Blood) PM) [facility] [id number] 04:28:00 Test Item Value Reference Range Interpretation Comments UA Bili (test code = Negative *NA*(06/17/16 UA Bili) 11:28 PM) [facility] AND [id number] 04:28:00 Test Item Value Reference Range Interpretation Comments UA Ketones (test code = UA Negative mg/dL Ketones) [facility] [id number] 04:28:00 Test Item Value Reference Range Interpretation Comments UA Turbidity (test code = Clear (06/17/16 11:28 UA Turbidity) PM) [facility] AND [id number] 04:28:00 Test Item Value Reference Range Interpretation Comments UA pH (test code = UA pH) 6.0 5.0-8.0 [facility] AND [id number] 04:28:00 Test Item Value Reference Range Interpretation Comments UA Color (test code = Light Yellow UA Color) *NA*(06/17/16 11:28 PM) [facility] AND [id number] 04:28:00 Test Item Value Reference Range Interpretation Comments UA Spec Grav (test code = UA Spec Grav) 1.010 [facility] AND [id number] 04:28:00 Test Item Value Reference Range Interpretation Comments UA WBC (test code = 1 See_Comment [Automa jigar message] The UA WBC) system which ge nerated this result transmit jigar reference range : <=5. The reference range was not used to interpr et this result as sonido l/abnormal. [facility] AND [id number] 04:28:00 Test Item Value Reference Range Interpretation Comments UA Bacteria (test code = UA Occasional /HPF Bacteria) [facility] AND [id number] 04:28:00 Test Item Value Reference Range Interpretation Comments UA Glucose (test code = UA Negative mg/dL Glucose) [facility] AND [id number] 04:28:00 Test Item Value Reference Range Interpretation Comments UA Protein (test code = UA Negative mg/dL Protein) [facility] AND [id number] 04:28:00 Test Item Value Reference Range Interpretation Comments UA Urobilinogen (test code = UA no gt 0.1-1.0 Urobilinogen) [facility] AND [id number] 04:28:00 Test Item Value Reference Range Interpretation Comments UA Sq Epi (test code = UA Sq Epi) None Seen [facility] AND [id number] 04:28:00 Test Item Value Reference Range Interpretation Comments UA Leuk Est (test Negative (06/17/16 11:28 code = UA Leuk Est) PM) [facility] AND [id number] 04:28:00 Test Item Value Reference Range Interpretation Comments UA Nitrite (test code Negative (06/17/16 11:28 = UA Nitrite) PM) [facility] AND [id number] 04:28:00 Test Item Value Reference Range Interpretation Comments UA Blood (test code = Negative (06/17/16 11:28 UA Blood) PM) [facility] AND [id number] 04:28:00 Test Item Value Reference Range Interpretation Comments UA Bili (test code = Negative *NA*(06/17/16 UA Bili) 11:28 PM) [facility] AND [id number] 04:28:00 Test Item Value Reference Range Interpretation Comments UA Ketones (test code = UA Negative mg/dL Ketones) [facility]IzdccivCEEPDW2713-61-40 09:20:00 Test Item Value Reference Range Interpretation Comments CHD Risk (test code = CHD Risk) 4.26 4.00-7.30 [facility] [id number] 09:20:00 Test Item Value Reference Range Interpretation Comments VLDL (test code = VLDL) 22 [facility] [id number] 09:20:00 Test Item Value Reference Range Interpretation Comments LDL (Calculated) (test code = LDL 118 (Calculated)) [facility] [id number] 09:20:00 Test Item Value Reference Range Interpretation Comments HDL (test code = HDL) 43 [facility] [id number] 09:20:00 Test Item Value Reference Range Interpretation Comments Chol (test code = Chol) 183 [facility] [id number] 09:20:00 Test Item Value Reference Range Interpretation Comments Trig (test code = Trig) 112 [facility] CenterJodjkngQEQQOJ3261-10-24 09:20:00 Test Item Value Reference Range Interpretation Comments CHD Risk (test code = CHD Risk) 4.26 4.00-7.30 [facility] [id number] 09:20:00 Test Item Value Reference Range Interpretation Comments VLDL (test code = VLDL) 22 [facility] [id number] 09:20:00 Test Item Value Reference Range Interpretation Comments LDL (Calculated) (test code = LDL 118 (Calculated)) [id number] 09:20:00 Test Item Value Reference Range Interpretation Comments HDL (test code = HDL) 43 [facility] [id number] 09:20:00 Test Item Value Reference Range Interpretation Comments Chol (test code = Chol) 183 [facility] SouthXjbcvieVTRNHK6699-17-24 09:20:00 Test Item Value Reference Range Interpretation Comments Trig (test code = Trig) 112 [facility] CenterRetail OptimizationCARCarrier Energy PartnersAC [id number] 00:19:00 Test Item Value Reference Range Interpretation Comments Total CK (test code = Total CK) 384 12-191 [facility] CenterCleengAC [id number] 00:19:00 Test Item Value Reference Range Interpretation Comments Troponin-I (test code 7.44 See_Comment [Auto mated message] The = Troponin-I) system which g enerated this result transmit jigar reference range : <=0.40. The reference r [place] was not used to interpr et this result as sonido l/abnormal. [facility] CenterRetail OptimizationCARDIAC [id number] 00:19:00 Test Item Value Reference Range Interpretation Comments CK MB Index (test 4.4 See_Comment [Automate d message] The code = CK MB Index) system w the [facility] generated this result transmit jigar reference range : <=2.5. The reference range was not used to interpr et this result as sonido l/abnormal. [facility] Responde AiCARDIAC [id number] 00:19:00 Test Item Value Reference Range Interpretation Comments CK MB (test code = CK MB) 17.0 0.5-3.6 [facility] [employer] TechnologyannCARDIAC [id number] 00:19:00 Test Item Value Reference Range Interpretation Comments Total CK (test code = Total CK) 384 [facility] MovinaryAC [id number] 00:19:00 Test Item Value Reference Range Interpretation Comments Troponin-I (test code 7.44 See_Comment [Auto mated message] The = Troponin-I) system which g enerated this result transmit jigar reference range : <=0.40. The reference r [place] was not used to interpr et this result as sonido l/abnormal. [facility] [employer]AC [id number] 00:19:00 Test Item Value Reference Range Interpretation Comments CK MB Index (test 4.4 See_Comment [Automate d message] The code = CK MB Index) system w [employer] generated this result transmit jigar reference range : <=2.5. The reference range was not used to interpr et this result as sonido l/abnormal. [facility] [employer] [id number] 00:19:00 Test Item Value Reference Range Interpretation Comments CK MB (test code = CK MB) 17.0 0.5-3.6 [facility] Mov[employer]AC [id number] 19:58:00 Test Item Value Reference Range Interpretation Comments CK MB Index (test 4.8 See_Comment [Automate d message] The code = CK MB Index) system w [employer] generated this result transmit jigar reference range : <=2.5. The reference range was not used to interpr et this result as sonido l/abnormal. [facility] [employer]AC [id number] 19:58:00 Test Item Value Reference Range Interpretation Comments Total CK (test code = Total CK) 412 [facility] [employer] [id number] 19:58:00 Test Item Value Reference Range Interpretation Comments CK MB (test code = CK MB) 19.8 0.5-3.6 [facility] [employer] TechnologyannCARCarrier Energy PartnersAC [id number] 19:58:00 Test Item Value Reference Range Interpretation Comments CK MB Index (test 4.8 See_Comment [Automate d message] The code = CK MB Index) system w [employer] generated this result transmit jigar reference range : <=2.5. The reference range was not used to interpr et this result as sonido l/abnormal. [facility] [employer]AC [id number] 19:58:00 Test Item Value Reference Range Interpretation Comments Total CK (test code = Total CK) 412 12-191 [facility] [employer] [id number] 19:58:00 Test Item Value Reference Range Interpretation Comments CK MB (test code = CK MB) 19.8 0.5-3.6 [facility] [employer] [id number] 19:56:00 Test Item Value Reference Range Interpretation Comments Troponin-I (test code 6.52 See_Comment [Auto mated message] The = Troponin-I) system which g enerated this result transmit jigar reference range : <=0.40. The reference r louis was not used to interpr et this result as sonido l/abnormal. [facility] [employer] [id number] 19:56:00 Test Item Value Reference Range Interpretation Comments Globulin (test code = Globulin) 3.7 2.7-4.2 [facility] [employer] [id number] 19:56:00 Test Item Value Reference Range Interpretation Comments A/G Ratio (test code = A/G Ratio) 0.9 0.7-1.6 [facility] [employer] [id number] 19:56:00 Test Item Value Reference Range Interpretation Comments B/C Ratio (test code = B/C Ratio) 19 6-25 [facility] [employer] [id number] 19:56:00 Test Item Value Reference Range Interpretation Comments Bili Total (test code = Bili Total) 0.5 0.2-1.3 [facility] [employer] [id number] 19:56:00 Test Item Value Reference Range Interpretation Comments Albumin Lvl (test code = Albumin Lvl) 3.3 3.5-5.0 [facility] [employer]2017-03-22 19:56:00 Test Item Value Reference Range Interpretation Comments Total Protein (test code = Total 7.0 6.4-8.4 Protein) [facility] [employer] [id number] 19:56:00 Test Item Value Reference Range Interpretation Comments Alk Phos (test code = Alk Phos) 68 39-136 [facility] [employer] [id number] 19:56:00 Test Item Value Reference Range Interpretation Comments AST (test code = AST) 51 See_Comment [Auto mated message] The system which ge nerated this result transmit jigar reference range : <=37. The reference range was not used to interpr et this result as sonido l/abnormal. [facility] [id number] 19:56:00 Test Item Value Reference Range Interpretation Comments ALT (test code = ALT) 44 See_Comment [Auto mated message] The system which ge nerated this result transmit jigar reference range : <=65. The reference range was not used to interpr et this result as sonido l/abnormal. [facility] [id number] 19:56:00 Test Item Value Reference Range Interpretation Comments U Cannab Scr (test Negative *NA*(06/15/16 code = U Cannab Scr) 2:56 PM) [facility] [id number] 19:56:00 Test Item Value Reference Range Interpretation Comments U Phencyc Scr (test Negative *NA*(06/15/16 code = U Phencyc Scr) 2:56 PM) [facility] [id number] 19:56:00 Test Item Value Reference Range Interpretation Comments U Opiate Scr (test Negative *NA*(06/15/16 code = U Opiate Scr) 2:56 PM) [facility] [id number] 19:56:00 Test Item Value Reference Range Interpretation Comments U Cocaine Scr (test Negative *NA*(06/15/16 code = U Cocaine Scr) 2:56 PM) [facility] [id number] 19:56:00 Test Item Value Reference Range Interpretation Comments U Benzodia Scr (test Negative *NA*(06/15/16 code = U Benzodia Scr) 2:56 PM) [facility] [id number] 19:56:00 Test Item Value Reference Range Interpretation Comments U Amph Scr (test code Negative *NA*(06/15/16 = U Amph Scr) 2:56 PM) [facility] [id number] 19:56:00 Test Item Value Reference Range Interpretation Comments U Elsy Scr (test code Negative *NA*(06/15/16 = U Elsy Scr) 2:56 PM) [facility] [id number] 19:56:00 Test Item Value Reference Range Interpretation Comments UDS Note (test code = See Note (06/15/16 2:56 UDS Note) PM) [id number] 19:56:00 Test Item Value Reference Range Interpretation Comments Hep Bs Ag (test code Negative *NA*(06/15/16 = Hep Bs Ag) 2:56 PM) [facility] [id number] 19:56:00 Test Item Value Reference Range Interpretation Comments Hep B Core IgM (test Negative *NA*(06/15/16 code = Hep B Core 2:56 PM) IgM) [facility] [id number] 19:56:00 Test Item Value Reference Range Interpretation Comments Hep C Ab (test code = Positive *ABN*(06/15/16 Hep C Ab) 2:56 PM) [facility] [id number] 19:56:00 Test Item Value Reference Range Interpretation Comments Hep A IgM (test code Negative *NA*(06/15/16 = Hep A IgM) 2:56 PM) [facility] [id number] 19:56:00 Test Item Value Reference Range Interpretation Comments Hgb A1C (test code = Hgb A1C) 6.6 [facility] AND [id number] 19:56:00 Test Item Value Reference Range Interpretation Comments UA pH (test code = UA pH) 5.5 1 5.0-8.0 [facility] AND [id number] 19:56:00 Test Item Value Reference Range Interpretation Comments UA Spec Grav (test code = UA Spec 1.020 1 Grav) [facility] AND [id number] 19:56:00 Test Item Value Reference Range Interpretation Comments UA Protein (test code Negative (06/15/16 2:56 = UA Protein) PM) [facility] [id number] 19:56:00 Test Item Value Reference Range Interpretation Comments UA Turbidity (test code = Clear (06/15/16 2:56 UA Turbidity) PM) [facility] [id number] 19:56:00 Test Item Value Reference Range Interpretation Comments UA Leuk Est (test Negative (06/15/16 2:56 code = UA Leuk Est) PM) [facility] AND [id number] 19:56:00 Test Item Value Reference Range Interpretation Comments Micro? (test code = Not Indicated (06/15/16 Micro?) 2:56 PM) [facility] [id number] 19:56:00 Test Item Value Reference Range Interpretation Comments UA Glucose (test code Negative (06/15/16 2:56 = UA Glucose) PM) [facility] [id number] 19:56:00 Test Item Value Reference Range Interpretation Comments UA Bili (test code = Negative *NA*(06/15/16 UA Bili) 2:56 PM) [facility] [id number] 19:56:00 Test Item Value Reference Range Interpretation Comments UA Ketones (test code Negative *NA*(06/15/16 = UA Ketones) 2:56 PM) [facility] [id number] 19:56:00 Test Item Value Reference Range Interpretation Comments UA Blood (test code = Negative (06/15/16 2:56 UA Blood) PM) [facility] [id number] 19:56:00 Test Item Value Reference Range Interpretation Comments UA Nitrite (test code Negative (06/15/16 2:56 = UA Nitrite) PM) [facility] [id number] 19:56:00 Test Item Value Reference Range Interpretation Comments UA Urobilinogen (test code = UA 0.2 0.1-1.0 Urobilinogen) [facility] [id number] 19:56:00 Test Item Value Reference Range Interpretation Comments UA Color (test code = Yellow *NA*(06/15/16 UA Color) 2:56 PM) [facility] [id number] 19:56:00 Test Item Value Reference Range Interpretation Comments Troponin-I (test code 6.52 See_Comment [Auto mated message] The = Troponin-I) system which g enerated this result transmit jigar reference range : <=0.40. The reference r louis was not used to interpr et this result as sonido l/abnormal. [facility] [employer]CHEM [id number] 19:56:00 Test Item Value Reference Range Interpretation Comments Globulin (test code = Globulin) 3.7 2.7-4.2 [facility] [id number] 19:56:00 Test Item Value Reference Range Interpretation Comments A/G Ratio (test code = A/G Ratio) 0.9 0.7-1.6 [facility]2017-03-22 19:56:00 Test Item Value Reference Range Interpretation Comments B/C Ratio (test code = B/C Ratio) 19 6-25 [facility]2017-03-22 19:56:00 Test Item Value Reference Range Interpretation Comments Bili Total (test code = Bili Total) 0.5 0.2-1.3 [facility]2017-03-22 19:56:00 Test Item Value Reference Range Interpretation Comments Albumin Lvl (test code = Albumin Lvl) 3.3 3.5-5.0 [facility]2017-03-22 19:56:00 Test Item Value Reference Range Interpretation Comments Total Protein (test code = Total 7.0 6.4-8.4 Protein) [facility]2017-03-22 19:56:00 Test Item Value Reference Range Interpretation Comments Alk Phos (test code = Alk Phos) 68 39-136 [facility]2017-03-22 19:56:00 Test Item Value Reference Range Interpretation Comments AST (test code = AST) 51 See_Comment [Auto mated message] The system which ge nerated this result transmit jigar reference range : <=37. The reference range was not used to interpr et this result as sonido l/abnormal. [facility]2017-03-22 19:56:00 Test Item Value Reference Range Interpretation Comments ALT (test code = ALT) 44 See_Comment [Auto mated message] The system which ge nerated this result transmit jigar reference range : <=65. The reference range was not used to interpr et this result as sonido l/abnormal. [facility] SouthCSRware [id number] 19:56:00 Test Item Value Reference Range Interpretation Comments U Cannab Scr (test Negative *NA*(06/15/16 code = U Cannab Scr) 2:56 PM) [facility]DR[facility] [id number] 19:56:00 Test Item Value Reference Range Interpretation Comments U Phencyc Scr (test Negative *NA*(06/15/16 code = U Phencyc Scr) 2:56 PM) [facility] SouthCSRware [id number] 19:56:00 Test Item Value Reference Range Interpretation Comments U Opiate Scr (test Negative *NA*(06/15/16 code = U Opiate Scr) 2:56 PM) [facility] [id number] 19:56:00 Test Item Value Reference Range Interpretation Comments U Cocaine Scr (test Negative *NA*(06/15/16 code = U Cocaine Scr) 2:56 PM) [facility] [id number] 19:56:00 Test Item Value Reference Range Interpretation Comments U Benzodia Scr (test Negative *NA*(06/15/16 code = U Benzodia Scr) 2:56 PM) [facility] [id number] 19:56:00 Test Item Value Reference Range Interpretation Comments U Amph Scr (test code Negative *NA*(06/15/16 = U Amph Scr) 2:56 PM) [facility] [id number] 19:56:00 Test Item Value Reference Range Interpretation Comments U Elsy Scr (test code Negative *NA*(06/15/16 = U Elsy Scr) 2:56 PM) [facility] [id number] 19:56:00 Test Item Value Reference Range Interpretation Comments UDS Note (test code = See Note (06/15/16 2:56 UDS Note) PM) [facility] [id number] 19:56:00 Test Item Value Reference Range Interpretation Comments Hep Bs Ag (test code Negative *NA*(06/15/16 = Hep Bs Ag) 2:56 PM) [facility] [id number] 19:56:00 Test Item Value Reference Range Interpretation Comments Hep B Core IgM (test Negative *NA*(06/15/16 code = Hep B Core 2:56 PM) IgM) [facility] [id number] 19:56:00 Test Item Value Reference Range Interpretation Comments Hep C Ab (test code = Positive *ABN*(06/15/16 Hep C Ab) 2:56 PM) [facility] [id number] 19:56:00 Test Item Value Reference Range Interpretation Comments Hep A IgM (test code Negative *NA*(06/15/16 = Hep A IgM) 2:56 PM) [facility]SPE[facility] [id number] 19:56:00 Test Item Value Reference Range Interpretation Comments Hgb A1C (test code = Hgb A1C) 6.6 [facility] AND [id number] 19:56:00 Test Item Value Reference Range Interpretation Comments UA pH (test code = UA pH) 5.5 1 5.0-8.0 [facility] AND [id number] 19:56:00 Test Item Value Reference Range Interpretation Comments UA Spec Grav (test code = UA Spec 1.020 1 Grav) [facility] AND [id number] 19:56:00 Test Item Value Reference Range Interpretation Comments UA Protein (test code Negative (06/15/16 2:56 = UA Protein) PM) [facility] AND [id number] 19:56:00 Test Item Value Reference Range Interpretation Comments UA Turbidity (test code = Clear (06/15/16 2:56 UA Turbidity) PM) [facility] AND [id number] 19:56:00 Test Item Value Reference Range Interpretation Comments UA Leuk Est (test Negative (06/15/16 2:56 code = UA Leuk Est) PM) [facility] AND [id number] 19:56:00 Test Item Value Reference Range Interpretation Comments Micro? (test code = Not Indicated (06/15/16 Micro?) 2:56 PM) [facility] AND [id number] 19:56:00 Test Item Value Reference Range Interpretation Comments UA Glucose (test code Negative (06/15/16 2:56 = UA Glucose) PM) [facility] [id number] 19:56:00 Test Item Value Reference Range Interpretation Comments UA Bili (test code = Negative *NA*(06/15/16 UA Bili) 2:56 PM) [facility] AND [id number] 19:56:00 Test Item Value Reference Range Interpretation Comments UA Ketones (test code Negative *NA*(06/15/16 = UA Ketones) 2:56 PM) [facility] AND [id number] 19:56:00 Test Item Value Reference Range Interpretation Comments UA Blood (test code = Negative (06/15/16 2:56 UA Blood) PM) [facility] AND [id number] 19:56:00 Test Item Value Reference Range Interpretation Comments UA Nitrite (test code Negative (06/15/16 2:56 = UA Nitrite) PM) [facility] AND [id number] 19:56:00 Test Item Value Reference Range Interpretation Comments UA Urobilinogen (test code = UA 0.2 0.1-1.0 Urobilinogen) [facility] AND [id number] 19:56:00 Test Item Value Reference Range Interpretation Comments UA Color (test code = Yellow *NA*(06/15/16 UA Color) 2:56 PM) [facility]
[2021-12-05 00:43] LABS: Absolute Lymphocytes (CBC) 1.7 K/uL (0.7-4.9); Hematocrit 35.8 % (39.6-49.0); Lymphocytes % 19.3 % (15.3-44.8); MCV 93.5 fL (80-100); RBC Red Blood Cell Count 3.82 M/uL (4.33-5.43)
[2021-12-05 00:48] LABS: Protime INR 1.34
[2021-12-05 01:23] LABS: Albumin 4.1 g/dL (3.4-5.0); Bilirubin Total 0.3 mg/dL (0.2-1.0); Potassium 4.4 mmol/L (3.5-5.1)
[2021-12-05 01:39] LABS: Troponin High Sensitivity 112.8 pg/mL (<58.9)
--- NOTE | 2021-12-05 02:53 | EDPHYS ---
Physician Documentation [facility] Name: Valerio Berg Age: 71 yrs Sex: Male : 1950 Arrival Date: 12/05/2021 Time: 00:02 Bed 18 Private MD: ED Physician HPI: 12/05 00:12 This 71 yrs old Black Male presents to ER via Unassigned with complaints of Breathing rn Difficulty. 00:12 The patient has shortness of breath at rest. Onset: The symptoms/episode began/occurred rn 1 week(s) ago. Duration: The symptoms are continuous. The patient's shortness of breath is aggravated by exertion, light activity. Associated signs and symptoms: Pertinent positives: non-productive cough, Pertinent negatives: fever, hemoptysis. Severity of symptoms: At their worst the symptoms were moderate in the emergency department the symptoms are unchanged. The patient has experienced similar episodes in the past. The patient has not recently seen a physician. Historical: - Allergies: 00:18 Betadine; ke1 00:18 Povidone-Iodine; ke1 - PMHx: 00:18 "Stroke"; Borderline Diabetes; COPD; Hypothyroidism; Myocardial infarction; ke1 - Immunization history:: Client reports receiving the 2nd dose of the Covid vaccine, Client reports receiving the 1st dose of the Covid vaccine. - Family history:: not pertinent. - Social history:: Smoking status: Patient/guardian denies using tobacco, the patient reports quitting approximately 15 years ago. - Hospitalizations: : No recent hospitalization is reported. ROS: 00:12 Constitutional: Negative for fever, chills, and weight loss, Eyes: Negative for injury, rn pain, redness, and discharge, Neck: Negative for injury, pain, and swelling, Cardiovascular: Negative for chest pain, palpitations Respiratory: + sob Abdomen/GI: Negative for abdominal pain, nausea, vomiting, diarrhea, and constipation, MS/Extremity: + lower ext swelling Skin: Negative for injury, rash, and discoloration, Neuro: Negative for headache, weakness, numbness, tingling, and seizure. Exam: 00:12 Constitutional: This is a well developed, well nourished patient who is awake, alert, rn moderate distress Head/Face: Normocephalic, atraumatic. Cardiovascular: Tachycardic, regular Respiratory: + moderate tachypnea, + wheezing bialterally, + intercostal retractions and speaking 3 word sentences. Abdomen/GI: Soft, non-tender Skin: Warm, dry MS/ Extremity: Pulses equal, no cyanosis. Neurovascular intact. Full, normal range of motion. Equal circumference. 2+ pitting edema bilateral lower ext. Neuro: Awake and alert, GCS 15 01:25 ECG was reviewed by the Attending Physician. rn Vital Signs: 00:15 BP 117 / 74; Pulse 65; Resp 23; Temp 99.1; Pulse Ox 92% on R/A; Weight 93.44 kg; Height ke1 5 ft. 10 in. (177.80 cm); Pain 0/10; 00:45 BP 109 / 59; Pulse 75; Resp 22; Pulse Ox 100% on BiPAP; ke1 01:00 BP 99 / 55; Pulse 70; Resp 20; Pulse Ox 100% on BiPAP; ke1 01:15 BP 97 / 52; Pulse 71; Resp 21; Pulse Ox 100% on BiPAP; ke1 01:22 BP 97 / 52; Pulse 68; Resp 19; Pulse Ox 99% on BiPAP; ke1 01:55 BP 108 / 63; Pulse 59; Resp 17; Temp 99.3(A); Pulse Ox 100% on BiPAP; ke1 03:00 BP 111 / 64; Pulse 79; Resp 13; Pulse Ox 99% ; ke1 03:28 Pulse Ox 98% on 4 lpm NC; ke1 04:12 BP 110 / 64; Pulse 67; Resp 22; Pulse Ox 100% on 4 lpm NC; Pain 0/10; ke1 07:02 BP 142 / 105; Pulse 67; Pulse Ox 100% on 4 lpm NC; ke1 00:15 Body Mass Index 29.56 (93.44 kg, 177.80 cm) ke1 00:45 IPAP 12 R 14 EPAP 6 O2 30% ke1 MDM: 00:02 Patient medically screened. rn 12/05 00:07 Order name: Blood Culture Adult (2) rn 12/05 00:07 Order name: CBC with Diff; Complete Time: 01:29 rn 12/05 00:07 Order name: CMP; Complete Time: 01:41 rn 12/05 00:07 Order name: Lactate; Complete Time: 01:29 rn 12/05 00:07 Order name: Protime (+inr); Complete Time: : rn 12/05 00:07 Order name: Ptt, Activated; Complete Time: : rn 12/05 00:07 Order name: Chest Single View XRAY rn 12/05 00:07 Order name: SARS-COV-2 RT PCR (Document "Date of Onset" if Symptomatic); Complete Time: rn :12/05 00:07 Order name: Flu; Complete Time: : rn 12/05 00:07 Order name: BIPAP rn 12/05 00:07 Order name: BNP; Complete Time: : rn 12/05 00:07 Order name: Troponin High Sensitivity; Complete Time: : rn 12/05 00:07 Order name: ABG; Complete Time: : rn 12/05 01:05 Order name: Glucose, Ancillary Testing; Complete Time: : EDMS 12/05 00:07 Order name: Accucheck; Complete Time: 00:54 rn 12/05 00:07 Order name: Cardiac monitoring; Complete Time: 00:32 rn 12/05 00:07 Order name: EKG - Nurse/Tech; Complete Time: 00:51 rn 12/05 00:07 Order name: IV Saline Lock - Large Bore; Complete Time: 00:32 rn 12/05 00:07 Order name: Labs collected and sent; Complete Time: 00:32 rn 12/05 00:07 Order name: O2 Per Protocol; Complete Time: 00:32 rn 12/05 00:07 Order name: O2 Sat Monitoring; Complete Time: 00:32 rn 12/05 02:51 Order name: CT Abd/Pelvis - Without Contrast rn EC:25 Rate is 71 beats/min. Rhythm is irregularly irregular. Left axis deviation noted. QRS rn is positive in lead I and negative in lead aVF. QRS interval is prolonged. QT interval is normal. No Q waves. T waves are Normal. No ST changes noted. Clinical impression: Atrial Fibrillation. Interpreted by me. Reviewed by me. Administered Medications: 00:21 Drug: Xopenex (levalbuterol) (3) 1.25 mg Route: Inhalation; jb4 00:21 Drug: SOLU-Medrol (methylPrednisoLONE) 125 mg Route: IVP; Site: right antecubital; jb4 03:15 Follow up: Response: No adverse reaction ke1 00:51 Drug: Magnesium Sulfate 1 grams Route: IVPB; Infused Over: 1 hrs; Site: right ke1 antecubital; 01:51 Follow up: IV Status: Completed infusion ke1 01:54 Not Given (Low BP ok not to give per MD): Lasix (furosemide) 40 mg IVP once; give over ke1 2 minutes 06:02 CANCELLED (Duplicate Order): Lasix (furosemide) 40 mg IVP once; give over 2 minutes rn 06:52 Drug: NS 0.9% 500 ml Route: IV; Rate: bolus; Site: right antecubital; ke1 Disposition Summary: 12/05/21 02:52 Hospitalization Ordered Hospitalization Status: Inpatient Admission rn Provider: Chapo Veliz rn Location: Telemetry/MedSurg (Inpatient) rn Condition: Stable rn Problem: new rn Symptoms: have improved rn Bed/Room Type: Standard rn Room Assignment: 404(12/05/21 03:17) mw Diagnosis - Dyspnea, unspecified rn - COPD/ Chronic obstructive pulmonary disease, unspecified rn - Unspecified combined systolic (congestive) and diastolic (congestive) heart failure rn - Hypoxemia rn Forms: - Medication Reconciliation Form rn - SBAR form rn Signatures: Dispatcher [employer] EDMS Leticia Bernard RN RN mw Nieto, Roman, MD MD rn Bryson, James RN RN jb4 Conor Rosa RN RN ke1 Corrections: (The following items were deleted from the chart) 03:17 02:52 rn mw 06:02 06:01 Lasix (furosemide) 40 mg IVP once; give over 2 minutes ordered. rn rn
--- NOTE | 2021-12-05 02:53 | ER ---
Nurse's Notes [facility] Name: Valerio Berg Age: 71 yrs Sex: Male : 1950 Arrival Date: 12/05/2021 Time: 00:02 Bed 18 Private MD: Diagnosis: Dyspnea, unspecified;COPD/ Chronic obstructive pulmonary disease, unspecified;Unspecified combined systolic (congestive) and diastolic (congestive) heart failure;Hypoxemia Presentation: 12/05 00:15 Chief complaint: Patient states: Patient presents to triage " I can't breath" rolled ke1 quickly in room. Ebola Screen: No symptoms or risks identified at this time. Initial Sepsis Screen: Does the patient meet any 2 criteria? No. Patient's initial sepsis screen is negative. Does the patient have a suspected source of infection? No. Patient's initial sepsis screen is negative. Risk Assessment: Do you want to hurt yourself or someone else? Patient reports no desire to harm self or others. Onset of symptoms was November 28, 2021. 00:15 Method Of Arrival: Ambulatory [facility] 00:15 Acuity: ADRIÁN 2 ke1 04:03 Coronavirus screen: Vaccine status: Patient reports receiving the 2nd dose of the covid ke1 vaccine. Triage Assessment: 00:15 General: Appears distressed, uncomfortable, Behavior is anxious. Pain: Denies pain. ke1 Respiratory: Reports shortness of breath labored breathing Airway is patent Trachea midline Respiratory effort is labored, Respiratory pattern is symmetrical, Onset: The symptoms/episode began/occurred since a week that got worse today, the patient has moderate shortness of breath. Historical: - Allergies: 00:18 Betadine; ke1 00:18 Povidone-Iodine; ke1 - PMHx: 00:18 "Stroke"; Borderline Diabetes; COPD; Hypothyroidism; Myocardial infarction; ke1 - Immunization history:: Client reports receiving the 2nd dose of the Covid vaccine, Client reports receiving the 1st dose of the Covid vaccine. - Family history:: not pertinent. - Social history:: Smoking status: Patient/guardian denies using tobacco, the patient reports quitting approximately 15 years ago. - Hospitalizations: : No recent hospitalization is reported. Screenin:15 Abuse screen: Denies threats or abuse. Nutritional screening: No deficits noted. ke1 Tuberculosis screening: No symptoms or risk factors identified. Fall Risk No fall in past 12 months (0 pts). Secondary diagnosis (15 points) SOB. No IV (0 pts). Ambulatory Aid- None/Bed Rest/Nurse Assist (0 pts). Gait- Weak (10 pts.). Mental Status- Oriented to own ability (0 pts). Total Carlos Fall Scale indicates Low Risk Score (25-44 pts). Fall prevention measures have been instituted. Side Rails Up X 2 Placed close to Nursing Station Frequent Obs/Assesments occuring. Assessment: 00:30 Cardiovascular: Rhythm is atrial fibrillation. ke1 03:29 Reassessment: Switched from BIPAP to NC \\T\\ 4 Lpm well tolerated Patient states feeling ke1 better. Patient states symptoms have improved. 03:58 Reassessment: Md waiting on CT result before patient can be transferred to 4th floor. ke1 07:35 Reassessment: Patient appears in no apparent distress at this time. Pt resting ph comfortably w/ eyes closed, report called to Leann MIXON on 4th floor. Vital Signs: 00:15 BP 117 / 74; Pulse 65; Resp 23; Temp 99.1; Pulse Ox 92% on R/A; Weight 93.44 kg; Height ke1 5 ft. 10 in. (177.80 cm); Pain 0/10; 00:45 BP 109 / 59; Pulse 75; Resp 22; Pulse Ox 100% on BiPAP; ke1 01:00 BP 99 / 55; Pulse 70; Resp 20; Pulse Ox 100% on BiPAP; ke1 01:15 BP 97 / 52; Pulse 71; Resp 21; Pulse Ox 100% on BiPAP; ke1 01:22 BP 97 / 52; Pulse 68; Resp 19; Pulse Ox 99% on BiPAP; ke1 01:55 BP 108 / 63; Pulse 59; Resp 17; Temp 99.3(A); Pulse Ox 100% on BiPAP; ke1 03:00 BP 111 / 64; Pulse 79; Resp 13; Pulse Ox 99% ; ke1 03:28 Pulse Ox 98% on 4 lpm NC; ke1 04:12 BP 110 / 64; Pulse 67; Resp 22; Pulse Ox 100% on 4 lpm NC; Pain 0/10; ke1 07:02 BP 142 / 105; Pulse 67; Pulse Ox 100% on 4 lpm NC; ke1 00:15 Body Mass Index 29.56 (93.44 kg, 177.80 cm) ke1 00:45 IPAP 12 R 14 EPAP 6 O2 30% ke1 ED Course: 00:02 Patient arrived in ED. ja2 00:02 Asa Cordoba MD is Attending Physician. rn 00:15 Conor Rsoa RN is Primary Nurse. ke1 00:18 Triage completed. ke1 00:18 Arm band placed on left wrist. ke1 00:20 Inserted saline lock: 18 gauge in right antecubital area, using aseptic technique. jb4 Blood collected. 00:20 Initial lab(s) drawn, by me, sent to lab. First set of blood cultures drawn by me. jb4 00:25 O2 via on BIPAP. ke1 00:25 Client placed on continuous cardiac and pulse oximetry monitoring. NIBP monitoring ke1 applied. hall monitor on. Pulse ox on. NIBP on. Warm blanket given. Pillow given. Patient is placed in psych hold. One-on-one care X 60 minutes. 00:32 Ptt, Activated Sent. jb4 00:32 Protime (+inr) Sent. jb4 00:32 CMP Sent. jb4 00:32 Lactate Sent. jb4 00:33 CBC with Diff Sent. jb4 00:47 Chest Single View XRAY In Process Unspecified. EDMS 00:59 Bed in low position. Side rails up X 1. Side rails up X2. ke1 02:51 Chapo Veliz MD is Hospitalizing Provider. rn 03:44 CT Abd/Pelvis - Without Contrast In Process Unspecified. EDMS 04:03 No provider procedures requiring assistance completed. ke1 07:25 Primary Nurse role handed off by Conor Rosa RN eb 08:08 Patient admitted, IV remains in place. ph 08:10 Attending Physician role handed off by Asa Cordoba MD ss Administered Medications: 00:21 Drug: Xopenex (levalbuterol) (3) 1.25 mg Route: Inhalation; jb4 00:21 Drug: SOLU-Medrol (methylPrednisoLONE) 125 mg Route: IVP; Site: right antecubital; jb4 03:15 Follow up: Response: No adverse reaction ke1 00:51 Drug: Magnesium Sulfate 1 grams Route: IVPB; Infused Over: 1 hrs; Site: right ke1 antecubital; 01:51 Follow up: IV Status: Completed infusion ke1 01:54 Not Given (Low BP ok not to give per MD): Lasix (furosemide) 40 mg IVP once; give over ke1 2 minutes 06:02 CANCELLED (Duplicate Order): Lasix (furosemide) 40 mg IVP once; give over 2 minutes rn 06:52 Drug: NS 0.9% 500 ml Route: IV; Rate: bolus; Site: right antecubital; ke1 Medication: 04:03 VIS not applicable for this client. ke1 Outcome: 02:52 Decision to Hospitalize by Provider. rn 08:08 Admitted to Tele accompanied by tech, room 404, with oxygen, with chart, Report called ph to APURVA Noriega 08:08 Condition: stable 08:09 Patient left the ED. ss 08:14 Patient left the ED. ph Signatures: Dispatcher [employer] EDMS Asa Cordoba MD MD rn Smirch, Shelby, RN RN ss Hall, Patricia, RN RN ph Bryson, James, RN RN Evi Fuentes Jessica ja2 Ebrottie, Kouassi, RN RN ke1 Corrections: (The following items were deleted from the chart) 01:31 00:45 BP 109 / 59; Pulse 75bpm; Resp 22bpm; Pulse Ox 100% BiPAP; ke1 ke1 01:36 01:31 BP 99 / 55; Pulse 70bpm; Resp 20bpm; Pulse Ox 100% BiPAP; ke1 ke1 02:20 01:55 BP 108 / 63; Pulse 59bpm; Resp 17bpm; Pulse Ox 100% BiPAP; ke1 ke1
[2021-12-05] MEDS ORDERED: NA CHLORIDE 0.9% 500 ML ONE (06:58)
[2021-12-05] MEDS ORDERED: IPRATROPIUM BROM 0.5MG/2.5ML NEB PRN (07:36)
[2021-12-05] MEDS ORDERED: ONDANSETRON 4 MG/2 ML VIAL IV PRN (07:36)
[2021-12-05] MEDS ORDERED: ALBUTEROL 2.5 MG/3 ML NEB SOL NEB SCH (08:00)
[2021-12-05] MEDS ORDERED: GLUCAGON 1 MG/VIAL IM PRN (08:24)
[2021-12-05] MEDS ORDERED: D50W 25 GM/50 ML SYRINGE IV PRN (08:24)
[2021-12-05] MEDS ORDERED: ASPIRIN EC 81 MG TAB PO SCH (09:00)
[2021-12-05] MEDS: POTASSIUM CL SA 10 MEQ TAB PO SCH (10:19)
[2021-12-05] MEDS: APIXABAN 2.5 MG TABLET PO SCH ×2 (10:19→22:26)
[2021-12-05] MEDS: FUROSEMIDE 40 MG TABLET PO SCH ×2 (10:19→22:25)
[2021-12-05] MEDS: CLOPIDOGREL 75 MG TABLET PO SCH (10:20)
[2021-12-05] MEDS: SACUBITRIL/VALSARTAN 24/26 MG TAB PO SCH ×2 (10:20→22:25)
[2021-12-05] MEDS: carvediloL 6.25 MG TAB PO SCH ×2 (10:20→17:00)
[2021-12-05] MEDS: MONTELUKAST 10 MG TAB PO SCH (10:20)
[2021-12-05] MEDS: ROPINIROLE HCL 1 MG TAB PO SCH ×2 (10:20→22:25)
[2021-12-05] MEDS: METHYLPREDNISOLONE 40 MG INJ IV SCH ×2 (10:20→17:47)
[2021-12-05] MEDS ORDERED: DEXTROSE 10%-WATER 125 ML IV PRN (10:21)
[2021-12-05 10:36] VITALS: BMI 29.5
[2021-12-05] MEDS: INSULIN -REGULAR HUMAN 50 UNIT/0.5 ML ML SQ SCH ×3 (11:30→21:00)
--- NOTE | 2021-12-05 13:53 | HP ---
Date of Admission: 12/05/2021 Chief Complaint: Shortness of breath. History Of Present Illness: This is a 71-year-old male patient, came into emergency room with compla ints of shortness of breath. The patient has chronic cough for many years and that has not changed. After the patient was evaluated in ER, he was admitted to the hospital with acute exacerbation of CO PD and congestive heart failure problem. The patient required some BiPAP support in the emergency ro om for his shortness of breath problem and once his condition improved overnight in the ER, he was ch anged to nasal cannula oxygen. When I saw him in the emergency room this morning, he was on nasal ca nnula oxygen, not in any distress. Allergies: NO KNOWN ALLERGIES. Medications: Albuterol nebulizer treatment 4 times a day as needed, albuterol inhaler 4 times a day as needed, Combivent Respimat inhaler 2 puffs 4 times a day as needed, Eliquis 2.5 mg 2 times a day, clopidogrel 75 mg daily, atorvastatin 40 mg daily at bedtime, carvedilol 6.25 mg 2 times a day, Senok ot-S 2 tablets daily, furosemide 80 mg 2 times a day, levothyroxine 25 mcg daily, Tradjenta 5 mg jihan y in morning with breakfast, montelukast 10 mg daily, potassium chloride 20 mEq take half a tablet da zulma, ropinirole 1 mg 2 times a day, Entresto 24/26 mg 1 tablet 2 times a day, Valtrex 500 mg daily. Review of Systems: Respiratory: As mentioned above. Cardiovascular: As mentioned above. All other systems reviewed and negative. 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 Fregoso; chronic constipation; chronic kidney disease; benig n prostatic hypertrophy; osteoarthritis at multiple sites; lumbar spinal stenosis; and hypokalemia. Chronic systolic heart failure with ejection fraction of 27% as per last echocardiogram done last ari villalta in 2020. Past Surgical History: Teeth extraction, coronary artery bypass surgery, surgery for radius and ulna fracture and hip surgery as well as knee surgery. Family History: Mother had Alzheimer disease, diabetes, and tuberculosis. Brother had stroke. Social History: Prior history of smoking, not at present time. Use of alcohol in the past, but quit using alcohol in 2006. Physical Examination: Vital Signs: When he first came into emergency room; blood pressure 117/74, pulse 65, respiratory ra te 23, temperature 99.1, oxygen saturation 92% on room air. Subsequently, the patient required BiPAP therapy in the emergency room and he is back on nasal cannula oxygen now. His weight was 93.4 kg. General: Awake, alert, oriented, not in distress. HEENT: Head atraumatic, normocephalic. Conjunctivae nonerythematous. Sclerae white. Mouth, no thr ush or edema noted. Ears/Nose, no mass, lesion, discharge noted. Neck: Supple. No JVD, lymph nodes, bruit, thyromegaly noted. Lungs: Bilateral good equal air entry. Clear to auscultation. No rhonchi. No rales. Heart: Normal heart sounds, no murmur or gallop. Abdomen: Soft, bowel sounds normal. No guarding, rigidity, tenderness, mass, hepatosplenomegaly, dis tention, or bruit noted. Extremities: No leg edema. No calf tenderness. Skin: No rash, ulcer, cellulitis. Lymphatics: No lymph node enlargement in neck, supraclavicular, infraclavicular region. Neuro: No focal neurological deficit. Chest: Unremarkable. External Genitalia: Deferred. Rectal: Deferred. Laboratory Data: White count 8.6, hemoglobin 12, platelets 178. Arterial blood gas; pH 7.34, pCO2 3 8.6, pO2 220, oxygen saturation 99.3% on 40% FiO2. Sodium 141, potassium 4.4, chloride 109, bicarb 2 6, BUN 42, creatinine 2.48, glucose 117. Liver function tests unremarkable. Troponin 112.8. ProBNP 2155. COVID-19 test negative. Chest x-ray, no acute cardiopulmonary changes, except on chest x-ray was reported as possibility of some air under diaphragm and CAT scan of the abdomen and pelvis done in emergency room, which was negative for any acute intraabdominal changes. No evidence of any pneum operitoneum. The patient does have some degenerative joint disease of lumbar spine. Impression: 1.Acute exacerbation of chronic obstructive pulmonary disease. 2.Chronic systolic heart failure, with acute exacerbation. 3.Acute respiratory failure with hypoxia, improved. 4.Chronic kidney disease, stage 4. 5.Anemia due to chronic kidney disease. 6.Hypothyroidism. 7.Type 2 diabetes mellitus. 8.Hypertension. 9.Hyperlipidemia. 10.Coronary artery disease. 11.Paroxysmal atrial fibrillation. 12.Nonalcoholic fatty liver disease. 13.Benign prostatic hypertrophy. 14.Osteoarthritis, multiple sites. 15.Hypokalemia. 16.Chronic constipation. Plan: We will go ahead and admit the patient to hospital for further evaluation and management of th is problem. The patient is appropriate for inpatient and [facility] We will continue oxygen nebulizer treatment per order. We will go ahead and also continue home m edications per order. We will consult Cardiology, and details and plan of treatment discussed with t he patient. Continue his anticoagulation therapy which is Eliquis. His cardiac enzymes are elevated . We will follow up on serial cardiac enzymes and this could be stress-induced ischemia, demand isch emia more than primary myocardial infarction type of problem. His last cardiac cath July 02, 2020 had shown 100% stenosis of proximal LAD with ABLERTO to LAD and 95% stenosis of mid RCA which was stented. ANNA/MODL Voice ID: [id number]
--- NOTE | 2021-12-05 18:19 | RAD REPORT ---
EXAM DESCRIPTION: CT Abdomen and Pelvis Without Intravenous Contrast CLINICAL HISTORY: The patient is 71 years old and is Male; possible free air under diaphragm TECHNIQUE: Axial computed tomography images of the abdomen and pelvis without intravenous contrast. Sagittal and coronal reformatted images were created and reviewed. This CT exam was performed usi ng one or more of the following dose reduction techniques: automated exposure control, adjustment o f the mA and/or kV according to patient size, and/or use of iterative reconstruction technique. COMPARISON: No relevant prior studies available. FINDINGS: Artifacts: Motion and beam hardening artifact limit the evaluation. The patient's arms over the upper abdomen cause beam hardening artifact. Lung bases: Unremarkable. No mass. No consolidation. Heart: Cardiomegaly. ABDOMEN: Liver: Unremarkable. Gallbladder and bile ducts: Unremarkable. No calcified stones. No ductal dilation. Pancreas: Unremarkable. No ductal dilation. Spleen: Unremarkable. No splenomegaly. Adrenals: Unremarkable. No mass. Kidneys and ureters: Unremarkable. No obstructing stones. No hydronephrosis. Stomach and bowel: Multiple gas-filled small bowel loops without wall thickening or obstruction. Anorectal region evaluation is limited by streak artifact from left hip arthroplasty hardware . Gas and stool in the colon. No definite evidence of colitis. PELVIS: Appendix: The visualized appendix is normal. No pericecal inflammation to suggest acute appendici tis. Bladder: Unremarkable. No stones. Reproductive: Unremarkable as visualized. ABDOMEN and PELVIS: Intraperitoneal space: No pneumoperitoneum visualized. Small amount of free fluid in the pelvis. Bones/joints: Bilateral SI joint ankylosis. Left total hip arthroplasty. No dislocation. Multilevel degenerative changes in the spine. Ve rtebral Schmorl's nodes. Multilevel marginal and bridging osteophytes consistent with diffuse idiopat hic skeletal hyperostosis. Soft tissues: Unremarkable. Vasculature: Unremarkable. No abdominal aortic aneurysm. Lymph nodes: No pathologically enlarged lymph nodes. IMPRESSION: 1. Motion and beam hardening artifact limit the evaluation. 2. No pneumoperitoneum visualized. 3. Multiple gas-filled small bowel loops without wall thickening or obstruction. 4. Anorectal region evaluation is limited by streak artifact from left hip arthroplasty hardware. 5. Additional non-emergent findings as above. Electronically signed by: Milka Felix MD 12/05/2021 5:34 AM CDT Due to temporary technical issues with the PACS/Fluency reporting system, reports are being signed by the in house radiologists without review as a courtesy to insure prompt reporting. The interpreting radiologist is fully responsible for the content of the report.
--- NOTE | 2021-12-05 18:21 | CON ---
Date of Consultation: 12/05/2021 Reason For Consultation: Elevated troponin, history of paroxysmal atrial fibrillation, congestive he art failure. History Of Present Illness: This is a 71-year-old male, presented to the emergency room with shortne ss of breath, known to have history of COPD. The patient required BiPAP in the emergency room and di d well afterwards. Denies having any chest pain. No nausea, vomiting, or diarrhea. Past Medical History: Significant for coronary artery disease, status post recent PCI of his RCA, st atus post CABG in the past with recent cath that showed patent ALBERTO graft. 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 Medications: Refer to reconciliation sheet for detailed list. Allergies: IODINE. Family History: No premature coronary artery disease or cancer. Social History: He does not smoke or drink. Does not use any drugs. Review of Systems: All systems reviewed and they were negative except for what mentioned in HPI. Physical Examination: Vital Signs: Reviewed. Head and Neck: Pupils are equal, reactive to light. Intact eye movements. No JVD. No cervical lym phadenopathy. Neck is supple. Thyroid is not enlarged. Lungs: Clear to auscultation bilaterally. No rhonchi, wheezing, or crackles. No accessory muscle u se. Heart: Irregular. No extra sounds. Abdomen: Soft, nontender. Bowel sounds positive. No organomegaly. No masses or hernia. No rigidi ty or rebound. Extremities: No clubbing or cyanosis. Intact pulses. Skin: No rash. Neurologic: Alert, awake with confusion. No acute focal deficits appreciated. Investigations: BUN 42, creatinine 2.48. Troponins 112 and then 103. Assessment And Recommendations: 1.Elevated troponin is likely demand ischemia. There is no chest pain. Obtain echocardiogram tomor row to evaluate for any wall motion abnormalities. The patient had recent percutaneous coronary inte rvention, so continue Plavix and Eliquis. 2.Paroxysmal atrial fibrillation that is controlled on Eliquis 2.5 mg twice a day as well. The roger ent has a chronic kidney disease and requiring antiplatelet therapy. I would recommend appendage murray sure as apixaban is given at half doses due to kidney function and the patient requiring antiplatelet . We will put him at a significant risk of bleeding if the appendage closure is recommended. I will discuss this further with the patient's family and primary care physician. 3.Acute respiratory failure due to chronic obstructive pulmonary disease exacerbation and appears to be doing much better. 4.Chronic congestive heart failure, on Lasix 80 mg twice a day. Continue current management. SR/MODL Voice ID: [id number] Report ID: [id number]
--- NOTE | 2021-12-05 18:44 | RAD REPORT ---
EXAM DESCRIPTION: XR CHEST 1 VIEW 12/05/2021 12:07 AM CDT CLINICAL HISTORY: DYSPNEA COMPARISON: None. TECHNIQUE: XR CHEST 1 VIEW 12/05/2021 12:07 AM CDT FINDINGS: The heart is mildly enlarged following sternotomy. There is suggestion of free subdiaphrag matic air in the right upper quadrant. Lungs are clear without consolidation, atelectasis, mass or ed darby. There is no pleural effusion. There is no pneumothorax. There are no acute osseous findings. IMPRESSION: Possible free air in the right upper quadrant. Recommend abdominal CT. Electronically signed by: Heriberto Muse MD 12/05/2021 2:40 AM CDT Due to temporary technical issues with the PACS/Fluency reporting system, reports are being signed by the in house radiologists without review as a courtesy to insure prompt reporting. The interpreting radiologist is fully responsible for the content of the report.
[2021-12-05] MEDS ORDERED: ATORVASTATIN 40 MG TAB PO SCH (21:00)
[2021-12-05] MEDS ORDERED: DOCUSATE NA/SENNA CONC 1 TAB PO SCH (21:00)
[2021-12-06] MEDS: METHYLPREDNISOLONE 40 MG INJ IV SCH (00:23)
[2021-12-06 03:46] LABS: Absolute Lymphocytes (CBC) 0.7 K/uL (0.7-4.9); Hematocrit 29.7 % (39.6-49.0); Lymphocytes % 9.1 % (15.3-44.8); MCV 93.2 fL (80-100); MPV 6.9 fL (7.6-11.3); RBC Red Blood Cell Count 3.19 M/uL (4.33-5.43)
[2021-12-06 04:41] LABS: Potassium 4.9 mmol/L (3.5-5.1)
[2021-12-06] MEDS: ALBUTEROL 2.5 MG/3 ML NEB SOL NEB PRN ×2 (05:33→13:32)
[2021-12-06] MEDS ORDERED: LEVOTHYROXINE SOD 0.025 MG TAB PO SCH (06:30)
[2021-12-06] MEDS: INSULIN -REGULAR HUMAN 50 UNIT/0.5 ML ML SQ SCH ×2 (07:30→11:30)
[2021-12-06 08:30] VITALS: O2SAT 99
[2021-12-06 08:52] VITALS: TEMP 97.5
[2021-12-06] MEDS: CLOPIDOGREL 75 MG TABLET PO SCH (09:39)
[2021-12-06] MEDS: carvediloL 6.25 MG TAB PO SCH (09:39)
[2021-12-06] MEDS: FUROSEMIDE 40 MG TABLET PO SCH (09:39)
[2021-12-06] MEDS: ROPINIROLE HCL 1 MG TAB PO SCH (09:39)
[2021-12-06] MEDS: SACUBITRIL/VALSARTAN 24/26 MG TAB PO SCH (09:39)
[2021-12-06] MEDS: MONTELUKAST 10 MG TAB PO SCH (09:39)
[2021-12-06] MEDS: POTASSIUM CL SA 10 MEQ TAB PO SCH (09:40)
[2021-12-06] MEDS: APIXABAN 2.5 MG TABLET PO SCH (09:40)
[2021-12-06 12:26] VITALS: BP 119/69
--- NOTE | 2021-12-06 20:28 | PN ---
Date of Progress Note: 12/06/2021 Subjective: Seen by bedside, is doing clinically much better. No chest pain. Review of Systems: No chest pain, shortness of breath, orthopnea, cough. No nausea, vomiting, diarrhea. All other syst ems reviewed are negative. Physical Examination: Vital Signs: Reviewed. Head and Neck: Pupils are equal and reactive to light. Intact eye movements. No JVD. No cervical lymphadenopathy. Neck supple. Thyroid is not enlarged. Lungs: Decreased breathing sounds bilaterally. No accessory muscle use or muscle retractions. Heart: Irregularly irregular. No extra sounds. Abdomen: Soft, nontender. Bowel sounds positive. No organomegaly. No masses or hernia. No rigidi ty or rebound. Extremities: No clubbing, cyanosis. Intact pulses. Skin: No rash. Neurologic: Alert, awake, and oriented x3. No acute focal deficit appreciated. Lymph Nodes: No cervical or axillary lymphadenopathy. Investigations: His BUN 50, creatinine is 1.8 down from creatinine 2.5 at admission. Troponin trend ed down to 103. Assessment And Recommendations: 1.Acute on chronic congestive heart failure exacerbation improved nicely. Continue current regimen of treatment including the Lasix and we can obtain echo as an outpatient if the patient is being disc harged today. 2.Elevated troponin, likely due to demand ischemia; however, outpatient workup might be warranted wi th a stress test. The patient at this point can be released from Cardiology standpoint and follow up as an outpatient. 3.Acute renal failure, probably due to fluid retention, improved with diuresis. Evaluate kidney function tests in 2 weeks. 4.Paroxysmal atrial fibrillation. Continue Coreg and apixaban. SR/MODL Voice ID: [id number] Report ID: [id number]
--- NOTE | 2021-12-07 06:34 | DS ---
Date of Discharge: 12/06/2021 Disposition: Discharged to go home. Physical Examination: HEENT: Unremarkable. Lungs: Clear to auscultation. Heart: Sounds normal. Abdomen: Soft. Bowel sounds normal. No guarding, rigidity, tenderness, distention. Extremities: No leg edema. Laboratory Data: Today; white count 7.6, hemoglobin 10.1, platelets 151. Sodium 140, potassium 4.9, chloride 110, bicarb 25, BUN 50, creatinine 1.80, glucose 184, troponin 113.3. That was the first s et. Final Diagnoses: 1.Acute exacerbation of chronic obstructive pulmonary disease. 2.Chronic systolic heart failure, with acute exacerbation. 3.Acute respiratory failure with hypoxia. 4.Chronic kidney disease stage 4. 5.Anemia due to chronic kidney disease. 6.Hypothyroidism. 7.Type 2 diabetes mellitus. 8.Hyperlipidemia. 9.Coronary artery disease. 10.Paroxysmal atrial fibrillation. 11.Known alcoholic fatty liver disease. 12.Benign prostatic hypertrophy. 13.Hypokalemia. 14.Osteoarthritis, multiple sites. 15.Chronic constipation. Discharge Medications: 1.Continue all prior home medication. 2.Use Combivent inhaler as prescribed and prescription was sent to Pharmacy. 3.Follow up at the office next week. Hospital Course: A 71-year-old male patient who was admitted to the hospital with complaints of shor tness of breath. Please see dictated H and P for more information. After the patient was evaluated in the ER, he was admitted to the hospital. Cardiac enzymes were obtained yesterday and today and it has remained stable. Cardiology consultation was obtained from Dr. Pena. Echo with Doppler was o rdered to be done today, but unfortunately Cardiology department was not able to do echocardiogram an d centerless grinder has given his okay to discharge patient and he will do outpatient echo to his office. Medically, patient is stable for discharge. His shortness of breath problem has improved. He recei gavin IV steroid nebulizer treatment and overall condition has improved. Today, he was discharged to [facility] home in stable condition with above-mentioned medication instructions. ANNA/MODL Voice ID: [id number] Report ID: [id number]
--- NOTE | 2021-12-07 15:43 | EKG ---
Test Date: 2021-12-05 Test Time: 00:38:01 Cryptography Teacher: DUNCAN MEASUREMENT RESULTS: Intervals: Rate: 71 OR: QRSD: 136 QT: 380 QTc: 412 [place]: P: OR: QRS: 261 T: 110 INTERPRETIVE STATEMENTS: Atrial fibrillation Nonspecific intraventricular block Possible Right ventricular hypertrophy Inferior infarct, age undetermined Anterolateral infarct, age undetermined Abnormal ECG Compared to ECG 04/21/2021 02:28:22 Sinus rhythm no longer present Left-axis deviation no longer present Right bundle-branch block no longer present Myocardial infarct finding still present Electronically Signed On 12-07-21 15:40:52 CDT by Orville Pena
== END 2021-12-06 16:47 | disposition home or self-care (01) ==
LOC: ER → INTOOBSV 06:03 → ERHOLD 06:03 → 4TH 08:06
PROVIDERS: ADMIT Internal Medicine; ATTEND Internal Medicine
PROC: 5A09357 Assistance with Respiratory Ventilation, Less than 24 Consecutive Hours, Continuous Positive Airway Pressure (ICD-10-PCS; principal; 2021-12-05)
DX: J96.00 Acute respiratory failure, unspecified whether with hypoxia or hypercapnia (principal); J44.1 Chronic obstructive pulmonary disease with (acute) exacerbation; R77.8 Other specified abnormalities of plasma proteins; I48.0 Paroxysmal atrial fibrillation; Z79.01 Long term (current) use of anticoagulants; I50.9 Heart failure, unspecified; Z20.822 Contact with and (suspected) exposure to COVID-19
CPT/HCPCS: 96365; 93005; 87040 ×2; 85025 ×2; 80048; 36415 ×2; 85610; 82947 ×6; 83605; 85730; 84484 ×2; 80053; 83880 ×2; 87804 ×2; 74176; 71045; 94640; 82805; 94760 ×3; 94660 ×3; 96375; 99285; U0003; J7614; J3475; J7040; J2930; J2920 ×3; G0378 ×3

== ENCOUNTER → 2022-08-29 | Day surgery (SDC) | payer OTHER | LOC: OR 10:25 | PROVIDERS: ATTEND Ophthalmology Retina Specialist | DX: H25.812 Combined forms of age-related cataract, left eye (principal); Z53.8 Procedure and treatment not carried out for other reasons; I10 Essential (primary) hypertension; J44.9 Chronic obstructive pulmonary disease, unspecified; Z79.01 Long term (current) use of anticoagulants; Z79.899 Other long term (current) drug therapy; Z86.73 Personal history of transient ischemic attack (TIA), and cerebral infarction without residual deficits ==

== ENCOUNTER 2022-10-31 08:52 | Day surgery (SDC) | payer OTHER ==
[2022-10-28 12:14] LABS: Potassium 3.8 mEq/L (3.5-5.1)
[2022-10-31] MEDS ORDERED: CYCLOPENTOLATE 1% OPTH 2 ML ONE (10:02)
[2022-10-31] MEDS ORDERED: PHENYLEPHRINE 10% OPTH 5ML ONE (10:03)
[2022-10-31] MEDS ORDERED: NA CHLORIDE 0.9% 500 ML ONE ×2 (10:03→14:26)
[2022-10-31] MEDS ORDERED: propofoL 200 MG/20 ML VIAL IV ONE (13:46)
[2022-10-31] MEDS ORDERED: FENTANYL CITR 100 MCG/2 ML ONE (13:47)
[2022-10-31] MEDS ORDERED: LIDOCAINE 2% MPF 5 ML VIAL ONE (13:47)
[2022-10-31] MEDS ORDERED: MIDAZOLAM HCL 2 MG/2 ML INJ ONE (13:47)
[2022-10-31] MEDS ORDERED: DUOVISC 1 KIT OPTH ONE (14:05)
[2022-10-31] MEDS ORDERED: BSS OPTHALMIC SOL 15 ML OPTH ONE (14:05)
[2022-10-31] MEDS ORDERED: EPINEPHRINE/PF 1 MG/ML AMP ONE (14:05)
[2022-10-31] MEDS ORDERED: BALANCED SALT IRRIG PLAIN 500 ML IRR ONE (14:05)
[2022-10-31] MEDS ORDERED: MOXIFLOXACIN HCL 10 DROPS/ML **OR USE OPTH ONE (14:06)
[2022-10-31 16:54] VITALS: BP 156/74; TEMP 96.7; O2SAT 100
--- NOTE | 2022-10-31 18:35 | OP ---
Surgeon: Em Alvarez MD Anesthesiologist: Jo-Ann Forrest CRNA, and Joshua Alejandro MD. Preoperative Diagnosis: Posterior subcapsular cataract, left eye. Procedure: Phacoemulsification with intraocular lens implant, left eye. Anesthesia: General anesthesia. Complications: None. Description Of Procedure: In day surgery, the patient was intubated by anesthesia. In the operating room the patient was prepped and draped in the usual sterile fashion for ophthalmic surgery. A lid speculum was placed in the left eye. One paracentesis site was made inferiorly in the limbal cornea. Viscoat was placed in the anterior chamber.A keratome was used to enter the anterior chamber. A 360 degree capsulotomy was performed with a utrata forceps. The lens was hydrodissected with BSS and rotated freely. The lens was removed with a stop and chop technique. 5.73 Phaco CDE was used to remove the lens. Residual cortex was removed with the irrigation and aspiration. Provisc was placed in the capsular bag. A CC60WF +22.5 lens was placed in the capsular bag without complications. Irrigation and aspiration was used to remove residual viscoelastic. The paracentesis sites were hydrated with BSS. The wound and paracentesis sites were inspected and found to be watertight. Vigamox 0.07 cc was placed intracamerally at the end of the procedure. The eye was covered with a clear plastic shield. The patient was returned to day surgery in good condition. Comments: Discharge Instructions: Mr. Berg was discharged to home in good condition to follow up with Dr. Alvarez in the morning. UZIEL/ARMANDO Voice ID: [id number] Report ID: [id number] CAMACHO
== END 2022-10-31 16:50 | disposition home or self-care (01) ==
LOC: OR 08:52
PROVIDERS: ADMIT Ophthalmology Retina Specialist; ATTEND Ophthalmology Retina Specialist
PROC: 08RK3JZ Replacement of Left Lens with Synthetic Substitute, Percutaneous Approach (ICD-10-PCS; principal; 2022-10-31 11:30)
DX: H25.042 Posterior subcapsular polar age-related cataract, left eye (principal); H25.812 Combined forms of age-related cataract, left eye
CPT/HCPCS: 80048; 36415; 82947; 66984; J2704; J0171; J2001; J3010; J7040 ×2; J2250

== ENCOUNTER 2022-11-23 12:13 | Emergency (ER) | payer OTHER ==
--- OUTSIDE RECORDS SUMMARY | 2022-11-23 12:16 | XMS REPORT | Clinical Summary ---
:1950 Author Organization [facility] Address [address] [place] [address] Care Team Providers Name Role Phone Ray [...] has established a follow-up with his local public relations intern in March for further management. Clostridioides difficile [...] and fluid disorders not elsewhere classifi ed Surgical History Surgery Date Site/Laterality Comments KNEE SURGERY left knee ANKLE SURGERY left ankle PARTIAL HIP ARTHROPLASTY left hi p CORONARY ARTERY BYPASS GRAFT Medical History Medical History Date Comments Myocardial infarction Prediabetes Hypertension Hyperlipidemia Foot-drop left foot drop, sinc e Bacteremia 09/29/2020 pseudomonas Social History Tobacco Use Types Packs/Day Years Used Date Smoking Tobacco: Former Cigarettes 3 50 Smokeless Tobacco: Never Tobacco Cessation: Counseling Given: Yes Comments: stopped [...] (#1) 04/10/1951 Medical Devices Implanted Type Area Yarder Engineer Device Shelf Model / Identifier Expiration Date Ser ial / Lot Metalware Metalware Right: Arm Description: pt sts he has a metal ryan i n r arm Stent Stent Heart Results Not on fileafter 11/23/2021 Insurance Payer Benefit Plan / Subscriber ID Effective Dates Phone Addre ss Type Group HUMANA HUMANA CHOICE [id number] 2020-[employer]iti [address] [address] Medicare MEDIC[place] [address] Advance Directives Type Date Recorded Patient Composite Technician Explanati on Advance Directives: 11/02/2020 Medical Lemuel r of Manager Of Loss Prevention Operations Medical Power of Manager Of Loss Prevention Operations Code Status Date Activated Date Inactivated Comments Full Code 10/07/2020 12:02 PM 11/14/2020 4:41 PM Code Status Date Activated Date Inactivated Comments Full Code 09/17/2020 12:45 PM 09/23/2020 7:59 PM Care Teams Therapeutic Dietitian Relationship Specialty Start Date End Date Ray Veliz MD PCP - External Referring Internal Medicine 09/03/[address] [place] [address] [place] [address] Dru Smith MD PCP - General Lymphoma and Myeloma 09/16/[address] [place] [address] [phone]
--- OUTSIDE RECORDS SUMMARY | 2022-11-23 12:39 | XMS REPORT | Continuity of Care Document ---
:1950 Author Organization [facility] t Address [address] [place] [address] Care Team Providers Name Role Phone No, Pcp [facility] Primary Care Physician Unavailable Ray Veliz Attending Clinician Unavailable [id number] Attending Clinician Unavailable NINA REYNOSO Attending Clinician Unavailable MOSES TORIBIO Attending Clinician Unavailable SYSTEM, PROVIDER NOT IN Attending Clinician Unavailable BETH ADEN Attending Clinician Unavailable NICOLE CHEEK Attending Clinician Unavailable NICOLE CHEEK Attending Clinician Unavailable Doctor Unassigned, Mims Attending Clinician Unavailable Kimberlee Rai Attending Clinician Eugene JIMENEZ, Vesta Attending Clinician Marcial JIMENEZ, Katelin Attending Clinician Sarah LOVE, Dru Attending Clinician Mulugeta MIXON, Bailey Villagomez Attending Clinician Unavailable Yary JIMENEZ, Princess Atwood Attending Clinician Cj MIXON, Antonette Carney Attending Clinician Unavailable Len LOVE, Nissa Attending Clinician Jesika LOVE, Latisha Attending Clinician Milton LOVE, Swapnil Attending Clinician Lit MIXON, Fartun Jones Attending Clinician Unavailable Alex LOVE, Yomaira Martinez Attending Clinician [phone] Phong RN, Alyssa Glover Attending Clinician Unavailable Herber LOVE PhD, Armando Marie Attending Clinician [phone] Bud Jarrett MD Attending Clinician [phone] Dionna LOVE, Randolph Gallagher Attending Clinician Vivien LOVE, Alba Trimble Attending Clinician Lavonne LOVE, Darryl Attending Clinician Hayden LOVE PhD, [facility] Attending Clinician Abiodun Borjas MD, Randolph Gallagher Attending Clinician [phone] Elizabeth Zavala Attending Clinician Maverick JIMENEZ, Charito Watts Attending Clinician Prince JIMENEZ, Denny Vidales Attending Clinician Galileo BLANKENSHIP, Yanet Garcia Attending Clinician Conrad BLUNT, Beck Barksdale Attending Clinician Unavailable KRISTINA BLAKE Attending Clinician Unavailable Breezy LOVE, Mishel Attending Clinician Evi Turner APN Attending Clinician DRU SMITH Attending Clinician Unavailable CJ COYNE Attending Clinician Unavailable Geena Espinosa PT Attending Clinician Denny Nayak MD Attending Clinician Unavailable Mari Lovell NP Attending Clinician Cj Coyne NP Attending Clinician RANDOLPH PAYNE Attending Clinician Unavailable KIARA PATEL Attending Clinician Unavailable MIGDALIA KRUGER Attending Clinician Unavailable Kylie Mensah Attending Clinician JURGEN QUEEN Attending Clinician Unavailable CHANO WILLAMS Attending Clinician Unavailable ESTELLA PRIEST Attending Clinician Unavailable ELISA CAMPOS Attending Clinician Unavailable MILAGRO ALFARO JR Attending Clinician Unavailable JESENIA ALDRICH Attending Clinician Unavailable NAS ARRIOLA Attending Clinician Unavailable ERNESTINA ARIAS Attending Clinician Unavailable ANGELO WRAY Attending Clinician Unavailable AFIA CASTAÑEDA Attending Clinician Unavailable Only, Adc Test Attending Clinician Unavailable Nicole Cheek DO Attending Clinician Eugenia Benedict Attending Clinician [id number] Admitting Clinician Unavailable NINA REYNOSO Admitting Clinician Unavailable MOSES TORBIIO Admitting Clinician Unavailable BETH ADEN Admitting Clinician Unavailable RANDOLPH PAYNE Admitting Clinician Unavailable DRU SMITH Admitting Clinician Unavailable Eugenia Benedict Admitting Clinician Payers Payer Name Policy Type Policy Number Effective Date Expiration Date S ourlb [employer] CHOICE [id number] 2020 MEDICARE PPO 00:00:00 [employer] MEDICARE [id number] 2020 ADV 00:00:00 Problems Condition Condition Condition Status Onset Resolution Last Treating Co mments Source Name Details Category Date Date Treatment Clinician Date Paroxysmal Paroxysmal Disease Active 2020-03 Last U nivers atrial atrial 2-21 Assessmen ity of fibrillati fibrillati 00:00: t & Plan: [place] on on Brigitte villagomez of this Anderso [...] 00:00: [place] infection infection [facility] Acute Acute Disease Active [facility] respirator respirator 09-29 it y of y failure y failure 00:00: [place] with with 00 hypoxia hypoxia [facility] Pneumonia Pneumonia Disease Active Uni vers due to due to 09-29 ity of other other 00:00: [place] specified specified 00 bacteria bacteria [facility] Severe Severe Disease Active [facility] sepsis sepsis 09-29 ity of with with 00:00: [place] septic septic 00 shock shock [facility] Bilateral Bilateral Disease Active Uni vers pneumonia pneumonia 09-29 ity of 00:00: [place] 00 [facility] 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 09-29 ity of neoplastic neoplastic [place] disease disease 00 [place] [facility] Chronic Chronic Disease Active Univers obstructiv obstructiv 6- it y of e e 00:00: [place] pulmonary pulmonary 00 disease disease [facility] 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 [facility] Mass of [place] of Disease Active Univers neck neck 6-14 ity of 00:00: [place] 00 MD [facility] History of History of Disease Active U kerry myocardial myocardial 6-14 it y of infarction [place] [facility] History of History of Disease Active U nivers placement placement 6-14 ity of of stent of stent 00:00: [place] for for 00 coronary coronary Herman o [...] 00:00: [place] involving involving 00 Medi [place] coronary coronary artery of artery of [place] heart without without angina angina pectoris [...] 00:00: [place] involving involving 00 Medi [place]ichael [place] coronary coronary artery of artery of [place] heart without without angina angina pectoris pectoris Coronary Coronary Disease Active 2016-03 Unive rs artery artery 2-13 ity of disease disease 00:00: [place] involving involving 00 Medi michael [place] coronary coronary artery of artery of [place] heart without without angina angina pectoris pectoris 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 2-11 it y of t status t status 00:00: [place] 00 [facility] ACUTE ACUTE Diagnosis Active 2016-07-19 Mem oria CHEST PAIN CHEST PAIN 06-15 21:59:00 l Active 00:00: [place] 06/15/[address] [facility] NSTEMI NSTEMI Diagnosis Active 2016-06-15 Me moria Active 06-15 11:09:00 l 06/15/2016 00:00: Rafat n 00 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 lymphoma, lymphoma, lymph lymph [facility] nodes of nodes of Medica l head, head, Center face, and face, and neck neck Anemia of Anemia due Problem Active Co mmon chronic to stage 3 Spiri t renal chronic - CHI failure kidney [facility] [id number] ED Problem Active Common (erectile Spirit dysfunctio - CHI n) of [facility] [id number] PSA Problem Active Common elevation [facility] - [facility] CHEST CHEST Diagnosis Active 2016-07-19 Mem oria PAIN, PAIN, 21:59:00 l UNSPECIFIE UNSPECIFIE He rmann D D Active 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 carrier ity of Yaima archuleta [facility] History of History of Disease [facility] hepatitis hepatitis ity of C C Yaima archuleta [facility] Long-term Long-term Disease Active Uni vers current current ity of use of use of [place] rituximab rituximab MD Camryn archuleta [facility] Patient Patient Disease Active Univers immunocomp immunocomp it y of romised romised [place] MD Camryn archuleta [facility] Acute Acute Disease Active Univers injury of injury of ity of kidney kidney [place] MD Camryn archuleta [facility] Hyperurice Hyperurice Disease Active U nivers damien damien ity of Yaima archuleta [facility] Chronic Chronic Disease Active Last Univers right-side right-side Assessmen ity of d heart d heart t & Plan: [place] failure failure Brigitte LOVE g of this Anderso note n might [...] twice daily. Bloodstrea Bloodstrea Disease Active U nivers m m ity of infection [place] due to due to MD central central Andcharles venous venous n catheter catheter [facility] Pneumonia Pneumonia Disease Active Uni vers due to due to ity of Pseudomona Pseudomona [place] vidales MD [facility] Sepsis Sepsis Disease Active Univers caused by caused by ity of Pseudomona Pseudomona [place] vidales MD aeruginosa aeruginosa An derso [facility] Acute Acute Disease Active Univers kidney kidney ity of failure failure [place] with with MD lesion of lesion of Jay rso tubular tubular n necrosis necrosis [facility] Persistent Persistent Disease Active U nivers atrial atrial ity of fibrill[place] fibrillati [place] on [facility] Toxic Toxic Disease Active Univers metabolic metabolic ity of encephalop encephalop [place] x[place] freire MD [facility] 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 mouna Erwin MD [facility] Chronic Chronic Disease Active Univers systolic systolic ity of congestive congestive [place] heart heart failure failure [facility] 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 [place] carley howe MD [facility] Other Other Disease Active Univers elevated elevated ity of white white [place] blood cell blood cell count count [facility] Electrolyt Electrolyt Disease Active U nivers e and e and ity of fluid fluid Yaima disorders disorders not not [facility] elsewhere n classified classified [facility] Anemia due Anemia, Problem Active Comm on to blood blood loss Spir it loss - [facility] Anemia Anemia due Problem Active Commo n caused by to Spirit chemothera antineopla - [facility] [id number] BPH loc w Problem Active Com mon urin Spirit obs/LUTS - [facility] Mild Mild Problem Resolve 2018-08-06 2018-08-06 Memoria chronic chronic d 03-27 13:34:33 13:34:33 l obstructiv obstructiv 00:00: He valente larissa gallagher 00 pulmonary pulmonary disease disease (disorder) (disorder) Resolved 03/27/2012 Problem 08/06/2018 [facility] Allergies, Adverse Reactions, Alerts Allergy Allergy Status Severity Reaction(s) Onset Inactive Treating Comm ents Source Name Type Date Date Clinician Povidone Propensi Active Rash Univer s -Iodine ty to 09-16 ity of adverse 00:00: [place] reaction MD flash archuleta [facility] Povidone Propensi Active Hives Univer s -Iodine ty to 07-07 ity of adverse 00:00: [place] reaction 00 Medical s [place] POVIDONE DRUG Active Hives Univers -IODINE INGREDI 07-07 ity of 00:00: [place] 00 Medical Branch Betadine Betadine Active Memori a l Ty povidone povidone Active RASH Common -iodine -iodine [facility] NO KNOWN Allergy [facility] Social History Social Habit Start Date Stop Date Quantity Comments Source History of Tobacco Common Spirit - Use [facility] History SDOH [facility] Alcohol Comment Medical C enter History SDOH [facility] Alcohol Std Drinks [facility]ica Center History SDOH [facility] Alcohol Binge Medical Jose ter Gender identity Universit y [facility] Sexual orientation [place] [facility] Alcohol intake 2020-09-11 2020-09-[address] [facility] 00:00:00 00:00:00 [facility] Tobacco use and 2020-09-07 2020-09-[address] Jessika kes exposure 00:00:00 00:00:00 tobacco non-user [facility] Center Tobacco Comment 2020-09-07 2020-09-07 stopped smoking [facility] of 00:00:00 00:00:00 15 years ago Yaima LOVE And [facility] Cigarettes smoked 2020-09-07 2020-09-07 Univers ity of current (pack per 00:00:00 00:00:00 Yaima Barrientos ) - Reported Cancer Ce nter Cigarette 2020-09-07 2020-09-07 University of pack-years 00:00:00 00:00:00 [facility] History SDOH 2020-09-07 2020-09-[address] [facility] Alcohol Frequency 00:00:00 00:00:00 Medical Center History of Social 2019-10-30 2019-10-30 Univers ity of function 00:00:00 00:00:00 [facility] Sex Assigned At [address] [facility] Jessika bruce 00:00:00 00:00:00 [facility] Center Smoking Status Start Date Stop Date Source Never smoked tobacco [facility] Social History 2016-06-15 16:58:56 2016-06-15 16:58:56 [facility] Medications Ordered Filled Start Stop Current Ordering Indication Dosage Frequency Signature Comments Components Source Medication Medication Date Date Medication? Clinician (SIG) Name Name [facility] Yes 1{tbl} Take 1 Un osvaldo ate 8-21 tablet by ity of (sennosides 14:36: mouth [place] -docusate 14 twice MD sodium) 8.6 daily. Herman o mg-50 mg Hold for n tablet loose Cancer stools. [facility] Yes 1{tbl} Take 1 Un osvaldo ate 8-21 tablet by ity of (sennosides 14:36: mouth [place] -docusate 14 twice MD sodium) 8.6 daily. Herman o mg-50 mg Hold for n tablet loose Cancer stools. [facility] Yes 1{tbl} Take 1 Un osvaldo ate 8-21 tablet by ity of (sennosides 14:36: mouth [place] -docusate 14 twice MD sodium) 8.6 daily. Herman o mg-50 mg Hold for n tablet loose Cancer stools. [facility] Yes 1{tbl} Take 1 Un osvaldo ate 8-21 tablet by ity of (sennosides 14:36: mouth [place] -docusate 14 twice MD sodium) 8.6 daily. Herman o mg-50 mg Hold for n tablet loose Cancer stools. [facility] Yes 1{tbl} Take 1 Un osvaldo ate 8-21 tablet by ity of (sennosides 14:36: mouth [place] -docusate 14 twice MD sodium) 8.6 daily. Herman o mg-50 mg Hold for n tablet loose Cancer stools. [place] sennadocus Yes 1{tbl} Take 1 Un osvaldo ate 8-21 tablet by ity of (sennosides 14:36: mouth [place] -docusate 14 twice MD sodium) 8.6 daily. Herman o mg-50 mg Hold for n tablet loose Cancer stools. [place] entecavir Yes Hepatitis B .5mg Take 1 [...] mg) by [place] tablet 00 lymphoma mouth MD daily. Anderso Hold for n systolic Cancer blood Center pressure less than 110 mmHg. torsemide Yes Diffuse 20mg Take 1 Uni vers (DEMADEX) 8-12 high grade tablet (20 ity of 20 mg 00:00: B-cell mg) by [place] tablet 00 lymphoma mouth MD daily. Anderso Hold for n systolic Cancer blood Center pressure less than 110 mmHg. torsemide Yes Diffuse 20mg Take 1 Uni vers (DEMADEX) 8-12 high grade tablet (20 ity of 20 mg 00:00: B-cell mg) by [place] tablet 00 lymphoma mouth MD daily. Anderso Hold for n systolic Cancer blood Center pressure less than 110 mmHg. torsemide Yes Diffuse 20mg Take 1 Uni vers (DEMADEX) 8-12 high grade tablet (20 ity of 20 mg 00:00: B-cell mg) by [place] tablet 00 lymphoma mouth MD daily. Anderso Hold for n systolic Cancer blood Center pressure less than 110 mmHg. torsemide Yes Diffuse 20mg Take 1 Uni vers (DEMADEX) 8-12 high grade tablet (20 ity of 20 mg 00:00: B-cell mg) by Yaima tablet 00 lymphoma mouth daily. Anderso Hold for n systolic Cancer blood Center pressure less than 110 mmHg. torsemide Yes Diffuse 20mg Take 1 Uni vers (DEMADEX) 8-12 high grade tablet (20 ity of 20 mg 00:00: B-cell mg) by Yaima tablet 00 lymphoma mouth daily. Anderso Hold [...] ity of (LOPRESSOR) 00:00: B-cell mg) by [place] keller 25 mg 00 lymphoma mouth MD tablet every 12 Anderso (twelve) n hours. Cancer Hold for Center systolic blood pressure less than 110 mmHg or heart rate less than 60 beats per minute. apixaban Yes Diffuse 5mg Take 1 Univ ers (ELIQUIS) 5 8-11 high grade tablet (5 ity of mg tablet 00:00: B-cell mg) by [place] 00 lymphoma mouth every 12 Anderso (twelve) [...] mg) by [place] 00 lymphoma mouth every 12 Anderso (twelve) [...] ity of (LOPRESSOR) 00:00: B-cell mg) by [place] 25 mg 00 lymphoma mouth MD tablet every 12 Anderso (twelve) n hours. Cancer Hold for Center systolic blood pressure less than 110 mmHg or heart rate less than 60 beats per minute. apixaban Yes Diffuse 5mg Take 1 Univ ers (ELIQUIS) 5 8-11 high grade tablet (5 ity of mg tablet 00:00: B-cell mg) by [place] 00 lymphoma mouth every 12 Anderso (twelve) [...] [place]ie s 00 lymphoma mouth MD every 12 [...] Hepatitis B .5mg Take 1 Univers (BARACLUDE) 09-22- carrier tablet it y of 0.5 mg 00:00: 00:00 (0.5 mg) [place] tablet 00 :00 by mouth MD daily. [facility] entecavir 2020- No Hepatitis B .5mg Take 1 Univers (BARACLUDE) 09-22 carrier tablet it y of 0.5 mg 00:00: 00:00 (0.5 mg) [place] tablet 00 :00 by mouth MD daily. [facility] entecavir 2020- No Hepatitis B .5mg Take 1 Univers (BARACLUDE) 09-22 carrier tablet it y of 0.5 mg 00:00: 00:00 (0.5 mg) [place] tablet 00 :00 by mouth MD daily. [facility] sodium Yes Diffuse 10mL Swish and Uni vers chloride-so 09-21 high grade spit 10 mL ity of dium 00:00: B-cell every 6 [place] bicarbonate 00 lymphoma (six) MD (SALT AND hours. Use Jay rso SODA) 2 n mouthwash teaspoon Can er and Center dissolve in 1 quart (960 [...] Jay rso SODA) 2 n mouthwash teaspoonfu Can er and Center dissolve in 1 quart (960 [...] needed for Center nausea or vomiting. valACYclovi 2021-0 Yes Diffuse 500mg Take 1 Univers r [...] of 40mg Take 1 Univers (LASIX) 40 611-14 myocardial tablet (40 ity of mg tablet 00:00: 00:00 infarction mg) by [place] 00 :00 mouth MD twice Anderso daily. [...] mg tablet 00:00: 00:00 infarction mg) by [place] 00 :00 mouth twice Anderso daily. n Hold for Cancer [...] mg 04 (two) Center Tab times daily. traMADoL Yes 50mg Take [address] (ULTRAM) 50 6-14 by mouth Luke s mg tablet 14:12: every 6 Medic al 04 (six) Center hours as needed for Pain. sacubitriL- Yes 1{tbl} Q.5D Take [address] valsartan 6-14 tablet by Lukes (Entresto) 14:12: mouth 2 Medi michael 24-26 mg 04 (two) Center Tab times daily. traMADoL Yes 50mg Take [address] (ULTRAM) 50 6-14 by mouth Luke s mg tablet 14:12: every 6 Medic al 04 (six) Center hours as needed for Pain. sacubitriL- 2020-0 Yes 1{tbl} Q.5D Take 1 CH I [...] [place] 00 DAILY MD [facility] montelukast Yes TAKE 1 Univ ers (SINGULAIR) 4-23 TABLET BY ity of 10 mg 00:00: MOUTH [place] tablet 00 DAILY MD [facility] potassium Yes 10meq Take 10 Univ ers chloride 4-23 mEq by ity of (MICRO-K) 00:00: mouth [place] 10 mEq CR 00 daily. capsule Hold for Camryn serum n potassium Cancer greater Center than 4.5 mEq/L clopidogrel Yes TAKE 1 Univ ers (PLAVIX) 75 4-23 TABLET BY ity of mg tablet 00:00: MOUTH [place] 00 DAILY MD [facility] montelukast Yes TAKE 1 Univ ers (SINGULAIR) 4-23 TABLET BY ity of 10 mg 00:00: MOUTH [place] tablet 00 DAILY MD [facility] potassium Yes 10meq Take 10 Univ ers chloride 4-23 mEq by ity of (MICRO-K) 00:00: mouth [place] 10 mEq CR 00 daily. capsule [facility] Cancer greater Center than 4.5 mEq/L clopidogrel Yes TAKE 1 Univ ers (PLAVIX) 75 4-23 TABLET BY ity of mg tablet 00:00: MOUTH [place] 00 DAILY MD [facility] montelukast Yes TAKE 1 Univ ers (SINGULAIR) 4-23 TABLET BY ity of 10 mg 00:00: MOUTH [place] tablet 00 DAILY MD Camryn archuleta [facility] potassium Yes 10meq Take 10 Univ ers chloride 4-23 mEq by ity of (MICRO-K) 00:00: mouth [place] 10 mEq CR 00 daily. capsule Hold for [facility] serum n potassium Cancer [facility] Center than 4.5 mEq/L clopidogrel Yes TAKE 1 Univ ers (PLAVIX) 75 4-23 TABLET BY ity of mg tablet 00:00: MOUTH [place] 00 DAILY [facility] montekast Yes TAKE 1 Univ ers (SINGULAIR) 4-23 TABLET BY ity of 10 mg 00:00: MOUTH [place] tablet 00 DAILY [facility] potassium Yes 10meq Take 10 Univ ers chloride 4-23 mEq by ity of (MICRO-K) 00:00: mouth [place] 10 mEq CR 00 daily. capsule Hold for [facility] serum n potassium Cancer [facility] Center than 4.5 mEq/L clopidogrel Yes TAKE 1 Univ ers (PLAVIX) 75 4-23 TABLET BY ity of mg tablet 00:00: MOUTH [place] 00 DAILY MD [facility] 1 Univ ers (SINGULAIR) 4-23 TABLET BY ity of 10 mg 00:00: MOUTH [place] tablet 00 DAILY MD Camryn archuleta [facility] potassium Yes 10meq Take 10 Univ ers chloride 4-23 mEq by ity of (MICRO-K) 00:00: mouth [place] 10 mEq CR 00 daily. capsule Hold for [facility] serum n potassium Cancer [facility] Center than 4.5 mEq/L clopidogrel Yes TAKE 1 Univ ers (PLAVIX) 75 4-23 TABLET BY ity of mg tablet 00:00: MOUTH [place] 00 DAILY MD [facility] Yes TAKE 1 Univ ers (SINGULAIR) 4-23 TABLET BY ity of 10 mg 00:00: MOUTH [place] tablet 00 DAILY MD Camryn archuleta [facility] potassium Yes 10meq Take 10 Univ ers chloride 4-23 mEq by ity of (MICRO-K) 00:00: mouth [place] 10 mEq CR 00 daily. capsule Hold for [facility] potassium [facility] than 4.5 mEq/L [facility] Yes TAKE 1 Univ ers n (LIPITOR) 4-13 TABLET BY ity of 80 mg 00:00: MOUTH [place] tablet 00 DAILY AT [facility] atorvastati Yes TAKE 1 Univ ers n (LIPITOR) 4-13 TABLET BY ity of 80 mg 00:00: MOUTH [place] tablet 00 DAILY AT [facility] atorvastati Yes TAKE 1 Univ ers n (LIPITOR) 4-13 TABLET BY ity of 80 mg 00:00: MOUTH [place] tablet 00 DAILY AT [facility] atorvastati Yes TAKE 1 Univ ers n (LIPITOR) 4-13 TABLET BY ity of 80 mg 00:00: MOUTH [place] tablet 00 DAILY AT [facility] atorvasta Yes TAKE 1 Univ ers n (LIPITOR) 4-13 TABLET BY ity of 80 mg 00:00: MOUTH [place] tablet 00 DAILY AT [facility] atorvasta Yes TAKE 1 Univ ers n (LIPITOR) 4-13 TABLET BY ity of 80 mg 00:00: MOUTH [place] tablet 00 DAILY AT [facility] levothyroxi Yes TAKE 1 Univ ers ne 4-08 TABLET BY ity of (SYNTHROID, 00:00: MOUTH [place] LEVOTHROID) 00 DAILY 25 mcg Anderso tablet [place] [id number] Yes 5mg Take 5 mg U nivers mg tab 4-08 by mouth ity of 00:00: daily. [facility] levothyroxi Yes TAKE 1 Univ ers ne 4-08 TABLET BY ity of (SYNTHROID, 00:00: MOUTH [place] LEVOTHROID) 00 DAILY 25 mcg Anderso tablet [place] [id number] Yes 5mg Take 5 mg U nivers mg tab 4-08 by mouth ity of 00:00: daily. [facility] levothyroxi 2021-0 Yes TAKE 1 Univ ers ne 4-08 TABLET BY ity of (SYNTHROID, 00:00: MOUTH [place] LEVOTHROID) 00 DAILY 25 mcg Anderso tablet n [email or web address] 5 0 Yes 5mg Take 5 mg U nivers mg tab 4-08 by mouth ity of 00:00: daily. MD Camryn archuleta [facility] levothyroxi Yes TAKE 1 Univ ers ne 4-08 TABLET BY ity of (SYNTHROID, 00:00: MOUTH [place] LEVOTHROID) 00 DAILY 25 mcg Anderso tablet n [facility] [[email or web address]] 5 0 Yes 5mg Take 5 mg U nivers mg tab 4-08 by mouth ity of 00:00: daily. MD Camryn archuleta [facility] levothyroxi Yes TAKE 1 Univ ers ne 4-08 TABLET BY ity of (SYNTHROID, 00:00: MOUTH [place] LEVOTHROID) 00 DAILY 25 mcg Anderso tablet n [place] [id number] Yes 5mg Take 5 mg U nivers mg tab 4-08 by mouth ity of 00:00: daily. MD Camryn archuleta [facility] levothyroxi Yes TAKE 1 Univ ers ne 4-08 TABLET BY ity of (SYNTHROID, 00:00: MOUTH [place] LEVOTHROID) 00 DAILY 25 mcg Anderso tablet n [place] [id number] Yes 5mg Take 5 mg U nivers mg tab 4-08 by mouth ity of 00:00: daily. MD Camryn archuleta [facility] [place] rOPINIRole 0 Yes 1mg Take 1 mg Un osvaldo (REQUIP) 1 3-24 by mouth 2 ity of mg tablet 00:00: (two) [place] 00 times a MD day as Anderso needed n (restless Cancer legs). [place] rOPINIRole 2020-0 Yes 1mg Take 1 mg [facility] (REQUIP) 1 3-24 by mouth 2 ity of mg tablet 00:00: (two) [place] 00 times a MD day as Anderso needed n (restless Cancer legs). [place] rOPINIRole 0 Yes 1mg Take 1 mg Un [facility] (REQUIP) 1 3-24 by mouth 2 ity of mg tablet 00:00: (two) [place] 00 times a MD day as Anderso needed n (restless Cancer legs). [place] rOPINIRole Yes 1mg Take 1 mg Un [facility] (REQUIP) 1 3-24 by mouth 2 ity of mg tablet 00:00: (two) [place] 00 times a MD day as Anderso needed n (restless Cancer legs). [place] rOPINIRole Yes 1mg Take 1 mg Un [facility] (REQUIP) 1 3-24 by mouth 2 ity of mg tablet 00:00: (two) [place] 00 times a MD day as Anderso needed n (restless Cancer legs). [place] rOPINIRole Yes 1mg Take 1 mg Un [facility] (REQUIP) 1 3-24 by mouth 2 ity of mg tablet 00:00: (two) [place] 00 times a MD day as Anderso needed n (restless Cancer legs). [place] aspirin 81 0 2020- No 81mg Take 81 mg Univers mg EC 04-27 by mouth ity of tablet 00:00: 00:00 daily. [place] 00 :00 MD Cow[facility] aspirin 81 0 2020- No 81mg Take 81 mg Univers mg EC 04-27 by mouth ity of tablet 00:00: 00:00 daily. [place] 00 :00 MD Camryn archuleta [facility] aspirin 81 0 2020- No 81mg Take 81 mg Univers mg EC 04-27 by mouth ity of tablet 00:00: 00:00 daily. [place] 00 :00 MD Camryn archuleta [facility] pantoprazol 2019-03 Yes 40mg Take 40 mg Univers e 1-04 by mouth ity of (PROTONIX) 00:00: daily with [place] 40 mg EC 00 breakfast. MD lluvia archuleta [facility] pantoprazol 2019-03 Yes 40mg Take 40 mg Univers e 1-04 by mouth ity of (PROTONIX) 00:00: daily with [place] 40 mg EC 00 breakfast. MD lluvia archuleta [facility] pantoprazol 2019-03 Yes 40mg Take 40 mg Univers e 1-04 by mouth ity of (PROTONIX) 00:00: daily with [place] 40 mg EC 00 breakfast. MD lluvia [facility] pantoprazol 2019-1 Yes 40mg Take 40 mg Univers e 1-04 by mouth ity of (PROTONIX) 00:00: daily with [place] 40 mg EC 00 breakfast. [facility] Yes 40mg Take 40 mg Univers e -04 by mouth ity of (PROTONIX) 00:00: daily with [place] 40 mg EC 00 breakfast. [facility]1 Yes 40mg Take 40 mg Univers e -04 by mouth ity of (PROTONIX) 00:00: daily with [place] 40 mg EC 00 breakfast. MD lluvia Cowan [facility] levocetiriz 2020-0 Yes 5mg Take 5 mg U nivers ine (XYZAL) 7-16 by mouth ity of 5 MG tablet 00:00: every [place] 00 evening. MD Camryn archuleta [facility] levocetiriz 2020-0 Yes 5mg Take 5 mg U nivers ine (XYZAL) 7-16 by mouth ity of 5 MG tablet 00:00: every [place] 00 evening. MD Camryn archuleta [facility] levocetiriz 2020-0 Yes 5mg Take 5 mg U nivers ine (XYZAL) 7-16 by mouth ity of 5 MG tablet 00:00: every [place] 00 evening. MD Camryn archuleta [facility] levocetiriz 2020-0 Yes 5mg Take 5 mg U nivers ine (XYZAL) 7-16 by mouth ity of 5 MG tablet 00:00: every [place] 00 evening. MD Camryn archuleta [facility] levocetiriz 2020-0 Yes 5mg Take 5 mg U nivers ine (XYZAL) 7-16 by mouth ity of 5 MG tablet 00:00: every [place] 00 evening. MD Camryn archuleta [facility] levocetiriz 2020-0 Yes 5mg Take 5 mg U nivers ine (XYZAL) 7-16 by mouth ity of 5 MG tablet 00:00: every [place] 00 evening. MD Camryn archuleta [facility] albuterol 2020-0 Yes 1{puff} Inhale 1-2 Univers [...] or shortness of breath. tiotropium 2020-0 Yes [id number] 18ug Inhale 1 Univers (SPIRIVA 4-16 capsule ity of WITH 00:00: daily. [place] HANDIHALER) 00 Medical 18 mcg Branch inhalation tiotropium 2020-0 Yes [id number] 18ug Inhale 1 Univers (SPIRIVA 4-16 capsule ity of WITH 00:00: daily. [place] HANDIHALER) 00 Medical 18 mcg Branch inhalation tiotropium 2020-0 Yes [id number] 18ug Inhale 1 Univers (SPIRIVA 4-16 capsule ity of WITH 00:00: daily. [place] HANDIHALER) 00 Medical 18 mcg Branch inhalation tiotropium 2020-0 Yes [id number] 18ug Inhale 1 Univers (SPIRIVA 4-16 capsule ity of WITH 00:00: daily. [place] HANDIHALER) 00 Medical 18 mcg Branch inhalation tiotropium 2020-0 Yes [id number] 18ug Inhale 1 Univers (SPIRIVA 4-16 capsule ity of WITH 00:00: daily. [place] HANDIHALER) 00 Medical 18 mcg Branch inhalation tiotropium 2020-0 Yes [id number] 18ug Inhale 1 Univers (SPIRIVA 4-16 capsule ity of WITH 00:00: daily. [place] HANDIHALER) 00 Medical 18 mcg Branch inhalation tiotropium 2020-0 Yes [id number] 18ug Inhale 1 Univers (SPIRIVA 4-16 capsule ity of WITH 00:00: daily. [place] HANDIHALER) 00 Medical 18 mcg Branch inhalation pantoprazol 2020-0 Yes [id number] 40mg Take 1 Univers e 1-30 tablet by ity of (PROTONIX) 00:00: mouth [place] 40 mg EC 00 daily. Medical tablet Branch pantoprazol 2020-0 Yes [id number] 40mg Take 1 Univers e 1-30 tablet by ity of (PROTONIX) 00:00: mouth [place] 40 mg EC 00 daily. Medical tablet Branch pantoprazol 2020-0 Yes [id number] 40mg Take 1 Univers e 1-30 tablet by ity of (PROTONIX) 00:00: mouth [place] 40 mg EC 00 daily. Medical tablet Branch fluticasone 2020-0 Yes 2{spray Use 2 Un [facility] propionate 1-30 } Sprays in ity of 50 00:00: each [place] mcg/actuati 00 nostril Medic al on nasal daily. Branch spray pantoprazol 2020-0 Yes [id number] 40mg Take 1 Univers e 1-30 tablet by ity of (PROTONIX) 00:00: mouth [place] 40 mg EC 00 daily. Medical tablet Branch fluticasone 2020-0 Yes 2{spray Use 2 Un [facility] propionate 1-30 } Sprays in ity of 50 00:00: each [place] mcg/actuati 00 nostril Medic al on nasal daily. Branch spray pantoprazol 2020-0 Yes [id number] 40mg Take 1 Univers e 1-30 tablet by ity of (PROTONIX) 00:00: mouth [place] 40 mg EC 00 daily. Medical tablet Branch fluticasone 2020-0 Yes 2{spray Use 2 Un [facility] propionate 1-30 } Sprays in ity of 50 00:00: each [place] mcg/actuati 00 nostril Medic al on nasal daily. Branch spray pantoprazol 2020-0 Yes [id number] 40mg Take 1 Univers e 1-30 tablet by ity of (PROTONIX) 00:00: mouth [place] 40 mg EC 00 daily. Medical tablet Branch fluticasone 2020-0 Yes 2{spray Use 2 Un [facility] propionate 1-30 } Sprays in ity of 50 00:00: each [place] mcg/actuati 00 nostril Medic al on nasal daily. Branch spray pantoprazol 2020-0 Yes [id number] 40mg Take 1 Univers e 1-30 tablet by ity of (PROTONIX) 00:00: mouth [place] 40 mg EC 00 daily. Medical tablet Branch fluticasone 2020-0 Yes 2{spray Use 2 Un [facility] propionate 1-30 } Sprays in ity of 50 00:00: each [place] mcg/actuati 00 nostril Medic al on nasal daily. Branch spray pantoprazol 2020-0 Yes [id number] 40mg Take 1 Univers e 1-30 tablet by ity of (PROTONIX) 00:00: mouth [place] 40 mg EC 00 daily. Medical tablet Branch fluticasone 2020-0 Yes 2{spray Use 2 Un [facility] propionate 1-30 } Sprays in ity of 50 00:00: each [place] mcg/actuati 00 nostril Medic al on nasal daily. Branch spray pantoprazol 2020-0 Yes [id number] 40mg Take 1 Univers e 1-30 tablet by ity of (PROTONIX) 00:00: mouth [place] 40 mg EC 00 daily. Medical tablet Branch fluticasone 2020-0 Yes 2{spray Use 2 Un [facility] propionate 1-30 } Sprays in ity of 50 00:00: each [place] mcg/actuati 00 nostril Medic al on nasal daily. Branch spray pantoprazol 2020-0 Yes [id number] 40mg Take 1 Univers e 1-30 tablet by ity of (PROTONIX) 00:00: mouth [place] 40 mg EC 00 daily. Medical tablet Branch fluticasone 2020-0 Yes 2{spray Use 2 [facility] propionate 1-30 } Sprays in ity of 50 00:00: each [place] mcg/actuati 00 nostril Medic al on nasal daily. Branch spray fluticasone 2019-0 Yes [id number] 1{puff} Inhale 1 Univers -salmeterol 5-23 Puff every it y of (ADVAIR 00:00: 12 [place] DISKUS) 00 (twelve) Medical 250-50 hours. Branch mcg/dose inhalation disk fluticasone 2019-0 Yes [id number] 1{puff} Inhale 1 Univers -salmeterol 5-23 Puff every it y of (ADVAIR 00:00: 12 [place] DISKUS) 00 (twelve) Medical 250-50 hours. Branch mcg/dose inhalation disk fluticasone 2019-0 Yes [id number] 1{puff} Inhale 1 Univers -salmeterol 5-23 Puff every it y of (ADVAIR 00:00: 12 [place] DISKUS) 00 (twelve) Medical 250-50 hours. Branch mcg/dose inhalation disk fluticasone 2019-0 Yes [id number] 1{puff} Inhale 1 Univers -salmeterol 5-23 Puff every it y of (ADVAIR 00:00: 12 [place] DISKUS) 00 (twelve) Medical 250-50 hours. Branch mcg/dose inhalation disk fluticasone 2019-0 Yes [id number] 1{puff} Inhale 1 Univers -salmeterol 5-23 Puff every it y of (ADVAIR 00:00: 12 [place] DISKUS) 00 (twelve) Medical 250-50 hours. Branch mcg/dose inhalation disk fluticasone 2019-0 Yes [id number] 1{puff} Inhale 1 Univers -salmeterol 5-23 Puff every it y of (ADVAIR 00:00: 12 [place] DISKUS) 00 (twelve) Medical 250-50 hours. Branch mcg/dose inhalation disk fluticasone 2019-0 Yes [id number] 1{puff} Inhale 1 Univers -salmeterol 5-23 Puff every it y of (ADVAIR 00:00: 12 [place] DISKUS) 00 (twelve) Medical 250-50 hours. Branch mcg/dose inhalation disk fluticasone 2019-0 Yes [id number] 1{puff} Inhale 1 Univers -salmeterol 5-23 Puff every it y of (ADVAIR 00:00: 12 [place] DISKUS) 00 (twelve) Medical 250-50 hours. Branch mcg/dose inhalation disk fluticasone 2019-0 Yes [id number] 1{puff} Inhale 1 Univers -salmeterol 5-23 Puff every it y of (ADVAIR 00:00: 12 [place] DISKUS) 00 (twelve) Medical 250-50 hours. Branch mcg/dose inhalation disk fluticasone 2019-0 Yes [id number] 1{puff} Inhale 1 Univers -salmeterol 5-23 Puff every it y of (ADVAIR 00:00: 12 [place] DISKUS) 00 (twelve) Medical 250-50 hours. Branch mcg/dose inhalation disk fluticasone 2019-0 Yes [id number] 1{puff} Inhale 1 Univers -salmeterol 5-23 Puff every it y of (ADVAIR 00:00: 12 [place] DISKUS) 00 (twelve) Medical 250-50 hours. Branch mcg/dose inhalation disk fluticasone 2019-0 Yes [id number] 1{puff} Inhale 1 Univers -salmeterol 5-23 Puff every it y of (ADVAIR 00:00: 12 [place] DISKUS) 00 (twelve) Medical 250-50 hours. Branch mcg/dose inhalation disk fluticasone 2019-0 Yes [id number] 1{puff} Inhale 1 Univers -salmeterol 5-23 Puff every it y of (ADVAIR 00:00: 12 [place] DISKUS) 00 (twelve) Medical 250-50 hours. Branch mcg/dose inhalation disk fluticasone 2019-0 Yes [id number] 1{puff} Inhale 1 Univers -salmeterol 5-23 Puff every it y of (ADVAIR 00:00: 12 [place] DISKUS) 00 (twelve) Medical 250-50 hours. Branch mcg/dose inhalation disk fluticasone 2019-0 Yes [id number] 1{puff} Inhale 1 Univers -salmeterol 5-23 Puff every it y of (ADVAIR 00:00: 12 [place] DISKUS) 00 (twelve) Medical 250-50 hours. Branch mcg/dose inhalation disk fluticasone 2019- Yes [id number] 1{puff} Inhale 1 Univers -salmeterol 5-23 Puff every it y of (ADVAIR 00:00: 12 [place] DISKUS) 00 (twelve) Medical 250-50 hours. Branch mcg/dose inhalation disk fluticasone 2019-0 Yes [id number] 1{puff} Inhale 1 Univers -salmeterol 5-23 Puff every it y of (ADVAIR 00:00: 12 [place] DISKUS) 00 (twelve) Medical 250-50 hours. Branch mcg/dose inhalation disk clopidogrel 2017 Yes TK 1 T PO U nivers 75 mg 0-11 QD ity of tablet 00:00: [place] [facility] clopidogrel 2017 Yes TK 1 T PO U nivers 75 mg 0-11 QD ity of tablet 00:00: [place] [facility] clopidogrel 2016-03 Yes TK 1 T PO U nivers 75 mg 0-11 QD ity of tablet 00:00: [place] [facility] clopidogrel 2017 Yes TK 1 T PO U nivers 75 mg 0-11 QD ity of tablet 00:00: [place] [facility] clopidogrel 2017 Yes TK 1 T PO U nivers 75 mg 0-11 QD ity of tablet 00:00: [place] [facility] clopidogrel 2017 Yes TK 1 T PO U nivers 75 mg 0-11 QD ity of tablet 00:00: [place] [facility] clopidogrel 2017 Yes TK 1 T PO U nivers 75 mg 0-11 QD ity of tablet 00:00: [place] [facility] clopidogrel 2017 Yes TK 1 T PO U nivers 75 mg 0-11 QD ity of tablet 00:00: [place] [facility] clopidogrel 2017 Yes TK 1 T PO U nivers 75 mg 0-11 QD ity of tablet 00:00: [place] [facility] clopidogrel 2017 Yes TK 1 T PO U nivers 75 mg 0-11 QD ity of tablet 00:00: [place] [facility] clopidogrel 2016-03 Yes TK 1 T PO U nivers 75 mg 0-11 QD ity of tablet 00:00: [place] [facility] clopidogrel 2016-03 Yes TK 1 T PO U nivers 75 mg 0-11 QD ity of tablet 00:00: [place] [facility] clopidogrel 2017 Yes TK 1 T PO U nivers 75 mg 0-11 QD ity of tablet 00:00: [place] [facility] Branch clopidogrel 2017- Yes TK 1 T PO U nivers 75 mg 0-11 QD ity of tablet 00:00: [place] [facility] Branch clopidogrel 2017- Yes TK 1 T PO U nivers 75 mg 0-11 QD ity of tablet 00:00: [place] [facility] Branch clopidogrel 2017- Yes TK 1 T PO U nivers 75 mg 0-11 QD ity of tablet 00:00: [place] [facility] Branch clopidogrel 2017- Yes TK 1 T PO U nivers 75 mg 0-11 QD ity of tablet 00:00: [place] [facility] Branch aspirin 81 2017-0 Yes TK 1 T PO Un [facility] mg EC 9-29 D ity of tablet 00:00: [place] [facility] aspirin 81 2017-0 Yes TK 1 T PO Un [place] mg EC - D ity of tablet 00:00: [place] [facility] aspirin 81 2017-0 Yes TK 1 T PO Un [place] mg EC - D ity of tablet 00:00: [place] [facility] aspirin 81 2017-0 Yes TK 1 T PO Un [place] mg EC - D ity of tablet 00:00: [place] [facility] aspirin 81 2017-0 Yes TK 1 T PO Un [place] mg EC - D ity of tablet 00:00: [place] [facility] aspirin 81 2017-0 Yes TK 1 T PO Un [place] mg EC - D ity of tablet 00:00: [place] [facility] aspirin 81 2017-0 Yes TK 1 T PO Un [place] mg EC - D ity of tablet 00:00: [place] [facility] aspirin 81 2017-0 Yes TK 1 T PO Un osvaldo mg EC -29 D ity of tablet 00:00: [place] [facility] aspirin 81 2017-0 Yes TK 1 T PO Un [place] mg EC 9-29 D ity of tablet 00:00: [place] [facility] aspirin 81 2017-0 Yes TK 1 T PO Un osvaldo mg EC -29 D ity of tablet 00:00: [place] [facility] aspirin 81 2017-0 Yes TK 1 T PO Un osvaldo mg EC -29 D ity of tablet 00:00: [place] [facility] aspirin 81 2017-0 Yes TK 1 T PO Un [place]val[place] mg EC -29 D ity of tablet 00:00: [place] [facility] aspirin 81 Yes TK 1 T PO Un [place] mg EC 9-29 D ity of tablet 00:00: [place] [facility] aspirin 81 2017 Yes TK 1 T PO Un osvaldo mg EC 9-29 D ity of tablet 00:00: [place] [facility] aspirin 81 2017 Yes TK 1 T PO Un [place]val[place] mg EC 9-29 D ity of tablet 00:00: [place] [facility] aspirin 81 2017 Yes TK 1 T PO Un [place]val[place] mg EC 9-29 D ity of tablet 00:00: [place] [facility] aspirin 81 Yes TK 1 T PO Un [place]val[place] mg EC 9-29 D ity of tablet 00:00: [place] [facility] traMADOL 50 Yes TK 1 T PO U nivers mg tablet 8-18 TID PRN ity of 00:00: [place] [facility] traMADOL 50 Yes TK 1 T PO U nivers mg tablet 8-18 TID PRN ity of 00:00: [place] [address] Medical Branch traMADOL 50 Yes TK 1 T PO U nivers mg tablet 8-18 TID PRN ity of 00:00: [place] [address] Medical Branch traMADOL 50 Yes TK 1 T PO U nivers mg tablet 8-18 TID PRN ity of 00:00: [place] [facility] traMADOL 50 Yes TK 1 T PO U nivers mg tablet 8-18 TID PRN ity of 00:00: [place] [facility] traMADOL 50 Yes TK 1 T PO U nivers mg tablet 8-18 TID PRN ity of 00:00: [place] [facility] traMADOL 50 Yes TK 1 T PO U nivers mg tablet 8-18 TID PRN ity of 00:00: [place] [address] Medical Branch traMADOL 50 Yes TK 1 T PO U nivers mg tablet 8-18 TID PRN ity of 00:00: [place] [facility] traMADOL 50 Yes TK 1 T PO U nivers mg tablet 8-18 TID PRN ity of 00:00: [place] [address] Medical Branch traMADOL 50 Yes TK 1 T PO U nivers mg tablet 8-18 TID PRN ity of 00:00: [place] [facility] traMADOL 50 Yes TK 1 T PO U nivers mg tablet 8-18 TID PRN ity of 00:00: [place] [facility] traMADOL 50 Yes TK 1 T PO U nivers mg tablet 8-18 TID PRN ity of 00:00: [place] [facility] traMADOL 50 Yes TK 1 T PO U nivers mg tablet 8-18 TID PRN ity of 00:00: [place] [facility] traMADOL 50 Yes TK 1 T PO U nivers mg tablet 8-18 TID PRN ity of 00:00: [place] [facility] traMADOL 50 Yes TK 1 T PO U nivers mg tablet 8-18 TID PRN ity of 00:00: [place] [facility] traMADOL 50 Yes TK 1 T PO U nivers mg tablet 8-18 TID PRN ity of 00:00: [place] [facility] traMADOL 50 Yes TK 1 T PO U nivers mg tablet 8-18 TID PRN ity of 00:00: [place] [facility] metoprolol Yes TK 1 T PO Un [facility] succinate 8-09 QD ity of XL 25 mg 24 00:00: [place] hr tablet [facility] torsemide Yes 10mg Take 10 mg Un osvaldo 10 mg 8-09 by mouth ity of tablet 00:00: daily. [place] [facility] atorvastati Yes TK 1 T PO U nivers n 40 mg 8-09 QD ity of tablet 00:00: [place] [facility] metoprolol Yes TK 1 T PO Un osvaldo succinate 8-09 QD ity of XL 25 mg 24 00:00: [place] hr tablet [facility] torsemide Yes 10mg Take 10 mg Un osvaldo 10 mg 8-09 by mouth ity of tablet 00:00: daily. [place] [facility] atorvastati Yes TK 1 T PO U nivers n 40 mg 8-09 QD ity of tablet 00:00: [place] [facility] metoprolol Yes TK 1 T PO Un osvaldo succinate 8-09 QD ity of XL 25 mg 24 00:00: [place] hr tablet [facility] torsemide 2017-0 Yes 10mg Take 10 mg Un osvaldo 10 mg 8-09 by mouth ity of tablet 00:00: daily. [facility] atorvastati 2017 Yes TK 1 T PO U nivers n 40 mg 8-09 QD ity of tablet 00:00: [facility] metoprolol 2017 Yes TK 1 T PO Un osvaldo succinate 8-09 QD ity of XL 25 mg 24 00:00: [place] hr tablet [facility] torsemide 2017 Yes 10mg Take 10 mg Un osvaldo 10 mg 8-09 by mouth ity of tablet 00:00: daily. [facility] atorvastati Yes TK 1 T PO U nivers n 40 mg 8-09 QD ity of tablet 00:00: [facility] metoprolol Yes TK 1 T PO Un osvaldo succinate 8-09 QD ity of XL 25 mg 24 00:00: [place] hr tablet [facility] torsemide Yes 10mg Take 10 mg Un osvaldo 10 mg 8-09 by mouth ity of tablet 00:00: daily. [facility] atorvastati Yes TK 1 T PO U nivers n 40 mg 8-09 QD ity of tablet 00:00: [facility] metoprolol Yes TK 1 T PO Un osvaldo succinate 8-09 QD ity of XL 25 mg 24 00:00: [place] hr tablet [facility] torsemide Yes 10mg Take 10 mg Un osvaldo 10 mg 8-09 by mouth ity of tablet 00:00: daily. [facility] atorvastati 2017 Yes TK 1 T PO U nivers n 40 mg 8-09 QD ity of tablet 00:00: [facility] metoprolol 2017 Yes TK 1 T PO Un osvaldo succinate 8-09 QD ity of XL 25 mg 24 00:00: [place] hr tablet [facility] torsemide Yes 10mg Take 10 mg Un osvaldo 10 mg 8-09 by mouth ity of tablet 00:00: daily. [facility] atorvastati Yes TK 1 T PO U nivers n 40 mg 8-09 QD ity of tablet 00:00: [facility] atorvastati Yes TK 1 T PO U nivers n 40 mg 8-09 QD ity of tablet 00:00: [place] [facility] metoprolol 2017 Yes TK 1 T PO Un osvaldo succinate 8-09 QD ity of XL 25 mg 24 00:00: [place] hr tablet [facility] torsemide 2017 Yes 10mg Take 10 mg Un osvaldo 10 mg 8-09 by mouth ity of tablet 00:00: daily. [facility] atorvastati Yes TK 1 T PO U nivers n 40 mg 8-09 QD ity of tablet 00:00: [facility] metoprolol Yes TK 1 T PO Un osvaldo succinate 8-09 QD ity of XL 25 mg 24 00:00: [place] hr tablet [facility] torsemide Yes 10mg Take 10 mg Un osvaldo 10 mg 8-09 by mouth ity of tablet 00:00: daily. [facility] metoprolol Yes TK 1 T PO Un osvaldo succinate 8-09 QD ity of XL 25 mg 24 00:00: [place] hr tablet [facility] atorvastati Yes TK 1 T PO U nivers n 40 mg 8-09 QD ity of tablet 00:00: [place] [facility] metoprolol Yes TK 1 T PO Un osvaldo succinate 8-09 QD ity of XL 25 mg 24 00:00: [place] tablet [facility] torsemide Yes 10mg Take 10 mg Un osvaldo 10 mg 8-09 by mouth ity of tablet 00:00: daily. [facility] torsemide Yes 10mg Take 10 mg Un osvaldo 10 mg 8-09 by mouth ity of tablet 00:00: daily. [facility] atorvastati Yes TK 1 T PO U nivers n 40 mg 8-09 QD ity of tablet 00:00: [place] [facility] metoprolol 2017 Yes TK 1 T PO Un osvaldo succinate 8-09 QD ity of XL 25 mg 24 00:00: [place] hr tablet [facility] torsemide Yes 10mg Take 10 mg Un osvaldo 10 mg 8-09 by mouth ity of tablet 00:00: daily. [facility] atorvastati Yes TK 1 T PO U nivers n 40 mg 8-09 QD ity of tablet 00:00: [facility] metoprolol 2017 Yes TK 1 T PO Un osvaldo succinate 8-09 QD ity of XL 25 mg 24 00:00: [place] hr tablet [facility] torsemide [id number] Yes 10mg Take 10 mg Un osvaldo 10 mg 8-09 by mouth ity of tablet 00:00: daily. [facility] atorvastati 2017 Yes TK 1 T PO U nivers n 40 mg 8-09 QD ity of tablet 00:00: [facility] metoprolol 2017 Yes TK 1 T PO Un osvaldo succinate 8-09 QD ity of XL 25 mg 24 00:00: [place] hr tablet [facility] torsemide 2017 Yes 10mg Take 10 mg Un osvaldo 10 mg 8-09 by mouth ity of tablet 00:00: daily. [facility] atorvastati Yes TK 1 T PO U nivers n 40 mg 8-09 QD ity of tablet 00:00: [facility] metoprolol 2017 Yes TK 1 T PO Un osvaldo succinate 8-09 QD ity of XL 25 mg 24 00:00: [place] hr tablet [facility] torsemide [id number] Yes 10mg Take 10 mg Un osvaldo 10 mg 8-09 by mouth ity of tablet 00:00: daily. [facility] atorvastati Yes TK 1 T PO U nivers n 40 mg 8-09 QD ity of tablet 00:00: [place] [facility] metoprolol 2017 Yes TK 1 T PO Un osvaldo succinate 8-09 QD ity of XL 25 mg 24 00:00: [place] hr tablet [facility] torsemide [id number] Yes 10mg Take 10 mg Un osvaldo 10 mg 8-09 by mouth ity of tablet 00:00: daily. [facility] atorvastati Yes TK 1 T PO U nivers n 40 mg 8-09 QD ity of tablet 00:00: [place] [facility] metoprolol 2017 Yes TK 1 T PO Un osvaldo succinate 8-09 QD ity of XL 25 mg 24 00:00: [place] hr tablet [facility] torsemide [id number] Yes 10mg Take 10 mg Un osvaldo 10 mg 8-09 by mouth ity of tablet 00:00: daily. [facility] atorvastati 2017 Yes TK 1 T PO U nivers n 40 mg 8-09 QD ity of tablet 00:00: [place] [facility] levothyroxi 2017 Yes TK 1 T PO U nivers ne 25 mcg 8-08 QD ity of tablet 00:00: [place] [facility] levothyroxi 2017 Yes TK 1 T PO U nivers ne 25 mcg 8-08 QD ity of tablet 00:00: [place] [facility] levothyroxi 2017 Yes TK 1 T PO U nivers ne 25 mcg 8-08 QD ity of tablet 00:00: [place] [facility] levothyroxi 2017 Yes TK 1 T PO U nivers ne 25 mcg 8-08 QD ity of tablet 00:00: [place] [facility] levothyroxi 2017 Yes TK 1 T PO U nivers ne 25 mcg 8-08 QD ity of tablet 00:00: [place] [facility] levothyroxi 2017 Yes TK 1 T PO U nivers ne 25 mcg 8-08 QD ity of tablet 00:00: [place] [facility] levothyroxi 2017 Yes TK 1 T PO U nivers ne 25 mcg 8-08 QD ity of tablet 00:00: [place] [facility] levothyroxi 2017 Yes TK 1 T PO U nivers ne 25 mcg 8-08 QD ity of tablet 00:00: [place] [facility] levothyroxi Yes TK 1 T PO U nivers ne 25 mcg 8-08 QD ity of tablet 00:00: [place] [facility] levothyroxi 2017 Yes TK 1 T PO U nivers ne 25 mcg 8-08 QD ity of tablet 00:00: [place] [facility] levothyroxi 2017 Yes TK 1 T PO U nivers ne 25 mcg 8-08 QD ity of tablet 00:00: [place] [facility] levothyroxi 2017 Yes TK 1 T PO U nivers ne 25 mcg 8-08 QD ity of tablet 00:00: [place] [facility] levothyroxi Yes TK 1 T PO U nivers ne 25 mcg 8-08 QD ity of tablet 00:00: [place] [facility] levothyroxi Yes TK 1 T PO U nivers ne 25 mcg 8-08 QD ity of tablet 00:00: [place] [id number] [facility] levothyroxi Yes TK 1 T PO U nivers ne 25 mcg 8-08 QD ity of tablet 00:00: [place] [facility] levothyroxi Yes TK 1 T PO U nivers ne 25 mcg 8-08 QD ity of tablet 00:00: [place] [facility] levothyroxi Yes TK 1 T PO U nivers ne 25 mcg 8-08 QD ity of tablet 00:00: [address] lisinopril Yes 2.5 mg = 1 M emoria 2.5 mg oral 4-06 tab, PO, l tablet 13:46: Daily, # [place] 00 30 tab, 0 Refill(s) AMIODarone Yes 200 mg = 1 M emoria 200 mg oral 4-06 tab, PO, l tablet 13:46: BID, [place] 00 please start this regimen after 1 [...] tab, PO, l tablet 13:46: Daily, # [place] 00 30 tab, 0 Refill(s) atorvastati 2017 Yes 40 mg = 1 M emoria n 40 mg 4-06 tab, PO, l oral tablet 13:46: Bedtime, # [place] 00 30 tab, 0 Refill(s) aspirin 81 [...] Tablet # 14 tab, [Mucinex] 0 Refill(s) lisinopril Yes 2.5 mg = 1 M emoria 2.5 mg oral 4-06 tab, PO, l tablet 13:46: Daily, # [place] 00 30 tab, 0 Refill(s) AMIODarone Yes 200 mg = 1 M emoria 200 mg oral 4-06 tab, PO, l tablet 13:46: BID, [place] 00 please start this regimen after 1 [...] Tablet # 14 tab, [Mucinex] 0 Refill(s) lisinopril Yes 2.5 mg = 1 M emoria 2.5 mg oral 4-06 tab, PO, l tablet 13:46: Daily, # [place] 00 30 tab, 0 Refill(s) AMIODarone Yes 200 mg = 1 M emoria 200 mg oral 4-06 tab, PO, l tablet 13:46: BID, [place] 00 please start this regimen after 1 [...] INHALATION l 0.09 13:46: , QID, PRN [place] MG/ACTUAT 00 for Metered wheezing, Dose # 25 gm, 0 Inhaler Refill(s) [Proventil] Advair Yes 1 puff, Memoria Diskus 250 4-06 INHALATION l mcg-50 mcg 13:46: , BID, # cazares inhalation 00 60 puff, 0 powder Refill(s) torsemide Yes 10 mg = 1 Mem oria 10 mg oral 4-06 tab, PO, l tablet 13:46: Daily, # [place] 00 30 tab, 0 Refill(s) metoprolol Yes 25 mg = 1 Me moria 25 mg oral 4-06 tab, PO, l tablet, 13:46: Daily, # Rafat n extended 00 30 tab, 0 release Refill(s) clopidogrel Yes 75 mg = 1 M emoria 75 mg oral 4-06 tab, PO, l tablet 13:46: Daily, # [place] 00 30 tab, 0 Refill(s) atorvastati Yes 40 mg = 1 M emoria n 40 mg 4-06 tab, PO, l oral tablet 13:46: Bedtime, # [place] 00 30 tab, 0 Refill(s) aspirin 81 [...] a 4-05 (Same As: l 14:00: Demadex) [place] torsemide No Notes: Memori a 4-05 (Same As: l 14:00: Demadex) [place] torsemide No Notes: Memori a 4-05 (Same As: l 14:00: Demadex) [place] 00 Amiodarone No Notes: Memor ia 4-04 (Same as: l 14:06: Cordarone) [place] 00 Amiodarone No Notes: Memor ia 4-04 (Same as: l 14:06: Cordarone) [place] 00 Amiodarone No Notes: Memor ia 4-04 (Same as: l 14:06: Cordarone) [place] 00 metoprolol No Notes: Memor ia extended 4-04 (Same as: l release 14:00: Toprol XL) Herm jigna 00 Do Not Crush metoprolol No Notes: Memor ia extended 4-04 (Same as: l release 14:00: Toprol XL) Herm jigna 00 Do Not Crush metoprolol No Notes: Memor ia extended 4-04 (Same as: l release 14:00: Toprol XL) Herm jigna 00 Do Not Crush atorvastati No Notes: Danilo jerry n 4-04 (Same as: l 02:00: Lipitor) atorvastati No Notes: Danilo jerry n 4-04 (Same as: l 02:00: Lipitor) atorvastati No Notes: Danilo jerry n 4-04 (Same as: l 02:00: Lipitor) [place] 00 chlorhexidi No Notes: Danilo jerry ne [...] 40 MG/ML 00 Medicated Liquid Soap Glucagon 2017-0 No 1 mg, Memoria 4-02 Route: IM, l 15:21: Drug form: Ty 00 PDR/INJ, PRN, Dosing Weight 103.653, kg, PRN Blood Glucose Results, Start date: 06/26/16 10:21:00 CDT, Duration: 30 day, Stop date: 07/26/16 10:20:00 CDT Dextrose 2016-0 No 25 gm, 50 Danilo jerry 50% Syringe 4-02 mL, Route: l 15:21: IVP, Drug [place] 00 Form: INJ, Dosing Weight 103.653, kg, PRN, PRN Blood Glucose Results, Start date: 06/26/16 10:21:00 CDT, Duration: 30 day, Stop date: 07/26/16 10:20:00 CDT Insulin, 2016-0 No Notes: Memoria Aspart, 4-02 Roll in l Human 15:21: palms of [place] 00 hands gently; Do not shake vigorously . (Same as: NovoLOG) "single patient use only" WASTE: F/P - Black; E - [employer] Trash Bin Stable for 28 days at room temperatur e. Expires in days from ____Date Glucagon 2016-0 No 1 mg, Memoria 4 Route: IM, l 15:21: Drug form: Ty 00 PDR/INJ, PRN, Dosing Weight 103.653, kg, PRN Blood Glucose Results, Start date: 06/26/16 10:21:00 CDT, Duration: 30 day, Stop date: 07/26/16 10:20:00 CDT Dextrose 2016-0 No 25 gm, 50 Danilo jerry 50% Syringe 4-02 mL, Route: l 15:21: IVP, Drug [place] 00 Form: INJ, Dosing Weight 103.653, kg, PRN, PRN Blood Glucose Results, Start date: 06/26/16 10:21:00 CDT, Duration: 30 day, Stop date: 07/26/16 10:20:00 CDT Insulin, 2017-0 No Notes: Memoria Aspart, 4-02 Roll in l Human 15:21: palms of [place] 00 hands gently; Do not shake vigorously . (Same as: NovoLOG) "single patient use only" WASTE: F/P - Black; E - [employer] Trash Bin Stable for 28 days at room temperatur e. Expires in days from ____Date Glucagon No 1 mg, Memoria 4- Route: IM, l 15:21: Drug form: Ty [...] 10:20:00 CDT Insulin, No Notes: Memoria Aspart, - Roll in l Human 15:21: palms of hands gently; Do not shake vigorously . (Same as: NovoLOG) "single patient use only" WASTE: F/P - Black; E - [employer] Trash Bin Stable for 28 days at room temperatur e. Expires in days from ____Date Lasix No Notes: Memoria 4-02 (Same as: l 12:30: Lasix) [place] albumin No Notes: Memoria human 5% 4-02 LOT#: l intravenous 12:30: Ty solution 00 ___ Mfg: WASTE: F/P - Red; E -Red (Same as: Albuminar) "blood product derivative " Lasix No Notes: Memoria 4-02 (Same as: l 12:30: Lasix) [place] 00 albumin No Notes: Memoria human 5% 4-02 LOT#: l intravenous 12:30: [place] solution 00 ___ Mfg: WASTE: F/P - Red; E -Red (Same as: Albuminar) "blood product derivative " Lasix No Notes: Memoria 06-26 (Same as: l 12:30: Lasix) [place] albumin 0 No Notes: Memoria human 5% 06-26 LOT#: l intravenous 12:30: [place] solution 00 ___ Mfg: WASTE: F/P - Red; E -Red (Same as: Albuminar) "blood product derivative " glucagon No 1 mg, Memoria 06-26 Route: l 03:17: INJ, Drug [place] 00 form: PDR/INJ, PRN, PRN Blood Glucose Results, Start date: 06/25/16 22:17:00 CDT, Duration: 30 day, Stop date: 07/25/16 22:16:00 CDT Dextrose 0 No 50 mL, Memoria 50% in 06-26 Route: l Water IV 03:17: IVP, Start Her 00 date: 06/25/16 22:17:00 CDT, Duration: 30 day, Stop date: 07/25/16 22:16:00 CDT, PRN Blood Glucose Results insulin No Notes: Memoria aspart 06-26 Roll in l 03:17: palms of [place] hands gently; Do not shake vigorously . (Same as: NovoLOG) "single patient use only" WASTE: F/P - Black; E - [employer] Trash Bin Stable for 28 days at room temperatur e. Expires in days from ____Date glucagon 0 No 1 mg, Memoria 06-26 Route: l [...] Memoria 06-26 Route: l 03:17: INJ, Drug [place] 00 form: PDR/INJ, PRN, PRN Blood Glucose Results, Start date: 06/25/16 22:17:00 CDT, Duration: 30 day, Stop date: 07/25/16 22:16:00 CDT Dextrose No 50 mL, Memoria 50% in 06-26 Route: l Water IV 03:17: IVP, Start Her cazares date: 06/25/16 22:17:00 CDT, Duration: 30 day, [...] Lipitor) atorvastati No Notes: Danilo jerry n 4-02 (Same As: l 02:00: Lipitor) Lovenox 2016- No Notes: Memoria 4-02 (Same as: l 01:00: Lovenox) [place] 00 Lovenox No Notes: Memoria 4-02 (Same as: l 01:00: Lovenox) [place] 00 Lovenox No Notes: Memoria 4- (Same as: l 01:00: Lovenox) Dilaudid 2016-0 No 0.5 mg, Memori a 4-01 0.5 mL, l 23:54: Route: Ty 00 IVP, Drug form: INJ, ONCE, Dosing Weight 103.653, kg, Priority: STAT, Start date: 06/25/16 18:54:00 CDT, Stop date: 06/25/16 18:54:00 CDT Dilaudid 2016- No 0.5 mg, Memori a 4-01 0.5 mL, l 23:54: Route: Ty 00 IVP, Drug form: INJ, ONCE, Dosing Weight 103.653, kg, Priority: STAT, Start date: 06/25/16 18:54:00 CDT, Stop date: 06/25/16 18:54:00 CDT Dilaudid 2016-0 No 0.5 mg, Memori a 4-01 0.5 mL, l 23:54: Route: Ty 00 IVP, Drug form: INJ, ONCE, Dosing Weight 103.653, kg, Priority: STAT, Start date: 06/25/16 18:54:00 CDT, Stop date: 06/25/16 18:54:00 CDT pantoprazol No Notes: Danilo jerry e - Tablet l 14:00: should not [place] 00 be chewed or crushed. (Same as: Protonix) Mupirocin No 1 appl, Memor ia 0.02 MG/MG 06-25 Route: l Topical 14:00: NASAL, [place] Ointment 00 BID, Drug form: OINT, Start date: 06/25/16 9:00:00 CDT, Duration: 5 day, Stop date: 06/29/16 17:00:00 CDT clopidogrel No Notes: Danilo jerry 4-01 (Same As: l 14:00: Plavix) Ty Aspirin 325 No 325 mg, Mem oria MG Enteric 4- Route: PO, l Coated 14:00: Drug form: Soumya nn Tablet 00 ECTAB, Daily, Dosing Weight 102.926, kg, Start date: 06/25/16 9:00:00 CDT, Duration: 30 day, Stop date: 07/24/16 9:00:00 CDT pantoprazol 2017-0 No Notes: Danilo jerry e 4-01 Tablet l 14:00: should not [place] 00 be chewed or crushed. (Same as: Protonix) Mupirocin No 1 appl, Memor ia 0.02 MG/MG 4- Route: l Topical 14:00: NASAL, Ty Ointment 00 BID, Drug form: OINT, Start date: 06/25/16 9:00:00 CDT, Duration: 5 day, Stop date: 06/29/16 17:00:00 CDT clopidogrel 2017-0 No Notes: Danilo jerry 4-01 (Same As: l 14:00: Plavix) [place] Aspirin 325 No 325 mg, Mem oria MG Enteric 4- Route: PO, l Coated 14:00: Drug form: Soumya nn Tablet 00 ECTAB, Daily, Dosing Weight 102.926, kg, Start date: 06/25/16 9:00:00 CDT, Duration: 30 day, Stop date: 07/24/16 9:00:00 CDT pantoprazol 2017-0 No Notes: Danilo jerry e 4-01 Tablet l 14:00: should not [place] 00 be chewed or crushed. (Same as: Protonix) Mupirocin No 1 appl, Memor ia 0.02 MG/MG 4-01 Route: l Topical 14:00: NASAL, Ty Ointment 00 BID, Drug form: OINT, Start date: 06/25/16 9:00:00 CDT, Duration: 5 day, Stop date: 06/29/16 17:00:00 CDT clopidogrel 2017-0 No Notes: Danilo jerry 4-01 (Same As: l 14:00: Plavix) [place] 00 Aspirin 325 0 No 325 mg, Mem oria MG Enteric 4-01 Route: PO, l Coated 14:00: Drug form: Soumya nn Tablet 00 ECTAB, Daily, Dosing Weight 102.926, kg, Start date: 06/25/16 9:00:00 CDT, Duration: 30 day, Stop date: 07/24/16 9:00:00 CDT heparin No Notes: Memoria -01 porcine l 13:00: heparin [place] heparin No Notes: Memoria 4-01 porcine l 13:00: heparin Ty heparin No Notes: Memoria 4-01 porcine l 13:00: heparin [place] vancomycin No 2001 mg: Me moria 4-01 infuse l 06:30: over 2.5 [place] 00 hours vancomycin No 2001 mg: Me moria 4-01 infuse l 06:30: over 2.5 [place] 00 hours vancomycin No 2001 mg: Me moria 4-01 infuse l 06:30: over 2.5 [place] 00 hours cefuroxime No Notes: Memor ia [...] 1 mg Product Wasted: ___ mg EPINEPHrine 2017-0 No Notes: Danilo jerry 4 mg + [...] Do not shake vigorously . (Same as: [employer]) "single patient use only" WASTE: F/P - [...] e. Expires in days from ____Date insulin 2016-0 No Notes: Memoria aspart 3-31 Roll in l 23:36: palms of [place] 00 hands gently; Do not shake vigorously . (Same as: NovoLOG) "single patient use only" WASTE: F/P - Black; E - [employer] Trash Bin Stable for 28 days at room temperatur e. Expires in days from ____Date insulin 2017-0 No Notes: Memoria aspart 3-31 Roll in l 23:36: palms of [place] 00 hands gently; Do not shake vigorously . (Same as: NovoLOG) "single patient use only" WASTE: F/P - Black; E - [employer] Trash Bin Stable for 28 days at room temperatur e. Expires in days from ____Date insulin 2017- No Notes: Memoria aspart 3-31 Roll in l 23:36: palms of [place] 00 hands gently; Do not shake vigorously . (Same as: NovoLOG) "single patient use only" WASTE: F/P - Black; E - [employer] Trash Bin Stable for 28 days at room temperatur e. Expires in days from ____Date insulin reg 2016- No Notes: Danilo jerry 100 unit-NS - Final l 100mL 100 23:35: Concentrat He rmann unit 00 ion 1unit/1ml WASTE: F/P - Black; E - [employer] Trash Bin insulin reg No Notes: Danilo jerry 100 unit-NS - Final l 100mL 100 23:35: Concentrat He rmann unit 00 ion 1unit/1ml WASTE: F/P - Black; E - [employer] Trash Bin insulin reg No Notes: Danilo jerry 100 unit-NS - Final l 100mL 100 23:35: Concentrat He rmann unit 00 ion 1unit/1ml WASTE: F/P - Black; E - [facility] Trash Bin insulin reg 2016- No Notes: Danilo jerry 100 unit-NS - Final l 100mL 100 23:34: Concentrat He rmann unit 00 ion 1unit/1ml WASTE: F/P - Black; E - [employer] Trash Bin insulin reg No Notes: Danilo jerry 100 unit-NS - Final l 100mL 100 23:34: Concentrat He rmann unit 00 ion 1unit/1ml WASTE: F/P - Black; E - [employer] Trash Bin insulin reg No Notes: Danilo jerry 100 unit-NS 06-24 Final l 100mL 100 23:34: Concentrat He rmann unit 00 ion 1unit/1ml WASTE: F/P - Black; E - [facility] Trash Bin albuterol No Notes: SEE Me moria 3-31 RT l 23:16: DOCUMENTAT [place] 00 ION (Same as: Proventil) albuterol No Notes: SEE Me moria 3-31 RT l 23:16: DOCUMENTAT [place] 00 ION (Same as: Proventil) albuterol No Notes: SEE Me moria 3-31 RT l 23:16: DOCUMENTAT [place] 00 ION (Same as: Proventil) Fentanyl No Notes: Memoria 331 Concentrat l 23:00: ion is 20 [place] 00 micrograms /ml metoprolol No Notes: Memor ia tartrate 3- (Same as: l 23:00: Lopressor) [place] Cefuroxime No Notes: Memor ia 3-31 (Same As: l 23:00: Kefurox, Ty 00 Zinacef) MEDICATION WASTE Product Size: 1500 mg Product Wasted: ___ mg Fentanyl No Notes: Memoria 3-31 Concentrat l 23:00: ion is 20 [place] 00 micrograms /ml metoprolol No Notes: Memor ia tartrate 3-31 (Same as: l 23:00: Lopressor) Ty Cefuroxime No Notes: Memor ia 3-31 (Same As: l 23:00: Kefurox, [place] 00 Zinacef) MEDICATION WASTE Product Size: 1500 mg Product Wasted: ___ mg Fentanyl No Notes: Memoria 3-31 Concentrat l 23:00: ion is 20 [place] 00 micrograms /ml metoprolol No Notes: Memor ia tartrate 3-31 (Same as: l 23:00: Lopressor) [place] Cefuroxime No Notes: Memor ia 3-31 (Same As: l 23:00: Kefurox, Ty 00 Zinacef) MEDICATION WASTE Product Size: 1500 mg Product Wasted: ___ mg PHOS-NaK No Notes: Memoria 3-31 (Same as: l 22:44: Phos-NaK) [place] 00 Each 1.5 gm pkt has 250mg phosphorou s. Mix w/2.5oz water and stir. potassium No Notes: Memori a phosphate + 3-31 (Same as: l sodium 22:44: K [place] chloride 00 Phosphate. 0.9% INJ ) 1 mMol 250 mL phoshate has 1.47 mEq potassium Infuse over 4 hours Calcium No Notes: Memoria Gluconate 06-24 WASTE: F/P l 22:44: - Sink; E [place] 00 - [facility] Trash Bin Magnesium No Notes: Memori a Oxide 06-24 (Same as: l 22:44: Mag-Ox [place] 00 400) Magnesium oxide 910db=655y g elemental magnesium Dose=____m g magnesium oxide (___mg elemental magnesium) Magnesium No Notes: Memori a Sulfate 06-24 WASTE: F/P l 22:44: - Sink; E [place] 00 - [facility] Trash Bin potassium No Notes: Memori a chloride -31 (Same as: l 22:44: Potassium Ty 00 Chloride) Calcium No Notes: Memoria Carbonate 06-24 (Same As: l 500 MG 22:44: Tums) [place] Chewable 00 Calcium Tablet Carbonate 500 mg = 200 mg elemental calcium Dose = mg calcium carbonate ( mg elemental calcium) Insulin, No Notes: Memoria Aspart, 3-31 Roll in l Human 22:44: palms of [place] 00 hands gently; Do not shake vigorously [...] phosphate 3-31 (Same as: l 22:44: K [place] Phosphate) sodium No 15 mmol, Memoria phosphate 3-31 250 mL, l 22:44: Route: [place] IVPB, Drug form: INJ, PRN, Dosing Weight 103.653, kg, PRN Abnormal Lab Result, Start date: 06/24/16 17:44:00 CDT, Duration: 30 day, Stop date: 07/24/16 17:43:00 CDT, FOR ICU USE ONLY Naloxone No Notes: Memoria 3-31 Same as l 22:44: Narcan [place] 00 Saline No Notes: Memoria Flush 0.9% 3-31 (Same as: l 22:44: BD Ty 00 Posiflush) Dulcolax No Notes: Memoria Laxative 3-31 (Same As: l 22:44: Dulcolax, [place] Bisco-Lax) Lactulose No Notes: Memori a 667 [...] Memoria 3-31 (Same as: l 22:44: Zofran) [place] 00 MEDICATION WASTE Product Size: 4 mg Product Wasted: ___ mg Xopenex No 1.25 mg, Memori a 06-24 Route: l 22:44: NEB, PRN, [place] 00 Dosing Weight 102.926, kg, PRN Respirator y Protocol, Start date: 06/24/16 17:44:00 CDT, Duration: 30 day, Stop date: 07/24/16 17:43:00 CDT Morphine No Notes: Memoria 06-24 (Same l 22:44: as:MORPhin e Sulfate) Albuterol No Notes: Memori a 0.833 MG/ML 06-24 (Same as: l / 22:44: Duoneb) Ty Ipratropium 00 [place] 0.167 MG/ML Inhalant Solution Glucagon No 1 [...] jerry 06-24 (Same as: l 22:44: Zofran) [place] 00 MEDICATION WASTE Product Size: 4 mg [...] 4 gm/day. Ty 00 (Same as: Tylenol) PHOS-NaK No Notes: Memoria 06-24 (Same as: l 22:44: Phos-NaK) [place] 00 Each 1.5 gm pkt has 250mg phosphorou s. Mix w/2.5oz water and stir. potassium No Notes: Memori a phosphate + 06-24 (Same as: l sodium 22:44: K [place] chloride 00 Phosphate. 0.9% INJ ) 1 mMol 250 mL phoshate has 1.47 mEq potassium Infuse over 4 hours Calcium No Notes: Memoria Gluconate 06-24 WASTE: F/P l 22:44: - Sink; E [place] - [facility] Trash Bin Magnesium No Notes: Memori a Oxide 06-24 (Same as: l 22:44: Mag-Ox [place] 00 400) Magnesium oxide 692cv=979c g elemental magnesium Dose=____m g magnesium oxide (___mg elemental magnesium) Magnesium No Notes: Memori a Sulfate 06-24 WASTE: F/P l 22:44: - Sink; E [place] - [facility] Trash Bin potassium No Notes: Memori a chloride 06-24 (Same as: l 22:44: Potassium [place] 00 Chloride) Calcium No Notes: Memoria Carbonate 06-24 (Same As: l 500 MG 22:44: Tums) [place] Chewable 00 Calcium Tablet Carbonate 500 mg = 200 mg elemental calcium Dose = mg calcium carbonate ( mg elemental calcium) Insulin, No Notes: Memoria Aspart, 06-24 Roll in l Human 22:44: palms of [place] 00 hands gently; Do not shake vigorously . (Same as: NovoLOG) "single patient use only" WASTE: F/P - Black; E - [employer] Trash Bin Stable for 28 days at room temperatur e. Expires in days from ____Date sodium No 45 mmol, Memoria phosphate + 06-24 15 mL, l sodium 22:44: Route: [place] chloride 00 IVPB, PRN, 0.9% INJ Dosing 250 mL Weight 103.653, kg, PRN Abnormal Lab Result, Start date: 06/24/16 17:44:00 CDT, Duration: 30 day, Stop date: 07/24/16 17:43:00 CDT, FOR ICU USE ONLY potassium No Notes: Memori a phosphate 3-31 (Same as: l 22:44: K [place] Phosphate) sodium No 15 mmol, Memoria phosphate 3-31 250 mL, l 22:44: Route: [place] 00 IVPB, Drug form: INJ, PRN, Dosing Weight 103.653, kg, PRN Abnormal Lab Result, Start date: 06/24/16 17:44:00 CDT, Duration: 30 day, Stop date: 07/24/16 17:43:00 CDT, FOR ICU USE ONLY Naloxone No Notes: Memoria 3-31 Same as l 22:44: Narcan [place] 00 Saline No Notes: Memoria Flush 0.9% 3-31 (Same as: l 22:44: BD [place] Posiflush) Dulcolax No Notes: Memoria Laxative 3-31 (Same As: l 22:44: Dulcolax, [place] Bisco-Lax) Lactulose No Notes: Memori a 667 MG/ML 3-31 (Same l Oral 22:44: as:Chronul [place] Solution 00 ac) albumin No Notes: Memoria [...] a 06-24 Route: l 22:44: NEB, PRN, [place] Dosing Weight 102.926, kg, PRN Respirator y Protocol, Start date: 06/24/16 17:44:00 CDT, Duration: 30 day, Stop date: 07/24/16 17:43:00 CDT Morphine No Notes: Memoria 06-24 (Same l 22:44: as:MORPhin e Sulfate) Albuterol No Notes: Memori a 0.833 MG/ML 06-24 (Same as: l / 22:44: Duoneb) Ty Ipratropium 00 [place] 0.167 MG/ML Inhalant Solution Glucagon No 1 [...] 25 gm, 50 Danilo jerry 50% Syringe 3- mL, Route: l 22:44: IVP, Drug Ty 00 Form: INJ, Dosing Weight 103.653, kg, PRN, PRN Blood Glucose Results, Start date: 06/24/16 17:44:00 CDT, Duration: 30 day, Stop date: 07/24/16 17:43:00 CDT Acetaminoph No Notes: Do M emoria en 3- not exceed l 22:44: 4 gm/day. Ty 00 (Same as: Tylenol) PHOS-NaK No Notes: Memoria 3-31 (Same as: l 22:44: Phos-NaK) Ty 00 Each 1.5 gm pkt has 250mg phosphorou s. Mix w/2.5oz water and stir. potassium No Notes: Memori a phosphate + 3-31 (Same as: l sodium 22:44: K [place] chloride 00 Phosphate. 0.9% INJ ) 1 mMol 250 mL phoshate has 1.47 mEq potassium Infuse over 4 hours Calcium No Notes: Memoria Gluconate 06-24 WASTE: F/P l 22:44: - Sink; E [place] 00 - [facility] Trash Bin Magnesium No Notes: Memori a Oxide 06-24 (Same as: l 22:44: Mag-Ox [place] 00 400) Magnesium oxide 606lc=653o g elemental magnesium Dose=____m g magnesium oxide (___mg elemental magnesium) Magnesium No Notes: Memori a Sulfate 06-24 WASTE: F/P l 22:44: - Sink; E [place] - [facility] Trash Bin potassium No Notes: Memori a chloride 06-24 (Same as: l 22:44: Potassium [place] 00 Chloride) Calcium No Notes: Memoria Carbonate 06-24 (Same As: l 500 MG 22:44: Tums) Ty Chewable 00 Calcium Tablet Carbonate 500 mg = 200 mg elemental calcium Dose = mg calcium carbonate ( mg elemental calcium) Insulin, No Notes: Memoria Aspart, 3- Roll in l Human 22:44: palms of [place] 00 hands gently; Do [...] Memoria 3-31 Same as l 22:44: Narcan [place] 00 Saline No Notes: Memoria Flush 0.9% 3-31 (Same as: l 22:44: BD Ty 00 Posiflush) Dulcolax No Notes: Memoria Laxative 3-31 (Same As: l 22:44: Dulcolax, Ty Bisco-Lax) Lactulose No Notes: Memori a 667 MG/ML 3-31 (Same l Oral 22:44: as:Chronul [place] Solution 00 ac) albumin No Notes: Memoria human 5% 3-31 LOT#: l intravenous 22:44: [place] solution 00 ___ Mfg: WASTE: F/P - [...] Memoria 06-24 (Same as: l 22:44: Zofran) [place] 00 MEDICATION WASTE Product Size: 4 mg [...] 06-24 (Same as: l / 22:44: Duoneb) [place] Ipratropium 00 [place] 0.167 MG/ML Inhalant Solution Glucagon No 1 mg, Memoria 06-24 Route: IM, l 22:44: Drug form: [place] 00 PDR/INJ, PRN, Dosing Weight 103.653, kg, PRN Blood Glucose Results, Start date: 06/24/16 17:44:00 CDT, Duration: 30 day, Stop date: 07/24/16 17:43:00 CDT Nitroglycer No Notes: Danilo jerry in 06-24 (Same l 22:44: as:Nitroqu ick, Nitrostat) "Do Not Crush" Sublingual tablet Docusate No Notes: Memoria 06-24 (Same as: l 22:44: Colace) Ty 00 (Do Not Crush) Ondansetron No Notes: Danilo jerry 06-24 (Same as: l 22:44: Zofran) Ty 00 MEDICATION WASTE Product Size: 4 mg Product Wasted: ___ mg Dextrose No 25 gm, 50 Danilo jerry 50% Syringe 3-31 mL, Route: l 22:44: IVP, Drug [place] 00 Form: INJ, Dosing Weight 103.653, kg, PRN, PRN Blood Glucose Results, Start date: 06/24/16 17:44:00 CDT, Duration: 30 day, Stop date: 07/24/16 17:43:00 CDT Acetaminoph No Notes: Do Aimee dsouza en 06-24 not exceed l 22:44: 4 [...] INJ, ONCE, Stop date: 06/24/16 17:03:00 CDT protamine No Route: IV, Me moria (ANES) 06-24 Drug form: l 22:03: INJ, ONCE, Stop date: 06/24/16 17:03:00 CDT protamine No Route: IV, Me moria (ANES) 06-24 Drug form: l 22:03: INJ, ONCE, Stop date: 06/24/16 17:03:00 CDT calcium 2017-0 No Route: IV, Danilo jerry chloride 06-24 Drug form: l (ANES) 21:48: INJ, ONCE, Soumya Stop date: 06/24/16 16:48:00 CDT calcium 2017-0 No Route: IV, Danilo jerry chloride 06-24 Drug form: l (ANES) 21:48: INJ, ONCE, Soumya Stop date: 06/24/16 16:48:00 CDT calcium 2017-0 No Route: IV, Danilo jerry chloride 06-24 Drug form: l (ANES) 21:48: INJ, ONCE, Soumya Stop date: 06/24/16 16:48:00 CDT nitroglycer 2016-0 No Route: IV, Memoria in (ANES) 06-24 Drug form: l 20:17: INJ, ONCE, Stop date: 06/24/16 15:17:00 CDT nitroglycer 2016-0 No Route: IV, Memoria in (ANES) 06-24 Drug form: l 20:17: INJ, ONCE, [place] 00 Stop date: 06/24/16 15:17:00 CDT nitroglycer 2017-0 No Route: IV, Memoria in (ANES) 06-24 Drug form: l 20:17: INJ, ONCE, Stop date: 06/24/16 15:17:00 CDT heparin 2017-0 No Route: IV, Danilo jerry (ANES) 06-24 Drug form: l 20:07: INJ, ONCE, [place] 00 Stop date: 06/24/16 15:07:00 CDT heparin 2017-0 No Route: IV, Danilo jerry (ANES) 06-24 Drug form: l 20:07: INJ, ONCE, [place] 00 Stop date: 06/24/16 15:07:00 CDT heparin 2017-0 No Route: IV, Danilo jerry (ANES) 06-24 Drug form: l 20:07: INJ, ONCE, [place] 00 Stop date: 06/24/16 15:07:00 CDT fentaNYL 2017-0 No Route: IV, Mem oria (ANES) 06-24 Drug form: l 19:31: INJ, ONCE, [place] 00 Stop date: 06/24/16 14:31:00 CDT fentaNYL 2017-0 No Route: IV, Mem oria (ANES) 06-24 Drug form: l 19:31: INJ, ONCE, Stop date: 06/24/16 14:31:00 CDT fentaNYL 2017-0 No Route: IV, Mem oria (ANES) 06-24 Drug form: l 19:31: INJ, ONCE, Stop date: 06/24/16 14:31:00 CDT ePHEDrine 2017-0 No Route: IV, Me [...] ONCE, Stop date: 06/24/16 14:11:00 CDT rocuronium 2017-0 No Route: IV, M emoria (ANES) 06-24 Drug form: l 19:06: INJ, ONCE, Stop date: 06/24/16 14:06:00 CDT propofol 2017-0 No Route: IV, Mem oria (ANES) 06-24 Drug form: l 19:06: INJ, ONCE, Stop date: 06/24/16 14:06:00 CDT rocuronium 2016-0 No Route: IV, M emoria (ANES) 06-24 Drug form: l 19:06: INJ, ONCE, Stop date: 06/24/16 14:06:00 CDT propofol 2016-0 No Route: IV, Mem oria (ANES) 3 Drug form: l 19:06: INJ, ONCE, Stop date: 06/24/16 14:06:00 CDT rocuronium 2016-0 No Route: IV, M emoria (ANES) 3 Drug form: l 19:06: INJ, ONCE, Stop date: 06/24/16 14:06:00 CDT propofol 2016-0 No Route: IV, Mem oria (ANES) 06-24 Drug form: l 19:06: INJ, ONCE, Stop date: 06/24/16 14:06:00 CDT Amicar 2016-0 No Route: IV, Memor ia (ANES) 06-24 Drug form: l (ANES) + 18:35: INJ, Dosing Weight 103.7, kg, Start date: 06/24/16 13:35:00 CDT, Stop date: 06/24/16 14:35:00 CDT Amicar 2016-0 No Route: IV, Memor ia (ANES) 06-24 Drug form: l (ANES) + 18:35: INJ, Dosing Weight 103.7, kg, Start date: 06/24/16 13:35:00 CDT, Stop date: 06/24/16 14:35:00 CDT Amicar 2016-0 No Route: IV, Memor ia (ANES) 06-24 Drug form: l (ANES) + 18:35: INJ, Dosing Weight 103.7, kg, Start date: 06/24/16 13:35:00 CDT, Stop date: 06/24/16 14:35:00 CDT vancomycin 2016-0 No Route: IV, M emoria (ANES) 3- Drug form: l (ANES) 18:29: INJ, Start [...] (ANES) 3-31 Drug form: l 18:11: SOLN, Ty 00 ONCE, Stop date: 06/24/16 13:11:00 CDT morphine No Route: IV, Mem oria Sulfate 3-31 Drug form: l (ANES) 18:11: INJ, ONCE, Soumya nn Stop date: 06/24/16 13:11:00 CDT midazolam 0 No Route: IV, Me moria (ANES) 3-31 Drug form: l 18:11: SOLN, Ty 00 ONCE, Stop date: 06/24/16 13:11:00 CDT morphine 0 No Route: IV, Mem oria Sulfate 3-31 Drug form: l (ANES) 18:11: INJ, ONCE, Soumya nn Stop date: 06/24/16 13:11:00 CDT midazolam 0 No Route: IV, Me moria (ANES) 3-31 Drug form: l 18:11: SOLN, [place] 00 ONCE, Stop date: 06/24/16 13:11:00 CDT morphine 0 No Route: IV, Mem oria Sulfate 3-31 Drug form: l (ANES) 18:11: INJ, ONCE, Soumya nn Stop date: 06/24/16 13:11:00 CDT Isolyte S No Route: IV, Me moria (PH 7.4) 3-31 Total l 1000 mL 17:39: Volume: [place] (ANES) 00 1,000, Start date: 06/24/16 12:39:00 CDT, Stop date: 06/24/16 13:39:00 CDT Isolyte S 2017-0 No Route: IV, Me moria (PH 7.4) 3-31 Total l 1000 mL 17:39: Volume: [place] (ANES) 00 1,000, Start date: 06/24/16 12:39:00 [...] 3-29 250 ml/hr, l 0.154 12:34: Infuse [place] MEQ/ML 00 Over: 1 Injectable hr, Route: Solution IV, 250, Drug form: INJ, ONCE, Priority: STAT, Dosing Weight 99.563 kg, Start date: 06/22/16 7:34:00 CDT, Duration: 1 doses or times, Stop date: 06/22/16 7:34:00 CDT Sodium 2017-0 No 250 mL, Memoria Chloride 3-29 250 ml/hr, l 0.154 12:34: Infuse [place] MEQ/ML 00 Over: 1 Injectable hr, Route: [...] day, Stop date: 07/22/16 7:18:00 CDT sodium 2017-0 No 1,000 mL, Memori a chloride 3-29 Rate: 125 l 0.9% 1000 12:19: ml/hr, Rafat n ml INJ 00 Infuse 1,000 mL over: 8 hr, Route: IV, Dosing Weight 99.563 kg, Total Volume: 1,000, Start date: 06/22/16 7:19:00 CDT, Duration: 30 day, Stop date: 07/22/16 7:18:00 CDT sodium 2017- No 1,000 mL, Memori a chloride 06-22 Rate: 125 l 0.9% 1000 12:19: ml/hr, Rafat n ml INJ 00 Infuse 1,000 mL over: 8 hr, Route: IV, Dosing Weight 99.563 kg, Total Volume: 1,000, Start date: 06/22/16 7:19:00 CDT, Duration: 30 day, Stop date: 07/22/16 7:18:00 CDT Lopressor No Notes: Memori a 3-26 (Same as: l 23:00: Lopressor) Ty Lopressor No Notes: Memori a 3-26 (Same as: l 23:00: Lopressor) [place] Lopressor No Notes: Memori a 3-26 (Same as: l 23:00: Lopressor) Ty Lopressor No Notes: Memori a 3-26 (Same as: l 22:00: Lopressor) [place] Lopressor No Notes: Memori a 3-26 (Same as: l 22:00: Lopressor) Ty Lopressor No Notes: Memori a 3-26 (Same as: l 22:00: Lopressor) [place] Levemir No Notes: Memoria 3-25 Same as l 02:00: Levemir Do [place] 00 not hold insulin without contacting prescriber WASTE: F/P - Black; E - Municipal Trash Bin "single patient use only" Saline No Notes: Memoria Flush 0.9% 3-25 (Same as: l 02:00: BD [place] 00 Posiflush) Levemir No Notes: Memoria 3-25 Same as l 02:00: Levemir Do [place] 00 not hold insulin without contacting prescriber WASTE: F/P - Black; E - Municipal Trash Bin "single patient use only" Saline No Notes: Memoria Flush 0.9% 3-25 (Same as: l 02:00: BD [place] 00 Posiflush) Levemir No Notes: Memoria 3-25 Same as l 02:00: Levemir Do Ty 00 not hold insulin without contacting prescriber WASTE: F/P - Black; E - Municipal Trash Bin "single patient use only" Saline No Notes: Memoria Flush 0.9% 3-25 (Same as: l 02:00: BD [place] 00 Posiflush) chlorhexidi No Notes: Danilo jerry [...] MG/MG 3-25 Route: l Topical 00:00: NASAL, [place] Ointment 00 ONCALL, Drug form: OINT, Start date: 06/17/16 19:00:00 CDT, Duration: 30 day, Stop date: 07/17/16 18:59:00 CDT Cefazolin No Notes: Memori a 3-25 Same as: l 00:00: Ancef [place] Mupirocin No 1 appl, Memor ia 0.02 MG/MG 3-25 Route: l Topical 00:00: NASAL, Ty Ointment 00 ONCALL, Drug form: OINT, Start date: 06/17/16 19:00:00 CDT, Duration: 30 day, Stop date: 07/17/16 18:59:00 CDT Cefazolin No Notes: Memori a 3-25 Same as: l 00:00: Ancef Ty Mupirocin No 1 appl, Memor ia 0.02 MG/MG 3-25 Route: l Topical 00:00: NASAL, [place] Ointment 00 ONCALL, Drug form: OINT, Start date: 06/17/16 19:00:00 CDT, Duration: 30 day, Stop date: 07/17/16 18:59:00 CDT sodium 2017-0 No 250 mL, Memoria chloride 3-24 Rate: On l 0.9% INJ 23:54: call for Soumya nn 250 mL 00 use with blood product administra tion, Dosing Weight 102.926, kg, Route: IV, Total Volume: 250, Start Date: 06/17/16 18:54:00 CDT, Duration: 30 day, Stop date: 07/17/16 18:53:00 CDT, Replace Every: 24 hr Saline 2017-0 No Notes: Memoria Flush 0.9% 3-24 (Same as: l 23:54: BD Ty Posiflush) metoprolol 2017-0 No 12.5 mg, Mem oria tartrate 3-24 Route: PO, l 23:54: Drug form: Ty 00 TAB, Q12H, Dosing Weight 102.926, kg, Priority: NOW, Start date: 06/17/16 18:54:00 CDT, Duration: 30 day, Stop date: 07/17/16 9:00:00 CDT sodium 2017-0 No 250 mL, Memoria chloride 3-24 Rate: On l 0.9% INJ 23:54: call for Soumya nn 250 mL 00 use with blood product administra tion, Dosing Weight 102.926, kg, Route: IV, Total Volume: 250, Start Date: 06/17/16 18:54:00 CDT, Duration: 30 day, Stop date: 07/17/16 18:53:00 CDT, Replace Every: 24 hr Saline 2017-0 No Notes: Memoria Flush 0.9% 3-24 (Same as: l 23:54: BD Ty Posiflush) metoprolol 2017-0 No 12.5 mg, Mem oria tartrate 3-24 Route: PO, l 23:54: Drug form: [place] 00 TAB, Q12H, Dosing Weight 102.926, kg, Priority: NOW, Start date: 06/17/16 18:54:00 CDT, Duration: 30 day, Stop date: 07/17/16 9:00:00 CDT sodium 2017-0 No 250 mL, Memoria chloride -24 Rate: On l 0.9% INJ 23:54: call for Soumya nn 250 mL 00 use with blood product administra tion, Dosing Weight 102.926, kg, Route: IV, Total Volume: 250, Start Date: 06/17/16 18:54:00 CDT, Duration: 30 day, Stop date: 07/17/16 18:53:00 CDT, Replace Every: 24 hr Saline No Notes: Memoria Flush 0.9% 24 (Same as: l 23:54: BD Ty Posiflush) metoprolol No 12.5 mg, Mem oria tartrate 24 Route: PO, l 23:54: Drug form: [place] 00 TAB, Q12H, Dosing Weight 102.926, kg, [...] ia 3-24 Nurse to l 14:00: ensure [place] 00 documentat ion of patient education per anticoagul ation policy. (Same as: Lovenox) Albuterol No Notes: Memori a 0.833 MG/ML 3-24 (Same as: :: Duoneb) Ty Ipratropium 00 [place] 0.167 MG/ML Inhalant Solution [DuoNeb] Albuterol No Notes: Memori a 0.833 MG/ML 3-24 (Same as: :: Duoneb) [place] Ipratropium 00 [place] 0.167 MG/ML Inhalant Solution [DuoNeb] Albuterol No Notes: Memori a 0.833 MG/ML 3-24 (Same as: :: Duoneb) [place] Ipratropium 00 [place] 0.167 MG/ML Inhalant Solution [DuoNeb] Budesonide No [...] Danilo jerry 3-23 (Same l 23:12: as:Solu-ME [place] 00 DROL, A-Methapre d) Solu-Medrol No Notes: Danilo jerry 3-23 (Same l 23:12: as:Solu-ME [place] 00 DROL, A-Methapre d) Solu-Medrol No Notes: Danilo jerry 3-23 (Same l 23:12: as:Solu-ME [place] 00 DROL, A-Methapre d) Lovenox 2016-0 No Notes: Memoria 3-23 Nurse to l 23:00: ensure [place] 00 documentat ion of patient education per anticoagul ation policy. (Same as: Lovenox) Lovenox 2016-0 No Notes: Memoria 3-23 Nurse to l 23:00: ensure Ty 00 documentat ion of patient education per anticoagul ation policy. (Same as: Lovenox) Lovenox 2016-0 No Notes: Memoria 3-23 Nurse to l 23:00: ensure Ty 00 documentat ion of patient education per anticoagul ation policy. (Same as: Lovenox) Sodium 2017-0 No 250 mL, Memoria Chloride 3-23 250 ml/hr, l 0.154 22:00: Infuse Ty MEQ/ML 00 Over: 1 Injectable hr, Route: Solution IV, 250, Drug form: INJ, ONCALL, Priority: Routine, Dosing Weight 102.926 kg, Start date: 06/16/16 17:00:00 CDT, Duration: 1 doses or times Sodium 2017-0 No 250 mL, Memoria Chloride 3-23 250 ml/hr, l 0.154 22:00: Infuse [place] MEQ/ML 00 Over: 1 Injectable hr, Route: Solution IV, 250, Drug form: INJ, ONCALL, Priority: Routine, Dosing Weight 102.926 kg, Start date: 06/16/16 17:00:00 CDT, Duration: 1 doses or times Sodium 2017-0 No 250 mL, Memoria Chloride 3-23 250 [...] CDT, Stop date: 06/17/16 16:14:00 CDT Sodium No 750 mL, Memoria Chloride 3-23 Rate: 75 l 0.154 21:15: ml/hr, [place] MEQ/ML 00 Infuse Injectable over: 10 Solution [...] not exceed l #3 21:11: 4gm/day of [place] acetaminop hen. (Same as: Tylenol with Codeine # 3) Acetaminoph No Notes: Do M emoria en 3-23 not exceed l 21:11: 4 gm/day. [place] (Same as: Tylenol) Sodium No 500 mL, Memoria Chloride 3-23 Rate: 150 l 0.154 21:11: ml/hr, Ty MEQ/ML 00 Infuse Injectable over: 3.3 Solution hr, Route: IV, Dosing Weight 102.926 kg, Total Volume: 500, Start date: 06/16/16 16:11:00 CDT, Stop date: 06/16/16 20:10:00 CDT acetaminoph No Notes: Do M emoria en-codeine 3-23 not exceed l #3 21:11: 4gm/day of [place] 00 acetaminop hen. (Same as: Tylenol with Codeine # 3) Acetaminoph No Notes: Do M emoria en 3-23 not exceed l 21:11: 4 gm/day. Ty (Same as: Tylenol) Sodium No 500 mL, Memoria Chloride 3-23 Rate: 150 l 0.154 21:11: ml/hr, [place] MEQ/ML 00 Infuse Injectable over: 3.3 Solution hr, Route: IV, Dosing Weight 102.926 kg, Total Volume: 500, Start date: 06/16/16 16:11:00 CDT, Stop date: 06/16/16 20:10:00 CDT acetaminoph 0 No Notes: Do M emoria en-codeine 3-23 not exceed l #3 21:11: 4gm/day of acetaminop hen. (Same as: Tylenol with Codeine # 3) Acetaminoph 0 No Notes: Do M emoria en 3-23 not exceed l 21:11: 4 gm/day. (Same as: Tylenol) Sodium 0 No 500 mL, Memoria Chloride 3-23 Rate: 150 l 0.154 21:11: ml/hr, [place] MEQ/ML 00 Infuse Injectable over: 3.3 Solution hr, Route: IV, Dosing Weight 102.926 kg, Total Volume: 500, Start date: 06/16/16 16:11:00 CDT, Stop date: 06/16/16 20:10:00 CDT Sodium No 250 mL, Memoria Chloride 3-23 Route: l 0.9% IV 20:49: IVPB, Start date: 06/16/16 15:49:00 CDT, Duration: 30 day, Stop date: 07/16/16 15:48:00 CDT, PRN Line Flush Sodium 0 No 250 mL, Memoria Chloride 3-23 Route: l 0.9% IV 20:49: IVPB, Start date: 06/16/16 15:49:00 CDT, Duration: 30 day, Stop date: 07/16/16 15:48:00 CDT, PRN Line Flush Sodium 0 No 250 mL, Memoria Chloride 3-23 Route: l 0.9% IV 20:49: IVPB, Start date: 06/16/16 15:49:00 CDT, Duration: 30 day, Stop date: 07/16/16 15:48:00 CDT, PRN Line Flush Dextrose No 25 gm, 50 Danilo jerry 50% Syringe 3-23 mL, Route: l 20:45: IVP, Drug [place] 00 Form: INJ, Dosing Weight 102.926, kg, PRN, PRN Blood Glucose Results, Start date: 06/16/16 15:45:00 CDT, Duration: 30 day, Stop date: 07/16/16 15:44:00 CDT Insulin, 2016-0 No Notes: Memoria Aspart, 3-23 Roll in l Human 20:45: palms of Ty 00 hands gently; Do not shake vigorously . (Same as: NovoLOG) "single patient use only" WASTE: F/P - Black; E - Municipal Trash Bin Stable for 28 days at room temperatur e. Expires in days from ____Date Glucagon 2016-0 No 1 mg, Memoria 3- Route: IM, l 20:45: Drug form: [place] 00 PDR/INJ, PRN, Dosing Weight 102.926, kg, PRN Blood Glucose Results, Start date: 06/16/16 15:45:00 CDT, Duration: 30 day, Stop date: 07/16/16 15:44:00 CDT Dextrose 2016-0 No 25 gm, 50 Danilo jerry 50% Syringe 3-23 mL, Route: l 20:45: IVP, Drug Ty 00 Form: INJ, Dosing Weight 102.926, kg, PRN, PRN Blood Glucose Results, Start date: 06/16/16 15:45:00 CDT, Duration: 30 day, Stop date: 07/16/16 15:44:00 CDT Insulin, 2016-0 No Notes: Memoria Aspart, 3-23 Roll in l Human 20:45: palms of Ty 00 hands gently; Do not shake vigorously . (Same as: NovoLOG) "single patient use only" WASTE: F/P - Black; E - Municipal Trash Bin Stable for 28 days at room temperatur e. Expires in days from ____Date Glucagon 2016-0 No 1 mg, Memoria 3-23 Route: IM, l 20:45: Drug form: [place] 00 PDR/INJ, PRN, Dosing Weight 102.926, kg, PRN Blood Glucose Results, Start date: 06/16/16 15:45:00 CDT, Duration: 30 day, Stop date: 07/16/16 15:44:00 CDT Dextrose 2017-0 No 25 gm, 50 Danilo jerry 50% Syringe 3-23 mL, Route: l 20:45: IVP, Drug [place] 00 Form: INJ, Dosing Weight 102.926, kg, [...] 3-23 Route: IM, l 20:45: Drug form: [place] 00 PDR/INJ, PRN, Dosing Weight 102.926, kg, PRN Blood Glucose Results, Start date: 06/16/16 15:45:00 CDT, Duration: 30 day, Stop date: 07/16/16 15:44:00 CDT Sodium 2017-0 No 1,000 mL, Memori a Chloride 3-23 Rate: 100 l 0.154 14:19: ml/hr, [place] MEQ/ML 00 Infuse Injectable over: 10 Solution [...] day, Stop date: 07/16/16 9:18:00 CDT Sodium No 1,000 mL, Memori a Chloride 06-16 Rate: 100 l 0.154 14:19: ml/hr, Ty MEQ/ML 00 Infuse Injectable over: 10 Solution hr, Route: IV, Dosing Weight 102.926 kg, Total Volume: 1,000, Start date: 06/16/16 9:19:00 CDT, Duration: 30 day, Stop date: 07/16/16 9:18:00 CDT aspirin 81 No Notes: Do Me moria mg tablet, - not crush l enteric 14:00: or chew. Rafat n coated 00 (Same As: Ecotrin) aspirin 81 No Notes: Do Me moria mg tablet, 3-23 not crush l enteric 14:00: or chew. Rafat n coated 00 (Same As: Ecotrin) aspirin 81 No Notes: Do Me moria mg tablet, - not crush l enteric 14:00: or chew. [...] id) metoprolol No Notes: Memor ia tartrate - (Same as: l 05:00: Lopressor) [place] metoprolol No Notes: Memor ia tartrate 3-23 (Same as: l 05:00: Lopressor) metoprolol 2017-0 No Notes: Memor ia tartrate 3-23 (Same as: l 05:00: Lopressor) Sodium 2017-0 No 250 mL, Memoria Chloride 3-23 250 ml/hr, l 0.154 03:00: Infuse Ty MEQ/ML 00 Over: 1 Injectable hr, Route: Solution IV, 250, Drug form: INJ, ONCALL, Priority: Routine, Dosing Weight 102.926 kg, Start date: 06/15/16 22:00:00 CDT, Duration: 1 doses or times Sodium 2017-0 No 250 mL, Memoria Chloride 3-23 250 ml/hr, l 0.154 03:00: Infuse [place] MEQ/ML 00 Over: 1 Injectable hr, Route: Solution IV, 250, Drug form: INJ, ONCALL, Priority: Routine, Dosing Weight 102.926 kg, Start date: 06/15/16 22:00:00 CDT, Duration: 1 doses or times Sodium 2017-0 No 250 mL, Memoria Chloride 3-23 250 ml/hr, l 0.154 03:00: Infuse [place] MEQ/ML 00 Over: 1 Injectable hr, Route: Solution IV, 250, Drug form: INJ, ONCALL, Priority: Routine, Dosing Weight 102.926 kg, Start date: 06/15/16 22:00:00 CDT, Duration: 1 doses or times Sodium 2017-0 No 750 mL, Memoria Chloride 3-23 Rate: 75 l 0.154 02:02: ml/hr, [place] MEQ/ML 00 Infuse Injectable over: 10 Solution hr, Route: IV, Dosing Weight 102.926 kg, Total Volume: 750, Start date: 06/15/16 21:02:00 CDT, Duration: 24 hr, Stop date: 06/16/16 21:01:00 CDT Sodium 2017-0 No 750 mL, Memoria Chloride 3-23 Rate: 75 l 0.154 02:02: ml/hr, [place] MEQ/ML 00 Infuse Injectable over: 10 Solution hr, Route: IV, Dosing Weight 102.926 kg, Total Volume: 750, Start date: 06/15/16 21:02:00 CDT, Duration: 24 hr, Stop date: 06/16/16 21:01:00 CDT Sodium 2017-0 No 750 mL, Memoria Chloride 3-23 Rate: 75 l 0.154 02:02: ml/hr, [place] MEQ/ML 00 Infuse Injectable over: 10 Solution hr, Route: IV, Dosing Weight 102.926 kg, Total Volume: 750, Start date: 06/15/16 21:02:00 CDT, Duration: 24 hr, Stop date: 06/16/16 21:01:00 CDT Saline No Notes: Memoria Flush 0.9% 3-23 (Same as: l 02:00: BD [place] 00 Posiflush) atorvastati No Notes: Danilo jerry n 3-23 (Same as: l 02:00: Lipitor) metoprolol 2016-0 No 25 mg, Memor ia tartrate 3-23 Route: PO, l 02:00: Drug form: [place] 00 TAB, Q12H, Dosing Weight 102.926, kg, Start date: 06/15/16 21:00:00 CDT, Duration: 30 day, Stop date: 07/15/16 9:00:00 CDT Saline No Notes: Memoria Flush 0.9% 3-23 (Same as: l 02:00: BD [place] 00 Posiflush) atorvastati No Notes: Danilo jerry n 3-23 (Same as: l 02:00: Lipitor) metoprolol 0 No 25 mg, Memor ia tartrate 3-23 Route: PO, l 02:00: Drug form: [place] 00 TAB, Q12H, Dosing Weight 102.926, kg, Start date: 06/15/16 21:00:00 CDT, Duration: 30 day, Stop date: 07/15/16 9:00:00 CDT Saline No Notes: Memoria Flush 0.9% 3-23 (Same as: l 02:00: BD Ty 00 Posiflush) atorvastati No Notes: Danilo jerry n 3-23 (Same as: l 02:00: Lipitor) metoprolol 2016-0 No 25 mg, Memor ia tartrate 3-23 Route: PO, l 02:00: Drug form: [place] 00 TAB, Q12H, Dosing Weight 102.926, kg, Start date: 06/15/16 21:00:00 CDT, Duration: 30 day, Stop date: 07/15/16 9:00:00 CDT Enoxaparin No Notes: Memor ia 3 Nurse to l 00:00: ensure [place] 00 documentat ion of patient education per anticoagul ation policy. (Same as: Lovenox) Enoxaparin No Notes: Memor ia 3-23 Nurse to l 00:00: ensure Ty 00 documentat ion of patient education per anticoagul ation policy. (Same as: Lovenox) Enoxaparin No Notes: Memor ia 3- Nurse to l 00:00: ensure [place] 00 documentat ion of patient education per anticoagul ation policy. (Same as: Lovenox) Albuterol No Notes: Memori a 0.833 MG/ML -22 (Same as: 18:56: Duoneb) Ty Ipratropium 00 [place] 0.167 MG/ML Inhalant Solution [DuoNeb] Albuterol No Notes: Memori a 0.833 MG/ML - (Same as: 18:56: Duoneb) [place] Ipratropium 00 [place] 0.167 MG/ML Inhalant Solution [DuoNeb] Albuterol No Notes: Memori a 0.833 MG/ML 3-22 (Same as: 18:56: Duoneb) Ty Ipratropium 00 [place] 0.167 MG/ML Inhalant Solution [DuoNeb] Saline No Notes: Memoria Flush 0.9% - (Same as: l 18:52: BD Ty Posiflush) Labetalol No Notes: Memori a 3-22 (Same as: l 18:52: Normodyne, [place] Trandate) Push over 2 minutes Give bolus over 2-3 minutes. Trazodone No Notes: Memori a Hydrochlori -22 (Same As: l de 50 MG 18:52: Desyrel) Soumya nn Oral Tablet 00 Miralax No Notes: Memoria 3-22 Dissolve l 18:52: in 8 oz of Ty 00 water or juice. (Same as: Miralax) Nitroglycer No Notes: Danilo jerry in 3-22 (Same l 18:52: as:Nitroqu [place] 00 ick, Nitrostat) "Do Not Crush" Sublingual tablet Morphine No Notes: Memoria 3-22 (Same l 18:52: as:MORPhin [place] 00 e Sulfate) Ondansetron No Notes: Danilo jerry 3-22 (Same as: l 18:52: Zofran) [place] 00 Saline No Notes: Memoria Flush 0.9% 3-22 (Same as: l 18:52: BD [place] 00 Posiflush) Labetalol No Notes: Memori a 3-22 (Same as: l 18:52: Normodyne, [place] 00 Trandate) Push over 2 minutes Give bolus over 2-3 minutes. Trazodone No Notes: Memori a Hydrochlori 3-22 (Same As: l de 50 MG 18:52: Desyrel) Soumya nn Oral Tablet 00 Miralax No Notes: Memoria 3-22 Dissolve l 18:52: in 8 oz of [place] 00 water or juice. (Same as: Miralax) Nitroglycer No Notes: Danilo jerry in 3-22 (Same l 18:52: as:Nitroqu [place] 00 ick, Nitrostat) "Do Not Crush" Sublingual tablet Morphine No Notes: Memoria 3-22 (Same l 18:52: as:MORPhin [place] 00 e Sulfate) Ondansetron No Notes: Danilo jerry 3-22 (Same as: l 18:52: Zofran) [place] 00 Saline No Notes: Memoria Flush 0.9% 3-22 (Same as: l 18:52: BD Ty 00 Posiflush) Labetalol No Notes: Memori a 3-22 (Same as: l 18:52: Normodyne, [place] 00 Trandate) Push over 2 minutes Give bolus over 2-3 minutes. Trazodone No Notes: Memori a Hydrochlori 06-15 (Same As: l de 50 MG 18:52: Desyrel) Soumya nn Oral Tablet 00 Miralax No Notes: Memoria 06-15 Dissolve l 18:52: in 8 oz of Ty 00 water or juice. (Same as: Miralax) Nitroglycer No Notes: Danilo jerry in 06-15 (Same l 18:52: as:Nitroqu [place] 00 ick, Nitrostat) "Do Not Crush" Sublingual tablet Morphine No Notes: Memoria 06-15 (Same l 18:52: as:MORPhin [place] 00 e Sulfate) Ondansetron No Notes: Danilo jerry 06-15 (Same as: l 18:52: Zofran) Ty 00 Aspirin 81 Aspirin 81 No 1{table QD Aspirin 81 81 MG 81 MG t} 81 MG Tradjenta 5 Tradjenta 5 No 1{table QD Tradjenta MG MG t} 5 MG ProAir HFA ProAir HFA No 1{puff_ 6xD ProAir HFA 108 (90 108 (90 as_need 108 (90 Base) Base) ed} Base) MCG/ACT MCG/ACT MCG/ACT Levothyroxi Levothyroxi No QD Levothyrox ne Sodium ne Sodium ine Sodium 25 MCG 25 MCG 25 MCG Montelukast Montelukast No 1{table QD Montelukas Sodium 10 Sodium 10 t} t Sodium MG MG 10 MG Gabapentin Gabapentin No 1{capsu QD Gabapentin 300 MG 300 MG le} 300 MG rOPINIRole rOPINIRole No QD rOPINIRole HCl 0.5 MG HCl 0.5 MG HCl 0.5 MG Torsemide Torsemide No Torsemide 20 MG 20 MG 20 MG Senokot S Senokot S No 1{table QD Senokot S 8.6-50 MG 8.6-50 MG t_in_th 8.6-50 MG e_eveni ng_as_n eeded} Potassium Potassium No 1{capsu BID Potassium Chloride 20 Chloride 20 le} Chloride MEQ MEQ 20 MEQ Levocetiriz Levocetiriz No 1{table QD Levocetiri ine ine t_in_th zine Dihydrochlo Dihydrochlo e_eveni Dihydrochl ride 5 MG ride 5 MG ng} oride 5 MG Lipitor 40 Lipitor 40 No 1{table QD Lipitor 40 MG MG t} MG Plavix 75 Plavix 75 No 1{table QD Plavix 75 MG MG t} MG Trelegy Trelegy No 1{puff} QD Trelegy Ellipta Ellipta Ellipta 100-62.5-25 100-62.5-25 100-62.5-2 MCG/INH MCG/INH 5 MCG/INH Immunizations Ordered Filled Immunization Date Status Comments [facility] e Immunization Name Name Influenza High Dose 2018-11-25 Completed [facility] 00:00:00 [facility] Influenza High Dose 2018-11-25 Completed [facility] 00:00:00 [facility] Influenza High Dose 2018-11-25 Completed [facility] 00:00:00 [facility] Influenza High Dose 2018-11-25 Completed [facility] 00:00:00 [facility] Influenza High Dose 2018-11-25 Completed [facility] 00:00:00 [facility] Influenza High Dose 2018-11-25 Completed [facility] of 00:00:00 [facility] Influenza High Dose 2018-11-25 Completed [facility] 00:00:00 [facility] Influenza High Dose 2018-11-25 Completed [facility] of 00:00:00 [facility] Influenza High Dose 2018-11-25 Completed [facility] of 00:00:00 [facility] Influenza High Dose 2018-11-25 Completed [facility] of 00:00:00 [facility] Influenza High Dose 2018-11-25 Completed [facility] 00:00:00 [facility] Influenza High Dose 2018-11-25 Completed [facility] 00:00:00 [facility] pneumococcal 2016-06-30 [facility] 17:42:00 pneumococcal 2016-06-30 [facility] 17:42:00 pneumococcal 2016-06-30 [facility] 17:42:00 Vital Signs Vital Name Observation Time Observation Value Comments Source height 2021-12-08 14:30:00 60 [in_i] [facility] weight 2021-12-08 14:30:00 204.2 [lb_av] [facility] temperature 2021-12-08 14:30:00 98.6 [degF] [facility] bmi 2021-12-08 14:30:00 39.88 kg/m2 [facility]-12-08 14[facility]30:00 98 % [facility] 2021-12-08 14:30:00 16 /min [facility] blood pressure 2021-12-08 14:30:00 96 mm[Hg] Common [facility] - systolic [facility] blood pressure 2021-12-08 14:30:00 53 mm[Hg] Common [facility] - diastolic [facility] HEIGHT 2020-09-11 09:44:00 177.8 cm WEIGHT 2020-09-11 09:44:00 95.255 kg HEIGHT 2020-09-11 09:44:00 177.8 cm WEIGHT 2020-09-11 09:44:00 95.255 kg HEIGHT 2020-09-07 14:08:00 177.8 cm WEIGHT 2020-09-07 14:08:00 80.74 kg HEIGHT 2020-09-07 14:08:00 177.8 cm WEIGHT 2020-09-07 14:08:00 80.74 kg Systolic blood 2019-04-25 17:33:00 106 mm[Hg] Univer sity of pressure [facility] Diastolic blood 2019-04-25 17:33:00 76 mm[Hg] Unive rs[facility] of pressure [facility] Heart rate 2019-04-25 17:33:00 77 /min [facility] Respiratory rate 2019-04-25 17:33:00 19 /min Univ ersity of [facility] Body height 2019-04-25 17:33:00 167.6 cm [facility] Body weight 2019-04-25 17:33:00 95.709 kg [facility] BMI 2019-04-25 17:33:00 34.06 kg/m2 [facility] in 2019-04-25 17:33:00 99 /min University Arterial blood by [facility] Pulse oximetry Branch Systolic blood 2018-12-06 14:38:00 134 mm[Hg] Univer sity of pressure [facility] Diastolic blood 2018-12-06 14:38:00 74 mm[Hg] Unive rsity of pressure [facility] Heart rate 2018-12-06 14:38:00 75 /min [facility] Respiratory rate 2018-12-06 14:38:00 19 /min Univ [facility] Body height 2018-12-06 14:38:00 167.6 cm [facility] Body weight 2018-12-06 14:38:00 105.235 kg [facility] BMI 2018-12-06 14:38:00 37.45 kg/m2 [facility] Oxygen saturation in 2018-12-06 14:38:00 97 /min University of Arterial blood by [facility] Pulse oximetry Branch Heart rate 2020-11-14 18:27:00 65 /min [facility] Respiratory rate 2020-11-14 18:27:00 18 /min [facility] Systolic blood 2020-11-14 17:17:17 118 mm[Hg] Univer sity of [facility] Diastolic blood 2020-11-14 17:17:17 76 mm[Hg] Unive rsity of [facility] Body temperature 2020-11-14 17:17:17 36.61 Arlen Univ ersjax of [facility] Oxygen saturation in 2020-11-14 17:17:17 96 /min University of Arterial blood by Yaima fine Pulse oximetry [facility] Body weight 2020-11-13 09:45:00 95.8 kg [facility] BMI 2020-11-13 09:45:00 33.15 kg/m2 [facility] Body height 2020-10-29 16:22:00 170 cm [facility] Respitory Rate 2016-06-30 20:27:00 Mo Snyder Systolic (mm Hg) 2016-06-30 20:27:00 Danilo Crawford Diastolic (mm Hg) 2016-06-30 20:27:00 Mem orial Ty Heart Rate 2016-06-30 20:27:00 [facility] Respitory Rate 2016-06-30 17:09:00 Memori al [place] Systolic (mm Hg) 2016-06-30 17:09:00 Danilo rial Ty Diastolic (mm Hg) 2016-06-30 17:09:00 Mem orial Ty Heart Rate 2016-06-30 17:09:00 [facility] Systolic (mm Hg) 2016-06-30 13:00:00 Danilo rial [place] Diastolic (mm Hg) 2016-06-30 13:00:00 Mem orial [place] Heart Rate 2016-06-30 13:00:00 [facility] Respitory Rate 2016-06-30 13:00:00 [facility] [place] Weight 2016-06-29 10:00:00 [facility] Weight 2016-06-28 10:23:00 [facility] Height 2016-06-25 05:04:00 177.8 cm [facility] Height 2016-06-25 03:47:00 177.8 cm [facility] Height 2016-06-24 22:55:00 177.8 cm [facility] Temperature Oral (F) 2016-06-24 14:55:00 97.6 F [facility] Weight 2016-06-24 10:00:00 [facility] Temperature Oral (F) 2016-06-20 13:00:00 97.9 F [facility] BMI Calculated 2016-06-15 16:47:00 [facility] [place] Procedures Procedure Date / Time Performing Clinician Source Performed REFERRAL- REQUEST/RESPONSE 2022-10-17 05:01:00 Doctor Unassigned , No [facility] HEPATIC FUNCTION PANEL 2020-11-14 07:17:00 Yuriy Parker [facility] COMPREHENSIVE METABOLIC 2020-11-14 07:17:00 Yuriy Parker [facility] PANEL [facility] MAGNESIUM LEVEL 2020-11-14 07:17:00 Yuriy Parker [facility] PHOSPHORUS LEVEL 2020-11-14 07:17:00 Yuriy Parker [facility] LACTATE DEHYDROGENASE 2020-11-14 07:17:00 [facility] COMPLETE BLOOD COUNT W/ 2020-11-14 07:17:00 Yanet Gurrola [facility] [place] DIFFERENTIAL [facility] URIC ACID 2020-11-14 07:17:00 Mari Lovell [facility] ALBUMIN LEVEL 2020-11-14 07:17:00 Yuriy Parker [facility] ALKALINE PHOSPHATASE 2020-11-14 07:17:00 [facility] ALANINE AMINOTRANSFERASE 2020-11-14 07:17:00 Yuriy Parker [facility] ASPARTATE AMINOTRANSFERASE 2020-11-14 07:17:00 Juan Parker [facility] TOTAL PROTEIN 2020-11-14 07:17:00 Yuriy Parker [facility] FRACTIONATED BILIRUBIN 2020-11-14 07:17:00 Yuriy Parker [facility] GLUCOSE LEVEL 2020-11-14 07:17:00 Yuriy Parker [facility] BLOOD UREA NITROGEN 2020-11-14 07:17:00 Yuriy Parker Uni [facility] ELECTROLYTE PANEL 2020-11-14 07:17:00 Yuriy Parker [facility] SERUM CREATININE 2020-11-14 07:17:00 Yuriy Parker [facility] .GLOMERULAR FILTRATION 2020-11-14 07:17:[address] [facility] CALCIUM LEVEL TOTAL 2020-11-14 07:17:00 Yuriy Parker [facility] Results CBC 2020-11-14 07:17:00 Yanet Gurrola [facility] MANUAL DIFFERENTIAL 2020-11-14 07:17:00 Yanet Gurrola [facility] OSCILLATORY PEP 2020-11-13 19:00[facility] 2020-11-13 13:00:08 [facility] HEPATIC FUNCTION PANEL 2020-11-13 08:47:00 Yuriy Parker [facility] COMPREHENSIVE METABOLIC 2020-11-13 08:47:00 Yuriy Parker [facility] PANEL [facility] MAGNESIUM LEVEL 2020-11-13 08:47:00 Yuriy Parker [facility] PHOSPHORUS LEVEL 2020-11-13 08:47:00 Yuriy Parker [facility] LACT[facility] DEHYDROGENASE 2020-11-13 08:47:00 Yanet Gurrola [facility] COMPLETE BLOOD COUNT W/ 2020-11-13 08:47:00 Yanet Gurrola [facility] TYPE AND SCREEN 2020-11-13 08:47:00 Vania Pascual [facility] APTT 2020-11-13 08:47:00 Mari Lovell [facility] URIC ACID 2020-11-13 08:47:00 Mari Lovell [facility] PROTHROMBIN TIME 2020-11-13 08:47:00 Mair Lovell [facility] ABORH 2020-11-13 08:47:00 Randolph Payne [facility] ANTIBODY SCREEN 2020-11-13 08:47:00 Randolph Payne [facility] ALBUMIN LEVEL 2020-11-13 08:47:00 Yuriy Parker [facility] ALKALINE PHOSPHATASE 2020-11-13 08:47:00 [facility]uriy [facility] ALANINE AMINOTRANSFERASE 2020-11-13 08:47:00 Yuriy Parker [facility] ASPARTATE AMINOTRANSFERASE 2020-11-13 08:47:00 Juan Parker [facility] TOTAL PROTEIN 2020-11-13 08:47:00 Yuriy Parker [facility] FRACTIONATED BILIRUBIN 2020-11-13 08:47:00 Yuriy Parker [facility] GLUCOSE LEVEL 2020-11-13 08:47:00 Yuriy Parker [facility] BLOOD UREA NITROGEN 2020-11-13 08:47:00 Yuriy Parker [facility] ELECTROLYTE PANEL 2020-11-13 08:47:00 Yuriy Parker [facility] SERUM CREATININE 2020-11-13 08:47:00 Yuriy Parker [facility] .GLOMERULAR FILTRATION 2020-11-13 08:47:[address] [facility] CALCIUM LEVEL TOTAL 2020-11-13 08:47:00 Yuriy Parker [facility] Results CBC 2020-11-13 08:47:00 Yanet Gurrola [facility] MANUAL DIFFERENTIAL 2020-11-13 08:47:00 Yanet Gurrola [facility] CLOT EXPIRATION DATE 2020-11-13 08:47:00 Randolph Payne [facility] TMP INTERPRETATION 2020-11-13 08:47:00 [facility] ANTIBODY SCREEN NEGATIVE MD Thompson [facility] OSCILLATORY PEP 2020-11-13 07:00:14 Hayden [facility] OSCILLATORY PEP 2020-11-13 01:00:09 [facility]P 2020-11-12 19:00:07 [facility] PEP 2020-11-12 13:00:08 [facility] US RENAL 2020-11-12 12:36:12 [facility] 2020-11-12 09:08:00 Yuriy Parker [facility] COMPREHENSIVE METABOLIC 2020-11-12 09:08:00 Yuriy Parker [facility] MAGNESIUM LEVEL 2020-11-12 09:08:00 Yuriy Parker [facility] PHOSPHORUS LEVEL 2020-11-12 09:08:00 Yuriy Parker [facility] LACTATE DEHYDROGENASE 2020-11-12 09:08:00 Yanet Gurrola [facility] COMPLETE BLOOD COUNT W/ 2020-11-12 09:08:00 Yanet Gurrola [facility] DIFFERENTIAL [facility] URIC ACID 2020-11-12 09:08:00 Mari Lovell [facility] ALBUMIN LEVEL 2020-11-12 09:08:00 Yuriy Parker [facility] ALKALINE PHOSPHATASE 2020-11-12 09:08:00 Yuriy Parker Un iversity [facility] ALANINE AMINOTRANSFERASE 2020-11-12 09:08:00 Yuriy Parker [facility] ASPARTATE AMINOTRANSFERASE 2020-11-12 09:08:00 Juan Parker [facility] TOTAL PROTEIN 2020-11-12 09:08:00 Yuriy Parker [facility] FRACTIONATED BILIRUBIN 2020-11-12 09:08:00 Yuriy Parker [facility] GLUCOSE LEVEL 2020-11-12 09:08:00 Yuriy Parker [facility] BLOOD UREA NITROGEN 2020-11-12 09:08:00 Yuriy Parker [facility] ELECTROLYTE PANEL 2020-11-12 09:08:00 Yuriy Parker [facility] SERUM CREATININE 2020-11-12 09:08:00 Yuriy Parker [facility] .GLOMERULAR FILTRATION 2020-11-12 09:08:[address] [facility] CALCIUM LEVEL TOTAL 2020-11-12 09:08:00 Yuriy Parker [facility] Results CBC 2020-11-12 09:08:00 Yanet Gurrola [facility] MANUAL DIFFERENTIAL 2020-11-12 09:08:00 Yanet Gurrola [facility] OSCILLATORY PEP 2020-11-12 07:00:16 [facility]P 2020-11-12 01:00:11 [facility] URINALYSIS MICROSCOPIC 2020-11-11 22:06:00 Adry Middleton [facility] SODIUM URINE 2020-11-11 22:06:00 [facility] CREATININE URINE, RANDOM 2020-11-11 22:06:[address] [facility] UREA NITROGEN URINE 2020-11-11 22:06:00 [facility] ALBUMIN LEVEL URINE 2020-11-11 22:06:00 [facility] LOVE [facility] PROTEIN / CREATININE RATIO 2020-11-11 22:06:00 [facility] Seg[facility] LOVE [facility] URINALYSIS WITH 2020-11-11 22:06:00 Abiodun Borjas [facility] MICROSCOPIC IF INDICATED Randolph Thompson [facility] TRANSFUSE RED BLOOD CELLS 2020-11-11 19:21:00 Abiodun Borjas [facility] Randolph Gallagher MD [facility] OSCILLATORY PEP 2020-11-11 19:00:42 [facility] PEP 2020-11-11 13:00:09 [facility] PREPARE RBC 2020-11-11 12:00:00 Abiodun Borjas [facility] Randolph Gallagher MD [facility] PRBC PRODUCT READY FOR 2020-11-11 12:00:00 Abiodun Borjas [facility] 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 Randolph Gallagher MD [facility] HEPATIC FUNCTION PANEL 2020-11-11 09:16:00 Yuriy Parker [facility] COMPREHENSIVE METABOLIC 2020-11-11 09:16:00 Yuriy Parker [facility] PANEL [facility] MAGNESIUM LEVEL 2020-11-11 09:16:00 Yuriy Parker [facility] PHOSPHORUS LEVEL 2020-11-11 09:16:00 Yuriy Parker [facility] LACTATE DEHYDROGENASE 2020-11-11 09:16:00 Yanet Gurrola [facility] COMPLETE BLOOD COUNT W/ 2020-11-11 09:16:00 Yanet uGrrola [facility] DIFFERENTIAL [facility] URIC ACID 2020-11-11 09:16:00 Mari Lovell [facility] ALBUMIN LEVEL 2020-11-11 09:16:00 Yuriy Parker [facility] ALKALINE PHOSPHATASE 2020-11-11 09:16:00 Yuriy Parker [facility] ALANINE AMINOTRANSFERASE 2020-11-11 09:16:00 Yuriy Parker [facility] ASPARTATE AMINOTRANSFERASE 2020-11-11 09:16:00 Juan Parker [facility] TOTAL PROTEIN 2020-11-11 09:16:00 Yuriy Parker [facility] FRACTIONATED BILIRUBIN 2020-11-11 09:16:00 Yuriy Parker [facility] GLUCOSE LEVEL 2020-11-11 09:16:00 Yuriy Parker [facility] BLOOD UREA NITROGEN 2020-11-11 09:16:00 Yuriy Parker [facility] ELECTROLYTE PANEL 2020-11-11 09:16:00 Yuriy Parker [facility] SERUM CREATININE 2020-11-11 09:16:00 Yuriy Parker [facility] .GLOMERULAR FILTRATION 2020-11-11 09:16:[address] [facility] CALCIUM LEVEL TOTAL 2020-11-11 09:16:00 Yuriy Parker [facility] Results CBC 2020-11-11 09:16:00 Yanet Gurrola [facility] MANUAL DIFFERENTIAL 2020-11-11 09:16:00 Yanet Gurrola [facility] OSCILLATORY PEP 2020-11-11 07:00:18 Hayden [facility] OSCILLATORY PEP 2020-11-11 01:00:08 Hayden [facility] XR FOOT 3+ VW LEFT 2020-11-10 21:20:23 Yanet Gurrola [facility] OSCILLATORY PEP 2020-11-10 19:00:41 [facility] COVID-19 (SARS-COV-2) 2020-11-10 18:41:00 Hayden [facility] PCR-ASYMPTOMATIC [facility] OSCILLATORY PEP 2020-11-10 13:00:11 Hayden [facility] HEPATIC FUNCTION PANEL 2020-11-10 12:55:00 Yuriy Parker [facility] COMPREHENSIVE METABOLIC 2020-11-10 12:55:00 Yuriy Parker [facility] MAGNESIUM LEVEL 2020-11-10 12:55:00 Yuriy Parker [facility] PHOSPHORUS LEVEL 2020-11-10 12:55:00 Yuriy Parker [facility] LACTATE DEHYDROGENASE 2020-11-10 12:55:00 Yanet Gurrola [facility] COMPLETE BLOOD COUNT W/ 2020-11-10 12:55:00 Yanet Gurrola [facility] TYPE AND SCREEN 2020-11-10 12:55:00 Vania Pascual [facility] APTT 2020-11-10 12:55:00 Mari Lovell [facility] URIC ACID 2020-11-10 12:55:00 Mari Lovell [facility] PROTHROMBIN TIME 2020-11-10 12:55:00 Mari Lovell [facility] ABORH 2020-11-10 12:55:00 Randolph Payne [facility] ANTIBODY SCREEN 2020-11-10 12:55:00 Randolph Payne [facility] ALBUMIN LEVEL 2020-11-10 12:55:00 Yuriy Parker [facility] ALKALINE PHOSPHATASE 2020-11-10 12:55:00 Yuriy Parker [facility] ALANINE AMINOTRANSFERASE 2020-11-10 12:55:00 Yuriy Parker [facility] ASPARTATE AMINOTRANSFERASE 2020-11-10 12:55:00 Juan Parker [facility] TOTAL PROTEIN 2020-11-10 12:55:00 Yuriy Parker [facility] FRACTIONATED BILIRUBIN 2020-11-10 12:55:00 Yuriy Parker [facility] GLUCOSE LEVEL 2020-11-10 12:55:00 Yuriy Parker [facility] BLOOD UREA NITROGEN 2020-11-10 12:55:00 Yuriy Parker [facility] ELECTROLYTE PANEL 2020-11-10 12:55:00 Yuriy Parker [facility] SERUM CREATININE 2020-11-10 12:55:00 Yuriy Parker [facility] .GLOMERULAR FILTRATION 2020-11-10 12:55:[address] [facility] CALCIUM LEVEL TOTAL 2020-11-10 12:55:00 Yuriy Parker [facility] Results CBC 2020-11-10 12:55:00 Yanet Gurrola [facility] MANUAL DIFFERENTIAL 2020-11-10 12:55:00 Yanet Gurrola [facility] TMP INTERPRETATION 2020-11-10 12:55:00 Randolph Payneit [facility] ANTIBODY SCREEN NEGATIVE MD Thompson [facility] CLOT EXPIRATION DATE 2020-11-10 12:55:00 Randolph Payne [facility] TMP CROSSMATCH 2020-11-10 12:55:00 Randolph Payne [place] [facility] INTERPRETATION [facility] OSCILLATORY PEP 2020-11-10 07:00:06 Hayden [facility] OSCILLATORY PEP 2020-11-10 01:00:11 Hayden [facility] OSCILLATORY PEP 2020-11-09 19:00:05 [facility] PERIPHERAL SMR FOR DOC 2020-11-09 16:10:00 [facility] BLOODCULTURE 2020-11-09 16:02:00 Hayden [facility] OSCILLATORY PEP 2020-11-09 13:00:08 Hayden [facility] HEPATIC FUNCTION PANEL 2020-11-09 07:45:00 Yuriy Parker [facility] COMPREHENSIVE METABOLIC 2020-11-09 07:45:00 Yuriy Parker [facility] MAGNESIUM LEVEL 2020-11-09 07:45:00 Yuriy Parker [facility] PHOSPHORUS LEVEL 2020-11-09 07:45:00 Yuriy Parker [facility] LACTATE DEHYDROGENASE 2020-11-09 07:45:00 Yanet Gurrola [facility] COMPLETE BLOOD COUNT W/ 2020-11-09 07:45:00 Yanet Gurrola [facility] URIC ACID 2020-11-09 07:45:00 Mari Lovell [facility] ALBUMIN LEVEL 2020-11-09 07:45:00 Yuriy Parker [facility] ALKALINE PHOSPHATASE 2020-11-09 07:45:00 Yuriy Parker [facility] ALANINE AMINOTRANSFERASE 2020-11-09 07:45:00 Yuriy Parker [facility] ASPARTATE AMINOTRANSFERASE 2020-11-09 07:45:00 Juan Parker [facility] TOTAL PROTEIN 2020-11-09 07:45:00 Yuriy Parker [facility] FRACTIONATED BILIRUBIN 2020-11-09 07:45:00 Yuriy Parker [facility] GLUCOSE LEVEL 2020-11-09 07:45:00 Yuriy Parker [facility] BLOOD UREA NITROGEN 2020-11-09 07:45:00 Yuriy Parker [facility] ELECTROLYTE PANEL 2020-11-09 07:45:00 Yuriy Parker [facility] SERUM CREATININE 2020-11-09 07:45:00 Yuriy Parker [facility] .GLOMERULAR FILTRATION 2020-11-09 07:45:[address] [facility] CALCIUM LEVEL TOTAL 2020-11-09 07:45:00 Yuriy Parker [facility] Results CBC 2020-11-09 07:45:00 Yanet Gurrola [facility] MANUAL DIFFERENTIAL 2020-11-09 07:45:00 Yanet Gurrola [facility] OSCILLATORY PEP 2020-11-09 07:00:10 [facility] PEP 2020-11-09 01:00:10 Hayden [facility] OSCILLATORY PEP 2020-11-08 19:00:45 [facility] OSCILL[facility]ORY PEP 2020-11-08 13:00:07 Hayden [facility] XR CHEST 2 VW 2020-11-08 12:42:57 [facility] VRE CULTURE 2020-11-08 10:56:00 Yuriy Parker [facility] HEPATIC FUNCTION PANEL 2020-11-08 08:58:00 Yuriy Parker [facility] COMPREHENSIVE METABOLIC 2020-11-08 08:58:00 Yuriy Parker [facility] PANEL [facility] MAGNESIUM LEVEL 2020-11-08 08:58:00 Yuriy Parker [facility] PHOSPHORUS LEVEL 2020-11-08 08:58:00 Yuriy Parker [facility] LACTATE DEHYDROGENASE 2020-11-08 08:58:00 Yanet Gurrola [facility] COMPLETE BLOOD COUNT W/ 2020-11-08 08:58:00 Yanet Gurrola [facility] DIFFERENTIAL [facility] URIC ACID 2020-11-08 08:58:00 Mari Lovell [facility] ALBUMIN LEVEL 2020-11-08 08:58:00 Yuriy Parker [facility] ALKALINE PHOSPHATASE 2020-11-08 08:58:00 Yuriy Parker [facility] ALANINE AMINOTRANSFERASE 2020-11-08 08:58:00 Yuriy Parker [facility] ASPARTATE AMINOTRANSFERASE 2020-11-08 08:58:00 Juan Parker [facility] TOTAL PROTEIN 2020-11-08 08:58:00 Yuriy Parker [facility] FRACTIONATED BILIRUBIN 2020-11-08 08:58:00 Yuriy Parker [facility] GLUCOSE LEVEL 2020-11-08 08:58:00 Yuriy Parker [facility] BLOOD UREA NITROGEN 2020-11-08 08:58:00 Yuriy Parker [facility] ELECTROLYTE PANEL 2020-11-08 08:58:00 Yuriy Parker [facility] SERUM CREATININE 2020-11-08 08:58:00 Yuriy Parker [facility] .GLOMERULAR FILTRATION 2020-11-08 08:58:00 Yuriy Parker [facility] RATE [facility] CALCIUM LEVEL TOTAL 2020-11-08 08:58:00 Yuriy Parker [facility] Results CBC 2020-11-08 08:58:00 Yanet Gurrola [facility] MANUAL DIFFERENTIAL 2020-11-08 08:58:00 Yanet Gurrola [facility] OSCILLATORY PEP 2020-11-08 07:00:15 Hayden [facility] OSCILLATORY PEP 2020-11-08 01:00:07 [facility] LOWER RESPIRATORY CULTURE 2020-11-08 00:20:00 [facility] W/ GRAM STAIN [facility] OSCILLATORY PEP 2020-11-07 19:00:27 [facility] OSC[facility] PEP 2020-11-07 13:00:08 Hayden [facility] HEPATIC FUNCTION PANEL 2020-11-07 08:41:00 Yuriy Parker [facility] COMPREHENSIVE METABOLIC 2020-11-07 08:41:00 Yuriy Parker [facility] MAGNESIUM LEVEL 2020-11-07 08:41:00 Yuriy Parker [facility] PHOSPHORUS LEVEL 2020-11-07 08:41:00 Yuriy Parker [facility] LACTATE DEHYDROGENASE 2020-11-07 08:41:00 Yanet Gurrola [facility] COMPLETE BLOOD COUNT W/ 2020-11-07 08:41:00 Yanet Gurrola Uni [facility] TYPE AND SCREEN 2020-11-07 08:41:00 Vania Pascual [facility] URIC ACID 2020-11-07 08:41:00 Mari Lovell [facility] ABORH 2020-11-07 08:41:00 [facility] ANTIBODY SCREEN 2020-11-07 08:41:00 [facility] ALBUMIN LEVEL 2020-11-07 08:41:00 Yuriy Parker [facility] ALKALINE PHOSPHATASE 2020-11-07 08:41:00 Yuriy Parker [facility] ALANINE AMINOTRANSFERASE 2020-11-07 08:41:00 Yuriy Parker [facility] ASPARTATE AMINOTRANSFERASE 2020-11-07 08:41:00 Juan Parker [facility] TOTAL PROTEIN 2020-11-07 08:41:00 Yuriy Parker [facility] FRACTIONATED BILIRUBIN 2020-11-07 08:41:00 Yuriy Parker [facility] GLUCOSE LEVEL 2020-11-07 08:41:00 Yuriy Parker [facility] BLOOD UREA NITROGEN 2020-11-07 08:41:00 Yuriy Parker Uni [facility] ELECTROLYTE PANEL 2020-11-07 08:41:00 Yuriy Parker [facility] SERUM CREATININE 2020-11-07 08:41:00 Yuriy Parekr [facility] .GLOMERULAR FILTRATION 2020-11-07 08:41:00 Yuriy Parker [facility] RATE [facility] CALCIUM LEVEL TOTAL 2020-11-07 08:41:00 Yuriy Parker [facility] Results CBC 2020-11-07 08:41:00 Yanet Gurrola [facility] MANUAL DIFFERENTIAL 2020-11-07 08:41:00 Yanet Gurrola [facility] CLOT EXPIRATION DATE 2020-11-07 08:41:00 Randolph Payne [facility] TMP INTERPRETATION 2020-11-07 08:41:00 Randolph Payne [facility] ANTIBODY SCREEN NEGATIVE MD Thompson [facility] OSCILLATORY PEP 2020-11-07 07:00:14 [facility]P 2020-11-07 01:00:10 [facility] [place] ECHOCARDIOGRAM 2D LIMITED 2020-11-06 19:42:45 Evi Turner [facility] - FOLLOW UP [facility] OSCILLATORY PEP 2020-11-06 19:00[facility] 2020-11-06 13:00:14 [facility] HE[facility]IC FUNCTION PANEL 2020-11-06 08:26:00 Yuriy Parker [facility] COMPREHENSIVE METABOLIC 2020-11-06 08:26:00 Yuriy Parker [facility] PANEL [facility] MAGNESIUM LEVEL 2020-11-06 08:26:00 Yuriy Parker [facility] PHOSPHORUS LEVEL 2020-11-06 08:26:00 Yuriy Parker [facility] LACTATE DEHYDROGENASE 2020-11-06 08:26:00 [facility] COMPLETE BLOOD COUNT W/ 2020-11-06 08:26:00 Yanet Gurrola [facility] DIFFERENTIAL [facility] APTT 2020-11-06 08:26:00 Mari Lovell [facility] URIC ACID 2020-11-06 08:26:00 Mari Lovell [facility] PROTHROMBIN TIME 2020-11-06 08:26:00 Mari Lovell [facility] ALBUMIN LEVEL 2020-11-06 08:26:00 Yuriy Parker [facility] ALKALINE PHOSPHATASE 2020-11-06 08:26:00 [facility] ALANINE AMINOTRANSFERASE 2020-11-06 08:26:00 Yuriy Parker [facility] ASPARTATE AMINOTRANSFERASE 2020-11-06 08:26:00 Juan Parker [facility] TOTAL PROTEIN 2020-11-06 08:26:00 Yuriy Parker [facility] FRACTIONATED BILIRUBIN 2020-11-06 08:26:00 Yuriy Parker [facility] GLUCOSE LEVEL 2020-11-06 08:26:00 Yuriy Parker [facility] BLOOD UREA NITROGEN 2020-11-06 08:26:00 Yuriy Parker [facility] ELECTROLYTE PANEL 2020-11-06 08:26:00 [facility] SERUM CREATININE 2020-11-06 08:26:00 Yuriy Parker [facility] .GLOMERULAR FILTRATION 2020-11-06 08:26:[address] [facility] CALCIUM LEVEL TOTAL 2020-11-06 08:26:00 [facility] CBC 2020-11-06 08:26:00 Yanet Gurrola [facility] MANUAL DIFFERENTIAL 2020-11-06 08:26:00 Yanet Gurrola [facility] OSCILLATORY PEP 2020-11-06 01:00:09 Hayden [facility] XR CHEST 1 VW 2020-11-05 20:44:40 Evi Turner [facility] OSCILLATORY PEP 2020-11-05 19:00:05 [facility] PEP 2020-11-05 13:00:07 Hayden [facility] HEPATIC FUNCTION PANEL 2020-11-05 07:14:00 Yuriy Parker [facility] COMPREHENSIVE METABOLIC 2020-11-05 07:14:00 Yuriy Parker [facility] PANEL [facility] MAGNESIUM LEVEL 2020-11-05 07:14:00 Yuriy Parker [facility] PHOSPHORUS LEVEL 2020-11-05 07:14:00 Yuriy Parker [facility] LACTATE DEHYDROGENASE 2020-11-05 07:14:00 Yanet [facility] COMPLETE BLOOD COUNT W/ 2020-11-05 07:14:00 Yanet [facility]rola [facility] [place] DIFFERENTIAL [facility] URIC ACID 2020-11-05 07:14:00 Mari Lovell [facility] ALBUMIN LEVEL 2020-11-05 07:14:00 Yuriy Parker [facility] ALKALINE PHOSPHATASE 2020-11-05 07:14:00 Yuriy [facility] ALANINE AMINOTRANSFERASE 2020-11-05 07:14:00 Yuriy Parker [facility] ASPARTATE AMINOTRANSFERASE 2020-11-05 07:14:00 Juan Parker [facility] TOTAL PROTEIN 2020-11-05 07:14:00 Yuriy Parker [facility] FRACTIONATED BILIRUBIN 2020-11-05 07:14:00 Yuriy Parker [facility] GLUCOSE LEVEL 2020-11-05 07:14:00 Yuriy Parker [facility] BLOOD UREA NITROGEN 2020-11-05 07:14:00 Yuriy Parker [facility] ELECTROLYTE PANEL 2020-11-05 07:14:00 Yuriy Parker [facility] SERUM CREATININE 2020-11-05 07:14:00 Yuriy Parker [facility] .GLOMERULAR FILTRATION 2020-11-05 07:14:00 Yuriy Parker [facility] RATE [facility] CALCIUM LEVEL TOTAL 2020-11-05 07:14:00 Yuriy Parker [facility] Results CBC 2020-11-05 07:14:00 Yanet Gurrola [facility] MANUAL DIFFERENTIAL 2020-11-05 07:14:00 aYnet Gurrola [facility] OSCILLATORY PEP 2020-11-05 02:07:06 Hayden [facility] o [facility] HEPATIC FUNCTION PANEL 2020-11-04 08:46:00 Yuriy Parker [facility] COMPREHENSIVE METABOLIC 2020-11-04 08:46:00 Yuriy Parker [facility] MAGNESIUM LEVEL 2020-11-04 08:46:00 Yuriy Parker [facility] PHOSPHORUS LEVEL 2020-11-04 08:46:00 Yuriy Parker [facility] LACTATE DEHYDROGENASE 2020-11-04 08:46:00 Yanet [facility] COMPLETE BLOOD COUNT W/ 2020-11-04 08:46:00 Yanet Gurrola [facility] DIFFERENTIAL [facility] TYPE AND SCREEN 2020-11-04 08:46:00 Vania Pascual [facility] URIC ACID 2020-11-04 08:46:00 Mari Lovell [facility] ABORH 2020-11-04 08:46:00 [facility] ANTIBODY SCREEN 2020-11-04 08:46:00 [facility] ALBUMIN LEVEL 2020-11-04 08:46:00 Yuriy Parker [facility] ALKALINE PHOSPHATASE 2020-11-04 08:46:00 Yuriy Parker [facility] ALANINE AMINOTRANSFERASE 2020-11-04 08:46:00 Yuriy Parker [facility] ASPARTATE AMINOTRANSFERASE 2020-11-04 08:46:00 Juan Parker [facility] TOTAL PROTEIN 2020-11-04 08:46:00 Yuriy Parker [facility] FRACTIONATED BILIRUBIN 2020-11-04 08:46:00 Yuriy Parker [facility] GLUCOSE LEVEL 2020-11-04 08:46:00 Yuriy Parker [facility] BLOOD UREA NITROGEN 2020-11-04 08:46:00 Yuriy Parker [facility] ELECTROLYTE PANEL 2020-11-04 08:46:00 [facility] Parker [facility] SERUM CREATININE 2020-11-04 08:46:00 Yuriy Parker [facility] .GLOMERULAR FILTRATION 2020-11-04 08:46:00 Yuriy Parker [facility] RATE [facility] CALCIUM LEVEL TOTAL 2020-11-04 08:46:00 Yuriy Parker [facility] Results CBC 2020-11-04 08:46:00 Yanet Gurrola [facility] MANUAL DIFFERENTIAL 2020-11-04 08:46:00 aYnet Gurrola [facility] CLOT EXPIRATION DATE 2020-11-04 08:46:00 Randolph Payne [facility] TMP INTERPRETATION 2020-11-04 08:46:00 Randolph Payne [facility] ANTIBODY SCREEN NEGATIVE [facility] POC GLUCOSE SCREEN 2020-11-04 04:28:00 Kristina Blake [facility] COVID-19 (SARS-COV-2) 2020-11-03 11:37:00 Kristina Blake [facility] PCR-ASYMPTOMATIC [facility] HEPATIC FUNCTION PANEL 2020-11-03 08:10:00 Yuriy Parker [facility] COMPREHENSIVE METABOLIC 2020-11-03 08:10:00 Yuriy Parker [facility] PANEL [facility] MAGNESIUM LEVEL 2020-11-03 08:10:00 Yuriy Parker [facility] PHOSPHORUS LEVEL 2020-11-03 08:10:00 Yuriy Parker [facility] LACTATE DEHYDROGENASE 2020-11-03 08:10:00 Yanet Gurrola [facility] COMPLETE BLOOD COUNT W/ 2020-11-03 08:10:00 Yanet Gurrola [facility] DIFFERENTIAL [facility] APTT 2020-11-03 08:10:00 Mari Lovell [facility] URIC ACID 2020-11-03 08:10:00 Mari Lovell [facility] PROTHROMBIN TIME 2020-11-03 08:10:00 Mari Lovell [facility] ALBUMIN LEVEL 2020-11-03 08:10:00 Yuriy Parker [facility] ALKALINE PHOSPHATASE 2020-11-03 08:10:00 Yuriy Parker [facility] ALANINE AMINOTRANSFERASE 2020-11-03 08:10:00 Yuriy Parker [facility] ASPARTATE AMINOTRANSFERASE 2020-11-03 08:10:00 Juan Parker [facility] TOTAL PROTEIN 2020-11-03 08:10:00 Yuriy Parker [facility] FRACTIONATED BILIRUBIN 2020-11-03 08:10:00 Yuriy Parker [facility] GLUCOSE LEVEL 2020-11-03 08:10:00 Yuriy Parker [facility] BLOOD UREA NITROGEN 2020-11-03 08:10:00 Yuriy Parker [facility] ELECTROLYTE PANEL 2020-11-03 08:10:00 Yuriy Parker [facility] SERUM CREATININE 2020-11-03 08:10:00 Yuriy Parker [facility] .GLOMERULAR FILTRATION 2020-11-03 08:10:[address] [facility] CALCIUM LEVEL TOTAL 2020-11-03 08:10:00 Yuriy Parker [facility] Results CBC 2020-11-03 08:10:00 Yanet Gurrola [facility] MANUAL DIFFERENTIAL 2020-11-03 08:10:00 Yanet Gurrola [facility] RIGHT HEART CATH 2020-11-02 15:17:00 Cj Coyne [facility] POC OXIMETRY VENOUS 2020-11-02 15:00:00 Hayden [facility] POC OXIMETRY VENOUS 2020-11-02 14:57:00 Hayden [facility] APTT 2020-11-02 09:41:00 Cj Coyne [facility] PROTHROMBIN TIME 2020-11-02 09:41:00 Cj Coyne [facility] IMMATURE PLATELET FRACTION 2020-11-02 09:41:00 Cj Coyne [facility] RETICULOCYTE COUNT 2020-11-02 09:41:00 Cj Coyne [facility] AUTOMATED [facility] HEPATIC FUNCTION PANEL 2020-11-02 09:41:00 Yuriy Parker [facility] COMPREHENSIVE METABOLIC 2020-11-02 09:41:00 Yuriy Parker [facility] MAGNESIUM LEVEL 2020-11-02 09:41:00 Yuriy Parker [facility] PHOSPHORUS LEVEL 2020-11-02 09:41:00 [facility]uriy Parker [facility] LACTATE DEHYDROGENASE 2020-11-02 09:41:00 Yanet [facility]rol[facility] COMPLETE BLOOD COUNT W/ 2020-11-02 09:41:00 Yanet [facility]rol[facility] URIC ACID 2020-11-02 09:41:00 Mari Lovell [facility] ALBUMIN LEVEL 2020-11-02 09:41:00 Yuriy Parker [facility] ALKALINE PHOSPHATASE 2020-11-02 09:41:00 Yuriy Parker Un [facility] ALANINE AMINOTRANSFERASE 2020-11-02 09:41:00 Yuriy Parker [facility] ASPARTATE AMINOTRANSFERASE 2020-11-02 09:41:00 Juan Parker [facility] TOTAL PROTEIN 2020-11-02 09:41:00 Yuriy Parker [facility] FRACTIONATED BILIRUBIN 2020-11-02 09:41:00 Yuriy Parker [facility] GLUCOSE LEVEL 2020-11-02 09:41:00 Yuriy Parker [facility] BLOOD UREA NITROGEN 2020-11-02 09:41:00 Yuriy Parker [facility] ELECTROLYTE PANEL 2020-11-02 09:41:00 Yuriy Parker [facility] SERUM CREATININE 2020-11-02 09:41:00 Yuriy Parker [facility] .GLOMERULAR FILTRATION 2020-11-02 09:41:[address] [facility] CALCIUM LEVEL TOTAL 2020-11-02 09:41:00 Yuriy Parker [facility] Results CBC 2020-11-02 09:41:00 Yanet Gurrola [facility] MANUAL DIFFERENTIAL 2020-11-02 09:41:00 Yanet Gurrola [facility] TRANSFUSE RED BLOOD CELLS 2020-11-01 16:00:00 Kristina Blake [facility] PREPARE RBC 2020-11-01 11:07:00 Kristina Blake [place] [facility] PRBC PRODUCT READY FOR 2020-11-01 11:07:00 Kristina [facility] 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 [facility] VRE CULTURE 2020-11-01 10:36:00 Yuriy Parker [facility] HEPATIC FUNCTION PANEL 2020-11-01 09:56:00 Yuriy Parker [facility] COMPREHENSIVE METABOLIC 2020-11-01 09:56:00 Yuriy Parker [facility] PANEL [facility] MAGNESIUM LEVEL 2020-11-01 09:56:00 Yuriy Parker [facility] PHOSPHORUS LEVEL 2020-11-01 09:56:00 Yuriy Parker [facility] LACTATE DEHYDROGENASE 2020-11-01 09:56:00 Yanet Gurrola [facility] COMPLETE BLOOD COUNT W/ 2020-11-01 09:56:00 Yanet Gurrola [facility] DIFFERENTIAL [facility] TYPE AND SCREEN 2020-11-01 09:56:00 Vania Pascual [facility] URIC ACID 2020-11-01 09:56:00 aMri Lovell [facility] ABORH 2020-11-01 09:56:00 [facility] ANTIBODY SCREEN 2020-11-01 09:56:00 [facility] ALBUMIN LEVEL 2020-11-01 09:56:00 Yuriy Parker [facility] ALKALINE PHOSPHATASE 2020-11-01 09:56:00 Yuriy Parker [facility] ALANINE AMINOTRANSFERASE 2020-11-01 09:56:00 Yuriy Parker [facility] ASPARTATE AMINOTRANSFERASE 2020-11-01 09:56:00 Juan Parker [facility] TOTAL PROTEIN 2020-11-01 09:56:00 Yuriy Parker [facility] FRACTIONATED BILIRUBIN 2020-11-01 09:56:00 Yuriy Parker [facility] GLUCOSE LEVEL 2020-11-01 09:56:00 Yuriy Parker [facility] BLOOD UREA NITROGEN 2020-11-01 09:56:00 Yuriy Parker [facility] ELECTROLYTE PANEL 2020-11-01 09:56:00 Yuriy Parker [facility] SERUM CREATININE 2020-11-01 09:56:00 Yuriy Parker [facility] .GLOMERULAR FILTRATION 2020-11-01 09:56:00 Yuriy Parker [facility] RATE [facility] CALCIUM LEVEL TOTAL 2020-11-01 09:56:00 Yuriy Parker [facility] Results CBC 2020-11-01 09:56:00 Yanet Gurrola [facility] MANUAL DIFFERENTIAL 2020-11-01 09:56:00 Yanet Gurrola [facility] CLOT EXPIRATION DATE 2020-11-01 09:56:00 Randolph Payne [facility] TMP INTERPRETATION 2020-11-01 09:56:00 Randolph Payne [facility] ANTIBODY SCREEN NEGATIVE MD [facility] NT PRO BNP 2020-10-31 09:13:00 Mari Lovell [facility] HEPATIC FUNCTION PANEL 2020-10-31 09:13:00 Yuriy Parker [facility] COMPREHENSIVE METABOLIC 2020-10-31 09:13:00 Yuriy Parker [facility] PANEL [facility] MAGNESIUM LEVEL 2020-10-31 09:13:00 Yuriy Parker [facility] PHOSPHORUS LEVEL 2020-10-31 09:13:00 Yuriy Parker [facility] LACTATE DEHYDROGENASE 2020-10-31 09:13:00 Yanet Gurrola [facility] COMPLETE BLOOD COUNT W/ 2020-10-31 09:13:00 Yanet Gurrola [facility] DIFFERENTIAL [facility] URIC ACID 2020-10-31 09:13:00 Mari Lovell [facility] ALBUMIN LEVEL 2020-10-31 09:13:00 Yuriy Parker [facility] ALKALINE PHOSPHATASE 2020-10-31 09:13:00 Yuriy Parker [facility] ALANINE AMINOTRANSFERASE 2020-10-31 09:13:00 Yuriy Parker [facility] ASPARTATE AMINOTRANSFERASE 2020-10-31 09:13:00 Juan Parker [facility] TOTAL PROTEIN 2020-10-31 09:13:00 Yuriy Parker [facility] FRACTIONATED BILIRUBIN 2020-10-31 09:13:00 Yuriy Parker [facility] GLUCOSE LEVEL 2020-10-31 09:13:00 Yuriy Parker [facility] BLOOD UREA NITROGEN 2020-10-31 09:13:00 Yuriy Parker Uni [facility] ELECTROLYTE PANEL 2020-10-31 09:13:00 [facility]uriy Parker [facility] SERUM CREATININE 2020-10-31 09:13:00 Yuriy Parker [facility] .GLOMERULAR FILTRATION 2020-10-31 09:13:[address] [facility] CALCIUM LEVEL TOTAL 2020-10-31 09:13:00 Yuriy Parker [facility] Results CBC 2020-10-31 09:13:00 Yanet Gurrola [facility] MANUAL DIFFERENTIAL 2020-10-31 09:13:00 Yanet Gurrola [facility] TRANSFUSE RED BLOOD CELLS 2020-10-30 20:20:00 Kristina [facility] URINALYSIS MICROSCOPIC 2020-10-30 18:46:00 Kristina [facility] MICROALBUMIN/CREATININE 2020-10-30 18:46:00 Denny Nayak [facility] RATIO, URINE [facility] PROTEIN / CREATININE RATIO 2020-10-30 18:46:00 Denny Nayak [facility] URINE [facility] ALBUMIN LEVEL URINE 2020-10-30 18:46:00 [facility] WITH 2020-10-30 18:46:00 Kristina Blake [place] MICROSCOPIC IF INDICATED MD Thompson [facility] LOWER RESPIRATORY CULTURE 2020-10-30 18:46:00 [facility] W/ GRAM STAIN [facility] POC GLUCOSE SCREEN 2020-10-30 14:02:00 [facility] 2020-10-30 09:21:00 Bebe Blake [place] [facility] PRBC PRODUCT READY FOR 2020-10-30 09:21:00 Kristina Blake [facility] 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 [facility] HEPATIC FUNCTION PANEL 2020-10-30 08:45:00 Yuriy Parker [facility] COMPREHENSIVE METABOLIC 2020-10-30 08:45:00 Yuriy Parker [facility] PANEL [facility] MAGNESIUM LEVEL 2020-10-30 08:45:00 Yuriy Parker [facility] PHOSPHORUS LEVEL 2020-10-30 08:45:00 Yuriy Parker [facility] LACTATE DEHYDROGENASE 2020-10-30 08:45:00 Yanet Gurrola [facility] COMPLETE BLOOD COUNT W/ 2020-10-30 08:45:00 Yanet Gurrola Uni [facility] DIFFERENTIAL [facility] APTT 2020-10-30 08:45:00 Mari Lovell [facility] URIC ACID 2020-10-30 08:45:00 Mari Lovell [facility] PROTHROMBIN TIME 2020-10-30 08:45:00 Mari Lovell [facility] ALBUMIN LEVEL 2020-10-30 08:45:00 Yuriy Parker [facility] ALKALINE PHOSPHATASE 2020-10-30 08:45:00 Yuriy Parker [facility] ALANINE AMINOTRANSFERASE 2020-10-30 08:45:00 Yuriy Parker [facility] ASPARTATE AMINOTRANSFERASE 2020-10-30 08:45:00 Juan Parker [facility] TOTAL PROTEIN 2020-10-30 08:45:00 Yuriy Parker [facility] FRACTIONATED BILIRUBIN 2020-10-30 08:45:00 Yuriy Parker [facility] GLUCOSE LEVEL 2020-10-30 08:45:00 Yuriy Parker [facility] BLOOD UREA NITROGEN 2020-10-30 08:45:00 Yuriy Parker [facility] ELECTROLYTE PANEL 2020-10-30 08:45:00 [facility]uriy Parker [facility] SERUM CREATININE 2020-10-30 08:45:00 Yuriy Parker [facility] .GLOMERULAR FILTRATION 2020-10-30 08:45:00 Yuriy Parker [facility] RATE [facility] CALCIUM LEVEL TOTAL 2020-10-30 08:45:00 Yuriy Parker [facility] Results CBC 2020-10-30 08:45:00 Yanet Gurrola [facility] MANUAL DIFFERENTIAL 2020-10-30 08:45:00 Yanet Gurrola [facility] POC GLUCOSE SCREEN 2020-10-30 05:05:00 Hayden [facility] POC GLUCOSE SCREEN 2020-10-29 22:56:00 Hayden [facility] ECHOCARDIOGRAM 2D COMPLETE 2020-10-29 16:59:06 Tre Banerjee [facility] POC GLUCOSE SCREEN 2020-10-29 16:54:00 Hayden [facility] POC GLUCOSE SCREEN 2020-10-29 13:00:00 Hayden [facility] HEPATIC FUNCTION PANEL 2020-10-29 09:26:00 Yuriy Parker [facility] COMPREHENSIVE METABOLIC 2020-10-29 09:26:00 Yuriy Parker [facility] MAGNESIUM LEVEL 2020-10-29 09:26:00 Yuriy Parker [facility] PHOSPHORUS LEVEL 2020-10-29 09:26:00 Yuriy Parker [facility] LACTATE DEHYDROGENASE 2020-10-29 09:26:00 Yanet Gurrola [facility] COMPLETE BLOOD COUNT W/ 2020-10-29 09:26:00 Yanet Gurrola [facility] DIFFERENTIAL [facility] TYPE AND SCREEN 2020-10-29 09:26:00 SamaraVania donahue [facility] URIC ACID 2020-10-29 09:26:00 Mari Lovell [facility] ABORH 2020-10-29 09:26:00 [facility] ANTIBODY SCREEN 2020-10-29 09:26:00 [facility] ALB[facility] 2020-10-29 09:26:00 Yuriy Parker [facility] ALKALINE PHOSPHATASE 2020-10-29 09:26:00 Yuriy Parker [facility] ALANINE AMINOTRANSFERASE 2020-10-29 09:26:00 Yuriy Parker [facility] ASPARTATE AMINOTRANSFERASE 2020-10-29 09:26:00 Juan Parker [facility] TOTAL PROTEIN 2020-10-29 09:26:00 Yuriy Parker [facility] FRACTIONATED BILIRUBIN 2020-10-29 09:26:00 Yuriy Parker [facility] GLUCOSE LEVEL 2020-10-29 09:26:00 Yuriy Parker [facility] BLOOD UREA NITROGEN 2020-10-29 09:26:00 Yuriy Parker [facility] ELECTROLYTE PANEL 2020-10-29 09:26:00 Yuriy Parker [facility] SERUM CREATININE 2020-10-29 09:26:00 Yuriy Parker [facility] .GLOMERULAR FILTRATION 2020-10-29 09:26:[address] [facility] CALCIUM LEVEL TOTAL 2020-10-29 09:26:00 Yuriy Parker [facility] Results CBC 2020-10-29 09:26:00 Yanet Gurrola [facility] MANUAL DIFFERENTIAL 2020-10-29 09:26:00 Yanet Gurrola [facility] Center CLOT EXPIRATION DATE 2020-10-29 09:26:00 Randolph Payne [facility] TMP INTERPRETATION 2020-10-29 09:26:00 Randolph Payne [facility] ANTIBODY SCREEN NEGATIVE MD Thompson [facility] TMP CROSSMATCH 2020-10-29 09:26:00 Randolph Payne [facility] INTERPRETATION [facility] [place] OSCILLATORY PEP 2020-10-29 07:00:13 Banerjee, [facility] [place] OSCILLATORY PEP 2020-10-29 01:00:08 Lavonne [facility] POC GLUCOSE SCREEN 2020-10-28 22:29:00 Hayden [facility] [place] OSCILLATORY PEP 2020-10-28 19:00:21 Lavonne [facility] POC GLUCOSE SCREEN 2020-10-28 17:17:00 Hayden [facility] PROTEIN / CREATININE RATIO 2020-10-28 17:14:00 Denny Nayak [facility] URINE [facility] MICROALBUMIN/CREATININE 2020-10-28 17:14:00 Denny Nayak [facility] RATIO, URINE [facility] ALBUMIN LEVEL URINE 2020-10-28 17:14:00 [facility] [place] NT PRO BNP 2020-10-28 15:56:00 Lavonne [facility] [place] XR CHEST 1 VW PORTABLE 2020-10-28 15:46:[address] [facility] POC GLUCOSE SCREEN 2020-10-28 14:25:00 Hayden [facility] Center POC GLUCOSE SCREEN 2020-10-28 13:58:00 Hayden [facility] HEPATIC FUNCTION PANEL 2020-10-28 09:39:00 Yuriy Parker [facility] COMPREHENSIVE METABOLIC 2020-10-28 09:39:00 Yuriy Parker [facility] MAGNESIUM LEVEL 2020-10-28 09:39:00 Yuriy Parker [facility] PHOSPHORUS LEVEL 2020-10-28 09:39:00 Yuriy Parker [facility] LACTATE DEHYDROGENASE 2020-10-28 09:39:00 Yanet [facility] COMPLETE BLOOD COUNT W/ 2020-10-28 09:39:00 Yanet Gurrola [facility] DIFFERENTIAL [facility] URIC ACID 2020-10-28 09:39:00 Mari Lovell [facility] ALBUMIN LEVEL 2020-10-28 09:39:00 Yuriy Parker [facility] ALKALINE PHOSPHATASE 2020-10-28 09:39:00 [facility] ALANINE AMINOTRANSFERASE 2020-10-28 09:39:00 Yuriy Parker [facility] ASPARTATE AMINOTRANSFERASE 2020-10-28 09:39:00 Juan Parker [facility] TOTAL PROTEIN 2020-10-28 09:39:00 Yuriy Parker [facility] FRACTIONATED BILIRUBIN 2020-10-28 09:39:00 Yuriy Parker [facility] GLUCOSE LEVEL 2020-10-28 09:39:00 Yuriy Parker [facility] BLOOD UREA NITROGEN 2020-10-28 09:39:00 Yuriy Parker [facility] ELECTROLYTE PANEL 2020-10-28 09:39:00 Yuriy Parker [facility] SERUM CREATININE 2020-10-28 09:39:00 Yuriy Parker [facility] .GLOMERULAR FILTRATION 2020-10-28 09:39:00 Yuriy Parker [facility] RATE [facility] CALCIUM LEVEL TOTAL 2020-10-28 09:39:00 [facility] Results CBC 2020-10-28 09:39:00 Yanet Gurrola [facility] MANUAL DIFFERENTIAL 2020-10-28 09:39:00 Yanet Gurrola [facility] OSCILLATORY PEP 2020-10-28 07:00:14 Banerjee [facility] POC GLUCOSE SCREEN 2020-10-28 05:15:00 Hayden [facility] OSCILLATORY PEP 2020-10-28 01:00:07 Lavonne [facility] EKG, 12-LEAD (PORTABLE) 2020-10-28 00:00:00 Tre Banerjee [facility] POC GLUCOSE SCREEN 2020-10-27 23:00:00 Hayden [facility] OSCILLATORY PEP 2020-10-27 19:00:51 Banerjee [facility] COVID-19 (SARS-COV-2) 2020-10-27 17:51:00 Randolph Payne [facility] PCR-ASYMPTOMATIC [facility] URINE CULTURE 2020-10-27 17:22:00 Mari Lov[facility] POC GLUCOSE SCREEN 2020-10-27 16:36:00 Hayden [facility] TOBRAMYCIN LEVEL RANDOM 2020-10-27 14:55:00 Kaykay Dodd [facility] POC GLUCOSE SCREEN 2020-10-27 10:18:00 Randolph Payne [facility] HBV DNA QUANT 2020-10-27 08:32:00 Mari Lovell [facility] PROTHROMBIN TIME 2020-10-27 08:32:00 Yuriy Parker [facility] APTT 2020-10-27 08:32:00 Yuriy Parker [facility] HEPATIC FUNCTION PANEL 2020-10-27 08:32:00 Yuriy Parker [facility] COMPREHENSIVE METABOLIC 2020-10-27 08:32:00 Yuriy Parker [facility] PANEL [facility] MAGNESIUM LEVEL 2020-10-27 08:32:00 Yuriy Parker [facility] PHOSPHORUS LEVEL 2020-10-27 08:32:00 Yuriy Parker [facility] LACTATE DEHYDROGENASE 2020-10-27 08:32:00 Yanet Gurrola [facility] FERRITIN LVL 2020-10-27 08:32:00 Yanet Gurrola [facility] COMPLETE BLOOD COUNT W/ 2020-10-27 08:32:00 Yanet Gurrola [facility] DIFFERENTIAL [facility] ALBUMIN LEVEL 2020-10-27 08:32:00 Yuriy Parker [facility] ALKALINE PHOSPHATASE 2020-10-27 08:32:00 [facility] ALANINE AMINOTRANSFERASE 2020-10-27 08:32:00 Yuriy Parker [facility] ASPARTATE AMINOTRANSFERASE 2020-10-27 08:32:00 Juan Parker [facility] TOTAL PROTEIN 2020-10-27 08:32:00 Yuriy Parker [facility] FRACTIONATED BILIRUBIN 2020-10-27 08:32:00 Yuriy Parker [facility] GLUCOSE LEVEL 2020-10-27 08:32:00 Yuriy Parker [facility] BLOOD UREA NITROGEN 2020-10-27 08:32:00 Yuriy Parker [facility] ELECTROLYTE PANEL 2020-10-27 08:32:00 [facility] SERUM CREATININE 2020-10-27 08:32:00 Yuriy Parker [facility] .GLOMERULAR FILTRATION 2020-10-27 08:32:00 Yuriy Parker [facility] RATE [facility] CALCIUM LEVEL TOTAL 2020-10-27 08:32:00 Yuriy Parker [facility] Results CBC 2020-10-27 08:32:00 Yanet Gurrola [facility] MANUAL DIFFERENTIAL 2020-10-27 08:32:00 Yanet Gurrola [facility] POC GLUCOSE SCREEN 2020-10-27 04:53:00 [facility] OSCILLATORY PEP 2020-10-27 01:00:08 Banerjee, [facility] o [facility] URINALYSIS MICROSCOPIC 2020-10-26 22:41:00 Mari Lovell Uni [facility] URINALYSIS WITH 2020-10-26 22:41:00 Randolph Payne [facility] MICROSCOPIC IF INDICATED MD Thompson [facility] POC GLUCOSE SCREEN 2020-10-26 22:23:00 Randolph [facility] OSCILLATORY PEP 2020-10-26 19:00:45 Banerjee, [facility] o [facility] POC GLUCOSE SCREEN 2020-10-26 16:14:00 Randolph [facility] OSCILLATORY PEP 2020-10-26 13:00:16 BanerjeeDarryl betancourt [facility] POC GLUCOSE SCREEN 2020-10-26 11:02:00 Randolph Payne [facility] PROTHROMBIN TIME 2020-10-26 09:43:00 Yuriy Parker [facility] APTT 2020-10-26 09:43:00 Yuriy Parker [facility] HEPATIC FUNCTION PANEL 2020-10-26 09:43:00 Yuriy Parker [facility] COMPREHENSIVE METABOLIC 2020-10-26 09:43:00 Yuriy Parker [facility] PANEL [facility] MAGNESIUM LEVEL 2020-10-26 09:43:00 Yuriy Parker [facility] PHOSPHORUS LEVEL 2020-10-26 09:43:00 Yuriy Parker [facility] LACTATE DEHYDROGENASE 2020-10-26 09:43:00 Yanet Gurrola [facility] FERRITIN LVL 2020-10-26 09:43:00 Yanet Gurrola [facility] COMPLETE BLOOD COUNT W/ 2020-10-26 09:43:00 Yanet Gurrola [facility] DIFFERENTIAL [facility] TYPE AND SCREEN 2020-10-26 09:43:00 Vania Pascual [facility] ABORH 2020-10-26 09:43:00 Randolph Payne [facility] ANTIBODY SCREEN 2020-10-26 09:43:00 Randolph Payne [facility] ALBUMIN LEVEL 2020-10-26 09:43:00 Yuriy Parker [facility] ALKALINE PHOSPHATASE 2020-10-26 09:43:00 [facility] ALANINE AMINOTRANSFERASE 2020-10-26 09:43:00 Yuriy Parker [facility] ASPARTATE AMINOTRANSFERASE 2020-10-26 09:43:00 Juan Parker [facility] TOTAL PROTEIN 2020-10-26 09:43:00 Yuriy Parker [facility] FRACTIONATED BILIRUBIN 2020-10-26 09:43:00 Yuriy Parker [facility] GLUCOSE LEVEL 2020-10-26 09:43:00 Yuriy Parker [facility] BLOOD UREA NITROGEN 2020-10-26 09:43:00 Yuriy Parker [facility] ELECTROLYTE PANEL 2020-10-26 09:43:00 Yuriy Parker [facility] SERUM CREATININE 2020-10-26 09:43:00 Yuriy Parker [facility] .GLOMERULAR FILTRATION 2020-10-26 09:43:[address] [facility] CALCIUM LEVEL TOTAL 2020-10-26 09:43:00 Yuriy Parker [facility] Results CBC 2020-10-26 09:43:00 Yanet Gurrola [facility] MANUAL DIFFERENTIAL 2020-10-26 09:43:00 Yanet Gurrola [facility] TMP INTERPRETATION 2020-10-26 09:43:00 Randolph Payne [facility] ANTIBODY SCREEN NEGATIVE MD [facility] CLOT EXPIRATION DATE 2020-10-26 09:43:00 Randolph Payne [facility] OSCILLATORY PEP 2020-10-26 07:00:22 [facility] POC GLUCOSE SCREEN 2020-10-26 06:29:00 Randolph Payne [facility] OSCILLATORY PEP 2020-10-26 01:00:19 [facility] POC GLUCOSE SCREEN 2020-10-25 23:13:00 Randolph Pyane [facility] VRE CULTURE 2020-10-25 21:51:00 Yuriy Parker [facility] POC GLUCOSE SCREEN 2020-10-25 17:26:00 Randolph Payne [facility] TRANSFUSE RED BLOOD CELLS 2020-10-25 17:05:00 [facility] 2020-10-25 13:00:10 Lavonne [facility] PREPARE RBC 2020-10-25 12:49:00 Randolph Payne [facility] PRBC PRODUCT READY FOR 2020-10-25 12:49:00 [facility] 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 [facility] POC GLUCOSE SCREEN 2020-10-25 11:03:00 Randolph Payne [facility] PROTHROMBIN TIME 2020-10-25 10:07:00 Yuriy Parker [facility] APTT 2020-10-25 10:07:00 Yuriy Parker [facility] HEPATIC FUNCTION PANEL 2020-10-25 10:07:00 Yuriy Parker [facility] COMPREHENSIVE METABOLIC 2020-10-25 10:07:00 Yuriy Parker [facility] PANEL [facility] MAGNESIUM LEVEL 2020-10-25 10:07:00 Yuriy Parker [facility] PHOSPHORUS LEVEL 2020-10-25 10:07:00 Yuriy Parker [facility] LACTATE DEHYDROGENASE 2020-10-25 10:07:00 Yanet Gurrola [facility] FERRITIN LVL 2020-10-25 10:07:00 Yanet Gurrola [facility] COMPLETE BLOOD COUNT W/ 2020-10-25 10:07:00 Yanet Gurrola [facility] DIFFERENTIAL [facility] ALBUMIN LEVEL 2020-10-25 10:07:00 Yuriy Parker [facility] ALKALINE PHOSPHATASE 2020-10-25 10:07:00 [facility] ALANINE AMINOTRANSFERASE 2020-10-25 10:07:00 Yuriy Parker [facility] ASPARTATE AMINOTRANSFERASE 2020-10-25 10:07:00 Juan Parker [facility] TOTAL PROTEIN 2020-10-25 10:07:00 Yuriy Parker [facility] FRACTIONATED BILIRUBIN 2020-10-25 10:07:00 Yuriy Parker [facility] GLUCOSE LEVEL 2020-10-25 10:07:00 Yuriy Parker [facility] BLOOD UREA NITROGEN 2020-10-25 10:07:00 Yuriy Parker [facility] ELECTROLYTE PANEL 2020-10-25 10:07:00 Yuriy Parker [facility] SERUM CREATININE 2020-10-25 10:07:00 Yuriy Parker [facility] .GLOMERULAR FILTRATION 2020-10-25 10:07:00 Yuriy Parker [facility] RATE [facility] CALCIUM LEVEL TOTAL 2020-10-25 10:07:00 Yuriy Parker [facility] Results CBC 2020-10-25 10:07:00 Yanet Gurrola [facility] [place] MANUAL DIFFERENTIAL 2020-10-25 10:07:00 Yanet Gurrola [facility] POC GLUCOSE SCREEN 2020-10-25 05:20:00 Randolph Payne [facility] OSCILLATORY PEP 2020-10-25 01:00:12 Lavonne [facility] EKG, 12-LEAD (PORTABLE) 2020-10-25 00:00:00 Av[facility] POC GLUCOSE SCREEN 2020-10-24 22:56:00 Randolph Payne [facility] POC GLUCOSE SCREEN 2020-10-24 17:13:00 Randolph Payne [facility] OSCILLATORY PEP 2020-10-24 13:00:10 Lavonne [facility] POC GLUCOSE SCREEN 2020-10-24 10:35:00 Randolph Payne [facility] PROTHROMBIN TIME 2020-10-24 09:49:00 Yuriy Parker [facility] APTT 2020-10-24 09:49:00 Yuriy Parker [facility] HEPATIC FUNCTION PANEL 2020-10-24 09:49:00 Yuriy Parker [facility] COMPREHENSIVE METABOLIC 2020-10-24 09:49:00 Yuriy Parker [facility] PANEL [facility] MAGNESIUM LEVEL 2020-10-24 09:49:00 Yuriy Parker [facility] PHOSPHORUS LEVEL 2020-10-24 09:49:00 Yuriy Parker [facility] LACTATE DEHYDROGENASE 2020-10-24 09:49:00 Yanet Gurrola [facility] FERRITIN LVL 2020-10-24 09:49:00 Yanet Gurrola [facility] COMPLETE BLOOD COUNT W/ 2020-10-24 09:49:00 Yanet [facility] [place] DIFFERENTIAL [facility] ALBUMIN LEVEL 2020-10-24 09:49:00 Yuriy Parker [facility] ALKALINE PHOSPHATASE 2020-10-24 09:49:00 [facility] ALANINE AMINOTRANSFERASE 2020-10-24 09:49:00 Yuriy Parker [facility] ASPARTATE AMINOTRANSFERASE 2020-10-24 09:49:00 Juan Parker [facility] TOTAL PROTEIN 2020-10-24 09:49:00 Yuriy Parker [facility] FRACTIONATED BILIRUBIN 2020-10-24 09:49:00 Yuriy Parker [facility] GLUCOSE LEVEL 2020-10-24 09:49:00 Yuriy Parker [facility] BLOOD UREA NITROGEN 2020-10-24 09:49:00 Yuriy Parker [facility] ELECTROLYTE PANEL 2020-10-24 09:49:00 Yuriy Parker [facility] SERUM CREATININE 2020-10-24 09:49:00 Yuriy Parker [facility] .GLOMERULAR FILTRATION 2020-10-24 09:49:00 Yuriy Parker [facility] RATE [facility] CALCIUM LEVEL TOTAL 2020-10-24 09:49:00 Yuriy Parker [facility] Results CBC 2020-10-24 09:49:00 Yanet Gurrola [facility] MANUAL DIFFERENTIAL 2020-10-24 09:49:00 Yanet Gurrola [facility] POC GLUCOSE SCREEN 2020-10-24 05:35:00 Randolph Payne [facility] OSCILLATORY PEP 2020-10-24 01:00:14 Lavonne [facility] POC GLUCOSE SCREEN 2020-10-23 23:05:00 Randolph Payne [facility] [place] OSCILLATORY PEP 2020-10-23 19:00:51 Lavonne [facility] US LEG VENOUS DOPPLER 2020-10-23 18:44:00 [facility]uriy Parker [facility] XR ABDOMEN 1 VW PORTABLE 2020-10-23 17:11:33 Yuriy Parker [facility] POC GLUCOSE SCREEN 2020-10-23 17:03:00 Randolph Payne [facility] OSCILLATORY PEP 2020-10-23 13:00:16 [facility] GLUCOSE SCREEN 2020-10-23 11:37:00 Randolph Payne [facility] PROTHROMBIN TIME 2020-10-23 08:59:00 Yuriy Parker [facility] APTT 2020-10-23 08:59:00 Yuriy Parker [facility] HEPATIC FUNCTION PANEL 2020-10-23 08:59:00 Yuriy Parker [facility] COMPREHENSIVE METABOLIC 2020-10-23 08:59:00 Yuriy Parker [facility] PANEL [facility] MAGNESIUM LEVEL 2020-10-23 08:59:00 Yuriy Parker [facility] PHOSPHORUS LEVEL 2020-10-23 08:59:00 Yuriy Parker [facility] LACTATE DEHYDROGENASE 2020-10-23 08:59:00 Yanet Gurrola [facility] FERRITIN LVL 2020-10-23 08:59:00 Yanet Gurrola [facility] COMPLETE BLOOD COUNT W/ 2020-10-23 08:59:00 Yanet Gurrola [facility] DIFFERENTIAL [facility] TYPE AND SCREEN 2020-10-23 08:59:00 [facility] ABORH 2020-10-23 08:59:00 [facility] o [facility] ANTIBODY SCREEN 2020-10-23 08:59:00 [facility] ALBUMIN LEVEL 2020-10-23 08:59:00 Yuriy Parker [facility] ALKALINE PHOSPHATASE 2020-10-23 08:59:00 [facility]uri[facility] ALANINE AMINOTRANSFERASE 2020-10-23 08:59:00 Yuriy Parker [facility] ASPARTATE AMINOTRANSFERASE 2020-10-23 08:59:00 Juan Parker [facility] TOTAL PROTEIN 2020-10-23 08:59:00 Yuriy Parker [facility] FRACTIONATED BILIRUBIN 2020-10-23 08:59:00 Yuriy Parker [facility] GLUCOSE LEVEL 2020-10-23 08:59:00 Yuriy Parker [facility] BLOOD UREA NITROGEN 2020-10-23 08:59:00 Yuriy Parker [facility] ELECTROLYTE PANEL 2020-10-23 08:59:00 [facility] Parker [facility] SERUM CREATININE 2020-10-23 08:59:00 Yuriy Parker [facility] .GLOMERULAR FILTRATION 2020-10-23 08:59:00 Yuriy Parker [facility] RATE [facility] CALCIUM LEVEL TOTAL 2020-10-23 08:59:00 [facility] CBC 2020-10-23 08:59:00 Yanet Gurrola [facility] MANUAL DIFFERENTIAL 2020-10-23 08:59:00 Yanet Gurrola [facility] [place] CLOT EXPIRATION DATE 2020-10-23 08:59:00 Randolph Payne [facility] TMP INTERPRETATION 2020-10-23 08:59:00 Randolph Payne [facility] ANTIBODY SCREEN NEGATIVE MD Thompson [facility] TMP CROSSMATCH 2020-10-23 08:59:00 Randolph Payne [facility] INTERPRETATION [facility] OSCILLATORY PEP 2020-10-23 07:00:20 Lavonne [facility] POC GLUCOSE SCREEN 2020-10-23 05:11:00 Randolph Payne [facility] URINALYSIS WITH 2020-10-23 04:37:00 Yuriy Parker [facility] MICROSCOPIC IF INDICATED MD Thompson [facility] URINALYSIS MICROSCOPIC 2020-10-23 04:37:00 Yuriy Parker [facility] [place] OSCILLATORY PEP 2020-10-23 01:00:13 Lavonne [facility] POC GLUCOSE SCREEN 2020-10-23 00:03:00 Randolph Payne [facility] XR ABDOMEN 1 VW PORTABLE 2020-10-22 21:53:42 Yuriy Parker [facility] [place] OSCILLATORY PEP 2020-10-22 19:00:54 Lavonne [facility] POC GLUCOSE SCREEN 2020-10-22 17:08:00 Randolph [facility] XR CHEST 1 VW PORTABLE 2020-10-22 14:41:55 Yuriy Parker [facility] CT CHEST WO CONTRAST 2020-10-22 13:09:11 Yanet Gurrola [facility] OSCILLATORY PEP 2020-10-22 13:00:17 Banerjee, [facility] o f [facility] POC GLUCOSE SCREEN 2020-10-22 11:24:00 Randolph Payneit y [facility] HC CENT/MARKOS CATH VENOUS 2020-10-22 08:28:00 Randolph Payne Uni versity [facility] COL [facility] MANUAL DIFFERENTIAL 2020-10-22 08:28:00 Randolph [facility] PROTHROMBIN TIME 2020-10-22 07:01:00 Yuriy Parker [facility] APTT 2020-10-22 07:01:00 Yuriy Parker [facility] HEPATIC FUNCTION PANEL 2020-10-22 07:01:00 Yuriy Parker [facility] COMPREHENSIVE METABOLIC 2020-10-22 07:01:00 Yuriy Parker [facility] PANEL [facility] MAGNESIUM LEVEL 2020-10-22 07:01:00 Yuriy Parker [facility] PHOSPHORUS LEVEL 2020-10-22 07:01:00 Yuriy Parker [facility] LACTATE DEHYDROGENASE 2020-10-22 07:01:00 Yanet Gurrola [facility] FERRITIN LVL 2020-10-22 07:01:00 Yanet Gurrola [facility] ALBUMIN LEVEL 2020-10-22 07:01:00 Yuriy Parker [facility] ALKALINE PHOSPHATASE 2020-10-22 07:01:00 [facility] ALANINE AMINOTRANSFERASE 2020-10-22 07:01:00 Yuriy Parker [facility] ASPARTATE AMINOTRANSFERASE 2020-10-22 07:01:00 Juan Parker [facility] TOTAL PROTEIN 2020-10-22 07:01:00 Yuriy Parker [facility] FRACTIONATED BILIRUBIN 2020-10-22 07:01:00 Yuriy Parker [facility] GLUCOSE LEVEL 2020-10-22 07:01:00 Yuriy Parker [facility] BLOOD UREA NITROGEN 2020-10-22 07:01:00 Yuriy Parker [facility] ELECTROLYTE PANEL 2020-10-22 07:01:00 Yuriy Parker [facility] SERUM CREATININE 2020-10-22 07:01:00 Yuriy Parker [facility] .GLOMERULAR FILTRATION 2020-10-22 07:01:[address] [facility] CALCIUM LEVEL TOTAL 2020-10-22 07:01:00 Yuriy Parker [facility] OSCILLATORY PEP 2020-10-22 07:00:20 [facility] OSCILLATORY PEP 2020-10-22 01:00:12 [facility] POC GLUCOSE SCREEN 2020-10-21 23:10:00 Randolph Payne [facility] OSCILLATORY PEP 2020-10-21 19:00:52 [facility] GASTROINTESTINAL MULTIPLEX 2020-10-21 18:49:00 Yanet Gurrola [facility] PANEL PATH REVIEW [facility] C DIFFICILE DNA ASSAY 2020-10-21 18:49:00 Yanet Gurrola [facility] GASTROINTESTINAL MULTIPLEX 2020-10-21 18:49:00 Yanet Gurrola [facility] PANEL [facility] C DIFFICILE DNA ASSAY PATH 2020-10-21 18:49:00 Yanet Gurrola [facility] REVIEW [facility] POC GLUCOSE SCREEN 2020-10-21 17:13:00 Randolph Payne E [facility] POC GLUCOSE SCREEN 2020-10-21 11:15:00 Randolph Payne E [facility] PROTHROMBIN TIME 2020-10-21 09:51:00 Yuriy Parker [facility] APTT 2020-10-21 09:51:00 Yuriy Parker [facility] HEPATIC FUNCTION PANEL 2020-10-21 09:51:00 Yuriy Parker [facility] COMPREHENSIVE METABOLIC 2020-10-21 09:51:00 Yuriy Parker [facility] MAGNESIUM LEVEL 2020-10-21 09:51:00 Yuriy Parker [facility] PHOSPHORUS LEVEL 2020-10-21 09:51:00 Yuriy Parker [facility] LACTATE DEHYDROGENASE 2020-10-21 09:51:00 Yanet Gurrola [facility] FERRITIN LVL 2020-10-21 09:51:00 Yanet Gurrola [facility] COMPLETE BLOOD COUNT W/ 2020-10-21 09:51:00 Yanet Gurrola [facility] DIFFERENTIAL [facility] ALBUMIN LEVEL 2020-10-21 09:51:00 Yuriy Parker [facility] ALKALINE PHOSPHATASE 2020-10-21 09:51:00 Yuriy Parker [facility] ALANINE AMINOTRANSFERASE 2020-10-21 09:51:00 Yuriy Parker [facility] ASPARTATE AMINOTRANSFERASE 2020-10-21 09:51:00 Juan Parker [facility] TOTAL PROTEIN 2020-10-21 09:51:00 Yuriy Parker [facility] FRACTIONATED BILIRUBIN 2020-10-21 09:51:00 Yuriy Parker [facility] GLUCOSE LEVEL 2020-10-21 09:51:00 Yuriy Parker [facility] BLOOD UREA NITROGEN 2020-10-21 09:51:00 Yuriy Parker [facility] ELECTROLYTE PANEL 2020-10-21 09:51:00 Yuriy Parker [facility] SERUM CREATININE 2020-10-21 09:51:00 Yuriy Parker [facility] .GLOMERULAR FILTRATION 2020-10-21 09:51:00 Yuriy Parker [facility] RATE [facility] CALCIUM LEVEL TOTAL 2020-10-21 09:51:00 Yuriy Parker [facility] Results CBC 2020-10-21 09:51:00 Yanet Gurrola [facility] MANUAL DIFFERENTIAL 2020-10-21 09:51:00 Yanet Gurrola [facility] CT ABDOMEN PELVIS WO 2020-10-21 05:16:13 Yanet Gurrola [facility] CONTRAST [facility] POC GLUCOSE SCREEN 2020-10-21 03:33:00 Randolph Payne [facility] OSCILLATORY PEP 2020-10-21 01:00:15 Lavonne [facility] o f [facility] LOWER RESPIRATORY CULTURE 2020-10-21 00:26:00 Parisa Andrews [facility] W/ GRAM STAIN [facility] POC GLUCOSE SCREEN 2020-10-20 22:16:00 Randolph Payne [facility] OSCILLATORY PEP 2020-10-20 19:00:59 Lavonne [facility] o f [facility] COVID-19 (SARS-COV-2) 2020-10-20 17:18:00 Darryl Banerjee [facility] PCR-ASYMPTOMATIC [facility] URINE CULTURE 2020-10-20 17:05:00 Yanet Gurrola [facility] XR ABDOMEN 1 VW PORTABLE 2020-10-20 15:36:17 Kevin Hernandez [facility] POC GLUCOSE SCREEN 2020-10-20 14:39:00 Randolph Payne [facility] OSCILLATORY PEP 2020-10-20 13:00:15 Lavonne [facility] o [facility] PROTHROMBIN TIME 2020-10-20 09:17:00 Yuriy Parker [facility] APTT 2020-10-20 09:17:00 Yuriy Parker [facility] HEPATIC FUNCTION PANEL 2020-10-20 09:17:00 Yuriy Parker [facility] COMPREHENSIVE METABOLIC 2020-10-20 09:17:00 Yuriy Parker [facility] PANEL [facility] MAGNESIUM LEVEL 2020-10-20 09:17:00 Yuriy Parker [facility] PHOSPHORUS LEVEL 2020-10-20 09:17:00 Yuriy Parekr [facility] LACTATE DEHYDROGENASE 2020-10-20 09:17:00 Yanet Gurrola [facility] FERRITIN LVL 2020-10-20 09:17:00 Yanet Gurrola [facility] COMPLETE BLOOD COUNT W/ 2020-10-20 09:17:00 Yanet Gurrola [facility] [place] DIFFERENTIAL [facility] TYPE AND SCREEN 2020-10-20 09:17:00 Yuriy Parker [facility] ALBUMIN LEVEL 2020-10-20 09:17:00 Yuriy Parker [facility] ALKALINE PHOSPHATASE 2020-10-20 09:17:00 [facility] ALANINE AMINOTRANSFERASE 2020-10-20 09:17:00 Yuriy Parker [facility] ASPARTATE AMINOTRANSFERASE 2020-10-20 09:17:00 Juan Parker [facility] TOTAL PROTEIN 2020-10-20 09:17:00 Yuriy Parker [facility] FRACTIONATED BILIRUBIN 2020-10-20 09:17:00 Yuriy Parker [facility] GLUCOSE LEVEL 2020-10-20 09:17:00 Yuriy Parker [facility] BLOOD UREA NITROGEN 2020-10-20 09:17:00 Yuriy Parker [facility] ELECTROLYTE PANEL 2020-10-20 09:17:00 Yuriy Parker [facility] SERUM CREATININE 2020-10-20 09:17:00 Yuriy Parker [facility] .GLOMERULAR FILTRATION 2020-10-20 09:17:00 Yuriy Parker [facility] RATE [facility] CALCIUM LEVEL TOTAL 2020-10-20 09:17:00 Yuriy Parker [facility] Results CBC 2020-10-20 09:17:00 Yanet Gurrola [facility] MANUAL DIFFERENTIAL 2020-10-20 09:17:00 Yanet Gurrola [facility] ABORH 2020-10-20 09:17:00 Yuriy Parker [facility] er Center ANTIBODY SCREEN 2020-10-20 09:17:00 Yuriy Parker [facility] [place] CLOT EXPIRATION DATE 2020-10-20 09:17:00 Yuriy Parkre [facility] TMP INTERPRETATION 2020-10-20 09:17:00 Yuriy Parker [facility] ANTIBODY SCREEN NEGATIVE MD Thompson [facility] POC GLUCOSE SCREEN 2020-10-20 09:10:00 [facility] [place] [facility]P 2020-10-20 07:00:20 Lavonne [facility] POC GLUCOSE SCREEN 2020-10-20 01:35:00 [facility]P 2020-10-20 01:00:14 [facility] ABDOMEN 1 VW PORTABLE 2020-10-19 22:38:50 Yanet Gurrola [facility] XR CHEST 1 VW 2020-10-19 22:37:03 Yanet Gurrola [facility] URINALYSIS MICROSCOPIC 2020-10-19 19:34:00 Yanet Gurrola [facility] URINALYSIS WITH 2020-10-19 19:34:00 [facility] IF INDICATED MD Thompson aldo [facility] POC GLUCOSE SCREEN 2020-10-19 19:16:00 [facility] [place] [facility] PEP 2020-10-19 19:00:55 Lavonne [facility] TRANSFUSE RED BLOOD CELLS 2020-10-19 18:35:00 Darryl Banerjee Un [facility] of [facility] FERRITIN LVL 2020-10-19 16:25:00 Yanet Gurrola [facility] LACTATE DEHYDROGENASE 2020-10-19 16:25:00 [facility] OSCILLATORY PEP 2020-10-19 13:00:17 [facility] POC GLUCOSE SCREEN 2020-10-19 12:23:00 Darryl Banerjee [facility] PREPARE RBC 2020-10-19 10:10:00 Lavonne [facility] o f [facility] PRBC PRODUCT READY FOR 2020-10-19 10:10:00 [facility] 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 [facility] BLOOD UREA NITROGEN 2020-10-19 09:25:00 Yuriy Parker [facility] ELECTROLYTE PANEL 2020-10-19 09:25:00 Yuriy Parker [facility] SERUM CREATININE 2020-10-19 09:25:00 Yuriy Parker [facility] .GLOMERULAR FILTRATION 2020-10-19 09:25:[address] [facility] CALCIUM LEVEL TOTAL 2020-10-19 09:25:00 Yuriy Parker [facility] PROTHROMBIN TIME 2020-10-19 09:25:00 Yuriy Parker [facility] APTT 2020-10-19 09:25:00 Yuriy Parker [facility] HEPATIC FUNCTION PANEL 2020-10-19 09:25:00 Yuriy Parker [facility] COMPLETE BLOOD COUNT W/ 2020-10-19 09:25:00 Yuriy Parker [facility] INDICES [facility] COMPREHENSIVE METABOLIC 2020-10-19 09:25:00 Yuriy Parker [facility] MAGNESIUM LEVEL 2020-10-19 09:25:00 Yuriy Parker [facility] [place] PHOSPHORUS LEVEL 2020-10-19 09:25:00 Yuriy Parker [facility] [place] LACTIC ACID, VENOUS 2020-10-19 09:25:00 Yuriy Parker [facility] [place] ALBUMIN LEVEL 2020-10-19 09:25:00 Yuriy Parker [facility] ALKALINE PHOSPHATASE 2020-10-19 09:25:00 Yuriy Parker Un iversity [facility] ALANINE AMINOTRANSFERASE 2020-10-19 09:25:00 Yuriy Parker [facility] ASPARTATE AMINOTRANSFERASE 2020-10-19 09:25:00 Juan Parker [facility] TOTAL PROTEIN 2020-10-19 09:25:00 Yuriy Parker [facility] [place] FRACTIONATED BILIRUBIN 2020-10-19 09:25:00 Yuriy Parker [facility] GLUCOSE LEVEL 2020-10-19 09:25:00 Yuriy Parker [facility] er Center POC GLUCOSE SCREEN 2020-10-19 06:20:00 Lavonne [facility] [place] OSCILLATORY PEP 2020-10-19 01:00:15 Lavonne [facility] o [facility] er Center POC GLUCOSE SCREEN 2020-10-19 00:48:00 Banerjee [facility] [place] VRE CULTURE 2020-10-18 21:11:00 Yuriy Parker [facility] POC GLUCOSE SCREEN 2020-10-18 17:19:00 Lavonne [facility] [place] OSCILLATORY PEP 2020-10-18 13:00:10 Lavonne [facility] o [facility] er Center POC GLUCOSE SCREEN 2020-10-18 09:55:00 [facility] PROTHROMBIN TIME 2020-10-18 09:09:00 Yuriy Parker [facility] APTT 2020-10-18 09:09:00 Yuriy Parker [facility] HEPATIC FUNCTION PANEL 2020-10-18 09:09:00 Yuriy Parker [facility] COMPLETE BLOOD COUNT W/ 2020-10-18 09:09:00 Yuriy Parker [facility] INDICES [facility] COMPREHENSIVE METABOLIC 2020-10-18 09:09:00 Yuriy Parker [facility] MAGNESIUM LEVEL 2020-10-18 09:09:00 Yuriy Parker [facility] PHOSPHORUS LEVEL 2020-10-18 09:09:00 Yuriy Parker [facility] LACTIC ACID, VENOUS 2020-10-18 09:09:00 [facility]uri[facility] ALBUMIN LEVEL 2020-10-18 09:09:00 Yuriy Parker [facility] ALKALINE PHOSPHATASE 2020-10-18 09:09:00 [facility]uri[facility] ALANINE AMINOTRANSFERASE 2020-10-18 09:09:00 Yuriy Parker [facility] ASPARTATE AMINOTRANSFERASE 2020-10-18 09:09:00 Juan Parker E [facility] TOTAL PROTEIN 2020-10-18 09:09:00 Yuriy Parker [facility] FRACTIONATED BILIRUBIN 2020-10-18 09:09:00 Yuriy Parker [facility] GLUCOSE LEVEL 2020-10-18 09:09:00 Yuriy Parker [facility] BLOOD UREA NITROGEN 2020-10-18 09:09:00 Yuriy Parker Uni [facility] ELECTROLYTE PANEL 2020-10-18 09:09:00 [facility]y Parker [facility] SERUM CREATININE 2020-10-18 09:09:00 Yuriy Parker [facility] .GLOMERULAR FILTRATION 2020-10-18 09:09:00 Yuriy Parker [facility] RATE [facility] CALCIUM LEVEL TOTAL 2020-10-18 09:09:00 Yuriy Parker [facility] OSCILLATORY PEP 2020-10-18 07:00:21 Darryl Banerjee [facility] POC GLUCOSE SCREEN 2020-10-18 01:41:00 Darryl Banerjee [facility] OSCILLATORY PEP 2020-10-18 01:00:16 Darryl Banerjee [facility] TRANSFUSE RED BLOOD CELLS 2020-10-17 21:05:00 Darryl [facility] POC GLUCOSE SCREEN 2020-10-17 19:47:00 Darryl Banerjee [facility] OSCILLATORY PEP 2020-10-17 19:00:47 Darryl Banerjee [facility] HEMODIALYSIS 2020-10-17 17:39:22 Shraddha Nunn [facility] OSCILLATORY PEP 2020-10-17 16:31:51 [facility]PARE RBC 2020-10-17 13:21:00 [facility] PRBC PRODUCT READY FOR 2020-10-17 13:21:00 Darryl Banerjee [facility] 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 [facility] POC GLUCOSE SCREEN 2020-10-17 12:14:00 Darryl Banerjee [facility] HEPATITIS B SURFACE 2020-10-17 09:16:00 [facility] ANTIGEN, SERUM [facility] PROTHROMBIN TIME 2020-10-17 09:16:00 Yuriy Parker [facility] APTT 2020-10-17 09:16:00 Yuriy Parker [facility] HEPATIC FUNCTION PANEL 2020-10-17 09:16:00 Yuriy Parker [facility] COMPLETE BLOOD COUNT W/ 2020-10-17 09:16:00 Yuriy Parker [facility] INDICES [facility] COMPREHENSIVE METABOLIC 2020-10-17 09:16:00 Yuriy Parker [facility] PANEL [facility] MAGNESIUM LEVEL 2020-10-17 09:16:00 Yuriy Parker [facility] PHOSPHORUS LEVEL 2020-10-17 09:16:00 Yuriy Parker [facility] LACTIC ACID, VENOUS 2020-10-17 09:16:00 Yuriy Parker Uni vers[facility] TYPE AND SCREEN 2020-10-17 09:16:00 Yuriy Parker [facility] ALBUMIN LEVEL 2020-10-17 09:16:00 Yuriy Parker [facility] ALKALINE PHOSPHATASE 2020-10-17 09:16:00 Yuriy Parker Un iversity [facility] ALANINE AMINOTRANSFERASE 2020-10-17 09:16:00 Yuriy Parker [facility] ASPARTATE AMINOTRANSFERASE 2020-10-17 09:16:00 Juan Parker [facility] TOTAL PROTEIN 2020-10-17 09:16:00 Yuriy Parker [facility] FRACTIONATED BILIRUBIN 2020-10-17 09:16:00 Yuriy Parker [facility] GLUCOSE LEVEL 2020-10-17 09:16:00 Yuriy Parker [facility] BLOOD UREA NITROGEN 2020-10-17 09:16:00 Yuriy Parker Uni [facility] ELECTROLYTE PANEL 2020-10-17 09:16:00 Yuriy Parker [facility] SERUM CREATININE 2020-10-17 09:16:00 Yuriy Parker [facility] .GLOMERULAR FILTRATION 2020-10-17 09:16:00 Yuriy Parker [facility] RATE [facility] CALCIUM LEVEL TOTAL 2020-10-17 09:16:00 Yuriy Parker [facility] ABORH 2020-10-17 09:16:00 Yuriy Parker [facility] ANTIBODY SCREEN 2020-10-17 09:16:00 Yuriy Parker [facility] HEPATITIS B SURFACE AG 2020-10-17 09:16:00 [facility] W/CONFIRM [facility] TMP INTERPRETATION 2020-10-17 09:16:00 Yuriy Parker [facility] ANTIBODY SCREEN NEGATIVE MD Thompson [facility] CLOT EXPIRATION DATE 2020-10-17 09:16:00 Yuriy [facility] TMP CROSSMATCH 2020-10-17 09:16:00 Yuriy Parker [facility] INTERPRETATION [facility] POC GLUCOSE SCREEN 2020-10-17 05:59:00 Darryl Banerjee [facility] er Center POC GLUCOSE SCREEN 2020-10-16 23:06:00 Darryl Banerjee [facility] er Center POC GLUCOSE SCREEN 2020-10-16 18:39:00 Darryl Banerjee [facility] POC GLUCOSE SCREEN 2020-10-16 11:19:00 Darryl Banerjee [facility] PROTHROMBIN TIME 2020-10-16 09:10:00 Yuriy Parker [facility] APTT 2020-10-16 09:10:00 Yuriy Parker [facility] HEPATIC FUNCTION PANEL 2020-10-16 09:10:00 Yuriy Parker [facility] COMPLETE BLOOD COUNT W/ 2020-10-16 09:10:00 Yuriy Parker [facility] COMPREHENSIVE METABOLIC 2020-10-16 09:10:00 Yuriy Parker [facility] MAGNESIUM LEVEL 2020-10-16 09:10:00 Yuriy Parker [facility] PHOSPHORUS LEVEL 2020-10-16 09:10:00 Yuriy Parker [facility] LACTIC ACID, VENOUS 2020-10-16 09:10:00 Yuriy [facility] ALBUMIN LEVEL 2020-10-16 09:10:00 Yuriy Parker [facility] ALKALINE PHOSPHATASE 2020-10-16 09:10:00 Yuriy Parker Un [facility] ALANINE AMINOTRANSFERASE 2020-10-16 09:10:00 Yuriy Parker [facility] ASPARTATE AMINOTRANSFERASE 2020-10-16 09:10:00 Juan Parker [facility] TOTAL PROTEIN 2020-10-16 09:10:00 Yuriy Parker [facility] FRACTIONATED BILIRUBIN 2020-10-16 09:10:00 Yuriy Parker [facility] GLUCOSE LEVEL 2020-10-16 09:10:00 Yuriy Parker [facility] BLOOD UREA NITROGEN 2020-10-16 09:10:00 Yuriy Parker [facility] ELECTROLYTE PANEL 2020-10-16 09:10:00 Yuriy Parker [facility] SERUM CREATININE 2020-10-16 09:10:00 Yuriy Parker [facility] .GLOMERULAR FILTRATION 2020-10-16 09:10:00 Yuriy Parker [facility] RATE [facility] CALCIUM LEVEL TOTAL 2020-10-16 09:10:00 Yuriy Parker [facility] POC GLUCOSE SCREEN 2020-10-16 05:12:00 Lavonne [facility] POC GLUCOSE SCREEN 2020-10-15 23:20:00 Banerjee, [facility] POC GLUCOSE SCREEN 2020-10-15 17:52:00 Banerjee, [facility] URINALYSIS MICROSCOPIC 2020-10-15 16:58:00 Shraddha Nunn [facility] URINALYSIS WITH 2020-10-15 16:58:00 [facility]IC IF INDICATED MD Thompson aldo [facility] XR CHEST 1 VW PORTABLE 2020-10-15 15:49:03 Mari Lovell [facility] POC GLUCOSE SCREEN 2020-10-15 11:26:00 [facility] B SURFACE 2020-10-15 09:44:00 Shraddha Nunn [facility] ANTIGEN, SERUM [facility] PROTHROMBIN TIME 2020-10-15 09:44:00 Yuriy Parker [facility] APTT 2020-10-15 09:44:00 Yuriy Parker [facility] HEPATIC FUNCTION PANEL 2020-10-15 09:44:00 Yuriy Parker [facility] COMPLETE BLOOD COUNT W/ 2020-10-15 09:44:00 Yuriy Parker [facility] COMPREHENSIVE METABOLIC 2020-10-15 09:44:00 Yuriy Parker [facility] MAGNESIUM LEVEL 2020-10-15 09:44:00 Yuriy Parker [facility] PHOSPHORUS LEVEL 2020-10-15 09:44:00 Yuriy Parker [facility] LACTIC ACID, VENOUS 2020-10-15 09:44:00 Yuriy Parker [facility] ALBUMIN LEVEL 2020-10-15 09:44:00 Yuriy Parker [facility] ALKALINE PHOSPHATASE 2020-10-15 09:44:00 [facility]uri[facility] ALANINE AMINOTRANSFERASE 2020-10-15 09:44:00 Yuriy Parker [facility] ASPARTATE AMINOTRANSFERASE 2020-10-15 09:44:00 Juan Parker [facility] TOTAL PROTEIN 2020-10-15 09:44:00 Yuriy Parker [facility] FRACTIONATED BILIRUBIN 2020-10-15 09:44:00 Yuriy Parker [facility] GLUCOSE LEVEL 2020-10-15 09:44:00 Yuriy Parker [facility] BLOOD UREA NITROGEN 2020-10-15 09:44:00 Yuriy Parker [facility] ELECTROLYTE PANEL 2020-10-15 09:44:00 [facility] SERUM CREATININE 2020-10-15 09:44:00 Yuriy Parker [facility] .GLOMERULAR FILTRATION 2020-10-15 09:44:00 Yuriy Parker [facility] RATE [facility] CALCIUM LEVEL TOTAL 2020-10-15 09:44:00 Yuriy Parker [facility]ITIS B SURFACE AG 2020-10-15 09:44:00 [facility] W/[facility] POC GLUCOSE SCREEN 2020-10-15 04:42:00 Darryl Banerjee [facility] EKG, 12-LEAD (PORTABLE) 2020-10-15 00:00:00 [facility] GLUCOSE SCREEN 2020-10-14 23:03:00 [facility] TRAN[facility] RED BLOOD CELLS 2020-10-14 20:15:00 Adolfo Portillo [facility] POC GLUCOSE SCREEN 2020-10-14 11:48:00 Darryl Banerjee [facility] POC GLUCOSE SCREEN 2020-10-14 11:28:00 [facility] PREPARE RBC 2020-10-14 10:07:00 Adolfo Portillo [facility] PRBC PRODUCT READY FOR 2020-10-14 10:07:00 Darryl Banerjee [facility] 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 [facility] PROTHROMBIN TIME 2020-10-14 09:11:00 Yuriy Parker [facility] APTT 2020-10-14 09:11:00 Yuriy Parker [facility] HEPATIC FUNCTION PANEL 2020-10-14 09:11:00 Yuriy Parker [facility] COMPLETE BLOOD COUNT W/ 2020-10-14 09:11:00 Yuriy Parker [facility] COMPREHENSIVE METABOLIC 2020-10-14 09:11:00 Yuriy Parker [facility] MAGNESIUM LEVEL 2020-10-14 09:11:00 Yuriy Parker [facility] PHOSPHORUS LEVEL 2020-10-14 09:11:00 Yuriy Parker [facility] LACTIC ACID, VENOUS 2020-10-14 09:11:00 Yuriy Parker [facility] TMP INTERPRETATION 2020-10-14 09:11:00 Yuriy Parker [facility] ANTIBODY SCREEN NEGATIVE MD Thompson [facility] ALBUMIN LEVEL 2020-10-14 09:11:00 Yuriy Parker [facility] ALKALINE PHOSPHATASE 2020-10-14 09:11:00 Yuriy [facility] ALANINE AMINOTRANSFERASE 2020-10-14 09:11:00 Yuriy Parker [facility] ASPARTATE AMINOTRANSFERASE 2020-10-14 09:11:00 Juan Parker [facility] TOTAL PROTEIN 2020-10-14 09:11:00 Yuriy Parker [facility] FRACTIONATED BILIRUBIN 2020-10-14 09:11:00 Yuriy Parker [facility] GLUCOSE LEVEL 2020-10-14 09:11:00 Yuriy Parker [facility] BLOOD UREA NITROGEN 2020-10-14 09:11:00 Yuriy Parker [facility] ELECTROLYTE PANEL 2020-10-14 09:11:00 Yuriy Parker [facility] SERUM CREATININE 2020-10-14 09:11:00 Yuriy Parker [facility] .GLOMERULAR FILTRATION 2020-10-14 09:11:00 Yuriy Parker [facility] RATE [facility] CALCIUM LEVEL TOTAL 2020-10-14 09:11:00 Yuriy Parker Uni versity [facility] ABORH 2020-10-14 09:11:00 Yuriy Parker [facility] ANTIBODY SCREEN 2020-10-14 09:11:00 Yuriy Parker [facility] CLOT EXPIRATION DATE 2020-10-14 09:11:00 Yuriy Parker Un i[facility]ity [facility] POC GLUCOSE SCREEN 2020-10-14 05:30:00 Darryl Banerjee [facility] POC GLUCOSE SCREEN 2020-10-13 22:56:00 Darryl Banerjee [facility] POC GLUCOSE SCREEN 2020-10-13 17:18:00 Darryl Banerjee [facility] COVID-19 (SARS-COV-2) 2020-10-13 16:11:00 Darryl Banerjee [facility] PCR-ASYMPTOMATIC [facility] URINE CULTURE 2020-10-13 13:54:00 Edouard [facility] o f [facility] POC GLUCOSE SCREEN 2020-10-13 11:13:00 Darryl Banerjee [facility] PROTHROMBIN TIME 2020-10-13 07:21:00 Yuriy Parker [facility] APTT 2020-10-13 07:21:00 Yuriy Parker [facility] HEPATIC FUNCTION PANEL 2020-10-13 07:21:00 Yuriy Parker [facility] COMPLETE BLOOD COUNT W/ 2020-10-13 07:21:00 Yuriy Parker [facility] COMPREHENSIVE METABOLIC 2020-10-13 07:21:00 Yuriy Parker [facility] MAGNESIUM LEVEL 2020-10-13 07:21:00 Yuriy Parker [facility] PHOSPHORUS LEVEL 2020-10-13 07:21:00 Yuriy Parker [facility] LACTIC ACID, VENOUS 2020-10-13 07:21:00 Yuriy Parker [facility] ALBUMIN LEVEL 2020-10-13 07:21:00 Chano Willams [place] o f [facility] ALKALINE PHOSPHATASE 2020-10-13 07:21:00 Chano Willams [facility] ALANINE AMINOTRANSFERASE 2020-10-13 07:21:00 Chano Willams [facility] ASPARTATE AMINOTRANSFERASE 2020-10-13 07:21:00 Chano Willams [facility] TOTAL PROTEIN 2020-10-13 07:21:00 Chano Willams [place] o f [facility] FRACTIONATED BILIRUBIN 2020-10-13 07:21:00 Chano Willams [facility] GLUCOSE LEVEL 2020-10-13 07:21:00 [facility] BLOOD UREA NITROGEN 2020-10-13 07:21:00 Robyn Priest [facility] ELECTROLYTE PANEL 2020-10-13 07:21:00 [facility] SER[facility] CREATININE 2020-10-13 07:21:[address] [facility] .GLOMERULAR FILTRATION 2020-10-13 07:21:00 Robyn Priest [facility] RATE [facility] CALCIUM LEVEL TOTAL 2020-10-13 07:21:00 Robyn Priest [facility] XR CHEST 1 VW PORTABLE 2020-10-13 07:17:52 Yuriy Parker [facility] POC GLUCOSE SCREEN 2020-10-13 04:57:00 Darryl Banerjee [facility] y [facility] XR ABDOMEN 1 VW PORTABLE 2020-10-13 03:29:00 Kevin Hernandez [facility] POC GLUCOSE SCREEN 2020-10-12 22:53:00 Alba Puga [facility] POC GLUCOSE SCREEN 2020-10-12 16:45:00 Alba Puga [facility] LACTIC ACID, VENOUS 2020-10-12 13:24:00 Chano Willams [facility] [facility] POC GLUCOSE SCREEN 2020-10-12 10:59:00 Alba Puga [facility] ARTERIAL BLOOD GAS 2020-10-12 09:48:00 Kevin Hernandez [facility] XR CHEST 1 VW PORTABLE 2020-10-12 06:38:14 Yuriy Parker [facility] LACTIC ACID, VENOUS 2020-10-12 06:28:00 Chano Willams [facility] PROTHROMBIN TIME 2020-10-12 06:28:00 Yuriy Parker [facility] APTT 2020-10-12 06:28:00 Yuriy Parker [facility] HEPATIC FUNCTION PANEL 2020-10-12 06:28:00 Yuriy Parker [facility] COMPLETE BLOOD COUNT W/ 2020-10-12 06:28:00 Yuriy Parker [facility] INDICES [facility] VANCOMYCIN LEVEL RANDOM 2020-10-12 06:28:00 Gerardo Krishnan [facility] COMPREHENSIVE METABOLIC 2020-10-12 06:28:00 Yuriy Parker [facility] PANEL [facility] MAGNESIUM LEVEL 2020-10-12 06:28:00 Yuriy Parker [facility] PHOSPHORUS LEVEL 2020-10-12 06:28:00 [facility]uriy Parker [facility] ALBUMIN LEVEL 2020-10-12 06:28:00 Chano Willams [place] [facility] ALKALINE PHOSPHATASE 2020-10-12 06:28:00 Chano Willams [facility] ALANINE AMINOTRANSFERASE 2020-10-12 06:28:00 Chano Willams Uni [facility] ASPARTATE AMINOTRANSFERASE 2020-10-12 06:28:00 Chano Willams U [facility] TOTAL PROTEIN 2020-10-12 06:28:00 Chano Willams o [facility] FRACTIONATED BILIRUBIN 2020-10-12 06:28:00 Chano Willams [facility] GLUCOSE LEVEL 2020-10-12 06:28:00 [facility] BLOOD UREA NITROGEN 2020-10-12 06:28:00 Robyn Priest [facility] ELECTROLYTE PANEL 2020-10-12 06:28:00 [facility] SERUM CREATININE 2020-10-12 06:28:[address] [facility] .GLOMERULAR FILTRATION 2020-10-12 06:28:00 Robyn Priest [facility] CALCIUM LEVEL TOTAL 2020-10-12 06:28:00 Robyn Priets [facility] POC GLUCOSE SCREEN 2020-10-12 05:23:00 [facility] TRANSFUSE RED BLOOD CELLS 2020-10-12 01:40:00 Kiara Patel [facility] LACTIC ACID, VENOUS 2020-10-11 23:06:00 Imer, Chano [facility] POC GLUCOSE SCREEN 2020-10-11 22:21:00 Alba Puga [facility] PREPARE RBC 2020-10-11 20:51:00 Kiara Patel [facility] PRBC PRODUCT READY FOR 2020-10-11 20:51:00 Alba Puga [facility] 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 [facility] COMPLETE BLOOD COUNT W/ 2020-10-11 20:28:00 Kiara Patel U [facility] DIFFERENTIAL [facility] URINALYSIS WITH 2020-10-11 20:28:00 [facility]ard [facility] [place] MICROSCOPIC IF INDICATED MD [facility] NT PRO BNP 2020-10-11 20:28:00 Alba Puga [facility] Results CBC 2020-10-11 20:28:00 Kiara Patel [facility] MANUAL DIFFERENTIAL 2020-10-11 20:28:00 Kiara Patel [facility] URINALYSIS MICROSCOPIC 2020-10-11 20:28:00 Timothy Torres [facility] POC GLUCOSE SCREEN 2020-10-11 16:45:00 Alba Puga [facility] LACTIC ACID, VENOUS 2020-10-11 14:11:00 Chano Willams [facility] TYPE AND SCREEN 2020-10-11 11:31:00 Yuriy Parker [facility] ity [facility] ABORH 2020-10-11 11:31:00 Karyn Andre [facility] ANTIBODY SCREEN 2020-10-11 11:31:00 Karyn Andre [facility] CLOT EXPIRATION DATE 2020-10-11 11:31:00 Karyn Andre Uni versity [facility] TMP INTERPRETATION 2020-10-11 11:31:00 Karyn Andre [facility] ANTIBODY SCREEN NEGATIVE [facility] TMP CROSSMATCH 2020-10-11 11:31:00 Karyn Andre [facility] INTERPRETATION [facility] POC GLUCOSE SCREEN 2020-10-11 10:30:00 Alba Puga [facility] XR CHEST 1 VW PORTABLE 2020-10-11 06:30:57 Yuriy Parker [facility] LACTIC ACID, VENOUS 2020-10-11 06:29:00 Chano Willams [facility] PROTHROMBIN TIME 2020-10-11 06:29:00 Yuriy Parker [facility] APTT 2020-10-11 06:29:00 Yuriy Parker [facility] HEPATIC FUNCTION PANEL 2020-10-11 06:29:00 Yuriy Parker [facility] COMPLETE BLOOD COUNT W/ 2020-10-11 06:29:00 Yuriy Parker [facility] INDICES [facility] COMPREHENSIVE METABOLIC 2020-10-11 06:29:00 Yuriy Parker [facility] MAGNESIUM LEVEL 2020-10-11 06:29:00 Yuriy Parker [facility] PHOSPHORUS LEVEL 2020-10-11 06:29:00 Yuriy Parker [facility] ALBUMIN LEVEL 2020-10-11 06:29:00 Chano Willams [place] [facility] ALKALINE PHOSPHATASE 2020-10-11 06:29:00 Chano Willams [facility] ALANINE AMINOTRANSFERASE 2020-10-11 06:29:00 Chano Willams Uni [facility] ASPARTATE AMINOTRANSFERASE 2020-10-11 06:29:00 Chano Willams [facility] TOTAL PROTEIN 2020-10-11 06:29:00 Chano Willams [place] [facility] FRACTIONATED BILIRUBIN 2020-10-11 06:29:00 Chano Willams [facility] GLUCOSE LEVEL 2020-10-11 06:29:00 [facility] BLOOD UREA NITROGEN 2020-10-11 06:29:00 Robyn Priest [facility] ELECTROLYTE PANEL 2020-10-11 06:29:00 Robyn Priest [facility] SERUM CREATININE 2020-10-11 06:29:00 [facility] .GLOMERULAR FILTRATION 2020-10-11 06:29:00 Robyn Priest [facility] CALCIUM LEVEL TOTAL 2020-10-11 06:29:00 Robyn Priest [facility] ARTERIAL BLOOD GAS 2020-10-11 06:29:00 Bailey Marshall [facility] POC GLUCOSE SCREEN 2020-10-11 04:48:00 Alba [facility]uga [facility] POC GLUCOSE SCREEN 2020-10-10 23:30:00 Alba Puga [facility] XR CHEST 1 VW POST IMPLANT 2020-10-10 20:06:00 Alba Puga [facility] POC GLUCOSE SCREEN 2020-10-10 16:51:00 Alba Puga [facility] LACTIC ACID, VENOUS 2020-10-10 15:01[facility]00 [facility] 2020-10-10 10:59:00 Alba Puga [facility] XR CHEST 1 VW PORTABLE 2020-10-10 06:41:13 Yuriy Parker [facility] GENERAL LABORATORY ADD ON 2020-10-10 06:37:00 Robyn Priest [facility] PROTHROMBIN TIME 2020-10-10 06:31:00 Yuriy Parker [facility] APTT 2020-10-10 06:31:00 Yuriy Parker [facility] HEPATIC FUNCTION PANEL 2020-10-10 06:31:00 Yuriy Parker [facility] COMPLETE BLOOD COUNT W/ 2020-10-10 06:31:00 Yuriy Parker [facility] ALBUMIN LEVEL 2020-10-10 06:31:00 Chano Willams [facility] ALKALINE PHOSPHATASE 2020-10-10 06:31:00 Chano Willams [facility] ALANINE AMINOTRANSFERASE 2020-10-10 06:31:00 Chano Willams [facility] ASPARTATE AMINOTRANSFERASE 2020-10-10 06:31:00 Chano Willams [facility] TOTAL PROTEIN 2020-10-10 06:31:00 Chano Willams o [facility] FRACTIONATED BILIRUBIN 2020-10-10 06:31:00 Chano Willams [facility] PHOSPHORUS LEVEL 2020-10-10 06:31:00 Chano Willams [facility] MAGNESIUM LEVEL 2020-10-10 06:31:00 Chano Willams o [facility] GLUCOSE LEVEL 2020-10-10 06:31:00 Chano Willams [facility] BLOOD UREA NITROGEN 2020-10-10 06:31:00 [facility] ELECTROL[facility]TE [facility]EL 2020-10-10 06:31:00 Chano Willams [facility] SERUM CREATININE 2020-10-10 06:31:00 Chano Willams [facility] .GLOMERULAR FILTRATION 2020-10-10 06:31:00 Chano Willams [facility] RATE [facility] CALCIUM LEVEL TOTAL 2020-10-10 06:31:00 Chano Willams [facility] LACTIC ACID, VENOUS 2020-10-10 06:29:00 Chano Willams [facility] POC GLUCOSE SCREEN 2020-10-10 04:47:00 Alba Puga [facility] POC GLUCOSE SCREEN 2020-10-09 22:49:00 Alba Puga [facility] POC GLUCOSE SCREEN 2020-10-09 16:12:00 Alba Puga [facility] XR ABDOMEN 1 VW PORTABLE 2020-10-09 14:33:45 Kiara Ptael [facility] LACTIC ACID, VENOUS 2020-10-09 13:38:00 Chano Willams [facility] BASIC METABOLIC PANEL, 2020-10-09 13:38:00 Beau Reina [facility] CALCIUM IONIZED [facility] APTT 2020-10-09 13:38:00 Beau Reina [facility] PROTHROMBIN TIME 2020-10-09 13:38:00 Beau Reina [facility] MAGNESIUM LEVEL 2020-10-09 13:38:00 Beau Reina [facility] PHOSPHORUS LEVEL 2020-10-09 13:38:00 Beau Reina [facility] GLUCOSE LEVEL 2020-10-09 13:38:00 Beau Reina [facility] BLOOD UREA NITROGEN 2020-10-09 13:38:00 Beau Reina [facility] ELECTROLYTE PANEL 2020-10-09 13:38:00 Beau Reina [facility] SERUM CREATININE 2020-10-09 13:38:00 Beau Reina [facility] .GLOMERULAR FILTRATION 2020-10-09 13:38:00 Beau Reina [facility] RATE [facility] CALCIUM IONIZED, VENOUS 2020-10-09 13:38:00 Beau Reina [facility] POC GLUCOSE SCREEN 2020-10-09 10:28:00 Alba Puga [facility] TRANSFUSE RED BLOOD CELLS 2020-10-09 10:15:00 Robyn Priest [facility] PREPARE RBC 2020-10-09 08:56:00 Robyn Priest [facility] PRBC PRODUCT READY FOR 2020-10-09 08:56:00 Alba Puga [facility] 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 [facility] XR CHEST 1 VW PORTABLE 2020-10-09 08:24:00 Yuriy Parker [facility] LACTIC ACID, VENOUS 2020-10-09 07:36:00 Chano Willams [facility] HEPATITIS B SURFACE 2020-10-09 07:36:00 Shraddha Nunn [facility] ANTIGEN, SERUM [facility] PROTHROMBIN TIME 2020-10-09 07:36:00 Yuriy Parker [facility] APTT 2020-10-09 07:36:00 Yuriy Parker [facility] HEPATIC FUNCTION PANEL 2020-10-09 07:36:00 Yuriy Parker [facility] COMPLETE BLOOD COUNT W/ 2020-10-09 07:36:00 Yuriy Parker [facility] VANCOMYCIN LEVEL RANDOM 2020-10-09 07:36:00 Sudheer Wilson [facility] ALBUMIN LEVEL 2020-10-09 07:36:00 Chano Willams [place] [facility] ALKALINE PHOSPHATASE 2020-10-09 07:36:00 Chano Willams [facility] ALANINE AMINOTRANSFERASE 2020-10-09 07:36:00 [facility] ASPARTATE AMINOTRANSFERASE 2020-10-09 07:36:00 Chano Willams [facility] TOTAL PROTEIN 2020-10-09 07:36:00 Chano Willams o f [facility] FRACTIONATED BILIRUBIN 2020-10-09 07:36:00 Chano Willams [facility] HEPATITIS B SURFACE AG 2020-10-09 07:36:00 [facility] POC GLUCOSE SCREEN 2020-10-09 04:28:00 [facility] POC GLUCOSE SCREEN 2020 22:30:00 Alba Puga [facility] LACTIC ACID, VENOUS 2020 20:18:00 Chano Willams [facility] MRSA SCREENING CULTURE 2020 17:27:00 Ellis Cooper [facility] POC GLUCOSE SCREEN 2020 16:26:00 [facility] BLOODCULTURE 2020 15:21:00 Beau Reina o f [facility] URINE CULTURE 2020 15:21:00 Beau Reina o f [facility] BLOODCULTURE 2020 15:21:00 Beau Reina o [facility] Center TYPE AND SCREEN 2020 13:19:00 Yuriy Parker [facility] LACTIC ACID, VENOUS 2020 13:19:00 Chano Willams [facility] BASIC METABOLIC PANEL, 2020 13:19:00 Shraddha Nunn [facility] CALCIUM IONIZED [facility] CALCIUM LEVEL TOTAL 2020 13:19:00 Edouard, [facility] PHOSPHORUS LEVEL 2020 13:19:00 Edouard, [facility] MAGNESIUM LEVEL 2020 13:19:00 Edouard, [facility] o f [facility] ARTERIAL BLOOD GAS 2020 13:19:00 Edouard, Shraddha [facility] y [facility] ABORH 2020 13:19:00 Karyn Andre [facility] ANTIBODY SCREEN 2020 13:19:00 Karyn Andre [facility] CALCIUM IONIZED, VENOUS 2020 13:19:00 Rigo Orantes [facility] GLUCOSE LEVEL 2020 13:19:00 Rigo Orantes [facility] BLOOD UREA NITROGEN 2020 13:19:00 Rigo Orantes [facility] ELECTROLYTE PANEL 2020 13:19:00 Rigo Orantes [facility] SERUM CREATININE 2020 13:19:00 Rigo Orantes [facility] .GLOMERULAR FILTRATION 2020 13:19:00 Rigo Orantes [facility] RATE [facility] COMPLETE BLOOD COUNT W/ 2020 13:19:00 Beau Reina [facility] DIFFERENTIAL [facility] Results CBC 2020 13:19:00 Beau Reina [place] [facility] MANUAL DIFFERENTIAL 2020 13:19:00 Beau Reina [facility] TMP INTERPRETATION 2020 13:19:00 Karyn Andre [facility] ANTIBODY SCREEN NEGATIVE [facility] CLOT EXPIRATION DATE 2020 13:19:00 Karyn Andre [facility] TMP CROSSMATCH 2020 13:19:00 Karyn Andre [facility] INTERPRETATION [facility] POC GLUCOSE SCREEN 2020 11:00:00 Alba Puga [facility] XR CHEST 1 VW PORTABLE 2020 09:07:05 Yuriy Parker [facility] POC GLUCOSE SCREEN 2020 07:33:00 Alba Puga [facility] LACTIC ACID, VENOUS 2020 05:52:00 Chano Willams [facility] BASIC METABOLIC PANEL, 2020 05:52:00 Sh[facility]addha [facility] CALCIUM IONIZED [facility] CALCIUM LEVEL TOTAL 2020 05:52:00 Edouard Shraddha [facility] PHOSPHORUS LEVEL 2020 05:52:00 Edouard [facility] MAGNESIUM LEVEL 2020 05:52:00 Edouard [facility] o f [facility] ARTERIAL BLOOD GAS 2020 05:52:00 Edouard Shraddha [facility] PROTHROMBIN TIME 2020 05:52:00 Yuriy Parker [facility] APTT 2020 05:52:00 Yuriy Parker [facility] HEPATIC FUNCTION PANEL 2020 05:52:00 Yuriy Parker [facility] COMPLETE BLOOD COUNT W/ 2020 05:52:00 Yuriy Parker [facility] INDICES [facility] CALCIUM IONIZED, VENOUS 2020 05:52:00 Rigo Orantes [facility] GLUCOSE LEVEL 2020 05:52:00 Rigo Orantes [facility] ity [facility] BLOOD UREA NITROGEN 2020 05:52:00 Rigo Orantes [facility] ELECTROLYTE PANEL 2020 05:52:00 Rigo Orantes [facility] SERUM CREATININE 2020 05:52:00 Rigo Orantes [facility] .GLOMERULAR FILTRATION 2020 05:52:[address] [facility] ALBUMIN LEVEL 2020 05:52:00 Chano Willams [place] [facility] ALKALINE PHOSPHATASE 2020 05:52:00 Chano Willams [facility] ALANINE AMINOTRANSFERASE 2020 05:52:00 Chano Willams Uni [facility] ASPARTATE AMINOTRANSFERASE 2020 05:52:00 Chano Willams [facility] TOTAL PROTEIN 2020 05:52:00 Chano Willams [place] [facility] FRACTIONATED BILIRUBIN 2020 05:52:00 Chano Willams [facility] POC GLUCOSE SCREEN 2020 04:57:00 Alba Puga [facility] POC GLUCOSE SCREEN 2020 03:20:00 Alba Puga rsity of [facility] POC GLUCOSE SCREEN 2020 02:13:00 Alba Puga rsity of [facility] POC GLUCOSE SCREEN 2020 01:05:00 Alba Puga rsity of [facility] POC GLUCOSE SCREEN 2020-10-07 23:26:00 [facility] GLUCOSE SCREEN 2020-10-07 22:20:00 Alba [facility] LACTIC ACID, VENOUS 2020-10-07 20:37:00 Chano Willams [facility] ty [facility] BASIC METABOLIC PANEL, 2020-10-07 20:37:00 Shraddha Nunn [facility] CALCIUM IONIZED [facility] CALCIUM LEVEL TOTAL 2020-10-07 20:37:00 Edouard, [facility] PHOSPHORUS LEVEL 2020-10-07 20:37:00 Sen, [facility] MAGNESIUM LEVEL 2020-10-07 20:37:00 Edouard, [facility] o f [facility] ARTERIAL BLOOD GAS 2020-10-07 20:37:00 Edouard, [facility] y [facility] CALCIUM IONIZED, VENOUS 2020-10-07 20:37:00 Rigo Orantes [facility] GLUCOSE LEVEL 2020-10-07 20:37:00 Rigo Orantes [facility] BLOOD UREA NITROGEN 2020-10-07 20:37:00 Rigo [facility]antes [facility] ELECTROLYTE PANEL 2020-10-07 20:37:00 Rigo Orantese [facility] SERUM CREATININE 2020-10-07 20:37:00 Rigo Orantes [facility] sity [facility] .GLOMERULAR FILTRATION 2020-10-07 20:37:[address] [facility] POC GLUCOSE SCREEN 2020-10-07 20:24:00 [facility] POC GLUCOSE SCREEN 2020-10-07 19:40:00 Alba Pugae rsity of [facility] POC GLUCOSE SCREEN 2020-10-07 18:34:00 Vivien, Alba P [facility] POC GLUCOSE SCREEN 2020-10-07 16:24:00 Alba Puga [facility] OSCILLATORY PEP 2020-10-07 15:47:02 Alba Puga [facility] POC GLUCOSE SCREEN 2020-10-07 14:23:00 Alba Puga [facility] LACTIC ACID, VENOUS 2020-10-07 13:35:00 Chano Willams [facility] BASIC METABOLIC PANEL, 2020-10-07 13:35:00 Edouard [facility] CALCIUM IONIZED [facility] CALCIUM LEVEL TOTAL 2020-10-07 13:35:00 Edouard [facility] PHOSPHORUS LEVEL 2020-10-07 13:35:00 Edouard, [facility] MAGNESIUM LEVEL 2020-10-07 13:35:00 Edouard [facility] o f [facility] ARTERIAL BLOOD GAS 2020-10-07 13:35:00 Eduoard [facility] CALCIUM IONIZED, VENOUS 2020-10-07 13:35:00 Rigo Orantes [facility] GLUCOSE LEVEL 2020-10-07 13:35:00 Rigo Orantes [facility] BLOOD UREA NITROGEN 2020-10-07 13:35:00 Rigo [facility]antes [facility] ELECTROLYTE PANEL 2020-10-07 13:35:00 Rigo Orantes [facility] SERUM CREATININE 2020-10-07 13:35:00 [facility]antes [facility] .GLOMERULAR FILTRATION 2020-10-07 13:35:[address] [facility] POC GLUCOSE SCREEN 2020-10-07 12:18:00 Alba Puga Unive [facility] XR CHEST 1 VW PORTABLE 2020-10-07 10:53:00 Yuriy Parker [facility] POC GLUCOSE SCREEN 2020-10-07 10:41:00 Alba Puga [facility] POC GLUCOSE SCREEN 2020-10-07 09:23:00 Alba Puga [facility] POC GLUCOSE SCREEN 2020-10-07 08:41:00 Alba Puga Univlarissa [facility] POC GLUCOSE SCREEN 2020-10-07 07:21:00 Alba Puga [facility] LACTIC ACID, VENOUS 2020-10-07 05:53:00 Chano Willams [facility] BASIC METABOLIC PANEL, 2020-10-07 05:53:00 Shraddha [facility] CALCIUM IONIZED [facility] CALCIUM LEVEL TOTAL 2020-10-07 05:53:00 Edouard [facility] PHOSPHORUS LEVEL 2020-10-07 05:53:00 Edouard [facility] MAGNESIUM LEVEL 2020-10-07 05:53:00 Edouard [facility] o f [facility] ARTERIAL BLOOD GAS 2020-10-07 05:53:00 Edouard [facility] PROTHROMBIN TIME 2020-10-07 05:53:00 Yuriy Parker [facility] APTT 2020-10-07 05:53:00 Yuriy Parker [facility] HEPATIC FUNCTION PANEL 2020-10-07 05:53:00 Yuriy Parker [facility] COMPLETE BLOOD COUNT W/ 2020-10-07 05:53:00 Yuriy Parker [facility] CALCIUM IONIZED, VENOUS 2020-10-07 05:53:00 Rigo Orantes [facility] GLUCOSE LEVEL 2020-10-07 05:53:00 Rigo Orantes [facility] BLOOD UREA NITROGEN 2020-10-07 05:53:00 Rigo Orantes [facility] ELECTROLYTE PANEL 2020-10-07 05:53:00 Rigo Orantes [facility] SERUM CREATININE 2020-10-07 05:53:00 Rigo Orantes [facility] .GLOMERULAR FILTRATION 2020-10-07 05:53:[address] [facility] ALBUMIN LEVEL 2020-10-07 05:53:00 Chano Willams [place] [facility] ALKALINE PHOSPHATASE 2020-10-07 05:53:00 Chano Willams [facility] ALANINE AMINOTRANSFERASE 2020-10-07 05:53:00 Chano Willams [facility] ASPARTATE AMINOTRANSFERASE 2020-10-07 05:53:00 Chano Willams [facility] TOTAL PROTEIN 2020-10-07 05:53:00 Chano Willams [place] [facility] FRACTIONATED BILIRUBIN 2020-10-07 05:53:00 Chano Willams [facility] POC GLUCOSE SCREEN 2020-10-07 04:56:00 Alba [facility] POC GLUCOSE SCREEN 2020-10-07 03:04:00 Alba Puga rsity of [facility] POC GLUCOSE SCREEN 2020-10-07 02:05:00 Alba Puga [facility] POC GLUCOSE SCREEN 2020-10-07 00:58:00 Alba Puga [facility] POC GLUCOSE SCREEN 2020-10-06 22:56:00 [facility] LACTIC ACID, VENOUS 2020-10-06 21:52:00 Chano Willams [facility] ty [facility] BASIC METABOLIC PANEL, 2020-10-06 21:52:00 [facility] CALCIUM IONIZED [facility] CALCIUM LEVEL TOTAL 2020-10-06 21:52:00 Edouard [facility] PHOSPHORUS LEVEL 2020-10-06 21:52:00 Sen, [facility] MAGNESIUM LEVEL 2020-10-06 21:52:00 Edouard [facility] o f [facility] ARTERIAL BLOOD GAS 2020-10-06 21:52:00 Ed[facility]ard [facility] CALCIUM IONIZED, VENOUS 2020-10-06 21:52:00 Rigo Orantes [facility] GLUCOSE LEVEL 2020-10-06 21:52:00 Rigo Orantes [facility] BLOOD UREA NITROGEN 2020-10-06 21:52:00 [facility] 2020-10-06 21:52:00 Rigo Orantes [facility] SERUM CREATININE 2020-10-06 21:52:00 Rigo Orantes [facility] sity [facility] .GLOMERULAR FILTRATION 2020-10-06 21:52:[address] [facility] POC GLUCOSE SCREEN 2020-10-06 21:00:00 Alba Puga rsity [facility] POC GLUCOSE SCREEN 2020-10-06 19:58:00 Alba Puga rsity [facility] POC GLUCOSE SCREEN 2020-10-06 19:21:00 Alba Puga rsity [facility] POC GLUCOSE SCREEN 2020-10-06 17:40:00 Vivien, Alba P [facility] POC GLUCOSE SCREEN 2020-10-06 16:14:00 Alba Puga [facility] COVID-19 (SARS-COV-2) 2020-10-06 15:33:00 Randolph Payne [facility] PCR-ASYMPTOMATIC [facility] POC GLUCOSE SCREEN 2020-10-06 14:33:00 Alba Puga [facility] LACTIC ACID, VENOUS 2020-10-06 13:46:00 Chano Willams [facility] BASIC METABOLIC PANEL, 2020-10-06 13:46:00 [facility] CALCIUM IONIZED [facility] CALCIUM LEVEL TOTAL 2020-10-06 13:46:00 Ed[facility]ard [facility] PHOSPHORUS LEVEL 2020-10-06 13:46:00 Ed[facility]ard [facility] MAGNESIUM LEVEL 2020-10-06 13:46:00 Edouard [facility] o f [facility] ARTERIAL BLOOD GAS 2020-10-06 13:46:00 Edouard Shraddha [facility] CALCIUM IONIZED, VENOUS 2020-10-06 13:46:00 Rigo Orantes [facility] GLUCOSE LEVEL 2020-10-06 13:46:00 Rigo Orantes [facility] BLOOD UREA NITROGEN 2020-10-06 13:46:00 Rigo Orantes [facility] ELECTROLYTE PANEL 2020-10-06 13:46:00 Rigo Orantes [facility] SERUM CREATININE 2020-10-06 13:46:00 Rigo Orantes [facility] .GLOMERULAR FILTRATION 2020-10-06 13:46:00 Rigo Orantes [facility] RATE [facility] TRANSFUSE RED BLOOD CELLS 2020-10-06 12:40:00 Migdalia Kruger [facility] POC GLUCOSE SCREEN 2020-10-06 12:31:00 Alba Puga [facility] POC GLUCOSE SCREEN 2020-10-06 10:28:00 Randolph Payne [facility] POC GLUCOSE SCREEN 2020-10-06 08:35:00 Randolph Payne [facility] XR CHEST 1 VW PORTABLE 2020-10-06 08:17:51 Yuriy Parker [facility] PREPARE RBC 2020-10-06 08:12:00 Migdalia Kruger [facility] PRBC PRODUCT READY FOR 2020-10-06 08:12:00 Randolph Payne [facility] 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 [facility] POC GLUCOSE SCREEN 2020-10-06 06:34:00 Randolhp Payne [facility] LACTIC ACID, VENOUS 2020-10-06 06:05:00 Chano Willams [facility] BASIC METABOLIC PANEL, 2020-10-06 06:05:00 Shraddha Nunn [facility] CALCIUM IONIZED [facility] CALCIUM LEVEL TOTAL 2020-10-06 06:05:00 Shraddha Nunn [facility] PHOSPHORUS LEVEL 2020-10-06 06:05:00 Ed[facility]ard [facility] MAGNESIUM LEVEL 2020-10-06 06:05:00 Shraddha Nunn [place] [facility] ARTERIAL BLOOD GAS 2020-10-06 06:05:00 Shraddha Nunn [facility] PROTHROMBIN TIME 2020-10-06 06:05:00 Yuriy Parker [facility] APTT 2020-10-06 06:05:00 Yuriy Parkre [facility] HEPATIC FUNCTION PANEL 2020-10-06 06:05:00 Yuriy Parker [facility] COMPLETE BLOOD COUNT W/ 2020-10-06 06:05:00 Yuriy Parker [facility] CALCIUM IONIZED, VENOUS 2020-10-06 06:05:00 Rigo Orantes [facility] GLUCOSE LEVEL 2020-10-06 06:05:00 Rigo Orantes [facility] BLOOD UREA NITROGEN 2020-10-06 06:05:00 Rigo Orantes [facility] ELECTROLYTE PANEL 2020-10-06 06:05:00 Rigo Orantes [facility] SERUM CREATININE 2020-10-06 06:05:00 Rigo Orantes [facility] .GLOMERULAR FILTRATION 2020-10-06 06:05:[address] [facility] ALBUMIN LEVEL 2020-10-06 06:05:00 Chano Willams [place] [facility] ALKALINE PHOSPHATASE 2020-10-06 06:05:00 Chano Willams [facility] ALANINE AMINOTRANSFERASE 2020-10-06 06:05:00 Chano Willams [facility] ASPARTATE AMINOTRANSFERASE 2020-10-06 06:05:00 Chano Willams [facility] TOTAL PROTEIN 2020-10-06 06:05:00 Chano Willams [place] [facility] FRACTIONATED BILIRUBIN 2020-10-06 06:05:00 Chano Willams [facility] POC GLUCOSE SCREEN 2020-10-06 04:40:00 Randolph Payne [facility] POC GLUCOSE SCREEN 2020-10-06 03:36:00 Randolph Payne [facility] POC GLUCOSE SCREEN 2020-10-06 02:23:00 Randolph Payne [facility] POC GLUCOSE SCREEN 2020-10-06 01:31:00 Randolph Payne [facility] POC GLUCOSE SCREEN 2020-10-06 00:09:00 Randolph Payne [facility] POC GLUCOSE SCREEN 2020-10-05 23:21:00 Randolph Payne [facility] POC GLUCOSE SCREEN 2020-10-05 22:15:00 Randolph Payne [facility] LACTIC ACID, VENOUS 2020-10-05 21:09:00 Chano Willams [facility] BASIC METABOLIC PANEL, 2020-10-05 21:09:00 [facility]ha [facility] CALCIUM IONIZED [facility] CALCIUM LEVEL TOTAL 2020-10-05 21:09:00 [facility]ard [facility] PHOSPHORUS LEVEL 2020-10-05 21:09:00 [facility] 2020-10-05 21:09:00 Edouard [facility] ARTERIAL BLOOD GAS 2020-10-05 21:09:00 Edouard [facility] CALCIUM IONIZED, VENOUS 2020-10-05 21:09:00 Rigo Orantes [facility] GLUCOSE LEVEL 2020-10-05 21:09:00 Rigo Orantes [facility] BLOOD UREA NITROGEN 2020-10-05 21:09:00 Rigo Orantes [facility] ELECTROLYTE PANEL 2020-10-05 21:09:00 Rigo Orantes [facility] SERUM CREATININE 2020-10-05 21:09:00 Rigo Orantes [facility] .GLOMERULAR FILTRATION 2020-10-05 21:09:[address] [facility] POC GLUCOSE SCREEN 2020-10-05 20:28:00 Randolph Payne [facility] POC GLUCOSE SCREEN 2020-10-05 19:20:00 Randolph Payne [facility] POC GLUCOSE SCREEN 2020-10-05 18:05:00 Randolph Payne [facility] POC GLUCOSE SCREEN 2020-10-05 16:37:00 Randolph Payne [facility] LACTIC ACID, VENOUS 2020-10-05 13:48:00 Chano Willams [facility] BASIC METABOLIC PANEL, 2020-10-05 13:48:00 [facility]ha [facility] CALCIUM IONIZED [facility] CALCIUM LEVEL TOTAL 2020-10-05 13:48:00 Ed[facility]ard [facility] PHOSPHORUS LEVEL 2020-10-05 13:48:00 [facility]NESI[facility] LEVEL 2020-10-05 13:48:00 Edouard [facility] ARTERIAL BLOOD GAS 2020-10-05 13:48:00 Edouard [facility] CALCIUM IONIZED, VENOUS 2020-10-05 13:48:00 Rigo Orantes [facility] GLUCOSE LEVEL 2020-10-05 13:48:00 Rigo Orantes [facility] BLOOD UREA NITROGEN 2020-10-05 13:48:00 Rigo Orantes [facility] ELECTROLYTE PANEL 2020-10-05 13:48:00 Rigo Orantes [facility] SERUM CREATININE 2020-10-05 13:48:00 Rigo Orantes [facility] .GLOMERULAR FILTRATION 2020-10-05 13:48:[address] [facility] POC GLUCOSE SCREEN 2020-10-05 10:58:00 Randolph Payne [facility] BASIC METABOLIC PANEL, 2020-10-05 09:55:00 Bailey Marshall [facility] CALCIUM IONIZED [facility] MAGNESIUM LEVEL 2020-10-05 09:55:00 Bailey Marshall [facility] PHOSPHORUS LEVEL 2020-10-05 09:55:00 Bailey Marshall [facility] GLUCOSE LEVEL 2020-10-05 09:55:00 Bailey Marshall [facility] BLOOD UREA NITROGEN 2020-10-05 09:55:00 Bailey [facility] ELECTROLYTE PANEL 2020-10-05 09:55:00 Bailey Marshall [facility] SERUM CREATININE 2020-10-05 09:55:00 Bailey Marshall [facility] .GLOMERULAR FILTRATION 2020-10-05 09:55:00 Bailey Marshall [facility] CALCIUM IONIZED, VENOUS 2020-10-05 09:55:00 Bailey [facility] 1 VW PORTABLE 2020-10-05 08:47:48 Yuriy Parker [facility] TYPE AND SCREEN 2020-10-05 08:40:00 Yuriy Parker [facility] ABORH 2020-10-05 08:40:00 Karyn Andre [facility] ANTIBODY SCREEN 2020-10-05 08:40:00 Karyn Andre [facility] CLOT EXPIRATION DATE 2020-10-05 08:40:00 Karyn Andre Uni [facility] TMP INTERPRETATION 2020-10-05 08:40:00 Karyn Andre [facility] ANTIBODY SCREEN NEGATIVE [facility] TMP CROSSMATCH 2020-10-05 08:40:00 Karyn Andre [facility] INTERPRETATION [facility] LACTIC ACID, VENOUS 2020-10-05 06:43:00 Chano Willams [facility] MAGNESIUM LEVEL 2020-10-05 06:43:00 Edouard [facility] o [facility] ARTERIAL BLOOD GAS 2020-10-05 06:43:00 Edouard Shraddha [facility] PROTHROMBIN TIME 2020-10-05 06:43:00 Yuriy Parker [facility] APTT 2020-10-05 06:43:00 Yuriy Parker [facility] HEPATIC FUNCTION PANEL 2020-10-05 06:43:00 Yuriy Parker [facility] COMPLETE BLOOD COUNT W/ 2020-10-05 06:43:00 Yuriy Parker [facility] ALBUMIN LEVEL 2020-10-05 06:43:00 Chano Willams o [facility] ALKALINE PHOSPHATASE 2020-10-05 06:43:00 Chano Willams [facility] ALANINE AMINOTRANSFERASE 2020-10-05 06:43:00 [facility] ASPARTATE AMINOTRANSFERASE 2020-10-05 06:43:00 [facility]ano Willams [facility] TOTAL PROTEIN 2020-10-05 06:43:00 Chano Willams [place] [facility] FRACTIONATED BILIRUBIN 2020-10-05 06:43:00 Chano Willams [facility] POC GLUCOSE SCREEN 2020-10-05 04:22:00 Randolph Payne [facility] POC GLUCOSE SCREEN 2020-10-04 22:35:00 Randolph Payne [facility] TRANSFUSE PLATELETS 2020-10-04 22:15:00 Cecelia Ley [facility] TMP EXCEPTION 2020-10-04 21:45:00 Randolph Payne [place] [facility] LACTIC ACID, VENOUS 2020-10-04 21:24:00 Chano Willams [facility] ARTERIAL BLOOD GAS 2020-10-04 21:24:00 Shraddha Nunn [facility] BASIC METABOLIC PANEL, 2020-10-04 21:24:00 Cecelia Ley [facility] CALCIUM IONIZED [facility] PHOSPHORUS LEVEL 2020-10-04 21:24:00 Cecelia Ley [facility] GLUCOSE LEVEL 2020-10-04 21:24:00 Cecelia Ley [facility] BLOOD UREA NITROGEN 2020-10-04 21:24:00 Cecelia Ley [facility] ELECTROLYTE PANEL 2020-10-04 21:24:00 Cecelia Ley [facility] SERUM CREATININE 2020-10-04 21:24:00 Cecelia Ley [facility] .GLOMERULAR FILTRATION 2020-10-04 21:24:00 Cecelia Ley [facility] CALCIUM IONIZED, VENOUS 2020-10-04 21:24:00 Cecelia Ley [facility] MAGNESIUM LEVEL 2020-10-04 21:24:00 Cecelia Ley [facility] PREPARE PLATELETS 2020-10-04 19:15:00 Cecelia Ley [facility] PLT PRODUCT READY FOR PICK 2020-10-04 19:15:00 Randolph Payne [facility] COMPLETE BLOOD COUNT W/ 2020-10-04 17:40:00 Cecelia Ley [facility] DIFFERENTIAL [facility] FIBRINOGEN ACTIVITY 2020-10-04 17:40:00 Cecelia Ley [facility] Results CBC 2020-10-04 17:40:00 Cecelia Ley [facility] MANUAL DIFFERENTIAL 2020-10-04 17:40:00 Cecelia Ley [facility] BLOODCULTURE 2020-10-04 17:06:00 Ran Priest [facility] POC GLUCOSE SCREEN 2020-10-04 16:36:00 Randolph Payne [facility] LACTIC ACID, VENOUS 2020-10-04 13:38:00 Chano Willams [facility] BASIC METABOLIC PANEL, 2020-10-04 13:38:00 [facility] CALCIUM IONIZED [facility] CALCIUM LEVEL TOTAL 2020-10-04 13:38:00 [facility]ard [facility] PHOSPHORUS LEVEL 2020-10-04 13:38:00 Ed[facility]ard [facility] MAGNESIUM LEVEL 2020-10-04 13:38:00 Edouard [facility] o [facility] ARTERIAL BLOOD GAS 2020-10-04 13:38:00 Ed[facility]ard [facility] CALCIUM IONIZED, VENOUS 2020-10-04 13:38:00 Cory Hickman [facility] GLUCOSE LEVEL 2020-10-04 13:38:00 Cory Hickman [place] [facility] BLOOD UREA NITROGEN 2020-10-04 13:38:00 Cory Hickman [facility] ELECTROLYTE PANEL 2020-10-04 13:38:00 Marylou [facility] SERUM CREATININE 2020-10-04 13:38:00 Marylou [facility] .GLOMERULAR FILTRATION 2020-10-04 13:38:00 [facility] RATE [facility] POC GLUCOSE SCREEN 2020-10-04 10:57:00 Randolph Payne [facility] VRE CULTURE 2020-10-04 08:33:00 Yuriy Parker [facility] XR CHEST 1 VW PORTABLE 2020-10-04 06:27:00 Yuriy Parker [facility] ARTERIAL BLOOD GAS 2020-10-04 06:05:00 Edouard [facility] MAGNESIUM LEVEL 2020-10-04 06:05:00 Edouard [facility] LACTIC ACID, VENOUS 2020-10-04 06:05:00 Chano Willams [facility] BASIC METABOLIC PANEL, 2020-10-04 06:05:00 Shraddha Nunn [facility] CALCIUM IONIZED [facility] CALCIUM LEVEL TOTAL 2020-10-04 06:05:00 [facility]ard [facility] PHOSPHORUS LEVEL 2020-10-04 06:05:00 [facility]ard [facility] PROTHROMBIN TIME 2020-10-04 06:05:00 Yuriy Parker [facility] APTT 2020-10-04 06:05:00 Yuriy Parker [facility] HEPATIC FUNCTION PANEL 2020-10-04 06:05:00 Yuriy Parker [facility] COMPLETE BLOOD COUNT W/ 2020-10-04 06:05:00 Yuriy Parker [facility] INDICES [facility] CALCIUM IONIZED, VENOUS 2020-10-04 06:05:00 Cory Hickamn [facility] GLUCOSE LEVEL 2020-10-04 06:05:00 Cory Hickman [facility] BLOOD UREA NITROGEN 2020-10-04 06:05:00 Cory Hickman [facility] ELECTROLYTE PANEL 2020-10-04 06:05:00 Marylou [facility] SERUM CREATININE 2020-10-04 06:05:00 Marylou [facility] .GLOMERULAR FILTRATION 2020-10-04 06:05:00 Cory Hickman [facility] ALBUMIN LEVEL 2020-10-04 06:05:00 Chano Willams [facility] ALKALINE PHOSPHATASE 2020-10-04 06:05:00 Chano Willams [facility] ALANINE AMINOTRANSFERASE 2020-10-04 06:05:00 Chano Willams [facility] ASPARTATE AMINOTRANSFERASE 2020-10-04 06:05:00 Chano Willams [facility] TOTAL PROTEIN 2020-10-04 06:05:00 Chano Willams [facility] FRACTIONATED BILIRUBIN 2020-10-04 06:05:00 Chano Willams [facility] MAGNESIUM LEVEL 2020-10-04 05:58:00 Chano Willams [facility] POC GLUCOSE SCREEN 2020-10-04 04:24:00 [facility] GLU[facility]SE SCRE[facility] 2020-10-03 22:23:00 Randolph Payne [facility] LACTIC ACID, VENOUS 2020-10-03 21:07:00 Chano Willams [facility] BASIC METABOLIC PANEL, 2020-10-03 21:07:00 Shraddha Nunn [facility] CALCIUM IONIZED [facility] CALCIUM LEVEL TOTAL 2020-10-03 21:07:00 Shraddha Nunn [facility] PHOSPHORUS LEVEL 2020-10-03 21:07:00 Ed[facility]ard [facility] MAGNESIUM LEVEL 2020-10-03 21:07:00 Edouard [facility] ARTERIAL BLOOD GAS 2020-10-03 21:07:00 Shraddha Nunn [facility] HEPATITIS B SURFACE 2020-10-03 21:07:00 Edouard [facility] ANTIGEN, SERUM [facility] CALCIUM IONIZED, VENOUS 2020-10-03 21:07:00 Cory Hickman [facility] GLUCOSE LEVEL 2020-10-03 21:07:00 Cory Hickman [facility] BLOOD UREA NITROGEN 2020-10-03 21:07:00 Cory Hickman [facility] ELECTROLYTE PANEL 2020-10-03 21:07:00 Marylou [facility] SERUM CREATININE 2020-10-03 21:07:00 Marylou [facility] .GLOMERULAR FILTRATION 2020-10-03 21:07:00 Cory [facility] RATE [facility] HEPATITIS B SURFACE AG 2020-10-03 21:07:00 Rigo Orantes [facility] W/CONFIRM [facility] POC GLUCOSE SCREEN 2020-10-03 17:17:00 Randolph Payne [facility] LACTIC ACID, VENOUS 2020-10-03 13:51:00 Chano Willams [facility] BASIC METABOLIC PANEL, 2020-10-03 13:51:00 [facility] CALCIUM IONIZED [facility] CALCIUM LEVEL TOTAL 2020-10-03 13:51:00 [facility]ard [facility] PHOSPHORUS LEVEL 2020-10-03 13:51:00 [facility] ARTERIAL BLOOD GAS 2020-10-03 13:51:00 Chano Willams [facility] CALCIUM IONIZED, VENOUS 2020-10-03 13:51:00 Cory Hickman [facility] GLUCOSE LEVEL 2020-10-03 13:51:00 Cory Hickman [place] [facility] BLOOD UREA NITROGEN 2020-10-03 13:51:00 Cory Hickman [facility] ELECTROLYTE PANEL 2020-10-03 13:51:00 Marylou [facility] SERUM CREATININE 2020-10-03 13:51:00 Marylou [facility] .GLOMERULAR FILTRATION 2020-10-03 13:51:00 Cory Hickman [facility] MAGNESIUM LEVEL 2020-10-03 13:51:00 Cory Hickman [place] [facility] POC GLUCOSE SCREEN 2020-10-03 10:47:00 Randolph Payne [facility] XR CHEST 1 VW PORTABLE 2020-10-03 06:41:19 Yuriy Parker [facility] LACTIC ACID, VENOUS 2020-10-03 05:42:00 Chano Willams [facility] BASIC METABOLIC PANEL, 2020-10-03 05:42:00 [facility]ha [facility] CALCIUM IONIZED [facility] CALCIUM LEVEL TOTAL 2020-10-03 05:42:00 Shraddha Nunn [facility] PHOSPHORUS LEVEL 2020-10-03 05:42:00 [facility] PROTHROMBIN TIME 2020-10-03 05:42:00 [facility]y Parker [facility] APTT 2020-10-03 05:42:00 Yuriy Parker [facility] ARTERIAL BLOOD GAS 2020-10-03 05:42:00 Chano Willams [facility] MAGNESIUM LEVEL 2020-10-03 05:42:00 Chano Willams [place] [facility] HEPATIC FUNCTION PANEL 2020-10-03 05:42:00 Yuriy Parker [facility] COMPLETE BLOOD COUNT W/ 2020-10-03 05:42:00 Yuriy Parker [facility] CALCIUM IONIZED, VENOUS 2020-10-03 05:42:00 Cory Hickman [facility] GLUCOSE LEVEL 2020-10-03 05:42:00 Cory Hickman [place] [facility] BLOOD UREA NITROGEN 2020-10-03 05:42:00 Cory Hickman [facility] ELECTROLYTE PANEL 2020-10-03 05:42:00 Marylou [facility] SERUM CREATININE 2020-10-03 05:42:00 Marylou [facility] .GLOMERULAR FILTRATION 2020-10-03 05:42:00 Cory Hickman [facility] ALBUMIN LEVEL 2020-10-03 05:42:00 Chano Willams o f [facility] ALKALINE PHOSPHATASE 2020-10-03 05:42:00 Chano Willams [facility] ALANINE AMINOTRANSFERASE 2020-10-03 05:42:00 Chaon [facility]ams [facility] ASPARTATE AMINOTRANSFERASE 2020-10-03 05:42:00 Chano Willams [facility] TOTAL PROTEIN 2020-10-03 05:42:00 Chano Willams o [facility] FRACTIONATED BILIRUBIN 2020-10-03 05:42:00 Chano Willams [facility] POC GLUCOSE SCREEN 2020-10-03 04:49:00 Randolph Payne y [facility] POC GLUCOSE SCREEN 2020-10-02 22:26:00 Randolph Payne [facility] LACTIC ACID, VENOUS 2020-10-02 21:29:00 Chano Willams [facility] BASIC METABOLIC PANEL, 2020-10-02 21:29:00 [facility]ha [facility] CALCIUM IONIZED [facility] CALCIUM LEVEL TOTAL 2020-10-02 21:29:00 Edouard [facility] PHOSPHORUS LEVEL 2020-10-02 21:29:00 [facility] ARTERIAL BLOOD GAS 2020-10-02 21:29:00 Imer Chano [facility] MAGNESIUM LEVEL 2020-10-02 21:29:00 Imer, [facility] CALCIUM IONIZED, VENOUS 2020-10-02 21:29:00 Cory Hickman [facility] GLUCOSE LEVEL 2020-10-02 21:29:00 Marylou [facility] BLOOD UREA NITROGEN 2020-10-02 21:29:00 Cory Hickman [facility] ELECTROLYTE PANEL 2020-10-02 21:29:00 Jagruti [facility] SERUM CREATININE 2020-10-02 21:29[facility] 2020-10-02 21:29:00 [facility] RATE [facility] POC GLUCOSE SCREEN 2020-10-02 16:42:00 Randolph Payne [facility] ARTERIAL BLOOD GAS 2020-10-02 15:36:00 Chano Willams [facility] MAGNESIUM LEVEL 2020-10-02 15:36:00 [facility] TYPE AND SCREEN 2020-10-02 12:59:00 Yuriy Parker [facility] LACTIC ACID, VENOUS 2020-10-02 12:59:00 Chano Willams [facility] BASIC METABOLIC PANEL, 2020-10-02 12:59:00 Shraddha Nunn [facility] CALCIUM IONIZED [facility] CALCIUM LEVEL TOTAL 2020-10-02 12:59:00 Ed[facility]ard [facility] PHOSPHORUS LEVEL 2020-10-02 12:59:00 [facility] ABORH 2020-10-02 12:59:00 Karyn Andre [facility] ANTIBODY SCREEN 2020-10-02 12:59:00 [facility] [facility] CALCIUM IONIZED, VENOUS 2020-10-02 12:59:00 Cory Hickman [facility] GLUCOSE LEVEL 2020-10-02 12:59:00 Cory Hickman [place] [facility] BLOOD UREA NITROGEN 2020-10-02 12:59:00 Cory Hickman [facility] ELECTROLYTE PANEL 2020-10-02 12:59:00 Marylou [facility] SERUM CREATININE 2020-10-02 12:59:00 Marylou [facility] .GLOMERULAR FILTRATION 2020-10-02 12:59:00 Cory Hickman [facility] RATE [facility] CLOT EXPIRATION DATE 2020-10-02 12:59:00 [facility] INTERPRETATION 2020-10-02 12:59:00 Karyn Andre [facility] ANTIBODY SCREEN NEGATIVE MD Thompson [facility] POC GLUCOSE SCREEN 2020-10-02 10:41:00 Randolph Payne [facility] XR CHEST 1 VW PORTABLE 2020-10-02 07:42:56 Yuriy Parker [facility] GENERAL LABORATORY ADD ON 2020-10-02 07:35:00 L[facility] GENERAL LABORATORY ADD ON 2020-10-02 07:32:00 [facility] LACTIC ACID, VENOUS 2020-10-02 05:56:00 Chano Willams [facility] BASIC METABOLIC PANEL, 2020-10-02 05:56:00 [facility] CALCIUM IONIZED [facility] CALCIUM LEVEL TOTAL 2020-10-02 05:56:00 Edouard [facility] PHOSPHORUS LEVEL 2020-10-02 05:56:00 [facility]ard [facility] PROTHROMBIN TIME 2020-10-02 05:56:00 Yuriy Parker [facility] APTT 2020-10-02 05:56:00 Yuriy Parker [facility] ARTERIAL BLOOD GAS 2020-10-02 05:56:00 Chano Willams [facility] MAGNESIUM LEVEL 2020-10-02 05:56:00 Chano Willams [place] [facility] HEPATIC FUNCTION PANEL 2020-10-02 05:56:00 Yuriy Parker [facility] COMPLETE BLOOD COUNT W/ 2020-10-02 05:56:00 Yuriy Parker [facility] INDICES [facility] CALCIUM IONIZED, VENOUS 2020-10-02 05:56:00 Cory [facility] GLUCOSE LEVEL 2020-10-02 05:56:00 Cory Hickman [place] [facility] BLOOD UREA NITROGEN 2020-10-02 05:56:00 Cory Hickman [facility] ELECTROLYTE PANEL 2020-10-02 05:56:00 Cory Hickman [facility] SERUM CREATININE 2020-10-02 05:56:00 Cory Hickman [facility] .GLOMERULAR FILTRATION 2020-10-02 05:56:00 Cory Hickman [facility] ALBUMIN LEVEL 2020-10-02 05:56:00 Imer Chano [place] [facility] ALKALINE PHOSPHATASE 2020-10-02 05:56:00 Chano Willams [facility] ALANINE AMINOTRANSFERASE 2020-10-02 05:56:00 Chano Willams [facility] ASPARTATE AMINOTRANSFERASE 2020-10-02 05:56:00 Chano Willams [facility] TOTAL PROTEIN 2020-10-02 05:56:00 Chano Willams [facility] FRACTIONATED BILIRUBIN 2020-10-02 05:56:00 Chano Willams [facility] POC GLUCOSE SCREEN 2020-10-02 04:42:00 Randolph Payne [facility] POC GLUCOSE SCREEN 2020-10-01 22:24:00 Randolph Payne [facility] LACTIC ACID, VENOUS 2020-10-01 21:48:00 Chano Willams [facility] BASIC METABOLIC PANEL, 2020-10-01 21:48:00 Shraddha Nunn [facility] CALCIUM IONIZED [facility] CALCIUM LEVEL TOTAL 2020-10-01 21:48:00 Shraddha Nunn [facility] PHOSPHORUS LEVEL 2020-10-01 21:48:00 Shraddha Nunn [facility] ARTERIAL BLOOD GAS 2020-10-01 21:48:00 Chano Willams [facility] MAGNESIUM LEVEL 2020-10-01 21:48:00 Imer Chano [facility] THYROID STIMULATING 2020-10-01 21:48:00 Jurgen [facility] HORMONE [facility] FREE THYROXINE 2020-10-01 21:48:00 Bret [facility] CALCIUM IONIZED, VENOUS 2020-10-01 21:48:00 Cory [facility] GLUCOSE LEVEL 2020-10-01 21:48:00 Cory Hickman [facility] BLOOD UREA NITROGEN 2020-10-01 21:48:00 Cory Hickman [facility] ELECTROLYTE PANEL 2020-10-01 21:48:00 Marylou [facility] SERUM CREATININE 2020-10-01 21:48:00 Marylou [facility] .GLOMERULAR FILTRATION 2020-10-01 21:48:00 [facility] RATE [facility] XR ABDOMEN 1 VW PORTABLE 2020-10-01 18:55:51 Kiara Patel [facility] POC GLUCOSE SCREEN 2020-10-01 16:30:00 Randolph Payne [facility] LACTIC ACID, VENOUS 2020-10-01 13:38:00 Imer Chano [facility] BASIC METABOLIC PANEL, 2020-10-01 13:38:00 [facility] CALCIUM IONIZED [facility] CALCIUM LEVEL TOTAL 2020-10-01 13:38:00 Shraddha Nunn [facility] PHOSPHORUS LEVEL 2020-10-01 13:38:00 Edouard [facility] ARTERIAL BLOOD GAS 2020-10-01 13:38:00 Imer Chano [facility] MAGNESIUM LEVEL 2020-10-01 13:38:00 Imer Chano [facility] CALCIUM IONIZED, VENOUS 2020-10-01 13:38:00 Cory H[facility] GLUCOSE LEVEL 2020-10-01 13:38:00 Cory Hickman [place] [facility] BLOOD UREA NITROGEN 2020-10-01 13:38:00 Cory Hickman [facility] ELECTROLYTE PANEL 2020-10-01 13:38:00 Cory Hickman [facility] SERUM CREATININE 2020-10-01 13:38:00 Marylou [facility] .GLOMERULAR FILTRATION 2020-10-01 13:38:00 [facility] RATE [facility] POC GLUCOSE SCREEN 2020-10-01 10:26:00 Randolph Payne [facility] ARTERIAL BLOOD GAS 2020-10-01 06:43:00 Chano Willams [facility] XR CHEST 1 VW PORTABLE 2020-10-01 05:54:00 Yuriy Parker [facility] LACTIC ACID, VENOUS 2020-10-01 05:47:00 Chano Willams [facility] CALCIUM LEVEL TOTAL 2020-10-01 05:47:00 Shraddha Nunn [facility] PHOSPHORUS LEVEL 2020-10-01 05:47:00 Chano Willams [facility] MAGNESIUM LEVEL 2020-10-01 05:47:00 Chano Willams [place] [facility] VENOUS BLOOD GAS 2020-10-01 05:47:00 Karyn Andre [facility] PROTHROMBIN TIME 2020-10-01 05:47:00 [facility]y Parker [facility] APTT 2020-10-01 05:47:00 Yuriy Parker [facility] BASIC METABOLIC PANEL, 2020-10-01 05:47:00 Chano Willams [facility] CALCIUM IONIZED [facility] COMPLETE BLOOD COUNT W/ 2020-10-01 05:47:00 Chano Willams [facility] INDICES [facility] HEPATIC FUNCTION PANEL 2020-10-01 05:47:00 Yuriy Parker [facility] CALCIUM IONIZED, VENOUS 2020-10-01 05:47:00 Chano Willams [facility] GLUCOSE LEVEL 2020-10-01 05:47:00 Chano Willams [place] [facility] BLOOD UREA NITROGEN 2020-10-01 05:47:00 [facility]EL 2020-10-01 05:47:00 Chano Willams [facility] SERUM CREATININE 2020-10-01 05:47:00 Chano Willams [facility] .GLOMERULAR FILTRATION 2020-10-01 05:47:00 Chano Willams [facility] RATE [facility] ALBUMIN LEVEL 2020-10-01 05:47:00 Chano Willams [place] [facility] ALKALINE PHOSPHATASE 2020-10-01 05:47:00 Chano Willams [facility] ALANINE AMINOTRANSFERASE 2020-10-01 05:47:00 Chano Willams [facility] ASPARTATE AMINOTRANSFERASE 2020-10-01 05:47:00 Chano Willams [facility] TOTAL PROTEIN 2020-10-01 05:47:00 Chano Willams o [facility] FRACTIONATED BILIRUBIN 2020-10-01 05:47:00 Chano Willams [facility] POC GLUCOSE SCREEN 2020-10-01 04:13:00 Randolph Payne [facility] EKG, 12-LEAD (PORTABLE) 2020-10-01 00:00:00 Yuriy Parker [facility] POC GLUCOSE SCREEN 2020-09-30 22:29:00 Randolph Payne [facility] ARTERIAL BLOOD GAS 2020-09-30 21:54:00 Chano Willams [facility] LACTIC ACID, VENOUS 2020-09-30 21:54:00 Chano Willams [facility] COMPLETE BLOOD COUNT W/ 2020-09-30 21:54:00 Chano Willams [facility] INDICES [facility] BASIC METABOLIC PANEL, 2020-09-30 21:54:00 Shraddha Nunn [facility] CALCIUM IONIZED [facility] CALCIUM LEVEL TOTAL 2020-09-30 21:54:00 Edouard [facility] PHOSPHORUS LEVEL 2020-09-30 [facility]:54[facility] 2020-09-30 21:54:00 Edouard [facility] CALCIUM IONIZED, VENOUS 2020-09-30 21:54:00 Cory [facility] GLUCOSE LEVEL 2020-09-30 21:54:00 Cory Hickman [facility] BLOOD UREA NITROGEN 2020-09-30 21:54:00 Cory Hickman [facility] ELECTROLYTE PANEL 2020-09-30 21:54:00 Marylou [facility] SERUM CREATININE 2020-09-30 21:54:00 Marylou [facility] .GLOMERULAR FILTRATION 2020-09-30 21:54:00 Cory [facility] RATE [facility] TRANSFUSE FRESH FROZEN 2020-09-30 21:30:00 Chano Willams [facility] PLASMA [facility] LEGIONELLA CULTURE 2020-09-30 21:25:00 [facility] W/ SMEAR 2020-09-30 21:25:00 Chano Willams [facility] FUNGUS CULTURE 2020-09-30 21:25:00 Chano Willams o f [facility] LOWER RESPIRATORY CULTURE 2020-09-30 21:25:00 Chaon [facility]ams [facility]/ GRAM STAIN [facility] PNEUMOCYSTIS JIROVECI 2020-09-30 21:25:00 Chano Willams [facility] sity [facility] QUANT, BAL [facility] CYTOLOGY NON-FEED GRINDER 2020-09-30 21:17:00 Chano Willams [facility] INTERPRETATION [facility] XR CHEST 1 VW PORTABLE 2020-09-30 20:30:10 Chano Willams [facility] HEPATITIS B SURFACE 2020-09-30 18:36:00 Shraddha Nunn [facility] ANTIGEN, SERUM [facility] LACTIC ACID, VENOUS 2020-09-30 18:36:00 Chano Willams [facility] HEPATITIS B SURFACE AG 2020-09-30 18:36:00 [facility] W/CONFIRM [facility] [place] INSERT NON-TUNNEL CV 2020-09-30 17:15:00 Chano Willams [facility] CATH [facility] [place] INSERT 2020-09-30 17:15:00 Chano Willams [place] [facility] CATH,ART,CUTDOWN,SHORTTERM MD [facility] [place] CHG US GUIDE, VASCULAR 2020-09-30 17:15:00 [facility] ARTERIAL BLOOD GAS 2020-09-30 17:12:00 [facility] POC GLUCOSE SCREEN 2020-09-30 16:50:00 Randolph Payne [facility] TRANSFUSE FRESH FROZEN 2020-09-30 16:42:00 Chano Willams [facility] BASIC METABOLIC PANEL, 2020-09-30 15:48:00 Chano Willams [facility] CALCIUM IONIZED [facility] MAGNESIUM LEVEL 2020-09-30 15:48:00 Chano Willams [place] [facility] PHOSPHORUS LEVEL 2020-09-30 15:48:00 Chano Willams [facility] COMPLETE BLOOD COUNT W/ 2020-09-30 15:48:00 Chano Willams [facility] INDICES [facility] GLUCOSE LEVEL 2020-09-30 15:48:00 Chano Willams o f [facility] BLOOD UREA NITROGEN 2020-09-30 15:48:00 [facility]EL 2020-09-30 15:48:00 Chano Willams [facility] SERUM CREATININE 2020-09-30 15:48:00 Chano Willams [facility] .GLOMERULAR FILTRATION 2020-09-30 15:48:00 [facility] CALCIUM IONIZED, VENOUS 2020-09-30 15:48:00 Chano Willams [facility] XR CHEST 1 VW 2020-09-30 14:42:55 Chano Willams [facility] PREPARE FRESH FROZEN 2020-09-30 11:20:00 Chano Willams [facility] PLASMA [facility] FFP PRODUCT READY FOR PICK 2020-09-30 11:20:00 [facility] UP [facility] POC GLUCOSE SCREEN 2020-09-30 11:18:00 Randolph Payne y [facility] GENERAL LABORATORY ADD ON 2020-09-30 11:11:00 [facility] COMPLETE BLOOD COUNT W/ 2020-09-30 07:54:00 Chano Willams [facility] DIFFERENTIAL [facility] BASIC METABOLIC PANEL, 2020-09-30 07:54:00 Chano Willams [facility] CALCIUM IONIZED [facility] MAGNESIUM LEVEL 2020-09-30 07:54:00 Chano Willams [facility] PHOSPHORUS LEVEL 2020-09-30 07:54:00 Imer [facility] CARDIAC PANEL 2020-09-30 07:54:00 Karyn Andre [facility] VENOUS BLOOD GAS 2020-09-30 07:54:00 Karyn Andre [facility] PROTHROMBIN TIME 2020-09-30 07:54:00 Yuriy Parker [facility] APTT 2020-09-30 07:54:00 Yuriy Parker [facility] Results CBC 2020-09-30 07:54:00 Imer [facility] MANUAL DIFFERENTIAL 2020-09-30 07:54:00 Imer Chano [facility] GLUCOSE LEVEL 2020-09-30 07:54:00 Imer [facility] BLOOD UREA NITROGEN 2020-09-30 07:54:00 Chano Willams [facility] ELECTROLYTE PANEL 2020-09-30 07:54:00 Imer [facility] SERUM CREATININE 2020-09-30 07:54:00 Imer [facility] .GLOMERULAR FILTRATION 2020-09-30 07:54:00 Chano Willams [facility] CALCIUM IONIZED, VENOUS 2020-09-30 07:54:00 Imer Chano [facility] ALBUMIN LEVEL 2020-09-30 07:54:00 Randolph Payne [facility] ALKALINE PHOSPHATASE 2020-09-30 07:54:00 Randolph Payne [facility] ALANINE AMINOTRANSFERASE 2020-09-30 07:54:00 Randolph Payne [facility] ASPARTATE AMINOTRANSFERASE 2020-09-30 07:54:00 Randolph [facility] TOTAL PROTEIN 2020-09-30 07:54:00 Randolph Payne [facility] FRACTIONATED BILIRUBIN 2020-09-30 07:54:00 Randolph Payne [facility] XR CHEST 1 VW PORTABLE 2020-09-30 06:08:59 Yuriy Parker [facility] POC GLUCOSE SCREEN 2020-09-30 04:38:00 Randolph Payne [facility] POC GLUCOSE SCREEN 2020-09-29 22:06:00 Randolph Payne [facility] CARDIAC PANEL 2020-09-29 20:28:00 Karyn Andre [facility] BASIC METABOLIC PANEL, 2020-09-29 20:28:00 Chano Willams [facility] CALCIUM IONIZED [facility] MAGNESIUM LEVEL 2020-09-29 20:28:00 Imer Chano [facility] PHOSPHORUS LEVEL 2020-09-29 20:28:00 Imer [facility] GLUCOSE LEVEL 2020-09-29 20:28:00 Chano Willams [facility] BLOOD UREA NITROGEN 2020-09-29 20:28:00 Chano Willams [facility] ELECTROLYTE PANEL 2020-09-29 20:28:00 Chano Willams [facility] SERUM CREATININE 2020-09-29 20:28:00 Imer Chano [facility] .GLOMERULAR FILTRATION 2020-09-29 20:28:00 Chano Willams [facility] RATE [facility] CALCIUM IONIZED, VENOUS 2020-09-29 20:28:00 Chano Willams [facility] FIBRINOGEN ACTIVITY 2020-09-29 19:30:00 Chano Willams [facility] COMPLETE BLOOD COUNT W/ 2020-09-29 19:30:00 Chano Willams [facility] CALCIUM IONIZED, VENOUS 2020-09-29 19:30:00 Chano Willams [facility] Results CBC 2020-09-29 19:30:00 Chano Willams [place] [facility] DIFFERENTIAL CANCEL 2020-09-29 19:30:00 Chano Willams [facility] VENOUS BLOOD GAS 2020-09-29 17:13:00 Karyn Andre [facility] COMPLETE BLOOD COUNT W/ 2020-09-29 17:13:00 Chano Willams [facility] BASIC METABOLIC PANEL, 2020-09-29 17:13:00 [facility] CALCIUM IONIZED [facility] MAGNESIUM LEVEL 2020-09-29 17:13:00 Imer Chano [facility] PHOSPHORUS LEVEL 2020-09-29 17:13:00 Imer [facility] CALCIUM IONIZED, VENOUS 2020-09-29 17:13:00 Chano Willams [facility] Results CBC 2020-09-29 17:13:00 Chano Willams [facility] GLUCOSE LEVEL 2020-09-29 17:13:00 Chano Willams [facility] BLOOD UREA NITROGEN 2020-09-29 17:13:00 Chano Willams [facility] ELECTROLYTE PANEL 2020-09-29 17:13:00 Imer Chano [facility] SERUM CREATININE 2020-09-29 17:13:00 Imer [facility] .GLOMERULAR FILTRATION 2020-09-29 17:13:00 Chano [facility] RATE [facility] DIFFERENTIAL CANCEL 2020-09-29 17:13:00 Chano [facility] URINALYSIS WITH 2020-09-29 16:51:00 Bud Jarrett [facility] MICROSCOPIC IF INDICATED Junior Thompson [facility] URINALYSIS MICROSCOPIC 2020-09-29 16:51:00 Bud Jarrett [facility] Junior [facility] ECHOCARDIOGRAM 2D LIMITED 2020-09-29 16:24:44 Karyn Andre [facility] - FOLLOW UP [facility] POC GLUCOSE SCREEN 2020-09-29 16:08:00 Randolph aPyne [facility] BASIC METABOLIC PANEL, 2020-09-29 13:18:00 Karyn Andre [facility] CALCIUM IONIZED [facility] CARDIAC PANEL 2020-09-29 13:18:00 Karyn Andre [facility] MAGNESIUM LEVEL 2020-09-29 13:18:00 Karyn Andre [facility] PHOSPHORUS LEVEL 2020-09-29 13:18:00 Karyn Andre [facility] HEPATIC FUNCTION PANEL 2020-09-29 13:18:00 Karyn Andre [facility] GLUCOSE LEVEL 2020-09-29 13:18:00 Karyn Andre [facility] BLOOD UREA NITROGEN 2020-09-29 13:18:00 Karyn Andre [facility] ELECTROL[facility]TE PANEL 2020-09-29 13:18:00 Karyn Andre [facility] SERUM CREATININE 2020-09-29 13:18:00 Karyn Andre [facility] .GLOMERULAR FILTRATION 2020-09-29 13:18:00 Karyn Andre niversjax [facility] RATE [facility] ALBUMIN LEVEL 2020-09-29 13:18:00 Karyn [facility] ALKALINE PHOSPHATASE 2020-09-29 13:18:00 [facility] ALANINE AMINOTRANSFERASE 2020-09-29 13:18:00 Karyn Andre [facility] ASPARTATE AMINOTRANSFERASE 2020-09-29 13:18:00 Karyn Andre [facility] TOTAL PROTEIN 2020-09-29 13:18:00 Karyn [facility] FRACTIONATED BILIRUBIN 2020-09-29 13:18:00 Karyn [facility] BLOODCULTURE 2020-09-29 13:10:00 Karyn Andre [facility] TYPE AND SCREEN 2020-09-29 13:10:00 Karyn Andre [facility] ABORH 2020-09-29 13:10:00 Karyn Andre [facility] ANTIBODY SCREEN 2020-09-29 13:10:00 Karyn Andre [facility] CLOT EXPIRATION DATE 2020-09-29 13:10:00 Karyn Andre [facility] TMP INTERPRETATION 2020-09-29 13:10:00 Karyn Andre [facility] ANTIBODY SCREEN NEGATIVE MD Thompson [facility] RESPIRATORY VIRAL PANEL + 2020-09-29 12:21:00 Marty Jarrett [facility] COVID-19, NASOPHARYNGEAL Junior Thompson [facility] Cancer [facility] Center BLOODCULTURE 2020-09-29 11:30:00 Karyn Andre [facility] ARTERIAL BLOOD GAS 2020-09-29 11:26:00 Karyn Andre [facility] XR CHEST 1 VW 2020-09-29 11:21:00 Karyn [facility] POC GLUCOSE SCREEN 2020-09-29 11:15:00 Bud Jarrett [facility] VRE CULTURE 2020-09-29 11:07:00 Karyn Andre [facility] er Center EKG, 12-LEAD (PORTABLE) 2020-09-29 00:00:00 Karyn Andre [facility] er Center OSI CHEST 2020-09-28 16:51:00 Hayden [facility] er Center COVID-19 (ID NOW RAPID 2020-01-29 16:36:00 Nicole Cheek [facility] TESTING) Medical Branch DME/SUPPLY JUSTIFICATION 2019-09-19 05:01:00 Doctor Unassigned, No [facility] Name Medical Branch DME/SUPPLY JUSTIFICATION 2019-07-17 05:01:00 Doctor Unassigned, No [facility] Repair of knee collateral 1973[birth year]03-27 00:00:00 Me morial Ty ligaments Plan of Care Planned Activity Planned Date Details Comments Source Future Scheduled 2022-11-25 Influenza Vaccine (#1) [facility] 00:00:00 [code = Influenza Medical Ce nter Vaccine (#1)] Future Scheduled 2022-11-25 Influenza Vaccine (#1) [facility] 00:00:00 [code = Influenza Medical Ce nter Vaccine (#1)] Future Scheduled 2022-06-03 COVID-19 Vaccination [facility] Test 19:40:40 (#1) [code = COVID-19 [facility] (#1)] Center Future Scheduled 2022-06-03 COVID-19 Vaccination [facility] Test 19:40:40 (#1) [code = COVID-19 [facility]ination (#1)] Center Future Scheduled 2022-03-[address] [facility] Test 00:00:00 (12+) [code = Medical Center DEPRESSION SCREENING (12+)] Future Scheduled 2022-03-27 FALLS RISK SCREENING [facility] Test 00:00:00 [code = FALLS RISK Medical C enter SCREENING] Future Scheduled 2022-03-[address] [facility] Test 00:00:00 (12+) [code = Medical Center DEPRESSION SCREENING (12+)] Future Scheduled 2022-03-27 FALLS RISK SCREENING [facility] Test 00:00:00 [code = FALLS RISK Medical C enter SCREENING] Future Scheduled 2021-11-25 INFLUENZA VACCINE (#1) C [...] erson [facility] Vaccination (#1)] Center Future Scheduled 2021-09-[address] [facility] Test 00:00:00 [facility]ing [facility] Cente r Screening (12+) [code = Tobacco Cessation Counseling and Screening (12+)] Future Scheduled 2021-09-[address] [facility] Test 00:00:00 [facility] Screening (12+) [code = Tobacco Cessation Counseling and Screening (12+)] Future Scheduled 2021-06-[address] [facility] Test 00:00:00 WELLNESS (YEAR 2 or Medical Center FIRST YEAR if no IPPE) [code = MEDICARE ANNUAL WELLNESS (YEAR 2 or FIRST YEAR if no IPPE)] Future Scheduled 2021-06-[address] [facility] Test 00:00:00 WELLNESS (YEAR 2 or Medical Center FIRST YEAR if no IPPE) [code = MEDICARE ANNUAL WELLNESS (YEAR 2 or FIRST YEAR if no IPPE)] Future Scheduled 2021-06-[address] [...] (2 - PPSV23 or PCV20)] Future Scheduled 2017-06-30 PNEUMOCOCCAL 65+ YRS [facility] Test 00:00:00 (2 - PPSV23 if Medical Cente r available, else PCV20) [code = PNEUMOCOCCAL 65+ YRS (2 - PPSV23 if available, else PCV20)] Future Scheduled 2017-06-30 PNEUMOCOCCAL 65+ YRS [facility] Test 00:00:00 (2 - PPSV23 if Medical Cente r available, else PCV20) [code = PNEUMOCOCCAL 65+ YRS (2 - PPSV23 if available, else PCV20)] Future Scheduled 1998 SHINGLES VACCINES ([address] [facility] Test 00:00:00 of 2) [code = SHINGLES Medic al Center VACCINES (1 of 2)] Future Scheduled 1998 SHINGLES VACCINES ([address] [facility] Test 00:00:00 of 2) [code = SHINGLES Medic al Center VACCINES (1 of 2)] Future Scheduled 1998 SHINGLES VACCINES ([address] [facility] Test 00:00:00 of 2) [code = SHINGLES Medic al Center VACCINES (1 of 2)] Future Scheduled 1967-10-09 DTAP/TDAP/TD [facility]ACCINES [facility] Test 00:00:00 (1 - Tdap) [code = Medical C enter DTAP/TDAP/TD VACCINES (1 - Tdap)] Future Scheduled 1967-10-09 DTAP/TDAP/TD [facility]ACCINES [facility] Test 00:00:00 (1 - Tdap) [code = Medical C enter DTAP/TDAP/TD VACCINES (1 - Tdap)] Future Scheduled 1967-10-09 DTAP/TDAP/TD [facility]ACCINES [facility] 00:00:00 (1 - Tdap) [code = Medical C enter DTAP/TDAP/TD VACCINES (1 - Tdap)] Future Scheduled 1966 HE[facility]ITIS C [facility]CRE[facility]ING [facility] 00:00:00 [code = HEPATITIS C Medical Center SCREENING] Future Scheduled 1966 [facility]ITIS C [facility] 00:00:00 [code = HEPATITIS C Medical Center SCREENING] Future Scheduled 1966 HE[facility]ITIS C [facility] 00:00:00 [code = HEPATITIS C Medical Center SCREENING] Future Scheduled 1949-04-10 COVID-19 VACCINE (#1) [facility] Test 00:00:00 [code = COVID-[address] VACCINE (#1)] Future Scheduled 1949-04-10 COVID-19 VACCINE (#1) [facility] 00:00:00 [code = COVID-[address] VACCINE (#1)] Future Scheduled 1949-04-10 COVID-19 VACCINE (#1) [facility] Test 00:00:00 [code = COVID-[address] VACCINE (#1)] Future Scheduled [address] [facility] Test 00:00:00 (combo) [code = CT Medical C enter Colonography (combo)] Future Scheduled [address] [facility] Test 00:00:00 malignant neoplasm of Medica l Center colon (procedure) [code = 686887459] Future Scheduled [address] [facility] Test 00:00:00 malignant neoplasm of [facility]ica [facility] Center colon (procedure) [code = 992404930] Future Scheduled [address] [facility] Test 00:00:00 malignant neoplasm of [facility]ica [facility] Center colon (procedure) [code = 861565964] Future Scheduled [address] [facility] Test 00:00:00 malignant neoplasm of Medica l Center colon (procedure) [code = 903337483] Future Scheduled 1948 Sigmoidoscopy [code = [facility] S[facility]oidoscopy] Medical Cente r Future Scheduled [address] [facility] Test 00:00:00 (combo) [code = CT Medical C enter Colonography (combo)] Future Scheduled [address] [facility] Test 00:00:00 malignant neoplasm of Medica l Center colon (procedure) [code = 920042511] Future Scheduled [address] [facility] Test 00:00:00 malignant neoplasm of Medica [facility] Center colon (procedure) [code = 144836708] Future Scheduled [address] [facility] Test 00:00:00 malignant neoplasm of Medica l Center colon (procedure) [code = 569533546] Future Scheduled [address] [facility] Test 00:00:00 malignant neoplasm of Medica l Center colon (procedure) [code = 994945949] Future Scheduled 1948 Sigmoidoscopy [facility]code [facility] S[facility]oscopy] Medical Cente r Future Scheduled [address] [facility] Test 00:00:00 malignant neoplasm of Medica l Center colon (procedure) [code = 081745182] Future Scheduled [address] [facility] Test 00:00:00 malignant neoplasm of Medica [facility] Center colon (procedure) [code = 404993461] Future Scheduled [address] [facility] Test 00:00:00 malignant neoplasm of Medica l Center colon (procedure) [code = 129167923] Future Scheduled [address] [facility] Test 00:00:00 malignant neoplasm of Medica l Center colon (procedure) [code = 314177512] Future Scheduled 1948 Sigmoidoscopy [facility]code [facility] 00:[facility] S[facility]oidoscopy] Medical Cente r Future Scheduled [address] [facility] Test 00:00:00 (combo) [code = CT Medical C enter Colonography (combo)] Encounters Start End Encounter Admission Attending Care Care Encounter Source Date/Time Date/Time Type Type Clinicians Facility Department ID 2021-08-10 Outpatient Veliz, STLMLC STLMLC [id number] Common 09:07:[address] [facility] 2021-04-22 Outpatient 3 [id number] ENCPL JAZMÍN [id number] [facility] 12:42:06 [facility] [place] [facility] 2021-04-22 Outpatient 3 [id number] ENCPL REF [facility] 12:40:14 0809 [facility] [place] 2021-04-22 Outpatient 3 [id number] ENCPL PUL [facility] 12:39:34 0807 [facility] [place] 2021-04-22 Outpatient 3 [id number] ENCPL REF [facility] 12:38:17 0804 [facility] [place] 2021-04-22 Outpatient 3 [id number] ENCPL REF [facility] 12:38:06 0803 [facility] 2021-04-21 [facility] [id number] Common 13:20:21 Ray [id number] [facility] 2021-04-21 [facility] [id number] Common 13:18:24 Ray [id number] [facility] 2021-04-21 [facility] [id number] Common 12:28:07 Ray [id number] [facility] 2021-04-21 [facility] [id number] Common 11:59:29 [id number] [facility] 2021-01-02 Inpatient RASLAN, SLE Surgery [id number] SLEH 11:38:46 NINA 2021-01-02 Inpatient ER NASSER, [facility] Cardiac ICU [id number] [facility] 11:38:15 [facility] 2020-10-19 Outpatient SYSTEM, JUDITH WONG [id number] 07:44:13 PROVIDER Herman archuleta 2020-09-25 Outpatient PISIMISIS, JUDITH Thoracic [id number] 08:45:30 BETH archuleta 2020-09-03 Outpatient SYSTEM, JUDITH WONG [id number] 11:18:01 PROVIDER Herman archuleta 2022-10-17 2022-10-17 Orders Doctor ZAVALA 1.2.840.114 [id number] Univers 00:00:00 00:00:00 Only Unassigned, SAMANTHA 350.1.13.10 ity of [place] [facility] 4.2.7.2.686 Lavell as [phone] [facility] michael 009 [place] 2021-12-08 2021-12-08 OFFICE [facility] [id number] Co mmon 00:00:00 00:00:00 VISIT EST Spir it PT LEVEL 3 - [facility] 2021-04-16 2021-04-16 Orders Neymar, 1.2.840.1 [id number] Univers 00:00:00 00:00:00 Only Kimberlee 27555.1.1 ity of Sue 3.412.2.7 [place] .3.874604 MD Correa8 [facility] 2021-03-16 2021-03-16 Telemedici Vesta Trinh 1.2.840.1 [id number] Univers 11:30:00 11:45:00 ne Katelin Ceja 04015.1.1 ity of 3.412.2.7 [place] .3.805765 MD Neves [facility] 2020-12-25 2020-12-25 Orders Neymar, 1.2.840.1 [id number] Univers 00:00:00 00:00:00 Only Kimberlee 42698.1.1 ity of Sue 3.412.2.7 [place] .3.116558 MD Neves [facility] 2020-12-23 2020-12-23 Telemedici VITA Smith 1.2.840.1 [id number] Univers 09:30:00 09:45:47 ne Dru 58979.1.1 ity of 3.412.2.7 [place] .3.353061 MD Correa8 [facility] 2020-12-22 2020-12-22 Yoly Dalal 1.2.840.1 [id number] Univers 00:00:00 00:00:00 Bailey Villagomez 31006.1.1 ity of 3.412.2.7 [place] .3.008258 MD Correa8 [facility] 2020-12-16 2020-12-16 Telemedici VITA Smith, 1.2.840.1 [id number] Univers 09:15:00 09:30:00 ifeoma Gonsales 74083.1.1 ity of 3.412.2.7 [place] .3.447590 MD Neves [facility] 2020-12-15 2020-12-15 Telephone Dalal, 1.2.840.1 [id number] 1 [id number] Univers 00:00:00 00:00:00 Bailey Villagomez 87289.1.1 ity of 3.412.2.7 [place] .3.893857 MD Correa8 [facility] 2020-12-14 2020-12-14 Documentat Shank, 1.2.840.1 [id number] Univers 00:00:00 00:00:00 ion Princess Atwood 48474.1.1 ity of 3.412.2.7 [place] .3.596880 MD Correa8 [facility] 2020-12-09 2020-12-09 Telephone Cj, 1.2.840.1 [id number] Univers 00:00:00 00:00:00 Antonette Carney 47057.1.1 ity of 3.412.2.7 [place] .3.352609 MD Neves [facility] 2020-12-07 2020-12-07 [facility] Nissa Carpenter 1.2.840.1 [id number] Univers 23:59:00 23:59:00 Latisha London 59265.1.1 ity of 3.412.2.7 [place] .3.795081 MD Neves [facility] 2020-12-07 2020-12-07 Telemedici Dru Luther 1.2.840.1 [id number] Univers 10:30:00 11:00:00 Swapnil Servin 81340.1.1 ity of 3.412.2.7 [place] .3.017283 MD Correa8 [facility] 2020-12-07 2020-12-07 Orders Knight, 1.2.840.1 [id number] Univers 00:00:00 00:00:00 Only Vesta 20353.1.1 ity of 3.412.2.7 [place] .3.963330 MD Neves [facility] 2020-12-07 2020-12-07 Telephone Corona, 1.2.840.1 [id number] 10 [id number] Univers 00:00:00 00:00:00 Antonette C 02672.1.1 ity of 3.412.2.7 [place] .3.301589 MD Correa8 [facility] 2020-12-07 2020-12-07 Telephone Corona, 1.2.840.1 [id number] 10 [id number] Univers 00:00:00 00:00:00 Antonette C 24249.1.1 ity of 3.412.2.7 [place] .3.418353 MD Neves [facility] 2020-12-07 2020-12-07 Telephone Lit, 1.2.840.1 [id number] Univers 00:00:00 00:00:00 Fartun Jones 43498.1.1 ity of 3.412.2.7 [place] .3.896643 MD Neves [facility] 2020-12-03 2020-12-03 [facility] 1.2.840.1 [id number] 1 [id number] Univers 10:20:00 23:59:00 Mayra vilchis 74460.1.1 it y of Yomaira F 3.412.2.7 [place] .3.041125 MD Correa8 [facility] [place] 2020-12-02 2020-12-02 Telemedici VITA Smith, 1.2.840.1 [id number] Univers 09:00:00 10:36:59 ifeoma Gonsales 20063.1.1 ity of 3.412.2.7 [place] .3.722716 MD Correa8 [facility] [place] 2020-12-01 2020-12-01 Telephone Mulugeta, 1.2.840.1 [id number] 1 [id number] Univers 00:00:00 00:00:00 Bailey G 62726.1.1 ity of 3.412.2.7 [place] .3.507525 MD Correa8 [facility] 2020-12-01 2020-12-01 Case Phong, 1.2.840.1 [id number] Univers 00:00:00 00:00:00 Management Alyssa Glover 39371.1.1 ity of 3.412.2.7 [place] .3.694250 MD Correa8 [facility] 2020-11-25 2020-11-25 Telemedici VITA Smith, 1.2.840.1 [id number] [id number] Univers 09:15:00 09:44:59 ne Dru 10715.1.1 ity of 3.412.2.7 [place] .3.588292 MD Correa8 [facility] 2020-11-24 2020-11-24 Telephone Mulugeta, 1.2.840.1 [id number] 1 [id number] Univers 00:00:00 00:00:00 Bailey Villagomez 26123.1.1 ity of 3.412.2.7 [place] .3.644015 MD Correa8 [facility] 2020-11-16 2020-11-16 Telemedici VITA Blackmon, 1.2.840.1 [id number] Univers 13:45:00 13:45:00 ifeoma Mohan 85539.1.1 ity of Sue 3.412.2.7 [place] .3.162699 MD Correa8 [facility] 2020-11-16 2020-11-16 Documentat Herber, 1.2.840.1 [id number] [id number] Univers 00:00:00 00:00:00 ion Armando 11436.1.1 ity of Shahwar 3.412.2.7 [place] .3.592418 MD Correa8 [facility] 2020-09-29 2020-11-14 [facility] Bud Mae 1.2.840.1 [id number] Univers 05:35:00 14:35:00 [facility] Randolph Payne 32219.1.1 ity of [place] P 3.412.2.7 [place] Darryl Banerjee .3.843154 Aimee Blake [facility] .8 A mariojuanaRandolph Wick n [facility] 2020-11-14 2020-11-14 Orders Wolf, 1.2.840.1 [id number] Univers 00:00:00 00:00:00 Only Elizabeth 29819.1.1 ity of 3.412.2.7 [place] .3.139463 MD Correa8 [facility] 2020-11-13 2020-11-13 Orders Maverick, 1.2.840.1 [id number] 10 [id number] Univers 00:00:00 00:00:00 Only Charito Watts 53850.1.1 it y of 3.412.2.7 [place] .3.749694 .8 [facility] 2020-11-13 2020-11-13 Orders Prince, 1.2.840.1 [id number] Univers 00:00:00 00:00:00 Only Denny Vidales 47655.1.1 ity of 3.412.2.7 [place] .3.224760 MD Correa8 [facility] 2020-11-13 2020-11-13 Orders Eugene, 1.2.840.1 [id number] Univers 00:00:00 00:00:00 Only Vesta 55851.1.1 ity of 3.412.2.7 [place] .3.233027 MD Correa8 [facility] 2020-11-13 2020-11-13 Orders Galileo 1.2.840.1 [id number] Univers 00:00:00 00:00:00 Only Yanet Garcia 76129.1.1 it y of 3.412.2.7 [place] .3.964398 MD Correa8 [facility] 2020-11-12 2020-11-12 Orders Beck Martines 1.2.840.1 [id number] Univers 00:00:00 00:00:00 Only L 40311.1.1 ity of 3.412.2.7 [place] .3.550284 .8 [facility] 2020-11-10 2020-11-10 Inpatient VITA BLAKE MDA [facility] [id number] MD 07:27:45 07:36:[address] [facility] 2020-11-10 2020-11-10 Inpatient VITA BLAKE MDA [facility] [id number] 05:05:38 05:30:57 [facility] Dereck so 2020-11-09 2020-11-09 Orders Breezy, 1.2.840.1 [id number] Univers 00:00:00 00:00:00 Only Ermiasmir 03918.1.1 ity of 3.412.2.7 [place] .3.157659 .8 [facility] 2020-11-05 2020-11-05 Telephone Yue, 1.2.840.1 [id number] [id number] Univers 00:00:00 00:00:00 Evi 94780.1.1 it y of 3.412.2.7 [place] .3.594040 MD Correa8 [facility] 2020-11-03 2020-11-03 Inpatient VITA SMITH JUDITH MDA [id number] 17:09:05 17:11:49 DRU archuleta 2020-11-03 2020-11-03 Orders Hayden, 1.2.840.1 [id number] Univers 00:00:00 00:00:00 Only Preeteslionel 75655.1.1 ity of 3.412.2.7 [place] .3.970406 MD Correa8 [facility] 2020-11-02 2020-11-02 Inpatient VITA COYNE JUDITH [facility] [id number] MD 09:12:55 11:22:21 CJ archuleta 2020-10-30 2020-10-30 Orders Francisca, 1.2.840.1 [id number] Univers 00:00:00 00:00:00 Only Geena 73073.1.1 ity of 3.412.2.7 [place] .3.993009 .8 [facility] 2020-10-29 2020-10-29 Inpatient VITA BLAKE JUDITH WONG [id number] 19:40:38 20:05:18 [facility] Dereck so geremias 2020-10-29 2020-10-29 Inpatient VITA SMITH JUDITH WONG [id number] 01:03:56 01:04:07 [facility] Herman o geremias 2020-10-29 2020-10-29 Orders Malini, 1.2.840.1 [id number] Univers 00:00:00 00:00:00 Only Denny 32038.1.1 ity of 3.412.2.7 [place] .3.143522 MD Correa8 [facility] 2020-10-27 2020-10-27 Ancillary VITA Blake, 1.2.840.1 [id number] [id number] Univers 20:00:00 20:05:00 [facility] 48113.1.1 i ty of 3.412.2.7 [place] .3.924867 .8 [facility] 2020-10-27 2020-10-27 Inpatient VITA JUDITH SMITH MDA [id number] 13:50:26 13:50:31 DRU Sutton o geremias 2020-10-26 2020-10-26 Inpatient VITA SMITH MDA MDA [id number] MD 14:48:05 14:48:09 [facility] Herman o geremias 2020-10-26 2020-10-26 Orders Nas, 1.2.840.1 [id number] Univers 00:00:00 00:00:00 Only Mari Gallagher 64433.1.1 ity of 3.412.2.7 [place] .3.749608 MD Correa8 [facility] 2020-10-23 2020-10-23 Orders Guzman, 1.2.840.1 [id number] Univers 00:00:00 00:00:00 Only Cj 84513.1.1 ity of 3.412.2.7 [place] .3.117668 .8 [facility] 2020-10-22 2020-10-22 Inpatient RANDOLPH BEAULIEU MDA MDA [id number] 20:34:15 21:15:34 Herman o n 2020-10-15 2020-10-15 Inpatient VITA SMITH, MDA MDA [id number] 14:20:34 14:20:37 [facility] Herman o n 2020-10-13 2020-10-13 Inpatient VITA SMITH, MDA MDA [id number] 13:41:07 13:41:09 [facility] Hreman o n 2020-10-10 2020-10-10 Inpatient EL AMANDA, MDA MDA [id number] 14:30:49 14:34:36 KIARA Dereck so n 2020-10-05 2020-10-05 Inpatient VITA KRUGER, MDA MDA [id number] 21:05:33 21:30:04 MIGDALIA Dereck so n 2020-10-02 2020-10-02 [facility] Darrell 1.2.840.1 [id number] [facility] 00:00:00 00:00:00 Only Kylie Yu 73410.1.1 ity of 3.412.2.7 [place] .3.546017 .8 [facility] 2020-09-30 2020-09-30 Inpatient VITA QUEEN, MDA MDA [id number] 20:34:19 21:12:40 JURGEN Warders o n 2020-09-30 2020-09-30 Inpatient EL IMER, MDA MDA [id number] 16:35:16 16:35:21 CHANO Herman o n 2020-09-30 2020-09-30 Inpatient RANDOLPH BEAULIEU MDA MDA [id number] 14:38:47 15:31:40 Herman o n 2020-09-30 2020-09-30 Inpatient EL IMER, MDA MDA [id number] 14:21:19 15:31:37 CHANO Herman o n 2020-09-29 2020-09-29 [facility] 1.2.840.1 1.2.499.194 [id number] Univers 00:00:00 00:00:00 01967.1.1 350.1.13.41 ity of 3.412.2.7 [place].698 [place] .3.0175[place] 084.8 .8 Camryn archuleta [facility] 2020-09-17 2020-09-23 Inpatient VITA BLAKE, MDA Lymphoma/My [id number] 12:22:00 17:54:00 KRISTINA Harden so n 2020-09-23 2020-09-23 Inpatient VITA BLAKE, MDA MDA [id number] 17:09:44 17:43:35 [facility] 2020-09-23 2020-09-23 Inpatient VITA BLAKE, MDA MDA [id number] 17:24:14 17:24:18 [facility] Harden so n 2020-09-23 2020-09-23 Inpatient VITA PRIEST, MDA MDA [id number] 14:55:27 15:19:17 ESTELLA archuleta 2020-09-18 2020-09-18 Inpatient VITA SMITH, MDA MDA [id number] 20:07:46 20:07:49 DRU archuleta 2020-09-17 2020-09-17 Inpatient VITA CAMPOS, MDA MDA [id number] 22:31:02 23:36:29 ELISA archuleta 2020-09-17 2020-09-17 Inpatient VITA BLAKE, MDA MDA [id number] 19:51:09 19:51:13 KRISTINA Harden so geremias 2020-09-16 2020-09-16 Outpatient VITA SMITH, MDA MDA [id number] 12:54:09 16:41:32 DRU archuleta 2020-09-16 2020-09-16 Outpatient VITA ALFARO JR, MDA MDA [id number] 10:58:41 10:58:41 MILAGRO archuleta 2020-09-16 2020-09-16 Outpatient VITA ALDRICH, MDA MDA [id number] 09:08:16 09:08:16 JESENIA archuleta 2020-09-15 2020-09-15 Outpatient VITA ARRIOLA MDA MDA [id number] 18:51:00 23:59:00 NAS archuleta 2020-09-15 2020-09-15 Outpatient VITA ARRIOLA MDA MDA [id number] 18:38:00 18:50:00 NAS archuleta 2020-09-11 2020-09-11 Emergency ER [facility] Emergency [id number] [facility] 09:39:00 09:39:00 2020-09-07 2020-09-07 Emergency ER [facility] Emergency [id number] [facility] 13:22:00 13:22:00 2020-09-07 2020-09-07 Outpatient VITA ALFARO JR MDA MDA [id number] 12:27:14 12:27:14 MILAGRO archuleta 2020-09-07 2020-09-07 Outpatient VITA WONG MDA [id number] 12:21:08 12:21:08 Herman archuleta 2020-09-05 2020-09-05 Outpatient VITA WRAY MDA MDA [id number] 13:30:27 13:43:02 ANGELO archuleta 2020-08-18 2020-08-18 Outpatient STLMLC STLMLC [id number] Common 00:00:00 00:00:00 [facility] 2020-08-17 2020-08-17 Outpatient STLMLC STLMLC [id number] Common 00:00:00 00:00:00 [facility] 2020-08-13 2020-08-13 Outpatient STLMLC STLMLC [id number] Common 00:00:00 00:00:00 [facility] 2020-07-13 2020-07-13 Outpatient STLMLC STLMLC [id number] Common 00:00:00 00:00:00 [facility] 2020-06-19 2020-06-19 Outpatient STLMLC STLMLC [id number] Common 00:00:00 00:00:00 [facility] 2020-05-08 2020-05-08 Outpatient STLMLC STLMLC [id number] Common 00:00:00 00:00:00 [facility] 2020-05-01 2020-05-01 Outpatient STLMLC STLMLC [id number] Common 00:00:00 00:00:00 [facility] 2020-04-29 2020-04-29 Outpatient STLMLC STLMLC [id number] Common 00:00:00 00:00:00 [facility] 2020-04-15 2020-04-15 Outpatient STLMLC STLMLC [id number] Common 00:00:00 00:00:00 [facility] 2020-03-02 2020-03-02 Outpatient STLMLC STLMLC [id number] Common 00:00:00 00:00:00 [facility] 2020-02-13 2020-02-13 Outpatient STLMLC STLMLC [id number] Common 00:00:00 00:00:00 [facility] 2020-01-30 2020-01-30 Outpatient R GARRY [facility] [id number] Univers 14:00:00 14:00:00 AFIA camara [facility] 2020-01-29 2020-01-29 Outpatient R NICOLE CHEEK [facility] 10 [id number] Univers 12:15:00 12:15:00 NICOLE CHEEK i [facility] 2020-01-29 2020-01-29 Laboratory Only, [facility] 1.2.840.114 [id number] 10:22:41 10:37:41 Only Test [place] 350.1.13.10 [place] [address] [place] [address] [phone] [facility] 2020-01-29 2020-01-29 Laboratory Only, [facility] Test [facility] 1.2.840. 114 [id number] Univers 10:22:41 10:37:41 Only Nicole Cheek [place] 350.1.13.10 [facility] 4.2.7.2[address] [place] [phone] 2020-01-27 2020-01-27 Outpatient R NICOLE CHEEK [facility] 10 [id number] Univers 09:45:00 09:45:00 NICOLE CHEEK i [facility] 2020-01-21 2020-01-21 Outpatient STLMLC STLMLC [id number] Common 00:00:00 00:00:00 [facility] 2020-01-21 2020-01-21 Outpatient STLMLC STLMLC [id number] Common 00:00:00 00:00:00 [facility] 2020-01-10 2020-01-10 Telephone [facility] [id number] [id number] 00:00:00 00:00:00 Nicole Iglesias 350.1.13.10 [place] 4.2.7.2.686 Professio [phone] nal [address] [place] [address] 2020-01-10 2020-01-10 [email or web address] 1.2.483.922 [id number] Univers 00:00:00 00:00:00 Nicole Iglesias 350.1.13.10 i ty of [place] 4[place]2.7.2.[place] [phone] [place] dical [address] 2019-10-11 2019-10-11 Outpatient R NICOLE CHEEK [facility] 10 [id number] Univers 10:40:00 10:40:00 NICOLE CHEEK i ty of [facility] 2019-09-19 2019-09-19 Orders Doctor SALLY [id number] Univers 00:00:00 00:00:00 Only Unassigned, SAMANTHA 350.1.13.10 [facility]y [facility] [place] [facility] 4.2.7.2.686 [place] as [phone] [address] 2019-07-17 2019-07-17 Orders Doctor SALLY [id number] Univers 00:00:00 00:00:00 Only Unassigned, SAMANTHA 350.1.13.10 [facility] [place] [facility] 4.2.7.2.686 [place] [phone] [address] 2019-07-11 2019-07-11 Outpatient R NICOLE CHEEK [facility] 10 [id number] Univers 10:40:00 10:40:00 NICOLE CHEEK i ty of [facility] 2019-07-11 2019-07-11 [facility]ici [email or web address] [id number] Univers 08:05:50 08:25:50 ne Visit Nicole Iglesias 350.1.13.10 it[place] [phone] Wa rolan nal 5 [facility] 2019-04-25 2019-04-25 Office [facility] 1.2.840.114 [id number] Univers 11:25:55 14:54:38 Visit Nicole Iglesias 350.1.13.10 i ty [place] [phone] Wa rolan lindsey [address] [place] [address] 2019-04-25 2019-04-25 Telephone [facility] [id number] Univers 00:00:00 00:00:00 Nicole Iglesias 350.1.13.10 i ty [place] [phone] Wa robertco césar [address] [place] [address] 2018-12-06 2018-12-06 Office [facility] [id number] [place] [address] 09:26:39 10:12:15 Visit Nicole Iglesias 350.1.13.10 i ty [id number] [phone] Wa robertco césar [address] [place] [address] 2018-08-31 2018-08-31 Telephone [facility] [id number] Univers 00:00:00 00:00:00 Nicole Iglesias 350.1.13.10 i [place] [phone] [facility] nal [address] [place] [address] 2018-01-16 2018-01-18 Outside nullFlavo [facility] [id number] Memoria 18:43:00 04:59:59 Medical r Cardiology 00 l Records [facility] Rafat archuleta 2018-01-16 2018-01-18 Outside nullFlavo [facility] [id number] Memoria 18:43:00 04:59:59 Medical r Cardiology 00 l Records [facility] Rafat archuleta 2018-01-16 2018-01-17 Outpatient [facility] [id number] 13:43:00 23:59:59 00 2016-06-15 2016-07-01 [facility]patient [facility] [id number] Memoria 18:52:00 00:05:00 r Ty 79 l [facility] 2016-06-15 2016-07-01 Inpatient nullFlavo [facility] [id number] Memoria 18:52:00 00:05:00 r [place] 79 l [facility] 2016-06-15 2016-06-30 Outpatient Eugenia Benedict [facility] [id number] 13:52:00 19:05:00 Ana 81 Results Test Description Test Time Test Comments Results Result Comments Source AFB Culture w/Smear 2020-12-11 01:41:50 Test Item Value Reference Range Interpretation Comme nts Final Report (test code = 8488) Acid fast bacilli isolatedIdentific ation 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 The sequencing procedure was developed and itsperformance characteristics determined by [facility] microbiology laboratory. It has not been cleared orapproved by the U.S. Food and Drug Administration Path Review - AFB (test code = 8477) The results have been reviewed and A electronically signed by Pathologist:JYOTI MCCALL MD #[id number] Acid Fast Stain Truant (test code = No Acid Fast Bacilli seen in direct smear A 55783-4) DARCI (test code = DARCI) And RUL Lab Interpretation (test code = Abnormal 83606-4) [facility] [place] Culture w/[id number] 01:41:50 Test Item Value Reference Interpretation Comments Range Final Report (test Acid fast bacilli A code = 8488) isolatedIdentification 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 The sequencing procedure was developed and itsperformance characteristics determined by [facility] microbiology laboratory. It has not been cleared orapproved by the U.S. Food and Drug Administration Path Review - AFB The results have been A (test code = 8477) reviewed and electronically signed by Pathologist:JYOTI MCCALL MD #[id number] Acid Fast Stain No Acid Fast Bacilli seen A Truant (test code = in direct smear 79101-5) DARCI (test code = And RUL DARCI) Lab Interpretation Abnormal (test code = 29994-8) [facility] w/[id number] 01:41:50 Test Item Value Reference Interpretation Comments Range Final Report (test Acid fast bacilli A code = 8488) isolatedIdentification 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 The sequencing procedure was developed and itsperformance characteristics determined by [facility] microbiology laboratory. It has not been cleared orapproved by the U.S. Food and Drug Administration Path Review - AFB The results have been A (test code = 8477) reviewed and electronically signed by Pathologist:JYOTI CMCALL MD #[id number] Acid Fast Stain No Acid Fast Bacilli seen A Truant (test code = in direct smear 43936-5) DARCI (test code = And RUL DARCI) Lab Interpretation Abnormal (test code = 47016-9) [facility] [id number] 19:30:21 Test Item Value Reference Range Interpretation Comments Final Report (test No growth code = 8488) Path Review - Immunity and antibiotic Bottle/Isolator use may render culture (test code = 8499) negative. Ongoing infection requires repeat culture. The results have been reviewed and electronically signed by Pathologist:Mary Last MD, PhD #[id number] DARCI (test code = From PICC line please DARCI) [facility] [id number] 19:30:21 Test Item Value Reference Range Interpretation Comments Final Report (test No growth code = 8488) Path Review - Immunity and antibiotic Bottle/Isolator use may render culture (test code = 8499) negative. Ongoing infection requires repeat culture. The results have been reviewed and electronically signed by Pathologist:Mary Last MD, PhD #[id number] DARCI (test code = From PICC line please DARCI) [facility] [id number] 19:30:21 Test Item Value Reference Range Interpretation Comments Final Report (test No growth code = 8488) Path Review - Immunity and antibiotic Bottle/Isolator use may render culture (test code = 8499) negative. Ongoing infection requires repeat culture. The results have been reviewed and electronically signed by Pathologist:Mary Last MD, PhD #[id number] DARCI (test code = From PICC line please DARCI) [facility] Hospital[facility]ial2021-[facility]-21 14:25:51 Test Item Value Reference Range Interpretation [...] includes Myelocytes. [Automated mess age] The system [employer] generated this result transmitted ref erence range: <=0.0. T he reference range was not used to int erpret this result as normal/abnormal . NRBC (test code = 1.0 See_Comment H [Automate d message] 4250) The system [employer] generated this result transmitted ref erence range: [...] (test code = Present Not Present A 0284) Tear Drop (test code = Present Not Present A 0982) Slide Comments (test See Note A Platele t morphology code = 5447) normal. Lab Interpretation Abnormal (test code = 14288-9) [facility] 14:25:51 Test Item Value Reference Range Interpretation [...] includes Myelocytes. [Automated mess age] The system [employer] generated this result transmitted ref erence range: <=0.0. T he reference range was not used to int erpret this result as normal/abnormal . NRBC (test code = 1.0 See_Comment H [Automate d message] 6472) The system [employer] generated this result transmitted ref erence range: [...] (test code = Present Not Present A 9522) Slide Comments (test See Note A Platele t morphology code = 5447) normal. Lab Interpretation Abnormal (test code = 42129-2) [facility] [id number] 14:25:51 Test Item Value Reference Range Interpretation [...] includes Myelocytes. [Automated mess age] The system [employer] generated this result transmitted ref erence range: <=0.0. T he reference range was not used to int erpret this result as normal/abnormal . NRBC (test code = 1.0 See_Comment H [Automate d message] 6472) The system [employer] generated this result transmitted ref erence range: [...] (test code = Present Not Present A 6692) Slide Comments (test See Note A Platele t morphology code = 5447) normal. Lab Interpretation Abnormal (test code = 14993-7) [facility] [place].[id number] 14:25:49 Test Item Value Reference Range Interpretation Comments WBC (test code = 22.7 K/uL 4.0-11.0 H 6690-2) RBC (test code = 789-8) 2.92 See_Comment L [Au tomated message] The system [employer] generated this result transmitted ref erence range: 4.50 - 6 .00 M/uL. The refer ence range was not u sed to interpret this result as normal/abnor mal. Hgb (test code = 718-7) 8.7 See_Comment L [Au tomated message] The system [employer] generated this result transmitted ref erence range: [...] See_Comment [Automate d message] 786-4) The system [employer] generated this result transmitted ref erence range: 31.0 - 3 6.0 gm/dL. The refe rence range was not u sed to interpret this result as normal/abnor mal. RDW-SD (test code = 55.0 fL 35.1-46.3 H 53881-9) RDW-CV (test code = 16.5 % 12.0-15.5 [...] cell differential. [Automated mess age] The system [employer] generated this result transmitted ref erence range: <=0.0. T he reference range was not used to int erpret this result as normal/abnormal . Lab Interpretation Abnormal (test code = 45957-3) [facility] [place].[id number] 14:25:49 Test Item Value Reference Range Interpretation Comments WBC (test code = 22.7 K/uL 4.0-11.0 H 6690-2) RBC (test code = 789-8) 2.92 See_Comment L [Au tomated message] The system [employer] generated this result transmitted ref erence range: 4.50 - 6 .00 M/uL. The refer ence range was not u sed to interpret this result as normal/abnor mal. Hgb (test code = 718-7) 8.7 See_Comment L [Au tomated message] The system [employer] generated this result transmitted ref erence range: [...] See_Comment [Automate d message] 786-4) The system [employer] generated this result transmitted ref erence range: 31.0 - 3 6.0 gm/dL. The refe rence range was not u sed to interpret this result as normal/abnor mal. RDW-SD (test code = 55.0 fL 35.1-46.3 H 36411-4) RDW-CV (test code = 16.5 % 12.0-15.5 [...] cell differential. [Automated mess age] The system [employer] generated this result transmitted ref erence range: <=0.0. T he reference range was not used to int erpret this result as normal/abnormal . Lab Interpretation Abnormal (test code = 03485-0) [facility] [place].[id number] 14:25:49 Test Item Value Reference Range Interpretation Comments WBC (test code = 22.7 K/uL 4.0-11.0 H 6690-2) RBC (test code = 789-8) 2.92 See_Comment L [Au tomated message] The system [employer] generated this result transmitted ref erence range: 4.50 - 6 .00 M/uL. The refer ence range was not u sed to interpret this result as normal/abnor mal. Hgb (test code = 718-7) 8.7 See_Comment L [Au tomated message] The system [employer] generated this result transmitted ref erence range: [...] See_Comment [Automate d message] 786-4) The system [employer] generated this result transmitted ref erence range: 31.0 - 3 6.0 gm/dL. The refe rence range was not u sed to interpret this result as normal/abnor mal. RDW-SD (test code = 55.0 fL 35.1-46.3 H 09464-0) RDW-CV (test code = 16.5 % 12.0-15.5 [...] cell differential. [Automated mess age] The system [employer] generated this result transmitted ref erence range: <=0.0. T he reference range was not used to int erpret this result as normal/abnormal . Lab Interpretation Abnormal (test code = 30055-2) [facility] [place] [id number] 09:16:35 Test Item Value Reference Range Interpretation Comments Sodium Lvl (test code = 140 See_Comment [Au tomated message] 8468) The system [employer] generated this result transmitted ref erence range: 136 - 14 5 mEq/L. The refe rence range was not u sed to interpret this result as normal/abnor mal. Potassium Lvl (test code 4.2 See_Comment [A utomated message] = 2282) The system [employer] generated this result transmitted ref erence range: 3.5 - 5. 1 mEq/L. The refe rence range was not u sed to interpret this result as normal/abnor mal. Chloride (test code = 100 See_Comment [Auto mated message] 5279) The system [employer] generated this result transmitted ref erence range: 98 - 107 mEq/L. The refe rence range was not u sed to interpret this result as normal/abnor mal. CO2 (test code = 5227) 30 See_Comment H [Aut omated message] The system [employer] generated this result transmitted ref erence range: 22 - 29 mEq/L. The reference r louis was not used to interpret this result as normal/abnor mal. Anion Gap (test code = 10 See_Comment [Aut omated message] 1193) The system [employer] generated this result transmitted ref erence range: 4 - 14 m Eq/L. The reference r louis was not used to interpret this result as normal/abnor mal. Lab Interpretation (test Abnormal code = 93904-3) [facility] [place] [id number] 09:16:35 Test Item Value Reference Range Interpretation Comments Sodium Lvl (test code = 140 See_Comment [Au tomated message] 5156) The system [employer] generated this result transmitted ref erence range: 136 - 14 5 mEq/L. The refe rence range was not u sed to interpret this result as normal/abnor mal. Potassium Lvl (test code 4.2 See_Comment [A utomated message] = 6054) The system [employer] generated this result transmitted ref erence range: 3.5 - 5. 1 mEq/L. The refe rence range was not u sed to interpret this result as normal/abnor mal. Chloride (test code = 100 See_Comment [Auto mated message] 5359) The system [employer] generated this result transmitted ref erence range: 98 - 107 mEq/L. The refe rence range was not u sed to interpret this result as normal/abnor mal. CO2 (test code = 5227) 30 See_Comment H [Aut omated message] The system [employer] generated this result transmitted ref erence range: 22 - 29 mEq/L. The reference r louis was not used to interpret this result as normal/abnor mal. Anion Gap (test code = 10 See_Comment [Aut omated message] 0740) The system [employer] generated this result transmitted ref erence range: 4 - 14 m Eq/L. The reference r louis was not used to interpret this result as normal/abnor mal. Lab Interpretation (test Abnormal code = 82050-4) [facility] Hospital[facility]ro[facility]te [id number] 09:16:35 Test Item Value Reference Range Interpretation Comments Sodium Lvl (test code = 140 See_Comment [Au tomated message] 1069) The system [employer] generated this result transmitted ref erence range: 136 - 14 5 mEq/L. The refe rence range was not u sed to interpret this result as normal/abnor mal. Potassium Lvl (test code 4.2 See_Comment [A utomated message] = 6577) The system [employer] generated this result transmitted ref erence range: 3.5 - 5. 1 mEq/L. The refe rence range was not u sed to interpret this result as normal/abnor mal. Chloride (test code = 100 See_Comment [Auto mated message] 0473) The system [employer] generated this result transmitted ref erence range: 98 - 107 mEq/L. The refe rence range was not u sed to interpret this result as normal/abnor mal. CO2 (test code = 5227) 30 See_Comment H [Aut omated message] The system [employer] generated this result transmitted ref erence range: 22 - 29 mEq/L. The reference r louis was not used to interpret this result as normal/abnor mal. Anion Gap (test code = 10 See_Comment [Aut omated message] 5682) The system [employer] generated this result transmitted ref erence range: 4 - 14 m Eq/L. The reference r louis was not used to interpret this result as normal/abnor mal. Lab Interpretation (test Abnormal code = 27981-8) [facility] HospitalFractionated [id number] 09:16:34 Test Item Value Reference Range Interpretation [...] above 28 g/L. [Automated message] The system [employer] generated this result transmitted ref erence range: [...] (test 0.2 mg/dL 0.0-0.9 code = 5095) [facility] HospitalFractionated [id number] 09:16:34 Test Item Value Reference Range Interpretation [...] above 28 g/L. [Automated message] The system [employer] generated this result transmitted ref erence range: [...] (test 0.2 mg/dL 0.0-0.9 code = 5095) [facility] HospitalFractionated [id number] 09:16:34 Test Item Value Reference Range Interpretation [...] above 28 g/L. [Automated message] The system [employer] generated this result transmitted ref erence range: [...] (test 0.2 mg/dL 0.0-0.9 code = 5095) [facility] HospitalPhosphorus [id number] 09:16:33 Test Item Value Reference Range Interpretation Comments Phosphorus (test code = 6817) 3.5 mg/dL 2.5-4.5 [facility] HospitalPhosphorus [id number] 09:16:33 Test Item Value Reference Range Interpretation Comments Phosphorus (test code = 6817) 3.5 mg/dL 2.5-4.5 [facility] HospitalPhosphorus [id number] 09:16:33 Test Item Value Reference Range Interpretation Comments Phosphorus (test code = 6817) 3.5 mg/dL 2.5-4.5 [facility] HospitalLDH2021-[facility] 09:16:31 Test Item Value Reference Range Interpretation Comments LDH (test code = 6111) 336 U/L 135-225 H Resul ts greater than 1651 U/L may no t be reliable due to matrix effect w ith extended diluti on as it exceeds the enrober s recommended l imit. Caution should be exercised when interpreting matute ch values and done in conjunction wit h clinical contex t. Lab Interpretation (test Abnormal code = 28947-7) [facility]LDH[facility] 09:16:31 Test Item Value Reference Range Interpretation Comments LDH (test code = 6111) 336 U/L 135-225 H Resul ts greater than 1651 U/L may no t be reliable due to matrix effect w ith extended diluti on as it exceeds the enrober s recommended l imit. Caution should be exercised when interpreting matute ch values and done in conjunction wit clinical contex t. Lab Interpretation (test Abnormal code = 11865-7) [facility]LDH2021-[facility] 09:16:31 Test Item Value Reference Range Interpretation Comments LDH (test code = 6111) 336 U/L 135-225 H Resul ts greater than 1651 U/L may no t be reliable due to matrix effect w ith extended diluti on as it exceeds the enrober s recommended l imit. Caution should be exercised when interpreting matute ch values and done in conjunction [facility] clinical contex t. Lab Interpretation (test Abnormal code = 36180-6) [facility] HospitalGlomerular Filtration Rate 2020-11-14 09:16:30 Test Item Value [...] failure <15 [Automated mess age] The system [employer] generated this result transmitted ref erence range: [...] failure <15 [Automated mess age] The system [employer] generated this result transmitted ref erence range: >=60 mL/min/1.73 sq. m. The reference range was not used to int erpret this result as normal/abnormal . Lab Interpretation Abnormal (test code = 83509-5) [facility] [place]Glomerular Filtration Rate 2020-11-14 09:16:30 Test Item Value [...] failure <15 [Automated mess age] The system [employer] generated this result transmitted ref erence range: [...] failure <15 [Automated mess age] The system [employer] generated this result transmitted ref erence range: >=60 mL/min/1.73 sq. m. The reference range was not used to int erpret this result as normal/abnormal . Lab Interpretation Abnormal (test code = 17906-4) [facility] [place]anaGlomerular Filtration Rate 2020-11-14 09:16:30 Test Item Value [...] failure <15 [Automated mess age] The system [employer] generated this result transmitted ref erence range: [...] failure <15 [Automated mess age] The system [employer] generated this result transmitted ref erence range: >=60 mL/min/1.73 sq. m. The reference range was not used to int erpret this result as normal/abnormal . Lab Interpretation Abnormal (test code = 93721-1) [facility] [place]Cal[place] [id number] 09:16:29 Test Item Value Reference Range Interpretation Comments Calcium Lvl (test code = 5258) 8.3 mg/dL 8.4-10.2 L Lab Interpretation (test code = Abnormal 32647-5) [facility] HospitalCalcium [id number] 09:16:29 Test Item Value Reference Range Interpretation Comments Calcium Lvl (test code = 5258) 8.3 mg/dL 8.4-10.2 L Lab Interpretation (test code = Abnormal 76809-2) [facility] HospitalCal[facility] [id number] 09:16:29 Test Item Value Reference Range Interpretation Comments Calcium Lvl (test code = 5258) 8.3 mg/dL 8.4-10.2 L Lab Interpretation (test code = Abnormal 35245-2) [facility] HospitalUric [id number] 09:16:28 Test Item Value Reference Range Interpretation Comments Uric Acid (test code = 7955) 8.5 mg/dL 3.4-7.0 H Lab Interpretation (test code = Abnormal 89532-2) [facility] HospitalUric [id number] 09:16:28 Test Item Value Reference Range Interpretation Comments Uric Acid (test code = 7955) 8.5 mg/dL 3.4-7.0 H Lab Interpretation (test code = Abnormal 79954-2) [facility] HospitalUric [id number] 09:16:28 Test Item Value Reference Range Interpretation Comments Uric Acid (test code = 7955) 8.5 mg/dL 3.4-7.0 H Lab Interpretation (test code = Abnormal 68502-6) [facility] HospitalAlbumin [id number] 09:16:27 Test Item Value Reference Range Interpretation Comments Albumin Lvl (test code = 3.1 See_Comment L [A utomated message] 5007) The system [employer] generated this result transmitted ref erence range: 3.5 - 5. 2 gm/dL. The refe rence range was not u sed to interpret this result as normal/abnor mal. Lab Interpretation (test Abnormal code = 12964-1) [facility] HospitalAlbumin [id number] 09:16:27 Test Item Value Reference Range Interpretation Comments Albumin Lvl (test code = 3.1 See_Comment L [A utomated message] 4598) The system [employer] generated this result transmitted ref erence range: 3.5 - 5. 2 gm/dL. The refe rence range was not u sed to interpret this result as normal/abnor mal. Lab Interpretation (test Abnormal code = 74812-1) [facility] HospitalAlbumin [id number] 09:16:27 Test Item Value Reference Range Interpretation Comments Albumin Lvl (test code = 3.1 See_Comment L [A utomated message] 7763) The system [employer] generated this result transmitted ref erence range: 3.5 - 5. 2 gm/dL. The refe rence range was not u sed to interpret this result as normal/abnor mal. Lab Interpretation (test Abnormal code = 30592-5) [facility] HospitalTotal [id number] 09:16:26 Test Item Value Reference Range Interpretation Comments Total Protein (test code = 7649) 6.2 g/dL 6.4-8.3 L Lab Interpretation (test code = Abnormal 26321-8) [facility] HospitalTotal [id number] 09:16:26 Test Item Value Reference Range Interpretation Comments Total Protein (test code = 7649) 6.2 g/dL 6.4-8.3 L Lab Interpretation (test code = Abnormal 85465-4) [facility] HospitalTotal [id number] 09:16:26 Test Item Value Reference Range Interpretation Comments Total Protein (test code = 7649) 6.2 g/dL 6.4-8.3 L Lab Interpretation (test code = Abnormal 77674-7) [facility] HospitalAspartate Aminotransferase 2020-11-14 09:16:25 Test Item Value Reference Range Interpretation Comments AST (test code = 19 U/L See_Comment [Automated message] The 2187) system which ge nerated this result transmit jigar reference range : <=40. The reference range was not used to interpr et this result as sonido l/abnormal. [facility] HospitalAspartate Aminotransferase 2020-11-14 09:16:25 Test Item Value Reference Range Interpretation Comments AST (test code = 19 U/L See_Comment [Automated message] The 4731) system which ge nerated this result transmit jigar reference range : <=40. The reference range was not used to interpr et this result as sonido l/abnormal. [facility] HospitalAspartate Aminotransferase 2020-11-14 09:16:25 Test Item Value Reference Range Interpretation Comments AST (test code = 19 U/L See_Comment [Automated message] The 4731) system which ge nerated this result transmit jigar reference range : <=40. The reference range was not used to interpr et this result as sonido l/abnormal. [facility] HospitalMagnesium [id number] 09:16:24 Test Item Value Reference Range Interpretation Comments Magnesium (test code = 6359) 1.8 mg/dL 1.6-2.6 [facility] HospitalMagnesium [id number] 09:16:24 Test Item Value Reference Range Interpretation Comments Magnesium (test code = 6359) 1.8 mg/dL 1.6-2.6 [facility] HospitalMagnesium [id number] 09:16:24 Test Item Value Reference Range Interpretation Comments Magnesium (test code = 6359) 1.8 mg/dL 1.6-2.6 [facility] HospitalAlkaline [id number] 09:16:22 Test Item Value Reference Range Interpretation Comments Alk Phos (test code = 4768) 249 U/L 40-129 H Lab Interpretation (test code = Abnormal 29896-2) [facility] HospitalAlkaline [id number] 09:16:22 Test Item Value Reference Range Interpretation Comments Alk Phos (test code = 4768) 249 U/L 40-129 H Lab Interpretation (test code = Abnormal 17963-0) [facility] HospitalAlkaline [id number] 09:16:22 Test Item Value Reference Range Interpretation Comments Alk Phos (test code = 4768) 249 U/L 40-129 H Lab Interpretation (test code = Abnormal 21429-0) [facility] HospitalGlucose [id number] 09:16:21 Test Item Value Reference Range Interpretation Comments Glucose Level (test 93 mg/dL 70-99 Effectiv e 10/21/15, the code = 5699) glucose referen ce intervals have been updated based o n [place] [employer] tia delines (Standards of edical Care in Diabete s 2016. Diabetes Care 2 016; 39: S13-S22).Fastin g blood glucose:Normal: 70-99 mg/dLImpaired f asting glucose (increa sed risk for diabetes or pre-diabetes): 100-125 mg/dLDiabetes m ellitus: >/=126 mg/dL Ra ndom blood glucose:N ormal: 70-199 mg/dLNot e: Random glucose >100 mg /dL is associated with increased risk for diabetes [facility] [id number] 09:16:21 Test Item Value Reference Range Interpretation Comments Glucose Level (test 93 mg/dL 70-99 Effectiv e 10/21/15, the code = 5699) glucose referen ce intervals have been updated based o n [place] [employer] tia delines (Standards of edical Care in Diabete s 2016. Diabetes Care 2 016; 39: S13-S22).Fastin g blood glucose:Normal: 70-99 mg/dLImpaired f asting glucose (increa sed risk for diabetes or pre-diabetes): 100-125 mg/dLDiabetes m ellitus: >/=126 mg/dL Ra ndom blood glucose:N ormal: 70-199 mg/dLNot e: Random glucose >100 mg /dL is associated with increased risk for diabetes [facility] [id number] 09:16:21 Test Item Value Reference Range Interpretation Comments Glucose Level (test 93 mg/dL 70-99 Effectiv e 10/21/15, the code = 5699) glucose referen ce intervals have been updated based o n [place] [employer] tia delines (Standards of edical Care in Diabete s 2016. Diabetes Care 2 016; 39: S13-S22).Fastin g blood glucose:Normal: 70-99 mg/dLImpaired f asting glucose (increa sed risk for diabetes or pre-diabetes): 100-125 mg/dLDiabetes m ellitus: >/=126 mg/dL Ra ndom blood glucose:N ormal: 70-199 mg/dLNot e: Random glucose >100 mg /dL is associated with increased risk for diabetes [facility]ALT2021-08-[facility] 09:16:20 Test Item Value Reference Range Interpretation Comments ALT (test code = 16 U/L See_Comment [Automated message] The 4705) system which ge nerated this result transmit jigar reference range : <=41. The reference range was not used to interpr et this result as sonido l/abnormal. [facility]ALT[facility] 09:16:20 Test Item Value Reference Range Interpretation Comments ALT (test code = 16 U/L See_Comment [Automated message] The [employer]5) system which ge nerated this result transmit jigar reference range : <=41. The reference range was not used to interpr et this result as sonido l/abnormal. [facility]ALT[facility] 09:16:20 Test Item Value Reference Range Interpretation Comments ALT (test code = 16 U/L See_Comment [Automated message] The [employer]5) system which ge nerated this result transmit jigar reference range : <=41. The reference range was not used to interpr et this result as sonido l/abnormal. [facility].Serum Cfwtsjlqew1865-14-50 09:16:19 Test Item Value Reference Range Interpretation Comments Creatinine (test code = 5399) 2.53 mg/dL 0.67-1.17 H Lab Interpretation (test code = Abnormal 17575-9) [facility].Serum [id number] 09:16:19 Test Item Value Reference Range Interpretation Comments Creatinine (test code = 5399) 2.53 mg/dL 0.67-1.17 H Lab Interpretation (test code = Abnormal 84859-7) [facility].Serum [id number] 09:16:19 Test Item Value Reference Range Interpretation Comments Creatinine (test code = 5399) 2.53 mg/dL 0.67-1.17 H Lab Interpretation (test code = Abnormal 96659-9) [facility]UN20[facility] 09:16:18 Test Item Value Reference Range Interpretation Comments BUN (test code = 5055) 29 mg/dL 6-23 H Lab Interpretation (test code = Abnormal 71502-8) [facility]-21 09:16:18 Test Item Value Reference Range Interpretation Comments BUN (test code = 5055) 29 mg/dL 6-23 H Lab Interpretation (test code = Abnormal 91641-5) [facility]UN2021-[facility]-21 09:16:18 Test Item Value Reference Range Interpretation Comments BUN (test code = 5055) 29 mg/dL 6-23 H Lab Interpretation (test code = Abnormal 18093-7) [facility] HospitalVRE [id number] 14:30:01 Test Item Value Reference Range Interpretation Comments Final Report (test No Vancomycin resistant code = 8488) Enterococci isolated Path Review - VRE VRE absent or below limits (test code = 8485) of detection....The results have been reviewed and electronically signed by Pathologist:Jonathon Bethea MD, PhD #[id number] [facility] [id number] 14:30:01 Test Item Value Reference Range Interpretation Comments Final Report (test No Vancomycin resistant code = 8488) Enterococci isolated Path Review - VRE VRE absent or below limits (test code = 8485) of detection....The results have been reviewed and electronically signed by Pathologist:Jonathon Bethea MD, PhD #[id number] [facility] [id number] 14:30:01 Test Item Value Reference Range Interpretation Comments Final Report (test No Vancomycin resistant code = 8488) Enterococci isolated Path Review - VRE VRE absent or below limits (test code = 8485) of detection....The results have been reviewed and electronically signed by Pathologist:Jonathon Bethea MD, PhD #[id number] [facility] HospitalLower Respiratory Culture w/Gram [id number] 14:14:20 Test Item Value Reference Range Interpretation Comments Final Report (test code Moderate Yeast A = 8488) isolated Path Review (test code = Yeast is a component A 8492) of upper respiratory/oral jesse and may NOT be clinically significant. Recommend clinical correlation BEFORE requesting additional workup....The results have been reviewed and electronically signed by Pathologist:Jonathon Bethea MD, PhD #[id number] Gram Stain Report (test Few WBC's seenNo A code = 64637-3) organisms seen. Lab Interpretation (test Abnormal code = 81606-3) [facility] HospitalLow Respiratory Culture w/Gram [id number] 14:14:20 Test Item Value Reference Range Interpretation Comments Final Report (test code Moderate Yeast A = 8488) isolated Path Review (test code = Yeast is a component A 8492) of upper respiratory/oral jesse and may NOT be clinically significant. Recommend clinical correlation BEFORE requesting additional workup....The results have been reviewed and electronically signed by Pathologist:Jonathon Bethea MD, PhD #[id number] Gram Stain Report (test Few WBC's seenNo A code = 32095-1) organisms seen. Lab Interpretation (test Abnormal code = 54719-4) [facility] HospitalLow Respiratory Culture w/Gram [id number] 14:14:20 Test Item Value Reference Range Interpretation Comments Final Report (test code Moderate Yeast A = 8488) isolated Path Review (test code = Yeast is a component A 8492) of upper respiratory/oral jesse and may NOT be clinically significant. Recommend clinical correlation BEFORE requesting additional workup....The results have been reviewed and electronically signed by Pathologist:Jonathon Bethea MD, PhD #[id number] Gram Stain Report (test Few WBC's seenNo A code = 35057-3) organisms seen. Lab Interpretation (test Abnormal code = 91287-7) [facility] HospitalTMP Interpretation Antibody Screen [id number] 12:43:39 Test Item Value Reference Range Interpretation Comments TMP Auto Neg At the present ABSC Interp time, patient (test code = plasma shows no ____MANUELA 7535) evidence of RBC Robert ASHLEY tated by: alloantibodies. Nivia NEAL ed Date/Time: 10.26 7:43 AM CDT Tra nscribed Date/Time: 10.26 7:43 AM CDTElectronical ly Signed By: aldo NUNEZ MA 11.13.2020 7 :43 AM C [facility] HospitalTMP Interpretation Antibody Screen [id number] 12:43:39 Test Item Value Reference Range Interpretation Comments TMP Auto Neg At the present ABSC Interp time, patient (test code = plasma shows no ____FERNANDO 7535) evidence of RBC DION,Dic tated by: alloantibodies. MANUELA ASHLEY,Dictat ed Date/Time: 10.26 7:43 AM CDT Tra nscribed Date/Time: 10.26 7:43 AM CDTElectronical ly Signed By: MANUELA FARRELL, on 11.13.2020 7 :43 AM C [facility] HospitalTMP Interpretation Antibody Screen [id number] 12:43:39 Test Item Value Reference Range Interpretation Comments TMP Auto Neg At the present ABSC Interp time, patient (test code = plasma shows no ____FERNANDO 7535) evidence of RBC DION,Dic tated by: alloantibodies. MANUELA ASHLEYDictat ed Date/Time: 10.26 7:43 AM CDT Tra nscribed Date/Time: 10.26 7:43 AM CDTElectronical ly Signed By: MANUELA FARRELL, on 11.13.2020 7 :43 AM C [facility] HospitalAntibody [id number] 12:34:14 Test Item Value Reference Range Interpretation Comments ABSC. (test code = 890-4) Negative ABSC [facility] HospitalAntibody [id number] 12:34:14 Test Item Value Reference Range Interpretation Comments ABSC. (test code = 890-4) Negative ABSC [facility] HospitalAntibody [id number] 12:34:14 Test Item Value Reference Range Interpretation Comments ABSC. (test code = 890-4) Negative ABSC [facility] HospitalABORh2021-08-20 12:34:13 Test Item Value Reference Range Interpretation Comments ABORh. (test code = 882-1) A POS [facility] HospitalABORh2021-08-20 12:34:13 Test Item Value Reference Range Interpretation Comments ABORh. (test code = 882-1) A POS [facility] HospitalABORh2021-08-20 12:34:13 Test Item Value Reference Range Interpretation Comments ABORh. (test code = 882-1) A POS [facility] HospitalClot Expiration [id number] 12:34:08 Test Item Value Reference Range Interpretation Comments T & S Expiration (test code = 11/16/2020 5318) [facility] HospitalClot Expiration [id number] 12:34:08 Test Item Value Reference Range Interpretation Comments T & S Expiration (test code = 11/16/2020 5318) [facility] HospitalClot Expiration [id number] 12:34:08 Test Item Value Reference Range Interpretation Comments T & S Expiration (test code = 11/16/2020 5318) [facility] HospitalPartial Thromboplastin Time 2020-11-13 09:28:40 Test Item Value Reference Range Interpretation Comments aPTT (test code = 6773) 43.1 See_Comment H [Au tomated message] The system [employer] generated this result transmitted ref erence range: 24.7 - 3 6.8 second(s). The reference range was not used to int erpret this result as normal/abnormal . Lab Interpretation (test Abnormal code = 09447-8) [facility] HospitalPartial Thromboplastin Time 2020-11-13 09:28:40 Test Item Value Reference Range Interpretation Comments aPTT (test code = 6773) 43.1 See_Comment H [Au tomated message] The system [employer] generated this result transmitted ref erence range: 24.7 - 3 6.8 second(s). The reference range was not used to int erpret this result as normal/abnormal . Lab Interpretation (test Abnormal code = 91127-0) [facility] HospitalPartial Thromboplastin Time 2020-11-13 09:28:40 Test Item Value Reference Range Interpretation Comments aPTT (test code = 6773) 43.1 See_Comment H [Au tomated message] The system [employer] generated this result transmitted ref erence range: 24.7 - 3 6.8 second(s). The reference range was not used to int erpret this result as normal/abnormal . Lab Interpretation (test Abnormal code = 60897-3) [facility] HospitalProthrombin Time with [id number] 09:28:39 Test Item Value Reference Range Interpretation Comments PT (test code = 6746) 16.1 See_Comment H [Auto mated message] The system [employer] generated this result transmitted ref erence range: 11.5 - 1 3.9 second(s). The reference range was not used to int erpret this result as normal/abnormal . INR (test code = 5973) 1.40 0.90-1.10 H Lab Interpretation (test Abnormal code = 58826-2) [facility] HospitalProthrombin Time with [id number] 09:28:39 Test Item Value Reference Range Interpretation Comments PT (test code = 6746) 16.1 See_Comment H [Auto mated message] The system [employer] generated this result transmitted ref erence range: 11.5 - 1 3.9 second(s). The reference range was not used to int erpret this result as normal/abnormal . INR (test code = 5973) 1.40 0.90-1.10 H Lab Interpretation (test Abnormal code = 48902-0) [facility] HospitalProthrombin Time with [id number] 09:28:39 Test Item Value Reference Range Interpretation Comments PT (test code = 6746) 16.1 See_Comment H [Auto mated message] The system [employer] generated this result transmitted ref erence range: 11.5 - 1 3.9 second(s). The reference range was not used to int erpret this result as normal/abnormal . INR (test code = 5973) 1.40 0.90-1.10 H Lab Interpretation (test Abnormal code = 89197-6) [facility] HospitalUrea Nitrogen [id number] 23:22:37 Test Item Value Reference Range Interpretation Comments U Urea (test code = 436 mg/dL Normal r louis not 7820) available for c ollections less than 24 ho urs in duration. [facility] HospitalUrea Nitrogen [id number] 23:22:37 Test Item Value Reference Range Interpretation Comments U Urea (test code = 436 mg/dL Normal r louis not 7820) available for c ollections less than 24 ho urs in duration. [facility] HospitalUrea Nitrogen [id number] 23:22:37 Test Item Value Reference Range Interpretation Comments U Urea (test code = 436 mg/dL Normal r louis not 7820) available for c ollections less than 24 ho urs in duration. [facility] HospitalCreatinine [id number] 23:22:36 Test Item Value Reference Range Interpretation Comments U Creatinine (test 101.0 mg/dL 40.0-278.0 The refer ence range code = 7725) listed is for f irst morning urine collection. [facility] HospitalCreatinine [id number] 23:22:36 Test Item Value Reference Range Interpretation Comments U Creatinine (test 101.0 mg/dL 40.0-278.0 The refer ence range code = 7725) listed is for f irst morning urine collection. [facility] HospitalCreatinine [id number] 23:22:36 Test Item Value Reference Range Interpretation Comments U Creatinine (test 101.0 mg/dL 40.0-278.0 The refer ence range code = 7725) listed is for f irst morning urine collection. [facility] [id number] 23:22:35 Test Item Value Reference Range Interpretation Comments U Sodium (test code = 28 mEq/L Normal range not available 7809) for collections less than 24 hours in dur ation. [facility] [id number] 23:22:35 Test Item Value Reference Range Interpretation Comments U Sodium (test code = 28 mEq/L Normal range not available 7809) for collections less than 24 hours in dur ation. [facility] [id number] 23:22:35 Test Item Value Reference Range Interpretation Comments U Sodium (test code = 28 mEq/L Normal range not available 3109) for collections less than 24 hours in bashir sorto. [facility] HospitalAlbumin Level [id number] 23:19:07 Test Item Value Reference Range Interpretation [...] >300 mg/g [Automated mess age] The system [employer] generated this result transmit jigar reference range : <=29. The refer ence range was not u sed to interpret th is result as normal/abnormal . Lab Interpretation Abnormal (test code = 33145-8) [facility] HospitalAlbumin Level [id number] 23:19:07 Test Item Value Reference Range Interpretation [...] >300 mg/g [Automated mess age] The system [employer] generated this result transmit jigar reference range : <=29. The refer ence range was not u sed to interpret th is result as normal/abnormal . Lab Interpretation Abnormal (test code = 21987-8) [facility] HospitalAlbumin Level [id number] 23:19:07 Test Item Value Reference Range Interpretation [...] clinically sens itive and predictive indicator of [facility]. Albuminuria is determined by urinary albumin to creatinine rati o (UACR) in a ran dom spot urine or a 24-hour collect ion. Normal: <30 mg/gModerately increased: 30-3 00 mg/gSeverely increased: >300 mg/g [Automated mess age] The system [employer] generated this result transmit jiagr reference range : <=29. The refer ence range was not u sed to interpret th is result as normal/abnormal . Lab Interpretation Abnormal (test code = 50497-0) [facility] HospitalProtein/Creatinine Ratio Urine 2020-11-11 23:19:06 Test Item Value [...] g/g See_Comment H [Au tomated message] = 6855) The system [employer] generated this result transmit jigar reference range : <=0.14. The reference range was not used to interpret this result as normal/abnormal . Lab Interpretation Abnormal (test code = 04013-5) [facility] HospitalProtein/Creatinine Ratio Urine 2020-11-11 23:19:06 Test Item Value [...] [Au tomated message] = 7805) The system [employer] generated this result transmit jigar reference range : <=0.14. The reference range was not used to interpret this result as normal/abnormal . Lab Interpretation Abnormal (test code = 82131-9) [facility] HospitalProtein/Creatinine Ratio Urine 2020-11-11 23:19:06 Test Item Value [...] [Au tomated message] = 7805) The system [employer] generated this result transmit jigar reference range : <=0.14. The reference range was not used to interpret this result as normal/abnormal . Lab Interpretation Abnormal (test code = 98443-9) [facility] HospitalUrinalysis with Microscopic 2020-11-11 22:56:40 Test Item Value [...] implementation of new instrumentation in the Main [place], allowing greater sensitivity of measurement. Urinalysis results reported by the [facility] using existing instrumentation, as well as Urinalysis testing performed manually or by backup methodology at the [facility] will remain relatively unchanged. New reporting parameters and units will now be reported for all [facility]. Lab Interpretation Abnormal (test code = 79463-4) [facility] HospitalUrinalysis with Microscopic 2020-11-11 22:56:40 Test Item Value Reference Interpretation Comments Range UA WBC (test code = 5 See_Comment H [Automa jigra 7904) message] The system which generated this [...] implementation of new instrumentation in the Main [place], allowing greater sensitivity of measurement. Urinalysis results reported by the [facility] using existing instrumentation, as well as Urinalysis testing performed manually or by backup methodology at the [facility] will remain relatively unchanged. New reporting parameters and units will now be reported for all campuses. Lab Interpretation Abnormal (test code = 90877-7) [facility] HospitalUrinalysis with Microscopic 2020-11-11 22:56:40 Test Item Value [...] the implementation of new instrumentation in the [facility], allowing greater sensitivity of measurement. Urinalysis results reported by the [facility] using existing instrumentation, as well as Urinalysis testing performed manually or by backup methodology at the [facility] will remain relatively unchanged. New reporting parameters and units will now be reported for all campuses. Lab Interpretation Abnormal (test code = 67249-6) [facility] HospitalUrinalysis w/Microscopic if [id number] 22:48:43 Test Item Value Reference Range Interpretation [...] A Lab Interpretation (test code = Abnormal 44841-5) [facility] HospitalUrinalysis w/Microscopic if [id number] 22:48:43 Test Item Value Reference Range Interpretation [...] A Lab Interpretation (test code = Abnormal 18328-6) [facility] HospitalUrinalysis w/Microscopic if [id number] 22:48:43 Test Item Value Reference Range Interpretation [...] A Lab Interpretation (test code = Abnormal 37239-3) [facility] HospitalTMP Interpretation Crossmatch 2020-11-11 22:06:30 Test Item Value Reference Range Interpretation Comments TMP XM Interp RBC units (test code = crossmatched for 7566) transfusion appear _MANUELA rhodes. Nivia ASHLEY ed by: Nivia NEAL ed Date/Time: 10.25 17:06 PM CDT Transcribed Date/Time: 10.25 17:06 PM CDTElectronical ly Signed By: YAS ASHLEY, on 11.11.2020 17:0 6 PM [facility] HospitalTMP Interpretation Crossmatch 2020-11-11 22:06:30 Test Item Value Reference Range Interpretation Comments TMP XM Interp RBC units (test code = crossmatched for 7566) transfusion appear _MANUELA rhodes. Nivia ASHLEY ed by: Nivia NEAL ed Date/Time: 10.25 17:06 PM CDT Transcribed Date/Time: 10.25 17:06 PM CDTElectronical ly Signed By: YAS ASHLEY, on 11.11.2020 17:0 6 PM [facility] HospitalTMP Interpretation Crossmatch 2020-11-11 22:06:30 Test Item Value Reference Range Interpretation Comments TMP XM Interp RBC units (test code = crossmatched for 7566) transfusion appear _MANUELA acceptable. Nivia ASHLEY ed by: Nivia NEAL ed Date/Time: 10.25 17:06 PM CDT Transcribed Date/Time: 10.25 17:06 PM CDTElectronical ly Signed By: YAS ASHLEY, on 11.11.2020 17:0 6 PM [facility] HospitalPrepare RBC:G15 NE, 1 Units 2020-11-11 19:07:08 Test Item Value Reference Range Interpretation Comments PRBC Product Ready 1 Red Blood Cells (test code = Available - 57309-7) Order Form 03 when ready for product issue. Unit Number (test [id number] code = 7002) Product Code (test [id number] code = 7003) Unit Expiration (test code = 032127) Unit Blood Type 6200 (test code = 7004) Product Code Text RBCIRLR CPD AS1 (test code = 500mL 316286) Crossmatch Expiration Date (test code = ) Unit Irradiated IRRADIATED (test code = 569924) Dispense Status ISSUED (test code = 7001) Unit Blood Type A Positive (test code = 7005) Product Pool Table Mechanic .BPAM ____ Location (test ___ code = 755410) ___ ____ [facility] HospitalPrepare RBC:G15 NE, 1 Units 2020-11-11 19:07:08 Test Item Value Reference Range Interpretation Comments PRBC Product Ready 1 Red Blood Cells (test code = Available - 01600-0) Order Form 03 when ready for product issue. Unit Number (test [id number] code = 7002) Product Code (test [id number] code = 7003) Unit Expiration (test code = 560491) Unit Blood Type 6200 (test code = 7004) Product Code Text RBCIRLR CPD AS1 (test code = 500mL 535313) Crossmatch [id number] Expiration Date (test code = ) Unit Irradiated IRRADIATED (test code = 657256) Dispense Status ISSUED (test code = 7001) Unit Blood Type A Positive (test code = 7005) Product Pool Table Mechanic .BPAM ____ Location (test ___ code = 267224) ___ ____ [facility] HospitalPrep[facility] RBC:G15 NE, 1 Units 2020-11-11 19:07:08 Test Item Value Reference Range Interpretation Comments PRBC Product Ready 1 Red Blood Cells (test code = Available - 38032-8) Order Form 03 when ready for product issue. Unit Number (test [id number] code = 7002) Product Code (test [id number] code = 7003) Unit Expiration (test code = ) Unit Blood Type 6200 (test code = 7004) Product Code Text RBCIRLR CPD AS1 (test code = 500mL 790113) Crossmatch Expiration Date (test code = ) Unit Irradiated IRRADIATED (test code = ) Dispense Status ISSUED (test code = 700) Unit Blood Type A Positive (test code = 7005) Product Pool Table Mechanic .BPAM ____ Location (test ___ code = 277884) ___ ____ [facility] Product Ready for Pool Table Mechanic 2020-11-11 13:49:44 Test Item Value Reference Range Interpretation Comments PRBC Product Ready B2 Blood Bank Product is ready for for Pool Table Mechanic (test seed cone picker on October code = 364374) 2020 08:4 4:54 CDT. [facility] Product Ready for Pool Table Mechanic 2020-11-11 13:49:44 Test Item Value Reference Range Interpretation Comments PRBC Product Ready B2 Blood Bank Product is ready for for Pool Table Mechanic (test seed cone picker on October code = 951024) 2020 08:4 4:54 CDT. [facility] Product Ready for Pool Table Mechanic 2020-11-11 13:49:44 Test Item Value Reference Range Interpretation Comments PRBC Product Ready B2 Blood Bank Product is ready for for Pool Table Mechanic (test seed cone picker on October code = 545955) 2020 08:4 4:54 CDT. [facility] (SARS-CoV-2) PCR- Asymptomatic [id number] 07:02:50 Test Item Value Reference Range Interpretation Comments COVID19 (SARS Not Detected Not Detected This test is a CoV-2) Result qualitative (test code = reverse-transcr iptase 46807-9) polymerase kerry n reaction (RT-PC R) developed [...] were verified by the Microbiology Laboratory at [facility], CLIA Accreditation # : [id number] and CAP Accreditation # : [id number]. Result s must be interpreted within the [...] te sting if clinically indicated. COVID19 SARS HEALTH SAFETY INSTRUCTOR Swab Source (test code = 14360) COVID19 SARS Inpatient Indication (test Admission code = 48182) DARCI (test code = "Hematology 7 day DARCI) interval retest per Infectious Disease recommendations". [facility] ([facility]) PCR- Asymptomatic [id number] 07:02:50 Test Item Value Reference Range Interpretation Comments COVID19 (SARS Not Detected Not Detected This test is a CoV-2) Result qualitative (test code = reverse-transcr iptase 77015-5) polymerase kerry n reaction (RT-PC R) developed [...] were verified by the Microbiology Laboratory at [facility], CLIA Accreditation # : [id number] and CAP Accreditation # : [id number]. Result s must be interpreted within the [...] te sting if clinically indicated. COVID19 SARS HEALTH SAFETY INSTRUCTOR Swab Source (test code = 77282) COVID19 SARS Inpatient Indication (test Admission code = 94610) DARCI (test code = "Hematology 7 day DARCI) interval retest per Infectious Disease recommendations". [facility] (SARS-CoV-2) PCR- Asymptomatic [id number] 07:02:50 Test Item Value Reference Range Interpretation Comments COVID19 (SARS Not Detected Not Detected This test is a CoV-2) Result qualitative (test code = reverse-transcr iptase 75503-3) polymerase kerry n reaction (RT-PC R) developed [...] were verified by the Microbiology Laboratory at [facility] [place], CLIA Accreditation # : [id number] and CAP Accreditation # : [id number]. Result s must be interpreted within the [...] te sting if clinically indicated. COVID19 SARS HEALTH SAFETY INSTRUCTOR Swab Source (test code = 65788) COVID19 SARS Inpatient Indication (test Admission code = 37919) DARCI (test code = "Hematology 7 day DARCI) interval retest per Infectious Disease recommendations". [facility] For Doc Review 2020-11-09 16:17:06 Test Item Value Reference Range Interpretation Comments Peripheral Smear (test code = 4273) [facility] Smr For Doc Review 2020-11-09 16:17:06 Test Item Value Reference Range Interpretation Comments Peripheral Smear (test code = 4273) [facility] For Doc Review 2020-11-09 16:17:06 Test Item Value Reference Range Interpretation Comments Peripheral Smear (test code = 4273) [facility] [id number] 04:39:40 Test Item Value Reference Interpretation Comments Range POC Glucose (test 144 mg/dL 70-99 H RN Notifie dCapillary code = 70073-1) blood sample s, e.g. obtained by fingerstick, [...] Capillary code = 9554) Performing Lab (test [facility] code = 97829) [facility] Yamilet rowan Clinical Lab, [address] [place] [address]; Armed Custom Protection Officer: Betsey Johnson MD Lab Interpretation Abnormal (test code = 49704-1) [facility] Glucose [id number] 04:39:40 Test Item Value Reference Interpretation Comments Range POC Glucose (test 144 mg/dL 70-99 H RN Notifie dCapillary code = 52311-7) blood sample s, e.g. obtained by fingerstick, [...] Capillary code = 9554) Performing Lab (test [facility] code = 04662) [facility] Yamilet rowan Clinical Lab, [address] [place] [address]; Armed Custom Protection Officer: Betsey Johnson MD Lab Interpretation Abnormal (test code = 58435-7) [facility] Glucose [id number] 04:39:40 Test Item Value Reference Interpretation Comments Range POC Glucose (test 144 mg/dL 70-99 H RN Notifie dCapillary code = 73843-9) blood sample s, e.g. obtained by fingerstick, [...] Capillary code = 9554) Performing Lab (test [facility] code = 09488) [facility] MD Yamilet rowan Clinical Lab, [address] [facility] [place] [address]; Armed Custom Protection Officer: Betsey Johnson MD Lab Interpretation Abnormal (test code = 81575-4) [facility] O[facility] [id number] 15:03:09 Test Item Value Reference Interpretation Comments Range POC O2 75.8 % Saturation,Venous (test code = 81709) POC Oxyhemoglobin, 73.7 % Venous (test code = 95135) POC Hemoglobin, total 8.8 g/dL 13.5-17.5 L (test code = 23920) POC Carboxyhemoglobin 0.7 % 0.0-1.9 (test code = 06201) POC Methemoglobin 2.0 % 0.0-1.5 H Method sam cription: (test code = 08690) The ABL8 0 FLEX CO-OX OSM analyzer [...] Site (test Main pulm art code = 05167) [facility]forming [facility] ([facility] 69328[facility] Cli nical Lab, [address] [place] [address]; Armed Custom Protection Officer: Betsey Johnson MD Lab Interpretation Abnormal (test code = 41663-1) [facility] Oximetry [id number] 15:03:09 Test Item Value Reference Interpretation Comments Range POC O2 75.8 % Saturation,Venous (test code = 80246) POC Oxyhemoglobin, 73.7 % Venous (test code = 96138) POC Hemoglobin, total 8.8 g/dL 13.5-17.5 L (test code = 72044) POC Carboxyhemoglobin 0.7 % 0.0-1.9 (test code = 63131) POC Methemoglobin 2.0 % 0.0-1.5 H Method sam cription: (test code = 86737) The ABL8 0 FLEX CO-OX OSM analyzer [...] Site (test Main pulm art code = 44849) Performing Lab (test MDA Main Main Ca mpus code = 12521) [facility] Cli nical Lab, [address] [place] [address] [place], [place] [address]; Armed Custom Protection Officer: Betsey Johnson MD Lab Interpretation Abnormal (test code = 58306-3) [facility] Oximetry [id number] 15:03:09 Test Item Value Reference Interpretation Comments Range POC O2 75.8 % Saturation,Venous (test code = 01117) POC Oxyhemoglobin, 73.7 % Venous (test code = 49188) POC Hemoglobin, total 8.8 g/dL 13.5-17.5 L (test code = 13681) POC Carboxyhemoglobin 0.7 % 0.0-1.9 (test code = 73421) POC Methemoglobin 2.0 % 0.0-1.5 H Method sam cription: (test code = 12907) The ABL8 0 FLEX CO-OX OSM analyzer [...] Site (test Main pulm art code = 46779) Performing Lab (test MDA Main Main Ca mpus code = 80330) [facility] Cli nical Lab, [address], [place] [address]; Armed Custom Protection Officer: Betsey Johnson MD Lab Interpretation Abnormal (test code = 76663-3) [facility] Platelet Fraction 2020-11-02 10:14:02 Test Item Value Reference Range Interpretation Comments IPF (test code = 5.9 % 0.8-6.2 5988) DARCI (test code = For patients with DARCI) Platelets lower than 100 k/mm3 [facility] Platelet Fraction 2020-11-02 10:14:02 Test Item Value Reference Range Interpretation Comments IPF (test code = 5.9 % 0.8-6.2 5988) DARCI (test code = For patients with DARCI) Platelets lower than 100 k/mm3 [facility] HospitalIm[facility] Platelet Fraction 2020-11-02 10:14:02 Test Item Value Reference Range Interpretation Comments IPF (test code = 5.9 % 0.8-6.2 5988) DARCI (test code = For patients with DARCI) Platelets lower than 100 k/mm3 [facility] HospitalRetic [id number] 10:14:01 Test Item Value Reference Range Interpretation Comments Retic Cnt Auto (test 0.6 % 0.5-1.5 code = 33971-6) RETHE (test code = 37.5 pg 23.2-37.5 6973) IRF (test code = 16.3 % 2.3-18.0 40060-9) DARCI (test code = DARCI) For patients with Platelets lower than 100 k/mm3 [facility] HospitalRetic [id number] 10:14:01 Test Item Value Reference Range Interpretation Comments Retic Cnt Auto (test 0.6 % 0.5-1.5 code = 62453-7) RETHE (test code = 37.5 pg 23.2-37.5 6973) IRF (test code = 16.3 % 2.3-18.0 44746-4) DARCI (test code = DARCI) For patients with Platelets lower than 100 k/mm3 [facility] [id number] 10:14:01 Test Item Value Reference Range Interpretation Comments Retic Cnt Auto (test 0.6 % 0.5-1.5 code = 01369-8) RETHE (test code = 37.5 pg 23.2-37.5 6973) IRF (test code = 16.3 % 2.3-18.0 76931-7) DARCI (test code = DARCI) For patients with Platelets lower than 100 k/mm3 [facility] HospitalNT-Pro BNP (In-House)2020-10-31 11:01:08 Test Item Value Reference Range Interpretation Comments NT ProBNP (test code = 3919 pg/mL See_Comment H [Aut omated message] 9385) The system PlateJoy generated this result transmit jigar reference range : <=125. The refe rence range was not u sed to interpret th is result as normal/abnormal . Lab Interpretation Abnormal (test code = 66520-9) [facility] BNP (In-House)2020-10-31 11:01:08 Test Item Value Reference Range Interpretation Comments NT ProBNP (test code = 3919 pg/mL See_Comment H [Aut omated message] 9385) The system PlateJoy generated this result transmit jigar reference range : <=125. The refe rence range was not u sed to interpret th is result as normal/abnormal . Lab Interpretation Abnormal (test code = 50831-7) [facility]Pro BNP (In-House)2020-10-31 11:01:08 Test Item Value Reference Range Interpretation Comments NT ProBNP (test code = 3919 pg/mL See_Comment H [Aut omated message] 9385) The system PlateJoy generated this result transmit jigar reference range : <=125. The refe rence range was not u sed to interpret th is result as normal/abnormal . Lab Interpretation Abnormal (test code = 03041-1) [facility] HospitalUrine [id number] 21:14:59 Test Item Value Reference Range Interpretation Comments Final Report (test No growth code = 8488) Path Review - Urine The results have been (test code = 8483) reviewed and electronically signed by Pathologist:Mary Last MD, PhD #[id number] [facility] HospitalUrine [id number] 21:14:59 Test Item Value Reference Range Interpretation Comments Final Report (test No growth code = 8488) Path Review - Urine The results have been (test code = 8483) reviewed and electronically signed by Pathologist:Mary Last MD, PhD #[id number] [facility] HospitalUrine [id number] 21:14:59 Test Item Value Reference Range Interpretation Comments Final Report (test No growth code = 8488) Path Review - Urine The results have been (test code = 8483) reviewed and electronically signed by Pathologist:Mary Last MD, PhD #[id number] [facility] HospitalHBV DNA [id number] 00:21:11 Test Item Value Reference Range Interpretation Comments HBV DNA [facility] Undetected Undetected IU/mL Result in log IU/mL is (test code = Undetected. 18584-5) ----ADDITIO NAL INFORMATION---- ----The quantif ication range of this a ssay is 10 to1,000,000,000 IU/mL (1.00 log to 9. 00 log IU/mL). Testing was performed using the melissa HBV test ([employer] with the melissa 6800 System. Test Pe rformed by:[place] [id number] Director: Sukhwinder Neville M.D. Ph. D.; CLIA# [id number] [facility] HospitalHBV DNA [id number] 00:21:11 Test Item Value Reference Range Interpretation Comments HBV DNA [facility] Undetected Undetected IU/mL Result in log IU/mL is (test code = Undetected. 45139-4) ----ADDITIO NAL INFORMATION---- ----The quantif ication range of this a ssay is 10 to1,000,000,000 IU/mL (1.00 log to 9. 00 log IU/mL). Testing was performed using the melissa HBV test ([employer] with the melissa 6800 System. Test Pe rformed by:[place] [address]Lab Director: Sukhwinder Neville M.D. Ph. D.; CLIA# [id number] [facility] HospitalHBV DNA [id number] 00:21:11 Test Item Value Reference Range Interpretation Comments HBV DNA [facility] Undetected Undetected IU/mL Result in log IU/mL is (test code = Undetected. 28431-4) ----ADDITIO NAL INFORMATION---- ----The quantif ication range of this a ssay is 10 to1,000,000,000 IU/mL (1.00 log to 9. 00 log IU/mL). Testing was performed using the melissa HBV test ([employer] with the melissa 6800 System. Test Pe rformed by:[address] [address]Lab Director: Sukhwinder Neville M.D. Ph. D.; CLIA# [id number] [facility] [place]Fungus [id number] 21:36:34 Test Item Value Reference Range Interpretation Comments Final Report (test Few Yeast A code = 8488) isolatedProbable oral jesse Path Review - Fungus The results have been A (test code = 8479) reviewed and electronically signed by Pathologist:Mary Last MD, PhD #[id number] DARCI (test code = DARCI) And RULCultures are held for 4 weeks before finalization. Lab Interpretation Abnormal (test code = 67533-4) [facility] HospitalFungus [id number] 21:36:34 Test Item Value Reference Range Interpretation Comments Final Report (test Few Yeast A code = 8488) isolatedProbable oral jesse Path Review - Fungus The results have been A (test code = 8479) reviewed and electronically signed by Pathologist:Mary Last MD, PhD #[id number] DARCI (test code = DARCI) And RULCultures are held for 4 weeks before finalization. Lab Interpretation Abnormal (test code = 64877-2) [facility] HospitalFungus [id number] 21:36:34 Test Item Value Reference Range Interpretation Comments Final Report (test Few Yeast A code = 8488) isolatedProbable oral jesse Path Review - Fungus The results have been A (test code = 8479) reviewed and electronically signed by Pathologist:Mary Last MD, PhD #[id number] DARCI (test code = DARCI) And RULCultures are held for 4 weeks before finalization. Lab Interpretation Abnormal (test code = 87967-5) [facility] HospitalTobramycin [id number] 16:34:36 Test Item Value Reference Range Interpretation [...] before dose is due on 10/[address] [place], [place] [address]Tobramycin [id number] 16:34:36 Test Item Value Reference Range Interpretation [...] before dose is due on 10/[address] [place], [place] [address]Tobramycin [id number] 16:34:36 Test Item Value Reference Range Interpretation [...] before dose is due on 10/[address] [place], [place] [address]Ferritin [id number] 09:30:46 Test Item Value Reference Range Interpretation Comments Ferritin Lvl (test code = 5608) 899 ng/mL 30-400 H Lab Interpretation (test code = Abnormal 60180-6) [facility] HospitalFerritin [id number] 09:30:46 Test Item Value Reference Range Interpretation Comments Ferritin Lvl (test code = 5608) 899 ng/mL 30-400 H Lab Interpretation (test code = Abnormal 43266-7) [facility] HospitalFerritin [id number] 09:30:46 Test Item Value Reference Range Interpretation Comments Ferritin Lvl (test code = 5608) 899 ng/mL 30-400 H Lab Interpretation (test code = Abnormal 07629-7) [facility] HospitalGastrointestinal Multiplex Panel Path [id number] 20:12:16GIMP PRNo diarrheal pathogens detected by multiplex nucleic acid detection. A negative result does not rule-out the possibility of a diarrheal pathogen not are detected by this panel. Non- infectious causes of diarrhea should also be considered....Reviewed and Electronically signed by Pathologist:Monserrat LOVE, PhD #[id number] [facility]LEYUnH[facility] SoutheastGastrointestinal Multiplex Panel Path [id number] 20:12:16GIMP PRNo diarrheal pathogens detected by multiplex nucleic acid detection. A negative result does not rule- out the possibility of a diarrheal pathogen not are detected by this panel. Non- infectious causes of diarrhea should also be considered....Reviewed and Electronically signed by Pathologist:Monserrat LOVE, PhD #[id number] [facility] VALLEYUnHCA [facility] Healthcare SoutheastGastrointestinal Multiplex Panel Path [id number] 20:12:16GIMP PRNo diarrheal pathogens detected by multiplex nucleic acid detection. A negative result does not rule- out the possibility of a diarrheal pathogen not are detected by this panel. Non- infectious causes of diarrhea should also be considered....Reviewed and Electronically signed by Pathologist:Monserrat LOVE, PhD #[id number] [facility] VALLEYUnHCA [facility] Healthcare SoutheastClostridium Difficile DNA Path [id number] 19:51:50C diff DNA PRC. difficile EIA is performed only on stools positive for C. difficile DNA and detects the presence of C. difficile toxin proteins via a rapid immunoassay. Patients positive for BOTH C. difficile DNA and EIA are more likely to have a C. difficile infection....Reviewed and Electronically signed by Pathologist:Jonathon Bethea MD, PhD #[id number] [facility] VALLEYUnHCA [facility] Healthcare SoutheastClostridium Difficile DNA Path [id number] 19:51:50C diff DNA PRC. difficile EIA is performed only on stools positive for C. difficile DNA and detects the presence of C. difficile toxin proteins via a rapid immunoassay. Patients positive for BOTH C. difficile DNA and EIA are more likely to have a C. difficile infection....Reviewed and Electronically signed by Pathologist:Jonathon Bethea MD, PhD #[id number] [facility] VALLEYUnHCA [facility] Healthcare SoutheastClostridium Difficile DNA Path [id number] 19:51:50C diff DNA PRC. difficile EIA is performed only on stools positive for C. difficile DNA and detects the presence of C. difficile toxin proteins via a rapid immunoassay. Patients positive for BOTH C. difficile DNA and EIA are more likely to have a C. difficile infection....Reviewed and Electronically signed by Pathologist:Jonathon Bethea MD, PhD #[id number] [facility] VALLEYUnHCA [facility] Healthcare SoutheastClostridium Difficile DNA [id number] 15:56:03 Test Item Value Reference Range Interpretation [...] infection. Lab Interpretation (test Abnormal code = 71483-6) [facility] HospitalClostridium Difficile DNA Assay 2020-10-22 15:56:03 Test Item [...] infection. Lab Interpretation (test Abnormal code = 96962-5) [facility] HospitalClostridium Difficile DNA Assay 2020-10-22 15:56:03 Test Item [...] infection. Lab Interpretation (test Abnormal code = 70808-6) [facility] HospitalGastrointestinal Multiplex Panel 2020-10-21 22:23:03 Test Item Value [...] (test code = Not Applicable Not Detected 5460) Shigella/Enteroinvasive E. Not Detected Not Detected coli [...] Not Detected V) (test code = 7321) [facility] [place]astro[facility] Multiplex Panel 2020-10-21 22:23:03 Test Item Value [...] Not Detected V) (test code = 7321) [facility] HospitalGastrointestinal Multiplex Panel 2020-10-21 22:23:03 Test Item Value [...] Not Detected V) (test code = 7321) [facility] HospitalHepatitis B Surface Ag w/Confirm 2020-10-19 16:28:28 Test Item Value Reference Range Interpretation Comments Hep Bs Ag-[place] Negative Negative Test Perform ed by:[facility] (test code = [facility] - 5196-1) [place] [facility] [id number] [place], [place] [address]Yjh Director: Sukhwinder Neville M.D. Ph. D.; CLIA# [id number] [facility] HospitalHepatitis B Surface Ag w/Confirm 2020-10-19 16:28:28 Test Item Value Reference Range Interpretation Comments Hep Bs Ag-[place] Negative Negative Test Perform ed by:[place] (test code = [facility] - 5196-1) [place] [address] [place] [id number] Director: Sukhwinder Neville M.D. Ph. D.; CLIA# [id number] [facility] HospitalHepatitis B Surface Ag w/Confirm 2020-10-19 16:28:28 Test Item Value Reference Range Interpretation Comments Hep Bs Ag-[place] Negative Negative Test Perform ed by:[place] (test code = [facility] - 5196-1) [facility] ior [address] [place], [place] [address]Cmq Director: Sukhwinder Neville M.D. Ph. D.; CLIA# [id number] [facility] HospitalComplete Blood Count w/o Khifjnkfqmjc6609-29-05 09:59:09 Test Item Value Reference Range Interpretation Comments WBC (test code = 7.1 K/uL 4.0-11.0 6690-2) RBC (test code = 789-8) 2.73 See_Comment L [Au tomated message] The system PlateJoy generated this result transmitted ref erence range: 4.50 - 6 .00 M/uL. The refer ence range was not u sed to interpret this result as normal/abnor mal. Hgb (test code = 718-7) 7.9 See_Comment L [Au tomated message] The system [employer]Joy generated this result transmitted ref erence range: [...] See_Comment [Automate d message] 786-4) The system [employer] generated this result transmitted ref erence range: 31.0 - 3 6.0 gm/dL. The refe rence range was not u sed to interpret this result as normal/abnor mal. RDW-SD (test code = 54.5 fL 35.1-46.3 H 19049-7) RDW-CV (test code = 16.9 % 12.0-15.5 [...] cell differential. [Automated mess age] The system [employer]Joy generated this result transmitted ref erence range: <=0.0. T he reference range was not used to int erpret this result as normal/abnormal . Lab Interpretation Abnormal (test code = 66290-8) [facility] [place]Complete Blood Count w/o Rvclazuknrws3238-04-49 09:59:09 Test Item Value Reference Range Interpretation Comments WBC (test code = 7.1 K/uL 4.0-11.0 6690-2) RBC (test code = 789-8) 2.73 See_Comment L [Au tomated message] The system [employer]Joy generated this result transmitted ref erence range: 4.50 - 6 .00 M/uL. The refer ence range was not u sed to interpret this result as normal/abnor mal. Hgb (test code = 718-7) 7.9 See_Comment L [Au tomated message] The system [employer]Joy generated this result transmitted ref erence range: [...] See_Comment [Automate d message] 786-4) The system [employer]Joy generated this result transmitted ref erence range: 31.0 - 3 6.0 gm/dL. The refe rence range was not u sed to interpret this result as normal/abnor mal. RDW-SD (test code = 54.5 fL 35.1-46.3 H 81022-3) RDW-CV (test code = 16.9 % 12.0-15.5 [...] cell differential. [Automated mess age] The system PlateJoy generated this result transmitted ref erence range: <=0.0. T he reference range was not used to int erpret this result as normal/abnormal . Lab Interpretation Abnormal (test code = 13175-4) [facility] [place]Complete Blood Count w/o Zmtbyolngady5363-22-13 09:59:09 Test Item Value Reference Range Interpretation Comments WBC (test code = 7.1 K/uL 4.0-11.0 6690-2) RBC (test code = 789-8) 2.73 See_Comment L [Au tomated message] The system PlateJoy generated this result transmitted ref erence range: 4.50 - 6 .00 M/uL. The refer ence range was not u sed to interpret this result as normal/abnor mal. Hgb (test code = 718-7) 7.9 See_Comment L [Au tomated message] The system PlateJoy generated this result transmitted ref erence range: [...] See_Comment [Automate d message] 786-4) The system [employer] generated this result transmitted ref erence range: 31.0 - 3 6.0 gm/dL. The refe rence range was not u sed to interpret this result as normal/abnor mal. RDW-SD (test code = 54.5 fL 35.1-46.3 H 12437-0) RDW-CV (test code = 16.9 % 12.0-15.5 [...] cell differential. [Automated mess age] The system PlateJoy generated this result transmitted ref erence range: <=0.0. T he reference range was not used to int erpret this result as normal/abnormal . Lab Interpretation Abnormal (test code = 09850-9) [facility] HospitalLactic Acid, Ragkcf6340-06-98 09:42:03 Test Item Value Reference Range Interpretation Comments V Lactate (test code = 2519-7) 0.8 mmol/L 0.5-1.6 [facility] HospitalL[facility] Acid, [id number] 09:42:03 Test Item Value Reference Range Interpretation Comments V Lactate (test code = 2519-7) 0.8 mmol/L 0.5-1.6 [facility] HospitalLactic Acid, [id number] 09:42:03 Test Item Value Reference Range Interpretation Comments V Lactate (test code = 2519-7) 0.8 mmol/L 0.5-1.6 [facility] B Surface Dm5913-06-03 10:42:36 Test Item Value Reference Range Interpretation Comments HBsAg Received (test See Note HBsAg w as sent to a code = 89961) reference lab for testing. Expect results on Hepatitis B Surface Antigen w/ Conf irm within 96 hours . [facility] B Surface [id number] 10:42:36 Test Item Value Reference Range Interpretation Comments HBsAg Received (test See Note HBsAg w as sent to a code = 90887) reference lab for testing. Expect results on Hepatitis B Surface Antigen w/ Conf irm within 96 hours . [facility] B Surface [id number] 10:42:36 Test Item Value Reference Range Interpretation Comments HBsAg Received (test See Note HBsAg w as sent to a code = 25208) reference lab for testing. Expect results on Hepatitis B Surface Antigen w/ Conf irm within 96 hours . [facility]ABG[facility] 09:56:39 Test Item Value Reference Range Interpretation Comments pH Art (test code = 7.51 7.35-7.45 H Results are 2744-1) corrected for a body temp of 37C. pCO2 Art (test code = 33.9 See_Comment L [Auto mated message] 2018-10) The system [employer] generated this result transmit jigar reference range : 35.0 - 48.0 mmH g. The reference r louis was not used to interpret this result as normal/abnormal . pO2 Art (test code = 104 See_Comment [Autom ated message] 7776) The system [employer] generated this result transmit jigar reference range : 83 - 108 mmHg. The reference range was not used to interpret this result as normal/abnormal . HCO3 Art (test code = 27 mmol/L 1959-06) Base Excess Art (test 4 mmol/L -2-3 H code = 1925-7) O2 Sat Art (test code = 99 % 95-99 6512) Lab Interpretation (test Abnormal code = 41262-2) [facility] 09:56:39 Test Item Value Reference Range Interpretation Comments pH Art (test code = 7.51 7.35-7.45 H Results are 2744-1) corrected for a body temp of 37C. pCO2 Art (test code = 33.9 See_Comment L [Auto mated message] 2018-10) The system [employer] generated this result transmit jigar reference range : 35.0 - 48.0 mmH g. The reference r louis was not used to interpret this result as normal/abnormal . pO2 Art (test code = 104 See_Comment [Autom ated message] 98286) The system [employer] generated this result transmit jigar reference range : 83 - 108 mmHg. The reference range was not used to interpret this result as normal/abnormal . HCO3 Art (test code = 27 mmol/L 1959-) Base Excess Art (test 4 mmol/L -2-3 H code = 192-7) O2 Sat Art (test code = 99 % 95-99 6512) Lab Interpretation (test Abnormal code = 58774-4) [facility] 09:56:39 Test Item Value Reference Range Interpretation Comments pH Art (test code = 7.51 7.35-7.45 H Results are 2744-1) corrected for a body temp of 37C. pCO2 Art (test code = 33.9 See_Comment L [Auto mated message] 2018-10) The system [employer] generated this result transmit jigar reference range : 35.0 - 48.0 mmH g. The reference r louis was not used to interpret this result as normal/abnormal . pO2 Art (test code = 104 See_Comment [Autom ated message] 6836) The system [employer] generated this result transmit jigar reference range : 83 - 108 mmHg. The reference range was not used to interpret this result as normal/abnormal . HCO3 Art (test code = 27 mmol/L 1959-06) Base Excess Art (test 4 mmol/L -2-3 H code = 1924-7) O2 Sat Art (test code = 99 % 95-99 6512) Lab Interpretation (test Abnormal code = 64334-6) [facility] HospitalVancomycin Level Ttreis7505-11-02 06:58:59 Test Item Value Reference Range Interpretation [...] report ed is the samplecollectio n date. [facility] HospitalVancomycin Level Qungkt6834-98-73 06:58:59 Test Item Value Reference Range Interpretation [...] previous dose i s not 8000) [facility]. The date report ed is the samplecollectio n date. [facility] HospitalVancomycin Level [id number] 06:58:59 Test Item Value Reference Range Interpretation [...] report ed is the samplecollectio n date. [facility] HospitalMRSA Screening Jdjxikr9393-62-31 21:32:10 Test Item Value Reference Range Interpretation Comments Final Report (test No Methicillin resistant code = 8488) Staphylococcus aureus isolated. Path Review (test The results have been code = 8492) reviewed and electronically signed by Pathologist:Mary Last MD, PhD #[id number] [facility] CampusSA Screening Fiqfiyc2206-14-42 21:32:10 Test Item Value Reference Range Interpretation Comments Final Report (test No Methicillin resistant code = 8488) Staphylococcus aureus isolated. Path Review (test The results have been code = 8492) reviewed and electronically signed by Pathologist:Mary Last MD, PhD #[id number] [facility] CampusSA Screening Xadcayy7134-84-95 21:32:10 Test Item Value Reference Range Interpretation Comments Final Report (test No Methicillin resistant code = 8488) Staphylococcus aureus isolated. Path Review (test The results have been code = 8492) reviewed and electronically signed by Pathologist:Mary Last MD, PhD #[id number] [facility] HospitalGeneral Laboratory Add-On Test 2020-10-10 07:25:00 Test Item Value Reference Range Interpretation Comments Ordered (test code = 6568) Test Added Test Needed (test code = 7604) mag NASH phos [facility] HospitalGeneacmc [facility] Add-On Test 2020-10-10 07:25:00 Test Item Value Reference Range Interpretation Comments Ordered (test code = 6568) Test Added Test Needed (test code = 7604) mag NASH phos [facility] Laboratory Add-On Test 2020-10-10 07:25:00 Test Item Value Reference Range Interpretation Comments Ordered (test code = 6568) Test Added Test Needed (test code = 7604) mag NASH phos [facility] HospitalCalcium Ionized, Yytmxv1352-25-03 13:46:31 Test Item Value Reference Range Interpretation Comments V Ion Ca (test code = 24783-1) 1.14 mmol/L 1.15-1.29 L Lab Interpretation (test code = Abnormal 94989-2) [facility] HospitalCalcium Ionized, Gnlucw2975-70-60 13:46:31 Test Item Value Reference Range Interpretation Comments V Ion Ca (test code = 14719-1) 1.14 mmol/L 1.15-1.29 L Lab Interpretation (test code = Abnormal 50059-5) [facility] HospitalCalcium Ionized, Opclfj8743-21-34 13:46:31 Test Item Value Reference Range Interpretation Comments V Ion Ca (test code = 89272-5) 1.14 mmol/L 1.15-1.29 L Lab Interpretation (test code = Abnormal 90203-5) [facility] HospitalLegionella Fqryggw0498-12-73 21:36:07 Test Item Value Reference Range Interpretation Comments Final Report (test No Legionella species code = 8488) isolated Path Review - The results have been Legionella (test code reviewed and = 8480) electronically signed by Pathologist:Mary Last MD, PhD #[id number] DARCI (test code = DARCI) Label says [facility] & [facility] HospitalLegionella Znwzdpy9007-08-90 21:36:07 Test Item Value Reference Range Interpretation Comments Final Report (test No Legionella species code = 8488) isolated Path Review - The results have been Legionella (test code reviewed and = 8480) electronically signed by Pathologist:Mary Last MD, PhD #[id number] DARCI (test code = DARCI) Label says L & RUL [facility] HospitalLegionella Ieqnpao1013-53-22 21:36:07 Test Item Value Reference Range Interpretation Comments Final Report (test No Legionella species code = 8488) isolated Path Review - The results have been Legionella (test code reviewed and = 8480) electronically signed by Pathologist:Mary Last MD, PhD #[id number] DARCI (test code = DARCI) Label says L & RUL [facility] HospitalTMP Aecnvzjvx3417-42-46 15:15:29 Test Item Value Reference Range Interpretation Comments TMP Exception Patient A Pos ____ Interp (test transfused with O Pos code = 7544) platelets. This is due to temporary _MAYRIN COR DYLAN unavailability of ABO SINGH ,Dictated compatible platelets by: CHICA SINGH,Dictated Date/Time: 10.05.2020 10:1 5 AM CDT Transcribed Date/Time: 10.05.2020 10:1 5 AM CDTElectronical ly Signed By: [facility], on 10.05.2020 10:1 5 AM [facility] Cugamkgns5095-63-87 15:15:29 Test Item Value Reference Range Interpretation Comments TMP Exception Patient A Pos ____ Interp (test transfused with O Pos code = 7544) platelets. This is due to temporary _MAYRIN COR DYLAN unavailability of ABO SINGH ,Dictated compatible platelets by: CHICA SINGH,Dictated Date/Time: 10.05.2020 10:1 5 AM CDT Transcribed Date/Time: 10.05.2020 10:1 5 AM CDTElectronical ly Signed By: [facility], on 10.05.2020 10:1 5 AM [facility] Wcfxkynll7042-21-21 15:15:29 Test Item Value Reference Range Interpretation Comments TMP Exception Patient A Pos ____ Interp (test transfused with O Pos code = 7544) platelets. This is due to temporary _MAYRIN COR DYLAN unavailability of ABO SINGH ,Dictated compatible platelets by: CHICA SINGH,Dictated Date/Time: 10.05.2020 10:1 5 AM CDT Transcribed Date/Time: 10.05.2020 10:1 5 AM CDTElectronical ly Signed By: JENNA SINGH on 10.05.2020 10:1 5 AM [facility] HospitalPrepare platelets:Transfusion Date: 10/04/2020; Transfusion Indications: Actively Bleeding; G707, 1 Ioojr9936-53-36 21:47:10 Test Item Value Reference Range Interpretation Comments PLT Product Ready Approved Platelet o rder (test code = [place] been 21458-9) approved. Order Form 3 when ready for product issue. Expect 2 hours for platelet concentration. Unit Number (test [id number] code = 7002) Product Code (test [id number] code = 7003) Unit Expiration [id number] (test code = 071254) Unit Blood Type 5100 (test code = 7004) Product Code Text PLATELETS Pooled IR (test code = 361166) LR [place] Number of Units in 4 Pool (test code = 861248) Unit Irradiated IRRADIATED (test code = 032787) Unit Leukoreduced LEUKOREDUCED (test code = 307214) Dispense Status ISSUED (test code = 7001) Unit Blood Type O Positive (test code = 7005) Product Pool Table Mechanic .BPAM ___ Location (test code = 466097) [facility] HospitalPrepare platelets:Transfusion Date: 10/04/2020; Transfusion Indications: Actively Bleeding; G707, 1 [id number] 21:47:10 Test Item Value Reference Range Interpretation Comments PLT Product Ready Approved Platelet o rder (test code = [place] been 81873-1) approved. Order Form 3 when ready for product issue. Expect 2 hours for platelet concentration. Unit Number (test [id number] code = 7002) Product Code (test S2362O08 code = 7003) Unit Expiration [id number] (test code = 603620) Unit Blood Type 5100 (test code = 7004) Product Code Text PLATELETS Pooled IR (test code = 983713) LR [place] Number of Units in 4 Pool (test code = 503940) Unit Irradiated IRRADIATED (test code = 712832) Unit Leukoreduced LEUKOREDUCED (test code = 147793) Dispense Status ISSUED (test code = 7001) Unit Blood Type O Positive (test code = 7005) Product Pool Table Mechanic .BPAM ___ Location (test code = 803336) [facility] HospitalPrepare platelets:Transfusion Date: 10/04/2020; Transfusion Indications: Actively Bleeding; G707, 1 [id number] 21:47:10 Test Item Value Reference Range Interpretation Comments PLT Product Ready Approved Platelet o rder (test code = has been 31878-8) approved. Order Form 3 when ready for product issue. Expect 2 hours for platelet concentration. Unit Number (test [id number] code = 7002) Product Code (test N4229I93 code = 7003) Unit Expiration [id number] (test code = 168192) Unit Blood Type 5100 (test code = 7004) Product Code Text PLATELETS Pooled IR (test code = 877602) LR [place] Number of Units in 4 Pool (test code = 013428) Unit Irradiated IRRADIATED (test code = 260835) Unit Leukoreduced LEUKOREDUCED (test code = 061142) Dispense Status ISSUED (test code = 7001) Unit Blood Type O Positive (test code = 7005) Product Pool Table Mechanic .BPAM ___ Location (test code = 805897) [facility] HospitalPLT Product Ready for Pool Table Mechanic 2020-10-04 21:05:07 Test Item Value Reference Range Interpretation Comments PLT Product Ready B2 Blood Bank Product i s ready for for Pool Table Mechanic (test seed cone picker on October 04, code = 353850) 2020 16:05:02 CDT. [facility] HospitalPLT Product Ready for Pool Table Mechanic 2020-10-04 21:05:07 Test Item Value Reference Range Interpretation Comments PLT Product Ready B2 Blood Bank Product i s ready for for Pool Table Mechanic (test seed cone picker on October 04, code = 874051) 2020 16:05:02 CDT. [facility] HospitalPLT Product Ready for Pool Table Mechanic 2020-10-04 21:05:07 Test Item Value Reference Range Interpretation Comments PLT Product Ready B2 Blood Bank Product i s ready for for Pool Table Mechanic (test seed cone picker on October 04, code = 613058) 2020 16:05:02 CDT. [facility] HospitalFibrinogen2021-07-11 18:27:11 Test Item Value Reference Range Interpretation Comments Fibrinogen (test code = 5610) 193 mg/dL 214-503 L Lab Interpretation (test code = Abnormal 08332-9) [facility] HospitalFibrinogen2021-07-11 18:27:11 Test Item Value Reference Range Interpretation Comments Fibrinogen (test code = 5610) 193 mg/dL 214-503 L Lab Interpretation (test code = Abnormal 55619-5) [facility] HospitalFibrinogen2021-07-11 18:27:11 Test Item Value Reference Range Interpretation Comments Fibrinogen (test code = 5610) 193 mg/dL 214-503 L Lab Interpretation (test code = Abnormal 55556-7) [facility] HospitalCytology Non-Receiving Associate Interpretation 2020-10-02 23:36:05 Test Item Value Reference Range Interpretation Comments Gross Description (test h7kzpSKvABAneAIFIR code = 1558599121) ImY9svphTpDMFnuWIs G6NokypzQPciKO5pSX 4gtRpxgJLcuIXrDC1J XGRlZmYxXHBhcGVydz EyMjQwXHBhcGVyaDE1 MEEmWA6okozhFUhiRO hqZYNcklZ7XORpoVQw J0MmECVbIE3etrraOD Y2NSefdT5svfCIOxsu Si7crHNreRlqZmTuOu NoYXJzZXQwXGZuaWwg RFNgNPm6yA0DKxpmJ8 8wr7X2Htn5CYThBMIe Y6ReOT1vTTAldODrT3 0CRjpiWWR6DDWPHgjv YKLfKN8He9wlTJLafU DkQUR1ZIqweYGeIWNv JAHxXRg6JAWbUWpfmZ VxZV4ffQpnEnlguWhm g6XaeMBxQWrsRZKpSB QzRXtqNOCiNG0PZpZn MPYpBVO8EFppCIl0LD b7RC5GAfKtSYCiTGv8 ZGflYdPqJAv4ORrxPH 3NCHj2Iyg4GuU1AQW5 CIT0VVLsGLVcUlDlFZ YgQXJpYWwgXFxmcyAx MCBcXGZiIFxcZmwgXF wmS99whXhvuB2tZwjd tsPkMUE0TNVjuyPFWt xwbGFpblxlcGljTmVz dERvYzEgDQpcbHRycG FyXGxpbjBccmluMCAN ClxsdHJjaFxjZjFcZn MyMCAxIERpZmYgUXVp lbuhSNDNNUDjA9XjlW 4xY1owTIOvORVdsbJR FkH1GI6mBkIqvTUbmC HvgBksEnrurDC1QEol IcttqJ7hgARJACSNPg rCLxmoccYmNP9APLVU RsAZBE16YzI7VrL6RT wxfXtcZmxkcnNsdCBc TzJXsR2xjUpelMJhyG ZtoD76WUfzXZEpz0Sr Q7Jbu0zwrTHxSAfaLp vjrJRbysJ5AMkADNSP ZJiOJjMvSL2sDOxTLY RCRUdJTnwyfXtcZmxk beUapKBbJaXVuV9gtS 0jm2dwtPHyPRuoJmzp oNLdglE7MAaSNOWLUU qVHeBsKW8aIBpBRSNK GlT7Al55CLTyMXTpdC WfWUtuE281QKCpKMlc EWc4yoKgFAOel9OzE6 QoI2TcBXBiKmFbJHFr xMmmn3agfIWhBOmyGa ukbREqwhD1AUvOKPCD DZmCOpFgVF6lGWlNM3 SEZtH5FpL8JzC5VWpp fXtcZmxkcnNsdCBcJz RRqT6vtXavtD8ipXCr X8ljO0LkWZKtPhNrjI BcOX5QNLPnc5ZuK2O6 YHAeKKrdj6twYUZbLV tjq0HuUXcMDZSGTW8W SP6utXZ8VGvQGTNXZ5 kVdGJ1YyDfqJV5U298 XGZsZHJzbHQgXCcxQ3 23R2LxV3zvDU0qE08e G3FwgGPuuLCzPNL7JF G7tK5gHU48jwlixVpv nHxhsfL3ZQFqsufydI N9ZIOtWHogv8ceVHZx ZPzco0MtAPwMPHDAVT 6BGD2hzCV6ULqQMOFC MCyzLJF7HYgtvXP9h7 iuhPTud0a4FJapPTJ2 fVxwbGFpblxsdHJjaF xjZjFcZnMyMFxwYXIg XImGdLDxqKe6XKuahf GKUCNPCBvWQ2QpWNJY DCNZAEEoZaLQBS1yXz F0KgW9AD53FmhmUzL9 PkHigSV1DGBVGZXPFJ cJX4EuMSQVDAODXHNv SS9LDAuPRWFZUILFK2 5QSYPHYECVX3PAD5xR YRReq6EhptuRPCzIO7 ZNWE4CMRSPLOAFZK4Q LuMpVQkSU2ILP3kWXD JfTUVUQURBVEFfQkVH YM2bLVu1Tuv3sLV6Yw K9BpI3HiueHD9fNTpN n24bDU16cmF3rH9rGA BcP4iodHS6YLjvILC2 WIm6KjDdLVFdbWTbQJ NvbmNlbnRyYXRlZCBi tTPfqSNnA8NboPLrHb YqRHMhm58rmCPkaP2d aJUbXrfzDQ9vPItZV9 XOX4sOJZVeVDDOKBPO AEQrNX5XBPzWEZ1FMM JfTUVUQURBVEFfQkVH YI0yVQuKGP7BPRPeGJ GOIWTHGFHfII3ESZFD KU1AWBZJAZNZT92UOU GSDBDNQ9VDX8cLZDON POACJxJPZbPAXV4SYL VNUCCDUA6ULiJUEtby bGFpblxlcGljTmVzdE OoCiMhlFcflM78WBCl vEPuADC4PK3bBNBcaq veQJRcLPChFTS9MGik oD23vZUlRCKlJXMgrZ AkwN5LWIPcNUL0TCrp sO46qRCoNN5RADTpPW D9TIKolXXkREP1DT0r fQ0KfQ== Major Classification (test NFMC/benign code = 9839) Diagnosis (test code = 34) k0kaqGRmAJXsgKP5UP XeRTCyt7tue4RzzYSi cGFyXGpleHBhbmRcbm 88wLS0vR34CF0oYIZk DyW5UVOnlzB2Yfu8TF QrYOBbnTDhZ637z5io o2jxknRppCM3JEXeAA PdA9QeDI7cUVDsiIYm L52vjJPeQIZ1CPKbON SquMJiACEeNTI2HYUi qFViO4dfSFRaSC2xhr dyMTgwMFxtYXJndDE0 XTRcoGJgH2DaNCYoZK zoRZEqiro0PrOjSc8r dGVyeTcyMFxwYXJkXH NiGAsyFPFqIyYvA9By BHIvFXa6hpsmUYAsC9 o3KCVvzMOuDClrNdFb INPhb12ehA3ztEFwh3 iotwQnHIWtT2Z8LNEk nrj5IQHeyNBjLLiwKt IwXGxpbjcyMFxjZjAg Xp9ytKMopCedBK50OI ZvvGcjUNoyHG73cASe HRAzaPHwPX5zNLBulj MzKBBsSJ3tFVFbgDSh IEdNUyBzdGFpbiwgbm VtOIUpigSfMb8cWIU1 fvkytTTaf7GzqzEkiR FyIEdNUyBzdGFpbiwg akQkUBBmbjVcYl2sXK HiAHEez2H1j1Qbq9uq YXIgSXJvbiBzdGFpbi geOXWdMP72oPBiwVai bmVnYXRpdmVccGFyfQ == Comment (test code = 9835) c5yviUDmTSEhkEA5OA KlNEXyv9fbm3RtjMNb cGFyXGpleHBhbmRcbm 82lMI6rQ56DP0fPQWl JyB2OPHkdyY1Zyy5WK MxSUYuhIKnK571h3ac q6takqBmkPL3oLizXB WhhfszRbZ5SFsxORWs odriRSn4MTxdANAekJ Z5UQUisKNoK9UxGAUi OP2yljf1BHB3WRixJA JrRkJ0ZPVnuWPbCLCn zNwuSGkji414OQO4Iu LsWVClvuJfiLwfrU1r WaGsMLEBi474lx7uzk VxteQjNGTnfc8tfxhc dGUuIFxwYXJ9 Retained/Biomarker Testing n9thhZDvZTQjiZE1QK (test code = 9838) VjVFTsj7qrm0VemVJk cGFyXGpleHBhbmRcbm 32sSX5dW99PM4rUVSh TtQ2AXMwsjB0Kbw5DX IoDPBfvSKpE758z6za i0rcyhRkfIP2dUmrTQ YysituMqF6JKfrUEIy wbheHHi7SMfqRCOwtQ T7QYMcuTKyE9EhMPTt CQ7ivxe2PQT3MKyfEB LoHrB2GQHbyFYdBNIf wJcdXYike411BQZ0Gi XwJXFelcVujZrpxL8h ZnMyMCBTUjogMiBTLC AyIFNQIFxwYXJ9 Informational Points (test g7zbyGEbFSAtaNCqMf code = 9836) OrYGLuCUOud1hyIKFv bGFuZzEwMzNcZnRuYm nqvQUgKZKvDoWzz1xg w351xWHno4szQHDeHt Q6lTBqIEJdgKKfP403 HIXcEVklr5arr8OfER PvvDZep3Y7UTZIWNuy HPGYIMo0x2kiVlHySj B3bJLkWCvdR0ftveHl lXLtNWNcQEt0wR18MP FyvX5ukVJfYRhrkiIn ZxE8BOfnAMVxNlG6QV AedLCiWYXkC9gmMTYh XGdyZWVuMFxibHVlMC O7qRprn1P5gWYcfBRa dHtcZjBcZnMyMiBOb3 FyGIf9nGwxC8KrFORh KqP3bZBjCJWcUTeyAI XbZUZwbwT9aV29LVto pcR3hCHar3Lih77ls7 21nT7suYRdXTN4XCZe MUIvvNAsCBSuDYF6TL FytMIhI7pgLLVrEP1e cmdyMTgwMFxtYXJndD G8OGPftOGkE8KhAFZd QJfoDNKazey0EtNbMi 3tcRGqrGbxMAcvr5xn s5nnyXAjGiw8KQQoJj PuOswjGMnuo6Ylp9mn LUAicj3yIED1iVDxsT adm1R7cZIaHHLydYVl olMnRNRcBkP5BTfbSU 7nvz69XOZsWXE5xf1q bGNccGdicmRyaGVhZF iaL0QtBPIpz862DANy T0XyYARjp5H1duCvQm KcEOHdpRO9saA5CWOx ACi9oNAetyL2blQemW JaJ2ibaD7tDWPeRC6u ezydt7zmKMukRJfgVX QuiVJ0ijE4YPTvePOn C7NqyY0uVDDwHIyoUD Kmnyt8ChMuBg9uqGSk eTcyMFxzYmtwYWdlXH BnbmNvbnRccGduZGVj XHBsYWluXHBsYWluXG YwXGZzMjRccWxccGxh yX0vVqOzDpMiGYabAH 8gLPVeF6kvcWPaRVMy XSZwI2czVnNhoC6lcF koLRehglQ4GQshS65v NDJ1DSU0uoRlCTGubv XoZRGiCBLzBD4weBZu VRDfQLYpAV9rETK1ML xvcGVkIGFuZCBwZXJm o0JfZX3oCERlqORcOM Y3LKKkc8HdC8XeDYT9 TMLgcX5aPQMzgYPZKW BNRCBBbmRlcnNvbiBQ DLZjy4gyN1cnIB5eEL exAe4pUGMrbtizEKYa aWNpbmUuIFRoZXNlIH Bxx7FeNOmbppKelb37 VXKoAQ2cl4YoW5afmM YktGr0YPDlSDOoXGKp u2EjCLPehm00UEOaKn yzcZyrIRLzKs7yKa2m STWqwkCuEQH4YlXMLD 6itwxptTUomZxpkq4c XHBsYWluXGYyXGZzMj JcbGFuZzEwMzNcaGlj aFxmMlxkYmNoXGYyXG zjK3lmCxPpSrDmZzwg YXJ9 [facility]anaCytology Non-Receiving Associate Interpretation 2020-10-02 23:36:05 Test Item Value Reference Range Interpretation Comments Gross Description (test g3zetFOuODImsPCRRG code = [id number]) KkY6orhdAnMMMnqQEg B2YexmefAJrtOV7nVV 6npUmgqLLhdLZuJS0K XGRlZmYxXHBhcGVydz EyMjQwXHBhcGVyaDE1 FJGvMP1sjtnjVXtyEN dqYDIadbZ5OQVenFOs S1KuETMxND4deylmMK A7BJhjaF6ucwUNDmbe Sr9idRTavBnqCiYoMo NoYXJzZXQwXGZuaWwg TAKtQTq3gH7XEauvQ0 6ed4T6Xvo6RGDtAUKz N0KrSN3vNBCooUWyQ8 1FFxkyARY1KZYFEwyy KISqKZ4Jf5zsVDWuwC EpXEP5EPatiNSjYTOl DDTzNGp9MLFcQWbdrD JwQI4mdNttXrpfpUir k7MhwIQyKEwjVLVqRP YbYFkdGOIyPQ2HCgRa DIMyYBW1EIclNAw1RR v1IV4ASkSkEGGiZOw1 WRwsTjVeRCc7GYvjMR 5NLWt0Czw5LbE9PJA4 CEG0IRPgNRUfFpAqEA YgQXJpYWwgXFxmcyAx MCBcXGZiIFxcZmwgXF jgU33jiAkxnO9pThwt gzNlKXJ1JUKtrtAAIb xwbGFpblxlcGljTmVz dERvYzEgDQpcbHRycG FyXGxpbjBccmluMCAN ClxsdHJjaFxjZjFcZn MyMCAxIERpZmYgUXVp utliAHHJRURmL1TorF 9sG7qaGDYmBDZrhcOU RrK3QR2bEgSgjGEmaK RkmXvzQskchYZ9LJxm XiystR2zlBXPHXDBNz pWSpbzwdHsJM0UEZPC YaTLPI99BzD7BpE9TT wxfXtcZmxkcnNsdCBc PiAEyP2hzTsvoIDqiI QgjU14CKkdOFMkh7Bg Y1Rkg2voeIOjUIsdBd uvvHIqyiA1SArFILNI YDhFZdBxKM0pJRkEOQ RCRUdJTnwyfXtcZmxk mkSgzZHvQxSQiE8pzJ 2pz9xloUWnXJbfTxib pWEltyD6BCdXKZELXK tOOaVrEA1oEXxYNMIK UbO9Xb85QXRqPUHpkP RmVNdnT600KNRdCUik BPv8vqRwQEGwl6FmK2 PfC3JxVGGaQaRiVJLi eBujv3sbsNBgDNskFf sheAHtbpD8ROmLWCTL XZfNWnYiTM2fJExVU1 HSZsT9CtO2GpL0PNxo fXtcZmxkcnNsdCBcJz SPhQ2hfXvmvU5emFMt O2ylX7XgRBQeEoMuvW OvRW0XVNZkj1AsX5W2 PTOwSCutc7tnLICcQS tkt4ZwTIxVJZCMSX7E AM2szUB0SRbGIZGOF7 eKkEA0KqUfbDS6R888 XGZsZHJzbHQgXCcxQ3 36A9EvN8apSX6wJ46e E3TkeVDxcKZcPJI9NS L8dD0fIO85xhjchWbz cGzmxiA0ZAKntbhrpV Q1QVBlPUiuz2ntLVMt SImcv4ZkLQmDKKYOXB 9TMQ5yqGH1QRyGJJDM MBfyRCL5KRdceKH4k2 hzoHLkw2u9PKqjQEM9 fVxwbGFpblxsdHJjaF xjZjFcZnMyMFxwYXIg WFqMoFClzFh9OTqvap DEEBOBSVhHJ2HtERAV LQXFFLXyQbGVHZ5fEe F1PbO6OO72XunhUaW9 BgJfsFG5MITYTDFYYU dMT1KbBOKOWNGJJBRd LX9HVNnADPAWAPUHN6 0WPVRVDRTNA4WOX3kZ TVDfs7HozamPYRySD9 XZIS0GMTAOPOXPPS7T VpBdEOpMH3XUD3hCDY JfTUVUQURBVEFfQkVH QS0tGYl5Ggt7kKS5Wy F0HzP6SfbmEB0eBChM f22tAY44ylZ0aV8sHS OoK0dllOK7PBjcHAD3 EOt1XrDyIBZbvRRpMW NvbmNlbnRyYXRlZCBi bQKizQZvD3HdtNRzBs ThSXNtu47jsNFulJ3n xUJrXzhlWH7hMNrGH6 TQN0vFVFWlQVODDCGS ZSXzRZ2EYVvTLH5DSI JfTUVUQURBVEFfQkVH UX1lJXlCBM4WGNFgTC VQACYGPPDaOX1VUNWR LM8DUBVSYEMOJ29ADC AOXLSVH0DVP4kXZFTK SVIBOzTQLpQDAJ9CFM OSEPFYTX4MRfCBIpmo bGFpblxlcGljTmVzdE WbEqTwmFljyD27ILEl cZRoFGU9WD1pTYKnhr zhDCCvTBKiNDE5AIzp iW75tOTzWINbLCKyjJ VnkI4JRRWxVTD4OWlb hX22oPNpZV5AFIEtUF F1PCKmnNChNPO9EU8c fQ0KfQ== Major Classification (test NFMC/benign code = 9839) Diagnosis (test code = 34) a5hvgUZtOWHwtRM2NC JeSTAvc0wnk2LpsLIb cGFyXGpleHBhbmRcbm 63cSB1kA27QZ9cCGRn UnU9TDSishQ2Ikx3RP OvAJUqsZIiB026z3go o3jfnlYqiSU8WAUsHG KnC5OiJN4rYETrmASf P65zyLWgHGZ0HOVbRO NmlGNyAWFbRFO3EFHz tDNtJ5pgLURaIO0kxu dyMTgwMFxtYXJndDE0 XXTsbOTsR3AwRUBnRA bcLSYjloq6VnVcFn0p dGVyeTcyMFxwYXJkXH DoEElyKRRkJwGnW4Mp RLMzZXk9foeuUUUaM5 v0HPGksWJbRFvgIvHj RXVax93ecE5vuWYde2 gvalGeSCKmY1N5IAWw zwo7EWJdrWYgCWvfKc IwXGxpbjcyMFxjZjAg Aj6ieQLahTxnID66FN KftBruQMheRH43vOJz GAImoLKxKC8zJFYwsq MqJUOnHR2pVWEtxBLk IEdNUyBzdGFpbiwgbm OwSLNwdeCjLr4qFNQ0 uxyyuAXsn4SxldFjlC FyIEdNUyBzdGFpbiwg scZlJDYmigXmJt1uKC KqIZWiv4K3s6Haj5lc YXIgSXJvbiBzdGFpbi fzAGXvNR60zILojVaq bmVnYXRpdmVccGFyfQ == Comment (test code = 9835) m0jwvIEmAOMvyLU0RK EiFNRcu6npx6OoxAUi cGFyXGpleHBhbmRcbm 75jOI3cV96MC2bRTEq KyH7XFCfoeH5Hyt0AF BtJQBvuYHtO865p7ei o2zryiDqjYH6yGgpBH IrtiqrTeU8BRwuNBPv ihzmYKb7FGrcRQHubK A1GPArmFIcY1SpSTYj PL9ntcm4BFR4NSvyWD OyPpC7NUYlqGLvXVQh kIvrZBold946KKZ1Ra MqYCWcagQflPneyC0x JfKgECVUk320gn8oiq CtojCxECZswx3wurcy dGUuIFxwYXJ9 Retained/Biomarker Testing m1sucDKdYKKgdBL4PE (test code = 9838) SxRRPuw7rdu8IrkANp cGFyXGpleHBhbmRcbm 48oED8lC88JW1bDOXz LbX8HESfqyR8Wun2XI ZiGMHiwZIqR397i6ex z4sksiPzvFP1hGbfER WsgrczVvR5TVcbERMz toxvIQb7NFqtCIZefP C7AHJmgPVoD5IwKWFd BR4ysqm3LQL9SPemQT NvRwU8QXUapFMzZRMr iSipLMuxf532DRS8Cf PqHWSfffJcoDwmiM8t ZnMyMCBTUjogMiBTLC AyIFNQIFxwYXJ9 Informational Points (test e0kagOYnULRxtPVdIh code = 9836) OiDCZmIMYeb1icPARv bGFuZzEwMzNcZnRuYm cysJVtYHIwBfYtu6xb a772pOTvr1agSMTgHp F7vIKsMNZqkPXtG323 ZWQhPWhme4pdd9KlLR AloRUyv4E1XUVBFEol AZQMZJy2n7yuDcOdQv S3jIAtHHtaP7gjtkSb kGNlKJDlKLr6wU02WF MakR1qzMGqTZbyzeQg RlZ2HLlhOWVhJjI7VB UezMYbYPVxU6feLYVt XGdyZWVuMFxibHVlMC O5nBfrx7V5gQLwlMLw dHtcZjBcZnMyMiBOb3 KmRKc3fKneZ5ZkIUDf NrN3fASsSELdLKkiOX FqDMSeaxY9sO73NKbn bvJ6yJZmg6Rfc62gz1 83sU8ajDAtNES2NSQm KGMqgIVpFXRgYFG9HL LimEOvZ1xkISEqJT6e cmdyMTgwMFxtYXJndD X1BTThdCVvX1OsRHQj QBsaSDUaxpi5RbIgYn 9yeVFkzNmkQWfud4oj v3qteXSfWwx9TGHsHf ThUyulSPeir5Lud0vk WXCgmm9iXES7iQOasW kkg2W2eOMrWFDjiCLi ljKyINMzPkU7IEijFX 0pms86DKKfRWA4pl9z bGNccGdicmRyaGVhZF tqO7XjIZYqy040PIPu A2PqFVAmw7S5nsAdYr YyRVIiwXT5edR0YTXv XAy0vCKhvqR7xbUxrS EsJ5pndU4oDGBnZW5b vibjz4lrGUyqCRwkCT WmnUS7xsJ0ZISttCUc Z1MkyK9vAXReLFvnYO Zztjf4YvNbZr0iaUUo eTcyMFxzYmtwYWdlXH BnbmNvbnRccGduZGVj XHBsYWluXHBsYWluXG YwXGZzMjRccWxccGxh tC1pEnElGpUsWYluGX 6pVUHkB1gypWQdAJIw TQLqA2fuSdIugN9ixW wsCZamjjY5YZiwN84u NBE8QTU6bcLpKZComs NlIGOnVLBrAF5uuZNd QRTsZVMcZO7rWVT6RG xvcGVkIGFuZCBwZXJm v0YiMK2aYKVssJNlRB P2GFEbr9DlH4LtTTY2 YSFkrB4xHHEtpGSFFV BNRCBBbmRlcnNvbiBQ LGJfe2qoE9bcWG1mCO vpEe9mTDKbccdoUANi aWNpbmUuIFRoZXNlIH Iqe3PsEOtnztIyvp86 LKQnUK6ba5DgM4qnrP UqsRu9VWYqWVRcMUYk s6ApMVAydc86GZXoZd xmcJmjGVCqPk9nJb9k IFKgkbBvGFD8WpNPSF 0szdkccUDvfJqfaq3i XHBsYWluXGYyXGZzMj JcbGFuZzEwMzNcaGlj aFxmMlxkYmNoXGYyXG hbD4rsYnMmFcYlEacg YXJ9 [facility] Non-Receiving Associate Interpretation 2020-10-02 23:36:05 Test Item Value Reference Range Interpretation Comments Gross Description (test g5qwxJAhZMUkxKYOBA code = [id number]) UtI9ystpPeIXLzsCDn F4GckslnOTanLC3hRH 8rbLaknKFvxJAgMZ7S XGRlZmYxXHBhcGVydz EyMjQwXHBhcGVyaDE1 VYCbPX6pnsjwQNjkQL hjRYMqdzU6NQKyeMTk Q5UvMHXhCC0xexwhIH W4MOhazY8pxiYLGwll Io2zwCTzsGmjSkYxQu NoYXJzZXQwXGZuaWwg FIScAFe8qB4KNawnD1 2mf6X9Cfi2WCMvUZLe Z7KgHU0cAJNacQOfL8 7OFsvtXTY8WEVQFojw TUIcWA6Hn6olFWYioQ XdFEI3QTzayZOiUOVx SDTdTHz2INJmUEahtY TxJV1gwRrfFzlktXby e2QgvXSxBEkrMVFxHW BaLWuwBVPrGF5JAsQq HXRrFQX5FTouWAv8JY s0AG6OExJaBSLrVWi9 KEslWtVrIWi6QXzlGS 0EEUp0Xfg3AgZ6HHC8 YWJ0EPAyQIBfVfGvEW YgQXJpYWwgXFxmcyAx MCBcXGZiIFxcZmwgXF ycJ34jeYqvfC3iTzsn hqYzRSQ9UGRzwlQXDe xwbGFpblxlcGljTmVz dERvYzEgDQpcbHRycG FyXGxpbjBccmluMCAN ClxsdHJjaFxjZjFcZn MyMCAxIERpZmYgUXVp kvooADXKWZQrZ4VcpR 6aL0yhLMGeIOUatrXL TwU9YC4oNqZtnBQckF WfuXgvEqmntRF6GJcu MdrjzY4elUOKBHXETf hLAjolekLaZW1EDRTM XqEXDA83FhP7OuH5MR wxfXtcZmxkcnNsdCBc HpHBzF6kmFgqbEIvkR HxtB43SCrqLOQbf6Mh O8Xsu5mioHAaBHynBu dkeBHbbiG5PAzQJNWC XLxOXqIgEQ7wPFnSHT RCRUdJTnwyfXtcZmxk aaTxiYSgYqNFpJ8nsZ 8wc4mmnBVdGRidHmwu bXVoslP3PRnKXKYXQK hWFlOmLE5mKTgKKEPR CcB1Ns35UGLoXXKwjS TaHBewW215XVMzKHbg PCd9gdYeXIMsf8PoU1 OiS8FsNZZpXvWgYCHi vVbyr6txgJPkEEknCc njcQGqweB1EQfXVDVY WCjTFhOnLL1sNZeRR5 GJKoP3DlQ4WuP1JCis fXtcZmxkcnNsdCBcJz KJsG1jrUldcE7ogTDm F2muJ7BaGXExHyWkiA HmBB4BCTTuh3KnU7M3 FCOsZYwqu3qtPTRhDW sfn8TfKUeIBQHYVJ7J LC3smLX1TZpPOQIQY2 cCbQE3EiPifLE5F047 XGZsZHJzbHQgXCcxQ3 94W9RfE1neQI6iR03k W9HfxXOmzSRhVCF1LP R8dI0aRY20bscigAny cYyozyZ5TJTchfhcxK O4AXVlBEcmj5rxFELb SDopb5KfVSwNMZSTAA 0KGC7frOP0GXkGVHNH TUpqEYN9SLgrbJQ8b6 pivSPay1v4FPbaLCW2 fVxwbGFpblxsdHJjaF xjZjFcZnMyMFxwYXIg RWeByCOckSw4PXdklu PHERTWHOuDB6XiAAKV PGOACRDfQxTFER6aRk H7WqN5HR94WiqlOtR0 YoNjiNL0HZLIKJANQI jTU6WdHKYKGRYGHQDm PV0GSTwEUKZGVEVYW5 9AFLUOWBEMT5KHR2lP CCRsz0GhhayNBRySH2 PQTL0CLJIFXLEBRR9U EjOpIMhQY0XHO6nCDN JfTUVUQURBVEFfQkVH CY3eJEa6Lnq2lEU9Vr D8JqL5LwymJY5jXIyV w35wRY15jcY9fP0pKQ WmZ5daoKX5RXfiISR6 ILl3TeKpMVQgrHLnDV NvbmNlbnRyYXRlZCBi yMBzcVYfP4LxtKJnNn OfWJIpu02duBKhgG1u jJCvAfmoPG5oERnCM4 FUD4iWBPSnHNQSFPAZ LSTxZK1GWFlPQC1JXI JfTUVUQURBVEFfQkVH VY1qOLsFJP2ORBZySU FXFSFFLIVzNP7SRUVK SE8PEKUHYRYXB92DOW MFHYZBW2FZQ1mQYIEG LIIHJiWKBdACBH1RIP KKGPJQYC4AQrOAUiov bGFpblxlcGljTmVzdE FqEoSumOmpvM75KCLa aGVfBAJ6OX4vWHMjuq kmOWNfQWCrLXH8HMfk wW45vOZiINCkPVUqrO DecJ3CHNJcRIY4SHbg zF55kMYdRF5MQMDyAL A6LSUoaMSgLLN3EJ2z fQ0KfQ== Major Classification (test NFMC/benign code = 9839) Diagnosis (test code = 34) l4kzlZDmWHAqzTB1JZ JwTEZev8vgr7OtdCZl cGFyXGpleHBhbmRcbm 13tGC0yR53YI1wCWYh BzU3TCKlhtO5Lpv1KK CrBXMikXGeF441n5uf u7nsmsMyrRX9MQJfQT RiK4OkEF6sULYqpQYl R82ghCGlHQF9TMPjJX AsxVEmTVYoHLN3ENKr jKVdD1lzODDiRN3fmw dyMTgwMFxtYXJndDE0 CXThsEAuD3WrOGZjVN xvPOEqncq1IuBkIw2j dGVyeTcyMFxwYXJkXH MlCTxjGXVjCqJqV9Gz CIVrLVj2neyqBPQqV1 b0JMXjmEJeJHyoRqKr CRFed93knO0ttGVua9 ifpjEuUBDpE1H8GORc lck8UWTdmQEpIXsfMw IwXGxpbjcyMFxjZjAg Xk2agDKmiFnrYO69YK LgnSjzMOfmSG11vMMn USCjbVEtAT3aNPLzdv XaICEfSX6vIMDtlAEg IEdNUyBzdGFpbiwgbm ByEZKxxbDqIb9vIUZ7 snfmtSHyp3NhbbUyjW FyIEdNUyBzdGFpbiwg oqNqEXGkxoPzYo5mDV PwYWDgf8M1o2Ygd2ae YXIgSXJvbiBzdGFpbi nsEIOnUK49yWDkcMfv bmVnYXRpdmVccGFyfQ == Comment (test code = 9835) y9whsKGqAEIynZY0BX CjPCVyi9dhf0MwePQr cGFyXGpleHBhbmRcbm 48kBA8dP49KH9gGTYn FqN5FGQqrqA6Ogg0MJ RtUSWgoHJxV650e2we i8bnoyHjsYO2nUqsVK MkipypUxQ2VDvpFVKl xtejGOu9YXylDTSsrW W1TGWgdEMjB4JoKTYn GY7jdpz0KJR6JWwwNT EtFoR8HGApxZWiFSRa mLcbPFwrm970XAL9Ni DtRGDhfcYhcJmvjO2u UjZbHDIUq587xi4kem ZyqdMhLFMsol1amcys dGUuIFxwYXJ9 Retained/Biomarker Testing n2cfvYSdJRGopMK9TO (test code = 9838) MmTIOip7xqv9JtyHZc cGFyXGpleHBhbmRcbm 46mGZ3oJ31XU9jDPFu NzF5QFEhxlW1Kxd5SZ PzSMRttHJxC812d9wa n5lytnZraHK7bNagEU YlouvjXmZ3CLpfWCRp dtceDZf2SZrpIPKelQ R6FDHnyCLvZ8GoPSSt FO3qode3DLP8OUhyAE YwCqS6WTQzaHLkZJPa rQzaOGxws195BYC6Jn DlMDBwvwBurSqrfZ8h ZnMyMCBTUjogMiBTLC AyIFNQIFxwYXJ9 Informational Points (test q2bdoKKtJAHrdVHoVz code = 9836) JvAMZkZSXxr5lzFMEv bGFuZzEwMzNcZnRuYm jsdUIbYTUmZgHwj6pm u003xOKre2zxOGTmAd M2jREbNQXgjBDjY931 NJSuSGafq3sus8ScAD HxdQYrc5Q7DMIQJJkj BFHPOOc9c4pbYuChRv B3eTVxJYgpR1vysgCk lAMpSZYcQNs2rJ40OJ NrjZ0cvGOiYQwemnQc VhQ1ACqxZWQoHiK7BP YfyTMwFYRuK1rkROEj XGdyZWVuMFxibHVlMC W1wOrmq9D5wLPzbTSf dHtcZjBcZnMyMiBOb3 HvCTf8oChxW8ZkNCKi WhA5eGRnTHRaXHsvVK AzISTxtoE8rT16UHbf bwL8hWJib4Syt01xi0 50zR6yuQSlSBC3GNHv PLBujYKjQMEqHCW6XX ImaGPjA2brCLAsAS3q cmdyMTgwMFxtYXJndD D5AVXcjKWvO3HwZJQg HTxbZWNorxh3JwQvGd 2uoJCwiUroWWihm2px o6tszSJvItv0UFVsRn AfEocyDSfme2Vie3bo FWKyed2hHBJ6qDOkeB npv5W3kZDeHLXhpNNk hoVoIMKxBpI9MUhvXM 3str88NNZoPAC6ga3h bGNccGdicmRyaGVhZF doE4PqLPRwi472SNDy C8SsYIOuj0E3zmXoLp AqKCVqxPS9prU6DGWl TNf4fUZjjoN0bvAmbX OtF8pthX7xHJIvWQ2m gmcvm7ffXJasCWbxSA NpkSO0pmV2ZYXilVIa T3CjpY3oBZHwMWojPF Xpupr4LtXhUc9qtGEh eTcyMFxzYmtwYWdlXH BnbmNvbnRccGduZGVj XHBsYWluXHBsYWluXG YwXGZzMjRccWxccGxh mZ0yXuVnQwRnBAmxZR 4wNUCgH5qjpXVtFBCf EIUsL5vnJsSbwG9wsY vgEAwvxyZ3YQjeN47z KBJ7JUA3aiJfSHKjlu VqZGFyJHByOD2saLBg CLUhQDBvRC2cAXQ2AE xvcGVkIGFuZCBwZXJm u5JoOK9oKSBptHEtPY Q4CYFms1ExK6FzFIH8 MIWlrV5oVKZymLPMSQ BNRCBBbmRlcnNvbiBQ KVEsc6ltL1dlMJ8mCA zmCx3pZHKrrorqBRGe aWNpbmUuIFRoZXNlIH Anw8DxYHqkoiZlqi18 HDCdUM6uo3AbZ1kpeX ZgzNm8SDBrYPKcOKNm i8PwSTVlwy41IXAiWl glwOmvKVBnPz9rAt8j TSAotwCwELR8MbNVFT 4odqmchFKhiEvkfy7d XHBsYWluXGYyXGZzMj JcbGFuZzEwMzNcaGlj aFxmMlxkYmNoXGYyXG ptG4cuOsTaYkStVypy YXJ9 [facility] Cancer [place]anaPneumocystis jiroveci Quant, BAL 2020-10-02 14:08:45 Test Item [...] ped and its performance characteristics determined by [employer]. It has not been cleared or approvedby the U.[place]. Food and D rug Administration. Results should be used inconju nction with clinical findin gs, and should not form the so lebasis for a diagnosis or tr eatment decision. Perfor med At:[employer] [address]Bezvgnssop Director: Carroll Bill Ph.D ., BCLRobert (ABB)[facility]#: [id number]: DARCI (test From [facility] and code = DARCI) [facility] Cancer HavanaPneumocystis jiroveci Quant, BAL 2020-10-02 14:08:45 Test Item [...] ped and its performance characteristics determined by [employer]. It has not been cleared or approvedby the U.S. Food and D rug Administration. Results should be used inconju nction with clinical findin gs, and should not form the so lebasis for a diagnosis or tr eatment decision. Perfor med At:[employer] [address] [employer] [address] [address]Mxtisovoyg Director: Carroll Bill Ph.D ., BCLRobert (ABB)CLIA#: [id number]: DARCI (test From [facility] and code = DARCI) [facility] Dann, BAL 2020-10-02 14:08:45 Test Item Value Reference Interpretation Comments Range P. jiroveci Not Detected Not Detected Assay Range: 8 4 copies/mL to BAL-Virac[employer] copies/mL 1.00E+08 copies /mLThe limit of (test code = quantitation (L OQ) is 84 6592) copies/mL. Pneumocystisjir oveci DNA detected below the LOQ will be reported as Detected:<84cop ies/mL.This test was devvitao ped and its performance characteristics determined by [employer]. It has not been cleared or approvedby the U.S. Food and D rug Administration. Results should be used inconju nction with clinical findin gs, and should not form the so lebasis for a diagnosis or tr eatment decision. Perfor med At:[employer] [address] [employer] [address] [place] [address]Jgchufcklm Director: Carroll Bill Ph.D ., BCLRobert (ABB)CLIA#: [id number]: DARCI (test From [facility] and code = DARCI) [facility] [id number] 22:30:33 Test Item Value Reference Range Interpretation Comments T4 Free (test code = 7505) 1.11 ng/dL 0.93-1.70 [facility] [id number] 22:30:33 Test Item Value Reference Range Interpretation Comments T4 Free (test code = 7502) 1.11 ng/dL 0.93-1.70 [facility] [id number] 22:30:33 Test Item Value Reference Range Interpretation Comments T4 Free (test code = 7502) 1.11 ng/dL 0.93-1.70 [facility] 22:30:26 Test Item Value Reference Range Interpretation Comments TSH (test code = 1.11 See_Comment [Automated message] The 7510) system which ge nerated this result transmit jigar reference range : 0.27 - 4.20 mcunit/mL. The reference range was not used to interpr et this result as sonido l/abnormal. [facility] 22:30:26 Test Item Value Reference Range Interpretation Comments TSH (test code = 1.11 See_Comment [Automated message] The 7523) system which ge nerated this result transmit jigar reference range : 0.27 - 4.20 mcunit/mL. The reference range was not used to interpr et this result as sonido l/abnormal. [facility] 22:30:26 Test Item Value Reference Range Interpretation Comments TSH (test code = 1.11 See_Comment [Automated message] The 7549) system which ge nerated this result transmit jigar reference range : 0.27 - 4.20 mcunit/mL. The reference range was not used to interpr et this result as sonido l/abnormal. [facility]VBG[facility] 05:53:04 Test Item Value Reference Range Interpretation [...] (test code = 20 mmol/L 21-28 L 36073-7) Base Excess Dom (test -6 mmol/L -2-3 L code = 1927-3) O2 Sat Dom (test code = 67 % 6513) Lab Interpretation (test Abnormal code = 49622-5) [facility] 05:53:04 Test Item Value Reference Range Interpretation Comments pH Dom (test code = 7.27 7.32-7.43 L Results are 2746-6) corrected for a body temp of 37C pCO2 Dom (test code = 43.9 See_Comment [Auto mated message] 2020-06) The system [employer] generated this result transmit jigar reference range : 41.0 - 51.0 mmH g. The reference r louis was not used to interpret this result as normal/abnormal . pO2 Dom (test code = 44 mmHg 2705-2) HCO3 Dom (test code = 20 mmol/L 21-28 L 09928-1) Base Excess Dom (test -6 mmol/L -2-3 L code = 1927-3) O2 Sat Dom (test code = 67 % 6513) Lab Interpretation (test Abnormal code = 91102-4) [facility] 05:53:04 Test Item Value Reference Range Interpretation Comments pH Dom (test code = 7.27 7.32-7.43 L Results are 2746-6) corrected for a body temp of 37C pCO2 Dom (test code = 43.9 See_Comment [Auto mated message] 2020-06) The system [employer] generated this result transmit jigar reference range : 41.0 - 51.0 mmH g. The reference r louis was not used to interpret this result as normal/abnormal . pO2 Dom (test code = 44 mmHg 2705-2) HCO3 Dom (test code = 20 mmol/L 21-28 L 22441-6) Base Excess Dom (test -6 mmol/L -2-3 L code = 1927-3) O2 Sat Dom (test code = 67 % 6513) Lab Interpretation (test Abnormal code = 34472-2) [facility] HospitalPrepare fresh frozen plasma:Transfusion Date: 09/30/2020; Transfusion Indications: Prothrombin time gre ater than 18 seconds; G701, 2 [id number] 21:03:55 Test Item Value Reference Range Interpretation Comments FFP Product Ready 2 Fresh Froz en Plasma (test code = 21633-0) Availa ble - Order Form 03 when re will for product iss ue. Unit Number (test [id number] code = 7002) Product Code (test Y8130M65 code = 7003) Unit Expiration (test [id number] code = 067916) Unit Blood Type (test 6200 code = 7004) Product Code Text PLASMA IR CPD (test code = 017248) Unit Irradiated (test IRRADIATED code = 835548) Dispense Status (test ISSUED code = 7001) Unit Blood Type (test A Positive code = 7005) Product Pool Table Mechanic .BPAM Location (test code = 769313) [facility] Hospital[facility] fresh frozen plasma:Transfusion Date: 09/30/2020; Transfusion Indications: Prothrombin time gre ater than 18 seconds; G701, 2 [id number] 21:03:55 Test Item Value Reference Range Interpretation Comments FFP Product Ready 2 Fresh Froz en Plasma (test code = 11489-0) Availa ble - Order Form 03 when re will for product iss ue. Unit Number (test [id number] code = 7002) Product Code (test A1294A48 code = 7003) Unit Expiration (test [id number] code = 403051) Unit Blood Type (test 6200 code = 7004) Product Code Text PLASMA IR CPD (test code = 276117) Unit Irradiated (test IRRADIATED code = 122342) Dispense Status (test ISSUED code = 7001) Unit Blood Type (test A Positive code = 7005) Product Pool Table Mechanic .BPAM Location (test code = 914486) [facility] fresh frozen plasma:Transfusion Date: 09/30/2020; Transfusion Indications: Prothrombin time gre ater than 18 seconds; G701, 2 [id number] 21:03:55 Test Item Value Reference Range Interpretation Comments FFP Product Ready 2 Fresh Froz en Plasma (test code = 81819-6) Availa ble - Order Form 03 when re will for product iss ue. Unit Number (test [id number] code = 7002) Product Code (test W8112Y04 code = 7003) Unit Expiration (test [id number] code = 458169) Unit Blood Type (test 6200 code = 7004) Product Code Text PLASMA IR CPD (test code = 700125) Unit Irradiated (test IRRADIATED code = 577175) Dispense Status (test ISSUED code = 7001) Unit Blood Type (test A Positive code = 7005) Product Pool Table Mechanic .BPAM Location (test code = 970247) [facility] HospitalFFP Product Ready for Pool Table Mechanic 2020-09-30 16:12:10 Test Item Value Reference Range Interpretation Comments FFP Product Ready B2 Blood Bank Product i s ready for for Pool Table Mechanic (test seed cone picker on September 30, code = 188661) 2020 11:12:03 CDT. [facility] HospitalFFP Product Ready for Pool Table Mechanic 2020-09-30 16:12:10 Test Item Value Reference Range Interpretation Comments FFP Product Ready B2 Blood Bank Product i s ready for for Pool Table Mechanic (test seed cone picker on September 30, code = 346321) 2020 11:12:03 CDT. [facility] HospitalFF[facility] Product Ready for Pool Table Mechanic 2020-09-30 16:12:10 Test Item Value Reference Range Interpretation Comments FFP Product Ready B2 Blood Bank Product i s ready for for Pool Table Mechanic (test seed cone picker on September 30, code = 012494) 2020 11:12:03 CDT. [facility] Hospital[facility] [id number] 09:19:04 Test Item Value Reference Range Interpretation Comments CK (test code = 5206) 138 U/L 39-308 CK MB (test code = <2.0 See_Comment [Automat ed message] 3085) The system [employer] generated this result transmitted ref erence range: [...] res ults. [Automated mess age] The system [employer] generated this result transmitted ref erence range: <=18. Th e reference range was not used to int erpret this result as normal/abnormal . Lab Interpretation Abnormal (test code = 04308-8) [facility] [place] [id number] 09:19:04 Test Item Value Reference Range Interpretation Comments CK (test code = 5206) 138 U/L 39-308 CK MB (test code = <2.0 See_Comment [Automat ed message] 5209) The system [employer] generated this result transmitted ref erence range: [...] res ults. [Automated mess age] The system [employer] generated this result transmitted ref erence range: <=18. Th e reference range was not used to int erpret this result as normal/abnormal . Lab Interpretation Abnormal (test code = 70630-3) [facility] [id number] 09:19:04 Test Item Value Reference Range Interpretation Comments CK (test code = 5206) 138 U/L 39-308 CK MB (test code = <2.0 See_Comment [Automat ed message] 5209) The system [employer] generated this result transmitted ref erence range: [...] res ults. [Automated mess age] The system [employer] generated this result transmitted ref erence range: <=18. Th e reference range was not used to int erpret this result as normal/abnormal . Lab Interpretation Abnormal (test code = 78506-7) [facility] HospitalDifferent[facility] [id number] 20:04:48 Test Item Value Reference Range Interpretation Comments Diff Cancelled (test See Note Due to low WBC, the code = 8954) differential wi ll not be performed and i t is not possible to michael culate ANC. [facility] HospitalDifferent[facility] [id number] 20:04:48 Test Item Value Reference Range Interpretation Comments Diff Cancelled (test See Note Due to low WBC, the code = 8954) differential wi ll not be performed and i t is not possible to michael culate ANC. [facility] HospitalDifferent[facility] [id number] 20:04:48 Test Item Value Reference Range Interpretation Comments Diff Cancelled (test See Note Due to low WBC, the code = 8954) differential wi ll not be performed and i t is not possible to michael culate ANC. [facility] HospitalRes[facility] Viral Panel + COVID-19, Nasopharyngeal [id number] 14:00:06 Test Item Value Reference Range Interpretation [...] Not Detected Not Detected (test code = 95248-9) Human Metapneumovirus Not Detected Not Detected (test [...] Detected Not Detected Parapertussis (test code = 27307) Bordetella pertussis Not Detected Not Detected (test [...] including SARS-CoV-2, from a single nasopharyngeal swab (SEPARATIONS SCIENTIST) specimen. Specifically, the SARS-CoV-2 primers contained in [...] and high-complexity tests. [facility], CLIA Accreditation #[id number] and CAP Accreditation #[id number], verified the performance characteristics of this assay. [facility] performs the assay using the [employer] System. Internal controls are used to monitor all stages of the test process. [facility] + COVID-19, Nasopharyngeal [id number] 14:00:06 Test Item Value Reference Range Interpretation Comments Adenovirus (test code = Not Detected Not Detected 4742) Coronavirus 229E (test Not Detected Not Detected code = 5349) Coronavirus HKU1 (test Not Detected Not Detected code = 5350) Coronavirus NL63 (test Not Detected Not Detected code = 5351) Coronavirus OC43 (test Not Detected Not Detected code = 5352) COVID19 (SARS-CoV-2) Not Detected Not Detected (test code = 19550-1) Human Metapneumovirus Not Detected Not Detected (test [...] Detected Not Detected Parapertussis (test code = 60322) Bordetella pertussis Not Detected Not Detected (test [...] including SARS-CoV-2, from a single nasopharyngeal swab (SEPARATIONS SCIENTIST) specimen. Specifically, the SARS-CoV-2 primers contained in [...] and high-complexity tests. [facility], CLIA Accreditation #[id number] and CAP Accreditation #[id number], verified the performance characteristics of this assay. [facility] performs the assay using the [employer] System. Internal controls are used to monitor all stages of the test process. [facility] Hospital[facility] + COVID-19, Nasopharyngeal [id number] 14:00:06 Test Item Value Reference Range Interpretation Comments Adenovirus (test code = Not Detected Not Detected 6085) Coronavirus 229E (test Not Detected Not Detected code = 5349) Coronavirus HKU1 (test Not Detected Not Detected code = 5350) Coronavirus NL63 (test Not Detected Not Detected code = 5351) Coronavirus OC43 (test Not Detected Not Detected code = 5352) COVID19 (SARS-CoV-2) Not Detected Not Detected (test code = 57065-7) Human Metapneumovirus Not Detected Not Detected (test [...] Detected Not Detected Parapertussis (test code = 54555) Bordetella pertussis Not Detected Not Detected (test [...] including SARS-CoV-2, from a single nasopharyngeal swab (SEPARATIONS SCIENTIST) specimen. Specifically, the SARS-CoV-2 primers contained in [...] and high-complexity tests. The [facility], CLIA Accreditation #[id number] and CAP Accreditation #[id number], verified the performance characteristics of this assay. [facility] performs the assay using the [employer] System. Internal controls are used to monitor all stages of the test process. [facility] [place]OD [id number] 13:00:00 Test Item Value Reference Range Interpretation Comments CULTURE (BEAKER) (test No growth in 5 days code = 1095) BLOOD [id number] 13:00:00 Test Item Value Reference Range Interpretation Comments CULTURE (BEAKER) (test No growth in 5 days code = 1095) CT, BRAIN, WITHOUT [id number] 12:22:00Unlisted Reason for Exam - Click Yes and Enter Reason Below->No [facility] : 1950 Sex: [...] MDReport Verified Date/Time: 09/11/2020 12:22:16 Reading Location: [facility] C013 Neuro Reading Room URINALYSIS W/ [id number] 11:21:00 Test Item Value Reference Range Interpretation [...] 1663) SOURCE(BEAKER) (test code = 2795) TROPONIN [id number] 11:12:00 Test Item Value Reference Range Interpretation [...] failure, acidosis, acute neurological disease, and persistent tachyarrhythmia.Helicopter Engineer ID - [id number] ACID, VENOUS 2020-09-11 10:57:00 Test Item Value Reference Range Interpretation Comments LACTATE BLOOD 1.55 mmol/L See_Comment [Automated me ssage] VENOUS (2) (BEAKER) The syst em which (test code = 2870) generated this result transmitted ref erence range: 0.50-<2. 00. The reference range was not used to interpr et this result as normal/abnormal . Helicopter Engineer ID - [id number] ID - [id number] ID - [id number] ID - [id number] CBC W/PLT COUNT & AUTO [id number] 10:43:00 Test Item Value Reference Range Interpretation [...] (BEAKER) (test code = 2801) COMPREHENSIVE METABOLIC [id number] 10:43:00 Test Item Value Reference Range Interpretation [...] S NOT APPLICABLE FOR DIALYSIS PATIEN TS. Helicopter Engineer ID - [id number] ID - [id number] ID - [id number] ID - [id number] ID - [id number] ID - [id number] ID - [id number] ID - [id number] ID - [id number] ID - [id number] ID - [id number] ID - [id number] ID - [id number] ID - [id number] ID - [id number] ID - [id number] ID - [id number] ID - [id number] ID - [id number] KINASE (CK)2020-09-11 10:38:00 Test Item Value Reference Range Interpretation Comments CREATINE KINASE TOTAL (BEAKER) (test 266 U/L 40-250 H code = 380) Helicopter Engineer ID - [id number] TIME/[id number] 10:34:00 Test Item Value Reference Range Interpretation Comments PROTIME (BEAKER) 10.9 seconds 9.3-12.0 Final Infor mation (test code = 759) (Auto Outp ut) INR (BEAKER) (test 0.98 See_Comment Final Inf ormation code = 370) (Auto Output) [Automated mess age] The system [employer] generated this result transmitted ref erence range: <=5.90. The reference range was not used to int erpret this result as normal/abnormal . RECOMMENDED COUMADIN/WARFARIN INR THERAPY RANGESSTANDARD DOSE: 2.0 - 3.0 Includes: PROPHYLAXIS for venous thrombosis, systemic embolization; TREATMENT for venous thrombosis and/or pulmonary embolus.HIGH RISK: Target INR is 2.5-3.5 for patients with mechanical heart valves.[id number] 10:34:00 Test Item Value Reference Range Interpretation Comments PARTIAL THROMBOPLASTIN 22.8 seconds 23.0-35.0 L Final Information TIME (BEAKER) (test (Auto Ou tput) code = 760) POCT-GLUCOSE [id number] 10:29:00 Test Item Value Reference Range Interpretation Comments POC-GLUCOSE METER 106 mg/dL 70-110 : TESTED A T SLSL 1317 (BEAKER) (test code [address], = 1538) [facility] 77 478: Helicopter Engineer/Techni mae ID = [id number] for Irene Dorman, CHEST, 1 VIEW, NON [id number] 10:16:00Reason for exam:- >HYPOTENSIONReason for exam:->coughShould this be performed at the bedside?->YesS[facility] : 1950 Sex: MFINAL REPORT INDICATION: HYPOTENSIONcough COMPARISON: None TECHNIQUE: Single frontal view of the chest. FINDINGS: Lungs and pleura: Mild bibasilar atelectasis No effusion.Heart and mediastinum: Normal heart size. Unremarkable mediastinal contours.Osseous structures: No acute abnormality.Other: None. IMPRESSION: No acute intrathoracic abnormality. Signed: Jayne Maloney Verified Date/Time: 09/11/2020 10:16:33 Reading Location: [facility] Radiology Reading Room RAPID DRUG SCREEN, [id number] 19:07:00 Test Item Value Reference Range Interpretation [...] situations. Chain of custody not maintained. Some ahcc-omw-iccymhy medications, as well as adulterants, may cause inaccurate results. Clinical correlation should be applied. A more comprehensive drug screen or confirmation of a detected drug may be performed upon request.Helicopter Engineer ID - [id number] ID - [id number] ID - [id number] ID - [id number] ID - [id number] ID - [id number] ID - [id number] ID - [id number] URINALYSIS W/ [id number] 16:12:00 Test Item Value Reference Range Interpretation [...] 1663) SOURCE(BEAKER) (test code = 2795) TROPONIN [id number] 15:12:00 Test Item Value Reference Range Interpretation [...] failure, acidosis, acute neurological disease, and persistent tachyarrhythmia.Helicopter Engineer ID - [id number] 15:10:00 Test Item Value Reference Range Interpretation Comments ACETAMINOPHEN LEVEL (BEAKER) (test < ug/mL 10.0-30.0 L code = 344) Helicopter Engineer ID - [id number] ID - [id number] ID - [id number] ID - [id number] 15:10:00 Test Item Value Reference Range Interpretation Comments SALICYLATE LEVEL (BEAKER) (test 0.9 mg/dL 20.0-30.0 L code = 764) Helicopter Engineer ID - [id number] 15:06:00 Test Item Value Reference Range Interpretation Comments ETHANOL (BEAKER) < mg/dL See_Comment [Automated message] The (test code = 400) system [facility] generated this result tra nsmitted reference range : <=10. The reference r louis was not used to int erpret this result as normal/abnormal . Helicopter Engineer ID - [id number] 15:05:00 Test Item Value Reference Range Interpretation Comments MAGNESIUM (BEAKER) (test code = 2.3 mg/dL 1.5-3.0 627) Helicopter Engineer ID - [id number] ID - [id number] ID - [id number] ID - [id number] METABOLIC [id number] 15:05:00 Test Item Value Reference Range Interpretation [...] S NOT APPLICABLE FOR DIALYSIS PATIEN TS. Helicopter Engineer ID - [id number] ID - [id number] ID - [id number] ID - [id number] ID - [id number] ID - [id number] ID - [id number] ID - [id number] ID - [id number] ID - [id number] ID - [id number] ID - [id number] ID - [id number] ID - [id number] ID - [id number] ID - [id number] 15:02:00 Test Item Value Reference Range Interpretation Comments PHOSPHORUS (BEAKER) (test code = 4.0 mg/dL 2.5-4.5 604) Helicopter Engineer ID - [id number] W/PLT COUNT & AUTO [id number] 14:46:00 Test Item Value Reference Range Interpretation [...] Not Detected Not Detected (test code = 60156-0) DARCI (test code = DARCI) ID NOW COVID-19 Assay is an isothermal nucleic acid amplification test intended for the qualitative detection of nucleic acid from SARS-CoV-2 viral RNA in nasopharyngeal (HEALTH SAFETY INSTRUCTOR) specimens. It is used under Emergency Use [...] indicated. Lab Interpretation Normal (test code = 09600-9) [facility] [id number] 09:31:00 Test Item Value Reference Range Interpretation Comments eGFR (test code = eGFR) 69 [facility] [id number] 09:31:00 Test Item Value Reference Range Interpretation Comments Glucose Lvl (test code = Glucose Lvl) 104 70-99 [facility] [id number] 09:31:00 Test Item Value Reference Range Interpretation Comments Potassium Lvl (test code = Potassium 4.0 3.5-5.1 Lvl) [facility] [id number] 09:31:00 Test Item Value Reference Range Interpretation Comments Sodium Lvl (test code = Sodium Lvl) 140 135-145 [facility]2017-04-06 09:31:00 Test Item Value Reference Range Interpretation Comments Creatinine Lvl (test code = Creatinine 1.10 0.50-1.40 Lvl) [facility]2017-04-06 09:31:00 Test Item Value Reference Range Interpretation Comments BUN (test code = BUN) 10-15 [facility]2017-04-06 09:31:00 Test Item Value Reference Range Interpretation Comments AGAP (test code = AGAP) 13.0 10.0-20.0 [facility]2017-04-06 09:31:00 Test Item Value Reference Range Interpretation Comments CO2 (test code = CO2) [facility]2017-04-06 09:31:00 Test Item Value Reference Range Interpretation Comments Calcium Lvl (test code = Calcium Lvl) 8.2 8.5-10.5 [facility]2017-04-06 09:31:00 Test Item Value Reference Range Interpretation Comments Chloride Lvl (test code = Chloride Lvl) 104 95-109 [facility]2017-04-06 09:31:00 Test Item Value Reference Range Interpretation Comments eGFR (test code = eGFR) 69 [facility]2017-04-06 09:31:00 Test Item Value Reference Range Interpretation Comments Glucose Lvl (test code = Glucose Lvl) 104 70-99 [facility]2017-04-06 09:31:00 Test Item Value Reference Range Interpretation Comments Potassium Lvl (test code = Potassium 4.0 3.5-5.1 Lvl) [facility]2017-04-06 09:31:00 Test Item Value Reference Range Interpretation Comments Sodium Lvl (test code = Sodium Lvl) 140 135-145 [facility]2017-04-06 09:31:00 Test Item Value Reference Range Interpretation Comments Creatinine Lvl (test code = Creatinine 1.10 0.50-1.40 Lvl) [facility]2017-04-06 09:31:00 Test Item Value Reference Range Interpretation Comments BUN (test code = BUN) 10-15 [facility]2017-04-06 09:31:00 Test Item Value Reference Range Interpretation Comments AGAP (test code = AGAP) 13.0 10.0-20.0 [facility]2017-04-06 09:31:00 Test Item Value Reference Range Interpretation Comments CO2 (test code = CO2) [facility]2017-04-06 09:31:00 Test Item Value Reference Range Interpretation Comments Calcium Lvl (test code = Calcium Lvl) 8.2 8.5-10.5 [facility]2017-04-06 09:31:00 Test Item Value Reference Range Interpretation Comments Chloride Lvl (test code = Chloride Lvl) 104 95-109 [facility]2017-04-06 09:31:00 Test Item Value Reference Range Interpretation Comments eGFR (test code = eGFR) 69 [facility]2017-04-06 09:31:00 Test Item Value Reference Range Interpretation Comments Glucose Lvl (test code = Glucose Lvl) 104 70-99 [facility]2017-04-06 09:31:00 Test Item Value Reference Range Interpretation Comments Potassium Lvl (test code = Potassium 4.0 3.5-5.1 Lvl) [facility]2017-04-06 09:31:00 Test Item Value Reference Range Interpretation Comments Sodium Lvl (test code = Sodium Lvl) 140 135-145 [facility]2017-04-06 09:31:00 Test Item Value Reference Range Interpretation Comments Creatinine Lvl (test code = Creatinine 1.10 0.50-1.40 Lvl) [facility]2017-04-06 09:31:00 Test Item Value Reference Range Interpretation Comments BUN (test code = BUN) 21 7-22 [facility]2017-04-06 09:31:00 Test Item Value Reference Range Interpretation Comments AGAP (test code = AGAP) 13.0 10.0-20.0 [facility]2017-04-06 09:31:00 Test Item Value Reference Range Interpretation Comments CO2 (test code = CO2) - [facility]2017-04-06 09:31:00 Test Item Value Reference Range Interpretation Comments Calcium Lvl (test code = Calcium Lvl) 8.2 8.5-10.5 [facility]2017-04-06 09:31:00 Test Item Value Reference Range Interpretation Comments Chloride Lvl (test code = Chloride Lvl) 104 95-109 [facility] [id number] 10:06:00 Test Item Value Reference Range Interpretation Comments Magnesium Lvl (test code = Magnesium 2.6 1.8-2.4 Lvl) [facility]VrcztpbTOMNHFKSETNM2332-97-63 10:06:00 Test Item Value Reference Range Interpretation Comments AGAP (test code = AGAP) 15.4 10.0-20.0 [facility] HospitalZonkrhaPSWRPBBJNODO6394-34-34 10:06:00 Test Item Value Reference Range Interpretation Comments eGFR (test code = eGFR) 69 [facility] HospitalNjifgqiOLMBJFVIJCFD8033-94-74 10:06:00 Test Item Value Reference Range Interpretation Comments Glucose Lvl (test code = Glucose Lvl) 110 70-99 [facility] HospitalRjnpcbzCSBPWYLUHFWV8658-54-31 10:06:00 Test Item Value Reference Range Interpretation Comments BUN (test code = BUN) 26 7-22 [facility] HospitalPnleytqJQARQTUSLATW3786-90-48 10:06:00 Test Item Value Reference Range Interpretation Comments Chloride Lvl (test code = Chloride Lvl) 105 95-109 [facility] HospitalJfozwvkAOYDWZNMZDEL8415-41-54 10:06:00 Test Item Value Reference Range Interpretation Comments Creatinine Lvl (test code = Creatinine 1.10 0.50-1.40 Lvl) [facility] HospitalHpgateaNEFCYJWDKVMB3143-47-82 10:06:00 Test Item Value Reference Range Interpretation Comments Sodium Lvl (test code = Sodium Lvl) 137 135-145 [facility] HospitalHzhmlsqNSBSUNUEXSFR0831-83-00 10:06:00 Test Item Value Reference Range Interpretation Comments Potassium Lvl (test code = Potassium 4.4 3.5-5.1 Lvl) [facility] HospitalPhdjdwzXYYFZNKLOIQH1133-95-49 10:06:00 Test Item Value Reference Range Interpretation Comments CO2 (test code = CO2) 21 24-32 [facility] HospitalLptvvliQLIGJRDCLMOZ4749-69-27 10:06:00 Test Item Value Reference Range Interpretation Comments Calcium Lvl (test code = Calcium Lvl) 8.1 8.5-10.5 [facility]JkihwunDQBLAUQWCW8522-09-41 10:06:00 Test Item Value Reference Range Interpretation Comments Basophils (test code = 0.3 See_Comment [Aut omated message] The Basophils) system which ge nerated this result tra nsmitted reference range : <=1.0. The reference r louis was not used to int erpret this result as normal/abnormal . [facility]lakeKvamiywDKSFIRBYME1745-74-83 10:06:00 Test Item Value Reference Range Interpretation Comments Segs-Bands # (test code = Segs-Bands #) 9.5 1.5-8.1 [facility]lakeTqyxjkoPCHODSHGPM9306-76-42 10:06:00 Test Item Value Reference Range Interpretation Comments Lymphocytes # (test code = Lymphocytes 1.2 1.0-5.5 #) [facility]lakeSvpyyrdUOQFLBEDSX7726-27-92 10:06:00 Test Item Value Reference Range Interpretation Comments Monocytes # (test code 1.4 See_Comment [Aut omated message] The = Monocytes #) system which generated this result tra nsmitted reference range : <=0.8. The reference r louis was not used to int erpret this result as normal/abnormal . [facility]lakeIkwijscLORSYLULJZ9198-81-17 10:06:00 Test Item Value Reference Range Interpretation Comments Basophils # (test code 0.0 See_Comment [Aut omated message] The = Basophils #) system which generated this result tra nsmitted reference range : <=0.2. The reference r louis was not used to int erpret this result as normal/abnormal . [facility]lakeIdklacfXABJKWQOKG0766-10-76 10:06:00 Test Item Value Reference Range Interpretation Comments Eosinophils # (test code 0.2 See_Comment [A utomated message] The = Eosinophils #) system whic h generated this result tra nsmitted reference range : <=0.5. The reference r louis was not used to int erpret this result as normal/abnormal . [facility]lakeLamerroCPBHGTRDSN4858-92-03 10:06:00 Test Item Value Reference Range Interpretation Comments Polychrom (test code = Moderate *ABN*(06/29/16 Polychrom) 5:06 AM) [facility]lakeGzvknyjXVGPNATBLF1262-93-14 10:06:00 Test Item Value Reference Range Interpretation Comments Plt Morph (test code = Normal (06/29/16 5:06 AM) Plt Morph) [facility]lakeUtougdcMCKWYJPZSV1309-67-83 10:06:00 Test Item Value Reference Range Interpretation Comments Lymphocytes (test code = Lymphocytes) 9.7 20.0-40.0 [facility]lakeNpwfdquVAGHATOIVX3872-50-42 10:06:00 Test Item Value Reference Range Interpretation Comments Segs (test code = Segs) 77.0 45.0-75.0 [facility]lakeMybaozdWKOZEQNZLM1505-75-92 10:06:00 Test Item Value Reference Range Interpretation Comments Eosinophils (test code = 1.6 See_Comment [A utomated message] The Eosinophils) system which ge nerated this result tra nsmitted reference range : <=4.0. The reference r louis was not used to int erpret this result as normal/abnormal . [facility]lakeTpvmhglDDQDEEIMHF4667-03-13 10:06:00 Test Item Value Reference Range Interpretation Comments Monocytes (test code = Monocytes) 11.4 2.0-12.0 [facility]lakeHpaknkjBUXCDXMYLH5109-00-81 10:06:00 Test Item Value Reference Range Interpretation Comments MCH (test code = MCH) 28.6 pg 27.0-31.0 [facility]lakeTvhkisgDWJJKSHZHE3526-93-75 10:06:00 Test Item Value Reference Range Interpretation Comments Platelet (test code = Platelet) 163 133-450 [facility]lakeAtrwttfBCRBYZLFCW4238-08-24 10:06:00 Test Item Value Reference Range Interpretation Comments RDW (test code = RDW) 14.2 11.5-14.5 [facility]lakeAtbuzdvVNGFBBRWNX9186-19-11 10:06:00 Test Item Value Reference Range Interpretation Comments MCHC (test code = MCHC) 33.9 32.0-36.0 [facility]lakeJmuvcasPSNOEUUAOY2469-38-07 10:06:00 Test Item Value Reference Range Interpretation Comments MPV (test code = MPV) 8.3 7.4-10.4 [facility]lakeAvczzzwWEICCYNAFN5397-90-21 10:06:00 Test Item Value Reference Range Interpretation Comments RBC (test code = RBC) 3.11 4.70-6.10 [facility]lakeApwenrzVWPJGWIBFH0506-59-12 10:06:00 Test Item Value Reference Range Interpretation Comments WBC (test code = WBC) 12.3 3.7-10.4 [facility]lakeFhrhavuPZGKXRMTNL8647-87-62 10:06:00 Test Item Value Reference Range Interpretation Comments MCV (test code = MCV) 84.3 80.0-94.0 [facility]lakeRbchsuuRUIMZZTDSZ5896-34-31 10:06:00 Test Item Value Reference Range Interpretation Comments Hct (test code = Hct) 26.2 42.0-54.0 [facility]lakeMlzabqdSLXAZWMGNS6564-03-05 10:06:00 Test Item Value Reference Range Interpretation Comments Hgb (test code = Hgb) 8.9 14.0-18.0 [facility] EOCBW8828-99-40 10:06:00 Test Item Value Reference Range Interpretation Comments Magnesium Lvl (test code = Magnesium 2.6 1.8-2.4 Lvl) [facility] HospitalQtewimiXYSUDKWGUGSB5999-36-88 10:06:00 Test Item Value Reference Range Interpretation Comments AGAP (test code = AGAP) 15.4 10.0-20.0 [facility] HospitalWulynulVTXCPWVJFYFQ2145-98-31 10:06:00 Test Item Value Reference Range Interpretation Comments eGFR (test code = eGFR) 69 [facility] HospitalAagifarHKYJULMVQYLA9788-33-50 10:06:00 Test Item Value Reference Range Interpretation Comments Glucose Lvl (test code = Glucose Lvl) 110 70-99 [facility] HospitalMvlrlycSYVQRECUMCIY3883-52-55 10:06:00 Test Item Value Reference Range Interpretation Comments BUN (test code = BUN) 26 7-22 [facility] HospitalOnqxwizGWLGSTSXFXER3148-07-62 10:06:00 Test Item Value Reference Range Interpretation Comments Chloride Lvl (test code = Chloride Lvl) 105 95-109 [facility] HospitalHecbglqQTBQVMJJVUQL8819-46-41 10:06:00 Test Item Value Reference Range Interpretation Comments Creatinine Lvl (test code = Creatinine 1.10 0.50-1.40 Lvl) [facility] HospitalRxgqubzRFJHAAZBTSCU2323-03-79 10:06:00 Test Item Value Reference Range Interpretation Comments Sodium Lvl (test code = Sodium Lvl) 137 135-145 [facility] HospitalYrqlqaaWIVNKBWHWLLZ9088-18-29 10:06:00 Test Item Value Reference Range Interpretation Comments Potassium Lvl (test code = Potassium 4.4 3.5-5.1 Lvl) [facility] HospitalRublamnWIHWCABXEVER6494-44-69 10:06:00 Test Item Value Reference Range Interpretation Comments CO2 (test code = CO2) 21 24-32 [facility] HospitalFpwvynmXPWCVYVHBHVT9818-41-25 10:06:00 Test Item Value Reference Range Interpretation Comments Calcium Lvl (test code = Calcium Lvl) 8.1 8.5-10.5 [facility]lakeSnqczuuXRKZKSVWII2674-71-61 10:06:00 Test Item Value Reference Range Interpretation Comments Basophils (test code = 0.3 See_Comment [Aut omated message] The Basophils) system which ge nerated this result tra nsmitted reference range : <=1.0. The reference r louis was not used to int erpret this result as normal/abnormal . [facility]lakeWwbqlruNVCERLGZND4485-70-57 10:06:00 Test Item Value Reference Range Interpretation Comments Segs-Bands # (test code = Segs-Bands #) 9.5 1.5-8.1 [facility]lakeSpkeuelWRNAMFYGLB4009-60-83 10:06:00 Test Item Value Reference Range Interpretation Comments Lymphocytes # (test code = Lymphocytes 1.2 1.0-5.5 #) [facility]lakeDxbbbcdNQUJSSDNRO5152-31-60 10:06:00 Test Item Value Reference Range Interpretation Comments Monocytes # (test code 1.4 See_Comment [Aut omated message] The = Monocytes #) system which generated this result tra nsmitted reference range : <=0.8. The reference r louis was not used to int erpret this result as normal/abnormal . [facility]lakeBgdwimhPXTVBDOFTZ3161-08-30 10:06:00 Test Item Value Reference Range Interpretation Comments Basophils # (test code 0.0 See_Comment [Aut omated message] The = Basophils #) system which generated this result tra nsmitted reference range : <=0.2. The reference r louis was not used to int erpret this result as normal/abnormal . [facility]lakeYfnnrhjEGBCCOPVZG1053-39-08 10:06:00 Test Item Value Reference Range Interpretation Comments Eosinophils # (test code 0.2 See_Comment [A utomated message] The = Eosinophils #) system whic h generated this result tra nsmitted reference range : <=0.5. The reference r louis was not used to int erpret this result as normal/abnormal . [facility]lakeNlbifhgECIQLXDLWG7819-29-09 10:06:00 Test Item Value Reference Range Interpretation Comments Polychrom (test code = Moderate *ABN*(06/29/16 Polychrom) 5:06 AM) [facility] SouthlakeZpgsktbUFBPVALCCC8779-72-28 10:06:00 Test Item Value Reference Range Interpretation Comments Plt Morph (test code = Normal (06/29/16 5:06 AM) Plt Morph) [facility]lakeDxooedaPBYUIOIDIJ3666-19-58 10:06:00 Test Item Value Reference Range Interpretation Comments Lymphocytes (test code = Lymphocytes) 9.7 20.0-40.0 [facility]lakeKfrdzozAUSMSMLLXB7496-13-33 10:06:00 Test Item Value Reference Range Interpretation Comments Segs (test code = Segs) 77.0 45.0-75.0 [facility]lakePcynqfwAJERULOWZJ4109-99-18 10:06:00 Test Item Value Reference Range Interpretation Comments Eosinophils (test code = 1.6 See_Comment [A utomated message] The Eosinophils) system which ge nerated this result tra nsmitted reference range : <=4.0. The reference r louis was not used to int erpret this result as normal/abnormal . [facility]lakeJcdwyanJLMCHCWQMC5590-53-98 10:06:00 Test Item Value Reference Range Interpretation Comments Monocytes (test code = Monocytes) 11.4 2.0-12.0 [facility] SouthlakeXncbbqhZXTNJVKQNM4205-65-86 10:06:00 Test Item Value Reference Range Interpretation Comments MCH (test code = MCH) 28.6 pg 27.0-31.0 [facility]lakeJunvxcvMCXUVGMLFH3702-48-75 10:06:00 Test Item Value Reference Range Interpretation Comments Platelet (test code = Platelet) 163 133-450 [facility] SouthlakeBgnfcheCLMTLIOAZH0649-63-07 10:06:00 Test Item Value Reference Range Interpretation Comments RDW (test code = RDW) 14.2 11.5-14.5 [facility]lakePeyedtpNKDVFJLQCA5422-26-93 10:06:00 Test Item Value Reference Range Interpretation Comments MCHC (test code = MCHC) 33.9 32.0-36.0 [facility]lakeAbfdscuSDMCGCBEGR2283-23-71 10:06:00 Test Item Value Reference Range Interpretation Comments MPV (test code = MPV) 8.3 7.4-10.4 [facility] SouthlakeZqjjalcNODNDCBNTE4944-96-37 10:06:00 Test Item Value Reference Range Interpretation Comments RBC (test code = RBC) 3.11 4.70-6.10 [facility] SouthlakeXqdhbmlAKVWJVVMYC9327-78-75 10:06:00 Test Item Value Reference Range Interpretation Comments WBC (test code = WBC) 12.3 3.7-10.4 [facility]lakeUphanxvOOPDNFGBFW4141-07-47 10:06:00 Test Item Value Reference Range Interpretation Comments MCV (test code = MCV) 84.3 80.0-94.0 [facility]lakeWuyenctDCOIQBDRGU3562-93-42 10:06:00 Test Item Value Reference Range Interpretation Comments Hct (test code = Hct) 26.2 42.0-54.0 [facility]lakeVitthhrUCHZGEXPCT3186-13-41 10:06:00 Test Item Value Reference Range Interpretation Comments Hgb (test code = Hgb) 8.9 14.0-18.0 [facility]2017-04-05 10:06:00 Test Item Value Reference Range Interpretation Comments Magnesium Lvl (test code = Magnesium 2.6 1.8-2.4 Lvl) [facility] HospitalAjxgvbfZOMHPCJXNQMC3257-08-33 10:06:00 Test Item Value Reference Range Interpretation Comments AGAP (test code = AGAP) 15.4 10.0-20.0 [facility] HospitalDbmbfdhMUYTEXCKISCB6345-50-07 10:06:00 Test Item Value Reference Range Interpretation Comments eGFR (test code = eGFR) 69 [facility] HospitalVevzjkoTIQCKBNJARSI9640-88-50 10:06:00 Test Item Value Reference Range Interpretation Comments Glucose Lvl (test code = Glucose Lvl) 110 70-99 [facility] HospitalJfgpihoZEDMPYZAPTGV5367-30-91 10:06:00 Test Item Value Reference Range Interpretation Comments BUN (test code = BUN) 26 7-22 [facility] HospitalRwzarikJHUUGEBNWOCV3491-07-14 10:06:00 Test Item Value Reference Range Interpretation Comments Chloride Lvl (test code = Chloride Lvl) 105 95-109 [facility] HospitalDirmjkuOUUJLVIZMVAW5345-26-55 10:06:00 Test Item Value Reference Range Interpretation Comments Creatinine Lvl (test code = Creatinine 1.10 0.50-1.40 Lvl) [facility] HospitalUboxcxsSBWZDKMNBLRX6307-89-58 10:06:00 Test Item Value Reference Range Interpretation Comments Sodium Lvl (test code = Sodium Lvl) 137 135-145 [facility]AtmvhhgMTBICCWNDLSQ8172-92-05 10:06:00 Test Item Value Reference Range Interpretation Comments Potassium Lvl (test code = Potassium 4.4 3.5-5.1 Lvl) [place] 367757-04-05 10:06:00 Test Item Value Reference Range Interpretation Comments CO2 (test code = CO2) 21 24-32 [facility] HospitalZmakkblUDGSLLNYUKUH5469-52-13 10:06:00 Test Item Value Reference Range Interpretation Comments Calcium Lvl (test code = Calcium Lvl) 8.1 8.5-10.5 [facility]lakeUicqzcqHVPISDSNUA7855-52-18 10:06:00 Test Item Value Reference Range Interpretation Comments Basophils (test code = 0.3 See_Comment [Aut omated message] The Basophils) system which ge nerated this result tra nsmitted reference range : <=1.0. The reference r [place] was not used to int erpret this result as normal/abnormal . [facility]lakeSvoonrlQUOXVJIDTC4712-80-90 10:06:00 Test Item Value Reference Range Interpretation Comments Segs-Bands # (test code = Segs-Bands #) 9.5 1.5-8.1 [facility]lakeQjpjvklTTCMXNKDWB5488-64-77 10:06:00 Test Item Value Reference Range Interpretation Comments Lymphocytes # (test code = Lymphocytes 1.2 1.0-5.5 #) [facility]lakeNqeabmkQVTJQIEHAY9976-62-98 10:06:00 Test Item Value Reference Range Interpretation Comments Monocytes # (test code 1.4 See_Comment [Aut omated message] The = Monocytes #) system which generated this result tra nsmitted reference range : <=0.8. The reference r lou[place] was not used to int erpret this result as normal/abnormal . [facility]lakeUmympinFTPAIEWJUN9315-43-32 10:06:00 Test Item Value Reference Range Interpretation Comments Basophils # (test code 0.0 See_Comment [Aut omated message] The = Basophils #) system which generated this result tra nsmitted reference range : <=0.2. The reference r lou[place] was not used to int erpret this result as normal/abnormal . [facility]lakeZsxskjiILKXDAGWZU1779-95-77 10:06:00 Test Item Value Reference Range Interpretation Comments Eosinophils # (test code 0.2 See_Comment [A utomated message] The = Eosinophils #) system whic h generated this result tra nsmitted reference range : <=0.5. The reference r lou[place] was not used to int erpret this result as normal/abnormal . [facility]lakeLxmfurgNSKLSOHSQL7835-39-77 10:06:00 Test Item Value Reference Range Interpretation Comments Polychrom (test code = Moderate *ABN*(06/29/16 Polychrom) 5:06 AM) [facility]lakeHetwtpjKMHHQPIJRV3051-99-94 10:06:00 Test Item Value Reference Range Interpretation Comments Plt Morph (test code = Normal (06/29/16 5:06 AM) Plt Morph) [facility]lakeXmkrsrqNGZJIVOBGP7850-97-15 10:06:00 Test Item Value Reference Range Interpretation Comments Lymphocytes (test code = Lymphocytes) 9.7 20.0-40.0 [facility]lakeRorntkzLLNVBOAQNO1623-52-01 10:06:00 Test Item Value Reference Range Interpretation Comments Segs (test code = Segs) 77.0 45.0-75.0 [facility]lakeGnicedeTHNPXEZDVB8573-49-80 10:06:00 Test Item Value Reference Range Interpretation Comments Eosinophils (test code = 1.6 See_Comment [A utomated message] The Eosinophils) system which ge nerated this result tra nsmitted reference range : <=4.0. The reference r lou[place] was not used to int erpret this result as normal/abnormal . [facility]lakeQnzgxlxZTRUCFHLHM1625-08-11 10:06:00 Test Item Value Reference Range Interpretation Comments Monocytes (test code = Monocytes) 11.4 2.0-12.0 [facility]lakeAoovimwLUORHGQWCH4733-70-79 10:06:00 Test Item Value Reference Range Interpretation Comments MCH (test code = MCH) 28.6 pg 27.0-31.0 [facility]lakeAmbnhvcXCXBIIKXJL2979-93-44 10:06:00 Test Item Value Reference Range Interpretation Comments Platelet (test code = Platelet) 163 133-450 [facility]lakeDmqwmwkIEBKGDTKKB3440-30-52 10:06:00 Test Item Value Reference Range Interpretation Comments RDW (test code = RDW) 14.2 11.5-14.5 [facility]lakeHeybnsdHVBRFCDTRU8863-02-40 10:06:00 Test Item Value Reference Range Interpretation Comments MCHC (test code = MCHC) 33.9 32.0-36.0 [facility]lakeOqmawhbRLZKVBXDNS6124-87-07 10:06:00 Test Item Value Reference Range Interpretation Comments MPV (test code = MPV) 8.3 7.4-10.4 [facility]lakeYzmmrxpCUTKWWFTDQ8568-14-52 10:06:00 Test Item Value Reference Range Interpretation Comments RBC (test code = RBC) 3.11 4.70-6.10 [facility]lakeYalfptsDLOXKJCPVF7910-97-39 10:06:00 Test Item Value Reference Range Interpretation Comments WBC (test code = WBC) 12.3 3.7-10.4 [facility]lakeFkahuljRPDRWNIMFY7282-53-39 10:06:00 Test Item Value Reference Range Interpretation Comments MCV (test code = MCV) 84.3 80.0-94.0 [facility]lakeXbaffqwUQERTLFWBC7773-90-03 10:06:00 Test Item Value Reference Range Interpretation Comments Hct (test code = Hct) 26.2 42.0-54.0 [facility] SouthlakeZtopquuQIJDEYXUCF8332-74-09 10:06:00 Test Item Value Reference Range Interpretation Comments Hgb (test code = Hgb) 8.9 14.0-18.0 [facility]2017-04-04 10:42:00 Test Item Value Reference Range Interpretation Comments eGFR (test code = eGFR) 56 [facility]2017-04-04 10:42:00 Test Item Value Reference Range Interpretation Comments Calcium Lvl (test code = Calcium Lvl) 8.3 8.5-10.5 [facility]2017-04-04 10:42:00 Test Item Value Reference Range Interpretation Comments Potassium Lvl (test code = Potassium 4.5 3.5-5.1 Lvl) [facility]2017-04-04 10:42:00 Test Item Value Reference Range Interpretation Comments CO2 (test code = CO2) 24 24-32 [facility]2017-04-04 10:42:00 Test Item Value Reference Range Interpretation Comments Chloride Lvl (test code = Chloride Lvl) 107 95-109 [facility]2017-04-04 10:42:00 Test Item Value Reference Range Interpretation Comments Glucose Lvl (test code = Glucose Lvl) 118 70-99 [facility]2017-04-04 10:42:00 Test Item Value Reference Range Interpretation Comments BUN (test code = BUN) 29 7-22 [facility]2017-04-04 10:42:00 Test Item Value Reference Range Interpretation Comments Sodium Lvl (test code = Sodium Lvl) 139 135-145 [facility]2017-04-04 10:42:00 Test Item Value Reference Range Interpretation Comments Creatinine Lvl (test code = Creatinine 1.30 0.50-1.40 Lvl) [facility]2017-04-04 10:42:00 Test Item Value Reference Range Interpretation Comments AGAP (test code = AGAP) 12.5 10.0-20.0 [facility]2017-04-04 10:42:00 Test Item Value Reference Range Interpretation Comments Magnesium Lvl (test code = Magnesium 2.7 1.8-2.4 Lvl) [facility]lakeTatwaamGAQVACLBYC3424-76-65 10:42:00 Test Item Value Reference Range Interpretation Comments Hgb (test code = Hgb) 9.0 14.0-18.0 [facility]lakeUdmviabIICYRIPDXP1522-16-56 10:42:00 Test Item Value Reference Range Interpretation Comments Hct (test code = Hct) 27.7 42.0-54.0 [facility]lakeNmmmpujVEZUKDZBBS1033-26-05 10:42:00 Test Item Value Reference Range Interpretation Comments MCV (test code = MCV) 87.2 80.0-94.0 [facility] SouthlakeTkmoomqPFQSQEDUAJ6377-91-91 10:42:00 Test Item Value Reference Range Interpretation Comments MCH (test code = MCH) 28.5 pg 27.0-31.0 [facility]lakeHpbzpzbWOSDIIXDZL9348-98-92 10:42:00 Test Item Value Reference Range Interpretation Comments MCHC (test code = MCHC) 32.6 32.0-36.0 [facility]lakeNwwixhsEJNBHGXHOD4349-82-04 10:42:00 Test Item Value Reference Range Interpretation Comments WBC (test code = WBC) 11.9 3.7-10.4 [facility]lakeJjbkkapHJBPJWDCWS9368-64-03 10:42:00 Test Item Value Reference Range Interpretation Comments RBC (test code = RBC) 3.17 4.70-6.10 [facility]lakeSgraazqKSPRWCJRTO8181-00-41 10:42:00 Test Item Value Reference Range Interpretation Comments RDW (test code = RDW) 14.6 11.5-14.5 [facility]lakeTqkbsfyMSWQVMHEQJ9260-59-98 10:42:00 Test Item Value Reference Range Interpretation Comments Platelet (test code = Platelet) 136 133-450 [facility]lakeGbgrmuiXOSTDWXXDX0094-91-84 10:42:00 Test Item Value Reference Range Interpretation Comments MPV (test code = MPV) 8.6 7.4-10.4 [facility]lakeCzuvxooOYXGJZBUWQ9290-43-60 10:42:00 Test Item Value Reference Range Interpretation Comments Lymphocytes # (test code = Lymphocytes 1.5 1.0-5.5 #) [facility]lakeHddbpovVRRABFJNQE7770-97-09 10:42:00 Test Item Value Reference Range Interpretation Comments Monocytes # (test code 1.4 See_Comment [Aut omated message] The = Monocytes #) system which generated this result tra nsmitted reference range : <=0.8. The reference r lou[place] was not used to int erpret this result as normal/abnormal . [facility]lakeFcahywtZYVJDPJXYI8805-43-39 10:42:00 Test Item Value Reference Range Interpretation Comments Eosinophils # (test code 0.1 See_Comment [A utomated message] The = Eosinophils #) system whic h generated this result tra nsmitted reference range : <=0.5. The reference r [place] was not used to int erpret this result as normal/abnormal . [facility]lakeGtvkhrqSDVJCRUSEZ0959-72-34 10:42:00 Test Item Value Reference Range Interpretation Comments Lymphocytes (test code = Lymphocytes) 12.3 20.0-40.0 [facility] SouthlakeLbklanoAMSLAUVWKF4492-95-58 10:42:00 Test Item Value Reference Range Interpretation Comments Monocytes (test code = Monocytes) 11.6 2.0-12.0 [facility]lakeArlinpxKPWVHVRXTY8559-16-26 10:42:00 Test Item Value Reference Range Interpretation Comments Eosinophils (test code = 1.1 See_Comment [A utomated message] The Eosinophils) system which ge nerated this result tra nsmitted reference range : <=4.0. The reference r [place] was not used to int erpret this result as normal/abnormal . [facility] SouthlakeZmsxnuhNRSXZXCATX6470-77-40 10:42:00 Test Item Value Reference Range Interpretation Comments Basophils (test code = 0.3 See_Comment [Aut omated message] The Basophils) system which ge nerated this result tra nsmitted reference range : <=1.0. The reference r [place] was not used to int erpret this result as normal/abnormal . [facility]lakeOpgltreXABZPMDGQN7411-50-54 10:42:00 Test Item Value Reference Range Interpretation Comments Segs-Bands # (test code = Segs-Bands #) 8.9 1.5-8.1 [facility]lakeQqwistaREACMBKULT8128-68-86 10:42:00 Test Item Value Reference Range Interpretation Comments Segs (test code = Segs) 74.7 45.0-75.0 [facility]2017-04-04 10:42:00 Test Item Value Reference Range Interpretation Comments eGFR (test code = eGFR) 56 [facility]2017-04-04 10:42:00 Test Item Value Reference Range Interpretation Comments Calcium Lvl (test code = Calcium Lvl) 8.3 8.5-10.5 [facility]2017-04-04 10:42:00 Test Item Value Reference Range Interpretation Comments Potassium Lvl (test code = Potassium 4.5 3.5-5.1 Lvl) [facility]2017-04-04 10:42:00 Test Item Value Reference Range Interpretation Comments CO2 (test code = CO2) 24 24-32 [facility]2017-04-04 10:42:00 Test Item Value Reference Range Interpretation Comments Chloride Lvl (test code = Chloride Lvl) 107 95-109 [facility]2017-04-04 10:42:00 Test Item Value Reference Range Interpretation Comments Glucose Lvl (test code = Glucose Lvl) 118 70-99 [facility]2017-04-04 10:42:00 Test Item Value Reference Range Interpretation Comments BUN (test code = BUN) 29 7-22 [facility]2017-04-04 10:42:00 Test Item Value Reference Range Interpretation Comments Sodium Lvl (test code = Sodium Lvl) 139 135-145 [facility]2017-04-04 10:42:00 Test Item Value Reference Range Interpretation Comments Creatinine Lvl (test code = Creatinine 1.30 0.50-1.40 Lvl) [facility]2017-04-04 10:42:00 Test Item Value Reference Range Interpretation Comments AGAP (test code = AGAP) 12.5 10.0-20.0 [facility]2017-04-04 10:42:00 Test Item Value Reference Range Interpretation Comments Magnesium Lvl (test code = Magnesium 2.7 1.8-2.4 Lvl) [place] 213297-04-04 10:42:00 Test Item Value Reference Range Interpretation Comments Hgb (test code = Hgb) 9.0 14.0-18.0 [facility]lakeJzkowypRBZEXRHYDB0934-75-85 10:42:00 Test Item Value Reference Range Interpretation Comments Hct (test code = Hct) 27.7 42.0-54.0 [facility]lakeBmtdagbEACIECIOKL5229-91-18 10:42:00 Test Item Value Reference Range Interpretation Comments MCV (test code = MCV) 87.2 80.0-94.0 [facility]lakeMpftmzdEFAILXXLII0948-92-08 10:42:00 Test Item Value Reference Range Interpretation Comments MCH (test code = MCH) 28.5 pg 27.0-31.0 [facility]lakeQvdsogjPRAXUDFTGK9550-02-21 10:42:00 Test Item Value Reference Range Interpretation Comments MCHC (test code = MCHC) 32.6 32.0-36.0 [facility]lakeDgyascgAINXEUXKOY9136-01-04 10:42:00 Test Item Value Reference Range Interpretation Comments WBC (test code = WBC) 11.9 3.7-10.4 [facility]lakeGpyalffXVYRJAEIZM5305-02-32 10:42:00 Test Item Value Reference Range Interpretation Comments RBC (test code = RBC) 3.17 4.70-6.10 [facility]lakeKlcdevbOVENXVDUUX7208-46-36 10:42:00 Test Item Value Reference Range Interpretation Comments RDW (test code = RDW) 14.6 11.5-14.5 [facility]lakeGzdkeyjHSXTJRRKNT2821-69-33 10:42:00 Test Item Value Reference Range Interpretation Comments Platelet (test code = Platelet) 136 133-450 [facility]lakeIekazpqVQRZRUROCO0021-05-16 10:42:00 Test Item Value Reference Range Interpretation Comments MPV (test code = MPV) 8.6 7.4-10.4 [facility]lakeNnrkiakLNJDXXOSCG6742-85-54 10:42:00 Test Item Value Reference Range Interpretation Comments Lymphocytes # (test code = Lymphocytes 1.5 1.0-5.5 #) [facility]lakeJpddjylEGBQYEIEPW7170-62-79 10:42:00 Test Item Value Reference Range Interpretation Comments Monocytes # (test code 1.4 See_Comment [Aut omated message] The = Monocytes #) system which generated this result tra nsmitted reference range : <=0.8. The reference r [place] was not used to int erpret this result as normal/abnormal . [facility] SouthlakeClntfetLBIXMCHOHI5717-82-17 10:42:00 Test Item Value Reference Range Interpretation Comments Eosinophils # (test code 0.1 See_Comment [A utomated message] The = Eosinophils #) system whic h generated this result tra nsmitted reference range : <=0.5. The reference r [place] was not used to int erpret this result as normal/abnormal . [facility] SouthlakeMapneptEHKRHSAHJA0154-52-63 10:42:00 Test Item Value Reference Range Interpretation Comments Lymphocytes (test code = Lymphocytes) 12.3 20.0-40.0 [facility] SouthlakeOiaxewxOPUVLVXNLS2763-53-48 10:42:00 Test Item Value Reference Range Interpretation Comments Monocytes (test code = Monocytes) 11.6 2.0-12.0 [facility] SouthlakePokgwmaESBQKIQUTI3860-79-32 10:42:00 Test Item Value Reference Range Interpretation Comments Eosinophils (test code = 1.1 See_Comment [A utomated message] The Eosinophils) system which ge nerated this result tra nsmitted reference range : <=4.0. The reference r [place] was not used to int erpret this result as normal/abnormal . [facility]lakeGsgcfjbAKOXXSTSEV7991-32-76 10:42:00 Test Item Value Reference Range Interpretation Comments Basophils (test code = 0.3 See_Comment [Aut omated message] The Basophils) system which ge nerated this result tra nsmitted reference range : <=1.0. The reference r [place] was not used to int erpret this result as normal/abnormal . [facility]lakeBuksfseANVRDPKEDI1261-50-55 10:42:00 Test Item Value Reference Range Interpretation Comments Segs-Bands # (test code = Segs-Bands #) 8.9 1.5-8.1 [facility]lakeJdcoujdIBGJXRDCLJ2523-23-31 10:42:00 Test Item Value Reference Range Interpretation Comments Segs (test code = Segs) 74.7 45.0-75.0 [facility]2017-04-04 10:42:00 Test Item Value Reference Range Interpretation Comments eGFR (test code = eGFR) 56 [facility]2017-04-04 10:42:00 Test Item Value Reference Range Interpretation Comments Calcium Lvl (test code = Calcium Lvl) 8.3 8.5-10.5 [facility]2017-04-04 10:42:00 Test Item Value Reference Range Interpretation Comments Potassium Lvl (test code = Potassium 4.5 3.5-5.1 Lvl) [facility]2017-04-04 10:42:00 Test Item Value Reference Range Interpretation Comments CO2 (test code = CO2) 24 24-32 [facility]2017-04-04 10:42:00 Test Item Value Reference Range Interpretation Comments Chloride Lvl (test code = Chloride Lvl) 107 95-109 [facility]2017-04-04 10:42:00 Test Item Value Reference Range Interpretation Comments Glucose Lvl (test code = Glucose Lvl) 118 70-99 [facility]2017-04-04 10:42:00 Test Item Value Reference Range Interpretation Comments BUN (test code = BUN) 29 7-22 [facility]2017-04-04 10:42:00 Test Item Value Reference Range Interpretation Comments Sodium Lvl (test code = Sodium Lvl) 139 135-145 [facility]2017-04-04 10:42:00 Test Item Value Reference Range Interpretation Comments Creatinine Lvl (test code = Creatinine 1.30 0.50-1.40 Lvl) [facility]2017-04-04 10:42:00 Test Item Value Reference Range Interpretation Comments AGAP (test code = AGAP) 12.5 10.0-20.0 [facility]2017-04-04 10:42:00 Test Item Value Reference Range Interpretation Comments Magnesium Lvl (test code = Magnesium 2.7 1.8-2.4 Lvl) [facility]lakeTvhtowoYQYAPMAAQV5482-53-43 10:42:00 Test Item Value Reference Range Interpretation Comments Hgb (test code = Hgb) 9.0 14.0-18.0 [facility]lakeBkwadofFAVDFFWDPV9774-71-58 10:42:00 Test Item Value Reference Range Interpretation Comments Hct (test code = Hct) 27.7 42.0-54.0 [facility]lakeEsimirwASVMFAFWBQ4673-86-22 10:42:00 Test Item Value Reference Range Interpretation Comments MCV (test code = MCV) 87.2 80.0-94.0 [facility] SouthlakeRvimsuqBHTLNVLGBL5211-90-34 10:42:00 Test Item Value Reference Range Interpretation Comments MCH (test code = MCH) 28.5 pg 27.0-31.0 [facility] SouthlakeQgugnuaFTCAHECDXF5254-19-23 10:42:00 Test Item Value Reference Range Interpretation Comments MCHC (test code = MCHC) 32.6 32.0-36.0 [facility] SouthlakeVunchyqTMIEBPXWPA6093-48-34 10:42:00 Test Item Value Reference Range Interpretation Comments WBC (test code = WBC) 11.9 3.7-10.4 [facility]lakeAmzijvuJBLHRUVWAW7877-97-08 10:42:00 Test Item Value Reference Range Interpretation Comments RBC (test code = RBC) 3.17 4.70-6.10 [facility]lakeLbwgystVJXZMHRKFL1835-28-92 10:42:00 Test Item Value Reference Range Interpretation Comments RDW (test code = RDW) 14.6 11.5-14.5 [facility]lakeIzijqnxSNTPEUMWMN8424-82-57 10:42:00 Test Item Value Reference Range Interpretation Comments Platelet (test code = Platelet) 136 133-450 [facility]lakeGcpiskqLFFXOZRCZW1751-03-47 10:42:00 Test Item Value Reference Range Interpretation Comments MPV (test code = MPV) 8.6 7.4-10.4 [facility]lakeFxndzspPXNDQTHYVN8756-09-45 10:42:00 Test Item Value Reference Range Interpretation Comments Lymphocytes # (test code = Lymphocytes 1.5 1.0-5.5 #) [facility] SouthlakeYakwwdwIRKGTEBLDS1145-63-47 10:42:00 Test Item Value Reference Range Interpretation Comments Monocytes # (test code 1.4 See_Comment [Aut omated message] The = Monocytes #) system which generated this result tra nsmitted reference range : <=0.8. The reference r [place] was not used to int erpret this result as normal/abnormal . [facility]lakeRlmtegrDYUOUATMXR9033-34-30 10:42:00 Test Item Value Reference Range Interpretation Comments Eosinophils # (test code 0.1 See_Comment [A utomated message] The = Eosinophils #) system whic h generated this result tra nsmitted reference range : <=0.5. The reference r [place] was not used to int erpret this result as normal/abnormal . [facility]lakeHdvymksLHPMTXHCOH3925-72-45 10:42:00 Test Item Value Reference Range Interpretation Comments Lymphocytes (test code = Lymphocytes) 12.3 20.0-40.0 [facility]lakeEgislodXCRBLHHBTZ2947-99-04 10:42:00 Test Item Value Reference Range Interpretation Comments Monocytes (test code = Monocytes) 11.6 2.0-12.0 [facility] SouthlakeKeruwtiOPTFMTLGTR9615-64-14 10:42:00 Test Item Value Reference Range Interpretation Comments Eosinophils (test code = 1.1 See_Comment [A utomated message] The Eosinophils) system which ge nerated this result tra nsmitted reference range : <=4.0. The reference r [place] was not used to int erpret this result as normal/abnormal . [facility]lakeLjjzunmDLEEXYQMUP5632-12-71 10:42:00 Test Item Value Reference Range Interpretation Comments Basophils (test code = 0.3 See_Comment [Aut omated message] The Basophils) system which ge nerated this result tra nsmitted reference range : <=1.0. The reference r [place] was not used to int erpret this result as normal/abnormal . [facility]lakeTifvgyaPQVIKIEOHM7945-82-86 10:42:00 Test Item Value Reference Range Interpretation Comments Segs-Bands # (test code = Segs-Bands #) 8.9 1.5-8.1 [facility]lakeAgaliqvNRXGLTXMHM9199-95-38 10:42:00 Test Item Value Reference Range Interpretation Comments Segs (test code = Segs) 74.7 45.0-75.0 [facility]2017-04-03 09:50:00 Test Item Value Reference Range Interpretation Comments Magnesium Lvl (test code = Magnesium 2.4 1.8-2.4 Lvl) [facility]lakeWibmyrwCCJYWXMDEX1257-12-16 09:50:00 Test Item Value Reference Range Interpretation Comments WBC (test code = WBC) 18.6 3.7-10.4 [facility] [facility]ZgvfnhfJJLVHYTYCW6221-36-95 09:50:00 Test Item Value Reference Range Interpretation Comments RDW (test code = RDW) 14.7 11.5-14.5 [facility]JldjttxEGLXPJWWYM6074-24-42 09:50:00 Test Item Value Reference Range Interpretation Comments MCHC (test code = MCHC) 33.1 32.0-36.0 [facility]lakeJsjqpulEUOPMVZXII2171-37-64 09:50:00 Test Item Value Reference Range Interpretation Comments Hct (test code = Hct) 29.5 42.0-54.0 [facility]lakeCzkegefQPHHHHUFWQ9450-82-45 09:50:00 Test Item Value Reference Range Interpretation Comments MCH (test code = MCH) 28.1 pg 27.0-31.0 [facility]lakeGvbwrkpNRXHSOZQBK8776-36-85 09:50:00 Test Item Value Reference Range Interpretation Comments MCV (test code = MCV) 84.7 80.0-94.0 [facility]lakeOublrwiMNDRAVUKSO0641-04-72 09:50:00 Test Item Value Reference Range Interpretation Comments MPV (test code = MPV) 9.7 7.4-10.4 [facility]lakeZfvbipsUPBYUPXONS3598-74-27 09:50:00 Test Item Value Reference Range Interpretation Comments Platelet (test code = Platelet) 118 133-450 [facility]lakeJyymonqUUSWYOYQIQ3050-77-99 09:50:00 Test Item Value Reference Range Interpretation Comments Hgb (test code = Hgb) 9.8 14.0-18.0 [facility]lakeSfiamyhLZKZNRWWCG0477-58-19 09:50:00 Test Item Value Reference Range Interpretation Comments RBC (test code = RBC) 3.48 4.70-6.10 [facility]lakePtxbuqfGJWPYGHRAU9776-14-78 09:50:00 Test Item Value Reference Range Interpretation Comments Lymphocytes # (test code = Lymphocytes 2.0 1.0-5.5 #) [facility]lakeHkghzqcAICDIWPAVW3409-96-96 09:50:00 Test Item Value Reference Range Interpretation Comments Segs (test code = Segs) 76.1 45.0-75.0 [facility]lakeDkakxksMRSXAIKVNT2838-89-93 09:50:00 Test Item Value Reference Range Interpretation Comments Eosinophils (test code = 0.1 See_Comment [A utomated message] The Eosinophils) system which ge nerated this result tra nsmitted reference range : <=4.0. The reference r louis was not used to int erpret this result as normal/abnormal . [facility]lakeNqlryeqHSFCEBNQXF6153-01-87 09:50:00 Test Item Value Reference Range Interpretation Comments Monocytes (test code = Monocytes) 12.7 2.0-12.0 [facility]lakeEtkpcltNWSELPNTHX0553-23-21 09:50:00 Test Item Value Reference Range Interpretation Comments Segs-Bands # (test code = Segs-Bands #) 14.2 1.5-8.1 [facility]lakeYdnyrfvSLWJSZSYNM7331-33-99 09:50:00 Test Item Value Reference Range Interpretation Comments Basophils (test code = 0.5 See_Comment [Aut omated message] The Basophils) system which ge nerated this result tra nsmitted reference range : <=1.0. The reference r louis was not used to int erpret this result as normal/abnormal . [facility]lakeNcrdjyaZYVGOXPVSL6843-02-75 09:50:00 Test Item Value Reference Range Interpretation Comments Lymphocytes (test code = Lymphocytes) 10.6 20.0-40.0 [facility]lakeZmcqznuWVJTYKZDPJ0605-58-37 09:50:00 Test Item Value Reference Range Interpretation Comments Basophils # (test code 0.1 See_Comment [Aut omated message] The = Basophils #) system which generated this result tra nsmitted reference range : <=0.2. The reference r louis was not used to int erpret this result as normal/abnormal . [facility]lakeRkaosmhJDDGMZWOXM5743-98-89 09:50:00 Test Item Value Reference Range Interpretation Comments Monocytes # (test code 2.4 See_Comment [Aut omated message] The = Monocytes #) system which generated this result tra nsmitted reference range : <=0.8. The reference r louis was not used to int erpret this result as normal/abnormal . [facility]2017-04-03 09:50:00 Test Item Value Reference Range Interpretation Comments Magnesium Lvl (test code = Magnesium 2.4 1.8-2.4 Lvl) [facility]lakeDxiyjwwNDLSQXNPRH4010-73-47 09:50:00 Test Item Value Reference Range Interpretation Comments WBC (test code = WBC) 18.6 3.7-10.4 [facility]lakePebroehJPDZWEOBRY1979-29-42 09:50:00 Test Item Value Reference Range Interpretation Comments RDW (test code = RDW) 14.7 11.5-14.5 [facility]lakeYzbfecpSENGROOFJI7505-10-46 09:50:00 Test Item Value Reference Range Interpretation Comments MCHC (test code = MCHC) 33.1 32.0-36.0 [facility]lakeLhiezjeOIGBJGJGUL3375-74-04 09:50:00 Test Item Value Reference Range Interpretation Comments Hct (test code = Hct) 29.5 42.0-54.0 [facility]lakePomtiouOUPBRYWLHN3188-90-10 09:50:00 Test Item Value Reference Range Interpretation Comments MCH (test code = MCH) 28.1 pg 27.0-31.0 [facility]lakeAleundlOBLNRNBVOI8734-66-56 09:50:00 Test Item Value Reference Range Interpretation Comments MCV (test code = MCV) 84.7 80.0-94.0 [facility]lakeWdhdqfcDWFJCASVGB2688-21-75 09:50:00 Test Item Value Reference Range Interpretation Comments MPV (test code = MPV) 9.7 7.4-10.4 [facility]lakeExpdvwhALWBZQROSY3830-00-72 09:50:00 Test Item Value Reference Range Interpretation Comments Platelet (test code = Platelet) 118 133-450 [facility]lakeKxfxodwTHGPSLDKTL2942-34-32 09:50:00 Test Item Value Reference Range Interpretation Comments Hgb (test code = Hgb) 9.8 14.0-18.0 [facility]lakeGkvjcnfYYLRAJZYSB4407-44-79 09:50:00 Test Item Value Reference Range Interpretation Comments RBC (test code = RBC) 3.48 4.70-6.10 [facility]lakeMonmxydIQZVNSCBWX4630-23-03 09:50:00 Test Item Value Reference Range Interpretation Comments Lymphocytes # (test code = Lymphocytes 2.0 1.0-5.5 #) [facility]lakeSxqkhyqSBVUIMLRXJ2913-53-88 09:50:00 Test Item Value Reference Range Interpretation Comments Segs (test code = Segs) 76.1 45.0-75.0 [facility]lakeDtldrioYYTLFHULMD4946-55-26 09:50:00 Test Item Value Reference Range Interpretation Comments Eosinophils (test code = 0.1 See_Comment [A utomated message] The Eosinophils) system which ge nerated this result tra nsmitted reference range : <=4.0. The reference r louis was not used to int erpret this result as normal/abnormal . [facility]lakeHxeskswMUFUBYXEHG6174-40-42 09:50:00 Test Item Value Reference Range Interpretation Comments Monocytes (test code = Monocytes) 12.7 2.0-12.0 [facility]lakeIlbwlshVUYEVSBCBY4736-74-37 09:50:00 Test Item Value Reference Range Interpretation Comments Segs-Bands # (test code = Segs-Bands #) 14.2 1.5-8.1 [facility]lakeSuxlzofNEHAQZUBWN8675-72-91 09:50:00 Test Item Value Reference Range Interpretation Comments Basophils (test code = 0.5 See_Comment [Aut omated message] The Basophils) system which ge nerated this result tra nsmitted reference range : <=1.0. The reference r lou[place] was not used to int erpret this result as normal/abnormal . [facility]lakeDeellggYVTZTCSICI0562-26-39 09:50:00 Test Item Value Reference Range Interpretation Comments Lymphocytes (test code = Lymphocytes) 10.6 20.0-40.0 [facility]lakeCvzbsatODEMVGRWXB0410-58-07 09:50:00 Test Item Value Reference Range Interpretation Comments Basophils # (test code 0.1 See_Comment [Aut omated message] The = Basophils #) system which generated this result tra nsmitted reference range : <=0.2. The reference r lou[place] was not used to int erpret this result as normal/abnormal . [facility]lakeSdejnepRFSIUVAMWJ7965-18-81 09:50:00 Test Item Value Reference Range Interpretation Comments Monocytes # (test code 2.4 See_Comment [Aut omated message] The = Monocytes #) system which generated this result tra nsmitted reference range : <=0.8. The reference r lou[place] was not used to int erpret this result as normal/abnormal . [facility]2017-04-03 09:50:00 Test Item Value Reference Range Interpretation Comments Magnesium Lvl (test code = Magnesium 2.4 1.8-2.4 Lvl) [facility]lakeHolhvwsXPJAYMFBZQ6668-19-28 09:50:00 Test Item Value Reference Range Interpretation Comments WBC (test code = WBC) 18.6 3.7-10.4 [facility]lakeFhhldwhRRDQECAGQO8051-59-90 09:50:00 Test Item Value Reference Range Interpretation Comments RDW (test code = RDW) 14.7 11.5-14.5 [facility]lakeCwkqnveABMDCPYVQY0837-52-58 09:50:00 Test Item Value Reference Range Interpretation Comments MCHC (test code = MCHC) 33.1 32.0-36.0 [facility]lakeHqkfcpkSYHVRHKUCH5824-60-83 09:50:00 Test Item Value Reference Range Interpretation Comments Hct (test code = Hct) 29.5 42.0-54.0 [facility]lakeLuxnqsxEWYRQYQSKO5716-79-12 09:50:00 Test Item Value Reference Range Interpretation Comments MCH (test code = MCH) 28.1 pg 27.0-31.0 [facility]lakeDaufzbxAXKGWQTRZI8500-93-33 09:50:00 Test Item Value Reference Range Interpretation Comments MCV (test code = MCV) 84.7 80.0-94.0 [facility]lakeXosnaqfCBMMYVOBDJ1042-82-78 09:50:00 Test Item Value Reference Range Interpretation Comments MPV (test code = MPV) 9.7 7.4-10.4 [facility]lakeAgppzxqTDACTWMZNW9478-95-19 09:50:00 Test Item Value Reference Range Interpretation Comments Platelet (test code = Platelet) 118 133-450 [facility]lakeCipzwvkATESLVOWXC9542-06-78 09:50:00 Test Item Value Reference Range Interpretation Comments Hgb (test code = Hgb) 9.8 14.0-18.0 [facility]lakeUbqnkmmHWMKJXGNFB4779-89-03 09:50:00 Test Item Value Reference Range Interpretation Comments RBC (test code = RBC) 3.48 4.70-6.10 [facility]lakeWnpcffcAXCIEWSXZB2893-95-54 09:50:00 Test Item Value Reference Range Interpretation Comments Lymphocytes # (test code = Lymphocytes 2.0 1.0-5.5 #) [facility]lakeSffhtxiPTNXOAEDEK0258-76-08 09:50:00 Test Item Value Reference Range Interpretation Comments Segs (test code = Segs) 76.1 45.0-75.0 [facility]lakeMtloqsmDXSEQCSXAZ9854-39-27 09:50:00 Test Item Value Reference Range Interpretation Comments Eosinophils (test code = 0.1 See_Comment [A utomated message] The Eosinophils) system which ge nerated this result tra nsmitted reference range : <=4.0. The reference r lou[place] was not used to int erpret this result as normal/abnormal . [facility]lakeXvlbwdoDEVSVXZQMT8804-41-45 09:50:00 Test Item Value Reference Range Interpretation Comments Monocytes (test code = Monocytes) 12.7 2.0-12.0 [facility]lakeUvbtqxuULHRTIWGHF0188-86-94 09:50:00 Test Item Value Reference Range Interpretation Comments Segs-Bands # (test code = Segs-Bands #) 14.2 1.5-8.1 [facility]lakeCehngmsXMMQZOZQGJ7231-83-67 09:50:00 Test Item Value Reference Range Interpretation Comments Basophils (test code = 0.5 See_Comment [Aut omated message] The Basophils) system which ge nerated this result tra nsmitted reference range : <=1.0. The reference r louis was not used to int erpret this result as normal/abnormal . [facility]lakeGparvikWCHCPZTPHP1968-90-74 09:50:00 Test Item Value Reference Range Interpretation Comments Lymphocytes (test code = Lymphocytes) 10.6 20.0-40.0 [facility]lakeEvdnoogQYVOWAVWGN1670-37-91 09:50:00 Test Item Value Reference Range Interpretation Comments Basophils # (test code 0.1 See_Comment [Aut omated message] The = Basophils #) system which generated this result tra nsmitted reference range : <=0.2. The reference r lou[place] was not used to int erpret this result as normal/abnormal . [facility]lakeBanggsjRLHGAFWCHO3103-96-98 09:50:00 Test Item Value Reference Range Interpretation Comments Monocytes # (test code 2.4 See_Comment [Aut omated message] The = Monocytes #) system which generated this result tra nsmitted reference range : <=0.8. The reference r lou[place] was not used to int erpret this result as normal/abnormal . [facility] NQZHA3719-[facility] 08:42:00 Test Item Value Reference Range Interpretation Comments Phosphorus (test code = Phosphorus) 2.0 2.5-4.5 [facility]lakeAiryhelOSHGQGKARY3015-62-00 08:42:00 Test Item Value Reference Range Interpretation Comments Eosinophils # (test code 0.0 See_Comment [A utomated message] The = Eosinophils #) system whic h generated this result tra nsmitted reference range : <=0.5. The reference r louis was not used to int erpret this result as normal/abnormal . [facility]lakeLaswyhnXPMFXHMZCG7309-76-18 08:42:00 Test Item Value Reference Range Interpretation Comments Basophils # (test code 0.0 See_Comment [Aut omated message] The = Basophils #) system which generated this result tra nsmitted reference range : <=0.2. The reference r louis was not used to int erpret this result as normal/abnormal . [facility] DGPENLW5358-55-82 08:42:00 Test Item Value Reference Range Interpretation Comments Ca Ion WB (test code = Ca Ion WB) 1.11 1.05-1.25 [facility]RO[facility] PDHARUX0509-13-86 08:42:00 Test Item Value Reference Range Interpretation Comments Ca Norm WB (test code = Ca Norm WB) 1.11 1.05-1.25 [facility] TRTLSLIKP2158-48-89 08:42:00 Test Item Value Reference Range Interpretation Comments Hgb A1C (test code = Hgb A1C) 6.4 [facility] HospitalGl[facility] Wireless EOKZI1640-91-26 08:42:00 Test Item Value Reference Range Interpretation Comments Phosphorus (test code = Phosphorus) 2.0 2.5-4.5 [facility]lakeHzzmwbyNNALSXKJZJ1104-99-92 08:42:00 Test Item Value Reference Range Interpretation Comments Eosinophils # (test code 0.0 See_Comment [A utomated message] The = Eosinophils #) system whic h generated this result tra nsmitted reference range : <=0.5. The reference r louis was not used to int erpret this result as normal/abnormal . [facility]lakeJuktirbAQODVRJEBA0506-57-24 08:42:00 Test Item Value Reference Range Interpretation Comments Basophils # (test code 0.0 See_Comment [Aut omated message] The = Basophils #) system which generated this result tra nsmitted reference range : <=0.2. The reference r lou[place] was not used to int erpret this result as normal/abnormal . [facility]2017-04-02 08:42:00 Test Item Value Reference Range Interpretation Comments Ca Ion WB (test code = Ca Ion WB) 1.11 1.05-1.25 [facility]2017-04-02 08:42:00 Test Item Value Reference Range Interpretation Comments Ca Norm WB (test code = Ca Norm WB) 1.11 1.05-1.25 [facility]2017-04-02 08:42:00 Test Item Value Reference Range Interpretation Comments Hgb A1C (test code = Hgb A1C) 6.4 [facility]2017-04-02 08:42:00 Test Item Value Reference Range Interpretation Comments Phosphorus (test code = Phosphorus) 2.0 2.5-4.5 [facility]lakeTrswfqqXQDNYXZFHL1437-52-24 08:42:00 Test Item Value Reference Range Interpretation Comments Eosinophils # (test code 0.0 See_Comment [A utomated message] The = Eosinophils #) system whic h generated this result tra nsmitted reference range : <=0.5. The reference r louis was not used to int erpret this result as normal/abnormal . [facility] HospitalJgoznemYSQWJGMVGK8766-65-64 08:42:00 Test Item Value Reference Range Interpretation Comments Basophils # (test code 0.0 See_Comment [Aut omated message] The = Basophils #) system which generated this result tra nsmitted reference range : <=0.2. The reference r louis was not used to int erpret this result as normal/abnormal . [facility] HospitalPARATHYROID QNDGXBG6421-92-75 08:42:00 Test Item Value Reference Range Interpretation Comments Ca Ion WB (test code = Ca Ion WB) 1.11 1.05-1.25 [facility]RO[facility] YDTCAYO4055-52-50 08:42:00 Test Item Value Reference Range Interpretation Comments Ca Norm WB (test code = Ca Norm WB) 1.11 1.05-1.25 [facility] MHDIWQVVU5048-72-86 08:42:00 Test Item Value Reference Range Interpretation Comments Hgb A1C (test code = Hgb A1C) 6.4 [facility]Creation TechnologiesCHEM BQQGM2345-85-37 07:28:00 Test Item Value Reference Range Interpretation Comments Phosphorus (test code = Phosphorus) 1.6 2.5-4.5 [facility] HospitalYdppcnhDNIJEXZRLS0843-46-25 07:28:00 Test Item Value Reference Range Interpretation Comments RBC Morph (test code = Normal (06/25/16 2:28 AM) RBC Morph) [facility] HospitalSsctoqyCDFHRCBWGH4633-53-21 07:28:00 Test Item Value Reference Range Interpretation Comments Plt Morph (test code = Normal (06/25/16 2:28 AM) Plt Morph) [facility] HospitalannPARATHYROID JIJSLVW3389-25-62 07:28:00 Test Item Value Reference Range Interpretation Comments Ca Norm WB (test code = Ca Norm WB) 1.06 1.05-1.25 [facility] HospitalannPARATHYROID [id number] 07:28:00 Test Item Value Reference Range Interpretation Comments Ca Ion WB (test code = Ca Ion WB) 1.09 1.05-1.25 [facility] HospitalannCHEM [id number] 07:28:00 Test Item Value Reference Range Interpretation Comments Phosphorus (test code = Phosphorus) 1.6 2.5-4.5 [facility]lakeGrxteklAKZCLDLKPY8784-08-82 07:28:00 Test Item Value Reference Range Interpretation Comments RBC Morph (test code = Normal (06/25/16 2:28 AM) RBC Morph) [facility]lakeCjqossbNTUAHMMXVD2848-31-41 07:28:00 Test Item Value Reference Range Interpretation Comments Plt Morph (test code = Normal (06/25/16 2:28 AM) Plt Morph) [facility]2017-04-01 07:28:00 Test Item Value Reference Range Interpretation Comments Ca Norm WB (test code = Ca Norm WB) 1.06 1.05-1.25 [facility]2017-04-01 07:28:00 Test Item Value Reference Range Interpretation Comments Ca Ion WB (test code = Ca Ion WB) 1.09 1.05-1.25 [facility]2017-04-01 07:28:00 Test Item Value Reference Range Interpretation Comments Phosphorus (test code = Phosphorus) 1.6 2.5-4.5 [facility]lakePijlptnCMGNZPCAYN5811-09-21 07:28:00 Test Item Value Reference Range Interpretation Comments RBC Morph (test code = Normal (06/25/16 2:28 AM) RBC Morph) [facility]lakeFzwroqsFNKOMBKDVY1191-73-30 07:28:00 Test Item Value Reference Range Interpretation Comments Plt Morph (test code = Normal (06/25/16 2:28 AM) Plt Morph) [facility]2017-04-01 07:28:00 Test Item Value Reference Range Interpretation Comments Ca Norm WB (test code = Ca Norm WB) 1.06 1.05-1.25 [facility]2017-04-01 07:28:00 Test Item Value Reference Range Interpretation Comments Ca Ion WB (test code = Ca Ion WB) 1.09 1.05-1.25 [facility]lakeOtnezdmCDDRAFULJE5674-19-60 23:42:00 Test Item Value Reference Range Interpretation Comments POC Hematocrit (test code = POC 34.0 42.0-54.0 Hematocrit) [facility]lakeLyanlaeXVFKRESPXI6965-92-15 23:42:00 Test Item Value Reference Range Interpretation Comments POC Hemoglobin (test code = POC 11.6 14.0-18.0 Hemoglobin) [facility]lakeWfhzxxcREFTLPFFCY5485-17-22 23:42:00 Test Item Value Reference Range Interpretation Comments POC Ion Ca (test code = POC Ion Ca) 1.09 1.05-1.25 [facility]lakeQneyfilZYMHVJFOSS2234-85-09 23:42:00 Test Item Value Reference Range Interpretation Comments POC Potassium (test code = POC 4.4 3.5-5.1 Potassium) [facility]lakeKtexqthDYQAQDSFLW9819-37-01 23:42:00 Test Item Value Reference Range Interpretation Comments POC Sodium (test code = POC Sodium) 143 135-145 [facility]lakeNwnxdadFGTDKKTTJZ3119-87-24 23:42:00 Test Item Value Reference Range Interpretation Comments POC Hematocrit (test code = POC 34.0 42.0-54.0 Hematocrit) [facility]lakeDrefxxlCCEMQSFHBB8363-69-01 23:42:00 Test Item Value Reference Range Interpretation Comments POC Hemoglobin (test code = POC 11.6 14.0-18.0 Hemoglobin) [facility]lakeUnpkixmSDANCEAWKP7555-56-14 23:42:00 Test Item Value Reference Range Interpretation Comments POC Ion Ca (test code = POC Ion Ca) 1.09 1.05-1.25 [facility]lakeTswoxhhXBRMRDXDBZ2914-60-94 23:42:00 Test Item Value Reference Range Interpretation Comments POC Potassium (test code = POC 4.4 3.5-5.1 Potassium) [facility]lakeAxeuaojHJDLTDFEBZ5812-41-65 23:42:00 Test Item Value Reference Range Interpretation Comments POC Sodium (test code = POC Sodium) 143 135-145 [facility]lakeUptkpfsMWZXBFJPWB2815-65-58 23:42:00 Test Item Value Reference Range Interpretation Comments POC Hematocrit (test code = POC 34.0 42.0-54.0 Hematocrit) [facility]lakeNuwhobzEWLSYNGWZY7824-74-28 23:42:00 Test Item Value Reference Range Interpretation Comments POC Hemoglobin (test code = POC 11.6 14.0-18.0 Hemoglobin) [facility]lakeQakbfcnTVYFXNHFYS3808-02-14 23:42:00 Test Item Value Reference Range Interpretation Comments POC Ion Ca (test code = POC Ion Ca) 1.09 1.05-1.25 [facility]lakeHizymibCKTSRXPHJM2587-56-81 23:42:00 Test Item Value Reference Range Interpretation Comments POC Potassium (test code = POC 4.4 3.5-5.1 Potassium) [facility]lakeAdwhphjFFZEDNLIHC8943-31-35 23:42:00 Test Item Value Reference Range Interpretation Comments POC Sodium (test code = POC Sodium) 143 135-145 [facility]2017-03-31 23:11:00 Test Item Value Reference Range Interpretation Comments A/G Ratio (test code = A/G Ratio) 1.4 0.7-1.6 [facility]2017-03-31 23:11:00 Test Item Value Reference Range Interpretation Comments Globulin (test code = Globulin) 2.1 2.7-4.2 [facility]2017-03-31 23:11:00 Test Item Value Reference Range Interpretation Comments Bili Indirect (test 0.4 See_Comment [Automa jigar message] The code = Bili Indirect) system which generated this result tra nsmitted reference range : <=1.0. The reference r louis was not used to int erpret this result as normal/abnormal . [facility]2017-03-31 23:11:00 Test Item Value Reference Range Interpretation Comments Bili Direct (test code 0.2 See_Comment [Aut omated message] The = Bili Direct) system which generated this result tra nsmitted reference range : <=0.3. The reference r louis was not used to int erpret this result as sonido l/abnormal. [facility]2017-03-31 23:11:00 Test Item Value Reference Range Interpretation Comments Bili Total (test code = Bili Total) 0.6 0.2-1.3 [facility] [facility]2017-03-31 23:11:00 Test Item Value Reference Range Interpretation Comments Alk Phos (test code = Alk Phos) 38 39-136 [place] [address]-03-31 23:11:00 Test Item Value Reference Range Interpretation Comments AST (test code = AST) 42 See_Comment [Auto mated message] The system which ge nerated this result transmit jigar reference range : <=37. The reference range was not used to interpr et this result as sonido l/abnormal. [facility]2017-03-31 23:11:00 Test Item Value Reference Range Interpretation Comments ALT (test code = ALT) 51 See_Comment [Auto mated message] The system which ge nerated this result transmit jigar reference range : <=65. The reference range was not used to interpr et this result as sonido l/abnormal. [facility]2017-03-31 23:11:00 Test Item Value Reference Range Interpretation Comments Albumin Lvl (test code = Albumin Lvl) 2.9 3.5-5.0 [facility]2017-03-31 23:11:00 Test Item Value Reference Range Interpretation Comments Total Protein (test code = Total 5.0 6.4-8.4 Protein) [facility]2017-03-31 23:11:00 Test Item Value Reference Range Interpretation Comments Phosphorus (test code = Phosphorus) 2.3 2.5-4.5 [id number] 23:11:00 Test Item Value Reference Range Interpretation Comments FSP (test code = FSP) <5 ug/ml [facility]lakeIdxftpxTKIWFJDXUH8072-17-61 23:11:00 Test Item Value Reference Range Interpretation Comments Fibrinogen Lvl (test code = Fibrinogen 206 230-510 Lvl) [facility] SouthlakeDueweiiMBOKQETPML6945-17-60 23:11:00 Test Item Value Reference Range Interpretation Comments PTT (test code = PTT) 34.9 s 22.9-35.8 [facility]lakeTjehuekBWRFRFSUSS2477-45-66 23:11:00 Test Item Value Reference Range Interpretation Comments INR (test code = INR) 1.27 0.85-1.17 [facility] Southla[id number] 23:11:00 Test Item Value Reference Range Interpretation Comments PT (test code = PT) 16.2 s 12.0-14.7 [facility] [id number] 23:11:00 Test Item Value Reference Range Interpretation Comments Ca Norm WB (test code = Ca Norm WB) 1.09 1.05-1.25 [facility]2017-03-31 23:11:00 Test Item Value Reference Range Interpretation Comments Ca Ion WB (test code = Ca Ion WB) 1.10 1.05-1.25 [facility]2017-03-31 23:11:00 Test Item Value Reference Range Interpretation Comments A/G Ratio (test code = A/G Ratio) 1.4 0.7-1.6 [place] 562027-03-31 23:11:00 Test Item Value Reference Range Interpretation Comments Globulin (test code = Globulin) 2.1 2.7-4.2 [place] 562027-03-31 23:11:00 Test Item Value Reference Range Interpretation Comments Bili Indirect (test 0.4 See_Comment [Automa jigar message] The code = Bili Indirect) system which generated this result tra nsmitted reference range : <=1.0. The reference r lou[place] was not used to int erpret this result as normal/abnormal . [place] [address]-03-31 23:11:00 Test Item Value Reference Range Interpretation Comments Bili Direct (test code 0.2 See_Comment [Aut omated message] The = Bili Direct) system which generated this result tra nsmitted reference range : <=0.3. The reference r lou[place] was not used to int erpret this result as sonido l/abnormal. [place] 562027-03-31 23:11:00 Test Item Value Reference Range Interpretation Comments Bili Total (test code = Bili Total) 0.6 0.2-1.3 [place] 562027-03-31 23:11:00 Test Item Value Reference Range Interpretation Comments Alk Phos (test code = Alk Phos) 38 39-136 [place] 562027-03-31 23:11:00 Test Item Value Reference Range Interpretation Comments AST (test code = AST) 42 See_Comment [Auto mated message] The system which ge nerated this result transmit jigar reference range : <=37. The reference range was not used to interpr et this result as sonido l/abnormal. [place] 562027-03-31 23:11:00 Test Item Value Reference Range Interpretation Comments ALT (test code = ALT) 51 See_Comment [Auto mated message] The system which ge nerated this result transmit jigar reference range : <=65. The reference range was not used to interpr et this result as sonido l/abnormal. [place] [address]-03-31 23:11:00 Test Item Value Reference Range Interpretation Comments Albumin Lvl (test code = Albumin Lvl) 2.9 3.5-5.0 [place] 562027-03-31 23:11:00 Test Item Value Reference Range Interpretation Comments Total Protein (test code = Total 5.0 6.4-8.4 Protein) [facility]2017-03-31 23:11:00 Test Item Value Reference Range Interpretation Comments Phosphorus (test code = Phosphorus) 2.3 2.5-4.5 [facility] Southla[id number] 23:11:00 Test Item Value Reference Range Interpretation Comments FSP (test code = FSP) <5 ug/ml [facility] SouthlakeZjdexxlGNWVLXUASV5488-42-30 23:11:00 Test Item Value Reference Range Interpretation Comments Fibrinogen Lvl (test code = Fibrinogen 206 230-510 Lvl) [facility] SouthlakeBqvztnlJOAVTBLAZR8724-29-48 23:11:00 Test Item Value Reference Range Interpretation Comments PTT (test code = PTT) 34.9 s 22.9-35.8 [facility] SouthlakeUtpbjxpXFGVEVSCGJ3898-49-68 23:11:00 Test Item Value Reference Range Interpretation Comments INR (test code = INR) 1.27 0.85-1.17 [facility] SouthlakeBzmlifjPHVRRWQEAP8164-60-36 23:11:00 Test Item Value Reference Range Interpretation Comments PT (test code = PT) 16.2 s 12.0-14.7 [facility]PARATHYROID SKAORJD2301-33-31 23:11:00 Test Item Value Reference Range Interpretation Comments Ca Norm WB (test code = Ca Norm WB) 1.09 1.05-1.25 [facility]2017-03-31 23:11:00 Test Item Value Reference Range Interpretation Comments Ca Ion WB (test code = Ca Ion WB) 1.10 1.05-1.25 [facility]2017-03-31 23:11:00 Test Item Value Reference Range Interpretation Comments A/G Ratio (test code = A/G Ratio) 1.4 0.7-1.6 [facility]2017-03-31 23:11:00 Test Item Value Reference Range Interpretation Comments Globulin (test code = Globulin) 2.1 2.7-4.2 [facility]2017-03-31 23:11:00 Test Item Value Reference Range Interpretation Comments Bili Indirect (test 0.4 See_Comment [Automa jigar message] The code = Bili Indirect) system which generated this result tra nsmitted reference range : <=1.0. The reference r [place] was not used to int erpret this result as normal/abnormal . [facility]Creation TechnologiesCRITICAL ACCESS [id number] 23:11:00 Test Item Value Reference Range Interpretation Comments Bili Direct (test code 0.2 See_Comment [Aut omated message] The = Bili Direct) system which generated this result tra nsmitted reference range : <=0.3. The reference r lou[place] was not used to int erpret this result as sonido l/abnormal. [facility]2017-03-31 23:11:00 Test Item Value Reference Range Interpretation Comments Bili Total (test code = Bili Total) 0.6 0.2-1.3 [facility]2017-03-31 23:11:00 Test Item Value Reference Range Interpretation Comments Alk Phos (test code = Alk Phos) 38 39-136 [facility] HospitalCreation TechnologiesCRITICAL ACCESS HOSPITALWCWFD7874-60-36 23:11:00 Test Item Value Reference Range Interpretation Comments AST (test code = AST) 42 See_Comment [Auto mated message] The system which ge nerated this result transmit jigar reference range : <=37. The reference range was not used to interpr et this result as sonido l/abnormal. [facility] HospitalCreation TechnologiesCRITICAL ACCESS HOSPITALHTOTL3955-28-74 23:11:00 Test Item Value Reference Range Interpretation Comments ALT (test code = ALT) 51 See_Comment [Auto mated message] The system which ge nerated this result transmit jigar reference range : <=65. The reference range was not used to interpr et this result as sonido l/abnormal. [facility] HospitalCreation TechnologiesCRITICAL ACCESS HOSPITALIKRVI2678-11-62 23:11:00 Test Item Value Reference Range Interpretation Comments Albumin Lvl (test code = Albumin Lvl) 2.9 3.5-5.0 [facility] HospitalCreation TechnologiesCRITICAL ACCESS HOSPITALXVMHP7968-79-06 23:11:00 Test Item Value Reference Range Interpretation Comments Total Protein (test code = Total 5.0 6.4-8.4 Protein) [facility]2017-03-31 23:11:00 Test Item Value Reference Range Interpretation Comments Phosphorus (test code = Phosphorus) 2.3 2.5-4.5 [facility] HospitalIvivyzqQSTMRHKGKU1058-90-88 23:11:00 Test Item Value Reference Range Interpretation Comments FSP (test code = FSP) <5 ug/ml [facility] SouthlakeSipuxinLIISJLWJRP8832-11-42 23:11:00 Test Item Value Reference Range Interpretation Comments Fibrinogen Lvl (test code = Fibrinogen 206 230-510 Lvl) [facility] SouthlakeEstulbcEHVKJAWKSO6836-74-87 23:11:00 Test Item Value Reference Range Interpretation Comments PTT (test code = PTT) 34.9 s 22.9-35.8 [facility] SouthlakeKckllteKZBSPKTBED2659-88-61 23:11:00 Test Item Value Reference Range Interpretation Comments INR (test code = INR) 1.27 0.85-1.17 [facility] SouthlakeJjvvqoxRUFEBRBPIJ0162-14-73 23:11:00 Test Item Value Reference Range Interpretation Comments PT (test code = PT) 16.2 s 12.0-14.7 [facility]2017-03-31 23:11:00 Test Item Value Reference Range Interpretation Comments Ca Norm WB (test code = Ca Norm WB) 1.09 1.05-1.25 [facility]2017-03-31 23:11:00 Test Item Value Reference Range Interpretation Comments Ca Ion WB (test code = Ca Ion WB) 1.10 1.05-1.25 [facility] SouthlakeTvkmaevEYZCCLMQSB2781-62-76 22:13:00 Test Item Value Reference Range Interpretation Comments Fibrinogen Lvl (test code = Fibrinogen 196 230-510 Lvl) [facility] SouthlakeMmlkjuwELXADQJBSX3422-12-43 22:13:00 Test Item Value Reference Range Interpretation Comments PTT (test code = PTT) 32.8 s 22.9-35.8 [facility] SouthlakePpxmaicQHIORIPPDD1357-92-43 22:13:00 Test Item Value Reference Range Interpretation Comments PT (test code = PT) 16.6 s 12.0-14.7 [facility] SouthlakeCnndllrLFZLZSZAOH4572-74-98 22:13:00 Test Item Value Reference Range Interpretation Comments INR (test code = INR) 1.32 0.85-1.17 [facility] SouthlakeAzeoqjuKECTZEDWCT8555-49-57 22:13:00 Test Item Value Reference Range Interpretation Comments Fibrinogen Lvl (test code = Fibrinogen 196 230-510 Lvl) [facility] SouthlakeCwdmrjsQDCWMAPIYW8239-28-40 22:13:00 Test Item Value Reference Range Interpretation Comments PTT (test code = PTT) 32.8 s 22.9-35.8 [facility] SouthlakeWtartmxKLXMYQWLAQ9961-76-50 22:13:00 Test Item Value Reference Range Interpretation Comments PT (test code = PT) 16.6 s 12.0-14.7 [facility] SouthlakeHtmdwxkJUHYDKYYSN5343-44-30 22:13:00 Test Item Value Reference Range Interpretation Comments INR (test code = INR) 1.32 0.85-1.17 [facility] SouthlakeUqugxjgIEXOEUALLO5296-24-12 22:13:00 Test Item Value Reference Range Interpretation Comments Fibrinogen Lvl (test code = Fibrinogen 196 230-510 Lvl) [facility] SouthlakeKpjhmmyLPMSUGDESD2870-80-05 22:13:00 Test Item Value Reference Range Interpretation Comments PTT (test code = PTT) 32.8 s 22.9-35.8 [facility] SouthlakeNlhpeoeDYSHEMQOFH8374-05-67 22:13:00 Test Item Value Reference Range Interpretation Comments PT (test code = PT) 16.6 s 12.0-14.7 [facility] SouthlakeIambmfgCKQWDJFJSK0370-28-54 22:13:00 Test Item Value Reference Range Interpretation Comments INR (test code = INR) 1.32 0.85-1.17 [facility] [id number] 09:15:00 Test Item Value Reference Range Interpretation Comments Antibody Scrn (test Negative (06/24/16 4:15 code = Antibody Scrn) AM) [facility] [id number] 09:15:00 Test Item Value Reference Range Interpretation Comments ABO/Rh (test code = ABO/Rh) A POS [facility] [id number] 09:15:00 Test Item Value Reference Range Interpretation Comments Antibody Scrn (test Negative (06/24/16 4:15 code = Antibody Scrn) AM) [facility] [id number] 09:15:00 Test Item Value Reference Range Interpretation Comments ABO/Rh (test code = ABO/Rh) A POS [facility] [employer] [id number] 09:15:00 Test Item Value Reference Range Interpretation Comments Antibody Scrn (test Negative (06/24/16 4:15 code = Antibody Scrn) AM) [facility] [id number] 09:15:00 Test Item Value Reference Range Interpretation Comments ABO/Rh (test code = ABO/Rh) A POS [facility] [employer] [id number] 09:00:00 Test Item Value Reference Range Interpretation Comments Platelet product (test Product available code = Platelet (06/24/16 4:00 AM) product) [facility] [id number] 09:00:00 Test Item Value Reference Range Interpretation Comments FFP product (test code Product available = FFP product) (06/24/16 4:00 AM) [facility] [id number] 09:00:00 Test Item Value Reference Range Interpretation Comments Cryo product (test Product available code = Cryo product) (06/24/16 4:00 AM) [facility] [id number] 09:00:00 Test Item Value Reference Range Interpretation Comments RBC product (test code Product available = RBC product) (06/24/16 4:00 AM) [facility] [id number] 09:00:00 Test Item Value Reference Range Interpretation Comments Platelet product (test Product available code = Platelet (06/24/16 4:00 AM) product) [facility] [id number] 09:00:00 Test Item Value Reference Range Interpretation Comments FFP product (test code Product available = FFP product) (06/24/16 4:00 AM) [facility] [id number] 09:00:00 Test Item Value Reference Range Interpretation Comments Cryo product (test Product available code = Cryo product) (06/24/16 4:00 AM) [facility] [id number] 09:00:00 Test Item Value Reference Range Interpretation Comments RBC product (test code Product available = RBC product) (06/24/16 4:00 AM) [facility] [id number] 09:00:00 Test Item Value Reference Range Interpretation Comments Platelet product (test Product available code = Platelet (06/24/16 4:00 AM) product) [facility] [id number] 09:00:00 Test Item Value Reference Range Interpretation Comments FFP product (test code Product available = FFP product) (06/24/16 4:00 AM) [facility] [id number] 09:00:00 Test Item Value Reference Range Interpretation Comments Cryo product (test Product available code = Cryo product) (06/24/16 4:00 AM) [facility] [id number] 09:00:00 Test Item Value Reference Range Interpretation Comments RBC product (test code Product available = RBC product) (06/24/16 4:00 AM) [id number] 10:18:00 Test Item Value Reference Range Interpretation Comments INR (test code = INR) 1.05 0.85-1.17 [facility] So[id number] 10:18:00 Test Item Value Reference Range Interpretation Comments PTT (test code = PTT) 37.0 s 22.9-35.8 [facility] SouthlakeUwywpkrQDFPFVXDAI6560-20-49 10:18:00 Test Item Value Reference Range Interpretation Comments PT (test code = PT) 13.9 s 12.0-14.7 [facility] Southla[id number] 10:18:00 Test Item Value Reference Range Interpretation Comments INR (test code = INR) 1.05 0.85-1.17 [facility] SouthlakeB[id number] 10:18:00 Test Item Value Reference Range Interpretation Comments PTT (test code = PTT) 37.0 s 22.9-35.8 [facility] Sout[id number] 10:18:00 Test Item Value Reference Range Interpretation Comments PT (test code = PT) 13.9 s 12.0-14.7 [facility] SouthlakeWsejtgvPFYYTEILHB9232-74-38 10:18:00 Test Item Value Reference Range Interpretation Comments INR (test code = INR) 1.05 0.85-1.17 [facility] Southla[id number] 10:18:00 Test Item Value Reference Range Interpretation Comments PTT (test code = PTT) 37.0 s 22.9-35.8 [facility] SouthlakeWyuorfwFXBZDIJXWL4156-87-13 10:18:00 Test Item Value Reference Range Interpretation Comments PT (test code = PT) 13.9 s 12.0-14.7 [facility] [id number] 10:18:00 Test Item Value Reference Range Interpretation Comments ABO/Rh (test code = ABO/Rh) A POS [facility] [employer] [id number] 10:18:00 Test Item Value Reference Range Interpretation Comments Antibody Scrn (test Negative (3/27/17 5:18 code = Antibody Scrn) AM) [facility] Sout[id number] 10:18:00 Test Item Value Reference Range Interpretation Comments Plt Morph (test code = Normal (06/20/16 5:18 Plt Morph) AM) [facility] Southla[id number] 10:18:00 Test Item Value Reference Range Interpretation Comments RBC Morph (test code = Normal (06/20/16 5:18 RBC Morph) AM) [facility] [id number] 10:18:00 Test Item Value Reference Range Interpretation Comments HCV RNA Log10 (test code = HCV RNA 6.9 Log10) [facility]2017-03-27 10:18:00 Test Item Value Reference Range Interpretation Comments HCV RNA VirLoad (test code = HCV RNA 8889154 VirLoad) [facility] [id number] 10:18:00 Test Item Value Reference Range Interpretation Comments ABO/Rh (test code = ABO/Rh) [facility] [id number] 10:18:00 Test Item Value Reference Range Interpretation Comments Antibody Scrn (test Negative (06/20/16 5:18 code = Antibody Scrn) AM) [facility]la[id number] 10:18:00 Test Item Value Reference Range Interpretation Comments Plt Morph (test code = Normal (06/20/16 5:18 Plt Morph) AM) [facility] SouthlakeJfvzbboUFSVWNXPEK1575-41-11 10:18:00 Test Item Value Reference Range Interpretation Comments RBC Morph (test code = Normal (06/20/16 5:18 RBC Morph) AM) [facility] [id number] 10:18:00 Test Item Value Reference Range Interpretation Comments HCV RNA Log10 (test code = HCV RNA 6.9 Log10) [facility]2017-03-27 10:18:00 Test Item Value Reference Range Interpretation Comments HCV RNA VirLoad (test code = HCV RNA [id number] VirLoad) [facility] [id number] 10:18:00 Test Item Value Reference Range Interpretation Comments ABO/Rh (test code = ABO/Rh) A POS [facility] [id number] 10:18:00 Test Item Value Reference Range Interpretation Comments Antibody Scrn (test Negative (06/20/16 5:18 code = Antibody Scrn) AM) [id number] 10:18:00 Test Item Value Reference Range Interpretation Comments Plt Morph (test code = Normal (06/20/16 5:18 Plt Morph) AM) [facility]IMTWPETEIF6309-89-04 10:18:00 Test Item Value Reference Range Interpretation Comments RBC Morph (test code = Normal (06/20/16 5:18 RBC Morph) AM) [facility] [id number] 10:18:00 Test Item Value Reference Range Interpretation Comments HCV RNA Log10 (test code = HCV RNA 6.9 Log10) [facility]2017-03-27 10:18:00 Test Item Value Reference Range Interpretation Comments HCV RNA VirLoad (test code = HCV RNA [id number] VirLoad) [facility] [id number] 10:00:00 Test Item Value Reference Range Interpretation Comments FFP product (test code Product available = FFP product) (06/20/16 5:00 AM) [facility] [id number] 10:00:00 Test Item Value Reference Range Interpretation Comments Cryo product (test Product available code = Cryo product) (06/20/16 5:00 AM) [facility] [id number] 10:00:00 Test Item Value Reference Range Interpretation Comments RBC product (test code Product available = RBC product) (06/20/16 5:00 AM) [facility] [id number] 10:00:00 Test Item Value Reference Range Interpretation Comments Platelet product (test Product available code = Platelet (06/20/16 5:00 AM) product) [facility] [id number] 10:00:00 Test Item Value Reference Range Interpretation Comments FFP product (test code Product available = FFP product) (06/20/16 5:00 AM) [facility] [id number] 10:00:00 Test Item Value Reference Range Interpretation Comments Cryo product (test Product available code = Cryo product) (06/20/16 5:00 AM) [facility] [id number] 10:00:00 Test Item Value Reference Range Interpretation Comments RBC product (test code Product available = RBC product) (06/20/16 5:00 AM) [facility] [id number] 10:00:00 Test Item Value Reference Range Interpretation Comments Platelet product (test Product available code = Platelet (06/20/16 5:00 AM) product) [facility] BANK [id number] 10:00:00 Test Item Value Reference Range Interpretation Comments FFP product (test code Product available = FFP product) (06/20/16 5:00 AM) [facility] BANK [id number] 10:00:00 Test Item Value Reference Range Interpretation Comments Cryo product (test Product available code = Cryo product) (06/20/16 5:00 AM) [facility] [id number] 10:00:00 Test Item Value Reference Range Interpretation Comments RBC product (test code Product available = RBC product) (06/20/16 5:00 AM) [facility] [id number] 10:00:00 Test Item Value Reference Range Interpretation Comments Platelet product (test Product available code = Platelet (06/20/16 5:00 AM) product) [facility] [id number] 10:33:00 Test Item Value Reference Range Interpretation Comments MRSA by PCR (test Negative (06/18/16 5:33 code = MRSA by PCR) AM) [facility] [employer] [id number] 10:33:00 Test Item Value Reference Range Interpretation Comments B/C Ratio (test code = B/C Ratio) 18 6-25 [facility] [employer] [id number] 10:33:00 Test Item Value Reference Range Interpretation Comments Globulin (test code = Globulin) 3.9 2.7-4.2 [facility] [employer] [id number] 10:33:00 Test Item Value Reference Range Interpretation Comments A/G Ratio (test code = A/G Ratio) 0.8 0.7-1.6 [facility] [employer] [id number] 10:33:00 Test Item Value Reference Range Interpretation Comments ALT (test code = ALT) 67 See_Comment [Auto mated message] The system which ge nerated this result transmit jigar reference range : <=65. The reference range was not used to interpr et this result as sonido l/abnormal. [facility] [id number] 10:33:00 Test Item Value Reference Range Interpretation Comments AST (test code = AST) 74 See_Comment [Auto mated message] The system which ge nerated this result transmit jigar reference range : <=37. The reference range was not used to interpr et this result as sonido l/abnormal. [facility] [id number] 10:33:00 Test Item Value Reference Range Interpretation Comments Total Protein (test code = Total 7.1 6.4-8.4 Protein) [facility] [id number] 10:33:00 Test Item Value Reference Range Interpretation Comments Albumin Lvl (test code = Albumin Lvl) 3.2 3.5-5.0 [facility]2017-03-25 10:33:00 Test Item Value Reference Range Interpretation Comments Alk Phos (test code = Alk Phos) 58 39-136 [facility] [id number] 10:33:00 Test Item Value Reference Range Interpretation Comments Bili Total (test code = Bili Total) 0.4 0.2-1.3 [facility] [id number] 10:33:00 Test Item Value Reference Range Interpretation Comments CHD Risk (test code = CHD Risk) 4.04 4.00-7.30 [facility] [id number] 10:33:00 Test Item Value Reference Range Interpretation Comments VLDL (test code = VLDL) 16 [facility] [id number] 10:33:00 Test Item Value Reference Range Interpretation Comments LDL (Calculated) (test code = LDL 121 (Calculated)) [facility] [id number] 10:33:00 Test Item Value Reference Range Interpretation Comments HDL (test code = HDL) 45 [facility] [id number] 10:33:00 Test Item Value Reference Range Interpretation Comments Trig (test code = Trig) 82 [facility] [id number] 10:33:00 Test Item Value Reference Range Interpretation Comments Chol (test code = Chol) 182 [facility] [id number] 10:33:00 Test Item Value Reference Range Interpretation Comments Hgb A1C (test code = Hgb A1C) 6.4 [facility] [id number] 10:33:00 Test Item Value Reference Range Interpretation Comments UA Urobilinogen (test code = UA no gt 0.1-1.0 Urobilinogen) [facility] AND [id number] 10:33:00 Test Item Value Reference Range Interpretation Comments UA Sq Epi (test code = UA Sq Epi) None Seen [facility] AND [id number] 10:33:00 Test Item Value Reference Range Interpretation Comments UA RBC (test code = no gt See_Comment [Automa jigar message] The UA RBC) system which ge nerated this result transmit jigar reference range : <=2. The reference range was not used to interpr et this result as sonido l/abnormal. [facility] AND [id number] 10:33:00 Test Item Value Reference Range Interpretation Comments UA Bili (test code = Negative *NA*(06/18/16 UA Bili) 5:33 AM) [facility] AND [id number] 10:33:00 Test Item Value Reference Range Interpretation Comments UA Ketones (test code = UA Negative mg/dL Ketones) [facility] AND [id number] 10:33:00 Test Item Value Reference Range Interpretation Comments UA Glucose (test code = UA Negative mg/dL Glucose) [facility] AND [id number] 10:33:00 Test Item Value Reference Range Interpretation Comments UA WBC (test code = no gt See_Comment [Automa jigar message] The UA WBC) system which ge nerated this result transmit jigar reference range : <=5. The reference range was not used to interpr et this result as sonido l/abnormal. [facility] AND [id number] 10:33:00 Test Item Value Reference Range Interpretation Comments UA Leuk Est (test Negative (06/18/16 5:33 code = UA Leuk Est) AM) [facility] AND [id number] 10:33:00 Test Item Value Reference Range Interpretation Comments UA Nitrite (test code Negative (06/18/16 5:33 = UA Nitrite) AM) [facility] AND [id number] 10:33:00 Test Item Value Reference Range Interpretation Comments UA Blood (test code = Negative (06/18/16 5:33 UA Blood) AM) [facility] AND [id number] 10:33:00 Test Item Value Reference Range Interpretation Comments UA Protein (test code = UA Negative mg/dL Protein) [facility] AND [id number] 10:33:00 Test Item Value Reference Range Interpretation Comments UA Color (test code = Light Yellow UA Color) *NA*(06/18/16 5:33 AM) [facility] AND [id number] 10:33:00 Test Item Value Reference Range Interpretation Comments UA Turbidity (test code = Clear (06/18/16 5:33 UA Turbidity) AM) [facility] AND [id number] 10:33:00 Test Item Value Reference Range Interpretation Comments UA pH (test code = UA pH) 5.0 5.0-8.0 [facility] AND [id number] 10:33:00 Test Item Value Reference Range Interpretation Comments UA Spec Grav (test code = UA Spec Grav) 1.008 [facility] HospitalBACT[facility] - [id number] 10:33:00 Test Item Value Reference Range Interpretation Comments MRSA by PCR (test Negative (06/18/16 5:33 code = MRSA by PCR) AM) [facility] [id number] 10:33:00 Test Item Value Reference Range Interpretation Comments B/C Ratio (test code = B/C Ratio) 18 6-25 [facility] [id number] 10:33:00 Test Item Value Reference Range Interpretation Comments Globulin (test code = Globulin) 3.9 2.7-4.2 [facility] [id number] 10:33:00 Test Item Value Reference Range Interpretation Comments A/G Ratio (test code = A/G Ratio) 0.8 0.7-1.6 [facility] [id number] 10:33:00 Test Item Value Reference Range Interpretation Comments ALT (test code = ALT) 67 See_Comment [Auto mated message] The system which ge nerated this result transmit jigar reference range : <=65. The reference range was not used to interpr et this result as sonido l/abnormal. [facility] [id number] 10:33:00 Test Item Value Reference Range Interpretation Comments AST (test code = AST) 74 See_Comment [Auto mated message] The system which ge nerated this result transmit jigar reference range : <=37. The reference range was not used to interpr et this result as sonido l/abnormal. [facility] [id number] 10:33:00 Test Item Value Reference Range Interpretation Comments Total Protein (test code = Total 7.1 6.4-8.4 Protein) [facility] [id number] 10:33:00 Test Item Value Reference Range Interpretation Comments Albumin Lvl (test code = Albumin Lvl) 3.2 3.5-5.0 [facility] [id number] 10:33:00 Test Item Value Reference Range Interpretation Comments Alk Phos (test code = Alk Phos) 58 39-136 [facility] [id number] 10:33:00 Test Item Value Reference Range Interpretation Comments Bili Total (test code = Bili Total) 0.4 0.2-1.3 [facility] [id number] 10:33:00 Test Item Value Reference Range Interpretation Comments CHD Risk (test code = CHD Risk) 4.04 4.00-7.30 [facility] [id number] 10:33:00 Test Item Value Reference Range Interpretation Comments VLDL (test code = VLDL) 16 [facility] [id number] 10:33:00 Test Item Value Reference Range Interpretation Comments LDL (Calculated) (test code = LDL 121 (Calculated)) [facility] Ho[id number] 10:33:00 Test Item Value Reference Range Interpretation Comments HDL (test code = HDL) 45 [facility] [id number] 10:33:00 Test Item Value Reference Range Interpretation Comments Trig (test code = Trig) 82 [facility] [id number] 10:33:00 Test Item Value Reference Range Interpretation Comments Chol (test code = Chol) 182 [facility] [id number] 10:33:00 Test Item Value Reference Range Interpretation Comments Hgb A1C (test code = Hgb A1C) 6.4 [facility] [id number] 10:33:00 Test Item Value Reference Range Interpretation Comments UA Urobilinogen (test code = UA no gt 0.1-1.0 Urobilinogen) [facility] [id number] 10:33:00 Test Item Value Reference Range Interpretation Comments UA Sq Epi (test code = UA Sq Epi) None Seen [facility] AND [id number] 10:33:00 Test Item Value Reference Range Interpretation Comments UA RBC (test code = no gt See_Comment [Automa jigar message] The UA RBC) system which ge nerated this result transmit jigar reference range : <=2. The reference range was not used to interpr et this result as sonido l/abnormal. [facility] AND [id number] 10:33:00 Test Item Value Reference Range Interpretation Comments UA Bili (test code = Negative *NA*(06/18/16 UA Bili) 5:33 AM) [facility] AND [id number] 10:33:00 Test Item Value Reference Range Interpretation Comments UA Ketones (test code = UA Negative mg/dL Ketones) [facility] AND [id number] 10:33:00 Test Item Value Reference Range Interpretation Comments UA Glucose (test code = UA Negative mg/dL Glucose) [facility] AND [id number] 10:33:00 Test Item Value Reference Range Interpretation Comments UA WBC (test code = no gt See_Comment [Automa jigar message] The UA WBC) system which ge nerated this result transmit jigar reference range : <=5. The reference range was not used to interpr et this result as sonido l/abnormal. [facility] AND [id number] 10:33:00 Test Item Value Reference Range Interpretation Comments UA Leuk Est (test Negative (06/18/16 5:33 code = UA Leuk Est) AM) [facility] AND [id number] 10:33:00 Test Item Value Reference Range Interpretation Comments UA Nitrite (test code Negative (06/18/16 5:33 = UA Nitrite) AM) [facility] AND [id number] 10:33:00 Test Item Value Reference Range Interpretation Comments UA Blood (test code = Negative (06/18/16 5:33 UA Blood) AM) [facility] AND [id number] 10:33:00 Test Item Value Reference Range Interpretation Comments UA Protein (test code = UA Negative mg/dL Protein) [facility] AND [id number] 10:33:00 Test Item Value Reference Range Interpretation Comments UA Color (test code = Light Yellow UA Color) *NA*(06/18/16 5:33 AM) [facility] [id number] 10:33:00 Test Item Value Reference Range Interpretation Comments UA Turbidity (test code = Clear (06/18/16 5:33 UA Turbidity) AM) [facility] [id number] 10:33:00 Test Item Value Reference Range Interpretation Comments UA pH (test code = UA pH) 5.0 5.0-8.0 [facility] [id number] 10:33:00 Test Item Value Reference Range Interpretation Comments UA Spec Grav (test code = UA Spec Grav) 1.008 [facility]BA[facility] - [id number] 10:33:00 Test Item Value Reference Range Interpretation Comments MRSA by PCR (test Negative (06/18/16 5:33 code = MRSA by PCR) AM) [facility] [id number] 10:33:00 Test Item Value Reference Range Interpretation Comments B/C Ratio (test code = B/C Ratio) 18 6-25 [facility] [id number] 10:33:00 Test Item Value Reference Range Interpretation Comments Globulin (test code = Globulin) 3.9 2.7-4.2 [facility] [id number] 10:33:00 Test Item Value Reference Range Interpretation Comments A/G Ratio (test code = A/G Ratio) 0.8 0.7-1.6 [facility] [id number] 10:33:00 Test Item Value Reference Range Interpretation Comments ALT (test code = ALT) 67 See_Comment [Auto mated message] The system which ge nerated this result transmit jigar reference range : <=65. The reference range was not used to interpr et this result as sonido l/abnormal. [facility] [id number] 10:33:00 Test Item Value Reference Range Interpretation Comments AST (test code = AST) 74 See_Comment [Auto mated message] The system which ge nerated this result transmit jigar reference range : <=37. The reference range was not used to interpr et this result as sonido l/abnormal. [facility] [id number] 10:33:00 Test Item Value Reference Range Interpretation Comments Total Protein (test code = Total 7.1 6.4-8.4 Protein) [facility] [id number] 10:33:00 Test Item Value Reference Range Interpretation Comments Albumin Lvl (test code = Albumin Lvl) 3.2 3.5-5.0 [facility] [id number] 10:33:00 Test Item Value Reference Range Interpretation Comments Alk Phos (test code = Alk Phos) 58 39-136 [facility] [id number] 10:33:00 Test Item Value Reference Range Interpretation Comments Bili Total (test code = Bili Total) 0.4 0.2-1.3 [facility] [id number] 10:33:00 Test Item Value Reference Range Interpretation Comments CHD Risk (test code = CHD Risk) 4.04 4.00-7.30 [facility] [id number] 10:33:00 Test Item Value Reference Range Interpretation Comments VLDL (test code = VLDL) 16 [facility] [id number] 10:33:00 Test Item Value Reference Range Interpretation Comments LDL (Calculated) (test code = LDL 121 (Calculated)) [facility] [id number] 10:33:00 Test Item Value Reference Range Interpretation Comments HDL (test code = HDL) 45 [facility] [id number] 10:33:00 Test Item Value Reference Range Interpretation Comments Trig (test code = Trig) 82 [facility] [id number] 10:33:00 Test Item Value Reference Range Interpretation Comments Chol (test code = Chol) 182 [facility] [id number] 10:33:00 Test Item Value Reference Range Interpretation Comments Hgb A1C (test code = Hgb A1C) 6.4 [facility] [id number] 10:33:00 Test Item Value Reference Range Interpretation Comments UA Urobilinogen (test code = UA no gt 0.1-1.0 Urobilinogen) [facility] [id number] 10:33:00 Test Item Value Reference Range Interpretation Comments UA Sq Epi (test code = UA Sq Epi) None Seen [facility] AND [id number] 10:33:00 Test Item Value Reference Range Interpretation Comments UA RBC (test code = no gt See_Comment [Automa jigar message] The UA RBC) system which ge nerated this result transmit jigar reference range : <=2. The reference range was not used to interpr et this result as sonido l/abnormal. [facility] AND [id number] 10:33:00 Test Item Value Reference Range Interpretation Comments UA Bili (test code = Negative *NA*(06/18/16 UA Bili) 5:33 AM) [facility] AND [id number] 10:33:00 Test Item Value Reference Range Interpretation Comments UA Ketones (test code = UA Negative mg/dL Ketones) [facility] AND [id number] 10:33:00 Test Item Value Reference Range Interpretation Comments UA Glucose (test code = UA Negative mg/dL Glucose) [facility] AND [id number] 10:33:00 Test Item Value Reference Range Interpretation Comments UA WBC (test code = no gt See_Comment [Automa jigar message] The UA WBC) system which ge nerated this result transmit jigar reference range : <=5. The reference range was not used to interpr et this result as sonido l/abnormal. [facility] AND [id number] 10:33:00 Test Item Value Reference Range Interpretation Comments UA Leuk Est (test Negative (06/18/16 5:33 code = UA Leuk Est) AM) [facility] AND [id number] 10:33:00 Test Item Value Reference Range Interpretation Comments UA Nitrite (test code Negative (06/18/16 5:33 = UA Nitrite) AM) [facility] AND [id number] 10:33:00 Test Item Value Reference Range Interpretation Comments UA Blood (test code = Negative (06/18/16 5:33 UA Blood) AM) [facility] AND [id number] 10:33:00 Test Item Value Reference Range Interpretation Comments UA Protein (test code = UA Negative mg/dL Protein) [facility] AND [id number] 10:33:00 Test Item Value Reference Range Interpretation Comments UA Color (test code = Light Yellow UA Color) *NA*(06/18/16 5:33 AM) [facility] AND [id number] 10:33:00 Test Item Value Reference Range Interpretation Comments UA Turbidity (test code = Clear (06/18/16 5:33 UA Turbidity) AM) [facility] AND [id number] 10:33:00 Test Item Value Reference Range Interpretation Comments UA pH (test code = UA pH) 5.0 5.0-8.0 [facility] AND [id number] 10:33:00 Test Item Value Reference Range Interpretation Comments UA Spec Grav (test code = UA Spec Grav) 1.008 [facility] AND [id number] 04:28:00 Test Item Value Reference Range Interpretation Comments UA Turbidity (test code = Clear (06/17/16 11:28 UA Turbidity) PM) [facility] AND [id number] 04:28:00 Test Item Value Reference Range Interpretation Comments UA pH (test code = UA pH) 6.0 5.0-8.0 [facility] AND [id number] 04:28:00 Test Item Value Reference Range Interpretation Comments UA Color (test code = Light Yellow UA Color) *NA*(06/17/16 11:28 PM) [facility] AND [id number] 04:28:00 Test Item Value Reference Range Interpretation Comments UA Spec Grav (test code = UA Spec Grav) 1.010 [facility] AND [id number] 04:28:00 Test Item Value Reference Range Interpretation Comments UA WBC (test code = 1 See_Comment [Automa jigar message] The UA WBC) system which ge nerated this result transmit jigar reference range : <=5. The reference range was not used to interpr et this result as sonido l/abnormal. [facility] AND [id number] 04:28:00 Test Item Value Reference Range Interpretation Comments UA Bacteria (test code = UA Occasional /HPF Bacteria) [facility] AND [id number] 04:28:00 Test Item Value Reference Range Interpretation Comments UA Glucose (test code = UA Negative mg/dL Glucose) [facility] AND [id number] 04:28:00 Test Item Value Reference Range Interpretation Comments UA Protein (test code = UA Negative mg/dL Protein) [facility] AND [id number] 04:28:00 Test Item Value Reference Range Interpretation Comments UA Urobilinogen (test code = UA no gt 0.1-1.0 Urobilinogen) [facility] AND [id number] 04:28:00 Test Item Value Reference Range Interpretation Comments UA Sq Epi (test code = UA Sq Epi) None Seen [facility] AND [id number] 04:28:00 Test Item Value Reference Range Interpretation Comments UA Leuk Est (test Negative (06/17/16 11:28 code = UA Leuk Est) PM) [facility] AND [id number] 04:28:00 Test Item Value Reference Range Interpretation Comments UA Nitrite (test code Negative (06/17/16 11:28 = UA Nitrite) PM) [facility] AND [id number] 04:28:00 Test Item Value Reference Range Interpretation Comments UA Blood (test code = Negative (06/17/16 11:28 UA Blood) PM) [facility] AND [id number] 04:28:00 Test Item Value Reference Range Interpretation Comments UA Bili (test code = Negative *NA*(06/17/16 UA Bili) 11:28 PM) [facility] AND [id number] 04:28:00 Test Item Value Reference Range Interpretation Comments UA Ketones (test code = UA Negative mg/dL Ketones) [facility] AND [id number] 04:28:00 Test Item Value Reference Range Interpretation Comments UA Turbidity (test code = Clear (06/17/16 11:28 UA Turbidity) PM) [facility] AND [id number] 04:28:00 Test Item Value Reference Range Interpretation Comments UA pH (test code = UA pH) 6.0 5.0-8.0 [facility] AND [id number] 04:28:00 Test Item Value Reference Range Interpretation Comments UA Color (test code = Light Yellow UA Color) *NA*(06/17/16 11:28 PM) [facility] AND [id number] 04:28:00 Test Item Value Reference Range Interpretation Comments UA Spec Grav (test code = UA Spec Grav) 1.010 [facility] AND [id number] 04:28:00 Test Item Value Reference Range Interpretation Comments UA WBC (test code = 1 See_Comment [Automa jigar message] The UA WBC) system which ge nerated this result transmit jigar reference range : <=5. The reference range was not used to interpr et this result as sonido l/abnormal. [facility] AND [id number] 04:28:00 Test Item Value Reference Range Interpretation Comments UA Bacteria (test code = UA Occasional /HPF Bacteria) [facility] AND [id number] 04:28:00 Test Item Value Reference Range Interpretation Comments UA Glucose (test code = UA Negative mg/dL Glucose) [facility] AND [id number] 04:28:00 Test Item Value Reference Range Interpretation Comments UA Protein (test code = UA Negative mg/dL Protein) [facility] AND [id number] 04:28:00 Test Item Value Reference Range Interpretation Comments UA Urobilinogen (test code = UA no gt 0.1-1.0 Urobilinogen) [facility] AND [id number] 04:28:00 Test Item Value Reference Range Interpretation Comments UA Sq Epi (test code = UA Sq Epi) None Seen [facility] AND [id number] 04:28:00 Test Item Value Reference Range Interpretation Comments UA Leuk Est (test Negative (06/17/16 11:28 code = UA Leuk Est) PM) [facility] AND [id number] 04:28:00 Test Item Value Reference Range Interpretation Comments UA Nitrite (test code Negative (06/17/16 11:28 = UA Nitrite) PM) [facility] AND [id number] 04:28:00 Test Item Value Reference Range Interpretation Comments UA Blood (test code = Negative (06/17/16 11:28 UA Blood) PM) [facility] AND [id number] 04:28:00 Test Item Value Reference Range Interpretation Comments UA Bili (test code = Negative *NA*(06/17/16 UA Bili) 11:28 PM) [facility] AND [id number] 04:28:00 Test Item Value Reference Range Interpretation Comments UA Ketones (test code = UA Negative mg/dL Ketones) [facility] AND [id number] 04:28:00 Test Item Value Reference Range Interpretation Comments UA Turbidity (test code = Clear (06/17/16 11:28 UA Turbidity) PM) [facility] AND [id number] 04:28:00 Test Item Value Reference Range Interpretation Comments UA pH (test code = UA pH) 6.0 5.0-8.0 [facility] AND [id number] 04:28:00 Test Item Value Reference Range Interpretation Comments UA Color (test code = Light Yellow UA Color) *NA*(06/17/16 11:28 PM) [facility] AND [id number] 04:28:00 Test Item Value Reference Range Interpretation Comments UA Spec Grav (test code = UA Spec Grav) 1.010 [facility] AND [id number] 04:28:00 Test Item Value Reference Range Interpretation Comments UA WBC (test code = 1 See_Comment [Automa jigar message] The UA WBC) system which ge nerated this result transmit jigar reference range : <=5. The reference range was not used to interpr et this result as sonido l/abnormal. [facility] [facility] [id number] 04:28:00 Test Item Value Reference Range Interpretation Comments UA Bacteria (test code = UA Occasional /HPF Bacteria) [facility] AND [id number] 04:28:00 Test Item Value Reference Range Interpretation Comments UA Glucose (test code = UA Negative mg/dL Glucose) [facility] AND [id number] 04:28:00 Test Item Value Reference Range Interpretation Comments UA Protein (test code = UA Negative mg/dL Protein) [facility] AND [id number] 04:28:00 Test Item Value Reference Range Interpretation Comments UA Urobilinogen (test code = UA no gt 0.1-1.0 Urobilinogen) [facility] AND [id number] 04:28:00 Test Item Value Reference Range Interpretation Comments UA Sq Epi (test code = UA Sq Epi) None Seen [facility] AND [id number] 04:28:00 Test Item Value Reference Range Interpretation Comments UA Leuk Est (test Negative (06/17/16 11:28 code = UA Leuk Est) PM) [facility] AND [id number] 04:28:00 Test Item Value Reference Range Interpretation Comments UA Nitrite (test code Negative (06/17/16 11:28 = UA Nitrite) PM) [facility] AND [id number] 04:28:00 Test Item Value Reference Range Interpretation Comments UA Blood (test code = Negative (06/17/16 11:28 UA Blood) PM) [facility] AND [id number] 04:28:00 Test Item Value Reference Range Interpretation Comments UA Bili (test code = Negative *NA*(06/17/16 UA Bili) 11:28 PM) [facility] AND [id number] 04:28:00 Test Item Value Reference Range Interpretation Comments UA Ketones (test code = UA Negative mg/dL Ketones) [id number] 09:20:00 Test Item Value Reference Range Interpretation Comments CHD Risk (test code = CHD Risk) 4.26 4.00-7.30 [facility] [id number] 09:20:00 Test Item Value Reference Range Interpretation Comments VLDL (test code = VLDL) 22 [facility] [id number] 09:20:00 Test Item Value Reference Range Interpretation Comments LDL (Calculated) (test code = LDL 118 (Calculated)) [facility] CenterTbnjovfSOGFVM6988-05-46 09:20:00 Test Item Value Reference Range Interpretation Comments HDL (test code = HDL) 43 [facility] [id number] 09:20:00 Test Item Value Reference Range Interpretation Comments Chol (test code = Chol) 183 [facility] CenterInznkdvKZMBXI8659-20-58 09:20:00 Test Item Value Reference Range Interpretation Comments Trig (test code = Trig) 112 [facility] [id number] 09:20:00 Test Item Value Reference Range Interpretation Comments CHD Risk (test code = CHD Risk) 4.26 4.00-7.30 [facility] [id number] 09:20:00 Test Item Value Reference Range Interpretation Comments VLDL (test code = VLDL) 22 [facility] [id number] 09:20:00 Test Item Value Reference Range Interpretation Comments LDL (Calculated) (test code = LDL 118 (Calculated)) [facility] [id number] 09:20:00 Test Item Value Reference Range Interpretation Comments HDL (test code = HDL) 43 [facility] CenterDqytmvkLQNKYN9093-74-28 09:20:00 Test Item Value Reference Range Interpretation Comments Chol (test code = Chol) 183 [facility]KtkcouxFDCCVE1666-29-13 09:20:00 Test Item Value Reference Range Interpretation Comments Trig (test code = Trig) 112 [facility] HospitalYylcxwnKTXBYS6766-20-44 09:20:00 Test Item Value Reference Range Interpretation Comments CHD Risk (test code = CHD Risk) 4.26 4.00-7.30 [facility] [id number] 09:20:00 Test Item Value Reference Range Interpretation Comments VLDL (test code = VLDL) 22 [facility] [id number] 09:20:00 Test Item Value Reference Range Interpretation Comments LDL (Calculated) (test code = LDL 118 (Calculated)) [facility] [id number] 09:20:00 Test Item Value Reference Range Interpretation Comments HDL (test code = HDL) 43 [facility] [id number] 09:20:00 Test Item Value Reference Range Interpretation Comments Chol (test code = Chol) 183 [facility] [id number] 09:20:00 Test Item Value Reference Range Interpretation Comments Trig (test code = Trig) 112 [facility] [employer]AC [id number] 00:19:00 Test Item Value Reference Range Interpretation Comments Total CK (test code = Total CK) 384 12-191 [facility] Hospitalmakr [id number] 00:19:00 Test Item Value Reference Range Interpretation Comments Troponin-I (test code 7.44 See_Comment [Auto mated message] The = Troponin-I) system which g enerated this result transmit jigar reference range : <=0.40. The reference r [place] was not used to interpr et this result as sonido l/abnormal. [facility] HospitalCreation TechnologiesCARDIAC [id number] 00:19:00 Test Item Value Reference Range Interpretation Comments CK MB Index (test 4.4 See_Comment [Automate d message] The code = CK MB Index) system w [facility] generated this result transmit jigar reference range : <=2.5. The reference range was not used to interpr et this result as sonido l/abnormal. [facility] [employer] SoftwareCARDIAC [id number] 00:19:00 Test Item Value Reference Range Interpretation Comments CK MB (test code = CK MB) 17.0 0.5-3.6 [facility] HermannCARDIAC [id number] 00:19:00 Test Item Value Reference Range Interpretation Comments Total CK (test code = Total CK) 384 12-191 [facility] HospitalannCARDIAC [id number] 00:19:00 Test Item Value Reference Range Interpretation Comments Troponin-I (test code 7.44 See_Comment [Auto mated message] The = Troponin-I) system which g enerated this result transmit jigar reference range : <=0.40. The reference r [place] was not used to interpr et this result as sonido l/abnormal. [facility] ArmutannCARDIAC [id number] 00:19:00 Test Item Value Reference Range Interpretation Comments CK MB Index (test 4.4 See_Comment [Automate d message] The code = CK MB Index) system w [employer] generated this result transmit jigar reference range : <=2.5. The reference range was not used to interpr et this result as sonido l/abnormal. [facility] [employer] SoftwareCARDIAC [id number] 00:19:00 Test Item Value Reference Range Interpretation Comments CK MB (test code = CK MB) 17.0 0.5-3.6 [facility] ArmutannCARDIAC [id number] 00:19:00 Test Item Value Reference Range Interpretation Comments Total CK (test code = Total CK) 384 12-191 [facility] HospitalXifra BusinessAC [id number] 00:19:00 Test Item Value Reference Range Interpretation Comments Troponin-I (test code 7.44 See_Comment [Auto mated message] The = Troponin-I) system which g enerated this result transmit jigar reference range : <=0.40. The reference r [place] was not used to interpr et this result as sonido l/abnormal. [facility] ArmutannCARDIAC [id number] 00:19:00 Test Item Value Reference Range Interpretation Comments CK MB Index (test 4.4 See_Comment [Automate d message] The code = CK MB Index) system w [employer] generated this result transmit jigar reference range : <=2.5. The reference range was not used to interpr et this result as sonido l/abnormal. [facility] ArmutannCARDIAC [id number] 00:19:00 Test Item Value Reference Range Interpretation Comments CK MB (test code = CK MB) 17.0 0.5-3.6 [facility] ArmutannCARDIAC [id number] 19:58:00 Test Item Value Reference Range Interpretation Comments CK MB Index (test 4.8 See_Comment [Automate d message] The code = CK MB Index) system [employer] generated this result transmit jigar reference range : <=2.5. The reference range was not used to interpr et this result as sonido l/abnormal. [employer] SystemsAC [id number] 19:58:00 Test Item Value Reference Range Interpretation Comments Total CK (test code = Total CK) 412 [facility] [employer] [id number] 19:58:00 Test Item Value Reference Range Interpretation Comments CK MB (test code = CK MB) 19.8 0.5-3.6 [facility] ArmutannCARLibra AllianceAC [id number] 19:58:00 Test Item Value Reference Range Interpretation Comments CK MB Index (test 4.8 See_Comment [Automate d message] The code = CK MB Index) system [employer] generated this result transmit jigar reference range : <=2.5. The reference range was not used to interpr et this result as sonido l/abnormal. [facility] [employer]2017-03-22 19:58:00 Test Item Value Reference Range Interpretation Comments Total CK (test code = Total CK) 412 [facility] [employer] [id number] 19:58:00 Test Item Value Reference Range Interpretation Comments CK MB (test code = CK MB) 19.8 0.5-3.6 [facility] [employer] [id number] 19:58:00 Test Item Value Reference Range Interpretation Comments CK MB Index (test 4.8 See_Comment [Automate d message] The code = CK MB Index) system [employer] generated this result transmit jigar reference range : <=2.5. The reference range was not used to interpr et this result as sonido l/abnormal. [employer]AC [id number] 19:58:00 Test Item Value Reference Range Interpretation Comments Total CK (test code = Total CK) 412 [facility] [employer] [id number] 19:58:00 Test Item Value Reference Range Interpretation Comments CK MB (test code = CK MB) 19.8 0.5-3.6 [facility] AND [id number] 19:56:00 Test Item Value Reference Range Interpretation Comments UA pH (test code = UA pH) 5.5 1 5.0-8.0 [facility] AND [id number] 19:56:00 Test Item Value Reference Range Interpretation Comments UA Spec Grav (test code = UA Spec 1.020 1 Grav) [facility] AND [id number] 19:56:00 Test Item Value Reference Range Interpretation Comments UA Protein (test code Negative (06/15/16 2:56 = UA Protein) PM) [facility] AND [id number] 19:56:00 Test Item Value Reference Range Interpretation Comments UA Turbidity (test code = Clear (06/15/16 2:56 UA Turbidity) PM) [facility] AND [id number] 19:56:00 Test Item Value Reference Range Interpretation Comments UA Leuk Est (test Negative (06/15/16 2:56 code = UA Leuk Est) PM) [facility] AND [id number] 19:56:00 Test Item Value Reference Range Interpretation Comments Micro? (test code = Not Indicated (06/15/16 Micro?) 2:56 PM) [facility] AND [id number] 19:56:00 Test Item Value Reference Range Interpretation Comments UA Glucose (test code Negative (06/15/16 2:56 = UA Glucose) PM) [facility] AND [id number] 19:56:00 Test Item Value Reference Range Interpretation Comments UA Bili (test code = Negative *NA*(06/15/16 UA Bili) 2:56 PM) [facility] AND [id number] 19:56:00 Test Item Value Reference Range Interpretation Comments UA Ketones (test code Negative *NA*(06/15/16 = UA Ketones) 2:56 PM) [facility] [id number] 19:56:00 Test Item Value Reference Range Interpretation Comments UA Blood (test code = Negative (06/15/16 2:56 UA Blood) PM) [facility] [id number] 19:56:00 Test Item Value Reference Range Interpretation Comments UA Nitrite (test code Negative (06/15/16 2:56 = UA Nitrite) PM) [facility] [id number] 19:56:00 Test Item Value Reference Range Interpretation Comments UA Urobilinogen (test code = UA 0.2 0.1-1.0 Urobilinogen) [facility] [id number] 19:56:00 Test Item Value Reference Range Interpretation Comments UA Color (test code = Yellow *NA*(06/15/16 UA Color) 2:56 PM) [facility]annC[facility]AC [id number] 19:56:00 Test Item Value Reference Range Interpretation Comments Troponin-I (test code 6.52 See_Comment [Auto mated message] The = Troponin-I) system which g enerated this result transmit jigar reference range : <=0.40. The reference r [place] was not used to interpr et this result as sonido l/abnormal. [facility] HospitalHire [facility] [id number] 19:56:00 Test Item Value Reference Range Interpretation Comments Globulin (test code = Globulin) 3.7 2.7-4.2 [facility] [id number] 19:56:00 Test Item Value Reference Range Interpretation Comments A/G Ratio (test code = A/G Ratio) 0.9 0.7-1.6 [facility] [id number] 19:56:00 Test Item Value Reference Range Interpretation Comments B/C Ratio (test code = B/C Ratio) 19 6-25 [facility] [id number] 19:56:00 Test Item Value Reference Range Interpretation Comments Bili Total (test code = Bili Total) 0.5 0.2-1.3 [facility] [id number] 19:56:00 Test Item Value Reference Range Interpretation Comments Albumin Lvl (test code = Albumin Lvl) 3.3 3.5-5.0 [facility] [id number] 19:56:00 Test Item Value Reference Range Interpretation Comments Total Protein (test code = Total 7.0 6.4-8.4 Protein) [facility] [id number] 19:56:00 Test Item Value Reference Range Interpretation Comments Alk Phos (test code = Alk Phos) 68 39-136 [facility] [id number] 19:56:00 Test Item Value Reference Range Interpretation Comments AST (test code = AST) 51 See_Comment [Auto mated message] The system which ge nerated this result transmit jigar reference range : <=37. The reference range was not used to interpr et this result as sonido l/abnormal. [facility] [id number] 19:56:00 Test Item Value Reference Range Interpretation Comments ALT (test code = ALT) 44 See_Comment [Auto mated message] The system which ge nerated this result transmit jigar reference range : <=65. The reference range was not used to interpr et this result as sonido l/abnormal. [facility]ann[facility] [id number] 19:56:00 Test Item Value Reference Range Interpretation Comments U Cannab Scr (test Negative *NA*(06/15/16 code = U Cannab Scr) 2:56 PM) [facility] [id number] 19:56:00 Test Item Value Reference Range Interpretation Comments U Phencyc Scr (test Negative *NA*(06/15/16 code = U Phencyc Scr) 2:56 PM) [facility] [id number] 19:56:00 Test Item Value Reference Range Interpretation Comments U Opiate Scr (test Negative *NA*(06/15/16 code = U Opiate Scr) 2:56 PM) [facility] [id number] 19:56:00 Test Item Value Reference Range Interpretation Comments U Cocaine Scr (test Negative *NA*(06/15/16 code = U Cocaine Scr) 2:56 PM) [facility] [id number] 19:56:00 Test Item Value Reference Range Interpretation Comments U Benzodia Scr (test Negative *NA*(06/15/16 code = U Benzodia Scr) 2:56 PM) [facility] [id number] 19:56:00 Test Item Value Reference Range Interpretation Comments U Amph Scr (test code Negative *NA*(06/15/16 = U Amph Scr) 2:56 PM) [facility] [id number] 19:56:00 Test Item Value Reference Range Interpretation Comments U Elsy Scr (test code Negative *NA*(06/15/16 = U Elsy Scr) 2:56 PM) [facility] [id number] 19:56:00 Test Item Value Reference Range Interpretation Comments UDS Note (test code = See Note (06/15/16 2:56 UDS Note) PM) [facility] [id number] 19:56:00 Test Item Value Reference Range Interpretation Comments Hep Bs Ag (test code Negative *NA*(06/15/16 = Hep Bs Ag) 2:56 PM) [facility] [id number] 19:56:00 Test Item Value Reference Range Interpretation Comments Hep B Core IgM (test Negative *NA*(06/15/16 code = Hep B Core 2:56 PM) IgM) [facility] [id number] 19:56:00 Test Item Value Reference Range Interpretation Comments Hep C Ab (test code = Positive *ABN*(06/15/16 Hep C Ab) 2:56 PM) [facility] [id number] 19:56:00 Test Item Value Reference Range Interpretation Comments Hep A IgM (test code Negative *NA*(06/15/16 = Hep A IgM) 2:56 PM) [facility] [id number] 19:56:00 Test Item Value Reference Range Interpretation Comments Hgb A1C (test code = Hgb A1C) 6.6 [facility] [id number] 19:56:00 Test Item Value Reference Range Interpretation Comments UA pH (test code = UA pH) 5.5 1 5.0-8.0 [facility] [id number] 19:56:00 Test Item Value Reference Range Interpretation Comments UA Spec Grav (test code = UA Spec 1.020 1 Grav) [facility] [id number] 19:56:00 Test Item Value Reference Range Interpretation Comments UA Protein (test code Negative (06/15/16 2:56 = UA Protein) PM) [facility] [id number] 19:56:00 Test Item Value Reference Range Interpretation Comments UA Turbidity (test code = Clear (06/15/16 2:56 UA Turbidity) PM) [facility] [id number] 19:56:00 Test Item Value Reference Range Interpretation Comments UA Leuk Est (test Negative (06/15/16 2:56 code = UA Leuk Est) PM) [facility] [id number] 19:56:00 Test Item Value Reference Range Interpretation Comments Micro? (test code = Not Indicated (06/15/16 Micro?) 2:56 PM) [facility] [id number] 19:56:00 Test Item Value Reference Range Interpretation Comments UA Glucose (test code Negative (06/15/16 2:56 = UA Glucose) PM) [facility] [id number] 19:56:00 Test Item Value Reference Range Interpretation Comments UA Bili (test code = Negative *NA*(06/15/16 UA Bili) 2:56 PM) [facility] [id number] 19:56:00 Test Item Value Reference Range Interpretation Comments UA Ketones (test code Negative *NA*(06/15/16 = UA Ketones) 2:56 PM) [facility] [id number] 19:56:00 Test Item Value Reference Range Interpretation Comments UA Blood (test code = Negative (06/15/16 2:56 UA Blood) PM) [facility] [id number] 19:56:00 Test Item Value Reference Range Interpretation Comments UA Nitrite (test code Negative (06/15/16 2:56 = UA Nitrite) PM) [facility] [id number] 19:56:00 Test Item Value Reference Range Interpretation Comments UA Urobilinogen (test code = UA 0.2 0.1-1.0 Urobilinogen) [facility] [id number] 19:56:00 Test Item Value Reference Range Interpretation Comments UA Color (test code = Yellow *NA*(06/15/16 UA Color) 2:56 PM) [facility] HermannCARDIAC [id number] 19:56:00 Test Item Value Reference Range Interpretation Comments Troponin-I (test code 6.52 See_Comment [Auto mated message] The = Troponin-I) system which g enerated this result transmit jigar reference range : <=0.40. The reference r lou[place] was not used to interpr et this result as sonido l/abnormal. [facility] HermannCHEM [id number] 19:56:00 Test Item Value Reference Range Interpretation Comments Globulin (test code = Globulin) 3.7 2.7-4.2 [facility]2017-03-22 19:56:00 Test Item Value Reference Range Interpretation Comments A/G Ratio (test code = A/G Ratio) 0.9 0.7-1.6 [facility]2017-03-22 19:56:00 Test Item Value Reference Range Interpretation Comments B/C Ratio (test code = B/C Ratio) 19 6-25 [facility]2017-03-22 19:56:00 Test Item Value Reference Range Interpretation Comments Bili Total (test code = Bili Total) 0.5 0.2-1.3 [facility]2017-03-22 19:56:00 Test Item Value Reference Range Interpretation Comments Albumin Lvl (test code = Albumin Lvl) 3.3 3.5-5.0 [facility]2017-03-22 19:56:00 Test Item Value Reference Range Interpretation Comments Total Protein (test code = Total 7.0 6.4-8.4 Protein) [facility]2017-03-22 19:56:00 Test Item Value Reference Range Interpretation Comments Alk Phos (test code = Alk Phos) 68 39-136 [facility]2017-03-22 19:56:00 Test Item Value Reference Range Interpretation Comments AST (test code = AST) 51 See_Comment [Auto mated message] The system which ge nerated this result transmit jigar reference range : <=37. The reference range was not used to interpr et this result as sonido l/abnormal. [facility] [id number] 19:56:00 Test Item Value Reference Range Interpretation Comments ALT (test code = ALT) 44 See_Comment [Auto mated message] The system which ge nerated this result transmit jigar reference range : <=65. The reference range was not used to interpr et this result as sonido l/abnormal. [facility]DR[facility] [id number] 19:56:00 Test Item Value Reference Range Interpretation Comments U Cannab Scr (test Negative *NA*(06/15/16 code = U Cannab Scr) 2:56 PM) [facility] [id number] 19:56:00 Test Item Value Reference Range Interpretation Comments U Phencyc Scr (test Negative *NA*(06/15/16 code = U Phencyc Scr) 2:56 PM) [facility] [id number] 19:56:00 Test Item Value Reference Range Interpretation Comments U Opiate Scr (test Negative *NA*(06/15/16 code = U Opiate Scr) 2:56 PM) [facility] [id number] 19:56:00 Test Item Value Reference Range Interpretation Comments U Cocaine Scr (test Negative *NA*(06/15/16 code = U Cocaine Scr) 2:56 PM) [facility] [id number] 19:56:00 Test Item Value Reference Range Interpretation Comments U Benzodia Scr (test Negative *NA*(06/15/16 code = U Benzodia Scr) 2:56 PM) [facility] [id number] 19:56:00 Test Item Value Reference Range Interpretation Comments U Amph Scr (test code Negative *NA*(06/15/16 = U Amph Scr) 2:56 PM) [facility] [id number] 19:56:00 Test Item Value Reference Range Interpretation Comments U Elsy Scr (test code Negative *NA*(06/15/16 = U Elsy Scr) 2:56 PM) [facility] [id number] 19:56:00 Test Item Value Reference Range Interpretation Comments UDS Note (test code = See Note (06/15/16 2:56 UDS Note) PM) [facility] [id number] 19:56:00 Test Item Value Reference Range Interpretation Comments Hep Bs Ag (test code Negative *NA*(06/15/16 = Hep Bs Ag) 2:56 PM) [facility] [id number] 19:56:00 Test Item Value Reference Range Interpretation Comments Hep B Core IgM (test Negative *NA*(06/15/16 code = Hep B Core 2:56 PM) IgM) [facility] H[id number] 19:56:00 Test Item Value Reference Range Interpretation Comments Hep C Ab (test code = Positive *ABN*(06/15/16 Hep C Ab) 2:56 PM) [facility] [id number] 19:56:00 Test Item Value Reference Range Interpretation Comments Hep A IgM (test code Negative *NA*(06/15/16 = Hep A IgM) 2:56 PM) [facility]SPE[facility] [id number] 19:56:00 Test Item Value Reference Range Interpretation Comments Hgb A1C (test code = Hgb A1C) 6.6 [facility] [id number] 19:56:00 Test Item Value Reference Range Interpretation Comments UA pH (test code = UA pH) 5.5 1 5.0-8.0 [facility] [id number] 19:56:00 Test Item Value Reference Range Interpretation Comments UA Spec Grav (test code = UA Spec 1.020 1 Grav) [facility] AND [id number] 19:56:00 Test Item Value Reference Range Interpretation Comments UA Protein (test code Negative (06/15/16 2:56 = UA Protein) PM) [facility] [id number] 19:56:00 Test Item Value Reference Range Interpretation Comments UA Turbidity (test code = Clear (06/15/16 2:56 UA Turbidity) PM) [facility] AND [id number] 19:56:00 Test Item Value Reference Range Interpretation Comments UA Leuk Est (test Negative (06/15/16 2:56 code = UA Leuk Est) PM) [facility] AND [id number] 19:56:00 Test Item Value Reference Range Interpretation Comments Micro? (test code = Not Indicated (06/15/16 Micro?) 2:56 PM) [facility] AND [id number] 19:56:00 Test Item Value Reference Range Interpretation Comments UA Glucose (test code Negative (06/15/16 2:56 = UA Glucose) PM) [facility] [id number] 19:56:00 Test Item Value Reference Range Interpretation Comments UA Bili (test code = Negative *NA*(06/15/16 UA Bili) 2:56 PM) [facility] [id number] 19:56:00 Test Item Value Reference Range Interpretation Comments UA Ketones (test code Negative *NA*(06/15/16 = UA Ketones) 2:56 PM) [facility] [id number] 19:56:00 Test Item Value Reference Range Interpretation Comments UA Blood (test code = Negative (06/15/16 2:56 UA Blood) PM) [facility] [id number] 19:56:00 Test Item Value Reference Range Interpretation Comments UA Nitrite (test code Negative (06/15/16 2:56 = UA Nitrite) PM) [facility] [id number] 19:56:00 Test Item Value Reference Range Interpretation Comments UA Urobilinogen (test code = UA 0.2 0.1-1.0 Urobilinogen) [facility] [id number] 19:56:00 Test Item Value Reference Range Interpretation Comments UA Color (test code = Yellow *NA*(06/15/16 UA Color) 2:56 PM) [facility] [id number] 19:56:00 Test Item Value Reference Range Interpretation Comments Troponin-I (test code 6.52 See_Comment [Auto mated message] The = Troponin-I) system which g enerated this result transmit jigar reference range : <=0.40. The reference r louis was not used to interpr et this result as sonido l/abnormal. [facility] [employer] [id number] 19:56:00 Test Item Value Reference Range Interpretation Comments Globulin (test code = Globulin) 3.7 2.7-4.2 [facility] [id number] 19:56:00 Test Item Value Reference Range Interpretation Comments A/G Ratio (test code = A/G Ratio) 0.9 0.7-1.6 [facility] [id number] 19:56:00 Test Item Value Reference Range Interpretation Comments B/C Ratio (test code = B/C Ratio) 19 6-25 [facility]CHE[facility] [id number] 19:56:00 Test Item Value Reference Range Interpretation Comments Bili Total (test code = Bili Total) 0.5 0.2-1.3 [facility] [employer] [id number] 19:56:00 Test Item Value Reference Range Interpretation Comments Albumin Lvl (test code = Albumin Lvl) 3.3 3.5-5.0 [facility] [id number] 19:56:00 Test Item Value Reference Range Interpretation Comments Total Protein (test code = Total 7.0 6.4-8.4 Protein) [facility] [id number] 19:56:00 Test Item Value Reference Range Interpretation Comments Alk Phos (test code = Alk Phos) 68 39-136 [facility] [employer] [id number] 19:56:00 Test Item Value Reference Range Interpretation Comments AST (test code = AST) 51 See_Comment [Auto mated message] The system which ge nerated this result transmit jigar reference range : <=37. The reference range was not used to interpr et this result as sonido l/abnormal. [facility] [employer] [id number] 19:56:00 Test Item Value Reference Range Interpretation Comments ALT (test code = ALT) 44 See_Comment [Auto mated message] The system which ge nerated this result transmit jigar reference range : <=65. The reference range was not used to interpr et this result as sonido l/abnormal. [facility] [id number] 19:56:00 Test Item Value Reference Range Interpretation Comments U Cannab Scr (test Negative *NA*(06/15/16 code = U Cannab Scr) 2:56 PM) [facility] [id number] 19:56:00 Test Item Value Reference Range Interpretation Comments U Phencyc Scr (test Negative *NA*(06/15/16 code = U Phencyc Scr) 2:56 PM) [facility] [id number] 19:56:00 Test Item Value Reference Range Interpretation Comments U Opiate Scr (test Negative *NA*(06/15/16 code = U Opiate Scr) 2:56 PM) [facility] [id number] 19:56:00 Test Item Value Reference Range Interpretation Comments U Cocaine Scr (test Negative *NA*(06/15/16 code = U Cocaine Scr) 2:56 PM) [facility] [id number] 19:56:00 Test Item Value Reference Range Interpretation Comments U Benzodia Scr (test Negative *NA*(06/15/16 code = U Benzodia Scr) 2:56 PM) [facility] [id number] 19:56:00 Test Item Value Reference Range Interpretation Comments U Amph Scr (test code Negative *NA*(06/15/16 = U Amph Scr) 2:56 PM) [facility] [id number] 19:56:00 Test Item Value Reference Range Interpretation Comments U Elsy Scr (test code Negative *NA*(06/15/16 = U Elsy Scr) 2:56 PM) [facility] [id number] 19:56:00 Test Item Value Reference Range Interpretation Comments UDS Note (test code = See Note (06/15/16 2:56 UDS Note) PM) [facility] [id number] 19:56:00 Test Item Value Reference Range Interpretation Comments Hep Bs Ag (test code Negative *NA*(06/15/16 = Hep Bs Ag) 2:56 PM) [facility] [id number] 19:56:00 Test Item Value Reference Range Interpretation Comments Hep B Core IgM (test Negative *NA*(06/15/16 code = Hep B Core 2:56 PM) IgM) [facility] [id number] 19:56:00 Test Item Value Reference Range Interpretation Comments Hep C Ab (test code = Positive *ABN*(06/15/16 Hep C Ab) 2:56 PM) [facility] [id number] 19:56:00 Test Item Value Reference Range Interpretation Comments Hep A IgM (test code Negative *NA*(06/15/16 = Hep A IgM) 2:56 PM) [facility] [id number] 19:56:00 Test Item Value Reference Range Interpretation Comments Hgb A1C (test code = Hgb A1C) 6.6 [facility] Notes Date/Time Note Provider Source 2016-06-30 06:25:00-00:00 Clinical Indication:65 years Male with Tube placement/removal/reposition [facility] Comparison: Chest x-ray of 06/27/2016 FINDINGS: Lines: Right IJ central veno us catheter is unchanged. Left chest tube and mediastinal drain have been removed. The single frontal chest radiograph shows normal lung volumes. Linear bibasilar and perihilar opacities Probable small left pleural effusion. No pneumothorax. Cardiac silhouette is stable . Surgical changes of the mediastinum. Calcified hilar/mediastinal lymph nodes.. Pulmonary vasculature is normal. The trachea is midline. There are no acute osseous abnormalities noted. IMPRESSION: No new acute abnormalities. Bibasilar/perihilar atelectasis and likely small left pleural effusion. 2016-06-30 06:25:00-00:00 Clinical Indication:65 years Male with Tube placement/removal/reposition [facility] Comparison: Chest x-ray of 06/27/2016 FINDINGS: Lines: Right IJ central veno us catheter is unchanged. Left chest tube and mediastinal drain have been removed. The single frontal chest radiograph shows normal lung volumes. Linear bibasilar and perihilar opacities Probable small left pleural effusion. No pneumothorax. Cardiac silhouette is stable . Surgical changes of the mediastinum. Calcified hilar/mediastinal lymph nodes.. Pulmonary vasculature is normal. The trachea is midline. There are no acute osseous abnormalities noted. IMPRESSION: No new acute abnormalities. Bibasilar/perihilar atelectasis and likely small left pleural effusion. 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 Right internal jugular central line is stable. [place] cath eter has been removed. Cardi ac silhouette is normal in size. Calcified AP window lymph node is noted. Lung volumes are diminished and bibasilar atelectasis is seen. No pleural effusion or pneumothorax is seen. The osseous structures are unremarkable. 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 Right internal jugular central line is stable. [place] cath eter has been removed. Cardi ac silhouette is normal in size. Calcified AP window lymph node is noted. Lung volumes are diminished and bibasilar atelectasis is seen. No pleural effusion or pneumothorax is seen. The osseous structures are unremarkable. IMPRESSION: Interval removal of [place] catheter SL: [id number] 2016-06-26 06:13:00-00:00 Clinical Indication:65 years Male with Tube placement/removal/reposition [facility] Comparison: Chest x-ray 06/25/2016 FINDINGS: Lines: Unchanged positions o f right IJ central venous catheter, right IJ pulmonary arterial catheter, left chest tube, mediastinal drain The single frontal chest radiograph shows low jessika ng volumes. Airspace opacities in the lower lobes unchanged No pleural effusion. No pneumothorax. Cardiac silhouette is stable , partially obscured. Pulmonary vasculature is normal. The trachea is midline. There are no acute osseous abnormalities noted. IMPRESSION: No significant change since prior chest x-ray. Opacities in the lung bases and perihilar regions are likely atelectasis. Low lung volumes. 2016-06-26 06:13:00-00:00 Clinical Indication:65 years Male with Tube placement/removal/reposition [facility] Comparison: Chest x-ray 06/25/2016 FINDINGS: Lines: Unchanged positions o f right IJ central venous catheter, right IJ pulmonary arterial catheter, left chest tube, mediastinal drain The single frontal chest radiograph shows low jessika ng volumes. Airspace opacities in the lower lobes unchanged No pleural effusion. No pneumothorax. Cardiac silhouette is stable , partially obscured. Pulmonary vasculature is normal. The trachea is midline. There are no acute osseous abnormalities noted. IMPRESSION: No significant change since prior chest x-ray. Opacities in the lung bases and perihilar regions are likely atelectasis. Low lung volumes. 2016-06-25 04:51:00-00:00 Chest 1view DX [facility] CLINICAL HISTORY:Tube placement/removal/repositi on COMPARISON: 06/24/2016 FINDINGS/IMPRESSION: Limited AP portable study. Support Lines/Devices: Inter tomas removal of ET tube. Various other support lines and tubes are stable in position. Lungs: Persistent bibasilar atelectasis. No large effusion is present on either side. Cardiomediastinum: Stable en largement of cardiac silhouette. Poststernotomy changes. Bone and Soft Tissues: No significant abnormalit y is evident. Multiple EKG leads and other wires project over the patient's chest. SL: [id number] 2016-06-25 04:51:00-00:00 Chest 1view DX [facility] CLINICAL HISTORY:Tube placement/removal/repositi on COMPARISON: 06/24/2016 FINDINGS/IMPRESSION: Limited AP portable study. Support Lines/Devices: Inter tomas removal of ET tube. Various other support lines and tubes are stable in position. Lungs: Persistent bibasilar atelectasis. No large effusion is present on either side. Cardiomediastinum: Stable en largement of cardiac silhouette. Poststernotomy changes. Bone and Soft Tissues: No significant abnormalit y is evident. Multiple EKG leads and other wires project over the patient's chest. SL: [id number] 2016-06-24 17:52:03-00:00 Patient Name: CHYNA RYAN [facility] : 1950; Age: 65 years y/o Male MR: [id number] * CHEST, portable, 1 view HISTORY: Status post median sternotomy, intubate d. COMPARISON: 06/18/2016. This is the initial post operative study. TECHNIQUE: A portable frontal radiograph of the chest was obtained. IMPRESSION: 1. The endotracheal tube is in good position with its tip 3.5 cm above the marcus. 2. New poststernotomy change s. There is a left chest tube and mediastinal drain. There is no pneumothorax. 3. Mild cardiomegaly. There is no overt failure. 4. Shallow degree of inspira tion with moderate areas of atelectasis in the perihilar regions and left base. 5. There is a right IJ [place] catheter. The catheter tip is in the expected location of the pulmonary valve. The [place] catheter does not extend into either main pulmonary artery. 6. The tip of the right IJ c entral venous catheter is in the lower superior vena cava. 7. There are mild scattered degenerative changes involving the thoracic spine. The regional skeleton is otherwise unremarkable. SL: [id number] 2016-06-24 17:52:03-00:00 Patient Name: CHYNA RYAN [facility] : 1950; Age: 65 years y/o Male MR: [id number] * CHEST, portable, 1 view HISTORY: Status post median sternotomy, intubate d. COMPARISON: 06/18/2016. This is the initial post operative study. TECHNIQUE: A portable frontal radiograph of the chest was obtained. IMPRESSION: 1. The endotracheal tube is in good position with its tip 3.5 cm above the marcus. 2. New poststernotomy change s. There is a left chest tube and mediastinal drain. There is no pneumothorax. 3. Mild cardiomegaly. There is no overt failure. 4. Shallow degree of inspira tion with moderate areas of atelectasis in the perihilar regions and left base. 5. There is a right IJ [place] catheter. The catheter tip is in the expected location of the pulmonary valve. The [place] catheter does not extend into either main pulmonary artery. 6. The tip of the right IJ c entral venous catheter is in the lower superior vena cava. 7. There are mild scattered degenerative changes involving the thoracic spine. The regional skeleton is otherwise unremarkable. SL: [id number] 2016-06-18 09:07:00-00:00 CHEST, 2 VIEWS [facility] HISTORY: ; Respiratory distress; COMPARISON: June 15, 2016 FINDINGS: Lungs are underinflated with mild bilateral basal atelectasis/infiltrate, left greater than right. No pleural effusion or pneumothorax. Stable mediastinum. No acute osseous abnormality . SL: [id number] 2016-06-18 09:07:00-00:00 CHEST, 2 VIEWS [facility] HISTORY: ; Respiratory distress; COMPARISON: June 15, 2016 FINDINGS: Lungs are underinflated with mild bilateral basal atelectasis/infiltrate, left greater than right. No pleural effusion or pneumothorax. Stable mediastinum. No acute osseous abnormality . : [id number] 2016-06-17 20:23:46-00:00 ULTRASOUND ABDOMEN RIGHT [facility] HISTORY: Abnormal Lab tests- LFT; COMPARISON: None available. TECHNIQUE: Grayscale and limited color sonographic evaluation of the right upper quadrant was performed with standard technique. FINDINGS: LIVER: The visualized liver shows n ormal contour, size, and morphology without focal lesions. BILE DUCTS: The intrahepatic and extrahe patic bile ducts are not dilated with the common bile duct measuring 4 mm. GALLBLADDER: There are no gallstones, gal lbladder sludge, pericholecystic fluid or wall thickening. PANCREAS: The pancreas body is normal, the head and tail a re obscured by bowel gas. KIDNEY: The right kidney measures 9. 4 x 4.7 x 5.5 cm. There is normal renal contour and morphology, with normal parenchymal echotexture. There is no hydronephrosis. INFERIOR VENA CAVA: Visualized portions appear normal. ASCITES: There is no right abdominal ascites. IMPRESSION: Normal study. SL: [id number] 2016-06-17 20:23:46-00:00 ULTRASOUND ABDOMEN RIGHT UPPER QUADRAN T [facility] HISTORY: Abnormal Lab tests- LFT; COMPARISON: None available. TECHNIQUE: Grayscale and limited color sonographic evaluation of the right upper quadrant was performed with standard technique. FINDINGS: LIVER: The visualized liver shows n ormal contour, size, and morphology without focal lesions. BILE DUCTS: The intrahepatic and extrahe patic bile ducts are not dilated with the common bile duct measuring 4 mm. GALLBLADDER: There are no gallstones, gal lbladder sludge, pericholecystic fluid or wall thickening. PANCREAS: The pancreas body is normal, the head and tail a re obscured by bowel gas. KIDNEY: The right kidney measures 9. 4 x 4.7 x 5.5 cm. There is normal renal contour and morphology, with normal parenchymal echotexture. There is no hydronephrosis. INFERIOR VENA CAVA: Visualized portions appear normal. ASCITES: There is no right abdominal ascites. IMPRESSION: Normal study. SL: [id number] 2016-06-15 18:30:35-00:00 Patient Name: CHYNA RYAN [facility] : 1950; Age: 65 years Male MR: [id number] Study: Chest 2 views DX Order Time: 06/15/2016 1: 54 PM CDT CLINICAL INDICATION: Abnormal chest sounds COMPARISON: None FINDINGS: Lines: None. Lungs: Interstitial opacitie s within the left lower lobe. No effusion or pneumothorax. Mediastinum: The cardiac ramiro houette is within normal limits of size. Midline trachea. Bones and soft tissues: No acute abnormalities. IMPRESSION: Findings suggest left lower lobe pneumonia. Recommend follow-up chest imaging to document resolution. SL: [id number] 2016-06-15 18:30:35-00:00 Patient Name: CHYNA RYAN [facility] : 1950; Age: 65 years Male MR: [id number] Study: Chest 2 views DX Order Time: 06/15/2016 1: 54 PM CDT CLINICAL INDICATION: Abnormal chest sounds COMPARISON: None FINDINGS: Lines: None. Lungs: Interstitial opacitie s within the left lower lobe. No effusion or pneumothorax. Mediastinum: The cardiac ramiro houette is within normal limits of size. Midline trachea. Bones and soft tissues: No acute abnormalities. IMPRESSION: Findings suggest left lower lobe pneumonia. Recommend follow-up chest imaging to document resolution. SL: [id number]
--- NOTE | 2022-11-23 13:08 | RAD REPORT ---
EXAM DESCRIPTION: RAD - Knee Right 3 View - 11/23/2022 12:49 pm CLINICAL HISTORY: Right knee pain status post injury FINDINGS: No fracture or dislocation is seen. Right knee prosthesis is in good position Marked prepatellar soft tissue swelling
--- NOTE | 2022-11-23 13:36 | ER ---
Nurse's Notes [facility] Name: Valerio Berg Age: 72 yrs Sex: Male : 1950 Arrival Date: 11/23/2022 Time: 12:13 Bed 19 Private MD: Diagnosis: Knee contusion, knee effusion right side Presentation: 11/23 12:24 Chief complaint: Patient states: Right knee injury 1 hour ago - tripped and fell onto ld1 hard wood floor. Denies other injuries. Coronavirus screen: At this time, the client does not indicate any symptoms associated with coronavirus-19. Ebola Screen: No symptoms or risks identified at this time. Initial Sepsis Screen:. Initial Sepsis Screen: Does the patient meet any 2 criteria? No. Patient's initial sepsis screen is negative. Does the patient have a suspected source of infection? No. Patient's initial sepsis screen is negative. Risk Assessment: Do you want to hurt yourself or someone else? Patient reports no desire to harm self or others. Onset of symptoms was November 23, 2022 at 12:25. 12:24 Method Of Arrival: Wheelchair ld1 12:24 Acuity: ADRIÁN 4 ld1 Triage Assessment: 12:24 General: Appears in no apparent distress. comfortable, Behavior is calm, cooperative, ld1 appropriate for age. Pain: Denies pain. EENT: No signs and/or symptoms were reported regarding the EENT system. Neuro: Level of Consciousness is awake, alert, obeys commands, Oriented to person, place, time, situation. Cardiovascular: Capillary refill < 3 seconds Patient's skin is warm and dry. Respiratory: Airway is patent Respiratory effort is even, unlabored. GI: Abdomen is flat, non-distended. : No signs and/or symptoms were reported regarding the genitourinary system. Derm: No signs and/or symptoms reported regarding the dermatologic system. Musculoskeletal: No signs and/or symptoms reported regarding the musculoskeletal system. Historical: - Allergies: 12:23 Betadine; ld1 12:23 Povidone-Iodine; ld1 - PMHx: 12:23 "Stroke"; Borderline Diabetes; COPD; Hypothyroidism; Myocardial infarction; ld1 - Immunization history:: Adult Immunizations up to date. - Social history:: Smoking status: Patient denies any tobacco usage or history of. Patient/guardian denies using alcohol. Screenin:26 [facility] ED Fall Risk Assessment (Adult) History of falling in the last 3 months, ld1 including since admission Yes- single mechanical fall (1 pt). Abuse screen: Denies threats or abuse. Denies injuries from another. Nutritional screening: No deficits noted. Tuberculosis screening: No symptoms or risk factors identified. Assessment: 12:26 Reassessment: See triage assessment. ld1 Vital Signs: 12:24 Pulse 74; Resp 18; Temp 98.4(O); Pulse Ox 96% on R/A; Weight 93.89 kg; Height 5 ft. 10 ld1 in. ; Pain 0/10; 12:26 BP 133 / 85; ld1 13:32 BP 132 / 78; Pulse 70; Resp 18; Pulse Ox 98% on R/A; ld1 12:24 Body Mass Index 29.70 (93.89 kg, 177.8 cm) ld1 12:24 Pain Scale: Adult ld1 ED Course: 12:15 Patient arrived in ED. rg4 12:16 Jana Barnard MD is Attending Physician. sp3 12:23 Hanna Amado, APURVA is Primary Nurse. ld1 12:24 Arm band placed on right wrist. ld1 12:25 Triage completed. ld1 12:26 Patient has correct armband on for positive identification. Placed in gown. Bed in low ld1 position. Call light in reach. Side rails up X2. Pulse ox on. NIBP on. Door closed. Noise minimized. Warm blanket given. 12:26 No provider procedures requiring assistance completed. ld1 12:51 Knee Right 3 View XRAY: (please make third view sun rise view) In Process Unspecified. EDMS 13:58 Patient did not have IV access during this emergency room visit. ld1 Administered Medications: No medications were administered Medication: 13:58 VIS not applicable for this client. ld1 Outcome: 13:36 Discharge ordered by . sp3 13:58 Discharged to home ambulatory. ld1 13:58 Condition: stable 13:58 Discharge instructions given to patient, Instructed on discharge instructions, follow up and referral plans. Demonstrated understanding of instructions, follow-up care. 13:58 Patient left the ED. ld1 Signatures: Dispatcher [employer] EDMS Chantale Callaway rg4 Hanna Amado, RN RN ld1 Jana Barnard, MD sp3
--- NOTE | 2022-11-23 13:36 | EDPHYS ---
Physician Documentation [facility] Name: Valerio Berg Age: 72 yrs Sex: Male : 1950 Arrival Date: 11/23/2022 Time: 12:13 Bed 19 Private MD: ED Physician Jana Barnard HPI: 11/23 12:39 This 72 yrs old Black Male presents to ER via Wheelchair with complaints of Knee Injury.3 12:39 72-year-old male with a history of COPD, prior CVA, diabetes, prior NC presents to the 3 ED with chief complaint of mechanical fall with right knee injury and swelling. Patient states she has had similar injury in the past secondary to the same mechanism. Denies any prodromal event prior to the fall including syncope, chest pain, shortness of breath, vertigo, dizziness, headache, or any other symptoms. Patient landed on the right knee and was able to stand back up and ambulate although it was painful. He denies any secondary injury including head, neck, back, or other extremity.. Historical: - Allergies: 12:23 Betadine; ld1 12:23 Povidone-Iodine; ld1 - PMHx: 12:23 "Stroke"; Borderline Diabetes; COPD; Hypothyroidism; Myocardial infarction; ld1 - Immunization history:: Adult Immunizations up to date. - Social history:: Smoking status: Patient denies any tobacco usage or history of. Patient/guardian denies using alcohol. ROS: 12:40 Constitutional: Negative for fever, chills, and weight loss, Eyes: Negative for injury, sp3 pain, redness, and discharge, ENT: Negative for injury, pain, and discharge, Neck: Negative for injury, pain, and swelling, Cardiovascular: Negative for chest pain, palpitations, and edema, Respiratory: Negative for shortness of breath, cough, wheezing, and pleuritic chest pain, Abdomen/GI: Negative for abdominal pain, nausea, vomiting, diarrhea, and constipation, Back: Negative for injury and pain, Skin: Negative for injury, rash, and discoloration, Neuro: Negative for headache, weakness, numbness, tingling, and seizure, Psych: Negative for depression, anxiety, suicide ideation, homicidal ideation, and hallucinations, Allergy/Immunology: Negative for hives, rash, and allergies, Endocrine: Negative for neck swelling, polydipsia, polyuria, polyphagia, and marked weight changes. 12:40 All other systems are negative. Exam: 12:40 Constitutional: This is a well developed, well nourished patient who is awake, alert, sp3 and in no acute distress. Head/Face: Normocephalic, atraumatic. Chest/axilla: Normal chest wall appearance and motion. Nontender with no deformity. No lesions are appreciated. Cardiovascular: Regular rate and rhythm with a normal S1 and S2. No gallops, murmurs, or rubs. Normal PMI, no JVD. No pulse deficits. Respiratory: Lungs have equal breath sounds bilaterally, clear to auscultation and percussion. No rales, rhonchi or wheezes noted. No increased work of breathing, no retractions or nasal flaring. Abdomen/GI: Soft, non-tender, with normal bowel sounds. No distension or tympany. No guarding or rebound. No evidence of tenderness throughout. Neuro: Awake and alert, GCS 15, oriented to person, place, time, and situation. Cranial nerves II-XII grossly intact. Motor strength 5/5 in all extremities. Sensory grossly intact. Cerebellar exam normal. Normal gait. Psych: Awake, alert, with orientation to person, place and time. Behavior, mood, and affect are within normal limits. 12:40 Musculoskeletal/extremity: Right lower extremity exam demonstrates distal lower leg, ankle and foot is neurovascular intact with no injuries. Proximally the right hip is uninjured there is no pain on axial load. Right knee demonstrates knee effusion with flexion intact although painful. Swelling is greater on the patella than the medial and lateral ends of the knee joint. . Vital Signs: 12:24 Pulse 74; Resp 18; Temp 98.4(O); Pulse Ox 96% on R/A; Weight 93.89 kg; Height 5 ft. 10 ld1 in. ; Pain 0/10; 12:26 BP 133 / 85; ld1 13:32 BP 132 / 78; Pulse 70; Resp 18; Pulse Ox 98% on R/A; ld1 12:24 Body Mass Index 29.70 (93.89 kg, 177.8 cm) ld1 12:24 Pain Scale: Adult ld1 MDM: 12:25 Patient medically screened. sp3 12:41 Data reviewed: vital signs, nurses notes, radiologic studies. ED course: 72-year-old sp3 male with PMH above presents now with mechanical right knee injury and has a knee effusion. Will obtain x-rays of the right knee including a sunrise view. I discussed possibility of knee immobilizer and crutches with patient who states he has done in the past and thinks he can do it though he is concerned about increasing fall risk with this. He currently walks with a cane. He stated he prefers to just rest more and walk minimally as opposed to using crutches and a knee immobilizer. If x-rays are negative, we will place an Main wrap on the knee and have patient use the after mentioned ambulation modality and follow-up with orthopedics as needed.. 13:35 ED course: After reviewing x-ray it is demonstrated that patient has had a prior knee sp3 replacement. Prosthesis is in good position and there is no new fractures noted. There is prepatellar swelling which was evident clinically. We will discharge patient home on Main wrap with cane usage and rest. Patient declines to use crutches at this time.. 11/23 12:35 Order name: Knee Right 3 View XRAY: (please make third view sun rise view); Complete sp3 Time: 13:34 11/23 13:36 Order name: Main wrap-joint sp3 Administered Medications: No medications were administered Disposition Summary: 11/23/22 13:36 Discharge Ordered Location: Home sp3 Condition: Stable sp3 Diagnosis - Knee contusion, knee effusion right side sp3 Followup: sp3 - With: Private Physician - When: Upon discharge from the Emergency Department - Reason: Continuance of care Discharge Instructions: - Discharge Summary Sheet sp3 - Knee Effusion sp3 Forms: - Medication Reconciliation Form sp3 - Thank You Letter sp3 - Antibiotic Education sp3 - Prescription Opioid Use sp3 - Patient Portal Instructions sp3 - Leadership Thank You Letter sp3 Signatures: Dispatcher [employer] Hanna Rodriguez RN RN ld1 Jana Barnard MD MD sp3
[2022-11-23 14:20] VITALS: TEMP 98.4
[2022-11-23 14:22] VITALS: BP 132/78; O2SAT 98
== END 2022-11-23 13:58 | disposition home or self-care (01) ==
LOC: ER 12:13
DX: M25.461 Effusion, right knee (principal); Z88.3 Allergy status to other anti-infective agents; Z88.8 Allergy status to other drugs, medicaments and biological substances

== ENCOUNTER 2023-01-30 14:52 | Inpatient (IN) | payer OTHER ==
--- OUTSIDE RECORDS SUMMARY | 2023-01-30 14:55 | XMS REPORT | Clinical Summary ---
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 Clostridioides difficile [...] of placement of stent for coronary artery disease Hepatitis B carrier History of hepatitis C [...] count Electrolyte and fluid disorders not elsewhere classified Surgical History Surgery Date Site/Laterality Comments KNEE [...] = 0.6 oz pure alcoho l) Sex and Gender Information Value Date Recorded Sex Assigned at Not on file Gender Identity Not on file Sexual Orientation Not on file Job Start Date Occupation Industry Not on file Not on file Not on file Obstetrics History Last Filed Vital Signs Not on file Plan of Treatment Health Maintenance Due Date Last Done Comments COVID-19 Vaccination (#1) 04/10/1951 Medical Devices Implanted Type Area Cycle Director Device Shelf Model / Identifier Expiration Date Ser ial / Lot Metalware Metalware Right: Arm Description: pt sts he has a metal ryan i n r arm Stent Stent Heart Results Not on fileafter 01/30/2022 Insurance Payer Benefit Plan / Subscriber ID Effective Dates Phone Addre ss Type Group HUMANA HUMANA CHOICE [id number] 2020-Titi [address] [address] Medicare MEDICARE [place] [address] Advance Directives Type Date Recorded 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
--- OUTSIDE RECORDS SUMMARY | 2023-01-30 15:26 | XMS REPORT | Continuity of Care Document ---
:1950 Author Organization [facility] t Address [address]. [address] [place] [address] Care Team Providers Name Role Phone No, Pcp [facility] Primary Care Physician Unavailable Ray Veliz Attending Clinician Unavailable [id number] Attending Clinician Unavailable NINA REYNOSO Attending Clinician Unavailable MOSES TORIBIO Attending Clinician Unavailable SYSTEM, PROVIDER NOT IN Attending Clinician Unavailable BETH ADEN Attending Clinician Unavailable NICOLE CHEEK Attending Clinician Unavailable NICOLE CHEEK Attending Clinician Unavailable Nicole Cheek DO Attending Clinician Doctor Unassigned, [place] Attending Clinician Unavailable Neymar JIMENEZ, Kimberlee Rogers Attending Clinician Eugene JIMENEZ, Vesta Attending Clinician Marcial JIMENEZ, Katelin Attending Clinician Sarah LOVE, Dru Attending Clinician Mulugeta RN, Bailey Villagomez Attending Clinician Unavailable Princess Marquez Attending Clinician Cj MIXON, Antonette Carney Attending Clinician Unavailable Len LOVE, Nissa Attending Clinician Jesika LOVE, Latisha Attending Clinician Milton LOVE, Swapnil Attending Clinician Lit MIXON, Fartun Jones Attending Clinician Unavailable Alex LOVE, Yomaira Martinez Attending Clinician [phone] Phong MIXON, Alyssa Glover Attending Clinician Unavailable Herber OLVE PhD, Armando Marie Attending Clinician [phone] Bud Jarrett MD Attending Clinician [phone] Dionna LOVE, Randolph Gallagher Attending Clinician Vivien LOVE, Alba Trimble Attending Clinician Lavonne LOVE, Darryl Attending Clinician Hayden LOVE PhD, [facility] Attending Clinician Abiodun Borjas MD, Randolph Gallagher Attending Clinician [phone] Elizabeth Zavala Attending Clinician Maverick JIMENEZ, Charito Watts Attending Clinician Prince JIMENEZ, Denny Vidales Attending Clinician Galileo SCAFFOLD BUILDER, Yanet R Attending Clinician Conrad BLUNT, Beck L Attending Clinician Unavailable KRISTINA BLAKE Attending Clinician Unavailable Breezy LOVEMishel Attending Clinician Evi Turner APN Attending Clinician DRU SMITH Attending Clinician Unavailable CJ COYNE Attending Clinician Unavailable Geena Espinosa PT Attending Clinician Denny Nayak MD Attending Clinician Unavailable Nas BLANKENSHIP, Mari Gallagher Attending Clinician Cj Coyne NP Attending Clinician [...] Unavailable Only, Adc Test Attending Clinician Unavailable Eugenia Benedict Attending Clinician [id number] Admitting Clinician Unavailable NINA REYNOSO Admitting Clinician Unavailable MOSES TORIBIO Admitting Clinician Unavailable BETH ADEN Admitting Clinician Unavailable RANDOLPH PAYNE Admitting Clinician Unavailable DRU SMITH Admitting Clinician Unavailable Eugenia Benedict Admitting Clinician Payers Payer Name Policy Type Policy Number Effective Date Expiration Date S kt HU[employer] CHOICE [id number] 2020 MEDICARE PPO 00:00:00 [employer] CHOICE [id number] 2022 00:00:00 [employer] MEDICARE [id number] 2020 ADV 00:00:00 Problems Condition Condition Condition Status Onset Resolution Last Treating Co mments Source Name Details Category Date Date Treatment Clinician Date Paroxysmal Paroxysmal Disease Active 2020-03 Last U nivers atrial atrial 2-21 Assessmen ity of fibrillati fibrillati 00:00: t & Plan: [place] on on 00 Brigitte villagomez of this Anderso note n [...] ides 8 [place] of difficile [place]icile [place] 00 [facility] Acute Acute Disease Active 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 7 [place] of neoplastic neoplastic [place] disease [place] [facility] Chronic Chronic Disease Active Univers obstructiv obstructiv 6-23 it y of e e 00:00: [place] pulmonary pulmonary 00 disease disease [facility] 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:00: [place] lymphoma lymphoma 00 MD [facility] Mass of Mass of Disease Active Univers neck neck 6-14 ity of 00:00: [place] 00 MD [facility] History of History of Disease Active U nivers myocardial myocardial 6-14 it y of infarction [place] 00 [place] [facility] History of History of Disease Active U nivers placement placement 6-14 ity of of stent of stent 00:00: [place] for for 00 coronary coronary Herman o artery artery n disease disease [facility] Wound Wound Disease Active Univers cellulitis cellulitis 1-24 it y of after after 00:00: [place] surgery surgery 00 [facility] Wound Wound Disease Active Univers cellulitis cellulitis 1-24 it y of after after 00:00: [place] surgery surgery 00 [facility] Coronary Coronary Disease Active 2016-03 Unive rs artery artery 2-13 ity of disease disease 00:00: [place] involving involving 00 Medi michael [place] [facility] coronary coronary artery of artery of chickaloon chickaloon heart heart without without angina angina pectoris pectoris Dyspnea Dyspnea Disease Active 2016-03 Univers 2-13 ity of 00:00: [place] [facility] COPD COPD Disease Active 2016-03 [...] 00:00: [place] involving involving 00 Medi michael [place] Branch coronary coronary artery of artery of chickaloon chickaloon heart heart without without angina angina pectoris pectoris Coronary Coronary Disease Active 2016-03 Unive rs artery artery 2-13 ity of disease disease 00:00: [place] involving involving 00 Medi michael [place] Branch coronary coronary artery of artery of chickaloon chickaloon heart heart without without angina angina pectoris pectoris 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 2-11 it y of t status t status 00:00: [place] 00 [facility] ACUTE ACUTE Diagnosis Active 2016-07-19 Mem oria CHEST PAIN CHEST PAIN 3-22 21:59:00 l Active 00:00: [place] 06/15/2016 00 [facility] NSTEMI NSTEMI Diagnosis Active 2016-2016-06-15 Me moria Active 06-15 11:09:00 l 06/15/2016 00:00: Rafat archuleta 00 [facility] CHEST CHEST Diagnosis Active 2016-07-19 Blanca oricuco PAIN, PAIN, 21:59:00 l UNSPECIFIE UNSPECIFIE He rmann D D Active [facility] Hepatitis Hepatitis Disease Active Uni vers B carrier B carrier ity of [facility] History of History of Disease Active U nivprabhjot hepatitis hepatitis ity of C C Yaima archuleta [facility] Long-term Long-term Disease Active Uni vers current current ity of use of use of [place] rituximab rituximab MD Camryn archuleta [facility] Patient Patient Disease Active Univers immunocomp immunocomp it y of romised romised Yaima archuleta [facility] Acute Acute Disease Active Univers injury of injury of ity of kidney kidney Yaima archuleta [facility] Hyperurice Hyperurice Disease Active U nivers damien damien ity of Yaima archuleta [facility] Chronic Chronic Disease Active Last Univers right-side right-side Assessmen ity of d heart d heart t & Plan: [place] failure failure Formattin g of this Anderso [...] due to due to MD [facility] venous venous n catheter catheter [facility] Pneumonia Pneumonia Disease Active Uni vers due to due to ity of Pseudomona Pseudomona Te krishna vidales MD [facility] Sepsis Sepsis Disease Active Univers caused by caused by ity of Pseudomona Pseudomona Te krishna vidales MD aeruginosa aeruginosa An ders[facility] Acute Acute Disease Active Univers kidney kidney ity of failure failure [place] with with MD lesion of lesion of Jay rso tubular tubular n necrosis necrosis [facility] Persistent Persistent Disease Active U nivers atrial atrial it[place] of fibrill[place] fibrillati [place] on on [facility] Toxic Toxic Disease Active Univers metabolic metabolic ity of encephalop encephalop Te krishna freire MD [facility] 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 mouna Erwin MD [facility] Chronic Chronic Disease Active Univers systolic systolic ity of congestive congestive Te krishna heart heart failure failure [facility] 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 Te xaflash howe MD [facility] Other Other Disease Active Univers elevated elevated ity of white white [place] blood cell blood cell count count [facility] Electrolyt Electrolyt Disease Active U nivers e and e and ity of fluid fluid [place] disorders disorders not not [facility] elsewhere elsewhere n classified classified [facility] Anemia due Anemia, Problem Active Comm on to blood blood loss Spir it loss - [facility] Anemia Anemia due Problem Active Commo n caused by to Spirit chemothera antineopla - [id number] BPH loc w Problem Active Com mon urin Spirit obs/LUTS - [facility] [id number] Prostate Problem Active Com mon nodule Spirit - [facility] Diffuse Diffuse Problem Active Common large large Spirit B-cell B-cell - [facility] lymphoma, lymphoma, lymph lymph [facility] nodes of nodes of Medica l head, head, Center face, and face, and neck neck Anemia of Anemia due Problem Active Co mmon chronic to stage 3 Spiri t renal chronic - [facility]I failure kidney [facility] [id number] ED Problem Active Common (erectile Spirit dysfunctio - CHI n) of [facility] [id number] PSA Problem Active Common elevation Spirit - [facility] Mild Mild Problem Resolve 2018-08-06 2018-08-06 Memtavo chronic chronic d 03-27 13:34:33 13:34:33 l obstructiv obstructiv 00:00: He rmann e e 00 pulmonary pulmonary disease disease (disorder) (disorder) Resolved 03/27/2012 Problem 08/06/2018 [facility] Allergies, Adverse Reactions, Alerts Allergy Allergy Status Severity Reaction(s) Onset Inactive Treating Comm ents Source Name Type Date Date Clinician Povidone Propensi Active Rash Univer s -Iodine ty to 6 ity of adverse 00:00: [place] reaction 00 MD flash [facility] Povidone Propensi Active Hives Univer s -Iodine ty to 4 ity of adverse 00:00: [place] reaction 00 [facility] POVIDONE DRUG Active Hives Univers -IODINE INGREDI 4-13 ity of 00:00: [place] 00 [facility] povidone povidone Active RASH Common -iodine -iodine Spirit - [facility] Betadine Betadine Active Mo Crawford NO KNOWN Allergy Active [facility] Social History Social Habit Start Date Stop Date Quantity Comments Source History SDOH [facility] Alcohol Comment Medical C enter Sexual orientation [facility] MD Dereck kim [facility] Alcohol Std Drinks Medica Center History SDOH [facility] Alcohol Binge Medical Jose ter Gender identity Universit y of [facility] History of Tobacco Common Spirit - Use [facility] History of Social 2021-03-16 2021-03-16 Univers ity of function 00:00:00 00:00:00 Yaima kim [facility] Alcohol intake 2020-09-11 2020-09-[address] [facility] 00:00:00 00:00:00 non-drinker Medical Herbie garcia (finding) Tobacco use and 2020-09-07 2020-09-[address] Reina kes exposure 00:00:00 00:00:00 tobacco non-user Medical Center Tobacco Comment 2020-09-07 2020-09-07 stopped smoking Univ ersity of 00:00:00 00:00:00 15 years ago Yaima LOVE And bijan [facility] Cigarettes smoked 2020-09-07 2020-09-07 Univers ity of current (pack per 00:00:00 00:00:00 Yaima Jones ) - Reported Cancer Ce nter Cigarette 2020-09-07 2020-09-07 University of pack-years 00:00:00 00:00:00 Yaima LOVE [facility] History SDOH 2020-09-07 2020-09-[address] [facility] Alcohol Frequency 00:00:00 00:00:00 [facility] Sex Assigned At [address] [facility] St Reina kes 00:00:00 00:00:00 [facility] Smoking Status Start Date Stop Date Source Never smoked tobacco [facility] Social History 2016-06-15 16:58:56 2016-06-15 16:58:56 [facility] Medications Ordered Filled Start Stop Current Ordering Indication Dosage Frequency Signature Comments Components Source Medication Medication Date Date Medication? Clinician (SIG) Name Name [facility] Yes 1{tbl} Take 1 Un osvaldo ate 8-21 tablet by ity of (sennosides 14:36: mouth [place] -docusate 14 twice MD sodium) 8.6 daily. Herman o mg-50 mg Hold for n tablet loose Cancer stools. [facility] Yes 1{tbl} Take 1 Un osvaldo ate 8-21 tablet by ity of (sennosides 14:36: mouth [place] -docusate 14 twice MD sodium) 8.6 daily. Herman o mg-50 mg Hold for n tablet loose Cancer stools. [facility] Yes 1{tbl} Take 1 Un osvaldo ate 8-21 tablet by ity of (sennosides 14:36: mouth [place] -docusate 14 twice MD sodium) 8.6 daily. Herman o mg-50 mg Hold for n tablet loose Cancer stools. [facility] Yes 1{tbl} Take 1 Un osvaldo ate 8-21 tablet by ity of (sennosides 14:36: mouth [place] -docusate 14 twice MD sodium) 8.6 daily. Herman o mg-50 mg Hold for n tablet loose [facility]} Take 1 Un osvaldo ate 8-21 tablet by ity of (sennosides 14:36: mouth [place] -docusate 14 twice MD sodium) 8.6 daily. Herman o mg-50 mg Hold for n tablet loose [facility] stools. [facility] 1{tbl} Take 1 Un osvaldo ate 8-21 tablet by ity of (sennosides 14:36: mouth [place] -docusate 14 twice MD sodium) 8.6 daily. Herman o mg-50 mg Hold for n tablet loose Cancer stools. [facility] Yes 1{tbl} Take 1 Un osvaldo ate 8-21 tablet by ity of (sennosides 14:36: mouth [place] -docusate 14 twice MD sodium) 8.6 daily. Herman o mg-50 mg Hold for n tablet loose [facility] stools. [facility] Yes 1{tbl} Take 1 Un osvaldo ate 8-21 tablet by ity of (sennosides 14:36: mouth [place] -docusate 14 twice MD sodium) 8.6 daily. Herman o mg-50 mg Hold for n tablet loose Cancer stools. [place] entecavir Yes Hepatitis B .5mg Take 1 [...] 72 Anderso hours. n Cancer Center torsemide 2020-0 Yes Diffuse 20mg Take 1 Uni vers (DEMADEX) 8-12 high grade tablet (20 ity of 20 mg 00:00: B-cell mg) by [place] tablet 00 lymphoma mouth MD daily. Anderso Hold for n systolic Cancer blood Center pressure less than 110 mmHg. torsemide 0 Yes Diffuse 20mg Take 1 Uni vers (DEMADEX) 8-12 high grade tablet (20 ity of 20 mg 00:00: B-cell mg) by [place] tablet 00 lymphoma mouth MD daily. Anderso Hold for n systolic Cancer blood Center pressure less than 110 mmHg. torsemide 0 Yes Diffuse 20mg Take 1 Uni vers (DEMADEX) 8-12 high grade tablet (20 ity of 20 mg 00:00: B-cell mg) by [place] tablet 00 lymphoma mouth MD daily. Anderso Hold for n systolic Cancer blood Center pressure less than 110 mmHg. torsemide 0 Yes Diffuse 20mg Take 1 Uni vers (DEMADEX) 8-12 high grade tablet (20 ity of 20 mg 00:00: B-cell mg) by [place] tablet 00 lymphoma mouth MD daily. Anderso Hold for n systolic Cancer blood Center pressure less than 110 mmHg. torsemide 0 Yes Diffuse 20mg Take 1 Uni vers (DEMADEX) 8-12 high grade tablet (20 ity of 20 mg 00:00: B-cell mg) by [place] tablet 00 lymphoma mouth MD daily. Anderso Hold for n systolic Cancer blood Center pressure less than 110 mmHg. torsemide 2020-0 Yes Diffuse 20mg Take 1 Uni vers (DEMADEX) 8-12 high grade tablet (20 ity of 20 mg 00:00: B-cell mg) by [place] tablet 00 lymphoma mouth MD daily. Anderso Hold for n systolic Cancer blood Center pressure less than 110 mmHg. torsemide 2020-0 Yes Diffuse 20mg Take 1 Uni vers (DEMADEX) 8-12 high grade tablet (20 ity of 20 mg 00:00: B-cell mg) by [place] tablet 00 lymphoma mouth MD daily. Anderso Hold for n systolic Cancer blood Center pressure less than 110 mmHg. torsemide 2021-0 Yes Diffuse 20mg Take 1 Uni vers [...] mg) by Lavella s 00 lymphoma mouth every 12 Anderso [...] less than 60 beats per minute. apixaban 0 Yes Diffuse 5mg Take 1 Univ ers [...] (six) n solution hours. Cancer Center metoprolol 0 Yes Diffuse 25mg Take 1 Un osvaldo [...] (six) n solution hours. Cancer Center metoprolol 0 Yes Diffuse 25mg Take 1 Un osvaldo tartrate 8-11 high grade tablet (25 ity of (LOPRESSOR) 00:00: [place]-cell mg[place] 25 mg 00 lymphoma mouth MD tablet every 12 Anderso (twelve) n hours. Cancer Hold for Center systolic blood pressure less than 110 mmHg or heart rate less than 60 beats per minute. apixaban 0 Yes Diffuse 5mg Take 1 Univ ers (ELIQUIS) 5 8-11 high grade tablet (5 ity of mg tablet 00:00: B-cell mg) by Tracie vidales 00 lymphoma mouth MD every 12 Anderso [...] MD every 12 Anderso (twelve) n hours. [facility] ipratropium Yes Acute 3mL Inhale 1 [...] mg) [place] 00 lymphoma mouth every 12 Anderso [...] mouth MD daily. Anderso n Cancer Center entecavir 2020- No Hepatitis B .5mg Take 1 Univers (BARACLUDE) 09-22-20 carrier tablet it y of 0.5 mg 00:00: 00:00 (0.5 mg) [place] tablet 00 :00 by mouth MD daily. [facility] entecavir 2020- Hepatitis B .5mg Take 1 Univers (BARACLUDE) 09-22 08-20 carrier tablet it y of 0.5 mg 00:00: 00:00 (0.5 mg) [place] tablet 00 :00 by mouth MD daily. [facility] sodium Yes Diffuse 10mL Swish and Uni [...] 00 lymphoma by mouth MD daily. To [facility] viral Cancer infections Center . sodium Yes [...] 00 lymphoma by mouth MD daily. To [facility] prevent n viral Cancer infections Center . sodium 2020-0 Yes Diffuse 10mL Swish and [...] needed for Center nausea or vomiting. valACYclovi 0 Yes Diffuse 500mg Take 1 Univers r (VALTREX) 6-28 high grade tablet ity of 500 mg 00:00: B-cell (500 mg) [place] tablet 00 lymphoma by mouth MD daily. To [facility] prevent n viral Cancer infections Center . sodium 2020-0 Yes Diffuse 10mL Swish and Uni vers chloride-so 6-28 high grade spit 10 mL ity of dium 00:00: B-cell every 6 [place] bicarbonate 00 lymphoma (six) MD (SALT AND hours. Use Jay rso SODA) 2 n mouthwash teaspoonfu Canc er ls and Center dissolve in 1 quart (960 mL) of warm water. To prevent mouth sores ondansetron 2020-0 Yes Diffuse 8mg Take 1 U nivers [...] mg) by Tracie vidales 00 lymphoma mouth MD every 8 Anderso [...] 00 lymphoma (six) MD (SALT AND hours. Anderso SODA) Use 2 n mouthwash teaspoonfu Canc er ls [...] History of 3.125mg Take 1 Univers (COREG) 09-21- myocardial tablet ity of 3.125 mg 00:00: [...] mg tablet 00:00: 00:00 infarction mg) by [place] 00 :00 mouth twice Anderso daily. n [...] mg) [place] tablet 00 :00 by mouth twice Anderso daily. n Hold for Cancer systolic Center blood pressure less than 110 mmHg or heart rate less than 60 bpm furosemide 2020- No History of 40mg Take 1 Univers (LASIX) 40 09-21 myocardial tablet (40 ity of mg tablet 00:00: 00:00 infarction mg) by [place] 00 :00 mouth twice Anderso daily. n [...] 00 :00 not mouth MD specified today Camryn 09/16/20. n Starting Cancer on the day [...] 04 (two) Center Tab times daily. traMADoL 0 Yes 50mg Take [address] (ULTRAM) 50 6-14 by mouth Luke s mg tablet 14:12: every 6 Medic al 04 (six) Center hours as needed for Pain. sacubitriL- 0 Yes 1{tbl} Q.5D Take [address] valsartan 6-14 tablet by Lukes (Entresto) 14:12: mouth 2 Medi michael 24-26 mg 04 (two) Center Tab times daily. traMADoL 2020-0 Yes 50mg Take [address] (ULTRAM) 50 6-14 by mouth Luke s mg tablet 14:12: every 6 Medic al 04 (six) Center hours as needed for Pain. sacubitriL- 0 Yes 1{tbl} Q.5D Take 1 CH I [...] MOUTH [place] 00 DAILY MD Camryn archuleta [facility] Yes TAKE 1 Univ ers (SINGULAIR) 4-23 TABLET BY ity of 10 mg 00:00: MOUTH [place] tablet 00 DAILY MD Camryn archuleta [facility] potassium Yes 10meq Take 10 Univ ers chloride 4-23 mEq by ity of (MICRO-K) 00:00: mouth [place] 10 mEq CR 00 daily. capsule Hold for [facility] serum n potassium Cancer greater Center than 4.5 mEq/L clopidogrel Yes TAKE 1 Univ ers (PLAVIX) 75 4-23 TABLET BY ity of mg tablet 00:00: MOUTH [place] 00 DAILY MD Camryn archuleta [facility] Yes TAKE 1 Univ ers (SINGULAIR) 4-23 TABLET BY ity of 10 mg 00:00: MOUTH [place] tablet 00 DAILY MD Camryn archuleta [facility] potassium Yes 10meq Take 10 Univ ers chloride 4-23 mEq by ity of (MICRO-K) 00:00: mouth [place] 10 mEq CR 00 daily. capsule Hold for [facility] serum n potassium Cancer greater Center than 4.5 mEq/L clopidogrel Yes TAKE 1 Univ ers (PLAVIX) 75 4-23 TABLET BY ity of mg tablet 00:00: MOUTH [place] 00 DAILY MD Camryn archuleta [facility] Yes TAKE 1 Univ ers (SINGULAIR) 4-23 TABLET BY ity of 10 mg 00:00: MOUTH [place] tablet 00 DAILY MD Camryn archuleta [facility] potassium Yes 10meq Take 10 Univ ers chloride 4-23 mEq by ity of (MICRO-K) 00:00: mouth [place] 10 mEq CR 00 daily. capsule Hold for [facility] serum n potassium Cancer greater Center than 4.5 mEq/L clopidogrel Yes TAKE 1 Univ ers (PLAVIX) 75 4-23 TABLET BY ity of mg tablet 00:00: MOUTH [place] 00 DAILY MD Camryn archuleta [facility] Yes TAKE 1 Univ ers (SINGULAIR) 4-23 TABLET BY ity of 10 mg 00:00: MOUTH [place] tablet 00 DAILY MD Camryn archuleta [facility] potassium Yes 10meq Take 10 Univ ers chloride 4-23 mEq by ity of (MICRO-K) 00:00: mouth [place] 10 mEq CR 00 daily. capsule Hold for Anderso serum n potassium Cancer greater Center than 4.5 mEq/L clopidogrel Yes TAKE 1 Univ ers (PLAVIX) 75 4-23 TABLET BY ity of mg tablet 00:00: MOUTH [place] 00 DAILY MD Camryn archuleta [facility] montelukast Yes TAKE 1 Univ ers (SINGULAIR) 4-23 TABLET BY ity of 10 mg 00:00: MOUTH [place] tablet 00 DAILY MD Camryn archuleta [facility] potassium Yes 10meq Take 10 Univ ers chloride 4-23 mEq by ity of (MICRO-K) 00:00: mouth [place] 10 mEq CR 00 daily. [facility] capsule [facility] Cancer greater Center than 4.5 mEq/L clopidogrel Yes TAKE 1 Univ ers (PLAVIX) 75 4-23 TABLET BY ity of mg tablet 00:00: MOUTH [place] 00 DAILY MD Camryn archuleta [facility] montelukast Yes TAKE 1 Univ ers (SINGULAIR) 4-23 TABLET BY ity of 10 mg 00:00: MOUTH [place] tablet 00 DAILY MD Camryn archuleta [facility] potassium Yes 10meq Take 10 Univ ers chloride 4-23 mEq by ity of (MICRO-K) 00:00: mouth [place] 10 mEq CR 00 daily. capsule [facility] serum [facility] potassium Cancer greater Center than 4.5 mEq/L clopidogrel Yes TAKE 1 Univ ers (PLAVIX) 75 4-23 TABLET BY ity of mg tablet 00:00: MOUTH [place] 00 DAILY MD Camryn archuleta [facility] montelukast Yes TAKE 1 Univ ers (SINGULAIR) 4-23 TABLET BY ity of 10 mg 00:00: MOUTH [place] tablet 00 DAILY MD Camryn archuleta [facility] potassium Yes 10meq Take 10 Univ ers chloride 4-23 mEq by ity of (MICRO-K) 00:00: mouth [place] 10 mEq CR 00 daily. capsule Hold for Anderso serum n potassium Cancer greater Center than 4.5 mEq/L clopidogrel Yes TAKE 1 Univ ers (PLAVIX) 75 4-23 TABLET BY ity of mg tablet 00:00: MOUTH [place] 00 DAILY [facility] montelukast Yes TAKE 1 Univ ers (SINGULAIR) 4-23 TABLET BY ity of 10 mg 00:00: MOUTH [place] tablet 00 DAILY [facility] potassium Yes 10meq Take 10 Univ ers chloride 4-23 mEq by ity of (MICRO-K) 00:00: mouth [place] 10 mEq CR 00 daily. capsule Hold for [facility] potassium [facility] than 4.5 mEq/L [facility] TAKE 1 Univ ers n (LIPITOR) 4-13 TABLET BY ity of 80 mg 00:00: MOUTH [place] tablet 00 DAILY AT [facility] [place] atorvastati Yes TAKE 1 Univ ers n (LIPITOR) 4-13 TABLET BY ity of 80 mg 00:00: MOUTH [place] tablet 00 DAILY AT [facility] [place] atorvastati Yes TAKE 1 Univ ers n (LIPITOR) 4-13 TABLET BY ity of 80 mg 00:00: MOUTH [place] tablet 00 DAILY AT [facility] [place] atorvastati Yes TAKE 1 Univ ers n (LIPITOR) 4-13 TABLET BY ity of 80 mg 00:00: MOUTH [place] tablet 00 DAILY AT [facility] [place] atorvastati Yes TAKE 1 Univ ers n (LIPITOR) 4-13 TABLET BY ity of 80 mg 00:00: MOUTH [place] tablet 00 DAILY AT [facility] [place] atorvastati Yes TAKE 1 Univ ers n (LIPITOR) 4-13 TABLET BY ity of 80 mg 00:00: MOUTH [place] tablet 00 DAILY AT [facility] [place] atorvastati Yes TAKE 1 Univ ers n (LIPITOR) 4-13 TABLET BY ity of 80 mg 00:00: MOUTH [place] tablet 00 DAILY AT [facility] [place] atorvastati Yes TAKE 1 Univ ers n (LIPITOR) 4-13 TABLET BY ity of 80 mg 00:00: MOUTH [place] tablet 00 DAILY AT MD BEDTIME Camryn archuleta [facility] levothyroxi 0 Yes TAKE 1 Univ ers ne 4-08 TABLET BY ity of (SYNTHROID, 00:00: MOUTH [place] LEVOTHROID) 00 DAILY 25 mcg [facility] 2020-0 Yes 5mg Take 5 mg U nivers mg tab 4-08 by mouth ity of 00:00: daily. MD Camryn archuleta [facility] levothyroxi 2020-0 Yes TAKE 1 Univ ers ne 4-08 TABLET BY ity of (SYNTHROID, 00:00: MOUTH [place] LEVOTHROID) 00 DAILY 25 mcg Anderso tablet n [facility] 5 2020-0 Yes 5mg Take 5 mg U nivers mg tab 4-08 by mouth ity of 00:00: daily. MD Camryn archuleta [facility] levothyroxi 0 Yes TAKE 1 Univ ers ne 4-08 TABLET BY ity of (SYNTHROID, 00:00: MOUTH [place] LEVOTHROID) 00 DAILY 25 mcg [facility]-0 Yes 5mg Take 5 mg U nivers mg tab 4-08 by mouth ity of 00:00: daily. MD Camryn archuleta [facility] levothyroxi 0 Yes TAKE 1 Univ ers ne 4-08 TABLET BY ity of (SYNTHROID, 00:00: MOUTH [place] LEVOTHROID) 00 DAILY 25 mcg [facility] 2020-0 Yes 5mg Take 5 mg U nivers mg tab 4-08 by mouth ity of 00:00: daily. MD Carmyn archuleta [facility] levothyroxi 0 Yes TAKE 1 Univ ers ne 4-08 TABLET BY ity of (SYNTHROID, 00:00: MOUTH [place] LEVOTHROID) 00 DAILY 25 mcg [facility] 2020-0 Yes 5mg Take 5 mg U nivers mg tab 4-08 by mouth ity of 00:00: daily. MD Camryn archuleta [facility] levothyroxi 0 Yes TAKE 1 Univ ers ne 4-08 TABLET BY ity of (SYNTHROID, 00:00: MOUTH [place] LEVOTHROID) 00 DAILY 25 mcg [facility] tablet n [facility] 2020-0 Yes 5mg Take 5 mg U nivers mg tab 4-08 by mouth ity of 00:00: daily. MD [facility]ryn [facility] levothyroxi 2020-0 Yes TAKE 1 Univ ers ne 4-08 TABLET BY ity of (SYNTHROID, 00:00: MOUTH [place] LEVOTHROID) 00 DAILY 25 mcg [facility] tablet n [facility] 5 2020-0 Yes 5mg Take 5 mg U nivers mg tab 4-08 by mouth ity of 00:00: daily. MD Camryn [facility] levothyroxi 2020-0 Yes TAKE 1 Univ ers ne 4-08 TABLET BY ity of (SYNTHROID, 00:00: MOUTH [place] LEVOTHROID) 00 DAILY 25 mcg Anderso tablet n [facility] [place] [facility] 5 2020-0 Yes 5mg Take 5 mg U nivers mg tab 4-08 by mouth ity of 00:00: daily. [place] MD Camryn arch[facility] rOPINIRole 2020-0 Yes 1mg Take 1 mg Un osvaldo (REQUIP) 1 3-24 by mouth 2 ity of mg tablet 00:00: (two) [place] 00 times a MD day as Anderso needed n (restless Cancer legs). [place] rOPINIRole 2020-0 Yes 1mg Take 1 mg Un [facility] (REQUIP) 1 3-24 by mouth 2 ity of mg tablet 00:00: (two) [place] 00 times a MD day as Anderso needed n (restless Cancer legs). [place] rOPINIRole 2020-0 Yes 1mg Take 1 mg Un [facility]do (REQUIP) 1 3-24 by mouth 2 ity of mg tablet 00:00: (two) [place] 00 times a MD day as Anderso needed n (restless Cancer legs). [place] rOPINIRole 2021-0 Yes 1mg Take 1 mg Un [facility]do (REQUIP) 1 3-24 by mouth 2 ity of mg tablet 00:00: (two) [place] 00 times a MD day as Anderso needed n (restless Cancer legs). [place] rOPINIRole 2021-0 Yes 1mg Take 1 mg Un [facility]do (REQUIP) 1 3-24 by mouth 2 ity of mg tablet 00:00: (two) [place] 00 times a MD day as Anderso needed n (restless Cancer legs). [place] rOPINIRole 0 Yes 1mg Take 1 mg Un os[facility]do (REQUIP) 1 3-24 by mouth 2 ity of mg tablet 00:00: (two) [place] 00 times a MD day as Anderso needed n (restless Cancer legs). [place] rOPINIRole 0 Yes 1mg Take 1 mg Un os[facility]do (REQUIP) 1 3-24 by mouth 2 ity of mg tablet 00:00: (two) [place] 00 times a MD day as Anderso needed n (restless Cancer legs). [place] rOPINIRole Yes 1mg Take 1 mg Un osvaldo (REQUIP) 1 3-24 by mouth 2 ity of mg tablet 00:00: (two) [place] 00 times a MD day as Anderso needed n (restless Cancer legs). [place] aspirin 81 2020-0 202- No 81mg Take 81 mg Univers mg EC 04-27 by mouth ity of tablet 00:00: 00:00 daily. [place] [facility]-0 2020- No 81mg Take 81 mg Univers mg EC 04-27 by mouth ity of tablet 00:00: 00:00 daily. [place] 00 [facility] 2020-0 2020- No 81mg Take 81 mg Univers mg EC 04-27 by mouth ity of tablet 00:00: 00:00 daily. [place] 00 :00 MD Camryn archuleta [facility] pantoprazol 2020- Yes 40mg Take 40 mg Univers e 1-04 by mouth ity of (PROTONIX) 00:00: daily with [place] 40 mg EC 00 breakfast. MD lluvia [facility] pantoprazol 2019- Yes 40mg Take 40 mg Univers e 1-04 by mouth ity of (PROTONIX) 00:00: daily with [place] 40 mg EC 00 breakfast. MD lluvia [facility] pantoprazol 2019- Yes 40mg Take 40 mg Univers e 1-04 by mouth ity of (PROTONIX) 00:00: daily with [place] 40 mg EC 00 breakfast. MD teixeira [facility] pantoprazol 2019- Yes 40mg Take 40 mg Univers e -04 by mouth ity of (PROTONIX) 00:00: daily with [place] 40 mg EC 00 breakfast. [facility]03 Yes 40mg Take 40 mg Univers e -04 by mouth ity of (PROTONIX) 00:00: daily with [place] 40 mg EC 00 breakfast. [facility]ol 2019-03 Yes 40mg Take 40 mg Univers e -04 by mouth ity of (PROTONIX) 00:00: daily with [place] 40 mg EC 00 breakfast. MD teixeira [facility] pantoprazol 2019-03 Yes 40mg Take 40 mg Univers e -04 by mouth ity of (PROTONIX) 00:00: daily with [place] 40 mg EC 00 breakfast. [facility]03 Yes 40mg Take 40 mg Univers e -04 by mouth ity of (PROTONIX) 00:00: daily with [place] 40 mg EC 00 breakfast. MD lluvia [facility] levocetiriz 2020-0 Yes 5mg Take 5 mg U nivers ine (XYZAL) 7-16 by mouth ity of 5 MG tablet 00:00: every [place] 00 evening. MD Camryn archuleta [facility] levocetiriz 2020-0 Yes 5mg Take 5 mg U nivers ine (XYZAL) 7-16 by mouth ity of 5 MG tablet 00:00: every [place] 00 evening. MD Camryn archuleta [facility] levocetiriz 2020-0 Yes 5mg Take 5 mg U nivers ine (XYZAL) 7-16 by mouth ity of 5 MG tablet 00:00: every [place] 00 evening. MD Camryn archuleta [facility] levocetiriz 2020-0 Yes 5mg Take 5 mg U nivers ine (XYZAL) 7-16 by mouth ity of 5 MG tablet 00:00: every [place] 00 evening. MD Camryn archuleta [facility] levocetiriz 2020-0 Yes 5mg Take 5 mg U nivers ine (XYZAL) 7-16 by mouth ity of 5 MG tablet 00:00: every [place] 00 evening. MD Camryn [facility] levocetiriz 2020-0 Yes 5mg Take 5 mg U nivers ine (XYZAL) 7-16 by mouth ity of 5 MG tablet 00:00: every 00 evening. MD Camryn archuleta [facility] levocetiriz 2020-0 Yes 5mg Take 5 mg U nivers ine (XYZAL) 7-16 by mouth ity of 5 MG tablet 00:00: every 00 evening. MD Camryn archuleta [facility] levocetiriz 2020-0 Yes 5mg Take 5 mg U nivers ine (XYZAL) 7-16 by mouth ity of 5 MG tablet 00:00: every [place] 00 evening. MD Camryn archuleta [facility] albuterol 2020-0 Yes 1{puff} Inhale 1-2 Univers [...] or shortness of breath. tiotropium 2020-0 Yes [id number] 18ug Inhale 1 Univers (SPIRIVA 4-16 capsule ity of WITH 00:00: daily. [place] HANDIHALER) 00 Medical 18 mcg Branch inhalation tiotropium 2020-0 Yes [id number] 18ug Inhale 1 Univers (SPIRIVA 4-16 capsule ity of WITH 00:00: daily. [place] HANDIHALER) 00 Medical 18 mcg Branch inhalation tiotropium 2020-0 Yes [id number] 18ug Inhale 1 Univers (SPIRIVA 4-16 capsule ity of WITH 00:00: daily. [place] HANDIHALER) 00 Medical 18 mcg Branch inhalation tiotropium 2020-0 Yes [id number] 18ug Inhale 1 Univers (SPIRIVA 4-16 capsule ity of WITH 00:00: daily. [place] HANDIHALER) 00 Medical 18 mcg Branch inhalation tiotropium 2020-0 Yes [id number] 18ug Inhale 1 Univers (SPIRIVA 4-16 capsule ity of WITH 00:00: daily. [place] HANDIHALER) 00 Medical 18 mcg Branch inhalation tiotropium 2020-0 Yes [id number] 18ug Inhale 1 Univers (SPIRIVA 4-16 capsule ity of WITH 00:00: daily. [place] HANDIHALER) 00 Medical 18 mcg Branch inhalation tiotropium 2020-0 Yes [id number] 18ug Inhale 1 Univers (SPIRIVA 4-16 capsule ity of WITH 00:00: daily. [place] HANDIHALER) 00 Medical 18 mcg Branch inhalation tiotropium 2020-0 Yes [id number] 18ug Inhale 1 Univers (SPIRIVA 4-16 capsule ity of WITH 00:00: daily. [place] HANDIHALER) 00 Medical 18 mcg Branch inhalation tiotropium 2020-0 Yes [id number] 18ug Inhale 1 Univers (SPIRIVA 4-16 capsule ity of WITH 00:00: daily. [place] HANDIHALER) 00 Medical 18 mcg Branch inhalation tiotropium 2020-0 Yes [id number] 18ug Inhale 1 Univers (SPIRIVA 4-16 capsule ity of WITH 00:00: daily. [place] HANDIHALER) 00 Medical 18 mcg Branch inhalation tiotropium 2020-0 Yes [id number] 18ug Inhale 1 Univers (SPIRIVA 4-16 capsule ity of WITH 00:00: daily. [place] HANDIHALER) 00 Medical 18 mcg Branch inhalation tiotropium 2020-0 Yes [id number] 18ug Inhale 1 Univers (SPIRIVA 4-16 capsule ity of WITH 00:00: daily. [place] HANDIHALER) 00 Medical 18 mcg Branch inhalation pantoprazol 2020-0 Yes [id number] 40mg Take 1 Univers e 1-30 tablet by ity of (PROTONIX) 00:00: mouth [place] 40 mg EC 00 daily. Medical tablet Branch pantoprazol 2020-0 Yes [id number] 40mg Take 1 Univers e 1-30 tablet by ity of (PROTONIX) 00:00: mouth [place] 40 mg EC 00 daily. Medical tablet Branch pantoprazol 2020-0 Yes [id number] 40mg Take 1 Univers e 1-30 tablet by ity of (PROTONIX) 00:00: mouth [place] 40 mg EC 00 daily. Medical tablet Branch fluticasone 2020-0 Yes 2{spray Use 2 Un [facility] propionate 1-30 } Sprays in ity of 50 00:00: each [place] mcg/actuati 00 nostril Medic al on nasal daily. Branch spray pantoprazol 2020-0 Yes [id number] 40mg Take 1 Univers e 1-30 tablet by ity of (PROTONIX) 00:00: mouth [place] 40 mg EC 00 daily. Medical tablet Branch fluticasone 2020-0 Yes 2{spray Use 2 Un [place] propionate 1-30 } Sprays in ity of 50 00:00: each [place] mcg/actuati 00 nostril Medic al on nasal daily. Branch spray pantoprazol 2020-0 Yes [id number] 40mg Take 1 Univers e 1-30 tablet by ity of (PROTONIX) 00:00: mouth [place] 40 mg EC 00 daily. Medical tablet Branch fluticasone 2020-0 Yes 2{spray Use 2 Un [place] propionate 1-30 } Sprays in ity of 50 00:00: each [place] mcg/actuati 00 nostril Medic al on nasal daily. Branch spray pantoprazol 2020-0 Yes [id number] 40mg Take 1 Univers e 1-30 tablet by ity of (PROTONIX) 00:00: mouth [place] 40 mg EC 00 daily. Medical tablet Branch fluticasone 2020-0 Yes 2{spray Use 2 Un [place] propionate 1-30 } Sprays in ity of 50 00:00: each [place] mcg/actuati 00 nostril Medic al on nasal daily. Branch spray pantoprazol 2020-0 Yes [id number] 40mg Take 1 Univers e 1-30 tablet by ity of (PROTONIX) 00:00: mouth [place] 40 mg EC 00 daily. Medical tablet Branch fluticasone 2020-0 Yes 2{spray Use 2 Un [place] propionate 1-30 } Sprays in ity of 50 00:00: each [place] mcg/actuati 00 nostril Medic al on nasal daily. Branch spray pantoprazol 2020-0 Yes [id number] 40mg Take 1 Univers e 1-30 tablet by ity of (PROTONIX) 00:00: mouth [place] 40 mg EC 00 daily. Medical tablet Branch fluticasone 2020-0 Yes 2{spray Use 2 Un [place] propionate 1-30 } Sprays in ity of 50 00:00: each [place] mcg/actuati 00 nostril Medic al on nasal daily. Branch spray pantoprazol 2020-0 Yes [id number] 40mg Take 1 Univers e 1-30 tablet by ity of (PROTONIX) 00:00: mouth [place] 40 mg EC 00 daily. Medical tablet Branch fluticasone 2020-0 Yes 2{spray Use 2 Un [place] propionate 1-30 } Sprays in ity of 50 00:00: each [place] mcg/actuati 00 nostril Medic al on nasal daily. Branch spray pantoprazol 2020-0 Yes [id number] 40mg Take 1 Univers e 1-30 tablet by ity of (PROTONIX) 00:00: mouth [place] 40 mg EC 00 daily. Medical tablet Branch fluticasone 2020-0 Yes 2{spray Use 2 Un [place] propionate 1-30 } Sprays in ity of 50 00:00: each [place] mcg/actuati 00 nostril Medic al on nasal daily. Branch spray pantoprazol 2020-0 Yes [id number] 40mg Take 1 Univers e 1-30 tablet by ity of (PROTONIX) 00:00: mouth [place] 40 mg EC 00 daily. Medical tablet Branch fluticasone 2020-0 Yes 2{spray Use 2 Un [place] propionate 1-30 } Sprays in ity of 50 00:00: each [place] mcg/actuati 00 nostril Medic al on nasal daily. Branch spray pantoprazol 2020-0 Yes [id number] 40mg Take 1 Univers e 1-30 tablet by ity of (PROTONIX) 00:00: mouth [place] 40 mg EC 00 daily. Medical tablet Branch fluticasone 2020-0 Yes 2{spray Use 2 Un [place] propionate 1-30 } Sprays in ity of 50 00:00: each [place] mcg/actuati 00 nostril Medic al on nasal daily. Branch spray pantoprazol 2020-0 Yes [id number] 40mg Take 1 Univers e 1-30 tablet by ity of (PROTONIX) 00:00: mouth [place] 40 mg EC 00 daily. Medical tablet Branch fluticasone 2020-0 Yes 2{spray Use 2 Un [place] propionate 1-30 } Sprays in ity of 50 00:00: each [place] mcg/actuati 00 nostril Medic al on nasal daily. Branch spray pantoprazol 2020-0 Yes [id number] 40mg Take 1 Univers e 1-30 tablet by ity of (PROTONIX) 00:00: mouth [place] 40 mg EC 00 daily. Medical tablet Branch fluticasone 2020-0 Yes 2{spray Use 2 Un [place] propionate 1-30 } Sprays in ity of 50 00:00: each [place] mcg/actuati 00 nostril Medic al on nasal daily. Branch spray pantoprazol 2019- Yes [id number] 40mg Take 1 Univers e 1-30 tablet by ity of (PROTONIX) 00:00: mouth [place] 40 mg EC 00 daily. Medical tablet Branch fluticasone 2019- Yes 2{spray Use 2 [facility] [place] propionate 1-30 } Sprays in ity of 50 00:00: each [place] mcg/actuati 00 nostril Medic al on nasal daily. Branch spray fluticasone 2018- Yes [id number] 1{puff} Inhale 1 Univers -salmeterol 5-23 Puff every it y of (ADVAIR 00:00: 12 [place] DISKUS) 00 (twelve) Medical 250-50 hours. Branch mcg/dose inhalation disk fluticasone 2018- Yes [id number] 1{puff} Inhale 1 Univers -salmeterol 5-23 Puff every it y of (ADVAIR 00:00: 12 [place] DISKUS) 00 (twelve) Medical 250-50 hours. Branch mcg/dose inhalation disk fluticasone 2018- Yes [id number] 1{puff} Inhale 1 Univers -salmeterol 5-23 Puff every it y of (ADVAIR 00:00: 12 [place] DISKUS) 00 (twelve) Medical 250-50 hours. Branch mcg/dose inhalation disk fluticasone 2018- Yes [id number] 1{puff} Inhale 1 Univers -salmeterol 5-23 Puff every it y of (ADVAIR 00:00: 12 [place] DISKUS) 00 (twelve) Medical 250-50 hours. Branch mcg/dose inhalation disk fluticasone 2019- Yes [id number] 1{puff} Inhale 1 Univers -salmeterol 5-23 Puff every it y of (ADVAIR 00:00: 12 [place] DISKUS) 00 (twelve) Medical 250-50 hours. Branch mcg/dose inhalation disk fluticasone 2019- Yes [id number] 1{puff} Inhale 1 Univers -salmeterol 5-23 Puff every it y of (ADVAIR 00:00: 12 [place] DISKUS) 00 (twelve) Medical 250-50 hours. Branch mcg/dose inhalation disk fluticasone 2019- Yes [id number] 1{puff} Inhale 1 Univers -salmeterol 5-23 Puff every it y of (ADVAIR 00:00: 12 [place] DISKUS) 00 (twelve) Medical 250-50 hours. Branch mcg/dose inhalation disk fluticasone 2019-0 Yes [id number] 1{puff} Inhale 1 Univers -salmeterol 5-23 Puff every it y of (ADVAIR 00:00: 12 [place] DISKUS) 00 (twelve) Medical 250-50 hours. Branch mcg/dose inhalation disk fluticasone 2019-0 Yes [id number] 1{puff} Inhale 1 Univers -salmeterol 5-23 Puff every it y of (ADVAIR 00:00: 12 [place] DISKUS) 00 (twelve) Medical 250-50 hours. Branch mcg/dose inhalation disk fluticasone 2018-0 Yes [id number] 1{puff} Inhale 1 Univers -salmeterol 5-23 Puff every it y of (ADVAIR 00:00: 12 [place] DISKUS) 00 (twelve) Medical 250-50 hours. Branch mcg/dose inhalation disk fluticasone 2019- Yes [id number] 1{puff} Inhale 1 Univers -salmeterol 5-23 Puff every it y of (ADVAIR 00:00: 12 [place] DISKUS) 00 (twelve) Medical 250-50 hours. Branch mcg/dose inhalation disk fluticasone 2018-0 Yes [id number] 1{puff} Inhale 1 Univers -salmeterol 5-23 Puff every it y of (ADVAIR 00:00: 12 [place] DISKUS) 00 (twelve) Medical 250-50 hours. Branch mcg/dose inhalation disk fluticasone 2019-0 Yes [id number] 1{puff} Inhale 1 Univers -salmeterol 5-23 Puff every it y of (ADVAIR 00:00: 12 [place] DISKUS) 00 (twelve) Medical 250-50 hours. Branch mcg/dose inhalation disk fluticasone 2019-0 Yes [id number] 1{puff} Inhale 1 Univers -salmeterol 5-23 Puff every it y of (ADVAIR 00:00: 12 [place] DISKUS) 00 (twelve) Medical 250-50 hours. Branch mcg/dose inhalation disk fluticasone 2019-0 Yes [id number] 1{puff} Inhale 1 Univers -salmeterol 5-23 Puff every it y of (ADVAIR 00:00: 12 [place] DISKUS) 00 (twelve) Medical 250-50 hours. Branch mcg/dose inhalation disk fluticasone 2019- Yes [id number] 1{puff} Inhale 1 Univers -salmeterol 5-23 Puff every it y of (ADVAIR 00:00: 12 [place] DISKUS) 00 (twelve) Medical 250-50 hours. Branch mcg/dose inhalation disk fluticasone 2018- Yes [id number] 1{puff} Inhale 1 Univers -salmeterol 5-23 Puff every it y of (ADVAIR 00:00: 12 [place] DISKUS) 00 (twelve) Medical 250-50 hours. Branch mcg/dose inhalation disk fluticasone 2018- Yes [id number] 1{puff} Inhale 1 Univers -salmeterol 5-23 Puff every it y of (ADVAIR 00:00: 12 [place] DISKUS) 00 (twelve) Medical 250-50 hours. Branch mcg/dose inhalation disk fluticasone 2018- Yes [id number] 1{puff} Inhale 1 Univers -salmeterol 5-23 Puff every it y of (ADVAIR 00:00: 12 [place] DISKUS) 00 (twelve) Medical 250-50 hours. Branch mcg/dose inhalation disk fluticasone 2018- Yes [id number] 1{puff} Inhale 1 Univers -salmeterol 5-23 Puff every it y of (ADVAIR 00:00: 12 [place] DISKUS) 00 (twelve) Medical 250-50 hours. Branch mcg/dose inhalation disk fluticasone 2019- Yes [id number] 1{puff} Inhale 1 Univers -salmeterol 5-23 Puff every it y of (ADVAIR 00:00: 12 [place] DISKUS) 00 (twelve) Medical 250-50 hours. Branch mcg/dose inhalation disk fluticasone 2019- Yes [id number] 1{puff} Inhale 1 Univers -salmeterol 5-23 Puff every it y of (ADVAIR 00:00: 12 [place] DISKUS) 00 (twelve) Medical 250-50 hours. Branch mcg/dose inhalation disk clopidogrel 2017- Yes TK 1 T PO U nivers 75 mg 0-11 QD ity of tablet 00:00: [place] [facility] clopidogrel 2017 Yes TK 1 T PO U nivers 75 mg 0-11 QD ity of tablet 00:00: [place] [facility] clopidogrel 2017 Yes TK 1 T PO U nivers 75 mg 0-11 QD ity of tablet 00:00: [place] [facility] clopidogrel 2017 Yes TK 1 T PO U nivers 75 mg 0-11 QD ity of tablet 00:00: [place] [facility] clopidogrel 2017 Yes TK 1 T PO U nivers 75 mg 0-11 QD ity of tablet 00:00: [place] [facility] clopidogrel 2017 Yes TK 1 T PO U nivers 75 mg 0-11 QD ity of tablet 00:00: [address] clopidogrel 2017 Yes TK 1 T PO U nivers 75 mg 0-11 QD ity of tablet 00:00: [address] clopidogrel 2017 Yes TK 1 T PO U nivers 75 mg 0-11 QD ity of tablet 00:00: [address] clopidogrel 2017 Yes TK 1 T PO U nivers 75 mg 0-11 QD ity of tablet 00:00: [address] clopidogrel 2017 Yes TK 1 T PO U nivers 75 mg 0-11 QD ity of tablet 00:00: [address] clopidogrel 2017 Yes TK 1 T PO U nivers 75 mg 0-11 QD ity of tablet 00:00: [address] clopidogrel 2017 Yes TK 1 T PO U nivers 75 mg 0-11 QD ity of tablet 00:00: [place] [facility] clopidogrel 2017 Yes TK 1 T PO U nivers 75 mg 0-11 QD ity of tablet 00:00: [place] [facility] clopidogrel 2017 Yes TK 1 T PO U nivers 75 mg 0-11 QD ity of tablet 00:00: [place] [facility] clopidogrel 2017 Yes TK 1 T PO U nivers 75 mg 0-11 QD ity of tablet 00:00: [place] [facility] clopidogrel 2017 Yes TK 1 T PO U nivers 75 mg 0-11 QD ity of tablet 00:00: [place] [facility] clopidogrel 2017 Yes TK 1 T PO U nivers 75 mg 0-11 QD ity of tablet 00:00: [address] Branch clopidogrel 2017- Yes TK 1 T PO U nivers 75 mg 0-11 QD ity of tablet 00:00: [place] [facility] Branch clopidogrel 2016- Yes TK 1 T PO U nivers 75 mg 0-11 QD ity of tablet 00:00: [place] [facility] Branch clopidogrel 2016- Yes TK 1 T PO U nivers 75 mg 0-11 QD ity of tablet 00:00: [place] [facility] Branch clopidogrel 2017- Yes TK 1 T PO U nivers 75 mg 0-11 QD ity of tablet 00:00: [place] [facility] Branch clopidogrel 2017- Yes TK 1 T PO U nivers 75 mg 0-11 QD ity of tablet 00:00: [place] [facility] Branch aspirin 81 2017- Yes TK 1 T PO Un osvaldo mg EC 9-29 D ity of tablet 00:00: [place] [facility] Branch aspirin 81 2017-0 Yes TK 1 T PO Un os[place] mg EC 9-29 D ity of tablet 00:00: [place] [facility] Branch aspirin 81 2017-0 Yes TK 1 T PO Un os[place] mg EC 9-29 D ity of tablet 00:00: [place] [facility] Branch aspirin 81 2017-0 Yes TK 1 T PO Un [place] mg EC 9-29 D ity of tablet 00:00: [place] [facility] Branch aspirin 81 2017-0 Yes TK 1 T PO Un os[place] mg EC 9-29 D ity of tablet 00:00: [place] [facility] Branch aspirin 81 2017-0 Yes TK 1 T PO Un os[place] mg EC 9-29 D ity of tablet 00:00: [place] [facility] aspirin 81 2017-0 Yes TK 1 T PO Un os[place] mg EC 9-29 D ity of tablet 00:00: [place] [facility] Branch aspirin 81 2017-0 Yes TK 1 T PO Un osval[place] mg EC 9-29 D ity of tablet 00:00: [place] [facility] aspirin 81 2017-0 Yes TK 1 T PO Un [place] mg EC 9-29 D ity of tablet 00:00: [place] [facility] aspirin 81 2017-0 Yes TK 1 T PO Un [place] mg EC 9-29 D ity of tablet 00:00: [place] [facility] aspirin 81 2017-0 Yes TK 1 T PO Un [place] mg EC 9-29 D ity of tablet 00:00: [place] [facility] aspirin 81 2017-0 Yes TK 1 T PO Un [place] mg EC - D ity of tablet 00:00: [place] [facility] aspirin 81 2017-0 Yes TK 1 T PO Un [place] mg EC 12-23 D ity of tablet 00:00: [place] [facility] aspirin 81 2017-0 Yes TK 1 T PO Un [place] mg EC 12-23 D ity of tablet 00:00: [place] [facility] aspirin 81 2017-0 Yes TK 1 T PO Un [place] mg EC 9 D ity of tablet 00:00: [place] [facility] aspirin 81 2017- Yes TK 1 T PO Un [place] mg EC 12-23 D ity of tablet 00:00: [place] [facility] aspirin 81 2017- Yes TK 1 T PO Un [place] mg EC 12-23 D ity of tablet 00:00: [place] [facility] aspirin 81 2017- Yes TK 1 T PO Un [place] mg EC 12-23 D ity of tablet 00:00: [place] [facility] aspirin 81 2017- Yes TK 1 T PO Un [place] mg EC 12-23 D ity of tablet 00:00: [place] [facility] aspirin 81 2017- Yes TK 1 T PO Un [place] mg EC 12-23 D ity of tablet 00:00: [place] [facility] aspirin 81 2017-0 Yes TK 1 T PO Un [place] mg EC 12-23 D ity of tablet 00:00: [place] [facility] aspirin 81 2017- Yes TK 1 T PO Un [place] mg EC - D ity of tablet 00:00: [place] [facility] traMADOL 50 2017- Yes TK 1 T PO U nivers mg tablet 8-18 TID PRN ity of 00:00: [place] [facility] traMADOL 50 2017 Yes TK 1 T PO U nivers mg tablet 8-18 TID PRN ity of 00:00: [place] [facility] traMADOL 50 2017- Yes TK 1 T PO U nivers mg tablet 8-18 TID PRN ity of 00:00: [facility] traMADOL 50 Yes TK 1 T PO U nivers mg tablet 8-18 TID PRN ity of 00:00: [facility] traMADOL 50 Yes TK 1 T PO U nivers mg tablet 8-18 TID PRN ity of 00:00: [facility] traMADOL 50 Yes TK 1 T PO U nivers mg tablet 8-18 TID PRN ity of 00:00: [facility] traMADOL 50 Yes TK 1 T PO U nivers mg tablet 8-18 TID PRN ity of 00:00: [facility] traMADOL 50 Yes TK 1 T PO U nivers mg tablet 8-18 TID PRN ity of 00:00: [facility] traMADOL 50 Yes TK 1 T PO U nivers mg tablet 8-18 TID PRN ity of 00:00: [facility] traMADOL 50 Yes TK 1 T PO U nivers mg tablet 8-18 TID PRN ity of 00:00: [facility] traMADOL 50 Yes TK 1 T PO U nivers mg tablet 8-18 TID PRN ity of 00:00: [facility] traMADOL 50 Yes TK 1 T PO U nivers mg tablet 8-18 TID PRN ity of 00:00: [facility] traMADOL 50 Yes TK 1 T PO U nivers mg tablet 8-18 TID PRN ity of 00:00: [facility] traMADOL 50 Yes TK 1 T PO U nivers mg tablet 8-18 TID PRN ity of 00:00: [facility] traMADOL 50 Yes TK 1 T PO U nivers mg tablet 8-18 TID PRN ity of 00:00: [facility] traMADOL 50 Yes TK 1 T PO U nivers mg tablet 8-18 TID PRN ity of 00:00: [facility] traMADOL 50 Yes TK 1 T PO U nivers mg tablet 8-18 TID PRN ity of 00:00: [facility] traMADOL 50 Yes TK 1 T PO U nivers mg tablet 8-18 TID PRN ity of 00:00: [facility] traMADOL 50 Yes TK 1 T PO U nivers mg tablet 8-18 TID PRN ity of 00:00: [facility] traMADOL 50 Yes TK 1 T PO U nivers mg tablet 8-18 TID PRN ity of 00:00: [facility] traMADOL 50 Yes TK 1 T PO U nivers mg tablet 8-18 TID PRN ity of 00:00: [facility] traMADOL 50 Yes TK 1 T PO U nivers mg tablet 8-18 TID PRN ity of 00:00: [facility] metoprolol 2017 Yes TK 1 T PO Un osvaldo succinate 8-09 QD ity of XL 25 mg 24 00:00: [place] hr tablet [facility] torsemide Yes 10mg Take 10 mg Un osvaldo 10 mg 8-09 by mouth ity of tablet 00:00: daily. [facility] atorvastati Yes TK 1 T PO U nivers n 40 mg 8-09 QD ity of tablet 00:00: [facility] metoprolol Yes TK 1 T PO Un osvaldo succinate 8-09 QD ity of XL 25 mg 24 00:00: [place] hr tablet [facility] torsemide Yes 10mg Take 10 mg Un osvaldo 10 mg 8-09 by mouth ity of tablet 00:00: daily. [facility] atorvastati Yes TK 1 T PO U nivers n 40 mg 8-09 QD ity of tablet 00:00: [facility] metoprolol Yes TK 1 T PO Un osvaldo succinate 8-09 QD ity of XL 25 mg 24 00:00: [place] hr tablet [facility] torsemide Yes 10mg Take 10 mg Un osvaldo 10 mg 8-09 by mouth ity of tablet 00:00: daily. [facility] atorvastati Yes TK 1 T PO U nivers n 40 mg 8-09 QD ity of tablet 00:00: [place] [facility] metoprolol 2017 Yes TK 1 T PO Un osvaldo succinate 8-09 QD ity of XL 25 mg 24 00:00: [place] hr tablet [facility] torsemide Yes 10mg Take 10 mg Un osvaldo 10 mg 8-09 by mouth ity of tablet 00:00: daily. [facility] atorvastati Yes TK 1 T PO U nivers n 40 mg 8-09 QD ity of tablet 00:00: [facility] metoprolol 2017 Yes TK 1 T PO Un osvaldo succinate 8-09 QD ity of XL 25 mg 24 00:00: [place] hr tablet [facility] torsemide [id number] Yes 10mg Take 10 mg Un osvaldo 10 mg 8-09 by mouth ity of tablet 00:00: daily. [place] [facility] atorvastati 2017 Yes TK 1 T PO U nivers n 40 mg 8-09 QD ity of tablet 00:00: [place] [facility] metoprolol 2017 Yes TK 1 T PO Un osvaldo succinate 8-09 QD ity of XL 25 mg 24 00:00: [place] hr tablet [facility] torsemide Yes 10mg Take 10 mg Un osvaldo 10 mg 8-09 by mouth ity of tablet 00:00: daily. [facility] atorvastati Yes TK 1 T PO U nivers n 40 mg 8-09 QD ity of tablet 00:00: [place] [facility] metoprolol 2017 Yes TK 1 T PO Un osvaldo succinate 8-09 QD ity of XL 25 mg 24 00:00: [place] hr tablet [facility] torsemide Yes 10mg Take 10 mg Un osvaldo 10 mg 8-09 by mouth ity of tablet 00:00: daily. [facility] atorvastati Yes TK 1 T PO U nivers n 40 mg 8-09 QD ity of tablet 00:00: [place] [facility] atorvastati Yes TK 1 T PO U nivers n 40 mg 8-09 QD ity of tablet 00:00: [place] [facility] metoprolol 2017 Yes TK 1 T PO Un osvaldo succinate 8-09 QD ity of XL 25 mg 24 00:00: [place] hr tablet [facility] torsemide 2017 Yes 10mg Take 10 mg Un osvaldo 10 mg 8-09 by mouth ity of tablet 00:00: daily. [facility] atorvastati Yes TK 1 T PO U nivers n 40 mg 8-09 QD ity of tablet 00:00: [place] [facility] metoprolol 2017 Yes TK 1 T PO Un osvaldo succinate 8-09 QD ity of XL 25 mg 24 00:00: [place] hr tablet [facility] torsemide 2017 Yes 10mg Take 10 mg Un osvaldo 10 mg 8-09 by mouth ity of tablet 00:00: daily. [facility] metoprolol 2017 Yes TK 1 T PO Un osvaldo succinate 8-09 QD ity of XL 25 mg 24 00:00: [place] hr tablet [facility] [place] atorvastati Yes TK 1 T PO U nivers n 40 mg 8-09 QD ity of tablet 00:00: [facility] metoprolol 2017 Yes TK 1 T PO Un osvaldo succinate 8-09 QD ity of XL 25 mg 24 00:00: [place] hr tablet [facility] torsemide Yes 10mg Take 10 mg Un osvaldo 10 mg 8-09 by mouth ity of tablet 00:00: daily. [facility] torsemide Yes 10mg Take 10 mg Un osvaldo 10 mg 8-09 by mouth ity of tablet 00:00: daily. [facility] atorvastati Yes TK 1 T PO U nivers n 40 mg 8-09 QD ity of tablet 00:00: [facility] metoprolol Yes TK 1 T PO Un osvaldo succinate 8-09 QD ity of XL 25 mg 24 00:00: [place] hr tablet [facility] torsemide Yes 10mg Take 10 mg Un osvaldo 10 mg 8-09 by mouth ity of tablet 00:00: daily. [facility] atorvastati Yes TK 1 T PO U nivers n 40 mg 8-09 QD ity of tablet 00:00: [facility] atorvastati Yes TK 1 T PO U nivers n 40 mg 8-09 QD ity of tablet 00:00: [facility] metoprolol Yes TK 1 T PO Un osvaldo succinate 8-09 QD ity of XL 25 mg 24 00:00: [place] hr tablet [facility] torsemide Yes 10mg Take 10 mg Un osvaldo 10 mg 8-09 by mouth ity of tablet 00:00: daily. [facility] atorvastati Yes TK 1 T PO U nivers n 40 mg 8-09 QD ity of tablet 00:00: [facility] metoprolol Yes TK 1 T PO Un osvaldo succinate 8-09 QD ity of XL 25 mg 24 00:00: [place] hr tablet [facility] torsemide 2017 Yes 10mg Take 10 mg Un osvaldo 10 mg 8-09 by mouth ity of tablet 00:00: daily. [facility] metoprolol 2017 Yes TK 1 T PO Un osvaldo succinate 8-09 QD ity of XL 25 mg 24 00:00: [place] hr tablet [facility] torsemide Yes 10mg Take 10 mg Un osvaldo 10 mg 8-09 by mouth ity of tablet 00:00: daily. [facility] atorvastati Yes TK 1 T PO U nivers n 40 mg 8-09 QD ity of tablet 00:00: [facility] metoprolol Yes TK 1 T PO Un osvaldo succinate 8-09 QD ity of XL 25 mg 24 00:00: [place] hr tablet [facility] torsemide Yes 10mg Take 10 mg Un osvaldo 10 mg 8-09 by mouth ity of tablet 00:00: daily. [facility] atorvastati Yes TK 1 T PO U nivers n 40 mg 8-09 QD ity of tablet 00:00: [place] [facility] metoprolol Yes TK 1 T PO Un osvaldo succinate 8-09 QD ity of XL 25 mg 24 00:00: [place] tablet [facility] torsemide Yes 10mg Take 10 mg Un osvaldo 10 mg 8-09 by mouth ity of tablet 00:00: daily. [facility] atorvastati Yes TK 1 T PO U nivers n 40 mg 8-09 QD ity of tablet 00:00: [facility] metoprolol Yes TK 1 T PO Un osvaldo succinate 8-09 QD ity of XL 25 mg 24 00:00: [place] hr tablet [facility] torsemide Yes 10mg Take 10 mg Un osvaldo 10 mg 8-09 by mouth ity of tablet 00:00: daily. [facility] atorvastati Yes TK 1 T PO U nivers n 40 mg 8-09 QD ity of tablet 00:00: [facility] metoprolol Yes TK 1 T PO Un osvaldo succinate 8-09 QD ity of XL 25 mg 24 00:00: [place] hr tablet [facility] torsemide 2017 Yes 10mg Take 10 mg Un osvaldo 10 mg 8-09 by mouth ity of tablet 00:00: daily. [facility] atorvastati Yes TK 1 T PO U nivers n 40 mg 8-09 QD ity of tablet 00:00: [facility] metoprolol 2017 Yes TK 1 T PO Un osvaldo succinate 8-09 QD ity of XL 25 mg 24 00:00: [place] hr tablet [facility] torsemide Yes 10mg Take 10 mg Un osvaldo 10 mg 8-09 by mouth ity of tablet 00:00: daily. [facility] atorvastati Yes TK 1 T PO U nivers n 40 mg 8-09 QD ity of tablet 00:00: [place] [facility] metoprolol Yes TK 1 T PO Un osvaldo succinate 8-09 QD ity of XL 25 mg 24 00:00: [place] hr tablet [facility] torsemide Yes 10mg Take 10 mg Un osvaldo 10 mg 8-09 by mouth ity of tablet 00:00: daily. [facility] atorvastati Yes TK 1 T PO U nivers n 40 mg 8-09 QD ity of tablet 00:00: [place] [facility] metoprolol Yes TK 1 T PO Un osvaldo succinate 8-09 QD ity of XL 25 mg 24 00:00: [place] hr tablet [facility] torsemide Yes 10mg Take 10 mg Un osvaldo 10 mg 8-09 by mouth ity of tablet 00:00: daily. [facility] atorvastati Yes TK 1 T PO U nivers n 40 mg 8-09 QD ity of tablet 00:00: [place] [facility] levothyroxi Yes TK 1 T PO U nivers ne 25 mcg 8-08 QD ity of tablet 00:00: [facility] levothyroxi Yes TK 1 T PO U nivers ne 25 mcg 8-08 QD ity of tablet 00:00: [place] [facility] levothyroxi Yes TK 1 T PO U nivers ne 25 mcg 8-08 QD ity of tablet 00:00: [place] [facility] levothyroxi [id number] Yes TK 1 T PO U nivers ne 25 mcg 8-08 QD ity of tablet 00:00: [place] [facility] levothyroxi 2017 Yes TK 1 T PO U nivers ne 25 mcg 8-08 QD ity of tablet 00:00: [place] [facility] levothyroxi 2017 Yes TK 1 T PO U nivers ne 25 mcg 8-08 QD ity of tablet 00:00: [place] [facility] levothyroxi 2017 Yes TK 1 T PO U nivers ne 25 mcg 8-08 QD ity of tablet 00:00: [place] [facility] levothyroxi 2017 Yes TK 1 T PO U nivers ne 25 mcg 8-08 QD ity of tablet 00:00: [place] [facility] levothyroxi 2017 Yes TK 1 T PO U nivers ne 25 mcg 8-08 QD ity of tablet 00:00: [place] [facility] levothyroxi 2017 Yes TK 1 T PO U nivers ne 25 mcg 8-08 QD ity of tablet 00:00: [address] levothyroxi 2017 Yes TK 1 T PO U nivers ne 25 mcg 8-08 QD ity of tablet 00:00: [place] [facility] levothyroxi 2017 Yes TK 1 T PO U nivers ne 25 mcg 8-08 QD ity of tablet 00:00: [place] [facility] levothyroxi 2017 Yes TK 1 T PO U nivers ne 25 mcg 8-08 QD ity of tablet 00:00: [place] [facility] levothyroxi 2017 Yes TK 1 T PO U nivers ne 25 mcg 8-08 QD ity of tablet 00:00: [place] [facility] levothyroxi 2017 Yes TK 1 T PO U nivers ne 25 mcg 8-08 QD ity of tablet 00:00: [address] levothyroxi 2017 Yes TK 1 T PO U nivers ne 25 mcg 8-08 QD ity of tablet 00:00: [place] [facility] levothyroxi 2017 Yes TK 1 T PO U nivers ne 25 mcg 8-08 QD ity of tablet 00:00: [address] levothyroxi Yes TK 1 T PO U nivers ne 25 mcg 8-08 QD ity of tablet 00:00: [place] [facility] levothyroxi Yes TK 1 T PO U nivers ne 25 mcg 8-08 QD ity of tablet 00:00: [place] [facility] levothyroxi Yes TK 1 T PO U nivers ne 25 mcg 8-08 QD ity of tablet 00:00: [place] [facility] levothyroxi Yes TK 1 T PO U nivers ne 25 mcg 8-08 QD ity of tablet 00:00: [place] [facility] levothyroxi Yes TK 1 T PO U nivers ne 25 mcg 8-08 QD ity of tablet 00:00: [place] [facility] lisinopril Yes 2.5 mg = 1 M emoria 2.5 mg oral 4-06 tab, PO, l tablet 13:46: Daily, # [place] 00 30 tab, 0 Refill(s) AMIODarone Yes 200 mg = 1 M emoria 200 mg oral 4-06 tab, PO, l tablet 13:46: BID, [place] 00 please start this regimen after 1 week of 400 mg PO BID for 1 week, # 60 tab, 0 Refill(s) Acetaminoph Yes 2 tab, PO, Memoria en 300 MG / -06 Q6H, PRN l Codeine 13:46: Pain Score [...] = 1 M emoria 200 mg oral -06 tab, PO, l tablet 13:46: BID, [place] 00 please start this regimen after 1 [...] INHALATION l 0.09 13:46: , QID, PRN [place] MG/ACTUAT 00 for Metered wheezing, Dose # 25 gm, 0 Inhaler Refill(s) [Proventil] Advair Yes 1 puff, Memoria Diskus 250 4-06 INHALATION l mcg-50 mcg 13:46: , BID, # cazares inhalation 00 60 puff, 0 powder Refill(s) torsemide Yes 10 mg = 1 Mem oria 10 mg oral 4-06 tab, PO, l tablet 13:46: Daily, # [place] 00 30 tab, 0 Refill(s) metoprolol Yes 25 mg = 1 Me moria 25 mg oral 4-06 tab, PO, l tablet, 13:46: Daily, # Rafat n extended 00 30 tab, 0 release Refill(s) clopidogrel Yes 75 mg = 1 M emoria 75 mg oral 4-06 tab, PO, l tablet 13:46: Daily, # [place] 00 30 tab, 0 Refill(s) atorvastati Yes [...] tab, PO, l tablet 13:46: Daily, # [place] 00 30 tab, 0 Refill(s) AMIODarone Yes 200 mg = 1 M emoria 200 mg oral 4-06 tab, PO, l tablet 13:46: BID, [place] 00 please start this regimen after 1 week of 400 mg PO BID for 1 week, # 60 tab, 0 Refill(s) Acetaminoph Yes 2 tab, PO, Memoria en 300 MG / 4-06 Q6H, PRN l Codeine 13:46: Pain Score Herm jigna Phosphate 00 4-6, X 5 30 MG Oral day, # 40 Tablet tab, 0 [Tylenol Refill(s) with Codeine #3] 200 ACTUAT 2017-0 Yes 2 puff, Danilo jerry Albuterol 4-06 INHALATION l 0.09 13:46: , QID, PRN [place] MG/ACTUAT 00 for Metered wheezing, Dose # 25 gm, 0 Inhaler Refill(s) [Proventil] Advair Yes 1 puff, Memoria Diskus 250 4-06 INHALATION l mcg-50 mcg 13:46: , BID, # Her cazares inhalation 00 60 puff, 0 powder Refill(s) torsemide Yes 10 mg = 1 Mem oria 10 mg oral 4-06 tab, PO, l tablet 13:46: Daily, # [place] 00 30 tab, 0 Refill(s) metoprolol Yes 25 mg = 1 Me moria 25 mg oral 4-06 tab, PO, l tablet, 13:46: Daily, # Rafat n extended 00 30 tab, 0 release Refill(s) clopidogrel Yes 75 mg = 1 M emoria 75 mg oral 4-06 tab, PO, l tablet 13:46: Daily, # [place] 00 30 tab, 0 Refill(s) atorvastati Yes 40 mg = 1 M emoria n 40 mg 4-06 tab, PO, l oral tablet 13:46: Bedtime, # [place] 00 30 tab, 0 Refill(s) aspirin 81 [...] 4-06 tab, PO, l tablet 13:46: BID, [place] 00 please start this regimen after 1 [...] INHALATION l 0.09 13:46: , QID, PRN [place] MG/ACTUAT 00 for Metered wheezing, Dose # 25 gm, 0 Inhaler Refill(s) [Proventil] Advair Yes 1 puff, Memoria Diskus 250 4-06 INHALATION l mcg-50 mcg 13:46: , BID, # Her cazares inhalation 00 60 puff, 0 powder Refill(s) torsemide Yes 10 mg = 1 Mem oria 10 mg oral 4-06 tab, PO, l tablet 13:46: Daily, # [place] 00 30 tab, 0 Refill(s) metoprolol Yes [...] PO, l oral tablet 13:46: Bedtime, # [place] 00 30 tab, 0 Refill(s) aspirin 81 [...] # 14 tab, [Mucinex] 0 Refill(s) lisinopril 2017 Yes 2.5 mg [...] tab, PO, l tablet 13:46: Daily, # [place] 00 30 tab, 0 Refill(s) metoprolol Yes [...] 4-06 tab, PO, l tablet 13:46: BID, [place] 00 please start this regimen after 1 [...] 00 30 tab, 0 release Refill(s) clopidogrel 2017-0 Yes 75 mg = 1 M emoria 75 mg oral 4-06 tab, PO, l tablet 13:46: Daily, # [place] 00 30 tab, 0 Refill(s) atorvastati Yes [...] tab, PO, l tablet 13:46: Daily, # [place] 00 30 tab, 0 Refill(s) AMIODarone Yes [...] INHALATION l 0.09 13:46: , QID, PRN [place] MG/ACTUAT 00 for Metered wheezing, Dose # [...] a 4-05 (Same As: l 14:00: Demadex) [place] 00 torsemide No Notes: Memori a 4-05 (Same As: l 14:00: Demadex) [place] 00 torsemide No Notes: Memori a 4-05 (Same As: l 14:00: Demadex) [place] 00 torsemide No Notes: Memori a 4-05 (Same As: l 14:00: Demadex) [place] 00 torsemide No Notes: Memori a 4-05 (Same As: l 14:00: Demadex) [place] 00 torsemide No Notes: Memori a 4-05 (Same As: l 14:00: Demadex) [place] 00 torsemide No Notes: Memori a 4-05 (Same As: l 14:00: Demadex) [place] 00 Amiodarone No Notes: Memor ia 4-04 (Same as: l 14:06: Cordarone) [place] 00 Amiodarone No Notes: Memor ia 4-04 (Same as: l 14:06: Cordarone) [place] Amiodarone No Notes: Memor ia 4-04 (Same as: l 14:06: Cordarone) [place] 00 Amiodarone No Notes: Memor ia 4-04 (Same as: l 14:06: Cordarone) [place] 00 Amiodarone No Notes: Memor ia 4-04 (Same as: l 14:06: Cordarone) [place] 00 Amiodarone No Notes: Memor ia 4-04 (Same as: l 14:06: Cordarone) [place] 00 Amiodarone No Notes: Memor ia 4-04 (Same as: l 14:06: Cordarone) [place] 00 metoprolol No Notes: Memor ia extended 4-04 (Same as: l release 14:00: Toprol XL) Herm jigna 00 Do Not Crush metoprolol No Notes: Memor ia extended 4-04 (Same as: l release 14:00: Toprol XL) Herm jigna 00 Do Not Crush metoprolol No Notes: Memor ia extended 4-04 (Same as: l release 14:00: Toprol XL) Herm jigna 00 Do Not Crush metoprolol 2017 No Notes: Memor ia extended 4-04 (Same as: l release 14:00: Toprol XL) Herm jigna 00 Do Not Crush metoprolol No Notes: Memor ia extended 4-04 (Same as: l release 14:00: Toprol XL) Herm jigna 00 Do Not Crush metoprolol 2017 No Notes: Memor ia extended 4-04 (Same [...] n 4-04 (Same as: l 02:00: Lipitor) [place] 00 atorvastati No Notes: Danilo jerry n 4-04 (Same as: l 02:00: Lipitor) chlorhexidi No Notes: Danilo jerry ne 4-03 (Same As: l gluconate 14:00: Hibiclens) [place] r[place] 40 MG/ML 00 Medicated Liquid Soap chlorhexidi No Notes: Danilo jerry ne 4-03 (Same As: l gluconate 14:00: Hibiclens) [place] r[place] 40 MG/ML 00 Medicated Liquid Soap chlorhexidi No Notes: Danilo jerry ne - (Same As: l gluconate 14:00: Hibiclens) [place] r[place] 40 MG/ML 00 Medicated Liquid Soap chlorhexidi No Notes: Danilo jerry ne - (Same As: l gluconate 14:00: Hibiclens) [place] r[place] 40 MG/ML 00 Medicated Liquid Soap chlorhexidi No Notes: Danilo jerry ne - (Same As: l gluconate 14:00: Hibiclens) [place] r[place] 40 MG/ML 00 Medicated Liquid Soap chlorhexidi No Notes: Danilo jerry ne - (Same As: l gluconate 14:00: Hibiclens) He r[place] 40 MG/ML 00 Medicated Liquid Soap chlorhexidi No Notes: Danilo jerry ne - (Same As: l gluconate 14:00: Hibiclens) He [...] day, Stop date: 07/26/16 10:20:00 CDT Insulin, 0 No Notes: Memoria Aspart, 06-26 Roll in l Human 15:21: palms of [place] 00 hands gently; Do not shake vigorously . (Same as: NovoLOG) "single patient use only" WASTE: F/P - Black; E - Municipal Trash Bin Stable for 28 days at room temperatur e. Expires in days from ____Date Glucagon 2017-0 No 1 mg, Memoria 4-02 Route: IM, l 15:21: Drug form: [place] 00 PDR/INJ, PRN, Dosing Weight 103.653, kg, PRN Blood Glucose Results, Start date: 06/26/16 10:21:00 CDT, Duration: 30 day, Stop date: 07/26/16 10:20:00 CDT Dextrose 2016-0 No 25 gm, 50 Danilo jerry 50% Syringe 4-02 mL, Route: l 15:21: IVP, Drug [place] 00 Form: INJ, Dosing Weight 103.653, kg, PRN, PRN Blood Glucose Results, Start date: 06/26/16 10:21:00 CDT, Duration: 30 day, Stop date: 07/26/16 10:20:00 CDT Insulin, 2016-0 No Notes: Memoria Aspart, 4-02 Roll in l Human 15:21: palms of [place] 00 hands gently; Do not shake vigorously . (Same as: NovoLOG) "single patient use only" WASTE: F/P - Black; E - panOpen Trash Bin Stable for 28 days at room temperatur e. Expires in days from ____Date Glucagon 2016-0 No 1 mg, Memoria 4 Route: IM, l 15:21: Drug form: [place] 00 PDR/INJ, PRN, Dosing Weight 103.653, kg, [...] ____Date Glucagon 2017-0 No 1 mg, Memoria 06-26 Route: IM, l 15:21: Drug form: [place] 00 PDR/INJ, PRN, Dosing Weight 103.653, kg, PRN Blood Glucose Results, Start date: 06/26/16 10:21:00 CDT, Duration: 30 day, Stop date: 07/26/16 10:20:00 CDT Dextrose 2017-0 No 25 gm, 50 Danilo jerry 50% Syringe 4-02 mL, Route: l 15:21: IVP, Drug [place] 00 Form: INJ, Dosing Weight 103.653, kg, PRN, PRN Blood Glucose Results, Start date: 06/26/16 10:21:00 CDT, Duration: 30 day, Stop date: 07/26/16 10:20:00 CDT Insulin, 2016-0 No Notes: Memoria Aspart, 06-26 Roll in l Human 15:21: palms of [place] 00 hands gently; Do not shake vigorously . (Same as: NovoLOG) "single patient use only" WASTE: F/P - Black; E - Municipal Trash Bin Stable for 28 days at room temperatur e. Expires in days from ____Date Glucagon 2016-0 No 1 mg, Memoria 06-26 Route: IM, l 15:21: Drug form: [place] 00 PDR/INJ, PRN, Dosing Weight 103.653, kg, PRN Blood Glucose Results, Start date: 06/26/16 10:21:00 CDT, Duration: 30 day, Stop date: 07/26/16 10:20:00 CDT Dextrose 2017-0 No 25 gm, 50 Danilo jerry 50% Syringe 4-02 mL, Route: l 15:21: IVP, Drug [place] 00 Form: INJ, Dosing Weight 103.653, kg, PRN, PRN Blood Glucose Results, Start date: 06/26/16 10:21:00 CDT, Duration: 30 day, Stop date: 07/26/16 10:20:00 CDT Insulin, 2017-0 No Notes: Memoria Aspart, 4-02 Roll in l Human 15:21: palms of [place] 00 hands gently; Do not shake vigorously . (Same as: NovoLOG) "single patient use only" WASTE: F/P - Black; E - Municipal Trash Bin Stable for 28 days at room temperatur e. Expires in days from ____Date Glucagon 2017-0 No 1 mg, Memoria 4-02 Route: IM, l 15:21: Drug form: [place] 00 PDR/INJ, PRN, Dosing Weight 103.653, kg, PRN Blood Glucose Results, Start date: 06/26/16 10:21:00 CDT, Duration: 30 day, Stop date: 07/26/16 10:20:00 CDT Dextrose 2017-0 No 25 gm, 50 Danilo jerry 50% Syringe 4-02 mL, Route: l 15:21: IVP, Drug [place] 00 Form: INJ, Dosing Weight 103.653, kg, PRN, PRN Blood Glucose Results, Start date: 06/26/16 10:21:00 CDT, Duration: 30 day, Stop date: 07/26/16 10:20:00 CDT Insulin, 2017-0 No Notes: Memoria Aspart, 4-02 Roll in l Human 15:21: palms of [place] 00 hands gently; Do not shake vigorously . (Same as: NovoLOG) "single patient use only" WASTE: F/P - Black; E - Municipal Trash Bin Stable for 28 days at room temperatur e. Expires in days from ____Date Glucagon 2017-0 No 1 mg, Memoria 4-02 Route: IM, l 15:21: Drug form: [place] 00 PDR/INJ, PRN, Dosing Weight 103.653, kg, PRN Blood Glucose Results, Start date: 06/26/16 10:21:00 CDT, Duration: 30 day, Stop date: 07/26/16 10:20:00 CDT Dextrose 2017-0 No 25 gm, 50 Danilo jerry 50% Syringe 4-02 mL, Route: l 15:21: IVP, Drug Form: INJ, Dosing Weight 103.653, kg, PRN, PRN Blood Glucose Results, Start date: 06/26/16 10:21:00 CDT, Duration: 30 day, Stop date: 07/26/16 10:20:00 CDT Insulin, No Notes: Blancaoria Aspart, - Roll in l Human 15:21: palms of hands gently; Do not shake vigorously . (Same as: NovoLOG) "single patient use only" WASTE: F/P - Black; E - Municipal Trash Bin Stable for 28 days at room temperatur e. Expires in days from ____Date Lasix No Notes: Memoria 4- (Same as: l 12:30: Lasix) albumin No Notes: Memoria human 5% 4- LOT#: l intravenous 12:30: [place] solution 00 ___ Mfg: WASTE: F/P - Red; E -Red (Same as: Albuminar) "blood product derivative " Lasix No Notes: Memoria 4- (Same as: l 12:30: Lasix) albumin No Notes: Memoria human 5% 4-02 LOT#: l intravenous 12:30: [place] solution 00 ___ Mfg: WASTE: F/P - Red; E -Red (Same as: Albuminar) "blood product derivative " Lasix No Notes: Memoria 4-02 (Same as: l 12:30: Lasix) albumin No Notes: Memoria human 5% 4-02 LOT#: l intravenous 12:30: [place] solution 00 ___ Mfg: WASTE: F/P - Red; E -Red (Same as: Albuminar) "blood product derivative " Lasix No Notes: Memoria - (Same as: l 12:30: Lasix) [place] albumin No Notes: [place] human 5% 4- LOT#: l intravenous 12:30: [place] solution 00 ___ Mfg: WASTE: F/P - Red; E -Red (Same as: Albuminar) "blood product derivative " Lasix No Notes: Memoria - (Same as: l 12:30: Lasix) [place] albumin No Notes: [place] human 5% 4- LOT#: l intravenous 12:30: [place] solution 00 ___ Mfg: WASTE: F/P - Red; E -Red (Same as: Albuminar) "blood product derivative " Lasix No Notes: Memoria - (Same as: l 12:30: Lasix) [place] 00 albumin No Notes: [place] human 5% - LOT#: l intravenous 12:30: [place] solution 00 ___ Mfg: WASTE: F/P - Red; E -Red (Same as: Albuminar) "blood product derivative " Lasix No Notes: Memoria 06-26 (Same as: l 12:30: Lasix) [place] albumin No Notes: [place] human 5% 4- LOT#: l intravenous 12:30: [place] solution 00 ___ Mfg: WASTE: F/P - Red; E -Red (Same as: Albuminar) "blood product derivative " glucagon No 1 mg, Memoria 06-26 Route: l 03:17: INJ, Drug form: PDR/INJ, PRN, PRN Blood Glucose Results, Start date: 06/25/16 22:17:00 CDT, Duration: 30 day, Stop date: 07/25/16 22:16:00 CDT Dextrose 2016-0 No 50 mL, Memoria 50% in 06-26 Route: l Water IV 03:17: IVP, Start cazares date: 06/25/16 22:17:00 CDT, Duration: 30 day, Stop date: 07/25/16 22:16:00 CDT, PRN Blood Glucose Results insulin 0 No Notes: Memoria aspart - Roll in l 03:17: palms of [place] 00 hands gently; Do not shake vigorously . (Same as: NovoLOG) "single patient use only" WASTE: F/P - Black; E - [facility] Trash Bin Stable for 28 days at room temperatur e. Expires in days from ____Date glucagon 2017-0 No 1 mg, Memoria 06-26 Route: l 03:17: INJ, Drug [place] form: PDR/INJ, PRN, PRN Blood Glucose Results, Start date: 06/25/16 22:17:00 CDT, Duration: 30 day, Stop date: 07/25/16 22:16:00 CDT Dextrose 2016-0 No 50 mL, Memoria 50% in 06-26 Route: l Water IV 03:17: IVP, Start date: 06/25/16 22:17:00 CDT, Duration: 30 day, Stop date: 07/25/16 22:16:00 CDT, PRN Blood Glucose Results insulin 0 No Notes: Memoria aspart - Roll in l 03:17: palms of [place] 00 hands gently; Do not shake vigorously . (Same as: NovoLOG) "single patient use only" WASTE: F/P - Black; E - [facility] Trash [facility] Stable for 28 days at room temperatur e. Expires in days from ____Date glucagon 2017-0 No 1 mg, Memoria 06-26 Route: l 03:17: INJ, Drug [place] 00 form: PDR/INJ, PRN, PRN Blood Glucose Results, Start date: 06/25/16 22:17:00 CDT, Duration: 30 day, Stop date: 07/25/16 22:16:00 CDT Dextrose 2016-0 No 50 mL, Memoria 50% in 06-26 Route: l Water IV 03:17: IVP, Start Her cazares date: 06/25/16 22:17:00 CDT, Duration: 30 day, Stop date: 07/25/16 22:16:00 CDT, PRN Blood Glucose Results insulin 2016-0 No Notes: Memoria aspart - Roll in l 03:17: palms of [place] 00 hands gently; Do not shake vigorously . (Same as: NovoLOG) "single patient use only" WASTE: F/P - Black; E - [facility] Trash [facility] Stable for 28 days at room temperatur e. Expires in days from ____Date glucagon 2017-0 No 1 mg, Memoria 06-26 Route: l 03:17: INJ, Drug [place] form: PDR/INJ, PRN, PRN Blood Glucose Results, Start date: 06/25/16 22:17:00 CDT, Duration: 30 day, Stop date: 07/25/16 22:16:00 CDT Dextrose 2016-0 No 50 mL, Memoria 50% in 06-26 Route: l Water IV 03:17: IVP, Start cazares date: 06/25/16 22:17:00 CDT, Duration: 30 day, Stop date: 07/25/16 22:16:00 CDT, PRN Blood Glucose Results insulin 0 No Notes: Memoria aspart - Roll in l 03:17: palms of [place] 00 hands gently; Do not shake vigorously . (Same as: NovoLOG) "single patient use only" WASTE: F/P - Black; E - [facility] Trash [facility] Stable for 28 days at room temperatur e. Expires in days from ____Date glucagon 2017-0 No 1 mg, Memoria 06-26 Route: l 03:17: INJ, Drug [place] 00 form: PDR/INJ, PRN, PRN Blood Glucose Results, Start date: 06/25/16 22:17:00 CDT, Duration: 30 day, Stop date: 07/25/16 22:16:00 CDT Dextrose 2016-0 No 50 mL, Memoria 50% in 06-26 Route: l Water IV 03:17: IVP, Start Her cazares date: 06/25/16 22:17:00 CDT, Duration: 30 day, Stop date: 07/25/16 22:16:00 CDT, PRN Blood Glucose Results insulin 0 No Notes: Memoria aspart - Roll in l 03:17: palms of [place] 00 hands gently; Do not shake vigorously . (Same as: NovoLOG) "single patient use only" WASTE: F/P - Black; E - [facility] Trash [facility] Stable for 28 days at room temperatur e. Expires in days from ____Date glucagon 2016-0 No 1 mg, Memoria 06-26 Route: l 03:17: INJ, Drug [place] form: PDR/INJ, PRN, PRN Blood Glucose Results, Start date: 06/25/16 22:17:00 CDT, Duration: 30 day, Stop date: 07/25/16 22:16:00 CDT Dextrose 2016-0 No 50 mL, Memoria 50% in 06-26 Route: l Water IV 03:17: IVP, Start date: 06/25/16 22:17:00 CDT, Duration: 30 day, Stop date: 07/25/16 22:16:00 CDT, PRN Blood Glucose Results insulin 0 No Notes: Memoria aspart - Roll in l 03:17: [place] of [place] 00 hands gently; Do not shake vigorously . (Same as: NovoLOG) "single patient use only" WASTE: F/P - Black; E - [facility] Trash [facility] Stable for 28 days at room temperatur e. Expires in days from ____Date glucagon 2016-0 No 1 mg, Memoria 06-26 Route: l 03:17: INJ, Drug [place] 00 form: PDR/INJ, PRN, PRN Blood Glucose [...] 06-26 Roll in l 03:17: palms of [place] hands gently; Do not shake vigorously . (Same as: NovoLOG) "single patient use only" WASTE: F/P - Black; E - [facility] Trash Bin Stable for 28 days at room temperatur e. Expires in days from ____Date atorvastati No Notes: Danilo jerry n 4-02 (Same As: l 02:00: Lipitor) atorvastati No Notes: Danilo jerry n 4-02 (Same As: l 02:00: Lipitor) atorvastati No Notes: Danilo jerry n 4-02 (Same As: l 02:00: Lipitor) atorvastati No Notes: Danilo jerry n 4-02 (Same As: l 02:00: Lipitor) atorvastati No Notes: Danilo jerry n 4-02 (Same As: l 02:00: Lipitor) atorvastati No Notes: Danilo jerry n 4-02 (Same As: l 02:00: Lipitor) [place] 00 atorvastati No Notes: Danilo jerry n 4-02 (Same As: l 02:00: Lipitor) Lovenox No Notes: Memoria 4-02 (Same as: l 01:00: Lovenox) [place] 00 Lovenox No Notes: Memoria 4-02 (Same as: l 01:00: Lovenox) Lovenox No Notes: Memoria 4-02 (Same as: l 01:00: Lovenox) Lovenox 2016-0 No Notes: Memoria 4-02 (Same as: l 01:00: Lovenox) Lovenox 2016-0 No Notes: Memoria 4-02 (Same as: l 01:00: Lovenox) Lovenox 2016-0 No Notes: Memoria 4- (Same as: l 01:00: Lovenox) Lovenox 2016-0 No Notes: Memoria 4- (Same as: l 01:00: Lovenox) Dilaudid 2017-0 No 0.5 mg, Memori a 4-01 0.5 mL, l 23:54: Route: Ty IVP, Drug form: INJ, ONCE, Dosing Weight 103.653, kg, Priority: STAT, Start date: 06/25/16 18:54:00 CDT, Stop date: 06/25/16 18:54:00 CDT Dilaudid 2017-0 No 0.5 mg, Memori a 4-01 0.5 mL, l 23:54: Route: [place] 00 IVP, Drug form: INJ, ONCE, Dosing Weight 103.653, kg, Priority: STAT, Start date: 06/25/16 18:54:00 CDT, Stop date: 06/25/16 18:54:00 CDT Dilaudid 2017-0 No 0.5 mg, Memori a 4-01 0.5 mL, l 23:54: Route: Ty IVP, Drug form: INJ, ONCE, Dosing Weight 103.653, kg, Priority: STAT, Start date: 06/25/16 18:54:00 CDT, Stop date: 06/25/16 18:54:00 CDT Dilaudid 2017-0 No 0.5 mg, Memori a 4-01 0.5 mL, l 23:54: Route: [place] 00 IVP, Drug form: INJ, ONCE, Dosing Weight 103.653, kg, Priority: STAT, Start date: 06/25/16 18:54:00 CDT, Stop date: 06/25/16 18:54:00 CDT Dilaudid 2017-0 No 0.5 mg, Memori a 4-01 0.5 mL, l 23:54: Route: [place] 00 IVP, Drug form: INJ, ONCE, Dosing Weight 103.653, kg, Priority: STAT, Start date: 06/25/16 18:54:00 CDT, Stop date: 06/25/16 18:54:00 CDT Dilaudid 2017-0 No 0.5 mg, Memori a 4-01 0.5 mL, l 23:54: Route: [place] 00 IVP, Drug form: INJ, ONCE, Dosing Weight 103.653, kg, Priority: STAT, Start date: 06/25/16 18:54:00 CDT, Stop date: 06/25/16 18:54:00 CDT Dilaudid 2017-0 No 0.5 mg, Memori a 4-01 0.5 mL, l 23:54: Route: [place] 00 IVP, Drug form: INJ, ONCE, Dosing Weight 103.653, kg, Priority: STAT, Start date: 06/25/16 18:54:00 CDT, Stop date: 06/25/16 18:54:00 CDT pantoprazol 2017-0 No Notes: Danilo jerry e 4-01 Tablet l 14:00: should not [place] 00 be chewed or crushed. (Same as: Protonix) Mupirocin 2017-0 No 1 appl, Memor ia 0.02 MG/MG 06-25 Route: l Topical 14:00: NASAL, Ty Ointment 00 BID, Drug form: OINT, Start date: 06/25/16 9:00:00 CDT, Duration: 5 day, Stop date: 06/29/16 17:00:00 CDT clopidogrel 2016-0 No Notes: Danilo jerry 4-01 (Same As: l 14:00: Plavix) [place] 00 Aspirin 325 2017-0 No 325 mg, Mem oria MG Enteric 06-25 Route: PO, l Coated 14:00: Drug form: Soumya nn Tablet 00 ECTAB, Daily, Dosing Weight 102.926, kg, Start date: 06/25/16 9:00:00 CDT, Duration: 30 day, Stop date: 07/24/16 9:00:00 CDT pantoprazol 2017-0 No Notes: Danilo jerry e 4-01 Tablet l 14:00: should not [place] 00 be chewed or crushed. (Same as: Protonix) Mupirocin No 1 appl, Memor ia 0.02 MG/MG 4 Route: l Topical 14:00: NASAL, Ty Ointment [...] e 4-01 Tablet l 14:00: should not [place] 00 be chewed or crushed. (Same as: Protonix) Mupirocin No 1 appl, Memor ia 0.02 MG/MG 4 Route: l Topical 14:00: NASAL, [place] Ointment 00 BID, Drug form: OINT, Start [...] e 4-01 Tablet l 14:00: should not [place] 00 be chewed or crushed. (Same as: Protonix) Mupirocin No 1 appl, Memor ia 0.02 MG/MG 4-01 Route: l Topical 14:00: NASAL, [place] Ointment 00 BID, Drug form: OINT, Start date: 06/25/16 9:00:00 CDT, Duration: 5 day, Stop date: 06/29/16 17:00:00 CDT clopidogrel 2016-0 No Notes: Danilo jerry 4-01 (Same As: l 14:00: Plavix) [place] 00 Aspirin 325 No 325 mg, Mem oria MG Enteric 4-01 Route: PO, l Coated 14:00: Drug form: Soumya nn Tablet 00 ECTAB, Daily, Dosing Weight 102.926, kg, Start date: 06/25/16 9:00:00 CDT, Duration: 30 day, Stop date: 07/24/16 9:00:00 CDT pantoprazol 2016-0 No Notes: Danilo jerry e 4-01 Tablet l 14:00: should not [place] 00 be chewed or crushed. (Same as: Protonix) Mupirocin No 1 appl, Memor ia 0.02 MG/MG 4-01 Route: l Topical 14:00: NASAL, Ty Ointment 00 BID, Drug form: OINT, Start date: 06/25/16 9:00:00 CDT, Duration: 5 day, Stop date: 06/29/16 17:00:00 CDT clopidogrel 2016-0 No Notes: Danilo jerry 4-01 (Same As: l 14:00: Plavix) [place] 00 Aspirin 325 No 325 mg, Mem oria MG Enteric 4-01 Route: PO, l Coated 14:00: Drug form: Soumya nn Tablet 00 ECTAB, Daily, Dosing Weight 102.926, kg, Start date: 06/25/16 9:00:00 CDT, Duration: 30 day, Stop date: 07/24/16 9:00:00 CDT pantoprazol 2016-0 No Notes: Danilo jerry e 4-01 Tablet l 14:00: should not [place] 00 be chewed or crushed. (Same as: Protonix) Mupirocin No 1 appl, Memor ia 0.02 MG/MG 4-01 Route: l Topical 14:00: NASAL, [place] Ointment 00 BID, Drug form: OINT, Start date: 06/25/16 9:00:00 CDT, Duration: 5 day, Stop date: 06/29/16 17:00:00 CDT clopidogrel 2016- No Notes: Danilo jerry 4- (Same As: l 14:00: Plavix) [place] 00 Aspirin 325 No 325 mg, Mem oria MG Enteric 06-25 Route: PO, l Coated 14:00: Drug form: Soumya nn Tablet 00 ECTAB, Daily, Dosing Weight 102.926, kg, Start date: 06/25/16 9:00:00 CDT, Duration: 30 day, Stop date: 07/24/16 9:00:00 CDT pantoprazol No Notes: Danilo jerry e 4- Tablet l 14:00: should not [place] 00 be chewed or crushed. (Same as: Protonix) Mupirocin No 1 appl, Memor ia 0.02 MG/MG 06-25 Route: l Topical 14:00: NASAL, [place] Ointment 00 BID, Drug form: OINT, Start date: 06/25/16 9:00:00 CDT, Duration: 5 day, Stop date: 06/29/16 17:00:00 CDT clopidogrel No Notes: Adnilo jerry 4- (Same As: l 14:00: Plavix) [place] 00 Aspirin 325 No 325 mg, Mem oria MG Enteric 06-25 Route: PO, l Coated 14:00: Drug form: Soumya nn Tablet 00 ECTAB, Daily, Dosing Weight 102.926, kg, Start date: 06/25/16 9:00:00 CDT, Duration: 30 day, Stop date: 07/24/16 9:00:00 CDT heparin 2016- No Notes: Memoria 4-01 porcine l 13:00: heparin [place] heparin No Notes: Memoria 4-01 porcine l 13:00: heparin [place] heparin No Notes: Memoria 4-01 porcine l 13:00: heparin [place] heparin No Notes: Memoria 4-01 porcine l 13:00: heparin [place] heparin No Notes: Memoria 4-01 porcine l 13:00: heparin [place] 00 heparin 2016- No Notes: Memoria 4- porcine l 13:00: heparin [place] 00 heparin 2017- No Notes: Memoria 4- porcine l 13:00: heparin [place] 00 vancomycin No 2001 mg: Me moria 4-01 infuse l 06:30: over 2.5 [place] 00 hours vancomycin 2017- No 2001 mg: Me moria 4- infuse l 06:30: over 2.5 [place] 00 hours vancomycin 2017 No 2001 mg: Me moria 4- infuse l 06:30: over 2.5 [place] 00 hours vancomycin 2017- No 2001 mg: Me moria 4- infuse l 06:30: over 2.5 [place] 00 hours vancomycin 2016- No 2001 mg: Me moria 4- infuse l 06:30: over 2.5 [place] 00 hours vancomycin No 2001 mg: Me moria 4- infuse l 06:30: over 2.5 [place] 00 hours vancomycin No 2001 mg: Me moria 4- infuse l 06:30: over 2.5 [place] 00 hours cefuroxime No Notes: Memor ia [...] 4-01 Take with l Tablet 02:00: food. [place] 00 Vancomycin No 1,554.795 Me moria 4-01 mg, Route: l 02:00: IVPB, Drug [place] 00 form: INJ, Q12H, Dosing Weight 103.653, kg, Time Critical Medication , Start date: 06/24/16 21:00:00 CDT, Duration: 2 doses or times, Stop date: 06/25/16 9:00:00 CDT chlorhexidi No Notes: Danilo jerry ne 4-01 (Same As: l gluconate 02:00: Peridex) Herm jigna 1.2 MG/ML 00 Mouthwash Aspirin 325 0 No Notes: Danilo jerry MG Oral 4-01 Take with l Tablet 02:00: food. Vancomycin No 1,554.795 Me moria 4-01 mg, Route: l 02:00: IVPB, Drug form: INJ, Q12H, Dosing Weight 103.653, kg, Time Critical Medication , Start date: 06/24/16 21:00:00 CDT, Duration: 2 doses or times, Stop date: 06/25/16 9:00:00 CDT chlorhexidi 0 No Notes: Danilo jerry ne 4- (Same [...] times, Stop date: 06/25/16 9:00:00 CDT chlorhexidi 0 No Notes: Danilo jerry ne 4-01 (Same [...] times, Stop date: 06/25/16 9:00:00 CDT chlorhexidi 0 No Notes: Danilo jerry ne 4-01 (Same [...] 3-31 Roll in l 23:37: palms of [place] 00 hands gently; Do not shake vigorously [...] 3-31 Roll in l 23:37: palms of [place] 00 hands gently; Do not shake vigorously [...] 3-31 Roll in l 23:37: palms of [place] 00 hands gently; Do not shake vigorously [...] 3-31 Roll in l 23:36: palms of [place] 00 hands gently; Do not shake vigorously . (Same as: NovoLOG) "single patient use only" WASTE: F/P - Black; E - [facility] Trash Bin Stable for 28 days at room temperatur e. Expires in days from ____Date insulin 2017-0 No Notes: Memoria aspart 3-31 Roll in l 23:36: palms of [place] 00 hands gently; Do not shake vigorously . (Same as: NovoLOG) "single patient use only" WASTE: F/P - Black; E - [facility] Trash [facility] Stable for 28 days at room temperatur e. Expires in days from ____Date insulin 2016- No Notes: Memoria aspart 3-31 Roll in l 23:36: palms of [place] 00 hands gently; Do not shake vigorously [...] reg No Notes: Danilo jerry 100 unit-NS 3-31 Final l 100mL 100 23:35: Concentrat He rmann unit 00 ion 1unit/1ml WASTE: F/P - Black; E - [facility] Trash [facility] insulin reg No Notes: Danilo jerry 100 unit-NS 3- Final l 100mL 100 23:35: Concentrat He rmann unit 00 ion 1unit/1ml WASTE: F/P - Black; E - [facility] Trash [facility] insulin reg 2017- No Notes: Danilo jerry 100 unit-NS 3- Final l 100mL 100 23:35: Concentrat He r[place] unit 00 ion 1unit/1ml WASTE: F/P - Black; E - [facility] Trash [facility] insulin reg 2017 No Notes: Danilo jerry 100 unit-NS 3- Final l 100mL 100 23:35: Concentrat He rmann unit 00 ion 1unit/1ml WASTE: F/P - Black; E - [facility] Trash [facility] insulin reg 2017 No Notes: Danilo jerry 100 unit-NS 3- Final l 100mL 100 23:34: Concentrat He rmann unit 00 ion 1unit/1ml WASTE: F/P - Black; E - [facility] Trash [facility] insulin reg 2017 No Notes: Danilo jerry 100 unit-NS 3- Final l 100mL 100 23:34: Concentrat He rmann unit 00 ion 1unit/1ml WASTE: F/P - Black; E - [facility] Trash [facility] insulin reg 2017 No Notes: Danilo jerry 100 unit-NS 3- Final l 100mL 100 23:34: Concentrat He rmann unit 00 ion 1unit/1ml WASTE: F/P - Black; E - [facility] Trash [facility] insulin reg 2017- No Notes: Danilo jerry 100 unit-NS 3- Final l 100mL 100 23:34: Concentrat He r[place] unit 00 ion 1unit/1ml WASTE: F/P - Black; E - [facility] Trash [facility] insulin reg 2017- No Notes: Danilo jerry 100 unit-NS 3- Final l 100mL 100 23:34: Concentrat He r[place] unit 00 ion 1unit/1ml WASTE: F/P - Black; E - [facility] Trash [facility] insulin reg 2017- No Notes: Danilo jerry 100 unit-NS 3-31 Final l 100mL 100 23:34: Concentrat He r[place] unit 00 ion 1unit/1ml WASTE: F/P - Black; E - [facility] Trash [facility] insulin reg 2017 No Notes: Danilo jerry 100 unit-NS 3-31 Final l 100mL 100 23:34: Concentrat He r[place] unit 00 ion 1unit/1ml WASTE: F/P - Black; E - [facility] Trash [facility] albuterol No Notes: SEE Me moria 331 RT l 23:16: DOCUMENTAT [place] 00 ION (Same as: Proventil) albuterol No Notes: SEE Me moria 331 RT l 23:16: DOCUMENTAT [place] 00 ION (Same as: Proventil) albuterol No Notes: SEE Me moria 331 RT l 23:16: DOCUMENTAT [place] 00 ION (Same as: Proventil) albuterol No Notes: SEE Me moria 331 RT l 23:16: DOCUMENTAT [place] 00 ION (Same as: Proventil) albuterol No Notes: SEE Me moria 331 RT l 23:16: DOCUMENTAT [place] 00 ION (Same as: Proventil) albuterol No Notes: SEE Me moria 331 RT l 23:16: DOCUMENTAT [place] 00 ION (Same as: Proventil) albuterol No Notes: SEE Me moria 331 RT l 23:16: DOCUMENTAT [place] 00 ION (Same as: Proventil) Fentanyl No Notes: Memoria 331 Concentrat l 23:00: ion is 20 [place] 00 micrograms /ml metoprolol No Notes: Memor ia tartrate 06-24 (Same as: l 23:00: Lopressor) [place] 00 Cefuroxime No Notes: Memor ia 3- (Same As: l 23:00: Kefurox, [place] 00 Zinacef) MEDICATION WASTE Product Size: 1500 mg Product Wasted: ___ mg Fentanyl No Notes: Memoria 3-31 Concentrat l 23:00: ion is 20 [place] 00 micrograms /ml metoprolol No Notes: Memor ia tartrate 3- (Same as: l 23:00: Lopressor) [place] 00 Cefuroxime No Notes: Memor ia 3-31 [...] ia 3-31 (Same As: l 23:00: Kefurox, [place] 00 Zinacef) MEDICATION WASTE Product Size: 1500 mg Product Wasted: ___ mg Fentanyl No Notes: Memoria 3-31 Concentrat l 23:00: ion is 20 [place] 00 micrograms /ml metoprolol No Notes: Memor ia tartrate 3-31 (Same as: l 23:00: Lopressor) [place] Cefuroxime No Notes: Memor ia 3-31 (Same As: l 23:00: Kefurox, [place] 00 Zinacef) MEDICATION WASTE Product Size: 1500 mg Product Wasted: ___ mg Fentanyl No Notes: Memoria 3-31 Concentrat l 23:00: ion is 20 [place] 00 micrograms /ml metoprolol No Notes: Memor ia tartrate 06-24 (Same as: l 23:00: Lopressor) [place] Cefuroxime No Notes: Memor ia 3-31 (Same As: l 23:00: Kefurox, [place] 00 Zinacef) MEDICATION WASTE Product Size: 1500 mg Product Wasted: ___ mg PHOS-NaK No Notes: Memoria 3- (Same as: l 22:44: Phos-NaK) [place] Each 1.5 gm pkt has 250mg phosphorou s. Mix w/2.5oz water and stir. potassium No Notes: Memori a phosphate + 06-24 (Same as: l sodium 22:44: K [place] chloride Phosphate. 0.9% INJ ) 1 mMol 250 mL phoshate has 1.47 mEq potassium Infuse over 4 hours Calcium No Notes: Memoria Gluconate 06-24 WASTE: F/P l 22:44: - Sink; E [place] - [facility] Trash [facility] Magnesium No Notes: Memori a Oxide 06-24 (Same as: l 22:44: Mag-Ox [place] 400) Magnesium oxide 954fu=[id number] g elemental magnesium Dose=____m g magnesium oxide (___mg elemental magnesium) Magnesium No Notes: Memori a Sulfate 06-24 WASTE: F/P l 22:44: - Sink; E [place] - [facility] Tr[facility] potassium No Notes: Memori a chloride 06-24 (Same as: l 22:44: Potassium [place] 00 Chloride) Calcium No Notes: Memoria Carbonate 06-24 (Same As: l 500 MG 22:44: Tums) [place] Chewable 00 Calcium Tablet Carbonate 500 mg = 200 mg elemental calcium Dose = mg calcium carbonate ( mg elemental calcium) Insulin, No Notes: Memoria Aspart, 3- Roll in l Human 22:44: palms of [place] hands gently; Do not shake vigorously . (Same as: NovoLOG) "single patient use only" WASTE: F/P - Black; E - [facility] Trash [facility] Stable for 28 days at room temperatur e. Expires in days from ____Date sodium No 45 mmol, Memoria phosphate + 3-31 15 mL, l sodium 22:44: Route: [place] chloride 00 IVPB, PRN, 0.9% INJ Dosing [...] 3-31 Same as l 22:44: Narcan [place] Saline No Notes: Memoria Flush 0.9% 3-31 (Same as: l 22:44: BD [place] Posiflush) Dulcolax No Notes: Memoria Laxative 3-31 (Same As: l 22:44: Dulcolax, Ty Bisco-Lax) Lactulose No Notes: Memori a 667 MG/ML 3-31 (Same l Oral 22:44: as:Chronul [place] Solution 00 ac) albumin No Notes: Memoria human 5% 3-31 LOT#: l intravenous 22:44: [place] solution 00 ___ Mfg: WASTE: F/P - [...] Memoria 06-24 (Same as: l 22:44: Zofran) MEDICATION [...] a 0.833 MG/ML 06-24 (Same as: l 22:44: Duoneb) Ipratropium 00 [place] 0.167 MG/ML Inhalant Solution Glucagon No 1 [...] Acetaminoph No Notes: Do M emoria en 3-31 not exceed l 22:44: 4 gm/day. [place] 00 (Same as: Tylenol) PHOS-NaK No Notes: Memoria 3-31 (Same as: l 22:44: Phos-NaK) [place] 00 Each 1.5 gm pkt has 250mg phosphorou s. Mix w/2.5oz water and stir. potassium No Notes: Memori a phosphate + - (Same as: l sodium 22:44: K [place] chloride 00 Phosphate. 0.9% INJ ) 1 mMol 250 mL phoshate has 1.47 mEq potassium Infuse over 4 hours Calcium No Notes: Memoria Gluconate - WASTE: F/P l 22:44: - Sink; E [place] - [facility] Magnesium No Notes: Memori a Oxide - (Same as: l 22:44: Mag-Ox [place] 400) Magnesium oxide 114sl=797x g elemental magnesium Dose=____m g magnesium oxide (___mg elemental magnesium) Magnesium No Notes: Memori a Sulfate 06-24 WASTE: F/P l 22:44: - Sink; E [place] - [facility] Tr[facility] potassium No Notes: Memori a chloride - (Same as: l 22:44: Potassium [place] Chloride) Calcium No Notes: Memoria Carbonate 3- (Same As: l 500 MG 22:44: Tums) [place] Chewable 00 Calcium Tablet Carbonate 500 mg = 200 mg elemental calcium Dose = mg calcium carbonate ( mg elemental calcium) Insulin, No Notes: Memoria Aspart, 3- Roll in l Human 22:44: palms of [place] hands gently; Do not shake vigorously . (Same as: NovoLOG) "single patient use only" WASTE: F/P - Black; E - [facility] Trash [facility] Stable for 28 days at room temperatur e. Expires in days from ____Date sodium No 45 mmol, Memoria phosphate + 3-31 15 mL, l sodium 22:44: Route: [place] chloride 00 IVPB, PRN, 0.9% INJ Dosing [...] Memoria 3-31 Same as l 22:44: Narcan [place] Saline No Notes: Memoria Flush 0.9% 3-31 (Same as: l 22:44: BD [place] Posiflush) Dulcolax No Notes: Memoria Laxative 3-31 (Same As: l 22:44: Dulcolax, Ty Bisco-Lax) Lactulose No Notes: Memori a 667 MG/ML 3-31 (Same l Oral 22:44: as:Chronul [place] Solution 00 ac) albumin No Notes: Memoria human 5% 3-31 LOT#: l intravenous 22:44: [place] solution 00 ___ Mfg: WASTE: F/P - [...] 06-24 Route: l 22:44: NEB, PRN, Ty Dosing Weight 102.926, kg, PRN Respirator y Protocol, Start date: 06/24/16 17:44:00 CDT, Duration: 30 day, Stop date: 07/24/16 17:43:00 CDT Morphine No Notes: Memoria 06-24 (Same l 22:44: as:MORPhin e Sulfate) Albuterol No Notes: Memori a 0.833 MG/ML 06-24 (Same as: l / 22:44: Duoneb) Ipratropium 00 [place] 0.167 MG/ML Inhalant Solution Glucagon No 1 mg, Memoria 06-24 Route: IM, l 22:44: Drug form: [place] PDR/INJ, PRN, Dosing Weight 103.653, kg, PRN Blood Glucose Results, Start date: 06/24/16 17:44:00 CDT, Duration: 30 day, Stop date: 07/24/16 17:43:00 CDT Nitroglycer No Notes: Danilo jerry in 06-24 (Same l 22:44: as:Nitroqu [place] ick, Nitrostat) "Do Not Crush" Sublingual tablet [...] Acetaminoph No Notes: Do M emoria en 3-31 not exceed l 22:44: 4 gm/day. [place] 00 (Same as: Tylenol) PHOS-NaK No Notes: [...] 4 hours Calcium No Notes: Memoria Gluconate - WASTE: F/P l 22:44: - Sink; E [place] - [facility] Magnesium No Notes: Memori a Oxide -31 (Same as: l 22:44: Mag-Ox [place] 00 400) Magnesium oxide 505ik=026o g elemental magnesium Dose=____m g magnesium oxide (___mg elemental magnesium) Magnesium No Notes: Memori a Sulfate - WASTE: F/P l 22:44: - Sink; E [place] - [facility] Trash [facility] potassium No Notes: Memori a chloride 3-31 (Same as: l 22:44: Potassium [place] 00 Chloride) Calcium No Notes: Memoria Carbonate 3-31 (Same As: l 500 MG 22:44: Tums) [place] Chewable 00 Calcium Tablet Carbonate 500 mg = 200 mg elemental calcium Dose = mg calcium carbonate ( mg elemental calcium) Insulin, No Notes: Memoria Aspart, 3-31 Roll in l Human 22:44: palms of [place] hands gently; Do not shake vigorously . [...] phosphate 3-31 (Same as: l 22:44: K [place] 00 Phosphate) sodium No 15 mmol, Memoria [...] Laxative 3-31 (Same As: l 22:44: Dulcolax, [place] 00 Bisco-Lax) Lactulose No Notes: Memori a 667 MG/ML 3-31 (Same l Oral 22:44: as:Chronul [place] Solution 00 ac) albumin No Notes: Memoria [...] Memoria 06-24 (Same as: l 22:44: Zofran) [place] MEDICATION WASTE Product Size: 4 mg Product Wasted: ___ mg Xopenex No 1.25 mg, Memori a 06-24 Route: l 22:44: NEB, PRN, Ty Dosing Weight 102.926, kg, PRN Respirator y Protocol, Start date: 06/24/16 17:44:00 CDT, Duration: 30 day, Stop date: 07/24/16 17:43:00 CDT Morphine No Notes: Memoria 06-24 (Same l 22:44: as:MORPhin [place] 00 e Sulfate) Albuterol No Notes: Memori a 0.833 MG/ML 06-24 (Same as: l / 22:44: Duoneb) Ipratropium 00 [place] 0.167 MG/ML Inhalant Solution Glucagon No 1 mg, Memoria 06-24 Route: IM, l 22:44: Drug form: [place] PDR/INJ, PRN, Dosing Weight 103.653, kg, PRN Blood Glucose Results, Start date: 06/24/16 17:44:00 CDT, Duration: 30 day, Stop date: 07/24/16 17:43:00 CDT Nitroglycer No Notes: Danilo jerry in 06-24 (Same l 22:44: as:Nitroqu [place] 00 ick, Nitrostat) "Do Not Crush" Sublingual tablet Docusate No Notes: Memoria 06-24 (Same as: l 22:44: Colace) [place] (Do Not Crush) Ondansetron No Notes: Danilo [...] Acetaminoph No Notes: Do M emoria en 3-31 not exceed l 22:44: 4 gm/day. [place] 00 (Same as: Tylenol) PHOS-NaK No Notes: Memoria 3-31 (Same as: l 22:44: Phos-NaK) [place] 00 Each 1.5 gm pkt has 250mg phosphorou s. Mix w/2.5oz water and stir. potassium No Notes: Memori a phosphate + 3-31 (Same as: l sodium 22:44: K [place] chloride 00 Phosphate. 0.9% INJ ) 1 mMol 250 mL phoshate has 1.47 mEq potassium Infuse over 4 hours Calcium No Notes: Memoria Gluconate - WASTE: F/P l 22:44: - Sink; E [place] - Municipal Trash Bin Magnesium No Notes: Memori a Oxide -31 (Same as: l 22:44: Mag-Ox [place] 400) Magnesium oxide 220jd=817t g elemental magnesium Dose=____m g magnesium oxide (___mg elemental magnesium) Magnesium No Notes: Memori a Sulfate 3-31 WASTE: F/P l 22:44: - Sink; E [place] - Municipal Trash Bin potassium No Notes: Memori a chloride 3-31 (Same as: l 22:44: Potassium [place] 00 Chloride) Calcium No Notes: Memoria Carbonate 3-31 (Same As: l 500 MG 22:44: Tums) [place] Chewable 00 Calcium Tablet Carbonate 500 mg = 200 mg elemental calcium Dose = mg calcium carbonate ( mg elemental calcium) Insulin, No Notes: Memoria Aspart, 3-31 Roll in l Human 22:44: palms of [place] 00 hands gently; Do not shake vigorously . (Same as: NovoLOG) "single patient use only" WASTE: F/P - Black; E - [facility] Trash Bin Stable for 28 days at room temperatur e. Expires in days from ____Date sodium No 45 mmol, Memoria phosphate + 3-31 15 mL, l sodium 22:44: Route: [place] chloride 00 IVPB, PRN, 0.9% INJ Dosing 250 mL Weight 103.653, kg, PRN Abnormal Lab Result, Start date: 06/24/16 17:44:00 CDT, Duration: 30 day, Stop date: 07/24/16 17:43:00 CDT, FOR ICU USE ONLY potassium No Notes: Memori a phosphate 3-31 (Same as: l 22:44: K [place] 00 Phosphate) sodium No 15 mmol, Memoria phosphate 3-31 250 mL, l 22:44: Route: [place] 00 IVPB, Drug form: INJ, PRN, Dosing [...] Laxative 3-31 (Same As: l 22:44: Dulcolax, [place] 00 Bisco-Lax) Lactulose No Notes: Memori a 667 MG/ML 3-31 (Same l Oral 22:44: as:Chronul [place] Solution 00 ac) albumin No Notes: Memoria human 5% 3-31 LOT#: l intravenous 22:44: [place] solution 00 ___ Mfg: WASTE: F/P - [...] Memoria 06-24 (Same as: l 22:44: Zofran) [place] 00 MEDICATION WASTE Product Size: 4 mg Product Wasted: ___ mg Xopenex No 1.25 mg, Memori a 06-24 Route: l 22:44: NEB, PRN, Dosing Weight 102.926, kg, PRN Respirator y Protocol, Start date: 06/24/16 17:44:00 CDT, Duration: 30 day, Stop date: 07/24/16 17:43:00 CDT Morphine No Notes: Memoria 06-24 (Same l 22:44: as:MORPhin e Sulfate) Albuterol No Notes: Memori a 0.833 MG/ML 06-24 (Same as: l / 22:44: Duoneb) Ipratropium 00 [place] 0.167 MG/ML Inhalant Solution Glucagon No 1 mg, Memoria 06-24 Route: IM, l 22:44: Drug form: PDR/INJ, PRN, Dosing Weight 103.653, [...] Acetaminoph No Notes: Do M emoria en 3-31 not exceed l 22:44: 4 gm/day. [place] (Same as: Tylenol) PHOS-NaK No Notes: Memoria 3-31 (Same as: l 22:44: Phos-NaK) Each 1.5 gm pkt has 250mg phosphorou s. Mix w/2.5oz water and stir. potassium No Notes: Memori a phosphate + - (Same as: l sodium 22:44: K chloride 00 Phosphate. 0.9% INJ ) 1 mMol 250 mL phoshate has 1.47 mEq potassium Infuse over 4 hours Calcium No Notes: Memoria Gluconate - WASTE: F/P l 22:44: - Sink; E - [facility] Trash Bin Magnesium No Notes: Memori a Oxide 3-31 (Same as: l 22:44: Mag-Ox 400) Magnesium oxide 680ey=622c g elemental magnesium Dose=____m g magnesium oxide (___mg elemental magnesium) Magnesium No Notes: Memori a Sulfate 3-31 WASTE: F/P l 22:44: - Sink; E - [facility] Trash Bin potassium No Notes: Memori a chloride 3-31 (Same as: l 22:44: Potassium [place] 00 [...] 3-31 15 mL, l sodium 22:44: Route: [place] chloride 00 IVPB, PRN, 0.9% INJ Dosing 250 mL Weight 103.653, kg, PRN Abnormal Lab Result, Start date: 06/24/16 17:44:00 CDT, Duration: 30 day, Stop date: 07/24/16 17:43:00 CDT, FOR ICU USE ONLY potassium No Notes: Memori a phosphate 3-31 (Same as: l 22:44: K [place] Phosphate) sodium No 15 mmol, Memoria phosphate 3-31 250 mL, l 22:44: Route: Ty 00 IVPB, Drug form: INJ, PRN, Dosing Weight 103.653, kg, PRN Abnormal Lab Result, Start date: 06/24/16 17:44:00 CDT, Duration: 30 day, Stop date: 07/24/16 17:43:00 CDT, FOR ICU USE ONLY Naloxone No Notes: Memoria 3-31 Same as l 22:44: Narcan [place] 00 Saline No Notes: Memoria Flush 0.9% 3-31 (Same as: l 22:44: BD [place] 00 Posiflush) Dulcolax No Notes: Memoria Laxative 3-31 (Same As: l 22:44: Dulcolax, Ty 00 [...] Memoria 06-24 (Same as: l 22:44: Zofran) MEDICATION WASTE Product Size: 4 mg Product Wasted: ___ mg Xopenex No 1.25 mg, Memori a 06-24 Route: l 22:44: NEB, PRN, Dosing Weight 102.926, kg, PRN Respirator y Protocol, Start date: 06/24/16 17:44:00 CDT, Duration: 30 day, Stop date: 07/24/16 17:43:00 CDT Morphine No Notes: Memoria 06-24 (Same l 22:44: as:MORPhin e Sulfate) Albuterol No Notes: Memori a 0.833 MG/ML 06-24 (Same as: l / 22:44: Duoneb) Ipratropium 00 [place] 0.167 MG/ML Inhalant Solution Glucagon No 1 mg, Memoria 06-24 Route: IM, l 22:44: Drug form: PDR/INJ, PRN, Dosing Weight 103.653, kg, PRN Blood Glucose Results, Start date: 06/24/16 17:44:00 CDT, Duration: 30 day, Stop date: 07/24/16 17:43:00 CDT Nitroglycer No Notes: Danilo jerry in 06-24 (Same l 22:44: as:Nitroqu ick, Nitrostat) "Do Not Crush" Sublingual tablet Docusate No Notes: Memoria 06-24 (Same as: l 22:44: Colace) (Do Not Crush) Ondansetron No Notes: Danilo jerry 3-31 (Same as: l 22:44: Zofran) [place] 00 MEDICATION WASTE Product Size: 4 mg Product Wasted: ___ mg Dextrose No 25 gm, 50 Danilo jerry 50% Syringe 3-31 mL, Route: l 22:44: IVP, Drug Form: INJ, Dosing Weight 103.653, kg, PRN, PRN Blood Glucose Results, Start date: 06/24/16 17:44:00 CDT, Duration: 30 day, Stop date: 07/24/16 17:43:00 CDT Acetaminoph No Notes: Do M emoria en 3-31 not exceed l 22:44: 4 gm/day. [place] (Same as: Tylenol) PHOS-NaK No Notes: Memoria 3-31 (Same as: l 22:44: Phos-NaK) Each 1.5 gm pkt has 250mg phosphorou s. Mix w/2.5oz water and stir. potassium No Notes: Memori a phosphate + 3- (Same as: l sodium 22:44: K chloride 00 Phosphate. 0.9% INJ ) 1 mMol 250 mL phoshate has 1.47 mEq potassium Infuse over 4 hours Calcium No Notes: Memoria Gluconate 3-31 WASTE: F/P l 22:44: - Sink; E - [facility] Trash Bin Magnesium No Notes: Memori a Oxide 3-31 (Same as: l 22:44: Mag-Ox [place] 00 400) Magnesium oxide 764rp=607u g elemental magnesium Dose=____m g magnesium oxide (___mg elemental magnesium) Magnesium No Notes: Memori a Sulfate 3-31 WASTE: F/P l 22:44: - Sink; E - [facility] Trash Bin potassium No Notes: Memori a chloride 3-31 (Same as: l 22:44: Potassium [place] 00 Chloride) Calcium No Notes: Memoria Carbonate 3-31 (Same As: l 500 MG 22:44: Tums) [place] Chewable 00 Calcium Tablet Carbonate 500 mg = 200 mg elemental calcium Dose = mg calcium carbonate ( mg elemental calcium) Insulin, No Notes: Memoria Aspart, 3-31 Roll in l Human 22:44: palms of [place] 00 hands gently; Do not shake vigorously . (Same as: NovoLOG) "single patient use only" WASTE: F/P - Black; E - [facility] Trash Bin Stable for 28 days at room temperatur e. Expires in days from ____Date sodium No 45 mmol, Memoria phosphate + 3-31 15 mL, l sodium 22:44: Route: [place] chloride 00 IVPB, PRN, 0.9% INJ Dosing 250 mL Weight 103.653, kg, PRN Abnormal Lab Result, Start date: 06/24/16 17:44:00 CDT, Duration: 30 day, Stop date: 07/24/16 17:43:00 CDT, FOR ICU USE ONLY potassium No Notes: Memori a phosphate 3-31 (Same as: l 22:44: K [place] Phosphate) sodium No 15 mmol, Memoria phosphate [...] Laxative 3-31 (Same As: l 22:44: Dulcolax, [place] 00 Bisco-Lax) Lactulose No Notes: Memori a [...] a 06-24 Route: l 22:44: NEB, PRN, [place] 00 Dosing Weight 102.926, kg, PRN Respirator y Protocol, Start date: 06/24/16 17:44:00 CDT, Duration: 30 day, Stop date: 07/24/16 17:43:00 CDT Morphine No Notes: Memoria 06-24 (Same l 22:44: as:MORPhin [place] 00 e Sulfate) Albuterol No Notes: Memori a 0.833 MG/ML 06-24 (Same as: l / 22:44: Duoneb) [place] Ipratropium 00 [place] 0.167 MG/ML Inhalant Solution Glucagon No 1 mg, Memoria 06-24 Route: IM, l 22:44: Drug form: Ty PDR/INJ, PRN, Dosing Weight 103.653, kg, PRN Blood Glucose Results, Start date: 06/24/16 17:44:00 CDT, Duration: 30 day, Stop date: 07/24/16 17:43:00 CDT Nitroglycer No Notes: Danilo jerry in 06-24 (Same l 22:44: as:Nitroqu [place] ick, Nitrostat) "Do Not Crush" Sublingual tablet Docusate No Notes: Memoria 06-24 (Same as: l 22:44: Colace) [place] (Do Not Crush) Ondansetron No Notes: Danilo jerry 3-31 (Same as: l 22:44: Zofran) MEDICATION WASTE Product Size: 4 mg Product Wasted: ___ mg Dextrose No 25 gm, 50 Danilo jerry 50% Syringe 3-31 mL, Route: l 22:44: IVP, Drug Form: INJ, Dosing Weight 103.653, kg, PRN, PRN Blood Glucose Results, Start date: 06/24/16 17:44:00 CDT, Duration: 30 day, Stop date: 07/24/16 17:43:00 CDT Acetaminoph No Notes: Do M emoria en 3-31 not exceed l 22:44: 4 gm/day. [place] (Same as: Tylenol) PHOS-NaK No Notes: Memoria 3-31 (Same as: l 22:44: Phos-NaK) Each 1.5 gm pkt has 250mg phosphorou s. Mix w/2.5oz water and stir. potassium No Notes: Memori a phosphate + - (Same as: l sodium 22:44: K chloride 00 Phosphate. 0.9% INJ ) 1 mMol 250 mL phoshate has 1.47 mEq potassium Infuse over 4 hours Calcium No Notes: Memoria Gluconate 3-31 WASTE: F/P l 22:44: - Sink; E - [facility] Trash Bin Magnesium No Notes: Memori a Oxide 3-31 (Same as: l 22:44: Mag-Ox [place] 00 400) Magnesium oxide 557yt=940o g elemental magnesium Dose=____m g magnesium oxide (___mg elemental magnesium) Magnesium No Notes: Memori a Sulfate 3-31 WASTE: F/P l 22:44: - Sink; E - [facility] Trash Bin potassium No Notes: Memori a chloride 3-31 (Same as: l 22:44: Potassium [place] 00 Chloride) Calcium No Notes: Memoria Carbonate 3-31 (Same As: l 500 MG 22:44: Tums) [place] Chewable 00 Calcium Tablet Carbonate 500 mg = 200 mg elemental calcium Dose = mg calcium carbonate ( mg elemental calcium) Insulin, No Notes: Memoria Aspart, 3-31 Roll in l Human 22:44: palms of [place] 00 hands gently; Do not shake vigorously . (Same as: NovoLOG) "single patient use only" WASTE: F/P - Black; E - [facility] Trash Bin Stable for 28 days at room temperatur e. Expires in days from ____Date sodium No 45 mmol, Memoria phosphate + 3-31 15 mL, l sodium 22:44: Route: [place] chloride 00 IVPB, PRN, 0.9% INJ Dosing 250 mL Weight 103.653, kg, PRN Abnormal Lab Result, Start date: 06/24/16 17:44:00 CDT, Duration: 30 day, Stop date: 07/24/16 17:43:00 CDT, FOR ICU USE ONLY potassium No Notes: Memori a phosphate 3-31 (Same as: l 22:44: K [place] 00 Phosphate) sodium No 15 mmol, Memoria [...] 0.9% 3-31 (Same as: l 22:44: BD [place] 00 Posiflush) Dulcolax No Notes: Memoria Laxative 3-31 (Same As: l 22:44: Dulcolax, Ty 00 [...] exceed l Codeine 22:44: 4gm/day of Herm jigan Phosphate 00 acetaminop 30 MG Oral hen. [...] Notes: Memoria 06-24 (Same l 22:44: as:MORPhin [place] e Sulfate) Albuterol No Notes: Memori a 0.833 MG/ML 06-24 (Same as: l / 22:44: Duoneb) [place] Ipratropium 00 [place] 0.167 MG/ML Inhalant Solution Glucagon No 1 [...] Not Crush) Ondansetron No Notes: Danilo jerry - (Same as: l 22:44: Zofran) MEDICATION WASTE [...] CDT vasopressin No Route: IV, Memoria (ANES) 3- Drug form: l 22:40: INJ, ONCE, Stop date: 06/24/16 17:40:00 CDT vasopressin No Route: IV, Memoria (ANES) 06-24 Drug form: l 22:40: INJ, ONCE, Stop date: 06/24/16 17:40:00 CDT vasopressin No Route: IV, Memoria (ANES) 06-24 Drug form: l 22:40: INJ, ONCE, Ty 00 Stop date: 06/24/16 17:40:00 CDT ondansetron 20170 No Route: IV, Memoria (ANES) 06-24 Drug form: l 22:23: INJ, ONCE, Ty 00 Stop date: 06/24/16 17:23:00 CDT ondansetron 2017 No Route: IV, Memoria (ANES) 06-24 Drug form: l 22:23: INJ, ONCE, Ty 00 Stop date: 06/24/16 17:23:00 CDT ondansetron 20170 No Route: IV, Memoria (ANES) 06-24 Drug form: l 22:23: INJ, ONCE, Stop date: 06/24/16 17:23:00 CDT ondansetron 0 No Route: IV, Memoria (ANES) 06-24 Drug form: l 22:23: INJ, ONCE, Stop date: 06/24/16 17:23:00 CDT ondansetron 20170 No Route: IV, Memoria (ANES) 06-24 Drug form: l 22:23: INJ, ONCE, Stop date: 06/24/16 17:23:00 CDT ondansetron 0 No Route: IV, Memoria (ANES) 06-24 Drug form: l 22:23: INJ, ONCE, Stop date: 06/24/16 17:23:00 CDT ondansetron 20170 No Route: IV, Memoria (ANES) 06-24 Drug form: l 22:23: INJ, ONCE, [place] 00 Stop date: 06/24/16 17:23:00 CDT protamine 0 No Route: IV, Me moria (ANES) 06-24 Drug form: l 22:03: INJ, ONCE, Ty 00 Stop date: 06/24/16 17:03:00 CDT protamine 0 No Route: IV, Me moria (ANES) 06-24 Drug form: l 22:03: INJ, ONCE, Stop date: 06/24/16 17:03:00 CDT protamine 20170 No Route: IV, Me moria (ANES) 3-31 Drug form: l 22:03: INJ, ONCE, [place] 00 Stop date: 06/24/16 17:03:00 CDT protamine 20170 No Route: IV, Me moria (ANES) 3-31 Drug form: l 22:03: INJ, ONCE, Stop date: 06/24/16 17:03:00 CDT protamine No Route: IV, Me moria (ANES) 3-31 Drug form: l 22:03: INJ, ONCE, [place] 00 Stop date: 06/24/16 17:03:00 CDT protamine No Route: IV, Me moria (ANES) 3-31 Drug form: l 22:03: INJ, ONCE, Stop date: 06/24/16 17:03:00 CDT protamine 0 No Route: IV, moria (ANES) 3- Drug form: l 22:03: INJ, ONCE, Stop date: 06/24/16 17:03:00 CDT calcium 0 No Route: IV, Danilo jerry chloride 3-31 Drug form: l (ANES) 21:48: INJ, ONCE, [place] Stop date: 06/24/16 16:48:00 CDT calcium 2016-0 No Route: IV, Danilo jerry chloride 3-31 Drug form: l (ANES) 21:48: INJ, ONCE, [place] Stop date: 06/24/16 16:48:00 CDT calcium 2017-0 No Route: IV, Danilo jerry chloride 3-31 Drug form: l (ANES) 21:48: INJ, ONCE, [place] Stop date: 06/24/16 16:48:00 CDT calcium 2017-0 No Route: IV, Danilo jerry chloride 3-31 Drug form: l (ANES) 21:48: INJ, ONCE, [place] Stop date: 06/24/16 16:48:00 CDT calcium 2017-0 No Route: IV, Danilo jerry chloride 3-31 Drug form: l (ANES) 21:48: INJ, ONCE, [place] Stop date: 06/24/16 16:48:00 CDT calcium 2016-0 No Route: IV, Danilo jerry chloride 06-24 Drug form: l (ANES) 21:48: INJ, ONCE, [place] Stop date: 06/24/16 16:48:00 CDT calcium 2017-0 No Route: IV, Danilo jerry chloride 06-24 Drug form: l (ANES) 21:48: INJ, ONCE, [place] Stop date: 06/24/16 16:48:00 CDT nitroglycer 0 No Route: IV, Memoria in (ANES) 06-24 Drug form: l 20:17: INJ, ONCE, [place] 00 Stop date: 06/24/16 15:17:00 CDT nitroglycer 2016-0 No Route: IV, Memoria in (ANES) 06-24 Drug form: l 20:17: INJ, ONCE, [place] 00 Stop date: 06/24/16 15:17:00 CDT nitroglycer 2017-0 No Route: IV, Memoria in (ANES) 06-24 Drug form: l 20:17: INJ, ONCE, Stop date: 06/24/16 15:17:00 CDT nitroglycer 0 [...] 00 Stop date: 06/24/16 15:17:00 CDT nitroglycer 2016-0 No Route: IV, Memoria in (ANES) 06-24 Drug form: l 20:17: INJ, ONCE, Ty 00 Stop date: 06/24/16 15:17:00 CDT heparin 2017-0 No Route: IV, Danilo jerry (ANES) 06-24 Drug form: l 20:07: INJ, ONCE, [place] 00 Stop date: 06/24/16 15:07:00 CDT heparin 2017-0 No Route: IV, Danilo jerry (ANES) 06-24 Drug form: l 20:07: INJ, ONCE, Ty Stop date: 06/24/16 15:07:00 CDT heparin 2017-0 No Route: IV, Danilo jerry (ANES) 06-24 Drug form: l 20:07: INJ, ONCE, [place] 00 Stop date: 06/24/16 15:07:00 CDT heparin 2017-0 No Route: IV, Danilo jerry (ANES) 06-24 Drug form: l 20:07: INJ, ONCE, [place] 00 Stop date: 06/24/16 15:07:00 CDT heparin 2017-0 No Route: IV, Danilo jerry (ANES) 3 Drug form: l 20:07: INJ, ONCE, Ty 00 Stop date: 06/24/16 15:07:00 CDT heparin 2017-0 No Route: IV, Danilo jerry (ANES) 06-24 Drug form: l 20:07: INJ, ONCE, Ty 00 Stop date: 06/24/16 15:07:00 CDT heparin 2017-0 No Route: IV, Danilo jerry (ANES) 06-24 Drug form: l 20:07: INJ, ONCE, Ty 00 Stop date: 06/24/16 15:07:00 CDT fentaNYL 2017-0 No Route: IV, Mem oria (ANES) 06-24 Drug form: l 19:31: INJ, ONCE, Ty 00 Stop date: 06/24/16 14:31:00 CDT fentaNYL 2017-0 No Route: IV, Mem oria (ANES) 06-24 Drug form: l 19:31: INJ, ONCE, Ty Stop date: 06/24/16 14:31:00 CDT fentaNYL 2017-0 No Route: IV, Mem oria (ANES) 3 Drug form: l 19:31: INJ, ONCE, Ty Stop date: 06/24/16 14:31:00 CDT fentaNYL 2017-0 No Route: IV, Mem oria (ANES) 3 Drug form: l 19:31: INJ, ONCE, Ty 00 Stop date: 06/24/16 14:31:00 CDT fentaNYL 2017-0 No Route: IV, Mem oria (ANES) 06-24 Drug form: l 19:31: INJ, ONCE, Stop date: 06/24/16 14:31:00 CDT fentaNYL No Route: IV, Mem oria (ANES) 06-24 Drug form: l 19:31: INJ, ONCE, Stop date: 06/24/16 14:31:00 CDT fentaNYL No Route: IV, Mem oria (ANES) 06-24 Drug form: l 19:31: INJ, ONCE, Stop date: 06/24/16 14:31:00 CDT ePHEDrine No Route: IV, Me moria (ANES) 06-24 Drug form: l 19:11: INJ, ONCE, Stop date: 06/24/16 14:11:00 CDT cefuroxime No Route: IV, M emoria (ANES) 06-24 Drug form: l 19:11: INJ, ONCE, Stop date: 06/24/16 14:11:00 CDT ePHEDrine 0 No Route: IV, Me moria (ANES) 06-24 Drug form: l 19:11: INJ, ONCE, Stop date: 06/24/16 14:11:00 CDT cefuroxime 0 No Route: IV, M emoria (ANES) 06-24 Drug form: l 19:11: INJ, ONCE, Stop date: 06/24/16 14:11:00 CDT ePHEDrine 0 No Route: IV, Me moria (ANES) 06-24 Drug form: l 19:11: INJ, ONCE, Stop date: 06/24/16 14:11:00 CDT cefuroxime 0 No Route: IV, M emoria (ANES) 06-24 Drug form: l 19:11: INJ, ONCE, Stop date: 06/24/16 14:11:00 CDT ePHEDrine 0 No Route: IV, Me moria (ANES) [...] 06-24 Drug form: l 19:06: INJ, ONCE, [place] 00 Stop date: 06/24/16 14:06:00 CDT rocuronium 2017-0 [...] 06-24 Drug form: l 19:06: INJ, ONCE, [place] 00 Stop date: 06/24/16 14:06:00 CDT propofol 2017-0 No Route: IV, Mem oria (ANES) 06-24 Drug form: l 19:06: INJ, ONCE, [place] 00 Stop date: 06/24/16 14:06:00 CDT Amicar 2017-0 No Route: IV, Memor ia (ANES) 06-24 Drug form: l (ANES) + 18:35: INJ, [place] Dosing Weight 103.7, kg, Start date: 06/24/16 13:35:00 CDT, Stop date: 06/24/16 14:35:00 CDT Amicar 2017-0 No Route: IV, Memor ia (ANES) - Drug form: l (ANES) + 18:35: INJ, [place] Dosing Weight 103.7, kg, Start date: 06/24/16 13:35:00 CDT, Stop date: 06/24/16 14:35:00 CDT Amicar 2017-0 No Route: IV, Memor ia (ANES) 06-24 Drug form: l (ANES) + 18:35: INJ, Ty 00 Dosing Weight 103.7, kg, Start date: 06/24/16 13:35:00 CDT, Stop date: 06/24/16 14:35:00 CDT Amicar 2017-0 No Route: IV, Memor ia (ANES) 06-24 Drug form: l (ANES) + 18:35: INJ, [place] Dosing Weight 103.7, kg, Start date: 06/24/16 13:35:00 CDT, Stop date: 06/24/16 14:35:00 CDT Amicar 2017-0 No Route: IV, Memor ia (ANES) 3- Drug form: l (ANES) + 18:35: INJ, [place] Dosing Weight 103.7, kg, Start date: 06/24/16 13:35:00 CDT, Stop date: 06/24/16 14:35:00 CDT Amicar 2017-0 No Route: IV, Memor ia (ANES) 3- Drug form: l (ANES) + 18:35: INJ, [place] Dosing Weight 103.7, kg, Start date: 06/24/16 13:35:00 CDT, Stop date: 06/24/16 14:35:00 CDT Amicar 2016-0 No Route: IV, Memor ia (ANES) 3- Drug form: l (ANES) + 18:35: INJ, Ty Dosing Weight 103.7, kg, Start date: 06/24/16 [...] CDT, Stop date: 06/24/16 14:29:00 CDT vancomycin 0 No Route: IV, M emoria (ANES) 3-31 Drug form: l (ANES) 18:29: INJ, Start Soumya date: 06/24/16 13:29:00 CDT, Stop date: 06/24/16 14:29:00 CDT vancomycin 0 No Route: IV, M emoria (ANES) 3-31 Drug form: l (ANES) 18:29: INJ, Start Soumya date: 06/24/16 13:29:00 CDT, Stop date: 06/24/16 14:29:00 CDT vancomycin 0 No Route: IV, M emoria (ANES) 3-31 Drug form: l (ANES) 18:29: INJ, Start Soumya nn date: 06/24/16 13:29:00 CDT, Stop date: 06/24/16 14:29:00 CDT vancomycin 0 No Route: IV, M emoria (ANES) 3-31 Drug form: l (ANES) 18:29: INJ, Start Soumya nn date: 06/24/16 13:29:00 CDT, Stop date: 06/24/16 14:29:00 CDT vancomycin 20170 No Route: IV, Aimee lenzria (ANES) 3-31 Drug form: l (ANES) 18:29: INJ, Start Soumya nn 00 date: 06/24/16 13:29:00 CDT, Stop date: 06/24/16 14:29:00 CDT midazolam 0 No Route: IV, Me moria (ANES) 3-31 Drug form: l 18:11: SOLN, [place] 00 ONCE, Stop date: 06/24/16 13:11:00 CDT morphine 0 No Route: IV, Mem oria Sulfate 3-31 Drug form: l (ANES) 18:11: INJ, ONCE, Soumya nn Stop date: 06/24/16 13:11:00 CDT midazolam 20170 No Route: IV, Me moria (ANES) 3-31 Drug form: l 18:11: SOLN, Ty 00 ONCE, Stop date: 06/24/16 13:11:00 CDT morphine 0 No Route: IV, Mem oria Sulfate 3-31 Drug form: l (ANES) 18:11: INJ, ONCE, [place]mya nn Stop date: 06/24/16 13:11:00 CDT midazolam 2017-0 No Route: IV, Me moria (ANES) 3-31 Drug form: l 18:11: SOLN, Ty 00 ONCE, Stop date: 06/24/16 13:11:00 CDT morphine 20170 No Route: IV, Mem oria Sulfate 3-31 Drug form: l (ANES) 18:11: INJ, ONCE, [place]my[place] nn Stop date: 06/24/16 13:11:00 CDT midazolam 2017-0 No Route: IV, Me moria (ANES) 3-31 Drug form: l 18:11: SOLN, Ty 00 ONCE, Stop date: 06/24/16 13:11:00 CDT morphine 2017-0 No Route: IV, Mem oria Sulfate 3-31 Drug form: l (ANES) 18:11: INJ, ONCE, [place] nn Stop date: 06/24/16 13:11:00 CDT midazolam 2017-0 No Route: IV, Me moria (ANES) 3-31 Drug form: l 18:11: SOLN, [place] 00 ONCE, Stop date: 06/24/16 13:11:00 CDT morphine 0 No Route: IV, Mem oria Sulfate 3-31 Drug form: l (ANES) 18:11: INJ, ONCE, Soumy[place] nn 00 Stop date: 06/24/16 13:11:00 CDT midazolam 0 No Route: IV, Me moria (ANES) 3-31 Drug form: l 18:11: SOLN, [place] 00 ONCE, Stop date: 06/24/16 13:11:00 CDT morphine 0 No Route: IV, Mem oria Sulfate 3-31 Drug form: l (ANES) 18:11: INJ, ONCE, Soumya nn Stop date: 06/24/16 13:11:00 CDT midazolam No Route: IV, Me moria (ANES) 3-31 Drug form: l 18:11: SOLN, [place] 00 ONCE, Stop date: 06/24/16 13:11:00 CDT morphine 0 No Route: IV, Mem oria Sulfate 3-31 Drug form: l (ANES) 18:11: INJ, ONCE, Soumya nn Stop date: 06/24/16 13:11:00 CDT Isolyte S 0 No Route: IV, Me moria (PH 7.4) 3-31 Total l 1000 mL 17:39: Volume: Ty (ANES) 00 1,000, Start date: 06/24/16 12:39:00 CDT, Stop date: 06/24/16 13:39:00 CDT Isolyte S 0 No Route: IV, Me moria (PH 7.4) 3-31 Total l 1000 mL 17:39: Volume: [place] (ANES) 00 1,000, Start date: 06/24/16 12:39:00 CDT, Stop date: 06/24/16 13:39:00 CDT Isolyte S 0 No Route: IV, Me moria (PH 7.4) 3-31 Total l 1000 mL 17:39: Volume: Ty (ANES) 00 1,000, Start date: 06/24/16 12:39:00 CDT, Stop date: 06/24/16 13:39:00 CDT Isolyte S 2017-0 No Route: IV, Me moria (PH 7.4) 3-31 Total l 1000 mL 17:39: Volume: [place] (ANES) 00 1,000, Start date: 06/24/16 12:39:00 CDT, Stop date: 06/24/16 13:39:00 CDT Isolyte S 2016-0 No Route: IV, Me moria (PH 7.4) 3-31 Total l 1000 mL 17:39: Volume: Ty (ANES) 00 1,000, Start date: 06/24/16 12:39:00 CDT, Stop date: 06/24/16 13:39:00 CDT Isolyte S 2016-0 No Route: IV, Me moria (PH 7.4) 3-31 Total l 1000 mL 17:39: Volume: [place] (ANES) 00 1,000, Start date: 06/24/16 12:39:00 CDT, Stop date: 06/24/16 13:39:00 CDT Isolyte S 2016-0 No Route: IV, Me moria (PH 7.4) [...] 3-29 250 ml/hr, l 0.154 12:34: Infuse [place] MEQ/ML 00 Over: 1 Injectable hr, Route: [...] 3-29 250 ml/hr, l 0.154 12:34: Infuse [place] MEQ/ML 00 Over: 1 Injectable hr, Route: [...] 3-29 250 ml/hr, l 0.154 12:34: Infuse [place] MEQ/ML 00 Over: 1 Injectable hr, Route: [...] a 3-26 (Same as: l 23:00: Lopressor) [place] Lopressor No Notes: Memori a 3-26 (Same as: l 23:00: Lopressor) [place] 00 Lopressor No Notes: Memori a 3-26 (Same as: l 23:00: Lopressor) [place] 00 Lopressor No Notes: Memori a 3-26 (Same as: l 23:00: Lopressor) [place] 00 Lopressor No Notes: Memori a 3-26 (Same as: l 23:00: Lopressor) [place] 00 Lopressor No Notes: Memori a 3-26 (Same as: l 23:00: Lopressor) [place] 00 Lopressor No Notes: Memori a 3-26 (Same as: l 23:00: Lopressor) [place] 00 Lopressor No Notes: Memori a 3-26 (Same as: l 22:00: Lopressor) [place] 00 Lopressor No Notes: Memori a 3-26 (Same as: l 22:00: Lopressor) [place] 00 Lopressor No Notes: Memori a 3-26 (Same as: l 22:00: Lopressor) [place] Lopressor No Notes: Memori a 3-26 (Same as: l 22:00: Lopressor) [place] Lopressor No Notes: Memori a 3-26 (Same as: l 22:00: Lopressor) [place] Lopressor No Notes: Memori a 3-26 (Same as: l 22:00: Lopressor) [place] 00 Lopressor No Notes: Memori a 3-26 (Same as: l 22:00: Lopressor) [place] 00 Levemir No Notes: Memoria 3-25 Same as l 02:00: Le[place] Do not hold insulin without contacting prescriber WASTE: F/P - Black; E - Municipal Trash Bin "single patient use only" Saline No Notes: Memoria Flush 0.9% 3-25 (Same as: l 02:00: BD [place] 00 Posiflush) Le[place]mir No Notes: Memoria 3-25 Same as l 02:00: [place] Do [place] 00 not hold insulin without contacting prescriber WASTE: F/P - Black; E - Municipal Trash Bin "single patient use only" Saline No Notes: Memoria Flush 0.9% 3-25 (Same as: l 02:00: BD [place] 00 Posiflush) Levemir No Notes: Memoria 3-25 Same as l 02:00: Levemir Do [place] 00 not hold insulin without contacting prescriber WASTE: F/P - Black; E - Municipal Trash Bin "single patient use only" Saline No Notes: Memoria Flush 0.9% 3-25 (Same as: l 02:00: BD [place] 00 Posiflush) Levemir No Notes: Memoria 3-25 Same as l 02:00: Levemir Do [place] 00 not hold insulin without contacting prescriber WASTE: F/P - Black; E - Municipal Trash Bin "single patient use only" Saline No Notes: Memoria Flush 0.9% 3-25 (Same as: l 02:00: BD [place] 00 Posiflush) Levemir No Notes: Memoria 3-25 Same as l 02:00: [place] Do [place] 00 not hold insulin without contacting prescriber WASTE: F/P - Black; E - Municipal Trash Bin "single patient use only" Saline No Notes: Memoria Flush 0.9% 3-25 (Same as: l 02:00: BD [place] 00 Posiflush) Levemir No Notes: Memoria 3-25 Same as l 02:00: Levemir Do [place] 00 not hold insulin without contacting prescriber WASTE: F/P - Black; E - Municipal Trash Bin "single patient use only" Saline No Notes: Memoria Flush 0.9% 3-25 (Same as: l 02:00: BD [place] 00 Posiflush) Levemir No Notes: Memoria 3-25 [...] 00:00: Ancef [place] 00 Mupirocin No 1 Nadine edge ia 0.02 MG/MG 3-25 Route: l Topical 00:00: NASAL, [place] Ointment 00 ONCALL, Drug form: OINT, Start date: 06/17/16 19:00:00 CDT, Duration: 30 day, Stop date: 07/17/16 18:59:00 CDT Cefazolin No Notes: Memori a 3-25 Same as: l 00:00: Ancef [place] 00 Mupirocin 2017-0 No 1 appl, Memor ia 0.02 MG/MG 3-25 Route: l Topical 00:00: NASAL, Ty Ointment 00 ONCALL, Drug form: OINT, Start date: 06/17/16 19:00:00 CDT, Duration: 30 day, Stop date: 07/17/16 18:59:00 CDT Cefazolin 2017-0 No Notes: Memori a 3-25 Same as: l 00:00: Ancef [place] Mupirocin 2017-0 No 1 appl, Memor ia 0.02 MG/MG 3-25 Route: l Topical 00:00: NASAL, [place] Ointment 00 ONCALL, Drug form: OINT, Start date: 06/17/16 19:00:00 CDT, Duration: 30 day, Stop date: 07/17/16 18:59:00 CDT Cefazolin 2017-0 No Notes: Memori a 3-25 Same as: l 00:00: Ancef [place] Mupirocin 2017-0 No 1 appl, Memor ia 0.02 MG/MG 3-25 Route: l Topical 00:00: NASAL, Ty Ointment 00 ONCALL, Drug form: OINT, Start date: 06/17/16 19:00:00 CDT, Duration: 30 day, Stop date: 07/17/16 18:59:00 CDT Cefazolin 2017-0 No Notes: Memori a 3-25 Same as: l 00:00: Ancef [place] Mupirocin 2017-0 No 1 appl, Memor ia 0.02 MG/MG 3-25 Route: l Topical 00:00: NASAL, Ty Ointment 00 ONCALL, Drug form: OINT, Start date: 06/17/16 19:00:00 CDT, Duration: 30 day, Stop date: 07/17/16 18:59:00 CDT Cefazolin 2017-0 No Notes: Memori a 3-25 Same as: l 00:00: Ancef [place] Mupirocin 2017-0 No 1 appl, Memor ia 0.02 MG/MG 3-25 Route: l Topical 00:00: NASAL, [place] Ointment 00 ONCALL, Drug form: OINT, Start date: 06/17/16 19:00:00 CDT, Duration: 30 day, Stop date: 07/17/16 18:59:00 CDT Cefazolin 2016-0 No Notes: Memori a 3-25 Same as: l 00:00: Ancef [place] 00 Mupirocin No 1 appl, Memor ia [...] 0.9% 3-24 (Same as: l 23:54: BD Posiflush) metoprolol No 12.5 mg, Mem oria tartrate 3-24 Route: PO, l 23:54: Drug form: [place] 00 TAB, Q12H, Dosing Weight 102.926, kg, Priority: NOW, Start date: 06/17/16 18:54:00 CDT, Duration: 30 day, Stop date: 07/17/16 9:00:00 CDT sodium 2016-0 No 250 mL, Memoria chloride 3-24 Rate: [...] l 23:54: BD [place] 00 Posiflush) metoprolol 2017-0 No 12.5 mg, Mem oria tartrate 3-24 Route: PO, l 23:54: Drug form: [place] 00 TAB, Q12H, Dosing Weight 102.926, kg, [...] 18:53:00 CDT, Replace Every: 24 hr Saline 2016-0 No Notes: Memoria Flush 0.9% 3-24 (Same as: l 23:54: BD [place] 00 Posiflush) metoprolol 2016-0 No 12.5 mg, Mem oria tartrate 3-24 [...] 0.9% 3-24 (Same as: l 23:54: BD [place] 00 Posiflush) metoprolol 2017-0 No 12.5 mg, Mem oria tartrate 3-24 Route: PO, l 23:54: Drug form: [place] 00 TAB, Q12H, Dosing Weight 102.926, kg, [...] l 23:54: BD [place] 00 Posiflush) metoprolol 2016-0 No 12.5 mg, Mem oria tartrate 3-24 [...] day, Stop date: 07/17/16 9:00:00 CDT sodium 2017- No 250 mL, Memoria chloride 3-24 Rate: On l 0.9% INJ 23:54: call for Soumya nn 250 mL 00 use with blood product administra tion, Dosing Weight 102.926, kg, Route: IV, Total Volume: 250, Start Date: 06/17/16 18:54:00 CDT, Duration: 30 day, Stop date: 07/17/16 18:53:00 CDT, Replace Every: 24 hr Saline No Notes: Memoria Flush 0.9% 3-24 (Same as: l 23:54: BD [place] 00 Posiflush) metoprolol No 12.5 mg, Mem oria tartrate 3-24 Route: PO, l 23:54: Drug form: Ty TAB, Q12H, Dosing Weight 102.926, kg, Priority: [...] ia 3-24 Nurse to l 14:00: ensure [place] 00 documentat ion of patient education per anticoagul ation policy. (Same as: Lovenox) Enoxaparin No Notes: Memor ia 3-24 Nurse to l 14:00: ensure [place] 00 documentat ion of patient education per anticoagul ation policy. (Same as: Lovenox) Enoxaparin No Notes: Memor ia 3-24 Nurse to l 14:00: ensure [place] 00 documentat ion of patient education per anticoagul ation policy. (Same as: Lovenox) Enoxaparin No Notes: Memor ia 3-24 Nurse to l 14:00: ensure [place] 00 documentat ion of patient education per anticoagul ation policy. (Same as: Lovenox) Enoxaparin No Notes: Memor ia 3-24 Nurse to l 14:00: ensure [place] 00 documentat ion of patient education per anticoagul ation policy. (Same as: Lovenox) Enoxaparin No Notes: Memor ia 3-24 Nurse to l 14:00: ensure [place] 00 documentat ion of patient education per anticoagul ation policy. (Same as: Lovenox) Albuterol No Notes: Memori a 0.833 MG/ML 3-24 (Same as: :00: Duoneb) Ty Ipratropium 00 [place] 0.167 MG/ML Inhalant Solution [DuoNeb] Albuterol No Notes: Memori a 0.833 MG/ML 3-24 (Same as: :00: Duoneb) Ty Ipratropium 00 [place] 0.167 MG/ML Inhalant Solution [DuoNeb] Albuterol No Notes: Memori a 0.833 MG/ML 3-24 (Same as: :00: Duoneb) Ty Ipratropium 00 [place] 0.167 MG/ML Inhalant Solution [DuoNeb] Albuterol No Notes: Memori a 0.833 MG/ML 3-24 (Same as: :00: Duoneb) Ty Ipratropium 00 [place] 0.167 MG/ML Inhalant Solution [DuoNeb] Albuterol No Notes: Memori a 0.833 MG/ML 3-24 (Same as: :00: Duoneb) Ty Ipratropium 00 [place] 0.167 MG/ML Inhalant Solution [DuoNeb] Albuterol No Notes: Memori a 0.833 MG/ML 3-24 (Same as: :: Duoneb) [place] Ipratropium 00 [place] 0.167 MG/ML Inhalant Solution [DuoNeb] Albuterol No Notes: Memori a 0.833 MG/ML 3-24 (Same as: :00: Duoneb) Ty Ipratropium 00 [place] 0.167 MG/ML Inhalant Solution [DuoNeb] Budesonide No [...] Danilo jerry 3-23 (Same l 23:12: as:Solu-ME [place] 00 DROL, A-Methapre d) Solu-Medrol No Notes: Danilo jerry 3-23 (Same l 23:12: as:Solu-ME [place] 00 DROL, A-Methapre d) Solu-Medrol No Notes: Danilo jerry 3-23 (Same l 23:12: as:Solu-ME [place] 00 DROL, A-Methapre d) Solu-Medrol No Notes: Danilo jerry 3-23 (Same l 23:12: as:Solu-ME [place] 00 DROL, A-Methapre d) Solu-Medrol No Notes: Danilo jerry 3-23 (Same l 23:12: as:Solu-ME [place] 00 DROL, A-Methapre d) Solu-Medrol 2017-0 No Notes: Danilo jerry 3-23 (Same l 23:12: as:Solu-ME [place] 00 DROL, A-Methapre d) Solu-Medrol No Notes: Danilo jerry 3-23 (Same l 23:12: as:Solu-ME [place] 00 DROL, A-Methapre d) Lovenox No Notes: Memoria 3-23 Nurse to l 23:00: ensure [place] 00 documentat ion of patient education per [...] Memoria 3-23 Nurse to l 23:00: ensure [place] 00 documentat ion of patient education per anticoagul ation policy. (Same as: Lovenox) Lovenox No Notes: Memoria 3-23 Nurse to l 23:00: ensure [place] 00 documentat ion of patient education per anticoagul ation policy. (Same as: Lovenox) Lovenox No Notes: Memoria 3-23 Nurse to l 23:00: ensure [place] 00 documentat ion of patient education per anticoagul ation policy. (Same as: Lovenox) Sodium No 250 mL, Memoria Chloride 3-23 250 ml/hr, l 0.154 22:00: Infuse [place] MEQ/ML 00 Over: 1 Injectable hr, Route: Solution IV, 250, Drug form: INJ, ONCALL, Priority: Routine, Dosing Weight 102.926 kg, Start date: 06/16/16 17:00:00 CDT, Duration: 1 doses or times Sodium 2016-0 No 250 mL, Memoria Chloride 3-23 250 ml/hr, l 0.154 22:00: Infuse [place] MEQ/ML 00 Over: 1 Injectable hr, Route: [...] 3-23 250 ml/hr, l 0.154 22:00: Infuse [place] MEQ/ML 00 Over: 1 Injectable hr, Route: [...] 3-23 250 ml/hr, l 0.154 22:00: Infuse [place] MEQ/ML 00 Over: 1 Injectable hr, Route: [...] 3-23 Rate: 75 l 0.154 21:15: ml/hr, [place] MEQ/ML 00 Infuse Injectable over: 10 Solution hr, Route: IV, Dosing Weight 102.926 kg, Total Volume: 750, Start date: 06/16/16 16:15:00 CDT, Stop date: 06/17/16 16:14:00 CDT Sodium 2017-0 No 750 mL, Mem[facility] Chloride 3-23 Rate: 75 l 0.154 21:15: ml/hr, [place] MEQ/ML 00 Infuse Injectable over: 10 Solution hr, Route: IV, Dosing Weight 102.926 kg, Total Volume: 750, Start date: 06/16/16 16:15:00 CDT, Stop date: 06/17/16 16:14:00 CDT Sodium 2017-0 No 750 mL, [facility] Chloride 3-23 Rate: 75 l 0.154 21:15: ml/hr, Ty MEQ/ML 00 Infuse Injectable over: 10 Solution hr, Route: IV, Dosing Weight 102.926 kg, Total Volume: 750, Start date: 06/16/16 16:15:00 CDT, Stop date: 06/17/16 16:14:00 CDT Sodium 2017-0 No 750 mL, [facility] Chloride 3-23 Rate: 75 l 0.154 21:15: ml/hr, Ty MEQ/ML 00 Infuse Injectable over: 10 Solution hr, Route: IV, Dosing Weight 102.926 kg, Total Volume: 750, Start date: 06/16/16 16:15:00 CDT, Stop date: 06/17/16 16:14:00 CDT Sodium 2017-0 No 750 mL, [facility] Chloride 3-23 Rate: 75 l 0.154 21:15: ml/hr, [place] MEQ/ML 00 Infuse Injectable over: 10 Solution hr, Route: IV, Dosing Weight 102.926 kg, Total Volume: 750, Start date: 06/16/16 16:15:00 CDT, Stop date: 06/17/16 16:14:00 CDT Sodium 2017-0 No 750 mL, Memoria Chloride 3-23 Rate: 75 l 0.154 21:15: ml/hr, [place] MEQ/ML 00 Infuse Injectable over: 10 Solution [...] not exceed l #3 21:11: 4gm/day of [place] 00 acetaminop hen. (Same as: Tylenol with Codeine # 3) Acetaminoph No Notes: Do M emoria en 3-23 not exceed l 21:11: 4 gm/day. [place] 00 (Same as: Tylenol) Sodium No 500 mL, Memoria Chloride 3-23 Rate: 150 l 0.154 21:11: ml/hr, Ty MEQ/ML 00 Infuse Injectable over: 3.3 Solution hr, Route: IV, Dosing Weight 102.926 kg, Total Volume: 500, Start date: 06/16/16 16:11:00 CDT, Stop date: 06/16/16 20:10:00 CDT acetaminoph 2016-0 No Notes: Do M emoria en-codeine 3-23 not exceed l #3 21:11: 4gm/day of [place] 00 acetaminop hen. (Same as: Tylenol with Codeine # 3) Acetaminoph No Notes: Do M emoria en 3-23 not exceed l 21:11: 4 gm/day. [place] 00 (Same as: Tylenol) Sodium No 500 mL, Memoria Chloride 3-23 Rate: 150 l 0.154 21:11: ml/hr, Ty MEQ/ML 00 Infuse Injectable over: 3.3 Solution hr, Route: IV, Dosing Weight 102.926 kg, Total Volume: 500, Start date: 06/16/16 16:11:00 CDT, Stop date: 06/16/16 20:10:00 CDT acetaminoph No Notes: Do M emoria en-codeine 3-23 not exceed l #3 21:11: 4gm/day of [place] acetaminop hen. (Same as: Tylenol with Codeine # 3) Acetaminoph No Notes: Do M emoria en 3-23 not exceed l 21:11: 4 gm/day. Ty (Same as: Tylenol) Sodium No 500 mL, Memoria Chloride 3-23 Rate: 150 l 0.154 21:11: ml/hr, [place] MEQ/ML 00 Infuse Injectable over: 3.3 Solution hr, Route: IV, Dosing Weight 102.926 kg, Total Volume: 500, Start date: 06/16/16 16:11:00 CDT, Stop date: 06/16/16 20:10:00 CDT acetaminoph No Notes: Do M emoria en-codeine 3-23 not exceed l #3 21:11: 4gm/day of [place] acetaminop hen. (Same as: Tylenol with Codeine [...] not exceed l #3 21:11: 4gm/day of [place] 00 acetaminop hen. (Same as: Tylenol with Codeine # 3) Acetaminoph No Notes: Do M emoria en 3-23 not exceed l 21:11: 4 gm/day. [place] (Same as: Tylenol) Sodium No 500 mL, Memoria Chloride 3-23 Rate: 150 l 0.154 21:11: ml/hr, [place] MEQ/ML 00 Infuse Injectable over: 3.3 Solution hr, Route: IV, Dosing Weight 102.926 kg, Total Volume: 500, Start date: 06/16/16 16:11:00 CDT, Stop date: 06/16/16 20:10:00 CDT acetaminoph No Notes: Do M emoria en-codeine 3-23 not exceed l #3 21:11: 4gm/day of [place] acetaminop hen. (Same as: Tylenol with Codeine [...] not exceed l #3 21:11: 4gm/day of [place] acetaminop hen. (Same as: Tylenol with Codeine [...] CDT, Stop date: 06/16/16 20:10:00 CDT Sodium 2017-0 No 250 mL, [facility] Chloride 3-23 Route: l 0.9% IV 20:49: IVPB, [place] 00 Start date: 06/16/16 15:49:00 CDT, Duration: 30 day, Stop date: 07/16/16 15:48:00 CDT, PRN Line Flush Sodium 2017-0 No 250 mL, [facility] Chloride 3-23 Route: l 0.9% IV 20:49: IVPB, Start date: 06/16/16 15:49:00 CDT, Duration: 30 day, Stop date: 07/16/16 15:48:00 CDT, PRN Line Flush Sodium 2017-0 No 250 mL, [facility] Chloride 3-23 Route: l 0.9% IV 20:49: IVPB, Start date: 06/16/16 15:49:00 CDT, Duration: 30 day, Stop date: 07/16/16 15:48:00 CDT, PRN Line Flush Sodium 2017-0 No 250 mL, [facility] Chloride 3-23 Route: l 0.9% IV 20:49: IVPB, Start date: 06/16/16 15:49:00 CDT, Duration: 30 day, Stop date: 07/16/16 15:48:00 CDT, PRN Line Flush Sodium 2017-0 No 250 mL, [facility] Chloride 3-23 Route: l 0.9% IV 20:49: IVPB, Start date: 06/16/16 15:49:00 CDT, Duration: 30 day, Stop date: 07/16/16 15:48:00 CDT, PRN Line Flush Sodium 2017-0 No 250 mL, [facility] Chloride 3-23 Route: l 0.9% IV 20:49: IVPB, Start date: 06/16/16 15:49:00 CDT, Duration: 30 day, Stop date: 07/16/16 15:48:00 CDT, PRN Line Flush Sodium 2017-0 No 250 mL, [facility] Chloride 3-23 Route: l 0.9% IV 20:49: IVPB, Start date: 06/16/16 15:49:00 CDT, Duration: 30 day, Stop date: 07/16/16 15:48:00 CDT, PRN Line Flush Dextrose 2017-0 No 25 gm, 50 Danilo [...] 3-23 mL, Route: l 20:45: IVP, Drug [place] 00 Form: INJ, Dosing Weight 102.926, kg, [...] 3-23 Route: IM, l 20:45: Drug form: [place] 00 PDR/INJ, PRN, Dosing Weight 102.926, kg, PRN Blood Glucose Results, Start date: 06/16/16 15:45:00 CDT, Duration: 30 day, Stop date: 07/16/16 15:44:00 CDT Dextrose 2017-0 No 25 gm, 50 Danilo jerry 50% Syringe 3-23 mL, Route: l 20:45: IVP, Drug [place] 00 Form: INJ, Dosing Weight 102.926, kg, [...] 3-23 Route: IM, l 20:45: Drug form: [place] 00 PDR/INJ, PRN, Dosing Weight 102.926, kg, PRN Blood Glucose Results, Start date: 06/16/16 15:45:00 CDT, Duration: 30 day, Stop date: 07/16/16 15:44:00 CDT Dextrose 2017-0 No 25 gm, 50 Danilo jerry 50% Syringe 3-23 mL, Route: l 20:45: IVP, Drug [place] 00 Form: INJ, Dosing Weight 102.926, kg, PRN, PRN Blood Glucose Results, Start date: 06/16/16 15:45:00 CDT, Duration: 30 day, Stop date: 07/16/16 15:44:00 CDT Insulin, 2017-0 No Notes: Memoria Aspart, 3-23 Roll in l Human 20:45: palms of [place] 00 hands gently; Do not shake vigorously [...] 3-23 mL, Route: l 20:45: IVP, Drug [place] 00 Form: INJ, Dosing Weight 102.926, kg, PRN, PRN Blood Glucose Results, Start date: 06/16/16 15:45:00 CDT, Duration: 30 day, Stop date: 07/16/16 15:44:00 CDT Insulin, 2016-0 No Notes: Memoria Aspart, 3- Roll in l Human 20:45: palms of [place] 00 hands gently; Do not shake vigorously . (Same as: NovoLOG) "single patient use only" WASTE: F/P - Black; E - Municipal Trash Bin Stable for 28 days at room temperatur e. Expires in days from ____Date Glucagon 2016-0 No 1 mg, Memoria 3- Route: IM, l 20:45: Drug form: [place] 00 PDR/INJ, PRN, Dosing Weight 102.926, kg, [...] Roll in l Human 20:45: palms of [place] 00 hands gently; Do not shake vigorously . (Same as: NovoLOG) "single patient use only" WASTE: F/P - Black; E - Municipal Trash Bin Stable for 28 days at room temperatur e. Expires in days from ____Date Glucagon 2017-0 No 1 mg, Memoria 3-23 Route: IM, l 20:45: Drug form: [place] 00 PDR/INJ, PRN, Dosing Weight 102.926, kg, [...] Roll in l Human 20:45: palms of [place] 00 hands gently; Do not shake vigorously [...] 3-23 Rate: 100 l 0.154 14:19: ml/hr, [place] MEQ/ML 00 Infuse Injectable over: 10 Solution hr, Route: IV, Dosing Weight 102.926 kg, Total Volume: 1,000, Start date: 06/16/16 9:19:00 CDT, Duration: 30 day, Stop date: 07/16/16 9:18:00 CDT Sodium 2017-0 No 1,000 mL, Memori a Chloride 3-23 Rate: 100 l 0.154 14:19: ml/hr, [place] MEQ/ML 00 Infuse Injectable over: 10 Solution hr, Route: IV, Dosing Weight 102.926 kg, Total Volume: 1,000, Start date: 06/16/16 9:19:00 CDT, Duration: 30 day, Stop date: 07/16/16 9:18:00 CDT Sodium 2017-0 No 1,000 mL, Memori a Chloride 3-23 Rate: 100 l 0.154 14:19: ml/hr, [place] MEQ/ML 00 Infuse Injectable over: 10 Solution hr, Route: IV, Dosing Weight 102.926 kg, Total Volume: 1,000, Start date: 06/16/16 9:19:00 CDT, Duration: 30 day, Stop date: 07/16/16 9:18:00 CDT Sodium 2017-0 No 1,000 mL, Memori a Chloride 3-23 Rate: 100 l 0.154 14:19: ml/hr, [place] MEQ/ML 00 Infuse Injectable over: 10 Solution [...] 3-23 Rate: 100 l 0.154 14:19: ml/hr, [place] MEQ/ML 00 Infuse Injectable over: 10 Solution hr, Route: IV, Dosing Weight 102.926 kg, Total Volume: 1,000, Start date: 06/16/16 9:19:00 CDT, Duration: 30 day, Stop date: 07/16/16 9:18:00 CDT Sodium 2017 No 1,000 mL, Memori a Chloride 06-16 Rate: 100 l 0.154 14:19: ml/hr, [place] MEQ/ML 00 Infuse Injectable over: 10 Solution hr, Route: IV, Dosing Weight 102.926 kg, Total Volume: 1,000, Start date: 06/16/16 9:19:00 CDT, Duration: 30 day, Stop date: 07/16/16 9:18:00 CDT aspirin 81 No Notes: Do Me moria mg tablet, 3- not crush l enteric 14:00: or chew. Rafat n coated 00 (Same As: Ecotrin) aspirin 81 No Notes: Do Me moria mg tablet, 3- not crush l enteric 14:00: or chew. Rafat n coated 00 (Same As: Ecotrin) aspirin 81 No Notes: Do Me moria mg tablet, 3- not crush l enteric 14:00: or chew. Rafat n coated 00 (Same As: Ecotrin) aspirin 81 No Notes: Do Me moria mg tablet, 3- not crush l enteric 14:00: or chew. [...] tartrate 3-23 (Same as: l 05:00: Lopressor) [place] metoprolol No Notes: Memor ia tartrate 3-23 (Same as: l 05:00: Lopressor) metoprolol 2016-0 No Notes: Memor ia tartrate 3-23 (Same as: l 05:00: Lopressor) metoprolol 0 No Notes: Memor ia tartrate 3-23 (Same as: l 05:00: Lopressor) metoprolol No Notes: Memor ia tartrate 3-23 (Same as: l 05:00: Lopressor) metoprolol 0 No Notes: Memor ia tartrate 3-23 (Same as: l 05:00: Lopressor) metoprolol 2016- No Notes: Memor ia tartrate 3-23 (Same as: l 05:00: Lopressor) Sodium 2017-0 No 250 mL, Memoria Chloride 3-23 250 ml/hr, l 0.154 03:00: Infuse [place] MEQ/ML 00 Over: 1 Injectable hr, Route: Solution IV, 250, Drug form: INJ, ONCALL, Priority: Routine, Dosing Weight 102.926 kg, Start date: 06/15/16 22:00:00 CDT, Duration: 1 doses or times Sodium 2017-0 No 250 mL, Mem[facility] Chloride 3-23 250 ml/hr, l 0.154 03:00: Infuse [place] MEQ/ML 00 Over: 1 Injectable hr, Route: [...] 3-23 250 ml/hr, l 0.154 03:00: Infuse [place] MEQ/ML 00 Over: 1 Injectable hr, Route: Solution IV, 250, Drug form: INJ, ONCALL, Priority: Routine, Dosing Weight 102.926 kg, Start date: 06/15/16 22:00:00 CDT, Duration: 1 doses or times Sodium 2017-0 No 250 mL, Mem[facility] Chloride 3-23 250 ml/hr, l 0.154 03:00: Infuse [place] MEQ/ML 00 Over: 1 Injectable hr, Route: [...] 3-23 250 ml/hr, l 0.154 03:00: Infuse [place] MEQ/ML 00 Over: 1 Injectable hr, Route: [...] 3-23 Rate: 75 l 0.154 02:02: ml/hr, [place] MEQ/ML 00 Infuse Injectable over: 10 Solution [...] 3-23 Rate: 75 l 0.154 02:02: ml/hr, [place] MEQ/ML 00 Infuse Injectable over: 10 Solution hr, Route: IV, Dosing Weight 102.926 kg, Total Volume: 750, Start date: 06/15/16 21:02:00 CDT, Duration: 24 hr, Stop date: 06/16/16 21:01:00 CDT Sodium 2017-0 No 750 mL, [facility] Chloride 3-23 Rate: 75 l 0.154 02:02: ml/hr, [place] MEQ/ML 00 Infuse Injectable over: 10 Solution hr, Route: IV, Dosing Weight 102.926 kg, Total Volume: 750, Start date: 06/15/16 21:02:00 CDT, Duration: 24 hr, Stop date: 06/16/16 21:01:00 CDT Sodium 2017-0 No 750 mL, Mem[facility] Chloride 3-23 Rate: 75 l 0.154 02:02: ml/hr, [place] MEQ/ML 00 Infuse Injectable over: 10 Solution [...] hr, Stop date: 06/16/16 21:01:00 CDT Saline 2017-0 No Notes: Memoria Flush 0.9% 3-23 (Same [...] 3-23 (Same as: l 02:00: BD [place] Posiflush) atorvastati No Notes: Danilo jerry n 3-23 (Same as: l 02:00: Lipitor) metoprolol 0 No 25 mg, Memor ia tartrate 3-23 Route: PO, l 02:00: Drug form: [place] 00 TAB, Q12H, Dosing Weight 102.926, kg, Start date: 06/15/16 21:00:00 CDT, Duration: 30 day, Stop date: 07/15/16 9:00:00 CDT Saline No Notes: Memoria Flush 0.9% 3-23 (Same as: l 02:00: BD [place] Posiflush) atorvastati No Notes: Danilo jerry n 3-23 (Same as: l 02:00: Lipitor) metoprolol 0 No 25 mg, Memor ia tartrate 3-23 Route: PO, l 02:00: Drug form: [place] 00 TAB, Q12H, Dosing Weight 102.926, kg, Start date: 06/15/16 21:00:00 CDT, Duration: 30 day, Stop date: 07/15/16 9:00:00 CDT Saline No Notes: Memoria Flush 0.9% 3-23 (Same as: l 02:00: BD [place] 00 Posiflush) atorvastati No Notes: Danilo jerry n 3-23 (Same as: l 02:00: Lipitor) metoprolol 0 No 25 mg, Memor ia tartrate 3-23 Route: PO, l 02:00: Drug form: [place] 00 TAB, Q12H, Dosing Weight 102.926, kg, Start date: 06/15/16 21:00:00 CDT, Duration: 30 day, Stop date: 07/15/16 9:00:00 CDT Saline No Notes: Memoria Flush 0.9% 3-23 (Same as: l 02:00: BD [place] Posiflush) atorvastati No Notes: Danilo jerry n 3-23 (Same as: l 02:00: Lipitor) metoprolol No 25 mg, Memor ia tartrate 3-23 Route: PO, l 02:00: Drug form: [place] 00 TAB, Q12H, Dosing Weight 102.926, kg, Start date: 06/15/16 21:00:00 CDT, Duration: 30 day, Stop date: 07/15/16 9:00:00 CDT Saline No Notes: Memoria Flush 0.9% 3-23 (Same as: l 02:00: BD [place] 00 Posiflush) atorvastati No Notes: Danilo jerry n 3-23 (Same as: l 02:00: Lipitor) metoprolol No 25 mg, Memor ia tartrate 3-23 Route: PO, l 02:00: Drug form: Ty 00 TAB, Q12H, Dosing Weight 102.926, kg, Start date: 06/15/16 21:00:00 CDT, Duration: 30 day, Stop date: 07/15/16 9:00:00 CDT Saline No Notes: Memoria Flush 0.9% 3-23 (Same as: l 02:00: BD [place] 00 Posiflush) atorvastati No Notes: Danilo jerry n 3-23 (Same as: l 02:00: Lipitor) metoprolol 0 No 25 mg, Memor ia tartrate 3-23 Route: PO, l 02:00: Drug form: Ty 00 TAB, Q12H, Dosing Weight 102.926, kg, Start date: 06/15/16 21:00:00 CDT, Duration: 30 day, Stop date: 07/15/16 9:00:00 CDT Enoxaparin No Notes: Memor ia 3-23 Nurse to l 00:00: ensure [place] 00 documentat ion of patient education per anticoagul ation policy. (Same as: Lovenox) Enoxaparin No Notes: Memor ia 3-23 Nurse to l 00:00: ensure [place] 00 documentat ion of patient education per anticoagul ation policy. (Same as: Lovenox) Enoxaparin No Notes: Memor ia 3-23 Nurse to l 00:00: ensure [place] 00 documentat ion of patient education per anticoagul ation policy. (Same as: Lovenox) Enoxaparin No Notes: Memor ia 3-23 Nurse to l 00:00: ensure [place] 00 documentat ion of patient education per anticoagul ation policy. (Same as: Lovenox) Enoxaparin No Notes: Memor ia 3-23 Nurse to l 00:00: ensure [place] 00 documentat ion of patient education per anticoagul ation policy. (Same as: Lovenox) Enoxaparin No Notes: Memor ia 3-23 Nurse to l 00:00: ensure [place] 00 documentat ion of patient education per anticoagul ation policy. (Same as: Lovenox) Enoxaparin No Notes: Memor ia 3-23 Nurse to l 00:00: ensure [place] 00 documentat ion of patient education per anticoagul ation policy. (Same as: Lovenox) Albuterol No Notes: Memori a 0.833 MG/ML 3-22 (Same as: l / 18:56: Duoneb) Ty Ipratropium 00 [place] 0.167 MG/ML Inhalant Solution [DuoNeb] Albuterol No Notes: Memori a 0.833 MG/ML 3-22 (Same as: l / 18:56: Duoneb) [place] Ipratropium 00 [place] 0.167 MG/ML Inhalant Solution [DuoNeb] Albuterol No Notes: Memori a 0.833 MG/ML 3-22 (Same as: l / 18:56: Duoneb) [place] Ipratropium 00 [place] 0.167 MG/ML Inhalant Solution [DuoNeb] Albuterol No Notes: Memori a 0.833 MG/ML 3-22 (Same as: l / 18:56: Duoneb) [place] Ipratropium 00 [place] 0.167 MG/ML Inhalant Solution [DuoNeb] Albuterol No Notes: Memori a 0.833 MG/ML 3-22 (Same as: l / 18:56: Duoneb) Ty Ipratropium 00 [place] 0.167 MG/ML Inhalant Solution [DuoNeb] Albuterol No Notes: Memori a 0.833 MG/ML -22 (Same as: l / 18:56: Duoneb) [place] Ipratropium 00 [place] 0.167 MG/ML Inhalant Solution [DuoNeb] Albuterol No Notes: Memori a 0.833 MG/ML -22 (Same as: l / 18:56: Duoneb) [place] Ipratropium 00 [place] 0.167 MG/ML Inhalant Solution [DuoNeb] Saline No Notes: Memoria Flush 0.9% 06-15 (Same as: l 18:52: BD [place] Posiflush) Labetalol No Notes: Memori a -22 (Same as: l 18:52: Normodyne, Ty 00 Trandate) Push over 2 minutes Give bolus over 2-3 minutes. Trazodone No Notes: Memori a Hydrochlori - (Same As: l de 50 MG 18:52: Desyrel) Soumya nn Oral Tablet 00 Miralax No Notes: Memoria 3-22 Dissolve l 18:52: in 8 oz of [place] water or juice. (Same as: Miralax) Nitroglycer No Notes: Danilo jerry in - (Same l 18:52: as:Nitroqu [place] ick, Nitrostat) "Do Not Crush" Sublingual tablet Morphine No Notes: Memoria 3-22 (Same l 18:52: as:MORPhin Ty 00 e Sulfate) Ondansetron No Notes: Danilo jerry 3-22 (Same as: l 18:52: Zofran) Ty 00 Saline No Notes: Memoria Flush [...] jerry in 3-22 (Same l 18:52: as:Nitroqu [place] 00 ick, Nitrostat) "Do Not Crush" Sublingual tablet Morphine No Notes: Memoria 3-22 (Same l 18:52: as:MORPhin [place] 00 e Sulfate) Ondansetron No Notes: Danilo jerry 3-22 (Same as: l 18:52: Zofran) [place] 00 Saline No Notes: Memoria Flush 0.9% 3-22 (Same as: l 18:52: BD [place] 00 Posiflush) Labetalol No Notes: Memori a 3-22 (Same as: l 18:52: Normodyne, [place] 00 Trandate) Push over 2 minutes Give bolus over 2-3 minutes. Trazodone No Notes: Memori a Hydrochlori 3-22 (Same As: l de 50 MG 18:52: Desyrel) Soumya nn Oral Tablet 00 Miralax No Notes: Memoria 3-22 Dissolve l 18:52: in 8 oz of [place] 00 water or juice. (Same as: Miralax) Nitroglycer No Notes: Danilo jerry in 3-22 (Same l 18:52: as:Nitroqu [place] 00 ick, Nitrostat) "Do Not Crush" Sublingual tablet Morphine No Notes: Memoria 3-22 (Same l 18:52: as:MORPhin [place] 00 e Sulfate) Ondansetron No Notes: Danilo jerry 3-22 (Same as: l 18:52: Zofran) Ty 00 Saline No Notes: Memoria Flush [...] Dissolve l 18:52: in 8 oz of [place] 00 water or juice. (Same as: Miralax) Nitroglycer No Notes: Danilo jerry in 3-22 (Same l 18:52: as:Nitroqu [place] 00 ick, Nitrostat) "Do Not Crush" Sublingual tablet Morphine No Notes: Memoria 3-22 (Same l 18:52: as:MORPhin [place] 00 e Sulfate) Ondansetron No Notes: Danilo jerry 3-22 (Same as: l 18:52: Zofran) [place] 00 Saline No Notes: Memoria Flush 0.9% 3-22 (Same as: l 18:52: BD [place] 00 Posiflush) Labetalol No Notes: Memori a 3-22 (Same as: l 18:52: Normodyne, [place] 00 Trandate) Push over 2 minutes Give bolus over 2-3 minutes. Trazodone No Notes: Memori a Hydrochlori 3-22 (Same As: l de 50 MG 18:52: Desyrel) Soumya nn Oral Tablet 00 Miralax No Notes: Memoria 3-22 Dissolve l 18:52: in 8 oz of [place] 00 water or juice. (Same as: Miralax) Nitroglycer No Notes: Danilo jerry in 3-22 (Same l 18:52: as:Nitroqu [place] 00 ick, Nitrostat) "Do Not Crush" Sublingual tablet Morphine No Notes: Memoria 3-22 (Same l 18:52: as:MORPhin [place] 00 e Sulfate) Ondansetron No Notes: Danilo jerry 3-22 (Same as: l 18:52: Zofran) Ty 00 Saline No Notes: Memoria Flush 0.9% 3-22 (Same as: l 18:52: BD [place] 00 Posiflush) Labetalol No Notes: Memori a [...] Notes: Memoria 3-22 (Same l 18:52: as:MORPhin [place] 00 e Sulfate) Ondansetron No Notes: Danilo jerry 3-22 (Same as: l 18:52: Zofran) Ty 00 Saline No Notes: Memoria Flush 0.9% 3-22 (Same as: l 18:52: BD [place] 00 Posiflush) Labetalol No Notes: Memori a 3-22 (Same as: l 18:52: Normodyne, [place] 00 Trandate) Push over 2 minutes Give [...] Notes: Memoria 06-15 (Same l 18:52: as:MORPhin e Sulfate) Ondansetron No Notes: Danilo jerry 06-15 (Same as: l 18:52: Zofran) [place] 00 Aspirin 81 Aspirin 81 No 1{table [...] MCG/INH MCG/INH 5 MCG/INH Immunizations Ordered Filled Date Status Comments Source Immunization Name Immunization Name Influenza High Dose 2018-11-25 Completed [facility] 00:00:00 [facility] Influenza High Dose 2018-11-25 Completed [facility]ive rsity of 00:00:00 [facility] Influenza High Dose 2018-11-25 Completed Unive rsity of 00:00:00 [facility] Influenza High Dose 2018-11-25 Completed Unive rsity of 00:00:00 [facility] Influenza High Dose 2018-11-25 Completed Unive rsity of 00:00:00 [facility] Influenza High Dose 2018-11-25 Completed Unive rsity of 00:00:00 [facility] Influenza High Dose 2018-11-25 Completed Unive rsity of 00:00:00 [facility] Influenza High Dose 2018-11-25 Completed Unive rsity of 00:00:00 [facility] Influenza High Dose 2018-11-25 Completed Unive rsity of 00:00:00 [facility] Influenza High Dose 2018-11-25 Completed Unive rsity of 00:00:00 [facility] Influenza High Dose 2018-11-25 Completed Unive rsity of 00:00:00 [facility] Influenza High Dose 2018-11-25 Completed Unive rsity of 00:00:00 [facility] pneumococcal 2016-06-30 Completed [facility] cazares 13-valent vaccine 17:42:00 pneumococcal 2016-06-30 Completed [facility] Her cazares 13-valent vaccine 17:42:00 pneumococcal 2016-06-30 Completed [facility] Her cazares 13-valent vaccine 17:42:00 pneumococcal Unknown Completed [facility] Her cazares 13-valent vaccine pneumococcal Unknown Completed [facility] Her cazares 13-valent vaccine pneumococcal Unknown Completed [facility] Her cazares 13-valent vaccine pneumococcal Unknown Completed Memorial Her cazares 13-valent vaccine Influenza High Dose Unknown Completed Unive rsity of [facility] Influenza High Dose Unknown Completed Unive rsity of [facility] Influenza High Dose Unknown Completed Unive rsity of [facility] Influenza High Dose Unknown Completed Unive rsity of [facility] Influenza High Dose Unknown Completed [facility] Vital Signs Vital Name Observation Time Observation Value Comments Source Systolic blood 2023-01-20 16:04:00 126 mm[Hg] Univer sity of pressure [facility] Diastolic blood 2023-01-20 16:04:00 66 mm[Hg] [facility] Heart rate 2023-01-20 16:04:00 72 /min Universi [facility] Body temperature 2023-01-20 16:04:00 36.5 Arlen [facility] weight 2023-01-20 16:04:00 92.443 kg Universi ty [facility] BMI 2023-01-20 16:04:00 29.24 kg/m2 [facility] Oxygen saturation in 2023-01-20 16:04:00 93 /min [facility] Arterial blood by [facility] Pulse oximetry Branch Respiratory rate 2023-01-20 15:56:00 22 /min [facility] Body height 2023-01-20 15:56:00 177.8 cm [facility] height 2021-12-08 14:30:00 60 [in_i] [facility] weight 2021-12-08 14:30:00 204.2 [lb_av] Common [facility] temperature 2021-12-08 14:30:00 98.6 [degF] [facility] bmi 2021-12-08 14:30:00 39.88 kg/m2 [facility] oximetry 2021-12-08 14:30:00 98 % [facility] respiratory rate 2021-12-08 14:30:00 16 /min Comm on [facility] blood pressure 2021-12-08 14:30:00 96 mm[Hg] Common [facility] - systolic [facility] blood pressure 2021-12-08 14:30:00 53 mm[Hg] Common [facility] - diastolic [facility] HEIGHT 2020-09-11 09:44:00 177.8 cm WEIGHT 2020-09-11 09:44:00 95.255 kg HEIGHT 2020-09-11 09:44:00 177.8 cm WEIGHT 2020-09-11 09:44:00 95.255 kg HEIGHT 2020-09-07 14:08:00 177.8 cm WEIGHT 2020-09-07 14:08:00 80.74 kg HEIGHT 2020-09-07 14:08:00 177.8 cm WEIGHT 2020-09-07 14:08:00 80.74 kg Systolic blood 2019-04-25 17:33:00 106 mm[Hg] Univer sity of pressure [facility] Diastolic blood 2019-04-25 17:33:00 76 mm[Hg] Unive rsity of pressure [facility] Heart rate 2019-04-25 17:33:00 77 /min [facility] Respiratory rate 2019-04-25 17:33:00 19 /min Univ ersity [facility] Body height 2019-04-25 17:33:00 167.6 cm [facility] Body weight 2019-04-25 17:33:00 95.709 kg [facility] BMI 2019-04-25 17:33:00 34.06 kg/m2 [facility] Oxygen saturation in 2019-04-25 17:33:00 99 /min University of Arterial blood by [place] [employer] michael Pulse oximetry Branch Systolic blood 2018-12-06 14:38:00 134 mm[Hg] Univer sity of pressure [facility] Diastolic blood 2018-12-06 14:38:00 74 mm[Hg] Unive rsity of pressure [facility] Heart rate 2018-12-06 14:38:00 75 /min [facility] Respiratory rate 2018-12-06 14:38:00 19 /min Univ ersity [facility] Body height 2018-12-06 14:38:00 167.6 cm [facility] Body weight 2018-12-06 14:38:00 105.235 kg [facility] BMI 2018-12-06 14:38:00 37.45 kg/m2 [facility] Oxygen saturation in 2018-12-06 14:38:00 97 /min University of Arterial blood by [facility]ok[facility] michael Pulse oximetry Branch Heart rate 2020-11-14 18:27:00 65 /min Universi ty [facility] Respiratory rate 2020-11-14 18:27:00 18 /min Univ [facility] [place] [facility] Systolic blood 2020-11-14 17:17:17 118 mm[Hg] Univer sity of pressure Y[facility] Diastolic blood 2020-11-14 17:17:17 76 mm[Hg] Unive rsity of pressure Yaim[facility] Body temperature 2020-11-14 17:17:17 36.61 Arlen [facility] Oxygen saturation in 2020-11-14 17:17:17 96 /min University of Arterial blood by Yaima fine Pulse oximetry [facility] Body weight 2020-11-13 09:45:[address] BMI 2020-11-13 09:45:00 33.15 kg/m2 [facility] MD [facility] Body height 2020-10-29 16:22:00 170 cm [facility] ty [facility] MD [facility] Respitory Rate 2016-06-30 20:27:00 Memori al [place] Systolic (mm Hg) 2016-06-30 20:27:00 Danilo rial [place] Diastolic (mm Hg) 2016-06-30 20:27:00 Mem orial Ty Heart Rate 2016-06-30 20:27:00 Memorial [place] Respitory Rate 2016-06-30 17:09:00 Memori al [place] Systolic (mm Hg) 2016-06-30 17:09:00 Danilo rial Ty Diastolic (mm Hg) 2016-06-30 17:09:00 Mem orial [place] Heart Rate 2016-06-30 17:09:00 Memorial Ty Systolic (mm Hg) 2016-06-30 13:00:00 Danilo rial [place] Diastolic (mm Hg) 2016-06-30 13:00:00 Mem orial [place] Heart Rate 2016-06-30 13:00:00 Memorial [place] Respitory Rate 2016-06-30 13:00:00 Memori al Ty Weight 2016-06-29 10:00:00 Memorial Ty Weight 2016-06-28 10:23:00 Memorial [place] Height 2016-06-25 05:04:00 177.8 cm Memorial [place] Height 2016-06-25 03:47:00 177.8 cm Memorial Ty Height 2016-06-24 22:55:00 177.8 cm Memorial Ty Temperature Oral (F) 2016-06-24 14:55:00 97.6 F Salud Ty Weight 2016-06-24 10:00:00 [facility] [place] Temperature Oral (F) 2016-06-20 13:00:00 97.9 F [facility] [place] BMI Calculated 2016-06-15 16:47:00 Mo Snyder Procedures Procedure Date / Time Performing Clinician Source Performed CONSENT/REFUSAL FOR 2023-01-20 15:50:32 [facility] Name Medical Branch REFERRAL- REQUEST/RESPONSE 2022-10-17 05:01:00 Doctor Unassigned , No [facility] Name [facility] Branch HEPATIC FUNCTION PANEL 2020-11-14 07:17:00 Yuriy Parker [facility] COMPREHENSIVE METABOLIC 2020-11-14 07:17:00 Yuriy Parker [facility] PANEL [facility] MAGNESIUM LEVEL 2020-11-14 07:17:00 Yuriy Parker [facility] PHOSPHORUS LEVEL 2020-11-14 07:17:[address] [facility] LACTATE DEHYDROGENASE 2020-11-14 07:17:00 [facility] COMPLETE BLOOD COUNT W/ 2020-11-14 07:17:00 [facility] URIC ACID 2020-11-14 07:17:00 Mari Lovell [facility] ALBUMIN LEVEL 2020-11-14 07:17:00 Yuriy Parker [facility] ALKALINE PHOSPHATASE 2020-11-14 07:17:00 Yuriy Parker [facility] ALANINE AMINOTRANSFERASE 2020-11-14 07:17:00 Yuriy Parker [facility] ASPARTATE AMINOTRANSFERASE 2020-11-14 07:17:00 Juan Parker [facility] TOTAL PROTEIN 2020-11-14 07:17:00 Yuriy Parker [facility] FRACTIONATED BILIRUBIN 2020-11-14 07:17:00 Yuriy Parker [facility] GLUCOSE LEVEL 2020-11-14 07:17:00 Yuriy Parker [facility] BLOOD UREA NITROGEN 2020-11-14 07:17:00 Yuriy Parker [facility] ELECTROLYTE PANEL 2020-11-14 07:17:00 Yuriy Parker [facility] SERUM CREATININE 2020-11-14 07:17:[address] [facility] .GLOMERULAR FILTRATION 2020-11-14 07:17:00 Yuriy Parker [facility] RATE [facility] CALCIUM LEVEL TOTAL 2020-11-14 07:17:00 Yuriy Parker [facility] Results CBC 2020-11-14 07:17:00 Yanet Gurrola [facility] MANUAL DIFFERENTIAL 2020-11-14 07:17:00 Yanet Gurrola [facility] OSCILLATORY PEP 2020-11-13 19:00:28 [facility] OSCILLATORY PEP 2020-11-13 13:00:08 [facility] HEPATIC FUNCTION PANEL 2020-11-13 08:47:00 Yuriy Parker [facility] COMPREHENSIVE METABOLIC 2020-11-13 08:47:[address] [facility] MAGNESIUM LEVEL 2020-11-13 08:47:00 Yuriy Parker [facility] PHOSPHORUS LEVEL 2020-11-13 08:47:00 [facility] LACTATE DEHYDROGENASE 2020-11-13 08:47:00 Yanet Gurrola [facility] COMPLETE BLOOD COUNT W/ 2020-11-13 08:47:00 Yanet Gurrola [facility] DIFFERENTIAL [facility] TYPE AND SCREEN 2020-11-13 08:47:00 SamaraVania donahue [facility] APTT 2020-11-13 08:47:00 Mari Lovell [facility] URIC ACID 2020-11-13 08:47:00 Mari Lovell [facility] PROTHROMBIN TIME 2020-11-13 08:47:00 Mari Lovell [facility] ABORH 2020-11-13 08:47:00 Dionna, [facility] ANTIBODY SCREEN 2020-11-13 08:47:00 [facility] ALBUMIN LEVEL 2020-11-13 08:47:00 Yuriy Parker [facility] ALKALINE PHOSPHATASE 2020-11-13 08:47:00 Yuriy Parker [facility] ALANINE AMINOTRANSFERASE 2020-11-13 08:47:00 Yuriy Parker [facility] ASPARTATE AMINOTRANSFERASE 2020-11-13 08:47:00 Juan Parker [facility] TOTAL PROTEIN 2020-11-13 08:47:00 Yuriy Parker [facility] FRACTIONATED BILIRUBIN 2020-11-13 08:47:00 Yuriy Parker [facility] GLUCOSE LEVEL 2020-11-13 08:47:00 Yuriy Parker [facility] BLOOD UREA NITROGEN 2020-11-13 08:47:00 Yuriy Parker [facility] ELECTROLYTE PANEL 2020-11-13 08:47:00 [facility]uriy Parker [facility] SERUM CREATININE 2020-11-13 08:47:[address] [facility] .GLOMERULAR FILTRATION 2020-11-13 08:47:00 Yuriy Parker [facility] CALCIUM LEVEL TOTAL 2020-11-13 08:47:00 Yuriy Parker [facility] Results CBC 2020-11-13 08:47:00 Yanet Gurrola [facility] MANUAL DIFFERENTIAL 2020-11-13 08:47:00 Yanet Gurrola [facility] CLOT EXPIRATION DATE 2020-11-13 08:47:00 Randolph Payne [facility] TMP INTERPRETATION 2020-11-13 08:47:00 Randolph Payne [facility] ANTIBODY SCREEN NEGATIVE MD [facility] OSCILLATORY PEP 2020-11-13 07:00:14 Hayden [facility] OSCILLATORY PEP 2020-11-13 01:00:09 Hayden [facility] OSCILLATORY PEP 2020-11-12 19:00:07 Hayden [facility] OSCILLATORY PEP 2020-11-12 13:00:08 Hayden [facility] US RENAL 2020-11-12 12:36:12 Emi [facility] Segun [facility] HEPATIC FUNCTION PANEL 2020-11-12 09:08:00 Yuriy Parker [facility] COMPREHENSIVE METABOLIC 2020-11-12 09:08:[address] [facility] MAGNESIUM LEVEL 2020-11-12 09:08:00 Yuriy Parker [facility] PHOSPHORUS LEVEL 2020-11-12 09:08:[address] [facility] LACTATE DEHYDROGENASE 2020-11-12 09:08:00 Yanet Gurrola [facility] COMPLETE BLOOD COUNT W/ 2020-11-12 09:08:00 Yanet Gurrola [facility] DIFFERENTIAL [facility] URIC ACID 2020-11-12 09:08:00 Mari Lovell [facility] ALBUMIN LEVEL 2020-11-12 09:08:00 Yuriy Parker [facility] ALKALINE PHOSPHATASE 2020-11-12 09:08:00 Yuriy Parker [facility] ALANINE AMINOTRANSFERASE 2020-11-12 09:08:00 Yuriy Parker [facility] ASPARTATE AMINOTRANSFERASE 2020-11-12 09:08:00 Juan Parker [facility] TOTAL PROTEIN 2020-11-12 09:08:00 Yuriy Parker [facility] FRACTIONATED BILIRUBIN 2020-11-12 09:08:00 Yuriy Parker [facility] GLUCOSE LEVEL 2020-11-12 09:08:00 Yuriy Parker [facility] BLOOD UREA NITROGEN 2020-11-12 09:08:00 Yuriy Parker [facility] ELECTROLYTE PANEL 2020-11-12 09:08:00 Yuriy Parker [facility] SERUM CREATININE 2020-11-12 09:08:[address] [facility] .GLOMERULAR FILTRATION 2020-11-12 09:08:00 Yuriy Parker [facility] RATE [facility] CALCIUM LEVEL TOTAL 2020-11-12 09:08:00 Yuriy Parker [facility] Results CBC 2020-11-12 09:08:00 Yanet Gurrola [facility] MANUAL DIFFERENTIAL 2020-11-12 09:08:00 Yanet Gurrola [facility] OSCILLATORY PEP 2020-11-12 07:00:16 Hayden [facility] OSCILLATORY PEP 2020-11-12 01:00:11 Hayden [facility] URINALYSIS MICROSCOPIC 2020-11-11 22:06:00 Adry Middleton [facility] SODIUM URINE 2020-11-11 22:06:00 [facility], RANDOM 2020-11-11 22:06:00 Emi, [facility] UREA NITROGEN URINE 2020-11-11 22:06:00 Emi [facility] ALBUMIN LEVEL URINE 2020-11-11 22:06:00 Emi [facility] PROTEIN / CREATININE RATIO 2020-11-11 22:06:00 [facility] URINALYSIS WITH 2020-11-11 22:06:00 Abiodun Borjas [facility] MICROSCOPIC IF INDICATED Randolph Thompson [facility] TRANSFUSE RED BLOOD CELLS 2020-11-11 19:21:00 Abiodun Borjas [facility] Randolph Gallagher MD [facility] OSCILLATORY PEP 2020-11-11 19:00:42 Hayden [facility] OSCILLATORY PEP 2020-11-11 13:00:09 Hayden [facility] o f [facility] PREPARE RBC 2020-11-11 12:00:00 Abiodun Borjas [facility] PRBC PRODUCT READY FOR 2020-11-11 12:00:00 Abiodun Borjas, Cecilia [facility] LO[facility]ER Anastacio [facility] HEPATIC FUNCTION PANEL 2020-11-11 09:16:00 Yuriy Parker [facility] COMPREHENSIVE METABOLIC 2020-11-11 09:16:00 Yuriy Parker [facility] PANEL [facility] MAGNESIUM LEVEL 2020-11-11 09:16:00 Yuriy Parker [facility] PHOSPHORUS LEVEL 2020-11-11 09:16:[address] [facility] LACTATE DEHYDROGENASE 2020-11-11 09:16:00 Yanet Gurrola [facility] COMPLETE BLOOD COUNT W/ 2020-11-11 09:16:00 Yanet Gurrola [facility] DIFFERENTIAL [facility] URIC ACID 2020-11-11 09:16:00 Mari Lovell [facility] ALBUMIN LEVEL 2020-11-11 09:16:00 Yuriy Parker [facility] ALKALINE PHOSPHATASE 2020-11-11 09:16:00 Yuriy Parker [facility] ALANINE AMINOTRANSFERASE 2020-11-11 09:16:00 Yuriy Parker [facility] ASPARTATE AMINOTRANSFERASE 2020-11-11 09:16:00 Juan Parker [facility] TOTAL PROTEIN 2020-11-11 09:16:00 Yuriy Parker [facility] FRACTIONATED BILIRUBIN 2020-11-11 09:16:00 Yuriy Parker [facility] GLUCOSE LEVEL 2020-11-11 09:16:00 Yuriy Parker [facility] BLOOD UREA NITROGEN 2020-11-11 09:16:00 Yuriy Parker [facility] ELECTROLYTE PANEL 2020-11-11 09:16:00 Yuriy Parker [facility] SERUM CREATININE 2020-11-11 09:16:[address] [facility] .GLOMERULAR FILTRATION 2020-11-11 09:16:00 Yuriy Parker [facility] CALCIUM LEVEL TOTAL 2020-11-11 09:16:00 Yuriy Parker [facility] Results CBC 2020-11-11 09:16:00 Yanet Gurrola [facility] MANUAL DIFFERENTIAL 2020-11-11 09:16:00 Yanet Gurrola [facility] OSCILLATORY PEP 2020-11-11 07:00:18 [facility] 2020-11-11 01:00:08 [facility] X[facility] FOOT 3+ VW LEFT 2020-11-10 21:20:[address] [facility] OSCILLATORY PEP 2020-11-10 19:00:41 [facility] COVID-19 (SARS-COV-2) 2020-11-10 18:41:00 Hayden [facility] PCR-ASYMPTOMATIC [facility] OSCILLATORY PEP 2020-11-10 13:00:11 [facility] HE[facility] PANEL 2020-11-10 12:55:00 Yuriy Parker [facility] [facility] COMPREHENSIVE METABOLIC 2020-11-10 12:55:00 Yuriy Parker [facility] PANEL [facility] MAGNESIUM LEVEL 2020-11-10 12:55:00 Yuriy Parker [facility] PHOSPHORUS LEVEL 2020-11-10 12:55:00 [facility] LACTATE DEHYDROGENASE 2020-11-10 12:55:00 Yanet [facility]rol[facility] COMPLETE BLOOD COUNT W/ 2020-11-10 12:55:00 Yanet Gurrola Uni versity [facility] DIFFERENTIAL [facility] TYPE AND SCREEN 2020-11-10 12:55:00 Vania Pascual [facility] APTT 2020-11-10 12:55:00 Mari Lovell [facility] URIC ACID 2020-11-10 12:55:00 Mari Lovell [facility] PROTHROMBIN TIME 2020-11-10 12:55:00 Mari Lovell [facility] ABORH 2020-11-10 12:55:00 [facility] ANTIBODY SCREEN 2020-11-10 12:55:00 [facility] ALBUMIN LEVEL 2020-11-10 12:55:00 Yuriy Parker [facility] ALKALINE PHOSPHATASE 2020-11-10 12:55:00 [facility]uri[facility] ALANINE AMINOTRANSFERASE 2020-11-10 12:55:00 Yuriy Parker [facility] ASPARTATE AMINOTRANSFERASE 2020-11-10 12:55:00 Juan Parker [facility] TOTAL PROTEIN 2020-11-10 12:55:00 Yuriy Parker [facility] FRACTIONATED BILIRUBIN 2020-11-10 12:55:00 Yuriy Parker [facility] GLUCOSE LEVEL 2020-11-10 12:55:00 Yuriy Parker [facility] BLOOD UREA NITROGEN 2020-11-10 12:55:00 Yuriy Parker [facility] ELECTROLYTE PANEL 2020-11-10 12:55:00 Yuriy Parker [facility] SERUM CREATININE 2020-11-10 12:55:[address] [facility] .GLOMERULAR FILTRATION 2020-11-10 12:55:00 Yuriy Parker [facility] RATE [facility] CALCIUM LEVEL TOTAL 2020-11-10 12:55:00 Yuriy Parker [facility] Results CBC 2020-11-10 12:55:00 Yanet Gurrola [facility] MANUAL DIFFERENTIAL 2020-11-10 12:55:00 Yanet Gurrola [facility] TMP INTERPRETATION 2020-11-10 12:55:00 Randolph Payne [facility] ANTIBODY SCREEN NEGATIVE MD Thompson [facility] CLOT EXPIRATION DATE 2020-11-10 12:55:00 Randolph Payne [facility] TMP CROSSMATCH 2020-11-10 12:55:00 Randolph Payne [place] [facility] INTERPRETATION [facility] OSCILLATORY PEP 2020-11-10 07:00:06 Hayden [facility] OSCILLATORY PEP 2020-11-10 01:00:11 Hayden [facility] OSCILLATORY PEP 2020-11-09 19:00:05 Hayden [facility] PERIPHERAL SMR FOR DOC 2020-11-09 16:10:00 Kristina Blake [facility] REVIEW [facility] BLOODCULTURE 2020-11-09 16:02:00 Hayden [facility] o f [facility] OSCILLATORY PEP 2020-11-09 13:00:08 [facility] HEPATIC FUNCTION PANEL 2020-11-09 07:45:00 Yuriy Parker [facility] COMPREHENSIVE METABOLIC 2020-11-09 07:45:00 Yuriy Parker [facility] PANEL [facility] MAGNESIUM LEVEL 2020-11-09 07:45:00 Yuriy Parker [facility] PHOSPHORUS LEVEL 2020-11-09 07:45:[address] [facility] LACTATE DEHYDROGENASE 2020-11-09 07:45:00 Yanet Gurrola [facility] COMPLETE BLOOD COUNT W/ 2020-11-09 07:45:00 Yanet Gurrola [facility] DIFFERENTIAL [facility] URIC ACID 2020-11-09 07:45:00 Mari Lovell [facility] ALBUMIN LEVEL 2020-11-09 07:45:00 Yuriy Parker [facility] ALKALINE PHOSPHATASE 2020-11-09 07:45:00 Yuriy Parker [facility] ALANINE AMINOTRANSFERASE 2020-11-09 07:45:00 Yuriy Parker [facility] ASPARTATE AMINOTRANSFERASE 2020-11-09 07:45:00 Juan Parker [facility] TOTAL PROTEIN 2020-11-09 07:45:00 Yuriy Parker [facility] FRACTIONATED BILIRUBIN 2020-11-09 07:45:00 Yuriy Parker [facility] GLUCOSE LEVEL 2020-11-09 07:45:00 Yuriy Parker [facility] BLOOD UREA NITROGEN 2020-11-09 07:45:00 Yuriy Parker [facility] ELECTROLYTE PANEL 2020-11-09 07:45:00 Yuriy Parker [facility] SERUM CREATININE 2020-11-09 07:45:[address] [facility] .GLOMERULAR FILTRATION 2020-11-09 07:45:00 Yuriy Parker [facility] RATE [facility] CALCIUM LEVEL TOTAL 2020-11-09 07:45:00 Yuriy Parker [facility] Results CBC 2020-11-09 07:45:00 Yanet Gurrola [facility] MANUAL DIFFERENTIAL 2020-11-09 07:45:00 Yanet Gurrola [facility] OSCILLATORY PEP 2020-11-09 07:00:10 Hayden [facility] OSCILLATORY PEP 2020-11-09 01:00:10 Hayden [facility] OSCILLATORY PEP 2020-11-08 19:00:45 [facility] 2020-11-08 13:00:07 Hayden [facility] XR CHEST 2 VW 2020-11-08 12:42:57 [facility] VRE CULTURE 2020-11-08 10:56:00 Yuriy Parker [facility] HEPATIC FUNCTION PANEL 2020-11-08 08:58:00 Yuriy Parker [facility] COMPREHENSIVE METABOLIC 2020-11-08 08:58:[address] [facility] MAGNESIUM LEVEL 2020-11-08 08:58:00 Yuriy Parker [facility] PHOSPHORUS LEVEL 2020-11-08 08:58:[address] [facility] LACTATE DEHYDROGENASE 2020-11-08 08:58:00 Yanet [facility]rola [facility] COMPLETE BLOOD COUNT W/ 2020-11-08 08:58:00 [facility] URIC ACID 2020-11-08 08:58:00 Mari Lovell [facility] ALBUMIN LEVEL 2020-11-08 08:58:00 Yuriy Parker [facility] ALKALINE PHOSPHATASE 2020-11-08 08:58:00 Yuriy Parker [facility] ALANINE AMINOTRANSFERASE 2020-11-08 08:58:00 Yuriy Parker [facility] ASPARTATE AMINOTRANSFERASE 2020-11-08 08:58:00 Juan Parker [facility] TOTAL PROTEIN 2020-11-08 08:58:00 Yuriy Parker [facility] FRACTIONATED BILIRUBIN 2020-11-08 08:58:00 Yuriy Parker [facility] GLUCOSE LEVEL 2020-11-08 08:58:00 Yuriy Parker [facility] BLOOD UREA NITROGEN 2020-11-08 08:58:00 Yuriy Parker [facility] ELECTROLYTE PANEL 2020-11-08 08:58:00 Yuriy Parker [facility] SERUM CREATININE 2020-11-08 08:58:[address] [facility] .GLOMERULAR FILTRATION 2020-11-08 08:58:00 Yuriy Parker [facility] CALCIUM LEVEL TOTAL 2020-11-08 08:58:00 Yuriy Parker [facility] Results CBC 2020-11-08 08:58:00 Yanet Gurrola [facility] MANUAL DIFFERENTIAL 2020-11-08 08:58:[address] [facility] PEP 2020-11-08 07:00:15 Hayden [facility] OSCILLATORY PEP 2020-11-08 01:00:07 Hayden [facility] LOWER RESPIRATORY CULTURE 2020-11-08 00:20:00 [facility]/ GRAM STAIN [facility] OSCILLATORY PEP 2020-11-07 19:00:27 Hayden [facility] OSCILLATORY PEP 2020-11-07 13:00:08 Hayden [facility] HEPATIC FUNCTION PANEL 2020-11-07 08:41:00 Yuriy Parker [facility] COMPREHENSIVE METABOLIC 2020-11-07 08:41:00 Yuriy Parker [facility] PANEL [facility] MAGNESIUM LEVEL 2020-11-07 08:41:00 Yuriy Parker [facility] PHOSPHORUS LEVEL 2020-11-07 08:41:[address] [facility] LACTATE DEHYDROGENASE 2020-11-07 08:41:00 Yanet Gurrola [facility] COMPLETE BLOOD COUNT W/ 2020-11-07 08:41:00 Yanet Gurrola Uni versity [facility] DIFFERENTIAL [facility] TYPE AND SCREEN 2020-11-07 08:41:00 Vania Pascual [facility] URIC ACID 2020-11-07 08:41:00 Mari Lovell [facility] ABORH 2020-11-07 08:41:00 Randolph Payne [facility] ANTIBODY SCREEN 2020-11-07 08:41:00 Randolph Payne [place] [facility] f [facility] ALBUMIN LEVEL 2020-11-07 08:41:00 Yuriy Parker [facility] ALKALINE PHOSPHATASE 2020-11-07 08:41:00 Yuriy Parker [facility] ALANINE AMINOTRANSFERASE 2020-11-07 08:41:00 Yuriy Parker [facility] ASPARTATE AMINOTRANSFERASE 2020-11-07 08:41:00 Juan Parker [facility] TOTAL PROTEIN 2020-11-07 08:41:00 Yuriy Parker [facility] FRACTIONATED BILIRUBIN 2020-11-07 08:41:00 Yuriy Parker [facility] GLUCOSE LEVEL 2020-11-07 08:41:00 Yuriy Parker [facility] BLOOD UREA NITROGEN 2020-11-07 08:41:00 Yuriy Parker [facility] ELECTROLYTE PANEL 2020-11-07 08:41:00 Yuriy Parker [facility] SERUM CREATININE 2020-11-07 08:41:[address] [facility] .GLOMERULAR FILTRATION 2020-11-07 08:41:00 Yuriy Parker [facility] CALCIUM LEVEL TOTAL 2020-11-07 08:41:00 Yuriy Parker [facility] Results CBC 2020-11-07 08:41:00 Yanet Gurrola [facility] MANUAL DIFFERENTIAL 2020-11-07 08:41:00 Yanet Gurrola [facility] CLOT EXPIRATION DATE 2020-11-07 08:41:00 Randolph Payne [facility] TMP INTERPRETATION 2020-11-07 08:41:00 Randolph Payne [facility] ANTIBODY SCREEN NEGATIVE [facility] OSCILLATORY PEP 2020-11-07 07:00:14 [facility]P 2020-11-07 01:00:10 Hayden [facility] ECHOCARDIOGRAM 2D LIMITED 2020-11-06 19:42:45 Evi Turner [facility] - FOLLOW UP [facility] OSCILLATORY PEP 2020-11-06 19:00:13 [facility]P 2020-11-06 13:00:14 [facility] HEPAT[facility] FUNCTION PANEL 2020-11-06 08:26:00 Yuriy Parker [facility] COMPREHENSIVE METABOLIC 2020-11-06 08:26:00 Yuriy Parker [facility] PANEL [facility] MAGNESIUM LEVEL 2020-11-06 08:26:00 Yuriy Parker [facility] PHOSPHORUS LEVEL 2020-11-06 08:26:[address] [facility] LACTATE DEHYDROGENASE 2020-11-06 08:26:00 Yanet Gurrola [facility] COMPLETE BLOOD COUNT W/ 2020-11-06 08:26:00 Yanet [facility] APTT 2020-11-06 08:26:00 Mari Lovell [facility] URIC ACID 2020-11-06 08:26:00 Mari Lovell [facility] PROTHROMBIN TIME 2020-11-06 08:26:00 Mari Lovell [facility] ALBUMIN LEVEL 2020-11-06 08:26:00 Yuriy Parker [facility] ALKALINE PHOSPHATASE 2020-11-06 08:26:00 [facility]uri[facility] Parker [facility] ALANINE AMINOTRANSFERASE 2020-11-06 08:26:00 Yuriy Parker [facility] ASPARTATE AMINOTRANSFERASE 2020-11-06 08:26:00 Juan Parker [facility] TOTAL PROTEIN 2020-11-06 08:26:00 Yuriy Parker [facility] FRACTIONATED BILIRUBIN 2020-11-06 08:26:00 Yuriy Parker [facility] GLUCOSE LEVEL 2020-11-06 08:26:00 Yuriy Parker [facility] BLOOD UREA NITROGEN 2020-11-06 08:26:00 Yuriy Parker [facility] ELECTROLYTE PANEL 2020-11-06 08:26:00 Yuriy Parker [facility] SERUM CREATININE 2020-11-06 08:26:[address] [facility] .GLOMERULAR FILTRATION 2020-11-06 08:26:00 Yuriy Parker [facility] CALCIUM LEVEL TOTAL 2020-11-06 08:26:00 Yuriy Parkre [facility] Results CBC 2020-11-06 08:26:00 Yanet Gurrola [facility] MANUAL DIFFERENTIAL 2020-11-06 08:26:00 Yanet Gurrola [facility] OSCILLATORY PEP 2020-11-06 01:00:09 Hayden [facility] XR CHEST 1 VW 2020-11-05 20:44:40 Evi Turner [facility] OSCILLATORY PEP 2020-11-05 19:00:05 Hayden [facility] OSCILLATORY PEP 2020-11-05 13:00:07 Blake, [facility] o f [facility] HEPATIC FUNCTION PANEL 2020-11-05 07:14:00 Yuriy Parker [facility] COMPREHENSIVE METABOLIC 2020-11-05 07:14:00 Yuriy Parker [facility] PANEL [facility] MAGNESIUM LEVEL 2020-11-05 07:14:[address] [facility] PHOSPHORUS LEVEL 2020-11-05 07:14:00 [facility]uriy Parker [facility] LACTATE DEHYDROGENASE 2020-11-05 07:14:00 Yanet Gurrola [facility] COMPLETE BLOOD COUNT W/ 2020-11-05 07:14:00 Yanet [facility]rol[facility] URIC ACID 2020-11-05 07:14:00 Mari Lovell [facility] ALBUMIN LEVEL 2020-11-05 07:14:00 Yuriy Parker [facility] ALKALINE PHOSPHATASE 2020-11-05 07:14:00 Yuriy Parker Un iversity [facility] ALANINE AMINOTRANSFERASE 2020-11-05 07:14:00 Yuriy Parker [facility] ASPARTATE AMINOTRANSFERASE 2020-11-05 07:14:00 Juan Parker [facility] TOTAL PROTEIN 2020-11-05 07:14:[address] [facility] FRACTIONATED BILIRUBIN 2020-11-05 07:14:00 Yuriy Parker [facility] GLUCOSE LEVEL 2020-11-05 07:14:[address] [facility] BLOOD UREA NITROGEN 2020-11-05 07:14:00 Yuriy Parker Uni versity [facility] ELECTROLYTE PANEL 2020-11-05 07:14:00 Yuriy Parker [facility] SERUM CREATININE 2020-11-05 07:14:[address] [facility] .GLOMERULAR FILTRATION 2020-11-05 07:14:00 Yuriy Parker [facility] RATE [facility] CALCIUM LEVEL TOTAL 2020-11-05 07:14:00 Yuriy Parker [facility] Results CBC 2020-11-05 07:14:00 Yanet Gurrola [facility] MANUAL DIFFERENTIAL 2020-11-05 07:14:00 Yanet Gurrola [facility] OSCILLATORY PEP 2020-11-05 02:07:06 Hayden [facility] o f [facility] HEPATIC FUNCTION PANEL 2020-11-04 08:46:00 Yuriy Parker [facility] COMPREHENSIVE METABOLIC 2020-11-04 08:46:[address] [facility] MAGNESIUM LEVEL 2020-11-04 08:46:00 Yuriy Parker [facility] PHOSPHORUS LEVEL 2020-11-04 08:46:[address] [facility] LACTATE DEHYDROGENASE 2020-11-04 08:46:00 Yanet Gurrola [facility] COMPLETE BLOOD COUNT W/ 2020-11-04 08:46:00 Yanet Gurrola [facility] DIFFERENTIAL [facility] TYPE AND SCREEN 2020-11-04 08:46:00 Vania Pascual [facility] URIC ACID 2020-11-04 08:46:00 Mari Lovell [facility] ABORH 2020-11-04 08:46:00 Randolph Payne [facility] ANTIBODY SCREEN 2020-11-04 08:46:00 DionnaRandolph jones [facility] ALBUMIN LEVEL 2020-11-04 08:46:00 Yuriy Parker [facility] ALKALINE PHOSPHATASE 2020-11-04 08:46:00 Yuriy Parker [facility] ALANINE AMINOTRANSFERASE 2020-11-04 08:46:00 Yuriy Parker [facility] ASPARTATE AMINOTRANSFERASE 2020-11-04 08:46:00 Juan Parker [facility] TOTAL PROTEIN 2020-11-04 08:46:00 Yuriy Parker [facility] FRACTIONATED BILIRUBIN 2020-11-04 08:46:00 Yuriy Parker [facility] GLUCOSE LEVEL 2020-11-04 08:46:00 Yuriy Parker [facility] BLOOD UREA NITROGEN 2020-11-04 08:46:00 Yuriy Parker [facility] ELECTROLYTE PANEL 2020-11-04 08:46:00 Yuriy Parker [facility] SERUM CREATININE 2020-11-04 08:46:[address] [facility] .GLOMERULAR FILTRATION 2020-11-04 08:46:00 Yuriy Parker [facility] CALCIUM LEVEL TOTAL 2020-11-04 08:46:00 Yuriy Parker [facility] Results CBC 2020-11-04 08:46:00 Yanet Gurrola [facility] MANUAL DIFFERENTIAL 2020-11-04 08:46:00 Yanet Gurrola [facility] CLOT EXPIRATION DATE 2020-11-04 08:46:00 Randolph Payne [facility] TMP INTERPRETATION 2020-11-04 08:46:00 Randolph Payne [facility] ANTIBODY SCREEN NEGATIVE MD Thompson [facility] POC GLUCOSE SCREEN 2020-11-04 04:28:00 [facility] (SARS-COV-2) 2020-11-03 11:37:00 Hayden [facility] PCR-ASYMPTOMATIC [facility] HEPATIC FUNCTION PANEL 2020-11-03 08:10:00 Yuriy Parker [facility] COMPREHENSIVE METABOLIC 2020-11-03 08:10:[address] [facility] MAGNESIUM LEVEL 2020-11-03 08:10:00 Yuriy Parker [facility] PHOSPHORUS LEVEL 2020-11-03 08:10:[address] [facility] LACTATE DEHYDROGENASE 2020-11-03 08:10:00 Yanet Gurrola [facility] COMPLETE BLOOD COUNT W/ 2020-11-03 08:10:00 Yanet [facility] APTT 2020-11-03 08:10:00 Mari Lovell [facility] URIC ACID 2020-11-03 08:10:00 Mari Lovell [facility] PROTHROMBIN TIME 2020-11-03 08:10:00 Mari Lovell [facility] ALBUMIN LEVEL 2020-11-03 08:10:00 Yuriy Parker [facility] ALKALINE PHOSPHATASE 2020-11-03 08:10:00 Yuriy Parker [facility] ALANINE AMINOTRANSFERASE 2020-11-03 08:10:00 Yuriy Parker [facility] ASPARTATE AMINOTRANSFERASE 2020-11-03 08:10:00 Juan Parker [facility] TOTAL PROTEIN 2020-11-03 08:10:00 Yuriy Parker [facility] FRACTIONATED BILIRUBIN 2020-11-03 08:10:00 Yuriy Parker [facility] GLUCOSE LEVEL 2020-11-03 08:10:00 Yuriy Parker [facility] BLOOD UREA NITROGEN 2020-11-03 08:10:00 Yuriy Parker [facility] ELECTROLYTE PANEL 2020-11-03 08:10:00 Yuriy Parker [facility] SERUM CREATININE 2020-11-03 08:10:[address] [facility] .GLOMERULAR FILTRATION 2020-11-03 08:10:00 Yuriy Parker [facility] CALCIUM LEVEL TOTAL 2020-11-03 08:10:00 Yuriy Parker [facility] Results CBC 2020-11-03 08:10:00 Yanet Gurrola [facility] MANUAL DIFFERENTIAL 2020-11-03 08:10:00 Yanet Gurrola [facility] RIGHT HEART CATH 2020-11-02 15:17:00 Cj Coyne [facility] POC OXIMETRY VENOUS 2020-11-02 15:00:00 [facility] OXIMETRY VENOUS 2020-11-02 14:57:00 Hayden [facility] APTT 2020-11-02 09:41:00 Cj Coyne [facility] PROTHROMBIN TIME 2020-11-02 09:41:00 Cj Coyne [facility] IMMATURE PLATELET FRACTION 2020-11-02 09:41:00 Cj Coyne [facility] RETICULOCYTE COUNT 2020-11-02 09:41:00 [facility] HEPATIC FUNCTION PANEL 2020-11-02 09:41:00 Yuriy Parker [facility] COMPREHENSIVE METABOLIC 2020-11-02 09:41:00 Yuriy Parker [facility] PANEL [facility] MAGNESIUM LEVEL 2020-11-02 09:41:00 Yuriy Parker [facility] PHOSPHORUS LEVEL 2020-11-02 09:41:[address] [facility] LACTATE DEHYDROGENASE 2020-11-02 09:41:00 Yanet Gurrola [facility] COMPLETE BLOOD COUNT W/ 2020-11-02 09:41:00 Yanet Gurrola [facility] DIFFERENTIAL [facility] URIC ACID 2020-11-02 09:41:00 Mari Lovell [facility] ALBUMIN LEVEL 2020-11-02 09:41:00 Yuriy Parker [facility] ALKALINE PHOSPHATASE 2020-11-02 09:41:00 [facility]uriy Parker [facility] ALANINE AMINOTRANSFERASE 2020-11-02 09:41:00 Yuriy Parker [facility] ASPARTATE AMINOTRANSFERASE 2020-11-02 09:41:00 Juan Parker [facility] TOTAL PROTEIN 2020-11-02 09:41:00 Yuriy Parker [facility] FRACTIONATED BILIRUBIN 2020-11-02 09:41:00 Yuriy Parker [facility] GLUCOSE LEVEL 2020-11-02 09:41:00 Yuriy Parker [facility] BLOOD UREA NITROGEN 2020-11-02 09:41:00 Yuriy Parker [facility] ELECTROLYTE PANEL 2020-11-02 09:41:00 Yuriy Parker [facility] SERUM CREATININE 2020-11-02 09:41:[address] [facility] .GLOMERULAR FILTRATION 2020-11-02 09:41:00 Yuriy Parker [facility] RATE [facility] CALCIUM LEVEL TOTAL 2020-11-02 09:41:00 Yuriy Parker [facility] Results CBC 2020-11-02 09:41:00 Yanet Gurrola [facility] MANUAL DIFFERENTIAL 2020-11-02 09:41:00 Yanet Gurrola [facility] TRANSFUSE RED BLOOD CELLS 2020-11-01 16:00:00 Kristina Blake [facility] PREPARE RBC 2020-11-01 11:07:00 Kristina Blake [place] [facility] PRBC PRODUCT READY FOR 2020-11-01 11:07:00 Krsitina Blake [facility] ALL ROUND LOGGER [facility] VRE CULTURE 2020-11-01 10:36:00 Yuriy Parker [facility] HEPATIC FUNCTION PANEL 2020-11-01 09:56:00 Yuriy Parker [facility] COMPREHENSIVE METABOLIC 2020-11-01 09:56:[address] [facility] MAGNESIUM LEVEL 2020-11-01 09:56:00 Yuriy Parker [facility] PHOSPHORUS LEVEL 2020-11-01 09:56:[address] [facility] LACTATE DEHYDROGENASE 2020-11-01 09:56:00 Yanet Gurrola [facility] COMPLETE BLOOD COUNT W/ 2020-11-01 09:56:00 Yanet Gurrola [facility] DIFFERENTIAL [facility] TYPE AND SCREEN 2020-11-01 09:56:00 Vania Pascual [facility] URIC ACID 2020-11-01 09:56:00 Mari Lovell [facility] ABORH 2020-11-01 09:56:00 [facility] ANTIBODY SCREEN 2020-11-01 09:56:00 [facility] ALBUMIN LEVEL 2020-11-01 09:56:00 Yuriy Parker [facility] ALKALINE PHOSPHATASE 2020-11-01 09:56:00 [facility]uri[facility] ALANINE AMINOTRANSFERASE 2020-11-01 09:56:00 Yuriy Parker [facility] ASPARTATE AMINOTRANSFERASE 2020-11-01 09:56:00 Juan Parker [facility] TOTAL PROTEIN 2020-11-01 09:56:00 Yuriy Parker [facility] FRACTIONATED BILIRUBIN 2020-11-01 09:56:00 Yuriy Parker [facility] GLUCOSE LEVEL 2020-11-01 09:56:00 Yuriy Parker [facility] BLOOD UREA NITROGEN 2020-11-01 09:56:00 Yuriy Parker [facility] ELECTROLYTE PANEL 2020-11-01 09:56:00 [facility] SERUM CREATININE 2020-11-01 09:56:[address] [facility] .GLOMERULAR FILTRATION 2020-11-01 09:56:00 Yuriy Parker [facility] RATE [facility] CALCIUM LEVEL TOTAL 2020-11-01 09:56:00 Yuriy Parker [facility] Results CBC 2020-11-01 09:56:00 Yanet Gurrola [facility] MANUAL DIFFERENTIAL 2020-11-01 09:56:00 Yanet Gurrola [facility] CLOT EXPIRATION DATE 2020-11-01 09:56:00 Randolph Payne [facility] TMP INTERPRETATION 2020-11-01 09:56:00 Randolph Payne [facility] ANTIBODY SCREEN NEGATIVE MD [facility] NT PRO BNP 2020-10-31 09:13:00 Mari Lovell [facility] HEPATIC FUNCTION PANEL 2020-10-31 09:13:00 Yuriy Parker [facility] COMPREHENSIVE METABOLIC 2020-10-31 09:13:00 Yuriy Parker [facility] PANEL [facility] MAGNESIUM LEVEL 2020-10-31 09:13:00 Yuriy Parker [facility] PHOSPHORUS LEVEL 2020-10-31 09:13:[address] [facility] LACTATE DEHYDROGENASE 2020-10-31 09:13:00 Yanet [facility]rol[facility] COMPLETE BLOOD COUNT W/ 2020-10-31 09:13:00 Yanet Gurrola Uni versity [facility] DIFFERENTIAL [facility] URIC ACID 2020-10-31 09:13:00 Mari Lovell [facility] ALBUMIN LEVEL 2020-10-31 09:13:00 Yuriy Parker [facility] ALKALINE PHOSPHATASE 2020-10-31 09:13:00 Yuriy Parker [facility] ALANINE AMINOTRANSFERASE 2020-10-31 09:13:00 Yuriy Parker [facility] ASPARTATE AMINOTRANSFERASE 2020-10-31 09:13:00 Juan Parker [facility] TOTAL PROTEIN 2020-10-31 09:13:00 Yuriy Parker [facility] FRACTIONATED BILIRUBIN 2020-10-31 09:13:00 Yuriy Parker [facility] GLUCOSE LEVEL 2020-10-31 09:13:00 Yuriy Parker [facility] BLOOD UREA NITROGEN 2020-10-31 09:13:00 Yuriy Parker [facility] ELECTROLYTE PANEL 2020-10-31 09:13:00 [facility] SERUM CREATININE 2020-10-31 09:13:[address] [facility] .GLOMERULAR FILTRATION 2020-10-31 09:13:00 Yuriy Parker [facility] CALCIUM LEVEL TOTAL 2020-10-31 09:13:00 Yuriy Parker [facility] Results CBC 2020-10-31 09:13:00 Yanet Gurrola [facility] MANUAL DIFFERENTIAL 2020-10-31 09:13:00 Yanet Gurrola [facility] TRANSFUSE RED BLOOD CELLS 2020-10-30 20:20:00 Kristina [facility] URINALYSIS MICROSCOPIC 2020-10-30 18:46:00 Kristina Blake [facility] MICROALBUMIN/CREATININE 2020-10-30 18:46:00 Denny Nayak [facility] RATIO, URINE [facility] PROTEIN / CREATININE RATIO 2020-10-30 18:46:00 Denny Nayak [facility] URINE [facility] ALBUMIN LEVEL URINE 2020-10-30 18:46:00 Cory Hickman [facility] URINALYSIS WITH 2020-10-30 18:46:00 Bebe Blake [place] [facility] [place] MICROSCOPIC IF INDICATED [facility] LOWER RESPIRATORY CULTURE 2020-10-30 18:46:00 [facility]/ GRAM STAIN [facility] POC GLUCOSE SCREEN 2020-10-30 14:02:00 Kristina Blake [facility] PREPARE RBC 2020-10-30 09:21:00 [facility] PRBC PRODUCT READY FOR 2020-10-30 09:21:00 Kristina Blake [facility] ALL ROUND LOGGER [facility] HEPATIC FUNCTION PANEL 2020-10-30 08:45:00 Yuriy Parker [facility] COMPREHENSIVE METABOLIC 2020-10-30 08:45:00 Yuriy Parker [facility] PANEL [facility] MAGNESIUM LEVEL 2020-10-30 08:45:00 Yuriy Parker [facility] PHOSPHORUS LEVEL 2020-10-30 08:45:[address] [facility] LACTATE DEHYDROGENASE 2020-10-30 08:45:00 Yanet Gurrola [facility] COMPLETE BLOOD COUNT W/ 2020-10-30 08:45:00 Yanet [facility]rola [facility] APTT 2020-10-30 08:45:00 Mari Lovell [facility] URIC ACID 2020-10-30 08:45:00 Mari Lovell [facility] PROTHROMBIN TIME 2020-10-30 08:45:00 Mari Lovell [facility] ALBUMIN LEVEL 2020-10-30 08:45:00 Yuriy Parker [facility] ALKALINE PHOSPHATASE 2020-10-30 08:45:00 Yuri[facility] Parker [facility] ALANINE AMINOTRANSFERASE 2020-10-30 08:45:00 Yuriy Parker [facility] ASPARTATE AMINOTRANSFERASE 2020-10-30 08:45:00 Juan Parker [facility] TOTAL PROTEIN 2020-10-30 08:45:00 Yuriy Parker [facility] FRACTIONATED BILIRUBIN 2020-10-30 08:45:00 Yuriy Parker [facility] GLUCOSE LEVEL 2020-10-30 08:45:00 Yuriy Parker [facility] BLOOD UREA NITROGEN 2020-10-30 08:45:00 Yuriy Parker [facility] ELECTROLYTE PANEL 2020-10-30 08:45:00 Yuriy Parker [facility] SERUM CREATININE 2020-10-30 08:45:[address] [facility] .GLOMERULAR FILTRATION 2020-10-30 08:45:00 Yuriy Parker [facility] CALCIUM LEVEL TOTAL 2020-10-30 08:45:00 Yuriy Parker [facility] Results CBC 2020-10-30 08:45:00 Yanet Gurrola [facility] MANUAL DIFFERENTIAL 2020-10-30 08:45:00 Yanet Gurrola [facility] POC GLUCOSE SCREEN 2020-10-30 05:05:00 [facility] GLUCOSE SCREEN 2020-10-29 22:56:00 [facility]CHOC[facility] 2D COMPLETE 2020-10-29 16:59:06 Tre Banerjee [facility] POC GLUCOSE SCREEN 2020-10-29 16:54:00 Hayden [facility] POC GLUCOSE SCREEN 2020-10-29 13:00:00 Hayden [facility] HEPATIC FUNCTION PANEL 2020-10-29 09:26:00 Yuriy Parker [facility] COMPREHENSIVE METABOLIC 2020-10-29 09:26:00 Yuriy Parker [facility] PANEL [facility] MAGNESIUM LEVEL 2020-10-29 09:26:00 Yuriy Parker [facility] PHOSPHORUS LEVEL 2020-10-29 09:26:[address] [facility] LACTATE DEHYDROGENASE 2020-10-29 09:26:00 [facility] COMPLETE BLOOD COUNT W/ 2020-10-29 09:26:00 Yanet [facility] TYPE AND SCREEN 2020-10-29 09:26:00 Vania Pascual [facility] URIC ACID 2020-10-29 09:26:00 Mari Lovell [facility] ABORH 2020-10-29 09:26:00 [facility] ANTIBODY SCREEN 2020-10-29 09:26:00 Dionna[facility] ALBUMIN LEVEL 2020-10-29 09:26:00 Yuriy Parker [facility] ALKALINE PHOSPHATASE 2020-10-29 09:26:00 Yuriy Parker [facility] ALANINE AMINOTRANSFERASE 2020-10-29 09:26:00 Yuriy Parker [facility] ASPARTATE AMINOTRANSFERASE 2020-10-29 09:26:00 Juan Parker [facility] TOTAL PROTEIN 2020-10-29 09:26:00 Yuriy Parker [facility] FRACTIONATED BILIRUBIN 2020-10-29 09:26:00 Yuriy Parker [facility] GLUCOSE LEVEL 2020-10-29 09:26:00 Yruiy Parker [facility] BLOOD UREA NITROGEN 2020-10-29 09:26:00 Yuriy Parker [facility] ELECTROLYTE PANEL 2020-10-29 09:26:00 Yuriy Parker [facility] SERUM CREATININE 2020-10-29 09:26:[address] [facility] .GLOMERULAR FILTRATION 2020-10-29 09:26:00 Yuriy Parker [facility] CALCIUM LEVEL TOTAL 2020-10-29 09:26:00 Yuriy Parker [facility] Results CBC 2020-10-29 09:26:00 Yanet Gurrola [facility] MANUAL DIFFERENTIAL 2020-10-29 09:26:00 Yanet Gurrola [facility] CLOT EXPIRATION DATE 2020-10-29 09:26:00 Randolph Payne [facility] TMP INTERPRETATION 2020-10-29 09:26:00 [facility] ANTIBODY S[facility]EN NEGATIVE MD Thompson [facility] TMP CROSSMATCH 2020-10-29 09:26:00 Randolph Payne o [facility] INTERPRETATION [facility] OSCILLATORY PEP 2020-10-29 07:00:13 [facility] o [facility] OSCILLATORY PEP 2020-10-29 01:00:08 Lavonne [facility] POC GLUCOSE SCREEN 2020-10-28 22:29:00 Hayden [facility] OSCILLATORY PEP 2020-10-28 19:00:21 Lavonne [facility] POC GLUCOSE SCREEN 2020-10-28 17:17:00 Hayden [facility] PROTEIN / CREATININE RATIO 2020-10-28 17:14:00 Denny Nayak [facility] URINE [facility] MICROALBUMIN/CREATININE 2020-10-28 17:14:00 Denny Nayak [facility] RATIO, URINE [facility] ALBUMIN LEVEL URINE 2020-10-28 17:14:[address] [facility] NT PRO BNP 2020-10-28 15:56:00 Lavonne [facility] XR CHEST 1 VW PORTABLE 2020-10-28 15:46:00 Tre Banerjee [facility] POC GLUCOSE SCREEN 2020-10-28 14:25:00 Hayden [facility] POC GLUCOSE SCREEN 2020-10-28 13:58:00 Hayden [facility] HEPATIC FUNCTION PANEL 2020-10-28 09:39:00 Yuriy Parker [facility] COMPREHENSIVE METABOLIC 2020-10-28 09:39:00 Yuriy Parker [facility] PANEL [facility] MAGNESIUM LEVEL 2020-10-28 09:39:00 Yuriy Parker [facility] PHOSPHORUS LEVEL 2020-10-28 09:39:00 [facility] LACTATE DEHYDROGENASE 2020-10-28 09:39:00 Yanet [facility]rol[facility] COMPLETE BLOOD COUNT W/ 2020-10-28 09:39:00 Yanet Gurrola [facility] [place] DIFFERENTIAL [facility] URIC ACID 2020-10-28 09:39:00 Mari Lovell [facility] ALBUMIN LEVEL 2020-10-28 09:39:00 Yuriy Parker [facility] ALKALINE PHOSPHATASE 2020-10-28 09:39:00 [facility]uri[facility] ALANINE AMINOTRANSFERASE 2020-10-28 09:39:00 Yuriy Parker [facility] ASPARTATE AMINOTRANSFERASE 2020-10-28 09:39:00 Juan Parker [facility] TOTAL PROTEIN 2020-10-28 09:39:00 Yuriy Parker [facility] FRACTIONATED BILIRUBIN 2020-10-28 09:39:00 Yuriy Parker [facility] GLUCOSE LEVEL 2020-10-28 09:39:00 Yuriy Parker [facility] BLOOD UREA NITROGEN 2020-10-28 09:39:00 Yuriy Parker [facility] ELECTROLYTE PANEL 2020-10-28 09:39:00 Yuriy Parker [facility] SERUM CREATININE 2020-10-28 09:39:[address] [facility] .GLOMERULAR FILTRATION 2020-10-28 09:39:00 Yuriy Parker [facility] RATE [facility] CALCIUM LEVEL TOTAL 2020-10-28 09:39:00 Yuriy Parker [facility] Results CBC 2020-10-28 09:39:00 Yanet Gurrola [facility] MANUAL DIFFERENTIAL 2020-10-28 09:39:00 Yanet Gurrola [facility] OSCILLATORY PEP 2020-10-28 07:00:14 [facility] POC GLUCOSE SCREEN 2020-10-28 05:15:00 Hayden [facility] OSCILLATORY PEP 2020-10-28 01:00:07 [facility], 12-LEAD (PORTABLE) 2020-10-28 00:00:00 Tre Banerjee [facility] POC GLUCOSE SCREEN 2020-10-27 23:00:00 Hayden [facility] OSCILLATORY PEP 2020-10-27 19:00:51 [facility] COVID-19 (SARS-COV-2) 2020-10-27 17:51:00 Randolph Payne [facility] PCR-ASYMPTOMATIC [facility] URINE CULTURE 2020-10-27 17:22:00 Mari Lovell [facility] POC GLUCOSE SCREEN 2020-10-27 16:36:00 Hayden [facility] TOBRAMYCIN LEVEL RANDOM 2020-10-27 14:55:00 Kaykay Dodd [facility] POC GLUCOSE SCREEN 2020-10-27 10:18:00 Randolph Payne [facility] HBV DNA QUANT 2020-10-27 08:32:00 Mari Lovell [facility] PROTHROMBIN TIME 2020-10-27 08:32:[address] [facility] APTT 2020-10-27 08:32:00 Yuriy Parker [facility] HEPATIC FUNCTION PANEL 2020-10-27 08:32:00 Yuriy Parker [facility] COMPREHENSIVE METABOLIC 2020-10-27 08:32:00 Yuriy Parker [facility] MAGNESIUM LEVEL 2020-10-27 08:32:00 Yuriy Parker [facility] PHOSPHORUS LEVEL 2020-10-27 08:32:[address] [facility] LACTATE DEHYDROGENASE 2020-10-27 08:32:00 Yanet Gurrola [facility] FERRITIN LVL 2020-10-27 08:32:00 Yanet Gurrola [facility] COMPLETE BLOOD COUNT W/ 2020-10-27 08:32:00 Yanet Gurrola [facility] DIFFERENTIAL [facility] ALBUMIN LEVEL 2020-10-27 08:32:00 Yuriy Parker [facility] ALKALINE PHOSPHATASE 2020-10-27 08:32:00 Yuriy [facility] ALANINE AMINOTRANSFERASE 2020-10-27 08:32:00 Yuriy Parker [facility] ASPARTATE AMINOTRANSFERASE 2020-10-27 08:32:00 Juan Parker [facility] TOTAL PROTEIN 2020-10-27 08:32:00 Yuriy Parker [facility] FRACTIONATED BILIRUBIN 2020-10-27 08:32:00 Yuriy Parker [facility] GLUCOSE LEVEL 2020-10-27 08:32:00 Yuriy Parker [facility] BLOOD UREA NITROGEN 2020-10-27 08:32:00 Yuriy Parker [facility] ELECTROLYTE PANEL 2020-10-27 08:32:00 Yuriy Parker [facility] SERUM CREATININE 2020-10-27 08:32:[address] [facility] .GLOMERULAR FILTRATION 2020-10-27 08:32:00 Yuriy Parker [facility] CALCIUM LEVEL TOTAL 2020-10-27 08:32:00 Yuriy Parker [facility] Results CBC 2020-10-27 08:32:00 Yanet Gurrola [facility] MANUAL DIFFERENTIAL 2020-10-27 08:32:00 Yanet Gurrola [facility] POC GLUCOSE SCREEN 2020-10-27 04:53:00 Randolph Payne [facility] OSCILLATORY PEP 2020-10-27 01:00:08 Banerjee, [facility] URINALYSIS MICROSCOPIC 2020-10-26 22:41:00 Mari Lovell [facility] URINALYSIS WITH 2020-10-26 22:41:00 Randolph Payne [facility] MICROSCOPIC IF INDICATED MD [facility] POC GLUCOSE SCREEN 2020-10-26 22:23:00 Randolph Payne [facility] OSCILLATORY PEP 2020-10-26 19:00:45 Lavonne [facility] POC GLUCOSE SCREEN 2020-10-26 16:14:00 Randolph Payne [facility] OSCILLATORY PEP 2020-10-26 13:00:16 Lavonne [facility] POC GLUCOSE SCREEN 2020-10-26 11:02:00 Randolph Payne [facility] PROTHROMBIN TIME 2020-10-26 09:43:00 [facility]uriy Parker [facility] APTT 2020-10-26 09:43:00 Yuriy Parker [facility] HEPATIC FUNCTION PANEL 2020-10-26 09:43:00 Yuriy Parker [facility] COMPREHENSIVE METABOLIC 2020-10-26 09:43:00 Yuriy Parker [facility] PANEL [facility] MAGNESIUM LEVEL 2020-10-26 09:43:00 Yuriy Parker [facility] PHOSPHORUS LEVEL 2020-10-26 09:43:00 Yuryi Parker [facility] LACTATE DEHYDROGENASE 2020-10-26 09:43:00 Yanet Gurrola [facility] FERRITIN LVL 2020-10-26 09:43:00 Yanet Gurrola [facility] COMPLETE BLOOD COUNT W/ 2020-10-26 09:43:00 Yanet Gurrola [facility] DIFFERENTIAL [facility] TYPE AND SCREEN 2020-10-26 09:43:00 Vania Pascual [facility] ABORH 2020-10-26 09:43:00 Randolph Payne [facility] ANTIBODY SCREEN 2020-10-26 09:43:00 [facility] ALBUMIN LEVEL 2020-10-26 09:43:00 Yuriy Parker [facility] ALKALINE PHOSPHATASE 2020-10-26 09:43:00 Yuriy Parker [facility] ALANINE AMINOTRANSFERASE 2020-10-26 09:43:00 Yuriy Parker [facility] ASPARTATE AMINOTRANSFERASE 2020-10-26 09:43:00 Juan Parker [facility] TOTAL PROTEIN 2020-10-26 09:43:00 Yuriy Parker [facility] FRACTIONATED BILIRUBIN 2020-10-26 09:43:00 Yuriy Parker [facility] GLUCOSE LEVEL 2020-10-26 09:43:00 Yuriy Parker [facility] BLOOD UREA NITROGEN 2020-10-26 09:43:00 Yuriy Parker [facility] ELECTROLYTE PANEL 2020-10-26 09:43:00 Yuriy Parker [facility] SERUM CREATININE 2020-10-26 09:43:[address] [facility] .GLOMERULAR FILTRATION 2020-10-26 09:43:00 Yuriy Parker [facility] RATE [facility] CALCIUM LEVEL TOTAL 2020-10-26 09:43:00 Yuriy Parker [facility] Results CBC 2020-10-26 09:43:00 Yanet Gurrola [facility] MANUAL DIFFERENTIAL 2020-10-26 09:43:00 Yanet Gurrola [facility] TMP INTERPRETATION 2020-10-26 09:43:00 Randolph Payne [facility] ANTIBODY SCREEN NEGATIVE MD [facility] CLOT EXPIRATION DATE 2020-10-26 09:43:00 Randolph Payne [facility] OSCILLATORY PEP 2020-10-26 07:00:22 Banerjee, [facility] POC GLUCOSE SCREEN 2020-10-26 06:29:[address] [facility] OSCILLATORY PEP 2020-10-26 01:00:19 Lavonne [facility] POC GLUCOSE SCREEN 2020-10-25 23:13:00 Randolph Payne [employer] [facility] VRE CULTURE 2020-10-25 21:51:00 Yuriy Parker [facility] POC GLUCOSE SCREEN 2020-10-25 17:26:[address] [facility] TRANSFUSE RED BLOOD CELLS 2020-10-25 17:05:00 Randolph [facility] OSCILLATORY PEP 2020-10-25 13:00:10 Darryl Banerjee [facility] PREPARE RBC 2020-10-25 12:49:00 Randolph Payne [place] f [facility] PRBC PRODUCT READY FOR 2020-10-25 12:49:00 Randolph Payne [facility] ALL ROUND LOGGER [facility] POC GLUCOSE SCREEN 2020-10-25 11:03:00 Randolph Payne [facility] PROTHROMBIN TIME 2020-10-25 10:07:[address] [facility] APTT 2020-10-25 10:07:00 Yuriy Parker [facility] HEPATIC FUNCTION PANEL 2020-10-25 10:07:00 Yuriy Parker [facility] COMPREHENSIVE METABOLIC 2020-10-25 10:07:00 Yuriy Parker [facility] PANEL [facility] MAGNESIUM LEVEL 2020-10-25 10:07:00 Yuriy Parker [facility] PHOSPHORUS LEVEL 2020-10-25 10:07:[address] [facility] LACTATE DEHYDROGENASE 2020-10-25 10:07:00 Yanet Gurrola [facility] FERRITIN LVL 2020-10-25 10:07:00 Yanet Gurrola [facility] COMPLETE BLOOD COUNT W/ 2020-10-25 10:07:00 [facility] ALBUMIN LEVEL 2020-10-25 10:07:00 Yuriy Parker [facility] ALKALINE PHOSPHATASE 2020-10-25 10:07:00 [facility]uri[facility] ALANINE AMINOTRANSFERASE 2020-10-25 10:07:00 Yuriy Parker [facility] ASPARTATE AMINOTRANSFERASE 2020-10-25 10:07:00 Juan Parker [facility] TOTAL PROTEIN 2020-10-25 10:07:00 Yuriy Parker [facility] FRACTIONATED BILIRUBIN 2020-10-25 10:07:00 Yuriy Parker [facility] GLUCOSE LEVEL 2020-10-25 10:07:00 Yuriy Parker [facility] BLOOD UREA NITROGEN 2020-10-25 10:07:00 Yuriy Parker [facility] ELECTROLYTE PANEL 2020-10-25 10:07:00 Yuriy Parker [facility] SERUM CREATININE 2020-10-25 10:07:[address] [facility] .GLOMERULAR FILTRATION 2020-10-25 10:07:00 Yuriy Parker [facility] CALCIUM LEVEL TOTAL 2020-10-25 10:07:00 Yuriy Parker [facility] Results CBC 2020-10-25 10:07:00 Yanet Gurrola [facility] MANUAL DIFFERENTIAL 2020-10-25 10:07:00 Yanet Gurrola [facility] POC GLUCOSE SCREEN 2020-10-25 05:20:00 Randolph Payne [facility] OSCILLATORY PEP 2020-10-25 01:00:12 BanerjeeBruno [facility] EKG, 12-LEAD (PORTABLE) 2020-10-25 00:00:00 Avila Head [facility] [place] POC GLUCOSE SCREEN 2020-10-24 22:56:[address] POC GLUCOSE SCREEN 2020-10-24 17:13:00 Randolph Payne [facility] OSCILLATORY PEP 2020-10-24 13:00:10 Darryl Banerjee [place] o f [facility] POC GLUCOSE SCREEN 2020-10-24 10:35:00 Randolph Payne [facility] PROTHROMBIN TIME 2020-10-24 09:49:[address] [facility] APTT 2020-10-24 09:49:00 Yuriy Parker [facility] HEPATIC FUNCTION PANEL 2020-10-24 09:49:00 Yuriy Parker [facility] COMPREHENSIVE METABOLIC 2020-10-24 09:49:00 Yuriy Parker [facility] PANEL [facility] MAGNESIUM LEVEL 2020-10-24 09:49:00 Yuriy Parker [facility] PHOSPHORUS LEVEL 2020-10-24 09:49:[address] [facility] LACTATE DEHYDROGENASE 2020-10-24 09:49:00 Yanet Gurrola [facility] FERRITIN LVL 2020-10-24 09:49:00 Yanet Gurrola [facility] COMPLETE BLOOD COUNT W/ 2020-10-24 09:49:00 Yanet Gurrola [facility] DIFFERENTIAL [facility] ALBUMIN LEVEL 2020-10-24 09:49:00 Yuriy Parker [facility] ALKALINE PHOSPHATASE 2020-10-24 09:49:00 [facility]uriy Parker [facility] ALANINE AMINOTRANSFERASE 2020-10-24 09:49:00 Yuriy Parker [facility] ASPARTATE AMINOTRANSFERASE 2020-10-24 09:49:00 Juan Parker [facility] TOTAL PROTEIN 2020-10-24 09:49:00 Yuriy Parker [facility] FRACTIONATED BILIRUBIN 2020-10-24 09:49:00 Yuriy Parker [facility] GLUCOSE LEVEL 2020-10-24 09:49:00 Yuriy Parker [facility] BLOOD UREA NITROGEN 2020-10-24 09:49:00 Yuriy Parker [facility] ELECTROLYTE PANEL 2020-10-24 09:49:00 Yuriy Parker [facility] SERUM CREATININE 2020-10-24 09:49:[address] [facility] .GLOMERULAR FILTRATION 2020-10-24 09:49:00 Yuriy Parker [facility] RATE [facility] CALCIUM LEVEL TOTAL 2020-10-24 09:49:00 Yuriy Parker [facility] Results CBC 2020-10-24 09:49:00 Yanet Gurrola [facility] MANUAL DIFFERENTIAL 2020-10-24 09:49:00 Yanet Gurrola [facility] POC GLUCOSE SCREEN 2020-10-24 05:35:00 Randolph Payne [facility] OSCILLATORY PEP 2020-10-24 01:00:14 Banerjee, [facility] o [facility] POC GLUCOSE SCREEN 2020-10-23 23:05:[address] [facility] OSCILLATORY PEP 2020-10-23 19:00:51 Lavonne [facility] US LEG VENOUS DOPPLER 2020-10-23 18:44:00 [facility] B[facility]AL [facility] XR ABDOMEN 1 VW PORTABLE 2020-10-23 17:11:33 Yuriy Parker [facility] POC GLUCOSE SCREEN 2020-10-23 17:03:00 Randolph Payne [facility] OSCILLATORY PEP 2020-10-23 13:00:16 Darryl Banerjee [facility] POC GLUCOSE SCREEN 2020-10-23 11:37:00 Randolph Payne [facility] PROTHROMBIN TIME 2020-10-23 08:59:[address] [facility] APTT 2020-10-23 08:59:00 Yuriy Parker [facility] HEPATIC FUNCTION PANEL 2020-10-23 08:59:00 Yuriy Parker [facility] COMPREHENSIVE METABOLIC 2020-10-23 08:59:00 Yuriy Parker [facility] PANEL [facility] MAGNESIUM LEVEL 2020-10-23 08:59:00 Yuriy Parker [facility] PHOSPHORUS LEVEL 2020-10-23 08:59:[address] [facility] LACTATE DEHYDROGENASE 2020-10-23 08:59:00 Yanet Gurrola [facility] FERRITIN LVL 2020-10-23 08:59:00 Yanet Gurrola [facility] COMPLETE BLOOD COUNT W/ 2020-10-23 08:59:00 Yanet Gurrola [facility] DIFFERENTIAL [facility] TYPE AND SCREEN 2020-10-23 08:59:00 Vania Pascual [facility] ABORH 2020-10-23 08:59:00 Randolph Payne [facility] ANTIBODY SCREEN 2020-10-23 08:59:00 Randolph Payne [facility] ALBUMIN LEVEL 2020-10-23 08:59:00 Yuriy Parker [facility] ALKALINE PHOSPHATASE 2020-10-23 08:59:00 [facility]uri[facility] ALANINE AMINOTRANSFERASE 2020-10-23 08:59:00 Yuriy Parker [facility] ASPARTATE AMINOTRANSFERASE 2020-10-23 08:59:00 Juan Parker [facility] TOTAL PROTEIN 2020-10-23 08:59:00 Yuriy Parker [facility] FRACTIONATED BILIRUBIN 2020-10-23 08:59:00 Yuriy Parker [facility] GLUCOSE LEVEL 2020-10-23 08:59:00 Yuriy Parker [facility] BLOOD UREA NITROGEN 2020-10-23 08:59:00 Yuriy Parker [facility] ELECTROLYTE PANEL 2020-10-23 08:59:00 Yuriy Parker [facility] SERUM CREATININE 2020-10-23 08:59:[address] [facility] .GLOMERULAR FILTRATION 2020-10-23 08:59:00 Yuriy Parker [facility] CALCIUM LEVEL TOTAL 2020-10-23 08:59:00 Yuriy Parker [facility] Results CBC 2020-10-23 08:59:00 Yanet Gurrola [facility] MANUAL DIFFERENTIAL 2020-10-23 08:59:00 Yanet Gurrola [facility] CLOT EXPIRATION DATE 2020-10-23 08:59:00 Randolph Payne [facility] TMP INTERPRETATION 2020-10-23 08:59:00 Randolph Payne [facility] ANTIBODY SCREEN NEGATIVE [facility] TMP CROSSMATCH 2020-10-23 08:59:00 Randolph Payne [place] [facility] INTERPRETATION [facility] [place] OSCILLATORY PEP 2020-10-23 07:00:20 Lavonne [facility] POC GLUCOSE SCREEN 2020-10-23 05:11:00 Randolph Payne [facility] URINALYSIS WITH 2020-10-23 04:37:00 Yuriy Parker [facility] MICROSCOPIC IF INDICATED MD [facility] URINALYSIS MICROSCOPIC 2020-10-23 04:37:00 Yuriy Parker [facility] [place] OSCILLATORY PEP 2020-10-23 01:00:13 Lavonne [facility] POC GLUCOSE SCREEN 2020-10-23 00:03:00 Randolph Payne [facility] [place] XR ABDOMEN 1 VW PORTABLE 2020-10-22 21:53:42 Yuriy Parker [facility] er [facility] OSCILLATORY PEP 2020-10-22 19:00:54 aLvonne [facility] POC GLUCOSE SCREEN 2020-10-22 17:08:00 Randolph Payne [facility] XR CHEST 1 VW PORTABLE 2020-10-22 14:41:55 Yuriy Parker [facility] [place] CHEST WO CONTRAST 2020-10-22 13:09:11 [facility] OSCILLATORY PEP 2020-10-22 13:00:17 Lavonne [facility] POC GLUCOSE SCREEN 2020-10-22 11:24:00 Randolph Payne [facility] [place] HC CENT/MARKOS CATH VENOUS 2020-10-22 08:28:00 Randolph Payne [facility] MANUAL DIFFERENTIAL 2020-10-22 08:28:[address] [facility] PROTHROMBIN TIME 2020-10-22 07:01:[address] [facility] APTT 2020-10-22 07:01:00 Yuriy Parker [facility] HEPATIC FUNCTION PANEL 2020-10-22 07:01:00 Yuriy Parker [facility] COMPREHENSIVE METABOLIC 2020-10-22 07:01:00 Yuriy Parker [facility] PANEL [facility] MAGNESIUM LEVEL 2020-10-22 07:01:00 Yuriy Parker [facility] PHOSPHORUS LEVEL 2020-10-22 07:01:[address] [facility] LACTATE DEHYDROGENASE 2020-10-22 07:01:00 Yanet Gurrola [facility] FERRITIN LVL 2020-10-22 07:01:00 Yanet Gurrola [facility] ALBUMIN LEVEL 2020-10-22 07:01:00 Yuriy Parker [facility] ALKALINE PHOSPHATASE 2020-10-22 07:01:00 [facility]uri[facility] ALANINE AMINOTRANSFERASE 2020-10-22 07:01:00 Yuriy Parker [facility] ASPARTATE AMINOTRANSFERASE 2020-10-22 07:01:00 Juan Parker [facility] TOTAL PROTEIN 2020-10-22 07:01:00 Yuriy Parker [facility] FRACTIONATED BILIRUBIN 2020-10-22 07:01:00 Yuriy Parker [facility] GLUCOSE LEVEL 2020-10-22 07:01:00 Yuriy Parker [facility] BLOOD UREA NITROGEN 2020-10-22 07:01:00 Yuriy Parker [facility] ELECTROLYTE PANEL 2020-10-22 07:01:00 [facility] SERUM CREATININE 2020-10-22 07:01:[address] [facility] .GLOMERULAR FILTRATION 2020-10-22 07:01:00 Yuriy Parker [facility] RATE [facility] CALCIUM LEVEL TOTAL 2020-10-22 07:01:00 Yuriy Parker [facility] OSCILLATORY PEP 2020-10-22 07:00:20 [facility] OSCILLATORY PEP 2020-10-22 01:00:12 [facility] POC GLUCOSE SCREEN 2020-10-21 23:10:[address] [facility] OSCILLATORY PEP 2020-10-21 19:00:52 [facility] GASTROINTESTINAL MULTIPLEX 2020-10-21 18:49:00 Yanet Gurrola [facility] PANEL PATH REVIEW [facility] C DIFFICILE DNA ASSAY 2020-10-21 18:49:00 Yanet [facility]rola [facility] GASTROINTESTINAL MULTIPLEX 2020-10-21 18:49:00 Yanet Gurrola [facility] PANEL [facility] C DIFFICILE DNA ASSAY PATH 2020-10-21 18:49:00 Yanet Gurrola [facility] REVIEW [facility] POC GLUCOSE SCREEN 2020-10-21 17:13:[address] [facility] POC GLUCOSE SCREEN 2020-10-21 11:15:[address] [facility] PROTHROMBIN TIME 2020-10-21 09:51:[address] [facility] APTT 2020-10-21 09:51:00 Yuriy Parker [facility] HEPATIC FUNCTION PANEL 2020-10-21 09:51:00 Yuriy Parker [facility] COMPREHENSIVE METABOLIC 2020-10-21 09:51:00 Yuriy Parker [facility] PANEL [facility] MAGNESIUM LEVEL 2020-10-21 09:51:00 Yuriy Parker [facility] PHOSPHORUS LEVEL 2020-10-21 09:51:[address] [facility] LACTATE DEHYDROGENASE 2020-10-21 09:51:00 Yanet Gurrola [facility] FERRITIN LVL 2020-10-21 09:51:00 Yanet Gurrola [facility] COMPLETE BLOOD COUNT W/ 2020-10-21 09:51:00 Yanet Gurrola [facility] DIFFERENTIAL [facility] ALBUMIN LEVEL 2020-10-21 09:51:00 Yuriy Parker [facility] ALKALINE PHOSPHATASE 2020-10-21 09:51:00 Yuriy Parker Un iversity [facility] ALANINE AMINOTRANSFERASE 2020-10-21 09:51:00 Yuriy Parker [facility] ASPARTATE AMINOTRANSFERASE 2020-10-21 09:51:00 Juan Parker [facility] TOTAL PROTEIN 2020-10-21 09:51:00 Yuriy Parker [facility] FRACTIONATED BILIRUBIN 2020-10-21 09:51:00 Yuriy Parker [facility] GLUCOSE LEVEL 2020-10-21 09:51:00 Yuriy Parker [facility] BLOOD UREA NITROGEN 2020-10-21 09:51:00 Yuriy Parker [facility] ELECTROLYTE PANEL 2020-10-21 09:51:00 Yuriy Parker [facility] SERUM CREATININE 2020-10-21 09:51:[address] [facility] .GLOMERULAR FILTRATION 2020-10-21 09:51:00 Yuriy Parker [facility] RATE [facility] CALCIUM LEVEL TOTAL 2020-10-21 09:51:00 Yuriy Parker [facility] Results CBC 2020-10-21 09:51:00 Yanet Gurrola [facility] MANUAL DIFFERENTIAL 2020-10-21 09:51:00 Yanet Gurrola [facility] CT ABDOMEN PELVIS WO 2020-10-21 05:16:13 Yanet Gurrola [facility] CONTRAST [facility] POC GLUCOSE SCREEN 2020-10-21 03:33:00 Randolph Payne [facility] OSCILLATORY PEP 2020-10-21 01:00:15 Banerjee [facility] LOWER RESPIRATORY CULTURE 2020-10-21 00:26:00 Parisa Andrews [facility] W/ GRAM STAIN [facility] POC GLUCOSE SCREEN 2020-10-20 22:16:00 Randolph Payne [facility] OSCILLATORY PEP 2020-10-20 19:00:59 Banerjee [facility] COVID-19 (SARS-COV-2) 2020-10-20 17:18:00 [facility]Des[facility]OM[facility] URINE CULTURE 2020-10-20 17:05:00 Yanet Gurrola [facility] XR ABDOMEN 1 VW PORTABLE 2020-10-20 15:36:17 Kevin Hernandez [facility] POC GLUCOSE SCREEN 2020-10-20 14:39:00 [facility]P 2020-10-20 13:00:15 Darryl Banerjee [place] o f [facility] PROTHROMBIN TIME 2020-10-20 09:17:[address] [facility] APTT 2020-10-20 09:17:00 Yuriy Parker [facility] HEPATIC FUNCTION PANEL 2020-10-20 09:17:00 Yuriy Parker [facility] COMPREHENSIVE METABOLIC 2020-10-20 09:17:00 Yuriy Parker [facility] PANEL [facility] MAGNESIUM LEVEL 2020-10-20 09:17:00 Yuriy Parker [facility] PHOSPHORUS LEVEL 2020-10-20 09:17:[address] [facility] LACTATE DEHYDROGENASE 2020-10-20 09:17:00 Yanet Gurrola [facility] FERRITIN LVL 2020-10-20 09:17:00 Yanet Gurrola [facility] COMPLETE BLOOD COUNT W/ 2020-10-20 09:17:00 Yanet Gurrola Uni versity [facility] DIFFERENTIAL [facility] TYPE AND SCREEN 2020-10-20 09:17:00 Yuriy Parker [facility] ALBUMIN LEVEL 2020-10-20 09:17:00 Yuriy Parker [facility] ALKALINE PHOSPHATASE 2020-10-20 09:17:00 [facility]uri[facility] ALANINE AMINOTRANSFERASE 2020-10-20 09:17:00 Yuriy Parker [facility] ASPARTATE AMINOTRANSFERASE 2020-10-20 09:17:00 Juan Parker [facility] TOTAL PROTEIN 2020-10-20 09:17:00 Yuriy Parker [facility] FRACTIONATED BILIRUBIN 2020-10-20 09:17:00 Yuriy Parker [facility] GLUCOSE LEVEL 2020-10-20 09:17:00 Yuriy Parker [facility] BLOOD UREA NITROGEN 2020-10-20 09:17:00 Yuriy Parker [facility] ELECTROLYTE PANEL 2020-10-20 09:17:00 Yuriy Parker [facility] SERUM CREATININE 2020-10-20 09:17:[address] [facility] .GLOMERULAR FILTRATION 2020-10-20 09:17:00 Yuriy Parker [facility] RATE [facility] CALCIUM LEVEL TOTAL 2020-10-20 09:17:00 Yuriy Parker [facility] Results CBC 2020-10-20 09:17:00 Yanet Gurrola [facility] MANUAL DIFFERENTIAL 2020-10-20 09:17:00 Yanet Gurrola [facility] ABORH 2020-10-20 09:17:00 Yuriy Parker [facility] ANTIBODY SCREEN 2020-10-20 09:17:00 Yuriy Parker [facility] CLOT EXPIRATION DATE 2020-10-20 09:17:00 [facility]uri[facility] TMP INTERPRETATION 2020-10-20 09:17:00 Yuriy Parker [facility] ANTIBODY SCREEN NEGATIVE MD [facility] POC GLUCOSE SCREEN 2020-10-20 09:10:00 Darryl Banerjee y [facility] OSCILLATORY PEP 2020-10-20 07:00:20 Darryl Banerjee [place] [facility] POC GLUCOSE SCREEN 2020-10-20 01:35:00 Darryl Banerjee [facility] OSCILLATORY PEP 2020-10-20 01:00:14 [facility]BDOMEN 1 VW PORTABLE 2020-10-19 22:38:50 Yanet Gurrol[facility] CHEST 1 VW 2020-10-19 22:37:03 Yanet Gurrola [facility] URINALYSIS MICROSCOPIC 2020-10-19 19:34:00 Yanet Gurrola [facility] URINALYSIS WITH 2020-10-19 19:34:00 [facility] MICROSCOPIC IF INDICATED [facility] POC GLUCOSE SCREEN 2020-10-19 19:16:00 Darryl Banerjee [facility] OSCILLATORY PEP 2020-10-19 19:00:55 Laovnne [facility] TRANSFUSE RED BLOOD CELLS 2020-10-19 18:35:00 Darryl [facility] FERRITIN LVL 2020-10-19 16:25:00 Yanet Gurrola [facility] LACTATE DEHYDROGENASE 2020-10-19 16:25:00 Yanet [facility]rola [facility] OSCILLATORY PEP 2020-10-19 13:00:17 [facility] POC GLUCOSE SCREEN 2020-10-19 12:23:00 Darryl Banerjee [facility] PREPARE RBC 2020-10-19 10:10:00 Lavonne [facility] PRBC PRODUCT READY FOR 2020-10-19 10:10:00 Darryl Banerjee [facility] ALL ROUND LOGGER [facility] BLOOD UREA NITROGEN 2020-10-19 09:25:00 Yuriy Parker [facility] ELECTROLYTE PANEL 2020-10-19 09:25:00 [facility]uriy Parker [facility] SERUM CREATININE 2020-10-19 09:25:[address] [facility] .GLOMERULAR FILTRATION 2020-10-19 09:25:00 Yuriy Parker [facility] RATE [facility] CALCIUM LEVEL TOTAL 2020-10-19 09:25:00 Yuriy Parker [facility] PROTHROMBIN TIME 2020-10-19 09:25:[address] [facility] APTT 2020-10-19 09:25:00 Yuriy Parker [facility] HEPATIC FUNCTION PANEL 2020-10-19 09:25:00 Yuriy Parker [facility] COMPLETE BLOOD COUNT W/ 2020-10-19 09:25:00 Yuriy Parker [facility] INDICES [facility] COMPREHENSIVE METABOLIC 2020-10-19 09:25:[address] [facility] MAGNESIUM LEVEL 2020-10-19 09:25:00 Yuriy Parker [facility] PHOSPHORUS LEVEL 2020-10-19 09:25:[address] [facility] LACTIC ACID, VENOUS 2020-10-19 09:25:00 Yuriy Parker [facility] ALBUMIN LEVEL 2020-10-19 09:25:00 Yuriy Parker [facility] ALKALINE PHOSPHATASE 2020-10-19 09:25:00 Yuriy Parker [facility] ALANINE AMINOTRANSFERASE 2020-10-19 09:25:00 Yuriy Parker [facility] ASPARTATE AMINOTRANSFERASE 2020-10-19 09:25:00 Juan Parker [facility] TOTAL PROTEIN 2020-10-19 09:25:00 Yuriy Parker [facility] FRACTIONATED BILIRUBIN 2020-10-19 09:25:00 Yuriy Parker [facility] GLUCOSE LEVEL 2020-10-19 09:25:00 Yuriy Parker [facility] POC GLUCOSE SCREEN 2020-10-19 06:20:00 Lavonne [facility] OSCILLATORY PEP 2020-10-19 01:00:15 Lavonne [facility] POC GLUCOSE SCREEN 2020-10-19 00:48:00 Lavonne [facility] VRE CULTURE 2020-10-18 21:11:00 Yuriy Parker [facility] POC GLUCOSE SCREEN 2020-10-18 17:19:00 Lavonne [facility] OSCILLATORY PEP 2020-10-18 13:00:10 Lavonne [facility] POC GLUCOSE SCREEN 2020-10-18 09:55:00 Lavonne [facility] PROTHROMBIN TIME 2020-10-18 09:09:[address] [facility] APTT 2020-10-18 09:09:00 Yuriy Parker [facility] HEPATIC FUNCTION PANEL 2020-10-18 09:09:00 Yuriy Parker [facility] COMPLETE BLOOD COUNT W/ 2020-10-18 09:09:00 Yuriy Parker [facility] COMPREHENSIVE METABOLIC 2020-10-18 09:09:[address] [facility] MAGNESIUM LEVEL 2020-10-18 09:09:00 Yuriy Parker [facility] PHOSPHORUS LEVEL 2020-10-18 09:09:[address] [facility] LACTIC ACID, VENOUS 2020-10-18 09:09:00 Yuriy Parker [facility] ALBUMIN LEVEL 2020-10-18 09:09:00 Yuriy Parker [facility] ALKALINE PHOSPHATASE 2020-10-18 09:09:00 [facility] ALANINE AMINOTRANSFERASE 2020-10-18 09:09:00 Yuriy Parker [facility] ASPARTATE AMINOTRANSFERASE 2020-10-18 09:09:00 Juan Parker E [facility] TOTAL PROTEIN 2020-10-18 09:09:00 Yuriy Parker [facility] FRACTIONATED BILIRUBIN 2020-10-18 09:09:00 Yuriy Parker [facility] GLUCOSE LEVEL 2020-10-18 09:09:00 Yuriy Parker [facility] BLOOD UREA NITROGEN 2020-10-18 09:09:00 Yuriy Parker [facility] ELECTROLYTE PANEL 2020-10-18 09:09:00 [facility] SERUM CREATININE 2020-10-18 09:09:[address] [facility] .GLOMERULAR FILTRATION 2020-10-18 09:09:00 Yuriy Parker [facility] RATE [facility] CALCIUM LEVEL TOTAL 2020-10-18 09:09:00 Yuriy Parker [facility] OSCILLATORY PEP 2020-10-18 07:00:21 [facility] GLUCOSE SCREEN 2020-10-18 01:41:00 [facility]SC[facility] PEP 2020-10-18 01:00:16 Bruno BanerjeeFormerly [facility] TRANSFUSE RED BLOOD CELLS 2020-10-17 21:05:00 Darryl Baner[facility] POC GLUCOSE SCREEN 2020-10-17 19:47:00 [facility] OSCILLATORY PEP 2020-10-17 19:00:47 Lavonne [facility] HEMODIALYSIS 2020-10-17 17:39:22 Edouard [facility] OSCILLATORY PEP 2020-10-17 16:31:51 Lavonne [facility] PREPARE RBC 2020-10-17 13:21:00 Lavonne [facility] PRBC PRODUCT READY FOR 2020-10-17 13:21:00 Darryl Banerjee [facility] ALL ROUND LOGGER [facility] POC GLUCOSE SCREEN 2020-10-17 12:14:00 Darryl Banerjee [facility] HEPATITIS B SURFACE 2020-10-17 09:16:00 Shraddha Nunn [facility] ANTIGEN, SERUM [facility] PROTHROMBIN TIME 2020-10-17 09:16:[address] [facility] APTT 2020-10-17 09:16:00 Yuriy Parker [facility] HEPATIC FUNCTION PANEL 2020-10-17 09:16:00 Yuriy Parker [facility] COMPLETE BLOOD COUNT W/ 2020-10-17 09:16:00 Yuriy Parker [facility] COMPREHENSIVE METABOLIC 2020-10-17 09:16:[address] [facility] MAGNESIUM LEVEL 2020-10-17 09:16:00 Yuriy Parker [facility] PHOSPHORUS LEVEL 2020-10-17 09:16:[address] [facility] LACTIC ACID, VENOUS 2020-10-17 09:16:00 Yuriy Parker [facility] TYPE AND SCREEN 2020-10-17 09:16:00 Yuriy Parker [facility] ALBUMIN LEVEL 2020-10-17 09:16:00 Yuriy Parker [facility] ALKALINE PHOSPHATASE 2020-10-17 09:16:00 Yuriy [facility] ALANINE AMINOTRANSFERASE 2020-10-17 09:16:00 Yuriy Parker [facility] ASPARTATE AMINOTRANSFERASE 2020-10-17 09:16:00 Juan Parker E [facility] TOTAL PROTEIN 2020-10-17 09:16:00 Yuriy Parker [facility] FRACTIONATED BILIRUBIN 2020-10-17 09:16:00 Yuriy Parker [facility] GLUCOSE LEVEL 2020-10-17 09:16:00 Yuriy Parker [facility] BLOOD UREA NITROGEN 2020-10-17 09:16:00 Yuriy Parker [facility] ELECTROLYTE PANEL 2020-10-17 09:16:00 [facility]uriy Parker [facility] SERUM CREATININE 2020-10-17 09:16:[address] [facility] .GLOMERULAR FILTRATION 2020-10-17 09:16:00 Yuriy Parker [facility] RATE [facility] CALCIUM LEVEL TOTAL 2020-10-17 09:16:00 Yuriy Parker Uni versity [facility] ABORH 2020-10-17 09:16:00 Yuriy Parker [facility] ANTIBODY SCREEN 2020-10-17 09:16:00 Yuriy Parker [facility] HEPATITIS B SURFACE AG 2020-10-17 09:16:00 Jose Carlos Burch [facility] W/CONFIRM [facility] TMP INTERPRETATION 2020-10-17 09:16:00 Yuriy Parker [facility] ANTIBODY SCREEN NEGATIVE MD Thompson [facility] CLOT EXPIRATION DATE 2020-10-17 09:16:00 Yuriy [facility] TMP CROSSMATCH 2020-10-17 09:16:00 Yuriy Parker [facility] INTERPRETATION [facility] POC GLUCOSE SCREEN 2020-10-17 05:59:00 [facility] POC GLUCOSE SCREEN 2020-10-16 23:06:00 [facility] POC GLUCOSE SCREEN 2020-10-16 18:39:00 Lavonne [facility] POC GLUCOSE SCREEN 2020-10-16 11:19:00 Darryl Banerjee [facility] PROTHROMBIN TIME 2020-10-16 09:10:00 Yuriy Parker [facility] APTT 2020-10-16 09:10:00 Yuriy Parker [facility] HEPATIC FUNCTION PANEL 2020-10-16 09:10:00 Yuriy Parker [facility] COMPLETE BLOOD COUNT W/ 2020-10-16 09:10:00 Yuriy Parker [facility] INDICES [facility] COMPREHENSIVE METABOLIC 2020-10-16 09:10:[address] [facility] MAGNESIUM LEVEL 2020-10-16 09:10:00 Yuriy Parker [facility] PHOSPHORUS LEVEL 2020-10-16 09:10:[address] [facility] LACTIC ACID, VENOUS 2020-10-16 09:10:00 Yuriy Parker [facility] ALBUMIN LEVEL 2020-10-16 09:10:00 Yuriy Parker [facility] ALKALINE PHOSPHATASE 2020-10-16 09:10:00 Yuriy [facility] ALANINE AMINOTRANSFERASE 2020-10-16 09:10:00 Yuriy Parker [facility] ASPARTATE AMINOTRANSFERASE 2020-10-16 09:10:00 Juan Parker E [facility] TOTAL PROTEIN 2020-10-16 09:10:00 Yuriy Parker [facility] FRACTIONATED BILIRUBIN 2020-10-16 09:10:00 Yuriy Parker [facility] GLUCOSE LEVEL 2020-10-16 09:10:00 Yuriy Parker [facility] BLOOD UREA NITROGEN 2020-10-16 09:10:00 Yuriy Parker [facility] ELECTROLYTE PANEL 2020-10-16 09:10:00 Yuriy Parker [facility] SERUM CREATININE 2020-10-16 09:10:[address] [facility] .GLOMERULAR FILTRATION 2020-10-16 09:10:00 Yuriy Parker [facility] RATE [facility] CALCIUM LEVEL TOTAL 2020-10-16 09:10:00 Yuriy Parker [facility] POC GLUCOSE SCREEN 2020-10-16 05:12:00 [facility]OC GLUCOSE SCREEN 2020-10-15 23:20:00 Darryl Banerjee [facility] POC GLUCOSE SCREEN 2020-10-15 17:52:00 [facility] URINALYSIS MICROSCOPIC 2020-10-15 16:58:00 Shraddha Nunn [facility] URINALYSIS WITH 2020-10-15 16:58:00 Lavonne [facility] MICROSCOPIC IF INDICATED [facility] XR CHEST 1 VW PORTABLE 2020-10-15 15:49:03 Mari Lovell [facility] POC GLUCOSE SCREEN 2020-10-15 11:26:00 Darryl Banerjee [facility] HEPATITIS B SURFACE 2020-10-15 09:44:00 [facility] ANTIGEN, SERUM [facility] PROTHROMBIN TIME 2020-10-15 09:44:[address] [facility] APTT 2020-10-15 09:44:00 Yuriy Parker [facility] HEPATIC FUNCTION PANEL 2020-10-15 09:44:00 Yuriy Parker [facility] COMPLETE BLOOD COUNT W/ 2020-10-15 09:44:00 Yuriy Parker [facility] INDICES [facility] COMPREHENSIVE METABOLIC 2020-10-15 09:44:00 Yuriy Parker [facility] PANEL [facility] MAGNESIUM LEVEL 2020-10-15 09:44:00 Yuriy Parker [facility] PHOSPHORUS LEVEL 2020-10-15 09:44:[address] [facility] LACTIC ACID, VENOUS 2020-10-15 09:44:00 Yuriy Parker [facility] ALBUMIN LEVEL 2020-10-15 09:44:00 Yuriy Parker [facility] ALKALINE PHOSPHATASE 2020-10-15 09:44:00 Yuriy Parker [facility] ALANINE AMINOTRANSFERASE 2020-10-15 09:44:00 Yuriy Parker [facility] ASPARTATE AMINOTRANSFERASE 2020-10-15 09:44:00 Juan Parker E [facility] TOTAL PROTEIN 2020-10-15 09:44:00 Yuriy Parker [facility] FRACTIONATED BILIRUBIN 2020-10-15 09:44:00 Yuriy Parker [facility] GLUCOSE LEVEL 2020-10-15 09:44:00 Yuriy Parker [facility] BLOOD UREA NITROGEN 2020-10-15 09:44:00 Yuriy Parker [facility] ELECTROLYTE PANEL 2020-10-15 09:44:00 Yuriy Parker [facility] SERUM CREATININE 2020-10-15 09:44:[address] [facility] .GLOMERULAR FILTRATION 2020-10-15 09:44:00 Yuriy Parker [facility] CALCIUM LEVEL TOTAL 2020-10-15 09:44:00 Yuriy Parker [facility] HEPATITIS B SURFACE AG 2020-10-15 09:44:00 Jose Carlos Burch [facility] W/[facility] POC GLUCOSE SCREEN 2020-10-15 04:42:00 [facility] 12-LEAD (PORTABLE) 2020-10-15 00:00:00 Mari Lovell [facility] POC GLUCOSE SCREEN 2020-10-14 23:03:00 Darryl Banerjee [facility] TRANSFUSE RED BLOOD CELLS 2020-10-14 20:15:00 Adolfo Portillo [facility] POC GLUCOSE SCREEN 2020-10-14 11:48:00 Darryl Banerjee [facility] POC GLUCOSE SCREEN 2020-10-14 11:28:00 Darryl Banerjee [facility] PREPARE RBC 2020-10-14 10:07:00 Adolfo Portillo [facility] PRBC PRODUCT READY FOR 2020-10-14 10:07:00 Darryl Banerjee [facility] ALL ROUND LOGGER [facility] PROTHROMBIN TIME 2020-10-14 09:11:[address] [facility] APTT 2020-10-14 09:11:00 Yuriy Parker [facility] HEPATIC FUNCTION PANEL 2020-10-14 09:11:00 Yuriy Parker [facility] COMPLETE BLOOD COUNT W/ 2020-10-14 09:11:00 Yuriy Parker [facility] INDICES [facility] COMPREHENSIVE METABOLIC 2020-10-14 09:11:00 Yuriy Parker [facility] PANEL [facility] MAGNESIUM LEVEL 2020-10-14 09:11:00 Yuriy Parker [facility] PHOSPHORUS LEVEL 2020-10-14 09:11:[address] [facility] LACTIC ACID, VENOUS 2020-10-14 09:11:00 Yuriy Parker [facility] TMP INTERPRETATION 2020-10-14 09:11:00 Yuriy Parker [facility] ANTIBODY SCREEN NEGATIVE MD Thompson [facility] ALBUMIN LEVEL 2020-10-14 09:11:00 Yuriy Parker [facility] ALKALINE PHOSPHATASE 2020-10-14 09:11:00 Yuriy Parker [facility] ALANINE AMINOTRANSFERASE 2020-10-14 09:11:00 Yuriy Parker [facility] ASPARTATE AMINOTRANSFERASE 2020-10-14 09:11:00 Juan Parker [facility] TOTAL PROTEIN 2020-10-14 09:11:[address] [facility] ity [facility] FRACTIONATED BILIRUBIN 2020-10-14 09:11:00 Yuriy Parker [facility] GLUCOSE LEVEL 2020-10-14 09:11:00 Yuriy Parker [facility] BLOOD UREA NITROGEN 2020-10-14 09:11:00 Yuriy Parker [facility] ELECTROLYTE PANEL 2020-10-14 09:11:00 [facility]y Parker [facility] SERUM CREATININE 2020-10-14 09:11:00 Yuriy Parker [facility] .GLOMERULAR FILTRATION 2020-10-14 09:11:00 Yuriy Parker [facility] CALCIUM LEVEL TOTAL 2020-10-14 09:11:00 Yuriy Parker [facility] ABORH 2020-10-14 09:11:[address] [facility] ity [facility] ANTIBODY SCREEN 2020-10-14 09:11:[address] [facility] CLOT EXPIRATION DATE 2020-10-14 09:11:00 Yuriy Parker Un iversity [facility] POC GLUCOSE SCREEN 2020-10-14 05:30:00 Darryl Banerjee [facility] POC GLUCOSE SCREEN 2020-10-13 22:56:00 [facility] POC GLUCOSE SCREEN 2020-10-13 17:18:00 [facility] COVID-19 (SARS-COV-2) 2020-10-13 16:11:00 [facility]OMATIC [facility] URINE CULTURE 2020-10-13 13:54:00 Shraddha Nunn [facility] POC GLUCOSE SCREEN 2020-10-13 11:13:00 Darryl Banerjee [facility] PROTHROMBIN TIME 2020-10-13 07:21:[address] [facility] APTT 2020-10-13 07:21:00 Yuriy Parker [facility] HEPATIC FUNCTION PANEL 2020-10-13 07:21:00 Yuriy Parker [facility] COMPLETE BLOOD COUNT W/ 2020-10-13 07:21:00 Yuriy Parker [facility] COMPREHENSIVE METABOLIC 2020-10-13 07:21:[address] [facility] MAGNESIUM LEVEL 2020-10-13 07:21:00 Yuryi Parker [facility] PHOSPHORUS LEVEL 2020-10-13 07:21:[address] [facility] LACTIC ACID, VENOUS 2020-10-13 07:21:00 Yuriy Parker [facility] ALBUMIN LEVEL 2020-10-13 07:21:00 Chano Willams [place] [facility] ALKALINE PHOSPHATASE 2020-10-13 07:21:00 ImerChano martinez [facility] ALANINE AMINOTRANSFERASE 2020-10-13 07:21:00 Chano Willams [facility] ASPARTATE AMINOTRANSFERASE 2020-10-13 07:21:00 Chano Willams [facility] TOTAL PROTEIN 2020-10-13 07:21:00 Chano Willams [place] f [facility] FRACTIONATED BILIRUBIN 2020-10-13 07:21:00 Chano Willams [facility] GLUCOSE LEVEL 2020-10-13 07:21:00 [facility]em [facility] BLOOD UREA NITROGEN 2020-10-13 07:21:00 Cem Horsham Clinicalvino [facility] ELECTROLYTE PANEL 2020-10-13 07:21:00 Cem Horsham Clinicalvino [facility] SERUM CREATININE 2020-10-13 07:21:00 Cem [facility] .GLOMERULAR FILTRATION 2020-10-13 07:21:[address] [facility] CALCIUM LEVEL TOTAL 2020-10-13 07:21:00 Cem Horsham Clinicalvino [facility] XR CHEST 1 VW PORTABLE 2020-10-13 07:17:52 Yuriy Parker [facility] POC GLUCOSE SCREEN 2020-10-13 04:57:00 Darryl Banerjee [facility] XR ABDOMEN 1 VW PORTABLE 2020-10-13 03:29:00 Kevin Hernandez [facility] POC GLUCOSE SCREEN 2020-10-12 22:53:00 Alba Puga [facility] POC GLUCOSE SCREEN 2020-10-12 16:45:00 Alba Puga [facility] LACTIC ACID, VENOUS 2020-10-12 13:24:00 Chano Willams [facility] POC GLUCOSE SCREEN 2020-10-12 10:59:00 Alba Puga [facility] ARTERIAL BLOOD GAS 2020-10-12 09:48:00 [facility] X[facility] CHEST 1 VW PORTABLE 2020-10-12 06:38:14 Yuriy Parker [facility] LACTIC ACID, VENOUS 2020-10-12 06:28:00 [facility] PROT[facility]OMBIN TIME 2020-10-12 06:28:[address] [facility] APTT 2020-10-12 06:28:00 Yuriy Parker [facility] HEPATIC FUNCTION PANEL 2020-10-12 06:28:00 Yuriy Parker [facility] COMPLETE BLOOD COUNT W/ 2020-10-12 06:28:00 Yuriy Parker [facility] VANCOMYCIN LEVEL RANDOM 2020-10-12 06:28:00 Gerardo Krishnan [facility] COMPREHENSIVE METABOLIC 2020-10-12 06:28:[address] [facility] MAGNESIUM LEVEL 2020-10-12 06:28:00 Yuriy Parker [facility] PHOSPHORUS LEVEL 2020-10-12 06:28:[address] [facility] ALBUMIN LEVEL 2020-10-12 06:28:00 Chano Willams o f [facility] ALKALINE PHOSPHATASE 2020-10-12 06:28:00 Chano Willams [facility] ALANINE AMINOTRANSFERASE 2020-10-12 06:28:00 Chano Willams Uni [facility] ASPARTATE AMINOTRANSFERASE 2020-10-12 06:28:00 Chano Willams [facility] TOTAL PROTEIN 2020-10-12 06:28:00 Chano Willams [place] f [facility] FRACTIONATED BILIRUBIN 2020-10-12 06:28:00 Chano Willams [facility] GLUCOSE LEVEL 2020-10-12 06:28:00 Cem [facility] BLOOD UREA NITROGEN 2020-10-12 06:28:00 Cem Horsham Clinicalvino [facility] ELECTROLYTE PANEL 2020-10-12 06:28:00 Cem [facility] SERUM CREATININE 2020-10-12 06:28:00 Cem [facility] .GLOMERULAR FILTRATION 2020-10-12 06:28:00 Robyn Priest [facility] RATE [facility] CALCIUM LEVEL TOTAL 2020-10-12 06:28:00 Cem Horsham Clinicalvino [facility] POC GLUCOSE SCREEN 2020-10-12 05:23:00 Alba Puga [facility] TRANSFUSE RED BLOOD CELLS 2020-10-12 01:40:00 Breezy Kiara [facility] LACTIC ACID, VENOUS 2020-10-11 23:06:[address] [facility] POC GLUCOSE SCREEN 2020-10-11 22:21:00 Alba Puga [facility] PREPARE RBC 2020-10-11 20:51:00 Kiara Patel [facility] PRBC PRODUCT READY FOR 2020-10-11 20:51:00 [facility] COMPLETE BLOOD COUNT W/ 2020-10-11 20:28:00 Kiara Patel [facility] DIFFERENTIAL [facility] URINALYSIS WITH 2020-10-11 20:28:00 Shraddha Nunn [place] MICROSCOPIC IF INDICATED MD [facility] NT PRO BNP 2020-10-11 20:28:[address] [facility] Results CBC 2020-10-11 20:28:00 [facility] MANUAL DIFFERENTIAL 2020-10-11 20:28:00 Kiara Patel [facility] URINALYSIS MICROSCOPIC 2020-10-11 20:28:00 Timothy Torres [facility] POC GLUCOSE SCREEN 2020-10-11 16:45:00 Alba Puga [facility] LACTIC ACID, VENOUS 2020-10-11 14:11:[address] [facility] TYPE AND SCREEN 2020-10-11 11:31:00 Yuriy Parker [facility] ABORH 2020-10-11 11:31:[address] [facility] ANTIBODY SCREEN 2020-10-11 11:31:[address] [facility] CLOT EXPIRATION DATE 2020-10-11 11:31:00 Karyn [facility] TMP INTERPRETATION 2020-10-11 11:31:00 Karyn Andre [facility] ANTIBODY SCREEN NEGATIVE MD Thompson [facility] [place] TMP CROSSMATCH 2020-10-11 11:31:00 Karyn Andre [facility] INTERPRETATION [facility] POC GLUCOSE SCREEN 2020-10-11 10:30:00 Alba Puga [facility] [place] XR CHEST 1 VW PORTABLE 2020-10-11 06:30:57 Yuriy Parker [facility] LACTIC ACID, VENOUS 2020-10-11 06:29:[address] [facility] PROTHROMBIN TIME 2020-10-11 06:29:[address] [facility] APTT 2020-10-11 06:29:00 Yuriy Parker [facility] HEPATIC FUNCTION PANEL 2020-10-11 06:29:00 Yuriy Parker [facility] COMPLETE BLOOD COUNT W/ 2020-10-11 06:29:00 Yuriy Parker [facility] INDICES [facility] COMPREHENSIVE METABOLIC 2020-10-11 06:29:[address] [facility] MAGNESIUM LEVEL 2020-10-11 06:29:00 Yuriy Parker [facility] PHOSPHORUS LEVEL 2020-10-11 06:29:[address] [facility] ALBUMIN LEVEL 2020-10-11 06:29:00 Chano Willams [facility] ALKALINE PHOSPHATASE 2020-10-11 06:29:00 Chano Willams [facility] ALANINE AMINOTRANSFERASE 2020-10-11 06:29:00 Chano Willams [facility] ASPARTATE AMINOTRANSFERASE 2020-10-11 06:29:00 Chano Willams [facility] TOTAL PROTEIN 2020-10-11 06:29:00 Chano Willams [facility] FRACTIONATED BILIRUBIN 2020-10-11 06:29:00 Chano Willams [facility] GLUCOSE LEVEL 2020-10-11 06:29:00 Cem Horsham Clinicalvino [facility] BLOOD UREA NITROGEN 2020-10-11 06:29:00 Robyn Priest [facility] ELECTROLYTE PANEL 2020-10-11 06:29:00 [facility] SERUM CREATININE 2020-10-11 06:29:00 Cem Robyn [facility] .GLOMERULAR FILTRATION 2020-10-11 06:29:00 Robyn Priest [facility] RATE [facility] CALCIUM LEVEL TOTAL 2020-10-11 06:29:00 Robyn Priest [facility] ARTERIAL BLOOD GAS 2020-10-11 06:29:00 Bailey Marshall [facility] POC GLUCOSE SCREEN 2020-10-11 04:48:00 Alba Puga [facility] POC GLUCOSE SCREEN 2020-10-10 23:30:00 Alba Puga [facility] XR CHEST 1 VW POST IMPLANT 2020-10-10 20:06:00 Alba Puga [facility] POC GLUCOSE SCREEN 2020-10-10 16:51:00 Alba Puga [facility] LACTIC ACID, VENOUS 2020-10-10 15:01:00 [facility] P[facility] GLUCOSE SCREEN 2020-10-10 10:59:00 Alba Puga [facility] XR CHEST 1 VW PORTABLE 2020-10-10 06:41:13 Yuriy Parker [facility] GENERAL LABORATORY ADD ON 2020-10-10 06:37:00 Robyn Priest [facility] TEST [facility] PROTHROMBIN TIME 2020-10-10 06:31:00 [facility] AP[facility] 2020-10-10 06:31:00 Yuriy Parker [facility] HEPATIC FUNCTION PANEL 2020-10-10 06:31:00 Yuriy Parker [facility] COMPLETE BLOOD COUNT W/ 2020-10-10 06:31:00 Yuriy Parker [facility] INDICES [facility] ALBUMIN LEVEL 2020-10-10 06:31:00 Chano Willams [place] [facility] ALKALINE PHOSPHATASE 2020-10-10 06:31:00 Chano Willams [facility] ALANINE AMINOTRANSFERASE 2020-10-10 06:31:00 [facility] ASPARTATE AMINOTRANSFERASE 2020-10-10 06:31:00 [facility]ano [facility] TOTAL PROTEIN 2020-10-10 06:31:00 Chano Willams [place] [facility] FRACTIONATED BILIRUBIN 2020-10-10 06:31:00 Chano Willams [facility] PHOSPHORUS LEVEL 2020-10-10 06:31:00 Chano Willams [facility] MAGNESIUM LEVEL 2020-10-10 06:31:00 Chano Willams [facility] GLUCOSE LEVEL 2020-10-10 06:31:00 Chano Willams [facility] BLOOD UREA NITROGEN 2020-10-10 06:31:[address] [facility] ELECTROLYTE PANEL 2020-10-10 06:31:00 Imer Chano [facility] SERUM CREATININE 2020-10-10 06:31:00 Imer Cahno [facility] .GLOMERULAR FILTRATION 2020-10-10 06:31:[address] [facility] CALCIUM LEVEL TOTAL 2020-10-10 06:31:00 Chano Willams [facility] [place] LACTIC ACID, VENOUS 2020-10-10 06:29:[address] [facility] POC GLUCOSE SCREEN 2020-10-10 04:47:00 Alba Puga [facility] POC GLUCOSE SCREEN 2020-10-09 22:49:00 Alba Puga [facility] POC GLUCOSE SCREEN 2020-10-09 16:12:00 Alba Puga [facility] XR ABDOMEN 1 VW PORTABLE 2020-10-09 14:33:45 Kiara Patel [facility] LACTIC ACID, VENOUS 2020-10-09 13:38:[address] [facility] BASIC METABOLIC PANEL, 2020-10-09 13:38:00 Beau Reina [facility] CALCIUM IONIZED [facility] APTT 2020-10-09 13:38:00 Latosha Beau [facility] PROTHROMBIN TIME 2020-10-09 13:38:00 Latosha [facility] MAGNESIUM LEVEL 2020-10-09 13:38:00 Latosha Beau [facility] PHOSPHORUS LEVEL 2020-10-09 13:38:00 Latosha [facility] GLUCOSE LEVEL 2020-10-09 13:38:00 Beau Reina [facility] BLOOD UREA NITROGEN 2020-10-09 13:38:[address] [facility] ELECTROLYTE PANEL 2020-10-09 13:38:00 Latosha [facility] SERUM CREATININE 2020-10-09 13:38:00 Latosha [facility] .GLOMERULAR FILTRATION 2020-10-09 13:38:[address] [facility] CALCIUM IONIZED, VENOUS 2020-10-09 13:38:00 Beau Reina [facility] POC GLUCOSE SCREEN 2020-10-09 10:28:00 Alba Puga [facility] TRANSFUSE RED BLOOD CELLS 2020-10-09 10:15:00 Robyn Priest [facility] PREPARE RBC 2020-10-09 08:56:00 Robyn Priest [facility] PRBC PRODUCT READY FOR 2020-10-09 08:56:00 Alba Puga [facility] ALL ROUND LOGGER [facility] XR CHEST 1 VW PORTABLE 2020-10-09 08:24:00 Yuriy Parker [facility] LACTIC ACID, VENOUS 2020-10-09 07:36:[address] [facility] HEPATITIS B SURFACE 2020-10-09 07:36:00 Shraddha Nunn [facility] ANTIGEN, SERUM [facility] PROTHROMBIN TIME 2020-10-09 07:36:[address] [facility] APTT 2020-10-09 07:36:00 Yuriy Parker [facility] HEPATIC FUNCTION PANEL 2020-10-09 07:36:00 Yuriy Parker [facility] COMPLETE BLOOD COUNT W/ 2020-10-09 07:36:00 Yuriy Parker [facility] VANCOMYCIN LEVEL RANDOM 2020-10-09 07:36:00 Sudheer Wilson [facility] ALBUMIN LEVEL 2020-10-09 07:36:00 Chano Willams [place] [facility] ALKALINE PHOSPHATASE 2020-10-09 07:36:00 Chano Willams [facility] ALANINE AMINOTRANSFERASE 2020-10-09 07:36:00 Chano Willams [facility] ASPARTATE AMINOTRANSFERASE 2020-10-09 07:36:00 Chano Willams [facility] TOTAL PROTEIN 2020-10-09 07:36:00 Chano Willams o [facility] FRACTIONATED BILIRUBIN 2020-10-09 07:36:00 [facility] HEPATITIS B SURFACE AG 2020-10-09 07:36:00 Cory Hickman [facility] W/CONFIRM [facility] POC GLUCOSE SCREEN 2020-10-09 04:28:00 Alba Puga rsity of [facility] Center POC GLUCOSE SCREEN 2020 22:30:00 [facility] LACTIC ACID, VENOUS 2020 20:18:[address] [facility] MRSA SCREENING CULTURE 2020 17:27:00 [facility] POC GLUCOSE SCREEN 2020 16:26:00 Alba Puga rsity of [facility] BLOODCULTURE 2020 15:21:00 Beau Reina [facility] URINE CULTURE 2020 15:21:00 Beau Reina [facility] BLOODCULTURE 2020 15:21:00 Latosha Beau [facility] TYPE AND SCREEN 2020 13:19:00 Yuriy Parker [facility] LACTIC ACID, VENOUS 2020 13:19:[address] [facility] BASIC METABOLIC PANEL, 2020 13:19:00 Shraddha Nunn [facility] CALCIUM IONIZED [facility] CALCIUM LEVEL TOTAL 2020 13:19:[address] [facility] PHOSPHORUS LEVEL 2020 13:19:00 Edouard [facility] MAGNESIUM LEVEL 2020 13:19:00 Shraddha Nunn [facility] ARTERIAL BLOOD GAS 2020 13:19:00 [facility] [place] [facility]H 2020 13:19:00 Karyn Andre [facility] ANTIBODY SCREEN 2020 13:19:[address] [facility] CALCIUM IONIZED, VENOUS 2020 13:19:00 Rigo Orantes [facility] GLUCOSE LEVEL 2020 13:19:00 Rigo Orantes [facility] BLOOD UREA NITROGEN 2020 13:19:00 Rigo Orantes [facility] ELECTROLYTE PANEL 2020 13:19:00 Rigo Orantes [facility] SERUM CREATININE 2020 13:19:[address] [facility] .GLOMERULAR FILTRATION 2020 13:19:00 Rigo Orantes [facility] RATE [facility] COMPLETE BLOOD COUNT W/ 2020 13:19:00 Beau Reina [facility] DIFFERENTIAL [facility] Results CBC 2020 13:19:00 Beau Reina [place] f [facility] MANUAL DIFFERENTIAL 2020 13:19:[address] [facility] TMP INTERPRETATION 2020 13:19:00 Karyn Andre [facility] ANTIBODY SCREEN NEGATIVE [facility] CLOT EXPIRATION DATE 2020 13:19:00 Karyn Andre [facility] TMP CROSSMATCH 2020 13:19:00 Karyn Andre [facility] INTERPRETATION [facility] POC GLUCOSE SCREEN 2020 11:00:00 [facility] XR CHEST 1 VW PORTABLE 2020 09:07:05 Yuriy Parker [facility] POC GLUCOSE SCREEN 2020 07:33:00 [facility] LACTIC ACID, VENOUS 2020 05:52:[address] [facility] BASIC METABOLIC PANEL, 2020 05:52:00 Edouard Shraddha [facility] CALCIUM IONIZED [facility] CALCIUM LEVEL TOTAL 2020 05:52:00 Edouard [facility] PHOSPHORUS LEVEL 2020 05:52:00 Edouard, [facility] MAGNESIUM LEVEL 2020 05:52:00 Edouard [facility] o f [facility] ARTERIAL BLOOD GAS 2020 05:52:[address] [facility] PROTHROMBIN TIME 2020 05:52:[address] [facility] APTT 2020 05:52:00 Yuriy Parker [facility] HEPATIC FUNCTION PANEL 2020 05:52:00 Yuriy Parker [facility] COMPLETE BLOOD COUNT W/ 2020 05:52:00 Yuriy Parker [facility] CALCIUM IONIZED, VENOUS 2020 05:52:00 Rigo Orantes [facility] GLUCOSE LEVEL 2020 05:52:00 Rigo Orantes [facility] BLOOD UREA NITROGEN 2020 05:52:00 Rigo Orantes [facility] ELECTROLYTE PANEL 2020 05:52:00 Rigo Orantes [facility] SERUM CREATININE 2020 05:52:[address] [facility] .GLOMERULAR FILTRATION 2020 05:52:00 Rigo Orantes [facility] ALBUMIN LEVEL 2020 05:52:00 Chano Willams o f [facility] Center ALKALINE PHOSPHATASE 2020 05:52:00 Chano Willams ity of [facility] ALANINE AMINOTRANSFERASE 2020 05:52:00 Chano Willams Uni versity of [facility] ASPARTATE AMINOTRANSFERASE 2020 05:52:00 Chano Willams [facility] TOTAL PROTEIN 2020 05:52:00 Chano Willams o f [facility] FRACTIONATED BILIRUBIN 2020 05:52:00 Chano Willams [facility] Center POC GLUCOSE SCREEN 2020 04:57:00 Alba [address] [facility] of [facility] Center POC GLUCOSE SCREEN 2020 03:20:00 [facility] Center POC GLUCOSE SCREEN 2020 02:13:00 Alba Puga [facility] Center POC GLUCOSE SCREEN 2020 01:05:00 Alba Puga [facility] Center POC GLUCOSE SCREEN 2020-10-07 23:26:00 Alba Puga [facility] Center POC GLUCOSE SCREEN 2020-10-07 22:20:00 Alba Puga [facility] Center LACTIC ACID, VENOUS 2020-10-07 20:37:00 Chano Willams [facility] BASIC METABOLIC PANEL, 2020-10-07 20:37:00 Shraddha Nunn [facility] CALCIUM IONIZED [facility] CALCIUM LEVEL TOTAL 2020-10-07 20:37:00 Shraddha Nunn [facility] PHOSPHORUS LEVEL 2020-10-07 20:37:00 Edouard [facility] MAGNESIUM LEVEL 2020-10-07 20:37:00 Shraddha Nunn o f [facility] ARTERIAL BLOOD GAS 2020-10-07 20:37:00 Shraddha Nunnit y of [facility] CALCIUM IONIZED, VENOUS 2020-10-07 20:37:00 Rigo Orantes [facility] GLUCOSE LEVEL 2020-10-07 20:37:[address] [facility] ity [facility] BLOOD UREA NITROGEN 2020-10-07 20:37:00 Rigo [facility]antes [facility] ELECTROLYTE PANEL 2020-10-07 20:37:00 Rigo [facility]antes [facility] SERUM CREATININE 2020-10-07 20:37:00 Rigo Orantes Univer sity [facility] .GLOMERULAR FILTRATION 2020-10-07 20:37:00 Rigo Orantes [facility] POC GLUCOSE SCREEN 2020-10-07 20:24:00 Alba Puga [facility] POC GLUCOSE SCREEN 2020-10-07 19:40:00 Alba Puga [facility] POC GLUCOSE SCREEN 2020-10-07 18:34:00 Alba Puga [facility] POC GLUCOSE SCREEN 2020-10-07 16:24:00 Alba Puga [facility] OSCILLATORY PEP 2020-10-07 15:47:[address] [facility] POC GLUCOSE SCREEN 2020-10-07 14:23:00 Alba Puga Univlarissa [facility] LACTIC ACID, VENOUS 2020-10-07 13:35:00 Chano Willams [facility] ty [facility] BASIC METABOLIC PANEL, 2020-10-07 13:35:00 [facility]ED [facility] CALCIUM LEVEL TOTAL 2020-10-07 13:35:00 [facility] PHOSPHORUS LEVEL 2020-10-07 13:35:00 Edouard [facility] MAGNESIUM LEVEL 2020-10-07 13:35:00 Edouard [facility] o f [facility] ARTERIAL BLOOD GAS 2020-10-07 13:35:00 Edouard [facility] y [facility] CALCIUM IONIZED, VENOUS 2020-10-07 13:35:00 Rigo Orantes [facility] GLUCOSE LEVEL 2020-10-07 13:35:00 Rigo Orantes [facility] BLOOD UREA NITROGEN 2020-10-07 13:35:00 Rigo Orantes [facility] ELECTROLYTE PANEL 2020-10-07 13:35:00 Rigo Orantes [facility] SERUM CREATININE 2020-10-07 13:35:00 Rigo Oranteser sity [facility] .GLOMERULAR FILTRATION 2020-10-07 13:35:00 Rigo Orantes [facility] POC GLUCOSE SCREEN 2020-10-07 12:18:00 Alba [facility] X[facility] CHEST 1 VW PORTABLE 2020-10-07 10:53:00 Yuriy Parker [facility] POC GLUCOSE SCREEN 2020-10-07 10:41:00 Alba [facility] POC GLUCOSE SCREEN 2020-10-07 09:23:00 Alba [facility] POC GLUCOSE SCREEN 2020-10-07 08:41:00 Alba [facility] POC GLUCOSE SCREEN 2020-10-07 07:21:00 Alba Puga [facility] LACTIC ACID, VENOUS 2020-10-07 05:53:[address] [facility] BASIC METABOLIC PANEL, 2020-10-07 05:53:00 Shraddha Nunn [facility] CALCIUM IONIZED [facility] CALCIUM LEVEL TOTAL 2020-10-07 05:53:00 Edouard [facility] PHOSPHORUS LEVEL 2020-10-07 05:53:00 Edouard, [facility] MAGNESIUM LEVEL 2020-10-07 05:53:00 Edouard [facility] o f [facility] ARTERIAL BLOOD GAS 2020-10-07 05:53:[address] [facility] PROTHROMBIN TIME 2020-10-07 05:53:[address] [facility] APTT 2020-10-07 05:53:00 Yuriy Parker [facility] HEPATIC FUNCTION PANEL 2020-10-07 05:53:00 Yuriy Parker [facility] COMPLETE BLOOD COUNT W/ 2020-10-07 05:53:00 Yuriy Parker [facility] CALCIUM IONIZED, VENOUS 2020-10-07 05:53:00 Rigo Orantes [facility] GLUCOSE LEVEL 2020-10-07 05:53:00 Rigo Orantes [facility] BLOOD UREA NITROGEN 2020-10-07 05:53:00 Rigo Orantes [facility] ELECTROLYTE PANEL 2020-10-07 05:53:00 Rigo Orantes [facility] SERUM CREATININE 2020-10-07 05:53:[address] [facility] .GLOMERULAR FILTRATION 2020-10-07 05:53:00 Rigo Orantes [facility] ALBUMIN LEVEL 2020-10-07 05:53:00 Chano Willams [place] o f [facility] ALKALINE PHOSPHATASE 2020-10-07 05:53:00 Chano Willams ity [facility] ALANINE AMINOTRANSFERASE 2020-10-07 05:53:00 Chano Willams Uni versity of [facility] ASPARTATE AMINOTRANSFERASE 2020-10-07 05:53:00 Chano Willams [facility] TOTAL PROTEIN 2020-10-07 05:53:00 Chano Willams o f [facility] FRACTIONATED BILIRUBIN 2020-10-07 05:53:00 Chano Willams [facility] POC GLUCOSE SCREEN 2020-10-07 04:56:00 Alba Puga [facility] POC GLUCOSE SCREEN 2020-10-07 03:04:00 Alba Puga [facility] POC GLUCOSE SCREEN 2020-10-07 02:05:00 Alba Puga [facility] POC GLUCOSE SCREEN 2020-10-07 00:58:00 Alba Puga [facility] POC GLUCOSE SCREEN 2020-10-06 22:56:00 Alba Puga [facility] of [facility] LACTIC ACID, VENOUS 2020-10-06 21:52:[address] [facility] BASIC METABOLIC PANEL, 2020-10-06 21:52:00 Shraddha Nunn [facility] CALCIUM IONIZED [facility] CALCIUM LEVEL TOTAL 2020-10-06 21:52:[address] [facility] PHOSPHORUS LEVEL 2020-10-06 21:52:00 Shraddha Nunn [facility] MAGNESIUM LEVEL 2020-10-06 21:52:00 Shraddha Nunn [place] o f [facility] ARTERIAL BLOOD GAS 2020-10-06 21:52:00 Shraddha Nunn [facility] CALCIUM IONIZED, VENOUS 2020-10-06 21:52:00 Rigo Orantes [facility] GLUCOSE LEVEL 2020-10-06 21:52:00 Rigo Orantes [facility] BLOOD UREA NITROGEN 2020-10-06 21:52:00 Rigo Orantes [facility] ELECTROLYTE PANEL 2020-10-06 21:52:00 Rigo Orantes [facility] SERUM CREATININE 2020-10-06 21:52:[address] [facility] .GLOMERULAR FILTRATION 2020-10-06 21:52:00 Rigo Orantes [facility] POC GLUCOSE SCREEN 2020-10-06 21:00:00 Alba P[facility] POC GLUCOSE SCREEN 2020-10-06 19:58:00 Alba Puga Unive rsity [facility] POC GLUCOSE SCREEN 2020-10-06 19:21:00 Alba P[facility] POC GLUCOSE SCREEN 2020-10-06 17:40:00 Alba Puga Unive rsity [facility] POC GLUCOSE SCREEN 2020-10-06 16:14:00 Alba Puga Unive rsity [facility] COVID-19 (SARS-COV-2) 2020-10-06 15:33:00 Randolph Payne sitshayne of [facility] POC GLUCOSE SCREEN 2020-10-06 14:33:00 Alba Puga Unive rsity [facility] LACTIC ACID, VENOUS 2020-10-06 13:46:00 Chano Willams [facility] BASIC METABOLIC PANEL, 2020-10-06 13:46:00 Sen, Shraddha [facility] CALCIUM IONIZED [facility] CALCIUM LEVEL TOTAL 2020-10-06 13:46:00 Edouard [facility] PHOSPHORUS LEVEL 2020-10-06 13:46:00 Edouard [facility] MAGNESIUM LEVEL 2020-10-06 13:46:00 Edouard [facility] o f [facility] ARTERIAL BLOOD GAS 2020-10-06 13:46:[address] [facility] CALCIUM IONIZED, VENOUS 2020-10-06 13:46:00 Rigo Orantes [facility] GLUCOSE LEVEL 2020-10-06 13:46:00 Rigo Orantes [facility] BLOOD UREA NITROGEN 2020-10-06 13:46:00 Rigo Orantes [facility] ELECTROLYTE PANEL 2020-10-06 13:46:00 Rigo Orantes [facility] SERUM CREATININE 2020-10-06 13:46:[address] [facility] .GLOMERULAR FILTRATION 2020-10-06 13:46:00 Rigo Orantes [facility] RATE [facility] TRANSFUSE RED BLOOD CELLS 2020-10-06 12:40:00 Migdalia Kruger [facility] POC GLUCOSE SCREEN 2020-10-06 12:31:00 Alba Puga [facility] POC GLUCOSE SCREEN 2020-10-06 10:28:00 Randolph Payne [facility] POC GLUCOSE SCREEN 2020-10-06 08:35:00 Randolph Payne [facility] XR CHEST 1 VW PORTABLE 2020-10-06 08:17:51 Yuriy Parker [facility] PREPARE RBC 2020-10-06 08:12:00 Migdalia Kruger [facility] PRBC PRODUCT READY FOR 2020-10-06 08:12:00 Randolph Payne [facility] ALL ROUND LOGGER [facility] POC GLUCOSE SCREEN 2020-10-06 06:34:00 Randolph Payne [facility] LACTIC ACID, VENOUS 2020-10-06 06:05:[address] [facility] BASIC METABOLIC PANEL, 2020-10-06 06:05:00 Shraddha Nunn [facility] CALCIUM IONIZED [facility] CALCIUM LEVEL TOTAL 2020-10-06 06:05:00 Edouard [facility] PHOSPHORUS LEVEL 2020-10-06 06:05:00 Edouard [facility] MAGNESIUM LEVEL 2020-10-06 06:05:00 Edouard [facility] o f [facility] ARTERIAL BLOOD GAS 2020-10-06 06:05:[address] [facility] PROTHROMBIN TIME 2020-10-06 06:05:[address] [facility] APTT 2020-10-06 06:05:00 Yuriy Parker [facility] HEPATIC FUNCTION PANEL 2020-10-06 06:05:00 Yuriy Parker [facility] COMPLETE BLOOD COUNT W/ 2020-10-06 06:05:00 Yuriy Parker [facility] CALCIUM IONIZED, VENOUS 2020-10-06 06:05:00 Rigo Orantes [facility] GLUCOSE LEVEL 2020-10-06 06:05:00 Rigo Orantes [facility] BLOOD UREA NITROGEN 2020-10-06 06:05:00 Rigo Orantes [facility] ELECTROLYTE PANEL 2020-10-06 06:05:00 Rigo Orantes [facility] [place] SERUM CREATININE 2020-10-06 06:05:[address] [facility] .GLOMERULAR FILTRATION 2020-10-06 06:05:00 Rigo Orantes [facility] ALBUMIN LEVEL 2020-10-06 06:05:00 Chano Willams [facility] ALKALINE PHOSPHATASE 2020-10-06 06:05:00 Chano Willams [facility] ALANINE AMINOTRANSFERASE 2020-10-06 06:05:00 Chano Willams [facility] ASPARTATE AMINOTRANSFERASE 2020-10-06 06:05:00 Chano Willams [facility] TOTAL PROTEIN 2020-10-06 06:05:00 Chano Willams [facility] [place] FRACTIONATED BILIRUBIN 2020-10-06 06:05:00 Chano Willams [facility] Center POC GLUCOSE SCREEN 2020-10-06 04:40:00 Randolph Payne [facility] Center POC GLUCOSE SCREEN 2020-10-06 03:36:00 Randolph Payne [facility] POC GLUCOSE SCREEN 2020-10-06 02:23:00 Randolph Payne [facility] POC GLUCOSE SCREEN 2020-10-06 01:31:00 Randolph Payne E [facility] POC GLUCOSE SCREEN 2020-10-06 00:09:00 Randolph Payne [facility] POC GLUCOSE SCREEN 2020-10-05 23:21:00 Randolph Payne E [facility] POC GLUCOSE SCREEN 2020-10-05 22:15:00 Randolph Payne E [facility] LACTIC ACID, VENOUS 2020-10-05 21:09:[address] [facility] BASIC METABOLIC PANEL, 2020-10-05 21:09:00 Shraddha Nunn [facility] CALCIUM IONIZED [facility] CALCIUM LEVEL TOTAL 2020-10-05 21:09:00 Edouard [facility] PHOSPHORUS LEVEL 2020-10-05 21:09:00 Edouard [facility] MAGNESIUM LEVEL 2020-10-05 21:09:00 Edouard [facility] o f [facility] ARTERIAL BLOOD GAS 2020-10-05 21:09:[address] [facility] CALCIUM IONIZED, VENOUS 2020-10-05 21:09:00 Rigo Orantes [facility] GLUCOSE LEVEL 2020-10-05 21:09:00 Rigo Orantes [facility] BLOOD UREA NITROGEN 2020-10-05 21:09:00 Rigo Orantes [facility] ELECTROLYTE PANEL 2020-10-05 21:09:00 [facility] SERUM CREATININE 2020-10-05 21:09:00 [facility] .GLOMERULAR FILTRATION 2020-10-05 21:09:00 Rigo Orantes [facility] POC GLUCOSE SCREEN 2020-10-05 20:28:00 Randolph Payne [facility] Center POC GLUCOSE SCREEN 2020-10-05 19:20:00 Randolph Payne [facility] er Center POC GLUCOSE SCREEN 2020-10-05 18:05:[address] [facility] POC GLUCOSE SCREEN 2020-10-05 16:37:00 Randolph Payne [facility] Center LACTIC ACID, VENOUS 2020-10-05 13:48:[address] [facility] BASIC METABOLIC PANEL, 2020-10-05 13:48:00 Shraddha Nunn [facility] CALCIUM IONIZED [facility] CALCIUM LEVEL TOTAL 2020-10-05 13:48:00 Edouard [facility] PHOSPHORUS LEVEL 2020-10-05 13:48:00 Edouard, [facility] MAGNESIUM LEVEL 2020-10-05 13:48:00 Edouard [facility] ARTERIAL BLOOD GAS 2020-10-05 13:48:00 Edouard, [facility] CALCIUM IONIZED, VENOUS 2020-10-05 13:48:00 Rigo Orantes [facility] GLUCOSE LEVEL 2020-10-05 13:48:00 Rigo Orantes [facility] BLOOD UREA NITROGEN 2020-10-05 13:48:00 Rigo Orantes [facility] ELECTROLYTE PANEL 2020-10-05 13:48:00 Rigo Orantes [facility] SERUM CREATININE 2020-10-05 13:48:00 Rigo Orantes [facility] sity [facility] .GLOMERULAR FILTRATION 2020-10-05 13:48:00 Rigo Orantes [facility] POC GLUCOSE SCREEN 2020-10-05 10:58:00 Randolph Payne [facility] BASIC METABOLIC PANEL, 2020-10-05 09:55:00 Bailey Marshall [facility] CALCIUM IONIZED [facility] MAGNESIUM LEVEL 2020-10-05 09:55:00 Bailey Marshall [facility] PHOSPHORUS LEVEL 2020-10-05 09:55:00 Bailey Marshall [facility] GLUCOSE LEVEL 2020-10-05 09:55:00 Bailey Marshall [facility] BLOOD UREA NITROGEN 2020-10-05 09:55:00 [facility] ELECTROLYTE PANEL 2020-10-05 09:55:[address] [facility] SERUM CREATININE 2020-10-05 09:55:[address] .GLOMERULAR FILTRATION 2020-10-05 09:55:00 Bailey Marshall [facility] CALCIUM IONIZED, VENOUS 2020-10-05 09:55:00 Bailey Marshall [facility] X[facility] CHEST 1 VW PORTABLE 2020-10-05 08:47:48 Yuriy Parker [facility] TYPE AND SCREEN 2020-10-05 08:40:00 Yuriy Parker [facility] ABORH 2020-10-05 08:40:[address] [facility] ANTIBODY SCREEN 2020-10-05 08:40:[address] [facility] CLOT EXPIRATION DATE 2020-10-05 08:40:00 Karyn Andre [facility] TMP INTERPRETATION 2020-10-05 08:40:00 Karyn Andre [facility] ANTIBODY SCREEN NEGATIVE MD [facility] TMP CROSSMATCH 2020-10-05 08:40:00 Karyn Andre [facility] INTERPRETATION [facility] LACTIC ACID, VENOUS 2020-10-05 06:43:[address] [facility] MAGNESIUM LEVEL 2020-10-05 06:43:00 Shraddha Nunn o f [facility] ARTERIAL BLOOD GAS 2020-10-05 06:43:00 Shraddha Nunn [facility] PROTHROMBIN TIME 2020-10-05 06:43:[address] [facility] APTT 2020-10-05 06:43:00 Yuriy Parker [facility] HEPATIC FUNCTION PANEL 2020-10-05 06:43:00 Yuriy Parker [facility] COMPLETE BLOOD COUNT W/ 2020-10-05 06:43:00 Yuriy Parker [facility] ALBUMIN LEVEL 2020-10-05 06:43:00 Chano Willams [place] o f [facility] ALKALINE PHOSPHATASE 2020-10-05 06:43:00 Chano Willams [facility] ALANINE AMINOTRANSFERASE 2020-10-05 06:43:00 Chano Willams [facility] ASPARTATE AMINOTRANSFERASE 2020-10-05 06:43:00 Chano Willams [facility] TOTAL PROTEIN 2020-10-05 06:43:00 Chano Willams [place] [facility] FRACTIONATED BILIRUBIN 2020-10-05 06:43:00 Chano Willams [facility] POC GLUCOSE SCREEN 2020-10-05 04:22:00 Randolph Payne [facility] POC GLUCOSE SCREEN 2020-10-04 22:35:00 Randolph Payne [facility] TRANSFUSE PLATELETS 2020-10-04 22:15:00 Cecelia Ley [facility] TMP EXCEPTION 2020-10-04 21:45:00 Randolph Payne [place] [facility] LACTIC ACID, VENOUS 2020-10-04 21:24:00 [facility] 2020-10-04 21:24:00 [facility] BASIC METABOLIC PANEL, 2020-10-04 21:24:00 Cecelia Ley [facility] CALCIUM IONIZED [facility] PHOSPHORUS LEVEL 2020-10-04 21:24:00 Cecelia Ley [facility] GLUCOSE LEVEL 2020-10-04 21:24:[address] [facility] BLOOD UREA NITROGEN 2020-10-04 21:24:00 Cecelia Ley [facility] ELECTROLYTE PANEL 2020-10-04 21:24:[address] [facility] SERUM CREATININE 2020-10-04 21:24:00 Cecelia Ley [facility] .GLOMERULAR FILTRATION 2020-10-04 21:24:00 Cecelia Ley [facility] RATE [facility] CALCIUM IONIZED, VENOUS 2020-10-04 21:24:00 Cecelia Ley [facility] MAGNESIUM LEVEL 2020-10-04 21:24:[address] [facility] PREPARE PLATELETS 2020-10-04 19:15:[address] [facility] PLT PRODUCT READY FOR PICK 2020-10-04 19:15:00 Randolph Payne [facility] COMPLETE BLOOD COUNT W/ 2020-10-04 17:40:00 Cecelia Ley [facility] DIFFERENTIAL [facility] FIBRINOGEN ACTIVITY 2020-10-04 17:40:00 Cecelia Ley [facility] Results CBC 2020-10-04 17:40:[address] [facility] MANUAL DIFFERENTIAL 2020-10-04 17:40:00 Cecelia Ley [facility] BLOODCULTURE 2020-10-04 17:06:[address] [facility] POC GLUCOSE SCREEN 2020-10-04 16:36:00 Randolph Payne [facility] LACTIC ACID, VENOUS 2020-10-04 13:38:[address] [facility] BASIC METABOLIC PANEL, 2020-10-04 13:38:00 Shraddha Nunn [facility] CALCIUM IONIZED [facility] CALCIUM LEVEL TOTAL 2020-10-04 13:38:00 Edouard [facility] PHOSPHORUS LEVEL 2020-10-04 13:38:00 Edouard, [facility] MAGNESIUM LEVEL 2020-10-04 13:38:00 Edouard [facility] ARTERIAL BLOOD GAS 2020-10-04 13:38:[address] [facility] CALCIUM IONIZED, VENOUS 2020-10-04 13:38:00 Cory Hickman [facility] GLUCOSE LEVEL 2020-10-04 13:38:00 Cory Hickman [facility] BLOOD UREA NITROGEN 2020-10-04 13:38:[address] [facility] ELECTROLYTE PANEL 2020-10-04 13:38:00 Marylou [facility] SERUM CREATININE 2020-10-04 13:38:00 Marylou [facility] .GLOMERULAR FILTRATION 2020-10-04 13:38:00 Cory Hickman [facility] RATE [facility] POC GLUCOSE SCREEN 2020-10-04 10:57:00 Randolph Payne [facility] VRE CULTURE 2020-10-04 08:33:00 Yuriy Parker [facility] XR CHEST 1 VW PORTABLE 2020-10-04 06:27:00 Yuriy Parker [facility] ARTERIAL BLOOD GAS 2020-10-04 06:05:[address] [facility] MAGNESIUM LEVEL 2020-10-04 06:05:00 Edouard [facility] LACTIC ACID, VENOUS 2020-10-04 06:05:[address] [facility] BASIC METABOLIC PANEL, 2020-10-04 06:05:00 Edouard Shraddha [facility] CALCIUM IONIZED [facility] CALCIUM LEVEL TOTAL 2020-10-04 06:05:00 Edouard [facility] PHOSPHORUS LEVEL 2020-10-04 06:05:00 Edouard [facility] PROTHROMBIN TIME 2020-10-04 06:05:[address] [facility] APTT 2020-10-04 06:05:00 Yuriy Parker [facility] HEPATIC FUNCTION PANEL 2020-10-04 06:05:00 Yuriy Parker [facility] COMPLETE BLOOD COUNT W/ 2020-10-04 06:05:00 Yuriy Parker [facility] INDICES [facility] CALCIUM IONIZED, VENOUS 2020-10-04 06:05:00 Cory Hickman [facility] GLUCOSE LEVEL 2020-10-04 06:05:00 Cory Hickman [facility] BLOOD UREA NITROGEN 2020-10-04 06:05:[address] [facility] ELECTROLYTE PANEL 2020-10-04 06:05:00 Cory Hickman [facility] SERUM CREATININE 2020-10-04 06:05:00 Marylou [facility] .GLOMERULAR FILTRATION 2020-10-04 06:05:00 Cory Hickman [facility] RATE [facility] ALBUMIN LEVEL 2020-10-04 06:05:00 Imer Chaon [facility] ALKALINE PHOSPHATASE 2020-10-04 06:05:00 Chano Willams [facility] ALANINE AMINOTRANSFERASE 2020-10-04 06:05:00 Chano Willams [facility] ASPARTATE AMINOTRANSFERASE 2020-10-04 06:05:00 Chano Willams [facility] TOTAL PROTEIN 2020-10-04 06:05:00 Chano Willams [place] [facility] FRACTIONATED BILIRUBIN 2020-10-04 06:05:00 Chano Willams [facility] MAGNESIUM LEVEL 2020-10-04 05:58:00 Chano Willams [facility] POC GLUCOSE SCREEN 2020-10-04 04:24:00 Randolph Payne [facility] POC GLUCOSE SCREEN 2020-10-03 22:23:00 Randolph Payne [facility] LACTIC ACID, VENOUS 2020-10-03 21:07:[address] [facility] BASIC METABOLIC PANEL, 2020-10-03 21:07:00 Shraddha Nunn [facility] CALCIUM IONIZED [facility] CALCIUM LEVEL TOTAL 2020-10-03 21:07:00 Edouard [facility] PHOSPHORUS LEVEL 2020-10-03 21:07:00 Edouard [facility] MAGNESIUM LEVEL 2020-10-03 21:07:00 Edouard Shraddha [facility] ARTERIAL BLOOD GAS 2020-10-03 21:07:00 Edouard Shraddha [facility] HEPATITIS B SURFACE 2020-10-03 21:07:00 Edouard [facility] ANTIGEN, SERUM [facility] CALCIUM IONIZED, VENOUS 2020-10-03 21:07:00 Cory Hickman [facility] GLUCOSE LEVEL 2020-10-03 21:07:00 Cory Hickman [place] [facility] BLOOD UREA NITROGEN 2020-10-03 21:07:[address] [facility] ELECTROLYTE PANEL 2020-10-03 21:07:00 Cory Hickman [facility] SERUM CREATININE 2020-10-03 21:07:00 Marylou [facility] .GLOMERULAR FILTRATION 2020-10-03 21:07:00 Cory Hickman [facility] RATE [facility] HEPATITIS B SURFACE AG 2020-10-03 21:07:00 Rigo Orantes [facility] W/[facility] POC GLUCOSE SCREEN 2020-10-03 17:17:00 Randolph Payne [facility] LACTIC ACID, VENOUS 2020-10-03 13:51:[address] [facility] BASIC METABOLIC PANEL, 2020-10-03 13:51:00 Shraddha Nunn [facility] CALCIUM IONIZED [facility] CALCIUM LEVEL TOTAL 2020-10-03 13:51:[address] [facility] PHOSPHORUS LEVEL 2020-10-03 13:51:00 Edouard [facility] ARTERIAL BLOOD GAS 2020-10-03 13:51:00 Chano Willams [facility] CALCIUM IONIZED, VENOUS 2020-10-03 13:51:00 Cory Hickman [facility] GLUCOSE LEVEL 2020-10-03 13:51:00 Cory Hickman [place] [facility] BLOOD UREA NITROGEN 2020-10-03 13:51:[address] [facility] ELECTROLYTE PANEL 2020-10-03 13:51:00 Mayrlou [facility] SERUM CREATININE 2020-10-03 13:51:00 Marylou [facility] .GLOMERULAR FILTRATION 2020-10-03 13:51:00 Cory Hickman [facility] RATE [facility] MAGNESIUM LEVEL 2020-10-03 13:51:00 Cory Hickman o f [facility] POC GLUCOSE SCREEN 2020-10-03 10:47:00 Randolph Payne [facility] XR CHEST 1 VW PORTABLE 2020-10-03 06:41:19 Yuriy Parker [facility] LACTIC ACID, VENOUS 2020-10-03 05:42:[address] [facility] BASIC METABOLIC PANEL, 2020-10-03 05:42:00 Shraddha Nunn [facility] CALCIUM IONIZED [facility] CALCIUM LEVEL TOTAL 2020-10-03 05:42:[address] [facility] PHOSPHORUS LEVEL 2020-10-03 05:42:00 Edouard [facility] PROTHROMBIN TIME 2020-10-03 05:42:[address] [facility] APTT 2020-10-03 05:42:00 Yuriy Parker [facility] ARTERIAL BLOOD GAS 2020-10-03 05:42:00 Chano Willams [facility] MAGNESIUM LEVEL 2020-10-03 05:42:00 Chano Willams [facility] HEPATIC FUNCTION PANEL 2020-10-03 05:42:00 Yuriy Parker [facility] COMPLETE BLOOD COUNT W/ 2020-10-03 05:42:00 Yuriy Parker [facility] INDICES [facility] CALCIUM IONIZED, VENOUS 2020-10-03 05:42:00 Croy Hickman [facility] GLUCOSE LEVEL 2020-10-03 05:42:00 Cory Hickman o f [facility] BLOOD UREA NITROGEN 2020-10-03 05:42:[address] [facility] ELECTROLYTE PANEL 2020-10-03 05:42:00 Cory Hickman [facility] SERUM CREATININE 2020-10-03 05:42:00 Marylou [facility] .GLOMERULAR FILTRATION 2020-10-03 05:42:00 Cory Hickman [facility] RATE [facility] ALBUMIN LEVEL 2020-10-03 05:42:00 Chano Willams [place] [facility] ALKALINE PHOSPHATASE 2020-10-03 05:42:00 Chano Willams [facility] ALANINE AMINOTRANSFERASE 2020-10-03 05:42:00 Chano Willams [facility] ASPARTATE AMINOTRANSFERASE 2020-10-03 05:42:00 Chano Willams [facility] TOTAL PROTEIN 2020-10-03 05:42:00 Chano Willams [place] o f [facility] FRACTIONATED BILIRUBIN 2020-10-03 05:42:00 Chano Willams [facility] POC GLUCOSE SCREEN 2020-10-03 04:49:00 Randolph Payne [facility] POC GLUCOSE SCREEN 2020-10-02 22:26:00 Randolph Payne [facility] LACTIC ACID, VENOUS 2020-10-02 21:29:[address] [facility] BASIC METABOLIC PANEL, 2020-10-02 21:29:00 [facility]unn [facility] CALCIUM IONIZED [facility] CALCIUM LEVEL TOTAL 2020-10-02 21:29:[address] [facility] PHOSPHORUS LEVEL 2020-10-02 21:29:00 [facility]LO[facility] GAS 2020-10-02 21:29:00 Chano Willams [facility] MAGNESIUM LEVEL 2020-10-02 21:29:00 Imer [facility] CALCIUM IONIZED, VENOUS 2020-10-02 21:29:00 Cory Hickman [facility] GLUCOSE LEVEL 2020-10-02 21:29:00 Cory Hickman [facility] BLOOD UREA NITROGEN 2020-10-02 21:29:[address] [facility] ELECTROLYTE PANEL 2020-10-02 21:29:00 Marylou [facility] SERUM CREATININE 2020-10-02 21:29:00 Marylou [facility] .GLOMERULAR FILTRATION 2020-10-02 21:29:00 Cory Hickman [facility] RATE [facility] POC GLUCOSE SCREEN 2020-10-02 16:42:00 Randolph Payne [facility] ARTERIAL BLOOD GAS 2020-10-02 15:36:00 [facility] MAGNESIUM LEVEL 2020-10-02 15:36:00 [facility] TYPE AND SCREEN 2020-10-02 12:59:00 Yuriy Parker [facility] LACTIC ACID, VENOUS 2020-10-02 12:59:[address] [facility] BASIC METABOLIC PANEL, 2020-10-02 12:59:00 Shraddha Nunn [facility] CALCIUM IONIZED [facility] CALCIUM LEVEL TOTAL 2020-10-02 12:59:00 Edouard [facility] PHOSPHORUS LEVEL 2020-10-02 12:59:00 Edouard [facility] ABORH 2020-10-02 12:59:[address] [facility] ANTIBODY SCREEN 2020-10-02 12:59:[address] [facility] CALCIUM IONIZED, VENOUS 2020-10-02 12:59:00 Cory Hickman [facility] GLUCOSE LEVEL 2020-10-02 12:59:00 Cory Hickman [place] o f [facility] BLOOD UREA NITROGEN 2020-10-02 12:59:[address] [facility] ELECTROLYTE PANEL 2020-10-02 12:59:00 Cory Hickman [facility] SERUM CREATININE 2020-10-02 12:59:00 Marylou [facility] .GLOMERULAR FILTRATION 2020-10-02 12:59:00 Cory Hickman [facility] RATE [facility] CLOT EXPIRATION DATE 2020-10-02 12:59:00 [facility] TMP INTERPRETATION 2020-10-02 12:59:00 Karyn Andre [facility] ANTIBODY SCREEN NEGATIVE MD Thompson [facility] POC GLUCOSE SCREEN 2020-10-02 10:41:00 Randolph Payne [facility] XR CHEST 1 VW PORTABLE 2020-10-02 07:42:56 Yuriy Parker [facility] GENERAL LABORATORY ADD ON 2020-10-02 07:35:00 [facility] GENERAL LABORATORY ADD ON 2020-10-02 07:32:00 [facility] LACTIC ACID, VENOUS 2020-10-02 05:56:[address] [facility] BASIC METABOLIC PANEL, 2020-10-02 05:56:00 [facility]unn [facility] CALCIUM IONIZED [facility] CALCIUM LEVEL TOTAL 2020-10-02 05:56:[address] [facility] PHOSPHORUS LEVEL 2020-10-02 05:56:00 Shraddha Nunn [facility] PROTHROMBIN TIME 2020-10-02 05:56:[address] [facility] APTT 2020-10-02 05:56:00 Yuriy Parker [facility] ARTERIAL BLOOD GAS 2020-10-02 05:56:00 Chano Willams [facility] MAGNESIUM LEVEL 2020-10-02 05:56:00 Imer Chano [place] o [facility] HEPATIC FUNCTION PANEL 2020-10-02 05:56:00 Yuriy Parker [facility] COMPLETE BLOOD COUNT W/ 2020-10-02 05:56:00 Yuriy Parker [facility] CALCIUM IONIZED, VENOUS 2020-10-02 05:56:00 Cory Hickman [facility] GLUCOSE LEVEL 2020-10-02 05:56:00 Cory Hickman [facility] BLOOD UREA NITROGEN 2020-10-02 05:56:[address] [facility] ELECTROLYTE PANEL 2020-10-02 05:56:00 Marylou [facility] SERUM CREATININE 2020-10-02 05:56:00 Marylou [facility] .GLOMERULAR FILTRATION 2020-10-02 05:56:00 Cory Hickman [facility] ALBUMIN LEVEL 2020-10-02 05:56:00 Chano Willams o f [facility] ALKALINE PHOSPHATASE 2020-10-02 05:56:00 Chano Willams [facility] ALANINE AMINOTRANSFERASE 2020-10-02 05:56:00 Chano Willams [facility] ASPARTATE AMINOTRANSFERASE 2020-10-02 05:56:00 [facility] TOTAL PROTEIN 2020-10-02 05:56:00 Imer, Counts Include [facility] o [facility] FRACTIONATED BILIRUBIN 2020-10-02 05:56:00 Chano Willams [facility] POC GLUCOSE SCREEN 2020-10-02 04:42:00 Randolph Payne [facility] POC GLUCOSE SCREEN 2020-10-01 22:24:00 Randolph Payne [facility] LACTIC ACID, VENOUS 2020-10-01 21:48:[address] [facility] BASIC METABOLIC PANEL, 2020-10-01 21:48:00 Shraddha Nunn [facility] CALCIUM IONIZED [facility] CALCIUM LEVEL TOTAL 2020-10-01 21:48:00 Edouard [facility] PHOSPHORUS LEVEL 2020-10-01 21:48:00 Edouard [facility] ARTERIAL BLOOD GAS 2020-10-01 21:48:00 Chano Willams [facility] MAGNESIUM LEVEL 2020-10-01 21:48:00 Imer, [facility] THYROID STIMULATING 2020-10-01 21:48:00 Jurgen Queen [facility] HORMONE [facility] FREE THYROXINE 2020-10-01 21:48:00 [facility] CALCIUM IONIZED, VENOUS 2020-10-01 21:48:00 Cory Hickman [facility] GLUCOSE LEVEL 2020-10-01 21:48:00 Cory Hickman [facility] BLOOD UREA NITROGEN 2020-10-01 21:48:[address] [facility] ELECTROLYTE PANEL 2020-10-01 21:48:00 Cory Hickman [facility] SERUM CREATININE 2020-10-01 21:48:00 Cory Hickman [facility] .GLOMERULAR FILTRATION 2020-10-01 21:48:[address] [facility] XR ABDOMEN 1 VW PORTABLE 2020-10-01 18:55:51 Kiara Patel [facility] POC GLUCOSE SCREEN 2020-10-01 16:30:00 Randolph Payne [facility] LACTIC ACID, VENOUS 2020-10-01 13:38:[address] [facility] BASIC METABOLIC PANEL, 2020-10-01 13:38:00 Shraddha Nunn [facility] CALCIUM IONIZED [facility] CALCIUM LEVEL TOTAL 2020-10-01 13:38:00 Edouard [facility] PHOSPHORUS LEVEL 2020-10-01 13:38:00 Edouard [facility] ARTERIAL BLOOD GAS 2020-10-01 13:38:00 Imer Chano [facility] MAGNESIUM LEVEL 2020-10-01 13:38:00 Imer [facility] CALCIUM IONIZED, VENOUS 2020-10-01 13:38:00 Cory Hickman [facility] GLUCOSE LEVEL 2020-10-01 13:38:00 Cory Hickman [place] o f [facility] BLOOD UREA NITROGEN 2020-10-01 13:38:[address] [facility] ELECTROLYTE PANEL 2020-10-01 13:38:00 Cory Hickman [facility] SERUM CREATININE 2020-10-01 13:38:00 Marylou [facility] .GLOMERULAR FILTRATION 2020-10-01 13:38:[address] [facility] POC GLUCOSE SCREEN 2020-10-01 10:26:00 Randolph Payne [facility] ARTERIAL BLOOD GAS 2020-10-01 06:43:00 Chano Willams [facility] XR CHEST 1 VW PORTABLE 2020-10-01 05:54:00 Yuriy Parker [facility] LACTIC ACID, VENOUS 2020-10-01 05:47:[address] [facility] CALCIUM LEVEL TOTAL 2020-10-01 05:47:[address] [facility] PHOSPHORUS LEVEL 2020-10-01 05:47:00 Imer [facility] MAGNESIUM LEVEL 2020-10-01 05:47:00 Imer Chano [facility] VENOUS BLOOD GAS 2020-10-01 05:47:00 Karyn Andre [facility] PROTHROMBIN TIME 2020-10-01 05:47:[address] [facility] APTT 2020-10-01 05:47:00 Yuriy Parker [facility] BASIC METABOLIC PANEL, 2020-10-01 05:47:00 Chano Willams [facility] CALCIUM IONIZED [facility] COMPLETE BLOOD COUNT W/ 2020-10-01 05:47:00 Chano Willams [facility] INDICES [facility] HEPATIC FUNCTION PANEL 2020-10-01 05:47:00 Yuriy Parker [facility] CALCIUM IONIZED, VENOUS 2020-10-01 05:47:00 Chano Willams [facility] GLUCOSE LEVEL 2020-10-01 05:47:00 Imer Chano [facility] BLOOD UREA NITROGEN 2020-10-01 05:47:[address] [facility] ELECTROLYTE PANEL 2020-10-01 05:47:00 Chano Willams [facility] SERUM CREATININE 2020-10-01 05:47:00 Chano Willams [facility] .GLOMERULAR FILTRATION 2020-10-01 05:47:[address] [facility] ALBUMIN LEVEL 2020-10-01 05:47:00 Chano Willams [place] [facility] ALKALINE PHOSPHATASE 2020-10-01 05:47:00 Chano Willams [facility] ALANINE AMINOTRANSFERASE 2020-10-01 05:47:00 Chano Willams [facility] ASPARTATE AMINOTRANSFERASE 2020-10-01 05:47:00 Chano Willams [facility] TOTAL PROTEIN 2020-10-01 05:47:00 Chano Willams [facility] FRACTIONATED BILIRUBIN 2020-10-01 05:47:00 [facility] POC GLUCOSE SCREEN 2020-10-01 04:13:00 Randolph Payne [facility] EKG, 12-LEAD (PORTABLE) 2020-10-01 00:00:00 Yuriy Parker [facility] POC GLUCOSE SCREEN 2020-09-30 22:29:00 Randolph Payne [facility] ARTERIAL BLOOD GAS 2020-09-30 21:54:00 Chano Willams [facility] LACTIC ACID, VENOUS 2020-09-30 21:54:[address] [facility] COMPLETE BLOOD COUNT W/ 2020-09-30 21:54:00 Chano Willams [facility] INDICES [facility] BASIC METABOLIC PANEL, 2020-09-30 21:54:00 Shraddha Nunn [facility] CALCIUM IONIZED [facility] CALCIUM LEVEL TOTAL 2020-09-30 21:54:00 Shraddha Nunn [facility] PHOSPHORUS LEVEL 2020-09-30 21:54:00 Edouard [facility] MAGNESIUM LEVEL 2020-09-30 21:54:00 Edouard [facility] CALCIUM IONIZED, VENOUS 2020-09-30 21:54:00 Cory Hickman [facility] GLUCOSE LEVEL 2020-09-30 21:54:00 Cory Hickman [facility] BLOOD UREA NITROGEN 2020-09-30 21:54:[address] [facility] ELECTROLYTE PANEL 2020-09-30 21:54:00 Marylou [facility] SERUM CREATININE 2020-09-30 21:54:00 Marylou [facility] .GLOMERULAR FILTRATION 2020-09-30 21:54:00 Cory Hickman [facility] RATE [facility] TRANSFUSE FRESH FROZEN 2020-09-30 21:30:00 [facility] PLASMA [facility] LEGIONELLA CULTURE 2020-09-30 21:25:00 Chano Willams [facility] AFB CULTURE W/ SMEAR 2020-09-30 21:25:00 Chano Willams [facility] FUNGUS CULTURE 2020-09-30 21:25:00 Chano Willams [facility] LOWER RESPIRATORY CULTURE 2020-09-30 21:25:00 Chano Willams [facility] W/ GRAM STAIN [facility] PNEUMOCYSTIS JIROVECI 2020-09-30 21:25:00 [facility] CYTOLOGY NON-SVP GROUP DIRECTOR 2020-09-30 21:17:00 Chano Willams [facility] INTERPRETATION [facility] XR CHEST 1 VW PORTABLE 2020-09-30 20:30:10 Chano Willams [facility] HEPATITIS B SURFACE 2020-09-30 18:36:00 Shraddha Nunn [facility] ANTIGEN, SERUM [facility] LACTIC ACID, VENOUS 2020-09-30 18:36:[address] [facility] HEPATITIS B SURFACE AG 2020-09-30 18:36:00 Cory Hickman [facility] W/CONFIRM [facility] ID INSERT NON-TUNNEL CV 2020-09-30 17:15:00 Chano Willams [facility] CATH [facility] ID INSERT 2020-09-30 17:15:00 Chano Willams [place] [facility] CATH,ART,CUTDOWN,SHORTTERM MD [facility] ID CHG US GUIDE, VASCULAR 2020-09-30 17:15:00 [facility] ARTERIAL BLOOD GAS 2020-09-30 17:12:00 Chano Willams [facility] POC GLUCOSE SCREEN 2020-09-30 16:50:00 Randolph Payne [facility] TRANSFUSE FRESH FROZEN 2020-09-30 16:42:00 Chano Willams [facility] PLASMA [facility] BASIC METABOLIC PANEL, 2020-09-30 15:48:00 Chano Willams [facility] CALCIUM IONIZED [facility] MAGNESIUM LEVEL 2020-09-30 15:48:00 Chano Willams [place] [facility] PHOSPHORUS LEVEL 2020-09-30 15:48:00 Imer Chano [facility] COMPLETE BLOOD COUNT W/ 2020-09-30 15:48:00 Chano Willams [facility] INDICES [facility] GLUCOSE LEVEL 2020-09-30 15:48:00 Chano Willams [place] [facility] BLOOD UREA NITROGEN 2020-09-30 15:48:[address] [facility] ELECTROLYTE PANEL 2020-09-30 15:48:00 Chano Willams [facility] SERUM CREATININE 2020-09-30 15:48:00 Chano Willams [facility] .GLOMERULAR FILTRATION 2020-09-30 15:48:00 [facility]ams [facility] RATE [facility] CALCIUM IONIZED, VENOUS 2020-09-30 15:48:00 Chano Willams [facility] XR CHEST 1 VW 2020-09-30 14:42:55 Chano Willams o [facility] PREPARE FRESH FROZEN 2020-09-30 11:20:00 Chano Willams [facility] PLASMA [facility] FFP PRODUCT READY FOR PICK 2020-09-30 11:20:00 Randolph Payne [facility] UP [facility] POC GLUCOSE SCREEN 2020-09-30 11:18:00 Randolph Payne [facility] GENERAL LABORATORY ADD ON 2020-09-30 11:11:00 [facility] TEST [facility] COMPLETE BLOOD COUNT W/ 2020-09-30 07:54:00 Chano Willams [facility] DIFFERENTIAL [facility] BASIC METABOLIC PANEL, 2020-09-30 07:54:00 Chano Willams [facility] CALCIUM IONIZED [facility] MAGNESIUM LEVEL 2020-09-30 07:54:00 Chano Willams [facility] PHOSPHORUS LEVEL 2020-09-30 07:54:00 Chano Willams [facility] CARDIAC PANEL 2020-09-30 07:54[facility]00 [facility] 2020-09-30 07:54:00 Karyn Andre [facility] PROTHROMBIN TIME 2020-09-30 07:54:00 [facility] APTT 2020-09-30 07:54:00 Yuriy Parker [facility] Results CBC 2020-09-30 07:54:00 Imer Chano [place] [facility] MANUAL DIFFERENTIAL 2020-09-30 07:54:[address] [facility] GLUCOSE LEVEL 2020-09-30 07:54:00 Imer Chano [place] [facility] BLOOD UREA NITROGEN 2020-09-30 07:54:[address] [facility] ELECTROLYTE PANEL 2020-09-30 07:54:00 Imer Chano [facility] SERUM CREATININE 2020-09-30 07:54:00 Imer Chano [facility] .GLOMERULAR FILTRATION 2020-09-30 07:54:[address] [facility] CALCIUM IONIZED, VENOUS 2020-09-30 07:54:00 Chano Willams [facility] ALBUMIN LEVEL 2020-09-30 07:54:00 Randolph Payne [facility] ALKALINE PHOSPHATASE 2020-09-30 07:54:00 Randolph Payne [facility] ALANINE AMINOTRANSFERASE 2020-09-30 07:54:00 Randolph Payne [facility] ASPARTATE AMINOTRANSFERASE 2020-09-30 07:54:00 Randolph Payne [facility] TOTAL PROTEIN 2020-09-30 07:54:00 Randolph Payne o [facility] FRACTIONATED BILIRUBIN 2020-09-30 07:54:00 Randolph Payne [facility] XR CHEST 1 VW PORTABLE 2020-09-30 06:08:59 Yuriy Parker [facility] POC GLUCOSE SCREEN 2020-09-30 04:38:00 Randolph Payne [facility] POC GLUCOSE SCREEN 2020-09-29 22:06:[address] [facility] CARDIAC PANEL 2020-09-29 20:28:[address] [facility] BASIC METABOLIC PANEL, 2020-09-29 20:28:00 Chano Willams [facility] CALCIUM IONIZED [facility] MAGNESIUM LEVEL 2020-09-29 20:28:00 Imer [facility] PHOSPHORUS LEVEL 2020-09-29 20:28:00 Imer [facility] GLUCOSE LEVEL 2020-09-29 20:28:00 Imer Chano [facility] BLOOD UREA NITROGEN 2020-09-29 20:28:[address] [facility] ELECTROLYTE PANEL 2020-09-29 20:28:00 Imer Chano [facility] SERUM CREATININE 2020-09-29 20:28:00 Imer Chano [facility] .GLOMERULAR FILTRATION 2020-09-29 20:28:00 Chano Willams [facility] RATE [facility] CALCIUM IONIZED, VENOUS 2020-09-29 20:28:00 Chano Willams [facility] FIBRINOGEN ACTIVITY 2020-09-29 19:30:[address] [facility] COMPLETE BLOOD COUNT W/ 2020-09-29 19:30:00 Chano Willams [facility] DIFFERENTIAL [facility] CALCIUM IONIZED, VENOUS 2020-09-29 19:30:00 Chano Willams [facility] Results CBC 2020-09-29 19:30:00 Imer Chano [facility] DIFFERENTIAL CANCEL 2020-09-29 19:30:[address] [facility] VENOUS BLOOD GAS 2020-09-29 17:13:00 Karyn Andre [facility] COMPLETE BLOOD COUNT W/ 2020-09-29 17:13:00 Chano Willams [facility] DIFFERENTIAL [facility] BASIC METABOLIC PANEL, 2020-09-29 17:13:00 Chano Willams [facility] CALCIUM IONIZED [facility] MAGNESIUM LEVEL 2020-09-29 17:13:00 [facility] PHOSPHORUS LEVEL 2020-09-29 17:13:00 [facility] CALCIUM IONIZED, VENOUS 2020-09-29 17:13:00 Chano Willams [facility] Results CBC 2020-09-29 17:13:00 Iemr, [facility] GLUCOSE LEVEL 2020-09-29 17:13:[address] [facility] BLOOD UREA NITROGEN 2020-09-29 17:13:[address] [facility] ELECTROLYTE PANEL 2020-09-29 17:13:00 Imer [facility] SERUM CREATININE 2020-09-29 17:13:00 [facility]OM[facility]TRATION 2020-09-29 17:13:00 Chano Willams [facility] RATE [facility] DIFFERENTIAL CANCEL 2020-09-29 17:13:[address] [facility] URINALYSIS WITH 2020-09-29 16:51:00 Bud Jarrett [facility] MICROSCOPIC IF INDICATED Junior [facility] URINALYSIS MICROSCOPIC 2020-09-29 16:51:00 Bud Jarrett [facility] Junior [facility] ECHOCARDIOGRAM 2D LIMITED 2020-09-29 16:24:44 Karyn Andre [facility] - FOLLOW UP [facility] POC GLUCOSE SCREEN 2020-09-29 16:08:00 Randolph Payne [facility] BASIC METABOLIC PANEL, 2020-09-29 13:18:[address] [facility] [place] CALCIUM IONIZED [facility] CARDIAC PANEL 2020-09-29 13:18:00 Karyn Andre Universi ty [facility] MAGNESIUM LEVEL 2020-09-29 13:18:00 Karyn Andre [facility]i ty [facility] PHOSPHORUS LEVEL 2020-09-29 13:18:00 Karyn Andre Univers ity [facility] HEPATIC FUNCTION PANEL 2020-09-29 13:18:00 Karyn Andre U [facility] of [facility] GLUCOSE LEVEL 2020-09-29 13:18:00 Karyn Andre Universi ty of [facility] BLOOD UREA NITROGEN 2020-09-29 13:18:00 Karyn Andre Univ ersity [facility] ELECTROLYTE PANEL 2020-09-29 13:18:00 [facility] SERUM CREATININE 2020-09-29 13:18:00 Karyn Andre Univers ity [facility] .GLOMERULAR FILTRATION 2020-09-29 13:18:00 Karyn Andre [facility] of [place] RATE [facility] ALBUMIN LEVEL 2020-09-29 13:18:00 Karyn Andre Universi ty [facility] ALKALINE PHOSPHATASE 2020-09-29 13:18:00 Karyn Andre [facility] ALANINE AMINOTRANSFERASE 2020-09-29 13:18:00 Karyn Andre [facility] ASPARTATE AMINOTRANSFERASE 2020-09-29 13:18:00 Karyn Andre [facility] TOTAL PROTEIN 2020-09-29 13:18:00 Karyn Andre Universi ty [facility] FRACTIONATED BILIRUBIN 2020-09-29 13:18:00 Karyn Andre U [facility] of [facility] BLOODCULTURE 2020-09-29 13:10:00 Karyn Andre Universi ty [facility] TYPE AND SCREEN 2020-09-29 13:10:[address] [facility] ABORH 2020-09-29 13:10:[address] [facility] ANTIBODY SCREEN 2020-09-29 13:10:[address] [facility] CLOT EXPIRATION DATE 2020-09-29 13:10:00 K[facility] INTERPRETATION 2020-09-29 13:10:00 Karyn Andre [facility] ANTIBODY SCREEN NEGATIVE MD [facility] RESPIRATORY VIRAL PANEL + 2020-09-29 12:21:00 Marty Jarrett [facility] COVID-19, NASOPHARYNGEAL Junior MD [facility] BLOODCULTURE 2020-09-29 11:30:[address] [facility] ARTERIAL BLOOD GAS 2020-09-29 11:26:00 Karyn Andre [facility] XR CHEST 1 VW 2020-09-29 11:21:[address] [facility] POC GLUCOSE SCREEN 2020-09-29 11:15:00 Bud Jarrett [facility] VRE CULTURE 2020-09-29 11:07:[address] [facility] EKG, 12-LEAD (PORTABLE) 2020-09-29 00:00:00 Karyn Andre [facility] OSI CHEST 2020-09-28 16:51:00 [facility] COVID-19 (ID NOW RAPID 2020-01-29 16:36:00 [facility] TESTING) Medical Branch DME/SUPPLY JUSTIFICATION 2019-09-19 05:01:00 Doctor Unassigned, No [facility] DME/SUPPLY JUSTIFICATION 2019-07-17 05:01:00 Doctor Unassigned, No [facility] Repair of knee collateral 1973-03-27 00:00:00 Me morial [place] ligaments Plan of Care Planned Activity Planned [...] Test 00:00:00 (2 - PPSV23 or PCV20) [facility] [code = PNEUMOCOCCAL 65+ YRS (2 - [...] [facility] Test 00:00:00 [code = COVID-[address] VACCINE (#1)] Future Scheduled 1949-04-10 COVID-19 [...] [facility] colon (procedure) [code = 479259681] Future Scheduled [address] [facility]00 malignant [facility] colon (procedure) [code = 832071554] Future Scheduled [address] [facility] 00:00:00 [facility] colon (procedure) [code = 909672624] Future Scheduled [address] [facility] 00:00:00 [facility] colon (procedure) [code = 705443786] Future Scheduled 1948 Sigmoidoscopy [code [facility]] [facility] Cent[facility] r Future Scheduled [address] [facility] 00:00:00 (combo) [code = CT Medical C enter Colonography (combo)] Future Scheduled [address] [facility] 00:00:00 [facility] colon (procedure) [code = 924464724] Future Scheduled [address] [facility] [facility] 00:00:00 malignant [facility] colon (procedure) [code = 693947205] Future Scheduled [address] [facility] 00:00:00 malignant [facility] colon (procedure) [code = 822100039] Future Scheduled [address] [facility] [facility] 00:00:00 malignant [facility] colon (procedure) [code = 897983919] Future Scheduled 1948 Sigmoidoscopy [facility]code [facility]oscopy] Medical Cente r Future Scheduled [address] [facility] 00:00:00 (combo) [code = CT Medical C enter Colonography (combo)] Future Scheduled 1948 Screening [facility] (procedure) [code = 535781061] Future Scheduled [address] [facility]00 [facility] (procedure) [code = 409288010] Future Scheduled [address] [facility] 00:[facility]:00 [facility] (procedure) [code = 165904786] Future Scheduled [address] [facility] 00:[facility]:00 [facility] colon (procedure) [code = 184389274] Future Scheduled 1948 Sigmoidoscopy [code [facility]] Medical [place] r Future Scheduled [address] [facility] 00:00:00 (combo) [code = CT Medical C enter Colonography (combo)] Future Scheduled [address] [facility]00 [facility] colon (procedure) [code = 113427608] Future Scheduled [address] [facility] 00:00:00 [facility] colon (procedure) [code = 423200780] Future Scheduled [address] [facility] 00:00:00 [facility] (procedure) [code = 289042410] Future Scheduled [address] [facility] 00:00:00 [facility] colon (procedure) [code = 450706828] Future Scheduled 1948 [facility]oidoscopy [facility]code [facility]] [facility] Future Scheduled [address] [facility] 00:[facility]:00 [facility] colon (procedure) [code = 666259840] Future Scheduled [address] [facility] 00:00:00 [facility] colon (procedure) [code = 579521951] Future Scheduled [address] [facility] 00:00:00 [facility] colon (procedure) [code = 773275761] Future Scheduled [address] [facility] 00:00:00 [facility] colon (procedure) [code = 639992453] Future Scheduled 1948 [facility]] [facility] r Future Scheduled [address] [facility] 00:00:00 (combo) [code = CT Medical C enter Colonography (combo)] Encounters Start End Encounter Admission Attending Care Care Encounter Source Date/Time Date/Time Type Type Clinicians Facility Department ID 2021-08-10 Outpatient Keren [facility] [id number] Common 09:07:23 Ray [facility] 2021-04-22 Outpatient 3 [id number] ENCPL JAZMÍN [id number] [facility] 12:42:06 [facility] [place] [facility] 2021-04-22 Outpatient 3 [id number] ENCPL REF [id number] [facility] 12:40:14 0809 [facility] [place] 2021-04-22 Outpatient 3 [id number] ENCPL PUL [id number] [facility] 12:39:34 0807 [facility] [place] 2021-04-22 Outpatient 3 [id number] ENCPL REF [id number] [facility] 12:38:17 0804 [facility] [place] 2021-04-22 Outpatient 3 [id number] ENCPL REF [id number] [facility] 12:38:06 0803 [facility] [place] 2021-04-21 Outpatient Veliz, [facility] [id number] Common 13:20:21 Ray 91319 [facility] 2021-04-21 Outpatient Keren [facility] [id number] Common 13:18:24 Ray 83072 [facility] 2021-04-21 Outpatient Veliz, [facility] [id number] Common 12:28:07 Ray [id number] [facility] 2021-04-21 Outpatient STLC [facility] [id number] Common 11:59:29 [id number] [facility] 2021-01-02 Inpatient RASLAN, [facility] Surgery [id number] [facility] 11:38:46 NINA 2021-01-02 Inpatient ER NASSER, [facility] Cardiac ICU [id number] 11:38:15 [facility] 2020-10-19 Outpatient SYSTEM, JUDITH WONG [id number] 07:44:13 PROVIDER Herman archuleta 2020-09-25 Outpatient PISIMISIS, JUDITH Thoracic [id number] 08:45:30 BETH archuleta 2020-09-03 Outpatient SYSTEM, [facility] JUDITH [id number] 11:18:01 PROVIDER Herman archuleta 2023-03-17 2023-03-17 Outpatient R NICOLE CHEEK [facility] 10 [id number] Univers 09:30:00 09:30:00 NICOLE CHEEK i ty [facility] 2023-01-27 2023-01-27 Outpatient R NICOLE CHEEK [facility] 10 [id number] Univers 15:55:58 23:59:00 NICOLE CHEEK i ty [facility] 2023-01-27 2023-01-27 [facility] 1.2.840.114 [id number] Univers 15:30:00 23:59:00 Encounter Nicole HOOKS 350.1.13.10 ity [facility] 4.2.7.2.686 [facility] [place] [phone] [place] [address] [place] 2023-01-27 2023-01-27 Telephone [facility] 1.2.199.816 [id number] Univers 00:00:00 00:00:00 Nicole HOOKS 350.1.13.10 i ty [facility] 4.2.7.2.686 [facility] s PROFESSIO [phone] Ak dical [address] 2023-01-20 2023-01-20 Outpatient R NICOLE CHEEK [facility] 10 [id number] Univers 10:00:00 12:04:09 NICOLE CHEEK i ty of [facility] 2023-01-20 2023-01-20 Office Willy [facility] 1.2.840.114 [id number] Univers 10:00:00 12:04:09 Visit Nicole HOOKS 350.1.13.10 i ty of [place] [phone] Ak dical [facility] 2023-01-20 2023-01-20 Orders Doctor ZAVALA 1.2.840.114 [id number] Univers 00:00:00 00:00:00 Only Unassigned, SAMANTHA 350.1.13.10 ity of [place] [facility] 4.2.7.2.686 [place] [phone] [address] 2022-10-17 2022-10-17 Orders Doctor ZAVALA 1.2.840.114 [id number] Univers 00:00:00 00:00:00 Only Unassigned, SAMANTHA 350.1.13.10 ity of [place] [facility] 4.2.7.2.686 [place] [phone] [address] 2021-12-08 2021-12-08 OFFICE [facility] [id number] mmon 00:00:00 00:00:00 VISIT DAVID Spir it PT LEVEL 3 - [facility] 2021-04-16 2021-04-16 Orders Neymar, 1.2.840.1 [id number] Univers 00:00:00 00:00:00 Only Kimberlee 49703.1.1 ity of [place] 3.412.2.7 [place] .3.786779 MD Correa8 [facility] 2021-03-16 2021-03-16 Telemedici Vesta Trinh 1.2.840.1 [id number] Univers 11:30:00 11:45:00 ne Katelin Ceja 91961.1.1 ity of 3.412.2.7 [place] .3.362185 .8 [facility] 2020-12-25 2020-12-25 Orders Neymar, 1.2.840.1 [id number] Univers 00:00:00 00:00:00 Only Kimberlee 67802.1.1 ity of Sue 3.412.2.7 [place] .3.276945 MD Correa8 [facility] 2020-12-23 2020-12-23 Telemedici RACHEL Smith, 1.2.840.1 [id number] Univers 09:30:00 09:45:47 ne Dru 96203.1.1 ity of 3.412.2.7 [place] .3.264555 MD Correa8 [facility] 2020-12-22 2020-12-22 Telephone Mulugeta, 1.2.840.1 [id number] 1 [id number] Univers 00:00:00 00:00:00 Bailey Villagomez 85300.1.1 ity of 3.412.2.7 [place] .3.880617 MD Correa8 [facility] 2020-12-16 2020-12-16 Telemattila Smith, 1.2.840.1 [id number] Univers 09:15:00 09:30:00 ne Dru 73848.1.1 ity of 3.412.2.7 [place] .3.895791 MD Correa8 [facility] 2020-12-15 2020-12-15 Telephone Mulugeta, 1.2.840.1 [id number] 1 [id number] Univers 00:00:00 00:00:00 Bailey Villagomez 79391.1.1 ity of 3.412.2.7 [place] .3.694551 MD Correa8 [facility] 2020-12-14 2020-12-14 Documentat Shank, 1.2.840.1 [id number] Univers 00:00:00 00:00:00 ion Princess Atwood 44145.1.1 ity of 3.412.2.7 [place] .3.253987 MD Correa8 [facility] 2020-12-09 2020-12-09 Telephone Cj, 1.2.840.1 [id number] 10 [id number] Univers 00:00:00 00:00:00 Antonette C 04022.1.1 ity of 3.412.2.7 [place] .3.752698 MD Correa8 [facility] 2020-12-07 2020-12-07 [facility] Nissa Carpenter 1.2.840.1 [id number] Univers 23:59:00 23:59:00 Encounter Latisha Canchola 63222.1.1 ity of 3.412.2.7 [place] .3.064684 MD Correa8 [facility] 2020-12-07 2020-12-07 [facility] Dru Smith 1.2.840.1 [id number] Univers 10:30:00 11:00:00 ne Swapnil Rose 77820.1.1 ity of 3.412.2.7 [place] .3.621212 MD Correa8 [facility] 2020-12-07 2020-12-07 Orders Eugene, 1.2.840.1 [id number] Univers 00:00:00 00:00:00 Only Vesta 85073.1.1 ity of 3.412.2.7 [place] .3.126922 MD Neves [facility] 2020-12-07 2020-12-07 Telephone Corona, 1.2.840.1 [id number] 10 [id number] Univers 00:00:00 00:00:00 Antonette C 97279.1.1 ity of 3.412.2.7 [place] .3.145976 MD Neves [facility] 2020-12-07 2020-12-07 Telephone Corona, 1.2.840.1 [id number] 10 [id number] Univers 00:00:00 00:00:00 Antonette C 05595.1.1 ity of 3.412.2.7 [place] .3.176142 MD Neves [facility] 2020-12-07 2020-12-07 Telephone Lit, 1.2.840.1 [id number] [id number] Univers 00:00:00 00:00:00 Fartun Jones 23136.1.1 ity of 3.412.2.7 [place] .3.723594 MD Correa8 [facility] 2020-12-03 2020-12-03 [facility] 1.2.840.1 [id number] 1 [id number] Univers 10:20:00 23:59:00 Mayra vilchis 27853.1.1 it y of Yomaira F 3.412.2.7 [place] .3.466284 MD Correa8 [facility] 2020-12-02 2020-12-02 Telemedici RACHEL Smith, 1.2.840.1 [id number] Univers 09:00:00 10:36:59 ifeoma Gonsales 04576.1.1 ity of 3.412.2.7 [place] .3.705485 MD Correa8 [facility] 2020-12-01 2020-12-01 Telephone Mulugeta 1.2.840.1 [id number] Univers 00:00:00 00:00:00 Bailey Villagomez 46265.1.1 ity of 3.412.2.7 [place] .3.926408 MD Correa8 [facility] 2020-12-01 2020-12-01 Javid Darling 1.2.840.1 [id number] Univers 00:00:00 00:00:00 Management Alyssa Glover 02899.1.1 ity of 3.412.2.7 [place] .3.290420 MD Correa8 [facility] 2020-11-25 2020-11-25 [facility] RACHEL Smith, 1.2.840.1 [id number] [id number] Univers 09:15:00 09:44:59 ne Dru 81627.1.1 ity of 3.412.2.7 [place] .3.571596 MD Correa8 [facility] 2020-11-24 2020-11-24 Telephone Mulugeta, 1.2.840.1 [id number] Univers 00:00:00 00:00:00 Bailey G 18429.1.1 ity of 3.412.2.7 [place] .3.134963 .8 [facility] 2020-11-16 2020-11-16 Telemattila Blackmon, 1.2.840.1 [id number] Univers 13:45:00 13:45:00 ne Kimberlee 01857.1.1 ity of Sue 3.412.2.7 [place] .3.604246 .8 [facility] 2020-11-16 2020-11-16 Documentat Herber, 1.2.840.1 [id number] Univers 00:00:00 00:00:00 ion Armando 60409.1.1 ity of Shahwar 3.412.2.7 [place] .3.359408 MD Correa8 [facility] 2020-09-29 2020-11-14 [facility] Bud Jarrett 1.2.840.1 [id number] Univers 05:35:00 14:35:00 Encounter Randolph Payne 81863.1.1 ity of Vivien, Alba P 3.412.2.7 [place] Banerjee, Darryl .3.868752 Kristina Kim .8 A Randolph Gupta [facility] 2020-11-14 2020-11-14 Orders Luciano, 1.2.840.1 [id number] Univers 00:00:00 00:00:00 Only Elizabeth 68567.1.1 ity of 3.412.2.7 [place] .3.715448 .8 [facility] 2020-11-13 2020-11-13 Orders Maverick, 1.2.840.1 [id number] 10 [id number] Univers 00:00:00 00:00:00 Only Charito Watts 70660.1.1 it y of 3.412.2.7 [place] .3.451210 .8 [facility] 2020-11-13 2020-11-13 Orders Prince, 1.2.840.1 [id number] [id number] Univers 00:00:00 00:00:00 Only Denny S 55865.1.1 ity of 3.412.2.7 [place] .3.771449 MD Correa8 [facility] 2020-11-13 2020-11-13 Orders Knight, 1.2.840.1 [id number] Univers 00:00:00 00:00:00 Only Vesta 78018.1.1 ity of 3.412.2.7 [place] .3.792052 MD Correa8 [facility] 2020-11-13 2020-11-13 Orders Galileo, 1.2.840.1 [id number] Univers 00:00:00 00:00:00 Only Yanet R 86296.1.1 it y of 3.412.2.7 [place] .3.108811 MD Correa8 [facility] 2020-11-12 2020-11-12 Orders Beck Martines 1.2.840.1 [id number] [id number] Univers 00:00:00 00:00:00 Only L 28900.1.1 ity of 3.412.2.7 [place] .3.893141 MD Correa8 [facility] 2020-11-10 2020-11-10 Inpatient RACHEL BLAKE MDA [facility] [id number] 07:27:45 07:36:25 [facility] so 2020-11-10 2020-11-10 Inpatient RACHEL BLAKE MDA [facility] [id number] MD 05:05:38 05:30:57 [facility] 2020-11-09 2020-11-09 Orders Breezy, 1.2.840.1 [id number] Univers 00:00:00 00:00:00 Only Mishel 44151.1.1 ity of 3.412.2.7 [place] .3.717076 MD Correa8 [facility] 2020-11-05 2020-11-05 Telephone Yue, 1.2.840.1 [id number] [id number] Univers 00:00:00 00:00:00 Evi 96617.1.1 it y of 3.412.2.7 [place] .3.565254 MD Pura archuleta [facility] 2020-11-03 2020-11-03 Inpatient RACHEL SMITH JUDITH WONG [id number] MD 17:09:05 17:11:49 DRU archuleta 2020-11-03 2020-11-03 Orders Hayden, 1.2.840.1 [id number] Univers 00:00:00 00:00:00 Only Kristina 64507.1.1 ity of 3.412.2.7 [place] .3.420677 MD Correa8 Camryn archuleta [facility] 2020-11-02 2020-11-02 Inpatient RACHEL COYNE JUDITH WONG [id number] 09:12:55 11:22:21 CJ archuleta 2020-10-30 2020-10-30 Orders Francisca, 1.2.840.1 [id number] Univers 00:00:00 00:00:00 Only Geena 39122.1.1 ity of 3.412.2.7 [place] .3.384387 MD Correa8 Camryn archuleta [facility] 2020-10-29 2020-10-29 Inpatient RACHEL BLAKEJUDITH TORRES MDA [id number] 19:40:38 20:05:18 KRISTINA archuleta 2020-10-29 2020-10-29 Inpatient RACHEL SMITH JUDITH WONG [id number] MD 01:03:56 01:04:07 DRU archuleta 2020-10-29 2020-10-29 Orders Kandaneelam, 1.2.840.1 [id number] Univers 00:00:00 00:00:00 Only Denny 68375.1.1 ity of 3.412.2.7 [place] .3.850182 MD Correa8 Camryn archuleta [facility] 2020-10-27 2020-10-27 Ancillary RACHEL Blake, 1.2.840.1 [id number] [id number] Univers 20:00:00 20:05:00 Procedure Kristina 37100.1.1 i ty of 3.412.2.7 [place] .3.098785 .8 [facility] 2020-10-27 2020-10-27 Inpatient RACHEL SMITH MDA MDA [id number] 13:50:26 13:50:31 [facility] Herman o geremias 2020-10-26 2020-10-26 Inpatient RACHEL SMITH MDA MDA [id number] 14:48:05 14:48:09 [facility] Herman o geremias 2020-10-26 2020-10-26 Orders Nas, 1.2.840.1 [id number] Univers 00:00:00 00:00:00 Only Mari Gallagher 70907.1.1 ity of 3.412.2.7 [place] .3.604951 .8 [facility] 2020-10-23 2020-10-23 Orders Guzman 1.2.840.1 [id number] Univers 00:00:00 00:00:00 Only Cj 87275.1.1 ity of 3.412.2.7 [place] .3.086556 .8 [facility] 2020-10-22 2020-10-22 Inpatient RANDOLPH BEAULIEU MDA MDA [id number] 20:34:15 21:15:34 Herman o geremias 2020-10-15 2020-10-15 Inpatient RACHEL SMITH, MDA MDA [id number] 14:20:34 14:20:37 [facility] Herman o geremias 2020-10-13 2020-10-13 Inpatient RACHEL SMITH MDA MDA [id number] 13:41:07 13:41:09 [facility] Herman o geremias 2020-10-10 2020-10-10 Inpatient RACHEL PATEL, MDA MDA [id number] 14:30:49 14:34:36 KIARA Harden so n 2020-10-05 2020-10-05 Inpatient RACHEL KRUGER, MDA MDA [id number] 21:05:33 21:30:04 MIGDALIA Harden so n 2020-10-02 2020-10-02 Orders Darrell, 1.2.840.1 [id number] Univers 00:00:00 00:00:00 Only Kylie Yu 82949.1.1 ity of 3.412.2.7 [place] .3.513872 .8 [facility] 2020-09-30 2020-09-30 Inpatient RACHEL QUEEN, MDA MDA [id number] 20:34:19 21:12:40 JURGEN Herman o n 2020-09-30 2020-09-30 Inpatient RACHEL WILLAMS, MDA MDA [id number] 16:35:16 16:35:21 CHANO Herman o n 2020-09-30 2020-09-30 Inpatient EL RANDOLPH PAYNE MDA MDA [id number] 14:38:47 15:31:40 Herman o geremias 2020-09-30 2020-09-30 Inpatient EL IMER, MDA MDA [id number] 14:21:19 15:31:37 CHANO Herman o n 2020-09-29 2020-09-29 Travel 1.2.840.[id number] [facility] 00:00:00 00:00:00 41493.1.1 350.1.13.41 ity of 3.412.2.[place] .[place].895[place] 084.8 .8 [facility] 2020-09-17 2020-09-23 Inpatient RACHEL BLAKE, MDA Lymphoma/My [id number] 12:22:00 17:54:00 [facility] Warder [facility] 2020-09-23 2020-09-23 Inpatient RACHEL BLAKE, MDA MDA [id number] 17:09:44 17:43:35 [facility] 2020-09-23 2020-09-23 Inpatient RACHEL BLAKE, MDA MDA [id number] 17:24:14 17:24:18 PREMINESH Dereck so n 2020-09-23 2020-09-23 Inpatient RACHEL PRIEST, MDA MDA [id number] 14:55:27 15:19:17 ESTELLA Warders o n 2020-09-18 2020-09-18 Inpatient RACHEL SMITH, MDA MDA [id number] 20:07:46 20:07:49 DRU archuleta 2020-09-17 2020-09-17 Inpatient RACHEL CAMPOS, MDA MDA [id number] MD 22:31:02 23:36:29 ELISA archuleta 2020-09-17 2020-09-17 Inpatient RACHEL BLAKE, MDA MDA [id number] MD 19:51:09 19:51:13 KRISTINA Harden so n 2020-09-16 2020-09-16 Outpatient EL SARAH, MDA MDA [id number] 12:54:09 16:41:32 DRU archuleta 2020-09-16 2020-09-16 Outpatient RACHEL DOMINIC SON, MDA MDA [id number] 10:58:41 10:58:41 MILAGRO archuleta 2020-09-16 2020-09-16 Outpatient RACHEL ALDRICH, MDA MDA [id number] 09:08:16 09:08:16 JESENIA archuleta 2020-09-15 2020-09-15 Outpatient EL ZEINAB, MDA MDA [id number] 18:51:00 23:59:00 NAS archuleta 2020-09-15 2020-09-15 Outpatient EL ZEINAB, MDA MDA [id number] 18:38:00 18:50:00 NAS archuleta 2020-09-11 2020-09-11 Emergency ER [facility] Emergency [id number] [facility] 09:39:00 09:39:00 2020-09-07 2020-09-07 Emergency ER [facility] Emergency [id number] [facility] 13:22:00 13:22:00 2020-09-07 2020-09-07 Outpatient RACHEL ALFARO JR, MDA MDA [id number] 12:27:14 12:27:14 MILAGRO archuleta 2020-09-07 2020-09-07 Outpatient EL MDA MDA [id number] 12:21:08 12:21:08 Herman archuleta 2020-09-05 2020-09-05 Outpatient RACHEL EDERBRUCE, MDA MDA [id number] 13:30:27 13:43:02 ANGELO archuleta 2020-08-18 2020-08-18 Outpatient STLMLC STLMLC [id number] Common 00:00:00 00:00:00 [facility] 2020-08-17 2020-08-17 Outpatient STLMLC STLMLC [id number] Common 00:00:00 00:00:00 [facility] 2020-08-13 2020-08-13 Outpatient STLMLC STLMLC [id number] Common 00:00:00 00:00:00 [facility] 2020-07-13 2020-07-13 Outpatient STLMLC STLMLC [id number] Common 00:00:00 00:00:00 [facility] 2020-06-19 2020-06-19 Outpatient STLMLC STLMLC [id number] Common 00:00:00 00:00:00 [facility] 2020-05-08 2020-05-08 Outpatient STLMLC STLMLC [id number] Common 00:00:00 00:00:00 [facility] 2020-05-01 2020-05-01 Outpatient STLMLC STLMLC [id number] Common 00:00:00 00:00:00 [facility] 2020-04-29 2020-04-29 Outpatient STLMLC STLMLC [id number] Common 00:00:00 00:00:00 [facility] 2020-04-15 2020-04-15 Outpatient STLMLC STLMLC [id number] Common 00:00:00 00:00:00 [facility] 2020-03-02 2020-03-02 Outpatient STLMLC STLMLC [id number] Common 00:00:00 00:00:00 [facility] 2020-02-13 2020-02-13 Outpatient STLMLC STLMLC [id number] Common 00:00:00 00:00:00 [facility] 2020-01-30 2020-01-30 Outpatient Jose CASTAÑEDA [facility] [id number] Univers 14:00:00 14:00:00 AFIA camara [facility] 2020-01-29 2020-01-29 Outpatient NICOLE SMITH [facility] 10 [id number] Univers 12:15:00 12:15:00 NICOLE CHEEK i ty of [facility] 2020-01-29 2020-01-29 Laboratory Only, [facility] Test [facility] 1.2.840. 114 [id number] Univers 10:22:41 10:37:41 Only Nicole [place] 350.1.13.10 ity of [place] [phone] [address] 2020-01-29 2020-01-29 Laboratory Only, [facility] 1.2.840.114 [id number] 10:22:41 10:37:41 Only Test [place] 350.1.13.10 [place] 4.2.7.[address] [place] [id number] [facility] 2020-01-27 2020-01-27 Outpatient R NICOLE CHEEK [facility] 10 [id number] Univers 09:45:00 09:45:00 NICOLE CHEEK i ty of [facility] 2020-01-21 2020-01-21 Outpatient STLMLC STLMLC [id number] Common 00:00:00 00:00:00 [facility] 2020-01-21 2020-01-21 Outpatient STLMLC STLMLC [id number] Common 00:00:00 00:00:00 [facility] 2020-01-10 2020-01-10 [facility] 1.2.334.552 [id number] Univers 00:00:00 00:00:00 Nicole [place] 350.1.13.10 i ty of [place] [phone] Ak dical [address] 2020-01-10 2020-01-10 Telephone Willy [facility] 1.2.970.771 [id number] 00:00:00 00:00:00 Shiholden [place] 350.1.13.10 [place] 4.2.7.2.686 Professio [phone] [address] 2019-10-11 2019-10-11 Outpatient R NICOLE CHEEK [facility] 10 [id number] Univers 10:40:00 10:40:00 NICOLE CHEEK i ty of [facility] 2019-09-19 2019-09-19 Orders Doctor SALLY 1.2.840.114 [id number] Univers 00:00:00 00:00:00 Only Unassigned, SAMANTHA 350.1.13.10 ity of [place] [facility] 4.2.7.2.686 [place] [phone] [address] 2019-07-17 2019-07-17 Orders Doctor SALLY 1.2.840.114 [id number] Univers 00:00:00 00:00:00 Only Unassigned, SAMANTHA 350.1.13.10 ity of [place] [facility] 4.2.7.2.686 [place] [phone] [address] 2019-07-11 2019-07-11 Outpatient R NICOLE CHEEK [facility] 10 [id number] Univers 10:40:00 10:40:00 NICOLE CHEEK i ty of [facility] 2019-07-11 2019-07-11 Telemedici Willy [facility] 1.2.840.114 [id number] Univers 08:05:50 08:25:50 ne Visit Nicole Hooks 350.1.13.10 it[place] of [place] [phone] [address] 2019-04-25 2019-04-25 [facility] 1.2.840.114 [id number] Univers 11:25:55 14:54:38 Visit Nicoel [place] 350.1.13.10 i [id number] [phone] [address] 2019-04-25 2019-04-25 Telephone [facility] [id number] [employer] 00:00:00 00:00:00 Nicole Hooks [id number] [id number] [phone] [address] 2018-12-06 2018-12-06 [facility] [id number] [employer] 09:26:39 10:12:15 [facility] [place] [id number] [id number] [phone] Ak dical nal 5 [facility] 2018-08-31 2018-08-31 Telephone Willy MEEVITA [id number] Univers 00:00:00 00:00:00 Nicole Hooks [id number] [id number] [phone] Ak dical nal 5 [facility] 2018-01-16 2018-01-18 Outside nullFlavo [facility] [id number] Memoria 18:43:00 04:59:59 Medical r Cardiology 00 l Records [facility] 2018-01-16 2018-01-18 Outside [facility] [id number] Memoria 18:43:00 04:59:59 Medical r Cardiology 00 l Records [facility] 2018-01-16 2018-01-17 Outpatient [facility] [id number] 13:43:00 23:59:59 00 2016-06-15 2016-07-01 Inpatient [facility] [id number] Memoria 18:52:00 00:05:00 r Ty 81 l [facility] 2016-06-15 2016-07-01 Inpatient [facility] [id number] Memoria 18:52:00 00:05:00 r Ty 81 l [facility] 2016-06-15 2016-06-30 Outpatient Eugenia Benedict [facility] [id number] 13:52:00 19:05:00 Ana 81 Results Test Description Test Time Test Comments Results Result Comments Source AFB Culture w/Smear 2020-12-11 01:41:50 Test Item Value Reference Range Interpretation Comme nts Final Report (test code = 8488) Acid fast bacilli isolatedIdentific ation 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 The sequencing procedure was developed and itsperformance characteristics determined by [facility] microbiology laboratory. It has not been cleared orapproved by the U.[place]. Food and Drug Administration Path Review - AFB (test code = 8477) The results have been reviewed and A electronically signed by Pathologist:JYOTI MCCALL MD #[id number] Acid Fast Stain Truant (test code = No Acid Fast Bacilli seen in direct smear A 93838-1) DARCI (test code = DARCI) And RUL Lab Interpretation (test code = Abnormal 28401-2) [facility] w/[id number] 01:41:50 Test Item Value Reference Interpretation Comments Range Final Report (test Acid fast bacilli A code = 8488) isolatedIdentification 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 The sequencing procedure was developed and itsperformance characteristics determined by [facility] microbiology laboratory. It has not been cleared orapproved by the U.S. Food and Drug Administration Path Review - AFB The results have been A (test code = 8477) reviewed and electronically signed by Pathologist:JYOTI MCCALL MD #[id number] Acid Fast Stain No Acid Fast Bacilli seen A Truant (test code = in direct smear 09629-2) DARCI (test code = And RUL DARCI) Lab Interpretation Abnormal (test code = 66374-7) [facility] w/Hdzzl9254-34-89 01:41:50 Test Item Value Reference Interpretation Comments Range Final Report (test Acid fast bacilli A code = 8488) isolatedIdentification 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 The sequencing procedure was developed and itsperformance characteristics determined by [facility]ology [facility]. It has not been cleared orapproved by the U.S. Food and Drug Administration Path Review - AFB The results have been A (test code = 8477) reviewed and electronically signed by Pathologist:JYOTI MCCALL MD #[id number] Acid Fast Stain No Acid Fast Bacilli seen A Truant (test code = in direct smear 58110-8) DARCI (test code = And RUL DARCI) Lab Interpretation Abnormal (test code = 86467-6) [facility] Fkcjpmf2788-02-06 19:30:21 Test Item Value Reference Range Interpretation Comments Final Report (test No growth code = 8488) Path Review - Immunity and antibiotic Bottle/Isolator use may render culture (test code = 8499) negative. Ongoing infection requires repeat culture. The results have been reviewed and electronically signed by Pathologist:aMry Last MD, PhD #[id number] DARCI (test code = From PICC line please DARCI) [facility] [id number] 19:30:21 Test Item Value Reference Range Interpretation Comments Final Report (test No growth code = 8488) Path Review - Immunity and antibiotic Bottle/Isolator use may render culture (test code = 8499) negative. Ongoing infection requires repeat culture. The results have been reviewed and electronically signed by Pathologist:Mary Last MD, PhD #[id number] DARCI (test code = From PICC line please DARCI) [facility] [id number] 19:30:21 Test Item Value Reference Range Interpretation Comments Final Report (test No growth code = 8488) Path Review - Immunity and antibiotic Bottle/Isolator use may render culture (test code = 8499) negative. Ongoing infection requires repeat culture. The results have been reviewed and electronically signed by Pathologist:Mary Last MD, PhD #[id number] DARCI (test code = From PICC line please DARCI) [facility]21[facility] 14:25:51 Test Item Value Reference Range Interpretation Comments Total Cells (test code 115 = 7642) Neutrophil % (test 82.0 % 42.0-66.0 H The Neutr ophil count code = 6491) includes Bands. Lymphocyte % (test 2.0 % 24.0-44.0 L code = 6194) Monocyte % (test code 11.0 % 2.0-7.0 H = 6422) Metamyelocyte % (test 5.0 % See_Comment H The Ak tamyelocyte code = 6399) count includes Myelocytes. [Automated mess age] The system [employer] generated this result transmitted ref erence range: <=0.0. T he reference range was not used to int erpret this result as normal/abnormal . NRBC (test code = 1.0 See_Comment H [Automate d message] 6942) The system [employer] generated this result transmitted ref erence range: [...] (test code = Present Not Present A 2732) Slide Comments (test See Note A Platele t morphology code = 5447) normal. Lab Interpretation Abnormal (test code = 24415-0) [facility] EnjpsaJuutyqwliere0276-57-51 14:25:51 Test Item Value Reference Range Interpretation [...] includes Myelocytes. [Automated mess age] The system [employer] generated this result transmitted ref erence range: <=0.0. T he reference range was not used to int erpret this result as normal/abnormal . NRBC (test code = 1.0 See_Comment H [Automate d message] 1342) The system [employer] generated this result transmitted ref erence range: <=0.0. T CS Disco reference range was not used to int [...] normal. Lab Interpretation Abnormal (test code = 72841-8) [facility] 14:25:51 Test Item Value Reference Range Interpretation [...] includes Myelocytes. [Automated mess age] The system [employer] generated this result transmitted ref erence range: <=0.0. T he reference range was not used to int erpret this result as normal/abnormal . NRBC (test code = 1.0 See_Comment H [Automate d message] 2772) The system [employer] generated this result transmitted ref erence range: [...] (test code Few Not Seen A = 8585) Anisocytosis (test Present Not Present A code = 4811) Ovalocyte (test code = Present Not Present A 6584) Tear Drop (test code = Present Not Present A 7602) Slide Comments (test See Note A Platele t morphology code = 5447) normal. Lab Interpretation Abnormal (test code = 52445-1) [facility]WIS0068-32-23 14:25:49 Test Item Value Reference Range Interpretation Comments WBC (test code = 22.7 K/uL 4.0-11.0 H 6690-2) RBC (test code = 789-8) 2.92 See_Comment L [Au tomated message] The system [facility] [place] generated this result transmitted ref erence range: 4.50 - 6 .00 M/uL. The refer ence range was not u sed to interpret this result as normal/abnor mal. Hgb (test code = 718-7) 8.7 See_Comment L [Au tomated message] The system [facility] [place] generated this result transmitted ref erence range: [...] See_Comment [Automate d message] 786-4) The system [employer] generated this result transmitted ref erence range: 31.0 - 3 6.0 gm/dL. The refe rence range was not u sed to interpret this result as normal/abnor mal. RDW-SD (test code = 55.0 fL 35.1-46.3 H 27987-8) RDW-CV (test code = 16.5 % 12.0-15.5 [...] cell differential. [Automated mess age] The system [employer] generated this result transmitted ref erence range: <=0.0. T he reference range was not used to int erpret this result as normal/abnormal . Lab Interpretation Abnormal (test code = 25822-9) [facility] [place].TNU5781-24-43 14:25:49 Test Item Value Reference Range Interpretation Comments WBC (test code = 22.7 K/uL 4.0-11.0 H 6690-2) RBC (test code = 789-8) 2.92 See_Comment L [Au tomated message] The system [employer] generated this result transmitted ref erence range: 4.50 - 6 .00 M/uL. The refer ence range was not u sed to interpret this result as normal/abnor mal. Hgb (test code = 718-7) 8.7 See_Comment L [Au tomated message] The system [employer] generated this result transmitted ref erence range: [...] See_Comment [Automate d message] 786-4) The system [employer] generated this result transmitted ref erence range: 31.0 - 3 6.0 gm/dL. The refe rence range was not u sed to interpret this result as normal/abnor mal. RDW-SD (test code = 55.0 fL 35.1-46.3 H 76282-0) RDW-CV (test code = 16.5 % 12.0-15.5 [...] cell differential. [Automated mess age] The system [employer] generated this result transmitted ref erence range: <=0.0. T he reference range was not used to int erpret this result as normal/abnormal . Lab Interpretation Abnormal (test code = 15867-8) [facility] [place].[id number] 14:25:49 Test Item Value Reference Range Interpretation Comments WBC (test code = 22.7 K/uL 4.0-11.0 H 6690-2) RBC (test code = 789-8) 2.92 See_Comment L [Au tomated message] The system [employer] generated this result transmitted ref erence range: 4.50 - 6 .00 M/uL. The refer ence range was not u sed to interpret this result as normal/abnor mal. Hgb (test code = 718-7) 8.7 See_Comment L [Au tomated message] The system [employer] generated this result transmitted ref erence range: [...] See_Comment [Automate d message] 786-4) The system [employer] generated this result transmitted ref erence range: 31.0 - 3 6.0 gm/dL. The refe rence range was not u sed to interpret this result as normal/abnor mal. RDW-SD (test code = 55.0 fL 35.1-46.3 H 01189-9) RDW-CV (test code = 16.5 % 12.0-15.5 [...] cell differential. [Automated mess age] The system [employer] generated this result transmitted ref erence range: <=0.0. T he reference range was not used to int erpret this result as normal/abnormal . Lab Interpretation Abnormal (test code = 45081-0) [facility] [id number] 09:16:35 Test Item Value Reference Range Interpretation Comments Sodium Lvl (test code = 140 See_Comment [Au tomated message] 8307) The system [employer] generated this result transmitted ref erence range: 136 - 14 5 mEq/L. The refe rence range was not u sed to interpret this result as normal/abnor mal. Potassium Lvl (test code 4.2 See_Comment [A utomated message] = 0089) The system [employer] generated this result transmitted ref erence range: 3.5 - 5. 1 mEq/L. The refe rence range was not u sed to interpret this result as normal/abnor mal. Chloride (test code = 100 See_Comment [Auto mated message] 7244) The system [employer] generated this result transmitted ref erence range: 98 - 107 mEq/L. The refe rence range was not u sed to interpret this result as normal/abnor mal. CO2 (test code = 5227) 30 See_Comment H [Aut omated message] The system [employer] generated this result transmitted ref erence range: 22 - 29 mEq/L. The reference r louis was not used to interpret this result as normal/abnor mal. Anion Gap (test code = 10 See_Comment [Aut omated message] 0458) The system [employer] generated this result transmitted ref erence range: 4 - 14 m Eq/L. The reference r louis was not used to interpret this result as normal/abnor mal. Lab Interpretation (test Abnormal code = 91394-6) [facility] [id number] 09:16:35 Test Item Value Reference Range Interpretation Comments Sodium Lvl (test code = 140 See_Comment [Au tomated message] 5789) The system [employer] generated this result transmitted ref erence range: 136 - 14 5 mEq/L. The refe rence range was not u sed to interpret this result as normal/abnor mal. Potassium Lvl (test code 4.2 See_Comment [A utomated message] = 6854) The system [employer] generated this result transmitted ref erence range: 3.5 - 5. 1 mEq/L. The refe rence range was not u sed to interpret this result as normal/abnor mal. Chloride (test code = 100 See_Comment [Auto mated message] 9608) The system [employer] generated this result transmitted ref erence range: 98 - 107 mEq/L. The refe rence range was not u sed to interpret this result as normal/abnor mal. CO2 (test code = 5227) 30 See_Comment H [Aut omated message] The system [employer] generated this result transmitted ref erence range: 22 - 29 mEq/L. The reference r louis was not used to interpret this result as normal/abnor mal. Anion Gap (test code = 10 See_Comment [Aut omated message] 4205) The system [employer] generated this result transmitted ref erence range: 4 - 14 m Eq/L. The reference r louis was not used to interpret this result as normal/abnor mal. Lab Interpretation (test Abnormal code = 52997-4) [facility] [place] Vqhqd3285-96-80 09:16:35 Test Item Value Reference Range Interpretation Comments Sodium Lvl (test code = 140 See_Comment [Au tomated message] 6014) The system [employer] generated this result transmitted ref erence range: 136 - 14 5 mEq/L. The refe rence range was not u sed to interpret this result as normal/abnor mal. Potassium Lvl (test code 4.2 See_Comment [A utomated message] = 6854) The system [employer] generated this result transmitted ref erence range: 3.5 - 5. 1 mEq/L. The refe rence range was not u sed to interpret this result as normal/abnor mal. Chloride (test code = 100 See_Comment [Auto mated message] 1627) The system [employer] generated this result transmitted ref erence range: 98 - 107 mEq/L. The refe rence range was not u sed to interpret this result as normal/abnor mal. CO2 (test code = 5227) 30 See_Comment H [Aut omated message] The system [employer] generated this result transmitted ref erence range: 22 - 29 mEq/L. The reference r louis was not used to interpret this result as normal/abnor mal. Anion Gap (test code = 10 See_Comment [Aut omated message] 9325) The system [employer] generated this result transmitted ref erence range: 4 - 14 m Eq/L. The reference r louis was not used to interpret this result as normal/abnor mal. Lab Interpretation (test Abnormal code = 49351-7) [facility] [id number] 09:16:34 Test Item Value Reference Range Interpretation [...] above 28 g/L. [Automated message] The system [employer] generated this result transmitted ref erence range: [...] (test 0.2 mg/dL 0.0-0.9 code = 5095) [facility] Pvjhaspgd5659-42-22 09:16:34 Test Item Value Reference Range Interpretation [...] above 28 g/L. [Automated message] The system [employer] generated this result transmitted ref erence range: [...] (test 0.2 mg/dL 0.0-0.9 code = 5095) [facility] Xrmdfytsx0364-03-21 09:16:34 Test Item Value Reference Range Interpretation [...] above 28 g/L. [Automated message] The system [employer] generated this result transmitted ref erence range: [...] (test 0.2 mg/dL 0.0-0.9 code = 5095) [facility]osph[facility] [id number] 09:16:33 Test Item Value Reference Range Interpretation Comments Phosphorus (test code = 6817) 3.5 mg/dL 2.5-4.5 [facility] [id number] 09:16:33 Test Item Value Reference Range Interpretation Comments Phosphorus (test code = 6817) 3.5 mg/dL 2.5-4.5 [facility] Uqqjj7077-48-25 09:16:33 Test Item Value Reference Range Interpretation Comments Phosphorus (test code = 6817) 3.5 mg/dL 2.5-4.5 [facility]LDH2021-[facility] 09:16:31 Test Item Value Reference Range Interpretation Comments LDH (test code = 6111) 336 U/L 135-225 H Resul ts greater than 1651 U/L may no t be reliable due to matrix effect w ith extended diluti on as it exceeds the colorist formulator s recommended l imit. Caution should be exercised when interpreting matute ch values and done in conjunction wit clinical contex t. Lab Interpretation (test Abnormal code = 66377-2) [facility]21[facility] 09:16:31 Test Item Value Reference Range Interpretation Comments LDH (test code = 6111) 336 U/L 135-225 H Resul ts greater than 1651 U/L may no t be reliable due to matrix effect w ith extended diluti on as it exceeds the colorist formulator s recommended l imit. Caution should be exercised when interpreting matute ch values and done in conjunction wit clinical contex t. Lab Interpretation (test Abnormal code = 76657-1) [facility]21[facility]21 09:16:31 Test Item Value Reference Range Interpretation Comments LDH (test code = 6111) 336 U/L 135-225 H Resul ts greater than 1651 U/L may no t be reliable due to matrix effect w ith extended diluti on as it exceeds the colorist formulator s recommended l imit. Caution should be exercised when interpreting matute ch values and done in conjunction wit clinical contex t. Lab Interpretation (test Abnormal code = 63100-5) [facility] SouthGlomerular Filtration Rate 2020-11-14 09:16:30 Test Item Value [...] failure <15 [Automated mess age] The system [employer] generated this result transmitted ref erence range: [...] failure <15 [Automated mess age] The system [employer] generated this result transmitted ref erence range: >=60 mL/min/1.73 sq. m. The reference range was not used to int erpret this result as normal/abnormal . Lab Interpretation Abnormal (test code = 55385-3) [facility] [place]Glomerular Filtration Rate 2020-11-14 09:16:30 Test Item Value [...] failure <15 [Automated mess age] The system [employer] generated this result transmitted ref erence range: [...] failure <15 [Automated mess age] The system [employer] generated this result transmitted ref erence range: >=60 mL/min/1.73 sq. m. The reference range was not used to int erpret this result as normal/abnormal . Lab Interpretation Abnormal (test code = 01268-2) [facility] Fil[facility] Rate 2020-11-14 09:16:30 Test Item Value [...] failure <15 [Automated mess age] The system [employer] generated this result transmitted ref erence range: [...] pat ients 18 and older. According to cindy e [employer]'s Ki dney Disease [...] failure <15 [Automated mess age] The system [employer] generated this result transmitted ref erence range: >=60 mL/min/1.73 sq. m. The reference range was not used to int erpret this result as normal/abnormal . Lab Interpretation Abnormal (test code = 46213-0) [facility] SouthCalcium [id number] 09:16:29 Test Item Value Reference Range Interpretation Comments Calcium Lvl (test code = 5258) 8.3 mg/dL 8.4-10.2 L Lab Interpretation (test code = Abnormal 90785-5) [facility] [id number] 09:16:29 Test Item Value Reference Range Interpretation Comments Calcium Lvl (test code = 5258) 8.3 mg/dL 8.4-10.2 L Lab Interpretation (test code = Abnormal 06421-6) [facility] [id number] 09:16:29 Test Item Value Reference Range Interpretation Comments Calcium Lvl (test code = 5258) 8.3 mg/dL 8.4-10.2 L Lab Interpretation (test code = Abnormal 02257-8) [facility] SouthUric [id number] 09:16:28 Test Item Value Reference Range Interpretation Comments Uric Acid (test code = 7955) 8.5 mg/dL 3.4-7.0 H Lab Interpretation (test code = Abnormal 80735-1) [facility] [id number] 09:16:28 Test Item Value Reference Range Interpretation Comments Uric Acid (test code = 7955) 8.5 mg/dL 3.4-7.0 H Lab Interpretation (test code = Abnormal 27534-3) [facility] [id number] 09:16:28 Test Item Value Reference Range Interpretation Comments Uric Acid (test code = 7955) 8.5 mg/dL 3.4-7.0 H Lab Interpretation (test code = Abnormal 71026-1) [facility]in [id number] 09:16:27 Test Item Value Reference Range Interpretation Comments Albumin Lvl (test code = 3.1 See_Comment L [A utomated message] 4763) The system [employer] generated this result transmitted ref erence range: 3.5 - 5. 2 gm/dL. The refe rence range was not u sed to interpret this result as normal/abnor mal. Lab Interpretation (test Abnormal code = 78488-7) [facility] [id number] 09:16:27 Test Item Value Reference Range Interpretation Comments Albumin Lvl (test code = 3.1 See_Comment L [A utomated message] 4763) The system [employer] generated this result transmitted ref erence range: 3.5 - 5. 2 gm/dL. The refe rence range was not u sed to interpret this result as normal/abnor mal. Lab Interpretation (test Abnormal code = 25596-3) [facility] Utmps4706-90-09 09:16:27 Test Item Value Reference Range Interpretation Comments Albumin Lvl (test code = 3.1 See_Comment L [A utomated message] 4763) The system [employer] generated this result transmitted ref erence range: 3.5 - 5. 2 gm/dL. The refe rence range was not u sed to interpret this result as normal/abnor mal. Lab Interpretation (test Abnormal code = 62055-4) [facility]Total [id number] 09:16:26 Test Item Value Reference Range Interpretation Comments Total Protein (test code = 7649) 6.2 g/dL 6.4-8.3 L Lab Interpretation (test code = Abnormal 27644-6) [facility] Meinlqf8699-86-45 09:16:26 Test Item Value Reference Range Interpretation Comments Total Protein (test code = 7649) 6.2 g/dL 6.4-8.3 L Lab Interpretation (test code = Abnormal 30026-6) [facility] Xwmcybv8446-41-57 09:16:26 Test Item Value Reference Range Interpretation Comments Total Protein (test code = 7649) 6.2 g/dL 6.4-8.3 L Lab Interpretation (test code = Abnormal 59867-7) [facility]artate Aminotransferase 2020-11-14 09:16:25 Test Item Value Reference Range Interpretation Comments AST (test code = 19 U/L See_Comment [Automated message] The 4731) system which ge nerated this result transmit jigar reference range : <=40. The reference range was not used to interpr et this result as sonido l/abnormal. [facility]art[facility] Aminotransferase 2020-11-14 09:16:25 Test Item Value Reference Range Interpretation Comments AST (test code = 19 U/L See_Comment [Automated message] The 4731) system which ge nerated this result transmit jigar reference range : <=40. The reference range was not used to interpr et this result as sonido l/abnormal. [facility]art[facility] Aminotransferase 2020-11-14 09:16:25 Test Item Value Reference Range Interpretation Comments AST (test code = 19 U/L See_Comment [Automated message] The 4731) system which ge nerated this result transmit jigar reference range : <=40. The reference range was not used to interpr et this result as sonido l/abnormal. [facility]esium Dmgqo0479-36-18 09:16:24 Test Item Value Reference Range Interpretation Comments Magnesium (test code = 6359) 1.8 mg/dL 1.6-2.6 [facility] Ieupo6448-27-37 09:16:24 Test Item Value Reference Range Interpretation Comments Magnesium (test code = 6359) 1.8 mg/dL 1.6-2.6 [facility] Gsozf0998-84-64 09:16:24 Test Item Value Reference Range Interpretation Comments Magnesium (test code = 6359) 1.8 mg/dL 1.6-2.6 [facility] SouthAlkaline Shlcnicizbo6914-36-29 09:16:22 Test Item Value Reference Range Interpretation Comments Alk Phos (test code = 4768) 249 U/L 40-129 H Lab Interpretation (test code = Abnormal 62253-0) [facility]kaline Hfrckafjwkh4075-58-62 09:16:22 Test Item Value Reference Range Interpretation Comments Alk Phos (test code = 4768) 249 U/L 40-129 H Lab Interpretation (test code = Abnormal 24365-9) [facility] [id number] 09:16:22 Test Item Value Reference Range Interpretation Comments Alk Phos (test code = 4768) 249 U/L 40-129 H Lab Interpretation (test code = Abnormal 29552-4) [facility] [id number] 09:16:21 Test Item Value Reference Range Interpretation Comments Glucose Level (test 93 mg/dL 70-99 Effectiv e 10/21/15, the code = 5699) glucose referen ce intervals have been updated based o n [employer] tia delines (Standards of M edical Care in Diabete s 2016. Diabetes Care 2 016; 39: S13-S22).Fastin g blood glucose:Normal: 70-99 mg/dLImpaired f asting glucose (increa sed risk for diabetes or pre-diabetes): 100-125 mg/dLDiabetes m ellitus: >/=126 mg/dL Ra ndom blood glucose:N ormal: 70-199 mg/dLNot e: Random glucose >100 mg /dL is associated with increased risk for diabetes [facility] Afypp4205-09-30 09:16:21 Test Item Value Reference Range Interpretation Comments Glucose Level (test 93 mg/dL 70-99 Effectiv e 10/21/15, the code = 5699) glucose referen ce intervals have been updated based o n [employer] tia delines (Standards of M edical Care in Diabete s 2016. Diabetes Care 2 016; 39: S13-S22).Fastin g blood glucose:Normal: 70-99 mg/dLImpaired f asting glucose (increa sed risk for diabetes or pre-diabetes): 100-125 mg/dLDiabetes m ellitus: >/=126 mg/dL Ra ndom blood glucose:N ormal: 70-199 mg/dLNot e: Random glucose >100 mg /dL is associated with increased risk for diabetes [facility] [id number] 09:16:21 Test Item Value Reference Range Interpretation Comments Glucose Level (test 93 mg/dL 70-99 Effectiv e 10/21/15, the code = 5699) glucose referen ce intervals have been updated based o n [employer] tia delines (Standards of M edical Care in Diabete s 2016. Diabetes Care 2 016; 39: S13-S22).Fastin g blood glucose:Normal: 70-99 mg/dLImpaired f asting glucose (increa sed risk for diabetes or pre-diabetes): 100-125 mg/dLDiabetes m ellitus: >/=126 mg/dL Ra ndom blood glucose:N ormal: 70-199 mg/dLNot e: Random glucose >100 mg /dL is associated with increased risk for diabetes [facility] 09:16:20 Test Item Value Reference Range Interpretation Comments ALT (test code = 16 U/L See_Comment [Automated message] The [employer]) system which Ecato nerated this result transmit jigar reference range : <=41. The reference range was not used to interpr et this result as sonido l/abnormal. [facility] 09:16:20 Test Item Value Reference Range Interpretation Comments ALT (test code = 16 U/L See_Comment [Automated message] The [employer]) system which Ecato nerated this result transmit jigar reference range : <=41. The reference range was not used to interpr et this result as sonido l/abnormal. [facility] Test Item Value Reference Range Interpretation Comments ALT (test code = 16 U/L See_Comment [Automated message] The [employer]) system which ge nerated this result transmit jigar reference range : <=41. The reference range was not used to interpr et this result as sonido l/abnormal. [facility]Serum Kdsbwkmqop3692-21-01 09:16:19 Test Item Value Reference Range Interpretation Comments Creatinine (test code = 5399) 2.53 mg/dL 0.67-1.17 H Lab Interpretation (test code = Abnormal 44041-6) [facility]Serum Rmdmpviacy8875-43-43 09:16:19 Test Item Value Reference Range Interpretation Comments Creatinine (test code = 5399) 2.53 mg/dL 0.67-1.17 H Lab Interpretation (test code = Abnormal 88883-7) [facility]Serum Cnaslqsrrb9670-42-37 09:16:19 Test Item Value Reference Range Interpretation Comments Creatinine (test code = 5399) 2.53 mg/dL 0.67-1.17 H Lab Interpretation (test code = Abnormal 45034-3) [facility]2021-[facility] 09:16:18 Test Item Value Reference Range Interpretation Comments BUN (test code = 5055) 29 mg/dL 6-23 H Lab Interpretation (test code = Abnormal 21543-1) [facility]21-[facility]21 09:16:18 Test Item Value Reference Range Interpretation Comments BUN (test code = 5055) 29 mg/dL 6-23 H Lab Interpretation (test code = Abnormal 66030-8) [facility]21-[facility]21 09:16:18 Test Item Value Reference Range Interpretation Comments BUN (test code = 5055) 29 mg/dL 6-23 H Lab Interpretation (test code = Abnormal 74010-3) [facility] [id number] 14:30:01 Test Item Value Reference Range Interpretation Comments Final Report (test No Vancomycin resistant code = 8488) Enterococci isolated Path Review - VRE VRE absent or below limits (test code = 8485) of detection....The results have been reviewed and electronically signed by Pathologist:Jonathon Bethea MD, PhD #[id number] [facility] Ruyfmuq5876-95-14 14:30:01 Test Item Value Reference Range Interpretation Comments Final Report (test No Vancomycin resistant code = 8488) Enterococci isolated Path Review - VRE VRE absent or below limits (test code = 8485) of detection....The results have been reviewed and electronically signed by Pathologist:Jonathon Bethea MD, PhD #[id number] [facility] Rufcoro0113-72-97 14:30:01 Test Item Value Reference Range Interpretation Comments Final Report (test No Vancomycin resistant code = 8488) Enterococci isolated Path Review - VRE VRE absent or below limits (test code = 8485) of detection....The results have been reviewed and electronically signed by Pathologist:Jonathon Bethea MD, PhD #[id number] [facility] Respiratory Culture w/Gram [id number] 14:14:20 Test Item Value Reference Range Interpretation Comments Final Report (test code Moderate Yeast A = 8488) isolated Path Review (test code = Yeast is a component A 8492) of upper respiratory/oral jesse and may NOT be clinically significant. Recommend clinical correlation BEFORE requesting additional workup....The results have been reviewed and electronically signed by Pathologist:Jonathon Bethea MD, PhD #[id number] Gram Stain Report (test Few WBC's seenNo A code = 63467-1) organisms seen. Lab Interpretation (test Abnormal code = 42639-3) [facility] Respiratory Culture w/Gram Bigzh1513-50-02 14:14:20 Test Item Value Reference Range Interpretation Comments Final Report (test code Moderate Yeast A = 8488) isolated Path Review (test code = Yeast is a component A 8492) of upper respiratory/oral jesse and may NOT be clinically significant. Recommend clinical correlation BEFORE requesting additional workup....The results have been reviewed and electronically signed by Pathologist:Jonathon Bethea MD, PhD #[id number] Gram Stain Report (test Few WBC's seenNo A code = 41433-8) organisms seen. Lab Interpretation (test Abnormal code = 72401-3) [facility] Respiratory Culture w/Gram Caegp4713-44-02 14:14:20 Test Item Value Reference Range Interpretation Comments Final Report (test code Moderate Yeast A = 8488) isolated Path Review (test code = Yeast is a component A 8492) of upper respiratory/oral jesse and may NOT be clinically significant. Recommend clinical correlation BEFORE requesting additional workup....The results have been reviewed and electronically signed by Pathologist:Jonathon Bethea MD, PhD #[id number] Gram Stain Report (test Few WBC's seenNo A code = 09536-5) organisms seen. Lab Interpretation (test Abnormal code = 08138-9) [facility] Interpretation Antibody Screen [id number] 12:43:39 Test Item Value Reference Range Interpretation Comments TMP Auto Neg At the present ABSC Interp time, patient (test code = plasma shows no ____FERNANDO 7535) evidence of RBC DION,Dic tated by: alloantibodiNivia Bentley ed Date/Time: 10.26 7:43 AM CDT Tra nscribed Date/Time: 10.26 7:43 AM CDTElectronical ly Signed By: MANUELA FARRELL, on 11.13.2020 7 :43 AM [facility] Antibody Screen [id number] 12:43:39 Test Item Value Reference Range Interpretation Comments TMP Auto Neg At the present ABSC Interp time, patient (test code = plasma shows no ____FERNANDO 7535) evidence of RBC DION,Dic tated by: alloantibodiNivia Bentley ed Date/Time: 10.26 7:43 AM CDT Tra nscribed Date/Time: 10.26 7:43 AM CDTElectronical ly Signed By: MANUELA FARRELL, on 11.13.2020 7 :43 AM C [facility] Interpretation Antibody Screen [id number] 12:43:39 Test Item Value Reference Range Interpretation Comments TMP Auto Neg At the present ABSC Interp time, patient (test code = plasma shows no ____MANUELA 7535) evidence of RBC DION,Dic tated by: mervatantiadriane. MANUELA ASHLEY,Dictat ed Date/Time: 10.26 7:43 AM CDT Tra nscribed Date/Time: 10.26 7:43 AM CDTElectronical ly Signed By: MANUELA FARRELL on 11.13.2020 7 :43 AM C [facility] SouthAntibody [id number] 12:34:14 Test Item Value Reference Range Interpretation Comments ABSC. (test code = 890-4) Negative ABSC [facility] SouthAntibody [id number] 12:34:14 Test Item Value Reference Range Interpretation Comments ABSC. (test code = 890-4) Negative ABSC [facility] SouthAnt[facility]ody [id number] 12:34:14 Test Item Value Reference Range Interpretation Comments ABSC. (test code = 890-4) Negative ABSC [facility]ABORh2021-08-20 12:34:13 Test Item Value Reference Range Interpretation Comments ABORh. (test code = 882-1) A POS [facility]ABORh2021-08-20 12:34:13 Test Item Value Reference Range Interpretation Comments ABORh. (test code = 882-1) A POS [facility]ABORh2021-08-20 12:34:13 Test Item Value Reference Range Interpretation Comments ABORh. (test code = 882-1) A POS [facility] SouthClot Expiration [id number] 12:34:08 Test Item Value Reference Range Interpretation Comments T & S Expiration (test code = 11/16/2020 5318) [facility]ot Expiration [id number] 12:34:08 Test Item Value Reference Range Interpretation Comments T & S Expiration (test code = 11/16/2020 5318) [facility] Expiration [id number] 12:34:08 Test Item Value Reference Range Interpretation Comments T & S Expiration (test code = 11/16/2020 5318) [facility] Thromboplastin Time 2020-11-13 09:28:40 Test Item Value Reference Range Interpretation Comments aPTT (test code = 6773) 43.1 See_Comment H [Au tomated message] The system [employer] generated this result transmitted ref erence range: 24.7 - 3 6.8 second(s). The reference range was not used to int erpret this result as normal/abnormal . Lab Interpretation (test Abnormal code = 45579-8) [facility] Thromboplastin Time 2020-11-13 09:28:40 Test Item Value Reference Range Interpretation Comments aPTT (test code = 6773) 43.1 See_Comment H [Au tomated message] The system [employer] generated this result transmitted ref erence range: 24.7 - 3 6.8 second(s). The reference range was not used to int erpret this result as normal/abnormal . Lab Interpretation (test Abnormal code = 12333-1) [facility] Thromboplastin Time 2020-11-13 09:28:40 Test Item Value Reference Range Interpretation Comments aPTT (test code = 6773) 43.1 See_Comment H [Au tomated message] The system [employer] generated this result transmitted ref erence range: 24.7 - 3 6.8 second(s). The reference range was not used to int erpret this result as normal/abnormal . Lab Interpretation (test Abnormal code = 55567-4) [facility] SouthProthrombin Time with [id number] 09:28:39 Test Item Value Reference Range Interpretation Comments PT (test code = 6746) 16.1 See_Comment H [Auto mated message] The system [employer] generated this result transmitted ref erence range: 11.5 - 1 3.9 second(s). The reference range was not used to int erpret this result as normal/abnormal . INR (test code = 5973) 1.40 0.90-1.10 H Lab Interpretation (test Abnormal code = 87581-4) [facility] SouthProthrombin Time with [id number] 09:28:39 Test Item Value Reference Range Interpretation Comments PT (test code = 6746) 16.1 See_Comment H [Auto mated message] The system [employer] generated this result transmitted ref erence range: 11.5 - 1 3.9 second(s). The reference range was not used to int erpret this result as normal/abnormal . INR (test code = 5973) 1.40 0.90-1.10 H Lab Interpretation (test Abnormal code = 10417-3) [facility] SouthProthrombin Time with [id number] 09:28:39 Test Item Value Reference Range Interpretation Comments PT (test code = 6746) 16.1 See_Comment H [Auto mated message] The system [employer] generated this result transmitted ref erence range: 11.5 - 1 3.9 second(s). The reference range was not used to int erpret this result as normal/abnormal . INR (test code = 5973) 1.40 0.90-1.10 H Lab Interpretation (test Abnormal code = 98178-5) [facility] SouthUrea Nitrogen Vmmjw7895-16-03 23:22:37 Test Item Value Reference Range Interpretation Comments U Urea (test code = 436 mg/dL Normal r louis not 7820) available for c ollections less than 24 ho urs in duration. [facility] South[facility]rea Nitrogen [id number] 23:22:37 Test Item Value Reference Range Interpretation Comments U Urea (test code = 436 mg/dL Normal r louis not 7820) available for c ollections less than 24 ho urs in duration. [facility] South[facility] Nitrogen [id number] 23:22:37 Test Item Value Reference Range Interpretation Comments U Urea (test code = 436 mg/dL Normal r louis not 7820) available for c ollections less than 24 ho urs in duration. [facility] SouthCreatinine [id number] 23:22:36 Test Item Value Reference Range Interpretation Comments U Creatinine (test 101.0 mg/dL 40.0-278.0 The refer ence range code = 7725) listed is for f irst morning urine collection. [facility] SouthCreatinine [id number] 23:22:36 Test Item Value Reference Range Interpretation Comments U Creatinine (test 101.0 mg/dL 40.0-278.0 The refer ence range code = 7725) listed is for f irst morning urine collection. [facility] SouthCreatinine [id number] 23:22:36 Test Item Value Reference Range Interpretation Comments U Creatinine (test 101.0 mg/dL 40.0-278.0 The refer ence range code = 7725) listed is for f irst morning urine collection. [facility] [id number] 23:22:35 Test Item Value Reference Range Interpretation Comments U Sodium (test code = 28 mEq/L Normal range not available 7809) for collections less than 24 hours in dur ation. [facility] [id number] 23:22:35 Test Item Value Reference Range Interpretation Comments U Sodium (test code = 28 mEq/L Normal range not available 7809) for collections less than 24 hours in dur ation. [facility] Nsyha1934-05-01 23:22:35 Test Item Value Reference Range Interpretation Comments U Sodium (test code = 28 mEq/L Normal range not available 7809) for collections less than 24 hours in dur ation. [facility] SouthAlbumin Level [id number] 23:19:07 Test Item Value Reference Range Interpretation [...] >300 mg/g [Automated mess age] The system [employer] generated this result transmit jigar reference range : <=29. The refer ence range was not u sed to interpret th is result as normal/abnormal . Lab Interpretation Abnormal (test code = 35437-7) [facility] SouthAlbumin Level [id number] 23:19:07 Test Item Value Reference Range Interpretation [...] >300 mg/g [Automated mess age] The system [employer] generated this result transmit jigar reference range : <=29. The refer ence range was not u sed to interpret th is result as normal/abnormal . Lab Interpretation Abnormal (test code = 82325-0) [facility] South[facility]in Level [id number] 23:19:07 Test Item Value Reference Range Interpretation [...] >300 mg/g [Automated mess age] The system [employer] generated this result transmit jigar reference range : <=29. The refer ence range was not u sed to interpret th is result as normal/abnormal . Lab Interpretation Abnormal (test code = 78784-9) [facility] SouthProtein/Creatinine Ratio Urine 2020-11-11 23:19:06 Test Item Value [...] [Au tomated message] = 7805) The system [employer] generated this result transmit jigar reference range : <=0.14. The reference range was not used to interpret this result as normal/abnormal . Lab Interpretation Abnormal (test code = 92615-5) [facility]Protein/Creatinine Ratio Urine 2020-11-11 23:19:06 Test Item Value [...] [Au tomated message] = 7805) The system [employer] generated this result transmit jigar reference range : <=0.14. The reference range was not used to interpret this result as normal/abnormal . Lab Interpretation Abnormal (test code = 22901-1) [facility] SouthProtein/Creatinine Ratio Urine 2020-11-11 23:19:06 Test Item Value [...] g/g See_Comment H [Au tomated message] = 0265) The system [employer] generated this result transmit jigar reference range : <=0.14. The reference range was not used to interpret this result as normal/abnormal . Lab Interpretation Abnormal (test code = 89519-1) [facility] South[facility]inalysis with Microscopic 2020-11-11 22:56:40 Test Item Value [...] the implementation of new instrumentation in the [facility], allowing greater sensitivity of measurement. Urinalysis results reported by the [facility] using existing instrumentation, as well as Urinalysis testing performed manually or by backup methodology at the [facility] will remain relatively unchanged. New reporting parameters and units will now be reported for all campuses. Lab Interpretation Abnormal (test code = 04424-2) [facility] South[facility]inalysis with Microscopic 2020-11-11 22:56:40 Test Item Value [...] implementation of new instrumentation in the [facility] [place], allowing greater sensitivity of measurement. Urinalysis results reported by the [facility] using existing instrumentation, as well as Urinalysis testing performed manually or by backup methodology at the [facility] will remain relatively unchanged. New reporting parameters and units will now be reported for all [facility]. Lab Interpretation Abnormal (test code = 06365-2) [facility] South[facility]inalysis with Microscopic 2020-11-11 22:56:40 Test Item Value [...] implementation of new instrumentation in the [facility] [place], allowing greater sensitivity of measurement. Urinalysis results reported by the [facility] using existing instrumentation, as well as Urinalysis testing performed manually or by backup methodology at the [facility] will remain relatively unchanged. New reporting parameters and units will now be reported for all [facility]. Lab Interpretation Abnormal (test code = 99972-9) [facility]inalysis w/Microscopic if [id number] 22:48:43 Test Item Value Reference Range Interpretation [...] A Lab Interpretation (test code = Abnormal 17770-3) [facility] SouthUrinalysis w/Microscopic if Vqjenpktf6072-13-97 22:48:43 Test Item Value Reference Range Interpretation [...] A Lab Interpretation (test code = Abnormal 74007-0) [facility] SouthUrinalysis w/Microscopic if Yjwwdgeul7720-76-43 22:48:43 Test Item Value Reference Range Interpretation [...] A Lab Interpretation (test code = Abnormal 59646-9) [facility] Crossmatch 2020-11-11 22:06:30 Test Item Value Reference Range Interpretation Comments TMP XM Interp RBC units (test code = crossmatched for 7566) transfusion appear _FERNANDO acceptable. Nivia ASHLEY ed by: Nivia NEAL ed Date/Time: 10.25 17:06 PM CDT Transcribed Date/Time: 10.25 17:06 PM CDTElectronical ly Signed By: YAS ASHLEY, on 11.11.2020 17:0 6 PM [facility] Interpret[facility] Crossmatch 2020-11-11 22:06:30 Test Item Value Reference Range Interpretation Comments TMP XM Interp RBC units (test code = crossmatched for 7566) transfusion appear _FERNANDO acceptable. Nivia ASHLEY ed by: Nivia NEAL ed Date/Time: 10.25 17:06 PM CDT Transcribed Date/Time: 10.25 17:06 PM CDTElectronical ly Signed By: YAS ASHLEY, on 11.11.2020 17:0 6 PM [facility]TMP Interpretation Crossmatch 2020-11-11 22:06:30 Test Item Value Reference Range Interpretation Comments TMP XM Interp RBC units (test code = crossmatched for 7566) transfusion appear _MANUELA rhodes. Nivia ASHLEY ed by: Nivia NEAL ed Date/Time: 10.25 17:06 PM CDT Transcribed Date/Time: 10.25 17:06 PM CDTElectronical ly Signed By: YAS ASHLEY, on 11.11.2020 17:0 6 PM [facility]Prepare RBC:G15 NE, 1 Units 2020-11-11 19:07:08 Test Item Value Reference Range Interpretation Comments PRBC Product Ready 1 Red Blood Cells (test code = Available - 03617-1) Order Form 03 when ready for product issue. Unit Number (test [id number] code = 7002) Product Code (test [id number] code = 7003) Unit Expiration (test code = 424090) Unit Blood Type 6200 (test code = 7004) Product Code Text RBCIRLR CPD AS1 (test code = 500mL 174991) Crossmatch Expiration Date (test code = 780451) Unit Irradiated IRRADIATED (test code = 564691) Dispense Status ISSUED (test code = 7001) Unit Blood Type A Positive (test code = 7005) Product Engraving Plate Maker .BPAM ____ Location (test ___ code = 205934) ___ ____ [facility] RBC:G15 NE, 1 Units 2020-11-11 19:07:08 Test Item Value Reference Range Interpretation Comments PRBC Product Ready 1 Red Blood Cells (test code = Available - 33057-7) Order Form 03 when ready for product issue. Unit Number (test [id number] code = 7002) Product Code (test [id number] code = 7003) Unit Expiration (test code = 185208) Unit Blood Type 6200 (test code = 7004) Product Code Text RBCIRLR CPD AS1 (test code = 500mL 756400) Crossmatch [id number] Expiration Date (test code = ) Unit Irradiated IRRADIATED (test code = 002256) Dispense Status ISSUED (test code = 7001) Unit Blood Type A Positive (test code = 7005) Product Engraving Plate Maker .BPAM ____ Location (test ___ code = 455290) ___ _[facility]:G15 NE, 1 Units 2020-11-11 19:07:08 Test Item Value Reference Range Interpretation Comments PRBC Product Ready 1 Red Blood Cells (test code = Available - 84087-4) Order Form 03 when ready for product issue. Unit Number (test [id number] code = 7002) Product Code (test [id number] code = 7003) Unit Expiration (test code = 605853) Unit Blood Type 6200 (test code = 7004) Product Code Text RBCIRLR CPD AS1 (test code = 500mL 473021) Crossmatch [id number] Expiration Date (test code = ) Unit Irradiated IRRADIATED (test code = 351205) Dispense Status ISSUED (test code = 7001) Unit Blood Type A Positive (test code = 7005) Product Engraving Plate Maker .BPAM ____ Location (test ___ code = 935489) ___ ____ [facility] Product Ready for Engraving Plate Maker 2020-11-11 13:49:44 Test Item Value Reference Range Interpretation Comments PRBC Product Ready B2 Blood Bank Product is ready for for Engraving Plate Maker (test picking table worker on October code = 615054) 2020 08:4 4:54 CDT. [facility] Product Ready for Engraving Plate Maker 2020-11-11 13:49:44 Test Item Value Reference Range Interpretation Comments PRBC Product Ready B2 Blood Bank Product is ready for for Engraving Plate Maker (test picking table worker on October code = 296658) 2020 08:4 4:54 CDT. [facility] Product Ready for Engraving Plate Maker 2020-11-11 13:49:44 Test Item Value Reference Range Interpretation Comments PRBC Product Ready B2 Blood Bank Product is ready for for Engraving Plate Maker (test picking table worker on October code = 837565) 2020 08:4 4:54 CDT. [facility]COVID-19 (SARS-CoV-2) PCR- Asymptomatic [id number] 07:02:50 Test Item Value Reference Range Interpretation Comments COVID19 (SARS Not Detected Not Detected This test is a CoV-2) Result qualitative (test code = reverse-transcr iptase 43617-7) polymerase kerry n reaction (RT-PC R) developed for t he [employer] MELISSA 680 0 system and inte nded [...] were verified by the Microbiology Laboratory at [facility], CLIA Accreditation # : [id number] and CAP Accreditation # : [id number]. Result s must be interpreted within the [...] te sting if clinically indicated. COVID19 SARS SCAFFOLD BUILDER Swab Source (test code = 14743) COVID19 SARS Inpatient Indication (test Admission code = 92114) DARCI (test code = "Hematology 7 day DARCI) interval retest per Infectious Disease recommendations". [facility] (SARS-[facility]-2) PCR- Asymptomatic [id number] 07:02:50 Test Item Value Reference Range Interpretation Comments COVID19 (SARS Not Detected Not Detected This test is a CoV-2) Result qualitative (test code = reverse-transcr iptase 87486-5) polymerase kerry n reaction (RT-PC R) developed for t he [employer] MELISSA 680 0 system and inte nded [...] were verified by the Microbiology Laboratory at [facility], CLIA Accreditation # : [id number] and CAP Accreditation # : [id number]. Result s must be interpreted within the [...] te sting if clinically indicated. COVID19 SARS SCAFFOLD BUILDER Swab Source (test code = 34194) COVID19 SARS Inpatient Indication (test Admission code = 90473) DARCI (test code = "Hematology 7 day DARCI) interval retest per Infectious Disease recommendations". [facility] (SARS-CoV-2) PCR- Asymptomatic [id number] 07:02:50 Test Item Value Reference Range Interpretation Comments COVID19 (SARS Not Detected Not Detected This test is a CoV-2) Result qualitative (test code = reverse-transcr iptase 44342-8) polymerase kerry n reaction (RT-PC R) developed for t he [employer] MELISSA 680 0 system and inte nded [...] were verified by the Microbiology Laboratory at [facility], CLIA Accreditation # : [id number] and CAP Accreditation # : [id number]. Result s must be interpreted within the [...] te sting if clinically indicated. COVID19 SARS SCAFFOLD BUILDER Swab Source (test code = 41417) COVID19 SARS Inpatient Indication (test Admission code = 07224) DARCI (test code = "Hematology 7 day DARCI) interval retest per Infectious Disease recommendations". [facility] For Doc Review 2020-11-09 16:17:06 Test Item Value Reference Range Interpretation Comments Peripheral Smear (test code = 4273) [facility] 2020-11-09 16:17:06 Test Item Value Reference Range Interpretation Comments Peripheral Smear (test code = 4273) [facility] For Doc Review 2020-11-09 16:17:06 Test Item Value Reference Range Interpretation Comments Peripheral Smear (test code = 4273) [facility] Glucose [id number] 04:39:40 Test Item Value Reference Interpretation Comments Range POC Glucose (test 144 mg/dL 70-99 H RN Notifie dCapillary code = 62266-2) blood sample s, e.g. obtained by fingerstick, [...] Capillary code = 9554) Performing Lab (test Counts include 234 beds at the [facility] code = 52051) [facility] MD Yamilet rowan Clinical Lab, [address] [place] [address], [place], [place] [address]; [employer] Fabricator: Betsey Johnson MD Lab Interpretation Abnormal (test code = 43435-3) [facility] Glucose [id number] 04:39:40 Test Item Value Reference Interpretation Comments Range POC Glucose (test 144 mg/dL 70-99 H RN Notifie dCapillary code = 83010-6) blood sample s, e.g. obtained by fingerstick, [...] Capillary code = 9554) Performing Lab (test Counts include 234 beds at the [facility] code = 98101) [facility] MD Yamilet rowan Clinical Lab, [address] [place] [address]; [employer] Fabricator: Betsey Johnson MD Lab Interpretation Abnormal (test code = 33800-9) [facility] Glucose [id number] 04:39:40 Test Item Value Reference Interpretation Comments Range POC Glucose (test 144 mg/dL 70-99 H RN Notifie dCapillary code = 86843-8) blood sample s, e.g. obtained by fingerstick, [...] Capillary code = 9554) Performing Lab (test Counts include 234 beds at the [facility] code = 59645) [facility] MD Yamilet rowan Clinical Lab, [address] [place] [address]; [employer] Fabricator: Betsey Johnson MD Lab Interpretation Abnormal (test code = 77545-7) [facility] Oximetry [id number] 15:03:09 Test Item Value Reference Interpretation Comments Range POC O2 75.8 % Saturation,Venous (test code = 27595) POC Oxyhemoglobin, 73.7 % Venous (test code = 95331) POC Hemoglobin, total 8.8 g/dL 13.5-17.5 L (test code = 17443) POC Carboxyhemoglobin 0.7 % 0.0-1.9 (test code = 39511) POC Methemoglobin 2.0 % 0.0-1.5 H Method sam cription: (test code = 78283) The ABL8 0 FLEX CO-OX OSM analyzer is a portable, autom ated analyzer that measures oxygen saturation (sO2 ), concentration o f total hemoglobi n (ctHb), fractio n of oxygenated hemo globin in total hemogl obin (FO2Hb), fracti on of methemoglobin i n total hemoglobi n (FMetHb), and fraction of carboxyhemoglob in in total hemoglobi n (FCOHb) co-oxim etry parameters in [facility] blood. The anal yzer uses spectrophotomet ry to perform quantit ative measurement of the parameters list ed from a 65l sa mple. POC OX Draw Site (test Main pulm art code = 41139) Performing Lab (test [facility] Main Main Ca mpus code = 67285) [facility] Cli nical Lab, [facility] [address], [place] [address]; [employer] Fabricator: Betsey Johnson MD Lab Interpretation Abnormal (test code = 55772-6) [facility] Oxim[facility] [id number] 15:03:09 Test Item Value Reference Interpretation Comments Range POC O2 75.8 % Saturation,Venous (test code = 97754) POC Oxyhemoglobin, 73.7 % Venous (test code = 39458) POC Hemoglobin, total 8.8 g/dL 13.5-17.5 L (test code = 40040) POC Carboxyhemoglobin 0.7 % 0.0-1.9 (test code = 51081) POC Methemoglobin 2.0 % 0.0-1.5 H Method sam cription: (test code = 46549) The ABL8 0 FLEX CO-OX OSM analyzer is a portable, autom ated analyzer that measures oxygen saturation (sO2 ), concentration o f total hemoglobi n (ctHb), fractio n of oxygenated hemo globin in total hemogl obin (FO2Hb), fracti on of methemoglobin i n total hemoglobi n (FMetHb), and fraction of carboxyhemoglob in in total hemoglobi n (FCOHb) co-oxim etry parameters in [facility] blood. The anal yzer uses spectrophotomet ry to perform quantit ative measurement of the parameters list ed from a 65l sa mple. POC OX Draw Site (test Main pulm art code = 27733) Performing Lab (test [facility] Main Main Ca mpus code = 46822) [facility] Cli nical Lab, [address] [place] [address]; [employer] Fabricator: Betsey Johnson MD Lab Interpretation Abnormal (test code = 58415-1) [facility] Oximetry [id number] 15:03:09 Test Item Value Reference Interpretation Comments Range POC O2 75.8 % Saturation,Venous (test code = 78975) POC Oxyhemoglobin, 73.7 % Venous (test code = 80155) POC Hemoglobin, total 8.8 g/dL 13.5-17.5 L (test code = 80003) POC Carboxyhemoglobin 0.7 % 0.0-1.9 (test code = 66630) POC Methemoglobin 2.0 % 0.0-1.5 H Method sam cription: (test code = 58932) The ABL8 0 FLEX CO-OX OSM analyzer [...] Site (test Main pulm art code = 77929) Performing Lab (test [facility] Main Ca mpus code = 39746) [facility] Cli nical Lab, [address], [place] [address]; [employer] Fabricator: Betsey Johnson MD Lab Interpretation Abnormal (test code = 31443-8) [facility] Platelet Fraction 2020-11-02 10:14:02 Test Item Value Reference Range Interpretation Comments IPF (test code = 5.9 % 0.8-6.2 5988) DARIC (test code = For patients with DARCI) Platelets lower than 100 k/mm3 [facility] Plate[facility] F[facility] 2020-11-02 10:14:02 Test Item Value Reference Range Interpretation Comments IPF (test code = 5.9 % 0.8-6.2 5988) DARCI (test code = For patients with DARCI) Platelets lower than 100 k/mm3 [facility] Platelet Fraction 2020-11-02 10:14:02 Test Item Value Reference Range Interpretation Comments IPF (test code = 5.9 % 0.8-6.2 5988) DARCI (test code = For patients with DARCI) Platelets lower than 100 k/mm3 [facility] [id number] 10:14:01 Test Item Value Reference Range Interpretation Comments Retic Cnt Auto (test 0.6 % 0.5-1.5 code = 20340-2) RETHE (test code = 37.5 pg 23.2-37.5 6973) IRF (test code = 16.3 % 2.3-18.0 62403-1) DARCI (test code = DARCI) For patients with Platelets lower than 100 k/mm3 [facility] [id number] 10:14:01 Test Item Value Reference Range Interpretation Comments Retic Cnt Auto (test 0.6 % 0.5-1.5 code = 94647-0) RETHE (test code = 37.5 pg 23.2-37.5 6973) IRF (test code = 16.3 % 2.3-18.0 17120-7) DARCI (test code = DARCI) For patients with Platelets lower than 100 k/mm3 [facility]etic [id number] 10:14:01 Test Item Value Reference Range Interpretation Comments Retic Cnt Auto (test 0.6 % 0.5-1.5 code = 97885-8) RETHE (test code = 37.5 pg 23.2-37.5 6973) IRF (test code = 16.3 % 2.3-18.0 01756-2) DARCI (test code = DARCI) For patients with Platelets lower than 100 k/mm3 [facility]-Pro BNP (In-House)2020-10-31 11:01:08 Test Item Value Reference Range Interpretation Comments NT ProBNP (test code = 3919 pg/mL See_Comment H [Aut omated message] 9385) The system [employer] generated this result transmit jigar reference range : <=125. The refe rence range was not u sed to interpret th is result as normal/abnormal . Lab Interpretation Abnormal (test code = 89240-4) [facility] BNP (In-House)2020-10-31 11:01:08 Test Item Value Reference Range Interpretation Comments NT ProBNP (test code = 3919 pg/mL See_Comment H [Aut omated message] 9385) The system [employer] generated this result transmit jigar reference range : <=125. The refe rence range was not u sed to interpret th is result as normal/abnormal . Lab Interpretation Abnormal (test code = 63474-2) [facility]-Pro BNP (In-House)2020-10-31 11:01:08 Test Item Value Reference Range Interpretation Comments NT ProBNP (test code = 3919 pg/mL See_Comment H [Aut omated message] 9385) The system [employer] generated this result transmit jigar reference range : <=125. The refe rence range was not u sed to interpret th is result as normal/abnormal . Lab Interpretation Abnormal (test code = 24593-9) [facility] [id number] 21:14:59 Test Item Value Reference Range Interpretation Comments Final Report (test No growth code = 8488) Path Review - Urine The results have been (test code = 8483) reviewed and electronically signed by Pathologist:Mary Last MD, PhD #[id number] [facility] [id number] 21:14:59 Test Item Value Reference Range Interpretation Comments Final Report (test No growth code = 8488) Path Review - Urine The results have been (test code = 8483) reviewed and electronically signed by Pathologist:Mary Last MD, PhD #[id number] [facility] [id number] 21:14:59 Test Item Value Reference Range Interpretation Comments Final Report (test No growth code = 8488) Path Review - Urine The results have been (test code = 8483) reviewed and electronically signed by Pathologist:Mary Last MD, PhD #[id number] [facility] DNA [id number] 00:21:11 Test Item Value Reference Range Interpretation Comments HBV DNA Qnt-Oropeza Undetected Undetected IU/mL Result in log IU/mL is (test code = Undetected. 28736-4) ----ADDITIO NAL INFORMATION---- ----The quantif ication range of this a ssay is 10 to1,000,000,000 IU/mL (1.00 log to 9. 00 log IU/mL). Testing was performed using the melissa HBV test ([employer] with the melissa 6800 System. Test Pe rformed by:[place] [address]Lab Director: Sukhwinder Neville M.D. Ph. D.; CLIA# [id number] [facility] DNA [id number] 00:21:11 Test Item Value Reference Range Interpretation Comments HBV DNA Qnt-Oropeza Undetected Undetected IU/mL Result in log IU/mL is (test code = Undetected. 33140-1) ----ADDITIO NAL INFORMATION---- ----The quantif ication range of this a ssay is 10 to1,000,000,000 IU/mL (1.00 log to 9. 00 log IU/mL). Testing was performed using the melissa HBV test ([employer] with the melissa 6800 System. Test Pe rformed by:[address] [address]Lab Director: Sukhwinder Neville M.D. Ph. D.; CLIA# [id number] [facility] DNA [id number] 00:21:11 Test Item Value Reference Range Interpretation Comments HBV DNA Qnt-Oropeza Undetected Undetected IU/mL Result in log IU/mL is (test code = Undetected. 60552-2) ----ADDITIO NAL INFORMATION---- ----The quantif ication range of this a ssay is 10 to1,000,000,000 IU/mL (1.00 log to 9. 00 log IU/mL). Testing was performed using the melissa HBV test ([employer] with the melissa 6800 System. Test Pe rformed by:[place] [address]Lab Director: Sukhwinder Neville M.D. Ph. D.; CLIA# [id number] [facility] SouthFungus [id number] 21:36:34 Test Item Value Reference Range Interpretation Comments Final Report (test Few Yeast A code = 8488) isolatedProbable oral jesse Path Review - Fungus The results have been A (test code = 8479) reviewed and electronically signed by Pathologist:Mary Last MD, PhD #[id number] DARCI (test code = DARCI) And RULCultures are held for 4 weeks before finalization. Lab Interpretation Abnormal (test code = 31493-4) [facility] [id number] 21:36:34 Test Item Value Reference Range Interpretation Comments Final Report (test Few Yeast A code = 8488) isolatedProbable oral jesse Path Review - Fungus The results have been A (test code = 8479) reviewed and electronically signed by Pathologist:Mary Last MD, PhD #[id number] DARCI (test code = DARCI) And RULCultures are held for 4 weeks before finalization. Lab Interpretation Abnormal (test code = 54647-5) [facility]us [id number] 21:36:34 Test Item Value Reference Range Interpretation Comments Final Report (test Few Yeast A code = 8488) isolatedProbable oral jesse Path Review - Fungus The results have been A (test code = 8479) reviewed and electronically signed by Pathologist:Mary Last MD, PhD #[id number] DARCI (test code = DARCI) And RULCultures are held for 4 weeks before finalization. Lab Interpretation Abnormal (test code = 96446-3) [facility] SouthTobramycin [id number] 16:34:36 Test Item Value Reference Range Interpretation [...] dose is due on 10/27 at 11am [facility] SouthTobramycin [id number] 16:34:36 Test Item Value Reference Range Interpretation [...] dose is due on 10/27 at 11am [facility] SouthTobramycin [id number] 16:34:36 Test Item Value Reference Range Interpretation [...] dose is due on 10/27 at 11am [facility] SouthFerritin [id number] 09:30:46 Test Item Value Reference Range Interpretation Comments Ferritin Lvl (test code = 5608) 899 ng/mL 30-400 H Lab Interpretation (test code = Abnormal 70182-4) [facility] SouthFerritin [id number] 09:30:46 Test Item Value Reference Range Interpretation Comments Ferritin Lvl (test code = 5608) 899 ng/mL 30-400 H Lab Interpretation (test code = Abnormal 65610-9) [facility]in [id number] 09:30:46 Test Item Value Reference Range Interpretation Comments Ferritin Lvl (test code = 5608) 899 ng/mL 30-400 H Lab Interpretation (test code = Abnormal 69644-8) [facility]astrointestinal Multiplex Panel Path [id number] 20:12:16GIMP PRNo diarrheal pathogens detected by multiplex nucleic acid detection. A negative result does not rule-out the possibility of a diarrheal pathogen not are detected by this panel. Non- infectious causes of diarrhea should also be considered....Reviewed and Electronically signed by Pathologist:Monserrat LOVE, PhD #[id number] [facility]ITALUnNac[facility]doc[facility] HospitalGastrointestinal Multiplex Panel Path [id number] 20:12:16GIMP PRNo diarrheal pathogens detected by multiplex nucleic acid detection. A negative result does not rule- out the possibility of a diarrheal pathogen not are detected by this panel. Non- infectious causes of diarrhea should also be considered....Reviewed and Electronically signed by Pathologist:Monserrat LOVE, PhD #[id number] [facility] CENTERUnNacogdoches Memorial HospitalGastrointestinal Multiplex Panel Path [id number] 20:12:16GIMP PRNo diarrheal pathogens detected by multiplex nucleic acid detection. A negative result does not rule- out the possibility of a diarrheal pathogen not are detected by this panel. Non- infectious causes of diarrhea should also be considered....Reviewed and Electronically signed by Pathologist:Monserrat LOVE, PhD #[id number] [facility] MED[facility] CENTERUnNacogdoches Memorial HospitalClostridium Difficile DNA Path [id number] 19:51:50C diff DNA PRC. difficile EIA is performed only on stools positive for C. difficile DNA and detects the presence of C. difficile toxin proteins via a rapid immunoassay. Patients positive for BOTH C. difficile DNA and EIA are more likely to have a C. difficile infection....Reviewed and Electronically signed by Pathologist:Jonathon Bethea MD, PhD #[id number] [facility] MED[facility] CENTERUnNacogdoches Memorial HospitalClostridium Difficile DNA Path [id number] 19:51:50C diff DNA PRC. difficile EIA is performed only on stools positive for C. difficile DNA and detects the presence of C. difficile toxin proteins via a rapid immunoassay. Patients positive for BOTH C. difficile DNA and EIA are more likely to have a C. difficile infection....Reviewed and Electronically signed by Pathologist:Jonathon Bethea MD, PhD #[id number] [facility] CENTERUnNacogdoches Memorial HospitalClostridium Difficile DNA Path [id number] 19:51:50C diff DNA PRC. difficile EIA is performed only on stools positive for C. difficile DNA and detects the presence of C. difficile toxin proteins via a rapid immunoassay. Patients positive for BOTH C. difficile DNA and EIA are more likely to have a C. difficile infection....Reviewed and Electronically signed by Pathologist:Jonathon Bethea MD, PhD #[id number] [facility] CAN[facility]ER CENTERUnNacogdoches Memorial HospitalClostridium Difficile DNA [id number] 15:56:03 Test Item Value Reference Range Interpretation [...] infection. Lab Interpretation (test Abnormal code = 00792-4) [facility] SouthClostridium Difficile DNA Assay 2020-10-22 15:56:03 Test Item [...] infection. Lab Interpretation (test Abnormal code = 83099-1) [facility] SouthClostridium Difficile DNA Assay 2020-10-22 15:56:03 Test Item [...] infection. Lab Interpretation (test Abnormal code = 00265-3) [facility]astro[facility] Multiplex Panel 2020-10-21 22:23:03 Test Item Value [...] Not Detected V) (test code = 7321) [facility]astro[facility] 2020-10-21 22:23:03 Test Item Value [...] Not Detected V) (test code = 7321) [facility] FlorenceGastrointestinal Multiplex Panel 2020-10-21 22:23:03 Test Item Value Reference Range Interpretation Comments Campylobacter (test code = Not Detected Not Detected 5277) C difficile DNA (GI Multi Refer to [...] Not Detected V) (test code = 7321) [facility]atitis B Surface Ag w/Confirm 2020-10-19 16:28:28 Test Item Value Reference Range Interpretation Comments Hep Bs Ag-[facility] Negative Negative Test Perform ed by:[facility] (test code = [facility] 5196-1) [place] [employer] ior [id number] [employer] [place] [address] Director: Sukhwinder Neville M.D. Ph. D.; CLIA# [id number] [facility] Surface Ag w/Confirm 2020-10-19 16:28:28 Test Item Value Reference Range Interpretation Comments Hep Bs Ag-[facility] Negative Negative Test Perform ed by:[facility] (test code = [facility] 5196-1) [place] [employer] i[employer] [id number] [employer] [place] [id number] Director: Sukhwinder Neville M.D. Ph. D.; CLIA# [id number] [facility] B Surface Ag w/Confirm 2020-10-19 16:28:28 Test Item Value Reference Range Interpretation Comments Hep Bs Ag-[facility] Negative Negative Test Perform ed by:[facility] (test code = [facility] 5196-1) [place] [employer] ior [id number] [employer] i[employer] [place], [place] [address]Lab Director: Sukhwinder Neville M.D. Ph. D.; CLIA# [id number] [facility]Complete Blood Count w/o [id number] 09:59:09 Test Item Value Reference Range Interpretation Comments WBC (test code = 7.1 K/uL 4.0-11.0 6690-2) RBC (test code = 789-8) 2.73 See_Comment L [Au tomated message] The system [employer] generated this result transmitted ref erence range: 4.50 - 6 .00 M/uL. The refer ence range was not u sed to interpret this result as normal/abnor mal. Hgb (test code = 718-7) 7.9 See_Comment L [Au tomated message] The system [employer] generated this result transmitted ref erence range: [...] See_Comment [Automate d message] 786-4) The system [employer] generated this result transmitted ref erence range: 31.0 - 3 6.0 gm/dL. The refe rence range was not u sed to interpret this result as normal/abnor mal. RDW-SD (test code = 54.5 fL 35.1-46.3 H 91119-3) RDW-CV (test code = 16.9 % 12.0-15.5 [...] cell differential. [Automated mess age] The system [employer] generated this result transmitted ref erence range: <=0.0. T he reference range was not used to int erpret this result as normal/abnormal . Lab Interpretation Abnormal (test code = 55025-9) [facility]Complete Blood Count w/o Wjyldvddrytx7211-40-06 09:59:09 Test Item Value Reference Range Interpretation Comments WBC (test code = 7.1 K/uL 4.0-11.0 6690-2) RBC (test code = 789-8) 2.73 See_Comment L [Au tomated message] The system [employer] generated this result transmitted ref erence range: 4.50 - 6 .00 M/uL. The refer ence range was not u sed to interpret this result as normal/abnor mal. Hgb (test code = 718-7) 7.9 See_Comment L [Au tomated message] The system [employer] generated this result transmitted ref erence range: [...] See_Comment [Automate d message] 786-4) The system [employer] generated this result transmitted ref erence range: 31.0 - 3 6.0 gm/dL. The refe rence range was not u sed to interpret this result as normal/abnor mal. RDW-SD (test code = 54.5 fL 35.1-46.3 H 52767-2) RDW-CV (test code = 16.9 % 12.0-15.5 [...] cell differential. [Automated mess age] The system [employer] generated this result transmitted ref erence range: <=0.0. T he reference range was not used to int erpret this result as normal/abnormal . Lab Interpretation Abnormal (test code = 88281-1) [facility] FlorenceComplete Blood Count w/o Tylfulbewsfe3341-88-48 09:59:09 Test Item Value Reference Range Interpretation Comments WBC (test code = 7.1 K/uL 4.0-11.0 6690-2) RBC (test code = 789-8) 2.73 See_Comment L [Au tomated message] The system Stack[employer] generated this result transmitted ref erence range: 4.50 - 6 .00 M/uL. The refer ence range was not u sed to interpret this result as normal/abnor mal. Hgb (test code = 718-7) 7.9 See_Comment L [Au tomated message] The system [employer] generated this result transmitted ref erence range: [...] See_Comment [Automate d message] 786-4) The system [employer] generated this result transmitted ref erence range: 31.0 - 3 6.0 gm/dL. The refe rence range was not u sed to interpret this result as normal/abnor mal. RDW-SD (test code = 54.5 fL 35.1-46.3 H 56315-2) RDW-CV (test code = 16.9 % 12.0-15.5 [...] cell differential. [Automated mess age] The system [employer] generated this result transmitted ref erence range: <=0.0. T he reference range was not used to int erpret this result as normal/abnormal . Lab Interpretation Abnormal (test code = 94489-5) [facility], [id number] 09:42:03 Test Item Value Reference Range Interpretation Comments V Lactate (test code = 2519-7) 0.8 mmol/L 0.5-1.6 [facility] Acid, [id number] 09:42:03 Test Item Value Reference Range Interpretation Comments V Lactate (test code = 2519-7) 0.8 mmol/L 0.5-1.6 [facility], [id number] 09:42:03 Test Item Value Reference Range Interpretation Comments V Lactate (test code = 2519-7) 0.8 mmol/L 0.5-1.6 [facility] SouthHepatitis B Surface [id number] 10:42:36 Test Item Value Reference Range Interpretation Comments HBsAg Received (test See Note HBsAg w as sent to a code = 73441) reference lab for testing. Expect results on Hepatitis B Surface Antigen w/ Conf irm within 96 hours . [facility]atitis B Surface [id number] 10:42:36 Test Item Value Reference Range Interpretation Comments HBsAg Received (test See Note HBsAg w as sent to a code = 19225) reference lab for testing. Expect results on Hepatitis B Surface Antigen w/ Conf irm within 96 hours . [facility]atitis B Surface [id number] 10:42:36 Test Item Value Reference Range Interpretation Comments HBsAg Received (test See Note HBsAg w as sent to a code = 91335) reference lab for testing. Expect results on Hepatitis B Surface Antigen w/ Conf irm within 96 hours . [facility]ABG2021-07-19 09:56:39 Test Item Value Reference Range Interpretation Comments pH Art (test code = 7.51 7.35-7.45 H Results are 2744-1) corrected for a body temp of 37C. pCO2 Art (test code = 33.9 See_Comment L [Auto mated message] 2018-10) The system [employer] generated this result transmit jigar reference range : 35.0 - 48.0 mmH g. The reference r louis was not used to interpret this result as normal/abnormal . pO2 Art (test code = 104 See_Comment [Autom ated message] 4988-6) The system [employer] generated this result transmit jigar reference range : 83 - 108 mmHg. The reference range was not used to interpret this result as normal/abnormal . HCO3 Art (test code = 27 mmol/L -1959-) Base Excess Art (test 4 mmol/L -2-3 H code = 1925-7) O2 Sat Art (test code = 99 % 95-99 6512) Lab Interpretation (test Abnormal code = 90178-0) [facility] 09:56:39 Test Item Value Reference Range Interpretation Comments pH Art (test code = 7.51 7.35-7.45 H Results are 2744-1) corrected for a body temp of 37C. pCO2 Art (test code = 33.9 See_Comment L [Auto mated message] 2018-10) The system [employer] generated this result transmit jigar reference range : 35.0 - 48.0 mmH g. The reference r louis was not used to interpret this result as normal/abnormal . pO2 Art (test code = 104 See_Comment [Autom ated message] 9088-6) The system [employer] generated this result transmit jigar reference range : 83 - 108 mmHg. The reference range was not used to interpret this result as normal/abnormal . HCO3 Art (test code = 27 mmol/L -1959-) Base Excess Art (test 4 mmol/L -2-3 H code = 1925-7) O2 Sat Art (test code = 99 % 95-99 6512) Lab Interpretation (test Abnormal code = 00177-9) [facility] 09:56:39 Test Item Value Reference Range Interpretation Comments pH Art (test code = 7.51 7.35-7.45 H Results are 2744-1) corrected for a body temp of 37C. pCO2 Art (test code = 33.9 See_Comment L [Auto mated message] 2018-10) The system [employer] generated this result transmit jigar reference range : 35.0 - 48.0 mmH g. The reference r louis was not used to interpret this result as normal/abnormal . pO2 Art (test code = 104 See_Comment [Autom ated message] 6) The system [employer] generated this result transmit jigar reference range : 83 - 108 mmHg. The reference range was not used to interpret this result as normal/abnormal . HCO3 Art (test code = 27 mmol/L -1959-) Base Excess Art (test 4 mmol/L -2-3 H code = 1925-7) O2 Sat Art (test code = 99 % 95-99 6512) Lab Interpretation (test Abnormal code = 37066-4) [facility] SouthVancomycin Level [id number] 06:58:59 Test Item Value Reference Range Interpretation [...] report ed is the samplecollectio n date. [facility] SouthVancomycin Level Qwnqyq4120-16-07 06:58:59 Test Item Value Reference Range Interpretation [...] report ed is the samplecollectio n date. [facility] SouthVancomycin Level [id number] 06:58:59 Test Item Value Reference Range Interpretation [...] report ed is the samplecollectio n date. [facility] Ocqfggh9447-32-02 21:32:10 Test Item Value Reference Range Interpretation Comments Final Report (test No Methicillin resistant code = 8488) Staphylococcus aureus isolated. Path Review (test The results have been code = 8492) reviewed and electronically signed by Pathologist:Mary Last MD, PhD #[id number] [facility] SouthMRSA Screening [id number] 21:32:10 Test Item Value Reference Range Interpretation Comments Final Report (test No Methicillin resistant code = 8488) Staphylococcus aureus isolated. Path Review (test The results have been code = 8492) reviewed and electronically signed by Pathologist:Mary Last MD, PhD #[id number] [facility] SouthMRSA Screening Jxzmteq6929-42-55 21:32:10 Test Item Value Reference Range Interpretation Comments Final Report (test No Methicillin resistant code = 8488) Staphylococcus aureus isolated. Path Review (test The results have been code = 8492) reviewed and electronically signed by Pathologist:Mary Last MD, PhD #[id number] [facility] Laboratory Add-On Test 2020-10-10 07:25:00 Test Item Value Reference Range Interpretation Comments Ordered (test code = 6568) Test Added Test Needed (test code = 7604) mag NASH phos [facility] Add-On Test 2020-10-10 07:25:00 Test Item Value Reference Range Interpretation Comments Ordered (test code = 6568) Test Added Test Needed (test code = 7604) mag NASH phos [facility] Laboratory Add-On Test 2020-10-10 07:25:00 Test Item Value Reference Range Interpretation Comments Ordered (test code = 6568) Test Added Test Needed (test code = 7604) mag NASH phos [facility] SouthCalcium Ionized, [id number] 13:46:31 Test Item Value Reference Range Interpretation Comments V Ion Ca (test code = 30885-7) 1.14 mmol/L 1.15-1.29 L Lab Interpretation (test code = Abnormal 37546-2) [facility] SouthCalcium Ionized, [id number] 13:46:31 Test Item Value Reference Range Interpretation Comments V Ion Ca (test code = 66983-1) 1.14 mmol/L 1.15-1.29 L Lab Interpretation (test code = Abnormal 58932-0) [facility] SouthCalcium Ionized, [id number] 13:46:31 Test Item Value Reference Range Interpretation Comments V Ion Ca (test code = 53885-4) 1.14 mmol/L 1.15-1.29 L Lab Interpretation (test code = Abnormal 02879-8) [facility] SouthLegionella [id number] 21:36:07 Test Item Value Reference Range Interpretation Comments Final Report (test No Legionella species code = 8488) isolated Path Review - The results have been Legionella (test code reviewed and = 8480) electronically signed by Pathologist:Mary Last MD, PhD #[id number] DARCI (test code = DARCI) Label says L & RUL [facility] SouthLegionella Wntcbjk6700-76-11 21:36:07 Test Item Value Reference Range Interpretation Comments Final Report (test No Legionella species code = 8488) isolated Path Review - The results have been Legionella (test code reviewed and = 8480) electronically signed by Pathologist:Mary Last MD, PhD #[id number] DARCI (test code = DARCI) Label says L & RUL [facility] SouthLegionella [id number] 21:36:07 Test Item Value Reference Range Interpretation Comments Final Report (test No Legionella species code = 8488) isolated Path Review - The results have been Legionella (test code reviewed and = 8480) electronically signed by Pathologist:Mary Last MD, PhD #[id number] DARCI (test code = DARCI) Label says [facility] [id number] 15:15:29 Test Item Value Reference Range Interpretation [...] JENNA SINGH, on 10.05.2020 10:1 5 AM [facility] Btqjfcfgb5311-29-26 15:15:29 Test Item Value Reference Range Interpretation [...] JENNA SINGH, on 10.05.2020 10:1 5 AM [facility] SouthTMP Ssjpjrpsg9936-24-54 15:15:29 Test Item Value Reference Range Interpretation Comments TMP Exception Patient A Pos ____ Interp (test transfused with O Pos code = 7544) platelets. This is due to temporary _LISETTE DAVID DYLAN unavailability of ABO SINGH ,Dictated compatible platelets by: CHICA SINGH,Dictated Date/Time: 10.05.2020 10:1 5 AM CDT Transcribed Date/Time: 10.05.2020 10:1 5 AM CDTElectronical ly Signed By: JENNA SINGH, on 10.05.2020 10:1 5 AM [facility] SouthPrepare platelets:Transfusion Date: 10/04/2020; Transfusion Indications: Actively Bleeding; G707, 1 [id number] 21:47:10 Test Item Value Reference Range Interpretation Comments PLT Product Ready Approved Platelet o rder (test code = has been 96484-4) approved. Order Form 3 when ready for product issue. Expect 2 hours for platelet concentration. Unit Number (test [id number] code = 7002) Product Code (test R8137Q55 code = 7003) Unit Expiration [id number] (test code = 916500) Unit Blood Type 5100 (test code = 7004) Product Code Text PLATELETS Pooled IR (test code = 607739) LR ID Number of Units in 4 Pool (test code = 245614) Unit Irradiated IRRADIATED (test code = 854230) Unit Leukoreduced LEUKOREDUCED (test code = 539204) Dispense Status ISSUED (test code = 7001) Unit Blood Type O Positive (test code = 7005) Product Engraving Plate Maker .BPAM ___ Location (test code = 477337) [facility] SouthPrepare platelets:Transfusion Date: 10/04/2020; Transfusion Indications: Actively Bleeding; G707, 1 [id number] 21:47:10 Test Item Value Reference Range Interpretation Comments PLT Product Ready Approved Platelet o rder (test code = has been 04303-1) approved. Order Form 3 when ready for product issue. Expect 2 hours for platelet concentration. Unit Number (test [id number] code = 7002) Product Code (test L5824X62 code = 7003) Unit Expiration [id number] (test code = 140200) Unit Blood Type 5100 (test code = 7004) Product Code Text PLATELETS Pooled IR (test code = 517058) LR ID Number of Units in 4 Pool (test code = 517550) Unit Irradiated IRRADIATED (test code = 811254) Unit Leukoreduced LEUKOREDUCED (test code = 692090) Dispense Status ISSUED (test code = 7001) Unit Blood Type O Positive (test code = 7005) Product Engraving Plate Maker .BPAM ___ Location (test code = 969870) [facility] platelets:Transfusion Date: 10/04/2020; Transfusion Indications: Actively Bleeding; G707, 1 [id number] 21:47:10 Test Item Value Reference Range Interpretation Comments PLT Product Ready Approved Platelet o rder (test code = has been 13854-2) approved. Order Form 3 when ready for product issue. Expect 2 hours for platelet concentration. Unit Number (test [id number] code = 7002) Product Code (test G4033A28 code = 7003) Unit Expiration [id number] (test code = 283360) Unit Blood Type 5100 (test code = 7004) Product Code Text PLATELETS Pooled IR (test code = 742145) LR ID Number of Units in 4 Pool (test code = 016518) Unit Irradiated IRRADIATED (test code = 607932) Unit Leukoreduced LEUKOREDUCED (test code = 066837) Dispense Status ISSUED (test code = 7001) Unit Blood Type O Positive (test code = 7005) Product Engraving Plate Maker .BPAM ___ Location (test code = 393147) [facility] Product Ready for Engraving Plate Maker 2020-10-04 21:05:07 Test Item Value Reference Range Interpretation Comments PLT Product Ready B2 Blood Bank Product i s ready for for Engraving Plate Maker (test picking table worker on October 04, code = 496002) 2020 16:05:02 CDT. [facility] Product Ready for Engraving Plate Maker 2020-10-04 21:05:07 Test Item Value Reference Range Interpretation Comments PLT Product Ready B2 Blood Bank Product i s ready for for Engraving Plate Maker (test picking table worker on October 04, code = 000811) 2020 16:05:02 CDT. [facility] Product Ready for Engraving Plate Maker 2020-10-04 21:05:07 Test Item Value Reference Range Interpretation Comments PLT Product Ready B2 Blood Bank Product i s ready for for Engraving Plate Maker (test picking table worker on October 04, code = 655941) 2020 16:05:02 CDT. [facility] SouthFibrinogen2021-07-11 18:27:11 Test Item Value Reference Range Interpretation Comments Fibrinogen (test code = 5610) 193 mg/dL 214-503 L Lab Interpretation (test code = Abnormal 72793-9) [facility] SouthFibrinogen2021-07-11 18:27:11 Test Item Value Reference Range Interpretation Comments Fibrinogen (test code = 5610) 193 mg/dL 214-503 L Lab Interpretation (test code = Abnormal 13091-4) [facility] SouthFibrinogen2021-07-11 18:27:11 Test Item Value Reference Range Interpretation Comments Fibrinogen (test code = 5610) 193 mg/dL 214-503 L Lab Interpretation (test code = Abnormal 78117-8) [facility] FlorenceCytology Non-Lead Material Handler Interpretation 2020-10-02 23:36:05 Test Item Value Reference Range Interpretation Comments Gross Description (test t9qclZVcFYEssPXUMI code = 2673174526) CrA8rdbpRjAOTvpZMj O4LuukyfNTytAW0tYV 9keQzfhYSmhFPhSQ6T XGRlZmYxXHBhcGVydz EyMjQwXHBhcGVyaDE1 FGSrGJ6dwsqiDEyhIG vuDCKtehZ5FLInfUJc Z2NxQJUlXH6gurulYI N6AVlqeW4vcnPJZytx Ic2rmSWdjEnlOeIuGo NoYXJzZXQwXGZuaWwg EYEjHQa5yS1VWvmmR5 3xf8Z7Nxf6XPLqOXOv A5FuYO2cGRLsyBDhF1 6HMbgfNLL6YPFFRlgd WBDbIG3Be0wlCNHnvP SqKTL5UVzggWIbCHKr QWQrIMb4BVWaLCepyG PkHO6diKbuPzlbvDoe o0CtyTNxMHazWHIdTL VpTChdBWPmZP7XTnXs GUDeVCK9ILcpIXf2NG h4UA8LAqBgIZPyRIi7 DVbtUfZtNWy9OTzvSS 3HXOa8Ruc5HyF0BWF9 WWF5DIEkVBQkDcTuJE YgQXJpYWwgXFxmcyAx MCBcXGZiIFxcZmwgXF vbY10slLzkxU6uYwkj meCzRXL4AHXdxgZXKz xwbGFpblxlcGljTmVz dERvYzEgDQpcbHRycG FyXGxpbjBccmluMCAN ClxsdHJjaFxjZjFcZn MyMCAxIERpZmYgUXVp xwapWARTTRHpZ4CjnC 2sX4jfQQOwTDXkieMU XgJ6OZ1wSyPevLWyzX PhxCjdCzicxBR5BRvs WqqnsE3fjYUEEXVENc tMQkuvswZdGZ5XMFMG RtVPFA01EsA4XfK9CW wxfXtcZmxkcnNsdCBc ShFKbN2jpOjziKUcuT FfbH75VYlkBJTjv4Mo L9Mkf9qimELsKZodBe akxNEigpH6WKzDSRVP BObKGsZoND5zTYaMIB RCRUdJTnwyfXtcZmxk flBwpMQfWoGPnE4cxF 6zj3tgiPGzFRchLyrx oMJizoN5BCjHKMZGNX gQNbBpXH1uBGsCKESN AzO3Gq54MEKjOTYrzR QkCPnaF588DWXyXKmx KFu9dbNbEQTll0IiO4 FeF9OuJHCjXxAeIBIi aKmvy8mmeHJyRStvMd kqfEWtjfB5DLlPYBSA XYeIVzYsFX2pYEqXK4 VKOrF8AeH7QpA7DSwp fXtcZmxkcnNsdCBcJz BGhG9doLbhsL2diFMm D9rjW6KnJRFaQcDvsM LsWO9YUAJfs3AtU7M5 HFUlMMxmo8jcMCShNP pap4OkTWnTKQTPGR7N KX1agGV0JLsJGZWAP3 yZaWZ4EmRvcCZ4J971 XGZsZHJzbHQgXCcxQ3 37O0CkI6bpTK2hJ75f N8XyvOYqqIFbTCS6YC C3dS0kXB39tanieXtj bMpbldY3SORymlcoqD Q9DZZrADhrn8qcIQWb TOdcc9MwYXnSSHSXJG 7UHK8zyQV3MQeSTZPG CQboTVX3HJjdcEQ7e2 xplEEym9c9HUbqQEX9 fVxwbGFpblxsdHJjaF xjZjFcZnMyMFxwYXIg KNrKjJSzqRx3YDlbdk TJGRPZANsGM8NtMFNT IVPLFLVxLxPUXS1kZl M9ViK4ZW56WxkeJsF8 JpFvvME3BJALQRYHCL nRB8TlLRQZPKCQTUTh PV2OABjUXWCKKNRYG7 2NGRSKUASMV2LHH1gW XNYvt3NmrtdVXUhFD7 TTKP7IAQVUZRDQUP5T KzWuXMoRY8DFU6kCHP JfTUVUQURBVEFfQkVH AE3fMSd3Erp5zVW6Gh G9FuM7UkfmDA9nBTeS e60dBY01stV0mR5mMT PuU3vexNZ8SXzfBXD5 NLa0ZiEiPZTurAUfNV NvbmNlbnRyYXRlZCBi iRGpvIHyL7HjfFUiKh SpWIGpq01ywIRyiE9h kMNrGxruQX5qUHwCM2 FYM2vBUZIgZBMYHVVR UCOpBN3COMmGTP7XHX JfTUVUQURBVEFfQkVH QQ1iCBsQXM4XRHUsKG ADYTBBWVNlJS2GZIOF GR7SHMITDFQUT16QVB LLWNCQO0MGL6iTPBJW RXSVOsBUUfOWTJ6KSI EOAAGTQZ8VArBTTylx bGFpblxlcGljTmVzdE QzSrNlyIbifI83HBLe qGYdBOX9MS8lYRPyhq qnBETtPWBhEUE5HWxs dE28bBNzPEVnXWMizA RopH4SCTEeFPB8VGsp sC74zQQwWL1SOOInSA S9GMGvtDDtWJS6JB8p fQ0KfQ== Major Classification (test NFMC/benign code = 9839) Diagnosis (test code = 34) w2rkqTHaARWurPQ1NQ GnHLTro4sas1YeeHLs cGFyXGpleHBhbmRcbm 89gSR3xB24QT9fIAWt IuB5FLJydfE6Nsx8HA ExARDeoSYaK269i6wz x0rtpjErlHB7CXAlVR ToG1CnIB3hXEUhlYQg T29cnAQjSVW6ALChRO YuhJIaHXZpDQW1HEOg hRQiA2hvWLMxRJ7vlu dyMTgwMFxtYXJndDE0 RYXhmJVqW8BgUKEvHL aqDDZclwn3MeMqUf8h dGVyeTcyMFxwYXJkXH HrDBljRESpOdZvJ0Jt NXKrAPy1fwgrMINwZ4 f7IVJkfNSpUVcuHmAx VYEzv07mmX1ccHTnc6 clniPcRFOhF6U0TQRl gef2FJNtbONvJQcyVv IwXGxpbjcyMFxjZjAg Bs9fcKTrcXrtEO28YK KtcRslRAdjLZ69sEGf AJKrvIKiSM0aQMIwow LkGPFaFS4pOOXceAVl IEdNUyBzdGFpbiwgbm GyWWUkbtNrCy5ePDD5 khsxjOBaa7YucoRhoD FyIEdNUyBzdGFpbiwg ugZwTGCpwqPfId2yXK HnTZWgu8H5g8Xgd2yn YXIgSXJvbiBzdGFpbi gxWXHdYX20qFTkiBkr bmVnYXRpdmVccGFyfQ == Comment (test code = 9835) f2fynCHyBHGqnLI7KZ ZsKYQqa4idk8AkbUNw cGFyXGpleHBhbmRcbm 53wJC8dG83MH5rHUNx VtF5NXQbewG2Ssp0ZJ PdWUAzsPCxG939f9vn p2vzeaTyaSR6gKulWI VaqtygPcW5ZRxfCLEk rghjAZa7ECynINOawH J9HHQluWKxT3QkPCMt WX7zkup0SWI9AXknLY KhGyK8LMVdfOZbRONs rYfzESnfa111ZLE2Rn EuYYSiaiCkzNmtcR5y EyNmPKWAf539di0tgz RjkvMrMLAsie9hylue dGUuIFxwYXJ9 Retained/Biomarker Testing a1nebOCnGZHbjQI9AB (test code = 9838) FzKYYmf3yny3IssLJd cGFyXGpleHBhbmRcbm 17iWU2iM43XC0nOVWt HiS3DJCdqvS1Dja0UD FgFQPrlBZgZ099y0pq x1zxcaGldMU5qClfNS PtlqvtDbD8RUarUUAj oxwyTEl8LKjdIQAxtY Y8WFEtuBZbT1ZeVUId RK8gxvq1USZ6MZihEQ TfYwI2YANgnNFvWJDm kKhtLJolo427TQQ6Hp WsWZIxwlYbmMfxhD1u ZnMyMCBTUjogMiBTLC AyIFNQIFxwYXJ9 Informational Points (test y5gdyYUsLAFyrIMzEr code = 9836) UaBMGjLEUro4plKXHe bGFuZzEwMzNcZnRuYm sdwTXyKSFvAjLlk6fq h306uCSuc8kvIULtCz O5cNExGMTviVQlE006 SKCsQYvme0qwl4DsGQ HojRFyv8X7DNWNLLtn BLEFRLw4p6abYbZgHb A0gVIeUGzxM4hdvcBb tPIrHBFqXMx8nM05KA IjxZ7awBKnQNlhqsYs AeS3WEidVUHeJuG0QA BfvDFuVBQzZ8frFIOd XGdyZWVuMFxibHVlMC K2qEndm2J8pRYviKYw dHtcZjBcZnMyMiBOb3 KdIVd9hXlmO9ZeUWOo CfI9iKUyGVUfALzmWV LjYTVmkdK0aA76YCyb mwG6aUSje0Ddm01tl7 58vQ2acYYuKMB4IMMc RLSjeLTpPJVeVGN0KH EwvPGvI4ozMYRoRT7t cmdyMTgwMFxtYXJndD V6COJkaIEsM6FcSBIu VQvjHROgqep2VkZaPh 6qpFVowFmqAHtjn3iz s4zbwCNoDlz7QMXmWl JaPjhqUYlhu6Wkl9ww IHHnxj3vTVE0zOIziE qsy9P8cHKeTIVthQPx fgXrLJEcQlT5DPmpOW 6sum51KJWhYAN8ao8f bGNccGdicmRyaGVhZF rxA7JjWNFwg564KPIo T6RuWFXvi6T4xwBsMw VsXDDvfUT3dpD1ETAl LVz4mEGqqkH4hvCqhH JdF7wgbB6tDUAjPH5u irnaa0feHIadRIgpKR TzgFV4ceL1JUMahZMh M2RqsV6zHMJdOBxnGM Ordns3WhYjFo4gvFXk eTcyMFxzYmtwYWdlXH BnbmNvbnRccGduZGVj XHBsYWluXHBsYWluXG YwXGZzMjRccWxccGxh sA2cTpSmBbNvONxsPB 1kQWIhM8rrcFDpEPFl PLTwR9cvVtXjmM0qkF suBKayacD8KQgkQ31d TIL2LLG2esYjNGEsfv DnMUYeTMFdXY3thAQr FCQtPMZpQR0sIAN7FU xvcGVkIGFuZCBwZXJm p3ExDB3mRJSvpQZhWG R5LFWsq4FdI8XlMWN9 ZEZkiE3xDMBrkDUAXX BNRCBBbmRlcnNvbiBQ WKWcl3xtF9voRT5cNR sjHj2uHYAqtgdjUARn aWNpbmUuIFRoZXNlIH Yjw8NkDAkammHvqh22 ZVAcYL9ti0CfH8knaD BjfRa3FJUfVCKuXCEx m6IwAPJfnu07EZXbDm gbaYybKVGoAi6kQz1u DSFqbiNyAQH1JpVCOX 9eklmkkPVdtTwesz7a XHBsYWluXGYyXGZzMj JcbGFuZzEwMzNcaGlj aFxmMlxkYmNoXGYyXG laG1xgFkRgIuBsMqad YXJ9 [facility] FlorenceCyt[facility] Non-Lead Material Handler Interpretation 2020-10-02 23:36:05 Test Item Value Reference Range Interpretation Comments Gross Description (test y5atoEPmUYNonXVMFH code = 1029220443) MnX6xjnlTbEWFreVGg W2BartsfRLdfGN1cGK 6ymFkmxRZqvXQpXJ0C XGRlZmYxXHBhcGVydz EyMjQwXHBhcGVyaDE1 WCZeGH7japsxZDxzEK amAJCwlyO1XDHgsHJy I4LrXQSjDK5gkgtrZD C1PPpfiN9bbxENAmli Ny2iwGCfpAbzZrPwAo NoYXJzZXQwXGZuaWwg FRBjUMw0yV2RLoclK9 5be2E0Daj1YTEdMZMl G6GkCY0yOWPxmCRxQ6 6PGhfbARK9UUBKIift HOFnYE5Jw2trJUOyvV ZjXMK7KHougVZjMFIy GOJbYPk1ITZbGNskkR GdLH4dlNrnQypizUya q0PtrYYmPQvbRUYyGQ TcWTjgUJCiIE4AVsFm LMEeYTZ3IEyaTAv0VE b6OG6HRvKeFWWiRRt2 ZBuiHzFxYPi0MQoaBJ 2RGMm4Oxy4CuG4KFY4 SIJ6NQGcZPBtHfHbYL YgQXJpYWwgXFxmcyAx MCBcXGZiIFxcZmwgXF fwS92bmQylqQ2tDrwp qhKoRCG4LMAptzUWRq xwbGFpblxlcGljTmVz dERvYzEgDQpcbHRycG FyXGxpbjBccmluMCAN ClxsdHJjaFxjZjFcZn MyMCAxIERpZmYgUXVp xikvKPZYBDHzV8ZjtM 6aV2ylEYLfEQAzioNI PmJ3UQ3rAlToqMBcyZ IssExhMyljfUZ6EPii GekeyB4qzXXMMGDFEl kKHebyamPsTD7VXQZR UyNVEF69EsG7MpM3LH wxfXtcZmxkcnNsdCBc JjQLkW8npIfilIWmhL NinN33JUfxJEMrl8Pj S2Lcw8ccvQEwOAxmVq uxvKCtvoX2IJbKUGBG ODqAIjPjFD3rVLqSTI RCRUdJTnwyfXtcZmxk bzEmoNHhXgJNtO4muZ 9cb1bjkBUxXShnChsr cUHmhrA6JGqZTTWSRD rXUpVyTJ9zJKtFYKGQ VbS1Sf50JRJmXHOsyW SuNQxiQ661ITThVRmp SBo4pmWeVGRhb3NwM5 EwE6GjEHTwCvUoYTWz oLxuu0hurBIoMAkoRu vcwLJzpfU0BLfQVTON MJkIKxBzXJ8aHKzPF8 REVhT0LuN7ViM1TLua fXtcZmxkcnNsdCBcJz VLlD4wuPcepA9vzSYb Z9hzG7StYUUhObLnrX JpDP7XYVPew4NsE9A3 OMRdTYcqy2thFAQmZW dpu6YdIMsMCMQUOB2I AL3gqHP9ZUzZNLQIM5 vGpYW9DpBprIQ0S954 XGZsZHJzbHQgXCcxQ3 53F7YiO6lgSR9aZ41d O7AsfZFlgDIsXZF5BI A7hF7uUW15xggyuPkf iAizdeF7RSLputmdjU J9BEFsHTovz1rrFOKs QPwiy7CyYKoFHQWUCI 2EVB0evUZ0KVwTIHHL QHmePZR7GCjedZI6p1 mygCXgj7x8LDacOGM0 fVxwbGFpblxsdHJjaF xjZjFcZnMyMFxwYXIg FNtGuNLkqYr6NUhvgu EHGJNRQUbKY4XuIVYX ZHLAURWdQnRLOD8yDm T8LyV1ZI30IbfgXiY4 VpIuxJI7WEPPSUWMQD tFI8AyAAAGOIMYNCZm YX0GNEhRYPFCWRXXE6 2QEQODCTHUQ3EHV5cI KVNci8AuixyHESvDM3 ZPPE4NVIPATGWIXW7P XoRzYYgFZ4LSY2gKND JfTUVUQURBVEFfQkVH KH6yCXo7Wuk2bFR1Jl T8WkR3WtlkAA7tKVxM k78pBI60fgI2gL1xWI JwU1pquHH1MWdnAJI8 KAb7SdPeGDWjmDBuCW NvbmNlbnRyYXRlZCBi tCQzgHOrP4UpiVVjQm UcJWFuq80soNVyiT3v tMZgRtgjSC9pWUqKW3 LKW8kANCLiVRFKINOY GCSuXA1XEBxTBK2FIH JfTUVUQURBVEFfQkVH IX5vNVcHWG9HGLJxAO FKTTHRLDHzTJ9XLAJL GA9HUIGHIALRM59DDZ HLGMSGC3AXM3lUIJOZ QWBFVzHSBsDVXN3QRC VRMVNEGW7GCsNWKqvy bGFpblxlcGljTmVzdE PzThIuxEzbuK81VXBx tZBkNRB5GZ4dBQDtoj quDAUlWFYkAID6UVvx xD05cQErDBQqKHAhgF GhfL9RFQEcCMZ2XEqa gK14mIPjNN5RTIDoVW B0MGXcrOFkXIK0AA2z fQ0KfQ== Major Classification (test NF[facility]/benign code = 9839) Diagnosis (test code = 34) k8lrfCUtKKYjfIE0HT QlBMKxd7cnk4AigOKy cGFyXGpleHBhbmRcbm 71oGU0qM09ZX1iXISy NmW1HZPpuvL0Fzv2AK XuXOUqeIBeI081n7ty w6ieguYahGN9XOBtJU DpC3BnKH5rNSLfsKQg P41zjEPlXSR2JIZiGX EckREkODZwUIJ8JEDk oCOeT0gqEQMrPD8qyu dyMTgwMFxtYXJndDE0 YGVhaESsT7FtAUIkDO ajCFRdaku8OhImQt0k dGVyeTcyMFxwYXJkXH ReKYsgTMLrBlNmT9Hm FGKeKCm5apxrNVEuW2 d6VWWjzAZxVHrjYbYi NPMak75geH6okFSmx0 kcgkHkFXDtG8K3NLVz qvj6WHXiiPOwQNjfXe IwXGxpbjcyMFxjZjAg Er2mfLTjdEyuAG16ML FkeDlrMKpmDM43hBGm UKTeiABkTN5uUGGiio ZlONUiRB8kPKJsqVUc IEdNUyBzdGFpbiwgbm TeCIGystWyAu1wSQV9 nzhoyEXpw6CopnPpnG FyIEdNUyBzdGFpbiwg biMxCISnlpYiTs8jHA JnEGCzj3P0t6Ale8bw YXIgSXJvbiBzdGFpbi bpOVAwQQ71vXYwpHdu bmVnYXRpdmVccGFyfQ == Comment (test code = 9835) c2bxeCBwREQwtMY1KO QqXKCun5lkc2MthWAj cGFyXGpleHBhbmRcbm 77kDN9kH94HE1uKNIy BvX5BWWixkR6Ryk0NL HcEFApaCTgC483v6sx c5pnlvQtjBP9bLxgSN RtmebeEeC3WRlvPUGv gkiaYRe4DJzgCNFipL D0OAOjhAGzP0YuJDXi FJ2fwud7RIR3ASuiMP UjEpS5AODjoPQuMLAl cLsmIPzxe235JVM7Pj QoNGZefjSvlJizwX9x LeWmHYCXo625hl2lxa ViowTpXTLuxv9cxinw dGUuIFxwYXJ9 Retained/Biomarker Testing g4ffiGDpXBLmhEX7RM (test code = 9838) JxYUBid1atb1RawCTi cGFyXGpleHBhbmRcbm 06mQI4hR52LA6hCVVj SwX2CHOwlcR2Usc2FQ NpOUTltSDaR376y0ov x8cdgdXadEK2rWgyEI QkjtjiFrY5VMhrABWx wscwYPo5LRmbWQFpvW R0LTAdsFWbI6QuGZBq VW0mcwx7GSF2VWauBV QwVkO7PWAilDLsHIAo oPwyYJnfx246TGE3Hz UdGEIsxvRrhRsruR7x ZnMyMCBTUjogMiBTLC AyIFNQIFxwYXJ9 Informational Points (test o7pmjFDnMVUxhBQiYi code = 9836) RkBSTcVORjo0bvXDTr bGFuZzEwMzNcZnRuYm gvaCJhZOPqUmQmz0zf g117hUXyj8clKGRbLw S7oFUiEIFjiYKaP341 DCTcHUokt6qbt1ScTV MqgUJbl5B5PMWCJGiv XPKWYDz7g0uiDmHwVx A4qFWxZNikS1hcbxLd yHFxYXZuTVo2aJ90MI LueG6njDDdXWpbexXl WyX7JCzdQSFfOrA4EE AnyPKwBRSxN4diHHMh XGdyZWVuMFxibHVlMC Y3eOyaf6P5dZCpfMMg dHtcZjBcZnMyMiBOb3 PpMJk7yNqpX0LtTNRe UcN5zBFgKIQeEKopTZ JfCKGutnS7uL33ZTek pcY4kOFga4Aji79ex3 92dJ3aiRSlXMH7RIAp ELVpnOIsBLNyEUW9CY GblSThH7qvXJBcIC0l cmdyMTgwMFxtYXJndD M1FEAaaBVmO5ZpLSLa MVmmQERbjmj8YaWuTq 7wvNDvaOihQDdjz0jd h5koaKEqSpa1ZVRyDk EgWtdwAWigt6Hud4ci VUKxgc0xJYS9qEIlnG jgo2B8eQFgKLJmwVTu ptKcECLyEdB4JPpdUM 5bin15JNYgPJG1kq8z bGNccGdicmRyaGVhZF qsQ7MyOOVsz403DTNd F0EtPHVjt6R2wlOlNz PhCVTenOB0iyV4RHQe YVz5fNBowlT6nmIkbZ TmZ3ftmY9gTIAiQI9u avqql5fbTZyoBUnvGZ MgmXJ2zcJ0IDHmmEVc E6CilV1gEUGuRFcdPU Qugjr8KwOoWf4vuPRt eTcyMFxzYmtwYWdlXH BnbmNvbnRccGduZGVj XHBsYWluXHBsYWluXG YwXGZzMjRccWxccGxh lZ3dTiCvJsWcQMrnMI 9hQRLdT8luhXEtDQYi ICMgW4nbAgSchN9nsI dmPCscewB3EIbnG91b LOL4EGP3rsMuASMvmd NqJPWcYXRnNM2xvLEy EOVvJGOiHB4xLYI5WG xvcGVkIGFuZCBwZXJm x8PfTX1rPSKpgMLqSD I4TCJap3QwM9YiRNY8 ALBwsN6kBQWdrAGRCS BNRCBBbmRlcnNvbiBQ NKYdi4rxZ2nnGI5jXI dyVt0kWIFlrtnrVKXg aWNpbmUuIFRoZXNlIH Fhq2ZdPLvnqdCkra04 KGShVL3dk0CtD2vyeH XhgJk4PCHrBVMbFPVt f1FrBFFeuo37HQXrTm qvdCpsLBVcGh2eZv3s SKRmlkPgBRC9AuUEUN 1qvxhziYVqsEyvuz1s XHBsYWluXGYyXGZzMj JcbGFuZzEwMzNcaGlj aFxmMlxkYmNoXGYyXG uzK6hnMuKkAlMaRcnj YXJ9 [facility] Non-Lead Material Handler Interpretation 2020-10-02 23:36:05 Test Item Value Reference Range Interpretation Comments Gross Description (test a7cqmFWkHOTjuOGIRV code = [id number]) QfB5jqeiAfZCVrgXHk B1KvpnigLFssHY6vYK 5isNozlHEuyVVvSG2M XGRlZmYxXHBhcGVydz EyMjQwXHBhcGVyaDE1 YBHoBF2idyalXTnnVM zqDDNskfY3UKLwzROe I1ZqIPToZQ1wszkrPA J3PRtreF6mkzSIEthk Rs5tySTvpIqcYpRpIr NoYXJzZXQwXGZuaWwg CSQrHNp3tN3CYhexS9 3ua1Z9Cwm8FYPwPBUi M9QmZF4jTDFexRXkI0 5TOylhQOB6PUZPFqin HORjUA7Ka4ldVWQvyX BfBXU8KEbvbQAlUWNq GTRyQRe0QRVlZPcfrF TaJU8yjAseIsbegBcl c7GmmBWjXPoyNRCqUN YeEEfqDYTaZP1YJtGb PEWeYJZ2PMksQYb5QZ i1UC1LYtImLMYxXXn0 JModLmMeKLd3BOboUP 3RYTi3Yzn1RbI0KJL8 EZU6OKQhPWWfDcReAF YgQXJpYWwgXFxmcyAx MCBcXGZiIFxcZmwgXF hoJ67ehIrfmO3iXntu wjIhHCD7RFUlezJUTv xwbGFpblxlcGljTmVz dERvYzEgDQpcbHRycG FyXGxpbjBccmluMCAN ClxsdHJjaFxjZjFcZn MyMCAxIERpZmYgUXVp vlzhCCIYMARiH5FgcT 5gR4pxQSMlTPQltyZQ MxX4HV7pAmGliWTahF LhhMvnJmbxqIC3JOug ZrwdhZ7vsWRUXXGUGg xADoerryVcDP2BIAGP HcKJST92PsZ1EfP6PL wxfXtcZmxkcnNsdCBc KlICpM1enLznzQJbdO SqvM91QNmnPGLze9Hh F5Zaf7vnnDJzNGsqGo qfgBMwvrD5RAfKRGTU MVnFCdVbEH8zPPoMJG RCRUdJTnwyfXtcZmxk ocVtmQFgRsSFoS4puV 4ux4nsgOHlCRogTuaz xNSvojS3BKhXXNUQAL tQEdWbTM9hEDhMMZCH VoT5Ja24ZRInYIStcJ UmCGdvZ695JHMcZZka XXn6zsLlNGOzn8EbB6 SlN4LbRJRySvXuMJWd vBakx2dmfTCqCBtpPo mwlSYqpfG7TSmIBNVO DCtECtPyPL1gLVeNT4 LGZqP1GxQ0UuK5DWre fXtcZmxkcnNsdCBcJz UQsM8fgCtxgI9clKLb E0wtK7JhGTOjTzLipG TnIG9KFZNaa4XvO2K4 NFSkIAgde3psWYYdFN lji9NlIOyDGZTSSW4X QE4ndDV9QCtQTNKDJ5 dJnVC2RcXbgFJ9S914 XGZsZHJzbHQgXCcxQ3 65M6GzS5wyEM0jS81h Y6TctRZwpTJwHVH0IB X4iH7vPQ41wnsjlRuu yTlinuT9LHIpccxdeM L3VILvRFfej1zbCGXg IJzdk4RcILlYANHTOC 1WCH9kwFH1FCfEHTDD JAqkOZP6ZIxszYB4f0 cxvTUvm6p3LTimFVY7 fVxwbGFpblxsdHJjaF xjZjFcZnMyMFxwYXIg GEvWbIRuzHl8KRpmwd ZMBGLPNQsKC4EdPRHS MQGLOOQxLdTOVI5lXu H5CrK6UD45PdsaKvH0 FjGbeVM0PNYWWUKHIP bZH1GbZAKVXLSMMWGs VR4GPKuPLBRMFHHOQ9 4OCXORXQPPI8CLN4jH DWNzi0NmsarHPMiPE6 VKPW2XVCOPXFPUOU7J WiMqAItDH4WVQ6aXMG JfTUVUQURBVEFfQkVH RG5qDFt6Ded7jHF7Dr U1GyP9FsbfJC2sTZqB s68dWT22vuF9iM0mDZ ElK9mdwBX7DDcaEQC5 OFu4CoQhNVKfcSPxEK NvbmNlbnRyYXRlZCBi hJSlcVTyO7IuvGLaWe ScCUTvs05icIOzcM4p gCAlFpqxOM8cTFbPQ1 UEZ8qWMIZdGCQSTPVW FIWdFJ5JUBeTBT5GJX JfTUVUQURBVEFfQkVH MX3lLOpCNI6ZJHEvDA PQMPEUFDDpNG4WFABX SF5UXAFNBDKFZ70UVP OOLWAIC3XKP6kWYXAX CTWZLtPTAkXPSV4OGW DWSUISHN1BIyUYCsli bGFpblxlcGljTmVzdE XpTpGysLuepR60CCWb qBPuJWV4AX2fWBKzke tvAPKpEVTdIOV4SDcf kX51gJMxMSPnBFEqfX PpuU0SPUUaTBJ7ZYog dS55kWMvGA7VOCTkPQ M3PJYquXHqNUN8BA3f fQ0KfQ== Major Classification (test NFMC/benign code = 9839) Diagnosis (test code = 34) c1gtjPBbHOEfjIH9RC RtSWOcy6wqq2MkhOKb cGFyXGpleHBhbmRcbm 03wDF9sD62ER6gUAJm MyX3XPChmxW8Bhz9GI YtFCNniGIsJ498c9uc f9qomiHinEG9LUOqRQ StY4TeAJ8lUFTdlNLw F01eqGXdPFB0IEInTU EmuYSpFVEnJXE9XCZf qCKkJ1zsGOCrKA8pak dyMTgwMFxtYXJndDE0 PYXvnXBwR5YdPAMzPN rjSMAzniq8HyOoPq8t dGVyeTcyMFxwYXJkXH GzHYouCTLcQzCoM3Ze SVSnPKl3vkegCRMbY6 z5AHCegGUiLCnqZrCk SPZuk30rnQ9kzHPkb5 rdvmCgLKCiA0N4BHFb nil7NKAdoJUqXItcMy IwXGxpbjcyMFxjZjAg We1ktLTlkJnjFI91KZ UjrSsnPExdFB76sTRj HSPyuAYoKV1wHBLqon MjTDUzPK1yGXJtjTLa IEdNUyBzdGFpbiwgbm UuTPGqdnOmIa8yVYV7 bskmvAVns2BdtmNdiT FyIEdNUyBzdGFpbiwg huViJAWiraInSy7jOH EdBKNxd9A9r0Kiu2xn YXIgSXJvbiBzdGFpbi dmIPIsAV07tKIbvFeh bmVnYXRpdmVccGFyfQ == Comment (test code = 9835) x8goyIRsUHGjjYM6YB ZrMPAxb5ioa1JmhXYr cGFyXGpleHBhbmRcbm 64hUF0pQ11CQ6jKYKn YwP1VBMylrH9Sni8YY HtQKQiyZAqW309b2xp o2rfkjInaDO5zOyeGC WvzawaYbG2TIsjWJDj nwinJHm8JCsuNKQiqM E3QLDnxUReC9CsKACt QV7meqy2TBI3ZWpjRP JhBdF7VKNuzVFjFRNh lDdwYVpnb767CZV3Ph IrVSXnieJpnNyhjN9y LhPwSYEQg454gy9jio FcmyBiOHMckv0gkont dGUuIFxwYXJ9 Retained/Biomarker Testing o4mqyLVkVNUciVK5FD (test code = 9838) GzVFQyn4klo1WzaNUg cGFyXGpleHBhbmRcbm 51cZH5sA41IV0sNHXv WuJ7IQYstqI8Nzi5LE SqLWGbdWRhK937r9mv m3pcbcBngGA2mRacET JupthfZsO7OCitZJWs llotQNo7CPbzIMLziT Y7LCRywYGqP9HbDVMn CY5dzun9WAH4HYgyLG OhBcT9CLYdoZIyFPGb rAnlXPthb196EYR3Qr UsRSKuogTfvUhquT0z ZnMyMCBTUjogMiBTLC AyIFNQIFxwYXJ9 Informational Points (test s0jouCBbGMYdnCBbHu code = 9836) XaDPHcZRHhi7sdUVIj bGFuZzEwMzNcZnRuYm dkwELzUKJnXiWuk7pu s213gYGlp0znBKBzUm O8dRUvCVWsuLXeB346 XKNaLSmta3vjd5FmQP TlaOUxw5P7AQWIHFnt ILDOXLh3i5ibZiFrIn P2eOTkSXamJ9bmxpQb rLGpFXDaBYd3lE50HZ EpmI3xeUWbNLjklfDa PdB4HYroOCBeXbB7EI XwxBTqSARmS4knQLEi XGdyZWVuMFxibHVlMC Z2tEwjo8R8cMFvgMTs dHtcZjBcZnMyMiBOb3 LxMIh1tZygK4MbWAFx ZvH8xCCnTYAuGRfzAC RkSIFoyfQ8aF91BXji jqC8vLAut2Zmy64ov9 57mY2glWXsNFS9XZPq BLJicSObVUWwRPW6GJ ZxfAGuY1qxYSXfOE2r cmdyMTgwMFxtYXJndD M3YHLxgZRqX5YuPFBn VBgkDKZmbqe4CoWoUy 5knVAuiNamQZkmm9dd x6vvnUSuYgm5KCZzFd XvEqfxDTecm5Bvy7or KYIykv7cLRZ4aZYatO qov1G9wHKkUUZppMOy kjOgLSKeQaM8NUubTC 8cxm51YLOaUKO4qz4a bGNccGdicmRyaGVhZF zgW9QaBVMrx875UMCk X5MgZLBfc8N4xxZrTy CoAZEepXV6hgW7NYAi UQr6aQWqpdB9bgDdrN GwK7bgoY2pTTTtEU9c nnjdo6trNSqvKByjVY ZnjDP8zcC3EKOkjDPd H4ElzF5tWTZwMThoQA Rglce4YqEbHu4xgQCw eTcyMFxzYmtwYWdlXH BnbmNvbnRccGduZGVj XHBsYWluXHBsYWluXG YwXGZzMjRccWxccGxh jA2mXiUwVdAcVFcgBW 9fDXIaK8nucLThXRHr CXCsP7hfLlHsaG3ltI blXCupiqQ2GHbhH10m YBK0EAK8clYoTOUpko PxEVXbRLUoSS7hcIDv BMGhUVDeHG1gNVE5OW xvcGVkIGFuZCBwZXJm q1WzYF4pECXxtTIkTY G7TZBea4QxE0HbNEZ8 YGFhbC3vYPOobVYWQM BNRCBBbmRlcnNvbiBQ YGVzl0nnW9btSI4uJJ zeDe3yIZNbzkrfTWHu aWNpbmUuIFRoZXNlIH Dzb3DeZDgofsQxgq29 BEQkAG0rm8RgL4hlqM YcmJk0OXZcDKTwFOCw o4GmYQNnmu10VSOkCy fzaAobMTLkPf5mVl3i AIAbzqJvKOS7ElRPAI 6qomxdhMFhqPgmmg7p XHBsYWluXGYyXGZzMj JcbGFuZzEwMzNcaGlj aFxmMlxkYmNoXGYyXG knE3xkUeFdSkJhKbaz YXJ9 [facility]neum[facility] j[facility]vec[facility] Quant, BAL 2020-10-02 14:08:45 Test Item [...] ped and its performance characteristics determined by [employer]. It has not been cleared or approvedby the U.[place]. Food and D rug Administration. Results should be used inconju nction with clinical findin gs, and should not form the so lebasis for a diagnosis or tr eatment decision. Perfor med At:[facility] [address] [place] [address]Lrqiqgavpq Director: Carroll Bill Ph.D ., BCLRobert (ABB)CLIA#: [id number]: DARCI (test From [facility] and code = DARCI) [facility], BAL 2020-10-02 14:08:45 [...] ped and its performance characteristics determined by [email or web address]. It has not been cleared or approvedby the [place]. Food and D rug Administration. Results should be used inconju nction with clinical findin gs, and should not form the so lebasis for a diagnosis or tr eatment decision. Perfor med At:[facility] [place] [address]Aymwwzbjik Director: Carroll Bill Ph.D ., BCLD (ABB)CLIA#: [id number]: DARCI (test From [facility] and code = DARCI) [facility] FlorencePneumocystis jiroveci Quant, BAL 2020-10-02 14:08:45 Test Item [...] ped and its performance characteristics determined by [email or web address]. It has not been cleared or approvedby the U.S. Food and D rug Administration. Results should be used inconju nction with clinical findin gs, and should not form the so lebasis for a diagnosis or tr eatment decision. Perfor med At:[facility] [address] [place] [address]Txegitckjf Director: Carroll Bill Ph.D ., BCLD (ABB)CLIA#: [id number]: DARCI (test From [place] and code = DARCI) [facility] [id number] 22:30:33 Test Item Value Reference Range Interpretation Comments T4 Free (test code = 7502) 1.11 ng/dL 0.93-1.70 [facility] 22:30:33 Test Item Value Reference Range Interpretation Comments T4 Free (test code = 7502) 1.11 ng/dL 0.93-1.70 [facility] [id number] 22:30:33 Test Item Value Reference Range Interpretation Comments T4 Free (test code = 7502) 1.11 ng/dL 0.93-1.70 [place] [id number] 22:30:26 Test Item Value Reference Range Interpretation Comments TSH (test code = 1.11 See_Comment [Automated message] The 7578) system which ge nerated this result transmit jigar reference range : 0.27 - 4.20 mcunit/mL. The reference range was not used to interpr et this result as sonido l/abnormal. [facility]26 Test Item Value Reference Range Interpretation Comments TSH (test code = 1.11 See_Comment [Automated message] The 7578) system which ge nerated this result transmit jigar reference range : 0.27 - 4.20 mcunit/mL. The reference range was not used to interpr et this result as sonido l/abnormal. [facility] 22:30:26 Test Item Value Reference Range Interpretation Comments TSH (test code = 1.11 See_Comment [Automated message] The 7578) system which ge nerated this result transmit jigar reference range : 0.27 - 4.20 mcunit/mL. The reference range was not used to interpr et this result as sonido l/abnormal. [facility] 05:53:04 Test Item Value Reference Range Interpretation Comments pH Dom (test code = 7.27 7.32-7.43 L Results are 2746-6) corrected for a body temp of 37C pCO2 Dom (test code = 43.9 See_Comment [Auto mated message] 2020-06) The system [employer] generated this result transmit jigar reference range : 41.0 - 51.0 mmH g. The reference r louis was not used to interpret this result as normal/abnormal . pO2 Dom (test code = 44 mmHg 2705-2) HCO3 Dom (test code = 20 mmol/L 21-28 L 91504-6) Base Excess Dom (test -6 mmol/L -2-3 L code = 1927-3) O2 Sat Dom (test code = 67 % 6513) Lab Interpretation (test Abnormal code = 10579-7) [facility] 05:53:04 Test Item Value Reference Range Interpretation Comments pH Dom (test code = 7.27 7.32-7.43 L Results are 2746-6) corrected for a body temp of 37C pCO2 Dom (test code = 43.9 See_Comment [Auto mated message] 2020-06) The system [employer] generated this result transmit jigar reference range : 41.0 - 51.0 mmH g. The reference r louis was not used to interpret this result as normal/abnormal . pO2 Dom (test code = 44 mmHg 2705-2) HCO3 Dom (test code = 20 mmol/L 21-28 L 04597-2) Base Excess Dom (test -6 mmol/L -2-3 L code = 1927-3) O2 Sat Dom (test code = 67 % 6513) Lab Interpretation (test Abnormal code = 53811-0) [facility] 05:53:04 Test Item Value Reference Range Interpretation Comments pH Dom (test code = 7.27 7.32-7.43 L Results are 2746-6) corrected for a body temp of 37C pCO2 Dom (test code = 43.9 See_Comment [Auto mated message] 2020-06) The system [employer] generated this result transmit jigar reference range : 41.0 - 51.0 mmH g. The reference r luois was not used to interpret this result as normal/abnormal . pO2 Dom (test code = 44 mmHg 2705-2) HCO3 Dom (test code = 20 mmol/L 21-28 L 82753-9) Base Excess Dom (test -6 mmol/L -2-3 L code = 1927-3) O2 Sat Dom (test code = 67 % 6513) Lab Interpretation (test Abnormal code = 09820-3) [facility] fresh frozen plasma:Transfusion Date: 09/30/2020; Transfusion Indications: Prothrombin time gre ater than 18 seconds; G701, 2 [id number] 21:03:55 Test Item Value Reference Range Interpretation Comments FFP Product Ready 2 Fresh Froz en Plasma (test code = 71774-4) Availa ble - Order Form 03 when re will for product iss ue. Unit Number (test [id number] code = 7002) Product Code (test F2806L10 code = 7003) Unit Expiration (test [id number] code = 385229) Unit Blood Type (test 6200 code = 7004) Product Code Text PLASMA IR CPD (test code = 514727) Unit Irradiated (test IRRADIATED code = 301796) Dispense Status (test ISSUED code = 7001) Unit Blood Type (test A Positive code = 7005) Product Engraving Plate Maker .BPAM Location (test code = 939168) [facility] fresh frozen plasma:Transfusion Date: 09/30/2020; Transfusion Indications: Prothrombin time gre ater than 18 seconds; G701, 2 [id number] 21:03:55 Test Item Value Reference Range Interpretation Comments FFP Product Ready 2 Fresh Froz en Plasma (test code = 64979-3) Availa ble - Order Form 03 when re will for product iss ue. Unit Number (test [id number] code = 7002) Product Code (test X6795A51 code = 7003) Unit Expiration (test [id number] code = 511624) Unit Blood Type (test 6200 code = 7004) Product Code Text PLASMA IR CPD (test code = 371220) Unit Irradiated (test IRRADIATED code = 538931) Dispense Status (test ISSUED code = 7001) Unit Blood Type (test A Positive code = 7005) Product Engraving Plate Maker .BPAM Location (test code = 521353) [facility] fresh frozen plasma:Transfusion Date: 09/30/2020; Transfusion Indications: Prothrombin time gre ater than 18 seconds; G701, 2 [id number] 21:03:55 Test Item Value Reference Range Interpretation Comments FFP Product Ready 2 Fresh Froz en Plasma (test code = 08658-9) Availa ble - Order Form 03 when re will for product iss ue. Unit Number (test [id number] code = 7002) Product Code (test J2336W29 code = 7003) Unit Expiration (test [id number] code = 116402) Unit Blood Type (test 6200 code = 7004) Product Code Text PLASMA IR CPD (test code = 584852) Unit Irradiated (test IRRADIATED code = 956748) Dispense Status (test ISSUED code = 7001) Unit Blood Type (test A Positive code = 7005) Product Engraving Plate Maker .BPAM Location (test code = 348387) [facility] Product Ready for Engraving Plate Maker 2020-09-30 16:12:10 Test Item Value Reference Range Interpretation Comments FFP Product Ready B2 Blood Bank Product i s ready for for Engraving Plate Maker (test picking table worker on September 30, code = 531464) 2020 11:12:03 CDT. [facility] Product Ready for Engraving Plate Maker 2020-09-30 16:12:10 Test Item Value Reference Range Interpretation Comments FFP Product Ready B2 Blood Bank Product i s ready for for Engraving Plate Maker (test picking table worker on September 30, code = 951549) 2020 11:12:03 CDT. [facility] Product Ready for Engraving Plate Maker 2020-09-30 16:12:10 Test Item Value Reference Range Interpretation Comments FFP Product Ready B2 Blood Bank Product i s ready for for Engraving Plate Maker (test picking table worker on September 30, code = 198638) 2020 11:12:03 CDT. [facility] [id number] 09:19:04 Test Item Value Reference Range Interpretation Comments CK (test code = 5206) 138 U/L 39-308 CK MB (test code = <2.0 See_Comment [Automat ed message] 5209) The system [employer] generated this result transmitted ref erence range: [...] res ults. [Automated mess age] The system [employer] generated this result transmitted ref erence range: <=18. Th e reference range was not used to int erpret this result as normal/abnormal . Lab Interpretation Abnormal (test code = 24721-8) [facility] Glagn6679-06-25 09:19:04 Test Item Value Reference Range Interpretation Comments CK (test code = 5206) 138 U/L 39-308 CK MB (test code = <2.0 See_Comment [Automat ed message] 5209) The system [employer] generated this result transmitted ref erence range: [...] res ults. [Automated mess age] The system [employer] generated this result transmitted ref erence range: <=18. Th e reference range was not used to int erpret this result as normal/abnormal . Lab Interpretation Abnormal (test code = 62623-3) [facility] Yrsft5517-10-15 09:19:04 Test Item Value Reference Range Interpretation Comments CK (test code = 5206) 138 U/L 39-308 CK MB (test code = <2.0 See_Comment [Automat ed message] 5209) The system [employer] generated this result transmitted ref erence range: [...] res ults. [Automated mess age] The system [employer] generated this result transmitted ref erence range: <=18. Th e reference range was not used to int erpret this result as normal/abnormal . Lab Interpretation Abnormal (test code = 43376-2) [facility] [id number] 20:04:48 Test Item Value Reference Range Interpretation Comments Diff Cancelled (test See Note Due to low WBC, the code = 8954) differential wi ll not be performed and i t is not possible to michael culate ANC. [facility] [id number] 20:04:48 Test Item Value Reference Range Interpretation Comments Diff Cancelled (test See Note Due to low WBC, the code = 8954) differential wi ll not be performed and i t is not possible to michael culate ANC. [facility] [id number] 20:04:48 Test Item Value Reference Range Interpretation Comments Diff Cancelled (test See Note Due to low WBC, the code = 8954) differential wi ll not be performed and i t is not possible to michael culate ANC. [facility] Viral Panel + COVID-19, Nasopharyngeal [id number] 14:00:06 Test Item Value Reference Range Interpretation Comments Adenovirus (test code = Not Detected Not Detected 3128) Coronavirus 229E (test Not Detected Not Detected code = 5349) Coronavirus HKU1 (test Not Detected Not Detected code = 5350) Coronavirus NL63 (test Not Detected Not Detected code = 5351) Coronavirus OC43 (test Not Detected Not Detected code = 5352) COVID19 (SARS-CoV-2) Not Detected Not Detected (test code = 18835-4) Human Metapneumovirus Not Detected Not Detected (test [...] Detected Not Detected Parapertussis (test code = 87734) Bordetella pertussis Not Detected Not Detected (test [...] including SARS-CoV-2, from a single nasopharyngeal swab (DYNAMITE RECLAIMER) specimen. Specifically, the SARS-CoV-2 primers contained in [...] high-complexity tests. [facility], CLIA Accreditation #[id number] and CAP Accreditation #[id number], verified the performance characteristics of this assay. [facility] performs the assay using the [employer] System. Internal controls are used to monitor all stages of the test process. [facility], Nasopharyngeal [id number] 14:00:06 Test Item Value Reference Range Interpretation Comments Adenovirus (test code = Not Detected Not Detected 2458) Coronavirus 229E (test Not Detected Not Detected code = 5349) Coronavirus HKU1 (test Not Detected Not Detected code = 5350) Coronavirus NL63 (test Not Detected Not Detected code = 5351) Coronavirus OC43 (test Not Detected Not Detected code = 5352) COVID19 (SARS-CoV-2) Not Detected Not Detected (test code = 14645-5) Human Metapneumovirus Not Detected Not Detected (test [...] Detected Not Detected Parapertussis (test code = 06401) Bordetella pertussis Not Detected Not Detected (test [...] including SARS-CoV-2, from a single nasopharyngeal swab (DYNAMITE RECLAIMER) specimen. Specifically, the SARS-CoV-2 primers contained in [...] high-complexity tests. [facility], CLIA Accreditation #[id number] and CAP Accreditation #[id number], verified the performance characteristics of this assay. [facility] performs the assay using the [employer] System. Internal controls are used to monitor all stages of the test process. [facility], Nasopharyngeal [id number] 14:00:06 Test Item Value Reference Range Interpretation [...] Not Detected Not Detected (test code = 17857-4) Human Metapneumovirus Not Detected Not Detected (test [...] Detected Not Detected Parapertussis (test code = 30606) Bordetella pertussis Not Detected Not Detected (test [...] including SARS-CoV-2, from a single nasopharyngeal swab (DYNAMITE RECLAIMER) specimen. Specifically, the SARS-CoV-2 primers contained in [...] high-complexity tests. [facility], CLIA Accreditation #[id number] and CAP Accreditation #[id number], verified the performance characteristics of this assay. [facility] performs the assay using the [employer] System. Internal controls are used to monitor all stages of the test process. [facility] [id number] 13:00:00 Test Item Value Reference Range Interpretation Comments CULTURE (BEAKER) (test No growth in 5 days code = 1095) BLOOD [id number] 13:00:00 Test Item Value Reference Range Interpretation Comments CULTURE (BEAKER) (test No growth in 5 days code = 1095) CT, BRAIN, WITHOUT [id number] 12:22:00Unlisted Reason for Exam - Click Yes and Enter Reason Below->No [facility] 1950 Sex: MFINAL [...] MDReport Verified Date/Time: 09/11/2020 12:22:16 Reading Location: [facility] C013 Neuro Reading Room URINALYSIS W/ [id number] 11:21:00 Test Item Value Reference Range Interpretation [...] 1663) SOURCE(BEAKER) (test code = 2795) TROPONIN [id number] 11:12:00 Test Item Value Reference Range Interpretation [...] failure, acidosis, acute neurological disease, and persistent tachyarrhythmia.Catering Operations Manager ID - [id number] ACID, VENOUS 2020-09-11 10:57:00 Test Item Value Reference Range Interpretation Comments LACTATE BLOOD 1.55 mmol/L See_Comment [Automated me ssage] VENOUS (2) (BEAKER) The syst em which (test code = 2872) generated this result transmitted ref erence range: 0.50-<2. 00. The reference range was not used to interpr et this result as normal/abnormal . Catering Operations Manager ID - [id number] ID - [id number] ID - [id number] ID - [id number] CBC W/PLT COUNT & AUTO [id number] 10:43:00 Test Item Value Reference Range Interpretation [...] (BEAKER) (test code = 2801) COMPREHENSIVE METABOLIC [id number] 10:43:00 Test Item Value Reference Range Interpretation [...] S NOT APPLICABLE FOR DIALYSIS PATIEN TS. Catering Operations Manager ID - [id number] ID - [id number] ID - [id number] ID - [id number] ID - [id number] ID - [id number] ID - [id number] ID - [id number] ID - [id number] ID - [id number] ID - [id number] ID - [id number] ID - [id number] ID - [id number] ID - [id number] ID - [id number] ID - [id number] ID - [id number] ID - [id number] KINASE (CK)2020-09-11 10:38:00 Test Item Value Reference Range Interpretation Comments CREATINE KINASE TOTAL (BEAKER) (test 266 U/L 40-250 H code = 380) Catering Operations Manager ID - [id number] TIME/[id number] 10:34:00 Test Item Value Reference Range Interpretation Comments PROTIME (BEAKER) 10.9 seconds 9.3-12.0 Final Infor mation (test code = 759) (Auto Outp ut) INR (BEAKER) (test 0.98 See_Comment Final Inf ormation code = 370) (Auto Output) [Automated mess age] The system Stack[employer] generated this result transmitted ref erence range: <=5.90. The reference range was not used to int erpret this result as normal/abnormal . RECOMMENDED COUMADIN/WARFARIN INR THERAPY RANGESSTANDARD DOSE: 2.0 - 3.0 Includes: PROPHYLAXIS for venous thrombosis, systemic embolization; TREATMENT for venous thrombosis and/or pulmonary embolus.HIGH RISK: Target INR is 2.5-3.5 for patients with mechanical heart valves.[id number] 10:34:00 Test Item Value Reference Range Interpretation Comments PARTIAL THROMBOPLASTIN 22.8 seconds 23.0-35.0 L Final Information TIME (HAYDEEAKER) (test (Auto Ou tput) code = 760) POCT-GLUCOSE [id number] 10:29:00 Test Item Value Reference Range Interpretation Comments POC-GLUCOSE METER 106 mg/dL 70-110 : TESTED A T SLSL 1317 (BEAKER) (test code [address], = 1538) [facility] 77 478: Catering Operations Manager/Techni mae ID = [id number] for Dandy ReneIrene RAD, CHEST, 1 VIEW, NON [id number] 10:16:00Reason for exam:- >HYPOTENSIONReason for exam:->coughShould this be performed at the bedside?->Yes[facility] : 1950 Sex: MFINAL REPORT INDICATION: HYPOTENSIONcough COMPARISON: None TECHNIQUE: Single frontal view of the chest. FINDINGS: Lungs and pleura: Mild bibasilar atelectasis No effusion.Heart and mediastinum: Normal heart size. Unremarkable mediastinal contours.Osseous structures: No acute abnormality.Other: None. IMPRESSION: No acute intrathoracic abnormality. Signed: Jayne Maloney MDRepliliana Verified Date/Time: 09/11/2020 10:16:33 Reading Location: [facility] Radiology Reading Room RAPID DRUG SCREEN, [id number] 19:07:00 Test Item Value Reference Range Interpretation [...] situations. Chain of custody not maintained. Some jowo-jza-ktejrys medications, as well as adulterants, may cause inaccurate results. Clinical correlation should be applied. A more comprehensivedrug screen or confirmation of a detected drug may be performed upon request.Catering Operations Manager ID - [id number] ID - [id number] ID - [id number] ID - [id number] ID - [id number] ID - [id number] ID - [id number] ID - [id number] URINALYSIS W/ [id number] 16:12:00 Test Item Value Reference Range Interpretation [...] 1663) SOURCE(BEAKER) (test code = 2795) TROPONIN [id number] 15:12:00 Test Item Value Reference Range Interpretation [...] failure, acidosis, acute neurological disease, and persistent tachyarrhythmia.Catering Operations Manager ID - [id number] 15:10:00 Test Item Value Reference Range Interpretation Comments ACETAMINOPHEN LEVEL (BEAKER) (test < ug/mL 10.0-30.0 L code = 344) Catering Operations Manager ID - [id number] ID - [id number] ID - [id number] ID - [id number] 15:10:00 Test Item Value Reference Range Interpretation Comments SALICYLATE LEVEL (BEAKER) (test 0.9 mg/dL 20.0-30.0 L code = 764) Catering Operations Manager ID - [id number] 15:06:00 Test Item Value Reference Range Interpretation Comments ETHANOL (BEAKER) < mg/dL See_Comment [Automated message] The (test code = 400) system The Smartphone Physical generated this result tra nsmitted reference range : <=10. The reference r louis was not used to int erpret this result as normal/abnormal . Catering Operations Manager ID - [id number] 15:05:00 Test Item Value Reference Range Interpretation Comments MAGNESIUM (BEAKER) (test code = 2.3 mg/dL 1.5-3.0 627) Catering Operations Manager ID - [id number] ID - [id number] ID - [id number] ID - [id number] METABOLIC [id number] 15:05:00 Test Item Value Reference Range Interpretation [...] S NOT APPLICABLE FOR DIALYSIS PATIEN TS. Catering Operations Manager ID - [id number] ID - [id number] ID - [id number] ID - [id number] ID - [id number] ID - [id number] ID - [id number] ID - [id number] ID - [id number] ID - [id number] ID - [id number] ID - [id number] ID - [id number] ID - [id number] ID - [id number] ID - [id number] 15:02:00 Test Item Value Reference Range Interpretation Comments PHOSPHORUS (BEAKER) (test code = 4.0 mg/dL 2.5-4.5 604) Catering Operations Manager ID - [id number] W/PLT COUNT & AUTO [id number] 14:46:00 Test Item Value Reference Range Interpretation [...] Not Detected Not Detected (test code = 45859-5) DARCI (test code = DARCI) ID NOW COVID-19 Assay is an isothermal nucleic acid amplification test intended for the qualitative detection of nucleic acid from SARS-CoV-2 viral RNA in nasopharyngeal (SCAFFOLD BUILDER) specimens. It is used under Emergency Use [...] indicated. Lab Interpretation Normal (test code = 02774-8) [facility]2017-04-06 09:31:00 Test Item Value Reference Range Interpretation Comments eGFR (test code = eGFR) 69 [facility]2017-04-06 09:31:00 Test Item Value Reference Range Interpretation Comments Glucose Lvl (test code = Glucose Lvl) 104 70-99 [facility]2017-04-06 09:31:00 Test Item Value Reference Range Interpretation Comments Potassium Lvl (test code = Potassium 4.0 3.5-5.1 Lvl) [facility]2017-04-06 09:31:00 Test Item Value Reference Range Interpretation Comments Sodium Lvl (test code = Sodium Lvl) 140 135-145 [facility]2017-04-06 09:31:00 Test Item Value Reference Range Interpretation Comments Creatinine Lvl (test code = Creatinine 1.10 0.50-1.40 Lvl) [facility]2017-04-06 09:31:00 Test Item Value Reference Range Interpretation Comments BUN (test code = BUN) 21 7-22 [facility]2017-04-06 09:31:00 Test Item Value Reference Range Interpretation Comments AGAP (test code = AGAP) 13.0 10.0-20.0 [facility]2017-04-06 09:31:00 Test Item Value Reference Range Interpretation Comments CO2 (test code = CO2) 27 24-32 [facility]2017-04-06 09:31:00 Test Item Value Reference Range Interpretation Comments Calcium Lvl (test code = Calcium Lvl) 8.2 8.5-10.5 [place] 175377-04-06 09:31:00 Test Item Value Reference Range Interpretation Comments Chloride Lvl (test code = Chloride Lvl) 104 95-109 [facility]2017-04-06 09:31:00 Test Item Value Reference Range Interpretation Comments eGFR (test code = eGFR) 69 [facility]2017-04-06 09:31:00 Test Item Value Reference Range Interpretation Comments Glucose Lvl (test code = Glucose Lvl) 104 70-99 [facility]2017-04-06 09:31:00 Test Item Value Reference Range Interpretation Comments Potassium Lvl (test code = Potassium 4.0 3.5-5.1 Lvl) [facility]2017-04-06 09:31:00 Test Item Value Reference Range Interpretation Comments Sodium Lvl (test code = Sodium Lvl) 140 135-145 [facility]2017-04-06 09:31:00 Test Item Value Reference Range Interpretation Comments Creatinine Lvl (test code = Creatinine 1.10 0.50-1.40 Lvl) [facility]2017-04-06 09:31:00 Test Item Value Reference Range Interpretation Comments BUN (test code = BUN) 21 7-22 [facility]2017-04-06 09:31:00 Test Item Value Reference Range Interpretation Comments AGAP (test code = AGAP) 13.0 10.0-20.0 [facility]2017-04-06 09:31:00 Test Item Value Reference Range Interpretation Comments CO2 (test code = CO2) 27 24-32 [facility]2017-04-06 09:31:00 Test Item Value Reference Range Interpretation Comments Calcium Lvl (test code = Calcium Lvl) 8.2 8.5-10.5 [facility]2017-04-06 09:31:00 Test Item Value Reference Range Interpretation Comments Chloride Lvl (test code = Chloride Lvl) 104 95-109 [facility]2017-04-06 09:31:00 Test Item Value Reference Range Interpretation Comments eGFR (test code = eGFR) 69 [facility]2017-04-06 09:31:00 Test Item Value Reference Range Interpretation Comments Glucose Lvl (test code = Glucose Lvl) 104 70-99 [facility]2017-04-06 09:31:00 Test Item Value Reference Range Interpretation Comments Potassium Lvl (test code = Potassium 4.0 3.5-5.1 Lvl) [facility]2017-04-06 09:31:00 Test Item Value Reference Range Interpretation Comments Sodium Lvl (test code = Sodium Lvl) 140 135-145 [facility]2017-04-06 09:31:00 Test Item Value Reference Range Interpretation Comments Creatinine Lvl (test code = Creatinine 1.10 0.50-1.40 Lvl) [facility]2017-04-06 09:31:00 Test Item Value Reference Range Interpretation Comments BUN (test code = BUN) 10-15 [facility]2017-04-06 09:31:00 Test Item Value Reference Range Interpretation Comments AGAP (test code = AGAP) 13.0 10.0-20.0 [facility]2017-04-06 09:31:00 Test Item Value Reference Range Interpretation Comments CO2 (test code = CO2) [facility]2017-04-06 09:31:00 Test Item Value Reference Range Interpretation Comments Calcium Lvl (test code = Calcium Lvl) 8.2 8.5-10.5 [facility]2017-04-06 09:31:00 Test Item Value Reference Range Interpretation Comments Chloride Lvl (test code = Chloride Lvl) 104 95-109 [facility]2017-04-06 09:31:00 Test Item Value Reference Range Interpretation Comments eGFR (test code = eGFR) 69 [facility]2017-04-06 09:31:00 Test Item Value Reference Range Interpretation Comments Glucose Lvl (test code = Glucose Lvl) 104 70-99 [facility]2017-04-06 09:31:00 Test Item Value Reference Range Interpretation Comments Potassium Lvl (test code = Potassium 4.0 3.5-5.1 Lvl) [facility]2017-04-06 09:31:00 Test Item Value Reference Range Interpretation Comments Sodium Lvl (test code = Sodium Lvl) 140 135-145 [facility]2017-04-06 09:31:00 Test Item Value Reference Range Interpretation Comments Creatinine Lvl (test code = Creatinine 1.10 0.50-1.40 Lvl) [facility]2017-04-06 09:31:00 Test Item Value Reference Range Interpretation Comments BUN (test code = BUN) 10-15 [facility]2017-04-06 09:31:00 Test Item Value Reference Range Interpretation Comments AGAP (test code = AGAP) 13.0 10.0-20.0 [facility]2017-04-06 09:31:00 Test Item Value Reference Range Interpretation Comments CO2 (test code = CO2) - [facility]2017-04-06 09:31:00 Test Item Value Reference Range Interpretation Comments Calcium Lvl (test code = Calcium Lvl) 8.2 8.5-10.5 [facility]2017-04-06 09:31:00 Test Item Value Reference Range Interpretation Comments Chloride Lvl (test code = Chloride Lvl) 104 95-109 [facility]2017-04-06 09:31:00 Test Item Value Reference Range Interpretation Comments eGFR (test code = eGFR) 69 [facility]2017-04-06 09:31:00 Test Item Value Reference Range Interpretation Comments Glucose Lvl (test code = Glucose Lvl) 104 70-99 [facility]2017-04-06 09:31:00 Test Item Value Reference Range Interpretation Comments Potassium Lvl (test code = Potassium 4.0 3.5-5.1 Lvl) [facility]2017-04-06 09:31:00 Test Item Value Reference Range Interpretation Comments Sodium Lvl (test code = Sodium Lvl) 140 135-145 [facility]2017-04-06 09:31:00 Test Item Value Reference Range Interpretation Comments Creatinine Lvl (test code = Creatinine 1.10 0.50-1.40 Lvl) [facility]2017-04-06 09:31:00 Test Item Value Reference Range Interpretation Comments BUN (test code = BUN) 21 7-22 [facility]2017-04-06 09:31:00 Test Item Value Reference Range Interpretation Comments AGAP (test code = AGAP) 13.0 10.0-20.0 [facility]2017-04-06 09:31:00 Test Item Value Reference Range Interpretation Comments CO2 (test code = CO2) - [facility]2017-04-06 09:31:00 Test Item Value Reference Range Interpretation Comments Calcium Lvl (test code = Calcium Lvl) 8.2 8.5-10.5 [facility]2017-04-06 09:31:00 Test Item Value Reference Range Interpretation Comments Chloride Lvl (test code = Chloride Lvl) 104 95-109 [facility]2017-04-06 09:31:00 Test Item Value Reference Range Interpretation Comments eGFR (test code = eGFR) 69 [facility]2017-04-06 09:31:00 Test Item Value Reference Range Interpretation Comments Glucose Lvl (test code = Glucose Lvl) 104 70-99 [facility]2017-04-06 09:31:00 Test Item Value Reference Range Interpretation Comments Potassium Lvl (test code = Potassium 4.0 3.5-5.1 Lvl) [facility]2017-04-06 09:31:00 Test Item Value Reference Range Interpretation Comments Sodium Lvl (test code = Sodium Lvl) 140 135-145 [facility]2017-04-06 09:31:00 Test Item Value Reference Range Interpretation Comments Creatinine Lvl (test code = Creatinine 1.10 0.50-1.40 Lvl) [facility]2017-04-06 09:31:00 Test Item Value Reference Range Interpretation Comments BUN (test code = BUN) 21 7-22 [facility]2017-04-06 09:31:00 Test Item Value Reference Range Interpretation Comments AGAP (test code = AGAP) 13.0 10.0-20.0 [facility]2017-04-06 09:31:00 Test Item Value Reference Range Interpretation Comments CO2 (test code = CO2) 27 24-32 [facility]2017-04-06 09:31:00 Test Item Value Reference Range Interpretation Comments Calcium Lvl (test code = Calcium Lvl) 8.2 8.5-10.5 [facility]2017-04-06 09:31:00 Test Item Value Reference Range Interpretation Comments Chloride Lvl (test code = Chloride Lvl) 104 95-109 [facility]2017-04-06 09:31:00 Test Item Value Reference Range Interpretation Comments eGFR (test code = eGFR) 69 [facility]2017-04-06 09:31:00 Test Item Value Reference Range Interpretation Comments Glucose Lvl (test code = Glucose Lvl) 104 70-99 [facility]2017-04-06 09:31:00 Test Item Value Reference Range Interpretation Comments Potassium Lvl (test code = Potassium 4.0 3.5-5.1 Lvl) [facility]2017-04-06 09:31:00 Test Item Value Reference Range Interpretation Comments Sodium Lvl (test code = Sodium Lvl) 140 135-145 [facility]2017-04-06 09:31:00 Test Item Value Reference Range Interpretation Comments Creatinine Lvl (test code = Creatinine 1.10 0.50-1.40 Lvl) [facility]2017-04-06 09:31:00 Test Item Value Reference Range Interpretation Comments BUN (test code = BUN) 14 10- [facility]2017-04-06 09:31:00 Test Item Value Reference Range Interpretation Comments AGAP (test code = AGAP) 13.0 10.0-20.0 [facility]2017-04-06 09:31:00 Test Item Value Reference Range Interpretation Comments CO2 (test code = CO2) 27 24-32 [facility]2017-04-06 09:31:00 Test Item Value Reference Range Interpretation Comments Calcium Lvl (test code = Calcium Lvl) 8.2 8.5-10.5 [facility]2017-04-06 09:31:00 Test Item Value Reference Range Interpretation Comments Chloride Lvl (test code = Chloride Lvl) 104 95-109 [facility]2017-04-05 10:06:00 Test Item Value Reference Range Interpretation Comments Magnesium Lvl (test code = Magnesium 2.6 1.8-2.4 Lvl) [facility]RDSDCJFOKTNB2209-96-78 10:06:00 Test Item Value Reference Range Interpretation Comments AGAP (test code = AGAP) 15.4 10.0-20.0 [facility] HospitalSvjxchaKIKPQGAYCSTZ6574-36-34 10:06:00 Test Item Value Reference Range Interpretation Comments eGFR (test code = eGFR) 69 [facility] HospitalZobmsluDXJCEIRNGJBS9862-19-11 10:06:00 Test Item Value Reference Range Interpretation Comments Glucose Lvl (test code = Glucose Lvl) 110 70-99 [facility] HospitalHkkmeamVOQLMRJGYKAM8564-57-88 10:06:00 Test Item Value Reference Range Interpretation Comments BUN (test code = BUN) 26 7-22 [facility] HospitalNfitogkOIGHIFAWFANU4692-63-55 10:06:00 Test Item Value Reference Range Interpretation Comments Chloride Lvl (test code = Chloride Lvl) 105 95-109 [facility] HospitalDiqxjchPYLQOYAXEWTT6529-19-89 10:06:00 Test Item Value Reference Range Interpretation Comments Creatinine Lvl (test code = Creatinine 1.10 0.50-1.40 Lvl) [facility] HospitalWegacgnBXTZVRUCFJDM0649-41-35 10:06:00 Test Item Value Reference Range Interpretation Comments Sodium Lvl (test code = Sodium Lvl) 137 135-145 [facility] HospitalNgulonoYFVHOILDDUAJ1181-13-08 10:06:00 Test Item Value Reference Range Interpretation Comments Potassium Lvl (test code = Potassium 4.4 3.5-5.1 Lvl) [facility] HospitalZyaxrneVVQCJLSTZKRK6903-13-05 10:06:00 Test Item Value Reference Range Interpretation Comments CO2 (test code = CO2) 21 24-32 [facility] HospitalJthevmrNULTDAPRLICB3685-70-24 10:06:00 Test Item Value Reference Range Interpretation Comments Calcium Lvl (test code = Calcium Lvl) 8.1 8.5-10.5 [facility]ZdfikooKJNRZCXOEF5524-20-37 10:06:00 Test Item Value Reference Range Interpretation Comments Basophils (test code = Basophils) 0.3 <=1.0 [facility] RenaissanceCpncgfvAZZSMQIWJY5781-30-64 10:06:00 Test Item Value Reference Range Interpretation Comments Segs-Bands # (test code = Segs-Bands #) 9.5 1.5-8.1 [facility] RenaissanceSykyyfoOMIEQZSPYE5028-42-90 10:06:00 Test Item Value Reference Range Interpretation Comments Lymphocytes # (test code = Lymphocytes 1.2 1.0-5.5 #) [facility] RenaissancePxulqztSCIOTMMAGA8063-98-35 10:06:00 Test Item Value Reference Range Interpretation Comments Monocytes # (test code = Monocytes #) 1.4 <=0.8 [facility] RenaissanceHixonowHBAOXXGDEK4093-52-64 10:06:00 Test Item Value Reference Range Interpretation Comments Basophils # (test code = Basophils #) 0.0 <=0.2 [facility] RenaissanceHwpallyEJYRTXLSQZ8466-31-55 10:06:00 Test Item Value Reference Range Interpretation Comments Eosinophils # (test code = Eosinophils 0.2 <=0.5 #) [facility] RenaissanceIzjtbriCDUFBYXJOB0917-34-19 10:06:00 Test Item Value Reference Range Interpretation Comments Polychrom (test code = Moderate *ABN*(06/29/16 Polychrom) 5:06 AM) [facility] RenaissanceBpurpviBKJGNLAPWT1826-19-23 10:06:00 Test Item Value Reference Range Interpretation Comments Plt Morph (test code = Normal (06/29/16 5:06 AM) Plt Morph) [facility] RenaissanceNlxrtfyMXUAHONNEP0023-93-36 10:06:00 Test Item Value Reference Range Interpretation Comments Lymphocytes (test code = Lymphocytes) 9.7 20.0-40.0 [facility] RenaissanceJbugiukLYVCDVKXHL9422-32-88 10:06:00 Test Item Value Reference Range Interpretation Comments Segs (test code = Segs) 77.0 45.0-75.0 [facility] RenaissanceEeckemjOFLZCPDHIS2487-56-64 10:06:00 Test Item Value Reference Range Interpretation Comments Eosinophils (test code = Eosinophils) 1.6 <=4.0 [facility] RenaissanceAgghhqmQVLXJTIBJG5144-45-80 10:06:00 Test Item Value Reference Range Interpretation Comments Monocytes (test code = Monocytes) 11.4 2.0-12.0 [facility] RenaissanceJjfqbetKLTTQVMGIS6157-53-08 10:06:00 Test Item Value Reference Range Interpretation Comments MCH (test code = MCH) 28.6 pg 27.0-31.0 [facility] RenaissanceStrdjatQICREAEOEQ5160-08-94 10:06:00 Test Item Value Reference Range Interpretation Comments Platelet (test code = Platelet) 163 133-450 [facility] RenaissanceAmorgfqOKPXDGJIRQ4134-10-54 10:06:00 Test Item Value Reference Range Interpretation Comments RDW (test code = RDW) 14.2 11.5-14.5 [facility] RenaissanceZigbnokUJKXKPMUHW2104-64-06 10:06:00 Test Item Value Reference Range Interpretation Comments MCHC (test code = MCHC) 33.9 32.0-36.0 [facility] RenaissanceUvnxytlCGOPJMTYWV8069-72-28 10:06:00 Test Item Value Reference Range Interpretation Comments MPV (test code = MPV) 8.3 7.4-10.4 [facility] RenaissanceEyxysxhGHMXKHFJBC0634-22-89 10:06:00 Test Item Value Reference Range Interpretation Comments RBC (test code = RBC) 3.11 4.70-6.10 [facility] RenaissanceKdligzmYMCITFQALI7396-33-50 10:06:00 Test Item Value Reference Range Interpretation Comments WBC (test code = WBC) 12.3 3.7-10.4 [facility] RenaissanceFnbcgfyKUUVWLXVSW3854-58-92 10:06:00 Test Item Value Reference Range Interpretation Comments MCV (test code = MCV) 84.3 80.0-94.0 [facility] RenaissanceYsdzyfjPDIDVIMMBQ7552-24-73 10:06:00 Test Item Value Reference Range Interpretation Comments Hct (test code = Hct) 26.2 42.0-54.0 [facility] RenaissanceLggmwwxPSZEJDOAKP6214-71-52 10:06:00 Test Item Value Reference Range Interpretation Comments Hgb (test code = Hgb) 8.9 14.0-18.0 [facility]2017-04-05 10:06:00 Test Item Value Reference Range Interpretation Comments Magnesium Lvl (test code = Magnesium 2.6 1.8-2.4 Lvl) [facility] HospitalKgxdsxpEXEZKEGKCBYO2715-25-83 10:06:00 Test Item Value Reference Range Interpretation Comments AGAP (test code = AGAP) 15.4 10.0-20.0 [facility] HospitalWyaguxzBZQKMICVHLTO7618-07-96 10:06:00 Test Item Value Reference Range Interpretation Comments eGFR (test code = eGFR) 69 [facility] HospitalXegrmjaYLDUEDMVOCVQ0793-92-68 10:06:00 Test Item Value Reference Range Interpretation Comments Glucose Lvl (test code = Glucose Lvl) 110 70-99 [facility] HospitalWfqpzwbBWUQQTCWUOZJ2367-90-83 10:06:00 Test Item Value Reference Range Interpretation Comments BUN (test code = BUN) 26 7-22 [facility] HospitalVohgklwXOEILFUWGPBA8867-11-89 10:06:00 Test Item Value Reference Range Interpretation Comments Chloride Lvl (test code = Chloride Lvl) 105 95-109 [facility] HospitalItewmviOANYGEQBHFQG5204-65-46 10:06:00 Test Item Value Reference Range Interpretation Comments Creatinine Lvl (test code = Creatinine 1.10 0.50-1.40 Lvl) [facility] HospitalNvrpjuuRXPFPNMEJKWS0856-86-62 10:06:00 Test Item Value Reference Range Interpretation Comments Sodium Lvl (test code = Sodium Lvl) 137 135-145 [facility] HospitalTblparmGKEINXGEJYBM1748-89-37 10:06:00 Test Item Value Reference Range Interpretation Comments Potassium Lvl (test code = Potassium 4.4 3.5-5.1 Lvl) [facility] HospitalHkbqqzwYCHQCHCOXSVK3006-53-84 10:06:00 Test Item Value Reference Range Interpretation Comments CO2 (test code = CO2) 21 24-32 [facility] HospitalBtrmmirXQXZKMIXLOEW6168-36-01 10:06:00 Test Item Value Reference Range Interpretation Comments Calcium Lvl (test code = Calcium Lvl) 8.1 8.5-10.5 [facility] RenaissanceRsawibhSBMQJLCPDL9951-49-03 10:06:00 Test Item Value Reference Range Interpretation Comments Basophils (test code = 0.3 See_Comment [Aut omated message] The Basophils) system which ge nerated this result tra nsmitted reference range : <=1.0. The reference r louis was not used to int erpret this result as normal/abnormal . [facility] RenaissanceGmnxyksMOQOBJXTGR7260-92-10 10:06:00 Test Item Value Reference Range Interpretation Comments Segs-Bands # (test code = Segs-Bands #) 9.5 1.5-8.1 [facility] RenaissanceGnmhbgcTQRFBYGJVV1322-07-49 10:06:00 Test Item Value Reference Range Interpretation Comments Lymphocytes # (test code = Lymphocytes 1.2 1.0-5.5 #) [facility] RenaissanceOleboxrPQUCTEVKZJ9477-52-88 10:06:00 Test Item Value Reference Range Interpretation Comments Monocytes # (test code 1.4 See_Comment [Aut omated message] The = Monocytes #) system which generated this result tra nsmitted reference range : <=0.8. The reference r louis was not used to int erpret this result as normal/abnormal . [facility] RenaissanceCcvqshrOSZRNKGXLV6491-67-84 10:06:00 Test Item Value Reference Range Interpretation Comments Basophils # (test code 0.0 See_Comment [Aut omated message] The = Basophils #) system which generated this result tra nsmitted reference range : <=0.2. The reference r lou[place] was not used to int erpret this result as normal/abnormal . [facility] [facility]TpvmhekXEPTDODKAG3095-65-49 10:06:00 Test Item Value Reference Range Interpretation Comments Eosinophils # (test code 0.2 See_Comment [A utomated message] The = Eosinophils #) system whic h generated this result tra nsmitted reference range : <=0.5. The reference r louis was not used to int erpret this result as normal/abnormal . [facility] RenaissanceTsnlcdzANRSNAQEXH6384-78-72 10:06:00 Test Item Value Reference Range Interpretation Comments Polychrom (test code = Moderate *ABN*(06/29/16 Polychrom) 5:06 AM) [facility] RenaissanceRerncvyFVCMMMNEXD2536-36-08 10:06:00 Test Item Value Reference Range Interpretation Comments Plt Morph (test code = Normal (06/29/16 5:06 AM) Plt Morph) [facility] RenaissanceHlvxbvyPGKCHRXWNM5481-02-90 10:06:00 Test Item Value Reference Range Interpretation Comments Lymphocytes (test code = Lymphocytes) 9.7 20.0-40.0 [facility] RenaissanceMwcxdruHARBBXMFAF6371-31-49 10:06:00 Test Item Value Reference Range Interpretation Comments Segs (test code = Segs) 77.0 45.0-75.0 [facility] RenaissanceCkjxcyqULQPTOTFVB5140-29-68 10:06:00 Test Item Value Reference Range Interpretation Comments Eosinophils (test code = 1.6 See_Comment [A utomated message] The Eosinophils) system which ge nerated this result tra nsmitted reference range : <=4.0. The reference r louis was not used to int erpret this result as normal/abnormal . [facility] RenaissanceZcvucsoTRMCLGYFPP6453-52-52 10:06:00 Test Item Value Reference Range Interpretation Comments Monocytes (test code = Monocytes) 11.4 2.0-12.0 [facility] RenaissanceIrjzyzvZRNJHBTTRA9632-98-51 10:06:00 Test Item Value Reference Range Interpretation Comments MCH (test code = MCH) 28.6 pg 27.0-31.0 [facility] RenaissanceYqojfowMAVWPUPOMD6598-25-10 10:06:00 Test Item Value Reference Range Interpretation Comments Platelet (test code = Platelet) 163 133-450 [facility] RenaissanceVyrkfuzNDXGSGHBRY0808-54-46 10:06:00 Test Item Value Reference Range Interpretation Comments RDW (test code = RDW) 14.2 11.5-14.5 [facility] RenaissanceFovwmszLOYJITJTTO2178-18-49 10:06:00 Test Item Value Reference Range Interpretation Comments MCHC (test code = MCHC) 33.9 32.0-36.0 [facility] RenaissanceHaulxljPTVNQNYTGE6762-24-32 10:06:00 Test Item Value Reference Range Interpretation Comments MPV (test code = MPV) 8.3 7.4-10.4 [facility] RenaissanceSurzcyfNKBCPAWGMX5615-31-90 10:06:00 Test Item Value Reference Range Interpretation Comments RBC (test code = RBC) 3.11 4.70-6.10 [facility] RenaissanceNcgilkvOXVAGHNVPQ5445-84-10 10:06:00 Test Item Value Reference Range Interpretation Comments WBC (test code = WBC) 12.3 3.7-10.4 [facility] RenaissancePmrjquhVJMLPXKUKV5860-75-61 10:06:00 Test Item Value Reference Range Interpretation Comments MCV (test code = MCV) 84.3 80.0-94.0 [facility] RenaissanceTwslnxxYPBSTRRBDG6933-35-51 10:06:00 Test Item Value Reference Range Interpretation Comments Hct (test code = Hct) 26.2 42.0-54.0 [facility] RenaissanceFsnkjsfNJFJYMHSFB9774-04-57 10:06:00 Test Item Value Reference Range Interpretation Comments Hgb (test code = Hgb) 8.9 14.0-18.0 [facility]2017-04-05 10:06:00 Test Item Value Reference Range Interpretation Comments Magnesium Lvl (test code = Magnesium 2.6 1.8-2.4 Lvl) [facility] HospitalBhaelxbLBFTRSWMTJHL4365-14-01 10:06:00 Test Item Value Reference Range Interpretation Comments AGAP (test code = AGAP) 15.4 10.0-20.0 [facility] HospitalEfjopqlNETTVSALARGV0803-42-29 10:06:00 Test Item Value Reference Range Interpretation Comments eGFR (test code = eGFR) 69 [facility] HospitalTthkgbbYJRXNFKEPWVW9781-55-67 10:06:00 Test Item Value Reference Range Interpretation Comments Glucose Lvl (test code = Glucose Lvl) 110 70-99 [facility] HospitalRvtloftMCCMOSMYWXVH1011-60-58 10:06:00 Test Item Value Reference Range Interpretation Comments BUN (test code = BUN) 26 7-22 [facility] HospitalWueiidoOABCHEZEDFWV5730-62-50 10:06:00 Test Item Value Reference Range Interpretation Comments Chloride Lvl (test code = Chloride Lvl) 105 95-109 [facility] HospitalIjqsdmqAACQUHNMVFXT5315-52-68 10:06:00 Test Item Value Reference Range Interpretation Comments Creatinine Lvl (test code = Creatinine 1.10 0.50-1.40 Lvl) [facility] HospitalCmxzemhRZSGIVAPTNQH2912-88-54 10:06:00 Test Item Value Reference Range Interpretation Comments Sodium Lvl (test code = Sodium Lvl) 137 135-145 [facility] HospitalCwuwyajIQSJARAAPGET6899-62-20 10:06:00 Test Item Value Reference Range Interpretation Comments Potassium Lvl (test code = Potassium 4.4 3.5-5.1 Lvl) [facility] HospitalYzvobgdZEKXTWMGVMOE2974-68-75 10:06:00 Test Item Value Reference Range Interpretation Comments CO2 (test code = CO2) 21 24-32 [facility] HospitalSwswbfxWTWZJWYOPDWS1868-10-63 10:06:00 Test Item Value Reference Range Interpretation Comments Calcium Lvl (test code = Calcium Lvl) 8.1 8.5-10.5 [facility] RenaissanceBmngjypIINGNYHCOV9507-60-80 10:06:00 Test Item Value Reference Range Interpretation Comments Basophils (test code = 0.3 See_Comment [Aut omated message] The Basophils) system which ge nerated this result tra nsmitted reference range : <=1.0. The reference r louis was not used to int erpret this result as normal/abnormal . [facility] RenaissanceLyekrtsHFHTUPAOZL8301-27-19 10:06:00 Test Item Value Reference Range Interpretation Comments Segs-Bands # (test code = Segs-Bands #) 9.5 1.5-8.1 [facility] RenaissanceShocbfsDWZFJEHLXP2908-58-64 10:06:00 Test Item Value Reference Range Interpretation Comments Lymphocytes # (test code = Lymphocytes 1.2 1.0-5.5 #) [facility] RenaissanceDuqmtohSNVAGEWNYT3814-83-01 10:06:00 Test Item Value Reference Range Interpretation Comments Monocytes # (test code 1.4 See_Comment [Aut omated message] The = Monocytes #) system which generated this result tra nsmitted reference range : <=0.8. The reference r louis was not used to int erpret this result as normal/abnormal . [facility] RenaissanceDicbrxsIPOMJXBQCJ4058-55-42 10:06:00 Test Item Value Reference Range Interpretation Comments Basophils # (test code 0.0 See_Comment [Aut omated message] The = Basophils #) system which generated this result tra nsmitted reference range : <=0.2. The reference r louis was not used to int erpret this result as normal/abnormal . [facility] RenaissanceOcfcpqkVCZDNAGVOU3133-95-73 10:06:00 Test Item Value Reference Range Interpretation Comments Eosinophils # (test code 0.2 See_Comment [A utomated message] The = Eosinophils #) system whic h generated this result tra nsmitted reference range : <=0.5. The reference r louis was not used to int erpret this result as normal/abnormal . [facility] RenaissancePrnxxdrTBYOZGIHUO1180-85-72 10:06:00 Test Item Value Reference Range Interpretation Comments Polychrom (test code = Moderate *ABN*(06/29/16 Polychrom) 5:06 AM) [facility] RenaissanceDyplxwdWCJSUZCXXR8186-49-47 10:06:00 Test Item Value Reference Range Interpretation Comments Plt Morph (test code = Normal (06/29/16 5:06 AM) Plt Morph) [facility] RenaissanceBkeukodXOUKFXJUAW9559-13-39 10:06:00 Test Item Value Reference Range Interpretation Comments Lymphocytes (test code = Lymphocytes) 9.7 20.0-40.0 [facility] RenaissanceVkfrceuVXEJTMFAZR0200-11-37 10:06:00 Test Item Value Reference Range Interpretation Comments Segs (test code = Segs) 77.0 45.0-75.0 [facility] RenaissanceZcqnuzyUWYCIJHXAF0945-38-31 10:06:00 Test Item Value Reference Range Interpretation Comments Eosinophils (test code = 1.6 See_Comment [A utomated message] The Eosinophils) system which ge nerated this result tra nsmitted reference range : <=4.0. The reference r louis was not used to int erpret this result as normal/abnormal . [facility] RenaissanceRecasicISLYPUIWUS7683-14-29 10:06:00 Test Item Value Reference Range Interpretation Comments Monocytes (test code = Monocytes) 11.4 2.0-12.0 [facility] RenaissanceOkvrnstGVAREMVNTV0410-60-26 10:06:00 Test Item Value Reference Range Interpretation Comments MCH (test code = MCH) 28.6 pg 27.0-31.0 [facility] RenaissanceHexwaihKBOUTQFDFS8006-14-93 10:06:00 Test Item Value Reference Range Interpretation Comments Platelet (test code = Platelet) 163 133-450 [facility] RenaissanceFwqnslfWVMVHWRJPK3674-91-86 10:06:00 Test Item Value Reference Range Interpretation Comments RDW (test code = RDW) 14.2 11.5-14.5 [facility] RenaissanceAnaefveMKBTQNHMWO4646-43-83 10:06:00 Test Item Value Reference Range Interpretation Comments MCHC (test code = MCHC) 33.9 32.0-36.0 [facility] RenaissanceKefxesuBJTRSYCHNU2798-51-73 10:06:00 Test Item Value Reference Range Interpretation Comments MPV (test code = MPV) 8.3 7.4-10.4 [facility] RenaissanceEsbiklcDIMRLUZHXO9519-35-96 10:06:00 Test Item Value Reference Range Interpretation Comments RBC (test code = RBC) 3.11 4.70-6.10 [facility] RenaissanceFcljbqnVCVURSZASE6092-37-15 10:06:00 Test Item Value Reference Range Interpretation Comments WBC (test code = WBC) 12.3 3.7-10.4 [facility] RenaissanceOpjwnafMHFHSHXRXU0477-17-01 10:06:00 Test Item Value Reference Range Interpretation Comments MCV (test code = MCV) 84.3 80.0-94.0 [facility] RenaissanceGlboaeoUCNWJNDPVY4774-79-03 10:06:00 Test Item Value Reference Range Interpretation Comments Hct (test code = Hct) 26.2 42.0-54.0 [facility] RenaissanceCkctgfcVUOFFRCRTP0433-00-34 10:06:00 Test Item Value Reference Range Interpretation Comments Hgb (test code = Hgb) 8.9 14.0-18.0 [facility] SJGYE2840-11-39 10:06:00 Test Item Value Reference Range Interpretation Comments Magnesium Lvl (test code = Magnesium 2.6 1.8-2.4 Lvl) [facility] HospitalQkxdbvfKCFOOQQTXOCX8432-28-53 10:06:00 Test Item Value Reference Range Interpretation Comments AGAP (test code = AGAP) 15.4 10.0-20.0 [facility] HospitalXhgxqxpGZASEQYITGHG8093-42-58 10:06:00 Test Item Value Reference Range Interpretation Comments eGFR (test code = eGFR) 69 [facility] HospitalDsdngwlMJJVWLLENPJH8680-64-10 10:06:00 Test Item Value Reference Range Interpretation Comments Glucose Lvl (test code = Glucose Lvl) 110 70-99 [facility] HospitalYezokjaNSOTCEZGNPUO5642-94-75 10:06:00 Test Item Value Reference Range Interpretation Comments BUN (test code = BUN) 26 7-22 [facility] HospitalVtvytztSLNVSTCOUQJR5495-84-78 10:06:00 Test Item Value Reference Range Interpretation Comments Chloride Lvl (test code = Chloride Lvl) 105 95-109 [facility] HospitalDtawtepCBJPTPIGDZZH1533-46-66 10:06:00 Test Item Value Reference Range Interpretation Comments Creatinine Lvl (test code = Creatinine 1.10 0.50-1.40 Lvl) [facility] HospitalHbqxtcuMXICNQOJYMMY1515-88-79 10:06:00 Test Item Value Reference Range Interpretation Comments Sodium Lvl (test code = Sodium Lvl) 137 135-145 [facility] HospitalFhdduaoEZOBZURDLJGC9574-74-49 10:06:00 Test Item Value Reference Range Interpretation Comments Potassium Lvl (test code = Potassium 4.4 3.5-5.1 Lvl) [facility] HospitalSlxvlxmSHXNLULRMBCX6622-23-17 10:06:00 Test Item Value Reference Range Interpretation Comments CO2 (test code = CO2) 21 24-32 [facility] HospitalMpalgenNKAZGPJRFMZK4783-59-75 10:06:00 Test Item Value Reference Range Interpretation Comments Calcium Lvl (test code = Calcium Lvl) 8.1 8.5-10.5 [facility] RenaissanceMqesiqmAAACDJJQIM5874-86-07 10:06:00 Test Item Value Reference Range Interpretation Comments Basophils (test code = 0.3 See_Comment [Aut omated message] The Basophils) system which ge nerated this result tra nsmitted reference range : <=1.0. The reference r louis was not used to int erpret this result as normal/abnormal . [facility] RenaissanceKcpvibxNPPSBEAPFL4241-44-36 10:06:00 Test Item Value Reference Range Interpretation Comments Segs-Bands # (test code = Segs-Bands #) 9.5 1.5-8.1 [facility] RenaissanceDurzfkjKGCAXLJXCI5663-04-45 10:06:00 Test Item Value Reference Range Interpretation Comments Lymphocytes # (test code = Lymphocytes 1.2 1.0-5.5 #) [facility] RenaissanceVumhhktQEEOYVJNNW2233-85-77 10:06:00 Test Item Value Reference Range Interpretation Comments Monocytes # (test code 1.4 See_Comment [Aut omated message] The = Monocytes #) system which generated this result tra nsmitted reference range : <=0.8. The reference r louis was not used to int erpret this result as normal/abnormal . [facility] RenaissanceGxccrsySXVVXCFXNN7498-79-67 10:06:00 Test Item Value Reference Range Interpretation Comments Basophils # (test code 0.0 See_Comment [Aut omated message] The = Basophils #) system which generated this result tra nsmitted reference range : <=0.2. The reference r louis was not used to int erpret this result as normal/abnormal . [facility] RenaissanceHftyqtwMPKLNYTCLW4348-11-22 10:06:00 Test Item Value Reference Range Interpretation Comments Eosinophils # (test code 0.2 See_Comment [A utomated message] The = Eosinophils #) system whic h generated this result tra nsmitted reference range : <=0.5. The reference r louis was not used to int erpret this result as normal/abnormal . [facility] RenaissanceXkspnsaDYPNHVQOCR1383-01-39 10:06:00 Test Item Value Reference Range Interpretation Comments Polychrom (test code = Moderate *ABN*(06/29/16 Polychrom) 5:06 AM) [facility] RenaissanceMdpunqoESHMWMDQAJ4584-98-16 10:06:00 Test Item Value Reference Range Interpretation Comments Plt Morph (test code = Normal (06/29/16 5:06 AM) Plt Morph) [facility] RenaissanceFzxdixwKJRNYFDKTV6221-22-10 10:06:00 Test Item Value Reference Range Interpretation Comments Lymphocytes (test code = Lymphocytes) 9.7 20.0-40.0 [facility] RenaissanceXlzssspSQYCELHXHV4490-42-76 10:06:00 Test Item Value Reference Range Interpretation Comments Segs (test code = Segs) 77.0 45.0-75.0 [facility] RenaissanceFomgdazBULQKTNYWG6991-46-09 10:06:00 Test Item Value Reference Range Interpretation Comments Eosinophils (test code = 1.6 See_Comment [A utomated message] The Eosinophils) system which ge nerated this result tra nsmitted reference range : <=4.0. The reference r louis was not used to int erpret this result as normal/abnormal . [facility] RenaissanceNqqujutEBWESUDKCR5451-76-34 10:06:00 Test Item Value Reference Range Interpretation Comments Monocytes (test code = Monocytes) 11.4 2.0-12.0 [facility] RenaissanceBiraxjkEQLSXYBAXM9844-13-07 10:06:00 Test Item Value Reference Range Interpretation Comments MCH (test code = MCH) 28.6 pg 27.0-31.0 [facility] RenaissanceUaufsxgVAWIDHTEJA8463-48-07 10:06:00 Test Item Value Reference Range Interpretation Comments Platelet (test code = Platelet) 163 133-450 [facility] RenaissanceBvhcuezEBMWVXKAPP7637-75-35 10:06:00 Test Item Value Reference Range Interpretation Comments RDW (test code = RDW) 14.2 11.5-14.5 [facility]ZumncbaOMGJGUDEGV4331-78-19 10:06:00 Test Item Value Reference Range Interpretation Comments MCHC (test code = MCHC) 33.9 32.0-36.0 [facility] RenaissanceFscuonvFVOLLVBNKD6042-79-08 10:06:00 Test Item Value Reference Range Interpretation Comments MPV (test code = MPV) 8.3 7.4-10.4 [facility]PslyklcDIJICSIRFQ4998-61-88 10:06:00 Test Item Value Reference Range Interpretation Comments RBC (test code = RBC) 3.11 4.70-6.10 [facility] RenaissancePwkpseiRRQGTTUVIE0421-46-48 10:06:00 Test Item Value Reference Range Interpretation Comments WBC (test code = WBC) 12.3 3.7-10.4 [facility] RenaissanceIhelacxRWKXHESNOV1544-40-37 10:06:00 Test Item Value Reference Range Interpretation Comments MCV (test code = MCV) 84.3 80.0-94.0 [facility] RenaissanceBbomxcnXCAJRZBJIH9613-64-80 10:06:00 Test Item Value Reference Range Interpretation Comments Hct (test code = Hct) 26.2 42.0-54.0 [facility] RenaissanceTybeoayXXFVMCSKFC1004-68-46 10:06:00 Test Item Value Reference Range Interpretation Comments Hgb (test code = Hgb) 8.9 14.0-18.0 [facility]2017-04-05 10:06:00 Test Item Value Reference Range Interpretation Comments Magnesium Lvl (test code = Magnesium 2.6 1.8-2.4 Lvl) [facility] HospitalWdhvwtgUDKJMXZQAPFK9033-79-79 10:06:00 Test Item Value Reference Range Interpretation Comments AGAP (test code = AGAP) 15.4 10.0-20.0 [facility] HospitalDwqmyrpWAGRJAVXWQZH9876-27-80 10:06:00 Test Item Value Reference Range Interpretation Comments eGFR (test code = eGFR) 69 [facility] HospitalRflrtdpTXGVENEXGBZQ1138-81-32 10:06:00 Test Item Value Reference Range Interpretation Comments Glucose Lvl (test code = Glucose Lvl) 110 70-99 [facility] HospitalMcxyvhtDDQRUSPAIISI8392-34-82 10:06:00 Test Item Value Reference Range Interpretation Comments BUN (test code = BUN) 26 7-22 [facility] HospitalRlcynjbWGWNGDZWDRBS2803-03-38 10:06:00 Test Item Value Reference Range Interpretation Comments Chloride Lvl (test code = Chloride Lvl) 105 95-109 [facility] HospitalKroufvzJWQTSMWMPJQD0844-02-57 10:06:00 Test Item Value Reference Range Interpretation Comments Creatinine Lvl (test code = Creatinine 1.10 0.50-1.40 Lvl) [facility] HospitalVyxxgzoRPXEEWQPARVK9044-78-41 10:06:00 Test Item Value Reference Range Interpretation Comments Sodium Lvl (test code = Sodium Lvl) 137 135-145 [facility] HospitalCurqrmwGQQMDGSVEUSU0018-09-99 10:06:00 Test Item Value Reference Range Interpretation Comments Potassium Lvl (test code = Potassium 4.4 3.5-5.1 Lvl) [facility] HospitalTkvxxzyUNJKLOODSEEV2608-15-50 10:06:00 Test Item Value Reference Range Interpretation Comments CO2 (test code = CO2) 21 24-32 [facility] HospitalLrjayzcKXXUXFDBANPN3531-32-50 10:06:00 Test Item Value Reference Range Interpretation Comments Calcium Lvl (test code = Calcium Lvl) 8.1 8.5-10.5 [facility] RenaissanceZxeflrvPVCDCAQMYV7113-66-17 10:06:00 Test Item Value Reference Range Interpretation Comments Basophils (test code = Basophils) 0.3 <=1.0 [facility] RenaissanceSnsjfwnYTQFQVTRPV7232-81-87 10:06:00 Test Item Value Reference Range Interpretation Comments Segs-Bands # (test code = Segs-Bands #) 9.5 1.5-8.1 [facility] RenaissanceCzskrhdQIOMTUZTBE1444-73-24 10:06:00 Test Item Value Reference Range Interpretation Comments Lymphocytes # (test code = Lymphocytes 1.2 1.0-5.5 #) [facility] RenaissanceFrnmfthLQQQJVJRGN5893-62-30 10:06:00 Test Item Value Reference Range Interpretation Comments Monocytes # (test code = Monocytes #) 1.4 <=0.8 [facility] RenaissanceFiahguwAXZXWHIESX8676-96-85 10:06:00 Test Item Value Reference Range Interpretation Comments Basophils # (test code = Basophils #) 0.0 <=0.2 [facility] RenaissanceUcmdevfXJZRUZOWVS2782-40-41 10:06:00 Test Item Value Reference Range Interpretation Comments Eosinophils # (test code = Eosinophils 0.2 <=0.5 #) [facility] RenaissanceUrydaghGWFRPKSEUD9328-07-15 10:06:00 Test Item Value Reference Range Interpretation Comments Polychrom (test code = Moderate *ABN*(06/29/16 Polychrom) 5:06 AM) [facility] RenaissanceCgdnbznHNJWNILIXQ4720-18-51 10:06:00 Test Item Value Reference Range Interpretation Comments Plt Morph (test code = Normal (06/29/16 5:06 AM) Plt Morph) [facility] RenaissanceGqrcpziKFVXZJGWHA3955-68-51 10:06:00 Test Item Value Reference Range Interpretation Comments Lymphocytes (test code = Lymphocytes) 9.7 20.0-40.0 [facility] RenaissanceSqyryimQJRUJPSNIY4586-89-69 10:06:00 Test Item Value Reference Range Interpretation Comments Segs (test code = Segs) 77.0 45.0-75.0 [facility] RenaissanceImbhtorNYOMDICXUK6631-49-00 10:06:00 Test Item Value Reference Range Interpretation Comments Eosinophils (test code = Eosinophils) 1.6 <=4.0 [facility] RenaissanceHwaefoxRGTQCIAPWM2799-27-21 10:06:00 Test Item Value Reference Range Interpretation Comments Monocytes (test code = Monocytes) 11.4 2.0-12.0 [facility] RenaissancePcknwpzWLACZDNXXN2364-88-44 10:06:00 Test Item Value Reference Range Interpretation Comments MCH (test code = MCH) 28.6 pg 27.0-31.0 [facility] RenaissanceSzpgtfaPXPITUULZM8432-05-90 10:06:00 Test Item Value Reference Range Interpretation Comments Platelet (test code = Platelet) 163 133-450 [facility] RenaissanceJlscndbCOEKURLZPT0338-30-02 10:06:00 Test Item Value Reference Range Interpretation Comments RDW (test code = RDW) 14.2 11.5-14.5 [facility] RenaissanceCmgbkqrLDDCBIVKKY7095-77-26 10:06:00 Test Item Value Reference Range Interpretation Comments MCHC (test code = MCHC) 33.9 32.0-36.0 [facility] RenaissanceJnrydmgRKUOXULGBW6852-99-23 10:06:00 Test Item Value Reference Range Interpretation Comments MPV (test code = MPV) 8.3 7.4-10.4 [facility] RenaissanceXtndtbePZWKSKSNVY1050-71-88 10:06:00 Test Item Value Reference Range Interpretation Comments RBC (test code = RBC) 3.11 4.70-6.10 [facility] RenaissanceZrdkapvMTCYMKQPQE1751-34-45 10:06:00 Test Item Value Reference Range Interpretation Comments WBC (test code = WBC) 12.3 3.7-10.4 [facility] RenaissanceZhrxdpjTGECWMYDDP1102-34-60 10:06:00 Test Item Value Reference Range Interpretation Comments MCV (test code = MCV) 84.3 80.0-94.0 [facility] RenaissanceVdjxlliICWNGAMPPA8307-49-59 10:06:00 Test Item Value Reference Range Interpretation Comments Hct (test code = Hct) 26.2 42.0-54.0 [facility] RenaissanceQhsotqsOFDIYHTVGQ5445-70-57 10:06:00 Test Item Value Reference Range Interpretation Comments Hgb (test code = Hgb) 8.9 14.0-18.0 [facility]2017-04-05 10:06:00 Test Item Value Reference Range Interpretation Comments Magnesium Lvl (test code = Magnesium 2.6 1.8-2.4 Lvl) [facility] HospitalVaaduxxPPOROUMHRHWK8072-44-90 10:06:00 Test Item Value Reference Range Interpretation Comments AGAP (test code = AGAP) 15.4 10.0-20.0 [facility] HospitalTkxgofvRBKTHJXCDETJ0649-68-58 10:06:00 Test Item Value Reference Range Interpretation Comments eGFR (test code = eGFR) 69 [facility] HospitalTaybdzkECYYRWAJGMOF6876-27-31 10:06:00 Test Item Value Reference Range Interpretation Comments Glucose Lvl (test code = Glucose Lvl) 110 70-99 [facility] HospitalLkessfoUIYWCJBUPNAY2712-15-89 10:06:00 Test Item Value Reference Range Interpretation Comments BUN (test code = BUN) 26 7-22 [facility] HospitalPxftgwvWUGVPVJBDOIU3178-15-45 10:06:00 Test Item Value Reference Range Interpretation Comments Chloride Lvl (test code = Chloride Lvl) 105 95-109 [facility] HospitalEzxrrrxPSMNCCLUFSQU6744-85-21 10:06:00 Test Item Value Reference Range Interpretation Comments Creatinine Lvl (test code = Creatinine 1.10 0.50-1.40 Lvl) [facility] HospitalRwijadsFNXVBZZRESXG7427-39-89 10:06:00 Test Item Value Reference Range Interpretation Comments Sodium Lvl (test code = Sodium Lvl) 137 135-145 [facility] HospitalHcvfwzfDPDYERIDIGJM7135-16-64 10:06:00 Test Item Value Reference Range Interpretation Comments Potassium Lvl (test code = Potassium 4.4 3.5-5.1 Lvl) [facility] HospitalHvjdrjeEMUHDHHGRVCW5949-33-67 10:06:00 Test Item Value Reference Range Interpretation Comments CO2 (test code = CO2) 21 24-32 [facility] HospitalMwflgbxLMAEEMYQCXPY5688-61-62 10:06:00 Test Item Value Reference Range Interpretation Comments Calcium Lvl (test code = Calcium Lvl) 8.1 8.5-10.5 [facility] RenaissanceJrvldnrMWVPOPYZWM4181-22-12 10:06:00 Test Item Value Reference Range Interpretation Comments Basophils (test code = Basophils) 0.3 <=1.0 [facility] RenaissanceClizamqDEISFHUDGW0886-56-99 10:06:00 Test Item Value Reference Range Interpretation Comments Segs-Bands # (test code = Segs-Bands #) 9.5 1.5-8.1 [facility] RenaissanceUrsegyvOZDRGWPEMM8006-68-27 10:06:00 Test Item Value Reference Range Interpretation Comments Lymphocytes # (test code = Lymphocytes 1.2 1.0-5.5 #) [facility] RenaissanceUvonbvtUZUBZTSWCI8492-38-34 10:06:00 Test Item Value Reference Range Interpretation Comments Monocytes # (test code = Monocytes #) 1.4 <=0.8 [facility] RenaissanceHktipruCPPIXSMZQC0855-78-65 10:06:00 Test Item Value Reference Range Interpretation Comments Basophils # (test code = Basophils #) 0.0 <=0.2 [facility] RenaissancePjwhsqhRUUFTTSMJI1016-54-07 10:06:00 Test Item Value Reference Range Interpretation Comments Eosinophils # (test code = Eosinophils 0.2 <=0.5 #) [facility] RenaissanceJuhmnbiJMNDIRDZTW4989-87-57 10:06:00 Test Item Value Reference Range Interpretation Comments Polychrom (test code = Moderate *ABN*(06/29/16 Polychrom) 5:06 AM) [facility] RenaissanceAziwytoFYKUXFRGPR3577-47-85 10:06:00 Test Item Value Reference Range Interpretation Comments Plt Morph (test code = Normal (06/29/16 5:06 AM) Plt Morph) [facility] RenaissanceUvwbpjlNRAXKOWNXF4959-19-01 10:06:00 Test Item Value Reference Range Interpretation Comments Lymphocytes (test code = Lymphocytes) 9.7 20.0-40.0 [facility] RenaissanceLugdhgbGIQXLFWREZ7223-07-10 10:06:00 Test Item Value Reference Range Interpretation Comments Segs (test code = Segs) 77.0 45.0-75.0 [facility] RenaissanceHgiepetDUJFZHMIFP9029-36-23 10:06:00 Test Item Value Reference Range Interpretation Comments Eosinophils (test code = Eosinophils) 1.6 <=4.0 [facility] RenaissanceYmdwlwcGQMTTMCFZO0700-02-67 10:06:00 Test Item Value Reference Range Interpretation Comments Monocytes (test code = Monocytes) 11.4 2.0-12.0 [facility] RenaissanceXpicrlzJOKPWJLHHK3508-80-53 10:06:00 Test Item Value Reference Range Interpretation Comments MCH (test code = MCH) 28.6 pg 27.0-31.0 [facility] RenaissanceEdowhdyIPNDOWQTHF6743-08-50 10:06:00 Test Item Value Reference Range Interpretation Comments Platelet (test code = Platelet) 163 133-450 [facility] RenaissanceJhldrdqNHBJTDIICK2227-89-93 10:06:00 Test Item Value Reference Range Interpretation Comments RDW (test code = RDW) 14.2 11.5-14.5 [facility] RenaissanceWndqwnyFVUEFQBFLT5252-79-94 10:06:00 Test Item Value Reference Range Interpretation Comments MCHC (test code = MCHC) 33.9 32.0-36.0 [facility] RenaissancePixejfoJQLICEDKET1767-23-24 10:06:00 Test Item Value Reference Range Interpretation Comments MPV (test code = MPV) 8.3 7.4-10.4 [facility] RenaissanceWwjfxplRUOPJNPJSN6911-00-35 10:06:00 Test Item Value Reference Range Interpretation Comments RBC (test code = RBC) 3.11 4.70-6.10 [facility] RenaissanceIlxnnzsIKKIIZBFTM7216-93-90 10:06:00 Test Item Value Reference Range Interpretation Comments WBC (test code = WBC) 12.3 3.7-10.4 [facility] RenaissanceOglndmaAZXPKZKZVH8061-69-52 10:06:00 Test Item Value Reference Range Interpretation Comments MCV (test code = MCV) 84.3 80.0-94.0 [facility] RenaissanceKkwhmqhICGRVJTPKE3242-25-94 10:06:00 Test Item Value Reference Range Interpretation Comments Hct (test code = Hct) 26.2 42.0-54.0 [facility] RenaissanceDeccsxeIQCQKVBVSG1840-82-74 10:06:00 Test Item Value Reference Range Interpretation Comments Hgb (test code = Hgb) 8.9 14.0-18.0 [facility]2017-04-05 10:06:00 Test Item Value Reference Range Interpretation Comments Magnesium Lvl (test code = Magnesium 2.6 1.8-2.4 Lvl) [facility]ZrrxqatALYBSCUYCVJQ4469-30-55 10:06:00 Test Item Value Reference Range Interpretation Comments AGAP (test code = AGAP) 15.4 10.0-20.0 [facility] HospitalCtkvvjgSXOZSJCWSFAX3997-98-93 10:06:00 Test Item Value Reference Range Interpretation Comments eGFR (test code = eGFR) 69 [facility] HospitalTrcbeejGKUNHBWYKYWL9711-89-71 10:06:00 Test Item Value Reference Range Interpretation Comments Glucose Lvl (test code = Glucose Lvl) 110 70-99 [facility] HospitalGqdclrxGJYOQLMUQHVG8125-39-79 10:06:00 Test Item Value Reference Range Interpretation Comments BUN (test code = BUN) 26 7-22 [facility] HospitalNqtxdlwIDSVKNALOHVU7835-09-39 10:06:00 Test Item Value Reference Range Interpretation Comments Chloride Lvl (test code = Chloride Lvl) 105 95-109 [facility] HospitalVaupacaPUVYAVRMBIBS9144-87-28 10:06:00 Test Item Value Reference Range Interpretation Comments Creatinine Lvl (test code = Creatinine 1.10 0.50-1.40 Lvl) [facility] HospitalIzvfyijIPCZQYUKMOSU9288-41-75 10:06:00 Test Item Value Reference Range Interpretation Comments Sodium Lvl (test code = Sodium Lvl) 137 135-145 [facility] HospitalKlmcpabKSLDIAXZNLLR0627-60-73 10:06:00 Test Item Value Reference Range Interpretation Comments Potassium Lvl (test code = Potassium 4.4 3.5-5.1 Lvl) [facility] HospitalPaivltgHUCEMIBBNIIP1003-24-48 10:06:00 Test Item Value Reference Range Interpretation Comments CO2 (test code = CO2) 21 24-32 [facility] HospitalJdrggajTCLXGUETBRPM3924-20-58 10:06:00 Test Item Value Reference Range Interpretation Comments Calcium Lvl (test code = Calcium Lvl) 8.1 8.5-10.5 [facility] RenaissancePrplkloIWTEUWTRHV9823-77-56 10:06:00 Test Item Value Reference Range Interpretation Comments Basophils (test code = Basophils) 0.3 <=1.0 [facility] RenaissanceJquxjavRKSUEEXAQM1695-58-51 10:06:00 Test Item Value Reference Range Interpretation Comments Segs-Bands # (test code = Segs-Bands #) 9.5 1.5-8.1 [facility] RenaissanceEjfjblkWJIXIATQUX4036-39-13 10:06:00 Test Item Value Reference Range Interpretation Comments Lymphocytes # (test code = Lymphocytes 1.2 1.0-5.5 #) [facility] RenaissanceKsgleiyOMQTAETEYU1825-52-82 10:06:00 Test Item Value Reference Range Interpretation Comments Monocytes # (test code = Monocytes #) 1.4 <=0.8 [facility] RenaissanceMlnftwuMEGIPDZQRT3124-60-74 10:06:00 Test Item Value Reference Range Interpretation Comments Basophils # (test code = Basophils #) 0.0 <=0.2 [facility] RenaissanceAduvablNXJPGLONOP5618-00-96 10:06:00 Test Item Value Reference Range Interpretation Comments Eosinophils # (test code = Eosinophils 0.2 <=0.5 #) [facility] RenaissanceNdkhrcjKJOXXROVGQ5108-37-01 10:06:00 Test Item Value Reference Range Interpretation Comments Polychrom (test code = Moderate *ABN*(06/29/16 Polychrom) 5:06 AM) [facility] RenaissanceBafeftfNGTUVSQNWD7455-75-94 10:06:00 Test Item Value Reference Range Interpretation Comments Plt Morph (test code = Normal (06/29/16 5:06 AM) Plt Morph) [facility] RenaissanceMxauqxpPCDZNSCVKF9222-14-87 10:06:00 Test Item Value Reference Range Interpretation Comments Lymphocytes (test code = Lymphocytes) 9.7 20.0-40.0 [facility] RenaissanceVeiqbwiEMOEZCTCFA9637-85-17 10:06:00 Test Item Value Reference Range Interpretation Comments Segs (test code = Segs) 77.0 45.0-75.0 [facility] RenaissanceCgecxbbKFIDTDKZCE7616-96-05 10:06:00 Test Item Value Reference Range Interpretation Comments Eosinophils (test code = Eosinophils) 1.6 <=4.0 [facility] RenaissanceYqxpxhhWXEWCFBDQO3297-00-44 10:06:00 Test Item Value Reference Range Interpretation Comments Monocytes (test code = Monocytes) 11.4 2.0-12.0 [facility] RenaissanceZlgcgurMPIEWBYOQV1390-63-52 10:06:00 Test Item Value Reference Range Interpretation Comments MCH (test code = MCH) 28.6 pg 27.0-31.0 [facility] RenaissanceIouipyfEWHLAHGFYI2201-31-58 10:06:00 Test Item Value Reference Range Interpretation Comments Platelet (test code = Platelet) 163 133-450 [facility] RenaissanceXtftazyIPTSCKCKYH4140-76-89 10:06:00 Test Item Value Reference Range Interpretation Comments RDW (test code = RDW) 14.2 11.5-14.5 [facility] RenaissanceMgdkbktRGPZQSWYCJ0992-22-59 10:06:00 Test Item Value Reference Range Interpretation Comments MCHC (test code = MCHC) 33.9 32.0-36.0 [facility] RenaissanceLgckqazRFVVSSWPIU4861-50-90 10:06:00 Test Item Value Reference Range Interpretation Comments MPV (test code = MPV) 8.3 7.4-10.4 [facility] RenaissanceTiurdqbCYFBQZSFYT1659-22-57 10:06:00 Test Item Value Reference Range Interpretation Comments RBC (test code = RBC) 3.11 4.70-6.10 [facility] RenaissanceSzxackaCQZRXAZOOC7357-94-85 10:06:00 Test Item Value Reference Range Interpretation Comments WBC (test code = WBC) 12.3 3.7-10.4 [facility] RenaissanceGurvmdgHZTPAOWWIH0137-04-49 10:06:00 Test Item Value Reference Range Interpretation Comments MCV (test code = MCV) 84.3 80.0-94.0 [facility] RenaissanceBlfcfuyKEPLEBDSVN1267-11-31 10:06:00 Test Item Value Reference Range Interpretation Comments Hct (test code = Hct) 26.2 42.0-54.0 [facility] RenaissanceUelkovyXODUNOAXGD0442-89-26 10:06:00 Test Item Value Reference Range Interpretation Comments Hgb (test code = Hgb) 8.9 14.0-18.0 [facility] RenaissanceZtmahhiFGFEVSIPJL0311-91-08 10:42:00 Test Item Value Reference Range Interpretation Comments Eosinophils (test code = 1.1 See_Comment [A utomated message] The Eosinophils) system which ge nerated this result tra nsmitted reference range : <=4.0. The reference r [place] was not used to int erpret this result as normal/abnormal . [facility] RenaissanceIjbctlgPXRLUMAMIZ3903-00-29 10:42:00 Test Item Value Reference Range Interpretation Comments Basophils (test code = 0.3 See_Comment [Aut omated message] The Basophils) system which ge nerated this result tra nsmitted reference range : <=1.0. The reference r [place] was not used to int erpret this result as normal/abnormal . [facility] RenaissancePgtfechUBVSCRPFFW8626-41-46 10:42:00 Test Item Value Reference Range Interpretation Comments Segs-Bands # (test code = Segs-Bands #) 8.9 1.5-8.1 [facility] RenaissanceInwbdqjPAFEDADJHJ0239-98-69 10:42:00 Test Item Value Reference Range Interpretation Comments Segs (test code = Segs) 74.7 45.0-75.0 [facility]2017-04-04 10:42:00 Test Item Value Reference Range Interpretation Comments eGFR (test code = eGFR) 56 [facility]2017-04-04 10:42:00 Test Item Value Reference Range Interpretation Comments Calcium Lvl (test code = Calcium Lvl) 8.3 8.5-10.5 [facility]2017-04-04 10:42:00 Test Item Value Reference Range Interpretation Comments Potassium Lvl (test code = Potassium 4.5 3.5-5.1 Lvl) [facility]2017-04-04 10:42:00 Test Item Value Reference Range Interpretation Comments CO2 (test code = CO2) 24 24-32 [facility]2017-04-04 10:42:00 Test Item Value Reference Range Interpretation Comments Chloride Lvl (test code = Chloride Lvl) 107 95-109 [facility]2017-04-04 10:42:00 Test Item Value Reference Range Interpretation Comments Glucose Lvl (test code = Glucose Lvl) 118 70-99 [facility]2017-04-04 10:42:00 Test Item Value Reference Range Interpretation Comments BUN (test code = BUN) 29 7-22 [facility]2017-04-04 10:42:00 Test Item Value Reference Range Interpretation Comments Sodium Lvl (test code = Sodium Lvl) 139 135-145 [facility]2017-04-04 10:42:00 Test Item Value Reference Range Interpretation Comments Creatinine Lvl (test code = Creatinine 1.30 0.50-1.40 Lvl) [facility]2017-04-04 10:42:00 Test Item Value Reference Range Interpretation Comments AGAP (test code = AGAP) 12.5 10.0-20.0 [facility]2017-04-04 10:42:00 Test Item Value Reference Range Interpretation Comments Magnesium Lvl (test code = Magnesium 2.7 1.8-2.4 Lvl) [facility] RenaissanceGdstdlsBDGTTREZIE8562-87-79 10:42:00 Test Item Value Reference Range Interpretation Comments Hgb (test code = Hgb) 9.0 14.0-18.0 [facility] RenaissanceIghfhioXMNIRLTECZ6856-16-34 10:42:00 Test Item Value Reference Range Interpretation Comments Hct (test code = Hct) 27.7 42.0-54.0 [facility] RenaissanceQmkrjkwDLTXNBVIUS0691-14-97 10:42:00 Test Item Value Reference Range Interpretation Comments MCV (test code = MCV) 87.2 80.0-94.0 [facility] RenaissanceApqnaklCRLIRIQBBK7886-47-29 10:42:00 Test Item Value Reference Range Interpretation Comments MCH (test code = MCH) 28.5 pg 27.0-31.0 [facility] RenaissanceVbunwgkKSDNIGDAHU1160-25-07 10:42:00 Test Item Value Reference Range Interpretation Comments MCHC (test code = MCHC) 32.6 32.0-36.0 [facility] RenaissanceQhgchdmSUQOSNUASD2093-95-96 10:42:00 Test Item Value Reference Range Interpretation Comments WBC (test code = WBC) 11.9 3.7-10.4 [facility] RenaissanceWridrdnSEFATQQOTR2043-23-52 10:42:00 Test Item Value Reference Range Interpretation Comments RBC (test code = RBC) 3.17 4.70-6.10 [facility] RenaissanceEdsscewKVMJFFMTXD1838-30-05 10:42:00 Test Item Value Reference Range Interpretation Comments RDW (test code = RDW) 14.6 11.5-14.5 [facility] RenaissanceAdwsntlMXBUYAVBJL3115-27-25 10:42:00 Test Item Value Reference Range Interpretation Comments Platelet (test code = Platelet) 136 133-450 [facility] RenaissanceNlgmsnkGDSVGNXQSX2655-08-78 10:42:00 Test Item Value Reference Range Interpretation Comments MPV (test code = MPV) 8.6 7.4-10.4 [facility] RenaissanceKxhljfeTZTLKGUUIO9494-84-75 10:42:00 Test Item Value Reference Range Interpretation Comments Lymphocytes # (test code = Lymphocytes 1.5 1.0-5.5 #) [facility] RenaissanceIirehzwQHAHAECOEA0468-68-20 10:42:00 Test Item Value Reference Range Interpretation Comments Monocytes # (test code = Monocytes #) 1.4 <=0.8 [facility] RenaissanceJlgtfukZGHCRNBDDN9152-43-63 10:42:00 Test Item Value Reference Range Interpretation Comments Eosinophils # (test code = Eosinophils 0.1 <=0.5 #) [facility] RenaissanceSrybgvxLTAIEHTMMN1950-40-25 10:42:00 Test Item Value Reference Range Interpretation Comments Lymphocytes (test code = Lymphocytes) 12.3 20.0-40.0 [facility] RenaissanceOxuqutdHUAHMLMITT4484-67-86 10:42:00 Test Item Value Reference Range Interpretation Comments Monocytes (test code = Monocytes) 11.6 2.0-12.0 [facility] RenaissanceRdairxwZFBVMKEKLW2350-20-44 10:42:00 Test Item Value Reference Range Interpretation Comments Eosinophils (test code = Eosinophils) 1.1 <=4.0 [facility] RenaissanceZeofimtJAPRLLIAEM8785-58-88 10:42:00 Test Item Value Reference Range Interpretation Comments Basophils (test code = Basophils) 0.3 <=1.0 [facility] RenaissanceVrhfchrVXCQJCBYAC8538-43-91 10:42:00 Test Item Value Reference Range Interpretation Comments Segs-Bands # (test code = Segs-Bands #) 8.9 1.5-8.1 [facility] RenaissanceHncdlpbAGOCYXDKIO8959-42-93 10:42:00 Test Item Value Reference Range Interpretation Comments Segs (test code = Segs) 74.7 45.0-75.0 [facility]2017-04-04 10:42:00 Test Item Value Reference Range Interpretation Comments eGFR (test code = eGFR) 56 [facility]2017-04-04 10:42:00 Test Item Value Reference Range Interpretation Comments Calcium Lvl (test code = Calcium Lvl) 8.3 8.5-10.5 [facility]2017-04-04 10:42:00 Test Item Value Reference Range Interpretation Comments Potassium Lvl (test code = Potassium 4.5 3.5-5.1 Lvl) [facility]2017-04-04 10:42:00 Test Item Value Reference Range Interpretation Comments CO2 (test code = CO2) 24 24-32 [facility]2017-04-04 10:42:00 Test Item Value Reference Range Interpretation Comments Chloride Lvl (test code = Chloride Lvl) 107 95-109 [facility]2017-04-04 10:42:00 Test Item Value Reference Range Interpretation Comments Glucose Lvl (test code = Glucose Lvl) 118 70-99 [facility]2017-04-04 10:42:00 Test Item Value Reference Range Interpretation Comments BUN (test code = BUN) 29 7-22 [facility]2017-04-04 10:42:00 Test Item Value Reference Range Interpretation Comments Sodium Lvl (test code = Sodium Lvl) 139 135-145 [facility]2017-04-04 10:42:00 Test Item Value Reference Range Interpretation Comments Creatinine Lvl (test code = Creatinine 1.30 0.50-1.40 Lvl) [facility]2017-04-04 10:42:00 Test Item Value Reference Range Interpretation Comments AGAP (test code = AGAP) 12.5 10.0-20.0 [facility]2017-04-04 10:42:00 Test Item Value Reference Range Interpretation Comments Magnesium Lvl (test code = Magnesium 2.7 1.8-2.4 Lvl) [facility] RenaissanceJexdkesREXZKNFSWG3603-66-73 10:42:00 Test Item Value Reference Range Interpretation Comments Hgb (test code = Hgb) 9.0 14.0-18.0 [facility] RenaissanceIzxtsajHGYPHCYUYL5592-22-18 10:42:00 Test Item Value Reference Range Interpretation Comments Hct (test code = Hct) 27.7 42.0-54.0 [facility] RenaissanceNwhylxkJNCCBJXSPU6314-45-46 10:42:00 Test Item Value Reference Range Interpretation Comments MCV (test code = MCV) 87.2 80.0-94.0 [facility] RenaissanceGdrwwjeMPYFQAOKUL2893-74-34 10:42:00 Test Item Value Reference Range Interpretation Comments MCH (test code = MCH) 28.5 pg 27.0-31.0 [facility] RenaissanceJfcayxlCTAQSUFRDY2324-43-83 10:42:00 Test Item Value Reference Range Interpretation Comments MCHC (test code = MCHC) 32.6 32.0-36.0 [facility] RenaissanceArkxbwfDLSNDCGCFG6780-20-78 10:42:00 Test Item Value Reference Range Interpretation Comments WBC (test code = WBC) 11.9 3.7-10.4 [facility] RenaissanceWbbtkodGPGCJLJFVD9539-66-33 10:42:00 Test Item Value Reference Range Interpretation Comments RBC (test code = RBC) 3.17 4.70-6.10 [facility] RenaissanceKihslcxRIFKDEVRXD7277-64-10 10:42:00 Test Item Value Reference Range Interpretation Comments RDW (test code = RDW) 14.6 11.5-14.5 [facility] RenaissancePqkvblaXWXJFZXQCK9350-19-86 10:42:00 Test Item Value Reference Range Interpretation Comments Platelet (test code = Platelet) 136 133-450 [facility] RenaissanceFwovquhMFWIIHWGUJ7373-55-03 10:42:00 Test Item Value Reference Range Interpretation Comments MPV (test code = MPV) 8.6 7.4-10.4 [facility] RenaissanceLjzlplpSGCZLTUFMH6045-31-93 10:42:00 Test Item Value Reference Range Interpretation Comments Lymphocytes # (test code = Lymphocytes 1.5 1.0-5.5 #) [facility] RenaissanceHlqwhnyEGSLZXMDGB4245-66-80 10:42:00 Test Item Value Reference Range Interpretation Comments Monocytes # (test code = Monocytes #) 1.4 <=0.8 [facility] RenaissanceQojdhuwAEDDMLVDLC0089-60-86 10:42:00 Test Item Value Reference Range Interpretation Comments Eosinophils # (test code = Eosinophils 0.1 <=0.5 #) [facility] RenaissanceGwwcpbaUBZTVVTVSA6206-42-99 10:42:00 Test Item Value Reference Range Interpretation Comments Lymphocytes (test code = Lymphocytes) 12.3 20.0-40.0 [facility] RenaissanceLusgwwkUYMJAVZWYK7848-26-26 10:42:00 Test Item Value Reference Range Interpretation Comments Monocytes (test code = Monocytes) 11.6 2.0-12.0 [facility] RenaissanceSeifcvfKQWZBAKTEZ0337-68-15 10:42:00 Test Item Value Reference Range Interpretation Comments Eosinophils (test code = Eosinophils) 1.1 <=4.0 [facility] RenaissanceBtjlunmGORQJXDCYG2648-52-70 10:42:00 Test Item Value Reference Range Interpretation Comments Basophils (test code = Basophils) 0.3 <=1.0 [facility] RenaissanceEqrxkaeEVAOPVSPXJ2842-67-15 10:42:00 Test Item Value Reference Range Interpretation Comments Segs-Bands # (test code = Segs-Bands #) 8.9 1.5-8.1 [facility] RenaissanceGfjgcjrPMKBPMGYYU0260-71-28 10:42:00 Test Item Value Reference Range Interpretation Comments Segs (test code = Segs) 74.7 45.0-75.0 [facility]2017-04-04 10:42:00 Test Item Value Reference Range Interpretation Comments eGFR (test code = eGFR) 56 [facility]2017-04-04 10:42:00 Test Item Value Reference Range Interpretation Comments Calcium Lvl (test code = Calcium Lvl) 8.3 8.5-10.5 [facility]2017-04-04 10:42:00 Test Item Value Reference Range Interpretation Comments Potassium Lvl (test code = Potassium 4.5 3.5-5.1 Lvl) [facility]2017-04-04 10:42:00 Test Item Value Reference Range Interpretation Comments CO2 (test code = CO2) 24 24-32 [facility]2017-04-04 10:42:00 Test Item Value Reference Range Interpretation Comments Chloride Lvl (test code = Chloride Lvl) 107 95-109 [facility]2017-04-04 10:42:00 Test Item Value Reference Range Interpretation Comments Glucose Lvl (test code = Glucose Lvl) 118 70-99 [facility]2017-04-04 10:42:00 Test Item Value Reference Range Interpretation Comments BUN (test code = BUN) 29 7-22 [facility]2017-04-04 10:42:00 Test Item Value Reference Range Interpretation Comments Sodium Lvl (test code = Sodium Lvl) 139 135-145 [facility]2017-04-04 10:42:00 Test Item Value Reference Range Interpretation Comments Creatinine Lvl (test code = Creatinine 1.30 0.50-1.40 Lvl) [facility]2017-04-04 10:42:00 Test Item Value Reference Range Interpretation Comments AGAP (test code = AGAP) 12.5 10.0-20.0 [facility]2017-04-04 10:42:00 Test Item Value Reference Range Interpretation Comments Magnesium Lvl (test code = Magnesium 2.7 1.8-2.4 Lvl) [facility] RenaissanceZgyhrjgHEPCAUSVMH3277-85-69 10:42:00 Test Item Value Reference Range Interpretation Comments Hgb (test code = Hgb) 9.0 14.0-18.0 [facility] RenaissanceUsvugobOGTOZUMAOC9258-79-01 10:42:00 Test Item Value Reference Range Interpretation Comments Hct (test code = Hct) 27.7 42.0-54.0 [facility] RenaissanceKdtuhxbWDCTONHCDQ5877-85-66 10:42:00 Test Item Value Reference Range Interpretation Comments MCV (test code = MCV) 87.2 80.0-94.0 [facility] RenaissanceLhonrhbEBYTXHPQKV7613-52-50 10:42:00 Test Item Value Reference Range Interpretation Comments MCH (test code = MCH) 28.5 pg 27.0-31.0 [facility] RenaissanceIucsrvzJNOMGGOFME5324-92-04 10:42:00 Test Item Value Reference Range Interpretation Comments MCHC (test code = MCHC) 32.6 32.0-36.0 [facility] RenaissanceXkhcgtuENEILMAZXE6103-60-31 10:42:00 Test Item Value Reference Range Interpretation Comments WBC (test code = WBC) 11.9 3.7-10.4 [facility] RenaissancePishjiaYBDQTVURQO9157-17-22 10:42:00 Test Item Value Reference Range Interpretation Comments RBC (test code = RBC) 3.17 4.70-6.10 [facility] RenaissanceKuhajibJFVSRPHGDJ2546-37-33 10:42:00 Test Item Value Reference Range Interpretation Comments RDW (test code = RDW) 14.6 11.5-14.5 [facility] RenaissancePpohzvsTFAVATWRNL8253-34-04 10:42:00 Test Item Value Reference Range Interpretation Comments Platelet (test code = Platelet) 136 133-450 [facility] RenaissanceHqsbovvZCLPDFWPXG1250-52-29 10:42:00 Test Item Value Reference Range Interpretation Comments MPV (test code = MPV) 8.6 7.4-10.4 [facility] RenaissanceFzvqjavBHCTYFPZKP9407-02-75 10:42:00 Test Item Value Reference Range Interpretation Comments Lymphocytes # (test code = Lymphocytes 1.5 1.0-5.5 #) [facility] RenaissanceMjnhcdpMHPZEWUQPL0974-54-03 10:42:00 Test Item Value Reference Range Interpretation Comments Monocytes # (test code = Monocytes #) 1.4 <=0.8 [facility] RenaissanceBqpkqgvHIBSJSMSKQ2428-12-09 10:42:00 Test Item Value Reference Range Interpretation Comments Eosinophils # (test code = Eosinophils 0.1 <=0.5 #) [facility] RenaissancePvxhahhCPWNXIADKL5090-11-58 10:42:00 Test Item Value Reference Range Interpretation Comments Lymphocytes (test code = Lymphocytes) 12.3 20.0-40.0 [facility] RenaissanceRefckezOSBZFRKECO8732-92-67 10:42:00 Test Item Value Reference Range Interpretation Comments Monocytes (test code = Monocytes) 11.6 2.0-12.0 [facility] RenaissanceSotpynnEJPWXGOXMW4805-63-84 10:42:00 Test Item Value Reference Range Interpretation Comments Eosinophils (test code = Eosinophils) 1.1 <=4.0 [facility] RenaissanceCqgibbrIKVPXTJUAZ6274-22-24 10:42:00 Test Item Value Reference Range Interpretation Comments Basophils (test code = Basophils) 0.3 <=1.0 [facility]HwrojvtSKRKLFCAVC1129-08-74 10:42:00 Test Item Value Reference Range Interpretation Comments Segs-Bands # (test code = Segs-Bands #) 8.9 1.5-8.1 [facility] RenaissanceVlqzivaSRQDMKITFW4160-40-90 10:42:00 Test Item Value Reference Range Interpretation Comments Segs (test code = Segs) 74.7 45.0-75.0 [facility]2017-04-04 10:42:00 Test Item Value Reference Range Interpretation Comments eGFR (test code = eGFR) 56 [facility]2017-04-04 10:42:00 Test Item Value Reference Range Interpretation Comments Calcium Lvl (test code = Calcium Lvl) 8.3 8.5-10.5 [facility]2017-04-04 10:42:00 Test Item Value Reference Range Interpretation Comments Potassium Lvl (test code = Potassium 4.5 3.5-5.1 Lvl) [facility]2017-04-04 10:42:00 Test Item Value Reference Range Interpretation Comments CO2 (test code = CO2) 24 24-32 [facility]2017-04-04 10:42:00 Test Item Value Reference Range Interpretation Comments Chloride Lvl (test code = Chloride Lvl) 107 95-109 [facility]2017-04-04 10:42:00 Test Item Value Reference Range Interpretation Comments Glucose Lvl (test code = Glucose Lvl) 118 70-99 [facility]2017-04-04 10:42:00 Test Item Value Reference Range Interpretation Comments BUN (test code = BUN) 29 7-22 [facility]2017-04-04 10:42:00 Test Item Value Reference Range Interpretation Comments Sodium Lvl (test code = Sodium Lvl) 139 135-145 [facility]2017-04-04 10:42:00 Test Item Value Reference Range Interpretation Comments Creatinine Lvl (test code = Creatinine 1.30 0.50-1.40 Lvl) [facility]2017-04-04 10:42:00 Test Item Value Reference Range Interpretation Comments AGAP (test code = AGAP) 12.5 10.0-20.0 [facility]2017-04-04 10:42:00 Test Item Value Reference Range Interpretation Comments Magnesium Lvl (test code = Magnesium 2.7 1.8-2.4 Lvl) [facility] RenaissanceTgdbuuaPNJYIKOILG9927-86-67 10:42:00 Test Item Value Reference Range Interpretation Comments Hgb (test code = Hgb) 9.0 14.0-18.0 [facility] RenaissanceKwsawalBRHXFQGGPR6035-76-57 10:42:00 Test Item Value Reference Range Interpretation Comments Hct (test code = Hct) 27.7 42.0-54.0 [facility] RenaissanceDmquxniSVYSLQECOY0891-64-94 10:42:00 Test Item Value Reference Range Interpretation Comments MCV (test code = MCV) 87.2 80.0-94.0 [facility] RenaissanceGbsevckRHSUMCMNPI0819-82-51 10:42:00 Test Item Value Reference Range Interpretation Comments MCH (test code = MCH) 28.5 pg 27.0-31.0 [facility] RenaissanceLzvncrvGWEZEYNZII1535-70-86 10:42:00 Test Item Value Reference Range Interpretation Comments MCHC (test code = MCHC) 32.6 32.0-36.0 [facility] RenaissanceErzrkuwARSLDANCPU8606-37-55 10:42:00 Test Item Value Reference Range Interpretation Comments WBC (test code = WBC) 11.9 3.7-10.4 [facility] RenaissanceDgnmonjGZUUMXPLVR6192-58-92 10:42:00 Test Item Value Reference Range Interpretation Comments RBC (test code = RBC) 3.17 4.70-6.10 [facility] RenaissanceVzxqojiFVZCJXZMMK8068-61-91 10:42:00 Test Item Value Reference Range Interpretation Comments RDW (test code = RDW) 14.6 11.5-14.5 [facility] RenaissanceWlqmuujAXHIXWOWXF4942-26-95 10:42:00 Test Item Value Reference Range Interpretation Comments Platelet (test code = Platelet) 136 133-450 [facility] RenaissanceGmkezfeVCMFEKBZMU6618-55-87 10:42:00 Test Item Value Reference Range Interpretation Comments MPV (test code = MPV) 8.6 7.4-10.4 [facility] RenaissanceWtkutytXSRBHTADDG5439-40-64 10:42:00 Test Item Value Reference Range Interpretation Comments Lymphocytes # (test code = Lymphocytes 1.5 1.0-5.5 #) [facility] RenaissanceSyujacnKMLYUBJFPS6741-49-64 10:42:00 Test Item Value Reference Range Interpretation Comments Monocytes # (test code = Monocytes #) 1.4 <=0.8 [facility] RenaissanceRpxihnpVFRIWNDREO6677-59-34 10:42:00 Test Item Value Reference Range Interpretation Comments Eosinophils # (test code = Eosinophils 0.1 <=0.5 #) [facility] RenaissanceRcvibwzRYTHTLEHOQ1562-76-23 10:42:00 Test Item Value Reference Range Interpretation Comments Lymphocytes (test code = Lymphocytes) 12.3 20.0-40.0 [facility] RenaissanceAdcyzjxEIJMHGGOIM2503-42-10 10:42:00 Test Item Value Reference Range Interpretation Comments Monocytes (test code = Monocytes) 11.6 2.0-12.0 [facility] RenaissanceJxyhemoOGERJOSTAY8107-51-75 10:42:00 Test Item Value Reference Range Interpretation Comments Eosinophils (test code = Eosinophils) 1.1 <=4.0 [facility] RenaissanceMzirsfrXTIARBAWOS9238-48-93 10:42:00 Test Item Value Reference Range Interpretation Comments Basophils (test code = Basophils) 0.3 <=1.0 [facility] RenaissanceMswfymhPEEJSESDOU6161-97-77 10:42:00 Test Item Value Reference Range Interpretation Comments Segs-Bands # (test code = Segs-Bands #) 8.9 1.5-8.1 [facility] RenaissanceLjyejsfVUFRBSCMHB0989-80-07 10:42:00 Test Item Value Reference Range Interpretation Comments Segs (test code = Segs) 74.7 45.0-75.0 [facility]2017-04-04 10:42:00 Test Item Value Reference Range Interpretation Comments eGFR (test code = eGFR) 56 [facility]2017-04-04 10:42:00 Test Item Value Reference Range Interpretation Comments Calcium Lvl (test code = Calcium Lvl) 8.3 8.5-10.5 [facility]2017-04-04 10:42:00 Test Item Value Reference Range Interpretation Comments Potassium Lvl (test code = Potassium 4.5 3.5-5.1 Lvl) [facility]2017-04-04 10:42:00 Test Item Value Reference Range Interpretation Comments CO2 (test code = CO2) 24 24-32 [facility]2017-04-04 10:42:00 Test Item Value Reference Range Interpretation Comments Chloride Lvl (test code = Chloride Lvl) 107 95-109 [facility]2017-04-04 10:42:00 Test Item Value Reference Range Interpretation Comments Glucose Lvl (test code = Glucose Lvl) 118 70-99 [facility]2017-04-04 10:42:00 Test Item Value Reference Range Interpretation Comments BUN (test code = BUN) 29 7-22 [facility]2017-04-04 10:42:00 Test Item Value Reference Range Interpretation Comments Sodium Lvl (test code = Sodium Lvl) 139 135-145 [facility]2017-04-04 10:42:00 Test Item Value Reference Range Interpretation Comments Creatinine Lvl (test code = Creatinine 1.30 0.50-1.40 Lvl) [facility]2017-04-04 10:42:00 Test Item Value Reference Range Interpretation Comments AGAP (test code = AGAP) 12.5 10.0-20.0 [facility]2017-04-04 10:42:00 Test Item Value Reference Range Interpretation Comments Magnesium Lvl (test code = Magnesium 2.7 1.8-2.4 Lvl) [facility] RenaissanceSyrzhglKTAJEPTXTD2396-97-74 10:42:00 Test Item Value Reference Range Interpretation Comments Hgb (test code = Hgb) 9.0 14.0-18.0 [facility] RenaissanceIaqfxxhVGTYDVXOCE4472-93-43 10:42:00 Test Item Value Reference Range Interpretation Comments Hct (test code = Hct) 27.7 42.0-54.0 [facility] RenaissanceRctairnWFNZBYDBAT6207-53-40 10:42:00 Test Item Value Reference Range Interpretation Comments MCV (test code = MCV) 87.2 80.0-94.0 [facility] RenaissanceDqytsenDBELDAWHYX1985-43-46 10:42:00 Test Item Value Reference Range Interpretation Comments MCH (test code = MCH) 28.5 pg 27.0-31.0 [place] 959877-04-04 10:42:00 Test Item Value Reference Range Interpretation Comments MCHC (test code = MCHC) 32.6 32.0-36.0 [facility] RenaissanceGvtsnmoLNJWSVQDCQ4805-55-06 10:42:00 Test Item Value Reference Range Interpretation Comments WBC (test code = WBC) 11.9 3.7-10.4 [facility] RenaissanceMpjxkeaCWLVQPYDOF7801-70-88 10:42:00 Test Item Value Reference Range Interpretation Comments RBC (test code = RBC) 3.17 4.70-6.10 [facility] RenaissanceSjndubsRCYBBGICBX0047-62-33 10:42:00 Test Item Value Reference Range Interpretation Comments RDW (test code = RDW) 14.6 11.5-14.5 [facility] RenaissanceIsouyrwBOYLASOKBS1912-36-20 10:42:00 Test Item Value Reference Range Interpretation Comments Platelet (test code = Platelet) 136 133-450 [facility] RenaissanceAlybydfRGONZTMKGN8008-00-68 10:42:00 Test Item Value Reference Range Interpretation Comments MPV (test code = MPV) 8.6 7.4-10.4 [facility] RenaissanceHkuglhxEPJQRHGEGP3860-41-66 10:42:00 Test Item Value Reference Range Interpretation Comments Lymphocytes # (test code = Lymphocytes 1.5 1.0-5.5 #) [facility] RenaissanceDmyctgbANZJMNGFAT3602-02-38 10:42:00 Test Item Value Reference Range Interpretation Comments Monocytes # (test code 1.4 See_Comment [Aut omated message] The = Monocytes #) system which generated this result tra nsmitted reference range : <=0.8. The reference r [place] was not used to int erpret this result as normal/abnormal . [facility] RenaissanceYdonxzvWPQIGLTKZY7528-64-43 10:42:00 Test Item Value Reference Range Interpretation Comments Eosinophils # (test code 0.1 See_Comment [A utomated message] The = Eosinophils #) system whic h generated this result tra nsmitted reference range : <=0.5. The reference r [place] was not used to int erpret this result as normal/abnormal . [facility] RenaissanceSkizccjAGNASBNVTN1992-39-96 10:42:00 Test Item Value Reference Range Interpretation Comments Lymphocytes (test code = Lymphocytes) 12.3 20.0-40.0 [facility] RenaissancePshnzuiPFWHBPEHSR9508-37-79 10:42:00 Test Item Value Reference Range Interpretation Comments Monocytes (test code = Monocytes) 11.6 2.0-12.0 [facility] RenaissanceWmhwgkfXIIHECOQDQ4973-12-64 10:42:00 Test Item Value Reference Range Interpretation Comments Eosinophils (test code = 1.1 See_Comment [A utomated message] The Eosinophils) system which ge nerated this result tra nsmitted reference range : <=4.0. The reference r [place] was not used to int erpret this result as normal/abnormal . [facility] RenaissanceCityooxRCGBVHANLN0786-61-06 10:42:00 Test Item Value Reference Range Interpretation Comments Basophils (test code = 0.3 See_Comment [Aut omated message] The Basophils) system which ge nerated this result tra nsmitted reference range : <=1.0. The reference r [place] was not used to int erpret this result as normal/abnormal . [facility] RenaissanceOoztztwSGZWNDBEVQ8842-25-17 10:42:00 Test Item Value Reference Range Interpretation Comments Segs-Bands # (test code = Segs-Bands #) 8.9 1.5-8.1 [facility] RenaissanceHouonueKXASWEEIRB3195-95-39 10:42:00 Test Item Value Reference Range Interpretation Comments Segs (test code = Segs) 74.7 45.0-75.0 [facility]2017-04-04 10:42:00 Test Item Value Reference Range Interpretation Comments eGFR (test code = eGFR) 56 [facility]2017-04-04 10:42:00 Test Item Value Reference Range Interpretation Comments Calcium Lvl (test code = Calcium Lvl) 8.3 8.5-10.5 [facility]2017-04-04 10:42:00 Test Item Value Reference Range Interpretation Comments Potassium Lvl (test code = Potassium 4.5 3.5-5.1 Lvl) [facility]2017-04-04 10:42:00 Test Item Value Reference Range Interpretation Comments CO2 (test code = CO2) 24 24-32 [facility]2017-04-04 10:42:00 Test Item Value Reference Range Interpretation Comments Chloride Lvl (test code = Chloride Lvl) 107 95-109 [facility]2017-04-04 10:42:00 Test Item Value Reference Range Interpretation Comments Glucose Lvl (test code = Glucose Lvl) 118 70-99 [facility]2017-04-04 10:42:00 Test Item Value Reference Range Interpretation Comments BUN (test code = BUN) 29 7-22 [facility]2017-04-04 10:42:00 Test Item Value Reference Range Interpretation Comments Sodium Lvl (test code = Sodium Lvl) 139 135-145 [facility]2017-04-04 10:42:00 Test Item Value Reference Range Interpretation Comments Creatinine Lvl (test code = Creatinine 1.30 0.50-1.40 Lvl) [facility]2017-04-04 10:42:00 Test Item Value Reference Range Interpretation Comments AGAP (test code = AGAP) 12.5 10.0-20.0 [facility]2017-04-04 10:42:00 Test Item Value Reference Range Interpretation Comments Magnesium Lvl (test code = Magnesium 2.7 1.8-2.4 Lvl) [facility] RenaissanceYbumbrqXIEDTGKLOJ9640-31-22 10:42:00 Test Item Value Reference Range Interpretation Comments Hgb (test code = Hgb) 9.0 14.0-18.0 [facility] RenaissanceWbddtpvJPDDSMPWYL3805-00-07 10:42:00 Test Item Value Reference Range Interpretation Comments Hct (test code = Hct) 27.7 42.0-54.0 [facility] RenaissanceKmtvllaKAYYYAMEMF3240-85-22 10:42:00 Test Item Value Reference Range Interpretation Comments MCV (test code = MCV) 87.2 80.0-94.0 [facility] RenaissanceQpwksscXYBTICJQKY7930-30-90 10:42:00 Test Item Value Reference Range Interpretation Comments MCH (test code = MCH) 28.5 pg 27.0-31.0 [facility] RenaissanceDlfxsncCHXXEDSKRG5429-53-46 10:42:00 Test Item Value Reference Range Interpretation Comments MCHC (test code = MCHC) 32.6 32.0-36.0 [facility] RenaissanceXqnuftjAGEMFTVNOM0115-77-13 10:42:00 Test Item Value Reference Range Interpretation Comments WBC (test code = WBC) 11.9 3.7-10.4 [facility] RenaissanceKxhqirxIMVSRWJRPF7069-72-63 10:42:00 Test Item Value Reference Range Interpretation Comments RBC (test code = RBC) 3.17 4.70-6.10 [facility] RenaissanceQwpzkdlOTAASZNKMR9233-21-14 10:42:00 Test Item Value Reference Range Interpretation Comments RDW (test code = RDW) 14.6 11.5-14.5 [facility] RenaissanceUnglntpCVETQWUDZU3852-02-90 10:42:00 Test Item Value Reference Range Interpretation Comments Platelet (test code = Platelet) 136 133-450 [facility] RenaissanceWsgndjwNSRRAOSDHC4876-16-66 10:42:00 Test Item Value Reference Range Interpretation Comments MPV (test code = MPV) 8.6 7.4-10.4 [facility] RenaissanceZxmcsetVARCTMXILV5568-56-83 10:42:00 Test Item Value Reference Range Interpretation Comments Lymphocytes # (test code = Lymphocytes 1.5 1.0-5.5 #) [facility] RenaissanceLxoinosFUEJIQAJES5553-88-40 10:42:00 Test Item Value Reference Range Interpretation Comments Monocytes # (test code 1.4 See_Comment [Aut omated message] The = Monocytes #) system which generated this result tra nsmitted reference range : <=0.8. The reference r [place] was not used to int erpret this result as normal/abnormal . [facility] RenaissanceEfrezbsFFEGBZNJRS7112-76-26 10:42:00 Test Item Value Reference Range Interpretation Comments Eosinophils # (test code 0.1 See_Comment [A utomated message] The = Eosinophils #) system whic h generated this result tra nsmitted reference range : <=0.5. The reference r [place] was not used to int erpret this result as normal/abnormal . [facility] RenaissancePpteveoCJTZVWGAXH9345-78-46 10:42:00 Test Item Value Reference Range Interpretation Comments Lymphocytes (test code = Lymphocytes) 12.3 20.0-40.0 [facility] RenaissanceDscxgdpOTJKPYKWWH3889-76-92 10:42:00 Test Item Value Reference Range Interpretation Comments Monocytes (test code = Monocytes) 11.6 2.0-12.0 [facility] RenaissanceDainwidORUFZTXHCI9033-47-27 10:42:00 Test Item Value Reference Range Interpretation Comments Eosinophils (test code = 1.1 See_Comment [A utomated message] The Eosinophils) system which ge nerated this result tra nsmitted reference range : <=4.0. The reference r [place] was not used to int erpret this result as normal/abnormal . [facility] RenaissanceIbfkkduKNSSWCJAFE4120-65-54 10:42:00 Test Item Value Reference Range Interpretation Comments Basophils (test code = 0.3 See_Comment [Aut omated message] The Basophils) system which ge nerated this result tra nsmitted reference range : <=1.0. The reference r [place] was not used to int erpret this result as normal/abnormal . [facility] RenaissanceLngarxaGJUNDTMBRH7040-73-27 10:42:00 Test Item Value Reference Range Interpretation Comments Segs-Bands # (test code = Segs-Bands #) 8.9 1.5-8.1 [facility] RenaissanceOfgmxlmISWORCREVJ9812-87-40 10:42:00 Test Item Value Reference Range Interpretation Comments Segs (test code = Segs) 74.7 45.0-75.0 [facility]2017-04-04 10:42:00 Test Item Value Reference Range Interpretation Comments eGFR (test code = eGFR) 56 [facility]2017-04-04 10:42:00 Test Item Value Reference Range Interpretation Comments Calcium Lvl (test code = Calcium Lvl) 8.3 8.5-10.5 [facility]2017-04-04 10:42:00 Test Item Value Reference Range Interpretation Comments Potassium Lvl (test code = Potassium 4.5 3.5-5.1 Lvl) [facility]2017-04-04 10:42:00 Test Item Value Reference Range Interpretation Comments CO2 (test code = CO2) 24 24-32 [facility]2017-04-04 10:42:00 Test Item Value Reference Range Interpretation Comments Chloride Lvl (test code = Chloride Lvl) 107 95-109 [facility]2017-04-04 10:42:00 Test Item Value Reference Range Interpretation Comments Glucose Lvl (test code = Glucose Lvl) 118 70-99 [facility]2017-04-04 10:42:00 Test Item Value Reference Range Interpretation Comments BUN (test code = BUN) 29 7-22 [facility]2017-04-04 10:42:00 Test Item Value Reference Range Interpretation Comments Sodium Lvl (test code = Sodium Lvl) 139 135-145 [facility]2017-04-04 10:42:00 Test Item Value Reference Range Interpretation Comments Creatinine Lvl (test code = Creatinine 1.30 0.50-1.40 Lvl) [facility]2017-04-04 10:42:00 Test Item Value Reference Range Interpretation Comments AGAP (test code = AGAP) 12.5 10.0-20.0 [facility]2017-04-04 10:42:00 Test Item Value Reference Range Interpretation Comments Magnesium Lvl (test code = Magnesium 2.7 1.8-2.4 Lvl) [facility] RenaissanceFegasikLINCWWTGMU1053-36-72 10:42:00 Test Item Value Reference Range Interpretation Comments Hgb (test code = Hgb) 9.0 14.0-18.0 [facility] RenaissanceBfjwvsiWJUTOUNBHW2599-50-39 10:42:00 Test Item Value Reference Range Interpretation Comments Hct (test code = Hct) 27.7 42.0-54.0 [facility] RenaissanceLkmfievXQPWJMLPVP7336-95-59 10:42:00 Test Item Value Reference Range Interpretation Comments MCV (test code = MCV) 87.2 80.0-94.0 [facility] RenaissanceLqfrkwuELNGGUUIOS9605-35-08 10:42:00 Test Item Value Reference Range Interpretation Comments MCH (test code = MCH) 28.5 pg 27.0-31.0 [facility] RenaissanceEpligeaBPGCQQBDIH0600-42-50 10:42:00 Test Item Value Reference Range Interpretation Comments MCHC (test code = MCHC) 32.6 32.0-36.0 [facility] RenaissanceBqhgivfBFVDZIICLX2461-11-72 10:42:00 Test Item Value Reference Range Interpretation Comments WBC (test code = WBC) 11.9 3.7-10.4 [facility] RenaissanceGbonvrjBUPNTZHEBA0376-46-40 10:42:00 Test Item Value Reference Range Interpretation Comments RBC (test code = RBC) 3.17 4.70-6.10 [facility] RenaissanceMzzgekmXCRFNIAXVI6942-29-82 10:42:00 Test Item Value Reference Range Interpretation Comments RDW (test code = RDW) 14.6 11.5-14.5 [facility] RenaissanceCyfilulUPJFBDCWFA1522-70-67 10:42:00 Test Item Value Reference Range Interpretation Comments Platelet (test code = Platelet) 136 133-450 [facility] RenaissanceSipyhciJZPALOMBBR7128-51-69 10:42:00 Test Item Value Reference Range Interpretation Comments MPV (test code = MPV) 8.6 7.4-10.4 [facility] RenaissanceNypemdtGLMJWYQHBN2224-79-34 10:42:00 Test Item Value Reference Range Interpretation Comments Lymphocytes # (test code = Lymphocytes 1.5 1.0-5.5 #) [facility] RenaissanceUvqjaiuCJGPCMWGSU7600-75-14 10:42:00 Test Item Value Reference Range Interpretation Comments Monocytes # (test code 1.4 See_Comment [Aut omated message] The = Monocytes #) system which generated this result tra nsmitted reference range : <=0.8. The reference r [place] was not used to int erpret this result as normal/abnormal . [facility] RenaissanceXimugmlLGABWQDDCS9261-88-13 10:42:00 Test Item Value Reference Range Interpretation Comments Eosinophils # (test code 0.1 See_Comment [A utomated message] The = Eosinophils #) system whic h generated this result tra nsmitted reference range : <=0.5. The reference r [place] was not used to int erpret this result as normal/abnormal . [facility] RenaissanceDnidjtpCQEHGIIZUN6532-69-36 10:42:00 Test Item Value Reference Range Interpretation Comments Lymphocytes (test code = Lymphocytes) 12.3 20.0-40.0 [facility] RenaissanceVkoxfulNCAWNGVJQM5071-67-45 10:42:00 Test Item Value Reference Range Interpretation Comments Monocytes (test code = Monocytes) 11.6 2.0-12.0 [facility]2017-04-03 09:50:00 Test Item Value Reference Range Interpretation Comments Magnesium Lvl (test code = Magnesium 2.4 1.8-2.4 Lvl) [facility] RenaissanceCvunimeFWJTMUVDZT3665-47-37 09:50:00 Test Item Value Reference Range Interpretation Comments WBC (test code = WBC) 18.6 3.7-10.4 [facility] RenaissanceNconkvhMJLVBYPZJN0717-92-19 09:50:00 Test Item Value Reference Range Interpretation Comments RDW (test code = RDW) 14.7 11.5-14.5 [facility] RenaissanceNhmnoslSKUSPRCKES4215-10-89 09:50:00 Test Item Value Reference Range Interpretation Comments MCHC (test code = MCHC) 33.1 32.0-36.0 [facility] RenaissanceLxfwlxvLDKPLVGIEF3371-41-19 09:50:00 Test Item Value Reference Range Interpretation Comments Hct (test code = Hct) 29.5 42.0-54.0 [facility] RenaissanceOedgpufGTVUVFMCIY8775-40-23 09:50:00 Test Item Value Reference Range Interpretation Comments MCH (test code = MCH) 28.1 pg 27.0-31.0 [facility] RenaissanceUxzugafZVLEREWBIX1393-97-37 09:50:00 Test Item Value Reference Range Interpretation Comments MCV (test code = MCV) 84.7 80.0-94.0 [facility] RenaissanceRseemceVRZJFXGJYT9903-14-86 09:50:00 Test Item Value Reference Range Interpretation Comments MPV (test code = MPV) 9.7 7.4-10.4 [facility] RenaissanceEtgipnuKIUYGHAFBT9991-63-93 09:50:00 Test Item Value Reference Range Interpretation Comments Platelet (test code = Platelet) 118 133-450 [facility] RenaissanceXoyltkmAMZPJMDRCU2782-56-72 09:50:00 Test Item Value Reference Range Interpretation Comments Hgb (test code = Hgb) 9.8 14.0-18.0 [facility] RenaissanceYwhkgbmNFWBXDDZFA7943-08-03 09:50:00 Test Item Value Reference Range Interpretation Comments RBC (test code = RBC) 3.48 4.70-6.10 [facility] RenaissanceNhwabhvHJEIJQLEFP9044-50-01 09:50:00 Test Item Value Reference Range Interpretation Comments Lymphocytes # (test code = Lymphocytes 2.0 1.0-5.5 #) [facility] RenaissanceUlzhkzlEADXBEHMMR8081-22-14 09:50:00 Test Item Value Reference Range Interpretation Comments Segs (test code = Segs) 76.1 45.0-75.0 [facility] RenaissanceVjrzzqnPZJYJQOKYA8408-73-19 09:50:00 Test Item Value Reference Range Interpretation Comments Eosinophils (test code = 0.1 See_Comment [A utomated message] The Eosinophils) system which ge nerated this result tra nsmitted reference range : <=4.0. The reference r [place] was not used to int erpret this result as normal/abnormal . [facility] RenaissancePnkdjpdAQBDYPOHYL8638-17-31 09:50:00 Test Item Value Reference Range Interpretation Comments Monocytes (test code = Monocytes) 12.7 2.0-12.0 [facility] RenaissanceEdfueyrICTAOAFHQW4833-72-78 09:50:00 Test Item Value Reference Range Interpretation Comments Segs-Bands # (test code = Segs-Bands #) 14.2 1.5-8.1 [facility] RenaissanceOvdglqjXGMVQQWAOR1172-96-01 09:50:00 Test Item Value Reference Range Interpretation Comments Basophils (test code = 0.5 See_Comment [Aut omated message] The Basophils) system which ge nerated this result tra nsmitted reference range : <=1.0. The reference r [place] was not used to int erpret this result as normal/abnormal . [facility] RenaissanceXrnhwqgNWPORGAWCQ7159-39-00 09:50:00 Test Item Value Reference Range Interpretation Comments Lymphocytes (test code = Lymphocytes) 10.6 20.0-40.0 [facility] RenaissanceGnovekwAKKIORHDSI0837-61-38 09:50:00 Test Item Value Reference Range Interpretation Comments Basophils # (test code 0.1 See_Comment [Aut omated message] The = Basophils #) system which generated this result tra nsmitted reference range : <=0.2. The reference r louis was not used to int erpret this result as normal/abnormal . [facility] RenaissanceMtiitegFCIDTAYTPD3883-93-52 09:50:00 Test Item Value Reference Range Interpretation Comments Monocytes # (test code 2.4 See_Comment [Aut omated message] The = Monocytes #) system which generated this result tra nsmitted reference range : <=0.8. The reference r louis was not used to int erpret this result as normal/abnormal . [facility]2017-04-03 09:50:00 Test Item Value Reference Range Interpretation Comments Magnesium Lvl (test code = Magnesium 2.4 1.8-2.4 Lvl) [facility] RenaissanceDwiunolHVURAYFOTT0747-86-40 09:50:00 Test Item Value Reference Range Interpretation Comments WBC (test code = WBC) 18.6 3.7-10.4 [facility] RenaissanceXupfundBEQDDFAXAI4987-16-31 09:50:00 Test Item Value Reference Range Interpretation Comments RDW (test code = RDW) 14.7 11.5-14.5 [facility] RenaissanceWhwrefjFBYCKJXDZK2924-89-49 09:50:00 Test Item Value Reference Range Interpretation Comments MCHC (test code = MCHC) 33.1 32.0-36.0 [facility] RenaissanceBqewtjzVXCDPCPVPY7092-08-42 09:50:00 Test Item Value Reference Range Interpretation Comments Hct (test code = Hct) 29.5 42.0-54.0 [facility] RenaissanceRkrwhsqEVOXQTNTPX5327-46-32 09:50:00 Test Item Value Reference Range Interpretation Comments MCH (test code = MCH) 28.1 pg 27.0-31.0 [facility] RenaissanceVgtdwiuDXQJAGSADL6986-47-20 09:50:00 Test Item Value Reference Range Interpretation Comments MCV (test code = MCV) 84.7 80.0-94.0 [facility] RenaissanceQdgqausDPFZZYOPYF4180-42-45 09:50:00 Test Item Value Reference Range Interpretation Comments MPV (test code = MPV) 9.7 7.4-10.4 [facility] RenaissancePdabnivXYTUEGNSOA6583-94-43 09:50:00 Test Item Value Reference Range Interpretation Comments Platelet (test code = Platelet) 118 133-450 [facility] RenaissancePkbdvahURUAPKBCHB5419-74-86 09:50:00 Test Item Value Reference Range Interpretation Comments Hgb (test code = Hgb) 9.8 14.0-18.0 [facility] RenaissanceJzbsdtiHQOUVWJGUH2541-89-93 09:50:00 Test Item Value Reference Range Interpretation Comments RBC (test code = RBC) 3.48 4.70-6.10 [facility] RenaissanceCghdfigOUCCGUVDDS6826-13-53 09:50:00 Test Item Value Reference Range Interpretation Comments Lymphocytes # (test code = Lymphocytes 2.0 1.0-5.5 #) [facility] RenaissanceTctzkruQCCTJZFHCH8347-74-11 09:50:00 Test Item Value Reference Range Interpretation Comments Segs (test code = Segs) 76.1 45.0-75.0 [facility] RenaissanceMkveyooVFNUXNYUDI4819-93-26 09:50:00 Test Item Value Reference Range Interpretation Comments Eosinophils (test code = 0.1 See_Comment [A utomated message] The Eosinophils) system which ge nerated this result tra nsmitted reference range : <=4.0. The reference r louis was not used to int erpret this result as normal/abnormal . [facility] RenaissanceSflsgdnNBNZLGUDPT1630-16-35 09:50:00 Test Item Value Reference Range Interpretation Comments Monocytes (test code = Monocytes) 12.7 2.0-12.0 [facility] RenaissanceHtloftkSXODMJEQAO8652-60-59 09:50:00 Test Item Value Reference Range Interpretation Comments Segs-Bands # (test code = Segs-Bands #) 14.2 1.5-8.1 [facility] RenaissanceKizuzaqNOONZBJFZZ2644-03-04 09:50:00 Test Item Value Reference Range Interpretation Comments Basophils (test code = 0.5 See_Comment [Aut omated message] The Basophils) system which ge nerated this result tra nsmitted reference range : <=1.0. The reference r louis was not used to int erpret this result as normal/abnormal . [facility] RenaissanceUfhxmeyWUYEPHVPGA9068-83-19 09:50:00 Test Item Value Reference Range Interpretation Comments Lymphocytes (test code = Lymphocytes) 10.6 20.0-40.0 [facility] RenaissanceSnfwnbyQKRUJVUIQZ3852-29-45 09:50:00 Test Item Value Reference Range Interpretation Comments Basophils # (test code 0.1 See_Comment [Aut omated message] The = Basophils #) system which generated this result tra nsmitted reference range : <=0.2. The reference r louis was not used to int erpret this result as normal/abnormal . [facility] RenaissanceEznagbiPMBPYSDGEQ8102-51-28 09:50:00 Test Item Value Reference Range Interpretation Comments Monocytes # (test code 2.4 See_Comment [Aut omated message] The = Monocytes #) system which generated this result tra nsmitted reference range : <=0.8. The reference r louis was not used to int erpret this result as normal/abnormal . [facility]2017-04-03 09:50:00 Test Item Value Reference Range Interpretation Comments Magnesium Lvl (test code = Magnesium 2.4 1.8-2.4 Lvl) [facility] RenaissanceLyibbmaNFBXSNXOIH2039-17-51 09:50:00 Test Item Value Reference Range Interpretation Comments WBC (test code = WBC) 18.6 3.7-10.4 [facility] RenaissanceTzouhxuWXVJSAAHXE0039-99-80 09:50:00 Test Item Value Reference Range Interpretation Comments RDW (test code = RDW) 14.7 11.5-14.5 [facility] RenaissanceTivbjegHBDRSRCGTM9535-29-08 09:50:00 Test Item Value Reference Range Interpretation Comments MCHC (test code = MCHC) 33.1 32.0-36.0 [facility] RenaissanceUsvgeblHHBNDOXHRI6108-65-04 09:50:00 Test Item Value Reference Range Interpretation Comments Hct (test code = Hct) 29.5 42.0-54.0 [facility] RenaissanceYrrzujxFGFIOGTZEY8471-88-98 09:50:00 Test Item Value Reference Range Interpretation Comments MCH (test code = MCH) 28.1 pg 27.0-31.0 [facility] RenaissanceFtvszcsDQRHTCILXO1379-23-01 09:50:00 Test Item Value Reference Range Interpretation Comments MCV (test code = MCV) 84.7 80.0-94.0 [facility] RenaissanceCjbhwicDMCKLPERTZ1664-90-46 09:50:00 Test Item Value Reference Range Interpretation Comments MPV (test code = MPV) 9.7 7.4-10.4 [facility] RenaissancePotmhqxZPDJPYUJDS5160-51-97 09:50:00 Test Item Value Reference Range Interpretation Comments Platelet (test code = Platelet) 118 133-450 [facility] RenaissanceRrcikfsTDKDSYNTGI2429-52-99 09:50:00 Test Item Value Reference Range Interpretation Comments Hgb (test code = Hgb) 9.8 14.0-18.0 [facility] RenaissanceFhdhufkDCOJOCXAHN1130-69-25 09:50:00 Test Item Value Reference Range Interpretation Comments RBC (test code = RBC) 3.48 4.70-6.10 [facility] RenaissanceWwkwieqWPLAWTEIPN8442-09-24 09:50:00 Test Item Value Reference Range Interpretation Comments Lymphocytes # (test code = Lymphocytes 2.0 1.0-5.5 #) [facility] RenaissanceTdsqcqvPOCISZVHEK1460-95-33 09:50:00 Test Item Value Reference Range Interpretation Comments Segs (test code = Segs) 76.1 45.0-75.0 [facility] RenaissanceBgbacnmRZSVFACFTB7268-48-33 09:50:00 Test Item Value Reference Range Interpretation Comments Eosinophils (test code = 0.1 See_Comment [A utomated message] The Eosinophils) system which ge nerated this result tra nsmitted reference range : <=4.0. The reference r louis was not used to int erpret this result as normal/abnormal . [facility] RenaissanceGxnutumZRLZEWMBOO4323-35-44 09:50:00 Test Item Value Reference Range Interpretation Comments Monocytes (test code = Monocytes) 12.7 2.0-12.0 [facility] RenaissanceXfyfsjoVYWTSUKJXG9772-86-50 09:50:00 Test Item Value Reference Range Interpretation Comments Segs-Bands # (test code = Segs-Bands #) 14.2 1.5-8.1 [facility] RenaissanceFmyutvpPFNTXSHXQT7468-60-27 09:50:00 Test Item Value Reference Range Interpretation Comments Basophils (test code = 0.5 See_Comment [Aut omated message] The Basophils) system which ge nerated this result tra nsmitted reference range : <=1.0. The reference r louis was not used to int erpret this result as normal/abnormal . [facility] RenaissanceQwlocfhIWYQNLHJDZ2563-28-55 09:50:00 Test Item Value Reference Range Interpretation Comments Lymphocytes (test code = Lymphocytes) 10.6 20.0-40.0 [facility] RenaissanceKtmgjpaHFHPSAPNWA7934-45-83 09:50:00 Test Item Value Reference Range Interpretation Comments Basophils # (test code 0.1 See_Comment [Aut omated message] The = Basophils #) system which generated this result tra nsmitted reference range : <=0.2. The reference r louis was not used to int erpret this result as normal/abnormal . [facility] RenaissanceYugqpaeZFFMNZEPMY6470-98-15 09:50:00 Test Item Value Reference Range Interpretation Comments Monocytes # (test code 2.4 See_Comment [Aut omated message] The = Monocytes #) system which generated this result tra nsmitted reference range : <=0.8. The reference r louis was not used to int erpret this result as normal/abnormal . [facility]2017-04-03 09:50:00 Test Item Value Reference Range Interpretation Comments Magnesium Lvl (test code = Magnesium 2.4 1.8-2.4 Lvl) [facility] RenaissanceUdlycjjHWRFKCVIJQ9841-71-59 09:50:00 Test Item Value Reference Range Interpretation Comments WBC (test code = WBC) 18.6 3.7-10.4 [facility] RenaissanceJaeoxbaCUALPSZTBO5611-17-93 09:50:00 Test Item Value Reference Range Interpretation Comments RDW (test code = RDW) 14.7 11.5-14.5 [facility] RenaissanceMyexjxfVAZLOEDJBH1256-19-66 09:50:00 Test Item Value Reference Range Interpretation Comments MCHC (test code = MCHC) 33.1 32.0-36.0 [facility] RenaissanceKkvwkyyQBJTAWVULK1399-51-16 09:50:00 Test Item Value Reference Range Interpretation Comments Hct (test code = Hct) 29.5 42.0-54.0 [facility] RenaissanceVqsepcnWDHLMCVLWA2441-38-44 09:50:00 Test Item Value Reference Range Interpretation Comments MCH (test code = MCH) 28.1 pg 27.0-31.0 [facility] RenaissanceBpewyilFHJKCOLKIJ1655-90-07 09:50:00 Test Item Value Reference Range Interpretation Comments MCV (test code = MCV) 84.7 80.0-94.0 [facility] RenaissanceNgbcscrMXGLYRHPAQ4824-69-19 09:50:00 Test Item Value Reference Range Interpretation Comments MPV (test code = MPV) 9.7 7.4-10.4 [facility] RenaissanceBqhgqjaXDGVXHGMRE9191-26-51 09:50:00 Test Item Value Reference Range Interpretation Comments Platelet (test code = Platelet) 118 133-450 [facility] RenaissanceHctffxqQIRPGILIQZ6958-34-79 09:50:00 Test Item Value Reference Range Interpretation Comments Hgb (test code = Hgb) 9.8 14.0-18.0 [facility] RenaissanceQygcmnrWCMMCNJVWU2854-20-52 09:50:00 Test Item Value Reference Range Interpretation Comments RBC (test code = RBC) 3.48 4.70-6.10 [facility] RenaissanceLwssozeVRRNKWPSRJ8895-17-66 09:50:00 Test Item Value Reference Range Interpretation Comments Lymphocytes # (test code = Lymphocytes 2.0 1.0-5.5 #) [facility] RenaissanceLayqpybVASXYJXAIA7360-05-20 09:50:00 Test Item Value Reference Range Interpretation Comments Segs (test code = Segs) 76.1 45.0-75.0 [facility] RenaissanceQrrznooCJHMZUPJPN9980-42-36 09:50:00 Test Item Value Reference Range Interpretation Comments Eosinophils (test code = Eosinophils) 0.1 <=4.0 [facility] RenaissanceXtuxqorVJBPNHJTXG1919-66-63 09:50:00 Test Item Value Reference Range Interpretation Comments Monocytes (test code = Monocytes) 12.7 2.0-12.0 [facility] RenaissanceAqmqtagFWTEFQOQYM0719-32-69 09:50:00 Test Item Value Reference Range Interpretation Comments Segs-Bands # (test code = Segs-Bands #) 14.2 1.5-8.1 [facility] RenaissanceJrwsmxcQHAYWVAICK4265-03-60 09:50:00 Test Item Value Reference Range Interpretation Comments Basophils (test code = Basophils) 0.5 <=1.0 [facility] RenaissanceAsdoyhlEMTWHFGRTZ1368-57-71 09:50:00 Test Item Value Reference Range Interpretation Comments Lymphocytes (test code = Lymphocytes) 10.6 20.0-40.0 [facility] RenaissanceTdvajktIABVQCQNRI1239-32-40 09:50:00 Test Item Value Reference Range Interpretation Comments Basophils # (test code = Basophils #) 0.1 <=0.2 [facility] RenaissanceLeqgqpcERILHGPDUM6882-25-55 09:50:00 Test Item Value Reference Range Interpretation Comments Monocytes # (test code = Monocytes #) 2.4 <=0.8 [facility]2017-04-03 09:50:00 Test Item Value Reference Range Interpretation Comments Magnesium Lvl (test code = Magnesium 2.4 1.8-2.4 Lvl) [facility] RenaissanceGokdyetEIZMFEYHFF5218-68-43 09:50:00 Test Item Value Reference Range Interpretation Comments WBC (test code = WBC) 18.6 3.7-10.4 [facility] RenaissanceKeobiomDMAXBHDFKA1624-63-54 09:50:00 Test Item Value Reference Range Interpretation Comments RDW (test code = RDW) 14.7 11.5-14.5 [facility] RenaissanceNshuasjXYZJAOVBKT8352-87-23 09:50:00 Test Item Value Reference Range Interpretation Comments MCHC (test code = MCHC) 33.1 32.0-36.0 [facility] RenaissanceSlpeqocVHRWQVZQUA1552-04-41 09:50:00 Test Item Value Reference Range Interpretation Comments Hct (test code = Hct) 29.5 42.0-54.0 [facility] RenaissanceApnbjeqFKADEDNIYE3324-11-98 09:50:00 Test Item Value Reference Range Interpretation Comments MCH (test code = MCH) 28.1 pg 27.0-31.0 [facility] RenaissancePjwwvsgAQYFTVPIOP1420-73-75 09:50:00 Test Item Value Reference Range Interpretation Comments MCV (test code = MCV) 84.7 80.0-94.0 [facility] RenaissanceYzivcdnAOSXJTBZLH8364-73-57 09:50:00 Test Item Value Reference Range Interpretation Comments MPV (test code = MPV) 9.7 7.4-10.4 [facility] RenaissanceLrnpvsaOKEIVZJGAV7414-61-91 09:50:00 Test Item Value Reference Range Interpretation Comments Platelet (test code = Platelet) 118 133-450 [facility] RenaissanceYmbpvjrZCSSZAJIPL9492-08-12 09:50:00 Test Item Value Reference Range Interpretation Comments Hgb (test code = Hgb) 9.8 14.0-18.0 [facility] RenaissanceEuxnwocYLHIAXRVJI0913-31-36 09:50:00 Test Item Value Reference Range Interpretation Comments RBC (test code = RBC) 3.48 4.70-6.10 [facility] RenaissanceRzsfyhhTSIDJSRRFB9172-33-08 09:50:00 Test Item Value Reference Range Interpretation Comments Lymphocytes # (test code = Lymphocytes 2.0 1.0-5.5 #) [facility] RenaissanceAfdwrgcYPEAVJYGQO1695-12-24 09:50:00 Test Item Value Reference Range Interpretation Comments Segs (test code = Segs) 76.1 45.0-75.0 [facility] RenaissanceCdgysjfTEXHNSCUVM5108-16-33 09:50:00 Test Item Value Reference Range Interpretation Comments Eosinophils (test code = Eosinophils) 0.1 <=4.0 [facility] RenaissanceBfrweysFSHYKYKQJI9969-41-70 09:50:00 Test Item Value Reference Range Interpretation Comments Monocytes (test code = Monocytes) 12.7 2.0-12.0 [facility] RenaissanceHnzcwdeVXQXDUTIEB6797-86-93 09:50:00 Test Item Value Reference Range Interpretation Comments Segs-Bands # (test code = Segs-Bands #) 14.2 1.5-8.1 [facility] RenaissanceXotstedUBEQQGHWVH7922-00-55 09:50:00 Test Item Value Reference Range Interpretation Comments Basophils (test code = Basophils) 0.5 <=1.0 [facility] RenaissanceKrkphwzMFHMEPAPGJ1491-04-48 09:50:00 Test Item Value Reference Range Interpretation Comments Lymphocytes (test code = Lymphocytes) 10.6 20.0-40.0 [facility] RenaissanceCompaohVXJMSTVBXH5306-60-06 09:50:00 Test Item Value Reference Range Interpretation Comments Basophils # (test code = Basophils #) 0.1 <=0.2 [facility] RenaissanceVchoycpVAHKKFIKQA2548-91-62 09:50:00 Test Item Value Reference Range Interpretation Comments Monocytes # (test code = Monocytes #) 2.4 <=0.8 [facility]2017-04-03 09:50:00 Test Item Value Reference Range Interpretation Comments Magnesium Lvl (test code = Magnesium 2.4 1.8-2.4 Lvl) [facility] RenaissanceScxuecbVOEOXQTWIF3810-41-25 09:50:00 Test Item Value Reference Range Interpretation Comments WBC (test code = WBC) 18.6 3.7-10.4 [facility] RenaissanceYxdghhnAETAGKNMNN1816-22-99 09:50:00 Test Item Value Reference Range Interpretation Comments RDW (test code = RDW) 14.7 11.5-14.5 [facility] RenaissanceRzbgffiTBPBSNBSHR1860-98-07 09:50:00 Test Item Value Reference Range Interpretation Comments MCHC (test code = MCHC) 33.1 32.0-36.0 [facility] RenaissanceFubgqkjVMKBQIZOFO7648-54-25 09:50:00 Test Item Value Reference Range Interpretation Comments Hct (test code = Hct) 29.5 42.0-54.0 [facility] RenaissanceLwhyazxCQTXNCLUVZ1888-28-68 09:50:00 Test Item Value Reference Range Interpretation Comments MCH (test code = MCH) 28.1 pg 27.0-31.0 [facility] RenaissanceNaffqgaDKSFNNYIPH0620-00-27 09:50:00 Test Item Value Reference Range Interpretation Comments MCV (test code = MCV) 84.7 80.0-94.0 [facility] RenaissanceAxxzdmbLVZFQPABUY5110-65-16 09:50:00 Test Item Value Reference Range Interpretation Comments MPV (test code = MPV) 9.7 7.4-10.4 [facility] RenaissancePxxrdcpBBGXGSFPNS5036-87-26 09:50:00 Test Item Value Reference Range Interpretation Comments Platelet (test code = Platelet) 118 133-450 [facility] RenaissanceKljzzkaCDQRPNSGAO8365-76-62 09:50:00 Test Item Value Reference Range Interpretation Comments Hgb (test code = Hgb) 9.8 14.0-18.0 [facility] RenaissanceLhtaeczUTSIBPZLWK6806-10-81 09:50:00 Test Item Value Reference Range Interpretation Comments RBC (test code = RBC) 3.48 4.70-6.10 [facility] RenaissanceOmwosarVGILJUDXUS2709-18-66 09:50:00 Test Item Value Reference Range Interpretation Comments Lymphocytes # (test code = Lymphocytes 2.0 1.0-5.5 #) [facility] RenaissanceWoytvdjVISAWZSOUC4560-26-70 09:50:00 Test Item Value Reference Range Interpretation Comments Segs (test code = Segs) 76.1 45.0-75.0 [facility] RenaissanceStjiqfeXKWSPCXGCJ7040-50-57 09:50:00 Test Item Value Reference Range Interpretation Comments Eosinophils (test code = Eosinophils) 0.1 <=4.0 [facility] RenaissanceWeeiogqFESNZMLJLL5561-39-13 09:50:00 Test Item Value Reference Range Interpretation Comments Monocytes (test code = Monocytes) 12.7 2.0-12.0 [facility] RenaissanceSgjoxtnMUQKFGGYBD9391-44-97 09:50:00 Test Item Value Reference Range Interpretation Comments Segs-Bands # (test code = Segs-Bands #) 14.2 1.5-8.1 [facility] RenaissanceProbydcCYQKNJUNRG9395-46-05 09:50:00 Test Item Value Reference Range Interpretation Comments Basophils (test code = Basophils) 0.5 <=1.0 [facility] RenaissanceTbtiojjPEQPDUCFNM5613-51-57 09:50:00 Test Item Value Reference Range Interpretation Comments Lymphocytes (test code = Lymphocytes) 10.6 20.0-40.0 [facility] RenaissanceKoffagyEJZWIBCFKZ3290-69-19 09:50:00 Test Item Value Reference Range Interpretation Comments Basophils # (test code = Basophils #) 0.1 <=0.2 [facility] RenaissanceHbbazotGGPSSQNMJS2526-62-40 09:50:00 Test Item Value Reference Range Interpretation Comments Monocytes # (test code = Monocytes #) 2.4 <=0.8 [facility]2017-04-03 09:50:00 Test Item Value Reference Range Interpretation Comments Magnesium Lvl (test code = Magnesium 2.4 1.8-2.4 Lvl) [facility] RenaissanceWjnobngCXPBUSBORD9520-04-25 09:50:00 Test Item Value Reference Range Interpretation Comments WBC (test code = WBC) 18.6 3.7-10.4 [facility] RenaissanceXexkthyEKWOQNRMIJ0506-79-16 09:50:00 Test Item Value Reference Range Interpretation Comments RDW (test code = RDW) 14.7 11.5-14.5 [facility] RenaissanceKrggheqWYWCBSKSTO0982-53-64 09:50:00 Test Item Value Reference Range Interpretation Comments MCHC (test code = MCHC) 33.1 32.0-36.0 [facility] RenaissanceQyqbqlvRQSOYFVYHZ6721-72-89 09:50:00 Test Item Value Reference Range Interpretation Comments Hct (test code = Hct) 29.5 42.0-54.0 [facility] RenaissanceZuzrvrgDTHJLDOJAP4251-45-97 09:50:00 Test Item Value Reference Range Interpretation Comments MCH (test code = MCH) 28.1 pg 27.0-31.0 [facility] RenaissanceInrbtvnINHGCPVZPU6722-18-34 09:50:00 Test Item Value Reference Range Interpretation Comments MCV (test code = MCV) 84.7 80.0-94.0 [facility] RenaissanceGtqdicoONNNRLEEJV4920-91-36 09:50:00 Test Item Value Reference Range Interpretation Comments MPV (test code = MPV) 9.7 7.4-10.4 [facility] RenaissanceAjbsmtbFEYUBEMEIK3813-68-52 09:50:00 Test Item Value Reference Range Interpretation Comments Platelet (test code = Platelet) 118 133-450 [facility] RenaissanceMdejtfzDFWMEGOFPL1069-73-77 09:50:00 Test Item Value Reference Range Interpretation Comments Hgb (test code = Hgb) 9.8 14.0-18.0 [facility] RenaissanceDlryfqfQZSUQAOYHF7685-07-18 09:50:00 Test Item Value Reference Range Interpretation Comments RBC (test code = RBC) 3.48 4.70-6.10 [facility] RenaissancePylopemVXBKYCJMQE2147-16-38 09:50:00 Test Item Value Reference Range Interpretation Comments Lymphocytes # (test code = Lymphocytes 2.0 1.0-5.5 #) [facility] RenaissanceKmvuhynPJCOZBNOKX9451-00-29 09:50:00 Test Item Value Reference Range Interpretation Comments Segs (test code = Segs) 76.1 45.0-75.0 [facility] RenaissancePdqhxpuAITOWVQUPE5939-18-59 09:50:00 Test Item Value Reference Range Interpretation Comments Eosinophils (test code = Eosinophils) 0.1 <=4.0 [facility] RenaissanceDkkavztPVPNMLCHXS3492-31-77 09:50:00 Test Item Value Reference Range Interpretation Comments Monocytes (test code = Monocytes) 12.7 2.0-12.0 [facility] RenaissanceAuuxnlgNJSUQGYFAH3713-41-96 09:50:00 Test Item Value Reference Range Interpretation Comments Segs-Bands # (test code = Segs-Bands #) 14.2 1.5-8.1 [facility] RenaissancePjenifxUTQRVYDAKY3856-65-94 09:50:00 Test Item Value Reference Range Interpretation Comments Basophils (test code = Basophils) 0.5 <=1.0 [facility] RenaissanceLrynlkePAJMFVAAZO8159-62-60 09:50:00 Test Item Value Reference Range Interpretation Comments Lymphocytes (test code = Lymphocytes) 10.6 20.0-40.0 [facility] RenaissanceWhcqhlyONTDQXWNMI9859-81-92 09:50:00 Test Item Value Reference Range Interpretation Comments Basophils # (test code = Basophils #) 0.1 <=0.2 [facility] RenaissanceYtilobpWVAKOXZEAI1345-16-31 09:50:00 Test Item Value Reference Range Interpretation Comments Monocytes # (test code = Monocytes #) 2.4 <=0.8 [facility]2017-04-02 08:42:00 Test Item Value Reference Range Interpretation Comments Phosphorus (test code = Phosphorus) 2.0 2.5-4.5 [facility]OntbiuyJFHJBZOQWB7903-89-[facility] 08:42:00 Test Item Value Reference Range Interpretation Comments Eosinophils # (test code 0.0 See_Comment [A utomated message] The = Eosinophils #) system [employer] generated this result tra nsmitted reference range : <=0.5. The reference r [place] was not used to int erpret this result as normal/abnormal . [facility] CenterHcrjcidMRRXOBRWSP9385-74-23 08:42:00 Test Item Value Reference Range Interpretation Comments Basophils # (test code 0.0 See_Comment [Aut omated message] The = Basophils #) system which generated this result tra nsmitted reference range : <=0.2. The reference r [place] was not used to int erpret this result as normal/abnormal . [facility]ATHYROID WTXJNJL6412-57-22 08:42:00 Test Item Value Reference Range Interpretation Comments Ca Ion WB (test code = Ca Ion WB) 1.11 1.05-1.25 [facility]ATHYROID LMCHLVA9465-18-45 08:42:00 Test Item Value Reference Range Interpretation Comments Ca Norm WB (test code = Ca Norm WB) 1.11 1.05-1.25 [facility] LGWLNUYKJ6138-90-94 08:42:00 Test Item Value Reference Range Interpretation Comments Hgb A1C (test code = Hgb A1C) 6.4 [facility] JGKSY6174-72-29 08:42:00 Test Item Value Reference Range Interpretation Comments Phosphorus (test code = Phosphorus) 2.0 2.5-4.5 [facility] HospitalBduwexrOEZEVVBNKE8876-19-10 08:42:00 Test Item Value Reference Range Interpretation Comments Eosinophils # (test code 0.0 See_Comment [A utomated message] The = Eosinophils #) system [employer] generated this result tra nsmitted reference range : <=0.5. The reference r [place] was not used to int erpret this result as normal/abnormal . [facility] RenaissanceMueuetvUKOHHENWPO1767-53-98 08:42:00 Test Item Value Reference Range Interpretation Comments Basophils # (test code 0.0 See_Comment [Aut omated message] The = Basophils #) system which generated this result tra nsmitted reference range : <=0.2. The reference r lou[place] was not used to int erpret this result as normal/abnormal . [facility] [id number] 08:42:00 Test Item Value Reference Range Interpretation Comments Ca Ion WB (test code = Ca Ion WB) 1.11 1.05-1.25 [facility] [id number] 08:42:00 Test Item Value Reference Range Interpretation Comments Ca Norm WB (test code = Ca Norm WB) 1.11 1.05-1.25 [facility] [id number] 08:42:00 Test Item Value Reference Range Interpretation Comments Hgb A1C (test code = Hgb A1C) 6.4 [facility] [id number] 08:42:00 Test Item Value Reference Range Interpretation Comments Phosphorus (test code = Phosphorus) 2.0 2.5-4.5 [facility] RenaissanceCxwxkklKAUCBRRGZM6215-06-69 08:42:00 Test Item Value Reference Range Interpretation Comments Eosinophils # (test code 0.0 See_Comment [A utomated message] The = Eosinophils #) system ic h generated this result tra nsmitted reference range : <=0.5. The reference r louis was not used to int erpret this result as normal/abnormal . [facility] RenaissanceTfvbtopNULUELGYIL9415-90-63 08:42:00 Test Item Value Reference Range Interpretation Comments Basophils # (test code 0.0 See_Comment [Aut omated message] The = Basophils #) system which generated this result tra nsmitted reference range : <=0.2. The reference r lou[place] was not used to int erpret this result as normal/abnormal . [facility]ATH[facility]PR[facility] [id number] 08:42:00 Test Item Value Reference Range Interpretation Comments Ca Ion WB (test code = Ca Ion WB) 1.11 1.05-1.25 [facility]2017-04-02 08:42:00 Test Item Value Reference Range Interpretation Comments Ca Norm WB (test code = Ca Norm WB) 1.11 1.05-1.25 [facility] [id number] 08:42:00 Test Item Value Reference Range Interpretation Comments Hgb A1C (test code = Hgb A1C) 6.4 [facility] [id number] 08:42:00 Test Item Value Reference Range Interpretation Comments Phosphorus (test code = Phosphorus) 2.0 2.5-4.5 [facility]DyytswgQEQHIQRZFD6889-91-70 08:42:00 Test Item Value Reference Range Interpretation Comments Eosinophils # (test code = Eosinophils 0.0 <=0.5 #) [facility] RenaissanceWlcmdnqEUFMWPRINY4329-40-40 08:42:00 Test Item Value Reference Range Interpretation Comments Basophils # (test code = Basophils #) 0.0 <=0.2 [facility] [id number] 08:42:00 Test Item Value Reference Range Interpretation Comments Ca Ion WB (test code = Ca Ion WB) 1.11 1.05-1.25 [facility]2017-04-02 08:42:00 Test Item Value Reference Range Interpretation Comments Ca Norm WB (test code = Ca Norm WB) 1.11 1.05-1.25 [facility]2017-04-02 08:42:00 Test Item Value Reference Range Interpretation Comments Hgb A1C (test code = Hgb A1C) 6.4 [facility] [id number] 08:42:00 Test Item Value Reference Range Interpretation Comments Phosphorus (test code = Phosphorus) 2.0 2.5-4.5 [facility] RenaissanceCnotzzwAQJWMHKKKL0960-18-91 08:42:00 Test Item Value Reference Range Interpretation Comments Eosinophils # (test code = Eosinophils 0.0 <=0.5 #) [facility] RenaissanceFpkohaxYKZVZCNETL5181-47-76 08:42:00 Test Item Value Reference Range Interpretation Comments Basophils # (test code = Basophils #) 0.0 <=0.2 [facility]2017-04-02 08:42:00 Test Item Value Reference Range Interpretation Comments Ca Ion WB (test code = Ca Ion WB) 1.11 1.05-1.25 [facility]2017-04-02 08:42:00 Test Item Value Reference Range Interpretation Comments Ca Norm WB (test code = Ca Norm WB) 1.11 1.05-1.25 [facility] [id number] 08:42:00 Test Item Value Reference Range Interpretation Comments Hgb A1C (test code = Hgb A1C) 6.4 [facility] [id number] 08:42:00 Test Item Value Reference Range Interpretation Comments Phosphorus (test code = Phosphorus) 2.0 2.5-4.5 [facility] CenterLcyiuoiYFEMCOJKMZ9144-16-29 08:42:00 Test Item Value Reference Range Interpretation Comments Eosinophils # (test code = Eosinophils 0.0 <=0.5 #) [facility] RenaissanceLqsrcjwWSWFCNCZDE6200-76-38 08:42:00 Test Item Value Reference Range Interpretation Comments Basophils # (test code = Basophils #) 0.0 <=0.2 [facility]2017-04-02 08:42:00 Test Item Value Reference Range Interpretation Comments Ca Ion WB (test code = Ca Ion WB) 1.11 1.05-1.25 [facility]2017-04-02 08:42:00 Test Item Value Reference Range Interpretation Comments Ca Norm WB (test code = Ca Norm WB) 1.11 1.05-1.25 [facility]2017-04-02 08:42:00 Test Item Value Reference Range Interpretation Comments Hgb A1C (test code = Hgb A1C) 6.4 [facility] [id number] 08:42:00 Test Item Value Reference Range Interpretation Comments Phosphorus (test code = Phosphorus) 2.0 2.5-4.5 [facility] RenaissanceOgffbqkMTVWPQBQAM9527-58-82 08:42:00 Test Item Value Reference Range Interpretation Comments Eosinophils # (test code = Eosinophils 0.0 <=0.5 #) [facility] RenaissanceKvmdfrdIHXJONATDO0400-03-19 08:42:00 Test Item Value Reference Range Interpretation Comments Basophils # (test code = Basophils #) 0.0 <=0.2 [facility]2017-04-02 08:42:00 Test Item Value Reference Range Interpretation Comments Ca Ion WB (test code = Ca Ion WB) 1.11 1.05-1.25 [facility]2017-04-02 08:42:00 Test Item Value Reference Range Interpretation Comments Ca Norm WB (test code = Ca Norm WB) 1.11 1.05-1.25 [facility]2017-04-02 08:42:00 Test Item Value Reference Range Interpretation Comments Hgb A1C (test code = Hgb A1C) 6.4 [facility] [id number] 07:28:00 Test Item Value Reference Range Interpretation Comments Phosphorus (test code = Phosphorus) 1.6 2.5-4.5 [facility] Rena[id number] 07:28:00 Test Item Value Reference Range Interpretation Comments RBC Morph (test code = Normal (06/25/16 2:28 AM) RBC Morph) [facility] RenaissanceJflhrjwYVBJKQYCGM5570-55-53 07:28:00 Test Item Value Reference Range Interpretation Comments Plt Morph (test code = Normal (06/25/16 2:28 AM) Plt Morph) [facility]2017-04-01 07:28:00 Test Item Value Reference Range Interpretation Comments Ca Norm WB (test code = Ca Norm WB) 1.06 1.05-1.25 [facility]2017-04-01 07:28:00 Test Item Value Reference Range Interpretation Comments Ca Ion WB (test code = Ca Ion WB) 1.09 1.05-1.25 [facility] [id number] 07:28:00 Test Item Value Reference Range Interpretation Comments Phosphorus (test code = Phosphorus) 1.6 2.5-4.5 [facility] RenaissanceHcnalhaSBAVRCMOKS7677-67-66 07:28:00 Test Item Value Reference Range Interpretation Comments RBC Morph (test code = Normal (06/25/16 2:28 AM) RBC Morph) [facility] Renaissan[id number] 07:28:00 Test Item Value Reference Range Interpretation Comments Plt Morph (test code = Normal (06/25/16 2:28 AM) Plt Morph) [facility]2017-04-01 07:28:00 Test Item Value Reference Range Interpretation Comments Ca Norm WB (test code = Ca Norm WB) 1.06 1.05-1.25 [facility]2017-04-01 07:28:00 Test Item Value Reference Range Interpretation Comments Ca Ion WB (test code = Ca Ion WB) 1.09 1.05-1.25 [facility]CHE[facility] [id number] 07:28:00 Test Item Value Reference Range Interpretation Comments Phosphorus (test code = Phosphorus) 1.6 2.5-4.5 [facility] RenaissanceNdrsurdERMAHDFLOK6517-45-61 07:28:00 Test Item Value Reference Range Interpretation Comments RBC Morph (test code = Normal (06/25/16 2:28 AM) RBC Morph) [facility] RenaissanceYralvnxNQMCGBILJW1533-89-82 07:28:00 Test Item Value Reference Range Interpretation Comments Plt Morph (test code = Normal (06/25/16 2:28 AM) Plt Morph) [facility]2017-04-01 07:28:00 Test Item Value Reference Range Interpretation Comments Ca Norm WB (test code = Ca Norm WB) 1.06 1.05-1.25 [facility]2017-04-01 07:28:00 Test Item Value Reference Range Interpretation Comments Ca Ion WB (test code = Ca Ion WB) 1.09 1.05-1.25 [facility] [id number] 07:28:00 Test Item Value Reference Range Interpretation Comments Phosphorus (test code = Phosphorus) 1.6 2.5-4.5 [facility] RenaissanceEynbmtrYQGMQAFBRI4836-87-78 07:28:00 Test Item Value Reference Range Interpretation Comments RBC Morph (test code = Normal (06/25/16 2:28 AM) RBC Morph) [facility] RenaissanceTdssslmNCADLIXRVM5586-92-49 07:28:00 Test Item Value Reference Range Interpretation Comments Plt Morph (test code = Normal (06/25/16 2:28 AM) Plt Morph) [facility]2017-04-01 07:28:00 Test Item Value Reference Range Interpretation Comments Ca Norm WB (test code = Ca Norm WB) 1.06 1.05-1.25 [facility]2017-04-01 07:28:00 Test Item Value Reference Range Interpretation Comments Ca Ion WB (test code = Ca Ion WB) 1.09 1.05-1.25 [facility] [id number] 07:28:00 Test Item Value Reference Range Interpretation Comments Phosphorus (test code = Phosphorus) 1.6 2.5-4.5 [facility] RenaissanceZnktpmwTDHSPKRNED5789-93-19 07:28:00 Test Item Value Reference Range Interpretation Comments RBC Morph (test code = Normal (06/25/16 2:28 AM) RBC Morph) [facility] RenaissanceYbgvzuqLGKMDOJCTW5664-93-38 07:28:00 Test Item Value Reference Range Interpretation Comments Plt Morph (test code = Normal (06/25/16 2:28 AM) Plt Morph) [facility]2017-04-01 07:28:00 Test Item Value Reference Range Interpretation Comments Ca Norm WB (test code = Ca Norm WB) 1.06 1.05-1.25 [facility]2017-04-01 07:28:00 Test Item Value Reference Range Interpretation Comments Ca Ion WB (test code = Ca Ion WB) 1.09 1.05-1.25 [facility]2017-04-01 07:28:00 Test Item Value Reference Range Interpretation Comments Phosphorus (test code = Phosphorus) 1.6 2.5-4.5 [facility] RenaissanceE[id number] 07:28:00 Test Item Value Reference Range Interpretation Comments RBC Morph (test code = Normal (06/25/16 2:28 AM) RBC Morph) [facility] RenaissanceMynljyxYPFIVECFNY1831-32-73 07:28:00 Test Item Value Reference Range Interpretation Comments Plt Morph (test code = Normal (06/25/16 2:28 AM) Plt Morph) [facility]2017-04-01 07:28:00 Test Item Value Reference Range Interpretation Comments Ca Norm WB (test code = Ca Norm WB) 1.06 1.05-1.25 [facility]2017-04-01 07:28:00 Test Item Value Reference Range Interpretation Comments Ca Ion WB (test code = Ca Ion WB) 1.09 1.05-1.25 [facility]2017-04-01 07:28:00 Test Item Value Reference Range Interpretation Comments Phosphorus (test code = Phosphorus) 1.6 2.5-4.5 [facility] RenaissancePzjgbdsYNCMFXVYRJ1812-00-44 07:28:00 Test Item Value Reference Range Interpretation Comments RBC Morph (test code = Normal (06/25/16 2:28 AM) RBC Morph) [facility] RenaissanceRvtbypuVPXZBJMHOT7312-55-08 07:28:00 Test Item Value Reference Range Interpretation Comments Plt Morph (test code = Normal (06/25/16 2:28 AM) Plt Morph) [facility]2017-04-01 07:28:00 Test Item Value Reference Range Interpretation Comments Ca Norm WB (test code = Ca Norm WB) 1.06 1.05-1.25 [facility]2017-04-01 07:28:00 Test Item Value Reference Range Interpretation Comments Ca Ion WB (test code = Ca Ion WB) 1.09 1.05-1.25 [facility] RenaissanceBclnawlLFDNZNORJG0586-85-57 23:42:00 Test Item Value Reference Range Interpretation Comments POC Hematocrit (test code = POC 34.0 42.0-54.0 Hematocrit) [facility] RenaissanceReflkmoDPHOZGDUKB8427-82-96 23:42:00 Test Item Value Reference Range Interpretation Comments POC Hemoglobin (test code = POC 11.6 14.0-18.0 Hemoglobin) [facility] RenaissanceQbmnzxgQVHJLALTOS8474-21-94 23:42:00 Test Item Value Reference Range Interpretation Comments POC Ion Ca (test code = POC Ion Ca) 1.09 1.05-1.25 [facility] RenaissanceClrnfuaYXOSLYRMGS7483-96-04 23:42:00 Test Item Value Reference Range Interpretation Comments POC Potassium (test code = POC 4.4 3.5-5.1 Potassium) [facility] RenaissanceCjggnckQDCGMDJZQB5613-50-65 23:42:00 Test Item Value Reference Range Interpretation Comments POC Sodium (test code = POC Sodium) 143 135-145 [facility] RenaissanceCbpkwszQFYYQAUWVJ3990-59-43 23:42:00 Test Item Value Reference Range Interpretation Comments POC Hematocrit (test code = POC 34.0 42.0-54.0 Hematocrit) [facility] RenaissanceJznkfjuHGCTLAGMRH3064-91-12 23:42:00 Test Item Value Reference Range Interpretation Comments POC Hemoglobin (test code = POC 11.6 14.0-18.0 Hemoglobin) [facility] RenaissanceAvxthmiOYUQFJPFLD6542-70-74 23:42:00 Test Item Value Reference Range Interpretation Comments POC Ion Ca (test code = POC Ion Ca) 1.09 1.05-1.25 [facility] RenaissanceEojffrsXFDSOFSOZT1568-06-32 23:42:00 Test Item Value Reference Range Interpretation Comments POC Potassium (test code = POC 4.4 3.5-5.1 Potassium) [facility] RenaissanceTtbkxpvBELYQIHWDK3401-54-25 23:42:00 Test Item Value Reference Range Interpretation Comments POC Sodium (test code = POC Sodium) 143 135-145 [facility] RenaissanceKtukmirBNOTAHZSIX7055-16-32 23:42:00 Test Item Value Reference Range Interpretation Comments POC Hematocrit (test code = POC 34.0 42.0-54.0 Hematocrit) [facility] RenaissanceDqbpwxqBUHRGGUVKQ3642-55-05 23:42:00 Test Item Value Reference Range Interpretation Comments POC Hemoglobin (test code = POC 11.6 14.0-18.0 Hemoglobin) [facility] RenaissanceDjxmgnuQXNAIXMDGT7827-16-94 23:42:00 Test Item Value Reference Range Interpretation Comments POC Ion Ca (test code = POC Ion Ca) 1.09 1.05-1.25 [facility] RenaissanceVjdstkfIYSJZZAJHP1666-08-29 23:42:00 Test Item Value Reference Range Interpretation Comments POC Potassium (test code = POC 4.4 3.5-5.1 Potassium) [facility] RenaissanceBkbuqlpKPWCHWOZFK8348-43-95 23:42:00 Test Item Value Reference Range Interpretation Comments POC Sodium (test code = POC Sodium) 143 135-145 [facility] RenaissanceNlvfijnCLGMQXBUJO3203-70-70 23:42:00 Test Item Value Reference Range Interpretation Comments POC Hematocrit (test code = POC 34.0 42.0-54.0 Hematocrit) [facility] RenaissanceYxrmdzdNJGXLBKYRD7125-54-39 23:42:00 Test Item Value Reference Range Interpretation Comments POC Hemoglobin (test code = POC 11.6 14.0-18.0 Hemoglobin) [facility] RenaissanceRewsckxYSHNFUKMYO6290-61-89 23:42:00 Test Item Value Reference Range Interpretation Comments POC Ion Ca (test code = POC Ion Ca) 1.09 1.05-1.25 [facility] RenaissanceIbiqjwvFIQEGQUAFU8424-06-32 23:42:00 Test Item Value Reference Range Interpretation Comments POC Potassium (test code = POC 4.4 3.5-5.1 Potassium) [facility] RenaissanceSdesrqfTVOCLXGRYT8974-04-31 23:42:00 Test Item Value Reference Range Interpretation Comments POC Sodium (test code = POC Sodium) 143 135-145 [facility] RenaissanceTeswfshORFDJRHNEC3023-40-78 23:42:00 Test Item Value Reference Range Interpretation Comments POC Hematocrit (test code = POC 34.0 42.0-54.0 Hematocrit) [facility] RenaissancePizizwqDFAMVWNBEH6453-17-11 23:42:00 Test Item Value Reference Range Interpretation Comments POC Hemoglobin (test code = POC 11.6 14.0-18.0 Hemoglobin) [facility] RenaissanceWqewivjMNSNYZYGPY8701-24-58 23:42:00 Test Item Value Reference Range Interpretation Comments POC Ion Ca (test code = POC Ion Ca) 1.09 1.05-1.25 [facility] RenaissanceEcamxlhXWZCVHOMIJ5691-59-45 23:42:00 Test Item Value Reference Range Interpretation Comments POC Potassium (test code = POC 4.4 3.5-5.1 Potassium) [facility] RenaissanceLkkovawSHYNEMSENC9744-04-29 23:42:00 Test Item Value Reference Range Interpretation Comments POC Sodium (test code = POC Sodium) 143 135-145 [facility] RenaissanceWetiflcSOEXZVIMMF9577-97-71 23:42:00 Test Item Value Reference Range Interpretation Comments POC Hematocrit (test code = POC 34.0 42.0-54.0 Hematocrit) [facility] RenaissanceHhlivbnSOCNCSVGNV4105-90-30 23:42:00 Test Item Value Reference Range Interpretation Comments POC Hemoglobin (test code = POC 11.6 14.0-18.0 Hemoglobin) [facility] RenaissanceQfqktnvEAYITRDNJX1820-52-62 23:42:00 Test Item Value Reference Range Interpretation Comments POC Ion Ca (test code = POC Ion Ca) 1.09 1.05-1.25 [facility] RenaissanceOdanfecRCVNKGIXVD1205-69-24 23:42:00 Test Item Value Reference Range Interpretation Comments POC Potassium (test code = POC 4.4 3.5-5.1 Potassium) [facility] RenaissanceKbnoeliSZPMFNZMPB3400-84-92 23:42:00 Test Item Value Reference Range Interpretation Comments POC Sodium (test code = POC Sodium) 143 135-145 [facility] RenaissanceBcnugeeBLVZLFEFIO6505-83-22 23:42:00 Test Item Value Reference Range Interpretation Comments POC Hematocrit (test code = POC 34.0 42.0-54.0 Hematocrit) [facility] RenaissanceYnlmmefGVMRFQETHU8056-59-64 23:42:00 Test Item Value Reference Range Interpretation Comments POC Hemoglobin (test code = POC 11.6 14.0-18.0 Hemoglobin) [facility] RenaissanceDktutilUPHOJDSJAM8507-91-93 23:42:00 Test Item Value Reference Range Interpretation Comments POC Ion Ca (test code = POC Ion Ca) 1.09 1.05-1.25 [facility] RenaissanceDtjdotaKLBEFCOECD0812-73-02 23:42:00 Test Item Value Reference Range Interpretation Comments POC Potassium (test code = POC 4.4 3.5-5.1 Potassium) [facility] RenaissanceTxjtxtfOSBHSRCJWK5373-43-21 23:42:00 Test Item Value Reference Range Interpretation Comments POC Sodium (test code = POC Sodium) 143 135-145 [facility]2017-03-31 23:11:00 Test Item Value Reference Range Interpretation Comments A/G Ratio (test code = A/G Ratio) 1.4 0.7-1.6 [place] 175377-03-31 23:11:00 Test Item Value Reference Range Interpretation Comments Globulin (test code = Globulin) 2.1 2.7-4.2 [place] [address]-03-31 23:11:00 Test Item Value Reference Range Interpretation Comments Bili Indirect (test 0.4 See_Comment [Automa jigar message] The code = Bili Indirect) system which generated this result tra nsmitted reference range : <=1.0. The reference r [place] was not used to int erpret this result as normal/abnormal . [place] 175377-03-31 23:11:00 Test Item Value Reference Range Interpretation Comments Bili Direct (test code 0.2 See_Comment [Aut omated message] The = Bili Direct) system which generated this result tra nsmitted reference range : <=0.3. The reference r [place] was not used to int erpret this result as sonido l/abnormal. [facility]2017-03-31 23:11:00 Test Item Value Reference Range Interpretation Comments Bili Total (test code = Bili Total) 0.6 0.2-1.3 [facility]2017-03-31 23:11:00 Test Item Value Reference Range Interpretation Comments Alk Phos (test code = Alk Phos) 38 39-136 [place] 175377-03-31 23:11:00 Test Item Value Reference Range Interpretation Comments AST (test code = AST) 42 See_Comment [Auto mated message] The system which ge nerated this result transmit jigar reference range : <=37. The reference range was not used to interpr et this result as sonido l/abnormal. [place] 175377-03-31 23:11:00 Test Item Value Reference Range Interpretation Comments ALT (test code = ALT) 51 See_Comment [Auto mated message] The system which ge nerated this result transmit jigar reference range : <=65. The reference range was not used to interpr et this result as sonido l/abnormal. [place] [address]-03-31 23:11:00 Test Item Value Reference Range Interpretation Comments Albumin Lvl (test code = Albumin Lvl) 2.9 3.5-5.0 [facility]2017-03-31 23:11:00 Test Item Value Reference Range Interpretation Comments Total Protein (test code = Total 5.0 6.4-8.4 Protein) [facility]2017-03-31 23:11:00 Test Item Value Reference Range Interpretation Comments Phosphorus (test code = Phosphorus) 2.3 2.5-4.5 [facility] RenaissanceVkohtapVBCDOXHZDW1572-08-49 23:11:00 Test Item Value Reference Range Interpretation Comments FSP (test code = FSP) <5 ug/ml [facility] RenaissanceDxeirebMZOBOSQNTE9945-87-82 23:11:00 Test Item Value Reference Range Interpretation Comments Fibrinogen Lvl (test code = Fibrinogen 206 230-510 Lvl) [facility] RenaissanceFpviqqsGYIBTFHUFF6011-51-31 23:11:00 Test Item Value Reference Range Interpretation Comments PTT (test code = PTT) 34.9 s 22.9-35.8 [facility] RenaissancePsdwupzVJSFWVEXEB0064-77-45 23:11:00 Test Item Value Reference Range Interpretation Comments INR (test code = INR) 1.27 0.85-1.17 [facility] RenaissanceCqydeydXZJNWGHSNS4063-91-45 23:11:00 Test Item Value Reference Range Interpretation Comments PT (test code = PT) 16.2 s 12.0-14.7 [facility] IWKYIIF6372-62-82 23:11:00 Test Item Value Reference Range Interpretation Comments Ca Norm WB (test code = Ca Norm WB) 1.09 1.05-1.25 [facility]2017-03-31 23:11:00 Test Item Value Reference Range Interpretation Comments Ca Ion WB (test code = Ca Ion WB) 1.10 1.05-1.25 [facility]2017-03-31 23:11:00 Test Item Value Reference Range Interpretation Comments A/G Ratio (test code = A/G Ratio) 1.4 0.7-1.6 [facility]2017-03-31 23:11:00 Test Item Value Reference Range Interpretation Comments Globulin (test code = Globulin) 2.1 2.7-4.2 [facility]2017-03-31 23:11:00 Test Item Value Reference Range Interpretation Comments Bili Indirect (test 0.4 See_Comment [Automa jigar message] The code = Bili Indirect) system which generated this result tra nsmitted reference range : <=1.0. The reference r [place] was not used to int erpret this result as normal/abnormal . [facility]2017-03-31 23:11:00 Test Item Value Reference Range Interpretation Comments Bili Direct (test code 0.2 See_Comment [Aut omated message] The = Bili Direct) system which generated this result tra nsmitted reference range : <=0.3. The reference r [place] was not used to int erpret this result as sonido l/abnormal. [facility]2017-03-31 23:11:00 Test Item Value Reference Range Interpretation Comments Bili Total (test code = Bili Total) 0.6 0.2-1.3 [facility]2017-03-31 23:11:00 Test Item Value Reference Range Interpretation Comments Alk Phos (test code = Alk Phos) 38 39-136 [facility]2017-03-31 23:11:00 Test Item Value Reference Range Interpretation Comments AST (test code = AST) 42 See_Comment [Auto mated message] The system which ge nerated this result transmit jigar reference range : <=37. The reference range was not used to interpr et this result as sonido l/abnormal. [facility]2017-03-31 23:11:00 Test Item Value Reference Range Interpretation Comments ALT (test code = ALT) 51 See_Comment [Auto mated message] The system which ge nerated this result transmit jigar reference range : <=65. The reference range was not used to interpr et this result as sonido l/abnormal. [facility]2017-03-31 23:11:00 Test Item Value Reference Range Interpretation Comments Albumin Lvl (test code = Albumin Lvl) 2.9 3.5-5.0 [facility]2017-03-31 23:11:00 Test Item Value Reference Range Interpretation Comments Total Protein (test code = Total 5.0 6.4-8.4 Protein) [facility]2017-03-31 23:11:00 Test Item Value Reference Range Interpretation Comments Phosphorus (test code = Phosphorus) 2.3 2.5-4.5 [facility]tkngjaTKZFQVFPOR1068-09-95 23:11:00 Test Item Value Reference Range Interpretation Comments FSP (test code = FSP) <5 ug/ml [facility] RenaissanceHmwyqriZKOKBYKOGS0585-55-68 23:11:00 Test Item Value Reference Range Interpretation Comments Fibrinogen Lvl (test code = Fibrinogen 206 230-510 Lvl) [facility] RenaissanceYgwqwijMCYXRSJEMV8425-50-19 23:11:00 Test Item Value Reference Range Interpretation Comments PTT (test code = PTT) 34.9 s 22.9-35.8 [facility] RenaissanceUnrcxxxCYPXUTCIRR3339-61-98 23:11:00 Test Item Value Reference Range Interpretation Comments INR (test code = INR) 1.27 0.85-1.17 [facility] RenaissanceZssalpeKRLFXXAFQX8439-25-34 23:11:00 Test Item Value Reference Range Interpretation Comments PT (test code = PT) 16.2 s 12.0-14.7 [facility]2017-03-31 23:11:00 Test Item Value Reference Range Interpretation Comments Ca Norm WB (test code = Ca Norm WB) 1.09 1.05-1.25 [facility]2017-03-31 23:11:00 Test Item Value Reference Range Interpretation Comments Ca Ion WB (test code = Ca Ion WB) 1.10 1.05-1.25 [facility]2017-03-31 23:11:00 Test Item Value Reference Range Interpretation Comments A/G Ratio (test code = A/G Ratio) 1.4 0.7-1.6 [facility]2017-03-31 23:11:00 Test Item Value Reference Range Interpretation Comments Globulin (test code = Globulin) 2.1 2.7-4.2 [facility]2017-03-31 23:11:00 Test Item Value Reference Range Interpretation Comments Bili Indirect (test 0.4 See_Comment [Automa jigar message] The code = Bili Indirect) system which generated this result tra nsmitted reference range : <=1.0. The reference r lou[place] was not used to int erpret this result as normal/abnormal . [place] 175377-03-31 23:11:00 Test Item Value Reference Range Interpretation Comments Bili Direct (test code 0.2 See_Comment [Aut omated message] The = Bili Direct) system which generated this result tra nsmitted reference range : <=0.3. The reference r lou[place] was not used to int erpret this result as sonido l/abnormal. [facility]2017-03-31 23:11:00 Test Item Value Reference Range Interpretation Comments Bili Total (test code = Bili Total) 0.6 0.2-1.3 [place] [address]-03-31 23:11:00 Test Item Value Reference Range Interpretation Comments Alk Phos (test code = Alk Phos) 38 39-136 [place] 175377-03-31 23:11:00 Test Item Value Reference Range Interpretation Comments AST (test code = AST) 42 See_Comment [Auto mated message] The system which ge nerated this result transmit jigar reference range : <=37. The reference range was not used to interpr et this result as sonido l/abnormal. [place] 175377-03-31 23:11:00 Test Item Value Reference Range Interpretation Comments ALT (test code = ALT) 51 See_Comment [Auto mated message] The system which ge nerated this result transmit jigar reference range : <=65. The reference range was not used to interpr et this result as sonido l/abnormal. [facility]2017-03-31 23:11:00 Test Item Value Reference Range Interpretation Comments Albumin Lvl (test code = Albumin Lvl) 2.9 3.5-5.0 [facility]2017-03-31 23:11:00 Test Item Value Reference Range Interpretation Comments Total Protein (test code = Total 5.0 6.4-8.4 Protein) [facility]2017-03-31 23:11:00 Test Item Value Reference Range Interpretation Comments Phosphorus (test code = Phosphorus) 2.3 2.5-4.5 [facility] RenaissanceBuovkrtFGPJFALCON2160-50-12 23:11:00 Test Item Value Reference Range Interpretation Comments FSP (test code = FSP) <5 ug/ml [facility] RenaissanceDfgowucRLTGBYOOWU6006-51-84 23:11:00 Test Item Value Reference Range Interpretation Comments Fibrinogen Lvl (test code = Fibrinogen 206 230-510 Lvl) [facility] RenaissanceEksvpvcBZAWXYTPAD0386-32-06 23:11:00 Test Item Value Reference Range Interpretation Comments PTT (test code = PTT) 34.9 s 22.9-35.8 [facility] RenaissanceVjoxhuwXKFFXOAVOB4627-38-35 23:11:00 Test Item Value Reference Range Interpretation Comments INR (test code = INR) 1.27 0.85-1.17 [facility] RenaissanceNyldqwnNBEJFMSHPP2479-72-12 23:11:00 Test Item Value Reference Range Interpretation Comments PT (test code = PT) 16.2 s 12.0-14.7 [facility]2017-03-31 23:11:00 Test Item Value Reference Range Interpretation Comments Ca Norm WB (test code = Ca Norm WB) 1.09 1.05-1.25 [facility]2017-03-31 23:11:00 Test Item Value Reference Range Interpretation Comments Ca Ion WB (test code = Ca Ion WB) 1.10 1.05-1.25 [facility]2017-03-31 23:11:00 Test Item Value Reference Range Interpretation Comments A/G Ratio (test code = A/G Ratio) 1.4 0.7-1.6 [facility]2017-03-31 23:11:00 Test Item Value Reference Range Interpretation Comments Globulin (test code = Globulin) 2.1 2.7-4.2 [facility]2017-03-31 23:11:00 Test Item Value Reference Range Interpretation Comments Bili Indirect (test code = Bili 0.4 <=1.0 Indirect) [facility]2017-03-31 23:11:00 Test Item Value Reference Range Interpretation Comments Bili Direct (test code = Bili Direct) 0.2 <=0.3 [facility]2017-03-31 23:11:00 Test Item Value Reference Range Interpretation Comments Bili Total (test code = Bili Total) 0.6 0.2-1.3 [facility]2017-03-31 23:11:00 Test Item Value Reference Range Interpretation Comments Alk Phos (test code = Alk Phos) 38 39-136 [facility]2017-03-31 23:11:00 Test Item Value Reference Range Interpretation Comments AST (test code = AST) 42 <=37 [facility]2017-03-31 23:11:00 Test Item Value Reference Range Interpretation Comments ALT (test code = ALT) 51 <=65 [address]03-31 23:11:00 Test Item Value Reference Range Interpretation Comments Albumin Lvl (test code = Albumin Lvl) 2.9 3.5-5.0 [facility]2017-03-31 23:11:00 Test Item Value Reference Range Interpretation Comments Total Protein (test code = Total 5.0 6.4-8.4 Protein) [facility]2017-03-31 23:11:00 Test Item Value Reference Range Interpretation Comments Phosphorus (test code = Phosphorus) 2.3 2.5-4.5 [facility] RenaissanceRnzkvleNPEJJFGGTQ9049-80-10 23:11:00 Test Item Value Reference Range Interpretation Comments FSP (test code = FSP) <5 ug/ml [facility] RenaissanceXvqxtlgWUJPQXHIUG4157-85-86 23:11:00 Test Item Value Reference Range Interpretation Comments Fibrinogen Lvl (test code = Fibrinogen 206 230-510 Lvl) [facility] RenaissanceYwanbgoNPKGOGMDQE7119-74-84 23:11:00 Test Item Value Reference Range Interpretation Comments PTT (test code = PTT) 34.9 s 22.9-35.8 [facility] RenaissanceRyozucsUXXUGCZNGM1057-10-88 23:11:00 Test Item Value Reference Range Interpretation Comments INR (test code = INR) 1.27 0.85-1.17 [facility] RenaissanceIscnhupHXYQBODMXL2790-21-41 23:11:00 Test Item Value Reference Range Interpretation Comments PT (test code = PT) 16.2 s 12.0-14.7 [facility] [id number] 23:11:00 Test Item Value Reference Range Interpretation Comments Ca Norm WB (test code = Ca Norm WB) 1.09 1.05-1.25 [facility]2017-03-31 23:11:00 Test Item Value Reference Range Interpretation Comments Ca Ion WB (test code = Ca Ion WB) 1.10 1.05-1.25 [facility]2017-03-31 23:11:00 Test Item Value Reference Range Interpretation Comments A/G Ratio (test code = A/G Ratio) 1.4 0.7-1.6 [facility]2017-03-31 23:11:00 Test Item Value Reference Range Interpretation Comments Globulin (test code = Globulin) 2.1 2.7-4.2 [place] [address]-03-31 23:11:00 Test Item Value Reference Range Interpretation Comments Bili Indirect (test code = Bili 0.4 <=1.0 Indirect) [place] 175377-03-31 23:11:00 Test Item Value Reference Range Interpretation Comments Bili Direct (test code = Bili Direct) 0.2 <=0.3 [place] [address]-03-31 23:11:00 Test Item Value Reference Range Interpretation Comments Bili Total (test code = Bili Total) 0.6 0.2-1.3 [place] [address]377-03-31 23:11:00 Test Item Value Reference Range Interpretation Comments Alk Phos (test code = Alk Phos) 38 39-136 [place] 175377-03-31 23:11:00 Test Item Value Reference Range Interpretation Comments AST (test code = AST) 42 <=37 [place] [address]-03-31 23:11:00 Test Item Value Reference Range Interpretation Comments ALT (test code = ALT) 51 <=65 [place] [address]377-03-31 23:11:00 Test Item Value Reference Range Interpretation Comments Albumin Lvl (test code = Albumin Lvl) 2.9 3.5-5.0 [place] [address]377-03-31 23:11:00 Test Item Value Reference Range Interpretation Comments Total Protein (test code = Total 5.0 6.4-8.4 Protein) [place] [address]377-03-31 23:11:00 Test Item Value Reference Range Interpretation Comments Phosphorus (test code = Phosphorus) 2.3 2.5-4.5 [facility] RenaissanceXtihqufFBBECOIDNG7331-57-49 23:11:00 Test Item Value Reference Range Interpretation Comments FSP (test code = FSP) <5 ug/ml [place] [address]-03-31 23:11:00 Test Item Value Reference Range Interpretation Comments Fibrinogen Lvl (test code = Fibrinogen 206 230-510 Lvl) [facility] RenaissanceYvglusqZSNPQYNQBJ3480-61-55 23:11:00 Test Item Value Reference Range Interpretation Comments PTT (test code = PTT) 34.9 s 22.9-35.8 [place] 959877-03-31 23:11:00 Test Item Value Reference Range Interpretation Comments INR (test code = INR) 1.27 0.85-1.17 [facility]LngcgckTTJILZNCMJ7615-39-34 23:11:00 Test Item Value Reference Range Interpretation Comments PT (test code = PT) 16.2 s 12.0-14.7 [id number] 23:11:00 Test Item Value Reference Range Interpretation Comments Ca Norm WB (test code = Ca Norm WB) 1.09 1.05-1.25 [facility] [id number] 23:11:00 Test Item Value Reference Range Interpretation Comments Ca Ion WB (test code = Ca Ion WB) 1.10 1.05-1.25 [facility]2017-03-31 23:11:00 Test Item Value Reference Range Interpretation Comments A/G Ratio (test code = A/G Ratio) 1.4 0.7-1.6 [facility]2017-03-31 23:11:00 Test Item Value Reference Range Interpretation Comments Globulin (test code = Globulin) 2.1 2.7-4.2 [facility]2017-03-31 23:11:00 Test Item Value Reference Range Interpretation Comments Bili Indirect (test code = Bili 0.4 <=1.0 Indirect) [facility]2017-03-31 23:11:00 Test Item Value Reference Range Interpretation Comments Bili Direct (test code = Bili Direct) 0.2 <=0.3 [facility]2017-03-31 23:11:00 Test Item Value Reference Range Interpretation Comments Bili Total (test code = Bili Total) 0.6 0.2-1.3 [facility]2017-03-31 23:11:00 Test Item Value Reference Range Interpretation Comments Alk Phos (test code = Alk Phos) 38 39-136 [facility]2017-03-31 23:11:00 Test Item Value Reference Range Interpretation Comments AST (test code = AST) 42 <=37 [facility]2017-03-31 23:11:00 Test Item Value Reference Range Interpretation Comments ALT (test code = ALT) 51 <=65 [facility]2017-03-31 23:11:00 Test Item Value Reference Range Interpretation Comments Albumin Lvl (test code = Albumin Lvl) 2.9 3.5-5.0 [facility]2017-03-31 23:11:00 Test Item Value Reference Range Interpretation Comments Total Protein (test code = Total 5.0 6.4-8.4 Protein) [facility]2017-03-31 23:11:00 Test Item Value Reference Range Interpretation Comments Phosphorus (test code = Phosphorus) 2.3 2.5-4.5 [facility] RenaissanceAsayvakRWSFNNWAKV2923-48-29 23:11:00 Test Item Value Reference Range Interpretation Comments FSP (test code = FSP) <5 ug/ml [facility] RenaissanceIdympuwOSJVUATAHV3090-10-00 23:11:00 Test Item Value Reference Range Interpretation Comments Fibrinogen Lvl (test code = Fibrinogen 206 230-510 Lvl) [facility] RenaissanceVwkblizAJFGQMVBUT3897-71-34 23:11:00 Test Item Value Reference Range Interpretation Comments PTT (test code = PTT) 34.9 s 22.9-35.8 [facility] RenaissanceFmupborTNVHETWZOU9008-82-85 23:11:00 Test Item Value Reference Range Interpretation Comments INR (test code = INR) 1.27 0.85-1.17 [facility] RenaissanceGlvsluiZPTSSTGHAP1582-38-53 23:11:00 Test Item Value Reference Range Interpretation Comments PT (test code = PT) 16.2 s 12.0-14.7 [facility] [id number] 23:11:00 Test Item Value Reference Range Interpretation Comments Ca Norm WB (test code = Ca Norm WB) 1.09 1.05-1.25 [facility]2017-03-31 23:11:00 Test Item Value Reference Range Interpretation Comments Ca Ion WB (test code = Ca Ion WB) 1.10 1.05-1.25 [facility]2017-03-31 23:11:00 Test Item Value Reference Range Interpretation Comments A/G Ratio (test code = A/G Ratio) 1.4 0.7-1.6 [facility]2017-03-31 23:11:00 Test Item Value Reference Range Interpretation Comments Globulin (test code = Globulin) 2.1 2.7-4.2 [facility]2017-03-31 23:11:00 Test Item Value Reference Range Interpretation Comments Bili Indirect (test code = Bili 0.4 <=1.0 Indirect) [facility]2017-03-31 23:11:00 Test Item Value Reference Range Interpretation Comments Bili Direct (test code = Bili Direct) 0.2 <=0.3 [place] [address]-03-31 23:11:00 Test Item Value Reference Range Interpretation Comments Bili Total (test code = Bili Total) 0.6 0.2-1.3 [place] [address]-03-31 23:11:00 Test Item Value Reference Range Interpretation Comments Alk Phos (test code = Alk Phos) 38 39-136 [place] 175377-03-31 23:11:00 Test Item Value Reference Range Interpretation Comments AST (test code = AST) 42 <=37 [place] [address]-03-31 23:11:00 Test Item Value Reference Range Interpretation Comments ALT (test code = ALT) 51 <=65 [place] [address]-03-31 23:11:00 Test Item Value Reference Range Interpretation Comments Albumin Lvl (test code = Albumin Lvl) 2.9 3.5-5.0 [place] [address]377-03-31 23:11:00 Test Item Value Reference Range Interpretation Comments Total Protein (test code = Total 5.0 6.4-8.4 Protein) [place] [address]377-03-31 23:11:00 Test Item Value Reference Range Interpretation Comments Phosphorus (test code = Phosphorus) 2.3 2.5-4.5 [place] 959877-03-31 23:11:00 Test Item Value Reference Range Interpretation Comments FSP (test code = FSP) <5 ug/ml [facility] RenaissanceLsxopxsSUCKJEZIZM5352-13-16 23:11:00 Test Item Value Reference Range Interpretation Comments Fibrinogen Lvl (test code = Fibrinogen 206 230-510 Lvl) [facility] RenaissanceCmkgjhgXVNQTALLFV8869-50-72 23:11:00 Test Item Value Reference Range Interpretation Comments PTT (test code = PTT) 34.9 s 22.9-35.8 [place] [address]-03-31 23:11:00 Test Item Value Reference Range Interpretation Comments INR (test code = INR) 1.27 0.85-1.17 [place] 959877-03-31 23:11:00 Test Item Value Reference Range Interpretation Comments PT (test code = PT) 16.2 s 12.0-14.7 [facility]2017-03-31 23:11:00 Test Item Value Reference Range Interpretation Comments Ca Norm WB (test code = Ca Norm WB) 1.09 1.05-1.25 [facility]2017-03-31 23:11:00 Test Item Value Reference Range Interpretation Comments Ca Ion WB (test code = Ca Ion WB) 1.10 1.05-1.25 [facility] RenaissanceRjhdmmnGAAEUNSGNT2208-27-91 22:13:00 Test Item Value Reference Range Interpretation Comments Fibrinogen Lvl (test code = Fibrinogen 196 230-510 Lvl) [facility] RenaissanceKcnfaymEUXUJCUZNB7804-29-36 22:13:00 Test Item Value Reference Range Interpretation Comments PTT (test code = PTT) 32.8 s 22.9-35.8 [facility] RenaissanceYiabgmnRPJULOWPEP6939-91-08 22:13:00 Test Item Value Reference Range Interpretation Comments PT (test code = PT) 16.6 s 12.0-14.7 [facility] RenaissanceAflypkqLWQLSVYURV6184-90-44 22:13:00 Test Item Value Reference Range Interpretation Comments INR (test code = INR) 1.32 0.85-1.17 [facility] RenaissanceJcpwnpaMZNLJYTUME3646-93-30 22:13:00 Test Item Value Reference Range Interpretation Comments Fibrinogen Lvl (test code = Fibrinogen 196 230-510 Lvl) [facility] RenaissanceYlbgkocGALOONVSNZ1685-71-40 22:13:00 Test Item Value Reference Range Interpretation Comments PTT (test code = PTT) 32.8 s 22.9-35.8 [facility] RenaissanceIhfnjllKUQHEAHJGK4660-77-19 22:13:00 Test Item Value Reference Range Interpretation Comments PT (test code = PT) 16.6 s 12.0-14.7 [facility] RenaissanceKxtiirtGMNZDFRFQQ2210-89-94 22:13:00 Test Item Value Reference Range Interpretation Comments INR (test code = INR) 1.32 0.85-1.17 [facility] RenaissanceFidxajeSVIKUOYPIP1791-43-87 22:13:00 Test Item Value Reference Range Interpretation Comments Fibrinogen Lvl (test code = Fibrinogen 196 230-510 Lvl) [facility] RenaissanceSbggxehXTZFYFPANG5426-49-39 22:13:00 Test Item Value Reference Range Interpretation Comments PTT (test code = PTT) 32.8 s 22.9-35.8 [facility] RenaissanceXwcdinyODFRKCDKJE6325-61-07 22:13:00 Test Item Value Reference Range Interpretation Comments PT (test code = PT) 16.6 s 12.0-14.7 [facility] RenaissanceDrjtehpGQSIOKATYV6804-76-21 22:13:00 Test Item Value Reference Range Interpretation Comments INR (test code = INR) 1.32 0.85-1.17 [facility] RenaissanceFfzcsagHJUZWBWSMN4045-87-99 22:13:00 Test Item Value Reference Range Interpretation Comments Fibrinogen Lvl (test code = Fibrinogen 196 230-510 Lvl) [facility] RenaissanceFtazaqmQSBRRHKFKE2032-92-51 22:13:00 Test Item Value Reference Range Interpretation Comments PTT (test code = PTT) 32.8 s 22.9-35.8 [facility] RenaissanceRcamninZBXQTCQLYP7371-58-75 22:13:00 Test Item Value Reference Range Interpretation Comments PT (test code = PT) 16.6 s 12.0-14.7 [facility] RenaissanceZkhbwtbFVXJKZEDPZ3815-72-11 22:13:00 Test Item Value Reference Range Interpretation Comments INR (test code = INR) 1.32 0.85-1.17 [facility] RenaissanceCtfuhetDSNHDQRVPK5095-84-76 22:13:00 Test Item Value Reference Range Interpretation Comments Fibrinogen Lvl (test code = Fibrinogen 196 230-510 Lvl) [facility] RenaissanceAhacwgbXLPVATHAHR2300-54-01 22:13:00 Test Item Value Reference Range Interpretation Comments PTT (test code = PTT) 32.8 s 22.9-35.8 [facility] RenaissanceKthxibtIWXMHLVFDS8370-18-88 22:13:00 Test Item Value Reference Range Interpretation Comments PT (test code = PT) 16.6 s 12.0-14.7 [facility] RenaissanceTufgaojSCOONCXZMU5350-45-80 22:13:00 Test Item Value Reference Range Interpretation Comments INR (test code = INR) 1.32 0.85-1.17 [facility] RenaissanceZhxhcrqVIGZXHWSVD3542-09-38 22:13:00 Test Item Value Reference Range Interpretation Comments Fibrinogen Lvl (test code = Fibrinogen 196 230-510 Lvl) [facility] RenaissanceCrkopfaEHEIGOWJBW5116-92-73 22:13:00 Test Item Value Reference Range Interpretation Comments PTT (test code = PTT) 32.8 s 22.9-35.8 [facility] RenaissanceRuwacbyGHSPCHFHRH7668-71-86 22:13:00 Test Item Value Reference Range Interpretation Comments PT (test code = PT) 16.6 s 12.0-14.7 [facility] RenaissanceNazovhePUUTLSDTJK8473-48-84 22:13:00 Test Item Value Reference Range Interpretation Comments INR (test code = INR) 1.32 0.85-1.17 [facility] RenaissanceCbjgpohGFLNKGWPRK1763-02-05 22:13:00 Test Item Value Reference Range Interpretation Comments Fibrinogen Lvl (test code = Fibrinogen 196 230-510 Lvl) [facility] RenaissanceKbbahtlBDUIIIBPSU6870-84-99 22:13:00 Test Item Value Reference Range Interpretation Comments PTT (test code = PTT) 32.8 s 22.9-35.8 [facility] RenaissanceFixzbocKJGKYHXQDR1241-60-55 22:13:00 Test Item Value Reference Range Interpretation Comments PT (test code = PT) 16.6 s 12.0-14.7 [facility] RenaissanceTcozrqkRHWPEDOMRK8029-37-10 22:13:00 Test Item Value Reference Range Interpretation Comments INR (test code = INR) 1.32 0.85-1.17 [facility] [id number] 09:15:00 Test Item Value Reference Range Interpretation Comments Antibody Scrn (test Negative (06/24/16 4:15 code = Antibody Scrn) AM) [facility] [id number] 09:15:00 Test Item Value Reference Range Interpretation Comments ABO/Rh (test code = ABO/Rh) A [facility] [id number] 09:15:00 Test Item Value Reference Range Interpretation Comments Antibody Scrn (test Negative (06/24/16 4:15 code = Antibody Scrn) AM) [facility] [id number] 09:15:00 Test Item Value Reference Range Interpretation Comments ABO/Rh (test code = ABO/Rh) A [facility] LQYWKQX0694-14-28 09:15:00 Test Item Value Reference Range Interpretation Comments Antibody Scrn (test Negative (06/24/16 4:15 code = Antibody Scrn) AM) [facility] [id number] 09:15:00 Test Item Value Reference Range Interpretation Comments ABO/Rh (test code = ABO/Rh) A [facility] [id number] 09:15:00 Test Item Value Reference Range Interpretation Comments Antibody Scrn (test Negative (06/24/16 4:15 code = Antibody Scrn) AM) [facility] [id number] 09:15:00 Test Item Value Reference Range Interpretation Comments ABO/Rh (test code = ABO/Rh) A POS [facility] [id number] 09:15:00 Test Item Value Reference Range Interpretation Comments Antibody Scrn (test Negative (06/24/16 4:15 code = Antibody Scrn) AM) [facility] [id number] 09:15:00 Test Item Value Reference Range Interpretation Comments ABO/Rh (test code = ABO/Rh) A [facility] [id number] 09:15:00 Test Item Value Reference Range Interpretation Comments Antibody Scrn (test Negative (06/24/16 4:15 code = Antibody Scrn) AM) [facility] [id number] 09:15:00 Test Item Value Reference Range Interpretation Comments ABO/Rh (test code = ABO/Rh) A [facility] [id number] 09:15:00 Test Item Value Reference Range Interpretation Comments Antibody Scrn (test Negative (06/24/16 4:15 code = Antibody Scrn) AM) [facility] [id number] 09:15:00 Test Item Value Reference Range Interpretation Comments ABO/Rh (test code = ABO/Rh) A [facility] [id number] 09:00:00 Test Item Value Reference Range Interpretation Comments Platelet product (test Product available code = Platelet (06/24/16 4:00 AM) product) [facility] [id number] 09:00:00 Test Item Value Reference Range Interpretation Comments FFP product (test code Product available = FFP product) (06/24/16 4:00 AM) [facility] [id number] 09:00:00 Test Item Value Reference Range Interpretation Comments Cryo product (test Product available code = Cryo product) (06/24/16 4:00 AM) [facility] [id number] 09:00:00 Test Item Value Reference Range Interpretation Comments RBC product (test code Product available = RBC product) (06/24/16 4:00 AM) [facility] [id number] 09:00:00 Test Item Value Reference Range Interpretation Comments Platelet product (test Product available code = Platelet (06/24/16 4:00 AM) product) [facility] [id number] 09:00:00 Test Item Value Reference Range Interpretation Comments FFP product (test code Product available = FFP product) (06/24/16 4:00 AM) [facility] [id number] 09:00:00 Test Item Value Reference Range Interpretation Comments Cryo product (test Product available code = Cryo product) (06/24/16 4:00 AM) [facility] [id number] 09:00:00 Test Item Value Reference Range Interpretation Comments RBC product (test code Product available = RBC product) (06/24/16 4:00 AM) [facility] [facility] [id number] 09:00:00 Test Item Value Reference Range Interpretation Comments Platelet product (test Product available code = Platelet (06/24/16 4:00 AM) product) [facility] [id number] 09:00:00 Test Item Value Reference Range Interpretation Comments FFP product (test code Product available = FFP product) (06/24/16 4:00 AM) [facility] [id number] 09:00:00 Test Item Value Reference Range Interpretation Comments Cryo product (test Product available code = Cryo product) (06/24/16 4:00 AM) [facility] [id number] 09:00:00 Test Item Value Reference Range Interpretation Comments RBC product (test code Product available = RBC product) (06/24/16 4:00 AM) [facility] [id number] 09:00:00 Test Item Value Reference Range Interpretation Comments Platelet product (test Product available code = Platelet (06/24/16 4:00 AM) product) [facility] [id number] 09:00:00 Test Item Value Reference Range Interpretation Comments FFP product (test code Product available = FFP product) (06/24/16 4:00 AM) [facility] [id number] 09:00:00 Test Item Value Reference Range Interpretation Comments Cryo product (test Product available code = Cryo product) (06/24/16 4:00 AM) [facility] [id number] 09:00:00 Test Item Value Reference Range Interpretation Comments RBC product (test code Product available = RBC product) (06/24/16 4:00 AM) [facility] [id number] 09:00:00 Test Item Value Reference Range Interpretation Comments Platelet product (test Product available code = Platelet (06/24/16 4:00 AM) product) [facility] [id number] 09:00:00 Test Item Value Reference Range Interpretation Comments FFP product (test code Product available = FFP product) (06/24/16 4:00 AM) [facility] [id number] 09:00:00 Test Item Value Reference Range Interpretation Comments Cryo product (test Product available code = Cryo product) (06/24/16 4:00 AM) [facility] [id number] 09:00:00 Test Item Value Reference Range Interpretation Comments RBC product (test code Product available = RBC product) (06/24/16 4:00 AM) [facility] [id number] 09:00:00 Test Item Value Reference Range Interpretation Comments Platelet product (test Product available code = Platelet (06/24/16 4:00 AM) product) [facility] [id number] 09:00:00 Test Item Value Reference Range Interpretation Comments FFP product (test code Product available = FFP product) (06/24/16 4:00 AM) [facility] [id number] 09:00:00 Test Item Value Reference Range Interpretation Comments Cryo product (test Product available code = Cryo product) (06/24/16 4:00 AM) [facility] [id number] 09:00:00 Test Item Value Reference Range Interpretation Comments RBC product (test code Product available = RBC product) (06/24/16 4:00 AM) [facility] [id number] 09:00:00 Test Item Value Reference Range Interpretation Comments Platelet product (test Product available code = Platelet (06/24/16 4:00 AM) product) [facility] [id number] 09:00:00 Test Item Value Reference Range Interpretation Comments FFP product (test code Product available = FFP product) (06/24/16 4:00 AM) [facility] [id number] 09:00:00 Test Item Value Reference Range Interpretation Comments Cryo product (test Product available code = Cryo product) (06/24/16 4:00 AM) [facility] [id number] 09:00:00 Test Item Value Reference Range Interpretation Comments RBC product (test code Product available = RBC product) (06/24/16 4:00 AM) [id number] 10:18:00 Test Item Value Reference Range Interpretation Comments INR (test code = INR) 1.05 0.85-1.17 [facility]JohmcvgKQJFWJXMVK9205-31-29 10:18:00 Test Item Value Reference Range Interpretation Comments PTT (test code = PTT) 37.0 s 22.9-35.8 [facility] RenaissanceRbyqulcLSWHWYREYI4938-26-95 10:18:00 Test Item Value Reference Range Interpretation Comments PT (test code = PT) 13.9 s 12.0-14.7 [facility] RenaissanceGvechgsPXXQBWEHNV8297-36-08 10:18:00 Test Item Value Reference Range Interpretation Comments INR (test code = INR) 1.05 0.85-1.17 [facility] RenaissanceEiewonuHLCQQAWJWB9554-90-38 10:18:00 Test Item Value Reference Range Interpretation Comments PTT (test code = PTT) 37.0 s 22.9-35.8 [facility] RenaissanceOtszmuiCKINJLEGAJ9990-99-36 10:18:00 Test Item Value Reference Range Interpretation Comments PT (test code = PT) 13.9 s 12.0-14.7 [facility] RenaissanceErnyjylLXENFAPNWY4204-90-53 10:18:00 Test Item Value Reference Range Interpretation Comments INR (test code = INR) 1.05 0.85-1.17 [facility] RenaissanceDfdpdhaULGCBKXGSO0582-24-00 10:18:00 Test Item Value Reference Range Interpretation Comments PTT (test code = PTT) 37.0 s 22.9-35.8 [facility] RenaissanceGylvxjxDMOZBUSAHG1230-05-89 10:18:00 Test Item Value Reference Range Interpretation Comments PT (test code = PT) 13.9 s 12.0-14.7 [facility] RenaissanceUwoqfbxAJDAAASPZK4094-18-26 10:18:00 Test Item Value Reference Range Interpretation Comments INR (test code = INR) 1.05 0.85-1.17 [facility] RenaissanceXkogvwiBNMDQVUEAV4401-00-66 10:18:00 Test Item Value Reference Range Interpretation Comments PTT (test code = PTT) 37.0 s 22.9-35.8 [facility] RenaissanceQdlqfyiLQYONMMOPA7912-42-18 10:18:00 Test Item Value Reference Range Interpretation Comments PT (test code = PT) 13.9 s 12.0-14.7 [facility] RenaissanceJnrzvzyMKOREEANRL8946-68-14 10:18:00 Test Item Value Reference Range Interpretation Comments INR (test code = INR) 1.05 0.85-1.17 [facility] RenaissanceEnltmxdAGPHAQVMIA6758-23-91 10:18:00 Test Item Value Reference Range Interpretation Comments PTT (test code = PTT) 37.0 s 22.9-35.8 [facility] RenaissanceMuglupvYOPQRMRKXV3524-69-90 10:18:00 Test Item Value Reference Range Interpretation Comments PT (test code = PT) 13.9 s 12.0-14.7 [facility] RenaissanceCegdkisQRFKHYKRRC7356-60-13 10:18:00 Test Item Value Reference Range Interpretation Comments INR (test code = INR) 1.05 0.85-1.17 [facility] RenaissanceZnwprkkZKYTGQGKAF1809-19-30 10:18:00 Test Item Value Reference Range Interpretation Comments PTT (test code = PTT) 37.0 s 22.9-35.8 [facility] RenaissanceSzieevqSKJOKJNQFC3949-58-74 10:18:00 Test Item Value Reference Range Interpretation Comments PT (test code = PT) 13.9 s 12.0-14.7 [facility] RenaissanceVylzehtKORGFWDZRL4790-72-57 10:18:00 Test Item Value Reference Range Interpretation Comments INR (test code = INR) 1.05 0.85-1.17 [facility] RenaissanceUvfydjvIEKZKCDWIG2622-80-16 10:18:00 Test Item Value Reference Range Interpretation Comments PTT (test code = PTT) 37.0 s 22.9-35.8 [facility] RenaissanceUzxkeezOCIABBYRPW6719-45-97 10:18:00 Test Item Value Reference Range Interpretation Comments PT (test code = PT) 13.9 s 12.0-14.7 [facility] [id number] 10:18:00 Test Item Value Reference Range Interpretation Comments ABO/Rh (test code = ABO/Rh) A POS [facility] [id number] 10:18:00 Test Item Value Reference Range Interpretation Comments Antibody Scrn (test Negative (06/20/16 5:18 code = Antibody Scrn) AM) [facility] RenaissanceTmemgijEXFASZPIGD9280-31-01 10:18:00 Test Item Value Reference Range Interpretation Comments Plt Morph (test code = Normal (06/20/16 5:18 Plt Morph) AM) [facility] RenaissanceMakbdvwMQBGJULZJS0934-85-90 10:18:00 Test Item Value Reference Range Interpretation Comments RBC Morph (test code = Normal (06/20/16 5:18 RBC Morph) AM) [facility]2017-03-27 10:18:00 Test Item Value Reference Range Interpretation Comments HCV RNA Log10 (test code = HCV RNA 6.9 Log10) [facility]2017-03-27 10:18:00 Test Item Value Reference Range Interpretation Comments HCV RNA VirLoad (test code = HCV RNA [id number] VirLoad) [facility] [id number] 10:18:00 Test Item Value Reference Range Interpretation Comments ABO/Rh (test code = ABO/Rh) A POS [facility] [id number] 10:18:00 Test Item Value Reference Range Interpretation Comments Antibody Scrn (test Negative (06/20/16 5:18 code = Antibody Scrn) AM) [facility] RenaissanceMpyztrsAGOCDTAQAV9072-54-79 10:18:00 Test Item Value Reference Range Interpretation Comments Plt Morph (test code = Normal (06/20/16 5:18 Plt Morph) AM) [facility] RenaissanceFvozbckEAIMZUMIXT5075-85-17 10:18:00 Test Item Value Reference Range Interpretation Comments RBC Morph (test code = Normal (06/20/16 5:18 RBC Morph) AM) [facility]2017-03-27 10:18:00 Test Item Value Reference Range Interpretation Comments HCV RNA Log10 (test code = HCV RNA 6.9 Log10) [facility]2017-03-27 10:18:00 Test Item Value Reference Range Interpretation Comments HCV RNA VirLoad (test code = HCV RNA [id number] VirLoad) [facility] [id number] 10:18:00 Test Item Value Reference Range Interpretation Comments ABO/Rh (test code = ABO/Rh) A POS [facility] [id number] 10:18:00 Test Item Value Reference Range Interpretation Comments Antibody Scrn (test Negative (06/20/16 5:18 code = Antibody Scrn) AM) [facility] RenaissanceEckhrvmYRIQPVMQKT2879-98-71 10:18:00 Test Item Value Reference Range Interpretation Comments Plt Morph (test code = Normal (06/20/16 5:18 Plt Morph) AM) [facility] RenaissanceHawkjejJZNPPAZVTY5338-31-88 10:18:00 Test Item Value Reference Range Interpretation Comments RBC Morph (test code = Normal (06/20/16 5:18 RBC Morph) AM) [facility]2017-03-27 10:18:00 Test Item Value Reference Range Interpretation Comments HCV RNA Log10 (test code = HCV RNA 6.9 Log10) [facility] [id number] 10:18:00 Test Item Value Reference Range Interpretation Comments HCV RNA VirLoad (test code = HCV RNA [id number] VirLoad) [facility] [id number] 10:18:00 Test Item Value Reference Range Interpretation Comments ABO/Rh (test code = ABO/Rh) A POS [facility] [id number] 10:18:00 Test Item Value Reference Range Interpretation Comments Antibody Scrn (test Negative (06/20/16 5:18 code = Antibody Scrn) AM) [facility] RenaissanceOzcryhsOEICIGVMKW6065-01-95 10:18:00 Test Item Value Reference Range Interpretation Comments Plt Morph (test code = Normal (06/20/16 5:18 Plt Morph) AM) [facility] RenaissanceCrksdvvRLNMZYOBPF4785-64-68 10:18:00 Test Item Value Reference Range Interpretation Comments RBC Morph (test code = Normal (06/20/16 5:18 RBC Morph) AM) [facility]2017-03-27 10:18:00 Test Item Value Reference Range Interpretation Comments HCV RNA Log10 (test code = HCV RNA 6.9 Log10) [facility]2017-03-27 10:18:00 Test Item Value Reference Range Interpretation Comments HCV RNA VirLoad (test code = HCV RNA [id number] VirLoad) [facility] [id number] 10:18:00 Test Item Value Reference Range Interpretation Comments ABO/Rh (test code = ABO/Rh) A POS [facility] [id number] 10:18:00 Test Item Value Reference Range Interpretation Comments Antibody Scrn (test Negative (06/20/16 5:18 code = Antibody Scrn) AM) [facility] RenaissanceLkbskhqITJRJCZDJU2385-18-78 10:18:00 Test Item Value Reference Range Interpretation Comments Plt Morph (test code = Normal (06/20/16 5:18 Plt Morph) AM) [facility] RenaissanceHtqmkdcOQCNMKCWWM0993-34-64 10:18:00 Test Item Value Reference Range Interpretation Comments RBC Morph (test code = Normal (06/20/16 5:18 RBC Morph) AM) [facility]2017-03-27 10:18:00 Test Item Value Reference Range Interpretation Comments HCV RNA Log10 (test code = HCV RNA 6.9 Log10) [facility] [id number] 10:18:00 Test Item Value Reference Range Interpretation Comments HCV RNA VirLoad (test code = HCV RNA [id number] VirLoad) [facility] [id number] 10:18:00 Test Item Value Reference Range Interpretation Comments ABO/Rh (test code = ABO/Rh) A POS [facility] [id number] 10:18:00 Test Item Value Reference Range Interpretation Comments Antibody Scrn (test Negative (06/20/16 5:18 code = Antibody Scrn) AM) [facility] RenaissanceQwregwwGECGRYHWNZ1392-29-14 10:18:00 Test Item Value Reference Range Interpretation Comments Plt Morph (test code = Normal (06/20/16 5:18 Plt Morph) AM) [facility] RenaissanceVsonqylXLDLJNQWWQ4589-02-57 10:18:00 Test Item Value Reference Range Interpretation Comments RBC Morph (test code = Normal (06/20/16 5:18 RBC Morph) AM) [facility] [id number] 10:18:00 Test Item Value Reference Range Interpretation Comments HCV RNA Log10 (test code = HCV RNA 6.9 Log10) [facility]2017-03-27 10:18:00 Test Item Value Reference Range Interpretation Comments HCV RNA VirLoad (test code = HCV RNA [id number] VirLoad) [facility] [id number] 10:18:00 Test Item Value Reference Range Interpretation Comments ABO/Rh (test code = ABO/Rh) A POS [facility] [id number] 10:18:00 Test Item Value Reference Range Interpretation Comments Antibody Scrn (test Negative (06/20/16 5:18 code = Antibody Scrn) AM) [facility] 10:18:00 Test Item Value Reference Range Interpretation Comments Plt Morph (test code = Normal (06/20/16 5:18 Plt Morph) AM) [facility] RenaissanceNhijoesPKCZDFEJUG1664-29-23 10:18:00 Test Item Value Reference Range Interpretation Comments RBC Morph (test code = Normal (06/20/16 5:18 RBC Morph) AM) [facility] [id number] 10:18:00 Test Item Value Reference Range Interpretation Comments HCV RNA Log10 (test code = HCV RNA 6.9 Log10) [facility] [id number] 10:18:00 Test Item Value Reference Range Interpretation Comments HCV RNA VirLoad (test code = HCV RNA 1501932 VirLoad) [facility] [id number] 10:00:00 Test Item Value Reference Range Interpretation Comments FFP product (test code Product available = FFP product) (06/20/16 5:00 AM) [facility] [id number] 10:00:00 Test Item Value Reference Range Interpretation Comments Cryo product (test Product available code = Cryo product) (06/20/16 5:00 AM) [facility] [id number] 10:00:00 Test Item Value Reference Range Interpretation Comments RBC product (test code Product available = RBC product) (06/20/16 5:00 AM) [facility] [id number] 10:00:00 Test Item Value Reference Range Interpretation Comments Platelet product (test Product available code = Platelet (06/20/16 5:00 AM) product) [facility] [id number] 10:00:00 Test Item Value Reference Range Interpretation Comments FFP product (test code Product available = FFP product) (06/20/16 5:00 AM) [facility] [id number] 10:00:00 Test Item Value Reference Range Interpretation Comments Cryo product (test Product available code = Cryo product) (06/20/16 5:00 AM) [facility] [id number] 10:00:00 Test Item Value Reference Range Interpretation Comments RBC product (test code Product available = RBC product) (06/20/16 5:00 AM) [facility] [id number] 10:00:00 Test Item Value Reference Range Interpretation Comments Platelet product (test Product available code = Platelet (06/20/16 5:00 AM) product) [facility] [id number] 10:00:00 Test Item Value Reference Range Interpretation Comments FFP product (test code Product available = FFP product) (06/20/16 5:00 AM) [facility] [id number] 10:00:00 Test Item Value Reference Range Interpretation Comments Cryo product (test Product available code = Cryo product) (06/20/16 5:00 AM) [facility] [id number] 10:00:00 Test Item Value Reference Range Interpretation Comments RBC product (test code Product available = RBC product) (06/20/16 5:00 AM) [facility] [id number] 10:00:00 Test Item Value Reference Range Interpretation Comments Platelet product (test Product available code = Platelet (06/20/16 5:00 AM) product) [facility] [id number] 10:00:00 Test Item Value Reference Range Interpretation Comments FFP product (test code Product available = FFP product) (06/20/16 5:00 AM) [facility] [id number] 10:00:00 Test Item Value Reference Range Interpretation Comments Cryo product (test Product available code = Cryo product) (06/20/16 5:00 AM) [facility] [id number] 10:00:00 Test Item Value Reference Range Interpretation Comments RBC product (test code Product available = RBC product) (06/20/16 5:00 AM) [facility] [id number] 10:00:00 Test Item Value Reference Range Interpretation Comments Platelet product (test Product available code = Platelet (06/20/16 5:00 AM) product) [facility] [id number] 10:00:00 Test Item Value Reference Range Interpretation Comments FFP product (test code Product available = FFP product) (06/20/16 5:00 AM) [facility] [id number] 10:00:00 Test Item Value Reference Range Interpretation Comments Cryo product (test Product available code = Cryo product) (06/20/16 5:00 AM) [facility] [id number] 10:00:00 Test Item Value Reference Range Interpretation Comments RBC product (test code Product available = RBC product) (06/20/16 5:00 AM) [facility] [id number] 10:00:00 Test Item Value Reference Range Interpretation Comments Platelet product (test Product available code = Platelet (06/20/16 5:00 AM) product) [facility] [id number] 10:00:00 Test Item Value Reference Range Interpretation Comments FFP product (test code Product available = FFP product) (06/20/16 5:00 AM) [facility] [id number] 10:00:00 Test Item Value Reference Range Interpretation Comments Cryo product (test Product available code = Cryo product) (06/20/16 5:00 AM) [facility] [id number] 10:00:00 Test Item Value Reference Range Interpretation Comments RBC product (test code Product available = RBC product) (06/20/16 5:00 AM) [facility] [id number] 10:00:00 Test Item Value Reference Range Interpretation Comments Platelet product (test Product available code = Platelet (06/20/16 5:00 AM) product) [facility] [id number] 10:00:00 Test Item Value Reference Range Interpretation Comments FFP product (test code Product available = FFP product) (06/20/16 5:00 AM) [facility] [id number] 10:00:00 Test Item Value Reference Range Interpretation Comments Cryo product (test Product available code = Cryo product) (06/20/16 5:00 AM) [facility] [id number] 10:00:00 Test Item Value Reference Range Interpretation Comments RBC product (test code Product available = RBC product) (06/20/16 5:00 AM) [facility]Viv[facility]uxO[facility] [id number] 10:00:00 Test Item Value Reference Range Interpretation Comments Platelet product (test Product available code = Platelet (06/20/16 5:00 AM) product) [facility] [id number] 10:33:00 Test Item Value Reference Range Interpretation Comments MRSA by PCR (test Negative (06/18/16 5:33 code = MRSA by PCR) AM) [facility] [employer] [id number] 10:33:00 Test Item Value Reference Range Interpretation Comments B/C Ratio (test code = B/C Ratio) 18 09-18 [facility] [employer] [id number] 10:33:00 Test Item Value Reference Range Interpretation Comments Globulin (test code = Globulin) 3.9 2.7-4.2 [facility] [employer] [id number] 10:33:00 Test Item Value Reference Range Interpretation Comments A/G Ratio (test code = A/G Ratio) 0.8 0.7-1.6 [facility] [employer] [id number] 10:33:00 Test Item Value Reference Range Interpretation Comments ALT (test code = ALT) 67 See_Comment [Auto mated message] The system which ge nerated this result transmit jigar reference range : <=65. The reference range was not used to interpr et this result as sonido l/abnormal. [facility] [employer] [id number] 10:33:00 Test Item Value Reference Range Interpretation Comments AST (test code = AST) 74 See_Comment [Auto mated message] The system which ge nerated this result transmit jigar reference range : <=37. The reference range was not used to interpr et this result as sonido l/abnormal. [facility] [employer] [id number] 10:33:00 Test Item Value Reference Range Interpretation Comments Total Protein (test code = Total 7.1 6.4-8.4 Protein) [facility]icsPhlex[facility] [id number] 10:33:00 Test Item Value Reference Range Interpretation Comments Albumin Lvl (test code = Albumin Lvl) 3.2 3.5-5.0 [facility]icsannCHEM [id number] 10:33:00 Test Item Value Reference Range Interpretation Comments Alk Phos (test code = Alk Phos) 58 39-136 [facility]icsannCHEM [id number] 10:33:00 Test Item Value Reference Range Interpretation Comments Bili Total (test code = Bili Total) 0.4 0.2-1.3 [id number] 10:33:00 Test Item Value Reference Range Interpretation Comments CHD Risk (test code = CHD Risk) 4.04 4.00-7.30 [facility]icsHsbeytnRWXXPS5492-60-30 10:33:00 Test Item Value Reference Range Interpretation Comments VLDL (test code = VLDL) 16 [facility] [id number] 10:33:00 Test Item Value Reference Range Interpretation Comments LDL (Calculated) (test code = LDL 121 (Calculated)) [facility]icsDxwbjokKNDYRJ8307-10-17 10:33:00 Test Item Value Reference Range Interpretation Comments HDL (test code = HDL) 45 [facility] ClinicsPvlsyawPODEYJ6683-03-12 10:33:00 Test Item Value Reference Range Interpretation Comments Trig (test code = Trig) 82 [facility] [id number] 10:33:00 Test Item Value Reference Range Interpretation Comments [facility] (test code = Chol) [id number] 10:33:00 Test Item Value Reference Range Interpretation Comments Hgb A1C (test code = Hgb A1C) 6.4 [facility] [id number] 10:33:00 Test Item Value Reference Range Interpretation Comments UA Urobilinogen (test code = UA no gt 0.1-1.0 Urobilinogen) [facility] [id number] 10:33:00 Test Item Value Reference Range Interpretation Comments UA Sq Epi (test code = UA Sq Epi) None [facility]en [facility] [id number] 10:33:00 Test Item Value Reference Range Interpretation Comments UA RBC (test code = no gt See_Comment [Automa jigar message] The UA RBC) system which ge nerated this result transmit jigar reference range : <=2. The reference range was not used to interpr et this result as sonido l/abnormal. [facility] AND [id number] 10:33:00 Test Item Value Reference Range Interpretation Comments UA Bili (test code = Negative *NA*(06/18/16 UA Bili) 5:33 AM) [facility] AND [id number] 10:33:00 Test Item Value Reference Range Interpretation Comments UA Ketones (test code = UA Negative mg/dL Ketones) [facility] AND [id number] 10:33:00 Test Item Value Reference Range Interpretation Comments UA Glucose (test code = UA Negative mg/dL Glucose) [facility] AND [id number] 10:33:00 Test Item Value Reference Range Interpretation Comments UA WBC (test code = no gt See_Comment [Automa jigar message] The UA WBC) system which ge nerated this result transmit jigar reference range : <=5. The reference range was not used to interpr et this result as sonido l/abnormal. [facility] AND [id number] 10:33:00 Test Item Value Reference Range Interpretation Comments UA Leuk Est (test Negative (06/18/16 5:33 code = UA Leuk Est) AM) [facility] AND [id number] 10:33:00 Test Item Value Reference Range Interpretation Comments UA Nitrite (test code Negative (06/18/16 5:33 = UA Nitrite) AM) [facility] AND [id number] 10:33:00 Test Item Value Reference Range Interpretation Comments UA Blood (test code = Negative (06/18/16 5:33 UA Blood) AM) [facility] AND [id number] 10:33:00 Test Item Value Reference Range Interpretation Comments UA Protein (test code = UA Negative mg/dL Protein) [facility] AND [id number] 10:33:00 Test Item Value Reference Range Interpretation Comments UA Color (test code = Light Yellow UA Color) *NA*(06/18/16 5:33 AM) [facility] AND [id number] 10:33:00 Test Item Value Reference Range Interpretation Comments UA Turbidity (test code = Clear (06/18/16 5:33 UA Turbidity) AM) [facility] AND [id number] 10:33:00 Test Item Value Reference Range Interpretation Comments UA pH (test code = UA pH) 5.0 5.0-8.0 [facility] [id number] 10:33:00 Test Item Value Reference Range Interpretation Comments UA Spec Grav (test code = UA Spec Grav) 1.008 [facility] [id number] 10:33:00 Test Item Value Reference Range Interpretation Comments MRSA by PCR (test Negative (06/18/16 5:33 code = MRSA by PCR) AM) [facility] [id number] 10:33:00 Test Item Value Reference Range Interpretation Comments B/C Ratio (test code = B/C Ratio) 18 09-18 [facility] [id number] 10:33:00 Test Item Value Reference Range Interpretation Comments Globulin (test code = Globulin) 3.9 2.7-4.2 [facility]2017-03-25 10:33:00 Test Item Value Reference Range Interpretation Comments A/G Ratio (test code = A/G Ratio) 0.8 0.7-1.6 [facility]2017-03-25 10:33:00 Test Item Value Reference Range Interpretation Comments ALT (test code = ALT) 67 See_Comment [Auto mated message] The system which ge nerated this result transmit jigar reference range : <=65. The reference range was not used to interpr et this result as sonido l/abnormal. [facility]2017-03-25 10:33:00 Test Item Value Reference Range Interpretation Comments AST (test code = AST) 74 See_Comment [Auto mated message] The system which ge nerated this result transmit jigar reference range : <=37. The reference range was not used to interpr et this result as sonido l/abnormal. [facility] [id number] 10:33:00 Test Item Value Reference Range Interpretation Comments Total Protein (test code = Total 7.1 6.4-8.4 Protein) [facility]2017-03-25 10:33:00 Test Item Value Reference Range Interpretation Comments Albumin Lvl (test code = Albumin Lvl) 3.2 3.5-5.0 [facility]2017-03-25 10:33:00 Test Item Value Reference Range Interpretation Comments Alk Phos (test code = Alk Phos) 58 39-136 [facility] [id number] 10:33:00 Test Item Value Reference Range Interpretation Comments Bili Total (test code = Bili Total) 0.4 0.2-1.3 [id number] 10:33:00 Test Item Value Reference Range Interpretation Comments CHD Risk (test code = CHD Risk) 4.04 4.00-7.30 [facility] [id number] 10:33:00 Test Item Value Reference Range Interpretation Comments VLDL (test code = VLDL) 16 [id number] 10:33:00 Test Item Value Reference Range Interpretation Comments LDL (Calculated) (test code = LDL 121 (Calculated)) [facility] [id number] 10:33:00 Test Item Value Reference Range Interpretation Comments HDL (test code = HDL) 45 [facility] [id number] 10:33:00 Test Item Value Reference Range Interpretation Comments Trig (test code = Trig) 82 [facility] [id number] 10:33:00 Test Item Value Reference Range Interpretation Comments Chol (test code = Chol) 182 [facility] [id number] 10:33:00 Test Item Value Reference Range Interpretation Comments Hgb A1C (test code = Hgb A1C) 6.4 [facility] AND [id number] 10:33:00 Test Item Value Reference Range Interpretation Comments UA Urobilinogen (test code = UA no gt 0.1-1.0 Urobilinogen) [facility] [id number] 10:33:00 Test Item Value Reference Range Interpretation Comments UA Sq Epi (test code = UA Sq Epi) None Seen [facility]ann[facility] AND [id number] 10:33:00 Test Item Value Reference Range Interpretation Comments UA RBC (test code = no gt See_Comment [Automa jigar message] The UA RBC) system which ge nerated this result transmit jigar reference range : <=2. The reference range was not used to interpr et this result as sonido l/abnormal. [facility] [id number] 10:33:00 Test Item Value Reference Range Interpretation Comments UA Bili (test code = Negative *NA*(06/18/16 UA Bili) 5:33 AM) [facility] AND [id number] 10:33:00 Test Item Value Reference Range Interpretation Comments UA Ketones (test code = UA Negative mg/dL Ketones) [facility] AND [id number] 10:33:00 Test Item Value Reference Range Interpretation Comments UA Glucose (test code = UA Negative mg/dL Glucose) [facility] AND [id number] 10:33:00 Test Item Value Reference Range Interpretation Comments UA WBC (test code = no gt See_Comment [Automa jigar message] The UA WBC) system which ge nerated this result transmit jigar reference range : <=5. The reference range was not used to interpr et this result as sonido l/abnormal. [facility] AND [id number] 10:33:00 Test Item Value Reference Range Interpretation Comments UA Leuk Est (test Negative (06/18/16 5:33 code = UA Leuk Est) AM) [facility] AND [id number] 10:33:00 Test Item Value Reference Range Interpretation Comments UA Nitrite (test code Negative (06/18/16 5:33 = UA Nitrite) AM) [facility] AND [id number] 10:33:00 Test Item Value Reference Range Interpretation Comments UA Blood (test code = Negative (06/18/16 5:33 UA Blood) AM) [facility] AND [id number] 10:33:00 Test Item Value Reference Range Interpretation Comments UA Protein (test code = UA Negative mg/dL Protein) [facility] AND [id number] 10:33:00 Test Item Value Reference Range Interpretation Comments UA Color (test code = Light Yellow UA Color) *NA*(06/18/16 5:33 AM) [facility] AND [id number] 10:33:00 Test Item Value Reference Range Interpretation Comments UA Turbidity (test code = Clear (06/18/16 5:33 UA Turbidity) AM) [facility] AND [id number] 10:33:00 Test Item Value Reference Range Interpretation Comments UA pH (test code = UA pH) 5.0 5.0-8.0 [facility] AND [id number] 10:33:00 Test Item Value Reference Range Interpretation Comments UA Spec Grav (test code = UA Spec Grav) 1.008 [facility] [id number] 10:33:00 Test Item Value Reference Range Interpretation Comments MRSA by PCR (test Negative (06/18/16 5:33 code = MRSA by PCR) AM) [facility]2017-03-25 10:33:00 Test Item Value Reference Range Interpretation Comments B/C Ratio (test code = B/C Ratio) 18 -25 [facility]2017-03-25 10:33:00 Test Item Value Reference Range Interpretation Comments Globulin (test code = Globulin) 3.9 2.7-4.2 [facility]2017-03-25 10:33:00 Test Item Value Reference Range Interpretation Comments A/G Ratio (test code = A/G Ratio) 0.8 0.7-1.6 [facility]2017-03-25 10:33:00 Test Item Value Reference Range Interpretation Comments ALT (test code = ALT) 67 See_Comment [Auto mated message] The system which ge nerated this result transmit jigar reference range : <=65. The reference range was not used to interpr et this result as sonido l/abnormal. [facility] [id number] 10:33:00 Test Item Value Reference Range Interpretation Comments AST (test code = AST) 74 See_Comment [Auto mated message] The system which ge nerated this result transmit jigar reference range : <=37. The reference range was not used to interpr et this result as sonido l/abnormal. [facility] [id number] 10:33:00 Test Item Value Reference Range Interpretation Comments Total Protein (test code = Total 7.1 6.4-8.4 Protein) [facility]2017-03-25 10:33:00 Test Item Value Reference Range Interpretation Comments Albumin Lvl (test code = Albumin Lvl) 3.2 3.5-5.0 [facility]2017-03-25 10:33:00 Test Item Value Reference Range Interpretation Comments Alk Phos (test code = Alk Phos) 58 39-136 [facility] [id number] 10:33:00 Test Item Value Reference Range Interpretation Comments Bili Total (test code = Bili Total) 0.4 0.2-1.3 [id number] 10:33:00 Test Item Value Reference Range Interpretation Comments CHD Risk (test code = CHD Risk) 4.04 4.00-7.30 [facility] [id number] 10:33:00 Test Item Value Reference Range Interpretation Comments VLDL (test code = VLDL) 16 [facility] HospitalXiwgeyiJXLUEU8918-03-26 10:33:00 Test Item Value Reference Range Interpretation Comments LDL (Calculated) (test code = LDL 121 (Calculated)) [facility] [id number] 10:33:00 Test Item Value Reference Range Interpretation Comments HDL (test code = HDL) 45 [facility] [id number] 10:33:00 Test Item Value Reference Range Interpretation Comments Trig (test code = Trig) 82 [facility] [id number] 10:33:00 Test Item Value Reference Range Interpretation Comments Chol (test code = Chol) 182 [facility] [id number] 10:33:00 Test Item Value Reference Range Interpretation Comments Hgb A1C (test code = Hgb A1C) 6.4 [facility] AND [id number] 10:33:00 Test Item Value Reference Range Interpretation Comments UA Urobilinogen (test code = UA no gt 0.1-1.0 Urobilinogen) [facility] AND [id number] 10:33:00 Test Item Value Reference Range Interpretation Comments UA Sq Epi (test code = UA Sq Epi) None Seen [facility] AND [id number] 10:33:00 Test Item Value Reference Range Interpretation Comments UA RBC (test code = no gt See_Comment [Automa jigar message] The UA RBC) system which ge nerated this result transmit jigar reference range : <=2. The reference range was not used to interpr et this result as sonido l/abnormal. [facility] AND [id number] 10:33:00 Test Item Value Reference Range Interpretation Comments UA Bili (test code = Negative *NA*(06/18/16 UA Bili) 5:33 AM) [facility] AND [id number] 10:33:00 Test Item Value Reference Range Interpretation Comments UA Ketones (test code = UA Negative mg/dL Ketones) [facility] AND [id number] 10:33:00 Test Item Value Reference Range Interpretation Comments UA Glucose (test code = UA Negative mg/dL Glucose) [facility] AND [id number] 10:33:00 Test Item Value Reference Range Interpretation Comments UA WBC (test code = no gt See_Comment [Automa jigar message] The UA WBC) system which ge nerated this result transmit jigar reference range : <=5. The reference range was not used to interpr et this result as sonido l/abnormal. [facility] AND [id number] 10:33:00 Test Item Value Reference Range Interpretation Comments UA Leuk Est (test Negative (06/18/16 5:33 code = UA Leuk Est) AM) [facility] AND [id number] 10:33:00 Test Item Value Reference Range Interpretation Comments UA Nitrite (test code Negative (06/18/16 5:33 = UA Nitrite) AM) [facility] AND [id number] 10:33:00 Test Item Value Reference Range Interpretation Comments UA Blood (test code = Negative (06/18/16 5:33 UA Blood) AM) [facility] AND [id number] 10:33:00 Test Item Value Reference Range Interpretation Comments UA Protein (test code = UA Negative mg/dL Protein) [facility] AND [id number] 10:33:00 Test Item Value Reference Range Interpretation Comments UA Color (test code = Light Yellow UA Color) *NA*(06/18/16 5:33 AM) [facility] AND [id number] 10:33:00 Test Item Value Reference Range Interpretation Comments UA Turbidity (test code = Clear (06/18/16 5:33 UA Turbidity) AM) [facility] AND [id number] 10:33:00 Test Item Value Reference Range Interpretation Comments UA pH (test code = UA pH) 5.0 5.0-8.0 [facility] AND [id number] 10:33:00 Test Item Value Reference Range Interpretation Comments UA Spec Grav (test code = UA Spec Grav) 1.008 [facility] [id number] 10:33:00 Test Item Value Reference Range Interpretation Comments MRSA by PCR (test Negative (06/18/16 5:33 code = MRSA by PCR) AM) [facility]2017-03-25 10:33:00 Test Item Value Reference Range Interpretation Comments B/C Ratio (test code = B/C Ratio) 18 6-25 [facility]2017-03-25 10:33:00 Test Item Value Reference Range Interpretation Comments Globulin (test code = Globulin) 3.9 2.7-4.2 [facility]2017-03-25 10:33:00 Test Item Value Reference Range Interpretation Comments A/G Ratio (test code = A/G Ratio) 0.8 0.7-1.6 [facility]2017-03-25 10:33:00 Test Item Value Reference Range Interpretation Comments ALT (test code = ALT) 67 <=65 [facility]2017-03-25 10:33:00 Test Item Value Reference Range Interpretation Comments AST (test code = AST) 74 <=37 [facility]2017-03-25 10:33:00 Test Item Value Reference Range Interpretation Comments Total Protein (test code = Total 7.1 6.4-8.4 Protein) [facility]2017-03-25 10:33:00 Test Item Value Reference Range Interpretation Comments Albumin Lvl (test code = Albumin Lvl) 3.2 3.5-5.0 [facility]2017-03-25 10:33:00 Test Item Value Reference Range Interpretation Comments Alk Phos (test code = Alk Phos) 58 39-136 [facility]2017-03-25 10:33:00 Test Item Value Reference Range Interpretation Comments Bili Total (test code = Bili Total) 0.4 0.2-1.3 [facility] [id number] 10:33:00 Test Item Value Reference Range Interpretation Comments CHD Risk (test code = CHD Risk) 4.04 4.00-7.30 [facility] [id number] 10:33:00 Test Item Value Reference Range Interpretation Comments VLDL (test code = VLDL) 16 [id number] 10:33:00 Test Item Value Reference Range Interpretation Comments LDL (Calculated) (test code = LDL 121 (Calculated)) [id number] 10:33:00 Test Item Value Reference Range Interpretation Comments HDL (test code = HDL) 45 [facility] [id number] 10:33:00 Test Item Value Reference Range Interpretation Comments Trig (test code = Trig) 82 [facility] [id number] 10:33:00 Test Item Value Reference Range Interpretation Comments Chol (test code = Chol) 182 [facility] [id number] 10:33:00 Test Item Value Reference Range Interpretation Comments Hgb A1C (test code = Hgb A1C) 6.4 [facility] AND [id number] 10:33:00 Test Item Value Reference Range Interpretation Comments UA Urobilinogen (test code = UA no gt 0.1-1.0 Urobilinogen) [facility] AND [id number] 10:33:00 Test Item Value Reference Range Interpretation Comments UA Sq Epi (test code = UA Sq Epi) None Seen [facility] AND [id number] 10:33:00 Test Item Value Reference Range Interpretation Comments UA RBC (test code = UA RBC) no gt <=2 [facility] AND [id number] 10:33:00 Test Item Value Reference Range Interpretation Comments UA Bili (test code = Negative *NA*(06/18/16 UA Bili) 5:33 AM) [facility] AND [id number] 10:33:00 Test Item Value Reference Range Interpretation Comments UA Ketones (test code = UA Negative mg/dL Ketones) [facility] AND [id number] 10:33:00 Test Item Value Reference Range Interpretation Comments UA Glucose (test code = UA Negative mg/dL Glucose) [facility] AND [id number] 10:33:00 Test Item Value Reference Range Interpretation Comments UA WBC (test code = UA WBC) no gt <=5 [facility] AND [id number] 10:33:00 Test Item Value Reference Range Interpretation Comments UA Leuk Est (test Negative (06/18/16 5:33 code = UA Leuk Est) AM) [facility] AND [id number] 10:33:00 Test Item Value Reference Range Interpretation Comments UA Nitrite (test code Negative (06/18/16 5:33 = UA Nitrite) AM) [facility] [id number] 10:33:00 Test Item Value Reference Range Interpretation Comments UA Blood (test code = Negative (06/18/16 5:33 UA Blood) AM) [facility] [id number] 10:33:00 Test Item Value Reference Range Interpretation Comments UA Protein (test code = UA Negative mg/dL Protein) [facility] [id number] 10:33:00 Test Item Value Reference Range Interpretation Comments UA Color (test code = Light Yellow UA Color) *NA*(06/18/16 5:33 AM) [facility] [id number] 10:33:00 Test Item Value Reference Range Interpretation Comments UA Turbidity (test code = Clear (06/18/16 5:33 UA Turbidity) AM) [facility] [id number] 10:33:00 Test Item Value Reference Range Interpretation Comments UA pH (test code = UA pH) 5.0 5.0-8.0 [facility] [id number] 10:33:00 Test Item Value Reference Range Interpretation Comments UA Spec Grav (test code = UA Spec Grav) 1.008 [facility] [id number] 10:33:00 Test Item Value Reference Range Interpretation Comments MRSA by PCR (test Negative (06/18/16 5:33 code = MRSA by PCR) AM) [facility]annCHEM [id number] 10:33:00 Test Item Value Reference Range Interpretation Comments B/C Ratio (test code = B/C Ratio) 18 6-25 [facility] [id number] 10:33:00 Test Item Value Reference Range Interpretation Comments Globulin (test code = Globulin) 3.9 2.7-4.2 [facility] [id number] 10:33:00 Test Item Value Reference Range Interpretation Comments A/G Ratio (test code = A/G Ratio) 0.8 0.7-1.6 [facility]annCHEM [id number] 10:33:00 Test Item Value Reference Range Interpretation Comments ALT (test code = ALT) 67 <=65 [facility]annCHEM [id number] 10:33:00 Test Item Value Reference Range Interpretation Comments AST (test code = AST) 74 <=37 [facility] [id number] 10:33:00 Test Item Value Reference Range Interpretation Comments Total Protein (test code = Total 7.1 6.4-8.4 Protein) [facility] [id number] 10:33:00 Test Item Value Reference Range Interpretation Comments Albumin Lvl (test code = Albumin Lvl) 3.2 3.5-5.0 [facility] [id number] 10:33:00 Test Item Value Reference Range Interpretation Comments Alk Phos (test code = Alk Phos) 58 39-136 [facility] [id number] 10:33:00 Test Item Value Reference Range Interpretation Comments Bili Total (test code = Bili Total) 0.4 0.2-1.3 [facility] [id number] 10:33:00 Test Item Value Reference Range Interpretation Comments CHD Risk (test code = CHD Risk) 4.04 4.00-7.30 [facility] [id number] 10:33:00 Test Item Value Reference Range Interpretation Comments VLDL (test code = VLDL) 16 [facility] [id number] 10:33:00 Test Item Value Reference Range Interpretation Comments LDL (Calculated) (test code = LDL 121 (Calculated)) [facility] [id number] 10:33:00 Test Item Value Reference Range Interpretation Comments HDL (test code = HDL) 45 [facility] [id number] 10:33:00 Test Item Value Reference Range Interpretation Comments Trig (test code = Trig) 82 [facility] ClinicsUytzkfdNJPXUG4900-52-12 10:33:00 Test Item Value Reference Range Interpretation Comments Chol (test code = Chol) 182 [facility] [id number] 10:33:00 Test Item Value Reference Range Interpretation Comments Hgb A1C (test code = Hgb A1C) 6.4 [facility] AND [id number] 10:33:00 Test Item Value Reference Range Interpretation Comments UA Urobilinogen (test code = UA no gt 0.1-1.0 Urobilinogen) [facility] AND [id number] 10:33:00 Test Item Value Reference Range Interpretation Comments UA Sq Epi (test code = UA Sq Epi) None Seen [facility] AND [id number] 10:33:00 Test Item Value Reference Range Interpretation Comments UA RBC (test code = UA RBC) no gt <=2 [facility] AND [id number] 10:33:00 Test Item Value Reference Range Interpretation Comments UA Bili (test code = Negative *NA*(06/18/16 UA Bili) 5:33 AM) [facility] AND [id number] 10:33:00 Test Item Value Reference Range Interpretation Comments UA Ketones (test code = UA Negative mg/dL Ketones) [facility] AND [id number] 10:33:00 Test Item Value Reference Range Interpretation Comments UA Glucose (test code = UA Negative mg/dL Glucose) [facility] AND [id number] 10:33:00 Test Item Value Reference Range Interpretation Comments UA WBC (test code = UA WBC) no gt <=5 [facility] AND [id number] 10:33:00 Test Item Value Reference Range Interpretation Comments UA Leuk Est (test Negative (06/18/16 5:33 code = UA Leuk Est) AM) [facility] AND [id number] 10:33:00 Test Item Value Reference Range Interpretation Comments UA Nitrite (test code Negative (06/18/16 5:33 = UA Nitrite) AM) [facility] AND [id number] 10:33:00 Test Item Value Reference Range Interpretation Comments UA Blood (test code = Negative (06/18/16 5:33 UA Blood) AM) [facility] AND [id number] 10:33:00 Test Item Value Reference Range Interpretation Comments UA Protein (test code = UA Negative mg/dL Protein) [facility] AND [id number] 10:33:00 Test Item Value Reference Range Interpretation Comments UA Color (test code = Light Yellow UA Color) *NA*(06/18/16 5:33 AM) [facility] AND [id number] 10:33:00 Test Item Value Reference Range Interpretation Comments UA Turbidity (test code = Clear (06/18/16 5:33 UA Turbidity) AM) [facility] AND [id number] 10:33:00 Test Item Value Reference Range Interpretation Comments UA pH (test code = UA pH) 5.0 5.0-8.0 [facility] [id number] 10:33:00 Test Item Value Reference Range Interpretation Comments UA Spec Grav (test code = UA Spec Grav) [facility].008 [facility] [id number] 10:33:00 Test Item Value Reference Range Interpretation Comments MRSA by PCR (test Negative (06/18/16 5:33 code = MRSA by PCR) AM) [facility] [id number] 10:33:00 Test Item Value Reference Range Interpretation Comments B/C Ratio (test code = B/C Ratio) 18 6-25 [facility] [id number] 10:33:00 Test Item Value Reference Range Interpretation Comments Globulin (test code = Globulin) 3.9 2.7-4.2 [facility] [id number] 10:33:00 Test Item Value Reference Range Interpretation Comments A/G Ratio (test code = A/G Ratio) 0.8 0.7-1.6 [facility] [id number] 10:33:00 Test Item Value Reference Range Interpretation Comments ALT (test code = ALT) 67 <=65 [facility] [id number] 10:33:00 Test Item Value Reference Range Interpretation Comments AST (test code = AST) 74 <=37 [facility] [id number] 10:33:00 Test Item Value Reference Range Interpretation Comments Total Protein (test code = Total 7.1 6.4-8.4 Protein) [facility] [id number] 10:33:00 Test Item Value Reference Range Interpretation Comments Albumin Lvl (test code = Albumin Lvl) 3.2 3.5-5.0 [facility] [id number] 10:33:00 Test Item Value Reference Range Interpretation Comments Alk Phos (test code = Alk Phos) 58 39-136 [facility] [id number] 10:33:00 Test Item Value Reference Range Interpretation Comments Bili Total (test code = Bili Total) 0.4 0.2-1.3 [id number] 10:33:00 Test Item Value Reference Range Interpretation Comments CHD Risk (test code = CHD Risk) 4.04 4.00-7.30 [id number] 10:33:00 Test Item Value Reference Range Interpretation Comments VLDL (test code = VLDL) 16 [facility] [id number] 10:33:00 Test Item Value Reference Range Interpretation Comments LDL (Calculated) (test code = LDL 121 (Calculated)) [id number] 10:33:00 Test Item Value Reference Range Interpretation Comments HDL (test code = HDL) 45 [id number] 10:33:00 Test Item Value Reference Range Interpretation Comments Trig (test code = Trig) 82 [facility] [id number] 10:33:00 Test Item Value Reference Range Interpretation Comments Chol (test code = Chol) 182 [facility] [id number] 10:33:00 Test Item Value Reference Range Interpretation Comments Hgb A1C (test code = Hgb A1C) 6.4 [facility] AND [id number] 10:33:00 Test Item Value Reference Range Interpretation Comments UA Urobilinogen (test code = UA no gt 0.1-1.0 Urobilinogen) [facility] AND [id number] 10:33:00 Test Item Value Reference Range Interpretation Comments UA Sq Epi (test code = UA Sq Epi) None Seen [facility] AND [id number] 10:33:00 Test Item Value Reference Range Interpretation Comments UA RBC (test code = UA RBC) no gt <=2 [facility] AND [id number] 10:33:00 Test Item Value Reference Range Interpretation Comments UA Bili (test code = Negative *NA*(06/18/16 UA Bili) 5:33 AM) [facility] AND [id number] 10:33:00 Test Item Value Reference Range Interpretation Comments UA Ketones (test code = UA Negative mg/dL Ketones) [facility] AND [id number] 10:33:00 Test Item Value Reference Range Interpretation Comments UA Glucose (test code = UA Negative mg/dL Glucose) [facility] AND [id number] 10:33:00 Test Item Value Reference Range Interpretation Comments UA WBC (test code = UA WBC) no gt <=5 [facility] AND [id number] 10:33:00 Test Item Value Reference Range Interpretation Comments UA Leuk Est (test Negative (06/18/16 5:33 code = UA Leuk Est) AM) [facility] AND [id number] 10:33:00 Test Item Value Reference Range Interpretation Comments UA Nitrite (test code Negative (06/18/16 5:33 = UA Nitrite) AM) [facility] AND [id number] 10:33:00 Test Item Value Reference Range Interpretation Comments UA Blood (test code = Negative (06/18/16 5:33 UA Blood) AM) [facility] AND [id number] 10:33:00 Test Item Value Reference Range Interpretation Comments UA Protein (test code = UA Negative mg/dL Protein) [facility] AND [id number] 10:33:00 Test Item Value Reference Range Interpretation Comments UA Color (test code = Light Yellow UA Color) *NA*(06/18/16 5:33 AM) [facility] AND [id number] 10:33:00 Test Item Value Reference Range Interpretation Comments UA Turbidity (test code = Clear (06/18/16 5:33 UA Turbidity) AM) [facility] AND [id number] 10:33:00 Test Item Value Reference Range Interpretation Comments UA pH (test code = UA pH) 5.0 5.0-8.0 [facility] AND [id number] 10:33:00 Test Item Value Reference Range Interpretation Comments UA Spec Grav (test code = UA Spec Grav) 1.008 [facility]icsannBACTERIAL - [id number] 10:33:00 Test Item Value Reference Range Interpretation Comments MRSA by PCR (test Negative (06/18/16 5:33 code = MRSA by PCR) AM) [facility] [id number] 10:33:00 Test Item Value Reference Range Interpretation Comments B/C Ratio (test code = B/C Ratio) 18 09-18 [facility]annCHEM [id number] 10:33:00 Test Item Value Reference Range Interpretation Comments Globulin (test code = Globulin) 3.9 2.7-4.2 [facility] [id number] 10:33:00 Test Item Value Reference Range Interpretation Comments A/G Ratio (test code = A/G Ratio) 0.8 0.7-1.6 [facility] [id number] 10:33:00 Test Item Value Reference Range Interpretation Comments ALT (test code = ALT) 67 <=65 [facility] [id number] 10:33:00 Test Item Value Reference Range Interpretation Comments AST (test code = AST) 74 <=37 [facility] [id number] 10:33:00 Test Item Value Reference Range Interpretation Comments Total Protein (test code = Total 7.1 6.4-8.4 Protein) [facility] [id number] 10:33:00 Test Item Value Reference Range Interpretation Comments Albumin Lvl (test code = Albumin Lvl) 3.2 3.5-5.0 [facility] [id number] 10:33:00 Test Item Value Reference Range Interpretation Comments Alk Phos (test code = Alk Phos) 58 39-136 [facility] [id number] 10:33:00 Test Item Value Reference Range Interpretation Comments Bili Total (test code = Bili Total) 0.4 0.2-1.3 [facility] [id number] 10:33:00 Test Item Value Reference Range Interpretation Comments CHD Risk (test code = CHD Risk) 4.04 4.00-7.30 [facility] [id number] 10:33:00 Test Item Value Reference Range Interpretation Comments VLDL (test code = VLDL) 16 [facility] [id number] 10:33:00 Test Item Value Reference Range Interpretation Comments LDL (Calculated) (test code = LDL 121 (Calculated)) [facility] [id number] 10:33:00 Test Item Value Reference Range Interpretation Comments HDL (test code = HDL) 45 [facility] [id number] 10:33:00 Test Item Value Reference Range Interpretation Comments Trig (test code = Trig) 82 [facility] [id number] 10:33:00 Test Item Value Reference Range Interpretation Comments Chol (test code = Chol) 182 [facility] [id number] 10:33:00 Test Item Value Reference Range Interpretation Comments Hgb A1C (test code = Hgb A1C) 6.4 [facility] [id number] 10:33:00 Test Item Value Reference Range Interpretation Comments UA Urobilinogen (test code = UA no gt 0.1-1.0 Urobilinogen) [facility] AND [id number] 10:33:00 Test Item Value Reference Range Interpretation Comments UA Sq Epi (test code = UA Sq Epi) None Seen [facility] AND [id number] 10:33:00 Test Item Value Reference Range Interpretation Comments UA RBC (test code = UA RBC) no gt <=2 [facility] AND [id number] 10:33:00 Test Item Value Reference Range Interpretation Comments UA Bili (test code = Negative *NA*(06/18/16 UA Bili) 5:33 AM) [facility] AND [id number] 10:33:00 Test Item Value Reference Range Interpretation Comments UA Ketones (test code = UA Negative mg/dL Ketones) [facility] AND [id number] 10:33:00 Test Item Value Reference Range Interpretation Comments UA Glucose (test code = UA Negative mg/dL Glucose) [facility] AND [id number] 10:33:00 Test Item Value Reference Range Interpretation Comments UA WBC (test code = UA WBC) no gt <=5 [facility] AND [id number] 10:33:00 Test Item Value Reference Range Interpretation Comments UA Leuk Est (test Negative (06/18/16 5:33 code = UA Leuk Est) AM) [facility] AND [id number] 10:33:00 Test Item Value Reference Range Interpretation Comments UA Nitrite (test code Negative (06/18/16 5:33 = UA Nitrite) AM) [facility] AND [id number] 10:33:00 Test Item Value Reference Range Interpretation Comments UA Blood (test code = Negative (06/18/16 5:33 UA Blood) AM) [facility] AND [id number] 10:33:00 Test Item Value Reference Range Interpretation Comments UA Protein (test code = UA Negative mg/dL Protein) [facility] AND [id number] 10:33:00 Test Item Value Reference Range Interpretation Comments UA Color (test code = Light Yellow UA Color) *NA*(06/18/16 5:33 AM) [facility] AND [id number] 10:33:00 Test Item Value Reference Range Interpretation Comments UA Turbidity (test code = Clear (06/18/16 5:33 UA Turbidity) AM) [facility] [id number] 10:33:00 Test Item Value Reference Range Interpretation Comments UA pH (test code = UA pH) 5.0 5.0-8.0 [facility] [id number] 10:33:00 Test Item Value Reference Range Interpretation Comments UA Spec Grav (test code = UA Spec Grav) 1.008 [facility] AND [id number] 04:28:00 Test Item Value Reference Range Interpretation Comments UA Turbidity (test code = Clear (06/17/16 11:28 UA Turbidity) PM) [facility] AND [id number] 04:28:00 Test Item Value Reference Range Interpretation Comments UA pH (test code = UA pH) 6.0 5.0-8.0 [facility] [id number] 04:28:00 Test Item Value Reference Range Interpretation Comments UA Color (test code = Light Yellow UA Color) *NA*(06/17/16 11:28 PM) [facility] AND [id number] 04:28:00 Test Item Value Reference Range Interpretation Comments UA Spec Grav (test code = UA Spec Grav) 1.010 [facility] AND [id number] 04:28:00 Test Item Value Reference Range Interpretation Comments UA WBC (test code = 1 See_Comment [Automa jigar message] The UA WBC) system which ge nerated this result transmit jigar reference range : <=5. The reference range was not used to interpr et this result as sonido l/abnormal. [facility] AND [id number] 04:28:00 Test Item Value Reference Range Interpretation Comments UA Bacteria (test code = UA Occasional /HPF Bacteria) [facility] AND [id number] 04:28:00 Test Item Value Reference Range Interpretation Comments UA Glucose (test code = UA Negative mg/dL Glucose) [facility] AND [id number] 04:28:00 Test Item Value Reference Range Interpretation Comments UA Protein (test code = UA Negative mg/dL Protein) [facility] AND [id number] 04:28:00 Test Item Value Reference Range Interpretation Comments UA Urobilinogen (test code = UA no gt 0.1-1.0 Urobilinogen) [facility] AND [id number] 04:28:00 Test Item Value Reference Range Interpretation Comments UA Sq Epi (test code = UA Sq Epi) None Seen [facility] AND [id number] 04:28:00 Test Item Value Reference Range Interpretation Comments UA Leuk Est (test Negative (06/17/16 11:28 code = UA Leuk Est) PM) [facility] AND [id number] 04:28:00 Test Item Value Reference Range Interpretation Comments UA Nitrite (test code Negative (06/17/16 11:28 = UA Nitrite) PM) [facility] AND [id number] 04:28:00 Test Item Value Reference Range Interpretation Comments UA Blood (test code = Negative (06/17/16 11:28 UA Blood) PM) [facility] AND [id number] 04:28:00 Test Item Value Reference Range Interpretation Comments UA Bili (test code = Negative *NA*(06/17/16 UA Bili) 11:28 PM) [facility] AND [id number] 04:28:00 Test Item Value Reference Range Interpretation Comments UA Ketones (test code = UA Negative mg/dL Ketones) [facility] AND [id number] 04:28:00 Test Item Value Reference Range Interpretation Comments UA Turbidity (test code = Clear (06/17/16 11:28 UA Turbidity) PM) [facility] AND [id number] 04:28:00 Test Item Value Reference Range Interpretation Comments UA pH (test code = UA pH) 6.0 5.0-8.0 [facility] AND [id number] 04:28:00 Test Item Value Reference Range Interpretation Comments UA Color (test code = Light Yellow UA Color) *NA*(06/17/16 11:28 PM) [facility] AND [id number] 04:28:00 Test Item Value Reference Range Interpretation Comments UA Spec Grav (test code = UA Spec Grav) 1.010 [facility] AND [id number] 04:28:00 Test Item Value Reference Range Interpretation Comments UA WBC (test code = 1 See_Comment [Automa jigar message] The UA WBC) system which ge nerated this result transmit jigar reference range : <=5. The reference range was not used to interpr et this result as sonido l/abnormal. [facility] AND [id number] 04:28:00 Test Item Value Reference Range Interpretation Comments UA Bacteria (test code = UA Occasional /HPF Bacteria) [facility] AND [id number] 04:28:00 Test Item Value Reference Range Interpretation Comments UA Glucose (test code = UA Negative mg/dL Glucose) [facility] AND [id number] 04:28:00 Test Item Value Reference Range Interpretation Comments UA Protein (test code = UA Negative mg/dL Protein) [facility] AND [id number] 04:28:00 Test Item Value Reference Range Interpretation Comments UA Urobilinogen (test code = UA no gt 0.1-1.0 Urobilinogen) [facility] AND [id number] 04:28:00 Test Item Value Reference Range Interpretation Comments UA Sq Epi (test code = UA Sq Epi) None Seen [facility] AND [id number] 04:28:00 Test Item Value Reference Range Interpretation Comments UA Leuk Est (test Negative (06/17/16 11:28 code = UA Leuk Est) PM) [facility] AND [id number] 04:28:00 Test Item Value Reference Range Interpretation Comments UA Nitrite (test code Negative (06/17/16 11:28 = UA Nitrite) PM) [facility] AND [id number] 04:28:00 Test Item Value Reference Range Interpretation Comments UA Blood (test code = Negative (06/17/16 11:28 UA Blood) PM) [facility] AND [id number] 04:28:00 Test Item Value Reference Range Interpretation Comments UA Bili (test code = Negative *NA*(06/17/16 UA Bili) 11:28 PM) [facility] AND [id number] 04:28:00 Test Item Value Reference Range Interpretation Comments UA Ketones (test code = UA Negative mg/dL Ketones) [facility] AND [id number] 04:28:00 Test Item Value Reference Range Interpretation Comments UA Turbidity (test code = Clear (3/24/17 11:28 UA Turbidity) PM) [facility] AND [id number] 04:28:00 Test Item Value Reference Range Interpretation Comments UA pH (test code = UA pH) 6.0 5.0-8.0 [facility] AND [id number] 04:28:00 Test Item Value Reference Range Interpretation Comments UA Color (test code = Light Yellow UA Color) *NA*(06/17/16 11:28 PM) [facility] AND [id number] 04:28:00 Test Item Value Reference Range Interpretation Comments UA Spec Grav (test code = UA Spec Grav) 1.010 [facility] AND [id number] 04:28:00 Test Item Value Reference Range Interpretation Comments UA WBC (test code = 1 See_Comment [Automa jigar message] The UA WBC) system which ge nerated this result transmit jigar reference range : <=5. The reference range was not used to interpr et this result as sonido l/abnormal. [facility] AND [id number] 04:28:00 Test Item Value Reference Range Interpretation Comments UA Bacteria (test code = UA Occasional /HPF Bacteria) [facility] AND [id number] 04:28:00 Test Item Value Reference Range Interpretation Comments UA Glucose (test code = UA Negative mg/dL Glucose) [facility] AND [id number] 04:28:00 Test Item Value Reference Range Interpretation Comments UA Protein (test code = UA Negative mg/dL Protein) [facility] AND [id number] 04:28:00 Test Item Value Reference Range Interpretation Comments UA Urobilinogen (test code = UA no gt 0.1-1.0 Urobilinogen) [facility] AND [id number] 04:28:00 Test Item Value Reference Range Interpretation Comments UA Sq Epi (test code = UA Sq Epi) None Seen [facility] AND [id number] 04:28:00 Test Item Value Reference Range Interpretation Comments UA Leuk Est (test Negative (06/17/16 11:28 code = UA Leuk Est) PM) [facility] AND [id number] 04:28:00 Test Item Value Reference Range Interpretation Comments UA Nitrite (test code Negative (06/17/16 11:28 = UA Nitrite) PM) [facility] AND [id number] 04:28:00 Test Item Value Reference Range Interpretation Comments UA Blood (test code = Negative (06/17/16 11:28 UA Blood) PM) [facility] AND [id number] 04:28:00 Test Item Value Reference Range Interpretation Comments UA Bili (test code = Negative *NA*(06/17/16 UA Bili) 11:28 PM) [facility] AND [id number] 04:28:00 Test Item Value Reference Range Interpretation Comments UA Ketones (test code = UA Negative mg/dL Ketones) [facility] AND [id number] 04:28:00 Test Item Value Reference Range Interpretation Comments UA Turbidity (test code = Clear (06/17/16 11:28 UA Turbidity) PM) [facility] AND [id number] 04:28:00 Test Item Value Reference Range Interpretation Comments UA pH (test code = UA pH) 6.0 5.0-8.0 [facility] AND [id number] 04:28:00 Test Item Value Reference Range Interpretation Comments UA Color (test code = Light Yellow UA Color) *NA*(06/17/16 11:28 PM) [facility] AND [id number] 04:28:00 Test Item Value Reference Range Interpretation Comments UA Spec Grav (test code = UA Spec Grav) 1.010 [facility] AND [id number] 04:28:00 Test Item Value Reference Range Interpretation Comments UA WBC (test code = UA WBC) 1 <=5 [facility] AND [id number] 04:28:00 Test Item Value Reference Range Interpretation Comments UA Bacteria (test code = UA Occasional /HPF Bacteria) [facility] AND [id number] 04:28:00 Test Item Value Reference Range Interpretation Comments UA Glucose (test code = UA Negative mg/dL Glucose) [facility] AND [id number] 04:28:00 Test Item Value Reference Range Interpretation Comments UA Protein (test code = UA Negative mg/dL Protein) [facility] AND [id number] 04:28:00 Test Item Value Reference Range Interpretation Comments UA Urobilinogen (test code = UA no gt 0.1-1.0 Urobilinogen) [facility] [id number] 04:28:00 Test Item Value Reference Range Interpretation Comments UA Sq Epi (test code = UA Sq Epi) None Seen [facility] AND [id number] 04:28:00 Test Item Value Reference Range Interpretation Comments UA Leuk Est (test Negative (06/17/16 11:28 code = UA Leuk Est) PM) [facility] [id number] 04:28:00 Test Item Value Reference Range Interpretation Comments UA Nitrite (test code Negative (06/17/16 11:28 = UA Nitrite) PM) [facility] AND [id number] 04:28:00 Test Item Value Reference Range Interpretation Comments UA Blood (test code = Negative (06/17/16 11:28 UA Blood) PM) [facility] AND [id number] 04:28:00 Test Item Value Reference Range Interpretation Comments UA Bili (test code = Negative *NA*(06/17/16 UA Bili) 11:28 PM) [facility] AND [id number] 04:28:00 Test Item Value Reference Range Interpretation Comments UA Ketones (test code = UA Negative mg/dL Ketones) [facility] AND [id number] 04:28:00 Test Item Value Reference Range Interpretation Comments UA Turbidity (test code = Clear (06/17/16 11:28 UA Turbidity) PM) [facility] AND [id number] 04:28:00 Test Item Value Reference Range Interpretation Comments UA pH (test code = UA pH) 6.0 5.0-8.0 [facility] AND [id number] 04:28:00 Test Item Value Reference Range Interpretation Comments UA Color (test code = Light Yellow UA Color) *NA*(06/17/16 11:28 PM) [facility] [id number] 04:28:00 Test Item Value Reference Range Interpretation Comments UA Spec Grav (test code = UA Spec Grav) 1.010 [facility] [id number] 04:28:00 Test Item Value Reference Range Interpretation Comments UA WBC (test code = UA WBC) 1 <=5 [facility] [id number] 04:28:00 Test Item Value Reference Range Interpretation Comments UA Bacteria (test code = UA Occasional /HPF Bacteria) [facility] AND [id number] 04:28:00 Test Item Value Reference Range Interpretation Comments UA Glucose (test code = UA Negative mg/dL Glucose) [facility] AND [id number] 04:28:00 Test Item Value Reference Range Interpretation Comments UA Protein (test code = UA Negative mg/dL Protein) [facility] AND [id number] 04:28:00 Test Item Value Reference Range Interpretation Comments UA Urobilinogen (test code = UA no gt 0.1-1.0 Urobilinogen) [facility] AND [id number] 04:28:00 Test Item Value Reference Range Interpretation Comments UA Sq Epi (test code = UA Sq Epi) None Seen [facility] AND [id number] 04:28:00 Test Item Value Reference Range Interpretation Comments UA Leuk Est (test Negative (06/17/16 11:28 code = UA Leuk Est) PM) [facility] AND [id number] 04:28:00 Test Item Value Reference Range Interpretation Comments UA Nitrite (test code Negative (06/17/16 11:28 = UA Nitrite) PM) [facility] AND [id number] 04:28:00 Test Item Value Reference Range Interpretation Comments UA Blood (test code = Negative (06/17/16 11:28 UA Blood) PM) [facility] AND [id number] 04:28:00 Test Item Value Reference Range Interpretation Comments UA Bili (test code = Negative *NA*(06/17/16 UA Bili) 11:28 PM) [facility] AND [id number] 04:28:00 Test Item Value Reference Range Interpretation Comments UA Ketones (test code = UA Negative mg/dL Ketones) [facility] AND [id number] 04:28:00 Test Item Value Reference Range Interpretation Comments UA Turbidity (test code = Clear (06/17/16 11:28 UA Turbidity) PM) [facility] AND [id number] 04:28:00 Test Item Value Reference Range Interpretation Comments UA pH (test code = UA pH) 6.0 5.0-8.0 [facility] AND [id number] 04:28:00 Test Item Value Reference Range Interpretation Comments UA Color (test code = Light Yellow UA Color) *NA*(06/17/16 11:28 PM) [facility] AND [id number] 04:28:00 Test Item Value Reference Range Interpretation Comments UA Spec Grav (test code = UA Spec Grav) 1.010 [facility] AND [id number] 04:28:00 Test Item Value Reference Range Interpretation Comments UA WBC (test code = UA WBC) 1 <=5 [facility] AND [id number] 04:28:00 Test Item Value Reference Range Interpretation Comments UA Bacteria (test code = UA Occasional /HPF Bacteria) [facility] AND [id number] 04:28:00 Test Item Value Reference Range Interpretation Comments UA Glucose (test code = UA Negative mg/dL Glucose) [facility] AND [id number] 04:28:00 Test Item Value Reference Range Interpretation Comments UA Protein (test code = UA Negative mg/dL Protein) [facility] AND [id number] 04:28:00 Test Item Value Reference Range Interpretation Comments UA Urobilinogen (test code = UA no gt 0.1-1.0 Urobilinogen) [facility] AND [id number] 04:28:00 Test Item Value Reference Range Interpretation Comments UA Sq Epi (test code = UA Sq Epi) None Seen [facility] AND [id number] 04:28:00 Test Item Value Reference Range Interpretation Comments UA Leuk Est (test Negative (06/17/16 11:28 code = UA Leuk Est) PM) [facility] AND [id number] 04:28:00 Test Item Value Reference Range Interpretation Comments UA Nitrite (test code Negative (06/17/16 11:28 = UA Nitrite) PM) [facility] AND [id number] 04:28:00 Test Item Value Reference Range Interpretation Comments UA Blood (test code = Negative (06/17/16 11:28 UA Blood) PM) [facility] AND [id number] 04:28:00 Test Item Value Reference Range Interpretation Comments UA Bili (test code = Negative *NA*(06/17/16 UA Bili) 11:28 PM) [facility] AND [id number] 04:28:00 Test Item Value Reference Range Interpretation Comments UA Ketones (test code = UA Negative mg/dL Ketones) [facility] AND [id number] 04:28:00 Test Item Value Reference Range Interpretation Comments UA Turbidity (test code = Clear (06/17/16 11:28 UA Turbidity) PM) [facility] AND [id number] 04:28:00 Test Item Value Reference Range Interpretation Comments UA pH (test code = UA pH) 6.0 5.0-8.0 [facility] AND [id number] 04:28:00 Test Item Value Reference Range Interpretation Comments UA Color (test code = Light Yellow UA Color) *NA*(06/17/16 11:28 PM) [facility] AND [id number] 04:28:00 Test Item Value Reference Range Interpretation Comments UA Spec Grav (test code = UA Spec Grav) 1.010 [facility] AND [id number] 04:28:00 Test Item Value Reference Range Interpretation Comments UA WBC (test code = UA WBC) 1 <=5 [facility] AND [id number] 04:28:00 Test Item Value Reference Range Interpretation Comments UA Bacteria (test code = UA Occasional /HPF Bacteria) [facility] AND [id number] 04:28:00 Test Item Value Reference Range Interpretation Comments UA Glucose (test code = UA Negative mg/dL Glucose) [facility] AND [id number] 04:28:00 Test Item Value Reference Range Interpretation Comments UA Protein (test code = UA Negative mg/dL Protein) [facility] AND [id number] 04:28:00 Test Item Value Reference Range Interpretation Comments UA Urobilinogen (test code = UA no gt 0.1-1.0 Urobilinogen) [facility] AND [id number] 04:28:00 Test Item Value Reference Range Interpretation Comments UA Sq Epi (test code = UA Sq Epi) None Seen [facility] AND [id number] 04:28:00 Test Item Value Reference Range Interpretation Comments UA Leuk Est (test Negative (06/17/16 11:28 code = UA Leuk Est) PM) [facility] AND [id number] 04:28:00 Test Item Value Reference Range Interpretation Comments UA Nitrite (test code Negative (06/17/16 11:28 = UA Nitrite) PM) [facility] AND [id number] 04:28:00 Test Item Value Reference Range Interpretation Comments UA Blood (test code = Negative (06/17/16 11:28 UA Blood) PM) [facility] AND [id number] 04:28:00 Test Item Value Reference Range Interpretation Comments UA Bili (test code = Negative *NA*(06/17/16 UA Bili) 11:28 PM) [facility] AND [id number] 04:28:00 Test Item Value Reference Range Interpretation Comments UA Ketones (test code = UA Negative mg/dL Ketones) [id number] 09:20:00 Test Item Value Reference Range Interpretation Comments CHD Risk (test code = CHD Risk) 4.26 4.00-7.30 [id number] 09:20:00 Test Item Value Reference Range Interpretation Comments VLDL (test code = VLDL) 22 [facility] [id number] 09:20:00 Test Item Value Reference Range Interpretation Comments LDL (Calculated) (test code = LDL 118 (Calculated)) [facility] [id number] 09:20:00 Test Item Value Reference Range Interpretation Comments HDL (test code = HDL) 43 [facility] [id number] 09:20:00 Test Item Value Reference Range Interpretation Comments Chol (test code = Chol) 183 [facility] [id number] 09:20:00 Test Item Value Reference Range Interpretation Comments Trig (test code = Trig) 112 [facility] [id number] 09:20:00 Test Item Value Reference Range Interpretation Comments CHD Risk (test code = CHD Risk) 4.26 4.00-7.30 [facility] [id number] 09:20:00 Test Item Value Reference Range Interpretation Comments VLDL (test code = VLDL) 22 [facility] [id number] 09:20:00 Test Item Value Reference Range Interpretation Comments LDL (Calculated) (test code = LDL 118 (Calculated)) [facility] [id number] 09:20:00 Test Item Value Reference Range Interpretation Comments HDL (test code = HDL) 43 [facility] [id number] 09:20:00 Test Item Value Reference Range Interpretation Comments Chol (test code = Chol) 183 [facility] [id number] 09:20:00 Test Item Value Reference Range Interpretation Comments Trig (test code = Trig) 112 [facility] [id number] 09:20:00 Test Item Value Reference Range Interpretation Comments CHD Risk (test code = CHD Risk) 4.26 4.00-7.30 [facility] [id number] 09:20:00 Test Item Value Reference Range Interpretation Comments VLDL (test code = VLDL) 22 [facility] [id number] 09:20:00 Test Item Value Reference Range Interpretation Comments LDL (Calculated) (test code = LDL 118 (Calculated)) [facility] [id number] 09:20:00 Test Item Value Reference Range Interpretation Comments HDL (test code = HDL) 43 [facility] [id number] 09:20:00 Test Item Value Reference Range Interpretation Comments Chol (test code = Chol) 183 [facility] [id number] 09:20:00 Test Item Value Reference Range Interpretation Comments Trig (test code = Trig) 112 [facility] [id number] 09:20:00 Test Item Value Reference Range Interpretation Comments CHD Risk (test code = CHD Risk) 4.26 4.00-7.30 [facility] [id number] 09:20:00 Test Item Value Reference Range Interpretation Comments VLDL (test code = VLDL) 22 [facility] [id number] 09:20:00 Test Item Value Reference Range Interpretation Comments LDL (Calculated) (test code = LDL 118 (Calculated)) [facility] HospitalDdnudcqJPOZHD3515-16-31 09:20:00 Test Item Value Reference Range Interpretation Comments HDL (test code = HDL) 43 [facility] [id number] 09:20:00 Test Item Value Reference Range Interpretation Comments Chol (test code = Chol) 183 [facility] [id number] 09:20:00 Test Item Value Reference Range Interpretation Comments Trig (test code = Trig) 112 [facility] [id number] 09:20:00 Test Item Value Reference Range Interpretation Comments CHD Risk (test code = CHD Risk) 4.26 4.00-7.30 [place] [address]-03-23 09:20:00 Test Item Value Reference Range Interpretation Comments VLDL (test code = VLDL) 22 [place] [address]-03-23 09:20:00 Test Item Value Reference Range Interpretation Comments LDL (Calculated) (test code = LDL 118 (Calculated)) [place] [address]-03-23 09:20:00 Test Item Value Reference Range Interpretation Comments HDL (test code = HDL) 43 [place] [address]-03-23 09:20:00 Test Item Value Reference Range Interpretation Comments Chol (test code = Chol) 183 [facility] [id number] 09:20:00 Test Item Value Reference Range Interpretation Comments Trig (test code = Trig) 112 [facility] [id number] 09:20:00 Test Item Value Reference Range Interpretation Comments CHD Risk (test code = CHD Risk) 4.26 4.00-7.30 [facility] Ho[id number] 09:20:00 Test Item Value Reference Range Interpretation Comments VLDL (test code = VLDL) 22 [facility] [id number] 09:20:00 Test Item Value Reference Range Interpretation Comments LDL (Calculated) (test code = LDL 118 (Calculated)) [facility] [id number] 09:20:00 Test Item Value Reference Range Interpretation Comments HDL (test code = HDL) 43 [facility] HospitalXkfcmwjFCVQQH3287-30-10 09:20:00 Test Item Value Reference Range Interpretation Comments Chol (test code = Chol) 183 [facility] [id number] 09:20:00 Test Item Value Reference Range Interpretation Comments Trig (test code = Trig) 112 [facility] [id number] 09:20:00 Test Item Value Reference Range Interpretation Comments CHD Risk (test code = CHD Risk) 4.26 4.00-7.30 [place] [address]-03-23 09:20:00 Test Item Value Reference Range Interpretation Comments VLDL (test code = VLDL) 22 [place] [address]-03-23 09:20:00 Test Item Value Reference Range Interpretation Comments LDL (Calculated) (test code = LDL 118 (Calculated)) [facility] [id number] 09:20:00 Test Item Value Reference Range Interpretation Comments HDL (test code = HDL) 43 [id number] 09:20:00 Test Item Value Reference Range Interpretation Comments Chol (test code = Chol) 183 [facility] [id number] 09:20:00 Test Item Value Reference Range Interpretation Comments Trig (test code = Trig) 112 [facility] ClinicsPhobiousCARDIAC [id number] 00:19:00 Test Item Value Reference Range Interpretation Comments Total CK (test code = Total CK) 384 12191 [facility] HospitalCARZipwhipAC [id number] 00:19:00 Test Item Value Reference Range Interpretation Comments Troponin-I (test code 7.44 See_Comment [Auto mated message] The = Troponin-I) system which g enerated this result transmit jigar reference range : <=0.40. The reference r [place] was not used to interpr et this result as sonido l/abnormal. [facility] ClinicsPhobiousCARZipwhipAC [id number] 00:19:00 Test Item Value Reference Range Interpretation Comments CK MB Index (test 4.4 See_Comment [Automate d message] The code = CK MB Index) system w [facility] generated this result transmit jigar reference range : <=2.5. The reference range was not used to interpr et this result as sonido l/abnormal. [facility] ClinicsOneFineMealAC [id number] 00:19:00 Test Item Value Reference Range Interpretation Comments CK MB (test code = CK MB) 17.0 0.5-3.6 [facility] ClinicsOneFineMealAC [id number] 00:19:00 Test Item Value Reference Range Interpretation Comments Total CK (test code = Total CK) 384 12191 [facility] HospitalCARZipwhipAC [id number] 00:19:00 Test Item Value Reference Range Interpretation Comments Troponin-I (test code 7.44 See_Comment [Auto mated message] The = Troponin-I) system which g enerated this result transmit jigar reference range : <=0.40. The reference r [place] was not used to interpr et this result as sonido l/abnormal. [facility] ClinicsPhobiousCARDIAC [id number] 00:19:00 Test Item Value Reference Range Interpretation Comments CK MB Index (test 4.4 See_Comment [Automate d message] The code = CK MB Index) system w [employer] generated this result transmit jigar reference range : <=2.5. The reference range was not used to interpr et this result as sonido l/abnormal. [facility]annCARDIAC [id number] 00:19:00 Test Item Value Reference Range Interpretation Comments CK MB (test code = CK MB) 17.0 0.5-3.6 [facility] [id number] 00:19:00 Test Item Value Reference Range Interpretation Comments Total CK (test code = Total CK) 384 12-191 [facility])annCARDIAC [id number] 00:19:00 Test Item Value Reference Range Interpretation Comments Troponin-I (test code 7.44 See_Comment [Auto mated message] The = Troponin-I) system which g enerated this result transmit jigar reference range : <=0.40. The reference r [place] was not used to interpr et this result as sonido l/abnormal. [facility] [employer]CARDIAC [id number] 00:19:00 Test Item Value Reference Range Interpretation Comments CK MB Index (test 4.4 See_Comment [Automate d message] The code = CK MB Index) system w [employer] generated this result transmit jigar reference range : <=2.5. The reference range was not used to interpr et this result as sonido l/abnormal. [facility])annCARDIAC [id number] 00:19:00 Test Item Value Reference Range Interpretation Comments CK MB (test code = CK MB) 17.0 0.5-3.6 [facility])annCARDIAC [id number] 00:19:00 Test Item Value Reference Range Interpretation Comments Total CK (test code = Total CK) 384 12-191 [facility])annCARDIAC [id number] 00:19:00 Test Item Value Reference Range Interpretation Comments Troponin-I (test code = Troponin-I) 7.44 <=0.40 [facility] HermannCARDIAC [id number] 00:19:00 Test Item Value Reference Range Interpretation Comments CK MB Index (test code = CK MB Index) 4.4 <=2.5 [facility])annCARDIAC [id number] 00:19:00 Test Item Value Reference Range Interpretation Comments CK MB (test code = CK MB) 17.0 0.5-3.6 [facility])annSwipeStationAC [id number] 00:19:00 Test Item Value Reference Range Interpretation Comments Total CK (test code = Total CK) 384 12-191 [facility] [employer] [id number] 00:19:00 Test Item Value Reference Range Interpretation Comments Troponin-I (test code = Troponin-I) 7.44 <=0.40 [facility] [employer] [id number] 00:19:00 Test Item Value Reference Range Interpretation Comments CK MB Index (test code = CK MB Index) 4.4 <=2.5 [facility] [employer]AC [id number] 00:19:00 Test Item Value Reference Range Interpretation Comments CK MB (test code = CK MB) 17.0 0.5-3.6 [facility] [employer]AC [id number] 00:19:00 Test Item Value Reference Range Interpretation Comments Total CK (test code = Total CK) 384 12-191 [facility] [employer] [id number] 00:19:00 Test Item Value Reference Range Interpretation Comments Troponin-I (test code = Troponin-I) 7.44 <=0.40 [facility] [employer] [id number] 00:19:00 Test Item Value Reference Range Interpretation Comments CK MB Index (test code = CK MB Index) 4.4 <=2.5 [facility] [employer] [id number] 00:19:00 Test Item Value Reference Range Interpretation Comments CK MB (test code = CK MB) 17.0 0.5-3.6 [facility] [employer] [id number] 00:19:00 Test Item Value Reference Range Interpretation Comments Total CK (test code = Total CK) 384 12-191 [facility] [employer] [id number] 00:19:00 Test Item Value Reference Range Interpretation Comments Troponin-I (test code = Troponin-I) 7.44 <=0.40 [facility]annSwipeStationAC [id number] 00:19:00 Test Item Value Reference Range Interpretation Comments CK MB Index (test code = CK MB Index) 4.4 <=2.5 [facility] [employer] [id number] 00:19:00 Test Item Value Reference Range Interpretation Comments CK MB (test code = CK MB) 17.0 0.5-3.6 [facility] HermannCARDIAC [id number] 19:58:00 Test Item Value Reference Range Interpretation Comments CK MB Index (test 4.8 See_Comment [Automate d message] The code = CK MB Index) system w [employer] generated this result transmit jigar reference range : <=2.5. The reference range was not used to interpr et this result as sonido l/abnormal. [facility])annCARDIAC [id number] 19:58:00 Test Item Value Reference Range Interpretation Comments Total CK (test code = Total CK) 412 [facility] [employer]AC [id number] 19:58:00 Test Item Value Reference Range Interpretation Comments CK MB (test code = CK MB) 19.8 0.5-3.6 [facility])annCARDIAC [id number] 19:58:00 Test Item Value Reference Range Interpretation Comments CK MB Index (test 4.8 See_Comment [Automate d message] The code = CK MB Index) system [employer] generated this result transmit jigar reference range : <=2.5. The reference range was not used to interpr et this result as sonido l/abnormal. [facility] [employer] [id number] 19:58:00 Test Item Value Reference Range Interpretation Comments Total CK (test code = Total CK) 412 [facility] [employer]AC [id number] 19:58:00 Test Item Value Reference Range Interpretation Comments CK MB (test code = CK MB) 19.8 0.5-3.6 [facility]annCARZipwhipAC [id number] 19:58:00 Test Item Value Reference Range Interpretation Comments CK MB Index (test 4.8 See_Comment [Automate d message] The code = CK MB Index) system [employer] generated this result transmit jigar reference range : <=2.5. The reference range was not used to interpr et this result as sonido l/abnormal. [facility]annCambridge WirelessDIAC [id number] 19:58:00 Test Item Value Reference Range Interpretation Comments Total CK (test code = Total CK) 412 [facility] [employer] [id number] 19:58:00 Test Item Value Reference Range Interpretation Comments CK MB (test code = CK MB) 19.8 0.5-3.6 [facility] HermannCARDIAC [id number] 19:58:00 Test Item Value Reference Range Interpretation Comments CK MB Index (test code = CK MB Index) 4.8 <=2.5 [facility])annCARZipwhipAC [id number] 19:58:00 Test Item Value Reference Range Interpretation Comments Total CK (test code = Total CK) 412 [facility] [employer] [id number] 19:58:00 Test Item Value Reference Range Interpretation Comments CK MB (test code = CK MB) 19.8 0.5-3.6 [facility])annCARDIAC [id number] 19:58:00 Test Item Value Reference Range Interpretation Comments CK MB Index (test code = CK MB Index) 4.8 <=2.5 [facility] (NIH)annSwipeStationAC [id number] 19:58:00 Test Item Value Reference Range Interpretation Comments Total CK (test code = Total CK) 412 [facility] [employer] [id number] 19:58:00 Test Item Value Reference Range Interpretation Comments CK MB (test code = CK MB) 19.8 0.5-3.6 [facility] of [facility] (NIH)annCARZipwhipAC [id number] 19:58:00 Test Item Value Reference Range Interpretation Comments CK MB Index (test code = CK MB Index) 4.8 <=2.5 [facility] (NIH)annSwipeStationAC [id number] 19:58:00 Test Item Value Reference Range Interpretation Comments Total CK (test code = Total CK) 412 [facility] [employer] [id number] 19:58:00 Test Item Value Reference Range Interpretation Comments CK MB (test code = CK MB) 19.8 0.5-3.6 [facility] (NIH)annSwipeStationAC [id number] 19:58:00 Test Item Value Reference Range Interpretation Comments CK MB Index (test code = CK MB Index) 4.8 <=2.5 [facility] (NIH)annSwipeStationAC [id number] 19:58:00 Test Item Value Reference Range Interpretation Comments Total CK (test code = Total CK) 412 12-191 [facility] AppboyCARDIAC [id number] 19:58:00 Test Item Value Reference Range Interpretation Comments CK MB (test code = CK MB) 19.8 0.5-3.6 [facility] (NIH)annCARDIAC [id number] 19:56:00 Test Item Value Reference Range Interpretation Comments Troponin-I (test code 6.52 See_Comment [Auto mated message] The = Troponin-I) system which g enerated this result transmit jigar reference range : <=0.40. The reference r [place] was not used to interpr et this result as sonido l/abnormal. [facility] [employer] [id number] 19:56:00 Test Item Value Reference Range Interpretation Comments Globulin (test code = Globulin) 3.7 2.7-4.2 [facility] [employer] [id number] 19:56:00 Test Item Value Reference Range Interpretation Comments A/G Ratio (test code = A/G Ratio) 0.9 0.7-1.6 [facility] [employer] [id number] 19:56:00 Test Item Value Reference Range Interpretation Comments B/C Ratio (test code = B/C Ratio) 19 6-25 [facility] [employer] [id number] 19:56:00 Test Item Value Reference Range Interpretation Comments Bili Total (test code = Bili Total) 0.5 0.2-1.3 [facility] [employer] [id number] 19:56:00 Test Item Value Reference Range Interpretation Comments Albumin Lvl (test code = Albumin Lvl) 3.3 3.5-5.0 [facility] [employer] [id number] 19:56:00 Test Item Value Reference Range Interpretation Comments Total Protein (test code = Total 7.0 6.4-8.4 Protein) [facility] [employer] [id number] 19:56:00 Test Item Value Reference Range Interpretation Comments Alk Phos (test code = Alk Phos) 68 39-136 [facility] [employer] [id number] 19:56:00 Test Item Value Reference Range Interpretation Comments AST (test code = AST) 51 See_Comment [Auto mated message] The system which ge nerated this result transmit jigar reference range : <=37. The reference range was not used to interpr et this result as sonido l/abnormal. [facility] ([facility]H)annCHEM [id number] 19:56:00 Test Item Value Reference Range Interpretation Comments ALT (test code = ALT) 44 See_Comment [Auto mated message] The system which ge nerated this result transmit jigar reference range : <=65. The reference range was not used to interpr et this result as sonido l/abnormal. [facility] [id number] 19:56:00 Test Item Value Reference Range Interpretation Comments U Cannab Scr (test Negative *NA*(06/15/16 code = U Cannab Scr) 2:56 PM) [facility] [id number] 19:56:00 Test Item Value Reference Range Interpretation Comments U Phencyc Scr (test Negative *NA*(06/15/16 code = U Phencyc Scr) 2:56 PM) [facility] [id number] 19:56:00 Test Item Value Reference Range Interpretation Comments U Opiate Scr (test Negative *NA*(06/15/16 code = U Opiate Scr) 2:56 PM) [facility] [id number] 19:56:00 Test Item Value Reference Range Interpretation Comments U Cocaine Scr (test Negative *NA*(06/15/16 code = U Cocaine Scr) 2:56 PM) [facility] [id number] 19:56:00 Test Item Value Reference Range Interpretation Comments U Benzodia Scr (test Negative *NA*(06/15/16 code = U Benzodia Scr) 2:56 PM) [facility] [id number] 19:56:00 Test Item Value Reference Range Interpretation Comments U Amph Scr (test code Negative *NA*(06/15/16 = U Amph Scr) 2:56 PM) [facility] [id number] 19:56:00 Test Item Value Reference Range Interpretation Comments U Elsy Scr (test code Negative *NA*(06/15/16 = U Elsy Scr) 2:56 PM) [facility] [id number] 19:56:00 Test Item Value Reference Range Interpretation Comments UDS Note (test code = See Note (06/15/16 2:56 UDS Note) PM) [facility] [id number] 19:56:00 Test Item Value Reference Range Interpretation Comments Hep Bs Ag (test code Negative *NA*(06/15/16 = Hep Bs Ag) 2:56 PM) [facility] [id number] 19:56:00 Test Item Value Reference Range Interpretation Comments Hep B Core IgM (test Negative *NA*(06/15/16 code = Hep B Core 2:56 PM) IgM) [facility] [id number] 19:56:00 Test Item Value Reference Range Interpretation Comments Hep C Ab (test code = Positive *ABN*(06/15/16 Hep C Ab) 2:56 PM) [facility] [id number] 19:56:00 Test Item Value Reference Range Interpretation Comments Hep A IgM (test code Negative *NA*(06/15/16 = Hep A IgM) 2:56 PM) [facility] [id number] 19:56:00 Test Item Value Reference Range Interpretation Comments Hgb A1C (test code = Hgb A1C) 6.6 [facility] [id number] 19:56:00 Test Item Value Reference Range Interpretation Comments UA pH (test code = UA pH) 5.5 1 5.0-8.0 [facility] [id number] 19:56:00 Test Item Value Reference Range Interpretation Comments UA Spec Grav (test code = UA Spec 1.020 1 Grav) [facility] AND [id number] 19:56:00 Test Item Value Reference Range Interpretation Comments UA Protein (test code Negative (06/15/16 2:56 = UA Protein) PM) [facility] [id number] 19:56:00 Test Item Value Reference Range Interpretation Comments UA Turbidity (test code = Clear (06/15/16 2:56 UA Turbidity) PM) [facility] [id number] 19:56:00 Test Item Value Reference Range Interpretation Comments UA Leuk Est (test Negative (06/15/16 2:56 code = UA Leuk Est) PM) [facility] [id number] 19:56:00 Test Item Value Reference Range Interpretation Comments Micro? (test code = Not Indicated (06/15/16 Micro?) 2:56 PM) [facility] [id number] 19:56:00 Test Item Value Reference Range Interpretation Comments UA Glucose (test code Negative (06/15/16 2:56 = UA Glucose) PM) [facility] [id number] 19:56:00 Test Item Value Reference Range Interpretation Comments UA Bili (test code = Negative *NA*(06/15/16 UA Bili) 2:56 PM) [facility] [id number] 19:56:00 Test Item Value Reference Range Interpretation Comments UA Ketones (test code Negative *NA*(06/15/16 = UA Ketones) 2:56 PM) [facility] [id number] 19:56:00 Test Item Value Reference Range Interpretation Comments UA Blood (test code = Negative (06/15/16 2:56 UA Blood) PM) [facility] [id number] 19:56:00 Test Item Value Reference Range Interpretation Comments UA Nitrite (test code Negative (06/15/16 2:56 = UA Nitrite) PM) [facility] [id number] 19:56:00 Test Item Value Reference Range Interpretation Comments UA Urobilinogen (test code = UA 0.2 0.1-1.0 Urobilinogen) [facility] [id number] 19:56:00 Test Item Value Reference Range Interpretation Comments UA Color (test code = Yellow *NA*(06/15/16 UA Color) 2:56 PM) [facility] [id number] 19:56:00 Test Item Value Reference Range Interpretation Comments Troponin-I (test code 6.52 See_Comment [Auto mated message] The = Troponin-I) system which g enerated this result transmit jigar reference range : <=0.40. The reference r [place] was not used to interpr et this result as sonido l/abnormal. [facility] ([facility]H)annCHEM [id number] 19:56:00 Test Item Value Reference Range Interpretation Comments Globulin (test code = Globulin) 3.7 2.7-4.2 [facility] [id number] 19:56:00 Test Item Value Reference Range Interpretation Comments A/G Ratio (test code = A/G Ratio) 0.9 0.7-1.6 [facility]ann[facility] [id number] 19:56:00 Test Item Value Reference Range Interpretation Comments B/C Ratio (test code = B/C Ratio) 19 6-25 [facility]icsPhlex[facility] [id number] 19:56:00 Test Item Value Reference Range Interpretation Comments Bili Total (test code = Bili Total) 0.5 0.2-1.3 [facility]2017-03-22 19:56:00 Test Item Value Reference Range Interpretation Comments Albumin Lvl (test code = Albumin Lvl) 3.3 3.5-5.0 [facility]ics[facility] [id number] 19:56:00 Test Item Value Reference Range Interpretation Comments Total Protein (test code = Total 7.0 6.4-8.4 Protein) [facility] [id number] 19:56:00 Test Item Value Reference Range Interpretation Comments Alk Phos (test code = Alk Phos) 68 39-136 [facility]icsPh[facility] [id number] 19:56:00 Test Item Value Reference Range Interpretation Comments AST (test code = AST) 51 See_Comment [Auto mated message] The system which ge nerated this result transmit jigar reference range : <=37. The reference range was not used to interpr et this result as sonido l/abnormal. [facility]ics[facility] [id number] 19:56:00 Test Item Value Reference Range Interpretation Comments ALT (test code = ALT) 44 See_Comment [Auto mated message] The system which ge nerated this result transmit jigar reference range : <=65. The reference range was not used to interpr et this result as sonido l/abnormal. [facility]icsPen[facility] P[facility] [id number] 19:56:00 Test Item Value Reference Range Interpretation Comments U Cannab Scr (test Negative *NA*(06/15/16 code = U Cannab Scr) 2:56 PM) [facility] [id number] 19:56:00 Test Item Value Reference Range Interpretation Comments U Phencyc Scr (test Negative *NA*(06/15/16 code = U Phencyc Scr) 2:56 PM) [facility] [id number] 19:56:00 Test Item Value Reference Range Interpretation Comments U Opiate Scr (test Negative *NA*(06/15/16 code = U Opiate Scr) 2:56 PM) [facility] [id number] 19:56:00 Test Item Value Reference Range Interpretation Comments U Cocaine Scr (test Negative *NA*(06/15/16 code = U Cocaine Scr) 2:56 PM) [facility] [id number] 19:56:00 Test Item Value Reference Range Interpretation Comments U Benzodia Scr (test Negative *NA*(06/15/16 code = U Benzodia Scr) 2:56 PM) [facility] [id number] 19:56:00 Test Item Value Reference Range Interpretation Comments U Amph Scr (test code Negative *NA*(06/15/16 = U Amph Scr) 2:56 PM) [facility] [id number] 19:56:00 Test Item Value Reference Range Interpretation Comments U Elsy Scr (test code Negative *NA*(06/15/16 = U Elsy Scr) 2:56 PM) [facility] [id number] 19:56:00 Test Item Value Reference Range Interpretation Comments UDS Note (test code = See Note (06/15/16 2:56 UDS Note) PM) [facility] [id number] 19:56:00 Test Item Value Reference Range Interpretation Comments Hep Bs Ag (test code Negative *NA*(06/15/16 = Hep Bs Ag) 2:56 PM) [id number] 19:56:00 Test Item Value Reference Range Interpretation Comments Hep B Core IgM (test Negative *NA*(06/15/16 code = Hep B Core 2:56 PM) IgM) [facility] [id number] 19:56:00 Test Item Value Reference Range Interpretation Comments Hep C Ab (test code = Positive *ABN*(06/15/16 Hep C Ab) 2:56 PM) [facility] [id number] 19:56:00 Test Item Value Reference Range Interpretation Comments Hep A IgM (test code Negative *NA*(06/15/16 = Hep A IgM) 2:56 PM) [facility]icsannSPECIAL [id number] 19:56:00 Test Item Value Reference Range Interpretation Comments Hgb A1C (test code = Hgb A1C) 6.6 [facility]ann[facility] AND [id number] 19:56:00 Test Item Value Reference Range Interpretation Comments UA pH (test code = UA pH) 5.5 1 5.0-8.0 [facility] AND [id number] 19:56:00 Test Item Value Reference Range Interpretation Comments UA Spec Grav (test code = UA Spec 1.020 1 Grav) [facility] AND [id number] 19:56:00 Test Item Value Reference Range Interpretation Comments UA Protein (test code Negative (06/15/16 2:56 = UA Protein) PM) [facility] AND [id number] 19:56:00 Test Item Value Reference Range Interpretation Comments UA Turbidity (test code = Clear (06/15/16 2:56 UA Turbidity) PM) [facility] AND [id number] 19:56:00 Test Item Value Reference Range Interpretation Comments UA Leuk Est (test Negative (06/15/16 2:56 code = UA Leuk Est) PM) [facility] AND [id number] 19:56:00 Test Item Value Reference Range Interpretation Comments Micro? (test code = Not Indicated (06/15/16 Micro?) 2:56 PM) [facility] AND [id number] 19:56:00 Test Item Value Reference Range Interpretation Comments UA Glucose (test code Negative (06/15/16 2:56 = UA Glucose) PM) [facility] AND [id number] 19:56:00 Test Item Value Reference Range Interpretation Comments UA Bili (test code = Negative *NA*(06/15/16 UA Bili) 2:56 PM) [facility] AND [id number] 19:56:00 Test Item Value Reference Range Interpretation Comments UA Ketones (test code Negative *NA*(06/15/16 = UA Ketones) 2:56 PM) [facility] AND [id number] 19:56:00 Test Item Value Reference Range Interpretation Comments UA Blood (test code = Negative (06/15/16 2:56 UA Blood) PM) [facility] AND [id number] 19:56:00 Test Item Value Reference Range Interpretation Comments UA Nitrite (test code Negative (06/15/16 2:56 = UA Nitrite) PM) [facility] AND [id number] 19:56:00 Test Item Value Reference Range Interpretation Comments UA Urobilinogen (test code = UA 0.2 0.1-1.0 Urobilinogen) [facility] [id number] 19:56:00 Test Item Value Reference Range Interpretation Comments UA Color (test code = Yellow *NA*(06/15/16 UA Color) 2:56 PM) [facility]icsannCARDIAC [id number] 19:56:00 Test Item Value Reference Range Interpretation Comments Troponin-I (test code 6.52 See_Comment [Auto mated message] The = Troponin-I) system which g enerated this result transmit jigar reference range : <=0.40. The reference r [place] was not used to interpr et this result as sonido l/abnormal. [facility] [employer] [id number] 19:56:00 Test Item Value Reference Range Interpretation Comments Globulin (test code = Globulin) 3.7 2.7-4.2 [facility] [employer] [id number] 19:56:00 Test Item Value Reference Range Interpretation Comments A/G Ratio (test code = A/G Ratio) 0.9 0.7-1.6 [facility] [employer] [id number] 19:56:00 Test Item Value Reference Range Interpretation Comments B/C Ratio (test code = B/C Ratio) 19 6-25 [facility] [employer] [id number] 19:56:00 Test Item Value Reference Range Interpretation Comments Bili Total (test code = Bili Total) 0.5 0.2-1.3 [facility] [employer] [id number] 19:56:00 Test Item Value Reference Range Interpretation Comments Albumin Lvl (test code = Albumin Lvl) 3.3 3.5-5.0 [facility] [employer] [id number] 19:56:00 Test Item Value Reference Range Interpretation Comments Total Protein (test code = Total 7.0 6.4-8.4 Protein) [facility] [employer] [id number] 19:56:00 Test Item Value Reference Range Interpretation Comments Alk Phos (test code = Alk Phos) 68 39-136 [facility]ics[facility]lex[facility] [id number] 19:56:00 Test Item Value Reference Range Interpretation Comments AST (test code = AST) 51 See_Comment [Auto mated message] The system which ge nerated this result transmit jigar reference range : <=37. The reference range was not used to interpr et this result as sonido l/abnormal. [facility]ineannCHEM [id number] 19:56:00 Test Item Value Reference Range Interpretation Comments ALT (test code = ALT) 44 See_Comment [Auto mated message] The system which ge nerated this result transmit jigar reference range : <=65. The reference range was not used to interpr et this result as sonido l/abnormal. [facility] [id number] 19:56:00 Test Item Value Reference Range Interpretation Comments U Cannab Scr (test Negative *NA*(06/15/16 code = U Cannab Scr) 2:56 PM) [facility] [id number] 19:56:00 Test Item Value Reference Range Interpretation Comments U Phencyc Scr (test Negative *NA*(06/15/16 code = U Phencyc Scr) 2:56 PM) [facility] [id number] 19:56:00 Test Item Value Reference Range Interpretation Comments U Opiate Scr (test Negative *NA*(06/15/16 code = U Opiate Scr) 2:56 PM) [facility] [id number] 19:56:00 Test Item Value Reference Range Interpretation Comments U Cocaine Scr (test Negative *NA*(06/15/16 code = U Cocaine Scr) 2:56 PM) [facility] [id number] 19:56:00 Test Item Value Reference Range Interpretation Comments U Benzodia Scr (test Negative *NA*(06/15/16 code = U Benzodia Scr) 2:56 PM) [facility] [id number] 19:56:00 Test Item Value Reference Range Interpretation Comments U Amph Scr (test code Negative *NA*(06/15/16 = U Amph Scr) 2:56 PM) [facility] [id number] 19:56:00 Test Item Value Reference Range Interpretation Comments U Elsy Scr (test code Negative *NA*(06/15/16 = U Elsy Scr) 2:56 PM) [facility] [id number] 19:56:00 Test Item Value Reference Range Interpretation Comments UDS Note (test code = See Note (06/15/16 2:56 UDS Note) PM) [facility] [id number] 19:56:00 Test Item Value Reference Range Interpretation Comments Hep Bs Ag (test code Negative *NA*(06/15/16 = Hep Bs Ag) 2:56 PM) [facility] [id number] 19:56:00 Test Item Value Reference Range Interpretation Comments Hep B Core IgM (test Negative *NA*(06/15/16 code = Hep B Core 2:56 PM) IgM) [facility] [id number] 19:56:00 Test Item Value Reference Range Interpretation Comments Hep C Ab (test code = Positive *ABN*(06/15/16 Hep C Ab) 2:56 PM) [facility] [id number] 19:56:00 Test Item Value Reference Range Interpretation Comments Hep A IgM (test code Negative *NA*(06/15/16 = Hep A IgM) 2:56 PM) [facility] [id number] 19:56:00 Test Item Value Reference Range Interpretation Comments Hgb A1C (test code = Hgb A1C) 6.6 [facility] [id number] 19:56:00 Test Item Value Reference Range Interpretation Comments UA pH (test code = UA pH) 5.5 1 5.0-8.0 [facility] [id number] 19:56:00 Test Item Value Reference Range Interpretation Comments UA Spec Grav (test code = UA Spec 1.020 1 Grav) [facility] [id number] 19:56:00 Test Item Value Reference Range Interpretation Comments UA Protein (test code Negative (06/15/16 2:56 = UA Protein) PM) [facility] [id number] 19:56:00 Test Item Value Reference Range Interpretation Comments UA Turbidity (test code = Clear (06/15/16 2:56 UA Turbidity) PM) [facility] [id number] 19:56:00 Test Item Value Reference Range Interpretation Comments UA Leuk Est (test Negative (06/15/16 2:56 code = UA Leuk Est) PM) [facility] [id number] 19:56:00 Test Item Value Reference Range Interpretation Comments Micro? (test code = Not Indicated (06/15/16 Micro?) 2:56 PM) [facility] [id number] 19:56:00 Test Item Value Reference Range Interpretation Comments UA Glucose (test code Negative (06/15/16 2:56 = UA Glucose) PM) [facility] [id number] 19:56:00 Test Item Value Reference Range Interpretation Comments UA Bili (test code = Negative *NA*(06/15/16 UA Bili) 2:56 PM) [facility] [id number] 19:56:00 Test Item Value Reference Range Interpretation Comments UA Ketones (test code Negative *NA*(06/15/16 = UA Ketones) 2:56 PM) [facility] [id number] 19:56:00 Test Item Value Reference Range Interpretation Comments UA Blood (test code = Negative (06/15/16 2:56 UA Blood) PM) [facility] [id number] 19:56:00 Test Item Value Reference Range Interpretation Comments UA Nitrite (test code Negative (06/15/16 2:56 = UA Nitrite) PM) [facility] [id number] 19:56:00 Test Item Value Reference Range Interpretation Comments UA Urobilinogen (test code = UA 0.2 0.1-1.0 Urobilinogen) [facility] [id number] 19:56:00 Test Item Value Reference Range Interpretation Comments UA Color (test code = Yellow *NA*(06/15/16 UA Color) 2:56 PM) [facility] [id number] 19:56:00 Test Item Value Reference Range Interpretation Comments Troponin-I (test code = Troponin-I) 6.52 <=0.40 [facility] [id number] 19:56:00 Test Item Value Reference Range Interpretation Comments Globulin (test code = Globulin) 3.7 2.7-4.2 [facility] [id number] 19:56:00 Test Item Value Reference Range Interpretation Comments A/G Ratio (test code = A/G Ratio) 0.9 0.7-1.6 [facility] [id number] 19:56:00 Test Item Value Reference Range Interpretation Comments B/C Ratio (test code = B/C Ratio) 19 6-25 [facility] [id number] 19:56:00 Test Item Value Reference Range Interpretation Comments Bili Total (test code = Bili Total) 0.5 0.2-1.3 [facility] [id number] 19:56:00 Test Item Value Reference Range Interpretation Comments Albumin Lvl (test code = Albumin Lvl) 3.3 3.5-5.0 [facility]ics[facility] [id number] 19:56:00 Test Item Value Reference Range Interpretation Comments Total Protein (test code = Total 7.0 6.4-8.4 Protein) [facility] [id number] 19:56:00 Test Item Value Reference Range Interpretation Comments Alk Phos (test code = Alk Phos) 68 39-136 [facility] [id number] 19:56:00 Test Item Value Reference Range Interpretation Comments AST (test code = AST) 51 <=37 [facility]icsPh[facility] [id number] 19:56:00 Test Item Value Reference Range Interpretation Comments ALT (test code = ALT) 44 <=65 [facility] HospitalWavo.me [id number] 19:56:00 Test Item Value Reference Range Interpretation Comments U Cannab Scr (test Negative *NA*(06/15/16 code = U Cannab Scr) 2:56 PM) [facility] [id number] 19:56:00 Test Item Value Reference Range Interpretation Comments U Phencyc Scr (test Negative *NA*(06/15/16 code = U Phencyc Scr) 2:56 PM) [facility] [id number] 19:56:00 Test Item Value Reference Range Interpretation Comments U Opiate Scr (test Negative *NA*(06/15/16 code = U Opiate Scr) 2:56 PM) [facility] [id number] 19:56:00 Test Item Value Reference Range Interpretation Comments U Cocaine Scr (test Negative *NA*(06/15/16 code = U Cocaine Scr) 2:56 PM) [facility] [id number] 19:56:00 Test Item Value Reference Range Interpretation Comments U Benzodia Scr (test Negative *NA*(06/15/16 code = U Benzodia Scr) 2:56 PM) [facility] [id number] 19:56:00 Test Item Value Reference Range Interpretation Comments U Amph Scr (test code Negative *NA*(06/15/16 = U Amph Scr) 2:56 PM) [facility] [id number] 19:56:00 Test Item Value Reference Range Interpretation Comments U Elsy Scr (test code Negative *NA*(06/15/16 = U Elsy Scr) 2:56 PM) [facility] [id number] 19:56:00 Test Item Value Reference Range Interpretation Comments UDS Note (test code = See Note (06/15/16 2:56 UDS Note) PM) [facility] [id number] 19:56:00 Test Item Value Reference Range Interpretation Comments Hep Bs Ag (test code Negative *NA*(06/15/16 = Hep Bs Ag) 2:56 PM) [facility] [id number] 19:56:00 Test Item Value Reference Range Interpretation Comments Hep B Core IgM (test Negative *NA*(06/15/16 code = Hep B Core 2:56 PM) IgM) [facility] [id number] 19:56:00 Test Item Value Reference Range Interpretation Comments Hep C Ab (test code = Positive *ABN*(06/15/16 Hep C Ab) 2:56 PM) [facility] [id number] 19:56:00 Test Item Value Reference Range Interpretation Comments Hep A IgM (test code Negative *NA*(06/15/16 = Hep A IgM) 2:56 PM) [facility] [id number] 19:56:00 Test Item Value Reference Range Interpretation Comments Hgb A1C (test code = Hgb A1C) 6.6 [facility] [id number] 19:56:00 Test Item Value Reference Range Interpretation Comments UA pH (test code = UA pH) 5.5 1 5.0-8.0 [facility] [id number] 19:56:00 Test Item Value Reference Range Interpretation Comments UA Spec Grav (test code = UA Spec 1.020 1 Grav) [facility] [id number] 19:56:00 Test Item Value Reference Range Interpretation Comments UA Protein (test code Negative (06/15/16 2:56 = UA Protein) PM) [facility] [id number] 19:56:00 Test Item Value Reference Range Interpretation Comments UA Turbidity (test code = Clear (06/15/16 2:56 UA Turbidity) PM) [facility] [id number] 19:56:00 Test Item Value Reference Range Interpretation Comments UA Leuk Est (test Negative (06/15/16 2:56 code = UA Leuk Est) PM) [facility] [id number] 19:56:00 Test Item Value Reference Range Interpretation Comments Micro? (test code = Not Indicated (06/15/16 Micro?) 2:56 PM) [facility] [id number] 19:56:00 Test Item Value Reference Range Interpretation Comments UA Glucose (test code Negative (06/15/16 2:56 = UA Glucose) PM) [facility] [id number] 19:56:00 Test Item Value Reference Range Interpretation Comments UA Bili (test code = Negative *NA*(06/15/16 UA Bili) 2:56 PM) [facility] [id number] 19:56:00 Test Item Value Reference Range Interpretation Comments UA Ketones (test code Negative *NA*(06/15/16 = UA Ketones) 2:56 PM) [facility] [id number] 19:56:00 Test Item Value Reference Range Interpretation Comments UA Blood (test code = Negative (06/15/16 2:56 UA Blood) PM) [facility] [id number] 19:56:00 Test Item Value Reference Range Interpretation Comments UA Nitrite (test code Negative (06/15/16 2:56 = UA Nitrite) PM) [facility] [id number] 19:56:00 Test Item Value Reference Range Interpretation Comments UA Urobilinogen (test code = UA 0.2 0.1-1.0 Urobilinogen) [facility] [id number] 19:56:00 Test Item Value Reference Range Interpretation Comments UA Color (test code = Yellow *NA*(06/15/16 UA Color) 2:56 PM) [facility] [id number] 19:56:00 Test Item Value Reference Range Interpretation Comments Troponin-I (test code = Troponin-I) 6.52 <=0.40 [facility] [id number] 19:56:00 Test Item Value Reference Range Interpretation Comments Globulin (test code = Globulin) 3.7 2.7-4.2 [facility] [id number] 19:56:00 Test Item Value Reference Range Interpretation Comments A/G Ratio (test code = A/G Ratio) 0.9 0.7-1.6 [facility] [id number] 19:56:00 Test Item Value Reference Range Interpretation Comments B/C Ratio (test code = B/C Ratio) 19 6-25 [facility] [id number] 19:56:00 Test Item Value Reference Range Interpretation Comments Bili Total (test code = Bili Total) 0.5 0.2-1.3 [facility] [id number] 19:56:00 Test Item Value Reference Range Interpretation Comments Albumin Lvl (test code = Albumin Lvl) 3.3 3.5-5.0 [facility] [id number] 19:56:00 Test Item Value Reference Range Interpretation Comments Total Protein (test code = Total 7.0 6.4-8.4 Protein) [facility] [id number] 19:56:00 Test Item Value Reference Range Interpretation Comments Alk Phos (test code = Alk Phos) 68 39-136 [facility] [id number] 19:56:00 Test Item Value Reference Range Interpretation Comments AST (test code = AST) 51 <=37 [facility] [id number] 19:56:00 Test Item Value Reference Range Interpretation Comments ALT (test code = ALT) 44 <=65 [facility] [id number] 19:56:00 Test Item Value Reference Range Interpretation Comments U Cannab Scr (test Negative *NA*(06/15/16 code = U Cannab Scr) 2:56 PM) [facility] [id number] 19:56:00 Test Item Value Reference Range Interpretation Comments U Phencyc Scr (test Negative *NA*(06/15/16 code = U Phencyc Scr) 2:56 PM) [facility] [id number] 19:56:00 Test Item Value Reference Range Interpretation Comments U Opiate Scr (test Negative *NA*(06/15/16 code = U Opiate Scr) 2:56 PM) [facility] [id number] 19:56:00 Test Item Value Reference Range Interpretation Comments U Cocaine Scr (test Negative *NA*(06/15/16 code = U Cocaine Scr) 2:56 PM) [facility] [id number] 19:56:00 Test Item Value Reference Range Interpretation Comments U Benzodia Scr (test Negative *NA*(06/15/16 code = U Benzodia Scr) 2:56 PM) [facility] [id number] 19:56:00 Test Item Value Reference Range Interpretation Comments U Amph Scr (test code Negative *NA*(06/15/16 = U Amph Scr) 2:56 PM) [facility] [id number] 19:56:00 Test Item Value Reference Range Interpretation Comments U Elsy Scr (test code Negative *NA*(06/15/16 = U Elsy Scr) 2:56 PM) [facility] [id number] 19:56:00 Test Item Value Reference Range Interpretation Comments UDS Note (test code = See Note (06/15/16 2:56 UDS Note) PM) [facility] [id number] 19:56:00 Test Item Value Reference Range Interpretation Comments Hep Bs Ag (test code Negative *NA*(06/15/16 = Hep Bs Ag) 2:56 PM) [id number] 19:56:00 Test Item Value Reference Range Interpretation Comments Hep B Core IgM (test Negative *NA*(06/15/16 code = Hep B Core 2:56 PM) IgM) [facility] [id number] 19:56:00 Test Item Value Reference Range Interpretation Comments Hep C Ab (test code = Positive *ABN*(06/15/16 Hep C Ab) 2:56 PM) [facility] [id number] 19:56:00 Test Item Value Reference Range Interpretation Comments Hep A IgM (test code Negative *NA*(06/15/16 = Hep A IgM) 2:56 PM) [facility] [id number] 19:56:00 Test Item Value Reference Range Interpretation Comments Hgb A1C (test code = Hgb A1C) 6.6 [facility] AND [id number] 19:56:00 Test Item Value Reference Range Interpretation Comments UA pH (test code = UA pH) 5.5 1 5.0-8.0 [facility] AND [id number] 19:56:00 Test Item Value Reference Range Interpretation Comments UA Spec Grav (test code = UA Spec 1.020 1 Grav) [facility] AND [id number] 19:56:00 Test Item Value Reference Range Interpretation Comments UA Protein (test code Negative (06/15/16 2:56 = UA Protein) PM) [facility] AND [id number] 19:56:00 Test Item Value Reference Range Interpretation Comments UA Turbidity (test code = Clear (06/15/16 2:56 UA Turbidity) PM) [facility] AND [id number] 19:56:00 Test Item Value Reference Range Interpretation Comments UA Leuk Est (test Negative (06/15/16 2:56 code = UA Leuk Est) PM) [facility] AND [id number] 19:56:00 Test Item Value Reference Range Interpretation Comments Micro? (test code = Not Indicated (06/15/16 Micro?) 2:56 PM) [facility] AND [id number] 19:56:00 Test Item Value Reference Range Interpretation Comments UA Glucose (test code Negative (06/15/16 2:56 = UA Glucose) PM) [facility] AND [id number] 19:56:00 Test Item Value Reference Range Interpretation Comments UA Bili (test code = Negative *NA*(06/15/16 UA Bili) 2:56 PM) [facility] AND [id number] 19:56:00 Test Item Value Reference Range Interpretation Comments UA Ketones (test code Negative *NA*(06/15/16 = UA Ketones) 2:56 PM) [facility] AND [id number] 19:56:00 Test Item Value Reference Range Interpretation Comments UA Blood (test code = Negative (06/15/16 2:56 UA Blood) PM) [facility] AND [id number] 19:56:00 Test Item Value Reference Range Interpretation Comments UA Nitrite (test code Negative (06/15/16 2:56 = UA Nitrite) PM) [facility] [id number] 19:56:00 Test Item Value Reference Range Interpretation Comments UA Urobilinogen (test code = UA 0.2 0.1-1.0 Urobilinogen) [facility] [id number] 19:56:00 Test Item Value Reference Range Interpretation Comments UA Color (test code = Yellow *NA*(06/15/16 UA Color) 2:56 PM) [facility] [id number] 19:56:00 Test Item Value Reference Range Interpretation Comments Troponin-I (test code = Troponin-I) 6.52 <=0.40 [facility] [id number] 19:56:00 Test Item Value Reference Range Interpretation Comments Globulin (test code = Globulin) 3.7 2.7-4.2 [facility] [id number] 19:56:00 Test Item Value Reference Range Interpretation Comments A/G Ratio (test code = A/G Ratio) 0.9 0.7-1.6 [facility] [id number] 19:56:00 Test Item Value Reference Range Interpretation Comments B/C Ratio (test code = B/C Ratio) 19 6-25 [facility] [id number] 19:56:00 Test Item Value Reference Range Interpretation Comments Bili Total (test code = Bili Total) 0.5 0.2-1.3 [facility] [id number] 19:56:00 Test Item Value Reference Range Interpretation Comments Albumin Lvl (test code = Albumin Lvl) 3.3 3.5-5.0 [facility] [id number] 19:56:00 Test Item Value Reference Range Interpretation Comments Total Protein (test code = Total 7.0 6.4-8.4 Protein) [facility] [id number] 19:56:00 Test Item Value Reference Range Interpretation Comments Alk Phos (test code = Alk Phos) 68 39-136 [facility] [id number] 19:56:00 Test Item Value Reference Range Interpretation Comments AST (test code = AST) 51 <=37 [facility] [id number] 19:56:00 Test Item Value Reference Range Interpretation Comments ALT (test code = ALT) 44 <=65 [facility] [id number] 19:56:00 Test Item Value Reference Range Interpretation Comments U Cannab Scr (test Negative *NA*(06/15/16 code = U Cannab Scr) 2:56 PM) [facility] [id number] 19:56:00 Test Item Value Reference Range Interpretation Comments U Phencyc Scr (test Negative *NA*(06/15/16 code = U Phencyc Scr) 2:56 PM) [facility] [id number] 19:56:00 Test Item Value Reference Range Interpretation Comments U Opiate Scr (test Negative *NA*(06/15/16 code = U Opiate Scr) 2:56 PM) [facility] [id number] 19:56:00 Test Item Value Reference Range Interpretation Comments U Cocaine Scr (test Negative *NA*(06/15/16 code = U Cocaine Scr) 2:56 PM) [facility] [id number] 19:56:00 Test Item Value Reference Range Interpretation Comments U Benzodia Scr (test Negative *NA*(06/15/16 code = U Benzodia Scr) 2:56 PM) [facility] [id number] 19:56:00 Test Item Value Reference Range Interpretation Comments U Amph Scr (test code Negative *NA*(06/15/16 = U Amph Scr) 2:56 PM) [facility] [id number] 19:56:00 Test Item Value Reference Range Interpretation Comments U Elsy Scr (test code Negative *NA*(06/15/16 = U Elsy Scr) 2:56 PM) [facility] [id number] 19:56:00 Test Item Value Reference Range Interpretation Comments UDS Note (test code = See Note (06/15/16 2:56 UDS Note) PM) [id number] 19:56:00 Test Item Value Reference Range Interpretation Comments Hep Bs Ag (test code Negative *NA*(06/15/16 = Hep Bs Ag) 2:56 PM) [id number] 19:56:00 Test Item Value Reference Range Interpretation Comments Hep B Core IgM (test Negative *NA*(06/15/16 code = Hep B Core 2:56 PM) IgM) [id number] 19:56:00 Test Item Value Reference Range Interpretation Comments Hep C Ab (test code = Positive *ABN*(06/15/16 Hep C Ab) 2:56 PM) [id number] 19:56:00 Test Item Value Reference Range Interpretation Comments Hep A IgM (test code Negative *NA*(06/15/16 = Hep A IgM) 2:56 PM) [facility] [id number] 19:56:00 Test Item Value Reference Range Interpretation Comments Hgb A1C (test code = Hgb A1C) 6.6 [facility] AND [id number] 19:56:00 Test Item Value Reference Range Interpretation Comments UA pH (test code = UA pH) 5.5 1 5.0-8.0 [facility] AND [id number] 19:56:00 Test Item Value Reference Range Interpretation Comments UA Spec Grav (test code = UA Spec 1.020 1 Grav) [facility] AND [id number] 19:56:00 Test Item Value Reference Range Interpretation Comments UA Protein (test code Negative (06/15/16 2:56 = UA Protein) PM) [facility] AND [id number] 19:56:00 Test Item Value Reference Range Interpretation Comments UA Turbidity (test code = Clear (06/15/16 2:56 UA Turbidity) PM) [facility] AND [id number] 19:56:00 Test Item Value Reference Range Interpretation Comments UA Leuk Est (test Negative (06/15/16 2:56 code = UA Leuk Est) PM) [facility] AND [id number] 19:56:00 Test Item Value Reference Range Interpretation Comments Micro? (test code = Not Indicated (06/15/16 Micro?) 2:56 PM) [facility] AND [id number] 19:56:00 Test Item Value Reference Range Interpretation Comments UA Glucose (test code Negative (06/15/16 2:56 = UA Glucose) PM) [facility] AND [id number] 19:56:00 Test Item Value Reference Range Interpretation Comments UA Bili (test code = Negative *NA*(06/15/16 UA Bili) 2:56 PM) [facility] [id number] 19:56:00 Test Item Value Reference Range Interpretation Comments UA Ketones (test code Negative *NA*(06/15/16 = UA Ketones) 2:56 PM) [facility] [id number] 19:56:00 Test Item Value Reference Range Interpretation Comments UA Blood (test code = Negative (06/15/16 2:56 UA Blood) PM) [facility] [id number] 19:56:00 Test Item Value Reference Range Interpretation Comments UA Nitrite (test code Negative (06/15/16 2:56 = UA Nitrite) PM) [facility] [id number] 19:56:00 Test Item Value Reference Range Interpretation Comments UA Urobilinogen (test code = UA 0.2 0.1-1.0 Urobilinogen) [facility] [id number] 19:56:00 Test Item Value Reference Range Interpretation Comments UA Color (test code = Yellow *NA*(06/15/16 UA Color) 2:56 PM) [facility] [id number] 19:56:00 Test Item Value Reference Range Interpretation Comments Troponin-I (test code = Troponin-I) 6.52 <=0.40 [facility] [id number] 19:56:00 Test Item Value Reference Range Interpretation Comments Globulin (test code = Globulin) 3.7 2.7-4.2 [facility] [id number] 19:56:00 Test Item Value Reference Range Interpretation Comments A/G Ratio (test code = A/G Ratio) 0.9 0.7-1.6 [facility] [id number] 19:56:00 Test Item Value Reference Range Interpretation Comments B/C Ratio (test code = B/C Ratio) 19 6-25 [facility] [id number] 19:56:00 Test Item Value Reference Range Interpretation Comments Bili Total (test code = Bili Total) 0.5 0.2-1.3 [facility] [id number] 19:56:00 Test Item Value Reference Range Interpretation Comments Albumin Lvl (test code = Albumin Lvl) 3.3 3.5-5.0 [facility] [id number] 19:56:00 Test Item Value Reference Range Interpretation Comments Total Protein (test code = Total 7.0 6.4-8.4 Protein) [facility] [id number] 19:56:00 Test Item Value Reference Range Interpretation Comments Alk Phos (test code = Alk Phos) 68 39-136 [facility] [id number] 19:56:00 Test Item Value Reference Range Interpretation Comments AST (test code = AST) 51 <=37 [facility] [id number] 19:56:00 Test Item Value Reference Range Interpretation Comments ALT (test code = ALT) 44 <=65 [facility] [id number] 19:56:00 Test Item Value Reference Range Interpretation Comments U Cannab Scr (test Negative *NA*(06/15/16 code = U Cannab Scr) 2:56 PM) [facility] [id number] 19:56:00 Test Item Value Reference Range Interpretation Comments U Phencyc Scr (test Negative *NA*(06/15/16 code = U Phencyc Scr) 2:56 PM) [facility] [id number] 19:56:00 Test Item Value Reference Range Interpretation Comments U Opiate Scr (test Negative *NA*(06/15/16 code = U Opiate Scr) 2:56 PM) [facility] [id number] 19:56:00 Test Item Value Reference Range Interpretation Comments U Cocaine Scr (test Negative *NA*(06/15/16 code = U Cocaine Scr) 2:56 PM) [facility] [id number] 19:56:00 Test Item Value Reference Range Interpretation Comments U Benzodia Scr (test Negative *NA*(06/15/16 code = U Benzodia Scr) 2:56 PM) [facility] [id number] 19:56:00 Test Item Value Reference Range Interpretation Comments U Amph Scr (test code Negative *NA*(06/15/16 = U Amph Scr) 2:56 PM) [facility] [id number] 19:56:00 Test Item Value Reference Range Interpretation Comments U Elsy Scr (test code Negative *NA*(06/15/16 = U Elsy Scr) 2:56 PM) [facility] [id number] 19:56:00 Test Item Value Reference Range Interpretation Comments UDS Note (test code = See Note (06/15/16 2:56 UDS Note) PM) [facility] [id number] 19:56:00 Test Item Value Reference Range Interpretation Comments Hep Bs Ag (test code Negative *NA*(06/15/16 = Hep Bs Ag) 2:56 PM) [facility] [id number] 19:56:00 Test Item Value Reference Range Interpretation Comments Hep B Core IgM (test Negative *NA*(06/15/16 code = Hep B Core 2:56 PM) IgM) [facility] [id number] 19:56:00 Test Item Value Reference Range Interpretation Comments Hep C Ab (test code = Positive *ABN*(06/15/16 Hep C Ab) 2:56 PM) [facility] [id number] 19:56:00 Test Item Value Reference Range Interpretation Comments Hep A IgM (test code Negative *NA*(06/15/16 = Hep A IgM) 2:56 PM) [facility]SPE[facility] [id number] 19:56:00 Test Item Value Reference Range Interpretation Comments Hgb A1C (test code = Hgb A1C) 6.6 [facility] [id number] 19:56:00 Test Item Value Reference Range Interpretation Comments UA pH (test code = UA pH) 5.5 1 5.0-8.0 [facility] [id number] 19:56:00 Test Item Value Reference Range Interpretation Comments UA Spec Grav (test code = UA Spec 1.020 1 Grav) [facility] [id number] 19:56:00 Test Item Value Reference Range Interpretation Comments UA Protein (test code Negative (06/15/16 2:56 = UA Protein) PM) [facility] [id number] 19:56:00 Test Item Value Reference Range Interpretation Comments UA Turbidity (test code = Clear (06/15/16 2:56 UA Turbidity) PM) [facility] [id number] 19:56:00 Test Item Value Reference Range Interpretation Comments UA Leuk Est (test Negative (06/15/16 2:56 code = UA Leuk Est) PM) [facility] AND [id number] 19:56:00 Test Item Value Reference Range Interpretation Comments Micro? (test code = Not Indicated (06/15/16 Micro?) 2:56 PM) [facility] AND [id number] 19:56:00 Test Item Value Reference Range Interpretation Comments UA Glucose (test code Negative (06/15/16 2:56 = UA Glucose) PM) [facility] AND [id number] 19:56:00 Test Item Value Reference Range Interpretation Comments UA Bili (test code = Negative *NA*(06/15/16 UA Bili) 2:56 PM) [facility] AND [id number] 19:56:00 Test Item Value Reference Range Interpretation Comments UA Ketones (test code Negative *NA*(06/15/16 = UA Ketones) 2:56 PM) [facility] AND [id number] 19:56:00 Test Item Value Reference Range Interpretation Comments UA Blood (test code = Negative (06/15/16 2:56 UA Blood) PM) [facility] AND [id number] 19:56:00 Test Item Value Reference Range Interpretation Comments UA Nitrite (test code Negative (06/15/16 2:56 = UA Nitrite) PM) [facility] AND [id number] 19:56:00 Test Item Value Reference Range Interpretation Comments UA Urobilinogen (test code = UA 0.2 0.1-1.0 Urobilinogen) [facility] AND [id number] 19:56:00 Test Item Value Reference Range Interpretation Comments UA Color (test code = Yellow *NA*(06/15/16 UA Color) 2:56 PM) [facility]
--- NOTE | 2023-01-30 16:24 | RAD REPORT ---
EXAM DESCRIPTION: RADChest Single View01/30/2023 3:22 pm CLINICAL HISTORY: SOB COMPARISON: Chest Pa And Lat (2 Views) dated 03/17/2022; Chest Single View dated 12/05/2021; Chest Si ngle View dated 05/01/2021; Chest Single View dated 04/29/2021 TECHNIQUE: Portable AP view of the chest. FINDINGS: The lungs show stable bibasilar atelectatic changes. Stable prominence of the central vasc ular markings. No pneumothorax or effusion. Stable cardiomegaly. Mediastinal contours are unchanged with sequelae of prior CABG. IMPRESSION: No acute pulmonary process. Stable findings as above.
[2023-01-30 16:54] LABS: Absolute Lymphocytes (CBC) 0.7 K/uL (0.7-4.9); Hematocrit 37.5 % (39.6-49.0); MCV 89.2 fL (80-100); MPV 7.1 fL (7.6-11.3); Platelets 237 thou/uL (152-406); RBC Red Blood Cell Count 4.21 M/uL (4.33-5.43)
[2023-01-30] MEDS ORDERED: ACETAMINOPHEN 500 MG TAB ONE (16:56)
[2023-01-30 17:08] LABS: Albumin 3.5 g/dL (3.4-5.0); Bilirubin Total 0.3 mg/dL (0.2-1.0); Potassium 4.3 mEq/L (3.5-5.1); Protein, Total 7.3 g/dL (6.4-8.2)
[2023-01-30 17:20] LABS: Troponin High Sensitivity 129.1 pg/mL (<58.9)
--- NOTE | 2023-01-30 18:09 | EDPHYS ---
Physician Documentation [facility] Name: Valerio Berg Age: 72 yrs Sex: Male : 1950 Arrival Date: 01/30/2023 Time: 14:52 Bed 20 Private MD: ED Physician Marcelino Mukherjee HPI: 01/30 15:13 This 72 yrs old Black Male presents to ER via Wheelchair with complaints of Leg ec2 Swelling. 15:13 Patient arrives today for evaluation of shortness of breath as well as bilateral lower ec2 extremity swelling. Patient with history of CHF, is on Lasix, reports that he has been feeling subjectively more short of breath and is having worsening pitting edema in the lower extremities. Patient reports no chest pain. Patient reports that he is medication compliant.. Historical: - Allergies: 15:12 Betadine; iw 15:12 Povidone-Iodine; iw - PMHx: 15:12 Borderline Diabetes; COPD; Hypothyroidism; Myocardial infarction; iw 15:13 cva; iw ROS: 15:13 Constitutional: as per hpi ec2 Exam: 15:13 Constitutional: GEN: NAD Head: atraumatic Eyes: EOMI Ears: External ears are ec2 normal. CV: regular rate, bilateral lower extremity edema, 3+ LUNGS: no respiratory distress ABD: non-distended SKIN: no evidence of rashes MSK: no evidence of trauma NEURO: moves all extremities equally Vital Signs: 15:13 BP 100 / 51; Pulse 72; Resp 20 S; Temp 98.6(TE); Pulse Ox 94% on R/A; Weight 92.08 kg; iw Height 5 ft. 10 in. ; Pain 6/10; 19:00 BP 90 / 62; Pulse 63; Resp 13; Pulse Ox 100% ; vc1 20:07 BP 110 / 57; Pulse 63; Resp 17; Pulse Ox 99% ; vc1 15:13 Body Mass Index 29.13 (92.08 kg, 177.8 cm) iw 15:13 Pain Scale: Adult iw MDM: 14:58 Patient medically screened. ec2 15:13 ED course: Patient arrives today due to concern for respiratory complaints as well as ec2 lower extremity edema. Examination remarkable for cardiovascular findings as noted above. Will obtain lab work, EKG, chest x-ray as well as a BNP. Currently considering volume overload secondary to CHF versus renal dysfunction versus liver dysfunction.. 16:36 ED course: Chest x-ray with no acute intrathoracic process identified.. ec2 16:41 ED course: EKG independently reviewed and interpreted by me, shows atrial fibrillation, ec2 rate of 62, no acute ST segment elevations, right bundle branch block noted.. 17:22 Data reviewed: vital signs. ED course: Patient's lab work is remarkable for reassuring ec2 CBC, metabolic profile that shows diminished renal function with a creatinine of 2.48 and a GFR of 27. Troponin elevated at 129 and BNP elevated at 2550. We will give the patient a full dose of aspirin as well as IV Lasix for further management. I suspect CHF exacerbation contributing to the patient's presentation today. . 17:23 ED course: When compared to external records, patient troponin and renal function are ec2 similar.. 18:00 ED course: Ultimately patient require admission for diuresis given the patient's lower ec2 extremity edema and shortness of breath. I discussed case with hospitalist, pending admission.. 11 15:13 Order name: CBC with Diff ec2 01/30 15:13 Order name: NT PRO-BNP; Complete Time: 17:21 ec2 01/30 15:13 Order name: Troponin HS; Complete Time: 17:21 ec2 01/30 15:13 Order name: CMP; Complete Time: 17:21 ec2 01/30 18:27 Order name: CBC with Automated Diff EDMS 01/30 18:27 Order name: CBC with Automated Diff EDMS 01/30 18:27 Order name: Comprehensive Metabolic Panel EDWI 01/30 18:27 Order name: Comprehensive Metabolic Panel EDWI 01/30 18:27 Order name: Lipid Profile EDMS 01/30 18:27 Order name: Lipid Profile EDMS 01/30 18:27 Order name: Troponin High Sensitivity EDMS 01/30 18:27 Order name: Troponin High Sensitivity EDMS 01/30 18:28 Order name: Troponin High Sensitivity EDMS 01/30 18:28 Order name: Troponin High Sensitivity EDMS 01/30 15:13 Order name: XRAY Chest (1 view); Complete Time: 16:36 ec2 01/30 15:13 Order name: EKG; Complete Time: 15:13 ec2 01/30 15:13 Order name: Cardiac monitoring; Complete Time: 16:43 ec2 01/30 15:13 Order name: EKG - Nurse/Tech; Complete Time: 16:43 ec2 01/30 15:13 Order name: IV Saline Lock; Complete Time: 16:43 ec2 01/30 15:13 Order name: Labs collected and sent; Complete Time: 16:43 ec2 01/30 15:13 Order name: O2 Per Protocol; Complete Time: 16:43 ec2 01/30 15:13 Order name: O2 Sat Monitoring; Complete Time: 16:43 ec2 Administered Medications: 16:45 Drug: Acetaminophen PO 1000 mg PO once Route: PO; rs5 17:10 Follow up: Response: No adverse reaction; Pain is decreased rs5 17:32 Drug: Aspirin PO Chewable Tablet 324 mg PO once; 81 mg tablets x 4 Route: PO; rs5 18:00 Follow up: Response: No adverse reaction rs5 18:15 Drug: Furosemide IVP 80 mg IVP once; give over 2 minutes Route: IVP; Site: right rs5 antecubital; 18:31 Follow up: Response: No adverse reaction rs5 Disposition Summary: 01/30/23 18:08 Hospitalization Ordered Notes: Hospitalization Status: Inpatient Admission ec2 Provider: Bogdan Ramos ec2 Location: Telemetry/MedSurg (Inpatient) ec2 Condition: Stable ec2 Problem: an acute exacerbation ec2 Symptoms: have improved ec2 Bed/Room Type: Standard ec2 Room Assignment: 216(01/30/23 19:40) Diagnosis - Heart failure, unspecified ec2 Forms: - Medication Reconciliation Form ec2 - SBAR form ec2 - Leadership Thank You Letter ec2 Signatures: Dispatcher [employer] EDWI Leticia Bernard RN RN Santa Hung RN RN Oskar Saeed RN RN rs5 Marcelino Mukherjee MD MD ec2 Corrections: (The following items were deleted from the chart) 15:13 15:12 PMHx: CVA (Myocardial infarction); iw 18:07 17:24 ED course: Ultimately patient require admission for diuresis given the patient's ec2 lower extremity edema and shortness of breath. I discussed case with hospitalist, pending admission.. ec2 18:07 17:24 ED course: Ultimately patient require admission for diuresis given the patient's ec2 lower extremity edema and shortness of breath. I discussed case with hospitalist, pending admission.. ec2 19:40 18:08 ec2 mw
--- NOTE | 2023-01-30 18:09 | ER ---
Nurse's Notes [facility] Name: Valerio Berg Age: 72 yrs Sex: Male : 1950 Arrival Date: 01/30/2023 Time: 14:52 Bed 20 Private MD: Diagnosis: Heart failure, unspecified Presentation: 01/30 15:11 Chief complaint: Patient states: increased leg swelling since yesterday , feels like he iw has fluid on his lungs, hx of CHF. Coronavirus screen: At this time, the client does not indicate any symptoms associated with coronavirus-19. Ebola Screen: Patient negative for fever greater than or equal to 101.5 degrees Fahrenheit, and additional compatible Ebola Virus Disease symptoms Patient denies exposure to infectious person. Patient denies travel to an Ebola-affected area in the 21 days before illness onset. No symptoms or risks identified at this time. Onset of symptoms was January 29, 2023. 15:11 Method Of Arrival: Wheelchair iw 15:11 Acuity: ADRIÁN 3 iw Historical: - Allergies: 15:12 Betadine; iw 15:12 Povidone-Iodine; iw - PMHx: 15:12 Borderline Diabetes; COPD; Hypothyroidism; Myocardial infarction; iw 15:13 cva; iw Screenin:17 [facility] ED Fall Risk Assessment (Adult) History of falling in the last 3 months, rs5 including since admission No falls in past 3 months (0 pts) Confusion or Disorientation No (0 pts) Intoxicated or Sedated No (0 pts) Impaired Gait Yes (1 pt) Mobility Assist Device Used Yes (1 pt) Altered Elimination No (0 pt) Score/Fall Risk Level 0 - 2 = Low Risk Oriented to surroundings, Maintained a safe environment, Educated pt \T\ family on fall prevention, incl call for assistance when getting out of bed, Assessed \T\ reinforced patient's understanding of fall precautions. Abuse screen: Denies threats or abuse. Nutritional screening: No deficits noted. Tuberculosis screening: No symptoms or risk factors identified. Assessment: 15:17 General: Appears in no apparent distress. uncomfortable, Behavior is calm, cooperative. rs5 15:17 Pain: Complains of pain in lower extremitites bilat Pain does not radiate. Pain rs5 currently is 3 out of 10 on a pain scale. Quality of pain is described as aching, Pain began 2-3 days ago. Is continuous. Neuro: Level of Consciousness is awake, alert, obeys commands, Oriented to person, place, time, situation. Cardiovascular: Denies chest pain, Heart tones S1 S2 present Rhythm is regular. Respiratory: Airway is patent Respiratory effort is even, unlabored, Respiratory pattern is regular, symmetrical, Breath sounds are clear bilaterally. Parent/caregiver reports the patient having cough that is non-productive. GI: Abdomen is round non-distended, Bowel sounds present X 4 quads. Abd is soft and non tender X 4 quads. : No signs and/or symptoms were reported regarding the genitourinary system. EENT: No signs and/or symptoms were reported regarding the EENT system. Derm: Skin is intact, Skin is dry, Skin is normal, Skin temperature is warm. Musculoskeletal: Range of motion: limited in lower extremeties bilat. 16:30 Reassessment: Pt complains of pain to lower extremities bilat 6/10, provider notified . rs5 16:45 Reassessment: To bedside for med adm. rs5 17:10 Reassessment: Patient states feeling better. Patient states symptoms have improved. rs5 Pain: Complains of pain in lower extremities bilat Pain does not radiate. Pain currently is 2 out of 10 on a pain scale. Quality of pain is described as aching, Is continuous. 18:20 Reassessment: Patient and/or family updated on plan of care and expected duration. Pain rs5 level reassessed. Patient is alert, oriented x 3, equal unlabored respirations, skin warm/dry/pink. 18:55 Reassessment: [place] provided per pt request. rs5 18:55 Cardiovascular: Rhythm is regular. Respiratory: Respiratory effort is even, unlabored, rs5 Respiratory pattern is regular, symmetrical. 19:00 Reassessment: Pt resting comfortably in recliner. vc1 20:02 Reassessment: No changes from previously documented assessment. Patient and/or family vc1 updated on plan of care and expected duration. Pain level reassessed. Patient is alert, oriented x 3, equal unlabored respirations, skin warm/dry/pink. Vital Signs: 15:13 BP 100 / 51; Pulse 72; Resp 20 S; Temp 98.6(TE); Pulse Ox 94% on R/A; Weight 92.08 kg; iw Height 5 ft. 10 in. ; Pain 6/10; 19:00 BP 90 / 62; Pulse 63; Resp 13; Pulse Ox 100% ; vc1 20:07 BP 110 / 57; Pulse 63; Resp 17; Pulse Ox 99% ; vc1 15:13 Body Mass Index 29.13 (92.08 kg, 177.8 cm) iw 15:13 Pain Scale: Adult iw ED Course: 14:56 Patient arrived in ED. mg5 14:58 Marcelino Mukherjee MD is Attending Physician. ec2 15:12 Triage completed. iw 15:24 XRAY Chest (1 view) In Process Unspecified. EDMS 16:19 Oskar Saeed, APURVA is Primary Nurse. rs5 18:08 Bogdan Ramos MD is Hospitalizing Provider. ec2 19:00 Report received from APURVA Schmitt. vc1 21:45 No provider procedures requiring assistance completed. Patient admitted, IV remains in vc1 place. Administered Medications: 16:45 Drug: Acetaminophen PO 1000 mg PO once Route: PO; rs5 17:10 Follow up: Response: No adverse reaction; Pain is decreased rs5 17:32 Drug: Aspirin PO Chewable Tablet 324 mg PO once; 81 mg tablets x 4 Route: PO; rs5 18:00 Follow up: Response: No adverse reaction rs5 18:15 Drug: Furosemide IVP 80 mg IVP once; give over 2 minutes Route: IVP; Site: right rs5 antecubital; 18:31 Follow up: Response: No adverse reaction rs5 Medication: 21:45 VIS not applicable for this client. vc1 Outcome: 18:08 Decision to Hospitalize by Provider. ec2 21:45 Admitted to Med/surg accompanied by tech, via wheelchair, room 216, vc1 21:45 Condition: good 21:45 Instructed on the need for admit, 21:46 Patient left the ED. vc1 Signatures: Dispatcher [employer] Santa Stearns RN RN Brandy Swartz RN RN vc1 Oskar Saeed, APURVA MIXON rs5 Yara Rice mg5 Marcelino Mukherjee MD MD ec2 Corrections: (The following items were deleted from the chart) 15:13 15:12 PMHx: CVA (Myocardial infarction); iw iw 15:15 15:13 Pulse 72bpm; Resp 20bpm; Spontaneous; Pulse Ox 94% RA; Temp 98.6F Temporal; 92.08 iw kg; Height 5 ft. 10 in.; BMI: 29.1; Pain 09/03, Adult; iw 19:18 15:17 Pain: Complains of pain in lower extremitites bilat Pain does not radiate. Pain rs5 currently is 5 out of 10 on a pain scale. Quality of pain is described as aching, Pain began 2-3 days ago. Is continuous, rs5 19:20 18:50 Furosemide IVP 80 mg IVP in right antecubital rs5 rs5
[2023-01-30] MEDS ORDERED: ALBUTEROL 2.5 MG/3 ML NEB SOL NEB PRN (18:23)
[2023-01-30] MEDS ORDERED: ONDANSETRON 4 MG/2 ML VIAL IV PRN (18:23)
[2023-01-30] MEDS ORDERED: MORPHINE 2 MG/ML SYR IV PRN (18:23)
[2023-01-30] MEDS ORDERED: D10W 250 ML BAG IV PRN (18:27)
[2023-01-30] MEDS ORDERED: GLUCAGON 1 MG/VIAL IM PRN (18:27)
--- NOTE | 2023-01-30 18:37 | P.HP ---
Certification for Inpatient Patient admitted to: Inpatient With expected LOS: >2 Midnights Patient will require the following post-hospital care: None Practitioner: I am a practitioner with admitting privileges, knowledge of patient current condition, hospital course, and medical plan of care. Services: Services provided to patient in accordance with Admission requirements found in Title 42 Section 412.3 of the Code of Federal Regulations Patient History Date of Service: 01/30/23 History of Present Illness: 72-year-old male with past medical history of CAD status post recent PCI to RCA and status post CABG with patent the ALBERTO graft in 2020 as per the [facility], history of diastolic heart failure chronic with EF of 55% in 2021, hypertension, hyperlipidemia, diabetes, paroxysmal atrial fibrillation on Eliquis, CKD stage II, COPD, hypothyroidism brought to ER with worsening shortness of breath and also bilateral lower extremity swelling which has been progressively worsening over the last few days. Patient started having the symptoms few days ago and has been progressively worsening and has an orthopnea so could not lie down and has been in wheelchair for 2 days now. Denies any fever or chills. No nausea vomiting or diarrhea. Denies any chest pain. Shortness of breath is worse with minimal exertion.. Patient was assessed in the ER and was admitted for further management of CHF exacerbation and NSTEMI associated with acute kidney injury . Allergies povidone-iodine [From Betadine] Allergy (Mild, Verified 10/28/22 11:30) Rash Home medications list reviewed: Yes Home Medications: Albuterol Inhaler [Ventolin Inhaler*] 2 puff IN QID PRN 12/05/21 Albuterol Neb [Proventil 0.083% Neb Soln] 1 puff NEB DAILY PRN 12/05/21 Apixaban [Eliquis *] 1 tab PO BID 12/05/21 Atorvastatin Calcium [Lipitor] 1 tab PO DAILY 12/05/21 Clopidogrel Bisulfate [Plavix*] 1 tab PO DAILY 12/05/21 Furosemide [Lasix*] 1 tab PO BID 12/05/21 Ipratropium/Albuterol Sulfate [Combivent Respimat 20-100 Mcg] 2 puff IN DAILY PRN 12/05/21 Levothyroxine Sodium 1 tab PO DAILY 12/05/21 Linagliptin [Tradjenta] 1 tab PO DAILY 12/05/21 Montelukast [Singulair*] 1 tab PO DAILY 12/05/21 Ropinirole HCl [Requip*] 1 tab PO BEDTIME 12/05/21 Sacubitril/Valsartan [Entresto 24 mg-26 mg Tablet] 1 tab PO BID 12/05/21 Valacyclovir HCl [Valtrex] 1 tab PO DAILY 12/05/21 Potassium Chloride [Klor-Con] 20 meq PO DAILY 08/25/22 carvediloL [Carvedilol] 6.25 mg PO DAILY 08/25/22 - Past Medical/Surgical History Diabetic: No Past Medical History: Reviewed- Non-Contributory -: DM -: COPD -: Hx [place] -: Hx Diffuse Large B Cell Lymphoma (DLBCL) -: Hyperlipidemia -: HTN -: Hypothyroidism -: Osteoarthritis -: drop left ankle Past Surgical History: Reviewed- Non-Contributory -: knee replacement Left -: open heart surgery -: left hip repLACEMENT -: METAL PLATED IN RIGHT ARM - Family History Family History: Reviewed- Non-Contributory - Social History Smoking Status: Former smoker Alcohol use: No CD- Drugs: No Caffeine use: Yes Review of Systems 10-point ROS is otherwise unremarkable General: Weakness, Malaise Eyes: Unremarkable ENT: Unremarkable Respiratory: Shortness of Breath, SOB with Excertion Cardiovascular: Orthopnea, Paroxysmal Noc. Dyspnea, Edema Gastrointestinal: Unremarkable Genitourinary: Unremarkable Musculoskeletal: Unremarkable Integumentary: Unremarkable Neurological: Unremarkable Lymphatics: Unremarkable Physical Examination - Vital Signs Temperature: 97.8 F Blood Pressure: 124/76 Pulse: 78 Respirations: 20 Pulse Ox (%): 98 - Physical Exam General: Alert, Oriented x3, Cooperative, Moderate distress, Obese HEENT: Atraumatic, Normocephalic Neck: Supple, JVD distended Respiratory: Diminished, Crackles/rales, Expiratory wheezes Cardiovascular: Regular rate/rhythm, Normal S1 S2, No gallops, Edema Capillary refill: <2 Seconds Gastrointestinal: Soft and benign, Non-distended, W/out hepatosplenomegaly Musculoskeletal: No clubbing, No swelling Integumentary: No rashes Neurological: Normal strength at 5/5 x4 extr, Normal tone, Cranial nerves 3-12 intact, Normal reflexes 2+, Normal affect Lymphatics: No axilla or inguinal lymphadenopathy - Studies Laboratory Data (last 24 hrs) 01/30/23 01/30/23 16:30 16:30 WBC 7.30 Hgb 12.1 L Hct 37.5 L Plt Count 237 Sodium 139 Potassium 4.3 BUN 54 H Creatinine 2.48 H Glucose 208 H Total Bilirubin 0.3 AST 20 ALT 23 Alkaline Phosphatase 100 Assessment and Plan - Problems (Diagnosis) (1) Acute on chronic diastolic CHF (congestive heart failure) Current Visit: Yes Status: Acute Plan: Monitor closely under telemetry Started on aggressive diuresis Monitor closely ins and outs Last echocardiogram in 2021 showed preserved EF of 55% with diastolic dysfunction We will get a repeat echocardiogram Continued Entresto (2) NSTEMI (non-ST elevated myocardial infarction) Current Visit: Yes Status: Acute Plan: Possibly NSTEMI type II Patient denies any chest pain We will trend cardiac enzymes EKG did not show any signs of acute ischemic changes We will get a cardiology consult if cardiac enzymes trending high Started on Plavix and statin (3) Acute kidney injury Current Visit: Yes Status: Acute Plan: Patient has baseline CKD stage II Renal parameters monitor May need nephrology consult if renal parameters worsening Continued IV diuresis Electrolytes monitor and replace accordingly (4) Atrial fibrillation Current Visit: No Status: Chronic Plan: Paroxysmal A-fib right now in sinus rhythm Rate controlled Continue Eliquis Monitor closely under telemetry (5) CAD (coronary artery disease) Current Visit: No Status: Chronic Plan: History of CABG and PCI Denies any chest pain at this time Cardiac enzymes trended Continue Plavix and statin (6) COPD (chronic obstructive pulmonary disease) Current Visit: No Status: Chronic Plan: Acute hypoxic respiratory failure due to COPD CHF exacerbation Start on bronchodilators Continue home medications and titrate as needed Patient is on oxygen supplementation We will try to wean down oxygen requirement (7) Diabetes Current Visit: No Status: Chronic Plan: Insulin sliding scale We will get an A1c in a.m. Accu-Chek before every meal and at bedtime (8) HTN (hypertension) Current Visit: No Status: Chronic Plan: Continue home medications Titrate antihypertensives (9) Hyperlipidemia Current Visit: No Status: Chronic Plan: Continue statin We will get a lipid panel in a.m. (10) Hypothyroidism Current Visit: No Status: Chronic Plan: Continue Synthroid (11) Osteoarthritis Current Visit: No Status: Chronic Plan: Supportive management (12) Overweight (BMI 25.0-29.9) Current Visit: No Status: Chronic Plan: Advise lifestyle modification Discharge Plan: Home Plan to discharge in: Greater than 2 days - Advance Directives Does patient have a Living Will: No Does patient have a Durable POA for Healthcare: Yes - Code Status/Comfort Care Code Status Assessed: Yes Code Status: Full Code Physician Review: Patient Assessed, Agree with Above Assessment and Plan Time Spent Managing Pts Care (In Minutes): 48
[2023-01-30] MEDS ORDERED: ASPIRIN 81 MG CHEWABLE TABLET ONE (19:04)
[2023-01-30] MEDS ORDERED: FUROSEMIDE 40 MG/4 ML VIAL ONE (19:05)
[2023-01-30] MEDS: IPRATROPIUM BROM 0.5MG/2.5ML NEB SCH (20:00)
[2023-01-30] MEDS: INSULIN REGULAR (HUMAN) 100 UNIT/ML SQ SCH (21:00)
[2023-01-30] MEDS: SACUBITRIL/VALSARTAN 24/26 MG TAB PO SCH (21:00)
[2023-01-30] MEDS ORDERED: IPRATROPIUM BROM 0.5MG/2.5ML ONE (21:19)
[2023-01-30 22:28] LABS: Blood Morphology Comment NOT SEEN (NOT SEEN); Platelet Estimate ADEQ
[2023-01-30] MEDS: ROPINIROLE HCL 1 MG TAB PO SCH (23:23)
[2023-01-30] MEDS: APIXABAN 2.5 MG TABLET PO SCH (23:23)
[2023-01-30] MEDS: FUROSEMIDE 40 MG/4 ML VIAL IV SCH (23:23)
[2023-01-31] MEDS: FUROSEMIDE 40 MG/4 ML VIAL IV SCH ×3 (01:00→16:42)
[2023-01-31] MEDS: IPRATROPIUM BROM 0.5MG/2.5ML NEB SCH ×4 (02:00→19:40)
[2023-01-31 02:29] LABS: Absolute Lymphocytes (CBC) 1.1 K/uL (0.7-4.9); MCV 89.3 fL (80-100); MPV 7.6 fL (7.6-11.3); Platelets 204 thou/uL (152-406); RBC Red Blood Cell Count 3.81 M/uL (4.33-5.43)
[2023-01-31 02:37] LABS: Bilirubin Total 0.2 mg/dL (0.2-1.0); Potassium 4.6 mEq/L (3.5-5.1); Protein, Total 6.3 g/dL (6.4-8.2)
[2023-01-31] MEDS: ACETAMINOPHEN 500 MG TAB PO PRN ×2 (03:10→13:14)
[2023-01-31] MEDS: LEVOTHYROXINE SOD 0.025 MG TAB PO SCH (05:44)
[2023-01-31] MEDS: INSULIN REGULAR (HUMAN) 100 UNIT/ML SQ SCH ×4 (07:30→21:00)
[2023-01-31] MEDS ORDERED: carvediloL 6.25 MG TAB PO SCH (09:00)
[2023-01-31] MEDS: SACUBITRIL/VALSARTAN 24/26 MG TAB PO SCH ×2 (09:00→21:00)
[2023-01-31] MEDS: carvediloL 6.25 MG TAB PO SCH ×2 (09:00→21:00)
[2023-01-31] MEDS: VALACYCLOVIR 500 MG TAB PO SCH (09:00)
[2023-01-31] MEDS: CLOPIDOGREL 75 MG TABLET PO SCH (10:20)
[2023-01-31] MEDS: MONTELUKAST 10 MG TAB PO SCH (10:20)
[2023-01-31] MEDS: APIXABAN 2.5 MG TABLET PO SCH ×2 (10:20→21:20)
--- NOTE | 2023-01-31 10:36 | RAD REPORT ---
EXAM DESCRIPTION: USExtrem Venous W Compress Bil01/31/2023 10:13 am CLINICAL HISTORY: Leg edema COMPARISON: 2021 FINDINGS: The common femoral, superficial femoral, greater saphenous, popliteal and posterior tibial veins bilaterally are compressible and demonstrate augmentation. Doppler demonstrates good flow. 4 centimeter left Dowling's cyst Grayscale, color and spectral analysis performed on all vessels IMPRESSION: No evidence of deep venous thrombosis involving either lower extremity. 4 centimeter left Dowling's cyst
--- NOTE | 2023-01-31 10:37 | RAD REPORT ---
EXAM DESCRIPTION: US - Lower Extremity Arterial Bilat - 01/31/2023 10:13 am CLINICAL HISTORY: Leg pain COMPARISON: 2021 FINDINGS: Right common femoral and right superficial femoral arterial waveform is biphasic Right popliteal arterial waveform triphasic Right posterior tibial arterial waveform monophasic and diminished in amplitude. Right dorsalis pedis arterial waveform monophasic Left common femoral, left superficial femoral arterial waveform is biphasic. Left posterior tibial, left popliteal and left dorsalis pedis arterial waveform is monophasic Grayscale, color and spectral analysis performed on all vessels IMPRESSION: Moderate disease involving the distal right lower extremity arteries Moderate disease involving the mid and distal left lower extremity arteries No high-grade proximal stenosis visualized
[2023-01-31] MEDS: ATORVASTATIN 40 MG TAB PO SCH (10:53)
--- NOTE | 2023-01-31 20:12 | PN ---
Date of Progress Note: 01/31/2023 Subjective: The patient was seen this morning for followup. Yesterday, he came into emergency room and after he was evaluated in the ER, he was admitted to the hospital. ER physician did not recogniz e that this was my patient and he ended up admitting patient to hospitalist service and hospitalist flash gutierrez also did not recognize that this was my patient. This morning, I saw the patient for followup and I have reviewed current hospital records. The patient reports having bilateral leg swelling and blisters on his legs. He also has some shortness of breath with activity. He has some cough, which is actually chronic problem. Objective: Vital Signs: This morning, temperature 97.5, pulse 79, respiratory rate 18, blood pressu re 140/75. HEENT: Unremarkable. Lungs: Bilateral good equal air entry with presence of some rales noted in lung bases. Not in respi ratory distress. Heart: Sounds normal. Abdomen: Soft. Bowel sounds normal. No guarding, rigidity, tenderness, distention. Extremities: Bilateral grade 2 pedal edema. Laboratory Data: White count 7.7, hemoglobin 11, platelets 204. Sodium 140, potassium 4.6, chloride 113, bicarb 25, BUN 55, creatinine 2.41 glucose 124. Troponin 129 on the first set, second set 117. 9, last set 107. Impression: 1.Chronic systolic heart failure, with acute exacerbation. 2.Chronic kidney disease stage 3 B. 3.Anemia due to chronic kidney disease. 4.Hypertension. 5.Hyperlipidemia. 6.Chronic anticoagulation therapy. 7.Type 2 diabetes mellitus, uncontrolled. 8.Osteoarthritis, multiple sites. 9.Coronary artery disease. 10.Restless legs syndrome. Plan: We will go ahead and get an echo with Doppler; daily intake, output; daily weight; and we will get arterial and venous Doppler of lower extremities. Consult [facility]. I did request consultation from Dr. Cullen, but he is out of town, so he will try to help us with the wound care man agement with help of Wound Healing nurse. We will give IV Lasix per order. Monitor electrolytes, re nal function, and I will see him tomorrow for followup. ANNA/MODL Voice ID: [id number] Report ID: [id number]
[2023-01-31] MEDS: ROPINIROLE HCL 1 MG TAB PO SCH (21:20)
[2023-02-01] MEDS: FUROSEMIDE 40 MG/4 ML VIAL IV SCH ×3 (01:00→21:11)
[2023-02-01] MEDS: IPRATROPIUM BROM 0.5MG/2.5ML NEB SCH ×4 (02:00→20:40)
[2023-02-01] MEDS: LEVOTHYROXINE SOD 0.025 MG TAB PO SCH (06:31)
[2023-02-01] MEDS: PANTOPRAZOLE 40MG TABLET PO SCH (06:31)
--- NOTE | 2023-02-01 07:18 | ECHO ---
HEIGHT: 5 ft 10 in WEIGHT: 216 lb 6 oz DATE OF STUDY: 01/31/[address]: Ray Veliz MD 2-DIMENSIONAL: YES M.MODE: YES DOPPLER: YES COLOR FLOW: YES TDS: YES PORTABLE: YES DEFINITY: BUBBLE STUDY: DIAGNOSIS: CONGESTIVE HEART FAILURE CARDIAC HISTORY: CATHERIZATION: YES SURGERY: YES PROSTHETIC VALVE: NO PACEMAKER: NO MEASUREMENTS (cm) DIASTOLIC (NORMALS) SYSTOLIC (NORMALS) IVSd 1.0 (0.6-1.2) LA Diam 3.7 (1.9-4.0) LVEF 61% LVIDd 3.9 (3.5-5.7) LVIDs 2.6 (2.0-3.5) %FS 32% LVPWd 1.1 (0.6-1.2) Ao Diam 3.0 (2.0-3.7) 2 DIMENSIONAL ASSESSMENT: RIGHT ATRIUM: ENLARGED LEFT ATRIUM: ENLARGED RIGHT VENTRICLE: NORMAL LEFT VENTRICLE: NORMAL TRICUSPID VALVE: MODERATE TRICUSPID REGURGITATION MITRAL VALVE: NORMAL PULMONIC VALVE: MODERATE PULMONIC INSUFFICIENCY AORTIC VALVE: NORMAL PERICARDIAL EFFUSION: NONE AORTIC ROOT: NORMAL LEFT VENTRICULAR WALL MOTION: NORMAL DOPPLER/COLOR FLOW: SEE BELOW COMMENTS: 1. NORMAL LEFT VENTRICULAR EJECTION FRACTION 55-60% 2. DIASTOLIC DYSFUNCTION 3. MODERATE TRICUSPID REGURGITATION 4. MODERATE PULMONIC INSUFFICIENCY 5. BI-ATRIAL ENLARGEMENT 6. MODERATE PULMONARY HYPERTENSION WITH RIGHT VENTRICULAR SYSTOLIC PRESSURE OF 55-60 mmHg TECHNOLOGIST: JODEE LEA
[2023-02-01] MEDS: INSULIN REGULAR (HUMAN) 100 UNIT/ML SQ SCH ×4 (07:30→21:00)
[2023-02-01 08:47] LABS: Absolute Lymphocytes (CBC) 1.1 K/uL (0.7-4.9); Hematocrit 35.9 % (39.6-49.0); Lymphocytes % 13.1 % (15.3-44.8); MCV 89.3 fL (80-100); MPV 7.4 fL (7.6-11.3); Platelets 220 thou/uL (152-406); RBC Red Blood Cell Count 4.02 M/uL (4.33-5.43)
[2023-02-01] MEDS: carvediloL 6.25 MG TAB PO SCH ×2 (08:53→21:12)
[2023-02-01] MEDS: ATORVASTATIN 40 MG TAB PO SCH (08:53)
[2023-02-01] MEDS: SACUBITRIL/VALSARTAN 24/26 MG TAB PO SCH ×2 (08:54→21:12)
[2023-02-01] MEDS: VALACYCLOVIR 500 MG TAB PO SCH ×2 (08:55→14:21)
[2023-02-01 09:05] LABS: Magnesium 2.5 mg/dL (1.6-2.4); Potassium 4.3 mEq/L (3.5-5.1); Thyroid Stimulating Hormone 1.35 uIU/mL (0.358-3.740)
[2023-02-01] MEDS: MONTELUKAST 10 MG TAB PO SCH (09:10)
[2023-02-01] MEDS: APIXABAN 2.5 MG TABLET PO SCH ×2 (09:10→21:13)
[2023-02-01] MEDS: SILVER SULFADIAZINE 1% 50 GM TOP SCH (14:21)
--- NOTE | 2023-02-01 20:13 | PN ---
Date of Progress Note: 02/01/2023 Subjective: The patient was seen this morning for followup. Denies any new complaints. His chronic cough problem remains unchanged. Denies any shortness of breath at rest. Objective: Vital Signs: Reviewed. HEENT: Unremarkable. Lungs: Bilateral good equal air entry with presence of basal rales and diminished air entry in the l eft lung base. Not using accessory muscles of respiration. Heart: Sounds normal. Abdomen: Soft. Bowel sounds normal. No guarding, rigidity, tenderness, distention. Extremities: Bilateral leg edema unchanged. Laboratory Data: Echocardiogram done yesterday shows ejection fraction 61% and diastolic dysfunction . The patient's ejection fraction has improved compared to prior echocardiogram. His venous Doppler was negative for DVT and arterial Doppler showed moderate disease in both lower extremities, no high -grade stenosis. Impression: 1.Chronic systolic heart failure with acute exacerbation. 2.Chronic diastolic heart failure with acute exacerbation. 3.Hypertension. 4.Type 2 diabetes mellitus. 5.Chronic obstructive pulmonary disease. Plan: We will go ahead and continue to follow up with wound healing nurse and the patient will follo w up with Dr. Cullen on outpatient basis. I have reduced dose of Lasix from 40 mg IV every 8 hours to every 12 hours. We will continue to monitor electrolytes and renal function. I will see him tomorr ow for followup, possible discharge to go home in next 1 or 2 days and details were discussed with th e patient. Continue Entresto and anticoagulation therapy as he is taking. Monitor intake, output, and daily weight. ANNA/MODL Voice ID: [id number] Report ID: [id number]
[2023-02-01] MEDS: ROPINIROLE HCL 1 MG TAB PO SCH (21:12)
[2023-02-02] MEDS: IPRATROPIUM BROM 0.5MG/2.5ML NEB SCH ×2 (01:03→07:25)
[2023-02-02] MEDS: ACETAMINOPHEN 500 MG TAB PO PRN (03:23)
[2023-02-02 05:01] VITALS: BMI 30.6
[2023-02-02] MEDS: PANTOPRAZOLE 40MG TABLET PO SCH (05:26)
[2023-02-02] MEDS: LEVOTHYROXINE SOD 0.025 MG TAB PO SCH (05:27)
[2023-02-02 07:02] LABS: Absolute Lymphocytes (CBC) 1.3 K/uL (0.7-4.9); Hematocrit 34.4 % (39.6-49.0); Lymphocytes % 17.3 % (15.3-44.8); MCV 89.1 fL (80-100); MPV 7.4 fL (7.6-11.3); Platelets 220 thou/uL (152-406); RBC Red Blood Cell Count 3.86 M/uL (4.33-5.43)
[2023-02-02 07:16] LABS: Magnesium 2.5 mg/dL (1.6-2.4); Potassium 4.1 mEq/L (3.5-5.1)
[2023-02-02] MEDS: INSULIN REGULAR (HUMAN) 100 UNIT/ML SQ SCH (07:30)
[2023-02-02] MEDS ORDERED: METOLAZONE 2.5 MG TABLET PO ONE (08:15)
[2023-02-02 08:43] VITALS: BP 109/59; TEMP 97.3
[2023-02-02] MEDS: APIXABAN 2.5 MG TABLET PO SCH (08:53)
[2023-02-02] MEDS: ATORVASTATIN 40 MG TAB PO SCH (08:53)
[2023-02-02] MEDS: SACUBITRIL/VALSARTAN 24/26 MG TAB PO SCH (08:53)
[2023-02-02] MEDS: CLOPIDOGREL 75 MG TABLET PO SCH (08:53)
[2023-02-02] MEDS: carvediloL 6.25 MG TAB PO SCH (08:54)
[2023-02-02] MEDS: FUROSEMIDE 40 MG/4 ML VIAL IV SCH (08:55)
[2023-02-02] MEDS: SILVER SULFADIAZINE 1% 50 GM TOP SCH (08:57)
[2023-02-02] MEDS: VALACYCLOVIR 500 MG TAB PO SCH (09:00)
[2023-02-02] MEDS: MONTELUKAST 10 MG TAB PO SCH (09:02)
[2023-02-02 09:26] VITALS: O2SAT 92
--- NOTE | 2023-02-02 19:21 | DS ---
Date of Discharge: 02/02/2023 Disposition: Discharged to go home. Physical Examination: HEENT: Unremarkable. Lungs: Clear to auscultation. Heart: Sounds normal. Abdomen: Soft. Bowel sounds normal. No guarding, rigidity, tenderness, distention. Extremities: Bilateral leg edema present, but better than what it was [facility]. His leg edema is still grade 2 in both legs. Discharge Medications And Instructions: 1.Continue all prior home medication. 2.Start metolazone 2.5 mg, take 1 tablet by mouth once a week starting next week on 02/08/2023 and p rescription was sent to his pharmacy for 4 tablets. 3.Follow up at my office next week. Laboratory Data: Today, CBC shows white count 7.6, hemoglobin 11.1, platelets 220. Sodium 138, pota ssium 4.1, chloride 106, bicarb 28, BUN 61, creatinine 1.94, glucose 131. Hospital Course: This is a 72-year-old pleasant male patient, admitted to the hospital with bilatera l leg swelling and blisters on his legs. Please see dictated H and P for more information. After e patient was evaluated and admitted to the hospital, he was started on IV diuretic therapy. He has chronic systolic heart failure with low ejection fraction and takes his medication including furosemi de and Entresto on regular basis. He was given IV Lasix. Intake, output, and daily weight was monit ored. Electrolytes and renal function was monitored. [facility] He normall y [facility] and he was encouraged to follow up with Dr[facility] Cullen [facility] next week. Echocardiogram was done during this hospitalization and his ejection fraction has improved to normal now. Overall, his condition has improved and today he was discharged to go back home in stable and improved condition with above-mentioned medications and instructions. Final Diagnoses: 1.Congestive heart failure, chronic, systolic, with acute exacerbation. 2.Hypertension. 3.Type 2 diabetes mellitus with chronic kidney disease. 4.Hyperlipidemia. 5.Chronic kidney disease, stage IIIB. 6.Anemia due to chronic kidney disease. 7.Chronic anticoagulation therapy. 8.Chronic atrial fibrillation. ANNA/MODL Voice ID: [id number] Report ID: [id number]
--- NOTE | 2023-02-04 14:29 | EKG ---
Test Date: 2023-01-30 Test Time: 17:37:29 Manager Endoscopy: A006 MEASUREMENT RESULTS: Intervals: Rate: 62 ME: QRSD: 158 QT: 430 QTc: 436 [place]: P: ME: QRS: -66 T: -32 INTERPRETIVE STATEMENTS: Atrial fibrillation Left axis deviation Right bundle branch block Inferior infarct, age undetermined Anterolateral infarct, age undetermined Abnormal ECG Compared to ECG 01/30/2023 17:36:52 No significant changes Electronically Signed On 02-04-23 14:16:40 PRESS HAND by Orville Pena
--- NOTE | 2023-02-04 14:30 | EKG ---
Test Date: 2023-01-30 Test Time: 17:36:52 [employer] Day Worker: A006 MEASUREMENT RESULTS: Intervals: Rate: 65 [place]: QRSD: 154 QT: 420 QTc: 436 [place]: P: [place]: QRS: -69 T: -18 INTERPRETIVE STATEMENTS: Atrial fibrillation Left axis deviation Right bundle branch block Inferior infarct, age undetermined Anterolateral infarct, age undetermined Abnormal ECG Compared to ECG 05/19/2022 13:45:49 T-wave abnormality no longer present Possible ischemia no longer present Myocardial infarct finding still present Electronically Signed On 02-04-23 14:16:43 HOOP PUNCHER by Orville Pena
== END 2023-02-02 11:29 | disposition home or self-care (01) | DRG 280 ==
LOC: ER 14:52 → ERHOLD 18:23 → 2ND 20:07
PROVIDERS: ADMIT Internal Medicine; ATTEND Internal Medicine
DX: I13.0 Hypertensive heart and chronic kidney disease with heart failure and stage 1 through stage 4 chronic kidney disease, or unspecified chronic kidney disease (principal); I50.23 Acute on chronic systolic (congestive) heart failure; I21.A1 Myocardial infarction type 2; J96.01 Acute respiratory failure with hypoxia; N17.9 Acute kidney failure, unspecified; L97.829 Non-pressure chronic ulcer of other part of left lower leg with unspecified severity; L97.819 Non-pressure chronic ulcer of other part of right lower leg with unspecified severity; N18.32 Chronic kidney disease, stage 3b; E11.22 Type 2 diabetes mellitus with diabetic chronic kidney disease; D63.1 Anemia in chronic kidney disease; E03.9 Hypothyroidism, unspecified; I48.0 Paroxysmal atrial fibrillation; E78.5 Hyperlipidemia, unspecified; E66.3 Overweight; M19.09 Primary osteoarthritis, other specified site; G25.81 Restless legs syndrome; I45.10 Unspecified right bundle-branch block; J44.9 Chronic obstructive pulmonary disease, unspecified; I25.2 Old myocardial infarction; I25.10 Atherosclerotic heart disease of native coronary artery without angina pectoris; Z95.1 Presence of aortocoronary bypass graft; Z86.73 Personal history of transient ischemic attack (TIA), and cerebral infarction without residual deficits; Z79.02 Long term (current) use of antithrombotics/antiplatelets; Z68.30 Body mass index [BMI] 30.0-30.9, adult; Z79.01 Long term (current) use of anticoagulants; Z91.048 Other nonmedicinal substance allergy status; Z79.899 Other long term (current) drug therapy; Z79.890 Hormone replacement therapy; Z96.652 Presence of left artificial knee joint; Z96.642 Presence of left artificial hip joint; Z87.891 Personal history of nicotine dependence
CPT/HCPCS: 36415; 71045; 80048; 80053; 80061; 82947; 83735; 83880; 84443; 84484; 85025; 93005; 93306; 93925; 93970; 94010; 94760; 96374; 99285; J1815; J1940; J7613; J7644

== ENCOUNTER → 2023-04-18 | Emergency (ER) | payer OTHER ==
[~2023-04-18] MED LIST: ALBUMIN HUMAN 25% 100 ML IV ONE; HYDROCODONE/APAP 5/325 MG TAB ONE; IBUPROFEN 200 MG TAB PO ONE; IBUPROFEN 400 MG TAB ONE; MORPHINE 4 MG/ML SYR ONE; NA CHLORIDE 0.9% 1,000 ML ONE; ONDANSETRON 4 MG (ODT) TAB ONE; ONDANSETRON 4 MG/2 ML VIAL ONE
--- OUTSIDE RECORDS SUMMARY | 2023-04-18 00:13 | XMS REPORT | Clinical Summary ---
Author Name Unknown Organization [facility] Address [address] [place] [address] Care Team Providers Care Tab Builder Name Role Phone Ray Veliz MD Unavailable [phone] Dru Smith MD Primary Care Provider [phone] Allergies Active Allergy Reactions Criticality Noted Date Comments Povidone-Iodine Rash Low 09/16/2020 Medications Medication Sig Dispensed Refills Start Date End Date Status albuterol (VENTOLIN HFA,PROAIR HFA) 90 mcg/puff inhaler Inhale 1-2 puffs by mouth every 6 (six) hours as needed for wheezing or shortness of breath. 0 10/05/2019 Active atorvastatin (LIPITOR) 80 mg tablet TAKE 1 TABLET BY MOUTH DAILY AT BEDTIME 0 07/07/2020 Active clopidogrel (PLAVIX) 75 mg tablet TAKE 1 TABLET BY MOUTH DAILY 0 07/17/2020 Active levocetirizine (XYZAL) 5 MG tablet Take 5 mg by mouth every evening. 0 10/10/2019 Active levothyroxine (SYNTHROID, LEVOTHROID) 25 mcg tablet TAKE 1 TABLET BY MOUTH DAILY 0 07/02/2020 Active Tradjenta 5 mg tab Take 5 mg by mouth daily. 0 07/02/2020 Active montelukast (SINGULAIR) 10 mg tablet TAKE 1 TABLET BY MOUTH DAILY 0 07/17/2020 Active pantoprazole (PROTONIX) 40 mg EC tablet Take 40 mg by mouth daily with breakfast. 0 01/29/2020 Active potassium chloride (MICRO-K) 10 mEq CR capsule Take 10 mEq by mouth daily. Hold for serum potassium greater than 4.5 mEq/L 0 07/17/2020 Active rOPINIRole (REQUIP) 1 mg tablet Take 1 mg by mouth 2 (two) times a day as needed (restless legs). 0 06/17/2020 Active traMADol (ULTRAM) 50 mg tablet TAKE 1 TABLET BY MOUTH THREE TIMES DAILY NEEDED FOR PAIN 0 09/02/2020 Active senna-docusate (sennosides-docusat e sodium) 8.6 mg-50 mg tablet Take 1 tablet by mouth twice daily. Hold for loose stools. 0 Active sodium chloride-sodium bicarbonate (SALT AND SODA) mouthwashIndication s:Diffuse high grade B-cell lymphoma Swish and spit 10 mL every 6 (six) hours. Use 2 teaspoonfuls and dissolve in 1 quart (960 mL) of warm water. To prevent mouth sores 0 09/21/2020 Active ondansetron (Zofran) 8 mg tabletIndications:D iffuse high grade B-cell lymphoma Take 1 tablet (8 mg) by mouth every 8 (eight) hours as needed for nausea or vomiting (first choice). 30 tablet 2 09/21/2020 Active prochlorperazine (Compazine) 5 mg tabletIndications:D iffuse high grade B-cell lymphoma Take 1 tablet (5 mg) by mouth every 6 (six) hours as needed for nausea or vomiting. 60 tablet 2 09/21/2020 Active valACYclovir (VALTREX) 500 mg tabletIndications:D iffuse high grade B-cell lymphoma Take 1 tablet (500 mg) by mouth daily. To prevent viral infections. 30 tablet 5 09/21/2020 Active apixaban (ELIQUIS) 5 mg tabletIndications:D iffuse high grade B-cell lymphoma Take 1 tablet (5 mg) by mouth every 12 (twelve) hours. 0 11/04/2020 Active ipratropium-albuter ol (DUO-NEB) 0.5 mg-2.5 mg/3 mL nebulizer solutionIndications :Acute respiratory failure with hypoxia Inhale 1 vial (3 mL) by nebulization every 6 (six) hours. 0 11/04/2020 Active metoprolol tartrate (LOPRESSOR) 25 mg tabletIndications:D iffuse high grade B-cell lymphoma Take 1 tablet (25 mg) by mouth every 12 (twelve) hours. Hold for systolic blood pressure less than 110 mmHg or heart rate less than 60 beats per minute. 0 11/04/2020 Active torsemide (DEMADEX) 20 mg tabletIndications:D iffuse high grade B-cell lymphoma Take 1 tablet (20 mg) by mouth daily. Hold for systolic blood pressure less than 110 mmHg. 0 11/05/2020 Active entecavir (BARACLUDE) 0.5 mg tabletIndications:H epatitis B carrier Take 1 tablet (0.5 mg) by mouth every 72 hours. To prevent viral infection 10 tablet 2 11/13/2020 Active Active Problems Problem Noted Date Diagnosed Date Paroxysmal atrial fibrillation 03/16/2021 Last Assessment & Plan: Patient was seen by inpatient rickshaw driver in September 2020 for atrial fibrillation with last EKG done October 28, 2020 showing return to sinus rhythm. Patient is asymptomatic for palpitations or irregular heartbeats. He is currently on carvedilol 6.25 mg p.o. twice daily in addition to Eliquis 5 mg p.o. twice daily with no bleeding problems. Unfortunately patient [place] [address] from [facility] therefore we do not have any updated labs nor EKG since his visit in October. Patient will continue his current regimen and I have confirmed that he has established a follow-up with his local rickshaw driver in March for further management. Clostridioides difficile infection 11/02/2020 Acute respiratory failure with hypoxia 1 Pneumonia due to other specified bacteria 2020 Severe sepsis with septic shock 09/29/2020 Bilateral pneumonia 09/29/2020 Anemia in malignant neoplastic disease 1 Chronic obstructive pulmonary disease 09/16/2020 Diffuse high grade B-cell lymphoma 09/16/2020 Cancer Staging:Clinical:Stage III(IPI: Score 3) - Unsigned Mass of neck 09/07/2020 History of myocardial infarction 09/07/2020 History of placement of stent for coronary arter y disease 09/07/2020 Hepatitis B carrier History of hepatitis C Long-term current use of rituximab Patient immunocompromised Acute injury of kidney Hyperuricemia Chronic right-sided heart failure Last Assessment & Plan: Echocardiogram done November 06, 2020 shows patient has preserved ejection fraction of 50% but evidence of right ventricular systolic function being reduced with elevated RVSP. Right heart catheterization done 11/02/2020 showed evidence of mild pulmonary hypertension with a pulmonary capillary wedge pressure of 11 mmHg. Patient continues to have problems with productive cough, chronic shortness of breath and orthopnea for which he is on furosemide 80 mg p.o. twice daily. I explained [...] daily. Bloodstream infection due to central venous cath eter Pneumonia due to Pseudomonas Sepsis caused by Pseudomonas aeruginosa Acute kidney failure with lesion of tubular necr osis Persistent atrial fibrillation Toxic metabolic encephalopathy Ischemic cardiomyopathy Chronic systolic congestive heart failure Other secondary thrombocytopenia Other elevated white blood cell count Electrolyte and fluid disorders not elsewhere cl assified Surgical History Surgery Date Site/Laterality Comments KNEE SURGERY left knee ANKLE SURGERY left ankle PARTIAL HIP ARTHROPLASTY left hip CORONARY ARTERY BYPASS GRAFT Medical History Medical History Date Comments Myocardial infarction Prediabetes Hypertension Hyperlipidemia Foot-drop left foot drop, since Bacteremia 09/29/2020 pseudomonas Social History Tobacco Use Types Packs/Day Years Used Date Smoking Tobacco: Former Cigarettes 3 50 Smokeless Tobacco: Never Tobacco Cessation:Counseling Given: Yes Comments:stopped smoking 15 years ago Alcohol Use Standard Drinks/Week Comments Not Currently 0 (1 standard drink = 0.6 oz pur e alcohol) Sex and Gender Information Value Date Recorded Sex Assigned at Not on file Gender Identity Not on file Sexual Orientation Not on file Job Start Date Occupation Industry Not on file Not on file Not on file Obstetrics History Plan of Treatment Health Maintenance Due Date Last Done Comments COVID-19 Vaccination (#1) 04/10/1951 Medical Devices Implanted Type Area Production Sorter Device Identifier Shelf Expiration Date Model / Serial / Lot Metalware Metalware Right: Arm Description:pt sts he has a metal ryan in r arm Stent Stent Heart Advance Directives Documents on File Type Date Recorded Patient Family Practitioner Expl anation Advance Directives: Medical Power of Application Lead 11/02/2020 Medical Power of Att orney Latest Code Status on File Code Status Date Activated Date Inactivated Comments Full Code 10/07/2020 12:02 PM 11/14/2020 4:41 PM Code Status History Code Status Date Activated Date Inactivated Comments Full Code 09/17/2020 12:45 PM 09/23/2020 7:59 PM Care Teams Tab Builder Relationship Specialty Start Date End Date Ray Veliz MD [address] [place] [address] PCP - External Referring Internal Medicine 09/03/20 Dru Smith MD [address] [place] [address] PCP - General Lymphoma and Myeloma 09/16/20
[2023-04-18 01:38] LABS: Absolute Lymphocytes (CBC) 1.3 K/uL (0.7-4.9); Hematocrit 36.5 % (39.6-49.0); MPV 7.5 fL (7.6-11.3); Platelets 198 thou/uL (152-406); RBC Red Blood Cell Count 4.15 M/uL (4.33-5.43)
[2023-04-18 01:40] LABS: Potassium 4.2 mEq/L (3.5-5.1)
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
[2023-04-18 04:39] LABS: Albumin 3.6 g/dL (3.4-5.0); Bilirubin Direct 0.2 mg/dL (0-0.2); Bilirubin Indirect, Calculated 0.5 mg/dL (0.2-0.8); Bilirubin Total 0.7 mg/dL (0.2-1.0)
[2023-04-18 04:41] LABS: Troponin High Sensitivity 187.9 pg/mL (<58.9)
[2023-04-18 08:45] VITALS: BP 90/60; TEMP 98.6; O2SAT 98
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
== END ==
LOC: ER 00:09
DX: S06.6X0A Traumatic subarachnoid hemorrhage without loss of consciousness, initial encounter (principal); S20.211A Contusion of right front wall of thorax, initial encounter; S26.91XA Contusion of heart, unspecified with or without hemopericardium, initial encounter; D68.9 Coagulation defect, unspecified; R79.89 Other specified abnormal findings of blood chemistry; J44.9 Chronic obstructive pulmonary disease, unspecified; I25.2 Old myocardial infarction; Z86.73 Personal history of transient ischemic attack (TIA), and cerebral infarction without residual deficits; Z88.3 Allergy status to other anti-infective agents; Z88.8 Allergy status to other drugs, medicaments and biological substances
CPT/HCPCS: 96365; 87040 ×2; 85025; 80048; 36415; 86900; 86850; 86901; 80076; 83605; 84484; 83690; 83880; 86140; 70450; 71250; 72125; 71045; 96375; 99285; 96366; Q0162; J2405; P9047 ×2; J7030 ×2

== ENCOUNTER 2023-06-25 10:50 | Emergency (ER) | payer OTHER ==
--- OUTSIDE RECORDS SUMMARY | 2023-06-25 10:53 | XMS REPORT | Clinical Summary ---
Author Name Unknown Organization [facility] [place] Address [address] [place] [address] Care Team Providers Care Swim Coach Name Role Phone Ray Veliz MD Unavailable [phone] Dru Smith MD Primary Care Provider [phone] Allergies Active Allergy Reactions Criticality Noted Date [...] & Plan: Patient was seen by inpatient student development dean in September 2020 for atrial fibrillation with last EKG done October 28, 2020 showing return to sinus rhythm. Patient is asymptomatic for palpitations or irregular heartbeats. He is currently on carvedilol 6.25 mg p.o. twice daily in addition to Eliquis 5 mg p.o. twice daily with no bleeding problems. Unfortunately patient lives [place] from [facility] therefore we do not have any updated labs nor EKG since his visit in October. Patient will continue his current regimen and I have confirmed that he has established a follow-up with his local student development dean in March for further management. 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 Expl anation Advance Directives: Medical Power of Learning Specialist 11/02/2020 Medical Power of Att orney Latest Code Status on File Code Status Date Activated Date Inactivated Comments Full Code 10/07/2020 12:02 PM 11/14/2020 4:41 PM Code Status History Code Status Date Activated Date Inactivated Comments Full Code 09/17/2020 12:45 PM 09/23/2020 7:59 PM Care Teams Swim Coach Relationship Specialty Start Date End Date Ray Veliz MD [address] [place] [address] PCP - External Referring Internal Medicine 09/03/20 Dru Smith MD [address] [place] [address] PCP - General Lymphoma and Myeloma 09/16/20
[2023-06-25] MEDS ORDERED: FUROSEMIDE 40 MG/4 ML VIAL ONE (11:11)
[2023-06-25] MEDS ORDERED: ACETAMINOPHEN 500 MG TAB ONE (11:11)
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
--- NOTE | 2023-06-25 13:03 | EDPHYS ---
Physician Documentation [facility] Name: Valerio Berg Age: 72 yrs Sex: Male : 1950 Arrival Date: 06/25/2023 Time: 10:50 Bed 18 Private MD: ED Physician Jana Barnard HPI: 06/24 11:06 This 72 yrs old Black Male presents to ER via Unassigned with complaints of leg pain. sb4 17:30 Patient presents with complaints of right ankle pain. He denies any injury. He does sb4 have a history of congestive heart failure in which she takes furosemide and endorses bilateral lower extremity edema today. he has no other complaints at this time. Historical: - Allergies: 11:09 Betadine; mb9 11:09 Povidone-Iodine; mb9 - Home Meds: 11:09 Furosemide Oral [Active]; inhaler [Active]; mb9 - PMHx: 11:09 Borderline Diabetes; CVA; Hypothyroidism; Myocardial infarction; COPD; mb9 - Immunization history:: Adult Immunizations up to date. - Social history:: Smoking status: Patient reports the use of cigarette tobacco products. ROS: 17:30 Constitutional: Negative for fever, chills, and weight loss, sb4 17:30 Cardiovascular: Positive for edema, 17:30 MS/extremity: Positive for pain, of the right ankle, 17:30 All other systems are negative, Exam: 17:30 Constitutional: This is a well developed, well nourished patient who is awake, alert, sb4 and in no acute distress. Head/Face: Normocephalic, atraumatic. Eyes: Extra-ocular motions intact. Periorbital areas with no swelling, redness, or edema. ENT: Mucous membranes moist. Cardiovascular: Regular rate and rhythm with a normal S1 and S2. Respiratory: Lungs have equal breath sounds bilaterally, clear to auscultation and percussion. No rales, rhonchi or wheezes noted. No increased work of breathing, no retractions or nasal flaring. Abdomen/GI: Soft, non-tender, no distension. Skin: Warm, dry with normal turgor. Normal color with no rashes, no lesions, and no evidence of cellulitis. MS/ Extremity: Pulses equal, no cyanosis. Neurovascular intact. Full, normal range of motion. Neuro: Awake and alert, GCS 15, oriented to person, place, time, and situation. Motor strength 5/5 in all extremities. Sensory grossly intact. 17:30 Cardiovascular: Edema: pedal edema, that is moderate, ankle edema, that is moderate, Vital Signs: 11:15 BP 159 / 92; Pulse 78; Resp 18; Temp 98.2; Pulse Ox 98% on R/A; Weight 88.45 kg; Height mb9 5 ft. 9 in. ; 13:17 BP 157 / 87; Pulse 74; Resp 18; Pulse Ox 98% ; mb9 11:15 Body Mass Index 28.80 (88.45 kg, 175.26 cm) mb9 MDM: 11:00 Patient medically screened. sb4 17:30 Data reviewed: vital signs, nurses notes, lab test result(s), radiologic studies, and sb4 as a result, I will discharge patient. Counseling: I had a detailed discussion with the patient and/or guardian regarding the historical points, exam findings, and any diagnostic results supporting the discharge/admit diagnosis, radiology results, the need for outpatient follow up, for definitive care, to return to the emergency department if symptoms worsen or persist or if there are any questions or concerns that arise at home. 06/24 11:01 Order name: Chest Single View XRAY; Complete Time: 12:59 sb4 06/24 11:01 Order name: IV Start; Complete Time: 11:32 sb4 Administered Medications: 11:15 Drug: Acetaminophen PO 1000 mg PO once Route: PO; mb9 12:09 Follow up: Response: No adverse reaction mb9 11:32 Drug: Furosemide IVP 40 mg IVP once; give over 2 minutes Route: IVP; Site: right mb9 antecubital; 12:09 Follow up: Response: No adverse reaction mb9 13:17 Drug: traMADol PO 50 mg PO once Route: PO; mb9 Disposition Summary: 06/25/23 13:03 Discharge Ordered Problem: new sb4 Symptoms: have improved sb4 Condition: Stable sb4 Diagnosis - Localized edema sb4 Followup: sb4 - With: Chapo Veliz MD - When: Tomorrow - Reason: Recheck today's complaints, Re-evaluation by your physician Discharge Instructions: - Discharge Summary Sheet sb4 - Peripheral Edema sb4 Forms: - Thank You Letter sb4 - Patient Portal Instructions sb4 - Leadership Thank You Letter sb4 Signatures: Dispatcher [employer] Betzy Grace PA-C PA-C sb4 Dominga Lange RN RN mb9 Corrections: (The following items were deleted from the chart) 11:02 11:02 Chest Single View+[email or web address] ordered. EDMS EDMS
--- NOTE | 2023-06-25 13:03 | ER ---
Nurse's Notes [facility] Name: Valerio Berg Age: 72 yrs Sex: Male : 1950 Arrival Date: 06/25/2023 Time: 10:50 Bed 18 Private MD: Diagnosis: Localized edema Presentation: 06/24 11:15 Chief complaint: EMS states: "toned out for right ankle pain that radiates up the leg. mb9 Pt denies falling or injury. Pt also has bilateral lower edema and a history of CHF.". Coronavirus screen: Vaccine status: Patient reports receiving the 2nd dose of the covid vaccine. Ebola Screen: No symptoms or risks identified at this time. Initial Sepsis Screen: Does the patient meet any 2 criteria? No. Patient's initial sepsis screen is negative. Does the patient have a suspected source of infection? No. Patient's initial sepsis screen is negative. Risk Assessment: Do you want to hurt yourself or someone else? Patient reports no desire to harm self or others. Onset of symptoms was June 25, 2023. 11:15 Method Of Arrival: EMS: [facility] mb9 11:15 Acuity: ADRIÁN 3 mb9 Triage Assessment: 11:18 General: Appears in no apparent distress. Behavior is calm, cooperative. Pain: mb9 Complains of pain in right foot Pain radiates to right leg Pain currently is 9 out of 10 on a pain scale. Quality of pain is described as throbbing. EENT: No signs and/or symptoms were reported regarding the EENT system. Neuro: Payan Agitation-Sedation Scale (RASS): 0 - Alert and Calm Level of Consciousness is awake, alert, obeys commands, Oriented to person, place, time, situation, Appropriate for age. Cardiovascular: Patient's skin is warm and dry. Cardiovascular: Pulses are all present. Edema is 1+ to left midcalf, right midcalf, right ankle and right foot. Respiratory: Airway is patent Respiratory effort is even, unlabored, Respiratory pattern is regular, symmetrical, Breath sounds are clear bilaterally. GI: Abdomen is flat, non-distended. : No signs and/or symptoms were reported regarding the genitourinary system. Derm: Skin is pink, warm \\T\\ dry. Musculoskeletal: Swelling present in right leg and left leg. Historical: - Allergies: 11:09 Betadine; mb9 11:09 Povidone-Iodine; mb9 - Home Meds: 11:09 Furosemide Oral [Active]; inhaler [Active]; mb9 - PMHx: 11:09 Borderline Diabetes; CVA; Hypothyroidism; Myocardial infarction; COPD; mb9 - Immunization history:: Adult Immunizations up to date. - Social history:: Smoking status: Patient reports the use of cigarette tobacco products. Screenin:19 [facility] ED Fall Risk Assessment (Adult) History of falling in the last 3 months, mb9 including since admission No falls in past 3 months (0 pts) Confusion or Disorientation No (0 pts) Intoxicated or Sedated No (0 pts) Impaired Gait No (0 pts) Mobility Assist Device Used No (0 pt) Altered Elimination No (0 pt) Score/Fall Risk Level 0 - 2 = Low Risk Oriented to surroundings, Maintained a safe environment, Educated pt \\T\\ family on fall prevention, incl call for assistance when getting out of bed. Abuse screen: Denies threats or abuse. Nutritional screening: No deficits noted. Tuberculosis screening: No symptoms or risk factors identified. Assessment: 11:19 Reassessment: see triage assessment. mb9 12:30 Reassessment: No changes from previously documented assessment. Patient and/or family mb9 updated on plan of care and expected duration. Pain level reassessed. Patient is alert, oriented x 3, equal unlabored respirations, skin warm/dry/pink. 13:17 Reassessment: Patient and/or family updated on plan of care and expected duration. Pain mb9 level reassessed. Patient is alert, oriented x 3, equal unlabored respirations, skin warm/dry/pink. Patient states feeling better. Patient states symptoms have improved. 13:18 Reassessment: Discharge pending ride home. mb9 Vital Signs: 11:15 BP 159 / 92; Pulse 78; Resp 18; Temp 98.2; Pulse Ox 98% on R/A; Weight 88.45 kg; Height mb9 5 ft. 9 in. ; 13:17 BP 157 / 87; Pulse 74; Resp 18; Pulse Ox 98% ; mb9 11:15 Body Mass Index 28.80 (88.45 kg, 175.26 cm) mb9 ED Course: 11:00 Patient arrived in ED. ll1 11:00 Bet[facility] Monson [facility]-C [facility] sb4 11:00 Jana Barnard MD is Attending Physician. sb4 11:08 Dominga Lange, APURVA is Primary Nurse. mb9 11:08 Arm band placed on. mb9 11:09 Placed in gown. Bed in low position. Call light in reach. Side rails up X 1. Client mb9 placed on continuous cardiac and pulse oximetry monitoring. NIBP monitoring applied. teletypesetter monitor on. Door closed. Noise minimized. Warm blanket given. 11:15 Provided Education on: press call light if needing anything. mb9 11:18 Triage completed. mb9 11:19 No provider procedures requiring assistance completed. mb9 11:32 Inserted saline lock: 22 gauge in right antecubital area, using aseptic technique. mb9 12:44 Chest Single View XRAY In Process Unspecified. EDMS 13:03 Chapo Veliz MD is Referral Physician. sb4 13:17 IV discontinued, intact, bleeding controlled, No redness/swelling at site. Pressure mb9 dressing applied. Administered Medications: 11:15 Drug: Acetaminophen PO 1000 mg PO once Route: PO; mb9 12:09 Follow up: Response: No adverse reaction mb9 11:32 Drug: Furosemide IVP 40 mg IVP once; give over 2 minutes Route: IVP; Site: right mb9 antecubital; 12:09 Follow up: Response: No adverse reaction mb9 13:17 Drug: traMADol PO 50 mg PO once Route: PO; mb9 Medication: 11:19 VIS not applicable for this client. mb9 Outcome: 13:03 Discharge ordered by MD. sb4 13:18 Discharged to home via wheelchair, mb9 13:18 Condition: stable 13:18 Discharge instructions given to patient, Instructed on discharge instructions, follow up and referral plans. Demonstrated understanding of instructions, follow-up care, 13:41 Patient left the ED. mb9 Signatures: Dispatcher [employer] EDSC Sin Magallon RN RN ll1 Betzy Monson PA-C PA-C sb4 Dominga Lange, APURVA RN mb9
[2023-06-25] MEDS ORDERED: TRAMADOL HCL 50 MG TAB ONE (13:07)
[2023-06-25 15:55] VITALS: BP 157/87; TEMP 98.2; O2SAT 98
== END 2023-06-25 13:41 | disposition home or self-care (01) ==
LOC: ER 10:50
DX: R60.0 Localized edema (principal); I50.9 Heart failure, unspecified; J44.9 Chronic obstructive pulmonary disease, unspecified; I25.2 Old myocardial infarction; Z86.73 Personal history of transient ischemic attack (TIA), and cerebral infarction without residual deficits; Z72.0 Tobacco use; Z88.3 Allergy status to other anti-infective agents; Z91.048 Other nonmedicinal substance allergy status
CPT/HCPCS: 71045; 96374; 99285; J1940

== ENCOUNTER 2023-07-19 14:04 | Emergency (ER) | payer OTHER ==
--- OUTSIDE RECORDS SUMMARY | 2023-07-19 14:08 | XMS REPORT | Clinical Summary ---
Author Name Unknown Organization [facility] [place] Address [address] [place] [address] Care Team Providers Care Overnight Babysitter Name Role Phone Ray Veliz MD Unavailable [phone] Dru Smith MD Primary Care Provider [phone] Allergies Active Allergy Reactions Criticality Noted Date [...] & Plan: Patient was seen by inpatient airplane inspector in September 2020 for atrial fibrillation with last EKG done October 28, 2020 showing return to sinus rhythm. Patient is asymptomatic for palpitations or irregular heartbeats. He is currently on carvedilol 6.25 mg p.o. twice daily in addition to Eliquis 5 mg p.o. twice daily with no bleeding problems. Unfortunately patient lives [address] [place] from [facility] therefore we do not have any updated labs nor EKG since his visit in October. Patient will continue his current regimen and I have confirmed that he has established a follow-up with his local airplane inspector in March for further management. 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 Advance Directives: Medical Power of Oracle Business Analyst 11/02/2020 Medical Power of Att orney Latest Code Status on File Code Status Date Activated Date Inactivated Comments Full Code 10/07/2020 12:02 PM 11/14/2020 4:41 PM Code Status History Code Status Date Activated Date Inactivated Comments Full Code 09/17/2020 12:45 PM 09/23/2020 7:59 PM Care Teams Overnight Babysitter Relationship Specialty Start Date End Date Ray Veliz MD [address] [place] [address] PCP - External Referring Internal Medicine 09/03/20 Dru Smith MD [address] [place] [address] PCP - General Lymphoma and Myeloma 09/16/20
--- NOTE | 2023-07-19 16:10 | RAD REPORT ---
EXAM DESCRIPTION: RAD - Hip Left 2 View - 07/19/2023 2:43 pm CLINICAL HISTORY: PAIN COMPARISON: Hip Left 2 View dated 11/16/2016 TECHNIQUE: Left hip, AP and frogleg views of the left hip. FINDINGS: There is no fracture or dislocation. Left total hip arthroplasty hardware in unchanged ali gnment. No evidence of complications. No acute or destructive bony process seen. IMPRESSION: No acute findings of the left hip. Stable alignment of left total hip arthroplasty hardw are
--- NOTE | 2023-07-19 16:19 | EDPHYS ---
Physician Documentation [facility] Name: Valerio Berg Age: 72 yrs Sex: Male : 1950 Arrival Date: 07/19/2023 Time: 14:04 Bed 16 Private MD: Chapo Veliz C ED Physician Paul Hansen HPI: 07/18 14:28 This 72 yrs old Black Male presents to ER via Wheelchair with complaints of Fall kb Injury, Hip Injury. 14:28 Patient is a 72-year-old male who fell on onto left hip. States he had pain kb afterwards but was able to get around. States now he has pain only with movement and ambulation. Ambulates with cane. Denies any other injuries. Historical: - Allergies: 14:23 Betadine; ll1 14:23 Povidone-Iodine; ll1 - PMHx: 14:23 Borderline Diabetes; COPD; CVA; Hypothyroidism; Myocardial infarction; ll1 - Immunization history:: Adult Immunizations. - Infectious Disease History:: Denies. - Social history:: Smoking status: Patient denies any tobacco usage or history of. ROS: 14:28 Constitutional: As per HPI kb Exam: 14:28 Constitutional: This is a well developed, well nourished patient who is awake, alert, kb and in no acute distress. Head/Face: Normocephalic, atraumatic. ENT: Moist Mucous membranes Cardiovascular: Regular rate Respiratory: Respirations even and unlabored. No increased work of breathing. Talking in full sentences Abdomen/GI: Soft, non-tender. No distention Skin: Warm, dry with normal turgor. Normal color. Neuro: Awake and alert, GCS 15, oriented to person, place, time, and situation. Moves all extremities. Normal gait. 16:17 Musculoskeletal/extremity: Extremities: grossly normal except: noted in the left hip: kb pain, swelling, tenderness, large hematoma, ROM: intact in all extremities, Circulation is intact in all extremities. Sensation intact. Weight bearing: can bear weight with assistance only, uses cane, Vital Signs: 14:24 BP 118 / 56; Pulse 62; Resp 17; Temp 97.2; Pulse Ox 98% ; Weight 90.72 kg; Height 5 ft. ll1 10 in. ; Pain 7/10; 16:56 BP 121 / 61; Pulse 67; Resp 16; Pulse Ox 100% ; bp 14:24 Body Mass Index 28.70 (90.72 kg, 177.8 cm) ll1 14:24 Pain Scale: Adult ll1 MDM: 14:06 Patient medically screened. kb 14:29 Differential diagnosis: Fracture, contusion, hematoma. Data reviewed: vital signs, kb nurses notes. 16:17 Management of patient was discussed with the following: Dr Barnard, recommends outpatient kb follow up. Counseling: I had a detailed discussion with the patient and/or guardian regarding the historical points, exam findings, and any diagnostic results supporting the discharge/admit diagnosis, radiology results, the need for outpatient follow up, a orthopedic surgeon, to return to the emergency department if symptoms worsen or persist or if there are any questions or concerns that arise at home. 07/18 14:24 Order name: Hip Left 2 View XRAY; Complete Time: 16:13 kb Administered Medications: No medications were administered Disposition Summary: 07/19/23 16:18 Discharge Ordered Notes: Location: Home kb Condition: Stable kb Diagnosis - Fall on same level, unspecified kb - Contusion of left hip kb Followup: kb - With: Emergency Department - When: As needed - Reason: Worsening of condition Followup: kb - With: Private Physician - When: 2 - 3 days - Reason: Recheck today's complaints, Continuance of care, Re-evaluation by your physician Discharge Instructions: - Discharge Summary Sheet kb - Hematoma, [id number] kb - Contusion, [id number] kb Forms: - Medication Reconciliation Form kb - Antibiotic Education kb - Prescription Opioid Use kb - Patient Portal Instructions kb - Leadership Thank You Letter kb Signatures: Dispatcher [employer] Janiya Renae, JOURNAL CLERK-C JOURNAL CLERK-Avila Fernandes, RN RN Sin Lopez, RN RN ll1
--- NOTE | 2023-07-19 16:19 | ER ---
Nurse's Notes [facility] Name: Valerio Berg Age: 72 yrs Sex: Male : 1950 Arrival Date: 07/19/2023 Time: 14:04 Bed 16 Private MD: Chapo Veliz C Diagnosis: Fall on same level, unspecified;Contusion of left hip Presentation: 07/18 14:24 Chief complaint: Patient states: Fell on . L hip pain, swelling since. ll1 Coronavirus screen: Client denies travel out of the [place] in the last 14 days. At this time, the client does not indicate any symptoms associated with coronavirus-19. Ebola Screen: Patient denies travel to an Ebola-affected area in the 21 days before illness onset. Initial Sepsis Screen: Does the patient meet any 2 criteria? No. Patient's initial sepsis screen is negative. Does the patient have a suspected source of infection? No. Patient's initial sepsis screen is negative. Risk Assessment: Do you want to hurt yourself or someone else? Patient reports no desire to harm self or others. Onset of symptoms was July 13, 2023. 14:24 Method Of Arrival: Wheelchair ll1 14:24 Acuity: ADRIÁN 3 ll1 Triage Assessment: 14:30 General: Appears in no apparent distress. Behavior is calm, cooperative, appropriate bp for age. Pain: Complains of pain in left hip. Musculoskeletal: Circulation, motion, and sensation intact. Range of motion: intact in all extremities. Historical: - Allergies: 14:23 Betadine; ll1 14:23 Povidone-Iodine; ll1 - PMHx: 14:23 Borderline Diabetes; COPD; CVA; Hypothyroidism; Myocardial infarction; ll1 - Immunization history:: Adult Immunizations. - Infectious Disease History:: Denies. - Social history:: Smoking status: Patient denies any tobacco usage or history of. Screenin:56 [facility] ED Fall Risk Assessment (Adult) History of falling in the last 3 months, bp including since admission No falls in past 3 months (0 pts). Abuse screen: Denies threats or abuse. Denies injuries from another. Nutritional screening: No deficits noted. Tuberculosis screening: No symptoms or risk factors identified. Assessment: 14:30 General: SEE TRIAGE NOTE. bp 16:56 Reassessment: Patient appears in no apparent distress at this time. Patient is alert, bp oriented x 3, equal unlabored respirations, skin warm/dry/pink. Vital Signs: 14:24 BP 118 / 56; Pulse 62; Resp 17; Temp 97.2; Pulse Ox 98% ; Weight 90.72 kg; Height 5 ft. ll1 10 in. ; Pain 7/10; 16:56 BP 121 / 61; Pulse 67; Resp 16; Pulse Ox 100% ; bp 14:24 Body Mass Index 28.70 (90.72 kg, 177.8 cm) ll1 14:24 Pain Scale: Adult ll1 ED Course: 14:05 Patient arrived in ED. mr 14:05 Chapo Veliz MD is Private Physician. mr 14:06 Janiya Beltran FNP-C is [facility]. kb 14:06 Paul Hansen MD is Attending Physician. kb 14:25 Triage completed. ll1 14:25 Arm band placed on. ll1 14:26 Avila Mc, RN is Primary Nurse. bp 14:39 Hip Left 2 View XRAY Sent. bp 14:43 Hip Left 2 View XRAY In Process Unspecified. EDMS 16:56 Patient has correct armband on for positive identification. Provided Education on: N/A. bp 16:56 No provider procedures requiring assistance completed. Patient did not have IV access bp during this emergency room visit. Administered Medications: No medications were administered Medication: 16:56 VIS not applicable for this client. bp Outcome: 16:18 Discharge ordered by MD. kb 16:56 Discharged to home ambulatory, with family, bp 16:56 Condition: stable 16:56 Discharge instructions given to patient, Instructed on discharge instructions, follow up and referral plans. Demonstrated understanding of instructions, follow-up care, 16:59 Patient left the ED. bp Signatures: Dispatcher [employer] EDNE Janiya Beltran FNP-C FNP-Dominga Dumont, Reg Reg mr Avila Mc, RN RN Sin Lopez RN RN ll1
[2023-07-19 17:22] VITALS: BP 121/61; TEMP 97.2; O2SAT 100
== END 2023-07-19 16:59 | disposition home or self-care (01) ==
LOC: ER 14:04
DX: S70.02XA Contusion of left hip, initial encounter (principal); W18.30XA Fall on same level, unspecified, initial encounter; Z88.3 Allergy status to other anti-infective agents; Z88.8 Allergy status to other drugs, medicaments and biological substances

== ENCOUNTER 2023-07-28 13:39 | Inpatient (IN) | payer OTHER ==
--- OUTSIDE RECORDS SUMMARY | 2023-07-28 13:41 | XMS REPORT | Clinical Summary ---
Author Name Unknown Organization [facility] Address [address] [place] [address] Care Team Providers Care [facility] Name Role Phone Ray Veliz MD Unavailable [phone] Dru Smith MD Primary Care Provider [phone] Allergies Active Allergy Reactions Criticality Noted Date [...] & Plan: Patient was seen by inpatient egg tester in September 2020 for atrial fibrillation with last EKG done October 28, 2020 showing return to sinus rhythm. Patient is asymptomatic for palpitations or irregular heartbeats. He is currently on carvedilol 6.25 mg p.o. twice daily in addition to Eliquis 5 mg p.o. twice daily with no bleeding problems. Unfortunately patient lives [place] from [facility] therefore we do not have any updated labs nor EKG since his visit in October. Patient will continue his current regimen and I have confirmed that he has established a follow-up with his local egg tester in March for further management. Clostridioides difficile [...] Comments COVID-19 Vaccine (#1) 04/10/1951 Influenza Vaccine 11/26/2023 Medical Devices Implanted Type Area Truck Loader And Unloader Device Identifier Shelf Expiration Date Model / Serial / Lot Metalware Metalware Right: Arm Description:pt sts he has a metal ryan in r arm Stent Stent Heart Advance Directives Documents on File Type Date Recorded Patient Belting Cutter Expl anation Advance Directives: Medical Power of Cfo Controller 11/02/2020 Medical Power of Att orney Latest Code Status on File Code Status Date Activated Date Inactivated Comments Full Code 10/07/2020 12:02 PM 11/14/2020 4:41 PM Code Status History Code Status Date Activated Date Inactivated Comments Full Code 09/17/2020 12:45 PM 09/23/2020 7:59 PM Care Teams [facility] Relationship Specialty Start Date End Date Ray Veliz MD [address] [place] [id number] PCP - External Referring Internal Medicine 09/03/20 Dru Smith MD [address] [place] [address] PCP - General Lymphoma and Myeloma 09/16/20
[2023-07-28] MEDS ORDERED: IPRATROPIUM BROM 0.5MG/2.5ML ONE (14:37)
[2023-07-28] MEDS ORDERED: ALBUTEROL 2.5 MG/3 ML NEB SOL ONE (14:38)
--- NOTE | 2023-07-28 14:52 | RAD REPORT ---
EXAM DESCRIPTION: RAD - Chest Single View - 07/28/2023 2:44 pm CLINICAL HISTORY: COUGH COMPARISON: Chest Single View dated 06/25/2023; Chest Single View dated 04/18/2023; Chest Single View dated 01/30/2023; Chest Pa And Lat (2 Views) dated 03/17/2022; Head C Spine Cap Wo Con dated 04/18/2023 FINDINGS: Lines: None. Lungs: No evidence of edema or pneumonia. Pleural: No significant pleural effusions or pneumothorax. Cardiac: Similar cardiomegaly. Sternotomy. Mediastinum: Within normal limits. Bones: No acute fractures. Other: Colon interposed to the diaphragm and right hepatic lobe in the right upper quadrant. IMPRESSION: No acute cardiopulmonary disease.
[2023-07-28 15:20] LABS: PT Prothrombin Time 17.4 SECONDS (9.5-12.5); Protime INR 1.6
[2023-07-28 15:24] LABS: Absolute Basophils 0.1 K/uL (0-0.5); Absolute Eosinophils 0.2 K/uL (0-0.5); Absolute Lymphocytes (CBC) 0.9 K/uL (0.7-4.9); Absolute Neutrophil 4.9 K/uL (1.8-8.0); Basophils % 0.7 % (0-1.3); Eosinophils % 3.4 % (0-4.4); Hematocrit 27.9 % (39.6-49.0); Hemoglobin 9.3 g/dL (13.6-17.9); Lymphocytes % 12.4 % (15.3-44.8); MCH 29.4 pg (27.0-35.0); MCHC 33.2 g/dL (32.0-36.0); MCV 88.7 fL (80-100); Monocytes % 14.3 % (3.3-12.3); Neutrophils % 69.2 % (41.7-73.7); Nucleated Red Blood Cells % 0.4 % (0-0); Platelets 279 thou/uL (152-406); RBC Red Blood Cell Count 3.15 M/uL (4.33-5.43); Red Cell Distribution Width 16.5 % (12.1-15.2)
[2023-07-28 15:30] LABS: Albumin 3.4 g/dL (3.4-5.0); Albumin/Globulin Ratio 0.9 (1.1-1.8); Anion Gap 8.9 mEq/L (5.0-15.0); Bilirubin Direct 0.3 mg/dL (0-0.2); Bilirubin Indirect, Calculated 0.3 mg/dL (0.2-0.8); Bilirubin Total 0.6 mg/dL (0.2-1.0); Globulin 3.8 g/dL (2.3-3.5); Magnesium 2.6 mg/dL (1.6-2.4); Potassium 3.9 mEq/L (3.5-5.1); Protein, Total 7.2 g/dL (6.4-8.2)
[2023-07-28 15:32] LABS: SARS-CoV-2 Antigen CONTROL BLUE LINE VIS/BG OK; SARS-CoV-2 Antigen Rapid Res Negative (Negative)
[2023-07-28 15:35] LABS: Troponin High Sensitivity 205.7 pg/mL (<58.9)
--- NOTE | 2023-07-28 15:57 | ER ---
Nurse's Notes [facility] Name: Valerio Berg Age: 72 yrs Sex: Male : 1950 Arrival Date: 07/28/2023 Time: 13:39 Bed 17 Private MD: Diagnosis: CHF exacerbation, COPD exacerbation Presentation: 07/27 14:01 Chief complaint: Pt's ex sister-in law reports cough and hoarse voice today. Denies aa5 SOB. Coronavirus screen: cough unrelated to allergies. Ebola Screen: Patient denies travel to an Ebola-affected area in the 21 days before illness onset. Initial Sepsis Screen: Does the patient meet any 2 criteria? No. Patient's initial sepsis screen is negative. Does the patient have a suspected source of infection? No. Patient's initial sepsis screen is negative. Risk Assessment: Do you want to hurt yourself or someone else? Patient reports no desire to harm self or others. Onset of symptoms was July 28, 2023. 14:01 Acuity: ADRÁIN 3 aa5 14:01 Method Of Arrival: Wheelchair aa5 Historical: - Allergies: 14:02 Betadine; aa5 14:02 Povidone-Iodine; aa5 - PMHx: 14:02 Borderline Diabetes; COPD; CVA; Hypothyroidism; Myocardial infarction; aa5 - Immunization history:: Adult Immunizations unknown. - Infectious Disease History:: Denies. - Social history:: Smoking status: Patient denies any tobacco usage or history of. Screenin:25 [facility] ED Fall Risk Assessment (Adult) History of falling in the last 3 months, db including since admission No falls in past 3 months (0 pts) Confusion or Disorientation No (0 pts) Intoxicated or Sedated No (0 pts) Impaired Gait No (0 pts) Mobility Assist Device Used No (0 pt) Altered Elimination No (0 pt) Score/Fall Risk Level 0 - 2 = Low Risk Oriented to surroundings, Maintained a safe environment. Abuse screen: Denies threats or abuse. Denies injuries from another. Nutritional screening: No deficits noted. Tuberculosis screening: No symptoms or risk factors identified. Assessment: 15:15 Reassessment: Patient appears in no apparent distress at this time. Patient and/or db family updated on plan of care and expected duration. Pain level reassessed. Patient is alert, oriented x 3, equal unlabored respirations, skin warm/dry/pink. General: Appears in no apparent distress. uncomfortable, Behavior is calm, cooperative. Pain: Denies pain. Neuro: Level of Consciousness is awake, alert, obeys commands, Oriented to person, place, time, situation. Cardiovascular: Reports shortness of breath, Capillary refill < 3 seconds Patient's skin is warm and dry. Rhythm is regular. Respiratory: Airway is patent Respiratory effort is even, unlabored, Respiratory pattern is regular, symmetrical, Breath sounds are coarse bilaterally. 17:41 Reassessment: Patient appears in no apparent distress at this time. Patient and/or db family updated on plan of care and expected duration. Pain level reassessed. Patient is alert, oriented x 3, equal unlabored respirations, skin warm/dry/pink. SITTING UP ON EDGE OF BED. UPDATED OF ROOM ASSIGNMENT. 17:44 Reassessment: NOTIFIED UNIT REPORT FAXED. db 17:44 Reassessment: ATTEMPTED TO NOTIFY UNIT PT IS ON WAY AND TO ANSWER QUESTIONS. db 18:20 Reassessment: Patient appears in no apparent distress at this time. Patient and/or db family updated on plan of care and expected duration. Pain level reassessed. Patient is alert, oriented x 3, equal unlabored respirations, skin warm/dry/pink. Vital Signs: 14:01 BP 104 / 65; Pulse 65; Resp 18 S; Temp 98.4(O); Pulse Ox 97% on R/A; Weight 92.53 kg aa5 (R); Height 5 ft. 10 in. (R); 15:30 BP 108 / 59; Pulse 65; Resp 18; Pulse Ox 99% on 2 lpm NC; db 16:00 BP 115 / 52; Pulse 62; Resp 18; Pulse Ox 95% on R/A; db 17:30 BP 130 / 70; Pulse 61; Resp 18; Temp 98.2; Pulse Ox 98% on 2 lpm NC; db 18:00 BP 121 / 81; Pulse 64; Resp 18; Pulse Ox 95% on R/A; db 14:01 Body Mass Index 29.27 (92.53 kg, 177.8 cm) aa5 ED Course: 13:41 Patient arrived in ED. mr 13:57 Jana Barnard MD is Attending Physician. sp3 14:01 Arm band placed on. aa5 14:02 Triage completed. aa5 14:24 Lexi Stahl, RN is Primary Nurse. db 14:45 Chest Single View In Process Unspecified. EDMS 14:50 Inserted saline lock: 22 gauge in left antecubital area, using aseptic technique. Blood db collected. 15:56 Ray Veliz MD is Hospitalizing Provider. sp3 16:25 Patient has correct armband on for positive identification. Bed in low position. Call db light in reach. Side rails up X 1. Provided Education on: MEDICATIONS AND ADMISSION. Client placed on continuous cardiac and pulse oximetry monitoring. NIBP monitoring applied. quality assurance monitor chassis on. Pulse ox on. NIBP on. Warm blanket given. 17:41 No provider procedures requiring assistance completed. Patient admitted, IV remains in db place. Administered Medications: 14:40 Drug: DuoNeb Nebulize (3:1) (2.5 mg - 0.5 mg) 3 ml Nebulizer once Route: Nebulizer; db 16:23 Follow up: Response: No adverse reaction db 16:05 Drug: Furosemide IVP 40 mg IVP once; give over 2 minutes Route: IVP; Site: left db antecubital; 17:41 Follow up: Response: No adverse reaction db 16:10 Drug: MethylPrednisoLONE IVP 40 mg IVP once Route: IVP; Site: left antecubital; db 17:41 Follow up: Response: No adverse reaction db Medication: 15:00 VIS not applicable for this client. db Output: 17:42 Urine: 775ml (Voided); Total: 775ml. db Outcome: 15:57 Decision to Hospitalize by Provider. sp3 17:41 Admitted to ER Hold. Please see [facility] for further documentation. db 17:41 Condition: stable 17:41 Instructed on the need for admit, 18:24 Patient left the ED. db Signatures: Dispatcher [employer] EDWV ChoudharyDominga norwood, Reg Reg Enedelia Boyle, RN RN aa5 Jana Barnard MD MD sp3 Lexi Stahl, RN RN db Corrections: (The following items were deleted from the chart) 14:03 14:01 BP 104 / 65; Pulse 65bpm; Resp 18bpm; Spontaneous; Pulse Ox 97% RA; Temp 98.4F aa5 Oral; aa5
--- NOTE | 2023-07-28 15:57 | EDPHYS ---
Physician Documentation [facility] Name: Valerio Berg Age: 72 yrs Sex: Male : 1950 Arrival Date: 07/28/2023 Time: 13:39 Bed 17 Private MD: ED Physician Jana Barnard HPI: 07/27 14:16 This 72 yrs old Black Male presents to ER via Wheelchair with complaints of Cough. sp3 14:16 72-year-old male history of COPD, CVA, borderline diabetes, prior [place] now presents to ED sp3 with chief complaint shortness of breath, cough, upper respiratory congestion. He feels like he has a hard time catching his breath on any exertion. He denies chest pain, back pain, abdominal pain, vomiting, diarrhea, syncope, near syncope, focal neurological deficit, or any other signs or symptoms on ROS at this time. He also denies fever, known sick contacts or travel history.. Historical: - Allergies: 14:02 Betadine; aa5 14:02 Povidone-Iodine; aa5 - PMHx: 14:02 Borderline Diabetes; COPD; CVA; Hypothyroidism; Myocardial infarction; aa5 - Immunization history:: Adult Immunizations unknown. - Infectious Disease History:: Denies. - Social history:: Smoking status: Patient denies any tobacco usage or history of. ROS: 14:19 Constitutional: Negative for fever, chills, and weight loss, Eyes: Negative for injury, sp3 pain, redness, and discharge, Neck: Negative for injury, pain, and swelling, Cardiovascular: Negative for chest pain, palpitations, and edema, Abdomen/GI: Negative for abdominal pain, nausea, vomiting, diarrhea, and constipation, Back: Negative for injury and pain, MS/Extremity: Negative for injury and deformity, Skin: Negative for injury, rash, and discoloration, Neuro: Negative for headache, weakness, numbness, tingling, and seizure, Psych: Negative for depression, anxiety, suicide ideation, homicidal ideation, and hallucinations, Allergy/Immunology: Negative for hives, rash, and allergies, Endocrine: Negative for neck swelling, polydipsia, polyuria, polyphagia, and marked weight changes, Hematologic/Lymphatic: Negative for swollen nodes, abnormal bleeding, and unusual bruising, 14:19 All other systems are negative, Exam: 14:19 Constitutional: This is a well developed, well nourished patient who is awake, alert, sp3 and in no acute distress. Head/Face: Normocephalic, atraumatic. Eyes: Pupils equal round and reactive to light, extra-ocular motions intact. Lids and lashes normal. Conjunctiva and sclera are non-icteric and not injected. Cornea within normal limits. Periorbital areas with no swelling, redness, or edema. Neck: Trachea midline, no thyromegaly or masses palpated, and no cervical lymphadenopathy. Supple, full range of motion without nuchal rigidity, or vertebral point tenderness. No Meningismus. Chest/axilla: Normal chest wall appearance and motion. Nontender with no deformity. No lesions are appreciated. Abdomen/GI: Soft, non-tender, with normal bowel sounds. No distension or tympany. No guarding or rebound. No evidence of tenderness throughout. Back: No spinal tenderness. No costovertebral tenderness. Full range of motion. Skin: Warm, dry with normal turgor. Normal color with no rashes, no lesions, and no evidence of cellulitis. MS/ Extremity: Pulses equal, no cyanosis. Neurovascular intact. Full, normal range of motion. Neuro: Awake and alert, GCS 15, oriented to person, place, time, and situation. Cranial nerves II-XII grossly intact. Motor strength 5/5 in all extremities. Sensory grossly intact. Cerebellar exam normal. Normal gait. Psych: Awake, alert, with orientation to person, place and time. Behavior, mood, and affect are within normal limits. 14:19 Respiratory: Active cough and rhonchi noted. 96% room air pulse oxygenation., 15:28 ECG was reviewed by the Attending Physician. EKG demonstrates atrial fibrillation with sp3 ventricular capture at 80 bpm with right bundle branch block and diffuse ST's ST changes without evidence of acute ischemia. Vital Signs: 14:01 BP 104 / 65; Pulse 65; Resp 18 S; Temp 98.4(O); Pulse Ox 97% on R/A; Weight 92.53 kg aa5 (R); Height 5 ft. 10 in. (R); 15:30 BP 108 / 59; Pulse 65; Resp 18; Pulse Ox 99% on 2 lpm NC; db 16:00 BP 115 / 52; Pulse 62; Resp 18; Pulse Ox 95% on R/A; db 17:30 BP 130 / 70; Pulse 61; Resp 18; Temp 98.2; Pulse Ox 98% on 2 lpm NC; db 18:00 BP 121 / 81; Pulse 64; Resp 18; Pulse Ox 95% on R/A; db 14:01 Body Mass Index 29.27 (92.53 kg, 177.8 cm) aa5 MDM: 14:02 Patient medically screened. 3 14:19 Data reviewed: vital signs, nurses notes, lab test result(s), EKG, radiologic studies. sp3 ED course: 72-year-old male with shortness of breath and cough. Differential diagnosis includes COPD exacerbation, bronchitis, pneumonia and to a lesser likelihood ACS spectrum and CHF. I am not highly suspicious for sepsis, shock, vascular pathology or any other critical process at this time. Disposition pending workup and patient course. Workup will include chest x-ray, EKG, laboratory values, swabs and nebulizer treatment. Will later on antibiotics as indicated.. 07/27 14:03 Order name: Basic Metabolic Panel 3 07/27 14:03 Order name: CBC with Diff 3 07/27 14:03 Order name: LFT's 3 07/27 14:03 Order name: Magnesium 3 07/27 14:03 Order name: NT PRO-BNP 3 07/27 14:03 Order name: PT-INR [facility] 07/27 14:03 Order name: Troponin HS 3 07/27 14:03 Order name: SARS RAPID 3 07/27 14:03 Order name: Flu 3 07/27 15:06 Order name: Basic Metabolic Panel [facility] 07/27 15:07 Order name: Liver (Hepatic) Function [facility] 07/27 15:07 Order name: Troponin High Sensitivity [facility] 07/27 15:07 Order name: NT PRO-BNP [facility] 07/27 15:07 Order name: Magnesium [facility] 07/27 15:07 Order name: SARS-COV-2 Antigen Rapid [facility] 07/27 15:07 Order name: CBC with Automated Diff [facility] 07/27 15:07 Order name: Protime (+INR) [facility] 07/27 15:07 Order name: Influenza Screen (A [facility] 07/27 15:20 Order name: Protime (+INR); Complete Time: 15:39 [facility] 07/27 15:24 Order name: CBC with Automated Diff; Complete Time: 15:39 [facility] 07/27 15:33 Order name: SARS-COV-2 Antigen Rapid; Complete Time: 15:39 ED[facility] 07/27 15:36 Order name: Basic Metabolic Panel; Complete Time: 15:39 EDMS 07/27 15:36 Order name: Liver (Hepatic) Function; Complete Time: 15:39 EDMS 07/27 15:36 Order name: Troponin High Sensitivity; Complete Time: 15:39 EDMS 07/27 15:36 Order name: NT PRO-BNP; Complete Time: 15:39 EDMS 07/27 15:36 Order name: Magnesium; Complete Time: 15:39 EDMS 07/27 15:41 Order name: Influenza Screen (A ; Complete Time: 15:43 EDMS 07/27 14:03 Order name: XRAY Chest (1 view) 3 07/27 14:10 Order name: Chest Single View [facility] 07/27 14:53 Order name: RAD; Complete Time: 15:39 EDMS 07/27 15:53 Order name: Echo w/ Doppler sp3 07/27 14:03 Order name: EKG; Complete Time: 14:03 sp3 07/27 14:03 Order name: Cardiac monitoring; Complete Time: 15:47 sp3 07/27 14:03 Order name: EKG - Nurse/Tech; Complete Time: 15:20 sp3 07/27 14:03 Order name: IV Saline Lock; Complete Time: 15:19 sp3 07/27 14:03 Order name: Labs collected and sent; Complete Time: 15:19 sp3 07/27 14:03 Order name: O2 Per Protocol; Complete Time: 15:19 sp3 07/27 14:03 Order name: O2 Sat Monitoring; Complete Time: 15:19 sp3 Administered Medications: 14:40 Drug: DuoNeb Nebulize (3:1) (2.5 mg - 0.5 mg) 3 ml Nebulizer once Route: Nebulizer; db 16:23 Follow up: Response: No adverse reaction db 16:05 Drug: Furosemide IVP 40 mg IVP once; give over 2 minutes Route: IVP; Site: left db antecubital; 17:41 Follow up: Response: No adverse reaction db 16:10 Drug: MethylPrednisoLONE IVP 40 mg IVP once Route: IVP; Site: left antecubital; db 17:41 Follow up: Response: No adverse reaction db Disposition Summary: 07/28/23 15:57 Hospitalization Ordered Notes: Hospitalization Status: Inpatient Admission sp3 Provider: Ray Veliz sp3 Location: Telemetry/MedSurg (Inpatient) sp3 Condition: Stable sp3 Problem: an acute exacerbation sp3 Symptoms: have worsened sp3 Bed/Room Type: Standard sp3 Room Assignment: 412(07/28/23 17:21) dw Diagnosis - CHF exacerbation, COPD exacerbation sp3 Forms: - Medication Reconciliation Form sp3 - SBAR form sp3 - Leadership Thank You Letter sp3 Signatures: Dispatcher [employer] Brenda Valero RN RN dw Enedelia Boyle RN RN aa5 Jana Barnard MD MD sp3 Lexi Stahl RN RN db Corrections: (The following items were deleted from the chart) 17:21 15:57 sp3 dw
[2023-07-28] MEDS ORDERED: METHYLPREDNISOLONE 125 MG INJ ONE (16:09)
[2023-07-28] MEDS ORDERED: FUROSEMIDE 40 MG/4 ML VIAL ONE (16:09)
[2023-07-28] MEDS ORDERED: ALBUTEROL 2.5 MG/3 ML NEB SOL NEB PRN (18:56)
[2023-07-28] MEDS ORDERED: IPRATROPIUM BROM 0.5MG/2.5ML NEB PRN (18:56)
[2023-07-28] MEDS: ASPIRIN EC 81 MG TAB PO ONE (20:47)
[2023-07-28] MEDS: ATORVASTATIN 40 MG TAB PO SCH (20:47)
[2023-07-28] MEDS: HEPARIN 5000 UNIT/ML 1 ML VIAL SQ SCH (20:47)
[2023-07-28] MEDS: ROPINIROLE HCL 1 MG TAB PO SCH (20:47)
[2023-07-28] MEDS: FUROSEMIDE 40 MG/4 ML VIAL IV SCH (20:48)
[2023-07-28] MEDS ORDERED: D50W 25 GM/50 ML SYRINGE IV PRN (21:20)
[2023-07-28] MEDS ORDERED: GLUCAGON 1 MG/VIAL IM PRN (21:20)
[2023-07-28] MEDS ORDERED: D10W 125 ML IV PRN (21:37)
[2023-07-28] MEDS: INSULIN REGULAR (HUMAN) 100 UNIT/ML SQ SCH (22:51)
[2023-07-29] MEDS: METHYLPREDNISOLONE 40 MG INJ IV SCH (00:28)
[2023-07-29] MEDS: LEVOTHYROXINE SOD 0.025 MG TAB PO SCH (06:26)
[2023-07-29 08:11] LABS: Absolute Lymphocytes (CBC) 0.5 K/uL (0.7-4.9); Absolute Monocytes 0.2 K/uL (0.1-1.3); Absolute Neutrophil 5.6 K/uL (1.8-8.0); Basophils % 0.2 % (0-1.3); Hematocrit 30.1 % (39.6-49.0); Lymphocytes % 7.9 % (15.3-44.8); MCH 29.5 pg (27.0-35.0); MCHC 33.1 g/dL (32.0-36.0); MPV 7.2 fL (7.6-11.3); Monocytes % 2.5 % (3.3-12.3); Neutrophils % 89.4 % (41.7-73.7); Nucleated Red Blood Cells % 0.1 % (0-0); Platelets 299 thou/uL (152-406); RBC Red Blood Cell Count 3.38 M/uL (4.33-5.43); Red Cell Distribution Width 15.9 % (12.1-15.2)
[2023-07-29 08:31] LABS: Anion Gap 8.5 mEq/L (5.0-15.0); Potassium 4.5 mEq/L (3.5-5.1)
[2023-07-29 08:37] LABS: Troponin High Sensitivity 167.8 pg/mL (<58.9)
[2023-07-29 09:20] LABS: Blood Morphology Comment NOT SEEN (NOT SEEN); Platelet Estimate ADEQ; White Blood Cell Scan OK (OK)
[2023-07-29] MEDS: ASPIRIN EC 81 MG TAB PO SCH (09:24)
[2023-07-29 14:52] VITALS: BMI 29.2
[2023-07-29] MEDS: INSULIN REGULAR (HUMAN) 100 UNIT/ML SQ SCH (16:30)
[2023-07-29] MEDS ORDERED: INSULIN REGULAR (HUMAN) 100 UNIT/ML SQ SCH (16:30)
--- NOTE | 2023-07-29 19:05 | CON ---
Date of Consultation: 07/29/2023 Reason For Consultation: CHF. History Of Present Illness: A 72-year-old male, history of COPD, CVA, diabetes, coronary artery dise ase, presented to the emergency room with shortness of breath, cough, and upper respiratory tract inf ection symptoms and shortness of breath is exertional. Denies having any chest pain. No nausea, vom iting. No abdominal pain. All other systems reviewed are negative. Past Medical History: As outlined above in the HPI. Medications: Refer reconciliation sheet for detailed list. Allergies: IODINE. Family History: No premature coronary artery disease or cancer. Social History: He does not drink, use any drugs. Review of Systems: All systems reviewed are negative except as mentioned in the HPI. Physical Examination: Vital Signs: Temperature is 97.4, pulse 61, breathing at 16, blood pressure is 101/59, saturating 97 % on room air. General: Pleasant elderly male in no apparent distress. Head and Neck: Pupils are equal, reactive to light. Intact eye movements. No JVD. No cervical lym phadenopathy. Neck is supple. Thyroid is not enlarged. Lungs: Clear to auscultation bilaterally. No rhonchi, wheezing, or crackles. No accessory muscle u se. Heart: Regular. No extra sounds. Abdomen: Soft, nontender. Bowel sounds positive. No organomegaly. No masses or hernia. No rigidi ty or rebound. Extremities: 3+ edema bilaterally. No clubbing, cyanosis. Intact pulses. Skin: No rash. No nodule. Neurologic: Alert, awake, oriented x3. No acute focal deficits appreciated. Investigations: BUN 51, creatinine is 2. Troponin 222 and then 167. Chest x-ray, no acute abnormal ity. Assessment And Recommendation: 1.Shortness of breath. Could be due to COPD versus mild component of CHF. He does not look severel y fluid overloaded. He has significant lower extremity edema which is chronic, but I do not believe this is acute decompensation of his heart failure. Diuretics are recommended with caution. Monitor BUN and creatinine very closely. In fact with the blood pressure being low I will hold off on diuret ics tonight and focus on managing his COPD further. 2.Elevated troponin. No chest pain. It is likely demand. Plan for ischemia workup as an outpatien t if not done recently. 3.Dyslipidemia. Continue statin. SR/MODL Voice ID: [id number] Report ID: [id number]
--- NOTE | 2023-07-30 01:08 | HP ---
Date of Admission: 07/29/2023 Chief Complaint: Cough and shortness of breath. History Of Present Illness: This is a 72-year-old male patient with multiple chronic comorbidities including COPD, chronic heart failure, came into emergency room with worsening of shortness of breath and leg swelling associated with dry cough. The patient has ongoing chronic problem with cough, which is nothing new or different, but having more leg swelling and more shortness of breath with daily activity including just walking from room to room or across the room. Denies any chest pain. No fever, chills, nausea, vomiting, or diarrhea. He has not had any hemoptysis. No fever, no chills. After he came into emergency room, he was evaluated and admitted to the hospital. Allergies: NO KNOWN ALLERGIES. Medications: Albuterol nebulizer treatment 4 times a day as needed, albuterol inhaler 4 times a day as needed, Combivent Respimat inhaler 2 puffs 4 times a day as needed, clopidogrel 75 mg daily, atorvastatin 40 mg daily at bedtime, carvedilol 6.25 mg 2 times a day, Senokot-S 2 tablets daily, furosemide 80 mg 2 times a day, levothyroxine 25 mcg daily, Tradjenta 5 mg daily in morning with breakfast, montelukast 10 mg daily, potassium chloride 20 mEq take half a tablet daily, ropinirole 1 mg 2 times a day, Entresto 24/26 mg 1 tablet 2 times a day, Valtrex 500 mg daily, Aspirin 81 mg daily. Recently his Eliquis was stopped due to recent fall and injury and risk is higher than benefit due to high fall risk. Review of Systems: Respiratory: As mentioned above. Cardiovascular: As mentioned above. All other systems reviewed and negative. 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 Fregoso; chronic constipation; chronic kidney disease; benign prostatic hypertrophy; osteoarthritis at multiple sites; lumbar spinal stenosis; and hypokalemia. Chronic systolic heart failure with ejection fraction of 27% as per last echocardiogram done last year in 2020. Past Surgical History: Teeth extraction, coronary artery bypass surgery, surgery for radius and ulna fracture and hip surgery as well as knee surgery. Family History: Mother had Alzheimer disease, diabetes, and tuberculosis. Brother had stroke. Social History: Prior history of smoking, not at present time. Use of alcohol in the past, but quit using alcohol in 2006. Physical Examination: Vital Signs: Temperature 97.3, pulse 67, respiratory rate 16, blood pressure 103/62, oxygen saturation 99%. General: Awake, alert, oriented, not in distress. HEENT: Head atraumatic, normocephalic. Conjunctivae nonerythematous. Sclerae white. Mouth, no thrush or edema noted. Ears/Nose, no mass, lesion, discharge noted. Neck: Supple. No JVD, lymph nodes, bruit, thyromegaly noted. Lungs: Bilateral good equal air entry with presence of some rales noted in lower lung field. Heart: Presence of systolic murmur. No gallop. Abdomen: Soft, bowel sounds normal. No guarding, rigidity, tenderness, mass, hepatosplenomegaly, distention, or bruit noted. Extremities: Bilateral grade 2 pedal edema. Skin: No rash, ulcer, cellulitis. Lymphatics: No lymph node enlargement in neck, supraclavicular, infraclavicular region. Neuro: No focal neurological deficit. Chest: Unremarkable. External Genitalia: Deferred. Rectal: Deferred. Laboratory Data: White count yesterday was 7, hemoglobin 9.3, platelets 279. Today, white count 6.3, hemoglobin 10, platelets 299. Chemistry yesterday: Sodium 138, potassium 3.9, chloride 107, bicarb 26, BUN 42, creatinine 2.14, estimated GFR 32, glucose 93. Liver function tests unremarkable. Initial troponin 205.7 and proBNP was 5534. Second troponin 272 and this morning troponin was 167.8. Today chemistry: Sodium 136, potassium 4.5, chloride 106, bicarb 26, BUN 51, creatinine 2.05. Chest x-ray: No acute cardiopulmonary changes. Impression: 1. Chronic systolic heart failure with acute exacerbation. 2. Acute exacerbation of chronic obstructive pulmonary disease. 3. Chronic kidney disease, stage 3B. 4. Anemia due to chronic kidney disease. 5. Hypothyroidism. 6. Type 2 diabetes mellitus. 7. Hypertension. 8. Hyperlipidemia. 9. Coronary artery disease. 10. Paroxysmal atrial fibrillation. 11. Known alcoholic fatty liver disease. 12. Benign prostatic hypertrophy. 13. Osteoarthritis, multiple sites. 14. Chronic constipation. Plan: We will go ahead and admit the patient to hospital for further evaluation and management of this problem. The patient's last cardiac cath results reviewed, which was from 2020, and at that time, he had about 95% stenosis of mid RCA and had angioplasty with stent placement by Dr. Moscoso, and at that time, we noted that his graft ALBERTO to LAD was patent with 100% occlusion of proximal LAD. So, we will go ahead and consult fisher reef net for his abnormal cardiac enzymes in view of coronary artery disease, paroxysmal atrial fibrillation, and congestive heart failure. We will get echo with Doppler done, which was ordered yesterday. We tried to get this test done, but the technologist was gone for the day, so we will have to wait until Monday. Meanwhile, we will go ahead and give IV steroids and IV antibiotics and I will see him tomorrow for followup. We will monitor his electrolytes, renal function. We will go ahead and order carvedilol, hold if systolic blood pressure less than 110. Diabetes will be managed with sliding scale insulin per order. He was taking Eliquis, but he is at high risk of fall and injury, and recently, he had fallen down resulting in significantly large hematoma left lateral hip and left buttock area, for which he was evaluated in the emergency room and his hip x-ray was negative for fracture. So with that in mind, his risk of complication from use of anticoagulation therapy is higher than the benefit. So, recently during his appointment at office earlier this week, we decided to discontinue his Eliquis and started him on aspirin. I will see him tomorrow for followup. Total time spent 80 minutes that includes reviewing current hospital records including emergency room visit, current hospital records, talking to emergency room provider, reviewing prior office records and prior hospital records including last hospitalization as well as 2 prior cardiac catheterization results and performing today's evaluation and management. I will see him tomorrow for followup. Total time spent was 80 minutes. ANNA/ARMANDO Voice ID: [id number] CAMACHO
[2023-07-30 07:40] LABS: Absolute Lymphocytes (CBC) 0.4 K/uL (0.7-4.9); Absolute Monocytes 0.6 K/uL (0.1-1.3); Absolute Neutrophil 8.6 K/uL (1.8-8.0); Basophils % 0.1 % (0-1.3); Hematocrit 29.5 % (39.6-49.0); Hemoglobin 9.5 g/dL (13.6-17.9); Lymphocytes % 4.5 % (15.3-44.8); MCH 28.8 pg (27.0-35.0); MCHC 32.2 g/dL (32.0-36.0); MCV 89.4 fL (80-100); MPV 7.6 fL (7.6-11.3); Monocytes % 5.9 % (3.3-12.3); Neutrophils % 89.5 % (41.7-73.7); Nucleated Red Blood Cells % 0.1 % (0-0); Platelets 287 thou/uL (152-406); Red Cell Distribution Width 16.4 % (12.1-15.2)
[2023-07-30 07:58] LABS: Anion Gap 8.2 mEq/L (5.0-15.0); Potassium 4.2 mEq/L (3.5-5.1)
[2023-07-30 08:13] LABS: Magnesium 2.7 mg/dL (1.6-2.4); Thyroid Stimulating Hormone 0.455 uIU/mL (0.358-3.740)
--- NOTE | 2023-07-30 14:48 | PN ---
Date of Progress Note: 07/30/2023 Subjective: The patient was seen this morning for followup. No new complaints or problems reported, except ongoing chronic cough complaint. His breathing is better compared to yesterday morning when I saw him. Objective: Vital Signs: Reviewed. HEENT: Examination unremarkable. Lungs: Bilateral good air entry. Clear to auscultation. Heart: Sounds normal. Abdomen: Soft, bowel sounds. No guarding, rigidity, tenderness, or distention. Extremities: Leg edema has improved, now has very trace leg edema. Laboratory Data: White count 9.6, hemoglobin 9.5, platelets 287. Sodium 137, potassium 4.2, chlorid e 106, bicarb 27, BUN 67, creatinine 2.15, glucose 179. TSH 0.455. Impression: 1.Congestive heart failure, chronic, systolic, with acute exacerbation. 2.Chronic obstructive pulmonary disease. 3.Chronic kidney disease, stage 3B. 4.Atrial fibrillation. 5.Anemia due to chronic kidney disease. Plan: Patient remains on telemetry and throughout this hospital stay, he has gone from sinus rhythm to atrial fibrillation off and on. He was on Eliquis as outpatient, which I have recently discontinu ed because of fall and injury. He had very large hematoma on the left hip and his balance is not goo d. He is at high risk of fall and injury, so risk of complication is higher with ongoing anticoagula tion use than the benefit. We will continue to follow up with motorsports technician regarding this along with congestive heart failure and coronary artery disease problem. We will continue his diuretic therapy . I will see him tomorrow morning for followup. His cough is very chronic for many, many years and no need for an y further intervention on that. ANNA/MODL Voice ID: [id number] Report ID: [id number]
[2023-07-31 03:28] LABS: Absolute Lymphocytes (CBC) 0.2 K/uL (0.7-4.9); Absolute Monocytes 0.6 K/uL (0.1-1.3); Absolute Neutrophil 7.5 K/uL (1.8-8.0); Basophils % 0.1 % (0-1.3); Hematocrit 27.1 % (39.6-49.0); Hemoglobin 8.6 g/dL (13.6-17.9); Lymphocytes % 2.3 % (15.3-44.8); MCH 28.5 pg (27.0-35.0); MCHC 31.9 g/dL (32.0-36.0); MCV 89.4 fL (80-100); MPV 7.6 fL (7.6-11.3); Nucleated Red Blood Cells % 0.3 % (0-0); Platelets 248 thou/uL (152-406); RBC Red Blood Cell Count 3.03 M/uL (4.33-5.43); Red Cell Distribution Width 16.3 % (12.1-15.2)
[2023-07-31 03:31] LABS: Neutrophils % 90.6 % (41.7-73.7)
[2023-07-31 03:44] LABS: Anion Gap 6.5 mEq/L (5.0-15.0); Potassium 4.5 mEq/L (3.5-5.1)
[2023-07-31 14:11] VITALS: BP 118/70; TEMP 97; O2SAT 100
--- NOTE | 2023-07-31 14:44 | ECHO ---
HEIGHT: 5 ft 10 in WEIGHT: 204 lb 0 oz DATE OF STUDY: 07/31/[address]: Jana Barnard 2-DIMENSIONAL: YES M.MODE: YES DOPPLER: YES COLOR FLOW: YES TDS: PORTABLE: YES DEFINITY: BUBBLE STUDY: DIAGNOSIS: SHORTNESS OF BREATH CARDIAC HISTORY: CATHERIZATION: NO SURGERY: NO PROSTHETIC VALVE: NO PACEMAKER: NO MEASUREMENTS (cm) DIASTOLIC (NORMALS) SYSTOLIC (NORMALS) IVSd 1.1 (0.6-1.2) LA Diam 4.5 (1.9-4.0) LVEF 58% LVIDd 4.2 (3.5-5.7) LVIDs 2.9 (2.0-3.5) %FS 30% LVPWd 1.2 (0.6-1.2) Ao Diam 3.2 (2.0-3.7) 2 DIMENSIONAL ASSESSMENT: RIGHT ATRIUM: ENLARGED LEFT ATRIUM: ENLARGED RIGHT VENTRICLE: DILATED WITH NORMAL FUNCTION LEFT VENTRICLE: NORMAL TRICUSPID VALVE: SEVERE TRICUSPID REGURGITATION MITRAL VALVE: MILD MITRAL REGURGITATION PULMONIC VALVE: MILD PULMONIC INSUFFICIENCY AORTIC VALVE: NORMAL PERICARDIAL EFFUSION: NONE AORTIC ROOT: NORMAL LEFT VENTRICULAR WALL MOTION: NORMAL DOPPLER/COLOR FLOW: SEE BELOW COMMENTS: 1. NORMAL LEFT VENTRICULAR EJECTION FRACTION 55-60% WITH NORMAL WALL MOTION 2. BI-ATRIAL ENLARGEMENT 3. DILATED RIGHT VENTRICLE WITH NORMAL FUNCTION 4. SEVERE TRICUSPID REGURGITATION 5. MILD MITRAL REGURGITATION TECHNOLOGIST: JODEE LEA
--- NOTE | 2023-07-31 14:46 | EKG ---
Test Date: 2023-07-28 Test Time: 15:05:03 Surgical Supply Assistant: JUSTYNA MEASUREMENT RESULTS: Intervals: Rate: 80 MS: QRSD: 164 QT: 444 QTc: 512 [place]: P: MS: QRS: -85 T: -8 INTERPRETIVE STATEMENTS: Atrial fibrillation Left axis deviation Right bundle branch block Inferior infarct, age undetermined Anterolateral infarct, age undetermined Abnormal ECG Compared to ECG 01/30/2023 17:37:29 No significant changes Electronically Signed On 07-31-23 14:40:00 CDT by Orville Pena
--- NOTE | 2023-08-01 06:57 | DS ---
Date of Discharge: 07/31/2023 Disposition: Discharged to go home. Physical Examination: HEENT: Unremarkable. Lungs: Clear to auscultation. No wheezing. No rales. Heart: Sounds normal. Abdomen: Soft. Bowel sounds normal. No guarding, rigidity, tenderness, distention. Extremities: No leg edema. Laboratory Data: Upon admission, white count 7, hemoglobin 9.3, platelets 279. Today, white count 8 .3, hemoglobin 8.6, platelets 248. For chemistry, today, sodium 136, potassium 4.5, chloride 108, bi carb 26, BUN 72, creatinine 1.86, glucose 157. His hemoglobin A1c done during this hospitalization w as 5.5. Upon admission, sodium 138, potassium 3.9, chloride 107, bicarb 26, BUN 42, creatinine 2.14, glucose 93. Liver function tests unremarkable. Initial troponin 205.7, second troponin 222.2, last troponin 167.8. Hospital Course: This is a 72-year-old male patient who was admitted to the hospital with cough and shortness of breath. Please see dictated H and P for more information. The patient was admitted to the hospital with acute exacerbation of chronic systolic heart failure. After he was evaluated, he w as admitted to the hospital, was started on IV diuretic therapy. We monitored his electrolytes and r enal function. Cardiology consultation was requested from Dr. Pena, who evaluated the patient and Dr. Pena was requested to evaluate him for coronary artery disease, CHF, as well as atrial fibrilla tion problem. The patient was taking chronic anticoagulation therapy so far, but his balance is not good and he is at high risk of fall and injury, and recently he fell down and ended up having a very large hematoma over left buttock and left lateral posterior hip region, for which he was evaluated at office and subsequently in emergency room and his hip x-ray was negative. After this recent fall an d injury, however, there is question and concerns about safety of long-term anticoagulation therapy i n someone like him and in my opinion, risk of bleeding complication is higher than the benefit, so as outpatient we discontinued his Eliquis and started him on aspirin 81 mg daily, and I did c ommunicate all these details with Dr. Pena and he agrees with that and on outpatient basis he will plan to perform Watchman's procedure on him. The patient's overall condition has improved and today after echocardiogram was done, he was discharged to go home in stable condition. He was instructed t hat he should bring all his home medication bottles to the office and he should come see me this week at the office as we are concerned about him may not be taking his medications as prescribed, but in any case, I have advised him to bring all his medication bottles to the office this week at the time of followup appointment. Once again he was instructed today not to take Eliquis and to continue to t nisreen aspirin. Discharge Diagnoses: 1.Congestive heart failure, chronic, systolic, with acute exacerbation. 2.Acute exacerbation of chronic obstructive pulmonary disease. 3.Chronic kidney disease, stage 3B. 4.Anemia due to chronic kidney disease. 5.Hypothyroidism. 6.Type 2 diabetes mellitus. 7.Hyperlipidemia. 8.Hypertension. 9.Coronary artery disease. 10.Paroxysmal atrial fibrillation. 11.Nonalcoholic fatty liver disease. 12.Benign prostatic hypertrophy. 13.Osteoarthritis, multiple sites. 14.Chronic constipation. Total time spent today was 40 minutes. ANNA/ARMANDO Voice ID: [id number] Report ID: [id number]
== END 2023-07-31 13:20 | disposition home or self-care (01) | DRG 291 ==
LOC: ER 13:39 → ERHOLD 15:57 → UNDOADMIN 16:21 → ERHOLD 16:21 → 4TH 17:52 → ERHOLD 17:52
PROVIDERS: ADMIT Internal Medicine; ATTEND Internal Medicine
DX: I13.0 Hypertensive heart and chronic kidney disease with heart failure and stage 1 through stage 4 chronic kidney disease, or unspecified chronic kidney disease (principal); I50.23 Acute on chronic systolic (congestive) heart failure; J44.1 Chronic obstructive pulmonary disease with (acute) exacerbation; N18.32 Chronic kidney disease, stage 3b; E11.22 Type 2 diabetes mellitus with diabetic chronic kidney disease; D63.1 Anemia in chronic kidney disease; E03.9 Hypothyroidism, unspecified; J06.9 Acute upper respiratory infection, unspecified; E78.5 Hyperlipidemia, unspecified; J30.9 Allergic rhinitis, unspecified; I48.0 Paroxysmal atrial fibrillation; K70.0 Alcoholic fatty liver; N40.0 Benign prostatic hyperplasia without lower urinary tract symptoms; K59.09 Other constipation; M19.09 Primary osteoarthritis, other specified site; I25.10 Atherosclerotic heart disease of native coronary artery without angina pectoris; I25.2 Old myocardial infarction; Z95.1 Presence of aortocoronary bypass graft; Z95.5 Presence of coronary angioplasty implant and graft; Z88.8 Allergy status to other drugs, medicaments and biological substances; Z11.52 Encounter for screening for COVID-19; Z86.73 Personal history of transient ischemic attack (TIA), and cerebral infarction without residual deficits
CPT/HCPCS: 36415; 71045; 80048; 80076; 82947; 83036; 83735; 83880; 84443; 84484; 85025; 85610; 87070; 87077; 87186; 87205; 87804; 87811; 93005; 93306; 94640; 96374; 96375; 99285; J1644; J1815; J1940; J2919; J2920; J7613; J7644

== ENCOUNTER 2023-08-19 08:31 | Inpatient (IN) | payer OTHER ==
--- OUTSIDE RECORDS SUMMARY | 2023-08-19 08:34 | XMS REPORT | Clinical Summary ---
Author Name Unknown Organization [facility] Address [address] [place] [address] Care Team Providers Care Construction Assistant Name Role Phone Ray Veliz MD Unavailable [phone] Dru Smith MD Primary Care Provider [phone] Allergies Active Allergy Reactions Criticality Noted Date Comments Povidone-Iodine Rash Low 09/16/2020 Medications Medication Sig Dispensed Refills Start Date End Date Status albuterol (VENTOLIN HFA,PROAIR HFA) 90 mcg/puff inhaler Inhale 1-2 puffs by mouth every 6 (six) hours as needed for wheezing or shortness of breath. 10/05/2019 Active atorvastatin (LIPITOR) 80 mg tablet TAKE 1 TABLET BY MOUTH DAILY AT BEDTIME 07/07/2020 Active clopidogrel (PLAVIX) 75 mg tablet TAKE 1 TABLET BY MOUTH DAILY 07/17/2020 Active levocetirizine (XYZAL) 5 MG tablet Take 5 mg by mouth every evening. 10/10/2019 Active levothyroxine (SYNTHROID, LEVOTHROID) 25 mcg tablet TAKE 1 TABLET BY MOUTH DAILY 07/02/2020 Active Tradjenta 5 mg tab Take 5 mg by mouth daily. 07/02/2020 Active montelukast (SINGULAIR) 10 mg tablet TAKE 1 TABLET BY MOUTH DAILY 07/17/2020 Active pantoprazole (PROTONIX) 40 mg EC tablet Take 40 mg by mouth daily with breakfast. 01/29/2020 Active potassium chloride (MICRO-K) 10 mEq CR capsule Take 10 mEq by mouth daily. Hold for serum potassium greater than 4.5 mEq/L 07/17/2020 Active rOPINIRole (REQUIP) 1 mg tablet Take 1 mg by mouth 2 (two) times a day as needed (restless legs). 06/17/2020 Active traMADol (ULTRAM) 50 mg tablet TAKE 1 TABLET BY MOUTH THREE TIMES DAILY NEEDED FOR PAIN 09/02/2020 Active senna-docusate (sennosides-docusat e sodium) 8.6 mg-50 mg tablet Take 1 tablet by mouth twice daily. Hold for loose stools. Active sodium chloride-sodium bicarbonate (SALT AND SODA) mouthwashIndication s:Diffuse high grade B-cell lymphoma Swish and spit 10 mL every 6 (six) hours. Use 2 teaspoonfuls and dissolve in 1 quart (960 mL) of warm water. To prevent mouth sores 09/21/2020 Active ondansetron (Zofran) 8 mg tabletIndications:D [...] mg) by mouth every 12 (twelve) hours. 11/04/2020 Active ipratropium-albuter ol (DUO-NEB) 0.5 mg-2.5 mg/3 mL nebulizer solutionIndications :Acute respiratory failure with hypoxia Inhale 1 vial (3 mL) by nebulization every 6 (six) hours. 11/04/2020 Active metoprolol tartrate (LOPRESSOR) 25 mg tabletIndications:D iffuse high grade B-cell lymphoma Take 1 tablet (25 mg) by mouth every 12 (twelve) hours. Hold for systolic blood pressure less than 110 mmHg or heart rate less than 60 beats per minute. 11/04/2020 Active torsemide (DEMADEX) 20 mg tabletIndications:D iffuse high grade B-cell lymphoma Take 1 tablet (20 mg) by mouth daily. Hold for systolic blood pressure less than 110 mmHg. 11/05/2020 Active entecavir (BARACLUDE) 0.5 mg tabletIndications:H epatitis B carrier Take 1 tablet (0.5 mg) by mouth every 72 hours. To prevent viral infection 10 tablet 2 11/13/2020 Active Active Problems Problem Noted Date Diagnosed Date Paroxysmal atrial fibrillation 03/16/2021 Last Assessment & Plan: Patient was seen by inpatient crm marketing executive in September 2020 for atrial fibrillation with last EKG done October 28, 2020 showing return to sinus rhythm. Patient is asymptomatic for palpitations or irregular heartbeats. He is currently on carvedilol 6.25 mg p.o. twice daily in addition to Eliquis 5 mg p.o. twice daily with no bleeding problems. Unfortunately patient [place] from [place] therefore we do not have any updated labs nor EKG since his visit in October. Patient will continue his current regimen and I have confirmed that he has established a follow-up with his local crm marketing executive in March for further management. Clostridioides difficile [...] Due Date Last Done Comments COVID-19 Vaccine ( season) 2022 Influenza Vaccine 11/26/2023 Medical Devices Implanted Type Area Technical Producer Device Identifier Shelf Expiration Date Model / Serial / Lot Metalware Metalware Right: Arm Description:pt sts he has a metal ryan in r arm Stent Stent Heart Advance Directives Documents on File Type Date Recorded Patient Suede Cleaner Expl anation Advance Directives: Medical Power of Cannery Worker 11/02/2020 Medical Power of Att orney * Full Code (Latest Code Status on File) Date Activated Date Inactivated Comments 10/07/2020 12:02 PM 11/14/2020 4:41 PM * Full Code Date Activated Date Inactivated Comments 09/17/2020 12:45 PM 09/23/2020 7:59 PM Care Teams Construction Assistant Relationship Specialty Start Date End Date Ray Veliz MD [address] [place] [phone] PCP - External Referring Internal Medicine 09/03/20 Dru Smith MD [facility] [place] [address] PCP - General Lymphoma and Myeloma 09/16/20
[2023-08-19] MEDS ORDERED: NA CHLORIDE 0.9% 1,000 ML ONE (08:50)
[2023-08-19] MEDS ORDERED: CEFTRIAXONE 1000 MG/VIAL ONE (08:50)
[2023-08-19] MEDS ORDERED: NA CHLORIDE 0.9% 500 ML ONE (08:50)
[2023-08-19] MEDS ORDERED: IPRATROPIUM BROM 0.5MG/2.5ML ONE (09:12)
[2023-08-19] MEDS ORDERED: LEVALBUTEROL 1.25 MG/3 ML NEB ONE (09:12)
[2023-08-19] MEDS ORDERED: METHYLPREDNISOLONE 125 MG INJ ONE (09:12)
[2023-08-19 09:20] LABS: Absolute Basophils 0.1 K/uL (0-0.5); Absolute Eosinophils 0.3 K/uL (0-0.5); Absolute Lymphocytes (CBC) 1.2 K/uL (0.7-4.9); Absolute Monocytes 0.9 K/uL (0.1-1.3); Absolute Neutrophil 3.2 K/uL (1.8-8.0); Basophils % 1.6 % (0-1.3); Eosinophils % 4.5 % (0-4.4); Hematocrit 36.8 % (39.6-49.0); Hemoglobin 11.8 g/dL (13.6-17.9); MCH 28.5 pg (27.0-35.0); MCV 89.2 fL (80-100); MPV 7.7 fL (7.6-11.3); Monocytes % 15.4 % (3.3-12.3); Neutrophils % 56.5 % (41.7-73.7); Platelets 221 thou/uL (152-406); RBC Red Blood Cell Count 4.13 M/uL (4.33-5.43); Red Cell Distribution Width 16.4 % (12.1-15.2)
[2023-08-19 09:21] LABS: PT Prothrombin Time 12.8 SECONDS (9.5-12.5); Protime INR 1.17
[2023-08-19 09:36] LABS: Albumin 3.6 g/dL (3.4-5.0); Albumin/Globulin Ratio 0.9 (1.1-1.8); Anion Gap 10.2 mEq/L (5.0-15.0); Bilirubin Direct 0.3 mg/dL (0-0.2); Bilirubin Indirect, Calculated 0.2 mg/dL (0.2-0.8); Bilirubin Total 0.5 mg/dL (0.2-1.0); Globulin 3.9 g/dL (2.3-3.5); Magnesium 2.5 mg/dL (1.6-2.4); Potassium 4.2 mEq/L (3.5-5.1); Protein, Total 7.5 g/dL (6.4-8.2)
[2023-08-19 09:42] LABS: Troponin High Sensitivity 168.1 pg/mL (<58.9)
--- NOTE | 2023-08-19 10:00 | RAD REPORT ---
EXAM DESCRIPTION: RAD - Chest Single View - 08/19/2023 9:53 am CLINICAL HISTORY: COUGH COMPARISON: Chest Single View dated 07/28/2023; Chest Single View dated 06/25/2023; Chest Single View d ated 04/18/2023; Chest Single View dated 01/30/2023 FINDINGS: Lines: None. Lungs: Low lung volumes. No definite acute process. Pleural: No significant pleural effusions or pneumothorax. Cardiac: Cardiomegaly. Mediastinum: Within normal limits. Bones: No acute fractures. Sternotomy. Other: Colon interposed to the liver and diaphragm on the right. IMPRESSION: No acute cardiopulmonary disease. Low lung volumes.
[2023-08-19 10:23] LABS: SARS-CoV-2 Antigen CONTROL BLUE LINE VIS/BG OK; SARS-CoV-2 Antigen Rapid Res Negative (Negative)
[2023-08-19] MEDS ORDERED: ASPIRIN 81 MG CHEWABLE TABLET ONE ×2 (11:03→11:04)
--- NOTE | 2023-08-19 11:10 | RAD REPORT ---
EXAM DESCRIPTION: CTChest Abd Pelvis Wo Con - 08/19/2023 10:57 am CLINICAL HISTORY: Abdominal distention;Chest pain;Cough COMPARISON: Thorax W/ Con dated 08/26/2020; Thorax Wo Con dated 08/12/2018; Chest Single View dated 07/26 TECHNIQUE: CT of the chest, abdomen, and pelvis was performed. All CT scans are performed using dose optimization technique as appropriate and may include automated exposure control or mA/KV adjustment according to patient size. FINDINGS: Thorax: Motion artifact. Chest Wall: No abnormal mass Lungs: Motion artifact. Likely mild basilar atelectasis . Pleura: No effusions or pneumothorax. Stacy/Mediastinum: No lymphadenopathy. Aorta/Pulmonary Arteries: Unremarkable Heart: Cardiomegaly. Coronary artery calcification Abdomen/Pelvis: Motion artifact. Liver: No acute abnormality or suspicious lesions.Colon interposed to the right hepatic lobe and righ t hemidiaphragm Biliary: No biliary ductal dilatation. Stomach: No significant focal abnormality. Duodenum: No significant focal abnormality. Pancreas: No significant abnormality. Spleen: No significant abnormality. Adrenal: No suspicious lesions. Kidney/ureter: No hydronephrosis. No renal calculi. Retroperitoneum: No retroperitoneal adenopathy. Vascular: No aneurysm. Atherosclerosis . Bowel: No significant focal abnormality. Peritoneum: No ascites or free air. . Bladder: Grossly unremarkable. Reproductive: No adnexal masses. Bones: No acute fracture. Bridging osteophytes in the spine consistent with diffuse idiopathic skelet al hyperostosis (DISH). Sternotomy. Left hip arthroplasty. Avascular necrosis in the right femoral he ad. Other: n/a IMPRESSION: No acute findings within the chest, abdomen, or pelvis. Motion artifact.
--- NOTE | 2023-08-19 11:32 | RAD REPORT ---
EXAM DESCRIPTION: US - Extrem Venous W Compress Ramón - 08/19/2023 11:13 am CLINICAL HISTORY: Pain;Swelling COMPARISON: Extrem Venous W Compress Ramón dated 06/27/2023 TECHNIQUE: Real-time sonographic evaluation of the lower extremity deep venous systems was performed using color Doppler, grayscale, and compression. FINDINGS: Bilateral lower extremities. Normal compressibility, flow augmentation, phasic flow and spontaneous flow is identified in both the left and right lower extremity deep venous systems. No intraluminal filling defects seen. Popliteal fossa cyst measuring 4.9 x 2.7 cm on the left side. IMPRESSION: No DVT in either lower extremity. Popliteal fossa cyst on the left.
--- NOTE | 2023-08-19 11:48 | EDPHYS ---
Physician Documentation [facility] Name: Valerio Berg Age: 72 yrs Sex: Male : 1950 Arrival Date: 08/19/2023 Time: 08:31 Bed 19 Private MD: ED Physician Giancarlo Barrientos HPI: 08/18 09:08 This 72 yrs old Black Male presents to ER via Ambulatory with complaints of Cough, gasper Shortness Of Breath. 09:08 The patient or guardian reports airway noise, cough, difficulty breathing. Onset: The gasper symptoms/episode began/occurred 1 day(s) ago. Onset: The symptoms/episode began/occurred acutely. Severity of symptoms: At their worst the symptoms were mild, moderate, in the emergency department the symptoms are unchanged. Modifying factors: The symptoms are alleviated by nothing, the symptoms are aggravated by exertion. Associated signs and symptoms: Pertinent positives: nausea. The patient has experienced similar episodes in the past, multiple times. Historical: - Allergies: 08:59 Betadine; hb 08:59 Povidone-Iodine; hb - Home Meds: 08:59 Furosemide Oral [Active]; inhaler [Active]; hb - PMHx: 08:59 Borderline Diabetes; COPD; CVA; Hypothyroidism; Myocardial infarction; hb - Immunization history:: Adult Immunizations up to date. - Infectious Disease History:: Denies. - Social history:: Smoking status: unknown. ROS: 09:16 Constitutional: Negative for fever, chills, and weight loss, Eyes: Negative for injury, gasper pain, redness, and discharge, ENT: Negative for injury, pain, and discharge, Neck: Negative for injury, pain, and swelling, Cardiovascular: Negative for chest pain, palpitations, and edema, Abdomen/GI: Negative for abdominal pain, nausea, vomiting, diarrhea, and constipation, Back: Negative for injury and pain, : Negative for injury, bleeding, discharge, and swelling, MS/Extremity: Negative for injury and deformity, Skin: Negative for injury, rash, and discoloration, Neuro: Negative for headache, weakness, numbness, tingling, and seizure, Psych: Negative for depression, anxiety, suicide ideation, homicidal ideation, and hallucinations, Allergy/Immunology: Negative for hives, rash, and allergies, Endocrine: Negative for neck swelling, polydipsia, polyuria, polyphagia, and marked weight changes, Hematologic/Lymphatic: Negative for swollen nodes, abnormal bleeding, and unusual bruising, 09:16 Respiratory: Positive for cough, shortness of breath, at rest. Exam: 09:16 Constitutional: This is a well developed, well nourished patient who is awake, alert, gasper and in no acute distress. Head/Face: Normocephalic, atraumatic. Eyes: Pupils equal round and reactive to light, extra-ocular motions intact. Lids and lashes normal. Conjunctiva and sclera are non-icteric and not injected. Cornea within normal limits. Periorbital areas with no swelling, redness, or edema. ENT: Nares patent. No nasal discharge, no septal abnormalities noted. Tympanic membranes are normal and external auditory canals are clear. Oropharynx with no redness, swelling, or masses, exudates, or evidence of obstruction, uvula midline. Mucous membranes moist. Neck: Trachea midline, no thyromegaly or masses palpated, and no cervical lymphadenopathy. Supple, full range of motion without nuchal rigidity, or vertebral point tenderness. No Meningismus. Chest/axilla: Normal chest wall appearance and motion. Nontender with no deformity. No lesions are appreciated. Cardiovascular: Regular rate and rhythm with a normal S1 and S2. No gallops, murmurs, or rubs. Normal PMI, no JVD. No pulse deficits. Respiratory: Lungs have equal breath sounds bilaterally, clear to auscultation and percussion. No rales, rhonchi or wheezes noted. No increased work of breathing, no retractions or nasal flaring. Abdomen/GI: Soft, non-tender, with normal bowel sounds. No distension or tympany. No guarding or rebound. No evidence of tenderness throughout. Back: No spinal tenderness. No costovertebral tenderness. Full range of motion. Male : Normal genitalia with no discharge or lesions. Skin: Warm, dry with normal turgor. Normal color with no rashes, no lesions, and no evidence of cellulitis. MS/ Extremity: Pulses equal, no cyanosis. Neurovascular intact. Full, normal range of motion. Neuro: Awake and alert, GCS 15, oriented to person, place, time, and situation. Cranial nerves II-XII grossly intact. Motor strength 5/5 in all extremities. Sensory grossly intact. Cerebellar exam normal. Normal gait. Psych: Awake, alert, with orientation to person, place and time. Behavior, mood, and affect are within normal limits. 09:16 ECG was reviewed by the Attending Physician. Vital Signs: 08:40 BP 96 / 66; Pulse 88; Resp 26; Temp 97.4(TE); Pulse Ox 97% on R/A; Weight 90.72 kg; hb Height 5 ft. 10 in. ; Pain 0/10; 09:17 BP 110 / 75; Pulse 90; Resp 26; Pulse Ox 99% on Nebulizer Mask; db 11:40 BP 117 / 76; Pulse 69; Resp 18; Pulse Ox 96% on R/A; db 12:00 BP 115 / 79; Pulse 71; Resp 17; Temp 97.8; Pulse Ox 100% on R/A; db 08:40 Body Mass Index 28.70 (90.72 kg, 177.8 cm) hb 08:40 Pain Scale: Adult hb MDM: 08:35 Patient medically screened. [facility] 09:17 Differential diagnosis: Anemia Anxiety Reaction asthma, Bronchitis CHF exacerbation, gasper Chronic Obstructive Pulmonary Disease Myocardial Infarction pneumonia, pulmonary edema, Pulmonary Embolism reactive airway disease, Sepsis Unstable Angina. Antibiotic administration: Rocephin and Zithromax given. Differential Diagnosis: Obstructed Airway Bronchitis Influenza Upper Respiratory Infection Sinusitis Asthma Exacerbation Viral Syndrome Pneumonia. Immunization status: Pneumococcal vaccine: within last 5 years. Influenza vaccine: within last 5 years. Data reviewed: vital signs, nurses notes, old medical records, lab test result(s), CBC, electrolytes, hepatic panel, EKG. Consideration of Admission/Observation Patient was admitted/placed on observation. Escalation of care including admission/observation considered. I considered the following discharge prescriptions or medication management in the emergency department Medications were administered in the Emergency Department. See MAR. Independent interpretation of the following test(s) in the Emergency Department EKG: See my EKG interpretation above. Test considered but Not performed: Ultrasound no 2 d echo. 08/18 08:37 Order name: Basic Metabolic Panel; Complete Time: 10:19 [facility] 08/18 08:37 Order name: CBC with Diff; Complete Time: 10:19 [facility] 08/18 08:37 Order name: LFT's; Complete Time: 10:19 [facility] 08/18 08:37 Order name: Magnesium; Complete Time: 10: [facility] 08/18 08:37 Order name: NT PRO-BNP; Complete Time: 10:19 [facility] 08/18 08:37 Order name: PT-INR; Complete Time: 10:19 [facility] 08/18 08:37 Order name: Troponin HS; Complete Time: 10:19 [facility] 08/18 08:37 Order name: SARS RAPID; Complete Time: 11:21 [facility] 08/18 08:37 Order name: Flu; Complete Time: 11:21 [facility] 08/18 08:37 Order name: Blood Culture Adult (2) [facility] 08/18 08:37 Order name: Lactate w/ 2H reflex if indic.; Complete Time: 10:19 [facility] 08/18 08:37 Order name: XRAY Chest (1 view); Complete Time: 10:19 [facility] 08/18 10:21 Order name: CT Chest Abdomen Pelvis W/O Contrast; Complete Time: 11:21 [facility] 08/18 10:21 Order name: US Extremity Venous W Compression Ramón; Complete Time: 11:38 [facility] 08/18 08:37 Order name: EKG; Complete Time: 08:37 [facility] 08/18 11:53 Order name: CONS Physician Consult [facility] 08/18 08:37 Order name: Cardiac monitoring; Complete Time: 09:09 [facility] 08/18 08:37 Order name: EKG - Nurse/Tech; Complete Time: 09:09 [facility] 08/18 08:37 Order name: IV Saline Lock; Complete Time: 09:10 [facility] 08/18 08:37 Order name: Labs collected and sent; Complete Time: 09:10 [facility] 08/18 08:37 Order name: O2 Per Protocol; Complete Time: 09:10 [facility] 08/18 08:37 Order name: O2 Sat Monitoring; Complete Time: 09:10 [facility] EC:16 Rate is 78 beats/min. Rhythm is irregularly irregular. QRS [place] is Normal. FL interval gasper is normal. QRS interval is normal. QT interval is normal. No Q waves. T waves are Normal. No ST changes noted. Clinical impression: Atrial Fibrillation and No evidence of ischemia. Interpreted by me. Reviewed by me. Administered Medications: 09:15 Drug: Levalbuterol Inhalation 1.25 mg Inhalation once Route: Inhalation; db 09:15 Drug: Ipratropium Inhalation Aerosol 0.5 mg Inhalation once Route: Inhalation; db 11:03 Drug: NS 0.9% IV 1000 ml IV at 125 ml/hr continuous Route: IV; Rate: 125 ml/hr; Site: db right upper arm; 13:04 Follow up: Response: No adverse reaction; IV Status: Infusion continued upon admission db 11:14 Drug: Aspirin PO Chewable Tablet 162 mg PO once Route: PO; db 13:04 Follow up: Response: No adverse reaction db 11:30 Drug: MethylPrednisoLONE IVP 125 mg IVP once Route: IVP; Site: right upper arm; db 13:03 Follow up: Response: No adverse reaction db 11:40 Drug: NS 0.9% IV 500 ml IV at bolus once Route: IV; Rate: bolus; Site: right upper arm; db 13:03 Follow up: Response: No adverse reaction db 11:40 Drug: Rocephin IV 1 grams IV at per protocol once; Given slow IV push per pharmacy db instructions Route: IV; Rate: per protocol; Site: right upper arm; 12:17 Follow up: Response: No adverse reaction; IV Status: Completed infusion; IV Intake: 10mldb 13:03 Not Given (called pharmacist in [facility]): enoxaparin1 mg/kg Sub-Q once db 13:03 Not Given (Patient Refused): [id number] mg IVP once; dilute with 10 mL 0.9% NaCl; db give over 2 minutes Disposition Summary: 08/19/23 11:48 Hospitalization Ordered Notes: Hospitalization Status: Inpatient Admission gasper Provider: Ray Veliz cha [facility] Condition: Stable gasper Problem: new gasper Symptoms: have improved gasper Bed/Room Type: Standard gasper Room Assignment: [facility](08/19/23 11:58) eb Diagnosis - Dyspnea gasper - COPD/ Chronic obstructive pulmonary disease with (acute) exacerbation gasper - Non ST elevation SD gasper - Persistent atrial fibrillation gasper - Unspecified kidney failure - chronic gasper Forms: - Medication Reconciliation Form gasper - SBAR form gasper - Leadership Thank You Letter gasper Signatures: Dispatcher [employer] Giancarlo Canas MD MD cha Baxter, Heather, RN RN Evi Rondon Danielle, RN RN db Corrections: (The following items were deleted from the chart) 11:58 11:48 gasper eb
--- NOTE | 2023-08-19 11:48 | ER ---
Nurse's Notes [facility] Name: Valerio Berg Age: 72 yrs Sex: Male : 1950 Arrival Date: 08/19/2023 Time: 08:31 Bed 19 Private MD: Diagnosis: Dyspnea;COPD/ Chronic obstructive pulmonary disease with (acute) exacerbation;Non ST elevation OR;Persistent atrial fibrillation;Unspecified kidney failure-chronic Presentation: 08/18 08:40 Chief complaint: SOB and cough x 1 week. Coronavirus screen: Client presents with at hb least one sign or symptom that may indicate coronavirus-19. Provider contacted for isolation considerations. Ebola Screen: No symptoms or risks identified at this time. Initial Sepsis Screen: Does the patient meet any 2 criteria? RR > 20 per min. No. Patient's initial sepsis screen is negative. Does the patient have a suspected source of infection? No. Patient's initial sepsis screen is negative. Risk Assessment: Do you want to hurt yourself or someone else? Patient reports no desire to harm self or others. Onset of symptoms was August 12, 2023. 08:40 Method Of Arrival: Ambulatory hb 08:40 Acuity: ADRIÁN 2 hb Triage Assessment: 09:01 General: Appears mild distress. Behavior is cooperative, restless. Pain: Denies pain. hb Neuro: Level of Consciousness is awake, alert, obeys commands, Oriented to person, place, time, situation. Cardiovascular: Patient's skin is warm and dry. Rhythm is atrial fibrillation With PVC's. Respiratory: Reports shortness of breath at rest cough that is productive, Respiratory effort is labored, Respiratory pattern is tachypnea Onset: The symptoms/episode began/occurred 1 week ago, the patient has moderate shortness of breath. Historical: - Allergies: 08:59 Betadine; hb 08:59 Povidone-Iodine; hb - Home Meds: 08:59 Furosemide Oral [Active]; inhaler [Active]; hb - PMHx: 08:59 Borderline Diabetes; COPD; CVA; Hypothyroidism; Myocardial infarction; hb - Immunization history:: Adult Immunizations up to date. - Infectious Disease History:: Denies. - Social history:: Smoking status: unknown. Screenin:45 [facility] [place] ED Fall Risk Assessment (Adult) History of falling in the last 3 months, db including since admission No falls in past 3 months (0 pts) Confusion or Disorientation No (0 pts) Intoxicated or Sedated No (0 pts) Impaired Gait Yes (1 pt) Mobility Assist Device Used Yes (1 pt) Altered Elimination No (0 pt) Score/Fall Risk Level 0 - 2 = Low Risk Oriented to surroundings, Maintained a safe environment. Abuse screen: Denies threats or abuse. Denies injuries from another. Nutritional screening: No deficits noted. Tuberculosis screening: No symptoms or risk factors identified. Assessment: 09:10 Reassessment: Patient appears in no apparent distress at this time. Patient and/or db family updated on plan of care and expected duration. Pain level reassessed. Patient is alert, oriented x 3, equal unlabored respirations, skin warm/dry/pink. General: Appears in no apparent distress. comfortable, Behavior is calm, cooperative. Pain:. Neuro: Level of Consciousness is awake, alert, obeys commands, Oriented to person, place, time, situation. Cardiovascular: Reports shortness of breath. Respiratory: Reports shortness of breath cough that is productive, Airway is patent Respiratory effort is even, unlabored, Respiratory pattern is regular, symmetrical. 10:33 Reassessment: Unable to establish PIV access, Dr. Barrientos notified. Private Wealth Advisor ishmael Carter in route to attempt PIV. 10:44 Reassessment: Private Wealth Advisor Raul MIXON unable to establish PIV access, Dr. Floyd quiñones aware. Vital Signs: 08:40 BP 96 / 66; Pulse 88; Resp 26; Temp 97.4(TE); Pulse Ox 97% on R/A; Weight 90.72 kg; hb Height 5 ft. 10 in. ; Pain 0/10; 09:17 BP 110 / 75; Pulse 90; Resp 26; Pulse Ox 99% on Nebulizer Mask; db 11:40 BP 117 / 76; Pulse 69; Resp 18; Pulse Ox 96% on R/A; db 12:00 BP 115 / 79; Pulse 71; Resp 17; Temp 97.8; Pulse Ox 100% on R/A; db 08:40 Body Mass Index 28.70 (90.72 kg, 177.8 cm) hb 08:40 Pain Scale: Adult hb Vitals: 09:17 Cardiac Rhythm Assessment Irregular Atrial fibrillation. db ED Course: 08:33 Patient arrived in ED. ts1 08:35 Giancarlo Barrientos MD is Attending Physician. gasper 08:37 Lexi Stahl, RN is Primary Nurse. db 08:50 Client placed on continuous cardiac and pulse oximetry monitoring. NIBP monitoring hb applied. residential monitor on. Pulse ox on. NIBP on. 08:52 EKG done, by ED staff, reviewed by Giancarlo Barrientos MD. hb 08:54 Initial lab(s) drawn, by me, sent to lab. First set of blood cultures drawn by me. db Missed attempt(s): 22 gauge in right antecubital area. Bleeding controlled, band aid applied, catheter tip intact. 08:59 Triage completed. hb 09:01 Arm band placed on. hb 09:15 Initial Neb Treatment Given as ordered Patient was instructed and evaluated on db procedure. 09:22 Missed attempt(s): 22 gauge in left antecubital area. Bleeding controlled, band aid db applied, catheter tip intact. 09:22 Second set of blood cultures drawn by ED staff. db 09:37 Missed attempt(s): 22 gauge in left antecubital area. BY ED STAFF. Bleeding controlled, db band aid applied, catheter tip intact. 09:46 Patient has correct armband on for positive identification. Placed in gown. Bed in low db position. Call light in reach. Side rails up X2. Warm blanket given. Pillow given. 09:55 XRAY Chest (1 view) In Process Unspecified. EDMS 10:02 Missed attempt(s): 20 gauge in left antecubital area. Bleeding controlled, band aid hb applied, catheter tip intact. 10:17 Missed attempt(s): 20 gauge in left forearm. Bleeding controlled, band aid applied, hb catheter tip intact. 10:59 CT Chest Abdomen Pelvis W/O Contrast In Process Unspecified. EDMS 11:15 US Extremity Venous W Compression Ramón In Process Unspecified. EDMS 11:30 Inserted saline lock: 20 gauge in right upper arm, using aseptic technique. Ultrasound nj1 guided. Catheter tip well visualized within vasculature during placement. 11:40 Inserted saline lock: 20 gauge in right upper arm, using aseptic technique. ,using db aseptic technique. ULTRASOUND GUIDED IV PLACED BY APURVA STEVENSON. 11:46 Chapo Veliz MD is Hospitalizing Provider. gasper 11:46 Hospitalizing Provider role handed off by Chapo Veliz MD gasper 11:46 Ray Veliz MD is Hospitalizing Provider. gasper Administered Medications: 09:15 Drug: Levalbuterol Inhalation 1.25 mg Inhalation once Route: Inhalation; db 09:15 Drug: Ipratropium Inhalation Aerosol 0.5 mg Inhalation once Route: Inhalation; db 11:03 Drug: NS 0.9% IV 1000 ml IV at 125 ml/hr continuous Route: IV; Rate: 125 ml/hr; Site: db right upper arm; 13:04 Follow up: Response: No adverse reaction; IV Status: Infusion continued upon admission db 11:14 Drug: Aspirin PO Chewable Tablet 162 mg PO once Route: PO; db 13:04 Follow up: Response: No adverse reaction db 11:30 Drug: MethylPrednisoLONE IVP 125 mg IVP once Route: IVP; Site: right upper arm; db 13:03 Follow up: Response: No adverse reaction db 11:40 Drug: NS 0.9% IV 500 ml IV at bolus once Route: IV; Rate: bolus; Site: right upper arm; db 13:03 Follow up: Response: No adverse reaction db 11:40 Drug: Rocephin IV 1 grams IV at per protocol once; Given slow IV push per pharmacy db instructions Route: IV; Rate: per protocol; Site: right upper arm; 12:17 Follow up: Response: No adverse reaction; IV Status: Completed infusion; IV Intake: 10mldb 13:03 Not Given (called pharmacist in [facility]): enoxaparin1 mg/kg Sub-Q once db 13:03 Not Given (Patient Refused): [id number] mg IVP once; dilute with 10 mL 0.9% NaCl; db give over 2 minutes Medication: 12:17 VIS not applicable for this client. db Intake: 12:17 IV: 10ml; Total: 10ml. db Outcome: 11:48 Decision to Hospitalize by Provider[facility] 13:00 Patient left the ED. eb Signatures: Dispatcher [employer] EDMS Giancarlo Barrientos MD MD cha Baxter, Heather RN RN Evi Rondon Danielle, RN RN db Jaco, Norma, RN RN nj1 Karishma Read PAS PAS ts1 Corrections: (The following items were deleted from the chart) 09:29 08:40 BP 96 / 66; Pulse 88bpm; Resp 26bpm; Pulse Ox 97% RA; Temp 97.4F Temporal; Pain hb 0/10, Adult; hb
--- NOTE | 2023-08-19 12:09 | HP ---
Date of Admission: 08/19/2023 Chief Complaint: Cough and shortness of breath. History Of Present Illness: A 72-year-old male patient with multiple chronic comorbidities, also has chronic cough for a long time for many years as a matter of fact, came into emergency room with few days' history of worsening of shortness of breath and worsening of his cough. Denies any fever, chills. No expectoration. No chest pain. After the patient was evaluated in the emergency room this morning, he was admitted to the hospital and I saw him in emergency room and was admitted to hospital on 07/28/2023 and was discharged on 07/31/2023 and at that time of discharge, he was advised to come see me within matter of few days and also to have follow up with stick roller and he has not done either one of those followup appointments today. When I asked him, he told me he just forgot about it. He is at high risk of fall and injury and risk of bleeding complication is more than the benefit from use of anticoagulation therapy, so during last hospital admission, we decided to discontinue his Eliquis and to start him on aspirin and the patient was asked to follow up with stick roller regarding discussion of having Watchman's procedure done, but unfortunately he has not been compliant with those followup appointment recommendations. Allergies: NO KNOWN ALLERGIES. Medications: Albuterol nebulizer treatment 4 times a day as needed, albuterol inhaler 4 times a day as needed, Combivent Respimat inhaler 2 puffs 4 times a day as needed, clopidogrel 75 mg daily, atorvastatin 40 mg daily at bedtime, carvedilol 6.25 mg 2 times a day, Senokot-S 2 tablets daily, furosemide 80 mg 2 times a day, levothyroxine 25 mcg daily, Tradjenta 5 mg daily in morning with breakfast, montelukast 10 mg daily, potassium chloride 20 mEq take half a tabletdaily, ropinirole 1 mg 2 times a day, Entresto 24/26 mg 1 tablet 2 times a day, Valtrex 500 mg daily, Aspirin 81 mg daily. Recently his Eliquis was stopped due to recent fall and injury and risk is higher than benefit due to high fall risk. Review of Systems: Respiratory: As mentioned above. Cardiovascular: As mentioned above. All other systems reviewed and negative. 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 Fregoso; chronic constipation; chronic kidney disease; benign prostatic hypertrophy; osteoarthritis at multiple sites; lumbar spinal stenosis; and hypokalemia. Chronic systolic heart failure with ejection fraction of 27% as per echocardiogram done last year in 2020. Last echocardiogram done on 07/31/2023 shows EF 55 to 60%. Past Surgical History: Teeth extraction, coronary artery bypass surgery, surgeryfor radius and ulna fracture and hip surgery as well as knee surgery. Family History: Mother had Alzheimer disease, diabetes, and tuberculosis. Brother had stroke. Social History: Prior history of smoking, not at present time. Use of alcohol inthe past, but quit using alcohol in 2006 Physical Examination: Vital Signs: Weight 200 pounds, height 5 feet 10 inches, temperature 97.4, pulse 88, respiratory rate 26, blood pressure 96/66, oxygen saturation 97%. General: Awake, alert, oriented, not in distress. HEENT: Head atraumatic, normocephalic. Conjunctivae nonerythematous. Sclerae white. Mouth, no thrush or edema noted. Ears/Nose, no mass, lesion, discharge noted. Neck: Supple. No JVD, lymph nodes, bruit, thyromegaly noted. Lungs: Bilateral equal entry, not using accessory muscles of respiration, but diminished air entry in lower lung, especially left side worse than the right side. Heart: Presence of systolic murmur. No gallop. Abdomen: Soft, bowel sounds normal. No guarding, rigidity, tenderness, mass, hepatosplenomegaly, distention, or bruit noted. Extremities: Trace bilateral leg edema, unchanged from before. Skin: No rash, ulcer, cellulitis. Lymphatics: No lymph node enlargement in neck, supraclavicular, infraclavicular region. Neuro: No focal neurological deficit. Chest: Unremarkable. External Genitalia: Deferred. Rectal: Deferred. Laboratory Data: Troponin today is 168.1, and he always has a high troponin level. For example, last hospital admission, he had 3 troponin levels and they were 205, 222, and last one was 167.8. His April 18, 2023, troponin level was 187 and January 31, 2023, troponin level was 101. White count 5.7, hemoglobin 11.8, platelets 221. His last echocardiogram on 07/31/2023 showed normal ejection fraction 55% to 60%, dilated right ventricle with normal function, severe tricuspid regurgitation, mild mitral regurgitation. Chest x-ray shows possibility of pleural fluid in the left lung base along with cardiomegaly and we will obtain further information with CAT scan of the chest without contrast. Impression: 1. Chronic obstructive pulmonary disease, with acute exacerbation. 2. Chronic systolic congestive heart failure, with acute exacerbation. 3. Chronic kidney disease stage IIIB. 4. Anemia due to chronic kidney disease. 5. Hypothyroidism. 6. Type 2 diabetes mellitus. 7. Hypertension. 8. Hyperlipidemia. 9. Coronary artery disease. 10. Paroxysmal atrial fibrillation. 11. Nonalcoholic fatty liver disease. 12. Benign prostatic hypertrophy. 13. Osteoarthritis, multiple sites. 14. Chronic constipation. Plan: We will go ahead and admit the patient to hospital for further evaluation and management of this problem. The patient is appropriate for inpatient and is expected to spend 2 midnights in hospital. We will follow up on CT scan of the chest which will be done today without contrast. We will also go ahead and continue oxygen nebulizer treatment for COPD problem. For his congestive heart failure, we will continue his diuretic therapy. For atrial fibrillation, he is no longer on anticoagulation therapy because risk of anticoagulation therapy is more than the benefit, and we will just continue anti-platelet therapy for him and once again I encouraged him to follow up with stick roller regarding discussion of Watchman's procedure on outpatient basis. For hypothyroidism, we will continue his levothyroxine per order and we will monitor his electrolytes and renal function and I will see him tomorrow for followup. Details and plan of treatment discussed with him. Total time spent today was 80 minutes including review of current emergency room records and documentation as well as review of last hospital admission record from 07/28/2023, review of prior office records and performing today's evaluation and management. ANNA/ARMANDO Voice ID: [id number] CAMACHO
[2023-08-19 13:05] VITALS: BMI 28.7
[2023-08-19] MEDS ORDERED: IPRATROPIUM BROM 0.5MG/2.5ML NEB PRN (17:51)
[2023-08-19] MEDS ORDERED: ALBUTEROL 2.5 MG/3 ML NEB SOL NEB PRN (17:51)
[2023-08-19] MEDS ORDERED: ONDANSETRON 4 MG/2 ML VIAL IV PRN (17:51)
[2023-08-19] MEDS ORDERED: MORPHINE 2 MG/ML SYR IV PRN (17:51)
[2023-08-19] MEDS ORDERED: ACETAMINOPHEN 500 MG TAB PO PRN (17:51)
[2023-08-19] MEDS: FUROSEMIDE 20 MG/ 2ML VIAL IV SCH (18:16)
[2023-08-19] MEDS: METHYLPREDNISOLONE 40 MG INJ IV SCH (18:16)
[2023-08-19] MEDS: ATORVASTATIN 40 MG TAB PO SCH (20:08)
[2023-08-19] MEDS: FAMOTIDINE 20 MG/2 ML VIAL IV SCH (20:08)
[2023-08-19] MEDS: ROPINIROLE HCL 1 MG TAB PO SCH (20:09)
[2023-08-20 03:23] LABS: Absolute Lymphocytes (CBC) 0.5 K/uL (0.7-4.9); Absolute Monocytes 0.2 K/uL (0.1-1.3); Absolute Neutrophil 2.6 K/uL (1.8-8.0); Basophils % 0.8 % (0-1.3); Hematocrit 35.1 % (39.6-49.0); Hemoglobin 11.1 g/dL (13.6-17.9); Lymphocytes % 14.9 % (15.3-44.8); MCH 28.3 pg (27.0-35.0); MCHC 31.6 g/dL (32.0-36.0); MCV 89.5 fL (80-100); MPV 8.5 fL (7.6-11.3); Monocytes % 5.2 % (3.3-12.3); Neutrophils % 79.1 % (41.7-73.7); Platelets 225 thou/uL (152-406); RBC Red Blood Cell Count 3.93 M/uL (4.33-5.43); Red Cell Distribution Width 16.7 % (12.1-15.2)
[2023-08-20 03:53] LABS: Anion Gap 8.4 mEq/L (5.0-15.0)
[2023-08-20 03:56] LABS: Potassium 5.4 mEq/L (3.5-5.1)
[2023-08-20] MEDS: ASPIRIN EC 81 MG TAB PO SCH (09:18)
[2023-08-20] MEDS: ENOXAPARIN 100 MG/ML SYR SQ SCH (09:18)
[2023-08-20] MEDS: CEFTRIAXONE 1,000 MG in NA CHLORIDE 0.9% 50 ML IVPB SCH (09:18)
[2023-08-20] MEDS: SOD POLYSTYREN SUL 15 GM/60 ML UCUP PO ONE (09:22)
[2023-08-20] MEDS: LEVOTHYROXINE SOD 0.025 MG TAB PO SCH (09:27)
--- NOTE | 2023-08-20 12:25 | P.CNS ---
Date of Consult: 08/20/23 Chief Complaint: Shortness of breath History of Present Illness: Patient with PMH of atrial fibrillation. diastolic heart failure, severe TR, and COPD presented with worsening SOB for the last few days associated with bilateral lower extremities swelling and productive cough, denies any other cardiac symptoms, no chest pain, no palpitations. Allergies povidone-iodine [From Betadine] Allergy (Mild, Verified 07/28/23 22:44) Rash Home Medications: Albuterol Inhaler [Ventolin Inhaler*] 2 puff IN QID PRN 12/05/21 Albuterol Neb [Proventil 0.083% Neb Soln] 1 puff NEB QID PRN 12/05/21 Apixaban [Eliquis *] 1 tab PO BID 12/05/21 Atorvastatin Calcium [Lipitor] 1 tab PO BEDTIME 12/05/21 Ipratropium/Albuterol Sulfate [Combivent Respimat 20-100 Mcg] 2 puff IN QID 12/05/21 Levothyroxine Sodium 1 tab PO DAILY 12/05/21 Linagliptin [Tradjenta] 1 tab PO DAILY 12/05/21 Montelukast [Singulair*] 1 tab PO DAILY 12/05/21 Ropinirole HCl [Requip*] 1 tab PO BID 12/05/21 Sacubitril/Valsartan [Entresto 24 mg-26 mg Tablet] 1 tab PO BID 12/05/21 Valacyclovir HCl [Valtrex] 1 tab PO DAILY 12/05/21 Potassium Chloride [Klor-Con] 0.5 tab PO DAILY 08/25/22 Furosemide 1 tab PO BID 07/30/23 Pantoprazole Sodium [Protonix] 1 tab PO DAILY 07/30/23 Sennosides [Senokot] 2 tab PO DAILY 07/30/23 - Past Medical/Surgical History Diabetic: No -: DM -: COPD -: Hx TN -: Hx Diffuse Large B Cell Lymphoma (DLBCL) -: Hyperlipidemia -: HTN -: Hypothyroidism -: Osteoarthritis -: cva -: knee replacement Left -: open heart surgery -: left hip repLACEMENT -: METAL PLATED IN RIGHT ARM - Social History Smoking Status: Unknown if ever smoked Alcohol use: No CD- Drugs: No Caffeine use: Yes Place of Residence: Home Review of Systems 10-point ROS is otherwise unremarkable Physical Examination Temp Pulse Resp BP Pulse Ox 97.5 F 60 16 94/55 L 98 08/20/23 08:00 08/20/23 08:00 08/20/23 08:00 08/20/23 08:00 08/20/23 08:00 General: Alert, In no apparent distress HEENT: Atraumatic, PERRLA, Mucous membr. moist/pink, EOMI, Sclerae nonicteric Neck: Supple, 2+ carotid pulse no bruit, No LAD, Without JVD or thyroid abnormality Respiratory: Normal air movement, Crackles/rales Cardiovascular: Regular rate/rhythm, Normal S1 S2, Edema Gastrointestinal: Normal bowel sounds, No tenderness Musculoskeletal: No tenderness Integumentary: No rashes Neurological: Normal gait, Normal speech, Normal tone, Normal affect Lymphatics: No axilla or inguinal lymphadenopathy - Problems (1) Acute on chronic diastolic CHF (congestive heart failure) Current Visit: No Status: Chronic Plan: Patient is in acute exacerbation, NYHA 3, stage C. increase Lasix to 20 mg IV q 8 hours (hold if SBP is less than 80 mmHg) continue to monitor input and output. monitor and correct electrolytes. (2) Atrial fibrillation Current Visit: No Status: Chronic Plan: patient is not a candidate for Eliquis due to falls and complaince issues, will discuss again at time of discharge, as he has been only on ASA, might benefit from watchman procedure if can take NOAC for short period and shows compliance with clinic visit. Continue Lovenox for now (3) HTN (hypertension) Current Visit: No Status: Chronic Plan: Medications on hold due to soft BP.
--- NOTE | 2023-08-20 12:44 | PN ---
Date of Progress Note: 08/20/2023 Subjective: The patient was seen this morning for followup. No new complaints or problems reported by him except his cough. He was sitting in chair, denies any other new complaints. Objective: Vital signs: Reviewed. HEENT: Unremarkable. Lungs: Clear to auscultation. Heart: Sounds normal. Abdomen: Soft. Bowel sounds normal. No guarding, rigidity, tenderness, distention. Extremities: Trace leg edema, unchanged from yesterday. Laboratory Data: White count 3.2, hemoglobin 11.1, platelets 225. Sodium 137, potassium 5.4, chlori de 110, bicarb 24, BUN 40, creatinine 2.13 glucose 217. ProBNP 6027. First troponin yesterday was 1 68.1. Second troponin was 164.6. Impression: 1.Acute exacerbation of chronic obstructive pulmonary disease. 2.Chronic kidney disease, stage 3B. 3.Coronary artery disease. 4.Hyperkalemia. 5.Anemia due to chronic kidney disease. Plan: We will go ahead and continue current steroid, antibiotic, oxygen, nebulizer treatment, give 1 dose of Kayexalate 45 g p.o. x1 dose today for hyperkalemia. We will repeat blood work tomorrow and possible discharge to go home tomorrow depending on his condition. The patient's elevated cardiac enzyme is likely due to stress-induced ischemia and not myocardial inf arction. ANNA/MODL Voice ID: [id number] Report ID: [id number]
[2023-08-20] MEDS ORDERED: ALBUTEROL 2.5 MG/3 ML NEB SOL NEB PRN (13:50)
[2023-08-20] MEDS ORDERED: IPRATROPIUM BROM 0.5MG/2.5ML NEB PRN (13:51)
[2023-08-20] MEDS ORDERED: FAMOTIDINE 20 MG/2 ML VIAL IV SCH (21:00)
[2023-08-20] MEDS: FAMOTIDINE 20 MG TAB PO SCH (21:08)
[2023-08-21 06:25] LABS: Anion Gap 9.4 mEq/L (5.0-15.0); Magnesium 2.4 mg/dL (1.6-2.4); Potassium 4.4 mEq/L (3.5-5.1)
[2023-08-21] MEDS: BENZONATATE 100 MG CAP PO PRN (06:48)
[2023-08-21] MEDS ORDERED: MORPHINE 4 MG/ML SYR IV PRN (08:46)
[2023-08-21 09:14] VITALS: O2SAT 96
[2023-08-21 11:54] VITALS: BP 118/69; TEMP 97.4
--- NOTE | 2023-08-21 12:12 | DS ---
Date of Discharge: 08/21/2023 Disposition: Discharged to go home. Physical Examination: HEENT: Unremarkable. Lungs: Clear to auscultation. Heart: Sounds normal. Abdomen: Soft. Bowel sounds normal. No guarding, rigidity, tenderness, distention. Extremities: No leg edema. Laboratory Data: Upon admission, sodium 140, potassium 4.2, chloride 109, bicarb 25, BUN 30, creatinine 1.80, glucose 109. Liver function tests unremarkable. Initial troponin 168.1. Second troponin 164.6. Initial proBNP 5393, second BNP was 6027. Yesterday's chemistry shows sodium 137, potassium 5.4, chloride 110, bicarb 24, BUN 40, creatinine 2.13, glucose 217. This morning, sodium 141, potassium 4.4, chloride 109, bicarb 27, BUN 52, creatinine 2.06, glucose 210, magnesium 2.4. Discharge Medications And Instructions: Continue all prior home medications, except following changes: 1. Stop carvedilol, Entresto, and potassium chloride. 2. Make sure not to take Eliquis as it was stopped recently. 3. Continue to take aspirin 81 mg by mouth daily. 4. Follow up at my office this week on , which is 08/24/2023, with all of your medication bottles. 5. Follow up with electronic intelligence officer, Dr. Pena/Dr. Beasley, next week. Hospital Course: This is a 72-year-old male patient, who came into emergency room with complaints of cough and shortness of breath. Please see dictated H and P for more information. After patient was evaluated in the emergency room, he was admitted to the hospital with acute exacerbation of COPD and chronic systolic heart failure problem. The patient was started on IV antibiotic, IV steroids, IV Lasix. Cardiology consultation was requested from Dr. Beasley. The patient did not require any further cardiac intervention. He was admitted to our hospital beginning of this month, and at the time of discharge, he was asked to come see me and electronic intelligence officer for followup visit, and unfortunately, he never kept his appointment to see either one of us and today, I did discuss with the patient regarding importance of followup as suggested. His blood pressure was on the lower side of normal range, so we have decided to discontinue some of his medications now, and we will see how he responds to that. I am concerned about his compliance to medications as well, and I have personally given him all these discharge instructions today, including importance of followup with me as well as electronic intelligence officer as well as importance of stopping all these medications as listed, and to bring all his medication bottles to the office. Eventually, plan is for electronic intelligence officer to consider Watchman's procedure. Final Diagnoses: 1. Chronic obstructive pulmonary disease, with acute exacerbation. 2. Chronic systolic heart failure, with acute exacerbation. 3. Chronic kidney disease, stage 3b. 4. Anemia due to chronic kidney disease. 5. Hyperkalemia. 6. Hypothyroidism. 7. Type 2 diabetes mellitus. 8. Hypertension. 9. Hyperlipidemia. 10. Coronary artery disease. 11. Paroxysmal atrial fibrillation. 12. Nonalcoholic fatty liver disease. 13. Benign prostatic hypertrophy. 14. Osteoarthritis, multiple sites. 15. Chronic constipation. Total time spent, 40 minutes. ANNA/ARMANDO Voice ID: [id number] Report ID: [id number] CAMACHO
[2023-08-21] MEDS ORDERED: FUROSEMIDE 20 MG/ 2ML VIAL IV SCH (15:00)
--- NOTE | 2023-08-22 14:24 | EKG ---
Test Date: 2023-08-19 Test Time: 08:52:40 Ratings Analyst: STEVEN MEASUREMENT RESULTS: Intervals: Rate: 78 MT: QRSD: 160 QT: 434 QTc: 494 Newcomb: P: MT: QRS: -86 T: 45 INTERPRETIVE STATEMENTS: Atrial fibrillation Left axis deviation Right bundle branch block Inferior infarct, age undetermined Anterolateral infarct, age undetermined Abnormal ECG Compared to ECG 07/28/2023 15:05:03 No significant changes Electronically Signed On 08-22-23 14:14:48 CDT by Orville Pena
== END 2023-08-21 12:58 | disposition home or self-care (01) | DRG 291 ==
LOC: ER 08:31 → ERHOLD 11:49 → 2ND 12:44
PROVIDERS: ADMIT Internal Medicine; ATTEND Internal Medicine
DX: I13.0 Hypertensive heart and chronic kidney disease with heart failure and stage 1 through stage 4 chronic kidney disease, or unspecified chronic kidney disease (principal); I50.23 Acute on chronic systolic (congestive) heart failure; J44.1 Chronic obstructive pulmonary disease with (acute) exacerbation; I48.19 Other persistent atrial fibrillation; N18.32 Chronic kidney disease, stage 3b; E11.22 Type 2 diabetes mellitus with diabetic chronic kidney disease; D63.1 Anemia in chronic kidney disease; E78.5 Hyperlipidemia, unspecified; E03.9 Hypothyroidism, unspecified; N40.0 Benign prostatic hyperplasia without lower urinary tract symptoms; I08.1 Rheumatic disorders of both mitral and tricuspid valves; E87.5 Hyperkalemia; K59.09 Other constipation; K76.0 Fatty (change of) liver, not elsewhere classified; M19.09 Primary osteoarthritis, other specified site; I25.2 Old myocardial infarction; I25.10 Atherosclerotic heart disease of native coronary artery without angina pectoris; Z79.82 Long term (current) use of aspirin; Z11.52 Encounter for screening for COVID-19; Z79.01 Long term (current) use of anticoagulants; Z79.02 Long term (current) use of antithrombotics/antiplatelets; Z86.73 Personal history of transient ischemic attack (TIA), and cerebral infarction without residual deficits; Z96.642 Presence of left artificial hip joint; Z79.890 Hormone replacement therapy; Z79.899 Other long term (current) drug therapy; Z91.048 Other nonmedicinal substance allergy status; Z91.199 Patient's noncompliance with other medical treatment and regimen due to unspecified reason
CPT/HCPCS: 36415; 71045; 71250; 74176; 80048; 80076; 83605; 83735; 83880; 84484; 85025; 85610; 87040; 87804; 87811; 93005; 93970; 96361; 96365; 96375; 99285; J0696; J1650; J1940; J2919; J2920; J7030; J7040; J7614; J7644

== ENCOUNTER 2023-09-18 00:43 | Emergency (ER) | payer OTHER ==
--- OUTSIDE RECORDS SUMMARY | 2023-09-18 00:47 | XMS REPORT | Clinical Summary ---
Author Name Unknown Organization [facility] Address [address] [place] [address] Care Team Providers Care Skid Worker Name Role Phone Ray Veliz MD Unavailable [phone] Dru Smith MD Primary Care Provider [phone] Allergies Active Allergy Reactions Criticality Noted Date [...] & Plan: Patient was seen by inpatient rehabilitation counsellor in September 2020 for atrial fibrillation with [...] has established a follow-up with his local rehabilitation counsellor in March for further management. Clostridioides difficile [...] Vaccine 11/26/2023 Medical Devices Implanted Type Area Seamer Elastic Band Device Identifier Shelf Expiration Date Model / Serial / Lot Metalware Metalware Right: Arm Description:pt sts he has a metal ryan in r arm Stent Stent Heart Advance Directives Documents on File Type Date Recorded Patient Decorator Inspector Expl anation Advance Directives: Medical Power of Oval Or Circular Glass Cutter 11/02/2020 Medical Power of Att orney * Full Code (Latest Code Status on File) Date Activated Date Inactivated Comments 10/07/2020 12:02 PM 11/14/2020 4:41 PM * Full Code Date Activated Date Inactivated Comments 09/17/2020 12:45 PM 09/23/2020 7:59 PM Care Teams Skid Worker Relationship Specialty Start Date End Date Ray Veliz MD [address] [place] [phone] m PCP - External Referring Internal Medicine 09/03/20 Dru Smith MD [address] [place] [address] [email or web address] PCP - General Lymphoma and Myeloma 09/16/20
[2023-09-18 03:18] LABS: Absolute Eosinophils 0.2 K/uL (0-0.5); Absolute Lymphocytes (CBC) 1.1 K/uL (0.7-4.9); Absolute Monocytes 0.9 K/uL (0.1-1.3); Absolute Neutrophil 4.2 K/uL (1.8-8.0); Basophils % 0.6 % (0-1.3); Eosinophils % 2.7 % (0-4.4); Hematocrit 33.1 % (39.6-49.0); Hemoglobin 10.9 g/dL (13.6-17.9); Lymphocytes % 17.3 % (15.3-44.8); MCH 28.4 pg (27.0-35.0); MCHC 32.9 g/dL (32.0-36.0); MCV 86.4 fL (80-100); MPV 7.9 fL (7.6-11.3); Monocytes % 14.3 % (3.3-12.3); Neutrophils % 65.1 % (41.7-73.7); Nucleated Red Blood Cells % 0.1 % (0-0); Platelets 188 thou/uL (152-406); RBC Red Blood Cell Count 3.83 M/uL (4.33-5.43); Red Cell Distribution Width 15.5 % (12.1-15.2)
[2023-09-18 03:33] LABS: Anion Gap 5.8 mEq/L (5.0-15.0)
[2023-09-18 03:34] LABS: Potassium 3.8 mEq/L (3.5-5.1)
--- NOTE | 2023-09-18 09:00 | ER ---
Nurse's Notes [facility] Name: Valerio Berg Age: 72 yrs Sex: Male : 1950 Arrival Date: 09/18/2023 Time: 00:43 Bed 8 Private MD: Diagnosis: Left Hip Fracture Presentation: 09/17 00:47 Chief complaint: Patient states: mechanical fall. pain to left hip. denies LOC. lg3 Coronavirus screen: Client denies travel out of the [place] in the last 14 days. At this time, the client does not indicate any symptoms associated with coronavirus-19. Ebola Screen: No symptoms or risks identified at this time. Initial Sepsis Screen: Does the patient meet any 2 criteria? No. Patient's initial sepsis screen is negative. Does the patient have a suspected source of infection? No. Patient's initial sepsis screen is negative. Risk Assessment: Do you want to hurt yourself or someone else? Patient reports no desire to harm self or others. Onset of symptoms was September 18, 2023. 00:47 Method Of Arrival: EMS: [facility] 3 00:47 Acuity: ADRIÁN 3 lg3 Triage Assessment: 00:50 General: Appears in no apparent distress. uncomfortable, Behavior is calm, cooperative. lg3 Pain: Complains of pain in right hip Pain does not radiate. EENT: No deficits noted. No signs and/or symptoms were reported regarding the EENT system. Neuro: No deficits noted. Payan Agitation-Sedation Scale (RASS): 0 - Alert and Calm Level of Consciousness is awake, alert, obeys commands, Oriented to person, place, time, situation. Cardiovascular: No deficits noted. Denies chest pain, shortness of breath, Capillary refill < 3 seconds Clubbing of nail beds is absent JVD is absent Patient's skin is warm and dry. Respiratory: No deficits noted. Airway is patent Respiratory effort is even, unlabored, Respiratory pattern is regular, symmetrical. GI: No deficits noted. No signs and/or symptoms were reported involving the gastrointestinal system. : No deficits noted. No signs and/or symptoms were reported regarding the genitourinary system. Derm: No deficits noted. No signs and/or symptoms reported regarding the dermatologic system. Skin is intact, is healthy with good turgor, Skin is dry, Skin is normal, Skin temperature is warm. Musculoskeletal: Circulation, motion, and sensation intact. Reports pain in right hip. Historical: - Allergies: 00:50 Betadine; lg3 00:50 Povidone-Iodine; lg3 - Home Meds: 00:50 furosemide 80 mg oral tablet 2 times per day [Active]; atorvastatin 40 mg oral tablet lg3 every day at bedtime [Active]; valacyclovir 500 mg Oral tablet 1 tab daily [Active]; Tradjenta 5 mg oral tablet every morning [Active]; levothyroxine 25 mcg tablet 1 tab daily [Active]; montelukast 10 mg oral tablet 1 tab daily [Active]; ropinirole 1 mg oral tablet 2 times per day [Active]; aspirin 81 mg Oral capsule daily [Active]; - PMHx: 00:50 Borderline Diabetes; COPD; CVA; Hypothyroidism; Myocardial infarction; lg3 - PSHx: 00:50 Unable to Obtain; lg3 - Immunization history:: Adult Immunizations up to date. - Infectious Disease History:: Denies. - Social history:: Smoking status: Patient denies any tobacco usage or history of. Patient/guardian denies using alcohol, street drugs. Screenin:55 [facility] ED Fall Risk Assessment (Adult) History of falling in the last 3 months, lg3 including since admission Yes- fall prone (multiple falls) (3 pts) Confusion or Disorientation No (0 pts) Intoxicated or Sedated No (0 pts) Impaired Gait No (0 pts) Mobility Assist Device Used No (0 pt) Altered Elimination No (0 pt) Score/Fall Risk Level 3 or more points = High Risk Oriented to surroundings, Maintained a safe environment, Educated pt \\T\\ family on fall prevention, incl call for assistance when getting out of bed, Assessed \\T\\ reinforced patient's understanding of fall precautions, Provided non-skid footwear, Implemented a Fall Risk Plan of Care, Apply high fall risk patient identification: yellow non skid footwear/ fall signage. Abuse screen: Denies threats or abuse. Denies injuries from another. Nutritional screening: No deficits noted. Tuberculosis screening: No symptoms or risk factors identified. Assessment: 00:55 General: see triage assessment. lg3 03:05 Reassessment: Patient appears in no apparent distress at this time. No changes from lg3 previously documented assessment. Patient and/or family updated on plan of care and expected duration. Pain level reassessed. Patient is alert, oriented x 3, equal unlabored respirations, skin warm/dry/pink. 05:11 General: attempted to call report. nurse states " i just got notified of this patient. lg3 i will have to call you back". call back number provided. . 05:47 Reassessment: Patient appears in no apparent distress at this time. No changes from lg3 previously documented assessment. Patient and/or family updated on plan of care and expected duration. Pain level reassessed. Patient is alert, oriented x 3, equal unlabored respirations, skin warm/dry/pink. Vital Signs: 00:47 BP 133 / 72; Pulse 63; Resp 17 S; Temp 98.1(O); Pulse Ox 97% on R/A; Weight 93.44 kg lg3 (R); Height 5 ft. 10 in. (R); Pain 10/10; 03:05 BP 121 / 84; Pulse 65; Resp 16 S; Pulse Ox 97% on R/A; lg3 05:47 BP 114 / 76; Pulse 69; Resp 14 S; Temp 97.6(O); Pulse Ox 98% on R/A; lg3 00:47 Body Mass Index 29.56 (93.44 kg, 177.8 cm) lg3 00:47 Pain Scale: Adult lg3 ED Course: 00:47 Patient arrived in ED. lg3 00:47 Qing Miranda RN is Primary Nurse. lg3 00:50 Triage completed. lg3 00:50 Arm band placed on right wrist. lg3 00:51 Marcelino Mukherjee MD is Attending Physician. ec2 00:55 Patient has correct armband on for positive identification. Placed in gown. Bed in low lg3 position. Call light in reach. Side rails up X 1. Client placed on continuous cardiac and pulse oximetry monitoring. NIBP monitoring applied. environmental monitoring specialist on. Door closed. Noise minimized. Warm blanket given. Pillow given. 00:55 Maintain EMS IV. Dressing intact. Good blood return noted. Site clean \\T\\ dry. Gauge \\T\\ lg 3 site: 18LAC. 01:47 Head Brain Wo Cont In Process Unspecified. EDMS 01:47 Pelvis Wo Cont In Process Unspecified. EDMS 01:54 Pelvis In Process Unspecified. EDMS 01:54 Chest Single View In Process Unspecified. EDMS 05:47 No provider procedures requiring assistance completed. Patient transferred, IV remains lg3 in place. Administered Medications: No medications were administered Medication: 05:48 VIS not applicable for this client. lg3 Outcome: 04:18 ER care complete, transfer ordered by . ec2 05:48 Transferred by ground EMS to [facility], Transfer form lg3 completed. 05:48 Condition: stable 05:48 Instructed on the need for transfer, Demonstrated understanding of instructions, 05:48 Patient left the ED. lg3 Signatures: Dispatcher [employer] Qing Durham RN RN lg3 Marcelino Mukherjee MD MD ec2
--- NOTE | 2023-09-18 09:00 | EDPHYS ---
Physician Documentation [facility] Name: Valerio Berg Age: 72 yrs Sex: Male : 1950 Arrival Date: 09/18/2023 Time: 00:43 Bed 8 Private MD: ED Physician Marcelino Mukherjee HPI: 09/17 01:07 This 72 yrs old Black Male presents to ER via EMS with complaints of Fall Injury. ec2 01:07 Patient arrives today for evaluation of her ground-level fall. Reports that he was ec2 walking subsequently fell and injured his left hip. Patient planing of pain at the area. Patient reports no prodromal symptoms. No blood thinners.. Historical: - Allergies: 00:50 Betadine; lg3 00:50 Povidone-Iodine; lg3 - Home Meds: 00:50 furosemide 80 mg oral tablet 2 times per day [Active]; atorvastatin 40 mg oral tablet lg3 every day at bedtime [Active]; valacyclovir 500 mg Oral tablet 1 tab daily [Active]; Tradjenta 5 mg oral tablet every morning [Active]; levothyroxine 25 mcg tablet 1 tab daily [Active]; montelukast 10 mg oral tablet 1 tab daily [Active]; ropinirole 1 mg oral tablet 2 times per day [Active]; aspirin 81 mg Oral capsule daily [Active]; - PMHx: 00:50 Borderline Diabetes; COPD; CVA; Hypothyroidism; Myocardial infarction; lg3 - PSHx: 00:50 Unable to Obtain; lg3 - Immunization history:: Adult Immunizations up to date. - Infectious Disease History:: Denies. - Social history:: Smoking status: Patient denies any tobacco usage or history of. Patient/guardian denies using alcohol, street drugs. ROS: 01:07 Constitutional: as per hpi ec2 Exam: 01:07 Constitutional: GEN: No acute distress HEENT: -Head: no deformities -Eyes: EOMI CV: ec2 regular rate LUNGS: no respiratory distress ABD: non-tender SKIN: no wounds appreciated MSK: No C/T/L spine deformities RUE w/o bony deformity LUE w/o bony deformity RLE w/o bony deformity LLE TTP to the left hip, intact distal neurovascular status. NEURO: moves all extremities equally, GCS 15 (E4, V5, M6) Vital Signs: 00:47 BP 133 / 72; Pulse 63; Resp 17 S; Temp 98.1(O); Pulse Ox 97% on R/A; Weight 93.44 kg lg3 (R); Height 5 ft. 10 in. (R); Pain 10/10; 03:05 BP 121 / 84; Pulse 65; Resp 16 S; Pulse Ox 97% on R/A; lg3 05:47 BP 114 / 76; Pulse 69; Resp 14 S; Temp 97.6(O); Pulse Ox 98% on R/A; lg3 00:47 Body Mass Index 29.56 (93.44 kg, 177.8 cm) lg3 00:47 Pain Scale: Adult lg3 MDM: 00:55 Patient medically screened. ec2 01:07 Data reviewed: vital signs. ED course: Patient arrives today for evaluation after ec2 ground-level fall. Examination remarkable for well-appearing nontoxic vigorous otherwise in no acute distress with left hip TTP. Given his age, will obtain CT scan of the head and C-spine, also obtain imaging of the pelvis. Differential diagnose include intracranial brain bleed, C-spine fracture, hip fracture. . 02:01 ED course: EKG independently reviewed and interpreted by me, shows atrial fibrillation, ec2 right bundle branch block noted, no acute ST segment elevation noted.. 02:28 ED course: Chest x-ray independently reviewed and interpreted by me, shows no acute ec2 traumatic process. Pelvis x-ray shows no bony fracture. CT scan of the head shows no acute intracranial normality. . 04:01 ED course: Radiology questions possible lucency but may be a subacute avulsion injury, ec2 will attempt to ambulate individual and reassess. . 04:08 ED course: Patient unable to ambulate, will transfer to Ortho capable facility. Patient ec2 updated on plan of care and agreeable.. 04:59 ED course: I discussed case with [facility] physician who agreed symptoms patient ec2 for transfer. I discussed case with orthopedic surgery who will consult. Likely nonoperative however patient would best suited that I orthopedic capable facility. . 09/17 01:03 Order name: Type And Screen ec2 09/17 02:03 Order name: Type and Screen; Complete Time: 04:57 EDMS 09/17 02:47 Order name: Basic Metabolic Panel; Complete Time: 04:18 EDMS 09/17 02:47 Order name: CBC with Automated Diff; Complete Time: 04:18 EDMS 09/17 01:27 Order name: Head Brain Wo Cont EDMS 09/17 01:27 Order name: Pelvis Wo Cont EDMS 09/17 01:27 Order name: Pelvis EDMS 09/17 01:51 Order name: Chest Single View EDMS 09/17 01:03 Order name: EKG; Complete Time: 08:53 ec2 09/17 01:03 Order name: Cardiac monitoring; Complete Time: 02:01 ec2 09/17 01:03 Order name: EKG - Nurse/Tech; Complete Time: 02:01 ec2 09/17 01:03 Order name: IV Saline Lock; Complete Time: 02:01 ec2 09/17 01:03 Order name: Labs collected and sent; Complete Time: 02:01 ec2 09/17 01:03 Order name: O2 Per Protocol; Complete Time: 02:01 ec2 09/17 01:03 Order name: O2 Sat Monitoring; Complete Time: 02:01 ec2 Administered Medications: No medications were administered Disposition Summary: 09/18/23 04:18 Transfer Ordered Notes: Transfer Location: Other Acute Care Facility ec2 Reason: Higher level of care ec2 Condition: Stable ec2 Problem: new ec2 Symptoms: are unchanged ec2 Accepting Physician: transferring doc(09/18/23 05:48) lg3 Diagnosis - Left Hip Fracture ec2 Forms: - Medication Reconciliation Form ec2 - SBAR form ec2 Signatures: Dispatcher [employer] Qing Durham RN RN lg3 Marcelino Mukherjee MD MD ec2 Corrections: (The following items were deleted from the chart) 05:48 04:18 transferring doc ec2 lg3
--- NOTE | 2023-09-18 13:03 | EKG ---
Test Date: 2023-09-18 Test Time: 01:56:14 Customs Opener Verifier Packer: MARIELLE MEASUREMENT RESULTS: Intervals: Rate: 62 NH: QRSD: 178 QT: 496 QTc: 503 [place]: P: NH: QRS: -81 T: 40 INTERPRETIVE STATEMENTS: Atrial fibrillation with premature ventricular or aberrantly conducted complexes Left axis deviation Right bundle branch block Anteroseptal infarct, age undetermined Abnormal ECG Compared to ECG 08/19/2023 08:52:40 Ventricular premature complex(es) now present Myocardial infarct finding still present Electronically Signed On 09-18-23 13:01:33 CDT by Orville Pena
[2023-09-18 17:28] VITALS: BP 114/76; TEMP 97.6; O2SAT 98
--- NOTE | 2023-09-18 22:48 | RAD REPORT ---
EXAM DESCRIPTION: RAD - Pelvis - 09/18/2023 1:53 am CLINICAL HISTORY: FALL TECHNIQUE: Single frontal view of the bony pelvis COMPARISON: None available for comparison FINDINGS: Right femoral head and neck are intact. Pubic rami are intact. Sacrum within normal limits. There is a left hip prosthesis in anatomic orientation. There are well-corticated bony fragments adjacent to the left greater trochanter and medial to the pr osthesis likely chronic and which may be related to old trauma or surgery. Atherosclerotic calcifications noted. IMPRESSION: 1. No acute pelvic or hip fracture. 2. Left hip prosthesis in anatomic orientation. 3. Well-corticated bony fragments adjacent to the left greater trochanter and medial to the prosthe sis likely chronic and which may be related to old trauma or surgery. Electronically signed by: Raul Cardoso MD 09/18/2023 02:10 AM CDT RP Due to temporary technical issues with the PACS/Fluency reporting system, reports are being signed by the in house radiologists without review as a courtesy to insure prompt reporting. The interpreting radiologist is fully responsible for the content of the report.
--- NOTE | 2023-09-18 22:51 | RAD REPORT ---
EXAM DESCRIPTION: RAD - Chest Single View - 09/18/2023 1:53 am CLINICAL HISTORY: FALL TECHNIQUE: AP chest COMPARISON: None available for comparison FINDINGS: CHEST: Heart: The cardiomediastinal silhouette is within normal limits. Status post median sternotomy. Lungs: No focal consolidation. Elevation of the left hemidiaphragm with left basilar platelike atelec tasis Mediastinum: Unremarkable Pleura: No appreciable effusion. No pneumothorax. Bones: Intact IMPRESSION: Elevation of the left hemidiaphragm with left basilar platelike atelectasis. No other ra diographic evidence of acute cardiopulmonary disease. Electronically signed by: Raul Cardoso MD 09/18/2023 02:08 AM CDT RP Due to temporary technical issues with the PACS/Fluency reporting system, reports are being signed by the in house radiologists without review as a courtesy to insure prompt reporting. The interpreting radiologist is fully responsible for the content of the report.
--- NOTE | 2023-09-18 22:54 | RAD REPORT ---
EXAM DESCRIPTION: CT - Head Brain Wo Cont - 09/18/2023 7:19 am CLINICAL HISTORY: 72 years Male FALL COMPARISON: CT head without contrast dated 04/18/2023 TECHNIQUE: Contiguous axial images of the brain were obtained without the administration of intraven ous contrast.This exam was performed according to our departmental dose-optimization program which in cludes use of Automated Exposure Control, adjustment of the mA and/or kV according to patient size an d/or use of iterative reconstruction technique. DLP: 904 mGy*cm FINDINGS: Brain: No acute intracranial hemorrhage. No extra-axial collection. No mass effect or jesús iation. Mild prominence of the sulci and cisterns. Confluent periventricular and subcortical white matter hypodensity is noted. Vascular calcifications. Ventricles: Allowing for underlying cerebral volume loss, ventricular size appears within normal limi ts.. Globes and orbits: No acute abnormality. Prior cataract surgery. Bones: No acute osseous finding Paranasal sinuses: Paranasal sinuses are clear. Mastoid air cells: Well pneumatized. Soft tissues: Within normal limits IMPRESSION: No acute intracranial hemorrhage, hydrocephalus or herniation. Cerebral volume loss and chronic small vessel ischemic changes. Consider MRI brain for further evalua tion. Electronically signed by: Bo Salguero DO 09/18/2023 02:12 AM CDT RP 9 Due to temporary technical issues with the PACS/Fluency reporting system, reports are being signed by the in house radiologists without review as a courtesy to insure prompt reporting. The interpreting radiologist is fully responsible for the content of the report.
--- NOTE | 2023-09-18 22:55 | RAD REPORT ---
EXAM DESCRIPTION: CT - Pelvis Wo Cont - 09/18/2023 7:19 am CLINICAL HISTORY: FALL TECHNIQUE: Single frontal view of the bony pelvis COMPARISON: None available for comparison FINDINGS: Right femoral head and neck are intact. Pubic rami are intact. Sacrum within normal limits. There is a left hip prosthesis in anatomic orientation. There are well-corticated bony fragments adjacent to the left greater trochanter and medial to the pr osthesis likely chronic and which may be related to old trauma or surgery. Atherosclerotic calcifications noted. IMPRESSION: 1. No acute pelvic or hip fracture. 2. Left hip prosthesis in anatomic orientation. 3. Well-corticated bony fragments adjacent to the left greater trochanter and medial to the prosthe sis likely chronic and which may be related to old trauma or surgery. Electronically signed by: Raul Cardoso MD 09/18/2023 02:10 AM CDT RP Due to temporary technical issues with the PACS/Fluency reporting system, reports are being signed by the in house radiologists without review as a courtesy to insure prompt reporting. The interpreting radiologist is fully responsible for the content of the report.
== END 2023-09-18 05:48 ==
LOC: ER 00:43
DX: S72.002A Fracture of unspecified part of neck of left femur, initial encounter for closed fracture (principal); W18.30XA Fall on same level, unspecified, initial encounter; Z96.642 Presence of left artificial hip joint
CPT/HCPCS: 36415; 70450; 71045; 72170; 72192; 80048; 85025; 86850; 86900; 86901; 93005; 99285

== ENCOUNTER 2023-12-23 16:46 | Inpatient (IN) | payer OTHER ==
--- OUTSIDE RECORDS SUMMARY | 2023-12-23 16:48 | XMS REPORT | Clinical Summary ---
Author Name Unknown Organization [facility] Address [address] [place] [address] Care Team Providers Care B Operator Name Role Phone Ray Veliz MD Unavailable [phone] Dru Smith MD Primary Care Provider [phone] Allergies Active Allergy Reactions Criticality Noted Date [...] & Plan: Patient was seen by inpatient glass cut off supervisor in September 2020 for atrial fibrillation with [...] established a follow-up with his local glass cut off supervisor in March for further management. 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 Expl anation Advance Directives: Medical Power of Meter Technician 11/02/2020 Medical Power of Att orney * Full Code (Latest Code Status on File) Date Activated Date Inactivated Comments 10/07/2020 12:02 PM 11/14/2020 4:41 PM * Full Code Date Activated Date Inactivated Comments 09/17/2020 12:45 PM 09/23/2020 7:59 PM Care Teams B Operator Relationship Specialty Start Date End Date Ray Veliz MD [address] [place] [address] [phone] [email or web address] PCP - External Referring Internal Medicine 09/03/20 Dru Smith MD [address] [place] [address] [email or web address] PCP - General Lymphoma and Myeloma 09/16/20
[2023-12-23] MEDS ORDERED: IPRATROPIUM BROM 0.5MG/2.5ML ONE (17:39)
[2023-12-23] MEDS ORDERED: CEFAZOLIN SODIUM 2 GM/VIAL ONE (17:39)
[2023-12-23] MEDS ORDERED: ALBUTEROL 2.5 MG/3 ML NEB SOL ONE (17:39)
[2023-12-23] MEDS ORDERED: FUROSEMIDE 40 MG/4 ML VIAL ONE (17:39)
[2023-12-23] MEDS ORDERED: NA CHLORIDE 0.9% 100 ML ONE (17:39)
[2023-12-23 18:03] LABS: PT Prothrombin Time 13.7 SECONDS (9.4-12.5); PTT, Activated Partial Thromb 27.6 SECONDS (24.3-36.9); Protime INR 1.23
[2023-12-23 18:14] LABS: Absolute Basophils 0.1 K/uL (0-0.5); Absolute Eosinophils 0.1 K/uL (0-0.5); Absolute Lymphocytes (CBC) 0.7 K/uL (0.7-4.9); Absolute Monocytes 0.7 K/uL (0.1-1.3); Absolute Neutrophil 7.3 K/uL (1.8-8.0); Basophils % 0.7 % (0-1.3); Eosinophils % 1.3 % (0-4.4); Hematocrit 35.4 % (39.6-49.0); Hemoglobin 11.3 g/dL (13.6-17.9); MCH 26.8 pg (27.0-35.0); MCV 83.6 fL (80-100); MPV 8.6 fL (7.6-11.3); Monocytes % 7.6 % (3.3-12.3); Neutrophils % 82.4 % (41.7-73.7); Nucleated Red Blood Cells % 0.1 % (0-0); Platelets 109 thou/uL (152-406); RBC Red Blood Cell Count 4.23 M/uL (4.33-5.43); Red Cell Distribution Width 17.2 % (12.1-15.2)
[2023-12-23 18:15] LABS: Albumin 3.6 g/dL (3.4-5.0); Albumin/Globulin Ratio 0.8 (1.1-1.8); Anion Gap 11.5 mEq/L (5.0-15.0); Bilirubin Direct 0.4 mg/dL (0-0.2); Bilirubin Indirect, Calculated 0.4 mg/dL (0.2-0.8); Bilirubin Total 0.8 mg/dL (0.2-1.0); Globulin 4.3 g/dL (2.3-3.5); Magnesium 2.3 mg/dL (1.6-2.4); Potassium 4.5 mEq/L (3.5-5.1); Protein, Total 7.9 g/dL (6.4-8.2)
[2023-12-23 18:25] LABS: Troponin High Sensitivity 301.3 pg/mL (<58.9)
--- NOTE | 2023-12-23 18:27 | RAD REPORT ---
EXAMINATION: ONE VIEW CHEST XR CLINICAL INDICATION: Male, 73 years old.DYSPNEA TECHNIQUE: 1 View, AP supine, X-ray of the chest was performed. [id number]. COMPARISON: No prior exam. FINDINGS: Lungs and pleura: Low lung volumes. There is likely some atelectasis however there is also possible o pacities in the medial lung bases. No effusion. Heart and mediastinum: Similar size and configuration. Sternotomy. Unremarkable mediastinal contours. Osseous structures: No acute abnormality. Tubes/lines: None Other: Colon anterior to the liver subjacent to the right hemidiaphragm. IMPRESSION: Low lung volumes with likely atelectasis. Pneumonia at the medial lung bases is difficult to exclude, however.
--- NOTE | 2023-12-23 18:46 | EDPHYS ---
Physician Documentation [facility] Name: Valerio Berg Age: 73 yrs Sex: Male : 1950 Arrival Date: 12/23/2023 Time: 16:46 Bed 14 Private MD: ED Physician Paul Hansen HPI: 12/22 18:54 This 73 yrs old Black Male presents to ER via Wheelchair with complaints of Breathing rt Difficulty, Chest Pain. 18:54 Patient presents to the ED with difficulty breathing, cough for several days, rt worsening. Reports bilateral lower extremity swelling as well as warmth of the left leg. Denies other acute complaints at this time, symptoms are severe in severity, no other aggravating or alleviating factors.. Historical: - Allergies: 17:19 Betadine; jl7 17:19 Povidone-Iodine; jl7 - PMHx: 17:19 Borderline Diabetes; COPD; CVA; Hypothyroidism; Myocardial infarction; Congestive heart jl7 failure; - Immunization history:: Adult Immunizations unknown. - Infectious Disease History:: Denies. - Social history:: Smoking status: unknown. - Family history:: not pertinent. ROS: 18:54 Constitutional: Negative for fever, chills, and weight loss, Abdomen/GI: Negative for rt abdominal pain, nausea, vomiting, diarrhea, and constipation, MS/Extremity: Negative for injury and deformity, Skin: Negative for injury, rash, and discoloration, Neuro: Negative for headache, weakness, numbness, tingling, and seizure, 18:54 Cardiovascular: Positive for chest pain, edema, 18:54 Respiratory: Positive for cough, shortness of breath, Exam: 18:54 Constitutional: This is a well developed, well nourished patient who is awake, alert, rt and in no acute distress. Head/Face: Normocephalic, atraumatic. Chest/axilla: Normal chest wall appearance and motion. Nontender with no deformity. No lesions are appreciated. Cardiovascular: Regular rate and rhythm with a normal S1 and S2. No gallops, murmurs, or rubs. Normal PMI, no JVD. No pulse deficits. Abdomen/GI: Soft, non-tender, with normal bowel sounds. No distension or tympany. No guarding or rebound. No evidence of tenderness throughout. Neuro: Awake and alert, GCS 15, oriented to person, place, time, and situation. Cranial nerves II-XII grossly intact. Motor strength 5/5 in all extremities. Sensory grossly intact. Cerebellar exam normal. Normal gait. 18:54 ECG was reviewed by the Attending Physician. 18:54 Respiratory: Bibasilar crackles, moderate respiratory distress, 18:54 Musculoskeletal/extremity: 4+ pitting bilateral lower extremity edema, warmth noted to the left lower extremity. Vital Signs: 16:55 BP 151 / 92; Pulse 90; Resp 34 S; Temp 101.2(O); Pulse Ox 87% on R/A; Weight 90.72 kg; jl7 Height 5 ft. 10 in. ; 18:36 BP 145 / 88; Pulse 88; Resp 33; Pulse Ox 94% 3 lpm ; rs5 19:05 BP 128 / 74; Pulse 74; Resp 20; Temp 98; Pulse Ox 96% on 3 lpm NC; kj2 16:55 Body Mass Index 28.70 (90.72 kg, 177.8 cm) jl7 MDM: 16:58 Patient medically screened. rt 18:54 Differential diagnosis: CHF, NSTEMI, sepsis, cellulitis. Data reviewed: vital signs, rt nurses notes, lab test result(s), EKG, radiologic studies. Consideration of Admission/Observation Patient was admitted/placed on observation. Management of patient was discussed with the following: Discussed with cardiology and PCP who agrees to admit. Independent interpretation of the following test(s) in the Emergency Department CT Scan: My interpretation is Low suspicion for pulmonary bolus, CT angiogram not decayed. Care significantly affected by the following chronic conditions: Congestive Heart Failure. Counseling: I had a detailed discussion with the patient and/or guardian regarding the historical points, exam findings, and any diagnostic results supporting the discharge/admit diagnosis, lab results, radiology results, the need for further work-up and treatment in the hospital. Response to treatment: the patient's symptoms have mildly improved after treatment. ED course: Patient is volume overloaded, I believe that any IV fluids will worsen the patient's respiratory status, therefore, will not order bolus. 12/22 17:06 Order name: Basic Metabolic Panel; Complete Time: 18:28 rt 12/22 17:06 Order name: CBC with Diff; Complete Time: 18:28 rt 12/22 17:06 Order name: LFT's; Complete Time: 18:28 rt 12/22 17:06 Order name: Magnesium; Complete Time: 18:28 rt 12/22 17:06 Order name: NT PRO-BNP; Complete Time: 18:28 rt 12/22 17:06 Order name: Troponin HS; Complete Time: 18:28 rt 12/22 17:07 Order name: Blood Culture Adult (2) rt 12/22 17:07 Order name: Lactate w/ 2H reflex if indic.; Complete Time: 18:28 rt 12/22 17:07 Order name: Protime (+inr); Complete Time: 18:13 rt 12/22 17:07 Order name: Ptt, Activated; Complete Time: 18:13 rt 12/22 17:06 Order name: XRAY Chest (1 view); Complete Time: 18:28 rt 12/22 17:06 Order name: EKG; Complete Time: 17:07 rt 12/22 18:50 Order name: CONS Physician Consult EDMS 12/22 17:06 Order name: Cardiac monitoring; Complete Time: 18:40 rt 12/22 17:06 Order name: EKG - Nurse/Tech; Complete Time: 18:40 rt 12/22 17:06 Order name: IV Saline Lock; Complete Time: 18:40 rt 12/22 17:06 Order name: Labs collected and sent; Complete Time: 18:40 rt 12/22 17:06 Order name: O2 Per Protocol; Complete Time: 18:40 rt 12/22 17:06 Order name: O2 Sat Monitoring; Complete Time: 18:40 rt 12/22 17:07 Order name: Accucheck; Complete Time: 17:35 rt 12/22 17:07 Order name: IV Saline Lock - Large Bore; Complete Time: 17:35 rt 12/22 17:07 Order name: Vital Signs; Complete Time: 17:35 rt EC:54 Rate is 84 beats/min. Rhythm is regular, Normal Sinus Rhythm with No ectopy. Left axis rt deviation noted. QRS interval is normal. QT interval is normal. No Q waves. Clinical impression: NSR w/ Non-specific ST/T Changes. Administered Medications: 17:35 Drug: Furosemide IVP 40 mg IVP once; give over 2 minutes Route: IVP; Site: right rs5 antecubital; 19:31 Follow up: Response: No adverse reaction kj2 17:35 Drug: DuoNeb Nebulize (3:1) (2.5 mg - 0.5 mg) 3 ml Nebulizer once Route: Nebulizer; rs5 19:31 Follow up: Response: No adverse reaction kj2 17:35 Drug: ceFAZolin IVPB 2 grams IVPB once over 30 mins; (mix in 100 mL NS) Route: IVPB; rs5 Infused Over: 30 mins; Site: right antecubital; 19:31 Drug: Lovenox Sub-Q 80 mg Sub-Q once Route: Sub-Q; Site: abdomen; kj2 19:31 Drug: Aspirin PO 81 mg PO once Route: PO; kj2 Disposition Summary: 12/23/23 18:45 Hospitalization Ordered Notes: Hospitalization Status: Inpatient Admission rt Provider: Ray Veliz rt Location: Telemetry/[facility] (Inpatient) rt Condition: Serious rt Problem: new rt Symptoms: have improved rt Bed/Room Type: Standard rt Room Assignment: 224(12/23/23 19:29) Diagnosis - CHF exacerbation rt - Cellulitis to left lower extremity rt - NSTEMI rt - Sepsis rt Forms: - Medication Reconciliation Form rt - SBAR form rt - Leadership Thank You Letter rt Signatures: Dispatcher [employer] Nicole Perez, RN RN Vinh Watson RN RN jl7 Evi Locke Ryan, MD MD rt Oskar Saeed RN RN rs5 Charito Rice RN RN kj2 Corrections: (The following items were deleted from the chart) 17:07 17:07 BLOOD CULTURE*+BA.LAB.BRZ ordered. EDMS EDMS 17:07 17:07 LACTATE+C.LAB.BRZ ordered. EDMS EDMS 17:07 17:07 PROTIME (+INR)+COAG.LAB.BRZ ordered. EDMS EDMS 17:07 17:07 PTT, ACTIVATED+COAG.LAB.BRZ ordered. EDMS EDMS 18:56 18:45 rt eb 19:29 18:56 210 eb cg
--- NOTE | 2023-12-23 18:46 | ER ---
Nurse's Notes [facility] Name: Valerio Berg Age: 73 yrs Sex: Male : 1950 Arrival Date: 12/23/2023 Time: 16:46 Bed 14 Private MD: Diagnosis: CHF exacerbation;Cellulitis to left lower extremity;NSTEMI;Sepsis Presentation: 12/22 16:55 Chief complaint: Patient states: Shortness of breath, cough, MARVIN lower extremity edema jl7 x "A long time". 16:55 Method Of Arrival: Wheelchair jl7 16:55 Coronavirus screen: At this time, the client does not indicate any symptoms associated jl7 with coronavirus-19. Ebola Screen: No symptoms or risks identified at this time. Initial Sepsis Screen: Does the patient meet any 2 criteria? No. Patient's initial sepsis screen is negative. Does the patient have a suspected source of infection? No. Patient's initial sepsis screen is negative. Risk Assessment: Do you want to hurt yourself or someone else? Patient reports no desire to harm self or others. Onset of symptoms is unknown. Care prior to arrival: None. 16:55 Acuity: ADRIÁN 2 jl7 Triage Assessment: 17:19 General: Appears distressed, uncomfortable, Behavior is cooperative, appropriate for jl7 age, anxious, restless. Pain: Complains of pain in right leg and left leg. Respiratory: Reports shortness of breath at rest cough that is productive, Onset: The symptoms/episode began/occurred at an unknown time. the patient has moderate shortness of breath. Historical: - Allergies: 17:19 Betadine; jl7 17:19 Povidone-Iodine; jl7 - PMHx: 17:19 Borderline Diabetes; COPD; CVA; Hypothyroidism; Myocardial infarction; Congestive heart jl7 failure; - Immunization history:: Adult Immunizations unknown. - Infectious Disease History:: Denies. - Social history:: Smoking status: unknown. - Family history:: not pertinent. Screenin:00 [facility] ED Fall Risk Assessment (Adult) History of falling in the last 3 months, rs5 including since admission No falls in past 3 months (0 pts) Confusion or Disorientation No (0 pts) Intoxicated or Sedated No (0 pts) Impaired Gait Yes (1 pt) Mobility Assist Device Used Yes (1 pt) Altered Elimination No (0 pt) Score/Fall Risk Level 0 - 2 = Low Risk Oriented to surroundings, Maintained a safe environment. Abuse screen: Denies threats or abuse. Nutritional screening: No deficits noted. Tuberculosis screening: No symptoms or risk factors identified. Assessment: 17:00 General: Appears uncomfortable, Behavior is cooperative. Pain: Complains of pain in rs5 chest Pain currently is 3 out of 10 on a pain scale. Quality of pain is described as aching. Neuro: Level of Consciousness is awake, alert, obeys commands, Oriented to person, place, time, situation. Cardiovascular: Patient's skin is warm and dry. Rhythm is. Respiratory: Airway is patent Respiratory effort is even, labored, Respiratory pattern is symmetrical, GI: Abdomen is round non-distended. : No signs and/or symptoms were reported regarding the genitourinary system. EENT: No signs and/or symptoms were reported regarding the EENT system. Derm: Skin is intact, Skin is pink, warm \\T\\ dry. Musculoskeletal: Range of motion: limited in left leg and right leg Swelling present in lower extremitites bilat. 18:01 Reassessment: Patient and/or family updated on plan of care and expected duration. Pain rs5 level reassessed. Patient is alert, oriented x 3, equal unlabored respirations, skin warm/dry/pink. 18:35 Reassessment: No changes from previously documented assessment. rs5 19:05 Reassessment: Patient appears in no apparent distress at this time. Patient and/or kj2 family updated on plan of care and expected duration. Pain level reassessed. Patient is alert, oriented x 3, equal unlabored respirations, skin warm/dry/pink. 20:02 Reassessment: report faxed and confirmed with Milka carlson [employer] [facility] [place] [place] at 2003. kj2 Vital Signs: 16:55 BP 151 / 92; Pulse 90; Resp 34 S; Temp 101.2(O); Pulse Ox 87% on R/A; Weight 90.72 kg; jl7 Height 5 ft. 10 in. ; 18:36 BP 145 / 88; Pulse 88; Resp 33; Pulse Ox 94% 3 lpm ; rs5 19:05 BP 128 / 74; Pulse 74; Resp 20; Temp 98; Pulse Ox 96% on 3 lpm NC; kj2 16:55 Body Mass Index 28.70 (90.72 kg, 177.8 cm) jl7 ED Course: 16:47 Patient arrived in ED. mg5 16:49 Paul Hansen MD is Attending Physician. rt 17:00 Patient has correct armband on for positive identification. Bed in low position. Call rs5 light in reach. Side rails up X2. 17:00 No provider procedures requiring assistance completed. rs5 17:10 Oskar Saeed, RN is Primary Nurse. rs5 17:19 Triage completed. jl7 17:19 Arm band placed on right wrist. jl7 17:20 First set of blood cultures drawn by me. tm3 17:40 Second set of blood cultures drawn by me. Initial lab(s) drawn, by me, sent to lab. tm3 Inserted saline lock: 22 gauge in right antecubital area, using aseptic technique. 18:11 XRAY Chest (1 view) In Process Unspecified. EDMS 18:44 Ray Veliz MD is Hospitalizing Provider. rt 19:00 Provided Education on: call light. Report received from APURVA guerra. kj2 19:25 Primary Nurse role handed off by Oskar Saeed RN jl7 19:54 Charito Rice, APURVA is Primary Nurse. kj2 20:47 Patient admitted, IV remains in place. kj2 Administered Medications: 17:35 Drug: Furosemide IVP 40 mg IVP once; give over 2 minutes Route: IVP; Site: right rs5 antecubital; 19:31 Follow up: Response: No adverse reaction kj2 17:35 Drug: DuoNeb Nebulize (3:1) (2.5 mg - 0.5 mg) 3 ml Nebulizer once Route: Nebulizer; rs5 19:31 Follow up: Response: No adverse reaction kj2 17:35 Drug: ceFAZolin IVPB 2 grams IVPB once over 30 mins; (mix in 100 mL NS) Route: IVPB; rs5 Infused Over: 30 mins; Site: right antecubital; 19:31 Drug: Lovenox Sub-Q 80 mg Sub-Q once Route: Sub-Q; Site: abdomen; kj2 19:31 Drug: Aspirin PO 81 mg PO once Route: PO; kj2 Medication: 20:05 VIS not applicable for this client. kj2 Outcome: 18:45 Decision to Hospitalize by Provider. rt 20:47 Admitted to Med/surg room 224, kj2 20:47 Condition: stable 20:47 Instructed on the need for admit, 20:48 Patient left the ED. kj2 Signatures: Dispatcher [employer] EDMS Kareem Narvaezi 3 Vinh Watson, RN RN jl7 Paul Hansen MD MD rt Oskar Saeed RN RN 5 Yara Rice 5 Charito Rice, RN RN kj2
[2023-12-23] MEDS ORDERED: ASPIRIN 81 MG CHEWABLE TABLET ONE (19:25)
[2023-12-23] MEDS ORDERED: ENOXAPARIN 80 MG/0.8 ML SQ ONE (19:25)
[2023-12-23] MEDS ORDERED: CEFEPIME 2 GM in NA CHLORIDE 0.9% 100 ML IV SCH (21:00)
[2023-12-23] MEDS: ALBUTEROL 2.5 MG/3 ML NEB SOL NEB SCH (21:18)
[2023-12-23] MEDS: IPRATROPIUM BROM 0.5MG/2.5ML NEB SCH (21:18)
[2023-12-23 21:47] VITALS: BMI 28.7
[2023-12-23] MEDS: CEFEPIME 2 GM in NA CHLORIDE 0.9% 100 ML IV SCH (22:01)
[2023-12-24 07:11] LABS: AST/SGOT 22 U/L (15-37); Albumin 2.9 g/dL (3.4-5.0); Albumin/Globulin Ratio 0.7 (1.1-1.8); Alkaline Phosphatase 173 U/L (45-117); Anion Gap 9.4 mEq/L (5.0-15.0); BUN Blood Urea Nitrogen 20 mg/dL (7-18); Bicarbonate 25 mEq/L (21-32); Bilirubin Total 0.6 mg/dL (0.2-1.0); Globulin 3.9 g/dL (2.3-3.5); Glomerular Filtration Rate 36 ml/min (=/>90); Glucose Level 120 mg/dL (74-106); Potassium 4.4 mEq/L (3.5-5.1); Protein, Total 6.8 g/dL (6.4-8.2); Sodium Level 138 mEq/L (136-145)
[2023-12-24 07:11] LABS: Specific Gravity 1.012 (1.005-1.030); Sqamous Epithelial <5 /HPF (None Seen); Urine Bacteria <20 /HPF (<20); Urine Bilirubin NEGATIVE (Negative); Urine Blood Negative (Negative); Urine Clarity Turbid (Clear); Urine Color Light-Yellow (Yellow); Urine Culture Reflex Order NOT NEEDED; Urine Glucose NEGATIVE (Negative); Urine Granular Casts 0-5 /LPF (None Seen); Urine Ketones NEGATIVE (Negative); Urine Microscopic Reflex YN ORDER UMIC; Urine Mucus Slight /HPF (None Seen); Urine Nitrite NEGATIVE (Negative); Urine Protein NEGATIVE (Negative); Urine RBC <5 /HPF (None Seen); Urine Urobilinogen Normal (Normal); Urine WBC <5 /HPF (<5)
[2023-12-24 07:14] LABS: ALT/SGPT < 14 U/L (16-61)
[2023-12-24 07:15] LABS: Troponin High Sensitivity 437.4 pg/mL (<58.9)
[2023-12-24 07:23] LABS: Absolute Basophils 0.1 K/uL (0-0.5); Absolute Eosinophils 0.1 K/uL (0-0.5); Absolute Lymphocytes (CBC) 1.1 K/uL (0.7-4.9); Absolute Monocytes 1.1 K/uL (0.1-1.3); Absolute Neutrophil 7.2 K/uL (1.8-8.0); Basophils % 0.6 % (0-1.3); Eosinophils % 1.1 % (0-4.4); Hematocrit 31.8 % (39.6-49.0); Lymphocytes % 11.5 % (15.3-44.8); MCH 26.4 pg (27.0-35.0); MCHC 31.5 g/dL (32.0-36.0); MCV 83.9 fL (80-100); MPV 8.6 fL (7.6-11.3); Monocytes % 11.5 % (3.3-12.3); Neutrophils % 75.3 % (41.7-73.7); Platelets 90 thou/uL (152-406); RBC Red Blood Cell Count 3.79 M/uL (4.33-5.43); Red Cell Distribution Width 17.2 % (12.1-15.2)
--- NOTE | 2023-12-24 08:13 | RAD REPORT ---
EXAM: Chest Pa And Lat (2 Views) HISTORY: dyspnea COMPARISON: 12/23/2023 FINDINGS: LUNGS/PLEURA: Improved lung volumes and aeration of the medial lung bases compared with yesterday. MEDIASTINUM: The mediastinal silhouette is within normal limits. CARDIAC: Cardiac likely. Sternotomy. UPPER ABDOMEN: Interposed colon in the right upper quadrant BONES: No acute fracture. LINES/TUBES/OTHER: N/A IMPRESSION: Improved lung volumes compared with 12/23/2023. Opacities in the medial lung bases likely reflect atel ectasis. No acute findings identified.
[2023-12-24 08:18] LABS: Blood Morphology Comment NOT SEEN (NOT SEEN); Platelet Estimate DECR; Platelets Clumped NOTED; Platelets, Giant NOTED; White Blood Cell Scan OK (OK)
[2023-12-24] MEDS: ASPIRIN 81 MG CHEWABLE TABLET PO SCH (08:28)
[2023-12-24] MEDS: ENOXAPARIN 40 MG/0.4 ML SQ SCH (09:00)
[2023-12-24] MEDS: FUROSEMIDE 40 MG/4 ML VIAL IV ONE (10:31)
--- NOTE | 2023-12-24 12:59 | HP ---
Date of Admission: 12/24/2023 Chief Complaint: Leg swelling and shortness of breath. History Of Present Illness: This is a 73-year-old male patient with multiple chronic comorbidities, came into emergency room with leg swelling and shortness of breath. Denies any chest pain. No fever. No chills. He has chronic cough due to underlying COPD that has not changed any. Also has shortness of breath with activity, which has gotten worse lately with this leg swelling problem. His last office visit was on 11/20/2023. At that time, his weight at office was 176.4 pounds, and he had bilateral grade 1 pedal edema, which is his chronic findings. After he was evaluated in the emergency room yesterday, he was admitted to the hospital with acute exacerbation of his congestive heart failure along with COPD exacerbation and cellulitis of lower extremity. When I saw him this morning, he denied any other new complaints. Denies any chest pain. Allergies: HE IS LISTED ALLERGIC TO BETADINE CAUSING RASH. Medications: According to office records, he is on albuterol inhaler 2 puffs 4 times a day as needed for shortness of breath, albuterol nebulizer treatment 4 times a day as needed for shortness of breath, Combivent Respimat inhaler takes 2 puffs 4 times a day, aspirin 81 mg daily, atorvastatin 40 mg daily at bedtime, furosemide 80 mg 2 times a day, levothyroxine 25 mcg daily, Tradjenta 5 mg daily, montelukast 10 mg daily, pantoprazole 40 mg daily, potassium chloride 20 mEq takes half a tablet once a day, ropinirole 1 mg 2 times a day, valacyclovir 500 mg daily. Review of Systems: Respiratory: As mentioned above. Cardiovascular: As mentioned above. All other systems reviewed and negative. 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 Nonalcoholic fatty liver disease, hepatitis C, which was treated in the past by Dr. Fregoso, constipation, chronic kidney disease, benign prostatic hypertrophy, osteoarthritis at multiple sites, lumbar spinal stenosis, and hypokalemia. Past Surgical History: Significant for teeth extraction, coronary artery bypass surgery, fracture of right radius and ulna, hip surgery and knee surgery. Family History: Mother had diabetes, tuberculosis, and Alzheimer disease. Brother had stroke. Social History: Prior history of smoking but not at present time and prior history of alcohol use, which he quit in 2006. Physical Examination: Vital Signs: Temperature 97.8, pulse 62, respiratory rate 18, blood pressure 107/52, oxygen saturation 97%. Height 5 feet 10 inches, weight 200 pounds. General: Awake, alert, oriented, not in distress. HEENT: Head atraumatic, normocephalic. Conjunctivae nonerythematous. Sclerae white. Mouth, no thrush or edema noted. Ears/Nose, no mass, lesion, discharge noted. Neck: Supple. No JVD, lymph nodes, bruit, thyromegaly noted. Lungs: Bilateral good equal air entry. Clear to auscultation. No rhonchi. Presence of rales noted in lower lung parrish. Not using accessory muscles of respiration. Heart: Normal heart sounds, no murmur or gallop. Abdomen: Soft, bowel sounds normal. No guarding, rigidity, tenderness, mass, hepatosplenomegaly, distention, or bruit noted. Extremities: No calf tenderness. Bilateral grade 4 pedal edema extending all the way to upper thighs. Skin: No rash, ulcer, cellulitis. Very slight warmness of the skin involving both lower extremities. No open wound. No discharge bleeding. Lymphatics: No lymph node enlargement in neck, supraclavicular, infraclavicular region. Neuro: No focal neurological deficit. Chest: Unremarkable. External Genitalia: Deferred. Rectal: Deferred. Laboratory Data: Yesterday white count 8.8, hemoglobin 11.3 platelets 109. Today, white count 9.5, hemoglobin 10, platelets 90. Yesterday, sodium 139, potassium 4.5, chloride 107, bicarb 25, BUN 13, creatinine 1.71, glucose 121. Today, sodium 138, potassium 4.4, chloride 108, bicarb 25, BUN 20, creatinine 1.90, glucose 120. Troponin first set 301, second set 323, and third set 437. Chest x-ray showed some bibasilar atelectasis. ProBNP 7552. EKG shows atrial fibrillation, right ventricular hypertrophy, inferior infarct, anterolateral infarct, premature ventricular complexed, supsect arm lead reversal. Impression: 1. Congestive heart failure. 2. Thrombocytopenia. 3. Chronic kidney disease. 4. Type 2 diabetes mellitus. 5. Hypothyroidism. 6. Acute exacerbation of chronic obstructive pulmonary disease. 7. Hypertension. 8. Hyperlipidemia. 9. Coronary artery disease. 10. Paroxysmal atrial fibrillation. 11. Gastroesophageal reflux disease. Plan: We will admit the patient to hospital for further evaluation and management of this problem. The patient is appropriate for inpatient and is expected to spend 2 midnights in hospital. We will consult information services vice president for elevated cardiac enzymes, which could be non-STEMI versus stress-induced ischemia. We will look into that possibilities and I have discussed this in detail with the patient. We will get echo with Doppler tomorrow. Lovenox was started 80 mg subcutaneous injection daily in view of his renal insufficiency. We will use once a day dosing per order. For thrombocytopenia, no need for any further intervention except monitoring at this time. For congestive heart failure, we will go ahead and use IV Lasix per order. Monitor intake output daily weight. Monitor renal function and electrolytes. For COPD exacerbation, we will treat it with nebulizer treatment. No need for any steroids at this time. For his cellulitis of lower extremities, cefepime was started which we will continue at present time. For hypothyroidism, we will continue his levothyroxine per order and no need for further intervention. For his gastroesophageal reflux disease, we will continue his pantoprazole per order and no need for further intervention. For hyperlipidemia, he takes atorvastatin 40 mg daily, which will be continued per order. Total time spent 80 minutes that includes review of last office visit record from 11/20/2023, review of emergency room visit records, communication with the emergency room physician, and performing today's evaluation and management. I will see him tomorrow for followup. ANNA/MODL Voice ID: [id number] MTDD
--- NOTE | 2023-12-24 13:21 | P.CNS ---
Date of Consult: 12/24/23 Chief Complaint: heart failure History of Present Illness: Patient with PMH of diastolic heart failure, pAF, CAD, presented with worsening bilateral lower extremities edema and SOB, denies chest pain, no palpitations, no syncope. Allergies povidone-iodine [From Betadine] Allergy (Mild, Verified 07/28/23 22:44) Rash Home medications list reviewed: Yes Home Medications: RX: Atorvastatin Calcium [Lipitor] 1 tab PO BEDTIME 12/05/21 RX: Levothyroxine Sodium 1 tab PO DAILY 12/05/21 RX: Linagliptin [Tradjenta] 1 tab PO DAILY 12/05/21 RX: Montelukast [Singulair*] 1 tab PO DAILY 12/05/21 RX: Ropinirole HCl [Requip*] 1 tab PO BID 12/05/21 RX: Valacyclovir HCl [Valtrex] 1 tab PO DAILY 12/05/21 RX: Furosemide 1 tab PO BID 07/30/23 Aspirin [Aspirin EC 81 MG] 1 tab PO DAILY 12/23/23 - Past Medical/Surgical History Diabetic: No -: DM -: COPD -: Hx [place] -: Hx Diffuse Large B Cell Lymphoma (DLBCL) -: Hyperlipidemia -: HTN -: Hypothyroidism -: Osteoarthritis -: cva -: knee replacement Left -: open heart surgery -: left hip repLACEMENT -: METAL PLATED IN RIGHT ARM - Social History Smoking Status: Unknown if ever smoked Alcohol use: No CD- Drugs: No Caffeine use: Yes Place of Residence: Home Review of Systems 10-point ROS is otherwise unremarkable Physical Examination Temp Pulse Resp BP Pulse Ox 97.9 F 78 16 185/74 H 98 12/24/23 12:00 12/24/23 12:00 12/24/23 12:00 12/24/23 12:12/24/23 12:00 General: Alert, In no apparent distress HEENT: Atraumatic, PERRLA, Mucous membr. moist/pink, EOMI, Sclerae nonicteric Neck: Supple, 2+ carotid pulse no bruit, No LAD, Without JVD or thyroid abnormality Respiratory: Diminished, Crackles/rales Cardiovascular: Edema, Irregular heart rate/rhythm Gastrointestinal: Normal bowel sounds, No tenderness Musculoskeletal: No tenderness Integumentary: No rashes Neurological: Normal gait, Normal speech, Normal tone, Normal affect Lymphatics: No axilla or inguinal lymphadenopathy Laboratory Data (last 24 hrs) 12/23/23 12/23/23 12/23/23 17:40 17:40 17:40 WBC 8.80 Hgb 11.3 L Hct 35.4 L Plt Count 109 L PT 13.7 H INR 1.23 APTT 27.6 Sodium 139 Potassium 4.5 BUN 13 Creatinine 1.71 H Glucose 121 H Magnesium 2.3 Total Bilirubin 0.8 AST 26 ALT 17 Alkaline Phosphatase 211 H - Problems (1) Acute on chronic diastolic CHF (congestive heart failure) Current Visit: No Status: Chronic Plan: Lasix 40 mg IV TID. Monitor input and output monitor and correct electrolytes. (2) Atrial fibrillation Current Visit: No Status: Chronic Plan: Lopressor 25 mg po BID Heparin drip for now. (3) CAD (coronary artery disease) Current Visit: No Status: Chronic Plan: Patient got mild troponin leak, denies chest pain, which can be related to acute heart failure, cellulitis and ASHLEY continue to trend troponin until peak and down trending continue ASA 81 mg daily continue Heparin ACS protocol.
[2023-12-24] MEDS: FUROSEMIDE 40 MG/4 ML VIAL IV SCH (15:31)
[2023-12-24] MEDS ORDERED: FUROSEMIDE 40 MG/4 ML VIAL IV SCH (17:00)
[2023-12-24] MEDS: ROPINIROLE HCL 1 MG TAB PO SCH (20:47)
[2023-12-24] MEDS: ATORVASTATIN 40 MG TAB PO SCH (20:47)
[2023-12-25] MEDS: PANTOPRAZOLE 40MG TABLET PO SCH (05:43)
[2023-12-25 07:03] LABS: Absolute Eosinophils 0.4 K/uL (0-0.5); Absolute Lymphocytes (CBC) 0.6 K/uL (0.7-4.9); Absolute Neutrophil 4.5 K/uL (1.8-8.0); Basophils % 0.4 % (0-1.3); Eosinophils % 5.9 % (0-4.4); Hematocrit 32.2 % (39.6-49.0); Hemoglobin 10.3 g/dL (13.6-17.9); Lymphocytes % 9.7 % (15.3-44.8); MCH 26.8 pg (27.0-35.0); MCHC 32.1 g/dL (32.0-36.0); MCV 83.4 fL (80-100); MPV 8.8 fL (7.6-11.3); Monocytes % 15.9 % (3.3-12.3); Neutrophils % 68.1 % (41.7-73.7); Platelets 102 thou/uL (152-406); RBC Red Blood Cell Count 3.85 M/uL (4.33-5.43); Red Cell Distribution Width 17.1 % (12.1-15.2)
[2023-12-25 07:23] LABS: Anion Gap 4.2 mEq/L (5.0-15.0); Magnesium 2.2 mg/dL (1.6-2.4); Potassium 4.2 mEq/L (3.5-5.1)
[2023-12-25] MEDS: HOME MED 1 EA UNK (Linagliptin [Tradjenta] 5 MG Tablet) PO SCH (07:29)
[2023-12-25] MEDS: LEVOTHYROXINE SOD 0.025 MG TAB PO SCH (08:42)
[2023-12-25] MEDS: ENOXAPARIN 80 MG/0.8 ML SQ SCH (08:42)
[2023-12-25] MEDS: MONTELUKAST 10 MG TAB PO SCH (08:42)
--- NOTE | 2023-12-25 09:53 | P.PN ---
Subjective Date of Service: 12/25/23 Chief Complaint: heart failure Subjective: No new changes, No C/O voiced, Tolerating diet, Ambulating, Improving Review of Systems 10-point ROS is otherwise unremarkable Physical Examination - Vital Signs Temperature: 97.7 F Blood Pressure: 106/65 Pulse: 64 Respirations: 24 Pulse Ox (%): 96 - Physical Exam General: Alert, In no apparent distress HEENT: Atraumatic, PERRLA, EOMI Neck: Supple, JVD not distended Respiratory: Clear to auscultation bilaterally, Normal air movement Cardiovascular: Edema, Irregular heart rate/rhythm Gastrointestinal: Normal bowel sounds, No tenderness Musculoskeletal: No tenderness Integumentary: No rashes Neurological: Normal speech, Normal tone, Normal affect Lymphatics: No axilla or inguinal lymphadenopathy - Studies Medications List Reviewed: Yes Assessment And Plan - Current Problems (Diagnosis) (1) Acute on chronic diastolic CHF (congestive heart failure) Current Visit: No Status: Chronic Plan: Lasix 40 mg IV TID. Monitor input and output monitor and correct electrolytes. (2) Atrial fibrillation Current Visit: No Status: Chronic Plan: Lopressor 25 mg po BID Heparin drip for now. (3) CAD (coronary artery disease) Current Visit: No Status: Chronic Plan: Patient got mild troponin leak, denies chest pain, which can be related to acute heart failure, cellulitis and ASHLEY continue to trend troponin until peak and down trending continue ASA 81 mg daily continue Heparin ACS protocol.
--- NOTE | 2023-12-25 10:20 | EKG ---
Test Date: 2023-12-23 Test Time: 17:27:20 Pattern Maker: CALEB MEASUREMENT RESULTS: Intervals: Rate: 86 [place]: QRSD: 128 QT: 340 QTc: 406 [place]: P: [place]: QRS: 241 T: 133 INTERPRETIVE STATEMENTS: Suspect arm lead reversal, interpretation assumes no reversal Atrial fibrillation with premature ventricular or aberrantly conducted complexes Nonspecific intraventricular block Right ventricular hypertrophy Inferior infarct, age undetermined Anterolateral infarct, age undetermined Abnormal ECG Compared to ECG 09/18/2023 01:56:14 Right ventricular hypertrophy now present Left-axis deviation no longer present Right bundle-branch block no longer present Myocardial infarct finding still present Electronically Signed On 12-25-23 10:19:22 CDT by Vinicio Beasley
--- NOTE | 2023-12-25 22:03 | PN ---
Date of Progress Note: 12/25/2023 Subjective: The patient was seen this morning for followup. No new complaints or problems reported by the patient. He was sleeping, easily arousable, not in distress. Denies any new complaints. Objective: Vital Signs: Reviewed. HEENT: Unremarkable. Lungs: Clear to auscultation except bilateral basal rales. Not using accessory muscles of respiration. Heart: Sounds normal. Abdomen: Soft. Bowel sounds normal. No guarding, rigidity, tenderness, distention. Extremities: Bilateral leg edema, slightly better compared to yesterday. Skin: [place], warm skin involving both lower legs, unchanged from yesterday. Impression: 1. Cellulitis, bilateral lower extremity. 2. Congestive heart failure. 3. Chronic kidney disease. 4. Hypertension. 5. Hyperlipidmia. Plan: We will go ahead and continue current medication. Continue current antibiotic. We will repeat blood work tomorrow. Continue current nebulizer treatment. Possible discharge to go home day after tomorrow depending on his condition and details were discussed with the patient. ANNA/ARMANDO Voice ID: [id number] Report ID: [id number] MTDD
--- NOTE | 2023-12-26 10:05 | ECHO ---
HEIGHT: 5 ft 10 in WEIGHT: 201 lb 6.4 oz DATE OF STUDY: 12/25/[address]: Ray Veliz MD 2-DIMENSIONAL: YES M.MODE: YES DOPPLER: YES COLOR FLOW: YES TDS: PORTABLE: YES DEFINITY: BUBBLE STUDY: DIAGNOSIS: CONGESTIVE HEART FAILURE CARDIAC HISTORY: CATHERIZATION: YES SURGERY: YES PROSTHETIC VALVE: NO PACEMAKER: NO MEASUREMENTS (cm) DIASTOLIC (NORMALS) SYSTOLIC (NORMALS) IVSd 1.0 (0.6-1.2) LA Diam 4.7 (1.9-4.0) LVEF 35-40% LVIDd 4.6 (3.5-5.7) LVIDs 3.3 (2.0-3.5) %FS LVPWd 1.1 (0.6-1.2) Ao Diam 3.0 (2.0-3.7) 2 DIMENSIONAL ASSESSMENT: RIGHT ATRIUM: SEVERELY ENLARGED LEFT ATRIUM: SEVERELY ENLARGED RIGHT VENTRICLE: NORMAL LEFT VENTRICLE: NORMAL TRICUSPID VALVE: SEVERE TRICUSPID REGURGITATION MITRAL VALVE: NORMAL PULMONIC VALVE: NORMAL AORTIC VALVE: NORMAL PERICARDIAL EFFUSION: NONE AORTIC ROOT: NORMAL LEFT VENTRICULAR WALL MOTION: MODERATE GLOBAL HYPOKINESIS DOPPLER/COLOR FLOW: DIASTOLIC DYSFUNCTION COMMENTS: 1. MODERATE GLOBAL HYPOKINESIS, EJECTION FRACTION 35-40%, MODERATELY REDUCED LEFT VENTRICULAR SYSTOLIC FUNCTION 2. SEVERE RIGHT AND LEFT ATRIAL ENLARGEMENT 3. SEVERE TRICUSPID REGURGITATION 4. ELEVATED FILLING PRESSURE (RIGHT ATRIUM GREATER THAN 20 mmHg) TECHNOLOGIST: JODEE LEA
[2023-12-26] MEDS: METOLAZONE 2.5 MG TABLET PO SCH (13:51)
--- NOTE | 2023-12-26 19:39 | PN ---
Date of Progress Note: 12/26/2023 Subjective: The patient was seen this morning for followup. He was sitting at bedside. No new comp laints or problems reported. Denies any chest pain. Objective: Vital Signs: Reviewed. HEENT: Unremarkable. Lungs: Bilateral good equal air entry. Presence of rales in both lung base. Not using accessory mu scles of respiration. Heart: Sounds normal. Abdomen: Soft. Bowel sounds normal. No guarding, rigidity, tenderness, or distention. Extremities: Bilateral leg edema, unchanged from yesterday. Skin: Examination shows slight warmness and pink discoloration of both lower extremity skin, better than yesterday. Impression: 1.Congestive heart failure. 2.COPD. 3.Chronic kidney disease. 4.Hypertension. 5.Diabetes mellitus. Plan: We will go ahead and continue current diuretic therapy. Dr. Beasley did call and discuss manuela hooper with me regarding his echocardiogram finding. His ejection fraction has gone down and has severel y dilated left and right atrium. The patient is not really a good candidate for any aggressive inter vention and especially doing angiogram with use of dye will put him at risk of worsening of the renal function including renal failure. On any normal given day, he gets short of breath with any minimal activity including just walking from room to room which is his baseline. So at this time, my recomm endation is provide conservative treatment and Dr. Beasley agrees with that as well. His elevated car diac enzymes are due to stress-induced ischemia and no need for further intervention on it. Dr. Wharton sh has suggested to add 1 dose of metolazone 2.5 mg to see if that adds onto his diuretic effect anna g with Lasix and I will see him tomorrow for followup. We will continue his antibiotics per order. Possible discharge to go home in next 1 or 2 days. The patient was advised not to keep his leg in de pendent position all the time and try to keep the legs elevated as much as he can. ANNA/MODL Voice ID: [id number] Report ID: [id number]
[2023-12-27 05:20] LABS: Absolute Basophils 0.1 K/uL (0-0.5); Absolute Eosinophils 0.3 K/uL (0-0.5); Absolute Lymphocytes (CBC) 0.5 K/uL (0.7-4.9); Absolute Monocytes 0.8 K/uL (0.1-1.3); Absolute Neutrophil 3.5 K/uL (1.8-8.0); Basophils % 1.3 % (0-1.3); Eosinophils % 6.5 % (0-4.4); Hematocrit 30.1 % (39.6-49.0); Hemoglobin 9.7 g/dL (13.6-17.9); Lymphocytes % 10.1 % (15.3-44.8); MCH 26.7 pg (27.0-35.0); MCHC 32.4 g/dL (32.0-36.0); MCV 82.5 fL (80-100); Monocytes % 14.8 % (3.3-12.3); Neutrophils % 67.3 % (41.7-73.7); Nucleated Red Blood Cells % 0.1 % (0-0); Platelets 127 thou/uL (152-406); RBC Red Blood Cell Count 3.65 M/uL (4.33-5.43)
[2023-12-27 05:38] LABS: Anion Gap 7.8 mEq/L (5.0-15.0); Potassium 3.8 mEq/L (3.5-5.1)
--- NOTE | 2023-12-27 12:26 | P.PN ---
Subjective Date of Service: 12/27/23 Chief Complaint: heart failure Subjective: No new changes, No C/O voiced, Tolerating diet, Ambulating, Improving Review of Systems 10-point ROS is otherwise unremarkable Physical Examination - Vital Signs Temperature: 98.5 F Blood Pressure: 134/81 Pulse: 75 Respirations: 18 Pulse Ox (%): 94 - Physical Exam General: Alert, In no apparent distress HEENT: Atraumatic, PERRLA, EOMI Neck: Supple, JVD not distended Respiratory: Clear to auscultation bilaterally, Normal air movement Cardiovascular: Regular rate/rhythm, Normal S1 S2 Gastrointestinal: Normal bowel sounds, No tenderness Musculoskeletal: No tenderness Integumentary: No rashes Neurological: Normal speech, Normal tone, Normal affect Lymphatics: No axilla or inguinal lymphadenopathy - Studies Medications List Reviewed: Yes Assessment And Plan - Current Problems (Diagnosis) (1) Acute on chronic diastolic CHF (congestive heart failure) Current Visit: No Status: Chronic Plan: Lasix 40 mg IV TID. Monitor input and output monitor and correct electrolytes. responded well to Metolazone 2.5 mg x1, will repeat today suggest discharge on Lasix 60 mg po BID and Metolazone 2.5 mg every other day and repeat BMP in 1 week. (2) Atrial fibrillation Current Visit: No Status: Chronic Plan: Lopressor 25 mg po BID Heparin drip for now. start Eliquis 5 mg po BID on discharge (3) CAD (coronary artery disease) Current Visit: No Status: Chronic Plan: History of CAD and CABG, last angiogram in 2020 with patent ALBERTO-LAD and PCI of RCA was done, Patient got mild troponin leak, denies chest pain, which can be related to acute heart failure, cellulitis and ASHLEY Echo shows mild drop in EF but patient is not a good candidate for repeated coronary angiogram and intervention. continue to trend troponin until peak and down trending continue ASA 81 mg daily continue Heparin ACS protocol until discharge.
--- NOTE | 2023-12-27 13:06 | EKG ---
Test Date: 2023-12-23 Test Time: 17:55:37 Wind Turbine Installer: ES MEASUREMENT RESULTS: Intervals: Rate: 84 [place]: 194 QRSD: 32 QT: 246 QTc: 290 [place]: P: [place]: 194 QRS: 120 T: 12 INTERPRETIVE STATEMENTS: Sinus rhythm with marked sinus arrhythmia Indeterminate axis Right ventricular hypertrophy with repolarization abnormality Marked ST abnormality, possible anteroseptal subendocardial injury Abnormal ECG Compared to ECG 12/23/2023 17:27:20 Indeterminate axis now present Early repolarization now present ST (T wave) deviation now present Atrial fibrillation no longer present Ventricular premature complex(es) no longer present Myocardial infarct finding no longer present Electronically Signed On 12-27-23 12:57:50 CDT by Vinicio Beasley
--- NOTE | 2023-12-27 18:59 | PN ---
Date of Progress Note: 12/27/2023 Subjective: The patient was seen this morning for followup. No new complaints or problems reported by the patient. He was sleeping, easily arousable, not in distress. Denies any new complaints. Objective: Vital Signs: Reviewed. HEENT: Unremarkable. Lungs: Bilateral good equal air entry. Clear to auscultation. Heart: Sounds normal. Abdomen: Soft. Bowel sounds normal. No guarding, rigidity, tenderness, distention. Extremities: Trace leg edema, overall much better than before. Skin: Warmness from both lower extremities significantly better now. There is no open wound. Laboratory Data: Sodium 140, potassium 3.8, chloride 107, bicarb 29, BUN 22, creatinine 1.75, glucos e 123, magnesium 2. White count 5.2, hemoglobin 9.7, platelets 127. Impression: 1.Chronic systolic heart failure, with acute exacerbation. 2.Acute exacerbation of COPD. 3.Chronic kidney disease stage IIIB. 4.Hypertension. 5.Cellulitis, bilateral lower extremities. 6.Anemia. 7.Thrombocytopenia. Plan: We will go ahead and continue current diuretic therapy, which is Lasix as well as metolazone. The patient has shown significant improvement. We will continue current medications. We will michelle nue current antibiotics. The patient's last cardiac cath from 2020, results reviewed with cardiologi and at this time, no need for any further cardiac intervention as per my discussion with cardiolog ist except the continuation of current medical management. I will see him tomorrow for followup, possibl e discharge to go home tomorrow. ANNA/MODL Voice ID: [id number] Report ID: [id number]
[2023-12-28 08:27] VITALS: BP 136/81
[2023-12-28 08:59] VITALS: TEMP 98
[2023-12-28 09:01] VITALS: O2SAT 98
--- NOTE | 2023-12-28 18:59 | DS ---
Date of Discharge: 12/28/2023 Disposition: Discharged to go home. Physical Examination: HEENT: Unremarkable. Lungs: Clear to auscultation. Heart: Sounds normal. Abdomen: Soft. Bowel sounds normal. No guarding, rigidity, tenderness, distention. Extremities: No leg edema. Skin: Normal skin color over both lower extremities. No warmness. No open wound. Laboratory Data: Upon admission, white count 8.8, hemoglobin 11.3, platelets 109. Yesterday, white count 5.2, hemoglobin 9.7, platelets 127. For chemistry yesterday, sodium 140, potassium 3.8, chlori de 107, bicarb 29, BUN 22, creatinine 1.75, glucose 123, magnesium 2. Last troponin was 437, second troponin was 323, and first troponin was 301. Initial chemistry, sodium 139, potassium 4.5, chloride 107, bicarb 25, BUN 13, creatinine 1.71. Lactic acid 1.8. Liver function tests unremarkable. ProB SHIP SELF DEFENSE SYSTEM MK1 OPERATOR 7552. Echocardiogram shows ejection fraction 35% to 40%, severe right and left atrial enlargement and severe tricuspid regurgitation. Hospital Course: This is a 73-year-old pleasant male patient, came into emergency room with complain ts of shortness of breath and leg swelling. Please see dictated H and P for more information. After the patient was evaluated in the emergency room, he was admitted to the hospital with acute exacerba tion of congestive heart failure as well as COPD problem. The patient was treated with oxygen nebuli zer treatment and IV diuretic therapy. Cardiology consultation was requested. His cardiac enzymes w ere elevated, which was thought to be stress-induced ischemia and no evidence of any acute myocardial infarction. Sizing Machine And Drier Operator was consulted. Echocardiogram done, results reviewed, and no further card iac intervention was recommended by motion picture projectionist apprentice and conservative management was suggested and I also discussed this details with motion picture projectionist apprentice and also requested conservative management. The patient's last cardiac cath done in 2020 had shown about 90% to 95% stenosis of RCA, for which he had stent jese cement at that time. Metolazone was added 2.5 mg daily, so the patient has received it for last 2 da ys. Since his admission, the patient has done very well with diuretic therapy. His condition has im proved. His initial weight upon admission was 200 pounds and last weight today is 181 pounds. The p atient was discharged today in stable and improved condition with following discharge medications and instructions. Final Diagnoses: 1.Congestive heart failure, chronic, systolic, with acute exacerbation. 2.Acute exacerbation of COPD. 3.Chronic kidney disease, stage IIIB. 4.Thrombocytopenia. 5.Type 2 diabetes mellitus. 6.Hypothyroidism. 7.Hypertension. 8.Hyperlipidemia. 9.Coronary artery disease. 10.Paroxysmal atrial fibrillation. 11.Gastroesophageal reflux disease. Discharge Medications And Instructions: 1.Continue all prior home medication. 2.Take following new medications: a.Augmentin 500 mg 2 times a day for 1 week. b.Metolazone 2.5 mg take 1 tablet by mouth once a week on Monday and both of this prescriptions were sent to his pharmacy from my office. 3.Follow up at my office next week. Total time spent today 40 minutes. ANNA/ARMANDO Voice ID: [id number] Report ID: [id number]
== END 2023-12-28 10:00 | disposition home or self-care (01) | DRG 871 ==
LOC: ER 16:46 → ERHOLD 18:46 → 2ND 20:42
PROVIDERS: ADMIT Internal Medicine; ATTEND Internal Medicine
DX: A41.9 Sepsis, unspecified organism (principal); I50.33 Acute on chronic diastolic (congestive) heart failure; L03.116 Cellulitis of left lower limb; I13.0 Hypertensive heart and chronic kidney disease with heart failure and stage 1 through stage 4 chronic kidney disease, or unspecified chronic kidney disease; J44.1 Chronic obstructive pulmonary disease with (acute) exacerbation; N17.9 Acute kidney failure, unspecified; L03.115 Cellulitis of right lower limb; N18.32 Chronic kidney disease, stage 3b; E11.22 Type 2 diabetes mellitus with diabetic chronic kidney disease; E03.9 Hypothyroidism, unspecified; E78.5 Hyperlipidemia, unspecified; I48.0 Paroxysmal atrial fibrillation; D69.6 Thrombocytopenia, unspecified; D64.9 Anemia, unspecified; M19.09 Primary osteoarthritis, other specified site; K21.9 Gastro-esophageal reflux disease without esophagitis; N40.0 Benign prostatic hyperplasia without lower urinary tract symptoms; J44.9 Chronic obstructive pulmonary disease, unspecified; I25.10 Atherosclerotic heart disease of native coronary artery without angina pectoris; I25.2 Old myocardial infarction; Z79.82 Long term (current) use of aspirin; Z79.01 Long term (current) use of anticoagulants; Z86.73 Personal history of transient ischemic attack (TIA), and cerebral infarction without residual deficits; Z79.890 Hormone replacement therapy; Z96.642 Presence of left artificial hip joint; Z96.652 Presence of left artificial knee joint; Z79.899 Other long term (current) drug therapy
CPT/HCPCS: 36415; 71045; 71046; 80048; 80053; 80076; 81001; 83605; 83735; 83880; 84484; 85025; 85610; 85730; 87040; 93005; 93306; 94640; 96372; 96374; 96375; 99285; J0692; J1940; J7613; J7644

== ENCOUNTER 2024-01-16 15:22 | Emergency (ER) | payer OTHER ==
--- OUTSIDE RECORDS SUMMARY | 2024-01-16 15:26 | XMS REPORT | Clinical Summary ---
Author Name Unknown Organization [facility] Address [address] [place] [address] Care Team Providers Care Solar Applications Development Engineer Name Role Phone Ray Veliz MD Unavailable [phone] Dru Smith MD Primary Care Provider [phone] Allergies Active Allergy Reactions Criticality Noted Date [...] & Plan: Patient was seen by inpatient community health nursing director in September 2020 for atrial fibrillation with [...] has established a follow-up with his local community health nursing director in March for further management. 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 Advance Directives: Medical Power of Environmental Engineer Scientist 11/02/2020 Medical Power of Att orney * Full Code (Latest Code Status on File) Date Activated Date Inactivated Comments 10/07/2020 12:02 PM 11/14/2020 4:41 PM * Full Code Date Activated Date Inactivated Comments 09/17/2020 12:45 PM 09/23/2020 7:59 PM Care Teams Solar Applications Development Engineer Relationship Specialty Start Date End Date Ray Veliz MD [address] [place] [address] [phone] [email or web address] PCP - External Referring Internal Medicine 09/03/20 Dru Smith MD [address] [place] [address] [email or web address] PCP - General Lymphoma and Myeloma 09/16/20
--- NOTE | 2024-01-16 16:27 | RAD REPORT ---
EXAMINATION: CT HEAD WITHOUT CONTRAST CT CERVICAL SPINE WITHOUT CONTRAST CLINICAL INDICATION: Male, 73 years old. fall TECHNIQUE: Axial CT images from the skull base to the vertex without intravenous contrast. Axial CT i mages through the cervical spine were obtained without intravenous contrast. Sagittal and coronal reformatted images were created from the data set. Coronal and sagittal reformatted images were creat ed from the data set. One or more of the following dose reduction techniques were used: Automated exposure control, adjustment of the mA and/or kV according to patient size, and/or iterative reconstr uction. Unless otherwise specified, incidental findings do not require dedicated imaging follow-up. [id number]. COMPARISON: 07/17/2016, 09/18/2023 FINDINGS: Head: INTRACRANIAL: No acute intracranial hemorrhage. No hydrocephalus. No mass effect or midline shift. Sm all remote left frontal lobe cortical infarct. VASCULATURE: No visualized abnormalities in the arteries or dural venous sinuses. SCALP/SKULL: Right frontal hematoma. SINUSES: The visualized paranasal sinuses and mastoid air cells are predominantly clear. Cervical spine: ALIGNMENT: The cervical spine has normal alignment without scoliosis or spondylolisthesis. BONE: Vertebral body heights are maintained. No aggressive osseous lesions. Fusion across C2-3 may be congenital or developmental. DEGENERATIVE CHANGES: Multilevel cervical spondylosis with varying degrees of neural foraminal narrow ing. SOFT TISSUE: No significant abnormalities in the soft tissue of the neck. The visualized lung apices are clear. IMPRESSION: No acute intracranial abnormality. No acute fracture or traumatic malalignment of the cervical spine.
[2024-01-16] MEDS ORDERED: LIDOCAINE 2% W/EPI 1:200,000 MPF 20 ML VIAL IM ONE (16:46)
[2024-01-16 16:50] LABS: Absolute Basophils 0.1 K/uL (0-0.5); Absolute Eosinophils 0.5 K/uL (0-0.5); Absolute Lymphocytes (CBC) 0.9 K/uL (0.7-4.9); Absolute Monocytes 0.8 K/uL (0.1-1.3); Absolute Neutrophil 2.3 K/uL (1.8-8.0); Eosinophils % 10.9 % (0-4.4); Hematocrit 36.9 % (39.6-49.0); Lymphocytes % 19.6 % (15.3-44.8); MCH 26.8 pg (27.0-35.0); MCHC 32.4 g/dL (32.0-36.0); MCV 82.6 fL (80-100); MPV 7.7 fL (7.6-11.3); Monocytes % 17.1 % (3.3-12.3); Neutrophils % 50.4 % (41.7-73.7); Nucleated Red Blood Cells % 0.1 % (0-0); Platelets 171 thou/uL (152-406); RBC Red Blood Cell Count 4.47 M/uL (4.33-5.43); Red Cell Distribution Width 17.7 % (12.1-15.2)
[2024-01-16] MEDS ORDERED: TDAP (DIPHTH,PERTUSS(ACELL),TET VAC) 0.5 ML VIAL IMVAC ONE (17:28)
[2024-01-16] MEDS ORDERED: MUPIROCIN 2% OINT 22GM TUBE TOP ONE (17:29)
--- NOTE | 2024-01-16 17:29 | ER ---
Nurse's Notes [facility] Name: Valerio Berg Age: 73 yrs Sex: Male : 1950 Arrival Date: 01/16/2024 Time: : Bed 8 Private MD: Diagnosis: Fall on same level, unspecified;Forehead laceration Presentation: 01/15 15:45 Chief complaint: EMS states: patient usually uses a walker but did not today, was going ko1 to car and tripped, fell, striking head and nose. Patient is on blood thinners, did not loose consciousness. Care prior to arrival: Bleeding of injury controlled. Injury cleansed. Injury dressed. Mechanism of Injury: Fall from standing position. Trauma event details: Injury occurred in the [facility], Injury occurred: at home. Injury occurred: January 16, 2024 Injury occurred at: 15:00. 15:45 Acuity: ADRIÁN 3 ko1 15:45 Method Of Arrival: EMS: [facility] ko1 15:51 Coronavirus screen: At this time, the client does not indicate any symptoms associated ko1 with coronavirus-19. Ebola Screen: No symptoms or risks identified at this time. Initial Sepsis Screen: Does the patient meet any 2 criteria? No. Patient's initial sepsis screen is negative. Does the patient have a suspected source of infection? No. Patient's initial sepsis screen is negative. Risk Assessment: Do you want to hurt yourself or someone else? Patient reports no desire to harm self or others. Onset of symptoms was January 16, 2024. Trauma Activation: Not Applicable Physician: ED Physician; Name: ; Notified At: ; Arrived At: Physician: General Surgeon; Name: ; Notified At: ; Arrived At: Physician: Radiology; Name: ; Notified At: ; Arrived At: Physician: Respiratory; Name: ; Notified At: ; Arrived At: Physician: Lab; Name: ; Notified At: ; Arrived At: Historical: - Allergies: 15:51 Betadine; ko1 15:51 Povidone-Iodine; ko1 - PMHx: 15:51 Borderline Diabetes; Hypothyroidism; CVA; Myocardial infarction; COPD; Congestive heart ko1 failure; - Immunization history: Last tetanus immunization: unknown. - Infectious Disease History:: Denies. - Social history:: Smoking status: Patient denies any tobacco usage or history of. Screenin:45 Abuse screen: Denies threats or abuse. Denies injuries from another. Tuberculosis ko1 screening: No symptoms or risk factors identified. 16:26 [facility] ED Fall Risk Assessment (Adult) History of falling in the last 3 months, ko1 including since admission Yes- single mechanical fall (1 pt) Confusion or Disorientation No (0 pts) Intoxicated or Sedated No (0 pts) Impaired Gait Yes (1 pt) Mobility Assist Device Used Yes (1 pt) Altered Elimination No (0 pt) Score/Fall Risk Level 3 or more points = High Risk Oriented to surroundings, Maintained a safe environment, Educated pt \T\ family on fall prevention, incl call for assistance when getting out of bed, Assessed \T\ reinforced patient's understanding of fall precautions, Provided non-skid footwear, Hourly rounding (assess needs \T\ fall precautionary measures) done, Used ambulatory aids as needed (educated on \T\ assisted with), Used gait belt as appropriate Implemented a Fall Risk Plan of Care, Apply high fall risk patient identification: yellow non skid footwear/ fall signage, Remained w/in arm's length of patient and in sight while toileting, Offered frequent toileting (1:1 observation), Remained with patient while ambulating, Utilized family, sitter, or virtual numerical control lathe operator as indicated. Nutritional screening: No deficits noted. Primary Survey: 15:45 NO uncontrolled hemorrhage observed. A: The client is awake and alert. The airway is ko1 patent. Breathing/Chest: Spontaneous respiratory effort, equal unlabored respirations, breath sounds clear bilaterally, regular pattern, symmetrical chest rise and fall. Circulation: No external hemorrhage present. Regular and strong central pulse, skin warm/dry/normal color. Disability Pupils are equal, round, reactive to light and accommodation. Client is alert. Exposure/Environment: There is no evidence of uncontrolled external bleeding. Obvious injury(ies) are noted at this time: forehead laceration. Reassessment Alertness and Airway: Awake and alert. The airway is patent. Breathing: Spontaneous respiratory effort, equal unlabored respirations, breath sounds clear bilaterally, regular pattern with symmetrical chest rise and fall. Circulation: No external hemorrhage noted. Regular and strong central pulse, skin warm/dry/normal color. Disability: Pupils Pupils are equal, round, reactive to light and accomodation. Alert. Assessment: 15:45 General: Appears in no apparent distress. Behavior is calm, cooperative, appropriate ko1 for age. Pain: Complains of pain in forehead. Neuro: No deficits noted. EENT: No deficits noted. Cardiovascular: Reports. Cardiovascular: No deficits noted. Respiratory: No deficits noted. GI: No deficits noted. : No deficits noted. Derm: No deficits noted. Musculoskeletal: No deficits noted. Vital Signs: 15:45 BP 118 / 71; Pulse 111; Resp 16; Temp 97; Pulse Ox 99% on R/A; ko1 16:26 BP 114 / 62; Pulse 52; Resp 16; Pulse Ox 99% ; ko1 18:17 BP 118 / 66; Pulse 58; Resp 16; Pulse Ox 99% ; ko1 [place] Coma Score: 15:45 Eye Response: spontaneous(4). Motor Response: obeys commands(6). Verbal Response: ko1 oriented(5). Total: 15. Trauma Score (Adult): 15:45 Eye Response: spontaneous(1); Verbal Response: oriented(1); Motor Response: obeys ko1 commands(2); Systolic BP: > 89 mm Hg(4); Respiratory Rate: 10 to 29 per min(4); Rubens Score: 15; Trauma Score: 12 ED Course: 15:43 Patient arrived in ED. ko1 15:43 Arvin Amado DO is Attending Physician. ms3 15:44 Twyla Darling, RN is Primary Nurse. ko1 15:45 Patient has correct armband on for positive identification. Allergy band placed. Fall ko1 risk band placed. Bed in low position. Call light in reach. Side rails up X2. 15:45 Patient maintains SpO2 saturation greater than 95% on room air. ko1 15:47 Triage completed. ko1 15:51 Patient placed in an exam room, on a stretcher, on pulse oximetry, Patient notified of ko1 wait time. 16:22 CT Head C Spine In Process Unspecified. EDMS 16:26 Provided Education on: labs. Pulse ox on. NIBP on. Door closed. Noise minimized. Lights ko1 dimmed. Warm blanket given. Pillow given. 16:42 Type And Screen Sent. ko1 16:42 CBC with Diff Sent. ko1 16:42 Basic Metabolic Panel Sent. ko1 16:43 Initial lab(s) drawn, by me, sent to lab. Missed attempt(s): 22 gauge in left ap3 antecubital area. 17:28 Roderick Barnard DO is Referral Physician. ms3 17:40 Assist provider with laceration repair on forehead using sutures. Set up tray. ko1 Performed by Arvin Amado DO Patient tolerated well. 18:17 Patient did not have IV access during this emergency room visit. ko1 18:19 Thermoregulation: warm blanket given to patient. ko1 Administered Medications: 17:30 Drug: Bacitracin Topical Ointment (500 unit/g) 1 application Topical once Route: ko1 Topical; Site: affected area; 18:00 Follow up: Response: No adverse reaction ko1 17:31 Drug: Boostrix Tdap IM 0.5 ml IM once; as a single dose Route: IM; Site: right deltoid; ko1 18:01 Follow up: Response: No adverse reaction ko1 Medication: 17:40 Vaccine Information Statement (VIS) provided today. Questions and/or concerns ko1 addressed. VIS edition date: 2017. Output: 18:18 Urine: 400ml (Voided); Total: 400ml. ko1 Outcome: 17:29 Discharge ordered by MD. ms3 18:17 Discharged to home via wheelchair, with family, ko1 18:17 Condition: stable 18:17 Discharge instructions given to patient, family, Instructed on discharge instructions, follow up and referral plans. wound care, Demonstrated understanding of instructions, follow-up care, medications, wound care, 18:18 Patient's length of stay was extended due to staffing issues within the emergency ko1 department. 18:19 Patient left the ED. ko1 Signatures: Dispatcher [employer] EDMS Afshan Corcoran, RN RN ap3 Arvin Amado DO DO ms3 Twyla Darling RN RN ko1
--- NOTE | 2024-01-16 17:29 | EDPHYS ---
Physician Documentation [facility] Name: Valerio Berg Age: 73 yrs Sex: Male : 1950 Arrival Date: 01/16/2024 Time: 15: Bed 8 Private MD: ED Physician Arvin Amado HPI: 01/15 17:43 This 73 yrs old Black Male presents to ER via EMS with complaints of Fall Injury. ms3 17:43 73-year-old male with past medical history of diabetes, hypothyroidism, CVA, myocardial ms3 infarction, COPD, failure presents to the emergency department status post trip and fall. Patient states he is having moderate forehead pain where he sustained a laceration.. Historical: - Allergies: 15:51 Betadine; ko1 15:51 Povidone-Iodine; ko1 - PMHx: 15:51 Borderline Diabetes; Hypothyroidism; CVA; Myocardial infarction; COPD; Congestive heart ko1 failure; - Immunization history: Last tetanus immunization: unknown. - Infectious Disease History:: Denies. - Social history:: Smoking status: Patient denies any tobacco usage or history of. ROS: 17:43 Constitutional: Negative for fever, and chills. Cardiovascular: Negative for chest ms3 pain, and palpitations. Respiratory: Negative for shortness of breath, cough, wheezing, and pleuritic chest pain, Abdomen/GI: Negative for abdominal pain, nausea, vomiting, diarrhea, and constipation, 17:43 Skin: Positive for laceration(s), Exam: 17:43 Constitutional: This is a well developed, well nourished patient who is awake, alert, ms3 and in no acute distress. 17:43 Cardiovascular: Regular rate and rhythm with a normal S1 and S2. No gallops, murmurs, or rubs. Normal PMI, no JVD. No pulse deficits. Respiratory: Lungs have equal breath sounds bilaterally, clear to auscultation and percussion. No rales, rhonchi or wheezes noted. No increased work of breathing, no retractions or nasal flaring. Abdomen/GI: Soft, non-tender, with normal bowel sounds. No distension or tympany. No guarding or rebound. No evidence of tenderness throughout. MS/ Extremity: Pulses equal, no cyanosis. Neurovascular intact. Full, normal range of motion. 17:43 Head/face: Noted is abrasion(s), that are mild, of the nose and face, a laceration(s), that is linear, 6 cm(s), 17:43 Skin: injury, abrasion(s), small abrasion noted, of the face, laceration(s), the wound is approximately 6 cm(s), of the forehead, Vital Signs: 15:45 BP 118 / 71; Pulse 111; Resp 16; Temp 97; Pulse Ox 99% on R/A; ko1 16:26 BP 114 / 62; Pulse 52; Resp 16; Pulse Ox 99% ; ko1 18:17 BP 118 / 66; Pulse 58; Resp 16; Pulse Ox 99% ; ko1 [place] Coma Score: 15:45 Eye Response: spontaneous(4). Motor Response: obeys commands(6). Verbal Response: ko1 oriented(5). Total: 15. Trauma Score (Adult): 15:45 Eye Response: spontaneous(1); Verbal Response: oriented(1); Motor Response: obeys ko1 commands(2); Systolic BP: > 89 mm Hg(4); Respiratory Rate: 10 to 29 per min(4); Rubens Score: 15; Trauma Score: 12 Laceration: 17:40 Wound Repair of 6cm ( 2.4in ) subcutaneous laceration to forehead. Distal ms3 neuro/vascular/tendon intact. Anesthesia: Local anesthetic administered with 3 mls of 1% lidocaine w/ Epi. Wound prep: Simple cleansing by me. Skin closed with 5 5-0 Prolene using simple sutures and sterile technique. Dressed with Bacitracin. Patient tolerated well. MDM: 15:54 Medical Screening Exam initiated ms3 17:40 Differential diagnosis: abrasion, closed head injury, contusion. Data reviewed: vital ms3 signs, nurses notes, lab test result(s), radiologic studies, and as a result, I will discharge patient. I considered the following discharge prescriptions or medication management in the emergency department Medications were administered in the Emergency Department. See MAR. Historians other than the Patient: EMS: [facility]. Counseling: I had a detailed discussion with the patient and/or guardian regarding the historical points, exam findings, and any diagnostic results supporting the discharge/admit diagnosis, lab results, radiology results, the need for outpatient follow up, to return to the emergency department if symptoms worsen or persist or if there are any questions or concerns that arise at home. Special discussion: I discussed with the patient/guardian in detail that at this point there is no indication for admission to the hospital. It is understood, however, that if the symptoms persist or worsen the patient needs to return immediately for re-evaluation. ED course: Patient's forehead laceration sutured without complication. Patient understands and agrees with plan to follow-up with primary care physician in 5 to 7 days for suture removal. All questions were answered. Return precautions discussed include worsening symptoms, or any other concerns. 01/15 15:53 Order name: CBC with Diff; Complete Time: 17:40 ms3 01/15 15:52 Order name: CT Head C Spine; Complete Time: 16:35 ms3 01/15 15:53 Order name: Labs collected and sent; Complete Time: 16:42 ms3 Administered Medications: 17:30 Drug: Bacitracin Topical Ointment (500 unit/g) 1 application Topical once Route: ko1 Topical; Site: affected area; 18:00 Follow up: Response: No adverse reaction ko1 17:31 Drug: Boostrix Tdap IM 0.5 ml IM once; as a single dose Route: IM; Site: right deltoid; ko1 18:01 Follow up: Response: No adverse reaction ko1 Disposition Summary: 01/16/24 17:29 Discharge Ordered Notes: Location: Home ms3 Condition: Stable ms3 Diagnosis - Fall on same level, unspecified ms3 - Forehead laceration ms3 Followup: ms3 - With: Roderick Barnard DO - When: 2 - 3 days - Reason: Re-evaluation by your physician Discharge Instructions: - Discharge Summary Sheet ms3 - Facial Laceration, [id number] ms3 Forms: - Medication Reconciliation Form ms3 - Antibiotic Education ms3 - Prescription Opioid Use ms3 - Patient Portal Instructions ms3 - Leadership Thank You Letter ms3 Signatures: Dispatcher [employer] EDMS Rosemary Roth Marcus, DO DO ms3 Twyla Darling, RN RN ko1 Corrections: (The following items were deleted from the chart) 15:53 15:53 Head C Spine MPR Wo Con+CT.RAD.BRZ ordered. EDMS EDMS 15:53 15:53 BASIC METABOLIC PANEL+C.LAB.BRZ ordered. EDMS EDMS 15:53 15:53 CBC+H.LAB.BRZ ordered. EDMS EDMS 15:53 15:53 TYPE AND SCREEN+BB.LAB.BRZ ordered. EDMS EDMS 18:17 17:00 Labs - recollect needed ordered. bd ko1
[2024-01-16 22:02] VITALS: TEMP 97; O2SAT 99
[2024-01-16 22:04] VITALS: BP 118/66
== END 2024-01-16 18:19 | disposition home or self-care (01) ==
LOC: ER 15:22
DX: S01.81XA Laceration without foreign body of other part of head, initial encounter (principal); W18.30XA Fall on same level, unspecified, initial encounter; I50.9 Heart failure, unspecified; J44.9 Chronic obstructive pulmonary disease, unspecified; Z86.73 Personal history of transient ischemic attack (TIA), and cerebral infarction without residual deficits
CPT/HCPCS: 12002; 36415; 70450; 72125; 85025; 96372; 99284

== ENCOUNTER 2024-05-12 14:06 | Observation (INO) | payer OTHER ==
--- OUTSIDE RECORDS SUMMARY | 2024-05-12 14:09 | XMS REPORT | Clinical Summary ---
Author Name Unknown Organization [facility] Address [address] [place] [address] Care Team Providers Care Special Education Classroom Aide Name Role Phone Ray Veliz MD Unavailable [phone] Dru Smith MD Primary Care Provider [phone] Allergies Active Allergy Reactions Criticality Noted Date Comments Povidone-Iodine Rash Low 09/16/2020 Medications albuterol (VENTOLIN HFA,PROAIR HFA) 90 mcg/puff inhaler Inhale 1-2 puffs by mouth every 6 (six) hours as needed for wheezing or shortness of breath. 0 Active atorvastatin (LIPITOR) 80 mg tablet TAKE 1 TABLET BY MOUTH DAILY AT BEDTIME 1 Active clopidogrel (PLAVIX) 75 mg tablet TAKE 1 TABLET BY MOUTH DAILY 1 Active levocetirizine (XYZAL) 5 MG tablet Take 5 mg by mouth every evening. 0 Active levothyroxine (SYNTHROID, LEVOTHROID) 25 mcg tablet TAKE 1 TABLET BY MOUTH DAILY 1 Active Tradjenta 5 mg tab Take 5 mg by mouth daily. 1 Active montelukast (SINGULAIR) 10 mg tablet TAKE 1 TABLET BY MOUTH DAILY 1 Active pantoprazole (PROTONIX) 40 mg EC tablet Take 40 mg by mouth daily with breakfast. 0 Active potassium chloride (MICRO-K) 10 mEq CR capsule Take 10 mEq by mouth daily. Hold for serum potassium greater than 4.5 mEq/L 1 Active rOPINIRole (REQUIP) 1 mg tablet Take 1 mg by mouth 2 (two) times a day as needed (restless legs). 1 Active traMADol (ULTRAM) 50 mg tablet TAKE 1 TABLET BY MOUTH THREE TIMES DAILY NEEDED FOR PAIN 1 Active senna-docusate (sennosides-doc usate sodium) 8.6 mg-50 mg tablet Take 1 tablet by mouth twice daily. Hold for loose stools. Active sodium chloride-sodium bicarbonate (SALT AND SODA) mouthwashIndica tions:Diffuse high grade B-cell lymphoma Swish and spit 10 mL every 6 (six) hours. Use 2 teaspoonfuls and dissolve in 1 quart (960 mL) of warm water. To prevent mouth sores 1 Active ondansetron (Zofran) 8 mg tabletIndicatio ns:Diffuse high grade B-cell lymphoma Take 1 tablet (8 mg) by mouth every 8 (eight) hours as needed for nausea or vomiting (first choice). 30 tablet 2 09/23/2020 4:50 PM CDT 1 Active prochlorperazin e (Compazine) 5 mg tabletIndicatio ns:Diffuse high grade B-cell lymphoma Take 1 tablet (5 mg) by mouth every 6 (six) hours as needed for nausea or vomiting. 60 tablet 2 09/23/2020 4:50 PM CDT 1 Active valACYclovir (VALTREX) 500 mg tabletIndicatio ns:Diffuse high grade B-cell lymphoma Take 1 tablet (500 mg) by mouth daily. To prevent viral infections. 30 tablet 5 09/23/2020 4:50 PM CDT 1 Active apixaban (ELIQUIS) 5 mg tabletIndicatio ns:Diffuse high grade B-cell lymphoma Take 1 tablet (5 mg) by mouth every 12 (twelve) hours. 1 Active ipratropium-alb uterol (DUO-NEB) 0.5 mg-2.5 mg/3 mL nebulizer solutionIndicat ions:Acute respiratory failure with hypoxia Inhale 1 vial (3 mL) by nebulization every 6 (six) hours. 1 Active metoprolol tartrate (LOPRESSOR) 25 mg tabletIndicatio ns:Diffuse high grade B-cell lymphoma Take 1 tablet (25 mg) by mouth every 12 (twelve) hours. Hold for systolic blood pressure less than 110 mmHg or heart rate less than 60 beats per minute. 1 Active torsemide (DEMADEX) 20 mg tabletIndicatio ns:Diffuse high grade B-cell lymphoma Take 1 tablet (20 mg) by mouth daily. Hold for systolic blood pressure less than 110 mmHg. 1 Active entecavir (BARACLUDE) 0.5 mg tabletIndicatio ns:Hepatitis B carrier Take 1 tablet (0.5 mg) by mouth every 72 hours. To prevent viral infection 10 tablet 2 11/14/2020 9:56 AM CDT 1 Active Active Problems Problem Noted Date Diagnosed Date Paroxysmal atrial fibrillation 03/16/2021 Assessment & Plan (03/16/2021 1:56 PM EMERGENCY VETERINARIAN): Patient was seen by inpatient ground crew linesman in September 2020 for atrial fibrillation with [...] has established a follow-up with his local ground crew linesman in March for further management. 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 Not on file Not on file Not on file Obstetrics History Plan of Treatment Health Maintenance Due Date Last Done Comments Pneumococcal Vaccine: 50+ Years (2 of 2 - PPSV23) 08/201706/30/2016 COVID-19 Vaccine (2023- season) 2023 Influenza Vaccine (#1) 2023 Medical Devices Implanted Type Area Fashion Marketer Device Identifier Shelf Expiration Date Model / Serial / Lot Metalware Metalware Right: Arm Description:pt sts he has a metal ryan in r arm Stent Stent Heart Insurance [address] [place] [address] [employer] MEDICARE PPO [employer] MEDICARE PPO Advance Directives Documents on File Type Date Recorded 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 PCP - General Lymphoma and Myeloma 09/16/20
[2024-05-12] MEDS ORDERED: TDAP (DIPHTH,PERTUSS(ACELL),TET VAC) 0.5 ML VIAL IMVAC ONE (14:35)
--- NOTE | 2024-05-12 15:03 | RAD REPORT ---
EXAMINATION: CT HEAD WITHOUT CONTRAST CT CERVICAL SPINE WITHOUT CONTRAST CLINICAL INDICATION: Head and neck injury status post fall. Head and neck pain TECHNIQUE: Axial CT images from the skull base to the vertex without intravenous contrast. Axial CT i mages through the cervical spine were obtained without intravenous contrast. Sagittal and coronal reformatted images were created from the data set. Coronal and sagittal reformatted images were creat ed from the data set. One or more of the following dose reduction techniques were used: Automated exposure control, adjustment of the mA and/or kV according to patient size, and/or iterative reconstr uction. Unless otherwise specified, incidental findings do not require dedicated imaging follow-up. [id number]. Comparison: December 2023 FINDINGS: Right scalp laceration An intracranial bleed is not seen. Ventricles are normal in caliber. No significant hypodensity within the brain No extra-axial fluid collection. No fluid within the sinuses/mastoids No fracture or dislocation is seen involving the cervical spine. Mild posterior subluxation C2 on C3. Mild anterior subluxation C3 on C4. Mild posterior subluxation C 6 on C7. Spondylosis cervical spine results in mild to moderate central spinal stenosis.. Congenital fusion C2 and C3 IMPRESSION: No acute intracranial abnormality noted A cervical fracture is not seen. 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
[2024-05-12 15:09] LABS: Sqamous Epithelial <5 /HPF (None Seen); Urine Bacteria None Seen /HPF (<20); Urine Bilirubin NEGATIVE (Negative); Urine Blood Negative (Negative); Urine Clarity Clear (Clear); Urine Color Light-Yellow (Yellow); Urine Crystals Unidentified Few /HPF (None Seen); Urine Culture Reflex Order NOT NEEDED; Urine Glucose NEGATIVE (Negative); Urine Ketones NEGATIVE (Negative); Urine Micro Reflex YN NO BILL MICROSCOPIC; Urine Mucus Slight /HPF (None Seen); Urine Nitrite NEGATIVE (Negative); Urine Protein NEGATIVE (Negative); Urine RBC <5 /HPF (None Seen); Urine Urobilinogen Normal (Normal); Urine WBC None Seen /HPF (<5); Urine Yeast (Budding) Trace /HPF (None Seen)
[2024-05-12 15:36] LABS: Absolute Eosinophils 0.2 K/uL (0-0.5); Absolute Monocytes 0.8 K/uL (0.1-1.3); Absolute Neutrophil 2.9 K/uL (1.8-8.0); Basophils % 0.8 % (0-1.3); Eosinophils % 3.5 % (0-4.4); Hematocrit 34.2 % (39.6-49.0); Hemoglobin 11.3 g/dL (13.6-17.9); Lymphocytes % 20.9 % (15.3-44.8); MCH 28.4 pg (27.0-35.0); MCV 86.2 fL (80-100); MPV 7.4 fL (7.6-11.3); Monocytes % 15.9 % (3.3-12.3); Neutrophils % 58.9 % (41.7-73.7); Nucleated Red Blood Cells % 0.1 % (0-0); Platelets 102 thou/uL (152-406); RBC Red Blood Cell Count 3.97 M/uL (4.33-5.43); Red Cell Distribution Width 16.5 % (12.1-15.2)
[2024-05-12 15:45] LABS: PT Prothrombin Time 12.8 SECONDS (9.4-12.5); PTT, Activated Partial Thromb 36.7 SECONDS (24.3-36.9); Protime INR 1.22
[2024-05-12 16:01] LABS: Anion Gap 7.3 mEq/L (5.0-15.0); Potassium 4.3 mEq/L (3.5-5.1); Thyroid Stimulating Hormone 2.17 uIU/mL (0.358-3.740)
--- NOTE | 2024-05-12 16:17 | RAD REPORT ---
Procedure: Chest Single View HISTORY: Cough COMPARISON: 2023 FINDINGS: The lungs appear clear of acute infiltrate. Mild bibasilar atelectasis or scarring unchanged No significant pleural effusion noted. The heart is moderately enlarged. Post surgical changes involve the chest IMPRESSION: No acute abnormality is displayed.
--- NOTE | 2024-05-12 16:28 | EDPHYS ---
Physician Documentation [facility] Name: Valerio Berg Age: 73 yrs Sex: Male : 1950 Arrival Date: 05/12/2024 Time: 14:06 Bed 13 Private MD: ED Physician Marcelino Mukherjee HPI: 05/12 14:36 This 73 yrs old Black Male presents to ER via EMS with complaints of Fall Injury. ec2 14:36 Patient arrives today for evaluation after a ground-level fall. Patient reports that he ec2 had tripped and fell. No LOC, reports he is on a blood thinner however unsure which. Reports some general weakness, no vomiting, no diarrhea. Denies urinary complaints.. Historical: - Allergies: 14:13 Betadine; ko1 14:13 Povidone-Iodine; ko1 - Home Meds: 14:13 Unable to obtain [Active]; ko1 - PMHx: 14:13 Borderline Diabetes; Congestive heart failure; CVA; COPD; Hypothyroidism; Myocardial ko1 infarction; - PSHx: 14:13 Unable to Obtain; ko1 - Immunization history:: Adult Immunizations unknown. - Infectious Disease History:: Denies. - Social history:: Smoking status: unknown. ROS: 14:37 Constitutional: as per hpi ec2 Exam: 14:37 Constitutional: GEN: NAD Head: atraumatic Eyes: EOMI Ears: External ears are ec2 normal. CV: regular rate , Marked lower extremity edema. LUNGS: no respiratory distress ABD: non-distended SKIN: 3cm wound to the r forehead MSK: no evidence of trauma Vital Signs: 14:10 BP 121 / 75; Pulse 89; Resp 15; Temp 97; Pulse Ox 97% on R/A; ko1 15:44 BP 132 / 88; Pulse 74; Resp 19; Pulse Ox 95% on R/A; ko1 17:33 BP 140 / 75; Pulse 68; Resp 14; Pulse Ox 97% on R/A; ko1 Laceration: 14:37 Wound Repair of 3cm ( 1.2in ) subcutaneous laceration to face. Distal ec2 neuro/vascular/tendon intact. Skin closed with 4 1-0 Mohamud using staple gun. Patient tolerated well. MDM: 14:19 Medical Screening Exam initiated ec2 14:38 Data reviewed: vital signs, nurses notes. ED course: Patient arrives today for ec2 evaluation after a ground-level fall. Examination yields skin findings as above. I repaired laceration without issue. Will obtain CT scan of the head and C-spine as well as basic lab work. Differential diagnosis considered include laceration, intracranial brain bleed, C-spine fracture, anemia, electrolyte disturbances.. 16:10 ED course: CBC reassuring. Metabolic profile shows renal dysfunction with a creatinine ec2 1.78 and GFR 39. Urine is noninfectious. BNP elevated at 9300. CT scan of the head and C-spine show no acute traumatic pathology.. 16:16 ED course: Chest x-ray independently reviewed and interpreted by me, shows borderline ec2 cardiomegaly, minimal vascular congestion.. 16:27 ED course: Patient with marked lower extremity edema, will admit the patient for ec2 diuresis. Discussed with hospitalist, pending admission.. 16:30 ED course: Mohamud placed, needs to have mohamud removed in 7 to 10 days.. ec2 05/12 14:25 Order name: CBC with Diff; Complete Time: 16:10 ec2 05/12 14:25 Order name: BMP; Complete Time: 16:10 ec2 05/12 14:25 Order name: UAM; Complete Time: 16:10 ec2 05/12 14:25 Order name: TSH; Complete Time: 16:10 ec2 05/12 14:25 Order name: T4 Free; Complete Time: 16:10 ec2 05/12 14:25 Order name: PT-INR; Complete Time: 16:10 ec2 05/12 14:25 Order name: Ptt, Activated; Complete Time: 16:10 ec2 05/12 15:43 Order name: NT PRO-BNP; Complete Time: 16:10 EDMS 05/12 17:14 Order name: Urinalysis w/ reflexes EDMS 05/12 14:25 Order name: CT Head C Spine; Complete Time: 16:10 ec2 05/12 15:32 Order name: CXR XRAY; Complete Time: 16:19 ec2 05/12 14:25 Order name: EKG - Nurse/Tech; Complete Time: 15:14 ec2 05/12 14:25 Order name: IV; Complete Time: 15:30 ec2 Administered Medications: 14:41 Drug: Boostrix Tdap IM 0.5 ml IM once; as a single dose Route: IM; Site: right deltoid; ko1 15:11 Follow up: Response: (VIS) Vaccine information sheet provided today. Questions and/or ko1 concerns addressed. VIS edition date: Oct 30, 2020.; No adverse reaction 16:41 Drug: Furosemide IVP 40 mg IVP once; give over 2 minutes Route: IVP; Site: left ko1 antecubital; 16:56 Follow up: Response: No adverse reaction ko1 Disposition Summary: 05/12/24 16:28 Hospitalization Ordered Notes: Hospitalization Status: Inpatient Admission ec2 Provider: Anthony Duran ec2 Condition: Stable ec2 Problem: an ongoing problem ec2 Symptoms: are unchanged ec2 Bed/Room Type: Standard ec2 Location: Telemetry/MedSurg (Inpatient)(05/13/24 12:05) bd Room Assignment: [facility](05/13/24 12:05) bd Diagnosis - Volume Overload ec2 Forms: - Medication Reconciliation Form ec2 - SBAR form ec2 - Leadership Thank You Letter ec2 Signatures: Dispatcher [employer] EDMS Rosemary Roth Vanessa, RN RN vc1 Twyla Darling RN RN ko1 Marcelino Mukherjee MD MD ec2 Corrections: (The following items were deleted from the chart) 14:26 14:25 CBC+H.LAB.BRZ ordered. EDMS EDMS 14:26 14:26 BASIC METABOLIC PANEL+C.LAB.BRZ ordered. EDMS EDMS 14:26 14:26 Urinalysis W/Microscopic+U.LAB.BRZ ordered. EDMS EDMS 14:26 14:26 THYROID STIMULAT HORMONE+C.LAB.BRZ ordered. EDMS EDMS 14:26 14:26 T4 FREE+C.LAB.BRZ ordered. EDMS EDMS 14:26 14:26 PROTIME (+INR)+COAG.LAB.BRZ ordered. EDMS EDMS 14:26 14:26 PTT, ACTIVATED+COAG.LAB.BRZ ordered. EDMS EDMS 15:43 15:32 PROBNP+C.LAB.BRZ ordered. EDMS EDMS 16:16 14:37 Constitutional: GEN: NAD Head: atraumatic Eyes: EOMI Ears: External ears are ec2 normal. CV: regular rate LUNGS: no respiratory distress ABD: non-distended SKIN: 3cm wound to the r forehead MSK: no evidence of trauma ec2 16:19 16:16 ED course: Chest x-ray independently reviewed and interpreted by me, shows ec2 cardiomegaly, vascular congestion.. ec2 19:21 14:25 Page ordered. ec2 al5 19:54 16:28 Telemetry/MedSurg (Inpatient) ec2 vc1 19:54 16:28 ec2 vc1 05/13 12:05 02 19:54 [facility] ER HOLD vc1 bd 05/13 12:05 0216 19:54 ERHOLD- vc1 bd
--- NOTE | 2024-05-12 16:28 | ER ---
Nurse's Notes [facility] Name: Valerio Berg Age: 73 yrs Sex: Male : 1950 Arrival Date: 05/12/2024 Time: 14:06 Bed 13 Private MD: Diagnosis: Volume Overload Presentation: 05/12 14:10 Chief complaint: EMS states: patient fell in parking lot, sustained a laceration to ko1 forehead, no LOC, he is on blood thinners. Coronavirus screen: At this time, the client does not indicate any symptoms associated with coronavirus-19. Ebola Screen: No symptoms or risks identified at this time. Initial Sepsis Screen: Does the patient meet any 2 criteria? No. Patient's initial sepsis screen is negative. Does the patient have a suspected source of infection? No. Patient's initial sepsis screen is negative. Risk Assessment: Do you want to hurt yourself or someone else? Patient reports no desire to harm self or others. Onset of symptoms was May 12, 2024. Care prior to arrival: Bleeding of injury controlled. Injury dressed. 14:10 Method Of Arrival: EMS: [facility] ko1 14:10 Acuity: ADRIÁN 2 ko1 Triage Assessment: 14:13 General: Appears ill, Behavior is calm, cooperative. Pain: Complains of pain in ko1 forehead. Historical: - Allergies: 14:13 Betadine; ko1 14:13 Povidone-Iodine; ko1 - Home Meds: 14:13 Unable to obtain [Active]; ko1 - PMHx: 14:13 Borderline Diabetes; Congestive heart failure; CVA; COPD; Hypothyroidism; Myocardial ko1 infarction; - PSHx: 14:13 Unable to Obtain; ko1 - Immunization history:: Adult Immunizations unknown. - Infectious Disease History:: Denies. - Social history:: Smoking status: unknown. Screenin:15 [facility] ED Fall Risk Assessment (Adult) History of falling in the last 3 months, ko1 including since admission Yes- single mechanical fall (1 pt) Confusion or Disorientation No (0 pts) Intoxicated or Sedated No (0 pts) Impaired Gait No (0 pts) Mobility Assist Device Used No (0 pt) Altered Elimination No (0 pt) Score/Fall Risk Level 0 - 2 = Low Risk Oriented to surroundings, Maintained a safe environment, Educated pt \T\ family on fall prevention, incl call for assistance when getting out of bed, Assessed \T\ reinforced patient's understanding of fall precautions, Hourly rounding (assess needs \T\ fall precautionary measures) done. Abuse screen: Denies threats or abuse. Denies injuries from another. Nutritional screening: No deficits noted. Tuberculosis screening: No symptoms or risk factors identified. Assessment: 14:15 Neuro: Level of Consciousness is obeys commands, drowsy but awakens and conversates. ko1 Cardiovascular: JVD is present Patient's skin is warm and dry. Respiratory: Reports cough that is productive. GI: No deficits noted. No signs and/or symptoms were reported involving the gastrointestinal system. : No deficits noted. No signs and/or symptoms were reported regarding the genitourinary system. EENT: No deficits noted. No signs and/or symptoms were reported regarding the EENT system. Derm: No deficits noted. Musculoskeletal: Swelling present in BLE. Injury Description: Laceration sustained to forehead is clean, bleeding profusely, was sustained less than 30 minutes ago. is bleeding profusely at this time. A dressing was applied. Vital Signs: 14:10 BP 121 / 75; Pulse 89; Resp 15; Temp 97; Pulse Ox 97% on R/A; ko1 15:44 BP 132 / 88; Pulse 74; Resp 19; Pulse Ox 95% on R/A; ko1 17:33 BP 140 / 75; Pulse 68; Resp 14; Pulse Ox 97% on R/A; ko1 ED Course: 14:09 Patient arrived in ED. ko1 14:10 Twyla Darling, RN is Primary Nurse. ko1 14:13 Triage completed. ko1 14:13 Arm band placed on right wrist. Patient placed in an exam room, on a stretcher, on ko1 pulse oximetry, Patient notified of wait time. 14:15 Patient has correct armband on for positive identification. Allergy band placed. Fall ko1 risk band placed. Placed in gown. Bed in low position. Call light in reach. Side rails up X2. Provided Education on: labs. Client placed on continuous cardiac and pulse oximetry monitoring. NIBP monitoring applied. manager wind on. Door closed. Noise minimized. Lights dimmed. Warm blanket given. Pillow given. Ice pack to injury. Assisted with urinal. 14:15 Assist provider with laceration repair on forehead using kylie. Set up tray. ko1 Performed by Marcelino Mukherjee MD Dressed with band aid, Neosporin, Patient tolerated well. 14:18 Marcelino Mukherjee MD is Attending Physician. ec2 14:52 CT Head C Spine In Process Unspecified. EDMS 14:59 UAM Sent. ko1 15:14 EKG done, by ED staff, reviewed by Marcelino Mukherjee MD. ko1 15:30 PT-INR Sent. ko1 15:30 Ptt, Activated Sent. ko1 15:30 Initial lab(s) drawn, by me, sent to lab. Inserted saline lock: 20 gauge in left hb antecubital area, using aseptic technique. ,using aseptic technique. US GUIDED Blood collected. Flushed with 10 mL NS. 15:31 T4 Free Sent. ko1 15:31 TSH Sent. ko1 15:31 BMP Sent. ko1 15:31 CBC with Diff Sent. ko1 16:00 CXR XRAY In Process Unspecified. EDMS 16:28 Anthony Duran is Hospitalizing Provider. ec2 17:33 Patient admitted, IV remains in place. ko1 17:36 Urinalysis w/ reflexes Sent. ko1 17:40 Repositioned patient. ko1 Administered Medications: 14:41 Drug: Boostrix Tdap IM 0.5 ml IM once; as a single dose Route: IM; Site: right deltoid; ko1 15:11 Follow up: Response: (VIS) Vaccine information sheet provided today. Questions and/or ko1 concerns addressed. VIS edition date: Oct 30, 2020.; No adverse reaction 16:41 Drug: Furosemide IVP 40 mg IVP once; give over 2 minutes Route: IVP; Site: left ko1 antecubital; 16:56 Follow up: Response: No adverse reaction ko1 Medication: 15:44 Vaccine Information Statement (VIS) provided today. Questions and/or concerns ko1 addressed. VIS edition date: 2016. Output: 15:44 Urine: 450ml (Voided); Total: 450ml. ko1 17:40 Urine: 500ml (Voided); Total: 950ml. ko1 Outcome: 16:28 Decision to Hospitalize by Provider. ec2 17:33 Admitted to ER Hold. Please see [employer] for further documentation. ko1 17:33 Condition: stable 17:33 Instructed on the need for admit, 05/13 13:44 Patient left the ED. ll1 Signatures: Dispatcher [employer] Hoa Alejandra, RN Sin Grossman RN RN hina1 Twyla Darling RN RN ko1 Marcelino Mukherjee MD MD ec2 Corrections: (The following items were deleted from the chart) 05/12 15:43 15:35 PROBNP+C.LAB.BRZ drawn and sent. domenica PHAM
[2024-05-12] MEDS ORDERED: FUROSEMIDE 40 MG/4 ML VIAL ONE (16:36)
[2024-05-12] MEDS ORDERED: ZOLPIDEM TARTRATE 5 MG TABLET PO PRN (17:07)
[2024-05-12] MEDS ORDERED: ACETAMINOPHEN 500 MG TAB PO PRN (17:07)
[2024-05-12] MEDS ORDERED: ACETAMINOPHEN 325 MG TABLET PO PRN (17:07)
[2024-05-12] MEDS ORDERED: ALBUTEROL 2.5 MG/3 ML NEB SOL NEB PRN (17:07)
--- NOTE | 2024-05-12 17:21 | P.HP ---
Certification for Inpatient Patient admitted to: Inpatient With expected LOS: >2 Midnights Practitioner: I am a practitioner with admitting privileges, knowledge of patient current condition, hospital course, and medical plan of care. Services: Services provided to patient in accordance with Admission requirements found in Title 42 Section 412.3 of the Code of Federal Regulations Patient History Date of Service: 05/12/24 Reason for admission: S/p mechanical fall, CKD with CHF, COPD History of Present Illness: Mr. Berg is a 73-year-old gentleman with multiple chronic comorbidities. He presented to the emergency department today after a fall. He states that he lost his balance and fell. He denies loss of consciousness, but states he had to lay on the ground for about 20 to 30 minutes before he could get help to get back to his seat. He appears chronically ill but is alert and oriented. He had a CT of his head and C-spine in the emergency department and there were no intracranial abnormalities or C-spine fractures. He did have a wound (3cm) that was repaired in the emergency department and covered with a bandage. He was noted to be in A-fib with frequent unifocal PVCs. His lower extremities are very edematous and his proBNP was elevated at 9331. He denies shortness of breath or any large changes from baseline. He does live alone and has a caregiver. The hospitalist program was asked to admit for management of chronic CKD status post fall with congestive failure with fluid overload exam findings. 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 Nonalcoholic fatty liver disease, hepatitis C, which was treated in the past by Dr. Fregoso, constipation, chronic kidney disease, benign prostatic hypertrophy, osteoarthritis at multiple sites, lumbar spinal stenosis,and hypokalemia. Last ECHO 12/26/23 COMMENTS: 1. MODERATE GLOBAL HYPOKINESIS, EJECTION FRACTION 35-40%, MODERATELY REDUCED LEFT VENTRICULAR SYSTOLIC FUNCTION 2. SEVERE RIGHT AND LEFT ATRIAL ENLARGEMENT 3. SEVERE TRICUSPID REGURGITATION 4. ELEVATED FILLING PRESSURE (RIGHT ATRIUM GREATER THAN 20 mmHg) Allergies povidone-iodine [From Betadine] Allergy (Mild, Verified 07/28/23 22:44) Rash Home medications list reviewed: Yes Home Medications: Atorvastatin Calcium [Lipitor] 1 tab PO BEDTIME 12/05/21 Levothyroxine Sodium 1 tab PO DAILY 12/05/21 Linagliptin [Tradjenta] 1 tab PO DAILY 12/05/21 Montelukast [Singulair*] 1 tab PO DAILY 12/05/21 Ropinirole HCl [Requip*] 1 tab PO BID 12/05/21 Valacyclovir HCl [Valtrex] 1 tab PO DAILY 12/05/21 Furosemide 1 tab PO BID 07/30/23 Aspirin [Aspirin EC 81 MG] 1 tab PO DAILY 12/23/23 - Past Medical/Surgical History Has patient received pneumonia vaccine in the past: Yes Diabetic: No -: DM -: COPD -: Hx ME -: Hx Diffuse Large B Cell Lymphoma (DLBCL) -: Hyperlipidemia -: HTN -: Hypothyroidism -: Osteoarthritis -: cva -: knee replacement Left -: open heart surgery -: left hip repLACEMENT -: METAL PLATED IN RIGHT ARM Psychosocial/ Personal History: 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 - Social History Smoking Status: Former smoker Alcohol use: No CD- Drugs: No Caffeine use: Yes Place of Residence: Home Review of Systems 10-point ROS is otherwise unremarkable General: Unremarkable Eyes: Unremarkable ENT: Unremarkable Respiratory: Unremarkable Cardiovascular: Unremarkable Gastrointestinal: Unremarkable Genitourinary: Unremarkable Musculoskeletal: As per HPI Integumentary: As per HPI Neurological: Other (lost balance) Lymphatics: Unremarkable Physical Examination - Physical Exam General: Alert, Oriented x3, Cooperative, Other (hx of CVA) Neck: Supple Respiratory: Clear to auscultation bilaterally Cardiovascular: Normal pulses, Regular rate/rhythm, Edema (significant but apparently chronic lower ext edema, wear long anna marie compressive stockings) Capillary refill: <2 Seconds Gastrointestinal: Soft and benign Musculoskeletal: Other (s/p CVA with some contractures) Integumentary: Other (hematoma at tip of toe to left foot) Neurological: Normal tone, Sensation intact, Normal affect Lymphatics: No axilla or inguinal lymphadenopathy Urinary: Other (voiding per urinal) External genitalia: Deferred Rectal: Deferred - Studies Laboratory Data (last 24 hrs) 05/12/24 05/12/24 05/12/24 15:25 15:25 15:25 WBC 4.90 Hgb 11.3 L Hct 34.2 L Plt Count 102 L PT 12.8 H INR 1.22 APTT 36.7 Sodium 139 Potassium 4.3 BUN 45 H Creatinine 1.78 H Glucose 107 H Assessment and Plan - Plan Impression: 1.Closed head injury s/p fall 2. Congestive heart failure. 3. Thrombocytopenia. (102) 4. Chronic kidney disease. (creat/GFR 1.78/39) 5. Type 2 diabetes mellitus. 6. Hypothyroidism. 7. chronic obstructive pulmonary disease. 8. Hypertension. 9. Hyperlipidemia. 10. Coronary artery disease. 11. Paroxysmal atrial fibrillation. (05/12/24 with unifocal PVCs) 12. Gastroesophageal reflux disease. Neuro checks Q4h, fall precautions Diuresis Lopressor 25mg po BID (last admission added to regimen - hold for HR <60 or SBP <100) Strict Is & Os Daily weight monitor and trend cbc, electrolytes Continue nebs/levothyroxine Continue asa/atorvastatin Continue Protonix Heart healthy diet fall precautions full code Discharge Plan: Home Plan to discharge in: 72 Hours - Advance Directives Does patient have a Living Will: No Does patient have a Durable POA for Healthcare: No
[2024-05-12] MEDS ORDERED: ALBUTEROL 2.5 MG/3 ML NEB SOL NEB SCH (18:00)
[2024-05-12 18:10] VITALS: BMI 28.7
[2024-05-12] MEDS ORDERED: HOME MED 1 EA UNK (Furosemide [Furosemide] 80 MG Tablet) PO SCH (21:00)
[2024-05-12] MEDS ORDERED: IPRATROPIUM BROM 0.5MG/2.5ML ONE (22:07)
[2024-05-12] MEDS ORDERED: FUROSEMIDE 40 MG TABLET ONE (22:15)
[2024-05-12] MEDS ORDERED: ATORVASTATIN 40 MG TAB ONE (22:15)
[2024-05-12] MEDS: MONTELUKAST 10 MG TAB ONE (23:15)
[2024-05-12] MEDS: FUROSEMIDE 40 MG TABLET PO SCH (23:49)
[2024-05-12] MEDS: MONTELUKAST 10 MG TAB PO SCH (23:49)
[2024-05-12] MEDS: ATORVASTATIN 40 MG TAB PO SCH (23:49)
[2024-05-12] MEDS: ROPINIROLE HCL 1 MG TAB PO SCH (23:49)
[2024-05-13] MEDS: HEPARIN 5000 UNIT/ML 1 ML VIAL SQ SCH (01:00)
[2024-05-13] MEDS ORDERED: IPRATROPIUM BROM 0.5MG/2.5ML ONE ×2 (01:24→08:46)
[2024-05-13] MEDS ORDERED: HEPARIN 5000 UNIT/ML 1 ML VIAL ONE ×2 (01:24→07:35)
[2024-05-13 03:49] LABS: Specific Gravity 1.008 (1.005-1.030); Urine Bilirubin NEGATIVE (Negative); Urine Blood Negative (Negative); Urine Clarity Clear (Clear); Urine Color Colorless (Yellow); Urine Glucose NEGATIVE (Negative); Urine Ketones NEGATIVE (Negative); Urine Microscopic Reflex YN NO UMIC; Urine Nitrite NEGATIVE (Negative); Urine Protein NEGATIVE (Negative); Urine Urobilinogen Normal (Normal)
[2024-05-13] MEDS ORDERED: PANTOPRAZOLE 40MG TABLET PO ONE (05:14)
[2024-05-13] MEDS: PANTOPRAZOLE 40MG TABLET PO SCH (05:54)
[2024-05-13] MEDS: LEVOTHYROXINE SOD 0.025 MG TAB PO SCH (05:54)
[2024-05-13] MEDS ORDERED: FUROSEMIDE 40 MG TABLET ONE (07:35)
[2024-05-13] MEDS ORDERED: ASPIRIN 81 MG CHEWABLE TABLET ONE (07:35)
[2024-05-13] MEDS ORDERED: METOPROLOL TAR 25 MG TAB ONE (07:35)
[2024-05-13] MEDS: IPRATROPIUM BROM 0.5MG/2.5ML NEB SCH (08:45)
[2024-05-13] MEDS: ALBUTEROL 2.5 MG/3 ML NEB SOL NEB SCH (08:45)
[2024-05-13] MEDS ORDERED: ALBUTEROL 2.5 MG/3 ML NEB SOL ONE (08:46)
[2024-05-13] MEDS: METOPROLOL TAR 25 MG TAB PO SCH (09:00)
[2024-05-13] MEDS: LINAGLIPTIN PO SCH (09:00)
[2024-05-13] MEDS: ASPIRIN EC 81 MG TAB PO SCH (09:00)
[2024-05-13] MEDS ORDERED: HOME MED 1 EA UNK (Linagliptin [Tradjenta] 5 MG Tablet) PO SCH (09:00)
[2024-05-13] MEDS: VALACYCLOVIR 500 MG TAB PO SCH (09:00)
[2024-05-13] MEDS: GUAIFENESIN/DM 5 ML UCUP PO PRN (20:34)
[2024-05-13] MEDS: IPRATROPIUM BROM 0.5MG/2.5ML ONE (21:09)
[2024-05-13] MEDS: ALBUTEROL 2.5 MG/3 ML NEB SOL ONE (21:09)
[2024-05-14] MEDS: ALBUTEROL 2.5 MG/3 ML NEB SOL ONE (00:21)
[2024-05-14] MEDS: IPRATROPIUM BROM 0.5MG/2.5ML ONE (00:21)
[2024-05-14 07:37] VITALS: BP 127/74
[2024-05-14 08:43] VITALS: TEMP 97.7
[2024-05-14 10:51] VITALS: O2SAT 96
--- NOTE | 2024-05-14 20:16 | PN ---
Date of Progress Note: 05/13/2024 Subjective: The patient was seen this morning for followup. He came into ER yesterday and was admit jigar to hospital after a fall and head injury. The patient says that as he was walking, he stumbled o ac something and lost balance and fell down, had head injury with a small laceration to the anterior scalp near the hairline area on the forehead, and had kylie applied in the emergency room. When I saw him, no new complaints or problems reported by him. Physical Examination: HEENT: Unremarkable except kylie present over laceration over anterior scalp near the hairline. N o active bleeding or discharge. Lungs: Clear to auscultation. Heart: Sounds normal. Abdomen: Soft. Bowel sounds normal. No guarding, rigidity, tenderness, distention. Extremities: Trace leg edema. Laboratory Data: Reviewed. CAT scan of the head was negative for any acute intracranial changes. Impression: 1. Head injury. 2. Scalp laceration. 3. Hypertension. 4. Chronic kidney disease. 5. Leg edema. Plan: We will go ahead and continue current medical management. We will have the patient ambulate t shamika and monitor him for any changes in his mental status. I will see him tomorrow for followup, pos sible discharge to go home tomorrow. I have advised the patient to use walker all the time. He has walker, but he is not using it. My instruction to him was to use walker indoor and outdoor all the time to reduce chances of fall and in jury. ANNA/MODL Voice ID: [id number] Report ID: [id number]
== END 2024-05-14 10:01 | disposition home or self-care (01) ==
LOC: ER 14:06 → ERHOLD 17:07 → 4TH 05-13 12:12
PROVIDERS: ADMIT Internal Medicine; ATTEND Internal Medicine
PROC: 0JQ13ZZ Repair Face Subcutaneous Tissue and Fascia, Percutaneous Approach (ICD-10-PCS; principal; 2024-05-12)
DX: I13.0 Hypertensive heart and chronic kidney disease with heart failure and stage 1 through stage 4 chronic kidney disease, or unspecified chronic kidney disease (principal); I50.9 Heart failure, unspecified; E87.70 Fluid overload, unspecified; S01.81XA Laceration without foreign body of other part of head, initial encounter; W01.0XXA Fall on same level from slipping, tripping and stumbling without subsequent striking against object, initial encounter; Y93.89 Activity, other specified; Y92.481 Parking lot as the place of occurrence of the external cause; D69.6 Thrombocytopenia, unspecified; E03.9 Hypothyroidism, unspecified; E11.22 Type 2 diabetes mellitus with diabetic chronic kidney disease; N18.9 Chronic kidney disease, unspecified; E78.5 Hyperlipidemia, unspecified; J44.9 Chronic obstructive pulmonary disease, unspecified; I25.10 Atherosclerotic heart disease of native coronary artery without angina pectoris; I48.11 Longstanding persistent atrial fibrillation; K21.9 Gastro-esophageal reflux disease without esophagitis; I25.2 Old myocardial infarction; K76.0 Fatty (change of) liver, not elsewhere classified; N40.1 Benign prostatic hyperplasia with lower urinary tract symptoms; M19.90 Unspecified osteoarthritis, unspecified site; M48.061 Spinal stenosis, lumbar region without neurogenic claudication; Z79.01 Long term (current) use of anticoagulants; Z23 Encounter for immunization; Z96.642 Presence of left artificial hip joint; Z96.652 Presence of left artificial knee joint; Z85.72 Personal history of non-Hodgkin lymphomas; Z87.891 Personal history of nicotine dependence
CPT/HCPCS: 85025; 81001; 80048; 36415; 85610; 82947; 85730; 84443; 81003; 84439; 83880; 70450; 72125; 71045; 96372; 96374; 99285; 12013; J1644 ×5; J1940; J7613 ×5; J7644 ×7; 93005; G0378

== ENCOUNTER 2024-05-22 17:56 | Emergency (ER) | payer OTHER ==
--- OUTSIDE RECORDS SUMMARY | 2024-05-22 17:59 | XMS REPORT | Clinical Summary ---
Author Name Unknown Organization [facility] Address [address] [place] [address] Care Team Providers Care Leather Goods Assembler Name Role Phone Ray Veliz MD Unavailable [phone] Dru Smith MD Primary Care Provider [phone] Allergies Active Allergy Reactions Criticality Noted Date [...] 03/16/2021 Assessment & Plan (03/16/2021 1:56 PM SENIOR FRONT END DEVELOPER): Patient was seen by inpatient fruit grader operator in September 2020 for atrial fibrillation with [...] has established a follow-up with his local fruit grader operator in March for further management. 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 Teacher Expl anation Advance Directives: Medical Power of Mexican Food Maker 11/02/2020 Medical Power of Att patrice * Full Code (Latest Code Status on File) Date Activated Date Inactivated Comments 10/07/2020 12:02 PM 11/14/2020 4:41 PM * Full Code Date Activated Date Inactivated Comments 09/17/2020 12:45 PM 09/23/2020 7:59 PM Care Teams Leather Goods Assembler Relationship Specialty Start Date End Date Ray Veliz MD [address] [place] [phone] [email or web address] PCP - External Referring Internal Medicine 09/03/20 Dru Smith MD [address] [place] [email or web address] PCP - General Lymphoma and Myeloma 09/16/20
--- NOTE | 2024-05-22 18:03 | EDPHYS ---
Physician Documentation [facility] Name: Valerio Berg Age: 73 yrs Sex: Male : 1950 Arrival Date: 05/22/2024 Time: 17:56 Bed IW5 Private MD: ED Physician Paul Hansen HPI: 05/22 18:03 This 73 yrs old Black Male presents to ER via Ambulatory with complaints of Staple kb Removal. 18:03 Pt is a 73 year old male who presents to have mohamud removed from forehead. Mohamud kb were placed 10 days ago. . Historical: - Allergies: 18:03 Betadine; db 18:03 Povidone-Iodine; db - PMHx: 18:03 Borderline Diabetes; Congestive heart failure; COPD; CVA; Hypothyroidism; Myocardial db infarction; - Immunization history:: Adult Immunizations unknown. - Infectious Disease History:: Denies. - Social history:: Smoking status: Patient denies any tobacco usage or history of. ROS: 18:02 Constitutional: As per HPI kb Exam: 18:02 Constitutional: This is a well developed, well nourished patient who is awake, alert, kb and in no acute distress. Head/Face: Normocephalic, atraumatic. ENT: Moist Mucous membranes Cardiovascular: Regular rate Respiratory: Respirations even and unlabored. No increased work of breathing. Talking in full sentences MS/ Extremity: Pulses equal, no cyanosis. Neurovascular intact. Full, normal range of motion. Neuro: Awake and alert, GCS 15, oriented to person, place, time, and situation. 18:02 Skin: Wound recheck: Staple laceration closure: the wound is healing well, the edges are well approximated, no evidence of dehiscence, no drainage, no erythema, no swelling, Vital Signs: 18:02 BP 100 / 51; Pulse 61; Resp 18; Temp 97.9; Pulse Ox 97% ; db Procedures: 18:03 Suture/Staple removal: Removed 4 mohamud, from forehead, site appears well healed, kb Patient tolerated well. MDM: 17:57 Medical Screening Exam initiated kb 18:02 Data reviewed: vital signs, nurses notes. Counseling: I had a detailed discussion with kb the patient and/or guardian regarding the historical points, exam findings, and any diagnostic results supporting the discharge/admit diagnosis, the need for outpatient follow up, a family practitioner, to return to the emergency department if symptoms worsen or persist or if there are any questions or concerns that arise at home. Administered Medications: No medications were administered Disposition: 19:18 Co-signature as Attending Physician, Paul Hansen MD I reviewed the patient's care rt provided by the Advanced Practice Provider and agree with the diagnosis and treatment plan. Disposition Summary: 05/22/24 18:02 Discharge Ordered Notes: Location: Home kb Condition: Stable kb Diagnosis - Encounter for removal of sutures - mohamud kb Followup: kb - With: Emergency Department - When: As needed - Reason: Worsening of condition Followup: kb - With: Private Physician - When: 2 - 3 days - Reason: Recheck today's complaints, Continuance of care, Re-evaluation by your physician Discharge Instructions: - Discharge Summary Sheet kb - Suture Removal, Care After kb Forms: - Medication Reconciliation Form kb - Antibiotic Education kb - Prescription Opioid Use kb - Patient Portal Instructions kb - Leadership Thank You Letter kb Signatures: Janiya Beltran FNP-C FNP-Lexi Katz, RN RN Paul Azul MD MD rt
--- NOTE | 2024-05-22 18:03 | ER ---
Nurse's Notes [facility] Name: Valerio Berg Age: 73 yrs Sex: Male : 1950 Arrival Date: 05/22/2024 Time: 17:56 Bed IW5 Private MD: Diagnosis: Encounter for removal of sutures-kylie Presentation: 05/22 18:02 Chief complaint: Patient states: STAPLE REMOVAL TO FOREHEAD. Coronavirus screen: Client db denies travel out of the [place] in the last 14 days. At this time, the client does not indicate any symptoms associated with coronavirus-19. Ebola Screen: Patient negative for fever greater than or equal to 101.5 degrees Fahrenheit, and additional compatible Ebola Virus Disease symptoms Patient denies exposure to infectious person. Patient denies travel to an Ebola-affected area in the 21 days before illness onset. No symptoms or risks identified at this time. Initial Sepsis Screen: Does the patient meet any 2 criteria? No. Patient's initial sepsis screen is negative. Does the patient have a suspected source of infection? No. Patient's initial sepsis screen is negative. Risk Assessment: Do you want to hurt yourself or someone else? Patient reports no desire to harm self or others. Onset of symptoms was May 22, 2024. 18:02 Method Of Arrival: Ambulatory db 18:02 Acuity: ADRIÁN 5 db Triage Assessment: 18:03 General: Appears in no apparent distress. comfortable, Behavior is calm, cooperative. db Pain: Denies pain. Historical: - Allergies: 18:03 Betadine; db 18:03 Povidone-Iodine; db - PMHx: 18:03 Borderline Diabetes; Congestive heart failure; COPD; CVA; Hypothyroidism; Myocardial db infarction; - Immunization history:: Adult Immunizations unknown. - Infectious Disease History:: Denies. - Social history:: Smoking status: Patient denies any tobacco usage or history of. Screenin:09 [facility] ED Fall Risk Assessment (Adult) History of falling in the last 3 months, db including since admission No falls in past 3 months (0 pts) Confusion or Disorientation No (0 pts) Intoxicated or Sedated No (0 pts) Impaired Gait Yes (1 pt) Mobility Assist Device Used Yes (1 pt) Altered Elimination No (0 pt) Score/Fall Risk Level 0 - 2 = Low Risk Oriented to surroundings, Maintained a safe environment. Abuse screen: Denies threats or abuse. Denies injuries from another. Nutritional screening: No deficits noted. Tuberculosis screening: No symptoms or risk factors identified. Assessment: 18:09 Reassessment: Patient appears in no apparent distress at this time. Patient is alert, db oriented x 3, equal unlabored respirations, skin warm/dry/pink. SEE TRIAGE FOR INITIAL. Vital Signs: 18:02 BP 100 / 51; Pulse 61; Resp 18; Temp 97.9; Pulse Ox 97% ; db ED Course: 17:57 Patient arrived in ED. mr 17:57 Jan[facility] Beltr[facility] F[facility]-C [facility]. kb 17:57 Paul Hansen MD is Attending Physician. kb 18:01 Removal of Removed kylie from forehead. db 18:03 Triage completed. db 18:03 Arm band placed on. db 18:09 No provider procedures requiring assistance completed. Patient did not have IV access db during this emergency room visit. 18:09 Patient has correct armband on for positive identification. Provided Education on: db DISCHARGE. Administered Medications: No medications were administered Medication: 18:09 VIS not applicable for this client. db Outcome: 18:02 Discharge ordered by MD. kb 18:09 Discharged to home via wheelchair, db 18:09 Condition: stable 18:09 Discharge instructions given to patient, Instructed on discharge instructions, 18:10 Patient left the ED. db Signatures: Janiya Beltran FNP-C FNP-Ckb Dominga Choudhary, Reg Reg Lexi Tucker, RN RN db
[2024-05-22 18:25] VITALS: BP 100/51; TEMP 97.9; O2SAT 97
== END 2024-05-22 18:10 | disposition home or self-care (01) ==
LOC: ER 17:56
DX: Z48.02 Encounter for removal of sutures (principal)
CPT/HCPCS: 99281; 99283

== ENCOUNTER 2024-10-29 17:36 | Inpatient (IN) | payer OTHER ==
[2024-10-29] MEDS: NA CHLORIDE 0.9% 1,000 ML ONE (18:36)
[2024-10-29] MEDS: NA CHLORIDE 0.9% 1,000 ML IV SCH (18:42)
[2024-10-29] MEDS: ALBUTEROL 2.5 MG/3 ML NEB SOL NEB SCH (19:21)
--- NOTE | 2024-10-29 19:57 | RAD REPORT ---
EXAMINATION: ONE VIEW CHEST XR CLINICAL INDICATION: Male, 74 years old.,new admit TECHNIQUE: Frontal chest projection is submitted. Examination is limited by patient positioning and t echnique. COMPARISON: 10/15/2024 FINDINGS: The lungs are well inflated, with stable mild bibasilar opacities more so on the left. No pneumothor ax or sizable effusion. Stable mild prominence of the cardiac silhouette. Sequelae of CABG. Mediastinal contours are otherwise unremarkable. IMPRESSION: No acute intrathoracic abnormalities. Stable findings as above.
[2024-10-29 20:46] LABS: Hematocrit 37.3 % (39.6-49.0); Hemoglobin 12.2 g/dL (13.6-17.9); MCH 27.7 pg (27.0-35.0); MCHC 32.6 g/dL (32.0-36.0); MCV 85.0 fL (80-100); MPV 8.0 fL (7.6-11.3); RBC Red Blood Cell Count 4.39 M/uL (4.33-5.43); White Blood Count 6.70 thou/uL (4.3-10.9)
[2024-10-29 20:52] VITALS: BMI 24.3
[2024-10-29 21:13] LABS: ALT/SGPT 17.0 U/L (16-61); AST/SGOT 19.0 U/L (15-37); Albumin 3.6 g/dL (3.4-5.0); Albumin/Globulin Ratio 0.9 (1.1-1.8); Alkaline Phosphatase 146.0 U/L (45-117); Anion Gap 11.4 mEq/L (5.0-15.0); BUN Blood Urea Nitrogen 56.0 mg/dL (7-18); Globulin 3.9 g/dL (2.3-3.5); Glucose Level 96.0 mg/dL (74-106); Magnesium 2.7 mg/dL (1.6-2.4); NT PRO-BNP 4207.0 pg/mL (<450); Potassium 4.4 mEq/L (3.5-5.1)
[2024-10-29 21:32] LABS: Troponin High Sensitivity 113.8 pg/mL (<58.9)
[2024-10-29] MEDS: ROPINIROLE HCL 1 MG TAB PO SCH (23:06)
[2024-10-29] MEDS: ATORVASTATIN 40 MG TAB PO SCH (23:07)
[2024-10-29] MEDS: TAMSULOSIN 0.4 MG SR CAP PO SCH (23:07)
[2024-10-29] MEDS: ENOXAPARIN 40 MG/0.4 ML SQ ONE (23:07)
[2024-10-30] MEDS: HYDROCODONE/APAP 5/325 MG TAB PO PRN (03:07)
--- NOTE | 2024-10-30 04:06 | HP ---
Date of Admission: 10/29/2024 Chief Complaint: Neck pain. History Of Present Illness: This is a 74-year-old male patient, who came into office today with complaints of neck pain that started about half hour before he came into the office and he walked into the office and requested to be seen and he was seen, but surprisingly his blood pressure was very low when we saw him at office. He denies any chest pain, shortness of breath. No paroxysmal nocturnal dyspnea or orthopnea. No nausea, vomiting, diarrhea. No bleeding. After he was evaluated at office, his blood pressure was verified with manual blood pressure machine and his blood pressure with manual machine was 64/44. So with this, decision was made to admit him to hospital directly for further evaluation and management of this problem. We really do not know what the patient takes at home as far as his home medications are concerned as he did not bring his medication bottles for least today and did not bring it last time when we saw him on 10/22/2024. In spite of multiple instructions for him to bring his medication bottles to office each time, he has not been doing it and we really do not know what he takes at home, but today he did admit to one of my office staff that he has been taking medications what he describes as blue pills, which I believe it is something like Viagra for erectile dysfunction and I have instructed him today that he should not take any medication that is not prescribed by me and if it does not appear on the medication list at the office, he should not be taking any such medications. Allergies: TO BETADINE CAUSING RASH. Medications: According to the office list, his medication list appears as below; albuterol inhaler 2 puffs 4 times a day as needed, Combivent inhaler 2 puffs 4 times a day, aspirin 81 mg daily, atorvastatin 40 mg daily at bedtime, escitalopram 5 mg daily, Trelegy Ellipta 1 puff daily and I am not sure whether he is taking Trelegy or Combivent as a maintenance inhaler, furosemide 80 mg 2 times a day, gabapentin 100 mg 2 times a day, levothyroxine 25 mcg daily, Tradjenta 5 mg daily in morning with breakfast, methocarbamol 500 mg 2 times a day, montelukast 10 mg daily, nystatin cream 2 times a day apply to rash area, pantoprazole 40 mg daily, potassium chloride 20 mEq takes half a tablet daily, ropinirole 1 mg 2 times a day, Entresto 24/26 mg 1 tablet 2 times a day, valacyclovir 500 mg daily. Review of Systems: Musculoskeletal: As mentioned above. Respiratory: Chronic cough. Cardiovascular: Chronic leg edema. All other systems reviewed and negative. 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 Fregoso, constipation, chronic kidney disease, benign prostatic hypertrophy, osteoarthritis at multiple sites, lumbar spinal stenosis, and hypokalemia, chronic systolic heart failure. Past Surgical History: Teeth extraction, coronary artery bypass surgery, surgery for right radius and ulna fracture, and hip and knee surgery. Family History: Mother had Alzheimer's disease, diabetes, and tuberculosis. Brother had stroke. Social History: Prior history of smoking, not at present time. Use of alcohol negative. He quit using alcohol in 2006. Physical Examination: Vital Signs: At office today, initial blood pressure with machine was 72/44 and repeat blood pressure with manual blood pressure machine was 64/44, pulse 67, temperature 97.6, respiratory rate 16. Weight 172.2 pounds, height 71 inches. General: Awake, alert, oriented, not in distress. HEENT: Head atraumatic, normocephalic. Conjunctivae nonerythematous. Sclerae white. Mouth, no thrush or edema noted. Ears/Nose, no mass, lesion, discharge noted. Neck: Supple. No JVD, lymph nodes, bruit, thyromegaly noted. Lungs: Bilateral good equal air entry. Clear to auscultation. No rhonchi. No rales. Heart: Normal heart sounds, no murmur or gallop. Abdomen: Soft, bowel sounds normal. No guarding, rigidity, tenderness, mass, hepatosplenomegaly, distention, or bruit noted. Extremities: Trace leg edema in both lower extremities. Skin: No rash, ulcer, cellulitis. Lymphatics: No lymph node enlargement in neck, supraclavicular, infraclavicular region. Neuro: No focal neurological deficit. Chest: Unremarkable. External Genitalia: Deferred. Rectal: Deferred. Laboratory Data: WBC 6.7, hemoglobin 12.2, platelets 100. Sodium 137, potassium 4.4, chloride 103, bicarb 27, BUN 56, creatinine 3.64, glucose 96. Hemoglobin A1c 6.4. Liver function test unremarkable. Troponin 113.8. ProBNP 4207. Chest x-ray shows no acute cardiopulmonary changes. EKG reviewed, no acute ST-T changes. Impression: 1. Hypotension. 2. Acute kidney injury. 3. Chronic kidney disease stage 3. 4. Hypothyroidism. 5. Type 2 diabetes mellitus. 6. COPD. 7. Hypertension. 8. Hyperlipidemia. 9. Coronary artery disease. 10. Chronic systolic heart failure. 11. Paroxysmal atrial fibrillation. 12. Nonalcoholic fatty liver disease. 13. Osteoarthritis, multiple sites. 14. Restless legs syndrome. Plan: We will admit the patient to hospital for further evaluation and management of this problem. The patient is appropriate for inpatient and is expected to spend 2 midnights in hospital. We will go ahead and start the patient on IV fluid using normal saline at 100 cc/hour. Monitor blood pressure and monitor electrolytes and renal function. For his diabetes, we will monitor fingerstick blood sugar with sliding scale before each meal and at bedtime and provide mild sliding scale for diabetes control. Hypertension will not require any further intervention except monitoring and at appropriate time, consider medication if necessary. His chronic systolic heart failure problem is stable at this time. He is on Entresto. We will hold this and whether we can restart that at appropriate time or not, it will depend on his blood pressure readings. We will not give any diuretic therapy which he takes furosemide at home because of the low blood pressure that he came in with. The patient has paroxysmal atrial fibrillation, was taking Eliquis in the past, but due to multiple falls and high risk of future falls and injury, his Eliquis was discontinued several months ago. He should follow up with tool polishing machine operator for consideration of left atrial appendage closure. The patient is really not compliant with medications and really he does not have any assistance at home and he mostly relies on my office time to help him with his different needs and today I have informed him that if he does not bring his medications regularly to office and does not take his medications regularly as prescribed by me according to the list that we have at the office, I will not be able to continue to look after him as his physician. Total time spent today 60 minutes including review of last office visit record from 10/22/2024, performing today's evaluation and management, and making arrangements for hospital admission. ANNA/ARAMNDO Voice ID: [id number] MTDD
[2024-10-30] MEDS: PANTOPRAZOLE 40MG TABLET PO SCH (05:26)
[2024-10-30] MEDS: INSULIN REGULAR (HUMAN) 100 UNIT/ML SQ SCH (07:30)
[2024-10-30] MEDS: VALACYCLOVIR 500 MG TAB PO SCH (08:40)
[2024-10-30] MEDS: MONTELUKAST 10 MG TAB PO SCH (08:41)
[2024-10-30] MEDS: LEVOTHYROXINE SOD 0.025 MG TAB PO SCH (08:41)
[2024-10-30] MEDS: ASPIRIN EC 81 MG TAB PO SCH (08:41)
[2024-10-30] MEDS: HOME MED 1 EA UNK (Fluticasone/Umeclidin/Vilanter [Trelegy Ellipta 200-62.5-25] Blst.W.Dev IH SCH (08:41)
[2024-10-30] MEDS: PNEUMOCOCCAL VACCINE 0.5 ML IMVAC ONE (08:45)
[2024-10-30 08:48] LABS: Anion Gap 7.2 mEq/L (5.0-15.0); BUN Blood Urea Nitrogen 58.0 mg/dL (7-18); Glucose Level 126.0 mg/dL (74-106); Potassium 4.2 mEq/L (3.5-5.1)
[2024-10-30 08:49] LABS: Troponin High Sensitivity 104.3 pg/mL (<58.9)
--- NOTE | 2024-10-30 11:33 | P.CNS ---
Date of Consult: 10/30/24 Chief Complaint: NSTEMI, Hypotesnion History of Present Illness: Patient with PMH of CAD S/P CABG with only patent ALBERTO-LAD, PCI RCA 2020, heart failure mild reduced EF, severe pulmonary HTN, presented from Dr. Veliz office with low BP, patient has a complex history, we attempted to do coronary angiogram recently but he was not able to lay flat due to cough and neck issues, patient was then admitted to hospital, diuresed and discharged, patient is not sure about medications he takes. denies chest pain, no palpitations, no syncope. Allergies povidone-iodine [From Betadine] Allergy (Mild, Verified 10/10/24 14:55) Rash Home medications list reviewed: Yes Home Medications: Atorvastatin Calcium [Lipitor] 1 tab PO BEDTIME 12/05/21 Levothyroxine Sodium 1 tab PO DAILY 12/05/21 Linagliptin [Tradjenta] 1 tab PO DAILY 12/05/21 Montelukast [Singulair*] 1 tab PO DAILY 12/05/21 Ropinirole HCl [Requip*] 1 tab PO BID 12/05/21 Valacyclovir HCl [Valtrex] 1 tab PO DAILY 12/05/21 Furosemide 1 tab PO BID 07/30/23 Aspirin [Aspirin EC 81 MG] 1 tab PO DAILY 12/23/23 Apixaban [Eliquis] 2.5 mg PO BID 30 Days #60 tablet 10/18/24 Benzonatate [Tessalon Perle*] 200 mg PO TID PRN cap 10/18/24 Clopidogrel Bisulfate [Plavix] 75 mg PO DAILY 30 Days #30 10/18/24 Guaifenesin/Dextromethorphan [Guaifenesin Dm Syrup] 10 ml PO ACHSPRN PRN 5 Days #200 ml 10/18/24 Tamsulosin [Flomax*] 0.4 mg PO BEDTIME cap 10/18/24 carvediloL [Coreg] 6.25 mg PO BID 30 Days #60 tab 10/18/24 Fluticasone/Umeclidin/Vilanter [Trelegy Ellipta 200-62.5-25] 1 inh IH DAILY 10/29/24 Levothyroxine Sodium 25 mcg PO [id number] 10/29/24 Midodrine HCl [Proamatine*] 5 mg PO BID 10/29/24 Pantoprazole [Protonix Tab*] 40 mg PO [id number] 10/29/24 - Past Medical/Surgical History Diabetic: No -: DM -: COPD -: Hx [place] -: Hx Diffuse Large B Cell Lymphoma (DLBCL) -: Hyperlipidemia -: HTN -: Hypothyroidism -: Osteoarthritis -: cva -: Severe pulmonary hypertension -: knee replacement Left -: open heart surgery -: left hip repLACEMENT -: METAL PLATED IN RIGHT ARM Psychosocial/ Personal History: Lives alone with daily care-lead operator - Family History Father Medical History: Heart disease, Hypertension - Social History Smoking Status: Unknown if ever smoked Alcohol use: No CD- Drugs: No Caffeine use: Yes Place of Residence: Home Review of Systems 10-point ROS is otherwise unremarkable Physical Examination Temp Pulse Resp BP Pulse Ox 97.5 F 57 16 89/50 L 95 10/30/24 08:00 10/30/24 08:00 10/30/24 08:00 10/30/24 08:00 10/30/24 08:00 General: Alert, In no apparent distress HEENT: Atraumatic, PERRLA, Mucous membr. moist/pink, EOMI, Sclerae nonicteric Neck: Supple, 2+ carotid pulse no bruit, No LAD, Without JVD or thyroid abnormality Respiratory: Clear to auscultation bilaterally, Normal air movement Cardiovascular: Regular rate/rhythm, Normal S1 S2 Gastrointestinal: Normal bowel sounds, No tenderness Musculoskeletal: No tenderness Integumentary: No rashes Neurological: Normal gait, Normal speech, Normal tone, Normal affect Lymphatics: No axilla or inguinal lymphadenopathy Laboratory Data (last 24 hrs) 10/30/24 10/29/24 10/29/24 07:56 20:20 20:20 WBC 6.70 Hgb 12.2 L Hct 37.3 L Plt Count 100 L Sodium 139 137 Potassium 4.2 4.4 BUN 58 H 56 H Creatinine 3.22 H 3.64 H Glucose 126 H 96 Magnesium 2.7 H Total Bilirubin 0.6 AST 19 ALT 17 Alkaline Phosphatase 146 H - Problems (1) Chronic combined systolic (congestive) and diastolic (congestive) heart failure Current Visit: Yes Status: Acute Plan: Patient currently looks euovolemic on exam continue to hold lasix as patient kidney function is worse. gentle hydration and monitor input and output. (2) Atrial fibrillation Current Visit: No Status: Chronic Plan: EKG shows AF, rate controlled monitor patient on tele patient is not on anticoagulation due to falls. not on AVN blocking agents due to low BP will continue to monitor (3) NSTEMI (non-ST elevated myocardial infarction) Current Visit: No Status: Resolved Plan: patient with history of CAD S/P CABG with only patent ALBERTO LAD and RCA stent back in 2020, he was seen in office and stress test is abnormal, attempted to do coronary angiogram recently but unable to lay flat due to extensive coughing spells and neck problems. troponin mild elevated but trending down. with patient worsened kidney function, he is under high risk of MONTSERRAT Would recommend getting Nephrology on board to discuss risk of MONTSERRAT with patient and will monitor kidney function on daily basis. meanwhile continue ASA 81 mg daily
[2024-10-30] MEDS: ENOXAPARIN 30 MG/0.3 ML SQ SCH (18:17)
--- NOTE | 2024-10-30 23:02 | PN ---
Date of Progress Note: 10/30/2024 Subjective: The patient was seen this morning for followup. He was lying in bed, not in any distress. Denies any new complaints. Objective: Vital Signs: Reviewed. HEENT: Unremarkable. Lungs: Clear to auscultation. Heart: Sounds normal. Abdomen: Soft. Bowel sounds normal. No guarding, rigidity, tenderness, distention. Extremities: No leg edema. Laboratory Data: Sodium 139, potassium 4.2, chloride 108, bicarb 28, BUN 58, creatinine 3.22, glucose 126. Troponin 104.3. Impression: 1. Acute kidney injury. 2. Volume depletion. 3. Chronic obstructive pulmonary disease. 4. Type 2 diabetes mellitus. 5. Mdb-KH-xthelbroc myocardial infarction. 6. Congestive heart failure. Plan: The patient's congestive heart failure problem is stable. There is no sign of volume overload and we will continue current IV fluid. Renal function has improved compared to yesterday. We will repeat blood work tomorrow. Lovenox 40 mg subcutaneous injection x1 dose was given last night. We will continue aspirin and give Lovenox 30 mg subcu daily in the evening as of today. Cardiology consultation is appreciated. I will see him tomorrow for followup. The patient takes furosemide and Entresto at home and carvedilol, and we will not be giving any of these medications because his blood pressure is still running on the lower side. His blood pressure this morning when I saw him was 91/55. ANNA/MODL Voice ID: [id number] Report ID: [id number] CAMACHO
[2024-10-31 05:49] LABS: Anion Gap 8.6 mEq/L (5.0-15.0); BUN Blood Urea Nitrogen 46.0 mg/dL (7-18); Glucose Level 101.0 mg/dL (74-106)
[2024-10-31 05:51] LABS: Potassium 4.6 mEq/L (3.5-5.1); Troponin High Sensitivity 103.4 pg/mL (<58.9)
--- NOTE | 2024-10-31 12:50 | P.PN ---
Subjective Date of Service: 10/31/24 Chief Complaint: NSTEMI, Hypotesnion Subjective: No new changes, No C/O voiced, Tolerating diet, Ambulating, Improving Review of Systems 10-point ROS is otherwise unremarkable Physical Examination - Vital Signs Temperature: 97.8 F Blood Pressure: 109/61 Pulse: 62 Respirations: 20 Pulse Ox (%): 97 - Physical Exam General: Alert, In no apparent distress HEENT: Atraumatic, PERRLA, EOMI Neck: Supple, JVD not distended Respiratory: Clear to auscultation bilaterally, Normal air movement Cardiovascular: Regular rate/rhythm, Normal S1 S2 Gastrointestinal: Normal bowel sounds, No tenderness Musculoskeletal: No tenderness Integumentary: No rashes Neurological: Normal speech, Normal tone, Normal affect Lymphatics: No axilla or inguinal lymphadenopathy - Studies Laboratory Data (last 24 hrs) 10/31/24 04:44 Sodium 139 Potassium 4.6 BUN 46 H Creatinine 2.26 H Glucose 101 Medications List Reviewed: Yes Assessment And Plan - Current Problems (Diagnosis) (1) Chronic combined systolic (congestive) and diastolic (congestive) heart failure Current Visit: Yes Status: Acute Plan: Patient currently looks euovolemic on exam continue to hold lasix as patient kidney function is worse. gentle hydration and monitor input and output. (2) Atrial fibrillation Current Visit: No Status: Chronic Plan: EKG shows AF, rate controlled monitor patient on tele patient is not on anticoagulation due to falls. not on AVN blocking agents due to low BP will continue to monitor (3) NSTEMI (non-ST elevated myocardial infarction) Current Visit: No Status: Resolved Plan: patient with history of CAD S/P CABG with only patent ALBERTO LAD and RCA stent back in 2020, he was seen in office and stress test is abnormal, attempted to do coronary angiogram recently but unable to lay flat due to extensive coughing spe lls and neck problems. troponin mild elevated but trending down. with patient worsened kidney function, he is under high risk of MONTSERRAT Would recommend getting Nephrology on board to discuss risk of MONTSERRAT with patient and will monitor kidney function on daily basis. meanwhile continue ASA 81 mg daily
[2024-11-01 06:03] LABS: Anion Gap 6.6 mEq/L (5.0-15.0); BUN Blood Urea Nitrogen 38.0 mg/dL (7-18); Glucose Level 91.0 mg/dL (74-106); Potassium 4.6 mEq/L (3.5-5.1)
[2024-11-01 08:00] VITALS: O2SAT 99
[2024-11-01 08:33] VITALS: BP 116/80; TEMP 97.7
--- NOTE | 2024-11-01 11:49 | PN ---
Date of Progress Note: 10/31/2024 Subjective: The patient was seen this morning for followup. He was lying in bed, not in distress. Denies any complaints. No chest pain, shortness of breath. No nausea, vomiting. Objective: Vital Signs: Reviewed. HEENT: Unremarkable. Lungs: Clear to auscultation. Heart: Sounds normal. Abdomen: Soft. Bowel sounds normal. No guarding, rigidity, tenderness, distention. Extremities: No leg edema. Laboratory Data: Today, sodium 139, potassium 4.6, chloride 109, bicarb 26, BUN 46, creatinine 2.26, glucose 101. Troponin 103.4. Impression: 1. Acute kidney injury. 2. Hypertension. 3. Volume depletion. 4. Congestive heart failure. 5. COPD. Plan: We will go ahead and continue current medication. Continue IV fluid. Continue to follow with delivery motorcycle driver. We are going to continue to hold his diuretic therapy which is furosemide as well as his Entresto due to how he presented with extremely low blood pressure associated with acute kidney i njury. We will repeat blood work tomorrow. Ambulation was encouraged. Possible discharge to go [facility] tomorrow. ANNA/MODL Voice ID: [id number] Report ID: [id number]
--- NOTE | 2024-11-01 12:03 | DS ---
Date of Discharge: 11/01/2024 Disposition: Discharged to go home. Physical Examination: HEENT: Unremarkable. Lungs: Clear to auscultation. Heart: Sounds normal. Abdomen: Soft. Bowel sounds normal. No guarding, rigidity, tenderness, distention. Extremities: No leg edema. Discharge Medications And Instructions: Continue all prior home medications as below: Albuterol inhaler 2 puffs 4 times a day as needed, aspirin 81 mg daily, atorvastatin 40 mg daily at bedtime, escitalopram 5 mg daily, Trelegy Ellipta 1 puff daily, gabapentin 100 mg 2 times a day, levothyroxine 25 mcg daily, Tradjenta 5 mg daily in morning with breakfast, methocarbamol 500 mg 2 times a day, montelukast 10 mg daily, nystatin cream 2 times a day apply to rash area, pantoprazole 40 mg daily, ropinirole 1 mg 2 times a day, valacyclovir 500 mg daily. STOP Furosemide STOP Potassium chloride STOP Entresto (sacubitril/valsartan) Follow up with Dr. Veliz next week and bring all of your medication bottles to office at time of visit Laboratory Data: Upon admission, WBC 6.7, hemoglobin 12.2, platelets 100. Sodium 137, potassium 4.4, chloride 103, bicarb 27, BUN 56, creatinine 3.64, glucose 96. Hemoglobin A1c 6.4. Liver function test unremarkable. Troponin 113.8. ProBNP 4207. Chest x-ray shows no acute cardiopulmonary changes. EKG reviewed, no acute ST-T changes. Last chemistry from today, sodium 141, potassium 4.6, chloride 112, bicarb 27, BUN 38, creatinine 1.82, glucose 91. Hospital Course: This is a 74-year-old pleasant male patient, who was admitted to hospital with low blood pressure and acute kidney injury. Please see dictated H and P for more information. After the patient was evaluated at office, his blood pressure was extremely low and arrangements were made for him to get admitted to hospital. See dictated H and P for more details. After he was admitted to hospital, we started him on IV fluid and he tolerated that very well and we followed his electrolytes and renal function on a daily basis and today his renal function has improved significantly almost back to the baseline. The patient has no other complaints. He has chronic complaints of cough and coughing up some clear mucus which is his chronic problem for many years and I have encouraged him to continue to follow up with his day care provider on outpatient basis. I have given him very specific instruction that he needs to follow the list that he will be provided as created by me regarding his discharge instructions and medications and that is exactly what he needs to follow and he was reminded 1 more time to make sure that when he comes to see me next week for followup at office, he should bring all his medication bottles with him. The patient was discharged to go home in stable condition with above- mentioned medications and instructions. Final Diagnoses: 1. Hypotension. 2. Acute kidney injury. 3. Chronic kidney disease stage 3. 4. Hypothyroidism. 5. Type 2 diabetes mellitus. 6. COPD. 7. Hypertension. 8. Hyperlipidemia. 9. Coronary artery disease. 10. Chronic systolic heart failure. 11. Paroxysmal atrial fibrillation. 12. Nonalcoholic fatty liver disease. 13. Osteoarthritis, multiple sites. 14. Restless legs syndrome. ANNA/MODL Voice ID: [id number] Report ID: [id number] [facility]
== END 2024-11-01 11:50 | disposition home or self-care (01) | DRG 682 ==
LOC: 2ND 17:36
PROVIDERS: ADMIT Internal Medicine; ATTEND Internal Medicine
DX: N17.9 Acute kidney failure, unspecified (principal); I21.4 Non-ST elevation (NSTEMI) myocardial infarction; I13.0 Hypertensive heart and chronic kidney disease with heart failure and stage 1 through stage 4 chronic kidney disease, or unspecified chronic kidney disease; I50.22 Chronic systolic (congestive) heart failure; N18.30 Chronic kidney disease, stage 3 unspecified; E11.22 Type 2 diabetes mellitus with diabetic chronic kidney disease; E03.9 Hypothyroidism, unspecified; E78.5 Hyperlipidemia, unspecified; I95.9 Hypotension, unspecified; I48.0 Paroxysmal atrial fibrillation; G25.81 Restless legs syndrome; E86.9 Volume depletion, unspecified; M19.09 Primary osteoarthritis, other specified site; I25.2 Old myocardial infarction; N40.0 Benign prostatic hyperplasia without lower urinary tract symptoms; J44.9 Chronic obstructive pulmonary disease, unspecified; I25.10 Atherosclerotic heart disease of native coronary artery without angina pectoris; R29.6 Repeated falls; Z60.2 Problems related to living alone; Z95.1 Presence of aortocoronary bypass graft; Z91.81 History of falling; Z79.82 Long term (current) use of aspirin; Z79.01 Long term (current) use of anticoagulants; Z79.02 Long term (current) use of antithrombotics/antiplatelets; Z79.890 Hormone replacement therapy; Z96.642 Presence of left artificial hip joint; Z96.652 Presence of left artificial knee joint; Z79.899 Other long term (current) drug therapy; Z91.048 Other nonmedicinal substance allergy status; Z23 Encounter for immunization
CPT/HCPCS: 36415; 71045; 80048; 80053; 82947; 83036; 83735; 83880; 84484; 85027; 90471; 90732; 93005; 94640; 97116; 97161; J1650; J7030; J7613

== ENCOUNTER 2024-12-15 17:26 | Inpatient (IN) | payer OTHER ==
--- OUTSIDE RECORDS SUMMARY | 2024-12-15 17:29 | XMS REPORT | Clinical Summary ---
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 Clostridioides difficile [...] failure Assessment & Plan (03/16/2021 2:02 PM FAST FOOD SUPERVISOR): Echocardiogram done November 06, 2020 shows patient [...] Date Last Done Comments Pneumococcal Vaccine: 50+ Ye ars (2 of 2 - PCV20 or PCV21) 06/30/2017 06/30/2016 COVID-19 Vaccine ( season) 2024 Influenza Vaccine (#1) 2024 Medical Devices Implanted Type Area Mechanical Manager Device Identifier Shelf Expiration Date Model / Serial / Lot Metalware Metalware Right: Arm Description:pt sts he has a metal ryan in r arm Stent Stent Heart Insurance [employer] MEDICARE PPO [employer] MEDICARE PPO Advance Directives Documents on File Type Date Recorded Patient Ambulatory Nurse Expl anation Advance Directives: Medical Power of Photo Mask Cleaner 11/02/2020 Medical Power of Att orney * Full Code (Latest Code Status on File) Date Activated Date Inactivated Comments 10/07/2020 12:02 PM 11/14/2020 4:41 PM * Full Code Date Activated Date Inactivated Comments 09/17/2020 12:45 PM 09/23/2020 7:59 PM Care Teams Community Service Technician Relationship Specialty Start Date End Date Ray Veliz MD [address] [place] [phone] m PCP - External Referring Internal Medicine 09/03/20 Dru Smith MD [address] [place] [phone] [email or web address] PCP - General Lymphoma and Myeloma 09/16/20
--- NOTE | 2024-12-15 18:25 | RAD REPORT ---
EXAM: Chest Single View HISTORY: 74 years Male edema COMPARISON: 12/08/2024 FINDINGS: LUNGS/PLEURA: Increased left basilar opacities. Slight increased elevation of left hemidiaphragm. CARDIAC/MEDIASTINUM: Stable enlargement. UPPER ABDOMEN: No significant abnormality. BONES: Sternotomy. No acute abnormality. LINES/TUBES/OTHER: N/A IMPRESSION: Increased left basilar opacities likely represent atelectasis. No pulmonary edema identified.
[2024-12-15] MEDS ORDERED: LEVALBUTEROL 1.25 MG/3 ML NEB ONE (19:09)
[2024-12-15] MEDS ORDERED: FUROSEMIDE 20 MG/ 2ML VIAL ONE (19:09)
[2024-12-15 19:31] LABS: Absolute Lymphocytes (CBC) 0.2 K/uL (0.7-4.9); Hematocrit 32.9 % (39.6-49.0); Hemoglobin 10.9 g/dL (13.6-17.9); MCH 28.6 pg (27.0-35.0); MCHC 33.1 g/dL (32.0-36.0); MCV 86.4 fL (80-100); MPV 6.9 fL (7.6-11.3); Nucleated RBC Absolute Count 0.0 (0-0); Nucleated Red Blood Cells % 0.2 % (0-0); RBC Red Blood Cell Count 3.81 M/uL (4.33-5.43); White Blood Count 8.90 thou/uL (4.3-10.9)
[2024-12-15 19:36] LABS: PT Prothrombin Time 13.6 SECONDS (10-13.0); PTT, Activated Partial Thromb 32.7 SECONDS (27.2-37.4); Protime INR 1.21
[2024-12-15 19:49] LABS: ALT/SGPT 33.0 U/L (16-61); AST/SGOT 28.0 U/L (15-37); Albumin 3.2 g/dL (3.4-5.0); Albumin/Globulin Ratio 0.7 (1.1-1.8); Alkaline Phosphatase 174.0 U/L (45-117); Anion Gap 6.9 mEq/L (5.0-15.0); BUN Blood Urea Nitrogen 33.0 mg/dL (7-18); Bilirubin Indirect, Calculated 0.5 mg/dL (0.2-0.8); Globulin 4.3 g/dL (2.3-3.5); Glucose Level 155.0 mg/dL (74-106); Magnesium 2.5 mg/dL (1.6-2.4); NT PRO-BNP 9223.0 pg/mL (<450); Potassium 3.9 mEq/L (3.5-5.1)
--- NOTE | 2024-12-15 19:52 | RAD REPORT ---
EXAMINATION: US LOWER EXTREMITY VENOUS DOPPLER BILATERAL CLINICAL INDICATION: Male, 74 years old.SWELLING TECHNIQUE: Complete bilateral duplex sonography of the lower extremity veins was performed. The exami nation included compression for vein patency, color Doppler imaging and flow augmentation in response to distal compression of the distal external iliac, common femoral, femoral, popliteal, lilo berry, tibial and great saphenous veins. [id number]. COMPARISON: No prior exams FINDINGS: Duplex sonography imaging demonstrates all deep veins examined to be fully compressible with spontane ous, phasic and augmented flow bilaterally. IMPRESSION: No evidence of deep venous thrombosis seen in either lower extremity.
[2024-12-15 19:59] LABS: Troponin High Sensitivity 245.7 pg/mL (<58.9)
--- NOTE | 2024-12-15 21:06 | EDPHYS ---
Physician Documentation [facility] Name: Valerio Berg Age: 74 yrs Sex: Male : 1950 Arrival Date: 12/15/2024 Time: 17:26 Bed 5 Private MD: ED Physician Asa Cordoba HPI: 12/15 18:05 This 74 yrs old Black Male presents to ER via Wheelchair with complaints of Leg cp Swelling, DRAINAGE FROM LEGS. 18:05 The patient presents with swelling, drainage. cp 18:05 The complaints affect the left lower leg and left foot. Onset: The symptoms/episode cp began/occurred 2 day(s) ago. Associated signs and symptoms: Pertinent positives: shortness of breath, Pertinent negatives fever, chest pain. Treatment prior to arrival includes: no previous treatment. Historical: - Allergies: 17:41 Betadine; hb 17:41 Povidone-Iodine; hb - PMHx: 17:41 Borderline Diabetes; Congestive heart failure; COPD; CVA; Hypothyroidism; Myocardial hb infarction; - Immunization history:: Adult Immunizations up to date. - Infectious Disease History:: Denies. - Social history:: Smoking status: Patient denies any tobacco usage or history of. ROS: 18:10 Constitutional: Negative for body aches, chills, fever, poor PO intake, cp 18:10 Eyes: Negative for injury, pain, redness, and discharge, cp 18:10 ENT: Negative for drainage from ear(s), ear pain, sore throat, difficulty swallowing, difficulty handling secretions, 18:10 Cardiovascular: Positive for edema, Negative for chest pain, palpitations, 18:10 Respiratory: Positive for shortness of breath, at rest. Negative for wheezing, 18:10 Abdomen/GI: Negative for abdominal pain, vomiting, diarrhea, constipation, 18:10 Neuro: Negative for altered mental status, dizziness, headache, syncope, weakness, 18:10 All other systems are negative, Exam: 18:15 Constitutional: The patient appears in no acute distress, alert, awake, cp non-diaphoretic, non-toxic, well developed, well nourished, 18:15 Head/Face: Normocephalic, atraumatic. cp 18:15 Eyes: Periorbital structures: appear normal, Conjunctiva: normal, no exudate, no injection, Sclera: no appreciated abnormality, Lids and lashes: appear normal, bilaterally, 18:15 ENT: External ear(s): are unremarkable, Nose: is normal, Mouth: Lips: moist, Posterior pharynx: Airway: no evidence of obstruction, patent, 18:15 Neck: ROM/movement: is normal, is supple, without pain, no range of motions limitations, 18:15 Chest/axilla: Inspection: normal, 18:15 Cardiovascular: Rate: normal, Rhythm: irregular, Edema: pedal edema, that is moderate, left lower leg and left foot worse than right, JVD: is not appreciated, 18:15 Respiratory: the patient does not display signs of respiratory distress, Respirations: labored breathing, that is mild, Breath sounds: decreased breath sounds, that are mild, throughout, stridor, is not appreciated, 18:15 Abdomen/GI: Inspection: distension, that is mild, Bowel sounds: active, all quadrants, Palpation: abdomen is soft and non-tender, in all quadrants, 18:15 Back: pain, is absent, 18:15 Skin: cellulitis, is not appreciated, 18:15 Neuro: Orientation: to person, place \T\ time. Mentation: is normal, Motor: moves all fours, no focal deficits, Sensation: no obvious gross deficits, 18:17 ECG was reviewed by the Attending Physician. cp Vital Signs: 17:39 BP 136 / 81; Pulse 96; Resp 20; Temp 97.8(TE); Pulse Ox 98% ; Pain 0/10; hb 19:52 BP 133 / 82; Pulse 81; Resp 20 S; Pulse Ox 100% on 2 lpm NC; lg3 20:33 Weight 83.46 kg; vc1 20:58 BP 131 / 82; Pulse 77; Resp 21 S; Pulse Ox 96% on 2 lpm NC; lg3 22:12 BP 126 / 79; Pulse 73; Resp 20 S; Pulse Ox 100% on 2 lpm NC; lg3 23:45 BP 127 / 87; Pulse 75; Resp 16; Pulse Ox 99% ; vc1 17:39 Pain Scale: Adult hb MDM: 17:34 Medical Screening Exam initiated cp 20:45 Management of patient was discussed with the following: Seed Cleaner Operator: DR Beasley who will cp consult after discussion of elevated troponin. 21:10 Management of patient was discussed with the following: Primary Care Provider: DR Veliz, discussed elevated troponin, bnp and patient's symptoms. DR Veliz reports troponin is chronically elevated and wants 40 Lovenox now and ordered daily. Requests 40 Lasix BID, scheduled Neb treatments, 1 mg bid Requip and admit to his service. 21:10 Data reviewed: vital signs, nurses notes, lab test result(s), EKG, radiologic studies, cp plain films, and as a result, I will admit patient. 21:10 I considered the following discharge prescriptions or medication management in the emergency department Medications were administered in the Emergency Department. See MAR. Independent interpretation of the following test(s) in the Emergency Department EKG: See my EKG interpretation above. Care significantly affected by the following chronic conditions: Diabetes, Congestive Heart Failure, Chronic Obstructive Pulmonary Disease. Care significantly affected by the following Social Determinants of Health: Problems related to primary support group. Counseling: I had a detailed discussion with the patient and/or guardian regarding the historical points, exam findings, and any diagnostic results supporting the discharge/admit diagnosis, lab results, the need for further work-up and treatment in the hospital. Response to treatment: the patient's symptoms have mildly improved after treatment, and as a result, I will admit patient. 23:55 Admission orders: after a detailed discussion of the patient's condition and case, the admit orders are written by me. 23:55 ED course: VSS. Pulse oxygen 99% on 2 liters NC, normal rate of 78 on traffic monitor specialist. 12/15 19:03 Order name: Basic Metabolic Panel; Complete Time: 20:45 12/15 20:45 Interpretation: Normal except: GLUC 155; BUN 33; CRE 1.72; GFR 41; CA 8.4. 12/15 19:03 Order name: CBC with Diff; Complete Time: 19:57 12/15 19:58 Interpretation: Normal except: RBC 3.81; HGB 10.9; HCT 32.9; RDW 17.7; MPV 6.9; JAZMÍN% cp 85.5; LYM% 2.3; LYMA 0.2. 12/15 19:03 Order name: LFT's; Complete Time: 20:45 12/15 19:03 Order name: Magnesium; Complete Time: 20:45 12/15 19:03 Order name: NT PRO-BNP; Complete Time: 20:45 cp 12/15 20:46 Interpretation: Reviewed. 12/15 19:03 Order name: PT-INR; Complete Time: 19:57 cp 12/15 19:03 Order name: Troponin HS; Complete Time: 20:45 cp 12/15 19:03 Order name: Ptt, Activated; Complete Time: 19:57 cp 12/15 19:03 Order name: UA Rfx Enrique Cult if indicated; Complete Time: 22:29 cp 12/15 23:55 Order name: Basic Metabolic Panel ED[facility] 12/15 23:55 Order name: Basic Metabolic Panel [facility] 12/15 23:55 Order name: CBC with Automated Diff [facility] 12/15 23:55 Order name: CBC with Automated Diff [facility] 12/15 23:55 Order name: NT PRO-BNP [facility] 12/15 23:55 Order name: NT PRO-BNP [facility] 12/15 23:55 Order name: Troponin High Sensitivity [facility] 12/15 23:55 Order name: Troponin High Sensitivity [facility] 12/15 23:55 Order name: Troponin High Sensitivity [facility] 12/15 23:55 Order name: Troponin High Sensitivity [facility] 12/15 18:00 Order name: XRAY Chest (1 view); Complete Time: 19:02 cp 12/15 19:03 Order name: US Extremity Venous W Compression Ramón; Complete Time: 19:57 cp 12/15 19:58 Interpretation: Report reviewed. 12/15 18:00 Order name: EKG; Complete Time: 18:00 12/15 23:55 Order name: CONS Physician Consult [facility] 12/15 18:00 Order name: EKG - Nurse/Tech; Complete Time: 19:26 cp 12/15 19:03 Order name: Cardiac monitoring; Complete Time: 19:26 cp 12/15 19:03 Order name: IV Saline Lock; Complete Time: 19:26 cp 12/15 19:03 Order name: Labs collected and sent; Complete Time: 19:26 cp 12/15 19:03 Order name: O2 Per Protocol; Complete Time: 19:26 cp 12/15 19:03 Order name: O2 Sat Monitoring; Complete Time: 19:26 cp EC:17 Rate is 79 beats/min. Rhythm is irregular. QRS interval is prolonged at 164 msec. QT cp interval is normal. T waves are Inverted in lead aVR. Interpreted by me. Reviewed by me. Administered Medications: 19:52 Drug: Levalbuterol Inhalation 1.25 mg Inhalation once Route: Inhalation; lg3 20:59 Follow up: Response: No adverse reaction lg3 19:52 Drug: Furosemide IVP 20 mg IVP once; give over 2 minutes Route: IVP; Site: right lg3 antecubital; 20:59 Follow up: Response: No adverse reaction lg3 23:16 Drug: Lovenox Sub-Q 40 mg Sub-Q once Route: Sub-Q; Site: abdomen; lg3 12/16 00:01 Follow up: Response: No adverse reaction vc1 12/15 23:16 Drug: morphine IVP or IV 2 mg IVP once over 4 mins Route: IVP; Infused Over: 4 mins; lg3 Site: right antecubital; 12/16 00:01 Follow up: Response: No adverse reaction; Marked relief of symptoms vc1 Disposition: 07:06 Co-signature as Attending Physician, Asa Cordoba MD I reviewed the patient's care rn provided by the Advanced Practice Provider and agree with the diagnosis and treatment plan. Disposition Summary: 12/15/24 21:06 Hospitalization Ordered Notes: Hospitalization Status: Inpatient Admission cp Provider: Ray Veliz cp Location: Telemetry/MedSurg (Inpatient) cp Condition: Stable cp Problem: new cp Symptoms: have improved cp Bed/Room Type: Standard Room Assignment: 412(12/16/24 00:17) cg Diagnosis - Unspecified combined systolic (congestive) and diastolic (congestive) heart failure cp - Subsequent non-ST elevation (NSTEMI) myocardial infarction cp - Dyspnea cp Forms: - Medication Reconciliation Form cp - SBAR form cp - Leadership Thank You Letter cp Critical care time excluding procedures: 20:13 Critical care time: Bedside Care: 8 minutes, Consultation: 40 minutes. Total time: 48 cp minutes Signatures: Dispatcher [employer] Asa Durham MD MD rn Page, Corey, PA-C PANicole Moscoso cp, RN RN Hoa Smith RN RN hb Able, Lacie, RN RN lg3 Brandy Swartz RN vc1 Corrections: (The following items were deleted from the chart) 12/15 19:04 19:04 BASIC METABOLIC PANEL+C.LAB.BRZ ordered. EDMS EDMS 19:04 19:04 CBC+H.LAB.BRZ ordered. EDMS EDMS 19:04 19:04 HEPATIC FUNCTION+C.LAB.BRZ ordered. EDMS EDMS 19:04 19:04 MAGNESIUM+C.LAB.BRZ ordered. EDMS EDMS 19:04 19:04 PROBNP+C.LAB.BRZ ordered. EDMS EDMS 19:04 19:04 PROTIME (+INR)+COAG.LAB.BRZ ordered. EDMS EDMS 19:04 19:04 Troponin High Sensitivity+C.LAB.BRZ ordered. EDMS EDMS 19:04 19:04 PTT, ACTIVATED+COAG.LAB.BRZ ordered. EDMS EDMS 19:04 19:04 UA Rfx Enrique Cult if indicated+U.LAB.BRZ ordered. EDMS EDMS 12/16 00:17 12/15 21:06 cp cg 12/16 20:07 20:05 Management of patient was discussed with the following: Seed Cleaner Operator: DR Beasley who cp will consult after discussion of elevated troponin. cp
--- NOTE | 2024-12-15 21:06 | ER ---
Nurse's Notes [facility] Name: Valerio Berg Age: 74 yrs Sex: Male : 1950 Arrival Date: 12/15/2024 Time: 17:26 Bed 5 Private MD: Diagnosis: Unspecified combined systolic (congestive) and diastolic (congestive) heart failure;Subsequent non-ST elevation (NSTEMI) myocardial infarction;Dyspnea Presentation: 12/15 17:39 Chief complaint: Worsening LLE swelling, redness, and drainage from leg x 2 days. hb Coronavirus screen: At this time, the client does not indicate any symptoms associated with coronavirus-19. Ebola Screen: No symptoms or risks identified at this time. Initial Sepsis Screen: Does the patient meet any 2 criteria? No. Patient's initial sepsis screen is negative. Does the patient have a suspected source of infection? No. Patient's initial sepsis screen is negative. Risk Assessment: Do you want to hurt yourself or someone else? Patient reports no desire to harm self or others. Onset of symptoms was December 14, 2024. 17:39 Method Of Arrival: Wheelchair hb 17:39 Acuity: ADRIÁN 3 hb Historical: - Allergies: 17:41 Betadine; hb 17:41 Povidone-Iodine; hb - PMHx: 17:41 Borderline Diabetes; Congestive heart failure; COPD; CVA; Hypothyroidism; Myocardial hb infarction; - Immunization history:: Adult Immunizations up to date. - Infectious Disease History:: Denies. - Social history:: Smoking status: Patient denies any tobacco usage or history of. Screenin:10 [facility] ED Fall Risk Assessment (Adult) History of falling in the last 3 months, lg3 including since admission No falls in past 3 months (0 pts) Confusion or Disorientation No (0 pts) Intoxicated or Sedated No (0 pts) Impaired Gait No (0 pts) Mobility Assist Device Used Yes (1 pt) Altered Elimination No (0 pt) Score/Fall Risk Level 0 - 2 = Low Risk Oriented to surroundings, Maintained a safe environment, Educated pt \T\ family on fall prevention, incl call for assistance when getting out of bed, Assessed \T\ reinforced patient's understanding of fall precautions. Abuse screen: Denies threats or abuse. Denies injuries from another. Nutritional screening: No deficits noted. Tuberculosis screening: No symptoms or risk factors identified. Assessment: 19:10 General: Appears in no apparent distress. comfortable, Behavior is calm, cooperative. lg3 Pain: Denies pain. Neuro: No deficits noted. Payan Agitation-Sedation Scale (RASS): 0 - Alert and Calm Level of Consciousness is awake, alert, obeys commands, Oriented to person, place, time, situation. Cardiovascular: No deficits noted. Denies chest pain, Capillary refill < 3 seconds Clubbing of nail beds is absent JVD is absent Patient's skin is warm and dry. Respiratory: Reports shortness of breath on exertion Airway is patent Respiratory effort is even, unlabored, Respiratory pattern is regular, symmetrical. GI: No deficits noted. Abdomen is round non-distended. : No signs and/or symptoms were reported regarding the genitourinary system. EENT: No deficits noted. No signs and/or symptoms were reported regarding the EENT system. Derm: No deficits noted. No signs and/or symptoms reported regarding the dermatologic system. Skin is intact, is thin, Skin is dry, Skin is normal, Skin temperature is warm. Musculoskeletal: Circulation, motion, and sensation intact. Range of motion: intact in all extremities, Swelling present in right leg and left leg. 20:58 Reassessment: Patient appears in no apparent distress at this time. No changes from lg3 previously documented assessment. Patient and/or family updated on plan of care and expected duration. Pain level reassessed. Patient is alert, oriented x 3, equal unlabored respirations, skin warm/dry/pink. 23:59 Reassessment: Patient appears in no apparent distress at this time. No changes from vc1 previously documented assessment. Patient and/or family updated on plan of care and expected duration. Pain level reassessed. Patient is alert, oriented x 3, equal unlabored respirations, skin warm/dry/pink. Vital Signs: 17:39 BP 136 / 81; Pulse 96; Resp 20; Temp 97.8(TE); Pulse Ox 98% ; Pain 0/10; hb 19:52 BP 133 / 82; Pulse 81; Resp 20 S; Pulse Ox 100% on 2 lpm NC; lg3 20:33 Weight 83.46 kg; vc1 20:58 BP 131 / 82; Pulse 77; Resp 21 S; Pulse Ox 96% on 2 lpm NC; lg3 22:12 BP 126 / 79; Pulse 73; Resp 20 S; Pulse Ox 100% on 2 lpm NC; lg3 23:45 BP 127 / 87; Pulse 75; Resp 16; Pulse Ox 99% ; vc1 17:39 Pain Scale: Adult hb ED Course: 17:27 Patient arrived in ED. ts1 17:34 Giancarlo Velarde PA-C is [facility]. cp 17:34 Asa Cordoba MD is Attending Physician. cp 17:41 Triage completed. hb 17:41 Arm band placed on. hb 18:15 XRAY Chest (1 view) In Process Unspecified. EDMS 19:10 Patient has correct armband on for positive identification. Placed in gown. Bed in low lg3 position. Call light in reach. Side rails up X 1. Client placed on continuous cardiac and pulse oximetry monitoring. NIBP monitoring applied. media monitor on. Door closed. Noise minimized. Warm blanket given. Pillow given. 19:26 Qing Miranda, RN is Primary Nurse. lg3 19:26 Initial lab(s) drawn, by ED staff, sent to lab. EKG done, by ED staff, reviewed by lg3 Giancarlo Velarde PA-C. Inserted saline lock: 20 gauge in right antecubital area, using aseptic technique. Blood collected. Flushed with 10 mL NS. 19:26 Ptt, Activated Sent. lg3 19:41 US Extremity Venous W Compression Ramón In Process Unspecified. EDMS 21:05 Ray Veliz MD is Hospitalizing Provider. 12/16 00:00 Door closed. Noise minimized. Warm blanket given. brief changed. vc1 01:03 No provider procedures requiring assistance completed. Patient admitted, IV remains in vc1 place. Administered Medications: 12/15 19:52 Drug: Levalbuterol Inhalation 1.25 mg Inhalation once Route: Inhalation; lg3 20:59 Follow up: Response: No adverse reaction lg3 19:52 Drug: Furosemide IVP 20 mg IVP once; give over 2 minutes Route: IVP; Site: right lg3 antecubital; 20:59 Follow up: Response: No adverse reaction lg3 23:16 Drug: Lovenox Sub-Q 40 mg Sub-Q once Route: Sub-Q; Site: abdomen; lg3 12/16 00:01 Follow up: Response: No adverse reaction vc1 09/21 23:16 Drug: morphine IVP or IV 2 mg IVP once over 4 mins Route: IVP; Infused Over: 4 mins; lg3 Site: right antecubital; 12/16 00:01 Follow up: Response: No adverse reaction; Marked relief of symptoms vc1 Medication: 12/15 19:10 VIS not applicable for this client. lg3 Outcome: 21:06 Decision to Hospitalize by Provider. robert 12/16 01:03 Admitted to Tele accompanied by tech, via stretcher, room 412, vc1 Condition: stable Instructed on the need for admit, 01:09 Patient left the ED. vc1 Signatures: Dispatcher [employer] EDMS Giancarlo Velarde PA-C PA-C cp Baxter, Heather, RN RN Qing Miranda RN RN lg3 Brandy Swartz RN RN vc1 Karishma Read, PAS PAS ts1
[2024-12-15 22:15] LABS: Urine Microscopic Reflex YN NO UMIC
[2024-12-15] MEDS ORDERED: MORPHINE 2 MG/ML SYR ONE (23:12)
[2024-12-15] MEDS ORDERED: ENOXAPARIN 40 MG/0.4 ML SQ ONE (23:13)
[2024-12-15] MEDS ORDERED: ONDANSETRON 4 MG/2 ML VIAL IV PRN (23:33)
[2024-12-15] MEDS ORDERED: D10W 125 ML IV PRN (23:53)
[2024-12-15] MEDS ORDERED: GLUCAGON 1 MG/VIAL IM PRN (23:53)
[2024-12-16] MEDS: IPRATROPIUM BROM 0.5MG/2.5ML NEB SCH (01:45)
[2024-12-16] MEDS: ALBUTEROL 2.5 MG/3 ML NEB SOL NEB SCH (01:45)
[2024-12-16 02:16] VITALS: BMI 26.4
[2024-12-16 05:09] LABS: Anion Gap 7.6 mEq/L (5.0-15.0); BUN Blood Urea Nitrogen 31.0 mg/dL (7-18); Glucose Level 183.0 mg/dL (74-106); NT PRO-BNP 9620.0 pg/mL (<450); Potassium 3.6 mEq/L (3.5-5.1)
[2024-12-16 05:49] LABS: Absolute Lymphocytes (CBC) 0.4 K/uL (0.7-4.9); Hematocrit 29.8 % (39.6-49.0); Hemoglobin 9.9 g/dL (13.6-17.9); MCH 28.9 pg (27.0-35.0); MCHC 33.1 g/dL (32.0-36.0); MCV 87.2 fL (80-100); MPV 7.2 fL (7.6-11.3); Nucleated RBC Absolute Count 0.0 (0-0); Nucleated Red Blood Cells % 0.1 % (0-0); RBC Red Blood Cell Count 3.42 M/uL (4.33-5.43); White Blood Count 8.10 thou/uL (4.3-10.9)
[2024-12-16] MEDS ORDERED: DOCUSATE NA/SENNA CONC 1 TAB PO PRN (07:16)
[2024-12-16] MEDS ORDERED: MAGNESIUM HYDROXIDE 8% 30 ML PO PRN (07:16)
[2024-12-16] MEDS: INSULIN REGULAR (HUMAN) 100 UNIT/ML SQ SCH (07:30)
[2024-12-16] MEDS: FUROSEMIDE 20 MG/ 2ML VIAL IV SCH (08:21)
[2024-12-16] MEDS: ENOXAPARIN 40 MG/0.4 ML SQ SCH (08:21)
[2024-12-16] MEDS: GABAPENTIN 100 MG CAP PO SCH (08:22)
[2024-12-16] MEDS: POTASSIUM CL SA 10 MEQ TAB PO SCH (08:22)
[2024-12-16] MEDS: VALACYCLOVIR 500 MG TAB PO SCH (08:22)
[2024-12-16] MEDS: PANTOPRAZOLE 40MG TABLET PO SCH (08:23)
[2024-12-16] MEDS: ASPIRIN EC 81 MG TAB PO SCH (08:23)
[2024-12-16] MEDS: ROPINIROLE HCL 1 MG TAB PO SCH (08:23)
[2024-12-16] MEDS: PIPER TAZO 2.25 GM in NA CHLORIDE 0.9% 50 ML IV SCH (08:24)
[2024-12-16] MEDS: MONTELUKAST 10 MG TAB PO SCH (08:25)
[2024-12-16] MEDS ORDERED: GABAPENTIN 100 MG CAP PO SCH (09:00)
[2024-12-16] MEDS ORDERED: ESCITALOPRAM OXALATE 10 MG TABLET PO SCH (09:00)
--- NOTE | 2024-12-16 09:34 | P.CNS ---
Date of Consult: 12/16/24 Chief Complaint: SOB, lower extremities swelling History of Present Illness: Patient with PMH od CAD, CABG with only patent ALBERTO-LAD, PCI RCA, complex, advanced diastolic heart failure, severe pulmonary HTN, right side failure, presented with worsening LIRA and Bilateral lower extremities edema, denies chest pain, no palpitations, no syncope. Allergies povidone-iodine [From Betadine] Allergy (Mild, Verified 10/10/24 14:55) Rash Home medications list reviewed: Yes Home Medications: Montelukast [Singulair*] 1 tab PO DAILY 12/05/21 Ropinirole HCl [Requip*] 1 tab PO BID 12/05/21 Valacyclovir HCl [Valtrex] 1 tab PO DAILY 12/05/21 Pantoprazole [Protonix Tab*] 40 mg PO [id number] 10/29/24 Levothyroxine Sodium 25 mcg PO DAILY 12/07/24 Aspirin 81 mg PO DAILY 12/16/24 Atorvastatin Calcium 40 mg PO BEDTIME 12/16/24 Gabapentin 300 mg PO BID 12/16/24 Sildenafil Citrate 20 mg PO TID 12/16/24 predniSONE [Deltasone] 10 mg PO SEECOM 12/16/24 - Past Medical/Surgical History Diabetic: No -: DM -: COPD -: Hx DE -: Hx Diffuse Large B Cell Lymphoma (DLBCL) -: Hyperlipidemia -: HTN -: Hypothyroidism -: Osteoarthritis -: cva -: Severe pulmonary hypertension -: knee replacement Left -: open heart surgery -: left hip repLACEMENT -: METAL PLATED IN RIGHT ARM Psychosocial/ Personal History: 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 moist/pink, EOMI, Sclerae nonicteric Neck: Supple, 2+ carotid pulse no bruit, No LAD, Without JVD or thyroid abnormality Respiratory: Normal air movement, Crackles/rales Cardiovascular: Regular rate/rhythm, Normal S1 S2 Gastrointestinal: Normal bowel sounds, No tenderness Musculoskeletal: No tenderness Integumentary: No rashes Neurological: Normal gait, Normal speech, Normal tone, Normal affect Lymphatics: No axilla or inguinal lymphadenopathy Laboratory Data (last 24 hrs) 12/15/24 12/15/24 12/15/24 19:20 19:20 19:20 WBC 8.90 Hgb 10.9 L Hct 32.9 L Plt Count 176 PT 13.6 H INR 1.21 APTT 32.7 Sodium 137 Potassium 3.9 BUN 33 H Creatinine 1.72 H Glucose 155 H Magnesium 2.5 H Total Bilirubin 1.4 H AST 28 ALT 33 Alkaline Phosphatase 174 H - Problems (1) Pulmonary hypertension Current Visit: Yes Status: Acute Plan: continue Lasix 40 mg IV BID Consider consulting pulmonary team to initiate PAH treatment last echo shown severe pulmonary HTN (2) Acute on chronic diastolic CHF (congestive heart failure) Current Visit: No Status: Chronic Plan: continue lasix 40 mg IV BID Continue to monitor input and output and electrolytes. (3) Atrial fibrillation Current Visit: No Status: Chronic Plan: please place patient on tele not on NOAC due to multiple falls and high bleeding risk.
[2024-12-16] MEDS: DOXYCYCLINE 100 MG in NA CHLORIDE 0.9% 100 ML IVPB SCH (09:38)
[2024-12-16] MEDS: BENZONATATE 100 MG CAP PO PRN (20:18)
[2024-12-16] MEDS: ATORVASTATIN 40 MG TAB PO SCH (20:19)
[2024-12-16] MEDS: HYDROCODONE/APAP 5/325 MG TAB PO PRN (20:19)
--- NOTE | 2024-12-16 22:55 | HP ---
Date of Admission: 12/16/2024 Chief Complaint: Leg swelling and drainage from leg. History Of Present Illness: A 74-year-old male patient, who came into emergency room with complaints of bilateral leg edema and some clear watery type of discharge from both legs. He has very small superficial open wound on the back of his lower legs and that is where he has this clear drainage coming out. He came into emergency room with this and after he was evaluated, he was admitted to the hospital. The patient has chronic cough and shortness of breath with activity. This has remained unchanged. Denies any chest pain. No paroxysmal nocturnal dyspnea or orthopnea. Medications: Albuterol inhaler 2 puffs 4 times a day as needed, aspirin 81 mg daily, atorvastatin 40 mg daily at bedtime, Trelegy Ellipta 1 puff daily, gabapentin 100 mg 2 times a day, levothyroxine 25 mcg daily, Tradjenta 5 mg daily in morning with breakfast, montelukast 10 mg daily, nystatin cream 2 times a day apply to rash area, pantoprazole 40 mg daily, ropinirole 1 mg 2 times a day, valacyclovir 500 mg daily. Allergies: TO BETADINE CAUSING RASH. Review of Systems: Musculoskeletal: As mentioned above. Respiratory: Chronic cough. Cardiovascular: Leg edema. All other systems reviewed and negative. 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 Fregoso, constipation, chronic kidney disease, benign prostatic hypertrophy, osteoarthritis at multiple sites, lumbar spinal stenosis, and hypokalemia, chronic systolic heart failure. Past Surgical History: Teeth extraction, coronary artery bypass surgery, surgery for right radius and ulna fracture, and hip and knee surgery. Family History: Mother had Alzheimer's disease, diabetes, and tuberculosis. Brother had stroke. Social History: Prior history of smoking, not at present time. Use of alcohol negative. He quit using alcohol in 2006. Physical Examination: Vital Signs: Temperature 97.6, pulse 82, respiratory rate 16, blood pressure 144/83, oxygen saturation 100%. Height 5 feet 10 inches, weight 184 pounds. General: Awake, alert, oriented, not in distress. HEENT: Head atraumatic, normocephalic. Conjunctivae nonerythematous. Sclerae white. Mouth, no thrush or edema noted. Ears/Nose, no mass, lesion, discharge noted. Neck: Supple. No JVD, lymph nodes, bruit, thyromegaly noted. Lungs: Bilateral good equal air entry. Clear to auscultation. No rhonchi. No rales. Heart: Normal heart sounds, no murmur or gallop. Abdomen: Soft, bowel sounds normal. No guarding, rigidity, tenderness, mass, hepatosplenomegaly, distention, or bruit noted. Extremities: Bilateral grade 2 pedal edema involving both thighs and both lower extremities between knee and ankle. Left medial thigh involving almost entire medial thigh has pink, warm, discolored skin, and tender to touch and this extends all the way to left medial knee and upper part of left medial leg. Left posterior lower leg has 2 small superficial ulcers in form of loss of dermal skin and they are measuring 2 to 3 mm in size and there is another linear superficial ulcer in form of loss of dermal skin about 2 cm x 2 mm vertical in size. Skin: No rash, ulcer, cellulitis. Lymphatics: No lymph node enlargement in neck, supraclavicular, infraclavicular region. Neuro: No focal neurological deficit. Chest: Unremarkable. External Genitalia: Deferred. Rectal: Deferred. Laboratory Data: Yesterday, WBC 8.9, hemoglobin 10.9, platelets 176. Sodium 137, potassium 3.9, chloride 103, bicarb 31, BUN 33, creatinine 1.72, glucose 155. Liver function tests unremarkable. Troponin 245. ProBNP 9223. Urinalysis negative. Chest x-ray, left basal atelectasis. Venous Doppler of both lower extremity negative for DVT. Today, WBC 8.1, hemoglobin 9.9, platelets 172. Sodium 140, potassium 3.6, chloride 105, bicarb 31, BUN 31, creatinine 1.61, glucose 183. Troponin 210. ProBNP 9620. Impression: 1. Congestive heart failure, chronic, systolic, with acute exacerbation. 2. COPD. 3. Chronic kidney disease stage IIIA. 4. Hypothyroidism. 5. Type 2 diabetes mellitus. 6. Hypertension. 7. Hyperlipidemia. 8. Coronary artery disease. 9. Paroxysmal atrial fibrillation. 10. Cellulitis, left lower extremity. 11. Osteoarthritis, multiple sites. 12. Restless legs syndrome. 13. Nonalcoholic fatty liver disease. Plan: Admit the patient to hospital for further evaluation and management of this problem. The patient is appropriate for inpatient and is expected to spend 2 midnights in hospital. For his congestive heart failure, we will go ahead and give IV Lasix 40 mg 2 times a day. Monitor intake, output, daily weight, electrolytes, and renal function. The patient's last echocardiogram was done in September of this year, so we will not need to repeat another echocardiogram. He started his congestive heart failure with low ejection fraction, but over period of time, it has improved to normal ejection fraction. He was on Entresto and carvedilol, but those 2 medications were discontinued in recent past because of low blood pressure, but he continue to receive his diuretic therapy. We will consult fruit receiver for this as well as his cardiac enzymes are abnormal, consistent with non-STEMI type 2. His cardiac enzymes always looks slightly abnormal with troponin in 150 to 250 range almost with every hospital stay as I have reviewed with multiple prior lab results and we will continue aspirin and Lovenox per order and follow up with fruit receiver regarding that as well. For COPD, continue his nebulizer treatment. No need for further intervention. For chronic kidney disease, it is stable. We will monitor it. No need for further intervention. For hypothyroidism, he is on levothyroxine, which we will continue that, will not require any further intervention. For diabetes, we will manage that with sliding scale insulin as he takes Tradjenta at home, which is not available in the hospital, so we will just manage with sliding scale insulin. For coronary artery disease, obviously we will continue to follow with fruit receiver for his recommendation. For paroxysmal atrial fibrillation, he was on chronic anticoagulation therapy, Eliquis, which was discontinued few months ago because of recurrent falls and high risk of falls on ongoing basis, so in someone like him, risk is more than benefit. So, Eliquis was discontinued few months ago and he is on aspirin therapy which we will continue that. For cellulitis, we will start him on Zosyn as well as doxycycline. Monitor him on daily basis for response and if necessary, change antibiotic therapy. Total time spent 65 minutes including review of last hospital admission record from 12/07/2024, review of emergency room visit record, communication with the emergency room physician, and performing today's evaluation and management. ANNA/ARMANDO Voice ID: [id number] MTDD
[2024-12-17] MEDS: LEVOTHYROXINE SOD 0.025 MG TAB PO SCH (05:56)
[2024-12-17 06:24] LABS: Anion Gap 4.2 mEq/L (5.0-15.0); BUN Blood Urea Nitrogen 33.0 mg/dL (7-18); Glucose Level 102.0 mg/dL (74-106); Magnesium 2.4 mg/dL (1.6-2.4); Potassium 5.2 mEq/L (3.5-5.1)
[2024-12-17 06:26] LABS: Troponin High Sensitivity 227.8 pg/mL (<58.9)
[2024-12-17] MEDS: SILDENAFIL CITRATE 20 MG TABLET PO SCH (08:47)
[2024-12-17] MEDS: SILVER SULFADIAZINE 1% 25 GM TOP SCH (12:11)
--- NOTE | 2024-12-17 22:56 | PN ---
Date of Progress Note: 12/17/2024 Subjective: The patient was seen this morning for followup. No new complaints or problems reported by him, lying in bed, sleeping, easily arousable. Denies any new complaints. Objective: Vital Signs: Reviewed. HEENT: Unremarkable. Lungs: Clear to auscultation. Heart: Sounds normal. Abdomen: Soft. Bowel sounds normal. No guarding, rigidity, tenderness, distention. Extremities: Bilateral leg edema present, but better today than yesterday and skin over left medial thigh redness and tenderness actually has improved compared to yesterday. No open wound on the left thigh. Left lower posterior leg open wound is slightly better today than yesterday. Laboratory Data: Sodium 141, potassium 5.2, chloride 106, bicarb 36, BUN 33, creatinine 1.74, glucos e 102. Troponin 227.8. Impression: 1. Cellulitis, left leg. 2. Congestive heart failure. 3. Hyperkalemia. 4. Chronic kidney disease. 5. Type 2 diabetes mellitus. 6. Non-STEMI, type 2. Plan: We will continue aspirin. Continue heparin. Continue to follow up with electric motor winders assembler. We ester l continue current IV Lasix and IV antibiotic which is Zosyn and doxycycline. Discontinue potassium replacement in view of hyperkalemia. I will see him tomorrow morning for followup, possible discharge to go home either tomorrow or day after tomorrow depending on his co ndition. ANNA/MODL Voice ID: [id number] Report ID: [id number]
[2024-12-18 05:51] LABS: Absolute Lymphocytes (CBC) 0.4 K/uL (0.7-4.9); Hematocrit 29.4 % (39.6-49.0); Hemoglobin 9.9 g/dL (13.6-17.9); MCH 29.1 pg (27.0-35.0); MCHC 33.5 g/dL (32.0-36.0); MCV 86.9 fL (80-100); MPV 7.0 fL (7.6-11.3); Nucleated RBC Absolute Count 0.0 (0-0); Nucleated Red Blood Cells % 0.2 % (0-0); RBC Red Blood Cell Count 3.38 M/uL (4.33-5.43); White Blood Count 6.50 thou/uL (4.3-10.9)
[2024-12-18 06:06] LABS: Anion Gap 5.9 mEq/L (5.0-15.0); BUN Blood Urea Nitrogen 32.0 mg/dL (7-18); Glucose Level 122.0 mg/dL (74-106); Magnesium 2.2 mg/dL (1.6-2.4); Potassium 4.9 mEq/L (3.5-5.1)
[2024-12-18] MEDS: FUROSEMIDE 40 MG TABLET PO SCH (09:04)
--- NOTE | 2024-12-18 10:48 | P.PN ---
Subjective Date of Service: 12/18/24 Chief Complaint: SOB, lower extremities swelling Subjective: No new changes, No C/O voiced, Tolerating diet, Ambulating, Improving Review of Systems 10-point ROS is otherwise unremarkable Physical Examination - Vital Signs Temperature: 97.8 F Blood Pressure: 139/80 Pulse: 74 Respirations: 17 Pulse Ox (%): 99 - Physical Exam General: Alert, In no apparent distress HEENT: Atraumatic, PERRLA, EOMI Neck: Supple, JVD not distended Respiratory: Clear to auscultation bilaterally, Normal air movement Cardiovascular: Regular rate/rhythm, Normal S1 S2 Gastrointestinal: Normal bowel sounds, No tenderness Musculoskeletal: No tenderness Integumentary: No rashes Neurological: Normal speech, Normal tone, Normal affect Lymphatics: No axilla or inguinal lymphadenopathy - Studies Medications List Reviewed: Yes Assessment And Plan - Current Problems (Diagnosis) (1) Pulmonary hypertension Current Visit: Yes Status: Acute Plan: continue Lasix 40 mg po BID continue Sildanfil 20 mg TID last echo shown severe pulmonary HTN (2) Acute on chronic diastolic CHF (congestive heart failure) Current Visit: No Status: Chronic Plan: continue lasix 40 mg po BID Continue to monitor input and output and electrolytes. can not tolerate more medications due to low BP. (3) Atrial fibrillation Current Visit: No Status: Chronic Plan: in AF, rate controlled not on NOAC due to multiple falls and high bleeding risk.
[2024-12-18 20:52] VITALS: O2SAT 98
[2024-12-19 08:25] VITALS: BP 110/69; TEMP 99.1
--- NOTE | 2024-12-19 08:37 | PN ---
Date of Progress Note: 12/18/2024 Subjective: The patient was seen this morning for followup. He was sleeping, easily arousable, not in distress. Denies any new complaints. Objective: Vital Signs: Reviewed. HEENT: Unremarkable. Lungs: Clear to auscultation. Heart: Sounds normal. Abdomen: Soft. Bowel sounds normal. No guarding, rigidity, tenderness, distention. Extremities: Leg edema has almost completely resolved. His left medial thigh area of redness and te nderness has also significantly improved. Laboratory Data: WBC 6.5, hemoglobin 9.9, platelets 158. Sodium 141, potassium 4.9, chloride 105, b icarb 35, BUN 32, creatinine 1.94, glucose 122. Impression: 1. Cellulitis, left leg. 2. Chronic systolic heart failure, with acute exacerbation. 3. Chronic kidney disease. 4. Anemia due to chronic kidney disease. Plan: We will go ahead and continue diuretic therapy, but change Lasix from IV to oral Lasix. Ameena cortez current IV antibiotic, which is Zosyn and doxycycline. He is responding well. We will see him t omorrow for followup and possible discharge to go home tomorrow. ANNA/MODL Voice ID: [id number] Report ID: [id number]
--- NOTE | 2024-12-20 07:22 | DS ---
Date of Discharge: 12/19/2024 Disposition: Discharged to go home. Physical Examination: HEENT: Unremarkable. Lungs: Clear to auscultation. Heart: Sounds normal. Abdomen: Soft. Bowel sounds normal. No guarding, rigidity, tenderness, distention. EXTREMITIES: Trace bilateral leg edema. Left medial thigh area of warm and tender. Skin has significantly improved. Discharge Diagnoses: 1. Congestive heart failure, chronic, systolic, with acute exacerbation. 2. COPD. 3. Chronic kidney disease stage IIIA. 4. Hypothyroidism. 5. Type 2 diabetes mellitus. 6. Hypertension. 7. Hyperlipidemia. 8. Coronary artery disease. 9. Paroxysmal atrial fibrillation. 10. Cellulitis, left lower extremity. 11. Osteoarthritis, multiple sites. 12. Restless legs syndrome. 13. Nonalcoholic fatty liver disease. 14. Cellulitis, left leg. Discharge Medications And Instructions: Continue all prior home medications as below: Albuterol inhaler 2 puffs 4 times a day as needed, aspirin 81 mg daily, atorvastatin 40 mg daily at bedtime, Trelegy Ellipta 1 puff daily, gabapentin 100 mg 2 times a day, levothyroxine 25 mcg daily, Tradjenta 5 mg daily in morning with breakfast, montelukast 10 mg daily, nystatin cream 2 times a day apply to rash area, pantoprazole 40 mg daily, ropinirole 1 mg 2 times a day, valacyclovir 500 mg daily. Start following new medication and prescription was [facility] from Dr. Veliz's office: Doxycyline 100 mg, take 1 capsule by mouth two times a day with food for ten days. Augmentin 500 mg, take 1 tablet by mouth two times a day with food for ten days. Furosemide 40 mg, take 1 tablet by mouth two times a day. Follow up with Dr. Veliz next week and bring all of your medication bottles to office at time of visit Laboratory Data: Upon admission WBC 8.9, hemoglobin 10.9, platelets 176. Sodium 137, potassium 3.9, chloride 103, bicarb 31, BUN 33, creatinine 1.72, glucose 155. Liver function tests unremarkable. Troponin 245. ProBNP 9223. Urinalysis negative. Chest x-ray, left basal atelectasis. Venous Doppler of both lower extremity negative for DVT.. Hospital Course: A 74-year-old pleasant male patient, who was admitted to the hospital after he came into emergency room with congestive heart failure problem. The patient had bilateral leg swelling with clear fluid discharge from lower leg from superficial open wound. After he was evaluated, he was admitted to the hospital. He also had significant cellulitis involving left thigh. He was started on IV Zosyn and IV doxycycline. Overall, cellulitis has significantly improved. The patient also was treated with IV Lasix for congestive heart failure and his leg swelling has significantly improved. Overall, his condition has improved and today he was discharged to go home in stable condition with above-mentioned medications and instructions. ANNA/MODL Voice ID: [id number] Report ID: [id number] CAMACHO
== END 2024-12-19 10:37 | disposition home health service (06) | DRG 280 ==
LOC: ER 17:26 → ERHOLD 23:30 → 4TH 12-16 00:29
PROVIDERS: ADMIT Internal Medicine; ATTEND Internal Medicine
DX: I13.0 Hypertensive heart and chronic kidney disease with heart failure and stage 1 through stage 4 chronic kidney disease, or unspecified chronic kidney disease (principal); I50.23 Acute on chronic systolic (congestive) heart failure; I21.A1 Myocardial infarction type 2; L03.116 Cellulitis of left lower limb; N18.31 Chronic kidney disease, stage 3a; E11.22 Type 2 diabetes mellitus with diabetic chronic kidney disease; E87.5 Hyperkalemia; E03.9 Hypothyroidism, unspecified; E78.5 Hyperlipidemia, unspecified; I48.0 Paroxysmal atrial fibrillation; G25.81 Restless legs syndrome; M19.90 Unspecified osteoarthritis, unspecified site; K76.0 Fatty (change of) liver, not elsewhere classified; I27.20 Pulmonary hypertension, unspecified; M19.09 Primary osteoarthritis, other specified site; N40.0 Benign prostatic hyperplasia without lower urinary tract symptoms; J44.9 Chronic obstructive pulmonary disease, unspecified; I25.10 Atherosclerotic heart disease of native coronary artery without angina pectoris; I25.2 Old myocardial infarction; Z60.2 Problems related to living alone; Z95.1 Presence of aortocoronary bypass graft; Z88.8 Allergy status to other drugs, medicaments and biological substances; Z79.82 Long term (current) use of aspirin; Z79.01 Long term (current) use of anticoagulants; Z79.52 Long term (current) use of systemic steroids; Z79.02 Long term (current) use of antithrombotics/antiplatelets; Z86.73 Personal history of transient ischemic attack (TIA), and cerebral infarction without residual deficits; Z96.652 Presence of left artificial knee joint; Z96.642 Presence of left artificial hip joint; Z79.899 Other long term (current) drug therapy
CPT/HCPCS: 36415; 71045; 80048; 80076; 81003; 82947; 83735; 83880; 84484; 85025; 85610; 85730; 93005; 93970; 94010; 94640; 96372; 96374; 96375; 99285; J1650; J1938; J2270; J2543; J7613; J7614; J7644

== ENCOUNTER 2024-12-23 18:16 | Inpatient (IN) | payer OTHER ==
--- OUTSIDE RECORDS SUMMARY | 2024-12-23 18:20 | XMS REPORT | Clinical Summary ---
Author Name Unknown Organization [facility] Address [address] [place] [address] Care Team Providers Care Paint Spray Tender Name Role Phone Ray Veliz MD Unavailable [phone] Dru Smith MD Primary Care Provider [phone] Allergies Active Allergy Reactions Criticality Noted Date [...] 03/16/2021 Assessment & Plan (03/16/2021 1:56 PM SOFTWARE CLERK): Patient was seen by inpatient podiatric technician in September 2020 for atrial fibrillation with [...] has established a follow-up with his local podiatric technician in March for further management. Clostridioides difficile [...] failure Assessment & Plan (03/16/2021 2:02 PM SOFTWARE CLERK): Echocardiogram done November 06, 2020 shows patient [...] (#1) 2024 Medical Devices Implanted Type Area Radiology Administrator Device Identifier Shelf Expiration Date Model / Serial / Lot Metalware Metalware Right: Arm Description:pt sts he has a metal ryan in r arm Stent Stent Heart Insurance [employer] MEDICARE PPO [employer] MEDICARE PPO Advance Directives Documents on File Type Date Recorded Patient Corporate Strategist Expl anation Advance Directives: Medical Power of Plunger Shovel Operator 11/02/2020 Medical Power of Att orney * Full Code (Latest Code Status on File) Date Activated Date Inactivated Comments 10/07/2020 12:02 PM 11/14/2020 4:41 PM * Full Code Date Activated Date Inactivated Comments 09/17/2020 12:45 PM 09/23/2020 7:59 PM Care Teams Paint Spray Tender Relationship Specialty Start Date End Date Ray Veliz MD [address] [place] [phone] [email or web address] PCP - External Referring Internal Medicine 09/03/20 Dru Smith MD [address] [place] [phone] [email or web address] PCP - General Lymphoma and Myeloma 09/16/20
[2024-12-23 20:05] VITALS: BMI 25.1
--- NOTE | 2024-12-23 20:09 | RAD REPORT ---
Procedure: Chest Single View HISTORY: Cough COMPARISON: December 15, 2024 FINDINGS: A few areas of subsegmental atelectasis within the lung bases. No significant pleural effusion noted. The heart is moderately enlarged. Post surgical changes involve the chest
[2024-12-23] MEDS: INSULIN REGULAR (HUMAN) 100 UNIT/ML SQ SCH (21:00)
[2024-12-23] MEDS: DOXYCYCLINE 100 MG CAP PO SCH (21:20)
[2024-12-23] MEDS: AMOX/K CLAV 500 MG TAB PO SCH (21:20)
[2024-12-23 22:20] LABS: Absolute Lymphocytes (CBC) 0.5 K/uL (0.7-4.9); Hematocrit 28.0 % (39.6-49.0); Hemoglobin 9.4 g/dL (13.6-17.9); MCH 29.4 pg (27.0-35.0); MCHC 33.5 g/dL (32.0-36.0); MCV 88.0 fL (80-100); MPV 6.9 fL (7.6-11.3); Nucleated RBC Absolute Count 0.0 (0-0); Nucleated Red Blood Cells % 0.0 % (0-0); RBC Red Blood Cell Count 3.18 M/uL (4.33-5.43); White Blood Count 10.90 thou/uL (4.3-10.9)
[2024-12-23 22:34] LABS: ALT/SGPT 33.0 U/L (16-61); AST/SGOT 29.0 U/L (15-37); Albumin 2.8 g/dL (3.4-5.0); Albumin/Globulin Ratio 0.8 (1.1-1.8); Alkaline Phosphatase 206.0 U/L (45-117); Anion Gap 4.9 mEq/L (5.0-15.0); BUN Blood Urea Nitrogen 32.0 mg/dL (7-18); Globulin 3.6 g/dL (2.3-3.5); Glucose Level 137.0 mg/dL (74-106); Magnesium 2.5 mg/dL (1.6-2.4); NT PRO-BNP 8409.0 pg/mL (<450); Potassium 3.9 mEq/L (3.5-5.1)
[2024-12-23 22:45] VITALS: O2SAT 100
[2024-12-23] MEDS: ENOXAPARIN 40 MG/0.4 ML SQ SCH (23:16)
[2024-12-24 00:04] LABS: Differential Total Cells Count 100; Segmented Neutrophils 73 % (40-80)
[2024-12-24 00:05] LABS: Blood Morphology Comment NOT SEEN (NOT SEEN)
--- NOTE | 2024-12-24 06:15 | HP ---
Date of Admission: 12/23/2024 Chief Complaint: Shortness of breath, leg swelling, and leg pain. History Of Present Illness: Mr. Berg is a very pleasant male patient who was recently in the hospital with acute exacerbation of congestive heart failure and prior to that, his hospital admission was because of acute kidney injury and this is all within last 2-4 weeks. The last hospital admission was last week and he was discharged to go home 4 days ago with furosemide 40 mg 2 times a day. During his last hospital stay, his bilateral leg swelling had almost completely resolved and had significant area of cellulitis involving left medial thigh and medial part of the left knee and that also had significantly improved with IV Zosyn and IV doxycycline and he was discharged to go home with oral Augmentin and oral doxycycline along with furosemide. The patient came into office today in wheelchair, not able to ambulate because of significant weakness, leg pain, and leg swelling and also reporting shortness of breath when he is lying down in the bed. This is all since he came home 4 days ago and after I evaluated him, I noted that he had significant leg swelling along with his exacerbation of his congestive heart failure and I did start having discussion with the patient regarding hospice care considering his multiple chronic comorbidities and including now the fact that within 4 days after coming home from the hospital, he is getting back into the hospital again with this problem, so we did discuss option of either going home with hospice care or going to hospital to get IV diuretic therapy and then at appropriate time go home with hospice care and he has elected the latter option, so decision was made and arrangements were made for him to be admitted directly to the hospital. Denies any chest pain, nausea, vomiting, diarrhea. He has chronic cough with chronic dyspnea with day-to-day activities. Medications: Albuterol inhaler 2 puffs 4 times a day as needed, aspirin 81 mg daily, atorvastatin 40 mg daily at bedtime, Trelegy Ellipta 1 puff daily, gabapentin 100 mg 2 times a day, levothyroxine 25 mcg daily, Tradjenta 5 mg daily in morning with breakfast, montelukast 10 mg daily, nystatin cream 2 times a day apply to rash area, pantoprazole 40 mg daily, ropinirole 1 mg 2 times a day, valacyclovir 500 mg daily, augmentin 500 mg 2 times a day, doxycycline 100 mg 2 times a day, furosemide 40 mg 2 times a day. Allergies: TO BETADINE CAUSING RASH. Review of Systems: Musculoskeletal: As mentioned above. Respiratory: As mentioned above. Cardiovascular: Leg edema. All other systems reviewed and negative. 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 Fregoso, constipation, chronic kidney disease, benign prostatic hypertrophy, osteoarthritis at multiple sites, lumbar spinal stenosis, and hypokalemia, chronic systolic heart failure. Past Surgical History: Teeth extraction, coronary artery bypass surgery, surgery for right radius and ulna fracture, and hip and knee surgery. Family History: Mother had Alzheimer's disease, diabetes, and tuberculosis. Brother had stroke. Social History: Prior history of smoking, not at present time. Use of alcohol negative. He quit using alcohol in 2006. Physical Examination: Vital Signs: Height 5 feet 10 inches, weight 175 pounds. Temperature 96.8, pulse 82, respiratory rate 16, blood pressure 127/79, oxygen saturation 100%. General: Awake, alert, oriented, not in distress. HEENT: Head atraumatic, normocephalic. Conjunctivae nonerythematous. Sclerae white. Mouth, no thrush or edema noted. Ears/Nose, no mass, lesion, discharge noted. Neck: Supple. No JVD, lymph nodes, bruit, thyromegaly noted. Lungs: Bilateral good equal air entry. Presence of basal rales in both lung parrish. Not using accessory muscles of respiration. Heart: Normal heart sounds, no murmur or gallop. Abdomen: Soft, bowel sounds normal. No guarding, rigidity, tenderness, mass, hepatosplenomegaly, distention, or bruit noted. Extremities: Extensive grade 3 pedal edema involving both lower extremities extending all the way to his thigh from the feet. Left lower medial thigh has pink, warm skin, not significantly different than what it was when he was released from the hospital and this is overall much better than what it was when he was first admitted to the hospital last week. Skin: No rash, ulcer, cellulitis. Lymphatics: No lymph node enlargement in neck, supraclavicular, infraclavicular region. Neuro: No focal neurological deficit. Chest: Unremarkable. External Genitalia: Deferred. Rectal: Deferred. Laboratory Data: WBC 10.9, hemoglobin 9.4, platelets 184. Sodium 142, potassium 3.9, chloride 109, bicarb 32, BUN 32, creatinine 1.47, glucose 137. Liver function tests are unremarkable. ProBNP 8409. Chest x-ray, no acute cardiopulmonary changes. Impression: 1. Congestive heart failure, chronic, systolic, with acute exacerbation. 2. Cellulitis, left leg. 3. Chronic kidney disease stage IIIA. 4. Hypothyroidism. 5. Type 2 diabetes mellitus. 6. Hypertension. 7. Hyperlipidemia. 8. Coronary artery disease. 9. Paroxysmal atrial fibrillation. 10. Cellulitis, left lower extremity. 11. Osteoarthritis, multiple sites. 12. Restless legs syndrome. 13. Nonalcoholic fatty liver disease. 14. COPD. Plan: We will go ahead and admit the patient to hospital for further evaluation and management of this problem. This is his second admission within short period of time related to the same problem of congestive heart failure. He was just discharged to go home after significant improvement with IV diuretic therapy during last hospital admission and within 4 days now, he ends up back in the hospital with this problem of congestive heart failure along with multiple other chronic comorbidities. His overall prognosis is very poor and it is very appropriate for us to offer hospice care upon discharge from the hospital, which I did discuss with him today. The patient is agreeable to consider that upon discharge from the hospital. We will start him on IV Lasix 40 mg IV 2 times a day. Order Lovenox for DVT prophylaxis. Monitor electrolytes, renal function. Give nebulizer treatment per order. Diabetes will be managed with sliding scale insulin and his other home medications will be continued including medication for his restless legs syndrome. Blood pressure will be monitored and managed accordingly with the medication as it becomes necessary. For severe pulmonary hypertension, he is on sildenafil, which we will continue that. The patient had a recent echocardiogram done within last 2 months or so and that result was reviewed also. Total time spent 60 minutes including review of last repeat hospital admission record, evaluation and management for today, as well as making arrangements for hospital admission and discussing plan of treatment with the patient. ANNA/MODApolonia Voice ID: [id number] [email or web address]
[2024-12-24] MEDS: FUROSEMIDE 40 MG TABLET PO SCH (08:55)
[2024-12-24] MEDS: ROPINIROLE HCL 1 MG TAB PO SCH (08:55)
[2024-12-24] MEDS: GABAPENTIN 100 MG CAP PO SCH (08:55)
[2024-12-24] MEDS: MONTELUKAST 10 MG TAB PO SCH (08:58)
[2024-12-24] MEDS: VALACYCLOVIR 500 MG TAB PO SCH (09:00)
[2024-12-24] MEDS: ATORVASTATIN 40 MG TAB PO SCH (21:46)
--- NOTE | 2024-12-24 23:36 | PN ---
Date of Progress Note: 12/24/2024 Subjective: The patient was seen this morning for followup. He was lying in bed, not in distress. No new complaints or problems reported by him overnight. Objective: Vital Signs: Reviewed. HEENT: Unremarkable. Lungs: Clear to auscultation. Not using accessory muscles of respiration. Heart: Sounds normal. Abdomen: Soft. Bowel sounds normal. No guarding, rigidity, tenderness distention. Extremities: Bilateral leg edema, slightly better today as compared to yesterday and area of cellulitis from left lower medial thigh is also better today than yesterday. Laboratory Data: Upon admission yesterday, WBC 10.9, hemoglobin 9.4, platelets 184. Sodium 142, potassium 3.9, chloride 109, bicarb 32, BUN 32, creatinine 1.47, glucose 137. Liver function tests are unremarkable. ProBNP 8409. Chest x-ray, no acute cardiopulmonary changes. Impression: 1. Congestive heart failure, chronic, systolic, with acute exacerbation. 2. Chronic kidney disease, stage 3A. 3. Hypertension. 4. Hyperlipidemia. 5. Coronary artery disease. Plan: We will go ahead and continue current diuretic therapy. Continue current antibiotic for left leg cellulitis, which is Augmentin and doxycycline. I have discussed with the patient once again this morning regarding my recommendation of him going home with hospice care and explained him reason for that. He understands and agrees with that. We will consult Social Service to make these arrangements. Possible discharge to go home in next couple of days with hospice care. ANNA/MODL Voice ID: [id number] Report ID: [id number] CAMACHO
[2024-12-25 06:15] LABS: Anion Gap 4.7 mEq/L (5.0-15.0); BUN Blood Urea Nitrogen 33.0 mg/dL (7-18); Glucose Level 97.0 mg/dL (74-106); Potassium 4.7 mEq/L (3.5-5.1)
[2024-12-25 06:16] LABS: Absolute Lymphocytes (CBC) 0.4 K/uL (0.7-4.9); Hematocrit 30.7 % (39.6-49.0); Hemoglobin 9.9 g/dL (13.6-17.9); MCH 28.6 pg (27.0-35.0); MCHC 32.1 g/dL (32.0-36.0); MCV 89.1 fL (80-100); MPV 7.6 fL (7.6-11.3); Magnesium 2.4 mg/dL (1.6-2.4); Nucleated RBC Absolute Count 0.0 (0-0); Nucleated Red Blood Cells % 0.1 % (0-0); RBC Red Blood Cell Count 3.45 M/uL (4.33-5.43); White Blood Count 6.40 thou/uL (4.3-10.9)
[2024-12-25] MEDS: LEVOTHYROXINE SOD 0.025 MG TAB PO SCH (06:34)
[2024-12-25] MEDS: PANTOPRAZOLE 40MG TABLET PO SCH (06:34)
--- NOTE | 2024-12-25 20:35 | PN ---
Date of Progress Note: 12/25/2024 Subjective: The patient was seen this morning for followup. No new complaints or problems reported by the patient. He was sleeping, easily arousable, not in distress. Denies any complaints like ches t pain, shortness of breath, nausea, vomiting. Objective: Vital Signs: Reviewed. HEENT: Unremarkable. Lungs: Clear to auscultation. Heart: Sounds normal. Abdomen: Soft. Bowel sounds normal. No guarding, rigidity, tenderness, distention. Extremities: Bilateral leg edema present, but significant improvement from the edema of the thigh. Both lower extremity between knee and ankle has leg edema, but it is actually better today compared t o yesterday and day before yesterday. The patient does not have any open sore or any open wound on h is lower legs. Impression: 1. Congestive heart failure, chronic, systolic, with acute exacerbation. 2. Hypertension. 3. Hyperlipidemia. Plan: We will go ahead and continue current medications. Continue current antibiotic for cellulitis of left lower extremity. Continue current diuretic therapy. Social Service is in process of making arrangements for the patient to go to home health agency. The patient to make arrangements for roger ent to go home with hospice care and possible discharge to go home tomorrow. Details were discussed with the patient. ANNA/MODL Voice ID: [id number] Report ID: [id number]
[2024-12-26 08:12] VITALS: BP 154/87; TEMP 97.6
--- NOTE | 2024-12-27 02:46 | DS ---
Date of Discharge: 12/26/2024 Disposition: Discharged to go home with hospice care. Discharge Medications And Instructions: Patient to be admitted to hospice care upon discharge and hospice general medical practitioner to take over care. Continue all prior home medications as below: Albuterol inhaler 2 puffs 4 times a day as needed, aspirin 81 mg daily, atorvastatin 40 mg daily at bedtime, Trelegy Ellipta 1 puff daily, gabapentin 100 mg 2 times a day, levothyroxine 25 mcg daily, Tradjenta 5 mg daily in morning with breakfast, montelukast 10 mg daily, nystatin cream 2 times a day apply to rash area, pantoprazole 40 mg daily, ropinirole 1 mg 2 times a day, valacyclovir 500 mg daily, furosemide 40 mg 2 times a day. Start following new medication and prescription was [facility] to [facility] from Dr. Veliz's office: Doxycyline 100 mg, take 1 capsule by mouth two times a day with food for 7 days. Augmentin 500 mg, take 1 tablet by mouth two times a day with food for 7 days. Oxygen 2 LPM via nasal cannula Comfort care orders as per hospice. Laboratory Data: WBC 10.9, hemoglobin 9.4, platelets 184. Sodium 142, potassium 3.9, chloride 109, bicarb 32, BUN 32, creatinine 1.47, glucose 137. Liver function tests are unremarkable. ProBNP 8409. Chest x-ray, no acute cardiopulmonary changes. Physical Examination: Vital signs reviewed. HEENT: Unremarkable. Lungs: Clear to auscultation, no rales or rhonchi. Heart: Normal sound, no gallop. Abdomen: Soft, no guarding, rigidity or tenderness. Normal bowel sounds. Extremities: Leg swelling has resolved, left lower medial thigh area of cellulitis has almost completely resolved. Discharge Diagnoses: 1. Congestive heart failure, chronic, systolic, with acute exacerbation. 2. Cellulitis, left leg. 3. Chronic kidney disease stage IIIA. 4. Hypothyroidism. 5. Type 2 diabetes mellitus. 6. Hypertension. 7. Hyperlipidemia. 8. Coronary artery disease. 9. Paroxysmal atrial fibrillation. 10. Cellulitis, left lower extremity. 11. Osteoarthritis, multiple sites. 12. Restless legs syndrome. 13. Nonalcoholic fatty liver disease. 14. COPD. Hospital Course: This is a 74-year-old male patient with multiple chronic comorbidities, was admitted to the hospital with worsening of congestive heart failure problem. The patient was admitted this time again within matter of 4-5 days after discharge from the hospital and in spite of taking his medication, he ended up getting into trouble with recurrence of congestive heart failure to the extent that he required a hospital admission. He has multiple chronic medical problems and over period of time lately, his condition has gotten worse to the extent that I did bring up discussion about hospice care and the patient was agreeable to go on hospice care, so Social Service was consulted and arrangements were made for patient to go home today with hospice care. Overall, prognosis is poor. During this hospitalization, we continued his oral antibiotic, which is Augmentin and doxycycline and gave him IV Lasix and overall his leg swelling problem has improved. Today, he was discharged to go home in improved condition, but his overall prognosis is poor. ANNA/ARMANDO Voice ID: [id number] Report ID: [id number] CAMACHO
== END 2024-12-26 10:29 | disposition hospice, home (50) | DRG 291 ==
LOC: 4TH 18:16
PROVIDERS: ADMIT Internal Medicine; ATTEND Internal Medicine
DX: I13.0 Hypertensive heart and chronic kidney disease with heart failure and stage 1 through stage 4 chronic kidney disease, or unspecified chronic kidney disease (principal); I50.23 Acute on chronic systolic (congestive) heart failure; L03.116 Cellulitis of left lower limb; N18.31 Chronic kidney disease, stage 3a; E03.9 Hypothyroidism, unspecified; E78.5 Hyperlipidemia, unspecified; I48.0 Paroxysmal atrial fibrillation; G25.81 Restless legs syndrome; I27.20 Pulmonary hypertension, unspecified; M19.09 Primary osteoarthritis, other specified site; K76.0 Fatty (change of) liver, not elsewhere classified; J44.9 Chronic obstructive pulmonary disease, unspecified; N40.0 Benign prostatic hyperplasia without lower urinary tract symptoms; I25.10 Atherosclerotic heart disease of native coronary artery without angina pectoris; Z79.01 Long term (current) use of anticoagulants; Z91.048 Other nonmedicinal substance allergy status
CPT/HCPCS: 36415; 71045; 80048; 80053; 82947; 83735; 83880; 85025; J1650